=== PATIENT | female | born 1935 | race American Indian/Alaskan Native ===

== ENCOUNTER 2018-05-25 18:30 | Inpatient (IN) | payer MEDICARE, BC, SELFPAY ==
[2018-05-25 19:13] VITALS: BP 147/76; PULSE 70; RESP 18; TEMP 36.7; O2SAT 98
[2018-05-25 19:49] VITALS: BMI 35.9
[2018-05-25 20:03] VITALS: BMI 35.9
--- NOTE | 2018-05-25 20:16 | PCM.HP.STD ---
Problem List (1) Venous stasis ulcer of right lower extremity Status: Chronic (2) Coronary artery disease Status: Chronic (3) Atrial fibrillation Status: Chronic (4) COPD (chronic obstructive pulmonary disease) Status: Chronic (5) Sleep apnea Status: Chronic (6) Edema Status: Chronic (7) Neuropathic pain Status: Chronic (8) GERD (gastroesophageal reflux disease) Status: Chronic (9) Migraine Status: Chronic (10) Obesity Status: Chronic (11) Vitamin D deficiency Status: Chronic (12) Hypertension Status: Chronic Qualifiers: (13) Hypothyroidism Status: Chronic (14) Osteoarthritis (arthritis due to wear and tear of joints) Status: Chronic History of Present Illness Date of Admission: 05/25/18 Chief Complaint: Here for rehabilitation, strengthening, wound care, prior to discharge home. The patient is a 82 year old Female with below past medical history, [facility] resident, admitted to [facility] 05/22/2018 with non-healing venous stasis ulcer of right lower extremity. 08/01/2017 Patient was admitted to [facility] with bilateral lower extremity cellulitis, treated with antibiotics, whether she had cellulitis or venous stasis dermatitis was difficult to determine. Her wound culture did grow MSSA which was treated with short course of cephalexin. 05/25/2018 Admit to TCU with debility, here for rehabilitation, strengthening, wound care, prior to discharge home. 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) Vitamin D deficiency (Chronic) Neuropathy (Chronic) 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) Malnutrition (Chronic) Ulcer of right leg (Chronic) Cellulitis of right lower extremity (Chronic) Leg ulcer, left (Chronic) Edema leg (Chronic) Lymphedema of lower extremity (Chronic) Congestive heart failure (Chronic) History of myocardial infarction (Chronic) Incontinence of urine (Chronic) Hypertension (Chronic) Morbid obesity (Chronic) Hypothyroidism (Chronic) Hypercholesterolemia (Chronic) Osteoarthritis (arthritis due to wear and tear of joints) (Chronic) Rheumatoid arthritis (Chronic) Allergies No Known Allergies Allergy (Verified 08/01/17 12:37) Home Medications: Ambulatory Orders Medication Instructions Recorded Warfarin [Coumadin] 3 mg PO DAILY 01/17/17 Acetaminophen [Pain Relief Extra 1,000 mg PO Q8H PRN PRN 04/25/17 Strength] Aspirin [Aspir-Low] 81 mg PO QHS 04/25/17 Gabapentin [Neurontin] 300 mg PO BIDCM 04/25/17 Polyethylene Glycol 3350 [Miralax] 17 gm PO PRN PRN 04/25/17 Omeprazole 20 mg PO DAILY 04/26/17 Levothyroxine [Synthroid] 100 mcg PO DAILY@0600 08/01/17 Ascorbic Acid [Vitamin C] 250 mg PO DAILY 05/25/18 Docusate Sodium [Colace] 100 mg PO DAILY PRN PRN 05/25/18 Ergocalciferol [Vitamin D] 50,000 unit PO Q7D 05/25/18 Lisinopril [Zestril] 2.5 mg PO DAILY 05/25/18 Multivitamin with Iron 1 each PO DAILY 05/25/18 [Multivitamins with Iron] Torsemide [Demadex] 20 mg PO DAILY 05/25/18 Surgical History: herniorrhaphy, hysterectomy, total knee arthroplasty - Bilateral., tonsillectomy, - - Cardiac stents x 2, gastric bypass surgery, right ankle ORIF. 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 The patient's mother at the age of 90 with a history of arthritis. Paternal History Items: Heart Disease Review of Systems Constitutional: Denies: Chills, Fever, Weight Change HEENT: Denies: Head Aches, Sinus Congestion, Sinus Drainage Cardiovascular: Denies: Chest Pain, Palpitations Respiratory: Denies: Cough, Shortness of breath at rest, Sputum production Gastrointestinal: Denies: Abdominal Pain, Nausea, Vomiting Genitourinary: Denies: Dysuria Musculoskeletal: Denies: Joint Pain, Joint Tenderness Skin: Denies: Rash, Wounds Neurological: Denies: Numbness, Tingling, Focal weakness Psychiatric: Denies: Anxiety, Depression, Homicidal Ideations, Suicidal Ideations Hematologic/ Lymphatic: Denies: Easy Bruising, Easy Bleeding VTE Information - Inpt Only VTE Present on Admission: No VTE Mechan Device Prophylaxis: Knee High AURELIANO Hose VTE Pharm Prophylaxis ordered?: No Reason prophylaxis not ordered:: Treatment Not Indicated - Physical Exam General: Alert, Oriented x3, Cooperative HEENT: Atraumatic, PERRLA, EOMI, Normocephalic Neck: Supple, No JVD, Negative Carotid Bruits Lungs: Clear to auscultation, Normal air movement Cardiovascular: Regular rate, No murmurs Abdomen: Bowel Sounds Present, Soft, Non Tender Extremities: Capillary Refill Less than 3 Seconds, - - Bilateral lower extremities with compressive dressings. Skin: No rashes, No breakdown Musculoskeletal: No Tenderness to Palpation of Joints or Extremities Neurological: Cranial nerves II-XII grossly intact Psych/Mental Status: Normal Affect, Appropriate Weight: 94.801 kg Body Mass Index (BMI) 35.9 Assessment/Plan All Active Problems Right tibial fracture (Resolved) Cellulitis of the legs (Acute) 82 year old female with below past medical history hospitalized for non-healing right lower extremity venous stasis ulcer, admitted to TCU with debility, here for rehabilitation, strengthening, wound care, prior to discharge home. Debility - PT/OT. Pain - Tylenol 1000MG Q8H PRN mild pain. Bowel - Miralax 17GM daily, Senna/colace 1 tablet BID, Dulcolax 10MG PO daily PRN. Pneumonia vaccination - Administer Prevnar 13 and/or Pneumovax 23 as necessary. DVT prophylaxis - Not necessary, already on warfarin. RLE venous stasis ulcer - consult Anat Pizarro RN for wound management. Vitamin C deficiency - Vitamin C 250MG daily. Coronary Artery Disease - Lisinopril 2.5MG daily, Aspirin 81MG daily. Nutrition - Ensure Enlive 120ML 4x/day, MVI daily. Vitamin D deficiency - D2 50,000 units per week. Edema - Lasix 40MG daily. Neuropathic pain - Gabapentin 300MG BID. Hypothyroidism - Levothyroxine 100MCG daily. GERD - Pantoprazole 20MG daily. Atrial Fibrillation - Warfarin 3MG daily, follow INR.
--- NOTE | 2018-05-25 20:20 | NURSING ---
Code status discussed with pt and [id number]/ POA Sharda Xavier, pt wishes to be a full code.
--- NOTE | 2018-05-25 20:26 | HP.PCM_ITS ---
Problem List (1) Venous stasis ulcer of right lower extremity Status: Chronic (2) Coronary artery disease Status: Chronic (3) Atrial fibrillation Status: Chronic (4) COPD (chronic obstructive pulmonary disease) Status: Chronic (5) Sleep apnea Status: Chronic (6) Edema Status: Chronic (7) Neuropathic pain Status: Chronic (8) GERD (gastroesophageal reflux disease) Status: Chronic (9) Migraine Status: Chronic (10) Obesity Status: Chronic (11) Vitamin D deficiency Status: Chronic (12) Hypertension Status: Chronic Qualifiers: (13) Hypothyroidism Status: Chronic (14) Osteoarthritis (arthritis due to wear and tear of joints) Status: Chronic History of Present Illness Date of Admission: 05/25/18 Chief Complaint: Here for rehabilitation, strengthening, wound care, prior to discharge home. The patient is a 82 year old Female with below past medical history, [facility] resident, admitted to [facility] 05/22/2018 with non-healing venous stasis ulcer of right lower extremity. 08/01/2017 Patient was admitted to [facility] with bilateral lower extremity cellulitis, treated with antibiotics, whether she had cellulitis or venous stasis dermatitis was difficult to determine. Her wound culture did grow MSSA which was treated with short course of cephalexin. 05/25/2018 Admit to TCU with debility, here for rehabilitation, strengthening, wound care, prior to discharge home. 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) Vitamin D deficiency (Chronic) Neuropathy (Chronic) 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) Malnutrition (Chronic) Ulcer of right leg (Chronic) Cellulitis of right lower extremity (Chronic) Leg ulcer, left (Chronic) Edema leg (Chronic) Lymphedema of lower extremity (Chronic) Congestive heart failure (Chronic) History of myocardial infarction (Chronic) Incontinence of urine (Chronic) Hypertension (Chronic) Morbid obesity (Chronic) Hypothyroidism (Chronic) Hypercholesterolemia (Chronic) Osteoarthritis (arthritis due to wear and tear of joints) (Chronic) Rheumatoid arthritis (Chronic) Allergies No Known Allergies Allergy (Verified 08/01/17 12:37) Home Medications: Ambulatory Orders Medication Instructions Recorded Warfarin [Coumadin] 3 mg PO DAILY 01/17/17 Acetaminophen [Pain Relief Extra 1,000 mg PO Q8H PRN PRN 04/25/17 Strength] Aspirin [Aspir-Low] 81 mg PO QHS 04/25/17 Gabapentin [Neurontin] 300 mg PO BIDCM 04/25/17 Polyethylene Glycol 3350 [Miralax] 17 gm PO PRN PRN 04/25/17 Omeprazole 20 mg PO DAILY 04/26/17 Levothyroxine [Synthroid] 100 mcg PO DAILY@0600 08/01/17 Ascorbic Acid [Vitamin C] 250 mg PO DAILY 05/25/18 Docusate Sodium [Colace] 100 mg PO DAILY PRN PRN 05/25/18 Ergocalciferol [Vitamin D] 50,000 unit PO Q7D 05/25/18 Lisinopril [Zestril] 2.5 mg PO DAILY 05/25/18 Multivitamin with Iron 1 each PO DAILY 05/25/18 [Multivitamins with Iron] Torsemide [Demadex] 20 mg PO DAILY 05/25/18 Surgical History: herniorrhaphy, hysterectomy, total knee arthroplasty - Bilateral., tonsillectomy, - - Cardiac stents x 2, gastric bypass surgery, right ankle ORIF. 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 The patient's mother at the age of 90 with a history of arthritis. Paternal History Items: Heart Disease Review of Systems Constitutional: Denies: Chills, Fever, Weight Change HEENT: Denies: Head Aches, Sinus Congestion, Sinus Drainage Cardiovascular: Denies: Chest Pain, Palpitations Respiratory: Denies: Cough, Shortness of breath at rest, Sputum production Gastrointestinal: Denies: Abdominal Pain, Nausea, Vomiting Genitourinary: Denies: Dysuria Musculoskeletal: Denies: Joint Pain, Joint Tenderness Skin: Denies: Rash, Wounds Neurological: Denies: Numbness, Tingling, Focal weakness Psychiatric: Denies: Anxiety, Depression, Homicidal Ideations, Suicidal Ideations Hematologic/ Lymphatic: Denies: Easy Bruising, Easy Bleeding VTE Information - Inpt Only VTE Present on Admission: No VTE Mechan Device Prophylaxis: Knee High AURELIANO Hose VTE Pharm Prophylaxis ordered?: No Reason prophylaxis not ordered:: Treatment Not Indicated - Physical Exam General: Alert, Oriented x3, Cooperative HEENT: Atraumatic, PERRLA, EOMI, Normocephalic Neck: Supple, No JVD, Negative Carotid Bruits Lungs: Clear to auscultation, Normal air movement Cardiovascular: Regular rate, No murmurs Abdomen: Bowel Sounds Present, Soft, Non Tender Extremities: Capillary Refill Less than 3 Seconds, - - Bilateral lower extremities with compressive dressings. Skin: No rashes, No breakdown Musculoskeletal: No Tenderness to Palpation of Joints or Extremities Neurological: Cranial nerves II-XII grossly intact Psych/Mental Status: Normal Affect, Appropriate Weight: 94.801 kg Body Mass Index (BMI) 35.9 Assessment/Plan All Active Problems Right tibial fracture (Resolved) Cellulitis of the legs (Acute) 82 year old female with below past medical history hospitalized for non-healing right lower extremity venous stasis ulcer, admitted to TCU with debility, here for rehabilitation, strengthening, wound care, prior to discharge home. * Debility - PT/OT. * Pain - Tylenol 1000MG Q8H PRN mild pain. * Bowel - Miralax 17GM daily, Senna/colace 1 tablet BID, Dulcolax 10MG PO daily PRN. * Pneumonia vaccination - Administer Prevnar 13 and/or Pneumovax 23 as necessary. * DVT prophylaxis - Not necessary, already on warfarin. * RLE venous stasis ulcer - consult Anat Pizarro RN for wound management. * Vitamin C deficiency - Vitamin C 250MG daily. * Coronary Artery Disease - Lisinopril 2.5MG daily, Aspirin 81MG daily. * Nutrition - Ensure Enlive 120ML 4x/day, MVI daily. * Vitamin D deficiency - D2 50,000 units per week. * Edema - Lasix 40MG daily. * Neuropathic pain - Gabapentin 300MG BID. * Hypothyroidism - Levothyroxine 100MCG daily. * GERD - Pantoprazole 20MG daily. * Atrial Fibrillation - Warfarin 3MG daily, follow INR.
[2018-05-25] MEDS: Acetaminophen 500 MG Tablet 1000 MG PO (21:23)
--- NOTE | 2018-05-25 21:49 | NURSING ---
Dr. Sweet updated on increased pain. N.O entered.
[2018-05-26] MEDS: oxyCODONE 5 MG Tablet PO ×4 (01:54→21:42)
[2018-05-26] MEDS: Senna/Docusate Sodium 1 Tablet PO ×2 (04:49→17:08)
[2018-05-26] MEDS: Polyethylene Glycol 3350 17 GM PACKET PO (04:49)
[2018-05-26] MEDS: Levothyroxine 100 MCG Tablet PO (04:49)
[2018-05-26] MEDS: Furosemide 40 MG Tablet PO (04:49)
[2018-05-26] MEDS: Pantoprazole Sodium 20 MG Tablet PO (04:49)
[2018-05-26] MEDS: Lisinopril 2.5 MG Tablet PO (04:49)
[2018-05-26] MEDS: Ascorbic Acid 500 MG Tablet 250 MG PO (04:50)
[2018-05-26] MEDS: Menthol/Lanolin/Calamine/Znox 113 GM Tube 1 APPLIC TOPICAL ×2 (04:52→21:50)
[2018-05-26] MEDS: Nystatin Powder 15gm Bottle 1 APPLIC TOPICAL ×2 (04:52→21:45)
--- NOTE | 2018-05-26 04:54 | NURSING ---
pt states that she needs something for nausea because if she smells food it will make her sick to her stomach. nurse is aware
[2018-05-26 06:18] LABS: Absolute Lymphocyte Count 0.99 X10^3/ul (0.83-4.51); Absolute Neutrophil Count 3.9 X10^3/uL (2.0-7.7); Basophil# 0.03 X10^3/uL; Basophil% 0.5 % (0-1); Eosinophils% 3.6 % (0-5); Hematocrit 32.3 % (37-47); Hemoglobin 9.5 g/dl (12.0-15.0); Lymphocyte # 0.99 X10^3/ul (4.0); Lymphocyte % 17.8 % (19-41); Mean Corp Hgb Conc 29.4 g/gl (32-36); Mean Corpuscular Hgb 27.1 pg (27.0-32.0); Mean Platelet Vol. 9.6 fl (6.2-12.0); Monocyte# 0.45 X10^3/uL; Monocyte% 8.1 % (0-10); Neutrophil # 3.86 X10^3/uL (2.7-7.7); Neutrophil % 69.6 % (47-70); Platelet Count 250 K/mm3 (150-450); RBC Distribution Width SD 56.5 fl (35.1-43.9); Red Blood Count 3.51 M/mm3 (4.2-5.4); White Blood Count 5.6 K/mm3 (4.4-11.0)
[2018-05-26 06:25] LABS: International Normalized Ratio 1.7; Prothrombin Time (Protime)PT. 19.9 SECONDS (11.7-14.9)
[2018-05-26 06:33] LABS: Anion Gap 5 (5-15); BUN 20 mg/dL (7-18); BUN/Creat Ratio 25.4 RATIO (10-20); Calcium,Total 8.1 mg/dL (8.5-10.1); Chloride 104 mmol/L (98-107); Creatinine, Serum 0.79 mg/dL (0.55-1.02); EST Glomerular Filtration Rate 74 mL/min (>60); Est Glom Filt Rate - Afr Amer 90 mL/min (>60); Glucose 108 mg/dL (74-106); Potassium 4.4 mmol/L (3.5-5.1); Sodium Level 137 mmol/L (136-145)
[2018-05-26 06:37] LABS: POSITIVE COUNT NO; POSITIVE DIFFERENTIAL NO; POSITIVE MORPHOLOGY NO
[2018-05-26 06:38] VITALS: O2SAT 95
[2018-05-26] MEDS: Multivitamins,Ther W-Minerals Tablet 1 TABLET PO (09:07)
[2018-05-26] MEDS: Gabapentin 300 MG Capsule PO ×2 (09:07→17:09)
[2018-05-26] MEDS: Oxymetazoline 0.05% 1 SPRAY SPRAY.BTL 2 SPRAY NASAL (09:12)
[2018-05-26] MEDS: Tuberculin,Purif.prot.deriv. 50 TU/ML Vial 5 ML ID (09:17)
--- NOTE | 2018-05-26 11:28 | CASEMGMT ---
Social Work Assessment completed with resident. Resident presenting as irritated. This manager social responsibility inquiring how resident is doing. Resident reporting to be tired but open to this manager social responsibility completing assessment. Throughout assessment resident would take extended periods of time to respond to questions and did not initiate conversation. When this manager social responsibility asked if resident has a history of current diagnosis of depression. Resident leaned up in the chair and reporting to have lost a son 1 month ago and wanted to know what do you think. This manager social responsibility exploring the grieving process with resident. Resident reluctant to speak much about where resident currently is in the grieving process and reporting to not want to talk about it at this time. Resident was open to this manager social responsibility contacting resident [id number] (resident son, that ). Attempting to contact resident daughter in law, no answer at this time, was not able to leave a voicemail. Resident reporting to have had 6 children total and to have now lost 2 sons. Emotional support given. Will continue to follow. Jayda YOO, MOLD STAMPER AND REPAIRER
--- NOTE | 2018-05-26 12:26 | NURSING ---
NEW ORDER TO INCREASE COUMADIN ON FRIDAYS TO 4MG AND 3 MG REST OF WEEK. INR 1.7 TODAY.
[2018-05-26 15:36] VITALS: BP 106/40; PULSE 66; RESP 20; TEMP 36.6; O2SAT 96
--- NOTE | 2018-05-26 15:38 | NURSING ---
Labs reviewed by Jeffrey Gannon NP today. no new orders.
[2018-05-26 16:29] VITALS: PULSE 65; RESP 18; O2SAT 96
[2018-05-26] MEDS: Ondansetron ODT 4 MG Tablet PO (17:09)
[2018-05-26] MEDS: Aspirin E.C. 81 MG Tablet PO (21:39)
[2018-05-27] MEDS: oxyCODONE 5 MG Tablet PO ×4 (05:34→21:43)
[2018-05-27] MEDS: Furosemide 40 MG Tablet PO (05:35)
[2018-05-27] MEDS: Levothyroxine 100 MCG Tablet PO (05:35)
[2018-05-27] MEDS: Pantoprazole Sodium 20 MG Tablet PO (05:35)
[2018-05-27] MEDS: Senna/Docusate Sodium 1 Tablet PO ×2 (05:35→17:17)
[2018-05-27] MEDS: Ascorbic Acid 500 MG Tablet 250 MG PO (05:35)
[2018-05-27] MEDS: Lisinopril 2.5 MG Tablet PO (05:36)
[2018-05-27] MEDS: Polyethylene Glycol 3350 17 GM PACKET PO (05:37)
[2018-05-27] MEDS: Menthol/Lanolin/Calamine/Znox 113 GM Tube 1 APPLIC TOPICAL ×2 (05:41→21:45)
[2018-05-27] MEDS: Nystatin Powder 15gm Bottle 1 APPLIC TOPICAL ×2 (05:42→21:45)
--- NOTE | 2018-05-27 07:32 | NURSING ---
pt has a yeast odor to vagina area had the Rn Mari look at it also. Pt also has jere lip stated having some burning got some lip moisture for her lips and applied.
[2018-05-27] MEDS: Multivitamins,Ther W-Minerals Tablet 1 TABLET PO (09:28)
[2018-05-27] MEDS: Gabapentin 300 MG Capsule PO ×2 (09:28→17:17)
[2018-05-27] MEDS: Ondansetron ODT 4 MG Tablet PO (12:42)
[2018-05-27 16:00] VITALS: BP 105/58; PULSE 74; RESP 18; TEMP 37.1; O2SAT 93
[2018-05-27] MEDS: Aspirin E.C. 81 MG Tablet PO (21:46)
[2018-05-28] MEDS: Menthol/Lanolin/Calamine/Znox 113 GM Tube 1 APPLIC TOPICAL ×2 (05:48→21:17)
[2018-05-28] MEDS: oxyCODONE 5 MG Tablet PO ×3 (05:48→21:15)
[2018-05-28] MEDS: Ascorbic Acid 500 MG Tablet 250 MG PO (05:49)
[2018-05-28] MEDS: Levothyroxine 100 MCG Tablet PO (05:55)
[2018-05-28] MEDS: Pantoprazole Sodium 20 MG Tablet PO (05:55)
[2018-05-28] MEDS: Nystatin Powder 15gm Bottle 1 APPLIC TOPICAL ×2 (05:55→21:18)
[2018-05-28] MEDS: Lisinopril 2.5 MG Tablet PO (05:55)
[2018-05-28] MEDS: Senna/Docusate Sodium 1 Tablet PO ×2 (05:56→17:59)
[2018-05-28] MEDS: Furosemide 40 MG Tablet PO (05:56)
[2018-05-28 06:53] VITALS: O2SAT 95
[2018-05-28] MEDS: Gabapentin 300 MG Capsule PO ×2 (08:21→17:59)
[2018-05-28] MEDS: Multivitamins,Ther W-Minerals Tablet 1 TABLET PO (08:21)
[2018-05-28] MEDS: Ondansetron ODT 4 MG Tablet PO (09:16)
[2018-05-28 16:00] VITALS: BP 116/70; PULSE 79; RESP 18; TEMP 36.7; O2SAT 92
[2018-05-28] MEDS: Aspirin E.C. 81 MG Tablet PO (21:15)
[2018-05-28 22:00] VITALS: PULSE 78; RESP 18; O2SAT 93
[2018-05-29] MEDS: oxyCODONE 5 MG Tablet PO ×4 (01:20→21:00)
[2018-05-29] MEDS: Ondansetron ODT 4 MG Tablet PO ×2 (01:34→10:18)
[2018-05-29] MEDS: Levothyroxine 100 MCG Tablet PO (05:19)
[2018-05-29] MEDS: Ascorbic Acid 500 MG Tablet 250 MG PO (05:20)
[2018-05-29] MEDS: Senna/Docusate Sodium 1 Tablet PO ×2 (05:20→17:04)
[2018-05-29] MEDS: Nystatin Powder 15gm Bottle 1 APPLIC TOPICAL ×2 (05:20→20:16)
[2018-05-29] MEDS: Lisinopril 2.5 MG Tablet PO (05:20)
[2018-05-29] MEDS: Pantoprazole Sodium 20 MG Tablet PO (05:20)
[2018-05-29] MEDS: Polyethylene Glycol 3350 17 GM PACKET PO (05:21)
[2018-05-29] MEDS: Furosemide 40 MG Tablet PO (05:21)
[2018-05-29] MEDS: Menthol/Lanolin/Calamine/Znox 113 GM Tube 1 APPLIC TOPICAL ×2 (05:21→20:14)
[2018-05-29 05:53] LABS: International Normalized Ratio 1.8; Prothrombin Time (Protime)PT. 20.7 SECONDS (11.7-14.9)
[2018-05-29] MEDS: Gabapentin 300 MG Capsule PO ×2 (08:38→17:04)
[2018-05-29] MEDS: Multivitamins,Ther W-Minerals Tablet 1 TABLET PO (08:38)
--- NOTE | 2018-05-29 12:52 | PCM.PN.RX ---
<Geovanni Moore D - Last Filed: 05/29/18 12:52> Progress Note - Pharmacy Subjective: TCU Admission Objective: Allergies No Known Allergies Allergy (Verified 08/01/17 12:37) Current Medications Generic Name Dose Route Start Last Admin Trade Name Freq PRN Reason Stop Dose Admin Acetaminophen 1,000 mg 05/25/18 20:33 05/25/18 21:23 Tylenol PO 1,000 mg Q8H PRN PRN Administration MILD PAIN (1-3/10) Artificial Tears 1 drop 05/26/18 10:12 05/29/18 05:19 Tears Naturale, Artificial Tears EACH EYE 1 drop Q1H PRN PRN Administration DRY EYES Ascorbic Acid 250 mg 05/26/18 06:00 05/29/18 05:20 Vitamin C PO 250 mg DAILY [facility]STOPHER Administration Aspirin 81 mg 05/26/18 22:00 05/28/18 21:15 Ecotrin PO 81 mg QHS CH[facility]STOPHER Administration Bisacodyl 10 mg 05/25/18 20:32 Dulcolax PO DAILY PRN Constipation Calamine/Phenol 1 applic 05/26/18 06:00 05/29/18 05:21 Calmoseptine Ointment TOPICAL 1 applicatio 0600,2200 [facility] Administration Protocol Emollient Ointment 1 applic 05/26/18 06:00 05/29/18 05:21 Eucerin Intensive Repair TOPICAL 1 applicatio 0600,2200 [facility] Administration Protocol Ergocalciferol 50,000 unit 05/29/18 08:00 05/29/18 08:38 Vitamin D PO 50,000 unit Q7D [facility]STOPHER Administration Furosemide 40 mg 05/26/18 06:00 05/29/18 05:21 Lasix PO 40 mg DAILY [facility]STOPHER Administration Gabapentin 300 mg 05/26/18 08:00 05/29/18 08:38 Neurontin PO 300 mg BIDCM CH[facility]STOPHER Administration Levothyroxine Sodium 100 mcg 05/26/18 06:00 05/29/18 05:19 Synthroid PO 100 mcg DAILY@0600 [facility] Administration Lisinopril 2.5 mg 05/26/18 06:00 05/29/18 05:20 Zestril PO 2.5 mg DAILY [facility] Administration Multivitamins/Minerals 1 tablet 05/26/18 08:00 05/29/18 08:38 Multivitamin With Minerals PO 1 tablet DAILY@0800 [facility] Administration Nutritional Formula (Lactose Free) 120 ml 05/26/18 06:00 05/29/18 11:31 Ensure Enlive PO Not Given 4X/DAY [facility] Nystatin 1 applic 05/26/18 06:00 05/29/18 05:20 Mycostatin Powder TOPICAL 1 applicatio 0600,2200 [facility] Administration Protocol Ondansetron HCl 4 mg 05/26/18 10:11 05/29/18 10:18 Zofran Odt PO 4 mg Q8H PRN PRN Administration NAUSEA Oxycodone HCl 5 - 10 mg 05/29/18 09:19 Oxyir PO Q6H PRN PRN MOD-SEVERE PAIN (4-10/10) Pantoprazole Sodium 20 mg 05/26/18 06:00 05/29/18 05:20 Protonix PO 20 mg DAILY [facility] Administration Polyethylene Glycol 17 gm 05/26/18 06:00 05/29/18 05:21 Miralax PO 17 gm DAILY [facility] Administration Senna/Docusate Sodium 1 tablet 05/26/18 06:00 05/29/18 05:20 Senokot-S, Jennifer-Colace PO 1 tablet BID [facility] Administration Tuberculin PPD 5 tu 06/02/18 10:00 Tubersol, Aplisol, Ppd ID 06/02/18 10:01 X1 ONE Warfarin Sodium 3 mg 05/25/18 19:11 05/28/18 17:59 Coumadin (Pbkc) PO 3 mg DAILY@1700 [facility] Administration Warfarin Sodium 1 mg 05/29/18 17:00 Coumadin (Pbkc) PO MOFR@1700 [facility] Problem List Venous stasis ulcer of right lower extremity (Chronic) Coronary artery disease (Chronic) Atrial fibrillation (Chronic) COPD (chronic obstructive pulmonary disease) (Chronic) Sleep apnea (Chronic) Edema (Chronic) Neuropathic pain (Chronic) GERD (gastroesophageal reflux disease) (Chronic) Migraine (Chronic) Obesity (Chronic) Vital Signs Temp Pulse Resp BP Pulse Ox 98.0 F 78 18 116/70 93 05/28/18 16:00 05/28/18 22:00 05/28/18 22:00 05/28/18 16:00 05/28/18 22:00 Oxygen Flow Rate (L/min) 1 Oxygen Delivery Method Nasal Cannula Weight: 94.801 kg Body Mass Index (BMI) 35.9 Sodium 137 mmol/L (136-145) 05/26/18 05:05 Potassium 4.4 mmol/L (3.5-5.1) 05/26/18 05:05 Chloride 104 mmol/L (98-107) 05/26/18 05:05 Carbon Dioxide 28.0 mmol/L (21.0-32.0) 05/26/18 05:05 Anion Gap 5 (5-15) 05/26/18 05:05 BUN 20 mg/dL (7-18) H 05/26/18 05:05 Creatinine 0.79 mg/dL (0.55-1.02) 05/26/18 05:05 Est GFR (MDRD) Af Amer 90 mL/min (>60) 05/26/18 05:05 Est GFR (MDRD) Non-Af 74 mL/min (>60) 05/26/18 05:05 BUN/Creatinine Ratio 25.4 RATIO (10-20) H 05/26/18 05:05 Glucose 108 mg/dL (74-106) H 05/26/18 05:05 Assessment/Plan: * 1) Pain * APAP for mild pain, oxycodone for all levels of pain, gabapentin. Please update instructions on APAP/oxycodone so scores do not overlap. Continue to monitor daily pain scores, prn medication use. 2) CAD/HTN/Edema Warfarin for goal INR 2-3, ASA, lisinopril, furosemide. Continue to monitor BP/HR, renal function, electrolytes, PT/INR, s/s bleeding/clot. 3) GI Pantoprazole daily, ondansetron prn. Continue to monitor s/s GI distress, prn medication use. 4) Nutrition Multivitamin, D, Ensure, C. Continue to monitor clinically. * 5) HSV Docosonal 5x daily. Continue to monitor clinically. Please consider adding stop date. 6) Hypothyroidism Levothyroxine daily. Continue to monitor s/s hyper/hypothyroidism. Psychotropic Medications: None Unnecessary Medications: None Bowel Regimen: 7) Senna/s, PEG, prn bisacodyl. Continue to monitor prn medication use, for constipation/diarrhea. Date of Note:: 05/29/18 - Provider Comments Provider responsibility: Provider responsible to enter orders to implement recommendations <Brody Sweet Chi - Last Filed: 06/02/18 11:17> Progress Note - Pharmacy Subjective: [] Objective: Allergies No Known Allergies Allergy (Verified 08/01/17 12:37) Current Medications Generic Name Dose Route Start Last Admin Trade Name Freq PRN Reason Stop Dose Admin Acetaminophen 1,000 mg 05/25/18 20:33 05/31/18 00:41 Tylenol PO 1,000 mg Q8H PRN PRN Administration MILD PAIN (1-3/10) Artificial Tears 1 drop 05/26/18 10:12 05/29/18 05:19 Tears Naturale, Artificial Tears EACH EYE 1 drop Q1H PRN PRN Administration DRY EYES Ascorbic Acid 250 mg 05/26/18 06:00 06/02/18 08:49 Vitamin C PO 250 mg DAILY CHRISTOPHER Administration Aspirin 81 mg 05/26/18 22:00 06/01/18 20:06 Ecotrin PO 81 mg QHS CHRISTOPHER Administration Bisacodyl 10 mg 05/25/18 20:32 06/01/18 15:34 Dulcolax PO 10 mg DAILY PRN Administration Constipation Calamine/Phenol 1 applic 05/26/18 06:00 06/02/18 06:20 Calmoseptine Ointment TOPICAL 1 applicatio 0600,2200 [facility] Administration Protocol Ciprofloxacin HCl 250 mg 06/02/18 18:00 Cipro PO 06/12/18 18:01 BID [facility] Emollient Ointment 1 applic 05/26/18 06:00 06/02/18 06:20 Eucerin Intensive Repair TOPICAL 1 applicatio 0600,2200 [facility] Administration Protocol Ergocalciferol 50,000 unit 05/29/18 08:00 05/29/18 08:38 Vitamin D PO 50,000 unit Q7D CH[facility]STOPHER Administration Furosemide 40 mg 05/26/18 06:00 06/02/18 08:48 Lasix PO 40 mg DAILY CHRISTOPHER Administration Gabapentin 300 mg 05/26/18 08:00 06/02/18 08:50 Neurontin PO 300 mg BIDCM [facility] Administration Levothyroxine Sodium 100 mcg 05/26/18 06:00 06/02/18 06:23 Synthroid PO 100 mcg DAILY@0600 [facility] Administration Lisinopril 2.5 mg 05/26/18 06:00 06/02/18 10:03 Zestril PO Not Given DAILY [facility] Multivitamins/Minerals 1 tablet 05/26/18 08:00 06/02/18 08:50 Multivitamin With Minerals PO 1 tablet DAILY@0800 [facility] Administration Nutritional Formula 1 packet 05/31/18 17:00 06/02/18 08:50 Carlo - [place] Flavor PO 1 packet BIDCM [facility] Administration Nystatin 1 applic 05/26/18 06:00 06/02/18 06:20 Mycostatin Powder TOPICAL 1 applicatio 0600,2200 [facility] Administration Protocol Ondansetron HCl 4 mg 05/26/18 10:11 06/02/18 06:25 Zofran Odt PO 4 mg Q8H PRN PRN Administration NAUSEA Oxycodone HCl 5 - 10 mg 05/29/18 09:19 06/02/18 06:18 Oxyir PO 10 mg Q6H PRN PRN Administration MOD-SEVERE PAIN (4-10/10) Pantoprazole Sodium 20 mg 05/26/18 06:00 06/02/18 08:48 Protonix PO 20 mg DAILY [facility] Administration Polyethylene Glycol 17 gm 05/26/18 06:00 06/02/18 08:48 Miralax PO 17 gm DAILY [facility] Administration Senna/Docusate Sodium 1 tablet 05/26/18 06:00 06/02/18 08:49 Senokot-S, Jennifer-Colace PO 1 tablet BID [facility] Administration Sodium Polystyrene Sulfonate 15 gm 06/02/18 10:53 Kayexalate PO 06/02/18 10:54 X1 ONE Warfarin Sodium 4 mg 06/02/18 17:00 Coumadin (Pbkc) PO MoWeFr@1700 [facility] Warfarin Sodium 3 mg 06/03/18 17:00 Coumadin (Pbkc) PO SuTuThSa@1700 [facility] Problem List Venous stasis ulcer of right lower extremity (Chronic) Coronary artery disease (Chronic) Atrial fibrillation (Chronic) COPD (chronic obstructive pulmonary disease) (Chronic) Sleep apnea (Chronic) Edema (Chronic) Neuropathic pain (Chronic) GERD (gastroesophageal reflux disease) (Chronic) Migraine (Chronic) Obesity (Chronic) Vital Signs Temp Pulse Resp BP Pulse Ox 98.0 F 62 18 95/50 L 93 06/01/18 15:33 06/02/18 08:40 06/02/18 07:00 06/02/18 08:40 06/02/18 08:40 Oxygen Flow Rate (L/min) 3 Oxygen Delivery Method Nasal Cannula Weight: 91.3 kg Body Mass Index (BMI) 35.9 Sodium 135 mmol/L (136-145) L 06/02/18 05:10 Potassium 5.2 mmol/L (3.5-5.1) H 06/02/18 05:10 Chloride 97 mmol/L (98-107) L 06/02/18 05:10 Carbon Dioxide 32.0 mmol/L (21.0-32.0) 06/02/18 05:10 Anion Gap 6 (5-15) 06/02/18 05:10 BUN 46 mg/dL (7-18) H 06/02/18 05:10 Creatinine 1.24 mg/dL (0.55-1.02) H 06/02/18 05:10 Est GFR (MDRD) Af Amer 53 mL/min (>60) L 06/02/18 05:10 Est GFR (MDRD) Non-Af 44 mL/min (>60) L 06/02/18 05:10 BUN/Creatinine Ratio 37.1 RATIO (10-20) H 06/02/18 05:10 Glucose 81 mg/dL (74-106) 06/02/18 05:10 Assessment/Plan: Psychotropic Medications: Unnecessary Medications: Bowel Regimen: - Provider Comments Provider responsibility: Provider responsible to enter orders to implement recommendations Provider Comments to Recommendations by Pharmacy: Agree
--- NOTE | 2018-05-29 12:58 | PHA.CONS_ITS ---
<Geovanni Moore D - Last Filed: 05/29/18 12:52> Progress Note - Pharmacy Subjective: TCU Admission Objective: Allergies No Known Allergies Allergy (Verified 08/01/17 12:37) Current Medications Generic Name Dose Route Start Last Admin Trade Name Freq PRN Reason Stop Dose Admin Acetaminophen 1,000 mg 05/25/18 20:33 05/25/18 21:23 Tylenol PO 1,000 mg Q8H PRN PRN Administration MILD PAIN (1-3/10) Artificial Tears 1 drop 05/26/18 10:12 05/29/18 05:19 Tears Naturale, Artificial Tears EACH EYE 1 drop Q1H PRN PRN Administration DRY EYES Ascorbic Acid 250 mg 05/26/18 06:00 05/29/18 05:20 Vitamin C PO 250 mg DAILY CH[facility]STOPHER Administration Aspirin 81 mg 05/26/18 22:00 05/28/18 21:15 Ecotrin PO 81 mg QHS CH[facility]STOPHER Administration Bisacodyl 10 mg 05/25/18 20:32 Dulcolax PO DAILY PRN Constipation Calamine/Phenol 1 applic 05/26/18 06:00 05/29/18 05:21 Calmoseptine Ointment TOPICAL 1 applicatio 0600,2200 [facility] Administration Protocol Emollient Ointment 1 applic 05/26/18 06:00 05/29/18 05:21 Eucerin Intensive Repair TOPICAL 1 applicatio 0600,2200 [facility] Administration Protocol Ergocalciferol 50,000 unit 05/29/18 08:00 05/29/18 08:38 Vitamin D PO 50,000 unit Q7D CH[facility]STOPHER Administration Furosemide 40 mg 05/26/18 06:00 05/29/18 05:21 Lasix PO 40 mg DAILY [facility]STOP[facility] Administration Gabapentin 300 mg 05/26/18 08:00 05/29/18 08:38 Neurontin PO 300 mg BIDCM [facility] Administration Levothyroxine Sodium 100 mcg 05/26/18 06:00 05/29/18 05:19 Synthroid PO 100 mcg DAILY@0600 [facility] Administration Lisinopril 2.5 mg 05/26/18 06:00 05/29/18 05:20 Zestril PO 2.5 mg DAILY [facility] Administration Multivitamins/Minerals 1 tablet 05/26/18 08:00 05/29/18 08:38 Multivitamin With Minerals PO 1 tablet DAILY@0800 [facility] Administration Nutritional Formula (Lactose Free) 120 ml 05/26/18 06:00 05/29/18 11:31 Ensure Enlive PO Not Given 4X/DAY [facility] Nystatin 1 applic 05/26/18 06:00 05/29/18 05:20 Mycostatin Powder TOPICAL 1 applicatio 0600,2200 [facility] Administration Protocol Ondansetron HCl 4 mg 05/26/18 10:11 05/29/18 10:18 Zofran Odt PO 4 mg Q8H PRN PRN Administration NAUSEA Oxycodone HCl 5 - 10 mg 05/29/18 09:19 Oxyir PO Q6H PRN PRN MOD-SEVERE PAIN (4-10/10) Pantoprazole Sodium 20 mg 05/26/18 06:00 05/29/18 05:20 Protonix PO 20 mg DAILY [facility] Administration Polyethylene Glycol 17 gm 05/26/18 06:00 05/29/18 05:21 Miralax PO 17 gm DAILY [facility] Administration Senna/Docusate Sodium 1 tablet 05/26/18 06:00 05/29/18 05:20 Senokot-S, Jennifer-Colace PO 1 tablet BID [facility] Administration Tuberculin PPD 5 tu 06/02/18 10:00 Tubersol, Aplisol, Ppd ID 06/02/18 10:01 X1 ONE Warfarin Sodium 3 mg 05/25/18 19:11 05/28/18 17:59 Coumadin (Pbkc) PO 3 mg DAILY@1700 [facility] Administration Warfarin Sodium 1 mg 05/29/18 17:00 Coumadin (Pbkc) PO MOFR@1700 [facility] Problem List Venous stasis ulcer of right lower extremity (Chronic) Coronary artery disease (Chronic) Atrial fibrillation (Chronic) COPD (chronic obstructive pulmonary disease) (Chronic) Sleep apnea (Chronic) Edema (Chronic) Neuropathic pain (Chronic) GERD (gastroesophageal reflux disease) (Chronic) Migraine (Chronic) Obesity (Chronic) Vital Signs Temp Pulse Resp BP Pulse Ox 98.0 F 78 18 116/70 93 05/28/18 16:00 05/28/18 22:00 05/28/18 22:00 05/28/18 16:00 05/28/18 22:00 Oxygen Flow Rate (L/min) 1 Oxygen Delivery Method Nasal Cannula Weight: 94.801 kg Body Mass Index (BMI) 35.9 Sodium 137 mmol/L (136-145) 05/26/18 05:05 Potassium 4.4 mmol/L (3.5-5.1) 05/26/18 05:05 Chloride 104 mmol/L (98-107) 05/26/18 05:05 Carbon Dioxide 28.0 mmol/L (21.0-32.0) 05/26/18 05:05 Anion Gap 5 (5-15) 05/26/18 05:05 BUN 20 mg/dL (7-18) H 05/26/18 05:05 Creatinine 0.79 mg/dL (0.55-1.02) 05/26/18 05:05 Est GFR (MDRD) Af Amer 90 mL/min (>60) 05/26/18 05:05 Est GFR (MDRD) Non-Af 74 mL/min (>60) 05/26/18 05:05 BUN/Creatinine Ratio 25.4 RATIO (10-20) H 05/26/18 05:05 Glucose 108 mg/dL (74-106) H 05/26/18 05:05 Assessment/Plan: * 1) Pain * APAP for mild pain, oxycodone for all levels of pain, gabapentin. Please update instructions on APAP/oxycodone so scores do not overlap. Continue to monitor daily pain scores, prn medication use. 2) CAD/HTN/Edema Warfarin for goal INR 2-3, ASA, lisinopril, furosemide. Continue to monitor BP/HR, renal function, electrolytes, PT/INR, s/s bleeding/clot. 3) GI Pantoprazole daily, ondansetron prn. Continue to monitor s/s GI distress, prn medication use. 4) Nutrition Multivitamin, D, Ensure, C. Continue to monitor clinically. * 5) HSV Docosonal 5x daily. Continue to monitor clinically. Please consider adding stop date. 6) Hypothyroidism Levothyroxine daily. Continue to monitor s/s hyper/hypothyroidism. Psychotropic Medications: None Unnecessary Medications: None Bowel Regimen: 7) Senna/s, PEG, prn bisacodyl. Continue to monitor prn medication use, for constipation/diarrhea. Date of Note:: 05/29/18 - Provider Comments Provider responsibility: Provider responsible to enter orders to implement recommendations <Brody Sweet Chi - Last Filed: 06/02/18 11:17> Progress Note - Pharmacy Subjective: [] Objective: Allergies No Known Allergies Allergy (Verified 08/01/17 12:37) Current Medications Generic Name Dose Route Start Last Admin Trade Name Freq PRN Reason Stop Dose Admin Acetaminophen 1,000 mg 05/25/18 20:33 05/31/18 00:41 Tylenol PO 1,000 mg Q8H PRN PRN Administration MILD PAIN (1-3/10) Artificial Tears 1 drop 05/26/18 10:12 05/29/18 05:19 Tears Naturale, Artificial Tears EACH EYE 1 drop Q1H PRN PRN Administration DRY EYES Ascorbic Acid 250 mg 05/26/18 06:00 06/02/18 08:49 Vitamin C PO 250 mg DAILY [facility] Administration Aspirin 81 mg 05/26/18 22:00 06/01/18 20:06 Ecotrin PO 81 mg QHS [facility]STOP[facility] Administration Bisacodyl 10 mg 05/25/18 20:32 06/01/18 15:34 Dulcolax PO 10 mg DAILY PRN Administration Constipation Calamine/Phenol 1 applic 05/26/18 06:00 06/02/18 06:20 Calmoseptine Ointment TOPICAL 1 applicatio 0600,2200 [facility] Administration Protocol Ciprofloxacin HCl 250 mg 06/02/18 18:00 Cipro PO 06/12/18 18:01 BID [facility] Emollient Ointment 1 applic 05/26/18 06:00 06/02/18 06:20 Eucerin Intensive Repair TOPICAL 1 applicatio 0600,2200 [facility] Administration Protocol Ergocalciferol 50,000 unit 05/29/18 08:00 05/29/18 08:38 Vitamin D PO 50,000 unit Q7D [facility] Administration Furosemide 40 mg 05/26/18 06:00 06/02/18 08:48 Lasix PO 40 mg DAILY [facility] Administration Gabapentin 300 mg 05/26/18 08:00 06/02/18 08:50 Neurontin PO 300 mg BIDCM [facility] Administration Levothyroxine Sodium 100 mcg 05/26/18 06:00 06/02/18 06:23 Synthroid PO 100 mcg DAILY@0600 [facility] Administration Lisinopril 2.5 mg 05/26/18 06:00 06/02/18 10:03 Zestril PO Not Given DAILY [facility] Multivitamins/Minerals 1 tablet 05/26/18 08:00 06/02/18 08:50 Multivitamin With Minerals PO 1 tablet DAILY@0800 [facility] Administration Nutritional Formula 1 packet 05/31/18 17:00 06/02/18 08:50 Carlo - [place] Flavor PO 1 packet BIDCM [facility] Administration Nystatin 1 applic 05/26/18 06:00 06/02/18 06:20 Mycostatin Powder TOPICAL 1 applicatio 0600,2200 [facility] Administration Protocol Ondansetron HCl 4 mg 05/26/18 10:11 06/02/18 06:25 Zofran Odt PO 4 mg Q8H PRN PRN Administration NAUSEA Oxycodone HCl 5 - 10 mg 05/29/18 09:19 06/02/18 06:18 Oxyir PO 10 mg Q6H PRN PRN Administration MOD-SEVERE PAIN (4-10/10) Pantoprazole Sodium 20 mg 05/26/18 06:00 06/02/18 08:48 Protonix PO 20 mg DAILY [facility] Administration Polyethylene Glycol 17 gm 05/26/18 06:00 06/02/18 08:48 Miralax PO 17 gm DAILY [facility] Administration Senna/Docusate Sodium 1 tablet 05/26/18 06:00 06/02/18 08:49 Senokot-S, Jennifer-Colace PO 1 tablet BID [facility] Administration Sodium Polystyrene Sulfonate 15 gm 06/02/18 10:53 Kayexalate PO 06/02/18 10:54 X1 ONE Warfarin Sodium 4 mg 06/02/18 17:00 Coumadin (Pbkc) PO MoWeFr@1700 [facility] Warfarin Sodium 3 mg 06/03/18 17:00 Coumadin (Pbkc) PO SuTuThSa@1700 [facility] Problem List Venous stasis ulcer of right lower extremity (Chronic) Coronary artery disease (Chronic) Atrial fibrillation (Chronic) COPD (chronic obstructive pulmonary disease) (Chronic) Sleep apnea (Chronic) Edema (Chronic) Neuropathic pain (Chronic) GERD (gastroesophageal reflux disease) (Chronic) Migraine (Chronic) Obesity (Chronic) Vital Signs Temp Pulse Resp BP Pulse Ox 98.0 F 62 18 95/50 L 93 06/01/18 15:33 06/02/18 08:40 06/02/18 07:00 06/02/18 08:40 06/02/18 08:40 Oxygen Flow Rate (L/min) 3 Oxygen Delivery Method Nasal Cannula Weight: 91.3 kg Body Mass Index (BMI) 35.9 Sodium 135 mmol/L (136-145) L 06/02/18 05:10 Potassium 5.2 mmol/L (3.5-5.1) H 06/02/18 05:10 Chloride 97 mmol/L (98-107) L 06/02/18 05:10 Carbon Dioxide 32.0 mmol/L (21.0-32.0) 06/02/18 05:10 Anion Gap 6 (5-15) 06/02/18 05:10 BUN 46 mg/dL (7-18) H 06/02/18 05:10 Creatinine 1.24 mg/dL (0.55-1.02) H 06/02/18 05:10 Est GFR (MDRD) Af Amer 53 mL/min (>60) L 06/02/18 05:10 Est GFR (MDRD) Non-Af 44 mL/min (>60) L 06/02/18 05:10 BUN/Creatinine Ratio 37.1 RATIO (10-20) H 06/02/18 05:10 Glucose 81 mg/dL (74-106) 06/02/18 05:10 Assessment/Plan: Psychotropic Medications: Unnecessary Medications: Bowel Regimen: - Provider Comments Provider responsibility: Provider responsible to enter orders to implement recommendations Provider Comments to Recommendations by Pharmacy: Agree
--- NOTE | 2018-05-29 13:22 | NURSING ---
Jeffrey Gannon, RANJANA reviewed INR and is aware of pt c/o pain, N.O. received.
--- NOTE | 2018-05-29 15:00 | CASEMGMT ---
Brief interview for mental status (BIMS) and resident mood interview (PHQ-9) completed on this day. BIMS score 15. PHQ-9 score 02/24
--- NOTE | 2018-05-29 15:51 | NURSING ---
wound photo: right medial lower leg
--- NOTE | 2018-05-29 15:52 | NURSING ---
wound photo: right posterolateral lower leg
[2018-05-29 16:00] VITALS: BP 167/77; PULSE 53; RESP 18; TEMP 36.9; O2SAT 90
[2018-05-29 20:00] VITALS: PULSE 64; RESP 22
[2018-05-29] MEDS: Aspirin E.C. 81 MG Tablet PO (20:16)
[2018-05-30] MEDS: Acetaminophen 500 MG Tablet 1000 MG PO (00:30)
[2018-05-30] MEDS: oxyCODONE 5 MG Tablet PO ×3 (03:02→20:13)
[2018-05-30] MEDS: Menthol/Lanolin/Calamine/Znox 113 GM Tube 1 APPLIC TOPICAL ×2 (05:10→20:19)
[2018-05-30] MEDS: Ascorbic Acid 500 MG Tablet 250 MG PO (05:11)
[2018-05-30] MEDS: Levothyroxine 100 MCG Tablet PO (05:11)
[2018-05-30] MEDS: Pantoprazole Sodium 20 MG Tablet PO (05:11)
[2018-05-30] MEDS: Senna/Docusate Sodium 1 Tablet PO ×2 (05:12→16:59)
[2018-05-30] MEDS: Nystatin Powder 15gm Bottle 1 APPLIC TOPICAL ×2 (05:12→22:55)
[2018-05-30] MEDS: Furosemide 40 MG Tablet PO (05:12)
[2018-05-30] MEDS: Polyethylene Glycol 3350 17 GM PACKET PO (05:12)
[2018-05-30] MEDS: Lisinopril 2.5 MG Tablet PO (05:22)
[2018-05-30] MEDS: Multivitamins,Ther W-Minerals Tablet 1 TABLET PO (08:22)
[2018-05-30] MEDS: Ondansetron ODT 4 MG Tablet PO ×2 (08:22→16:59)
[2018-05-30] MEDS: Gabapentin 300 MG Capsule PO ×2 (08:22→16:59)
[2018-05-30 11:30] VITALS: O2SAT 96
[2018-05-30 15:27] VITALS: BP 124/68; PULSE 76; RESP 20; TEMP 36.8; O2SAT 98
[2018-05-30] MEDS: Aspirin E.C. 81 MG Tablet PO (20:12)
[2018-05-30 22:56] VITALS: PULSE 84; RESP 18; O2SAT 92
[2018-05-31] MEDS: Acetaminophen 500 MG Tablet 1000 MG PO (00:41)
[2018-05-31] MEDS: oxyCODONE 5 MG Tablet PO ×3 (06:29→20:30)
[2018-05-31] MEDS: Lisinopril 2.5 MG Tablet PO (06:31)
[2018-05-31] MEDS: Levothyroxine 100 MCG Tablet PO (06:31)
[2018-05-31] MEDS: Senna/Docusate Sodium 1 Tablet PO ×2 (06:31→18:52)
[2018-05-31] MEDS: Pantoprazole Sodium 20 MG Tablet PO (06:31)
[2018-05-31] MEDS: Ascorbic Acid 500 MG Tablet 250 MG PO (06:31)
[2018-05-31] MEDS: Furosemide 40 MG Tablet PO (06:31)
[2018-05-31] MEDS: Polyethylene Glycol 3350 17 GM PACKET PO (06:36)
[2018-05-31] MEDS: Menthol/Lanolin/Calamine/Znox 113 GM Tube 1 APPLIC TOPICAL ×2 (06:44→20:43)
[2018-05-31] MEDS: Nystatin Powder 15gm Bottle 1 APPLIC TOPICAL ×2 (06:44→20:43)
[2018-05-31 08:45] VITALS: O2SAT 91
[2018-05-31] MEDS: Gabapentin 300 MG Capsule PO ×2 (08:53→18:51)
[2018-05-31] MEDS: Multivitamins,Ther W-Minerals Tablet 1 TABLET PO (08:53)
[2018-05-31] MEDS: Ondansetron ODT 4 MG Tablet PO ×2 (08:58→18:50)
--- NOTE | 2018-05-31 11:07 | CASEMGMT ---
Addendum entered by Jayda Wallis 05/31/18 11:13: Explored options of PASSPORT services, resident declining at this time. Original Note: Plan of care meeting held. Resident present as well as resident family. No discharge date set at this time. Resident plans to continue with further care and treatment on the Transitional Care Unit. Resident plans to discharge home alone at time of discharge. Support given. Will continue to follow. Jayda YOO, HOME CARE GIVER
[2018-05-31 15:54] VITALS: BP 93/63; PULSE 66; RESP 18; TEMP 36.3; O2SAT 98
[2018-05-31] MEDS: Aspirin E.C. 81 MG Tablet PO (20:22)
[2018-06-01] MEDS: oxyCODONE 5 MG Tablet PO ×4 (03:03→21:52)
[2018-06-01] MEDS: Polyethylene Glycol 3350 17 GM PACKET PO (05:31)
[2018-06-01] MEDS: Levothyroxine 100 MCG Tablet PO (05:32)
[2018-06-01] MEDS: Pantoprazole Sodium 20 MG Tablet PO (05:32)
[2018-06-01] MEDS: Furosemide 40 MG Tablet PO (05:32)
[2018-06-01] MEDS: Ascorbic Acid 500 MG Tablet 250 MG PO (05:32)
[2018-06-01] MEDS: Senna/Docusate Sodium 1 Tablet PO ×2 (05:33→17:43)
[2018-06-01] MEDS: Nystatin Powder 15gm Bottle 1 APPLIC TOPICAL ×2 (05:33→20:05)
[2018-06-01] MEDS: Menthol/Lanolin/Calamine/Znox 113 GM Tube 1 APPLIC TOPICAL ×2 (05:34→20:03)
[2018-06-01] MEDS: Lisinopril 2.5 MG Tablet PO (05:36)
[2018-06-01 06:07] LABS: International Normalized Ratio 1.8; Prothrombin Time (Protime)PT. 20.9 SECONDS (11.7-14.9)
[2018-06-01 07:53] VITALS: O2SAT 98
[2018-06-01] MEDS: Multivitamins,Ther W-Minerals Tablet 1 TABLET PO (09:20)
[2018-06-01] MEDS: Gabapentin 300 MG Capsule PO ×2 (09:21→17:43)
--- NOTE | 2018-06-01 11:36 | NURSING ---
Patient has c/o pressure and frequency. NO for UA C&S.
[2018-06-01 15:33] VITALS: BP 108/69; PULSE 68; RESP 20; TEMP 36.7; O2SAT 92
[2018-06-01] MEDS: Bisacodyl 5 MG Tablet 10 MG PO (15:34)
--- NOTE | 2018-06-01 15:45 | NURSING ---
pt up to bathroom and straining very hard trying to move bowels. conservation or heritage architect asked rn to come in for possible disimpaction of large hard stool obs in rectum but upon return pt had already passed baseball sized hard stool. some blood noted from hemmorhoid irritation as result of. dulcolax tabs given and instructions given. pt in chair and encouraged to call out if feels any cramping or need to go again
[2018-06-01 17:08] LABS: Mucous, Urine 0 SEEN /hpf (<or=2+); Squamous Epithelial Cells - UA 0 SEEN /hpf (5-10)
[2018-06-01 17:19] LABS: Color, Urine Yellow (Yellow); Glucose, Dipstick Normal (Normal); Ketone-Dipstick Negative (Negative); Leukocyte Esterase-Dipstick 500 /ul (Negative); Nitrite-Dipstick Positive (Negative); Occult Blood-Urine 50 /ul (Negative); Protein-Dipstick 30 mg/dl (Negative); Specific Gravity, Urine 1.015 (1.002-1.030); Urine Bilirubin Dipstick Negative (Negative); Urine Clarity Cloudy (Clear); Urine Urobilinogen Normal (Normal)
[2018-06-01 17:27] LABS: Amorphous Sediment 1+; Bacteria 1+ /hpf (None Seen); Red Blood Cells-Urine 0-5 SEEN /hpf (0-5); White Blood Cells 50-100 SEEN /hpf (0-5)
[2018-06-01] MEDS: Aspirin E.C. 81 MG Tablet PO (20:06)
[2018-06-02 06:02] LABS: Absolute Lymphocyte Count 1.66 X10^3/ul (0.83-4.51); Absolute Neutrophil Count 4.1 X10^3/uL (2.0-7.7); Basophil# 0.05 X10^3/uL; Basophil% 0.7 % (0-1); Eosinophil# 0.24 X10^3/uL; Eosinophils% 3.4 % (0-5); Hematocrit 31.1 % (37-47); Hemoglobin 9.4 g/dl (12.0-15.0); Lymphocyte # 1.66 X10^3/ul (4.0); Lymphocyte % 23.7 % (19-41); Mean Corp Hgb Conc 30.2 g/gl (32-36); Mean Corpuscular Hgb 27.5 pg (27.0-32.0); Mean Corpuscular Volume 90.9 fL (81-99); Mean Platelet Vol. 10.3 fl (6.2-12.0); Monocyte# 0.89 X10^3/uL; Monocyte% 12.7 % (0-10); Neutrophil # 4.11 X10^3/uL (2.7-7.7); Neutrophil % 58.9 % (47-70); Platelet Count 240 K/mm3 (150-450); RBC Distribution Width CV 16.4 % (11.6-14.6); Red Blood Count 3.42 M/mm3 (4.2-5.4)
[2018-06-02 06:07] LABS: POSITIVE COUNT NO; POSITIVE DIFFERENTIAL NO; POSITIVE MORPHOLOGY NO
[2018-06-02] MEDS: oxyCODONE 5 MG Tablet PO ×3 (06:18→23:06)
[2018-06-02] MEDS: Menthol/Lanolin/Calamine/Znox 113 GM Tube 1 APPLIC TOPICAL ×2 (06:20→20:43)
[2018-06-02] MEDS: Nystatin Powder 15gm Bottle 1 APPLIC TOPICAL ×2 (06:20→20:43)
[2018-06-02] MEDS: Levothyroxine 100 MCG Tablet PO (06:23)
[2018-06-02] MEDS: Ondansetron ODT 4 MG Tablet PO ×2 (06:25→17:04)
[2018-06-02 06:27] LABS: Anion Gap 6 (5-15); BUN 46 mg/dL (7-18); BUN/Creat Ratio 37.1 RATIO (10-20); Calcium,Total 7.8 mg/dL (8.5-10.1); Chloride 97 mmol/L (98-107); Creatinine, Serum 1.24 mg/dL (0.55-1.02); EST Glomerular Filtration Rate 44 mL/min (>60); Est Glom Filt Rate - Afr Amer 53 mL/min (>60); Estimated Creatinine Clearance 30.73 ml/min; Glucose 81 mg/dL (74-106); Potassium 5.2 mmol/L (3.5-5.1); Sodium Level 135 mmol/L (136-145)
[2018-06-02 06:58] VITALS: O2SAT 98
[2018-06-02 07:00] VITALS: RESP 18; O2SAT 94
--- NOTE | 2018-06-02 07:00 | NURSING ---
Patient confused this am. Refused all 0600 meds except synthroid. Took zofran for nausea. Patient told this nurse I don't take any pills this early except my thyroid pill. This nurse explained that yesterday she took all pills an hour earlier than today. Patient still refused any more meds. This nurse medicated for pain per request and gave thyroid only per request. Patient agreed to assessment and dressing change. Same reported to FAMILIA Brar.
[2018-06-02 08:40] VITALS: BP 95/50; PULSE 62; O2SAT 93
[2018-06-02] MEDS: Furosemide 40 MG Tablet PO (08:48)
[2018-06-02] MEDS: Polyethylene Glycol 3350 17 GM PACKET PO (08:48)
[2018-06-02] MEDS: Pantoprazole Sodium 20 MG Tablet PO (08:48)
[2018-06-02] MEDS: Senna/Docusate Sodium 1 Tablet PO ×2 (08:49→17:06)
[2018-06-02] MEDS: Ascorbic Acid 500 MG Tablet 250 MG PO (08:49)
[2018-06-02] MEDS: Gabapentin 300 MG Capsule PO ×2 (08:50→17:06)
[2018-06-02] MEDS: Multivitamins,Ther W-Minerals Tablet 1 TABLET PO (08:50)
[2018-06-02] MEDS: Tuberculin,Purif.prot.deriv. 50 TU/ML Vial 5 ML ID (10:05)
[2018-06-02] MEDS: Ciprofloxacin 250 MG Tablet PO ×2 (11:46→17:06)
[2018-06-02] MEDS: Sodium Polystyrene Sulfonate 15 GM/60 ML UDC PO (14:27)
[2018-06-02 15:43] VITALS: BP 107/64; PULSE 71; RESP 20; TEMP 36; O2SAT 97
[2018-06-02] MEDS: Aspirin E.C. 81 MG Tablet PO (20:45)
[2018-06-03] MEDS: oxyCODONE 5 MG Tablet PO ×3 (05:12→21:03)
[2018-06-03] MEDS: Menthol/Lanolin/Calamine/Znox 113 GM Tube 1 APPLIC TOPICAL ×2 (05:13→21:04)
[2018-06-03] MEDS: Ascorbic Acid 500 MG Tablet 250 MG PO (05:13)
[2018-06-03] MEDS: Lisinopril 2.5 MG Tablet PO (05:13)
[2018-06-03] MEDS: Levothyroxine 100 MCG Tablet PO (05:14)
[2018-06-03] MEDS: Furosemide 40 MG Tablet PO (05:14)
[2018-06-03] MEDS: Ciprofloxacin 250 MG Tablet PO (05:15)
[2018-06-03] MEDS: Pantoprazole Sodium 20 MG Tablet PO (05:15)
[2018-06-03] MEDS: Senna/Docusate Sodium 1 Tablet PO ×2 (05:15→16:33)
[2018-06-03] MEDS: Nystatin Powder 15gm Bottle 1 APPLIC TOPICAL ×2 (05:15→21:03)
[2018-06-03] MEDS: Polyethylene Glycol 3350 17 GM PACKET PO (05:15)
--- NOTE | 2018-06-03 05:39 | NURSING ---
Pt requesting pain medication several times before it was due earlier in night and very early in morning. When this nurse brought pain medication and gave scheduled am meds, at 0530, pt very confused and argumentative about administration times and certain meds stating she has never before taken them this early and was told they couldn't even be dispensed early, which is what pt was told regarding narcotic pain prn pills. Pt confused and became increasingly upset, mistrusting, and angry with this nurse insisting she has never taken pills this early and if she had it was because she believed they were scheduled in the middle of the night. Pt then asked for bed hernandez. Another staff member was needed to assist pt onto bed hernandez, and returned to room with this nurse, entering first. Pt stated 'that nurse told me I needed the bed hernandez' unaware nurse present in room. Pt was told that was not true, she asked for bed hernandez and was asked again if she needed it and she said I don't know. Okay. Assisted onto bed hernandez. Pt demanding 'medicine cream' to groin which was red and excoriated. When turned to put on bedpan it was noted pt coccyx/buttocks deep red and soft in large circular shape. Pt educated on importance of being off buttocks and turned throughout the night before skin breaks open. Pt argued only her groin was sore and yelled at nurse to put medicine on it. Explained after she was finished and cleaned up it would be applied. Pt refused to allow staff to turn her or get her off buttocks stating 'it doesn't hurt that's not what hurts' and dismissing staff who tried to educate her on this. Pt aware therapy will be in to work with her at 0830 and when a shower was mentioned she yelled oh no I'm not getting in the shower! Pt made aware that groin is red and sore from refusing to shower and she became further agitated and said 'you don't know what you're talking about and you won't put that medicine on me'. Homar and nystatin powder already on, pt denied this. RN aware. Continuing to monitor.
[2018-06-03 07:53] VITALS: O2SAT 97
[2018-06-03 08:30] LABS: Anion Gap 5 (5-15); BUN 48 mg/dL (7-18); BUN/Creat Ratio 37.2 RATIO (10-20); Calcium,Total 7.9 mg/dL (8.5-10.1); Chloride 96 mmol/L (98-107); Creatinine, Serum 1.29 mg/dL (0.55-1.02); EST Glomerular Filtration Rate 42 mL/min (>60); Est Glom Filt Rate - Afr Amer 51 mL/min (>60); Estimated Creatinine Clearance 29.53 ml/min; Glucose 83 mg/dL (74-106); Potassium 4.9 mmol/L (3.5-5.1); Sodium Level 135 mmol/L (136-145)
[2018-06-03] MEDS: Multivitamins,Ther W-Minerals Tablet 1 TABLET PO (09:44)
[2018-06-03] MEDS: Gabapentin 300 MG Capsule PO ×2 (09:44→16:33)
[2018-06-03] MEDS: Acetaminophen 500 MG Tablet 1000 MG PO (09:48)
[2018-06-03] MEDS: Ondansetron ODT 4 MG Tablet PO (09:49)
[2018-06-03] MEDS: Bisacodyl 5 MG Tablet 10 MG PO (13:20)
--- NOTE | 2018-06-03 15:28 | NURSING ---
DR CHANG NOTIFIED OF FINAL WOUND CULTURE RESULTS, WILL REVIEW ORGANISMS FOR TREATMENT
[2018-06-03 15:31] VITALS: BP 102/51; PULSE 52; RESP 20; TEMP 36.9; O2SAT 95
[2018-06-03] MEDS: Amox/Clavulanate 875 MG Tablet PO (16:33)
[2018-06-03] MEDS: Aspirin E.C. 81 MG Tablet PO (21:05)
[2018-06-04] MEDS: Acetaminophen 500 MG Tablet 1000 MG PO (00:16)
--- NOTE | 2018-06-04 01:38 | PCA ---
Res. on bedpan, offered to reposition her, res. stated that she is fine on her back, RN. aware
[2018-06-04] MEDS: oxyCODONE 5 MG Tablet PO ×3 (03:03→21:21)
[2018-06-04] MEDS: Ondansetron ODT 4 MG Tablet PO ×2 (03:04→18:25)
[2018-06-04 06:30] VITALS: O2SAT 95
[2018-06-04] MEDS: Amox/Clavulanate 875 MG Tablet PO ×2 (06:33→17:20)
[2018-06-04] MEDS: Menthol/Lanolin/Calamine/Znox 113 GM Tube 1 APPLIC TOPICAL ×2 (06:34→21:22)
[2018-06-04] MEDS: Nystatin Powder 15gm Bottle 1 APPLIC TOPICAL ×2 (06:34→21:24)
[2018-06-04] MEDS: Levothyroxine 100 MCG Tablet PO (06:35)
[2018-06-04] MEDS: Gabapentin 300 MG Capsule PO ×2 (08:21→17:22)
[2018-06-04] MEDS: Multivitamins,Ther W-Minerals Tablet 1 TABLET PO (08:21)
[2018-06-04 10:00] VITALS: PULSE 58; RESP 18; O2SAT 95
[2018-06-04 15:35] VITALS: BP 100/52; PULSE 97; RESP 22; TEMP 36.3; O2SAT 98
--- NOTE | 2018-06-04 19:08 | EKG12_ITS ---
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 Rate : 068 BPM Atrial Rate : 059 BPM P-R Int : 000 ms QRS Dur : 098 ms QT Int : 362 ms P-R-T Axes : 000 033 012 degrees QTc Int : 384 ms Atrial fibrillation Low voltage QRS (LIMB LEADS) Abnormal ECG Confirmed by JOSIAH RUIZ, MAICOL ([id number]), editor in chief LAURA JAMES ([id number] on 06/07/2018 10:08:05 AM Referred By: SUSHANT/BINDU Confirmed By:MAICOL RAHMAN MD
--- NOTE | 2018-06-04 19:08 | NURSING ---
Pt C/O chest pains and some nausea. vital signs P-72 R-18 BP 119/63 T-98.9 Sp02 93%. Stat EKG ordered. Radha BARBOSA aware
[2018-06-04 19:12] VITALS: BP 119/63; PULSE 72; RESP 18; TEMP 37.2; O2SAT 93
[2018-06-04] MEDS: Aspirin E.C. 81 MG Tablet PO (21:24)
[2018-06-05] MEDS: Senna/Docusate Sodium 1 Tablet PO ×2 (05:08→18:31)
[2018-06-05] MEDS: Ascorbic Acid 500 MG Tablet 250 MG PO (05:08)
[2018-06-05] MEDS: Polyethylene Glycol 3350 17 GM PACKET PO (05:08)
[2018-06-05] MEDS: Nystatin Powder 15gm Bottle 1 APPLIC TOPICAL ×2 (05:08→21:27)
[2018-06-05] MEDS: Furosemide 40 MG Tablet PO (05:08)
[2018-06-05] MEDS: Amox/Clavulanate 875 MG Tablet PO ×2 (05:08→18:31)
[2018-06-05] MEDS: Levothyroxine 100 MCG Tablet PO (05:08)
[2018-06-05] MEDS: Lisinopril 2.5 MG Tablet PO (05:08)
[2018-06-05] MEDS: Pantoprazole Sodium 20 MG Tablet PO (05:08)
[2018-06-05] MEDS: Menthol/Lanolin/Calamine/Znox 113 GM Tube 1 APPLIC TOPICAL ×2 (05:45→21:27)
[2018-06-05] MEDS: oxyCODONE 5 MG Tablet PO ×3 (05:45→23:09)
[2018-06-05 05:50] VITALS: PULSE 60; RESP 16; O2SAT 94
[2018-06-05 06:07] LABS: International Normalized Ratio 2.2; Prothrombin Time (Protime)PT. 24.9 SECONDS (11.7-14.9)
[2018-06-05 06:50] VITALS: O2SAT 97
--- NOTE | 2018-06-05 07:04 | NURSING ---
Patient chose to sleep in recliner all night. She also refused to have her legs elevated. BLE edematous and seeping. Staff offered multiple times to elevate legs and also to change dressings. Patient refused. Will cont to monitor. Patient told this nurse never on night shift supervisor will she allow dressings to be changed. i would rather sleep.
--- NOTE | 2018-06-05 08:34 | NURSING ---
PT IN PRECAUTIONS FOR MRSA IN LEG WOUND.
[2018-06-05] MEDS: Gabapentin 300 MG Capsule PO ×2 (08:42→18:31)
[2018-06-05] MEDS: Multivitamins,Ther W-Minerals Tablet 1 TABLET PO (08:42)
[2018-06-05] MEDS: Ondansetron ODT 4 MG Tablet PO ×2 (09:14→18:31)
--- NOTE | 2018-06-05 10:06 | NURSING ---
Dr. Flor here to see patient regarding positive wound culture.
--- NOTE | 2018-06-05 10:28 | CON.PCM_ITS ---
Problem List (1) Venous stasis ulcer of right lower extremity Status: Chronic Reason for Consult: mrsa Consulted by: Dr. Sweet History of Present Illness: The patient is a 82 year old F with chronic venous stasis transferred to TCU from [place] due to nonhealing RLE ulcer. Reports ulcer present for several weeks with severe pain, heavy clear drainage, some redness, some chills. Wound cx and ucx done here. Augmentin started, leg worsening. Full ROS Performed and neg except as noted above. 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) Vitamin D deficiency (Chronic) Neuropathy (Chronic) 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) Malnutrition (Chronic) Ulcer of right leg (Chronic) Cellulitis of right lower extremity (Chronic) Leg ulcer, left (Chronic) Edema leg (Chronic) Lymphedema of lower extremity (Chronic) Congestive heart failure (Chronic) History of myocardial infarction (Chronic) Incontinence of urine (Chronic) Hypertension (Chronic) Morbid obesity (Chronic) Hypothyroidism (Chronic) Hypercholesterolemia (Chronic) Osteoarthritis (arthritis due to wear and tear of joints) (Chronic) Rheumatoid arthritis (Chronic) Allergies/Adverse Reactions: Allergies No Known Allergies Allergy (Verified 08/01/17 12:37) Home Medications: Ambulatory Orders Medication Instructions Recorded Warfarin [Coumadin] 3 mg PO DAILY 01/17/17 Acetaminophen [Pain Relief Extra 1,000 mg PO Q8H PRN PRN 04/25/17 Strength] Aspirin [Aspir-Low] 81 mg PO QHS 04/25/17 Gabapentin [Neurontin] 300 mg PO BIDCM 04/25/17 Polyethylene Glycol 3350 [Miralax] 17 gm PO PRN PRN 04/25/17 Omeprazole 20 mg PO DAILY 04/26/17 Levothyroxine [Synthroid] 100 mcg PO DAILY@0600 08/01/17 Ascorbic Acid [Vitamin C] 250 mg PO DAILY 05/25/18 Docusate Sodium [Colace] 100 mg PO DAILY PRN PRN 05/25/18 Ergocalciferol [Vitamin D] 50,000 unit PO Q7D 05/25/18 Lisinopril [Zestril] 2.5 mg PO DAILY 05/25/18 Multivitamin with Iron 1 each PO DAILY 05/25/18 [Multivitamins with Iron] Torsemide [Demadex] 20 mg PO DAILY 05/25/18 Vital Signs Temp Pulse Resp BP Pulse Ox 98.9 F 60 16 119/63 97 06/04/18 19:12 06/05/18 05:50 06/05/18 05:50 06/04/18 19:12 06/05/18 06:50 Oxygen Flow Rate (L/min) 2 Oxygen Delivery Method Nasal Cannula Weight: 91.3 kg Body Mass Index (BMI) 35.9 Microbiology Past 72 Hours 05/31/18 13:30 Gram Stain - Final Wound - Leg, Right Wound Culture - Final Burkholderia cepacia Burkholderia cepacia#2 Meth. resistant Staph. aureus Corynebacterium striatum Anaerobic Culture - Final No anaerobic bacteria isolated. 06/01/18 16:45 Urine Culture - Final Urine Catheter - Catheter Proteus mirabilis Laboratory Tests Past 24 Hrs 06/05/18 05:47 PT 24.9 H INR 2.2 - Other Studies Radiology: [] reviewed Other Studies: [] Route of nutrition/ use of supplements: [] Nutritional Intake: [] IV Site: [] Vitale Catheter: [] - Physical Exam General: Alert, Oriented x3, Cooperative, No apparent distress HEENT: Atraumatic, Normocephalic Neck: Supple, No Nodes Lungs: Clear to auscultation, Normal air movement Cardiovascular: Irregular Rate Abdomen: Soft, Non Tender, Non-Distended Extremities: Diminished Peripheral Pulses, Edema Skin: Ulcer/ Wound - RLE large shallow ulcer with mild surrounding erythema Musculoskeletal: No Tenderness to Palpation of Joints or Extremities Neurological: Cranial nerves II-XII grossly intact - Assessment/Plan Antibiotics: [] Assessment/Plan: [] RLE infected ulcer - cx with burkholderia x2, mrsa, and corynebacterium. On augmentin. Will add linezolid and cipro to cover the growth on cxs. proteus complicated uti - covered by augmentin Will follow, thank you.
--- NOTE | 2018-06-05 12:45 | NURSING ---
Physical therapist reported to this nurse that patient has c/o chest pain. Upon assessment, patient a c/o a stabbing, aching pain in the middle of her chest that radiates to her back and is constant and worsening. BP 89/56, 79, 85% on RA, rr 24. Pt has c/o SOB. SEWER PIPE CLEANER called, NRB put on at 15L. With SEWER PIPE CLEANER team present, EKG completed, 18g IV inserted into RFA. Vitals rechecked at 79/50, 45, 86% on 15L and rr 26. Patient transported down to ER by cot. Report given to ER nurse. MAR sent down to ER. Dr. Sweet notified and patient's daughter in law, Asha, made aware.
[2018-06-05 12:51] LABS: Bedside Glucose 116 mg/dL (70-110)
--- NOTE | 2018-06-05 14:50 | CHAPLAIN ---
Type of Pastoral Visit ___ Initial Visit ___ Follow-up Visit ___ On-call Visit ___ General Patient Visit ___ Spiritual Assessment ___ Family Conference ___ Bereavement _x__ Rapid Response ___ Code Blue ___ Other (describe below) Pastoral Care Referral From _x__ Patient ___ Family ___ Nurse ___ Physician ___ Tire And Tube Repairer ___ Consumer Advocate _x__ Other (describe below) Sacrament/Intervention ___ Active listening ___ Anointing ___ Worship ___ Bereavement ___ Communion ___ Cecelia exploration ___ ___ Life review ___ Prayer ___ Reconciliation ___ Sacrament of Sick _x__ Supportive presence ___ Wedding ___ Other (describe below) Pastoral Comments patient was being treated and then was moved to ED; followed her to ED but no family was present; pt continued to be attended to by medical staff; pt was alert
[2018-06-05 16:47] VITALS: BP 115/69; PULSE 80; RESP 24; TEMP 36.2; O2SAT 97
[2018-06-05] MEDS: Ciprofloxacin 500 MG Tablet PO (17:07)
[2018-06-05] MEDS: Linezolid 600 MG Tablet PO (17:12)
--- NOTE | 2018-06-05 17:22 | NURSING ---
PT returned from ER, NNO. BP 115/69, 80, 97.1, 97% 3L, 24. Pt assisted to bed, call light within reach. Dressings intact to bLLE
[2018-06-05] MEDS: Aspirin E.C. 81 MG Tablet PO (21:27)
--- NOTE | 2018-06-05 21:28 | NURSING ---
Pt remains in contact isolation precautions for MRSA in R foot wound. Nursing care provided in room.
--- NOTE | 2018-06-05 22:15 | NURSING ---
Dressings to lower bilateral legs changed per pt request, before pt able to have prn pain medication. Pt upset about this and said she is waiting until 11pm for nurse to bring pain medication back.
[2018-06-06] MEDS: Acetaminophen 500 MG Tablet 1000 MG PO ×3 (02:57→23:11)
[2018-06-06] MEDS: Menthol/Lanolin/Calamine/Znox 113 GM Tube 1 APPLIC TOPICAL ×2 (05:18→21:17)
[2018-06-06] MEDS: Amox/Clavulanate 875 MG Tablet PO ×2 (05:18→17:50)
[2018-06-06] MEDS: Nystatin Powder 15gm Bottle 1 APPLIC TOPICAL ×2 (05:19→21:17)
[2018-06-06] MEDS: Ciprofloxacin 500 MG Tablet PO ×2 (05:19→17:50)
[2018-06-06] MEDS: Polyethylene Glycol 3350 17 GM PACKET PO (05:19)
[2018-06-06] MEDS: Senna/Docusate Sodium 1 Tablet PO ×2 (05:19→17:50)
[2018-06-06] MEDS: Furosemide 40 MG Tablet PO (05:19)
[2018-06-06] MEDS: Pantoprazole Sodium 20 MG Tablet PO (05:20)
[2018-06-06] MEDS: Levothyroxine 100 MCG Tablet PO (05:20)
[2018-06-06] MEDS: Lisinopril 2.5 MG Tablet PO (05:20)
[2018-06-06] MEDS: Ascorbic Acid 500 MG Tablet 250 MG PO (05:21)
[2018-06-06] MEDS: oxyCODONE 5 MG Tablet PO ×3 (05:22→17:55)
[2018-06-06] MEDS: Linezolid 600 MG Tablet PO ×2 (05:30→17:49)
[2018-06-06 07:20] VITALS: O2SAT 98
[2018-06-06] MEDS: Gabapentin 300 MG Capsule PO ×2 (08:15→17:50)
[2018-06-06] MEDS: Ondansetron ODT 4 MG Tablet PO ×2 (08:15→16:21)
--- NOTE | 2018-06-06 08:15 | NURSING ---
PT IN PRECAUTIONS FOR MRSA IN LEG WOUND.
[2018-06-06] MEDS: Multivitamins,Ther W-Minerals Tablet 1 TABLET PO (08:16)
--- NOTE | 2018-06-06 14:43 | CHAPLAIN ---
brief stop to see patient after her day with a rapid response; pt said that it is going and I am better than yesterday; family member was with pt and this automotive sales professional offered future support as desired to both
[2018-06-06 16:00] VITALS: BP 106/61; PULSE 92; RESP 18; TEMP 36.3; O2SAT 94
[2018-06-06] MEDS: Bisacodyl 5 MG Tablet 10 MG PO (17:49)
[2018-06-06] MEDS: Aspirin E.C. 81 MG Tablet PO (21:17)
[2018-06-06 21:30] VITALS: PULSE 70; RESP 18; O2SAT 94
[2018-06-07] MEDS: oxyCODONE 5 MG Tablet PO ×4 (00:04→21:25)
[2018-06-07] MEDS: Amox/Clavulanate 875 MG Tablet PO ×2 (06:09→18:36)
[2018-06-07] MEDS: Ciprofloxacin 500 MG Tablet PO ×2 (06:09→18:36)
[2018-06-07] MEDS: Senna/Docusate Sodium 1 Tablet PO ×2 (06:10→18:36)
[2018-06-07] MEDS: Pantoprazole Sodium 20 MG Tablet PO (06:10)
[2018-06-07] MEDS: Polyethylene Glycol 3350 17 GM PACKET PO (06:10)
[2018-06-07] MEDS: Furosemide 40 MG Tablet PO (06:10)
[2018-06-07] MEDS: Ascorbic Acid 500 MG Tablet 250 MG PO (06:10)
[2018-06-07] MEDS: Levothyroxine 100 MCG Tablet PO (06:10)
[2018-06-07] MEDS: Lisinopril 2.5 MG Tablet PO (06:11)
[2018-06-07] MEDS: Linezolid 600 MG Tablet PO ×2 (06:11→18:36)
[2018-06-07] MEDS: Nystatin Powder 15gm Bottle 1 APPLIC TOPICAL ×2 (06:21→21:20)
[2018-06-07] MEDS: Menthol/Lanolin/Calamine/Znox 113 GM Tube 1 APPLIC TOPICAL ×2 (06:21→21:20)
--- NOTE | 2018-06-07 07:16 | NURSING ---
0610: pt am meds gathered and to be administered to pt. after pt took all am medications, pt wanted to transfer to restroom. when pt stood up, this nurse noted that dressing to right leg was falling off. this nurse told pt that this nurse would need to change the dressing this am d/t the dressing coming off and being saturated. this nurse asked pt if she would like a pain pill for her pain and prior to dressing change. pt became agitated with this nurse claiming that this nurse should have brought the pain pill as soon as it was due. this nurse explained to pt that this nurse was unaware of her pain d/t her being asleep in her chair. pt noted with increased agitation. this nurse retrieved pain meds and returned to pt room. this nurse administered pain meds and pt was agitated once again with this nurse. next shift notified, oncoming nurse agreed to complete dressing change d/t pt agitation with this nurse.
[2018-06-07 07:18] VITALS: O2SAT 98
--- NOTE | 2018-06-07 09:16 | MDS.RN ---
Information for the mds was obtained from review of the clinical record, interview of resident, staff, and direct observation of resident's care.
[2018-06-07] MEDS: Gabapentin 300 MG Capsule PO ×2 (09:39→18:36)
[2018-06-07] MEDS: Multivitamins,Ther W-Minerals Tablet 1 TABLET PO (09:39)
[2018-06-07] MEDS: Acetaminophen 500 MG Tablet 1000 MG PO ×2 (10:09→18:35)
[2018-06-07] MEDS: Ondansetron ODT 4 MG Tablet PO (10:10)
[2018-06-07] MEDS: Bisacodyl 5 MG Tablet 10 MG PO (12:54)
--- NOTE | 2018-06-07 14:27 | PCM.PN.ID ---
Subjective: Feeling about the same, no fever, no n/v/d with abx. - Physical Exam General: Alert, Cooperative Lungs: Clear to auscultation, Normal air movement Cardiovascular: Regular rate, Regular Rhythm Abdomen: Soft, Non Tender, Non-Distended Extremities: Edema Skin: Ulcer/ Wound - BLE wrapped Vital Signs Temp Pulse Resp BP Pulse Ox 97.4 F L 70 18 106/61 98 06/06/18 16:00 06/06/18 21:30 06/06/18 21:30 06/06/18 16:00 06/07/18 07:18 Oxygen Flow Rate (L/min) 4 Oxygen Delivery Method Nasal Cannula Weight: 92.675 kg Body Mass Index (BMI) 35.9 Intake and Output for Last 24 Hours 06/05/18 06/06/18 06/07/18 23:59 23:59 23:59 Intake Total 1120 / 1120 900 / 900 720 / 720 Balance 1120 / 1120 900 / 900 720 / 720 Microbiology Past 72 Hours 05/31/18 13:30 Gram Stain - Final Wound - Leg, Right Wound Culture - Final Burkholderia cepacia Burkholderia cepacia#2 Meth. resistant Staph. aureus Corynebacterium striatum Anaerobic Culture - Final No anaerobic bacteria isolated. Medical Necessity - Tobacco Use Smoking Status: Never smoker Tobacco Use: Secondhand Route of nutrition/ use of supplements: [] Nutritional Intake: [] IV Site: [] Vitale Catheter: [] - Assessment/Plan Antibiotics: [] Assessment/Plan: [] RLE infected ulcer - cx with burkholderia x2, mrsa, and corynebacterium. Continue linezolid, augmentin, and cipro. proteus complicated uti - covered by augmentin Will follow
--- NOTE | 2018-06-07 15:23 | NURSING ---
pt remains in contact precautions for MRSA in leg wounds. All nursing care and therapy provided in room. Pt ringing out master control supervisor light multiple times and asking this nurse for pain medications when pain medications were not due. This nurse explained to pt the times the meds were given and when she could receive them again. Pt voiced understanding then would ring out shortly after. Will continue to re-orient and provide education. Pt agitated regarding meds despite staff 1:1.
[2018-06-07 15:36] VITALS: BP 103/63; PULSE 71; RESP 20; TEMP 36.6; O2SAT 90
--- NOTE | 2018-06-07 15:53 | CHAPLAIN ---
Type of Pastoral Visit ___ Initial Visit _x__ Follow-up Visit ___ On-call Visit ___ General Patient Visit ___ Spiritual Assessment ___ Family Conference ___ Bereavement ___ Rapid Response ___ Code Blue ___ Other (describe below) Pastoral Care Referral From _x__ Patient ___ Family ___ Nurse ___ Physician ___ Meat Packer ___ Bonding Agent ___ Other (describe below) Sacrament/Intervention _x__ Active listening ___ Anointing ___ Congregation ___ Bereavement ___ Communion _x__ Cecelia exploration ___ _x__ Life review _x__ Prayer ___ Reconciliation ___ Sacrament of Sick _x__ Supportive presence ___ Wedding ___ Other (describe below) Pastoral Comments
--- NOTE | 2018-06-07 18:54 | NURSING ---
saline lock removed from RT FA, redness noted, leaking with flushing. DSD applied.
[2018-06-07 21:25] VITALS: PULSE 62; RESP 16; O2SAT 92
[2018-06-07] MEDS: Aspirin E.C. 81 MG Tablet PO (21:25)
[2018-06-08] MEDS: Ciprofloxacin 500 MG Tablet PO ×2 (05:45→17:54)
[2018-06-08] MEDS: Linezolid 600 MG Tablet PO ×2 (05:45→17:54)
[2018-06-08] MEDS: Polyethylene Glycol 3350 17 GM PACKET PO (05:45)
[2018-06-08] MEDS: Menthol/Lanolin/Calamine/Znox 113 GM Tube 1 APPLIC TOPICAL ×2 (05:45→21:52)
[2018-06-08] MEDS: Ascorbic Acid 500 MG Tablet 250 MG PO (05:45)
[2018-06-08] MEDS: Senna/Docusate Sodium 1 Tablet PO ×2 (05:46→17:54)
[2018-06-08] MEDS: Lisinopril 2.5 MG Tablet PO (05:46)
[2018-06-08] MEDS: Pantoprazole Sodium 20 MG Tablet PO (05:46)
[2018-06-08] MEDS: Furosemide 40 MG Tablet PO (05:46)
[2018-06-08] MEDS: Amox/Clavulanate 875 MG Tablet PO ×2 (05:46→17:54)
[2018-06-08] MEDS: Levothyroxine 100 MCG Tablet PO (05:46)
[2018-06-08] MEDS: Nystatin Powder 15gm Bottle 1 APPLIC TOPICAL ×2 (06:06→21:52)
[2018-06-08] MEDS: oxyCODONE 5 MG Tablet PO ×2 (06:08→11:44)
[2018-06-08 06:32] LABS: Prothrombin Time (Protime)PT. 30.9 SECONDS (11.7-14.9)
[2018-06-08 07:06] VITALS: O2SAT 97
[2018-06-08] MEDS: Multivitamins,Ther W-Minerals Tablet 1 TABLET PO (08:10)
[2018-06-08] MEDS: Gabapentin 300 MG Capsule PO ×2 (08:10→17:54)
[2018-06-08 15:21] VITALS: BP 104/68; PULSE 85; RESP 14; TEMP 37.2; O2SAT 90
--- NOTE | 2018-06-08 16:24 | CASEMGMT ---
Brief interview for mental status (BIMS) and resident mood interview (PHQ-9) completed on this day. BIMS score 06/14. PHQ-9 score 03/26
[2018-06-08 21:50] VITALS: PULSE 62; RESP 14; O2SAT 88
--- NOTE | 2018-06-08 22:03 | NURSING ---
Addendum entered by Trena Yuen 06/08/18 22:06: also crackles noted throughout, reported to Dr Sweet. Original Note: Pt on 6L O2 sat at 89%, pulse ox ranging from 78% to 89%. pt very lethargic this evening as well. Pt also will seeping BLE with +[address] Sweet notified of above.
--- NOTE | 2018-06-08 22:06 | RAD_ITS ---
STUDY: X-RAY CHEST REASON FOR EXAM: Female, 82 years old. Shortness of breath TECHNIQUE: Frontal view of the chest COMPARISON: 06/05/2018 FINDINGS: There are stable mild emphysematous changes noted in the lungs. There are stable chronically increased interstitial markings. There are minimal congestive changes which are decreased when compared with the prior exam. There are no focal infiltrates. There are no pleural effusions. There is no pneumothorax. The heart is enlarged, but stable. There are degenerative changes noted in the shoulders. RAD/Chest 1 View (Portable) IMPRESSION: Interval pulmonary vascular congestion which is decreased when compared with the prior exam. Electronically Signed: Javier Serrano, at 23:11 EDT Tel , Service support ,
[2018-06-08 22:49] LABS: Bacteria 0 SEEN /hpf (None Seen); Mucous, Urine 0 SEEN /hpf (<or=2+); Red Blood Cells-Urine 0 SEEN /hpf (0-5); Squamous Epithelial Cells - UA 0 SEEN /hpf (5-10); White Blood Cells 0 SEEN /hpf (0-5)
[2018-06-08 22:51] LABS: Color, Urine Yellow (Yellow); Glucose, Dipstick Normal (Normal); Ketone-Dipstick 5 mg/dl (Negative); Leukocyte Esterase-Dipstick 25 /ul (Negative); Nitrite-Dipstick Negative (Negative); Occult Blood-Urine Negative /ul (Negative); Protein-Dipstick 15 mg/dl (Negative); Specific Gravity, Urine 1.015 (1.002-1.030); Urine Bilirubin Dipstick Negative (Negative); Urine Clarity Clear (Clear); Urine Urobilinogen Normal (Normal)
--- NOTE | 2018-06-08 22:55 | RAD_ITS ---
STUDY: X-RAY - ABDOMEN/PELVIS REASON FOR EXAM: Female, 82 years old. Pain TECHNIQUE: 2 frontal views of the abdomen. COMPARISON: None. FINDINGS: There is no bowel obstruction. There is a large amount of stool in the colon, consistent with constipation. There are surgical clips noted in the upper abdomen. There are degenerative changes noted in the spine. RAD/Abdomen Single View (Portable) IMPRESSION: No bowel obstruction. The patient. Electronically Signed: Javier Serrano, at 23:13 EDT Tel , Service support ,
[2018-06-08 23:30] LABS: Absolute Lymphocyte Count 2.03 X10^3/ul (0.83-4.51); Absolute Neutrophil Count 4.4 X10^3/uL (2.0-7.7); Basophil# 0.03 X10^3/uL; Basophil% 0.4 % (0-1); Eosinophil# 0.31 X10^3/uL; Hematocrit 34.6 % (37-47); Hemoglobin 10.5 g/dl (12.0-15.0); Lymphocyte # 2.03 X10^3/ul (4.0); Lymphocyte % 26.3 % (19-41); Mean Corp Hgb Conc 30.3 g/gl (32-36); Mean Corpuscular Hgb 27.5 pg (27.0-32.0); Mean Corpuscular Volume 90.6 fL (81-99); Mean Platelet Vol. 10.4 fl (6.2-12.0); Monocyte# 0.87 X10^3/uL; Monocyte% 11.3 % (0-10); Neutrophil # 4.44 X10^3/uL (2.7-7.7); Neutrophil % 57.5 % (47-70); Platelet Count 322 K/mm3 (150-450); RBC Distribution Width CV 16.3 % (11.6-14.6); RBC Distribution Width SD 52.1 fl (35.1-43.9); Red Blood Count 3.82 M/mm3 (4.2-5.4); White Blood Count 7.7 K/mm3 (4.4-11.0)
[2018-06-08 23:38] LABS: Anion Gap 5 (5-15); BUN 79 mg/dL (7-18); BUN/Creat Ratio 27.5 RATIO (10-20); Calcium,Total 8.5 mg/dL (8.5-10.1); Chloride 95 mmol/L (98-107); Creatinine, Serum 2.87 mg/dL (0.55-1.02); EST Glomerular Filtration Rate 17 mL/min (>60); Est Glom Filt Rate - Afr Amer 20 mL/min (>60); Estimated Creatinine Clearance 13.28 ml/min; Glucose 91 mg/dL (74-106); Potassium 5.6 mmol/L (3.5-5.1); Sodium Level 130 mmol/L (136-145)
[2018-06-08 23:39] LABS: POSITIVE COUNT NO; POSITIVE DIFFERENTIAL NO; POSITIVE MORPHOLOGY NO
[2018-06-09 00:25] VITALS: PULSE 92; RESP 14; O2SAT 94
[2018-06-09] MEDS: Ipratropium/Albuterol Sulfate 3 ML AMPUL.NEB INHALATION (00:25)
[2018-06-09] MEDS: oxyCODONE 5 MG Tablet PO (00:29)
[2018-06-09] MEDS: MethylPREDNISolone 125 MG/2 ML Vial IV (01:13)
--- NOTE | 2018-06-09 01:15 | NURSING ---
Dr Sweet updated on BMP results. N.O. to not give 80mg IV Lasix, DC daily PO Lasix, give x1 bolus NS 500cc, and rechecked BMP in morning. Will continue to monitor and assess.
[2018-06-09] MEDS: Acetaminophen 500 MG Tablet 1000 MG PO (01:39)
[2018-06-09] MEDS: 0.9% NaCl Peripheral Flush Adult/Peds IV (02:08)
[2018-06-09 05:45] LABS: Absolute Lymphocyte Count 0.89 X10^3/ul (0.83-4.51); Absolute Neutrophil Count 7.2 X10^3/uL (2.0-7.7); Basophil# 0.01 X10^3/uL; Basophil% 0.1 % (0-1); Eosinophil# 0.04 X10^3/uL; Eosinophils% 0.5 % (0-5); Hematocrit 32.1 % (37-47); Hemoglobin 9.6 g/dl (12.0-15.0); Lymphocyte # 0.89 X10^3/ul (4.0); Lymphocyte % 10.7 % (19-41); Mean Corp Hgb Conc 29.9 g/gl (32-36); Mean Corpuscular Hgb 26.8 pg (27.0-32.0); Mean Corpuscular Volume 89.7 fL (81-99); Mean Platelet Vol. 9.9 fl (6.2-12.0); Monocyte# 0.12 X10^3/uL; Monocyte% 1.4 % (0-10); Neutrophil # 7.23 X10^3/uL (2.7-7.7); Neutrophil % 87.2 % (47-70); Platelet Count 273 K/mm3 (150-450); RBC Distribution Width SD 51.7 fl (35.1-43.9); Red Blood Count 3.58 M/mm3 (4.2-5.4); White Blood Count 8.3 K/mm3 (4.4-11.0)
[2018-06-09 05:53] LABS: POSITIVE COUNT NO; POSITIVE DIFFERENTIAL NO; POSITIVE MORPHOLOGY NO
[2018-06-09] MEDS: Amox/Clavulanate 875 MG Tablet PO (06:03)
[2018-06-09] MEDS: Ciprofloxacin 500 MG Tablet PO (06:03)
[2018-06-09] MEDS: Menthol/Lanolin/Calamine/Znox 113 GM Tube 1 APPLIC TOPICAL ×2 (06:03→21:05)
[2018-06-09] MEDS: Polyethylene Glycol 3350 17 GM PACKET PO (06:03)
[2018-06-09] MEDS: Ascorbic Acid 500 MG Tablet 250 MG PO (06:04)
[2018-06-09] MEDS: Senna/Docusate Sodium 1 Tablet PO (06:04)
[2018-06-09] MEDS: Levothyroxine 100 MCG Tablet PO (06:04)
[2018-06-09] MEDS: Pantoprazole Sodium 20 MG Tablet PO (06:04)
[2018-06-09] MEDS: Linezolid 600 MG Tablet PO (06:05)
[2018-06-09] MEDS: Lisinopril 2.5 MG Tablet PO (06:05)
[2018-06-09] MEDS: Nystatin Powder 15gm Bottle 1 APPLIC TOPICAL ×2 (06:08→21:06)
[2018-06-09 06:22] LABS: Anion Gap 8 (5-15); BUN 78 mg/dL (7-18); BUN/Creat Ratio 31.6 RATIO (10-20); Calcium,Total 8.1 mg/dL (8.5-10.1); Chloride 97 mmol/L (98-107); Creatinine, Serum 2.47 mg/dL (0.55-1.02); EST Glomerular Filtration Rate 20 mL/min (>60); Est Glom Filt Rate - Afr Amer 24 mL/min (>60); Estimated Creatinine Clearance 15.43 ml/min; Glucose 124 mg/dL (74-106); Potassium 5.9 mmol/L (3.5-5.1); Sodium Level 132 mmol/L (136-145)
--- NOTE | 2018-06-09 08:26 | PCM.TCUNOT ---
Subjective: Resident not doing well in middle of night, hypoxic. Labwork showed acute on chronic kidney injury. Resident is alert and oriented, has some nausea. She is short of breath, but that is chronic, lymphedema is also chronic. Vitals/I&O's: Vital Signs Temp Pulse Resp BP Pulse Ox 98.9 F 92 14 104/68 94 06/08/18 15:21 06/09/18 00:25 06/09/18 00:25 06/08/18 15:21 06/09/18 00:25 Oxygen Flow Rate (L/min) 5 Oxygen Delivery Method Nasal Cannula Weight: 92.675 kg Body Mass Index (BMI) 35.9 Intake and Output for Last 24 Hours 06/07/18 06/08/18 06/09/18 23:59 23:59 23:59 Intake Total 1200 / 1200 920 / 920 240 / 240 Balance 1200 / 1200 920 / 920 240 / 240 Laboratory Results 06/08/18 22:40: Urine Color Yellow, Urine Clarity Clear, Urine pH 5.0, Ur Specific [place] 1.015, Urine Protein 15 H, Urine Glucose (UA) Normal, Urine Ketones 5 H, Urine Occult Blood Negative, Urine Nitrite Negative, Urine Bilirubin Negative, Urine Urobilinogen Normal, Ur Leukocyte Esterase 25 H, Urine RBC 0 SEEN, Urine WBC 0 SEEN, Ur Squamous Epith Cells 0 SEEN, Urine Bacteria 0 SEEN, Urine Mucus 0 SEEN 06/08/18 22:46: WBC 7.7, RBC 3.82 L, Hgb 10.5 L, Hct 34.6 L, MCV 90.6, MCH 27.5, MCHC 30.3 L, RDW 16.3 H, RDW Differential 52.1 H, Plt Count 322, MPV 10.4, Immature Gran % (Auto) 0.500, Neut % (Auto) 57.5, Lymph % (Auto) 26.3, [place] % (Auto) 11.3 H, Eos % (Auto) 4.0, Baso % (Auto) 0.4, Absolute Neuts (auto) 4.4, Absolute Lymphs (auto) 2.03, Total Counted Not Reportable 06/08/18 22:46: Sodium 130 L, Potassium 5.6 H, Chloride 95 L, Carbon Dioxide 30.0, Anion Gap 5, BUN 79 H, Creatinine 2.87 H, Estim Creat Clear Calc 13.28, Est GFR (MDRD) Af Amer 20 L, Est GFR (MDRD) Non-Af 17 L, BUN/Creatinine Ratio 27.5 H, Glucose 91, Calcium 8.5 06/09/18 05:15: WBC 8.3, RBC 3.58 L, Hgb 9.6 L, Hct 32.1 L, MCV 89.7, MCH 26.8 L, MCHC 29.9 L, RDW 16.0 H, RDW Differential 51.7 H, Plt Count 273, MPV 9.9, Immature Gran % (Auto) 0.100, Neut % (Auto) 87.2 H, Lymph % (Auto) 10.7 L, [place] % (Auto) 1.4, Eos % (Auto) 0.5, Baso % (Auto) 0.1, Absolute Neuts (auto) 7.2, Absolute Lymphs (auto) 0.89, Total Counted Not Reportable 06/09/18 05:15: Sodium 132 L, Potassium 5.9 H, Chloride 97 L, Carbon Dioxide 27.0, Anion Gap 8, BUN 78 H, Creatinine 2.47 H, Estim Creat Clear Calc 15.43, Est GFR (MDRD) Af Amer 24 L, Est GFR (MDRD) Non-Af 20 L, BUN/Creatinine Ratio 31.6 H, Glucose 124 H, Calcium 8.1 L 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) Vitamin D deficiency (Chronic) Neuropathy (Chronic) 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) Malnutrition (Chronic) Ulcer of right leg (Chronic) Cellulitis of right lower extremity (Chronic) Leg ulcer, left (Chronic) Edema leg (Chronic) Lymphedema of lower extremity (Chronic) Congestive heart failure (Chronic) History of myocardial infarction (Chronic) Incontinence of urine (Chronic) Hypertension (Chronic) Morbid obesity (Chronic) Hypothyroidism (Chronic) Hypercholesterolemia (Chronic) Osteoarthritis (arthritis due to wear and tear of joints) (Chronic) Rheumatoid arthritis (Chronic) Allergies No Known Allergies Allergy (Verified 06/05/18 13:06) Home Medications: Ambulatory Orders Medication Instructions Recorded Acetaminophen [Pain Relief Extra 1,000 mg PO Q8H PRN PRN 04/25/17 Strength] Aspirin [Aspir-Low] 81 mg PO QHS 04/25/17 Gabapentin [Neurontin] 300 mg PO BIDCM 04/25/17 Levothyroxine [Synthroid] 100 mcg PO DAILY@0600 08/01/17 Ascorbic Acid [Vitamin C] 250 mg PO DAILY 05/25/18 Ergocalciferol [Vitamin D] 50,000 unit PO Q7D 05/25/18 Lisinopril [Zestril] 2.5 mg PO DAILY 05/25/18 Amoxicillin/Potassium Clav [Amox 1 each PO BID 06/05/18 Tr-K Clv 875-125 mg Tab] Argin/Glut/Cahmb/Collag/Mv-Min 1 each PO BIDCM 06/05/18 [Carlo Packet] Bisacodyl [Dulcolax] 5 mg PO DAILY 06/05/18 Ciprofloxacin [Cipro] 500 mg PO BID 06/05/18 Docosonal [Abreva] 1 applicatio TOPICAL 5X/DAY 06/05/18 Emollient Combination No.72 1 applicatio TP BID 06/05/18 [Eucerin Intensive Repair] Furosemide [Lasix] 40 mg PO DAILY 06/05/18 Linezolid 600 mg PO BID 06/05/18 Menthol/Lanolin/Calamine/Znox 1 applic TOPICAL BID 06/05/18 [Calmoseptine Ointment] Multivit-Min/Iron Fum/Folic AC 1 tab PO DAILY 06/05/18 [Rzgyv-Falhwlq-Tfwobdsl Tablet] Nystatin Powder [Mycostatin Powder] 1 applic TOPICAL BID 06/05/18 Ondansetron [Zofran Odt] 4 mg PO Q8H PRN PRN 06/05/18 Oxycodone [Oxyir] 5 mg PO Q6H PRN PRN 06/05/18 Pantoprazole Sodium [Protonix] 20 mg PO DAILY 06/05/18 Peg 400/Hypromellose/Glycerin 1 drop EACH EYE Q1H PRN 06/05/18 [Artificial Tears Drops] Polyethylene Glycol 3350 [Miralax] 17 gm PO DAILY 06/05/18 Sennosides/Docusate Sodium 1 tab PO BID 06/05/18 [Senna-Docusate Sodium Tablet] Warfarin Sodium 3 mg PO SUTUTHSA 06/05/18 Warfarin Sodium [Coumadin] 4 mg PO MOWEFR 06/05/18 Surgical History: herniorrhaphy, hysterectomy, total knee arthroplasty - Bilateral., tonsillectomy, - - Cardiac stents x 2, gastric bypass surgery, right ankle ORIF. 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 The patient's mother at the age of 90 with a history of arthritis. Paternal History Items: Heart Disease Review of Systems Constitutional: Denies: Chills, Fever, Weight Change HEENT: Denies: Head Aches, Sinus Congestion, Sinus Drainage Cardiovascular: Denies: Chest Pain, Palpitations Respiratory: Reports: Shortness of Breath, Shortness of breath at rest. Denies: Cough, Sputum production Gastrointestinal: Reports: Constipation, Nausea. Denies: Abdominal Pain, Vomiting Genitourinary: Denies: Dysuria Musculoskeletal: Denies: Joint Pain, Joint Tenderness Skin: Denies: Rash, Wounds Neurological: Denies: Numbness, Tingling, Focal weakness Psychiatric: Denies: Anxiety, Depression, Homicidal Ideations, Suicidal Ideations Hematologic/ Lymphatic: Denies: Easy Bruising, Easy Bleeding - Physical Exam General: Alert, Oriented x3, Cooperative HEENT: Atraumatic, PERRLA, EOMI, Normocephalic Neck: Supple, No JVD, Negative Carotid Bruits Lungs: Normal air movement, Rales - Left mid to lower lung crackles. Cardiovascular: Regular rate, No murmurs Abdomen: Bowel Sounds Present, Soft, Non Tender Extremities: No edema, Capillary Refill Less than 3 Seconds Skin: No rashes, No breakdown Musculoskeletal: No Tenderness to Palpation of Joints or Extremities Neurological: Cranial nerves II-XII grossly intact Psych/Mental Status: Normal Affect, Appropriate Vital Signs Temp Pulse Resp BP Pulse Ox 98.9 F 92 14 104/68 94 06/08/18 15:21 06/09/18 00:25 06/09/18 00:25 06/08/18 15:21 06/09/18 00:25 Oxygen Flow Rate (L/min) 5 Oxygen Delivery Method Nasal Cannula Weight: 92.675 kg Body Mass Index (BMI) 35.9 Intake and Output for Last 24 Hours 06/07/18 06/08/18 06/09/18 23:59 23:59 23:59 Intake Total 1200 / 1200 920 / 920 240 / 240 Balance 1200 / 1200 920 / 920 240 / 240 Laboratory Tests Past 24 Hrs 06/08/18 06/08/18 06/08/18 22:40 22:46 22:46 WBC 7.7 RBC 3.82 L Hgb 10.5 L Hct 34.6 L MCV 90.6 MCH 27.5 MCHC 30.3 L RDW 16.3 H RDW Differential 52.1 H Plt Count 322 MPV 10.4 Immature Gran % (Auto) 0.500 Neut % (Auto) 57.5 Lymph % (Auto) 26.3 [place] % (Auto) 11.3 H Eos % (Auto) 4.0 Baso % (Auto) 0.4 Absolute Neuts (auto) 4.4 Absolute Lymphs (auto) 2.03 Total Counted Not Reportable Sodium 130 L Potassium 5.6 H Chloride 95 L Carbon Dioxide 30.0 Anion Gap 5 BUN 79 H Creatinine 2.87 H Estim Creat Clear Calc 13.28 Est GFR (MDRD) Af Amer 20 L Est GFR (MDRD) Non-Af 17 L BUN/Creatinine Ratio 27.5 H Glucose 91 Calcium 8.5 Urine Color Yellow Urine Clarity Clear Urine pH 5.0 Ur Specific [place] 1.015 Urine Protein 15 H Urine Glucose (UA) Normal Urine Ketones 5 H Urine Occult Blood Negative Urine Nitrite Negative Urine Bilirubin Negative Urine Urobilinogen Normal Ur Leukocyte Esterase 25 H Urine RBC 0 SEEN Urine WBC 0 SEEN Ur Squamous Epith Cells 0 SEEN Urine Bacteria 0 SEEN Urine Mucus 0 SEEN 06/09/18 06/09/18 05:15 05:15 WBC 8.3 RBC 3.58 L Hgb 9.6 L Hct 32.1 L MCV 89.7 MCH 26.8 L MCHC 29.9 L RDW 16.0 H RDW Differential 51.7 H Plt Count 273 MPV 9.9 Immature Gran % (Auto) 0.100 Neut % (Auto) 87.2 H Lymph % (Auto) 10.7 L [place] % (Auto) 1.4 Eos % (Auto) 0.5 Baso % (Auto) 0.1 Absolute Neuts (auto) 7.2 Absolute Lymphs (auto) 0.89 Total Counted Not Reportable Sodium 132 L Potassium 5.9 H Chloride 97 L Carbon Dioxide 27.0 Anion Gap 8 BUN 78 H Creatinine 2.47 H Estim Creat Clear Calc 15.43 Est GFR (MDRD) Af Amer 24 L Est GFR (MDRD) Non-Af 20 L BUN/Creatinine Ratio 31.6 H Glucose 124 H Calcium 8.1 L Urine Color Urine Clarity Urine pH Ur Specific [place] Urine Protein Urine Glucose (UA) Urine Ketones Urine Occult Blood Urine Nitrite Urine Bilirubin Urine Urobilinogen Ur Leukocyte Esterase Urine RBC Urine WBC Ur Squamous Epith Cells Urine Bacteria Urine Mucus Assessment/Plan All Active Problems Right tibial fracture (Resolved) Cellulitis of the legs (Acute) 82 year old female with below past medical history hospitalized for non-healing right lower extremity venous stasis ulcer, admitted to TCU with debility, here for rehabilitation, strengthening, wound care, prior to discharge home. Acute on chronic kidney injury - Cr bumped from 1.29 to 2.87 over 5 days, NS 500ML IV bolus given, now 60ML/HR, Cr improved to 2.47 today. Will stop all antibiotics. Dehydration - Continue IV fluids, and BMP tomorrow AM. Hyperkalemia - K 5.9, Kayexalate 30GM PO x 1 dose, BMP in AM. P. Mirabilis UTI - UA improved, stop Augmentin. Multi-microbial wound infection - Appreciate Dr. Flor input, but I think combination of antibiotics worsening kidney function, stop Cipro, stop Linezolid. Constipation - Already on Miralax 17GM daily, Senna/colace 1 tablet BID, Rx Golytely 2 Liters PO x 1 dose. Polypharmacy - Stop Augmentin, Vitamin C, Cipro, D2, Gabapentin, Duoneb, Linezolid, Lisinopril, MVI, Carlo, Oxycodone. Coronary Artery Disease - Aspirin 81MG daily. Dry Eye - Natural tears. Skin irritation - Eucerin, Calmoseptine. Hypothyroidism - Levothyroxine 100MCG daily. Tinea Corporis - Nystatin powder. Nausea - Zofran 4MG Q8H PRN. GERD - Pantoprazole 20MG daily. Atrial Fibrillation - Warfarin 3MG daily, check INR today.
--- NOTE | 2018-06-09 08:35 | PN_ITS ---
Subjective: Resident not doing well in middle of night, hypoxic. Labwork showed acute on chronic kidney injury. Resident is alert and oriented, has some nausea. She is short of breath, but that is chronic, lymphedema is also chronic. Vitals/I&O's: Vital Signs Temp Pulse Resp BP Pulse Ox 98.9 F 92 14 104/68 94 06/08/18 15:21 06/09/18 00:25 06/09/18 00:25 06/08/18 15:21 06/09/18 00:25 Oxygen Flow Rate (L/min) 5 Oxygen Delivery Method Nasal Cannula Weight: 92.675 kg Body Mass Index (BMI) 35.9 Intake and Output for Last 24 Hours 06/07/18 06/08/18 06/09/18 23:59 23:59 23:59 Intake Total 1200 / 1200 920 / 920 240 / 240 Balance 1200 / 1200 920 / 920 240 / 240 Laboratory Results 06/08/18 22:40: Urine Color Yellow, Urine Clarity Clear, Urine pH 5.0, Ur Specific [place] 1.015, Urine Protein 15 H, Urine Glucose (UA) Normal, Urine Ketones 5 H, Urine Occult Blood Negative, Urine Nitrite Negative, Urine Bilirubin Negative, Urine Urobilinogen Normal, Ur Leukocyte Esterase 25 H, Urine RBC 0 SEEN, Urine WBC 0 SEEN, Ur Squamous Epith Cells 0 SEEN, Urine Bacteria 0 SEEN, Urine Mucus 0 SEEN 06/08/18 22:46: WBC 7.7, RBC 3.82 L, Hgb 10.5 L, Hct 34.6 L, MCV 90.6, MCH 27.5 , MCHC 30.3 L, RDW 16.3 H, RDW Differential 52.1 H, Plt Count 322, MPV 10.4, Immature Gran % (Auto) 0.500, Neut % (Auto) 57.5, Lymph % (Auto) 26.3, [place] % ( Auto) 11.3 H, Eos % (Auto) 4.0, Baso % (Auto) 0.4, Absolute Neuts (auto) 4.4, Absolute Lymphs (auto) 2.03, Total Counted Not Reportable 06/08/18 22:46: Sodium 130 L, Potassium 5.6 H, Chloride 95 L, Carbon Dioxide 30.0, Anion Gap 5, BUN 79 H, Creatinine 2.87 H, Estim Creat Clear Calc 13.28, Est GFR (MDRD) Af Amer 20 L, Est GFR (MDRD) Non-Af 17 L, BUN/Creatinine Ratio 27.5 H, Glucose 91, Calcium 8.5 06/09/18 05:15: WBC 8.3, RBC 3.58 L, Hgb 9.6 L, Hct 32.1 L, MCV 89.7, MCH 26.8 L , MCHC 29.9 L, RDW 16.0 H, RDW Differential 51.7 H, Plt Count 273, MPV 9.9, Immature Gran % (Auto) 0.100, Neut % (Auto) 87.2 H, Lymph % (Auto) 10.7 L, [place] % (Auto) 1.4, Eos % (Auto) 0.5, Baso % (Auto) 0.1, Absolute Neuts (auto) 7.2, Absolute Lymphs (auto) 0.89, Total Counted Not Reportable 06/09/18 05:15: Sodium 132 L, Potassium 5.9 H, Chloride 97 L, Carbon Dioxide 27.0, Anion Gap 8, BUN 78 H, Creatinine 2.47 H, Estim Creat Clear Calc 15.43, Est GFR (MDRD) Af Amer 24 L, Est GFR (MDRD) Non-Af 20 L, BUN/Creatinine Ratio 31.6 H, Glucose 124 H, Calcium 8.1 L 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) Vitamin D deficiency (Chronic) Neuropathy (Chronic) 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) Malnutrition (Chronic) Ulcer of right leg (Chronic) Cellulitis of right lower extremity (Chronic) Leg ulcer, left (Chronic) Edema leg (Chronic) Lymphedema of lower extremity (Chronic) Congestive heart failure (Chronic) History of myocardial infarction (Chronic) Incontinence of urine (Chronic) Hypertension (Chronic) Morbid obesity (Chronic) Hypothyroidism (Chronic) Hypercholesterolemia (Chronic) Osteoarthritis (arthritis due to wear and tear of joints) (Chronic) Rheumatoid arthritis (Chronic) Allergies No Known Allergies Allergy (Verified 06/05/18 13:06) Home Medications: Ambulatory Orders Medication Instructions Recorded Acetaminophen [Pain Relief Extra 1,000 mg PO Q8H PRN PRN 04/25/17 Strength] Aspirin [Aspir-Low] 81 mg PO QHS 04/25/17 Gabapentin [Neurontin] 300 mg PO BIDCM 04/25/17 Levothyroxine [Synthroid] 100 mcg PO DAILY@0600 08/01/17 Ascorbic Acid [Vitamin C] 250 mg PO DAILY 05/25/18 Ergocalciferol [Vitamin D] 50,000 unit PO Q7D 05/25/18 Lisinopril [Zestril] 2.5 mg PO DAILY 05/25/18 Amoxicillin/Potassium Clav [Amox 1 each PO BID 06/05/18 Tr-K Clv 875-125 mg Tab] Argin/Glut/Cahmb/Collag/Mv-Min 1 each PO BIDCM 06/05/18 [Carlo Packet] Bisacodyl [Dulcolax] 5 mg PO DAILY 06/05/18 Ciprofloxacin [Cipro] 500 mg PO BID 06/05/18 Docosonal [Abreva] 1 applicatio TOPICAL 5X/DAY 06/05/18 Emollient Combination No.72 1 applicatio TP BID 06/05/18 [Eucerin Intensive Repair] Furosemide [Lasix] 40 mg PO DAILY 06/05/18 Linezolid 600 mg PO BID 06/05/18 Menthol/Lanolin/Calamine/Znox 1 applic TOPICAL BID 06/05/18 [Calmoseptine Ointment] Multivit-Min/Iron Fum/Folic AC 1 tab PO DAILY 06/05/18 [Oleun-Mlqykwh-Sjoczhbf Tablet] Nystatin Powder [Mycostatin Powder] 1 applic TOPICAL BID 06/05/18 Ondansetron [Zofran Odt] 4 mg PO Q8H PRN PRN 06/05/18 Oxycodone [Oxyir] 5 mg PO Q6H PRN PRN 06/05/18 Pantoprazole Sodium [Protonix] 20 mg PO DAILY 06/05/18 Peg 400/Hypromellose/Glycerin 1 drop EACH EYE Q1H PRN 06/05/18 [Artificial Tears Drops] Polyethylene Glycol 3350 [Miralax] 17 gm PO DAILY 06/05/18 Sennosides/Docusate Sodium 1 tab PO BID 06/05/18 [Senna-Docusate Sodium Tablet] Warfarin Sodium 3 mg PO SUTUTHSA 06/05/18 Warfarin Sodium [Coumadin] 4 mg PO MOWEFR 06/05/18 Surgical History: herniorrhaphy, hysterectomy, total knee arthroplasty - Bilateral., tonsillectomy, - - Cardiac stents x 2, gastric bypass surgery, right ankle ORIF. 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 The patient's mother at the age of 90 with a history of arthritis. Paternal History Items: Heart Disease Review of Systems Constitutional: Denies: Chills, Fever, Weight Change HEENT: Denies: Head Aches, Sinus Congestion, Sinus Drainage Cardiovascular: Denies: Chest Pain, Palpitations Respiratory: Reports: Shortness of Breath, Shortness of breath at rest. Denies : Cough, Sputum production Gastrointestinal: Reports: Constipation, Nausea. Denies: Abdominal Pain, Vomiting Genitourinary: Denies: Dysuria Musculoskeletal: Denies: Joint Pain, Joint Tenderness Skin: Denies: Rash, Wounds Neurological: Denies: Numbness, Tingling, Focal weakness Psychiatric: Denies: Anxiety, Depression, Homicidal Ideations, Suicidal Ideations Hematologic/ Lymphatic: Denies: Easy Bruising, Easy Bleeding - Physical Exam General: Alert, Oriented x3, Cooperative HEENT: Atraumatic, PERRLA, EOMI, Normocephalic Neck: Supple, No JVD, Negative Carotid Bruits Lungs: Normal air movement, Rales - Left mid to lower lung crackles. Cardiovascular: Regular rate, No murmurs Abdomen: Bowel Sounds Present, Soft, Non Tender Extremities: No edema, Capillary Refill Less than 3 Seconds Skin: No rashes, No breakdown Musculoskeletal: No Tenderness to Palpation of Joints or Extremities Neurological: Cranial nerves II-XII grossly intact Psych/Mental Status: Normal Affect, Appropriate Vital Signs Temp Pulse Resp BP Pulse Ox 98.9 F 92 14 104/68 94 06/08/18 15:21 06/09/18 00:25 06/09/18 00:25 06/08/18 15:21 06/09/18 00:25 Oxygen Flow Rate (L/min) 5 Oxygen Delivery Method Nasal Cannula Weight: 92.675 kg Body Mass Index (BMI) 35.9 Intake and Output for Last 24 Hours 06/07/18 06/08/18 06/09/18 23:59 23:59 23:59 Intake Total 1200 / 1200 920 / 920 240 / 240 Balance 1200 / 1200 920 / 920 240 / 240 Laboratory Tests Past 24 Hrs 06/08/18 06/08/18 06/08/18 22:40 22:46 22:46 WBC 7.7 RBC 3.82 L Hgb 10.5 L Hct 34.6 L MCV 90.6 MCH 27.5 MCHC 30.3 L RDW 16.3 H RDW Differential 52.1 H Plt Count 322 MPV 10.4 Immature Gran % (Auto) 0.500 Neut % (Auto) 57.5 Lymph % (Auto) 26.3 [place] % (Auto) 11.3 H Eos % (Auto) 4.0 Baso % (Auto) 0.4 Absolute Neuts (auto) 4.4 Absolute Lymphs (auto) 2.03 Total Counted Not Reportable Sodium 130 L Potassium 5.6 H Chloride 95 L Carbon Dioxide 30.0 Anion Gap 5 BUN 79 H Creatinine 2.87 H Estim Creat Clear Calc 13.28 Est GFR (MDRD) Af Amer 20 L Est GFR (MDRD) Non-Af 17 L BUN/Creatinine Ratio 27.5 H Glucose 91 Calcium 8.5 Urine Color Yellow Urine Clarity Clear Urine pH 5.0 Ur Specific [place] 1.015 Urine Protein 15 H Urine Glucose (UA) Normal Urine Ketones 5 H Urine Occult Blood Negative Urine Nitrite Negative Urine Bilirubin Negative Urine Urobilinogen Normal Ur Leukocyte Esterase 25 H Urine RBC 0 SEEN Urine WBC 0 SEEN Ur Squamous Epith Cells 0 SEEN Urine Bacteria 0 SEEN Urine Mucus 0 SEEN 06/09/18 06/09/18 05:15 05:15 WBC 8.3 RBC 3.58 L Hgb 9.6 L Hct 32.1 L MCV 89.7 MCH 26.8 L MCHC 29.9 L RDW 16.0 H RDW Differential 51.7 H Plt Count 273 MPV 9.9 Immature Gran % (Auto) 0.100 Neut % (Auto) 87.2 H Lymph % (Auto) 10.7 L [place] % (Auto) 1.4 Eos % (Auto) 0.5 Baso % (Auto) 0.1 Absolute Neuts (auto) 7.2 Absolute Lymphs (auto) 0.89 Total Counted Not Reportable Sodium 132 L Potassium 5.9 H Chloride 97 L Carbon Dioxide 27.0 Anion Gap 8 BUN 78 H Creatinine 2.47 H Estim Creat Clear Calc 15.43 Est GFR (MDRD) Af Amer 24 L Est GFR (MDRD) Non-Af 20 L BUN/Creatinine Ratio 31.6 H Glucose 124 H Calcium 8.1 L Urine Color Urine Clarity Urine pH Ur Specific [place] Urine Protein Urine Glucose (UA) Urine Ketones Urine Occult Blood Urine Nitrite Urine Bilirubin Urine Urobilinogen Ur Leukocyte Esterase Urine RBC Urine WBC Ur Squamous Epith Cells Urine Bacteria Urine Mucus Assessment/Plan All Active Problems Right tibial fracture (Resolved) Cellulitis of the legs (Acute) 82 year old female with below past medical history hospitalized for non-healing right lower extremity venous stasis ulcer, admitted to TCU with debility, here for rehabilitation, strengthening, wound care, prior to discharge home. * Acute on chronic kidney injury - Cr bumped from 1.29 to 2.87 over 5 days, NS 500ML IV bolus given, now 60ML/HR, Cr improved to 2.47 today. Will stop all antibiotics. * Dehydration - Continue IV fluids, and BMP tomorrow AM. * Hyperkalemia - K 5.9, Kayexalate 30GM PO x 1 dose, BMP in AM. * P. Mirabilis UTI - UA improved, stop Augmentin. * Multi-microbial wound infection - Appreciate Dr. Flor input, but I think combination of antibiotics worsening kidney function, stop Cipro, stop Linezolid. * Constipation - Already on Miralax 17GM daily, Senna/colace 1 tablet BID, Rx Golytely 2 Liters PO x 1 dose. * Polypharmacy - Stop Augmentin, Vitamin C, Cipro, D2, Gabapentin, Duoneb, Linezolid, Lisinopril, MVI, Carlo, Oxycodone. * Coronary Artery Disease - Aspirin 81MG daily. * Dry Eye - Natural tears. * Skin irritation - Eucerin, Calmoseptine. * Hypothyroidism - Levothyroxine 100MCG daily. * Tinea Corporis - Nystatin powder. * Nausea - Zofran 4MG Q8H PRN. * GERD - Pantoprazole 20MG daily. * Atrial Fibrillation - Warfarin 3MG daily, check INR today.
[2018-06-09 09:17] LABS: International Normalized Ratio 3.3; Prothrombin Time (Protime)PT. 33.5 SECONDS (11.7-14.9)
[2018-06-09] MEDS: Sodium Polystyrene Sulfonate 15 GM/60 ML UDC 30 GM PO (09:42)
[2018-06-09 10:40] VITALS: O2SAT 98
[2018-06-09 15:15] VITALS: BP 99/44; PULSE 66; RESP 16; TEMP 36.8; O2SAT 92
[2018-06-09] MEDS: Aspirin E.C. 81 MG Tablet PO (21:04)
[2018-06-09 21:08] VITALS: PULSE 76; RESP 18; O2SAT 91
--- NOTE | 2018-06-10 00:20 | NURSING ---
pt refused to allow this nurse and aeronautical test engineer to elevate leg while in recliner. Asked pt if i could assisted her to be so it could help the drainage she has in her legs she refused. Stating that she wanted to stay in her recliner. And that it had been explained to her already about the importance of heels and legs been elevated and she stated she knew.
[2018-06-10] MEDS: Menthol/Lanolin/Calamine/Znox 113 GM Tube 1 APPLIC TOPICAL ×2 (06:48→21:47)
[2018-06-10] MEDS: Nystatin Powder 15gm Bottle 1 APPLIC TOPICAL ×2 (06:49→21:47)
[2018-06-10] MEDS: Senna/Docusate Sodium 1 Tablet PO (06:55)
[2018-06-10] MEDS: Pantoprazole Sodium 20 MG Tablet PO (06:55)
[2018-06-10] MEDS: Levothyroxine 100 MCG Tablet PO (06:55)
[2018-06-10] MEDS: Polyethylene Glycol 3350 17 GM PACKET PO (06:55)
[2018-06-10 08:22] LABS: Anion Gap 9 (5-15); BUN 80 mg/dL (7-18); BUN/Creat Ratio 39.6 RATIO (10-20); Calcium,Total 8.6 mg/dL (8.5-10.1); Chloride 98 mmol/L (98-107); Creatinine, Serum 2.02 mg/dL (0.55-1.02); EST Glomerular Filtration Rate 25 mL/min (>60); Est Glom Filt Rate - Afr Amer 30 mL/min (>60); Estimated Creatinine Clearance 18.86 ml/min; Glucose 109 mg/dL (74-106); Potassium 4.9 mmol/L (3.5-5.1); Sodium Level 134 mmol/L (136-145)
--- NOTE | 2018-06-10 08:46 | NURSING ---
PT IN PRECAUTIONS FOR MRSA IN WOUNDS
[2018-06-10] MEDS: Acetaminophen 500 MG Tablet 1000 MG PO ×2 (08:49→21:42)
--- NOTE | 2018-06-10 11:16 | NURSING ---
10;30AM DRESSINGS CHANGED. PT TOLERATED WELL,BUT VERY IRRITABLE.
--- NOTE | 2018-06-10 14:03 | NURSING ---
Dr. Sweet reviewed AM BMP, NNO
--- NOTE | 2018-06-10 14:19 | NURSING ---
IV D/C ,DUE TO NOT BEING ABLE TO FLUSH AND NEEDLE WAS OUT. PER FAMILIA LIGHT
--- NOTE | 2018-06-10 15:10 | NURSING ---
Dr. Sweet updated to pt c/o pain, Tylenol not effective, N.O. for Oxyir, pt updated.
[2018-06-10 16:00] VITALS: BP 102/41; PULSE 44; RESP 20; TEMP 35.8; O2SAT 100
[2018-06-10] MEDS: oxyCODONE 5 MG Tablet PO (18:03)
[2018-06-10] MEDS: Aspirin E.C. 81 MG Tablet PO (21:46)
[2018-06-10] MEDS: Ondansetron ODT 4 MG Tablet PO (21:51)
[2018-06-10 21:55] VITALS: PULSE 60; RESP 16; O2SAT 98
[2018-06-11] MEDS: oxyCODONE 5 MG Tablet PO ×4 (00:20→22:10)
[2018-06-11] MEDS: Nystatin Powder 15gm Bottle 1 APPLIC TOPICAL ×2 (05:50→20:24)
[2018-06-11] MEDS: Menthol/Lanolin/Calamine/Znox 113 GM Tube 1 APPLIC TOPICAL ×2 (05:51→20:23)
[2018-06-11] MEDS: Acetaminophen 500 MG Tablet 1000 MG PO ×2 (05:55→20:19)
[2018-06-11] MEDS: Levothyroxine 100 MCG Tablet PO (05:55)
[2018-06-11] MEDS: Pantoprazole Sodium 20 MG Tablet PO (05:56)
[2018-06-11 07:19] VITALS: O2SAT 100
[2018-06-11 07:20] VITALS: O2SAT 97
--- NOTE | 2018-06-11 08:10 | NURSING ---
PT IN PRECAUTIONS FOR MRSA IN WOUND.
[2018-06-11] MEDS: Ondansetron ODT 4 MG Tablet PO (08:28)
--- NOTE | 2018-06-11 08:30 | NURSING ---
THIS NURSE WALKED PT TO BATHROOM AND NOTICED PT LEFT GOWN SLEEVE HAD ALOT OF BLOOD ON IT. ASKED PT WHAT HAPPENED PT STATED SHE DIDNT KNOW. FOUND A SCAB SCRATCHED OPEN. CLEANED AND APPLIED BANDAID. PT RIGHT SIDE OF NOSE BLEEDING ALSO. PT STATED IT JUST STARTED. REPORTED TO FAMILIA LIGHT
[2018-06-11] MEDS: Sodium Chloride 0.65% 1 SPRAY SPRAY.BTL 2 SPRAY NASAL (15:14)
[2018-06-11 15:45] VITALS: BP 133/86; PULSE 46; RESP 18; TEMP 36.5; O2SAT 97
--- NOTE | 2018-06-11 15:48 | NURSING ---
Addendum entered by Juana Flynn 06/11/18 16:38: Dr. Sweet aware and N.O. received, pt updated Original Note: AT 1445 THIS NURSE CHANGED PT DRESSINGS TO LEGS AND LEFT HEEL. SKIN ON FEET IS SLOUGHING OFF,LEGS DRAINING. LARGE AMOUNT ON RIGHT. WOUNDS TO RIGHT BROWNISH IN AREAS. DRAINAGE COLOR,YELLOW TO BROWN. EDUCATED PT ON KEEPING LEGS UP, PT STATED I KNOW,I DONT WANT THEM UP. EDUCATED PT ON HAVING HER DRESSINGS CHANGED TWICE A DAY DUE TO THE DRAINAGE,DUE TO PT REFUSING TO LET CT SCAN TECH CHANGE THEM. PT STATED BUT I DONT WANT IT DONE IN THE MIDDLE OF NIGHT. THIS NURSE ASKED PT WHAT TIME WOULD BE GOOD FOR HER. PT STATED I DONT KNOW. ASKED PT HOW ABOUT 4 OR 5 AM. PT STATED NO THATS THE MIDDLE OF NIGHT. ALSO HAD FAMILIA LIGHT COME LOOK AT PT WOUNDS.
[2018-06-11] MEDS: Linezolid 600 MG Tablet PO (18:03)
[2018-06-11] MEDS: Ciprofloxacin 500 MG Tablet PO (18:03)
[2018-06-11] MEDS: 0.9% Normal Saline 1,000 ML 60 ML IV (19:03)
[2018-06-11] MEDS: Aspirin E.C. 81 MG Tablet PO (20:24)
--- NOTE | 2018-06-11 22:15 | NURSING ---
Addendum entered by Glenda Mari 06/11/18 22:58: Dr. Sweet notified. No new orders given. Original Note: pt states she wants neuropathy med back tonight because she has pain in her hands and feet and cannot sleep without it. States she told a nurse on mornings that she wanted it back. Told RN about pt concerns
--- NOTE | 2018-06-12 00:27 | NURSING ---
Pt continues to refuse to allow this nurse and special education para professional to elevated feet or lay in the bed to help with the pitting + 3 in BLE. Pt states she understands when providing her with teaching on elevating legs. No drainage noted on BLE at this time.
--- NOTE | 2018-06-12 03:41 | NURSING ---
Pt remain on MRSA precautions
[2018-06-12 05:56] LABS: Prothrombin Time (Protime)PT. 31.2 SECONDS (11.7-14.9)
[2018-06-12 06:08] LABS: Anion Gap 9 (5-15); BUN 62 mg/dL (7-18); Calcium,Total 8.3 mg/dL (8.5-10.1); Chloride 101 mmol/L (98-107); Creatinine, Serum 1.55 mg/dL (0.55-1.02); EST Glomerular Filtration Rate 34 mL/min (>60); Est Glom Filt Rate - Afr Amer 41 mL/min (>60); Estimated Creatinine Clearance 24.58 ml/min; Glucose 89 mg/dL (74-106); Potassium 4.9 mmol/L (3.5-5.1); Sodium Level 139 mmol/L (136-145)
[2018-06-12] MEDS: Pantoprazole Sodium 20 MG Tablet PO (06:27)
[2018-06-12] MEDS: Linezolid 600 MG Tablet PO ×2 (06:28→18:24)
[2018-06-12] MEDS: Levothyroxine 100 MCG Tablet PO (06:28)
[2018-06-12] MEDS: Menthol/Lanolin/Calamine/Znox 113 GM Tube 1 APPLIC TOPICAL ×2 (06:29→20:04)
[2018-06-12] MEDS: Nystatin Powder 15gm Bottle 1 APPLIC TOPICAL ×2 (06:29→20:05)
[2018-06-12] MEDS: oxyCODONE 5 MG Tablet PO ×3 (06:33→18:52)
[2018-06-12] MEDS: Acetaminophen 500 MG Tablet 1000 MG PO (10:16)
[2018-06-12] MEDS: Ondansetron ODT 4 MG Tablet PO ×2 (10:23→18:24)
[2018-06-12] MEDS: 0.9% Normal Saline 1,000 ML 60 ML IV (10:25)
--- NOTE | 2018-06-12 11:47 | NURSING ---
Entered room to hang new bag of saline, noted that pts legs were not elevated while sitting in recliner chiar. Instruction given that her legs need to be elevated, Pt stated that legs won't stay up on chair. Removed chair and replaced with another one. Will continue to encourage pt to keep legs up.
[2018-06-12] MEDS: Ciprofloxacin 500 MG Tablet PO (11:59)
[2018-06-12 14:43] VITALS: PULSE 65; RESP 18
--- NOTE | 2018-06-12 14:50 | PCM.PN.ID ---
Subjective: Legs still with brown drainage per nursing, but appear improved. No fever. - Physical Exam General: Cooperative Lungs: Diminished Cardiovascular: Regular rate, Regular Rhythm Abdomen: Soft, Non Tender, Non-Distended Extremities: Edema Skin: Ulcer/ Wound - BLE wrapped Vital Signs Temp Pulse Resp BP Pulse Ox 97.7 F L 46 L 18 133/86 H 97 06/11/18 15:45 06/11/18 15:45 06/11/18 15:45 06/11/18 15:45 06/11/18 15:45 Oxygen Flow Rate (L/min) 4 Oxygen Delivery Method Nasal Cannula Weight: 93.497 kg Body Mass Index (BMI) 35.9 Intake and Output for Last 24 Hours 06/10/18 06/11/18 06/12/18 23:59 23:59 23:59 Intake Total 920 / 920 840 / 840 120 / 120 Balance 920 / 920 840 / 840 120 / 120 Microbiology Past 72 Hours 06/08/18 22:40 Urine Culture - Final Urine, Catheterized Culture exhibits no growth. Laboratory Tests Past 24 Hrs 06/12/18 06/12/18 05:15 05:15 PT 31.2 H INR 3.0 Sodium 139 Potassium 4.9 Chloride 101 Carbon Dioxide 29.0 Anion Gap 9 BUN 62 H Creatinine 1.55 H Estim Creat Clear Calc 24.58 Est GFR (MDRD) Af Amer 41 L Est GFR (MDRD) Non-Af 34 L BUN/Creatinine Ratio 40.0 H Glucose 89 Calcium 8.3 L Medical Necessity - Tobacco Use Smoking Status: Never smoker Tobacco Use: Secondhand Route of nutrition/ use of supplements: [] Nutritional Intake: [] IV Site: [] Vitale Catheter: [] - Assessment/Plan Antibiotics: [] Assessment/Plan: [] RLE infected ulcer - cx with burkholderia x2, mrsa, and corynebacterium. Continue linezolid and cipro. Leg improved per nursing. proteus complicated uti - completed course. PING - improving Will follow
[2018-06-12 15:19] VITALS: BP 124/82; PULSE 69; RESP 18; TEMP 36.9; O2SAT 97
--- NOTE | 2018-06-12 15:19 | NURSING ---
Dressings to BLE changed. legs continue to seep with large amount of drainage. kerlix saturated. Aquacel AG to wounds saturated with a large amount of brown drainage; drainage has foul odor. wounds cleansed with normal saline and dried with sterile gauze. wound bed pink to rt inner ankle wound with bits of slough noted. slough noted to rt outer ankle wound and back of ankle wound. wounds covered with Aquacel AG, and ABD pads, wrapped with kerlix. pt denies discomfort with dressing change. medicated prior.
--- NOTE | 2018-06-12 17:50 | NURSING ---
dr Sweet in speaking with pt and family per pt request. pt wanting neurontin back, dc'd d/t kidney injury. restarted per pt request.
[2018-06-12] MEDS: Gabapentin 300 MG Capsule PO (18:53)
[2018-06-12] MEDS: Aspirin E.C. 81 MG Tablet PO (20:04)
[2018-06-13] MEDS: oxyCODONE 5 MG Tablet PO ×3 (01:11→22:00)
[2018-06-13] MEDS: 0.9% Normal Saline 1,000 ML 60 ML IV (03:36)
[2018-06-13] MEDS: Nystatin Powder 15gm Bottle 1 APPLIC TOPICAL ×2 (04:58→22:02)
[2018-06-13] MEDS: Polyethylene Glycol 3350 17 GM PACKET PO (04:59)
[2018-06-13] MEDS: Linezolid 600 MG Tablet PO ×2 (05:00→18:07)
[2018-06-13] MEDS: Acetaminophen 500 MG Tablet 1000 MG PO (05:00)
[2018-06-13] MEDS: Senna/Docusate Sodium 1 Tablet PO ×2 (05:00→18:07)
[2018-06-13] MEDS: Pantoprazole Sodium 20 MG Tablet PO (05:00)
[2018-06-13] MEDS: Levothyroxine 100 MCG Tablet PO (05:00)
[2018-06-13] MEDS: Menthol/Lanolin/Calamine/Znox 113 GM Tube 1 APPLIC TOPICAL ×2 (05:01→22:02)
[2018-06-13] MEDS: Ciprofloxacin 500 MG Tablet PO (05:01)
[2018-06-13] MEDS: Ondansetron ODT 4 MG Tablet PO (05:03)
[2018-06-13 05:53] LABS: Anion Gap 7 (5-15); BUN 45 mg/dL (7-18); BUN/Creat Ratio 37.2 RATIO (10-20); Calcium,Total 8.4 mg/dL (8.5-10.1); Chloride 103 mmol/L (98-107); Creatinine, Serum 1.21 mg/dL (0.55-1.02); EST Glomerular Filtration Rate 45 mL/min (>60); Est Glom Filt Rate - Afr Amer 55 mL/min (>60); Estimated Creatinine Clearance 31.49 ml/min; Glucose 90 mg/dL (74-106); Potassium 4.9 mmol/L (3.5-5.1); Sodium Level 139 mmol/L (136-145)
[2018-06-13 07:00] VITALS: O2SAT 97
[2018-06-13] MEDS: Gabapentin 300 MG Capsule PO ×2 (07:58→18:07)
--- NOTE | 2018-06-13 07:58 | NURSING ---
PT IN PRECAUTIONS FOR MRSA IN WOUND.
--- NOTE | 2018-06-13 09:17 | CASEMGMT ---
Brief interview for mental status (BIMS) and resident mood interview (PHQ-9) completed on this day. BIMS score 07/15. PHQ-9 score 01/24
--- NOTE | 2018-06-13 09:54 | NURSING ---
THIS NURSE ELEVATED PT LEGS IN RECLINER. PT NOT HAPPY AND STATED I PROMISED I WOULD KEEP MY LEGS UP IN BED FOR THE DOCTOR. THIS NURSE STATED TO PT THAT ALSO WANTED HER LEGS TO BE UP ALSO WHEN SHE IS IN THE RECLINER AND I WOULD BE BACK TO CHECK ON HER IN A HOUR AND WILL PUT THEM DOWN FOR A WHILE IF SHE WANTED. PT STATED OK. CALL LIGHT IN PT LAP. REPORTED TO FAMILIA ECHEVERRIA
--- NOTE | 2018-06-13 11:37 | NURSING ---
Dr. Sweet reviewed BMP results this morning, no new orders.
[2018-06-13] MEDS: Metoclopramide 10 MG/2 ML Vial 2.5 MG IV (14:35)
[2018-06-13] MEDS: 0.9% NaCl Peripheral Flush Adult/Peds IV (14:35)
--- NOTE | 2018-06-13 14:36 | NURSING ---
WALKED PT TO BED,CHANGED PT DRESSINGS, PT TOLERATED WELL. MINIMAL DRAINAGE TO LEFT POST CALF AND HEEL,EDEMA X3. NO ODER. LARGE BROWN/YELLOW DRAINAGE TO RIGHT LOWER LEG. WOUND BROWN/RED/YELLOW. STRONG,FOUL ODER. EDEMA X4. PT DECIDED TO STAY IN BED AND KEEP LEGS UP.
[2018-06-13 16:00] VITALS: BP 131/73; PULSE 69; RESP 20; TEMP 36.4; O2SAT 96
--- NOTE | 2018-06-13 16:27 | NURSING ---
PT STILL SLEEPING IN BED WITH LEGS UP.
[2018-06-13] MEDS: Aspirin E.C. 81 MG Tablet PO (22:01)
[2018-06-13] MEDS: Metoclopramide 10 MG Tablet PO (22:01)
[2018-06-13 22:11] VITALS: PULSE 74; RESP 18; O2SAT 78
[2018-06-14] MEDS: Ciprofloxacin 500 MG Tablet PO ×2 (01:06→17:43)
[2018-06-14] MEDS: oxyCODONE 5 MG Tablet PO ×3 (05:07→20:23)
[2018-06-14] MEDS: Levothyroxine 100 MCG Tablet PO (05:08)
[2018-06-14] MEDS: Pantoprazole Sodium 20 MG Tablet PO (05:08)
[2018-06-14] MEDS: Senna/Docusate Sodium 1 Tablet PO ×2 (05:08→17:44)
[2018-06-14] MEDS: Linezolid 600 MG Tablet PO ×2 (05:08→17:43)
[2018-06-14] MEDS: Menthol/Lanolin/Calamine/Znox 113 GM Tube 1 APPLIC TOPICAL ×2 (05:09→20:23)
[2018-06-14] MEDS: Nystatin Powder 15gm Bottle 1 APPLIC TOPICAL ×2 (05:10→20:23)
[2018-06-14] MEDS: 0.9% NaCl Peripheral Flush Adult/Peds IV ×2 (05:11→16:28)
[2018-06-14] MEDS: Polyethylene Glycol 3350 17 GM PACKET PO (05:11)
[2018-06-14] MEDS: Gabapentin 300 MG Capsule PO ×2 (08:03→17:43)
[2018-06-14] MEDS: Metoclopramide 10 MG Tablet PO ×4 (08:03→21:44)
--- NOTE | 2018-06-14 11:03 | PCM.PN.ID ---
Subjective: Feeling better, legs improved with less swelling and soreness - Physical Exam General: Alert, Cooperative Lungs: Clear to auscultation, Normal air movement Cardiovascular: Regular rate, Regular Rhythm Abdomen: Soft, Non Tender, Non-Distended Extremities: Edema - BLE Skin: Ulcer/ Wound - RLE wrapped Vital Signs Temp Pulse Resp BP Pulse Ox 97.5 F L 74 18 131/73 H 78 06/13/18 16:00 06/13/18 22:11 06/13/18 22:11 06/13/18 16:00 06/13/18 22:11 Oxygen Flow Rate (L/min) 4 Oxygen Delivery Method Nasal Cannula Weight: 93.213 kg Body Mass Index (BMI) 35.9 Intake and Output for Last 24 Hours 06/12/18 06/13/18 06/14/18 23:59 23:59 23:59 Intake Total 240 / 240 480 / 480 240 / 240 Balance 240 / 240 480 / 480 240 / 240 Microbiology Past 72 Hours 06/08/18 22:40 Urine Culture - Final Urine, Catheterized Culture exhibits no growth. Medical Necessity - Tobacco Use Smoking Status: Never smoker Tobacco Use: Secondhand Route of nutrition/ use of supplements: [] Nutritional Intake: [] IV Site: [] Vitale Catheter: [] - Assessment/Plan Antibiotics: [] Assessment/Plan: [] RLE infected ulcer - cx with burkholderia x2, mrsa, and corynebacterium. Continue linezolid and cipro. If leg still has heavy purulent drainage and odor, will repeat cx of drainage and she would likely benefit from plastic surgery eval for debridement. proteus complicated uti - completed course. PING - improving Will follow
--- NOTE | 2018-06-14 12:51 | NURSING ---
Pt resting in recliner prior to lunch with BLE elevated. Pt requested BLE be lowered for lunch and she would elevate again after she consumed lunch.
--- NOTE | 2018-06-14 13:05 | CASEMGMT ---
Social Work Spoke with resident in room. This director of social work communicating that discharge date has been set for 06/19/18. Resident is agreeable to discharge date. Team is recommending for resident to discharge to an extended care facility due to wound. Resident is not agreeable to transitioning to a nursing facility and is planning to discharge to home alone with home health services for physical and occupational therapy as well as penitentiary. Resident requesting for home health services to be set up through [facility] Resident reporting to have needed durable medical equipment already set up within the home. Resident [id number] also planning to learn how to manage wound care within the home as well. Nursing staff notified to begin wound care teaching with resident [id number]. Resident [id number] aware of above information and agreeable to discharge plan. Support given. Telephone call to [facility]. This director of social work making referral for physical and occupational therapy as well a penitentiary. Order to be completed. Proposed discharge date: 06/19/18 PLAN: Discharge to home alone with home health services. Jayda YOO, CARE PROVIDER
[2018-06-14] MEDS: Acetaminophen 500 MG Tablet 1000 MG PO (13:45)
[2018-06-14 15:16] LABS: Probe Check PASS; Staph aureus DNA By PCR POSITIVE (Negative)
[2018-06-14 15:27] LABS: M R Staph aureus DNA By PCR POSITIVE (Negative)
--- NOTE | 2018-06-14 15:46 | NURSING ---
wound photo: right medial lower leg
--- NOTE | 2018-06-14 15:46 | NURSING ---
wound photo: right posterolateral lower leg
[2018-06-14 15:53] VITALS: BP 107/53; PULSE 67; RESP 16; TEMP 36.8; O2SAT 99
--- NOTE | 2018-06-14 16:30 | NURSING ---
Per linter tender request, cardiac, low sodium diet.
--- NOTE | 2018-06-14 19:43 | PCM.DC ---
- Discharge Diagnoses Current Active Problems: Current Active and Chronic Problems Venous stasis ulcer of right lower extremity (Chronic) Coronary artery disease (Chronic) Atrial fibrillation (Chronic) COPD (chronic obstructive pulmonary disease) (Chronic) Sleep apnea (Chronic) Edema (Chronic) Neuropathic pain (Chronic) GERD (gastroesophageal reflux disease) (Chronic) Migraine (Chronic) Obesity (Chronic) You will use the following diet at home:: No restrictions, Regular Your food should be the consistency of: Regular Your liquids should be the consistency of: Regular/Thin Discharge Activity: Return to Normal Activity, May Shower, Use Walker Weight Bearing Status: Weight bearing as tolerated Call your doctor if you observe: Fever of 101 or Higher, Inability to urinate, Inability to have a bowel movement, Shortness of breath, Chest pain, Uncontrolled pain Allergies/Adverse Reactions: Allergies No Known Allergies Allergy (Verified 06/05/18 13:06) Medications to take at Discharge Acetaminophen [Pain Relief Extra Strength] 1,000 mg PO Q8H PRN PRN 04/25/17 Aspirin [Aspir-Low] 81 mg PO QHS 04/25/17 Gabapentin [Neurontin] 300 mg PO BIDCM 04/25/17 Levothyroxine [Synthroid] 100 mcg PO DAILY@0600 08/01/17 Linezolid 600 mg PO BID 06/05/18 Menthol/Lanolin/Calamine/Znox [Calmoseptine Ointment] 1 applic TOPICAL BID 06/05/18 Nystatin Powder [Mycostatin Powder] 1 applic TOPICAL BID 06/05/18 Ondansetron [Zofran Odt] 4 mg PO Q8H PRN PRN 06/05/18 Oxycodone [Oxyir] 5 mg PO Q6H PRN PRN 06/05/18 Pantoprazole Sodium [Protonix] 20 mg PO DAILY 06/05/18 Ciprofloxacin [Cipro] 500 mg PO Q18H #40 tab 06/14/18 Dextran 70/He-Cell [Tears Naturale, Artificial Tears] 1 drop EACH EYE Q1H PRN PRN bottle 06/14/18 Gabapentin [Neurontin] 300 mg PO BIDCM capsule 06/14/18 Linezolid [Zyvox] 600 mg PO BID #60 tab 06/14/18 Menthol/Lanolin/Calamine/Znox [Calmoseptine Ointment] 1 applic TOPICAL 0600,2200 tube 06/14/18 Metoclopramide [Reglan] 10 mg PO ACHS #120 tab 06/14/18 Nystatin Powder [Mycostatin Powder] 1 applic TOPICAL 0600,2200 bottle 06/14/18 Ondansetron [Zofran Odt] 4 mg PO Q8H PRN PRN #90 tab 06/14/18 Oxycodone [Oxyir] 5 - 10 mg PO Q6H PRN PRN #30 tab 06/14/18 Pantoprazole Sodium [Protonix] 20 mg PO DAILY tablet 06/14/18 Warfarin [Coumadin] 2.5 mg PO DAILY@1700 #30 tab 06/14/18 The following prescriptions were given: Oxycodone [Oxyir] 5 - 10 mg PO Q6H PRN PRN #30 tab PRN Reason: Severe Pain (6-08/09) Ondansetron [Zofran Odt] 4 mg PO Q8H PRN PRN #90 tab PRN Reason: NAUSEA Ciprofloxacin [Cipro] 500 mg PO Q18H #40 tab Metoclopramide [Reglan] 10 mg PO ACHS #120 tab Warfarin [Coumadin] 2.5 mg PO DAILY@1700 #30 tab Linezolid [Zyvox] 600 mg PO BID #60 tab Orders to be completed after discharge: Prothrombin Time w/INR Time Frame: 1 Day, Location: Laboratory Primary Care Physician: Mani Myles MD [Primary Care Provider] - Please follow up with your Primary Care Physician in: 1 week. Test Results: Test results from this visit will be discussed in further detail at your follow-up appointment, if applicable. Please Follow Up With: Dr. Myles-CANCELED Please Follow Up With: Dr. Kalen Fernandes When: 2 weeks. Please Follow Up With: Zachery Flor MD When: 1 week. Proposed Discharge Date: 06/19/18
--- NOTE | 2018-06-14 19:46 | PCM.DC.SUM ---
Discharge Date and Diagnosis Date of Admission: 05/25/18 Date of Discharge: 06/19/18 - Secondary Discharge Diagnosis Chronic Problems Venous stasis ulcer of right lower extremity (Chronic) Coronary artery disease (Chronic) Atrial fibrillation (Chronic) COPD (chronic obstructive pulmonary disease) (Chronic) Sleep apnea (Chronic) Edema (Chronic) Neuropathic pain (Chronic) GERD (gastroesophageal reflux disease) (Chronic) Migraine (Chronic) Obesity (Chronic) Immobility (Chronic) Right leg pain (Chronic) Heart failure with preserved ejection fraction (Chronic) Fracture of fifth metatarsal bone of left foot (Chronic) Delayed wound healing (Chronic) 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) Vitamin D deficiency (Chronic) Neuropathy (Chronic) 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) Malnutrition (Chronic) Ulcer of right leg (Chronic) Cellulitis of right lower extremity (Chronic) Leg ulcer, left (Chronic) Edema leg (Chronic) Lymphedema of lower extremity (Chronic) Congestive heart failure (Chronic) History of myocardial infarction (Chronic) Incontinence of urine (Chronic) Hypertension (Chronic) Morbid obesity (Chronic) Hypothyroidism (Chronic) Hypercholesterolemia (Chronic) Osteoarthritis (arthritis due to wear and tear of joints) (Chronic) Rheumatoid arthritis (Chronic) Hospital Course and Treatment Imaging Results: 05/25/18 19:30 Diet: Cardiac/Low Cholesterol Food consistency:: Soft Liquid Consistency:: Regular/Thin Dietary Modifications:: Soft Diet Diet Comments: low sodium, double swallow with every bite/sip Clinical Impression(s) from Imaging Studies Chest X-Ray 06/08/18 22:06 IMPRESSION: Interval pulmonary vascular congestion which is decreased when compared with the prior exam. Electronically Signed: Javier Serrano, at 23:11 EDT Tel , Service support , KUB X-Ray 06/08/18 22:55 IMPRESSION: No bowel obstruction. The patient. Electronically Signed: Javier Serrano, at 23:13 EDT Tel , Service support , ADDENDUM: 06/08/18 2320 IMPRESSION: No bowel obstruction. Constipation. Electronically Signed: Javier Serrano at 23:13 EDT Tel , Service support , Labs (Last 48 Hours) 06/13/18 06/14/18 05:20 13:30 Sodium 139 Potassium 4.9 Chloride 103 Carbon Dioxide 29.0 Anion Gap 7 BUN 45 H Creatinine 1.21 H Estim Creat Clear Calc 31.49 Est GFR (MDRD) Af Amer 55 L Est GFR (MDRD) Non-Af 45 L BUN/Creatinine Ratio 37.2 H Glucose 90 Calcium 8.4 L S.aureus Protein A PCR POSITIVE H MRSA (PCR) POSITIVE H Consultations 05/25/18 Consult: Onc/Wound/hog cutter Routine Comment: Reason for Consult:: RLE Stasis Ulcer Operations: None Procedures: None Summary of Care Provided: The patient is a 82 year old F emale with below past medical history hospitalized for non-healing right lower extremity venous stasis ulcer, admitted to TCU with debility, here for rehabilitation, strengthening, wound care, prior to discharge home. Discharge home alone, with Home Health Services. Discharge Diet: No Restrictions Discharge Activity: Return to Normal Activity, May Shower, Use Walker Weight Bearing Status: Weight bearing as tolerated Call your doctor if you observe: Fever of 101 or Higher, Inability to urinate, Inability to have a bowel movement, Shortness of breath, Chest pain, Uncontrolled pain Home Medications: Medications to take at Discharge Acetaminophen [Pain Relief Extra Strength] 1,000 mg PO Q8H PRN PRN 04/25/17 Aspirin [Aspir-Low] 81 mg PO QHS 04/25/17 Gabapentin [Neurontin] 300 mg PO BIDCM 04/25/17 Levothyroxine [Synthroid] 100 mcg PO DAILY@0600 08/01/17 Linezolid 600 mg PO BID 06/05/18 Menthol/Lanolin/Calamine/Znox [Calmoseptine Ointment] 1 applic TOPICAL BID 06/05/18 Nystatin Powder [Mycostatin Powder] 1 applic TOPICAL BID 06/05/18 Ondansetron [Zofran Odt] 4 mg PO Q8H PRN PRN 06/05/18 Oxycodone [Oxyir] 5 mg PO Q6H PRN PRN 06/05/18 Pantoprazole Sodium [Protonix] 20 mg PO DAILY 06/05/18 Ciprofloxacin [Cipro] 500 mg PO Q18H #40 tab 06/14/18 Dextran 70/He-Cell [Tears Naturale, Artificial Tears] 1 drop EACH EYE Q1H PRN PRN bottle 06/14/18 Gabapentin [Neurontin] 300 mg PO BIDCM capsule 06/14/18 Linezolid [Zyvox] 600 mg PO BID #60 tab 06/14/18 Menthol/Lanolin/Calamine/Znox [Calmoseptine Ointment] 1 applic TOPICAL 0600,2200 tube 06/14/18 Metoclopramide [Reglan] 10 mg PO ACHS #120 tab 06/14/18 Nystatin Powder [Mycostatin Powder] 1 applic TOPICAL 0600,2200 bottle 06/14/18 Ondansetron [Zofran Odt] 4 mg PO Q8H PRN PRN #90 tab 06/14/18 Oxycodone [Oxyir] 5 - 10 mg PO Q6H PRN PRN #30 tab 06/14/18 Pantoprazole Sodium [Protonix] 20 mg PO DAILY tablet 06/14/18 Warfarin [Coumadin] 2.5 mg PO DAILY@1700 #30 tab 06/14/18 Following Prescrptions Were Given to Patient: Oxycodone [Oxyir] 5 - 10 mg PO Q6H PRN PRN #30 tab PRN Reason: Severe Pain (6-10/10) Ondansetron [Zofran Odt] 4 mg PO Q8H PRN PRN #90 tab PRN Reason: NAUSEA Ciprofloxacin [Cipro] 500 mg PO Q18H #40 tab Metoclopramide [Reglan] 10 mg PO ACHS #120 tab Warfarin [Coumadin] 2.5 mg PO DAILY@1700 #30 tab Linezolid [Zyvox] 600 mg PO BID #60 tab Other Amb Orders: Prothrombin Time w/INR Time Frame: 1 Day, Location: Laboratory Primary Care Physician: Mani Myles MD [Primary Care Provider] - Please follow up with your Primary Care Physician in: 1 week. Please Follow Up With: Dr. Myles-CANCELED Please Follow Up With: Dr. Kalen Fernandes When: 2 weeks. Please Follow Up With: Zachery Flor MD When: 1 week. Disposition: Home with Home Health Minutes spent on discharge:: 35 Patient Condition:: Poor Medical Necessity - Tobacco Use Smoking Status: Never smoker Tobacco Use: Secondhand Meaningful Use Info Meaningful Use Diagnoses (Choose all that apply): None applicable
--- NOTE | 2018-06-14 19:48 | PCM.PN.HH ---
Home Health Note - Plan Overview of reason of hospitalization: The patient is a 82 year old F emale with below past medical history hospitalized for non-healing right lower extremity venous stasis ulcer, admitted to TCU with debility, here for rehabilitation, strengthening, wound care, prior to discharge home. Discharge home alone, with Home Health Services. Problems: Patient was seen for Venous stasis ulcer of right lower extremity (Chronic) Coronary artery disease (Chronic) Atrial fibrillation (Chronic) COPD (chronic obstructive pulmonary disease) (Chronic) Sleep apnea (Chronic) Edema (Chronic) Neuropathic pain (Chronic) GERD (gastroesophageal reflux disease) (Chronic) Migraine (Chronic) Obesity (Chronic) Complete List of Medical Problems Venous stasis ulcer of right lower extremity (Chronic) Coronary artery disease (Chronic) Atrial fibrillation (Chronic) COPD (chronic obstructive pulmonary disease) (Chronic) Sleep apnea (Chronic) Edema (Chronic) Neuropathic pain (Chronic) GERD (gastroesophageal reflux disease) (Chronic) Migraine (Chronic) Obesity (Chronic) Immobility (Chronic) Right leg pain (Chronic) Heart failure with preserved ejection fraction (Chronic) Fracture of fifth metatarsal bone of left foot (Chronic) Delayed wound healing (Chronic) 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) Vitamin D deficiency (Chronic) Neuropathy (Chronic) 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) Malnutrition (Chronic) Ulcer of right leg (Chronic) Cellulitis of the legs (Acute) Cellulitis of right lower extremity (Chronic) Leg ulcer, left (Chronic) Edema leg (Chronic) Lymphedema of lower extremity (Chronic) Congestive heart failure (Chronic) History of myocardial infarction (Chronic) Incontinence of urine (Chronic) Hypertension (Chronic) Morbid obesity (Chronic) Hypothyroidism (Chronic) Hypercholesterolemia (Chronic) Osteoarthritis (arthritis due to wear and tear of joints) (Chronic) Rheumatoid arthritis (Chronic) - Requirements and Reasons Disciplines Needed/Ordered: Half-Way, Physical Therapy Reason for Disciplines: Disease Specific Monitoring/education, Medication Management/Knowledge Deficit, Wound Care, Gait Training, Stair Training, Fall Prevention, Home Safety/Equipment Instruction, Balance and/or Posture Training, Transfer Training Related To: Limited/Poor Endurance, Shortness of Breath with Activity, Physical Impairments, Unsteady Gait/Balance, Fall Risk Patient is unable to leave the home: Without Aid of Supportive Devices (crutches, cane, wheelchair, walker), Without the assistance of another person - Additional Disciplines Additional Disciplines Needed/Ordered: Occupational Therapy
[2018-06-14] MEDS: Aspirin E.C. 81 MG Tablet PO (20:23)
[2018-06-14 22:09] VITALS: PULSE 72; RESP 16; O2SAT 94
[2018-06-15] MEDS: Acetaminophen 500 MG Tablet 1000 MG PO ×2 (02:51→15:53)
[2018-06-15] MEDS: Menthol/Lanolin/Calamine/Znox 113 GM Tube 1 APPLIC TOPICAL ×2 (05:40→21:59)
[2018-06-15] MEDS: Polyethylene Glycol 3350 17 GM PACKET PO (05:42)
[2018-06-15] MEDS: oxyCODONE 5 MG Tablet PO ×3 (05:42→21:58)
[2018-06-15] MEDS: Senna/Docusate Sodium 1 Tablet PO ×2 (05:43→17:14)
[2018-06-15] MEDS: Levothyroxine 100 MCG Tablet PO (05:43)
[2018-06-15] MEDS: Linezolid 600 MG Tablet PO ×2 (05:43→17:15)
[2018-06-15] MEDS: Pantoprazole Sodium 20 MG Tablet PO (05:43)
[2018-06-15] MEDS: Nystatin Powder 15gm Bottle 1 APPLIC TOPICAL ×2 (05:43→21:59)
[2018-06-15 05:50] LABS: International Normalized Ratio 3.2; Prothrombin Time (Protime)PT. 32.8 SECONDS (11.7-14.9)
[2018-06-15 06:48] VITALS: O2SAT 95
[2018-06-15] MEDS: Gabapentin 300 MG Capsule PO ×2 (08:06→17:14)
[2018-06-15] MEDS: Metoclopramide 10 MG Tablet PO ×4 (08:07→21:59)
--- NOTE | 2018-06-15 10:02 | PCM.PN.ID ---
Subjective: Feeling better, trying to keep legs elevated. Currently sitting in chair with feet on floor. No fever. - Physical Exam General: Alert, Cooperative, No apparent distress Lungs: Clear to auscultation, Normal air movement Cardiovascular: Regular rate, Regular Rhythm Abdomen: Soft, Non Tender, Non-Distended Extremities: Edema Skin: Ulcer/ Wound - Reviewed photos. Vital Signs Temp Pulse Resp BP Pulse Ox 98.2 F 72 16 107/53 L 95 06/14/18 15:53 06/14/18 22:09 06/14/18 22:09 06/14/18 15:53 06/15/18 06:48 Oxygen Flow Rate (L/min) 4 Oxygen Delivery Method Nasal Cannula Weight: 93.213 kg Body Mass Index (BMI) 35.9 Intake and Output for Last 24 Hours 06/13/18 06/14/18 06/15/18 23:59 23:59 23:59 Intake Total 480 / 480 720 / 720 620 / 620 Balance 480 / 480 720 / 720 620 / 620 Laboratory Tests Past 24 Hrs 06/14/18 06/15/18 13:30 05:20 PT 32.8 H INR 3.2 S.aureus Protein A PCR POSITIVE H MRSA (PCR) POSITIVE H Medical Necessity - Tobacco Use Smoking Status: Never smoker Tobacco Use: Secondhand Route of nutrition/ use of supplements: [] Nutritional Intake: [] IV Site: [] Vitale Catheter: [] - Assessment/Plan Antibiotics: [] Assessment/Plan: [] RLE infected ulcer - cx with burkholderia x2, mrsa, and corynebacterium. Continue linezolid and cipro, has completed 10 days of abx and is overall feeling better. Repeat wound cx pending, still heavy drainage but may be more related to fluid than infection. May be able to stop abx tomorrow and have her follow-up with [facility] where she has been in past. proteus complicated uti - completed course. PING - improving Will follow
[2018-06-15] MEDS: Ciprofloxacin 500 MG Tablet PO (12:14)
[2018-06-15 16:00] VITALS: BP 118/69; PULSE 66; RESP 18; TEMP 36.7; O2SAT 99
--- NOTE | 2018-06-15 16:30 | CASEMGMT ---
Social Work Discharge information and [facility]. Proposed discharge date: 06/19/18 PLAN: Discharge to home with daughter and home health services. Jayda YOO, SPECIAL SERVICE OFFICER
[2018-06-15] MEDS: Aspirin E.C. 81 MG Tablet PO (21:59)
[2018-06-15 22:00] VITALS: RESP 18; O2SAT 95
[2018-06-16] MEDS: Acetaminophen 500 MG Tablet 1000 MG PO ×2 (01:54→17:03)
[2018-06-16] MEDS: oxyCODONE 5 MG Tablet PO ×2 (04:21→21:46)
[2018-06-16] MEDS: Levothyroxine 100 MCG Tablet PO (04:22)
[2018-06-16] MEDS: Senna/Docusate Sodium 1 Tablet PO ×2 (04:22→16:59)
[2018-06-16] MEDS: Pantoprazole Sodium 20 MG Tablet PO (04:22)
[2018-06-16] MEDS: Linezolid 600 MG Tablet PO ×2 (04:22→16:58)
[2018-06-16] MEDS: Ciprofloxacin 500 MG Tablet PO ×2 (04:22→23:31)
[2018-06-16] MEDS: Menthol/Lanolin/Calamine/Znox 113 GM Tube 1 APPLIC TOPICAL ×2 (04:23→21:48)
[2018-06-16] MEDS: Nystatin Powder 15gm Bottle 1 APPLIC TOPICAL ×2 (04:23→21:48)
[2018-06-16] MEDS: Polyethylene Glycol 3350 17 GM PACKET PO (04:23)
[2018-06-16 06:00] LABS: Absolute Lymphocyte Count 1.48 X10^3/ul (0.83-4.51); Basophil# 0.04 X10^3/uL; Basophil% 0.6 % (0-1); Eosinophil# 0.27 X10^3/uL; Eosinophils% 4.3 % (0-5); Hematocrit 31.5 % (37-47); Hemoglobin 9.6 g/dl (12.0-15.0); Lymphocyte # 1.48 X10^3/ul (4.0); Lymphocyte % 23.5 % (19-41); Mean Corp Hgb Conc 30.5 g/gl (32-36); Mean Corpuscular Hgb 27.6 pg (27.0-32.0); Mean Corpuscular Volume 90.5 fL (81-99); Mean Platelet Vol. 10.2 fl (6.2-12.0); Monocyte# 0.48 X10^3/uL; Monocyte% 7.6 % (0-10); Neutrophil # 4.02 X10^3/uL (2.7-7.7); Neutrophil % 63.7 % (47-70); Platelet Count 173 K/mm3 (150-450); RBC Distribution Width CV 16.3 % (11.6-14.6); RBC Distribution Width SD 52.4 fl (35.1-43.9); Red Blood Count 3.48 M/mm3 (4.2-5.4); White Blood Count 6.3 K/mm3 (4.4-11.0)
[2018-06-16 06:07] LABS: POSITIVE COUNT NO; POSITIVE DIFFERENTIAL NO; POSITIVE MORPHOLOGY NO
[2018-06-16 06:17] LABS: Anion Gap 4 (5-15); BUN 31 mg/dL (7-18); BUN/Creat Ratio 25.8 RATIO (10-20); Calcium,Total 7.9 mg/dL (8.5-10.1); Chloride 102 mmol/L (98-107); EST Glomerular Filtration Rate 46 mL/min (>60); Est Glom Filt Rate - Afr Amer 55 mL/min (>60); Estimated Creatinine Clearance 31.75 ml/min; Glucose 85 mg/dL (74-106); Potassium 4.8 mmol/L (3.5-5.1); Sodium Level 135 mmol/L (136-145)
[2018-06-16] MEDS: Metoclopramide 10 MG Tablet PO ×4 (06:52→21:47)
[2018-06-16 07:00] VITALS: RESP 16; O2SAT 94
[2018-06-16] MEDS: Gabapentin 300 MG Capsule PO ×2 (08:44→16:58)
[2018-06-16] MEDS: Magnesium Citrate 300 ML PO (10:30)
--- NOTE | 2018-06-16 12:58 | PCM.PN.ID ---
Subjective: Feeling better, no fever, no n/v/d. - Physical Exam General: Alert, Cooperative, No apparent distress Lungs: Clear to auscultation, Normal air movement Cardiovascular: Regular rate, Regular Rhythm Abdomen: Soft, Non Tender, Non-Distended Extremities: Edema Skin: Ulcer/ Wound - bandaged Vital Signs Temp Pulse Resp BP Pulse Ox 98.0 F 66 16 118/69 94 06/15/18 16:00 06/15/18 16:00 06/16/18 07:00 06/15/18 16:00 06/16/18 07:00 Oxygen Flow Rate (L/min) 2 Oxygen Delivery Method Nasal Cannula Weight: 95.396 kg Body Mass Index (BMI) 35.9 Intake and Output for Last 24 Hours 06/14/18 06/15/18 06/16/18 23:59 23:59 23:59 Intake Total 720 / 720 1180 / 1180 1220 / 1220 Output Total 100 / 100 Balance 720 / 720 1180 / 1180 1120 / 1120 Microbiology Past 72 Hours 06/14/18 13:30 Gram Stain - Final Wound - Leg, Right Wound Culture - Preliminary Proteus mirabilis Laboratory Tests Past 24 Hrs 06/16/18 06/16/18 05:10 05:10 WBC 6.3 RBC 3.48 L Hgb 9.6 L Hct 31.5 L MCV 90.5 MCH 27.6 MCHC 30.5 L RDW 16.3 H RDW Differential 52.4 H Plt Count 173 MPV 10.2 Immature Gran % (Auto) 0.300 Neut % (Auto) 63.7 Lymph % (Auto) 23.5 [place] % (Auto) 7.6 Eos % (Auto) 4.3 Baso % (Auto) 0.6 Absolute Neuts (auto) 4.0 Absolute Lymphs (auto) 1.48 Total Counted Not Reportable Sodium 135 L Potassium 4.8 Chloride 102 Carbon Dioxide 29.0 Anion Gap 4 L BUN 31 H Creatinine 1.20 H Estim Creat Clear Calc 31.75 Est GFR (MDRD) Af Amer 55 L Est GFR (MDRD) Non-Af 46 L BUN/Creatinine Ratio 25.8 H Glucose 85 Calcium 7.9 L Medical Necessity - Tobacco Use Smoking Status: Never smoker Tobacco Use: Secondhand Route of nutrition/ use of supplements: [] Nutritional Intake: [] IV Site: [] Vitale Catheter: [] - Assessment/Plan Antibiotics: [] Assessment/Plan: [] RLE infected ulcer - cx with burkholderia x2, mrsa, and corynebacterium. Continue linezolid and cipro, has completed over 10 days of abx and is overall feeling better. Wound cx now with no purulence but GNR x2 seen with heavy growth of proteus. Will adjust abx as needed. proteus complicated uti - completed course. PING - improving Will follow
[2018-06-16 16:00] VITALS: BP 146/60; PULSE 61; RESP 20; TEMP 36.6; O2SAT 97
[2018-06-16] MEDS: Aspirin E.C. 81 MG Tablet PO (21:47)
[2018-06-16] MEDS: Ondansetron ODT 4 MG Tablet PO (21:52)
[2018-06-17] MEDS: Acetaminophen 500 MG Tablet 1000 MG PO ×2 (02:05→10:11)
[2018-06-17] MEDS: oxyCODONE 5 MG Tablet PO ×2 (05:49→19:45)
[2018-06-17] MEDS: Polyethylene Glycol 3350 17 GM PACKET PO (05:49)
[2018-06-17] MEDS: Senna/Docusate Sodium 1 Tablet PO ×2 (05:49→17:28)
[2018-06-17] MEDS: Linezolid 600 MG Tablet PO ×2 (05:49→17:29)
[2018-06-17] MEDS: Nystatin Powder 15gm Bottle 1 APPLIC TOPICAL ×2 (05:50→20:22)
[2018-06-17] MEDS: Pantoprazole Sodium 20 MG Tablet PO (05:50)
[2018-06-17] MEDS: Levothyroxine 100 MCG Tablet PO (05:50)
[2018-06-17] MEDS: Menthol/Lanolin/Calamine/Znox 113 GM Tube 1 APPLIC TOPICAL ×2 (05:51→19:51)
[2018-06-17] MEDS: Gabapentin 300 MG Capsule PO ×2 (07:09→17:29)
[2018-06-17] MEDS: Metoclopramide 10 MG Tablet PO ×4 (07:09→21:39)
[2018-06-17 07:30] VITALS: PULSE 78; RESP 18; O2SAT 93
[2018-06-17 07:32] VITALS: O2SAT 94
[2018-06-17 15:17] VITALS: BP 127/72; PULSE 60; RESP 18; TEMP 36.1; O2SAT 100
--- NOTE | 2018-06-17 15:53 | NURSING ---
COMMERCIAL REAL ESTATE ATTORNEY found new open area to patient's left posterior calf. Cleansed with NS and aquacel AG and CDD applied per order.
[2018-06-17] MEDS: Ciprofloxacin 500 MG Tablet PO (17:29)
[2018-06-17] MEDS: Aspirin E.C. 81 MG Tablet PO (20:21)
--- NOTE | 2018-06-17 21:41 | NURSING ---
Pt remains in contact isolation for MRSA in wound on right lower leg. All care provided in room.
[2018-06-18] MEDS: oxyCODONE 5 MG Tablet PO ×3 (02:20→19:47)
[2018-06-18] MEDS: Menthol/Lanolin/Calamine/Znox 113 GM Tube 1 APPLIC TOPICAL ×2 (06:43→19:48)
[2018-06-18] MEDS: Nystatin Powder 15gm Bottle 1 APPLIC TOPICAL ×2 (06:44→19:48)
[2018-06-18] MEDS: Polyethylene Glycol 3350 17 GM PACKET PO (06:44)
[2018-06-18] MEDS: Levothyroxine 100 MCG Tablet PO (06:45)
[2018-06-18] MEDS: Linezolid 600 MG Tablet PO ×2 (06:45→17:36)
[2018-06-18] MEDS: Senna/Docusate Sodium 1 Tablet PO ×2 (06:45→17:30)
[2018-06-18] MEDS: Pantoprazole Sodium 20 MG Tablet PO (06:45)
[2018-06-18] MEDS: Acetaminophen 500 MG Tablet 1000 MG PO ×3 (06:51→23:35)
[2018-06-18] MEDS: Metoclopramide 10 MG Tablet PO ×4 (06:54→21:10)
[2018-06-18 07:23] VITALS: O2SAT 98
[2018-06-18] MEDS: Gabapentin 300 MG Capsule PO ×2 (09:23→17:30)
[2018-06-18] MEDS: Ciprofloxacin 500 MG Tablet PO (11:09)
[2018-06-18 15:24] VITALS: BP 107/62; PULSE 58; RESP 20; TEMP 36.4; O2SAT 98
[2018-06-18] MEDS: Aspirin E.C. 81 MG Tablet PO (19:48)
--- NOTE | 2018-06-18 21:19 | NURSING ---
Pt remains in contact isolation for MRSA in wound on right foot. All care provided in room. Continuing to monitor.
[2018-06-19] MEDS: oxyCODONE 5 MG Tablet PO ×2 (02:40→10:36)
[2018-06-19] MEDS: Menthol/Lanolin/Calamine/Znox 113 GM Tube 1 APPLIC TOPICAL (06:28)
[2018-06-19] MEDS: Nystatin Powder 15gm Bottle 1 APPLIC TOPICAL (06:29)
[2018-06-19] MEDS: Ciprofloxacin 500 MG Tablet PO (06:29)
[2018-06-19] MEDS: Pantoprazole Sodium 20 MG Tablet PO (06:29)
[2018-06-19] MEDS: Senna/Docusate Sodium 1 Tablet PO (06:30)
[2018-06-19] MEDS: Levothyroxine 100 MCG Tablet PO (06:30)
[2018-06-19] MEDS: Linezolid 600 MG Tablet PO (06:30)
[2018-06-19] MEDS: Metoclopramide 10 MG Tablet PO ×2 (06:32→10:36)
[2018-06-19 06:33] LABS: International Normalized Ratio 2.3; Prothrombin Time (Protime)PT. 25.7 SECONDS (11.7-14.9)
[2018-06-19] MEDS: Acetaminophen 500 MG Tablet 1000 MG PO (07:51)
[2018-06-19] MEDS: Gabapentin 300 MG Capsule PO (07:51)
--- NOTE | 2018-06-19 10:33 | NURSING ---
Dr Sweet updated on Dr Chacho rod'lc smith & nico, wants keflex started instead.
[2018-06-19 11:24] VITALS: O2SAT 95
[2018-06-19 12:29] VITALS: BP 107/66; PULSE 74; RESP 16; TEMP 36.4; O2SAT 100
--- NOTE | 2018-06-19 13:31 | PCM.PN.ID ---
Subjective: Feeling better, d/c home today, no fever, no n/v/d. - Physical Exam General: Alert, Cooperative, No apparent distress Lungs: Clear to auscultation, Normal air movement Cardiovascular: Regular rate, Regular Rhythm Abdomen: Soft, Non Tender, Non-Distended Extremities: Edema Skin: Ulcer/ Wound - R ace wrapped Vital Signs Temp Pulse Resp BP Pulse Ox 97.6 F L 74 16 107/66 100 06/19/18 12:29 06/19/18 12:29 06/19/18 12:29 06/19/18 12:29 06/19/18 12:29 Oxygen Flow Rate (L/min) 5 Oxygen Delivery Method Nasal Cannula Weight: 96.7 kg Body Mass Index (BMI) 35.9 Intake and Output for Last 24 Hours 06/17/18 06/18/18 06/19/18 23:59 23:59 23:59 Intake Total 1040 / 1040 1160 / 1160 700 / 700 Balance 1040 / 1040 1160 / 1160 700 / 700 Microbiology Past 72 Hours 06/14/18 13:30 Gram Stain - Final Wound - Leg, Right Wound Culture - Preliminary Proteus mirabilis Stenotrophomonas maltophilia Laboratory Tests Past 24 Hrs 06/19/18 05:20 PT 25.7 H INR 2.3 Medical Necessity - Tobacco Use Smoking Status: Never smoker Tobacco Use: Secondhand Route of nutrition/ use of supplements: [] Nutritional Intake: [] IV Site: [] Vitale Catheter: [] - Assessment/Plan Antibiotics: [] Assessment/Plan: [] RLE infected ulcer - cx with burkholderia x2, mrsa, and corynebacterium. Completed course of linezolid and cipro. Is overall feeling better. Wound cx now with no purulence but GNR x2 seen with heavy growth of proteus and some steno. Ok for d.c on course of keflex. Suspect steno is contaminant. proteus complicated uti - completed course. PING - resolved Will follow, d/w Dr. Sweet.
[2018-06-19] MEDS: Cephalexin 500 MG Capsule PO (13:44)
--- NOTE | 2018-06-20 11:28 | MDS.RN ---
Information for the mds was obtained from review of the clinical record, interview of resident, staff, and direct observation of resident's care.
== END 2018-06-19 14:44 | disposition home health service (06) | DRG 948 ==
PROVIDERS: Internal Medicine Infectious Disease; Nurse Practitioner Family; Admitting Provider Family Medicine Geriatric Medicine; Family Provider Internal Medicine; PCP Internal Medicine; Visit Provider Family Medicine Geriatric Medicine
DX: R53.81 Other malaise (principal); I50.32 Chronic diastolic (congestive) heart failure; L97.912 Non-pressure chronic ulcer of unspecified part of right lower leg with fat layer exposed; N39.0 Urinary tract infection, site not specified; N17.9 Acute kidney failure, unspecified; I13.0 Hypertensive heart and chronic kidney disease with heart failure and stage 1 through stage 4 chronic kidney disease, or unspecified chronic kidney disease; I25.10 Atherosclerotic heart disease of native coronary artery without angina pectoris; J44.9 Chronic obstructive pulmonary disease, unspecified; I48.2 Chronic atrial fibrillation; K21.9 Gastro-esophageal reflux disease without esophagitis; I83.019 Varicose veins of right lower extremity with ulcer of unspecified site; G47.30 Sleep apnea, unspecified; M19.90 Unspecified osteoarthritis, unspecified site; E66.01 Morbid (severe) obesity due to excess calories; Z68.35 Body mass index [BMI] 35.0-35.9, adult; Z71.3 Dietary counseling and surveillance; M06.9 Rheumatoid arthritis, unspecified; E03.9 Hypothyroidism, unspecified; E55.9 Vitamin D deficiency, unspecified; R32 Unspecified urinary incontinence; E78.00 Pure hypercholesterolemia, unspecified; Z98.84 Bariatric surgery status; B96.4 Proteus (mirabilis) (morganii) as the cause of diseases classified elsewhere; B95.62 Methicillin resistant Staphylococcus aureus infection as the cause of diseases classified elsewhere; B96.89 Other specified bacterial agents as the cause of diseases classified elsewhere; I89.0 Lymphedema, not elsewhere classified; N18.9 Chronic kidney disease, unspecified; I25.2 Old myocardial infarction; E87.5 Hyperkalemia
CPT/HCPCS: 36415; 71045; 74018; 80048; 81001; 82962; 85025; 85610; 87070; 87075; 87077; 87086; 87088; 87186; 87205; 87640; 92507; 92526; 92610; 93005; 94640; 97110; 97116; 97162; 97166; 97530; 97535; 97802; J7030; J7040; A4216

== ENCOUNTER 2018-06-05 13:03 | Emergency (ER) | payer MEDICARE, BC, SELFPAY ==
[2018-06-05 13:06] VITALS: BP 119/66; PULSE 62; RESP 22; TEMP 36.6; O2SAT 96; BMI 37.7
[2018-06-05 13:18] VITALS: BP 123/66; PULSE 61; RESP 18
--- NOTE | 2018-06-05 13:24 | RAD_ITS ---
STUDY: X-RAY CHEST REASON FOR EXAM: Female, 82 years old. Chest pain and bradycardia. Atrial fibrillation, CHF and COPD. TECHNIQUE: Portable chest COMPARISON: 08/02/2017. FINDINGS: Hazy infiltrates perihilar bilateral superimposed upon underlying COPD/emphysema without dense focal consolidation. No visible effusion or pneumothorax. Mild cardiomegaly. RAD/Chest 1 View (Portable) IMPRESSION: Cardiopulmonary features favor edema superimposed upon underlying COPD/emphysema. Electronically Signed: Abdoul Trinidad, at 15:39 EDT Tel , Service support ,
--- NOTE | 2018-06-05 13:24 | EKG12_ITS ---
Test Reason : CP Blood Pressure : / mmHG Vent. Rate : 071 BPM Atrial Rate : 357 BPM P-R Int : 000 ms QRS Dur : 088 ms QT Int : 354 ms P-R-T Axes : 000 -23 -01 degrees QTc Int : 384 ms Atrial fibrillation / flutter Inferior infarct , age undetermined, cannot be excluded Anterior infarct , age undetermined ,cannot be excluded Abnormal ECG Confirmed by JOSIAH RUIZ, MAICOL ([id number]), supervising editor trailer LAURA JAMES ([id number]) on 06/07/2018 11:22:05 AM Referred By: CHARLENE Confirmed By:MAICOL RAHMAN MD
--- NOTE | 2018-06-05 13:29 | ED.VISSUMM ---
- ER Visit Summary Date of Service: 06/05/18 Chief Complaint: Chest pain History of Present Illness: The patient is a 82 F who presents with chest pain. Patient is complaining of pain that goes from her back into her chest. This started a while back. She is currently in TCU for rehab. She has very significant lymphedema bilaterally. She also feels short of breath. She does not give much history as to why she is having this pain. She cannot give me specific reasons as to what it feels like except that is burning. Physical Examination: Vital signs reviewed. HEENT exam unremarkable. Heart is regular rate and rhythm without murmurs. Lungs are clear to auscultation. Abdomen is soft and nontender. Extremities reveal significant lymphedema bilaterally. Her legs are wrapped. Skin exam normal. Neurologic exam reveals that she can answer questions appropriately when she is awake but after you stop asking questions she gets drowsy. Test Results: EKG is sinus rhythm with a rate of 68. No ST changes. Hemoglobin 9.9, sodium 134. Creatinine 1.66. Troponin normal. ABG is 7.413/49/74/31 Emergency Department Course and Treatment: Patient complained of no chest pain in the emergency department but she did complain of leg pain which is chronic. She was given her daily dose of oxycodone as well as Tylenol. Her chest x-ray does reveal some mild interstitial infiltrate. I discussed this with Dr. Sweet. He believes the patient can go back up to the TCU floor. Treatment Plan: [] Disposition: Discharge to TCU Impression: Chest pain resolved This note was generated with [employer] dictation software. It may contain incorrect words, spelling, and punctuation that were not noted in review of the chart prior to signing ED Disposition - Plan for ED Patient: Chief Complaint: Chest Pain Referrals: Mani Myles MD [Primary Care Provider] -
--- NOTE | 2018-06-05 13:32 | ED.DCSUM_ITS ---
- ER Visit Summary Date of Service: 06/05/18 Chief Complaint: Chest pain History of Present Illness: The patient is a 82 F who presents with chest pain. Patient is complaining of pain that goes from her back into her chest. This started a while back. She is currently in TCU for rehab. She has very significant lymphedema bilaterally. She also feels short of breath. She does not give much history as to why she is having this pain. She cannot give me specific reasons as to what it feels like except that is burning. Physical Examination: Vital signs reviewed. HEENT exam unremarkable. Heart is regular rate and rhythm without murmurs. Lungs are clear to auscultation. Abdomen is soft and nontender. Extremities reveal significant lymphedema bilaterally. Her legs are wrapped. Skin exam normal. Neurologic exam reveals that she can answer questions appropriately when she is awake but after you stop asking questions she gets drowsy. Test Results: EKG is sinus rhythm with a rate of 68. No ST changes. Hemoglobin 9.9, sodium 134. Creatinine 1.66. Troponin normal. ABG is 7.413/49 /74/31 Emergency Department Course and Treatment: Patient complained of no chest pain in the emergency department but she did complain of leg pain which is chronic. She was given her daily dose of oxycodone as well as Tylenol. Her chest x-ray does reveal some mild interstitial infiltrate. I discussed this with Dr. Sweet. He believes the patient can go back up to the TCU floor. Treatment Plan: [] Disposition: Discharge to TCU Impression: Chest pain resolved This note was generated with [employer] dictation software. It may contain incorrect words, spelling, and punctuation that were not noted in review of the chart prior to signing ED Disposition - Plan for ED Patient: Chief Complaint: Chest Pain Referrals: Mani Myles MD [Primary Care Provider] -
[2018-06-05 13:38] LABS: Absolute Lymphocyte Count 1.94 X10^3/ul (0.83-4.51); Absolute Neutrophil Count 5.1 X10^3/uL (2.0-7.7); Basophil# 0.04 X10^3/uL; Basophil% 0.5 % (0-1); Eosinophil# 0.34 X10^3/uL; Eosinophils% 4.1 % (0-5); Hematocrit 33.6 % (37-47); Hemoglobin 9.9 g/dl (12.0-15.0); Lymphocyte # 1.94 X10^3/ul (4.0); Lymphocyte % 23.3 % (19-41); Mean Corp Hgb Conc 29.5 g/gl (32-36); Mean Corpuscular Hgb 26.8 pg (27.0-32.0); Mean Corpuscular Volume 91.1 fL (81-99); Mean Platelet Vol. 9.8 fl (6.2-12.0); Monocyte# 0.85 X10^3/uL; Monocyte% 10.2 % (0-10); Neutrophil # 5.13 X10^3/uL (2.7-7.7); Neutrophil % 61.7 % (47-70); Platelet Count 285 K/mm3 (150-450); RBC Distribution Width CV 16.3 % (11.6-14.6); RBC Distribution Width SD 54.3 fl (35.1-43.9); Red Blood Count 3.69 M/mm3 (4.2-5.4); White Blood Count 8.3 K/mm3 (4.4-11.0)
[2018-06-05 13:40] LABS: POSITIVE COUNT NO; POSITIVE DIFFERENTIAL NO; POSITIVE MORPHOLOGY NO
[2018-06-05] MEDS: oxyCODONE 5 MG Tablet 10 MG PO (13:44)
[2018-06-05 13:49] LABS: Anion Gap 4 (5-15); BUN 53 mg/dL (7-18); BUN/Creat Ratio 31.9 RATIO (10-20); Calcium,Total 8.2 mg/dL (8.5-10.1); Chloride 97 mmol/L (98-107); Creatinine, Serum 1.66 mg/dL (0.55-1.02); EST Glomerular Filtration Rate 32 mL/min (>60); Est Glom Filt Rate - Afr Amer 38 mL/min (>60); Estimated Creatinine Clearance 21.99 ml/min; Glucose 112 mg/dL (74-106); Potassium 4.7 mmol/L (3.5-5.1); Sodium Level 134 mmol/L (136-145)
[2018-06-05 14:04] VITALS: BP 100/56; PULSE 67; RESP 20; O2SAT 100
[2018-06-05 14:05] LABS: Base Excess 7 mmol/L (-2 to +2); Bicarbonate 31.4 mmol/L (22-26); Blood Gas Specimen Type ART; O2 Delivery Device Nasal Can; PO2 74 mmHG (75-100); SITE L Brachial; SO2 95 % (95-99); Time Given 1355; Total Carbon Dioxide 33 mmol/L; pCO2 49.1 mmHg (35-45); pH 7.41 (7.35-7.45)
--- NOTE | 2018-06-05 14:13 | ED.RN ---
PT C/O PAIN AFTER PAIN MEDS ADMINISTERED, DR. RUANO AWARE.
[2018-06-05] MEDS: Acetaminophen 325 MG Tablet 650 MG PO (14:27)
[2018-06-05 15:00] VITALS: BP 127/66; PULSE 70; RESP 20; O2SAT 95
--- NOTE | 2018-06-05 15:47 | ED.DEP ---
ED Disposition - Plan for ED Patient: Disposition: Home or Assisted Living Chief Complaint: Chest Pain Instructions: ED Chest Pain NonCardiac Referrals: Mani Myles MD [Primary Care Provider] -
[2018-06-05 16:00] VITALS: BP 136/66; PULSE 84; RESP 16; O2SAT 100
[2018-06-05 16:09] VITALS: BP 119/70; PULSE 74; RESP 18; O2SAT 99
--- NOTE | 2018-06-05 16:15 | ED.RN ---
REPORT GIVEN TO FAMILIA MILNER IN TCU. PT SKIN P/W/D, RESP EVEN AND UNLABORED, PT A&O X 3, NO DISTRESS NOTED.
== END 2018-06-05 16:17 | disposition home or self-care (01) ==
PROVIDERS: Emergency Provider Emergency Medicine; Family Provider Internal Medicine; PCP Internal Medicine
DX: R07.9 Chest pain, unspecified (principal); I25.10 Atherosclerotic heart disease of native coronary artery without angina pectoris; I50.9 Heart failure, unspecified; J44.9 Chronic obstructive pulmonary disease, unspecified; E03.9 Hypothyroidism, unspecified; I48.91 Unspecified atrial fibrillation; Z79.2 Long term (current) use of antibiotics; Z79.82 Long term (current) use of aspirin; Z79.01 Long term (current) use of anticoagulants; Z79.891 Long term (current) use of opiate analgesic; Z79.899 Other long term (current) drug therapy
CPT/HCPCS: 36600; 71045; 80048; 82803; 84484; 85025; 93005; 99282

== ENCOUNTER 2018-10-01 10:25 | Inpatient (IN) | payer MEDICARE, BC, SELFPAY ==
[2018-10-01] VITALS (13 sets, daily range): BP systolic 95–149; BP diastolic 46–90; PULSE 64–99; RESP 16–30; TEMP 36.3–37.9; O2SAT 90–100; BMI 39.2; BMI 37.0
--- NOTE | 2018-10-01 10:39 | EKG12_ITS ---
Test Reason : SOB Blood Pressure : / mmHG Vent. Rate : 103 BPM Atrial Rate : 300 BPM P-R Int : 000 ms QRS Dur : 092 ms QT Int : 326 ms P-R-T Axes : 000 096 000 degrees QTc Int : 427 ms Atrial fibrillation with rapid ventricular response with premature ventricular or aberrantly conducte d complexes Rightward axis Low voltage QRS Incomplete right bundle branch block Nonspecific T wave abnormality Abnormal ECG Confirmed by JOSIAH RUIZ, MAICOL ([id number]), associate editor LAURA JAMES ([id number] on 10/03/2018 3:01:07 PM Referred By: SRIDEVI Confirmed By:MAICOL RAHMAN MD
--- NOTE | 2018-10-01 10:39 | CT_ITS ---
STUDY: CT ABDOMEN AND PELVIS WITHOUT CONTRAST REASON FOR EXAM: Female, 82 years old. Back pain RADIATION DOSAGE (If Supplied By Facility): CTDIvol = ( 24 ) mGy, DLP = ( 1090 ) mGycm TECHNIQUE: Transaxial images were obtained from the dome of the diaphragm to the symphysis pubis without oral contrast, and without intravenous contrast. Sagittal and coronal images were reconstructed. Individualized dose optimization techniques were used for this CT. COMPARISON: None. FINDINGS: Evaluation of the abdominal viscera is limited in the absence of intravenous contrast. Additionally, patient motion and streak artifact due to the patient's arms being at her side further limiting evaluation. There are small bilateral pleural effusions with overlying atelectasis. There are mild congestive changes noted. The heart is mildly enlarged. There are no calcified gallstones present. There are calcified granulomas in the liver. The liver otherwise demonstrates an unremarkable unenhanced appearance. The spleen is normal in size. There are calcified granulomata noted in the spleen. The pancreas demonstrates an unremarkable unenhanced appearance. The adrenal glands are within normal limits. There are no renal or ureteral stones. There is no hydronephrosis. There is a Vitale catheter in the urinary bladder. Normal visualized stomach. There is no bowel obstruction or inflammation. The appendix is not visualized, but there are no findings to suggest acute appendicitis. There is a small fat-containing ventral hernia. There is no bowel containing hernia. The aorta is normal in caliber. There is no abdominal or pelvic free air, free fluid, fluid collection or lymphadenopathy. There are no destructive osseous lesions. There are degenerative changes noted in the spine. There is diffuse anasarca noted in the soft tissues. CT/Abdomen/Pelvis without Cont IMPRESSION: Cardiomegaly with small bilateral pleural effusions and mild pulmonary vascular congestion. Anasarca. No acute abdominal or pelvic pathology demonstrated on this Limited, noncontrast CT. Electronically Signed: Javier Serrano, at 12:00 EST Tel , Service support ,
--- NOTE | 2018-10-01 10:39 | RAD_ITS ---
STUDY: X-RAY CHEST REASON FOR EXAM: Female, 82 years old. Cough TECHNIQUE: Single AP portable view of the chest. COMPARISON: 06/08/2018 FINDINGS: EKG leads overlie the chest Lungs are expanded. Chronic interstitial changes again noted in both lung leone with superimposed pulmonary vascular congestion. No organized infiltrate or effusion. Stable cardiomegaly. Normal mediastinum and arnulfo. Normal visualized pulmonary arteries. There is atherosclerotic calcification of the aortic arch with tortuosity. There are diffuse degenerative changes of the visualized thoracic spine. There is degenerative osteoarthritis of the bilateral shoulders. There is no demonstrated abnormality of the visualized soft tissue structures of the upper abdomen. RAD/Chest 1 View (Portable) IMPRESSION: Chronic interstitial changes with superimposed interstitial edema. Follow-up recommended to assure resolution Stable cardiomegaly Degenerative bony changes Electronically Signed: Fer Ge MD at 11:30 EST , Service support ,
[2018-10-01 10:57] LABS: Absolute Lymphocyte Count 1.12 X10^3/ul (0.83-4.51); Absolute Neutrophil Count 14.9 X10^3/uL (2.0-7.7); Basophil# 0.02 X10^3/uL; Basophil% 0.1 % (0-1); Eosinophil# 0.03 X10^3/uL; Eosinophils% 0.2 % (0-5); Hematocrit 35.8 % (37-47); Hemoglobin 10.7 g/dl (12.0-15.0); Lymphocyte # 1.12 X10^3/ul (4.0); Lymphocyte % 6.8 % (19-41); Mean Corp Hgb Conc 29.9 g/gl (32-36); Mean Corpuscular Hgb 28.9 pg (27.0-32.0); Mean Corpuscular Volume 96.8 fL (81-99); Mean Platelet Vol. 9.8 fl (6.2-12.0); Monocyte# 0.48 X10^3/uL; Monocyte% 2.9 % (0-10); Neutrophil % 89.8 % (47-70); Platelet Count 234 K/mm3 (150-450); RBC Distribution Width CV 16.8 % (11.6-14.6); White Blood Count 16.6 K/mm3 (4.4-11.0)
[2018-10-01 10:58] LABS: POSITIVE COUNT NO; POSITIVE DIFFERENTIAL NO; POSITIVE MORPHOLOGY NO
[2018-10-01] MEDS: Ondansetron 4 MG/2 ML Vial IV ×2 (10:59→16:13)
[2018-10-01] MEDS: 0.9% Normal Saline 1,000 ML 125 ML IV (10:59)
[2018-10-01 11:03] LABS: International Normalized Ratio 1.4; Prothrombin Time (Protime)PT. 16.8 SECONDS (11.7-14.9)
[2018-10-01 11:07] LABS: Mucous, Urine 0 SEEN /hpf (<or=2+); Red Blood Cells-Urine 0 SEEN /hpf (0-5); Squamous Epithelial Cells - UA 0 SEEN /hpf (5-10)
[2018-10-01 11:08] LABS: Color, Urine Yellow (Yellow); Glucose, Dipstick Normal (Normal); Ketone-Dipstick Negative (Negative); Leukocyte Esterase-Dipstick 100 /ul (Negative); Nitrite-Dipstick Positive (Negative); Occult Blood-Urine 10 /ul (Negative); Protein-Dipstick 30 mg/dl (Negative); Urine Bilirubin Dipstick Negative (Negative); Urine Clarity Sl. Cloudy (Clear); Urine Urobilinogen Normal (Normal)
--- NOTE | 2018-10-01 11:10 | ED.VISSUMM ---
- ER Visit Summary Date of Service: 10/01/18 Chief Complaint: Shortness of breath and hunched over History of Present Illness: The patient is a 82 F who presents from her nursing facility. History is limited. I am told that the patient is normally alert and oriented, but today she is not providing any information. The patient was found sitting on the toilet, hunched over. She appeared somewhat blue and her oxygen was low. She has been having fevers, nausea, abdominal pain, shortness of breath. She has a history of a recent skin graft to her right lower extremity. She has bilateral lower extremity edema which has been better than normal for her. She has a history of IA and coronary disease. History of CHF and COPD. History of atrial fibrillation and takes aspirin and apixaban. She has a DNR Comfort Care arrest form which is not signed by physician. Physical Examination: Temperature 100.3. 90% on room air. 100% on nasal cannula. Respiratory rate 27. Blood pressure 130/78. Patient is somnolent. Arouses to voice but only answers in very brief sentences. Head and neck atraumatic. Heart irregular and slightly tachycardic. Lungs clear throughout all leone. Abdomen soft and nontender. Lower extremity show diffuse and symmetric edema. Right foot and ankle dressing noted. Patient moves all extremities. Cranial nerves grossly intact but exam is limited due to lack of cooperation. Test Results: EKG shows atrial fibrillation at a rate of 103. No sign of acute ischemia or infarction pattern. Laboratory studies, chest x-ray, CT abdomen pending at the time of this dictation. Emergency Department Course and Treatment: Patient was placed on a monitor. She was placed on oxygen by nasal cannula. Treated with fluids and Zofran. Patient will likely need admission. I am concerned for sepsis, respiratory and cardiac pathology, GI and pathology primarily. Will monitor. White count 16.6 and hemoglobin 10.7. Metabolic panel unremarkable. Coags unremarkable. Urinalysis shows signs of infection. Cultures are pending. Troponin normal. BNP 445 and lactate 1.4. Chest x-ray showed chronic changes and cardiomegaly. CT abdomen was limited but showed nothing acute. Patient was treated with Rocephin and Lasix. She is doing well on nasal cannula. We are having trouble getting good pulse ox readings, but when we get a good reading she is 95-100% on 4 L. Patient has some continued complaints of nausea but no vomiting. Otherwise she is stable. Hospitalist was contacted for admission to PCU. Treatment Plan: As above Disposition: PCU Impression: 1. UTI 2. Sepsis 3. CHF This note was generated with [employer] dictation software. It may contain incorrect words, spelling, and punctuation that were not noted in review of the chart prior to signing ED Disposition - Plan for ED Patient: Chief Complaint: Shortness of Breath Referrals: Mani Myles MD [Primary Care Provider] -
[2018-10-01 11:13] LABS: ALB/GLOB Ratio 0.5 RATIO (0.9-2.4); AST(SGOT) 23 U/L (15-37); Alanine Aminotransfer ALT/SGPT 9 U/L (13-56); Albumin, Serum 2.7 g/dL (3.2-5.0); Alkaline Phosphatase 88 U/L (45-117); Anion Gap 5 (5-15); BUN 13 mg/dL (7-18); BUN/Creat Ratio 14.8 RATIO (10-20); Calcium,Total 8.4 mg/dL (8.5-10.1); Chloride 100 mmol/L (98-107); Creatinine, Serum 0.88 mg/dL (0.55-1.02); EST Glomerular Filtration Rate 65 mL/min (>60); Est Glom Filt Rate - Afr Amer 79 mL/min (>60); Estimated Creatinine Clearance 45.12 ml/min; Globulin 5.6 g/dL (2.2-4.2); Glucose 94 mg/dL (74-106); Lipase 50 U/L (73-393); Potassium 4.6 mmol/L (3.5-5.1); Protein, Total 8.3 g/dL (6.4-8.2); Sodium Level 136 mmol/L (136-145)
[2018-10-01 11:14] LABS: Bacteria 3+ /hpf (None Seen); White Blood Cells 50-100 SEEN /hpf (0-5)
[2018-10-01 11:32] LABS: Lactic Acid 1.4 mmol/L (0.4-2.0)
[2018-10-01] MEDS: Ceftriaxone 1 GM/50 ML BAG IV (12:59)
[2018-10-01] MEDS: Furosemide 40 MG/4 ML Vial IV (13:01)
--- NOTE | 2018-10-01 13:05 | HP.PCM_ITS ---
Problem List (1) Coronary artery disease Status: Chronic (2) Atrial fibrillation Status: Chronic (3) COPD (chronic obstructive pulmonary disease) Status: Chronic (4) GERD (gastroesophageal reflux disease) Status: Chronic (5) Congestive heart failure Status: Chronic (6) History of myocardial infarction Status: Chronic (7) Hypertension Status: Chronic Qualifiers: (8) Hypothyroidism Status: Chronic (9) Hypercholesterolemia Status: Chronic (10) Osteoarthritis (arthritis due to wear and tear of joints) Status: Chronic (11) Rheumatoid arthritis Status: Chronic History of Present Illness Date of Admission: 10/01/18 Chief Complaint: Shortness of breath, lethargy. The patient is a 82 year old F with multiple medical comorbidities as mentioned above transferred from the intermediate because of shortness of breath, lethargy and she was found hunched over. At this time, patient is alert, intermittently lethargic and she is disoriented. She is unable to provide good history. She complains of worsening shortness of breath. She complains of pains all over. She has a history of chronic atrial fibrillation she has been on Eliquis for anticoagulation but she is not on any medication for rate control. She had a h istory of chronic diastolic CHF with chronic bilateral leg edema and she has been on Lasix. She had a history of chronic respiratory failure and she has been on oxygen at the intermediate. She states that she is usually on oxygen at 2-3 L. She has a history of hypothyroidism and she has been on levothyroxine and her most recent TSH was 3.06 on July, and she has been stable. In the emergency room, she had a spike of low-grade fever, was tachypneic, short of breath and pulse ox was 98% on 4 L. Her routine blood work was remarkable for leukocytosis, chronic anemia, otherwise normal. Lactic acid was normal. EKG revealed atrial fibrillation, rate has been around 100, no acute ischemic changes. Troponin is negative. LFT and lipase were unremarkable. BNP was elevated. CT scan abdomen and pelvis without contrast revealed cardiomegaly and small bilateral pleural effusion and size consistent with pulmonary vascular congestion suggestive of CHF. No acute intra-abdominal or pelvic pathology identified. Chest x-ray revealed cardiomegaly and bilateral pulmonary vascular congestion. Urine analysis revealed cloudy urine, positive for nitrite and leukocyte esterase, there was 50-100 WBCs and 3+ bacteria. She is being admitted for acute cystitis with sepsis as well as acute on chronic diastolic CHF and acute on chronic hypoxic respiratory failure. 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) Vitamin D deficiency (Chronic) Neuropathy (Chronic) Malnutrition (Chronic) Leg ulcer, left (Chronic) Lymphedema of lower extremity (Chronic) Congestive heart failure (Chronic) History of myocardial infarction (Chronic) Incontinence of urine (Chronic) Hypertension (Chronic) Morbid obesity (Chronic) Hypothyroidism (Chronic) Hypercholesterolemia (Chronic) Osteoarthritis (arthritis due to wear and tear of joints) (Chronic) Rheumatoid arthritis (Chronic) Allergies No Known Allergies Allergy (Verified 06/05/18 13:06) Home Medications: Ambulatory Orders Medication Instructions Recorded Acetaminophen [Pain Relief Extra 1,000 mg PO Q8H PRN PRN 04/25/17 Strength] Aspirin [Aspir-Low] 81 mg PO QHS 04/25/17 Gabapentin [Neurontin] 300 mg PO BIDCM 04/25/17 Levothyroxine [Synthroid] 100 mcg PO DAILY@0600 08/01/17 Ondansetron [Zofran Odt] 4 mg PO Q8H PRN PRN #90 tab 06/14/18 Pantoprazole Sodium [Protonix] 20 mg PO DAILY tablet 06/14/18 Apixaban [Eliquis] 5 mg PO BID 10/01/18 Ergocalciferol (Vitamin D2) 50,000 unit PO QWEEK 10/01/18 [Drisdol] Furosemide [Lasix] 40 mg PO DAILY 10/01/18 Hydrocodone Bitart/Apap 5-325 1 tablet PO Q8H PRN PRN 10/01/18 [[place] 5MG-325MG] L. Rhamnosus GG/Inulin [Culturelle 1 each PO DAILY 10/01/18 Capsule] Multivitamin [Multiple Vitamins] 1 each PO DAILY 10/01/18 Polyethylene Glycol 3350 [Miralax] 17 gm PO DAILY 10/01/18 Temazepam [Restoril] 7.5 mg PO DAILY 10/01/18 Surgical History: herniorrhaphy, hysterectomy, total knee arthroplasty - Bilateral., tonsillectomy, - - Cardiac stents x 2, gastric bypass surgery, right ankle ORIF. Psychiatric History: No pertinent psych hx ORDNANCE OFFICER History: No pertinent ORDNANCE OFFICER history Lives: Long Term Smoking Status: Unknown if ever smoked Alcohol: None Drugs: None - *Family History Maternal History Items: - - Patient's father in his 70s with a history of arthritis. The patient's mother at the age of 90 with a history of arthritis. Paternal History Items: Heart Disease Review of Systems Constitutional: Reports: Weakness, Fatigue. Denies: Anorexia, Fever Eyes: Denies: Blurred vision, Double vision, Drainage, Redness HEENT: Denies: Difficulty Hearing, Ear Pain, Eye Pain, Nasal Congestion, Sore Throat Cardiovascular: Denies: Chest Pain, Chest Pressure, Heaviness, Palpitations, Syncope Respiratory: Reports: Shortness of Breath. Denies: Cough, Hemoptysis, Sputum production, Wheezing Gastrointestinal: Denies: Abdominal Pain, Constipation, Diarrhea, Nausea, Vomiting Genitourinary: Denies: Dysuria, Frequency, Hematuria Musculoskeletal: Reports: Leg Pain. Denies: Arm Pain, Back Pain, Foot Pain Skin: Denies: Dryness, Rash Neurological: Reports: Confusion. Denies: Balance problems, Double vision, Change in Speech, Headaches, Incoordination, Numbness Psychiatric: Denies: Anxiety, Depression Endocrine: Denies: Change in Body Habitus, Polydipsia VTE Information - Inpt Only VTE Present on Admission: No VTE Mechan Device Prophylaxis: None VTE Pharm Prophylaxis ordered?: No - Physical Exam General: Alert, Cooperative, Confused, Disoriented, Lethargic, - - Moderately short of breath. HEENT: Atraumatic, PERRLA, EOMI, Normocephalic Oral: Moist Mucosa, No Gingival or Mucosal Lesions/ Ulcerations Neck: Supple, No JVD, Negative Carotid Bruits, Trachea Midline, Thyroid Normal Size and Texture Lungs: No wheeze, Diminished, Rales, Short of Breath, Tachypneic, - - Decreased breath sounds bilateral, bilateral coarse crackles. Cardiovascular: Normal S1, Normal S2, No murmurs, PMI Normal, Irregular Rate Abdomen: Bowel Sounds Present, Soft, Non Tender, Non-Distended, No Hepato- splenomegaly, Obese Extremities: No clubbing, No cyanosis, Edema - Nonpitting edema. Lymphedema. Skin: No rashes, No breakdown Lymphatic: No Cervical, Supraclavicular, or Inguinal Adenopathy Neurological: Cranial nerves II-XII grossly intact, Motor Exam 5/5 strength throughout Psych/Mental Status: Flat Affect Vital Signs Temp Pulse Resp BP Pulse Ox 99.0 F 95 24 H 118/78 98 10/01/18 12:12 10/01/18 12:12 10/01/18 12:12 10/01/18 12:12 10/01/18 12:12 Oxygen Flow Rate (L/min) 4 Oxygen Delivery Method Nasal Cannula Weight: 235 lb 14.314 oz Body Mass Index (BMI) 39.2 Microbiology Past 72 Hours 10/01/18 11:41 Influenza Types A,B Direct FA (THEO) - Final Mucosa - Nose Laboratory Tests Past 24 Hrs 10/01/18 10/01/18 10/01/18 10:40 10:40 10:40 WBC 16.6 H RBC 3.70 L Hgb 10.7 L Hct 35.8 L MCV 96.8 MCH 28.9 MCHC 29.9 L RDW 16.8 H RDW Differential 58.0 H Plt Count 234 MPV 9.8 Immature Gran % (Auto) 0.200 Neut % (Auto) 89.8 H Lymph % (Auto) 6.8 L [place] % (Auto) 2.9 Eos % (Auto) 0.2 Baso % (Auto) 0.1 Absolute Neuts (auto) 14.9 H Absolute Lymphs (auto) 1.12 Total Counted Not Reportable PT 16.8 H INR 1.4 APTT 40.0 H Sodium 136 Potassium 4.6 Chloride 100 Carbon Dioxide 31.0 Anion Gap 5 BUN 13 Creatinine 0.88 Estim Creat Clear Calc 45.12 Est GFR (MDRD) Af Amer 79 Est GFR (MDRD) Non-Af 65 BUN/Creatinine Ratio 14.8 Glucose 94 Lactic Acid Calcium 8.4 L Total Bilirubin 0.70 AST 23 ALT 9 L Alkaline Phosphatase 88 Troponin I < 0.015 B-Natriuretic Peptide Total Protein 8.3 H Albumin 2.7 L Globulin 5.6 H Albumin/Globulin Ratio 0.5 L Lipase 50 L Urine Color Urine Clarity Urine pH Ur Specific Errol Urine Protein Urine Glucose (UA) Urine Ketones Urine Occult Blood Urine Nitrite Urine Bilirubin Urine Urobilinogen Ur Leukocyte Esterase Urine RBC Urine WBC Ur Squamous Epith Cells Urine Bacteria Urine Mucus 10/01/18 10/01/18 10/01/18 10:40 10:40 11:00 WBC RBC Hgb Hct MCV MCH MCHC RDW RDW Differential Plt Count MPV Immature Gran % (Auto) Neut % (Auto) Lymph % (Auto) [place] % (Auto) Eos % (Auto) Baso % (Auto) Absolute Neuts (auto) Absolute Lymphs (auto) Total Counted PT INR APTT Sodium Potassium Chloride Carbon Dioxide Anion Gap BUN Creatinine Estim Creat Clear Calc Est GFR (MDRD) Af Amer Est GFR (MDRD) Non-Af BUN/Creatinine Ratio Glucose Lactic Acid 1.4 Calcium Total Bilirubin AST ALT Alkaline Phosphatase Troponin I B-Natriuretic Peptide 445.0 H Total Protein Albumin Globulin Albumin/Globulin Ratio Lipase Urine Color Yellow Urine Clarity Sl. Cloudy Urine pH 7.0 Ur Specific Errol 1.010 Urine Protein 30 H Urine Glucose (UA) Normal Urine Ketones Negative Urine Occult Blood 10 H Urine Nitrite Positive H Urine Bilirubin Negative Urine Urobilinogen Normal Ur Leukocyte Esterase 100 H Urine RBC 0 SEEN Urine WBC 50-100 SEEN Ur Squamous Epith Cells 0 SEEN Urine Bacteria 3+ Urine Mucus 0 SEEN Clinical Impression(s) from Imaging Studies Abdomen/Pelvis CT 10/01/18 10:39 IMPRESSION: Cardiomegaly with small bilateral pleural effusions and mild pulmonary vascular congestion. Anasarca. No acute abdominal or pelvic pathology demonstrated on this Limited, noncontrast CT. Electronically Signed: Javier Serrano, at 12:00 EST Tel , Service support , Chest X-Ray 10/01/18 10:39 IMPRESSION: Chronic interstitial changes with superimposed interstitial edema. Follow-up recommended to assure resolution Stable cardiomegaly Degenerative bony changes Electronically Signed: Fer Ge MD at 11:30 EST , Service support , Assessment/Plan This is an 82 years old female patient transferred from intermediate because of shortness of breath, lethargy and she was found to have acute cystitis with sepsis as well as acute on chronic diastolic CHF complicated with acute on chronic hypoxic respiratory failure. #1 acute cystitis/sepsis: Urine is reviewed. She does have leukocytosis, low- grade fever and she is dyspneic and tachypneic as well as hypoxic. Lactic acid was normal. Blood pressure and heart rate are stable. Plan: Admit to PCU, cardiac monitoring, blood culture, urine culture, IV Rocephin, and put up a chart, repeat CBC and BMP tomorrow morning, PT OT evaluation and treatment. #2 acute on chronic diastolic CHF: This is based on worsening shortness of breath, increasing oxygen requirement, chest x-ray findings and increased BNP. EKG reviewed as above. Troponin is negative. Plan: Fluid restriction to start 1500 cc daily, continue oxygen, 2D echocardiogram, IV Lasix twice daily,. Although she does have a history of chronic CHF, she is not on beta-blockers or ANKIT inhibitors. #3 acute on chronic hypoxic respiratory failure: According to the patient, she is on oxygen at the intermediate at 2-3 L. At this time, she is up to 4 L. She looks dyspneic and tachypneic. It is secondary to acute on chronic CHF. Plan: IV diuresis, bronchodilators, incentive spirometer, chest physical therapy. #4 chronic atrial fibrillation: Rate has been around 90, blood pressure stable. Continue Eliquis for anticoagulation, she is not on any medication for rate control. Plan for 2D echocardiogram as above. #5 hypertension: Blood pressure stable, she was given IV Lasix for diuresis. #6 hypothyroidism: Continue levothyroxine, TSH was normal on July,. #7 COPD: DuoNeb every 6 hours, albuterol as needed, chest physical therapy, incentive spirometer. #8 GERD: Continue Protonix. #10 DVT prophylaxis: Continue Eliquis. This note was generated with [employer] software. It may contain incorrect words, spelling, and punctuation that were not noted in checking the note before signing. Code Visit Inpatient E&M: 08597 Init Hosp L3
--- NOTE | 2018-10-01 13:25 | NURSING ---
pt mouth breathing and spo2 80's. 100% nrb on at 6l and sats now 99%. water given for request
--- NOTE | 2018-10-01 14:24 | ECHOD_ITS ---
Reason For Study: CHF Procedure This was a 2D Doppler, Color Flow transthoracic echocardiogram. Exam performed portable in patient room. Left Ventricle Normal LV size. Moderate concentric left ventricular hypertrophy. D shaped septum in systole and diastole. Left ventricular systolic function is normal. The estimated ejection fraction is 65 %. Transmitral and pulmonary venous doppler flow suggestive of impaired relaxation of left ventricle. Stage 3 diastolic dysfunction. No regional wall motion abnormalities noted. Right Ventricle Normal RV size. Normal systolic function. Atria The left atrium is moderately enlarged. The right atrium is mildly enlarged. Probable chiari network. Mitral Valve Bileaflet diffuse mitral valve thickening. Tricuspid Valve Normal tricuspid valve. Moderately severe (3+) tricuspid valve insufficiency. Pulmonary artery systolic pressure is 75 mmHg. Severe pulmonary hypertension. Aortic Valve Trisinus/trileaflet aortic valve. Mild focal aortic valve calcification. Mobile lambls excrescence on non coronary cusp. Mild aortic stenosis. Pulmonic Valve Normal pulmonic valve. Mild-Moderate (1-2+) pulmonic valve insufficiency. Great Vessels Calcified aortic root. Mildly dilated aortic root. The pulmonary artery is normal size. Inferior vena cava collapse with respiration. Pericardium/Pleural No pericardial effusion. MMode/2D Measurements & Calculations LVIDd: 4.1 cm IVSd: 1.5 cm LVOT diam: 2.0 cm LVIDs: 2.3 cm LVPWd: 1.6 cm LVOT area: 3.2 cm2 RVDd: 4.5 cm FS: 42.7 % Ao root diam: 4.0 cm LAV(MOD-bp): 103.3 ml LVAd ap4: 18.2 cm2 LAV(MOD-bp) Indexed: 48.7 ml/m2 EDV(MOD-sp4): 40.0 ml LAV(MOD-sp2): 113.4 ml EDV(sp4-el): 41.1 ml LAV(MOD-sp4): 93.6 ml LVAs ap4: 7.5 cm2 ESV(MOD-sp4): 8.8 ml ESV(sp4-el): 8.8 ml EF(MOD-sp4): 77.9 % EF(sp4-el): 78.7 % SV(MOD-sp4): 31.2 ml SV(sp4-el): 32.3 ml LA A4 area: 29.9 cm2 LA dimension(2D): 5.2 cm RA A4 area: 24.4 cm2 Doppler Measurements & Calculations MV E max kamran: 96.6 cm/sec Lat Peak E' Kamran: 9.6 cm/sec Med Peak E' Kamran: 5.8 cm/sec MV A max kamran: 23.1 cm/sec E/E' lat: 10.1 E/E' med: 16.6 MV E/A: 4.2 Ao V2 max: 221.2 cm/sec LV V1 max: 134.5 cm/sec SV(LVOT): 83.1 ml Ao max P.6 mmHg LV V1 max P.3 mmHg Ao V2 mean: 142.7 cm/sec LV V1 mean P.7 mmHg Ao mean P.3 mmHg LV V1 mean: 91.7 cm/sec Ao V2 VTI: 43.2 cm LV V1 VTI: 26.3 cm GAUTAM(I,D): 1.9 cm2 GAUTAM(V,D): 1.9 cm2 PA V2 max: 95.6 cm/sec PI end-d kamran: 156.1 cm/sec TR max kamran: 415.9 cm/sec TR max P.2 mmHg Interpretation Summary Normal LV size. Moderate concentric left ventricular hypertrophy. Left ventricular systolic function is normal. The estimated ejection fraction is 65 %. Stage 3 diastolic dysfunction. Mild focal aortic valve calcification. Mobile lambls excrescence on non coronary cusp - unlikely to be vegetation Ordering Physician: Olivia Lees Referring Physician: Mani Myles Performed By: Sharlene Doss, AMI, RVT
[2018-10-01] MEDS: Acetaminophen 325 MG Tablet 650 MG PO ×2 (16:13→23:19)
[2018-10-01] MEDS: APIXABAN 5 MG TABLET PO (18:15)
[2018-10-01] MEDS: Gabapentin 300 MG Capsule PO (18:15)
[2018-10-01] MEDS: Ipratropium/Albuterol Sulfate 3 ML AMPUL.NEB INHALATION (20:10)
[2018-10-01] MEDS: Aspirin E.C. 81 MG Tablet PO (22:01)
[2018-10-02] VITALS (18 sets, daily range): BP systolic 100–118; BP diastolic 53–76; PULSE 63–99; RESP 16–20; TEMP 36.7–37.1; O2SAT 92–97
[2018-10-02] MEDS: Ipratropium/Albuterol Sulfate 3 ML AMPUL.NEB INHALATION ×4 (00:40→19:38)
[2018-10-02] MEDS: Ketorolac 15 MG/ML Vial IV (04:22)
[2018-10-02] MEDS: Levothyroxine 100 MCG Tablet PO (06:21)
[2018-10-02 06:42] LABS: Absolute Lymphocyte Count 2.09 X10^3/ul (0.83-4.51); Absolute Neutrophil Count 9.1 X10^3/uL (2.0-7.7); Basophil# 0.01 X10^3/uL; Basophil% 0.1 % (0-1); Eosinophil# 0.02 X10^3/uL; Eosinophils% 0.2 % (0-5); Hematocrit 30.4 % (37-47); Hemoglobin 8.8 g/dl (12.0-15.0); Lymphocyte # 2.09 X10^3/ul (4.0); Lymphocyte % 17.9 % (19-41); Mean Corp Hgb Conc 28.9 g/gl (32-36); Mean Corpuscular Hgb 27.6 pg (27.0-32.0); Mean Corpuscular Volume 95.3 fL (81-99); Mean Platelet Vol. 9.3 fl (6.2-12.0); Monocyte# 0.49 X10^3/uL; Monocyte% 4.2 % (0-10); Neutrophil # 9.07 X10^3/uL (2.7-7.7); Neutrophil % 77.4 % (47-70); Platelet Count 178 K/mm3 (150-450); RBC Distribution Width CV 16.9 % (11.6-14.6); RBC Distribution Width SD 58.4 fl (35.1-43.9); Red Blood Count 3.19 M/mm3 (4.2-5.4); White Blood Count 11.7 K/mm3 (4.4-11.0)
[2018-10-02 06:43] LABS: POSITIVE COUNT NO; POSITIVE DIFFERENTIAL NO; POSITIVE MORPHOLOGY NO
[2018-10-02 06:53] LABS: Anion Gap 6 (5-15); BUN 17 mg/dL (7-18); BUN/Creat Ratio 17.1 RATIO (10-20); Chloride 100 mmol/L (98-107); EST Glomerular Filtration Rate 57 mL/min (>60); Est Glom Filt Rate - Afr Amer 69 mL/min (>60); Glucose 81 mg/dL (74-106); Potassium 4.2 mmol/L (3.5-5.1); Sodium Level 139 mmol/L (136-145)
[2018-10-02] MEDS: Acetaminophen 325 MG Tablet 650 MG PO (08:30)
[2018-10-02] MEDS: APIXABAN 5 MG TABLET PO ×2 (08:30→16:29)
[2018-10-02] MEDS: Gabapentin 300 MG Capsule PO ×2 (08:30→16:29)
[2018-10-02] MEDS: Ceftriaxone 1 GM/50 ML BAG IV (10:15)
[2018-10-02] MEDS: Furosemide 40 MG/4 ML Vial IV ×2 (10:16→18:54)
[2018-10-02] MEDS: Pantoprazole Sodium 20 MG Tablet PO (10:16)
[2018-10-02] MEDS: Ondansetron 4 MG/2 ML Vial IV ×2 (10:16→18:52)
[2018-10-02] MEDS: Polyethylene Glycol 3350 17 GM PACKET PO (10:16)
[2018-10-02] MEDS: HYDROcodone Bitartrate/Apap 5/325 Tablet PO ×2 (12:31→22:17)
--- NOTE | 2018-10-02 13:49 | CASEMGMT ---
KUMAR spoke with Helena at [facility] and patient is there skilled. SW faxed her updates on patient. Plan: Return to [facility] when ready. Loraine ORDONEZ MSW
--- NOTE | 2018-10-02 15:38 | PN_ITS ---
Subjective: Pt resting comfortably in bed. Nonproductive cough. Mild dyspnea. Stable on 2 lpm o2. Uses 2-4 prn at home. No fever / chills. - Physical Exam General: Alert, Oriented x3, Cooperative HEENT: Atraumatic, PERRLA, EOMI, Normocephalic Neck: Supple, No JVD, Negative Carotid Bruits Lungs: Rales Cardiovascular: Regular rate, No murmurs Abdomen: Bowel Sounds Present, Soft, Non Tender Extremities: No edema, Capillary Refill Less than 3 Seconds Skin: No rashes, No breakdown Musculoskeletal: No Tenderness to Palpation of Joints or Extremities Neurological: Cranial nerves II-XII grossly intact Psych/Mental Status: Normal Affect, Appropriate, Alert and oriented to time, place, person, mood and affect Vital Signs Temp Pulse Resp BP Pulse Ox 98.1 F 84 20 H 102/58 L 92 10/02/18 12:51 10/02/18 13:51 10/02/18 13:51 10/02/18 12:51 10/02/18 13:51 Oxygen Flow Rate (L/min) 2 Oxygen Delivery Method Nasal Cannula Weight: 222 lb 0.088 oz Body Mass Index (BMI) 37.0 Intake and Output for Last 24 Hours 09/30/18 10/01/18 10/02/18 23:59 23:59 23:59 Intake Total 290 / 290 581.9 / 581.9 Output Total 885 / 885 195 / 195 Balance -595 / -595 386.9 / 386.9 Microbiology Past 72 Hours 10/01/18 11:50 Urine Culture - Preliminary Urine Catheter - Vitale 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 10/01/18 11:41 Influenza Types A,B Direct FA (THEO) - Final Mucosa - Nose Laboratory Tests Past 24 Hrs 10/02/18 10/02/18 10/02/18 06:20 06:20 11:50 WBC 11.7 H RBC 3.19 L Hgb 8.8 L Hct 30.4 L MCV 95.3 MCH 27.6 MCHC 28.9 L RDW 16.9 H RDW Differential 58.4 H Plt Count 178 MPV 9.3 Immature Gran % (Auto) 0.200 Neut % (Auto) 77.4 H Lymph % (Auto) 17.9 L [place] % (Auto) 4.2 Eos % (Auto) 0.2 Baso % (Auto) 0.1 Absolute Neuts (auto) 9.1 H Absolute Lymphs (auto) 2.09 Total Counted Not Reportable Sodium 139 Potassium 4.2 Chloride 100 Carbon Dioxide 33.0 H Anion Gap 6 BUN 17 Creatinine 1.00 Estim Creat Clear Calc 38.10 Est GFR (MDRD) Af Amer 69 Est GFR (MDRD) Non-Af 57 L BUN/Creatinine Ratio 17.1 Glucose 81 Calcium 8.0 L S.aureus Protein A PCR Pending MRSA (PCR) Pending Medical Necessity - Tobacco Use Smoking Status: Unknown if ever smoked Assessment/Plan 1. Acute sepsis / UTI - GNR on culture. WBC improved. No further fever. Continue rocephin. 2. Acute on chronic diastolic CHF - conitnue lasix, fluid restriction, ANKIT wraps. 3. Acute on chronic hypoxic resp failure - back to baseline now. 12/02 #2. 4. Chronic Afib - stable. Eliquis. 5. HTN - stable 6. Hypothyroidism - TSH normal. continue synthroid 7. COPD - stable. No wheezing. PRN aerosols, incentive spirometer. 8. GERD - protonix 9. CHronic LE wounds - pt states that her wound center physician thinks these are worsening. Wound care consulted. Cultures taken. DVT ppx: adama LAUREANO planning: PTOT. From SNF. This patient was seen by Floyd Smith PA-C under the supervision of Dr. Gutiérrez
--- NOTE | 2018-10-02 15:49 | NURSING ---
wound photo: right posterolateral lower leg
--- NOTE | 2018-10-02 15:49 | NURSING ---
wound photo: left foot
[2018-10-02 16:11] LABS: Probe Check PASS; Staph aureus DNA By PCR POSITIVE (Negative)
[2018-10-02 16:13] LABS: M R Staph aureus DNA By PCR POSITIVE (Negative)
[2018-10-02] MEDS: 0.9% NaCl Peripheral Flush Adult/Peds IV ×2 (16:31→18:54)
--- NOTE | 2018-10-02 18:49 | PHA.PHARE_ITS ---
Consult Pharmacy has been consulted to manage selected antiobiotic: Vancomycin Type of Consult: New start Suspected Infection: Sepsis Labs: Sodium 139 mmol/L (136-145) 10/02/18 06:20 Potassium 4.2 mmol/L (3.5-5.1) 10/02/18 06:20 Chloride 100 mmol/L (98-107) 10/02/18 06:20 Carbon Dioxide 33.0 mmol/L (21.0-32.0) H 10/02/18 06:20 Anion Gap 6 (5-15) 10/02/18 06:20 BUN 17 mg/dL (7-18) 10/02/18 06:20 Creatinine 1.00 mg/dL (0.55-1.02) 10/02/18 06:20 Est GFR (MDRD) Af Amer 69 mL/min (>60) 10/02/18 06:20 Est GFR (MDRD) Non-Af 57 mL/min (>60) L 10/02/18 06:20 BUN/Creatinine Ratio 17.1 RATIO (10-20) 10/02/18 06:20 Glucose 81 mg/dL (74-106) 10/02/18 06:20 Microbiology: Microbiology 10/01/18 11:50 Urine Catheter - Vitale Urine Culture - Preliminary GNR lactose rn cardiac rehab 10/01/18 11:41 Mucosa - Nose Influenza Types A,B Direct FA (THEO) - Final Weight used for dosin lb 0.088 oz Estimated Creatinine Clearance: 38.1 Goal Trough: 15-20 mcg/mL Pharmacy Plan for Drug Dosing: Vancomycin loading dose of 2000mg given. Calculated dose to maintain trough of 15-20 is 1500mg q24h Trough will be obtained prior to the 3rd dose Pharmacy Service will continue to monitor and adjust dosing as required.
[2018-10-02] MEDS: Aspirin E.C. 81 MG Tablet PO (22:17)
[2018-10-02] MEDS: Menthol/Lanolin/Calamine/Znox 113 GM Tube 1 APPLIC TOPICAL (22:18)
[2018-10-02] MEDS: Zolpidem Tartrate 5 MG Tablet PO (23:54)
[2018-10-03] VITALS (17 sets, daily range): BP systolic 102–141; BP diastolic 61–81; PULSE 68–97; RESP 18–22; TEMP 36.2–36.8; O2SAT 93–98
[2018-10-03] MEDS: Acetaminophen 325 MG Tablet 650 MG PO ×3 (03:17→15:30)
[2018-10-03] MEDS: Levothyroxine 100 MCG Tablet PO (05:37)
[2018-10-03] MEDS: Ondansetron 4 MG/2 ML Vial IV ×3 (06:05→21:30)
[2018-10-03 06:57] LABS: Absolute Lymphocyte Count 1.58 X10^3/ul (0.83-4.51); Absolute Neutrophil Count 5.3 X10^3/uL (2.0-7.7); Basophil# 0.02 X10^3/uL; Basophil% 0.3 % (0-1); Eosinophil# 0.16 X10^3/uL; Eosinophils% 2.2 % (0-5); Hematocrit 30.1 % (37-47); Hemoglobin 8.8 g/dl (12.0-15.0); Lymphocyte # 1.58 X10^3/ul (4.0); Lymphocyte % 21.2 % (19-41); Mean Corp Hgb Conc 29.2 g/gl (32-36); Mean Corpuscular Hgb 28.1 pg (27.0-32.0); Mean Corpuscular Volume 96.2 fL (81-99); Monocyte# 0.33 X10^3/uL; Monocyte% 4.4 % (0-10); Neutrophil # 5.34 X10^3/uL (2.7-7.7); Neutrophil % 71.8 % (47-70); Platelet Count 189 K/mm3 (150-450); RBC Distribution Width CV 16.9 % (11.6-14.6); RBC Distribution Width SD 56.7 fl (35.1-43.9); Red Blood Count 3.13 M/mm3 (4.2-5.4); White Blood Count 7.4 K/mm3 (4.4-11.0)
[2018-10-03] MEDS: Ipratropium/Albuterol Sulfate 3 ML AMPUL.NEB INHALATION ×3 (06:57→23:30)
[2018-10-03 06:59] LABS: Anion Gap 6 (5-15); BUN 20 mg/dL (7-18); Calcium,Total 7.9 mg/dL (8.5-10.1); Chloride 100 mmol/L (98-107); Creatinine, Serum 1.11 mg/dL (0.55-1.02); EST Glomerular Filtration Rate 50 mL/min (>60); Est Glom Filt Rate - Afr Amer 61 mL/min (>60); Estimated Creatinine Clearance 35.77 ml/min; Glucose 81 mg/dL (74-106); Potassium 4.2 mmol/L (3.5-5.1); Sodium Level 139 mmol/L (136-145)
[2018-10-03 07:01] LABS: POSITIVE COUNT NO; POSITIVE DIFFERENTIAL NO; POSITIVE MORPHOLOGY NO
[2018-10-03] MEDS: APIXABAN 5 MG TABLET PO ×2 (08:43→18:03)
[2018-10-03] MEDS: Furosemide 40 MG/4 ML Vial IV ×3 (08:43→21:30)
[2018-10-03] MEDS: Menthol/Lanolin/Calamine/Znox 113 GM Tube 1 APPLIC TOPICAL ×2 (08:43→23:38)
[2018-10-03] MEDS: Gabapentin 300 MG Capsule PO ×2 (08:43→18:03)
[2018-10-03] MEDS: Ceftriaxone 1 GM/50 ML BAG IV (08:44)
[2018-10-03] MEDS: Polyethylene Glycol 3350 17 GM PACKET PO (08:44)
[2018-10-03] MEDS: Pantoprazole Sodium 20 MG Tablet PO (08:44)
[2018-10-03] MEDS: 0.9% NaCl Peripheral Flush Adult/Peds IV ×3 (08:45→21:30)
--- NOTE | 2018-10-03 13:58 | PN_ITS ---
Subjective: Pt somewhat SOB and with nonproductive cough. No further fevers or chills. O2 requirement is c/w home O2 use. Vitale in place no discomfort. - Physical Exam General: Alert, Oriented x3, Cooperative HEENT: Atraumatic, PERRLA, EOMI, Normocephalic Neck: Supple, No JVD, Negative Carotid Bruits Lungs: Rales Cardiovascular: Regular rate, No murmurs Abdomen: Bowel Sounds Present, Soft, Non Tender Extremities: No edema, Capillary Refill Less than 3 Seconds Skin: No rashes, No breakdown Musculoskeletal: No Tenderness to Palpation of Joints or Extremities Neurological: Cranial nerves II-XII grossly intact Psych/Mental Status: Normal Affect, Appropriate, Alert and oriented to time, place, person, mood and affect Vital Signs Temp Pulse Resp BP Pulse Ox 97.2 F L 84 18 106/65 94 10/03/18 08:40 10/03/18 11:00 10/03/18 08:40 10/03/18 08:40 10/03/18 08:40 Oxygen Flow Rate (L/min) 3 Oxygen Delivery Method Nasal Cannula Weight: 225 lb 4.999 oz Body Mass Index (BMI) 37.0 Intake and Output for Last 24 Hours 10/01/18 10/02/18 10/03/18 23:59 23:59 23:59 Intake Total 290 / 290 1736.9 / 1736.9 630 / 630 Output Total 885 / 885 1020 / 1020 825 / 825 Balance -595 / -595 716.9 / 716.9 -195 / -195 Microbiology Past 72 Hours 10/01/18 11:45 Blood Culture - Preliminary Blood Culture (Wb) - Anticubital Left No growth in 48 hours. 10/01/18 10:40 Blood Culture - Preliminary Blood Culture (Wb) - Anticubital Right No growth in 48 hours. 10/02/18 11:50 Gram Stain - Final Wound - Leg, Right Wound Culture - Preliminary GNR Poss Pseudomonas sp Proteus sp. 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 10/01/18 11:50 Urine Culture - Final Urine Catheter - Vitale Escherichia coli 10/01/18 11:41 Influenza Types A,B Direct FA (THEO) - Final Mucosa - Nose Laboratory Tests Past 24 Hrs 10/02/18 10/03/18 10/03/18 11:50 06:10 06:10 WBC 7.4 RBC 3.13 L Hgb 8.8 L Hct 30.1 L MCV 96.2 MCH 28.1 MCHC 29.2 L RDW 16.9 H RDW Differential 56.7 H Plt Count 189 MPV 10.0 Immature Gran % (Auto) 0.100 Neut % (Auto) 71.8 H Lymph % (Auto) 21.2 [place] % (Auto) 4.4 Eos % (Auto) 2.2 Baso % (Auto) 0.3 Absolute Neuts (auto) 5.3 Absolute Lymphs (auto) 1.58 Total Counted Not Reportable Sodium 139 Potassium 4.2 Chloride 100 Carbon Dioxide 33.0 H Anion Gap 6 BUN 20 H Creatinine 1.11 H Estim Creat Clear Calc 35.77 Est GFR (MDRD) Af Amer 61 Est GFR (MDRD) Non-Af 50 L BUN/Creatinine Ratio 18.0 Glucose 81 Calcium 7.9 L S.aureus Protein A PCR POSITIVE H MRSA (PCR) POSITIVE H Medical Necessity - Tobacco Use Smoking Status: Unknown if ever smoked Assessment/Plan 1. Acute sepsis 2/2 UTI - Ecoli on culture. WBC improved. No further fever. Rocephin changed due to wound cultures. 2. Chronic LE wounds - pt states that her wound center physician thinks these are worsening. Wound care consulted. Cultures taken and demonstrate + MRSA Screen, culture showed pseudmonas, proteus, GNR. ID consulted. Abx escalated to vanc/zosyn. 3. Acute on chronic diastolic CHF - conitnue lasix, fluid restriction, ANKIT wraps. Coarse rales on exam. Needs more diuresis - poor output, increase Lasix to TID. 4. Acute on chronic hypoxic resp failure - back to baseline now. 2/2 #3. 5. Chronic Afib - stable. Eliquis. 6. HTN - stable 7. Hypothyroidism - TSH normal. continue synthroid 8. COPD - stable. No wheezing. PRN aerosols, incentive spirometer. 9. GERD - protonix DVT ppx: eliquis DC planning: PTOT. From SNF. This patient was seen by Floyd Smith PA-C under the supervision of Dr. Gutiérrez
[2018-10-03] MEDS: Piperacil/Tazobactam 3.375 GM/50 ML ML IV ×2 (14:15→21:29)
--- NOTE | 2018-10-03 21:45 | NURSING ---
Prior to evening med pass, patient continues to keep eyes closed, appearing drowsy. To assess LOC, this RN attempted to ask orientation questions. Patient became angry and called this RN ridiculous. When attempting to explain why this RN was asking LOC questions prior to passing pain medication, patient continues to answer with I'm not crazy, you're ridiculous, my name is on my bracelet. This RN brought in admission discharge rn. Medicated patient for nausea and passed other IV scheduled medications. Patient does not appear to comprehend reasoning behind holding off on PO medications until Zofran can take effect. Patient kept eyes open and was able to hold conversation with admission discharge rn and this RN at that time. Patient continually states she is nauseated and has a fever. No fever identified through oral temp. Patient states she has a fever because she is sweating. This RN and admission discharge rn offered to change gown or apply a cool cloth, but patient refused.
[2018-10-03] MEDS: HYDROcodone Bitartrate/Apap 5/325 Tablet PO (22:18)
[2018-10-03] MEDS: Aspirin E.C. 81 MG Tablet PO (22:18)
[2018-10-03] MEDS: Zolpidem Tartrate 5 MG Tablet PO (23:29)
[2018-10-03] MEDS: Magnesium Hydroxide 30 ML UDC PO (23:30)
[2018-10-04] VITALS (15 sets, daily range): BP systolic 101–141; BP diastolic 54–84; PULSE 63–99; RESP 16–18; TEMP 36.2–37.2; O2SAT 93–97
[2018-10-04] MEDS: Acetaminophen 325 MG Tablet 650 MG PO ×2 (03:25→09:50)
--- NOTE | 2018-10-04 04:47 | NURSING ---
This RN spoke with FAMILIA Gr from [facility] about patient status
[2018-10-04] MEDS: Levothyroxine 100 MCG Tablet PO (05:41)
[2018-10-04] MEDS: 0.9% NaCl Peripheral Flush Adult/Peds IV ×4 (05:41→20:41)
[2018-10-04] MEDS: Piperacil/Tazobactam 3.375 GM/50 ML ML IV (05:41)
[2018-10-04] MEDS: Ondansetron 4 MG/2 ML Vial IV ×3 (05:41→20:41)
[2018-10-04] MEDS: Furosemide 40 MG/4 ML Vial IV ×2 (05:42→13:26)
[2018-10-04 06:48] LABS: Hematocrit 30.4 % (37-47); Hemoglobin 8.8 g/dl (12.0-15.0)
[2018-10-04 06:55] LABS: Anion Gap 4 (5-15); BUN 20 mg/dL (7-18); BUN/Creat Ratio 17.5 RATIO (10-20); Calcium,Total 7.7 mg/dL (8.5-10.1); Chloride 99 mmol/L (98-107); Creatinine, Serum 1.14 mg/dL (0.55-1.02); EST Glomerular Filtration Rate 49 mL/min (>60); Est Glom Filt Rate - Afr Amer 59 mL/min (>60); Estimated Creatinine Clearance 34.83 ml/min; Glucose 108 mg/dL (74-106); Potassium 3.7 mmol/L (3.5-5.1); Sodium Level 138 mmol/L (136-145)
--- NOTE | 2018-10-04 09:20 | PCM.HP.ID ---
Reason for Consult: Cystitis and chronic right leg wound ulcer Consulted by: Dr. Gutiérrez History of Present Illness: The patient is a 82 year old F [] This is an 82-year-old white female with multiple comorbidities and lives in an extended care facility patient was admitted with progressive shortness of breath and evidence of congestive heart failure and rapid atrial fibrillation. A Vitale catheter was placed and aggressive diuresis was done. Patient also has a chronic lower extremity ulcer and has been managed by wound care center. In talking the patient she does state of some gastrointestinal distress mainly nausea and constipation. No chest pain. She currently has a Vitale catheter but denies any dysuria prior to coming to the hospital. Patient is a reasonable historian but is unclear of the specific details. Interestingly her urine culture did grow E. coli ampicillin sensitive and multiple pathogens from her right leg wound ulcer. Patient is currently on vancomycin and Zosyn. 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) Vitamin D deficiency (Chronic) Neuropathy (Chronic) Malnutrition (Chronic) Leg ulcer, left (Chronic) Lymphedema of lower extremity (Chronic) Congestive heart failure (Chronic) History of myocardial infarction (Chronic) Incontinence of urine (Chronic) Hypertension (Chronic) Morbid obesity (Chronic) Hypothyroidism (Chronic) Hypercholesterolemia (Chronic) Osteoarthritis (arthritis due to wear and tear of joints) (Chronic) Rheumatoid arthritis (Chronic) Allergies/Adverse Reactions: Allergies No Known Allergies Allergy (Verified 06/05/18 13:06) Home Medications: Ambulatory Orders Medication Instructions Recorded Acetaminophen [Pain Relief Extra 1,000 mg PO Q8H PRN PRN 04/25/17 Strength] Aspirin [Aspir-Low] 81 mg PO QHS 04/25/17 Gabapentin [Neurontin] 300 mg PO BIDCM 04/25/17 Levothyroxine [Synthroid] 100 mcg PO DAILY@0600 08/01/17 Ondansetron [Zofran Odt] 4 mg PO Q8H PRN PRN #90 tab 06/14/18 Pantoprazole Sodium [Protonix] 20 mg PO DAILY tablet 06/14/18 Apixaban [Eliquis] 5 mg PO BID 10/01/18 Ergocalciferol (Vitamin D2) 50,000 unit PO QWEEK 10/01/18 [Drisdol] Furosemide [Lasix] 40 mg PO DAILY 10/01/18 Hydrocodone Bitart/Apap 5-325 1 tablet PO Q8H PRN PRN 10/01/18 [[place] 5MG-325MG] L. Rhamnosus GG/Inulin [Culturelle 1 each PO DAILY 10/01/18 Capsule] Multivitamin [Multiple Vitamins] 1 each PO DAILY 10/01/18 Polyethylene Glycol 3350 [Miralax] 17 gm PO DAILY 10/01/18 Temazepam [Restoril] 7.5 mg PO DAILY 10/01/18 Vital Signs Temp Pulse Resp BP Pulse Ox 98.9 F 99 18 141/83 H 94 10/04/18 03:19 10/04/18 03:19 10/04/18 03:19 10/04/18 03:19 10/04/18 03:19 Oxygen Flow Rate (L/min) 3 Oxygen Delivery Method Nasal Cannula Weight: 102.2 kg Body Mass Index (BMI) 37.0 Microbiology Past 72 Hours 10/02/18 11:50 Gram Stain - Final Wound - Leg, Right Wound Culture - Preliminary GNR Poss Pseudomonas sp Proteus sp. 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 10/01/18 10:40 Blood Culture - Preliminary Blood Culture (Wb) - Anticubital Right No growth in 48 hours. 10/01/18 11:50 Urine Culture - Final Urine Catheter - Vitale Escherichia coli 10/01/18 11:41 Influenza Types A,B Direct FA (THEO) - Final Mucosa - Nose Laboratory Tests Past 24 Hrs 10/04/18 10/04/18 06:15 06:15 Hgb 8.8 L Hct 30.4 L Sodium 138 Potassium 3.7 Chloride 99 Carbon Dioxide 35.0 H Anion Gap 4 L BUN 20 H Creatinine 1.14 H Estim Creat Clear Calc 34.83 Est GFR (MDRD) Af Amer 59 L Est GFR (MDRD) Non-Af 49 L BUN/Creatinine Ratio 17.5 Glucose 108 H Calcium 7.7 L - Other Studies Radiology: [] Other Studies: [] Route of nutrition/ use of supplements: [] Nutritional Intake: [] IV Site: [] Vitale Catheter: [] Alert chronically ill-appearing no acute distress she is obese female lungs have some bibasilar crackles heart exam S1-S2 abdomen is obese but soft I did take down both of her leg dressings with the help of a nurse. She does have an ulcer in her right posterior leg which is bloody does not look infected there is no surrounding erythema the skin and soft tissue surrounding the ulcer look normal. Left leg looks benign. - Assessment/Plan Antibiotics: [] Assessment/Plan: [] Patient with E. coli cystitis, she also has chronic right leg ulcer but does not look infected. At this point I would treat the cystitis with oral amoxicillin 500 mg 3 times daily for 5 more days. I would discontinue parenteral antimicrobial therapy. I discussed this management with Dr. Gutiérrez this morning.
[2018-10-04] MEDS: Gabapentin 300 MG Capsule PO ×2 (09:43→17:18)
[2018-10-04] MEDS: Pantoprazole Sodium 20 MG Tablet PO (09:43)
[2018-10-04] MEDS: Menthol/Lanolin/Calamine/Znox 113 GM Tube 1 APPLIC TOPICAL ×2 (09:43→21:04)
[2018-10-04] MEDS: APIXABAN 5 MG TABLET PO ×2 (09:43→17:18)
[2018-10-04] MEDS: Polyethylene Glycol 3350 17 GM PACKET PO (09:43)
--- NOTE | 2018-10-04 11:33 | RAD_ITS ---
STUDY: X-RAY CHEST REASON FOR EXAM: Female, 82 years old. Shortness of breath. CHF and sepsis. TECHNIQUE: AP and lateral views of the chest. COMPARISON: Comparison is made with prior study dated October 01, 2018. FINDINGS: EKG electrodes are seen. Stable chronic interstitial increased markings with superimposed CHF. There is been mild improvement as compared to prior study. Blunting of both costophrenic angles posteriorly. There is moderate cardiac enlargement. Normal mediastinum and arnulfo. Normal visualized pulmonary arteries. There is atherosclerotic calcification of the aortic arch with tortuosity. There are diffuse degenerative changes of the visualized thoracic spine. Normal visualized ribs, clavicles, and shoulders. There is no demonstrated abnormality of the visualized soft tissue structures of the upper abdomen. RAD/Chest PA and Lateral IMPRESSION: Mild improvement as compared to prior studies. Electronically Signed: Henry Browne MD at 15:13 EST Tel [phone], Service support ,
[2018-10-04] MEDS: HYDROcodone Bitartrate/Apap 5/325 Tablet PO ×2 (13:26→21:04)
[2018-10-04] MEDS: AMOXICILLIN 500 MG CAPSULE PO ×2 (13:26→21:04)
--- NOTE | 2018-10-04 13:53 | PCM.PROGNOTE ---
Subjective: Pts breathing remains unchanged from yesterday. Mildly SOB. At baseline O2 (2-4) although she uses this only prn at home. She has no CP / heaviness/tightness/ or palp. She complains of chronic RLE wound pain. No fever or chills. No cath discomfort. - Physical Exam General: Alert, Oriented x3, Cooperative HEENT: Atraumatic, PERRLA, EOMI, Normocephalic Neck: Supple, No JVD, Negative Carotid Bruits Lungs: Rales - course rales BL [place]. Cardiovascular: Regular rate, No murmurs Abdomen: Bowel Sounds Present, Soft, Non Tender Extremities: No edema, Capillary Refill Less than 3 Seconds Skin: No rashes, No breakdown Musculoskeletal: No Tenderness to Palpation of Joints or Extremities Neurological: Cranial nerves II-XII grossly intact Psych/Mental Status: Normal Affect, Appropriate, Alert and oriented to time, place, person, mood and affect Vital Signs Temp Pulse Resp BP Pulse Ox 98.1 F 73 16 101/54 L 95 10/04/18 09:46 10/04/18 11:00 10/04/18 09:46 10/04/18 09:46 10/04/18 09:46 Oxygen Flow Rate (L/min) 3 Oxygen Delivery Method Nasal Cannula Weight: 220 lb 14.451 oz Body Mass Index (BMI) 37.0 Intake and Output for Last 24 Hours 10/02/18 10/03/18 10/04/18 23:59 23:59 23:59 Intake Total 1736.9 / 1736.9 2362 / 2362 506.9 / 506.9 Output Total 1020 / 1020 2925 / 2925 825 / 825 Balance 716.9 / 716.9 -563 / -563 -318.1 / -318.1 Microbiology Past 72 Hours 10/02/18 11:50 Gram Stain - Final Wound - Leg, Right Wound Culture - Preliminary GNR Poss Pseudomonas sp Proteus sp. GNR lactose film numberer Staphylococcus aureus 10/01/18 11:45 Blood Culture - Preliminary Blood Culture (Wb) - Anticubital Left No growth in 48 hours. 10/01/18 10:40 Blood Culture - Preliminary Blood Culture (Wb) - Anticubital Right No growth in 48 hours. 10/01/18 11:50 Urine Culture - Final Urine Catheter - Romero Escherichia coli 10/01/18 11:41 Influenza Types A,B Direct FA (THEO) - Final Mucosa - Nose Laboratory Tests Past 24 Hrs 10/04/18 10/04/18 06:15 06:15 Hgb 8.8 L Hct 30.4 L Sodium 138 Potassium 3.7 Chloride 99 Carbon Dioxide 35.0 H Anion Gap 4 L BUN 20 H Creatinine 1.14 H Estim Creat Clear Calc 34.83 Est GFR (MDRD) Af Amer 59 L Est GFR (MDRD) Non-Af 49 L BUN/Creatinine Ratio 17.5 Glucose 108 H Calcium 7.7 L Medical Necessity - Tobacco Use Smoking Status: Unknown if ever smoked Assessment/Plan 1. Acute sepsis 2/2 UTI - Ecoli on culture. WBC improved. No further fever. ID changed to [email or web address]. 2. Chronic LE wounds - ID has de-escalated abx as these are chronic wounds that only require local wound care. She follows [facility] wound care. 3. Acute on chronic diastolic CHF - continue lasix, fluid restriction, ANKIT wraps. Coarse rales on exam. Poor diuresis. Cardiology consulted with failure to improve. 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 - Echo EF65%, D shaped septum, Stage 3 diastolic dysfunction, Severe pulmonary HTN with PASP of 75 mmHg, 1-2+ PVI, 3+ TVI. 4. Acute on chronic hypoxic resp failure - 2/2 #3. 5. Chronic Afib - stable. Eliquis. 6. HTN - stable 7. Hypothyroidism - TSH normal. continue synthroid 8. COPD - stable. No wheezing. PRN aerosols, incentive spirometer. 9. GERD - protonix DVT ppx: eliquis DC planning: Back to SNF on PO abx with wound care follow up pending further workup per cardiology. DC romero cath prior to DC and check post void. This patient was seen by Floyd Smith PA-C under the supervision of Dr. Gutiérrez
--- NOTE | 2018-10-04 15:50 | PCM.CONS.C ---
Problem List (1) Coronary artery disease Status: Chronic (2) Atrial fibrillation Status: Chronic (3) Congestive heart failure Status: Chronic (4) Hypertension Status: Chronic Qualifiers: (5) Hypercholesterolemia Status: Chronic Reason for Consult Date of Consultation: 10/04/18 Reason for Consultation: Atrial fibrillation, coronary artery disease, severe pulmonary hypertension, normal LV function History of Present Illness: The patient is a 82 year old F, who lives in an assisted living center, has a primary buzzsaw operator helper whose name she cannot recall and Libby Lee, with a long history of coronary artery disease status post stenting approximately 5 years ago at [facility], chronic atrial fibrillation for greater than 5 years on chronic Coumadin therapy and recently switched to Eliquis. In addition she has a history of morbid obesity, diabetes, anasarca, and lower extremity ulcers on her right leg which recently underwent skin grafting. While at the [facility] [place] she was found on the toilet to be cyanotic and unresponsive. She was brought to [facility] ER where she was given oxygen therapy and her situation improved. It was felt the patient may have infection of her lower extremity, and she was given IV antibiotic therapy. 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 In addition she was found to have a moderate-sized left pleural effusion. Patient underwent a CTA of her abdomen and pelvis which demonstrated bilateral pleural effusions, left greater than right but did not appear to be amenable to thoracentesis. She also was found to have anasarca. Patient reports that she has been compliant with her medications and is somewhat lucid despite her age and ailments. Patient has not stopped her anticoagulation therapy. In addition the patient is found to have anemia with a hemoglobin of 8.8. [] Past Medical History Allergies/Adverse Reactions: Allergies No Known Allergies Allergy (Verified 06/05/18 13:06) Home Medications: Ambulatory Orders Medication Instructions Recorded Acetaminophen [Pain Relief Extra 1,000 mg PO Q8H PRN PRN 04/25/17 Strength] Aspirin [Aspir-Low] 81 mg PO QHS 04/25/17 Gabapentin [Neurontin] 300 mg PO BIDCM 04/25/17 Levothyroxine [Synthroid] 100 mcg PO DAILY@0600 08/01/17 Ondansetron [Zofran Odt] 4 mg PO Q8H PRN PRN #90 tab 06/14/18 Pantoprazole Sodium [Protonix] 20 mg PO DAILY tablet 06/14/18 Apixaban [Eliquis] 5 mg PO BID 10/01/18 Ergocalciferol (Vitamin D2) 50,000 unit PO QWEEK 10/01/18 [Drisdol] Furosemide [Lasix] 40 mg PO DAILY 10/01/18 Hydrocodone Bitart/Apap 5-325 1 tablet PO Q8H PRN PRN 10/01/18 [[place] 5MG-325MG] L. Rhamnosus GG/Inulin [Culturelle 1 each PO DAILY 10/01/18 Capsule] Multivitamin [Multiple Vitamins] 1 each PO DAILY 10/01/18 Polyethylene Glycol 3350 [Miralax] 17 gm PO DAILY 10/01/18 Temazepam [Restoril] 7.5 mg PO DAILY 10/01/18 Past Medical History (Chronic Problems): Chronic Problems Venous stasis ulcer of right lower extremity (Chronic) Coronary artery disease (Chronic) Atrial fibrillation (Chronic) COPD (chronic obstructive pulmonary disease) (Chronic) Sleep apnea (Chronic) GERD (gastroesophageal reflux disease) (Chronic) Migraine (Chronic) Obesity (Chronic) Immobility (Chronic) Heart failure with preserved ejection fraction (Chronic) Fracture of fifth metatarsal bone of left foot (Chronic) Delayed wound healing (Chronic) 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) Vitamin D deficiency (Chronic) Neuropathy (Chronic) Malnutrition (Chronic) Leg ulcer, left (Chronic) Lymphedema of lower extremity (Chronic) Congestive heart failure (Chronic) History of myocardial infarction (Chronic) Incontinence of urine (Chronic) Hypertension (Chronic) Morbid obesity (Chronic) Hypothyroidism (Chronic) Hypercholesterolemia (Chronic) Osteoarthritis (arthritis due to wear and tear of joints) (Chronic) Rheumatoid arthritis (Chronic) Surgical History: herniorrhaphy, hysterectomy, total knee arthroplasty - Bilateral., tonsillectomy, - - Cardiac stents x 2, gastric bypass surgery, right ankle ORIF. 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 The patient's mother at the age of 90 with a history of arthritis. Paternal History Items: Heart Disease Lives: Group Home Smoking Status: Unknown if ever smoked Alcohol: None Drugs: None Review of Systems - Review of Systems General: Denies: Fever, Night Sweats, Fatigue Cardiovascular: Reports: Shortness of Breath, Shortness of Breath at Rest. Denies: Chest Discomfort, Orthopnea, PND, Peripheral Edema, Palpitations, Lightheadedness, Dizziness, Near Syncope, Syncope Respiratory: Denies: Cough, Sputum Production, Hemoptysis Gastrointestinal: Denies: Hematemesis, Hematochezia, Melena Genitourinary: Denies: Dysuria, Hematuria Skin: Denies: Rash Subjectve: Patient sitting up in bed, positive conversational dyspnea. Objective: Vital Signs Temp Pulse Resp BP Pulse Ox 97.8 F 72 16 126/76 H 96 10/04/18 15:43 10/04/18 15:43 10/04/18 15:43 10/04/18 15:43 10/04/18 15:43 Oxygen Flow Rate (L/min) 3 Oxygen Delivery Method Nasal Cannula Weight: 220 lb 14.451 oz Body Mass Index (BMI) 37.0 Intake and Output for Last 24 Hours 10/02/18 10/03/18 10/04/18 23:59 23:59 23:59 Intake Total 1736.9 / 1736.9 2362 / 2362 1006.9 / 1006.9 Output Total 1020 / 1020 2925 / 2925 1425 / 1425 Balance 716.9 / 716.9 -563 / -563 -418.1 / -418.1 General: Awake, Alert, Oriented x 3 HEENT: PERRL, EOMI, Sclera Non Icteric Neck: Supple, Good ROM, No Lymph Node Enlargement Lungs: Rales - Right Base, Dullness to Percussion-Right Cardiovascular: Irregular Rhythm, Normal S1, No Rubs, No Gallops, Prominent P2 Murmur Murmur: Grade 2/6, Holosystolic Vascular: No Carotid Bruits, Normal Femoral Pulses, Normal Radial Pulses, Normal Dorsalis Pedal Pulse, Normal Posterior Tibial Pulses Abdomen: Bowel Sounds Present, Soft, Non Tender, No HSM, No Organomegaly Extremities: No Cyanosis, No Clubbing, Bilateral Edema +2 Neurological: No Focal Motor or Sensory Deficit 10/04/18 06:15: Hgb 8.8 L, Hct 30.4 L 10/04/18 06:15: Sodium 138, Potassium 3.7, Chloride 99, Carbon Dioxide 35.0 H, Anion Gap 4 L, BUN 20 H, Creatinine 1.14 H, Est GFR (MDRD) Af Amer 59 L, Est GFR (MDRD) Non-Af 49 L, BUN/Creatinine Ratio 17.5, Glucose 108 H, Calcium 7.7 L Rhythm: EKG: ECHO: Stress Test: Cardiac Cath: PCI: CT Surgery: Holter monitor: EPS: PPM: CXR: Chest CT Scan: Assessment/Plan 1. Anasarca: The patient has anasarca demonstrated on her physical exam as well as confirmed by CT scan. This is most likely a result of malnutrition and poor albumin and oncotic pressure. She also was found to have evidence of severe pulmonary hypertension by echocardiogram with PA pressures are greater than 80 mmHg. Diuresis of an individual like this in the face of severe pulmonary hypertension and normal LV function may be somewhat problematic as she is preload dependent. She is currently on IV Lasix 40 mg 3 times daily. Would recommend continuing this at this rate, in the hopes that we can continue to offload the pressure in her lungs although this may be problematic and may experience hypotension. In order to compensate for this I would consider transfusing her 1 unit of PRBCs to assist with increasing oncotic pressure, and extracting third space fluid for diuresis. This would obviously only be a temporary fix given her low albumin, malnutrition, and hypermetabolic state given her skin ulcers. If the patient begins to decrease her blood pressure with IV diuretics, I would stop IV diuretic therapy and switch her to p.o. diuretic therapy such as Lasix 40 mg p.o. twice daily. 2. Coronary artery disease: The patient apparently had a myocardial infarction many years ago and reports that she has a stent on the right side. Recommend obtaining records from her primary buzzsaw operator helper at [facility]. Would not recommend stress testing at this time. She is currently on baby aspirin and Eliquis and any attempts for catheterization would require at least 3 days off of Eliquis to assure groin stability. Would not recommend any stress testing until after her lower extremity infection has resolved. 3. Atrial fibrillation: Currently in atrial fibrillation with controlled ventricular response. Again I believe a unit of PRBCs may be beneficial to assist with her heart rate. Continue Eliquis therapy. 4. Pleural effusion: The patient has evidence of a pleural effusion by both echocardiogram and CT scan. It does not appear to be large enough to perform a thoracentesis which would require cessation of her Eliquis for at least 3 days time. Would recommend continuing to monitor this. 5. Thank you very much for the opportunity to precipitate the cardiac care of your patient. Rotation time took place between 130 and 2 PM. Code Visit Inpatient E&M: 58258 Init Hosp L2
--- NOTE | 2018-10-04 15:54 | CON.PCM_ITS ---
Problem List (1) Coronary artery disease Status: Chronic (2) Atrial fibrillation Status: Chronic (3) Congestive heart failure Status: Chronic (4) Hypertension Status: Chronic Qualifiers: (5) Hypercholesterolemia Status: Chronic Reason for Consult Date of Consultation: 10/04/18 Reason for Consultation: Atrial fibrillation, coronary artery disease, severe pulmonary hypertension, normal LV function History of Present Illness: The patient is a 82 year old F, who lives in an assisted living center, has a primary heel compressor whose name she cannot recall and Libby Lee, with a long history of coronary artery disease status post stenting approximately 5 years ago at [facility], chronic atrial fibrillation for greater than 5 years on chronic Coumadin therapy and recently switched to Eliquis. In addition she has a history of morbid obesity, diabetes, anasarca, and lower extremity ulcers on her right leg which recently underwent skin grafting. While at the [facility] [place] she was found on the toilet to be cyanotic and unresponsive. She was brought to [facility] ER where she was given oxygen therapy and her situation improved. It was felt the patient may have infection of her lower extremity, and she was given IV antibiotic therapy. 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 In addition she was found to have a moderate-sized left pleural effusion. Patient underwent a CTA of her abdomen and pelvis which demonstrated bilateral pleural effusions, left greater than right but did not appear to be amenable to thoracentesis. She also was found to have anasarca. Patient reports that she has been compliant with her medications and is somewhat lucid despite her age and ailments. Patient has not stopped her anticoagulation therapy. In addition the patient is found to have anemia with a hemoglobin of 8.8. [] Past Medical History Allergies/Adverse Reactions: Allergies No Known Allergies Allergy (Verified 06/05/18 13:06) Home Medications: Ambulatory Orders Medication Instructions Recorded Acetaminophen [Pain Relief Extra 1,000 mg PO Q8H PRN PRN 04/25/17 Strength] Aspirin [Aspir-Low] 81 mg PO QHS 04/25/17 Gabapentin [Neurontin] 300 mg PO BIDCM 04/25/17 Levothyroxine [Synthroid] 100 mcg PO DAILY@0600 08/01/17 Ondansetron [Zofran Odt] 4 mg PO Q8H PRN PRN #90 tab 06/14/18 Pantoprazole Sodium [Protonix] 20 mg PO DAILY tablet 06/14/18 Apixaban [Eliquis] 5 mg PO BID 10/01/18 Ergocalciferol (Vitamin D2) 50,000 unit PO QWEEK 10/01/18 [Drisdol] Furosemide [Lasix] 40 mg PO DAILY 10/01/18 Hydrocodone Bitart/Apap 5-325 1 tablet PO Q8H PRN PRN 10/01/18 [[place] 5MG-325MG] L. Rhamnosus GG/Inulin [Culturelle 1 each PO DAILY 10/01/18 Capsule] Multivitamin [Multiple Vitamins] 1 each PO DAILY 10/01/18 Polyethylene Glycol 3350 [Miralax] 17 gm PO DAILY 10/01/18 Temazepam [Restoril] 7.5 mg PO DAILY 10/01/18 Past Medical History (Chronic Problems): Chronic Problems Venous stasis ulcer of right lower extremity (Chronic) Coronary artery disease (Chronic) Atrial fibrillation (Chronic) COPD (chronic obstructive pulmonary disease) (Chronic) Sleep apnea (Chronic) GERD (gastroesophageal reflux disease) (Chronic) Migraine (Chronic) Obesity (Chronic) Immobility (Chronic) Heart failure with preserved ejection fraction (Chronic) Fracture of fifth metatarsal bone of left foot (Chronic) Delayed wound healing (Chronic) 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) Vitamin D deficiency (Chronic) Neuropathy (Chronic) Malnutrition (Chronic) Leg ulcer, left (Chronic) Lymphedema of lower extremity (Chronic) Congestive heart failure (Chronic) History of myocardial infarction (Chronic) Incontinence of urine (Chronic) Hypertension (Chronic) Morbid obesity (Chronic) Hypothyroidism (Chronic) Hypercholesterolemia (Chronic) Osteoarthritis (arthritis due to wear and tear of joints) (Chronic) Rheumatoid arthritis (Chronic) Surgical History: herniorrhaphy, hysterectomy, total knee arthroplasty - Bilateral., tonsillectomy, - - Cardiac stents x 2, gastric bypass surgery, right ankle ORIF. 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 The patient's mother at the age of 90 with a history of arthritis. Paternal History Items: Heart Disease Lives: [facility] Smoking Status: Unknown if ever smoked Alcohol: None Drugs: None Review of Systems - Review of Systems General: Denies: Fever, Night Sweats, Fatigue Cardiovascular: Reports: Shortness of Breath, Shortness of Breath at Rest. Denies: Chest Discomfort, Orthopnea, PND, Peripheral Edema, Palpitations, Lightheadedness, Dizziness, Near Syncope, Syncope Respiratory: Denies: Cough, Sputum Production, Hemoptysis Gastrointestinal: Denies: Hematemesis, Hematochezia, Melena Genitourinary: Denies: Dysuria, Hematuria Skin: Denies: Rash Subjectve: Patient sitting up in bed, positive conversational dyspnea. Objective: Vital Signs Temp Pulse Resp BP Pulse Ox 97.8 F 72 16 126/76 H 96 10/04/18 15:43 10/04/18 15:43 10/04/18 15:43 10/04/18 15:43 10/04/18 15:43 Oxygen Flow Rate (L/min) 3 Oxygen Delivery Method Nasal Cannula Weight: 220 lb 14.451 oz Body Mass Index (BMI) 37.0 Intake and Output for Last 24 Hours 10/02/18 10/03/18 10/04/18 23:59 23:59 23:59 Intake Total 1736.9 / 1736.9 2362 / 2362 1006.9 / 1006.9 Output Total 1020 / 1020 2925 / 2925 1425 / 1425 Balance 716.9 / 716.9 -563 / -563 -418.1 / -418.1 General: Awake, Alert, Oriented x 3 HEENT: PERRL, EOMI, Sclera Non Icteric Neck: Supple, Good ROM, No Lymph Node Enlargement Lungs: Rales - Right Base, Dullness to Percussion-Right Cardiovascular: Irregular Rhythm, Normal S1, No Rubs, No Gallops, Prominent P2 Murmur Murmur: Grade 2/6, Holosystolic Vascular: No Carotid Bruits, Normal Femoral Pulses, Normal Radial Pulses, Normal Dorsalis Pedal Pulse, Normal Posterior Tibial Pulses Abdomen: Bowel Sounds Present, Soft, Non Tender, No HSM, No Organomegaly Extremities: No Cyanosis, No Clubbing, Bilateral Edema +2 Neurological: No Focal Motor or Sensory Deficit 10/04/18 06:15: Hgb 8.8 L, Hct 30.4 L 10/04/18 06:15: Sodium 138, Potassium 3.7, Chloride 99, Carbon Dioxide 35.0 H, Anion Gap 4 L, BUN 20 H, Creatinine 1.14 H, Est GFR (MDRD) Af Amer 59 L, Est GFR (MDRD) Non-Af 49 L, BUN/Creatinine Ratio 17.5, Glucose 108 H, Calcium 7.7 L Rhythm: EKG: ECHO: Stress Test: Cardiac Cath: PCI: CT Surgery: Holter monitor: EPS: PPM: CXR: Chest CT Scan: Assessment/Plan 1. Anasarca: The patient has anasarca demonstrated on her physical exam as well as confirmed by CT scan. This is most likely a result of malnutrition and poor albumin and oncotic pressure. She also was found to have evidence of severe pulmonary hypertension by echocardiogram with PA pressures are greater than 80 mmHg. Diuresis of an individual like this in the face of severe pulmonary hypertension and normal LV function may be somewhat problematic as she is preload dependent. She is currently on IV Lasix 40 mg 3 times daily. Would recommend continuing this at this rate, in the hopes that we can continue to offload the pressure in her lungs although this may be problematic and may experience hypotension. In order to compensate for this I would consider transfusing her 1 unit of PRBCs to assist with increasing oncotic pressure, and extracting third space fluid for diuresis. This would obviously only be a temporary fix given her low albumin, malnutrition, and hypermetabolic state given her skin ulcers. If the patient begins to decrease her blood pressure with IV diuretics, I would stop IV diuretic therapy and switch her to p.o. diuretic therapy such as Lasix 40 mg p.o. twice daily. 2. Coronary artery disease: The patient apparently had a myocardial infarction many years ago and reports that she has a stent on the right side. Recommend obtaining records from her primary heel compressor at [facility]. Would not recommend stress testing at this time. She is currently on baby aspirin and Eliquis and any attempts for catheterization would require at least 3 days off of Eliquis to assure groin stability. Would not recommend any stress testing until after her lower extremity infection has resolved. 3. Atrial fibrillation: Currently in atrial fibrillation with controlled ventricular response. Again I believe a unit of PRBCs may be beneficial to assist with her heart rate. Continue Eliquis therapy. 4. Pleural effusion: The patient has evidence of a pleural effusion by both echocardiogram and CT scan. It does not appear to be large enough to perform a thoracentesis which would require cessation of her Eliquis for at least 3 days time. Would recommend continuing to monitor this. 5. Thank you very much for the opportunity to precipitate the cardiac care of your patient. Rotation time took place between 130 and 2 PM. Code Visit Inpatient E&M: [id number] Init Hosp L2
[2018-10-04] MEDS: Furosemide 40 MG Tablet PO (17:18)
[2018-10-04] MEDS: Sodium Bicarbonate 8.4% 50 ML Syringe 50 MEQ IV (17:41)
[2018-10-04] MEDS: Aspirin E.C. 81 MG Tablet PO (21:04)
[2018-10-04] MEDS: Zolpidem Tartrate 5 MG Tablet PO (23:27)
[2018-10-05 03:00] VITALS: PULSE 72
[2018-10-05 05:38] VITALS: BP 114/64; PULSE 70; RESP 18; TEMP 36.4; O2SAT 97
[2018-10-05] MEDS: AMOXICILLIN 500 MG CAPSULE PO (05:43)
[2018-10-05] MEDS: Levothyroxine 100 MCG Tablet PO (05:43)
[2018-10-05 06:12] LABS: Hematocrit 33.5 % (37-47)
[2018-10-05 06:17] LABS: BUN 19 mg/dL (7-18); BUN/Creat Ratio 18.6 RATIO (10-20); Chloride 97 mmol/L (98-107); Creatinine, Serum 1.02 mg/dL (0.55-1.02); EST Glomerular Filtration Rate 55 mL/min (>60); Est Glom Filt Rate - Afr Amer 67 mL/min (>60); Estimated Creatinine Clearance 38.92 ml/min; Glucose 87 mg/dL (74-106); Potassium 3.7 mmol/L (3.5-5.1); Sodium Level 139 mmol/L (136-145)
[2018-10-05 06:18] LABS: Anion Gap 4 (5-15)
[2018-10-05 07:43] VITALS: PULSE 73
--- NOTE | 2018-10-05 07:44 | NURSING ---
called Chano, patient's friend, to notify him of patient getting transferred down to our floor around 0015. he did not answer, so this RN left a voicemail to have him call the floor back and ask to speak with the dayshift RN.
--- NOTE | 2018-10-05 08:12 | NURSING ---
82 y/o F alert and relaxing in bed- calm and cooperative with care. Introduced self to pt, pt with pleasant conversation. L FA IV site with no edema or erythema, no c/o pain. BLE with pitting edema, heels assessed for redness, none observed. Vitale attached to RLE, draining yellow urine. All needs met, call light within reach. FRANCINE Castillo
[2018-10-05] MEDS: Pantoprazole Sodium 20 MG Tablet PO (09:00)
[2018-10-05] MEDS: Polyethylene Glycol 3350 17 GM PACKET PO (09:00)
[2018-10-05] MEDS: Furosemide 40 MG Tablet PO (09:00)
[2018-10-05] MEDS: APIXABAN 5 MG TABLET PO (09:00)
[2018-10-05] MEDS: Gabapentin 300 MG Capsule PO (09:00)
[2018-10-05] MEDS: Menthol/Lanolin/Calamine/Znox 113 GM Tube 1 APPLIC TOPICAL (09:01)
[2018-10-05 09:58] VITALS: PULSE 76; RESP 18; O2SAT 96
[2018-10-05 10:00] VITALS: BP 110/60; PULSE 76; RESP 18; TEMP 36.6; O2SAT 95
[2018-10-05] MEDS: HYDROcodone Bitartrate/Apap 5/325 Tablet PO (10:29)
[2018-10-05] MEDS: Ondansetron 4 MG/2 ML Vial IV (10:29)
--- NOTE | 2018-10-05 10:31 | PCM.EXTCARCO ---
- Diet 10/01/18 14:25 Diet: Cardiac/Low Cholesterol Food consistency:: Regular Liquid Consistency:: Regular/Thin 1500cc Fluid restriction - Routine Orders/Code Status Enema Type: Fleetz Enema Frequency: Daily PRN Suppository Type: Dulcolax 10mg Suppository Frequency: Daily PRN O2 Liters per Minute: 2-4 O2 Frequency: Continuous Keep PO Greater than or Equal to (%): 90 Routine Lab Work: CBC, BMP, - - 2-3 days followed by weekly BMP, CBC Code Status: Full Code - Wound(s) RLE Wound Type: Stasis Ulcer Dressing Change: AntiMicrobial (Aquacel AG, etc) Right great toe Wound Type: sore - Suggestions for Active Care Change Position every (hours): 2 Times a day to sit in chair: 3 - Therapies Physical Therapy: Eval and Treat Occupational Therapy: Eval and Treat - Problem/Diagnosis (1) Venous stasis ulcer of right lower extremity Status: Acute Current Visit: Yes (2) Coronary artery disease Status: Chronic Current Visit: No (3) Atrial fibrillation Status: Chronic Current Visit: No (4) COPD (chronic obstructive pulmonary disease) Status: Chronic Current Visit: No (5) Sleep apnea Status: Chronic Current Visit: No (6) GERD (gastroesophageal reflux disease) Status: Chronic Current Visit: No (7) Obesity Status: Chronic Current Visit: No (8) Lymphedema of lower extremity Status: Chronic Current Visit: No (9) Congestive heart failure Status: Acute Current Visit: Yes (10) Hypertension Status: Chronic Current Visit: No (11) Hypothyroidism Status: Chronic Current Visit: No (12) Osteoarthritis (arthritis due to wear and tear of joints) Status: Chronic Current Visit: No - Allergies/Procedures Done in Hospital Allergies/Adverse Reactions: Allergies No Known Allergies Allergy (Verified 06/05/18 13:06) Procedures: 2-D Echocardiogram - Type of Care/Length of Stay Estimated LOS: Convalescent Care Less Than 30 days Type of Care Needed: Skilled Rehab Potential: Fair Prognosis: Fair - Additional Orders/Day of Discharge Additional Orders: Cleanse wound to the rigth posterolateral lower leg daily with NS. pat dry. place Aquacel AG, cover with dry dressing, and wrap with kerlix. apply ANKIT wraps to bilateral lower legs from the base of the toes to just below the knees. H&P will serve as current which was dated: 10/01/18 Day of Discharge: 10/05/18 - Dietary and Speech Recommendations Dietitian Recommendations/Changes: Rec 1 packet Carlo BID for wound healing. Suggest diet change to cardiac/low sodium with 1500 ml FR. Consider consult to [employer] re: pt reports difficulty swallowing at times. - Follow Up Care Primary Care Physician: Mani Myles MD [Primary Care Provider] - Please follow up with your Primary Care Physician in: 3-5 Days Please Follow Up With: [facility] When: 1 Week Please Follow Up With: Abdiel Arevalo MD - May see WELDING SYSTEMS AND EQUIPMENT REPAIRER/PA When: 1-2 Weeks
--- NOTE | 2018-10-05 10:35 | TREXTCA.CO_ITS ---
- Diet 10/01/18 14:25 Diet: Cardiac/Low Cholesterol Food consistency:: Regular Liquid Consistency:: Regular/Thin 1500cc Fluid restriction - Routine Orders/Code Status Enema Type: Fleetz Enema Frequency: Daily PRN Suppository Type: Dulcolax 10mg Suppository Frequency: Daily PRN O2 Liters per Minute: 2-4 O2 Frequency: Continuous Keep PO Greater than or Equal to (%): 90 Routine Lab Work: CBC, BMP, - - 2-3 days followed by weekly BMP, CBC Code Status: Full Code - Wound(s) RLE Wound Type: Stasis Ulcer Dressing Change: AntiMicrobial (Aquacel AG, etc) Right great toe Wound Type: sore - Suggestions for Active Care Change Position every (hours): 2 Times a day to sit in chair: 3 - Therapies Physical Therapy: Eval and Treat Occupational Therapy: Eval and Treat - Problem/Diagnosis (1) Venous stasis ulcer of right lower extremity Status: Acute Current Visit: Yes (2) Coronary artery disease Status: Chronic Current Visit: No (3) Atrial fibrillation Status: Chronic Current Visit: No (4) COPD (chronic obstructive pulmonary disease) Status: Chronic Current Visit: No (5) Sleep apnea Status: Chronic Current Visit: No (6) GERD (gastroesophageal reflux disease) Status: Chronic Current Visit: No (7) Obesity Status: Chronic Current Visit: No (8) Lymphedema of lower extremity Status: Chronic Current Visit: No (9) Congestive heart failure Status: Acute Current Visit: Yes (10) Hypertension Status: Chronic Current Visit: No (11) Hypothyroidism Status: Chronic Current Visit: No (12) Osteoarthritis (arthritis due to wear and tear of joints) Status: Chronic Current Visit: No - Allergies/Procedures Done in Hospital Allergies/Adverse Reactions: Allergies No Known Allergies Allergy (Verified 06/05/18 13:06) Procedures: 2-D Echocardiogram - Type of Care/Length of Stay Estimated LOS: Convalescent Care Less Than 30 days Type of Care Needed: Skilled Rehab Potential: Fair Prognosis: Fair - Additional Orders/Day of Discharge Additional Orders: Cleanse wound to the rigth posterolateral lower leg daily w ith NS. pat dry. place Aquacel AG, cover with dry dressing, and wrap with kerlix. apply ANKIT wraps to bilateral lower legs from the base of the toes to just below the knees. H&P will serve as current which was dated: 10/01/18 Day of Discharge: 10/05/18 - Dietary and Speech Recommendations Dietitian Recommendations/Changes: Rec 1 packet Carlo BID for wound healing. Suggest diet change to cardiac/low sodium with 1500 ml FR. Consider consult to ORIENTATION & MOBILITY SPECIALIST re: pt reports difficulty swallowing at times. - Follow Up Care Primary Care Physician: Mani Myles MD [Primary Care Provider] - Please follow up with your Primary Care Physician in: 3-5 Days Please Follow Up With: [facility] When: 1 Week Please Follow Up With: Abdiel Arevalo MD - May see ADMINISTRATIVE ASST/PA When: 1-2 Weeks
--- NOTE | 2018-10-05 10:42 | PCM.DC.SUM ---
Discharge Date and Diagnosis Date of Admission: 10/01/18 Date of Discharge: 10/05/18 - Primary Discharge Diagnosis Active and Suspected Problems 1. Acute sepsis secondary to E. coli UTI 2. Acute on chronic hypoxic respiratory failure secondary to acute on chronic diastolic CHF 3. 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) Vitamin D deficiency (Chronic) Neuropathy (Chronic) Malnutrition (Chronic) Leg ulcer, left (Chronic) Lymphedema of lower extremity (Chronic) History of myocardial infarction (Chronic) Incontinence of urine (Chronic) Hypertension (Chronic) Morbid obesity (Chronic) Hypothyroidism (Chronic) Hypercholesterolemia (Chronic) Osteoarthritis (arthritis due to wear and tear of joints) (Chronic) Rheumatoid arthritis (Chronic) Hospital Course and Treatment Imaging Results: Diagnostic Data Abdomen/Pelvis CT 10/01/18 10:39 IMPRESSION: Cardiomegaly with small bilateral pleural effusions and mild pulmonary vascular congestion. Anasarca. No acute abdominal or pelvic pathology demonstrated on this Limited, noncontrast CT. Electronically Signed: Javier Serrano at 12:00 EST Tel , Service support , Chest X-Ray 10/04/18 11:33 IMPRESSION: Mild improvement as compared to prior studies. Electronically Signed: Henry Browne MD at 15:13 EST Tel [phone], Service support , Consultations 10/01/18 17:15 Consult: Onc/Wound/marine biologist Routine Comment: Reason for Consult:: RLE wound Dr. Arevalo- Cardiology Dr. Hernandez- ID Operations: None Procedures: 2-D Echocardiogram Summary of Care Provided: The patient is a 82 year old F admitted 10/01/2018 due to shortness of breath, lethargy. 1. Acute sepsis secondary to E. coli UTI-patient will continue amoxicillin through 10/09/2018. Sepsis resolved. 2. Acute on chronic hypoxic respiratory failure secondary to acute on chronic diastolic CHF-cardiology consulted. Echocardiogram with EF 65%, stage III diastolic dysfunction, severe pulmonary hypertension with pulmonary artery systolic pressure 75 mmHg. Patient will continue Lasix 40 mg p.o. twice daily. Follow-up with cardiology in 1-2 weeks. Continue supplement oxygen to maintain O2 sat above 90%. 3. 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 with MRSA, GNR lactose site promotion agent, Proteus-patient seen by ID. Wounds do not appear infected. Continue daily dressing changes. Cleanse wound to right lower leg daily with normal saline, placed Aquacel Ag, cover with dry dressing, wrap with Kerlix. Rashad wrap bilateral lower extremities from toes to just below knees. Follow-up with wound center in 1 week. Patient's other past medical history includes chronic atrial fibrillation, chronic COPD, hypothyroidism, anemia of chronic disease, GERD, obesity. Chronic medical conditions stable at this time. General: Alert, Cooperative, no apparent distress HEENT: Atraumatic, PERRLA, EOMI, Normocephalic Neck: Supple, No JVD, Negative Carotid Bruits Lungs: Diminished, no mild faint rales Cardiovascular: Atrial fibrillation, rate controlled Abdomen: Bowel Sounds Present, Soft, Non Tender Extremities: No edema, Capillary Refill Less than 3 Seconds Skin: Chronic bilateral lower extremity venous stasis wounds, ulcerations. Dressings intact Musculoskeletal: No Tenderness to Palpation of Joints or Extremities Neurological: Cranial nerves II-XII grossly intact Psych/Mental Status: Normal Affect, Appropriate Patient seen and examined prior to discharge. Physical assessment as noted above. Patient is stable for discharge with follow up recommendations as noted above. This patient was seen by CHRIS Tinsley under the supervision of Dr. Gutiérrez. - Physical Exam Vital Signs Temp Pulse Resp BP Pulse Ox 97.6 F L 76 18 114/64 96 10/05/18 05:38 10/05/18 09:58 10/05/18 09:58 10/05/18 05:38 10/05/18 09:58 Oxygen Flow Rate (L/min) 3 Oxygen Delivery Method Nasal Cannula Weight: 218 lb 11.177 oz Body Mass Index (BMI) 37.0 Intake and Output for Last 24 Hours 10/03/18 10/04/18 10/05/18 23:59 23:59 23:59 Intake Total 2362 / 2362 1792.2 / 1792.2 60 / 60 Output Total 2925 / 2925 3650 / 3650 400 / 400 Balance -563 / -563 -1857.8 / -1857.8 -340 / -340 Microbiology Past 72 Hours 10/02/18 11:50 Gram Stain - Final Wound - Leg, Right Wound Culture - Final Pseudomonas aeroginosa Proteus mirabilis Escherichia coli Meth. resistant Staph. aureus 10/01/18 11:45 Blood Culture - Preliminary Blood Culture (Wb) - Anticubital Left No growth in 48 hours. 10/01/18 10:40 Blood Culture - Preliminary Blood Culture (Wb) - Anticubital Right No growth in 48 hours. 10/01/18 11:50 Urine Culture - Final Urine Catheter - Vitale Escherichia coli Laboratory Tests Past 24 Hrs 10/04/18 10/05/18 10/05/18 17:02 05:40 05:40 Hgb 10.0 L Hct 33.5 L Sodium 139 Potassium 3.7 Chloride 97 L Carbon Dioxide 38.0 H Anion Gap 4 L BUN 19 H Creatinine 1.02 Estim Creat Clear Calc 38.92 Est GFR (MDRD) Af Amer 67 Est GFR (MDRD) Non-Af 55 L BUN/Creatinine Ratio 18.6 Glucose 87 Calcium 8.0 L Blood Type O POSITIVE Antibody Screen NEGATIVE Crossmatch See Detail Home Medications: Medications to take at Discharge Acetaminophen [Pain Relief Extra Strength] 1,000 mg PO Q8H PRN PRN 04/25/17 Aspirin [Aspir-Low] 81 mg PO QHS 04/25/17 Gabapentin [Neurontin] 300 mg PO BIDCM 04/25/17 Levothyroxine [Synthroid] 100 mcg PO DAILY@0600 08/01/17 Ondansetron [Zofran Odt] 4 mg PO Q8H PRN PRN #90 tab 06/14/18 Pantoprazole Sodium [Protonix] 20 mg PO DAILY tablet 06/14/18 Apixaban [Eliquis] 5 mg PO BID 10/01/18 Ergocalciferol (Vitamin D2) [Drisdol] 50,000 unit PO QWEEK 10/01/18 Hydrocodone Bitart/Apap 5-325 [[place] 5/325] 1 tablet PO Q8H PRN PRN 10/01/18 L. Rhamnosus GG/Inulin [Culturelle Capsule] 1 each PO DAILY 10/01/18 Multivitamin [Multiple Vitamins] 1 each PO DAILY 10/01/18 Polyethylene Glycol 3350 [Miralax] 17 gm PO DAILY 10/01/18 Temazepam [Restoril] 7.5 mg PO DAILY 10/01/18 Amoxicillin [Amoxil] 500 mg PO Q8 capsule 10/05/18 Furosemide [Lasix] 40 mg PO BID@1000,1800 tablet 10/05/18 Ipratropium/Albuterol Sulfate [Duoneb] 3 ml INHALATION Q6H.RT ampul.neb 10/05/18 Menthol/Lanolin/Calamine/Znox [Calmoseptine Ointment] 1 applic TOPICAL BID tube 10/05/18 Primary Care Physician: Mani Myles MD [Primary Care Provider] - Please follow up with your Primary Care Physician in: 3-5 Days Please Follow Up With: Wound Care Center When: 1 Week Please Follow Up With: Abdiel Arevalo MD - May see AGRICULTURAL CROP FARM MANAGER/PA When: 1-2 Weeks Disposition: [facility] facility Minutes spent on discharge:: 35 Patient Condition:: Stable Medical Necessity - Tobacco Use Smoking Status: Unknown if ever smoked Meaningful Use Info Meaningful Use Diagnoses (Choose all that apply): CHF - CHF RASHAD/ARB ordered at discharge?: Yes Reason RASHAD/ARB not ordered?: Worsening renal dysfunctn Documented LVEF (%): 65
--- NOTE | 2018-10-05 10:47 | DS.PCM_ITS ---
Discharge Date and Diagnosis Date of Admission: 10/01/18 Date of Discharge: 10/05/18 - Primary Discharge Diagnosis Active and Suspected Problems 1. Acute sepsis secondary to E. coli UTI 2. Acute on chronic hypoxic respiratory failure secondary to acute on chronic diastolic CHF 3. 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) Vitamin D deficiency (Chronic) Neuropathy (Chronic) Malnutrition (Chronic) Leg ulcer, left (Chronic) Lymphedema of lower extremity (Chronic) History of myocardial infarction (Chronic) Incontinence of urine (Chronic) Hypertension (Chronic) Morbid obesity (Chronic) Hypothyroidism (Chronic) Hypercholesterolemia (Chronic) Osteoarthritis (arthritis due to wear and tear of joints) (Chronic) Rheumatoid arthritis (Chronic) Hospital Course and Treatment Imaging Results: Diagnostic Data Abdomen/Pelvis CT 10/01/18 10:39 IMPRESSION: Cardiomegaly with small bilateral pleural effusions and mild pulmonary vascular congestion. Anasarca. No acute abdominal or pelvic pathology demonstrated on this Limited, noncontrast CT. Electronically Signed: Javier Serrano at 12:00 EST Tel , Service support , Chest X-Ray 10/04/18 11:33 IMPRESSION: Mild improvement as compared to prior studies. Electronically Signed: Henry Browne MD at 15:13 EST Tel [phone], Service support , Consultations 10/01/18 17:15 Consult: Onc/Wound/mechanic general operational test Routine Comment: Reason for Consult:: RLE wound Dr. Arevalo- Cardiology Dr. Hernandez- ID Operations: None Procedures: 2-D Echocardiogram Summary of Care Provided: The patient is a 82 year old F admitted 10/01/2018 due to shortness of breath, lethargy. 1. Acute sepsis secondary to E. coli UTI-patient will continue amoxicillin through 10/09/2018. Sepsis resolved. 2. Acute on chronic hypoxic respiratory failure secondary to acute on chronic diastolic CHF-cardiology consulted. Echocardiogram with EF 65%, stage III diastolic dysfunction, severe pulmonary hypertension with pulmonary artery systolic pressure 75 mmHg. Patient will continue Lasix 40 mg p.o. twice daily. Follow-up with cardiology in 1-2 weeks. Continue supplement oxygen to maintain O2 sat above 90%. 3. 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 Wounds do not appear infected. Continue daily dressing changes. Cleanse wound to right lower leg daily with normal saline, placed Aquacel Ag, cover with dry dressing, wrap with Kerlix. Rashad wrap bilateral lower extremities from toes to just below knees. Fo llow-up with wound center in 1 week. Patient's other past medical history includes chronic atrial fibrillation, chronic COPD, hypothyroidism, anemia of chronic disease, GERD, obesity. Chronic medical conditions stable at this time. General: Alert, Cooperative, no apparent distress HEENT: Atraumatic, PERRLA, EOMI, Normocephalic Neck: Supple, No JVD, Negative Carotid Bruits Lungs: Diminished, no mild faint rales Cardiovascular: Atrial fibrillation, rate controlled Abdomen: Bowel Sounds Present, Soft, Non Tender Extremities: No edema, Capillary Refill Less than 3 Seconds Skin: Chronic bilateral lower extremity venous stasis wounds, ulcerations. Dressings intact Musculoskeletal: No Tenderness to Palpation of Joints or Extremities Neurological: Cranial nerves II-XII grossly intact Psych/Mental Status: Normal Affect, Appropriate Patient seen and examined prior to discharge. Physical assessment as noted above. Patient is stable for discharge with follow up recommendations as noted above. This patient was seen by CHRIS Tinsley under the supervision of Dr. Gutiérrez. - Physical Exam Vital Signs Temp Pulse Resp BP Pulse Ox 97.6 F L 76 18 114/64 96 10/05/18 05:38 10/05/18 09:58 10/05/18 09:58 10/05/18 05:38 10/05/18 09:58 Oxygen Flow Rate (L/min) 3 Oxygen Delivery Method Nasal Cannula Weight: 218 lb 11.177 oz Body Mass Index (BMI) 37.0 Intake and Output for Last 24 Hours 10/03/18 10/04/18 10/05/18 23:59 23:59 23:59 Intake Total 2362 / 2362 1792.2 / 1792.2 60 / 60 Output Total 2925 / 2925 3650 / 3650 400 / 400 Balance -563 / -563 -1857.8 / -1857.8 -340 / -340 Microbiology Past 72 Hours 10/02/18 11:50 Gram Stain - Final Wound - Leg, Right Wound Culture - Final Pseudomonas aeroginosa Proteus mirabilis Escherichia coli Meth. resistant Staph. aureus 10/01/18 11:45 Blood Culture - Preliminary Blood Culture (Wb) - Anticubital Left No growth in 48 hours. 10/01/18 10:40 Blood Culture - Preliminary Blood Culture (Wb) - Anticubital Right No growth in 48 hours. 10/01/18 11:50 Urine Culture - Final Urine Catheter - Vitale Escherichia coli Laboratory Tests Past 24 Hrs 10/04/18 10/05/18 10/05/18 17:02 05:40 05:40 Hgb 10.0 L Hct 33.5 L Sodium 139 Potassium 3.7 Chloride 97 L Carbon Dioxide 38.0 H Anion Gap 4 L BUN 19 H Creatinine 1.02 Estim Creat Clear Calc 38.92 Est GFR (MDRD) Af Amer 67 Est GFR (MDRD) Non-Af 55 L BUN/Creatinine Ratio 18.6 Glucose 87 Calcium 8.0 L Blood Type O POSITIVE Antibody Screen NEGATIVE Crossmatch See Detail Home Medications: Medications to take at Discharge Acetaminophen [Pain Relief Extra Strength] 1,000 mg PO Q8H PRN PRN 04/25/17 Aspirin [Aspir-Low] 81 mg PO QHS 04/25/17 Gabapentin [Neurontin] 300 mg PO BIDCM 04/25/17 Levothyroxine [Synthroid] 100 mcg PO DAILY@0600 08/01/17 Ondansetron [Zofran Odt] 4 mg PO Q8H PRN PRN #90 tab 06/14/18 Pantoprazole Sodium [Protonix] 20 mg PO DAILY tablet 06/14/18 Apixaban [Eliquis] 5 mg PO BID 10/01/18 Ergocalciferol (Vitamin D2) [Drisdol] 50,000 unit PO QWEEK 10/01/18 Hydrocodone Bitart/Apap 5-325 [[place] 5/325] 1 tablet PO Q8H PRN PRN 10/01/18 L. Rhamnosus GG/Inulin [Culturelle Capsule] 1 each PO DAILY 10/01/18 Multivitamin [Multiple Vitamins] 1 each PO DAILY 10/01/18 Polyethylene Glycol 3350 [Miralax] 17 gm PO DAILY 10/01/18 Temazepam [Restoril] 7.5 mg PO DAILY 10/01/18 Amoxicillin [Amoxil] 500 mg PO Q8 capsule 10/05/18 Furosemide [Lasix] 40 mg PO BID@1000,1800 tablet 10/05/18 Ipratropium/Albuterol Sulfate [Duoneb] 3 ml INHALATION Q6H.RT ampul.neb 10/05/18 Menthol/Lanolin/Calamine/Znox [Calmoseptine Ointment] 1 applic TOPICAL BID tube 10/05/18 Primary Care Physician: Mani Myles MD [Primary Care Provider] - Please follow up with your Primary Care Physician in: 3-5 Days Please Follow Up With: Wound Care Center When: 1 Week Please Follow Up With: Abdiel Arevalo MD - May see RECYCLING TECH/PA When: 1-2 Weeks Disposition: [facility] facility Minutes spent on discharge:: 35 Patient Condition:: Stable Medical Necessity - Tobacco Use Smoking Status: Unknown if ever smoked Meaningful Use Info Meaningful Use Diagnoses (Choose all that apply): CHF - CHF RASHAD/ARB ordered at discharge?: Yes Reason RASHAD/ARB not ordered?: Worsening renal dysfunctn Documented LVEF (%): 65
--- NOTE | 2018-10-05 10:48 | PHA.DC.MR ---
Pharmacy Service has performed discharge medication reconciliation for this patient upon transfer to [facility]. The patient's discharge medication list was reviewed for discrepancies and discrepancies were resolved. Home Medications Acetaminophen [Pain Relief Extra Strength] 1,000 mg PO Q8H PRN PRN 04/25/17 Aspirin [Aspir-Low] 81 mg PO QHS 04/25/17 Gabapentin [Neurontin] 300 mg PO BIDCM 04/25/17 Levothyroxine [Synthroid] 100 mcg PO DAILY@0600 08/01/17 Ondansetron [Zofran Odt] 4 mg PO Q8H PRN PRN #90 tab 06/14/18 Pantoprazole Sodium [Protonix] 20 mg PO DAILY tablet 06/14/18 Apixaban [Eliquis] 5 mg PO BID 10/01/18 Ergocalciferol (Vitamin D2) [Drisdol] 50,000 unit PO QWEEK 10/01/18 Hydrocodone Bitart/Apap 5-325 [[place] 5/325] 1 tablet PO Q8H PRN PRN 10/01/18 L. Rhamnosus GG/Inulin [Culturelle Capsule] 1 each PO DAILY 10/01/18 Multivitamin [Multiple Vitamins] 1 each PO DAILY 10/01/18 Polyethylene Glycol 3350 [Miralax] 17 gm PO DAILY 10/01/18 Temazepam [Restoril] 7.5 mg PO DAILY 10/01/18 Amoxicillin [Amoxil] 500 mg PO Q8 capsule 10/05/18 Furosemide [Lasix] 40 mg PO BID@1000,1800 tablet 10/05/18 Ipratropium/Albuterol Sulfate [Duoneb] 3 ml INHALATION Q6H.RT ampul.neb 10/05/18 Menthol/Lanolin/Calamine/Znox [Calmoseptine Ointment] 1 applic TOPICAL BID tube 10/05/18
--- NOTE | 2018-10-05 11:12 | CASEMGMT ---
Patient is ready for discharge back to [facility]. KUMAR called Helena at [facility] and let her know. KUMAR faxed orders to [facility]. KUMAR also called [facility] and arranged for patient to get picked up at 130p via cot. KUMAR called patient's daughter in law who is listed as her emergency contact on both [facility] papers and [facility] demographics. She did not answer so KUMAR left her a voice mail with KUMAR's return number and pick up attendant time. KUMAR left a vm for Helena at [facility] with pick up attendant time. KUMAR notified RN who notified patient. Wirt and battery charger notified. Plan: d/c back to [facility] under skilled level of care. [facility] transported via cot. Loraine ORDONEZ MSW
[2018-10-05 11:54] VITALS: PULSE 77
--- NOTE | 2018-10-05 14:15 | NURSING ---
Student nurse charting reviewed and appropriate.
--- OUTSIDE RECORDS SUMMARY | 2018-11-24 23:18 | XMS RPT_ITS ---
:1935 Author Organization [place] Support Name Relationship Address Phone Lorrie Beltran Unavailable [address] [facility] + [place] [address] Asha Beltran Unavailable [facility] + [place] [address] R Unavailable Unavailable Unavailable Lorrie Beltran Unavailable [facility] + [place] [address] Asha Beltran Unavailable [address] + [place] [address] R Unavailable Unavailable Unavailable Lorrie Beltran Unavailable [address] + [place] [address] Asha Beltran Unavailable [address] + [place] [address] R Unavailable Unavailable Unavailable Lorrie Beltran Unavailable [address] + [place] [address] Asha Beltran Unavailable [address] + [place] [address] R Unavailable Unavailable Unavailable Lorrie eBltran Unavailable [address] + [place] [address] Asha Beltran Unavailable [address] + [place] [address] R Unavailable Unavailable Unavailable Lorrie Beltran Unavailable [address] + [place] [address] Asha Beltran Unavailable [address] + [place] [address] R Unavailable Unavailable Unavailable Lorrie Beltran Unavailable [address] + [place] [address] Devin Asha Unavailable [facility] + [place] [address] R Unavailable Unavailable Unavailable Carley Beltranrick Unavailable [facility] + [place] [address] Devin Asha Unavailable [facility] + [place] [address] R Unavailable Unavailable Unavailable Devin, Lorrie Unavailable [facility] + [place] [address] Devin Asha Unavailable [facility] + [place] [address] R Unavailable Unavailable Unavailable Devin, Lorrie Unavailable [facility] + [place] [address] Devin Asha Unavailable [address] [place] [address] + [place] [address] R Unavailable Unavailable Unavailable Devin, Lorrie Unavailable [address] [place] [address] + [place] [address] Devin Asha Unavailable [address] [place] [address] + [place] [address] R Unavailable Unavailable Unavailable Carley Beltranrick Unavailable [address] [place] [address] + [place] [address] Candelaria Beltrane Unavailable [address] [place] [address] + [place] [address] R Unavailable Unavailable Unavailable DevinCarleyLorrie Unavailable [address] [place] [address] + [place] [address] Devin Asha Unavailable [address] [place] [address] + [place] [address] R Unavailable Unavailable Unavailable Carley Beltranrick Unavailable [facility] + [place] [address] Devin, Asha Unavailable [facility] + [place] [address] R Unavailable Unavailable Unavailable DEVINRONEY NAZARIOEN Unavailable [address] [facility] + [place] [address] DEVINRONEYEN Unavailable Unavailable + DEVIN SHERON Unavailable Unavailable + DEVIN, LORRIE Unavailable Unavailable + DEVIN, LORRIE Unavailable Unavailable + DEVIN, SHERON Unavailable [address] [facility] + [place] [address] DEVIN, SHERON Unavailable Unavailable + DEVIN, SHERON Unavailable Unavailable + DEVIN, LORRIE Unavailable Unavailable + DEVIN, LORRIE Unavailable Unavailable + DEVIN, SHERON Unavailable [address] [facility] + [place] [address] DEVIN, SHERON Unavailable Unavailable + DEVIN, SHERON Unavailable Unavailable + DEVIN, LORRIE Unavailable Unavailable + DEVIN, LORRIE Unavailable Unavailable + DEVIN, SHERON Unavailable [address] [facility] + [place] [address] DEVIN, SHERON Unavailable Unavailable + DEVIN, SHERON Unavailable Unavailable + DEVIN, LORRIE Unavailable Unavailable + DEVIN, LORRIE Unavailable Unavailable + DEVIN, SHERON Unavailable [address] [facility] + [place] [address] DEVIN, SHERON Unavailable Unavailable + DEVIN, SHERON Unavailable Unavailable + DEVIN, LORRIE Unavailable Unavailable + DEVIN, LORRIE Unavailable Unavailable + Devin, Lorrie Unavailable [facility] + [place] [address] Devin, Asha Unavailable [facility] + [place] [address] R Unavailable Unavailable Unavailable Devin, Lorrie Unavailable [facility] + [place] [address] Devin, Asha Unavailable [address] [place] [address] + [place] [address] R Unavailable Unavailable Unavailable Devin, Lorrie Unavailable [facility] + [place] [address] Devin, Asha Unavailable [facility] + [place] [address] R Unavailable Unavailable Unavailable Devin, Lorrie Unavailable [facility] + [place] [address] Devin, Asha Unavailable [facility] + [place] [address] R Unavailable Unavailable Unavailable Devin, Lorrie Unavailable [facility] + [place] [address] Devin, Asha Unavailable [facility] + [place] [address] R Unavailable Unavailable Unavailable Devin, Lorrie Unavailable [facility] + [place] [address] Devin, Asha Unavailable [facility] + [place] [address] R Unavailable Unavailable Unavailable Carley Beltranrick Unavailable [facility] + [place] [address] Devin, Asha Unavailable [facility] + [place] [address] R Unavailable Unavailable Unavailable Carley Beltranrick Unavailable [facility] + [place] [address] Devin, Asha Unavailable [facility] + [place] [address] R Unavailable Unavailable Unavailable Carley Beltranrick Unavailable [facility] + [place] [address] Devin, Asha Unavailable [facility] + [place] [address] R Unavailable Unavailable Unavailable Devin, Lorrie Unavailable [facility] + [place] [address] Devin, Asha Unavailable [facility] + [place] [address] R Unavailable Unavailable Unavailable Devin, Lorrie Unavailable [facility] + [place] [address] Devin, Asha Unavailable [facility] + [place] [address] R Unavailable Unavailable Unavailable Devin, Lorrie Unavailable [facility] + [place] [address] Devin Asha Unavailable [facility] + [place] [address] R Unavailable Unavailable Unavailable Lorrie Beltran Unavailable [facility] + [place] [address] Devin, Asha Unavailable [facility] + [place] [address] R Unavailable Unavailable Unavailable Lorrie Beltran Unavailable [facility] + [place] [address] Devin Asha Unavailable [address] [place] [address] + [place] [address] R Unavailable Unavailable Unavailable Lorrie Belrtan Unavailable [facility] + [place] [address] Devin Asha Unavailable [address] [place] [address] + [place] [address] R Unavailable Unavailable Unavailable Lorrie Beltran Unavailable [facility] + [place] [address] Devin Asha Unavailable [address] [place] [address] + [place] [address] R Unavailable Unavailable Unavailable DEVIN, SHERON Unavailable [address] [place] [address] + [place] [address] DEVIN, SHERON Unavailable Unavailable + DEVIN, SHERON Unavailable Unavailable + CARLEY BELTRANRICK Unavailable Unavailable + DEVIN, LORRIE Unavailable Unavailable + DEVIN, SHERON Unavailable [address] [place], [place] [address]E + [place] [address] DEVIN, SHERON Unavailable Unavailable + DEVIN, SHERON Unavailable Unavailable + DEVIN, LORRIE Unavailable Unavailable + DEVIN, LORRIE Unavailable Unavailable + DEVIN, SHERON Unavailable [address] [place], [place] [address] + [place] [address] DEVIN, SHERON Unavailable Unavailable + LORRIE BELTRAN Unavailable Unavailable + LORRIE BELTRAN Unavailable Unavailable + DEVINSHERON Unavailable Unavailable + Care Team Providers Name Role Carley Sorensen, Saw Attending Unavailable Petrilla, Saw Attending Unavailable Petrilla, Saw Attending Unavailable Petrilla, Saw Attending Unavailable Petrilla, Saw Attending Unavailable Petrilla, Saw Attending Unavailable Curran, Maicol Attending Unavailable Curran, Maicol Attending Unavailable Petrilla, Saw Attending Unavailable Petrilla, Saw Attending Unavailable Petrilla, Saw Attending Unavailable Petrilla, Saw Attending Unavailable Petrilla, Saw Attending Unavailable Petrilla, Saw Attending Unavailable Petrilla, Saw Attending Unavailable Kee, Brody Chi Admitting Unavailable Kee, Brody Chi Attending Unavailable Newman, Mani Primary Care Unavailable Carla Flor Consulting Unavailable Newman, Mani Primary Care Unavailable Jay Nicholas Attending Unavailable Moodispafarrah, Maicol Attending Unavailable Kee, Brody Chi Referring Unavailable Curran, Maicol Attending Unavailable Curran, Maicol Attending Unavailable Curran, Maicol Attending Unavailable Curran, Maicol Attending Unavailable Newman, Mani Primary Care Unavailable Ashelfah, Ghasem Admitting Unavailable White, Fatmata Attending Unavailable David, Jamar Consulting Unavailable Abdiel Arevalo Consulting Unavailable Ashelfah, Ghasem Admitting Unavailable Ashelfah, Ghasem Attending Unavailable Newman, Mani Primary Care Unavailable Ashelfah, Ghasem Consulting Unavailable Ashelfah, Ghasem Admitting Unavailable Newman, Mani Primary Care Unavailable White, Fatmata Consulting Unavailable White, Fatmata Attending Unavailable Ashelfah, Ghasem Admitting Unavailable Newman, Mani Primary Care Unavailable David, Jamar Consulting Unavailable White, Fatmata Attending Unavailable White, Fatmata Consulting Unavailable Ashelfah, Ghasem Admitting Unavailable Newman, Mani Primary Care Unavailable David, Jamar Consulting Unavailable White, Fatmata Attending Unavailable Abdiel Arevalo Consulting Unavailable White, Fatmata Consulting Unavailable Ashelfah, Ghasem Admitting Unavailable Abdiel Arevalo Attending Unavailable Newman, Mani Primary Care Unavailable David, Jamar Consulting Unavailable Abdiel Arevalo Consulting Unavailable White, Fatmata Consulting Unavailable Ashelfah, Ghasem Admitting Unavailable Newman, Mani Primary Care Unavailable David, Jamar Consulting Unavailable White, Fatmata Attending Unavailable Abdiel Arevalo Consulting Unavailable Fatmata Gutiérrez Consulting Unavailable Maicol Curran Attending Unavailable NEWMAN, MANI Hartmann Referring Unavailable NEWMAN, JACY Referring Unavailable LUIS SIMONS (GROUND SYSTEMS ENGINEER) Referring Unavailable LUIS SIMONS, (GROUND SYSTEMS ENGINEER) Referring Unavailable NEWMAN, JACY Referring Unavailable NEWMAN, MANI Hartmann Attending Unavailable NEWMAN, MANI Hartmann Referring Unavailable NEWMAN, MANI Hartmann Referring Unavailable LILI MCNAIR Attending Unavailable LUIS SIMONS (GROUND SYSTEMS ENGINEER) Referring Unavailable TESTRAKE, TY Attending Unavailable TESTRAKE, TY Referring Unavailable ASHWINI, COREY E Referring Unavailable NEWMAN, JACY Referring Unavailable ASHWINI COREY E Referring Unavailable NEWMAN, MANI Hartmann Attending Unavailable JINA [place] ([facility]) Attending Unavailable ASHWINI, COREY E Referring Unavailable NEWMAN, JACY Referring Unavailable TY MILLS Attending Unavailable NEWMAN, MANI Hartmann Referring Unavailable NEWMAN, MANI Hartmann Attending Unavailable NEWMAN, MANI Hartmann Referring Unavailable ASHWINI COREY E Referring Unavailable TESTRAKE, TY Attending Unavailable TESTRAKE, TY Referring Unavailable ASHWINI, COREY E Attending Unavailable ASHWINI, COREY E Referring Unavailable NEWMAN, JACY Referring Unavailable NEWMAN, MANI Hartmann Attending Unavailable BRODY SWEET CHI Referring Unavailable TESTRAKE, TY Attending Unavailable NEWMAN, MANI Hartmann Referring Unavailable NEWMAN ., DR. BLACKWELL Primary Care Unavailable ANA DAVISON MD. CARLA Yan Consulting Unavailable ANA DAVISON MD. CARLA Yan Admitting Unavailable ANA DAVISON MD. CARLA Yan Attending Unavailable PATY DAVISON, DR. BLACKWELL Primary Care Unavailable JUSTIN PADRON MD Admitting Unavailable JUSTIN PADRON MD Attending Unavailable ANA DAVISON MD. CARLA Yan Consulting Unavailable JUSTIN PADRON MD Consulting Unavailable Chelsey Clay MD Attending Unavailable PATY RUIZ., DR. BLACKWELL Primary Care Unavailable JUSTIN PADRON MD Attending Unavailable PATY RUIZ., DR. BLACKWELL Primary Care Unavailable ANA DAVISON MD. CARLA Yan Admitting Unavailable JUSTIN PADRON MD Consulting Unavailable JUSTIN TARIQ Consulting Unavailable FLOWER TREVINO MD Attending Unavailable PATY RUIZ., DR. BLACKWELL Primary Care Unavailable FLOWER TREVINO MD Attending Unavailable PATY RUIZ., DR. BLACKWELL Primary Care Unavailable FLOWER TREVINO MD Admitting Unavailable EUGENIA QURESHI MD, SPRING ZARAGOZA Consulting Unavailable STEFANIE SPEARS MD Consulting Unavailable REGAN RUIZ, STEFANIE De La [place] Attending Unavailable PATY RUIZ., DR. BLACKWELL Primary Care Unavailable YUMI BRAVO MD Consulting Unavailable BENNIE NGUYEN DO Consulting Unavailable REGAN RUIZ, STEFANIE De La Rosa Attending Unavailable REGAN RUIZ, STEFANIE De La [place] Referring Unavailable PATY RUIZ., DR. BLACKWELL Primary Care Unavailable LUIS SIMONS, (GROUND SYSTEMS ENGINEER) Attending Unavailable PATY, JACY Referring Unavailable EHRLUIS HAND, (GROUND SYSTEMS ENGINEER) Attending Unavailable PATY, JACY Referring Unavailable EHRLUIS HAND, (GROUND SYSTEMS ENGINEER) Attending Unavailable PATY, JACY Referring Unavailable EHRLUIS HAND, (GROUND SYSTEMS ENGINEER) Attending Unavailable NEWMAN, JACY Referring Unavailable EHRLUIS HAND, (GROUND SYSTEMS ENGINEER) Attending Unavailable NEWMAN, JACY Referring Unavailable EHRLUIS HAND, (GROUND SYSTEMS ENGINEER) Attending Unavailable NEWMAN, JACY Referring Unavailable GALLITO CLARKE Admitting Unavailable KENYA WILSON () Attending Unavailable LUIS SIMONS, (GROUND SYSTEMS ENGINEER) Attending Unavailable NEWMAN, JACY Referring Unavailable ASHWINI, COREY E Attending Unavailable ASHWINI, COREY E Referring Unavailable ASHWINI, COREY E Referring Unavailable EHRENLUIS, (GROUND SYSTEMS ENGINEER) Attending Unavailable NEWMAN, JACY Referring Unavailable EHRENLUIS, (GROUND SYSTEMS ENGINEER) Referring Unavailable ASHWINI, COREY E Attending Unavailable ASHWINI, COREY E Referring Unavailable EHRENLUIS, (GROUND SYSTEMS ENGINEER) Attending Unavailable LUIS SIMONS, (GROUND SYSTEMS ENGINEER) Referring Unavailable LUIS SIMONS, (GROUND SYSTEMS ENGINEER) Attending Unavailable NEWMAN, JACY Referring Unavailable EHRLUIS HAND, (GROUND SYSTEMS ENGINEER) Attending Unavailable KARISHMA CLEARY Admitting Unavailable CHINTAN DEMPSEY Consulting Unavailable LIZA BARRY Attending Unavailable LUIS SIMONS, (GROUND SYSTEMS ENGINEER) Referring Unavailable XAVIER MERCADO Admitting Unavailable CHELSEY CLAY Referring Unavailable CHINTAN DEMPSEY Consulting Unavailable MADONNA LEE () Attending Unavailable LUIS SIMONS, (GROUND SYSTEMS ENGINEER) Attending Unavailable CHINTAN DEMPSEY Referring Unavailable LUIS SIMONS, (GROUND SYSTEMS ENGINEER) Attending Unavailable ROSELYN, CHINTAN Referring Unavailable LUIS SIMONS, (GROUND SYSTEMS ENGINEER) Attending Unavailable ROSELYN, CHINTAN Referring Unavailable LUIS SIMONS, (GROUND SYSTEMS ENGINEER) Attending Unavailable ROSELYN, CHINTAN Referring Unavailable MARAL CHANEY Admitting Unavailable SHOLA FLORES Attending Unavailable HEATHER LYNN Consulting Unavailable LUIS SIMONS, (GROUND SYSTEMS ENGINEER) Attending Unavailable Paty RUIZ, Mani Primary Care Unavailable COREY MCKEON Attending Unavailable COREY MCKEON Referring Unavailable Paty RUIZ, Mani Primary Care Unavailable COREY MCKEON Attending Unavailable COREY MCKEON Referring Unavailable Paty RUIZ, Mani Primary Care Unavailable COREY MCKEON Referring Unavailable Paty RUIZ, Mani Primary Care Unavailable COREY MCKEON Attending Unavailable COREY MCKEON Referring Unavailable PROBLEMS PROBLEMS DATE TYPE CONDITION / CODE ATTENDING STATUS SOURCE Active Chronic kidney NA Active [facility] disease, stage 3 Clinic Main (moderate) / [place] N18.3(ICD-10) Repository Active Unspecified diastolic NA Active [facility] 8 (congestive) heart Clinic Main failure / [place] I50.30(ICD-10) Repository Active Chronic atrial NA Active [facility] fibrillation / Clinic Main I48.2(ICD-10) [place] Repository Active Hypothyroidism, NA Active [facility] unspecified / Clinic Main E03.9(ICD-10) [place] Repository Active Polyneuropathy, NA Active [facility] unspecified / Clinic Main G62.9(ICD-10) [place] Repository Unknown I48.2 - Chronic atrial Moodispaw, Active [facility] fibrillation / [facility] I48.2(ICD-10) Hospital Repository Unknown R94.31 - Abnormal Moodisp[place], Active [facility] 8 electrocardiogram [facility] [ECG] [EKG] / Hospital R94.31(ICD-10) Repository Unknown I13.0 - Hypertensive [place], Active [facility] 8 heart and chronic [facility] kidney disease with Hospital heart failure and Repository stage 1 through stage 4 chronic kidney disease, or unspecified chronic kidney disease / I13.0(ICD-10) Unknown 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, 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 / I25.10(ICD-10) Unknown R53.81 - Other malaise Kee, Brody Chi Active [facility] / R53.81(ICD-10) [facility] Repository Unknown R13.12 - Dysphagia, Kee, Brody Chi Active [facility] 8 oropharyngeal phase / Community R13.12(ICD-10) Hospital Repository Unknown L97.929 - Non-pressure Kee, Brody Chi Active [facility] 8 chronic ulcer of Community unspecified part of Hospital left lower leg with Repository unspecified severity / L97.929(ICD-10) Active Hyperkalemia / KAILASAM, Active [facility] E87.5(ICD-10) [facility] Other [place] Repository Active Cellulitis of left KAILASAM, Active [facility] lower limb / [facility] Other L03.116(ICD-10) [place] Repository Active Cellulitis of right KAILASAM, Active [facility] lower limb / [facility] Other L03.115(ICD-10) [place] Repository Active Unspecified open KAILASAM, Active [facility] wound, right lower [facility] Other leg, initial encounter [place] / S81.801A(ICD-10) Repository Active Other specified health KAILASAM, Active [facility] status / Z78.9(ICD-10) [facility] Other [place] Repository Active Other specified KAILASAM, Active [facility] / [place] R79.89(ICD-10) Repository Active Abnormal findings on KAILASAM, Active [facility] 8 diagnostic imaging of [facility] Other other specified body [place] structures / Repository R93.8(ICD-10) Active Encounter for ROSA [facility] 8 therapeutic drug level MADONNA STEVENSON) Clinic Other monitoring / [place] Z51.81(ICD-10) 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 MADONNA STEVENSON) Clinic Other / Z79.01(ICD-10) [place] Repository Active Heart failure, NA Active [facility] unspecified / Clinic Main I50.9(ICD-10) [place] Repository Active Non-pressure chronic AHMED, 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[facility] 8 ulcer of unspecified Clinic Other part of right lower [place] leg with fat layer Repository exposed / L97.912(ICD-10) Active Other injury of AHMED, VASEEM [facility] 8 unspecified body Clinic Other region, initial [place] encounter / Repository T14.8XXA(ICD-10) Active Local infection of the AHMED, VASEEM [facility] 8 skin and subcutaneous Clinic Other tissue, unspecified / [place] L08.9(ICD-10) Repository Active Acute kidney failure, AHMED, VASEEM [facility] 8 unspecified / Clinic Other N17.9(ICD-10) [place] Repository Active Lymphedema, not NA [facility] 8 elsewhere classified / Clinic Main I89.0(ICD-10) [place] Repository Active Chronic diastolic NA [facility] 8 (congestive) heart Clinic Main failure / [place] I50.32(ICD-10) Repository Active Unknown / UNK(Unknown) OLDER, JINA [facility] 8 (GROUND SYSTEMS ENGINEER) Clinic Main [place] Repository Active 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 [place] without angina Repository pectoris / I25.10(ICD-10) Active Chronic systolic NA [facility] 8 (congestive) heart Clinic Main failure / [place] I50.22(ICD-10) Repository Active Varicose veins of NA Active [facility] 8 right lower extremity Clinic Main with ulcer of [place] unspecified site / Repository I83.019(ICD-10) Active Varicose veins of NA Active [facility] 8 right lower extremity Clinic Main with other [place] complications / Repository I83.891(ICD-10) Active 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[facility] 8 ulcer of unspecified Clinic Main part of right lower [place] leg with unspecified Repository severity / L97.919(ICD-10) Active Edema, unspecified / NA Active [facility] 8 R60.9(ICD-10) Clinic Main [place] Repository Active Type 2 diabetes NA [facility] 8 mellitus with Clinic Other hyperosmolarity [place] without nonketotic Repository hyperglycemic-hyperosm olar coma ([facility]) / E11.00(ICD-10) Admitting Unknown / UNK(Unknown) ASHWINI, Active [facility] 8 diagnosis [facility] Repository Active Acute on chronic THUESTAD, KENYA Active [facility] 8 diastolic (congestive) A () Clinic Other heart failure / [place] I50.33(ICD-10) Repository Active Essential (primary) NA [facility] 8 hypertension / Clinic Main I10(ICD-10) [place] Repository Active Non-pressure chronic NA [facility] 8 ulcer of unspecified Clinic Main part of left lower leg [place] with fat layer exposed Repository / L97.922(ICD-10) Active Venous insufficiency NA [facility] 8 (chronic) (peripheral) Clinic Main / I87.2(ICD-10) [place] Repository PROCEDURES PROCEDURES No Procedure Records FoundRESULTS RESULTS PROGRESS Observed: 10/18/2018 Status: COMPLETED Source: [facility] 8:33 AM [facility] REPOSITORY O ID: [id number] Author: Volodymyr Gilbert Service: (none) Author Type: Coal Cutting Machine Operator Type: Progress Notes Filed: 10/18/2018 8:34 AM Note Text: I spoke with Emilee at [facility] and she states there are no discharge plans at this time. CBC-COMPLETE BLOOD CNT Collected: 10/16/2018 Status: F Source: [facility] NO DIFF 8:20 AM [facility] REPOSITORY Order Comment: 113 TYPE CODE TESTS RESULT OUT OF RANGE REFERENCE UNITS LAB L100.1000 4.4-11.0 K/mm3 Normal WBC 6.7 LAB L100.1200 4.2-5.4 M/mm3 Low RBC 3.60 LAB L100.1300 12.0-15.0 g/dl Low HGB 10.1 LAB L100.1400 37-47 % Low HCT 34.6 LAB L100.1500 81-99 fL Normal MCV 96.1 LAB L100.1600 27.0-32.0 pg Normal MCH 28.1 LAB L100.1700 32-36 g/gl Low MCHC 29.2 LAB L100.1810 11.6-14.6 % High RDW CV 16.7 LAB L100.1820 35.1-43.9 fl High RDW SD 58.7 LAB L100.1900 150-450 K/mm3 Normal PLT 288 LAB L100.2000 6.2-12.0 fl Normal MPV 10.1 Performed By: #### L100.0500 #### [facility] [address] [place], [address] BASIC METABOLIC Collected: 10/16/2018 Status: F Source: [facility]ODGES PROFILE ([facility]) 8:20 AM [facility] REPOSITORY Order Comment: 113 TYPE CODE TESTS RESULT OUT OF RANGE REFERENCE UNITS LAB L501.0100 74-106 mg/dL Normal GLU 96 Result Comment: Please note revised GLUCOSE reference range effective 2017. LAB L501.1000 7-18 mg/dL High BUN 22 LAB L501.1100 0.55-1.02 mg/dL Normal CREAT,SERUM 1.00 Result Comment: The validity of the calculated GFR AND GFRAA in patients over 70 years has not been determined. Clinical correlation is essential. LAB L501.1110 >60 mL/min Low EST GFR 56 Result Comment: Non- GFR Calc LAB L501.1115 >60 mL/min Normal EST GFR - AA 68 Result Comment: GFR Calc LAB L501.1300 10-20 RATIO High BUN/CRE 22.0 LAB L501.2200 8.5-10.1 mg/dL CA Normal 8.6 LAB L501.5300 136-145 mmol/L NA Normal 139 LAB L501.5600 3.5-5.1 mmol/L K Normal 4.5 LAB L501.5900 98-107 mmol/L Low CL 96 LAB L501.6100 21.0-32.0 mmol/L High CO2 37.0 LAB L501.6200 5-15 Normal GAP 6 Performed By: #### L500.2500 #### [facility] Laboratory [address] [place], [place], [id number] PROGRESS Observed: 10/11/2018 Status: COMPLETED Source: SALAZAR 8:55 AM [facility] REPOSITORY HNO ID: [id number] Author: Volodymyr Gilbert Service: (none) Author Type: Coal Cutting Machine Operator Type: Progress Notes Filed: 10/11/2018 8:55 AM Note Text: I spoke with Kd @ [facility] and she states there's no discharge plans in place at this time. CBC-COMPLETE BLOOD CNT Collected: 10/10/2018 Status: F Source: HODGES NO DIFF 6:35 AM [facility] REPOSITORY Order Comment: 113 TYPE CODE TESTS RESULT OUT OF RANGE REFERENCE UNITS LAB L100.1000 4.4-11.0 K/mm3 Normal WBC 6.1 LAB L100.1200 4.2-5.4 M/mm3 Low RBC 3.40 LAB L100.1300 12.0-15.0 g/dl Low HGB 9.5 LAB L100.1400 37-47 % Low HCT 32.7 LAB L100.1500 81-99 fL Normal MCV 96.2 LAB L100.1600 27.0-32.0 pg Normal MCH 27.9 LAB L100.1700 32-36 g/gl Low MCHC 29.1 LAB L100.1810 11.6-14.6 % High RDW CV 16.5 LAB L100.1820 35.1-43.9 fl High RDW SD 58.1 LAB L100.1900 150-450 K/mm3 Normal PLT 258 LAB L100.2000 6.2-12.0 fl Normal MPV 9.8 Performed By: #### L100.0500 #### [facility] Laboratory [address] [place], [place], [address] BNP,B-TYPE NATRIURETIC Collected: 10/10/2018 Status: F Source: VALE PEPTIDE 6:35 AM [facility] REPOSITORY Order Comment: 113 TYPE CODE TESTS RESULT OUT OF RANGE REFERENCE UNITS LAB L503.6620 0-100 pg/mL High B-TYPE 328.3 HERMELINDA PEP Performed By: #### L503.6620 #### [facility] Laboratory [address] [place], [place], [address] CBC-COMPLETE BLOOD CNT Collected: 10/07/2018 Status: F Source: VALE NO DIFF 7:20 AM [facility] REPOSITORY TYPE CODE TESTS RESULT OUT OF RANGE REFERENCE UNITS LAB L100.1000 4.4-11.0 K/mm3 Normal WBC 7.4 LAB L100.1200 4.2-5.4 M/mm3 Low RBC 3.70 LAB L100.1300 12.0-15.0 g/dl Low HGB 10.6 LAB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 Drugs: None Review of Systems - Review of Systems General: Denies: Fever, Night Sweats, Fatigue Cardiovascular: Reports: Shortness of Breath, Shortness of Breath at Rest. Denies: Chest Discomfort, Orthopnea, PND, Peripheral Edema, Palpitations, Lightheadedness, Dizziness, Near Syncope, Syncope Respiratory: Denies: Cough, Sputum Production, Hemoptysis Gastrointestinal: Denies: Hematemesis, Hematochezia, Melena Genitourinary: Denies: Dysuria, Hematuria Skin: Denies: Rash Subjectve: Patient sitting up in bed, positive conversational dyspnea. Objective: Vital Signs Temp Pulse Resp BP Pulse Ox 97.8 F 72 16 126/76 H 96 10/04/18 15:43 10/04/18 15:43 10/04/18 15:43 10/04/18 15:43 10/04/18 15:43 Oxygen Flow Rate (L/min) 3 Oxygen Delivery Method Nasal Cannula Weight: 220 lb 14.451 oz Body Mass Index (BMI) 37.0 Intake and Output for Last 24 Hours General: Awake, Alert, Oriented x 3 HEENT: PERRL, EOMI, Sclera Non Icteric Neck: Supple, Good ROM, No Lymph Node Enlargement Lungs: Rales - Right Base, Dullness to Percussion-Right Cardiovascular: Irregular Rhythm, Normal S1, No Rubs, No Gallops, Prominent P2 Murmur Murmur: Grade 2/6, Holosystolic Vascular: No Carotid Bruits, Normal Femoral Pulses, Normal Radial Pulses, Normal Dorsalis Pedal Pulse, Normal Posterior Tibial Pulses Abdomen: Bowel Sounds Present, Soft, Non Tender, No HSM, No Organomegaly Extremities: No Cyanosis, No Clubbing, Bilateral Edema +2 Neurological: No Focal Motor or Sensory Deficit 10/04/18 06:15: Hgb 8.8 L, Hct 30.4 L 10/04/18 06:15: Sodium 138, Potassium 3.7, Chloride 99, Carbon Dioxide 35.0 H, Anion Gap 4 L, BUN 20 H, Creatinine 1.14 H, Est GFR (MDRD) Af Amer 59 L, Est GFR (MDRD) Non-Af 49 L, BUN/Creatinine Ratio 17.5, Glucose 108 H, Calcium 7.7 L Rhythm: EKG: ECHO: Stress Test: Cardiac Cath: PCI: CT Surgery: Holter monitor: EPS: PPM: CXR: Chest CT Scan: Assessment/Plan 1. Anasarca: The patient has anasarca demonstrated on her physical exam as well as confirmed by CT scan. This is most likely a result of malnutrition and poor albumin and oncotic pressure. She also was found to have evidence of severe pulmonary hypertension by echocardiogram with PA pressures are greater than 80 mmHg. Diuresis of an individual like this in the face of severe pulmonary hypertension and normal LV function may be somewhat problematic as she is preload dependent. She is currently on IV Lasix 40 mg 3 times daily. Would recommend continuing this at this rate, in the hopes that we can continue to offload the pressure in her lungs although this may be problematic and may experience hypotension. In order to compensate for this I would consider transfusing her 1 unit of PRBCs to assist with increasing oncotic pressure, and extracting third space fluid for diuresis. This would obviously only be a temporary fix given her low albumin, malnutrition, and hypermetabolic state given her skin ulcers. If the patient begins to decrease her blood pressure with IV diuretics, I would stop IV diuretic therapy and switch her to p.o. diuretic therapy such as Lasix 40 mg p.o. twice daily. 2. Coronary artery disease: The patient apparently had a myocardial infarction many years ago and reports that she has a stent on the right side. 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 Would not recommend stress testing at this time. She is currently on baby aspirin and Eliquis and any attempts for catheterization would require at least 3 days off of Eliquis to assure groin stability. Would not recommend any stress testing until after her lower extremity infection has resolved. 3. Atrial fibrillation: Currently in atrial fibrillation with controlled ventricular response. Again I believe a unit of PRBCs may be beneficial to assist with her heart rate. Continue Eliquis therapy. 4. Pleural effusion: The patient has evidence of a pleural effusion by both echocardiogram and CT scan. It does not appear to be large enough to perform a thoracentesis which would require cessation of her Eliquis for at least 3 days time. Would recommend continuing to monitor this. 5. Thank you very much for the opportunity to precipitate the cardiac care of your patient. Rotation time took place between 130 and 2 PM. Code Visit Inpatient E AND M: 22125 Init Hosp L2 10/04/18 1558 <Electronically signed by Abdiel Arevalo MD> Date Abdiel Arevalo MD Cosigner Signature (if applicable): Date CC: Abdiel Arevalo MD; Jamar Hernandez M.D.; Mani Newman MD Signed CONSULTATION Observed: 10/04/2018 Status: F Source: [place] 9:24 AM [facility] REPOSITORY [facility] Medical Records Department [address] [address] Consultation 10/04/18919 MR#: [id number] Acct: [id number] Name: ROSA BELTRAN Rep #: [id number] : 1935 82 From: Jamar Hernandez MD PCP: Mani Newman MD Status: ADM IN Y Location: [place] [address] Reason for Consult: Cystitis and chronic right leg wound ulcer Consulted by: Dr. Gutiérrez History of Present Illness: The patient is a 82 year old F [] This is an 82-year-old white female with multiple comorbidities and lives in an extended care facility patient was admitted with progressive shortness of breath and evidence of congestive heart failure and rapid atrial fibrillation. A Vitale catheter was placed and aggressive diuresis was done. Patient also has a chronic lower extremity ulcer and has been managed by wound care center. In talking the patient she does state of some gastrointestinal distress mainly nausea and constipation. No chest pain. She currently has a Vitale catheter but denies any dysuria prior to coming to the hospital. Patient is a reasonable historian but is unclear of the specific details. Interestingly her urine culture did grow E. coli ampicillin sensitive and multiple pathogens from her right leg wound ulcer. Patient is currently on vancomycin and Zosyn. 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) Vitamin D deficiency (Chronic) Neuropathy (Chronic) Malnutrition (Chronic) Leg ulcer, left (Chronic) Lymphedema of lower extremity (Chronic) Congestive heart failure (Chronic) History of myocardial infarction (Chronic) Incontinence of urine (Chronic) Hypertension (Chronic) Morbid obesity (Chronic) Hypothyroidism (Chronic) Hypercholesterolemia (Chronic) Osteoarthritis (arthritis due to wear and tear of joints) (Chronic) Rheumatoid arthritis (Chronic) Allergies/Adverse Reactions: Allergies No Known Allergies Allergy (Verified 06/05/18 13:06) Home Medications: Ambulatory Orders Medication Instructions Recorded Acetaminophen [Pain Relief Extra 1,000 mg PO Q8H PRN PRN 04/25/17 Vital Signs Temp Pulse Resp BP Pulse Ox 98.9 F 99 18 141/83 H 94 10/04/18 03:19 10/04/18 03:19 10/04/18 03:19 10/04/18 03:19 10/04/18 03:19 Oxygen Flow Rate (L/min) 3 Oxygen Delivery Method Nasal Cannula Weight: 102.2 kg Body Mass Index (BMI) 37.0 Microbiology Past 72 Hours 10/02/18 11:50 Gram Stain - Final Wound - Leg, Right Wound Culture - Preliminary Laboratory Tests Past 24 Hrs Hgb 8.8 L Hct 30.4 L Sodium 138 Potassium 3.7 Chloride 99 Carbon Dioxide 35.0 H Anion Gap 4 L - Other Studies Radiology: [] Other Studies: [] Route of nutrition/ use of supplements: [] Nutritional Intake: [] IV Site: [] Vitale Catheter: [] Alert chronically ill-appearing no acute distress she is obese female lungs have some bibasilar crackles heart exam S1-S2 abdomen is obese but soft I did take down both of her leg dressings with the help of a nurse. She does have an ulcer in her right posterior leg which is bloody does not look infected there is no surrounding erythema the skin and soft tissue surrounding the ulcer look normal. Left leg looks benign. - Assessment/Plan Antibiotics: [] Assessment/Plan: [] Patient with E. coli cystitis, she also has chronic right leg ulcer but does not look infected. At this point I would treat the cystitis with oral amoxicillin 500 mg 3 times daily for 5 more days. I would discontinue parenteral antimicrobial therapy. I discussed this management with Dr. Gutiérrez this morning. 10/04/18 0982 <Electronically signed by Jamar Hernandez MD> Date Jamar Hernandez MD Cosigner Signature (if applicable): Date CC: Abdiel Arevalo MD; Jamar Hernandez M.D.; Mani Newman MD Signed CHEST PA AND LATERAL Observed: 10/04/2018 Status: F Source: [place] 9:24 AM [facility] REPOSITORY [facility] Imaging Services [address] [place] [address] Chest PA and Lateral MR#: [id number] Acct: [id number] Name: ROSA BELTARN Rep #: [id number] : 1935 F 82 From: Henry Browne MD PCP: Mani Newman MD Status: ADM IN Study: Chest PA and Lateral Date of Exam: 10/04/18 Exam# [id number] Ordering Dr: Fatmata Gutiérrez STUDY: X-RAY CHEST REASON FOR EXAM: Female, 82 years old. Shortness of breath. CHF and sepsis. TECHNIQUE: AP and lateral views of the chest. COMPARISON: Comparison is made with prior study dated October 01, 2018. FINDINGS: EKG electrodes are seen. Stable chronic interstitial increased markings with superimposed CHF. There is been mild improvement as compared to prior study. Blunting of both costophrenic angles posteriorly. There is moderate cardiac enlargement. Normal mediastinum and arnulfo. Normal visualized pulmonary arteries. There is atherosclerotic calcification of the aortic arch with tortuosity. There are diffuse degenerative changes of the visualized thoracic spine. Normal visualized ribs, clavicles, and shoulders. There is no demonstrated abnormality of the visualized soft tissue structures of the upper abdomen. RAD/Chest PA and Lateral IMPRESSION: Mild improvement as compared to prior studies. Electronically Signed: Henry Browne MD at 15:13 EST Tel [phone], Service support , CC: Fatmata Gutiérrez; Mani Newman MD Stereotype Finisher: Signed PROGRESS Observed: 10/04/2018 Status: COMPLETED Source: [place] 8:39 AM [facility] REPOSITORY HNO ID: [id number] Author: Volodymyr Gilbert Cma Service: (none) Author Type: (none) Type: Progress Notes Filed: 10/04/2018 8:41 AM Note Text: No discharge plans at this time. HH, HEMOGLOBIN AND Collected: 10/04/2018 Status: F Source: [place] HEMATOCRIT 6:15 AM [facility] REPOSITORY TYPE CODE TESTS RESULT OUT OF RANGE REFERENCE UNITS LAB L100.1300 12.0-15.0 g/dl Low HGB 8.8 LAB L100.1400 37-47 % Low HCT 30.4 Performed By: #### L100.0600 #### [facility] Laboratory [address] [place], [place], [address] BASIC METABOLIC Collected: 10/04/2018 Status: F Source: [place] PROFILE (BMP) 6:15 AM [facility] REPOSITORY TYPE CODE TESTS RESULT OUT OF RANGE REFERENCE UNITS LAB L501.0100 74-106 mg/dL High GLU 108 Result Comment: Fasting Glucose result from 100 to 125 mg/dL suggests IMPAIRED HOMEOSTASIS per A.D.A. criteria. Please note revised GLUCOSE reference range effective 2017. LAB L501.1000 7-18 mg/dL High BUN 20 LAB L501.1100 0.55-1.02 mg/dL High CREAT,SERUM 1.14 Result Comment: The validity of the calculated GFR AND GFRAA in patients over 70 years has not been determined. Clinical correlation is essential. LAB L501.1110 >60 mL/min Low EST GFR 49 Result Comment: Non- GFR Calc LAB L501.1115 >60 mL/min Low EST GFR - AA 59 Result Comment: GFR Calc LAB L501.1255 ml/min Normal Estimated CRCL 34.83 LAB L501.1300 10-20 RATIO Normal BUN/CRE 17.5 LAB L501.2200 8.5-10 mg/dL Low .1 CA 7.7 LAB L501.5300 136-14 mmol/L Normal 5 NA 138 LAB L501.5600 3.5-5. mmol/L Normal 1 K 3.7 LAB L501.5900 98-107 mmol/L Normal CL 99 LAB L501.6100 21.0-3 mmol/L High 2.0 CO2 35.0 LAB L501.6200 5-15 Low GAP 4 Performed By: #### L500.2500 #### [facility] Laboratory [address] [facility] [place], [address] 12 LEAD ELECTROCARDIOGRAM Observed: 10/03/2018 Status: F Source: [place] 3:01 PM [facility] REPOSITORY [facility] Cardiovascular Services [address] [place] [address] 12 Lead EKG 10/01/18 1108 MR#: [id number] Acct: [id number] Name: ROSA BELTRAN Rep #: [id number] : 1935 82 From: Maicol Hawk MD Attending Dr: Fatmata Gutiérrez Status: ADM IN Ordering Dr: Abdiel Aldrich MD Date: 10/01/18 Location: [facility] Sex: F N Admitted: 10/01/18 Test Reason : SOB Blood Pressure : / mmHG Vent. Rate : 103 BPM Atrial Rate : 300 BPM P-R Int : 000 ms QRS Dur : 092 ms QT Int : 326 ms P-R-T Axes : 000 096 000 degrees QTc Int : 427 ms Atrial fibrillation with rapid ventricular response with premature ventricular or aberrantly conducted complexes Rightward axis Low voltage QRS Incomplete right bundle branch block Nonspecific T wave abnormality Abnormal ECG Confirmed by JOSIAH RUIZ, MAICOL ([id number]), make up editor LAURA JAMES ([id number]) on 10/03/2018 3:01:07 PM Referred By: DC Confirmed By:MAICOL HAWK MD 10/03/18 1501 Date Maicol Hawk MD CC: Fatmata Gutiérrez; Abdiel Aldrich MD; Mani Newman MD Signed BASIC METABOLIC Collected: 10/03/2018 Status: F Source: [place] PROFILE (BMP) 6:10 AM [facility] REPOSITORY TYPE CODE TESTS RESULT OUT OF RANGE REFERENCE UNITS LAB L501.0100 74-106 mg/dL Normal GLU 81 Result Comment: Please note revised GLUCOSE reference range effective 2017. LAB L501.1000 7-18 mg/dL High BUN 20 LAB L501.1100 0.55-1.02 mg/dL High CREAT,SERUM 1.11 Result Comment: The validity of the calculated GFR AND GFRAA in patients over 70 years has not been determined. Clinical correlation is essential. LAB L501.1110 >60 mL/min Low EST GFR 50 Result Comment: Non- GFR Calc LAB L501.1115 >60 mL/min Normal EST GFR - AA 61 Result Comment: GFR Calc LAB L501.1255 ml/min Normal Estimated CRCL 35.77 LAB L501.1300 10-20 RATIO Normal BUN/CRE 18.0 LAB L501.2200 8.5-10 mg/dL Low .1 CA 7.9 LAB L501.5300 136-14 mmol/L Normal 5 NA 139 LAB L501.5600 3.5-5. mmol/L Normal 1 K 4.2 LAB L501.5900 98-107 mmol/L Normal CL 100 LAB L501.6100 21.0-3 mmol/L High 2.0 CO2 33.0 LAB L501.6200 5-15 Normal GAP 6 Performed By: #### L500.2500 #### [facility] Laboratory [address] [place], [address] CBC W/DIFF, AUTOMATED Collected: 10/03/2018 Status: F Source: [place] 6:10 AM [facility] REPOSITORY TYPE CODE TESTS RESULT OUT OF RANGE REFERENCE UNITS LAB L100.1000 4.4-11.0 K/mm3 Normal WBC 7.4 LAB L100.1200 4.2-5.4 M/mm3 Low RBC 3.13 LAB L100.1300 12.0-15.0 g/dl Low HGB 8.8 LAB L100.1400 37-47 % Low HCT 30.1 LAB L100.1500 81-99 fL Normal MCV 96.2 LAB L100.1600 27.0-32.0 pg Normal MCH 28.1 LAB L100.1700 32-36 g/gl Low MCHC 29.2 LAB L100.1810 11.6-14.6 % High RDW CV 16.9 LAB L100.1820 35.1-43.9 fl High RDW SD 56.7 LAB L100.1900 150-450 K/mm3 Normal PLT 189 LAB L100.2000 6.2-12.0 fl Normal MPV 10.0 LAB L100.2100 47-70 % High NEUT% 71.8 LAB L100.2200 19-41 % Normal LY% 21.2 LAB L100.2300 0-10 % Normal MONO% 4.4 LAB L100.2400 0-5 % Normal EO% 2.2 LAB L100.2500 0-1 % Normal BASO% 0.3 LAB L100.2550 0.0-0.9 % Normal IM GRAN % 0.100 Result Comment: IG% - Immature Granulocytes (promyelocytes, myelocytes and metamyelocytes) > 1% indicates that a LEFT SHIFT is Present. LAB L100.2620 2.0-7.7 X10 3/uL Normal Absolute Neut 5.3 LAB L100.2720 0.83-4.51 X10 3/ul Normal Absolute Lymph 1.58 Performed By: #### L100.0100 #### [facility] Laboratory [address] [place], [address] ECHOCARDIOGRAM COMPLETE Observed: 10/02/2018 Status: F Source: [place] 12:07 PM [facility] REPOSITORY [facility] Cardiovascular Services [address] [place] [address] Echo Complete 10/02/18 1022 MR#: [id number] Acct: [id number] Name: ROSA BELTRAN Giselle Rep #: [id number] : 1935 82 From: Basil Fermin MD Attending Dr: Fatmata Gutiérrez Status: ADM IN Ordering Dr: Olivia Lees MD Date: 10/01/18 Location: [facility] Sex: F N Admitted: 10/01/18 Reason For Study: CHF Procedure This was a 2D Doppler, Color Flow transthoracic echocardiogram. Exam performed portable in patient room. Left Ventricle Normal LV size. Moderate concentric left ventricular hypertrophy. D shaped septum in systole and diastole. Left ventricular systolic function is normal. The estimated ejection fraction is 65 %. Transmitral and pulmonary venous doppler flow suggestive of impaired relaxation of left ventricle. Stage 3 diastolic dysfunction. No regional wall motion abnormalities noted. Right Ventricle Normal RV size. Normal systolic function. Atria The left atrium is moderately enlarged. The right atrium is mildly enlarged. Probable chiari network. Mitral Valve Bileaflet diffuse mitral valve thickening. Tricuspid Valve Normal tricuspid valve. Moderately severe (3+) tricuspid valve insufficiency. Pulmonary artery systolic pressure is 75 mmHg. Severe pulmonary hypertension. Aortic Valve Trisinus/trileaflet aortic valve. Mild focal aortic valve calcification. Mobile lambls excrescence on non coronary cusp. Mild aortic stenosis. Pulmonic Valve Normal pulmonic valve. Mild-Moderate (1-2+) pulmonic valve insufficiency. Great Vessels Calcified aortic root. Mildly dilated aortic root. The pulmonary artery is normal size. Inferior vena cava collapse with respiration. Pericardium/Pleural No pericardial effusion. MMode/2D Measurements AND Calculations LVIDd: 4.1 cm IVSd: 1.5 cm LVOT diam: 2.0 cm LVIDs: 2.3 cm LVPWd: 1.6 cm LVOT area: 3.2 cm2 RVDd: 4.5 cm FS: 42.7 % Ao root diam: 4.0 cm LAV(MOD-bp): 103.3 ml LVAd ap4: 18.2 cm2 LAV(MOD-bp) Indexed: 48.7 ml/m2 EDV(MOD-sp4): 40.0 ml LAV(MOD-sp2): 113.4 ml EDV(sp4-el): 41.1 ml LAV(MOD-sp4): 93.6 ml LVAs ap4: 7.5 cm2 ESV(MOD-sp4): 8.8 ml ESV(sp4-el): 8.8 ml EF(MOD-sp4): 77.9 % EF(sp4-el): 78.7 % SV(MOD-sp4): 31.2 ml SV(sp4-el): 32.3 ml LA A4 area: 29.9 cm2 LA dimension(2D): 5.2 cm RA A4 area: 24.4 cm2 Doppler Measurements AND Calculations MV E max terrence: 96.6 cm/sec Lat Peak E' Terrence: 9.6 cm/sec Med Peak E' Terrence: 5.8 cm/sec MV A max terrence: 23.1 cm/sec E/E' lat: 10.1 E/E' med: 16.6 MV E/A: 4.2 Ao V2 max: 221.2 cm/sec LV V1 max: 134.5 cm/sec SV(LVOT): 83.1 ml Ao max P.6 mmHg LV V1 max P.3 mmHg Ao V2 mean: 142.7 cm/sec LV V1 mean P.7 mmHg Ao mean P.3 mmHg LV V1 mean: 91.7 cm/sec Ao V2 VTI: 43.2 cm LV V1 VTI: 26.3 cm GAUTAM(I,D): 1.9 cm2 GAUTAM(V,D): 1.9 cm2 PA V2 max: 95.6 cm/sec PI end-d terrence: 156.1 cm/sec TR max terrence: 415.9 cm/sec TR max P.2 mmHg Interpretation Summary Normal LV size. Moderate concentric left ventricular hypertrophy. Left ventricular systolic function is normal. The estimated ejection fraction is 65 %. Stage 3 diastolic dysfunction. Mild focal aortic valve calcification. Mobile lambls excrescence on non coronary cusp - unlikely to be vegetation Ordering Physician: Olivia Lees Referring Physician: Mani Newman Performed By: Sharlene Doss, AMI, RVT 10/02/18 1206 Date Basil Fermin MD CC: Fatmata Gutiérrez; Olivia Lees; Mani Newman MD Date Dictated: 10/02/18 1022 Date Transcribed: 10/02/18 1206 Stereotype Finisher: Signed MRSA WOUND DNA BY Collected: 10/02/2018 Status: F Source: [facility] PCR 11:50 AM [facility] REPOSITORY Order Comment: Specimen Source? LEG TYPE CODE TESTS RESULT OUT OF REFERENCE UNITS RANGE LAB L8200.1100 Negative High MRSA POSITIVE RESULT Result Comment: CALLED TO Samir MEDRANO 10/02/18 1612 BY CPOPIEL. GARCIA. LAB L8200.1150 Negative High SA RESULT POSITIVE Performed By: #### L8200.1075 #### [facility] Laboratory [address], [address] Observed: 10/02/2018 Status: F Source: [place] CULTURE, WOUND 11:50 AM [facility] REPOSITORY Gram Stain Gram Stain 1+ White Blood Cells 2+ Gram negative rods Wound Culture Copy of report sent to Infection Control Printer [id number] 10/05/18 0657 BINUSURAJ. ORGANISM 1: Pseudomonas aeroginosa Amount Growth 3+ ORGANISM 2: Proteus mirabilis Amount Growth 1+ ORGANISM 3: Escherichia coli Amount Growth Rare ORGANISM 4: Meth. resistant Staph. aureus Amount Growth 2+ Pseudomonas aeroginosa: REACTION Aztreonam $$$ 17 I Pseudomonas aeroginosa: REACTION Amikacin $ 4 S Cefepime $ >=64 R Ceftazidime *NF >=64 R Ciprofloxacin $ <=0.25 S Gentamicin $ <=1 S Imipenem *NF >=16 R Levofloxacin $ 1 S Meropenem $ >=16 R Tobramycin $ <=1 S (NF) indicates non-formulary drug at [facility]. Approval by Infectious Disease Specialist required before non-formulary drugs may be ordered and/or dispensed. Proteus mirabilis: REACTION Amoxacillin/Clavulanic Acid $ 4 S Ampicillin $ >=32 R Ampicillin/Sulbactam $ 8 S Cefazolin $ 8 S Cefepime $ <=1 S Ceftriaxone $ <=1 S Ciprofloxacin $ >=4 R Ertapenim $$$ <=0.5 S Gentamicin $ <=1 S Levofloxacin $ >=8 R Piperacillin/Tazobactam $$ <=4 S Tobramycin $ <=1 S Trimethoprim/Sulfametho $ >=320 R (NF) indicates non-formulary drug at [facility]. Approval by Infectious Disease Specialist required before non-formulary drugs may be ordered and/or dispensed. Escherichia coli: REACTION Amoxacillin/Clavulanic Acid $ 4 S Ampicillin $ 4 S Ampicillin/Sulbactam $ 4 S Cefazolin $ <=4 S Cefepime $ <=1 S Ceftriaxone $ <=1 S Ciprofloxacin $ <=0.25 S ESBL - Ertapenim $$$ <=0.5 S Gentamicin $ <=1 S Imipenem *NF <=0.25 S Levofloxacin $ <=0.12 S Piperacillin/Tazobactam $$ <=4 S Tobramycin $ <=1 S Trimethoprim/Sulfametho $ <=20 S (NF) indicates non-formulary drug at [facility]. Approval by Infectious Disease Specialist required before non-formulary drugs may be ordered and/or dispensed. Meth. resistant Staph. aureus: REACTION Benzylpenicillin NF >=0.5 R Cefoxitin *NF + Clindamycin $$ <=0.25 S Inducable Clindamycin Resistan - Erythromycin $ >=8 R Gentamicin $ <=0.5 S Levofloxacin $ 4 I Linezolid $$$$ 2 S Oxacillin NF 2 R Tigecycline $$$$ <=0.12 S Rifampin $$ <=0.5 S Tetracycline NF <=1 S Trimethoprim/Sulfametho $ <=10 S Vancomycin $ 1 S (NF) indicates non-formulary drug at [facility]. Approval by Infectious Disease Specialist required before non-formulary drugs may be ordered and/or dispensed. * CLSI guidelines does not recommend testing of cephalosporins. This interpretation is deduced from Beta-lactam/penicillin results. Performed By: #### M100.1400 #### [facility] [address], [address] CBC W/DIFF, AUTOMATED Collected: 10/02/2018 Status: F Source: HODGES 6:20 AM [facility] REPOSITORY TYPE CODE TESTS RESULT OUT OF RANGE REFERENCE UNITS LAB L100.1000 4.4-11.0 K/mm3 High WBC 11.7 LAB L100.1200 4.2-5.4 M/mm3 Low RBC 3.19 LAB L100.1300 12.0-15.0 g/dl Low HGB 8.8 LAB L100.1400 37-47 % Low HCT 30.4 LAB L100.1500 81-99 fL Normal MCV 95.3 LAB L100.1600 27.0-32.0 pg Normal MCH 27.6 LAB L100.1700 32-36 g/gl Low MCHC 28.9 LAB L100.1810 11.6-14.6 % High RDW CV 16.9 LAB L100.1820 35.1-43.9 fl High RDW SD 58.4 LAB L100.1900 150-450 K/mm3 Normal PLT 178 LAB L100.2000 6.2-12.0 fl Normal MPV 9.3 LAB L100.2100 47-70 % High NEUT% 77.4 LAB L100.2200 19-41 % Low LY% 17.9 LAB L100.2300 0-10 % Normal MONO% 4.2 LAB L100.2400 0-5 % Normal EO% 0.2 LAB L100.2500 0-1 % Normal BASO% 0.1 LAB L100.2550 0.0-0.9 % Normal IM GRAN % 0.200 Result Comment: IG% - Immature Granulocytes (promyelocytes, myelocytes and metamyelocytes) > 1% indicates that a LEFT SHIFT is Present. LAB L100.2620 2.0-7.7 X10 3/uL High Absolute Neut 9.1 LAB L100.2720 0.83-4.51 X10 3/ul Normal Absolute Lymph 2.09 Performed By: #### L100.0100 #### [facility] [place], [place], [id number] BASIC METABOLIC Collected: 10/02/2018 Status: F Source: HODGES PROFILE (BMP) 6:20 AM [facility] REPOSITORY TYPE CODE TESTS RESULT OUT OF RANGE REFERENCE UNITS LAB L501.0100 74-106 mg/dL Normal GLU 81 Result Comment: Please note revised GLUCOSE reference range effective 2017. LAB L501.1000 7-18 mg/dL Normal BUN 17 LAB L501.1100 0.55-1.02 mg/dL Normal CREAT,SERUM 1.00 Result Comment: The validity of the calculated GFR AND GFRAA in patients over 70 years has not been determined. Clinical correlation is essential. LAB L501.1110 >60 mL/min Low EST GFR 57 Result Comment: Non- GFR Calc LAB L501.1115 >60 mL/min Normal EST GFR - AA 69 Result Comment: GFR Calc LAB L501.1255 ml/min Normal Estimated CRCL 38.10 LAB L501.1300 10-20 RATIO Normal BUN/CRE 17.1 LAB L501.2200 8.5-10 mg/dL Low .1 CA 8.0 LAB L501.5300 136-14 mmol/L Normal 5 NA 139 LAB L501.5600 3.5-5. mmol/L Normal 1 K 4.2 LAB L501.5900 98-107 mmol/L Normal CL 100 LAB L501.6100 21.0-3 mmol/L High 2.0 CO2 33.0 LAB L501.6200 5-15 Normal GAP 6 Performed By: #### L500.2500 #### [facility] [address] [facility] [place], [address] EMERGENCY DEPARTMENT Observed: 10/01/2018 Status: F Source: HODGES SUMMARY 4:54 PM [facility] REPOSITORY [facility] Medical Records Department [address] [place] [address] Emergency Department Summary 10/01/18 1110 MR#: [id number] Acct: [id number] Name: ROSA BELTRAN Rep #: [id number] : 1935 82 From: Abdiel Aldrich MD PCP: Mani Newman MD Status: ADM IN - ER Visit Summary Date of Service: 10/01/18 Chief Complaint: Shortness of breath and hunched over History of Present Illness: The patient is a 82 F who presents from her nursing facility. History is limited. I am told that the patient is normally alert and oriented, but today she is not providing any information. The patient was found sitting on the toilet, hunched over. She appeared somewhat blue and her oxygen was low. She has been having fevers, nausea, abdominal pain, shortness of breath. She has a history of a recent skin graft to her right lower extremity. She has bilateral lower extremity edema which has been better than normal for her. She has a history of CO and coronary disease. History of CHF and COPD. History of atrial fibrillation and takes aspirin and apixaban. She has a DNR [employer] arrest form which is not signed by physician. Physical Examination: Temperature 100.3. 90% on room air. 100% on nasal cannula. Respiratory rate 27. Blood pressure 130/78. Patient is somnolent. Arouses to voice but only answers in very brief sentences. Head and neck atraumatic. Heart irregular and slightly tachycardic. Lungs clear throughout all leone. Abdomen soft and nontender. Lower extremity show diffuse and symmetric edema. Right foot and ankle dressing noted. Patient moves all extremities. Cranial nerves grossly intact but exam is limited due to lack of cooperation. Test Results: EKG shows atrial fibrillation at a rate of 103. No sign of acute ischemia or infarction pattern. Laboratory studies, chest x-ray, CT abdomen pending at the time of this dictation. Emergency Department Course and Treatment: Patient was placed on a monitor. She was placed on oxygen by nasal cannula. Treated with fluids and Zofran. Patient will likely need admission. I am concerned for sepsis, respiratory and cardiac pathology, GI and pathology primarily. Will monitor. White count 16.6 and hemoglobin 10.7. Metabolic panel unremarkable. Coags unremarkable. Urinalysis shows signs of infection. Cultures are pending. Troponin normal. BNP 445 and lactate 1.4. Chest x-ray showed chronic changes and cardiomegaly. CT abdomen was limited but showed nothing acute. Patient was treated with Rocephin and Lasix. She is doing well on nasal cannula. We are having trouble getting good pulse ox readings, but when we get a good reading she is 95-100% on 4 L. Patient has some continued complaints of nausea but no vomiting. Otherwise she is stable. Hospitalist was contacted for admission to PCU. Treatment Plan: As above Disposition: PCU Impression: 1. UTI 2. Sepsis 3. CHF This note was generated with [employer] dictation software. It may contain incorrect words, spelling, and punctuation that were not noted in review of the chart prior to signing ED Disposition - Plan for ED Patient: Chief Complaint: Shortness of Breath Referrals: Mani Newman MD [Primary Care Provider] - What to do if you have Problems For any increased pain, shortness of breath, bleeding, nausea or vomiting, chest pain, or any unexpected problems, contact your Primary Care Provider. Call [facility] ([phone]) or report to the closest Emergency Room. Call 911 if necessary. 10/01/18 4676 <Electronically signed by Abdiel Aldrich MD> Date Abdiel Aldrich MD Cosigner Signature (If Indicated): Date CC: Mani Newman MD HISTORY AND PHYSICAL Observed: 10/01/2018 Status: F Source: HODGES EXAM 1:20 PM [facility] REPOSITORY [facility] Medical Records Department [address] [address] History and Physical 10/01/18 1305 MR#: [id number] Acct: [id number] Name: ROSA BELTRAN Rep #: [id number] : 1935 82 From: Olivia Lees MD PCP: Mani Newman MD Status: ADM IN Y Location: [place] [address] Problem List (1) Coronary artery disease Status: Chronic (2) Atrial fibrillation Status: Chronic (3) COPD (chronic obstructive pulmonary disease) Status: Chronic (4) GERD (gastroesophageal reflux disease) Status: Chronic (5) Congestive heart failure Status: Chronic (6) History of myocardial infarction Status: Chronic (7) Hypertension Status: Chronic Qualifiers: (8) Hypothyroidism Status: Chronic (9) Hypercholesterolemia Status: Chronic (10) Osteoarthritis (arthritis due to wear and tear of joints) Status: Chronic (11) Rheumatoid arthritis Status: Chronic History of Present Illness Date of Admission: 10/01/18 Chief Complaint: Shortness of breath, lethargy. The patient is a 82 year old F with multiple medical comorbidities as mentioned above transferred from the intermediate because of shortness of breath, lethargy and she was found hunched over. At this time, patient is alert, intermittently lethargic and she is disoriented. She is unable to provide good history. She complains of worsening shortness of breath. She complains of pains all over. She has a history of chronic atrial fibrillation she has been on Eliquis for anticoagulation but she is not on any medication for rate control. She had a history of chronic diastolic CHF with chronic bilateral leg edema and she has been on Lasix. She had a history of chronic respiratory failure and she has been on oxygen at the intermediate. She states that she is usually on oxygen at 2-3 L. She has a history of hypothyroidism and she has been on levothyroxine and her most recent TSH was 3.06 on July, and she has been stable. In the emergency room, she had a spike of low- grade fever, was tachypneic, short of breath and pulse ox was 98% on 4 L. Her routine blood work was remarkable for leukocytosis, chronic anemia, otherwise normal. Lactic acid was normal. EKG revealed atrial fibrillation, rate has been around 100, no acute ischemic changes. Troponin is negative. LFT and lipase were unremarkable. BNP was elevated. CT scan abdomen and pelvis without contrast revealed cardiomegaly and small bilateral pleural effusion and size consistent with pulmonary vascular congestion suggestive of CHF. No acute intra-abdominal or pelvic pathology identified. Chest x-ray revealed cardiomegaly and bilateral pulmonary vascular congestion. Urine analysis revealed cloudy urine, positive for nitrite and leukocyte esterase, there was 50-100 WBCs and 3+ bacteria. She is being admitted for acute cystitis with sepsis as well as acute on chronic diastolic CHF and acute on chronic hypoxic respiratory failure. 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) Vitamin D deficiency (Chronic) Neuropathy (Chronic) Malnutrition (Chronic) Leg ulcer, left (Chronic) Lymphedema of lower extremity (Chronic) Congestive heart failure (Chronic) History of myocardial infarction (Chronic) Incontinence of urine (Chronic) Hypertension (Chronic) Morbid obesity (Chronic) Hypothyroidism (Chronic) Hypercholesterolemia (Chronic) Osteoarthritis (arthritis due to wear and tear of joints) (Chronic) Rheumatoid arthritis (Chronic) Allergies No Known Allergies Allergy (Verified 06/05/18 13:06) Home Medications: Ambulatory Orders Medication Instructions Recorded Acetaminophen [Pain Relief Extra 1,000 mg PO Q8H PRN PRN 04/25/17 Surgical History: herniorrhaphy, hysterectomy, total knee arthroplasty - Bilateral., tonsillectomy, - - Cardiac stents x 2, gastric bypass surgery, right ankle ORIF. Psychiatric History: No pertinent psych hx GLYCERIN SUPERVISOR History: No pertinent GLYCERIN SUPERVISOR history Lives: Assisted Smoking Status: Unknown if ever smoked Alcohol: None Drugs: None - *Family History Maternal History Items: - - Patient's father in his 70s with a history of arthritis. The patient's mother at the age of 90 with a history of arthritis. Paternal History Items: Heart Disease Review of Systems Constitutional: Reports: Weakness, Fatigue. Denies: Anorexia, Fever Eyes: Denies: Blurred vision, Double vision, Drainage, Redness HEENT: Denies: Difficulty Hearing, Ear Pain, Eye Pain, Nasal Congestion, Sore Throat Cardiovascular: Denies: Chest Pain, Chest Pressure, Heaviness, Palpitations, Syncope Respiratory: Reports: Shortness of Breath. Denies: Cough, Hemoptysis, Sputum production, Wheezing Gastrointestinal: Denies: Abdominal Pain, Constipation, Diarrhea, Nausea, Vomiting Genitourinary: Denies: Dysuria, Frequency, Hematuria Musculoskeletal: Reports: Leg Pain. Denies: Arm Pain, Back Pain, Foot Pain Skin: Denies: Dryness, Rash Neurological: Reports: Confusion. Denies: Balance problems, Double vision, Change in Speech, Headaches, Incoordination, Numbness Psychiatric: Denies: Anxiety, Depression Endocrine: Denies: Change in Body Habitus, Polydipsia VTE Information - Inpt Only VTE Present on Admission: No VTE Mechan Device Prophylaxis: None VTE Pharm Prophylaxis ordered?: No - Physical Exam General: Alert, Cooperative, Confused, Disoriented, Lethargic, - - Moderately short of breath. HEENT: Atraumatic, PERRLA, EOMI, Normocephalic Oral: Moist Mucosa, No Gingival or Mucosal Lesions/ Ulcerations Neck: Supple, No JVD, Negative Carotid Bruits, Trachea Midline, Thyroid Normal Size and Texture Lungs: No wheeze, Diminished, Rales, Short of Breath, Tachypneic, - - Decreased breath sounds bilateral, bilateral coarse crackles. Cardiovascular: Normal S1, Normal S2, No murmurs, PMI Normal, Irregular Rate Abdomen: Bowel Sounds Present, Soft, Non Tender, Non-Distended, No Hepato-splenomegaly, Obese Extremities: No clubbing, No cyanosis, Edema - Nonpitting edema. Lymphedema. Skin: No rashes, No breakdown Lymphatic: No Cervical, Supraclavicular, or Inguinal Adenopathy Neurological: Cranial nerves II-XII grossly intact, Motor Exam 5/5 strength throughout Psych/Mental Status: Flat Affect Vital Signs Temp Pulse Resp BP Pulse Ox 99.0 F 95 24 H 118/78 98 10/01/18 12:12 10/01/18 12:12 10/01/18 12:12 10/01/18 12:12 10/01/18 12:12 Oxygen Flow Rate (L/min) 4 Oxygen Delivery Method Nasal Cannula Weight: 235 lb 14.314 oz Body Mass Index (BMI) 39.2 Microbiology Past 72 Hours 10/01/18 11:41 Influenza Types A,B Direct FA (THEO) - Final Mucosa - Nose Laboratory Tests Past 24 Hrs WBC RBC Hgb Hct MCV MCH MCHC RDW Clinical Impression(s) from Imaging Studies Abdomen/Pelvis CT 10/01/18 10:39 IMPRESSION: Cardiomegaly with small bilateral pleural effusions and mild pulmonary vascular congestion. Anasarca. No acute abdominal or pelvic pathology demonstrated on this Limited, noncontrast CT. Electronically Signed: Javier Serrano at 12:00 EST Tel , Service support , Chest X-Ray 10/01/18 10:39 IMPRESSION: Chronic interstitial changes with superimposed interstitial edema. Follow-up recommended to assure resolution Stable cardiomegaly Degenerative bony changes Electronically Signed: Fer Ge MD at 11:30 EST , Service support , Assessment/Plan This is an 82 years old female patient transferred from intermediate because of shortness of breath, lethargy and she was found to have acute cystitis with sepsis as well as acute on chronic diastolic CHF complicated with acute on chronic hypoxic respiratory failure. #1 acute cystitis/sepsis: Urine is reviewed. She does have leukocytosis, low-grade fever and she is dyspneic and tachypneic as well as hypoxic. Lactic acid was normal. Blood pressure and heart rate are stable. Plan: Admit to PCU, cardiac monitoring, blood culture, urine culture, IV Rocephin, and put up a chart, repeat CBC and BMP tomorrow morning, PT OT evaluation and treatment. #2 acute on chronic diastolic CHF: This is based on worsening shortness of breath, increasing oxygen requirement, chest x-ray findings and increased BNP. EKG reviewed as above. Troponin is negative. Plan: Fluid restriction to start 1500 cc daily, continue oxygen, 2D echocardiogram, IV Lasix twice daily,. Although she does have a history of chronic CHF, she is not on beta-blockers or ANKIT inhibitors. #3 acute on chronic hypoxic respiratory failure: According to the patient, she is on oxygen at the intermediate at 2-3 L. At this time, she is up to 4 L. She looks dyspneic and tachypneic. It is secondary to acute on chronic CHF. Plan: IV diuresis, bronchodilators, incentive spirometer, chest physical therapy. #4 chronic atrial fibrillation: Rate has been around 90, blood pressure stable. Continue Eliquis for anticoagulation, she is not on any medication for rate control. Plan for 2D echocardiogram as above. #5 hypertension: Blood pressure stable, she was given IV Lasix for diuresis. #6 hypothyroidism: Continue levothyroxine, TSH was normal on July,. #7 COPD: DuoNeb every 6 hours, albuterol as needed, chest physical therapy, incentive spirometer. #8 GERD: Continue Protonix. #10 DVT prophylaxis: Continue Eliquis. This note was generated with [employer] dictation software. It may contain incorrect words, spelling, and punctuation that were not noted in checking the note before signing. Code Visit Inpatient E AND M: 82310 Init Hosp L3 10/01/18 1320 <Electronically signed by Olivia Lees MD> Date Olivia Lees MD Cosigner Signature: Date (if applicable) CC: Olivia Lees; Mani Newman MD Signed Observed: 10/01/2018 Status: F Source: HODGES CULTURE, URINE 11:50 AM [facility] REPOSITORY Order Date: 10/01/18 Urine Culture ORGANISM 1: Escherichia coli [place] Count >100,000 Escherichia coli: REACTION Amoxacillin/Clavulanic Acid $ <=2 S Ampicillin $ 8 S Ampicillin/Sulbactam $ 4 S Cefazolin $ <=4 S Cefepime $ <=1 S Ceftriaxone $ <=1 S Ciprofloxacin $ <=0.25 S ESBL - Ertapenim $$$ <=0.5 S Gentamicin $ <=1 S Imipenem *NF <=0.25 S Levofloxacin $ <=0.12 S Nitrofurantoin $ <=16 S Piperacillin/Tazobactam $$ <=4 S Tobramycin $ <=1 S Trimethoprim/Sulfametho $ <=20 S (NF) indicates non-formulary drug at [facility]. Approval by Infectious Disease Specialist required before non-formulary drugs may be ordered and/or dispensed. Performed By: #### M100.0650 #### [facility] [address] [facility]. [place], [place], [id number] Observed: 10/01/2018 Status: F Source: HODGES CULTURE, BLOOD (WB) 11:45 AM [facility] REPOSITORY BC No growth in 5 days. Performed By: #### M200.1000 #### [facility] [address] [place], [place], [address] Observed: 10/01/2018 Status: F Source: HODGES INFLUENZA A+B (RAPID 11:41 AM [facility]) REPOSITORY FLU A/B Rapid Negative test results should be confirmed by culture. Order Rapid Viral Culture for Influenzae A+B ([id number]) if clinically indicated. Influenza Ag, Direct Presumptive NEGATIVE for Influenza A/B Antigen (See Note) Performed By: #### M101.0101 #### [facility] [address] [place], [address] URINALYSIS, COMPLETE Collected: 10/01/2018 Status: F Source: HODGES 11:00 AM [facility] REPOSITORY Order Comment: How was Urine Obtained? CLEAN CATCH TYPE CODE TESTS RESULT OUT OF RANGE REFERENCE UNITS LAB L400.3000 Yellow COLOR Normal Yellow LAB L400.3050 Clear Normal CLARITY Sl. Cloudy LAB L400.3200 Normal mg/dl Normal GLUCOSE, UR Normal LAB L400.3300 Negative mg/dL Normal BILIRUBIN URINE Negative LAB L400.3400 Negative mg/dl Normal KETONE UR Negative LAB L400.3465 1.002-1.030 Normal SP.GR. DIPSTX 1.010 LAB L400.3550 5.0 - 8.0 pH UR Normal 7.0 LAB L400.3600 Negative mg/dl High PROT 30 DIPSTX LAB L400.3700 Normal mg/dl Normal UROBILI Normal LAB L400.3750 Negative High NITRITE UR Positive LAB L400.3780 Negative /ul High 10 OCCULT BLOOD-UR LAB L400.3800 Negative /ul High LEUK ESTERASE 100 LAB L400.4050 0-5 /hpf WBC Normal 50-100 SEEN LAB L400.4100 0-5 /hpf 0 Normal RBC-UA SEEN LAB L400.4150 5-10 /hpf SQUAM 0 Normal EPI SEEN LAB L400.4300 None Seen /hpf 3+ Normal BACTERIA LAB L400.4350 <or=2+ /hpf 0 Normal MUCUS, URINE SEEN Performed By: #### L400.0001 #### [facility] [address] [place], [address] CHEST 1 VIEW Observed: 10/01/2018 Status: F Source: HODGES (PORTABLE) 10:43 AM [facility] REPOSITORY [facility] Imaging Services [address] [place], [place] [address] [address] Chest 1 View (Portable) MR#: [id number] Acct: [id number] Name: Rosa Beltran Rep #: [id number] : 1935 F 82 From: Josh Ge MD PCP: Mani Newman MD Status: PRE ER Study: Chest 1 View (Portable) Date of Exam: 10/01/18 Exam# [id number] Ordering Dr: Abdiel Aldrich MD STUDY: X-RAY CHEST REASON FOR EXAM: Female, 82 years old. Cough TECHNIQUE: Single AP portable view of the chest. COMPARISON: 06/08/2018 FINDINGS: EKG leads overlie the chest Lungs are expanded. Chronic interstitial changes again noted in both lung leone with superimposed pulmonary vascular congestion. No organized infiltrate or effusion. Stable cardiomegaly. Normal mediastinum and arnulfo. Normal visualized pulmonary arteries. There is atherosclerotic calcification of the aortic arch with tortuosity. There are diffuse degenerative changes of the visualized thoracic spine. There is degenerative osteoarthritis of the bilateral shoulders. There is no demonstrated abnormality of the visualized soft tissue structures of the upper abdomen. RAD/Chest 1 View (Portable) IMPRESSION: Chronic interstitial changes with superimposed interstitial edema. Follow-up recommended to assure resolution Stable cardiomegaly Degenerative bony changes Electronically Signed: Fer Ge MD at 11:30 EST , Service support , CC: Abdiel Aldrich MD; Mani Newman MD Stereotype Finisher: Signed ABDOMEN/PELVIS WITHOUT Observed: 10/01/2018 Status: F Source: VALE CONT 10:43 AM [facility] REPOSITORY [facility] Imaging Services [address] [place] [address] Abdomen/Pelvis without Cont MR#: [id number] Acct: [id number] Name: ROSA BELTRAN Rep #: [id number] : 1935 F 82 From: Javier Serrano MD PCP: Mani Newman MD Status: REG ER Study: Abdomen/Pelvis without Cont Date of Exam: 10/01/18 Exam# [id number] Ordering Dr: Abdiel Aldrich MD STUDY: CT ABDOMEN AND PELVIS WITHOUT CONTRAST REASON FOR EXAM: Female, 82 years old. Back pain RADIATION DOSAGE (If Supplied By Facility): CTDIvol = ( 24 ) mGy, DLP = ( 1090 ) mGycm TECHNIQUE: Transaxial images were obtained from the dome of the diaphragm to the symphysis pubis without oral contrast, and without intravenous contrast. Sagittal and coronal images were reconstructed. Individualized dose optimization techniques were used for this CT. COMPARISON: None. FINDINGS: Evaluation of the abdominal viscera is limited in the absence of intravenous contrast. Additionally, patient motion and streak artifact due to the patient's arms being at her side further limiting evaluation. There are small bilateral pleural effusions with overlying atelectasis. There are mild congestive changes noted. The heart is mildly enlarged. There are no calcified gallstones present. There are calcified granulomas in the liver. The liver otherwise demonstrates an unremarkable unenhanced appearance. The spleen is normal in size. There are calcified granulomata noted in the spleen. The pancreas demonstrates an unremarkable unenhanced appearance. The adrenal glands are within normal limits. There are no renal or ureteral stones. There is no hydronephrosis. There is a Vitale catheter in the urinary bladder. Normal visualized stomach. There is no bowel obstruction or inflammation. The appendix is not visualized, but there are no findings to suggest acute appendicitis. There is a small fat-containing ventral hernia. There is no bowel containing hernia. The aorta is normal in caliber. There is no abdominal or pelvic free air, free fluid, fluid collection or lymphadenopathy. There are no destructive osseous lesions. There are degenerative changes noted in the spine. There is diffuse anasarca noted in the soft tissues. CT/Abdomen/Pelvis without Cont IMPRESSION: Cardiomegaly with small bilateral pleural effusions and mild pulmonary vascular congestion. Anasarca. No acute abdominal or pelvic pathology demonstrated on this Limited, noncontrast CT. Electronically Signed: Javier Serrano, at 12:00 EST Tel , Service support , CC: Abdiel Aldrich MD; Mani Newman MD Stereotype Finisher: Signed CBC W/DIFF, AUTOMATED Collected: 10/01/2018 Status: F Source: VALE 10:40 AM [facility] REPOSITORY TYPE CODE TESTS RESULT OUT OF RANGE REFERENCE UNITS LAB L100.1000 4.4-11.0 K/mm3 High WBC 16.6 LAB L100.1200 4.2-5.4 M/mm3 Low RBC 3.70 LAB L100.1300 12.0-15.0 g/dl Low HGB 10.7 LAB L100.1400 37-47 % Low HCT 35.8 LAB L100.1500 81-99 fL Normal MCV 96.8 LAB L100.1600 27.0-32.0 pg Normal MCH 28.9 LAB L100.1700 32-36 g/gl Low MCHC 29.9 LAB L100.1810 11.6-14.6 % High RDW CV 16.8 LAB L100.1820 35.1-43.9 fl High RDW SD 58.0 LAB L100.1900 150-450 K/mm3 Normal PLT 234 LAB L100.2000 6.2-12.0 fl Normal MPV 9.8 LAB L100.2100 47-70 % High NEUT% 89.8 LAB L100.2200 19-41 % Low LY% 6.8 LAB L100.2300 0-10 % Normal MONO% 2.9 LAB L100.2400 0-5 % Normal EO% 0.2 LAB L100.2500 0-1 % Normal BASO% 0.1 LAB L100.2550 0.0-0.9 % Normal IM GRAN % 0.200 Result Comment: IG% - Immature Granulocytes (promyelocytes, myelocytes and metamyelocytes) > 1% indicates that a LEFT SHIFT is Present. LAB L100.2620 2.0-7.7 X10 3/uL High Absolute Neut 14.9 LAB L100.2720 0.83-4.51 X10 3/ul Normal Absolute Lymph 1.12 Performed By: #### L100.0100 #### [facility] [address], [address] PROTHROMBIN TIME W/INR Collected: 10/01/2018 Status: F Source: VALE 10:40 AM [facility] REPOSITORY TYPE CODE TESTS RESULT OUT OF RANGE REFERENCE UNITS LAB L300.4150 11.7-14.9 SECONDS High PROTIME 16.8 LAB L300.4200 Normal INR 1.4 Performed By: #### L300.3900, L300.4310 #### [facility] [address], [address] PARTIAL THROMBOPLAST Collected: 10/01/2018 Status: F Source: VALE TIME 10:40 AM [facility] REPOSITORY TYPE CODE TESTS RESULT OUT OF REFERENCE UNITS RANGE LAB L300.4310 24.1-36.2 Seconds High PTT 40.0 Performed By: #### L300.3900, L300.4310 #### [facility] [address] [place], [place], [address] COMPREHENSIVE METABOLIC Collected: 10/01/2018 Status: F Source: VALE PROFIL 10:40 AM [facility] REPOSITORY TYPE CODE TESTS RESULT OUT OF RANGE REFERENCE UNITS LAB L501.0100 74-106 mg/dL Normal GLU 94 Result Comment: Please note revised GLUCOSE reference range effective 2017. LAB L501.1000 7-18 mg/dL Normal BUN 13 LAB L501.1100 0.55-1.02 mg/dL Normal CREAT,SERUM 0.88 Result Comment: The validity of the calculated GFR AND GFRAA in patients over 70 years has not been determined. Clinical correlation is essential. LAB L501.1110 >60 mL/min Normal EST GFR 65 Result Comment: Non- GFR Calc LAB L501.1115 >60 mL/min Normal EST GFR - AA 79 Result Comment: GFR Calc LAB L501.1255 ml/min Normal Estimated CRCL 45.12 LAB L501.1300 10-20 RATIO Normal BUN/CRE 14.8 LAB L501.1500 6.4-8. g/dL High 2 T PROT 8.3 LAB L501.1800 3.2-5. g/dL Low 0 ALB 2.7 LAB L501.1950 2.2-4. g/dL High 2 GLOB 5.6 LAB L501.2000 0.9-2. RATIO Low 4 A/G 0.5 LAB L501.2200 8.5-10 mg/dL Low .1 CA 8.4 LAB L501.4100 15-37 U/L Normal AST 23 LAB L501.4305 45-117 U/L Normal ALK P 88 LAB L501.4405 13-56 U/L Low ALT 9 LAB L501.4600 0.20-1 mg/dL Normal .00 T BILI 0.70 LAB L501.5300 136-14 mmol/L Normal 5 NA 136 LAB L501.5600 3.5-5. mmol/L Normal 1 K 4.6 LAB L501.5900 98-107 mmol/L Normal CL 100 LAB L501.6100 21.0-3 mmol/L Normal 2.0 CO2 31.0 LAB L501.6200 5-15 Normal GAP 5 Performed By: #### L500.4050, L501.2450, L501.4010 #### [facility] [address] [facility] [place], [place], [address] LIPASE Collected: 10/01/2018 Status: F Source: HODGES 10:40 AM [facility] REPOSITORY TYPE CODE TESTS RESULT OUT OF REFERENCE UNITS RANGE LAB L501.2450 73-393 U/L Low LIPASE 50 Performed By: #### L500.4050, L501.2450, L501.4010 #### [facility] [address] [place], [address] TROPONIN-I Collected: 10/01/2018 Status: F Source: HODGES 10:40 [facility] REPOSITORY TYPE CODE TESTS RESULT OUT OF RANGE REFERENCE UNITS LAB L501.4010 <0.045 ng/mL Normal < 0.015 TROPONIN-I Result Comment: TROPONIN-I EXPECTED VALUES <0.045 Negative 0.045 - 0.590 Consistent with Cardiac Damage > OR = 0.600 Critical Value Not every elevated troponin is indicative of CO. These values should be used with clinical judgement in examining the patient's clinical picture for diagnosis. To establish a diagnosis of CO versus myocardial injury, there must be a demonstrated rise and/or fall in the troponin values, in addition to ischemic symptoms, EKG changes, new regional wall motion abnormality, and/or angiographical evidence. PLEASE NOTE: REFERENCE RANGES EDITED 18 Performed By: #### L500.4050, L501.2450, L501.4010 #### [facility] [address] [place], [address] LACTIC ACID Collected: 10/01/2018 Status: F Source: VALE 10:40 AM [facility] REPOSITORY Order Comment: Yes/No query for Sepsis Lactate Rule Y TYPE CODE TESTS RESULT OUT OF RANGE REFERENCE UNITS LAB L503.6005 0.4-2.0 mmol/L Normal LACTIC ACID 1.4 Performed By: #### L503.6005 #### [facility] [address], [address] BNP,B-TYPE NATRIURETIC Collected: 10/01/2018 Status: F Source: VALE PEPTIDE 10:40 AM [facility] REPOSITORY TYPE CODE TESTS RESULT OUT OF RANGE REFERENCE UNITS LAB L503.6620 0-100 pg/mL High B-TYPE 445.0 HERMELINDA PEP Performed By: #### L503.6620 #### [facility] [address] [place], [address] Observed: 10/01/2018 Status: F Source: VALE CULTURE, BLOOD (WB) 10:40 AM [facility] REPOSITORY BC No growth in 5 days. Performed By: #### M200.1000 #### [facility] [address] [place], [address] PROGRESS Observed: 09/27/2018 Status: COMPLETED Source: VICTOR 8:57 AM [facility] REPOSITORY HNO ID: [id number] Author: Volodymyr Gilbert Cma Service: (none) Author Type: (none) Type: Progress Notes Filed: 09/27/2018 8:58 AM Note Text: Left message for to return call #[phone]. Patient still @ [facility]. CBC-COMPLETE BLOOD CNT Collected: 09/26/2018 Status: F Source: VALE NO DIFF 5:25 AM [facility] REPOSITORY Order Comment: 113 TYPE CODE TESTS RESULT OUT OF RANGE REFERENCE UNITS LAB L100.1000 4.4-11.0 K/mm3 Normal WBC 6.2 LAB L100.1200 4.2-5.4 M/mm3 Low RBC 3.30 LAB L100.1300 12.0-15.0 g/dl Low HGB 9.4 LAB L100.1400 37-47 % Low HCT 32.4 LAB L100.1500 81-99 fL Normal MCV 98.2 LAB L100.1600 27.0-32.0 pg Normal MCH 28.5 LAB L100.1700 32-36 g/gl Low MCHC 29.0 LAB L100.1810 11.6-14.6 % High RDW CV 17.2 LAB L100.1820 35.1-43.9 fl High RDW SD 58.2 LAB L100.1900 150-450 K/mm3 Normal PLT 263 LAB L100.2000 6.2-12.0 fl Normal MPV 9.9 Performed By: #### L100.0500 #### [facility] [address] [place], [address] BASIC METABOLIC Collected: 09/26/2018 Status: F Source: HODGES PROFILE (BMP) 5:25 AM [facility] REPOSITORY Order Comment: 113 TYPE CODE TESTS RESULT OUT OF RANGE REFERENCE UNITS LAB L501.0100 74-106 mg/dL Normal GLU 84 Result Comment: Please note revised GLUCOSE reference range effective 2017. LAB L501.1000 7-18 mg/dL Normal BUN 13 LAB L501.1100 0.55-1.02 mg/dL Normal CREAT,SERUM 0.74 Result Comment: The validity of the calculated GFR AND GFRAA in patients over 70 years has not been determined. Clinical correlation is essential. LAB L501.1110 >60 mL/min Normal EST GFR 80 Result Comment: Non- GFR Calc LAB L501.1115 >60 mL/min Normal EST GFR - AA 96 Result Comment: GFR Calc LAB L501.1300 10-20 RATIO Normal BUN/CRE 17.5 LAB L501.2200 8.5-10.1 mg/dL Low CA 8.0 LAB L501.5300 136-145 mmol/L NA Normal 137 LAB L501.5600 3.5-5.1 mmol/L K Normal 4.3 LAB L501.5900 98-107 mmol/L CL Normal 100 LAB L501.6100 21.0-32.0 mmol/L High CO2 33.0 LAB L501.6200 5-15 Low GAP 4 Performed By: #### L500.2500 #### [facility] [address] [place], [address] PROGRESS Observed: 09/20/2018 Status: COMPLETED Source: VICTOR 8:58 AM [facility] REPOSITORY HNO ID: [id number] Author: Volodymyr Gilbert [facility] Service: (none) Author Type: (none) Type: Progress Notes Filed: 09/20/2018 8:59 AM Note Text: Left message for SW to return call #[phone] PROGRESS Observed: 09/13/2018 Status: COMPLETED Source: VICTOR 9:53 AM [facility] REPOSITORY HNO ID: [id number] Author: Volodymyr Gilbert [employer] Teacher Service: (none) Author Type: (none) Type: Progress Notes Filed: 09/13/2018 9:53 AM Note Text: Left message for to return my call for an update. CBC-COMPLETE BLOOD CNT Collected: 09/12/2018 Status: F Source: HODGES NO DIFF 6:10 AM [facility] REPOSITORY Order Comment: 113 TYPE CODE TESTS RESULT OUT OF RANGE REFERENCE UNITS LAB L100.1000 4.4-11.0 K/mm3 High WBC 13.1 LAB L100.1200 4.2-5.4 M/mm3 Low RBC 3.09 LAB L100.1300 12.0-15.0 g/dl Low HGB 9.0 LAB L100.1400 37-47 % Low HCT 29.9 LAB L100.1500 81-99 fL Normal MCV 96.8 LAB L100.1600 27.0-32.0 pg Normal MCH 29.1 LAB L100.1700 32-36 g/gl Low MCHC 30.1 LAB L100.1810 11.6-14.6 % High RDW CV 17.7 LAB L100.1820 35.1-43.9 fl High RDW SD 59.6 LAB L100.1900 150-450 K/mm3 Normal PLT 191 LAB L100.2000 6.2-12.0 fl Normal MPV 10.3 Performed By: #### L100.0500 #### [facility] [address] [place], [address] BASIC METABOLIC Collected: 09/12/2018 Status: F Source: VALE PROFILE ([facility]) 6:10 AM [facility] REPOSITORY Order Comment: 113 TYPE CODE TESTS RESULT OUT OF RANGE REFERENCE UNITS LAB L501.0100 74-106 mg/dL Normal GLU 83 Result Comment: Please note revised GLUCOSE reference range effective 2017. LAB L501.1000 7-18 mg/dL High BUN 23 LAB L501.1100 0.55-1.02 mg/dL Normal CREAT,SERUM 0.95 Result Comment: The validity of the calculated GFR AND GFRAA in patients over 70 years has not been determined. Clinical correlation is essential. LAB L501.1110 >60 mL/min Normal EST GFR 60 Result Comment: Non- GFR Calc LAB L501.1115 >60 mL/min Normal EST GFR - AA 73 Result Comment: GFR Calc LAB L501.1300 10-20 RATIO High BUN/CRE 24.2 LAB L501.2200 8.5-10.1 mg/dL Low CA 8.0 LAB L501.5300 136-145 mmol/L NA Normal 136 LAB L501.5600 3.5-5.1 mmol/L K Normal 3.7 LAB L501.5900 98-107 mmol/L Low CL 97 LAB L501.6100 21.0-32.0 mmol/L High CO2 33.0 LAB L501.6200 5-15 Normal GAP 6 Performed By: #### L500.2500 #### [facility] [address], [address] PROGRESS Observed: 09/07/2018 Status: COMPLETED Source: VICTOR 10:00 AM [facility] REPOSITORY HNO ID: [id number] Author: Volodymyr Gilbert Cma Service: (none) Author Type: (none) Type: Progress Notes Filed: 09/07/2018 10:02 AM Note Text: No discharge plans in place at this time. PROGRESS Observed: 08/30/2018 Status: COMPLETED Source: VICTOR 9:23 AM [facility] REPOSITORY HNO ID: [id number] Author: Volodymyr Gilbert Cma Service: (none) Author Type: (none) Type: Progress Notes Filed: 08/30/2018 9:25 AM Note Text: Left message for to return call #[phone] CBC-COMPLETE BLOOD CNT Collected: 08/29/2018 Status: F Source: VALE NO DIFF 5:40 AM [facility] REPOSITORY Order Comment: ROOM 113 TYPE CODE TESTS RESULT OUT OF RANGE REFERENCE UNITS LAB L100.1000 4.4-11.0 K/mm3 Normal WBC 6.8 LAB L100.1200 4.2-5.4 M/mm3 Low RBC 3.47 LAB L100.1300 12.0-15.0 g/dl Low HGB 9.9 LAB L100.1400 37-47 % Low HCT 34.1 LAB L100.1500 81-99 fL Normal MCV 98.3 LAB L100.1600 27.0-32.0 pg Normal MCH 28.5 LAB L100.1700 32-36 g/gl Low MCHC 29.0 LAB L100.1810 11.6-14.6 % High RDW CV 19.5 LAB L100.1820 35.1-43.9 fl High RDW SD 67.1 LAB L100.1900 150-450 K/mm3 Normal PLT 209 LAB L100.2000 6.2-12.0 fl Normal MPV 9.9 Performed By: #### L100.0500, L100.4500 #### [facility] [address] [place], [place], [id number] DIFFERENTIAL COMMENT Collected: 08/29/2018 Status: F Source: VALE 5:40 AM [facility] REPOSITORY Order Comment: ROOM 113 TYPE CODE TESTS RESULT OUT OF RANGE REFERENCE UNITS LAB L100.4500 Normal SMEAR COMMENT SCANNED Result Comment: 1+ HYPOCHROMIA Performed By: #### L100.0500, L100.4500 #### [facility] [address] [place], [place], [id number] COMPREHENSIVE METABOLIC Collected: 08/29/2018 Status: F Source: VALE PROFIL 5:40 AM [facility] REPOSITORY Order Comment: ROOM 113 TYPE CODE TESTS RESULT OUT OF RANGE REFERENCE UNITS LAB L501.0100 74-106 mg/dL Low GLU 72 Result Comment: Please note revised GLUCOSE reference range effective 2017. LAB L501.1000 7-18 mg/dL Normal BUN 12 LAB L501.1100 0.55-1.02 mg/dL Normal CREAT,SERUM 0.92 Result Comment: The validity of the calculated GFR AND GFRAA in patients over 70 years has not been determined. Clinical correlation is essential. LAB L501.1110 >60 mL/min Normal EST GFR 62 Result Comment: Non- GFR Calc LAB L501.1115 >60 mL/min Normal EST GFR - AA 75 Result Comment: GFR Calc LAB L501.1300 10-20 RATIO Normal BUN/CRE 13.0 LAB L501.1500 6.4-8.2 g/dL T Normal PROT 6.7 LAB L501.1800 3.2-5.0 g/dL Low ALB 2.0 LAB L501.1950 2.2-4.2 g/dL High GLOB 4.7 LAB L501.2000 0.9-2.4 RATIO Low A/G 0.4 LAB L501.2200 8.5-10.1 mg/dL Low CA 7.9 LAB L501.4100 15-37 U/L Normal AST 22 LAB L501.4305 45-117 U/L Normal ALK P 96 LAB L501.4405 13-56 U/L Low ALT 11 LAB L501.4600 0.20-1.00 mg/dL T Normal BILI 0.30 LAB L501.5300 136-145 mmol/L NA Normal 139 LAB L501.5600 3.5-5.1 mmol/L K Normal 4.1 LAB L501.5900 98-107 mmol/L CL Normal 101 LAB L501.6100 21.0-32.0 mmol/L High CO2 35.0 LAB L501.6200 5-15 Low GAP 3 Performed By: #### L500.4050 #### [facility] [address] [place], [address] PROGRESS Observed: 08/24/2018 Status: COMPLETED Source: VICTOR 9:14 AM [facility] REPOSITORY HNO ID: [id number] Author: Volodymyr Gilbert Cma Service: (none) Author Type: (none) Type: Progress Notes Filed: 08/24/2018 9:17 AM Note Text: No discharge plans in place at this time. PROGRESS Observed: 08/16/2018 Status: COMPLETED Source: VICTOR 9:29 AM [facility] REPOSITORY HNO ID: [id number] Author: Volodymyr Gilbert Cma Service: (none) Author Type: (none) Type: Progress Notes Filed: 08/16/2018 9:30 AM Note Text: I called and spoke with [facility] who states Rosa was transferred to their facility last week. Unable to reach SW, but they will give her the message and call with any discharge plans/updats. CBC-COMPLETE BLOOD CNT Collected: 08/15/2018 Status: F Source: VALE NO DIFF 5:05 AM [facility] REPOSITORY Order Comment: RM 113 TYPE CODE TESTS RESULT OUT OF RANGE REFERENCE UNITS LAB L100.1000 4.4-11.0 K/mm3 Normal WBC 7.3 LAB L100.1200 4.2-5.4 M/mm3 Low RBC 3.26 LAB L100.1300 12.0-15.0 g/dl Low HGB 9.1 LAB L100.1400 37-47 % Low HCT 31.6 LAB L100.1500 81-99 fL Normal MCV 96.9 LAB L100.1600 27.0-32.0 pg Normal MCH 27.9 LAB L100.1700 32-36 g/gl Low MCHC 28.8 LAB L100.1810 11.6-14.6 % High RDW CV 20.5 LAB L100.1820 35.1-43.9 fl High RDW SD 68.8 LAB L100.1900 150-450 K/mm3 Normal PLT 348 LAB L100.2000 6.2-12.0 fl Normal MPV 10.1 Performed By: #### L100.0500, L100.4500 #### [facility] [address] [place], [place], [id number] DIFFERENTIAL COMMENT Collected: 08/15/2018 Status: F Source: VALE 5:05 AM [facility] REPOSITORY Order Comment: RM 113 TYPE CODE TESTS RESULT OUT OF RANGE REFERENCE UNITS LAB L100.4500 Normal SMEAR COMMENT COMMENT Result Comment: SLIDE SCANNED - 1+ ANISO NOTED. Performed By: #### L100.0500, L100.4500 #### [facility] [address], [address] COMPREHENSIVE METABOLIC Collected: 08/15/2018 Status: F Source: VALE FORBES 5:05 AM [facility] REPOSITORY Order Comment: RM 113 TYPE CODE TESTS RESULT OUT OF RANGE REFERENCE UNITS LAB L501.0100 74-106 mg/dL Low GLU 68 Result Comment: Please note revised GLUCOSE reference range effective 2017. LAB L501.1000 7-18 mg/dL Normal BUN 15 LAB L501.1100 0.55-1.02 mg/dL Normal CREAT,SERUM 0.96 Result Comment: The validity of the calculated GFR AND GFRAA in patients over 70 years has not been determined. Clinical correlation is essential. LAB L501.1110 >60 mL/min Low EST GFR 59 Result Comment: Non- GFR Calc LAB L501.1115 >60 mL/min Normal EST GFR - AA 72 Result Comment: GFR Calc LAB L501.1300 10-20 RATIO Normal BUN/CRE 15.6 LAB L501.1500 6.4-8.2 g/dL Low T PROT 6.2 LAB L501.1800 3.2-5.0 g/dL Low ALB 1.7 LAB L501.1950 2.2-4.2 g/dL High GLOB 4.5 LAB L501.2000 0.9-2.4 RATIO Low A/G 0.4 LAB L501.2200 8.5-10.1 mg/dL Low CA 7.6 LAB L501.4100 15-37 U/L Normal AST 21 LAB L501.4305 45-117 U/L Normal ALK P 100 LAB L501.4405 13-56 U/L Low ALT 10 LAB L501.4600 0.20-1.00 mg/dL T Normal BILI 0.40 LAB L501.5300 136-145 mmol/L NA Normal 141 LAB L501.5600 3.5-5.1 mmol/L K Normal 3.8 LAB L501.5900 98-107 mmol/L CL Normal 101 LAB L501.6100 21.0-32.0 mmol/L High CO2 33.0 LAB L501.6200 5-15 Normal GAP 7 Performed By: #### L500.4050, L500.4100, L501.9520 #### [facility] [address] [place], [place], [id number] LIPID PROFILE Collected: 08/15/2018 Status: F Source: VALE 5:05 AM [facility] REPOSITORY Order Comment: RM 113 TYPE CODE TESTS RESULT OUT OF RANGE REFERENCE UNITS LAB L501.4900 200 mg/dL Normal CHOL 129 Result Comment: <200 mg/dL Desirable 200-240 mg/dL Borderline >240 mg/dL High Risk LAB L501.5000 mg/dL Normal TRIG 79 Result Comment: The drugs N-Acetylcysteine and Metamizole may falsely depress this assay. Serum Triglycerides Reference Interval Normal <150 mg/dL Borderline high 150 - 199 mg/dL High 200 - 499 mg/dL Very High > or = 500 mg/dL LAB L501.6400 mg/dL Low HDL 35 Result Comment: The drugs N-Acetylcysteine and Metamizole may falsely depress this assay. Reference Range HDL <40 mg/dL Low HDL Cholesterol HDL >or= 60 mg/dL High HDL Cholesterol LAB L501.6500 0-130 mg/dL Normal LDL 78 LAB L501.6600 5-40 mg/dL Normal VLDL 16 Performed By: #### L500.4050, L500.4100, L501.9520 #### [facility] [address] [place], [place], [id number] THYROID STIM HORMONE Collected: 08/15/2018 Status: F Source: VALE (TSH) 5:05 AM [facility] REPOSITORY Order Comment: RM 113 TYPE CODE TESTS RESULT OUT OF RANGE REFERENCE UNITS LAB L501.9520 0.358-3.74 uIU/mL Normal TSH 3.06 Performed By: #### L500.4050, L500.4100, L501.9520 #### [facility] [address] [place], [address] VITAMIN D,25 HYDROXY Collected: 08/15/2018 Status: F Source: VALE 5:05 AM [facility] REPOSITORY Order Comment: RM 113 TYPE CODE TESTS RESULT OUT OF RANGE REFERENCE UNITS LAB L506.1000 29.95-100.01 ng/mL Normal Vitamin D 43.2 25-OH Result Comment: Vitamin D 25(OH) Status Range Deficiency <20 ng/mL (50nmol/L) Insuffciency 20 - 30 ng/mL (50 - 75 nmol/L) Sufficiency 30 - 100 ng/mL (75 - 250 nmol/L) Toxicity >100 ng/mL (>250 nmol/L) Performed By: #### L506.1000 #### [facility] [address] [place], [address] PROGRESS Observed: 08/09/2018 Status: COMPLETED Source: VICTOR 12:09 PM [facility] REPOSITORY HNO ID: [id number] Author: Volodymyr Gilbert Cma Service: (none) Author Type: (none) Type: Progress Notes Filed: 08/09/2018 12:14 PM Note Text: I spoke with ZENA Velasquez at [facility] who states she's been in contact with Helena at [facility] in [place] and Rosa will potentially be transferring to [facility] today. She will be there for rehab/therapy and wound care and will hopefully will be able to be discharged home at some point. PRALB Collected: 08/09/2018 Status: F Source: [facility] 5:48 AM [facility] REPOSITORY TYPE CODE TESTS RESULT OUT OF REFERENCE UNITS RANGE LAB PRALB(LOIN 18.0-38.0 mg/dL C) Low Prealbumin 9.8 Performed By: #### PRALB #### [place] [address] CNPTOUTREACH Observed: 08/08/2018 Status: COMPLETED Source: VICTOR 12:00 AM [facility] REPOSITORY Patient Outreach ([facility]) ROSA BELTRAN ([id number]) 1935 F Date Time Provider Department 08/08/18 MANI NEWMAN [facility] During your visit today, we recorded the following information about you: Allergies As of Date: 08/08/2018 (No Known Allergies) Date Reviewed: 06/27/2018 Reviewed by: Belle Ignacio RN - Fully Assessed Visit Diagnosis:Medication management [Z79.899] Order(s):LIPID PANEL BASIC [SQLIPB] Order #: [id number] FUTURE Prescriptions as of 08/08/2018 Sig: MENTHOL 0.44 %-ZINC OXIDE 20.* Apply 1 application to affect* CEPHALEXIN 500 MG CAPSULE Take 1 capsule by mouth three* NYSTATIN 100,000 UNIT/GRAM TO* Apply 1 application to affect* DEXTRAN 70-HYPROMELLOSE EYE D* Use 1 Drop in both eyes as ne* FUROSEMIDE 40 MG TABLET Take 1 tablet by mouth once d* OMEPRAZOLE 20 MG CAPSULE,LUIS MIGUEL* Take 1 capsule by mouth once * WARFARIN 3 MG TABLET Take 1 tablet by mouth daily * Patient taking differently: Take 3 mg by mouth once daily* GABAPENTIN 300 MG CAPSULE Take 1 capsule by mouth twice* ASPIRIN 81 MG TABLET,DELAYED * Take 81 mg by mouth every jean* LEVOTHYROXINE 100 MCG TABLET Take 1 tablet by mouth once d* Problem List As Of Date 08/08/2018 Noted Resolved Gastroesophageal reflux disease without esophag*INVALID FOR* Chronic atrial fibrillation (HCC) [I48.2] INVALID FOR* Priority: B More... Pure hypercholesterolemia [E78.00] Hypertension [I10] Priority: D Acquired hypothyroidism [E03.9] Priority: F CAD (coronary artery disease) [I25.10] More... 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 More... More... Respiratory failure with hypoxia (HCC) [J96.91] INVALID FOR*05/25/2018 Priority: Severe Heart failure with preserved ejection fraction *INVALID FOR* Priority: B More... Requires continuous at home supplemental oxygen*INVALID FOR*01/20/2018 More... Adjustment disorder with depressed mood [F43.21]INVALID FOR* Constipation [K59.00] INVALID FOR* Leg ulcer, right, with fat layer exposed (HCC) *INVALID FOR* Ulcer of ankle, right, with fat layer exposed (*INVALID FOR* Priority: A More... Venous stasis ulcer (HCC) [I83.009, L97.909] INVALID FOR* Priority: A Anticoagulation goal of INR 2 to 3 [Z51.81, Z79*INVALID FOR* Priority: C More... Class 2 obesity in adult [E66.9] INVALID FOR* Priority: M More... Hypotension due to hypovolemia [I95.89, E86.1] INVALID FOR*05/25/2018 Priority: D More... Pressure injury of skin, stage 2 [L89.92] INVALID FOR*06/27/2018 Priority: E More... H/O noncompliance with medical treatment, prese*INVALID FOR* Priority: E More... CKD (chronic kidney disease), stage III (HCC) [*INVALID FOR* Priority: D Hyperkalemia [E87.5] INVALID FOR*05/24/2018 More... Peripheral vascular disease (HCC) [I73.9] INVALID FOR* Priority: C Sundowning [F05] INVALID FOR*05/25/2018 More... Anemia [D64.9] INVALID FOR* Encounter Status:Closed by [email or web address], PRODUSER on 09/08/18 CBC Collected: 08/07/2018 Status: F Source: [facility] 5:50 AM [facility]POS[facility] TYPE CODE TESTS RESULT OUT OF REFERENCE UNITS RANGE LAB WBC(LOINC) 4.50-10.80 10 3/mcL WBC 7.90 LAB RBCCT(LOINC 4.10-5.30 10 6/mcL ) Low RBC 3.13 LAB HGB(LOINC) 12.0-16.0 G/dL Low Hgb 8.7 LAB HCT(LOINC) 34.0-46.0 % Low Hct 27.2 LAB MCV(LOINC) 80.0-99.0 fL MCV 86.8 LAB MCH(LOINC) 27.0-33.0 pg MCH 27.9 LAB MCHC(LOINC) 32.0-36.0 G/dL MCHC 32.2 LAB RDW(LOINC) 11.5-15.5 % High RDW 18.9 LAB PLT(LOINC) 150-450 10 3/mcL Platelet 344 LAB MPV(LOINC) 6.6-10.5 fL MPV 7.8 Performed By: #### ADIFF, GFR, ANEU, CBC, BMP #### [address] [address] .AUTO DIFF Collected: 08/07/2018 Status: F Source: [facility] 5:50 AM [facility] REPOSITORY TYPE CODE TESTS RESULT OUT OF REFERENCE UNITS RANGE LAB CONSTANTINE(LOINC) 50.0-75.0 % Neutrophil % 56.7 LAB LYM(LOINC) 20.0-40.0 % Lymphocyte % 29.7 LAB MON(LOINC) 2.0-13.0 % Monocyte % 9.5 LAB EO(LOINC) 0.0-6.0 % Eosinophil % 3.1 LAB BAS(LOINC) 0.0-2.5 % Basophil % 1.0 LAB ABLYM(LOIN 0.90-4.32 10 3/mcL C) Lymphocyte, 2.30 Absolute LAB ERNIE(LOINC 0.09-1.40 10 3/mcL ) Monocyte, 0.80 Absolute LAB AEOS(LOINC 0.00-0.65 10 3/mcL ) Eosinophil, 0.20 Absolute LAB ABAS(LOINC 0.00-0.27 10 3/mcL ) Basophil, 0.10 Absolute Performed By: #### ADIFF, GFR, ANEU, CBC, BMP #### [address] [address] .NEUABS Collected: 08/07/2018 Status: F Source: [facility] 5:50 AM [facility] REPOSITORY TYPE CODE TESTS RESULT OUT OF REFERENCE UNITS RANGE LAB ANEU(LOINC) 2.25-8.10 10 3/mcL Neutrophil, 4.50 Absolute Performed By: #### ADIFF, GFR, ANEU, CBC, BMP #### [address] [address] .GFR Collected: 08/07/2018 Status: F Source: [facility] 5:50 AM [facility] REPOSITORY TYPE CODE TESTS RESULT OUT OF REFERENCE UNITS RANGE LAB GFRAA(LOINC ml/min/1.73 ) sqm GFR >60 Romanian Result Comment: GFR Population mean for , Non- Americans Ages 20-29 = 116 mL/min/1.73 sq.m. Ages 30-39 = 107 mL/min/1.73 sq.m. Ages 40-49 = 99 mL/min/1.73 sq.m. Ages 50-59 = 93 mL/min/1.73 sq.m. Ages 60-69 = 85 mL/min/1.73 sq.m. Ages 70+ = 75 mL/min/1.73 sq.m. Chronic Kidney Disease: Less than 60 mL/min/1.73 square meters End Stage Renal Disease: Less than 15 mL/min/1.73 square meters LAB GFRNO(LOINC) ml/min/1.73sqm GFR Non- >60 Result Comment: GFR Population mean for , Non- Americans Ages 20-29 = 116 mL/min/1.73 sq.m. Ages 30-39 = 107 mL/min/1.73 sq.m. Ages 40-49 = 99 mL/min/1.73 sq.m. Ages 50-59 = 93 mL/min/1.73 sq.m. Ages 60-69 = 85 mL/min/1.73 sq.m. Ages 70+ = 75 mL/min/1.73 sq.m. Chronic Kidney Disease: Less than 60 mL/min/1.73 square meters End Stage Renal Disease: Less than 15 mL/min/1.73 square meters Performed By: #### ADIFF, GFR, ANEU, CBC, BMP #### [place] [address] BMP Collected: 08/07/2018 Status: F Source: [facility] 5:50 AM [facility] REPOSITORY TYPE CODE TESTS RESULT OUT OF REFERENCE UNITS RANGE LAB GLU(LOINC) 82-115 mg/dL Glucose Level 90 LAB NA(LOINC) 136-145 mEq/L Sodium Level 139 LAB K(LOINC) 3.5-5.0 mEq/L Potassium Level 4.2 LAB CL(LOINC) 98-110 mEq/L Chloride 98 LAB CO2(LOINC) 22-32 mEq/L CO2 High 36 LAB EBAL(LOINC 4.0-15.0 mEq/L ) Electrolyte Balance 5.0 LAB BUN(LOINC) 8.0-22.0 mg/dL BUN 11.0 LAB CRE(LOINC) 0.50-1.20 mg/dL Creatinine Lvl (s) 0.60 LAB BC(LOINC) 10.0-22.0 ratio BUN/Creatinine 18.3 Ratio LAB CA(LOINC) 8.4-10.1 mg/dL Low Calcium Lvl 7.8 Performed By: #### ADIFF, GFR, ANEU, CBC, BMP #### [place] [address] PROGRESS Observed: 08/04/2018 Status: COMPLETED Source: [facility] 10:57 AM [facility] REPOSITORY HNO ID: [id number] Author: Volodymyr Gilbert Limnology Teacher Service: (none) Author Type: (none) Type: Progress Notes Filed: 08/04/2018 11:05 AM Note Text: I called and spoke with ZENA Velasquez at [facility] ([phone]) who states Rosa is doing well. This past Tuesday she had a skin graph done, no major issues, eating well, doing therapy, non weight bearing, bed bound. Labs been ok, keeping an eye on platelet counts. Still on IV antibiotics. Eva has been in contact with Ciara Daughter in law, Sheron. They're still trying to decide if they're going to take her home with them (they already have home health care set up) or look at [facility] care facilities. They may have a decision next week. PROGRESS Observed: 08/03/2018 Status: COMPLETED Source: [facility] 2:49 PM [facility] REPOSITORY HNO ID: [id number] Author: Volodymyr Gilbert Cma Service: (none) Author Type: (none) Type: Progress Notes Filed: 08/03/2018 2:50 PM Note Text: Left message with Eva [phone] (she will call me back) CBC Collected: 08/03/2018 Status: F Source: [facility] 5:43 AM [facility] REPOSITORY TYPE CODE TESTS RESULT OUT OF REFERENCE UNITS RANGE LAB WBC(LOINC) 4.50-10.80 10 3/mcL WBC 9.80 LAB RBCCT(LOINC 4.10-5.30 10 6/mcL ) Low RBC 3.12 LAB HGB(LOINC) 12.0-16.0 G/dL Low Hgb 8.6 LAB HCT(LOINC) 34.0-46.0 % Low Hct 26.8 LAB MCV(LOINC) 80.0-99.0 fL MCV 85.7 LAB MCH(LOINC) 27.0-33.0 pg MCH 27.7 LAB MCHC(LOINC) 32.0-36.0 G/dL MCHC 32.3 LAB RDW(LOINC) 11.5-15.5 % High RDW 17.6 LAB PLT(LOINC) 150-450 10 3/mcL Platelet 191 LAB MPV(LOINC) 6.6-10.5 fL MPV 7.6 Performed By: #### MORPH, BMP, DIFF, CBC, GFR #### [address] [address] BMP Collected: 08/03/2018 Status: F Source: [facility] 5:43 AM [facility] REPOSITORY TYPE CODE TESTS RESULT OUT OF REFERENCE UNITS RANGE LAB GLU(LOINC) 82-115 mg/dL Glucose Level 92 LAB NA(LOINC) 136-145 mEq/L Sodium Level 140 LAB K(LOINC) 3.5-5.0 mEq/L Potassium Level 3.7 LAB CL(LOINC) 98-110 mEq/L Chloride 100 LAB CO2(LOINC) 22-32 mEq/L CO2 High 34 LAB EBAL(LOINC 4.0-15.0 mEq/L ) Electrolyte Balance 6.0 LAB BUN(LOINC) 8.0-22.0 mg/dL BUN 8.0 LAB CRE(LOINC) 0.50-1.20 mg/dL Creatinine Lvl (s) 0.67 LAB BC(LOINC) 10.0-22.0 ratio BUN/Creatinine 11.9 Ratio LAB CA(LOINC) 8.4-10.1 mg/dL Low Calcium Lvl 7.5 Performed By: #### MORPH, BMP, DIFF, CBC, GFR #### [address] [address] .GFR Collected: 08/03/2018 Status: F Source: [facility] 5:43 AM [facility] REPOSITORY TYPE CODE TESTS RESULT OUT OF REFERENCE UNITS RANGE LAB GFRAA(LOINC ml/min/1.73 ) sqm GFR >60 Romanian Result Comment: GFR Population mean for , Non- Americans Ages 20-29 = 116 mL/min/1.73 sq.m. Ages 30-39 = 107 mL/min/1.73 sq.m. Ages 40-49 = 99 mL/min/1.73 sq.m. Ages 50-59 = 93 mL/min/1.73 sq.m. Ages 60-69 = 85 mL/min/1.73 sq.m. Ages 70+ = 75 mL/min/1.73 sq.m. Chronic Kidney Disease: Less than 60 mL/min/1.73 square meters End Stage Renal Disease: Less than 15 mL/min/1.73 square meters LAB GFRNO(LOINC) ml/min/1.73sqm GFR Non- >60 Result Comment: GFR Population mean for , Non- Americans Ages 20-29 = 116 mL/min/1.73 sq.m. Ages 30-39 = 107 mL/min/1.73 sq.m. Ages 40-49 = 99 mL/min/1.73 sq.m. Ages 50-59 = 93 mL/min/1.73 sq.m. Ages 60-69 = 85 mL/min/1.73 sq.m. Ages 70+ = 75 mL/min/1.73 sq.m. Chronic Kidney Disease: Less than 60 mL/min/1.73 square meters End Stage Renal Disease: Less than 15 mL/min/1.73 square meters Performed By: #### MORPH, BMP, DIFF, CBC, GFR #### [place] [address] .MANUAL DIFF Collected: 08/03/2018 Status: F Source: [facility] 5:43 AM [facility] REPOSITORY TYPE CODE TESTS RESULT OUT OF REFERENCE UNITS RANGE LAB LIMIT(LOIN C) Cells Counted 100 LAB NEUM(LOINC 50.0-75.0 % ) Neutrophil %, 63.0 Manual LAB LYMM(LOINC 20.0-40.0 % ) Lymphocyte %, 27.0 Manual LAB MONM(LOINC 2.0-13.0 % ) Monocyte %, Manual 4.0 LAB EOM(LOINC) 0.0-6.0 % Eosinophil %, 0.0 Manual LAB BASM(LOINC 0.0-2.5 % ) Basophil %, Manual 1.0 LAB BAND(LOINC 0.0-5.0 % ) Bands 2.0 LAB MYEL(LOINC % ) Myelocyte 3.0 LAB ANEUM(LOIN 2.25-8.10 10 3/mcL C) Neutrophil, Abs 6.37 Manual LAB ABLYMM(MONI 0.90-4.32 10 3/mcL NC) Lymphocyte, Abs 2.65 Manual LAB AMONM(LOIN 0.09-1.40 10 3/mcL C) Monocyte, Abs 0.39 Manual LAB AEOSM(LOIN 0.00-0.65 10 3/mcL C) Eosinophil, Abs 0.00 Manual LAB ABASM(LOIN 0.00-0.27 10 3/mcL C) Basophil, Abs 0.10 Manual Performed By: #### MORPH, BMP, DIFF, CBC, GFR #### [address] [address] .MORPH Collected: 08/03/2018 Status: F Source: [facility] 5:43 AM [facility] REPOSITORY TYPE CODE TESTS RESULT OUT OF REFERENCE UNITS RANGE LAB PLTE(LOINC ) Platelet Estimate Normal LAB ANIS(LOINC ) Anisocytosis Slight LAB POIK(LOINC ) Poik Slight LAB HYPC(LOINC ) Hypochrom Slight LAB POLC(LOINC ) Polychrom Slight LAB STMT(LOINC ) Stomatocytes Few Performed By: #### MORPH, BMP, DIFF, CBC, GFR #### [place] [id number] PROGRESS Observed: 08/02/2018 Status: COMPLETED Source: [facility] 8:48 AM [facility] REPOSITORY HNO ID: [id number] Author: Volodymyr Gilbert Cma Service: (none) Author Type: (none) Type: Progress Notes Filed: 08/02/2018 8:51 AM Note Text: I called [facility] the past several weeks and was unable to get a hold of anyone, but Left message for to return call #[phone]. I got a hold of someone today and they said the SW if out of the office at this time, but they took my Name and direct number so they will give her the message and have her give me a call back. CBC Collected: 08/01/2018 Status: F Source: [facility] 5:21 AM [facility] REPOSITORY TYPE CODE TESTS RESULT OUT OF REFERENCE UNITS RANGE LAB WBC(LOINC) 4.50-10.80 10 3/mcL WBC 6.30 LAB RBCCT(LOINC 4.10-5.30 10 6/mcL ) Low RBC 2.95 LAB HGB(LOINC) 12.0-16.0 G/dL Low Hgb 8.2 LAB HCT(LOINC) 34.0-46.0 % Low Hct 25.3 LAB MCV(LOINC) 80.0-99.0 fL MCV 85.8 LAB MCH(LOINC) 27.0-33.0 pg MCH 27.7 LAB MCHC(LOINC) 32.0-36.0 G/dL MCHC 32.3 LAB RDW(LOINC) 11.5-15.5 % High RDW 17.5 LAB PLT(LOINC) 150-450 10 3/mcL Low Platelet 99 LAB MPV(LOINC) 6.6-10.5 fL MPV 7.7 Performed By: #### MORPH, DIFF, CBC #### [place] [address] .MANUAL DIFF Collected: 08/01/2018 Status: F Source: [facility] 5:21 AM [facility] REPOSITORY TYPE CODE TESTS RESULT OUT OF REFERENCE UNITS RANGE LAB LIMIT(LOIN C) Cells Counted 100 LAB NEUM(LOINC 50.0-75.0 % ) Low Neutrophil %, 47.0 Manual LAB LYMM(LOINC 20.0-40.0 % ) Lymphocyte %, 37.0 Manual LAB MONM(LOINC 2.0-13.0 % ) Monocyte High %, Manual 14.0 LAB EOM(LOINC) 0.0-6.0 % Eosinophil %, 1.0 Manual LAB BASM(LOINC 0.0-2.5 % ) Basophil %, Manual 1.0 LAB ANEUM(LOIN 2.25-8.10 10 3/mcL C) Neutrophil, Abs 2.96 Manual LAB ABLYMM(MONI 0.90-4.32 10 3/mcL NC) Lymphocyte, Abs 2.33 Manual LAB AMONM(LOIN 0.09-1.40 10 3/mcL C) Monocyte, Abs 0.88 Manual LAB AEOSM(LOIN 0.00-0.65 10 3/mcL C) Eosinophil, Abs 0.06 Manual LAB ABASM(LOIN 0.00-0.27 10 3/mcL C) Basophil, Abs 0.06 Manual Performed By: #### MORPH, DIFF, CBC #### [address] [address] .MORPH Collected: 08/01/2018 Status: F Source: [facility] 5:21 AM [facility] REPOSITORY TYPE CODE TESTS RESULT OUT OF REFERENCE UNITS RANGE LAB PLTE(LOINC ) Platelet Estimate Decreased LAB ANIS(LOINC ) Anisocytosis Slight LAB POIK(LOINC ) Poik Slight LAB OVAL(LOINC ) Ovalocytes Few Performed By: #### MORPH, DIFF, CBC #### [address] [address] CBC Collected: 07/31/2018 Status: F Source: [facility] 8:11 AM [facility] REPOSITORY TYPE CODE TESTS RESULT OUT OF REFERENCE UNITS RANGE LAB WBC(LOINC) 4.50-10.80 10 3/mcL WBC 6.10 LAB RBCCT(LOINC 4.10-5.30 10 6/mcL ) Low RBC 3.16 LAB HGB(LOINC) 12.0-16.0 G/dL Low Hgb 8.7 LAB HCT(LOINC) 34.0-46.0 % Low Hct 27.0 LAB MCV(LOINC) 80.0-99.0 fL MCV 85.6 LAB MCH(LOINC) 27.0-33.0 pg MCH 27.5 LAB MCHC(LOINC) 32.0-36.0 G/dL MCHC 32.2 LAB RDW(LOINC) 11.5-15.5 % High RDW 17.6 LAB PLT(LOINC) 150-450 10 3/mcL Low Platelet 83 LAB MPV(LOINC) 6.6-10.5 fL MPV 7.2 Performed By: #### ANEU, ADIFF, CBC #### [address] [address] .AUTO DIFF Collected: 07/31/2018 Status: F Source: [facility] 8:11 AM [facility] REPOSITORY TYPE CODE TESTS RESULT OUT OF REFERENCE UNITS RANGE LAB CONSTANTINE(LOINC) 50.0-75.0 % Low Neutrophil % 45.6 LAB LYM(LOINC) 20.0-40.0 % Lymphocyte % 34.6 LAB MON(LOINC) 2.0-13.0 % Monocyte High % 17.3 LAB EO(LOINC) 0.0-6.0 % Eosinophil % 1.5 LAB BAS(LOINC) 0.0-2.5 % Basophil % 1.0 LAB ABLYM(LOIN 0.90-4.32 10 3/mcL C) Lymphocyte, 2.10 Absolute LAB ERNIE(LOINC 0.09-1.40 10 3/mcL ) Monocyte, 1.10 Absolute LAB AEOS(LOINC 0.00-0.65 10 3/mcL ) Eosinophil, 0.10 Absolute LAB ABAS(LOINC 0.00-0.27 10 3/mcL ) Basophil, 0.10 Absolute Performed By: #### DORA MENDOZA, CBC #### [place] [address] .NEUABS Collected: 07/31/2018 Status: F Source: [facility] 8:11 AM [facility] REPOSITORY TYPE CODE TESTS RESULT OUT OF REFERENCE UNITS RANGE LAB ANEU(LOINC) 2.25-8.10 10 3/mcL Neutrophil, 2.80 Absolute Performed By: #### DORA MENDOZA, CBC #### [place] [address] CBC Collected: 07/30/2018 Status: F Source: [facility] 5:36 AM [facility] REPOSITORY TYPE CODE TESTS RESULT OUT OF REFERENCE UNITS RANGE LAB WBC(LOINC) 4.50-10.80 10 3/mcL Low WBC 4.00 LAB RBCCT(LOINC 4.10-5.30 10 6/mcL ) Low RBC 3.09 LAB HGB(LOINC) 12.0-16.0 G/dL Low Hgb 8.6 LAB HCT(LOINC) 34.0-46.0 % Low Hct 26.4 LAB MCV(LOINC) 80.0-99.0 fL MCV 85.5 LAB MCH(LOINC) 27.0-33.0 pg MCH 27.8 LAB MCHC(LOINC) 32.0-36.0 G/dL MCHC 32.5 LAB RDW(LOINC) 11.5-15.5 % High RDW 17.9 LAB PLT(LOINC) 150-450 10 3/mcL Low Platelet 86 LAB MPV(LOINC) 6.6-10.5 fL MPV 7.6 Performed By: #### DORA MENDOZA, CBC #### [place] [address] .AUTO DIFF Collected: 07/30/2018 Status: F Source: [facility] 5:36 AM [facility] REPOSITORY TYPE CODE TESTS RESULT OUT OF REFERENCE UNITS RANGE LAB CONSTANTINE(LOINC) 50.0-75.0 % Low Neutrophil % 36.2 LAB LYM(LOINC) 20.0-40.0 % High Lymphocyte % 47.3 LAB MON(LOINC) 2.0-13.0 % Monocyte % 11.2 LAB EO(LOINC) 0.0-6.0 % Eosinophil % 4.3 LAB BAS(LOINC) 0.0-2.5 % Basophil % 1.0 LAB ABLYM(LOIN 0.90-4.32 10 3/mcL C) Lymphocyte, 1.90 Absolute LAB ERNIE(LOINC 0.09-1.40 10 3/mcL ) Monocyte, 0.40 Absolute LAB AEOS(LOINC 0.00-0.65 10 3/mcL ) Eosinophil, 0.20 Absolute LAB ABAS(LOINC 0.00-0.27 10 3/mcL ) Basophil, 0.00 Absolute Performed By: #### DORA MENDOZA, CBC #### [place] [address] .NEUABS Collected: 07/30/2018 Status: F Source: [facility] 5:36 AM [facility] REPOSITORY TYPE CODE TESTS RESULT OUT OF REFERENCE UNITS RANGE LAB ANEU(LOINC) 2.25-8.10 10 3/mcL Low Neutrophil, 1.40 Absolute Performed By: #### DORA MENDOZA, CBC #### [place] [address] RAPTEG Collected: 07/30/2018 Status: F Source: [facility] 5:36 AM [facility] REPOSITORY TYPE CODE TESTS RESULT OUT OF REFERENCE UNITS RANGE LAB RTEGR(LOINC 0.0-1.0 minutes ) R TEG 0.7 Rapid LAB KTEGR(LOINC 1.0-2.0 minutes ) K TEG 1.0 Rapid LAB ATEGR(LOINC 64.0-80.0 degrees ) Angle TEG 78.2 Rapid LAB MATEGR(LOIN 52.0-71.0 mm C) MA TEG 60.2 Rapid LAB [id number](MONI 0.0-8.0 % NC) LY30 0.1 Lysis TEG LAB TEGACT(LOIN 86.0-118.0 second(s) C) TEG ACT 113.0 Performed By: #### RAPTEG #### [place] [address] CBC Collected: 07/29/2018 Status: F Source: [facility] 5:46 AM [facility] REPOSITORY TYPE CODE TESTS RESULT OUT OF REFERENCE UNITS RANGE LAB WBC(LOINC) 4.50-10.80 10 3/mcL Low WBC 3.50 LAB RBCCT(LOINC 4.10-5.30 10 6/mcL ) Low RBC 3.16 LAB HGB(LOINC) 12.0-16.0 G/dL Low Hgb 8.5 LAB HCT(LOINC) 34.0-46.0 % Low Hct 27.0 LAB MCV(LOINC) 80.0-99.0 fL MCV 85.5 LAB MCH(LOINC) 27.0-33.0 pg MCH 27.0 LAB MCHC(LOINC) 32.0-36.0 G/dL Low MCHC 31.6 LAB RDW(LOINC) 11.5-15.5 % High RDW 18.0 LAB PLT(LOINC) 150-450 10 3/mcL Low Platelet 90 LAB MPV(LOINC) 6.6-10.5 fL MPV 7.3 Performed By: #### CBC, ADIFF, ANEU #### [address] [address] .AUTO DIFF Collected: 07/29/2018 Status: F Source: [facility] 5:46 AM [facility] REPOSITORY TYPE CODE TESTS RESULT OUT OF REFERENCE UNITS RANGE LAB CONSTANTINE(LOINC) 50.0-75.0 % Low Neutrophil % 43.7 LAB LYM(LOINC) 20.0-40.0 % High Lymphocyte % 43.5 LAB MON(LOINC) 2.0-13.0 % Monocyte % 7.3 LAB EO(LOINC) 0.0-6.0 % Eosinophil % 4.3 LAB BAS(LOINC) 0.0-2.5 % Basophil % 1.2 LAB ABLYM(LOIN 0.90-4.32 10 3/mcL C) Lymphocyte, 1.50 Absolute LAB ERNIE(LOINC 0.09-1.40 10 3/mcL ) Monocyte, 0.30 Absolute LAB AEOS(LOINC 0.00-0.65 10 3/mcL ) Eosinophil, 0.10 Absolute LAB ABAS(LOINC 0.00-0.27 10 3/mcL ) Basophil, 0.00 Absolute Performed By: #### CBCDORA, ANEU #### [place] [address] .NEUABS Collected: 07/29/2018 Status: F Source: [facility] 5:46 AM [facility] REPOSITORY TYPE CODE TESTS RESULT OUT OF REFERENCE UNITS RANGE LAB ANEU(LOINC) 2.25-8.10 10 3/mcL Low Neutrophil, 1.50 Absolute Performed By: #### CBCDORA, ANEU #### [place] [address] CBC Collected: 07/28/2018 Status: F Source: [facility] 5:32 AM [facility] REPOSITORY TYPE CODE TESTS RESULT OUT OF REFERENCE UNITS RANGE LAB WBC(LOINC) 4.50-10.80 10 3/mcL Low WBC 3.70 LAB RBCCT(LOINC 4.10-5.30 10 6/mcL ) Low RBC 3.12 LAB HGB(LOINC) 12.0-16.0 G/dL Low Hgb 8.5 LAB HCT(LOINC) 34.0-46.0 % Low Hct 26.5 LAB MCV(LOINC) 80.0-99.0 fL MCV 84.9 LAB MCH(LOINC) 27.0-33.0 pg MCH 27.2 LAB MCHC(LOINC) 32.0-36.0 G/dL MCHC 32.0 LAB RDW(LOINC) 11.5-15.5 % High RDW 18.2 LAB PLT(LOINC) 150-450 10 3/mcL Low Platelet 97 LAB MPV(LOINC) 6.6-10.5 fL MPV 7.0 Performed By: #### CBCDORA, ANEU #### [place] [address] .AUTO DIFF Collected: 07/28/2018 Status: F Source: [facility] 5:32 AM [facility] REPOSITORY TYPE CODE TESTS RESULT OUT OF REFERENCE UNITS RANGE LAB CONSTANTINE(LOINC) 50.0-75.0 % Low Neutrophil % 45.9 LAB LYM(LOINC) 20.0-40.0 % High Lymphocyte % 42.1 LAB MON(LOINC) 2.0-13.0 % Monocyte % 5.7 LAB EO(LOINC) 0.0-6.0 % Eosinophil % 5.2 LAB BAS(LOINC) 0.0-2.5 % Basophil % 1.1 LAB ABLYM(LOIN 0.90-4.32 10 3/mcL C) Lymphocyte, 1.60 Absolute LAB ERNIE(LOINC 0.09-1.40 10 3/mcL ) Monocyte, 0.20 Absolute LAB AEOS(LOINC 0.00-0.65 10 3/mcL ) Eosinophil, 0.20 Absolute LAB ABAS(LOINC 0.00-0.27 10 3/mcL ) Basophil, 0.00 Absolute Performed By: #### CBC, ADIFF, ANEU #### [place] [address] .NEUABS Collected: 07/28/2018 Status: F Source: [facility] 5:32 AM [facility] REPOSITORY TYPE CODE TESTS RESULT OUT OF REFERENCE UNITS RANGE LAB ANEU(LOINC) 2.25-8.10 10 3/mcL Low Neutrophil, 1.70 Absolute Performed By: #### CBC, ADIFF, ANEU #### [place] [address] TABO Collected: 07/27/2018 Status: F Source: [facility] 12:20 PM [facility] REPOSITORY TYPE CODE TESTS RESULT OUT OF RANGE REFERENCE UNITS LAB ABORH(LOINC ) Unknown ABO/Rh O POS Interp Performed By: #### ANTIS, ABORH #### [place] [address] TABS Collected: 07/27/2018 Status: F Source: [facility] 12:20 PM [facility] REPOSITORY TYPE CODE TESTS RESULT OUT OF REFERENCE UNITS RANGE LAB ANST(LOINC ) Antibody Negative ABSC Screen Tango Performed By: #### ANTIS, ABORH #### [address] [address] RBC (PRODUCT) Collected: 07/27/2018 Status: F Source: [facility] 10:47 AM [facility] REPOSITORY TYPE CODE TESTS RESULT OUT OF REFERENCE UNITS RANGE LAB RBCPR(LOINC ) RBC Product RBC Ready Ready for Pickup Performed By: #### RBCP #### [address] [id number] HFP Collected: 07/27/2018 Status: F Source: [facility] 5:24 AM [facility] REPOSITORY TYPE CODE TESTS RESULT OUT OF REFERENCE UNITS RANGE LAB PROT(LOINC) 6.0-8.5 G/dL Low Total Protein 5.5 LAB ALB(LOINC) 3.2-4.8 G/dL Low Albumin Level 1.5 LAB GLB(LOINC) 1.5-3.8 G/dL High Globulin 4.0 LAB AG(LOINC) 0.9-1.6 ratio Low A/G Ratio 0.4 LAB BILT(LOINC) 0.2-1.2 mg/dL Bili Total 0.2 LAB BILAD(LOINC 0.0-0.4 mg/dL ) Bili Direct 0.1 LAB BILI(LOINC) 0.1-10.0 mg/dL Bili Indirect 0.1 LAB AP(LOINC) 38-126 U/L Alk Phos 81 LAB AST(LOINC) 8-34 U/L AST/SGOT 19 LAB ALT(LOINC) 10-49 U/L Low ALT/SGPT 9 Performed By: #### HFP #### [place] [id number] PROGRESS Observed: 07/26/2018 Status: COMPLETED Source: [facility] 8:50 AM [facility] REPOSIT[facility] HNO ID: [id number] Author: Volodymyr Gilbert Cma Service: (none) Author Type: (none) Type: Progress Notes Filed: 07/26/2018 8:54 AM Note Text: Left message for at [facility] to call me back. CBC Collected: 07/26/2018 Status: F Source: [facility] 6:23 AM [facility] REPOSITORY TYPE CODE TESTS RESULT OUT OF REFERENCE UNITS RANGE LAB WBC(LOINC) 4.50-10.80 10 3/mcL Low WBC 4.20 LAB RBCCT(LOINC 4.10-5.30 10 6/mcL ) Low RBC 2.87 LAB HGB(LOINC) 12.0-16.0 G/dL Low Hgb 7.9 LAB HCT(LOINC) 34.0-46.0 % Low Hct 24.9 LAB MCV(LOINC) 80.0-99.0 fL MCV 86.5 LAB MCH(LOINC) 27.0-33.0 pg MCH 27.6 LAB MCHC(LOINC) 32.0-36.0 G/dL Low MCHC 31.8 LAB RDW(LOINC) 11.5-15.5 % High RDW 18.0 LAB PLT(LOINC) 150-450 10 3/mcL Low Platelet 138 LAB MPV(LOINC) 6.6-10.5 fL MPV 6.8 Performed By: #### CBC, ADIFF, ANEU #### [address] [id number] .AUTO DIFF Collected: 07/26/2018 Status: F Source: [facility] 6:23 AM [facility] REPOSITORY TYPE CODE TESTS RESULT OUT OF REFERENCE UNITS RANGE LAB CONSTANTINE(LOINC) 50.0-75.0 % Neutrophil % 51.4 LAB LYM(LOINC) 20.0-40.0 % Lymphocyte % 38.5 LAB MON(LOINC) 2.0-13.0 % Monocyte % 4.3 LAB EO(LOINC) 0.0-6.0 % Eosinophil % 5.0 LAB BAS(LOINC) 0.0-2.5 % Basophil % 0.8 LAB ABLYM(LOIN 0.90-4.32 10 3/mcL C) Lymphocyte, 1.60 Absolute LAB ERNIE(LOINC 0.09-1.40 10 3/mcL ) Monocyte, 0.20 Absolute LAB AEOS(LOINC 0.00-0.65 10 3/mcL ) Eosinophil, 0.20 Absolute LAB ABAS(LOINC 0.00-0.27 10 3/mcL ) Basophil, 0.00 Absolute Performed By: #### CBC, ADIFF, ANEU #### [address] [id number] .NEUABS Collected: 07/26/2018 Status: F Source: [facility] 6:23 AM [facility] REPOSITORY TYPE CODE TESTS RESULT OUT OF REFERENCE UNITS RANGE LAB ANEU(LOINC) 2.25-8.10 10 3/mcL Low Neutrophil, 2.20 Absolute Performed By: #### CBC, ADIFF, ANEU #### [address] [id number] CBC Collected: 07/25/2018 Status: F Source: [facility] 6:40 AM [facility] REPOSITORY TYPE CODE TESTS RESULT OUT OF REFERENCE UNITS RANGE LAB WBC(LOINC) 4.50-10.80 10 3/mcL Low WBC 4.40 LAB RBCCT(LOINC 4.10-5.30 10 6/mcL ) Low RBC 2.79 LAB HGB(LOINC) 12.0-16.0 G/dL Low Hgb 7.7 LAB HCT(LOINC) 34.0-46.0 % Low Hct 24.1 LAB MCV(LOINC) 80.0-99.0 fL MCV 86.4 LAB MCH(LOINC) 27.0-33.0 pg MCH 27.7 LAB MCHC(LOINC) 32.0-36.0 G/dL MCHC 32.1 LAB RDW(LOINC) 11.5-15.5 % High RDW 18.6 LAB PLT(LOINC) 150-450 10 3/mcL Low Platelet 144 LAB MPV(LOINC) 6.6-10.5 fL MPV 6.6 Performed By: #### ANEU, ADIFF, BMP, CBC, GFR #### [address] [address] .AUTO DIFF Collected: 07/25/2018 Status: F Source: [facility] 6:40 AM [facility] REPOSITORY TYPE CODE TESTS RESULT OUT OF REFERENCE UNITS RANGE LAB CONSTANTINE(LOINC) 50.0-75.0 % Neutrophil % 58.0 LAB LYM(LOINC) 20.0-40.0 % Lymphocyte % 30.3 LAB MON(LOINC) 2.0-13.0 % Monocyte % 4.7 LAB EO(LOINC) 0.0-6.0 % Eosinophil % 5.9 LAB BAS(LOINC) 0.0-2.5 % Basophil % 1.1 LAB ABLYM(LOIN 0.90-4.32 10 3/mcL C) Lymphocyte, 1.30 Absolute LAB ERNIE(LOINC 0.09-1.40 10 3/mcL ) Monocyte, 0.20 Absolute LAB AEOS(LOINC 0.00-0.65 10 3/mcL ) Eosinophil, 0.30 Absolute LAB ABAS(LOINC 0.00-0.27 10 3/mcL ) Basophil, 0.00 Absolute Performed By: #### ANEU, ADIFF, BMP, CBC, GFR #### [place] [address] .NEUABS Collected: 07/25/2018 Status: F Source: [facility] 6:40 AM [facility] REPOSITORY TYPE CODE TESTS RESULT OUT OF REFERENCE UNITS RANGE LAB ANEU(LOINC) 2.25-8.10 10 3/mcL Neutrophil, 2.60 Absolute Performed By: #### ANEU, ADIFF, BMP, CBC, GFR #### [place] [address] BMP Collected: 07/25/2018 Status: F Source: [facility] 6:40 AM [facility] REPOSITORY TYPE CODE TESTS RESULT OUT OF REFERENCE UNITS RANGE LAB GLU(LOINC) 82-115 mg/dL Low Glucose Level 66 LAB NA(LOINC) 136-145 mEq/L Sodium Level 136 LAB K(LOINC) 3.5-5.0 mEq/L Potassium Level 4.5 LAB CL(LOINC) 98-110 mEq/L Chloride 100 LAB CO2(LOINC) 22-32 mEq/L CO2 29 LAB EBAL(LOINC 4.0-15.0 mEq/L ) Electrolyte Balance 7.0 LAB BUN(LOINC) 8.0-22.0 mg/dL BUN 19.0 LAB CRE(LOINC) 0.50-1.20 mg/dL Creatinine Lvl (s) 0.99 LAB BC(LOINC) 10.0-22.0 ratio BUN/Creatinine 19.2 Ratio LAB CA(LOINC) 8.4-10.1 mg/dL Low Calcium Lvl 7.4 Performed By: #### ANEU, ADIFF, BMP, CBC, GFR #### [place] [address] .GFR Collected: 07/25/2018 Status: F Source: [facility] 6:40 AM [facility] REPOSITORY TYPE CODE TESTS RESULT OUT OF REFERENCE UNITS RANGE LAB GFRAA(LOINC ml/min/1.73 ) sqm GFR >60 Romanian Result Comment: GFR Population mean for , Non- Americans Ages 20-29 = 116 mL/min/1.73 sq.m. Ages 30-39 = 107 mL/min/1.73 sq.m. Ages 40-49 = 99 mL/min/1.73 sq.m. Ages 50-59 = 93 mL/min/1.73 sq.m. Ages 60-69 = 85 mL/min/1.73 sq.m. Ages 70+ = 75 mL/min/1.73 sq.m. Chronic Kidney Disease: Less than 60 mL/min/1.73 square meters End Stage Renal Disease: Less than 15 mL/min/1.73 square meters LAB GFRNO(LOINC) ml/min/1.73sqm GFR Non- 54 Result Comment: GFR Population mean for , Non- Americans Ages 20-29 = 116 mL/min/1.73 sq.m. Ages 30-39 = 107 mL/min/1.73 sq.m. Ages 40-49 = 99 mL/min/1.73 sq.m. Ages 50-59 = 93 mL/min/1.73 sq.m. Ages 60-69 = 85 mL/min/1.73 sq.m. Ages 70+ = 75 mL/min/1.73 sq.m. Chronic Kidney Disease: Less than 60 mL/min/1.73 square meters End Stage Renal Disease: Less than 15 mL/min/1.73 square meters Performed By: #### ANEU, ADIFF, BMP, CBC, GFR #### [place] [address] CAION Collected: 07/24/2018 Status: F Source: [facility] 6:38 AM [facility] REPOSITORY TYPE CODE TESTS RESULT OUT OF REFERENCE UNITS RANGE LAB CAION(LOINC 1.12-1.32 mmol/L ) Calcium 1.12 Ionized Performed By: #### CAION #### [place] [address] BMP Collected: 07/23/2018 Status: F Source: [facility] 5:33 AM [facility] REPOSITORY TYPE CODE TESTS RESULT OUT OF REFERENCE UNITS RANGE LAB GLU(LOINC) 82-115 mg/dL Low Glucose Level 67 LAB NA(LOINC) 136-145 mEq/L Low Sodium Level 135 LAB K(LOINC) 3.5-5.0 mEq/L Potassium Level 4.9 LAB CL(LOINC) 98-110 mEq/L Chloride 100 LAB CO2(LOINC) 22-32 mEq/L CO2 29 LAB EBAL(LOINC 4.0-15.0 mEq/L ) Electrolyte Balance 6.0 LAB BUN(LOINC) 8.0-22.0 mg/dL BUN High 24.0 LAB CRE(LOINC) 0.50-1.20 mg/dL Creatinine Lvl (s) 1.11 LAB BC(LOINC) 10.0-22.0 ratio BUN/Creatinine 21.6 Ratio LAB CA(LOINC) 8.4-10.1 mg/dL Low Calcium Lvl 7.5 Performed By: #### GFR, BMP #### [place] [address] .GFR Collected: 07/23/2018 Status: F Source: [facility] 5:33 AM [facility] REPOSITORY TYPE CODE TESTS RESULT OUT OF REFERENCE UNITS RANGE LAB GFRAA(LOINC ml/min/1.73 ) sqm GFR 57 Romanian Result Comment: GFR Population mean for , Non- Americans Ages 20-29 = 116 mL/min/1.73 sq.m. Ages 30-39 = 107 mL/min/1.73 sq.m. Ages 40-49 = 99 mL/min/1.73 sq.m. Ages 50-59 = 93 mL/min/1.73 sq.m. Ages 60-69 = 85 mL/min/1.73 sq.m. Ages 70+ = 75 mL/min/1.73 sq.m. Chronic Kidney Disease: Less than 60 mL/min/1.73 square meters End Stage Renal Disease: Less than 15 mL/min/1.73 square meters LAB GFRNO(LOINC) ml/min/1.73sqm GFR Non- 47 Result Comment: GFR Population mean for , Non- Americans Ages 20-29 = 116 mL/min/1.73 sq.m. Ages 30-39 = 107 mL/min/1.73 sq.m. Ages 40-49 = 99 mL/min/1.73 sq.m. Ages 50-59 = 93 mL/min/1.73 sq.m. Ages 60-69 = 85 mL/min/1.73 sq.m. Ages 70+ = 75 mL/min/1.73 sq.m. Chronic Kidney Disease: Less than 60 mL/min/1.73 square meters End Stage Renal Disease: Less than 15 mL/min/1.73 square meters Performed By: #### GFR, BMP #### [place] [id number] BMP Collected: 07/22/2018 Status: F Source: [facility] 6:26 AM [facility] REPOSITORY TYPE CODE TESTS RESULT OUT OF REFERENCE UNITS RANGE LAB GLU(LOINC) 82-115 mg/dL Glucose Level 87 LAB NA(LOINC) 136-145 mEq/L Low Sodium Level 134 LAB K(LOINC) 3.5-5.0 mEq/L Potassium High Level 5.2 LAB CL(LOINC) 98-110 mEq/L Chloride 99 LAB CO2(LOINC) 22-32 mEq/L CO2 27 LAB EBAL(LOINC 4.0-15.0 mEq/L ) Electrolyte Balance 8.0 LAB BUN(LOINC) 8.0-22.0 mg/dL BUN High 24.0 LAB CRE(LOINC) 0.50-1.20 mg/dL Creatinine Lvl (s) 1.08 LAB BC(LOINC) 10.0-22.0 ratio High BUN/Creatinine 22.2 Ratio LAB CA(LOINC) 8.4-10.1 mg/dL Low Calcium Lvl 7.6 Performed By: #### GFR, BMP #### [place] [address] .GFR Collected: 07/22/2018 Status: F Source: [facility] 6:26 [facility] REPOSITORY TYPE CODE TESTS RESULT OUT OF REFERENCE UNITS RANGE LAB GFRAA(LOINC ml/min/1.73 ) sqm GFR 59 Romanian Result Comment: GFR Population mean for , Non- Americans Ages 20-29 = 116 mL/min/1.73 sq.m. Ages 30-39 = 107 mL/min/1.73 sq.m. Ages 40-49 = 99 mL/min/1.73 sq.m. Ages 50-59 = 93 mL/min/1.73 sq.m. Ages 60-69 = 85 mL/min/1.73 sq.m. Ages 70+ = 75 mL/min/1.73 sq.m. Chronic Kidney Disease: Less than 60 mL/min/1.73 square meters End Stage Renal Disease: Less than 15 mL/min/1.73 square meters LAB GFRNO(LOINC) ml/min/1.73sqm GFR Non- 49 Result Comment: GFR Population mean for , Non- Americans Ages 20-29 = 116 mL/min/1.73 sq.m. Ages 30-39 = 107 mL/min/1.73 sq.m. Ages 40-49 = 99 mL/min/1.73 sq.m. Ages 50-59 = 93 mL/min/1.73 sq.m. Ages 60-69 = 85 mL/min/1.73 sq.m. Ages 70+ = 75 mL/min/1.73 sq.m. Chronic Kidney Disease: Less than 60 mL/min/1.73 square meters End Stage Renal Disease: Less than 15 mL/min/1.73 square meters Performed By: #### GFR, [facility] #### [place] [address] IR PICC LINE PLACEMENT Observed: 07/21/2018 Status: F Source: [facility] 1:00 PM [facility] REPOSITORY ORIGINAL PROCEDURE(S): 1. PICC placement with fluoroscopy and ultrasound guidance ASSISTANT ADMINISTRATOR: Gay Lam PA-C CLINICAL HISTORY: Patient requires long-term IV antibiotic treatment of chronic wound infections MATERIALS: MedComp 5 Fr dual lumen PICC Probe cover CHG dressing FLUORO: 240 seconds AIR KERMA DOSE: 31.87 mGy ACCESS VESSEL: Left basilic vein TIP LOCATION: Near the cavoatrial junction CATHETER LENGTH: 46 cm PROCEDURE: The procedure, risks, and alternatives, were discussed and all questions were answered. Written informed consent obtained. Accompanying paperwork was verified for accuracy. Directed history and physical exam performed prior to the procedure. Medication reconciliation performed by nursing personnel. Procedure was performed using a cap, sterile gown, sterile gloves, a large sterile sheet, hand hygiene a nd 2% chlorhexidine for cutaneous antisepsis. The patient was positioned on the table and prepped and draped in usual sterile fashion. A critical pause was performed with assisting personnel just prior to the procedure with the patient's identity confirmed using 2 identifiers, confirming site and side. A preliminary ultrasound was performed demonstrating vessel patency with flow. An image was obtained. 2% lidocaine was administered at the puncture site for local anesthesia. Under direct ultrasound guidance, a 21 gauge needle was used to access the vein. A wire was advanced and a peel-away sheath was placed. A small skin incision was made. The catheter length was measured u sing the guidewire. After trimming the PICC to the appropriate length, it was advanced through the sheath lead by the wire under fluoroscopy. The catheter was positioned with the tip positioned as above. Function of catheter lumens was evaluated and appropriate. A sterile dressing was applied. The catheter was secured to the skin. The patient tolerated the procedure well without immediate complication. Blood loss was minimal. Patient condition was stable. IMPRESSION: 1. Successful PICC placement. Procedure was performed by Gay Lam PA-C. I concur with the contents of this report. Interpreted By: Saad Busby MD Preliminary Report By: Gay Lam PA-C Electronically Signed By: Saad Busby MD Dictated Date: 07/21/2018 3:51:51 PM Prelim Date: 07/21/2018 3:52:17 PM Sign Date: 07/21/2018 5:59:16 PM BMP Collected: 07/21/2018 Status: F Source: [facility] 7:54 AM [facility] REPOSITORY TYPE CODE TESTS RESULT OUT OF REFERENCE UNITS RANGE LAB GLU(LOINC) 82-115 mg/dL Low Glucose Level 76 LAB NA(LOINC) 136-145 mEq/L Low Sodium Level 135 LAB K(LOINC) 3.5-5.0 mEq/L Potassium High Level 5.4 LAB CL(LOINC) 98-110 mEq/L Chloride 100 LAB CO2(LOINC) 22-32 mEq/L CO2 28 LAB EBAL(LOINC 4.0-15.0 mEq/L ) Electrolyte Balance 7.0 LAB BUN(LOINC) 8.0-22.0 mg/dL BUN High 25.0 LAB CRE(LOINC) 0.50-1.20 mg/dL Creatinine Lvl (s) 1.16 LAB BC(LOINC) 10.0-22.0 ratio BUN/Creatinine 21.6 Ratio LAB CA(LOINC) 8.4-10.1 mg/dL Low Calcium Lvl 7.7 Performed By: #### GFR, BMP #### [address] [address] .GFR Collected: 07/21/2018 Status: F Source: [facility] 7:54 AM [facility] REPOSITORY TYPE CODE TESTS RESULT OUT OF REFERENCE UNITS RANGE LAB GFRAA(LOINC ml/min/1.73 ) sqm GFR 54 Romanian Result Comment: GFR Population mean for , Non- Americans Ages 20-29 = 116 mL/min/1.73 sq.m. Ages 30-39 = 107 mL/min/1.73 sq.m. Ages 40-49 = 99 mL/min/1.73 sq.m. Ages 50-59 = 93 mL/min/1.73 sq.m. Ages 60-69 = 85 mL/min/1.73 sq.m. Ages 70+ = 75 mL/min/1.73 sq.m. Chronic Kidney Disease: Less than 60 mL/min/1.73 square meters End Stage Renal Disease: Less than 15 mL/min/1.73 square meters LAB GFRNO(LOINC) ml/min/1.73sqm GFR Non- 45 Result Comment: GFR Population mean for , Non- Americans Ages 20-29 = 116 mL/min/1.73 sq.m. Ages 30-39 = 107 mL/min/1.73 sq.m. Ages 40-49 = 99 mL/min/1.73 sq.m. Ages 50-59 = 93 mL/min/1.73 sq.m. Ages 60-69 = 85 mL/min/1.73 sq.m. Ages 70+ = 75 mL/min/1.73 sq.m. Chronic Kidney Disease: Less than 60 mL/min/1.73 square meters End Stage Renal Disease: Less than 15 mL/min/1.73 square meters Performed By: #### GFR, BMP #### [address] [address] PROGRESS Observed: 07/20/2018 Status: COMPLETED Source: [facility] 10:05 AM [facility] REPOSITORY HNO ID: [id number] Author: Kapil ParksPtSantino Rose Service: (none) Author Type: Physical Therapist Type: Progress Notes Filed: 07/20/2018 10:07 AM Note Text: The appointment was cancelled for this patient. During a chart review, it was noted that patient has had a change in medical status and was hospitalized. It appears she is now at [facility]. Patient did not show for this appointment and she is unable to attend Out- pt PT for wound care due to hospitalization. Kapil Rose PT CNTHERAPY Observed: 07/20/2018 Status: COMPLETED Source: [facility] 9:30 AM [facility] REPOSITORY OT/PT/Speech Visit (PTMDRG) ROSA BELTRAN ([id number]) 1935 F Date Time Provider Department 07/20/18 9:30 AM KAPIL ROSE (PT) PTMDRG Date Time Provider Department [place] 07/20/2018 9:30 AM [id number], KELLY (PT)PTMDRG [facility] Reason for Visit: Appointment Cancelled [1023] Primary Visit Diagnosis:APPOINTMENT CANCELLED Allergies As of Date: 07/20/2018 (No Known Allergies) Date Reviewed: 06/27/2018 Reviewed by: Belle Ignacio RN - Fully Assessed Prescriptions as of 07/20/2018 Sig: MENTHOL 0.44 %-ZINC OXIDE 20.* Apply 1 application to affect* CEPHALEXIN 500 MG CAPSULE Take 1 capsule by mouth three* NYSTATIN 100,000 UNIT/GRAM TO* Apply 1 application to affect* DEXTRAN 70-HYPROMELLOSE EYE D* Use 1 Drop in both eyes as ne* FUROSEMIDE 40 MG TABLET Take 1 tablet by mouth once d* OMEPRAZOLE 20 MG CAPSULE,LUIS MIGUEL* Take 1 capsule by mouth once * WARFARIN 3 MG TABLET Take 1 tablet by mouth daily * Patient taking differently: Take 3 mg by mouth once daily* GABAPENTIN 300 MG CAPSULE Take 1 capsule by mouth twice* ASPIRIN 81 MG TABLET,DELAYED * Take 81 mg by mouth every jean* LEVOTHYROXINE 100 MCG TABLET Take 1 tablet by mouth once d* Progress Notes: Kapil Rose PT 07/20/2018 10:07 AM Signed The appointment was cancelled for this patient. During a chart review, it was noted that patient has had a change in medical status and was hospitalized. It appears she is now at [facility]. Patient did not show for this appointment and she is unable to attend Out-pt PT for wound care due to hospitalization. Kapil Rose, PT BMP Collected: 07/20/2018 Status: F Source: [facility] 7:19 AM [facility] REPOSITORY TYPE CODE TESTS RESULT OUT OF REFERENCE UNITS RANGE LAB GLU(LOINC) 82-115 mg/dL Low Glucose Level 78 LAB NA(LOINC) 136-145 mEq/L Low Sodium Level 134 LAB K(LOINC) 3.5-5.0 mEq/L Potassium High Level 5.5 LAB CL(LOINC) 98-110 mEq/L Chloride 100 LAB CO2(LOINC) 22-32 mEq/L CO2 27 LAB EBAL(LOINC 4.0-15.0 mEq/L ) Electrolyte Balance 7.0 LAB BUN(LOINC) 8.0-22.0 mg/dL BUN High 28.0 LAB CRE(LOINC) 0.50-1.20 mg/dL Creatinine High Lvl (s) 1.30 LAB BC(LOINC) 10.0-22.0 ratio BUN/Creatinine 21.5 Ratio LAB CA(LOINC) 8.4-10.1 mg/dL Low Calcium Lvl 7.6 Performed By: #### GFR, BMP #### [place] [address] .GFR Collected: 07/20/2018 Status: F Source: [facility] 7:19 AM [facility] REPOSITORY TYPE CODE TESTS RESULT OUT OF REFERENCE UNITS RANGE LAB GFRAA(LOINC ml/min/1.73 ) sqm GFR 48 Romanian Result Comment: GFR Population mean for , Non- Americans Ages 20-29 = 116 mL/min/1.73 sq.m. Ages 30-39 = 107 mL/min/1.73 sq.m. Ages 40-49 = 99 mL/min/1.73 sq.m. Ages 50-59 = 93 mL/min/1.73 sq.m. Ages 60-69 = 85 mL/min/1.73 sq.m. Ages 70+ = 75 mL/min/1.73 sq.m. Chronic Kidney Disease: Less than 60 mL/min/1.73 square meters End Stage Renal Disease: Less than 15 mL/min/1.73 square meters LAB GFRNO(LOINC) ml/min/1.73sqm GFR Non- 39 Result Comment: GFR Population mean for , Non- Americans Ages 20-29 = 116 mL/min/1.73 sq.m. Ages 30-39 = 107 mL/min/1.73 sq.m. Ages 40-49 = 99 mL/min/1.73 sq.m. Ages 50-59 = 93 mL/min/1.73 sq.m. Ages 60-69 = 85 mL/min/1.73 sq.m. Ages 70+ = 75 mL/min/1.73 sq.m. Chronic Kidney Disease: Less than 60 mL/min/1.73 square meters End Stage Renal Disease: Less than 15 mL/min/1.73 square meters Performed By: #### GFR, BMP #### [place] [address] BMP Collected: 07/19/2018 Status: F Source: [facility] 7:18 AM [facility] REPOSITORY TYPE CODE TESTS RESULT OUT OF REFERENCE UNITS RANGE LAB GLU(LOINC) 82-115 mg/dL Low Glucose Level 80 LAB NA(LOINC) 136-145 mEq/L Low Sodium Level 132 LAB K(LOINC) 3.5-5.0 mEq/L Potassium High Level 5.1 LAB CL(LOINC) 98-110 mEq/L Low Chloride 97 LAB CO2(LOINC) 22-32 mEq/L CO2 28 LAB EBAL(LOINC 4.0-15.0 mEq/L ) Electrolyte Balance 7.0 LAB BUN(LOINC) 8.0-22.0 mg/dL BUN High 33.0 LAB CRE(LOINC) 0.50-1.20 mg/dL Creatinine High Lvl (s) 1.35 LAB BC(LOINC) 10.0-22.0 ratio High BUN/Creatinine 24.4 Ratio LAB CA(LOINC) 8.4-10.1 mg/dL Low Calcium Lvl 7.4 Performed By: #### BMP, GFR #### [address] [address] .GFR Collected: 07/19/2018 Status: F Source: [facility] 7:18 AM [facility] REPOSITORY TYPE CODE TESTS RESULT OUT OF REFERENCE UNITS RANGE LAB GFRAA(LOINC ml/min/1.73 ) sqm GFR 46 Romanian Result Comment: GFR Population mean for , Non- Americans Ages 20-29 = 116 mL/min/1.73 sq.m. Ages 30-39 = 107 mL/min/1.73 sq.m. Ages 40-49 = 99 mL/min/1.73 sq.m. Ages 50-59 = 93 mL/min/1.73 sq.m. Ages 60-69 = 85 mL/min/1.73 sq.m. Ages 70+ = 75 mL/min/1.73 sq.m. Chronic Kidney Disease: Less than 60 mL/min/1.73 square meters End Stage Renal Disease: Less than 15 mL/min/1.73 square meters LAB GFRNO(LOINC) ml/min/1.73sqm GFR Non- 38 Result Comment: GFR Population mean for , Non- Americans Ages 20-29 = 116 mL/min/1.73 sq.m. Ages 30-39 = 107 mL/min/1.73 sq.m. Ages 40-49 = 99 mL/min/1.73 sq.m. Ages 50-59 = 93 mL/min/1.73 sq.m. Ages 60-69 = 85 mL/min/1.73 sq.m. Ages 70+ = 75 mL/min/1.73 sq.m. Chronic Kidney Disease: Less than 60 mL/min/1.73 square meters End Stage Renal Disease: Less than 15 mL/min/1.73 square meters Performed By: #### BMP, GFR #### [address] [address] BMP Collected: 07/18/2018 Status: F Source: [facility] 6:30 AM [facility] REPOSITORY TYPE CODE TESTS RESULT OUT OF REFERENCE UNITS RANGE LAB GLU(LOINC) 82-115 mg/dL Low Glucose Level 80 LAB NA(LOINC) 136-145 mEq/L Low Sodium Level 129 LAB K(LOINC) 3.5-5.0 mEq/L High Potassium Level 5.3 Result Comment: Specimen slightly hemolyzed. Results may be falsely elevated. LAB CL(LOINC) 98-110 mEq/L Chloride Low 97 LAB CO2(LOINC) 22-32 mEq/L CO2 25 LAB EBAL(LOINC) 4.0-15.0 mEq/L Electrolyte Balance 7.0 LAB BUN(LOINC) 8.0-22.0 mg/dL BUN High 36.0 LAB CRE(LOINC) 0.50-1.20 mg/dL Creatinine Lvl High (s) 1.48 LAB BC(LOINC) 10.0-22.0 ratio BUN/Creatinine High Ratio 24.3 LAB CA(LOINC) 8.4-10.1 mg/dL Calcium Lvl Low 7.4 Performed By: #### BMP, GFR #### [place] [address] .GFR Collected: 07/18/2018 Status: F Source: [facility] 6:30 AM [facility] REPOSITORY TYPE CODE TESTS RESULT OUT OF REFERENCE UNITS RANGE LAB GFRAA(LOINC ml/min/1.73 ) sqm GFR 41 Romanian Result Comment: GFR Population mean for , Non- Americans Ages 20-29 = 116 mL/min/1.73 sq.m. Ages 30-39 = 107 mL/min/1.73 sq.m. Ages 40-49 = 99 mL/min/1.73 sq.m. Ages 50-59 = 93 mL/min/1.73 sq.m. Ages 60-69 = 85 mL/min/1.73 sq.m. Ages 70+ = 75 mL/min/1.73 sq.m. Chronic Kidney Disease: Less than 60 mL/min/1.73 square meters End Stage Renal Disease: Less than 15 mL/min/1.73 square meters LAB GFRNO(LOINC) ml/min/1.73sqm GFR Non- 34 Result Comment: GFR Population mean for , Non- Americans Ages 20-29 = 116 mL/min/1.73 sq.m. Ages 30-39 = 107 mL/min/1.73 sq.m. Ages 40-49 = 99 mL/min/1.73 sq.m. Ages 50-59 = 93 mL/min/1.73 sq.m. Ages 60-69 = 85 mL/min/1.73 sq.m. Ages 70+ = 75 mL/min/1.73 sq.m. Chronic Kidney Disease: Less than 60 mL/min/1.73 square meters End Stage Renal Disease: Less than 15 mL/min/1.73 square meters Performed By: #### BMP, GFR #### [address] [address] CBC Collected: 07/17/2018 Status: F Source: [facility] 7:22 AM [facility] REPOSITORY TYPE CODE TESTS RESULT OUT OF REFERENCE UNITS RANGE LAB WBC(LOINC) 4.50-10.80 10 3/mcL WBC 9.70 LAB RBCCT(LOINC 4.10-5.30 10 6/mcL ) Low RBC 3.15 LAB HGB(LOINC) 12.0-16.0 G/dL Low Hgb 8.7 LAB HCT(LOINC) 34.0-46.0 % Low Hct 27.3 LAB MCV(LOINC) 80.0-99.0 fL MCV 86.7 LAB MCH(LOINC) 27.0-33.0 pg MCH 27.6 LAB MCHC(LOINC) 32.0-36.0 G/dL Low MCHC 31.8 LAB RDW(LOINC) 11.5-15.5 % High RDW 18.4 LAB PLT(LOINC) 150-450 10 3/mcL Platelet 332 LAB MPV(LOINC) 6.6-10.5 fL MPV 7.2 Performed By: #### MORPH, GFR, DIFF, CBC, BMP #### [address] [address] BMP Collected: 07/17/2018 Status: F Source: [facility] 7:22 AM [facility] REPOSITORY TYPE CODE TESTS RESULT OUT OF REFERENCE UNITS RANGE LAB GLU(LOINC) 82-115 mg/dL Low Glucose Level 76 LAB NA(LOINC) 136-145 mEq/L Low Sodium Level 131 LAB K(LOINC) 3.5-5.0 mEq/L Potassium High Level 5.2 LAB CL(LOINC) 98-110 mEq/L Low Chloride 95 LAB CO2(LOINC) 22-32 mEq/L CO2 29 LAB EBAL(LOINC 4.0-15.0 mEq/L ) Electrolyte Balance 7.0 LAB BUN(LOINC) 8.0-22.0 mg/dL BUN High 33.0 LAB CRE(LOINC) 0.50-1.20 mg/dL Creatinine High Lvl (s) 1.54 LAB BC(LOINC) 10.0-22.0 ratio BUN/Creatinine 21.4 Ratio LAB CA(LOINC) 8.4-10.1 mg/dL Low Calcium Lvl 7.3 Performed By: #### MORPH, GFR, DIFF, CBC, BMP #### [place] [address] .GFR Collected: 07/17/2018 Status: F Source: [facility] 7:22 AM [facility] REPOSITORY TYPE CODE TESTS RESULT OUT OF REFERENCE UNITS RANGE LAB GFRAA(LOINC ml/min/1.73 ) sqm GFR 39 Romanian Result Comment: GFR Population mean for , Non- Americans Ages 20-29 = 116 mL/min/1.73 sq.m. Ages 30-39 = 107 mL/min/1.73 sq.m. Ages 40-49 = 99 mL/min/1.73 sq.m. Ages 50-59 = 93 mL/min/1.73 sq.m. Ages 60-69 = 85 mL/min/1.73 sq.m. Ages 70+ = 75 mL/min/1.73 sq.m. Chronic Kidney Disease: Less than 60 mL/min/1.73 square meters End Stage Renal Disease: Less than 15 mL/min/1.73 square meters LAB GFRNO(LOINC) ml/min/1.73sqm GFR Non- 32 Result Comment: GFR Population mean for , Non- Americans Ages 20-29 = 116 mL/min/1.73 sq.m. Ages 30-39 = 107 mL/min/1.73 sq.m. Ages 40-49 = 99 mL/min/1.73 sq.m. Ages 50-59 = 93 mL/min/1.73 sq.m. Ages 60-69 = 85 mL/min/1.73 sq.m. Ages 70+ = 75 mL/min/1.73 sq.m. Chronic Kidney Disease: Less than 60 mL/min/1.73 square meters End Stage Renal Disease: Less than 15 mL/min/1.73 square meters Performed By: #### MORPH, GFR, DIFF, CBC, BMP #### [address] [address] .MANUAL DIFF Collected: 07/17/2018 Status: F Source: [facility] 7:22 AM [facility] REPOSITORY TYPE CODE TESTS RESULT OUT OF REFERENCE UNITS RANGE LAB LIMIT(LOIN C) Cells Counted 100 LAB NEUM(LOINC 50.0-75.0 % ) High Neutrophil %, 81.0 Manual LAB LYMM(LOINC 20.0-40.0 % ) Low Lymphocyte %, 14.0 Manual LAB MONM(LOINC 2.0-13.0 % ) Monocyte %, Manual 2.0 LAB EOM(LOINC) 0.0-6.0 % Eosinophil %, 3.0 Manual LAB BASM(LOINC 0.0-2.5 % ) Basophil %, Manual 0.0 LAB ANEUM(LOIN 2.25-8.10 10 3/mcL C) Neutrophil, Abs 7.86 Manual LAB ABLYMM(MONI 0.90-4.32 10 3/mcL NC) Lymphocyte, Abs 1.36 Manual LAB AMONM(LOIN 0.09-1.40 10 3/mcL C) Monocyte, Abs 0.19 Manual LAB AEOSM(LOIN 0.00-0.65 10 3/mcL C) Eosinophil, Abs 0.29 Manual LAB ABASM(LOIN 0.00-0.27 10 3/mcL C) Basophil, Abs 0.00 Manual Performed By: #### MORPH, GFR, DIFF, CBC, BMP #### [address] [address] .MORPH Collected: 07/17/2018 Status: F Source: [facility] 7:22 AM [facility] REPOSITORY TYPE CODE TESTS RESULT OUT OF REFERENCE UNITS RANGE LAB PLTE(LOINC ) Platelet Estimate Normal LAB ANIS(LOINC ) Anisocytosis Slight Performed By: #### MORPH, GFR, DIFF, CBC, BMP #### [address] [address] CBC Collected: 07/16/2018 Status: F Source: [facility] 6:12 AM [facility] REPOSITORY TYPE CODE TESTS RESULT OUT OF REFERENCE UNITS RANGE LAB WBC(LOINC) 4.50-10.80 10 3/mcL High WBC 11.40 LAB RBCCT(LOINC 4.10-5.30 10 6/mcL ) Low RBC 3.69 LAB HGB(LOINC) 12.0-16.0 G/dL Low Hgb 10.1 LAB HCT(LOINC) 34.0-46.0 % Low Hct 32.5 LAB MCV(LOINC) 80.0-99.0 fL MCV 87.9 LAB MCH(LOINC) 27.0-33.0 pg MCH 27.4 LAB MCHC(LOINC) 32.0-36.0 G/dL Low MCHC 31.1 LAB RDW(LOINC) 11.5-15.5 % High RDW 18.8 LAB PLT(LOINC) 150-450 10 3/mcL Platelet 365 LAB MPV(LOINC) 6.6-10.5 fL MPV 7.4 Performed By: #### GFR, ANEU, BMP, ADIFF, CBC #### [place] [id number] [place] [address] .AUTO DIFF Collected: 07/16/2018 Status: F Source: [facility] 6:12 AM [facility] REPOSITORY TYPE CODE TESTS RESULT OUT OF REFERENCE UNITS RANGE LAB CONSTANTINE(LOINC) 50.0-75.0 % Neutrophil % 73.7 LAB LYM(LOINC) 20.0-40.0 % Low Lymphocyte % 17.4 LAB MON(LOINC) 2.0-13.0 % Monocyte % 6.2 LAB EO(LOINC) 0.0-6.0 % Eosinophil % 2.2 LAB BAS(LOINC) 0.0-2.5 % Basophil % 0.5 LAB ABLYM(LOIN 0.90-4.32 10 3/mcL C) Lymphocyte, 2.00 Absolute LAB ERNIE(LOINC 0.09-1.40 10 3/mcL ) Monocyte, 0.70 Absolute LAB AEOS(LOINC 0.00-0.65 10 3/mcL ) Eosinophil, 0.30 Absolute LAB ABAS(LOINC 0.00-0.27 10 3/mcL ) Basophil, 0.10 Absolute Performed By: #### GFR, ANEU, BMP, ADIFF, CBC #### [address] [address] .NEUABS Collected: 07/16/2018 Status: F Source: [facility] 6:12 AM [facility] REPOSITORY TYPE CODE TESTS RESULT OUT OF REFERENCE UNITS RANGE LAB ANEU(LOINC) 2.25-8.10 10 3/mcL High Neutrophil, 8.40 Absolute Performed By: #### GFR, ANEU, BMP, ADIFF, CBC #### [place] [address] BMP Collected: 07/16/2018 Status: F Source: [facility] 6:12 AM [facility] REPOSITORY TYPE CODE TESTS RESULT OUT OF REFERENCE UNITS RANGE LAB GLU(LOINC) 82-115 mg/dL Glucose Level 90 LAB NA(LOINC) 136-145 mEq/L Low Sodium Level 132 LAB K(LOINC) 3.5-5.0 mEq/L Potassium High Level 5.3 LAB CL(LOINC) 98-110 mEq/L Chloride 98 LAB CO2(LOINC) 22-32 mEq/L CO2 25 LAB EBAL(LOINC 4.0-15.0 mEq/L ) Electrolyte Balance 9.0 LAB BUN(LOINC) 8.0-22.0 mg/dL BUN High 29.0 LAB CRE(LOINC) 0.50-1.20 mg/dL Creatinine High Lvl (s) 1.21 LAB BC(LOINC) 10.0-22.0 ratio High BUN/Creatinine 24.0 Ratio LAB CA(LOINC) 8.4-10.1 mg/dL Low Calcium Lvl 7.3 Performed By: #### GFR, ANEU, BMP, ADIFF, CBC #### [place] [address] .GFR Collected: 07/16/2018 Status: F Source: [facility] 6:12 AM [facility] REPOSITORY TYPE CODE TESTS RESULT OUT OF REFERENCE UNITS RANGE LAB GFRAA(LOINC ml/min/1.73 ) sqm GFR 52 Romanian Result Comment: GFR Population mean for , Non- Americans Ages 20-29 = 116 mL/min/1.73 sq.m. Ages 30-39 = 107 mL/min/1.73 sq.m. Ages 40-49 = 99 mL/min/1.73 sq.m. Ages 50-59 = 93 mL/min/1.73 sq.m. Ages 60-69 = 85 mL/min/1.73 sq.m. Ages 70+ = 75 mL/min/1.73 sq.m. Chronic Kidney Disease: Less than 60 mL/min/1.73 square meters End Stage Renal Disease: Less than 15 mL/min/1.73 square meters LAB GFRNO(LOINC) ml/min/1.73sqm GFR Non- 43 Result Comment: GFR Population mean for , Non- Americans Ages 20-29 = 116 mL/min/1.73 sq.m. Ages 30-39 = 107 mL/min/1.73 sq.m. Ages 40-49 = 99 mL/min/1.73 sq.m. Ages 50-59 = 93 mL/min/1.73 sq.m. Ages 60-69 = 85 mL/min/1.73 sq.m. Ages 70+ = 75 mL/min/1.73 sq.m. Chronic Kidney Disease: Less than 60 mL/min/1.73 square meters End Stage Renal Disease: Less than 15 mL/min/1.73 square meters Performed By: #### GFR, ANEU, BMP, ADIFF, CBC #### [address] [address] TROPI Collected: 07/15/2018 Status: F Source: [facility] 10:39 PM [facility] REPOSITORY TYPE CODE TESTS RESULT OUT OF REFERENCE UNITS RANGE LAB TROPI(LOINC 0.000-0.040 ng/mL ) Troponin I <0.015 Result Comment: Troponin I reference ranges (07/08/14): 0.00-0.040 ng/mL Negative and non-diagnostic. >0.040 ng/mL Consistent with cardiac damage, increased clinical risk and possibility of myocardial infarction. Serial measurements, a rise & fall in test results, clinical history, appropriate symptoms and/or ECG changes may help assess possibility of CO. *Other non-acute coronary syndrome conditions such as CHF, myocarditis, pulmonary emboli, sepsis and cardiac surgery could result in myocardial damage and increased troponin levels. Performed By: #### TROPI #### [address] [address] TROPI Collected: 07/15/2018 Status: F Source: [facility] 10:27 AM [facility] REPOSITORY TYPE CODE TESTS RESULT OUT OF REFERENCE UNITS RANGE LAB TROPI(LOINC 0.000-0.040 ng/mL ) Troponin I <0.015 Result Comment: Troponin I reference ranges (07/08/14): 0.00-0.040 ng/mL Negative and non-diagnostic. >0.040 ng/mL Consistent with cardiac damage, increased clinical risk and possibility of myocardial infarction. Serial measurements, a rise & fall in test results, clinical history, appropriate symptoms and/or ECG changes may help assess possibility of CO. *Other non-acute coronary syndrome conditions such as CHF, myocarditis, pulmonary emboli, sepsis and cardiac surgery could result in myocardial damage and increased troponin levels. Performed By: #### TROPI #### [place] [address] CBC Collected: 07/13/2018 Status: F Source: [facility] 6:02 [facility] TYPE CODE TESTS RESULT OUT OF REFERENCE UNITS RANGE LAB WBC(LOINC) 4.50-10.80 10 3/mcL High WBC 12.80 LAB RBCCT(LOINC 4.10-5.30 10 6/mcL ) Low RBC 3.14 LAB HGB(LOINC) 12.0-16.0 G/dL Low Hgb 8.6 LAB HCT(LOINC) 34.0-46.0 % Low Hct 26.9 LAB MCV(LOINC) 80.0-99.0 fL MCV 85.6 LAB MCH(LOINC) 27.0-33.0 pg MCH 27.4 LAB MCHC(LOINC) 32.0-36.0 G/dL MCHC 32.1 LAB RDW(LOINC) 11.5-15.5 % High RDW 18.1 LAB PLT(LOINC) 150-450 10 3/mcL Platelet 280 LAB MPV(LOINC) 6.6-10.5 fL MPV 7.8 Performed By: #### ANEU, GFR, ADIFF, BMP, CBC #### [address] [address] .AUTO DIFF Collected: 07/13/2018 Status: F Source: [facility] 6:02 [facility] TYPE CODE TESTS RESULT OUT OF REFERENCE UNITS RANGE LAB CONSTANTINE(LOINC) 50.0-75.0 % High Neutrophil % 79.2 LAB LYM(LOINC) 20.0-40.0 % Low Lymphocyte % 12.2 LAB MON(LOINC) 2.0-13.0 % Monocyte % 5.4 LAB EO(LOINC) 0.0-6.0 % Eosinophil % 2.8 LAB BAS(LOINC) 0.0-2.5 % Basophil % 0.4 LAB ABLYM(LOIN 0.90-4.32 10 3/mcL C) Lymphocyte, 1.60 Absolute LAB ERNIE(LOINC 0.09-1.40 10 3/mcL ) Monocyte, 0.70 Absolute LAB AEOS(LOINC 0.00-0.65 10 3/mcL ) Eosinophil, 0.40 Absolute LAB ABAS(LOINC 0.00-0.27 10 3/mcL ) Basophil, 0.00 Absolute Performed By: #### ANEU, GFR, ADIFF, BMP, CBC #### [place] [address] .NEUABS Collected: 07/13/2018 Status: F Source: [facility] 6:02 AM [facility] REPOSITORY TYPE CODE TESTS RESULT OUT OF REFERENCE UNITS RANGE LAB ANEU(LOINC) 2.25-8.10 10 3/mcL High Neutrophil, 10.20 Absolute Performed By: #### ANEU, GFR, ADIFF, BMP, CBC #### [place] [address] BMP Collected: 07/13/2018 Status: F Source: [facility] 6:02 [facility] EMERGENCY [facility]PART[facility] REPOSITORY TYPE CODE TESTS RESULT OUT OF REFERENCE UNITS RANGE LAB GLU(LOINC) 82-115 mg/dL Low Glucose Level 80 LAB NA(LOINC) 136-145 mEq/L Low Sodium Level 133 LAB K(LOINC) 3.5-5.0 mEq/L Potassium Level 4.4 LAB CL(LOINC) 98-110 mEq/L Chloride 98 LAB CO2(LOINC) 22-32 mEq/L CO2 27 LAB EBAL(LOINC 4.0-15.0 mEq/L ) Electrolyte Balance 8.0 LAB BUN(LOINC) 8.0-22.0 mg/dL BUN High 35.0 LAB CRE(LOINC) 0.50-1.20 mg/dL Creatinine Lvl (s) 1.20 LAB BC(LOINC) 10.0-22.0 ratio High BUN/Creatinine 29.2 Ratio LAB CA(LOINC) 8.4-10.1 mg/dL Low Calcium Lvl 7.1 Performed By: #### REJI, GFR, ADIFF, BMP, CBC #### [address] [address] .GFR Collected: 07/13/2018 Status: F Source: [facility] 6:02 AM [facility] REPOSITORY TYPE CODE TESTS RESULT OUT OF REFERENCE UNITS RANGE LAB GFRAA(LOINC ml/min/1.73 ) sqm GFR 52 Romanian Result Comment: GFR Population mean for , Non- Americans Ages 20-29 = 116 mL/min/1.73 sq.m. Ages 30-39 = 107 mL/min/1.73 sq.m. Ages 40-49 = 99 mL/min/1.73 sq.m. Ages 50-59 = 93 mL/min/1.73 sq.m. Ages 60-69 = 85 mL/min/1.73 sq.m. Ages 70+ = 75 mL/min/1.73 sq.m. Chronic Kidney Disease: Less than 60 mL/min/1.73 square meters End Stage Renal Disease: Less than 15 mL/min/1.73 square meters LAB GFRNO(LOINC) ml/min/1.73sqm GFR Non- 43 Result Comment: GFR Population mean for , Non- Americans Ages 20-29 = 116 mL/min/1.73 sq.m. Ages 30-39 = 107 mL/min/1.73 sq.m. Ages 40-49 = 99 mL/min/1.73 sq.m. Ages 50-59 = 93 mL/min/1.73 sq.m. Ages 60-69 = 85 mL/min/1.73 sq.m. Ages 70+ = 75 mL/min/1.73 sq.m. Chronic Kidney Disease: Less than 60 mL/min/1.73 square meters End Stage Renal Disease: Less than 15 mL/min/1.73 square meters Performed By: #### ANEU, GFR, ADIFF, BMP, CBC #### [address] [address] XR TIBIA/FIBULA 2 VIEWS Observed: 07/12/2018 Status: F Source: [facility] 2:20 [facility] REPOSITORY ORIGINAL XR TIBIA/FIBULA 2 VIEWS RIGHT CLINICAL STATEMENT: infection. COMPARISON: 04/20/2018 FINDINGS: There is pulmonary artery plasty and there is distal fibular plate and screw fixation hardware. Screw holes from previous plate and screw fixation hardware are visible in the tibia and there i s evidence of a remote healed tibial fracture. Bones are demineralized. No acute fracture is identified. No suspicious periosteal reaction is visible. Phleboliths are visible in the soft tissues. There is no soft tissue gas. IMPRESSION: No soft tissue gas or bone erosion. Consider further evaluation with nuclear medicine bone scan if there is concern for osteomyelitis. Interpreted By: Cruz Whitten Preliminary Report By: Cruz Whitten Electronically Signed By: Cruz Whitten Dictated Date: 07/12/2018 4:52:16 PM Prelim Date: 07/12/2018 4:52:16 PM Sign Date: 07/12/2018 4:53:43 PM Observed: 07/12/2018 Status: F Source: [facility] 11:07 [facility] EMERGENCY DEPARTMENT REPOSITORY . MICRO - Microbiology PROCEDURE: Culture Wound Deep Aerobe/Anaerobe w Gram Stain [*1] SOURCE: Wound (deep) BODY SITE: Leg R COLLECTED DATE/TIME: 07/12/2018 11:07 EDT RECEIVED DATE/TIME: 07/12/2018 11:51 EDT START DATE/TIME: 07/12/2018 11:52 EDT FREE TEXT SOURCE: FINAL REPORTS Final Report [] Verified Date/Time/Personnel: 07/16/2018 13:21 EDT Light Non Fermentering Gram Negative Rods Light Staphylococcus aureus Light Gram Negative Rods Light Non Fermentering Gram Negative Rods #2 Light Gram Negative Rods #2 Due to the presence of numerous mixed bacteria, sensitivity testing on individual isolates is not routinely performed. Plates will be held 48 hours. No anaerobes isolated at 96 hours. PRELIMINARY REPORTS Preliminary Report [] Verified Date/Time/Personnel: 07/15/2018 08:11 EDT Light Non Fermentering Gram Negative Rods Light Staphylococcus aureus Light Gram Negative Rods Light Non Fermentering Gram Negative Rods #2 Light Gram Negative Rods #2 Due to the presence of numerous mixed bacteria, sensitivity testing on individual isolates is not routinely performed. Plates will be held 48 hours. Preliminary Report [] Verified Date/Time/Personnel: 07/14/2018 07:47 EDT Light Non Fermentering Gram Negative Rods Light Staphylococcus aureus Mixed isolates present. Final report to follow. Preliminary Report [] Verified Date/Time/Personnel: 07/13/2018 13:02 EDT Culture results pending. STAINS GS [] Verified Date/Time/Personnel: 07/12/2018 13:41 EDT Rare Polymorphonuclear cells Rare Mononuclear cells Rare Gram Negative Rods Performing Locations *1: This test was performed at: [address], [address] [place] [address] Performed By: #### CWDP #### [place] [address] CBC Collected: 07/12/2018 Status: F Source: [facility] 5:22 AM [facility] REPOSITORY TYPE CODE TESTS RESULT OUT OF REFERENCE UNITS RANGE LAB WBC(LOINC) 4.50-10.80 10 3/mcL High WBC 15.80 LAB RBCCT(LOINC 4.10-5.30 10 6/mcL ) Low RBC 3.27 LAB HGB(LOINC) 12.0-16.0 G/dL Low Hgb 8.9 LAB HCT(LOINC) 34.0-46.0 % Low Hct 28.0 LAB MCV(LOINC) 80.0-99.0 fL MCV 85.8 LAB MCH(LOINC) 27.0-33.0 pg MCH 27.3 LAB MCHC(LOINC) 32.0-36.0 G/dL Low MCHC 31.8 LAB RDW(LOINC) 11.5-15.5 % High RDW 18.4 LAB PLT(LOINC) 150-450 10 3/mcL Platelet 271 LAB MPV(LOINC) 6.6-10.5 fL MPV 7.6 Performed By: #### T4, CBC, MG, T3, CMP, GFR, TSH, ANEU, PRALB, PHOS, ADIFF, FES, B12 #### [place] [address] .AUTO DIFF Collected: 07/12/2018 Status: F Source: [facility] 5:22 AM [facility] REPOSITORY TYPE CODE TESTS RESULT OUT OF REFERENCE UNITS RANGE LAB CONSTANTINE(LOINC) 50.0-75.0 % High Neutrophil % 84.3 LAB LYM(LOINC) 20.0-40.0 % Low Lymphocyte % 8.8 LAB MON(LOINC) 2.0-13.0 % Monocyte % 5.6 LAB EO(LOINC) 0.0-6.0 % Eosinophil % 1.1 LAB BAS(LOINC) 0.0-2.5 % Basophil % 0.2 LAB ABLYM(LOIN 0.90-4.32 10 3/mcL C) Lymphocyte, 1.40 Absolute LAB ERNIE(LOINC 0.09-1.40 10 3/mcL ) Monocyte, 0.90 Absolute LAB AEOS(LOINC 0.00-0.65 10 3/mcL ) Eosinophil, 0.20 Absolute LAB ABAS(LOINC 0.00-0.27 10 3/mcL ) Basophil, 0.00 Absolute Performed By: #### T4, CBC, MG, T3, CMP, GFR, TSH, ANEU, PRALB, PHOS, ADIFF, FES, B12 #### [place] [address] .NEUABS Collected: 07/12/2018 Status: F Source: [facility] 5:22 AM [facility] REPOSITORY TYPE CODE TESTS RESULT OUT OF REFERENCE UNITS RANGE LAB ANEU(LOINC) 2.25-8.10 10 3/mcL High Neutrophil, 13.30 Absolute Performed By: #### T4, CBC, MG, T3, CMP, GFR, TSH, ANEU, PRALB, PHOS, ADIFF, FES, B12 #### [place] [address] MG Collected: 07/12/2018 Status: F Source: [facility] 5:22 AM [facility] REPOSITORY TYPE CODE TESTS RESULT OUT OF REFERENCE UNITS RANGE LAB MG(LOINC) 1.6-2.4 mg/dL Magnesium Lvl 2.1 Performed By: #### T4, CBC, MG, T3, CMP, GFR, TSH, ANEU, PRALB, PHOS, ADIFF, FES, B12 #### [place] [address] PHOS Collected: 07/12/2018 Status: F Source: [facility] 5:22 AM [facility] REPOSITORY TYPE CODE TESTS RESULT OUT OF REFERENCE UNITS RANGE LAB PHOS(LOINC 2.5-4.5 mg/dL ) Phosphorus 2.5 Performed By: #### T4, CBC, MG, T3, CMP, GFR, TSH, ANEU, PRALB, PHOS, ADIFF, FES, B12 #### [place] [address] TSH Collected: 07/12/2018 Status: F Source: [facility] 5:22 AM [facility] REPOSITORY TYPE CODE TESTS RESULT OUT OF RANGE REFERENCE UNITS LAB TSH(LOINC) 0.360-3.740 mcIU/mL TSH 2.020 Result Comment: Please note as of 05/14/17 new pediatric reference intervals were added for this test. Performed By: #### T4, CBC, MG, T3, CMP, GFR, TSH, ANEU, PRALB, PHOS, ADIFF, FES, B12 #### [place] [address] T4 Collected: 07/12/2018 Status: F Source: [facility] 5:22 AM [facility] REPOSITORY TYPE CODE TESTS RESULT OUT OF RANGE REFERENCE UNITS LAB T4(LOINC) 4.7-11.4 mcg/dL Low T4 4.4 Result Comment: Please note as of 05/14/17 new pediatric reference intervals were added for this test. Performed By: #### T4, CBC, MG, T3, CMP, GFR, TSH, ANEU, PRALB, PHOS, ADIFF, FES, B12 #### [place] [address] FES Collected: 07/12/2018 Status: F Source: [facility] 5:22 AM [facility] REPOSITORY TYPE CODE TESTS RESULT OUT OF RANGE REFERENCE UNITS LAB FE(LOINC) 37-170 mcg/dL Low Iron 13 LAB IBC(LOINC) 250-500 mcg/dL Low TIBC 92 LAB FESAT(LOINC % ) Iron Sat 14 Performed By: #### T4, CBC, MG, T3, CMP, GFR, TSH, ANEU, PRALB, PHOS, ADIFF, FES, B12 #### [place] [address] CMP Collected: 07/12/2018 Status: F Source: [facility] 5:22 AM [facility] REPOSITORY TYPE CODE TESTS RESULT OUT OF REFERENCE UNITS RANGE LAB GLU(LOINC) 82-115 mg/dL Glucose Level 91 LAB NA(LOINC) 136-145 mEq/L Low Sodium Level 133 LAB K(LOINC) 3.5-5.0 mEq/L Potassium Level 4.0 LAB CL(LOINC) 98-110 mEq/L Chloride 99 LAB CO2(LOINC) 22-32 mEq/L CO2 28 LAB EBAL(LOINC 4.0-15.0 mEq/L ) Electrolyte Balance 6.0 LAB BUN(LOINC) 8.0-22.0 mg/dL BUN High 36.0 LAB CRE(LOINC) 0.50-1.20 mg/dL Creatinine High Lvl (s) 1.41 LAB BC(LOINC) 10.0-22.0 ratio High BUN/Creatinine 25.5 Ratio LAB CA(LOINC) 8.4-10.1 mg/dL Low Calcium Lvl 7.2 LAB PROT(LOINC 6.0-8.5 G/dL ) Total Protein 6.0 LAB ALB(LOINC) 3.2-4.8 G/dL Low Albumin Level 1.7 LAB GLB(LOINC) 1.5-3.8 G/dL Globulin High 4.3 LAB AG(LOINC) 0.9-1.6 ratio Low A/G Ratio 0.4 LAB BILT(LOINC 0.2-1.2 mg/dL ) Bili Total 0.5 LAB AP(LOINC) 38-126 U/L Alk Phos 118 LAB AST(LOINC) 8-34 U/L AST/SGOT 32 LAB ALT(LOINC) 10-49 U/L ALT/SGPT 17 Performed By: #### T4, CBC, MG, T3, CMP, GFR, TSH, ANEU, PRALB, PHOS, ADIFF, FES, B12 #### [place] [address] .GFR Collected: 07/12/2018 Status: F Source: [facility] 5:22 AM [facility] RE[facility] TYPE CODE TESTS RESULT OUT OF REFERENCE UNITS RANGE LAB GFRAA(LOINC ml/min/1.73 ) sqm GFR 43 Romanian Result Comment: GFR Population mean for , Non- Americans Ages 20-29 = 116 mL/min/1.73 sq.m. Ages 30-39 = 107 mL/min/1.73 sq.m. Ages 40-49 = 99 mL/min/1.73 sq.m. Ages 50-59 = 93 mL/min/1.73 sq.m. Ages 60-69 = 85 mL/min/1.73 sq.m. Ages 70+ = 75 mL/min/1.73 sq.m. Chronic Kidney Disease: Less than 60 mL/min/1.73 square meters End Stage Renal Disease: Less than 15 mL/min/1.73 square meters LAB GFRNO(LOINC) ml/min/1.73sqm GFR Non- 36 Result Comment: GFR Population mean for , Non- Americans Ages 20-29 = 116 mL/min/1.73 sq.m. Ages 30-39 = 107 mL/min/1.73 sq.m. Ages 40-49 = 99 mL/min/1.73 sq.m. Ages 50-59 = 93 mL/min/1.73 sq.m. Ages 60-69 = 85 mL/min/1.73 sq.m. Ages 70+ = 75 mL/min/1.73 sq.m. Chronic Kidney Disease: Less than 60 mL/min/1.73 square meters End Stage Renal Disease: Less than 15 mL/min/1.73 square meters Performed By: #### T4, CBC, MG, T3, CMP, GFR, TSH, ANEU, PRALB, PHOS, ADIFF, FES, B12 #### [address] [address] B12 Collected: 07/12/2018 Status: F Source: [facility] 5:22 AM [facility] REPOSITORY TYPE CODE TESTS RESULT OUT OF REFERENCE UNITS RANGE LAB B12(LOINC) 211-911 pg/mL High Vitamin B12 1089 Lvl Performed By: #### T4, CBC, MG, T3, CMP, GFR, TSH, ANEU, PRALB, PHOS, ADIFF, FES, B12 #### [address] [address] T3 Collected: 07/12/2018 Status: F Source: [facility] 5:22 AM [facility] REPOSITORY TYPE CODE TESTS RESULT OUT OF RANGE REFERENCE UNITS LAB T3(LOINC) 60-181 ng/dL Low Total T3 25 Result Comment: Please note ? as of 05/14/17 new pediatric reference intervals were added for this test. Performed By: #### T4, CBC, MG, T3, CMP, GFR, TSH, ANEU, PRALB, PHOS, ADIFF, FES, B12 #### [address] [address] PRALB Collected: 07/12/2018 Status: F Source: [facility] 5:22 AM [facility] REPOSITORY TYPE CODE TESTS RESULT OUT OF REFERENCE UNITS RANGE LAB PRALB(LOIN 18.0-38.0 mg/dL C) Low Prealbumin 5.1 Performed By: #### T4, CBC, MG, T3, CMP, GFR, TSH, ANEU, PRALB, PHOS, ADIFF, FES, B12 #### [place] [id number] [place] [address] XR CHEST 1 VIEW Observed: 07/12/2018 Status: F Source: [facility] 4:59 AM [facility] REPOSITORY ORIGINAL XR CHEST 1 VIEW portable upright 6:17 AM CLINICAL STATEMENT: Abnormal Breath Sounds COMPARISON: 07/03/2018 FINDINGS: Stable heart and mediastinum. Bilateral airspace opacities persist. No pleural effusion. IMPRESSION: Bilateral interstitial and airspace opacities suggestive of pulmonary edema, not significantly changed. Interpreted By: Shawn Wright MD Preliminary Report By: Shawn Wright MD Electronically Signed By: Shawn Wright MD Dictated Date: 07/12/2018 7:18:33 AM Prelim Date: 07/12/2018 7:18:33 AM Sign Date: 07/12/2018 7:19:10 AM UA Collected: 07/11/2018 Status: F Source: [facility] 6:40 PM [facility] REPOSITORY TYPE CODE TESTS RESULT OUT OF RANGE REFERENCE UNITS LAB SPCUA(MONI NC) UA Specimen Type Catheter LAB CLRUA(MONI NC) UA Color Yellow LAB APPUA(MONI Clear NC) UA Appear Unknown Cloudy LAB SGUA(LOIN 1.006-1.029 C) UA Spec Grav 1.015 LAB GLUA(LOIN Negative mg/dL C) UA Glucose Negative LAB BILUA(MONI Neg-Trace NC) UA Bili Negative LAB KETUA(MONI Neg-Trace mg/dL NC) UA Ketones Negative LAB BLDUA(MONI Neg-Trace NC) UA Blood Unknown Small LAB PHUA(LOIN 5.0 - 8.0 C) UA pH 6.5 LAB PROUA(MONI Negative mg/dL NC) UA Protein 30 LAB UROUA(MONI 0.2-1.0 E.U./dL NC) UA Urobilinogen 0.2 LAB NITUA(MONI Negative NC) UA Nitrite Negative LAB LEUUA(MONI Negative NC) UA Leuk Est Unknown Large Performed By: #### UAMIC, UA #### [place] [address] UAMIC Collected: 07/11/2018 Status: F Source: [facility] 6:40 PM [facility] REPOSITORY TYPE CODE TESTS RESULT OUT OF RANGE REFERENCE UNITS LAB RBCUA(LOIN 0-2 /hpf C) UA RBC Unknown 3-5 LAB WBCUA(LOIN 0-5 /hpf C) UA WBC Unknown LOADED LAB EPIUA(LOIN 0-20 /hpf C) UA Squam Epithelial 10-20 LAB TEPUA(LOIN /hpf C) UA Unknown Transitional 5-10 Epithelial LAB REPUA(LOIN /hpf C) UA Renal Epithelial 3-5 LAB MUCUA(LOIN /hpf C) UA Mucous 2+ LAB BACUA(LOIN Negative /hpf C) UA Bacteria Unknown Trace LAB FGRNC(LOIN /lpf C) UA Fine Unknown Granular Casts 0-2 LAB GLTUA(LOIN /hpf C) UA Glitter Unknown cells 3-5 Performed By: #### UAMIC, UA #### [place] [address] Observed: 07/11/2018 Status: F Source: [facility] 6:40 PM [facility] REPOSITORY . MICRO - Microbiology PROCEDURE: Urine Culture [*1] SOURCE: Urine, Clean Catch BODY SITE: COLLECTED DATE/TIME: 07/11/2018 18:40 EDT RECEIVED DATE/TIME: 07/11/2018 19:03 EDT START DATE/TIME: 07/11/2018 19:03 EDT FREE TEXT SOURCE: FINAL REPORTS Final Report [] Verified Date/Time/Personnel: 07/14/2018 10:15 EDT >100,000 organisms per mL Proteus mirabilis >100,000 organisms per mL Pseudomonas aeruginosa PRELIMINARY REPORTS Preliminary Report [] Verified Date/Time/Personnel: 07/13/2018 09:01 EDT >100,000 organisms per mL Gram Negative Rods Final identification and THEO to follow. >100,000 organisms per mL Non Fermentering Gram Negative Rods Final identification and THEO to follow. Preliminary Report [] Verified Date/Time/Personnel: 07/12/2018 15:51 EDT Culture results pending. SUSCEPTIBILITY RESULTS Proteus mirabilis Antibiotic THEO Dilutn THEO Interp Ampicillin >16 Resistant Cefazolin <=8 Susceptible Ciprofloxacin >4 Resistant Gentamicin <=4 Susceptible Levofloxacin 4 Intermediate Meropenem <=1 Susceptible Nitrofurantoin 64 Resistant Piperacillin/ <=16 Susceptible Tazobactam Trimethoprim/ >2/38 Resistant Sulfa Pseudomonas aeruginosa Antibiotic THEO Dilutn HTEO Interp Ceftazidime >16 Resistant Gentamicin 8 Intermediate Levofloxacin <=2 Susceptible Meropenem <=1 Susceptible Piperacillin/ >64 Resistant Tazobactam Tobramycin <=4 Susceptible Performing Locations *1: This test was performed at: [address] Performed By: #### CUR #### [place] [address] PRO Collected: 07/11/2018 Status: F Source: [facility] 5:31 AM [facility] REPOSITORY TYPE CODE TESTS RESULT OUT OF REFERENCE UNITS RANGE LAB PT(LOINC) 9.3-14.6 seconds Protime High 15.6 LAB INR(LOINC) 0.9-1.2 ratio PT High International 1.5 Ratio Result Comment: Standard Dose 2.0 - 3.0 High Dose 2.5 - 3.5 The recommended therapeutic range for oral anticoagulant therapy is: LOW RISK: Prophylaxis of venous thrombosis INR: 2.0 - 3.0 Treatment of pulmonary embolism 2.0 - 3.0 Prevention of systemic embolism 2.0 - 3.0 HIGH RISK: Mechanical prosthetic valves 2.5 - 3.5 Performed By: #### DIFF, CBC, MORPH, PRO #### [address] [address] #### GFR, BMP #### [place] [address] BMP Collected: 07/11/2018 Status: F Source: [facility] 5:31 AM [facility] REPOSITORY TYPE CODE TESTS RESULT OUT OF REFERENCE UNITS RANGE LAB GLU(LOINC) 83-110 mg/dL Low Glucose Level 78 LAB NA(LOINC) 136-145 mmol/L Low Sodium Level 134 LAB K(LOINC) 3.5-5.1 mmol/L Potassium Level 4.2 LAB CL(LOINC) 98-107 mmol/L Chloride 98 LAB CO2(LOINC) 23-31 mmol/L CO2 28 LAB EBAL(LOINC mEq/L ) Electrolyte Balance 8.0 LAB BUN(LOINC) 7-18 mg/dL BUN High 41 LAB CRE(LOINC) 0.55-1.02 mg/dL Creatinine High Lvl (s) 1.83 LAB BC(LOINC) 7-27 ratio BUN/Creatinine 22 Ratio LAB CA(LOINC) 8.4-10.2 mg/dL Low Calcium Lvl 7.9 Performed By: #### DIFF, CBC, MORPH, PRO #### [id number] [place], [place] [address] #### GFR, BMP #### [address] [address] .GFR Collected: 07/11/2018 Status: F Source: [facility] 5:31 AM [facility] REPOSITORY TYPE CODE TESTS RESULT OUT OF REFERENCE UNITS RANGE LAB GFRAA(LOINC ml/min/1.73 ) sqm GFR 32 Romanian Result Comment: GFR Population mean for , Non- Americans Ages 20-29 = 116 mL/min/1.73 sq.m. Ages 30-39 = 107 mL/min/1.73 sq.m. Ages 40-49 = 99 mL/min/1.73 sq.m. Ages 50-59 = 93 mL/min/1.73 sq.m. Ages 60-69 = 85 mL/min/1.73 sq.m. Ages 70+ = 75 mL/min/1.73 sq.m. Chronic Kidney Disease: Less than 60 mL/min/1.73 square meters End Stage Renal Disease: Less than 15 mL/min/1.73 square meters LAB GFRNO(LOINC) ml/min/1.73sqm GFR Non- 26 Result Comment: GFR Population mean for , Non- Americans Ages 20-29 = 116 mL/min/1.73 sq.m. Ages 30-39 = 107 mL/min/1.73 sq.m. Ages 40-49 = 99 mL/min/1.73 sq.m. Ages 50-59 = 93 mL/min/1.73 sq.m. Ages 60-69 = 85 mL/min/1.73 sq.m. Ages 70+ = 75 mL/min/1.73 sq.m. Chronic Kidney Disease: Less than 60 mL/min/1.73 square meters End Stage Renal Disease: Less than 15 mL/min/1.73 square meters Performed By: #### DIFF, CBC, MORPH, PRO #### [address] [address] #### GFR, BMP #### [address] [address] CBC Collected: 07/11/2018 Status: F Source: [facility] 5:31 AM [facility] REPOSITORY TYPE CODE TESTS RESULT OUT OF REFERENCE UNITS RANGE LAB WBC(LOINC) 4.60-10.80 10 3/mcL High WBC 17.00 LAB RBCCT(LOINC 4.20-5.40 10 6/mcL ) Low RBC 3.08 LAB HGB(LOINC) 12.0-16.0 G/dL Low Hgb 8.6 LAB HCT(LOINC) 37.0-47.0 % Low Hct 26.0 LAB MCV(LOINC) 80.0-94.0 fL MCV 84.4 LAB MCH(LOINC) 27.0-31.2 pg MCH 27.8 LAB MCHC(LOINC) 33.0-37.0 G/dL MCHC 33.0 LAB RDW(LOINC) 11.5-14.5 % High RDW 18.2 LAB PLT(LOINC) 130-400 10 3/mcL Platelet 315 LAB MPV(LOINC) 7.4-10.4 fL MPV 8.1 Performed By: #### DIFF, CBC, MORPH, PRO #### [address] [address] #### GFR, BMP #### [address] [address] .MANUAL DIFF Collected: 07/11/2018 Status: F Source: [facility] 5:31 AM [facility] REPOSITORY TYPE CODE TESTS RESULT OUT OF REFERENCE UNITS RANGE LAB NEUM(LOINC 37.0-80.0 % ) Neutrophil %, 73.0 Manual LAB LYMM(LOINC 10.0-50.0 % ) Low Lymphocyte %, 6.0 Manual LAB MONM(LOINC 1.7-13.0 % ) Low Monocyte %, Manual 1.0 LAB EOM(LOINC) 0.0-7.0 % Eosinophil %, 1.0 Manual LAB BASM(LOINC 0.0-2.5 % ) Basophil %, Manual 0.0 LAB BAND(LOINC 0.0-5.0 % ) Bands High 19.0 LAB ANEUM(LOIN 2.85-6.16 10 3/mcL C) High Neutrophil, Abs 15.60 Manual LAB ABLYMM(MONI 0.77-3.85 10 3/mcL NC) Lymphocyte, Abs 1.00 Manual LAB AMONM(LOIN 0.15-1.00 10 3/mcL C) Monocyte, Abs 0.20 Manual LAB AEOSM(LOIN 0.00-0.40 10 3/mcL C) Eosinophil, Abs 0.20 Manual LAB ABASM(LOIN 0.00-0.19 10 3/mcL C) Basophil, Abs 0.00 Manual Performed By: #### DIFF, CBC, MORPH, PRO #### [place] [address] #### GFR, BMP #### [place] [address] .MORPH Collected: 07/11/2018 Status: F Source: [facility] 5:31 AM [facility] REPOSITORY TYPE CODE TESTS RESULT OUT OF REFERENCE UNITS RANGE LAB PLTE(LOINC ) Platelet Estimate Normal LAB ANIS(LOINC ) Anisocytosis Slight LAB HYPC(LOINC ) Hypochrom Moderate LAB STMT(LOINC ) Stomatocytes Few LAB TGR(LOINC) Toxic Gran Moderate Performed By: #### DIFF, CBC, MORPH, PRO #### [address] [address] #### GFR, BMP #### [place] [address] PRO Collected: 07/10/2018 Status: F Source: [facility] 5:56 AM [facility] REPOSITORY Order Comment: ordered secondary to warfarin order TYPE CODE TESTS RESULT OUT OF REFERENCE UNITS RANGE LAB PT(LOINC) 9.3-14.6 seconds Protime High 28.4 LAB INR(LOINC) 0.9-1.2 ratio PT High International 2.8 Ratio Result Comment: Standard Dose 2.0 - 3.0 High Dose 2.5 - 3.5 The recommended therapeutic range for oral anticoagulant therapy is: LOW RISK: Prophylaxis of venous thrombosis INR: 2.0 - 3.0 Treatment of pulmonary embolism 2.0 - 3.0 Prevention of systemic embolism 2.0 - 3.0 HIGH RISK: Mechanical prosthetic valves 2.5 - 3.5 Performed By: #### PRO #### [facility] [address] [place], [place] [address] PRO Collected: 07/09/2018 Status: F Source: [facility] 6:03 AM [facility] REPOSITORY TYPE CODE TESTS RESULT OUT OF REFERENCE UNITS RANGE LAB PT(LOINC) 9.3-14.6 seconds Protime High 20.3 LAB INR(LOINC) 0.9-1.2 ratio PT High International 2.0 Ratio Result Comment: Standard Dose 2.0 - 3.0 High Dose 2.5 - 3.5 The recommended therapeutic range for oral anticoagulant therapy is: LOW RISK: Prophylaxis of venous thrombosis INR: 2.0 - 3.0 Treatment of pulmonary embolism 2.0 - 3.0 Prevention of systemic embolism 2.0 - 3.0 HIGH RISK: Mechanical prosthetic valves 2.5 - 3.5 Performed By: #### PRO #### [facility] [address] [place], [place] [address] BMP Collected: 07/09/2018 Status: F Source: [facility] 6:03 [facility] REPOSITORY TYPE CODE TESTS RESULT OUT OF REFERENCE UNITS RANGE LAB GLU(LOINC) 83-110 mg/dL Low Glucose Level 77 LAB NA(LOINC) 136-145 mmol/L Low Sodium Level 131 LAB K(LOINC) 3.5-5.1 mmol/L Potassium Level 4.5 LAB CL(LOINC) 98-107 mmol/L Low Chloride 96 LAB CO2(LOINC) 23-31 mmol/L CO2 26 LAB EBAL(LOINC mEq/L ) Electrolyte Balance 9.0 LAB BUN(LOINC) 7-18 mg/dL BUN High 41 LAB CRE(LOINC) 0.55-1.02 mg/dL Creatinine High Lvl (s) 1.81 LAB BC(LOINC) 7-27 ratio BUN/Creatinine 23 Ratio LAB CA(LOINC) 8.4-10.2 mg/dL Low Calcium Lvl 8.2 Performed By: #### GRETCHEN, GFR #### [address] [address] .GFR Collected: 07/09/2018 Status: F [facility] AM [facility] REPOSITORY TYPE CODE TESTS RESULT OUT OF REFERENCE UNITS RANGE LAB GFRAA(LOINC ml/min/1.73 ) sqm GFR 33 Romanian Result Comment: GFR Population mean for , Non- Americans Ages 20-29 = 116 mL/min/1.73 sq.m. Ages 30-39 = 107 mL/min/1.73 sq.m. Ages 40-49 = 99 mL/min/1.73 sq.m. Ages 50-59 = 93 mL/min/1.73 sq.m. Ages 60-69 = 85 mL/min/1.73 sq.m. Ages 70+ = 75 mL/min/1.73 sq.m. Chronic Kidney Disease: Less than 60 mL/min/1.73 square meters End Stage Renal Disease: Less than 15 mL/min/1.73 square meters LAB GFRNO(LOINC) ml/min/1.73sqm GFR Non- 27 Result Comment: GFR Population mean for , Non- Americans Ages 20-29 = 116 mL/min/1.73 sq.m. Ages 30-39 = 107 mL/min/1.73 sq.m. Ages 40-49 = 99 mL/min/1.73 sq.m. Ages 50-59 = 93 mL/min/1.73 sq.m. Ages 60-69 = 85 mL/min/1.73 sq.m. Ages 70+ = 75 mL/min/1.73 sq.m. Chronic Kidney Disease: Less than 60 mL/min/1.73 square meters End Stage Renal Disease: Less than 15 mL/min/1.73 square meters Performed By: #### GRETCHEN, GFR #### [address] [address] CBC Collected: 07/08/2018 Status: F Source: [facility] 8:43 AM [facility] REPOSITORY Order Comment: ordered secondary to warfarin order TYPE CODE TESTS RESULT OUT OF REFERENCE UNITS RANGE LAB WBC(LOINC) 4.60-10.80 10 3/mcL High WBC 19.60 LAB RBCCT(LOINC 4.20-5.40 10 6/mcL ) Low RBC 3.39 LAB HGB(LOINC) 12.0-16.0 G/dL Low Hgb 9.4 LAB HCT(LOINC) 37.0-47.0 % Low Hct 28.6 LAB MCV(LOINC) 80.0-94.0 fL MCV 84.2 LAB MCH(LOINC) 27.0-31.2 pg MCH 27.6 LAB MCHC(LOINC) 33.0-37.0 G/dL Low MCHC 32.7 LAB RDW(LOINC) 11.5-14.5 % High RDW 18.2 LAB PLT(LOINC) 130-400 10 3/mcL Platelet 332 LAB MPV(LOINC) 7.4-10.4 fL Low MPV 7.3 Performed By: #### CBC, DORA, ANEU #### [address] [address] .AUTO DIFF Collected: 07/08/2018 Status: F Source: [facility] 8:43 [facility] REPOSITORY TYPE CODE TESTS RESULT OUT OF REFERENCE UNITS RANGE LAB CONSTANTINE(LOINC) 37.0-80.0 % High Neutrophil % 89.0 LAB LYM(LOINC) 10.0-50.0 % Low Lymphocyte % 8.1 LAB MON(LOINC) 1.7-13.0 % Monocyte % 2.3 LAB EO(LOINC) 0.0-7.0 % Eosinophil % 0.3 LAB BAS(LOINC) 0.0-2.5 % Basophil % 0.3 LAB ABLYM(LOIN 0.77-3.85 10 3/mcL C) Lymphocyte, 1.60 Absolute LAB ERNIE(LOINC 0.15-1.00 10 3/mcL ) Monocyte, 0.50 Absolute LAB AEOS(LOINC 0.00-0.40 10 3/mcL ) Eosinophil, 0.10 Absolute LAB ABAS(LOINC 0.00-0.19 10 3/mcL ) Basophil, 0.10 Absolute Performed By: #### CBC, ADIFF, ANEU #### [address] [address] .NEUABS Collected: 07/08/2018 Status: F Source: [facility] 8:43 AM [facility] REPOSITORY TYPE CODE TESTS RESULT OUT OF REFERENCE UNITS RANGE LAB ANEU(LOINC) 2.85-6.16 10 3/mcL High Neutrophil, 17.40 Absolute Performed By: #### CBC, ADIFF, ANEU #### [address] [address] BMP Collected: 07/08/2018 Status: F Source: [facility] 6:38 AM [facility] REPOSITORY TYPE CODE TESTS RESULT OUT OF REFERENCE UNITS RANGE LAB GLU(LOINC) 83-110 mg/dL Low Glucose Level 81 LAB NA(LOINC) 136-145 mmol/L Low Sodium Level 133 LAB K(LOINC) 3.5-5.1 mmol/L Potassium Level 4.4 LAB CL(LOINC) 98-107 mmol/L Chloride 98 LAB CO2(LOINC) 23-31 mmol/L CO2 30 LAB EBAL(LOINC mEq/L ) Electrolyte Balance 5.0 LAB BUN(LOINC) 7-18 mg/dL BUN High 40 LAB CRE(LOINC) 0.55-1.02 mg/dL Creatinine High Lvl (s) 1.94 LAB BC(LOINC) 7-27 ratio BUN/Creatinine 21 Ratio LAB CA(LOINC) 8.4-10.2 mg/dL Low Calcium Lvl 8.3 Performed By: #### BMP, GFR #### [place] [address] .GFR Collected: 07/08/2018 Status: F Source: [facility] 6:38 AM [facility] REPOSITORY TYPE CODE TESTS RESULT OUT OF REFERENCE UNITS RANGE LAB GFRAA(LOINC ml/min/1.73 ) sqm GFR 30 Romanian Result Comment: GFR Population mean for , Non- Americans Ages 20-29 = 116 mL/min/1.73 sq.m. Ages 30-39 = 107 mL/min/1.73 sq.m. Ages 40-49 = 99 mL/min/1.73 sq.m. Ages 50-59 = 93 mL/min/1.73 sq.m. Ages 60-69 = 85 mL/min/1.73 sq.m. Ages 70+ = 75 mL/min/1.73 sq.m. Chronic Kidney Disease: Less than 60 mL/min/1.73 square meters End Stage Renal Disease: Less than 15 mL/min/1.73 square meters LAB GFRNO(LOINC) ml/min/1.73sqm GFR Non- 25 Result Comment: GFR Population mean for , Non- Americans Ages 20-29 = 116 mL/min/1.73 sq.m. Ages 30-39 = 107 mL/min/1.73 sq.m. Ages 40-49 = 99 mL/min/1.73 sq.m. Ages 50-59 = 93 mL/min/1.73 sq.m. Ages 60-69 = 85 mL/min/1.73 sq.m. Ages 70+ = 75 mL/min/1.73 sq.m. Chronic Kidney Disease: Less than 60 mL/min/1.73 square meters End Stage Renal Disease: Less than 15 mL/min/1.73 square meters Performed By: #### BMP, GFR #### [place] [address] PRO Collected: 07/08/2018 Status: F Source: [facility] 6:38 AM [facility] REPOSITORY TYPE CODE TESTS RESULT OUT OF REFERENCE UNITS RANGE LAB PT(LOINC) 9.3-14.6 seconds Protime High 21.6 LAB INR(LOINC) 0.9-1.2 ratio PT High International 2.1 Ratio Result Comment: Standard Dose 2.0 - 3.0 High Dose 2.5 - 3.5 The recommended therapeutic range for oral anticoagulant therapy is: LOW RISK: Prophylaxis of venous thrombosis INR: 2.0 - 3.0 Treatment of pulmonary embolism 2.0 - 3.0 Prevention of systemic embolism 2.0 - 3.0 HIGH RISK: Mechanical prosthetic valves 2.5 - 3.5 Performed By: #### PRO #### [address] [address] BMP Collected: 07/07/2018 Status: F Source: [facility] 5:09 AM [facility] REPOSITORY TYPE CODE TESTS RESULT OUT OF REFERENCE UNITS RANGE LAB GLU(LOINC) 83-110 mg/dL Glucose Level 85 LAB NA(LOINC) 136-145 mmol/L Low Sodium Level 135 LAB K(LOINC) 3.5-5.1 mmol/L Potassium Level 4.6 LAB CL(LOINC) 98-107 mmol/L Chloride 101 LAB CO2(LOINC) 23-31 mmol/L CO2 24 LAB EBAL(LOINC mEq/L ) Electrolyte Balance 10.0 LAB BUN(LOINC) 7-18 mg/dL BUN High 40 LAB CRE(LOINC) 0.55-1.02 mg/dL Creatinine High Lvl (s) 1.78 LAB BC(LOINC) 7-27 ratio BUN/Creatinine 22 Ratio LAB CA(LOINC) 8.4-10.2 mg/dL Low Calcium Lvl 7.8 Performed By: #### CBC, ANEU, ADIFF #### [facility] [address] [place], [place] [address] #### BMP, GFR #### [address] [address] .GFR Collected: 07/07/2018 Status: F Source: [facility] 5:09 AM [facility] TYPE CODE TESTS RESULT OUT OF REFERENCE UNITS RANGE LAB GFRAA(LOINC ml/min/1.73 ) sqm GFR 33 Romanian Result Comment: GFR Population mean for , Non- Americans Ages 20-29 = 116 mL/min/1.73 sq.m. Ages 30-39 = 107 mL/min/1.73 sq.m. Ages 40-49 = 99 mL/min/1.73 sq.m. Ages 50-59 = 93 mL/min/1.73 sq.m. Ages 60-69 = 85 mL/min/1.73 sq.m. Ages 70+ = 75 mL/min/1.73 sq.m. Chronic Kidney Disease: Less than 60 mL/min/1.73 square meters End Stage Renal Disease: Less than 15 mL/min/1.73 square meters LAB GFRNO(LOINC) ml/min/1.73sqm GFR Non- 27 Result Comment: GFR Population mean for , Non- Americans Ages 20-29 = 116 mL/min/1.73 sq.m. Ages 30-39 = 107 mL/min/1.73 sq.m. Ages 40-49 = 99 mL/min/1.73 sq.m. Ages 50-59 = 93 mL/min/1.73 sq.m. Ages 60-69 = 85 mL/min/1.73 sq.m. Ages 70+ = 75 mL/min/1.73 sq.m. Chronic Kidney Disease: Less than 60 mL/min/1.73 square meters End Stage Renal Disease: Less than 15 mL/min/1.73 square meters Performed By: #### CBC, ANEU, ADIFF #### [address] [address] #### BMP, GFR #### [address] [address] CBC Collected: 07/07/2018 Status: F Source: [facility] 5:09 AM [facility] REPOSITORY TYPE CODE TESTS RESULT OUT OF REFERENCE UNITS RANGE LAB WBC(LOINC) 4.60-10.80 10 3/mcL High WBC 12.00 LAB RBCCT(LOINC 4.20-5.40 10 6/mcL ) Low RBC 3.20 LAB HGB(LOINC) 12.0-16.0 G/dL Low Hgb 8.9 LAB HCT(LOINC) 37.0-47.0 % Low Hct 27.1 LAB MCV(LOINC) 80.0-94.0 fL MCV 84.7 LAB MCH(LOINC) 27.0-31.2 pg MCH 27.8 LAB MCHC(LOINC) 33.0-37.0 G/dL Low MCHC 32.8 LAB RDW(LOINC) 11.5-14.5 % High RDW 18.0 LAB PLT(LOINC) 130-400 10 3/mcL Platelet 352 LAB MPV(LOINC) 7.4-10.4 fL MPV 7.7 Performed By: #### CBC, ANEU, ADIFF #### [address] [address] #### BMP, GFR #### [address] [address] .AUTO DIFF Collected: 07/07/2018 Status: F Source: [facility] 5:09 AM [facility] REPOSITORY TYPE CODE TESTS RESULT OUT OF REFERENCE UNITS RANGE LAB CONSTANTINE(LOINC) 37.0-80.0 % High Neutrophil % 80.8 LAB LYM(LOINC) 10.0-50.0 % Lymphocyte % 12.6 LAB MON(LOINC) 1.7-13.0 % Monocyte % 4.9 LAB EO(LOINC) 0.0-7.0 % Eosinophil % 1.4 LAB BAS(LOINC) 0.0-2.5 % Basophil % 0.3 LAB ABLYM(LOIN 0.77-3.85 10 3/mcL C) Lymphocyte, 1.50 Absolute LAB ERNIE(LOINC 0.15-1.00 10 3/mcL ) Monocyte, 0.60 Absolute LAB AEOS(LOINC 0.00-0.40 10 3/mcL ) Eosinophil, 0.20 Absolute LAB ABAS(LOINC 0.00-0.19 10 3/mcL ) Basophil, 0.00 Absolute Performed By: #### CBC, ANEU, ADIFF #### [place] [address] #### BMP, GFR #### [place] [address] .NEUABS Collected: 07/07/2018 Status: F Source: [facility] 5:09 AM [facility] REPOSITORY TYPE CODE TESTS RESULT OUT OF REFERENCE UNITS RANGE LAB ANEU(LOINC) 2.85-6.16 10 3/mcL High Neutrophil, 9.70 Absolute Performed By: #### CBC, ANEU, ADIFF #### [place] [address] #### BMP, GFR #### [place] [address] PRO Collected: 07/07/2018 Status: F Source: [facility] 5:09 AM [facility] REPOSITORY TYPE CODE TESTS RESULT OUT OF REFERENCE UNITS RANGE LAB PT(LOINC) 9.3-14.6 seconds Protime High 32.4 LAB INR(LOINC) 0.9-1.2 ratio PT High International 3.3 Ratio Result Comment: Standard Dose 2.0 - 3.0 High Dose 2.5 - 3.5 The recommended therapeutic range for oral anticoagulant therapy is: LOW RISK: Prophylaxis of venous thrombosis INR: 2.0 - 3.0 Treatment of pulmonary embolism 2.0 - 3.0 Prevention of systemic embolism 2.0 - 3.0 HIGH RISK: Mechanical prosthetic valves 2.5 - 3.5 Performed By: #### PRO #### [place] [id number] OCC (LAB) Collected: 07/06/2018 Status: F Source: [facility] 1:41 PM [facility] REPOSITORY TYPE CODE TESTS RESULT OUT OF REFERENCE UNITS RANGE LAB OCC(LOINC) Negative Occult Negative Blood Fecal Performed By: #### OCC #### [place] [id number] [place], [place] [address] CBC Collected: 07/06/2018 Status: F Source: [facility] 5:51 AM [facility] REPOSITORY TYPE CODE TESTS RESULT OUT OF REFERENCE UNITS RANGE LAB WBC(LOINC) 4.60-10.80 10 3/mcL WBC 8.80 LAB RBCCT(LOINC 4.20-5.40 10 6/mcL ) Low RBC 3.08 LAB HGB(LOINC) 12.0-16.0 G/dL Low Hgb 8.5 LAB HCT(LOINC) 37.0-47.0 % Low Hct 26.1 LAB MCV(LOINC) 80.0-94.0 fL MCV 84.9 LAB MCH(LOINC) 27.0-31.2 pg MCH 27.7 LAB MCHC(LOINC) 33.0-37.0 G/dL Low MCHC 32.7 LAB RDW(LOINC) 11.5-14.5 % High RDW 18.1 LAB PLT(LOINC) 130-400 10 3/mcL Platelet 341 LAB MPV(LOINC) 7.4-10.4 fL MPV 7.5 Performed By: #### CRP, BMP, ESR, GFR #### [place] [address] #### CBC, ANEU, ADIFF #### [place] [id number] [place], [place] [address] .AUTO DIFF Collected: 07/06/2018 Status: F Source: [facility] 5:51 AM [facility] REPOSITORY TYPE CODE TESTS RESULT OUT OF REFERENCE UNITS RANGE LAB CONSTANTINE(LOINC) 37.0-80.0 % Neutrophil % 68.8 LAB LYM(LOINC) 10.0-50.0 % Lymphocyte % 18.5 LAB MON(LOINC) 1.7-13.0 % Monocyte % 8.1 LAB EO(LOINC) 0.0-7.0 % Eosinophil % 4.3 LAB BAS(LOINC) 0.0-2.5 % Basophil % 0.3 LAB ABLYM(LOIN 0.77-3.85 10 3/mcL C) Lymphocyte, 1.60 Absolute LAB ERNIE(LOINC 0.15-1.00 10 3/mcL ) Monocyte, 0.70 Absolute LAB AEOS(LOINC 0.00-0.40 10 3/mcL ) Eosinophil, 0.40 Absolute LAB ABAS(LOINC 0.00-0.19 10 3/mcL ) Basophil, 0.00 Absolute Performed By: #### CRP, BMP, ESR, GFR #### [place] [address] #### CBC, ANEU, ADIFF #### [place] [id number] [place], [place] [address] .NEUABS Collected: 07/06/2018 Status: F Source: [facility] 5:51 AM [facility] REPOSITORY TYPE CODE TESTS RESULT OUT OF REFERENCE UNITS RANGE LAB ANEU(LOINC) 2.85-6.16 10 3/mcL Neutrophil, 6.10 Absolute Performed By: #### CRP, BMP, ESR, GFR #### [place] [address] #### CBC, ANEU, ADIFF #### [place] [id number] [place], [place] [address] BMP Collected: 07/06/2018 Status: F Source: [facility] 5:51 AM [facility] REPOSITORY TYPE CODE TESTS RESULT OUT OF REFERENCE UNITS RANGE LAB GLU(LOINC) 83-110 mg/dL Glucose Level 101 LAB NA(LOINC) 136-145 mmol/L Low Sodium Level 135 LAB K(LOINC) 3.5-5.1 mmol/L Potassium Level 5.0 LAB CL(LOINC) 98-107 mmol/L Chloride 104 LAB CO2(LOINC) 23-31 mmol/L CO2 23 LAB EBAL(LOINC mEq/L ) Electrolyte Balance 8.0 LAB BUN(LOINC) 7-18 mg/dL BUN High 39 LAB CRE(LOINC) 0.55-1.02 mg/dL Creatinine High Lvl (s) 1.78 LAB BC(LOINC) 7-27 ratio BUN/Creatinine 22 Ratio LAB CA(LOINC) 8.4-10.2 mg/dL Low Calcium Lvl 7.7 Performed By: #### CRP, BMP, ESR, GFR #### [address] [address] #### CBC, ANEU, ADIFF #### [address] [address] .GFR Collected: 07/06/2018 Status: F Source: [facility] 5:51 AM [facility] REPOSITORY TYPE CODE TESTS RESULT OUT OF REFERENCE UNITS RANGE LAB GFRAA(LOINC ml/min/1.73 ) sqm GFR 33 Romanian Result Comment: GFR Population mean for , Non- Americans Ages 20-29 = 116 mL/min/1.73 sq.m. Ages 30-39 = 107 mL/min/1.73 sq.m. Ages 40-49 = 99 mL/min/1.73 sq.m. Ages 50-59 = 93 mL/min/1.73 sq.m. Ages 60-69 = 85 mL/min/1.73 sq.m. Ages 70+ = 75 mL/min/1.73 sq.m. Chronic Kidney Disease: Less than 60 mL/min/1.73 square meters End Stage Renal Disease: Less than 15 mL/min/1.73 square meters LAB GFRNO(LOINC) ml/min/1.73sqm GFR Non- 27 Result Comment: GFR Population mean for , Non- Americans Ages 20-29 = 116 mL/min/1.73 sq.m. Ages 30-39 = 107 mL/min/1.73 sq.m. Ages 40-49 = 99 mL/min/1.73 sq.m. Ages 50-59 = 93 mL/min/1.73 sq.m. Ages 60-69 = 85 mL/min/1.73 sq.m. Ages 70+ = 75 mL/min/1.73 sq.m. Chronic Kidney Disease: Less than 60 mL/min/1.73 square meters End Stage Renal Disease: Less than 15 mL/min/1.73 square meters Performed By: #### CRP, BMP, ESR, GFR #### [address] [address] #### CBC, ANEU, ADIFF #### [place] [id number] [place], [place] [address] ESR Collected: 07/06/2018 Status: F Source: [facility] 5:51 AM [facility] REPOSITORY TYPE CODE TESTS RESULT OUT OF REFERENCE UNITS RANGE LAB ESR(LOINC) 0-30 mm/hr Erythrocyte High Sed Rate 67 Performed By: #### CRP, BMP, ESR, GFR #### [address] [address] #### CBC, ANEU, ADIFF #### [place] [id number] [place], [place] [address] CRP Collected: 07/06/2018 Status: F Source: [facility] 5:51 AM [facility] REPOSITORY TYPE CODE TESTS RESULT OUT OF REFERENCE UNITS RANGE LAB CRP(LOINC) <=0.80 mg/dL High C-Reactive 12.40 Protein Performed By: #### CRP, BMP, ESR, GFR #### [place] [id number] #### CBC, ANEU, ADIFF #### [place] [id number] [place], [place] [address] PRO Collected: 07/06/2018 Status: F Source: [facility] 5:51 AM [facility] REPOSITORY TYPE CODE TESTS RESULT OUT OF REFERENCE UNITS RANGE LAB PT(LOINC) 9.3-14.6 seconds Protime High 48.7 LAB INR(LOINC) 0.9-1.2 ratio PT High International 5.0 Ratio Result Comment: Standard Dose 2.0 - 3.0 High Dose 2.5 - 3.5 The recommended therapeutic range for oral anticoagulant therapy is: LOW RISK: Prophylaxis of venous thrombosis INR: 2.0 - 3.0 Treatment of pulmonary embolism 2.0 - 3.0 Prevention of systemic embolism 2.0 - 3.0 HIGH RISK: Mechanical prosthetic valves 2.5 - 3.5 Performed By: #### PRO #### [place] [id number] [place], [place] [address] PROGRESS Observed: 07/05/2018 Status: COMPLETED Source: [facility] 9:41 AM [facility] REPOSITORY HNO ID: [id number] Author: Maritza Tian britta Service: (none) Author Type: Registered Nurse Type: Progress Notes Filed: 07/05/2018 9:55 AM Note Text: PRIMARY CARE COORDINATION FOLLOW-UP NOTE Provider Action/FYI: Pt likely going to [facility] after hospitalization at [facility]. Patient identified by name and date of . YES Spoke to Carrie at [facility] Summary: Carrie is working directly with [facility] to transition pt to [facility] after her hospitalization. Concerns: We'll see how pt does when in rehab for longer period of time and hopefully she will be compliant with all their treatment plans. Chief Compressor Station Engineer plan for next outreach: Will follow up after D/C from Britney Howe RN Ambulatory Sap Consultant [facility] [place] [facility] July 05, 2018 CBC Collected: 07/05/2018 Status: F Source: [facility] 5:05 AM [facility] REPOSITORY TYPE CODE TESTS RESULT OUT OF REFERENCE UNITS RANGE LAB WBC(LOINC) 4.60-10.80 10 3/mcL High WBC 12.10 LAB RBCCT(LOINC 4.20-5.40 10 6/mcL ) Low RBC 3.27 LAB HGB(LOINC) 12.0-16.0 G/dL Low Hgb 8.9 LAB HCT(LOINC) 37.0-47.0 % Low Hct 28.2 LAB MCV(LOINC) 80.0-94.0 fL MCV 86.4 LAB MCH(LOINC) 27.0-31.2 pg MCH 27.4 LAB MCHC(LOINC) 33.0-37.0 G/dL Low MCHC 31.7 LAB RDW(LOINC) 11.5-14.5 % High RDW 17.9 LAB PLT(LOINC) 130-400 10 3/mcL Platelet 363 LAB MPV(LOINC) 7.4-10.4 fL MPV 7.9 Performed By: #### CBC, ANEU, ADIFF #### [facility] [address] [place], [place] [address] #### MG, FES, GFR, CMP #### [address] [address] .AUTO DIFF Collected: 07/05/2018 Status: F Source: [facility] 5:05 AM [facility] REPOSITORY TYPE CODE TESTS RESULT OUT OF REFERENCE UNITS RANGE LAB CONSTANTINE(LOINC) 37.0-80.0 % Neutrophil % 79.5 LAB LYM(LOINC) 10.0-50.0 % Lymphocyte % 13.8 LAB MON(LOINC) 1.7-13.0 % Monocyte % 5.8 LAB EO(LOINC) 0.0-7.0 % Eosinophil % 0.7 LAB BAS(LOINC) 0.0-2.5 % Basophil % 0.2 LAB ABLYM(LOIN 0.77-3.85 10 3/mcL C) Lymphocyte, 1.70 Absolute LAB ERNIE(LOINC 0.15-1.00 10 3/mcL ) Monocyte, 0.70 Absolute LAB AEOS(LOINC 0.00-0.40 10 3/mcL ) Eosinophil, 0.10 Absolute LAB ABAS(LOINC 0.00-0.19 10 3/mcL ) Basophil, 0.00 Absolute Performed By: #### CBC, ANEU, ADIFF #### [address] [address] #### MG, FES, GFR, CMP #### [place] [id number] .NEUABS Collected: 07/05/2018 Status: F Source: [facility] 5:05 [facility] EMER[facility]ENC[facility]PART[facility] REPOSITORY TYPE CODE TESTS RESULT OUT OF REFERENCE UNITS RANGE LAB ANEU(LOINC) 2.85-6.16 10 3/mcL High Neutrophil, 9.60 Absolute Performed By: #### CBC, ANEU, ADIFF #### [address] [address] #### MG, FES, GFR, CMP #### [place] [id number] MG Collected: 07/05/2018 Status: F Source: [facility] 5:05 [facility] EMERGENC[facility]PARTMENT REPOSITORY TYPE CODE TESTS RESULT OUT OF REFERENCE UNITS RANGE LAB MG(LOINC) 1.8-2.4 mg/dL Low Magnesium Lvl 1.6 Performed By: #### CBC, ANEU, ADIFF #### [address] [address] #### MG, FES, GFR, CMP #### [place] [address] FES Collected: 07/05/2018 Status: F Source: [facility] 5:05 [facility] EMERGENCY DEPARTMENT REPOSITORY TYPE CODE TESTS RESULT OUT OF RANGE REFERENCE UNITS LAB FE(LOINC) 50-70 mcg/dL Low Iron 9 LAB IBC(LOINC) 250-450 mcg/dL Low TIBC 102 LAB FESAT(LOINC % ) Iron Sat 9 Performed By: #### CBC, ANEU, ADIFF #### [place] [id number] [place], [place] [address] #### MG, FES, GFR, CMP #### [address] [address] .GFR Collected: 07/05/2018 Status: F Source: [facility] 5:05 [facility] REPOSITORY TYPE CODE TESTS RESULT OUT OF REFERENCE UNITS RANGE LAB GFRAA(LOINC ml/min/1.73 ) sqm GFR 28 Romanian Result Comment: GFR Population mean for , Non- Americans Ages 20-29 = 116 mL/min/1.73 sq.m. Ages 30-39 = 107 mL/min/1.73 sq.m. Ages 40-49 = 99 mL/min/1.73 sq.m. Ages 50-59 = 93 mL/min/1.73 sq.m. Ages 60-69 = 85 mL/min/1.73 sq.m. Ages 70+ = 75 mL/min/1.73 sq.m. Chronic Kidney Disease: Less than 60 mL/min/1.73 square meters End Stage Renal Disease: Less than 15 mL/min/1.73 square meters LAB GFRNO(LOINC) ml/min/1.73sqm GFR Non- 24 Result Comment: GFR Population mean for , Non- Americans Ages 20-29 = 116 mL/min/1.73 sq.m. Ages 30-39 = 107 mL/min/1.73 sq.m. Ages 40-49 = 99 mL/min/1.73 sq.m. Ages 50-59 = 93 mL/min/1.73 sq.m. Ages 60-69 = 85 mL/min/1.73 sq.m. Ages 70+ = 75 mL/min/1.73 sq.m. Chronic Kidney Disease: Less than 60 mL/min/1.73 square meters End Stage Renal Disease: Less than 15 mL/min/1.73 square meters Performed By: #### CBC, ANEU, ADIFF #### [place] [address] [address] #### MG, FES, GFR, CMP #### [address] [address] CMP Collected: 07/05/2018 Status: F Source: [facility] 5:05 [facility] REPOSITORY TYPE CODE TESTS RESULT OUT OF REFERENCE UNITS RANGE LAB GLU(LOINC) 83-110 mg/dL Glucose Level 105 LAB NA(LOINC) 136-145 mmol/L Sodium Level 138 LAB K(LOINC) 3.5-5.1 mmol/L Potassium Level 4.8 LAB CL(LOINC) 98-107 mmol/L Chloride 105 LAB CO2(LOINC) 23-31 mmol/L CO2 25 LAB EBAL(LOINC mEq/L ) Electrolyte Balance 8.0 LAB BUN(LOINC) 7-18 mg/dL BUN High 45 LAB CRE(LOINC) 0.55-1.02 mg/dL Creatinine High Lvl (s) 2.03 LAB BC(LOINC) 7-27 ratio BUN/Creatinine 22 Ratio LAB CA(LOINC) 8.4-10.2 mg/dL Low Calcium Lvl 7.7 LAB PROT(LOINC 6.4-8.2 G/dL ) Low Total Protein 6.0 LAB ALB(LOINC) 3.4-4.8 G/dL Low Albumin Level 2.0 LAB GLB(LOINC) G/dL Globulin 4.0 LAB AG(LOINC) 1.1-2.5 ratio Low A/G Ratio 0.5 LAB BILT(LOINC 0.2-1.0 mg/dL ) Bili Total 0.3 LAB AP(LOINC) 40-135 U/L Alk Phos 58 LAB AST(LOINC) 10-40 U/L AST/SGOT 35 LAB ALT(LOINC) 10-35 U/L ALT/SGPT 12 Performed By: #### CBC, ANEU, ADIFF #### [address] [address] #### MG, FES, GFR, CMP #### [address] [address] PRO Collected: 07/05/2018 Status: F Source: [facility] 5:05 AM [facility] REPOSITORY TYPE CODE TESTS RESULT OUT OF REFERENCE UNITS RANGE LAB PT(LOINC) 9.3-14.6 seconds Protime High 45.7 LAB INR(LOINC) 0.9-1.2 ratio PT High International 4.7 Ratio Result Comment: Standard Dose 2.0 - 3.0 High Dose 2.5 - 3.5 The recommended therapeutic range for oral anticoagulant therapy is: LOW RISK: Prophylaxis of venous thrombosis INR: 2.0 - 3.0 Treatment of pulmonary embolism 2.0 - 3.0 Prevention of systemic embolism 2.0 - 3.0 HIGH RISK: Mechanical prosthetic valves 2.5 - 3.5 Performed By: #### PRO #### [address] [address] CBC Collected: 07/04/2018 Status: F Source: [facility] 3:25 [facility] REPOSITORY TYPE CODE TESTS RESULT OUT OF REFERENCE UNITS RANGE LAB WBC(LOINC) 4.60-10.80 10 3/mcL High WBC 16.30 LAB RBCCT(LOINC 4.20-5.40 10 6/mcL ) Low RBC 3.15 LAB HGB(LOINC) 12.0-16.0 G/dL Low Hgb 8.6 LAB HCT(LOINC) 37.0-47.0 % Low Hct 26.9 LAB MCV(LOINC) 80.0-94.0 fL MCV 85.4 LAB MCH(LOINC) 27.0-31.2 pg MCH 27.4 LAB MCHC(LOINC) 33.0-37.0 G/dL Low MCHC 32.0 LAB RDW(LOINC) 11.5-14.5 % High RDW 17.7 LAB PLT(LOINC) 130-400 10 3/mcL Platelet 348 LAB MPV(LOINC) 7.4-10.4 fL MPV 7.6 Performed By: #### BMP, LAC, PBNP, GFR #### [place] [address] #### ADIFF, ANEU, CBC #### [place] [id number] [place], [place] [address] .AUTO DIFF Collected: 07/04/2018 Status: F Source: [facility] 3:25 [facility] REPOSITORY TYPE CODE TESTS RESULT OUT OF REFERENCE UNITS RANGE LAB CONSTANTINE(LOINC) 37.0-80.0 % High Neutrophil % 81.6 LAB LYM(LOINC) 10.0-50.0 % Lymphocyte % 13.2 LAB MON(LOINC) 1.7-13.0 % Monocyte % 4.6 LAB EO(LOINC) 0.0-7.0 % Eosinophil % 0.1 LAB BAS(LOINC) 0.0-2.5 % Basophil % 0.5 LAB ABLYM(LOIN 0.77-3.85 10 3/mcL C) Lymphocyte, 2.20 Absolute LAB ERNIE(LOINC 0.15-1.00 10 3/mcL ) Monocyte, 0.80 Absolute LAB AEOS(LOINC 0.00-0.40 10 3/mcL ) Eosinophil, 0.00 Absolute LAB ABAS(LOINC 0.00-0.19 10 3/mcL ) Basophil, 0.10 Absolute Performed By: #### BMP, LAC, PBNP, GFR #### [place] [address] #### ADIFF, ANEU, CBC #### [place] [id number] .NEUABS Collected: 07/04/2018 Status: F Source: [facility] 3:25 [facility] REPOSITORY TYPE CODE TESTS RESULT OUT OF REFERENCE UNITS RANGE LAB ANEU(LOINC) 2.85-6.16 10 3/mcL High Neutrophil, 13.30 Absolute Performed By: #### BMP, LAC, PBNP, GFR #### [place] [address] #### ADIFF, ANEU, CBC #### [place] [id number] PBNP Collected: 07/04/2018 Status: F Source: [facility] 3:25 [facility] REPOSITORY TYPE CODE TESTS RESULT OUT OF REFERENCE UNITS RANGE LAB PBNP(LOINC) 0-450 pg/mL High N-Terminal [address] proBNP Result Comment: NT-proBNP results of less than 300 pg/mL effectively rules out acute congestive heart failure with 99% negative predictive value. Performed By: #### BMP, LAC, PBNP, GFR #### [place] [address] #### ADIFF, ANEU, CBC #### [place] [id number] BMP Collected: 07/04/2018 Status: F Source: [facility] 3:25 PM [facility] REPOSITORY TYPE CODE TESTS RESULT OUT OF REFERENCE UNITS RANGE LAB GLU(LOINC) 83-110 mg/dL Glucose High Level 114 LAB NA(LOINC) 136-145 mmol/L Low Sodium Level 135 LAB K(LOINC) 3.5-5.1 mmol/L Potassium Level 4.4 LAB CL(LOINC) 98-107 mmol/L Chloride 104 LAB CO2(LOINC) 23-31 mmol/L Low CO2 21 LAB EBAL(LOINC mEq/L ) Electrolyte Balance 10.0 LAB BUN(LOINC) 7-18 mg/dL BUN High 41 LAB CRE(LOINC) 0.55-1.02 mg/dL Creatinine High Lvl (s) 1.73 LAB BC(LOINC) 7-27 ratio BUN/Creatinine 24 Ratio LAB CA(LOINC) 8.4-10.2 mg/dL Low Calcium Lvl 7.7 Performed By: #### BMP, LAC, PBNP, GFR #### [place] [address] #### ADIFF, ANEU, CBC #### [facility] [address] [place], [place] [address] .GFR Collected: 07/04/2018 Status: F Source: [facility] 3:25 [facility] REPOSITORY TYPE CODE TESTS RESULT OUT OF REFERENCE UNITS RANGE LAB GFRAA(LOINC ml/min/1.73 ) sqm GFR 34 Romanian Result Comment: GFR Population mean for , Non- Americans Ages 20-29 = 116 mL/min/1.73 sq.m. Ages 30-39 = 107 mL/min/1.73 sq.m. Ages 40-49 = 99 mL/min/1.73 sq.m. Ages 50-59 = 93 mL/min/1.73 sq.m. Ages 60-69 = 85 mL/min/1.73 sq.m. Ages 70+ = 75 mL/min/1.73 sq.m. Chronic Kidney Disease: Less than 60 mL/min/1.73 square meters End Stage Renal Disease: Less than 15 mL/min/1.73 square meters LAB GFRNO(LOINC) ml/min/1.73sqm GFR Non- 28 Result Comment: GFR Population mean for , Non- Americans Ages 20-29 = 116 mL/min/1.73 sq.m. Ages 30-39 = 107 mL/min/1.73 sq.m. Ages 40-49 = 99 mL/min/1.73 sq.m. Ages 50-59 = 93 mL/min/1.73 sq.m. Ages 60-69 = 85 mL/min/1.73 sq.m. Ages 70+ = 75 mL/min/1.73 sq.m. Chronic Kidney Disease: Less than 60 mL/min/1.73 square meters End Stage Renal Disease: Less than 15 mL/min/1.73 square meters Performed By: #### BMP, LAC, PBNP, GFR #### [facility] [address] [place] [address] #### ADIFF, ANEU, CBC #### [facility] [address] [place], [place] [address] LAC Collected: 07/04/2018 Status: F Source: [facility] 3:25 PM [facility] REPOSITORY TYPE CODE TESTS RESULT OUT OF REFERENCE UNITS RANGE LAB LAC(LOINC) 0.4-2.0 mmol/L Lactic Acid 1.0 Lvl Performed By: #### BMP, LAC, PBNP, GFR #### [facility] [address] [place] [address] #### ADIFF, ANEU, CBC #### [facility] [address] [place], [place] [address] PROGRESS Observed: 07/04/2018 Status: COMPLETED Source: [facility] 9:35 AM [facility] REPOSITORY HNO ID: [id number] Author: Maritza Tian [facility] Service: (none) Author Type: Registered Nurse Type: Progress Notes Filed: 07/05/2018 9:55 AM Note Text: PRIMARY CARE COORDINATION FOLLOW-UP NOTE Provider Action/FYI: Working on Rehab placement for pt again. Patient identified by name and date of . YES Spoke to numerous people Summary: The pt was not able to go to [facility] this weekend and wound up going to [facility] last night 07/03, per Sheron, her D-in-L. I then spoke with Beth the , at and explained what we were trying to do. She appreciated the help and I clarified the path that led Rosa to this situation. Concerns: Once we have an answer from [facility], I will notify her. If they are UNABLE to take pt, Beth will continue the search for care. Pt has been clear that she will NOT consider oil heaterman placement. They have decided to keep her at least one night since she was unable to participate in PT/OT eval. Chief Compressor Station Engineer plan for next outreach: Will follow up with answer from [facility]. Signature Maritza Howe RN Ambulatory Sap Consultant Internal Medicine [facility] July 04, 2018 Observed: 07/04/2018 Status: F Source: [facility] 5:26 AM [facility] REPOSITORY . MICRO - Microbiology PROCEDURE: Culture Wound Aerobic with Gram Stain [*1] SOURCE: Wound BODY SITE: Leg R COLLECTED DATE/TIME: 07/04/2018 05:26 EDT RECEIVED DATE/TIME: 07/04/2018 15:57 EDT START DATE/TIME: 07/04/2018 15:57 EDT FREE TEXT SOURCE: FINAL REPORTS Final Report [] Verified Date/Time/Personnel: 07/08/2018 10:33 EDT Moderate Proteus species Light Non Fermentering Gram Negative Rods Light Non Fermentering Gram Negative Rods #2 Moderate Staphylococcus aureus Due to the presence of numerous mixed bacteria, sensitivity testing on individual isolates is not routinely performed. Plates will be held 48 hours. PRELIMINARY REPORTS Preliminary Report [] Verified Date/Time/Personnel: 07/06/2018 10:39 EDT Moderate Proteus species Light Non Fermentering Gram Negative Rods Light Non Fermentering Gram Negative Rods #2 Final report to follow. Preliminary Report [] Verified Date/Time/Personnel: 07/05/2018 15:05 EDT Culture results pending. STAINS GS [] Verified Date/Time/Personnel: 07/04/2018 23:57 EDT 4+ Gram Negative Rods 1+ Gram Positive Cocci Performing Locations *1: This test was performed at: [facility], [address] [place] [address], [id number] , [facility] Performed By: #### CWD #### [address] [place], [place] [address] PRO Collected: 07/04/2018 Status: F Source: [facility] 5:02 AM [facility] REPOSITORY TYPE CODE TESTS RESULT OUT OF REFERENCE UNITS RANGE LAB PT(LOINC) 9.3-14.6 seconds Protime High 43.1 LAB INR(LOINC) 0.9-1.2 ratio PT High International 4.4 Ratio Result Comment: Standard Dose 2.0 - 3.0 High Dose 2.5 - 3.5 The recommended therapeutic range for oral anticoagulant therapy is: LOW RISK: Prophylaxis of venous thrombosis INR: 2.0 - 3.0 Treatment of pulmonary embolism 2.0 - 3.0 Prevention of systemic embolism 2.0 - 3.0 HIGH RISK: Mechanical prosthetic valves 2.5 - 3.5 Performed By: #### PRO #### [facility] [address] [place], [place] [address] CNPTOUTREACH Observed: 07/04/2018 Status: COMPLETED Source: [facility] 12:00 AM [facility] REPOSITORY Patient Outreach (INTMWS) DEVINROSA Giselle ([id number]) 1935 F Date Time Provider Department 07/04/18 MARITZA RUSSELL INTTulioWS During your visit today, we recorded the following information about you: Maritza Tian RN 07/05/2018 9:55 AM Signed PRIMARY CARE COORDINATION FOLLOW-UP NOTE Provider Action/FYI: Working on Rehab placement for pt again. Patient identified by name and date of . YES Spoke to numerous people Summary: The pt was not able to go to [facility] this weekend and wound up going to [facility] last night 07/03, per Sheron, her D-in-L. I then spoke with Beth, the , at and explained what we were trying to do. She appreciated the help and I clarified the path that led Rosa to this situation. Concerns: Once we have an answer from [facility], I will notify her. If they are UNABLE to take pt, Beth will continue the search for care. Pt has been clear that she will NOT consider halfway placement. They have decided to keep her at least one night since she was unable to participate in PT/OT eval. Chief Compressor Station Engineer plan for next outreach: Will follow up with answer from [facility]. Signature Maritza Howe RN Ambulatory Sap Consultant Internal Medicine [facility] July 04, 2018 Maritza Tian RN 07/05/2018 9:55 AM Signed PRIMARY CARE COORDINATION FOLLOW-UP NOTE Provider Action/FYI: Pt likely going to [facility] in [place] after hospitalization at [facility]. Patient identified by name and date of . YES Spoke to Carrie at [facility] Summary: Carrie is working directly with [facility] to transition pt to [facility] after her hospitalization. Concerns: We'll see how pt does when in rehab for longer period of time and hopefully she will be compliant with all their treatment plans. 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 Volodymyr Gilbert Limnology Teacher 10/04/2018 8:41 AM Signed No discharge plans at this time. Allergies As of Date: 07/04/2018 (No Known Allergies) Date Reviewed: 06/27/2018 Reviewed by: Belle Ignacio RN - Fully Assessed Prescriptions as of 07/04/2018 Sig: MENTHOL 0.44 %-ZINC OXIDE 20.* Apply 1 application to affect* CEPHALEXIN 500 MG CAPSULE Take 1 capsule by mouth three* NYSTATIN 100,000 UNIT/GRAM TO* Apply 1 application to affect* DEXTRAN 70-HYPROMELLOSE EYE D* Use 1 Drop in both eyes as ne* FUROSEMIDE 40 MG TABLET Take 1 tablet by mouth once d* OMEPRAZOLE 20 MG CAPSULE,LUIS MIGUEL* Take 1 capsule by mouth once * WARFARIN 3 MG TABLET Take 1 tablet by mouth daily * Patient taking differently: Take 3 mg by mouth once daily* GABAPENTIN 300 MG CAPSULE Take 1 capsule by mouth twice* ASPIRIN 81 MG TABLET,DELAYED * Take 81 mg by mouth every jean* LEVOTHYROXINE 100 MCG TABLET Take 1 tablet by mouth once d* Problem List As Of Date 07/04/2018 Noted Resolved Gastroesophageal reflux disease without esophag*INVALID FOR* Chronic atrial fibrillation (HCC) [I48.2] INVALID FOR* More... Pure hypercholesterolemia [E78.00] Hypertension [I10] Acquired hypothyroidism [E03.9] CAD (coronary artery disease) [I25.10] More... Depressive disorder [F32.9] INVALID FOR*07/18/2017 Primary osteoarthritis involving multiple joint*INVALID FOR* Lymphedema of both lower extremities [I89.0] INVALID FOR* Mouth dryness [R68.2] INVALID FOR* Muscular weakness [M62.81] INVALID FOR* Dorsalgia [M54.9] INVALID FOR* Stented coronary artery [Z95.5] INVALID FOR* Gastric bypass status for obesity [Z98.84] INVALID FOR* Bilateral leg ulcer (HCC) [L97.919, L97.929] INVALID FOR* Polyneuropathy (HCC) [G62.9] INVALID FOR* Cecal ulcer [K63.3] INVALID FOR*06/27/2018 Acute respiratory failure with hypoxia (HCC) [J*INVALID FOR*10/10/2017 More... More... More... Respiratory failure with hypoxia (HCC) [J96.91] INVALID FOR*05/25/2018 Heart failure with preserved ejection fraction *INVALID FOR* More... Requires continuous at home supplemental oxygen*INVALID FOR*01/20/2018 More... Adjustment disorder with depressed mood [F43.21]INVALID FOR* Constipation [K59.00] INVALID FOR* Leg ulcer, right, with fat layer exposed (HCC) *INVALID FOR* Ulcer of ankle, right, with fat layer exposed (*INVALID FOR* More... Venous stasis ulcer (HCC) [I83.009, L97.909] INVALID FOR* Anticoagulation goal of INR 2 to 3 [Z51.81, Z79*INVALID FOR* More... Class 2 obesity in adult [E66.9] INVALID FOR* More... Hypotension due to hypovolemia [I95.89, E86.1] INVALID FOR*05/25/2018 More... Pressure injury of skin, stage 2 [L89.92] INVALID FOR*06/27/2018 More... H/O noncompliance with medical treatment, prese*INVALID FOR* More... CKD (chronic kidney disease), stage III (HCC) [*INVALID FOR* Hyperkalemia [E87.5] INVALID FOR*05/24/2018 More... Peripheral vascular disease (HCC) [I73.9] INVALID FOR* Sundowning [F05] INVALID FOR*05/25/2018 More... Anemia [D64.9] INVALID FOR* Encounter Status:Closed by MARITZA HOWE on 07/05/18 Observed: 07/03/2018 Status: F Source: [facility] 10:44 PM [facility] REPOSITORY . MICRO - Microbiology PROCEDURE: Blood Culture (bacterial) [*1] SOURCE: Blood BODY SITE: COLLECTED DATE/TIME: 07/03/2018 22:44 EDT RECEIVED DATE/TIME: 07/04/2018 15:56 EDT START DATE/TIME: 07/04/2018 15:56 EDT FREE TEXT SOURCE: FINAL REPORTS Final Report [] Verified Date/Time/Personnel: 07/09/2018 15:59 EDT Blood Culture: No Growth at 5 days. PRELIMINARY REPORTS Preliminary Report [] Verified Date/Time/Personnel: 07/04/2018 16:59 EDT Culture has been received in lab and is no growth to date. Routine cultures are held for 5 days. Performing Locations *1: This test was performed at: [facility], [address] [place] [address], [address] [place] [address] Performed By: #### CBL #### [place] [address] XR CHEST 1 VIEW Observed: 07/03/2018 Status: F Source: [facility] 10:42 PM [facility] REPOSITORY ORIGINAL XR CHEST 1 VIEW PORTABLE AP CLINICAL STATEMENT: chest pain COMPARISON: Chest radiograph 04/20/2018, 02/26/2018 FINDINGS: The cardiomediastinal contours are stable. Lung volumes are low. There are increased interstitial markings bilaterally not significantly changed. Patchy airspace opacities are seen within the lungs bilaterally, also probably not significantly changed from 04/20/2018. No pneumothorax. No acute osseous abnormality. IMPRESSION: No significant interval change from multiple comparison radiographs. Interpreted By: Rosalie Alexis MD Preliminary Report By: Rosalie Alexis MD Electronically Signed By: Rosalie Alexis MD Dictated Date: 07/03/2018 11:05:59 PM Prelim Date: 07/03/2018 11:05:59 PM Sign Date: 07/03/2018 11:10:05 PM CBC Collected: 07/03/2018 Status: F Source: [facility] 10:29 [facility] REPOSITORY TYPE CODE TESTS RESULT OUT OF REFERENCE UNITS RANGE LAB WBC(LOINC) 4.60-10.80 10 3/mcL High WBC 19.30 LAB RBCCT(LOINC 4.20-5.40 10 6/mcL ) Low RBC 3.67 LAB HGB(LOINC) 12.0-16.0 G/dL Low Hgb 9.9 LAB HCT(LOINC) 37.0-47.0 % Low Hct 31.4 LAB MCV(LOINC) 80.0-94.0 fL MCV 85.5 LAB MCH(LOINC) 27.0-31.2 pg Low MCH 26.9 LAB MCHC(LOINC) 33.0-37.0 G/dL Low MCHC 31.5 LAB RDW(LOINC) 11.5-14.5 % High RDW 17.7 LAB PLT(LOINC) 130-400 10 3/mcL High Platelet 435 LAB MPV(LOINC) 7.4-10.4 fL MPV 7.6 Performed By: #### PBNP, LAC, GFR, TROP, BMP #### [address] [address] #### PRO, CBC, ANEU, ADIFF #### [address] [address] .AUTO DIFF Collected: 07/03/2018 Status: F Source: [facility] 10:29 PM [facility] REPOSITORY TYPE CODE TESTS RESULT OUT OF REFERENCE UNITS RANGE LAB CONSTANTINE(LOINC) 37.0-80.0 % High Neutrophil % 89.1 LAB LYM(LOINC) 10.0-50.0 % Low Lymphocyte % 5.7 LAB MON(LOINC) 1.7-13.0 % Monocyte % 4.4 LAB EO(LOINC) 0.0-7.0 % Eosinophil % 0.5 LAB BAS(LOINC) 0.0-2.5 % Basophil % 0.3 LAB ABLYM(LOIN 0.77-3.85 10 3/mcL C) Lymphocyte, 1.10 Absolute LAB ERNIE(LOINC 0.15-1.00 10 3/mcL ) Monocyte, 0.90 Absolute LAB AEOS(LOINC 0.00-0.40 10 3/mcL ) Eosinophil, 0.10 Absolute LAB ABAS(LOINC 0.00-0.19 10 3/mcL ) Basophil, 0.10 Absolute Performed By: #### PBNP, LAC, GFR, TROP, BMP #### [place] [address] #### PRO, CBC, ANEU, ADIFF #### [address] [address] .NEUABS Collected: 07/03/2018 Status: F Source: [facility] 10:29 PM [facility] REPOSITORY TYPE CODE TESTS RESULT OUT OF REFERENCE UNITS RANGE LAB ANEU(LOINC) 2.85-6.16 10 3/mcL High Neutrophil, 17.20 Absolute Performed By: #### PBNP, LAC, GFR, TROP, BMP #### [place] [address] #### PRO, CBC, ANEU, ADIFF #### [address] [address] BMP Collected: 07/03/2018 Status: F Source: [facility] 10:29 PM [facility] REPOSITORY TYPE CODE TESTS RESULT OUT OF REFERENCE UNITS RANGE LAB GLU(LOINC) 83-110 mg/dL Glucose High Level 121 LAB NA(LOINC) 136-145 mmol/L Low Sodium Level 135 LAB K(LOINC) 3.5-5.1 mmol/L Potassium Level 4.2 LAB CL(LOINC) 98-107 mmol/L Chloride 103 LAB CO2(LOINC) 23-31 mmol/L Low CO2 22 LAB EBAL(LOINC mEq/L ) Electrolyte Balance 10.0 LAB BUN(LOINC) 7-18 mg/dL BUN High 39 LAB CRE(LOINC) 0.55-1.02 mg/dL Creatinine High Lvl (s) 1.33 LAB BC(LOINC) 7-27 ratio High BUN/Creatinine 29 Ratio LAB CA(LOINC) 8.4-10.2 mg/dL Calcium Lvl 8.4 Performed By: #### PBNP, LAC, GFR, TROP, BMP #### [facility] [address] [place] [address] #### PRO, CBC, ANEU, ADIFF #### [address] [address] .GFR Collected: 07/03/2018 Status: F Source: [facility] 10:29 PM [facility] REPOSITORY TYPE CODE TESTS RESULT OUT OF REFERENCE UNITS RANGE LAB GFRAA(LOINC ml/min/1.73 ) sqm GFR 46 Romanian Result Comment: GFR Population mean for , Non- Americans Ages 20-29 = 116 mL/min/1.73 sq.m. Ages 30-39 = 107 mL/min/1.73 sq.m. Ages 40-49 = 99 mL/min/1.73 sq.m. Ages 50-59 = 93 mL/min/1.73 sq.m. Ages 60-69 = 85 mL/min/1.73 sq.m. Ages 70+ = 75 mL/min/1.73 sq.m. Chronic Kidney Disease: Less than 60 mL/min/1.73 square meters End Stage Renal Disease: Less than 15 mL/min/1.73 square meters LAB GFRNO(LOINC) ml/min/1.73sqm GFR Non- 38 Result Comment: GFR Population mean for , Non- Americans Ages 20-29 = 116 mL/min/1.73 sq.m. Ages 30-39 = 107 mL/min/1.73 sq.m. Ages 40-49 = 99 mL/min/1.73 sq.m. Ages 50-59 = 93 mL/min/1.73 sq.m. Ages 60-69 = 85 mL/min/1.73 sq.m. Ages 70+ = 75 mL/min/1.73 sq.m. Chronic Kidney Disease: Less than 60 mL/min/1.73 square meters End Stage Renal Disease: Less than 15 mL/min/1.73 square meters Performed By: #### PBNP, LAC, GFR, TROP, BMP #### [place] [address] #### PRO, CBC, ANEU, ADIFF #### [address] [address] TROP Collected: 07/03/2018 Status: F Source: [facility] 10:29 [facility] REPOSITORY TYPE CODE TESTS RESULT OUT OF REFERENCE UNITS RANGE LAB TROP(LOINC) 0.000-0.040 ng/mL Troponin <0.020 Result Comment: Troponin I reference range: 0.00-0.040 ng/mL Negative and non-diagnostic. >0.040 ng/mL Consistent with cardiac damage, increased clinical risk and possibility of myocardial infarction. Serial measurements, a rise & fall in test results, clinical history, appropriate symptoms and/or ECG changes may help assess possibility of CO. *Other non-acute coronary syndrome conditions such as CHF, myocarditis, pulmonary emboli, sepsis and cardiac surgery could result in myocardial damage and increased troponin levels. Performed By: #### PBNP, LAC, GFR, TROP, BMP #### [place] [address] #### PRO, CBC, ANEU, ADIFF #### [address] [address] PBNP Collected: 07/03/2018 Status: F Source: [facility] 10:29 [facility] REPOSITORY TYPE CODE TESTS RESULT OUT OF REFERENCE UNITS RANGE LAB PBNP(LOINC) 0-450 pg/mL High N-Terminal 3546 proBNP Result Comment: NT-proBNP results of less than 300 pg/mL effectively rules out acute congestive heart failure with 99% negative predictive value. Performed By: #### PBNP, LAC, GFR, TROP, BMP #### [place] [address] #### PRO, CBC, ANEU, ADIFF #### [address] [address] PRO Collected: 07/03/2018 Status: F Source: [facility] 10:29 [facility] REPOSITORY TYPE CODE TESTS RESULT OUT OF REFERENCE UNITS RANGE LAB PT(LOINC) 9.3-14.6 seconds Protime High 39.5 LAB INR(LOINC) 0.9-1.2 ratio PT High International 4.0 Ratio Result Comment: Standard Dose 2.0 - 3.0 High Dose 2.5 - 3.5 The recommended therapeutic range for oral anticoagulant therapy is: LOW RISK: Prophylaxis of venous thrombosis INR: 2.0 - 3.0 Treatment of pulmonary embolism 2.0 - 3.0 Prevention of systemic embolism 2.0 - 3.0 HIGH RISK: Mechanical prosthetic valves 2.5 - 3.5 Performed By: #### PBNP, LAC, GFR, TROP, BMP #### [place] [address] #### PRO, CBC, ANEU, ADIFF #### [address] [address] LAC Collected: 07/03/2018 Status: F Source: [facility] 10:29 [facility] REPOSITORY TYPE CODE TESTS RESULT OUT OF REFERENCE UNITS RANGE LAB LAC(LOINC) 0.4-2.0 mmol/L Lactic Acid 1.4 Lvl Performed By: #### PBNP, LAC, GFR, TROP, BMP #### [place] [address] #### PRO, CBC, ANEU, ADIFF #### [address] [address] UA Collected: 07/03/2018 Status: F Source: [facility] 10:29 [facility] REPOSITORY TYPE CODE TESTS RESULT OUT OF REFERENCE UNITS RANGE LAB SPCUA(LOIN C) UA Specimen Type Catheter LAB CLRUA(LOIN C) UA Color Yellow LAB APPUA(LOIN Clear C) UA Appear Clear LAB SGUA(LOINC ) UA Spec Grav 1.020 LAB GLUA(LOINC Negative mg/dL ) UA Glucose Negative LAB BILUA(LOIN Negative C) UA Bili Negative LAB KETUA(LOIN Negative mg/dL C) UA Ketones Negative LAB BLDUA(LOIN Negative C) UA Blood Negative LAB PHUA(LOINC ) UA pH 5.0 LAB PROUA(LOIN Negative mg/dL C) UA Protein Trace LAB UROUA(LOIN E.U./dL C) UA Urobilinogen 0.2 LAB NITUA(LOIN Negative C) UA Nitrite Negative LAB LEUUA(LOIN Negative C) UA Leuk Est Negative Performed By: #### UAMICAO, UA #### Jermaine [address] [place], [place] [address] .URINALYSIS MICROSCOPIC Collected: 07/03/2018 Status: F Source: JERMAINE () 10:29 PM [facility] REPOSITORY TYPE CODE TESTS RESULT OUT OF REFERENCE UNITS RANGE LAB WBCUA(LOIN None Seen /hpf C) UA WBC None Seen LAB RBCUA(LOIN None Seen /hpf C) UA RBC None Seen LAB EPIUA(LOIN None Seen /hpf C) UA Squam Epithelial None Seen Performed By: #### UAMICAO, UA #### Jermaine Green[address] [place], [place] [address] Observed: 07/03/2018 Status: F Source: [facility] 10:29 PM [facility] REPOSITORY . MICRO - Microbiology PROCEDURE: Blood Culture (bacterial) [*1] SOURCE: Blood BODY SITE: COLLECTED DATE/TIME: 07/03/2018 22:29 EDT RECEIVED DATE/TIME: 07/04/2018 15:56 EDT START DATE/TIME: 07/04/2018 15:56 EDT FREE TEXT SOURCE: FINAL REPORTS Final Report [] Verified Date/Time/Personnel: 07/09/2018 15:59 EDT Blood Culture: No Growth at 5 days. PRELIMINARY REPORTS Preliminary Report [] Verified Date/Time/Personnel: 07/04/2018 16:59 EDT Culture has been received in lab and is no growth to date. Routine cultures are held for 5 days. Performing Locations *1: This test was performed at: [facility], [address] [place] [address], [address] [place] [address] Performed By: #### CBL #### [place] [address] Observed: 07/03/2018 Status: F Source: [facility] 10:29 PM [facility] REPOSITORY . MICRO - Microbiology PROCEDURE: Urine Culture [*1] SOURCE: Urine BODY SITE: COLLECTED DATE/TIME: 07/03/2018 22:29 EDT RECEIVED DATE/TIME: 07/04/2018 15:42 EDT START DATE/TIME: 07/04/2018 15:43 EDT FREE TEXT SOURCE: FINAL REPORTS Final Report [] Verified Date/Time/Personnel: 07/06/2018 07:05 EDT No growth at 48 hours. Sensitivity testing not indicated. PRELIMINARY REPORTS Preliminary Report [] Verified Date/Time/Personnel: 07/05/2018 06:46 EDT No growth to date Performing Locations *1: This test was performed at: [facility], [address] [place] [address], [place], [address]- , [facility] Performed By: #### CUR #### [facility] [address] [place] [id number] PROGRESS Observed: 06/30/2018 Status: COMPLETED Source: [facility] 5:21 PM [facility] REPOSIT[facility] HNO ID: [id number] Author: Maritza Howe Service: (none) Author Type: Registered Nurse Type: Progress Notes Filed: 07/04/2018 9:18 AM Note Text: PRIMARY CARE COORDINATION FOLLOW-UP NOTE Provider Action/FYI: Pt to go to [facility]. Patient identified by name and date of . YES Spoke to daughter in law, Sheron Summary: Pt has used all 5 canisters which collect fluid on the wound vac and Medicare only approves that many a week and she used them in less than 2 days. They have changed the drsgs plan but have to be done BID and no on can do that. Rosa has agreed that she wants to go to SNF until she can get wounds healed sufficiently. She prefers the [facility] in [place]. Sheron has spoke with Carrie and asked me to contact her to make arrangements. She has been told it could take a couple days. Concerns: Pt's legs re so swollen that the fluid is being sucked out by the Woundvac. She and daughter are incapable of the significant wound care, drsg changes ,etc. Pt's legs are so heavay she is having difficulty lifting legs into bed so she sleeps in recliner, but legs not elevated enough. Chief Compressor Station Engineer plan for next outreach: Will follow up (due to holiday). with the [facility]. Signature Maritza Howe military analyst Sap Consultant Internal Medicine [facility] June 30, 2018 CNPTOUTRROSANNA Observed: 06/30/2018 Status: COMPLETED Source: VICTOR 12:00 AM [facility] REPOSITORY Patient Outreach (INTMWS) ROSA BELTRAN ([id number]) 1935 F Date Time Provider Department 06/30/18 MARITZA RUSSELL During your visit today, we recorded the following information about you: Maritza iTan RN 07/04/2018 9:18 AM Signed PRIMARY CARE COORDINATION FOLLOW-UP NOTE Provider Action/FYI: Pt to go to [facility]. Patient identified by name and date of . YES Spoke to daughter in law, Sheron Summary: Pt has used all 5 canisters which collect fluid on the wound vac and Medicare only approves that many a week and she used them in less than 2 days. They have changed the drsgs plan but have to be done BID and no on can do that. Rosa has agreed that she wants to go to SNF until she can get wounds healed sufficiently. She prefers the [facility] in [place]. Sheron has spoke with Carrie and asked me to contact her to make arrangements. She has been told it could take a couple days. Concerns: Pt's legs re so swollen that the fluid is being sucked out by the Woundvac. She and daughter are incapable of the significant wound care, drsg changes ,etc. Pt's legs are so heavay she is having difficulty lifting legs into bed so she sleeps in recliner, but legs not elevated enough. Chief Compressor Station Engineer plan for next outreach: Will follow up (due to holiday). with the [facility]. Signature Maritza Howe RN Ambulatory Sap Consultant Internal Medicine [place] [facility] June 30, 2018 Volodymyr Gilbert CMA 08/02/2018 8:51 AM Signed [facility] past [facility] weeks and was unable to get a hold of anyone, but Left message for to return call #[phone]. I got a hold of someone today and they said the SW if out of the office at this time, but they took my Name and direct number so they will give her the message and have her give me a call back. Volodymyr Gilbert [facility] 08/03/2018 2:50 PM Signed Left message with Eva [phone] (she will call me back) Volodymyr Gilbert [facility] 08/04/2018 11:05 AM Signed I called and spoke with ZENA Velasquez at [facility] ([phone]) who states Rosa is doing well. This past Tuesday she had a skin graph done, no major issues, eating well, doing therapy, non weight bearing, bed bound. Labs been ok, keeping an eye on platelet counts. Still on IV antibiotics. Eva has been in contact with Ciara Daughter in law, Sheron. They're still trying to decide if they're going to take her home with them (they already have home health care set up) or look at halfway care facilities. They may have a decision next week. Volodymyr Gilbert [facility] 08/09/2018 12:14 PM Signed I spoke with ZENA Velasquez at [facility] who states she's been in contact with Helena at [facility] in [place] and Rosa will potentially be transferring to [facility] today. She will be there for rehab/therapy and wound care and will hopefully will be able to be discharged home at some point. Volodymyr Gilbert [facility] 08/16/2018 9:30 AM Signed I called and spoke with [facility] who states Rosa was transferred to their facility last week. Unable to reach SW, but they will give her the message and call with any discharge plans/updats. Volodymyr Gilbert [facility] 08/24/2018 9:17 AM Signed No discharge plans in place at this time. Volodymyr Gilbert [facility] 08/30/2018 9:25 AM Signed Left message for SW to return call #[phone] Volodymyr Gilbert [facility] 09/07/2018 10:02 AM Signed No discharge plans in place at this time. Volodymyr Gilbert [facility] 09/13/2018 9:53 AM Signed Left message for SW to return my call for an update. Volodymyr Gilbert [facility] 09/20/2018 8:59 AM Addendum Left message for SW to return call #[phone] Volodymyr Gilbert [facility] 09/27/2018 8:58 AM Signed Left message for to return call #[phone]. Patient still @ [facility]. Volodymyr Gilbert, [facility] 10/11/2018 8:55 AM Signed I spoke with Kd @ [facility] and she states there's no discharge plans in place at this time. Volodymyr Gilbert, [facility] 10/18/2018 8:34 AM Signed I spoke with Emilee at [facility] and she states there are no discharge plans at this time. Allergies As of Date: 06/30/2018 (No Known Allergies) Date Reviewed: 06/27/2018 Reviewed by: Belle Ignacio RN - Fully Assessed Reason for Visit: Transition Of Care [4074] Reason For Visit History Recorded Prescriptions as of 06/30/2018 Sig: ASPIRIN 81 MG TABLET,DELAYED * Take 81 mg by mouth every jean* CEPHALEXIN 500 MG CAPSULE Take 1 capsule by mouth three* DEXTRAN 70-HYPROMELLOSE EYE D* Use 1 Drop in both eyes as ne* FUROSEMIDE 40 MG TABLET Take 1 tablet by mouth once d* GABAPENTIN 300 MG CAPSULE Take 1 capsule by mouth twice* LEVOTHYROXINE 100 MCG TABLET Take 1 tablet by mouth once d* MENTHOL 0.44 %-ZINC OXIDE 20.* Apply 1 application to affect* NYSTATIN 100,000 UNIT/GRAM TO* Apply 1 application to affect* OMEPRAZOLE 20 MG CAPSULE,LUIS MIGUEL* Take 1 capsule by mouth once * WARFARIN 3 MG TABLET Take 1 tablet by mouth daily * Patient taking differently: Take 3 mg by mouth once daily* Problem List As Of Date 06/30/2018 Noted Resolved Gastroesophageal reflux disease without esophag*INVALID FOR* Chronic atrial fibrillation (HCC) [I48.2] INVALID FOR* More... Pure hypercholesterolemia [E78.00] Hypertension [I10] Acquired hypothyroidism [E03.9] CAD (coronary artery disease) [I25.10] More... Depressive disorder [F32.9] INVALID FOR*07/18/2017 Primary osteoarthritis involving multiple joint*INVALID FOR* Lymphedema of both lower extremities [I89.0] INVALID FOR* Mouth dryness [R68.2] INVALID FOR* Muscular weakness [M62.81] INVALID FOR* Dorsalgia [M54.9] INVALID FOR* Stented coronary artery [Z95.5] INVALID FOR* Gastric bypass status for obesity [Z98.84] INVALID FOR* Bilateral leg ulcer (HCC) [L97.919, L97.929] INVALID FOR* Polyneuropathy (HCC) [G62.9] INVALID FOR* Cecal ulcer [K63.3] INVALID FOR*06/27/2018 Acute respiratory failure with hypoxia (HCC) [J*INVALID FOR*10/10/2017 More... More... More... Respiratory failure with hypoxia (HCC) [J96.91] INVALID FOR*05/25/2018 Heart failure with preserved ejection fraction *INVALID FOR* More... Requires continuous at home supplemental oxygen*INVALID FOR*01/20/2018 More... Adjustment disorder with depressed mood [F43.21]INVALID FOR* Constipation [K59.00] INVALID FOR* Leg ulcer, right, with fat layer exposed (HCC) *INVALID FOR* Ulcer of ankle, right, with fat layer exposed (*INVALID FOR* More... Venous stasis ulcer (HCC) [I83.009, L97.909] INVALID FOR* Anticoagulation goal of INR 2 to 3 [Z51.81, Z79*INVALID FOR* More... Class 2 obesity in adult [E66.9] INVALID FOR* More... Hypotension due to hypovolemia [I95.89, E86.1] INVALID FOR*05/25/2018 More... Pressure injury of skin, stage 2 [L89.92] INVALID FOR*06/27/2018 More... H/O noncompliance with medical treatment, prese*INVALID FOR* More... CKD (chronic kidney disease), stage III (HCC) [*INVALID FOR* Hyperkalemia [E87.5] INVALID FOR*05/24/2018 More... Peripheral vascular disease (HCC) [I73.9] INVALID FOR* Sundowning [F05] INVALID FOR*05/25/2018 More... Anemia [D64.9] INVALID FOR* Encounter Status:Closed by MARITZA HOWE on 07/04/18 LUCIANO Observed: 06/30/2018 Status: COMPLETED Source: MARTIN 12:00 AM [facility] REPOSITORY Telephone (INTMWS) ROSA BELTRAN ([id number]) 1935 F Date Time Provider Department 06/30/18 AURORA BOLAND During your visit today, we recorded the following information about you: Carrie Steiner RN 06/30/2018 1:14 PM Signed Nurse Marlen calling from [facility]. Patient had wound vac discontinued due to container being full every 3 hours and she now has a Optilock dressing that has to be drained twice a day and daughter works too many hours and is unable to do this and is needing SNF admission for her mother today if possible. VNS called to [facility] and [facility] and they are both full. They also have calls out to other LTC facilities in [facility] and are awaiting calls back for an open bed. This nurse forwarded to on-call doctor, Dr. Boland and to client care specialist for review. Carrie BOLAND MD 06/30/2018 4:41 PM Signed I think it might be hard to get any help over the week end. Can home health help her with this, by going in 2 times a day over the weekend?but not sure how to coordinate this over the weekend Any suggestions maria elena? Ivana Multani LPN 07/04/2018 8:36 AM Signed LM bárbara Gee to return call to Triage nurse. Maritza Tian RN 07/04/2018 9:05 AM Signed Discussed with SNF and sent all papers on Tue. They were to pursue with pt/daughter in law. Allergies As of Date: 06/30/2018 (No Known Allergies) Date Reviewed: 06/27/2018 Reviewed by: Belle Ignacio RN - Fully Assessed Reason for Visit: condition change [Other] looking for SNF [Other] Cmt: in [facility] for admission soon Reason For Visit History Recorded Prescriptions as of 06/30/2018 Sig: MENTHOL 0.44 %-ZINC OXIDE 20.* Apply 1 application to affect* CEPHALEXIN 500 MG CAPSULE Take 1 capsule by mouth three* NYSTATIN 100,000 UNIT/GRAM TO* Apply 1 application to affect* DEXTRAN 70-HYPROMELLOSE EYE D* Use 1 Drop in both eyes as ne* FUROSEMIDE 40 MG TABLET Take 1 tablet by mouth once d* OMEPRAZOLE 20 MG CAPSULE,LUIS MIGUEL* Take 1 capsule by mouth once * WARFARIN 3 MG TABLET Take 1 tablet by mouth daily * Patient taking differently: Take 3 mg by mouth once daily* GABAPENTIN 300 MG CAPSULE Take 1 capsule by mouth twice* ASPIRIN 81 MG TABLET,DELAYED * Take 81 mg by mouth every jean* LEVOTHYROXINE 100 MCG TABLET Take 1 tablet by mouth once d* Problem List As Of Date 06/30/2018 Noted Resolved Gastroesophageal reflux disease without esophag*INVALID FOR* Chronic atrial fibrillation (HCC) [I48.2] INVALID FOR* Priority: B More... Pure hypercholesterolemia [E78.00] Hypertension [I10] Priority: D Acquired hypothyroidism [E03.9] Priority: F CAD (coronary artery disease) [I25.10] More... 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 More... More... Respiratory failure with hypoxia (HCC) [J96.91] INVALID FOR*05/25/2018 Priority: Severe Heart failure with preserved ejection fraction *INVALID FOR* Priority: B More... Requires continuous at home supplemental oxygen*INVALID FOR*01/20/2018 More... Adjustment disorder with depressed mood [F43.21]INVALID FOR* Constipation [K59.00] INVALID FOR* Leg ulcer, right, with fat layer exposed (HCC) *INVALID FOR* Ulcer of ankle, right, with fat layer exposed (*INVALID FOR* Priority: A More... Venous stasis ulcer (HCC) [I83.009, L97.909] INVALID FOR* Priority: A Anticoagulation goal of INR 2 to 3 [Z51.81, Z79*INVALID FOR* Priority: C More... Class 2 obesity in adult [E66.9] INVALID FOR* Priority: M More... Hypotension due to hypovolemia [I95.89, E86.1] INVALID FOR*05/25/2018 Priority: D More... Pressure injury of skin, stage 2 [L89.92] INVALID FOR*06/27/2018 Priority: E More... H/O noncompliance with medical treatment, prese*INVALID FOR* Priority: E More... CKD (chronic kidney disease), stage III (HCC) [*INVALID FOR* Priority: D Hyperkalemia [E87.5] INVALID FOR*05/24/2018 More... Peripheral vascular disease (HCC) [I73.9] INVALID FOR* Priority: C Sundowning [F05] INVALID FOR*05/25/2018 More... Anemia [D64.9] INVALID FOR* Encounter Status:Closed by MARITZA HOWE on 07/04/18 PROGRESS Observed: 06/29/2018 Status: COMPLETED Source: VICTOR 5:01 PM [facility] REPOSITORY O ID: [id number] Author: Mani Newman Service: (none) Author Type: Physician Type: Progress Notes Filed: 06/30/2018 8:13 AM Note Text: Received medication reconciliation fax from Visiting Nurse. Current Outpatient Prescriptions: Menthol-Zinc Oxide (CALMOSEPTINE) 0.44-20.6 % Apply 1 application to affected area once daily. Buttock. cephALEXin (KEFLEX) 500 mg capsule Take 1 capsule by mouth three times daily. nystatin (MYCOSTATIN) powder Apply 1 application to affected area daily at bedtime. Groin. dextran 70-hypromellose (TEARS NATURALE) dpet Use 1 Drop in both eyes as needed. omeprazole (PRILOSEC) 20 mg capsule Take 1 capsule by mouth once daily. warfarin (COUMADIN) 3 mg tablet Take 1 tablet by mouth daily as directed. Patient is taking 2mg Tuesday and and 3mg other days. (Patient taking differently: Take 3 mg by mouth once daily. ) gabapentin (NEURONTIN) 300 mg capsule Take 1 capsule by mouth twice daily for 180 days. aspirin, enteric coated (ASPIRIN, ENTERIC COATED) 81 mg EC tablet Take 81 mg by mouth every evening. levothyroxine (LEVOXYL) 100 mcg tablet Take 1 tablet by mouth once daily. Take on empty stomach. For Thyroid. No current facility-administered medications for this visit. ASSESSMENT/PLAN: 1. Heart failure with preserved ejection fraction (HCC) - ICD9: 428.9, ICD10: I50.30 (primary diagnosis) Start Lasix. - FUROSEMIDE 40 MG TABLET Signed Prescriptions Disp Refills furosemide (LASIX) 40 mg tablet 30 tablet 2 Sig: Take 1 tablet by mouth once daily. Order entered - please notify patient. 2. Lymphedema of both lower extremities - ICD9: 457.1, ICD10: I89.0 - FUROSEMIDE 40 MG TABLET - BASIC METABOLIC PNL 3. Anemia, unspecified type - ICD9: 285.9, ICD10: D64.9 - CBC + DIFF - IRON + TIBC - RETIC COUNT - VITAMIN B12 BLOOD - FOLATE SERUM Labs in 2 weeks, either here or thru . Mani Newman MD PROGRESS Observed: 06/28/2018 Status: COMPLETED Source: VICTOR 3:30 PM [facility] REPOSITORY [facility] ID: [id number] Author: Maritza Tian [facility] Service: (none) Author Type: Registered Nurse Type: Progress Notes Filed: 06/30/2018 8:13 AM Note Text: PRIMARY CARE COORDINATION FOLLOW-UP NOTE Provider Action/FYI: Hgb decreased, cannot find a previous scope record. Current med list from on your desk to review. Patient identified by name and date of . YES Spoke to Reyes at Hyperbaric treatment at wound Center at [facility]. Summary: Pt is NOT scheduled for hyperbaric treatments, but rather mist therapy- it is comparable to hydrotherapy done in physical therapy. Apparently they had talked about a local hyperbaric therapy but small unit that she would lay down for and place her leg in. These therapies are not covered by transportation. She has [employer] as secondary insurance and they do not provide transportation. Concerns: Please see lab results: Component Latest Ref Rng AND Units 10/02/2017 05/22/2018 05/23/2018 05/24/2018 05/25/2018 06/27/2018 WBC 3.70 - 11.00 k/uL 8.27 9.49 6.97 6.44 6.57 RBC 3.90 - 5.20 m/uL 4.23 4.09 3.43 (L) 3.50 (L) 3.23 (L) Hemoglobin 11.5 - 15.5 g/dL 11.6 11.3 (L) 9.4 (L) 9.5 (L) 8.9 (L) Hematocrit 36.0 - 46.0 % 38.4 37.3 31.5 (L) 32.3 (L) 29.5 (L) MCV 80.0 - 100.0 fL 90.8 91.2 91.8 92.3 91.3 MCH 26.0 - 34.0 pG 27.4 27.6 27.4 27.1 27.6 MCHC 30.5 - 36.0 g/dL 30.2 (L) 30.3 (L) 29.8 (L) 29.4 (L) 30.2 (L) RDW-CV 11.5 - 15.0 % 18.0 (H) 17.8 (H) 17.8 (H) 17.3 (H) 16.4 (H) Platelet Count 150 - 400 k/uL 309 293 258 244 201 MPV 9.0 - 12.7 fL 9.6 9.5 10.1 9.9 10.6 Neut% % 67.3 Abs Neut (ANC) 1.45 - 7.50 k/uL 5.57 Lymph% % 22.4 Abs Lymph 1.00 - 4.00 k/uL 1.85 [place]% % 7.4 Abs [place] <0.87 k/uL 0.61 Eosin% % 2.4 Abs Eosin <0.46 k/uL 0.20 Baso% % 0.5 Abs Baso <0.11 k/uL 0.04 Protein, Total 6.3 - 8.0 g/dL 8.9 (H) 8.0 7.7 Albumin 3.9 - 4.9 g/dL 3.2 (L) 3.1 (L) 2.6 (L) 3.3 (L) Calcium 8.5 - 10.2 mg/dL 8.7 8.6 7.8 (L) 8.1 (L) 8.8 Bilirubin, Total 0.2 - 1.3 mg/dL 0.5 0.7 0.3 Alkaline Phosphatase 32 - 117 U/L 82 74 69 AST 13 - 35 U/L 33 32 28 Glucose 74 - 99 mg/dL 87 92 81 97 78 BUN 7 - 21 mg/dL 36 (H) 34 (H) 32 (H) 25 (H) 19 Creatinine 0.58 - 0.96 mg/dL 1.31 (H) 1.25 (H) 1.13 (H) 0.89 0.97 (H) Sodium 136 - 144 mmol/L 133 (L) 134 (L) 132 (L) 135 (L) 137 Potassium 3.7 - 5.1 mmol/L 5.5 (H) 5.6 (H) 5.1 4.9 4.4 Chloride 97 - 105 mmol/L 98 99 99 102 100 CO2 22 - 30 mmol/L 25 25 24 26 24 Anion Gap 9 - 18 mmol/L 10 10 9 7 (L) 13 ALT 7 - 38 U/L 9 8 9 eGFR- 47 50 56 >60 >60 eGFR-All Other Races . 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 Rep states they were not signed into lab until midnight and they are running behind with hospital pts taking priority and should be resulted this afternoon. Her Hgb is running lower over past month. Can't find any Hx of scoping. Component Latest Ref Rng AND Units 05/23/2018 05/24/2018 05/25/2018 06/27/2018 WBC 3.70 - 11.00 k/uL 9.49 6.97 6.44 6.57 RBC 3.90 - 5.20 m/uL 4.09 3.43 (L) 3.50 (L) 3.23 (L) Hemoglobin 11.5 - 15.5 g/dL 11.3 (L) 9.4 (L) 9.5 (L) 8.9 (L) Hematocrit 36.0 - 46.0 % 37.3 31.5 (L) 32.3 (L) 29.5 (L) MCV 80.0 - 100.0 fL 91.2 91.8 92.3 91.3 MCH 26.0 - 34.0 pG 27.6 27.4 27.1 27.6 MCHC 30.5 - 36.0 g/dL 30.3 (L) 29.8 (L) 29.4 (L) 30.2 (L) RDW-CV 11.5 - 15.0 % 17.8 (H) 17.8 (H) 17.3 (H) 16.4 (H) Platelet Count 150 - 400 k/uL 293 258 244 201 MPV 9.0 - 12.7 fL 9.5 10.1 9.9 10.6 Absolute nRBC <0.01 k/uL <0.01 CNPTOUTREACH Observed: 06/28/2018 Status: COMPLETED Source: VICTOR 12:00 AM [facility] REPOSITORY Patient Outreach (INTMWS) ROSA BELTRAN ([id number]) 1935 F Date Time Provider Department 06/28/18 MARITZA RUSSELL During your visit today, we recorded the following information about you: Maritza Tian RN 06/30/2018 8:13 AM Signed PRIMARY CARE COORDINATION FOLLOW-UP NOTE Provider Action/FYI: Hgb decreased, cannot find a previous scope record. Current med list from on your desk to review. Patient identified by name and date of . YES Spoke to Reyes at Hyperbaric treatment at wound Center at [facility]. Summary: Pt is NOT scheduled for hyperbaric treatments, but rather mist therapy- it is comparable to hydrotherapy done in physical therapy. Apparently they had talked about a local hyperbaric therapy but small unit that she would lay down for and place her leg in. These therapies are not covered by transportation. She has [employer] as secondary insurance and they do not provide transportation. Concerns: Please see lab results: Component Latest Ref Rng AND Units 10/02/2017 05/22/2018 05/23/2018 05/24/2018 05/25/2018 06/27/2018 WBC 3.70 - 11.00 k/uL 8.27 9.49 6.97 6.44 6.57 RBC 3.90 - 5.20 m/uL 4.23 4.09 3.43 (L) 3.50 (L) 3.23 (L) Hemoglobin 11.5 - 15.5 g/dL 11.6 11.3 (L) 9.4 (L) 9.5 (L) 8.9 (L) Hematocrit 36.0 - 46.0 % 38.4 37.3 31.5 (L) 32.3 (L) 29.5 (L) MCV 80.0 - 100.0 fL 90.8 91.2 91.8 92.3 91.3 MCH 26.0 - 34.0 pG 27.4 27.6 27.4 27.1 27.6 MCHC 30.5 - 36.0 g/dL 30.2 (L) 30.3 (L) 29.8 (L) 29.4 (L) 30.2 (L) RDW-CV 11.5 - 15.0 % 18.0 (H) 17.8 (H) 17.8 (H) 17.3 (H) 16.4 (H) Platelet Count 150 - 400 k/uL 309 293 258 244 201 MPV 9.0 - 12.7 fL 9.6 9.5 10.1 9.9 10.6 Neut% % 67.3 Abs Neut (ANC) 1.45 - 7.50 k/uL 5.57 Lymph% % 22.4 Abs Lymph 1.00 - 4.00 k/uL 1.85 [place]% % 7.4 Abs [place] <0.87 k/uL 0.61 Eosin% % 2.4 Abs Eosin <0.46 k/uL 0.20 Baso% % 0.5 Abs Baso <0.11 k/uL 0.04 Protein, Total 6.3 - 8.0 g/dL 8.9 (H) 8.0 7.7 Albumin 3.9 - 4.9 g/dL 3.2 (L) 3.1 (L) 2.6 (L) 3.3 (L) Calcium 8.5 - 10.2 mg/dL 8.7 8.6 7.8 (L) 8.1 (L) 8.8 Bilirubin, Total 0.2 - 1.3 mg/dL 0.5 0.7 0.3 Alkaline Phosphatase 32 - 117 U/L 82 74 69 AST 13 - 35 U/L 33 32 28 Glucose 74 - 99 mg/dL 87 92 81 97 78 BUN 7 - 21 mg/dL 36 (H) 34 (H) 32 (H) 25 (H) 19 Creatinine 0.58 - 0.96 mg/dL 1.31 (H) 1.25 (H) 1.13 (H) 0.89 0.97 (H) Sodium 136 - 144 mmol/L 133 (L) 134 (L) 132 (L) 135 (L) 137 Potassium 3.7 - 5.1 mmol/L 5.5 (H) 5.6 (H) 5.1 4.9 4.4 Chloride 97 - 105 mmol/L 98 99 99 102 100 CO2 22 - 30 mmol/L 25 25 24 26 24 Anion Gap 9 - 18 mmol/L 10 10 9 7 (L) 13 ALT 7 - 38 U/L 9 8 9 eGFR- 47 50 56 >60 >60 eGFR-All Other Races . 39 41 46 >60 55 Phosphorus 2.7 - 4.8 mg/dL 3.2 Absolute nRBC <0.01 k/uL <0.01 TSH 0.400 - 5.500 uU/mL 4.590 6.410 (H) Chief Compressor Station Engineer plan for next outreach: Will follow up Fri [facility] Maritza Howe RN Ambulatory Sap Consultant Internal Medicine [facility] June 28, 2018 Mani Newman MD 06/30/2018 8:13 AM Signed Received medication reconciliation fax from Visiting Nurse. Current Outpatient Prescriptions: Menthol-Zinc Oxide (CALMOSEPTINE) 0.44-20.6 % Apply 1 application to affected area once daily. Buttock. cephALEXin (KEFLEX) 500 mg capsule Take 1 capsule by mouth three times daily. nystatin (MYCOSTATIN) powder Apply 1 application to affected area daily at bedtime. Groin. dextran 70-hypromellose (TEARS NATURALE) dpet Use 1 Drop in both eyes as needed. omeprazole (PRILOSEC) 20 mg capsule Take 1 capsule by mouth once daily. warfarin (COUMADIN) 3 mg tablet Take 1 tablet by mouth daily as directed. Patient is taking 2mg Tuesday and and 3mg other days. (Patient taking differently: Take 3 mg by mouth once daily. ) gabapentin (NEURONTIN) 300 mg capsule Take 1 capsule by mouth twice daily for 180 days. aspirin, enteric coated (ASPIRIN, ENTERIC COATED) 81 mg EC tablet Take 81 mg by mouth every evening. levothyroxine (LEVOXYL) 100 mcg tablet Take 1 tablet by mouth once daily. Take on empty stomach. For Thyroid. No current facility-administered medications for this visit. ASSESSMENT/PLAN: 1. Heart failure with preserved ejection fraction (HCC) - ICD9: 428.9, ICD10: I50.30 (primary diagnosis) Start Lasix. - FUROSEMIDE 40 MG TABLET Signed Prescriptions Disp Refills furosemide (LASIX) 40 mg tablet 30 tablet 2 Sig: Take 1 tablet by mouth once daily. Order entered - please notify patient. 2. Lymphedema of both lower extremities - ICD9: 457.1, ICD10: I89.0 - FUROSEMIDE 40 MG TABLET - BASIC METABOLIC PNL 3. Anemia, unspecified type - ICD9: 285.9, ICD10: D64.9 - CBC + DIFF - IRON + TIBC - RETIC COUNT - VITAMIN B12 BLOOD - FOLATE SERUM Labs in 2 weeks, either here or thru HH. Mani Newman MD Allergies As of Date: 06/28/2018 (No Known Allergies) Date Reviewed: 06/27/2018 Reviewed by: Belle Ignacio RN - Fully Assessed Primary Visit Diagnosis:Heart failure with preserved ejection fraction (HCC) [I50.30] Other Visit Diagnoses:Lymphedema of both lower extremities [I89.0] Anemia, unspecified type [D64.9] Order(s):furosemide (LASIX) 40 mg tabletTake 1 tablet by mouth once daily.Disp: 30 tabletRfl: 2 CBC + DIFF [SQCBCDIF] Order #: [id number] FUTURE IRON + TIBC [SQIRON] Order #: [id number] FUTURE BASIC METABOLIC PNL [SQBMP] Order #: [id number] FUTURE RETIC COUNT [SQRETIC] Order #: [id number] FUTURE VITAMIN B12 BLOOD [SQB12] Order #: [id number] FUTURE FOLATE SERUM [SQSERFOL] Order #: [id number] FUTURE Prescriptions as of 06/28/2018 Sig: MENTHOL 0.44 %-ZINC OXIDE 20.* Apply 1 application to affect* CEPHALEXIN 500 MG CAPSULE Take 1 capsule by mouth three* NYSTATIN 100,000 UNIT/GRAM TO* Apply 1 application to affect* DEXTRAN 70-HYPROMELLOSE EYE D* Use 1 Drop in both eyes as ne* FUROSEMIDE 40 MG TABLET Take 1 tablet by mouth once d* OMEPRAZOLE 20 MG CAPSULE,LUIS MIGUEL* Take 1 capsule by mouth once * WARFARIN 3 MG TABLET Take 1 tablet by mouth daily * Patient taking differently: Take 3 mg by mouth once daily* GABAPENTIN 300 MG CAPSULE Take 1 capsule by mouth twice* ASPIRIN 81 MG TABLET,DELAYED * Take 81 mg by mouth every jean* LEVOTHYROXINE 100 MCG TABLET Take 1 tablet by mouth once d* Problem List As Of Date 06/28/2018 Noted Resolved Gastroesophageal reflux disease without esophag*INVALID FOR* Chronic atrial fibrillation (HCC) [I48.2] INVALID FOR* Priority: B More... Pure hypercholesterolemia [E78.00] Hypertension [I10] Priority: D Acquired hypothyroidism [E03.9] Priority: F CAD (coronary artery disease) [I25.10] More... 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 More... More... Respiratory failure with hypoxia (HCC) [J96.91] INVALID FOR*05/25/2018 Priority: Severe Heart failure with preserved ejection fraction *INVALID FOR* Priority: B More... Requires continuous at home supplemental oxygen*INVALID FOR*01/20/2018 More... Adjustment disorder with depressed mood [F43.21]INVALID FOR* Constipation [K59.00] INVALID FOR* Leg ulcer, right, with fat layer exposed (HCC) *INVALID FOR* Ulcer of ankle, right, with fat layer exposed (*INVALID FOR* Priority: A More... Venous stasis ulcer (HCC) [I83.009, L97.909] INVALID FOR* Priority: A Anticoagulation goal of INR 2 to 3 [Z51.81, Z79*INVALID FOR* Priority: C More... Class 2 obesity in adult [E66.9] INVALID FOR* Priority: M More... Hypotension due to hypovolemia [I95.89, E86.1] INVALID FOR*05/25/2018 Priority: D More... Pressure injury of skin, stage 2 [L89.92] INVALID FOR*06/27/2018 Priority: E More... H/O noncompliance with medical treatment, prese*INVALID FOR* Priority: E More... CKD (chronic kidney disease), stage III ([facility]) [*INVALID FOR* Priority: D Hyperkalemia [E87.5] INVALID FOR*05/24/2018 More... Peripheral vascular disease (HCC) [I73.9] INVALID FOR* Priority: C Sundowning [F05] INVALID FOR*05/25/2018 More... Prescriptions ordered this encounter Disp Refills Start End FUROSEMIDE 40 MG TABLET 30 t* 2 06/29/2018 Route: ORAL Sig: Take 1 tablet by mouth once daily. Medications Discontinued During This Encounter torsemide (DEMADEX) 20 mg tablet 30 t* 0 05/25/2018 06/29/2018 Route: ORAL Sig: Take 1 tablet by mouth once daily. Disc: Non-Compliance lisinopril (ZESTRIL) 2.5 mg tablet 30 t* 5 03/06/2018 06/29/2018 Route: ORAL Sig: Take 1 tablet by mouth every evening. Disc: Non-Compliance ergocalciferol, vitamin D2, (VITAMIN* 06/29/2018 Class: Historical Med Route: ORAL Sig: Take by mouth. Disc: Erroneous entry docusate sodium (COLACE) 100 mg caps* 30 c* 5 03/06/2018 06/29/2018 Route: ORAL Sig: Take 1 capsule by mouth once daily as needed for Constipation. Disc: Erroneous entry sodium hypochlorite (DAKIN'S SOLUTIO* 473 * 2 02/10/2018 06/29/2018 Sig: Dakin's moistened gauze packing every other day to wound for bacterial control. Disc: .All criteria met for discontinuation ASCORBIC ACID (VITAMIN C ORAL) 06/29/2018 Class: Historical Med Route: ORAL Sig: Take 1 tablet by mouth twice daily. Disc: Reason for discontinue is not on file. therapeutic multivitamin w/ iron (TH* 06/29/2018 Class: Historical Med Route: ORAL Sig: Take 1 tablet by mouth once daily. Disc: Reason for discontinue is not on file. Encounter Status:Closed by CAROLINA VEGA CMA on 06/30/18 PROGRESS Observed: 06/27/2018 Status: COMPLETED Source: VICTOR 8:10 PM [facility] [place] REPOSITORY O ID: [id number] Author: Maritza Tian [facility] Service: (none) Author Type: Registered Nurse Type: Progress Notes Filed: 06/28/2018 3:29 PM Note Text: PRIMARY CARE COORDINATION IN OFFICE VISIT WITH PCP Patient has been identified by name and date of . PCP Assessment/Plan: Reviewed PCP plan with patient using [employer] Pt to continue HH drsg changes with [facility] on alternate days. She says she has appt for hyperbaric therapy on 07/20 so will arrange transport there for that. Legs are grossly swollen bilaterally. She sleeps with them up in a recliner but not shoulder height and sits with them down part of the day. Likely impossible to to get them measurably decreased. PCC Plan of Care: Patient concerns: Needs Hyperbaric treatments. I explained we can provide transportation for her to go and she was very pleased. Patient goals: To get leg wounds under better control. PCC Interventions: Get med list from [facility] Arrange transportation and sooner appt with Hyperbaric Called [facility] RN to make sure they see pt- she states now she is not averse Next Office Visit: 08/21/2018 Plan For Next Call: Later in week with plan for visit and transportation. Maritza Howe RN Ambulatory Sap Consultant Internal Medicine [place] [facility] June 27, 2018 CBC Collected: 06/27/2018 Status: F Source: VICTOR 1:44 PM [facility] REPOSITORY TYPE CODE TESTS RESULT OUT OF REFERENCE UNITS RANGE LAB WBC 3.70-11.00 k/uL WBC 6.57 LAB RBC 3.90-5.20 m/uL Low RBC 3.23 LAB HGB 11.5-15.5 g/dL Low Hemoglobin 8.9 LAB HCT 36.0-46.0 % Low Hematocrit 29.5 LAB MCV 80.0-100.0 fL MCV 91.3 LAB MCH 26.0-34.0 pG MCH 27.6 LAB MCHC 30.5-36.0 g/dL Low MCHC 30.2 LAB RDWCV 11.5-15.0 % RDW-CV High 16.4 LAB PLTCT 150-400 k/uL Platelet Count 201 LAB MPV 9.0-12.7 fL MPV 10.6 LAB ABSNUC <0.01 k/uL Absolute nRBC <0.01 Performed By: #### CBC, PT, CMP, TSH #### [facility] [address] [place], [place] [address] #### KRYSTAL #### [facility] [address] [place] [address] [phone] PROTIME Collected: 06/27/2018 Status: F Source: VICTOR 1:44 PM [facility] [place] REPOSITORY TYPE CODE TESTS RESULT OUT OF RANGE REFERENCE UNITS LAB PSEC 9.7-13.0 sec High PT Sec 22.1 LAB INR 0.9-1.3 High PT INR 2.2 Result Comment: Vitamin K Antagonist (VKA) Therapeutic Range: INR 2 to 3 (Target INR of 2.5) Note: For patients treated with VKA drugs, such as warfarin, the [place] [employer] 2012 Guideline recommends a therapeutic INR range of 2 to 3 (target INR of 2.5). This recommendation includes high-risk patients with antiphospholipid syndrome with previous arterial or venous thromboembolism, current-generation mechanical or bioprosthetic aortic heart valve replacement. Note: Patients with mechanical aortic valve replacement and additional risk factors for thromboembolic events (atrial fibrillation, previous thromboembolism, LV dysfunction, hypercoagulable conditions) or an older generation mechanical AVR (i.e., ball in-Cage) or any mechanical MVR should have a INR therapeutic range of 2.5 to 3.5 (target INR of 3). Shweta SALOMON, et al. Chest 2012, 141:7S-47S Genevieve ESTRADA, et al. [facility] 2017, 70: 252-289 Performed By: #### CBC, PT, CMP, TSH #### [facility] [address] [place], [place] [address] #### KRYSTAL #### [facility] [address] [place] [address] [phone] COMP METABOLIC PANEL Collected: 06/27/2018 Status: F Source: VICTOR 1:44 PM [facility] [place] REPOSITORY TYPE CODE TESTS RESULT OUT OF REFERENCE UNITS RANGE LAB TP 6.3-8.0 g/dL Protein, Total 7.7 LAB ALB 3.9-4.9 g/dL Low Albumin 3.3 LAB CA 8.5-10.2 mg/dL Calcium, Total 8.8 LAB TBIL 0.2-1.3 mg/dL Bilirubin, Total 0.3 LAB ALKP 32-117 U/L Alkaline Phosphatase 69 LAB AST 13-35 U/L AST 28 LAB GLU 74-99 mg/dL Glucose 78 Result Comment: The [place] Diabetes Association (ADA) provides guidance for cutoff values for fasting glucose and random glucose. The ADA defines fasting as no caloric intake for at least 8 hours. Fas ting plasma glucose results between 100 to 125 mg/dL indicate increased risk for diabetes (prediabetes). Fasting plasma glucose results greater than or equal to 126 mg/dL meet the criteria for diagnosis of diabetes. In the absence of unequivocal hyperglycemia, results should be confirmed by repeat testing. In a patient with classic symptoms of hyperglycemia or hyperglycemic crisis, random plasma glucose results greater than or equal to 200 mg/dL meet the criteria for diagnosis of diabetes. Reference: Standards of Medical Care in Diabetes 2016, [place] [employer] Association. Diabetes Care. 2016.39(Suppl 1). LAB BUN 7-21 mg/dL BUN 19 LAB CRET 0.58-0.96 mg/dL Creatinine High 0.97 LAB NA 136-144 mmol/L Sodium 137 LAB K 3.7-5.1 mmol/L Potassium 4.4 LAB CL 97-105 mmol/L Chloride 100 LAB CO2 22-30 mmol/L CO2 24 LAB AGAP 9-18 mmol/L Anion Gap 13 LAB ALT 7-38 U/L ALT 9 LAB GFRAA eGFR- Amer. >60 LAB GFRNAA . eGFR-All Other Races 55 Result Comment: eGFR (Estimated GFR) Units of measure: mL/min/1.73 meters squared eGFR is derived from the reexpressed MDRD Study equation using the following parameters: serum creatinine, age, gender and race. The creatinine assay has been calibrated to be traceable to IDMS. An eGFR <60 mL/min/1.73m2 for >3 months is consistent with chronic kidney disease. Refer to KDOQI guidelines for clinical interpretation. In patients with unstable renal function, e.g. those with acute kidney injury, the eGFR may not accurately reflect actual GFR. Performed By: #### CBC, PT, CMP, TSH #### [facility] [address] [place] [address] #### KRYSTAL #### [facility] [address] [place] [address] [phone] TSH Collected: 06/27/2018 Status: F Source: VICTOR 1:44 PM [facility] REPOSITORY TYPE CODE TESTS RESULT OUT OF RANGE REFERENCE UNITS LAB TSH 0.400-5.500 uU/mL High TSH 6.410 Performed By: #### CBC, PT, CMP, TSH #### [facility] [address] [place] [id number] #### KRYSTAL #### [facility] [address] [place] [address] [phone] GABAPENTIN Collected: 06/27/2018 Status: F Source: VICTOR 1:44 PM [facility] REPOSITORY TYPE CODE TESTS RESULT OUT OF REFERENCE UNITS RANGE LAB KRYSTAL 2.0-20.0 ug/mL Gabapentin 6.8 Result Comment: (NOTE) INTERPRETIVE INFORMATION: Gabapentin Therapeutic Range: 2 - 20 ug/mL Toxic: Not well established Pharmacokinetics of gabapentin vary widely among patients, particularly those with compromised renal function. Adverse effects may include somnolence, dizziness, ataxia, and fatigue. Performed by [facility], [address] [place] [id number] [email or web address], Christiano Hussein MD, Lab. Director Performed By: #### CBC, PT, CMP, TSH #### [facility] [address] [place] [id number] #### KRYSTAL #### [facility] [address] [place] [phone] PROGRESS Observed: 06/27/2018 Status: COMPLETED Source: VICTOR 1:17 PM [facility] REPOSITORY HNO ID: [id number] Author: Mani Newman Service: (none) Author Type: Physician Type: Progress Notes Filed: 06/27/2018 1:34 PM Note Text: This note was created using NoteWriter. Subjective Rosa Beltran was here for follow up. She was admitted from the hospital to TCU for non healing venous stasis ulcer of the right leg. She was then transferred to TCU for ongoing wound care and rehabilitation. It was difficult to corroborate, but patient was switched from Cipro and Zyvox to cephalexin due to cost. laboratory coordinator was here and trying to coordinate ongoing wound care. She was seen last week. ACTIVE PROBLEM LIST Gastroesophageal Reflux Disease Without Esophagitis Chronic Atrial Fibrillation (Hcc) Pure Hypercholesterolemia Hypertension Acquired Hypothyroidism Cad (Coronary Artery Disease) Primary Osteoarthritis Involving Multiple Joints Lymphedema of Both Lower Extremities Mouth Dryness Muscular Weakness Dorsalgia Stented Coronary Artery Gastric Bypass Status for Obesity Bilateral Leg Ulcer (Hcc) Polyneuropathy (Hcc) Heart Failure With Preserved Ejection Fraction (Hcc) Adjustment Disorder With Depressed Mood Constipation Leg Ulcer, Right, With Fat Layer Exposed (Hcc) Ulcer of Ankle, Right, With Fat Layer Exposed (Hcc) Venous Stasis Ulcer (Hcc) Anticoagulation Goal of Inr 2 to 3 Class 2 Obesity in Adult H/O Noncompliance With Medical Treatment, Presenting Hazards to Health Ckd (Chronic Kidney Disease), Stage Iii (Hcc) Peripheral Vascular Disease (Hcc) Current Outpatient Prescriptions: ergocalciferol, vitamin D2, (VITAMIN D2 ORAL) Take by mouth. lisinopril (ZESTRIL) 2.5 mg tablet Take 1 tablet by mouth every evening. omeprazole (PRILOSEC) 20 mg capsule Take 1 capsule by mouth once daily. docusate sodium (COLACE) 100 mg capsule Take 1 capsule by mouth once daily as needed for Constipation. sodium hypochlorite (DAKIN'S SOLUTION) 0.125 % soln Dakin's moistened gauze packing every other day to wound for bacterial control. warfarin (COUMADIN) 3 mg tablet Take 1 tablet by mouth daily as directed. Patient is taking 2mg Tuesday and and 3mg other days. (Patient taking differently: Take 3 mg by mouth once daily. ) gabapentin (NEURONTIN) 300 mg capsule Take 1 capsule by mouth twice daily for 180 days. ASCORBIC ACID (VITAMIN C ORAL) Take 1 tablet by mouth twice daily. aspirin, enteric coated (ASPIRIN, ENTERIC COATED) 81 mg EC tablet Take 81 mg by mouth every evening. therapeutic multivitamin w/ iron (THERAGRAN-M) 9 mg iron-400 mcg tablet Take 1 tablet by mouth once daily. levothyroxine (LEVOXYL) 100 mcg tablet Take 1 tablet by mouth once daily. Take on empty stomach. For Thyroid. torsemide (DEMADEX) 20 mg tablet Take 1 tablet by mouth once daily. No current facility-administered medications for this visit. Review of Systems HENT: Positive for mouth sores. Eyes: Negative. Respiratory: Negative. Cardiovascular: Positive for leg swelling. Negative for chest pain and palpitations. Gastrointestinal: Positive for diarrhea and vomiting. Negative for abdominal distention, abdominal pain, blood in stool and nausea. Genitourinary: Negative. Musculoskeletal: Positive for arthralgias and gait problem. Skin: Positive for wound. Neurological: Positive for weakness. Objective BP 116/54 (BP Site: Right Arm, BP Position: Sitting, BP Cuff Size: Regular Adult) Pulse 68 Temp 36.3 ?C (97.4 ?F) (Right Tympanic) Resp 20 Wt 97.1 kg (214 lb) SpO2 94% BMI 36.73 kg/m? Physical Exam Constitutional: No distress. HENT: Head: Atraumatic. Eyes: Pupils are equal, round, and reactive to light. Conjunctivae and EOM are normal. Neck: No JVD present. No tracheal deviation present. Cardiovascular: Normal rate, S1 normal and S2 normal. An irregular rhythm present. Exam reveals decreased pulses. Exam reveals no gallop. No murmur heard. Pulmonary/Chest: She has decreased breath sounds in the right lower field and the left lower field. She has no wheezes. She has no rhonchi. She has rales in the right lower field and the left lower field. Abdominal: Soft. She exhibits no distension. There is no tenderness. Musculoskeletal: She exhibits edema. Legs wrapped in compression. 3+ edema. Neurological: She is alert. Gait abnormal. Wheelchair bound. Able to stand. Skin: No decubitus ulcer of seat areas. Assessment and Plan 1. Ulcer of ankle, right, with fat layer exposed (HCC) - ICD9: 707.13, ICD10: L97.312 (primary diagnosis) Continue wound care. Consider hyperbaric oxygen. 2. Ulcers of both lower extremities, unspecified ulcer stage (HCC) - ICD9: 707.10, ICD10: L97.919, L97.929 Continue wound care. Consider hyperbaric oxygen. 3. Lymphedema of both lower extremities - ICD9: 457.1, ICD10: I89.0 Stable. 4. Heart failure with preserved ejection fraction (HCC) - ICD9: 428.9, ICD10: I50.30 Stable. - COMP METABOLIC PANEL 5. Chronic atrial fibrillation (HCC) - ICD9: 427.31, ICD10: I48.2 INR today. - CBC - PROTHROMBIN TIME/PT 6. Muscular weakness - ICD9: 728.87, ICD10: M62.81 Physical therapy encouraged thru home. 7. CKD (chronic kidney disease), stage III (HCC) - ICD9: 585.3, ICD10: N18.3 Monitor. - COMP METABOLIC PANEL 8. Polyneuropathy (HCC) - ICD9: 356.9, ICD10: G62.9 Check level to evaluate compliance. - GABAPENTIN/NEURONTIN 9. Acquired hypothyroidism - ICD9: 244.9, ICD10: E03.9 - continue current dose of Synthroid - TSH BLD 10. Peripheral vascular disease (HCC) - ICD9: 443.9, ICD10: I73.9 Recheck periodically. Mani Newman MD PROGRESS Observed: 06/27/2018 Status: COMPLETED Source: VICTOR 1:10 PM [facility] [place] REPOSITORY HNO ID: [id number] Author: Ty Beckman Service: (none) Author Type: Physician Type: Progress Notes Filed: 06/27/2018 1:36 PM Note Text: Ty Beckman DPM Department of Podiatry [address] [facility] [address] Dept: [phone] Dept Nail Care SUBJECTIVE: Follow up office visit: This 82 year old female presents to clinic c/o painful toenails. Patient states that the nails are especially painful with shoe gear and pressure. Patient is not a diabetic. Patient denies claudication type symptoms when walking. She has bilateral leg ulcers that she sees plastic surgery for. No other pedal complaints at this time. No change in medications or medical history since last visit. Ty Beckman DPM OBJECTIVE: Vasc: Skin temperature is cool to toes b/l There is + edema or varicosities noted. Hair growth decreased. Neuro: Protective sensation is decreased to the foot and toes when tested with the 5.07 SWM bilateral. Derm: Inspection and palpation performed. Nails 1-5 right and 2-5 left are discolored-yellow, thick, crumbly, dystrophic and with subungal debris. Skin is of normal turgor and texture. Hyperkeratosis not present. ASSESSMENT: (B35.1) Onychomycosis (primary encounter diagnosis) Plan: 1. Patient was seen and evaluated. 2. Nails 1-5 right and 2-5 left were debrided in length and thickness. 3. Wound care of legs to be cared for by wound center. (M79.675) Pain in toe of left foot Plan: same as above (M79.674) Pain in toe of right foot Plan: same as above Ty Beckman DPM CNOV Observed: 06/27/2018 Status: COMPLETED Source: SALAZ[place] 12:40 PM [facility] REPOSITORY Office Visit (PODIWS) ROSA BELTRAN ([id number]) 1935 F Date Time Provider Department 06/27/18 12:40 PM TY BECKMAN PODIWS During your visit today, we recorded the following information about you: Ty Beckman DPM 06/27/2018 1:36 PM Signed Ty Beckman DPM Department of Podiatry [address] [facility] [address] Dept: [phone] Dept Nail Care SUBJECTIVE: Follow up office visit: This 82 year old female presents to clinic c/o painful toenails. Patient states that the nails are especially painful with shoe gear and pressure. Patient is not a diabetic. Patient denies claudication type symptoms when walking. She has bilateral leg ulcers that she sees plastic surgery for. No other pedal complaints at this time. No change in medications or medical history since last visit. Ty Beckman DPM OBJECTIVE: Vasc: Skin temperature is cool to toes b/l There is + edema or varicosities noted. Hair growth decreased. Neuro: Protective sensation is decreased to the foot and toes when tested with the 5.07 SWM bilateral. Derm: Inspection and palpation performed. Nails 1-5 right and 2-5 left are discolored-yellow, thick, crumbly, dystrophic and with subungal debris. Skin is of normal turgor and texture. Hyperkeratosis not present. ASSESSMENT: (B35.1) Onychomycosis (primary encounter diagnosis) Plan: 1. Patient was seen and evaluated. 2. Nails 1-5 right and 2-5 left were debrided in length and thickness. 3. Wound care of legs to be cared for by wound center. (M79.087) Pain in toe of left foot Plan: same as above (M79.674) Pain in toe of right foot Plan: same as above Ty Beckman DPM Referring Provider: SELF [200] Allergies As of Date: 06/27/2018 (No Known Allergies) Date Reviewed: 06/27/2018 Reviewed by: Belle Ignacio RN - Fully Assessed Reason for Visit: Established Patient [175] Cmt: nail care Primary Visit Diagnosis:Onychomycosis [B35.1] Other Visit Diagnoses:Pain in toe of left foot [M79.675] Pain in toe of right foot [M79.674] Prescriptions as of 06/27/2018 Sig: TORSEMIDE 20 MG TABLET Take 1 tablet by mouth once d* VITAMIN D2 ORAL Take by mouth. LISINOPRIL 2.5 MG TABLET Take 1 tablet by mouth every * OMEPRAZOLE 20 MG CAPSULE,LUIS MIGUEL* Take 1 capsule by mouth once * DOCUSATE SODIUM 100 MG CAPSULE Take 1 capsule by mouth once * SODIUM HYPOCHLORITE 0.125 % S* Dakin's moistened gauze packi* WARFARIN 3 MG TABLET Take 1 tablet by mouth daily * Patient taking differently: Take 3 mg by mouth once daily* GABAPENTIN 300 MG CAPSULE Take 1 capsule by mouth twice* VITAMIN C ORAL Take 1 tablet by mouth twice * ASPIRIN 81 MG TABLET,DELAYED * Take 81 mg by mouth every jean* MULTIVITAMIN-IRON 9 MG-FOLIC * Take 1 tablet by mouth once d* LEVOTHYROXINE 100 MCG TABLET Take 1 tablet by mouth once d* Problem List As Of Date 06/27/2018 Noted Resolved Gastroesophageal reflux disease without esophag*INVALID FOR* Chronic atrial fibrillation (HCC) [I48.2] INVALID FOR* Priority: B More... Pure hypercholesterolemia [E78.00] Hypertension [I10] Priority: D Acquired hypothyroidism [E03.9] Priority: F CAD (coronary artery disease) [I25.10] More... 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 More... More... Respiratory failure with hypoxia (HCC) [J96.91] INVALID FOR*05/25/2018 Priority: Severe Heart failure with preserved ejection fraction *INVALID FOR* Priority: B More... Requires continuous at home supplemental oxygen*INVALID FOR*01/20/2018 More... Adjustment disorder with depressed mood [F43.21]INVALID FOR* Constipation [K59.00] INVALID FOR* Leg ulcer, right, with fat layer exposed (HCC) *INVALID FOR* Ulcer of ankle, right, with fat layer exposed (*INVALID FOR* Priority: A More... Venous stasis ulcer (HCC) [I83.009, L97.909] INVALID FOR* Priority: A Anticoagulation goal of INR 2 to 3 [Z51.81, Z79*INVALID FOR* Priority: C More... Class 2 obesity in adult [E66.9] INVALID FOR* Priority: M More... Hypotension due to hypovolemia [I95.89, E86.1] INVALID FOR*05/25/2018 Priority: D More... Pressure injury of skin, stage 2 [L89.92] INVALID FOR*06/27/2018 Priority: E More... H/O noncompliance with medical treatment, prese*INVALID FOR* Priority: E More... CKD (chronic kidney disease), stage III ([facility]) [*INVALID FOR* Priority: D Hyperkalemia [E87.5] INVALID FOR*05/24/2018 More... Peripheral vascular disease (HCC) [I73.9] INVALID FOR* Priority: C Sundowning [F05] INVALID FOR*05/25/2018 More... Disposition: Return in about 3 weeks (around 07/18/2018) for nail care. Follow-up and Disposition History Recorded Encounter Status:Closed by TY BECKMAN DPM on 06/27/18 CNOV Observed: 06/27/2018 Status: COMPLETED Source: [facility] 11:40 AM [facility] REPOSITORY Office Visit (INTMWS) ROSA BELTRAN ([id number]) 1935 F Date Time Provider Department 06/27/18 11:40 AM MANI NEWMAN INTTulioWS During your visit today, we recorded the following information about you: Temperature Pulse Respiration Blood pressure 97.4 degrees 68/minute 20/minute 116/54 Weight 97.1 kg Mani Newman MD 06/27/2018 1:34 PM Signed This note was created using NoteWriter. Subjective Rosa Desai Devin was here for follow up. She was admitted from the hospital to TCU for non healing venous stasis ulcer of the right leg. She was then transferred to TCU for ongoing wound care and rehabilitation. It was difficult to corroborate, but patient was switched from Cipro and Zyvox to cephalexin due to cost. laboratory coordinator was here and trying to coordinate ongoing wound care. She was seen last week. ACTIVE PROBLEM LIST Gastroesophageal Reflux Disease Without Esophagitis Chronic Atrial Fibrillation (Hcc) Pure Hypercholesterolemia Hypertension Acquired Hypothyroidism Cad (Coronary Artery Disease) Primary Osteoarthritis Involving Multiple Joints Lymphedema of Both Lower Extremities Mouth Dryness Muscular Weakness Dorsalgia Stented Coronary Artery Gastric Bypass Status for Obesity Bilateral Leg Ulcer (Hcc) Polyneuropathy (Hcc) Heart Failure With Preserved Ejection Fraction (Hcc) Adjustment Disorder With Depressed Mood Constipation Leg Ulcer, Right, With Fat Layer Exposed (Hcc) Ulcer of Ankle, Right, With Fat Layer Exposed (Hcc) Venous Stasis Ulcer (Hcc) Anticoagulation Goal of Inr 2 to 3 Class 2 Obesity in Adult H/O Noncompliance With Medical Treatment, Presenting Hazards to Health Ckd (Chronic Kidney Disease), Stage Iii (Hcc) Peripheral Vascular Disease (Hcc) Current Outpatient Prescriptions: ergocalciferol, vitamin D2, (VITAMIN D2 ORAL) Take by mouth. lisinopril (ZESTRIL) 2.5 mg tablet Take 1 tablet by mouth every evening. omeprazole (PRILOSEC) 20 mg capsule Take 1 capsule by mouth once daily. docusate sodium (COLACE) 100 mg capsule Take 1 capsule by mouth once daily as needed for Constipation. sodium hypochlorite (DAKIN'S SOLUTION) 0.125 % soln Dakin's moistened gauze packing every other day to wound for bacterial control. warfarin (COUMADIN) 3 mg tablet Take 1 tablet by mouth daily as directed. Patient is taking 2mg Tuesday and and 3mg other days. (Patient taking differently: Take 3 mg by mouth once daily. ) gabapentin (NEURONTIN) 300 mg capsule Take 1 capsule by mouth twice daily for 180 days. ASCORBIC ACID (VITAMIN C ORAL) Take 1 tablet by mouth twice daily. aspirin, enteric coated (ASPIRIN, ENTERIC COATED) 81 mg EC tablet Take 81 mg by mouth every evening. therapeutic multivitamin w/ iron (THERAGRAN-M) 9 mg iron-400 mcg tablet Take 1 tablet by mouth once daily. levothyroxine (LEVOXYL) 100 mcg tablet Take 1 tablet by mouth once daily. Take on empty stomach. For Thyroid. torsemide (DEMADEX) 20 mg tablet Take 1 tablet by mouth once daily. No current facility-administered medications for this visit. Review of Systems HENT: Positive for mouth sores. Eyes: Negative. Respiratory: Negative. Cardiovascular: Positive for leg swelling. Negative for chest pain and palpitations. Gastrointestinal: Positive for diarrhea and vomiting. Negative for abdominal distention, abdominal pain, blood in stool and nausea. Genitourinary: Negative. Musculoskeletal: Positive for arthralgias and gait problem. Skin: Positive for wound. Neurological: Positive for weakness. Objective BP 116/54 (BP Site: Right Arm, BP Position: Sitting, BP Cuff Size: Regular Adult) Pulse 68 Temp 36.3 ?C (97.4 ?F) (Right Tympanic) Resp 20 Wt 97.1 kg (214 lb) SpO2 94% BMI 36.73 kg/m? Physical Exam Constitutional: No distress. HENT: Head: Atraumatic. Eyes: Pupils are equal, round, and reactive to light. Conjunctivae and EOM are normal. Neck: No JVD present. No tracheal deviation present. Cardiovascular: Normal rate, S1 normal and S2 normal. An irregular rhythm present. Exam reveals decreased pulses. Exam reveals no gallop. No murmur heard. Pulmonary/Chest: She has decreased breath sounds in the right lower field and the left lower field. She has no wheezes. She has no rhonchi. She has rales in the right lower field and the left lower field. Abdominal: Soft. She exhibits no distension. There is no tenderness. Musculoskeletal: She exhibits edema. Legs wrapped in compression. 3+ edema. Neurological: She is alert. Gait abnormal. Wheelchair bound. Able to stand. Skin: No decubitus ulcer of seat areas. Assessment and Plan 1. Ulcer of ankle, right, with fat layer exposed (HCC) - ICD9: 707.13, ICD10: L97.312 (primary diagnosis) Continue wound care. Consider hyperbaric oxygen. 2. Ulcers of both lower extremities, unspecified ulcer stage (HCC) - ICD9: 707.10, ICD10: L97.919, L97.929 Continue wound care. Consider hyperbaric oxygen. 3. Lymphedema of both lower extremities - ICD9: 457.1, ICD10: I89.0 Stable. 4. Heart failure with preserved ejection fraction (HCC) - ICD9: 428.9, ICD10: I50.30 Stable. - COMP METABOLIC PANEL 5. Chronic atrial fibrillation (HCC) - ICD9: 427.31, ICD10: I48.2 INR today. - CBC - PROTHROMBIN TIME/PT 6. Muscular weakness - ICD9: 728.87, ICD10: M62.81 Physical therapy encouraged thru home. 7. CKD (chronic kidney disease), stage III (HCC) - ICD9: 585.3, ICD10: N18.3 Monitor. - COMP METABOLIC PANEL 8. Polyneuropathy (HCC) - ICD9: 356.9, ICD10: G62.9 Check level to evaluate compliance. - GABAPENTIN/NEURONTIN 9. Acquired hypothyroidism - ICD9: 244.9, ICD10: E03.9 - continue current dose of Synthroid - TSH BLD 10. Peripheral vascular disease (HCC) - ICD9: 443.9, ICD10: I73.9 Recheck periodically. Mani Newman MD Referring Provider: BRODY SWEET CHI [[id number]] Allergies As of Date: 06/27/2018 (No Known Allergies) Date Reviewed: 06/27/2018 Reviewed by: Belle Ignacio RN - Fully Assessed Reason for Visit: Hospital F/U [57] Primary Visit Diagnosis:Ulcer of ankle, right, with fat layer exposed (HCC) [L97.312] Other Visit Diagnoses:Ulcers of both lower extremities, unspecified ulcer stage (HCC) [L97.919, L97.929] Lymphedema of both lower extremities [I89.0] Heart failure with preserved ejection fraction (HCC) [I50.30] Chronic atrial fibrillation (HCC) [I48.2] Muscular weakness [M62.81] CKD (chronic kidney disease), stage III (HCC) [N18.3] Polyneuropathy (HCC) [G62.9] Acquired hypothyroidism [E03.9] Peripheral vascular disease (HCC) [I73.9] Order(s):CBC [SQCBC] Order #: [id number] FUTURE COMP METABOLIC PANEL [SQCMP] Order #: [id number] FUTURE TSH BLD [SQTSH] Order #: [id number] FUTURE GABAPENTIN/NEURONTIN [SQGABA] Order #: [id number] FUTURE PROTHROMBIN TIME/PT [SQPT] Order #: [id number] FUTURE Prescriptions as of 06/27/2018 Sig: VITAMIN D2 ORAL Take by mouth. LISINOPRIL 2.5 MG TABLET Take 1 tablet by mouth every * OMEPRAZOLE 20 MG CAPSULE,LUIS MIGUEL* Take 1 capsule by mouth once * DOCUSATE SODIUM 100 MG CAPSULE Take 1 capsule by mouth once * SODIUM HYPOCHLORITE 0.125 % S* Dakin's moistened gauze packi* WARFARIN 3 MG TABLET Take 1 tablet by mouth daily * Patient taking differently: Take 3 mg by mouth once daily* GABAPENTIN 300 MG CAPSULE Take 1 capsule by mouth twice* VITAMIN C ORAL Take 1 tablet by mouth twice * ASPIRIN 81 MG TABLET,DELAYED * Take 81 mg by mouth every jean* MULTIVITAMIN-IRON 9 MG-FOLIC * Take 1 tablet by mouth once d* LEVOTHYROXINE 100 MCG TABLET Take 1 tablet by mouth once d* TORSEMIDE 20 MG TABLET Take 1 tablet by mouth once d* Problem List As Of Date 06/27/2018 Noted Resolved Gastroesophageal reflux disease without esophag*INVALID FOR* Chronic atrial fibrillation (HCC) [I48.2] INVALID FOR* Priority: B More... Pure hypercholesterolemia [E78.00] Hypertension [I10] Priority: D Acquired hypothyroidism [E03.9] Priority: F CAD (coronary artery disease) [I25.10] More... 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 More... More... Respiratory failure with hypoxia (HCC) [J96.91] INVALID FOR*05/25/2018 Priority: Severe Heart failure with preserved ejection fraction *INVALID FOR* Priority: B More... Requires continuous at home supplemental oxygen*INVALID FOR*01/20/2018 More... Adjustment disorder with depressed mood [F43.21]INVALID FOR* Constipation [K59.00] INVALID FOR* Leg ulcer, right, with fat layer exposed (HCC) *INVALID FOR* Ulcer of ankle, right, with fat layer exposed (*INVALID FOR* Priority: A More... Venous stasis ulcer (HCC) [I83.009, L97.909] INVALID FOR* Priority: A Anticoagulation goal of INR 2 to 3 [Z51.81, Z79*INVALID FOR* Priority: C More... Class 2 obesity in adult [E66.9] INVALID FOR* Priority: M More... Hypotension due to hypovolemia [I95.89, E86.1] INVALID FOR*05/25/2018 Priority: D More... Pressure injury of skin, stage 2 [L89.92] INVALID FOR*06/27/2018 Priority: E More... H/O noncompliance with medical treatment, prese*INVALID FOR* Priority: E More... CKD (chronic kidney disease), stage III (HCC) [*INVALID FOR* Priority: D Hyperkalemia [E87.5] INVALID FOR*05/24/2018 More... Peripheral vascular disease (HCC) [I73.9] INVALID FOR* Priority: C Sundowning [F05] INVALID FOR*05/25/2018 More... Medications Discontinued During This Encounter silver sulfADIAZINE (SILVADENE) 1 % * 50 g 1 11/04/2017 06/27/2018 Sig: Apply to leg wounds as directed. Disc: Reason for discontinue is not on file. acetaminophen (TYLENOL) 500 mg tablet 06/27/2018 Class: Historical Med Route: ORAL Sig: Take 1,000 mg by mouth every 8 hours as needed. Disc: Reason for discontinue is not on file. COMPOUNDED PRESCRIPTION 14 E* 0 01/13/2017 06/27/2018 Class: Print RX Sig: Calcium Alginate 4x4 Dressing, change daily Dx: Blister left leg with infection S80.822A, L08.9; Lymphedema I89.0. Wound dimensions: 4 x 3 cm Disc: Reason for discontinue is not on file. Disposition: Return in about 2 months (around 08/27/2018). Follow-up and Disposition History Recorded Encounter Status:Closed by MANI NEWMAN MD on 06/27/18 LOITOUTREACH Observed: 06/27/2018 Status: COMPLETED Source: [facility] 12:00 AM [facility] REPOSITORY Patient Outreach (INTMWS) ROSA BELTRAN ([id number]) 1935 F Date Time Provider Department 06/27/18 MARITZA RUSSELL During your visit today, we recorded the following information about you: Maritza Tian RN 06/28/2018 3:29 PM Signed PRIMARY CARE COORDINATION IN OFFICE VISIT WITH PCP Patient has been identified by name and date of . PCP Assessment/Plan: Reviewed PCP plan with patient using [facility] Pt to continue HH drsg changes with [facility] on alternate days. She says she has appt for hyperbaric therapy on 07/20 so will arrange transport there for that. Legs are grossly swollen bilaterally. She sleeps with them up in a recliner but not shoulder height and sits with them down part of the day. Likely impossible to to get them measurably decreased. PCC Plan of Care: Patient concerns: Needs Hyperbaric treatments. I explained we can provide transportation for her to go and she was very pleased. Patient goals: To get leg wounds under better control. PCC Interventions: Get med list from [facility] Arrange transportation and sooner appt with Hyperbaric Called [facility] RN to make sure they see pt- she states now she is not averse Next Office Visit: 08/21/2018 Plan For Next Call: Later in week with plan for visit and transportation. Maritza Howe military analyst [employer] [facility] June 27, 2018 Maritza Tian RN 06/28/2018 3:29 PM Signed Called [facility] Main lab about results not being completed yet. Rep states they were not signed into lab until midnight and they are running behind with hospital pts taking priority and should be resulted this afternoon. Her Hgb is running lower over past month. Can't find any Hx of scoping. Component Latest Ref Rng AND Units 05/23/2018 05/24/2018 05/25/2018 06/27/2018 WBC 3.70 - 11.00 k/uL 9.49 6.97 6.44 6.57 RBC 3.90 - 5.20 m/uL 4.09 3.43 (L) 3.50 (L) 3.23 (L) Hemoglobin 11.5 - 15.5 g/dL 11.3 (L) 9.4 (L) 9.5 (L) 8.9 (L) Hematocrit 36.0 - 46.0 % 37.3 31.5 (L) 32.3 (L) 29.5 (L) MCV 80.0 - 100.0 fL 91.2 91.8 92.3 91.3 MCH 26.0 - 34.0 pG 27.6 27.4 27.1 27.6 MCHC 30.5 - 36.0 g/dL 30.3 (L) 29.8 (L) 29.4 (L) 30.2 (L) RDW-CV 11.5 - 15.0 % 17.8 (H) 17.8 (H) 17.3 (H) 16.4 (H) Platelet Count 150 - 400 k/uL 293 258 244 201 MPV 9.0 - 12.7 fL 9.5 10.1 9.9 10.6 Absolute nRBC <0.01 k/uL <0.01 Allergies As of Date: 06/27/2018 (No Known Allergies) Date Reviewed: 06/27/2018 Reviewed by: Belle Ignacio RN - Fully Assessed Prescriptions as of 06/27/2018 Sig: TORSEMIDE 20 MG TABLET Take 1 tablet by mouth once d* VITAMIN D2 ORAL Take by mouth. LISINOPRIL 2.5 MG TABLET Take 1 tablet by mouth every * OMEPRAZOLE 20 MG CAPSULE,LUIS MIGUEL* Take 1 capsule by mouth once * DOCUSATE SODIUM 100 MG CAPSULE Take 1 capsule by mouth once * SODIUM HYPOCHLORITE 0.125 % S* Dakin's moistened gauze packi* WARFARIN 3 MG TABLET Take 1 tablet by mouth daily * Patient taking differently: Take 3 mg by mouth once daily* GABAPENTIN 300 MG CAPSULE Take 1 capsule by mouth twice* VITAMIN C ORAL Take 1 tablet by mouth twice * ASPIRIN 81 MG TABLET,DELAYED * Take 81 mg by mouth every jean* MULTIVITAMIN-IRON 9 MG-FOLIC * Take 1 tablet by mouth once d* LEVOTHYROXINE 100 MCG TABLET Take 1 tablet by mouth once d* Problem List As Of Date 06/27/2018 Noted Resolved Gastroesophageal reflux disease without esophag*INVALID FOR* Chronic atrial fibrillation (HCC) [I48.2] INVALID FOR* Priority: B More... Pure hypercholesterolemia [E78.00] Hypertension [I10] Priority: D Acquired hypothyroidism [E03.9] Priority: F CAD (coronary artery disease) [I25.10] More... 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 More... More... Respiratory failure with hypoxia (HCC) [J96.91] INVALID FOR*05/25/2018 Priority: Severe Heart failure with preserved ejection fraction *INVALID FOR* Priority: B More... Requires continuous at home supplemental oxygen*INVALID FOR*01/20/2018 More... Adjustment disorder with depressed mood [F43.21]INVALID FOR* Constipation [K59.00] INVALID FOR* Leg ulcer, right, with fat layer exposed (HCC) *INVALID FOR* Ulcer of ankle, right, with fat layer exposed (*INVALID FOR* Priority: A More... Venous stasis ulcer (HCC) [I83.009, L97.909] INVALID FOR* Priority: A Anticoagulation goal of INR 2 to 3 [Z51.81, Z79*INVALID FOR* Priority: C More... Class 2 obesity in adult [E66.9] INVALID FOR* Priority: M More... Hypotension due to hypovolemia [I95.89, E86.1] INVALID FOR*05/25/2018 Priority: D More... Pressure injury of skin, stage 2 [L89.92] INVALID FOR*06/27/2018 Priority: E More... H/O noncompliance with medical treatment, prese*INVALID FOR* Priority: E More... CKD (chronic kidney disease), stage III (HCC) [*INVALID FOR* Priority: D Hyperkalemia [E87.5] INVALID FOR*05/24/2018 More... Peripheral vascular disease (HCC) [I73.9] INVALID FOR* Priority: C Sundowning [F05] INVALID FOR*05/25/2018 More... Encounter Status:Closed by MARITZA HOWE on 06/28/18 PROGRESS Observed: 06/22/2018 Status: COMPLETED Source: [facility] 10:52 AM [facility] REPOSITORY HNO ID: [id number] Author: Tiffanie Hammer) ELENA Humphrey Service: (none) Author Type: Registered Nurse Type: Progress Notes Filed: 07/03/2018 8:57 PM Note Text: UNIVERSAL PROTOCOL / SAFETY CHECKLIST Procedure to be performed: Sharp debridement of bilateral lower leg wounds Sign in Communication: 8010 Time Out: Team Confirms the Correct Patient, Correct Procedure, Correct Site and Site Marking, Correct Position (if applicable), Prep and Dry Time (if applicable). Time: 1100 Affirmation of Time Out: Yes Sign Out Discussion: Procedure completed and the patient tolerated it well without complications. Tiffanie Humphrey RN PROGRESS Observed: 06/22/2018 Status: COMPLETED Source: VICTOR 10:00 AM [facility] REPOSITORY HNO ID: [id number] Author: Luis Simons Service: (none) Author Type: Nurse Practitioner Type: Progress Notes Filed: 09/13/2018 12:41 PM Note Text: DATE OF VISIT: 06/22/2018 REASON FOR VISIT: Non-healing lower extremity wound. HISTORY OF PRESENT ILLNESS: Rosa Beltran is a 81 year old female who presents to the [facility] for further evaluation and management of a non-healing leg wound. She has a past medical history significant for atrial fibrillation on Coumadin, coronary artery disease,?COPD, hypertension, dyslipidemia and CHF.?Patient has felt mildly short of breath over the past month. ?Increase with exertion and lying flat. She is on 40 mg of Lasix twice a day. She still is urinating appropriately. She has not had any chest pain or palpitations. ?Fever, chills, or sweats. ?No productive cough. ?No wheezing. Upon taking patients vitals, her SPO2 level was from 76% - 85%. Patient stated she had shortness of breath. She was unable to finish her sentences without catching her breath. The tips of her fingers were cyanotic. Patient was sent to the ER for further evaluation. Tiffanie BARBOSA wheeled patient to the ER. INTERVAL HISTORY: Patient was sent tot he ED during her previous visit due to low oxygenation. She is now on 2 L of oxygen at all times. She denies any breathing difficulty at this time. She is an 81 year old white female with a long-standing history of swelling in her lower extremities secondary to lymphedema. Approximately 2 years ago, she sustained a fracture to her right ankle, requiring surgical intervention. The operative site became infected, and required prolonged treatment and eventually a skin graft for complete wound closure. As a result, the patient's ambulatory capacity has been impaired. Furthermore, she is morbidly obese which limits her ambulation. The patient leads a relatively sedentary lifestyle and requires a walker for ambulation. She spends a great part of her day in a sitting position. She sleeps with the head of the bed elevated. Swelling in her lower extremities has been on-going for many years. The patient has undergone a battery of diagnostic tests. A non-invasive lower extremity arterial study in December 2016 reveals normal- ankle brachial indices, bilaterally. Venous doppler examination on 01/14 reveals incompetence of the great saphenous veins, bilaterally. There is also incompetence of the small saphenous veins, bilaterally and the right accessory saphenous vein. At present, she has three wounds, 2 on the right distal leg and the other is on the left posterior calf. The left leg wound has been present for over a year and was managed with silver alginate, NPWT, Santyl, serial sharp wound debridements, compression therapy using Surepress and compression pumps. Patient's wound cultures over the past several months have grown out Enterobacter cloacae, MRSA, coag-staph aureus, and in January grew out Pseudomonas, managed with oral antibiotics. IIn July of this year, she developed a new wound on the right lateral distal leg, then in July, she experience cellulitis of both legs requiring hospitalization. In the last year, she has been followed by Dr. Jaskaran Chance at the [facility]. It was felt that her home support system was inadequate and that she may not have the resources in her home environment to appropriately care for her needs. In this regard, a geriatric social work professor consultation had been recommended on several occassions, but patient apparently insisted on remaining in her home environment despite that there was thought that is may be less than optimal. The patient is here at the [facility] for a second opinion regarding management of the abovementioned bilateral lower extremity wounds. She offers no other complaints. She denies any fevers, chills, wound-related pain or other related symptoms. INTERVAL HISTORY: 05/19/18 Patient presents for a routine follow- up. She was recently admitted to [facility] in 03/2018 with right leg wound infection. Prior cultures have shown polymicrobial sanchez including Pseudomonas, ampicillin-susceptible Enterococcus, Proteus, and MSSA. MRI of the right leg during that hospitalization was negative for osteomyelitis. She was placed on IV antibiotics in the hospital and then discharged on Cipro and amoxicillin to go until 05/05/2018 by mouth. ? Today, she is noted to be extremely somnolent. Both of her lower extremities are significantly swollen and quite weepy. As a result, she has increased skin maceration to both legs and the previously healed wound to the right medial distal leg has reopened. Both wounds have been managed with calcium alginate with Ag. She denies fever or chills and other related symptoms. 06/22/18 Patient presents for follow-up. She was last seen here at [facility] about a month ago. At the time, she was sent to the hospital for further management as she has significant edema/weeping to both lower extremities and worsening leg ulcerations. She was also noted to be quite lethargic. Wound culture at that time grew Pseudomonas and she was treated with antibiotics. She was started on vancomycin and ciprofloxacin (2 days) but she was afebrile, without leukocytosis. CRP and ESR were mildly elevated. Podiatry and ID were consulted. Wound care was done by podiatry. Antibiotics were eventually stopped. Due to IV diuresis patient became hypotensive and drowsy, lasix was held and her blood pressure improved with 500 ml IV bolus. She was discharged to SNF on PO torsemide 20 mg.to SNF and to follow up here at the [facility]. ? PAST MEDICAL HISTORY Diagnosis Date - Acquired hypothyroidism - Acute respiratory failure with hypoxia (HCC) 09/30/2017 - Atrial fibrillation (HCC) - CAD (coronary artery disease) Dr. Brenda Awan Hts, Promus element KIMMY LAD 11/20/2012, Stress test 04/2014 inferoapical reversible ischemia,small LVEF 48- 50%, LHC 12/2014 L main-normal, LAD widely patent, Cx diffuse mild luminal irregularities with 80%focal stenosis distal, RCA dominant with minimal luminal irregularities. 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 - Pure hypercholesterolemia - Rheumatoid arthritis ([facility]) 2007 - Sleep apnea - Stented coronary artery 12/29/2016 PAST SURGICAL HISTORY Procedure Laterality Date - CC CORONARY STENT 11/20/2012 KIMMY LAD - CC CORONARY STENT 12/20/2014 KIMMY, Cfx - SE[facility] c[facility] - GASTRIC BYPASS HX 1986 - HERNIA REPAIR HX 1987; 1989 - PAST SURGICAL HISTORY OF Right 09/2015 right tibia fracture ORIF - PAST SURGICAL HISTORY OF Right 01/20/2016 Removal of hardware, right tibia - TOTAL KNEE REPLACEMENT Right 2003 [facility]. - TOTAL KNEE REPLACEMENT Left 2004 [facility]. MEDICATIONS ergocalciferol, vitamin D2, (DRISDOL) 50,000 unit capsule Take 1 capsule by mouth once each week. levothyroxine (LEVOXYL) 100 mcg tablet Take 1 tablet by mouth once daily. Take on empty stomach. For Thyroid. gabapentin (NEURONTIN) 300 mg capsule Take 1 capsule by mouth twice daily. metoprolol tartrate, short acting, (LOPRESSOR) 50 mg tablet TAKE ONE TABLET BY MOUTH TWICE DAILY furosemide (LASIX) 40 mg tablet Take 1 tablet by mouth twice daily. COMPOUNDED PRESCRIPTION Calcium Alginate 4x4 Dressing, change daily Dx: Blister left leg with infection S80.822A, L08.9; Lymphedema I89.0. Wound dimensions: 4 x 3 cm acetaminophen (TYLENOL) 500 mg tablet Take 1,000 mg by mouth every 8 hours as needed. aspirin, enteric coated (ASPIRIN, ENTERIC COATED) 81 mg EC tablet Take 81 mg by mouth once daily. warfarin (COUMADIN) 1 mg tablet Take 1 mg by mouth daily as directed. Take 1 tablet (1mg) by mouth once daily. Take with 1 x 3mg tablet to total 4mg by mouth once daily. warfarin (COUMADIN) 3 mg tablet Take 3 mg by mouth daily as directed. Take 1 tablet (3mg) by mouth once daily. Take with 1 x 1mg tablet to total 4mg by mouth once daily. lisinopril (ZESTRIL) 2.5 mg tablet Take 2.5 mg by mouth once daily. omeprazole (PRILOSEC) 20 mg capsule Take 20 mg by mouth once daily. spironolactone (ALDACTONE) 25 mg tablet Take 25 mg by mouth once daily. docusate sodium (COLACE) 100 mg capsule Take 100 mg by mouth once daily as needed. therapeutic multivitamin w/ iron (THERAGRAN-M) 9 mg iron-400 mcg tablet Take 1 tablet by mouth once daily. ALLERGIES No Known Allergies FAMILY HISTORY: Patient's father in his 70s with a history of arthritis. Her mother at the age of 90 with a history of arthritis. SOCIAL HISTORY Patient is a , lives alone, but has a son nearby. She has 6 children. Substance Use Topics - Smoking status: Passive Smoke Exposure - Never Smoker - Smokeless tobacco: Never Used Comment: smoked for 40 years - Alcohol use No REVIEW OF SYSTEM: PAIN ASSESSMENT: Negative for pain, history of chronic pain, or current treatment for a chronic pain condition. GENERAL: No weight loss, malaise or fevers HEENT: Negative for frequent or significant headaches, No changes in hearing or vision, no nose bleeds or other nasal problems NECK: Negative for lumps, goiter, pain and significant neck swelling RESPIRATORY: Negative for cough, hemoptysis, wheezing, positive for shortness of breath CARDIOVASCULAR: Negative for chest pain,palpitations; has chronic leg swelling GI: No nausea, vomiting, or diarrhea : No history of dysuria, frequency or incontinence MUSCULOSKELETAL: Negative for joint pain or swelling, back pain or muscle pain SKIN: As per HPI. Negative for any other lesions, rash, and itching PSYCH: Negative for sleep disturbance, mood disorder and recent psychosocial stressors HEMATOLOGY/LYMPHOLOGY: Negative for prolonged bleeding, bruising easily or swollen nodes ENDOCRINE: Negative for cold or heat intolerance, polyuria, polydipsia and goiter NEURO: No history of headaches, syncope, paralysis, seizures or tremors 06/22/18 1000 BP: 157/67 Pulse: 75 Resp: 20 Temp: 37.1 ?C (97.8 ?F) TempSrc: Oral SpO2: 94% Weight: 97.1 kg (194 lb 4.8 oz) PHYSICAL EXAMINATION: HEENT: PERRLA , sclera non-icteric, EOM intact, mucous membrane moist, pink and w/o lesions Comments: Neck: Supple, no bruit, no masses, trachea midline Comments: Chest: Lungs clear to auscultation, no accessory muscle use for respiration Comments: Heart: Regular rate/rhythm, normal S1,S2, no murmur, rubs or gallops Comments: Abdomen: Soft, non-tender, non-distended, + bowel sounds, no bruit, no organomegaly Comments: Extremity: Dorsalis pedis : Present (Y) Absent Diminished Doppler Posterior Tibialis: Present (Y) Absent Diminished Doppler Capillary Refill: < 3 sec. (Y) > 3 sec. ABIs: Right Left Rubor of Dependency: Negative (Y) Positive (N) [place] Examination: Comments: +3 edema BLEs Measurements: Right Calf: 60 cm Right Ankle: 34.5 cm Left Calf: 54 cm Left Ankle: 37 cm Neuro: Alert AND oriented x3, [employer] II-XII grossly intact, reflexes 2+ and symmetric, UE/LE 5/5 Comments: Skin: No rashes, no abnormal skin lesions Comments: See wound assessment Most recent diagnostic/laboratory data: 10/14/17 Hemoglobin A1C = 5.8 ?? 10/14/17 WBC 8.4, Hgb 12.2, Hct 38.5, PLT 211, Glu 91, BUN 24, Cr 0.88, Na 136, K 4.7, Cl 100, Albumin 3.6, Total protein 9.1 11/04/17 Venous Doppler Study Bilateral Lower Extremities IMPRESSION RIGHT SIDE - DEEP VEINS Negative for acute deep vein thrombosis in vessels visualized. Positive for valvular incompetency in the common femoral vein and femoral vein. Lymph node noted, within the groin, measuring 2.75 x 2.71 x .809cm. Cystic structure noted, within the popliteal fossa, measuring 2.17 x 2.67 x 1.49cm. ? RIGHT SIDE - SUPERFICIAL VEINS Positive for valvular incompetency in the great saphenous vein. REFLUX ONLY NOTED AT PROXIMAL THIGH. Vessel becomes tortuous branching from proximal to distal calf. The anterior lateral branch is negative for incompetency. Positive for valvular incompetency in the small saphenous vein. REFLUX ONLY NOTED AT DISTAL CALF. LEFT SIDE - DEEP VEINS Negative for acute deep vein thrombosis in vessels visualized. Positive for valvular incompetency in the femoral vein at the mid thigh. LEFT SIDE - SUPERFICIAL VEINS Positive for valvular incompetency in the great saphenous vein. REFLUX ONLY NOTED AT MID CALF. Negative for valvular incompetency in the small saphenous vein. No previous scans for comparison; however, chronic appearing superficial thrombophlebitis in the great saphenous vein at the distal calf. ? Technologist: Cleo Magdaleno RVT Ordering physician: Luis ParksAusten Riggs CenterSantino Simons ? Interpreting physician: Vishal Torres MD, SHREE ? 01/24/17 Segmental arterial doppler study bilateral lower extremities Findings: NIMISHA 1.04 to the right and 1.0 to the left. Based upon the findings of this resting non-invasive lower extremity arterial study, arterial perfusion to ankle level appears to be relatively normal bilaterally. Triphasic and biphasic waveforms were noted at ankle level bilaterally. Resting ankle-brachial indices were bilaterally normal. ? 08/01/17 X-Ray 3-View Right Ankle Impression: There is prior open reduction internal fixation of the fibula which appears to be relatively intact allowing for advanced bony osteopenia. There is an irregular appearance of the lateral side distal tibia which is compatible with a prior fracture for which a new fracture on the lateral side is not excluded. The fracture could be potentially be associated with new trauma or potentially infection. Recommend consideration for follow-up study such as MRI or potentially three-phase bone scan. ? Flattened appearance of the arch of the foot with degenerative change of the tarsotarsal joints. ? Diffuse soft tissue swelling. ? Electronically Signed: Kelly Camarena MD at 20:15 EDT Tel , Service support , ? 10/14/17 XR 2 View Tib/Fib (Left) Findings: Left tibia-fibula: Tibial component of the joint prosthesis noted without associated abnormal lucency. No acute fracture or bony destruction. Right tibia and fibula: Plate and screw fixation remote distal fibular fracture. There is also remote tibial fracture with residual posterior angulation. Ghost tracks from previous tibial hardware. Tibial component of the joint prosthesis noted without associated abnormal lucency. No acute fracture or bony destruction. ? Stereotype Finisher: DWIGHT ? Transcribe Date/Time: Oct 14 2017 ?4:02P Dictated by : ZURDO SANTOS MD ? 10/14/17 XR 2 View Tib/Fib (Right) Findings: Left tibia-fibula: Tibial component of the joint prosthesis noted without associated abnormal lucency. No acute fracture or bony destruction. Right tibia and fibula: Plate and screw fixation remote distal fibular fracture. There is also remote tibial fracture with residual posterior angulation. Ghost tracks from previous tibial hardware. Tibial component of the joint prosthesis noted without associated abnormal lucency. No acute fracture or bony destruction. ? Stereotype Finisher: DWIGHT ? Transcribe Date/Time: Oct 14 2017 ?4:02P Dictated by : ZURDO SANTOS MD ? 10/14/17 XR 2 View Tib/Fib (Left) Findings: Left tibia-fibula: Tibial component of the joint prosthesis noted without associated abnormal lucency. No acute fracture or bony destruction. Right tibia and fibula: Plate and screw fixation remote distal fibular fracture. There is also remote tibial fracture with residual posterior angulation. Ghost tracks from previous tibial hardware. Tibial component of the joint prosthesis noted without associated abnormal lucency. No acute fracture or bony destruction. 03/21/18 PVR Bilateral Lower Extremities IMPRESSION: ?Right: Very Limited assessment. ?Ankle-brachial index normal but based on PVRs there is significant disease suggested proximal to the low thigh level. ?Flattening of the tracing from the digit suggesting superimposed small vessel disease of the foot/ischemia/vasospasm. Left: Very Limited assessment. ?Noncompressible artery and therefore ankle-brachial index cannot be calculated. ?There is disease proximal to the low thigh as evidenced by moderate dampening of PVR at the low thigh level. ?Flattened tracing from the digit suggesting ischemia, vasospasm, small vessel disease of the foot. Stereotype Finisher: DWIGHT ? Transcribe Date/Time: Mar 21 2018 ?4:03P Dictated by : CARYN SUMMERS MD This examination was interpreted and the report reviewed and electronically signed by: CARYN SUMMERS MD on Mar 21 2018 ?4:08PM ?EST WOUND ASSESSMENT: Wound Number: 1 First Assessed Date: 10/14/17 Pre-existing: YES Location: Leg Orientation: Right, Lateral and Distal Wound Etiology: Venous Depth of Tissue Injury (Non-pressure): Full Thickness Diabetic Wounds:N/A Pressure Injury: N/A Pre-debridement Measurements Initial (First Visit): 3.5 cm length x 4.0 cm width x 0.5 cm depth Pre-debridement Measurements Initial (Current Visit): 12.5 cm length x 16.0 cm width x 1.5 cm depth Post Debridement Measurement (Current): N/A % Healing Rate/#Weeks: Week 36 -- ( - 42.8%) Wound Bed (Post-debridement): 100% red % of Healthy tissue: Undermining: No Tunneling: No Tendon/bone exposed: NO Wound Edge/Margins: Irregular wound edges and Edge attached to base, macerated Periwound Tissue: Mild erythema, Wet (macerated), and significant edema with weeping Exudate Amount:Moderate Consistency:Serous Odor:Minimal Infection/Critical Colonization: None Localized s/s: Non-healing and Increased exudate Systemic s/s: None Local/systemic Rx: None Wound Healing Status: Chronic Clinically presenting as: Stalled wound healing Current topical treatment: calcium alginate with Ag Wound Number: 2 First Assessed Date: 10/14/17 Pre-existing: YES Location: Leg Orientation: Right, Medial and Distal Wound Etiology: Surgical Depth of Tissue Injury (Non-pressure): Partial Thickness Diabetic Wounds:N/A Pressure Injury: N/A Pre-Measurements Initial (First Visit): 0.5 cm length x 0.4 cm width x 0.1 cm depth Post Measurement (Current): Epithelialized % Healing Rate/#Weeks: Week 1 -- Healed Wound Bed (Post-debridement): % of Healthy tissue: Undermining: No Tunneling: No Tendon/bone exposed: NO Wound Edge/Margins: Normal, intact, Irregular wound edges and Edge attached to base Periwound Tissue: Normal, intact,uninvolved tissue and Dry,flaky Exudate Amount: None Consistency: None Odor:None Infection/Critical Colonization Localized s/s: None and Edema Systemic s/s: None Local/systemic Rx: None Wound Healing Status: Chronic Clinically presenting as: Healed Current topical treatment: Iodoflex Wound Number: 4 First Assessed Date: 03/08/18 Pre-existing: YES Location: Leg (calf) Orientation: Right anterior ace Wound Etiology: Venous Depth of Tissue Injury (Non-pressure): Full Thickness Diabetic Wounds:N/A Pressure Injury: N/A Pre-Measurements Initial (First Visit): 2.0 cm length x 2.5 cm width x 0.1 cm depth Post Measurement (Current): Epithelialized % Healing Rate/#Weeks: Healed Wound Bed (Post-debridement): N/A % of Healthy tissue: Undermining: No Tunneling: No Tendon/bone exposed: NO Wound Edge/Margins: Well-defined wound edges and Edge attached to base Periwound Tissue: [employer], dry and intact, No fluctuance, induration or advancing soft tissue necrosis or ischemia Exudate: None Consistency: None Odor:None Infection/Critical Colonization: N/A Localized s/s: None Systemic s/s: None Local/systemic Rx: None Wound Healing Status: Stable Clinically presenting as: Wound closed Current topical treatment: Zinc oxide Wound Number: 5 First Assessed Date: 03/08/18 Pre-existing: YES Location: Foot Orientation: Right lateral Wound Etiology: Venous Depth of Tissue Injury (Non-pressure): Full Thickness Diabetic Wounds:N/A Pressure Injury: N/A Pre-Measurements Initial (First Visit): 1.5 cm length x 1.0 cm width x 0.1 cm depth Post Measurement (Current): Epithelialized % Healing Rate/#Weeks: Healed Wound Bed (Post-debridement): N/A % of Healthy tissue: Undermining: No Tunneling: No Tendon/bone exposed: NO Wound Edge/Margins: Well-defined wound edges and Edge attached to base Periwound Tissue: [employer], dry and intact, No fluctuance, induration or advancing soft tissue necrosis or ischemia Exudate: None Consistency: None Odor:None Infection/Critical Colonization: N/A Localized s/s: None Systemic s/s: None Local/systemic Rx: None Wound Healing Status: Stable Clinically presenting as: Closed wound Current topical treatment: Zinc oxide paste Wound Number: 3 First Assessed Date: 10/14/17 Pre-existing: YES Location: Leg (calf) Orientation: Left and Posterior Wound Etiology: Venous Depth of Tissue Injury (Non-pressure): Full Thickness Diabetic Wounds:N/A Pressure Injury: N/A Pre-Measurements Initial (First Visit): 1.3 cm length x 1.2 cm width x 0.1 cm depth Post Measurement (Current): Epithelialized % Healing Rate/#Weeks: 100 % -- Week 5 Wound Bed (Post-debridement): 100% [employer] % of Healthy tissue: Undermining: No Tunneling: No Tendon/bone exposed: NO Wound Edge/Margins: Well-defined wound edges and Edge attached to base Periwound Tissue: [employer], dry and intact, No fluctuance, induration or advancing soft tissue necrosis or ischemia Exudate: Nonr Consistency: None Odor:None Infection/Critical Colonization: N/A Localized s/s: None Systemic s/s: None Local/systemic Rx: None Wound Healing Status: Chronic Clinically presenting as: Healed Current topical treatment: Collagen Wound Number: 6 First Assessed Date: 05/19/18 Pre-existing: YES Location: Leg Orientation: Right, Medial and Distal Wound Etiology: Venous Depth of Tissue Injury (Non-pressure): Full Thickness Diabetic Wounds:N/A Pressure Injury: N/A Pre-debridement Measurements Initial (First Visit): 4.2 cm length x 4.8 cm width x 1.3 cm depth Post-debridement Measurements Initial (Current Visit): 5.1 cm length x 5.7 cm width x 1.1 cm depth % Healing Rate/#Weeks: Week 5 -- ( -1.2%) Wound Bed (Post-debridement): N/A % of Healthy tissue: Undermining: No Tunneling: No Tendon/bone exposed: NO Wound Edge/Margins: Irregular wound edges and Edge attached to base, macerated Periwound Tissue: Mild erythema, Wet (macerated), and significant edema with weeping Exudate Amount:Moderate Consistency:Serous Odor:Minimal Infection/Critical Colonization: None Localized s/s: Non-healing and Increased exudate Systemic s/s: None Local/systemic Rx: None Wound Healing Status: Chronic Clinically presenting as: Stalled wound healing Current topical treatment: calcium alginate with Ag Wound Number: 7 First Assessed Date: 06/22/18 Pre-existing: YES Location: Leg Orientation: Left posterior Wound Etiology: Venous Depth of Tissue Injury (Non-pressure): Full Thickness Diabetic Wounds:N/A Pressure Injury: N/A Pre-debridement Measurements Initial (First Visit): 1.9 cm x W: 1.7 cm x D: 0.2 cm Post-debridement Measurements No debridement performed % Healing Rate/#Weeks: New wound Wound Bed (Post-debridement): N/A % of Healthy tissue: Undermining: No Tunneling: No Tendon/bone exposed: NO Wound Edge/Margins: Irregular wound edges and Edge attached to base, macerated Periwound Tissue: Mild erythema, Wet (macerated), and significant edema with weeping Exudate Amount:Moderate Consistency:Serous Odor:Minimal Infection/Critical Colonization: None Localized s/s: Non-healing and Increased exudate Systemic s/s: None Local/systemic Rx: None Wound Healing Status: Chronic Clinically presenting as: Stalled wound healing Current topical treatment: calcium alginate with Ag IMPRESSION: 1. Non-healing right and left lower extremity wounds ( #1 and #3) in the setting of chronic venous insufficiency with secondary lymphedema. 2. Recurrent right medial leg wound s/p STSG in the setting of chronic edema secondary to CVI. 3. Significant lower extremity edema secondary to underlying chronic venous insufficiency with secondary lymphedema. 4. Multiple risk factors or co-morbidities that may contribute to wound healing difficulties include hypothyroid disease, chronic atrial fibrillation on anticoagulation, coronary artery disease, COPD, dyslipidemia, hypertension, muscle weakness, osteoarthritis, GERD, depression and obesity. 5. Wound cultures positive for Enterobacter cloacae and Staph aureus most likely increased colonization. 6. Very good glucose control based on recent HgbA1c. 7. Zinc insufficiency ( precursor for collagen synthesis. 8.?Flattened tracing from the digit suggesting ischemia, vasospasm, small vessel disease of both feet. 9. No evidence of osteomyelitis based on recent XRs. 10. Valvular incompetency involving the right common femoral vein , right femoral vein, right great saphenous vein, left femoral vein (mid thigh) and left great saphenous vein (mid thigh). TREATMENT PLAN: Debridement Type: Autolytic Enzymatic Mechanical Surgical Sharp (Y) Other: Wound Dressing: See Nursing Notes for details. . Topical Rx: Right posterior-lateral distal leg: Lido gel applied to the wound bed prior to sq debridement per provider. Wound flushed with 100 cc saline solution. Pat dry. Wound packed with calcium alginate applied to the wound bed. Site covered with drymax, abd pad with a folded abd pad for compression. Site secured with a kerlix wrap. 6 Ankit wrap applied for compression. Right medial distal leg: Lido gel applied to the wound bed prior to sq Debridement per provider. Wound flushed with 100 cc saline solution. Pat dry. Wound packed with calcium alginate applied to the wound bed. Vitamin AANDD ointment liberally applied to all intact skin. Site covered with drymax, abd pad and secured with a kerlix wrap. Surepress applied from behind the toes to 1 below the knee. Taped to secure. Right lateral sole: Remains closed. Padded with abd pad to protect. Left posterior leg(NEW): Wound flushed with 10 cc saline solution. Pat dry. Zinc oxide applied to the wound bed. Site covered with a 4x4 border gauze. Vitamin AANDD ointment applied to all intact skin. Surepress applied from behind the toes to 1 below the knee. Taped to secure. Decongestive Management: Surepress: Foot is warm and pink before and after application. It was demonstrated to the patient how to check for adequate circulation. Patient voices understanding. If circulation becomes compromised by a change in color, increased pain, numbness or tingling to the area, the patient knows to remove the compression and elevate the leg above the heart. CirAids to be ordered for maintenance therapy. Use pneumatic compression pumps twice daily with 40-50 mmhg compression WOUND CARE INSTRUCTIONS Wound location: Right lower leg multiple wounds - Venous insufficiency bilateral lower legs If wound vac fails: 1. Wash your hands with soap and water before and after wound care. 2. Gather all supplies needed. 3. Wash wound with Dial soap and water. Pat dry. 4. Pack wound with dakins solution 0.125% lightly moistened gauze to the wound base. 5. Cover with 4x4s and ABD pad. 6. Secure dressing with tape 7. Change your dressing twice daily Wound Vac Settings: Skin prep to the jennifer-wound. Window wound with drape or duoderm Lightly Pack wound with black foam bridging right medial and lateral leg wounds Track pad away from any pressure areas including wound opening Negative [id number] mmhg Continuous pressure x 48 hours then, switch to intermittent pressure with 5 min on/2 min off High intensity Change dressing twice weekly Begin wound vac when available Left lateral lower leg: Wash wound with saline solution. Pat dry Apply zinc oxide to the wound Cover with a border gauze Apply Surepress wrap from behind the toes to 1 below the knee. Change dressing daily Right lateral sole of foot Pad and protect Physical Therapy: Referred to [facility] for mist therapy e-stem twice weekly visits Continue antibiotics Systemic Rx: Continue antibiotics Nutritional Support: MVI, Zinc Supplement and Protein Supplement Patient is instructed to continue a healthy, well-balanced diet for nutritional support for optimal healing. Protein is the most important nutrient for wound healing. Eating adequate amounts of protein allows the body to create new cells and chemicals to heal the wound, and increases the body?s ability to fight infection. Eating high protein foods daily is recommended such as: lean meats, fish, poultry, cheese, milk, yogurt, eggs and legumes. Vitamins and minerals provide a full range of nutrients for wound healing. It can help jump start the body's production of cells and chemicals needed for healing. Vitamins and minerals can be obtained through healthy foods in your diet and by taking a multiple vitamin supplement. Vitamin C is essential for collagen synthesis. Collagen and fibroblasts compose the basis for the structure of a new wound bed. Also, a deficiency of Vitamin C prolongs the healing time and contributes to reduced resistance to infection. Laboratory: We will obtain wound cultures to determine bacterial load. She will be treated accordingly. Wound cultures are collected to assess level of bacterial bio-burden. Excessive bio-burden can result in inflammatory and proliferative phase stagnation as well as compromise of normal wound healing physiology. Bacterial proliferation, biofilm production, critical colonization and the development of resistant organism can lead to wound infection, wound deterioration and devastating tissue loss. Knowing the organism that populated the wound can help direct therapy, particularly anti-microbial dressing choices. Vascular Evaluation: PVRs for both lower extremities to evaluate for arterial insufficiency completed. Pt advised to see Dr. Tavo Mcnair of Vascular Surgery for further evaluation given her underlying PVD to help with wound healing. Follow-up to be determined - call to schedule appointment depending on if she goes into the hospital. Given that the patient is extremely somnolent and her lower extremities are significantly swollen and weeping, she needs further evaluation and is now being transferred via wheelchair to the ED by our RN. Luis Simons APRN.GROUND SYSTEMS ENGINEER Charge Capture: [id number]; [id number] (x11) CNOV Observed: 06/22/2018 Status: COMPLETED Source: [facility] 10:00 AM CLINIC OTHER CAMPUS REPOSITORY Office Visit ([facility]) ROSA BELTRAN ([id number]) 1935 F Date Time Provider Department 06/22/18 10:00 AM LUSI SIMONS, (LOI) [facility] During your visit today, we recorded the following information about you: Temperature Pulse Respiration Blood pressure 98.8 degrees 75/minute 20/minute 134/68 Luis Simons APRN.LOI 09/13/2018 12:41 PM Addendum DATE OF VISIT: 06/22/2018 REASON FOR VISIT: Non-healing lower extremity wound. HISTORY OF PRESENT ILLNESS: Rosa Beltran is a 81 year old female who presents to the [facility] for further evaluation and management of a non-healing leg wound. She has a past medical history significant for atrial fibrillation on Coumadin, coronary artery disease,?COPD, hypertension, dyslipidemia and CHF.?Patient has felt mildly short of breath over the past month. ?Increase with exertion and lying flat. She is on 40 mg of Lasix twice a day. She still is urinating appropriately. She has not had any chest pain or palpitations. ?Fever, chills, or sweats. ?No productive cough. ?No wheezing. Upon taking patients vitals, her SPO2 level was from 76% - 85%. Patient stated she had shortness of breath. She was unable to finish her sentences without catching her breath. The tips of her fingers were cyanotic. Patient was sent to the ER for further evaluation. Tiffanie BARBOSA wheeled patient to the ER. INTERVAL HISTORY: Patient was sent tot he ED during her previous visit due to low oxygenation. She is now on 2 L of oxygen at all times. She denies any breathing difficulty at this time. She is an 81 year old white female with a long-standing history of swelling in her lower extremities secondary to lymphedema. Approximately 2 years ago, she sustained a fracture to her right ankle, requiring surgical intervention. The operative site became infected, and required prolonged treatment and eventually a skin graft for complete wound closure. As a result, the patient's ambulatory capacity has been impaired. Furthermore, she is morbidly obese which limits her ambulation. The patient leads a relatively sedentary lifestyle and requires a walker for ambulation. She spends a great part of her day in a sitting position. She sleeps with the head of the bed elevated. Swelling in her lower extremities has been on-going for many years. The patient has undergone a battery of diagnostic tests. A non-invasive lower extremity arterial study in December 2016 reveals normal-ankle brachial indices, bilaterally. Venous doppler examination on 01/14 reveals incompetence of the great saphenous veins, bilaterally. There is also incompetence of the small saphenous veins, bilaterally and the right accessory saphenous vein. At present, she has three wounds, 2 on the right distal leg and the other is on the left posterior calf. The left leg wound has been present for over a year and was managed with silver alginate, NPWT, Santyl, serial sharp wound debridements, compression therapy using Surepress and compression pumps. Patient's wound cultures over the past several months have grown out Enterobacter cloacae, MRSA, coag-staph aureus, and in January grew out Pseudomonas, managed with oral antibiotics. IIn July of this year, she developed a new wound on the right lateral distal leg, then in July, she experience cellulitis of both legs requiring hospitalization. In the last year, she has been followed by Dr. Jaskaran Chance at the [facility] [place] [facility]. It was felt that her home support system was inadequate and that she may not have the resources in her home environment to appropriately care for her needs. In this regard, a geriatric social work professor consultation had been recommended on several occassions, but patient apparently insisted on remaining in her home environment despite that there was thought that is may be less than optimal. The patient is here at the [facility] for a second opinion regarding management of the abovementioned bilateral lower extremity wounds. She offers no other complaints. She denies any fevers, chills, wound-related pain or other related symptoms. INTERVAL HISTORY: 05/19/18 Patient presents for a routine follow- up. She was recently admitted to [facility] in 03/2018 with right leg wound infection. Prior cultures have shown polymicrobial sanchez including Pseudomonas, ampicillin-susceptible Enterococcus, Proteus, and MSSA. MRI of the right leg during that hospitalization was negative for osteomyelitis. She was placed on IV antibiotics in the hospital and then discharged on Cipro and amoxicillin to go until 05/05/2018 by mouth. ? Today, she is noted to be extremely somnolent. Both of her lower extremities are significantly swollen and quite weepy. As a result, she has increased skin maceration to both legs and the previously healed wound to the right medial distal leg has reopened. Both wounds have been managed with calcium alginate with Ag. She denies fever or chills and other related symptoms. 06/22/18 Patient presents for follow-up. She was last seen here at the Wound Center about a month ago. At the time, she was sent to the hospital for further management as she has significant edema/weeping to both lower extremities and worsening leg ulcerations. She was also noted to be quite lethargic. Wound culture at that time grew Pseudomonas and she was treated with antibiotics. She was started on vancomycin and ciprofloxacin (2 days) but she was afebrile, without leukocytosis. CRP and ESR were mildly elevated. Podiatry and ID were consulted. Wound care was done by podiatry. Antibiotics were eventually stopped. Due to IV diuresis patient became hypotensive and drowsy, lasix was held and her blood pressure improved with 500 ml IV bolus. She was discharged to SNF on PO torsemide 20 mg.to SNF and to follow up here at the Wound Center. ? PAST MEDICAL HISTORY Diagnosis Date - Acquired hypothyroidism - Acute respiratory failure with hypoxia ([facility]) 09/30/2017 - Atrial fibrillation ([facility]) - CAD (coronary artery disease) Dr. Brenda Awan [facility], Promus element KIMMY LAD 11/20/2012, Stress test 04/2014 inferoapical reversible ischemia,small LVEF 48-50%, LHC 12/2014 L main-normal, LAD widely patent, Cx diffuse mild luminal irregularities with 80%focal stenosis distal, RCA dominant with minimal luminal irregularities. 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 - Pure hypercholesterolemia - Rheumatoid arthritis (HCC) 2007 - Sleep apnea - Stented coronary artery 12/29/2016 PAST SURGICAL HISTORY Procedure Laterality Date - CC CORONARY STENT 11/20/2012 KIMMY LAD - CC CORONARY STENT 12/20/2014 KIMMY, Cfx - SECTION HX - COLONOSCOPY 06/10/2017 [facility], Nonspecific cecal ulcer - GASTRIC BYPASS HX 1986 - HERNIA REPAIR HX 1987; 1989 - PAST SURGICAL HISTORY OF Right 09/2015 right tibia fracture ORIF - PAST SURGICAL HISTORY OF Right 01/20/2016 Removal of hardware, right tibia - TOTAL KNEE REPLACEMENT Right 2003 [facility] Gen. - TOTAL KNEE REPLACEMENT Left 2004 [facility] Gen. MEDICATIONS ergocalciferol, vitamin D2, (DRISDOL) 50,000 unit capsule Take 1 capsule by mouth once each week. levothyroxine (LEVOXYL) 100 mcg tablet Take 1 tablet by mouth once daily. Take on empty stomach. For Thyroid. gabapentin (NEURONTIN) 300 mg capsule Take 1 capsule by mouth twice daily. metoprolol tartrate, short acting, (LOPRESSOR) 50 mg tablet TAKE ONE TABLET BY MOUTH TWICE DAILY furosemide (LASIX) 40 mg tablet Take 1 tablet by mouth twice daily. COMPOUNDED PRESCRIPTION Calcium Alginate 4x4 Dressing, change daily Dx: Blister left leg with infection S80.822A, L08.9; Lymphedema I89.0. Wound dimensions: 4 x 3 cm acetaminophen (TYLENOL) 500 mg tablet Take 1,000 mg by mouth every 8 hours as needed. aspirin, enteric coated (ASPIRIN, ENTERIC COATED) 81 mg EC tablet Take 81 mg by mouth once daily. warfarin (COUMADIN) 1 mg tablet Take 1 mg by mouth daily as directed. Take 1 tablet (1mg) by mouth once daily. Take with 1 x 3mg tablet to total 4mg by mouth once daily. warfarin (COUMADIN) 3 mg tablet Take 3 mg by mouth daily as directed. Take 1 tablet (3mg) by mouth once daily. Take with 1 x 1mg tablet to total 4mg by mouth once daily. lisinopril (ZESTRIL) 2.5 mg tablet Take 2.5 mg by mouth once daily. omeprazole (PRILOSEC) 20 mg capsule Take 20 mg by mouth once daily. spironolactone (ALDACTONE) 25 mg tablet Take 25 mg by mouth once daily. docusate sodium (COLACE) 100 mg capsule Take 100 mg by mouth once daily as needed. therapeutic multivitamin w/ iron (THERAGRAN-M) 9 mg iron-400 mcg tablet Take 1 tablet by mouth once daily. ALLERGIES No Known Allergies FAMILY HISTORY: Patient's father in his 70s with a history of arthritis. Her mother at the age of 90 with a history of arthritis. SOCIAL HISTORY Patient is a , lives alone, but has a son nearby. She has 6 children. Substance Use Topics - Smoking status: Passive Smoke Exposure - Never Smoker - Smokeless tobacco: Never Used Comment: smoked for 40 years - Alcohol use No REVIEW OF SYSTEM: PAIN ASSESSMENT: Negative for pain, history of chronic pain, or current treatment for a chronic pain condition. GENERAL: No weight loss, malaise or fevers HEENT: Negative for frequent or significant headaches, No changes in hearing or vision, no nose bleeds or other nasal problems NECK: Negative for lumps, goiter, pain and significant neck swelling RESPIRATORY: Negative for cough, hemoptysis, wheezing, positive for shortness of breath CARDIOVASCULAR: Negative for chest pain,palpitations; has chronic leg swelling GI: No nausea, vomiting, or diarrhea : No history of dysuria, frequency or incontinence MUSCULOSKELETAL: Negative for joint pain or swelling, back pain or muscle pain SKIN: As per HPI. Negative for any other lesions, rash, and itching PSYCH: Negative for sleep disturbance, mood disorder and recent psychosocial stressors HEMATOLOGY/LYMPHOLOGY: Negative for prolonged bleeding, bruising easily or swollen nodes ENDOCRINE: Negative for cold or heat intolerance, polyuria, polydipsia and goiter NEURO: No history of headaches, syncope, paralysis, seizures or tremors 06/22/18 1000 BP: 157/67 Pulse: 75 Resp: 20 Temp: 37.1 ?C (97.8 ?F) TempSrc: Oral SpO2: 94% Weight: 97.1 kg (194 lb 4.8 oz) PHYSICAL EXAMINATION: HEENT: PERRLA , sclera non-icteric, EOM intact, mucous membrane moist, pink and w/o lesions Comments: Neck: Supple, no bruit, no masses, trachea midline Comments: Chest: Lungs clear to auscultation, no accessory muscle use for respiration Comments: Heart: Regular rate/rhythm, normal S1,S2, no murmur, rubs or gallops Comments: Abdomen: Soft, non-tender, non-distended, + bowel sounds, no bruit, no organomegaly Comments: Extremity: Dorsalis pedis : Present (Y) Absent Diminished Doppler Posterior Tibialis: Present (Y) Absent Diminished Doppler Capillary Refill: < 3 sec. (Y) > 3 sec. ABIs: Right Left Rubor of Dependency: Negative (Y) Positive (N) [place]if[place]in Examination: Comments: +3 edema BLEs Measurements: Right Calf: 60 cm Right Ankle: 34.5 cm Left Calf: 54 cm Left Ankle: 37 cm Neuro: Alert AND oriented x3, AUTOMOTIVE SALES REPRESENTATIVE II-XII grossly intact, reflexes 2+ and symmetric, UE/LE 5/5 Comments: Skin: No rashes, no abnormal skin lesions Comments: See wound assessment Most recent diagnostic/laboratory data: 10/14/17 Hemoglobin A1C = 5.8 ?? 10/14/17 WBC 8.4, Hgb 12.2, Hct 38.5, PLT 211, Glu 91, BUN 24, Cr 0.88, Na 136, K 4.7, Cl 100, Albumin 3.6, Total protein 9.1 11/04/17 Venous Doppler Study Bilateral Lower Extremities IMPRESSION RIGHT SIDE - DEEP VEINS Negative for acute deep vein thrombosis in vessels visualized. Positive for valvular incompetency in the common femoral vein and femoral vein. Lymph node noted, within the groin, measuring 2.75 x 2.71 x .809cm. Cystic structure noted, within the popliteal fossa, measuring 2.17 x 2.67 x 1.49cm. ? RIGHT SIDE - SUPERFICIAL VEINS Positive for valvular incompetency in the great saphenous vein. REFLUX ONLY NOTED AT PROXIMAL THIGH. Vessel becomes tortuous branching from proximal to distal calf. The anterior lateral branch is negative for incompetency. Positive for valvular incompetency in the small saphenous vein. REFLUX ONLY NOTED AT DISTAL CALF. LEFT SIDE - DEEP VEINS Negative for acute deep vein thrombosis in vessels visualized. Positive for valvular incompetency in the femoral vein at the mid thigh. LEFT SIDE - SUPERFICIAL VEINS Positive for valvular incompetency in the great saphenous vein. REFLUX ONLY NOTED AT MID CALF. Negative for valvular incompetency in the small saphenous vein. No previous scans for comparison; however, chronic appearing superficial thrombophlebitis in the great saphenous vein at the distal calf. ? Technologist: Cleo Magdaleno RVT Ordering physician: Luis Simons ? Interpreting physician: Vishal Torres MD, FABYT ? 01/24/17 Segmental arterial doppler study bilateral lower extremities Findings: NIMISHA 1.04 to the right and 1.0 to the left. Based upon the findings of this resting non-invasive lower extremity arterial study, arterial perfusion to ankle level appears to be relatively normal bilaterally. Triphasic and biphasic waveforms were noted at ankle level bilaterally. Resting ankle- brachial indices were bilaterally normal. ? 08/01/17 X-Ray 3-View Right Ankle Impression: There is prior open reduction internal fixation of the fibula which appears to be relatively intact allowing for advanced bony osteopenia. There is an irregular appearance of the lateral side distal tibia which is compatible with a prior fracture for which a new fracture on the lateral side is not excluded. The fracture could be potentially be associated with new trauma or potentially infection. Recommend consideration for follow- up study such as MRI or potentially three-phase bone scan. ? Flattened appearance of the arch of the foot with degenerative change of the tarsotarsal joints. ? Diffuse soft tissue swelling. ? Electronically Signed: Kelly Camarena MD at 20:15 EDT Tel , Service support , ? 10/14/17 XR 2 View Tib/Fib (Left) Findings: Left tibia-fibula: Tibial component of the joint prosthesis noted without associated abnormal lucency. No acute fracture or bony destruction. Right tibia and fibula: Plate and screw fixation remote distal fibular fracture. There is also remote tibial fracture with residual posterior angulation. Ghost tracks from previous tibial hardware. Tibial component of the joint prosthesis noted without associated abnormal lucency. No acute fracture or bony destruction. ? Stereotype Finisher: DWIGHT ? Transcribe Date/Time: Oct 14 2017 ?4:02P Dictated by : ZURDO SANTOS MD ? 10/14/17 XR 2 View Tib/Fib (Right) Findings: Left tibia-fibula: Tibial component of the joint prosthesis noted without associated abnormal lucency. No acute fracture or bony destruction. Right tibia and fibula: Plate and screw fixation remote distal fibular fracture. There is also remote tibial fracture with residual posterior angulation. Ghost tracks from previous tibial hardware. Tibial component of the joint prosthesis noted without associated abnormal lucency. No acute fracture or bony destruction. ? Stereotype Finisher: DWIGHT ? Transcribe Date/Time: Oct 14 2017 ?4:02P Dictated by : ZURDO SANTOS MD ? 10/14/17 XR 2 View Tib/Fib (Left) Findings: Left tibia-fibula: Tibial component of the joint prosthesis noted without associated abnormal lucency. No acute fracture or bony destruction. Right tibia and fibula: Plate and screw fixation remote distal fibular fracture. There is also remote tibial fracture with residual posterior angulation. Ghost tracks from previous tibial hardware. Tibial component of the joint prosthesis noted without associated abnormal lucency. No acute fracture or bony destruction. 03/21/18 PVR Bilateral Lower Extremities IMPRESSION: ?Right: Very Limited assessment. ?Ankle-brachial index normal but based on PVRs there is significant disease suggested proximal to the low thigh level. ?Flattening of the tracing from the digit suggesting superimposed small vessel disease of the foot/ischemia/vasospasm. Left: Very Limited assessment. ?Noncompressible artery and therefore ankle-brachial index cannot be calculated. ?There is disease proximal to the low thigh as evidenced by moderate dampening of PVR at the low thigh level. ?Flattened tracing from the digit suggesting ischemia, vasospasm, small vessel disease of the foot. Stereotype Finisher: DWIGHT ? Transcribe Date/Time: Mar 21 2018 ?4:03P Dictated by : CARYN SUMMERS MD This examination was interpreted and the report reviewed and electronically signed by: CARYN SUMMERS MD on Mar 21 2018 ?4:08PM ?EST WOUND ASSESSMENT: Wound Number: 1 First Assessed Date: 10/14/17 Pre-existing: YES Location: Leg Orientation: Right, Lateral and Distal Wound Etiology: Venous Depth of Tissue Injury (Non-pressure): Full Thickness Diabetic Wounds:N/A Pressure Injury: N/A Pre-debridement Measurements Initial (First Visit): 3.5 cm length x 4.0 cm width x 0.5 cm depth Pre-debridement Measurements Initial (Current Visit): 12.5 cm length x 16.0 cm width x 1.5 cm depth Post Debridement Measurement (Current): N/A % Healing Rate/#Weeks: Week 36 -- ( - 42.8%) Wound Bed (Post-debridement): 100% red % of Healthy tissue: Undermining: No Tunneling: No Tendon/bone exposed: NO Wound Edge/Margins: Irregular wound edges and Edge attached to base, macerated Periwound Tissue: Mild erythema, Wet (macerated), and significant edema with weeping Exudate Amount:Moderate Consistency:Serous Odor:Minimal Infection/Critical Colonization: None Localized s/s: Non-healing and Increased exudate Systemic s/s: None Local/systemic Rx: None Wound Healing Status: Chronic Clinically presenting as: Stalled wound healing Current topical treatment: calcium alginate with Ag Wound Number: 2 First Assessed Date: 10/14/17 Pre-existing: YES Location: Leg Orientation: Right, Medial and Distal Wound Etiology: Surgical Depth of Tissue Injury (Non-pressure): Partial Thickness Diabetic Wounds:N/A Pressure Injury: N/A Pre-Measurements Initial (First Visit): 0.5 cm length x 0.4 cm width x 0.1 cm depth Post Measurement (Current): Epithelialized % Healing Rate/#Weeks: Week 1 -- Healed Wound Bed (Post-debridement): % of Healthy tissue: Undermining: No Tunneling: No Tendon/bone exposed: NO Wound Edge/Margins: Normal, intact, Irregular wound edges and Edge attached to base Periwound Tissue: Normal, intact,uninvolved tissue and Dry,flaky Exudate Amount: None Consistency: None Odor:None Infection/Critical Colonization Localized s/s: None and Edema Systemic s/s: None Local/systemic Rx: None Wound Healing Status: Chronic Clinically presenting as: Healed Current topical treatment: Iodoflex Wound Number: 4 First Assessed Date: 03/08/18 Pre-existing: YES Location: Leg (calf) Orientation: Right anterior ace Wound Etiology: Venous Depth of Tissue Injury (Non-pressure): Full Thickness Diabetic Wounds:N/A Pressure Injury: N/A Pre-Measurements Initial (First Visit): 2.0 cm length x 2.5 cm width x 0.1 cm depth Post Measurement (Current): Epithelialized % Healing Rate/#Weeks: Healed Wound Bed (Post-debridement): N/A % of Healthy tissue: Undermining: No Tunneling: No Tendon/bone exposed: NO Wound Edge/Margins: Well-defined wound edges and Edge attached to base Periwound Tissue: [employer], dry and intact, No fluctuance, induration or advancing soft tissue necrosis or ischemia Exudate: None Consistency: None Odor:None Infection/Critical Colonization: N/A Localized s/s: None Systemic s/s: None Local/systemic Rx: None Wound Healing Status: Stable Clinically presenting as: Wound closed Current topical treatment: Zinc oxide Wound Number: 5 First Assessed Date: 03/08/18 Pre-existing: YES Location: Foot Orientation: Right lateral Wound Etiology: Venous Depth of Tissue Injury (Non-pressure): Full Thickness Diabetic Wounds:N/A Pressure Injury: N/A Pre-Measurements Initial (First Visit): 1.5 cm length x 1.0 cm width x 0.1 cm depth Post Measurement (Current): Epithelialized % Healing Rate/#Weeks: Healed Wound Bed (Post-debridement): N/A % of Healthy tissue: Undermining: No Tunneling: No Tendon/bone exposed: NO Wound Edge/Margins: Well-defined wound edges and Edge attached to base Periwound Tissue: [employer], dry and intact, No fluctuance, induration or advancing soft tissue necrosis or ischemia Exudate: None Consistency: None Odor:None Infection/Critical Colonization: N/A Localized s/s: None Systemic s/s: None Local/systemic Rx: None Wound Healing Status: Stable Clinically presenting as: Closed wound Current topical treatment: Zinc oxide paste Wound Number: 3 First Assessed Date: 10/14/17 Pre-existing: YES Location: Leg (calf) Orientation: Left and Posterior Wound Etiology: Venous Depth of Tissue Injury (Non-pressure): Full Thickness Diabetic Wounds:N/A Pressure Injury: N/A Pre-Measurements Initial (First Visit): 1.3 cm length x 1.2 cm width x 0.1 cm depth Post Measurement (Current): Epithelialized % Healing Rate/#Weeks: 100 % -- Week 5 Wound Bed (Post-debridement): 100% [employer] % of Healthy tissue: Undermining: No Tunneling: No Tendon/bone exposed: NO Wound Edge/Margins: Well-defined wound edges and Edge attached to base Periwound Tissue: [employer], dry and intact, No fluctuance, induration or advancing soft tissue necrosis or ischemia Exudate: Nonr Consistency: None Odor:None Infection/Critical Colonization: N/A Localized s/s: None Systemic s/s: None Local/systemic Rx: None Wound Healing Status: Chronic Clinically presenting as: Healed Current topical treatment: Collagen Wound Number: 6 First Assessed Date: 05/19/18 Pre-existing: YES Location: Leg Orientation: Right, Medial and Distal Wound Etiology: Venous Depth of Tissue Injury (Non-pressure): Full Thickness Diabetic Wounds:N/A Pressure Injury: N/A Pre-debridement Measurements Initial (First Visit): 4.2 cm length x 4.8 cm width x 1.3 cm depth Post-debridement Measurements Initial (Current Visit): 5.1 cm length x 5.7 cm width x 1.1 cm depth % Healing Rate/#Weeks: Week 5 -- ( -1.2%) Wound Bed (Post-debridement): N/A % of Healthy tissue: Undermining: No Tunneling: No Tendon/bone exposed: NO Wound Edge/Margins: Irregular wound edges and Edge attached to base, macerated Periwound Tissue: Mild erythema, Wet (macerated), and significant edema with weeping Exudate Amount:Moderate Consistency:Serous Odor:Minimal Infection/Critical Colonization: None Localized s/s: Non-healing and Increased exudate Systemic s/s: None Local/systemic Rx: None Wound Healing Status: Chronic Clinically presenting as: Stalled wound healing Current topical treatment: calcium alginate with Ag Wound Number: 7 First Assessed Date: 06/22/18 Pre-existing: YES Location: Leg Orientation: Left posterior Wound Etiology: Venous Depth of Tissue Injury (Non-pressure): Full Thickness Diabetic Wounds:N/A Pressure Injury: N/A Pre-debridement Measurements Initial (First Visit): 1.9 cm x W: 1.7 cm x D: 0.2 cm Post-debridement Measurements No debridement performed % Healing Rate/#Weeks: New wound Wound Bed (Post-debridement): N/A % of Healthy tissue: Undermining: No Tunneling: No Tendon/bone exposed: NO Wound Edge/Margins: Irregular wound edges and Edge attached to base, macerated Periwound Tissue: Mild erythema, Wet (macerated), and significant edema with weeping Exudate Amount:Moderate Consistency:Serous Odor:Minimal Infection/Critical Colonization: None Localized s/s: Non-healing and Increased exudate Systemic s/s: None Local/systemic Rx: None Wound Healing Status: Chronic Clinically presenting as: Stalled wound healing Current topical treatment: calcium alginate with Ag IMPRESSION: 1. Non-healing right and left lower extremity wounds ( #1 and #3) in the setting of chronic venous insufficiency with secondary lymphedema. 2. Recurrent right medial leg wound s/p STSG in the setting of chronic edema secondary to CVI. 3. Significant lower extremity edema secondary to underlying chronic venous insufficiency with secondary lymphedema. 4. Multiple risk factors or co-morbidities that may contribute to wound healing difficulties include hypothyroid disease, chronic atrial fibrillation on anticoagulation, coronary artery disease, COPD, dyslipidemia, hypertension, muscle weakness, osteoarthritis, GERD, depression and obesity. 5. Wound cultures positive for Enterobacter cloacae and Staph aureus most likely increased colonization. 6. Very good glucose control based on recent HgbA1c. 7. Zinc insufficiency ( precursor for collagen synthesis. 8.?Flattened tracing from the digit suggesting ischemia, vasospasm, small vessel disease of both feet. 9. No evidence of osteomyelitis based on recent XRs. 10. Valvular incompetency involving the right common femoral vein , right femoral vein, right great saphenous vein, left femoral vein (mid thigh) and left great saphenous vein (mid thigh). TREATMENT PLAN: Debridement Type: Autolytic Enzymatic Mechanical Surgical Sharp (Y) Other: Wound Dressing: See Nursing Notes for details. . Topical Rx: Right posterior-lateral distal leg: Lido gel applied to the wound bed prior to sq debridement per provider. Wound flushed with 100 cc saline solution. Pat dry. Wound packed with calcium alginate applied to the wound bed. Site covered with drymax, abd pad with a folded abd pad for compression. Site secured with a kerlix wrap. 6 Ankit wrap applied for compression. Right medial distal leg: Lido gel applied to the wound bed prior to sq Debridement per provider. Wound flushed with 100 cc saline solution. Pat dry. Wound packed with calcium alginate applied to the wound bed. Vitamin AANDD ointment liberally applied to all intact skin. Site covered with drymax, abd pad and secured with a kerlix wrap. Surepress applied from behind the toes to 1 below the knee. Taped to secure. Right lateral sole: Remains closed. Padded with abd pad to protect. Left posterior leg(NEW): Wound flushed with 10 cc saline solution. Pat dry. Zinc oxide applied to the wound bed. Site covered with a 4x4 border gauze. Vitamin AANDD ointment applied to all intact skin. Surepress applied from behind the toes to 1 below the knee. Taped to secure. Decongestive Management: Surepress: Foot is warm and pink before and after application. It was demonstrated to the patient how to check for adequate circulation. Patient voices understanding. If circulation becomes compromised by a change in color, increased pain, numbness or tingling to the area, the patient knows to remove the compression and elevate the leg above the heart. CirAids to be ordered for maintenance therapy. Use pneumatic compression pumps twice daily with 40-50 mmhg compression WOUND CARE INSTRUCTIONS Wound location: Right lower leg multiple wounds - Venous insufficiency bilateral lower legs If wound vac fails: 1. Wash your hands with soap and water before and after wound care. 2. Gather all supplies needed. 3. Wash wound with Dial soap and water. Pat dry. 4. Pack wound with dakins solution 0.125% lightly moistened gauze to the wound base. 5. Cover with 4x4s and ABD pad. 6. Secure dressing with tape 7. Change your dressing twice daily Wound Vac Settings: Skin prep to the jennifer-wound. Window wound with drape or duoderm Lightly Pack wound with black foam bridging right medial and lateral leg wounds Track pad away from any pressure areas including wound opening Negative mmhg Continuous pressure x 48 hours then, switch to intermittent pressure with 5 min on/2 min off High intensity Change dressing twice weekly Begin wound vac when available Left lateral lower leg: Wash wound with saline solution. Pat dry Apply zinc oxide to the wound Cover with a border gauze Apply Surepress wrap from behind the toes to 1 below the knee. Change dressing daily Right lateral sole of foot Pad and protect Physical Therapy: Referred to [facility] for mist therapy e-stem twice weekly visits Continue antibiotics Systemic Rx: Continue antibiotics Nutritional Support: MVI, Zinc Supplement and Protein Supplement Patient is instructed to continue a healthy, well-balanced diet for nutritional support for optimal healing. Protein is the most important nutrient for wound healing. Eating adequate amounts of protein allows the body to create new cells and chemicals to heal the wound, and increases the body?s ability to fight infection. Eating high protein foods daily is recommended such as: lean meats, fish, poultry, cheese, milk, yogurt, eggs and legumes. Vitamins and minerals provide a full range of nutrients for wound healing. It can help jump start the body's production of cells and chemicals needed for healing. Vitamins and minerals can be obtained through healthy foods in your diet and by taking a multiple vitamin supplement. Vitamin C is essential for collagen synthesis. Collagen and fibroblasts compose the basis for the structure of a new wound bed. Also, a deficiency of Vitamin C prolongs the healing time and contributes to reduced resistance to infection. Laboratory: We will obtain wound cultures to determine bacterial load. She will be treated accordingly. Wound cultures are collected to assess level of bacterial bio-burden. Excessive bio-burden can result in inflammatory and proliferative phase stagnation as well as compromise of normal wound healing physiology. Bacterial proliferation, biofilm production, critical colonization and the development of resistant organism can lead to wound infection, wound deterioration and devastating tissue loss. Knowing the organism that populated the wound can help direct therapy, particularly anti-microbial dressing choices. Vascular Evaluation: PVRs for both lower extremities to evaluate for arterial insufficiency completed. Pt advised to see Dr. Tavo Mcnair of Vascular Surgery for further evaluation given her underlying PVD to help with wound healing. Follow-up to be determined - call to schedule appointment depending on if she goes into the hospital. Given that the patient is extremely somnolent and her lower extremities are significantly swollen and weeping, she needs further evaluation and is now being transferred via wheelchair to the ED by our RN. Luis Simons APRN.GROUND SYSTEMS ENGINEER Charge Capture: [id number]; [id number] (x11) Luis Simons APRN.LOI 09/13/2018 12:46 PM Signed A time out was performed immediately prior to procedure start with the wound care team, correctly identifying the patient name, date of , procedure, anatomy, patient position, safety precautions, and procedure- specific equipment needs. The procedure was explained to the patient including the risks, benefits and alternatives. The risks, including but not limited to infection and bleeding, were reviewed by this provider and the patient agreed to undergo the procedure. After providing local analgesia with Lidocaine 2% gel, a full-thickness excisional debridement of the right and left leg wounds was performed and carried through the (skin, subcutaneous tissue) using a sterile #15 blade, iris scissors, and forceps to remove the non-viable or devitalized tissue. The debridement extended into the viable wound margin/s to promote a healthy, active wound edge to support healing. The patient tolerated the procedure well without complications. Hemostasis was achieved with direct pressure. The wound/s was/were then copiously irrigated with sterile normal saline and dressings were applied. Tiffanie Humphrey, RN, RN 06/22/2018 11:44 AM Signed Nursing Note Dx: Venous insufficiency with ulcer with secondary lymphedema See provider note for wound description and measurements Patient has removed compression wraps yesterday at home. Dressing removed In the presence and direction of the provider wound care as written below: Photos taken Patient arrived today 26 minutes past her scheduled appointment time When asked the patient chose aggressive care for her wounds 1. Right posterior-lateral distal leg: Lido gel applied to the wound bed prior to sq debridement per provider. Wound flushed with 100 cc saline solution. Pat dry. Wound packed with calcium alginate applied to the wound bed. Site covered with drymax, abd pad with a folded abd pad for compression. Site secured with a kerlix wrap. 6 Ankit wrap applied for compression. L: 12.5 cm x W: 16.0 cm x D: 1.5 cm 2. Right medial distal leg: Lido gel applied to the wound bed prior to sq Debridement per provider. Wound flushed with 100 cc saline solution. Pat dry. Wound packed with calcium alginate applied to the wound bed. Vitamin AANDD ointment liberally applied to all intact skin. Site covered with drymax, abd pad and secured with a kerlix wrap. Surepress applied from behind the toes to 1 below the knee. Taped to secure. L: 5.1 cm x W: 5.7 cm x 1.1 cm 3. Right lateral sole: Remains closed. Padded with abd pad to protect. 4. Left posterior leg(NEW): L: 1.9 cm x W: 1.7 cm x D: 0.2 cm Wound flushed with 10 cc saline solution. Pat dry. Zinc oxide applied to the wound bed. Site covered with a 4x4 border gauze. Vitamin AANDD ointment applied to all intact skin. Surepress applied from behind the toes to 1 below the knee. Taped to secure. Patient had to visit the latrine then back for a dressing change. Right leg Dressings had to changed a 2nd time due to bleeding. Once dressings were removed, wound had stopped bleeding. Surepress: Foot is warm and pink before and after application. It was demonstrated to the patient how to check for adequate circulation. Patient voices understanding. If circulation becomes compromised by a change in color, increased pain, numbness or tingling to the area, the patient knows to remove the compression and elevate the leg above the heart. Measurements: Right Calf: 57 cm Right Ankle: 33 cm Left Calf: 51 cm Left Ankle: 38 cm Length: 51.5 cm PLAN: Wound vac to be ordered for right lower leg wounds and applied per Home Care when available Elevate your legs above your heart to decrease your swelling Referred to [facility] for mist therapy e-stem twice weekly visits Follow up with [facility] every 2 weeks - Patient requires a 45 minute visit Please arrive 5-10 minutes before your scheduled visit Continue antibiotics EDUCATION PER PROVIDER: The patient/family was instructed how to wash the wound(s) with dial soap, rinsing with water, AND patting dry. Visual demonstration on how to apply the dressing. Signs AND symptoms of infection were reviewed: Increased redness, swelling, pain, green, yellow drainage, fever or chills all would need to be evaluated by a Physician. Patient received typed homegoing wound care instructions and has expressed intent to comply. Tiffanie Humphrey RN, RN 06/22/2018 11:11 AM Addendum WOUND CARE INSTRUCTIONS Wound location: Right lower leg multiple wounds - Venous insufficiency bilateral lower legs If wound vac fails: 1. Wash your hands with soap and water before and after wound care. 2. Gather all supplies needed. 3. Wash wound with Dial soap and water. Pat dry. 4. Pack wound with dakins solution 0.125% lightly moistened gauze to the wound base. 5. Cover with 4x4s and ABD pad. 6. Secure dressing with tape 7. Change your dressing twice daily Wound Vac Settings: Skin prep to the jennifer-wound. Window wound with drape or duoderm Lightly Pack wound with black foam bridging right medial and lateral leg wounds Track pad away from any pressure areas including wound opening Negative [id number] mmhg Continuous pressure x 48 hours then, switch to intermittent pressure with 5 min on/2 min off High intensity Change dressing twice weekly Begin wound vac when available Left lateral lower leg: Wash wound with saline solution. Pat dry Apply zinc oxide to the wound Cover with a border gauze Apply Surepress wrap from behind the toes to 1 below the knee. Change dressing daily Right lateral sole of foot Pad and protect To give your wound the best chance to heal: - Eat three balanced meals daily focusing on the protein - Control swelling by elevating the extremity above your heart - exercise the extremity - Complete your wound care instructions - Vitamin C 500 mg twice daily - Multiple Vitamin Daily - Drink a protein shake daily - continue home care Report any of the following changes to the Wound Center at [phone] or go to the Emergency Department: ? Fever or chills ? Increased drainage ? Green or yellow drainage ? Foul odor ? Increased pain ? Hardness around the wound ? Redness, warmth or swelling of the surrounding tissue ? Color change to the wound PLAN: Wound vac to be ordered for right lower leg wounds and applied per Home Care when available Elevate your legs above your heart to decrease your swelling Referred to [facility] for mist therapy e-stem twice weekly visits Follow up with [facility] every 2 weeks - Patient requires a 45 minute visit Please arrive 5-10 minutes before your scheduled visit Continue antibiotics Luis Simons CNP/samm Humphrey RN, RN 07/03/2018 8:57 PM Signed UNIVERSAL PROTOCOL / SAFETY CHECKLIST Procedure to be performed: Sharp debridement of bilateral lower leg wounds Sign in Communication: [id number] Time Out: Team Confirms the Correct Patient, Correct Procedure, Correct Site and Site Marking, Correct Position (if applicable), Prep and Dry Time (if applicable). Time: 1100 Affirmation of Time Out: Yes Sign Out Discussion: Procedure completed and the patient tolerated it well without complications. 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 OMEPRAZOLE 20 MG CAPSULE,LUIS MIGUEL* Take 1 capsule by mouth once * X LISINOPRIL 2.5 MG TABLET Take 1 tablet by mouth every * X DOCUSATE SODIUM 100 MG CAPSULE Take 1 capsule by mouth once * WARFARIN 3 MG TABLET Take 1 tablet by mouth daily * Patient taking differently: Take 3 mg by mouth once daily* X SODIUM HYPOCHLORITE 0.125 % S* Dakin's moistened gauze packi* GABAPENTIN 300 MG CAPSULE Take 1 capsule by mouth twice* X VITAMIN C ORAL Take 1 tablet by mouth twice * X SILVER SULFADIAZINE 1 % TOPIC* Apply to leg wounds as direct* ASPIRIN 81 MG TABLET,DELAYED * Take 81 mg by mouth every jean* X ACETAMINOPHEN 500 MG TABLET Take 1,000 mg by mouth every * X MULTIVITAMIN-IRON 9 MG-FOLIC * Take 1 tablet by mouth once d* LEVOTHYROXINE 100 MCG TABLET Take 1 tablet by mouth once d* X COMPOUNDED PRESCRIPTION Calcium Alginate 4x4 Dressing* Problem List As Of Date 06/22/2018 Noted Resolved Gastroesophageal reflux disease without esophag*INVALID FOR* Chronic atrial fibrillation (HCC) [I48.2] INVALID FOR* Priority: B More... Pure hypercholesterolemia [E78.00] Hypertension [I10] Priority: D Acquired hypothyroidism [E03.9] Priority: F CAD (coronary artery disease) [I25.10] More... Depressive disorder [F32.9] INVALID FOR*07/18/2017 Primary osteoarthritis involving multiple joint*INVALID FOR* Lymphedema of both lower extremities [I89.0] INVALID FOR* Priority: C Mouth dryness [R68.2] INVALID FOR* Muscular weakness [M62.81] INVALID FOR* Dorsalgia [M54.9] INVALID FOR* Stented coronary artery [Z95.5] INVALID FOR* Priority: A Gastric bypass status for obesity [Z98.84] INVALID FOR* Priority: C Bilateral leg ulcer ([facility]) [L97.919, L97.929] INVALID FOR* Priority: E Polyneuropathy (HCC) [G62.9] INVALID FOR* Cecal ulcer [K63.3] INVALID FOR* Acute respiratory failure with hypoxia (HCC) [J*INVALID FOR*10/10/2017 Priority: Severe More... More... More... Respiratory failure with hypoxia (HCC) [J96.91] INVALID FOR*05/25/2018 Priority: Severe Heart failure with preserved ejection fraction *INVALID FOR* Priority: B More... Requires continuous at home supplemental oxygen*INVALID FOR*01/20/2018 More... Adjustment disorder with depressed mood [F43.21]INVALID FOR* Constipation [K59.00] INVALID FOR* Leg ulcer, right, with fat layer exposed (HCC) *INVALID FOR* Ulcer of ankle, right, with fat layer exposed (*INVALID FOR* Priority: A More... Venous stasis ulcer ([facility]) [I83.009, L97.909] INVALID FOR* Priority: A Anticoagulation goal of INR 2 to 3 [Z51.81, Z79*INVALID FOR* Priority: C More... Class 2 obesity in adult [E66.9] INVALID FOR* Priority: M More... Hypotension due to hypovolemia [I95.89, E86.1] INVALID FOR*05/25/2018 Priority: D More... Pressure injury of skin, stage 2 [L89.92] INVALID FOR* Priority: E More... H/O noncompliance with medical treatment, prese*INVALID FOR* Priority: E More... CKD (chronic kidney disease), stage III ([facility]) [*INVALID FOR* Priority: D Hyperkalemia [E87.5] INVALID FOR*05/24/2018 More... Peripheral vascular disease (HCC) [I73.9] INVALID FOR* Priority: C Sundowning [F05] INVALID FOR*05/25/2018 More... Other instructions from your clinician: WOUND CARE INSTRUCTIONS Wound location: Right lower leg multiple wounds - Venous insufficiency bilateral lower legs If wound vac fails: 1. Wash your hands with soap and water before and after wound care. 2. Gather all supplies needed. 3. Wash wound with Dial soap and water. Pat dry. 4. Pack wound with dakins solution 0.125% lightly moistened gauze to the wound base. 5. Cover with 4x4s and ABD pad. 6. Secure dressing with tape 7. Change your dressing twice daily Wound Vac Settings: Skin prep to the jennifer-wound. Window wound with drape or duoderm Lightly Pack wound with black foam bridging right medial and lateral leg wounds Track pad away from any pressure areas including wound opening Negative mmhg Continuous pressure x 48 hours then, switch to intermittent pressure with 5 min on/2 min off High intensity Change dressing twice weekly Begin wound vac when available Left lateral lower leg: Wash wound with saline solution. Pat dry Apply zinc oxide to the wound Cover with a border gauze Apply Surepress wrap from behind the toes to 1 below the knee. Change dressing daily Right lateral sole of foot Pad and protect To give your wound the best chance to heal: - Eat three balanced meals daily focusing on the protein - Control swelling by elevating the extremity above your heart - exercise the extremity - Complete your wound care instructions - Vitamin C 500 mg twice daily - Multiple Vitamin Daily - Drink a protein shake daily - continue home care Report any of the following changes to the Wound Center at [phone] or go to the Emergency Department: ? Fever or chills ? Increased drainage ? Green or yellow drainage ? Foul odor ? Increased pain ? Hardness around the wound ? Redness, warmth or swelling of the surrounding tissue ? Color change to the wound PLAN: Wound vac to be ordered for right lower leg wounds and applied per Home Care when available Elevate your legs above your heart to decrease your swelling Referred to [facility] for mist therapy e- stem twice weekly visits Follow up with [facility] every 2 weeks - Patient requires a 45 minute visit Please arrive 5-10 minutes before your scheduled visit Continue antibiotics Luis Simons CNP/samm Visit Notes: >> Tiffanie (Rn) ELENA Humphrey Kathleen Jun 22, 2018 10:33 AM Status: Signed Nursing Note Dx: Venous insufficiency with ulcer with secondary lymphedema See provider note for wound description and measurements Patient has removed compression wraps yesterday at home. Dressing removed In the presence and direction of the provider wound care as written below: Photos taken Patient arrived today 26 minutes past her scheduled appointment time When asked the patient chose aggressive care for her wounds 1. Right posterior-lateral distal leg: Lido gel applied to the wound bed prior to sq debridement per provider. Wound flushed with 100 cc saline solution. Pat dry. Wound packed with calcium alginate applied to the wound bed. Site covered with drymax, abd pad with a folded abd pad for compression. Site secured with a kerlix wrap. 6 Ankit wrap applied for compression. L: 12.5 cm x W: 16.0 cm x D: 1.5 cm 2. Right medial distal leg: Lido gel applied to the wound bed prior to sq Debridement per provider. Wound flushed with 100 cc saline solution. Pat dry. Wound packed with calcium alginate applied to the wound bed. Vitamin AANDD ointment liberally applied to all intact skin. Site covered with drymax, abd pad and secured with a kerlix wrap. Surepress applied from behind the toes to 1 below the knee. Taped to secure. L: 5.1 cm x W: 5.7 cm x 1.1 cm 3. Right lateral sole: Remains closed. Padded with abd pad to protect. 4. Left posterior leg(NEW): L: 1.9 cm x W: 1.7 cm x D: 0.2 cm Wound flushed with 10 cc saline solution. Pat dry. Zinc oxide applied to the wound bed. Site covered with a 4x4 border gauze. Vitamin AANDD ointment applied to all intact skin. Surepress applied from behind the toes to 1 below the knee. Taped to secure. Patient had to visit the latrine then back for a dressing change. Right leg Dressings had to changed a 2nd time due to bleeding. Once dressings were removed, wound had stopped bleeding. Surepress: Foot is warm and pink before and after application. It was demonstrated to the patient how to check for adequate circulation. Patient voices understanding. If circulation becomes compromised by a change in color, increased pain, numbness or tingling to the area, the patient knows to remove the compression and elevate the leg above the heart. Measurements: Right Calf: 57 cm Right Ankle: 33 cm Left Calf: 51 cm Left Ankle: 38 cm Length: 51.5 cm PLAN: Wound vac to be ordered for right lower leg wounds and applied per Home Care when available Elevate your legs above your heart to decrease your swelling Referred to [facility] for mist therapy e-stem twice weekly visits Follow up with Marlen every 2 weeks - Patient requires a 45 minute visit Please arrive 5-10 minutes before your scheduled visit Continue antibiotics EDUCATION PER PROVIDER: The patient/family was instructed how to wash the wound(s) with dial soap, rinsing with water, AND patting dry. Visual demonstration on how to apply the dressing. Signs AND symptoms of infection were reviewed: Increased redness, swelling, pain, green, yellow drainage, fever or chills all would need to be evaluated by a Physician. Patient received typed homegoing wound care instructions and has expressed intent to comply. Encounter Status:Closed by LUIS SIMONS on 07/03/18 PROCEDURE Observed: 06/22/2018 Status: COMPLETED Source: VICTOR 10:00 AM [facility] REPOSITORY HNO ID: [id number] Author: Luis Rodriguez) Carla Service: (none) Author Type: Nurse Practitioner Type: Procedures Filed: 09/13/2018 11:03 AM Note Text: (No note.) PROCEDURE Observed: 06/22/2018 Status: COMPLETED Source: VICTOR 10:00 AM [facility] REPOSITORY HNO ID: [id number] Author: Luis Simons Service: (none) Author Type: Nurse Practitioner Type: Procedures Filed: 09/13/2018 12:46 PM Note Text: A time out was performed immediately prior to procedure start with the wound care team, correctly identifying the patient name, date of , procedure, anatomy, patient position, safety precautions, and procedure-specific equipment needs. The procedure was explained to the patient including the risks, benefits and alternatives. The risks, including but not limited to infection and bleeding, were reviewed by this provider and the patient agreed to undergo the procedure. After providing local analgesia with Lidocaine 2% gel, a full-thickness excisional debridement of the right and left leg wounds was performed and carried through the (skin, subcutaneous tissue) using a sterile #15 blade, iris scissors, and forceps to remove the non-viable or devitalized tissue. The debridement extended into the viable wound margin/s to promote a healthy, active wound edge to support healing. The patient tolerated the procedure well without complications. Hemostasis was achieved with direct pressure. The wound/s was/were then copiously irrigated with sterile normal saline and dressings were applied. PROGRESS Observed: 06/21/2018 Status: COMPLETED Source: VICTOR 12:22 PM [facility] REPOSITORY HNO ID: [id number] Author: Volodymyr Gilbert Cma Service: (none) Author Type: (none) Type: Progress Notes Filed: 06/21/2018 12:24 PM Note Text: See discharge note. Rosa discharged 07/21/18 from TCU. PROGRESS Observed: 06/21/2018 Status: COMPLETED Source: VICTOR 12:18 PM [facility] REPOSITORY HNO ID: [id number] Author: Volodymyr Gilbert Cma Service: (none) Author Type: (none) Type: Progress Notes Filed: 06/30/2018 8:14 AM Note Text: TRANSITION CARE MANAGEMENT (TCM) DISCHARGE FROM POST ACUTE FACILITY POST ACUTE TRANSFER SUMMARY: - Spoke to: Esperanza HEATH (Jessica - ZENA who I'd been in contact with for Onas care was out of the office) - Pt discharged Home on 06/20/2018. - Records requested (discharge summary from SNF: discharge medication list discharge instructionslabs and imaging). Rosa was discharged yesterday from TCU yesterday. They've set up home PT, OT, and a visiting nurse for her. PROGRESS Observed: 06/21/2018 Status: COMPLETED Source: VICTOR 9:12 AM [facility] REPOSITORY HNO ID: [id number] Author: Volodymyr Gilbert Cma Service: (none) Author Type: (none) Type: Progress Notes Filed: 06/21/2018 9:13 AM Note Text: Spoke with ZENA Paul (jessica is out today) who states she'll check on her status and get back to me. LOITOTIFFANY Observed: 06/21/2018 Status: COMPLETED Source: VICTOR 12:00 AM [facility] REPOSITORY Patient Outreach (INT[facility]) ROSA BELTRAN ([id number]) 1935 F Date Time Provider Department 06/21/18 MARITZA HOWE) IN[facility] During your visit today, we recorded the following information about you: Volodymyr Gilbert Cma 06/30/2018 8:14 AM Signed TRANSITION CARE MANAGEMENT (TCM) DISCHARGE FROM POST ACUTE FACILITY POST ACUTE TRANSFER SUMMARY: - Spoke to: Esperanza HEATH (Jessica - ZENA who I'd been in contact with for Onas care was out of the office) - Pt discharged Home on 06/20/2018. - Records requested (discharge summary from SNF: discharge medication list discharge instructionslabs and imaging). Rosa was discharged yesterday from TCU yesterday. They've set up home PT, OT, and a visiting nurse for her. Allergies As of Date: 06/21/2018 (No Known Allergies) Date Reviewed: 05/24/2018 Reviewed by: Anel (Rn) ELENA Briscoe - Fully Assessed Reason for Visit: Transition Of Care [4074] Prescriptions as of 06/21/2018 Sig: X TORSEMIDE 20 MG TABLET Take 1 tablet by mouth once d* X VITAMIN D2 ORAL Take by mouth. OMEPRAZOLE 20 MG CAPSULE,LUIS MIGUEL* Take 1 capsule by mouth once * X LISINOPRIL 2.5 MG TABLET Take 1 tablet by mouth every * X DOCUSATE SODIUM 100 MG CAPSULE Take 1 capsule by mouth once * WARFARIN 3 MG TABLET Take 1 tablet by mouth daily * Patient taking differently: Take 3 mg by mouth once daily* X SODIUM HYPOCHLORITE 0.125 % S* Dakin's moistened gauze packi* GABAPENTIN 300 MG CAPSULE Take 1 capsule by mouth twice* X VITAMIN C ORAL Take 1 tablet by mouth twice * X SILVER SULFADIAZINE 1 % TOPIC* Apply to leg wounds as direct* ASPIRIN 81 MG TABLET,DELAYED * Take 81 mg by mouth every jean* X ACETAMINOPHEN 500 MG TABLET Take 1,000 mg by mouth every * X MULTIVITAMIN-IRON 9 MG-FOLIC * Take 1 tablet by mouth once d* LEVOTHYROXINE 100 MCG TABLET Take 1 tablet by mouth once d* X COMPOUNDED PRESCRIPTION Calcium Alginate 4x4 Dressing* Problem List As Of Date 06/21/2018 Noted Resolved Gastroesophageal reflux disease without esophag*INVALID FOR* Chronic atrial fibrillation (HCC) [I48.2] INVALID FOR* Priority: B More... Pure hypercholesterolemia [E78.00] Hypertension [I10] Priority: D Acquired hypothyroidism [E03.9] Priority: F CAD (coronary artery disease) [I25.10] More... 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 More... More... Respiratory failure with hypoxia (HCC) [J96.91] INVALID FOR*05/25/2018 Priority: Severe Heart failure with preserved ejection fraction *INVALID FOR* Priority: B More... Requires continuous at home supplemental oxygen*INVALID FOR*01/20/2018 More... Adjustment disorder with depressed mood [F43.21]INVALID FOR* Constipation [K59.00] INVALID FOR* Leg ulcer, right, with fat layer exposed (HCC) *INVALID FOR* Ulcer of ankle, right, with fat layer exposed (*INVALID FOR* Priority: A More... Venous stasis ulcer (HCC) [I83.009, L97.909] INVALID FOR* Priority: A Anticoagulation goal of INR 2 to 3 [Z51.81, Z79*INVALID FOR* Priority: C More... Class 2 obesity in adult [E66.9] INVALID FOR* Priority: M More... Hypotension due to hypovolemia [I95.89, E86.1] INVALID FOR*05/25/2018 Priority: D More... Pressure injury of skin, stage 2 [L89.92] INVALID FOR* Priority: E More... H/O noncompliance with medical treatment, prese*INVALID FOR* Priority: E More... CKD (chronic kidney disease), stage III (HCC) [*INVALID FOR* Priority: D Hyperkalemia [E87.5] INVALID FOR*05/24/2018 More... Peripheral vascular disease (HCC) [I73.9] INVALID FOR* Priority: C Rae [F05] INVALID FOR*05/25/2018 More... Encounter Status:Closed by VOLODYMYR GILBERT CMA on 06/30/18 PROTHROMBIN TIME W/INR Collected: 06/19/2018 Status: F Source: [place]GES 5:20 AM [facility] REPOSITORY TYPE CODE TESTS RESULT OUT OF RANGE REFERENCE UNITS LAB L300.4150 11.7-14.9 SECONDS High PROTIME 25.7 LAB L300.4200 Normal INR 2.3 Performed By: #### L300.3900 #### [facility] [address], [address] CBC W/DIFF, AUTOMATED Collected: 06/16/2018 Status: F Source: H[place]GES 5:10 AM [facility] REPOSITORY TYPE CODE TESTS RESULT OUT OF RANGE REFERENCE UNITS LAB L100.1000 4.4-11.0 K/mm3 Normal WBC 6.3 LAB L100.1200 4.2-5.4 M/mm3 Low RBC 3.48 LAB L100.1300 12.0-15.0 g/dl Low HGB 9.6 LAB L100.1400 37-47 % Low HCT 31.5 LAB L100.1500 81-99 fL Normal MCV 90.5 LAB L100.1600 27.0-32.0 pg Normal MCH 27.6 LAB L100.1700 32-36 g/gl Low MCHC 30.5 LAB L100.1810 11.6-14.6 % High RDW CV 16.3 LAB L100.1820 35.1-43.9 fl High RDW SD 52.4 LAB L100.1900 150-450 K/mm3 Normal PLT 173 LAB L100.2000 6.2-12.0 fl Normal MPV 10.2 LAB L100.2100 47-70 % Normal NEUT% 63.7 LAB L100.2200 19-41 % Normal LY% 23.5 LAB L100.2300 0-10 % Normal MONO% 7.6 LAB L100.2400 0-5 % Normal EO% 4.3 LAB L100.2500 0-1 % Normal BASO% 0.6 LAB L100.2550 0.0-0.9 % Normal IM GRAN % 0.300 Result Comment: IG% - Immature Granulocytes (promyelocytes, myelocytes and metamyelocytes) > 1% indicates that a LEFT SHIFT is Present. LAB L100.2620 2.0-7.7 X10 3/uL Normal Absolute Neut 4.0 LAB L100.2720 0.83-4.51 X10 3/ul Normal Absolute Lymph 1.48 Performed By: #### L100.0100 #### [facility] [address] [place], [place], [address] BASIC METABOLIC Collected: 06/16/2018 Status: F Source: HODGES PROFILE (BMP) 5:10 AM [facility] REPOSITORY TYPE CODE TESTS RESULT OUT OF RANGE REFERENCE UNITS LAB L501.0100 74-106 mg/dL Normal GLU 85 Result Comment: Please note revised GLUCOSE reference range effective 2017. LAB L501.1000 7-18 mg/dL High BUN 31 LAB L501.1100 0.55-1.02 mg/dL High CREAT,SERUM 1.20 Result Comment: The validity of the calculated GFR AND GFRAA in patients over 70 years has not been determined. Clinical correlation is essential. LAB L501.1110 >60 mL/min Low EST GFR 46 Result Comment: Non- GFR Calc LAB L501.1115 >60 mL/min Low EST GFR - AA 55 Result Comment: GFR Calc LAB L501.1255 ml/min Normal Estimated CRCL 31.75 LAB L501.1300 10-20 RATIO High BUN/CRE 25.8 LAB L501.2200 8.5-10 mg/dL Low .1 CA 7.9 LAB L501.5300 136-14 mmol/L Low 5 NA 135 LAB L501.5600 3.5-5. mmol/L Normal 1 K 4.8 LAB L501.5900 98-107 mmol/L Normal CL 102 LAB L501.6100 21.0-3 mmol/L Normal 2.0 CO2 29.0 LAB L501.6200 5-15 Low GAP 4 Performed By: #### L500.2500 #### [facility] [address] [place], [address] PROTHROMBIN TIME W/INR Collected: 06/15/2018 Status: F Source: VALE 5:20 AM [facility] REPOSITORY TYPE CODE TESTS RESULT OUT OF RANGE REFERENCE UNITS LAB L300.4150 11.7-14.9 SECONDS High PROTIME 32.8 LAB L300.4200 Normal INR 3.2 Performed By: #### L300.3900 #### [facility] [address], [address] DISCHARGE SUMMARY Observed: 06/14/2018 Status: F Source: VALE 7:48 PM [facility] REPOSITORY [facility] Medical Records Department [address] [place] [address] Discharge Summary 06/14/181945 MR#: [id number] Acct: [id number] Name: ROSA BELTRAN Rep #: [id number] : 1935 82 From: Brody Sweet MD PCP: Mani Newman MD Status: ADM IN Y Location: [place] [address] Discharge Date and Diagnosis Date of Admission: 05/25/18 Date of Discharge: 06/19/18 - Secondary Discharge Diagnosis Chronic Problems Venous stasis ulcer of right lower extremity (Chronic) Coronary artery disease (Chronic) Atrial fibrillation (Chronic) COPD (chronic obstructive pulmonary disease) (Chronic) Sleep apnea (Chronic) Edema (Chronic) Neuropathic pain (Chronic) GERD (gastroesophageal reflux disease) (Chronic) Migraine (Chronic) Obesity (Chronic) Immobility (Chronic) Right leg pain (Chronic) Heart failure with preserved ejection fraction (Chronic) Fracture of fifth metatarsal bone of left foot (Chronic) Delayed wound healing (Chronic) 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) Vitamin D deficiency (Chronic) Neuropathy (Chronic) 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) Malnutrition (Chronic) Ulcer of right leg (Chronic) Cellulitis of right lower extremity (Chronic) Leg ulcer, left (Chronic) Edema leg (Chronic) Lymphedema of lower extremity (Chronic) Congestive heart failure (Chronic) History of myocardial infarction (Chronic) Incontinence of urine (Chronic) Hypertension (Chronic) Morbid obesity (Chronic) Hypothyroidism (Chronic) Hypercholesterolemia (Chronic) Osteoarthritis (arthritis due to wear and tear of joints) (Chronic) Rheumatoid arthritis (Chronic) Hospital Course and Treatment Imaging Results: 05/25/18 19:30 Diet: Cardiac/Low Cholesterol Food consistency:: Soft Liquid Consistency:: Regular/Thin Dietary Modifications:: Soft Diet Diet Comments: low sodium, double swallow with every bite/sip Clinical Impression(s) from Imaging Studies Chest X-Ray 06/08/18 22:06 IMPRESSION: Interval pulmonary vascular congestion which is decreased when compared with the prior exam. Electronically Signed: Javier Serrano, at 23:11 EDT Tel , Service support , KUB X-Ray 06/08/18 22:55 IMPRESSION: No bowel obstruction. The patient. Electronically Signed: Javier Busbysuzie, at 23:13 EDT Tel , Service support , ADDENDUM: 06/08/18 2320 IMPRESSION: No bowel obstruction. Constipation. Electronically Signed: Javier Busbysuzie, at 23:13 EDT Tel , Service support , Labs (Last 48 Hours) Sodium 139 Potassium 4.9 Chloride 103 Carbon Dioxide 29.0 Anion Gap 7 BUN 45 H Creatinine 1.21 H Estim Creat Clear Calc 31.49 Consultations 05/25/18 Consult: Onc/Wound/beef trimmer Routine Comment: Reason for Consult:: RLE Stasis Ulcer Operations: None Procedures: None Summary of Care Provided: The patient is a 82 year old F emale with below past medical history hospitalized for non-healing right lower extremity venous stasis ulcer, admitted to TCU with debility, here for rehabilitation, strengthening, wound care, prior to discharge home. Discharge home alone, with Home Health Services. Discharge Diet: No Restrictions Discharge Activity: Return to Normal Activity, May Shower, Use Walker Weight Bearing Status: Weight bearing as tolerated Call your doctor if you observe: Fever of 101 or Higher, Inability to urinate, Inability to have a bowel movement, Shortness of breath, Chest pain, Uncontrolled pain Home Medications: Medications to take at Discharge Acetaminophen [Pain Relief Extra Strength] 1,000 mg PO Q8H PRN PRN 06/26/17 Aspirin [Aspir-Low] 81 mg PO QHS 04/25/17 Gabapentin [Neurontin] 300 mg PO BIDCM 04/25/17 Levothyroxine [Synthroid] 100 mcg PO DAILY@0600 08/01/17 Linezolid 600 mg PO BID 06/05/18 Menthol/Lanolin/Calamine/Znox [Calmoseptine Ointment] 1 applic TOPICAL BID 06/05/18 Nystatin Powder [Mycostatin Powder] 1 applic TOPICAL BID 06/05/18 Ondansetron [Zofran Odt] 4 mg PO Q8H PRN PRN 06/05/18 Oxycodone [Oxyir] 5 mg PO Q6H PRN PRN 06/05/18 Pantoprazole Sodium [Protonix] 20 mg PO DAILY 06/05/18 Ciprofloxacin [Cipro] 500 mg PO Q18H #40 tab 06/14/18 Dextran 70/He-Cell [Tears Naturale, Artificial Tears] 1 drop EACH EYE Q1H PRN PRN bottle 06/14/18 Gabapentin [Neurontin] 300 mg PO BIDCM capsule 06/14/18 Linezolid [Zyvox] 600 mg PO BID #60 tab 06/14/18 Menthol/Lanolin/Calamine/Znox [Calmoseptine Ointment] 1 applic TOPICAL 0600,2200 tube 06/14/18 Metoclopramide [Reglan] 10 mg PO ACHS #120 tab 06/14/18 Nystatin Powder [Mycostatin Powder] 1 applic TOPICAL 0600,2200 bottle 06/14/18 Ondansetron [Zofran Odt] 4 mg PO Q8H PRN PRN #90 tab 06/14/18 Oxycodone [Oxyir] 5 - 10 mg PO Q6H PRN PRN #30 tab 06/14/18 Pantoprazole Sodium [Protonix] 20 mg PO DAILY tablet 06/14/18 Warfarin [Coumadin] 2.5 mg PO DAILY@1700 #30 tab 06/14/18 Following Prescrptions Were Given to Patient: Oxycodone [Oxyir] 5 - 10 mg PO Q6H PRN PRN #30 tab PRN Reason: Severe Pain (6-10/10) Ondansetron [Zofran Odt] 4 mg PO Q8H PRN PRN #90 tab PRN Reason: NAUSEA Ciprofloxacin [Cipro] 500 mg PO Q18H #40 tab Metoclopramide [Reglan] 10 mg PO ACHS #120 tab Warfarin [Coumadin] 2.5 mg PO DAILY@1700 #30 tab Linezolid [Zyvox] 600 mg PO BID #60 tab Other Amb Orders: Prothrombin Time w/INR Time Frame: 1 Day, Location: Laboratory Primary Care Physician: Mani Newman MD [Primary Care Provider] - Please follow up with your Primary Care Physician in: 1 week. Please Follow Up With: Dr. Newman-CANCELED Please Follow Up With: Dr. Kalen Beckman When: 2 weeks. Please Follow Up With: Carla Flor MD When: 1 week. Disposition: Home with Home Health Minutes spent on discharge:: 35 Patient Condition:: Poor Medical Necessity - Tobacco Use Smoking Status: Never smoker Tobacco Use: Secondhand Meaningful Use Info Meaningful Use Diagnoses (Choose all that apply): None applicable 06/14/181947 <Electronically signed by Brody Sweet MD> Date Brody Sweet MD Cosigner Signature (if applicable): Date CC: Brody Sweet MD; Mani Newman MD Signed HOME HEALTH PROGRESS Observed: 06/14/2018 Status: F Source: VALE NOTE 7:48 PM [facility] REPOSITORY [facility] Medical Records Department [address] [place] [address] Home Health Progress Note [id number] Encounter Encounter Date: 06/14/181947 MR#: [id number] Acct: [id number] Name: ROSA BELTRAN Rep #: [id number] : 1935 82 From: Brody Sweet MD PCP: Mani Newman MD Status: ADM IN Location: TCU [id number] Home Health Note - Plan Overview of reason of hospitalization: The patient is a 82 year old F emale with below past medical history hospitalized for non-healing right lower extremity venous stasis ulcer, admitted to TCU with debility, here for rehabilitation, strengthening, wound care, prior to discharge home. Discharge home alone, with Home Health Services. Problems: Patient was seen for Venous stasis ulcer of right lower extremity (Chronic) Coronary artery disease (Chronic) Atrial fibrillation (Chronic) COPD (chronic obstructive pulmonary disease) (Chronic) Sleep apnea (Chronic) Edema (Chronic) Neuropathic pain (Chronic) GERD (gastroesophageal reflux disease) (Chronic) Migraine (Chronic) Obesity (Chronic) Complete List of Medical Problems Venous stasis ulcer of right lower extremity (Chronic) Coronary artery disease (Chronic) Atrial fibrillation (Chronic) COPD (chronic obstructive pulmonary disease) (Chronic) Sleep apnea (Chronic) Edema (Chronic) Neuropathic pain (Chronic) GERD (gastroesophageal reflux disease) (Chronic) Migraine (Chronic) Obesity (Chronic) Immobility (Chronic) Right leg pain (Chronic) Heart failure with preserved ejection fraction (Chronic) Fracture of fifth metatarsal bone of left foot (Chronic) Delayed wound healing (Chronic) 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) Vitamin D deficiency (Chronic) Neuropathy (Chronic) 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) Malnutrition (Chronic) Ulcer of right leg (Chronic) Cellulitis of the legs (Acute) Cellulitis of right lower extremity (Chronic) Leg ulcer, left (Chronic) Edema leg (Chronic) Lymphedema of lower extremity (Chronic) Congestive heart failure (Chronic) History of myocardial infarction (Chronic) Incontinence of urine (Chronic) Hypertension (Chronic) Morbid obesity (Chronic) Hypothyroidism (Chronic) Hypercholesterolemia (Chronic) Osteoarthritis (arthritis due to wear and tear of joints) (Chronic) Rheumatoid arthritis (Chronic) - Requirements and Reasons Disciplines Needed/Ordered: Half-Way, Physical Therapy Reason for Disciplines: Disease Specific Monitoring/education, Medication Management/Knowledge Deficit, Wound Care, Gait Training, Stair Training, Fall Prevention, Home Safety/Equipment Instruction, Balance and/or Posture Training, Transfer Training Related To: Limited/Poor Endurance, Shortness of Breath with Activity, Physical Impairments, Unsteady Gait/Balance, Fall Risk Patient is unable to leave the home: Without Aid of Supportive Devices (crutches, cane, wheelchair, walker), Without the assistance of another person - Additional Disciplines Additional Disciplines Needed/Ordered: Occupational Therapy 06/14/181947 <Electronically signed by Brody Sweet MD> Date Brody Sweet MD Cosigner Signature (if indicated): Date CC: Signed DISCHARGE INSTRUCTION Observed: 06/14/2018 Status: F Source: [place] 7:46 PM [facility] REPOSITORY [facility] Medical Records Department [address] [place] [address] Instructions for Home/Discharge Instructions 06/14/181942 MR#: [id number] Acct: [id number] Name: ROSA BELTRAN Rep #: [id number] : 1935 82 From: Brody Sweet MD PCP: Mani Newman MD Status: ADM IN - Discharge Diagnoses Current Active Problems: Current Active and Chronic Problems Venous stasis ulcer of right lower extremity (Chronic) Coronary artery disease (Chronic) Atrial fibrillation (Chronic) COPD (chronic obstructive pulmonary disease) (Chronic) Sleep apnea (Chronic) Edema (Chronic) Neuropathic pain (Chronic) GERD (gastroesophageal reflux disease) (Chronic) Migraine (Chronic) Obesity (Chronic) You will use the following diet at home:: No restrictions, Regular Your food should be the consistency of: Regular Your liquids should be the consistency of: Regular/Thin Discharge Activity: Return to Normal Activity, May Shower, Use Walker Weight Bearing Status: Weight bearing as tolerated Call your doctor if you observe: Fever of 101 or Higher, Inability to urinate, Inability to have a bowel movement, Shortness of breath, Chest pain, Uncontrolled pain Allergies/Adverse Reactions: Allergies No Known Allergies Allergy (Verified 06/05/18 13:06) Medications to take at Discharge Acetaminophen [Pain Relief Extra Strength] 1,000 mg PO Q8H PRN PRN 04/25/17 Aspirin [Aspir-Low] 81 mg PO QHS 04/25/17 Gabapentin [Neurontin] 300 mg PO BIDCM 04/25/17 Levothyroxine [Synthroid] 100 mcg PO DAILY@0600 08/01/17 Linezolid 600 mg PO BID 06/05/18 Menthol/Lanolin/Calamine/Znox [Calmoseptine Ointment] 1 applic TOPICAL BID 06/05/18 Nystatin Powder [Mycostatin Powder] 1 applic TOPICAL BID 06/05/18 Ondansetron [Zofran Odt] 4 mg PO Q8H PRN PRN 06/05/18 Oxycodone [Oxyir] 5 mg PO Q6H PRN PRN 06/05/18 Pantoprazole Sodium [Protonix] 20 mg PO DAILY 06/05/18 Ciprofloxacin [Cipro] 500 mg PO Q18H #40 tab 06/14/18 Dextran 70/He-Cell [Tears Naturale, Artificial Tears] 1 drop EACH EYE Q1H PRN PRN bottle 06/14/18 Gabapentin [Neurontin] 300 mg PO BIDCM capsule 06/14/18 Linezolid [Zyvox] 600 mg PO BID #60 tab 06/14/18 Menthol/Lanolin/Calamine/Znox [Calmoseptine Ointment] 1 applic TOPICAL 0600,2200 tube 06/14/18 Metoclopramide [Reglan] 10 mg PO ACHS #120 tab 06/14/18 Nystatin Powder [Mycostatin Powder] 1 applic TOPICAL 0600,2200 bottle 06/14/18 Ondansetron [Zofran Odt] 4 mg PO Q8H PRN PRN #90 tab 06/14/18 Oxycodone [Oxyir] 5 - 10 mg PO Q6H PRN PRN #30 tab 06/14/18 Pantoprazole Sodium [Protonix] 20 mg PO DAILY tablet 06/14/18 Warfarin [Coumadin] 2.5 mg PO DAILY@1700 #30 tab 06/14/18 The following prescriptions were given: Oxycodone [Oxyir] 5 - 10 mg PO Q6H PRN PRN #30 tab PRN Reason: Severe Pain (6-10/10) Ondansetron [Zofran Odt] 4 mg PO Q8H PRN PRN #90 tab PRN Reason: NAUSEA Ciprofloxacin [Cipro] 500 mg PO Q18H #40 tab Metoclopramide [Reglan] 10 mg PO ACHS #120 tab Warfarin [Coumadin] 2.5 mg PO DAILY@1700 #30 tab Linezolid [Zyvox] 600 mg PO BID #60 tab Orders to be completed after discharge: Prothrombin Time w/INR Time Frame: 1 Day, Location: Laboratory Primary Care Physician: Mani Newman MD [Primary Care Provider] - Please follow up with your Primary Care Physician in: 1 week. Test Results: Test results from this visit will be discussed in further detail at your follow-up appointment, if applicable. Please Follow Up With: Dr. Newman-CANCELED Please Follow Up With: Dr. Kalen Beckman When: 2 weeks. Please Follow Up With: Carla Flor MD When: 1 week. Proposed Discharge Date: 06/19/18 06/14/181945 <Electronically signed by Brody Sweet MD> Date Brody Sweet MD CC: Carla Flor MD; Mani Newman MD MRSA WOUND DNA BY Collected: 06/14/2018 Status: F Source: HODGES PCR 1:30 PM [facility] REPOSITORY Order Comment: Specimen Source? RLE wound TYPE CODE TESTS RESULT OUT OF REFERENCE UNITS RANGE LAB L8200.1100 Negative High MRSA POSITIVE RESULT Result Comment: RESULTS CALLED TO DENA BARBOSA [facility] 06/14/18 [facility]6 [place] Bray. REPORT READ BACK BY SAME . SENT TO [facility] 06-14-18 AT 1527PM LAB L8200.1150 Negative High SA RESULT POSITIVE Performed By: #### L8200.1075 #### [facility] [place], [address] Observed: 06/14/2018 Status: F Source: VALE CULTURE, WOUND 1:30 PM [facility] REPOSITORY Comments: RLE drainage Gram Stain Gram Stain No White Blood Cells Rare Gram negative rods Wound Culture #2 Stenotrophomonas maltophilia Additional sensitivity performed at [facility]. Antibiotic Result Ceftazidime R Chloramphenicol R Levofloxacin R Trimethoprim/Sulfa R Ticar/Clav = 64 ug/ml INTERMEDIATE R = Resistant I = Intermediate S = Susceptible TESTING PERFORMED AT [facility]. ORIGINAL REPORT ON FILE IN LAB CONTAINS ADDITIONAL TEST SITE INFORMATION. ORGANISM 1: Proteus mirabilis Amount Growth 3+ ORGANISM 2: Stenotrophomonas maltophilia Proteus mirabilis: REACTION Amoxacillin/Clavulanic Acid $ 4 S Ampicillin $ >=32 R Ampicillin/Sulbactam $ 16 I Cefazolin $ 8 S Cefepime $ <=1 S Ceftriaxone $ <=1 S Ciprofloxacin $ >=4 R Ertapenim $$$ <=0.5 S Gentamicin $ <=1 S Levofloxacin $ >=8 R Piperacillin/Tazobactam $$ <=4 S Tobramycin $ <=1 S Trimethoprim/Sulfametho $ >=320 R (NF) indicates non-formulary drug at [facility]. Approval by Infectious Disease Specialist required before non-formulary drugs may be ordered and/or dispensed. Stenotrophomonas maltophilia: REACTION Levofloxacin $ >=8 R Trimethoprim/Sulfametho $ >=320 R (NF) indicates non-formulary drug at [facility]. Approval by Infectious Disease Specialist required before non-formulary drugs may be ordered and/or dispensed. Performed By: #### M100.1400 #### [facility] [address], [address] PROGRESS Observed: 06/14/2018 Status: COMPLETED Source: MARTIN 8:19 AM [facility] REPOSITORY HNO ID: [id number] Author: Volodymyr Gilbert Cma Service: (none) Author Type: (none) Type: Progress Notes Filed: 06/14/2018 8:21 AM Note Text: Left message for ZENA Lopez, to return call #[phone] BASIC METABOLIC Collected: 06/13/2018 Status: F Source: VALE PROFILE (BMP) 5:20 AM [facility] REPOSITORY TYPE CODE TESTS RESULT OUT OF RANGE REFERENCE UNITS LAB L501.0100 74-106 mg/dL Normal GLU 90 Result Comment: Please note revised GLUCOSE reference range effective 2017. LAB L501.1000 7-18 mg/dL High BUN 45 LAB L501.1100 0.55-1.02 mg/dL High CREAT,SERUM 1.21 Result Comment: The validity of the calculated GFR AND GFRAA in patients over 70 years has not been determined. Clinical correlation is essential. LAB L501.1110 >60 mL/min Low EST GFR 45 Result Comment: Non- GFR Calc LAB L501.1115 >60 mL/min Low EST GFR - AA 55 Result Comment: GFR Calc LAB L501.1255 ml/min Normal Estimated CRCL 31.49 LAB L501.1300 10-20 RATIO High BUN/CRE 37.2 LAB L501.2200 8.5-10 mg/dL Low .1 CA 8.4 LAB L501.5300 136-14 mmol/L Normal 5 NA 139 LAB L501.5600 3.5-5. mmol/L Normal 1 K 4.9 LAB L501.5900 98-107 mmol/L Normal CL 103 LAB L501.6100 21.0-3 mmol/L Normal 2.0 CO2 29.0 LAB L501.6200 5-15 Normal GAP 7 Performed By: #### L500.2500 #### [facility] [address] [place], [place], [address] PROTHROMBIN TIME W/INR Collected: 06/12/2018 Status: F Source: VALE 5:15 AM [facility] REPOSITORY TYPE CODE TESTS RESULT OUT OF RANGE REFERENCE UNITS LAB L300.4150 11.7-14.9 SECONDS High PROTIME 31.2 LAB L300.4200 Normal INR 3.0 Performed By: #### L300.3900 #### [facility] [address], [address] BASIC METABOLIC Collected: 06/12/2018 Status: F Source: VALE PROFILE (BMP) 5:15 AM [facility] REPOSITORY TYPE CODE TESTS RESULT OUT OF RANGE REFERENCE UNITS LAB L501.0100 74-106 mg/dL Normal GLU 89 Result Comment: Please note revised GLUCOSE reference range effective 2017. LAB L501.1000 7-18 mg/dL High BUN 62 LAB L501.1100 0.55-1.02 mg/dL High CREAT,SERUM 1.55 Result Comment: The validity of the calculated GFR AND GFRAA in patients over 70 years has not been determined. Clinical correlation is essential. LAB L501.1110 >60 mL/min Low EST GFR 34 Result Comment: Non- GFR Calc LAB L501.1115 >60 mL/min Low EST GFR - AA 41 Result Comment: GFR Calc LAB L501.1255 ml/min Normal Estimated CRCL 24.58 LAB L501.1300 10-20 RATIO High BUN/CRE 40.0 LAB L501.2200 8.5-10 mg/dL Low .1 CA 8.3 LAB L501.5300 136-14 mmol/L Normal 5 NA 139 LAB L501.5600 3.5-5. mmol/L Normal 1 K 4.9 LAB L501.5900 98-107 mmol/L Normal CL 101 LAB L501.6100 21.0-3 mmol/L Normal 2.0 CO2 29.0 LAB L501.6200 5-15 Normal GAP 9 Performed By: #### L500.2500 #### [facility] [address] [place], [address] BASIC METABOLIC Collected: 06/10/2018 Status: F Source: VALE PROFILE ([facility]) 7:38 AM [facility] REPOSITORY TYPE CODE TESTS RESULT OUT OF RANGE REFERENCE UNITS LAB L501.0100 74-106 mg/dL High GLU 109 Result Comment: Fasting Glucose result from 100 to 125 mg/dL suggests IMPAIRED HOMEOSTASIS per A.D.A. criteria. Please note revised GLUCOSE reference range effective 2017. LAB L501.1000 7-18 mg/dL High BUN 80 LAB L501.1100 0.55-1.02 mg/dL High CREAT,SERUM 2.02 Result Comment: The validity of the calculated GFR AND GFRAA in patients over 70 years has not been determined. Clinical correlation is essential. LAB L501.1110 >60 mL/min Low EST GFR 25 Result Comment: Non- GFR Calc LAB L501.1115 >60 mL/min Low EST GFR - AA 30 Result Comment: GFR Calc LAB L501.1255 ml/min Normal Estimated CRCL 18.86 LAB L501.1300 10-20 RATIO High BUN/CRE 39.6 LAB L501.2200 8.5-10 mg/dL Normal .1 CA 8.6 LAB L501.5300 136-14 mmol/L Low 5 NA 134 LAB L501.5600 3.5-5. mmol/L Normal 1 K 4.9 LAB L501.5900 98-107 mmol/L Normal CL 98 LAB L501.6100 21.0-3 mmol/L Normal 2.0 CO2 27.0 LAB L501.6200 5-15 Normal GAP 9 Performed By: #### L500.2500 #### [facility] [address] [place], [address] PROTHROMBIN TIME W/INR Collected: 06/09/2018 Status: F Source: HODGES 8:45 AM [facility] REPOSITORY TYPE CODE TESTS RESULT OUT OF RANGE REFERENCE UNITS LAB L300.4150 11.7-14.9 SECONDS High PROTIME 33.5 LAB L300.4200 Normal INR 3.3 Performed By: #### L300.3900 #### [facility] [address] [place], [address] CBC W/DIFF, AUTOMATED Collected: 06/09/2018 Status: F Source: HODGES 5:15 AM [facility] REPOSITORY TYPE CODE TESTS RESULT OUT OF RANGE REFERENCE UNITS LAB L100.1000 4.4-11.0 K/mm3 Normal WBC 8.3 LAB L100.1200 4.2-5.4 M/mm3 Low RBC 3.58 LAB L100.1300 12.0-15.0 g/dl Low HGB 9.6 LAB L100.1400 37-47 % Low HCT 32.1 LAB L100.1500 81-99 fL Normal MCV 89.7 LAB L100.1600 27.0-32.0 pg Low MCH 26.8 LAB L100.1700 32-36 g/gl Low MCHC 29.9 LAB L100.1810 11.6-14.6 % High RDW CV 16.0 LAB L100.1820 35.1-43.9 fl High RDW SD 51.7 LAB L100.1900 150-450 K/mm3 Normal PLT 273 LAB L100.2000 6.2-12.0 fl Normal MPV 9.9 LAB L100.2100 47-70 % High NEUT% 87.2 LAB L100.2200 19-41 % Low LY% 10.7 LAB L100.2300 0-10 % Normal MONO% 1.4 LAB L100.2400 0-5 % Normal EO% 0.5 LAB L100.2500 0-1 % Normal BASO% 0.1 LAB L100.2550 0.0-0.9 % Normal IM GRAN % 0.100 Result Comment: IG% - Immature Granulocytes (promyelocytes, myelocytes and metamyelocytes) > 1% indicates that a LEFT SHIFT is Present. LAB L100.2620 2.0-7.7 X10 3/uL Normal Absolute Neut 7.2 LAB L100.2720 0.83-4.51 X10 3/ul Normal Absolute Lymph 0.89 Performed By: #### L100.0100 #### [facility] [address] [facility]. [place], [place], [address] BASIC METABOLIC Collected: 06/09/2018 Status: F Source: HODGES PROFILE (BMP) 5:15 AM [facility] REPOSITORY TYPE CODE TESTS RESULT OUT OF RANGE REFERENCE UNITS LAB L501.0100 74-106 mg/dL High GLU 124 Result Comment: Fasting Glucose result from 100 to 125 mg/dL suggests IMPAIRED HOMEOSTASIS per A.D.A. criteria. Please note revised GLUCOSE reference range effective 2017. LAB L501.1000 7-18 mg/dL High BUN 78 LAB L501.1100 0.55-1.02 mg/dL High CREAT,SERUM 2.47 Result Comment: The validity of the calculated GFR AND GFRAA in patients over 70 years has not been determined. Clinical correlation is essential. LAB L501.1110 >60 mL/min Low EST GFR 20 Result Comment: Non- GFR Calc LAB L501.1115 >60 mL/min Low EST GFR - AA 24 Result Comment: GFR Calc LAB L501.1255 ml/min Normal Estimated CRCL 15.43 LAB L501.1300 10-20 RATIO High BUN/CRE 31.6 LAB L501.2200 8.5-10 mg/dL Low .1 CA 8.1 LAB L501.5300 136-14 mmol/L Low 5 NA 132 LAB L501.5600 3.5-5. mmol/L High 1 K 5.9 LAB L501.5900 98-107 mmol/L Low CL 97 LAB L501.6100 21.0-3 mmol/L Normal 2.0 CO2 27.0 LAB L501.6200 5-15 Normal GAP 8 Performed By: #### L500.2500 #### [facility] [address] [place], [place], [address] BASIC METABOLIC Collected: 06/08/2018 Status: F Source: HODGES PROFILE (BMP) 10:46 PM [facility] REPOSITORY TYPE CODE TESTS RESULT OUT OF RANGE REFERENCE UNITS LAB L501.0100 74-106 mg/dL Normal GLU 91 Result Comment: Please note revised GLUCOSE reference range effective 2017. LAB L501.1000 7-18 mg/dL High BUN 79 LAB L501.1100 0.55-1.02 mg/dL High CREAT,SERUM 2.87 Result Comment: The validity of the calculated GFR AND GFRAA in patients over 70 years has not been determined. Clinical correlation is essential. LAB L501.1110 >60 mL/min Low EST GFR 17 Result Comment: Non- GFR Calc LAB L501.1115 >60 mL/min Low EST GFR - AA 20 Result Comment: GFR Calc LAB L501.1255 ml/min Normal Estimated CRCL 13.28 LAB L501.1300 10-20 RATIO High BUN/CRE 27.5 LAB L501.2200 8.5-10 mg/dL Normal .1 CA 8.5 LAB L501.5300 136-14 mmol/L Low 5 NA 130 LAB L501.5600 3.5-5. mmol/L High 1 K 5.6 LAB L501.5900 98-107 mmol/L Low CL 95 LAB L501.6100 21.0-3 mmol/L Normal 2.0 CO2 30.0 LAB L501.6200 5-15 Normal GAP 5 Performed By: #### L500.2500 #### [facility] [address] [place], [place], [address] CBC W/DIFF, AUTOMATED Collected: 06/08/2018 Status: F Source: VALE 10:46 PM [facility] REPOSITORY TYPE CODE TESTS RESULT OUT OF RANGE REFERENCE UNITS LAB L100.1000 4.4-11.0 K/mm3 Normal WBC 7.7 LAB L100.1200 4.2-5.4 M/mm3 Low RBC 3.82 LAB L100.1300 12.0-15.0 g/dl Low HGB 10.5 LAB L100.1400 37-47 % Low HCT 34.6 LAB L100.1500 81-99 fL Normal MCV 90.6 LAB L100.1600 27.0-32.0 pg Normal MCH 27.5 LAB L100.1700 32-36 g/gl Low MCHC 30.3 LAB L100.1810 11.6-14.6 % High RDW CV 16.3 LAB L100.1820 35.1-43.9 fl High RDW SD 52.1 LAB L100.1900 150-450 K/mm3 Normal PLT 322 LAB L100.2000 6.2-12.0 fl Normal MPV 10.4 LAB L100.2100 47-70 % Normal NEUT% 57.5 LAB L100.2200 19-41 % Normal LY% 26.3 LAB L100.2300 0-10 % High MONO% 11.3 LAB L100.2400 0-5 % Normal EO% 4.0 LAB L100.2500 0-1 % Normal BASO% 0.4 LAB L100.2550 0.0-0.9 % Normal IM GRAN % 0.500 Result Comment: IG% - Immature Granulocytes (promyelocytes, myelocytes and metamyelocytes) > 1% indicates that a LEFT SHIFT is Present. LAB L100.2620 2.0-7.7 X10 3/uL Normal Absolute Neut 4.4 LAB L100.2720 0.83-4.51 X10 3/ul Normal Absolute Lymph 2.03 Performed By: #### L100.0100 #### [facility] [address] [place], [place], [address] URINALYSIS, COMPLETE Collected: 06/08/2018 Status: F Source: VALE 10:40 PM [facility] REPOSITORY Order Comment: How was Urine Obtained? BLADDER TAP TYPE CODE TESTS RESULT OUT OF RANGE REFERENCE UNITS LAB L400.3000 Yellow COLOR Normal Yellow LAB L400.3050 Clear Normal CLARITY Clear LAB L400.3200 Normal mg/dl Normal GLUCOSE, UR Normal LAB L400.3300 Negative mg/dL Normal BILIRUBIN URINE Negative LAB L400.3400 Negative mg/dl High 5 KETONE UR LAB L400.3465 1.002-1.030 Normal SP.GR. DIPSTX 1.015 LAB L400.3550 5.0 - 8.0 pH UR Normal 5.0 LAB L400.3600 Negative mg/dl High PROT 15 DIPSTX LAB L400.3700 Normal mg/dl Normal UROBILI Normal LAB L400.3750 Negative Normal NITRITE UR Negative LAB L400.3780 Negative /ul Normal OCCULT BLOOD-UR Negative LAB L400.3800 Negative /ul High LEUK 25 ESTERASE LAB L400.4050 0-5 /hpf WBC 0 Normal SEEN LAB L400.4100 0-5 /hpf 0 Normal RBC-UA SEEN LAB L400.4150 5-10 /hpf SQUAM 0 Normal EPI SEEN LAB L400.4300 None Seen /hpf 0 Normal BACTERIA SEEN LAB L400.4350 <or=2+ /hpf 0 Normal MUCUS, URINE SEEN Performed By: #### L400.0001 #### [facility] [place], [place], [address] Observed: 06/08/2018 Status: F Source: VALE CULTURE, URINE 10:40 PM [facility] REPOSITORY Urine Culture Culture exhibits no growth. Performed By: #### M100.0650 #### [facility] [place], [place], [address] CHEST 1 VIEW Observed: 06/08/2018 Status: F Source: VALE (PORTABLE) 10:08 PM [facility] REPOSITORY [facility] Imaging Services [address] [place] [address] Chest 1 View (Portable) MR#: [id number] Acct: [id number] Name: ROSA BELTRAN Rep #: [id number] : 1935 F 82 From: Javier Serrano MD PCP: Main Nemwan MD Status: ADM IN Study: Chest 1 View (Portable) Date of Exam: 06/08/18 Exam# [id number] Ordering Dr: Brody Sweet MD STUDY: X-RAY CHEST REASON FOR EXAM: Female, 82 years old. Shortness of breath TECHNIQUE: Frontal view of the chest COMPARISON: 06/05/2018 FINDINGS: There are stable mild emphysematous changes noted in the lungs. There are stable chronically increased interstitial markings. There are minimal congestive changes which are decreased when compared with the prior exam. There are no focal infiltrates. There are no pleural effusions. There is no pneumothorax. The heart is enlarged, but stable. There are degenerative changes noted in the shoulders. RAD/Chest 1 View (Portable) IMPRESSION: Interval pulmonary vascular congestion which is decreased when compared with the prior exam. Electronically Signed: Javier Serrano, at 23:11 EDT Tel , Service support , CC: Brody wSeet MD; Mani Newman MD Stereotype Finisher: Signed ABDOMEN SINGLE VIEW Observed: 06/08/2018 Status: F Source: VALE (PORTABLE) 10:08 PM [facility] REPOSITORY [facility] Imaging Services [address] [place] [address] Abdomen Single View (Portable) MR#: [id number] Acct: [id number] Name: ROSA BELTRAN Rep #: [id number] : 1935 F 82 From: Javier Serrano MD PCP: Mani Newman MD Status: ADM IN Study: Abdomen Single View (Portable) Date of Exam: 06/08/18 Exam# [id number] Ordering Dr: Brody Sweet MD ADDENDUM by Javier Serrano MD on 06/08/18 at 2313 RAD/Abdomen Single View (Portable) IMPRESSION: No bowel obstruction. Constipation. Electronically Signed: Javier Serrano, at 23:13 EDT Tel , Service support , 06/08/18 2320 Date cc: Brody Sweet MD; Mani Newman MD * Signed ADDENDUM by Javier Serrano MD on 06/08/18 at 2313 ADDENDUM Correction: The impression should read: 06/08/183 Date cc: Brody Sweet MD; Mani Newman MD * Signed STUDY: X-RAY - ABDOMEN/PELVIS REASON FOR EXAM: Female, 82 years old. Pain TECHNIQUE: 2 frontal views of the abdomen. COMPARISON: None. FINDINGS: There is no bowel obstruction. There is a large amount of stool in the colon, consistent with constipation. There are surgical clips noted in the upper abdomen. There are degenerative changes noted in the spine. RAD/Abdomen Single View (Portable) IMPRESSION: No bowel obstruction. The patient. Electronically Signed: Javier Serrano, at 23:13 EDT Tel , Service support , CC: Brody Sweet MD; Mani Newman MD Stereotype Finisher: Signed PROTHROMBIN TIME W/INR Collected: 06/08/2018 Status: F Source: VALE 5:10 AM [facility] REPOSITORY TYPE CODE TESTS RESULT OUT OF RANGE REFERENCE UNITS LAB L300.4150 11.7-14.9 SECONDS High PROTIME 30.9 LAB L300.4200 Normal INR 3.0 Performed By: #### L300.3900 #### [facility] [address] [facility] [place], [address] 12 LEAD ELECTROCARDIOGRAM Observed: 06/07/2018 Status: F Source: VALE 11:22 AM [facility] REPOSITORY [facility] Cardiovascular Services [address] [place] [address] 12 Lead EKG 06/04/181913 MR#: [id number] Acct: [id number] Name: ROSA BELTRAN Rep #: [id number] : 1935 82 From: Maicol Hawk MD Attending Dr: Status: DEP ER Ordering Dr: Jay Nicholas MD Date: 06/05/18 Location: ED Sex: F N Admitted: Test Reason : CP Blood Pressure : / mmHG Vent. Rate : 071 BPM Atrial Rate : 357 BPM P-R Int : 000 ms QRS Dur : 088 ms QT Int : 354 ms P-R-T Axes : 000 -23 -01 degrees QTc Int : 384 ms Atrial fibrillation / flutter Inferior infarct , age undetermined, cannot be excluded Anterior infarct , age undetermined ,cannot be excluded Abnormal ECG Confirmed by JOSIAH RUIZ, MAICOL ([id number]), make up editor LAURA JAMES ([id number]) on 06/07/2018 11:22:05 AM Referred By: KEE Confirmed By:MAICOL HAWK MD 06/07/18 1122 Date Maicol Hwak MD CC: Jay Nicholas MD; Mani Newman MD Signed 12 LEAD ELECTROCARDIOGRAM Observed: 06/07/2018 Status: F Source: VALE 10:08 AM [facility] REPOSITORY [facility] Cardiovascular Services [address] [place] [address] 12 Lead EKG 06/05/18 1307 MR#: [id number] Acct: [id number] Name: ROSA BELTRAN Rep #: [id number] : 1935 82 From: Maicol Hawk MD Attending Dr: Kee RUIZ,Brody Santiago Status: ADM IN Ordering Dr: Brody Sweet MD Date: 06/04/18 Location: TCU Sex: F N Admitted: 05/25/18 Test Reason : [employer]BER ON TCU Blood Pressure : / mmHG Vent. Rate : 068 BPM Atrial Rate : 059 BPM P-R Int : 000 ms QRS Dur : 098 ms QT Int : 362 ms P-R-T Axes : 000 033 012 degrees QTc Int : 384 ms Atrial fibrillation Low voltage QRS (LIMB LEADS) Abnormal ECG Confirmed by JOSIAH RUIZ, MAICOL ([id number]), make up editor LAURA JAMES ([id number]) on 06/07/2018 10:08:05 AM Referred By: CARMENCITA Confirmed By:MAICOL HAWK MD 06/07/18 1008 Date Maicol Hawk MD CC: Brody Sweet MD; Mani Newman MD Signed PROGRESS Observed: 06/07/2018 Status: COMPLETED Source: VICTOR 10:06 AM [facility] REPOSITORY HNO ID: [id number] Author: Volodymyr Gilbert Cma Service: (none) Author Type: (none) Type: Progress Notes Filed: 06/07/2018 10:06 AM Note Text: jessica returned my call and lmom. She states Rosa is still at SNF and no discharge planning in place as of yet. PROGRESS Observed: 06/07/2018 Status: COMPLETED Source: VICTOR 8:59 AM [facility] REPOSITORY HNO ID: [id number] Author: Volodymyr Gilbert Cma Service: (none) Author Type: (none) Type: Progress Notes Filed: 06/07/2018 9:00 AM Note Text: Left message for SW to return call #[phone] EMERGENCY DEPARTMENT Observed: 06/05/2018 Status: F Source: HODGES SUMMARY 3:47 PM [facility] REPOSITORY [facility] Medical Records Department [address] [place] [address] Emergency Department Summary 06/05/18 1329 MR#: [id number] Acct: [id number] Name: ROSA BELTRAN Rep #: [id number] : 1935 82 From: Jay Nicholas MD PCP: Mani Newman MD Status: REG ER - ER Visit Summary Date of Service: 06/05/18 Chief Complaint: Chest pain History of Present Illness: The patient is a 82 F who presents with chest pain. Patient is complaining of pain that goes from her back into her chest. This started a while back. She is currently in TCU for rehab. She has very significant lymphedema bilaterally. She also feels short of breath. She does not give much history as to why she is having this pain. She cannot give me specific reasons as to what it feels like except that is burning. Physical Examination: Vital signs reviewed. HEENT exam unremarkable. Heart is regular rate and rhythm without murmurs. Lungs are clear to auscultation. Abdomen is soft and nontender. Extremities reveal significant lymphedema bilaterally. Her legs are wrapped. Skin exam normal. Neurologic exam reveals that she can answer questions appropriately when she is awake but after you stop asking questions she gets drowsy. Test Results: EKG is sinus rhythm with a rate of 68. No ST changes. Hemoglobin 9.9, sodium 134. Creatinine 1.66. Troponin normal. ABG is 7.413/49/74/31 Emergency Department Course and Treatment: Patient complained of no chest pain in the emergency department but she did complain of leg pain which is chronic. She was given her daily dose of oxycodone as well as Tylenol. Her chest x-ray does reveal some mild interstitial infiltrate. I discussed this with Dr. Sweet. He believes the patient can go back up to the TCU floor. Treatment Plan: [] Disposition: Discharge to TCU Impression: Chest pain resolved This note was generated with [employer] software. It may contain incorrect words, spelling, and punctuation that were not noted in review of the chart prior to signing ED Disposition - Plan for ED Patient: Chief Complaint: Chest Pain Referrals: Mani Newman MD [Primary Care Provider] - What to do if you have Problems For any increased pain, shortness of breath, bleeding, nausea or vomiting, chest pain, or any unexpected problems, contact your Primary Care Provider. Call [facility] ([phone]) or report to the closest Emergency Room. Call 911 if necessary. 06/05/181546 <Electronically signed by Jay Nicholas MD> Date Jay Nicholas MD Cosigner Signature (If Indicated): Date CC: Mani Newman MD DISCHARGE INSTRUCTION Observed: 06/05/2018 Status: F Source: HODGES 3:47 PM [facility] REPOSITORY [facility] Medical Records Department [address] [place] [address] Discharge Instruction 06/05/181546 MR#: [id number] Acct: [id number] Name: ROSA BELTRAN Rep #: [id number] : 1935 82 From: Jay Nicholas MD PCP: Mani Newman MD Status: REG ER ED Disposition - Plan for ED Patient: Disposition: Home or Assisted Living Chief Complaint: Chest Pain Instructions: ED Chest Pain NonCardiac Referrals: Mani Newman MD [Primary Care Provider] - What to do if you have Problems For any increased pain, shortness of breath, bleeding, nausea or vomiting, chest pain, or any unexpected problems, contact your Primary Care Provider. Call [facility] ([phone]) or report to the closest Emergency Room. Call 911 if necessary. 06/05/181546 <Electronically signed by Jay Nicholas MD> Date Jay Nicholas MD Cosigner Signature (If Indicated): Date CC: Mani Newman MD BLOOD GASES BY CPS Collected: 06/05/2018 Status: F Source: VALE 2:03 PM [facility] REPOSITORY TYPE CODE TESTS RESULT OUT OF RANGE REFERENCE UNITS LAB L9000.9990 Normal BLD GAS TYPE ART LAB L9001.1000 L Normal SITE Brachial LAB L9001.1010 NA Normal ELIN TEST LAB L9001.1050 O2 Normal Delivery Dev Nasal Can LAB L9001.1055 /min Normal LPM 3.0 LAB L9001.1104 ED Normal Results To MD LAB L9001.1105 Normal Time Given 1355 LAB L9001.1110 7.35-7.45 pH Normal - I-STAT 7.41 LAB L9001.1210 35-45 mmHg High pCO2 - ISTAT 49.1 LAB L9001.1310 75-100 mmHG Low 74 PO2 I-STAT LAB L9001.2300 22-26 mmol/L High HCO3 ISTAT 31.4 LAB L9001.2400 -2 to +2 mmol/L High BE 7 ISTAT LAB L9001.2415 mmol/L 33 Normal TOTAL CO2 ISTAT LAB L9001.2425 95-99 % 95 Normal SO2 ISTAT Performed By: #### L9000.0800 #### [facility] Laboratory Point of Care [address] [address] CHEST 1 VIEW Observed: 06/05/2018 Status: F Source: VALE (PORTABLE) 1:25 PM [facility] REPOSITORY [facility] Imaging Services [address] [place] [address] Chest 1 View (Portable) MR#: [id number] Acct: [id number] Name: ROSA BELTRAN Rep #: [id number] : 1935 F 82 From: Chintan Trinidad MD PCP: Mani Newman MD Status: REG ER Study: Chest 1 View (Portable) Date of Exam: 06/05/18 Exam# [id number] Ordering Dr: Jay Nicholas MD STUDY: X-RAY CHEST REASON FOR EXAM: Female, 82 years old. Chest pain and bradycardia. Atrial fibrillation, CHF and COPD. TECHNIQUE: Portable chest COMPARISON: 08/02/2017. FINDINGS: Hazy infiltrates perihilar bilateral superimposed upon underlying COPD/emphysema without dense focal consolidation. No visible effusion or pneumothorax. Mild cardiomegaly. RAD/Chest 1 View (Portable) IMPRESSION: Cardiopulmonary features favor edema superimposed upon underlying COPD/emphysema. Electronically Signed: Chintan Taoney, at 15:39 EDT Tel , Service support , CC: Jay Nicholas MD; Mani Newman MD Stereotype Finisher: Signed CBC W/DIFF, AUTOMATED Collected: 06/05/2018 Status: F Source: VALE 1:00 PM [facility] REPOSITORY TYPE CODE TESTS RESULT OUT OF RANGE REFERENCE UNITS LAB L100.1000 4.4-11.0 K/mm3 Normal WBC 8.3 LAB L100.1200 4.2-5.4 M/mm3 Low RBC 3.69 LAB L100.1300 12.0-15.0 g/dl Low HGB 9.9 LAB L100.1400 37-47 % Low HCT 33.6 LAB L100.1500 81-99 fL Normal MCV 91.1 LAB L100.1600 27.0-32.0 pg Low MCH 26.8 LAB L100.1700 32-36 g/gl Low MCHC 29.5 LAB L100.1810 11.6-14.6 % High RDW CV 16.3 LAB L100.1820 35.1-43.9 fl High RDW SD 54.3 LAB L100.1900 150-450 K/mm3 Normal PLT 285 LAB L100.2000 6.2-12.0 fl Normal MPV 9.8 LAB L100.2100 47-70 % Normal NEUT% 61.7 LAB L100.2200 19-41 % Normal LY% 23.3 LAB L100.2300 0-10 % High MONO% 10.2 LAB L100.2400 0-5 % Normal EO% 4.1 LAB L100.2500 0-1 % Normal BASO% 0.5 LAB L100.2550 0.0-0.9 % Normal IM GRAN % 0.200 Result Comment: IG% - Immature Granulocytes (promyelocytes, myelocytes and metamyelocytes) > 1% indicates that a LEFT SHIFT is Present. LAB L100.2620 2.0-7.7 X10 3/uL Normal Absolute Neut 5.1 LAB L100.2720 0.83-4.51 X10 3/ul Normal Absolute Lymph 1.94 Performed By: #### L100.0100 #### [facility] [address], [address] BASIC METABOLIC Collected: 06/05/2018 Status: F Source: HODGES PROFILE ([facility]) 1:00 PM [facility] REPOSITORY TYPE CODE TESTS RESULT OUT OF RANGE REFERENCE UNITS LAB L501.0100 74-106 mg/dL High GLU 112 Result Comment: Fasting Glucose result from 100 to 125 mg/dL suggests IMPAIRED HOMEOSTASIS per A.D.A. criteria. Please note revised GLUCOSE reference range effective 2017. LAB L501.1000 7-18 mg/dL High BUN 53 LAB L501.1100 0.55-1.02 mg/dL High CREAT,SERUM 1.66 Result Comment: The validity of the calculated GFR AND GFRAA in patients over 70 years has not been determined. Clinical correlation is essential. LAB L501.1110 >60 mL/min Low EST GFR 32 Result Comment: Non- GFR Calc LAB L501.1115 >60 mL/min Low EST GFR - AA 38 Result Comment: GFR Calc LAB L501.1255 ml/min Normal Estimated CRCL 21.99 LAB L501.1300 10-20 RATIO High BUN/CRE 31.9 LAB L501.2200 8.5-10 mg/dL Low .1 CA 8.2 LAB L501.5300 136-14 mmol/L Low 5 NA 134 LAB L501.5600 3.5-5. mmol/L Normal 1 K 4.7 LAB L501.5900 98-107 mmol/L Low CL 97 LAB L501.6100 21.0-3 mmol/L High 2.0 CO2 33.0 LAB L501.6200 5-15 Low GAP 4 Performed By: #### L500.2500, L501.4010 #### [facility] [address], [address] TROPONIN-I Collected: 06/05/2018 Status: F Source: HODGES 1:00 PM [facility] REPOSITORY TYPE CODE TESTS RESULT OUT OF RANGE REFERENCE UNITS LAB L501.4010 <0.045 ng/mL Normal < 0.015 TROPONIN-I Result Comment: TROPONIN-I EXPECTED VALUES <0.045 Negative 0.045 - 0.590 Consistent with Cardiac Damage > OR = 0.600 Critical Value Not every elevated troponin is indicative of CO. These values should be used with clinical judgement in examining the patient's clinical picture for diagnosis. To establish a diagnosis of CO versus myocardial injury, there must be a demonstrated rise and/or fall in the troponin values, in addition to ischemic symptoms, EKG changes, new regional wall motion abnormality, and/or angiographical evidence. PLEASE NOTE: REFERENCE RANGES EDITED 18 Performed By: #### L500.2500, L501.4010 #### [facility] [address], [address] BEDSIDE GLUCOSE Collected: 06/05/2018 Status: F Source: HODGES 12:48 PM [facility] REPOSITORY TYPE CODE TESTS RESULT OUT OF REFERENCE UNITS RANGE LAB L501.080 70-110 mg/dL High BEDSIDE GLU 116 Result Comment: MANAGEMENT OF PATIENT CARE PER NURSING PROTOCOL Performed By: #### L501.080 #### [facility] Laboratory Point of Care [address] [address] CONSULTATION Observed: 06/05/2018 Status: F Source: VALE 10:28 AM [facility] REPOSITORY [facility] Medical Records Department [address] [place] [address] Consultation 06/05/18 [facility] MR#: [id number] Acct: [id number] Name: ROSA BELTRAN Rep #: [id number] : 1935 82 From: Carla Flor MD PCP: Mani Newman MD Status: ADM IN Y Location: [place] [address] Problem List (1) Venous stasis ulcer of right lower extremity Status: Chronic Reason for Consult: mrsa Consulted by: Dr. Sweet History of Present Illness: The patient is a 82 year old F with chronic venous stasis transferred to TCU from [place] due to nonhealing RLE ulcer. Reports ulcer present for several weeks with severe pain, heavy clear drainage, some redness, some chills. Wound cx and ucx done here. Augmentin started, leg worsening. Full ROS Performed and neg except as noted above. 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) Vitamin D deficiency (Chronic) Neuropathy (Chronic) 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) Malnutrition (Chronic) Ulcer of right leg (Chronic) Cellulitis of right lower extremity (Chronic) Leg ulcer, left (Chronic) Edema leg (Chronic) Lymphedema of lower extremity (Chronic) Congestive heart failure (Chronic) History of myocardial infarction (Chronic) Incontinence of urine (Chronic) Hypertension (Chronic) Morbid obesity (Chronic) Hypothyroidism (Chronic) Hypercholesterolemia (Chronic) Osteoarthritis (arthritis due to wear and tear of joints) (Chronic) Rheumatoid arthritis (Chronic) Allergies/Adverse Reactions: Allergies No Known Allergies Allergy (Verified 08/01/17 12:37) Home Medications: Ambulatory Orders Medication Instructions Recorded Warfarin [Coumadin] 3 mg PO DAILY 01/17/17 Acetaminophen [Pain Relief Extra 1,000 mg PO Q8H PRN PRN 04/25/17 Strength] Vital Signs Temp Pulse Resp BP Pulse Ox 98.9 F 60 16 119/63 97 06/04/18 19:12 06/05/18 05:50 06/05/18 05:50 06/04/18 19:12 06/05/18 06:50 Oxygen Flow Rate (L/min) 2 Oxygen Delivery Method Nasal Cannula Weight: 91.3 kg Body Mass Index (BMI) 35.9 Microbiology Past 72 Hours 05/31/18 13:30 Gram Stain - Final Wound - Leg, Right Wound Culture - Final Laboratory Tests Past 24 Hrs PT 24.9 H INR 2.2 - Other Studies Radiology: [] reviewed Other Studies: [] Route of nutrition/ use of supplements: [] Nutritional Intake: [] IV Site: [] Vitale Catheter: [] - Physical Exam General: Alert, Oriented x3, Cooperative, No apparent distress HEENT: Atraumatic, Normocephalic Neck: Supple, No Nodes Lungs: Clear to auscultation, Normal air movement Cardiovascular: Irregular Rate Abdomen: Soft, Non Tender, Non-Distended Extremities: Diminished Peripheral Pulses, Edema Skin: Ulcer/ Wound - RLE large shallow ulcer with mild surrounding erythema Musculoskeletal: No Tenderness to Palpation of Joints or Extremities Neurological: Cranial nerves II-XII grossly intact - Assessment/Plan Antibiotics: [] Assessment/Plan: [] RLE infected ulcer - cx with burkholderia x2, mrsa, and corynebacterium. On augmentin. Will add linezolid and cipro to cover the growth on cxs. proteus complicated uti - covered by augmentin Will follow, thank you. 06/05/18 1028 <Electronically signed by Carla Flor MD> Date Carla Flor MD Cosigner Signature (if applicable): Date CC: Carla Flor MD; Mani Newman MD Signed PROTHROMBIN TIME W/INR Collected: 06/05/2018 Status: F Source: VALE 5:47 AM [facility] REPOSITORY TYPE CODE TESTS RESULT OUT OF RANGE REFERENCE UNITS LAB L300.4150 11.7-14.9 SECONDS High PROTIME 24.9 LAB L300.4200 Normal INR 2.2 Performed By: #### L300.3900 #### [facility] [address], [address] BASIC METABOLIC Collected: 06/03/2018 Status: F Source: VALE PROFILE (BMP) 7:21 AM [facility] REPOSITORY TYPE CODE TESTS RESULT OUT OF RANGE REFERENCE UNITS LAB L501.0100 74-106 mg/dL Normal GLU 83 Result Comment: Please note revised GLUCOSE reference range effective 2017. LAB L501.1000 7-18 mg/dL High BUN 48 LAB L501.1100 0.55-1.02 mg/dL High CREAT,SERUM 1.29 Result Comment: The validity of the calculated GFR AND GFRAA in patients over 70 years has not been determined. Clinical correlation is essential. LAB L501.1110 >60 mL/min Low EST GFR 42 Result Comment: Non- GFR Calc LAB L501.1115 >60 mL/min Low EST GFR - AA 51 Result Comment: GFR Calc LAB L501.1255 ml/min Normal Estimated CRCL 29.53 LAB L501.1300 10-20 RATIO High BUN/CRE 37.2 LAB L501.2200 8.5-10 mg/dL Low .1 CA 7.9 LAB L501.5300 136-14 mmol/L Low 5 NA 135 LAB L501.5600 3.5-5. mmol/L Normal 1 K 4.9 LAB L501.5900 98-107 mmol/L Low CL 96 LAB L501.6100 21.0-3 mmol/L High 2.0 CO2 34.0 LAB L501.6200 5-15 Normal GAP 5 Performed By: #### L500.2500 #### [facility] [address], [address] CBC W/DIFF, AUTOMATED Collected: 06/02/2018 Status: F Source: VALE 5:10 AM [facility] REPOSITORY TYPE CODE TESTS RESULT OUT OF RANGE REFERENCE UNITS LAB L100.1000 4.4-11.0 K/mm3 Normal WBC 7.0 LAB L100.1200 4.2-5.4 M/mm3 Low RBC 3.42 LAB L100.1300 12.0-15.0 g/dl Low HGB 9.4 LAB L100.1400 37-47 % Low HCT 31.1 LAB L100.1500 81-99 fL Normal MCV 90.9 LAB L100.1600 27.0-32.0 pg Normal MCH 27.5 LAB L100.1700 32-36 g/gl Low MCHC 30.2 LAB L100.1810 11.6-14.6 % High RDW CV 16.4 LAB L100.1820 35.1-43.9 fl High RDW SD 53.0 LAB L100.1900 150-450 K/mm3 Normal PLT 240 LAB L100.2000 6.2-12.0 fl Normal MPV 10.3 LAB L100.2100 47-70 % Normal NEUT% 58.9 LAB L100.2200 19-41 % Normal LY% 23.7 LAB L100.2300 0-10 % High MONO% 12.7 LAB L100.2400 0-5 % Normal EO% 3.4 LAB L100.2500 0-1 % Normal BASO% 0.7 LAB L100.2550 0.0-0.9 % Normal IM GRAN % 0.600 Result Comment: IG% - Immature Granulocytes (promyelocytes, myelocytes and metamyelocytes) > 1% indicates that a LEFT SHIFT is Present. LAB L100.2620 2.0-7.7 X10 3/uL Normal Absolute Neut 4.1 LAB L100.2720 0.83-4.51 X10 3/ul Normal Absolute Lymph 1.66 Performed By: #### L100.0100 #### [facility] [address] [place], [place] [address] [place], [place], [address] BASIC METABOLIC Collected: 06/02/2018 Status: F Source: HODGES PROFILE (BMP) 5:10 AM [facility] REPOSITORY TYPE CODE TESTS RESULT OUT OF RANGE REFERENCE UNITS LAB L501.0100 74-106 mg/dL Normal GLU 81 Result Comment: Please note revised GLUCOSE reference range effective 2017. LAB L501.1000 7-18 mg/dL High BUN 46 LAB L501.1100 0.55-1.02 mg/dL High CREAT,SERUM 1.24 Result Comment: The validity of the calculated GFR AND GFRAA in patients over 70 years has not been determined. Clinical correlation is essential. LAB L501.1110 >60 mL/min Low EST GFR 44 Result Comment: Non- GFR Calc LAB L501.1115 >60 mL/min Low EST GFR - AA 53 Result Comment: GFR Calc LAB L501.1255 ml/min Normal Estimated CRCL 30.73 LAB L501.1300 10-20 RATIO High BUN/CRE 37.1 LAB L501.2200 8.5-10 mg/dL Low .1 CA 7.8 LAB L501.5300 136-14 mmol/L Low 5 NA 135 LAB L501.5600 3.5-5. mmol/L High 1 K 5.2 LAB L501.5900 98-107 mmol/L Low CL 97 LAB L501.6100 21.0-3 mmol/L Normal 2.0 CO2 32.0 LAB L501.6200 5-15 Normal GAP 6 Performed By: #### L500.2500 #### [facility] [address], [address] URINALYSIS, COMPLETE Collected: 06/01/2018 Status: F Source: HODGES 4:45 PM [facility] REPOSITORY Order Comment: Order Date: 06/01/18 How was Urine Obtained? CATHETER SPECIMEN TYPE CODE TESTS RESULT OUT OF RANGE REFERENCE UNITS LAB L400.3000 Yellow COLOR Normal Yellow LAB L400.3050 Clear Normal CLARITY Cloudy LAB L400.3200 Normal mg/dl Normal GLUCOSE, UR Normal LAB L400.3300 Negative mg/dL Normal BILIRUBIN URINE Negative LAB L400.3400 Negative mg/dl Normal KETONE UR Negative LAB L400.3465 1.002-1.030 Normal SP.GR. DIPSTX 1.015 LAB L400.3550 5.0 - 8.0 pH UR Normal 8.0 LAB L400.3600 Negative mg/dl High PROT 30 DIPSTX LAB L400.3700 Normal mg/dl Normal UROBILI Normal LAB L400.3750 Negative High NITRITE UR Positive LAB L400.3780 Negative /ul High 50 OCCULT BLOOD-UR LAB L400.3800 Negative /ul High LEUK ESTERASE 500 LAB L400.4050 0-5 /hpf WBC Normal 50-100 SEEN LAB L400.4100 0-5 /hpf Normal RBC-UA 0-5 SEEN LAB L400.4150 5-10 /hpf SQUAM 0 Normal EPI SEEN LAB L400.4300 None Seen /hpf 1+ Normal BACTERIA LAB L400.4350 <or=2+ /hpf 0 Normal MUCUS, URINE SEEN LAB L400.4900 1+ Normal AMORPHOUS Performed By: #### L400.0001 #### [facility] [address] [place], [place], [address] Observed: 06/01/2018 Status: F Source: VALE CULTURE, URINE 4:45 PM [facility] REPOSITORY Order Date: 06/01/18 Urine Culture ORGANISM 1: Proteus mirabilis [place] Count >100,000 Proteus mirabilis: REACTION Amoxacillin/Clavulanic Acid $ 4 S Ampicillin $ >=32 R Ampicillin/Sulbactam $ 8 S Cefazolin $ 8 S Cefepime $ <=1 S Ceftriaxone $ <=1 S Ciprofloxacin $ >=4 R Ertapenim $$$ <=0.5 S Gentamicin $ <=1 S Levofloxacin $ >=8 R Nitrofurantoin $ 64 R Piperacillin/Tazobactam $$ <=4 S Tobramycin $ <=1 S Trimethoprim/Sulfametho $ >=320 R (NF) indicates non-formulary drug at [facility]. Approval by Infectious Disease Specialist required before non-formulary drugs may be ordered and/or dispensed. Performed By: #### M100.0650 #### [facility] [place], [place], [address] PROTHROMBIN TIME W/INR Collected: 06/01/2018 Status: F Source: VALE 5:05 AM [facility] REPOSITORY TYPE CODE TESTS RESULT OUT OF RANGE REFERENCE UNITS LAB L300.4150 11.7-14.9 SECONDS High PROTIME 20.9 LAB L300.4200 Normal INR 1.8 Performed By: #### L300.3900 #### [facility] [place], [address] Observed: 05/31/2018 Status: F Source: VALE CULTURE, DEEP WOUND 1:30 PM [facility] REPOSITORY Gram Stain Gram Stain 2+ Red Blood Cells 1+ Gram positive cocci 1+ Gram negative rods Wound Culture #4 There are no CLSI standards for interpretation of this Drug/Organism combination. RESULTS CALLED TO ASHUTOSH/SHA 06/03/18 0740 Norah Silverio. REPORT READ BACK BY SAME. Copy of report sent to Infection Control Printer [id number] 06/03/18 0740 GLYNN. ORGANISM 1: Burkholderia cepacia Amount Growth 2+ ORGANISM 2: Burkholderia cepacia Amount Growth 2+ ORGANISM 3: Meth. resistant Staph. aureus Amount Growth 3+ ORGANISM 4: Corynebacterium striatum Amount Growth 2+ Burkholderia cepacia: REACTION Ceftazidime *NF 4 S Ceftriaxone $ >=64 R Ciprofloxacin $ <=0.25 S Gentamicin $ <=1 S Imipenem *NF 2 S Levofloxacin $ 1 S Piperacillin/Tazobactam $$ 8 S Tobramycin $ <=1 S Trimethoprim/Sulfametho $ >=320 R (NF) indicates non-formulary drug at [facility]. Approval by Infectious Disease Specialist required before non-formulary drugs may be ordered and/or dispensed. Burkholderia cepacia: REACTION Ceftazidime *NF >=64 R Ceftriaxone $ >=64 R Ciprofloxacin $ <=0.25 S Gentamicin $ <=1 S Imipenem *NF 1 S Levofloxacin $ 2 S Piperacillin/Tazobactam $$ >=128 R Tobramycin $ <=1 S Trimethoprim/Sulfametho $ >=320 R (NF) indicates non-formulary drug at [facility]. Approval by Infectious Disease Specialist required before non-formulary drugs may be ordered and/or dispensed. Meth. resistant Staph. aureus: REACTION Benzylpenicillin NF >=0.5 R Cefoxitin *NF + Clindamycin $$ >=8 R Inducable Clindamycin [place] - Erythromycin $ >=8 R Gentamicin $ <=0.5 S Levofloxacin $ >=8 R Linezolid $$$$ 2 S Oxacillin NF >=4 R Tigecycline $$$$ <=0.12 S Rifampin $$ <=0.5 S Tetracycline NF >=16 R Trimethoprim/Sulfametho $ <=10 S Vancomycin $ <=0.5 S (NF) indicates non-formulary drug at [facility]. Approval by Infectious Disease Specialist required before non-formulary drugs may be ordered and/or dispensed. * CLSI guidelines does not recommend testing of cephalosporins. This interpretation is deduced from Beta-lactam/penicillin results. Cult, Anaerobic No anaerobic bacteria isolated. Performed By: #### M100.1500 #### [facility] [address] [place], [address] PROGRESS Observed: 05/31/2018 Status: COMPLETED Source: VICTOR 9:19 AM [facility] REPOSITORY HNO ID: [id number] Author: Volodymyr Gilbert [facility] Service: (none) Author Type: (none) Type: Progress Notes Filed: 05/31/2018 9:20 AM Note Text: Jessica returned my call and states they're having a meeting for Rosa today. She doesn't anticipate she'll be in SNF for a long period of time. Estimates 1-2 weeks. I will call back next week for another update and to see if any discharge plans are put in place. PROGRESS Observed: 05/31/2018 Status: COMPLETED Source: VICTOR 9:04 AM [facility] REPOSITORY HNO ID: [id number] Author: Volodymyr Gilbert [employer] Service: (none) Author Type: (none) Type: Progress Notes Filed: 05/31/2018 9:07 AM Note Text: Called and lmom for Jessica to return my call if she has any updates/discharge planning for Rosa. PROTHROMBIN TIME W/INR Collected: 05/29/2018 Status: F Source: HODGES 5:20 AM [facility] REPOSITORY TYPE CODE TESTS RESULT OUT OF RANGE REFERENCE UNITS LAB L300.4150 11.7-14.9 SECONDS High PROTIME 20.7 LAB L300.4200 Normal INR 1.8 Performed By: #### L300.3900 #### [facility] [address] [facility] [address] [place], [place], [address] PROGRESS Observed: 05/26/2018 Status: COMPLETED Source: VICTOR 11:12 AM [facility] REPOSITORY HNO ID: [id number] Author: Volodymyr Gilbert [employer] Teacher Service: (none) Author Type: (none) Type: Progress Notes Filed: 05/26/2018 11:13 AM Note Text: Will call [facility] TCU next week for patient update/discharge planning. PROGRESS Observed: 05/26/2018 Status: COMPLETED Source: SALAZAR 10:49 AM [facility] REPOSITORY O ID: [id number] Author: Maritza Tian [facility] Service: (none) Author Type: Registered Nurse Type: Progress Notes Filed: 05/26/2018 11:13 AM Note Text: TRANSITION CARE MANAGEMENT (TCM) DISCHARGE TO POST ACUTE FACILITY POST ACUTE TRANSFER SUMMARY: -Pt discharged from F on 05/25/18. -Post Acute Facility Admitted to [facility] TCU -Admitted for: Ulcer of ankle, right, with fat layer exposed (HCC) PROTHROMBIN TIME W/INR Collected: 05/26/2018 Status: F Source: HODGES 5:05 AM [facility] REPOSITORY TYPE CODE TESTS RESULT OUT OF RANGE REFERENCE UNITS LAB L300.4150 11.7-14.9 SECONDS High PROTIME 19.9 LAB L300.4200 Normal INR 1.7 Performed By: #### L300.3900 #### [facility] [address] [place], [place] [address] [place], [address] BASIC METABOLIC Collected: 05/26/2018 Status: F Source: HODGES PROFILE (BMP) 5:05 AM [facility] REPOSITORY TYPE CODE TESTS RESULT OUT OF RANGE REFERENCE UNITS LAB L501.0100 74-106 mg/dL High GLU 108 Result Comment: Fasting Glucose result from 100 to 125 mg/dL suggests IMPAIRED HOMEOSTASIS per A.D.A. criteria. Please note revised GLUCOSE reference range effective 2017. LAB L501.1000 7-18 mg/dL High BUN 20 LAB L501.1100 0.55-1.02 mg/dL Normal CREAT,SERUM 0.79 Result Comment: The validity of the calculated GFR AND GFRAA in patients over 70 years has not been determined. Clinical correlation is essential. LAB L501.1110 >60 mL/min Normal EST GFR 74 Result Comment: Non- GFR Calc LAB L501.1115 >60 mL/min Normal EST GFR - AA 90 Result Comment: GFR Calc LAB L501.1255 ml/min Normal Estimated CRCL 38.10 LAB L501.1300 10-20 RATIO High BUN/CRE 25.4 LAB L501.2200 8.5-10 mg/dL Low .1 CA 8.1 LAB L501.5300 136-14 mmol/L Normal 5 NA 137 LAB L501.5600 3.5-5. mmol/L Normal 1 K 4.4 LAB L501.5900 98-107 mmol/L Normal CL 104 LAB L501.6100 21.0-3 mmol/L Normal 2.0 CO2 28.0 LAB L501.6200 5-15 Normal GAP 5 Performed By: #### L500.2500 #### [facility] [place], [address] CBC W/DIFF, AUTOMATED Collected: 05/26/2018 Status: F Source: HODGES 5:05 AM [facility] REPOSITORY TYPE CODE TESTS RESULT OUT OF RANGE REFERENCE UNITS LAB L100.1000 4.4-11.0 K/mm3 Normal WBC 5.6 LAB L100.1200 4.2-5.4 M/mm3 Low RBC 3.51 LAB L100.1300 12.0-15.0 g/dl Low HGB 9.5 LAB L100.1400 37-47 % Low HCT 32.3 LAB L100.1500 81-99 fL Normal MCV 92.0 LAB L100.1600 27.0-32.0 pg Normal MCH 27.1 LAB L100.1700 32-36 g/gl Low MCHC 29.4 LAB L100.1810 11.6-14.6 % High RDW CV 17.0 LAB L100.1820 35.1-43.9 fl High RDW SD 56.5 LAB L100.1900 150-450 K/mm3 Normal PLT 250 LAB L100.2000 6.2-12.0 fl Normal MPV 9.6 LAB L100.2100 47-70 % Normal NEUT% 69.6 LAB L100.2200 19-41 % Low LY% 17.8 LAB L100.2300 0-10 % Normal MONO% 8.1 LAB L100.2400 0-5 % Normal EO% 3.6 LAB L100.2500 0-1 % Normal BASO% 0.5 LAB L100.2550 0.0-0.9 % Normal IM GRAN % 0.400 Result Comment: IG% - Immature Granulocytes (promyelocytes, myelocytes and metamyelocytes) > 1% indicates that a LEFT SHIFT is Present. LAB L100.2620 2.0-7.7 X10 3/uL Normal Absolute Neut 3.9 LAB L100.2720 0.83-4.51 X10 3/ul Normal Absolute Lymph 0.99 Performed By: #### L100.0100 #### [facility] [address] [place], [address] CNPTOUTREACH Observed: 05/26/2018 Status: COMPLETED Source: VICTOR 12:00 AM [facility] REPOSITORY Patient Outreach (INTMWS) ROSA BELTRAN ([id number]) 1935 F Date Time Provider Department 05/26/18 MARITZA RUSSELL During your visit today, we recorded the following information about you: Maritza Tian RN 05/26/2018 11:13 AM Signed TRANSITION CARE MANAGEMENT (TCM) DISCHARGE TO POST ACUTE FACILITY POST ACUTE TRANSFER SUMMARY: -Pt discharged from [facility] on 05/25/18. -Post Acute Facility Admitted to [facility] -Admitted for: Ulcer of ankle, right, with fat layer exposed (HCC) Volodymyr Gilbert [facility] 05/26/2018 11:13 AM Signed Will call [facility] next week for patient update/discharge planning. Volodymyr Gilbert [facility] 05/31/2018 9:07 AM Signed Called and lmom for Jessica to return my call if she has any updates/discharge planning for Rosa. Volodymyr Gilbert [facility] 05/31/2018 9:20 AM Signed Jessica returned my call and states they're having a meeting for Mchenry today. She doesn't anticipate she'll be in SNF for a long period of time. Estimates 1-2 weeks. I will call back next week for another update and to see if any discharge plans are put in place. Volodymyr Gilbert [facility] 06/07/2018 9:00 AM Signed Left message for to return call #[phone] Volodymyr Gilbert [facility] 06/07/2018 10:06 AM Signed jessica returned my call and lmom. She states Rosa is still at SNF and no discharge planning in place as of yet. Volodymyr Gilbert [facility] 06/14/2018 8:21 AM Signed Left message for ZENA Lopez, to return call #[phone] Volodymyr Gilbert [facility] 06/21/2018 9:13 AM Signed Spoke with ZENA Paul (jessica is out today) who states she'll check on her status and get back to me. Volodymyr Gilbert [facility] 06/21/2018 12:24 PM Signed See discharge note. Rosa discharged 07/21/18 from TCU. Allergies As of Date: 05/26/2018 (No Known Allergies) Date Reviewed: 05/24/2018 Reviewed by: Anel (Rn) ELENA Briscoe - Fully Assessed Reason for Visit: Transition Of Care [4074] Prescriptions as of 05/26/2018 Sig: TORSEMIDE 20 MG TABLET Take 1 tablet by mouth once d* VITAMIN D2 ORAL Take by mouth. LISINOPRIL 2.5 MG TABLET Take 1 tablet by mouth every * OMEPRAZOLE 20 MG CAPSULE,LUIS MIGUEL* Take 1 capsule by mouth once * DOCUSATE SODIUM 100 MG CAPSULE Take 1 capsule by mouth once * SODIUM HYPOCHLORITE 0.125 % S* Dakin's moistened gauze packi* WARFARIN 3 MG TABLET Take 1 tablet by mouth daily * Patient taking differently: Take 3 mg by mouth once daily* GABAPENTIN 300 MG CAPSULE Take 1 capsule by mouth twice* VITAMIN C ORAL Take 1 tablet by mouth twice * SILVER SULFADIAZINE 1 % TOPIC* Apply to leg wounds as direct* ACETAMINOPHEN 500 MG TABLET Take 1,000 mg by mouth every * ASPIRIN 81 MG TABLET,DELAYED * Take 81 mg by mouth every jean* MULTIVITAMIN-IRON 9 MG-FOLIC * Take 1 tablet by mouth once d* LEVOTHYROXINE 100 MCG TABLET Take 1 tablet by mouth once d* COMPOUNDED PRESCRIPTION Calcium Alginate 4x4 Dressing* Problem List As Of Date 05/26/2018 Noted Resolved Gastroesophageal reflux disease without esophag*INVALID FOR* Chronic atrial fibrillation (HCC) [I48.2] INVALID FOR* Priority: B More... Pure hypercholesterolemia [E78.00] Hypertension [I10] Priority: D Acquired hypothyroidism [E03.9] Priority: F CAD (coronary artery disease) [I25.10] More... 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 More... More... Respiratory failure with hypoxia (HCC) [J96.91] INVALID FOR*05/25/2018 Priority: Severe Heart failure with preserved ejection fraction *INVALID FOR* Priority: B More... More... Requires continuous at home supplemental oxygen*INVALID FOR*01/20/2018 More... Adjustment disorder with depressed mood [F43.21]INVALID FOR* Constipation [K59.00] INVALID FOR* Leg ulcer, right, with fat layer exposed (HCC) *INVALID FOR* Ulcer of ankle, right, with fat layer exposed (*INVALID FOR* Priority: A More... Venous stasis ulcer (HCC) [I83.009, L97.909] INVALID FOR* Priority: A Anticoagulation goal of INR 2 to 3 [Z51.81, Z79*INVALID FOR* Priority: C More... Class 2 obesity in adult [E66.9] INVALID FOR* Priority: M More... Hypotension due to hypovolemia [I95.89, E86.1] INVALID FOR*05/25/2018 Priority: D More... Pressure injury of skin, stage 2 [L89.92] INVALID FOR* Priority: E More... H/O noncompliance with medical treatment, prese*INVALID FOR* Priority: E More... CKD (chronic kidney disease), stage III (HCC) [*INVALID FOR* Priority: D More... Hyperkalemia [E87.5] INVALID FOR*05/24/2018 More... Peripheral vascular disease (HCC) [I73.9] INVALID FOR* Priority: C More... Sundowning [F05] INVALID FOR*05/25/2018 More... Encounter Status:Closed by VOLODYMYR GILBERT CMA on 05/26/18 HISTORY AND PHYSICAL Observed: 05/25/2018 Status: F Source: HODGES EXAM 8:31 PM [facility] REPOSITORY [facility] Medical Records Department [address] [address] History and Physical 05/25/182015 MR#: [id number] Acct: [id number] Name: Rosa Beltran Rep #: [id number] : 1935 82 From: Brody Sweet MD PCP: Mani Newman MD Status: ADM IN Y Location: [place] [address] Problem List (1) Venous stasis ulcer of right lower extremity Status: Chronic (2) Coronary artery disease Status: Chronic (3) Atrial fibrillation Status: Chronic (4) COPD (chronic obstructive pulmonary disease) Status: Chronic (5) Sleep apnea Status: Chronic (6) Edema Status: Chronic (7) Neuropathic pain Status: Chronic (8) GERD (gastroesophageal reflux disease) Status: Chronic (9) Migraine Status: Chronic (10) Obesity Status: Chronic (11) Vitamin D deficiency Status: Chronic (12) Hypertension Status: Chronic Qualifiers: (13) Hypothyroidism Status: Chronic (14) Osteoarthritis (arthritis due to wear and tear of joints) Status: Chronic History of Present Illness Date of Admission: 05/25/18 Chief Complaint: Here for rehabilitation, strengthening, wound care, prior to discharge home. The patient is a 82 year old Female with below past medical history, [facility] resident, admitted to [facility] 05/22/2018 with non-healing venous stasis ulcer of right lower extremity. 08/01/2017 Patient was admitted to [facility] with bilateral lower extremity cellulitis, treated with antibiotics, whether she had cellulitis or venous stasis dermatitis was difficult to determine. Her wound culture did grow MSSA which was treated with short course of cephalexin. 05/25/2018 Admit to TCU with debility, here for rehabilitation, strengthening, wound care, prior to discharge home. 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) Vitamin D deficiency (Chronic) Neuropathy (Chronic) 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) Malnutrition (Chronic) Ulcer of right leg (Chronic) Cellulitis of right lower extremity (Chronic) Leg ulcer, left (Chronic) Edema leg (Chronic) Lymphedema of lower extremity (Chronic) Congestive heart failure (Chronic) History of myocardial infarction (Chronic) Incontinence of urine (Chronic) Hypertension (Chronic) Morbid obesity (Chronic) Hypothyroidism (Chronic) Hypercholesterolemia (Chronic) Osteoarthritis (arthritis due to wear and tear of joints) (Chronic) Rheumatoid arthritis (Chronic) Allergies No Known Allergies Allergy (Verified 08/01/17 12:37) Home Medications: Ambulatory Orders Medication Instructions Recorded Warfarin [Coumadin] 3 mg PO DAILY 01/17/17 Acetaminophen [Pain Relief Extra 1,000 mg PO Q8H PRN PRN 04/25/17 Strength] Surgical History: herniorrhaphy, hysterectomy, total knee arthroplasty - Bilateral., tonsillectomy, - - Cardiac stents x 2, gastric bypass surgery, right ankle ORIF. 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 The patient's mother at the age of 90 with a history of arthritis. Paternal History Items: Heart Disease Review of Systems Constitutional: Denies: Chills, Fever, Weight Change HEENT: Denies: Head Aches, Sinus Congestion, Sinus Drainage Cardiovascular: Denies: Chest Pain, Palpitations Respiratory: Denies: Cough, Shortness of breath at rest, Sputum production Gastrointestinal: Denies: Abdominal Pain, Nausea, Vomiting Genitourinary: Denies: Dysuria Musculoskeletal: Denies: Joint Pain, Joint Tenderness Skin: Denies: Rash, Wounds Neurological: Denies: Numbness, Tingling, Focal weakness Psychiatric: Denies: Anxiety, Depression, Homicidal Ideations, Suicidal Ideations Hematologic/ Lymphatic: Denies: Easy Bruising, Easy Bleeding VTE Information - Inpt Only VTE Present on Admission: No VTE Mechan Device Prophylaxis: Knee High AURELIANO Hose VTE Pharm Prophylaxis ordered?: No Reason prophylaxis not ordered:: Treatment Not Indicated - Physical Exam General: Alert, Oriented x3, Cooperative HEENT: Atraumatic, PERRLA, EOMI, Normocephalic Neck: Supple, No JVD, Negative Carotid Bruits Lungs: Clear to auscultation, Normal air movement Cardiovascular: Regular rate, No murmurs Abdomen: Bowel Sounds Present, Soft, Non Tender Extremities: Capillary Refill Less than 3 Seconds, - - Bilateral lower extremities with compressive dressings. Skin: No rashes, No breakdown Musculoskeletal: No Tenderness to Palpation of Joints or Extremities Neurological: Cranial nerves II-XII grossly intact Psych/Mental Status: Normal Affect, Appropriate Weight: 94.801 kg Body Mass Index (BMI) 35.9 Assessment/Plan All Active Problems Right tibial fracture (Resolved) Cellulitis of the legs (Acute) 82 year old female with below past medical history hospitalized for non-healing right lower extremity venous stasis ulcer, admitted to TCU with debility, here for rehabilitation, strengthening, wound care, prior to discharge home. * Debility - PT/OT. * Pain - Tylenol 1000MG Q8H PRN mild pain. * Bowel - Miralax 17GM daily, Senna/colace 1 tablet BID, Dulcolax 10MG PO daily PRN. * Pneumonia vaccination - Administer Prevnar 13 and/or Pneumovax 23 as necessary. * DVT prophylaxis - Not necessary, already on warfarin. * RLE venous stasis ulcer - consult Anat Pizarro RN for wound management. * Vitamin C deficiency - Vitamin C 250MG daily. * Coronary Artery Disease - Lisinopril 2.5MG daily, Aspirin 81MG daily. * Nutrition - Ensure Enlive 120ML 4x/day, MVI daily. * Vitamin D deficiency - D2 50,000 units per week. * Edema - Lasix 40MG daily. * Neuropathic pain - Gabapentin 300MG BID. * Hypothyroidism - Levothyroxine 100MCG daily. * GERD - Pantoprazole 20MG daily. * Atrial Fibrillation - Warfarin 3MG daily, follow INR. 05/25/182030 <Electronically signed by Brody Sweet MD> Date Brody Sweet MD Cosigner Signature: Date (if applicable) CC: Brody Sweet MD; Mani Newman MD Signed CNDS Observed: 05/25/2018 Status: COMPLETED Source: VICTOR 5:14 PM CLINIC OTHER CAMPUS REPOSITORY HNO ID: [id number] Author: Shola Flores Service: Hospital Medicine Author Type: Physician Type: Discharge Summaries Filed: 05/25/2018 7:01 PM Note Text: DISCHARGE SUMMARY PATIENT NAME: Rosa Beltran ADMISSION DATE: 05/22/2018 DISCHARGE DATE: 05/25/2018 ATTENDING PHYSICIAN: Shola Flores MD REASON FOR HOSPITALIZATION: Wound infection DIAGNOSIS: Principal Problem: Ulcer of ankle, right, with fat layer exposed (HCC) Active Problems: Chronic atrial fibrillation (HCC) Heart failure with preserved ejection fraction (HCC) Peripheral vascular disease (HCC) CKD (chronic kidney disease), stage III ([facility]) Resolved Problems: Hypotension due to hypovolemia Hyperkalemia owning OPERATIONS DURING HOSPITALIZATION: None PROCEDURES DURING HOSPITALIZATION: No procedures performed HOSPITAL COURSE: Patient was send by wound clinic as her chronic wound was seeping serous discharge. She was recently admitted in the hospital one month ago for similar complaint. Wound culture at that time grew Pseudomonas and she was treated with antibiotics. She was started on vancomycin and ciprofloxacin (2 days) but she was afebrile, without leukocytosis. CRP and ESR was mildly elevated. Podiatry and ID was consulted. Wound care was done by podiatry. Antibiotics were eventually stopped. Due to IV diuresis patient became hypotensive and drowsy, lasix was held and her blood pressure improved with 500 ml IV bolus. She was discharged on PO torsemide 20 mg. Patient is discharged to SNF and will need wound follow-up and dressing changes. LABS AND PROCEDURES PENDING AT DISCHARGE: No pending results. CONSULTING TEAMS DURING HOSPITALIZATION: Infectious Disease: Dr. Lynn Wound/Podiatry PATIENT CONDITION AT DISCHARGE: Stable DISCHARGE DISPOSITION: Half-Way Facility BP 148/74 Pulse 62 Temp 37 ?C (98.6 ?F) (Oral) Resp 18 Ht 162.6 cm (5' 4) Wt 93.2 kg (205 lb 7.5 oz) SpO2 96% BMI 35.27 kg/m? GENERAL: Alert, No Distress SKIN: Wrinkled and dry EYES: PERRLA, EOMI OROPHARYNX: No thrush. NECK: No jugulovenous distention, No carotid bruits, Carotid pulse normal contour, Supple LUNGS: Bilateral coarse rhonchi and crackles in lung bases CARDIAC: Irregularly irregular rhythm, no murmurs ABDOMEN: Abdomen soft, non-tender, BS normal, No masses or organomegaly EXTREMITIES: No edema, deformity or right ankle. Right ankle had 3 ulcers, extending to subcutaneous tissue - size ranging from 4-5 cm x 3-4 cm x 0.3-0.5 cm in depth. NEURO: Exam deferred PULSES: 2+ radial INFORMATION PROVIDED TO PATIENT: (To pull info documented from the DC Instruct Orderset Complete O/S First): WOUND CARE INSTRUCTIONS DRESSING CHANGE Order Comments: wash with dakins, xeroform, 4x4s, abds, kerlix, ANKIT with mild compression, BID Freq: Daily (every day) (I) DISCHARGE MEDICATION: Discharge Medication List as of 05/25/2018 3:40 PM START taking these medications torsemide (DEMADEX) 20 mg tablet Take 1 tablet by mouth once daily. Normal, Disp-30 tablet, R-0, Long-term CONTINUE these medications which have NOT CHANGED ergocalciferol, vitamin D2, (VITAMIN D2 ORAL) Take by mouth. Historical Med lisinopril (ZESTRIL) 2.5 mg tablet Take 1 tablet by mouth every evening. Normal, Disp-30 tablet, R-5, Long-term Dx: 1. Essential hypertension omeprazole (PRILOSEC) 20 mg capsule Take 1 capsule by mouth once daily. Normal, Disp-30 capsule, R-5, Long-term Dx: 1. Gastroesophageal reflux disease without esophagitis docusate sodium (COLACE) 100 mg capsule Take 1 capsule by mouth once daily as needed for Constipation. Normal, Disp-30 capsule, R-5 Dx: 1. Constipation, unspecified constipation type sodium hypochlorite (DAKIN'S SOLUTION) 0.125 % soln Dakin's moistened gauze packing every other day to wound for bacterial control. Normal, Disp-473 mL, R-2 Dx: 1. Venous stasis ulcer of right lower leg with edema of right lower leg (HCC) warfarin (COUMADIN) 3 mg tablet Take 1 tablet by mouth daily as directed. Patient is taking 2mg Tuesday and and 3mg other days. Med Update, Long-term gabapentin (NEURONTIN) 300 mg capsule Take 1 capsule by mouth twice daily for 180 days. Normal, Disp-180 capsule, R-1, Long-term Dx: 1. Polyneuropathy (HCC) ASCORBIC ACID (VITAMIN C ORAL) Take 1 tablet by mouth twice daily. Historical Med, Long-term silver sulfADIAZINE (SILVADENE) 1 % cream Apply to leg wounds as directed. Normal, Disp-50 g, R-1 Dx: 1. Stasis dermatitis of left lower extremity with venous ulcer due to chronic peripheral venous hypertension (HCC) 2. Stasis dermatitis of right lower extremity with venous ulcer due to chronic peripheral venous hypertension (HCC) acetaminophen (TYLENOL) 500 mg tablet Take 1,000 mg by mouth every 8 hours as needed. Historical Med aspirin, enteric coated (ASPIRIN, ENTERIC COATED) 81 mg EC tablet Take 81 mg by mouth every evening. Historical Med therapeutic multivitamin w/ iron (THERAGRAN-M) 9 mg iron-400 mcg tablet Take 1 tablet by mouth once daily. Historical Med levothyroxine (LEVOXYL) 100 mcg tablet Take 1 tablet by mouth once daily. Take on empty stomach. For Thyroid. Normal, Disp-30 tablet, R-11 COMPOUNDED PRESCRIPTION Calcium Alginate 4x4 Dressing, change daily Dx: Blister left leg with infection S80.822A, L08.9; Lymphedema I89.0. Wound dimensions: 4 x 3 cm Print RX, Disp-14 Each, R-0 STOP taking these medications Zinc Sulfate 220 mg tab Comments: Reason for Stopping: FUTURE APPOINTMENTS: Follow Up with PCP: Mani Newman MD TIME OF CARE (Use first blank if not applicable): TIME OF CARE: Discharge Management: I personally spent greater than 30 minutes involved in the discharge management of this patient. SIGNATURE: Shola Flores MD PATIENT NAME: Rosa Beltran DATE: May 25, 2018 TIME: 6:51 PM PAGER/CONTACT #: [phone] CASE MANAGEM Observed: 05/25/2018 Status: COMPLETED Source: [facility] 3:58 PM CLINIC OTHER CAMPUS REPOSITORY HNO ID: [id number] Author: Lisa (Rn) ELENA Irvin Service: Case Management Author Type: Registered Nurse Type: Care Mgt Progress Note Filed: 05/25/2018 4:05 PM Note Text: CARE MANAGEMENT DISCHARGE NOTE SERVICE DATE: 05/25/2018 SERVICE TIME: 3:58 PM LOS: 3 days Admission Date: 05/22/2018 DISCHARGE ARRANGEMENT (list agency and phone number) [facility]PC facility: Was an expedited discharge program used? No Provider: [facility] CAREGIVER ASSESSMENT: Caregiver is ready, willing and able to meet the patient's needs as recommended by the inter-professional team? Yes Patient's transition needs and plan for meeting these needs: SNF Does the patient have an acute stroke diagnosis, or has the patient had a stroke during this admission? No HANDOFF COMMUNICATION: Sap Consultant: Maritza Howe Primary Care Physician: Dr. Mani Newman CM discharge note routed to patients PSYCHIATRIC via [facility]. TRANSPORTATION ARRANGEMENTS: Mode of Transportation: Ambulette Transportation Agency and Phone #: [facility] ambulance ( [facility] ) [phone] / [phone]. Date of Trip: 05/25/18 Type of Service: Wheelchair Is Patient Medicaid Pending: No Discussion of financial coverage occurred with Patient . Cushion Former Location: [facility] Destination: [facility] Financial Care Management Responsibility: None Estimated Charge: NA Approving Mail Caller: MIKEY ADDITIONAL CONTACT RESOURCES: NA Needs Prior to Discharge: Accepting Facility IM letter given to Rosa Beltran on 05/15/18. Discharge order written for today. Patient stated she would need ambulette black pickler for transport. Notified the patient of potential cost to her for ambulette transport. Patient verbalized understanding. [facility] ambulette tranpsort set up for 4:30 black pickler. Notified RN, EMILY and patient of black pickler time. Notified [facility] of patients discharge today with a 4:30 black pickler time. Call placed to patients daughter in law Sheron per the patients request and notified her of the patients discharge today going to [facility] SNF with a 4:30 black pickler time. SIGNATURE: Lisa Irvin PATIENT NAME: Rosa Beltran DATE: May 25, 2018 TIME: 3:58 PM PAGER/CONTACT #: [phone] PA BONE 3 PHASE Observed: 05/25/2018 Status: F Source: VICTOR 3:20 PM CLINIC OTHER CAMPUS REPOSITORY * * *Final Report* * * DATE OF EXAM: May 25 2018 3:20PM AIDA 0009 - NM BONE 3 PHASE / PROCEDURE REASON: OSTEO OF BOTH LOWER LEGS * * * * Physician Interpretation * * * * THREE PHASE BONE SCAN CLINICAL HISTORY: Ulcer right lower leg TECHNIQUE: 21 mCi 99mTc MDP IV. A three phase study with attention to the lower legs, feet and ankles was performed. Immediate Blood flow, Blood pool and Delayed images with attention to the lower legs, ankles and feet obtained at 3-4 hours post injection. CORRELATION: X-ray 05/22/2018 RESULT: There is evidence of hyperemia on the flow and blood pool images to the right lower leg, ankle and foot with increased flow and increased soft tissue activity. Mild hyperemia to the left foot and left ankle region. Delayed images show increased activity in the right ankle right distal tibial region. Findings could be suggestive of osteomyelitis in the appropriate clinical setting. Soft tissue inflammation in the left lower leg. Activity in the rest of the feet, ankles likely degenerative/arthritic changes. IMPRESSION: Right lower extremity: Increased activity associated with hyperemia right distal tibial/right ankle region as described. Findings could be suggestive of osteomyelitis in the appropriate clinical setting. Stereotype Finisher: DWIGHT Transcribe Date/Time: May 28 2018 6:36P Dictated by : LASHA PATRICIA MD This examination was interpreted and the report reviewed and electronically signed by: LASHA PATRICIA MD on May 28 2018 6:47PM EST [id number] CASE MANAGEM Observed: 05/25/2018 Status: COMPLETED Source: [facility] 2:40 PM [facility] REPOSITORY HNO ID: [id number] Author: Lisa ParksRn) ELENA Irvin Service: Case Management Author Type: Registered Nurse Type: Care Mgt Progress Note Filed: 05/25/2018 2:40 PM Note Text: CARE MANAGEMENT PROGRESS NOTE SERVICE DATE: 05/25/2018 SERVICE TIME: 2:40 PM LOS: 3 days Took call from Xena Granda at [facility] SNF, she noted they are able to accept the patient. Spoke with the patient, she noted she will need ambulette transport to [facility] set up. CM department will continue to follow for DC needs. 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 Patient to use [facility] Bedside Delivery - NO prefer own pharmacy 2. If fax, patient would like us to fax prescriptions to Pharmacy of choice a. Pharmacy: b. Location: c. Phone: 3. Insurance card on file - N/A 4. Credit card for payment - N/A Patient wants to use local pharmacy. CASE MANAGEM Observed: 05/25/2018 Status: COMPLETED Source: [facility] 11:47 AM [facility] REPOSITORY HNO ID: [id number] Author: Lisa ParksRn) ELENA Irvin Service: Case Management Author Type: Registered Nurse Type: Care Mgt Progress Note Filed: 05/25/2018 12:31 PM Note Text: CARE MANAGEMENT PROGRESS NOTE SERVICE DATE: 05/25/2018 SERVICE TIME: 11:47 AM LOS: 3 days Needs Prior to Discharge: Accepting Facility Took call from Tia at [facility], she noted she spoke with the medical records library professor and they feel this patient needs a private room and they do not have a private room at this time. CM inquired if she can return to her current room and move to a private room when one is available. Tia noted the the medical records library professor said they are unable to take her back. Met with the patient and updated her on [facility] decision regarding not being able to take her back. SNF list provided to the patient, she noted she would like #1- [facility], #2- [facility] and #3- [facility]. Referral placed to [facility] and [facility]. CM department will continue to follow for DC needs. SIGNATURE: Lisa Irvin PATIENT NAME: Rosa Beltran DATE: May 25, 2018 TIME: 11:47 AM PAGER/CONTACT #: [phone] CONSULT PROG Observed: 05/25/2018 Status: COMPLETED Source: [facility] 10:40 AM [facility] OTHER CAMPUS REPOSITORY HNO ID: [id number] Author: Heather Lynn Service: Infectious Disease Author Type: Physician Type: Consult Progress Note Filed: 05/25/2018 10:42 AM Note Text: INFECTIOUS DISEASE PROGRESS NOTE Patient Name: Rosa Beltran Date: 05/25/2018 ASSESSMENT: 1. Right lower extremity chronic wound without any signs of active infection at this time. Her MRI in the past had been negative for osteomyelitis. There is no worsening wound drainage. 2. Encephalopathy, which has resolved. Etiology is uncertain. I doubt it is from an infection. 3. Rheumatoid arthritis, but not on any chronic immunosuppressives. 4. Peripheral arterial disease. 5. Coronary artery disease. 6. Hypothyroidism. 7. Chronic obstructive pulmonary disease. 8. Chronic atrial fibrillation. 9. Chronic kidney disease stage 3. PLAN: Continue wound care No abx for now D/w pt May need diuresis due to swelling LE INTERVAL HISTORY: ROS done with pt/RN and negative unless stated. No f/c/n/v/d. Feels ok. MEDICATIONS: reviewed. Current hospital medications: ondansetron (PF) 4 mg injection (ZOFRAN) 4 mg INTRAVENOUS q 4 H PRN HYDROcodone 5 mg - acetaminophen 325 mg tablet (NORCO) 1 tablet ORAL q 6 H PRN warfarin 3 mg tab(s) (COUMADIN) 3 mg ORAL DAILY - WARFARIN acetaminophen 1,000 mg tab(s) (TYLENOL) 1,000 mg ORAL q 8 H PRN gabapentin 300 mg cap(s) (NEURONTIN) 300 mg ORAL BID docusate sodium 100 mg cap(s) (COLACE) 100 mg ORAL DAILY PRN therapeutic multivitamin with iron (THERAGRAN-M) 1 tablet ORAL DAILY aspirin, enteric coated 81 mg tab(s) (ASPIRIN, ENTERIC COATED) 81 mg ORAL DAILY pantoprazole DR 20 mg tab(s) (PROTONIX) 20 mg ORAL DAILY levothyroxine 100 mcg tab(s) (SYNTHROID) 100 mcg ORAL DAILY silver sulfADIAZINE 1 % (SILVADENE,THERMAZENE) TOPICAL DAILY 0.9% NaCl 3-5 mL 3-5 mL INTRAVENOUS q 12 H PHYSICAL EXAM: Vital signs: BP 120/64 Pulse 64 Temp 36.6 ?C (97.9 ?F) (Oral) Resp 16 Ht 162.6 cm (5' 4) Wt 93.2 kg (205 lb 7.5 oz) SpO2 93% BMI 35.27 kg/m? Temp (24hrs), Av.8 ?C (98.2 ?F), Min:36.3 ?C (97.3 ?F), Max:37.2 ?C (99 ?F) General: alert, oriented, NAD Lungs: bilaterally clear to auscultation Heart: regular rate and rhythm Abdomen: soft, non tender, non distended, BS+ Extremities: no swollen joints 2+ edema LE b/l, RLE dressing Skin: no rash IV sites - wnl Lab data: reviewed Recent Labs 05/25/18 0600 05/24/18 0603 05/23/18 0628 05/22/18 1935 05/22/18 1837 05/22/18 1821 WBC 6.44 6.97 9.49 -- -- 8.27 HB 9.5* 9.4* 11.3* -- -- 11.6 PLT 244 258 293 -- -- 309 INR 1.8* 2.0* 2.0* -- -- 2.2* NA 135* 132* 134* -- -- 133* K 4.9 5.1 5.6* -- -- 5.5* CO2 26 24 25 -- -- 25 BUN 25* 32* 34* -- -- 36* CREAT 0.89 1.13* 1.25* -- -- 1.31* AST -- -- 32 -- -- 33 ALT -- -- 8 -- -- 9 TBILI -- -- 0.7 -- -- 0.5 ALKPHOS -- -- 74 -- -- 82 WSR -- -- -- -- 79* -- CRP -- -- -- -- 5.0* -- LACT -- -- -- 1.3 -- -- Microbiology data: reviewed Imaging data: reviewed Heather Lynn MD Pager: CASE MANAGEM Observed: 05/25/2018 Status: COMPLETED Source: [facility] 10:27 AM [facility] REPOSITORY HNO ID: [id number] Author: Lisa ParksRn) ELENA Irvin Service: Case Management Author Type: Registered Nurse Type: Care Mgt Progress Note Filed: 05/25/2018 10:29 AM Note Text: CARE MANAGEMENT PROGRESS NOTE SERVICE DATE: 05/25/2018 SERVICE TIME: 10:27 AM LOS: 3 days Needs Prior to Discharge: Accepting Facility Notified by Dr. Flores that the patient will be discharged today. Call placed to Tia at [facility], notified her that the patient is being discharged today and that I needed to confirm she is able to return to them. Tia is requesting updated notes sent over in [employer]. Updated notes sent. CM department will continue to follow for DC needs. SIGNATURE: Lisa Irvin PATIENT NAME: Rosa Beltran DATE: May 25, 2018 TIME: 10:27 AM PAGER/CONTACT #: [phone] CASE MANAGEM Observed: 05/25/2018 Status: COMPLETED Source: [facility] 10:11 AM [facility] REPOSITORY HNO ID: [id number] Author: Lisa ParksRn) ELENA Irvin Service: Case Management Author Type: Registered Nurse Type: Care Mgt Progress Note Filed: 05/25/2018 10:13 AM Note Text: CARE MANAGEMENT PROGRESS NOTE SERVICE DATE: 05/25/2018 SERVICE TIME: 10:11 AM LOS: 3 days Met with the patient and she noted she wants to notify [facility] that she wants to hold her bed. Dr. Wynn also in the room and he noted the patient may be ready for discharge today. Notified [facility] that the patient wishes to hold her bed and potential for discharge home today. CM department will continue to follow for DC needs. SIGNATURE: Lisa Irvin PATIENT NAME: Rosa Beltran DATE: May 25, 2018 TIME: 10:11 AM PAGER/CONTACT #: [phone] CONSULT PROG Observed: 05/25/2018 Status: COMPLETED Source: [facility] 8:58 AM [facility] OTHER CAMPUS REPOSITORY HNO ID: [id number] Author: Kapil Lopez Service: Podiatry Author Type: Resident Type: Consult Progress Note Filed: 05/25/2018 11:01 AM Note Text: INPATIENT PROGRESS NOTE SERVICE DATE: 05/25/2018 SERVICE TIME: 8:58 AM ASSESSMENT AND PLAN Principal Problem: Ulcer of ankle, right, with fat layer exposed (HCC) POA: Yes Assessment AND Plan: Active Problems: Chronic atrial fibrillation (HCC) POA: Yes Assessment AND Plan: Heart failure with preserved ejection fraction (HCC) POA: Yes Assessment AND Plan: Peripheral vascular disease (HCC) POA: Yes Assessment AND Plan: Hypotension due to hypovolemia POA: Yes Assessment AND Plan: CKD (chronic kidney disease), stage III (HCC) POA: Unknown Assessment AND Plan: POA: Unknown Assessment AND Plan: Resolved Problems: Hyperkalemia POA: Yes Assessment AND Plan: RLE venous statsis ulcerations Wound care ordered, wash with dakins, xeroform, 4x4s, abds, kerlix, ANKIT with mild compression, BID Offload wounds with offloading boots Follow wound cultures, 04/21/18 was growing PsAg MRI 04/21/18 negative for OM No leukocytosis Reviewed tib/fib and ankle XR Continue abx No current surgical plans Follow up with Dr Dempsey upon DC in 1 week SUBJECTIVE CHIEF COMPLAINT: right LE ulcers INTERVAL HPI: Patient seen and examined MEDICATIONS: Current hospital medications: ondansetron (PF) 4 mg injection (ZOFRAN) 4 mg INTRAVENOUS q 4 H PRN HYDROcodone 5 mg - acetaminophen 325 mg tablet (NORCO) 1 tablet ORAL q 6 H PRN warfarin 3 mg tab(s) (COUMADIN) 3 mg ORAL DAILY - WARFARIN acetaminophen 1,000 mg tab(s) (TYLENOL) 1,000 mg ORAL q 8 H PRN gabapentin 300 mg cap(s) (NEURONTIN) 300 mg ORAL BID docusate sodium 100 mg cap(s) (COLACE) 100 mg ORAL DAILY PRN therapeutic multivitamin with iron (THERAGRAN-M) 1 tablet ORAL DAILY aspirin, enteric coated 81 mg tab(s) (ASPIRIN, ENTERIC COATED) 81 mg ORAL DAILY pantoprazole DR 20 mg tab(s) (PROTONIX) 20 mg ORAL DAILY levothyroxine 100 mcg tab(s) (SYNTHROID) 100 mcg ORAL DAILY silver sulfADIAZINE 1 % (SILVADENE,THERMAZENE) TOPICAL DAILY 0.9% NaCl 3-5 mL 3-5 mL INTRAVENOUS q 12 H OBJECTIVE PHYSICAL EXAM: Patient Vitals for the past 24 hrs: BP Temp Temp src Pulse Resp SpO2 05/25/18 0751 120/64 36.6 ?C (97.9 ?F) Oral 64 16 93 % 05/25/18 0326 132/90 36.7 ?C (98.1 ?F) Oral 67 16 95 % 05/24/18 2353 123/66 37.2 ?C (99 ?F) Oral 68 16 97 % 05/24/18 1926 105/56 37 ?C (98.6 ?F) Oral 74 16 96 % 05/24/18 1637 98/54 36.7 ?C (98.1 ?F) Oral 63 16 96 % 05/24/18 1138 108/51 36.7 ?C (98.1 ?F) Oral 62 18 99 % 05/24/18 1055 101/61 36.3 ?C (97.3 ?F) Oral 75 16 100 % Body mass index is 35.27 kg/m?. GENERAL: Alert, no distress, cooperative LOWER EXTREMITY PHYSICAL EXAMINATION Vasc: DP/PT +1/4, +2 pitting edema Neuro: Intact epicritic sensation Derm: Right lateral/posterior calf ulceration 9.0x6.0x0.2cm 80% granular with 20% central proximal necrotic, fibrotic area, No probe to bone, superifical, tenderness with palpation, serosang drainage, no malodor, mild?erythema/edema R LE. ?Right medial ulceration 6.0x3.0x0.5cm, ?80%fibrotic, serosang drainage, mild jennifer-wound erythema, edema, stable. ? Musc: m/s +4/5 DATA: Diagnostic tests reviewed for today's visit: Most recent labs and imaging results. SIGNATURE: Kapil Lopez DPM PATIENT NAME: Rosa Beltran DATE: May 25, 2018 TIME: 8:58 AM PAGER: CBC Collected: 05/25/2018 Status: F Source: [facility] 6:00 AM [facility] OTHER CAMPUS REPOSITORY TYPE CODE TESTS RESULT OUT OF REFERENCE UNITS RANGE LAB WBC 3.70-11.00 k/uL WBC 6.44 LAB RBC 3.90-5.20 m/uL Low RBC 3.50 LAB HGB 11.5-15.5 g/dL Low Hemoglobin 9.5 LAB HCT 36.0-46.0 % Low Hematocrit 32.3 LAB MCV 80.0-100.0 fL MCV 92.3 LAB MCH 26.0-34.0 pG MCH 27.1 LAB MCHC 30.5-36.0 g/dL Low MCHC 29.4 LAB RDWCV 11.5-15.0 % RDW-CV High 17.3 LAB PLTCT 150-400 k/uL Platelet Count 244 LAB MPV 9.0-12.7 fL MPV 9.9 Performed By: #### CBC, PT, MG1, RFP #### [facility] [address] [place] [address] PROTIME Collected: 05/25/2018 Status: F Source: [facility] 6:00 AM [facility] OTHER [place] REPOSITORY TYPE CODE TESTS RESULT OUT OF RANGE REFERENCE UNITS LAB PSEC 9.7-13.0 sec High PT Sec 18.0 LAB INR 0.9-1.3 High PT INR 1.8 Result Comment: Vitamin K Antagonist (VKA) Therapeutic Range: INR 2 to 3 (Target INR of 2.5) Note: For patients treated with VKA drugs, such as warfarin, the [place] [employer] 2012 Guideline recommends a therapeutic INR range of 2 to 3 (target INR of 2.5). This recommendation includes high-risk patients with antiphospholipid syndrome with previous arterial or venous thromboembolism, current-generation mechanical or bioprosthetic aortic heart valve replacement. Note: Patients with mechanical aortic valve replacement and additional risk factors for thromboembolic events (atrial fibrillation, previous thromboembolism, LV dysfunction, hypercoagulable conditions) or an older generation mechanical AVR (i.e., ball in-Cage) or any mechanical MVR should have a INR therapeutic range of 2.5 to 3.5 (target INR of 3). Shweta GH, et al. Chest 2012, 141:7S-47S Genevieve RA, et al. [facility] 2017, 70: 252-289 Performed By: #### CBC, PT, MG1, RFP #### [facility] [address] [facility] [phone] MAGNESIUM Collected: 05/25/2018 Status: F Source: [facility] 6:00 AM [facility] OTHER CAMPUS REPOSITORY TYPE CODE TESTS RESULT OUT OF REFERENCE UNITS RANGE LAB MG 1.7-2.3 mg/dL Magnesium 1.9 Performed By: #### CBC, PT, MG1, RFP #### [facility] [address] [facility] [phone] RENAL FUNCTION PANEL Collected: 05/25/2018 Status: F Source: [facility] 6:00 AM [facility] OTHER [place] REPOSITORY TYPE CODE TESTS RESULT OUT OF REFERENCE UNITS RANGE LAB ALB 3.9-4.9 g/dL Low Albumin 2.6 LAB CA 8.5-10.2 mg/dL Low Calcium, Total 8.1 LAB PHOS 2.7-4.8 mg/dL Phosphorus 3.2 LAB GLU 74-99 mg/dL Glucose 97 Result Comment: The [place] Diabetes Association (ADA) provides guidance for cutoff values for fasting glucose and random glucose. The ADA defines fasting as no caloric intake for at least 8 hours. Fas ting plasma glucose results between 100 to 125 mg/dL indicate increased risk for diabetes (prediabetes). Fasting plasma glucose results greater than or equal to 126 mg/dL meet the criteria for diagnosis of diabetes. In the absence of unequivocal hyperglycemia, results should be confirmed by repeat testing. In a patient with classic symptoms of hyperglycemia or hyperglycemic crisis, random plasma glucose results greater than or equal to 200 mg/dL meet the criteria for diagnosis of diabetes. Reference: Standards of Medical Care in Diabetes 2016, [place] [employer] Association. Diabetes Care. 2016.39(Suppl 1). LAB BUN 7-21 mg/dL BUN High 25 LAB CRET 0.58-0.96 mg/dL Creatinine 0.89 LAB NA 136-144 mmol/L Low Sodium 135 LAB K 3.7-5.1 mmol/L Potassium 4.9 LAB CL 97-105 mmol/L Chloride 102 LAB CO2 22-30 mmol/L CO2 26 LAB AGAP 9-18 mmol/L Low Anion Gap 7 LAB GFRAA eGFR- Amer. >60 LAB GFRNAA . eGFR-All Other Races >60 Result Comment: eGFR (Estimated GFR) Units of measure: mL/min/1.73 meters squared eGFR is derived from the reexpressed MDRD Study equation using the following parameters: serum creatinine, age, gender and race. The creatinine assay has been calibrated to be traceable to IDMS. An eGFR <60 mL/min/1.73m2 for >3 months is consistent with chronic kidney disease. Refer to KDOQI guidelines for clinical interpretation. In patients with unstable renal function, e.g. those with acute kidney injury, the eGFR may not accurately reflect actual GFR. Performed By: #### CBC, PT, MG1, RFP #### [facility] [address] [facility] [phone] CNCO Observed: 05/25/2018 Status: COMPLETED Source: [facility] 12:00 AM CLINIC OTHER CAMPUS REPOSITORY Letter Text May 25, 2018 Rosa Beltran [address] [place] [id number] Dear Ms. Beltran, The nurses and staff of [facility] hope this letter finds you feeling well and progressing in your recovery. Our staff would like to thank you for trusting and choosing us for your health care needs. It was an honor for us to provide your nursing care. We know that placing our Patients First and maintaining a culture of continuous improvement each and every day, are essential to the success of our organization. I hope your stay with us has been positive. We want to hear from you. If you have any comments, questions or concerns about your hospital stay, please feel free to contact me, Ayanna Corley RN ([phone]) or email me at, Additionally, you will receive a survey in the mail asking you to rate the care you received while in the hospital. Please take the time to complete and send back the survey, as it is essential to our continued success. I personally review all the results and would appreciate your feedback. Thank you in advance for your participation and thank you for choosing the [facility] for your health needs. Sincerely, Nurse Mail Caller: Ayanna Corley RN ([phone] Unit: 4 [facility] PROGRESS Observed: 05/24/2018 Status: COMPLETED Source: [facility] 1:52 PM [facility] REPOSITORY HNO ID: [id number] Author: Jolynn Lowe (Pharmacist) Service: Pharmacy Author Type: Pharmacist Type: Progress Notes Filed: 05/24/2018 1:53 PM Note Text: PHARMACY VANCOMYCIN DOSING NOTE Patient Name: Rosa Beltran Admission Date: 05/22/2018 Date of Consult: 05/24/2018 Time of Consult: 1:52 PM 1. The primary service has discontinued vancomycin therapy. Pharmacy vancomycin dosing service will sign off. Thank you for allowing us to participate in this patient's care. Please contact pharmacy if questions. Jolynn Lowe, Pharmacist PLAN OF CARE Observed: 05/24/2018 Status: COMPLETED Source: [facility] 1:45 PM [facility] REPOSITORY HNO ID: [id number] Author: Heather Lynn Service: Infectious Disease Author Type: Physician Type: Plan of Care Filed: 05/24/2018 1:45 PM Note Text: Consult Dictated. Please call with questions. Will follow with you. Thank you. Heather Lynn MD Pager: [phone] Date: 05/24/2018 Time: 1:45 PM PROGRESS Observed: 05/24/2018 Status: COMPLETED Source: [facility] 11:17 AM [facility] REPOSITORY HNO ID: [id number] Author: Maki Yeager (Pharmacist) Service: Pharmacy Author Type: Pharmacist Type: Progress Notes Filed: 05/24/2018 11:19 AM Note Text: PHARMACY VANCOMYCIN DOSING NOTE Patient Name: Rosa Beltran Admission Date: 05/22/2018 Date of Consult: 05/24/2018 Time of Consult: 11:17 AM Indication: Skin/Soft tissue infection Goal Range: 10-20 mcg/mL RECOMMENDATIONS/PLAN: Pharmacy consulted for vancomycin dosing for Rosa eBltran, a 82 year old, female who is being treated with vancomycin 1. Patient is currently ordered Vancomycin 1.5 g IV q24h. Today is day 3 of therapy. 2. No vancomycin level has been drawn for this dosing regimen. 3. The present dose of vancomycin is the recommended dosage for this patient at this time. Continue therapy as prescribed. 4. The next vancomycin level will be ordered for 05/26/18 unless clinically indicated sooner. (Pharmacy will order) We will follow patient renal function, vancomycin levels and doses with you during the course of therapy. Additional recommendations will appear in follow up notes. If you have any questions, please contact pharmacy at [phone]. Age: [age] year old Allergies: ALLERGIES No Known Allergies Last 3 Encounter Wt Readings: Date: Wt: 05/22/2018 93.2 kg (205 lb 7.5 oz) 04/20/2018 96.6 kg (212 lb 15.4 oz) 04/14/2018 96.2 kg (212 lb 1.6 oz) Last 1 Encounter Ht Readings: Date: Ht: 05/22/2018 162.6 cm (5' 4) CrCl: 43.2 mL/min Temp (24hrs), Av.8 ?C (98.2 ?F), Min:36.3 ?C (97.3 ?F), Max:37.2 ?C (99 ?F) - Current Temp: 36.3 ?C (97.3 ?F) Labs BUN (mg/dL) Date Value 05/24/2018 32 (H) 05/23/2018 34 (H) 05/22/2018 36 (H) Creatinine (mg/dL) Date Value 05/24/2018 1.13 (H) 05/23/2018 1.25 (H) 05/22/2018 1.31 (H) WBC (k/uL) Date Value 05/24/2018 6.97 05/23/2018 9.49 05/22/2018 8.27 Vancomycin Levels: No results found for: DANISHA YEAGER PHARMACIST CASE MANAGEM Observed: 05/24/2018 Status: COMPLETED Source: [facility] 10:52 AM [facility] OTHER CAMPUS REPOSITORY O ID: [id number] Author: Anel (Rn) ELENA Schneider Service: Case Management Author Type: Registered Nurse Type: Care Mgt Progress Note Filed: 05/24/2018 10:54 AM Note Text: CARE MANAGEMENT PROGRESS NOTE SERVICE DATE: 05/24/2018 SERVICE TIME: 10:52 AM LOS: 2 days FREEDOM OF CHOICE GIVEN: Yes - CM met with patient at bedside to discuss dc planning. CM discussed speaking to Tia at [facility] and facility not placing bed hold to confirm patient can return to facility at [facility]. CM sent updated notes to [facility] and notified facility of patient wanting to return at [facility]. Patient confirmed she will need wheelchair transport at [place]. Needs Prior to Discharge: Accepting Facility;Bed Availability;Discharge Transportation SIGNATURE: Anel Schneider RN PATIENT NAME: Rosa Beltran DATE: May 24, 2018 TIME: 10:52 AM PAGER/CONTACT #: [phone] PROGRESS Observed: 05/24/2018 Status: COMPLETED Source: [facility] 10:02 AM [facility] OTHER CAMPUS REPOSITORY HNO ID: [id number] Author: Shola Flores Service: Hospital Medicine Author Type: Physician Type: Progress Notes Filed: 05/24/2018 10:05 AM Note Text: HOSPITAL MEDICINE PROGRESS NOTE Name: Rosa Beltran SERVICE DATE: 05/23/2018 SERVICE TIME: 11:48 AM LOCATION / ROOM: [place] [address]/[place] [address] Hospital Medicine/Primary Attending: Shola Flores MD NIGHT COVERAGE BETWEEN 5.30P-7.30A Page [phone] ASSESSMENT AND PLAN Active Hospital Problems Diagnosis - Ulcer of ankle, right, with fat layer exposed (HCC) Wound examined today with RN - extends at least to the subcutaneous tissue, bone not visualised Wound culture growing various organisms. Previous cultures grew P.aeruginosa. Appreciate wound and podiatry consult recommendations. Will consult ID regarding antimicrobial coverage recommendations. Continue Abx for now. Previous two MRIs one month apart were negative for osteomyelitis, but study was limited due to metal artifact - Ordered 3 phase bone scan as suggested by radiologist, to r/o osteomyelitis as the cause for poor wound healing - ESR only mildly elevated for her age (71 cm/hr; normal for her age is around 50 cm/hr) - Heart failure with preserved ejection fraction (HCC) Recent ECHO showed normal EF but unable to assess diastolic function due to Afib. RV dysfunction/PHT also noted which could be secondary to diastolic dysfunction; however, no prior hx of RHC to diagnose PHT. Increased BLE edema. Continue gentle diuresis. - Chronic atrial fibrillation (HCC) On coumadin, rate controlled, INR therapeutic. Monitor on tele. - Peripheral vascular disease (HCC) Non-invasive vascular arterial study on 10/2017 showed abnormal right toe brachial index - Indicative of distal PAD This could also contribute to poor wound healing - CKD (chronic kidney disease), stage III (HCC) Renal function stable. - Hypotension due to hypovolemia Could be secondary to diuresis Stop diuretics May be we can restart low dose PO diuretic tomorrow - Per RN report Delirium precautions SUBJECTIVE INTERVAL HPI: Pt appeared drowsy this morning, BP <90/60 RN later reported patient's mentation improved Wound was examined with RN Overnight she was hypotensive and lasix dose was held MEDICATIONS: Reviewed Current Facility-Administered Medications: HYDROcodone 5 mg - acetaminophen 325 mg tablet (NORCO) 1 tablet ORAL q 6 H PRN Shola Kailasam 1 tablet at 05/24/18 0904 warfarin 3 mg tab(s) (COUMADIN) 3 mg ORAL DAILY - WARFARIN Justin Dangelo (Pa) 3 mg at 05/23/18 1827 acetaminophen 1,000 mg tab(s) (TYLENOL) 1,000 mg ORAL q 8 H PRN Justin Dangelo (Pa) gabapentin 300 mg cap(s) (NEURONTIN) 300 mg ORAL BID Justin Dangelo (Pa) 300 mg at 05/24/18 0850 docusate sodium 100 mg cap(s) (COLACE) 100 mg ORAL DAILY PRN Justin Dangelo (Pa) therapeutic multivitamin with iron (THERAGRAN-M) 1 tablet ORAL DAILY Justin Dangelo (Pa) 1 tablet at 05/24/18 0850 aspirin, enteric coated 81 mg tab(s) (ASPIRIN, ENTERIC COATED) 81 mg ORAL DAILY Justin Dangelo (Pa) 81 mg at 05/24/[address] 20 mg tab(s) (PROTONIX) 20 mg ORAL DAILY Justin Dangelo (Pa) 20 mg at 05/24/18 0643 levothyroxine 100 mcg tab(s) (SYNTHROID) 100 mcg ORAL DAILY Justin Dangelo (Pa) 100 mcg at 05/24/18 0643 silver sulfADIAZINE 1 % (SILVADENE,THERMAZENE) TOPICAL DAILY Justin Dangelo (Pa) 0.9% NaCl 3-5 mL 3-5 mL INTRAVENOUS q 12 H Justin Dangelo (Pa) 5 mL at 05/24/18 0842 ciprofloxacin 400 mg in D5W 200 mL (CIPRO) 400 mg INTRAVENOUS q 12 H Justin Dangelo (Pa) Last Rate: 200 mL/hr at 05/24/18 0842 400 mg at 05/24/18 0842 vancomycin dosing and monitoring per pharmacy OTHER As Directed Amauri Lund (Pharmacist) vancomycin 1.5 g in D5W 250 mL (VANCOCIN) 1.5 g INTRAVENOUS q 24 HR Justin Dangelo (Pa) Last Rate: 125 mL/hr at 05/23/182213 1.5 g at 05/23/182213 OBJECTIVE PHYSICAL EXAM: BP 81/58 Pulse 62 Temp (Src) 97.7 (Oral) Resp 16 Ht 5' 4 (1.63m) Wt 205 lb 7.5 oz (93.2kg) SpO2 99% BMI 35.25 kg/(m2). GENERAL: Alert, No Distress, disshevled SKIN: Wrinkled and dry EYES: PERRLA, EOMI OROPHARYNX: Lips bright red with whitish deposits in gum line. No thrush. NECK: No jugulovenous distention, No carotid bruits, Carotid pulse normal contour, Supple LUNGS: Bilateral coarse rhonchi and crackles in lung bases CARDIAC: Irregularly irregular rhythm, no murmurs ABDOMEN: Abdomen soft, non-tender, BS normal, No masses or organomegaly EXTREMITIES: No edema, deformity or right ankle. Right ankle had 3 ulcers, extending to subcutaneous tissue - size ranging from 4-5 cm x 3-4 cm x 0.3-0.5 cm in depth. NEURO: Exam deferred PULSES: 2+ radial DATA: Diagnostic tests reviewed for today's visit: Most recent labs Glucose (mg/dL) Date Value 05/24/2018 81 Potassium (mmol/L) Date Value 05/24/2018 5.1 Sodium (mmol/L) Date Value 05/24/2018 132 Chloride (mmol/L) Date Value 05/24/2018 99 CO2 (mmol/L) Date Value 05/24/2018 24 Creatinine (mg/dL) Date Value 05/24/2018 1.13 BUN (mg/dL) Date Value 05/24/2018 32 Anion Gap (mmol/L) Date Value 05/24/2018 9 Calcium (mg/dL) Date Value 05/24/2018 7.8 VTE Prophylaxis: Patient is already anti-coagulated. Disposition: SNF per PT recommendation. Plan of care discussed with: Patient and RN. SIGNATURE: Shola Flores MD DATE: May 23, 2018 TIME: 11:48 AM PROTIME Collected: 05/24/2018 Status: F Source: [facility] 6:03 AM [facility] OTHER CAMPUS REPOSITORY TYPE CODE TESTS RESULT OUT OF RANGE REFERENCE UNITS LAB PSEC 9.7-13.0 sec High PT Sec 20.5 LAB INR 0.9-1.3 High PT INR 2.0 Result Comment: Vitamin K Antagonist (VKA) Therapeutic Range: INR 2 to 3 (Target INR of 2.5) Note: For patients treated with VKA drugs, such as warfarin, the [place] [employer] 2012 Guideline recommends a therapeutic INR range of 2 to 3 (target INR of 2.5). This recommendation includes high-risk patients with antiphospholipid syndrome with previous arterial or venous thromboembolism, current-generation mechanical or bioprosthetic aortic heart valve replacement. Note: Patients with mechanical aortic valve replacement and additional risk factors for thromboembolic events (atrial fibrillation, previous thromboembolism, LV dysfunction, hypercoagulable conditions) or an older generation mechanical AVR (i.e., ball in-Cage) or any mechanical MVR should have a INR therapeutic range of 2.5 to 3.5 (target INR of 3). Shweta GH, et al. Chest 2012, 141:7S-47S Genevieve RA, et al. [facility] 2017, 70: 252-289 Performed By: #### PT, CBC #### [facility] [address] [place] [address] CBC Collected: 05/24/2018 Status: F Source: VICTOR 6:03 AM [facility] OTHER [place] REPOSITORY TYPE CODE TESTS RESULT OUT OF REFERENCE UNITS RANGE LAB WBC 3.70-11.00 k/uL WBC 6.97 LAB RBC 3.90-5.20 m/uL Low RBC 3.43 LAB HGB 11.5-15.5 g/dL Low Hemoglobin 9.4 LAB HCT 36.0-46.0 % Low Hematocrit 31.5 LAB MCV 80.0-100.0 fL MCV 91.8 LAB MCH 26.0-34.0 pG MCH 27.4 LAB MCHC 30.5-36.0 g/dL Low MCHC 29.8 LAB RDWCV 11.5-15.0 % RDW-CV High 17.8 LAB PLTCT 150-400 k/uL Platelet Count 258 LAB MPV 9.0-12.7 fL MPV 10.1 Performed By: #### PT, CBC #### [facility] [address] [facility] [phone] BASIC METABOLIC PANL Collected: 05/24/2018 Status: F Source: VICTOR 6:03 AM CLINIC OTHER CAMPUS REPOSITORY TYPE CODE TESTS RESULT OUT OF REFERENCE UNITS RANGE LAB GLU 74-99 mg/dL Glucose 81 Result Comment: The [place] [employer] (ADA) provides guidance for cutoff values for fasting glucose and random glucose. The ADA defines fasting as no caloric intake for at least 8 hours. Fas ting plasma glucose results between 100 to 125 mg/dL indicate increased risk for diabetes (prediabetes). Fasting plasma glucose results greater than or equal to 126 mg/dL meet the criteria for diagnosis of diabetes. In the absence of unequivocal hyperglycemia, results should be confirmed by repeat testing. In a patient with classic symptoms of hyperglycemia or hyperglycemic crisis, random plasma glucose results greater than or equal to 200 mg/dL meet the criteria for diagnosis of diabetes. Reference: Standards of Medical Care in Diabetes 2016, [place] [employer]. Diabetes Care. 2016.39(Suppl 1). LAB BUN 7-21 mg/dL BUN High 32 LAB CRET 0.58-0.96 mg/dL Creatinine High 1.13 LAB NA 136-144 mmol/L Low Sodium 132 LAB K 3.7-5.1 mmol/L Potassium 5.1 LAB CL 97-105 mmol/L Chloride 99 LAB CO2 22-30 mmol/L CO2 24 LAB AGAP 9-18 mmol/L Anion Gap 9 LAB CA 8.5-10.2 mg/dL Low Calcium, Total 7.8 LAB GFRAA eGFR- Amer. 56 LAB GFRNAA . eGFR-All Other Races 46 Result Comment: eGFR (Estimated GFR) Units of measure: mL/min/1.73 meters squared eGFR is derived from the reexpressed MDRD Study equation using the following parameters: serum creatinine, age, gender and race. The creatinine assay has been calibrated to be traceable to IDOH. An eGFR <60 mL/min/1.73m2 for >3 months is consistent with chronic kidney disease. Refer to KDOQI guidelines for clinical interpretation. In patients with unstable renal function, e.g. those with acute kidney injury, the eGFR may not accurately reflect actual GFR. Performed By: #### BMP #### [facility] [address] [place], [place] [id number] #### HBA1C #### [place] [address] HEMOGLOBIN A1C Collected: 05/24/2018 Status: F Source: VICTOR 6:03 AM [facility] REPOSITORY TYPE CODE TESTS RESULT OUT OF REFERENCE UNITS RANGE LAB HGBA1C 4.3-5.6 % Hemoglobin A1c 5.4 LAB HBA0 mg/dL Est. Average Glucose 108 Result Comment: eAG: (Estimated average glucose) is a calculated value from HgbA1c and is community representative of the average blood glucose level in the last 2-3 month period. Performed By: #### BMP #### [facility] [address] [place], [place] [id number] #### HBA1C #### [place] [address] NURSING PROG Observed: 05/24/2018 Status: COMPLETED Source: VICTOR 4:27 AM [facility] REPOSITORY HNO ID: [id number] Author: Kam ParksRn) ELENA Kaiser Service: Nursing Author Type: Registered Nurse Type: Nursing Progress Note Filed: 05/24/2018 4:29 AM Note Text: Nursing Progress Note Patient Name: Rosa Beltran Patient Location: [id number] Daily Note: 0425: Reported BP of 96/[address] Blanton. Ordered to hold morning dose of Lasix. This note was completed by: Kam Kaiser RN CONSULT Observed: 05/24/2018 Status: COMPLETED Source: VICTOR 12:00 AM CLINIC OTHER CAMPUS REPOSITORY [facility] ID: [id number] Author: Heather Lynn Service: Infectious Disease Author Type: Physician Type: Consults Filed: 05/25/2018 8:51 AM Note Text: [facility]- Consultation ROSA BELTRAN : 1935 AGE: 82 SEX: F ACCTNUM: [id number] HOSP [facility]: [facility] LOCATION: [facility] ATTENDING PHYSICIAN: SHOLA FLORES DATE OF CONSULTATION: 05/24/2018 REFERRING PHYSICIAN: Shola Flores MD REASON FOR CONSULTATION: Right leg infection. HISTORY: The patient is an 82-year-old female, who was admitted to [facility] in 03/2018 with right leg wound infection. Prior cultures have shown polymicrobial sanchez including Pseudomonas, ampicillin-susceptible Enterococcus, Proteus, and MSSA. MRI of the right leg done at that time was negative for osteomyelitis. She was initially on IV antibiotics in the hospital and then discharged on Cipro and amoxicillin to go until 05/05/2018 by mouth. She has been following up at [facility], but on her routine followup yesterday, she was noted to be extremely somnolent due to which she was sent to the ER. She did not have any worsening drainage in her right leg wound. Legs were grossly swollen though. She has not had any high fevers or chills. She is at a rehab facility at this time. Her white count was normal on admission. Her mental status has improved today. She was able the eat without any problems. Cultures were taken from her right leg wound, which are showing mixed sanchez. We have been asked to assist with further management. She has been placed on vancomycin and Cipro. Other review of systems were done with the patient in detail. She denies any cough, shortness of breath, dysuria, abdominal pain, nausea, vomiting, or diarrhea. PAST MEDICAL HISTORY: 1. Right lower extremity polymicrobial wound infection in 03/2018, which was treated with antibiotics. 2. Peripheral arterial disease. 3. Rheumatoid arthritis. 4. Noncompliance. 5. Coronary artery disease. 6. Hypothyroidism. 7. COPD. 8. 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 9. Venous stasis dermatitis of her legs. 10.Atrial fibrillation. 11.Pulmonary hypertension. PAST SURGICAL HISTORY: 1. Gastric bypass. 2. Coronary stents. 3. Colonoscopy. 4. Hernia repair. 5. Right tibial open reduction and internal fixation and then removal of hardware from the right tibia. 6. Bilateral knee replacements. ALLERGIES: No antibiotic allergies. MEDICATIONS: Reviewed. FAMILY HISTORY: No infections. SOCIAL HISTORY: She apparently was at a nursing facility prior to this admission. No active history of smoking or alcohol abuse. REVIEW OF SYSTEMS: Very limited. Similar to history of present illness. Negative unless otherwise stated. PHYSICAL EXAM: Vital Signs: She is currently afebrile, on 2 liters of oxygen. Vital signs are stable. General Appearance: She is alert, able to answer questions appropriately. Head, Eyes, and ENT: Examination is unremarkable. Neck: Supple. Lungs: Clear to auscultation. Heart: Regular rate and rhythm. Abdomen: Soft, nontender, and nondistended. Extremities: On her right leg, there are chronic wounds on the medial, anterior, and posterior aspect of the leg ,which do not show any signs of infection. There is edema of the leg as well noted. Left leg has a small superficial ulcer on the lateral aspect; otherwise, unremarkable. Skin: As above. I did not notice any rash. Neurological: No focal deficits. Musculoskeletal Examination: No swollen joints. Examination: No CVA tenderness. LABORATORY: White count 6.9, hemoglobin 9.4, platelets 258,000. BMP showed a sodium of 132, creatinine 1.13. ESR 79. CRP was 5. Cultures from the right leg are showing polymicrobial, but no predominant organism. Blood cultures are negative. X-rays of her right tibia and fibula showed soft tissue edema. No evidence of osteomyelitis. X-ray of her ankle was unremarkable. Chest x-ray was unremarkable. IMPRESSION: 1. Right lower extremity chronic wound without any signs of active infection at this time. Her MRI in the past had been negative for osteomyelitis. There is no worsening wound drainage. 2. Encephalopathy, which has resolved. Etiology is uncertain. I doubt it is from an infection. 3. Rheumatoid arthritis, but not on any chronic immunosuppressives. 4. Peripheral arterial disease. 5. Coronary artery disease. 6. Hypothyroidism. 7. Chronic obstructive pulmonary disease. 8. Chronic atrial fibrillation. 9. Chronic kidney disease stage 3. RECOMMENDATIONS: 1. Discontinue vancomycin and Cipro. 2. Observe her off antibiotics. 3. Discussed with Podiatry. Thank you for the consult. Heather Lynn M.D. Infectious Disease AD:[id number] /[id number] THERAPY NT Observed: 05/23/2018 Status: COMPLETED Source: VICTOR 4:06 PM CLINIC OTHER CAMPUS REPOSITORY HNO ID: [id number] Author: Anel (Ot/L) Ector Service: Occupational Therapy Author Type: Occupational Therapist Type: Therapy (PT/OT/Speech/Resp) Filed: 05/23/2018 4:16 PM Note Text: Occupational Therapy Evaluation SERVICE DATE: 05/23/2018 SERVICE TIME: 1447 to 1531 (Co-treatment with PT due to RN report of amount of assistance required earlier this date) ROOM: [place] [address] Recommended Discharge Disposition: Subacute/SNF Recommended Discharge Disposition Comments: Pt is functioning below baseline, is a high fall risk and requires continued skilled OT services to address functional deficits and increase safety, ease and independence during ADLs, IADLs and functional mobility, prior to returning home alone. Justification For Post Acute Needs: Willing to participate;Anticipate that patient will require daily (5x/wk) skilled therapy in a post-acute facility setting at the time of acute hospital discharge;May not tolerate higher intensity programing;Good premorbid functional status Anticipated Discharge Needs: (n/a SNF recommended) OT Recommendations to Nursing: ADL?s in chair;Bedside Commode for Toileting;OOB for meals;Transfer to Chair;With assist of 2 people (monitor response/vitals) Equipment: Commode-Bedside;Wheeled Walker (gait belt; bed/chair alarms) OT 6 Clicks Score: 15 Precautions/Activity Restrictions: Bed/Chair Alarm;Fall Risk;Lines/Tubes/Drains ASSESSMENT: Pt presents with impaired functional mobility, ADL performance, balance and functional activity tolerance, impacting her ability to function without assist from caregivers. Requires monitoring of vitals and seated rest break due to c/o nausea and dizziness with minimal activity and instruction/education regarding safe activity dosing. CGA-Maximal Assistance (see below) required for bed mobility, sit <> stand, functional mobility w/FWW, toileting. Pt AANDOx3, however, distractible and lethargic at times, requiring repeated cues and extended time for processing. Pt would benefit from cognitive assessment during next session. Pt's needs exceed resources available at this time, as pt typically lives home alone (prior to recent admission 03/2018). Requires skilled therapy to address mobility and self-care limitations as well as progress activities within safe limits, as pt is functioning below baseline and not safe to return home at this time. Plan to formally assess cognitive and BUE ROM/MMT next session. Patient Disposition at Start of Session: Supine in Bed;Call Banda in Reach (PT present) Patient Disposition at End of Session: Supine in Bed;Call Banda in Reach (heels floated, RN at bedside to provide care) Tolerance Limited By Physiologic Response;Fatigue Occupational Therapy Problem List: Cognitive Deficit;Education Deficit;Edema;Pain;Safety Deficits;Impaired Self Care;Decreased Activity Tolerance;Functional Mobility Impairment;Balance Impaired;Decreased Skin Integrity Patient /Caregiver Goals: Go To Rehab Goals for Plan of Care: Grooming with: Stand By Assistance (at sink) Lower Body Dressing with: Stand By Assistance Toilet Hygiene with: Stand By Assistance Chair Transfer with: Stand By Assistance Toilet Transfer with: Stand By Assistance Tolerate (minutes of functional activity): 15 (during standing portion of ADLs/functional tasks/mobility) Functional Activity with: Stand By Assistance (without physiologic response) Progress Toward Goals: Progressing slower than expected Due To: physiologic response, fatigue Rehab Potential: Fair PLAN: Treatment Frequency (times per week): 2 Current admission Treatment Interventions: Education;Self Care / Home Management;Energy Conservation Training;Strengthening;Balance Training;Functional Mobility Training;Pain Management;Cognitive Training Plan of Care developed with: Patient TREATMENT INTERVENTIONS: Therapy Diagnosis: Decreased activities of daily living (ADL) Interventions Provided: Evaluation;Self Senior Care Management (43207) $ Evaluation-Moderate (78508) Billed Units: 1 unit Self Senior Care Management (56910) Treatment Minutes: 15 1 unit Skilled Intervention(s): Pt educated in role of OT. Pt instructed and provided with verbal and tactile cues in safe sit <> stand toilet transfer. Provided instruction and verbal, visual cues and facilitation for safe technique for standing toilet hygiene/clothing management while maintaining standing balance at walker level. Pt instructed and verbally cued on hand placement on sink counter for balance support and proper walker/feet placement in preparation for standing ADL tasks (however, pt declined participation in offered tasks). Vitals monitored throughout session to ensure safe progression of functional activities. Education in OT POC. RN and CM notified of pt status and recommendations. Total Timed Code Treatment Minutes: 15 Total Treatment Time (minutes): 44 FUNCTIONAL G CODE: OT 6 Clicks Score: 15 (05/23/181446) Self Care Current Status (G8987): CK (05/23/181446) Self Care Goal Status (G8988): CK (05/23/181446) Based on clinical assessment and the score on the 6 Clicks Functional Assessment Tool, the G code and corresponding severity modifiers are documented above. SUBJECTIVE: Current Hospital Course: Chart reviewed; Patient is an 82 year old female Reason for Occupational Therapy Consult: Patient presents to the ED (from wound center) for leg pain and for wound check. Referred to OT due to recent changes in ability to perform self-care. Relevant Past Medical History: A fib, CAD, L TKA, R TKA, RA, depression, HTN, COPD, ORIF tibia Patient Report: I would rather get up to the potty chair than use the bed hernandez. Home Environment Patient Lives With: Self/Alone (however, admitted from SNF per CM) Assistance Available: multimedia project manager (dtr in law lives upstairs, works different shifts) Entry To Home: (stair lift) Number Of Stairs To Bed/Bath: 0 Tub/Shower Type: walk in Laundry: pt completes Equipment Owned: Grab Bars-Shower;Grab Bars-Toilet;Hospital Bed;Wheeled Walker;Wheelchair;Home Oxygen;Lift Chair Prior Functional Level: Required Assistance Assistance Required With: Shopping;Transportation Prior Functional Level Comments: Pt reports ind with ADLs, dtr in law assists with meals as needed, uses walker to ambulate, furniture walks in apartment, has been sleeping in lift chair. Pt reports being admitted from rehab facility but question accuracy. OBJECTIVE: Orientation Deficits: (AANDOx3) Responsiveness: Lethargic;Alert;Awake Follows Commands: 2-step Commands;Cueing Needed Cueing to Follow Commands: Minimum Attention Deficits: Distractible Psychosocial Deficit: hx of depression CURRENT FUNCTIONAL STATUS: Current Activities of Daily Living Assist Level Feeding Independent (per clinical judgment) Grooming Contact Guard Assistance (per clinical judgment at sink) Bathing Upper Body Minimal Assistance (per clinical judgment for thoroughness) Bathing Lower Body Maximal Assistance (per clinical judgment) Dressing Upper Body Minimal Assistance (per clinical judgment seated) Dressing Lower Body Total Assistance (per clinical judgment) Toileting Maximal Assistance (standing clothing mgmt, CGA standing hygiene) Functional Mobility Assist Level Rolling Supine to Sit Contact Guard Assistance (HOB elevated; to R side) Sit to Supine Maximal Assistance (for BLEs; HOB near flat) Scooting Contact Guard Assistance (to EOB) Sit to Stand Moderate Assistance (to Minimal Assistance; from bed, bedside chair to walker ) Pt with noted forward flexion. Feet blocked to prevent from sliding. Ht of bed min elevated. Stand to Sit Contact Guard Assistance (to MInimal Assistance, to bed, bedside chair from walker ) Bed to Chair Toilet/Commode Contact Guard Assistance (bedside commode) Functional Mobility Contact Guard Assistance (bed to chair, sink, bedsid commode, bed) Wheeled Walker -Gait belt used during functional mobility and transfers for optimal safety Balance: Static Standing;Dynamic Standing Static Standing Balance: Contact Guard Assistance Dynamic Standing Balance: Contact Guard Assistance Activity Tolerance: Standing Activity Standing Activity: static standing at sink for education, toileting Standing Activity Tolerance (in minutes): (c/o dizziness AND nausea -vitals stable) Vital Signs Pre Assessment: O2 Equipment Pre O2 Equipment: Nasal Cannula Pre Oxygen Requirement: 4L/min Intra Assessment 1: BP Intra 1, SpO2 Intra 1, Heart Rate Intra 1 Intra Heart Rate 1: 84 Intra BP Position 1: Sitting (in chair, w/ c/o nausea, dizziness, requiring chair to be brought to pt for seated rest break) Intra SpO2 1: 97 Please see discipline specific clinical documentation flowsheet for complete details for this therapy evaluation/treatment. SIGNATURE: Anel Barney OT/Giselle PATIENT NAME: Rosa Beltran DATE: May 23, 2018 TIME: 4:06 PM THERAPY NT Observed: 05/23/2018 Status: COMPLETED Source: [facility] 4:00 PM CLINIC OTHER CAMPUS REPOSITORY HNO ID: [id number] Author: Alicja ParksPtSantino Guzman Service: Physical Therapy Author Type: Physical Therapist Type: Therapy (PT/OT/Speech/Resp) Filed: 05/23/2018 4:10 PM Note Text: Physical Therapy Evaluation SERVICE DATE: 05/23/2018 SERVICE TIME: 1430 to 1530 Co-eval with OT due to anticipated level of assist as nursing reporting assist x 2 to mobilize. ROOM: [place] [address] Recommended Discharge Disposition: Subacute/SNF Recommended Discharge Disposition Comments: Pt functioning below baseline requiring significant assist to safely complete activity at this time indicating a need for continued therapy post acute stay. Justification For Post Acute Needs: Good sitting tolerance;Willing to participate;May not tolerate higher intensity programing;Anticipate that patient will require daily (5x/wk) skilled therapy in a post-acute facility setting at the time of acute hospital discharge Recommended Discharge Equipment: No equipment needs anticipated PT Recommendations to Nursing: Ambulate with device;Transfer to/from chair;OOB for Meals;Sit at edge of bed;With assist of 1 person (1 -2 assist) Device: Wheeled Walker PT 6 Clicks Score: 13 Precautions/Activity Restrictions: Bed/Chair Alarm;Fall Risk;Lines/Tubes/Drains ASSESSMENT : Patient presents with decreased strength, balance and endurance and requiring significant assist for functional mobility at this time. Pt requires maximal time to complete bed mobility with difficulty performing, extended time to complete transfers, non functional gait speed. Pt requires moderate cues for sequencing and safe performance of stand pivot transfers with assist with walker navigation to continue movement, becomes increasingly agitated as session progresses. Pt requires continued skilled PT post acute stay to address deficits and safely progress activity for increased safety and independence at home. Patient Disposition at Start of Session: Supine in Bed Patient Disposition at End of Session: Supine in Bed Tolerated Full Session Physical Therapy Problem List: Cognitive Deficit;Pain;Safety Deficits;Impaired Self Care;Decreased Activity Tolerance;Decreased Range Of Motion;Decreased Strength;Functional Mobility Impairment;Balance Impaired Patient /Caregiver Goals: Go To Rehab Goals for Plan of Care: Able to perform HEP with: Verbal Cues Only Rolling with: Contact Guard Assistance Transfer supine to/from sit with: Stand By Assistance Transfer sit to/from stand with: Contact Guard Assistance (LRAD) Ambulate with: Contact Guard Assistance Distance: 50 Device: (LRAD) Goal: No more than SBA to maintain static/dynamic standing balance to reduce risk of falls Rehab Potential: Fair PLAN: Treatment Frequency (times per week): 4 Current admission Treatment Interventions: Education;Joint Mobility;Strengthening;Functional Mobility Training;Balance Training;Neuromuscular Re-education;Modalities Modalities: Ice Plan of Care developed with: Patient TREATMENT INTERVENTIONS: Therapy Diagnosis: Reduced mobility-other Interventions Provided: Evaluation;Therapeutic Activity (98852) $ Evaluation-Moderate (53801) Billed Units: 1 unit Therapeutic Activity (36541) Treatment Minutes: 30 2 units Skilled Intervention(s): Instructed patient in log roll technique with assist provided to pelvis and scapula Instructed patient in supine to sit pushing with upper extremities to sit up, with assist for LE management Instructed patient in sit to supine using safe, effective technique with assist for trunk and LE management, primarily trunk management MaxA x 2 with use of draw pad to scoot to HOB in supine Assist with trunk and LE management for positioning in bed Assist with positioning LEs to reduce pressure on heels Instruction in sit to stand technique with proper hand placement and body positioning at edge of bed/chair Instruction in stand to sit technique with lower extremities touching chair/bed and reaching back for surface with reinforcement for safe approach to surface, proper hand placement and controlled descent to sit. Maximal time to complete stand to sit due to slow processing of cues. Modified stand pivot transfers with use of FWW for steps to turn with walker navigated throughout and verbal cues to remain within parameters of walker Education: Pt educated in role of PT during acute stay and PT POC, importance of OOB activity with nursing to reduce risk of functional decline, rationale for discharge recommendation of SNF, use of call light 100% of the time for assist, parameters for safe home going, role of nursing in mobility when PT not present Total Timed Code Treatment Minutes: 30 Total Treatment Time (minutes): 60 SUBJECTIVE: Current Hospital Course: Chart reviewed; Reason for Physical Therapy Consult : Unsuccessful mobility by Nursing or Primary Service Relevant Past Medical History: Active hospital problems: venous stasis ulcer, hear failure, chronic Afib, CKD, hyperkalemia, presents with worsening LE wounds. PMH: hypothyroidism, CAD, afib, COPD, dyslipidemia, HTN, RA, sleep apnea. PSH: gastric bypass, R tibia ORIF, R/L TKA. Patient Report: Pt in bed upon entry and is agreeable to PT, ok per nursing to treat. 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 Pt reports being admitted from rehab facility but question accuracy. OBJECTIVE: Range Of Motion: Within Functional Limits Except Right Lower Extremity ROM Comments: AROM hip and knee flexion limited by approx 50% secondary to weakness/edema/habitus. ankle DF lacking approx 10 degrees of PF and DF Left Lower Extremity ROM Comments: AROM hip and knee flexion limited by approx 50% secondary to weakness/edema/habitus. ankle DF lacking approx 5 degrees of PF and DF Strength: Within Functional Limits Except Strength Limitation Comments: BLEs grossly 3-/5 to 3+/5 CURRENT FUNCTIONAL STATUS: Current Functional Mobility Assist Level Additional Information Rolling Moderate Assistance Supine to Sit Contact Guard Assistance (HOB elevated, use of bed rails, max time to complete) Sit to Supine Moderate Assistance (HOB flat, assist with trunk and LE management) Scooting Contact Guard Assistance Sit to Stand Moderate Assistance (FWW) to CGA fluctuating between 1-2 person assist X 4 trials, requiring assist x 2 from bed and chair surface Stand to Sit Minimal Assistance Exaggerated forward lean requiring PT to brace at shoulder Bed to Chair Contact Guard Assistance Bed To Chair Transfer Type: Stand Pivot Bed To Chair Transfer Equipment: Wheeled Walker;Gait Belt X 4 trial Toilet/Commode Gait Contact Guard Assistance Gait Device: Wheeled Walker Gait Distance (feet): 5 Stairs Curb Step Car Transfer General Gait Deviations: Lori decreased;Step length decreased;Flexed trunk posture;Wide base of support;Shuffling Gait;Difficulty changing direction/turning;Non-functional gait speed Gait belt donned for functional activity Balance: Static Sitting;Dynamic Sitting;Static Standing;Dynamic Standing Static Sitting Balance: Stand By Assistance Dynamic Sitting Balance: Contact Guard Assistance Static Standing Balance: Contact Guard Assistance Dynamic Standing Balance: Contact Guard Assistance Please see discipline specific clinical documentation flowsheet for complete details for this therapy evaluation/treatment. SIGNATURE: Alicja Guzman, PT PATIENT NAME: Rosa Beltran DATE: May 23, 2018 TIME: 4:00 PM ALLIED HEALTH Observed: 05/23/2018 Status: COMPLETED Source: [facility] 2:50 PM [facility] OTHER CAMPUS REPOSITORY HNO ID: [id number] Author: Svetlana ParksRn) ELENA Gonzalez Service: Ostomy Author Type: Registered Nurse Type: Allied Health Filed: 05/23/2018 2:54 PM Note Text: Consult received for wound care. Podiatry service also consulted, has evaluated and written wound care orders. I will defer my consult. I will remain available if needs arise. Svetlana Gonzalez RN CWOCN PT ED Observed: 05/23/2018 Status: COMPLETED Source: [facility] 2:36 PM [facility] REPOSITORY HNO ID: [id number] Author: Danica Alejandro (Patient Observation Assistant) Service: Pharmacy Author Type: Pharmacist Type: Patient Education Filed: 05/23/2018 2:39 PM Note Text: PHARMACY WARFARIN EDUCATION Patient Name: Rosa Beltran Account #: Data Unavailable Admission Date: 05/22/2018 5:25 PM Date of Contact: May 23, 2018 Time of Contact: 2:37 PM Patient new to warfarin? No: Previous (home) dosage: 3mg daily Outpatient follow-up plan: Follow-up in [facility] or outside Anticoagulation Clinic Details:[facility] Indication for warfarin: atrial fibrillation Target INR range: 2.0 - 3.0 (Target 2.5) Patient received full warfarin education. Initial patient education included: * Reason for taking warfarin * How warfarin works * What the INR test is, frequency of testing, and the importance of monitoring warfarin with scheduled PT/INR blood draws or finger sticks * Information about plans to monitor warfarin post-discharge was reviewed * Identifying tablet(s) and to notify the doctor/anticoagulation clinic if there is a change in tablet color, shape, or markings * Drug interactions (Rx, OTC, herbal) and importance of notifying the doctor/anticoagulation clinic with any changes. * Do not take or discontinue any medication or over the counter medication except on the advice of the physician or pharmacist because certain medications can affect the PT/INR. * Potential duration of therapy * Signs/symptoms of bleeding and what to do if they occur because warfarin increases the risk of bleeding * Signs/symptoms of thrombosis and what to do if they occur * Dietary considerations discussing that a ?consistent amount? of foods with vitamin K rather than avoidances should be advised and to avoid major changes in dietary habits, or notify health professional before changing habits because diet can affect the PT/INR * Carrying identification * Importance of notifying healthcare provider and [facility] when hospitalizations occur and when another healthcare provider has asked them to stop/hold warfarin before any procedure * Importance of notifying all healthcare providers they are taking warfarin * The importance of taking warfarin as instructed and the potential ramifications of non- compliance were explained to the patient. The patient was provided ?Understanding the Anticoagulant Medication Warfarin? education booklet which includes the following : compliance Issues, dietary advice, follow-up with physician, follow- up monitoring, potential adverse drug reactions and interactions. READINESS TO LEARN COGNITIVE ABILITY: Alert and oriented MOTIVATION TO LEARN: Eager FAMILY SUPPORT: Unable to assess - Family not present INSTRUCTION PROVIDED TO: Patient PATIENT LEARNS BEST BY: Unable to Assess FACTORS AFFECTING LEARNING: None PHYSICAL LIMITATIONS AFFECTING LEARNING: None LEARNING RESPONSE DIAGNOSIS: SEE INDICATION(S) ABOVE PATIENT/FAMILY RESPONSE: Verbalizes understanding of: The signs and symptoms of a worsening condition that warrant a call to the physician. The correct actions to take to manage symptoms associated with his/her disease/illness. The physical restrictions and recommendations after discharge from the hospital. Accurate knowledge of prescribed medication prior to discharge. The side effects associated with the medication that warrant a call to the physician. Post discharge follow up instruction METHOD OF INSTRUCTION: Individual instruction SUPPLEMENTAL MATERIAL PROVIDED: Warfarin booklet Understanding your Warfarin Therapy and Warfarin booklet: EVIDENCE OF LEARNING Outcomes met: Describes/able to restate information Outcomes not met: N/A Outpatient Follow-up: [facility] DANICA ALEJANDRO, DOCK CLERK PROGRESS Observed: 05/23/2018 Status: COMPLETED Source: [facility] 11:48 AM CLINIC OTHER CAMPUS REPOSITORY O ID: [id number] Author: Shola Flores Service: Hospital Medicine Author Type: Physician Type: Progress Notes Filed: 05/23/2018 11:52 AM Note Text: HOSPITAL MEDICINE PROGRESS NOTE Name: Rosa Beltran SERVICE DATE: 05/23/2018 SERVICE TIME: 11:48 AM LOCATION / ROOM: [place] [address]/[place] [address] Hospital Medicine/Primary Attending: Shola Flores MD NIGHT COVERAGE BETWEEN 5.30P-7.30A Page [phone] ASSESSMENT AND PLAN Active Hospital Problems Diagnosis - Venous stasis ulcer of right lower leg with edema of right lower leg (HCC) No leukocytosis, afebrile. Drainage appears serosanguinous per admission team. Unable to examine the wound today, as it was inspected and dressed by wound team. Wound culture growing various organisms. Not sure if patient needs antimicrobials- pt was recently on multiple antibiotics prior to admission. Appreciate wound and podiatry consult recommendations. Will consult ID regarding antimicrobial coverage recommendations. Check HbA1c tomorrow. - Heart failure with preserved ejection fraction (HCC) Recent ECHO showed normal EF but unable to assess diastolic function due to Afib. RV dysfunction/PHT also noted which could be secondary to diastolic dysfunction; however, no prior hx of RHC to diagnose PHT. Increased BLE edema. Continue gentle diuresis. - Chronic atrial fibrillation (HCC) On coumadin, rate controlled, INR therapeutic. Monitor on tele. - CKD (chronic kidney disease), stage III (HCC) Renal function stable. - Hyperkalemia Could secondary to renal dysfunction Diuresis Monitor electrolytes SUBJECTIVE INTERVAL HPI: Reported 10/10 burning pain in her right leg. No bowel or bladder dysfunction. She also reported feeling short of breath. No fever, chills, or sweats. Wound dressing change was done by wound team. MEDICATIONS: Reviewed Current Facility-Administered Medications: sodium hypochlorite topical irrigation 0.25% (DAKINS HALF-STRENGTH) IRRIGATION ONCE Kapil (Marvin) John HYDROcodone 5 mg - acetaminophen 325 mg tablet (NORCO) 1 tablet ORAL q 6 H PRN Shola Flores warfarin 3 mg tab(s) (COUMADIN) 3 mg ORAL DAILY - WARFARIN Justin Dangelo (Pa) 3 mg at 05/22/18 2322 acetaminophen 1,000 mg tab(s) (TYLENOL) 1,000 mg ORAL q 8 H PRN Justin Dangelo (Pa) gabapentin 300 mg cap(s) (NEURONTIN) 300 mg ORAL BID Justin Dangelo (Pa) 300 mg at 05/23/18 0946 docusate sodium 100 mg cap(s) (COLACE) 100 mg ORAL DAILY PRN Justin Dangelo (Pa) therapeutic multivitamin with iron (THERAGRAN-M) 1 tablet ORAL DAILY Justin Dangelo (Pa) 1 tablet at 05/23/18 0946 sodium hypochlorite 0.125 % (DAKIN'S QUARTER STRENGTH) TOPICAL DAILY Justin Dangelo (Pa) aspirin, enteric coated 81 mg tab(s) (ASPIRIN, ENTERIC COATED) 81 mg ORAL DAILY Jusitn Dangelo (Pa) 81 mg at 05/23/[address] 20 mg tab(s) (PROTONIX) 20 mg ORAL DAILY Justin Avendano) Antolin 20 mg at 05/23/18 0528 levothyroxine 100 mcg tab(s) (SYNTHROID) 100 mcg ORAL DAILY Justin (Saeed) Antolin 100 mcg at 05/23/18 0528 silver sulfADIAZINE 1 % (SILVADENE,THERMAZENE) TOPICAL DAILY Justin Dangelo (Pa) 0.9% NaCl 3-5 mL 3-5 mL INTRAVENOUS q 12 H Justin (Skylar Dangelo 5 mL at 05/23/18 0940 ciprofloxacin 400 mg in D5W 200 mL (CIPRO) 400 mg INTRAVENOUS q 12 H Justin Dangelo (Pa) Last Rate: 200 mL/hr at 05/23/18 0941 400 mg at 05/23/18 0941 furosemide 40 mg injection (LASIX) 40 mg INTRAVENOUS q 12 H 6a/6p Justin Avendano) Antolin 40 mg at 05/23/18 0528 vancomycin dosing and monitoring per pharmacy OTHER As Directed Amauri Lund (Pharmacist) vancomycin 1.5 g in D5W 250 mL (VANCOCIN) 1.5 g INTRAVENOUS q 24 HR Justin Dangelo (Pa) HYDROcodone 5 mg - acetaminophen 325 mg tablet (NORCO) 1 tablet ORAL q 4 H PRN Justin Dangelo (Pa) 1 tablet at 05/23/18 0638 OBJECTIVE PHYSICAL EXAM: BP 100/51 Pulse 74 Temp (Src) 98.1 (Axillary) Resp 18 Ht 5' 4 (1.63m) Wt 205 lb 7.5 oz (93.2kg) SpO2 97% BMI 35.25 kg/(m2). GENERAL: Alert, No Distress, disshevled SKIN: Wrinkled and dry EYES: PERRLA, EOMI OROPHARYNX: Lips bright red with whitish deposits in gum line. No thrush. NECK: No jugulovenous distention, No carotid bruits, Carotid pulse normal contour, Supple LUNGS: Bilateral coarse rhonchi and crackles in lung bases CARDIAC: Irregularly irregular rhythm, no murmurs ABDOMEN: Abdomen soft, non-tender, BS normal, No masses or organomegaly EXTREMITIES: No edema, deformity or right ankle. Wound was not examined as dressing was recently changed by wound team NEURO: Exam deferred PULSES: 2+ radial DATA: Diagnostic tests reviewed for today's visit: Most recent labs CBC: WBC 9.49 05/23/2018 Hemoglobin 11.3 05/23/2018 Hematocrit 37.3 05/23/2018 Platelet Count 293 05/23/2018 CMP: Sodium 134 05/23/2018 Potassium 5.6 05/23/2018 BUN 34 05/23/2018 Creatinine 1.25 05/23/2018 Glucose 92 05/23/2018 Chloride 99 05/23/2018 CO2 25 05/23/2018 VTE Prophylaxis: Patient is already anti-coagulated. Disposition: Home with [facility] or Extended Care Facility Plan of care discussed with: Patient, Daughter and RN. SIGNATURE: Shola Flores MD DATE: May 23, 2018 TIME: 11:48 AM CASE MGT INIT Observed: 05/23/2018 Status: COMPLETED Source: [facility] 11:43 AM CLINIC OTHER CAMPUS REPOSITORY HNO ID: [id number] Author: Meredith (Rn) ELENA Burns Service: (none) Author Type: Registered Nurse Type: Care Mgt Initial Assessment Filed: 05/23/2018 11:48 AM Note Text: CARE MANAGEMENT: ASSESSMENT AND DISCHARGE PLAN SERVICE DATE: 05/23/2018 SERVICE TIME: 11:43 AM PRIMARY CARE PHYSICIAN: Mani Newman MD (confirmed) ADMISSION STATUS: Inpatient Needs Prior to Discharge: To Be Determined;Facility or Agency Choices MEDICAL: Patient/Material Processor Stated Goals: To have reduction in pain To have reduction in symptoms To improve my functional status To return home to life as it was Health Insurance: MEDICARE A AND B [place] Health Issues Impacting Discharge Plan: CHF, afib, chronic wounds, CAD Last Admission Date: Previous admit date: 04/20/2018 Is this Within the Past 30 days? No Advance Directive: Current Advance Directive: Health Care Power of Integrity Director In Chart: (family to bring in copy) Health Literacy: 1. How often do you need to have someone help you when you read instructions, pamphlets, or other written material from your doctor or pharmacy? Never - 1 2. How confident are you filling out medical forms by yourself? Extremely - 1 If Patient scores > 3 on either question, the following interventions were put into place: Patient did not score > 3 FUNCTIONAL AND COGNITIVE/BEHAVIORAL PRIOR TO ADMISSION: Baseline Mental Status: Alert AND Oriented, Person, Place , Time and Situation Functional Status: Independent Does Patient Currently Receive Any Community Services or Home Care? Half-Way from SNF Equipment Prior to Admission: Oxygen 3 liters per minute Walker Wound Care supplies Has the Patient Been in a Half-Way Facility in the Past 30 days? Yes. Where and Dates: current at [facility] SOCIAL: Living Arrangement: Nursing Facility [facility] (Level of Care: skilled Bed Hold Days: .) Lives With: N/A Patient From Facility Financial Resources: Retired Primary Contact: Extended Emergency Contact Information Primary Emergency Contact: Sheron Beltran Address: [place] [address] [facility] Mobile Relation: Relative Supportive: Yes Other Important Patient Contacts: None Caregiver Assessment: Caregiver is ready, willing and able to meet the patient's needs as recommended by the inter-professional team? TBD Patient's transition needs and plan for meeting these needs: return to SNF Does the patient have an acute stroke diagnosis, or has the patient had a stroke during this admission? No Medication Adherence: I am convinced of the importance of my prescription medication: Agree mostly - 0 I worry that my prescription medication will do more harm than good to me Disagree mostly - 0 I feel financially burdened by my [id number] expenses for my prescription medication: Disagree mostly -0 Patient is categorized as low risk < 2 Are you interested in bedside delivery of your medications? No Food Concerns: In the Last Month, Have You had Trouble Getting Food? No trouble getting food During the Last Month, Have You Worried Whether Your Food Would Run Out Before You Had Enough Money to Buy More? No Is the Patient Psychosocially Complex? No ASSESSMENT AND PLAN: Medical Needs: 2 or more chronic diseases Psychosocial Needs: None FREEDOM OF CHOICE EXPLAINED: Yes wants to return to [facility], if [facility] wants [facility]> POTENTIAL TRANSITION PLANS Home Care Half-Way Facility/Intermediate Care Facility CM in to speak with patient at bedside, introduced self and role. Pt is a 82y/o with medical history of hypothyroidism, acute respiratory failure with hypoxia, A. fib, CAD, COPD, depression, hypertension, dyslipidemia, and rheumatoid arthritis presents from wound center worsening wound infection . Pt is from [facility]) and per pt, plan is to return, if [facility] needed wants [facility]. CM instructed pt that a CM will remain available for any d/c needs. Pt had no further questions/concerns voiced at this time. SIGNATURE: Meredith Burns RN PATIENT NAME: Rosa Beltran DATE: May 23, 2018 TIME: 11:43 AM PAGER/CONTACT #: [phone] CONSULT Observed: 05/23/2018 Status: COMPLETED Source: [facility] 10:33 AM CLINIC OTHER CAMPUS REPOSITORY HNO ID: [id number] Author: Kapil Lopez Service: Podiatry Author Type: Resident Type: Consults Filed: 05/23/2018 11:26 AM Note Text: CONSULT: POD SX SERVICE SERVICE DATE: 05/23/2018 SERVICE TIME: 10:34 AM REASON FOR CONSULT: PRIMARY CARE PHYSICIAN: Mani Newman MD ASSESSMENT AND PLAN Active Problems: Venous stasis ulcer of right lower leg with edema of right lower leg (HCC) POA: Yes Assessment AND Plan: Chronic atrial fibrillation (HCC) POA: Yes Assessment AND Plan: Heart failure with preserved ejection fraction (HCC) POA: Yes Assessment AND Plan: Anticoagulation goal of INR 2 to 3 POA: Yes Assessment AND Plan: CKD (chronic kidney disease), stage III (HCC) POA: Unknown Assessment AND Plan: Hyperkalemia POA: Unknown Assessment AND Plan: RLE venous statsis ulcerations Wound care ordered, wash with dakins, xeroform, 4x4s, abds, kerlix, ANKIT with mild compression, BID Offload wounds with offloading boots Follow wound cultures, 04/21/18 was growing PsAg MRI 04/21/18 negative for OM Reviewed tib/fib and ankle XR Continue abx No current surgical plans Bedside sharp excisional nonselective debridement of right medial ankle ulceration with a curette into the level of subq with measurements listed below. Patient states that she couldn't tolerate debridement of other wound Resolved Problems: * No resolved hospital problems. * Problem List Items Addressed This Visit Hyperkalemia Other Visit Diagnoses Bilateral cellulitis of lower leg - Primary Wound of right lower extremity, initial encounter Failure of outpatient treatment SUBJECTIVE Ms. Beltran is a 82 year old female who presents for worsening RLE ulcers. Patient was sent to ED from [facility]. Patient reports feeling N/F/V/C for the last month or so. Patient has history of CHF, CAD, AF, Pulm HTN, HLD, BEBA, RA, Hypothroid, RLE venous stasis ulcer. Patient has had medial ankle wound for 3 years after an ankle fracture. Patient was admitted about a month ago for same problem and at that time had debridement and was cultured growing PsAg. PAST MEDICAL HISTORY: PAST MEDICAL HISTORY Diagnosis Date - Acquired hypothyroidism - Acute respiratory failure with hypoxia (HCC) 09/30/2017 - Atrial fibrillation ([facility]) - CAD (coronary artery disease) Dr. Brenda Awan Hts, Promus element KIMMY LAD 11/20/2012, Stress test 04/2014 inferoapical reversible ischemia,small LVEF 48- 50%, LHC 12/2014 L main-normal, LAD widely patent, Cx diffuse mild luminal irregularities with 80%focal stenosis distal, RCA dominant with minimal luminal irregularities. 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 - Pure hypercholesterolemia - Rheumatoid arthritis (HCC) 2007 - Sleep apnea - Stented coronary artery 12/29/2016 PAST SURGICAL HISTORY: PAST SURGICAL HISTORY Procedure Laterality Date - CC CORONARY STENT 11/20/2012 KIM[facility] LAD - CC CORONARY STENT 12/20/2014 KIM[facility], Cfx - SECTION HX - COLONOSCOPY 06/10/2017 [facility], Nonspecific cecal ulcer - GASTRIC BYPASS HX 1986 - HERNIA REPAIR HX 1987; 1989 - PAST SURGICAL HISTORY OF Right 09/2015 right tibia fracture ORIF - PAST SURGICAL HISTORY OF Right 01/20/2016 Removal of hardware, right tibia - TOTAL KNEE REPLACEMENT Right 2003 [facility] Gen. - TOTAL KNEE REPLACEMENT Left 2004 [facility] Gen. FAMILY HISTORY: No family history on file. SOCIAL HISTORY: Social History Substance Use Topics - Smoking status: Passive Smoke Exposure - Never Smoker - Smokeless tobacco: Never Used Comment: smoked for 40 years - Alcohol use No MEDICATIONS: Prior to Admission Medications: Prescriptions Prior to Admission: ergocalciferol, vitamin D2, (VITAMIN D2 ORAL) Take by mouth. Disp: Rfl: Taking lisinopril (ZESTRIL) 2.5 mg tablet Take 1 tablet by mouth every evening. Disp: 30 tablet Rfl: 5 Taking omeprazole (PRILOSEC) 20 mg capsule Take 1 capsule by mouth once daily. Disp: 30 capsule Rfl: 5 Taking docusate sodium (COLACE) 100 mg capsule Take 1 capsule by mouth once daily as needed for Constipation. Disp: 30 capsule Rfl: 5 Taking sodium hypochlorite (DAKIN'S SOLUTION) 0.125 % soln Dakin's moistened gauze packing every other day to wound for bacterial control. Disp: 473 mL Rfl: 2 Taking warfarin (COUMADIN) 3 mg tablet Take 1 tablet by mouth daily as directed. Patient is taking 2mg Tuesday and and 3mg other days. (Patient taking differently: Take 3 mg by mouth once daily. ) Disp: Rfl: Taking gabapentin (NEURONTIN) 300 mg capsule Take 1 capsule by mouth twice daily for 180 days. Disp: 180 capsule Rfl: 1 Taking ASCORBIC ACID (VITAMIN C ORAL) Take 1 tablet by mouth twice daily. Disp: Rfl: 04/19/2018 at Unknown time silver sulfADIAZINE (SILVADENE) 1 % cream Apply to leg wounds as directed. Disp: 50 g Rfl: 1 Taking Zinc Sulfate 220 mg tab Take 1 tablet by mouth once daily for 14 days. Disp: 14 tablet Rfl: 0 Not Taking at Unknown time acetaminophen (TYLENOL) 500 mg tablet Take 1,000 mg by mouth every 8 hours as needed. Disp: Rfl: 04/19/2018 at Unknown time aspirin, enteric coated (ASPIRIN, ENTERIC COATED) 81 mg EC tablet Take 81 mg by mouth every evening. Disp: Rfl: Taking therapeutic multivitamin w/ iron (THERAGRAN-M) 9 mg iron-400 mcg tablet Take 1 tablet by mouth once daily. Disp: Rfl: Taking levothyroxine (LEVOXYL) 100 mcg tablet Take 1 tablet by mouth once daily. Take on empty stomach. For Thyroid. Disp: 30 tablet Rfl: 11 Taking COMPOUNDED PRESCRIPTION Calcium Alginate 4x4 Dressing, change daily Dx: Blister left leg with infection S80.822A, L08.9; Lymphedema I89.0. Wound dimensions: 4 x 3 cm Disp: 14 Each Rfl: 0 Taking Current hospital medications: warfarin 3 mg tab(s) (COUMADIN) 3 mg ORAL DAILY - WARFARIN acetaminophen 1,000 mg tab(s) (TYLENOL) 1,000 mg ORAL q 8 H PRN gabapentin 300 mg cap(s) (NEURONTIN) 300 mg ORAL BID lisinopril 2.5 mg tab(s) (ZESTRIL, PRINIVIL) 2.5 mg ORAL DAILY docusate sodium 100 mg cap(s) (COLACE) 100 mg ORAL DAILY PRN therapeutic multivitamin with iron (THERAGRAN-M) 1 tablet ORAL DAILY sodium hypochlorite 0.125 % (DAKIN'S QUARTER STRENGTH) TOPICAL DAILY aspirin, enteric coated 81 mg tab(s) (ASPIRIN, ENTERIC COATED) 81 mg ORAL DAILY pantoprazole [address] 20 mg tab(s) (PROTONIX) 20 mg ORAL DAILY levothyroxine 100 mcg tab(s) (SYNTHROID) 100 mcg ORAL DAILY silver sulfADIAZINE 1 % (SILVADENE,THERMAZENE) TOPICAL DAILY 0.9% NaCl 3-5 mL 3-5 mL INTRAVENOUS q 12 H ciprofloxacin 400 mg in D5W 200 mL (CIPRO) 400 mg INTRAVENOUS q 12 H furosemide 40 mg injection (LASIX) 40 mg INTRAVENOUS q 12 H 6a/6p vancomycin dosing and monitoring per pharmacy OTHER As Directed vancomycin 1.5 g in D5W 250 mL (VANCOCIN) 1.5 g INTRAVENOUS q 24 HR HYDROcodone 5 mg - acetaminophen 325 mg tablet (NORCO) 1 tablet ORAL q 4 H PRN CURRENT ALLERGIES: Allergies As of Date: 05/22/2018 (No Known Allergies) Fully Assessed 05/22/2018 COMPLETE REVIEW OF SYSTEMS: PAIN ASSESSMENT: CURRENTLY HAVING PAIN; PAIN SCALE: 2 on 0-10 scale per patient GENERAL: No weight loss, malaise or fevers RESPIRATORY: Dyspnea MUSCULOSKELETAL: b/l LE edema SKIN: Positive for ulcers: right LE ulcerations medial and posterior ankle NEURO: No history of headaches, syncope, paralysis, seizures or tremors OBJECTIVE PHYSICAL EXAM: Patient Vitals for the past 24 hrs: BP Temp Temp src Pulse Resp SpO2 Height Weight 05/23/18 0934 100/51 36.7 ?C (98.1 ?F) Axillary 74 18 97 % - - 05/23/18 0406 109/52 36.9 ?C (98.4 ?F) Axillary 76 16 95 % - - 05/22/18 2358 136/72 37.2 ?C (99 ?F) Oral 83 16 97 % - - 05/22/18 2200 - - - - - - 162.6 cm (5' 4) 93.2 kg (205 lb 7.5 oz) 05/22/18 2152 136/57 37.1 ?C (98.8 ?F) Oral 76 16 97 % - - 05/22/18 2028 118/69 - - 81 18 96 % - - 05/22/18 1557 - - - - - - 162.6 cm (5' 4) 93.4 kg (206 lb) 05/22/18 1552 126/78 37.1 ?C (98.8 ?F) Tympanic 66 18 - - - Body mass index is 35.27 kg/m?. GENERAL: Alert, no distress, cooperative SKIN: Positive findings: Erythema: ankles and feet, Ulcers EXTREMITIES: Positive findings: Pulses: Bilateral 1+ NEURO: Gait normal. Reflexes normal and symmetric. Sensation grossly intact, Cranial nerves II-XII intact PULSES: Abnormal pulses: dorsalis pedis 1+/1+, posterior tibial 1+/1+ WOUND: Clean, dry and intact, Reddened, Drainage serosanguinous, Erythema LOWER EXTREMITY PHYSICAL EXAMINATION Vasc: DP/PT +1/4, +2 pitting edema Neuro: Intact epicritic sensation Derm: Right lateral/posterior calf ulceration 9.0x6.0x0.2cm 80% granular with 20% central proximal necrotic, fibrotic area, No probe to bone, superifical, tenderness with palpation, serosang drainage, no malodor, mild?erythema/edema R LE. ?Right medial ulceration 6.0x3.0x0.5cm pre debridement and 6x3x0.6cm post debridement, ?80%fibrotic, serosang drainage, mild jennifer-wound erythema, edema, stable. Musc: m/s +4/5 DATA: Diagnostic tests reviewed for today's visit: Most recent labs and imaging results. CBC with diff: WBC 9.49 05/23/2018 RBC 4.09 05/23/2018 Hemoglobin 11.3 05/23/2018 Hematocrit 37.3 05/23/2018 MCV 91.2 05/23/2018 MCH 27.6 05/23/2018 MCHC 30.3 05/23/2018 RDW-CV 17.8 05/23/2018 Platelet Count 293 05/23/2018 MPV 9.5 05/23/2018 Neut% 67.3 05/22/2018 Lymph% 22.4 05/22/2018 [place]% 7.4 05/22/2018 Eosin% 2.4 05/22/2018 Baso% 0.5 05/22/2018 Abs Neut (ANC) 5.57 05/22/2018 Abs [place] 0.61 05/22/2018 Abs Eosin 0.20 05/22/2018 Abs Baso 0.04 05/22/2018 Glucose (mg/dL) Date Value 05/23/2018 92 Potassium (mmol/L) Date Value 05/23/2018 5.6 Sodium (mmol/L) Date Value 05/23/2018 134 Chloride (mmol/L) Date Value 05/23/2018 99 CO2 (mmol/L) Date Value 05/23/2018 25 Creatinine (mg/dL) Date Value 05/23/2018 1.25 BUN (mg/dL) Date Value 05/23/2018 34 Anion Gap (mmol/L) Date Value 05/23/2018 10 Calcium (mg/dL) Date Value 05/23/2018 8.6 SIGNATURE: Kapil Lopez DPM PATIENT NAME: Rosa Beltran DATE: May 23, 2018 TIME: 10:34 AM PROGRESS Observed: 05/23/2018 Status: COMPLETED Source: [facility] 8:54 AM [facility] OTHER CAMPUS REPOSITORY HNO ID: [id number] Author: Rayshawn Arzate (Pharmacist) Service: Pharmacy Author Type: Pharmacist Type: Progress Notes Filed: 05/23/2018 8:56 AM Note Text: PHARMACY VANCOMYCIN DOSING NOTE Patient Name: Rosa Beltran Admission Date: 05/22/2018 Date of Consult: 05/23/2018 Time of Consult: 8:55 AM Indication: Skin/Soft tissue infection Goal Range: 10-20 mcg/mL RECOMMENDATIONS/PLAN: Pharmacy consulted for vancomycin dosing for Rosa Beltran, a 82 year old, female who is being treated with vancomycin 1. Patient is currently ordered Vancomycin 1.5 g IV q24h. Today is day 2 of therapy. 2. No vancomycin level has been drawn for this dosing regimen. 3. The present dose of vancomycin is the recommended dosage for this patient at this time. Continue therapy as prescribed. 4. The next vancomycin level will be ordered for 05/26 unless clinically indicated sooner. (Pharmacy will order) We will follow patient renal function, vancomycin levels and doses with you during the course of therapy. Additional recommendations will appear in follow up notes. If you have any questions, please contact pharmacy at [phone]. Age: [age] year old Allergies: ALLERGIES No Known Allergies Last 3 Encounter Wt Readings: Date: Wt: 05/22/2018 93.2 kg (205 lb 7.5 oz) 04/20/2018 96.6 kg (212 lb 15.4 oz) 04/14/2018 96.2 kg (212 lb 1.6 oz) Last 1 Encounter Ht Readings: Date: Ht: 05/22/2018 162.6 cm (5' 4) CrCl: 39 mL/min Temp (24hrs), Av.1 ?C (98.8 ?F), Min:36.9 ?C (98.4 ?F), Max:37.2 ?C (99 ?F) - Current Temp: 36.9 ?C (98.4 ?F) Labs BUN (mg/dL) Date Value 05/23/2018 34 (H) 05/22/2018 36 (H) 04/26/2018 27 (H) Creatinine (mg/dL) Date Value 05/23/2018 1.25 (H) 05/22/2018 1.31 (H) 04/26/2018 1.31 (H) WBC (k/uL) Date Value 05/23/2018 9.49 05/22/2018 8.27 04/26/2018 6.09 Vancomycin Levels: No results found for: Herrera Beck CBC Collected: 05/23/2018 Status: F Source: [facility] 6:28 AM [facility] OTHER CAMPUS REPOSITORY TYPE CODE TESTS RESULT OUT OF REFERENCE UNITS RANGE LAB WBC 3.70-11.00 k/uL WBC 9.49 LAB RBC 3.90-5.20 m/uL RBC 4.09 LAB HGB 11.5-15.5 g/dL Low Hemoglobin 11.3 LAB HCT 36.0-46.0 % Hematocrit 37.3 LAB MCV 80.0-100.0 fL MCV 91.2 LAB MCH 26.0-34.0 pG MCH 27.6 LAB MCHC 30.5-36.0 g/dL Low MCHC 30.3 LAB RDWCV 11.5-15.0 % RDW-CV High 17.8 LAB PLTCT 150-400 k/uL Platelet Count 293 LAB MPV 9.0-12.7 fL MPV 9.5 Performed By: #### CBC, PT, CMP #### [facility] [address] [place] [address] PROTIME Collected: 05/23/2018 Status: F Source: [facility] 6:28 AM [facility] OTHER [place] REPOSITORY TYPE CODE TESTS RESULT OUT OF RANGE REFERENCE UNITS LAB PSEC 9.7-13.0 sec High PT Sec 20.1 LAB INR 0.9-1.3 High PT INR 2.0 Result Comment: Vitamin K Antagonist (VKA) Therapeutic Range: INR 2 to 3 (Target INR of 2.5) Note: For patients treated with VKA drugs, such as warfarin, the [place] [employer] 2012 Guideline recommends a therapeutic INR range of 2 to 3 (target INR of 2.5). This recommendation includes high-risk patients with antiphospholipid syndrome with previous arterial or venous thromboembolism, current-generation mechanical or bioprosthetic aortic heart valve replacement. Note: Patients with mechanical aortic valve replacement and additional risk factors for thromboembolic events (atrial fibrillation, previous thromboembolism, LV dysfunction, hypercoagulable conditions) or an older generation mechanical AVR (i.e., ball in-Cage) or any mechanical MVR should have a INR therapeutic range of 2.5 to 3.5 (target INR of 3). Shweta GH, et al. Chest 2012, 141:7S-47S Genevieve ESTRADA, et al. [facility] 2017, 70: 252-289 Performed By: #### CBC, PT, CMP #### [facility] [address] [facility] [phone] COMP METABOLIC PANEL Collected: 05/23/2018 Status: F Source: [facility] 6:28 AM [facility]IN[facility] OTHER CAMPUS REPOSITORY TYPE CODE TESTS RESULT OUT OF REFERENCE UNITS RANGE LAB TP 6.3-8.0 g/dL Protein, Total 8.0 LAB ALB 3.9-4.9 g/dL Low Albumin 3.1 LAB CA 8.5-10.2 mg/dL Calcium, Total 8.6 LAB TBIL 0.2-1.3 mg/dL Bilirubin, Total 0.7 LAB ALKP 32-117 U/L Alkaline Phosphatase 74 LAB AST 13-35 U/L AST 32 LAB GLU 74-99 mg/dL Glucose 92 Result Comment: The [place] [employer] (ADA) provides guidance for cutoff values for fasting glucose and random glucose. The ADA defines fasting as no caloric intake for at least 8 hours. Fas ting plasma glucose results between 100 to 125 mg/dL indicate increased risk for diabetes (prediabetes). Fasting plasma glucose results greater than or equal to 126 mg/dL meet the criteria for diagnosis of diabetes. In the absence of unequivocal hyperglycemia, results should be confirmed by repeat testing. In a patient with classic symptoms of hyperglycemia or hyperglycemic crisis, random plasma glucose results greater than or equal to 200 mg/dL meet the criteria for diagnosis of diabetes. Reference: Standards of Medical Care in Diabetes 2016, [place] [employer]. Diabetes Care. 2016.39(Suppl 1). LAB BUN 7-21 mg/dL BUN High 34 LAB CRET 0.58-0.96 mg/dL Creatinine High 1.25 LAB NA 136-144 mmol/L Low Sodium 134 LAB K 3.7-5.1 mmol/L Potassium High 5.6 LAB CL 97-105 mmol/L Chloride 99 LAB CO2 22-30 mmol/L CO2 25 LAB AGAP 9-18 mmol/L Anion Gap 10 LAB ALT 7-38 U/L ALT 8 LAB GFRAA eGFR- Amer. 50 LAB GFRNAA . eGFR-All Other Races 41 Result Comment: eGFR (Estimated GFR) Units of measure: mL/min/1.73 meters squared eGFR is derived from the reexpressed MDRD Study equation using the following parameters: serum creatinine, age, gender and race. The creatinine assay has been calibrated to be traceable to IDMS. An eGFR <60 mL/min/1.73m2 for >3 months is consistent with chronic kidney disease. Refer to KDOQI guidelines for clinical interpretation. In patients with unstable renal function, e.g. those with acute kidney injury, the eGFR may not accurately reflect actual GFR. Performed By: #### CBC, PT, CMP #### [facility] [address] [facility] [phone] PROGRESS Observed: 05/22/2018 Status: COMPLETED Source: [facility] 10:22 PM CLINIC OTHER CAMPUS REPOSITORY O ID: [id number] Author: Amauri Lund (Pharmacist) Service: Pharmacy Author Type: Pharmacist Type: Progress Notes Filed: 05/22/2018 10:24 PM Note Text: PHARMACY VANCOMYCIN DOSING NOTE Patient Name: Rosa Beltran Admission Date: 05/22/2018 Date of Consult: 05/22/2018 Time of Consult: 10:22 PM Indication: Skin/Soft tissue infection Goal Range: 10-20 mcg/mL RECOMMENDATIONS/PLAN: Pharmacy consulted for vancomycin dosing for Rosa Beltran, a 82 year old, female who is being treated with vancomycin 1. Patient is currently ordered Vancomycin 1 g IV q12h. Today is day 1 of therapy. 2. No vancomycin level has been drawn for this dosing regimen. 3. Will adjust vancomycin to 1.5 g with a dosing interval of q24h 4. The next vancomycin level will be ordered for 05/26 unless clinically indicated sooner. (Pharmacy will order) We will follow patient renal function, vancomycin levels and doses with you during the course of therapy. Additional recommendations will appear in follow up notes. If you have any questions, please contact pharmacy at [phone]. Age: [age] year old Allergies: ALLERGIES No Known Allergies Last 3 Encounter Wt Readings: Date: Wt: 05/22/2018 93.2 kg (205 lb 7.5 oz) 04/20/2018 96.6 kg (212 lb 15.4 oz) 04/14/2018 96.2 kg (212 lb 1.6 oz) Last 1 Encounter Ht Readings: Date: Ht: 05/22/2018 162.6 cm (5' 4) CrCl: 37 mL/min Temp (24hrs), Av.1 ?C (98.8 ?F), Min:37.1 ?C (98.8 ?F), Max:37.1 ?C (98.8 ?F) - Current Temp: 37.1 ?C (98.8 ?F) Labs BUN (mg/dL) Date Value 05/22/2018 36 (H) 04/26/2018 27 (H) 04/25/2018 28 (H) Creatinine (mg/dL) Date Value 05/22/2018 1.31 (H) 04/26/2018 1.31 (H) 04/25/2018 1.22 (H) WBC (k/uL) Date Value 05/22/2018 8.27 04/26/2018 6.09 04/25/2018 5.92 Vancomycin Levels: No results found for: DANISHA Lund Pharmacist HISTORY PHYSICAL Observed: 05/22/2018 Status: COMPLETED Source: [facility] 8:31 PM CLINIC OTHER CAMPUS REPOSITORY [facility] ID: [id number] Author: Sharlene Angel Service: General Internal Medicine Author Type: Physician Type: HANDP Filed: 05/22/2018 10:33 PM Note Text: HOSPITAL MEDICINE HISTORY AND PHYSICAL EXAM PATIENT NAME: Rosa Beltran SERVICE DATE: 05/22/2018 SERVICE TIME: 8:31 PM Primary Care Physician: Mani Newman MD NIGHT COVERAGE Page [phone] for any questions between 5.30p-7.30a ASSESSMENT AND PLAN Active Hospital Problems Diagnosis - Venous stasis ulcer of right lower leg with edema of right lower leg (HCC) No leukocytosis, afebrile. Drainage appears serosang. Increased BLE edema. Will give lasix. RLE with blanching erythema, will give cipro and vanco. Check ESR, CRP, WCx. Podiatry and wound consult. - Heart failure with preserved ejection fraction (HCC) Increased BLE edema, CXR suggestive of fluid overload and pt complains of increased SOB. Lasix BID. - Chronic atrial fibrillation (HCC) On coumadin, rate controlled, INR therapeutic. Monitor on tele. - Anticoagulation goal of INR 2 to 3 - CKD (chronic kidney disease), stage III (HCC) Renal function stable. - Hyperkalemia Giving lasix. Reassess with morning labs. SUBJECTIVE CHIEF COMPLAINT: Worsening leg wounds. HPI: This is a 82 year old female with PMHx of venous stasis ulcer RLE, CHF, CAD s/p PCI, AF on coumadin, Pulm HTN, HTN, HLD, BEBA, RA, hypothyroid? who presents with worsening RLE wound over the past week. She has had increased serosang drainage, BLE edema, and pain. Associated subjective chills. She was admitted last month for same, WCx on 04/21/18 showing pseudomonas aeruginosa, tx with zosyn then de-escalated to cipro and amoxicillin till 05/05/18. MRI was negative of OM at that time. Had bedside debridement during previous hospitalization. She was discharged to SNF and followed with wound center. She was previously on zaroxolyn and aldactone for lymphedema but this was d/c'ed last admission d/t hypotension, pt thinks it was restarted not but sure. No leukocytosis, afebrile. XR ankle, tib/fib: +soft tissue edema. No evidence of OM CXR: likely fluid overload BNP 1600 which is improved from previous. PAST MEDICAL HISTORY: PAST MEDICAL HISTORY Diagnosis Date - Acquired hypothyroidism - Acute respiratory failure with hypoxia (HCC) 09/30/2017 - Atrial fibrillation ([facility]) - CAD (coronary artery disease) Dr. Brenda Awan Hts, Promus element K[facility] LAD 11/20/2012, Stress test 04/2014 inferoapical reversible ischemia,small LVEF 48- 50%, LHC 12/2014 L main-normal, LAD widely patent, Cx diffuse mild luminal irregularities with 80%focal stenosis distal, RCA dominant with minimal luminal irregularities. 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 - Pure hypercholesterolemia - Rheumatoid arthritis (HCC) 2007 - Sleep apnea - Stented coronary artery 12/29/2016 PAST SURGICAL HISTORY: PAST SURGICAL HISTORY Procedure Laterality Date - CC CORONARY STENT 11/20/2012 KIM[facility] LAD - CC CORONARY STENT 12/20/2014 K[facility], Cfx - SECTION HX - COLONOSCOPY 06/10/2017 [facility], Nonspecific cecal ulcer - GASTRIC BYPASS HX 1986 - HERNIA REPAIR HX 1987; 1989 - PAST SURGICAL HISTORY OF Right 09/2015 right tibia fracture ORIF - PAST SURGICAL HISTORY OF Right 01/20/2016 Removal of hardware, right tibia - TOTAL KNEE REPLACEMENT Right 2003 [facility] Gen. - TOTAL KNEE REPLACEMENT Left 2004 [facility] Gen. FAMILY HISTORY: No family history on file. SOCIAL HISTORY: Social History Substance Use Topics - Smoking status: Passive Smoke Exposure - Never Smoker - Smokeless tobacco: Never Used Comment: smoked for 40 years - Alcohol use No MEDICATIONS: Reviewed ALLERGIES: ALLERGIES No Known Allergies REVIEW OF SYSTEM: PAIN ASSESSMENT: Negative for pain, history of chronic pain, or current treatment for a chronic pain condition. GENERAL: No weight loss, malaise or fevers. HEENT: Negative for frequent or significant headaches, No changes in hearing or vision, no nose bleeds or other nasal problems NECK: Negative for lumps, goiter, pain and significant neck swelling RESPIRATORY: +SOB. CARDIOVASCULAR: Negative for chest pain, leg swelling or palpitations. GI: No nausea, vomiting, or diarrhea : No history of dysuria, frequency or incontinence. MUSCULOSKELETAL: increased BLE edema, serosang drainage. SKIN: Negative for lesions, rash, and itching. PSYCH: Negative for sleep disturbance, mood disorder and recent psychosocial stressors. HEMATOLOGY/LYMPHOLOGY: Negative for prolonged bleeding, bruising easily or swollen nodes. ENDOCRINE: Negative for cold or heat intolerance, polyuria, polydipsia and goiter. NEURO: No history of headaches, syncope, paralysis, seizures or tremors OBJECTIVE PHYSICAL EXAM: BP 136/57 Pulse 76 Temp (Src) 98.8 (Oral) Resp 16 Ht 5' 4 (1.63m) Wt 205 lb 7.5 oz (93.2kg) SpO2 97% BMI 35.25 kg/(m2). GENERAL: alert, no distress, cooperative SKIN: RLE with blanching erythema, TTP. NECK: no jugulovenous distention, supple BACK: Back symmetric, Normal curvature, ROM normal, No CVAT. LUNGS: Lungs clear to auscultation. Good diaphragmatic excursion. CARDIAC: RRR; no rubs, murmurs, or gallops ABDOMEN: Abdomen soft, non-tender. BS normal. No masses or organomegaly. EXTREMITIES: BLE edema. b/l ankles with kerlex dressing intact. NEURO: Sensation grossly intact., Cranial nerves II-XII intact DATA: Diagnostic tests reviewed for today's visit: Most recent labs Most recent imaging Most recent EKG CBC: WBC 8.27 05/22/2018 Hemoglobin 11.6 05/22/2018 Hematocrit 38.4 05/22/2018 Platelet Count 309 05/22/2018 CMP: Sodium 133 05/22/2018 Potassium 5.5 05/22/2018 BUN 36 05/22/2018 Creatinine 1.31 05/22/2018 Glucose 87 05/22/2018 Chloride 98 05/22/2018 CO2 25 05/22/2018 VTE Prophylaxis: Patient is already anti-coagulated. Disposition: TBD Plan of care discussed with: Patient, Family/Other: and RN SIGNATURE: Justin Dangelo PA-C DATE: May 22, 2018 TIME: 8:31 PM Pt seen and examined Case discussed with mid level provider [place] findings confirmed and plan as outlined above Heart rrr no mgr Lung cta b 1. LE edema/wound infection: check wound cx, cipro/vanc, consider ID consult WOUND Observed: 05/22/2018 Status: F Source: [facility] CULTURE/STAIN 8:30 PM CLINIC OTHER CAMPUS REPOSITORY Sp. Request/Comment: - Swab Smear Result - Many Gram negative bacilli --> ABNORMAL ALERT Few --> ABNORMAL ALERT Gram positive cocci --> ABNORMAL ALERT Few --> ABNORMAL ALERT Gram positive bacilli --> ABNORMAL ALERT No Polymorphonuclear Leukocytes Culture Result - Mixed organisms with no one type predominant including Moderate --> ABNORMAL ALERT Proteus mirabilis --> ABNORMAL ALERT Moderate --> ABNORMAL ALERT Pseudomonas aeruginosa --&gt ; ABNORMAL ALERT Moderate --> ABNORMAL ALERT Staphylococcus aureus --> ABNORMAL ALERT Moderate skin sanchez No susceptibility testing done. Call lab within 72 hours to initiate work-up if clinically indicated. Performed By: #### WCUL #### [facility] [address] [place], [place] [address] ED PROV NOTE Observed: 05/22/2018 Status: COMPLETED Source: [facility] 8:06 PM CLINIC OTHER CAMPUS REPOSITORY HNO ID: [id number] Author: Karan Diallo DO Service: Emergency Medicine Author Type: Physician Type: ED Provider Notes Filed: 05/24/2018 7:48 AM Note Text: ED Provider Note Patient Name: Rosa Beltran SERVICE DATE: 05/22/18 History Patient presents with: Edema Leg Pain Wound Check 82-year-old female medical history of hypothyroidism, acute respiratory failure with hypoxia, A. fib, CAD, COPD, depression, hypertension, dyslipidemia, and rheumatoid arthritis presents from wound center worsening wound infection and increased worse or any edema and worsening wounds. Her wound in her right lower extremity has been nonstop drainage. Increased pain in legs and feet. She reports that her wounds were improving, however, over the past week they have been worse. She reports she is on one antibiotic but is out of another. She is unsure what antibiotic she is currently on. Subjective fever, chills, and sweats. No nausea, vomiting, or Laura pain. No chest pain or shortness of breath. All other review systems unremarkable. PAST MEDICAL HISTORY Diagnosis Date - Acquired hypothyroidism - Acute respiratory failure with hypoxia (HCC) 09/30/2017 - Atrial fibrillation (HCC) - CAD (coronary artery disease) Dr. Brenda Awan Hts, Promus element K[facility] LAD 11/20/2012, Stress test 04/2014 inferoapical reversible ischemia,small LVEF 48- 50%, LHC 12/2014 L main-normal, LAD widely patent, Cx diffuse mild luminal irregularities with 80%focal stenosis distal, RCA dominant with minimal luminal irregularities. PTCA and Promus premier KIMMY distal Cx 12/20/2014, RX aspirin and plavix - Cecal ulcer 06/10/2017 - Chronic atrial fibrillation (HCC) 10/08/2016 - COPD (chronic obstructive pulmonary disease) (HCC) - Depressive disorder 12/29/2016 - Disruption of surgical wound 09/2015 Right tibia - Dorsalgia 12/29/2016 - Dyslipidemia - Gastric bypass status for obesity 12/29/2016 - Gastroesophageal reflux disease without esophagitis 10/08/2016 - HTN (hypertension) - Muscular weakness 12/29/2016 - Primary osteoarthritis involving multiple joints 12/29/2016 - Pure hypercholesterolemia - Rheumatoid arthritis (HCC) 2007 - Sleep apnea - Stented coronary artery 12/29/2016 PAST SURGICAL HISTORY Procedure Laterality Date - CC CORONARY STENT 11/20/2012 [facility] - CC CORONARY STENT 12/20/2014 [facility], Cfx - SECTION HX - COLONOSCOPY 06/10/2017 [facility], Nonspecific cecal ulcer - GASTRIC BYPASS HX 1986 - HERNIA REPAIR HX 1987; 1989 - PAST SURGICAL HISTORY OF Right 09/2015 right tibia fracture ORIF - PAST SURGICAL HISTORY OF Right 01/20/2016 Removal of hardware, right tibia - TOTAL KNEE REPLACEMENT Right 2003 [facility] Gen. - TOTAL KNEE REPLACEMENT Left 2004 [facility] Gen. No family history on file. Social History Social History Main Topics - Smoking status: Passive Smoke Exposure - Never Smoker - Smokeless tobacco: Never Used Comment: smoked for 40 years - Alcohol use No - Drug use: No - Sexual activity: Not on file ALLERGIES No Known Allergies Review of Systems Constitutional: Positive for chills, fatigue and fever. HENT: Negative for congestion, ear pain and sore throat. Eyes: Negative for pain and visual disturbance. Respiratory: Negative for cough, choking and shortness of breath. Cardiovascular: Positive for leg swelling. Negative for chest pain and palpitations. Gastrointestinal: Negative for abdominal pain, nausea and vomiting. Musculoskeletal: Negative for back pain and neck pain. Skin: Positive for wound. Negative for rash. Neurological: Negative for weakness and numbness. Physical Exam BP 126/78 Pulse 66 Temp (Src) 98.8 (Tympanic) Resp 18 Ht 5' 4 (1.63m) Wt 206 lb (93.4kg) BMI 35.34 kg/(m2). Physical Exam Constitutional: She is oriented to person, place, and time. She appears well-developed and well-nourished. HENT: Head: Normocephalic and atraumatic. Eyes: EOM are normal. Pupils are equal, round, and reactive to light. Neck: Normal range of motion. Neck supple. Cardiovascular: Normal rate and regular rhythm. Pulmonary/Chest: Effort normal and breath sounds normal. No respiratory distress. She has no wheezes. Abdominal: Soft. She exhibits no distension and no mass. There is no tenderness. There is no rebound and no guarding. Musculoskeletal: Lower extremities show edema bilaterally. Right lower extremity shows a large and deep wound over the medial aspect of her lower leg. Foul-smelling odor There also appears to be wounds on the backside of her leg. There are seeping. No palpable crepitus. Compartments soft. Pedal pulses intact. Cap refill less than 3 seconds. Left lower extremity shows edema. No erythema noted. Only slight wound on the heel. Neurovascular intact. Neurological: She is alert and oriented to person, place, and time. No cranial nerve deficit or sensory deficit. She exhibits normal muscle tone. Coordination normal. Skin: Capillary refill takes less than 2 seconds. +wound RLE Psychiatric: She has a normal mood and affect. Nursing note and vitals reviewed. Diagnostic Testing ED Labs Ordered and Reviewed COMP METABOLIC PANEL - Abnormal; Notable for the following: Result Value Ref Range Protein, Total 8.9 (*) 6.3 - 8.0 g/dL Albumin 3.2 (*) 3.9 - 4.9 g/dL BUN 36 (*) 7 - 21 mg/dL Creatinine 1.31 (*) 0.58 - 0.96 mg/dL Sodium 133 (*) 136 - 144 mmol/L Potassium 5.5 (*) 3.7 - 5.1 mmol/L All other components within normal limits CBC + DIFF - Abnormal; Notable for the following: MCHC 30.2 (*) 30.5 - 36.0 g/dL RDW-CV 18.0 (*) 11.5 - 15.0 % All other components within normal limits PROTHROMBIN TIME/PT - Abnormal; Notable for the following: PT Sec 22.4 (*) 9.7 - 13.0 sec PT INR 2.2 (*) 0.9 - 1.3 All other components within normal limits NT PRO BNP - Abnormal; Notable for the following: NT Pro BNP 1,600 (*) <450 pg/mL All other components within normal limits BLOOD CULTURE DRAW BLOOD CULTURE DRAW CRITICAL CARE PROFILE VENOUS ED imaging studies ordered and reviewed Chest x-ray with bilateral history distal prominence and hazy opacity in right lower lobe X-ray of right ankle/tib-fib shows marketed soft tissue edema/soft tissue ulceration just above the ankle versus some sort of external material compressing soft tissue EKG ordered and interpreted as atrial fibrillation rate of 79 low-voltage QRS Procedures ED Course / Clinical Impression Clinical Impressions as of May 24 740 Bilateral cellulitis of lower leg Wound of right lower extremity, initial encounter Failure of outpatient treatment Hyperkalemia Elevated brain natriuretic peptide (BNP) level Abnormal chest x-ray MDM / Disposition / Plan IV started Treated with IV fluids Nursing notes and vital signs reviewed Triage note reviewed Medications administered [place] Cipro vancomycin Reviewed and summarized previous medical records including previous wound culture is showing pseudomonas growth Zosyn resistant Discussed with admitting hospitalist team physician conservation assistant Giancarlo Dangelo - agreeable to admission for further treatment and care Patient presents with bilateral lower started any cellulitis. Wounds are worsening on right lower extremity. Sent by wound clinic. Patient currently unsure of what antibiotic she is on. She thinks it could be Cipro on further discussion. The wound on the medial aspect of her right lower leg is large. Malodor. Whitish base. We see revealed no leukocytosis. Overall unremarkable. CMP does show renal insufficiency. She has had a history of renal insufficiency on past laboratory studies. BUN 36, creatinine 1.31, sodium 133. Potassium is elevated at 5.5. EKG was ordered which showed no peaked T waves. Atrial fibrillation noted. INR was 2.2. BNP was elevated at 1600. X-ray was ordered a right lower extremity which showed soft tissue edema. Soft tissue ulceration. No osteomyelitis noted. Chest x-ray was ordered to make sure there is no significant fluid overload. It read bilateral interstitial prominence. There appears to be a posterior right lower lobe from edema although infection may also be present. Clinically patient does not appear to have pneumonia. At this time we will follow this without drifting treatment for his pneumonia. Patient will be given vancomycin and Cipro for the cellulitis. Cultures revealed that patient grew pseudomonas. It is resistant to Zosyn. Susceptible to Cipro. At this time we will treat for that. Plan is for patient to be admitted to hospitalist service. Spoke with Justin Bolivar NP of hospitalist service. Agreeable to Admission. The patient was ADMITTED TO: Regular nursing floor. Condition at time of disposition: stable SIGNATURE: DAFNE Lester (Pa) 05/22/182119 Attending Note I have personally performed a face to face assessment of the patient and have reviewed the PA/DADO OPERATOR note. My [place] findings include: History is as 82-year-old female past medical history atrial fibrillation on Coumadin hypothyroidism COPD rheumatoid arthritis presents with worsening appearance of chronic wounds to the bilateral lower extremities. Patient has had chronic wounds to the bilateral lower extremities right greater than left. She reports nonstop foul-smelling drainage from the right wound. She has had increased pain to the bilateral lower extremities that is sharp and throbbing worsened with palpation/movement of the area and relieved by nothing. She was sent over from the wound care center. She reports subjective fever chills sweats without recorded fever. Denies chest pain shortness of breath. No abdominal pain or vomiting. Exam is vitals within normal limits. Alert oriented no acute distress. Head normal cephalic atraumatic. Pupils equal reactive. Neck supple nontender. Heart irregular rhythm with normal rate. Lungs diminished throughout. Abdomen soft nontender nondistended. Patient has wounds to the bilateral ankle region right greater than left with the foul-smelling odor/seepage to the right. No overlying bulla or skin sloughing noted. No crepitus. Distal pulses and sensory intact. Mood and affect normal. Remainder of exam unremarkable. Assessment/Plan are hemodynamically stable upon arrival. Blood and wound cultures obtained. Lactate normal. Elevated BUN and creatinine mildly above baseline with resulting hyperkalemia without evidence of EKG changes secondary to hyperkalemia. Will treat with IV fluids at this time. X-ray of right tib-fib/ankle shows marketed soft tissue edema with questionable soft tissue ulceration. No findings suggestive of osteomyelitis noted. Patient treated with vancomycin and ciprofloxacin based on previous wound culture results. Discussed with admitting hospitalist team. Admit to medicine. Other additions or changes: As edited - bold type Signature: Karan Diallo DO Date: 05/24/2018 Time: 7:43 AM Karan Diallo DO 05/24/18 0748 EKG Observed: 05/22/2018 Status: F Source: [facility] 7:47 PM [facility]INIC OTHER CAMPUS REPOSITORY NAME : ROSA BELTRAN PID : [id number] : 1935 Gender : Female Race : Unknown ORD : [id number] Procedure Date : May 22 2018 19:47:13 Edit Date : May 24 2018 08:31:12 Diagnosis:ATRIAL FIBRILLATION LOW VOLTAGE QRS RSR' OR QR PATTERN IN V1 SUGGESTS RIGHT VENTRICULAR CONDUCTION DELAY BORDERLINE ECG WHEN COMPARED WITH ECG OF 17-MAR-2018 19:25, RSR' PATTERN IN V1 HAS REPLACED INCOMPLETE RIGHT BUNDLE BRANCH BLOCK Confirmed by MD Guillaume Qarab ([id number]) on 05/24/2018 8:31:09 AM Ventricular Rate : 79 BPM Atrial Rate : 101 BPM QRS Duration : 78 ms Q-T Interval : 348 ms QTC Calculation(Bezet) : 399 ms R Mark : 82 degrees T Mark : 7 degrees Test Reason : Arrhythmia Location : 1 : ER 9 Overread By : MD Guillaume Qarab Edited By : MD Guillaume Qarab Referred By : , Acquired by : MER, Observed: 05/22/2018 Status: F Source: [facility] BLOOD CULTURE 7:35 PM [facility] OTHER [facility] REPOSITORY Sp. Request/Comment: - The blood culture bottles are underfilled. Adding volume lower or higher than the 8 to 10 mL per bottle, which is the manufacturers recommended volume, may adversely affect the re covery and/or detection of organisms. 8.2CC Culture Result - No growth 5 days Performed By: #### BLCUL #### [facility] [address] [place], [place] [address] Observed: 05/22/2018 Status: F Source: [facility] BLOOD CULTURE 7:15 PM [facility] OTHER [facility] [place] REPOSITORY Culture Result - No growth 5 days Performed By: #### BLCUL #### [facility] [address] [place], [place] [address] XR TIBIA FIBULA 2V Observed: 05/22/2018 Status: F Source: [facility] AP/LAT RT 7:08 PM [facility] REPOSITORY * * *Final Report* * * DATE OF EXAM: May 22 2018 7:08PM MDX [id number] - XR TIBIA FIBULA 2V AP/LAT RT / PROCEDURE REASON: Infection suspected * * * * Physician Interpretation * * * * HISTORY: Infection suspected TECHNIQUE: Right tibia/fibula, 2 views (5 radiographs). Right ankle, 3 views. COMPARISON: Right tibia/fibula 04/21/2018 RESULT: There is no bony destructive change to indicate acute osteomyelitis. Again seen is remote healed fracture deformity of the distal tibia and fibula. Unchanged plate and screw fixation of the distal fibula with intact hardware. Ghost tracks in the mid and distal tibia from prior hardware that has since been removed appears unchanged. Partially seen total knee arthroplasty. Bones are osteopenic. There is quite a bit of generalized soft tissue edema increased since the prior exam. Presumably there is external material compressing the soft tissue at the region of the distal tibia and fibula unless this appearance is from a soft tissue ulceration. Pes planus. Posterior subtalar joint not seen uncertain if this is positional or from bony fusion. Calcaneal spurs. There is marked soft tissue swelling at the dorsum of the foot. IMPRESSION: MARKED SOFT TISSUE EDEMA ? SOFT TISSUE ULCERATION JUST ABOVE THE ANKLE VERSUS SOME SORT OF EXTERNAL MATERIAL COMPRESSING THE SOFT TISSUE CAUSING THIS APPEARANCE. NO FINDINGS OF OSTEOMYELITIS REMOTE POSTTRAUMATIC AND POSTSURGICAL CHANGE Stereotype Finisher: [facility] Transcribe Date/Time: May 22 2018 7:26P Dictated by : SHAMIKA MCKEON MD This examination was interpreted and the report reviewed and electronically signed by: SHAMIKA MCKEON MD on May 22 2018 7:32PM EST [id number] XR CHEST 1V FRONTAL Observed: 05/22/2018 Status: F Source: [facility] 7:07 PM CLINIC OTHER CAMPUS REPOSITORY * * *Final Report* * * DATE OF EXAM: May 22 2018 7:07PM MDX [id number] - XR CHEST 1V FRONTAL PORT / PROCEDURE REASON: Fatigue and malaise * * * * Physician Interpretation * * * * EXAMINATION: CHEST RADIOGRAPH (PORTABLE SINGLE VIEW AP) Exam Date/Time: 05/22/2018 7:07 PM Clinical History: Fatigue and malaise MQ: [id number] Comparison: 03/17/2018 RESULT: See impression. IMPRESSION: Lines, tubes, and devices: None. Lungs and pleura: There is bilateral interstitial prominence and hazy opacity in the right lower lobe probably from edema although associated infection may also be present. Mild linear atelectasis left lower lobe. There is no significant pleural effusion. The chin overlies and limits evaluation of the left lung apex. Cardiomediastinal silhouette: Stable enlarged cardiomediastinal silhouette with prominence of the central pulmonary vasculature. Other: No acute bony abnormality. Chronic rotator cuff tears. Stereotype Finisher: [facility] Transcribe Date/Time: May 22 2018 7:22P Dictated by : SHAMIKA MCKEON MD This examination was interpreted and the report reviewed and electronically signed by: SHAMIKA MCKEON MD on May 22 2018 7:24PM EST [id number] XR ANKLE 3V AP/LAT/OBL Observed: 05/22/2018 Status: F Source: [facility] 7:07 PM [facility] OTHER CAMPUS REPOSITORY * * *Final Report* * * DATE OF EXAM: May 22 2018 7:07PM MDX [id number] - XR ANKLE 3V AP/LAT/OBL RT / PROCEDURE REASON: Infection suspected * * * * Physician Interpretation * * * * HISTORY: Infection suspected TECHNIQUE: Right tibia/fibula, 2 views (5 radiographs). Right ankle, 3 views. COMPARISON: Right tibia/fibula 04/21/2018 RESULT: There is no bony destructive change to indicate acute osteomyelitis. Again seen is remote healed fracture deformity of the distal tibia and fibula. Unchanged plate and screw fixation of the distal fibula with intact hardware. Ghost tracks in the mid and distal tibia from prior hardware that has since been removed appears unchanged. Partially seen total knee arthroplasty. Bones are osteopenic. There is quite a bit of generalized soft tissue edema increased since the prior exam. Presumably there is external material compressing the soft tissue at the region of the distal tibia and fibula unless this appearance is from a soft tissue ulceration. Pes planus. Posterior subtalar joint not seen uncertain if this is positional or from bony fusion. Calcaneal spurs. There is marked soft tissue swelling at the dorsum of the foot. IMPRESSION: MARKED SOFT TISSUE EDEMA ? SOFT TISSUE ULCERATION JUST ABOVE THE ANKLE VERSUS SOME SORT OF EXTERNAL MATERIAL COMPRESSING THE SOFT TISSUE CAUSING THIS APPEARANCE. NO FINDINGS OF OSTEOMYELITIS REMOTE POSTTRAUMATIC AND POSTSURGICAL CHANGE Stereotype Finisher: [facility] Transcribe Date/Time: May 22 2018 7:26P Dictated by : SHAMIKA MCKEON MD This examination was interpreted and the report reviewed and electronically signed by: SHAMIKA MCKEON MD on May 22 2018 7:32PM EST [id number] C-REACTIVE PROTEIN Collected: 05/22/2018 Status: F Source: [facility] 6:37 PM [facility] OTHER CAMPUS REPOSITORY TYPE CODE TESTS RESULT OUT OF REFERENCE UNITS RANGE LAB CRP <0.9 mg/dL High C-Reactive 5.0 Protein Performed By: #### CRP #### [facility] [address] [place] [address] #### WSR #### [facility] [address], [place] [address] SED RATE WESTERGREN Collected: 05/22/2018 Status: F Source: [facility] 6:37 PM [facility] OTHER CAMPUS REPOSITORY TYPE CODE TESTS RESULT OUT OF REFERENCE UNITS RANGE LAB WSR 0-20 mm/hr Sed Rate High [place] 79 Performed By: #### CRP #### [facility] [address] [facility] [phone] #### WSR #### [facility] [address] [place], [place] [address] CBC AND DIFFERENTIAL Collected: 05/22/2018 Status: F Source: [facility] 6:21 PM [facility] OTHER [facility] [place] REPOSITORY TYPE CODE TESTS RESULT OUT OF REFERENCE UNITS RANGE LAB WBC 3.70-11.00 k/uL WBC 8.27 LAB RBC 3.90-5.20 m/uL RBC 4.23 LAB HGB 11.5-15.5 g/dL Hemoglobin 11.6 LAB HCT 36.0-46.0 % Hematocrit 38.4 LAB MCV 80.0-100.0 fL MCV 90.8 LAB MCH 26.0-34.0 pG MCH 27.4 LAB MCHC 30.5-36.0 g/dL Low MCHC 30.2 LAB RDWCV 11.5-15.0 % RDW-CV High 18.0 LAB PLTCT 150-400 k/uL Platelet Count 309 LAB MPV 9.0-12.7 fL MPV 9.6 LAB ANEUT % Neut% 67.3 LAB AANEUT 1.45-7.50 k/uL Abs Neut 5.57 LAB ALYMP % Lymph% 22.4 LAB AALYMP 1.00-4.00 k/uL Abs Lymph 1.85 LAB AMONO % [place]% 7.4 LAB AAMONO <0.87 k/uL Abs [place] 0.61 LAB AEOS % Eosin% 2.4 LAB AAEOS <0.46 k/uL Abs Eosin 0.20 LAB ABASO % Baso% 0.5 LAB AABASO <0.11 k/uL Abs Baso 0.04 Performed By: #### CBCDIF, PT, CMP #### [facility] [address] [place] [address] PROTIME Collected: 05/22/2018 Status: F Source: [facility] 6:21 PM [facility] OTHER CAMPUS REPOSITORY TYPE CODE TESTS RESULT OUT OF RANGE REFERENCE UNITS LAB PSEC 9.7-13.0 sec High PT Sec 22.4 LAB INR 0.9-1.3 High PT INR 2.2 Result Comment: Vitamin K Antagonist (VKA) Therapeutic Range: INR 2 to 3 (Target INR of 2.5) Note: For patients treated with VKA drugs, such as warfarin, the [place] [employer] 2012 Guideline recommends a therapeutic INR range of 2 to 3 (target INR of 2.5). This recommendation includes high-risk patients with antiphospholipid syndrome with previous arterial or venous thromboembolism, current-generation mechanical or bioprosthetic aortic heart valve replacement. Note: Patients with mechanical aortic valve replacement and additional risk factors for thromboembolic events (atrial fibrillation, previous thromboembolism, LV dysfunction, hypercoagulable conditions) or an older generation mechanical AVR (i.e., ball in-Cage) or any mechanical MVR should have a INR therapeutic range of 2.5 to 3.5 (target INR of 3). Shweta GH, et al. Chest 2012, 141:7S-47S Genevieve RA, et al. [facility] 2017, 70: 252-289 Performed By: #### CBCDIF, PT, CMP #### [facility] [address] [place] [address] COMP METABOLIC PANEL Collected: 05/22/2018 Status: F Source: [facility] 6:21 PM [facility] OTHER [facility] REPOSITORY TYPE CODE TESTS RESULT OUT OF REFERENCE UNITS RANGE LAB TP 6.3-8.0 g/dL Protein, High Total 8.9 LAB ALB 3.9-4.9 g/dL Low Albumin 3.2 LAB CA 8.5-10.2 mg/dL Calcium, Total 8.7 LAB TBIL 0.2-1.3 mg/dL Bilirubin, Total 0.5 LAB ALKP 32-117 U/L Alkaline Phosphatase 82 LAB AST 13-35 U/L AST 33 LAB GLU 74-99 mg/dL Glucose 87 Result Comment: The [place] Diabetes Association (ADA) provides guidance for cutoff values for fasting glucose and random glucose. The ADA defines fasting as no caloric intake for at least 8 hours. Fas ting plasma glucose results between 100 to 125 mg/dL indicate increased risk for diabetes (prediabetes). Fasting plasma glucose results greater than or equal to 126 mg/dL meet the criteria for diagnosis of diabetes. In the absence of unequivocal hyperglycemia, results should be confirmed by repeat testing. In a patient with classic symptoms of hyperglycemia or hyperglycemic crisis, random plasma glucose results greater than or equal to 200 mg/dL meet the criteria for diagnosis of diabetes. Reference: Standards of Medical Care in Diabetes 2016, [place] [employer]. Diabetes Care. 2016.39(Suppl 1). LAB BUN 7-21 mg/dL BUN High 36 LAB CRET 0.58-0.96 mg/dL Creatinine High 1.31 LAB NA 136-144 mmol/L Low Sodium 133 LAB K 3.7-5.1 mmol/L Potassium High 5.5 LAB CL 97-105 mmol/L Chloride 98 LAB CO2 22-30 mmol/L CO2 25 LAB AGAP 9-18 mmol/L Anion Gap 10 LAB ALT 7-38 U/L ALT 9 LAB GFRAA eGFR- Amer. 47 LAB GFRNAA . eGFR-All Other Races 39 Result Comment: eGFR (Estimated GFR) Units of measure: mL/min/1.73 meters squared eGFR is derived from the reexpressed MDRD Study equation using the following parameters: serum creatinine, age, gender and race. The creatinine assay has been calibrated to be traceable to IDMS. An eGFR <60 mL/min/1.73m2 for >3 months is consistent with chronic kidney disease. Refer to KDOQI guidelines for clinical interpretation. In patients with unstable renal function, e.g. those with acute kidney injury, the eGFR may not accurately reflect actual GFR. Performed By: #### CBCDIF, PT, CMP #### [facility] [address] [place] [address] NT PRO BNP Collected: 05/22/2018 Status: F Source: [facility] 6:21 PM CLINIC OTHER CAMPUS REPOSITORY TYPE CODE TESTS RESULT OUT OF REFERENCE UNITS RANGE LAB PBNP <450 pg/mL High PRO B Natr 1600 Peptide Performed By: #### NTBNP #### [facility] [address] [place] [address] ED NOTE Observed: 05/22/2018 Status: COMPLETED Source: [facility] 6:01 PM CLINIC OTHER CAMPUS REPOSITORY HNO ID: [id number] Author: Aurelia (Rn) ELENA Simpson Service: (none) Author Type: Registered Nurse Type: ED Notes Filed: 05/22/2018 6:02 PM Note Text: Pt presents with odell leg edema, right lower leg bandage seeping clear fluid. Pt to BR and voided qs. Back to bed, right lower leg bandage changed and redressed, bandage was soaked. Pt's right leg elevated on blankets. ED NOTE Observed: 05/22/2018 Status: COMPLETED Source: [facility] 4:02 PM [facility] REPOSITORY HNO ID: [id number] Author: Nasra ParksRn) ELENA Wan Service: (none) Author Type: Registered Nurse Type: ED Notes Filed: 05/22/2018 4:03 PM Note Text: Patient presents from wound center with increased edema in BLLE, weeping from BLLE wounds. Increased pain in legs and feet. PROGRESS Observed: 05/22/2018 Status: COMPLETED Source: [facility] 3:45 PM [facility] REPOSITORY HNO ID: [id number] Author: Luis Simons Service: (none) Author Type: Nurse Practitioner Type: Progress Notes Filed: 06/02/2018 7:07 AM Note Text: DATE OF VISIT: 05/22/2018 REASON FOR VISIT: Non-healing lower extremity wound. HISTORY OF PRESENT ILLNESS: Rosa Beltran is a 81 year old female who presents to the [facility] for further evaluation and management of a non-healing leg wound. She has a past medical history significant for atrial fibrillation on Coumadin, coronary artery disease,?COPD, hypertension, dyslipidemia and CHF.?Patient has felt mildly short of breath over the past month. ?Increase with exertion and lying flat. She is on 40 mg of Lasix twice a day. She still is urinating appropriately. She has not had any chest pain or palpitations. ?Fever, chills, or sweats. ?No productive cough. ?No wheezing. Upon taking patients vitals, her SPO2 level was from 76% - 85%. Patient stated she had shortness of breath. She was unable to finish her sentences without catching her breath. The tips of her fingers were cyanotic. Patient was sent to the ER for further evaluation. Tiffanie BARBOSA wheeled patient to the ER. INTERVAL HISTORY: Patient was sent tot he ED during her previous visit due to low oxygenation. She is now on 2 L of oxygen at all times. She denies any breathing difficulty at this time. She is an 81 year old white female with a long-standing history of swelling in her lower extremities secondary to lymphedema. Approximately 2 years ago, she sustained a fracture to her right ankle, requiring surgical intervention. The operative site became infected, and required prolonged treatment and eventually a skin graft for complete wound closure. As a result, the patient's ambulatory capacity has been impaired. Furthermore, she is morbidly obese which limits her ambulation. The patient leads a relatively sedentary lifestyle and requires a walker for ambulation. She spends a great part of her day in a sitting position. She sleeps with the head of the bed elevated. Swelling in her lower extremities has been on-going for many years. The patient has undergone a battery of diagnostic tests. A non-invasive lower extremity arterial study in December 2016 reveals normal- ankle brachial indices, bilaterally. Venous doppler examination on 01/14 reveals incompetence of the great saphenous veins, bilaterally. There is also incompetence of the small saphenous veins, bilaterally and the right accessory saphenous vein. At present, she has three wounds, 2 on the right distal leg and the other is on the left posterior calf. The left leg wound has been present for over a year and was managed with silver alginate, NPWT, Santyl, serial sharp wound debridements, compression therapy using Surepress and compression pumps. Patient's wound cultures over the past several months have grown out Enterobacter cloacae, MRSA, coag-staph aureus, and in January grew out Pseudomonas, managed with oral antibiotics. IIn July of this year, she developed a new wound on the right lateral distal leg, then in July, she experience cellulitis of both legs requiring hospitalization. In the last year, she has been followed by Dr. Jaskaran Chance at the [facility]. It was felt that her home support system was inadequate and that she may not have the resources in her home environment to appropriately care for her needs. In this regard, a geriatric social work professor consultation had been recommended on several occassions, but patient apparently insisted on remaining in her home environment despite that there was thought that is may be less than optimal. The patient is here at the [facility] for a second opinion regarding management of the abovementioned bilateral lower extremity wounds. She offers no other complaints. She denies any fevers, chills, wound-related pain or other related symptoms. INTERVAL HISTORY: 05/19/18 Patient presents for a routine follow- up. She was recently admitted to [facility] in 03/2018 with right leg wound infection. Prior cultures have shown polymicrobial sanchez including Pseudomonas, ampicillin-susceptible Enterococcus, Proteus, and MSSA. MRI of the right leg during that hospitalization was negative for osteomyelitis. She was placed on IV antibiotics in the hospital and then discharged on Cipro and amoxicillin to go until 05/05/2018 by mouth. ? Today, she is noted to be extremely somnolent. Both of her lower extremities are significantly swollen and quite weepy. As a result, she has increased skin maceration to both legs and the previously healed wound to the right medial distal leg has reopened. Both wounds have been managed with calcium alginate with Ag. She denies fever or chills and other related symptoms. PAST MEDICAL HISTORY Diagnosis Date - Acquired hypothyroidism - Acute respiratory failure with hypoxia ([facility]) 09/30/2017 - Atrial fibrillation ([facility]) - CAD (coronary artery disease) Dr. Brenda Awan Hts, Promus element KIMMY LAD 11/20/2012, Stress test 04/2014 inferoapical reversible ischemia,small LVEF 48- 50%, LHC 12/2014 L main-normal, LAD widely patent, Cx diffuse mild luminal irregularities with 80%focal stenosis distal, RCA dominant with minimal luminal irregularities. 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 - TOTAL KNEE REPLACEMENT Left 2004 [facility]. MEDICATIONS ergocalciferol, vitamin D2, (DRISDOL) 50,000 unit capsule Take 1 capsule by mouth once each week. levothyroxine (LEVOXYL) 100 mcg tablet Take 1 tablet by mouth once daily. Take on empty stomach. For Thyroid. gabapentin (NEURONTIN) 300 mg capsule Take 1 capsule by mouth twice daily. metoprolol tartrate, short acting, (LOPRESSOR) 50 mg tablet TAKE ONE TABLET BY MOUTH TWICE DAILY furosemide (LASIX) 40 mg tablet Take 1 tablet by mouth twice daily. COMPOUNDED PRESCRIPTION Calcium Alginate 4x4 Dressing, change daily Dx: Blister left leg with infection S80.822A, L08.9; Lymphedema I89.0. Wound dimensions: 4 x 3 cm acetaminophen (TYLENOL) 500 mg tablet Take 1,000 mg by mouth every 8 hours as needed. aspirin, enteric coated (ASPIRIN, ENTERIC COATED) 81 mg EC tablet Take 81 mg by mouth once daily. warfarin (COUMADIN) 1 mg tablet Take 1 mg by mouth daily as directed. Take 1 tablet (1mg) by mouth once daily. Take with 1 x 3mg tablet to total 4mg by mouth once daily. warfarin (COUMADIN) 3 mg tablet Take 3 mg by mouth daily as directed. Take 1 tablet (3mg) by mouth once daily. Take with 1 x 1mg tablet to total 4mg by mouth once daily. lisinopril (ZESTRIL) 2.5 mg tablet Take 2.5 mg by mouth once daily. omeprazole (PRILOSEC) 20 mg capsule Take 20 mg by mouth once daily. spironolactone (ALDACTONE) 25 mg tablet Take 25 mg by mouth once daily. docusate sodium (COLACE) 100 mg capsule Take 100 mg by mouth once daily as needed. therapeutic multivitamin w/ iron (THERAGRAN-M) 9 mg iron-400 mcg tablet Take 1 tablet by mouth once daily. ALLERGIES No Known Allergies FAMILY HISTORY: Patient's father in his 70s with a history of arthritis. Her mother at the age of 90 with a history of arthritis. SOCIAL HISTORY Patient is a , lives alone, but has a son nearby. She has 6 children. Substance Use Topics - Smoking status: Passive Smoke Exposure - Never Smoker - Smokeless tobacco: Never Used Comment: smoked for 40 years - Alcohol use No REVIEW OF SYSTEM: PAIN ASSESSMENT: Negative for pain, history of chronic pain, or current treatment for a chronic pain condition. GENERAL: No weight loss, malaise or fevers HEENT: Negative for frequent or significant headaches, No changes in hearing or vision, no nose bleeds or other nasal problems NECK: Negative for lumps, goiter, pain and significant neck swelling RESPIRATORY: Negative for cough, hemoptysis, wheezing, positive for shortness of breath CARDIOVASCULAR: Negative for chest pain,palpitations; has chronic leg swelling GI: No nausea, vomiting, or diarrhea : No history of dysuria, frequency or incontinence MUSCULOSKELETAL: Negative for joint pain or swelling, back pain or muscle pain SKIN: As per HPI. Negative for any other lesions, rash, and itching PSYCH: Negative for sleep disturbance, mood disorder and recent psychosocial stressors HEMATOLOGY/LYMPHOLOGY: Negative for prolonged bleeding, bruising easily or swollen nodes ENDOCRINE: Negative for cold or heat intolerance, polyuria, polydipsia and goiter NEURO: No history of headaches, syncope, paralysis, seizures or tremors 05/22/18 1545 BP: 130/70 Pulse: 75 Resp: 19 Temp: 36.8 ?C (97.8 ?F) TempSrc: Oral SpO2: 94% Weight: 88.1 kg (194 lb 4.8 oz) PHYSICAL EXAMINATION: HEENT: PERRLA , sclera non-icteric, EOM intact, mucous membrane moist, pink and w/o lesions Comments: Neck: Supple, no bruit, no masses, trachea midline Comments: Chest: Lungs clear to auscultation, no accessory muscle use for respiration Comments: Heart: Regular rate/rhythm, normal S1,S2, no murmur, rubs or gallops Comments: Abdomen: Soft, non-tender, non-distended, + bowel sounds, no bruit, no organomegaly Comments: Extremity: Dorsalis pedis : Present (Y) Absent Diminished Doppler Posterior Tibialis: Present (Y) Absent Diminished Doppler Capillary Refill: < 3 sec. (Y) > 3 sec. ABIs: Right Left Rubor of Dependency: Negative (Y) Positive (N) [place]if[place]-Weistein Examination: Comments: +3 edema BLEs Measurements: Right Calf: 60 cm Right Ankle: 34.5 cm Left Calf: 54 cm Left Ankle: 37 cm Neuro: Alert AND oriented x3, AUTOMOTIVE SALES REPRESENTATIVE II-XII grossly intact, reflexes 2+ and symmetric, UE/LE 5/5 Comments: Skin: No rashes, no abnormal skin lesions Comments: See wound assessment Most recent diagnostic/laboratory data: 10/14/17 Hemoglobin A1C = 5.8 ?? 10/14/17 WBC 8.4, Hgb 12.2, Hct 38.5, PLT 211, Glu 91, BUN 24, Cr 0.88, Na 136, K 4.7, Cl 100, Albumin 3.6, Total protein 9.1 11/04/17 Venous Doppler Study Bilateral Lower Extremities IMPRESSION RIGHT SIDE - DEEP VEINS Negative for acute deep vein thrombosis in vessels visualized. Positive for valvular incompetency in the common femoral vein and femoral vein. Lymph node noted, within the groin, measuring 2.75 x 2.71 x .809cm. Cystic structure noted, within the popliteal fossa, measuring 2.17 x 2.67 x 1.49cm. ? RIGHT SIDE - SUPERFICIAL VEINS Positive for valvular incompetency in the great saphenous vein. REFLUX ONLY NOTED AT PROXIMAL THIGH. Vessel becomes tortuous branching from proximal to distal calf. The anterior lateral branch is negative for incompetency. Positive for valvular incompetency in the small saphenous vein. REFLUX ONLY NOTED AT DISTAL CALF. LEFT SIDE - DEEP VEINS Negative for acute deep vein thrombosis in vessels visualized. Positive for valvular incompetency in the femoral vein at the mid thigh. LEFT SIDE - SUPERFICIAL VEINS Positive for valvular incompetency in the great saphenous vein. REFLUX ONLY NOTED AT MID CALF. Negative for valvular incompetency in the small saphenous vein. No previous scans for comparison; however, chronic appearing superficial thrombophlebitis in the great saphenous vein at the distal calf. ? Technologist: Cleo HOBBST Ordering physician: Luis Simons ? Interpreting physician: Vishal Torres MD, RVT ? 01/24/17 Segmental arterial doppler study bilateral lower extremities Findings: NIMISHA 1.04 to the right and 1.0 to the left. Based upon the findings of this resting non-invasive lower extremity arterial study, arterial perfusion to ankle level appears to be relatively normal bilaterally. Triphasic and biphasic waveforms were noted at ankle level bilaterally. Resting ankle-brachial indices were bilaterally normal. ? 08/01/17 X-Ray 3-View Right Ankle Impression: There is prior open reduction internal fixation of the fibula which appears to be relatively intact allowing for advanced bony osteopenia. There is an irregular appearance of the lateral side distal tibia which is compatible with a prior fracture for which a new fracture on the lateral side is not excluded. The fracture could be potentially be associated with new trauma or potentially infection. Recommend consideration for follow-up study such as MRI or potentially three-phase bone scan. ? Flattened appearance of the arch of the foot with degenerative change of the tarsotarsal joints. ? Diffuse soft tissue swelling. ? Electronically Signed: Kelly Camarena MD at 20:15 EDT Tel , Service support , ? 10/14/17 XR 2 View Tib/Fib (Left) Findings: Left tibia-fibula: Tibial component of the joint prosthesis noted without associated abnormal lucency. No acute fracture or bony destruction. Right tibia and fibula: Plate and screw fixation remote distal fibular fracture. There is also remote tibial fracture with residual posterior angulation. Ghost tracks from previous tibial hardware. Tibial component of the joint prosthesis noted without associated abnormal lucency. No acute fracture or bony destruction. ? Stereotype Finisher: DWIGHT ? Transcribe Date/Time: Oct 14 2017 ?4:02P Dictated by : ZURDO SANTOS MD ? 10/14/17 XR 2 View Tib/Fib (Right) Findings: Left tibia-fibula: Tibial component of the joint prosthesis noted without associated abnormal lucency. No acute fracture or bony destruction. Right tibia and fibula: Plate and screw fixation remote distal fibular fracture. There is also remote tibial fracture with residual posterior angulation. Ghost tracks from previous tibial hardware. Tibial component of the joint prosthesis noted without associated abnormal lucency. No acute fracture or bony destruction. ? Stereotype Finisher: PSCB ? Transcribe Date/Time: Oct 14 2017 ?4:02P Dictated by : ZURDO SANTOS MD ? 10/14/17 XR 2 View Tib/Fib (Left) Findings: Left tibia-fibula: Tibial component of the joint prosthesis noted without associated abnormal lucency. No acute fracture or bony destruction. Right tibia and fibula: Plate and screw fixation remote distal fibular fracture. There is also remote tibial fracture with residual posterior angulation. Ghost tracks from previous tibial hardware. Tibial component of the joint prosthesis noted without associated abnormal lucency. No acute fracture or bony destruction. WOUND ASSESSMENT: Wound Number: 1 First Assessed Date: 10/14/17 Pre-existing: YES Location: Leg Orientation: Right, Lateral and Distal Wound Etiology: Venous Depth of Tissue Injury (Non-pressure): Full Thickness Diabetic Wounds:N/A Pressure Injury: N/A Pre-debridement Measurements Initial (First Visit): 3.5 cm length x 4.0 cm width x 0.5 cm depth Pre-debridement Measurements Initial (Current Visit): 8.7 cm length x 12.8 cm width x 0.5 cm depth Post Debridement Measurement (Current): N/A % Healing Rate/#Weeks: - 7.9 % -- Week 31 Wound Bed (Post-debridement): 100% red % of Healthy tissue: Undermining: No Tunneling: No Tendon/bone exposed: NO Wound Edge/Margins: Irregular wound edges and Edge attached to base, macerated Periwound Tissue: Mild erythema, Wet (macerated), and significant edema with weeping Exudate Amount:Moderate Consistency:Serous Odor:Minimal Infection/Critical Colonization: None Localized s/s: Non-healing and Increased exudate Systemic s/s: None Local/systemic Rx: None Wound Healing Status: Chronic Clinically presenting as: Stalled wound healing Current topical treatment: calcium alginate with Ag Wound Number: 2 First Assessed Date: 10/14/17 Pre-existing: YES Location: Leg Orientation: Right, Medial and Distal Wound Etiology: Surgical Depth of Tissue Injury (Non-pressure): Partial Thickness Diabetic Wounds:N/A Pressure Injury: N/A Pre-Measurements Initial (First Visit): 0.5 cm length x 0.4 cm width x 0.1 cm depth Post Measurement (Current): Epithelialized % Healing Rate/#Weeks: Week 1 -- Healed Wound Bed (Post-debridement): % of Healthy tissue: Undermining: No Tunneling: No Tendon/bone exposed: NO Wound Edge/Margins: Normal, intact, Irregular wound edges and Edge attached to base Periwound Tissue: Normal, intact,uninvolved tissue and Dry,flaky Exudate Amount: None Consistency: None Odor:None Infection/Critical Colonization Localized s/s: None and Edema Systemic s/s: None Local/systemic Rx: None Wound Healing Status: Chronic Clinically presenting as: Healed Current topical treatment: Iodoflex Wound Number: 4 First Assessed Date: 03/08/18 Pre-existing: YES Location: Leg (calf) Orientation: Right anterior ace Wound Etiology: Venous Depth of Tissue Injury (Non-pressure): Full Thickness Diabetic Wounds:N/A Pressure Injury: N/A Pre-Measurements Initial (First Visit): 2.0 cm length x 2.5 cm width x 0.1 cm depth Post Measurement (Current): Epithelialized % Healing Rate/#Weeks: Healed Wound Bed (Post-debridement): N/A % of Healthy tissue: Undermining: No Tunneling: No Tendon/bone exposed: NO Wound Edge/Margins: Well-defined wound edges and Edge attached to base Periwound Tissue: [employer], dry and intact, No fluctuance, induration or advancing soft tissue necrosis or ischemia Exudate: None Consistency: None Odor:None Infection/Critical Colonization: N/A Localized s/s: None Systemic s/s: None Local/systemic Rx: None Wound Healing Status: Stable Clinically presenting as: Wound closed Current topical treatment: Zinc oxide Wound Number: 5 First Assessed Date: 03/08/18 Pre-existing: YES Location: Foot Orientation: Right lateral Wound Etiology: Venous Depth of Tissue Injury (Non-pressure): Full Thickness Diabetic Wounds:N/A Pressure Injury: N/A Pre-Measurements Initial (First Visit): 1.5 cm length x 1.0 cm width x 0.1 cm depth Post Measurement (Current): Epithelialized % Healing Rate/#Weeks: Healed Wound Bed (Post-debridement): N/A % of Healthy tissue: Undermining: No Tunneling: No Tendon/bone exposed: NO Wound Edge/Margins: Well-defined wound edges and Edge attached to base Periwound Tissue: [employer], dry and intact, No fluctuance, induration or advancing soft tissue necrosis or ischemia Exudate: None Consistency: None Odor:None Infection/Critical Colonization: N/A Localized s/s: None Systemic s/s: None Local/systemic Rx: None Wound Healing Status: Stable Clinically presenting as: Closed wound Current topical treatment: Zinc oxide paste Wound Number: 3 First Assessed Date: 10/14/17 Pre-existing: YES Location: Leg (calf) Orientation: Left and Posterior Wound Etiology: Venous Depth of Tissue Injury (Non-pressure): Full Thickness Diabetic Wounds:N/A Pressure Injury: N/A Pre-Measurements Initial (First Visit): 1.3 cm length x 1.2 cm width x 0.1 cm depth Post Measurement (Current): Epithelialized % Healing Rate/#Weeks: 100 % -- Week 5 Wound Bed (Post-debridement): 100% [employer] % of Healthy tissue: Undermining: No Tunneling: No Tendon/bone exposed: NO Wound Edge/Margins: Well-defined wound edges and Edge attached to base Periwound Tissue: [employer], dry and intact, No fluctuance, induration or advancing soft tissue necrosis or ischemia Exudate: Nonr Consistency: None Odor:None Infection/Critical Colonization: N/A Localized s/s: None Systemic s/s: None Local/systemic Rx: None Wound Healing Status: Chronic Clinically presenting as: Healed Current topical treatment: Collagen Wound Number: 6 First Assessed Date: 05/19/18 Pre-existing: YES Location: Leg Orientation: Right, Medial and Distal Wound Etiology: Venous Depth of Tissue Injury (Non-pressure): Full Thickness Diabetic Wounds:N/A Pressure Injury: N/A Pre-debridement Measurements Initial (First Visit): 4.2 cm length x 4.8 cm width x 1.3 cm depth Pre-debridement Measurements Initial (Current Visit): New Wound Post Debridement Measurement (Current): N/A % Healing Rate/#Weeks: N/A Wound Bed (Post-debridement): N/A % of Healthy tissue: Undermining: No Tunneling: No Tendon/bone exposed: NO Wound Edge/Margins: Irregular wound edges and Edge attached to base, macerated Periwound Tissue: Mild erythema, Wet (macerated), and significant edema with weeping Exudate Amount:Moderate Consistency:Serous Odor:Minimal Infection/Critical Colonization: None Localized s/s: Non-healing and Increased exudate Systemic s/s: None Local/systemic Rx: None Wound Healing Status: Chronic Clinically presenting as: Stalled wound healing Current topical treatment: calcium alginate with Ag IMPRESSION: 1. Non-healing right and left lower extremity wounds ( #1 and #3) in the setting of chronic venous insufficiency with secondary lymphedema. 2. Recurrent right medial leg wound s/p STSG in the setting of chronic edema secondary to CVI. 3. Significant lower extremity edema secondary to underlying chronic venous insufficiency with secondary lymphedema. 4. Multiple risk factors or co-morbidities that may contribute to wound healing difficulties include hypothyroid disease, chronic atrial fibrillation on anticoagulation, coronary artery disease, COPD, dyslipidemia, hypertension, muscle weakness, osteoarthritis, GERD, depression and obesity. 5. Wound cultures positive for Enterobacter cloacae and Staph aureus most likely increased colonization. 6. Very good glucose control based on recent HgbA1c. 7. Zinc insufficiency ( precursor for collagen synthesis. 8. No significant arterial disease based on recent PVRs. 9. No evidence of osteomyelitis based on recent XRs. 10. Valvular incompetency involving the right common femoral vein , right femoral vein, right great saphenous vein, left femoral vein (mid thigh) and left great saphenous vein (mid thigh). TREATMENT PLAN: Debridement Type: Autolytic Enzymatic Mechanical Surgical Sharp (N) Other: Wound Dressing: See Nursing Notes for details. . Topical Rx: 1. Right posterior-lateral distal leg: Wounds washed with saline solution x 10 cc. Pat dry. Calcium Alginate AG applied to the wound bed. Dry max and abd pads applied followed by Kerlix. 2 tape to secure . 2. Right medial distal leg: Wounds washed with saline solution x 10 cc. Pat dry. Calcium Alginate AG applied to the wound bed. Dry max and abd pads applied followed by Kerlix. 2 tape to secure . 3. Right lateral sole: Remains closed. 6x6 triact foam applied to protect heal. Systemis Rx: None CirAids to be ordered for maintenance therapy. Use pneumatic compression pumps twice daily with 40-50 mmhg compression Nutritional Support: MVI, Zinc Supplement and Protein Supplement Patient is instructed to continue a healthy, well-balanced diet for nutritional support for optimal healing. Protein is the most important nutrient for wound healing. Eating adequate amounts of protein allows the body to create new cells and chemicals to heal the wound, and increases the body?s ability to fight infection. Eating high protein foods daily is recommended such as: lean meats, fish, poultry, cheese, milk, yogurt, eggs and legumes. Vitamins and minerals provide a full range of nutrients for wound healing. It can help jump start the body's production of cells and chemicals needed for healing. Vitamins and minerals can be obtained through healthy foods in your diet and by taking a multiple vitamin supplement. Vitamin C is essential for collagen synthesis. Collagen and fibroblasts compose the basis for the structure of a new wound bed. Also, a deficiency of Vitamin C prolongs the healing time and contributes to reduced resistance to infection. Laboratory: We will obtain wound cultures to determine bacterial load. She will be treated accordingly. Wound cultures are collected to assess level of bacterial bio-burden. Excessive bio-burden can result in inflammatory and proliferative phase stagnation as well as compromise of normal wound healing physiology. Bacterial proliferation, biofilm production, critical colonization and the development of resistant organism can lead to wound infection, wound deterioration and devastating tissue loss. Knowing the organism that populated the wound can help direct therapy, particularly anti-microbial dressing choices. Vascular Evaluation: PVRs for both lower extremities to evaluate for arterial insufficiency completed. Pt advised to see Dr. Tavo Mcnair of Vascular Surgery for further evaluation given her underlying PVD to help with wound healing. Follow-up to be determined - call to schedule appointment depending on if she goes into the hospital. Given that the patient is extremely somnolent and her lower extremities are significantly swollen and weeping, she needs further evaluation and is now being transferred via wheelchair to the ED by our RN. Luis Simons CNP Charge Capture: [id number] CNOV Observed: 05/22/2018 Status: COMPLETED Source: [facility] 3:45 PM CLINIC OTHER CAMPUS REPOSITORY Office Visit ([facility]) ROSA BELTRAN ([id number]) 1935 F Date Time Provider Department 05/22/18 3:45 PM LUIS SIMONS, (GROUND SYSTEMS ENGINEER) [facility] During your visit today, we recorded the following information about you: Temperature Pulse Respiration Blood pressure 98.2 degrees 71/minute 18/minute 146/67 Luis Simons APRN.LOI 06/02/2018 7:07 AM Signed DATE OF VISIT: 05/22/2018 REASON FOR VISIT: Non-healing lower extremity wound. HISTORY OF PRESENT ILLNESS: Rosa Beltran is a 81 year old female who presents to the [facility] for further evaluation and management of a non-healing leg wound. She has a past medical history significant for atrial fibrillation on Coumadin, coronary artery disease,?COPD, hypertension, dyslipidemia and CHF.?Patient has felt mildly short of breath over the past month. ?Increase with exertion and lying flat. She is on 40 mg of Lasix twice a day. She still is urinating appropriately. She has not had any chest pain or palpitations. ?Fever, chills, or sweats. ?No productive cough. ?No wheezing. Upon taking patients vitals, her SPO2 level was from 76% - 85%. Patient stated she had shortness of breath. She was unable to finish her sentences without catching her breath. The tips of her fingers were cyanotic. Patient was sent to the ER for further evaluation. Tiffanie BARBOSA wheeled patient to the ER. INTERVAL HISTORY: Patient was sent tot he ED during her previous visit due to low oxygenation. She is now on 2 L of oxygen at all times. She denies any breathing difficulty at this time. She is an 81 year old white female with a long-standing history of swelling in her lower extremities secondary to lymphedema. Approximately 2 years ago, she sustained a fracture to her right ankle, requiring surgical intervention. The operative site became infected, and required prolonged treatment and eventually a skin graft for complete wound closure. As a result, the patient's ambulatory capacity has been impaired. Furthermore, she is morbidly obese which limits her ambulation. The patient leads a relatively sedentary lifestyle and requires a walker for ambulation. She spends a great part of her day in a sitting position. She sleeps with the head of the bed elevated. Swelling in her lower extremities has been on-going for many years. The patient has undergone a battery of diagnostic tests. A non-invasive lower extremity arterial study in December 2016 reveals normal-ankle brachial indices, bilaterally. Venous doppler examination on 01/14 reveals incompetence of the great saphenous veins, bilaterally. There is also incompetence of the small saphenous veins, bilaterally and the right accessory saphenous vein. At present, she has three wounds, 2 on the right distal leg and the other is on the left posterior calf. The left leg wound has been present for over a year and was managed with silver alginate, NPWT, Santyl, serial sharp wound debridements, compression therapy using Surepress and compression pumps. Patient's wound cultures over the past several months have grown out Enterobacter cloacae, MRSA, coag-staph aureus, and in January grew out Pseudomonas, managed with oral antibiotics. IIn July of this year, she developed a new wound on the right lateral distal leg, then in July, she experience cellulitis of both legs requiring hospitalization. In the last year, she has been followed by Dr. Jaskaran Chance at the [facility]. It was felt that her home support system was inadequate and that she may not have the resources in her home environment to appropriately care for her needs. In this regard, a geriatric social work professor consultation had been recommended on several occassions, but patient apparently insisted on remaining in her home environment despite that there was thought that is may be less than optimal. The patient is here at the [facility] for a second opinion regarding management of the abovementioned bilateral lower extremity wounds. She offers no other complaints. She denies any fevers, chills, wound-related pain or other related symptoms. INTERVAL HISTORY: 05/19/18 Patient presents for a routine follow- up. She was recently admitted to [facility] in 03/2018 with right leg wound infection. Prior cultures have shown polymicrobial sanchez including Pseudomonas, ampicillin-susceptible Enterococcus, Proteus, and MSSA. MRI of the right leg during that hospitalization was negative for osteomyelitis. She was placed on IV antibiotics in the hospital and then discharged on Cipro and amoxicillin to go until 05/05/2018 by mouth. ? Today, she is noted to be extremely somnolent. Both of her lower extremities are significantly swollen and quite weepy. As a result, she has increased skin maceration to both legs and the previously healed wound to the right medial distal leg has reopened. Both wounds have been managed with calcium alginate with Ag. She denies fever or chills and other related symptoms. PAST MEDICAL HISTORY Diagnosis Date - Acquired hypothyroidism - Acute respiratory failure with hypoxia (HCC) 09/30/2017 - Atrial fibrillation ([facility]) - CAD (coronary artery disease) Dr. Brenda Awan Hts, Promus element KIMMY LAD 11/20/2012, Stress test 04/2014 inferoapical reversible ischemia,small LVEF 48-50%, LHC 12/2014 L main-normal, LAD widely patent, Cx diffuse mild luminal irregularities with 80%focal stenosis distal, RCA dominant with minimal luminal irregularities. 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 - Pure hypercholesterolemia - Rheumatoid arthritis ([facility]) 2007 - Sleep apnea - Stented coronary artery 12/29/2016 PAST SURGICAL HISTORY Procedure Laterality Date - CC CORONARY STENT 11/20/2012 KIMMY LAD - CC CORONARY STENT 12/20/2014 KIMMY, Cfx - SECTION HX - COLONOSCOPY 06/10/2017 [facility], Nonspecific cecal ulcer - GASTRIC BYPASS HX 1986 - HERNIA REPAIR HX 1987; 1989 - PAST SURGICAL HISTORY OF Right 09/2015 right tibia fracture ORIF - PAST SURGICAL HISTORY OF Right 01/20/2016 Removal of hardware, right tibia - TOTAL KNEE REPLACEMENT Right 2003 [facility]. - TOTAL KNEE REPLACEMENT Left 2004 [facility]. MEDICATIONS ergocalciferol, vitamin D2, (DRISDOL) 50,000 unit capsule Take 1 capsule by mouth once each week. levothyroxine (LEVOXYL) 100 mcg tablet Take 1 tablet by mouth once daily. Take on empty stomach. For Thyroid. gabapentin (NEURONTIN) 300 mg capsule Take 1 capsule by mouth twice daily. metoprolol tartrate, short acting, (LOPRESSOR) 50 mg tablet TAKE ONE TABLET BY MOUTH TWICE DAILY furosemide (LASIX) 40 mg tablet Take 1 tablet by mouth twice daily. COMPOUNDED PRESCRIPTION Calcium Alginate 4x4 Dressing, change daily Dx: Blister left leg with infection S80.822A, L08.9; Lymphedema I89.0. Wound dimensions: 4 x 3 cm acetaminophen (TYLENOL) 500 mg tablet Take 1,000 mg by mouth every 8 hours as needed. aspirin, enteric coated (ASPIRIN, ENTERIC COATED) 81 mg EC tablet Take 81 mg by mouth once daily. warfarin (COUMADIN) 1 mg tablet Take 1 mg by mouth daily as directed. Take 1 tablet (1mg) by mouth once daily. Take with 1 x 3mg tablet to total 4mg by mouth once daily. warfarin (COUMADIN) 3 mg tablet Take 3 mg by mouth daily as directed. Take 1 tablet (3mg) by mouth once daily. Take with 1 x 1mg tablet to total 4mg by mouth once daily. lisinopril (ZESTRIL) 2.5 mg tablet Take 2.5 mg by mouth once daily. omeprazole (PRILOSEC) 20 mg capsule Take 20 mg by mouth once daily. spironolactone (ALDACTONE) 25 mg tablet Take 25 mg by mouth once daily. docusate sodium (COLACE) 100 mg capsule Take 100 mg by mouth once daily as needed. therapeutic multivitamin w/ iron (THERAGRAN-M) 9 mg iron-400 mcg tablet Take 1 tablet by mouth once daily. ALLERGIES No Known Allergies FAMILY HISTORY: Patient's father in his 70s with a history of arthritis. Her mother at the age of 90 with a history of arthritis. SOCIAL HISTORY Patient is a , lives alone, but has a son nearby. She has 6 children. Substance Use Topics - Smoking status: Passive Smoke Exposure - Never Smoker - Smokeless tobacco: Never Used Comment: smoked for 40 years - Alcohol use No REVIEW OF SYSTEM: PAIN ASSESSMENT: Negative for pain, history of chronic pain, or current treatment for a chronic pain condition. GENERAL: No weight loss, malaise or fevers HEENT: Negative for frequent or significant headaches, No changes in hearing or vision, no nose bleeds or other nasal problems NECK: Negative for lumps, goiter, pain and significant neck swelling RESPIRATORY: Negative for cough, hemoptysis, wheezing, positive for shortness of breath CARDIOVASCULAR: Negative for chest pain,palpitations; has chronic leg swelling GI: No nausea, vomiting, or diarrhea : No history of dysuria, frequency or incontinence MUSCULOSKELETAL: Negative for joint pain or swelling, back pain or muscle pain SKIN: As per HPI. Negative for any other lesions, rash, and itching PSYCH: Negative for sleep disturbance, mood disorder and recent psychosocial stressors HEMATOLOGY/LYMPHOLOGY: Negative for prolonged bleeding, bruising easily or swollen nodes ENDOCRINE: Negative for cold or heat intolerance, polyuria, polydipsia and goiter NEURO: No history of headaches, syncope, paralysis, seizures or tremors 05/22/18 1545 BP: 130/70 Pulse: 75 Resp: 19 Temp: 36.8 ?C (97.8 ?F) TempSrc: Oral SpO2: 94% Weight: 88.1 kg (194 lb 4.8 oz) PHYSICAL EXAMINATION: HEENT: PERRLA , sclera non-icteric, EOM intact, mucous membrane moist, pink and w/o lesions Comments: Neck: Supple, no bruit, no masses, trachea midline Comments: Chest: Lungs clear to auscultation, no accessory muscle use for respiration Comments: Heart: Regular rate/rhythm, normal S1,S2, no murmur, rubs or gallops Comments: Abdomen: Soft, non-tender, non-distended, + bowel sounds, no bruit, no organomegaly Comments: Extremity: Dorsalis pedis : Present (Y) Absent Diminished Doppler Posterior Tibialis: Present (Y) Absent Diminished Doppler Capillary Refill: < 3 sec. (Y) > 3 sec. ABIs: Right Left Rubor of Dependency: Negative (Y) Positive (N) [place] Examination: Comments: +3 edema BLEs Measurements: Right Calf: 60 cm Right Ankle: 34.5 cm Left Calf: 54 cm Left Ankle: 37 cm Neuro: Alert AND oriented x3, [employer] II-XII grossly intact, reflexes 2+ and symmetric, UE/LE 5/5 Comments: Skin: No rashes, no abnormal skin lesions Comments: See wound assessment Most recent diagnostic/laboratory data: 10/14/17 Hemoglobin A1C = 5.8 ?? 10/14/17 WBC 8.4, Hgb 12.2, Hct 38.5, PLT 211, Glu 91, BUN 24, Cr 0.88, Na 136, K 4.7, Cl 100, Albumin 3.6, Total protein 9.1 11/04/17 Venous Doppler Study Bilateral Lower Extremities IMPRESSION RIGHT SIDE - DEEP VEINS Negative for acute deep vein thrombosis in vessels visualized. Positive for valvular incompetency in the common femoral vein and femoral vein. Lymph node noted, within the groin, measuring 2.75 x 2.71 x .809cm. Cystic structure noted, within the popliteal fossa, measuring 2.17 x 2.67 x 1.49cm. ? RIGHT SIDE - SUPERFICIAL VEINS Positive for valvular incompetency in the great saphenous vein. REFLUX ONLY NOTED AT PROXIMAL THIGH. Vessel becomes tortuous branching from proximal to distal calf. The anterior lateral branch is negative for incompetency. Positive for valvular incompetency in the small saphenous vein. REFLUX ONLY NOTED AT DISTAL CALF. LEFT SIDE - DEEP VEINS Negative for acute deep vein thrombosis in vessels visualized. Positive for valvular incompetency in the femoral vein at the mid thigh. LEFT SIDE - SUPERFICIAL VEINS Positive for valvular incompetency in the great saphenous vein. REFLUX ONLY NOTED AT MID CALF. Negative for valvular incompetency in the small saphenous vein. No previous scans for comparison; however, chronic appearing superficial thrombophlebitis in the great saphenous vein at the distal calf. ? Technologist: Cleo Magdaleno RVT Ordering physician: Luis Simons ? Interpreting physician: Vishal Torres MD, RVT ? 01/24/17 Segmental arterial doppler study bilateral lower extremities Findings: NIMISHA 1.04 to the right and 1.0 to the left. Based upon the findings of this resting non-invasive lower extremity arterial study, arterial perfusion to ankle level appears to be relatively normal bilaterally. Triphasic and biphasic waveforms were noted at ankle level bilaterally. Resting ankle- brachial indices were bilaterally normal. ? 08/01/17 X-Ray 3-View Right Ankle Impression: There is prior open reduction internal fixation of the fibula which appears to be relatively intact allowing for advanced bony osteopenia. There is an irregular appearance of the lateral side distal tibia which is compatible with a prior fracture for which a new fracture on the lateral side is not excluded. The fracture could be potentially be associated with new trauma or potentially infection. Recommend consideration for follow- up study such as MRI or potentially three-phase bone scan. ? Flattened appearance of the arch of the foot with degenerative change of the tarsotarsal joints. ? Diffuse soft tissue swelling. ? Electronically Signed: Kelly Camarena MD at 20:15 EDT Tel , Service support , ? 10/14/17 XR 2 View Tib/Fib (Left) Findings: Left tibia-fibula: Tibial component of the joint prosthesis noted without associated abnormal lucency. No acute fracture or bony destruction. Right tibia and fibula: Plate and screw fixation remote distal fibular fracture. There is also remote tibial fracture with residual posterior angulation. Ghost tracks from previous tibial hardware. Tibial component of the joint prosthesis noted without associated abnormal lucency. No acute fracture or bony destruction. ? Stereotype Finisher: DWIGHT ? Transcribe Date/Time: Oct 14 2017 ?4:02P Dictated by : ZURDO SANTOS MD ? 10/14/17 XR 2 View Tib/Fib (Right) Findings: Left tibia-fibula: Tibial component of the joint prosthesis noted without associated abnormal lucency. No acute fracture or bony destruction. Right tibia and fibula: Plate and screw fixation remote distal fibular fracture. There is also remote tibial fracture with residual posterior angulation. Ghost tracks from previous tibial hardware. Tibial component of the joint prosthesis noted without associated abnormal lucency. No acute fracture or bony destruction. ? Stereotype Finisher: DWIGHT ? Transcribe Date/Time: Oct 14 2017 ?4:02P Dictated by : ZURDO SANTOS MD ? 10/14/17 XR 2 View Tib/Fib (Left) Findings: Left tibia-fibula: Tibial component of the joint prosthesis noted without associated abnormal lucency. No acute fracture or bony destruction. Right tibia and fibula: Plate and screw fixation remote distal fibular fracture. There is also remote tibial fracture with residual posterior angulation. Ghost tracks from previous tibial hardware. Tibial component of the joint prosthesis noted without associated abnormal lucency. No acute fracture or bony destruction. WOUND ASSESSMENT: Wound Number: 1 First Assessed Date: 10/14/17 Pre-existing: YES Location: Leg Orientation: Right, Lateral and Distal Wound Etiology: Venous Depth of Tissue Injury (Non-pressure): Full Thickness Diabetic Wounds:N/A Pressure Injury: N/A Pre-debridement Measurements Initial (First Visit): 3.5 cm length x 4.0 cm width x 0.5 cm depth Pre-debridement Measurements Initial (Current Visit): 8.7 cm length x 12.8 cm width x 0.5 cm depth Post Debridement Measurement (Current): N/A % Healing Rate/#Weeks: - 7.9 % -- Week 31 Wound Bed (Post-debridement): 100% red % of Healthy tissue: Undermining: No Tunneling: No Tendon/bone exposed: NO Wound Edge/Margins: Irregular wound edges and Edge attached to base, macerated Periwound Tissue: Mild erythema, Wet (macerated), and significant edema with weeping Exudate Amount:Moderate Consistency:Serous Odor:Minimal Infection/Critical Colonization: None Localized s/s: Non-healing and Increased exudate Systemic s/s: None Local/systemic Rx: None Wound Healing Status: Chronic Clinically presenting as: Stalled wound healing Current topical treatment: calcium alginate with Ag Wound Number: 2 First Assessed Date: 10/14/17 Pre-existing: YES Location: Leg Orientation: Right, Medial and Distal Wound Etiology: Surgical Depth of Tissue Injury (Non-pressure): Partial Thickness Diabetic Wounds:N/A Pressure Injury: N/A Pre-Measurements Initial (First Visit): 0.5 cm length x 0.4 cm width x 0.1 cm depth Post Measurement (Current): Epithelialized % Healing Rate/#Weeks: Week 1 -- Healed Wound Bed (Post-debridement): % of Healthy tissue: Undermining: No Tunneling: No Tendon/bone exposed: NO Wound Edge/Margins: Normal, intact, Irregular wound edges and Edge attached to base Periwound Tissue: Normal, intact,uninvolved tissue and Dry,flaky Exudate Amount: None Consistency: None Odor:None Infection/Critical Colonization Localized s/s: None and Edema Systemic s/s: None Local/systemic Rx: None Wound Healing Status: Chronic Clinically presenting as: Healed Current topical treatment: Iodoflex Wound Number: 4 First Assessed Date: 03/08/18 Pre-existing: YES Location: Leg (calf) Orientation: Right anterior ace Wound Etiology: Venous Depth of Tissue Injury (Non-pressure): Full Thickness Diabetic Wounds:N/A Pressure Injury: N/A Pre-Measurements Initial (First Visit): 2.0 cm length x 2.5 cm width x 0.1 cm depth Post Measurement (Current): Epithelialized % Healing Rate/#Weeks: Healed Wound Bed (Post-debridement): N/A % of Healthy tissue: Undermining: No Tunneling: No Tendon/bone exposed: NO Wound Edge/Margins: Well-defined wound edges and Edge attached to base Periwound Tissue: [employer], dry and intact, No fluctuance, induration or advancing soft tissue necrosis or ischemia Exudate: None Consistency: None Odor:None Infection/Critical Colonization: N/A Localized s/s: None Systemic s/s: None Local/systemic Rx: None Wound Healing Status: Stable Clinically presenting as: Wound closed Current topical treatment: Zinc oxide Wound Number: 5 First Assessed Date: 03/08/18 Pre-existing: YES Location: Foot Orientation: Right lateral Wound Etiology: Venous Depth of Tissue Injury (Non-pressure): Full Thickness Diabetic Wounds:N/A Pressure Injury: N/A Pre-Measurements Initial (First Visit): 1.5 cm length x 1.0 cm width x 0.1 cm depth Post Measurement (Current): Epithelialized % Healing Rate/#Weeks: Healed Wound Bed (Post-debridement): N/A % of Healthy tissue: Undermining: No Tunneling: No Tendon/bone exposed: NO Wound Edge/Margins: Well-defined wound edges and Edge attached to base Periwound Tissue: [employer], dry and intact, No fluctuance, induration or advancing soft tissue necrosis or ischemia Exudate: None Consistency: None Odor:None Infection/Critical Colonization: N/A Localized s/s: None Systemic s/s: None Local/systemic Rx: None Wound Healing Status: Stable Clinically presenting as: Closed wound Current topical treatment: Zinc oxide paste Wound Number: 3 First Assessed Date: 10/14/17 Pre-existing: YES Location: Leg (calf) Orientation: Left and Posterior Wound Etiology: Venous Depth of Tissue Injury (Non-pressure): Full Thickness Diabetic Wounds:N/A Pressure Injury: N/A Pre-Measurements Initial (First Visit): 1.3 cm length x 1.2 cm width x 0.1 cm depth Post Measurement (Current): Epithelialized % Healing Rate/#Weeks: 100 % -- Week 5 Wound Bed (Post-debridement): 100% [employer] % of Healthy tissue: Undermining: No Tunneling: No Tendon/bone exposed: NO Wound Edge/Margins: Well-defined wound edges and Edge attached to base Periwound Tissue: [employer], dry and intact, No fluctuance, induration or advancing soft tissue necrosis or ischemia Exudate: Nonr Consistency: None Odor:None Infection/Critical Colonization: N/A Localized s/s: None Systemic s/s: None Local/systemic Rx: None Wound Healing Status: Chronic Clinically presenting as: Healed Current topical treatment: Collagen Wound Number: 6 First Assessed Date: 05/19/18 Pre-existing: YES Location: Leg Orientation: Right, Medial and Distal Wound Etiology: Venous Depth of Tissue Injury (Non-pressure): Full Thickness Diabetic Wounds:N/A Pressure Injury: N/A Pre-debridement Measurements Initial (First Visit): 4.2 cm length x 4.8 cm width x 1.3 cm depth Pre-debridement Measurements Initial (Current Visit): New Wound Post Debridement Measurement (Current): N/A % Healing Rate/#Weeks: N/A Wound Bed (Post-debridement): N/A % of Healthy tissue: Undermining: No Tunneling: No Tendon/bone exposed: NO Wound Edge/Margins: Irregular wound edges and Edge attached to base, macerated Periwound Tissue: Mild erythema, Wet (macerated), and significant edema with weeping Exudate Amount:Moderate Consistency:Serous Odor:Minimal Infection/Critical Colonization: None Localized s/s: Non-healing and Increased exudate Systemic s/s: None Local/systemic Rx: None Wound Healing Status: Chronic Clinically presenting as: Stalled wound healing Current topical treatment: calcium alginate with Ag IMPRESSION: 1. Non-healing right and left lower extremity wounds ( #1 and #3) in the setting of chronic venous insufficiency with secondary lymphedema. 2. Recurrent right medial leg wound s/p STSG in the setting of chronic edema secondary to CVI. 3. Significant lower extremity edema secondary to underlying chronic venous insufficiency with secondary lymphedema. 4. Multiple risk factors or co-morbidities that may contribute to wound healing difficulties include hypothyroid disease, chronic atrial fibrillation on anticoagulation, coronary artery disease, COPD, dyslipidemia, hypertension, muscle weakness, osteoarthritis, GERD, depression and obesity. 5. Wound cultures positive for Enterobacter cloacae and Staph aureus most likely increased colonization. 6. Very good glucose control based on recent HgbA1c. 7. Zinc insufficiency ( precursor for collagen synthesis. 8. No significant arterial disease based on recent PVRs. 9. No evidence of osteomyelitis based on recent XRs. 10. Valvular incompetency involving the right common femoral vein , right femoral vein, right great saphenous vein, left femoral vein (mid thigh) and left great saphenous vein (mid thigh). TREATMENT PLAN: Debridement Type: Autolytic Enzymatic Mechanical Surgical Sharp (N) Other: Wound Dressing: See Nursing Notes for details. . Topical Rx: 1. Right posterior-lateral distal leg: Wounds washed with saline solution x 10 cc. Pat dry. Calcium Alginate AG applied to the wound bed. Dry max and abd pads applied followed by Kerlix. 2 tape to secure . 2. Right medial distal leg: Wounds washed with saline solution x 10 cc. Pat dry. Calcium Alginate AG applied to the wound bed. Dry max and abd pads applied followed by Kerlix. 2 tape to secure . 3. Right lateral sole: Remains closed. 6x6 triact foam applied to protect heal. Systemis Rx: None CirAids to be ordered for maintenance therapy. Use pneumatic compression pumps twice daily with 40-50 mmhg compression Nutritional Support: MVI, Zinc Supplement and Protein Supplement Patient is instructed to continue a healthy, well-balanced diet for nutritional support for optimal healing. Protein is the most important nutrient for wound healing. Eating adequate amounts of protein allows the body to create new cells and chemicals to heal the wound, and increases the body?s ability to fight infection. Eating high protein foods daily is recommended such as: lean meats, fish, poultry, cheese, milk, yogurt, eggs and legumes. Vitamins and minerals provide a full range of nutrients for wound healing. It can help jump start the body's production of cells and chemicals needed for healing. Vitamins and minerals can be obtained through healthy foods in your diet and by taking a multiple vitamin supplement. Vitamin C is essential for collagen synthesis. Collagen and fibroblasts compose the basis for the structure of a new wound bed. Also, a deficiency of Vitamin C prolongs the healing time and contributes to reduced resistance to infection. Laboratory: We will obtain wound cultures to determine bacterial load. She will be treated accordingly. Wound cultures are collected to assess level of bacterial bio-burden. Excessive bio-burden can result in inflammatory and proliferative phase stagnation as well as compromise of normal wound healing physiology. Bacterial proliferation, biofilm production, critical colonization and the development of resistant organism can lead to wound infection, wound deterioration and devastating tissue loss. Knowing the organism that populated the wound can help direct therapy, particularly anti-microbial dressing choices. Vascular Evaluation: PVRs for both lower extremities to evaluate for arterial insufficiency completed. Pt advised to see Dr. Tavo Mcnair of Vascular Surgery for further evaluation given her underlying PVD to help with wound healing. Follow-up to be determined - call to schedule appointment depending on if she goes into the hospital. Given that the patient is extremely somnolent and her lower extremities are significantly swollen and weeping, she needs further evaluation and is now being transferred via wheelchair to the ED by our RN. Luis Simons CNP Charge Capture: [id number] Tiffanie Humphrey RN, RN 05/22/2018 3:53 PM Signed Nursing Note See provider note for wound description and measurements Dressing removed and wound washed with saline solution 0.9% In the presence and direction of the provider wound care as written below: Patient arrived for her visit. Patient has a hard time staying awake. Legs are grossly swollen with chux wrapped around them. Patient unable to bed her left knee keeping her foot on the wheelchair pedal due to the swelling throughout the extremity. Patient wheeled to the emergency room. Report given to Gabrielle BARBOSA. 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 LISINOPRIL 2.5 MG TABLET Take 1 tablet by mouth every * OMEPRAZOLE 20 MG CAPSULE,LUIS MIGUEL* Take 1 capsule by mouth once * DOCUSATE SODIUM 100 MG CAPSULE Take 1 capsule by mouth once * SODIUM HYPOCHLORITE 0.125 % S* Dakin's moistened gauze packi* WARFARIN 3 MG TABLET Take 1 tablet by mouth daily * Patient taking differently: Take 3 mg by mouth once daily* GABAPENTIN 300 MG CAPSULE Take 1 capsule by mouth twice* VITAMIN C ORAL Take 1 tablet by mouth twice * SILVER SULFADIAZINE 1 % TOPIC* Apply to leg wounds as direct* X ZINC SULFATE 220 MG TABLET Take 1 tablet by mouth once d* ACETAMINOPHEN 500 MG TABLET Take 1,000 mg by mouth every * ASPIRIN 81 MG TABLET,DELAYED * Take 81 mg by mouth every jean* MULTIVITAMIN-IRON 9 MG-FOLIC * Take 1 tablet by mouth once d* LEVOTHYROXINE 100 MCG TABLET Take 1 tablet by mouth once d* COMPOUNDED PRESCRIPTION Calcium Alginate 4x4 Dressing* Problem List As Of Date 05/22/2018 Noted Resolved Gastroesophageal reflux disease without esophag*INVALID FOR* Chronic atrial fibrillation (HCC) [I48.2] INVALID FOR* Priority: B More... Pure hypercholesterolemia [E78.00] Hypertension [I10] Priority: D Acquired hypothyroidism [E03.9] Priority: F CAD (coronary artery disease) [I25.10] More... 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 More... More... Respiratory failure with hypoxia (HCC) [J96.91] INVALID FOR* Priority: Severe Heart failure with preserved ejection fraction *INVALID FOR* Priority: B More... More... Requires continuous at home supplemental oxygen*INVALID FOR*01/20/2018 More... Adjustment disorder with depressed mood [F43.21]INVALID FOR* Constipation [K59.00] INVALID FOR* Leg ulcer, right, with fat layer exposed (HCC) *INVALID FOR* Venous stasis ulcer of right lower leg with melissa*INVALID FOR* Priority: A More... Venous stasis ulcer (HCC) [I83.009, L97.909] INVALID FOR* Priority: A Anticoagulation goal of INR 2 to 3 [Z51.81, Z79*INVALID FOR* Priority: C More... Class 2 obesity in adult [E66.9] INVALID FOR* Priority: M More... Hypotension [I95.9] INVALID FOR* Priority: D More... Pressure injury of skin, stage 2 [L89.92] INVALID FOR* Priority: E More... H/O noncompliance with medical treatment, prese*INVALID FOR* Priority: E More... CKD (chronic kidney disease), stage III (HCC) [*INVALID FOR* Priority: D More... Hyperkalemia [E87.5] INVALID FOR* More... Visit Notes: >> Tiffanie Hammer) ELENA Humphrey Mon May 22, 2018 3:52 PM Status: Signed Nursing Note See provider note for wound description and measurements Dressing removed and wound washed with saline solution 0.9% In the presence and direction of the provider wound care as written below: Patient arrived for her visit. Patient has a hard time staying awake. Legs are grossly swollen with chux wrapped around them. Patient unable to bed her left knee keeping her foot on the wheelchair pedal due to the swelling throughout the extremity. Patient wheeled to the emergency room. Report given to Gabrielle BARBOSA. Tiffanie Humphrey RN Encounter Status:Closed by LUIS SIMONS on 06/02/18 PROTIME W/INR Collected: 05/22/2018 Status: F Source: [facility] 6:38 AM [facility] REPOSITORY TYPE CODE TESTS RESULT OUT OF REFERENCE UNITS RANGE LAB L9200.1001 11.9-14.4 SEC High PROTIME ISTAT 31.5 Result Comment: Reference Range 11.9 - 14.4 LAB L9200.2000 Normal INR ISTAT 2.80 Result Comment: Critical Value > 3.5 Performed By: #### [id number] #### [facility] [place] Laboratory Point of Care [facility] [address] [place] [address] PROGRESS Observed: 05/19/2018 Status: COMPLETED Source: [place] 1:00 PM [facility] REPOSITORY O ID: [id number] Author: Luis Rodriguez) Carla Service: (none) Author Type: Nurse Practitioner Type: Progress Notes Filed: 06/01/2018 1:58 PM Note Text: DATE OF VISIT: 05/19/2018 REASON FOR VISIT: Non-healing lower extremity wound. HISTORY OF PRESENT ILLNESS: Rosa Beltran is a 81 year old female who presents to the [facility] for further evaluation and management of a non-healing leg wound. She has a past medical history significant for atrial fibrillation on Coumadin, coronary artery disease,?COPD, hypertension, dyslipidemia and CHF.?Patient has felt mildly short of breath over the past month. ?Increase with exertion and lying flat. She is on 40 mg of Lasix twice a day. She still is urinating appropriately. She has not had any chest pain or palpitations. ?Fever, chills, or sweats. ?No productive cough. ?No wheezing. Upon taking patients vitals, her SPO2 level was from 76% - 85%. Patient stated she had shortness of breath. She was unable to finish her sentences without catching her breath. The tips of her fingers were cyanotic. Patient was sent to the ER for further evaluation. Tiffanie BARBOSA wheeled patient to the ER. INTERVAL HISTORY: Patient was sent tot he ED during her previous visit due to low oxygenation. She is now on 2 L of oxygen at all times. She denies any breathing difficulty at this time. She is an 81 year old white female with a long-standing history of swelling in her lower extremities secondary to lymphedema. Approximately 2 years ago, she sustained a fracture to her right ankle, requiring surgical intervention. The operative site became infected, and required prolonged treatment and eventually a skin graft for complete wound closure. As a result, the patient's ambulatory capacity has been impaired. Furthermore, she is morbidly obese which limits her ambulation. The patient leads a relatively sedentary lifestyle and requires a walker for ambulation. She spends a great part of her day in a sitting position. She sleeps with the head of the bed elevated. Swelling in her lower extremities has been on-going for many years. The patient has undergone a battery of diagnostic tests. A non-invasive lower extremity arterial study in December 2016 reveals normal- ankle brachial indices, bilaterally. Venous doppler examination on 01/14 reveals incompetence of the great saphenous veins, bilaterally. There is also incompetence of the small saphenous veins, bilaterally and the right accessory saphenous vein. At present, she has three wounds, 2 on the right distal leg and the other is on the left posterior calf. The left leg wound has been present for over a year and was managed with silver alginate, NPWT, Santyl, serial sharp wound debridements, compression therapy using Surepress and compression pumps. Patient's wound cultures over the past several months have grown out Enterobacter cloacae, MRSA, coag-staph aureus, and in January grew out Pseudomonas, managed with oral antibiotics. IIn July of this year, she developed a new wound on the right lateral distal leg, then in July, she experience cellulitis of both legs requiring hospitalization. In the last year, she has been followed by Dr. Jaskaran Chance at the [facility]. It was felt that her home support system was inadequate and that she may not have the resources in her home environment to appropriately care for her needs. In this regard, a geriatric social work professor consultation had been recommended on several occassions, but patient apparently insisted on remaining in her home environment despite that there was thought that is may be less than optimal. The patient is here at the [facility] for a second opinion regarding management of the abovementioned bilateral lower extremity wounds. She offers no other complaints. She denies any fevers, chills, wound-related pain or other related symptoms. INTERVAL HISTORY: 05/19/18 Patient presents for a routine follow- up. She was recently admitted to [facility] in 03/2018 with right leg wound infection. Prior cultures have shown polymicrobial sanchez including Pseudomonas, ampicillin-susceptible Enterococcus, Proteus, and MSSA. MRI of the right leg during that hospitalization was negative for osteomyelitis. She was placed on IV antibiotics in the hospital and then discharged on Cipro and amoxicillin to go until 05/05/2018 by mouth. ? Today, she is noted to be extremely somnolent. Both of her lower extremities are significantly swollen and quite weepy. As a result, she has increased skin maceration to both legs and the previously healed wound to the right medial distal leg has reopened. Both wounds have been managed with calcium alginate with Ag. She denies fever or chills and other related symptoms. PAST MEDICAL HISTORY Diagnosis Date - Acquired hypothyroidism - Acute respiratory failure with hypoxia (HCC) 09/30/2017 - Atrial fibrillation ([facility]) - CAD (coronary artery disease) Dr. Brenda Awan Hts, Promus element KIMMY LAD 11/20/2012, Stress test 04/2014 inferoapical reversible ischemia,small LVEF 48- 50%, LHC 12/2014 L main-normal, LAD widely patent, Cx diffuse mild luminal irregularities with 80%focal stenosis distal, RCA dominant with minimal luminal irregularities. 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 - Pure hypercholesterolemia - Rheumatoid arthritis ([facility]) 2007 - Sleep apnea - Stented coronary artery 12/29/2016 PAST SURGICAL HISTORY Procedure Laterality Date - CC CORONARY STENT 11/20/2012 KIMMY LAD - CC CORONARY STENT 12/20/2014 KIMMY, Cfx - SECTION HX - COLONOSCOPY 06/10/2017 [facility], Nonspecific cecal ulcer - GASTRIC BYPASS HX 1986 - HERNIA REPAIR HX 1987; 1989 - PAST SURGICAL HISTORY OF Right 09/2015 right tibia fracture ORIF - PAST SURGICAL HISTORY OF Right 01/20/2016 Removal of hardware, right tibia - TOTAL KNEE REPLACEMENT Right 2003 [facility] Gen. - TOTAL KNEE REPLACEMENT Left 2004 [facility] Gen. MEDICATIONS ergocalciferol, vitamin D2, (DRISDOL) 50,000 unit capsule Take 1 capsule by mouth once each week. levothyroxine (LEVOXYL) 100 mcg tablet Take 1 tablet by mouth once daily. Take on empty stomach. For Thyroid. gabapentin (NEURONTIN) 300 mg capsule Take 1 capsule by mouth twice daily. metoprolol tartrate, short acting, (LOPRESSOR) 50 mg tablet TAKE ONE TABLET BY MOUTH TWICE DAILY furosemide (LASIX) 40 mg tablet Take 1 tablet by mouth twice daily. COMPOUNDED PRESCRIPTION Calcium Alginate 4x4 Dressing, change daily Dx: Blister left leg with infection S80.822A, L08.9; Lymphedema I89.0. Wound dimensions: 4 x 3 cm acetaminophen (TYLENOL) 500 mg tablet Take 1,000 mg by mouth every 8 hours as needed. aspirin, enteric coated (ASPIRIN, ENTERIC COATED) 81 mg EC tablet Take 81 mg by mouth once daily. warfarin (COUMADIN) 1 mg tablet Take 1 mg by mouth daily as directed. Take 1 tablet (1mg) by mouth once daily. Take with 1 x 3mg tablet to total 4mg by mouth once daily. warfarin (COUMADIN) 3 mg tablet Take 3 mg by mouth daily as directed. Take 1 tablet (3mg) by mouth once daily. Take with 1 x 1mg tablet to total 4mg by mouth once daily. lisinopril (ZESTRIL) 2.5 mg tablet Take 2.5 mg by mouth once daily. omeprazole (PRILOSEC) 20 mg capsule Take 20 mg by mouth once daily. spironolactone (ALDACTONE) 25 mg tablet Take 25 mg by mouth once daily. docusate sodium (COLACE) 100 mg capsule Take 100 mg by mouth once daily as needed. therapeutic multivitamin w/ iron (THERAGRAN-M) 9 mg iron-400 mcg tablet Take 1 tablet by mouth once daily. ALLERGIES No Known Allergies FAMILY HISTORY: Patient's father in his 70s with a history of arthritis. Her mother at the age of 90 with a history of arthritis. SOCIAL HISTORY Patient is a , lives alone, but has a son nearby. She has 6 children. Substance Use Topics - Smoking status: Passive Smoke Exposure - Never Smoker - Smokeless tobacco: Never Used Comment: smoked for 40 years - Alcohol use No REVIEW OF SYSTEM: PAIN ASSESSMENT: Negative for pain, history of chronic pain, or current treatment for a chronic pain condition. GENERAL: No weight loss, malaise or fevers HEENT: Negative for frequent or significant headaches, No changes in hearing or vision, no nose bleeds or other nasal problems NECK: Negative for lumps, goiter, pain and significant neck swelling RESPIRATORY: Negative for cough, hemoptysis, wheezing, positive for shortness of breath CARDIOVASCULAR: Negative for chest pain,palpitations; has chronic leg swelling GI: No nausea, vomiting, or diarrhea : No history of dysuria, frequency or incontinence MUSCULOSKELETAL: Negative for joint pain or swelling, back pain or muscle pain SKIN: As per HPI. Negative for any other lesions, rash, and itching PSYCH: Negative for sleep disturbance, mood disorder and recent psychosocial stressors HEMATOLOGY/LYMPHOLOGY: Negative for prolonged bleeding, bruising easily or swollen nodes ENDOCRINE: Negative for cold or heat intolerance, polyuria, polydipsia and goiter NEURO: No history of headaches, syncope, paralysis, seizures or tremors 05/19/18 1300 BP: 130/70 Pulse: 75 Resp: 19 Temp: 36.8 ?C (97.8 ?F) TempSrc: Oral SpO2: 94% Weight: 88.1 kg (194 lb 4.8 oz) PHYSICAL EXAMINATION: HEENT: PERRLA , sclera non-icteric, EOM intact, mucous membrane moist, pink and w/o lesions Comments: Neck: Supple, no bruit, no masses, trachea midline Comments: Chest: Lungs clear to auscultation, no accessory muscle use for respiration Comments: Heart: Regular rate/rhythm, normal S1,S2, no murmur, rubs or gallops Comments: Abdomen: Soft, non-tender, non-distended, + bowel sounds, no bruit, no organomegaly Comments: Extremity: Dorsalis pedis : Present (Y) Absent Diminished Doppler Posterior Tibialis: Present (Y) Absent Diminished Doppler Capillary Refill: < 3 sec. (Y) > 3 sec. ABIs: Right Left Rubor of Dependency: Negative (Y) Positive (N) Clif[place]-Weistein Examination: Comments: +3 edema BLEs Measurements: Right Calf: 60 cm Right Ankle: 34.5 cm Left Calf: 54 cm Left Ankle: 37 cm Neuro: Alert AND oriented x3, AUTOMOTIVE SALES REPRESENTATIVE II-XII grossly intact, reflexes 2+ and symmetric, UE/LE 5/5 Comments: Skin: No rashes, no abnormal skin lesions Comments: See wound assessment Most recent diagnostic/laboratory data: 10/14/17 Hemoglobin A1C = 5.8 ?? 10/14/17 WBC 8.4, Hgb 12.2, Hct 38.5, PLT 211, Glu 91, BUN 24, Cr 0.88, Na 136, K 4.7, Cl 100, Albumin 3.6, Total protein 9.1 11/04/17 Venous Doppler Study Bilateral Lower Extremities IMPRESSION RIGHT SIDE - DEEP VEINS Negative for acute deep vein thrombosis in vessels visualized. Positive for valvular incompetency in the common femoral vein and femoral vein. Lymph node noted, within the groin, measuring 2.75 x 2.71 x .809cm. Cystic structure noted, within the popliteal fossa, measuring 2.17 x 2.67 x 1.49cm. ? RIGHT SIDE - SUPERFICIAL VEINS Positive for valvular incompetency in the great saphenous vein. REFLUX ONLY NOTED AT PROXIMAL THIGH. Vessel becomes tortuous branching from proximal to distal calf. The anterior lateral branch is negative for incompetency. Positive for valvular incompetency in the small saphenous vein. REFLUX ONLY NOTED AT DISTAL CALF. LEFT SIDE - DEEP VEINS Negative for acute deep vein thrombosis in vessels visualized. Positive for valvular incompetency in the femoral vein at the mid thigh. LEFT SIDE - SUPERFICIAL VEINS Positive for valvular incompetency in the great saphenous vein. REFLUX ONLY NOTED AT MID CALF. Negative for valvular incompetency in the small saphenous vein. No previous scans for comparison; however, chronic appearing superficial thrombophlebitis in the great saphenous vein at the distal calf. ? Technologist: Cleo HOBBST Ordering physician: Luis Simons ? Interpreting physician: Vishal Torres MD, RVT ? 01/24/17 Segmental arterial doppler study bilateral lower extremities Findings: NIMISHA 1.04 to the right and 1.0 to the left. Based upon the findings of this resting non-invasive lower extremity arterial study, arterial perfusion to ankle level appears to be relatively normal bilaterally. Triphasic and biphasic waveforms were noted at ankle level bilaterally. Resting ankle-brachial indices were bilaterally normal. ? 08/01/17 X-Ray 3-View Right Ankle Impression: There is prior open reduction internal fixation of the fibula which appears to be relatively intact allowing for advanced bony osteopenia. There is an irregular appearance of the lateral side distal tibia which is compatible with a prior fracture for which a new fracture on the lateral side is not excluded. The fracture could be potentially be associated with new trauma or potentially infection. Recommend consideration for follow-up study such as MRI or potentially three-phase bone scan. ? Flattened appearance of the arch of the foot with degenerative change of the tarsotarsal joints. ? Diffuse soft tissue swelling. ? Electronically Signed: Kelly Camarena MD at 20:15 EDT Tel , Service support , ? 10/14/17 XR 2 View Tib/Fib (Left) Findings: Left tibia-fibula: Tibial component of the joint prosthesis noted without associated abnormal lucency. No acute fracture or bony destruction. Right tibia and fibula: Plate and screw fixation remote distal fibular fracture. There is also remote tibial fracture with residual posterior angulation. Ghost tracks from previous tibial hardware. Tibial component of the joint prosthesis noted without associated abnormal lucency. No acute fracture or bony destruction. ? Stereotype Finisher: DWIGHT ? Transcribe Date/Time: Oct 14 2017 ?4:02P Dictated by : ZURDO SANTOS MD ? 10/14/17 XR 2 View Tib/Fib (Right) Findings: Left tibia-fibula: Tibial component of the joint prosthesis noted without associated abnormal lucency. No acute fracture or bony destruction. Right tibia and fibula: Plate and screw fixation remote distal fibular fracture. There is also remote tibial fracture with residual posterior angulation. Ghost tracks from previous tibial hardware. Tibial component of the joint prosthesis noted without associated abnormal lucency. No acute fracture or bony destruction. ? Stereotype Finisher: DWIGHT ? Transcribe Date/Time: Oct 14 2017 ?4:02P Dictated by : ZURDO SANTOS MD ? 10/14/17 XR 2 View Tib/Fib (Left) Findings: Left tibia-fibula: Tibial component of the joint prosthesis noted without associated abnormal lucency. No acute fracture or bony destruction. Right tibia and fibula: Plate and screw fixation remote distal fibular fracture. There is also remote tibial fracture with residual posterior angulation. Ghost tracks from previous tibial hardware. Tibial component of the joint prosthesis noted without associated abnormal lucency. No acute fracture or bony destruction. WOUND ASSESSMENT: Wound Number: 1 First Assessed Date: 10/14/17 Pre-existing: YES Location: Leg Orientation: Right, Lateral and Distal Wound Etiology: Venous Depth of Tissue Injury (Non-pressure): Full Thickness Diabetic Wounds:N/A Pressure Injury: N/A Pre-debridement Measurements Initial (First Visit): 3.5 cm length x 4.0 cm width x 0.5 cm depth Pre-debridement Measurements Initial (Current Visit): 8.7 cm length x 12.8 cm width x 0.5 cm depth Post Debridement Measurement (Current): N/A % Healing Rate/#Weeks: - 7.9 % -- Week 31 Wound Bed (Post-debridement): 100% red % of Healthy tissue: Undermining: No Tunneling: No Tendon/bone exposed: NO Wound Edge/Margins: Irregular wound edges and Edge attached to base, macerated Periwound Tissue: Mild erythema, Wet (macerated), and significant edema with weeping Exudate Amount:Moderate Consistency:Serous Odor:Minimal Infection/Critical Colonization: None Localized s/s: Non-healing and Increased exudate Systemic s/s: None Local/systemic Rx: None Wound Healing Status: Chronic Clinically presenting as: Stalled wound healing Current topical treatment: calcium alginate with Ag Wound Number: 2 First Assessed Date: 10/14/17 Pre-existing: YES Location: Leg Orientation: Right, Medial and Distal Wound Etiology: Surgical Depth of Tissue Injury (Non-pressure): Partial Thickness Diabetic Wounds:N/A Pressure Injury: N/A Pre-Measurements Initial (First Visit): 0.5 cm length x 0.4 cm width x 0.1 cm depth Post Measurement (Current): Epithelialized % Healing Rate/#Weeks: Week 1 -- Healed Wound Bed (Post-debridement): % of Healthy tissue: Undermining: No Tunneling: No Tendon/bone exposed: NO Wound Edge/Margins: Normal, intact, Irregular wound edges and Edge attached to base Periwound Tissue: Normal, intact,uninvolved tissue and Dry,flaky Exudate Amount: None Consistency: None Odor:None Infection/Critical Colonization Localized s/s: None and Edema Systemic s/s: None Local/systemic Rx: None Wound Healing Status: Chronic Clinically presenting as: Healed Current topical treatment: Iodoflex Wound Number: 4 First Assessed Date: 03/08/18 Pre-existing: YES Location: Leg (calf) Orientation: Right anterior ace Wound Etiology: Venous Depth of Tissue Injury (Non-pressure): Full Thickness Diabetic Wounds:N/A Pressure Injury: N/A Pre-Measurements Initial (First Visit): 2.0 cm length x 2.5 cm width x 0.1 cm depth Post Measurement (Current): Epithelialized % Healing Rate/#Weeks: Healed Wound Bed (Post-debridement): N/A % of Healthy tissue: Undermining: No Tunneling: No Tendon/bone exposed: NO Wound Edge/Margins: Well-defined wound edges and Edge attached to base Periwound Tissue: [employer], dry and intact, No fluctuance, induration or advancing soft tissue necrosis or ischemia Exudate: None Consistency: None Odor:None Infection/Critical Colonization: N/A Localized s/s: None Systemic s/s: None Local/systemic Rx: None Wound Healing Status: Stable Clinically presenting as: Wound closed Current topical treatment: Zinc oxide Wound Number: 5 First Assessed Date: 03/08/18 Pre-existing: YES Location: Foot Orientation: Right lateral Wound Etiology: Venous Depth of Tissue Injury (Non-pressure): Full Thickness Diabetic Wounds:N/A Pressure Injury: N/A Pre-Measurements Initial (First Visit): 1.5 cm length x 1.0 cm width x 0.1 cm depth Post Measurement (Current): Epithelialized % Healing Rate/#Weeks: Healed Wound Bed (Post-debridement): N/A % of Healthy tissue: Undermining: No Tunneling: No Tendon/bone exposed: NO Wound Edge/Margins: Well-defined wound edges and Edge attached to base Periwound Tissue: [employer], dry and intact, No fluctuance, induration or advancing soft tissue necrosis or ischemia Exudate: None Consistency: None Odor:None Infection/Critical Colonization: N/A Localized s/s: None Systemic s/s: None Local/systemic Rx: None Wound Healing Status: Stable Clinically presenting as: Closed wound Current topical treatment: Zinc oxide paste Wound Number: 3 First Assessed Date: 10/14/17 Pre-existing: YES Location: Leg (calf) Orientation: Left and Posterior Wound Etiology: Venous Depth of Tissue Injury (Non-pressure): Full Thickness Diabetic Wounds:N/A Pressure Injury: N/A Pre-Measurements Initial (First Visit): 1.3 cm length x 1.2 cm width x 0.1 cm depth Post Measurement (Current): Epithelialized % Healing Rate/#Weeks: 100 % -- Week 5 Wound Bed (Post-debridement): 100% [employer] % of Healthy tissue: Undermining: No Tunneling: No Tendon/bone exposed: NO Wound Edge/Margins: Well-defined wound edges and Edge attached to base Periwound Tissue: [employer], dry and intact, No fluctuance, induration or advancing soft tissue necrosis or ischemia Exudate: Nonr Consistency: None Odor:None Infection/Critical Colonization: N/A Localized s/s: None Systemic s/s: None Local/systemic Rx: None Wound Healing Status: Chronic Clinically presenting as: Healed Current topical treatment: Collagen Wound Number: 6 First Assessed Date: 05/19/18 Pre-existing: YES Location: Leg Orientation: Right, Medial and Distal Wound Etiology: Venous Depth of Tissue Injury (Non-pressure): Full Thickness Diabetic Wounds:N/A Pressure Injury: N/A Pre-debridement Measurements Initial (First Visit): 4.2 cm length x 4.8 cm width x 1.3 cm depth Pre-debridement Measurements Initial (Current Visit): New Wound Post Debridement Measurement (Current): N/A % Healing Rate/#Weeks: N/A Wound Bed (Post-debridement): N/A % of Healthy tissue: Undermining: No Tunneling: No Tendon/bone exposed: NO Wound Edge/Margins: Irregular wound edges and Edge attached to base, macerated Periwound Tissue: Mild erythema, Wet (macerated), and significant edema with weeping Exudate Amount:Moderate Consistency:Serous Odor:Minimal Infection/Critical Colonization: None Localized s/s: Non-healing and Increased exudate Systemic s/s: None Local/systemic Rx: None Wound Healing Status: Chronic Clinically presenting as: Stalled wound healing Current topical treatment: calcium alginate with Ag IMPRESSION: 1. Non-healing right and left lower extremity wounds ( #1 and #3) in the setting of chronic venous insufficiency with secondary lymphedema. 2. Recurrent right medial leg wound s/p STSG in the setting of chronic edema secondary to CVI. 3. Significant lower extremity edema secondary to underlying chronic venous insufficiency with secondary lymphedema. 4. Multiple risk factors or co-morbidities that may contribute to wound healing difficulties include hypothyroid disease, chronic atrial fibrillation on anticoagulation, coronary artery disease, COPD, dyslipidemia, hypertension, muscle weakness, osteoarthritis, GERD, depression and obesity. 5. Wound cultures positive for Enterobacter cloacae and Staph aureus most likely increased colonization. 6. Very good glucose control based on recent HgbA1c. 7. Zinc insufficiency ( precursor for collagen synthesis. 8. No significant arterial disease based on recent PVRs. 9. No evidence of osteomyelitis based on recent XRs. 10. Valvular incompetency involving the right common femoral vein , right femoral vein, right great saphenous vein, left femoral vein (mid thigh) and left great saphenous vein (mid thigh). TREATMENT PLAN: Debridement Type: Autolytic Enzymatic Mechanical Surgical Sharp (N) Other: Wound Dressing: See Nursing Notes for details. . Topical Rx: 1. Right posterior-lateral distal leg: Wounds washed with saline solution x 10 cc. Pat dry. Calcium Alginate AG applied to the wound bed. Dry max and abd pads applied followed by Kerlix. 2 tape to secure . 2. Right medial distal leg: Wounds washed with saline solution x 10 cc. Pat dry. Calcium Alginate AG applied to the wound bed. Dry max and abd pads applied followed by Kerlix. 2 tape to secure . 3. Right lateral sole: Remains closed. 6x6 triact foam applied to protect heal. Systemis Rx: None CirAids to be ordered for maintenance therapy. Use pneumatic compression pumps twice daily with 40-50 mmhg compression Nutritional Support: MVI, Zinc Supplement and Protein Supplement Patient is instructed to continue a healthy, well-balanced diet for nutritional support for optimal healing. Protein is the most important nutrient for wound healing. Eating adequate amounts of protein allows the body to create new cells and chemicals to heal the wound, and increases the body?s ability to fight infection. Eating high protein foods daily is recommended such as: lean meats, fish, poultry, cheese, milk, yogurt, eggs and legumes. Vitamins and minerals provide a full range of nutrients for wound healing. It can help jump start the body's production of cells and chemicals needed for healing. Vitamins and minerals can be obtained through healthy foods in your diet and by taking a multiple vitamin supplement. Vitamin C is essential for collagen synthesis. Collagen and fibroblasts compose the basis for the structure of a new wound bed. Also, a deficiency of Vitamin C prolongs the healing time and contributes to reduced resistance to infection. Laboratory: We will obtain wound cultures to determine bacterial load. She will be treated accordingly. Wound cultures are collected to assess level of bacterial bio-burden. Excessive bio-burden can result in inflammatory and proliferative phase stagnation as well as compromise of normal wound healing physiology. Bacterial proliferation, biofilm production, critical colonization and the development of resistant organism can lead to wound infection, wound deterioration and devastating tissue loss. Knowing the organism that populated the wound can help direct therapy, particularly anti-microbial dressing choices. Vascular Evaluation: PVRs for both lower extremities to evaluate for arterial insufficiency completed. Pt advised to see Dr. Tavo Mcnair of Vascular Surgery for further evaluation given her underlying PVD to help with wound healing. Follow-up to be determined - call to schedule appointment depending on if she goes into the hospital. Given that the patient is extremely somnolent and her lower extremities are significantly swollen and weeping, she needs further evaluation and is now being transferred via wheelchair to the ED by our RN. Luis Simons CNP Charge Capture: [id number] CNOV Observed: 05/19/2018 Status: COMPLETED Source: [facility] 1:00 PM CLINIC OTHER CAMPUS REPOSITORY Office Visit ([facility]) ROSA BELTRAN ([id number]) 1935 F Date Time Provider Department 05/19/18 1:00 PM LUIS SIMONS, (LO[facility]) [facility] During your visit today, we recorded the following information about you: Temperature Pulse Respiration Blood pressure 98.4 degrees 67/minute 19/minute 121/75 Luis Simons APRN.CNP 06/01/2018 1:58 PM Signed DATE OF VISIT: 05/19/2018 REASON FOR VISIT: Non-healing lower extremity wound. HISTORY OF PRESENT ILLNESS: Rosa Beltran is a 81 year old female who presents to the [facility] for further evaluation and management of a non-healing leg wound. She has a past medical history significant for atrial fibrillation on Coumadin, coronary artery disease,?COPD, hypertension, dyslipidemia and CHF.?Patient has felt mildly short of breath over the past month. ?Increase with exertion and lying flat. She is on 40 mg of Lasix twice a day. She still is urinating appropriately. She has not had any chest pain or palpitations. ?Fever, chills, or sweats. ?No productive cough. ?No wheezing. Upon taking patients vitals, her SPO2 level was from 76% - 85%. Patient stated she had shortness of breath. She was unable to finish her sentences without catching her breath. The tips of her fingers were cyanotic. Patient was sent to the ER for further evaluation. Tiffanie BARBOSA wheeled patient to the ER. INTERVAL HISTORY: Patient was sent tot he ED during her previous visit due to low oxygenation. She is now on 2 L of oxygen at all times. She denies any breathing difficulty at this time. She is an 81 year old white female with a long-standing history of swelling in her lower extremities secondary to lymphedema. Approximately 2 years ago, she sustained a fracture to her right ankle, requiring surgical intervention. The operative site became infected, and required prolonged treatment and eventually a skin graft for complete wound closure. As a result, the patient's ambulatory capacity has been impaired. Furthermore, she is morbidly obese which limits her ambulation. The patient leads a relatively sedentary lifestyle and requires a walker for ambulation. She spends a great part of her day in a sitting position. She sleeps with the head of the bed elevated. Swelling in her lower extremities has been on-going for many years. The patient has undergone a battery of diagnostic tests. A non-invasive lower extremity arterial study in December 2016 reveals normal-ankle brachial indices, bilaterally. Venous doppler examination on 01/14 reveals incompetence of the great saphenous veins, bilaterally. There is also incompetence of the small saphenous veins, bilaterally and the right accessory saphenous vein. At present, she has three wounds, 2 on the right distal leg and the other is on the left posterior calf. The left leg wound has been present for over a year and was managed with silver alginate, NPWT, Santyl, serial sharp wound debridements, compression therapy using Surepress and compression pumps. Patient's wound cultures over the past several months have grown out Enterobacter cloacae, MRSA, coag-staph aureus, and in January grew out Pseudomonas, managed with oral antibiotics. IIn July of this year, she developed a new wound on the right lateral distal leg, then in July, she experience cellulitis of both legs requiring hospitalization. In the last year, she has been followed by Dr. Jaskaran Chance at the [facility]. It was felt that her home support system was inadequate and that she may not have the resources in her home environment to appropriately care for her needs. In this regard, a geriatric social work professor consultation had been recommended on several occassions, but patient apparently insisted on remaining in her home environment despite that there was thought that is may be less than optimal. The patient is here at the [facility] for a second opinion regarding management of the abovementioned bilateral lower extremity wounds. She offers no other complaints. She denies any fevers, chills, wound-related pain or other related symptoms. INTERVAL HISTORY: 05/19/18 Patient presents for a routine follow- up. She was recently admitted to [facility] in 03/2018 with right leg wound infection. Prior cultures have shown polymicrobial sanchez including Pseudomonas, ampicillin-susceptible Enterococcus, Proteus, and MSSA. MRI of the right leg during that hospitalization was negative for osteomyelitis. She was placed on IV antibiotics in the hospital and then discharged on Cipro and amoxicillin to go until 05/05/2018 by mouth. ? Today, she is noted to be extremely somnolent. Both of her lower extremities are significantly swollen and quite weepy. As a result, she has increased skin maceration to both legs and the previously healed wound to the right medial distal leg has reopened. Both wounds have been managed with calcium alginate with Ag. She denies fever or chills and other related symptoms. PAST MEDICAL HISTORY Diagnosis Date - Acquired hypothyroidism - Acute respiratory failure with hypoxia ([facility]) 09/30/2017 - Atrial fibrillation ([facility]) - CAD (coronary artery disease) Dr. Brenda Awan Hts, Promus element KIMMY LAD 11/20/2012, Stress test 04/2014 inferoapical reversible ischemia,small LVEF 48-50%, LHC 12/2014 L main-normal, LAD widely patent, Cx diffuse mild luminal irregularities with 80%focal stenosis distal, RCA dominant with minimal luminal irregularities. 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 - TOTAL KNEE REPLACEMENT Left 2004 [facility]. MEDICATIONS ergocalciferol, vitamin D2, (DRISDOL) 50,000 unit capsule Take 1 capsule by mouth once each week. levothyroxine (LEVOXYL) 100 mcg tablet Take 1 tablet by mouth once daily. Take on empty stomach. For Thyroid. gabapentin (NEURONTIN) 300 mg capsule Take 1 capsule by mouth twice daily. metoprolol tartrate, short acting, (LOPRESSOR) 50 mg tablet TAKE ONE TABLET BY MOUTH TWICE DAILY furosemide (LASIX) 40 mg tablet Take 1 tablet by mouth twice daily. COMPOUNDED PRESCRIPTION Calcium Alginate 4x4 Dressing, change daily Dx: Blister left leg with infection S80.822A, L08.9; Lymphedema I89.0. Wound dimensions: 4 x 3 cm acetaminophen (TYLENOL) 500 mg tablet Take 1,000 mg by mouth every 8 hours as needed. aspirin, enteric coated (ASPIRIN, ENTERIC COATED) 81 mg EC tablet Take 81 mg by mouth once daily. warfarin (COUMADIN) 1 mg tablet Take 1 mg by mouth daily as directed. Take 1 tablet (1mg) by mouth once daily. Take with 1 x 3mg tablet to total 4mg by mouth once daily. warfarin (COUMADIN) 3 mg tablet Take 3 mg by mouth daily as directed. Take 1 tablet (3mg) by mouth once daily. Take with 1 x 1mg tablet to total 4mg by mouth once daily. lisinopril (ZESTRIL) 2.5 mg tablet Take 2.5 mg by mouth once daily. omeprazole (PRILOSEC) 20 mg capsule Take 20 mg by mouth once daily. spironolactone (ALDACTONE) 25 mg tablet Take 25 mg by mouth once daily. docusate sodium (COLACE) 100 mg capsule Take 100 mg by mouth once daily as needed. therapeutic multivitamin w/ iron (THERAGRAN-M) 9 mg iron-400 mcg tablet Take 1 tablet by mouth once daily. ALLERGIES No Known Allergies FAMILY HISTORY: Patient's father in his 70s with a history of arthritis. Her mother at the age of 90 with a history of arthritis. SOCIAL HISTORY Patient is a , lives alone, but has a son nearby. She has 6 children. Substance Use Topics - Smoking status: Passive Smoke Exposure - Never Smoker - Smokeless tobacco: Never Used Comment: smoked for 40 years - Alcohol use No REVIEW OF SYSTEM: PAIN ASSESSMENT: Negative for pain, history of chronic pain, or current treatment for a chronic pain condition. GENERAL: No weight loss, malaise or fevers HEENT: Negative for frequent or significant headaches, No changes in hearing or vision, no nose bleeds or other nasal problems NECK: Negative for lumps, goiter, pain and significant neck swelling RESPIRATORY: Negative for cough, hemoptysis, wheezing, positive for shortness of breath CARDIOVASCULAR: Negative for chest pain,palpitations; has chronic leg swelling GI: No nausea, vomiting, or diarrhea : No history of dysuria, frequency or incontinence MUSCULOSKELETAL: Negative for joint pain or swelling, back pain or muscle pain SKIN: As per HPI. Negative for any other lesions, rash, and itching PSYCH: Negative for sleep disturbance, mood disorder and recent psychosocial stressors HEMATOLOGY/LYMPHOLOGY: Negative for prolonged bleeding, bruising easily or swollen nodes ENDOCRINE: Negative for cold or heat intolerance, polyuria, polydipsia and goiter NEURO: No history of headaches, syncope, paralysis, seizures or tremors 05/19/18 1300 BP: 130/70 Pulse: 75 Resp: 19 Temp: 36.8 ?C (97.8 ?F) TempSrc: Oral SpO2: 94% Weight: 88.1 kg (194 lb 4.8 oz) PHYSICAL EXAMINATION: HEENT: PERRLA , sclera non-icteric, EOM intact, mucous membrane moist, pink and w/o lesions Comments: Neck: Supple, no bruit, no masses, trachea midline Comments: Chest: Lungs clear to auscultation, no accessory muscle use for respiration Comments: Heart: Regular rate/rhythm, normal S1,S2, no murmur, rubs or gallops Comments: Abdomen: Soft, non-tender, non-distended, + bowel sounds, no bruit, no organomegaly Comments: Extremity: Dorsalis pedis : Present (Y) Absent Diminished Doppler Posterior Tibialis: Present (Y) Absent Diminished Doppler Capillary Refill: < 3 sec. (Y) > 3 sec. ABIs: Right Left Rubor of Dependency: Negative (Y) Positive (N) [place]if[place]in Examination: Comments: +3 edema BLEs Measurements: Right Calf: 60 cm Right Ankle: 34.5 cm Left Calf: 54 cm Left Ankle: 37 cm Neuro: Alert AND oriented x3, AUTOMOTIVE SALES REPRESENTATIVE II-XII grossly intact, reflexes 2+ and symmetric, UE/LE 5/5 Comments: Skin: No rashes, no abnormal skin lesions Comments: See wound assessment Most recent diagnostic/laboratory data: 10/14/17 Hemoglobin A1C = 5.8 ?? 10/14/17 WBC 8.4, Hgb 12.2, Hct 38.5, PLT 211, Glu 91, BUN 24, Cr 0.88, Na 136, K 4.7, Cl 100, Albumin 3.6, Total protein 9.1 11/04/17 Venous Doppler Study Bilateral Lower Extremities IMPRESSION RIGHT SIDE - DEEP VEINS Negative for acute deep vein thrombosis in vessels visualized. Positive for valvular incompetency in the common femoral vein and femoral vein. Lymph node noted, within the groin, measuring 2.75 x 2.71 x .809cm. Cystic structure noted, within the popliteal fossa, measuring 2.17 x 2.67 x 1.49cm. ? RIGHT SIDE - SUPERFICIAL VEINS Positive for valvular incompetency in the great saphenous vein. REFLUX ONLY NOTED AT PROXIMAL THIGH. Vessel becomes tortuous branching from proximal to distal calf. The anterior lateral branch is negative for incompetency. Positive for valvular incompetency in the small saphenous vein. REFLUX ONLY NOTED AT DISTAL CALF. LEFT SIDE - DEEP VEINS Negative for acute deep vein thrombosis in vessels visualized. Positive for valvular incompetency in the femoral vein at the mid thigh. LEFT SIDE - SUPERFICIAL VEINS Positive for valvular incompetency in the great saphenous vein. REFLUX ONLY NOTED AT MID CALF. Negative for valvular incompetency in the small saphenous vein. No previous scans for comparison; however, chronic appearing superficial thrombophlebitis in the great saphenous vein at the distal calf. ? Technologist: Cleo HOBBST Ordering physician: Luis Simons ? Interpreting physician: Vishal Torres MD, RVT ? 01/24/17 Segmental arterial doppler study bilateral lower extremities Findings: NIMISHA 1.04 to the right and 1.0 to the left. Based upon the findings of this resting non-invasive lower extremity arterial study, arterial perfusion to ankle level appears to be relatively normal bilaterally. Triphasic and biphasic waveforms were noted at ankle level bilaterally. Resting ankle- brachial indices were bilaterally normal. ? 08/01/17 X-Ray 3-View Right Ankle Impression: There is prior open reduction internal fixation of the fibula which appears to be relatively intact allowing for advanced bony osteopenia. There is an irregular appearance of the lateral side distal tibia which is compatible with a prior fracture for which a new fracture on the lateral side is not excluded. The fracture could be potentially be associated with new trauma or potentially infection. Recommend consideration for follow- up study such as MRI or potentially three-phase bone scan. ? Flattened appearance of the arch of the foot with degenerative change of the tarsotarsal joints. ? Diffuse soft tissue swelling. ? Electronically Signed: Kelly Camarena MD at 20:15 EDT Tel , Service support , ? 10/14/17 XR 2 View Tib/Fib (Left) Findings: Left tibia-fibula: Tibial component of the joint prosthesis noted without associated abnormal lucency. No acute fracture or bony destruction. Right tibia and fibula: Plate and screw fixation remote distal fibular fracture. There is also remote tibial fracture with residual posterior angulation. Ghost tracks from previous tibial hardware. Tibial component of the joint prosthesis noted without associated abnormal lucency. No acute fracture or bony destruction. ? Stereotype Finisher: PSCB ? Transcribe Date/Time: Oct 14 2017 ?4:02P Dictated by : ZURDO SANTOS MD ? 10/14/17 XR 2 View Tib/Fib (Right) Findings: Left tibia-fibula: Tibial component of the joint prosthesis noted without associated abnormal lucency. No acute fracture or bony destruction. Right tibia and fibula: Plate and screw fixation remote distal fibular fracture. There is also remote tibial fracture with residual posterior angulation. Ghost tracks from previous tibial hardware. Tibial component of the joint prosthesis noted without associated abnormal lucency. No acute fracture or bony destruction. ? Stereotype Finisher: PSCB ? Transcribe Date/Time: Oct 14 2017 ?4:02P Dictated by : ZURDO SANTOS MD ? 10/14/17 XR 2 View Tib/Fib (Left) Findings: Left tibia-fibula: Tibial component of the joint prosthesis noted without associated abnormal lucency. No acute fracture or bony destruction. Right tibia and fibula: Plate and screw fixation remote distal fibular fracture. There is also remote tibial fracture with residual posterior angulation. Ghost tracks from previous tibial hardware. Tibial component of the joint prosthesis noted without associated abnormal lucency. No acute fracture or bony destruction. WOUND ASSESSMENT: Wound Number: 1 First Assessed Date: 10/14/17 Pre-existing: YES Location: Leg Orientation: Right, Lateral and Distal Wound Etiology: Venous Depth of Tissue Injury (Non-pressure): Full Thickness Diabetic Wounds:N/A Pressure Injury: N/A Pre-debridement Measurements Initial (First Visit): 3.5 cm length x 4.0 cm width x 0.5 cm depth Pre-debridement Measurements Initial (Current Visit): 8.7 cm length x 12.8 cm width x 0.5 cm depth Post Debridement Measurement (Current): N/A % Healing Rate/#Weeks: - 7.9 % -- Week 31 Wound Bed (Post-debridement): 100% red % of Healthy tissue: Undermining: No Tunneling: No Tendon/bone exposed: NO Wound Edge/Margins: Irregular wound edges and Edge attached to base, macerated Periwound Tissue: Mild erythema, Wet (macerated), and significant edema with weeping Exudate Amount:Moderate Consistency:Serous Odor:Minimal Infection/Critical Colonization: None Localized s/s: Non-healing and Increased exudate Systemic s/s: None Local/systemic Rx: None Wound Healing Status: Chronic Clinically presenting as: Stalled wound healing Current topical treatment: calcium alginate with Ag Wound Number: 2 First Assessed Date: 10/14/17 Pre-existing: YES Location: Leg Orientation: Right, Medial and Distal Wound Etiology: Surgical Depth of Tissue Injury (Non-pressure): Partial Thickness Diabetic Wounds:N/A Pressure Injury: N/A Pre-Measurements Initial (First Visit): 0.5 cm length x 0.4 cm width x 0.1 cm depth Post Measurement (Current): Epithelialized % Healing Rate/#Weeks: Week 1 -- Healed Wound Bed (Post-debridement): % of Healthy tissue: Undermining: No Tunneling: No Tendon/bone exposed: NO Wound Edge/Margins: Normal, intact, Irregular wound edges and Edge attached to base Periwound Tissue: Normal, intact,uninvolved tissue and Dry,flaky Exudate Amount: None Consistency: None Odor:None Infection/Critical Colonization Localized s/s: None and Edema Systemic s/s: None Local/systemic Rx: None Wound Healing Status: Chronic Clinically presenting as: Healed Current topical treatment: Iodoflex Wound Number: 4 First Assessed Date: 03/08/18 Pre-existing: YES Location: Leg (calf) Orientation: Right anterior ace Wound Etiology: Venous Depth of Tissue Injury (Non-pressure): Full Thickness Diabetic Wounds:N/A Pressure Injury: N/A Pre-Measurements Initial (First Visit): 2.0 cm length x 2.5 cm width x 0.1 cm depth Post Measurement (Current): Epithelialized % Healing Rate/#Weeks: Healed Wound Bed (Post-debridement): N/A % of Healthy tissue: Undermining: No Tunneling: No Tendon/bone exposed: NO Wound Edge/Margins: Well-defined wound edges and Edge attached to base Periwound Tissue: [employer], dry and intact, No fluctuance, induration or advancing soft tissue necrosis or ischemia Exudate: None Consistency: None Odor:None Infection/Critical Colonization: N/A Localized s/s: None Systemic s/s: None Local/systemic Rx: None Wound Healing Status: Stable Clinically presenting as: Wound closed Current topical treatment: Zinc oxide Wound Number: 5 First Assessed Date: 03/08/18 Pre-existing: YES Location: Foot Orientation: Right lateral Wound Etiology: Venous Depth of Tissue Injury (Non-pressure): Full Thickness Diabetic Wounds:N/A Pressure Injury: N/A Pre-Measurements Initial (First Visit): 1.5 cm length x 1.0 cm width x 0.1 cm depth Post Measurement (Current): Epithelialized % Healing Rate/#Weeks: Healed Wound Bed (Post-debridement): N/A % of Healthy tissue: Undermining: No Tunneling: No Tendon/bone exposed: NO Wound Edge/Margins: Well-defined wound edges and Edge attached to base Periwound Tissue: [employer], dry and intact, No fluctuance, induration or advancing soft tissue necrosis or ischemia Exudate: None Consistency: None Odor:None Infection/Critical Colonization: N/A Localized s/s: None Systemic s/s: None Local/systemic Rx: None Wound Healing Status: Stable Clinically presenting as: Closed wound Current topical treatment: Zinc oxide paste Wound Number: 3 First Assessed Date: 10/14/17 Pre-existing: YES Location: Leg (calf) Orientation: Left and Posterior Wound Etiology: Venous Depth of Tissue Injury (Non-pressure): Full Thickness Diabetic Wounds:N/A Pressure Injury: N/A Pre-Measurements Initial (First Visit): 1.3 cm length x 1.2 cm width x 0.1 cm depth Post Measurement (Current): Epithelialized % Healing Rate/#Weeks: 100 % -- Week 5 Wound Bed (Post-debridement): 100% [employer] % of Healthy tissue: Undermining: No Tunneling: No Tendon/bone exposed: NO Wound Edge/Margins: Well-defined wound edges and Edge attached to base Periwound Tissue: [employer], dry and intact, No fluctuance, induration or advancing soft tissue necrosis or ischemia Exudate: Nonr Consistency: None Odor:None Infection/Critical Colonization: N/A Localized s/s: None Systemic s/s: None Local/systemic Rx: None Wound Healing Status: Chronic Clinically presenting as: Healed Current topical treatment: Collagen Wound Number: 6 First Assessed Date: 05/19/18 Pre-existing: YES Location: Leg Orientation: Right, Medial and Distal Wound Etiology: Venous Depth of Tissue Injury (Non-pressure): Full Thickness Diabetic Wounds:N/A Pressure Injury: N/A Pre-debridement Measurements Initial (First Visit): 4.2 cm length x 4.8 cm width x 1.3 cm depth Pre-debridement Measurements Initial (Current Visit): New Wound Post Debridement Measurement (Current): N/A % Healing Rate/#Weeks: N/A Wound Bed (Post-debridement): N/A % of Healthy tissue: Undermining: No Tunneling: No Tendon/bone exposed: NO Wound Edge/Margins: Irregular wound edges and Edge attached to base, macerated Periwound Tissue: Mild erythema, Wet (macerated), and significant edema with weeping Exudate Amount:Moderate Consistency:Serous Odor:Minimal Infection/Critical Colonization: None Localized s/s: Non-healing and Increased exudate Systemic s/s: None Local/systemic Rx: None Wound Healing Status: Chronic Clinically presenting as: Stalled wound healing Current topical treatment: calcium alginate with Ag IMPRESSION: 1. Non-healing right and left lower extremity wounds ( #1 and #3) in the setting of chronic venous insufficiency with secondary lymphedema. 2. Recurrent right medial leg wound s/p STSG in the setting of chronic edema secondary to CVI. 3. Significant lower extremity edema secondary to underlying chronic venous insufficiency with secondary lymphedema. 4. Multiple risk factors or co-morbidities that may contribute to wound healing difficulties include hypothyroid disease, chronic atrial fibrillation on anticoagulation, coronary artery disease, COPD, dyslipidemia, hypertension, muscle weakness, osteoarthritis, GERD, depression and obesity. 5. Wound cultures positive for Enterobacter cloacae and Staph aureus most likely increased colonization. 6. Very good glucose control based on recent HgbA1c. 7. Zinc insufficiency ( precursor for collagen synthesis. 8. No significant arterial disease based on recent PVRs. 9. No evidence of osteomyelitis based on recent XRs. 10. Valvular incompetency involving the right common femoral vein , right femoral vein, right great saphenous vein, left femoral vein (mid thigh) and left great saphenous vein (mid thigh). TREATMENT PLAN: Debridement Type: Autolytic Enzymatic Mechanical Surgical Sharp (N) Other: Wound Dressing: See Nursing Notes for details. . Topical Rx: 1. Right posterior-lateral distal leg: Wounds washed with saline solution x 10 cc. Pat dry. Calcium Alginate AG applied to the wound bed. Dry max and abd pads applied followed by Kerlix. 2 tape to secure . 2. Right medial distal leg: Wounds washed with saline solution x 10 cc. Pat dry. Calcium Alginate AG applied to the wound bed. Dry max and abd pads applied followed by Kerlix. 2 tape to secure . 3. Right lateral sole: Remains closed. 6x6 triact foam applied to protect heal. Systemis Rx: None CirAids to be ordered for maintenance therapy. Use pneumatic compression pumps twice daily with 40-50 mmhg compression Nutritional Support: MVI, Zinc Supplement and Protein Supplement Patient is instructed to continue a healthy, well-balanced diet for nutritional support for optimal healing. Protein is the most important nutrient for wound healing. Eating adequate amounts of protein allows the body to create new cells and chemicals to heal the wound, and increases the body?s ability to fight infection. Eating high protein foods daily is recommended such as: lean meats, fish, poultry, cheese, milk, yogurt, eggs and legumes. Vitamins and minerals provide a full range of nutrients for wound healing. It can help jump start the body's production of cells and chemicals needed for healing. Vitamins and minerals can be obtained through healthy foods in your diet and by taking a multiple vitamin supplement. Vitamin C is essential for collagen synthesis. Collagen and fibroblasts compose the basis for the structure of a new wound bed. Also, a deficiency of Vitamin C prolongs the healing time and contributes to reduced resistance to infection. Laboratory: We will obtain wound cultures to determine bacterial load. She will be treated accordingly. Wound cultures are collected to assess level of bacterial bio-burden. Excessive bio-burden can result in inflammatory and proliferative phase stagnation as well as compromise of normal wound healing physiology. Bacterial proliferation, biofilm production, critical colonization and the development of resistant organism can lead to wound infection, wound deterioration and devastating tissue loss. Knowing the organism that populated the wound can help direct therapy, particularly anti-microbial dressing choices. Vascular Evaluation: PVRs for both lower extremities to evaluate for arterial insufficiency completed. Pt advised to see Dr. Tavo Mcnair of Vascular Surgery for further evaluation given her underlying PVD to help with wound healing. Follow-up to be determined - call to schedule appointment depending on if she goes into the hospital. Given that the patient is extremely somnolent and her lower extremities are significantly swollen and weeping, she needs further evaluation and is now being transferred via wheelchair to the ED by our RN. Luis Simons CNP Charge Capture: [id number] Kayla Childs Ma 05/19/2018 2:05 PM Addendum Nursing Note Dx: Venous insufficiency with ulcer with secondary lymphedema See provider note for wound description and measurements Patient has removed compression wraps yesterday at home. Dressing removed with dakins Saline 0.9% solution applied to all wounds In the presence and direction of the provider wound care as written below: Photos taken 1. Right posterior-lateral distal leg: Wounds washed with saline solution x 10 cc. Pat dry. Calcium Alginate AG applied to the wound bed. Dry max and abd pads applied followed by Kerlix. 2 tape to secure . L: 8.7 cm x W: 12.8 cm x D: 0.5 cm 2. Right medial distal leg: Wounds washed with saline solution x 10 cc. Pat dry. Calcium Alginate AG applied to the wound bed. Dry max and abd pads applied followed by Kerlix. 2 tape to secure . L: 4.2 cm x W: 4.8 cm x 1.3 cm 3. Right lateral sole: Remains closed. 6x6 triact foam applied to protect heal. Measurements: Right Calf: 60 cm Right Ankle: 34.5 cm Left Calf: 54 cm Left Ankle: 37 cm PLAN: Follow up to be determined- call to schedule appointment depending on if she goes into the hospital Elevate your legs above your heart to decrease your swelling Patient requires a 45 minute visit EDUCATION PER PROVIDER: The patient/family was instructed how to wash the wound(s) with dial soap, rinsing with water, AND patting dry. Visual demonstration on how to apply the dressing. Signs AND symptoms of infection were reviewed: Increased redness, swelling, pain, green, yellow drainage, fever or chills all would need to be evaluated by a Physician. Patient received typed homegoing wound care instructions and has expressed intent to comply. Kayla Childs Ma 05/19/2018 2:05 PM Signed WOUND CARE INSTRUCTIONS Wound location: Right lower leg multiple wounds - Venous insufficiency bilateral lower legs 1. Wash your hands with soap and water before and after wound care. 2. Gather all supplies needed. 3. Wash wound with Dial soap and water. Pat dry. Moisturize intact skin with vitamin AANDD ointment 4. Apply calcium alginate ag to the wound base. 5. Cover with Dry Max and ABD pads 6. Secure with kerlix and tape. 7. Change dressing daily. Left Leg: Wash leg with dial soap and water. Apply Vitamin AANDD to lower extremity Pad and protect heel To give your wound the best chance to heal: - Eat three balanced meals daily focusing on the protein - Control swelling by elevating the extremity above your heart - exercise the extremity - Complete your wound care instructions - Vitamin C 500 mg twice daily - Multiple Vitamin Daily - Drink a protein shake daily - continue home care Report any of the following changes to the Wound Center at [phone] or go to the Emergency Department: ? Fever or chills ? Increased drainage ? Green or yellow drainage ? Foul odor ? Increased pain ? Hardness around the wound ? Redness, warmth or swelling of the surrounding tissue ? 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 LISINOPRIL 2.5 MG TABLET Take 1 tablet by mouth every * OMEPRAZOLE 20 MG CAPSULE,LUIS MIGUEL* Take 1 capsule by mouth once * DOCUSATE SODIUM 100 MG CAPSULE Take 1 capsule by mouth once * SODIUM HYPOCHLORITE 0.125 % S* Dakin's moistened gauze packi* WARFARIN 3 MG TABLET Take 1 tablet by mouth daily * Patient taking differently: Take 3 mg by mouth once daily* GABAPENTIN 300 MG CAPSULE Take 1 capsule by mouth twice* VITAMIN C ORAL Take 1 tablet by mouth twice * SILVER SULFADIAZINE 1 % TOPIC* Apply to leg wounds as direct* X ZINC SULFATE 220 MG TABLET Take 1 tablet by mouth once d* ACETAMINOPHEN 500 MG TABLET Take 1,000 mg by mouth every * ASPIRIN 81 MG TABLET,DELAYED * Take 81 mg by mouth every jean* MULTIVITAMIN-IRON 9 MG-FOLIC * Take 1 tablet by mouth once d* LEVOTHYROXINE 100 MCG TABLET Take 1 tablet by mouth once d* COMPOUNDED PRESCRIPTION Calcium Alginate 4x4 Dressing* Problem List As Of Date 05/19/2018 Noted Resolved Gastroesophageal reflux disease without esophag*INVALID FOR* Chronic atrial fibrillation (HCC) [I48.2] INVALID FOR* Priority: B More... Pure hypercholesterolemia [E78.00] Hypertension [I10] Priority: D Acquired hypothyroidism [E03.9] Priority: F CAD (coronary artery disease) [I25.10] More... 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 More... More... Respiratory failure with hypoxia (HCC) [J96.91] INVALID FOR* Priority: Severe Heart failure with preserved ejection fraction *INVALID FOR* Priority: A More... More... Requires continuous at home supplemental oxygen*INVALID FOR*01/20/2018 More... Adjustment disorder with depressed mood [F43.21]INVALID FOR* Constipation [K59.00] INVALID FOR* Leg ulcer, right, with fat layer exposed (HCC) *INVALID FOR* Venous stasis ulcer of right lower leg with melissa*INVALID FOR* Priority: A More... Venous stasis ulcer (HCC) [I83.009, L97.909] INVALID FOR* Priority: A Anticoagulation goal of INR 2 to 3 [Z51.81, Z79*INVALID FOR* Priority: C More... Class 2 obesity in adult [E66.9] INVALID FOR* Priority: M More... Hypotension [I95.9] INVALID FOR* Priority: D More... Pressure injury of skin, stage 2 [L89.92] INVALID FOR* Priority: E More... H/O noncompliance with medical treatment, prese*INVALID FOR* Priority: E More... Other instructions from your clinician: WOUND CARE INSTRUCTIONS Wound location: Right lower leg multiple wounds - Venous insufficiency bilateral lower legs 1. Wash your hands with soap and water before and after wound care. 2. Gather all supplies needed. 3. Wash wound with Dial soap and water. Pat dry. Moisturize intact skin with vitamin AANDD ointment 4. Apply calcium alginate ag to the wound base. 5. Cover with Dry Max and ABD pads 6. Secure with kerlix and tape. 7. Change dressing daily. Left Leg: Wash leg with dial soap and water. Apply Vitamin AANDD to lower extremity Pad and protect heel To give your wound the best chance to heal: - Eat three balanced meals daily focusing on the protein - Control swelling by elevating the extremity above your heart - exercise the extremity - Complete your wound care instructions - Vitamin C 500 mg twice daily - Multiple Vitamin Daily - Drink a protein shake daily - continue home care Report any of the following changes to the Wound Center at [phone] or go to the Emergency Department: ? Fever or chills ? Increased drainage ? Green or yellow drainage ? Foul odor ? Increased pain ? Hardness around the wound ? Redness, warmth or swelling of the surrounding tissue ? Color change to the wound PLAN: Follow up to be determined- call to schedule appointment depending on if she goes into the hospital PLEASE HAVE MD ADDRESS THE SWELLING AND REDNESS AROUND THE LIPS Luis Simons CNP/kgr Visit Notes: >> Kayla Childs Ma TueMay 19, 2018 1:10 PM Status: Addendum Nursing Note Dx: Venous insufficiency with ulcer with secondary lymphedema See provider note for wound description and measurements Patient has removed compression wraps yesterday at home. Dressing removed with dakins Saline 0.9% solution applied to all wounds In the presence and direction of the provider wound care as written below: Photos taken 1. Right posterior-lateral distal leg: Wounds washed with saline solution x 10 cc. Pat dry. Calcium Alginate AG applied to the wound bed. Dry max and abd pads applied followed by Kerlix. 2 tape to secure . L: 8.7 cm x W: 12.8 cm x D: 0.5 cm 2. Right medial distal leg: Wounds washed with saline solution x 10 cc. Pat dry. Calcium Alginate AG applied to the wound bed. Dry max and abd pads applied followed by Kerlix. 2 tape to secure . L: 4.2 cm x W: 4.8 cm x 1.3 cm 3. Right lateral sole: Remains closed. 6x6 triact foam applied to protect heal. Measurements: Right Calf: 60 cm Right Ankle: 34.5 cm Left Calf: 54 cm Left Ankle: 37 cm PLAN: Follow up to be determined- call to schedule appointment depending on if she goes into the hospital Elevate your legs above your heart to decrease your swelling Patient requires a 45 minute visit EDUCATION PER PROVIDER: The patient/family was instructed how to wash the wound(s) with dial soap, rinsing with water, AND patting dry. Visual demonstration on how to apply the dressing. Signs AND symptoms of infection were reviewed: Increased redness, swelling, pain, green, yellow drainage, fever or chills all would need to be evaluated by a Physician. Patient received typed homegoing wound care instructions and has expressed intent to comply. Encounter Status:Closed by LUIS SIMONS on 06/01/18 LUCIANO Observed: 05/17/2018 Status: COMPLETED Source: [place] 12:00 AM [facility] OTHER CAMPUS REPOSITORY Telephone (PLWDMR) RSOA BELTRAN ([id number]) 1935 F Date Time Provider Department 05/17/18 LUIS SIMONS ([facility]) PLWD During your visit today, we recorded the following information about you: Maribel Paz Psr 05/17/2018 3:11 PM Signed Malka called from [facility] and she said they do not have Coban 2 but it should arrive in the next day or two what could they substitute for this until it comes in or can this wait until Tuesday when patient comes in for her appointment. The Drymax has arrived and Malka also asked if there are changes to the dressing if you could send a dressing change for a couple days until they are orderded if possible. Thank you. She can be reached at [phone]. Luis Simons APRN.LOI 05/18/2018 11:09 AM Signed ----- Message from Maribel Paz Psr sent at 05/15/2018 12:56 PM EDT ----- Regarding: compression dressing Contact: You spoke to Jessica Tanner earlier regarding above patient and she stated they are not able to do Compression Dressings on patient due to not enough people are trained and she will notify the social sciences chair at The facility. She would like you to call her at [phone]. Thank you. Luis Simons APRN.LOI 05/30/2018 12:39 PM Addendum Return call made to Lelanicola Tanner on 05/18/18 and discussed alternative compression for the patient. Marlen Simons CNP Allergies As of Date: 05/17/2018 (No Known Allergies) Date Reviewed: 05/15/2018 Reviewed by: Peter Martinez) TORY Jason - Fully Assessed Reason for Visit: Wound Care [485] Prescriptions as of 05/17/2018 Sig: VITAMIN D2 ORAL Take by mouth. LISINOPRIL 2.5 MG TABLET Take 1 tablet by mouth every * OMEPRAZOLE 20 MG CAPSULE,LUIS MIGUEL* Take 1 capsule by mouth once * DOCUSATE SODIUM 100 MG CAPSULE Take 1 capsule by mouth once * SODIUM HYPOCHLORITE 0.125 % S* Dakin's moistened gauze packi* WARFARIN 3 MG TABLET Take 1 tablet by mouth daily * Patient taking differently: Take 3 mg by mouth once daily* GABAPENTIN 300 MG CAPSULE Take 1 capsule by mouth twice* VITAMIN C ORAL Take 1 tablet by mouth twice * SILVER SULFADIAZINE 1 % TOPIC* Apply to leg wounds as direct* ACETAMINOPHEN 500 MG TABLET Take 1,000 mg by mouth every * ASPIRIN 81 MG TABLET,DELAYED * Take 81 mg by mouth every jean* MULTIVITAMIN-IRON 9 MG-FOLIC * Take 1 tablet by mouth once d* LEVOTHYROXINE 100 MCG TABLET Take 1 tablet by mouth once d* COMPOUNDED PRESCRIPTION Calcium Alginate 4x4 Dressing* Problem List As Of Date 05/17/2018 Noted Resolved Gastroesophageal reflux disease without esophag*INVALID FOR* Chronic atrial fibrillation (HCC) [I48.2] INVALID FOR* Priority: B More... Pure hypercholesterolemia [E78.00] Hypertension [I10] Priority: D Acquired hypothyroidism [E03.9] Priority: F CAD (coronary artery disease) [I25.10] More... 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 More... More... Respiratory failure with hypoxia (HCC) [J96.91] INVALID FOR* Priority: Severe Heart failure with preserved ejection fraction *INVALID FOR* Priority: A More... More... Requires continuous at home supplemental oxygen*INVALID FOR*01/20/2018 More... Adjustment disorder with depressed mood [F43.21]INVALID FOR* Constipation [K59.00] INVALID FOR* Leg ulcer, right, with fat layer exposed (HCC) *INVALID FOR* Venous stasis ulcer of right lower leg with melissa*INVALID FOR* Priority: A More... Venous stasis ulcer (HCC) [I83.009, L97.909] INVALID FOR* Priority: A Anticoagulation goal of INR 2 to 3 [Z51.81, Z79*INVALID FOR* Priority: C More... Class 2 obesity in adult [E66.9] INVALID FOR* Priority: M More... Hypotension [I95.9] INVALID FOR* Priority: D More... Pressure injury of skin, stage 2 [L89.92] INVALID FOR* Priority: E More... H/O noncompliance with medical treatment, prese*INVALID FOR* Priority: E More... Encounter Status:Closed by TRACY ALAS on 05/19/18 POTASSIUM Collected: 05/16/2018 Status: F Source: [place] 6:45 AM [facility] REPOSITORY Order Comment: 303-2 TYPE CODE TESTS RESULT OUT OF RANGE REFERENCE UNITS LAB L501.5600 3.5-5.1 mmol/L Normal K 4.7 Performed By: #### [id number] #### [facility] [place] [address], [address] PROGRESS Observed: 05/15/2018 Status: COMPLETED Source: [facility] 3:00 PM CL[facility] OTHER CAMPUS REPOSITORY HNO ID: [id number] Author: Luis Rodirguez) Carla Service: (none) Author Type: Nurse Practitioner Type: Progress Notes Filed: 05/26/2018 6:46 AM Note Text: DATE OF VISIT: 05/15/2018 REASON FOR VISIT: Non-healing lower extremity wound. HISTORY OF PRESENT ILLNESS: Rosa Beltran is a 81 year old female who presents to the [facility] for further evaluation and management of a non-healing leg wound. She has a past medical history significant for atrial fibrillation on Coumadin, coronary artery disease,?COPD, hypertension, dyslipidemia and CHF.?Patient has felt mildly short of breath over the past month. ?Increase with exertion and lying flat. She is on 40 mg of Lasix twice a day. She still is urinating appropriately. She has not had any chest pain or palpitations. ?Fever, chills, or sweats. ?No productive cough. ?No wheezing. Upon taking patients vitals, her SPO2 level was from 76% - 85%. Patient stated she had shortness of breath. She was unable to finish her sentences without catching her breath. The tips of her fingers were cyanotic. Patient was sent to the ER for further evaluation. Tiffanie BARBOSA wheeled patient to the ER. INTERVAL HISTORY: Patient was sent tot he ED during her previous visit due to low oxygenation. She is now on 2 L of oxygen at all times. She denies any breathing difficulty at this time. She is an 81 year old white female with a long-standing history of swelling in her lower extremities secondary to lymphedema. Approximately 2 years ago, she sustained a fracture to her right ankle, requiring surgical intervention. The operative site became infected, and required prolonged treatment and eventually a skin graft for complete wound closure. As a result, the patient's ambulatory capacity has been impaired. Furthermore, she is morbidly obese which limits her ambulation. The patient leads a relatively sedentary lifestyle and requires a walker for ambulation. She spends a great part of her day in a sitting position. She sleeps with the head of the bed elevated. Swelling in her lower extremities has been on-going for many years. The patient has undergone a battery of diagnostic tests. A non-invasive lower extremity arterial study in December 2016 reveals normal- ankle brachial indices, bilaterally. Venous doppler examination on 01/14 reveals incompetence of the great saphenous veins, bilaterally. There is also incompetence of the small saphenous veins, bilaterally and the right accessory saphenous vein. At present, she has three wounds, 2 on the right distal leg and the other is on the left posterior calf. The left leg wound has been present for over a year and was managed with silver alginate, NPWT, Santyl, serial sharp wound debridements, compression therapy using Surepress and compression pumps. Patient's wound cultures over the past several months have grown out Enterobacter cloacae, MRSA, coag-staph aureus, and in January grew out Pseudomonas, managed with oral antibiotics. IIn July of this year, she developed a new wound on the right lateral distal leg, then in July, she experience cellulitis of both legs requiring hospitalization. In the last year, she has been followed by Dr. Jaskaran Chance at the [facility]. It was felt that her home support system was inadequate and that she may not have the resources in her home environment to appropriately care for her needs. In this regard, a geriatric social work professor consultation had been recommended on several occassions, but patient apparently insisted on remaining in her home environment despite that there was thought that is may be less than optimal. The patient is here at the [facility] for a second opinion regarding management of the abovementioned bilateral lower extremity wounds. She offers no other complaints. She denies any fevers, chills, wound-related pain or other related symptoms. 02/10/18 Patient presents for follow-up. There is one wound remaining. Patient has increased drainage (green-tinged). There is significant maceration to the periwound skin. Patient denies any wound purulence, fevers, chills. To date, wounds have been managed with sharp debridement, collagen, compression therapy and nutritional support. She offers no new complaints. The edema in her lower extremities is well-controlled. She denies any fever, chills or other related symptoms. 03/08/18 Patient here for a wound check. She continues to have significant maceration to her right leg wound area. There has been some oozing partly because of increased edema to her lowe extremities. Advised patient to follow-up with her PCP for further edema management. Patient does have a history of CHF, venous incompetency and PAD involving the right lower extremity. His right leg wound is currently managed with collagen, mild compression, sharp debridement, leg elevation as well as nutritional support. She denies fever or chills. PAST MEDICAL HISTORY Diagnosis Date - Acquired hypothyroidism - Acute respiratory failure with hypoxia (HCC) 09/30/2017 - Atrial fibrillation ([facility]) - CAD (coronary artery disease) Dr. Brenda Awan Hts, Promus element KIMMY LAD 11/20/2012, Stress test 04/2014 inferoapical reversible ischemia,small LVEF 48- 50%, LHC 12/2014 L main-normal, LAD widely patent, Cx diffuse mild luminal irregularities with 80%focal stenosis distal, RCA dominant with minimal luminal irregularities. 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 - Pure hypercholesterolemia - Rheumatoid arthritis (HCC) 2007 - Sleep apnea - Stented coronary artery 12/29/2016 PAST SURGICAL HISTORY Procedure Laterality Date - CC CORONARY STENT 11/20/2012 KIMMY LAD - CC CORONARY STENT 12/20/2014 KIMMY, Cfx - SECTION HX - COLONOSCOPY 06/10/2017 [facility], Nonspecific cecal ulcer - GASTRIC BYPASS HX 1986 - HERNIA REPAIR HX 1987; 1989 - PAST SURGICAL HISTORY OF Right 09/2015 right tibia fracture ORIF - PAST SURGICAL HISTORY OF Right 01/20/2016 Removal of hardware, right tibia - TOTAL KNEE REPLACEMENT Right 2003 [facility]. - TOTAL KNEE REPLACEMENT Left 2004 [facility]. MEDICATIONS ergocalciferol, vitamin D2, (DRISDOL) 50,000 unit capsule Take 1 capsule by mouth once each week. levothyroxine (LEVOXYL) 100 mcg tablet Take 1 tablet by mouth once daily. Take on empty stomach. For Thyroid. gabapentin (NEURONTIN) 300 mg capsule Take 1 capsule by mouth twice daily. metoprolol tartrate, short acting, (LOPRESSOR) 50 mg tablet TAKE ONE TABLET BY MOUTH TWICE DAILY furosemide (LASIX) 40 mg tablet Take 1 tablet by mouth twice daily. COMPOUNDED PRESCRIPTION Calcium Alginate 4x4 Dressing, change daily Dx: Blister left leg with infection S80.822A, L08.9; Lymphedema I89.0. Wound dimensions: 4 x 3 cm acetaminophen (TYLENOL) 500 mg tablet Take 1,000 mg by mouth every 8 hours as needed. aspirin, enteric coated (ASPIRIN, ENTERIC COATED) 81 mg EC tablet Take 81 mg by mouth once daily. warfarin (COUMADIN) 1 mg tablet Take 1 mg by mouth daily as directed. Take 1 tablet (1mg) by mouth once daily. Take with 1 x 3mg tablet to total 4mg by mouth once daily. warfarin (COUMADIN) 3 mg tablet Take 3 mg by mouth daily as directed. Take 1 tablet (3mg) by mouth once daily. Take with 1 x 1mg tablet to total 4mg by mouth once daily. lisinopril (ZESTRIL) 2.5 mg tablet Take 2.5 mg by mouth once daily. omeprazole (PRILOSEC) 20 mg capsule Take 20 mg by mouth once daily. spironolactone (ALDACTONE) 25 mg tablet Take 25 mg by mouth once daily. docusate sodium (COLACE) 100 mg capsule Take 100 mg by mouth once daily as needed. therapeutic multivitamin w/ iron (THERAGRAN-M) 9 mg iron-400 mcg tablet Take 1 tablet by mouth once daily. ALLERGIES No Known Allergies FAMILY HISTORY: Patient's father in his 70s with a history of arthritis. Her mother at the age of 90 with a history of arthritis. SOCIAL HISTORY Patient is a , lives alone, but has a son nearby. She has 6 children. Substance Use Topics - Smoking status: Passive Smoke Exposure - Never Smoker - Smokeless tobacco: Never Used Comment: smoked for 40 years - Alcohol use No REVIEW OF SYSTEM: PAIN ASSESSMENT: Negative for pain, history of chronic pain, or current treatment for a chronic pain condition. GENERAL: No weight loss, malaise or fevers HEENT: Negative for frequent or significant headaches, No changes in hearing or vision, no nose bleeds or other nasal problems NECK: Negative for lumps, goiter, pain and significant neck swelling RESPIRATORY: Negative for cough, hemoptysis, wheezing, positive for shortness of breath CARDIOVASCULAR: Negative for chest pain,palpitations; has chronic leg swelling GI: No nausea, vomiting, or diarrhea : No history of dysuria, frequency or incontinence MUSCULOSKELETAL: Negative for joint pain or swelling, back pain or muscle pain SKIN: As per HPI. Negative for any other lesions, rash, and itching PSYCH: Negative for sleep disturbance, mood disorder and recent psychosocial stressors HEMATOLOGY/LYMPHOLOGY: Negative for prolonged bleeding, bruising easily or swollen nodes ENDOCRINE: Negative for cold or heat intolerance, polyuria, polydipsia and goiter NEURO: No history of headaches, syncope, paralysis, seizures or tremors 05/15/18 1500 BP: 130/70 Pulse: 75 Resp: 19 Temp: 36.8 ?C (97.8 ?F) TempSrc: Oral SpO2: 94% Weight: 88.1 kg (194 lb 4.8 oz) PHYSICAL EXAMINATION: HEENT: PERRLA , sclera non-icteric, EOM intact, mucous membrane moist, pink and w/o lesions Comments: Neck: Supple, no bruit, no masses, trachea midline Comments: Chest: Lungs clear to auscultation, no accessory muscle use for respiration Comments: Heart: Regular rate/rhythm, normal S1,S2, no murmur, rubs or gallops Comments: Abdomen: Soft, non-tender, non-distended, + bowel sounds, no bruit, no organomegaly Comments: Extremity: Dorsalis pedis : Present (Y) Absent Diminished Doppler Posterior Tibialis: Present (Y) Absent Diminished Doppler Capillary Refill: < 3 sec. (Y) > 3 sec. 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 10/14/17 WBC 8.4, Hgb 12.2, Hct 38.5, PLT 211, Glu 91, BUN 24, Cr 0.88, Na 136, K 4.7, Cl 100, Albumin 3.6, Total protein 9.1 11/04/17 Venous Doppler Study Bilateral Lower Extremities IMPRESSION RIGHT SIDE - DEEP VEINS Negative for acute deep vein thrombosis in vessels visualized. Positive for valvular incompetency in the common femoral vein and femoral vein. Lymph node noted, within the groin, measuring 2.75 x 2.71 x .809cm. Cystic structure noted, within the popliteal fossa, measuring 2.17 x 2.67 x 1.49cm. ? RIGHT SIDE - SUPERFICIAL VEINS Positive for valvular incompetency in the great saphenous vein. REFLUX ONLY NOTED AT PROXIMAL THIGH. Vessel becomes tortuous branching from proximal to distal calf. The anterior lateral branch is negative for incompetency. Positive for valvular incompetency in the small saphenous vein. REFLUX ONLY NOTED AT DISTAL CALF. LEFT SIDE - DEEP VEINS Negative for acute deep vein thrombosis in vessels visualized. Positive for valvular incompetency in the femoral vein at the mid thigh. LEFT SIDE - SUPERFICIAL VEINS Positive for valvular incompetency in the great saphenous vein. REFLUX ONLY NOTED AT MID CALF. Negative for valvular incompetency in the small saphenous vein. No previous scans for comparison; however, chronic appearing superficial thrombophlebitis in the great saphenous vein at the distal calf. ? Technologist: Cleo Magdaleno T Ordering physician: Luis Simons ? Interpreting physician: Vishal Torres MD, RVT ? 01/24/17 Segmental arterial doppler study bilateral lower extremities Findings: NIMISHA 1.04 to the right and 1.0 to the left. Based upon the findings of this resting non-invasive lower extremity arterial study, arterial perfusion to ankle level appears to be relatively normal bilaterally. Triphasic and biphasic waveforms were noted at ankle level bilaterally. Resting ankle-brachial indices were bilaterally normal. ? 08/01/17 X-Ray 3-View Right Ankle Impression: There is prior open reduction internal fixation of the fibula which appears to be relatively intact allowing for advanced bony osteopenia. There is an irregular appearance of the lateral side distal tibia which is compatible with a prior fracture for which a new fracture on the lateral side is not excluded. The fracture could be potentially be associated with new trauma or potentially infection. Recommend consideration for follow-up study such as MRI or potentially three-phase bone scan. ? Flattened appearance of the arch of the foot with degenerative change of the tarsotarsal joints. ? Diffuse soft tissue swelling. ? Electronically Signed: Kelly Camarena MD at 20:15 EDT Tel , Service support , ? 10/14/17 XR 2 View Tib/Fib (Left) Findings: Left tibia-fibula: Tibial component of the joint prosthesis noted without associated abnormal lucency. No acute fracture or bony destruction. Right tibia and fibula: Plate and screw fixation remote distal fibular fracture. There is also remote tibial fracture with residual posterior angulation. Ghost tracks from previous tibial hardware. Tibial component of the joint prosthesis noted without associated abnormal lucency. No acute fracture or bony destruction. ? Stereotype Finisher: PSCB ? Transcribe Date/Time: Oct 14 2017 ?4:02P Dictated by : ZURDO SANTOS MD ? 10/14/17 XR 2 View Tib/Fib (Right) Findings: Left tibia-fibula: Tibial component of the joint prosthesis noted without associated abnormal lucency. No acute fracture or bony destruction. Right tibia and fibula: Plate and screw fixation remote distal fibular fracture. There is also remote tibial fracture with residual posterior angulation. Ghost tracks from previous tibial hardware. Tibial component of the joint prosthesis noted without associated abnormal lucency. No acute fracture or bony destruction. ? Stereotype Finisher: DWIGHT ? Transcribe Date/Time: Oct 14 2017 ?4:02P Dictated by : ZURDO SNATOS MD ? 10/14/17 XR 2 View Tib/Fib (Left) Findings: Left tibia-fibula: Tibial component of the joint prosthesis noted without associated abnormal lucency. No acute fracture or bony destruction. Right tibia and fibula: Plate and screw fixation remote distal fibular fracture. There is also remote tibial fracture with residual posterior angulation. Ghost tracks from previous tibial hardware. Tibial component of the joint prosthesis noted without associated abnormal lucency. No acute fracture or bony destruction. WOUND ASSESSMENT: Wound Number: 1 First Assessed Date: 10/14/17 Pre-existing: YES Location: Leg Orientation: Right, Lateral and Distal Wound Etiology: Venous Depth of Tissue Injury (Non-pressure): Full Thickness Diabetic Wounds:N/A Pressure Injury: N/A Pre-debridement Measurements Initial (First Visit): 3.5 cm length x 4.0 cm width x 0.5 cm depth Pre-debridement Measurements Initial (Current Visit): 6.0 cm length x 5.4 cm width x 1.6 cm depth Post Debridement Measurement (Current): N/A % Healing Rate/#Weeks: - 7.4 % -- Week 20 Wound Bed (Post-debridement): 100% red % of Healthy tissue: Undermining: No Tunneling: No Tendon/bone exposed: NO Wound Edge/Margins: Irregular wound edges and Edge attached to base Periwound Tissue: Mild erythema, Wet (macerated), and Edema Exudate Amount:Moderate Consistency:Serous/Green Odor:Minimal Infection/Critical Colonization Localized s/s: Non-healing and Increased exudate Systemic s/s: None Local/systemic Rx: None Wound Healing Status: Chronic Clinically presenting as: Stalled wound healing Current topical treatment: Collagen Wound Number: 2 First Assessed Date: 10/14/17 Pre-existing: YES Location: Leg Orientation: Right, Medial and Distal Wound Etiology: Surgical Depth of Tissue Injury (Non-pressure): Partial Thickness Diabetic Wounds:N/A Pressure Injury: N/A Pre-Measurements Initial (First Visit): 0.5 cm length x 0.4 cm width x 0.1 cm depth Post Measurement (Current): Epithelialized % Healing Rate/#Weeks: Week 1 -- Healed Wound Bed (Post-debridement): % of Healthy tissue: Undermining: No Tunneling: No Tendon/bone exposed: NO Wound Edge/Margins: Normal, intact, Irregular wound edges and Edge attached to base Periwound Tissue: Normal, intact,uninvolved tissue and Dry,flaky Exudate Amount: None Consistency: None Odor:None Infection/Critical Colonization Localized s/s: None and Edema Systemic s/s: None Local/systemic Rx: None Wound Healing Status: Chronic Clinically presenting as: Healed Current topical treatment: Iodoflex Wound Number: 4 First Assessed Date: 03/08/18 Pre-existing: YES Location: Leg (calf) Orientation: Right anterior ace Wound Etiology: Venous Depth of Tissue Injury (Non-pressure): Full Thickness Diabetic Wounds:N/A Pressure Injury: N/A Pre-Measurements Initial (First Visit): 2.0 cm length x 2.5 cm width x 0.1 cm depth Post Measurement (Current): N/A % Healing Rate/#Weeks: New wound today Wound Bed (Post-debridement): N/A % of Healthy tissue: Undermining: No Tunneling: No Tendon/bone exposed: NO Wound Edge/Margins: Well-defined wound edges and Edge attached to base Periwound Tissue: [employer], dry and intact, No fluctuance, induration or advancing soft tissue necrosis or ischemia Exudate: Minimal Consistency: Serous Odor:None Infection/Critical Colonization: N/A Localized s/s: None Systemic s/s: None Local/systemic Rx: None Wound Healing Status: New Clinically presenting as: Stable Current topical treatment: None Wound Number: 5 First Assessed Date: 03/08/18 Pre-existing: YES Location: Foot Orientation: Right lateral Wound Etiology: Venous Depth of Tissue Injury (Non-pressure): Full Thickness Diabetic Wounds:N/A Pressure Injury: N/A Pre-Measurements Initial (First Visit): 1.5 cm length x 1.0 cm width x 0.1 cm depth Post Measurement (Current): N/A % Healing Rate/#Weeks: New wound today Wound Bed (Post-debridement): N/A % of Healthy tissue: Undermining: No Tunneling: No Tendon/bone exposed: NO Wound Edge/Margins: Well-defined wound edges and Edge attached to base Periwound Tissue: [employer], dry and intact, No fluctuance, induration or advancing soft tissue necrosis or ischemia Exudate: Minimal Consistency: Serous Odor:None Infection/Critical Colonization: N/A Localized s/s: None Systemic s/s: None Local/systemic Rx: None Wound Healing Status: New Clinically presenting as: Stable Current topical treatment: None Wound Number: 3 First Assessed Date: 10/14/17 Pre-existing: YES Location: Leg (calf) Orientation: Left and Posterior Wound Etiology: Venous Depth of Tissue Injury (Non-pressure): Full Thickness Diabetic Wounds:N/A Pressure Injury: N/A Pre-Measurements Initial (First Visit): 1.3 cm length x 1.2 cm width x 0.1 cm depth Post Measurement (Current): Epithelialized % Healing Rate/#Weeks: 100 % -- Week 5 Wound Bed (Post-debridement): 100% [employer] % of Healthy tissue: Undermining: No Tunneling: No Tendon/bone exposed: NO Wound Edge/Margins: Well-defined wound edges and Edge attached to base Periwound Tissue: [employer], dry and intact, No fluctuance, induration or advancing soft tissue necrosis or ischemia Exudate: Nonr Consistency: None Odor:None Infection/Critical Colonization: N/A Localized s/s: None Systemic s/s: None Local/systemic Rx: None Wound Healing Status: Chronic Clinically presenting as: Healed Current topical treatment: Collagen IMPRESSION: 1. Non-healing right and left lower extremity wounds ( #1 and #3) in the setting of chronic venous insufficiency with secondary lymphedema. 2. Recurrent right medial leg wound s/p STSG in the setting of chronic edema. 3. Significant lower extremity edema secondary to underlying chronic venous insufficiency with secondary lymphedema. 4. Multiple risk factors or co-morbidities that may contribute to wound healing difficulties include hypothyroid disease, chronic atrial fibrillation on anticoagulation, coronary artery disease, COPD, dyslipidemia, hypertension, muscle weakness, osteoarthritis, GERD, depression and obesity. 5. Wound cultures positive for Enterobacter cloacae and Staph aureus most likely increased colonization. 6. Very good glucose control based on recent HgbA1c. 7. Zinc insufficiency ( precursor for collagen synthesis. 8. No significant arterial disease based on recent PVRs. 9. No evidence of osteomyelitis based on recent XRs. 10. Valvular incompetency involving the right common femoral vein , right femoral vein, right great saphenous vein, left femoral vein (mid thigh) and left great saphenous vein (mid thigh). TREATMENT PLAN: Debridement Type: Autolytic Enzymatic Mechanical Surgical Sharp (N) Other: Wound Dressing: See Nursing Notes for details. . Topical Rx: Wound # 1Right lateral distal leg: Wounds washed with dakins solution 0.125%. Pat dry. Dakins moistened gauze 0.125% was packed in to the wound bed. Equal parts of hydrocortisone cream 1% and zinc to all excoriated areas. Site covered with dry max, abd pads and kerlix wrap. Tape to secure. 6 ankit wrap applied from behind the toes to 1 below the knee. Change dressings daily. Left lower leg: Moisturized with vitamin AANDD ointment. 6 ankit applied from behind the toes to 1 below the knee. 5. Right anterior ace: (NEW) L: 2.0 cm x W: 2.5 cm x D: 0.1 cm. Equal parts of hydrocortisone cream 1% and zinc to all excoriated areas. Site covered with dry max, 6. Right lateral foot(NEW: L: 1.5 cm x W: 1.0 cm x D: 0.1 cm. Equal parts of hydrocortisone cream 1% and zinc to all excoriated areas. Site covered with dry max, Equal parts of hydrocortisone cream 1% and zinc to all excoriated areas. Area padded to protect with abd's. Systemis Rx: Begin: Doxycycline to prevent reoccurant [id number] mg PO BID x 14 days then 7 days off. Indefinitely CirAids to be ordered for maintenance therapy. Use pneumatic compression pumps twice daily with 40-50 mmhg compression Nutritional Support: MVI, Zinc Supplement and Protein Supplement Patient is instructed to continue a healthy, well-balanced diet for nutritional support for optimal healing. Protein is the most important nutrient for wound healing. Eating adequate amounts of protein allows the body to create new cells and chemicals to heal the wound, and increases the body?s ability to fight infection. Eating high protein foods daily is recommended such as: lean meats, fish, poultry, cheese, milk, yogurt, eggs and legumes. Vitamins and minerals provide a full range of nutrients for wound healing. It can help jump start the body's production of cells and chemicals needed for healing. Vitamins and minerals can be obtained through healthy foods in your diet and by taking a multiple vitamin supplement. Vitamin C is essential for collagen synthesis. Collagen and fibroblasts compose the basis for the structure of a new wound bed. Also, a deficiency of Vitamin C prolongs the healing time and contributes to reduced resistance to infection. Laboratory: We will obtain wound cultures to determine bacterial load. She will be treated accordingly. Wound cultures are collected to assess level of bacterial bio-burden. Excessive bio-burden can result in inflammatory and proliferative phase stagnation as well as compromise of normal wound healing physiology. Bacterial proliferation, biofilm production, critical colonization and the development of resistant organism can lead to wound infection, wound deterioration and devastating tissue loss. Knowing the organism that populated the wound can help direct therapy, particularly anti-microbial dressing choices. Vascular Evaluation: PVRs for both lower extremities to evaluate for arterial insufficiency completed. Pt advised to see Dr. Tavo Mcnair of Vascular Surgery for further evaluation given her underlying PVD to help with wound healing. Follow-up is scheduled in 1 week, sooner with any concerns or worsening symptoms. Luis Simons CNP Charge Capture: [id number]; [id number] (x0) CNOV Observed: 05/15/2018 Status: COMPLETED Source: [facility] 3:00 PM [facility] OTHER C[facility] REPOSITORY Office Visit ([facility]) RSOA BELTRAN ([id number]) 1935 F Date Time Provider Department 05/15/18 3:00 PM LUIS SIMONS, (LOI) [facility] During your visit today, we recorded the following information about you: Temperature Pulse Respiration Blood pressure 97.9 degrees 75/minute 17/minute 148/75 Luis Simons APRN.CNP 08/17/2018 10:55 AM Addendum DATE OF VISIT: 05/15/2018 REASON FOR VISIT: Non-healing lower extremity wound. HISTORY OF PRESENT ILLNESS: Mchenrynicola Beltran is a 81 year old female who presents to the [facility] for further evaluation and management of a non-healing leg wound. She has a past medical history significant for atrial fibrillation on Coumadin, coronary artery disease,?COPD, hypertension, dyslipidemia and CHF.?Patient has felt mildly short of breath over the past month. ?Increase with exertion and lying flat. She is on 40 mg of Lasix twice a day. She still is urinating appropriately. She has not had any chest pain or palpitations. ?Fever, chills, or sweats. ?No productive cough. ?No wheezing. Upon taking patients vitals, her SPO2 level was from 76% - 85%. Patient stated she had shortness of breath. She was unable to finish her sentences without catching her breath. The tips of her fingers were cyanotic. Patient was sent to the ER for further evaluation. Tiffanie BARBOSA wheeled patient to the ER. INTERVAL HISTORY: Patient was sent tot he ED during her previous visit due to low oxygenation. She is now on 2 L of oxygen at all times. She denies any breathing difficulty at this time. She is an 81 year old white female with a long-standing history of swelling in her lower extremities secondary to lymphedema. Approximately 2 years ago, she sustained a fracture to her right ankle, requiring surgical intervention. The operative site became infected, and required prolonged treatment and eventually a skin graft for complete wound closure. As a result, the patient's ambulatory capacity has been impaired. Furthermore, she is morbidly obese which limits her ambulation. The patient leads a relatively sedentary lifestyle and requires a walker for ambulation. She spends a great part of her day in a sitting position. She sleeps with the head of the bed elevated. Swelling in her lower extremities has been on-going for many years. The patient has undergone a battery of diagnostic tests. A non-invasive lower extremity arterial study in December 2016 reveals normal-ankle brachial indices, bilaterally. Venous doppler examination on 01/14 reveals incompetence of the great saphenous veins, bilaterally. There is also incompetence of the small saphenous veins, bilaterally and the right accessory saphenous vein. At present, she has three wounds, 2 on the right distal leg and the other is on the left posterior calf. The left leg wound has been present for over a year and was managed with silver alginate, NPWT, Santyl, serial sharp wound debridements, compression therapy using Surepress and compression pumps. Patient's wound cultures over the past several months have grown out Enterobacter cloacae, MRSA, coag-staph aureus, and in January grew out Pseudomonas, managed with oral antibiotics. IIn July of this year, she developed a new wound on the right lateral distal leg, then in July, she experience cellulitis of both legs requiring hospitalization. In the last year, she has been followed by Dr. Jaskaran Chance at the [facility] [place] [facility]. It was felt that her home support system was inadequate and that she may not have the resources in her home environment to appropriately care for her needs. In this regard, a geriatric social work professor consultation had been recommended on several occassions, but patient apparently insisted on remaining in her home environment despite that there was thought that is may be less than optimal. The patient is here at the [facility] for a second opinion regarding management of the abovementioned bilateral lower extremity wounds. She offers no other complaints. She denies any fevers, chills, wound-related pain or other related symptoms. 02/10/18 Patient presents for follow-up. There is one wound remaining. Patient has increased drainage (green-tinged). There is significant maceration to the periwound skin. Patient denies any wound purulence, fevers, chills. To date, wounds have been managed with sharp debridement, collagen, compression therapy and nutritional support. She offers no new complaints. The edema in her lower extremities is well-controlled. She denies any fever, chills or other related symptoms. 03/08/18 Patient here for a wound check. She continues to have significant maceration to her right leg wound area. There has been some oozing partly because of increased edema to her lowe extremities. Advised patient to follow-up with her PCP for further edema management. Patient does have a history of CHF, venous incompetency and PAD involving the right lower extremity. His right leg wound is currently managed with collagen, mild compression, sharp debridement, leg elevation as well as nutritional support. She denies fever or chills. 05/10/18 Patient was last seen here at the Wound Center on 03/17/18. At the time, she was found to have cellulitis of the right lower extremity and was sent to the ED for further evaluation and treatment. Subsequently, she was admitted to the hospital ans was started on broad spectrum antibiotics.Imaging showed no evidence of OM. The patient was seen by Infectious Disease and Podiatry and underwent IANDD on 03/23/18. She was discharged home on 03/24/18 with oral antibiotics and instructions for dressing changes. On 04/20/18, she presented to [facility] in [place] as she noticed worsening drainage from her right leg along with pain, increased swelling, and warmth. White count was elevated at 21,000 with a left shift. X-rays of her right leg were done, which did not show any acute changes. She was admitted to [facility] for further management. She was seen by the Podiatry Service and cultures were taken from her right leg. Per Podiatry, the wound to the right lateral leg was without any probing to bone but there was evidence of cellulitis from the ankle up to the leg below her knee on the right side. She then received a wound debridement per Podiatry. She was also followed by Infectious Disease and was treated with IV antibiotics. Upon discharge, it was switched to po cipro (500mg bid) and amoxicillin (500mg tid) - plan till 05/05/18. She was to have pressure dressing as per podiatry on the wound changed twice daily. It was felt that much of her problem was non- compliance with wound care recommendations at home. Also, during this hospital admission, she was hypotensive on her home blood pressure medications. It was felt that she was not taking her pills as prescribed and so they were adjusted.?The patient was discharged to a detention facility on 04/26/18 in stable condition. Today, the patients presents for follow-up in the Wound Center. The right leg wound has increased in size since I last saw her in February. There is significant maceration to the periwound skin and dressing was completely saturated with serous/yellow drainage. No purulence is noted. Mild odor is detected. Patient denies any recent fevers or chills. PAST MEDICAL HISTORY Diagnosis Date - Acquired hypothyroidism - Acute respiratory failure with hypoxia (HCC) 09/30/2017 - Atrial fibrillation (HCC) - CAD (coronary artery disease) Dr. Brenda Awan Hts, Promus element KIMMY LAD 11/20/2012, Stress test 04/2014 inferoapical reversible ischemia,small LVEF 48-50%, LHC 12/2014 L main-normal, LAD widely patent, Cx diffuse mild luminal irregularities with 80%focal stenosis distal, RCA dominant with minimal luminal irregularities. 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 - Pure hypercholesterolemia - Rheumatoid arthritis ([facility]) 2007 - Sleep apnea - Stented coronary artery 12/29/2016 PAST SURGICAL HISTORY Procedure Laterality Date - CC CORONARY STENT 11/20/2012 KIMMY LAD - CC CORONARY STENT 12/20/2014 KIMMY, Cfx - SECTION HX - COLONOSCOPY 06/10/2017 [facility], Nonspecific cecal ulcer - GASTRIC BYPASS HX 1986 - HERNIA REPAIR HX 1987; 1989 - PAST SURGICAL HISTORY OF Right 09/2015 right tibia fracture ORIF - PAST SURGICAL HISTORY OF Right 01/20/2016 Removal of hardware, right tibia - TOTAL KNEE REPLACEMENT Right 2003 [facility] Gen. - TOTAL KNEE REPLACEMENT Left 2004 [facility]. MEDICATIONS ergocalciferol, vitamin D2, (DRISDOL) 50,000 unit capsule Take 1 capsule by mouth once each week. levothyroxine (LEVOXYL) 100 mcg tablet Take 1 tablet by mouth once daily. Take on empty stomach. For Thyroid. gabapentin (NEURONTIN) 300 mg capsule Take 1 capsule by mouth twice daily. metoprolol tartrate, short acting, (LOPRESSOR) 50 mg tablet TAKE ONE TABLET BY MOUTH TWICE DAILY furosemide (LASIX) 40 mg tablet Take 1 tablet by mouth twice daily. COMPOUNDED PRESCRIPTION Calcium Alginate 4x4 Dressing, change daily Dx: Blister left leg with infection S80.822A, L08.9; Lymphedema I89.0. Wound dimensions: 4 x 3 cm acetaminophen (TYLENOL) 500 mg tablet Take 1,000 mg by mouth every 8 hours as needed. aspirin, enteric coated (ASPIRIN, ENTERIC COATED) 81 mg EC tablet Take 81 mg by mouth once daily. warfarin (COUMADIN) 1 mg tablet Take 1 mg by mouth daily as directed. Take 1 tablet (1mg) by mouth once daily. Take with 1 x 3mg tablet to total 4mg by mouth once daily. warfarin (COUMADIN) 3 mg tablet Take 3 mg by mouth daily as directed. Take 1 tablet (3mg) by mouth once daily. Take with 1 x 1mg tablet to total 4mg by mouth once daily. lisinopril (ZESTRIL) 2.5 mg tablet Take 2.5 mg by mouth once daily. omeprazole (PRILOSEC) 20 mg capsule Take 20 mg by mouth once daily. spironolactone (ALDACTONE) 25 mg tablet Take 25 mg by mouth once daily. docusate sodium (COLACE) 100 mg capsule Take 100 mg by mouth once daily as needed. therapeutic multivitamin w/ iron (THERAGRAN-M) 9 mg iron-400 mcg tablet Take 1 tablet by mouth once daily. ALLERGIES No Known Allergies FAMILY HISTORY: Patient's father in his 70s with a history of arthritis. Her mother at the age of 90 with a history of arthritis. SOCIAL HISTORY: Patient is a , lives alone, but has a son nearby. She has 6 children. Substance Use Topics - Smoking status: Passive Smoke Exposure - Never Smoker - Smokeless tobacco: Never Used Comment: smoked for 40 years - Alcohol use No REVIEW OF SYSTEM: PAIN ASSESSMENT: Negative for pain, history of chronic pain, or current treatment for a chronic pain condition. GENERAL: No weight loss, malaise or fevers HEENT: Negative for frequent or significant headaches, No changes in hearing or vision, no nose bleeds or other nasal problems NECK: Negative for lumps, goiter, pain and significant neck swelling RESPIRATORY: Negative for cough, hemoptysis, wheezing, positive for shortness of breath CARDIOVASCULAR: Negative for chest pain,palpitations; has chronic leg swelling GI: No nausea, vomiting, or diarrhea : No history of dysuria, frequency or incontinence MUSCULOSKELETAL: Negative for joint pain or swelling, back pain or muscle pain SKIN: As per HPI. Negative for any other lesions, rash, and itching PSYCH: Negative for sleep disturbance, mood disorder and recent psychosocial stressors HEMATOLOGY/LYMPHOLOGY: Negative for prolonged bleeding, bruising easily or swollen nodes ENDOCRINE: Negative for cold or heat intolerance, polyuria, polydipsia and goiter NEURO: No history of headaches, syncope, paralysis, seizures or tremors 05/15/18 1530 BP: 130/70 Pulse: 75 Resp: 19 Temp: 36.8 ?C (97.8 ?F) TempSrc: Oral SpO2: 94% Weight: 88.1 kg (194 lb 4.8 oz) PHYSICAL EXAMINATION: HEENT: PERRLA , sclera non-icteric, EOM intact, mucous membrane moist, pink and w/o lesions Comments: Neck: Supple, no bruit, no masses, trachea midline Comments: Chest: Lungs clear to auscultation, no accessory muscle use for respiration Comments: Heart: Regular rate/rhythm, normal S1,S2, no murmur, rubs or gallops Comments: Abdomen: Soft, non-tender, non-distended, + bowel sounds, no bruit, no organomegaly Comments: Extremity: Dorsalis pedis : Present (Y) Absent Diminished Doppler: Non-compressible Posterior Tibialis: Present (Y) Absent Diminished Doppler: Non-compressible Capillary Refill: < 3 sec. (Y) > 3 sec. 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 10/14/17 WBC 8.4, Hgb 12.2, Hct 38.5, PLT 211, Glu 91, BUN 24, Cr 0.88, Na 136, K 4.7, Cl 100, Albumin 3.6, Total protein 9.1 11/04/17 Venous Doppler Study Bilateral Lower Extremities IMPRESSION RIGHT SIDE - DEEP VEINS Negative for acute deep vein thrombosis in vessels visualized. Positive for valvular incompetency in the common femoral vein and femoral vein. Lymph node noted, within the groin, measuring 2.75 x 2.71 x .809cm. Cystic structure noted, within the popliteal fossa, measuring 2.17 x 2.67 x 1.49cm. ? RIGHT SIDE - SUPERFICIAL VEINS Positive for valvular incompetency in the great saphenous vein. REFLUX ONLY NOTED AT PROXIMAL THIGH. Vessel becomes tortuous branching from proximal to distal calf. The anterior lateral branch is negative for incompetency. Positive for valvular incompetency in the small saphenous vein. REFLUX ONLY NOTED AT DISTAL CALF. LEFT SIDE - DEEP VEINS Negative for acute deep vein thrombosis in vessels visualized. Positive for valvular incompetency in the femoral vein at the mid thigh. LEFT SIDE - SUPERFICIAL VEINS Positive for valvular incompetency in the great saphenous vein. REFLUX ONLY NOTED AT MID CALF. Negative for valvular incompetency in the small saphenous vein. No previous scans for comparison; however, chronic appearing superficial thrombophlebitis in the great saphenous vein at the distal calf. ? Technologist: Cleo HOBBST Ordering physician: Luis Simons ? Interpreting physician: Vishal Torres MD, RVT ? 01/24/17 Segmental arterial doppler study bilateral lower extremities Findings: NIMISHA 1.04 to the right and 1.0 to the left. Based upon the findings of this resting non-invasive lower extremity arterial study, arterial perfusion to ankle level appears to be relatively normal bilaterally. Triphasic and biphasic waveforms were noted at ankle level bilaterally. Resting ankle- brachial indices were bilaterally normal. ? 08/01/17 X-Ray 3-View Right Ankle Impression: There is prior open reduction internal fixation of the fibula which appears to be relatively intact allowing for advanced bony osteopenia. There is an irregular appearance of the lateral side distal tibia which is compatible with a prior fracture for which a new fracture on the lateral side is not excluded. The fracture could be potentially be associated with new trauma or potentially infection. Recommend consideration for follow- up study such as MRI or potentially three-phase bone scan. ? Flattened appearance of the arch of the foot with degenerative change of the tarsotarsal joints. ? Diffuse soft tissue swelling. ? Electronically Signed: Kelly Camarena MD at 20:15 EDT Tel , Service support , ? 10/14/17 XR 2 View Tib/Fib (Left) Findings: Left tibia-fibula: Tibial component of the joint prosthesis noted without associated abnormal lucency. No acute fracture or bony destruction. Right tibia and fibula: Plate and screw fixation remote distal fibular fracture. There is also remote tibial fracture with residual posterior angulation. Ghost tracks from previous tibial hardware. Tibial component of the joint prosthesis noted without associated abnormal lucency. No acute fracture or bony destruction. ? Stereotype Finisher: DWIGHT ? Transcribe Date/Time: Oct 14 2017 ?4:02P Dictated by : ZURDO SANTOS MD ? 10/14/17 XR 2 View Tib/Fib (Right) Findings: Left tibia-fibula: Tibial component of the joint prosthesis noted without associated abnormal lucency. No acute fracture or bony destruction. Right tibia and fibula: Plate and screw fixation remote distal fibular fracture. There is also remote tibial fracture with residual posterior angulation. Ghost tracks from previous tibial hardware. Tibial component of the joint prosthesis noted without associated abnormal lucency. No acute fracture or bony destruction. ? Stereotype Finisher: DWIGHT ? Transcribe Date/Time: Oct 14 2017 ?4:02P Dictated by : ZURDO SANTOS MD ? 10/14/17 XR 2 View Tib/Fib (Left) Findings: Left tibia-fibula: Tibial component of the joint prosthesis noted without associated abnormal lucency. No acute fracture or bony destruction. Right tibia and fibula: Plate and screw fixation remote distal fibular fracture. There is also remote tibial fracture with residual posterior angulation. Ghost tracks from previous tibial hardware. Tibial component of the joint prosthesis noted without associated abnormal lucency. No acute fracture or bony destruction. WOUND ASSESSMENT: Wound Number: 1 First Assessed Date: 10/14/17 Pre-existing: YES Location: Leg Orientation: Right, Lateral and Distal Wound Etiology: Venous Depth of Tissue Injury (Non-pressure): Full Thickness Diabetic Wounds:N/A Pressure Injury: N/A Pre-debridement Measurements Initial (First Visit): 3.5 cm length x 4.0 cm width x 0.5 cm depth Pre-debridement Measurements Initial (Current Visit): 7.8 cm length x 12.0 cm width x 1.5 cm depth Post Debridement Measurement (Current): N/A % Healing Rate/#Weeks: (- 200%) -- Week 28 Wound Bed (Post-debridement): 100% red % of Healthy tissue: Undermining: No Tunneling: No Tendon/bone exposed: NO Wound Edge/Margins: Irregular wound edges and Edge attached to base Periwound Tissue: Mild erythema, Wet (macerated), and Edema Exudate Amount:Moderate Consistency:Serous/Green Odor:Minimal Infection/Critical Colonization Localized s/s: Non-healing and Increased exudate Systemic s/s: None Local/systemic Rx: None Wound Healing Status: Chronic Clinically presenting as: Stalled wound healing Current topical treatment: Collagen Wound Number: 2 First Assessed Date: 10/14/17 Pre-existing: YES Location: Leg Orientation: Right, Medial and Distal Wound Etiology: Surgical Depth of Tissue Injury (Non-pressure): Partial Thickness Diabetic Wounds:N/A Pressure Injury: N/A Pre-Measurements Initial (First Visit): 0.5 cm length x 0.4 cm width x 0.1 cm depth Post Measurement (Current): Epithelialized % Healing Rate/#Weeks: Week 1 -- Healed Wound Bed (Post-debridement): % of Healthy tissue: Undermining: No Tunneling: No Tendon/bone exposed: NO Wound Edge/Margins: Normal, intact, Irregular wound edges and Edge attached to base Periwound Tissue: Normal, intact,uninvolved tissue and Dry,flaky Exudate Amount: None Consistency: None Odor:None Infection/Critical Colonization Localized s/s: None and Edema Systemic s/s: None Local/systemic Rx: None Wound Healing Status: Chronic Clinically presenting as: Healed Current topical treatment: Iodoflex Wound Number: 4 First Assessed Date: 03/08/18 Pre-existing: YES Location: Leg (calf) Orientation: Right anterior ace Wound Etiology: Venous Depth of Tissue Injury (Non-pressure): Full Thickness Diabetic Wounds:N/A Pressure Injury: N/A Pre-Measurements Initial (First Visit): 2.0 cm length x 2.5 cm width x 0.1 cm depth Post Measurement (Current): N/A % Healing Rate/#Weeks: 100% Healed -- Week 9 Wound Bed (Post-debridement): N/A % of Healthy tissue: Undermining: No Tunneling: No Tendon/bone exposed: NO Wound Edge/Margins: Well-defined wound edges and Edge attached to base Periwound Tissue: [employer], dry and intact, No fluctuance, induration or advancing soft tissue necrosis or ischemia Exudate: None Consistency: None Odor:None Infection/Critical Colonization: N/A Localized s/s: None Systemic s/s: None Local/systemic Rx: None Wound Healing Status: Epithelialized Clinically presenting as: Healed Wound Number: 5 First Assessed Date: 03/08/18 Pre-existing: YES Location: Foot Orientation: Right lateral Wound Etiology: Venous Depth of Tissue Injury (Non-pressure): Full Thickness Diabetic Wounds:N/A Pressure Injury: N/A Pre-Measurements Initial (First Visit): 1.5 cm length x 1.0 cm width x 0.1 cm depth Post Measurement (Current): N/A % Healing Rate/#Weeks: 100% Healed -- Week 9 Wound Bed (Post-debridement): N/A % of Healthy tissue: Undermining: No Tunneling: No Tendon/bone exposed: NO Wound Edge/Margins: Well-defined wound edges and Edge attached to base Periwound Tissue: [employer], dry and intact, No fluctuance, induration or advancing soft tissue necrosis or ischemia Exudate: None Consistency: None Odor:None Infection/Critical Colonization: N/A Localized s/s: None Systemic s/s: None Local/systemic Rx: None Wound Healing Status: Epithelialized Clinically presenting as: Healed Wound Number: 3 First Assessed Date: 10/14/17 Pre-existing: YES Location: Leg (calf) Orientation: Left and Posterior Wound Etiology: Venous Depth of Tissue Injury (Non-pressure): Full Thickness Diabetic Wounds:N/A Pressure Injury: N/A Pre-Measurements Initial (First Visit): 1.3 cm length x 1.2 cm width x 0.1 cm depth Post Measurement (Current): Epithelialized % Healing Rate/#Weeks: 100 % -- Week 5 Wound Bed (Post-debridement): 100% [employer] % of Healthy tissue: Undermining: No Tunneling: No Tendon/bone exposed: NO Wound Edge/Margins: Well-defined wound edges and Edge attached to base Periwound Tissue: [employer], dry and intact, No fluctuance, induration or advancing soft tissue necrosis or ischemia Exudate: Nonr Consistency: None Odor:None Infection/Critical Colonization: N/A Localized s/s: None Systemic s/s: None Local/systemic Rx: None Wound Healing Status: Chronic Clinically presenting as: Healed Current topical treatment: Collagen Wound Number: 6 First Assessed Date: 05/10/18 Pre-existing: YES Location: Leg (calf) Orientation: Right medial Wound Etiology: Venous Depth of Tissue Injury (Non-pressure): Full Thickness Diabetic Wounds:N/A Pressure Injury: N/A Pre-Measurements Initial (First Visit): 4.4 cm length x 3.0 cm width x 1.2 cm depth Post Measurement (Current): 4.5 cm length x 3.1 cm width x 1.4 cm depth % Healing Rate/#Weeks: Recurrent wound -- initial assessment today Wound Bed (Post-debridement): 100% [employer] % of Healthy tissue: Undermining: No Tunneling: No Tendon/bone exposed: NO Wound Edge/Margins: Well-defined wound edges and Edge attached to base; Macerated edges with significant erythema Periwound Tissue: Macerated with erythema skin excoriation; no fluctuance, induration or advancing soft tissue necrosis or ischemia Exudate: Large Consistency: Serous/ yellow Odor: Mild Infection/Critical Colonization: N/A Localized s/s: None Systemic s/s: None Local/systemic Rx: None Wound Healing Status: Chronic Clinically presenting as: Recurrent wound IMPRESSION: 1. Non-healing right and left lower extremity wounds ( #1 and #6) in the setting of chronic venous insufficiency with secondary lymphedema. 2. Recurrent right medial leg wound s/p STSG in the setting of chronic edema. 3. Significant lower extremity edema secondary to underlying chronic venous insufficiency with secondary lymphedema. 4. Multiple risk factors or co-morbidities that may contribute to wound healing difficulties include hypothyroid disease, chronic atrial fibrillation on anticoagulation, coronary artery disease, COPD, dyslipidemia, hypertension, muscle weakness, osteoarthritis, GERD, depression and obesity. 5. Wound cultures positive for Enterobacter cloacae and Staph aureus most likely increased colonization. 6. Very good glucose control based on recent HgbA1c. 7. Zinc insufficiency ( precursor for collagen synthesis. 8. No significant arterial disease based on recent PVRs. 9. No evidence of osteomyelitis based on recent XRs. 10. Valvular incompetency involving the right common femoral vein , right femoral vein, right great saphenous vein, left femoral vein (mid thigh) and left great saphenous vein (mid thigh). TREATMENT PLAN: Debridement Type: Autolytic Enzymatic Mechanical Surgical Sharp (Y) Other: Wound Dressing: See Nursing Notes for details. . Topical Rx: 1. Right posterior-lateral distal leg: Wounds washed with saline solution x 30 cc. Pat dry. Calcium alginate ag packed in to the wound base. Equal parts of zinc oxide and hydrocortisone cream 1% applied to the excoritated areas prior to the double layer of zinc unna applied from behind the toes to 1 below the knee. Dry max and abd pads placed between the layers. Site covered with a profore 3 layer applied. 2. Right medial distal leg: Lido gel applied to the wound bed prior to the sq debridement. Wounds washed with saline solution x 30 cc. Pat dry. Calcium alginate ag packed in to the wound base. Equal parts of zinc oxide and hydrocortisone cream 1% applied to the excoritated areas prior to the double layer of zinc unna applied from behind the toes to 1 below the knee. Dry max and abd pads placed between the layers. Site covered with a profore 3 layer applied. 3. Right lateral sole(NEW): Closed today Unna Boot Application: zinc paste wrap applied to bilateral lower extremities followed by a Profore wrap. Profore Multiple layer Application: A 3-layer system applied to the bilateral lower extremities. A layer of cast padding, crepe bandage, light compression bandage, followed with a layer of coban and stockinet from behind the toes to 1 below the knee. Toes were warm and pink before and post application. + dorsal pedis pulse on palpation. It was demonstrated to the patient how to check for adequate circulation. If the patient exhibits a change in color to the extremity: change in temperature, increased pain, or the compression wrap becomes wet or to tight, the patient has been instructed to remove the wrap or go to the Emergency Department. Patient voices understanding with intent to comply. Left lower leg: Moisturized with vitamin AANDD ointment. 6 ankit applied from behind the toes to 1 below the knee. Systemis Rx: Completed oral Cipro and Amoxicillin on 05/05/18. Nutritional Support: MVI, Zinc Supplement and Protein Supplement Patient is instructed to continue a healthy, well-balanced diet for nutritional support for optimal healing. Protein is the most important nutrient for wound healing. Eating adequate amounts of protein allows the body to create new cells and chemicals to heal the wound, and increases the body?s ability to fight infection. Eating high protein foods daily is recommended such as: lean meats, fish, poultry, cheese, milk, yogurt, eggs and legumes. Vitamins and minerals provide a full range of nutrients for wound healing. It can help jump start the body's production of cells and chemicals needed for healing. Vitamins and minerals can be obtained through healthy foods in your diet and by taking a multiple vitamin supplement. Vitamin C is essential for collagen synthesis. Collagen and fibroblasts compose the basis for the structure of a new wound bed. Also, a deficiency of Vitamin C prolongs the healing time and contributes to reduced resistance to infection. Laboratory: We will obtain wound cultures to determine bacterial load. She will be treated accordingly. Wound cultures are collected to assess level of bacterial bio-burden. Excessive bio-burden can result in inflammatory and proliferative phase stagnation as well as compromise of normal wound healing physiology. Bacterial proliferation, biofilm production, critical colonization and the development of resistant organism can lead to wound infection, wound deterioration and devastating tissue loss. Knowing the organism that populated the wound can help direct therapy, particularly anti-microbial dressing choices. Vascular Evaluation: PVRs for both lower extremities to evaluate for arterial insufficiency completed. Pt advised to see Dr. Tavo Mcnair of Vascular Surgery for further evaluation given her underlying PVD to help with wound healing. Follow-up is scheduled in 1 week, sooner with any concerns or worsening symptoms. 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 Dressing removed with dakins Saline 0.9% solution applied to all wounds In the presence and direction of the provider wound care as written below: Photos taken 1. Right posterior-lateral distal leg: Lido gel applied to the wound bed. Wounds washed with saline solution x 30 cc. Pat dry. Dakin's moistened gauze applied to wound bed. Equal parts of zinc oxide and hydrocortisone cream 1% applied to the excoritated areas prior to the double layer of zinc unna applied from behind the toes to 1 below the knee. Dry max and abd pads placed between the layers. Site covered with a profore 3 layer applied. L: 8.7 cm x W: 12.8 cm x D: 0.5 cm 2. Right medial distal leg: Wounds washed with saline solution x 30 cc. Pat dry.Dakin's moistened gauze applied to wound bed. Equal parts of zinc oxide and hydrocortisone cream 1% applied to the excoritated areas prior to the double layer of zinc unna applied from behind the toes to 1 below the knee. Dry max and abd pads placed between the layers. Site covered with a profore 3 layer applied. L: 4.2 cm x W: 4.8 cm x 1.3 cm 3. Right lateral sole(NEW): Closed today 6x6 triact foam applied to protect heal. Profore Multiple layer Application: A 3-layer system applied to the bilateral lower extremities. A layer of cast padding, crepe bandage, light compression bandage, followed with a layer of coban and stockinet from behind the toes to 1 below the knee. Toes were warm and pink before and post application. + dorsal pedis pulse on palpation. It was demonstrated to the patient how to check for adequate circulation. If the patient exhibits a change in color to the extremity: change in temperature, increased pain, or the compression wrap becomes wet or to tight, the patient has been instructed to remove the wrap or go to the Emergency Department. Patient voices understanding with intent to comply. Measurements: Right Calf: 55 cm Right Ankle: 33.1 cm Left Calf: 52.5 cm Left Ankle: 33.5 cm PLAN: Follow up with Marlen in 1 week Elevate your legs above your heart to decrease your swelling Patient requires a 45 minute visit Prior Auth for Pur[employer] EDUCATION PER PROVIDER: The patient/family was instructed how to wash the wound(s) with dial soap, rinsing with water, AND patting dry. Visual demonstration on how to apply the dressing. Signs AND symptoms of infection were reviewed: Increased redness, swelling, pain, green, yellow drainage, fever or chills all would need to be evaluated by a Physician. Patient received typed homegoing wound care instructions and has expressed intent to comply. Peter Jason MA, TORY 05/15/2018 4:12 PM Signed WOUND CARE INSTRUCTIONS Wound location: Right lower leg multiple wounds - Venous insufficiency bilateral lower legs Please keep dressing clean and dry 1. Wash your hands with soap and water before and after wound care. 2. Gather all supplies needed. 3. Wash wound with Dial soap and water. Pat dry. Moisturize intact skin with vitamin AANDD ointment Apply equal parts of zinc oxide and hydrocortisone cream 1% to excoriated areas 4. Apply dakins 0.125% damp gauze to the wound base avoiding intact skin 5. Cover with Dry Max and ABD pads 6. Apply Zinc Unna followed by a 3- layer Profore Lite 6. Change dressing and wraps 3 times weekly Left Leg: Wash leg with dial soap and water. Apply Vitamin AANDD to lower extremity Pad and protect heel Apply Zinc Unna Wrap followed by 3-layer Profore Lite Change dressing 3 times weekly To give your wound the best chance to heal: - Eat three balanced meals daily focusing on the protein - Control swelling by elevating the extremity above your heart - exercise the extremity - Complete your wound care instructions - Vitamin C 500 mg twice daily - Multiple Vitamin Daily - Drink a protein shake daily - continue home care Report any of the following changes to the Wound Center at [phone] or go to the Emergency Department: ? Fever or chills ? Increased drainage ? Green or yellow drainage ? Foul odor ? Increased pain ? Hardness around the wound ? Redness, warmth or swelling of the surrounding tissue ? Color change to the wound PLAN: Follow up with Marlen in 1 week Patient to resume oxygen as previously ordered. 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 OMEPRAZOLE 20 MG CAPSULE,LUIS MIGUEL* Take 1 capsule by mouth once * X LISINOPRIL 2.5 MG TABLET Take 1 tablet by mouth every * X DOCUSATE SODIUM 100 MG CAPSULE Take 1 capsule by mouth once * WARFARIN 3 MG TABLET Take 1 tablet by mouth daily * Patient taking differently: Take 3 mg by mouth once daily* X SODIUM HYPOCHLORITE 0.125 % S* Dakin's moistened gauze packi* GABAPENTIN 300 MG CAPSULE Take 1 capsule by mouth twice* X SILVER SULFADIAZINE 1 % TOPIC* Apply to leg wounds as direct* ASPIRIN 81 MG TABLET,DELAYED * Take 81 mg by mouth every jean* X MULTIVITAMIN-IRON 9 MG-FOLIC * Take 1 tablet by mouth once d* LEVOTHYROXINE 100 MCG TABLET Take 1 tablet by mouth once d* X COMPOUNDED PRESCRIPTION Calcium Alginate 4x4 Dressing* X VITAMIN C ORAL Take 1 tablet by mouth twice * X ZINC SULFATE 220 MG TABLET Take 1 tablet by mouth once d* X ACETAMINOPHEN 500 MG TABLET Take 1,000 mg by mouth every * Problem List As Of Date 05/15/2018 Noted Resolved Gastroesophageal reflux disease without esophag*INVALID FOR* Chronic atrial fibrillation (HCC) [I48.2] INVALID FOR* Priority: B More... Pure hypercholesterolemia [E78.00] Hypertension [I10] Priority: D Acquired hypothyroidism [E03.9] Priority: F CAD (coronary artery disease) [I25.10] More... 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 More... More... Respiratory failure with hypoxia (HCC) [J96.91] INVALID FOR* Priority: Severe Heart failure with preserved ejection fraction *INVALID FOR* Priority: A More... Requires continuous at home supplemental oxygen*INVALID FOR*01/20/2018 More... Adjustment disorder with depressed mood [F43.21]INVALID FOR* Constipation [K59.00] INVALID FOR* Leg ulcer, right, with fat layer exposed (HCC) *INVALID FOR* Venous stasis ulcer of right lower leg with melissa*INVALID FOR* Priority: A More... Venous stasis ulcer (HCC) [I83.009, L97.909] INVALID FOR* Priority: A Anticoagulation goal of INR 2 to 3 [Z51.81, Z79*INVALID FOR* Priority: C More... Class 2 obesity in adult [E66.9] INVALID FOR* Priority: M More... Hypotension [I95.9] INVALID FOR* Priority: D More... Pressure injury of skin, stage 2 [L89.92] INVALID FOR* Priority: E More... H/O noncompliance with medical treatment, prese*INVALID FOR* Priority: E More... Other instructions from your clinician: WOUND CARE INSTRUCTIONS Wound location: Right lower leg multiple wounds - Venous insufficiency bilateral lower legs Please keep dressing clean and dry 1. Wash your hands with soap and water before and after wound care. 2. Gather all supplies needed. 3. Wash wound with Dial soap and water. Pat dry. Moisturize intact skin with vitamin AANDD ointment Apply equal parts of zinc oxide and hydrocortisone cream 1% to excoriated areas 4. Apply dakins 0.125% damp gauze to the wound base avoiding intact skin 5. Cover with Dry Max and ABD pads 6. Apply Zinc Unna followed by a 3- layer Profore Lite 6. Change dressing and wraps 3 times weekly Left Leg: Wash leg with dial soap and water. Apply Vitamin AANDD to lower extremity Pad and protect heel Apply Zinc Unna Wrap followed by 3-layer Profore Lite Change dressing 3 times weekly To give your wound the best chance to heal: - Eat three balanced meals daily focusing on the protein - Control swelling by elevating the extremity above your heart - exercise the extremity - Complete your wound care instructions - Vitamin C 500 mg twice daily - Multiple Vitamin Daily - Drink a protein shake daily - continue home care Report any of the following changes to the Wound Center at [phone] or go to the Emergency Department: ? Fever or chills ? Increased drainage ? Green or yellow drainage ? Foul odor ? Increased pain ? Hardness around the wound ? Redness, warmth or swelling of the surrounding tissue ? Color change to the wound PLAN: Follow up with Marlen in 1 week Patient to resume oxygen as previously ordered. 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 Dressing removed with dakins Saline 0.9% solution applied to all wounds In the presence and direction of the provider wound care as written below: Photos taken 1. Right posterior-lateral distal leg: Lido gel applied to the wound bed. Wounds washed with saline solution x 30 cc. Pat dry. Dakin's moistened gauze applied to wound bed. Equal parts of zinc oxide and hydrocortisone cream 1% applied to the excoritated areas prior to the double layer of zinc unna applied from behind the toes to 1 below the knee. Dry max and abd pads placed between the layers. Site covered with a profore 3 layer applied. L: 8.7 cm x W: 12.8 cm x D: 0.5 cm 2. Right medial distal leg: Wounds washed with saline solution x 30 cc. Pat dry.Dakin's moistened gauze applied to wound bed. Equal parts of zinc oxide and hydrocortisone cream 1% applied to the excoritated areas prior to the double layer of zinc unna applied from behind the toes to 1 below the knee. Dry max and abd pads placed between the layers. Site covered with a profore 3 layer applied. L: 4.2 cm x W: 4.8 cm x 1.3 cm 3. Right lateral sole(NEW): Closed today 6x6 triact foam applied to protect heal. Profore Multiple layer Application: A 3-layer system applied to the bilateral lower extremities. A layer of cast padding, crepe bandage, light compression bandage, followed with a layer of coban and stockinet from behind the toes to 1 below the knee. Toes were warm and pink before and post application. + dorsal pedis pulse on palpation. It was demonstrated to the patient how to check for adequate circulation. If the patient exhibits a change in color to the extremity: change in temperature, increased pain, or the compression wrap becomes wet or to tight, the patient has been instructed to remove the wrap or go to the Emergency Department. Patient voices understanding with intent to comply. Measurements: Right Calf: 55 cm Right Ankle: 33.1 cm Left Calf: 52.5 cm Left Ankle: 33.5 cm PLAN: Follow up with Marlen in 1 week Elevate your legs above your heart to decrease your swelling Patient requires a 45 minute visit Prior Auth for Puraply EDUCATION PER PROVIDER: The patient/family was instructed how to wash the wound(s) with dial soap, rinsing with water, AND patting dry. Visual demonstration on how to apply the dressing. Signs AND symptoms of infection were reviewed: Increased redness, swelling, pain, green, yellow drainage, fever or chills all would need to be evaluated by a Physician. Patient received typed homegoing wound care instructions and has expressed intent to comply. Encounter Status:Closed by LUIS SIMONS on 05/26/18 PROGRESS Observed: 05/15/2018 Status: COMPLETED Source: [facility] 3:00 PM CLINIC OTHER CAMPUS REPOSITORY O ID: [id number] Author: Luis Lyles (Tray Room Worker) Carla Service: (none) Author Type: Nurse Practitioner Type: Progress Notes Filed: 08/17/2018 10:55 AM Note Text: DATE OF VISIT: 05/15/2018 REASON FOR VISIT: Non-healing lower extremity wound. HISTORY OF PRESENT ILLNESS: Rosa Beltran is a 81 year old female who presents to the [facility] for further evaluation and management of a non-healing leg wound. She has a past medical history significant for atrial fibrillation on Coumadin, coronary artery disease,?COPD, hypertension, dyslipidemia and CHF.?Patient has felt mildly short of breath over the past month. ?Increase with exertion and lying flat. She is on 40 mg of Lasix twice a day. She still is urinating appropriately. She has not had any chest pain or palpitations. ?Fever, chills, or sweats. ?No productive cough. ?No wheezing. Upon taking patients vitals, her SPO2 level was from 76% - 85%. Patient stated she had shortness of breath. She was unable to finish her sentences without catching her breath. The tips of her fingers were cyanotic. Patient was sent to the ER for further evaluation. Tiffanie BARBOSA wheeled patient to the ER. INTERVAL HISTORY: Patient was sent tot he ED during her previous visit due to low oxygenation. She is now on 2 L of oxygen at all times. She denies any breathing difficulty at this time. She is an 81 year old white female with a long-standing history of swelling in her lower extremities secondary to lymphedema. Approximately 2 years ago, she sustained a fracture to her right ankle, requiring surgical intervention. The operative site became infected, and required prolonged treatment and eventually a skin graft for complete wound closure. As a result, the patient's ambulatory capacity has been impaired. Furthermore, she is morbidly obese which limits her ambulation. The patient leads a relatively sedentary lifestyle and requires a walker for ambulation. She spends a great part of her day in a sitting position. She sleeps with the head of the bed elevated. Swelling in her lower extremities has been on-going for many years. The patient has undergone a battery of diagnostic tests. A non-invasive lower extremity arterial study in December 2016 reveals normal- ankle brachial indices, bilaterally. Venous doppler examination on 01/14 reveals incompetence of the great saphenous veins, bilaterally. There is also incompetence of the small saphenous veins, bilaterally and the right accessory saphenous vein. At present, she has three wounds, 2 on the right distal leg and the other is on the left posterior calf. The left leg wound has been present for over a year and was managed with silver alginate, NPWT, Santyl, serial sharp wound debridements, compression therapy using Surepress and compression pumps. Patient's wound cultures over the past several months have grown out Enterobacter cloacae, MRSA, coag-staph aureus, and in January grew out Pseudomonas, managed with oral antibiotics. IIn July of this year, she developed a new wound on the right lateral distal leg, then in July, she experience cellulitis of both legs requiring hospitalization. In the last year, she has been followed by Dr. Jaskaran Chance at the [facility] [place] [facility]. It was felt that her home support system was inadequate and that she may not have the resources in her home environment to appropriately care for her needs. In this regard, a geriatric social work professor consultation had been recommended on several occassions, but patient apparently insisted on remaining in her home environment despite that there was thought that is may be less than optimal. The patient is here at the [facility] for a second opinion regarding management of the abovementioned bilateral lower extremity wounds. She offers no other complaints. She denies any fevers, chills, wound-related pain or other related symptoms. 02/10/18 Patient presents for follow-up. There is one wound remaining. Patient has increased drainage (green-tinged). There is significant maceration to the periwound skin. Patient denies any wound purulence, fevers, chills. To date, wounds have been managed with sharp debridement, collagen, compression therapy and nutritional support. She offers no new complaints. The edema in her lower extremities is well-controlled. She denies any fever, chills or other related symptoms. 03/08/18 Patient here for a wound check. She continues to have significant maceration to her right leg wound area. There has been some oozing partly because of increased edema to her lowe extremities. Advised patient to follow-up with her PCP for further edema management. Patient does have a history of CHF, venous incompetency and PAD involving the right lower extremity. His right leg wound is currently managed with collagen, mild compression, sharp debridement, leg elevation as well as nutritional support. She denies fever or chills. 05/10/18 Patient was last seen here at the Wound Center on 03/17/18. At the time, she was found to have cellulitis of the right lower extremity and was sent to the ED for further evaluation and treatment. Subsequently, she was admitted to the hospital ans was started on broad spectrum antibiotics.Imaging showed no evidence of OM. The patient was seen by Infectious Disease and Podiatry and underwent IANDD on 03/23/18. She was discharged home on 03/24/18 with oral antibiotics and instructions for dressing changes. On 04/20/18, she presented to [facility] in [place] as she noticed worsening drainage from her right leg along with pain, increased swelling, and warmth. White count was elevated at 21,000 with a left shift. X-rays of her right leg were done, which did not show any acute changes. She was admitted to [facility] for further management. She was seen by the Podiatry Service and cultures were taken from her right leg. Per Podiatry, the wound to the right lateral leg was without any probing to bone but there was evidence of cellulitis from the ankle up to the leg below her knee on the right side. She then received a wound debridement per Podiatry. She was also followed by Infectious Disease and was treated with IV antibiotics. Upon discharge, it was switched to po cipro (500mg bid) and amoxicillin (500mg tid) - plan till 05/05/18. She was to have pressure dressing as per podiatry on the wound changed twice daily. It was felt that much of her problem was non-compliance with wound care recommendations at home. Also, during this hospital admission, she was hypotensive on her home blood pressure medications. It was felt that she was not taking her pills as prescribed and so they were adjusted.?The patient was discharged to a detention facility on 04/26/18 in stable condition. Today, the patients presents for follow-up in the Wound Center. The right leg wound has increased in size since I last saw her in February. There is significant maceration to the periwound skin and dressing was completely saturated with serous/yellow drainage. No purulence is noted. Mild odor is detected. Patient denies any recent fevers or chills. PAST MEDICAL HISTORY Diagnosis Date - Acquired hypothyroidism - Acute respiratory failure with hypoxia (HCC) 09/30/2017 - Atrial fibrillation ([facility]) - CAD (coronary artery disease) Dr. Brenda Awan Hts, Promus element KIMMY LAD 11/20/2012, Stress test 04/2014 inferoapical reversible ischemia,small LVEF 48- 50%, LHC 12/2014 L main-normal, LAD widely patent, Cx diffuse mild luminal irregularities with 80%focal stenosis distal, RCA dominant with minimal luminal irregularities. 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 - TOTAL KNEE REPLACEMENT Left 2004 [facility]. MEDICATIONS ergocalciferol, vitamin D2, (DRISDOL) 50,000 unit capsule Take 1 capsule by mouth once each week. levothyroxine (LEVOXYL) 100 mcg tablet Take 1 tablet by mouth once daily. Take on empty stomach. For Thyroid. gabapentin (NEURONTIN) 300 mg capsule Take 1 capsule by mouth twice daily. metoprolol tartrate, short acting, (LOPRESSOR) 50 mg tablet TAKE ONE TABLET BY MOUTH TWICE DAILY furosemide (LASIX) 40 mg tablet Take 1 tablet by mouth twice daily. COMPOUNDED PRESCRIPTION Calcium Alginate 4x4 Dressing, change daily Dx: Blister left leg with infection S80.822A, L08.9; Lymphedema I89.0. Wound dimensions: 4 x 3 cm acetaminophen (TYLENOL) 500 mg tablet Take 1,000 mg by mouth every 8 hours as needed. aspirin, enteric coated (ASPIRIN, ENTERIC COATED) 81 mg EC tablet Take 81 mg by mouth once daily. warfarin (COUMADIN) 1 mg tablet Take 1 mg by mouth daily as directed. Take 1 tablet (1mg) by mouth once daily. Take with 1 x 3mg tablet to total 4mg by mouth once daily. warfarin (COUMADIN) 3 mg tablet Take 3 mg by mouth daily as directed. Take 1 tablet (3mg) by mouth once daily. Take with 1 x 1mg tablet to total 4mg by mouth once daily. lisinopril (ZESTRIL) 2.5 mg tablet Take 2.5 mg by mouth once daily. omeprazole (PRILOSEC) 20 mg capsule Take 20 mg by mouth once daily. spironolactone (ALDACTONE) 25 mg tablet Take 25 mg by mouth once daily. docusate sodium (COLACE) 100 mg capsule Take 100 mg by mouth once daily as needed. therapeutic multivitamin w/ iron (THERAGRAN-M) 9 mg iron-400 mcg tablet Take 1 tablet by mouth once daily. ALLERGIES No Known Allergies FAMILY HISTORY: Patient's father in his 70s with a history of arthritis. Her mother at the age of 90 with a history of arthritis. SOCIAL HISTORY: Patient is a , lives alone, but has a son nearby. She has 6 children. Substance Use Topics - Smoking status: Passive Smoke Exposure - Never Smoker - Smokeless tobacco: Never Used Comment: smoked for 40 years - Alcohol use No REVIEW OF SYSTEM: PAIN ASSESSMENT: Negative for pain, history of chronic pain, or current treatment for a chronic pain condition. GENERAL: No weight loss, malaise or fevers HEENT: Negative for frequent or significant headaches, No changes in hearing or vision, no nose bleeds or other nasal problems NECK: Negative for lumps, goiter, pain and significant neck swelling RESPIRATORY: Negative for cough, hemoptysis, wheezing, positive for shortness of breath CARDIOVASCULAR: Negative for chest pain,palpitations; has chronic leg swelling GI: No nausea, vomiting, or diarrhea : No history of dysuria, frequency or incontinence MUSCULOSKELETAL: Negative for joint pain or swelling, back pain or muscle pain SKIN: As per HPI. Negative for any other lesions, rash, and itching PSYCH: Negative for sleep disturbance, mood disorder and recent psychosocial stressors HEMATOLOGY/LYMPHOLOGY: Negative for prolonged bleeding, bruising easily or swollen nodes ENDOCRINE: Negative for cold or heat intolerance, polyuria, polydipsia and goiter NEURO: No history of headaches, syncope, paralysis, seizures or tremors 05/15/18 1530 BP: 130/70 Pulse: 75 Resp: 19 Temp: 36.8 ?C (97.8 ?F) TempSrc: Oral SpO2: 94% Weight: 88.1 kg (194 lb 4.8 oz) PHYSICAL EXAMINATION: HEENT: PERRLA , sclera non-icteric, EOM intact, mucous membrane moist, pink and w/o lesions Comments: Neck: Supple, no bruit, no masses, trachea midline Comments: Chest: Lungs clear to auscultation, no accessory muscle use for respiration Comments: Heart: Regular rate/rhythm, normal S1,S2, no murmur, rubs or gallops Comments: Abdomen: Soft, non-tender, non-distended, + bowel sounds, no bruit, no organomegaly Comments: Extremity: Dorsalis pedis : Present (Y) Absent Diminished Doppler: Non-compressible Posterior Tibialis: Present (Y) Absent Diminished Doppler: Non-compressible Capillary Refill: < 3 sec. (Y) > 3 sec. 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 10/14/17 WBC 8.4, Hgb 12.2, Hct 38.5, PLT 211, Glu 91, BUN 24, Cr 0.88, Na 136, K 4.7, Cl 100, Albumin 3.6, Total protein 9.1 11/04/17 Venous Doppler Study Bilateral Lower Extremities IMPRESSION RIGHT SIDE - DEEP VEINS Negative for acute deep vein thrombosis in vessels visualized. Positive for valvular incompetency in the common femoral vein and femoral vein. Lymph node noted, within the groin, measuring 2.75 x 2.71 x .809cm. Cystic structure noted, within the popliteal fossa, measuring 2.17 x 2.67 x 1.49cm. ? RIGHT SIDE - SUPERFICIAL VEINS Positive for valvular incompetency in the great saphenous vein. REFLUX ONLY NOTED AT PROXIMAL THIGH. Vessel becomes tortuous branching from proximal to distal calf. The anterior lateral branch is negative for incompetency. Positive for valvular incompetency in the small saphenous vein. REFLUX ONLY NOTED AT DISTAL CALF. LEFT SIDE - DEEP VEINS Negative for acute deep vein thrombosis in vessels visualized. Positive for valvular incompetency in the femoral vein at the mid thigh. LEFT SIDE - SUPERFICIAL VEINS Positive for valvular incompetency in the great saphenous vein. REFLUX ONLY NOTED AT MID CALF. Negative for valvular incompetency in the small saphenous vein. No previous scans for comparison; however, chronic appearing superficial thrombophlebitis in the great saphenous vein at the distal calf. ? Technologist: Cleo Magdaleno RVT Ordering physician: Luis Simons ? Interpreting physician: Vishal Torres MD, RVT ? 01/24/17 Segmental arterial doppler study bilateral lower extremities Findings: NIMISHA 1.04 to the right and 1.0 to the left. Based upon the findings of this resting non-invasive lower extremity arterial study, arterial perfusion to ankle level appears to be relatively normal bilaterally. Triphasic and biphasic waveforms were noted at ankle level bilaterally. Resting ankle-brachial indices were bilaterally normal. ? 08/01/17 X-Ray 3-View Right Ankle Impression: There is prior open reduction internal fixation of the fibula which appears to be relatively intact allowing for advanced bony osteopenia. There is an irregular appearance of the lateral side distal tibia which is compatible with a prior fracture for which a new fracture on the lateral side is not excluded. The fracture could be potentially be associated with new trauma or potentially infection. Recommend consideration for follow-up study such as MRI or potentially three-phase bone scan. ? Flattened appearance of the arch of the foot with degenerative change of the tarsotarsal joints. ? Diffuse soft tissue swelling. ? Electronically Signed: Kelly Camarena MD at 20:15 EDT Tel , Service support , ? 10/14/17 XR 2 View Tib/Fib (Left) Findings: Left tibia-fibula: Tibial component of the joint prosthesis noted without associated abnormal lucency. No acute fracture or bony destruction. Right tibia and fibula: Plate and screw fixation remote distal fibular fracture. There is also remote tibial fracture with residual posterior angulation. Ghost tracks from previous tibial hardware. Tibial component of the joint prosthesis noted without associated abnormal lucency. No acute fracture or bony destruction. ? Stereotype Finisher: DWIGHT ? Transcribe Date/Time: Oct 14 2017 ?4:02P Dictated by : ZURDO SANTOS MD ? 10/14/17 XR 2 View Tib/Fib (Right) Findings: Left tibia-fibula: Tibial component of the joint prosthesis noted without associated abnormal lucency. No acute fracture or bony destruction. Right tibia and fibula: Plate and screw fixation remote distal fibular fracture. There is also remote tibial fracture with residual posterior angulation. Ghost tracks from previous tibial hardware. Tibial component of the joint prosthesis noted without associated abnormal lucency. No acute fracture or bony destruction. ? Stereotype Finisher: DWIGHT ? Transcribe Date/Time: Oct 14 2017 ?4:02P Dictated by : ZURDO SANTOS MD ? 10/14/17 XR 2 View Tib/Fib (Left) Findings: Left tibia-fibula: Tibial component of the joint prosthesis noted without associated abnormal lucency. No acute fracture or bony destruction. Right tibia and fibula: Plate and screw fixation remote distal fibular fracture. There is also remote tibial fracture with residual posterior angulation. Ghost tracks from previous tibial hardware. Tibial component of the joint prosthesis noted without associated abnormal lucency. No acute fracture or bony destruction. WOUND ASSESSMENT: Wound Number: 1 First Assessed Date: 10/14/17 Pre-existing: YES Location: Leg Orientation: Right, Lateral and Distal Wound Etiology: Venous Depth of Tissue Injury (Non-pressure): Full Thickness Diabetic Wounds:N/A Pressure Injury: N/A Pre-debridement Measurements Initial (First Visit): 3.5 cm length x 4.0 cm width x 0.5 cm depth Pre-debridement Measurements Initial (Current Visit): 7.8 cm length x 12.0 cm width x 1.5 cm depth Post Debridement Measurement (Current): N/A % Healing Rate/#Weeks: (- 200%) -- Week 28 Wound Bed (Post-debridement): 100% red % of Healthy tissue: Undermining: No Tunneling: No Tendon/bone exposed: NO Wound Edge/Margins: Irregular wound edges and Edge attached to base Periwound Tissue: Mild erythema, Wet (macerated), and Edema Exudate Amount:Moderate Consistency:Serous/Green Odor:Minimal Infection/Critical Colonization Localized s/s: Non-healing and Increased exudate Systemic s/s: None Local/systemic Rx: None Wound Healing Status: Chronic Clinically presenting as: Stalled wound healing Current topical treatment: Collagen Wound Number: 2 First Assessed Date: 10/14/17 Pre-existing: YES Location: Leg Orientation: Right, Medial and Distal Wound Etiology: Surgical Depth of Tissue Injury (Non-pressure): Partial Thickness Diabetic Wounds:N/A Pressure Injury: N/A Pre-Measurements Initial (First Visit): 0.5 cm length x 0.4 cm width x 0.1 cm depth Post Measurement (Current): Epithelialized % Healing Rate/#Weeks: Week 1 -- Healed Wound Bed (Post-debridement): % of Healthy tissue: Undermining: No Tunneling: No Tendon/bone exposed: NO Wound Edge/Margins: Normal, intact, Irregular wound edges and Edge attached to base Periwound Tissue: Normal, intact,uninvolved tissue and Dry,flaky Exudate Amount: None Consistency: None Odor:None Infection/Critical Colonization Localized s/s: None and Edema Systemic s/s: None Local/systemic Rx: None Wound Healing Status: Chronic Clinically presenting as: Healed Current topical treatment: Iodoflex Wound Number: 4 First Assessed Date: 03/08/18 Pre-existing: YES Location: Leg (calf) Orientation: Right anterior ace Wound Etiology: Venous Depth of Tissue Injury (Non-pressure): Full Thickness Diabetic Wounds:N/A Pressure Injury: N/A Pre-Measurements Initial (First Visit): 2.0 cm length x 2.5 cm width x 0.1 cm depth Post Measurement (Current): N/A % Healing Rate/#Weeks: 100% Healed -- Week 9 Wound Bed (Post-debridement): N/A % of Healthy tissue: Undermining: No Tunneling: No Tendon/bone exposed: NO Wound Edge/Margins: Well-defined wound edges and Edge attached to base Periwound Tissue: [employer], dry and intact, No fluctuance, induration or advancing soft tissue necrosis or ischemia Exudate: None Consistency: None Odor:None Infection/Critical Colonization: N/A Localized s/s: None Systemic s/s: None Local/systemic Rx: None Wound Healing Status: Epithelialized Clinically presenting as: Healed Wound Number: 5 First Assessed Date: 03/08/18 Pre-existing: YES Location: Foot Orientation: Right lateral Wound Etiology: Venous Depth of Tissue Injury (Non-pressure): Full Thickness Diabetic Wounds:N/A Pressure Injury: N/A Pre-Measurements Initial (First Visit): 1.5 cm length x 1.0 cm width x 0.1 cm depth Post Measurement (Current): N/A % Healing Rate/#Weeks: 100% Healed -- Week 9 Wound Bed (Post-debridement): N/A % of Healthy tissue: Undermining: No Tunneling: No Tendon/bone exposed: NO Wound Edge/Margins: Well-defined wound edges and Edge attached to base Periwound Tissue: [employer], dry and intact, No fluctuance, induration or advancing soft tissue necrosis or ischemia Exudate: None Consistency: None Odor:None Infection/Critical Colonization: N/A Localized s/s: None Systemic s/s: None Local/systemic Rx: None Wound Healing Status: Epithelialized Clinically presenting as: Healed Wound Number: 3 First Assessed Date: 10/14/17 Pre-existing: YES Location: Leg (calf) Orientation: Left and Posterior Wound Etiology: Venous Depth of Tissue Injury (Non-pressure): Full Thickness Diabetic Wounds:N/A Pressure Injury: N/A Pre-Measurements Initial (First Visit): 1.3 cm length x 1.2 cm width x 0.1 cm depth Post Measurement (Current): Epithelialized % Healing Rate/#Weeks: 100 % -- Week 5 Wound Bed (Post-debridement): 100% [employer] % of Healthy tissue: Undermining: No Tunneling: No Tendon/bone exposed: NO Wound Edge/Margins: Well-defined wound edges and Edge attached to base Periwound Tissue: [employer], dry and intact, No fluctuance, induration or advancing soft tissue necrosis or ischemia Exudate: Nonr Consistency: None Odor:None Infection/Critical Colonization: N/A Localized s/s: None Systemic s/s: None Local/systemic Rx: None Wound Healing Status: Chronic Clinically presenting as: Healed Current topical treatment: Collagen Wound Number: 6 First Assessed Date: 05/10/18 Pre-existing: YES Location: Leg (calf) Orientation: Right medial Wound Etiology: Venous Depth of Tissue Injury (Non-pressure): Full Thickness Diabetic Wounds:N/A Pressure Injury: N/A Pre-Measurements Initial (First Visit): 4.4 cm length x 3.0 cm width x 1.2 cm depth Post Measurement (Current): 4.5 cm length x 3.1 cm width x 1.4 cm depth % Healing Rate/#Weeks: Recurrent wound -- initial assessment today Wound Bed (Post-debridement): 100% [employer] % of Healthy tissue: Undermining: No Tunneling: No Tendon/bone exposed: NO Wound Edge/Margins: Well-defined wound edges and Edge attached to base; Macerated edges with significant erythema Periwound Tissue: Macerated with erythema skin excoriation; no fluctuance, induration or advancing soft tissue necrosis or ischemia Exudate: Large Consistency: Serous/ yellow Odor: Mild Infection/Critical Colonization: N/A Localized s/s: None Systemic s/s: None Local/systemic Rx: None Wound Healing Status: Chronic Clinically presenting as: Recurrent wound IMPRESSION: 1. Non-healing right and left lower extremity wounds ( #1 and #6) in the setting of chronic venous insufficiency with secondary lymphedema. 2. Recurrent right medial leg wound s/p STSG in the setting of chronic edema. 3. Significant lower extremity edema secondary to underlying chronic venous insufficiency with secondary lymphedema. 4. Multiple risk factors or co-morbidities that may contribute to wound healing difficulties include hypothyroid disease, chronic atrial fibrillation on anticoagulation, coronary artery disease, COPD, dyslipidemia, hypertension, muscle weakness, osteoarthritis, GERD, depression and obesity. 5. Wound cultures positive for Enterobacter cloacae and Staph aureus most likely increased colonization. 6. Very good glucose control based on recent HgbA1c. 7. Zinc insufficiency ( precursor for collagen synthesis. 8. No significant arterial disease based on recent PVRs. 9. No evidence of osteomyelitis based on recent XRs. 10. Valvular incompetency involving the right common femoral vein , right femoral vein, right great saphenous vein, left femoral vein (mid thigh) and left great saphenous vein (mid thigh). TREATMENT PLAN: Debridement Type: Autolytic Enzymatic Mechanical Surgical Sharp (Y) Other: Wound Dressing: See Nursing Notes for details. . Topical Rx: 1. Right posterior-lateral distal leg: Wounds washed with saline solution x 30 cc. Pat dry. Calcium alginate ag packed in to the wound base. Equal parts of zinc oxide and hydrocortisone cream 1% applied to the excoritated areas prior to the double layer of zinc unna applied from behind the toes to 1 below the knee. Dry max and abd pads placed between the layers. Site covered with a profore 3 layer applied. 2. Right medial distal leg: Lido gel applied to the wound bed prior to the sq debridement. Wounds washed with saline solution x 30 cc. Pat dry. Calcium alginate ag packed in to the wound base. Equal parts of zinc oxide and hydrocortisone cream 1% applied to the excoritated areas prior to the double layer of zinc unna applied from behind the toes to 1 below the knee. Dry max and abd pads placed between the layers. Site covered with a profore 3 layer applied. 3. Right lateral sole(NEW): Closed today Unna Boot Application: zinc paste wrap applied to bilateral lower extremities followed by a Profore wrap. Profore Multiple layer Application: A 3-layer system applied to the bilateral lower extremities. A layer of cast padding, crepe bandage, light compression bandage, followed with a layer of coban and stockinet from behind the toes to 1 below the knee. Toes were warm and pink before and post application. + dorsal pedis pulse on palpation. It was demonstrated to the patient how to check for adequate circulation. If the patient exhibits a change in color to the extremity: change in temperature, increased pain, or the compression wrap becomes wet or to tight, the patient has been instructed to remove the wrap or go to the Emergency Department. Patient voices understanding with intent to comply. Left lower leg: Moisturized with vitamin AANDD ointment. 6 ankit applied from behind the toes to 1 below the knee. Systemis Rx: Completed oral Cipro and Amoxicillin on 05/05/18. Nutritional Support: MVI, Zinc Supplement and Protein Supplement Patient is instructed to continue a healthy, well-balanced diet for nutritional support for optimal healing. Protein is the most important nutrient for wound healing. Eating adequate amounts of protein allows the body to create new cells and chemicals to heal the wound, and increases the body?s ability to fight infection. Eating high protein foods daily is recommended such as: lean meats, fish, poultry, cheese, milk, yogurt, eggs and legumes. Vitamins and minerals provide a full range of nutrients for wound healing. It can help jump start the body's production of cells and chemicals needed for healing. Vitamins and minerals can be obtained through healthy foods in your diet and by taking a multiple vitamin supplement. Vitamin C is essential for collagen synthesis. Collagen and fibroblasts compose the basis for the structure of a new wound bed. Also, a deficiency of Vitamin C prolongs the healing time and contributes to reduced resistance to infection. Laboratory: We will obtain wound cultures to determine bacterial load. She will be treated accordingly. Wound cultures are collected to assess level of bacterial bio-burden. Excessive bio-burden can result in inflammatory and proliferative phase stagnation as well as compromise of normal wound healing physiology. Bacterial proliferation, biofilm production, critical colonization and the development of resistant organism can lead to wound infection, wound deterioration and devastating tissue loss. Knowing the organism that populated the wound can help direct therapy, particularly anti-microbial dressing choices. Vascular Evaluation: PVRs for both lower extremities to evaluate for arterial insufficiency completed. Pt advised to see Dr. Tavo Mcnair of Vascular Surgery for further evaluation given her underlying PVD to help with wound healing. Follow-up is scheduled in 1 week, sooner with any concerns or worsening symptoms. Luis Simons CNP Charge Capture: [id number] PROTIME W/INR Collected: 05/11/2018 Status: F Source: [facility] 6:21 AM [facility] REPOSITORY TYPE CODE TESTS RESULT OUT OF REFERENCE UNITS RANGE LAB L9200.1001 11.9-14.4 SEC High PROTIME ISTAT 27.3 Result Comment: Reference Range 11.9 - 14.4 LAB [id number] Normal INR ISTAT 2.40 Result Comment: Critical Value > 3.5 Performed By: #### [id number] #### [facility] [place] Laboratory Point of Care [address] [place] [address] PROGRESS Observed: 05/10/2018 Status: COMPLETED Source: [facility] 11:02 AM [facility] REPOSITORY HNO ID: [id number] Author: Tiffanie Humphrey RN Service: (none) Author Type: Registered Nurse Type: Progress Notes Filed: 05/23/2018 7:05 AM Note Text: UNIVERSAL PROTOCOL / SAFETY CHECKLIST Procedure to be performed: Sharp debridement of right leg wounds Sign in Communication: 1100 Time Out: Team Confirms the Correct Patient, Correct Procedure, Correct Site and Site Marking, Correct Position (if applicable), Prep and Dry Time (if applicable). Time: 1100 Affirmation of Time Out: Yes Sign Out Discussion: Procedure completed and the patient tolerated it well without complications. Tiffanie Humphrey RN PROGRESS Observed: 05/10/2018 Status: COMPLETED Source: [facility] 10:30 AM [facility] REPOSITORY HNO ID: [id number] Author: Luis Simons Service: (none) Author Type: Nurse Practitioner Type: Progress Notes Filed: 08/17/2018 5:26 AM Note Text: DATE OF VISIT: 05/10/2018 REASON FOR VISIT: Non-healing lower extremity wound. HISTORY OF PRESENT ILLNESS: Rosa Beltran is a 81 year old female who presents to the [facility] for further evaluation and management of a non-healing leg wound. She has a past medical history significant for atrial fibrillation on Coumadin, coronary artery disease,?COPD, hypertension, dyslipidemia and CHF.?Patient has felt mildly short of breath over the past month. ?Increase with exertion and lying flat. She is on 40 mg of Lasix twice a day. She still is urinating appropriately. She has not had any chest pain or palpitations. ?Fever, chills, or sweats. ?No productive cough. ?No wheezing. Upon taking patients vitals, her SPO2 level was from 76% - 85%. Patient stated she had shortness of breath. She was unable to finish her sentences without catching her breath. The tips of her fingers were cyanotic. Patient was sent to the ER for further evaluation. Tiffanie BARBOSA wheeled patient to the ER. INTERVAL HISTORY: Patient was sent tot he ED during her previous visit due to low oxygenation. She is now on 2 L of oxygen at all times. She denies any breathing difficulty at this time. She is an 81 year old white female with a long-standing history of swelling in her lower extremities secondary to lymphedema. Approximately 2 years ago, she sustained a fracture to her right ankle, requiring surgical intervention. The operative site became infected, and required prolonged treatment and eventually a skin graft for complete wound closure. As a result, the patient's ambulatory capacity has been impaired. Furthermore, she is morbidly obese which limits her ambulation. The patient leads a relatively sedentary lifestyle and requires a walker for ambulation. She spends a great part of her day in a sitting position. She sleeps with the head of the bed elevated. Swelling in her lower extremities has been on-going for many years. The patient has undergone a battery of diagnostic tests. A non-invasive lower extremity arterial study in December 2016 reveals normal- ankle brachial indices, bilaterally. Venous doppler examination on 01/14 reveals incompetence of the great saphenous veins, bilaterally. There is also incompetence of the small saphenous veins, bilaterally and the right accessory saphenous vein. At present, she has three wounds, 2 on the right distal leg and the other is on the left posterior calf. The left leg wound has been present for over a year and was managed with silver alginate, NPWT, Santyl, serial sharp wound debridements, compression therapy using Surepress and compression pumps. Patient's wound cultures over the past several months have grown out Enterobacter cloacae, MRSA, coag-staph aureus, and in January grew out Pseudomonas, managed with oral antibiotics. IIn July of this year, she developed a new wound on the right lateral distal leg, then in July, she experience cellulitis of both legs requiring hospitalization. In the last year, she has been followed by Dr. Jaskaran Chance at the [facility]. It was felt that her home support system was inadequate and that she may not have the resources in her home environment to appropriately care for her needs. In this regard, a geriatric social work professor consultation had been recommended on several occassions, but patient apparently insisted on remaining in her home environment despite that there was thought that is may be less than optimal. The patient is here at the [facility] for a second opinion regarding management of the abovementioned bilateral lower extremity wounds. She offers no other complaints. She denies any fevers, chills, wound-related pain or other related symptoms. 02/10/18 Patient presents for follow-up. There is one wound remaining. Patient has increased drainage (green-tinged). There is significant maceration to the periwound skin. Patient denies any wound purulence, fevers, chills. To date, wounds have been managed with sharp debridement, collagen, compression therapy and nutritional support. She offers no new complaints. The edema in her lower extremities is well-controlled. She denies any fever, chills or other related symptoms. 03/08/18 Patient here for a wound check. She continues to have significant maceration to her right leg wound area. There has been some oozing partly because of increased edema to her lowe extremities. Advised patient to follow-up with her PCP for further edema management. Patient does have a history of CHF, venous incompetency and PAD involving the right lower extremity. His right leg wound is currently managed with collagen, mild compression, sharp debridement, leg elevation as well as nutritional support. She denies fever or chills. 05/10/18 Patient was last seen here at the [facility] on 03/17/18. At the time, she was found to have cellulitis of the right lower extremity and was sent to the ED for further evaluation and treatment. Subsequently, she was admitted to the hospital ans was started on broad spectrum antibiotics.Imaging showed no evidence of OM. The patient was seen by Infectious Disease and Podiatry and underwent IANDD on 03/23/18. She was discharged home on 03/24/18 with oral antibiotics and instructions for dressing changes. On 04/20/18, she presented to [facility] in [place] as she noticed worsening drainage from her right leg along with pain, increased swelling, and warmth. White count was elevated at 21,000 with a left shift. X-rays of her right leg were done, which did not show any acute changes. She was admitted to [facility] for further management. She was seen by the Podiatry Service and cultures were taken from her right leg. Per Podiatry, the wound to the right lateral leg was without any probing to bone but there was evidence of cellulitis from the ankle up to the leg below her knee on the right side. She then received a wound debridement per Podiatry. She was also followed by Infectious Disease and was treated with IV antibiotics. Upon discharge, it was switched to po cipro (500mg bid) and amoxicillin (500mg tid) - plan till 05/05/18. She was to have pressure dressing as per podiatry on the wound changed twice daily. It was felt that much of her problem was non-compliance with wound care recommendations at home. Also, during this hospital admission, she was hypotensive on her home blood pressure medications. It was felt that she was not taking her pills as prescribed and so they were adjusted.?The patient was discharged to a detention facility on 04/26/18 in stable condition. Today, the patients presents for follow-up in the Wound Center. The right leg wound has increased in size since I last saw her in February. There is significant maceration to the periwound skin and dressing was completely saturated with serous/yellow drainage. No purulence is noted. Mild odor is detected. Patient denies any recent fevers or chills. PAST MEDICAL HISTORY Diagnosis Date - Acquired hypothyroidism - Acute respiratory failure with hypoxia (HCC) 09/30/2017 - Atrial fibrillation ([facility]) - CAD (coronary artery disease) Dr. Brenda Awan Hts, Promus element KIMMY LAD 11/20/2012, Stress test 04/2014 inferoapical reversible ischemia,small LVEF 48- 50%, C 12/2014 L main-normal, LAD widely patent, Cx diffuse mild luminal irregularities with 80%focal stenosis distal, RCA dominant with minimal luminal irregularities. 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 - Pure hypercholesterolemia - Rheumatoid arthritis ([facility]) 2007 - Sleep apnea - Stented coronary artery 12/29/2016 PAST SURGICAL HISTORY Procedure Laterality Date - CC CORONARY STENT 11/20/2012 KIMMY LAD - CC CORONARY STENT 12/20/2014 KIMMY, Cfx - SECTION HX - COLONOSCOPY 06/10/2017 [facility], Nonspecific cecal ulcer - GASTRIC BYPASS HX 1986 - HERNIA REPAIR HX 1987; 1989 - PAST SURGICAL HISTORY OF Right 09/2015 right tibia fracture ORIF - PAST SURGICAL HISTORY OF Right 01/20/2016 Removal of hardware, right tibia - TOTAL KNEE REPLACEMENT Right 2003 [facility]. - TOTAL KNEE REPLACEMENT Left 2004 [facility]. MEDICATIONS ergocalciferol, vitamin D2, (DRISDOL) 50,000 unit capsule Take 1 capsule by mouth once each week. levothyroxine (LEVOXYL) 100 mcg tablet Take 1 tablet by mouth once daily. Take on empty stomach. For Thyroid. gabapentin (NEURONTIN) 300 mg capsule Take 1 capsule by mouth twice daily. metoprolol tartrate, short acting, (LOPRESSOR) 50 mg tablet TAKE ONE TABLET BY MOUTH TWICE DAILY furosemide (LASIX) 40 mg tablet Take 1 tablet by mouth twice daily. COMPOUNDED PRESCRIPTION Calcium Alginate 4x4 Dressing, change daily Dx: Blister left leg with infection S80.822A, L08.9; Lymphedema I89.0. Wound dimensions: 4 x 3 cm acetaminophen (TYLENOL) 500 mg tablet Take 1,000 mg by mouth every 8 hours as needed. aspirin, enteric coated (ASPIRIN, ENTERIC COATED) 81 mg EC tablet Take 81 mg by mouth once daily. warfarin (COUMADIN) 1 mg tablet Take 1 mg by mouth daily as directed. Take 1 tablet (1mg) by mouth once daily. Take with 1 x 3mg tablet to total 4mg by mouth once daily. warfarin (COUMADIN) 3 mg tablet Take 3 mg by mouth daily as directed. Take 1 tablet (3mg) by mouth once daily. Take with 1 x 1mg tablet to total 4mg by mouth once daily. lisinopril (ZESTRIL) 2.5 mg tablet Take 2.5 mg by mouth once daily. omeprazole (PRILOSEC) 20 mg capsule Take 20 mg by mouth once daily. spironolactone (ALDACTONE) 25 mg tablet Take 25 mg by mouth once daily. docusate sodium (COLACE) 100 mg capsule Take 100 mg by mouth once daily as needed. therapeutic multivitamin w/ iron (THERAGRAN-M) 9 mg iron-400 mcg tablet Take 1 tablet by mouth once daily. ALLERGIES No Known Allergies FAMILY HISTORY: Patient's father in his 70s with a history of arthritis. Her mother at the age of 90 with a history of arthritis. SOCIAL HISTORY Patient is a , lives alone, but has a son nearby. She has 6 children. Substance Use Topics - Smoking status: Passive Smoke Exposure - Never Smoker - Smokeless tobacco: Never Used Comment: smoked for 40 years - Alcohol use No REVIEW OF SYSTEM: PAIN ASSESSMENT: Negative for pain, history of chronic pain, or current treatment for a chronic pain condition. GENERAL: No weight loss, malaise or fevers HEENT: Negative for frequent or significant headaches, No changes in hearing or vision, no nose bleeds or other nasal problems NECK: Negative for lumps, goiter, pain and significant neck swelling RESPIRATORY: Negative for cough, hemoptysis, wheezing, positive for shortness of breath CARDIOVASCULAR: Negative for chest pain,palpitations; has chronic leg swelling GI: No nausea, vomiting, or diarrhea : No history of dysuria, frequency or incontinence MUSCULOSKELETAL: Negative for joint pain or swelling, back pain or muscle pain SKIN: As per HPI. Negative for any other lesions, rash, and itching PSYCH: Negative for sleep disturbance, mood disorder and recent psychosocial stressors HEMATOLOGY/LYMPHOLOGY: Negative for prolonged bleeding, bruising easily or swollen nodes ENDOCRINE: Negative for cold or heat intolerance, polyuria, polydipsia and goiter NEURO: No history of headaches, syncope, paralysis, seizures or tremors 05/10/18 1030 BP: 130/70 Pulse: 75 Resp: 19 Temp: 36.8 ?C (97.8 ?F) TempSrc: Oral SpO2: 94% Weight: 88.1 kg (194 lb 4.8 oz) PHYSICAL EXAMINATION: HEENT: PERRLA , sclera non-icteric, EOM intact, mucous membrane moist, pink and w/o lesions Comments: Neck: Supple, no bruit, no masses, trachea midline Comments: Chest: Lungs clear to auscultation, no accessory muscle use for respiration Comments: Heart: Regular rate/rhythm, normal S1,S2, no murmur, rubs or gallops Comments: Abdomen: Soft, non-tender, non-distended, + bowel sounds, no bruit, no organomegaly Comments: Extremity: Dorsalis pedis : Present (Y) Absent Diminished Doppler Posterior Tibialis: Present (Y) Absent Diminished Doppler Capillary Refill: < 3 sec. (Y) > 3 sec. 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 10/14/17 WBC 8.4, Hgb 12.2, Hct 38.5, PLT 211, Glu 91, BUN 24, Cr 0.88, Na 136, K 4.7, Cl 100, Albumin 3.6, Total protein 9.1 11/04/17 Venous Doppler Study Bilateral Lower Extremities IMPRESSION RIGHT SIDE - DEEP VEINS Negative for acute deep vein thrombosis in vessels visualized. Positive for valvular incompetency in the common femoral vein and femoral vein. Lymph node noted, within the groin, measuring 2.75 x 2.71 x .809cm. Cystic structure noted, within the popliteal fossa, measuring 2.17 x 2.67 x 1.49cm. ? RIGHT SIDE - SUPERFICIAL VEINS Positive for valvular incompetency in the great saphenous vein. REFLUX ONLY NOTED AT PROXIMAL THIGH. Vessel becomes tortuous branching from proximal to distal calf. The anterior lateral branch is negative for incompetency. Positive for valvular incompetency in the small saphenous vein. REFLUX ONLY NOTED AT DISTAL CALF. LEFT SIDE - DEEP VEINS Negative for acute deep vein thrombosis in vessels visualized. Positive for valvular incompetency in the femoral vein at the mid thigh. LEFT SIDE - SUPERFICIAL VEINS Positive for valvular incompetency in the great saphenous vein. REFLUX ONLY NOTED AT MID CALF. Negative for valvular incompetency in the small saphenous vein. No previous scans for comparison; however, chronic appearing superficial thrombophlebitis in the great saphenous vein at the distal calf. ? Technologist: Cleo Magdaleno RVT Ordering physician: Luis Simons ? Interpreting physician: Vishal Torres MD, RVT ? 01/24/17 Segmental arterial doppler study bilateral lower extremities Findings: NIMISHA 1.04 to the right and 1.0 to the left. Based upon the findings of this resting non-invasive lower extremity arterial study, arterial perfusion to ankle level appears to be relatively normal bilaterally. Triphasic and biphasic waveforms were noted at ankle level bilaterally. Resting ankle-brachial indices were bilaterally normal. ? 08/01/17 X-Ray 3-View Right Ankle Impression: There is prior open reduction internal fixation of the fibula which appears to be relatively intact allowing for advanced bony osteopenia. There is an irregular appearance of the lateral side distal tibia which is compatible with a prior fracture for which a new fracture on the lateral side is not excluded. The fracture could be potentially be associated with new trauma or potentially infection. Recommend consideration for follow-up study such as MRI or potentially three-phase bone scan. ? Flattened appearance of the arch of the foot with degenerative change of the tarsotarsal joints. ? Diffuse soft tissue swelling. ? Electronically Signed: Kelly Camarena MD at 20:15 EDT Tel , Service support , ? 10/14/17 XR 2 View Tib/Fib (Left) Findings: Left tibia-fibula: Tibial component of the joint prosthesis noted without associated abnormal lucency. No acute fracture or bony destruction. Right tibia and fibula: Plate and screw fixation remote distal fibular fracture. There is also remote tibial fracture with residual posterior angulation. Ghost tracks from previous tibial hardware. Tibial component of the joint prosthesis noted without associated abnormal lucency. No acute fracture or bony destruction. ? Stereotype Finisher: DWIGHT ? Transcribe Date/Time: Oct 14 2017 ?4:02P Dictated by : ZURDO SANTOS MD ? 10/14/17 XR 2 View Tib/Fib (Right) Findings: Left tibia-fibula: Tibial component of the joint prosthesis noted without associated abnormal lucency. No acute fracture or bony destruction. Right tibia and fibula: Plate and screw fixation remote distal fibular fracture. There is also remote tibial fracture with residual posterior angulation. Ghost tracks from previous tibial hardware. Tibial component of the joint prosthesis noted without associated abnormal lucency. No acute fracture or bony destruction. ? Stereotype Finisher: DWIGHT ? Transcribe Date/Time: Oct 14 2017 ?4:02P Dictated by : ZURDO SANTOS MD ? 10/14/17 XR 2 View Tib/Fib (Left) Findings: Left tibia-fibula: Tibial component of the joint prosthesis noted without associated abnormal lucency. No acute fracture or bony destruction. Right tibia and fibula: Plate and screw fixation remote distal fibular fracture. There is also remote tibial fracture with residual posterior angulation. Ghost tracks from previous tibial hardware. Tibial component of the joint prosthesis noted without associated abnormal lucency. No acute fracture or bony destruction. WOUND ASSESSMENT: Wound Number: 1 First Assessed Date: 10/14/17 Pre-existing: YES Location: Leg Orientation: Right, Lateral and Distal Wound Etiology: Venous Depth of Tissue Injury (Non-pressure): Full Thickness Diabetic Wounds:N/A Pressure Injury: N/A Pre-debridement Measurements Initial (First Visit): 3.5 cm length x 4.0 cm width x 0.5 cm depth Pre-debridement Measurements Initial (Current Visit): 7.8 cm length x 12.0 cm width x 1.5 cm depth Post Debridement Measurement (Current): N/A % Healing Rate/#Weeks: (- 200%) -- Week 28 Wound Bed (Post-debridement): 100% red % of Healthy tissue: Undermining: No Tunneling: No Tendon/bone exposed: NO Wound Edge/Margins: Irregular wound edges and Edge attached to base Periwound Tissue: Mild erythema, Wet (macerated), and Edema Exudate Amount:Moderate Consistency:Serous/Green Odor:Minimal Infection/Critical Colonization Localized s/s: Non-healing and Increased exudate Systemic s/s: None Local/systemic Rx: None Wound Healing Status: Chronic Clinically presenting as: Stalled wound healing Current topical treatment: Collagen Wound Number: 2 First Assessed Date: 10/14/17 Pre-existing: YES Location: Leg Orientation: Right, Medial and Distal Wound Etiology: Surgical Depth of Tissue Injury (Non-pressure): Partial Thickness Diabetic Wounds:N/A Pressure Injury: N/A Pre-Measurements Initial (First Visit): 0.5 cm length x 0.4 cm width x 0.1 cm depth Post Measurement (Current): Epithelialized % Healing Rate/#Weeks: Week 1 -- Healed Wound Bed (Post-debridement): % of Healthy tissue: Undermining: No Tunneling: No Tendon/bone exposed: NO Wound Edge/Margins: Normal, intact, Irregular wound edges and Edge attached to base Periwound Tissue: Normal, intact,uninvolved tissue and Dry,flaky Exudate Amount: None Consistency: None Odor:None Infection/Critical Colonization Localized s/s: None and Edema Systemic s/s: None Local/systemic Rx: None Wound Healing Status: Chronic Clinically presenting as: Healed Current topical treatment: Iodoflex Wound Number: 4 First Assessed Date: 03/08/18 Pre-existing: YES Location: Leg (calf) Orientation: Right anterior ace Wound Etiology: Venous Depth of Tissue Injury (Non-pressure): Full Thickness Diabetic Wounds:N/A Pressure Injury: N/A Pre-Measurements Initial (First Visit): 2.0 cm length x 2.5 cm width x 0.1 cm depth Post Measurement (Current): N/A % Healing Rate/#Weeks: 100% Healed -- Week 9 Wound Bed (Post-debridement): N/A % of Healthy tissue: Undermining: No Tunneling: No Tendon/bone exposed: NO Wound Edge/Margins: Well-defined wound edges and Edge attached to base Periwound Tissue: [employer], dry and intact, No fluctuance, induration or advancing soft tissue necrosis or ischemia Exudate: None Consistency: None Odor:None Infection/Critical Colonization: N/A Localized s/s: None Systemic s/s: None Local/systemic Rx: None Wound Healing Status: Epithelialized Clinically presenting as: Healed Wound Number: 5 First Assessed Date: 03/08/18 Pre-existing: YES Location: Foot Orientation: Right lateral Wound Etiology: Venous Depth of Tissue Injury (Non-pressure): Full Thickness Diabetic Wounds:N/A Pressure Injury: N/A Pre-Measurements Initial (First Visit): 1.5 cm length x 1.0 cm width x 0.1 cm depth Post Measurement (Current): N/A % Healing Rate/#Weeks: 100% Healed -- Week 9 Wound Bed (Post-debridement): N/A % of Healthy tissue: Undermining: No Tunneling: No Tendon/bone exposed: NO Wound Edge/Margins: Well-defined wound edges and Edge attached to base Periwound Tissue: [employer], dry and intact, No fluctuance, induration or advancing soft tissue necrosis or ischemia Exudate: None Consistency: None Odor:None Infection/Critical Colonization: N/A Localized s/s: None Systemic s/s: None Local/systemic Rx: None Wound Healing Status: Epithelialized Clinically presenting as: Healed Wound Number: 3 First Assessed Date: 10/14/17 Pre-existing: YES Location: Leg (calf) Orientation: Left and Posterior Wound Etiology: Venous Depth of Tissue Injury (Non-pressure): Full Thickness Diabetic Wounds:N/A Pressure Injury: N/A Pre-Measurements Initial (First Visit): 1.3 cm length x 1.2 cm width x 0.1 cm depth Post Measurement (Current): Epithelialized % Healing Rate/#Weeks: 100 % -- Week 5 Wound Bed (Post-debridement): 100% [employer] % of Healthy tissue: Undermining: No Tunneling: No Tendon/bone exposed: NO Wound Edge/Margins: Well-defined wound edges and Edge attached to base Periwound Tissue: [employer], dry and intact, No fluctuance, induration or advancing soft tissue necrosis or ischemia Exudate: Nonr Consistency: None Odor:None Infection/Critical Colonization: N/A Localized s/s: None Systemic s/s: None Local/systemic Rx: None Wound Healing Status: Chronic Clinically presenting as: Healed Current topical treatment: Collagen Wound Number: 6 First Assessed Date: 05/10/18 Pre-existing: YES Location: Leg (calf) Orientation: Right medial Wound Etiology: Venous Depth of Tissue Injury (Non-pressure): Full Thickness Diabetic Wounds:N/A Pressure Injury: N/A Pre-Measurements Initial (First Visit): 4.4 cm length x 3.0 cm width x 1.2 cm depth Post Measurement (Current): 4.5 cm length x 3.1 cm width x 1.4 cm depth % Healing Rate/#Weeks: Recurrent wound -- initial assessment today Wound Bed (Post-debridement): 100% [employer] % of Healthy tissue: Undermining: No Tunneling: No Tendon/bone exposed: NO Wound Edge/Margins: Well-defined wound edges and Edge attached to base; Macerated edges with significant erythema Periwound Tissue: Macerated with erythema skin excoriation; no fluctuance, induration or advancing soft tissue necrosis or ischemia Exudate: Large Consistency: Serous/ yellow Odor: Mild Infection/Critical Colonization: N/A Localized s/s: None Systemic s/s: None Local/systemic Rx: None Wound Healing Status: Chronic Clinically presenting as: Recurrent wound IMPRESSION: 1. Non-healing right and left lower extremity wounds ( #1 and #6) in the setting of chronic venous insufficiency with secondary lymphedema. 2. Recurrent right medial leg wound s/p STSG in the setting of chronic edema. 3. Significant lower extremity edema secondary to underlying chronic venous insufficiency with secondary lymphedema. 4. Multiple risk factors or co-morbidities that may contribute to wound healing difficulties include hypothyroid disease, chronic atrial fibrillation on anticoagulation, coronary artery disease, COPD, dyslipidemia, hypertension, muscle weakness, osteoarthritis, GERD, depression and obesity. 5. Wound cultures positive for Enterobacter cloacae and Staph aureus most likely increased colonization. 6. Very good glucose control based on recent HgbA1c. 7. Zinc insufficiency ( precursor for collagen synthesis. 8. No significant arterial disease based on recent PVRs. 9. No evidence of osteomyelitis based on recent XRs. 10. Valvular incompetency involving the right common femoral vein , right femoral vein, right great saphenous vein, left femoral vein (mid thigh) and left great saphenous vein (mid thigh). TREATMENT PLAN: Debridement Type: Autolytic Enzymatic Mechanical Surgical Sharp (Y) Other: Wound Dressing: See Nursing Notes for details. . Topical Rx: 1. Right posterior-lateral distal leg: Wounds washed with saline solution x 30 cc. Pat dry. Calcium alginate ag packed in to the wound base. Equal parts of zinc oxide and hydrocortisone cream 1% applied to the excoritated areas prior to the double layer of zinc unna applied from behind the toes to 1 below the knee. Dry max and abd pads placed between the layers. Site covered with a profore 3 layer applied. 2. Right medial distal leg: Lido gel applied to the wound bed prior to the sq debridement. Wounds washed with saline solution x 30 cc. Pat dry. Calcium alginate ag packed in to the wound base. Equal parts of zinc oxide and hydrocortisone cream 1% applied to the excoritated areas prior to the double layer of zinc unna applied from behind the toes to 1 below the knee. Dry max and abd pads placed between the layers. Site covered with a profore 3 layer applied. 3. Right lateral sole(NEW): Closed today Unna Boot Application: zinc paste wrap applied to bilateral lower extremities followed by a Profore wrap. Profore Multiple layer Application: A 3-layer system applied to the bilateral lower extremities. A layer of cast padding, crepe bandage, light compression bandage, followed with a layer of coban and stockinet from behind the toes to 1 below the knee. Toes were warm and pink before and post application. + dorsal pedis pulse on palpation. It was demonstrated to the patient how to check for adequate circulation. If the patient exhibits a change in color to the extremity: change in temperature, increased pain, or the compression wrap becomes wet or to tight, the patient has been instructed to remove the wrap or go to the Emergency Department. Patient voices understanding with intent to comply. Left lower leg: Moisturized with vitamin AANDD ointment. 6 ankit applied from behind the toes to 1 below the knee. Systemis Rx: Completed oral Cipro and Amoxicillin on 05/05/18. Nutritional Support: MVI, Zinc Supplement and Protein Supplement Patient is instructed to continue a healthy, well-balanced diet for nutritional support for optimal healing. Protein is the most important nutrient for wound healing. Eating adequate amounts of protein allows the body to create new cells and chemicals to heal the wound, and increases the body?s ability to fight infection. Eating high protein foods daily is recommended such as: lean meats, fish, poultry, cheese, milk, yogurt, eggs and legumes. Vitamins and minerals provide a full range of nutrients for wound healing. It can help jump start the body's production of cells and chemicals needed for healing. Vitamins and minerals can be obtained through healthy foods in your diet and by taking a multiple vitamin supplement. Vitamin C is essential for collagen synthesis. Collagen and fibroblasts compose the basis for the structure of a new wound bed. Also, a deficiency of Vitamin C prolongs the healing time and contributes to reduced resistance to infection. Laboratory: We will obtain wound cultures to determine bacterial load. She will be treated accordingly. Wound cultures are collected to assess level of bacterial bio-burden. Excessive bio-burden can result in inflammatory and proliferative phase stagnation as well as compromise of normal wound healing physiology. Bacterial proliferation, biofilm production, critical colonization and the development of resistant organism can lead to wound infection, wound deterioration and devastating tissue loss. Knowing the organism that populated the wound can help direct therapy, particularly anti-microbial dressing choices. Vascular Evaluation: PVRs for both lower extremities to evaluate for arterial insufficiency completed. Pt advised to see Dr. Tavo Mcnair of Vascular Surgery for further evaluation given her underlying PVD to help with wound healing. Follow-up is scheduled in 1 week, sooner with any concerns or worsening symptoms. Luis Simons CNP Charge Capture: [id number]; [id number] (x5 CNOV Observed: 05/10/2018 Status: COMPLETED Source: [facility] 10:30 AM CLINIC OTHER CAMPUS REPOSITORY Office Visit ([facility]) ROSA BELTRAN ([id number]) 1935 F Date Time Provider Department 05/10/18 10:30 AM LUIS SIMONS, (LOI) [facility] During your visit today, we recorded the following information about you: Temperature Pulse Respiration Blood pressure 98.5 degrees 75/minute 19/minute 130/70 Luis Simons APRN.CNP 08/17/2018 5:26 AM Addendum DATE OF VISIT: 05/10/2018 REASON FOR VISIT: Non-healing lower extremity wound. HISTORY OF PRESENT ILLNESS: Rosa Beltran is a 81 year old female who presents to the [facility] for further evaluation and management of a non-healing leg wound. She has a past medical history significant for atrial fibrillation on Coumadin, coronary artery disease,?COPD, hypertension, dyslipidemia and CHF.?Patient has felt mildly short of breath over the past month. ?Increase with exertion and lying flat. She is on 40 mg of Lasix twice a day. She still is urinating appropriately. She has not had any chest pain or palpitations. ?Fever, chills, or sweats. ?No productive cough. ?No wheezing. Upon taking patients vitals, her SPO2 level was from 76% - 85%. Patient stated she had shortness of breath. She was unable to finish her sentences without catching her breath. The tips of her fingers were cyanotic. Patient was sent to the ER for further evaluation. Tiffanie BARBOSA wheeled patient to the ER. INTERVAL HISTORY: Patient was sent tot he ED during her previous visit due to low oxygenation. She is now on 2 L of oxygen at all times. She denies any breathing difficulty at this time. She is an 81 year old white female with a long-standing history of swelling in her lower extremities secondary to lymphedema. Approximately 2 years ago, she sustained a fracture to her right ankle, requiring surgical intervention. The operative site became infected, and required prolonged treatment and eventually a skin graft for complete wound closure. As a result, the patient's ambulatory capacity has been impaired. Furthermore, she is morbidly obese which limits her ambulation. The patient leads a relatively sedentary lifestyle and requires a walker for ambulation. She spends a great part of her day in a sitting position. She sleeps with the head of the bed elevated. Swelling in her lower extremities has been on-going for many years. The patient has undergone a battery of diagnostic tests. A non-invasive lower extremity arterial study in December 2016 reveals normal-ankle brachial indices, bilaterally. Venous doppler examination on 01/14 reveals incompetence of the great saphenous veins, bilaterally. There is also incompetence of the small saphenous veins, bilaterally and the right accessory saphenous vein. At present, she has three wounds, 2 on the right distal leg and the other is on the left posterior calf. The left leg wound has been present for over a year and was managed with silver alginate, NPWT, Santyl, serial sharp wound debridements, compression therapy using Surepress and compression pumps. Patient's wound cultures over the past several months have grown out Enterobacter cloacae, MRSA, coag-staph aureus, and in January grew out Pseudomonas, managed with oral antibiotics. IIn July of this year, she developed a new wound on the right lateral distal leg, then in July, she experience cellulitis of both legs requiring hospitalization. In the last year, she has been followed by Dr. Jaskaran Chance at the [facility] [place] [facility]. It was felt that her home support system was inadequate and that she may not have the resources in her home environment to appropriately care for her needs. In this regard, a geriatric social work professor consultation had been recommended on several occassions, but patient apparently insisted on remaining in her home environment despite that there was thought that is may be less than optimal. The patient is here at the [facility] for a second opinion regarding management of the abovementioned bilateral lower extremity wounds. She offers no other complaints. She denies any fevers, chills, wound-related pain or other related symptoms. 02/10/18 Patient presents for follow-up. There is one wound remaining. Patient has increased drainage (green-tinged). There is significant maceration to the periwound skin. Patient denies any wound purulence, fevers, chills. To date, wounds have been managed with sharp debridement, collagen, compression therapy and nutritional support. She offers no new complaints. The edema in her lower extremities is well-controlled. She denies any fever, chills or other related symptoms. 03/08/18 Patient here for a wound check. She continues to have significant maceration to her right leg wound area. There has been some oozing partly because of increased edema to her lowe extremities. Advised patient to follow-up with her PCP for further edema management. Patient does have a history of CHF, venous incompetency and PAD involving the right lower extremity. His right leg wound is currently managed with collagen, mild compression, sharp debridement, leg elevation as well as nutritional support. She denies fever or chills. 05/10/18 Patient was last seen here at the Wound Center on 03/17/18. At the time, she was found to have cellulitis of the right lower extremity and was sent to the ED for further evaluation and treatment. Subsequently, she was admitted to the hospital ans was started on broad spectrum antibiotics.Imaging showed no evidence of OM. The patient was seen by Infectious Disease and Podiatry and underwent IANDD on 03/23/18. She was discharged home on 03/24/18 with oral antibiotics and instructions for dressing changes. On 04/20/18, she presented to [facility] in [place] as she noticed worsening drainage from her right leg along with pain, increased swelling, and warmth. White count was elevated at 21,000 with a left shift. X-rays of her right leg were done, which did not show any acute changes. She was admitted to [facility] for further management. She was seen by the Podiatry Service and cultures were taken from her right leg. Per Podiatry, the wound to the right lateral leg was without any probing to bone but there was evidence of cellulitis from the ankle up to the leg below her knee on the right side. She then received a wound debridement per Podiatry. She was also followed by Infectious Disease and was treated with IV antibiotics. Upon discharge, it was switched to po cipro (500mg bid) and amoxicillin (500mg tid) - plan till 05/05/18. She was to have pressure dressing as per podiatry on the wound changed twice daily. It was felt that much of her problem was non- compliance with wound care recommendations at home. Also, during this hospital admission, she was hypotensive on her home blood pressure medications. It was felt that she was not taking her pills as prescribed and so they were adjusted.?The patient was discharged to a detention facility on 04/26/18 in stable condition. Today, the patients presents for follow-up in the Wound Center. The right leg wound has increased in size since I last saw her in February. There is significant maceration to the periwound skin and dressing was completely saturated with serous/yellow drainage. No purulence is noted. Mild odor is detected. Patient denies any recent fevers or chills. PAST MEDICAL HISTORY Diagnosis Date - Acquired hypothyroidism - Acute respiratory failure with hypoxia (HCC) 09/30/2017 - Atrial fibrillation ([facility]) - CAD (coronary artery disease) Dr. Brenda Awan Hts, Promus element KIMMY LAD 11/20/2012, Stress test 04/2014 inferoapical reversible ischemia,small LVEF 48-50%, LHC 12/2014 L main-normal, LAD widely patent, Cx diffuse mild luminal irregularities with 80%focal stenosis distal, RCA dominant with minimal luminal irregularities. 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 - Pure hypercholesterolemia - Rheumatoid arthritis ([facility]) 2007 - Sleep apnea - Stented coronary artery 12/29/2016 PAST SURGICAL HISTORY Procedure Laterality Date - CC CORONARY STENT 11/20/2012 KIMMY LAD - CC CORONARY STENT 12/20/2014 KIMMY, Cfx - SECTION HX - COLONOSCOPY 06/10/2017 [facility], Nonspecific cecal ulcer - GASTRIC BYPASS HX 1986 - HERNIA REPAIR HX 1987; 1989 - PAST SURGICAL HISTORY OF Right 09/2015 right tibia fracture ORIF - PAST SURGICAL HISTORY OF Right 01/20/2016 Removal of hardware, right tibia - TOTAL KNEE REPLACEMENT Right 2003 [facility] Gen. - TOTAL KNEE REPLACEMENT Left 2004 [facility] Gen. MEDICATIONS ergocalciferol, vitamin D2, (DRISDOL) 50,000 unit capsule Take 1 capsule by mouth once each week. levothyroxine (LEVOXYL) 100 mcg tablet Take 1 tablet by mouth once daily. Take on empty stomach. For Thyroid. gabapentin (NEURONTIN) 300 mg capsule Take 1 capsule by mouth twice daily. metoprolol tartrate, short acting, (LOPRESSOR) 50 mg tablet TAKE ONE TABLET BY MOUTH TWICE DAILY furosemide (LASIX) 40 mg tablet Take 1 tablet by mouth twice daily. COMPOUNDED PRESCRIPTION Calcium Alginate 4x4 Dressing, change daily Dx: Blister left leg with infection S80.822A, L08.9; Lymphedema I89.0. Wound dimensions: 4 x 3 cm acetaminophen (TYLENOL) 500 mg tablet Take 1,000 mg by mouth every 8 hours as needed. aspirin, enteric coated (ASPIRIN, ENTERIC COATED) 81 mg EC tablet Take 81 mg by mouth once daily. warfarin (COUMADIN) 1 mg tablet Take 1 mg by mouth daily as directed. Take 1 tablet (1mg) by mouth once daily. Take with 1 x 3mg tablet to total 4mg by mouth once daily. warfarin (COUMADIN) 3 mg tablet Take 3 mg by mouth daily as directed. Take 1 tablet (3mg) by mouth once daily. Take with 1 x 1mg tablet to total 4mg by mouth once daily. lisinopril (ZESTRIL) 2.5 mg tablet Take 2.5 mg by mouth once daily. omeprazole (PRILOSEC) 20 mg capsule Take 20 mg by mouth once daily. spironolactone (ALDACTONE) 25 mg tablet Take 25 mg by mouth once daily. docusate sodium (COLACE) 100 mg capsule Take 100 mg by mouth once daily as needed. therapeutic multivitamin w/ iron (THERAGRAN-M) 9 mg iron-400 mcg tablet Take 1 tablet by mouth once daily. ALLERGIES No Known Allergies FAMILY HISTORY: Patient's father in his 70s with a history of arthritis. Her mother at the age of 90 with a history of arthritis. SOCIAL HISTORY Patient is a , lives alone, but has a son nearby. She has 6 children. Substance Use Topics - Smoking status: Passive Smoke Exposure - Never Smoker - Smokeless tobacco: Never Used Comment: smoked for 40 years - Alcohol use No REVIEW OF SYSTEM: PAIN ASSESSMENT: Negative for pain, history of chronic pain, or current treatment for a chronic pain condition. GENERAL: No weight loss, malaise or fevers HEENT: Negative for frequent or significant headaches, No changes in hearing or vision, no nose bleeds or other nasal problems NECK: Negative for lumps, goiter, pain and significant neck swelling RESPIRATORY: Negative for cough, hemoptysis, wheezing, positive for shortness of breath CARDIOVASCULAR: Negative for chest pain,palpitations; has chronic leg swelling GI: No nausea, vomiting, or diarrhea : No history of dysuria, frequency or incontinence MUSCULOSKELETAL: Negative for joint pain or swelling, back pain or muscle pain SKIN: As per HPI. Negative for any other lesions, rash, and itching PSYCH: Negative for sleep disturbance, mood disorder and recent psychosocial stressors HEMATOLOGY/LYMPHOLOGY: Negative for prolonged bleeding, bruising easily or swollen nodes ENDOCRINE: Negative for cold or heat intolerance, polyuria, polydipsia and goiter NEURO: No history of headaches, syncope, paralysis, seizures or tremors 05/10/18 1030 BP: 130/70 Pulse: 75 Resp: 19 Temp: 36.8 ?C (97.8 ?F) TempSrc: Oral SpO2: 94% Weight: 88.1 kg (194 lb 4.8 oz) PHYSICAL EXAMINATION: HEENT: PERRLA , sclera non-icteric, EOM intact, mucous membrane moist, pink and w/o lesions Comments: Neck: Supple, no bruit, no masses, trachea midline Comments: Chest: Lungs clear to auscultation, no accessory muscle use for respiration Comments: Heart: Regular rate/rhythm, normal S1,S2, no murmur, rubs or gallops Comments: Abdomen: Soft, non-tender, non-distended, + bowel sounds, no bruit, no organomegaly Comments: Extremity: Dorsalis pedis : Present (Y) Absent Diminished Doppler Posterior Tibialis: Present (Y) Absent Diminished Doppler Capillary Refill: < 3 sec. (Y) > 3 sec. 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 10/14/17 WBC 8.4, Hgb 12.2, Hct 38.5, PLT 211, Glu 91, BUN 24, Cr 0.88, Na 136, K 4.7, Cl 100, Albumin 3.6, Total protein 9.1 11/04/17 Venous Doppler Study Bilateral Lower Extremities IMPRESSION RIGHT SIDE - DEEP VEINS Negative for acute deep vein thrombosis in vessels visualized. Positive for valvular incompetency in the common femoral vein and femoral vein. Lymph node noted, within the groin, measuring 2.75 x 2.71 x .809cm. Cystic structure noted, within the popliteal fossa, measuring 2.17 x 2.67 x 1.49cm. ? RIGHT SIDE - SUPERFICIAL VEINS Positive for valvular incompetency in the great saphenous vein. REFLUX ONLY NOTED AT PROXIMAL THIGH. Vessel becomes tortuous branching from proximal to distal calf. The anterior lateral branch is negative for incompetency. Positive for valvular incompetency in the small saphenous vein. REFLUX ONLY NOTED AT DISTAL CALF. LEFT SIDE - DEEP VEINS Negative for acute deep vein thrombosis in vessels visualized. Positive for valvular incompetency in the femoral vein at the mid thigh. LEFT SIDE - SUPERFICIAL VEINS Positive for valvular incompetency in the great saphenous vein. REFLUX ONLY NOTED AT MID CALF. Negative for valvular incompetency in the small saphenous vein. No previous scans for comparison; however, chronic appearing superficial thrombophlebitis in the great saphenous vein at the distal calf. ? Technologist: Cloe Magdaleno RVT Ordering physician: Luis Simons ? Interpreting physician: Vishal Torres MD, RVT ? 01/24/17 Segmental arterial doppler study bilateral lower extremities Findings: NIMISHA 1.04 to the right and 1.0 to the left. Based upon the findings of this resting non-invasive lower extremity arterial study, arterial perfusion to ankle level appears to be relatively normal bilaterally. Triphasic and biphasic waveforms were noted at ankle level bilaterally. Resting ankle- brachial indices were bilaterally normal. ? 08/01/17 X-Ray 3-View Right Ankle Impression: There is prior open reduction internal fixation of the fibula which appears to be relatively intact allowing for advanced bony osteopenia. There is an irregular appearance of the lateral side distal tibia which is compatible with a prior fracture for which a new fracture on the lateral side is not excluded. The fracture could be potentially be associated with new trauma or potentially infection. Recommend consideration for follow- up study such as MRI or potentially three-phase bone scan. ? Flattened appearance of the arch of the foot with degenerative change of the tarsotarsal joints. ? Diffuse soft tissue swelling. ? Electronically Signed: Kelly Caamrena MD at 20:15 EDT Tel , Service support , ? 10/14/17 XR 2 View Tib/Fib (Left) Findings: Left tibia-fibula: Tibial component of the joint prosthesis noted without associated abnormal lucency. No acute fracture or bony destruction. Right tibia and fibula: Plate and screw fixation remote distal fibular fracture. There is also remote tibial fracture with residual posterior angulation. Ghost tracks from previous tibial hardware. Tibial component of the joint prosthesis noted without associated abnormal lucency. No acute fracture or bony destruction. ? Stereotype Finisher: DWIGHT ? Transcribe Date/Time: Oct 14 2017 ?4:02P Dictated by : ZUDRO SANTOS MD ? 10/14/17 XR 2 View Tib/Fib (Right) Findings: Left tibia-fibula: Tibial component of the joint prosthesis noted without associated abnormal lucency. No acute fracture or bony destruction. Right tibia and fibula: Plate and screw fixation remote distal fibular fracture. There is also remote tibial fracture with residual posterior angulation. Ghost tracks from previous tibial hardware. Tibial component of the joint prosthesis noted without associated abnormal lucency. No acute fracture or bony destruction. ? Stereotype Finisher: DWIGHT ? Transcribe Date/Time: Oct 14 2017 ?4:02P Dictated by : ZURDO SANTOS MD ? 10/14/17 XR 2 View Tib/Fib (Left) Findings: Left tibia-fibula: Tibial component of the joint prosthesis noted without associated abnormal lucency. No acute fracture or bony destruction. Right tibia and fibula: Plate and screw fixation remote distal fibular fracture. There is also remote tibial fracture with residual posterior angulation. Ghost tracks from previous tibial hardware. Tibial component of the joint prosthesis noted without associated abnormal lucency. No acute fracture or bony destruction. WOUND ASSESSMENT: Wound Number: 1 First Assessed Date: 10/14/17 Pre-existing: YES Location: Leg Orientation: Right, Lateral and Distal Wound Etiology: Venous Depth of Tissue Injury (Non-pressure): Full Thickness Diabetic Wounds:N/A Pressure Injury: N/A Pre-debridement Measurements Initial (First Visit): 3.5 cm length x 4.0 cm width x 0.5 cm depth Pre-debridement Measurements Initial (Current Visit): 7.8 cm length x 12.0 cm width x 1.5 cm depth Post Debridement Measurement (Current): N/A % Healing Rate/#Weeks: (- 200%) -- Week 28 Wound Bed (Post-debridement): 100% red % of Healthy tissue: Undermining: No Tunneling: No Tendon/bone exposed: NO Wound Edge/Margins: Irregular wound edges and Edge attached to base Periwound Tissue: Mild erythema, Wet (macerated), and Edema Exudate Amount:Moderate Consistency:Serous/Green Odor:Minimal Infection/Critical Colonization Localized s/s: Non-healing and Increased exudate Systemic s/s: None Local/systemic Rx: None Wound Healing Status: Chronic Clinically presenting as: Stalled wound healing Current topical treatment: Collagen Wound Number: 2 First Assessed Date: 10/14/17 Pre-existing: YES Location: Leg Orientation: Right, Medial and Distal Wound Etiology: Surgical Depth of Tissue Injury (Non-pressure): Partial Thickness Diabetic Wounds:N/A Pressure Injury: N/A Pre-Measurements Initial (First Visit): 0.5 cm length x 0.4 cm width x 0.1 cm depth Post Measurement (Current): Epithelialized % Healing Rate/#Weeks: Week 1 -- Healed Wound Bed (Post-debridement): % of Healthy tissue: Undermining: No Tunneling: No Tendon/bone exposed: NO Wound Edge/Margins: Normal, intact, Irregular wound edges and Edge attached to base Periwound Tissue: Normal, intact,uninvolved tissue and Dry,flaky Exudate Amount: None Consistency: None Odor:None Infection/Critical Colonization Localized s/s: None and Edema Systemic s/s: None Local/systemic Rx: None Wound Healing Status: Chronic Clinically presenting as: Healed Current topical treatment: Iodoflex Wound Number: 4 First Assessed Date: 03/08/18 Pre-existing: YES Location: Leg (calf) Orientation: Right anterior ace Wound Etiology: Venous Depth of Tissue Injury (Non-pressure): Full Thickness Diabetic Wounds:N/A Pressure Injury: N/A Pre-Measurements Initial (First Visit): 2.0 cm length x 2.5 cm width x 0.1 cm depth Post Measurement (Current): N/A % Healing Rate/#Weeks: 100% Healed -- Week 9 Wound Bed (Post-debridement): N/A % of Healthy tissue: Undermining: No Tunneling: No Tendon/bone exposed: NO Wound Edge/Margins: Well-defined wound edges and Edge attached to base Periwound Tissue: [employer], dry and intact, No fluctuance, induration or advancing soft tissue necrosis or ischemia Exudate: None Consistency: None Odor:None Infection/Critical Colonization: N/A Localized s/s: None Systemic s/s: None Local/systemic Rx: None Wound Healing Status: Epithelialized Clinically presenting as: Healed Wound Number: 5 First Assessed Date: 03/08/18 Pre-existing: YES Location: Foot Orientation: Right lateral Wound Etiology: Venous Depth of Tissue Injury (Non-pressure): Full Thickness Diabetic Wounds:N/A Pressure Injury: N/A Pre-Measurements Initial (First Visit): 1.5 cm length x 1.0 cm width x 0.1 cm depth Post Measurement (Current): N/A % Healing Rate/#Weeks: 100% Healed -- Week 9 Wound Bed (Post-debridement): N/A % of Healthy tissue: Undermining: No Tunneling: No Tendon/bone exposed: NO Wound Edge/Margins: Well-defined wound edges and Edge attached to base Periwound Tissue: [employer], dry and intact, No fluctuance, induration or advancing soft tissue necrosis or ischemia Exudate: None Consistency: None Odor:None Infection/Critical Colonization: N/A Localized s/s: None Systemic s/s: None Local/systemic Rx: None Wound Healing Status: Epithelialized Clinically presenting as: Healed Wound Number: 3 First Assessed Date: 10/14/17 Pre-existing: YES Location: Leg (calf) Orientation: Left and Posterior Wound Etiology: Venous Depth of Tissue Injury (Non-pressure): Full Thickness Diabetic Wounds:N/A Pressure Injury: N/A Pre-Measurements Initial (First Visit): 1.3 cm length x 1.2 cm width x 0.1 cm depth Post Measurement (Current): Epithelialized % Healing Rate/#Weeks: 100 % -- Week 5 Wound Bed (Post-debridement): 100% [employer] % of Healthy tissue: Undermining: No Tunneling: No Tendon/bone exposed: NO Wound Edge/Margins: Well-defined wound edges and Edge attached to base Periwound Tissue: [employer], dry and intact, No fluctuance, induration or advancing soft tissue necrosis or ischemia Exudate: Nonr Consistency: None Odor:None Infection/Critical Colonization: N/A Localized s/s: None Systemic s/s: None Local/systemic Rx: None Wound Healing Status: Chronic Clinically presenting as: Healed Current topical treatment: Collagen Wound Number: 6 First Assessed Date: 05/10/18 Pre-existing: YES Location: Leg (calf) Orientation: Right medial Wound Etiology: Venous Depth of Tissue Injury (Non-pressure): Full Thickness Diabetic Wounds:N/A Pressure Injury: N/A Pre-Measurements Initial (First Visit): 4.4 cm length x 3.0 cm width x 1.2 cm depth Post Measurement (Current): 4.5 cm length x 3.1 cm width x 1.4 cm depth % Healing Rate/#Weeks: Recurrent wound -- initial assessment today Wound Bed (Post-debridement): 100% [employer] % of Healthy tissue: Undermining: No Tunneling: No Tendon/bone exposed: NO Wound Edge/Margins: Well-defined wound edges and Edge attached to base; Macerated edges with significant erythema Periwound Tissue: Macerated with erythema skin excoriation; no fluctuance, induration or advancing soft tissue necrosis or ischemia Exudate: Large Consistency: Serous/ yellow Odor: Mild Infection/Critical Colonization: N/A Localized s/s: None Systemic s/s: None Local/systemic Rx: None Wound Healing Status: Chronic Clinically presenting as: Recurrent wound IMPRESSION: 1. Non-healing right and left lower extremity wounds ( #1 and #6) in the setting of chronic venous insufficiency with secondary lymphedema. 2. Recurrent right medial leg wound s/p STSG in the setting of chronic edema. 3. Significant lower extremity edema secondary to underlying chronic venous insufficiency with secondary lymphedema. 4. Multiple risk factors or co-morbidities that may contribute to wound healing difficulties include hypothyroid disease, chronic atrial fibrillation on anticoagulation, coronary artery disease, COPD, dyslipidemia, hypertension, muscle weakness, osteoarthritis, GERD, depression and obesity. 5. Wound cultures positive for Enterobacter cloacae and Staph aureus most likely increased colonization. 6. Very good glucose control based on recent HgbA1c. 7. Zinc insufficiency ( precursor for collagen synthesis. 8. No significant arterial disease based on recent PVRs. 9. No evidence of osteomyelitis based on recent XRs. 10. Valvular incompetency involving the right common femoral vein , right femoral vein, right great saphenous vein, left femoral vein (mid thigh) and left great saphenous vein (mid thigh). TREATMENT PLAN: Debridement Type: Autolytic Enzymatic Mechanical Surgical Sharp (Y) Other: Wound Dressing: See Nursing Notes for details. . Topical Rx: 1. Right posterior-lateral distal leg: Wounds washed with saline solution x 30 cc. Pat dry. Calcium alginate ag packed in to the wound base. Equal parts of zinc oxide and hydrocortisone cream 1% applied to the excoritated areas prior to the double layer of zinc unna applied from behind the toes to 1 below the knee. Dry max and abd pads placed between the layers. Site covered with a profore 3 layer applied. 2. Right medial distal leg: Lido gel applied to the wound bed prior to the sq debridement. Wounds washed with saline solution x 30 cc. Pat dry. Calcium alginate ag packed in to the wound base. Equal parts of zinc oxide and hydrocortisone cream 1% applied to the excoritated areas prior to the double layer of zinc unna applied from behind the toes to 1 below the knee. Dry max and abd pads placed between the layers. Site covered with a profore 3 layer applied. 3. Right lateral sole(NEW): Closed today Unna Boot Application: zinc paste wrap applied to bilateral lower extremities followed by a Profore wrap. Profore Multiple layer Application: A 3-layer system applied to the bilateral lower extremities. A layer of cast padding, crepe bandage, light compression bandage, followed with a layer of coban and stockinet from behind the toes to 1 below the knee. Toes were warm and pink before and post application. + dorsal pedis pulse on palpation. It was demonstrated to the patient how to check for adequate circulation. If the patient exhibits a change in color to the extremity: change in temperature, increased pain, or the compression wrap becomes wet or to tight, the patient has been instructed to remove the wrap or go to the Emergency Department. Patient voices understanding with intent to comply. Left lower leg: Moisturized with vitamin AANDD ointment. 6 ankit applied from behind the toes to 1 below the knee. Systemis Rx: Completed oral Cipro and Amoxicillin on 05/05/18. Nutritional Support: MVI, Zinc Supplement and Protein Supplement Patient is instructed to continue a healthy, well-balanced diet for nutritional support for optimal healing. Protein is the most important nutrient for wound healing. Eating adequate amounts of protein allows the body to create new cells and chemicals to heal the wound, and increases the body?s ability to fight infection. Eating high protein foods daily is recommended such as: lean meats, fish, poultry, cheese, milk, yogurt, eggs and legumes. Vitamins and minerals provide a full range of nutrients for wound healing. It can help jump start the body's production of cells and chemicals needed for healing. Vitamins and minerals can be obtained through healthy foods in your diet and by taking a multiple vitamin supplement. Vitamin C is essential for collagen synthesis. Collagen and fibroblasts compose the basis for the structure of a new wound bed. Also, a deficiency of Vitamin C prolongs the healing time and contributes to reduced resistance to infection. Laboratory: We will obtain wound cultures to determine bacterial load. She will be treated accordingly. Wound cultures are collected to assess level of bacterial bio-burden. Excessive bio-burden can result in inflammatory and proliferative phase stagnation as well as compromise of normal wound healing physiology. Bacterial proliferation, biofilm production, critical colonization and the development of resistant organism can lead to wound infection, wound deterioration and devastating tissue loss. Knowing the organism that populated the wound can help direct therapy, particularly anti-microbial dressing choices. Vascular Evaluation: PVRs for both lower extremities to evaluate for arterial insufficiency completed. Pt advised to see Dr. Tavo Mcnair of Vascular Surgery for further evaluation given her underlying PVD to help with wound healing. Follow-up is scheduled in 1 week, sooner with any concerns or worsening symptoms. Luis Simons CNP Charge Capture: [id number]; [id number] (x5) Luis Simons APRN.LOI 08/17/2018 4:33 AM Signed A time out was performed immediately prior to procedure start with the wound care team, correctly identifying the patient name, date of , procedure, anatomy, patient position, safety precautions, and procedure- specific equipment needs. The procedure was explained to the patient including the risks, benefits and alternatives. The risks, including but not limited to infection and bleeding, were reviewed by this provider and the patient agreed to undergo the procedure. After providing local analgesia with Lidocaine 2% gel, a full-thickness excisional debridement of wound #1 and 5 wounds was performed and carried through the (skin, subcutaneous tissue) using a sterile #15 blade, iris scissors, and forceps to remove the non-viable or devitalized tissue. The debridement extended into the viable wound margin/s to promote a healthy, active wound edge to support healing. The patient tolerated the procedure well without complications. Hemostasis was achieved with direct pressure. The wound/s was/were then copiously irrigated with sterile normal saline and dressings were applied. 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 Dressing removed with dakins Saline 0.9% solution applied to all wounds In the presence and direction of the provider wound care as written below: Photos taken 1. Right posterior-lateral distal leg: Lido gel applied to the wound bed prior to the sq debridement. Wounds washed with saline solution x 30 cc. Pat dry. Calcium alginate ag packed in to the wound base. Equal parts of zinc oxide and hydrocortisone cream 1% applied to the excoritated areas prior to the double layer of zinc unna applied from behind the toes to 1 below the knee. Dry max and abd pads placed between the layers. Site covered with a profore 3 layer applied. L: 7.8 cm x W: 12.0 cm x D: 1.5 cm 2. Right medial distal leg: Lido gel applied to the wound bed prior to the sq debridement. Wounds washed with saline solution x 30 cc. Pat dry. Calcium alginate ag packed in to the wound base. Equal parts of zinc oxide and hydrocortisone cream 1% applied to the excoritated areas prior to the double layer of zinc unna applied from behind the toes to 1 below the knee. Dry max and abd pads placed between the layers. Site covered with a profore 3 layer applied. L: 4.5 cm x W: 3.1 cm x 1.4 cm 3. Right lateral sole(NEW): Closed today L: 1.0 cm x W: 0.8 cm x D: 0.1 cm Unna Boot Application: zinc paste wrap applied to bilateral lower extremities followed by a Profore wrap. Profore Multiple layer Application: A 3-layer system applied to the bilateral lower extremities. A layer of cast padding, crepe bandage, light compression bandage, followed with a layer of coban and stockinet from behind the toes to 1 below the knee. Toes were warm and pink before and post application. + dorsal pedis pulse on palpation. It was demonstrated to the patient how to check for adequate circulation. If the patient exhibits a change in color to the extremity: change in temperature, increased pain, or the compression wrap becomes wet or to tight, the patient has been instructed to remove the wrap or go to the Emergency Department. Patient voices understanding with intent to comply. Measurements: Right Calf: 57 cm Right Ankle: 34.5 cm Left Calf: 52.6 cm Left Ankle: 34.5 cm PLAN: Follow up with [facility] 2 x Weekly for 2 weeks Elevate your legs above your heart to decrease your swelling Patient requires a 45 minute visit EDUCATION PER PROVIDER: The patient/family was instructed how to wash the wound(s) with dial soap, rinsing with water, AND patting dry. Visual demonstration on how to apply the dressing. Signs AND symptoms of infection were reviewed: Increased redness, swelling, pain, green, yellow drainage, fever or chills all would need to be evaluated by a Physician. Patient received typed homegoing wound care instructions and has expressed intent to comply. Tiffanie Humphrey RN, RN 05/23/2018 7:05 AM Signed UNIVERSAL PROTOCOL / SAFETY CHECKLIST Procedure to be performed: Sharp debridement of right leg wounds Sign in Communication: 1100 Time Out: Team Confirms the Correct Patient, Correct Procedure, Correct Site and Site Marking, Correct Position (if applicable), Prep and Dry Time (if applicable). Time: 1100 Affirmation of Time Out: Yes Sign Out Discussion: Procedure completed and the patient tolerated it well without complications. ELENA Muñoz RN, RN 05/10/2018 11:33 AM Addendum WOUND CARE INSTRUCTIONS Wound location: Right lower leg multiple wounds - Venous insufficiency bilateral lower legs Please keep dressing clean and dry To give your wound the best chance to heal: - Eat three balanced meals daily focusing on the protein - Control swelling by elevating the extremity above your heart - exercise the extremity - Complete your wound care instructions - Vitamin C 500 mg twice daily - Multiple Vitamin Daily - Drink a protein shake daily - continue home care Report any of the following changes to the Wound Center at [phone] or go to the Emergency Department: ? Fever or chills ? Increased drainage ? Green or yellow drainage ? Foul odor ? Increased pain ? Hardness around the wound ? Redness, warmth or swelling of the surrounding tissue ? 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 OMEPRAZOLE 20 MG CAPSULE,LUIS MIGUEL* Take 1 capsule by mouth once * X LISINOPRIL 2.5 MG TABLET Take 1 tablet by mouth every * X DOCUSATE SODIUM 100 MG CAPSULE Take 1 capsule by mouth once * WARFARIN 3 MG TABLET Take 1 tablet by mouth daily * Patient taking differently: Take 3 mg by mouth once daily* X SODIUM HYPOCHLORITE 0.125 % S* Dakin's moistened gauze packi* GABAPENTIN 300 MG CAPSULE Take 1 capsule by mouth twice* X VITAMIN C ORAL Take 1 tablet by mouth twice * X SILVER SULFADIAZINE 1 % TOPIC* Apply to leg wounds as direct* X ZINC SULFATE 220 MG TABLET Take 1 tablet by mouth once d* ASPIRIN 81 MG TABLET,DELAYED * Take 81 mg by mouth every jean* X ACETAMINOPHEN 500 MG TABLET Take 1,000 mg by mouth every * X MULTIVITAMIN-IRON 9 MG-FOLIC * Take 1 tablet by mouth once d* LEVOTHYROXINE 100 MCG TABLET Take 1 tablet by mouth once d* X COMPOUNDED PRESCRIPTION Calcium Alginate 4x4 Dressing* Problem List As Of Date 05/10/2018 Noted Resolved Gastroesophageal reflux disease without esophag*INVALID FOR* Chronic atrial fibrillation (HCC) [I48.2] INVALID FOR* Priority: B More... Pure hypercholesterolemia [E78.00] Hypertension [I10] Priority: D Acquired hypothyroidism [E03.9] Priority: F CAD (coronary artery disease) [I25.10] More... 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 More... More... Respiratory failure with hypoxia (HCC) [J96.91] INVALID FOR* Priority: Severe Heart failure with preserved ejection fraction *INVALID FOR* Priority: A More... Requires continuous at home supplemental oxygen*INVALID FOR*01/20/2018 More... Adjustment disorder with depressed mood [F43.21]INVALID FOR* Constipation [K59.00] INVALID FOR* Leg ulcer, right, with fat layer exposed (HCC) *INVALID FOR* Venous stasis ulcer of right lower leg with melissa*INVALID FOR* Priority: A More... Venous stasis ulcer (HCC) [I83.009, L97.909] INVALID FOR* Priority: A Anticoagulation goal of INR 2 to 3 [Z51.81, Z79*INVALID FOR* Priority: C More... Class 2 obesity in adult [E66.9] INVALID FOR* Priority: M More... Hypotension [I95.9] INVALID FOR* Priority: D More... Pressure injury of skin, stage 2 [L89.92] INVALID FOR* Priority: E More... H/O noncompliance with medical treatment, prese*INVALID FOR* Priority: E More... Other instructions from your clinician: WOUND CARE INSTRUCTIONS Wound location: Right lower leg multiple wounds - Venous insufficiency bilateral lower legs Please keep dressing clean and dry To give your wound the best chance to heal: - Eat three balanced meals daily focusing on the protein - Control swelling by elevating the extremity above your heart - exercise the extremity - Complete your wound care instructions - Vitamin C 500 mg twice daily - Multiple Vitamin Daily - Drink a protein shake daily - continue home care Report any of the following changes to the Wound Center at [phone] or go to the Emergency Department: ? Fever or chills ? Increased drainage ? Green or yellow drainage ? Foul odor ? Increased pain ? Hardness around the wound ? Redness, warmth or swelling of the surrounding tissue ? 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 Dressing removed with dakins Saline 0.9% solution applied to all wounds In the presence and direction of the provider wound care as written below: Photos taken 1. Right posterior-lateral distal leg: Lido gel applied to the wound bed prior to the sq debridement. Wounds washed with saline solution x 30 cc. Pat dry. Calcium alginate ag packed in to the wound base. Equal parts of zinc oxide and hydrocortisone cream 1% applied to the excoritated areas prior to the double layer of zinc unna applied from behind the toes to 1 below the knee. Dry max and abd pads placed between the layers. Site covered with a profore 3 layer applied. L: 7.8 cm x W: 12.0 cm x D: 1.5 cm 2. Right medial distal leg: Lido gel applied to the wound bed prior to the sq debridement. Wounds washed with saline solution x 30 cc. Pat dry. Calcium alginate ag packed in to the wound base. Equal parts of zinc oxide and hydrocortisone cream 1% applied to the excoritated areas prior to the double layer of zinc unna applied from behind the toes to 1 below the knee. Dry max and abd pads placed between the layers. Site covered with a profore 3 layer applied. L: 4.5 cm x W: 3.1 cm x 1.4 cm 3. Right lateral sole(NEW): Closed today L: 1.0 cm x W: 0.8 cm x D: 0.1 cm Unna Boot Application: zinc paste wrap applied to bilateral lower extremities followed by a Profore wrap. Profore Multiple layer Application: A 3-layer system applied to the bilateral lower extremities. A layer of cast padding, crepe bandage, light compression bandage, followed with a layer of coban and stockinet from behind the toes to 1 below the knee. Toes were warm and pink before and post application. + dorsal pedis pulse on palpation. It was demonstrated to the patient how to check for adequate circulation. If the patient exhibits a change in color to the extremity: change in temperature, increased pain, or the compression wrap becomes wet or to tight, the patient has been instructed to remove the wrap or go to the Emergency Department. Patient voices understanding with intent to comply. Measurements: Right Calf: 57 cm Right Ankle: 34.5 cm Left Calf: 52.6 cm Left Ankle: 34.5 cm PLAN: Follow up with [facility] 2 x Weekly for 2 weeks Elevate your legs above your heart to decrease your swelling Patient requires a 45 minute visit EDUCATION PER PROVIDER: The patient/family was instructed how to wash the wound(s) with dial soap, rinsing with water, AND patting dry. Visual demonstration on how to apply the dressing. Signs AND symptoms of infection were reviewed: Increased redness, swelling, pain, green, yellow drainage, fever or chills all would need to be evaluated by a Physician. Patient received typed homegoing wound care instructions and has expressed intent to comply. Encounter Status:Closed by LUIS SIMONS on 05/23/18 PROCEDURE Observed: 05/10/2018 Status: COMPLETED Source: [facility] 10:30 AM CLINIC OTHER CAMPUS REPOSITORY HNO ID: [id number] Author: Luis Lyles ([facility] Service: (none) Author Type: Nurse Practitioner Type: Procedures Filed: 08/17/2018 4:33 AM Note Text: A time out was performed immediately prior to procedure start with the wound care team, correctly identifying the patient name, date of , procedure, anatomy, patient position, safety precautions, and procedure-specific equipment needs. The procedure was explained to the patient including the risks, benefits and alternatives. The risks, including but not limited to infection and bleeding, were reviewed by this provider and the patient agreed to undergo the procedure. After providing local analgesia with Lidocaine 2% gel, a full-thickness excisional debridement of wound #1 and 5 wounds was performed and carried through the (skin, subcutaneous tissue) using a sterile #15 blade, iris scissors, and forceps to remove the non-viable or devitalized tissue. The debridement extended into the viable wound margin/s to promote a healthy, active wound edge to support healing. The patient tolerated the procedure well without complications. Hemostasis was achieved with direct pressure. The wound/s was/were then copiously irrigated with sterile normal saline and dressings were applied. URINALYSIS, ROUTINE Collected: 05/09/2018 Status: F Source: [facility] (DIPSTICK) 11:30 PM [facility] REPOSITORY Order Comment: How was Urine Obtained? CATHETER SPECIMEN TYPE CODE TESTS RESULT OUT OF RANGE REFERENCE UNITS LAB L400.3000 Yellow COLOR Normal Yellow LAB L400.3050 Clear Normal CLARITY Clear LAB L400.3200 Normal mg/dl Normal GLUCOSE, UR Normal LAB L400.3300 Negative mg/dL Normal BILIRUBIN URINE Negative LAB L400.3400 Negative mg/dl Normal KETONE UR Negative LAB L400.3465 1.002-1.030 Normal SP.GR. DIPSTX 1.015 LAB L400.3550 5.0 - 8.0 pH UR Normal 6.0 LAB L400.3600 Negative mg/dl PROT Normal DIPSTX Negative LAB L400.3700 Normal mg/dl Normal UROBILI Normal LAB L400.3750 Negative Normal NITRITE UR Negative LAB L400.3780 Negative /ul Normal OCCULT BLOOD-UR Negative LAB L400.3800 Negative /ul LEUK Normal ESTERASE Negative Performed By: #### L400.2010 #### [facility] [address] [place], [address] Observed: 05/09/2018 Status: F Source: VALE CULTURE, URINE 11:30 PM [facility] REPOSITORY Urine Culture Culture exhibits no growth. Performed By: #### M100.0650 #### [facility] [address], [address] CBC W/DIFF, AUTOMATED Collected: 05/09/2018 Status: F Source: VALE 1:25 PM [facility] REPOSITORY TYPE CODE TESTS RESULT OUT OF RANGE REFERENCE UNITS LAB L100.1000 4.4-11.0 K/mm3 Normal WBC 4.9 LAB L100.1200 4.2-5.4 M/mm3 Low RBC 3.57 LAB L100.1300 12.0-15.0 g/dl Low HGB 9.9 LAB L100.1400 37-47 % Low HCT 32.7 LAB L100.1500 81-99 fL Normal MCV 91.6 LAB L100.1600 27.0-32.0 pg Normal MCH 27.7 LAB L100.1700 32-36 g/gl Low MCHC 30.3 LAB L100.1810 11.6-14.6 % High RDW CV 17.6 LAB L100.1820 35.1-43.9 fl High RDW SD 58.5 LAB L100.1900 150-450 K/mm3 Normal PLT 237 LAB L100.2000 6.2-12.0 fl Normal MPV 9.8 LAB L100.2100 47-70 % Normal NEUT% 56.0 LAB L100.2200 19-41 % Normal LY% 27.9 LAB L100.2300 0-10 % High MONO% 10.2 LAB L100.2400 0-5 % Normal EO% 4.9 LAB L100.2500 0-1 % Normal BASO% 0.6 LAB L100.2550 0.0-0.9 % Normal IM GRAN % 0.400 Result Comment: IG% - Immature Granulocytes (promyelocytes, myelocytes and metamyelocytes) > 1% indicates that a LEFT SHIFT is Present. LAB L100.2620 2.0-7.7 X10 3/uL Normal Absolute Neut 2.8 LAB L100.2720 0.83-4.51 X10 3/ul Normal Absolute Lymph 1.37 Performed By: #### L100.0100 #### [facility] [address], [address] COMPREHENSIVE METABOLIC Collected: 05/09/2018 Status: F Source: VALE FORBES 1:25 PM [facility] REPOSITORY TYPE CODE TESTS RESULT OUT OF RANGE REFERENCE UNITS LAB L501.0100 74-106 mg/dL Normal GLU 79 Result Comment: Please note revised GLUCOSE reference range effective 2017. LAB L501.1000 7-18 mg/dL High BUN 25 LAB L501.1100 0.55-1.02 mg/dL High CREAT,SERUM 1.12 Result Comment: The validity of the calculated GFR AND GFRAA in patients over 70 years has not been determined. Clinical correlation is essential. LAB L501.1110 >60 mL/min Low EST GFR 50 Result Comment: Non- GFR Calc LAB L501.1115 >60 mL/min Normal EST GFR - AA 60 Result Comment: GFR Calc LAB L501.1300 10-20 RATIO High BUN/CRE 22.3 LAB L501.1500 6.4-8.2 g/dL T Normal PROT 7.9 LAB L501.1800 3.2-5.0 g/dL Low ALB 2.5 LAB L501.1950 2.2-4.2 g/dL High GLOB 5.4 LAB L501.2000 0.9-2.4 RATIO Low A/G 0.5 LAB L501.2200 8.5-10.1 mg/dL Low CA 8.2 LAB L501.4100 15-37 U/L Normal AST 29 LAB L501.4305 45-117 U/L Normal ALK P 82 LAB L501.4405 13-56 U/L Normal ALT 13 LAB L501.4600 0.20-1.00 mg/dL T Normal BILI 0.30 LAB L501.5300 136-145 mmol/L Low NA 135 LAB L501.5600 3.5-5.1 mmol/L High K 5.6 LAB L501.5900 98-107 mmol/L CL Normal 102 LAB L501.6100 21.0-32.0 mmol/L Normal CO2 27.0 LAB L501.6200 5-15 Normal GAP 6 Performed By: #### L500.4050 #### [facility] Laboratory [address], [address] PROTIME W/INR Collected: 05/09/2018 Status: F Source: VALE FINGERSTICK 5:53 AM [facility] REPOSITORY TYPE CODE TESTS RESULT OUT OF REFERENCE UNITS RANGE LAB L9200.1001 11.9-14.4 SEC High PROTIME ISTAT 26.7 Result Comment: Reference Range 11.9 - 14.4 LAB L9200.2000 Normal INR ISTAT 2.30 Result Comment: Critical Value > 3.5 Performed By: #### [id number] #### [facility] Laboratory Point of Care [address] [address] PROTIME W/INR Collected: 05/05/2018 Status: F Source: VALE FINGERSTICK 6:22 AM [facility] REPOSITORY TYPE CODE TESTS RESULT OUT OF REFERENCE UNITS RANGE LAB L9200.1001 11.9-14.4 SEC High PROTIME ISTAT 22.0 Result Comment: Reference Range 11.9 - 14.4 LAB L9200.2000 Normal INR ISTAT 1.90 Result Comment: Critical Value > 3.5 Performed By: #### [id number] #### [facility] Laboratory Point of Care [address] [address] PROTIME W/INR Collected: 05/04/2018 Status: F Source: VALE FINGERSTICK 5:27 AM [facility] REPOSITORY TYPE CODE TESTS RESULT OUT OF REFERENCE UNITS RANGE LAB L9200.1001 11.9-14.4 SEC High PROTIME ISTAT 18.3 Result Comment: Reference Range 11.9 - 14.4 LAB L9200.2000 Normal INR ISTAT 1.60 Result Comment: Critical Value > 3.5 Performed By: #### [id number] #### [facility] Laboratory Point of Care [address] [address] PROTIME W/INR Collected: 05/03/2018 Status: F Source: VALE FINGERSTICK 5:48 AM [facility] REPOSITORY TYPE CODE TESTS RESULT OUT OF REFERENCE UNITS RANGE LAB L9200.1001 11.9-14.4 SEC High PROTIME ISTAT 17.8 Result Comment: Reference Range 11.9 - 14.4 LAB L9200.2000 Normal INR ISTAT 1.50 Result Comment: Critical Value > 3.5 Performed By: #### [id number] #### [facility] Laboratory Point of Care [address] [place] [address] PROTHROMBIN TIME W/INR Collected: 05/02/2018 Status: F Source: VALE 5:42 AM [facility] REPOSITORY Order Comment: ROOM 303 TYPE CODE TESTS RESULT OUT OF RANGE REFERENCE UNITS LAB L300.4150 11.7-14.9 SECONDS High PROTIME 16.9 LAB L300.4200 Normal INR 1.4 Performed By: #### L300.3900 #### [facility] Laboratory [facility] [place], [address] PROTIME W/INR Collected: 05/01/2018 Status: F Source: VALE FINGERSTICK 6:52 AM [facility] REPOSITORY TYPE CODE TESTS RESULT OUT OF REFERENCE UNITS RANGE LAB L9200.1001 11.9-14.4 SEC High PROTIME ISTAT 16.5 Result Comment: Reference Range 11.9 - 14.4 LAB L9200.2000 Normal INR ISTAT 1.40 Result Comment: Critical Value > 3.5 Performed By: #### [id number] #### [facility] Laboratory Point of Care [address] [address] PROTHROMBIN TIME W/INR Collected: 04/29/2018 Status: F Source: VALE 7:35 AM [facility] REPOSITORY TYPE CODE TESTS RESULT OUT OF RANGE REFERENCE UNITS LAB L300.4150 11.7-14.9 SECONDS High PROTIME 17.1 LAB L300.4200 Normal INR 1.4 Performed By: #### L300.3900 #### [facility] Laboratory [address] [place], [address] PROTHROMBIN TIME W/INR Collected: 04/28/2018 Status: F Source: VALE 6:12 AM [facility] REPOSITORY TYPE CODE TESTS RESULT OUT OF RANGE REFERENCE UNITS LAB L300.4150 11.7-14.9 SECONDS High PROTIME 18.5 LAB L300.4200 Normal INR 1.5 Performed By: #### L300.3900 #### [facility] Laboratory [address], [address] PROTHROMBIN TIME W/INR Collected: 04/27/2018 Status: F Source: VALE 6:40 AM [facility] REPOSITORY Order Comment: ROOM 303 TYPE CODE TESTS RESULT OUT OF RANGE REFERENCE UNITS LAB L300.4150 11.7-14.9 SECONDS High PROTIME 20.9 LAB L300.4200 Normal INR 1.8 Performed By: #### L300.3900 #### [facility] Laboratory [address], [address] CONSULT PROG Observed: 04/26/2018 Status: COMPLETED Source: VICTOR 12:33 PM CLINIC OTHER CAMPUS REPOSITORY HNO ID: [id number] Author: Heather Lynn Service: Infectious Disease Author Type: Physician Type: Consult Progress Note Filed: 04/26/2018 1:53 PM Note Text: INFECTIOUS DISEASE PROGRESS NOTE Patient Name: Rosa Beltran Date: 04/26/2018 ASSESSMENT: 1. Right leg worsening wound infection. Her prior cultures have shown polymicrobial sanchez including Pseudomonas, ampicillin susceptible Enterococcus, Proteus, and MSSA. MRI neg for osteomyelitis. 2. Right lower extremity cellulitis, likely due to #1. 3. Sepsis, present on admission, likely due to #1 and 2. 4. Leukocytosis, which has improved, likely due to #1 and 2. 5. Peripheral arterial disease. 6. Rheumatoid arthritis. 7. Noncompliance. 8. Coronary artery disease. 9. Hypothyroidism. 10.Chronic obstructive pulmonary disease. PLAN: D/c zosyn po cipro (500mg bid) and amoxicillin (500mg tid) till 05/05/18 OK for d/c from ID standpoint. d/w primary service. INTERVAL HISTORY: ROS done with pt/RN and negative unless stated. No f/c/n/v/d. MEDICATIONS: reviewed. Current hospital medications: lisinopril 2.5 mg tab(s) (ZESTRIL, PRINIVIL) 2.5 mg ORAL DAILY piperacillin-tazobactam 3.375 g in dextrose (iso-osmotic) 50 mL (ZOSYN) 3.375 g INTRAVENOUS q 8 H levothyroxine 100 mcg tab(s) (SYNTHROID) 100 mcg ORAL DAILY (6 AM) potassium chloride 40 mEq in lactated Ringers 1,000 mL INTRAVENOUS CONTINUOUS acetaminophen 650 mg tab(s) (TYLENOL) 650 mg ORAL q 6 H PRN warfarin 3 mg tab(s) (COUMADIN) 3 mg ORAL DAILY gabapentin 300 mg cap(s) (NEURONTIN) 300 mg ORAL BID docusate sodium 100 mg cap(s) (COLACE) 100 mg ORAL DAILY PRN therapeutic multivitamin with iron (THERAGRAN-M) 1 tablet ORAL DAILY sodium hypochlorite 0.125 % (DAKIN'S QUARTER STRENGTH) TOPICAL DAILY aspirin, enteric coated 81 mg tab(s) (ASPIRIN, ENTERIC COATED) 81 mg ORAL DAILY 0.9% NaCl 3-5 mL 3-5 mL INTRAVENOUS q 12 H ondansetron orally disintegrating 4 mg tab(s) (ZOFRAN ODT) 4 mg ORAL q 6 H PRN ondansetron (PF) 4 mg injection (ZOFRAN) 4 mg INTRAVENOUS q [address] 20 mg tab(s) (PROTONIX) 20 mg ORAL DAILY (6 AM) PHYSICAL EXAM: Vital signs: BP 136/68 Pulse 62 Temp 36.9 ?C (98.4 ?F) (Oral) Resp 18 Ht 162.6 cm (5' 4) Wt 96.6 kg (212 lb 15.4 oz) SpO2 95% BMI 36.56 kg/m? General: alert, oriented, NAD Lungs: bilaterally clear to auscultation Heart: regular rate and rhythm Abdomen: soft, non tender, non distended, BS+ Extremities: no swollen joints RLE edema, erythema better. Dressing + Skin: no rash IV sites - wnl Lab data: reviewed Recent Labs 04/26/18 0548 04/25/18 1251 04/25/18 0643 04/24/18 0555 WBC 6.09 -- 5.92 5.71 HB 10.6* -- 10.7* 10.1* PLT 251 -- 241 231 INR 2.2* 2.5* -- 2.9* NA 136 -- 134* 135* K 4.8 -- 4.9 4.8 CO2 32* -- 31* 35* BUN 27* -- 28* 32* CREAT 1.31* -- 1.22* 1.51* AST 25 -- 26 22 ALT 9 -- 9 7 TBILI 0.3 -- 0.4 0.3 ALKPHOS 66 -- 65 56 Microbiology data: reviewed Imaging data: reviewed Heather Lynn MD Pager: NURSING PROG Observed: 04/26/2018 Status: COMPLETED Source: VICTOR 10:47 AM [facility] REPOSITORY HNO ID: [id number] Author: Yaneth (Rn) ELENA Roman Service: (none) Author Type: Registered Nurse Type: Nursing Progress Note Filed: 04/26/2018 12:52 PM Note Text: Nursing Progress Note Patient Name: Rosa Beltran Patient Location: [place] [id number]- Daily Note: 0700: Assumed care of patient. Patient resting in bed w/eyes closed. No visible s/o pain or distress. Utilizing 2L n/c. IV fluids infusing w/o complication. Call banda in reach, bed down, safety maintained. 1230: Patient discharged to [facility] in stable condition. Left via wheelchair w/[facility]. Discharge paperwork and all personal belongings w/patient to facility. Report called to Keira. This note was completed by: Yaneth Roman RN PLAN OF CARE Observed: 04/26/2018 Status: COMPLETED Source: VICTOR 10:16 AM [facility] REPOSITORY HNO ID: [id number] Author: Yamilka Rosa (Appraisal Coordinator) Service: (none) Author Type: (none) Type: Plan of Care Filed: 04/26/2018 10:16 AM Note Text: SNUFF CONTAINER INSPECTOR BEDSIDE DELIVERY SURVEY 1. Patient to use [facility] Bedside Delivery - N/A 2. If fax, patient would like us to fax prescriptions to Pharmacy of choice a. Pharmacy: b. Location: c. Phone: 3. Insurance card on file - N/A 4. Credit card for payment - N/A Patient d/c'ing to SNF. CASE MANAGEM Observed: 04/26/2018 Status: COMPLETED Source: VICTOR 9:53 AM CLINIC OTHER CAMPUS REPOSITORY O ID: [id number] Author: Yaneth Jimenez (Sw) Service: Care Management Author Type: Tax Preparer Type: Care Mgt Progress Note Filed: 04/26/2018 9:58 AM Note Text: CARE MANAGEMENT DISCHARGE NOTE SERVICE DATE: 04/26/2018 SERVICE TIME: 9:53 AM LOS: 6 days Admission Date: 04/20/2018 DISCHARGE ARRANGEMENT (list agency and phone number) [facility] facility Provider: [facility] CAREGIVER ASSESSMENT: Caregiver is ready, willing and able to meet the patient's needs as recommended by the inter-professional team? Yes Patient's transition needs and plan for meeting these needs: Pt d/c to SNF where her needs will be met. Does the patient have an acute stroke diagnosis, or has the patient had a stroke during this admission? No HANDOFF COMMUNICATION: Sap Consultant: Maritza Howe Primary Care Physician: Mani Newman TRANSPORTATION ARRANGEMENTS: Mode of Transportation: [employer] Agency and Phone #: [facility] ( [facility] ) [phone] / [phone]. Date of Trip: 04/26/2018 Type of Service: Wheelchair Is Patient Medicaid Pending: No Discussion of financial coverage occurred with Patient . Cushion Former Location: [address] [place] [address] Destination: [facility] Financial Care Management Responsibility: None Estimated Charge: n/a Approving Mail Caller: n/a ADDITIONAL CONTACT RESOURCES: n/a D/c orders received for pt to d/c to SNF. Pt has been accepted by [facility]. Zena met with pt and her dtr in law bedside to discuss d/c plan. Pt reluctantly agreeable to SNF and requested wheelchair transport. [facility] to transport at 1145am today. IM letter explained and copy given to pt. Pt agreeable with d/c. No additional identified skilled needs nor questions at this time. Summary of care sent to PCC and PCP via [employer]. SIGNATURE: Yaneth Jimenez, EARLY CHILDHOOD EDUCATION WORKER, BOTTOM BUFFER PATIENT NAME: Rosa Beltran DATE: April 26, 2018 TIME: 9:53 AM PAGER/CONTACT #: [phone] CNDS Observed: 04/26/2018 Status: COMPLETED Source: VICTOR 9:35 AM CLINIC OTHER CAMPUS REPOSITORY HNO ID: [id number] Author: Khai Edgar MD Service: Hospital Medicine Author Type: Physician Type: Discharge Summaries Filed: 04/26/2018 9:36 AM Note Text: DISCHARGE SUMMARY PATIENT NAME: Rosa Beltran Admission Information Admission Information ADMIT DATE: 04/20/2018 DISCHARGE DATE: 04/26/2018 MY DOCTORS AND MEDICAL TEAM: My Main Hospital Doctor: Khai Edgar MD Primary Care Provider: Mani Newman MD My Medical Team Members: Treatment Team: Attending Provider: Khai Edgar MD Physician Motor Vehicle Compliance Analyst: Justin Dangelo ([place]) Consulting: Heather Lynn Consulting: Chintan Dempsey DPM MY CONDITION AT DISCHARGE: Stable REASON I WAS IN THE HOSPITAL: Unable to care for wound and leg and it became secondarily infected SUMMARY OF WHAT HAPPENED WHILE I WAS IN THE HOSPITAL: It was found that her heart rate and blood pressure were low on your prescribed medications and these were reduced markedly. Your leg responded rapidly to therapy with some gentle debridement. It was felt that you are unable to care for the wound and are sent to detention facility for compression dressing to be applied twice daily. OTHER PROBLEMS/DIAGNOSIS: Active Problems: Venous stasis ulcer of right lower leg with edema of right lower leg (HCC) Chronic atrial fibrillation (HCC) Anticoagulation goal of INR 2 to 3 Hypotension Pressure injury of skin, stage 2 H/O noncompliance with medical treatment, presenting hazards to health Class 2 obesity in adult Resolved Problems: * No resolved hospital problems. * OPERATIONS PERFORMED WHILE IN THE HOSPITAL: None IMPORTANT TEST/PROCEDURES: Wound debridement TEST RESULTS NOT AVAILABLE AT THIS TIME: No pending results Discharge Disposition Discharge Disposition: Half-Way Facility - Less than 30 Days Activity When You Leave the Hospital Limited to: Activity levels are to be directed by the assessments of the occupational and physical therapists. Diet Instructions Resume your pre-hospital diet For Pain When You Leave the Hospital Use acetaminophen (Tylenol) as recommended on the bottle Wound/Surgical Site Care Other: Wound care dressing changes as per Dr. Dempsey with pressure dressing changed twice daily. gauze, washed with dakins, dressed with xeroform, 4x4s, abd, kerlix, ankit compression. Post-debridement measurement above Cont wound care while in house Concern for poor wound care prior to admission Cont Wound care ordered, wash with dakins, xeroform, 4x4s, abds, kerlix, ANKIT with mild compression, BID Apply heel protectors to offload MRI reviewed No OM, no concern for deep abscess, superficial wound, cont local wound care No podiatry surgical plans at this time Cont abx per ID recs No plans for Podiatry ID in [place] Follow up in [facility] ?wound is so much better with just debridmeent and wound care Recommended SNF daily wound care and compression Follow Up Appointments Follow-Up Appointment When: In 1 week Patient/Parents to call for appointment?: Yes Chintan Dempsey DPM [phone] [facility] [address] PCP Requested Referral Additional Provider to Provider Information: Reason for Admission/Observation: Chronic venous stasis ulcer with the acute superimposed cellulitis ? HOSPITAL DAY ZERO: 04/20/2018 ? Presentation: 82 Y F with PMHx of venous stasis ulcer RLE, CAD s/p PCI, AF on coumadin, Pulm HTN,?HTN, HLD, BEBA, RA, hypothyroid??who [facility] with chronic RLE wounds with suspected acute cellulitis with elevated wbc. She was admitted last month, seen by ID, podiatry, had debridement in pt and as out pt 2 weeks ago. She does have [facility] who noticed worsening signs of infection today so sent her to ED. ? Consultants: Dr. Roselyn Lynn ? Disposition: [facility] facility Hospital course: The patient was admitted and had debridement by podiatry. It was felt that much of her problem was noncompliance with wound care recommendations at home. She was treated with IV antibiotics and switched to oral antibiotics which will be as follows:D/c plan on po cipro (500mg bid) and amoxicillin (500mg tid) - plan till 05/05/18 She is to have pressure dressing as per podiatry on the wound changed twice daily. She was hypotensive on her home blood pressure medications and this again was probably due to not taking them at home and when she is given them she's hypotensive so they were adjusted.? EXAM:? BP 111/68 Pulse 61 Temp 36.4 ?C (97.5 ?F) (Oral) Resp 20 Ht 162.6 cm (5' 4) Wt 96.6 kg (212 lb 15.4 oz) SpO2 97% BMI 36.56 kg/m? GENERAL: Alert, no distress, cooperative NECK: No Jugulovenous distention LUNGS: Clear respiratory distress -No CARDIAC: Irregularly irregular with variable S-1 without murmur, rub, or gallop ABDOMEN: Abdomen soft, non-tender, BS normal, No masses or organomegaly EXTREMITIES:no edema No cords - examined wound with podiatry there is no cellulitis left and the base is improving though there is some eschar posteriorly. NEURO: Grossly normal cognition, motor function, and cranial nerves. ? ? ? Active Hospital Problems as of 04/26/2018 Noted - Resolved A Venous stasis ulcer of right lower leg with edema of right lower leg (HCC) 04/11/2018 - Present Current Assessment AND Plan assessment: White count and temperature are normal. Superficial debridement of the wound today and the patient should be able to go on a twice daily pressure dressing. This would not be able to be done by home health care due to the scheduling time of 12 hours apart. Extensive discussion with the patient. Plan: Discharge tomorrow and hopefully patient will choose detention facility on oral antibiotics B Chronic atrial fibrillation (HCC) 10/08/2016 - Present Overview On coumadin, rate controlled, INR therapeutic. Monitor on tele. Current Assessment AND Plan Assessment: No active CHF and she was having fairly marked bradycardia with beta louann and is not tachycardic without so it is being held and anticoagulation may need adjusted tomorrow PLAN: Resume beta louann if becomes tachycardic or if blood pressure medication is required C Anticoagulation goal of INR 2 to 3 04/23/2018 - Present Current Assessment AND Plan Recent Labs 04/26/18 0548 04/25/18 1251 04/24/18 0555 INR 2.2* 2.5* 2.9* Assessment: INR is therapeutic PLAN: Monitor INR D Hypotension 04/24/2018 - Present Current Assessment AND Plan Assessment: stop diuretics and beta louann initially. Resumed ANKIT inhibitor today. PLAN: monitor blood pressure - she is hypotensive and bradycardic when her normal home medications are actually taken E H/O noncompliance with medical treatment, presenting hazards to health 04/26/2018 - Present Current Assessment AND Plan Assessment: Wound healed well with proper wound care and her blood pressure and heart rate were quite low when her medications were actually given as prescribed PLAN: Nursing facility to get wound to an adequate level of healing for her safe discharge home. Pressure injury of skin, stage 2 04/25/2018 - Present Current Assessment AND Plan Assessment: Stage II coccygeal ulcer present on arrival. Patient refuses to turn side to side and with her obesity and lack of movement she is a set up to have this type pressure injury. PLAN: Continue to encourage the patient to let nursing staff turn her. The nurse and I had long discussion with the patient on 04/24. M Class 2 obesity in adult 04/23/2018 - Present Current Assessment AND Plan Assessment: Status post gastric bypass PLAN: Dietary recommendations and outpatient follow-up Resolved Hospital Problems as of 04/26/2018 None FOLLOW-UP APPOINTMENTS ALREADY SCHEDULED WITH A [facility] PROVIDER: Future Appointments Date Time Provider Department Center 04/28/2018 11:30 AM Luis Simons [facility] 06/08/2018 11:25 AM Ty [facility] 06/12/2018 2:20 PM Mani [facility] DISCHARGE MEDICATION: Current Discharge Medication List START taking these medications amoxicillin (POLYMOX, AMOXIL) 500 mg Take 500 mg by mouth every 8 hours. Qty: 27 capsule Refills: 0 ciprofloxacin HCl (CIPRO) 500 mg Take 500 mg by mouth twice daily. Qty: 18 tablet Refills: 0 CONTINUE these medications which have NOT CHANGED ergocalciferol, vitamin D2, (VITAMIN D2 ORAL) Take by mouth. lisinopril 2.5 mg Take 2.5 mg by mouth every evening. Qty: 30 tablet Refills: 5 Associated Diagnoses:Essential hypertension omeprazole (PriLOSEC) 20 mg Take 20 mg by mouth once daily. Qty: 30 capsule Refills: 5 Associated Diagnoses:Gastroesophageal reflux disease without esophagitis docusate sodium (COLACE) 100 mg Take 100 mg by mouth once daily as needed for Constipation. Qty: 30 capsule Refills: 5 Associated Diagnoses:Constipation, unspecified constipation type sodium hypochlorite (DAKIN'S SOLUTION) 0.125 % soln Dakin's moistened gauze packing every other day to wound for bacterial control. Qty: 473 mL Refills: 2 Associated Diagnoses:Venous stasis ulcer of right lower leg with edema of right lower leg (HCC) warfarin (COUMADIN) 3 mg Take 3 mg by mouth daily as directed. Patient is taking 2mg Tuesday and and 3mg other days. gabapentin (NEURONTIN) 300 mg Take 300 mg by mouth twice daily. Qty: 180 capsule Refills: 1 Associated Diagnoses:Polyneuropathy (HCC) ASCORBIC ACID (VITAMIN C ORAL) 1 tablet Take 1 tablet by mouth twice daily. silver sulfADIAZINE (SILVADENE) 1 % cream Apply to leg wounds as directed. 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 aspirin, enteric coated (ASPIRIN, ENTERIC COATED) 81 mg Take 81 mg by mouth every evening. therapeutic multivitamin w/ iron (THERAGRAN-M) 1 tablet Take 1 tablet by mouth once daily. levothyroxine (SYNTHROID) 100 mcg Take 100 mcg by mouth once daily. Take on empty stomach. For Thyroid. Qty: 30 tablet Refills: 11 COMPOUNDED PRESCRIPTION Calcium Alginate 4x4 Dressing, change daily Dx: Blister left leg with infection S80.822A, L08.9; Lymphedema I89.0. Wound dimensions: 4 x 3 cm Qty: 14 Each Refills: 0 Zinc Sulfate 220 mg Take 220 mg by mouth once daily. Qty: 14 tablet Refills: 0 Associated Diagnoses:Non-pressure chronic ulcer of right lower leg with fat layer exposed (HCC) STOP taking these medications spironolactone (ALDACTONE) 50 mg Comments: Reason for Stopping: metOLAzone (ZAROXOLYN) 5 mg Comments: Reason for Stopping: metoprolol tartrate (short acting) (LOPRESSOR) 12.5 mg Comments: Reason for Stopping: furosemide (LASIX) 80 mg Comments: Reason for Stopping: TIME OF CARE: Discharge Management: I personally spent greater than 30 minutes involved in the discharge management of this patient. SIGNATURE: Khai Edgar MD PAGER/CONTACT #: DATE: April 26, 2018 TIME: 9:36 AM CBC Collected: 04/26/2018 Status: F Source: VICTOR 5:48 AM [facility] OTHER CAMPUS REPOSITORY TYPE CODE TESTS RESULT OUT OF REFERENCE UNITS RANGE LAB WBC 3.70-11.00 k/uL WBC 6.09 LAB RBC 3.90-5.20 m/uL Low RBC 3.82 LAB HGB 11.5-15.5 g/dL Low Hemoglobin 10.6 LAB HCT 36.0-46.0 % Low Hematocrit 35.4 LAB MCV 80.0-100.0 fL MCV 92.7 LAB MCH 26.0-34.0 pG MCH 27.7 LAB MCHC 30.5-36.0 g/dL Low MCHC 29.9 LAB RDWCV 11.5-15.0 % RDW-CV High 16.5 LAB PLTCT 150-400 k/uL Platelet Count 251 LAB MPV 9.0-12.7 fL MPV 10.3 Performed By: #### CBC, CMP #### [facility] [address] [facility] [phone] COMP METABOLIC PANEL Collected: 04/26/2018 Status: F Source: VICTOR 5:48 AM [facility] OTHER CAMPUS REPOSITORY TYPE CODE TESTS RESULT OUT OF REFERENCE UNITS RANGE LAB TP 6.3-8.0 g/dL Protein, Total 7.3 LAB ALB 3.9-4.9 g/dL Low Albumin 2.8 LAB CA 8.5-10.2 mg/dL Calcium, Total 8.5 LAB TBIL 0.2-1.3 mg/dL Bilirubin, Total 0.3 LAB ALKP 32-117 U/L Alkaline Phosphatase 66 LAB AST 13-35 U/L AST 25 LAB GLU 74-99 mg/dL Glucose 94 Result Comment: The [place] [employer] (ADA) provides guidance for cutoff values for fasting glucose and random glucose. The ADA defines fasting as no caloric intake for at least 8 hours. Fas ting plasma glucose results between 100 to 125 mg/dL indicate increased risk for diabetes (prediabetes). Fasting plasma glucose results greater than or equal to 126 mg/dL meet the criteria for diagnosis of diabetes. In the absence of unequivocal hyperglycemia, results should be confirmed by repeat testing. In a patient with classic symptoms of hyperglycemia or hyperglycemic crisis, random plasma glucose results greater than or equal to 200 mg/dL meet the criteria for diagnosis of diabetes. Reference: Standards of Medical Care in Diabetes 2016, [place] [employer]. Diabetes Care. 2016.39(Suppl 1). LAB BUN 7-21 mg/dL BUN High 27 LAB CRET 0.58-0.96 mg/dL Creatinine High 1.31 LAB NA 136-144 mmol/L Sodium 136 LAB K 3.7-5.1 mmol/L Potassium 4.8 LAB CL 97-105 mmol/L Chloride 98 LAB CO2 22-30 mmol/L CO2 High 32 LAB AGAP 9-18 mmol/L Low Anion Gap 6 LAB ALT 7-38 U/L ALT 9 LAB GFRAA eGFR- Amer. 47 LAB GFRNAA . eGFR-All Other Races 39 Result Comment: eGFR (Estimated GFR) Units of measure: mL/min/1.73 meters squared eGFR is derived from the reexpressed MDRD Study equation using the following parameters: serum creatinine, age, gender and race. The creatinine assay has been calibrated to be traceable to IDMS. An eGFR <60 mL/min/1.73m2 for >3 months is consistent with chronic kidney disease. Refer to KDOQI guidelines for clinical interpretation. In patients with unstable renal function, e.g. those with acute kidney injury, the eGFR may not accurately reflect actual GFR. Performed By: #### CBC, CMP #### [facility] [address] [facility] [phone] PROTIME Collected: 04/26/2018 Status: F Source: [facility] 5:48 AM CLINIC OTHER CAMPUS REPOSITORY TYPE CODE TESTS RESULT OUT OF RANGE REFERENCE UNITS LAB PSEC 9.7-13.0 sec High PT Sec 21.7 LAB INR 0.9-1.3 High PT INR 2.2 Result Comment: Vitamin K Antagonist (VKA) Therapeutic Range: INR 2 to 3 (Target INR of 2.5) Note: For patients treated with VKA drugs, such as warfarin, the [place] [employer] 2012 Guideline recommends a therapeutic INR range of 2 to 3 (target INR of 2.5). This recommendation includes high-risk patients with antiphospholipid syndrome with previous arterial or venous thromboembolism, current-generation mechanical or bioprosthetic aortic heart valve replacement. Note: Patients with mechanical aortic valve replacement and additional risk factors for thromboembolic events (atrial fibrillation, previous thromboembolism, LV dysfunction, hypercoagulable conditions) or an older generation mechanical AVR (i.e., ball in-Cage) or any mechanical MVR should have a INR therapeutic range of 2.5 to 3.5 (target INR of 3). Shweta SALOMON, et al. Chest 2012, 141:7S-47S Geenvieve ESTRADA, et al. [facility] 2017, 70: 252-289 Performed By: #### PT #### [facility] [address] [facility] [phone] PT ED Observed: 04/25/2018 Status: COMPLETED Source: [facility] 2:55 PM CLINIC OTHER [place] REPOSITORY HNO ID: [id number] Author: Tia Feldman (Pharmacist) Service: Pharmacy Author Type: Pharmacist Type: Patient Education Filed: 04/25/2018 3:05 PM Note Text: PHARMACY WARFARIN EDUCATION Patient Name: Rosa Beltran Account #: Data Unavailable Admission Date: 04/20/2018 7:30 PM Date of Contact: April 25, 2018 Time of Contact: 2:56 PM Patient new to warfarin? No: Previous (home) dosage: 3 mg daily Outpatient follow-up plan: Follow-up with primary physician Indication for warfarin: atrial fibrillation Target INR range: 2.0 - 3.0 (Target 2.5) Patient declined warfarin education. Patient stated she has been on warfarin for 15 years. Abdulkadir Le (Claims Adjuster Supervisor) Preceptor Addendum: This case has been reviewed and discussed with the student accounts coordinator. I agree with the assessment/plan described by the student. Changes and additions to the details in the note are indicated by italics and . TIA FELDMAN, PHARMACIST NUTRITION Observed: 04/25/2018 Status: COMPLETED Source: [facility] 2:12 PM [facility] OTHER [place] REPOSITORY HNO ID: [id number] Author: Radha Caceres Service: Nutrition Therapy Author Type: Registered Dietitian Type: Nutrition Filed: 04/25/2018 2:14 PM Note Text: NUTRITION THERAPY SCREENING NOTE SERVICE DATE: 04/25/2018 SERVICE TIME: 1:45 pm NUTRITION CARE PLAN Patient's weight is stable and nutritional intake is adequate. Patient is not at risk for malnutrition at this time. Intervention: Monitor oral intake Will follow within 7 days or as consulted Discharge Nutrition Recommendations: Diet: Heart Healthy Present Diet Order: Heart Healthy 2 gm Na Admission Weight: 96.6 kg (212 lb 15.4 oz) Current Weight: 96.6 kg (212 lb 15.4 oz) Body mass index is 36.56 kg/m?. class 2 obesity Weight has not changed. MNT Billing Type: Initial Assess/15 min 2 units SIGNATURE: Radha Caceres RD, GERTRUDIS PATIENT NAME: Rosa Beltran DATE: April 25, 2018 TIME: 2:12 PM PAGER: PROGRESS Observed: 04/25/2018 Status: COMPLETED Source: [facility] 1:57 PM CLINIC OTHER CAMPUS REPOSITORY HNO ID: [id number] Author: Khai Edgar MD Service: Hospital Medicine Author Type: Physician Type: Progress Notes Filed: 04/25/2018 1:57 PM Note Text: SERVICE DATE: 04/25/2018 SERVICE TIME: 1:57 PM HOSPITAL MEDICINE PROGRESS NOTE NIGHT AND WEEKEND COVERAGE: Nights: Please contact pager [phone]. Reason for Admission/Observation: Chronic venous stasis ulcer with the acute superimposed cellulitis HOSPITAL DAY ZERO: 04/20/2018 Presentation: 82 Y F with PMHx of venous stasis ulcer RLE, CAD s/p PCI, AF on coumadin, Pulm HTN,?HTN, HLD, BEBA, RA, hypothyroid??who is [facility] with chronic RLE wounds with suspected acute cellulitis with elevated wbc. She was admitted last month, seen by ID, podiatry, had debridement in pt and as out pt 2 weeks ago. She does have [facility] who noticed worsening signs of infection today so sent her to ED. Consultants: Dr. Roselyn Lynn Disposition: [facility] facility SUBJECTIVE Interval HPI:No chest pain or shortness of breath. Intermittent hypotension stopping beta louann and resuming ANKIT inhibitor. OBJECTIVE Reviewed lines, drains, AND airways. Need to be continued . BP 111/68 Pulse 61 Temp 36.4 ?C (97.5 ?F) (Oral) Resp 20 Ht 162.6 cm (5' 4) Wt 96.6 kg (212 lb 15.4 oz) SpO2 97% BMI 36.56 kg/m? GENERAL: Alert, no distress, cooperative NECK: No Jugulovenous distention LUNGS: Clear respiratory distress -No CARDIAC: Irregularly irregular with variable S-1 without murmur, rub, or gallop ABDOMEN: Abdomen soft, non-tender, BS normal, No masses or organomegaly EXTREMITIES:no edema No cords - examined wound with podiatry there is no cellulitis left and the base is improving though there is some eschar posteriorly. NEURO: Grossly normal cognition, motor function, and cranial nerves. DATA: Diagnostic tests reviewed for today's visit: Most recent labs Overview was reviewed. Pulse ox Most recent Xrays/CT Monitor resumed as having to stop her beta louann because of hypotension CARE COORDINATION: No Patient Care Coordination Note on file. ASSESSMENT AND PLAN Assessment AND Plan, all Hosp Problems Active Hospital Problems as of 04/25/2018 Noted - Resolved A Venous stasis ulcer of right lower leg with edema of right lower leg (HCC) 04/11/2018 - Present Current Assessment AND Plan assessment: White count and temperature are normal. Superficial debridement of the wound today and the patient should be able to go on a twice daily pressure dressing. This would not be able to be done by home health care due to the scheduling time of 12 hours apart. Extensive discussion with the patient. Plan: Discharge tomorrow and hopefully patient will choose detention facility on oral antibiotics B Chronic atrial fibrillation (HCC) 10/08/2016 - Present Current Assessment AND Plan Assessment: No active CHF will resume rate control with beta louann when her pressure stabilized and anticoagulation may need adjusted tomorrow PLAN: no documented tachycardia off of beta louann C Anticoagulation goal of INR 2 to 3 04/23/2018 - Present Current Assessment AND Plan Recent Labs 04/25/18 1251 04/24/18 0555 04/23/18 0426 INR 2.5* 2.9* 2.6* Assessment: INR is therapeutic PLAN: Monitor daily INR D Hypotension 04/24/2018 - Present Current Assessment AND Plan Assessment: stop diuretics ANKIT inhibitor and beta louann initially. Resuming ANKIT inhibitor today. PLAN: monitor blood pressure E Pressure injury of skin, stage 2 04/25/2018 - Present Current Assessment AND Plan Assessment: Stage II coccygeal ulcer present on arrival. Patient refuses to turn side to side and with her obesity and lack of movement she is a set up to have this type pressure injury. PLAN: Continue to encourage the patient to let nursing staff turn her. The nurse and I had long discussion with the patient on 04/24. M Class 2 obesity in adult 04/23/2018 - Present Current Assessment AND Plan Assessment: Status post gastric bypass PLAN: Dietary recommendations and outpatient follow-up Medication and Non-Pharmacologic VTE Prophylaxis/Anticoagulants Anticoagulant AND Antiplatelet Medications Start Dose Route Frequency Ordered Stop 04/20/182099 warfarin 3 mg tab(s) (COUMADIN) 3 mg ORAL DAILY 04/20/182048 -- 04/20/182099 aspirin, enteric coated 81 mg tab(s) (ASPIRIN, ENTERIC COATED) 81 mg ORAL DAILY 04/20/182048 -- 04/20/182099 vte current anticoag therapy (fl,oh) 04/20/182044 vte non-pharmacologic prophylaxis - none indicated (fl,oh) VTE Prophylaxis: VTE prophylaxis appropriate Plan of care discussed with: Patient, Case Management and RN SIGNATURE: Khai Edgar MD PATIENT NAME: Rosa Beltran DATE: April 25, 2018 TIME: 1:57 PM PAGER/CONTACT #: CONSULT PROG Observed: 04/25/2018 Status: COMPLETED Source: [facility] 1:41 PM CLINIC OTHER CAMPUS REPOSITORY O ID: [id number] Author: Heather Lynn Service: Infectious Disease Author Type: Physician Type: Consult Progress Note Filed: 04/25/2018 1:42 PM Note Text: INFECTIOUS DISEASE PROGRESS NOTE Patient Name: Rosa Beltran Date: 04/25/2018 ASSESSMENT: 1. Right leg worsening wound infection. Her prior cultures have shown polymicrobial sanchez including Pseudomonas, ampicillin susceptible Enterococcus, Proteus, and MSSA. MRI neg for osteomyelitis. 2. Right lower extremity cellulitis, likely due to #1. 3. Sepsis, present on admission, likely due to #1 and 2. 4. Leukocytosis, which has improved, likely due to #1 and 2. 5. Peripheral arterial disease. 6. Rheumatoid arthritis. 7. Noncompliance. 8. Coronary artery disease. 9. Hypothyroidism. 10.Chronic obstructive pulmonary disease. PLAN: Keep zosyn D/c plan on po cipro (500mg bid) and amoxicillin (500mg tid) - plan till 05/05/18 Wound care INTERVAL HISTORY: ROS done with pt/RN and negative unless stated. No f/c/n/v/d. Rev course with podiatry - wound better. MEDICATIONS: reviewed. Current hospital medications: piperacillin-tazobactam 3.375 g in dextrose (iso-osmotic) 50 mL (ZOSYN) 3.375 g INTRAVENOUS q 8 H levothyroxine 100 mcg tab(s) (SYNTHROID) 100 mcg ORAL DAILY (6 AM) potassium chloride 40 mEq in lactated Ringers 1,000 mL INTRAVENOUS CONTINUOUS acetaminophen 650 mg tab(s) (TYLENOL) 650 mg ORAL q 6 H PRN warfarin 3 mg tab(s) (COUMADIN) 3 mg ORAL DAILY gabapentin 300 mg cap(s) (NEURONTIN) 300 mg ORAL BID docusate sodium 100 mg cap(s) (COLACE) 100 mg ORAL DAILY PRN therapeutic multivitamin with iron (THERAGRAN-M) 1 tablet ORAL DAILY sodium hypochlorite 0.125 % (DAKIN'S QUARTER STRENGTH) TOPICAL DAILY aspirin, enteric coated 81 mg tab(s) (ASPIRIN, ENTERIC COATED) 81 mg ORAL DAILY 0.9% NaCl 3-5 mL 3-5 mL INTRAVENOUS q 12 H ondansetron orally disintegrating 4 mg tab(s) (ZOFRAN ODT) 4 mg ORAL q 6 H PRN ondansetron (PF) 4 mg injection (ZOFRAN) 4 mg INTRAVENOUS q [address] 20 mg tab(s) (PROTONIX) 20 mg ORAL DAILY (6 AM) PHYSICAL EXAM: Vital signs: BP 111/68 Pulse 61 Temp 36.4 ?C (97.5 ?F) (Oral) Resp 20 Ht 162.6 cm (5' 4) Wt 96.6 kg (212 lb 15.4 oz) SpO2 97% BMI 36.56 kg/m? General: alert, oriented, NAD Lungs: bilaterally clear to auscultation Heart: regular rate and rhythm Abdomen: soft, non tender, non distended, BS+ Extremities: no swollen joints RLE edema, erythema better. Dressing + Skin: no rash IV sites - wnl Lab data: reviewed Recent Labs 04/25/18 1251 04/25/18 0643 04/24/18 0555 04/23/18 0426 WBC -- 5.92 5.71 7.28 HB -- 10.7* 10.1* 10.6* PLT -- 241 231 217 INR 2.5* -- 2.9* 2.6* NA -- 134* 135* 134* K -- 4.9 4.8 3.8 CO2 -- 31* 35* 32* BUN -- 28* 32* 32* CREAT -- 1.22* 1.51* 1.18* AST -- 26 22 24 ALT -- 9 7 7 TBILI -- 0.4 0.3 0.4 ALKPHOS -- 65 56 61 Microbiology data: reviewed Imaging data: reviewed Heather Lynn MD Pager: PROTIME Collected: 04/25/2018 Status: F Source: [facility] 12:51 PM [facility] OTHER CAMPUS REPOSITORY TYPE CODE TESTS RESULT OUT OF RANGE REFERENCE UNITS LAB PSEC 9.7-13.0 sec High PT Sec 24.9 LAB INR 0.9-1.3 High PT INR 2.5 Result Comment: Vitamin K Antagonist (VKA) Therapeutic Range: INR 2 to 3 (Target INR of 2.5) Note: For patients treated with VKA drugs, such as warfarin, the [place] [employer] 2012 Guideline recommends a therapeutic INR range of 2 to 3 (target INR of 2.5). This recommendation includes high-risk patients with antiphospholipid syndrome with previous arterial or venous thromboembolism, current-generation mechanical or bioprosthetic aortic heart valve replacement. Note: Patients with mechanical aortic valve replacement and additional risk factors for thromboembolic events (atrial fibrillation, previous thromboembolism, LV dysfunction, hypercoagulable conditions) or an older generation mechanical AVR (i.e., ball in-Cage) or any mechanical MVR should have a INR therapeutic range of 2.5 to 3.5 (target INR of 3). Guyatt GH, et al. Chest 2012, 141:7S-47S Genevieve RA, et al. [facility] 2017, 70: 252-289 Performed By: #### PT #### [facility] [address] [place] [address] CONSULT PROG Observed: 04/25/2018 Status: COMPLETED Source: [facility] 9:02 AM [facility] OTHER [place] REPOSITORY HNO ID: [id number] Author: Chintan Dempsey DPM Service: Podiatry Author Type: Physician Type: Consult Progress Note Filed: 04/25/2018 11:55 AM Note Text: CONSULT PROGRESS NOTE SERVICE DATE: 04/25/2018 SERVICE TIME: 900 CONSULTING SERVICE: POD SURG Subjective INTERVAL HPI: Pt seen and examined bedside. Cont R LE pain, but controlled. Denies N/V/F/C/SOB. Current hospital medications: piperacillin-tazobactam 3.375 g in dextrose (iso-osmotic) 50 mL (ZOSYN) 3.375 g INTRAVENOUS q 8 H levothyroxine 100 mcg tab(s) (SYNTHROID) 100 mcg ORAL DAILY (6 AM) potassium chloride 40 mEq in lactated Ringers 1,000 mL INTRAVENOUS CONTINUOUS acetaminophen 650 mg tab(s) (TYLENOL) 650 mg ORAL q 6 H PRN warfarin 3 mg tab(s) (COUMADIN) 3 mg ORAL DAILY gabapentin 300 mg cap(s) (NEURONTIN) 300 mg ORAL BID docusate sodium 100 mg cap(s) (COLACE) 100 mg ORAL DAILY PRN therapeutic multivitamin with iron (THERAGRAN-M) 1 tablet ORAL DAILY sodium hypochlorite 0.125 % (DAKIN'S QUARTER STRENGTH) TOPICAL DAILY aspirin, enteric coated 81 mg tab(s) (ASPIRIN, ENTERIC COATED) 81 mg ORAL DAILY 0.9% NaCl 3-5 mL 3-5 mL INTRAVENOUS q 12 H ondansetron orally disintegrating 4 mg tab(s) (ZOFRAN ODT) 4 mg ORAL q 6 H PRN ondansetron (PF) 4 mg injection (ZOFRAN) 4 mg INTRAVENOUS q [address] 20 mg tab(s) (PROTONIX) 20 mg ORAL DAILY (6 AM) Objective PHYSICAL EXAM: Physical Exam Performed: Vasc: DP/PT +1/4 Neuro: Intact epicritic sensation Derm: Right lateral posterior calf ulceration 7.0x5.0x0.2cm 80% granular with 20% central proximal necrotic, fibrotic area, No probe to bone, superifical, tenderness with palpation, mild serosang drainage, no malodor, mild erythema/edema R LE. ?Right medial ulceration 4.0x3.0x0.5cm, ?100%fibrotic, mild serosang, mild jennifer-wound erythema, edema decreased, stable. Post- debridement measures 7.6x5.2x0.3cm. Musc: m/s +4/5 BP 132/65 Pulse 71 Temp (Src) 97.5 (Oral) Resp 20 Ht 5' 4 (1.63m) Wt 212 lb 15.4 oz (96.6kg) SpO2 94% BMI 36.54 kg/(m2). DATA: Diagnostic tests reviewed for today's visit: Most recent labs and imaging results. CBC, Coags, BMP, Mg, Phos Recent Labs 04/25/18 0643 04/24/18 0555 04/23/18 0426 WBC 5.92 5.71 7.28 HB 10.7* 10.1* 10.6* HCT 36.5 33.9* 34.1* PLT 241 231 217 INR -- 2.9* 2.6* NA 134* 135* 134* K 4.9 4.8 3.8 CHLOR 94* 95* 93* CO2 31* 35* 32* BUN 28* 32* 32* CREAT 1.22* 1.51* 1.18* GLUC 88 96 91 CA 8.3* 8.3* 8.6 Impression/Recommendations Venous stasis ulceration R LE, cellulitis, chronic ulceration, R LE pain Leukocytosis, improved Chronic A fib Hypothyroidism CAD COPD HTN HLD BEBA RA ? Pt Seen and examined bedside, Cellulitis improved greatly since admission with proper wound care and abx Bedside debridement today sharp, excisional, non-selective, down to level of fat, subq with currette and mechanical debridement with gauze, washed with dakins, dressed with xeroform, 4x4s, abd, kerlix, ankit compression. Post-debridement measurement above Cont wound care while in house Concern for poor wound care prior to admission Cont Wound care ordered, wash with dakins, xeroform, 4x4s, abds, kerlix, ANKIT with mild compression, BID Apply heel protectors to offload MRI reviewed No OM, no concern for deep abscess, superficial wound, cont local wound care No podiatry surgical plans at this time Cont abx per ID recs No plans for Podiatry ID in [place] Follow up in [facility] ?wound is so much better with just debridmeent and wound care Recommended SNF daily wound care and compression If she allows Chintan Dempsey DPM 11:55 AM April 25, 2018 SIGNATURE: Jessica Yeager DPM PATIENT NAME: Rosa Beltran DATE: April 25, 2018 TIME: 9:03 AM PAGER: COMP METABOLIC PANEL Collected: 04/25/2018 Status: F Source: [facility] 6:43 AM CLINIC OTHER CAMPUS REPOSITORY TYPE CODE TESTS RESULT OUT OF REFERENCE UNITS RANGE LAB TP 6.3-8.0 g/dL Protein, Total 7.1 LAB ALB 3.9-4.9 g/dL Low Albumin 2.9 LAB CA 8.5-10.2 mg/dL Low Calcium, Total 8.3 LAB TBIL 0.2-1.3 mg/dL Bilirubin, Total 0.4 LAB ALKP 32-117 U/L Alkaline Phosphatase 65 LAB AST 13-35 U/L AST 26 LAB GLU 74-99 mg/dL Glucose 88 Result Comment: The [place] [employer] (ADA) provides guidance for cutoff values for fasting glucose and random glucose. The ADA defines fasting as no caloric intake for at least 8 hours. Fas ting plasma glucose results between 100 to 125 mg/dL indicate increased risk for diabetes (prediabetes). Fasting plasma glucose results greater than or equal to 126 mg/dL meet the criteria for diagnosis of diabetes. In the absence of unequivocal hyperglycemia, results should be confirmed by repeat testing. In a patient with classic symptoms of hyperglycemia or hyperglycemic crisis, random plasma glucose results greater than or equal to 200 mg/dL meet the criteria for diagnosis of diabetes. Reference: Standards of Medical Care in Diabetes 2016, [place] [employer]. Diabetes Care. 2016.39(Suppl 1). LAB BUN 7-21 mg/dL BUN High 28 LAB CRET 0.58-0.96 mg/dL Creatinine High 1.22 LAB NA 136-144 mmol/L Low Sodium 134 LAB K 3.7-5.1 mmol/L Potassium 4.9 LAB CL 97-105 mmol/L Low Chloride 94 LAB CO2 22-30 mmol/L CO2 High 31 LAB AGAP 9-18 mmol/L Anion Gap 9 LAB ALT 7-38 U/L ALT 9 LAB GFRAA eGFR- Amer. 51 LAB GFRNAA . eGFR-All Other Races 42 Result Comment: eGFR (Estimated GFR) Units of measure: mL/min/1.73 meters squared eGFR is derived from the reexpressed MDRD Study equation using the following parameters: serum creatinine, age, gender and race. The creatinine assay has been calibrated to be traceable to IDMS. An eGFR <60 mL/min/1.73m2 for >3 months is consistent with chronic kidney disease. Refer to KDOQI guidelines for clinical interpretation. In patients with unstable renal function, e.g. those with acute kidney injury, the eGFR may not accurately reflect actual GFR. Performed By: #### CMP, CBC #### [facility] [address] [facility] [phone] CBC Collected: 04/25/2018 Status: F Source: [facility] 6:43 AM [facility] REPOSITORY TYPE CODE TESTS RESULT OUT OF REFERENCE UNITS RANGE LAB WBC 3.70-11.00 k/uL WBC 5.92 LAB RBC 3.90-5.20 m/uL RBC 3.94 LAB HGB 11.5-15.5 g/dL Low Hemoglobin 10.7 LAB HCT 36.0-46.0 % Hematocrit 36.5 LAB MCV 80.0-100.0 fL MCV 92.6 LAB MCH 26.0-34.0 pG MCH 27.2 LAB MCHC 30.5-36.0 g/dL Low MCHC 29.3 LAB RDWCV 11.5-15.0 % RDW-CV High 16.5 LAB PLTCT 150-400 k/uL Platelet Count 241 LAB MPV 9.0-12.7 fL MPV 10.4 Performed By: #### CMP, CBC #### [facility] [address] [place] [address] PROGRESS Observed: 04/24/2018 Status: COMPLETED Source: [facility] 12:42 PM [facility] REPOSITORY HNO ID: [id number] Author: Khai Edgar MD Service: Hospital Medicine Author Type: Physician Type: Progress Notes Filed: 04/24/2018 12:44 PM Note Text: SERVICE DATE: 04/24/2018 SERVICE TIME: 12:42 PM HOSPITAL MEDICINE PROGRESS NOTE NIGHT AND WEEKEND COVERAGE: Nights: Please contact pager [phone]. Reason for Admission/Observation: Chronic venous stasis ulcer with the acute superimposed cellulitis HOSPITAL DAY ZERO: 04/20/2018 Presentation: 82 Y F with PMHx of venous stasis ulcer RLE, CAD s/p PCI, AF on coumadin, Pulm HTN,?HTN, HLD, BEBA, RA, hypothyroid??who is [facility] with chronic RLE wounds with suspected acute cellulitis with elevated wbc. She was admitted last month, seen by ID, podiatry, had debridement in pt and as out pt 2 weeks ago. She does have [facility] who noticed worsening signs of infection today so sent her to ED. Consultants: Dr. Roselyn Lynn Disposition: To be determined SUBJECTIVE Interval HPI:No chest pain or shortness of breath. Intermittent hypotension stopping beta louann and ANKIT inhibitor and will resume these as her blood pressure stays above 100. OBJECTIVE Reviewed lines, drains, AND airways. Need to be continued . BP 110/85 Pulse 60 Temp 36.5 ?C (97.7 ?F) (Oral) Resp 16 Ht 162.6 cm (5' 4) Wt 96.6 kg (212 lb 15.4 oz) SpO2 95% BMI 36.56 kg/m? GENERAL: Alert, no distress, cooperative NECK: No Jugulovenous distention LUNGS: Clear respiratory distress -No CARDIAC: Irregularly irregular with variable S-1 without murmur, rub, or gallop ABDOMEN: Abdomen soft, non-tender, BS normal, No masses or organomegaly EXTREMITIES:no edema No cords - examined wound with podiatry there is no cellulitis left and the base is improving though there is some eschar posteriorly. NEURO: Grossly normal cognition, motor function, and cranial nerves. DATA: Diagnostic tests reviewed for today's visit: Most recent labs Overview was reviewed. Pulse ox Most recent Xrays/CT Monitor resumed as having to stop her beta louann because of hypotension CARE COORDINATION: No Patient Care Coordination Note on file. ASSESSMENT AND PLAN Assessment AND Plan, all Hosp Problems Active Hospital Problems as of 04/24/2018 Noted - Resolved A Venous stasis ulcer of right lower leg with edema of right lower leg (HCC) 04/11/2018 - Present Current Assessment AND Plan Per Dr. Lynn: ASSESSMENT: 1. Right leg worsening wound infection. ?Her prior cultures have shown ?polymicrobial sanchez including Pseudomonas, ampicillin susceptible ?Enterococcus, Proteus, and MSSA. ?MRI neg for osteomyelitis. ? 2. Right lower extremity cellulitis, likely due to #1. ? 3. Sepsis, present on admission, likely due to #1 and 2. ? 4. Leukocytosis, which has improved, likely due to #1 and 2. ? 5. Peripheral arterial disease. 6. Rheumatoid arthritis. 7. Noncompliance. 8. Coronary artery disease. 9. Hypothyroidism. 10.Chronic obstructive pulmonary disease. 11.Suspicion of left foot posterior and dorsal calcaneal fracture on her x-rays done at [facility]. ? [facility] Local wound care B Chronic atrial fibrillation (HCC) 10/08/2016 - Present Current Assessment AND Plan Assessment: No active CHF will resume rate control with beta louann when her pressure stabilized and anticoagulation may need adjusted tomorrow PLAN: Continue current therapy using digoxin if needed for rate control though at this point she's fine. C Anticoagulation goal of INR 2 to 3 04/23/2018 - Present Current Assessment AND Plan Recent Labs 04/24/18 0555 04/23/18 0426 04/22/18 0527 INR 2.9* 2.6* 2.2* Assessment: INR is therapeutic PLAN: Monitor daily INR M Class 2 obesity in adult 04/23/2018 - Present Current Assessment AND Plan Assessment: Status post gastric bypass PLAN: Dietary recommendations and outpatient follow-up Unprioritized Hypotension 04/24/2018 - Present Medication and Non-Pharmacologic VTE Prophylaxis/Anticoagulants Anticoagulant AND Antiplatelet Medications Start Dose Route Frequency Ordered Stop 04/20/182099 warfarin 3 mg tab(s) (COUMADIN) 3 mg ORAL DAILY 04/20/182048 -- 04/20/182099 aspirin, enteric coated 81 mg tab(s) (ASPIRIN, ENTERIC COATED) 81 mg ORAL DAILY 04/20/182048 -- 04/20/182099 vte current anticoag therapy (ak,ma) 04/20/182044 vte non-pharmacologic prophylaxis - none indicated (ak,ma) VTE Prophylaxis: VTE prophylaxis appropriate Plan of care discussed with: Patient, Case Management, RN and Other Podiatry SIGNATURE: Khai Edgar MD PATIENT NAME: Rosa Beltran DATE: April 24, 2018 TIME: 12:42 PM PAGER/CONTACT #: CONSULT PROG Observed: 04/24/2018 Status: COMPLETED Source: [facility] 11:48 AM [facility] OTHER CAMP[facility] REPOSITORY HNO ID: [id number] Author: Jessica Yeager Service: Podiatry Author Type: Resident Type: Consult Progress Note Filed: 04/24/2018 11:54 AM Note Text: CONSULT PROGRESS NOTE SERVICE DATE: 04/24/2018 SERVICE TIME: 1130 CONSULTING SERVICE: POD SURG Subjective INTERVAL HPI: Pt seen and examined bedside. Pain controlled. Denies N/V/F/C/SOB Current hospital medications: levothyroxine 100 mcg tab(s) (SYNTHROID) 100 mcg ORAL DAILY (6 AM) potassium chloride 40 mEq in lactated Ringers 1,000 mL INTRAVENOUS CONTINUOUS acetaminophen 650 mg tab(s) (TYLENOL) 650 mg ORAL q 6 H PRN piperacillin-tazobactam 3.375 g in dextrose (iso-osmotic) 50 mL (ZOSYN) 3.375 g INTRAVENOUS q 6 H warfarin 3 mg tab(s) (COUMADIN) 3 mg ORAL DAILY gabapentin 300 mg cap(s) (NEURONTIN) 300 mg ORAL BID docusate sodium 100 mg cap(s) (COLACE) 100 mg ORAL DAILY PRN therapeutic multivitamin with iron (THERAGRAN-M) 1 tablet ORAL DAILY sodium hypochlorite 0.125 % (DAKIN'S QUARTER STRENGTH) TOPICAL DAILY aspirin, enteric coated 81 mg tab(s) (ASPIRIN, ENTERIC COATED) 81 mg ORAL DAILY 0.9% NaCl 3-5 mL 3-5 mL INTRAVENOUS q 12 H ondansetron orally disintegrating 4 mg tab(s) (ZOFRAN ODT) 4 mg ORAL q 6 H PRN ondansetron (PF) 4 mg injection (ZOFRAN) 4 mg INTRAVENOUS q [address] 20 mg tab(s) (PROTONIX) 20 mg ORAL DAILY (6 AM) Objective PHYSICAL EXAM: Physical Exam Performed: Vasc: DP/PT +1/4 Neuro: Intact epicritic sensation Derm: Right lateral posterior calf ulceration 7.0x5.0x0.2cm 75% granular with 25% central proximal necrotic, fibrotic area, Skin is soft to the area, but does not probe, superifical, tenderness with palpation, mild serosang drainage, no malodor, mild erythema/edema R LE. ?Right medial ulceration 4.0x3.0x0.5cm, ?100%fibrotic, mild serosang, mild jennifer-wound erythema, edema decreased. ? Musc: m/s +4/5 BP 110/85 Pulse 60 Temp (Src) 97.7 (Oral) Resp 16 Ht 5' 4 (1.63m) Wt 212 lb 15.4 oz (96.6kg) SpO2 95% BMI 36.54 kg/(m2). DATA: Diagnostic tests reviewed for today's visit: Most recent labs and imaging results. CBC, Coags, BMP, Mg, Phos Recent Labs 04/24/18 0555 04/23/18 0426 04/22/18 0527 WBC 5.71 7.28 9.32 HB 10.1* 10.6* 10.7* HCT 33.9* 34.1* 35.1* PLT 231 217 205 INR 2.9* 2.6* 2.2* NA 135* 134* 136 K 4.8 3.8 3.6* CHLOR 95* 93* 96* CO2 35* 32* 30 BUN 32* 32* 33* CREAT 1.51* 1.18* 1.17* GLUC 96 91 89 CA 8.3* 8.6 8.4* Impression/Recommendations Venous stasis ulceration R LE, cellulitis, chronic ulceration, R LE pain Leukocytosis, improved Chronic A fib Hypothyroidism CAD COPD HTN HLD BEBA RA ? Pt Seen and examined bedside, Cellulitis improved greatly since admission with proper wound care and abx Cont wound care while in house Concern for poor wound care prior to admission Wound care ordered, wash with dakins, xeroform, 4x4s, abds, kerlix, ANKIT with mild compression, BID Apply heel protectors to offload MRI reviewed No OM or abscess No podiatry surgical plans at this time Cont abx per ID recs No plans for ID in [place] right now cont local wound SIGNATURE: Jessica Yeager DPM PATIENT NAME: Rosa Beltran DATE: April 24, 2018 TIME: 11:48 AM PAGER: CONSULT PROG Observed: 04/24/2018 Status: COMPLETED Source: [facility] 11:29 AM [facility] OTHER [facility] REPOSITORY HNO ID: [id number] Author: Heather Lynn Service: Infectious Disease Author Type: Physician Type: Consult Progress Note Filed: 04/24/2018 11:31 AM Note Text: INFECTIOUS DISEASE PROGRESS NOTE Patient Name: Rosa Beltran Date: 04/24/2018 ASSESSMENT: 1. Right leg worsening wound infection. Her prior cultures have shown polymicrobial sanchez including Pseudomonas, ampicillin susceptible Enterococcus, Proteus, and MSSA. MRI neg for osteomyelitis. 2. Right lower extremity cellulitis, likely due to #1. 3. Sepsis, present on admission, likely due to #1 and 2. 4. Leukocytosis, which has improved, likely due to #1 and 2. 5. Peripheral arterial disease. 6. Rheumatoid arthritis. 7. Noncompliance. 8. Coronary artery disease. 9. Hypothyroidism. 10.Chronic obstructive pulmonary disease. 11.Suspicion of left foot posterior and dorsal calcaneal fracture on her x-rays done at [facility]. PLAN: Keep zosyn D/c plan on po cipro and amoxicillin Will d/w podiatry - may need IANDD Wound care INTERVAL HISTORY: ROS done with pt/RN and negative unless stated. No f/c/n/v/d. MEDICATIONS: reviewed. Current hospital medications: levothyroxine 100 mcg tab(s) (SYNTHROID) 100 mcg ORAL DAILY (6 AM) potassium chloride 40 mEq in lactated Ringers 1,000 mL INTRAVENOUS CONTINUOUS acetaminophen 650 mg tab(s) (TYLENOL) 650 mg ORAL q 6 H PRN piperacillin-tazobactam 3.375 g in dextrose (iso-osmotic) 50 mL (ZOSYN) 3.375 g INTRAVENOUS q 6 H warfarin 3 mg tab(s) (COUMADIN) 3 mg ORAL DAILY gabapentin 300 mg cap(s) (NEURONTIN) 300 mg ORAL BID docusate sodium 100 mg cap(s) (COLACE) 100 mg ORAL DAILY PRN therapeutic multivitamin with iron (THERAGRAN-M) 1 tablet ORAL DAILY sodium hypochlorite 0.125 % (DAKIN'S QUARTER STRENGTH) TOPICAL DAILY aspirin, enteric coated 81 mg tab(s) (ASPIRIN, ENTERIC COATED) 81 mg ORAL DAILY 0.9% NaCl 3-5 mL 3-5 mL INTRAVENOUS q 12 H ondansetron orally disintegrating 4 mg tab(s) (ZOFRAN ODT) 4 mg ORAL q 6 H PRN ondansetron (PF) 4 mg injection (ZOFRAN) 4 mg INTRAVENOUS q [address] 20 mg tab(s) (PROTONIX) 20 mg ORAL DAILY (6 AM) PHYSICAL EXAM: Vital signs: BP 110/85 Pulse 60 Temp 36.5 ?C (97.7 ?F) (Oral) Resp 16 Ht 162.6 cm (5' 4) Wt 96.6 kg (212 lb 15.4 oz) SpO2 95% BMI 36.56 kg/m? General: alert, oriented, NAD Lungs: bilaterally clear to auscultation Heart: regular rate and rhythm Abdomen: soft, non tender, non distended, BS+ Extremities: no swollen joints RLE edema, erythema better. Dressing + Skin: no rash IV sites - wnl Lab data: reviewed Recent Labs 04/24/18 0555 04/23/18 0426 04/22/18 0527 WBC 5.71 7.28 9.32 HB 10.1* 10.6* 10.7* PLT 231 217 205 INR 2.9* 2.6* 2.2* NA 135* 134* 136 K 4.8 3.8 3.6* CO2 35* 32* 30 BUN 32* 32* 33* CREAT 1.51* 1.18* 1.17* AST 22 24 25 ALT 7 7 6* TBILI 0.3 0.4 0.6 ALKPHOS 56 61 88 Microbiology data: reviewed Imaging data: reviewed Heather Lynn MD Pager: CBC Collected: 04/24/2018 Status: F Source: [facility] 5:55 AM [facility] OTHER CAMPUS REPOSITORY TYPE CODE TESTS RESULT OUT OF REFERENCE UNITS RANGE LAB WBC 3.70-11.00 k/uL WBC 5.71 LAB RBC 3.90-5.20 m/uL Low RBC 3.69 LAB HGB 11.5-15.5 g/dL Low Hemoglobin 10.1 LAB HCT 36.0-46.0 % Low Hematocrit 33.9 LAB MCV 80.0-100.0 fL MCV 91.9 LAB MCH 26.0-34.0 pG MCH 27.4 LAB MCHC 30.5-36.0 g/dL Low MCHC 29.8 LAB RDWCV 11.5-15.0 % RDW-CV High 16.4 LAB PLTCT 150-400 k/uL Platelet Count 231 LAB MPV 9.0-12.7 fL MPV 10.4 Performed By: #### CBC, CMP #### [facility] [address] [place] [address] COMP METABOLIC PANEL Collected: 04/24/2018 Status: F Source: [facility] 5:55 AM [facility] OTHER CAMPUS REPOSITORY TYPE CODE TESTS RESULT OUT OF REFERENCE UNITS RANGE LAB TP 6.3-8.0 g/dL Protein, Total 6.8 LAB ALB 3.9-4.9 g/dL Low Albumin 2.7 LAB CA 8.5-10.2 mg/dL Low Calcium, Total 8.3 LAB TBIL 0.2-1.3 mg/dL Bilirubin, Total 0.3 LAB ALKP 32-117 U/L Alkaline Phosphatase 56 LAB AST 13-35 U/L AST 22 LAB GLU 74-99 mg/dL Glucose 96 Result Comment: The [place] [employer] (ADA) provides guidance for cutoff values for fasting glucose and random glucose. The ADA defines fasting as no caloric intake for at least 8 hours. Fas ting plasma glucose results between 100 to 125 mg/dL indicate increased risk for diabetes (prediabetes). Fasting plasma glucose results greater than or equal to 126 mg/dL meet the criteria for diagnosis of diabetes. In the absence of unequivocal hyperglycemia, results should be confirmed by repeat testing. In a patient with classic symptoms of hyperglycemia or hyperglycemic crisis, random plasma glucose results greater than or equal to 200 mg/dL meet the criteria for diagnosis of diabetes. Reference: Standards of Medical Care in Diabetes 2016, [place] [employer]. Diabetes Care. 2016.39(Suppl 1). LAB BUN 7-21 mg/dL BUN High 32 LAB CRET 0.58-0.96 mg/dL Creatinine High 1.51 LAB NA 136-144 mmol/L Low Sodium 135 LAB K 3.7-5.1 mmol/L Potassium 4.8 LAB CL 97-105 mmol/L Low Chloride 95 LAB CO2 22-30 mmol/L CO2 High 35 LAB AGAP 9-18 mmol/L Low Anion Gap 5 LAB ALT 7-38 U/L ALT 7 LAB GFRAA eGFR- Amer. 40 LAB GFRNAA . eGFR-All Other Races 33 Result Comment: eGFR (Estimated GFR) Units of measure: mL/min/1.73 meters squared eGFR is derived from the reexpressed MDRD Study equation using the following parameters: serum creatinine, age, gender and race. The creatinine assay has been calibrated to be traceable to IDMS. An eGFR <60 mL/min/1.73m2 for >3 months is consistent with chronic kidney disease. Refer to KDOQI guidelines for clinical interpretation. In patients with unstable renal function, e.g. those with acute kidney injury, the eGFR may not accurately reflect actual GFR. Performed By: #### CBC, CMP #### [facility] [address] [facility] [phone] PROTIME Collected: 04/24/2018 Status: F Source: [facility] 5:55 AM CLINIC OTHER CAMPUS REPOSITORY TYPE CODE TESTS RESULT OUT OF RANGE REFERENCE UNITS LAB PSEC 9.7-13.0 sec High PT Sec 28.7 LAB INR 0.9-1.3 High PT INR 2.9 Result Comment: Vitamin K Antagonist (VKA) Therapeutic Range: INR 2 to 3 (Target INR of 2.5) Note: For patients treated with VKA drugs, such as warfarin, the [place] [employer] 2012 Guideline recommends a therapeutic INR range of 2 to 3 (target INR of 2.5). This recommendation includes high-risk patients with antiphospholipid syndrome with previous arterial or venous thromboembolism, current-generation mechanical or bioprosthetic aortic heart valve replacement. Note: Patients with mechanical aortic valve replacement and additional risk factors for thromboembolic events (atrial fibrillation, previous thromboembolism, LV dysfunction, hypercoagulable conditions) or an older generation mechanical AVR (i.e., ball in-Cage) or any mechanical MVR should have a INR therapeutic range of 2.5 to 3.5 (target INR of 3). Shweta GH, et al. Chest 2012, 141:7S-47S Genevieve RA, et al. [facility] 2017, 70: 252-289 Performed By: #### PT #### [facility] [address] [place] [address] NURSING PROG Observed: 04/23/2018 Status: COMPLETED Source: [facility] 10:03 PM [facility] REPOSITORY HNO ID: [id number] Author: Timothy (Rn) ELENA Esposito Service: Nursing Author Type: Registered Nurse Type: Nursing Progress Note Filed: 04/23/2018 10:04 PM Note Text: Nursing Progress Note Patient Name: Rosa Beltran Patient Location: [id number] Daily Note: 2204 Dr. Lee called to clarify beta louann order with current BP/HR, LIP ordered to hold HS dose. This note was completed by: Timothy Esposito RN CONSULT PROG Observed: 04/23/2018 Status: COMPLETED Source: [facility] 7:14 PM [facility]IN[facility] OTHER CAMPUS REPOSITORY O ID: [id number] Author: Heather Lynn Service: Infectious Disease Author Type: Physician Type: Consult Progress Note Filed: 04/23/2018 7:16 PM Note Text: INFECTIOUS DISEASE PROGRESS NOTE Patient Name: Rosa Beltran Date: 04/23/2018 ASSESSMENT: 1. Right leg worsening wound infection. Her prior cultures have shown polymicrobial sanchez including Pseudomonas, ampicillin susceptible Enterococcus, Proteus, and MSSA. MRI neg for osteomyelitis. 2. Right lower extremity cellulitis, likely due to #1. 3. Sepsis, present on admission, likely due to #1 and 2. 4. Leukocytosis, which has improved, likely due to #1 and 2. 5. Peripheral arterial disease. 6. Rheumatoid arthritis. 7. Noncompliance. 8. Coronary artery disease. 9. Hypothyroidism. 10.Chronic obstructive pulmonary disease. 11.Suspicion of left foot posterior and dorsal calcaneal fracture on her x-rays done at [facility]. PLAN: Keep zosyn Follow final cx data Will d/w podiatry - may need IANDD Wound care INTERVAL HISTORY: ROS done with pt/RN and negative unless stated. No f/c/n/v/d. Per RN - still drainage on dressing change. MEDICATIONS: reviewed. Current hospital medications: levothyroxine 100 mcg tab(s) (SYNTHROID) 100 mcg ORAL DAILY (6 AM) potassium chloride 40 mEq in lactated Ringers 1,000 mL INTRAVENOUS CONTINUOUS acetaminophen 650 mg tab(s) (TYLENOL) 650 mg ORAL q 6 H PRN piperacillin-tazobactam 3.375 g in dextrose (iso-osmotic) 50 mL (ZOSYN) 3.375 g INTRAVENOUS q 6 H warfarin 3 mg tab(s) (COUMADIN) 3 mg ORAL DAILY gabapentin 300 mg cap(s) (NEURONTIN) 300 mg ORAL BID lisinopril 2.5 mg tab(s) (ZESTRIL, PRINIVIL) 2.5 mg ORAL DAILY metoprolol tartrate (short acting) 12.5 mg tab(s) (LOPRESSOR) 12.5 mg ORAL BID docusate sodium 100 mg cap(s) (COLACE) 100 mg ORAL DAILY PRN therapeutic multivitamin with iron (THERAGRAN-M) 1 tablet ORAL DAILY sodium hypochlorite 0.125 % (DAKIN'S QUARTER STRENGTH) TOPICAL DAILY aspirin, enteric coated 81 mg tab(s) (ASPIRIN, ENTERIC COATED) 81 mg ORAL DAILY 0.9% NaCl 3-5 mL 3-5 mL INTRAVENOUS q 12 H ondansetron orally disintegrating 4 mg tab(s) (ZOFRAN ODT) 4 mg ORAL q 6 H PRN ondansetron (PF) 4 mg injection (ZOFRAN) 4 mg INTRAVENOUS q [address] 20 mg tab(s) (PROTONIX) 20 mg ORAL DAILY (6 AM) PHYSICAL EXAM: Vital signs: BP 86/50 Pulse (!) 53 Temp 36.6 ?C (97.9 ?F) (Oral) Resp 18 Ht 162.6 cm (5' 4) Wt 96.6 kg (212 lb 15.4 oz) SpO2 98% BMI 36.56 kg/m? General: alert, oriented, NAD Lungs: bilaterally clear to auscultation Heart: regular rate and rhythm Abdomen: soft, non tender, non distended, BS+ Extremities: no swollen joints RLE edema, erythema better. Dressing + Skin: no rash IV sites - wnl Lab data: reviewed Recent Labs 04/23/18 0426 04/22/18 0527 04/21/18 0424 04/20/18211604/20/182111 WBC 7.28 9.32 14.27* -- -- HB 10.6* 10.7* 10.8* -- -- PLT 217 205 200 -- -- INR 2.6* 2.2* 2.0* -- 2.2* NA 134* 136 135* -- -- K 3.8 3.6* 3.6* -- -- CO2 32* 30 27 -- -- BUN 32* 33* 24* -- -- CREAT 1.18* 1.17* 1.02* -- -- AST 24 25 23 -- -- ALT 7 6* 7 -- -- TBILI 0.4 0.6 0.6 -- -- ALKPHOS 61 88 63 -- -- WSR -- -- -- -- 56* LACT -- -- -- 1.5 -- Microbiology data: reviewed Imaging data: reviewed Heather Lynn MD Pager: NURSING PROG Observed: 04/23/2018 Status: COMPLETED Source: [facility] 3:36 PM [facility] REPOSITORY HNO ID: [id number] Author: Sydni ParksRn) ELENA Harper Service: Nursing Author Type: Registered Nurse Type: Nursing Progress Note Filed: 04/23/2018 3:40 PM Note Text: Nursing Progress Note Patient Name: Rosa Beltran Patient Location: [place] [id number] Daily Note: 1537: Call placed to Dr. Edgar in regard to pt's low blood pressure. Verbal orders to hold evening metoprolol. This note was completed by: Sydni Harper RN PROGRESS Observed: 04/23/2018 Status: COMPLETED Source: [facility] 2:38 PM [facility] REPOSITORY HNO ID: [id number] Author: Khai Edgar MD Service: Hospital Medicine Author Type: Physician Type: Progress Notes Filed: 04/23/2018 2:39 PM Note Text: SERVICE DATE: 04/23/2018 SERVICE TIME: 2:38 PM HOSPITAL MEDICINE PROGRESS NOTE NIGHT AND WEEKEND COVERAGE: Nights: Please contact pager [phone]. Reason for Admission/Observation: Chronic venous stasis ulcer with the acute superimposed cellulitis HOSPITAL DAY ZERO: 04/20/2018 Presentation: 82 Y F with PMHx of venous stasis ulcer RLE, CAD s/p PCI, AF on coumadin, Pulm HTN,?HTN, HLD, BEBA, RA, hypothyroid??who is transferred from [facility] with chronic RLE wounds with suspected acute cellulitis with elevated wbc. She was admitted last month, seen by ID, podiatry, had debridement in pt and as out pt 2 weeks ago. She does have [facility] who noticed worsening signs of infection today so sent her to ED. Consultants: Dr. Roselyn Lynn Disposition: To be determined SUBJECTIVE Interval HPI:No chest pain or shortness of breath. Podiatry plans no IANDD or surgery only local wound care OBJECTIVE Reviewed lines, drains, AND airways. Need to be continued . BP 122/73 Pulse (!) 52 Temp 36.6 ?C (97.9 ?F) (Oral) Resp 16 Ht 162.6 cm (5' 4) Wt 96.6 kg (212 lb 15.4 oz) SpO2 96% BMI 36.56 kg/m? GENERAL: Alert, no distress, cooperative NECK: No Jugulovenous distention LUNGS: Clear respiratory distress -No CARDIAC: Irregularly irregular with variable S-1 without murmur, rub, or gallop ABDOMEN: Abdomen soft, non-tender, BS normal, No masses or organomegaly EXTREMITIES:no edema No cords - likely has fresh dressing on it from being seen by podiatry NEURO: Grossly normal cognition, motor function, and cranial nerves. DATA: Diagnostic tests reviewed for today's visit: Most recent labs Overview was reviewed. Pulse ox Most recent Xrays/CT Monitor his been stable atrial fibrillation and is discontinued CARE COORDINATION: No Patient Care Coordination Note on file. ASSESSMENT AND PLAN Assessment AND Plan, all Hosp Problems Active Hospital Problems as of 04/23/2018 Noted - Resolved A Venous stasis ulcer of right lower leg with edema of right lower leg (HCC) 04/11/2018 - Present Current Assessment AND Plan Per Dr. Lynn: ASSESSMENT: 1. Right leg worsening wound infection. ?Her prior cultures have shown ?polymicrobial sanchez including Pseudomonas, ampicillin susceptible ?Enterococcus, Proteus, and MSSA. ?MRI neg for osteomyelitis. ? 2. Right lower extremity cellulitis, likely due to #1. ? 3. Sepsis, present on admission, likely due to #1 and 2. ? 4. Leukocytosis, which has improved, likely due to #1 and 2. ? 5. Peripheral arterial disease. 6. Rheumatoid arthritis. 7. Noncompliance. 8. Coronary artery disease. 9. Hypothyroidism. 10.Chronic obstructive pulmonary disease. 11.Suspicion of left foot posterior and dorsal calcaneal fracture on her x-rays done at [facility]. ? PLAN: Keep zosyn Follow cx data Local wound care B Chronic atrial fibrillation (HCC) 10/08/2016 - Present Current Assessment AND Plan Assessment: No active CHF will continue rate control and anticoagulation PLAN: Continue current therapy C Anticoagulation goal of INR 2 to 3 04/23/2018 - Present Current Assessment AND Plan Recent Labs 04/23/18 0426 04/22/18 0527 04/21/18 0424 INR 2.6* 2.2* 2.0* Assessment: INR is therapeutic PLAN: Monitor daily INR M Class 2 obesity in adult 04/23/2018 - Present Current Assessment AND Plan Assessment: Status post gastric bypass PLAN: Dietary recommendations and outpatient follow-up Medication and Non-Pharmacologic VTE Prophylaxis/Anticoagulants Anticoagulant AND Antiplatelet Medications Start Dose Route Frequency Ordered Stop 04/20/182099 warfarin 3 mg tab(s) (COUMADIN) 3 mg ORAL DAILY 04/20/182048 -- 04/20/182099 aspirin, enteric coated 81 mg tab(s) (ASPIRIN, ENTERIC COATED) 81 mg ORAL DAILY 04/20/182048 -- 04/20/182099 vte current anticoag therapy (fl,oh) 04/20/182044 vte non-pharmacologic prophylaxis - none indicated (fl,oh) VTE Prophylaxis: VTE prophylaxis appropriate Plan of care discussed with: Patient - RN not available SIGNATURE: Khai Edgar MD PATIENT NAME: Rosa Beltran DATE: April 23, 2018 TIME: 2:38 PM PAGER/CONTACT #: CONSULT PROG Observed: 04/23/2018 Status: COMPLETED Source: [facility] 8:45 AM [facility] OTHER CAMPUS REPOSITORY O ID: [id number] Author: Ty Martinez Service: Podiatry Author Type: Resident Type: Consult Progress Note Filed: 04/23/2018 8:47 AM Note Text: CONSULT PROGRESS NOTE SERVICE DATE: 04/23/2018 SERVICE TIME: 8:45 AM CONSULTING SERVICE: Podiatry Subjective INTERVAL HPI: Patient seen and examined at bedside. Current hospital medications: levothyroxine 100 mcg tab(s) (SYNTHROID) 100 mcg ORAL DAILY (6 AM) potassium chloride 40 mEq in lactated Ringers 1,000 mL INTRAVENOUS CONTINUOUS acetaminophen 650 mg tab(s) (TYLENOL) 650 mg ORAL q 6 H PRN piperacillin-tazobactam 3.375 g in dextrose (iso-osmotic) 50 mL (ZOSYN) 3.375 g INTRAVENOUS q 6 H warfarin 3 mg tab(s) (COUMADIN) 3 mg ORAL DAILY gabapentin 300 mg cap(s) (NEURONTIN) 300 mg ORAL BID lisinopril 2.5 mg tab(s) (ZESTRIL, PRINIVIL) 2.5 mg ORAL DAILY metoprolol tartrate (short acting) 12.5 mg tab(s) (LOPRESSOR) 12.5 mg ORAL BID docusate sodium 100 mg cap(s) (COLACE) 100 mg ORAL DAILY PRN therapeutic multivitamin with iron (THERAGRAN-M) 1 tablet ORAL DAILY sodium hypochlorite 0.125 % (DAKIN'S QUARTER STRENGTH) TOPICAL DAILY aspirin, enteric coated 81 mg tab(s) (ASPIRIN, ENTERIC COATED) 81 mg ORAL DAILY 0.9% NaCl 3-5 mL 3-5 mL INTRAVENOUS q 12 H ondansetron orally disintegrating 4 mg tab(s) (ZOFRAN ODT) 4 mg ORAL q 6 H PRN ondansetron (PF) 4 mg injection (ZOFRAN) 4 mg INTRAVENOUS q [address] 20 mg tab(s) (PROTONIX) 20 mg ORAL DAILY (6 AM) Objective PHYSICAL EXAM: Physical Exam Performed: Vasc: DP/PT +1/4 Neuro: Intact epicritic sensation Derm: Dressing is CDI? Musc: m/s +4/5 BP 115/82 Pulse 67 Temp (Src) 97.3 (Oral) Resp 16 Ht 5' 4 (1.63m) Wt 212 lb 15.4 oz (96.6kg) SpO2 94% BMI 36.54 kg/(m2). DATA: Diagnostic tests reviewed for today's visit: CBC, Coags, BMP, Mg, Phos Recent Labs 04/23/18 0426 04/22/18 0527 04/21/18 0424 WBC 7.28 9.32 14.27* HB 10.6* 10.7* 10.8* HCT 34.1* 35.1* 34.8* PLT 217 205 200 INR 2.6* 2.2* 2.0* NA 134* 136 135* K 3.8 3.6* 3.6* CHLOR 93* 96* 98 CO2 32* 30 27 BUN 32* 33* 24* CREAT 1.18* 1.17* 1.02* GLUC 91 89 87 CA 8.6 8.4* 8.4* Most recent labs and imaging results. Impression/Recommendations Active Problems: Venous stasis ulceration R LE, cellulitis, chronic ulceration, R LE pain Leukocytosis Chronic A fib Hypothyroidism CAD COPD HTN HLD BEBA RA ? Pt Seen and examined bedside, cellulitis, drainage, needs cleaned daily with wound care Cont wound care while in house Wound care ordered, wash with dakins, xeroform, 4x4s, abds, kerlix, ANKIT with mild compression Apply heel protectors to offload MRI reviewed No OM or abscess No podiatry surgical plans at this time Cont abx per ID recs ? Patient actually looks much better just with proper care I am concerned about the wound care she is getting whereve she was previous sto this admit She needs better wound care and needs wound compressed needs wasehed daily to BID with dakins Cont xeroform No plans for ID in OR right now cont local wound care and debridement ? SIGNATURE: Ty Martinez DPM PATIENT NAME: Rosa Beltran DATE: April 23, 2018 TIME: 8:45 AM PAGER: CBC Collected: 04/23/2018 Status: F Source: [facility] 4:26 AM [facility] OTHER CAMPUS REPOSITORY TYPE CODE TESTS RESULT OUT OF REFERENCE UNITS RANGE LAB WBC 3.70-11.00 k/uL WBC 7.28 LAB RBC 3.90-5.20 m/uL Low RBC 3.80 LAB HGB 11.5-15.5 g/dL Low Hemoglobin 10.6 LAB HCT 36.0-46.0 % Low Hematocrit 34.1 LAB MCV 80.0-100.0 fL MCV 89.7 LAB MCH 26.0-34.0 pG MCH 27.9 LAB MCHC 30.5-36.0 g/dL MCHC 31.1 LAB RDWCV 11.5-15.0 % RDW-CV High 16.6 LAB PLTCT 150-400 k/uL Platelet Count 217 LAB MPV 9.0-12.7 fL MPV 10.8 Performed By: #### CBC, CMP #### [facility] [address] [place] [address] COMP METABOLIC PANEL Collected: 04/23/2018 Status: F Source: [facility] 4:26 AM [facility] OTHER [place] REPOSITORY TYPE CODE TESTS RESULT OUT OF REFERENCE UNITS RANGE LAB TP 6.3-8.0 g/dL Protein, Total 7.1 LAB ALB 3.9-4.9 g/dL Low Albumin 2.7 LAB CA 8.5-10.2 mg/dL Calcium, Total 8.6 LAB TBIL 0.2-1.3 mg/dL Bilirubin, Total 0.4 LAB ALKP 32-117 U/L Alkaline Phosphatase 61 LAB AST 13-35 U/L AST 24 LAB GLU 74-99 mg/dL Glucose 91 Result Comment: The [place] [employer] (ADA) provides guidance for cutoff values for fasting glucose and random glucose. The ADA defines fasting as no caloric intake for at least 8 hours. Fas ting plasma glucose results between 100 to 125 mg/dL indicate increased risk for diabetes (prediabetes). Fasting plasma glucose results greater than or equal to 126 mg/dL meet the criteria for diagnosis of diabetes. In the absence of unequivocal hyperglycemia, results should be confirmed by repeat testing. In a patient with classic symptoms of hyperglycemia or hyperglycemic crisis, random plasma glucose results greater than or equal to 200 mg/dL meet the criteria for diagnosis of diabetes. Reference: Standards of Medical Care in Diabetes 2016, [place] [employer]. Diabetes Care. 2016.39(Suppl 1). LAB BUN 7-21 mg/dL BUN High 32 LAB CRET 0.58-0.96 mg/dL Creatinine High 1.18 LAB NA 136-144 mmol/L Low Sodium 134 LAB K 3.7-5.1 mmol/L Potassium 3.8 LAB CL 97-105 mmol/L Low Chloride 93 LAB CO2 22-30 mmol/L CO2 High 32 LAB AGAP 9-18 mmol/L Anion Gap 9 LAB ALT 7-38 U/L ALT 7 LAB GFRAA eGFR- Amer. 53 LAB GFRNAA . eGFR-All Other Races 44 Result Comment: eGFR (Estimated GFR) Units of measure: mL/min/1.73 meters squared eGFR is derived from the reexpressed MDRD Study equation using the following parameters: serum creatinine, age, gender and race. The creatinine assay has been calibrated to be traceable to IDMS. An eGFR <60 mL/min/1.73m2 for >3 months is consistent with chronic kidney disease. Refer to KDOQI guidelines for clinical interpretation. In patients with unstable renal function, e.g. those with acute kidney injury, the eGFR may not accurately reflect actual GFR. Performed By: #### CBC, CMP #### [facility] [address] [place] [address] PROTIME Collected: 04/23/2018 Status: F Source: VICTOR 4:26 AM [facility] REPOSITORY TYPE CODE TESTS RESULT OUT OF RANGE REFERENCE UNITS LAB PSEC 9.7-13.0 sec High PT Sec 26.1 LAB INR 0.9-1.3 High PT INR 2.6 Result Comment: Vitamin K Antagonist (VKA) Therapeutic Range: INR 2 to 3 (Target INR of 2.5) Note: For patients treated with VKA drugs, such as warfarin, the [place] [employer] 2012 Guideline recommends a therapeutic INR range of 2 to 3 (target INR of 2.5). This recommendation includes high-risk patients with antiphospholipid syndrome with previous arterial or venous thromboembolism, current-generation mechanical or bioprosthetic aortic heart valve replacement. Note: Patients with mechanical aortic valve replacement and additional risk factors for thromboembolic events (atrial fibrillation, previous thromboembolism, LV dysfunction, hypercoagulable conditions) or an older generation mechanical AVR (i.e., ball in-Cage) or any mechanical MVR should have a INR therapeutic range of 2.5 to 3.5 (target INR of 3). Shweta GH, et al. Chest 2012, 141:7S-47S Genevieve RA, et al. [facility] 2017, 70: 252-289 Performed By: #### PT #### [facility] [address] [place] [address] NURSING PROG Observed: 04/22/2018 Status: COMPLETED Source: VICTOR 9:10 PM [facility] REPOSITORY HNO ID: [id number] Author: Timothy (Rn) ELENA Esposito Service: Nursing Author Type: Registered Nurse Type: Nursing Progress Note Filed: 04/22/2018 10:50 PM Note Text: Nursing Progress Note Patient Name: Rosa Beltran Patient Location: [facility]-0217/[id number] Daily Note: 0 LIP paged r/t medication order clarification: Lopressor. 2249 LIP paged r/t need of O2 order and pain med parameter clarification. This note was completed by: Timothy Esposito RN CONSULT PROG Observed: 04/22/2018 Status: COMPLETED Source: VICTOR 6:54 PM [facility] REPOSITORY O ID: [id number] Author: Heather Lynn Service: Infectious Disease Author Type: Physician Type: Consult Progress Note Filed: 04/22/2018 6:57 PM Note Text: INFECTIOUS DISEASE PROGRESS NOTE Patient Name: Rosa Beltran Date: 04/22/2018 ASSESSMENT: 1. Right leg worsening wound infection. Her prior cultures have shown polymicrobial sanchez including Pseudomonas, ampicillin susceptible Enterococcus, Proteus, and MSSA. MRI neg for osteomyelitis. 2. Right lower extremity cellulitis, likely due to #1. 3. Sepsis, present on admission, likely due to #1 and 2. 4. Leukocytosis, which has improved, likely due to #1 and 2. 5. Peripheral arterial disease. 6. Rheumatoid arthritis. 7. Noncompliance. 8. Coronary artery disease. 9. Hypothyroidism. 10.Chronic obstructive pulmonary disease. 11.Suspicion of left foot posterior and dorsal calcaneal fracture on her x-rays done at [facility]. PLAN: Keep zosyn Follow cx data Will d/w podiatry Wound care INTERVAL HISTORY: ROS done with pt/RN and negative unless stated. No f/c/n/v/d. MEDICATIONS: reviewed. Current hospital medications: levothyroxine 100 mcg tab(s) (SYNTHROID) 100 mcg ORAL DAILY (6 AM) potassium chloride 40 mEq in lactated Ringers 1,000 mL INTRAVENOUS CONTINUOUS piperacillin-tazobactam 3.375 g in dextrose (iso-osmotic) 50 mL (ZOSYN) 3.375 g INTRAVENOUS q 6 H warfarin 3 mg tab(s) (COUMADIN) 3 mg ORAL DAILY acetaminophen 650 mg tab(s) (TYLENOL) 650 mg ORAL q 6 H PRN gabapentin 300 mg cap(s) (NEURONTIN) 300 mg ORAL BID lisinopril 2.5 mg tab(s) (ZESTRIL, PRINIVIL) 2.5 mg ORAL DAILY metoprolol tartrate (short acting) 12.5 mg tab(s) (LOPRESSOR) 12.5 mg ORAL BID docusate sodium 100 mg cap(s) (COLACE) 100 mg ORAL DAILY PRN therapeutic multivitamin with iron (THERAGRAN-M) 1 tablet ORAL DAILY sodium hypochlorite 0.125 % (DAKIN'S QUARTER STRENGTH) TOPICAL DAILY aspirin, enteric coated 81 mg tab(s) (ASPIRIN, ENTERIC COATED) 81 mg ORAL DAILY 0.9% NaCl 3-5 mL 3-5 mL INTRAVENOUS q 12 H ondansetron orally disintegrating 4 mg tab(s) (ZOFRAN ODT) 4 mg ORAL q 6 H PRN ondansetron (PF) 4 mg injection (ZOFRAN) 4 mg INTRAVENOUS q [address] 20 mg tab(s) (PROTONIX) 20 mg ORAL DAILY (6 AM) PHYSICAL EXAM: Vital signs: BP 112/68 Pulse 65 Temp 36.7 ?C (98.1 ?F) (Oral) Resp 18 Ht 162.6 cm (5' 4) Wt 96.6 kg (212 lb 15.4 oz) SpO2 100% BMI 36.56 kg/m? Temp (24hrs), Av.5 ?C (97.7 ?F), Min:36.3 ?C (97.3 ?F), Max:36.7 ?C (98.1 ?F) General: alert, oriented, NAD Lungs: bilaterally clear to auscultation Heart: regular rate and rhythm Abdomen: soft, non tender, non distended, BS+ Extremities: no swollen joints RLE edema, erythema, warmth better; dressing on wound Skin: no rash IV sites - wnl Lab data: reviewed Recent Labs 04/22/18 0527 04/21/18 0424 04/20/187 04/20/182111 WBC 9.32 14.27* -- -- HB 10.7* 10.8* -- -- PLT 205 200 -- -- INR 2.2* 2.0* -- 2.2* NA 136 135* -- -- K 3.6* 3.6* -- -- CO2 30 27 -- -- BUN 33* 24* -- -- CREAT 1.17* 1.02* -- -- AST 25 23 -- -- ALT 6* 7 -- -- TBILI 0.6 0.6 -- -- ALKPHOS 88 63 -- -- WSR -- -- -- 56* LACT -- -- 1.5 -- Microbiology data: reviewed Imaging data: reviewed Heather Lynn MD Pager: NURSING PROG Observed: 04/22/2018 Status: COMPLETED Source: VICTOR 2:35 PM [facility] REPOSITORY HNO ID: [id number] Author: Rocio ParksRn) ELENA Contreras Service: (none) Author Type: Registered Nurse Type: Nursing Progress Note Filed: 04/22/2018 2:37 PM Note Text: Nursing Progress Note Patient Name: Rosa Beltran Patient [facility]: [facility]0217/[id number] Daily Note: 1315: Podiatry resident, Ty Martinez, at bedside to perform dressing change. Patient encouraged to wear boots to offload heels but refuses despite continuing education. Patient agreeable to pillow, but will not allow heels to be floated. This note was completed by: Rocio Contreras RN PROGRESS Observed: 04/22/2018 Status: COMPLETED Source: VICTOR 1:46 PM [facility] REPOSITORY HNO ID: [id number] Author: Marvin Blanton Service: General Internal Medicine Author Type: Physician Type: Progress Notes Filed: 04/22/2018 1:48 PM Note Text: DEPARTMENT OF HOSPITAL MEDICINE PROGRESS NOTE Patient Name: Rosa Beltran SERVICE DATE AND TIME: April 22, 2018 1:47 PM Hospital Medicine/Primary Attending: Marvin Blanton MD NIGHT AND WEEKEND COVERAGE: Days: [phone], please page me or text for patient issues my pager cell # [phone]. Evening and Nights: [phone], please page [phone] ASSESSMENT AND PLAN Venous stasis ulcer of right lower leg with edema of right lower leg (HCC) ? ? She was admitted for same last month and seen by ID and podiatry and had wound debrided. She had outpatient visit with Dr. Dmepsey on 04/11/18 and wound was debrided at that time. Noticed drainage increased in the past few days. Restarted on ABx 2 days ago. Leukocytosis 18.3, low grade temp 100.0. XRAY L foot at OSH: Fx through posterior and dorsal calcaneous, soft tissue swelling over dorsoum of foot w/o underlying fx or osseous erosion. Plan: Continue Zosyn for now as per ID f/u with podiatry, ID, and wound care consults. Wound Cx. f/u ESR, CRP, lactate. ? - Chronic atrial fibrillation (HCC) ? ? On coumadin, rate controlled, INR therapeutic. Monitor on tele. ? SUBJECTIVE INTERVAL HPI: pt have significant pain in the new ulcers MEDICATIONS: Reviewed OBJECTIVE PHYSICAL EXAM: BP 127/75 Pulse 59 Temp (Src) 97.7 (Axillary) Resp 18 Ht 5' 4 (1.63m) Wt 212 lb 15.4 oz (96.6kg) SpO2 95% BMI 36.54 kg/(m2). GENERAL: Alert, no distress, cooperative HEAD/SINUSES: No significant findings NECK: Supple, No JVD distention, No carotid bruits, Carotid pulse normal contour, LUNGS: Lungs clear to auscultation, Good diaphragmatic excursion CARDIAC: Normal S1 and S2; no rubs, murmurs, or gallops ABDOMEN: Abdomen soft, non-tender, BS normal, No masses or organomegaly EXTREMITIES: Right lateral posterior calf ulceration 7.0x5.0x0.2cm 50% granular with 50% central proximal necrotic, fibrotic area, Skin is soft to the area, but does not probe, superifical, tenderness with palpation, moderate serosang drainage, no malodor, diffuse erythema/edema R LE. Right medial ulceration 4.0x3.0x0.5cm, 100%fibrotic, mild serosang, mild jennifer-wound erythema, edema. Musc: m/s +4/5 DATA: Diagnostic tests reviewed for today's visit: Lab Results Component Value Date/Time WBC 9.32 04/22/2018 05:27 AM HB 10.7 (L) 04/22/2018 05:27 AM HCT 35.1 (L) 04/22/2018 05:27 AM MCV 90.0 04/22/2018 05:27 AM PLT 205 04/22/2018 05:27 AM NA 136 04/22/2018 05:27 AM K 3.6 (L) 04/22/2018 05:27 AM BICARB 31.0 (H) 12/19/2017 04:30 PM BUN 33 (H) 04/22/2018 05:27 AM CREAT 1.17 (H) 04/22/2018 05:27 AM GLUC 89 04/22/2018 05:27 AM AST 25 04/22/2018 05:27 AM ALT 6 (L) 04/22/2018 05:27 AM ALB 2.7 (L) 04/22/2018 05:27 AM TSH 4.590 10/02/2017 05:05 AM INR 2.2 (H) 04/22/2018 05:27 AM VTE Prophylaxis: Patient is already on Heparin prophylaxis dose Disposition: tbd Plan of care discussed with: Patient SIGNATURE: Marvin Blanton MD Pager DATE AND TIME: April 22, 2018 1:47 PM CONSULT PROG Observed: 04/22/2018 Status: COMPLETED Source: VICTOR 1:17 PM [facility] REPOSITORY HNO ID: [id number] Author: Chintan Dempsey DPM Service: Podiatry Author Type: Physician Type: Consult Progress Note Filed: 04/23/2018 7:31 AM Note Text: CONSULT PROGRESS NOTE SERVICE DATE: 04/22/2018 SERVICE TIME: 1:17PM CONSULTING SERVICE: Podiatry Subjective INTERVAL HPI: Patient seen and examined at bedside.doing better No new issues Current hospital medications: levothyroxine 100 mcg tab(s) (SYNTHROID) 100 mcg ORAL DAILY (6 AM) potassium chloride 40 mEq in lactated Ringers 1,000 mL INTRAVENOUS CONTINUOUS piperacillin-tazobactam 3.375 g in dextrose (iso-osmotic) 50 mL (ZOSYN) 3.375 g INTRAVENOUS q 6 H iv contrast (radiology procedure) INTRAVENOUS DIRECTED PRN warfarin 3 mg tab(s) (COUMADIN) 3 mg ORAL DAILY acetaminophen 650 mg tab(s) (TYLENOL) 650 mg ORAL q 6 H PRN gabapentin 300 mg cap(s) (NEURONTIN) 300 mg ORAL BID lisinopril 2.5 mg tab(s) (ZESTRIL, PRINIVIL) 2.5 mg ORAL DAILY metoprolol tartrate (short acting) 12.5 mg tab(s) (LOPRESSOR) 12.5 mg ORAL BID docusate sodium 100 mg cap(s) (COLACE) 100 mg ORAL DAILY PRN therapeutic multivitamin with iron (THERAGRAN-M) 1 tablet ORAL DAILY sodium hypochlorite 0.125 % (DAKIN'S QUARTER STRENGTH) TOPICAL DAILY aspirin, enteric coated 81 mg tab(s) (ASPIRIN, ENTERIC COATED) 81 mg ORAL DAILY 0.9% NaCl 3-5 mL 3-5 mL INTRAVENOUS q 12 H ondansetron orally disintegrating 4 mg tab(s) (ZOFRAN ODT) 4 mg ORAL q 6 H PRN ondansetron (PF) 4 mg injection (ZOFRAN) 4 mg INTRAVENOUS q [address] 20 mg tab(s) (PROTONIX) 20 mg ORAL DAILY (6 AM) Objective PHYSICAL EXAM: Physical Exam Performed: Vasc: DP/PT +1/4 Neuro: Intact epicritic sensation Derm: Right lateral posterior calf ulceration 7.0x5.0x0.2cm 50% granular with 50% central proximal necrotic, fibrotic area, Skin is soft to the area, but does not probe, superifical, tenderness with palpation, mild serosang drainage, no malodor, diffuse erythema/edema R LE. Right medial ulceration 4.0x3.0x0.5cm, 100%fibrotic, mild serosang, mild jennifer-wound erythema, edema decreased. Musc: m/s +4/5 BP 117/67 Pulse 72 Temp (Src) 97.3 (Oral) Resp 18 Ht 5' 4 (1.63m) Wt 212 lb 15.4 oz (96.6kg) SpO2 96% BMI 36.54 kg/(m2). DATA: Diagnostic tests reviewed for today's visit: CBC, Coags, BMP, Mg, Phos Recent Labs 04/22/18 0527 04/21/18 0424 04/20/18 2112 WBC 9.32 14.27* -- HB 10.7* 10.8* -- HCT 35.1* 34.8* -- PLT 205 200 -- INR 2.2* 2.0* 2.2* NA 136 135* -- K 3.6* 3.6* -- CHLOR 96* 98 -- CO2 30 27 -- BUN 33* 24* -- CREAT 1.17* 1.02* -- GLUC 89 87 -- CA 8.4* 8.4* -- Most recent labs and imaging results. Impression/Recommendations Active Problems: Venous stasis ulceration R LE, cellulitis, chronic ulceration, R LE pain Leukocytosis Chronic A fib Hypothyroidism CAD COPD HTN HLD BEBA RA ? Pt Seen and examined bedside, cellulitis, drainage, needs cleaned daily with wound care Cont wound care while in house Wound care ordered, wash with dakins, xeroform, 4x4s, abds, kerlix, ANKIT with mild compression Apply heel protectors to offload MRI reviewed No OM or abscess No podiatry surgical plans at this time Cont abx per ID recs Would cultures obtained bedside today, will follow Patient actually looks much better just with proper care I am concerned about the wound care she is getting whereve she was previous sto this admit She needs better wound care and needs wound compressed needs wasehed daily to BID with dakins Cont xeroform No plans for ID in OR right now cont local wound care and debridement Chintan Dempsey DPM 7:31 AM April 23, 2018 SIGNATURE: Ty Martinez DPM PATIENT NAME: Rosa Beltran DATE: April 22, 2018 TIME: 1:17 PM PAGER: CBC Collected: 04/22/2018 Status: F Source: VICTOR 5:27 AM [facility] REPOSITORY TYPE CODE TESTS RESULT OUT OF REFERENCE UNITS RANGE LAB WBC 3.70-11.00 k/uL WBC 9.32 LAB RBC 3.90-5.20 m/uL RBC 3.90 LAB HGB 11.5-15.5 g/dL Low Hemoglobin 10.7 LAB HCT 36.0-46.0 % Low Hematocrit 35.1 LAB MCV 80.0-100.0 fL MCV 90.0 LAB MCH 26.0-34.0 pG MCH 27.4 LAB MCHC 30.5-36.0 g/dL MCHC 30.5 LAB RDWCV 11.5-15.0 % RDW-CV High 16.9 LAB PLTCT 150-400 k/uL Platelet Count 205 LAB MPV 9.0-12.7 fL MPV 11.0 Performed By: #### CBC, CMP #### [facility] [address] [place] [address] COMP METABOLIC PANEL Collected: 04/22/2018 Status: F Source: VICTOR 5:27 AM [facility] REPOSITORY TYPE CODE TESTS RESULT OUT OF REFERENCE UNITS RANGE LAB TP 6.3-8.0 g/dL Protein, Total 7.1 LAB ALB 3.9-4.9 g/dL Low Albumin 2.7 LAB CA 8.5-10.2 mg/dL Low Calcium, Total 8.4 LAB TBIL 0.2-1.3 mg/dL Bilirubin, Total 0.6 LAB ALKP 32-117 U/L Alkaline Phosphatase 88 LAB AST 13-35 U/L AST 25 LAB GLU 74-99 mg/dL Glucose 89 Result Comment: The [place] [employer] (ADA) provides guidance for cutoff values for fasting glucose and random glucose. The ADA defines fasting as no caloric intake for at least 8 hours. Fas ting plasma glucose results between 100 to 125 mg/dL indicate increased risk for diabetes (prediabetes). Fasting plasma glucose results greater than or equal to 126 mg/dL meet the criteria for diagnosis of diabetes. In the absence of unequivocal hyperglycemia, results should be confirmed by repeat testing. In a patient with classic symptoms of hyperglycemia or hyperglycemic crisis, random plasma glucose results greater than or equal to 200 mg/dL meet the criteria for diagnosis of diabetes. Reference: Standards of Medical Care in Diabetes 2016, [place] [employer]. Diabetes Care. 2016.39(Suppl 1). LAB BUN 7-21 mg/dL BUN High 33 LAB CRET 0.58-0.96 mg/dL Creatinine High 1.17 LAB NA 136-144 mmol/L Sodium 136 LAB K 3.7-5.1 mmol/L Low Potassium 3.6 LAB CL 97-105 mmol/L Low Chloride 96 LAB CO2 22-30 mmol/L CO2 30 LAB AGAP 9-18 mmol/L Anion Gap 10 LAB ALT 7-38 U/L Low ALT 6 LAB GFRAA eGFR- Amer. 54 LAB GFRNAA . eGFR-All Other Races 44 Result Comment: eGFR (Estimated GFR) Units of measure: mL/min/1.73 meters squared eGFR is derived from the reexpressed MDRD Study equation using the following parameters: serum creatinine, age, gender and race. The creatinine assay has been calibrated to be traceable to IDMS. An eGFR <60 mL/min/1.73m2 for >3 months is consistent with chronic kidney disease. Refer to KDOQI guidelines for clinical interpretation. In patients with unstable renal function, e.g. those with acute kidney injury, the eGFR may not accurately reflect actual GFR. Performed By: #### CBC, CMP #### [facility] [address] [place] [address] PROTIME Collected: 04/22/2018 Status: F Source: VICTOR 5:27 AM [facility] REPOSITORY TYPE CODE TESTS RESULT OUT OF RANGE REFERENCE UNITS LAB PSEC 9.7-13.0 sec High PT Sec 22.0 LAB INR 0.9-1.3 High PT INR 2.2 Result Comment: Vitamin K Antagonist (VKA) Therapeutic Range: INR 2 to 3 (Target INR of 2.5) Note: For patients treated with VKA drugs, such as warfarin, the [place] [employer] 2012 Guideline recommends a therapeutic INR range of 2 to 3 (target INR of 2.5). This recommendation includes high-risk patients with antiphospholipid syndrome with previous arterial or venous thromboembolism, current-generation mechanical or bioprosthetic aortic heart valve replacement. Note: Patients with mechanical aortic valve replacement and additional risk factors for thromboembolic events (atrial fibrillation, previous thromboembolism, LV dysfunction, hypercoagulable conditions) or an older generation mechanical AVR (i.e., ball in-Cage) or any mechanical MVR should have a INR therapeutic range of 2.5 to 3.5 (target INR of 3). Shweta GH, et al. Chest 2012, 141:7S-47S Genevieve RA, et al. [facility] 2017, 70: 252-289 Performed By: #### PT #### [facility] [address] [place] [address] MRI LOWER LEG WO/W Observed: 04/21/2018 Status: F Source: VICTOR IVCON RT 4:50 PM [facility] REPOSITORY * * *Final Report* * * DATE OF EXAM: Apr 21 2018 4:50PM [facility] 0227 - MRI LOWER LEG WO/W IVCON RT / PROCEDURE REASON: Osteomyelitis suspected, tib/fib, initial exam * * * * Physician Interpretation * * * * PROCEDURE: MRI LOWER LEG WO/W IVCON RT INDICATION: Osteomyelitis suspected, tib/fib, initial exam TECHNIQUE: Multi-echo, multiplanar images of the right lower leg both prior to and after intravenous contrast administration.. Contrast information: Contrast1: Dotarem Contrast Dose1: 19 ContrastAdminRoute1: IV COMPARISON: 03/20/2018 FINDINGS: Again seen is significant susceptibility artifact from a knee arthroplasty and plate and screw fixation in the distal fibula. No definite marrow or cortical signal abnormality is seen to suggest osteomyelitis. However, evaluation in the proximal tibia and distal fibula cannot be accurately made due to susceptibility artifact. Remote healed distal tibial fracture is evident. There is diffuse muscle atrophy with fatty infiltration. There is subcutaneous edema/cellulitis without focal fluid collection to suggest abscess. No focal abnormal area of enhancement is seen. IMPRESSION: No evidence for osteomyelitis given the limitations discussed. Three-phase bone scan, in this instance would be a better study to evaluate for osteomyelitis. Stereotype Finisher: DWIGHT Transcribe Date/Time: Apr 21 2018 5:12P Dictated by : BENNIE VELASQUEZ MD This examination was interpreted and the report reviewed and electronically signed by: BENNIE VELASQUEZ MD on Apr 21 2018 5:16PM EST [id number] NURSING PROG Observed: 04/21/2018 Status: COMPLETED Source: VICTOR 2:43 PM [facility] OTHER CAMPUS REPOSITORY HNO ID: [id number] Author: Dorene (Rn) ELENA Billy Service: Nursing Author Type: Registered Nurse Type: Nursing Progress Note Filed: 04/21/2018 5:25 PM Note Text: Nursing Progress Note Patient Name: Rosa Beltran Patient Location: [place] [address]/[id number] Daily Note :1000 podiatry at bedside wound culture obtained and dressings changed bilateral legs at this time. 1430 to mri via bed with transport 1705 returns from mri via bed with o2., telemetry reapplied This note was completed by: Dorene Billy RN XR TIBIA FIBULA 2V Observed: 04/21/2018 Status: F Source: VI[facility] AP/LAT RT 1:50 PM [facility] OTHER [facility]AMP[facility] REPOSITORY * * *Final Report* * * DATE OF EXAM: Apr 21 2018 1:50PM MDX 5266 - XR TIBIA FIBULA 2V AP/LAT RT / PROCEDURE REASON: Lower leg erythema, swelling, cellulitis suspected * * * * Physician Interpretation * * * * RIGHT tib-fib HISTORY: 82 years old Clinical information: Lower leg erythema, swelling, cellulitis suspected CELLULITIS CELLULITIS PER PT, NO RECENT TRAUMA TECHNIQUE: Images: XR TIBIA FIBULA 2V AP/LAT RT Comparison: 01/13/2018. RESULT: Findings: No change in alignment of the visualized portions of the knee prosthesis with a lateral plate and multiple screws in the distal fibula. Healed fracture of the distal tibia noted. Marked bony demineralization noted. No acute fractures or dislocations are seen. Large amount soft tissue swelling over the lower leg noted. There is to be a soft tissue ulceration and/or indentation over the medial aspect of the distal tibia. This is similar to the previous study IMPRESSION: Large amount soft tissue swelling over the lower leg.. Soft tissue loss over the medial aspect of the distal tibia as discussed similar to the previous study Stereotype Finisher: DWIGHT Transcribe Date/Time: Apr 21 2018 4:30P Dictated by : HAO YORK DO This examination was interpreted and the report reviewed and electronically signed by: HAO YORK DO on Apr 21 2018 4:32PM EST [id number] PROGRESS Observed: 04/21/2018 Status: COMPLETED Source: [facility]CTOR 1:42 PM [facility] REPOSITORY HNO ID: [id number] Author: Alisa Beltre (Pharmacist) Service: Pharmacy Author Type: Pharmacist Type: Progress Notes Filed: 04/21/2018 1:42 PM Note Text: PHARMACY VANCOMYCIN DOSING NOTE Patient Name: Rosa Beltran Admission Date: 04/20/2018 Date of Consult: 04/21/2018 Time of Consult: 1:42 PM RECOMMENDATIONS/PLAN: 1. The primary service has discontinued vancomycin therapy. Pharmacy vancomycin dosing service will sign off. Thank you for allowing us to participate in this patient's care. Please contact pharmacy if questions. Herrera Rosario PLAN OF CARE Observed: 04/21/2018 Status: COMPLETED Source: [facility] 1:34 PM [facility] OTHER [place] REPOSITORY HNO ID: [id number] Author: Heather Lynn Service: Infectious Disease Author Type: Physician Type: Plan of Care Filed: 04/21/2018 1:34 PM Note Text: Consult Dictated. Please call with questions. Will follow with you. Thank you. Heather Lynn MD Pager: [phone] Date: 04/21/2018 Time: 1:34 PM PROGRESS Observed: 04/21/2018 Status: COMPLETED Source: [facility] 1:16 PM [facility] OTHER [facility]AMP[facility] REPOSITORY HNO ID: [id number] Author: Marvin Stevenson) Franny Service: General Internal Medicine Author Type: Physician Type: Progress Notes Filed: 04/21/2018 1:18 PM Note Text: DEPARTMENT OF HOSPITAL MEDICINE PROGRESS NOTE Patient Name: Rosa Beltran SERVICE DATE AND TIME: April 21, 2018 1:16 PM Hospital Medicine/Primary Attending: Marvin Blanton MD NIGHT AND WEEKEND COVERAGE: Days: [phone], please page me or text for patient issues my pager cell # [phone]. Evening and Nights: [phone], please page [phone] ASSESSMENT AND PLAN Active Hospital Problems Diagnosis - Venous stasis ulcer of right lower leg with edema of right lower leg (HCC) She was admitted for same last month and seen by ID and podiatry and had wound debrided. She had outpatient visit with Dr. Dempsey on 04/11/18 and wound was debrided at that time. Noticed drainage increased in the past few days. Restarted on ABx 2 days ago. Leukocytosis 18.3, low grade temp 100.0. XRAY L foot at OSH: Fx through posterior and dorsal calcaneous, soft tissue swelling over dorsoum of foot w/o underlying fx or osseous erosion. Plan: Continue vanco, podiatry, ID, and wound care consults. Wound Cx. Check ESR, CRP, lactate. - Chronic atrial fibrillation (HCC) On coumadin, rate controlled, INR therapeutic. Monitor on tele. SUBJECTIVE INTERVAL HPI: pt have significant pain in the new ulcers MEDICATIONS: Reviewed OBJECTIVE PHYSICAL EXAM: BP 123/52 Pulse 65 Temp (Src) 98 (Oral) Resp 20 Ht 5' 4 (1.63m) Wt 212 lb 15.4 oz (96.6kg) SpO2 100% BMI 36.54 kg/(m2). GENERAL: Alert, no distress, cooperative HEAD/SINUSES: No significant findings NECK: Supple, No JVD distention, No carotid bruits, Carotid pulse normal contour, LUNGS: Lungs clear to auscultation, Good diaphragmatic excursion CARDIAC: Normal S1 and S2; no rubs, murmurs, or gallops ABDOMEN: Abdomen soft, non-tender, BS normal, No masses or organomegaly EXTREMITIES: Right lateral posterior calf ulceration 7.0x5.0x0.2cm 50% granular with 50% central proximal necrotic, fibrotic area, Skin is soft to the area, but does not probe, superifical, tenderness with palpation, moderate serosang drainage, no malodor, diffuse erythema/edema R LE. Right medial ulceration 4.0x3.0x0.5cm, 100%fibrotic, mild serosang, mild jennifer-wound erythema, edema. Musc: m/s +4/5 DATA: Diagnostic tests reviewed for today's visit: Lab Results Component Value Date/Time WBC 14.27 (H) 04/21/2018 04:24 AM HB 10.8 (L) 04/21/2018 04:24 AM HCT 34.8 (L) 04/21/2018 04:24 AM MCV 90.2 04/21/2018 04:24 AM PLT 200 04/21/2018 04:24 AM NA 135 (L) 04/21/2018 04:24 AM K 3.6 (L) 04/21/2018 04:24 AM BICARB 31.0 (H) 12/19/2017 04:30 PM BUN 24 (H) 04/21/2018 04:24 AM CREAT 1.02 (H) 04/21/2018 04:24 AM GLUC 87 04/21/2018 04:24 AM AST 23 04/21/2018 04:24 AM ALT 7 04/21/2018 04:24 AM ALB 2.8 (L) 04/21/2018 04:24 AM TSH 4.590 10/02/2017 05:05 AM INR 2.0 (H) 04/21/2018 04:24 AM VTE Prophylaxis: Patient is already on Heparin prophylaxis dose Disposition: tbd Plan of care discussed with: Patient SIGNATURE: Marvin Blanton MD Pager DATE AND TIME: April 21, 2018 1:16 PM ALLIED HEALTH Observed: 04/21/2018 Status: COMPLETED Source: [facility] 11:28 AM CLINIC OTHER CAMPUS REPOSITORY HNO ID: [id number] Author: Svetlana Gonzalez RN Service: Ostomy Author Type: Registered Nurse Type: Allied Health Filed: 04/21/2018 11:30 AM Note Text: Patient chart reviewed after consult wound care order received. Noted patient is followed by Dr Dempsey as outpatient and podiatry resident has evaluated and written wound care orders this AM. Will defer the consult for now and remain available if needed. Svetlana Gonzalez RN CWOCN CASE MGT INIT Observed: 04/21/2018 Status: COMPLETED Source: [facility] 11:04 AM CLINIC OTHER CAMPUS REPOSITORY HNO ID: [id number] Author: Linda Cabrera) Nima Service: Care Management Author Type: Tax Preparer Type: Care Mgt Initial Assessment Filed: 04/21/2018 11:16 AM Note Text: CARE MANAGEMENT: ASSESSMENT AND DISCHARGE PLAN SERVICE DATE: 04/21/2018 SERVICE TIME: 10:40 AM PRIMARY CARE PHYSICIAN: Mani Newman MD - confirmed with pt. Pt states she will follow up with Dr. Dempsey rather than Dr. Newman post d/c, will schedule with Dr. Dempsey on her own. ADMISSION STATUS: Inpatient Needs Prior to Discharge: Home Care Order;Other: See Comment;Wound Care (medical clearance) MEDICAL: Patient/Material Processor Stated Goals: To have reduction in symptoms To return home to life as it was To be cured/healed Health Insurance: MEDICARE A AND B [place] [facility] Issues Impacting Discharge Plan: Chronic wounds Last Admission Date: Previous admit date: 03/17/2018 Is this Within the Past 30 days? No Advance Directive: Current Advance Directive: Health Care Power of Integrity Director (pt states her son recently , she states her dtr in law is now her POA. Pt states paperwork is at home and declines to complete or update POA forms at this time) In Chart: No Web Software Engineer Assisted with AD Completion: No Health Literacy: 1. How often do you need to have someone help you when you read instructions, pamphlets, or other written material from your doctor or pharmacy? Never - 1 2. How confident are you filling out medical forms by yourself? Extremely - 1 If Patient scores > 3 on either question, the following interventions were put into place: Patient did not score > 3 FUNCTIONAL AND COGNITIVE/BEHAVIORAL PRIOR TO ADMISSION: Baseline Mental Status: Alert AND Oriented, Person, Place , Time and Situation Functional Status: Independent Does Patient Currently Receive Any Community Services or Home Care? Home Health Care Agency: [facility]; ; Active. Equipment Prior to Admission: Oxygen 3 liters per minute Walker Wound Care supplies Provider [employer] Has the Patient Been in a Half-Way Facility in the Past 30 days? No SOCIAL: Living Arrangement: Home Lives With: Alone Financial Resources: Retired Primary Contact: Extended Emergency Contact Information Primary Emergency Contact: Sheron Beltran Mobile Relation: Dtr in Law Supportive: Yes Other Important Patient Contacts: None Caregiver Assessment: Caregiver is ready, willing and able to meet the patient's needs as recommended by the inter-professional team? Yes Patient's transition needs and plan for meeting these needs: Pt states she plans to return to her own home with resumption of [facility] and support from her dtr in law Does the patient have an acute stroke diagnosis, or has the patient had a stroke during this admission? No Medication Adherence: I am convinced of the importance of my prescription medication: Agree completely - 0 I worry that my prescription medication will do more harm than good to me Disagree completely - 0 I feel financially burdened by my [id number] expenses for my prescription medication: Disagree completely - 0 Patient is categorized as low risk < 2 Are you interested in bedside delivery of your medications? No Food Concerns: In the Last Month, Have You had Trouble Getting Food? No trouble getting food During the Last Month, Have You Worried Whether Your Food Would Run Out Before You Had Enough Money to Buy More? No Is the Patient Psychosocially Complex? No ASSESSMENT AND PLAN: Medical Needs: 2 or more chronic diseases and Wound Care - active or potential Psychosocial Needs: None FREEDOM OF CHOICE EXPLAINED: Yes explained to pt Preference: resume HHC with [facility] POTENTIAL TRANSITION PLANS [facility] OT/PT Met with pt bedside, introduced self and role of case management. Pt states she plans to return to her own home, states she lives independently in an apartment but has intercom access for communication with her dtr in law who lives in the same building and is supportive. Pt states she has needed DME at home, states she is active with [facility] home care and would like to resume services at d/c. [facility] referral sent. Pt states her dtr in law will transport her at d/c. Anticipate complex d/c needs, case management to remain available for d/c planning and assist as needed. SIGNATURE: MERY Medina PATIENT NAME: Rosa Beltran DATE: April 21, 2018 TIME: 11:04 AM PAGER/CONTACT #: [phone] CONSULT Observed: 04/21/2018 Status: COMPLETED Source: [facility] 10:41 AM CLINIC OTHER CAMPUS REPOSITORY HNO ID: [id number] Author: Jessica Yeager Service: Podiatry Author Type: Resident Type: Consults Filed: 04/21/2018 11:06 AM Note Text: CONSULT: POD SURG SERVICE SERVICE DATE: 04/21/2018 SERVICE TIME: 1030 REASON FOR CONSULT: Right LE ulcerations PRIMARY CARE PHYSICIAN: Mani Newman MD Subjective Ms. Beltran is a 82 year old female who presents for R LE wounds with increasing redness, swelling, pain, drainage. Patient was sent from [facility] due to previous care at [facility]. Patient had OR debridement on last admission and required continued wound care. Patients states [facility] has been changing her dressings daily and pt was supposed to continue follow up with Dr. Dempsey in [facility] wound care center. Pt was started PO abx for two weeks, off for one week, and restarted two days ago. Pt admits to nausea, denies V/C/F/SOB. PAST MEDICAL HISTORY Diagnosis Date - Acquired hypothyroidism - Acute respiratory failure with hypoxia (HCC) 09/30/2017 - Atrial fibrillation (HCC) - CAD (coronary artery disease) Dr. Brenda Awan Hts, Promus element KIMMY LAD 11/20/2012, Stress test 04/2014 inferoapical reversible ischemia,small LVEF 48- 50%, LHC 12/2014 L main-normal, LAD widely patent, Cx diffuse mild luminal irregularities with 80%focal stenosis distal, RCA dominant with minimal luminal irregularities. 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 - Pure hypercholesterolemia - Rheumatoid arthritis ([facility]) 2007 - Sleep apnea - Stented coronary artery 12/29/2016 PAST SURGICAL HISTORY Procedure Laterality Date - CC CORONARY STENT 11/20/2012 KIMMY LAD - CC CORONARY STENT 12/20/2014 KIMMY, Cfx - SECTION HX - COLONOSCOPY 06/10/2017 [facility], Nonspecific cecal ulcer - GASTRIC BYPASS HX 1986 - HERNIA REPAIR HX 1987; 1989 - PAST SURGICAL HISTORY OF Right 09/2015 right tibia fracture ORIF - PAST SURGICAL HISTORY OF Right 01/20/2016 Removal of hardware, right tibia - TOTAL KNEE REPLACEMENT Right 2003 [facility] Gen. - TOTAL KNEE REPLACEMENT Left 2004 [facility] Gen. No family history on file. Social History Substance Use Topics - Smoking status: Passive Smoke Exposure - Never Smoker - Smokeless tobacco: Never Used Comment: smoked for 40 years - Alcohol use No Prescriptions Prior to Admission: ergocalciferol, vitamin D2, (VITAMIN D2 ORAL) Take by mouth. Disp: Rfl: 04/19/2018 at Unknown time spironolactone (ALDACTONE) 25 mg tablet Take 2 tablets by mouth twice daily. Disp: 60 tablet Rfl: 04/19/2018 at Unknown time metOLAzone (ZAROXOLYN) 2.5 mg tablet Take 2 tablets by mouth twice daily. Disp: Rfl: 04/19/2018 at Unknown time metoprolol tartrate, short acting, (LOPRESSOR) 25 mg tablet Take 0.5 tablets by mouth twice daily. Disp: 30 tablet Rfl: 04/19/2018 at Unknown time lisinopril (ZESTRIL) 2.5 mg tablet Take 1 tablet by mouth every evening. Disp: 30 tablet Rfl: 04/19/2018 at Unknown time omeprazole (PRILOSEC) 20 mg capsule Take 1 capsule by mouth once daily. Disp: 30 capsule Rfl: 04/19/2018 at Unknown time docusate sodium (COLACE) 100 mg capsule Take 1 capsule by mouth once daily as needed for Constipation. Disp: 30 capsule Rfl: 5 04/19/2018 at Unknown time furosemide (LASIX) 40 mg tablet Take 2 tablets by mouth twice daily. Disp: 120 tablet Rfl: 5 04/19/2018 at Unknown time sodium hypochlorite (DAKIN'S SOLUTION) 0.125 % soln Dakin's moistened gauze packing every other day to wound for bacterial control. Disp: 473 mL Rfl: 2 04/20/2018 at Unknown time warfarin (COUMADIN) 3 mg tablet Take 1 tablet by mouth daily as directed. Patient is taking 2mg Tuesday and and 3mg other days. (Patient taking differently: Take 3 mg by mouth once daily. ) Disp: Rfl: 04/19/2018 at Unknown time gabapentin (NEURONTIN) 300 mg capsule Take 1 capsule by mouth twice daily for 180 days. Disp: 180 capsule Rfl: 1 04/19/2018 at Unknown time ASCORBIC ACID (VITAMIN C ORAL) Take 1 tablet by mouth twice daily. Disp: Rfl: 04/19/2018 at Unknown time silver sulfADIAZINE (SILVADENE) 1 % cream Apply to leg wounds as directed. Disp: 50 g Rfl: 1 04/19/2018 at Unknown time acetaminophen (TYLENOL) 500 mg tablet Take 1,000 mg by mouth every 8 hours as needed. Disp: Rfl: 04/19/2018 at Unknown time aspirin, enteric coated (ASPIRIN, ENTERIC COATED) 81 mg EC tablet Take 81 mg by mouth every evening. Disp: Rfl: 04/19/2018 at Unknown time therapeutic multivitamin w/ iron (THERAGRAN-M) 9 mg iron-400 mcg tablet Take 1 tablet by mouth once daily. Disp: Rfl: 04/19/2018 at Unknown time levothyroxine (LEVOXYL) 100 mcg tablet Take 1 tablet by mouth once daily. Take on empty stomach. For Thyroid. Disp: 30 tablet Rfl: 11 04/19/2018 at Unknown time COMPOUNDED PRESCRIPTION Calcium Alginate 4x4 Dressing, change daily Dx: Blister left leg with infection S80.822A, L08.9; Lymphedema I89.0. Wound dimensions: 4 x 3 cm Disp: 14 Each Rfl: 0 04/20/2018 at Unknown time Zinc Sulfate 220 mg tab Take 1 tablet by mouth once daily for 14 days. Disp: 14 tablet Rfl: 0 Not Taking at Unknown time Current hospital medications: warfarin 3 mg tab(s) (COUMADIN) 3 mg ORAL DAILY acetaminophen 650 mg tab(s) (TYLENOL) 650 mg ORAL q 6 H PRN gabapentin 300 mg cap(s) (NEURONTIN) 300 mg ORAL BID lisinopril 2.5 mg tab(s) (ZESTRIL, PRINIVIL) 2.5 mg ORAL DAILY metoprolol tartrate (short acting) 12.5 mg tab(s) (LOPRESSOR) 12.5 mg ORAL BID docusate sodium 100 mg cap(s) (COLACE) 100 mg ORAL DAILY PRN furosemide 80 mg tab(s) (LASIX) 80 mg ORAL BID therapeutic multivitamin with iron (THERAGRAN-M) 1 tablet ORAL DAILY sodium hypochlorite 0.125 % (DAKIN'S QUARTER STRENGTH) TOPICAL DAILY aspirin, enteric coated 81 mg tab(s) (ASPIRIN, ENTERIC COATED) 81 mg ORAL DAILY spironolactone 50 mg tab(s) (ALDACTONE) 50 mg ORAL BID metOLAzone 5 mg tab(s) (ZAROXOLYN) 5 mg ORAL BID levothyroxine 100 mcg tab(s) (SYNTHROID) 100 mcg ORAL DAILY vancomycin 1.5 g in D5W 250 mL (VANCOCIN) 1.5 g INTRAVENOUS q 24 H 0.9% NaCl 3-5 mL 3-5 mL INTRAVENOUS q 12 H ondansetron orally disintegrating 4 mg tab(s) (ZOFRAN ODT) 4 mg ORAL q 6 H PRN ondansetron (PF) 4 mg injection (ZOFRAN) 4 mg INTRAVENOUS q [address] 20 mg tab(s) (PROTONIX) 20 mg ORAL DAILY (6 AM) vancomycin dosing and monitoring per pharmacy OTHER As Directed Allergies As of Date: 04/20/2018 (No Known Allergies) Fully Assessed 04/20/2018 COMPLETE REVIEW OF SYSTEMS: Neg except what's indicated above Objective PHYSICAL EXAM: Physical Exam Performed: GENERAL: alert, no distress, cooperative Vasc: DP/PT +1/4 Neuro: Intact epicritic sensation Derm: Right lateral posterior calf ulceration 7.0x5.0x0.2cm 50% granular with 50% central proximal necrotic, fibrotic area, Skin is soft to the area, but does not probe, superifical, tenderness with palpation, moderate serosang drainage, no malodor, diffuse erythema/edema R LE. Right medial ulceration 4.0x3.0x0.5cm, 100%fibrotic, mild serosang, mild jennifer-wound erythema, edema. Musc: m/s +4/5 BP 121/74 Pulse 76 Temp (Src) 98.8 (Oral) Resp 18 Ht 5' 4 (1.63m) Wt 212 lb 15.4 oz (96.6kg) SpO2 96% BMI 36.54 kg/(m2). DATA: Diagnostic tests reviewed for today's visit: Most recent labs and imaging results. CBC, Coags, BMP, Mg, Phos Recent Labs 04/21/18 0424 04/20/18 2112 WBC 14.27* -- HB 10.8* -- HCT 34.8* -- PLT 200 -- INR 2.0* 2.2* NA 135* -- K 3.6* -- CHLOR 98 -- CO2 27 -- BUN 24* -- CREAT 1.02* -- GLUC 87 -- CA 8.4* -- PVR in chart from 10/2017 MRI in chart from 03/20/2018- neg for OM Impression/Recommendations Venous stasis ulceration R LE, cellulitis, chronic ulceration, R LE pain Leukocytosis Chronic A fib Hypothyroidism CAD COPD HTN HLD BEBA RA Pt Seen and examined bedside, cellulitis, drainage, needs cleaned daily with wound care Cont wound care while in house Wound care ordered, wash with dakins, xeroform, 4x4s, abds, kerlix, ANKIT with mild compression Apply heel protectors to offload No podiatry surgical plans at this time RIght leg xray, consider more current MRI last was one month ago Cont abx per ID recs Would cultures obtained bedside today, will follow SIGNATURE: Jessica Yeager DPM PATIENT NAME: Rosa Beltran DATE: April 21, 2018 TIME: 10:42 AM PAGER: WOUND Observed: 04/21/2018 Status: F Source: [facility] CULTURE/STAIN 10:30 AM CLINIC OTHER CAMPUS REPOSITORY Sp. Request/Comment: - Eswab Smear Result - Moderate Gram negative bacilli --> ABNORMAL ALERT Rare Polymorphonuclear leukocytes Culture Result - Moderate Pseudomonas aeruginosa --> ABNORMAL ALERT Morphology 1 --> ABNORMAL ALERT Few --> ABNORMAL ALERT Pseudomonas aeruginosa --> ABNORMAL ALERT Morphology 2 --> ABNORMAL ALERT ORGANISM: Pseudomonas aeruginosa METHOD: Minimum inhibitory concentration(Vitek) Antibiotic Interp THEO Status Gentamicin SUSCEPTIBLE <=1 F Ciprofloxacin SUSCEPTIBLE <=0.25 F Cefepime SUSCEPTIBLE 2 F Piperacillin/Tazobac SUSCEPTIBLE 8 F Meropenem SUSCEPTIBLE <=0.25 F ORGANISM: Pseudomonas aeruginosa METHOD: Minimum inhibitory concentration (VIZION) Antibiotic Interp THEO Status Gentamicin SUSCEPTIBLE <=2 F Ciprofloxacin SUSCEPTIBLE <=0.5 F Cefepime RESISTANT 32 F Piperacillin/Tazobac RESISTANT >128 F Meropenem SUSCEPTIBLE <=0.5 F Performed By: #### WCUL #### [facility] [address] [place], [place] [address] PROGRESS Observed: 04/21/2018 Status: COMPLETED Source: [facility] 9:25 AM [facility] OTHER CAMPUS REPOSITORY O ID: [id number] Author: Taina Pride (Pharmacist) Service: Pharmacy Author Type: Pharmacist Type: Progress Notes Filed: 04/21/2018 9:29 AM Note Text: PHARMACY VANCOMYCIN DOSING NOTE Patient Name: Rosa Beltran Admission Date: 04/20/2018 Date of Consult: 04/21/2018 Time of Consult: 9:26 AM Indication: Skin/Soft tissue infection Goal Range: 10-20 mcg/mL RECOMMENDATIONS/PLAN: Pharmacy consulted for vancomycin dosing for Rosa Beltran, a 82 year old, female who is being treated with vancomycin 1. Patient is currently ordered Vancomycin 1.5 g IV q24h. Today is day 2 of therapy. 2. No vancomycin level has been drawn for this dosing regimen. 3. The present dose of vancomycin is the recommended dosage for this patient at this time. Continue therapy as prescribed. 4. The next vancomycin level will be ordered for 6-24 unless clinically indicated sooner. (Pharmacy will order) We will follow patient renal function, vancomycin levels and doses with you during the course of therapy. Additional recommendations will appear in follow up notes. If you have any questions, please contact inpatient pharmacy at [phone]. Age: [age] year old Allergies: ALLERGIES No Known Allergies Last 3 Encounter Wt Readings: Date: Wt: 04/20/2018 96.6 kg (212 lb 15.4 oz) 04/14/2018 96.2 kg (212 lb 1.6 oz) 03/17/2018 90.2 kg (198 lb 13.7 oz) Last 1 Encounter Ht Readings: Date: Ht: 04/20/2018 162.6 cm (5' 4) CrCl: 48.8 mL/min Temp (24hrs), Av.3 ?C (99.2 ?F), Min:36.7 ?C (98.1 ?F), Max:37.8 ?C (100 ?F) - Current Temp: 37.1 ?C (98.8 ?F) Labs BUN (mg/dL) Date Value 04/21/2018 24 (H) 04/14/2018 21 03/24/2018 27 (H) Creatinine (mg/dL) Date Value 04/21/2018 1.02 (H) 04/14/2018 0.89 03/24/2018 1.07 (H) WBC (k/uL) Date Value 04/21/2018 14.27 (H) 03/24/2018 4.73 03/23/2018 5.14 Vancomycin Levels: No results found for: DANISHA PRIDE, PHARMACIST CBC Collected: 04/21/2018 Status: F Source: [facility] 4:24 AM CLINIC OTHER CAMPUS REPOSITORY TYPE CODE TESTS RESULT OUT OF REFERENCE UNITS RANGE LAB WBC 3.70-11.00 k/uL WBC High 14.27 LAB RBC 3.90-5.20 m/uL Low RBC 3.86 LAB HGB 11.5-15.5 g/dL Low Hemoglobin 10.8 LAB HCT 36.0-46.0 % Low Hematocrit 34.8 LAB MCV 80.0-100.0 fL MCV 90.2 LAB MCH 26.0-34.0 pG MCH 28.0 LAB MCHC 30.5-36.0 g/dL MCHC 31.0 LAB RDWCV 11.5-15.0 % RDW-CV High 16.9 LAB PLTCT 150-400 k/uL Platelet Count 200 LAB MPV 9.0-12.7 fL MPV 10.9 Performed By: #### CBC, CMP #### [facility] [address] [place] [address] COMP METABOLIC PANEL Collected: 04/21/2018 Status: F Source: [facility] 4:24 AM CLINIC OTHER CAMPUS REPOSITORY TYPE CODE TESTS RESULT OUT OF REFERENCE UNITS RANGE LAB TP 6.3-8.0 g/dL Protein, Total 7.1 LAB ALB 3.9-4.9 g/dL Low Albumin 2.8 LAB CA 8.5-10.2 mg/dL Low Calcium, Total 8.4 LAB TBIL 0.2-1.3 mg/dL Bilirubin, Total 0.6 LAB ALKP 32-117 U/L Alkaline Phosphatase 63 LAB AST 13-35 U/L AST 23 LAB GLU 74-99 mg/dL Glucose 87 Result Comment: The [place] Diabetes Association (ADA) provides guidance for cutoff values for fasting glucose and random glucose. The ADA defines fasting as no caloric intake for at least 8 hours. Fas ting plasma glucose results between 100 to 125 mg/dL indicate increased risk for diabetes (prediabetes). Fasting plasma glucose results greater than or equal to 126 mg/dL meet the criteria for diagnosis of diabetes. In the absence of unequivocal hyperglycemia, results should be confirmed by repeat testing. In a patient with classic symptoms of hyperglycemia or hyperglycemic crisis, random plasma glucose results greater than or equal to 200 mg/dL meet the criteria for diagnosis of diabetes. Reference: Standards of Medical Care in Diabetes 2016, [place] Diabetes Association. Diabetes Care. 2016.39(Suppl 1). LAB BUN 7-21 mg/dL BUN High 24 LAB CRET 0.58-0.96 mg/dL Creatinine High 1.02 LAB NA 136-144 mmol/L Low Sodium 135 LAB K 3.7-5.1 mmol/L Low Potassium 3.6 LAB CL 97-105 mmol/L Chloride 98 LAB CO2 22-30 mmol/L CO2 27 LAB AGAP 9-18 mmol/L Anion Gap 10 LAB ALT 7-38 U/L ALT 7 LAB GFRAA eGFR- Amer. >60 LAB GFRNAA . eGFR-All Other Races 52 Result Comment: eGFR (Estimated GFR) Units of measure: mL/min/1.73 meters squared eGFR is derived from the reexpressed MDRD Study equation using the following parameters: serum creatinine, age, gender and race. The creatinine assay has been calibrated to be traceable to IDMS. An eGFR <60 mL/min/1.73m2 for >3 months is consistent with chronic kidney disease. Refer to KDOQI guidelines for clinical interpretation. In patients with unstable renal function, e.g. those with acute kidney injury, the eGFR may not accurately reflect actual GFR. Performed By: #### CBC, CMP #### [facility] [address] [facility] [phone] PROTIME Collected: 04/21/2018 Status: F Source: [facility] 4:24 AM [facility] REPOSITORY TYPE CODE TESTS RESULT OUT OF RANGE REFERENCE UNITS LAB PSEC 9.7-13.0 sec High PT Sec 19.9 LAB INR 0.9-1.3 High PT INR 2.0 Result Comment: Vitamin K Antagonist (VKA) Therapeutic Range: INR 2 to 3 (Target INR of 2.5) Note: For patients treated with VKA drugs, such as warfarin, the [place] [employer] 2012 Guideline recommends a therapeutic INR range of 2 to 3 (target INR of 2.5). This recommendation includes high-risk patients with antiphospholipid syndrome with previous arterial or venous thromboembolism, current-generation mechanical or bioprosthetic aortic heart valve replacement. Note: Patients with mechanical aortic valve replacement and additional risk factors for thromboembolic events (atrial fibrillation, previous thromboembolism, LV dysfunction, hypercoagulable conditions) or an older generation mechanical AVR (i.e., ball in-Cage) or any mechanical MVR should have a INR therapeutic range of 2.5 to 3.5 (target INR of 3). Shweta GH, et al. Chest 2012, 141:7S-47S Genevieve RA, et al. [facility] 2017, 70: 252-289 Performed By: #### PT #### [facility] [address] [place] [address] CONSULT Observed: 04/21/2018 Status: COMPLETED Source: [facility] 12:00 AM [facility] REPOSITORY HNO ID: [id number] Author: Heather Lynn Service: Infectious Disease Author Type: Physician Type: Consults Filed: 04/22/2018 3:37 PM Note Text: [facility]- Consultation ROSA BELTRAN : 1935 AGE: 82 SEX: F ACCTNUM: [id number] HOSP [facility]: [facility] LOCATION: [facility] [place] ATTENDING PHYSICIAN: MARVIN BLANTON DATE OF CONSULTATION: 04/21/2018 REFERRING PHYSICIAN: Dr. Blanton. REASON FOR CONSULTATION: Right leg infection. HISTORY: The patient is an 82-year-old female, apparently is well known to the Wound Center and to Podiatry where she has a chronic wound in her right leg and follows up in the Wound Center as well. Apparently, she had been placed on an oral antibiotic for 2 weeks recently, off for 1 week, and restarted recently back because of concerns of worsening infection. She cannot give me details on which antibiotic she was on, but she noticed worsening drainage from her right leg along with pain and swelling along with warmth and there were concerns of ongoing infection. She went to [facility] in [place], [place], where she had a CBC checked. White count was elevated at 21,000 with a left shift. Her creatinine was normal. X-rays of her right leg were done, which did not show any acute changes. She was admitted to [facility] for further management. She was seen by the Podiatry Service today and cultures were taken from her right leg. She had a right lateral posterior calf ulceration with necrotic area. Per Podiatry, it did not probe to the bone, but it was tender to palpate. Right medial ulceration was also noted, which had periwound edema and erythema as well. She had 1+ pulses. Erythema and warmth went up to her leg below her knee on the right side. She also had erythematous spots mostly macular on the right medial thigh with warmth. We have been asked to assist with further management. She is currently on empiric antibiotics. She has had low-grade fever since admission. Other review of systems was done with the patient and were negative. PAST MEDICAL HISTORY: 1. Chronic nonhealing wound on her right leg, for which she has seen [facility]. 2. Venous stasis dermatitis of the legs. 3. Coronary artery disease. 4. Atrial fibrillation, for which she is on anticoagulation. 5. Pulmonary hypertension. 6. Hypertension. 7. Hyperlipidemia. 8. Obstructive sleep apnea. 9. Rheumatoid arthritis. 10.Hypothyroidism. 11.Osteoarthritis. PAST SURGICAL HISTORY: 1. Gastric bypass surgery. 2. Coronary stents. 3. Colonoscopy. 4. Hernia repair. 5. Right tibial open reduction and internal fixation. 6. Removal of hardware from her right tibia. 7. Bilateral knee replacements. ALLERGIES: No antibiotic allergies. MEDICATIONS: Reviewed. FAMILY HISTORY: No infections. SOCIAL HISTORY: She lives at home by herself. She denies smoking or alcohol abuse. REVIEW OF SYSTEMS: Similar to history of present illness. Negative unless otherwise stated. PHYSICAL EXAM: Vital Signs: Currently afebrile with a T- max of 100 Fahrenheit. Vital signs are stable. General Appearance: She is alert, oriented, in no acute distress. Head, Eyes, ENT Examination: Unremarkable. Neck: Supple. Lungs: Clear to auscultation. Heart: Regular rate and rhythm. Abdomen: Soft, nontender, nondistended. Extremities: Right lower extremity has a surgical dressing, which I did not remove. There is erythema and warmth proximally and no crepitus or tenderness on palpation. Left foot examination does not show any acute changes. Neurological: No focal deficits. Examination: No CVA tenderness. LABORATORY: White count is down to 14.2, hemoglobin 10.8, platelets 200. BMP showed creatinine of 1.02, sodium 135, potassium 3.6, albumin 2.8. ESR 56. Cultures from her right leg are pending. Prior cultures taken from the right leg had shown Pseudomonas aeruginosa and ampicillin susceptible Enterococcus faecalis. In January, she had cultures from her right leg, which had shown Proteus mirabilis and MSSA. MRI of her right leg done on 03/20/2018, shown limited evaluation to suspect osteomyelitis due to susceptibility artifact from hardware. There is diffuse soft tissue edema and cellulitis at that time. IMPRESSION: 1. Right leg worsening wound infection. Her prior cultures have shown polymicrobial sanchez including Pseudomonas, ampicillin susceptible Enterococcus, Proteus, and MSSA. Rule out underlying osteomyelitis. 2. Right lower extremity cellulitis, likely due to #1. 3. Sepsis, present on admission, likely due to #1 and 2. 4. Leukocytosis, which has improved, likely due to #1 and 2. 5. Peripheral arterial disease. 6. Rheumatoid arthritis. 7. Noncompliance. 8. Coronary artery disease. 9. Hypothyroidism. 10.Chronic obstructive pulmonary disease. 11.Suspicion of left foot posterior and dorsal calcaneal fracture on her x-rays done at [facility]. Most of her wounds are though on the right lower extremity. RECOMMENDATIONS: 1. Treat with Zosyn for now. 2. Follow cultures that were sent by Podiatry. 3. Check MRI of her right lower extremity to look for underlying osteomyelitis. 4. Follow her closely with you. 5. We will discuss with Podiatry. Heather Lynn M.D. Infectious Disease AD:[id number] PROGRESS Observed: 04/20/2018 Status: COMPLETED Source: [facility] 10:54 PM [facility] OTHER [facility] REPOSITORY HNO ID: [id number] Author: Kayla Payton (Pharmacist) Service: Pharmacy Author Type: Pharmacist Type: Progress Notes Filed: 04/20/2018 11:05 PM Note Text: PHARMACY VANCOMYCIN DOSING NOTE Patient Name: Rosa Beltran Admission Date: 04/20/2018 Date of Consult: 04/20/2018 Time of Consult: 10:55 PM Indication: Skin/Soft tissue infection Goal Range: 10-20 mcg/mL RECOMMENDATIONS/PLAN: Pharmacy consulted for vancomycin dosing for Rosa Beltran, a 82 year old, female who is being treated with vancomycin. 1. Patient is currently ordered Vancomycin 1 g IV q12h. Today is day 1 of therapy. Patient received one dose at an outside ED (encounter not in [facility]) At 1700 per RN and PA-C. 2. No vancomycin level has been drawn for this dosing regimen. 3. Will adjust vancomycin to 1.5 g with a dosing interval of q24h based on weight and age. 4. The next vancomycin level will be ordered for 04/24/18 unless clinically indicated sooner. (Pharmacy will order) We will follow patient renal function, vancomycin levels and doses with you during the course of therapy. Additional recommendations will appear in follow up notes. If you have any questions, please contact pharmacy at [phone]. Age: [age] year old Allergies: ALLERGIES No Known Allergies Last 3 Encounter Wt Readings: Date: Wt: 04/20/2018 96.6 kg (212 lb 15.4 oz) 04/14/2018 96.2 kg (212 lb 1.6 oz) 03/17/2018 90.2 kg (198 lb 13.7 oz) Last 1 Encounter Ht Readings: Date: Ht: 04/20/2018 162.6 cm (5' 4) CrCl: Estimated Creatinine Clearance: 56 mL/min (based on SCr of 0.89 mg/dL). Temp (24hrs), Av.8 ?C (100 ?F), Min:37.8 ?C (100 ?F), Max:37.8 ?C (100 ?F) - Current Temp: 37.8 ?C (100 ?F) Labs BUN (mg/dL) Date Value 04/14/2018 21 03/24/2018 27 (H) 03/23/2018 28 (H) Creatinine (mg/dL) Date Value 04/14/2018 0.89 03/24/2018 1.07 (H) 03/23/2018 1.33 (H) WBC (k/uL) Date Value 03/24/2018 4.73 03/23/2018 5.14 03/22/2018 5.21 Vancomycin Levels: No results found for: DANISHA PAYTON, PHARMD, BCPS LACTATE Collected: 04/20/2018 Status: F Source: [facility] 9:17 PM [facility] OTHER CAMPUS REPOSITORY TYPE CODE TESTS RESULT OUT OF REFERENCE UNITS RANGE LAB LACT 0.5-2.2 mmol/L Lactate 1.5 Performed By: #### LACT #### [facility] [address] [place] [address] PROTIME Collected: 04/20/2018 Status: F Source: [facility] 9:12 PM [facility] OTHER CAMPUS REPOSITORY TYPE CODE TESTS RESULT OUT OF RANGE REFERENCE UNITS LAB PSEC 9.7-13.0 sec High PT Sec 21.9 LAB INR 0.9-1.3 High PT INR 2.2 Result Comment: Vitamin K Antagonist (VKA) Therapeutic Range: INR 2 to 3 (Target INR of 2.5) Note: For patients treated with VKA drugs, such as warfarin, the [place] [employer] 2012 Guideline recommends a therapeutic INR range of 2 to 3 (target INR of 2.5). This recommendation includes high-risk patients with antiphospholipid syndrome with previous arterial or venous thromboembolism, current-generation mechanical or bioprosthetic aortic heart valve replacement. Note: Patients with mechanical aortic valve replacement and additional risk factors for thromboembolic events (atrial fibrillation, previous thromboembolism, LV dysfunction, hypercoagulable conditions) or an older generation mechanical AVR (i.e., ball in-Cage) or any mechanical MVR should have a INR therapeutic range of 2.5 to 3.5 (target INR of 3). Shweta GH, et al. Chest 2012, 141:7S-47S Genevieve RA, et al. [facility] 2017, 70: 252-289 Performed By: #### PT #### [facility] [address] [facility] [phone] SED RATE WESTERGREN Collected: 04/20/2018 Status: F Source: [facility] 9:12 PM [facility] OTHER [place] REPOSITORY TYPE CODE TESTS RESULT OUT OF REFERENCE UNITS RANGE LAB WSR 0-20 mm/hr Sed Rate High Westergren 56 Performed By: #### WSR, HSCRP #### [facility] [address] [id number] ULTRA-SENSITIVE CRP Collected: 04/20/2018 Status: F Source: [facility] 9:12 PM [facility] REPOSITORY TYPE CODE TESTS RESULT OUT OF REFERENCE UNITS RANGE LAB CRPUS <3.1 mg/L High UltraSens 80.3 C-ReacProt Result Comment: (NOTE) hsCRP < 1.0 mg/L, relative risk is low hsCRP 1.0-3.0 mg/L, relative risk is average hsCRP > 3.0 mg/L, relative risk is high Reference: Christofer TA, Andriy GA, Bhavin RW, et al. Markers of Inflammation and Cardiovascular Disease. Application to Clinical and Public Health Practice. A Statement for Healthcare Professionals From the Centers for Disease Control and Prevention and the [place] [employer]. Circulation 2003;107:499-511. Performed By: #### WSR, HSCRP #### [facility] [address] [address] HISTORY PHYSICAL Observed: 04/20/2018 Status: COMPLETED Source: [facility] 7:51 PM [facility] REPOSITORY HNO ID: [id number] Author: Justin Dangelo (Pa) Service: General Internal Medicine Author Type: Physician Motor Vehicle Compliance Analyst Type: HANDP Filed: 04/20/2018 8:55 PM Note Text: Attestation signed by Xavier Mercado at 04/20/2018 9:58 PM [facility] STAFF PHYSICIAN NOTE OF PERSONAL INVOLVEMENT IN CARE I have reviewed the history and physical examination obtained and documented by the physician conservation assistant and I personally participated in the [place] components. I have discussed the case and management of the patient's care. 82 Y F with PMHx of venous stasis ulcer RLE, CAD s/p PCI, AF on coumadin, Pulm HTN, HTN, HLD, BEBA, RA, hypothyroid? who is transferred from [facility] with chronic RLE wounds with suspected acute cellulitis with elevated wbc. She was admitted last month, seen by ID, podiatry, had debridement in pt and as out pt 2 weeks ago. She does have [facility] who noticed worsening signs of infection today so sent her to ED. ? XRAY L foot: Fx through posterior and dorsal calcaneous, soft tissue swelling over dorsoum of foot w/o underlying fx or osseous erosion. A/P: She did receive vancomycin in the ED Continue IV antibiotics Wound care, ID and podiatry consult f/u wound cultures Xavier Mercado MD HOSPITAL MEDICINE HISTORY AND PHYSICAL EXAM PATIENT NAME: Rosa Beltran SERVICE DATE: 04/20/2018 SERVICE TIME: 7:51 PM Primary Care Physician: Mani Newman MD NIGHT COVERAGE Page [phone] for any questions between 5.30p-7.30a ASSESSMENT AND PLAN Active Hospital Problems Diagnosis - Venous stasis ulcer of right lower leg with edema of right lower leg (HCC) She was admitted for same last month and seen by ID and podiatry and had wound debrided. She had outpatient visit with Dr. Dempsey on 04/11/18 and wound was debrided at that time. Noticed drainage increased in the past few days. Restarted on ABx 2 days ago. Leukocytosis 18.3, low grade temp 100.0. XRAY L foot at OSH: Fx through posterior and dorsal calcaneous, soft tissue swelling over dorsoum of foot w/o underlying fx or osseous erosion. Plan: Continue vanco, podiatry, ID, and wound care consults. Wound Cx. Check ESR, CRP, lactate. - Chronic atrial fibrillation (HCC) On coumadin, rate controlled, INR therapeutic. Monitor on tele. SUBJECTIVE CHIEF COMPLAINT: cellulitis HPI: This is a 82 year old female with PMHx of venous stasis ulcer RLE, CAD s/p PCI, AF on coumadin, Pulm HTN, HTN, HLD, BEBA, RA, hypothyroid who presents from [facility] with chronic RLE wounds with acute infection. She was recently restarted on PO ABx, she states she was on them for 2 weeks, then off for one week before restarting 2 days ago. She cannot recall name of ABx, it is Rx'ed by wound care team. Over the past few days she has noticed clear drainage from RLE. She has a low grade temperature. She was admitted for same last month and seen by ID and podiatry and had wound debrided, wound cx at the time showed E faecalis and P aeruginosa. She had outpatient visit with Dr. Dempsey on 04/11/18 and wound was debrided at that time. ED treatment: wbc 18.3k, started on vanco. XRAY L foot: Fx through posterior and dorsal calcaneous, soft tissue swelling over dorsoum of foot w/o underlying fx or osseous erosion. PAST MEDICAL HISTORY: PAST MEDICAL HISTORY Diagnosis Date - Acquired hypothyroidism - Acute respiratory failure with hypoxia ([facility]) 09/30/2017 - Atrial fibrillation ([facility]) - CAD (coronary artery disease) Dr. Bernda Awan Hts, Promus element KIMMY LAD 11/20/2012, Stress test 04/2014 inferoapical reversible ischemia,small LVEF 48- 50%, LHC 12/2014 L main-normal, LAD widely patent, Cx diffuse mild luminal irregularities with 80%focal stenosis distal, RCA dominant with minimal luminal irregularities. PTCA and Promus premier KIMMY distal Cx 12/20/2014, RX aspirin and plavix - Cecal ulcer 06/10/2017 - Chronic atrial fibrillation (HCC) 10/08/2016 - COPD (chronic obstructive pulmonary disease) (HCC) - Depressive disorder 12/29/2016 - Disruption of surgical wound 09/2015 Right tibia - Dorsalgia 12/29/2016 - Dyslipidemia - Gastric bypass status for obesity 12/29/2016 - Gastroesophageal reflux disease without esophagitis 10/08/2016 - HTN (hypertension) - Muscular weakness 12/29/2016 - Primary osteoarthritis involving multiple joints 12/29/2016 - Pure hypercholesterolemia - Rheumatoid arthritis (HCC) 2007 - Sleep apnea - Stented coronary artery 12/29/2016 PAST SURGICAL HISTORY: PAST SURGICAL HISTORY Procedure Laterality Date - CC CORONARY STENT 11/20/2012 KIMMY LAD - CC CORONARY STENT 12/20/2014 KIMMY, Cfx - SECTION [facility]ons[facility] cecal ulcer - GASTRIC BYPASS HX 1986 - HERNIA REPAIR HX 1987; 1989 - PAST SURGICAL HISTORY OF Right 09/2015 right tibia fracture ORIF - PAST SURGICAL HISTORY OF Right 01/20/2016 Removal of hardware, right tibia - TOTAL KNEE REPLACEMENT Right 2003 [facility] Gen. - TOTAL KNEE REPLACEMENT Left 2004 [facility] Gen. FAMILY HISTORY: No family history on file. SOCIAL HISTORY: Social History Substance Use Topics - Smoking status: Passive Smoke Exposure - Never Smoker - Smokeless tobacco: Never Used Comment: smoked for 40 years - Alcohol use No MEDICATIONS: Reviewed ALLERGIES: ALLERGIES No Known Allergies REVIEW OF SYSTEM: PAIN ASSESSMENT: Negative for pain, history of chronic pain, or current treatment for a chronic pain condition. GENERAL: No weight loss, malaise or fevers. HEENT: Negative for frequent or significant headaches, No changes in hearing or vision, no nose bleeds or other nasal problems NECK: Negative for lumps, goiter, pain and significant neck swelling RESPIRATORY: Negative for cough, hemoptysis, wheezing or shortness of breath CARDIOVASCULAR: Negative for chest pain, leg swelling or palpitations. GI: No nausea, vomiting, or diarrhea : No history of dysuria, frequency or incontinence. MUSCULOSKELETAL: Negative for joint pain or swelling, back pain or muscle pain. SKIN: RLE chronic wound with acute changes. PSYCH: Negative for sleep disturbance, mood disorder and recent psychosocial stressors. HEMATOLOGY/LYMPHOLOGY: Negative for prolonged bleeding, bruising easily or swollen nodes. ENDOCRINE: Negative for cold or heat intolerance, polyuria, polydipsia and goiter. NEURO: No history of headaches, syncope, paralysis, seizures or tremors OBJECTIVE PHYSICAL EXAM: BP 127/64 Pulse 97 Temp 100 Resp 18 Ht 5' 4 (1.63m) Wt 212 lb 15.4 oz (96.6kg) SpO2 98% BMI 36.54 kg/(m2). GENERAL: alert, no distress, cooperative SKIN: posterior lateral RLE wound, medial RLE wound, RLE with sloughing and green/yellow discharge on bandage. Blanching erythema to intact skin of RLE. NECK: no jugulovenous distention, supple BACK: Back symmetric, Normal curvature, ROM normal, No CVAT. LUNGS: Lungs clear to auscultation. Good diaphragmatic excursion. CARDIAC: RRR; no rubs, murmurs, or gallops ABDOMEN: Abdomen soft, non-tender. BS normal. No masses or organomegaly. EXTREMITIES: BLE edema. NEURO: Sensation grossly intact., Cranial nerves II-XII intact DATA: Diagnostic tests reviewed for today's visit: Most recent labs Most recent imaging Most recent EKG Reviewed labs from OSH. VTE Prophylaxis: Patient is already anti-coagulated. Disposition: TBD Plan of care discussed with: Patient and RN SIGNATURE: Justin Dangelo PA-C DATE: April 20, 2018 TIME: 7:51 PM XR ANKLE MINIMUM 3 Observed: 04/20/2018 Status: C Source: [employer] VIEWS RIGHT 4:51 PM [facility] REPOSITORY ADDENDUM Oblique fracture of the posterior calcaneus is present but partially obscured due to overlapping structures. Interpreted By: Jatin Ayers MD Preliminary Report By: Jatin yAers MD Electronically Signed By: Jatin Ayers MD Dictated Date: 04/20/2018 6:08:21 PM Prelim Date: 04/20/2018 6:09:07 PM Sign Date: 04/20/2018 6:09:07 PM ORIGINAL RIGHT ankle 3 views Clinical statement: Pain, Injury COMPARISON: 04/20/2018 AP, lateral, and oblique views were obtained. Metallic plate and threaded screws are present along the shaft of the distal fibula. There is a remote healed oblique fracture of the distal shafts of the t ibia. No acute fracture seen. Narrowing of the posterior tibiotalar joint space is present. Calcaneal enthesophytes are present. IMPRESSION: No acute osseous abnormality. Narrowing of the tibiotalar joint space. Interpreted By: Jatin Ayers MD Preliminary Report By: Jatin Ayers MD Electronically Signed By: Jatin Ayers MD Dictated Date: 04/20/2018 5:09:36 PM Prelim Date: 04/20/2018 5:09:36 PM Sign Date: 04/20/2018 5:13:52 PM XR FOOT MINIMUM 3 Observed: 04/20/2018 Status: F Source: [facility] VIEWS RIGHT 4:51 PM [facility]OUNDATION REPOSITORY ORIGINAL XR FOOT MINIMUM 3 VIEWS RIGHT CLINICAL STATEMENT: RIGHT foot pain and swelling, no known injury COMPARISON: RIGHT ankle radiograph 10/13/2015 FINDINGS: There is a fracture through the posterior and plantar aspect of the calcaneus with minimal distraction through the fracture line. This is new from the RIGHT ankle radiograph 10/13/2015. No add itional fracture or dislocation identified. Pes planus deformity noted, unchanged. Degenerative changes are seen throughout the mid foot. The bones appear demineralized. Enthesophyte formation noted amaris ng the posterior aspect of the calcaneus. Fixation yousif along the lateral aspect of the fibula partially visualized. There is soft tissue swelling overlying the dorsum of the foot overlying the tarsals a nd metatarsals without underlying osseous erosion or fracture. IMPRESSION: 1. Fracture through the posterior and dorsal aspect of the calcaneus, new from the 10/13/2015 study. 2. Soft tissue swelling overlying the dorsum of the foot without underlying fracture or osseous erosion. If concern for osteomyelitis, MRI of the foot or three-phase nuclear medicine bone scan could be considered. 3. Diffuse bony demineralization. I have personally reviewed the images of this examination and agree with the resident's findings and interpretation. Interpreted By: Jatin Ayers MD Preliminary Report By: Amauri Steiner DO Electronically Signed By: Jatin Ayers MD Dictated Date: 04/20/2018 5:04:06 PM Prelim Date: 04/20/2018 5:09:34 PM Sign Date: 04/20/2018 6:07:38 PM XR CHEST 1 VIEW Observed: 04/20/2018 Status: F Source: [employer] 4:50 PM [facility] REPOSITORY ORIGINAL XR CHEST 1 VIEW upright AP chest at 4:27 PM. CLINICAL STATEMENT: Chest pain, shortness of breath COMPARISON: Chest radiograph 02/26/2018 FINDINGS: There is stable cardiomegaly. The aorta is atherosclerotic. The mediastinal silhouette is stable. Mixed patchy and interstitial opacities overlying the lungs diffusely appear essentially uncha nged from the prior exam 02/26/2018. No definite pleural effusion. No pneumothorax. Degenerative changes seen at the shoulders. IMPRESSION: No significant interval change, with bilateral opacities likely representing pulmonary edema and/or chronic lung disease. Stable cardiomegaly. I have personally reviewed the images of this examination and agree with the resident's findings and interpretation. Interpreted By: Jatin Ayers MD Preliminary Report By: Amauri Steiner DO Electronically Signed By: Jatin Ayers MD Dictated Date: 04/20/2018 5:01:45 PM Prelim Date: 04/20/2018 5:03:47 PM Sign Date: 04/20/2018 5:56:[address] HEAD OR BRAIN W/O Observed: 04/20/2018 Status: F Source: [employer] CONTRAST 4:50 PM [facility] REPOSITORY ORIGINAL CT HEAD OR BRAIN W/O CONTRAST Clinical Statement: change in mental status/weakness/aphasia TECHNIQUE: Axial CT images from skull base to vertex without IV contrast. This exam was performed according to our departmental dose optimization program, and includes the following measures where appli cable: automated exposure control, adjustment of the mAs and/or kVp according to patient size and/or exam, and an iterative reconstruction algorithm. COMPARISON: Head CT 06/09/2017 FINDINGS: The examination is degraded by motion artifact. There is no intracranial hemorrhage, mass, mass effect, or abnormal extra-axial fluid collection. No CT evidence for acute territorial infarct. In the RIGHT posterior parietal lobe there is an area of suspected prior ulysses hole and underlying encephalomalacia present, not significantly changed from prior study. Scattered foci of white matter hyp oattenuation are noted in the cerebral white matter, nonspecific but compatible with moderate chronic microvascular angiopathy. The density in the larger dural venous sinuses is grossly normal. Atherosc lerotic calcifications are present in the cavernous carotid arteries bilaterally. There is proportionate enlargement of the ventricular system and cortical sulci, compatible with parenchymal volume loss. The skull base and calvarium demonstrate no acute abnormality. The mastoid air cells are predominantly clear. No significant paranasal sinus disease. IMPRESSION: No acute intracranial abnormality. I have personally reviewed the images of this examination and agree with the resident's findings and interpretation. Interpreted By: Jatin Ayers MD Preliminary Report By: Dorene Esteban MD Electronically Signed By: Jatin Ayers MD Dictated Date: 04/20/2018 4:57:27 PM Prelim Date: 04/20/2018 5:07:30 PM Sign Date: 04/20/2018 5:55:30 PM CBC Collected: 04/20/2018 Status: C Source: [facility] 3:57 PM [facility] REPOSITORY TYPE CODE TESTS RESULT OUT OF REFERENCE UNITS RANGE LAB WBC(LOINC) 4.60-10.80 10 3/mcL High WBC 18.30 LAB RBCCT(LOINC 4.20-5.40 10 6/mcL ) RBC 4.56 LAB HGB(LOINC) 12.0-16.0 G/dL Hgb 12.6 LAB HCT(LOINC) 37.0-47.0 % Hct 39.3 LAB MCV(LOINC) 80.0-94.0 fL MCV 86.2 LAB MCH(LOINC) 27.0-31.2 pg MCH 27.6 LAB MCHC(LOINC) 33.0-37.0 G/dL Low MCHC 32.0 LAB RDW(LOINC) 11.5-14.5 % High RDW 17.2 LAB PLT(LOINC) 130-400 10 3/mcL Platelet 245 LAB MPV(LOINC) 7.4-10.4 fL MPV 8.6 Performed By: #### APTT, DIFF, BMP, GFR, MORPH, PRO, CBC #### [facility] [address] [place], [place] [address] PRO Collected: 04/20/2018 Status: F Source: [facility] 3:57 PM [facility] REPOSITORY TYPE CODE TESTS RESULT OUT OF REFERENCE UNITS RANGE LAB PT(LOINC) 9.3-14.6 seconds Protime High 29.3 LAB INR(LOINC) 0.9-1.2 ratio PT High International 2.9 Ratio Result Comment: Standard Dose 2.0 - 3.0 High Dose 2.5 - 3.5 The recommended therapeutic range for oral anticoagulant therapy is: LOW RISK: Prophylaxis of venous thrombosis INR: 2.0 - 3.0 Treatment of pulmonary embolism 2.0 - 3.0 Prevention of systemic embolism 2.0 - 3.0 HIGH RISK: Mechanical prosthetic valves 2.5 - 3.5 Performed By: #### APTT, DIFF, BMP, GFR, MORPH, PRO, CBC #### [facility] [place] [address] .GFR Collected: 04/20/2018 Status: F Source: [facility] 3:57 PM [facility] REPOSITORY TYPE CODE TESTS RESULT OUT OF REFERENCE UNITS RANGE LAB GFRAA(LOINC ml/min/1.73 ) sqm GFR 71 [place] Result Comment: GFR Population mean for , Non- Americans Ages 20-29 = 116 mL/min/1.73 sq.m. Ages 30-39 = 107 mL/min/1.73 sq.m. Ages 40-49 = 99 mL/min/1.73 sq.m. Ages 50-59 = 93 mL/min/1.73 sq.m. Ages 60-69 = 85 mL/min/1.73 sq.m. Ages 70+ = 75 mL/min/1.73 sq.m. Chronic Kidney Disease: Less than 60 mL/min/1.73 square meters End Stage Renal Disease: Less than 15 mL/min/1.73 square meters LAB GFRNO(LOINC) ml/min/1.73sqm GFR Non- 59 Result Comment: GFR Population mean for , Non- Americans Ages 20-29 = 116 mL/min/1.73 sq.m. Ages 30-39 = 107 mL/min/1.73 sq.m. Ages 40-49 = 99 mL/min/1.73 sq.m. Ages 50-59 = 93 mL/min/1.73 sq.m. Ages 60-69 = 85 mL/min/1.73 sq.m. Ages 70+ = 75 mL/min/1.73 sq.m. Chronic Kidney Disease: Less than 60 mL/min/1.73 square meters End Stage Renal Disease: Less than 15 mL/min/1.73 square meters Performed By: #### APTT, DIFF, BMP, GFR, MORPH, PRO, CBC #### [address] [address] APTT Collected: 04/20/2018 Status: F Source: [facility] 3:57 PM [facility] REPOSITORY TYPE CODE TESTS RESULT OUT OF REFERENCE UNITS RANGE LAB PDOSE(LOIN C) Heparin dose Coumadin PO (APTT) LAB APTT0(LOIN 25.1-37.9 seconds C) High APTT 38.3 Result Comment: For Heparin anticoagulation therapy, the recommended therapeutic range is: 47.7-87.7 seconds (1.5 - 2.5 the normal plasma mean). Patients on heparin therapy may have an extreme result. Performed By: #### APTT, DIFF, BMP, GFR, MORPH, PRO, CBC #### [id number] [place], [place] [address] BMP Collected: 04/20/2018 Status: F Source: [facility] 3:57 PM [facility] REPOSITORY TYPE CODE TESTS RESULT OUT OF REFERENCE UNITS RANGE LAB GLU(LOINC) 83-110 mg/dL Glucose Level 102 LAB NA(LOINC) 136-146 mEq/L Sodium Level 137 LAB K(LOINC) 3.5-5.1 mEq/L Potassium Level 4.5 LAB CL(LOINC) 98-107 mEq/L Chloride 101 LAB CO2(LOINC) 23-31 mEq/L CO2 26 LAB EBAL(LOINC mEq/L ) Electrolyte Balance 10.0 LAB BUN(LOINC) 7.0-18.0 mg/dL BUN High 27.5 LAB CRE(LOINC) 0.6-1.2 mg/dL Creatinine Lvl (s) 0.9 LAB BC(LOINC) 7-27 ratio High BUN/Creatinine 31 Ratio LAB CA(LOINC) 8.4-10.2 mg/dL Calcium Lvl 9.1 Performed By: #### APTT, DIFF, BMP, GFR, MORPH, PRO, CBC #### [id number] [place], [place] [address] .MANUAL DIFF Collected: 04/20/2018 Status: F Source: [facility] 3:57 PM [facility] REPOSITORY TYPE CODE TESTS RESULT OUT OF REFERENCE UNITS RANGE LAB NEUM(LOINC 37.0-80.0 % ) High Neutrophil %, 81.0 Manual LAB LYMM(LOINC 10.0-50.0 % ) Low Lymphocyte %, 6.0 Manual LAB MONM(LOINC 1.7-13.0 % ) Low Monocyte %, Manual 0.0 LAB EOM(LOINC) 0.0-7.0 % Eosinophil %, 1.0 Manual LAB BASM(LOINC 0.0-2.5 % ) Basophil %, Manual 0.0 LAB BAND(LOINC 0.0-5.0 % ) Bands High 12.0 LAB ANEUM(LOIN 2.85-6.16 10 3/mcL C) High Neutrophil, Abs 16.60 Manual LAB ABLYMM(MONI 0.77-3.85 10 3/mcL NC) Lymphocyte, Abs 1.20 Manual LAB AMONM(LOIN 0.15-1.00 10 3/mcL C) Monocyte, Abs 0.40 Manual LAB AEOSM(LOIN 0.00-0.40 10 3/mcL C) Eosinophil, Abs 0.00 Manual LAB ABASM(LOIN 0.00-0.19 10 3/mcL C) Basophil, Abs 0.10 Manual Performed By: #### APTT, DIFF, BMP, GFR, MORPH, PRO, CBC #### [place] [id number] .MORPH Collected: 04/20/2018 Status: F Source: [facility] 3:57 PM [facility] REPOSITORY TYPE CODE TESTS RESULT OUT OF REFERENCE UNITS RANGE LAB PLTE(LOINC) Platelet Normal Estimate Performed By: #### APTT, DIFF, BMP, GFR, MORPH, PRO, CBC #### [id number] UA Collected: 04/20/2018 Status: F Source: [facility] 3:57 PM [facility] REPOSITORY TYPE CODE TESTS RESULT OUT OF REFERENCE UNITS RANGE LAB SPCUA(LOIN C) UA Specimen Type Catheter LAB CLRUA(LOIN C) UA Color Yellow LAB APPUA(LOIN Clear C) UA Appear Clear LAB SGUA(LOINC ) UA Spec Grav 1.020 LAB GLUA(LOINC Negative mg/dL ) UA Glucose Negative LAB BILUA(LOIN Negative C) UA Bili Negative LAB KETUA(LOIN Negative mg/dL C) UA Ketones Negative LAB BLDUA(LOIN Negative C) UA Blood Negative LAB PHUA(LOINC ) UA pH 5.0 LAB PROUA(LOIN Negative mg/dL C) UA Protein Negative LAB UROUA(LOIN E.U./dL C) UA Urobilinogen 0.2 LAB NITUA(LOIN Negative C) UA Nitrite Negative LAB LEUUA(LOIN Negative C) UA Leuk Est Negative Performed By: #### UA, UAMICAO #### [place] [id number] .URINALYSIS MICROSCOPIC Collected: 04/20/2018 Status: F Source: [facility] ([facility]) 3:57 PM [facility] REPOSITORY TYPE CODE TESTS RESULT OUT OF REFERENCE UNITS RANGE LAB WBCUA(LOIN None Seen /hpf C) UA WBC None Seen LAB RBCUA(LOIN None Seen /hpf C) UA RBC None Seen LAB EPIUA(LOIN None Seen /hpf C) UA Squam Epithelial None Seen Performed By: #### UA, UAMICAO #### [address] [place], [place] [address] PROGRESS Observed: 04/14/2018 Status: COMPLETED Source: [facility] 5:37 PM [facility] REPOSITORY HNO ID: [id number] Author: Corey Mckeon Service: (none) Author Type: Physician Type: Progress Notes Filed: 04/14/2018 5:41 PM Note Text: PERTINENT CARDIAC HISTORY ASHD - PCI LAD 2012, PCI Cx 2014 Takatsubo? HL HTN Lymphedema CHF Atrial fib Bilateral radial artery occlusion? ADHERENCE TO GUIDELINES ANKIT-I or ARB for HF with prior LVEF<40 (NQF 0081) - N/A ASA or Plavix for ASHD (NQF 0067) - met Beta louann for ASHD with prior CO or prior LVEF<40 (NQF 0070) - met Beta louann for HF with prior LVEF<40 (NQF 0083) - N/A ANKIT-I or ARB for ASHD with DM or prior LVEF<40 (NQF 0066) - met Statin therapy for ASHD or FHL or DM - to be started BMI documented and plan if >25 (NQF 0421) - lifestyle recommendation form Tobacco use screening and referral (NQF 0028) - lifestyle recommendation form Recommendation for whole food, plant based diet - lifestyle recommendation form CLINICAL IMPRESSION/PLAN: Rosa Beltran could use more vigorous diuresis Basic profile will be checked today. I've asked her to increase Zaroxolyn to 5 milligrams twice daily and Aldactone to 50 milligrams twice daily for the next several days and report vital signs, weight and status of her edema early next week. We will push her diuretic to the point where she becomes prerenal or more hypotensive and then back off. It is very difficult to assess her state of hydration due to the concomitant lymphedema. I will see her in 3 months or as needed. If there is increased chest pain or shortness of breath, she has been advised to contact me. Written and verbal health teaching given to patient, patient verbalizes understanding and agrees with treatment plan. DIAGNOSIS FOR VISIT: ASHD CHF HISTORY OF PRESENT ILLNESS Rosa Beltran returns for follow-up of multiple cardiac issues, as noted above. She had a recent admission for cellulitis and decompensated diastolic heart function. No changes were made in her medications. She has gained weight since discharge. She denies chest pain and increased weeping from her lower extremities. She denies syncope, TIAs, amaurosis and claudication. She has not been aware of her heart rhythm. ALLERGIES: ALLERGIES No Known Allergies CURRENT OUTPATIENT MEDICATIONS: ergocalciferol, vitamin D2, (VITAMIN D2 ORAL) Take by mouth. spironolactone (ALDACTONE) 25 mg tablet Take 2 tablets by mouth twice daily. metOLAzone (ZAROXOLYN) 2.5 mg tablet Take 2 tablets by mouth twice daily. metoprolol tartrate, short acting, (LOPRESSOR) 25 mg tablet Take 0.5 tablets by mouth twice daily. lisinopril (ZESTRIL) 2.5 mg tablet Take 1 tablet by mouth every evening. omeprazole (PRILOSEC) 20 mg capsule Take 1 capsule by mouth once daily. docusate sodium (COLACE) 100 mg capsule Take 1 capsule by mouth once daily as needed for Constipation. furosemide (LASIX) 40 mg tablet Take 2 tablets by mouth twice daily. sodium hypochlorite (DAKIN'S SOLUTION) 0.125 % soln Dakin's moistened gauze packing every other day to wound for bacterial control. warfarin (COUMADIN) 3 mg tablet Take 1 tablet by mouth daily as directed. Patient is taking 2mg Tuesday and and 3mg other days. gabapentin (NEURONTIN) 300 mg capsule Take 1 capsule by mouth twice daily for 180 days. ASCORBIC ACID (VITAMIN C ORAL) Take 1 tablet by mouth twice daily. silver sulfADIAZINE (SILVADENE) 1 % cream Apply to leg wounds as directed. acetaminophen (TYLENOL) 500 mg tablet Take 1,000 mg by mouth every 8 hours as needed. aspirin, enteric coated (ASPIRIN, ENTERIC COATED) 81 mg EC tablet Take 81 mg by mouth every evening. therapeutic multivitamin w/ iron (THERAGRAN-M) 9 mg iron-400 mcg tablet Take 1 tablet by mouth once daily. levothyroxine (LEVOXYL) 100 mcg tablet Take 1 tablet by mouth once daily. Take on empty stomach. For Thyroid. COMPOUNDED PRESCRIPTION Calcium Alginate 4x4 Dressing, change daily Dx: Blister left leg with infection S80.822A, L08.9; Lymphedema I89.0. Wound dimensions: 4 x 3 cm Zinc Sulfate 220 mg tab Take 1 tablet by mouth once daily for 14 days. PHYSICAL EXAMINATION: VITAL SIGNS: BP 114/70 Pulse 74 Ht 5' 4 (1.63m) Wt 212 lb 1.6 oz (96.2kg) SpO2 97% BMI 36.39 kg/(m2). Chest: Clear to percussion and auscultation. Trachea is midline. Air entry is equal. Cardiac: Irregularly irregular rhythm. S1 and S2 are normal. PMI is nondisplaced. There is a soft systolic ejection murmur. Carotids are brisk without bruits. JVP is less than 10 cm. Abdomen: Soft and nontender. There are no pulsatile masses or bruits. No liver enlargement. Bowel sounds are active. Extremities: 3 plus pitting edema with lymphedema. There is no active weeping at this time. Pulses are intact and symmetrical. Recent labs were reviewed. Renal function has improved. She has not had labs done since hospital discharge. Recent EKG shows atrial fibrillation with controlled ventricular response. Echocardiogram was done while she was hospitalized in [place]. Her pulmonary hypertension had improved slightly. There is only moderate tricuspid insufficiency. Electronically Signed: Corey Mckeon MD April 14, 2018 5:37 PM CC: Mani Newman MD PROTIME Collected: 04/14/2018 Status: F Source: [facility] 12:15 PM [facility] REPOSITORY TYPE CODE TESTS RESULT OUT OF RANGE REFERENCE UNITS LAB PSEC 9.7-13.0 sec High PT Sec 19.6 LAB INR 0.9-1.3 High PT INR 2.0 Result Comment: Vitamin K Antagonist (VKA) Therapeutic Range: INR 2 to 3 (Target INR of 2.5) Note: For patients treated with VKA drugs, such as warfarin, the [place] [employer] 2012 Guideline recommends a therapeutic INR range of 2 to 3 (target INR of 2.5). This recommendation includes high-risk patients with antiphospholipid syndrome with previous arterial or venous thromboembolism, current-generation mechanical or bioprosthetic aortic heart valve replacement. Note: Patients with mechanical aortic valve replacement and additional risk factors for thromboembolic events (atrial fibrillation, previous thromboembolism, LV dysfunction, hypercoagulable conditions) or an older generation mechanical AVR (i.e., ball in-Cage) or any mechanical MVR should have a INR therapeutic range of 2.5 to 3.5 (target INR of 3). Shweta GH, et al. Chest 2012, 141:7S-47S Genevieve RA, et al. [facility] 2017, 70: 252-289 Performed By: #### PT #### [facility] [address] [place] [address] BASIC METABOLIC PANL Collected: 04/14/2018 Status: F Source: [facility] 12:15 PM [facility] REPOSITORY TYPE CODE TESTS RESULT OUT OF REFERENCE UNITS RANGE LAB GLU 74-99 mg/dL Glucose 97 Result Comment: The [place] [employer] (ADA) provides guidance for cutoff values for fasting glucose and random glucose. The ADA defines fasting as no caloric intake for at least 8 hours. Fas ting plasma glucose results between 100 to 125 mg/dL indicate increased risk for diabetes (prediabetes). Fasting plasma glucose results greater than or equal to 126 mg/dL meet the criteria for diagnosis of diabetes. In the absence of unequivocal hyperglycemia, results should be confirmed by repeat testing. In a patient with classic symptoms of hyperglycemia or hyperglycemic crisis, random plasma glucose results greater than or equal to 200 mg/dL meet the criteria for diagnosis of diabetes. Reference: Standards of Medical Care in Diabetes 2016, [place] [employer]. Diabetes Care. 2016.39(Suppl 1). LAB BUN 7-21 mg/dL BUN 21 LAB CRET 0.58-0.96 mg/dL Creatinine 0.89 LAB NA 136-144 mmol/L Sodium 137 LAB K 3.7-5.1 mmol/L Potassium 4.1 LAB CL 97-105 mmol/L Chloride 99 LAB CO2 22-30 mmol/L CO2 28 LAB AGAP 9-18 mmol/L Anion Gap 10 LAB CA 8.5-10.2 mg/dL Calcium, Total 8.7 LAB GFRAA eGFR- Amer. >60 LAB GFRNAA . eGFR-All Other Races >60 Result Comment: eGFR (Estimated GFR) Units of measure: mL/min/1.73 meters squared eGFR is derived from the reexpressed MDRD Study equation using the following parameters: serum creatinine, age, gender and race. The creatinine assay has been calibrated to be traceable to IDMS. An eGFR <60 mL/min/1.73m2 for >3 months is consistent with chronic kidney disease. Refer to KDOQI guidelines for clinical interpretation. In patients with unstable renal function, e.g. those with acute kidney injury, the eGFR may not accurately reflect actual GFR. Performed By: #### BMP #### [facility] [address] [place] [address] CNOV Observed: 04/14/2018 Status: COMPLETED Source: [facility] 11:30 AM [facility] REPOSITORY Office Visit (CAWSTR) ROSA BELTRAN ([id number]) 1935 F Date Time Provider Department 04/14/18 11:30 AM COREY MCKEONWSTR During your visit today, we recorded the following information about you: Pulse Blood pressure Weight Height 74/minute 114/70 96.2 kg 1.626 m Corey Mckeon MD 04/14/2018 5:41 PM Signed PERTINENT CARDIAC HISTORY ASHD - PCI LAD 2012, PCI Cx 2014 Takatsubo? HL HTN Lymphedema CHF Atrial fib Bilateral radial artery occlusion? ADHERENCE TO GUIDELINES ANKIT-I or ARB for HF with prior LVEF<40 (NQF 0081) - N/A ASA or Plavix for ASHD (NQF 0067) - met Beta louann for ASHD with prior CO or prior LVEF<40 (NQF 0070) - met Beta louann for HF with prior LVEF<40 (NQF 0083) - N/A ANKIT-I or ARB for ASHD with DM or prior LVEF<40 (NQF 0066) - met Statin therapy for ASHD or FHL or DM - to be started BMI documented and plan if >25 (NQF 0421) - lifestyle recommendation form Tobacco use screening and referral (NQ 0028) - lifestyle recommendation form Recommendation for whole food, plant based diet - lifestyle recommendation form CLINICAL IMPRESSION/PLAN: Rosa Beltran could use more vigorous diuresis Basic profile will be checked today. I've asked her to increase Zaroxolyn to 5 milligrams twice daily and Aldactone to 50 milligrams twice daily for the next several days and report vital signs, weight and status of her edema early next week. We will push her diuretic to the point where she becomes prerenal or more hypotensive and then back off. It is very difficult to assess her state of hydration due to the concomitant lymphedema. I will see her in 3 months or as needed. If there is increased chest pain or shortness of breath, she has been advised to contact me. Written and verbal health teaching given to patient, patient verbalizes understanding and agrees with treatment plan. DIAGNOSIS FOR VISIT: ASHD CHF HISTORY OF PRESENT ILLNESS Rosa Beltran returns for follow-up of multiple cardiac issues, as noted above. She had a recent admission for cellulitis and decompensated diastolic heart function. No changes were made in her medications. She has gained weight since discharge. She denies chest pain and increased weeping from her lower extremities. She denies syncope, TIAs, amaurosis and claudication. She has not been aware of her heart rhythm. ALLERGIES: ALLERGIES No Known Allergies CURRENT OUTPATIENT MEDICATIONS: ergocalciferol, vitamin D2, (VITAMIN D2 ORAL) Take by mouth. spironolactone (ALDACTONE) 25 mg tablet Take 2 tablets by mouth twice daily. metOLAzone (ZAROXOLYN) 2.5 mg tablet Take 2 tablets by mouth twice daily. metoprolol tartrate, short acting, (LOPRESSOR) 25 mg tablet Take 0.5 tablets by mouth twice daily. lisinopril (ZESTRIL) 2.5 mg tablet Take 1 tablet by mouth every evening. omeprazole (PRILOSEC) 20 mg capsule Take 1 capsule by mouth once daily. docusate sodium (COLACE) 100 mg capsule Take 1 capsule by mouth once daily as needed for Constipation. furosemide (LASIX) 40 mg tablet Take 2 tablets by mouth twice daily. sodium hypochlorite (DAKIN'S SOLUTION) 0.125 % soln Dakin's moistened gauze packing every other day to wound for bacterial control. warfarin (COUMADIN) 3 mg tablet Take 1 tablet by mouth daily as directed. Patient is taking 2mg Tuesday and and 3mg other days. gabapentin (NEURONTIN) 300 mg capsule Take 1 capsule by mouth twice daily for 180 days. ASCORBIC ACID (VITAMIN C ORAL) Take 1 tablet by mouth twice daily. silver sulfADIAZINE (SILVADENE) 1 % cream Apply to leg wounds as directed. acetaminophen (TYLENOL) 500 mg tablet Take 1,000 mg by mouth every 8 hours as needed. aspirin, enteric coated (ASPIRIN, ENTERIC COATED) 81 mg EC tablet Take 81 mg by mouth every evening. therapeutic multivitamin w/ iron (THERAGRAN-M) 9 mg iron-400 mcg tablet Take 1 tablet by mouth once daily. levothyroxine (LEVOXYL) 100 mcg tablet Take 1 tablet by mouth once daily. Take on empty stomach. For Thyroid. COMPOUNDED PRESCRIPTION Calcium Alginate 4x4 Dressing, change daily Dx: Blister left leg with infection S80.822A, L08.9; Lymphedema I89.0. Wound dimensions: 4 x 3 cm Zinc Sulfate 220 mg tab Take 1 tablet by mouth once daily for 14 days. PHYSICAL EXAMINATION: VITAL SIGNS: BP 114/70 Pulse 74 Ht 5' 4 (1.63m) Wt 212 lb 1.6 oz (96.2kg) SpO2 97% BMI 36.39 kg/(m2). Chest: Clear to percussion and auscultation. Trachea is midline. Air entry is equal. Cardiac: Irregularly irregular rhythm. S1 and S2 are normal. PMI is nondisplaced. There is a soft systolic ejection murmur. Carotids are brisk without bruits. JVP is less than 10 cm. Abdomen: Soft and nontender. There are no pulsatile masses or bruits. No liver enlargement. Bowel sounds are active. Extremities: 3 plus pitting edema with lymphedema. There is no active weeping at this time. Pulses are intact and symmetrical. Recent labs were reviewed. Renal function has improved. She has not had labs done since hospital discharge. Recent EKG shows atrial fibrillation with controlled ventricular response. Echocardiogram was done while she was hospitalized in [place]. Her pulmonary hypertension had improved slightly. There is only moderate tricuspid insufficiency. Electronically Signed: Corey Mckeon MD April 14, 2018 5:37 PM CC: Mani Newman MD Referring Provider: COREY MCKEON [[id number]] Allergies As of Date: 04/14/2018 (No Known Allergies) Date Reviewed: 04/14/2018 Reviewed by: Shweta Sterling - Fully Assessed Reason for Visit: Follow Up [171] Primary Visit Diagnosis:ASHD (arteriosclerotic heart disease) [I25.10] Other Visit Diagnoses:Congestive heart failure, unspecified HF chronicity, unspecified heart failure type (HCC) [I50.9] Heart failure with preserved ejection fraction (HCC) [I50.30] Lymphedema of both lower extremities [I89.0] Order(s):BASIC METABOLIC PNL [SQBMP] Order #: [id number] FUTURE spironolactone (ALDACTONE) 25 mg tabletTake 2 tablets by mouth twice daily.Disp: 60 tabletRfl: 5 metOLAzone (ZAROXOLYN) 2.5 mg tabletTake 2 tablets by mouth twice daily.Disp: Rfl: Prescriptions as of 04/14/2018 Sig: VITAMIN D2 ORAL Take by mouth. SPIRONOLACTONE 25 MG TABLET Take 2 tablets by mouth twice* METOLAZONE 2.5 MG TABLET Take 2 tablets by mouth twice* METOPROLOL TARTRATE 25 MG TAB* Take 0.5 tablets by mouth twi* LISINOPRIL 2.5 MG TABLET Take 1 tablet by mouth every * OMEPRAZOLE 20 MG CAPSULE,LUIS MIGUEL* Take 1 capsule by mouth once * DOCUSATE SODIUM 100 MG CAPSULE Take 1 capsule by mouth once * FUROSEMIDE 40 MG TABLET Take 2 tablets by mouth twice* SODIUM HYPOCHLORITE 0.125 % S* Dakin's moistened gauze packi* WARFARIN 3 MG TABLET Take 1 tablet by mouth daily * Patient taking differently: Take 3 mg by mouth once daily* GABAPENTIN 300 MG CAPSULE Take 1 capsule by mouth twice* VITAMIN C ORAL Take 1 tablet by mouth twice * SILVER SULFADIAZINE 1 % TOPIC* Apply to leg wounds as direct* ACETAMINOPHEN 500 MG TABLET Take 1,000 mg by mouth every * ASPIRIN 81 MG TABLET,DELAYED * Take 81 mg by mouth every jean* MULTIVITAMIN-IRON 9 MG-FOLIC * Take 1 tablet by mouth once d* LEVOTHYROXINE 100 MCG TABLET Take 1 tablet by mouth once d* COMPOUNDED PRESCRIPTION Calcium Alginate 4x4 Dressing* ZINC SULFATE 220 MG TABLET Take 1 tablet by mouth once d* Problem List As Of Date 04/14/2018 Noted Resolved Gastroesophageal reflux disease without esophag*INVALID FOR* Chronic atrial fibrillation (HCC) [I48.2] INVALID FOR* Priority: B Pure hypercholesterolemia [E78.00] Hypertension [I10] Priority: D Acquired hypothyroidism [E03.9] Priority: F CAD (coronary artery disease) [I25.10] More... 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 More... More... Respiratory failure with hypoxia (HCC) [J96.91] INVALID FOR* Priority: Severe Heart failure with preserved ejection fraction *INVALID FOR* Priority: A More... Requires continuous at home supplemental oxygen*INVALID FOR*01/20/2018 More... Adjustment disorder with depressed mood [F43.21]INVALID FOR* Constipation [K59.00] INVALID FOR* Leg ulcer, right, with fat layer exposed (HCC) *INVALID FOR* Venous stasis ulcer of right lower leg with melissa*INVALID FOR* Prescriptions ordered this encounter Disp Refills Start End SPIRONOLACTONE 25 MG TABLET 60 t* 5 04/14/2018 Class: Med Update Route: ORAL Sig: Take 2 tablets by mouth twice daily. METOLAZONE 2.5 MG TABLET 04/14/2018 Class: Med Update Route: ORAL Sig: Take 2 tablets by mouth twice daily. Medications Discontinued During This Encounter spironolactone (ALDACTONE) 25 mg tab* 60 t* 5 03/06/2018 04/14/2018 Route: ORAL Sig: Take 1 tablet by mouth twice daily. Disc: Reason for discontinue is not on file. metOLAzone (ZAROXOLYN) 2.5 mg tablet 60 t* 11 02/10/2018 04/14/2018 Route: ORAL Sig: Take 2 tablets by mouth once daily. Disc: Reason for discontinue is not on file. Encounter Status:Closed by COREY MCKEON MD on 04/14/18 PROGRESS Observed: 04/11/2018 Status: COMPLETED Source: [facility] 2:19 PM [facility] REPOSITORY HNO ID: [id number] Author: Chintan Dempsey DPM Service: (none) Author Type: Physician Type: Progress Notes Filed: 04/11/2018 2:20 PM Note Text: Problem list reviewed. CHIEF COMPLAINT: POV #1-Right ID SX 03/22/18 ADM 03-17-18 [facility] Venous stasis ulcer of right lower leg with edema HISTORY OF PRESENT ILLNESS: Here for check of the right leg had ID done on 03/22 in [place] lateral was 10*5 medial was 5*3 at that time post Id and ravindra is at [facility] here for wound check having wounds taken care of CURRENT MEDICATIONS: Warfarin Sodium Oral Tablet 1 MG (01/02/2018) Vitamin D (Ergocalciferol) Oral Capsule 96907 UNIT (12/24/2017) Spironolactone Oral Tablet 25 MG (11/30/2017) Omeprazole Oral Capsule Delayed Release 20 MG (11/30/2017) MetOLazone Oral Tablet 2.5 MG (02/10/2018) Gabapentin Oral Capsule 300 MG (02/08/2018) Levothyroxine Sodium Oral Tablet 100 MCG (02/05/2018) Furosemide Oral Tablet 40 MG (01/30/2018) Lisinopril Oral Tablet 2.5 MG (01/02/2018) Metoprolol Tartrate Oral Tablet 25 MG (12/24/2017) PAST MEDICAL HISTORY: Podiatry History remarkable for Leg or Foot Ulcers. The patient has a past medical history of Arthritis, Depression, Hypertension, Thyroid Disorder. sleep apnea acid reflux COPD SURGICAL HISTORY: gastric bypass b/l knee replacement tibia repaired hernia coronary stents HOSPITALIZATIONS: various SOCIAL HISTORY: Smoking Status: Never smoker; Last Reviewed: 02/13/2018; Second hand smoke exposure Alcohol use: non-drinker No drug use Social History Reviewed (02/13/2018 8:03:43 AM EST) FAMILY HISTORY: There is a family history of Denial of any knowledge of significant family history. Denial of any knowledge of significant family history, Denial of any knowledge of significant family history Family History Reviewed (02/13/2018 8:03:44 AM EST) REVIEW OF SYSTEMS: Cardiovascular: Admits to calf claudication, edema of feet or legs, cold hands or feet. Gastrointestinal: Admits to recurrent acid reflux. Neurologic Admits to muscle weakness, poor balance, shooting pains in the toes or feet. Psychologic: Admits to depression. Review of systems otherwise negative PHYSICAL EXAMINATION: Vascular Exam: BL Foot DP / PT pulses +2/4 CFT less than 3 seconds to digits, skin temp warm to warm from proximal to distal BL Foot Measurements: Measurements: Right Calf: 54.5?cm Right Ankle: ?32.5?cm Left Calf: ?39.5?cm Left Ankle: ?31.3?cm Dermatologic Exam: #1 Right lateral distal leg:?noted with heavy draingte with greensish drainage with 80 fibrotic tissue pre and post 100 with wound noted post 7x9x.8cm deep #2 Right medial distal leg:?? noted 4.5x4x.2cm and post noted .3cm with heavy drainage fibrotic base no pus, no malodor erythema round leg Neurologic Exam: Comments/Other Findings: Vibratory sensations intact BL, Protective sensations intact BL tested with 5.07 monofilament at all 10 sites bl foot , vibratory sensations intact BL , and light, sharp, and temperature sensations intact bl after testing Muscle Testing of the Extensors, Flexors, Evertors (peroneals) , and Invertors ( posterior tibialis) BL leg shows 5/5 testing and normal strength noted. Babinski Test is normal BL foot Orthopedic Exam: Additional Orthopedic Findings: edema noted bl legs DIAGNOSIS: Left foot pain Edema of right foot Venous stasis ulcer of right lower extremity Ulcer of right lower extremity with fat layer exposed Right foot pain Peripheral vascular disease Cellulitis of right lower extremity Edema of left foot Lymphedema of right lower extremity PLAN AND TREATMENT: Foot and Ankle and Lower extremity Exam and Evaluation carried out with a treatment plan reviewed with the patient and findings discussed with patient including alternatives, benefits, complications and risks. cont the sure press recommended dakins wet to dry dry max abd kerlix then surepress from toes to knee did tis today for the right for the left abd to heel pad up and then surepress up the lg needs to restart her lymphedema pumps, she is alone but I told her even if she does once a day would be tremendous restart her pmps to treat lyphedema needs to finish doxy follow up with ID debrided lateral wound to fascia the medial wound is to the sub q on the Right leg Excisional debridement carried out of the wound with sharp debridement past the dermis into subcutaneous level with use of curette and 15 scalpel blade and we then flushed out the wound with wound wash sterile saline. It is noted that all wounds sizes were measured in CM (centimeters), right leg medial ankle woun lateral right leg wound debrided with Excisional debridement carried out of the wound with sharp debridement past the dermis into fascia level with use of curette and 15 scalpel blade and we then flushed out the wound with wound wash sterile saline. It is noted that all wounds sizes were measured in CM (centimeters) possible mist therapy next step instructions for [facility] givedn new ordres follow up can return in 2-3 weeks sqcm debrided today is 85 sqcm Left foot pain 729.5 M79.672 AND Edema of right foot 782.3 R60.0 AND Venous stasis ulcer of right lower extremity 454.0 I83.019 AND Ulcer of right lower extremity with fat layer exposed 707.10 L97.912 AND Right foot pain 729.5 M79.671 AND Peripheral vascular disease 443.9 I73.9 AND Cellulitis of right lower extremity 682.6 L03.115 AND Edema of left foot 782.3 R60.0 AND Lymphedema of right lower extremity 457.1 I89.0 CNOV Observed: 04/11/2018 Status: COMPLETED Source: [facility] 11:00 AM [facility] OTHER CAMPUS REPOSITORY Office Visit ([facility]) ROSA BELTRAN ([id number]) 1935 F Date Time Provider Department 04/11/18 11:00 AM [facility] During your visit today, we recorded the following information about you: Temperature Pulse Respiration Blood pressure 97.7 degrees 73/minute 17/minute 124/78 Peter Jason MA, TORY 04/11/2018 11:52 AM Signed Nursing Note Dx: Venous insufficiency with ulcer with secondary lymphedema See provider note for wound description and measurements Patient has removed compression wraps yesterday at home. Dressing removed with dakins Saline 0.9% solution applied to all wounds In the presence and direction of the provider wound care as written below: Photos taken 1. Right lateral distal leg: L: 7.0 cm x W: 9.5 cm x D: 0.8cm Fasia debridement. Wounds washed with dakins solution 0.125%. Pat dry. Dakins moistened gauze 0.125% was packed in to the wound bed. Equal parts of hydrocortisone cream 1% and zinc to all excoriated areas. Site covered with dry max, abd pads and kerlix wrap. Tape to secure. Surepress wrap applied from behind the toes to 1 below the knee. 2. Right medial distal leg: L: 4.5cm x W: 4.0cm x D: 0.2cm SQ debridement. Wounds washed with dakins solution 0.125%. Pat dry. Dakins moistened gauze 0.125% was packed in to the wound bed. Equal parts of hydrocortisone cream 1% and zinc to all excoriated areas. Site covered with dry max, abd pads and kerlix wrap. Tape to secure. Surepress wrap applied from behind the toes to 1 below the knee. Surepress applied bilaterally PLAN: Follow up with [facility] in 1 week Elevate your legs above your heart to decrease your swelling New wound care EDUCATION PER PROVIDER: The patient/family was instructed how to wash the wound(s) with dial soap, rinsing with water, AND patting dry. Visual demonstration on how to apply the dressing. Signs AND symptoms of infection were reviewed: Increased redness, swelling, pain, green, yellow drainage, fever or chills all would need to be evaluated by a Physician. Patient received typed homegoing wound care instructions and has expressed intent to comply. Peter Jason MA, MA 04/11/2018 11:37 AM Addendum WOUND CARE INSTRUCTIONS Wound location: Right lower leg multiple wounds - Venous insufficiency bilateral lower legs Please keep dressing clean and dry 1. Wash your hands with soap and water before and after wound care. 2. Gather all supplies needed. 3. Wash wound with Dial soap and water. Pat dry. Moisturize intact skin with vitamin AANDD ointment Apply equal parts of zinc oxide and hydrocortisone cream 1% to excoriated areas 4. Apply dakins 0.125% moistened gauze to the wound base avoiding intact skin 5. Cover with Dry Max and ABD pads and kerlix wrap. Tape to secure 6. Apply Surepress wrap from behind the toes to 1 below the knee 7. Change your dressing DAILY or when wet Left lower leg: Moisturize daily with vitamin AANDD ointment Change DAILY Apply Surepress wrap from behind the toes to 1 below the knee To give your wound the best chance to heal: - Eat three balanced meals daily focusing on the protein - Control swelling by elevating the extremity above your heart - exercise the extremity - Complete your wound care instructions - Vitamin C 500 mg twice daily - Multiple Vitamin Daily - Drink a protein shake daily - continue home care Report any of the following changes to the Wound Center at [phone] or go to the Emergency Department: ? Fever or chills ? Increased drainage ? Green or yellow drainage ? Foul odor ? Increased pain ? Hardness around the wound ? Redness, warmth or swelling of the surrounding tissue ? Color change to the wound PLAN: Follow up with [facility] in 2 weeks Use Lymphedema pumps DAILY Chintan Dempsey DPM/csm Chintan Dempsey DPM, YONNY 04/11/2018 2:20 PM Signed Problem list reviewed. CHIEF COMPLAINT: POV #1-Right ID SX 03/22/18 ADM 03-17-18 [facility] Venous stasis ulcer of right lower leg with edema HISTORY OF PRESENT ILLNESS: Here for check of the right leg had ID done on 03/22 in [place] lateral was 10*5 medial was 5*3 at that time post Id and ravindra is at SNF here for wound check having wounds taken care of CURRENT MEDICATIONS: Warfarin Sodium Oral Tablet 1 MG (01/02/2018) Vitamin D (Ergocalciferol) Oral Capsule 54269 UNIT (12/24/2017) Spironolactone Oral Tablet 25 MG (11/30/2017) Omeprazole Oral Capsule Delayed Release 20 MG (11/30/2017) MetOLazone Oral Tablet 2.5 MG (02/10/2018) Gabapentin Oral Capsule 300 MG (02/08/2018) Levothyroxine Sodium Oral Tablet 100 MCG (02/05/2018) Furosemide Oral Tablet 40 MG (01/30/2018) Lisinopril Oral Tablet 2.5 MG (01/02/2018) Metoprolol Tartrate Oral Tablet 25 MG (12/24/2017) PAST MEDICAL HISTORY: Podiatry History remarkable for Leg or Foot Ulcers. The patient has a past medical history of Arthritis, Depression, Hypertension, Thyroid Disorder. sleep apnea acid reflux COPD SURGICAL HISTORY: gastric bypass b/l knee replacement tibia repaired hernia coronary stents HOSPITALIZATIONS: various SOCIAL HISTORY: Smoking Status: Never smoker; Last Reviewed: 02/13/2018; Second hand smoke exposure Alcohol use: non-drinker No drug use Social History Reviewed (02/13/2018 8:03:43 AM EST) FAMILY HISTORY: There is a family history of Denial of any knowledge of significant family history. Denial of any knowledge of significant family history, Denial of any knowledge of significant family history Family History Reviewed (02/13/2018 8:03:44 AM EST) REVIEW OF SYSTEMS: Cardiovascular: Admits to calf claudication, edema of feet or legs, cold hands or feet. Gastrointestinal: Admits to recurrent acid reflux. Neurologic Admits to muscle weakness, poor balance, shooting pains in the toes or feet. Psychologic: Admits to depression. Review of systems otherwise negative PHYSICAL EXAMINATION: Vascular Exam: BL Foot DP / PT pulses +2/4 CFT less than 3 seconds to digits, skin temp warm to warm from proximal to distal BL Foot Measurements: Measurements: Right Calf: 54.5?cm Right Ankle: ?32.5?cm Left Calf: ?39.5?cm Left Ankle: ?31.3?cm Dermatologic Exam: #1 Right lateral distal leg:?noted with heavy draingte with greensish drainage with 80 fibrotic tissue pre and post 100 with wound noted post 7x9x.8cm deep #2 Right medial distal leg:?? noted 4.5x4x.2cm and post noted .3cm with heavy drainage fibrotic base no pus, no malodor erythema round leg Neurologic Exam: Comments/Other Findings: Vibratory sensations intact BL, Protective sensations intact BL tested with 5.07 monofilament at all 10 sites bl foot , vibratory sensations intact BL , and light, sharp, and temperature sensations intact bl after testing Muscle Testing of the Extensors, Flexors, Evertors (peroneals) , and Invertors ( posterior tibialis) BL leg shows 5/5 testing and normal strength noted. Babinski Test is normal BL foot Orthopedic Exam: Additional Orthopedic Findings: edema noted bl legs DIAGNOSIS: Left foot pain Edema of right foot Venous stasis ulcer of right lower extremity Ulcer of right lower extremity with fat layer exposed Right foot pain Peripheral vascular disease Cellulitis of right lower extremity Edema of left foot Lymphedema of right lower extremity PLAN AND TREATMENT: Foot and Ankle and Lower extremity Exam and Evaluation carried out with a treatment plan reviewed with the patient and findings discussed with patient including alternatives, benefits, complications and risks. cont the sure press recommended dakins wet to dry dry max abd kerlix then surepress from toes to knee did tis today for the right for the left abd to heel pad up and then surepress up the lg needs to restart her lymphedema pumps, she is alone but I told her even if she does once a day would be tremendous restart her pmps to treat lyphedema needs to finish doxy follow up with ID debrided lateral wound to fascia the medial wound is to the sub q on the Right leg Excisional debridement carried out of the wound with sharp debridement past the dermis into subcutaneous level with use of curette and 15 scalpel blade and we then flushed out the wound with wound wash sterile saline. It is noted that all wounds sizes were measured in CM (centimeters), right leg medial ankle woun lateral right leg wound debrided with Excisional debridement carried out of the wound with sharp debridement past the dermis into fascia level with use of curette and 15 scalpel blade and we then flushed out the wound with wound wash sterile saline. It is noted that all wounds sizes were measured in CM (centimeters) possible mist therapy next step instructions for [facility] givedn new ordres follow up can return in 2-3 weeks sqcm debrided today is 85 sqcm Left foot pain 729.5 M79.672 AND Edema of right foot 782.3 R60.0 AND Venous stasis ulcer of right lower extremity 454.0 I83.019 AND Ulcer of right lower extremity with fat layer exposed 707.10 L97.912 AND Right foot pain 729.5 M79.671 AND Peripheral vascular disease 443.9 I73.9 AND Cellulitis of right lower extremity 682.6 L03.115 AND Edema of left foot 782.3 R60.0 AND Lymphedema of right lower extremity 457.1 I89.0 Referring Provider: LUIS SIMONS ([facility]) [[id number]] Allergies As of Date: 04/11/2018 (No Known Allergies) Date Reviewed: 03/24/2018 Reviewed by: Guillermina (Rn) ELENA Mora - Fully Assessed Reason for Visit: Wound Check [133] Cmt: right lower leg Primary Visit Diagnosis:Venous stasis ulcer of right lower leg with edema of right lower leg (HCC) [I83.019, I83.891, L97.919, R60.9] Prescriptions as of 04/11/2018 Sig: METOPROLOL TARTRATE 25 MG TAB* Take 0.5 tablets by mouth twi* LISINOPRIL 2.5 MG TABLET Take 1 tablet by mouth every * OMEPRAZOLE 20 MG CAPSULE,LUIS MIGUEL* Take 1 capsule by mouth once * DOCUSATE SODIUM 100 MG CAPSULE Take 1 capsule by mouth once * FUROSEMIDE 40 MG TABLET Take 2 tablets by mouth twice* SPIRONOLACTONE 25 MG TABLET Take 1 tablet by mouth twice * METOLAZONE 2.5 MG TABLET Take 2 tablets by mouth once * SODIUM HYPOCHLORITE 0.125 % S* Dakin's moistened gauze packi* WARFARIN 3 MG TABLET Take 1 tablet by mouth daily * Patient taking differently: Take 3 mg by mouth once daily* GABAPENTIN 300 MG CAPSULE Take 1 capsule by mouth twice* VITAMIN C ORAL Take 1 tablet by mouth twice * SILVER SULFADIAZINE 1 % TOPIC* Apply to leg wounds as direct* ZINC SULFATE 220 MG TABLET Take 1 tablet by mouth once d* ACETAMINOPHEN 500 MG TABLET Take 1,000 mg by mouth every * ASPIRIN 81 MG TABLET,DELAYED * Take 81 mg by mouth every jean* MULTIVITAMIN-IRON 9 MG-FOLIC * Take 1 tablet by mouth once d* LEVOTHYROXINE 100 MCG TABLET Take 1 tablet by mouth once d* COMPOUNDED PRESCRIPTION Calcium Alginate 4x4 Dressing* Problem List As Of Date 04/11/2018 Noted Resolved Gastroesophageal reflux disease without esophag*INVALID FOR* Chronic atrial fibrillation (HCC) [I48.2] INVALID FOR* Priority: B Pure hypercholesterolemia [E78.00] Hypertension [I10] Priority: D Acquired hypothyroidism [E03.9] Priority: F CAD (coronary artery disease) [I25.10] More... 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 More... More... Respiratory failure with hypoxia (HCC) [J96.91] INVALID FOR* Priority: Severe Heart failure with preserved ejection fraction *INVALID FOR* Priority: A More... Requires continuous at home supplemental oxygen*INVALID FOR*01/20/2018 More... Adjustment disorder with depressed mood [F43.21]INVALID FOR* Constipation [K59.00] INVALID FOR* Leg ulcer, right, with fat layer exposed (HCC) *INVALID FOR* Venous stasis ulcer of right lower leg with melissa*INVALID FOR* Other instructions from your clinician: WOUND CARE INSTRUCTIONS Wound location: Right lower leg multiple wounds - Venous insufficiency bilateral lower legs Please keep dressing clean and dry 1. Wash your hands with soap and water before and after wound care. 2. Gather all supplies needed. 3. Wash wound with Dial soap and water. Pat dry. Moisturize intact skin with vitamin AANDD ointment Apply equal parts of zinc oxide and hydrocortisone cream 1% to excoriated areas 4. Apply dakins 0.125% moistened gauze to the wound base avoiding intact skin 5. Cover with Dry Max and ABD pads and kerlix wrap. Tape to secure 6. Apply Surepress wrap from behind the toes to 1 below the knee 7. Change your dressing DAILY or when wet Left lower leg: Moisturize daily with vitamin AANDD ointment Change DAILY Apply Surepress wrap from behind the toes to 1 below the knee To give your wound the best chance to heal: - Eat three balanced meals daily focusing on the protein - Control swelling by elevating the extremity above your heart - exercise the extremity - Complete your wound care instructions - Vitamin C 500 mg twice daily - Multiple Vitamin Daily - Drink a protein shake daily - continue home care Report any of the following changes to the Wound Center at [phone] or go to the Emergency Department: ? Fever or chills ? Increased drainage ? Green or yellow drainage ? Foul odor ? Increased pain ? Hardness around the wound ? Redness, warmth or swelling of the surrounding tissue ? Color change to the wound PLAN: Follow up with [facility] in 2 weeks Use Lymphedema pumps DAILY Chintan Dempsey DPM/csm Visit Notes: >> Peter (Tory) TORY Jason Apr 11, 2018 11:23 AM Status: Signed Nursing Note Dx: Venous insufficiency with ulcer with secondary lymphedema See provider note for wound description and measurements Patient has removed compression wraps yesterday at home. Dressing removed with dakins Saline 0.9% solution applied to all wounds In the presence and direction of the provider wound care as written below: Photos taken 1. Right lateral distal leg: L: 7.0 cm x W: 9.5 cm x D: 0.8cm Fasia debridement. Wounds washed with dakins solution 0.125%. Pat dry. Dakins moistened gauze 0.125% was packed in to the wound bed. Equal parts of hydrocortisone cream 1% and zinc to all excoriated areas. Site covered with dry max, abd pads and kerlix wrap. Tape to secure. Surepress wrap applied from behind the toes to 1 below the knee. 2. Right medial distal leg: L: 4.5cm x W: 4.0cm x D: 0.2cm SQ debridement. Wounds washed with dakins solution 0.125%. Pat dry. Dakins moistened gauze 0.125% was packed in to the wound bed. Equal parts of hydrocortisone cream 1% and zinc to all excoriated areas. Site covered with dry max, abd pads and kerlix wrap. Tape to secure. Surepress wrap applied from behind the toes to 1 below the knee. Surepress applied bilaterally PLAN: Follow up with [facility] in 1 week Elevate your legs above your heart to decrease your swelling New wound care EDUCATION PER PROVIDER: The patient/family was instructed how to wash the wound(s) with dial soap, rinsing with water, AND patting dry. Visual demonstration on how to apply the dressing. Signs AND symptoms of infection were reviewed: Increased redness, swelling, pain, green, yellow drainage, fever or chills all would need to be evaluated by a Physician. Patient received typed homegoing wound care instructions and has expressed intent to comply. Encounter Status:Closed by CHINTAN DEMPSEY DPM on 04/11/18 ANA Observed: 04/06/2018 Status: COMPLETED Source: [place] 12:00 AM [facility] REPOSITORY Patient Outreach ([facility]) ROSA BELTRAN ([id number]) 1935 F Date Time Provider Department 04/06/18 MARITZA RUSSELLWS During your visit today, we recorded the following information about you: Allergies As of Date: 04/06/2018 (No Known Allergies) Date Reviewed: 03/24/2018 Reviewed by: Guillermina (Elena) ELENA Mora - Fully Assessed Reason for Visit: Sap Consultant Chronic Care [[id number]] Prescriptions as of 04/06/2018 Sig: OMEPRAZOLE 20 MG CAPSULE,LUIS MIGUEL* Take 1 capsule by mouth once * X METOPROLOL TARTRATE 25 MG TAB* Take 0.5 tablets by mouth twi* X LISINOPRIL 2.5 MG TABLET Take 1 tablet by mouth every * X DOCUSATE SODIUM 100 MG CAPSULE Take 1 capsule by mouth once * X FUROSEMIDE 40 MG TABLET Take 2 tablets by mouth twice* X SPIRONOLACTONE 25 MG TABLET Take 1 tablet by mouth twice * WARFARIN 3 MG TABLET Take 1 tablet by mouth daily * Patient taking differently: Take 3 mg by mouth once daily* X METOLAZONE 2.5 MG TABLET Take 2 tablets by mouth once * X SODIUM HYPOCHLORITE 0.125 % S* Dakin's moistened gauze packi* GABAPENTIN 300 MG CAPSULE Take 1 capsule by mouth twice* X VITAMIN C ORAL Take 1 tablet by mouth twice * X SILVER SULFADIAZINE 1 % TOPIC* Apply to leg wounds as direct* X ZINC SULFATE 220 MG TABLET Take 1 tablet by mouth once d* ASPIRIN 81 MG TABLET,DELAYED * Take 81 mg by mouth every jean* X ACETAMINOPHEN 500 MG TABLET Take 1,000 mg by mouth every * X MULTIVITAMIN-IRON 9 MG-FOLIC * Take 1 tablet by mouth once d* LEVOTHYROXINE 100 MCG TABLET Take 1 tablet by mouth once d* X COMPOUNDED PRESCRIPTION Calcium Alginate 4x4 Dressing* Problem List As Of Date 04/06/2018 Noted Resolved Gastroesophageal reflux disease without esophag*INVALID FOR* Chronic atrial fibrillation (HCC) [I48.2] INVALID FOR* Priority: B More... Pure hypercholesterolemia [E78.00] Hypertension [I10] Priority: D Acquired hypothyroidism [E03.9] Priority: F CAD (coronary artery disease) [I25.10] More... 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 More... More... Respiratory failure with hypoxia (HCC) [J96.91] INVALID FOR* Priority: Severe Heart failure with preserved ejection fraction *INVALID FOR* Priority: A More... Requires continuous at home supplemental oxygen*INVALID FOR*01/20/2018 More... 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 Patient to use [facility] Bedside Delivery - YES 2. If fax, patient would like us to fax prescriptions to Pharmacy of choice a. Pharmacy: b. Location: c. Phone: 3. Insurance card on file - YES 4. Credit card for payment - YES PHARMACY BEDSIDE DELIVERY SERVICE Patient Name: Rosa Beltran The marked outpatient medications were Filled at: [facility] and delivered to the patient's bedside to pharm p/u Medication List START taking these medications amoxicillin-clavulanic acid 875-125 mg per tablet Commonly known as: AUGMENTIN Take 1 tablet by mouth every 12 hours for 18 doses. X ciprofloxacin HCl 500 mg tablet Commonly known as: CIPRO Take 1 tablet by mouth every 12 hours for 9 doses. X CHANGE how you take these medications warfarin 3 mg tablet Commonly known as: COUMADIN Take 1 tablet by mouth daily as directed. Patient is taking 2mg Tuesday and and 3mg other days. What changed: ? when to take this ? additional instructions CONTINUE taking these medications acetaminophen 500 mg tablet Commonly known as: TYLENOL aspirin, enteric coated 81 mg EC tablet Commonly known as: ASPIRIN, ENTERIC COATED COMPOUNDED PRESCRIPTION Calcium Alginate 4x4 Dressing, change daily Dx: Blister left leg with infection S80.822A, L08.9; Lymphedema I89.0. Wound dimensions: 4 x 3 cm docusate sodium 100 mg capsule Commonly known as: COLACE Take 1 capsule by mouth once daily as needed for Constipation. furosemide 40 mg tablet Commonly known as: LASIX Take 2 tablets by mouth twice daily. gabapentin 300 mg capsule Commonly known as: NEURONTIN Take 1 capsule by mouth twice daily for 180 days. levothyroxine 100 mcg tablet Commonly known as: LEVOXYL Take 1 tablet by mouth once daily. Take on empty stomach. For Thyroid. lisinopril 2.5 mg tablet Commonly known as: ZESTRIL Take 1 tablet by mouth every evening. metOLAzone 2.5 mg tablet Commonly known as: ZAROXOLYN Take 2 tablets by mouth once daily. metoprolol tartrate (short acting) 25 mg tablet Commonly known as: LOPRESSOR Take 0.5 tablets by mouth twice daily. omeprazole 20 mg capsule Commonly known as: PriLOSEC Take 1 capsule by mouth once daily. silver sulfADIAZINE 1 % cream Commonly known as: SILVADENE Apply to leg wounds as directed. sodium hypochlorite 0.125 % Soln Commonly known as: DAKIN'S SOLUTION Dakin's moistened gauze packing every other day to wound for bacterial control. spironolactone 25 mg tablet Commonly known as: ALDACTONE Take 1 tablet by mouth twice daily. therapeutic multivitamin w/ iron 9 mg iron-400 mcg tablet Commonly known as: THERAGRAN-M VITAMIN C ORAL Zinc Sulfate 220 mg Tab Take 1 tablet by mouth once daily for 14 days. You might also be taking other medications not listed above. If you have questions about any of your other medications, talk to the person who prescribed them or your Primary Care Provider. Yamilka Rosa (Appraisal Coordinator) PAGER: [phone] March 24, 2018 2:13 PM CASE MANAGEM Observed: 03/24/2018 Status: COMPLETED Source: [facility] 2:00 PM CLINIC OTHER CAMPUS REPOSITORY O ID: [id number] Author: Maritza ParksRn) ELENA Cadet Service: Case Management Author Type: Registered Nurse Type: Care Mgt Progress Note Filed: 03/24/2018 2:43 PM Note Text: CARE MANAGEMENT DISCHARGE NOTE SERVICE DATE: 03/24/2018 SERVICE TIME: 2:00 PM LOS: 7 days Admission Date: 03/17/2018 DISCHARGE ARRANGEMENT (list agency and phone number) Home care Provider: [facility] CAREGIVER ASSESSMENT: Caregiver is ready, willing and able to meet the patient's needs as recommended by the inter-professional team? Yes Patient's transition needs and plan for meeting these needs: Home th HHC and family assist as needed. Does the patient have an acute stroke diagnosis, or has the patient had a stroke during this admission? No HANDOFF COMMUNICATION: Primary Care Physician: Mani Newman MD Summary of Care to Dr. Newman and [facility] TRANSPORTATION ARRANGEMENTS: Car via family ADDITIONAL CONTACT RESOURCES: N/A Discharge Information Row Name [place] in [place] on 03/22/2018 ED to Hosp-Admission (Current) from 03/17/2018 in [facility] ? [facility] Phone# ? [phone] Start of Care ? 03/24/18 Needs Prior to Discharge: None;Ready for Discharge IM letter given to Rosa Beltran on 03/24/2018. Discharge order written for today to home with home health care. Patient continues to decline SNF as well as home PT and OT. Patient indicates to RN CM that she is only agreeable to home care for nursing for wound care. [facility]25[facility]. Patient is agreeable to discharge today and indicates that her [id number] will be transporting home. Patient declines PCP follow-up indicating that she will follow-up with Dr. Dempsey and the wound center. SIGNATURE: Maritza Cadet RN PATIENT NAME: Rosa Beltran DATE: March 24, 2018 TIME: 2:00 PM PAGER/CONTACT #: [phone] CONSULT PROG Observed: 03/24/2018 Status: COMPLETED Source: [facility] 1:09 PM CLINIC OTHER CAMPUS REPOSITORY O ID: [id number] Author: Checo Kay MD Service: Infectious Disease Author Type: Physician Type: Consult Progress Note Filed: 03/24/2018 1:12 PM Note Text: INFECTIOUS DISEASE PROGRESS NOTE Patient Name: Rosa Beltran INTERVAL HISTORY: Leg debrided by podiatry. No fevers. R leg cultures w PsAG.ASE. WBC now normal. ROS checked in details. All qs answered. Patient Active Hospital Problem List: Leg ulcer, right, with fat layer exposed (HCC) (03/17/2018) ASSESSMENT: Right leg ulcers Mild surrounding Cellulitis of RLE PAD Prior cx with 02/15 MSSA and Proteus mirabilis COPD CAD Afib RA ? Plan --Continue PO Cipro and augmentin. rx x 9 days more --Watch INR on coumadin and cipro --Check ESR and CRP, 52 and 6 respectively. --wound care MEDICATIONS: reviewed. Current hospital medications: warfarin 10 mg tab(s) (COUMADIN) 10 mg ORAL ONCE - WARFARIN [START ON 03/25/2018] warfarin dose per INR - Call physician daily for dose ORAL DAILY - WARFARIN sodium hypochlorite topical irrigation 0.5% (DAKINS FULL-STRENGTH) TOPICAL DAILY ciprofloxacin HCl 500 mg tab(s) (CIPRO) 500 mg ORAL q 12 H amoxicillin-clavulanic acid 875 mg tab(s) (AUGMENTIN) 875 mg ORAL q 12 H docusate sodium 100 mg cap(s) (COLACE) 100 mg ORAL BID PRN acetaminophen 1,000 mg tab(s) (TYLENOL) 1,000 mg ORAL q 6 H PRN gabapentin 300 mg cap(s) (NEURONTIN) 300 mg ORAL BID therapeutic multivitamin with iron (THERAGRAN-M) 1 tablet ORAL DAILY aspirin, enteric coated 81 mg tab(s) (ASPIRIN, ENTERIC COATED) 81 mg ORAL DAILY pantoprazole DR 20 mg tab(s) (PROTONIX) 20 mg ORAL DAILY levothyroxine 100 mcg tab(s) (SYNTHROID) 100 mcg ORAL DAILY (6 AM) oxyCODONE-acetaminophen 5-325 mg 1 tablet (PERCOCET) 1 tablet ORAL q 8 H PRN perflutren lipid microspheres 1.1 mg/mL 1.3 mL injection (DEFINITY) 1.3 mL INTRAVENOUS DIRECTED PRN PHYSICAL EXAM: Vital signs: BP 110/61 Pulse (!) 58 Temp 36.6 ?C (97.9 ?F) (Oral) Resp 22 Ht 162.6 cm (5' 4) Wt 90.2 kg (198 lb 13.7 oz) SpO2 91% BMI 34.13 kg/m? Temp (24hrs), Av.7 ?C (98.1 ?F), Min:36.4 ?C (97.5 ?F), Max:37.2 ?C (99 ?F) General: alert, oriented, NAD Lungs: bilaterally clear to auscultation Heart: regular rate and rhythm Abdomen: soft, non tender, non distended, BS+ Extremities: R leg wound w dressing and redness receeding No rashes No joint inflammation Neck supple Lines ok No CVAT Labs: Recent Labs 03/23/18 0423 03/22/18 0533 03/21/18 0411 WBC 5.14 5.21 5.63 HB 10.2* 10.3* 10.8* HCT 34.8* 34.5* 35.8* PLT 173 176 171 INR 1.6* 1.9* 2.3* NA 137 138 137 K 5.0 4.7 4.6 CHLOR 98 99 97 CO2 33* 32* 32* BUN 28* 31* 37* CREAT 1.33* 1.18* 1.40* Microbiology data: reviewed Imaging data: reviewed Checo Kay MD [phone] 03/23/2018 9:06 AM ALLIED HEALTH Observed: 03/24/2018 Status: COMPLETED Source: [facility] 1:07 PM CLINIC OTHER CAMPUS REPOSITORY HNO ID: [id number] Author: Svetlana (Rn) Carlos RN Service: Ostomy Author Type: Registered Nurse Type: Allied Health Filed: 03/24/2018 1:22 PM Note Text: Wound Care Consult Team PATIENT NAME: Rosa Beltran is a 82 year old female with the admitting diagnosis of wound infection. ALLERGIES No Known Allergies REASON FOR CONSULT: Patient seen today, change postoperative dressing per MD orders. Right lower lateral leg dressing moderate amount serosanguinous drainage. Wound base clean, measures 8 x 5 x 0.7 cm with irregular margins. No odor. Right medial ankle at old grafting site with small wound proximal edge of graft having clean red base (1.0 x 0.5 x 0.1 cm) and linear wound distal edge of graft measuring 0.5 x 1.7cm, no odor, no erythema. Right lateral foot with ? Open fissure measuring 0.7 x 1.0cm with pink base. Evidence of edema reduction with deep furrowing wrinkles to skin of foot and lower leg. WCCT agrees with Pressure Ulcer documentation by Physician: Not Applicable WCCT agrees with Pressure Ulcer documentation by Nurse: Not Applicable Add Pressure Ulcer Sites: (Site, Stage, Status (POA vs Acquired) 1) 2) 3) 4) Assessment as above Active Pressure Injury 03/17/181703 Entered in Error (Active) Number of days: 6 Pressure Injury 03/17/181705 Ankle - Right Lateral (Active) Stage Injury 3 03/21/2018 10:23 PM Print Developer Automatic Related Pressure Injury No 03/21/2018 10:23 PM Dressing Status Initial Post-Op Dressing Intact 03/23/2018 8:45 AM Frequency of Dressing Change Daily 03/23/2018 8:45 AM Dressing Change Due 03/22/18 03/23/2018 8:45 AM Dressing/Treatment Type ABD;Kerlex Roll;Gauze/ Xeroform 03/21/2018 10:23 PM Drainage Description Serosanguineous 03/20/2018 5:00 PM Drainage Amount Large 03/20/2018 5:00 PM Odor No 03/19/2018 9:50 PM Wound Surface Color Red;[employer];Yellow 03/20/2018 5:00 PM Surrounding Skin Erythematous 03/20/2018 5:00 PM Length in Cm - Weekly 5.4 Cm 03/17/2018 9:00 PM Width in Cm - Weekly 5.2 Cm 03/17/2018 9:00 PM Depth in Cm - Weekly 1.3 Cm 03/17/2018 9:00 PM Number of days: 6 Pressure Injury Ankle - Right Medial (Active) Dressing Status Initial Post-Op Dressing Intact 03/22/2018 9:00 PM Frequency of Dressing Change Daily 03/21/2018 10:23 PM Dressing Change Due 03/22/18 03/21/2018 10:23 PM Dressing/Treatment Type ABD;Gauze/ Xeroform;Kerlex Roll 03/21/2018 10:23 PM Drainage Description Serosanguineous 03/20/2018 5:00 PM Drainage Amount Large 03/20/2018 5:00 PM Odor No 03/19/2018 9:50 PM Wound Surface Color Red;[employer] 03/19/2018 9:50 PM Surrounding Skin Erythematous 03/19/2018 9:50 PM Number of days: Pressure Injury 03/17/18 1711 Heel - Left (Active) Stage Injury 1 03/21/2018 10:23 PM Print Developer Automatic Related Pressure Injury No 03/23/2018 8:45 AM Dressing Status None: Open to Air 03/23/2018 8:45 AM Drainage Description None 03/23/2018 8:45 AM Drainage Amount None 03/23/2018 8:45 AM Odor No 03/23/2018 8:45 AM Wound Surface Color Dark Purple 03/23/2018 8:45 AM Surrounding Skin Intact 03/23/2018 8:45 AM Number of days: 6 Recommendations: Dressing change done to all wounds as order by MD. Anterior ankle and ace padded with ABD and secured with kerlex and ankit wrap. Patient claims dressing feels good when completed. Stressed the need to elevate legs at home when sitting. She claims she does this at night in her lift chair but I think she sits elsewhere near a computer during the day. The daughter even mentioned the need to find a way to elevate her legs during the day so the pillows don't fall off when she gets up. Patient mentioned using a ledge to elevate. Maintain all appropriate Nursing Pressure Ulcer Prevention Interventions as needed per [place] Risk Assessment. My findings and recommendations for wound care will be communicated through the shared Medical record. Wound Care Consult Team recommendations discussed with: Bedside Rn aware assessment complete, dressing changed and family at bedside who will obtain necessary orders from MD, Resident or LIP. Follow Up:No further visits planned by Wound Care Consult Team -Please reconult as needs arise. Units of Service (15 min per unit): 30 min Electronically Signed By: Svetlana Gonzalez RN CWOCN from the Wound Care Consult Team PAGER: DATE: March 24, 2018 TIME: 1:08 PM Thank you for including me in the care of this patient and please feel free to re-consult me if necessary. CNDS Observed: 03/24/2018 Status: COMPLETED Source: [facility] 12:59 PM CLINIC OTHER CAMPUS REPOSITORY HNO ID: [id number] Author: Liza Barry Service: General Internal Medicine Author Type: Physician Type: Discharge Summaries Filed: 03/24/2018 1:01 PM Note Text: DISCHARGE SUMMARY PATIENT NAME: Rosa Beltran ADMISSION DATE: 03/17/2018 DISCHARGE DATE: 03/24/2018 ATTENDING PHYSICIAN: Liza Barry REASON FOR HOSPITALIZATION: DIAGNOSIS: Active Problems: Leg ulcer, right, with fat layer exposed (HCC) Resolved Problems: * No resolved hospital problems. * OPERATIONS DURING HOSPITALIZATION: None PROCEDURES DURING HOSPITALIZATION: IANDD of right foot HOSPITAL COURSE: Patient was admitted with RLE cellulitis. She was started on broad spectrum abx. There was no imaging evidence of OM. She was seen by Infectious disease and podiatry, underwent IANDD on 03/23 and will be discharged home with oral abx and instructions for dressing changes. LABS AND PROCEDURES PENDING AT DISCHARGE: No pending results. CONSULTING TEAMS DURING HOSPITALIZATION: Infectious Disease: Dr Kay Surgery : Dr Dempsey PATIENT CONDITION AT DISCHARGE: Good DISCHARGE DISPOSITION: Home with Home Health Care Discharge Physical Exam: VITAL SIGNS: BP 110/61 Pulse (!) 58 Temp 36.6 ?C (97.9 ?F) (Oral) Resp 22 Ht 162.6 cm (5' 4) Wt 90.2 kg (198 lb 13.7 oz) SpO2 91% BMI 34.13 kg/m? GENERAL: Alert, no distress, cooperative SKIN: Skin color, texture, turgor normal. No rashes or lesions. LUNGS: Lungs clear to auscultation, Good diaphragmatic excursion CARDIAC: Normal S1 and S2; no rubs, murmurs, or gallops ABDOMEN: Abdomen soft, non-tender, BS normal, No masses or organomegaly EXTREMITIES: right leg wrapped, right foot flat/everted INFORMATION PROVIDED TO PATIENT: (To pull info documented from the DC Instruct Orderset Complete O/S First): DISCHARGE MEDICATION: Current Discharge Medication List START taking these medications amoxicillin-clavulanic acid (AUGMENTIN) 875 mg Take 875 mg by mouth every 12 hours. Qty: 18 tablet Refills: 0 ciprofloxacin HCl (CIPRO) 500 mg Take 500 mg by mouth every 12 hours. Qty: 9 tablet Refills: 0 CONTINUE these medications which have NOT CHANGED metoprolol tartrate (short acting) (LOPRESSOR) 12.5 mg Take 12.5 mg by mouth twice daily. Qty: 30 tablet Refills: 5 Associated Diagnoses:Heart failure with preserved ejection fraction (HCC) lisinopril 2.5 mg Take 2.5 mg by mouth every evening. Qty: 30 tablet Refills: 5 Associated Diagnoses:Essential hypertension omeprazole (PriLOSEC) 20 mg Take 20 mg by mouth once daily. Qty: 30 capsule Refills: 5 Associated Diagnoses:Gastroesophageal reflux disease without esophagitis docusate sodium (COLACE) 100 mg Take 100 mg by mouth once daily as needed for Constipation. Qty: 30 capsule Refills: 5 Associated Diagnoses:Constipation, unspecified constipation type furosemide (LASIX) 80 mg Take 80 mg by mouth twice daily. Qty: 120 tablet Refills: 5 Associated Diagnoses:Heart failure with preserved ejection fraction (HCC); Lymphedema of both lower extremities spironolactone (ALDACTONE) 25 mg Take 25 mg by mouth twice daily. Qty: 60 tablet Refills: 5 Associated Diagnoses:Heart failure with preserved ejection fraction (HCC); Lymphedema of both lower extremities metOLAzone (ZAROXOLYN) 5 mg Take 5 mg by mouth once daily. Qty: 60 tablet Refills: 11 Associated Diagnoses:Heart failure with preserved ejection fraction (HCC); Lymphedema of both lower extremities sodium hypochlorite (DAKIN'S SOLUTION) 0.125 % soln Dakin's moistened gauze packing every other day to wound for bacterial control. Qty: 473 mL Refills: 2 Associated Diagnoses:Venous stasis ulcer of right lower leg with edema of right lower leg (HCC) warfarin (COUMADIN) 3 mg Take 3 mg by mouth daily as directed. Patient is taking 2mg Tuesday and and 3mg other days. gabapentin (NEURONTIN) 300 mg Take 300 mg by mouth twice daily. Qty: 180 capsule Refills: 1 Associated Diagnoses:Polyneuropathy (HCC) ASCORBIC ACID (VITAMIN C ORAL) 1 tablet Take 1 tablet by mouth twice daily. silver sulfADIAZINE (SILVADENE) 1 % cream Apply to leg wounds as directed. 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 aspirin, enteric coated (ASPIRIN, ENTERIC COATED) 81 mg Take 81 mg by mouth every evening. therapeutic multivitamin w/ iron (THERAGRAN-M) 1 tablet Take 1 tablet by mouth once daily. levothyroxine (SYNTHROID) 100 mcg Take 100 mcg by mouth once daily. Take on empty stomach. For Thyroid. Qty: 30 tablet Refills: 11 Zinc Sulfate 220 mg Take 220 mg by mouth once daily. 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 Wound dimensions: 4 x 3 cm Qty: 14 Each Refills: 0 FUTURE APPOINTMENTS: Follow Up with PCP: Mani Newman MD Discharge Information Row Name [place] on 03/22/2018 ED to Hosp-Admission (Current) from 03/17/2018 in [facility] ? [facility] Phone# ? [phone] Start of Care ? 03/24/18 TIME OF CARE (Use first blank if not applicable): TIME OF CARE: Discharge Management: I personally spent greater than 30 minutes involved in the discharge management of this patient. SIGNATURE: Liza Barry MD PATIENT NAME: Rosa Beltran DATE: March 24, 2018 TIME: 12:59 PM PAGER/CONTACT #: [phone] CBC AND DIFFERENTIAL Collected: 03/24/2018 Status: F Source: [facility] 4:56 AM CLINIC OTHER CAMPUS REPOSITORY TYPE CODE TESTS RESULT OUT OF REFERENCE UNITS RANGE LAB WBC 3.70-11.00 k/uL WBC 4.73 LAB RBC 3.90-5.20 m/uL RBC 3.93 LAB HGB 11.5-15.5 g/dL Low Hemoglobin 10.9 LAB HCT 36.0-46.0 % Hematocrit 36.6 LAB MCV 80.0-100.0 fL MCV 93.1 LAB MCH 26.0-34.0 pG MCH 27.7 LAB MCHC 30.5-36.0 g/dL Low MCHC 29.8 LAB RDWCV 11.5-15.0 % RDW-CV High 16.0 LAB PLTCT 150-400 k/uL Platelet Count 167 LAB MPV 9.0-12.7 fL MPV 10.6 LAB ANEUT % Neut% 53.3 LAB AANEUT 1.45-7.50 k/uL Abs Neut 2.52 LAB ALYMP % Lymph% 29.4 LAB AALYMP 1.00-4.00 k/uL Abs Lymph 1.39 LAB AMONO % [place]% 10.1 LAB AAMONO <0.87 k/uL Abs [place] 0.48 LAB AEOS % Eosin% 6.6 LAB AAEOS <0.46 k/uL Abs Eosin 0.31 LAB ABASO % Baso% 0.6 LAB AABASO <0.11 k/uL Abs Baso 0.03 Performed By: #### CBCDIF, PT, BMP #### [facility] [address] [place] [address] PROTIME Collected: 03/24/2018 Status: F Source: [facility] 4:56 AM CLINIC OTHER CAMPUS REPOSITORY TYPE CODE TESTS RESULT OUT OF RANGE REFERENCE UNITS LAB PSEC 9.7-13.0 sec High PT Sec 17.0 LAB INR 0.9-1.3 High PT INR 1.7 Result Comment: Vitamin K Antagonist (VKA) Therapeutic Range: INR 2 to 3 (Target INR of 2.5) Note: For patients treated with VKA drugs, such as warfarin, the [place] [employer] 2012 Guideline recommends a therapeutic INR range of 2 to 3 (target INR of 2.5). This recommendation includes high-risk patients with antiphospholipid syndrome with previous arterial or venous thromboembolism, current-generation mechanical or bioprosthetic aortic heart valve replacement. Note: Patients with mechanical aortic valve replacement and additional risk factors for thromboembolic events (atrial fibrillation, previous thromboembolism, LV dysfunction, hypercoagulable conditions) or an older generation mechanical AVR (i.e., ball in-Cage) or any mechanical MVR should have a INR therapeutic range of 2.5 to 3.5 (target INR of 3). Shweta GH, et al. Chest 2012, 141:7S-47S Genevieve RA, et al. [facility] 2017, 70: 252-289 Performed By: #### CBCDIF, PT, BMP #### [facility] [address] [facility] [phone] BASIC METABOLIC PANL Collected: 03/24/2018 Status: F Source: [facility] 4:56 AM CLINIC OTHER CAMPUS REPOSITORY TYPE CODE TESTS RESULT OUT OF REFERENCE UNITS RANGE LAB GLU 74-99 mg/dL High Glucose 121 Result Comment: The [place] Diabetes Association (ADA) provides guidance for cutoff values for fasting glucose and random glucose. The ADA defines fasting as no caloric intake for at least 8 hours. Fas ting plasma glucose results between 100 to 125 mg/dL indicate increased risk for diabetes (prediabetes). Fasting plasma glucose results greater than or equal to 126 mg/dL meet the criteria for diagnosis of diabetes. In the absence of unequivocal hyperglycemia, results should be confirmed by repeat testing. In a patient with classic symptoms of hyperglycemia or hyperglycemic crisis, random plasma glucose results greater than or equal to 200 mg/dL meet the criteria for diagnosis of diabetes. Reference: Standards of Medical Care in Diabetes 2016, [place] [employer] Association. Diabetes Care. 2016.39(Suppl 1). LAB BUN 7-21 mg/dL BUN High 27 LAB CRET 0.58-0.96 mg/dL Creatinine High 1.07 LAB NA 136-144 mmol/L Sodium 138 LAB K 3.7-5.1 mmol/L Potassium 4.7 LAB CL 97-105 mmol/L Chloride 98 LAB CO2 22-30 mmol/L CO2 High 34 LAB AGAP 9-18 mmol/L Low Anion Gap 6 LAB CA 8.5-10.2 mg/dL Calcium, Total 8.8 LAB GFRAA eGFR- Amer. 60 LAB GFRNAA . eGFR-All Other Races 49 Result Comment: eGFR (Estimated GFR) Units of measure: mL/min/1.73 meters squared eGFR is derived from the reexpressed MDRD Study equation using the following parameters: serum creatinine, age, gender and race. The creatinine assay has been calibrated to be traceable to IDMS. An eGFR <60 mL/min/1.73m2 for >3 months is consistent with chronic kidney disease. Refer to KDOQI guidelines for clinical interpretation. In patients with unstable renal function, e.g. those with acute kidney injury, the eGFR may not accurately reflect actual GFR. Performed By: #### CBCDIF, PT, BMP #### [facility] [address] [facility] [phone] PLAN OF CARE Observed: 03/23/2018 Status: COMPLETED Source: [facility] 2:40 PM CLINIC OTHER CAMPUS REPOSITORY HNO ID: [id number] Author: Maritza (Rn) Helio RN Service: Case Management Author Type: Registered Nurse Type: Plan of Care Filed: 03/23/2018 2:42 PM Note Text: MULTIDISCIPLINARY ROUNDS SERVICE DATE: 03/23/2018 ADMISSION DATE: 03/17/2018 SERVICE TIME: 2:40 PM ANTICIPATED D/C DATE: 03/24/2018 Problem List: ACTIVE PROBLEM LIST Gastroesophageal Reflux Disease Without Esophagitis Chronic Atrial Fibrillation (Hcc) Pure Hypercholesterolemia Hypertension Acquired Hypothyroidism Cad (Coronary Artery Disease) Primary Osteoarthritis Involving Multiple Joints Lymphedema of Both Lower Extremities Mouth Dryness Muscular Weakness Dorsalgia Stented Coronary Artery Gastric Bypass Status for Obesity Bilateral Leg Ulcer (Hcc) Polyneuropathy (Hcc) Cecal Ulcer Respiratory Failure With Hypoxia (Hcc) 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 Barry Needs Discussed on Rounds: Discharge Needs Mobility Plan of Care Anticipated Discharge Disposition: Home with Home Health Care Last Vitals: BP 124/66 Pulse 58 Temp (Src) 98.2 (Oral) Resp 18 Ht 5' 4 (1.63m) Wt 198 lb 13.7 oz (90.2kg) SpO2 97% BMI 34.12 kg/(m2). EMR reviewed. Anticipate discharge tomorrow with [facility] for HHC. Patient is refusing SNF. Nursing: Cardiac Intervention(s) Plan: Monitor and Assess Vital Signs and IANDO Report Significant Changes to LIP Cardiac Goals/Outcomes: Patient Optimal Cardiac Function Evidence by: Vital Signs Stable, Control Chest Pain, Adequate Oxygenation, Cardiac Goal Target Achievement Date: 03/25/18 Elimination Bladder/Bowel Intervention(s) Plan: Monitor Fluids and Electrolytes Elimination Bladder/Bowel Goals/Outcomes: Maintain Skin Integrity Elimination Bladder/Bowel Goal Target Achievement Date: 03/25/18Mobility Intervention(s) Plan: Pain Management Mobility Patient/Family Goals: Patient Attained Highest Level of Functional of Mobility Mobility Goal Target Achievement Date: 03/25/18 Pain Intervention(s) Plan: Pain Assessment, Management, Reassessment Per Scoring Tool Pain Goals/Outcomes: Decrease in Pain Level per Scoring Tool Pain Goal Target Achievement Date: 03/25/18 Respiratory Alteration Intervention(s) Plan: Assess and Monitor Respiratory Status Respiratory Alteration Goals/Outcomes: Decrease of Respiratory Distress Respiratory Goal Target Achievement Date: 03/25/18 Safety Intervention(s) Plan: Ensure Safe Positioning Safety Goals/Outcomes: Maintain Patient Safety Safety Goal Target Achievement Date: 03/25/18kin Intervention(s) Plan: Assess and Document Skin Condition per Protocol Skin Goals/Outcomes: Patient's Skin Integrity Maintained or Improved Skin Goal Target Achievement Date: 03/25/18 DOCUMENTED BY: Maritza Cadet RN PATIENT NAME: Rosa Beltran DATE: March 23, 2018 TIME: 2:40 PM CSN: [id number] PROGRESS Observed: 03/23/2018 Status: COMPLETED Source: [facility] 2:35 PM CLINIC OTHER CAMPUS REPOSITORY O ID: [id number] Author: Liza Stevenson) Asha Service: General Internal Medicine Author Type: Physician Type: Progress Notes Filed: 03/23/2018 2:36 PM Note Text: DEPARTMENT OF HOSPITAL MEDICINE PROGRESS NOTE SERVICE DATE: 03/23/2018 SERVICE TIME: 2:35 PM Hospital Medicine/Primary Attending: Liza Barry MD NIGHT AND WEEKEND COVERAGE: Nights: Please contact pager [phone]. Subjective INTERVAL HPI: pt seen and examined, feels better today MEDICATIONS: Reviewed Objective PHYSICAL EXAM: BP 124/66 Pulse 58 Temp (Src) 98.2 (Oral) Resp 18 Ht 5' 4 (1.63m) Wt 198 lb 13.7 oz (90.2kg) SpO2 97% BMI 34.12 kg/(m2). Physical Exam Performed GENERAL: Alert, no distress, cooperative SKIN: Skin color, texture, turgor normal. No rashes or lesions. LUNGS: Lungs clear to auscultation, Good diaphragmatic excursion CARDIAC: Normal S1 and S2; no rubs, murmurs, or gallops ABDOMEN: Abdomen soft, non-tender, BS normal, No masses or organomegaly EXTREMITIES: right lower extremity wrapped, right foot deformed, everted Lines, Drains, and Airways Line Peripheral 03/21/18 0230 Short Right Forearm 22 Gauge 2 days Drain Indwelling Urinary Catheter 03/17/18 1903 Vitale 20 Fr 5 days DATA: Diagnostic tests reviewed for today's visit: Most recent labs and imaging results. Recent Labs 03/23/18 0423 03/22/18 0533 03/21/18 0411 WBC 5.14 5.21 5.63 HB 10.2* 10.3* 10.8* PLT 173 176 171 INR 1.6* 1.9* 2.3* NA 137 138 137 K 5.0 4.7 4.6 CO2 33* 32* 32* BUN 28* 31* 37* CREAT 1.33* 1.18* 1.40* Assessment/Plan Active Problems: Right leg cellulitis Switch to po abx IANDD yesterday AFib, Chronic Rate controlled Beta louann dc'ed in view of sinus pauses which have resolved PING Renal function improving Continue to hold diuretics Pressure ulcers: Stage 3 pressure ulcer right lateral ankle, Stage I pressure ulcer ? left heel - present on admission Chronic diastolic heart failure Stable, compensated Medication and Non-Pharmacologic VTE Prophylaxis/Anticoagulants Anticoagulant AND Antiplatelet Medications Start Dose Route Frequency Ordered Stop 03/23/18 1700 warfarin 7.5 mg tab(s) (COUMADIN) 7.5 mg ORAL DAILY 03/23/18 1025 -- 03/18/18 0900 aspirin, enteric coated 81 mg tab(s) (ASPIRIN, ENTERIC COATED) 81 mg ORAL DAILY 03/17/18 2018 -- 03/17/182029 vte non-pharmacologic prophylaxis contraindicated (ak,ma) 03/17/182029 vte current anticoag therapy (ak,ma) VTE Prophylaxis: VTE prophylaxis appropriate Disposition: Home with [facility] Plan of care discussed with: Patient SIGNATURE: Liza Barry MD PATIENT NAME: Rosa Beltran DATE: March 23, 2018 TIME: 2:36 PM PAGER/CONTACT #: [phone] etx [id number] CONSULT PROG Observed: 03/23/2018 Status: COMPLETED Source: [facility] 9:05 AM CLINIC OTHER CAMPUS REPOSITORY HNO ID: [id number] Author: Checo Kay MD Service: Infectious Disease Author Type: Physician Type: Consult Progress Note Filed: 03/23/2018 9:08 AM Note Text: INFECTIOUS DISEASE PROGRESS NOTE Patient Name: Rosa Beltran INTERVAL HISTORY: Leg debrided by podiatry. No fevers. R leg cultures w PsAG.ASE. WBC now normal. ROS checked in details. All qs answered. Patient Active Hospital Problem List: Leg ulcer, right, with fat layer exposed (HCC) (03/17/2018) ASSESSMENT: Right leg ulcers Mild surrounding Cellulitis of RLE PAD Prior cx with 02/15 MSSA and Proteus mirabilis COPD CAD Afib RA ? Plan --Discontinue Zosyn --Start PO Cipro and augmentin. rx x 10 days more --Watch INR on coumadin and cipro --Check ESR and CRP, 52 and 6 respectively. --wound care MEDICATIONS: reviewed. Current hospital medications: warfarin 4 mg tab(s) (COUMADIN) 4 mg ORAL DAILY docusate sodium 100 mg cap(s) (COLACE) 100 mg ORAL BID PRN piperacillin-tazobactam 3.375 g in dextrose (iso-osmotic) 50 mL (ZOSYN) 3.375 g INTRAVENOUS q 8 H acetaminophen 1,000 mg tab(s) (TYLENOL) 1,000 mg ORAL q 6 H PRN gabapentin 300 mg cap(s) (NEURONTIN) 300 mg ORAL BID therapeutic multivitamin with iron (THERAGRAN-M) 1 tablet ORAL DAILY aspirin, enteric coated 81 mg tab(s) (ASPIRIN, ENTERIC COATED) 81 mg ORAL DAILY pantoprazole DR 20 mg tab(s) (PROTONIX) 20 mg ORAL DAILY levothyroxine 100 mcg tab(s) (SYNTHROID) 100 mcg ORAL DAILY (6 AM) ondansetron orally disintegrating 4 mg tab(s) (ZOFRAN ODT) 4 mg ORAL q 6 H PRN ondansetron (PF) 4 mg injection (ZOFRAN) 4 mg INTRAVENOUS q 6 H PRN oxyCODONE-acetaminophen 5-325 mg 1 tablet (PERCOCET) 1 tablet ORAL q 8 H PRN perflutren lipid microspheres 1.1 mg/mL 1.3 mL injection (DEFINITY) 1.3 mL INTRAVENOUS DIRECTED PRN PHYSICAL EXAM: Vital signs: BP (!) 101/49 Pulse 63 Temp 37 ?C (98.6 ?F) (Oral) Resp 18 Ht 162.6 cm (5' 4) Wt 90.2 kg (198 lb 13.7 oz) SpO2 98% BMI 34.13 kg/m? Temp (24hrs), Av.7 ?C (98.1 ?F), Min:36.4 ?C (97.5 ?F), Max:37.2 ?C (99 ?F) General: alert, oriented, NAD Lungs: bilaterally clear to auscultation Heart: regular rate and rhythm Abdomen: soft, non tender, non distended, BS+ Extremities: R leg wound w dressing and redness receeding No rashes No joint inflammation Neck supple Lines ok No CVAT Labs: Recent Labs 03/23/18 0423 03/22/18 0533 03/21/18 0411 WBC 5.14 5.21 5.63 HB 10.2* 10.3* 10.8* HCT 34.8* 34.5* 35.8* PLT 173 176 171 INR 1.6* 1.9* 2.3* NA 137 138 137 K 5.0 4.7 4.6 CHLOR 98 99 97 CO2 33* 32* 32* BUN 28* 31* 37* CREAT 1.33* 1.18* 1.40* Microbiology data: reviewed Imaging data: reviewed Checo Kay MD [phone] 03/23/2018 9:06 AM PROTIME Collected: 03/23/2018 Status: F Source: [facility] 4:23 AM CLINIC OTHER CAMPUS REPOSITORY TYPE CODE TESTS RESULT OUT OF RANGE REFERENCE UNITS LAB PSEC 9.7-13.0 sec High PT Sec 16.2 LAB INR 0.9-1.3 High PT INR 1.6 Result Comment: Vitamin K Antagonist (VKA) Therapeutic Range: INR 2 to 3 (Target INR of 2.5) Note: For patients treated with VKA drugs, such as warfarin, the [place] [employer] 2012 Guideline recommends a therapeutic INR range of 2 to 3 (target INR of 2.5). This recommendation includes high-risk patients with antiphospholipid syndrome with previous arterial or venous thromboembolism, current-generation mechanical or bioprosthetic aortic heart valve replacement. Note: Patients with mechanical aortic valve replacement and additional risk factors for thromboembolic events (atrial fibrillation, previous thromboembolism, LV dysfunction, hypercoagulable conditions) or an older generation mechanical AVR (i.e., ball in-Cage) or any mechanical MVR should have a INR therapeutic range of 2.5 to 3.5 (target INR of 3). Shweta GH, et al. Chest 2012, 141:7S-47S Genevieve RA, et al. JAC 2017, 70: 252-289 Performed By: #### PT, CBCDIF, BMP #### [facility] [address] [place] [address] CBC AND DIFFERENTIAL Collected: 03/23/2018 Status: F Source: [facility] 4:23 AM [facility] OTHER CAMPUS REPOSITORY TYPE CODE TESTS RESULT OUT OF REFERENCE UNITS RANGE LAB WBC 3.70-11.00 k/uL WBC 5.14 LAB RBC 3.90-5.20 m/uL Low RBC 3.75 LAB HGB 11.5-15.5 g/dL Low Hemoglobin 10.2 LAB HCT 36.0-46.0 % Low Hematocrit 34.8 LAB MCV 80.0-100.0 fL MCV 92.8 LAB MCH 26.0-34.0 pG MCH 27.2 LAB MCHC 30.5-36.0 g/dL Low MCHC 29.3 LAB RDWCV 11.5-15.0 % RDW-CV High 16.1 LAB PLTCT 150-400 k/uL Platelet Count 173 LAB MPV 9.0-12.7 fL MPV 10.9 LAB ANEUT % Neut% 50.0 LAB AANEUT 1.45-7.50 k/uL Abs Neut 2.57 LAB ALYMP % Lymph% 30.5 LAB AALYMP 1.00-4.00 k/uL Abs Lymph 1.57 LAB AMONO % [place]% 12.3 LAB AAMONO <0.87 k/uL Abs [place] 0.63 LAB AEOS % Eosin% 6.6 LAB AAEOS <0.46 k/uL Abs Eosin 0.34 LAB ABASO % Baso% 0.6 LAB AABASO <0.11 k/uL Abs Baso 0.03 Performed By: #### PT, CBCDIF, [facility] #### [facility] [address] [facility] [phone] BASIC METABOLIC PANL Collected: 03/23/2018 Status: F Source: [facility] 4:23 AM [facility] OTHER [place] REPOSITORY TYPE CODE TESTS RESULT OUT OF REFERENCE UNITS RANGE LAB GLU 74-99 mg/dL Glucose 82 Result Comment: The [place] [employer] (ADA) provides guidance for cutoff values for fasting glucose and random glucose. The ADA defines fasting as no caloric intake for at least 8 hours. Fas ting plasma glucose results between 100 to 125 mg/dL indicate increased risk for diabetes (prediabetes). Fasting plasma glucose results greater than or equal to 126 mg/dL meet the criteria for diagnosis of diabetes. In the absence of unequivocal hyperglycemia, results should be confirmed by repeat testing. In a patient with classic symptoms of hyperglycemia or hyperglycemic crisis, random plasma glucose results greater than or equal to 200 mg/dL meet the criteria for diagnosis of diabetes. Reference: Standards of Medical Care in Diabetes 2016, [place] [employer]. Diabetes Care. 2016.39(Suppl 1). LAB BUN 7-21 mg/dL BUN High 28 LAB CRET 0.58-0.96 mg/dL Creatinine High 1.33 LAB NA 136-144 mmol/L Sodium 137 LAB K 3.7-5.1 mmol/L Potassium 5.0 LAB CL 97-105 mmol/L Chloride 98 LAB CO2 22-30 mmol/L CO2 High 33 LAB AGAP 9-18 mmol/L Low Anion Gap 6 LAB CA 8.5-10.2 mg/dL Calcium, Total 8.5 LAB GFRAA eGFR- Amer. 46 LAB GFRNAA . eGFR-All Other Races 38 Result Comment: eGFR (Estimated GFR) Units of measure: mL/min/1.73 meters squared eGFR is derived from the reexpressed MDRD Study equation using the following parameters: serum creatinine, age, gender and race. The creatinine assay has been calibrated to be traceable to IDMS. An eGFR <60 mL/min/1.73m2 for >3 months is consistent with chronic kidney disease. Refer to KDOQI guidelines for clinical interpretation. In patients with unstable renal function, e.g. those with acute kidney injury, the eGFR may not accurately reflect actual GFR. Performed By: #### PT, CBCDIF, BMP #### [facility] [address] [place] [address] ANES POST Observed: 03/22/2018 Status: COMPLETED Source: [facility] 3:10 PM [facility] OTHER CAMPUS REPOSITORY O ID: [id number] Author: Vivek Gonzalez Service: Anesthesiology Author Type: Anesthesiologist Type: Anesthesia PostOp Filed: 03/22/2018 3:11 PM Note Text: POST ANESTHESIA EVALUATION NOTE SERVICE DATE: 03/22/2018 SERVICE TIME: 3:10 PM : 1935 Vitals: 03/21/18 2037 03/21/18 2319 03/22/18 0915 03/22/18 1303 Temp: 37.2 ?C (99 ?F) 37.4 ?C (99.3 ?F) 36.4 ?C (97.5 ?F) 36.8 ?C (98.2 ?F) 03/22/18 1303 03/22/18 1330 03/22/18 1345 03/22/18 1400 BP: 115/72 122/58 137/64 134/80 03/22/18 1303 03/22/18 1330 03/22/18 1345 03/22/18 1400 Pulse: (!) 56 (!) 53 (!) 59 (!) 58 03/22/18 1303 03/22/18 1330 03/22/18 1345 03/22/18 1400 Resp: 20 20 20 20 03/22/18 1303 03/22/18 1330 03/22/18 1345 03/22/18 1400 SpO2: 99% 100% 100% 99% Validated Vital Signs: Yes POST ANES STATUS: No apparent anesthetic complications. The patient is appropriately hydrated with stable respiratory and cardiovascular status. Patient has safe and adequate airway control. The patient has appropriate pain relief and no significant post operative nausea or vomiting. The patient has achieved baseline mental status. Further assessment by Anesthesia Service: None Other Remarks: SIGNATURE: Vivek Gonzalez MD PATIENT NAME: Rosa Beltran DATE: March 22, 2018 TIME: 3:10 PM PAGER/CONTACT #: [phone] PROGRESS Observed: 03/22/2018 Status: COMPLETED Source: [facility] 2:20 PM CLINIC OTHER CAMPUS REPOSITORY HNO ID: [id number] Author: Liza Barry Service: General Internal Medicine Author Type: Physician Type: Progress Notes Filed: 03/22/2018 2:21 PM Note Text: DEPARTMENT OF HOSPITAL MEDICINE PROGRESS NOTE SERVICE DATE: 03/22/2018 SERVICE TIME: 2:20 PM Hospital Medicine/Primary Attending: Liza Barry MD NIGHT AND WEEKEND COVERAGE: Nights: Please contact pager [phone]. Subjective INTERVAL HPI: pt seen and examined, nauseous MEDICATIONS: Reviewed Objective PHYSICAL EXAM: BP 134/80 Pulse 58 Temp (Src) 98.2 (Temporal Artery) Resp 20 Ht 5' 4 (1.63m) Wt 206 lb 2.1 oz (93.5kg) SpO2 99% BMI 35.36 kg/(m2). Physical Exam Performed GENERAL: Alert, no distress, cooperative SKIN: Skin color, texture, turgor normal. No rashes or lesions. LUNGS: Lungs clear to auscultation, Good diaphragmatic excursion CARDIAC: Normal S1 and S2; no rubs, murmurs, or gallops ABDOMEN: Abdomen soft, non-tender, BS normal, No masses or organomegaly EXTREMITIES: right lower extremity wrapped, right foot deformed, everted Lines, Drains, and Airways Line Peripheral 03/21/18 0230 Short Right Forearm 22 Gauge 1 day Drain Indwelling Urinary Catheter 03/17/18 1903 Vitale 20 Fr 4 days DATA: Diagnostic tests reviewed for today's visit: Most recent labs and imaging results. Recent Labs 03/22/18 0533 03/21/18 0411 03/20/18 0500 WBC 5.21 5.63 -- HB 10.3* 10.8* -- PLT 176 171 -- INR 1.9* 2.3* 2.2* NA 138 137 134* K 4.7 4.6 4.2 CO2 32* 32* 30 BUN 31* 37* 45* CREAT 1.18* 1.40* 1.65* Assessment/Plan Active Problems: Right leg cellulitis Continue empiric abx For IANDD today PVR studies pending AFib, Chronic Rate controlled Resume coumadin today Beta louann dc'ed in view of sinus pauses which have resolved PING Renal function improving Continue to hold diuretics Pressure ulcers: Stage 3 pressure ulcer right lateral ankle, Stage I pressure ulcer ? left heel - present on admission Chronic diastolic heart failure Stable, compensated Medication and Non-Pharmacologic VTE Prophylaxis/Anticoagulants Anticoagulant AND Antiplatelet Medications Start Dose Route Frequency Ordered Stop 03/18/18 0900 [MAR Hold due to Transfer] aspirin, enteric coated 81 mg tab(s) (ASPIRIN, ENTERIC COATED) (MAR Hold due to Transfer since 03/22/18 1150) 81 mg ORAL DAILY 03/17/182017 -- 03/17/182029 [MAR Hold due to Transfer] warfarin 3 mg tab(s) (COUMADIN) (MAR Hold due to Transfer since 03/22/18 1150) 3 mg ORAL DAILY 03/17/182017 -- 03/17/182029 vte non-pharmacologic prophylaxis contraindicated (fl,oh) 03/17/182029 vte current anticoag therapy ([place]) VTE Prophylaxis: VTE prophylaxis appropriate Disposition: Home with [facility] Plan of care discussed with: Patient SIGNATURE: Liza Barry MD PATIENT NAME: Rosa Beltran DATE: March 22, 2018 TIME: 2:21 PM PAGER/CONTACT #: [phone] etx [id number] WOUND Observed: 03/22/2018 Status: F Source: [facility] CULTURE/STAIN 1:27 PM [facility] REPOSITORY Smear Result - No organisms seen Rare Polymorphonuclear leukocytes Culture Result - Rare Pseudomonas aeruginosa --> ABNORMAL ALERT Refer to specimen collected on 03/19/2018 AT 17:00 ([id number]) Rare --> ABNORMAL ALERT Coagulase negative Staphylococcus species --&gt ; ABNORMAL ALERT No further workup --> ABNORMAL ALERT Performed By: #### WCUL #### [facility] [address] [address] Observed: 03/22/2018 Status: F Source: [facility] ANAEROBE CULTURE 1:27 PM [facility] REPOSITORY Culture Result - Negative for anaerobes. Performed By: #### ANACUL #### [facility] [address] [address] BRIEF OP NOT Observed: 03/22/2018 Status: COMPLETED Source: [facility] 12:52 PM [facility] REPOSITORY HNO ID: [id number] Author: Chintan Dempsey DPM Service: Podiatry Author Type: Physician Type: Brief Op Note Filed: 03/22/2018 12:54 PM Note Text: BRIEF OPERATIVE / PROCEDURE NOTE LOG ID: [id number] SURGERY/PROCEDURE DATE: 03/22/2018 INCISION/PROCEDURE START TIME: 12:41 PM INCISION CLOSE/PROCEDURE END TIME: SURGEON(S)/PROCEDURALIST(S) AND CARGO WORKER(S): Surgeon(s) and Role: * Chintan Dempsey DPM - Primary * Jessica Yeager - Resident - Assisting No Additional Staff SURGERY/PROCEDURE(S): ID right leg Excisional debridement level fat fascia Wounds noted total sqcm 65 sqcm ANESTHESIA: Monitored Anesthesia Care FINDINGS: ESTIMATED BLOOD LOSS: less then ten css SPECIMENS: culturse post lavage COMPLICATIONS: none PRE-OP/PRE-PROCEDURE DIAGNOSIS: venous stasis ulcer level of fat, cellulits right leg non healing ulcer Non healing ulcers PVD pad lymphedema right leg POST-OP/POST-PROCEDURE DIAGNOSIS: Wound infection SIGNATURE: Chintan Dempsey DPM PATIENT NAME: Rosa Beltran DATE: March 22, 2018 TIME: 12:53 PM PAGER/CONTACT #: ANES PREOP Observed: 03/22/2018 Status: COMPLETED Source: [facility] 11:36 AM CLINIC OTHER CAMPUS REPOSITORY [facility] ID: [id number] Author: Taran Lawton Service: Anesthesiology Author Type: Anesthesiologist Type: Anesthesia PreOp Filed: 03/22/2018 11:37 AM Note Text: ANESTHESIOLOGY DAY OF SURGERY NOTE SERVICE DATE: 03/22/2018 SERVICE TIME: 11:36 AM : 1935 Procedure(s) (LRB): INCISION AND DRAINAGE ABSCESS LEG OR ANKLE (Right) DEBRIDEMENT BONE W/ EPIDERMIS/DERMIS/ SUBCUTANEOUS TISSUE/ MUSCLE/FASCIA FIRST 20 SQ CM OR LESS (Right) Surgeon(s): Chintan Dempsey DPM Estimated body mass index is 35.38 kg/m? as calculated from the following: Height as of this encounter: 162.6 cm (5' 4). Weight as of this encounter: 93.5 kg (206 lb 2.1 oz). Most recent hematocrit and potassium results: Hematocrit 34.5 03/22/2018 Potassium 4.6 03/21/2018 ANES DOS/PREOP NOTE: Vitals: 03/21/18 1604 03/21/18 2037 03/21/18 2319 03/22/18 0915 BP: 147/91 127/78 148/77 122/68 Pulse: 75 66 61 60 Resp: Temp: 36.5 ?C (97.7 ?F) 37.2 ?C (99 ?F) 37.4 ?C (99.3 ?F) 36.4 ?C (97.5 ?F) TempSrc: Axillary Oral Oral Oral SpO2: 94% 95% 97% 95% Weight: Height: ACTIVE PROBLEM LIST Gastroesophageal Reflux Disease Without Esophagitis Chronic Atrial Fibrillation (Hcc) Pure Hypercholesterolemia Hypertension Acquired Hypothyroidism Cad (Coronary Artery Disease) Primary Osteoarthritis Involving Multiple Joints Lymphedema of Both Lower Extremities Mouth Dryness Muscular Weakness Dorsalgia Stented Coronary Artery Gastric Bypass Status for Obesity Bilateral Leg Ulcer (Hcc) Polyneuropathy (Hcc) Cecal Ulcer Respiratory Failure With Hypoxia (Hcc) Heart Failure With Preserved Ejection Fraction (Hcc) Adjustment Disorder With Depressed Mood Constipation Leg Ulcer, Right, With Fat Layer Exposed ([facility]) PAST MEDICAL HISTORY Diagnosis Date - Acquired hypothyroidism - Acute respiratory failure with hypoxia (HCC) 09/30/2017 - Atrial fibrillation (HCC) - CAD (coronary artery disease) Dr. Brenda Awan Hts, Promus element KIMMY LAD 11/20/2012, Stress test 04/2014 inferoapical reversible ischemia,small LVEF 48- 50%, LHC 12/2014 L main-normal, LAD widely patent, Cx diffuse mild luminal irregularities with 80%focal stenosis distal, RCA dominant with minimal luminal irregularities. 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 - Pure hypercholesterolemia - Rheumatoid arthritis ([facility]) 2007 - Sleep apnea - Stented coronary artery 12/29/2016 PAST SURGICAL HISTORY Procedure Laterality Date - CC CORONARY STENT 11/20/2012 KIMMY LAD - CC CORONARY STENT 12/20/2014 KIMMY, Cfx - SECTION HX - COLONOSCOPY 06/10/2017 [facility], Nonspecific cecal ulcer - GASTRIC BYPASS HX 1986 - HERNIA REPAIR HX 1987; 1989 - PAST SURGICAL HISTORY OF Right 09/2015 right tibia fracture ORIF - PAST SURGICAL HISTORY OF Right 01/20/2016 Removal of hardware, right tibia - TOTAL KNEE REPLACEMENT Right 2003 [facility] Gen. - TOTAL KNEE REPLACEMENT Left 2004 [facility] Gen. No family history on file. Social History: Social History Substance Use Topics - Smoking status: Passive Smoke Exposure - Never Smoker - Smokeless tobacco: Never Used Comment: smoked for 40 years - Alcohol use No No current facility-administered medications on file prior to encounter. Current Outpatient Prescriptions on File Prior to Encounter: metoprolol tartrate, short acting, (LOPRESSOR) 25 mg tablet Take 0.5 tablets by mouth twice daily. lisinopril (ZESTRIL) 2.5 mg tablet Take 1 tablet by mouth every evening. omeprazole (PRILOSEC) 20 mg capsule Take 1 capsule by mouth once daily. docusate sodium (COLACE) 100 mg capsule Take 1 capsule by mouth once daily as needed for Constipation. furosemide (LASIX) 40 mg tablet Take 2 tablets by mouth twice daily. spironolactone (ALDACTONE) 25 mg tablet Take 1 tablet by mouth twice daily. metOLAzone (ZAROXOLYN) 2.5 mg tablet Take 2 tablets by mouth once daily. sodium hypochlorite (DAKIN'S SOLUTION) 0.125 % soln Dakin's moistened gauze packing every other day to wound for bacterial control. warfarin (COUMADIN) 3 mg tablet Take 1 tablet by mouth daily as directed. Patient is taking 2mg Tuesday and and 3mg other days. (Patient taking differently: Take 3 mg by mouth once daily. ) gabapentin (NEURONTIN) 300 mg capsule Take 1 capsule by mouth twice daily for 180 days. ASCORBIC ACID (VITAMIN C ORAL) Take 1 tablet by mouth twice daily. silver sulfADIAZINE (SILVADENE) 1 % cream Apply to leg wounds as directed. acetaminophen (TYLENOL) 500 mg tablet Take 1,000 mg by mouth every 8 hours as needed. aspirin, enteric coated (ASPIRIN, ENTERIC COATED) 81 mg EC tablet Take 81 mg by mouth every evening. therapeutic multivitamin w/ iron (THERAGRAN-M) 9 mg iron-400 mcg tablet Take 1 tablet by mouth once daily. levothyroxine (LEVOXYL) 100 mcg tablet Take 1 tablet by mouth once daily. Take on empty stomach. For Thyroid. Zinc Sulfate 220 mg tab Take 1 tablet by mouth once daily for 14 days. COMPOUNDED PRESCRIPTION Calcium Alginate 4x4 Dressing, change daily Dx: Blister left leg with infection S80.822A, L08.9; Lymphedema I89.0. Wound dimensions: 4 x 3 cm Current Facility-Administered Medications: docusate sodium 100 mg cap(s) (COLACE) 100 mg ORAL BID PRN Saminder Eric 100 mg at 03/21/18 1219 piperacillin-tazobactam 3.375 g in dextrose (iso-osmotic) 50 mL (ZOSYN) 3.375 g INTRAVENOUS q 8 H Checo Kay MD Last Rate: 100 mL/hr at 03/22/18 0520 3.375 g at 03/22/18 0520 warfarin 3 mg tab(s) (COUMADIN) 3 mg ORAL DAILY Chandramohan Meenakshisundaram 3 mg at 03/20/18 1631 acetaminophen 1,000 mg tab(s) (TYLENOL) 1,000 mg ORAL q 6 H PRN Chandramohan Meenakshisundaram 1,000 mg at 03/22/18 0519 gabapentin 300 mg cap(s) (NEURONTIN) 300 mg ORAL BID Chandramohan Meenakshisundaram 300 mg at 03/22/18 0908 therapeutic multivitamin with iron (THERAGRAN-M) 1 tablet ORAL DAILY Chandramohan Meenakshisundaram 1 tablet at 03/22/18 0908 aspirin, enteric coated 81 mg tab(s) (ASPIRIN, ENTERIC COATED) 81 mg ORAL DAILY Chandramohan Meenakshisundaram 81 mg at 03/21/[address] 20 mg tab(s) (PROTONIX) 20 mg ORAL DAILY Chandramohan Meenakshisundaram 20 mg at 03/22/18 0520 levothyroxine 100 mcg tab(s) (SYNTHROID) 100 mcg ORAL DAILY (6 AM) Chandramohan Meenakshisundaram 100 mcg at 03/22/18 0520 ondansetron orally disintegrating 4 mg tab(s) (ZOFRAN ODT) 4 mg ORAL q 6 H PRN Chandramohan Meenakshisundaram 4 mg at 03/20/18 1015 Or ondansetron (PF) 4 mg injection (ZOFRAN) 4 mg INTRAVENOUS q 6 H PRN Chandramohan Meenakshisundaram 4 mg at 03/22/18 0621 oxyCODONE-acetaminophen 5-325 mg 1 tablet (PERCOCET) 1 tablet ORAL q 8 H PRN Chandramohan Meenakshisundaram perflutren lipid microspheres 1.1 mg/mL 1.3 mL injection (DEFINITY) 1.3 mL INTRAVENOUS DIRECTED PRN Chandramohan Meenakshisundaram Allergies: ALLERGIES No Known Allergies DOS EXAM: Adequate NPO status: Yes Anesthetic risks, benefits, alternatives, personnel and consent discussed: Yes Patient agrees to proceed: Yes Previous Anesthesia: No history of adverse event. Airway Assessment: MP 2; Neck ROM: Full ROM without neurologic symptoms; Airway Evaluation: No significant abnormalities Symptoms of Sleep Apnea: None Dentition: Teeth intact Additional Physical Exam: Lungs: Patient health status unchanged since recent history and physical. See history and physical for exam findings. Cardiac: Patient health status unchanged since recent history and physical. See history and physical for exam findings. Additional Pertinent Findings: N/A Blood Products: Not anticipated for this procedure. Anesthetic Plan: General, Standard ASA Monitors and MAC with Sedation Pain Management Plan: Parenteral or Oral ASA Class: 3 Other Medical Problems: cad,copd I have interviewed and examined the patient. I have reviewed the medical record and/or the pre-anesthesia evaluation, pertinent labs, and test results. Significant changes in the patient's condition since the History and Physical, not otherwise documented in primary service progress notes: No This contains updated information obtained within 48 hours of Surgery/Procedure. SIGNATURE: Taran Lawton MD PATIENT NAME: Rosa Beltran DATE: March 22, 2018 TIME: 11:36 AM CSN: [id number] CONSULT PROG Observed: 03/22/2018 Status: COMPLETED Source: [facility] 9:28 AM [facility] OTHER CAMPUS REPOSITORY [facility] ID: [id number] Author: Checo Kay MD Service: Infectious Disease Author Type: Physician Type: Consult Progress Note Filed: 03/22/2018 11:50 AM Note Text: INFECTIOUS DISEASE PROGRESS NOTE Patient Name: Rosa Beltran INTERVAL HISTORY: No fevers. R leg cultures w PsAG. WBC now normal. ROS checked in details. All qs answered. Patient Active Hospital Problem List: Leg ulcer, right, with fat layer exposed (HCC) (03/17/2018) ASSESSMENT: Right leg ulcers Mild surrounding Cellulitis of RLE PAD Prior cx with 02/15 MSSA and Proteus mirabilis COPD CAD Afib RA ? Plan --Continue Zosyn --Follow wound cx for PsAG MICs --Check ESR and CRP, 52 and 6 respectively. --wound care -- following MEDICATIONS: reviewed. Current hospital medications: docusate sodium 100 mg cap(s) (COLACE) 100 mg ORAL BID PRN piperacillin-tazobactam 3.375 g in dextrose (iso-osmotic) 50 mL (ZOSYN) 3.375 g INTRAVENOUS q 8 H warfarin 3 mg tab(s) (COUMADIN) 3 mg ORAL DAILY acetaminophen 1,000 mg tab(s) (TYLENOL) 1,000 mg ORAL q 6 H PRN gabapentin 300 mg cap(s) (NEURONTIN) 300 mg ORAL BID therapeutic multivitamin with iron (THERAGRAN-M) 1 tablet ORAL DAILY aspirin, enteric coated 81 mg tab(s) (ASPIRIN, ENTERIC COATED) [address] mg OR[address] DAILY pantoprazole [address] 20 mg tab(s) (PROTONIX) 20 mg ORAL DAILY levothyroxine 100 mcg tab(s) (SYNTHROID) 100 mcg ORAL DAILY (6 AM) ondansetron orally disintegrating 4 mg tab(s) (ZOFRAN ODT) 4 mg ORAL q 6 H PRN ondansetron (PF) 4 mg injection (ZOFRAN) 4 mg INTRAVENOUS q 6 H PRN oxyCODONE-acetaminophen 5-325 mg 1 tablet (PERCOCET) 1 tablet ORAL q 8 H PRN perflutren lipid microspheres 1.1 mg/mL 1.3 mL injection (DEFINITY) 1.3 mL INTRAVENOUS DIRECTED PRN PHYSICAL EXAM: Vital signs: BP 122/68 Pulse 60 Temp 36.4 ?C (97.5 ?F) (Oral) Resp 22 Ht 162.6 cm (5' 4) Wt 93.5 kg (206 lb 2.1 oz) SpO2 95% BMI 35.38 kg/m? Temp (24hrs), Av.9 ?C (98.5 ?F), Min:36.4 ?C (97.5 ?F), Max:37.4 ?C (99.3 ?F) General: alert, oriented, NAD Lungs: bilaterally clear to auscultation Heart: regular rate and rhythm Abdomen: soft, non tender, non distended, BS+ Extremities: R leg wound w dressing and redness receeding No rashes No joint inflammation Neck supple Lines ok No CVAT Labs: Recent Labs 03/22/18 0533 03/21/18 0411 03/20/18 0500 WBC 5.21 5.63 -- HB 10.3* 10.8* -- HCT 34.5* 35.8* -- PLT 176 171 -- INR 1.9* 2.3* 2.2* NA -- 137 134* K -- 4.6 4.2 CHLOR -- 97 95* CO2 -- 32* 30 BUN -- 37* 45* CREAT -- 1.40* 1.65* Microbiology data: reviewed Imaging data: reviewed Checo Kay MD [phone] 03/22/2018 9:30 AM PROTIME Collected: 03/22/2018 Status: F Source: [facility] 5:33 AM [facility] OTHER CAMPUS REPOSITORY TYPE CODE TESTS RESULT OUT OF RANGE REFERENCE UNITS LAB PSEC 9.7-13.0 sec High PT Sec 19.1 LAB INR 0.9-1.3 High PT INR 1.9 Result Comment: Vitamin K Antagonist (VKA) Therapeutic Range: INR 2 to 3 (Target INR of 2.5) Note: For patients treated with VKA drugs, such as warfarin, the [place] [employer] 2012 Guideline recommends a therapeutic INR range of 2 to 3 (target INR of 2.5). This recommendation includes high-risk patients with antiphospholipid syndrome with previous arterial or venous thromboembolism, current-generation mechanical or bioprosthetic aortic heart valve replacement. Note: Patients with mechanical aortic valve replacement and additional risk factors for thromboembolic events (atrial fibrillation, previous thromboembolism, LV dysfunction, hypercoagulable conditions) or an older generation mechanical AVR (i.e., ball in-Cage) or any mechanical MVR should have a INR therapeutic range of 2.5 to 3.5 (target INR of 3). Shweta SALOMON, et al. Chest 2012, 141:7S-47S Genevieve ESTRADA et al. [facility] 2017, 70: 252-289 Performed By: #### PT, CBCDIF #### [facility] [address] [place] [address] CBC AND DIFFERENTIAL Collected: 03/22/2018 Status: F Source: [place] 5:33 AM [facility] OTHER CAMPUS REPOSITORY TYPE CODE TESTS RESULT OUT OF REFERENCE UNITS RANGE LAB WBC 3.70-11.00 k/uL WBC 5.21 LAB RBC 3.90-5.20 m/uL Low RBC 3.73 LAB HGB 11.5-15.5 g/dL Low Hemoglobin 10.3 LAB HCT 36.0-46.0 % Low Hematocrit 34.5 LAB MCV 80.0-100.0 fL MCV 92.5 LAB MCH 26.0-34.0 pG MCH 27.6 LAB MCHC 30.5-36.0 g/dL Low MCHC 29.9 LAB RDWCV 11.5-15.0 % RDW-CV High 16.2 LAB PLTCT 150-400 k/uL Platelet Count 176 LAB MPV 9.0-12.7 fL MPV 11.1 LAB ANEUT % Neut% 49.7 LAB AANEUT 1.45-7.50 k/uL Abs Neut 2.59 LAB ALYMP % Lymph% 31.9 LAB AALYMP 1.00-4.00 k/uL Abs Lymph 1.66 LAB AMONO % [place]% 11.1 LAB AAMONO <0.87 k/uL Abs [place] 0.58 LAB AEOS % Eosin% 6.5 LAB AAEOS <0.46 k/uL Abs Eosin 0.34 LAB ABASO % Baso% 0.8 LAB AABASO <0.11 k/uL Abs Baso 0.04 Performed By: #### PT, CBCDIF #### [facility] [address] [place] [address] BASIC METABOLIC PANL Collected: 03/22/2018 Status: F Source: [facility] 5:33 AM [facility] OTHER CAMPUS REPOSITORY TYPE CODE TESTS RESULT OUT OF REFERENCE UNITS RANGE LAB GLU 74-99 mg/dL Glucose 76 Result Comment: The [place] [employer] (ADA) provides guidance for cutoff values for fasting glucose and random glucose. The ADA defines fasting as no caloric intake for at least 8 hours. Fas ting plasma glucose results between 100 to 125 mg/dL indicate increased risk for diabetes (prediabetes). Fasting plasma glucose results greater than or equal to 126 mg/dL meet the criteria for diagnosis of diabetes. In the absence of unequivocal hyperglycemia, results should be confirmed by repeat testing. In a patient with classic symptoms of hyperglycemia or hyperglycemic crisis, random plasma glucose results greater than or equal to 200 mg/dL meet the criteria for diagnosis of diabetes. Reference: Standards of Medical Care in Diabetes 2016, [place] [employer]. Diabetes Care. 2016.39(Suppl 1). LAB BUN 7-21 mg/dL BUN High 31 LAB CRET 0.58-0.96 mg/dL Creatinine High 1.18 LAB NA 136-144 mmol/L Sodium 138 LAB K 3.7-5.1 mmol/L Potassium 4.7 LAB CL 97-105 mmol/L Chloride 99 LAB CO2 22-30 mmol/L CO2 High 32 LAB AGAP 9-18 mmol/L Low Anion Gap 7 LAB CA 8.5-10.2 mg/dL Calcium, Total 8.7 LAB GFRAA eGFR- Amer. 53 LAB GFRNAA . eGFR-All Other Races 44 Result Comment: eGFR (Estimated GFR) Units of measure: mL/min/1.73 meters squared eGFR is derived from the reexpressed MDRD Study equation using the following parameters: serum creatinine, age, gender and race. The creatinine assay has been calibrated to be traceable to IDMS. An eGFR <60 mL/min/1.73m2 for >3 months is consistent with chronic kidney disease. Refer to KDOQI guidelines for clinical interpretation. In patients with unstable renal function, e.g. those with acute kidney injury, the eGFR may not accurately reflect actual GFR. Performed By: #### BMP #### [facility] [address] [place] [id number] NURSING PROG Observed: 03/22/2018 Status: COMPLETED Source: [place] 3:33 AM [facility] REPOSITORY HNO ID: [id number] Author: Timothy (Rn) ELENA Esposito Service: Nursing Author Type: Registered Nurse Type: Nursing Progress Note Filed: 03/22/2018 3:54 AM Note Text: Nursing Progress Note Patient Name: Rosa Beltran Patient Location: [address] Daily Note: 3333 LIP paged r/t pt asking for pain med, pt currently NPO. 0351 Okay with NPO except meds per Dr. Reyes. This note was completed by: Timothy Esposito RN OPERATIVE NO Observed: 03/22/2018 Status: COMPLETED Source: [place] 12:00 AM [facility] REPOSITORY HNO ID: [id number] Author: Chintan Dempsey DPM Service: Podiatry Author Type: Physician Type: Operative Report Filed: 03/23/2018 8:05 AM Note Text: [facility]- Operative Report ROSA BELTRAN : 1935 AGE: 82 SEX: F [id number]: [facility] LOCATION: [id number] ATTENDING PHYSICIAN: LIZA STEVENSON) ASHA DATE OF PROCEDURE: 03/22/2018 SURGEON: Chintan Dempsey D.P.M. CARGO WORKER: Jimmy, PGY-3. ANESTHESIA: Local sedation. A total of 10 mL of 0.25% Marcaine plain. No tourniquet was used. PREOPERATIVE DIAGNOSIS(ES): Noted to be right leg cellulitis, nonhealing ulcer medial leg and lateral leg, venous stasis ulcer to the level fat, PVD, lymph edema, abscess, and PAD. POSTOPERATIVE DIAGNOSIS(ES): NAME OF OPERATION: INDICATIONS: ESTIMATED BLOOD LOSS: Less than 10 mL. COMPLICATIONS: None. INDICATION FOR SURGERY: This patient was admitted to the hospital for cellulitis infection of her right leg. We set her up for an incision and drainage of the right leg and excisional debridement in the OR. Went over alternatives, risks, complications, benefits of procedure. No guarantees were given. In the preoperative area, consent was signed. DISPOSITION: Vital signs stable. Stable to PACU. PROCEDURE: 1. Incision and drainage of the lateral wound. 2. Incision and drainage of the medial wound of the right leg. 3. Excisional debridement of the wound with the wound noted to be 10 x 5 x 0.4 post I and D on the lateral and on the right medial was noted to be 5 x 3 x 1 centimeter post I and D, for a total areas 65 square centimeters debrided into the level of fascia fat. DESCRIPTION OF PROCEDURE IN DETAIL: Under mild sedation, the patient was brought to the operating room and placed on operating table in supine position. Following administration of IV sedation, the patient had a block carried out over the ankle in the leg with 10 cc of 0.25% Marcaine plain. Next, the right foot and ankle were scrubbed, prepped, and draped in usual sterile fashion. Next, at this time, we directed our attention first to the medial wound. There was noted to be drainage purulence in the wound. It was noted to be on the medial aspect of the leg. At this time, we took a 15 blade, incised through the skin, through the fascia, and then extended the incision noted to be 5 cm in length. Once we did this, we then squeezed and drained out until no further fluid was coming out. Once this was completed, we then had a wound that was noted to be 5 x 3 x 1 cm deep. We then took a curette and then excisionally debrided to the level of fascia and did a sharp nonexcisional aggressive debridement with a curette until we got healthy bleeding tissue. Once this was done, we then pulse lavaged with 3000 mL normal saline. We packed the wound open with alginate, DryMax and 4x4s. Next, we went over to the lateral aspect of the leg, and we repeated the same exact way and the wound on the lateral aspect noted to be on the lateral calf. It was noted to be post using a 15 blade, and this was drained 10 x 5 x 0.5 cm deep post I and D. We then pulse lavaged with 3000 mL of normal saline and then took cultures. We did a sharp excisional nonselective aggressive debridement with a curette down to the level of fat and fascia. After the I and D, there was an area right in the middle that showed some necrotic fat that we had to go deeper with I and D. I did not see any pockets of pus or traveling up the peroneal tendon sheath. We did excisionally debride this area again and we then packed this with calcium alginate silver, DryMax, ABDs, 4x4s and then we put compression on the patient with 4 inch Ankit up for the foot to the ankle and then a 6 inch from the leg up to the knee, and then once this was completed, the patient tolerated the procedure and anesthesia well, and was transferred to the PACU. Vital signs stable. Vascular status intact to all aspects of the right foot and ankle. Following a period postop monitoring, the patient be readmitted back to the floor. We will continue wound care. She is to follow up with the [facility]. She is going to probably be ready for a graft, which we will probably have authorized outpatient and due at the Wound Center. Chintan Dempsey D.P.M. Podiatry RL:[id number] /[phone] cc: * CONSULT PROG Observed: 03/21/2018 Status: COMPLETED Source: [facility] 3:25 PM [facility] OTHER [facility]AMPUS REPOSITORY HNO ID: [id number] Author: Checo Kay MD Service: Infectious Disease Author Type: Physician Type: Consult Progress Note Filed: 03/21/2018 3:27 PM Note Text: INFECTIOUS DISEASE PROGRESS NOTE Patient Name: Rosa Beltran INTERVAL HISTORY: No fevers. R leg cultures w PsAG. WBC now normal. ROS checked in details. All qs answered. Patient Active Hospital Problem List: Leg ulcer, right, with fat layer exposed (HCC) (03/17/2018) ASSESSMENT: Right leg ulcers Mild surrounding Cellulitis of RLE PAD Prior cx with 02/15 MSSA and Proteus mirabilis COPD CAD Afib RA ? Plan --Continue Zosyn --Follow wound cx for PsAG MICs --Check ESR and CRP, 52 and 6 respectively. Will discuss w podiatry as XR negative for OM --wound care -- following MEDICATIONS: reviewed. Current hospital medications: docusate sodium 100 mg cap(s) (COLACE) 100 mg ORAL BID PRN piperacillin-tazobactam 3.375 g in dextrose (iso-osmotic) 50 mL (ZOSYN) 3.375 g INTRAVENOUS q 8 H warfarin 3 mg tab(s) (COUMADIN) 3 mg ORAL DAILY acetaminophen 1,000 mg tab(s) (TYLENOL) 1,000 mg ORAL q 6 H PRN gabapentin 300 mg cap(s) (NEURONTIN) 300 mg ORAL BID therapeutic multivitamin with iron (THERAGRAN-M) 1 tablet ORAL DAILY aspirin, enteric coated 81 mg tab(s) (ASPIRIN, ENTERIC COATED) 81 mg ORAL DAILY pantoprazole [address] 20 mg tab(s) (PROTONIX) 20 mg ORAL DAILY levothyroxine 100 mcg tab(s) (SYNTHROID) 100 mcg ORAL DAILY (6 AM) ondansetron orally disintegrating 4 mg tab(s) (ZOFRAN ODT) 4 mg ORAL q 6 H PRN ondansetron (PF) 4 mg injection (ZOFRAN) 4 mg INTRAVENOUS q 6 H PRN oxyCODONE-acetaminophen 5-325 mg 1 tablet (PERCOCET) 1 tablet ORAL q 8 H PRN perflutren lipid microspheres 1.1 mg/mL 1.3 mL injection (DEFINITY) 1.3 mL INTRAVENOUS DIRECTED PRN PHYSICAL EXAM: Vital signs: BP 113/57 Pulse 64 Temp 37.2 ?C (99 ?F) (Oral) Resp 16 Ht 162.6 cm (5' 4) Wt 93.5 kg (206 lb 2.1 oz) SpO2 96% BMI 35.38 kg/m? Temp (24hrs), Av.9 ?C (98.5 ?F), Min:36.4 ?C (97.5 ?F), Max:37.4 ?C (99.3 ?F) General: alert, oriented, NAD Lungs: bilaterally clear to auscultation Heart: regular rate and rhythm Abdomen: soft, non tender, non distended, BS+ Extremities: R leg wound w dressing and redness receeding No rashes No joint inflammation Neck supple Lines ok No CVAT Labs: Recent Labs 03/21/18 0411 03/20/18 0500 03/19/18 0453 WBC 5.63 -- -- HB 10.8* -- -- HCT 35.8* -- -- PLT 171 -- -- INR 2.3* 2.2* 2.4* NA 137 134* 135* K 4.6 4.2 4.3 CHLOR 97 95* 96* CO2 32* 30 30 BUN 37* 45* 44* CREAT 1.40* 1.65* 1.79* Microbiology data: reviewed Imaging data: reviewed Checo Kay MD [phone] 03/21/2018 3:26 PM US ARTERIAL PVR Observed: 03/21/2018 Status: F Source: [facility] 3:01 PM CLINIC OTHER CAMPUS REPOSITORY * * *Final Report* * * DATE OF EXAM: Mar 21 2018 3:01PM MEG 1107 - US ARTERIAL PVR LOWER / PROCEDURE REASON: Upper leg erythema, swelling, cellulitis suspected * * * * Physician Interpretation * * * * LOWER EXTREMITY ARTERIAL PVR Indication: Swelling and cellulitis Technique: Segmental systolic pressure measurements, air calibrated plethysmography, digital photoplethysmography and continuous wave Doppler analysis of the bilateral lower extremities was performed. Limitation: Patient unable to tolerate pressures on the right leg. Right calf completely bandaged due to open sores with infection. Unable to obtain Dopplers bilaterally. Only one thigh cuff could not be placed due to short stature and body habitus Segmental systolic pressure measurements (mm Hg): Right: Brachial: 116 Index Ankle (DP) 161 1.32 Left: Brachial: 122 Index Calf: Noncompressible Ankle (DP) 183 1.5 Pulse volume waveform analysis: Right: Severe blunting at the level of the low thigh and calf suggesting more proximal disease. Left: Moderate dampening at the level of the low thigh suggesting more proximal disease. Further blunting at the level of the ankle suggesting infrapopliteal disease. Digital photoplethysmography: Right: Flat tracing Left:Flat tracing Doppler waveforms: Right:] Relatively normal tracing from the right femoral artery, right popliteal and the right dorsalis pedis artery. Left:Relatively normal tracing from the right femoral artery, right popliteal and the right dorsalis pedis artery. IMPRESSION: Right: Very Limited assessment. Ankle-brachial index normal but based on PVRs there is significant disease suggested proximal to the low thigh level. Flattening of the tracing from the digit suggesting superimposed small vessel disease of the foot/ischemia/vasospasm. Left: Very Limited assessment. Noncompressible artery and therefore ankle-brachial index cannot be calculated. There is disease proximal to the low thigh as evidenced by moderate dampening of PVR at the low thigh level. Flattened tracing from the digit suggesting ischemia, vasospasm, small vessel disease of the foot. Stereotype Finisher: DWIGHT Transcribe Date/Time: Mar 21 2018 4:03P Dictated by : CARYN SUMMERS MD This examination was interpreted and the report reviewed and electronically signed by: CARYN SUMMERS MD on Mar 21 2018 4:08PM EST [id number] Observed: 03/21/2018 Status: COMPLETED Source: [facility] 2:42 PM [facility] OTHER CAMPUS REPOSITORY O ID: [id number] Author: Liza Barry Service: General Internal Medicine Author Type: Physician Type: Progress Notes Filed: 03/22/2018 2:09 PM Note Text: DEPARTMENT OF HOSPITAL MEDICINE PROGRESS NOTE SERVICE DATE: 03/21/2018 SERVICE TIME: 2:45 PM Hospital Medicine/Primary Attending: Liza Barry MD NIGHT AND WEEKEND COVERAGE: Nights: Please contact pager [phone]. Subjective INTERVAL HPI: pt seen and examined, comfortable MEDICATIONS: Reviewed Objective PHYSICAL EXAM: BP 113/57 Pulse 64 Temp (Src) 99 (Oral) Resp 16 Ht 5' 4 (1.63m) Wt 206 lb 2.1 oz (93.5kg) SpO2 96% BMI 35.36 kg/(m2). Physical Exam Performed GENERAL: Alert, no distress, cooperative SKIN: Skin color, texture, turgor normal. No rashes or lesions. LUNGS: Lungs clear to auscultation, Good diaphragmatic excursion CARDIAC: Normal S1 and S2; no rubs, murmurs, or gallops ABDOMEN: Abdomen soft, non-tender, BS normal, No masses or organomegaly EXTREMITIES: right lower extremity wrapped, right foot deformed, everted Lines, Drains, and Airways Line Peripheral 03/20/18 1634 Left Forearm 22 Gauge less than 1 day Drain Indwelling Urinary Catheter 03/17/18 1903 Vitale 20 Fr 3 days DATA: Diagnostic tests reviewed for today's visit: Most recent labs and imaging results. Recent Labs 03/21/18 0411 03/20/18 0500 03/19/18 0453 WBC 5.63 -- -- HB 10.8* -- -- PLT 171 -- -- INR 2.3* 2.2* 2.4* NA 137 134* 135* K 4.6 4.2 4.3 CO2 32* 30 30 BUN 37* 45* 44* CREAT 1.40* 1.65* 1.79* WSR -- -- 52* CRP -- -- 6.0* Assessment/Plan Active Problems: Right leg cellulitis Continue empiric abx For IANDD tomorrow with podiatry PVR studies pending AFib, Chronic Rate controlled Continue coumadin ,check inr daily Beta louann dc'ed in view of sinus pauses which have resolved PING Renal function improving slowly Continue to hold diuretics Pressure ulcers: Stage 3 pressure ulcer right lateral ankle, Stage I pressure ulcer ? left heel - present on admission Chronic diastolic heart failure Stable, compensated Medication and Non-Pharmacologic VTE Prophylaxis/Anticoagulants Anticoagulant AND Antiplatelet Medications Start Dose Route Frequency Ordered Stop 03/18/18 0900 aspirin, enteric coated 81 mg tab(s) (ASPIRIN, ENTERIC COATED) 81 mg ORAL DAILY 03/17/182017 -- 03/17/182029 warfarin 3 mg tab(s) (COUMADIN) 3 mg ORAL DAILY 03/17/182017 -- 03/17/182029 vte non-pharmacologic prophylaxis contraindicated (fl,oh) 03/17/182029 vte current anticoag therapy (fl,oh) VTE Prophylaxis: VTE prophylaxis appropriate Disposition: Home with [facility] Plan of care discussed with: Patient SIGNATURE: Liza Barry MD PATIENT NAME: Rosa Beltran DATE: March 21, 2018 TIME: 2:43 PM PAGER/CONTACT #: [phone] etx [phone] NURSING PROG Observed: 03/21/2018 Status: COMPLETED Source: [place] 12:43 PM [facility] OTHER CAMPUS REPOSITORY HNO ID: [id number] Author: Gay ParksRn) ELENA Lauren Service: (none) Author Type: Registered Nurse Type: Nursing Progress Note Filed: 03/21/2018 3:34 PM Note Text: Nursing Progress Note Patient Name: Rosa Beltran Patient Location: [place] [address] [address] Daily Note: 1243: Spoke to Dr Barry regarding pt being on coumadin and plan for surgery tomorrow. Stated to hold tonights dose and podiatry aware of pts current medications. 1249: message left for dr dempsey regarding pt current INR and being on coumadin. 1330: Spoke to Dr Dempsey regarding current INR. Hold dose tonight and okay for surgery tomorrow. This note was completed by: Gay Lauren, RN ALLIED HEALTH Observed: 03/21/2018 Status: COMPLETED Source: [place] 12:30 PM [facility] OTHER CAMP[facility] REPOSITORY HNO ID: [id number] Author: Svetlana ParksRn) Carlos, RN Service: Ostomy Author Type: Registered Nurse Type: Allied Health Filed: 03/21/2018 1:38 PM Note Text: Patient seen today and was told podiatry resident had been in earlier and changed her dressings. Plan for OR debridement tomorrow. Deferred visit for today. Svetlana Gonzalez RN CWOCN CONSULT PROG Observed: 03/21/2018 Status: COMPLETED Source: [facility] 10:08 AM [facility] OTHER CAMPUS REPOSITORY HNO ID: [id number] Author: Jessica Yeager Service: Podiatry Author Type: Resident Type: Consult Progress Note Filed: 03/21/2018 10:15 AM Note Text: CONSULT PROGRESS NOTE SERVICE DATE: 03/21/2018 SERVICE TIME: 900 CONSULTING SERVICE: POD Surg Subjective INTERVAL HPI: Pt seen and examined bedside. Pain to RLE, but controlled. Denies N/V/F/C. SHe Believes her wounds are draining more. Current hospital medications: docusate sodium 100 mg cap(s) (COLACE) 100 mg ORAL BID PRN piperacillin-tazobactam 3.375 g in dextrose (iso-osmotic) 50 mL (ZOSYN) 3.375 g INTRAVENOUS q 8 H warfarin 3 mg tab(s) (COUMADIN) 3 mg ORAL DAILY acetaminophen 1,000 mg tab(s) (TYLENOL) 1,000 mg ORAL q 6 H PRN gabapentin 300 mg cap(s) (NEURONTIN) 300 mg ORAL BID therapeutic multivitamin with iron (THERAGRAN-M) 1 tablet ORAL DAILY aspirin, enteric coated 81 mg tab(s) (ASPIRIN, ENTERIC COATED) 81 mg ORAL DAILY pantop[address]ole [address] 20 mg tab(s) (PROTONIX) 20 mg ORAL DAILY levothyroxine 100 mcg tab(s) (SYNTHROID) 100 mcg ORAL DAILY (6 AM) ondansetron orally disintegrating 4 mg tab(s) (ZOFRAN ODT) 4 mg ORAL q 6 H PRN ondansetron (PF) 4 mg injection (ZOFRAN) 4 mg INTRAVENOUS q 6 H PRN oxyCODONE-acetaminophen 5-325 mg 1 tablet (PERCOCET) 1 tablet ORAL q 8 H PRN perflutren lipid microspheres 1.1 mg/mL 1.3 mL injection (DEFINITY) 1.3 mL INTRAVENOUS DIRECTED PRN Objective PHYSICAL EXAM: Physical Exam Performed: Vasc: DP/PT Non-palpable 2/2 +2 edema Neuro: Intact Derm: Right lateral leg ulceration 5.0x7.0x 0.2cm. Mild serousanginous drainage, no malodor, 50% granular, 50%fibrotic base. Jennifer wound erythema, diffuse edema LE, deformity. Right medial wound 3.0x3.0x0.9cm.75% fibrotic base, increased serosang drainage Musc: m/s +4/5 BP 133/67 Pulse 55 Temp (Src) 97.5 (Oral) Resp 18 Ht 5' 4 (1.63m) Wt 206 lb 2.1 oz (93.5kg) SpO2 96% BMI 35.36 kg/(m2). DATA: Diagnostic tests reviewed for today's visit: Most recent labs and imaging results. CBC, Coags, BMP, Mg, Phos Recent Labs 03/21/18 0411 03/20/18 0500 03/19/18 0453 WBC 5.63 -- -- HB 10.8* -- -- HCT 35.8* -- -- PLT 171 -- -- INR 2.3* 2.2* 2.4* NA 137 134* 135* K 4.6 4.2 4.3 CHLOR 97 95* 96* CO2 32* 30 30 BUN 37* 45* 44* CREAT 1.40* 1.65* 1.79* GLUC 88 98 76 CA 8.7 8.3* 8.6 MG 2.0 1.8 1.8 Impression/Recommendations PAD COPD CAD Afib RA Right leg ulcerations Mild Cellulitis of RLE ? Pt seen and examined bedside, ulcerations stable, superficial, cellultis, with diffuse LE edema, increased drainage Follow cultures Follow ID recs for abx recs Xrays neg for OM Offload heels Need compression NPO ordered for midnight, OR tomorrow for ID RLE SIGNATURE: Jessica Yeager DPM PATIENT NAME: Rosa Beltran DATE: March 21, 2018 TIME: 10:08 AM PAGER: PLAN OF CARE Observed: 03/21/2018 Status: COMPLETED Source: [facility] 9:30 AM [facility] OTHER CAMPUS REPOSITORY HNO ID: [id number] Author: Maritza Hammer) ELENA Cadet Service: Case Management Author Type: Registered Nurse Type: Plan of Care Filed: 03/21/2018 10:32 AM Note Text: MULTIDISCIPLINARY ROUNDS SERVICE DATE: 03/21/2018 ADMISSION DATE: 03/17/2018 SERVICE TIME: 9:30 AM ANTICIPATED D/C DATE: TBD Problem List: ACTIVE PROBLEM LIST Gastroesophageal Reflux Disease Without Esophagitis Chronic Atrial Fibrillation (Hcc) Pure Hypercholesterolemia Hypertension Acquired Hypothyroidism Cad (Coronary Artery Disease) Primary Osteoarthritis Involving Multiple Joints Lymphedema of Both Lower Extremities Mouth Dryness Muscular Weakness Dorsalgia Stented Coronary Artery Gastric Bypass Status for Obesity Bilateral Leg Ulcer (Hcc) Polyneuropathy (Hcc) Cecal Ulcer Respiratory Failure With Hypoxia (Hcc) 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 Barry Needs Discussed on Rounds: Plan of Care Anticipated Discharge Disposition: Home with Home Health Care Last Vitals: BP 133/67 Pulse 55 Temp (Src) 97.5 (Oral) Resp 18 Ht 5' 4 (1.63m) Wt 206 lb 2.1 oz (93.5kg) SpO2 96% BMI 35.36 kg/(m2). EMR reviewed. Plan for OR for IANDD of RLE today. ID following. Wound cultures pending. Patient currently refusing SNF. Plans on returning hoe with resumption of [facility]. Nursing: Cardiac Intervention(s) Plan: Monitor and Assess Vital Signs and IANDO Report Significant Changes to LIP;Monitor Rhythm Strips and EKG and Report Changes to LIP;Monitor Labs Cardiac Goals/Outcomes: Patient Optimal Cardiac Function Evidence by: Vital Signs Stable, Control Chest Pain, Adequate Oxygenation, Cardiac Goal Target Achievement Date: 03/23/18 Elimination Bladder/Bowel Intervention(s) Plan: Monitor Fluids and Electrolytes;Assist to Commode or Bathroom (Targeting Toileting);Provide Privacy Elimination Bladder/Bowel Goals/Outcomes: Maintain Skin Integrity Elimination Bladder/Bowel Goal Target Achievement Date: 03/23/18Mobility Intervention(s) Plan: Pain Management;Position to Optimal Function;Assist with Ambulation and Transfers;[place] Safety Measures;Pressure Ulcer Prevention Mobility Patient/Family Goals: Patient Free of Complications such as Skin Breakdown, Contractures, Loss of Joint Mobility During Hospitalization Mobility Goal Target Achievement Date: 03/23/18 Pain Intervention(s) Plan: Pain Assessment, Management, Reassessment Per Scoring Tool Pain Goals/Outcomes: Decrease in Pain Level per Scoring Tool Pain Goal Target Achievement Date: 03/23/18 Respiratory Alteration Intervention(s) Plan: Assess and Monitor Respiratory Status Respiratory Alteration Goals/Outcomes: Decrease of Respiratory Distress Respiratory Goal Target Achievement Date: 03/23/18 Safety Intervention(s) Plan: Employ Safe Mobility Safety Goals/Outcomes: Maintain Patient Safety Safety Goal Target Achievement Date: 03/23/18kin Intervention(s) Plan: Assess and Document Skin Condition per Protocol Skin Goals/Outcomes: Patient's Skin Integrity Maintained or Improved Skin Goal Target Achievement Date: 03/23/18 DOCUMENTED BY: Maritza Cadet RN PATIENT NAME: Rosa Beltran DATE: March 21, 2018 TIME: 10:29 AM CSN: [id number] CBC AND DIFFERENTIAL Collected: 03/21/2018 Status: F Source: [facility] 4:11 AM [facility] OTHER CAMPUS REPOSITORY TYPE CODE TESTS RESULT OUT OF REFERENCE UNITS RANGE LAB WBC 3.70-11.00 k/uL WBC 5.63 LAB RBC 3.90-5.20 m/uL RBC 3.90 LAB HGB 11.5-15.5 g/dL Low Hemoglobin 10.8 LAB HCT 36.0-46.0 % Low Hematocrit 35.8 LAB MCV 80.0-100.0 fL MCV 91.8 LAB MCH 26.0-34.0 pG MCH 27.7 LAB MCHC 30.5-36.0 g/dL Low MCHC 30.2 LAB RDWCV 11.5-15.0 % RDW-CV High 16.3 LAB PLTCT 150-400 k/uL Platelet Count 171 LAB MPV 9.0-12.7 fL MPV 11.2 LAB ANEUT % Neut% 55.5 LAB AANEUT 1.45-7.50 k/uL Abs Neut 3.12 LAB ALYMP % Lymph% 26.1 LAB AALYMP 1.00-4.00 k/uL Abs Lymph 1.47 LAB AMONO % [place]% 11.7 LAB AAMONO <0.87 k/uL Abs [place] 0.66 LAB AEOS % Eosin% 6.2 LAB AAEOS <0.46 k/uL Abs Eosin 0.35 LAB ABASO % Baso% 0.5 LAB AABASO <0.11 k/uL Abs Baso 0.03 Performed By: #### CBCDIF, PT, BMP, MG1 #### [facility] [address] [place] [address] PROTIME Collected: 03/21/2018 Status: F Source: [place] 4:11 AM [facility] OTHER CAMPUS REPOSITORY TYPE CODE TESTS RESULT OUT OF RANGE REFERENCE UNITS LAB PSEC 9.7-13.0 sec High PT Sec 22.9 LAB INR 0.9-1.3 High PT INR 2.3 Result Comment: Vitamin K Antagonist (VKA) Therapeutic Range: INR 2 to 3 (Target INR of 2.5) Note: For patients treated with VKA drugs, such as warfarin, the [place] [employer] 2012 Guideline recommends a therapeutic INR range of 2 to 3 (target INR of 2.5). This recommendation includes high-risk patients with antiphospholipid syndrome with previous arterial or venous thromboembolism, current-generation mechanical or bioprosthetic aortic heart valve replacement. Note: Patients with mechanical aortic valve replacement and additional risk factors for thromboembolic events (atrial fibrillation, previous thromboembolism, LV dysfunction, hypercoagulable conditions) or an older generation mechanical AVR (i.e., ball in-Cage) or any mechanical MVR should have a INR therapeutic range of 2.5 to 3.5 (target INR of 3). Shweta GH, et al. Chest 2012, 141:7S-47S Genevieve ESTRADA et al. [facility] 2017, 70: 252-289 Performed By: #### CBCDIF, PT, BMP, MG1 #### [facility] [address] [facility] [phone] BASIC METABOLIC PANL Collected: 03/21/2018 Status: F Source: [facility] 4:11 AM [facility] OTHER CAMPUS REPOSITORY TYPE CODE TESTS RESULT OUT OF REFERENCE UNITS RANGE LAB GLU 74-99 mg/dL Glucose 88 Result Comment: The [place] Diabetes Association (ADA) provides guidance for cutoff values for fasting glucose and random glucose. The ADA defines fasting as no caloric intake for at least 8 hours. Fas ting plasma glucose results between 100 to 125 mg/dL indicate increased risk for diabetes (prediabetes). Fasting plasma glucose results greater than or equal to 126 mg/dL meet the criteria for diagnosis of diabetes. In the absence of unequivocal hyperglycemia, results should be confirmed by repeat testing. In a patient with classic symptoms of hyperglycemia or hyperglycemic crisis, random plasma glucose results greater than or equal to 200 mg/dL meet the criteria for diagnosis of diabetes. Reference: Standards of Medical Care in Diabetes 2016, [place] [employer] Association. Diabetes Care. 2016.39(Suppl 1). LAB BUN 7-21 mg/dL BUN High 37 LAB CRET 0.58-0.96 mg/dL Creatinine High 1.40 LAB NA 136-144 mmol/L Sodium 137 LAB K 3.7-5.1 mmol/L Potassium 4.6 LAB CL 97-105 mmol/L Chloride 97 LAB CO2 22-30 mmol/L CO2 High 32 LAB AGAP 9-18 mmol/L Low Anion Gap 8 LAB CA 8.5-10.2 mg/dL Calcium, Total 8.7 LAB GFRAA eGFR- Amer. 44 LAB GFRNAA . eGFR-All Other Races 36 Result Comment: eGFR (Estimated GFR) Units of measure: mL/min/1.73 meters squared eGFR is derived from the reexpressed MDRD Study equation using the following parameters: serum creatinine, age, gender and race. The creatinine assay has been calibrated to be traceable to IDMS. An eGFR <60 mL/min/1.73m2 for >3 months is consistent with chronic kidney disease. Refer to KDOQI guidelines for clinical interpretation. In patients with unstable renal function, e.g. those with acute kidney injury, the eGFR may not accurately reflect actual GFR. Performed By: #### CBCDIF, PT, BMP, MG1 #### [facility] [address] [place] [address] MAGNESIUM Collected: 03/21/2018 Status: F Source: [facility] 4:11 AM [facility] REPOSITORY TYPE CODE TESTS RESULT OUT OF REFERENCE UNITS RANGE LAB MG 1.7-2.3 mg/dL Magnesium 2.0 Performed By: #### CBCDIF, PT, BMP, MG1 #### [facility] [address] [place] [address] PROGRESS Observed: 03/21/2018 Status: COMPLETED Source: [place] 1:09 AM [facility] REPOSITORY HNO ID: [id number] Author: Timothy (Rn) ELENA Esposito Service: Nursing Author Type: Registered Nurse Type: Progress Notes Filed: 03/21/2018 1:10 AM Note Text: Nursing Progress Note Vital Historic Sites Supervisor Assessment Note Patient Name: Rosa Beltran Patient [facility]: [facility]0205/[id number] Patient Vitals in the past 4 hrs: 03/20/18 2327, BP:115/69, Temp:37.2 ?C (99 ?F), Temp src:Oral, Pulse:(!) 57, Resp:18, SpO2:94 % Status Change Related to: Cardiac Issues (See Nursing Clinical Assessment For Details) The Following People Were Notified: Attending Physician Caregiver/Provider: Dr. Mercado. See Documentation Related to: Continuous Monitoring Additional Comments : This note was completed by: Timothy Esposito RN NURSING PROG Observed: 03/21/2018 Status: COMPLETED Source: [place] 1:07 AM [facility] OTHER [place] REPOSITORY HNO ID: [id number] Author: Timothy (Rn) ELENA Esposito Service: Nursing Author Type: Registered Nurse Type: Nursing Progress Note Filed: 03/21/2018 1:07 AM Note Text: Nursing Progress Note Patient Name: Rosa Beltran Patient Location: [place] [id number] Daily Note: 0107 LIP paged r/t order clarification. This note was completed by: Timothy Esposito RN CNCO Observed: 03/21/2018 Status: COMPLETED Source: [place] 12:00 AM [facility] OTHER [place] REPOSITORY Letter Text Rosa Beltran March 21, 2018 [facility] [address] [place] [id number] 03/21/2018 [facility]# [id number] Rosa Beltran [address] [place] [id number] Dear Ms. Beltran: We have been unsuccessful in reaching you by phone. Please call our office at for further instructions. Thank you. Sincerely, Cardiology CASE MANAGEM Observed: 03/20/2018 Status: COMPLETED Source: [place] 2:50 PM [facility] OTHER CAMPUS REPOSITORY HNO ID: [id number] Author: Maritza (Rn) ELENA Cadet Service: Case Management Author Type: Registered Nurse Type: Care Mgt Progress Note Filed: 03/20/2018 2:54 PM Note Text: CARE MANAGEMENT PROGRESS NOTE SERVICE DATE: 03/20/2018 SERVICE TIME: 2:51 PM LOS: 3 days Needs Prior to Discharge: Home Care Order;To Be Determined;Other: See Comment;Wound Care (Medical Clearance) EMR reviewed. RN CM met with patient at bedside to discuss the discharge plan. Physical Therapy is recommending SNF. Patient is declining SNF at this time and indicates that she plans on returning home with [facility] for wound care. Patient indicates that she does not feel she needs PT/OT at home. Patient also reports that she wears 2-3 liters of O2 PRN and has a portable O2 tank available if needed. CM assigned will continue to follow. SIGNATURE: Maritza Cadet RN PATIENT NAME: Rosa Beltran DATE: March 20, 2018 TIME: 2:51 PM PAGER/CONTACT #: [phone] MRI LOWER LEG WO Observed: 03/20/2018 Status: F Source: [facility] IVCON RT 1:13 PM [facility] REPOSITORY * * *Final Report* * * DATE OF EXAM: Mar 20 2018 1:13PM [facility] 0225 - MRI LOWER LEG WO IVCON RT / PROCEDURE REASON: Osteomyelitis, tib/fib * * * * Physician Interpretation * * * * PROCEDURE: MRI LOWER LEG WO IVCON RT INDICATION: Osteomyelitis, tib/fib TECHNIQUE: Multi-echo, multiplanar images of the right lower leg without contrast. COMPARISON: None FINDINGS: There is susceptibility artifact from a total knee arthroplasty and from lateral plate and screw fixation in the distal fibula. There is an apparent soft tissue wound laterally adjacent to the distal fibula. No soft tissue fluid collection is seen to suggest abscess. Assessment of marrow and cortical signal within the distal fibula is not possible due to artifact from internal fixation. I cannot accurately evaluate for the presence or absence of osteomyelitis. No abnormal marrow signal or periostitis is seen cephalad or caudal to the hardware. There is deformity of the distal tibia consistent with remote healed fracture. No bone marrow signal abnormality is evident. There is diffuse subcutaneous edema/cellulitis. No deep fascial or muscle edema or fluid is seen. IMPRESSION: 1. Limited evaluation for the presence or absence of osteomyelitis in the distal fibula due to susceptibility artifact from hardware. 2. Diffuse soft tissue edema/cellulitis. Stereotype Finisher: PSCVerónica Transcribe Date/Time: Mar 20 2018 2:10P Dictated by : BENNIE VELASQUEZ MD This examination was interpreted and the report reviewed and electronically signed by: BENNIE VELASQUEZ MD on Mar 20 2018 2:22PM EST [id number] PROGRESS Observed: 03/20/2018 Status: COMPLETED Source: [facility] 12:58 PM [facility] OTHER CAMPUS REPOSITORY HNO ID: [id number] Author: Liza Stevenson) Asha Service: General Internal Medicine Author Type: Physician Type: Progress Notes Filed: 03/20/2018 1:08 PM Note Text: DEPARTMENT OF HOSPITAL MEDICINE PROGRESS NOTE SERVICE DATE: 03/20/2018 SERVICE TIME: 12:58 PM Hospital Medicine/Primary Attending: Liza Barry MD NIGHT AND WEEKEND COVERAGE: Nights: Please contact pager [phone]. Subjective INTERVAL HPI: pt seen and examined, comfortable MEDICATIONS: Reviewed Objective PHYSICAL EXAM: BP 112/54 Pulse 58 Temp (Src) 98.6 (Oral) Resp 16 Ht 5' 4 (1.63m) Wt 199 lb 4.7 oz (90.4kg) SpO2 100% BMI 34.19 kg/(m2). Physical Exam Performed GENERAL: Alert, no distress, cooperative SKIN: Skin color, texture, turgor normal. No rashes or lesions. LUNGS: Lungs clear to auscultation, Good diaphragmatic excursion CARDIAC: Normal S1 and S2; no rubs, murmurs, or gallops ABDOMEN: Abdomen soft, non-tender, BS normal, No masses or organomegaly EXTREMITIES: right lower extremity wrapped, right foot deformed, everted Lines, Drains, and Airways Line Peripheral 03/19/18 2200 Assessment Short Right Forearm 22 Gauge less than 1 day Drain Indwelling Urinary Catheter 03/17/18 1903 Vitale 20 Fr 2 days DATA: Diagnostic tests reviewed for today's visit: Most recent labs and imaging results. Recent Labs 03/20/18 0500 03/19/18 0453 03/18/18 0449 03/17/18 1540 WBC -- -- 8.93 6.75 HB -- -- 10.5* 11.9 PLT -- -- 205 227 INR 2.2* 2.4* 2.3* 2.3* NA 134* 135* 137 136 K 4.2 4.3 4.4 4.2 CO2 30 30 28 27 BUN 45* 44* 36* 36* CREAT 1.65* 1.79* 1.14* 1.06* AST -- -- -- 19 ALT -- -- -- 8 TBILI -- -- -- 0.4 ALKPHOS -- -- -- 89 WSR -- 52* 52* -- CRP -- 6.0* -- -- LACT -- -- -- 1.1 Assessment/Plan Active Problems: Right leg cellulitis Continue empiric abx ID eval Podiatry input appreciated, local wound care PVR studies pending CRP 6 AFib, Chronic Rate controlled Continue coumadin ,check inr daily Beta louann dc'ed in view of sinus pauses which have resolved PING ? 2/2 volume depletion from diuresis Monitor renal function ANKIT and diuretics held Will give 1/2L of 1/2NS today and recheck renal function in am Medication and Non-Pharmacologic VTE Prophylaxis/Anticoagulants Anticoagulant AND Antiplatelet Medications Start Dose Route Frequency Ordered Stop 03/18/18 0900 aspirin, enteric coated 81 mg tab(s) (ASPIRIN, ENTERIC COATED) 81 mg ORAL DAILY 03/17/182017 -- 03/17/182029 warfarin 3 mg tab(s) (COUMADIN) 3 mg ORAL DAILY 03/17/182017 -- 03/17/182029 vte non-pharmacologic prophylaxis contraindicated (ak,ma) 03/17/182029 vte current anticoag therapy ([place]) VTE Prophylaxis: VTE prophylaxis appropriate Disposition: Home with [facility] Plan of care discussed with: Patient SIGNATURE: Liza Barry MD PATIENT NAME: Rosa Beltran DATE: March 20, 2018 TIME: 12:58 PM PAGER/CONTACT #: [phone] etx [phone] CONSULT PROG Observed: 03/20/2018 Status: COMPLETED Source: [facility] 10:45 AM [facility] OTHER CAMPUS REPOSITORY HNO ID: [id number] Author: Checo Kay MD Service: Infectious Disease Author Type: Physician Type: Consult Progress Note Filed: 03/20/2018 1:26 PM Note Text: INFECTIOUS DISEASE PROGRESS NOTE Patient Name: Rosa Beltran INTERVAL HISTORY: No fevers. R leg cultures are pending. WBC now normal. ROS checked in details. All qs answered. Patient Active Hospital Problem List: Leg ulcer, right, with fat layer exposed (HCC) (03/17/2018) ASSESSMENT: Right leg ulcers Mild surrounding Cellulitis of RLE PAD Prior cx with 02/15 MSSA and Proteus mirabilis COPD CAD Afib RA ? Plan --Continue Zosyn --Off Vancomycin now --Follow wound cx, had MSSA in prior cultures --Check ESR and CRP, 52 and 6 respectively. Will discuss w podiatry as XR negative for OM --Podiatry evaluation for IANDD MEDICATIONS: reviewed. Current hospital medications: piperacillin-tazobactam 3.375 g in dextrose (iso-osmotic) 50 mL (ZOSYN) 3.375 g INTRAVENOUS q 8 H warfarin 3 mg tab(s) (COUMADIN) 3 mg ORAL DAILY acetaminophen 1,000 mg tab(s) (TYLENOL) 1,000 mg ORAL q 6 H PRN gabapentin 300 mg cap(s) (NEURONTIN) 300 mg ORAL BID therapeutic multivitamin with iron (THERAGRAN-M) 1 tablet ORAL DAILY aspirin, enteric coated 81 mg tab(s) (ASPIRIN, ENTERIC COATED) 81 mg ORAL DAILY pantoprazole DR 20 mg tab(s) (PROTONIX) 20 mg ORAL DAILY levothyroxine 100 mcg tab(s) (SYNTHROID) 100 mcg ORAL DAILY (6 AM) ondansetron orally disintegrating 4 mg tab(s) (ZOFRAN ODT) 4 mg ORAL q 6 H PRN ondansetron (PF) 4 mg injection (ZOFRAN) 4 mg INTRAVENOUS q 6 H PRN oxyCODONE-acetaminophen 5-325 mg 1 tablet (PERCOCET) 1 tablet ORAL q 8 H PRN perflutren lipid microspheres 1.1 mg/mL 1.3 mL injection (DEFINITY) 1.3 mL INTRAVENOUS DIRECTED PRN PHYSICAL EXAM: Vital signs: BP 107/58 Pulse (!) 56 Temp 36.4 ?C (97.5 ?F) (Oral) Resp 16 Ht 162.6 cm (5' 4) Wt 90.4 kg (199 lb 4.7 oz) SpO2 100% BMI 34.21 kg/m? Temp (24hrs), Av.4 ?C (97.6 ?F), Min:36.3 ?C (97.3 ?F), Max:36.6 ?C (97.9 ?F) General: alert, oriented, NAD Lungs: bilaterally clear to auscultation Heart: regular rate and rhythm Abdomen: soft, non tender, non distended, BS+ Extremities: R leg wound w dressing and redness receeding No rashes No joint inflammation Neck supple Lines ok No CVAT Labs: Recent Labs 03/20/18 0500 03/19/18 0453 03/18/18 0449 03/17/18 1540 WBC -- -- 8.93 6.75 HB -- -- 10.5* 11.9 HCT -- -- 35.0* 39.5 PLT -- -- 205 227 INR -- 2.4* 2.3* 2.3* APTT -- -- -- 39.4* NA 134* 135* 137 136 K 4.2 4.3 4.4 4.2 CHLOR 95* 96* 100 99 CO2 30 30 28 27 BUN 45* 44* 36* 36* CREAT 1.65* 1.79* 1.14* 1.06* Microbiology data: reviewed Imaging data: reviewed Checo Kay MD Pager: Date of service: 03/20/2018 Time of service: 10:46 AM This note is not final until Authenticated by responsible provider. BASIC METABOLIC PANL Collected: 03/20/2018 Status: F Source: [facility] 5:00 AM CLINIC OTHER CAMPUS REPOSITORY TYPE CODE TESTS RESULT OUT OF REFERENCE UNITS RANGE LAB GLU 74-99 mg/dL Glucose 98 Result Comment: The [place] Diabetes [employer] (ADA) provides guidance for cutoff values for fasting glucose and random glucose. The ADA defines fasting as no caloric intake for at least 8 hours. Fas ting plasma glucose results between 100 to 125 mg/dL indicate increased risk for diabetes (prediabetes). Fasting plasma glucose results greater than or equal to 126 mg/dL meet the criteria for diagnosis of diabetes. In the absence of unequivocal hyperglycemia, results should be confirmed by repeat testing. In a patient with classic symptoms of hyperglycemia or hyperglycemic crisis, random plasma glucose results greater than or equal to 200 mg/dL meet the criteria for diagnosis of diabetes. Reference: Standards of Medical Care in Diabetes 2016, [place] [employer]. Diabetes Care. 2016.39(Suppl 1). LAB BUN 7-21 mg/dL BUN High 45 LAB CRET 0.58-0.96 mg/dL Creatinine High 1.65 LAB NA 136-144 mmol/L Low Sodium 134 LAB K 3.7-5.1 mmol/L Potassium 4.2 LAB CL 97-105 mmol/L Low Chloride 95 LAB CO2 22-30 mmol/L CO2 30 LAB AGAP 9-18 mmol/L Anion Gap 9 LAB CA 8.5-10.2 mg/dL Low Calcium, Total 8.3 LAB GFRAA eGFR- Amer. 36 LAB GFRNAA . eGFR-All Other Races 30 Result Comment: eGFR (Estimated GFR) Units of measure: mL/min/1.73 meters squared eGFR is derived from the reexpressed MDRD Study equation using the following parameters: serum creatinine, age, gender and race. The creatinine assay has been calibrated to be traceable to IDMS. An eGFR <60 mL/min/1.73m2 for >3 months is consistent with chronic kidney disease. Refer to KDOQI guidelines for clinical interpretation. In patients with unstable renal function, e.g. those with acute kidney injury, the eGFR may not accurately reflect actual GFR. Performed By: #### BMP, MG1 #### [facility] [address] [place], [place] [phone] MAGNESIUM Collected: 03/20/2018 Status: F Source: [facility] 5:00 AM CLINIC OTHER CAMPUS REPOSITORY TYPE CODE TESTS RESULT OUT OF REFERENCE UNITS RANGE LAB MG 1.7-2.3 mg/dL Magnesium 1.8 Performed By: #### BMP, MG1 #### [facility] [address] [place], [place] [phone] PROTIME Collected: 03/20/2018 Status: F Source: [facility] 5:00 AM [facility] OTHER CAMPUS REPOSITORY TYPE CODE TESTS RESULT OUT OF RANGE REFERENCE UNITS LAB PSEC 9.7-13.0 sec High PT Sec 22.5 LAB INR 0.9-1.3 High PT INR 2.2 Result Comment: Vitamin K Antagonist (VKA) Therapeutic Range: INR 2 to 3 (Target INR of 2.5) Note: For patients treated with VKA drugs, such as warfarin, the [place] [employer] 2012 Guideline recommends a therapeutic INR range of 2 to 3 (target INR of 2.5). This recommendation includes high-risk patients with antiphospholipid syndrome with previous arterial or venous thromboembolism, current-generation mechanical or bioprosthetic aortic heart valve replacement. Note: Patients with mechanical aortic valve replacement and additional risk factors for thromboembolic events (atrial fibrillation, previous thromboembolism, LV dysfunction, hypercoagulable conditions) or an older generation mechanical AVR (i.e., ball in-Cage) or any mechanical MVR should have a INR therapeutic range of 2.5 to 3.5 (target INR of 3). Shweta GH, et al. Chest 2012, 141:7S-47S Genevieve RA, et al. [facility] 2017, 70: 252-289 Performed By: #### PT #### [facility] [address] [place] [address] PROGRESS Observed: 03/19/2018 Status: COMPLETED Source: [place] 6:15 PM [facility] OTHER CAMPUS REPOSITORY HNO ID: [id number] Author: Sydnee (Rn) ELENA Bowles Service: (none) Author Type: Registered Nurse Type: Progress Notes Filed: 03/19/2018 6:16 PM Note Text: Nursing Progress Note Vital Historic Sites Supervisor Assessment Note Patient Name: Rosa Beltran Patient Location: [place] [id number] Patient Vitals in the past 4 hrs: 03/19/18 1800, SpO2:98 % 03/19/18 1747, BP:98/60, Temp:36.5 ?C (97.7 ?F), Temp src:Oral, Pulse:(!) 56, Resp:18, SpO2:88 % 03/19/18 1530, Resp:18 03/19/18 1500, BP:80/50 03/19/18 1457, BP:(!) 86/49, Temp:36.4 ?C (97.5 ?F), Temp src:Oral, Pulse:(!) 54, Resp:18, SpO2:93 % Status Change Related to: Other Issues (See Nursing Clinical Assessment For Details) The Following People Were Notified: Hospitalist/Laborist Caregiver/Provider: See Documentation Related to: IV Therapy Additional Comments : Pt. started on IV Therapy. No further orders at this time. aware of patients VS. This note was completed by: Sydnee Bowles RN WOUND Observed: 03/19/2018 Status: F Source: [place] CULTURE/STAIN 5:00 PM [facility] REPOSITORY Sp. Request/Comment: - Eswab Specimen received in sterile container. Smear Result - Rare Gram positive cocci --> ABNORMAL ALERT Rare Polymorphonuclear leukocytes Culture Result - Moderate Pseudomonas aeruginosa --> ABNORMAL ALERT Moderate --> ABNORMAL ALERT Enterococcus faecalis --> ABNORMAL ALERT Cephalosporins, clindamycin, and TMP-SMX are not effecti ve for the treatment of enterococcal infections. --> ABNORMAL ALERT ORGANISM: Pseudomonas aeruginosa METHOD: Minimum inhibitory concentration(Vitek) Antibiotic Interp THEO Status Gentamicin SUSCEPTIBLE <=1 F Ciprofloxacin SUSCEPTIBLE <=0.25 F Cefepime SUSCEPTIBLE 2 F Piperacillin/Tazobac SUSCEPTIBLE 8 F Meropenem SUSCEPTIBLE <=0.25 F ORGANISM: Enterococcus faecalis METHOD: Minimum inhibitory concentration(Vitek) Antibiotic Interp THEO Status Ampicillin SUSCEPTIBLE <=2 F Vancomycin SUSCEPTIBLE 2 F Performed By: #### WCUL #### [facility] [address] [place], [place] [address] NUTRITION Observed: 03/19/2018 Status: COMPLETED Source: [place] 2:03 PM [facility] REPOSITORY HNO ID: [id number] Author: Deborah Colin Service: Nutrition Therapy Author Type: Registered Dietitian Type: Nutrition Filed: 03/19/2018 2:08 PM Note Text: NUTRITION THERAPY NOTE SERVICE DATE: 03/19/2018 SERVICE TIME: 1035 Anthropometrics: Height: 162.6 cm (5' 4) Current Weight: Weight: 93 kg (205 lb) Patient was unsure of her dry weight; currently with generalized edema Date: Wt: 03/17/2018 93 kg (205 lb) 03/06/2018 93 kg (205 lb) 02/03/2018 95.7 kg (211 lb) 01/06/2018 93.4 kg (206 lb) 12/19/2017 91.3 kg (201 lb 4.5 oz) 09/16/2017 93.4 kg (206 lb) 03/07/2017 90.3 kg (199 lb) Body mass index is 35.19 kg/m?. 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 No Allergies: ALLERGIES No Known Allergies Reason for Visit: Normal appetite reported No issues chewing, swallowing, nausea or emesis reported. Nursing Admission Assessment Malnutrition Score Tool: 2 Plan of Care: Recommendation Reviewed current labs and physician progress notes Will follow up again within 5 days or as consulted Discharge Plan: Home on heart healthy diet MNT Billing Type: Initial Assess/15 min 1 unit SIGNATURE: Deborah Colin RD PATIENT NAME: Rosa Beltran DATE: March 19, 2018 TIME: 2:03 PM PROGRESS Observed: 03/19/2018 Status: COMPLETED Source: [facility] 1:39 PM CLINIC OTHER CAMPUS REPOSITORY O ID: [id number] Author: Gallito Clarke Service: Hospital Medicine Author Type: Physician Type: Progress Notes Filed: 03/19/2018 3:22 PM Note Text: HOSPITAL MEDICINE PROGRESS NOTE Name: Rosa Beltran SERVICE DATE: 03/19/2018 SERVICE TIME: 1:39 PM LOCATION / ROOM: [facility]0205/[id number] Hospital Medicine/Primary Attending: Gallito Clarke MD NIGHT COVERAGE BETWEEN 5.30P-7.30A Page [id number] ASSESSMENT AND PLAN Active Hospital Problems Diagnosis - Leg ulcer, right, with fat layer exposed (HCC) Infected Leg Ulcers with cellulitis: Has no features of sepsis WBC normal XR Rt Ankle- No evidence of fracture or dislocation. No plain film findings of osteomyelitis.Deformity of distal right tibia and fibula and right hind foot, consistent with remote trauma, post-operative and degenerative change - Started on Vanc and Zosyn, but ID Dc vanco. - ESR/CRP elevated, will get MRI for osteo eval. -wound cultures sent and are pending. BCx negative to date. - Needs wound debridement - Consulted podiatry - wound care - was on IV lasix for leg swelling but due to ping held -wound care follow up ? PING -likely medication induced and over diuresis. UOP was 6L out -will hold all diuretics including lasix, metolozone, aldactone and ankit -will give 1L at 75cc/hr -f/u BMP Chronic Afib/ Severe Pulmonary HTN: Last ECHO in 02/07/2018 revealed moderate (2+) tricuspid valve regurgitation. - Estimated right ventricular systolic pressure is 82 mmHg consistent with severe -pulmonary hypertension. Normal LV function, EF 63% IO chart -Aldactone, lasix lisinopril 2.5 mg held due to PING -Metoprolol 12.5 mg BID, held due to sinus pauses of 1-2seconds. If >3sec, will get EP cardio on board. -Telemonitor. Echo pending. -Resume coumadin ? Hypothyroidism:?resume home meds ? GERD: resume omeprazole ? 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 Medication and Non-Pharmacologic VTE Prophylaxis/Anticoagulants SUBJECTIVE INTERVAL HPI: Feels better, no fever, chills, cp nor palpitations. She has no other issues. No events overnight MEDICATIONS: Reviewed Current Facility-Administered Medications: piperacillin-tazobactam 3.375 g in dextrose (iso-osmotic) 50 mL (ZOSYN) 3.375 g INTRAVENOUS q 8 H Checo Kay MD warfarin 3 mg tab(s) (COUMADIN) 3 mg ORAL DAILY Karishma Meenakshisundaram 3 mg at 03/18/182013 acetaminophen 1,000 mg tab(s) (TYLENOL) 1,000 mg ORAL q 6 H PRN Karishma Meenakshisundaram 1,000 mg at 03/19/18822 gabapentin 300 mg cap(s) (NEURONTIN) 300 mg ORAL BID Chandramohan Meenakshisundaram 300 mg at 03/19/18 0824 lisinopril 2.5 mg tab(s) (ZESTRIL, PRINIVIL) 2.5 mg ORAL DAILY [facility] 2.5 mg at 03/18/18 1023 therapeutic multivitamin with iron (THERAGRAN-M) 1 tablet ORAL DAILY Isismajackelyn Meenakshisundaram 1 tablet at 03/19/18 0824 aspirin, enteric coated 81 mg tab(s) (ASPIRIN, ENTERIC COATED) 81 mg ORAL DAILY [facility] 81 mg at 03/18/18 1024 spironolactone 25 mg tab(s) (ALDACTONE) 25 mg ORAL BID [facility] 25 mg at 03/18/[address] 20 mg tab(s) (PROTONIX) 20 mg ORAL DAILY [facility] 20 mg at 03/19/18 0554 metOLAzone 2.5 mg tab(s) (ZAROXOLYN) 2.5 mg ORAL DAILY [facility] 2.5 mg at 03/18/18 1024 levothyroxine 100 mcg tab(s) (SYNTHROID) 100 mcg ORAL DAILY (6 AM) [facility] 100 mcg at 03/19/18 0554 furosemide 40 mg injection (LASIX) 40 mg INTRAVENOUS q 8 H [facility] 40 mg at 03/19/18 0554 ondansetron orally disintegrating 4 mg tab(s) (ZOFRAN ODT) 4 mg ORAL q 6 H PRN [facility] 4 mg at 03/19/18 0624 Or ondansetron (PF) 4 mg injection (ZOFRAN) 4 mg INTRAVENOUS q 6 H PRN [facility] oxyCODONE-acetaminophen 5-325 mg 1 tablet (PERCOCET) 1 tablet ORAL q 8 H PRN Dicksonrammaan Meenakshisundaram perflutren lipid microspheres 1.1 mg/mL 1.3 mL injection (DEFINITY) 1.3 mL INTRAVENOUS DIRECTED PRN Chandrammaan Meenakshisundaram OBJECTIVE PHYSICAL EXAM: BP 123/76 Pulse 72 Temp (Src) 97.7 (Axillary) Resp 18 Ht 5' 4 (1.63m) Wt 205 lb (93.0kg) SpO2 98% BMI 35.17 kg/(m2). GENERAL: sleeping, no distress, cooperative LUNGS: Lungs clear to auscultation, Good diaphragmatic excursion CARDIAC: Normal S1 and S2; no rubs, murmurs, or gallops ABDOMEN: Abdomen soft, non-tender, BS normal, No masses or organomegaly EXTREMITIES:B/L pitting edema +1. Right lower extremity cleanly bandaged. NEURO: AAND O x 3, speech normal, moves all 4 extremities ? DATA: Diagnostic tests reviewed for today's visit: Most recent labs CBC: WBC 8.93 03/18/2018 Hemoglobin 10.5 03/18/2018 Hematocrit 35.0 03/18/2018 Platelet Count 205 03/18/2018 CMP: Sodium 135 03/19/2018 Potassium 4.3 03/19/2018 BUN 44 03/19/2018 Creatinine 1.79 03/19/2018 Glucose 76 03/19/2018 Chloride 96 03/19/2018 CO2 30 03/19/2018 VTE Prophylaxis: Patient is already anti-coagulated. Disposition: PT Eval Plan of care discussed with: Patient SIGNATURE: Gallito Clarke MD DATE: March 19, 2018 TIME: 1:39 PM PT ED Observed: 03/19/2018 Status: COMPLETED Source: [facility] 1:19 PM CLINIC OTHER CAMPUS REPOSITORY [facility] ID: [id number] Author: Alisa Beltre (Pharmacist) Service: Pharmacy Author Type: Pharmacist Type: Patient Education Filed: 03/19/2018 1:26 PM Note Text: PHARMACY WARFARIN EDUCATION Patient Name: Rosa Beltran Account #: Data Unavailable Admission Date: 03/17/2018 2:57 PM Date of Contact: March 19, 2018 Time of Contact: 1:19 PM Patient new to warfarin? No: Previous (home) dosage: 2mg alternatea with 3mg Outpatient follow-up plan: As before Indication for warfarin: atrial fibrillation Target INR range: 2.0 - 3.0 (Target 2.5) Patient declined warfarin education. Patient declined booklet Understanding the Anticoagulant Medication Warfarin (Coumadin). Alisa Beltre, Pharmacist THERAPY NT Observed: 03/19/2018 Status: COMPLETED Source: [facility] 12:01 PM CLINIC OTHER CAMPUS REPOSITORY HNO ID: [id number] Author: Carrie (Pt) Oumou Service: Physical Therapy Author Type: Physical Therapist Type: Therapy (PT/OT/Speech/Resp) Filed: 03/19/2018 12:12 PM Note Text: Physical Therapy Evaluation SERVICE DATE: 03/19/2018 SERVICE TIME: 1100 to 1132 ROOM: [place] [address] Recommended Discharge Disposition: Subacute/SNF Recommended Discharge Disposition Comments: Patient is + fall risk, presents with significant generalized weakness and balance deficits; very limited assist available (daughter in law however works during the day), indicates need for continued PT post-acute stay in SNF setting prior to return home Justification For Post Acute Needs: Community discharge potential unknown;Functional status improvement unknown;Medically complex;May not tolerate higher intensity programing;Anticipate that patient will require daily (5x/wk) skilled therapy in a post-acute facility setting at the time of acute hospital discharge Anticipated Discharge Needs: Physical Assist at Home;Supervision at Home Physical Assist at Home for: Cleaning;Laundry;Meals;Medication Management;Self Care;Shopping;Transportation Supervision at Home due to: Decreased safety awareness;Impaired cognition Recommended Discharge Equipment: No equipment needs anticipated PT Recommendations to Nursing: Ambulate with device;To bathroom;Transfer to/from chair;OOB for Meals;Utilize bed in chair position;With assist of 1 person;Other: See Comment (offload R wound to prevent further skin breakdown) Device: Wheeled Walker (gait belt) PT 6 Clicks Score: 17 Precautions/Activity Restrictions: Diabetic;Fall Risk;Lines/Tubes/Drains;Other: See Comments (standard, mobilize) ASSESSMENT : Patient presents with R foot wound and subsequent impaired balance, strength, activity tolerance, safety and independence with all functional mobility below reported functional baseline. Patient is alert and oriented x 3 however exhibits moments throughout of confusion and forgetfulness. Patient also noted to be very easily agitated and argumentative with questioning/clarification of statements (due to pt reporting 2 different things at different times throughout evaluation-occurs multiple times). Patient stating I don't think you get it, I have told you several times however each statement made previously pt responded with different answer to-questions/statements are related to PLOF, home environment, complaints/requests throughout session. Patient exhibits much weakness with isolated MMT and functional mobility throughout B LEs with consistent complaints of pain limiting mobility as well throughout. Patient appears to be lacking insight into current limitations, + high anxiety and easily distractible, (-) safety awareness. Requires skilled PT during and post-acute stay for functional mobility training, reinforcing throughout energy conservation techniques, monitoring vitals/response PRN and progression of exercises to improve strength,balance, safety and independence with all mobility tasks. Patient Disposition at Start of Session: Supine in Bed Patient Disposition at End of Session: OOB in Chair;Call Banda in Reach (lunch tray set-up, PCNA in room changing linens) Tolerance Limited By Fatigue;Pain;Cooperation (very easily agitated/argumentative, ?d/t confusion) Physical Therapy Problem List: Cognitive Deficit;Education Deficit;Pain;Safety Deficits;Decreased Activity Tolerance;Decreased Range Of Motion;Decreased Strength;Functional Mobility Impairment;Balance Impaired;Sensory Deficit;Decreased Skin Integrity Patient /Caregiver Goals: Go Home (adamant about return home,states refusing home PT or SNF) Goals for Plan of Care: Able to perform HEP with: Supervision (B LEs x 15-20 reps with handout to (+) strength,balance) Transfer supine to/from sit with: Supervision (with use of bed controls PRN) Transfer sit to/from stand with: Supervision (with LRAD to increase safety with OOB activity) Ambulate with: Supervision Distance: 100-150 feet Device: (LRAD) Ambulate up and down curb step with: Stand By Assistance Device: (LRAD to ensure safety in community) Transfer: Transfer bed to/from chair with LRAD with no more than supervision to increase safety with OOB activity Goal: Improve static and dynamic standing balance with LRAD to require no more than supervision to increase safety with all standing activities and reduce fall risk Rehab Potential: Fair PLAN: Treatment Frequency (times per week): 3 Current admission Treatment Interventions: Education;Energy Conservation Training;Joint Mobility;Strengthening;Functional Mobility Training;Balance Training;Neuromuscular Re-education Plan of Care developed with: Patient TREATMENT INTERVENTIONS: Therapy Diagnosis: Reduced mobility-other;Muscle Weakness (generalized);Unsteadiness on feet Interventions Provided: Evaluation;Therapeutic Activity (87823);Gait Training (33245) $ Evaluation-Low (26040) Billed Units: 1 unit Therapeutic Activity (35023) Treatment Minutes: 9 1 unit Skilled Intervention(s): Instructed patient in supine to sit pushing with upper extremities to sit up Instruction in sit to and from stand technique with proper hand placement and body positioning at edge of bed/chair See below for additional cues and assist Education: Pt educated in role of PT during acute stay and PT POC, importance of OOB activity to reduce risk of functional decline, including recommendation for up in chair throughout the day especially for all meals, goal of upright sitting in chair post-treatment x 30-60 minutes,rationale for discharge recommendation of SNF (adamantly declines SNF as well as home PT), use of call light 100% of the time for assist, parameters for safe home going, rationale for equipment recommendation of use of FWW for safety at all times with all mobility -pt relates use of furniture for support in home, resistant to recommendation due to tight spaces however did discuss concern with + risk of falling briefly (further discussion deferred to minimize pt agitation) Gait Training (11825) Treatment Minutes: 4 Skilled Intervention(s): Instruction in sequencing, gait pattern, Instruction in correction of gait deviations, Instruction in use of equipment, cues for sequence and pattern and See below for additional cues and assist PT with negotiation of O2 tow, x 3LO2 (due to no available setting for 2.5LO2 on tank) Total Timed Code Treatment Minutes: 13 Total Treatment Time (minutes): 32 FUNCTIONAL G CODE: PT 6 Clicks Score: 17 (03/19/18 1100) Mobility: Walking and Moving Around Current Status (G8978): CK (03/19/18 1100) Mobility: Walking and Moving Around Goal Status (G8979): CJ (03/19/18 1100) Based on clinical assessment and the score on the 6 Clicks Functional Assessment Tool, the G code and corresponding severity modifiers are documented above. SUBJECTIVE: Current Hospital Course: Chart reviewed; Patient presents to ED from wound clinic due to worsening R LE wound Reason for Physical Therapy Consult : post-acute placement Relevant Past Medical History: atrial fibrillation, CAD, COPD, depressive disorder, HTN, RA Patient Report: Patient previously this date adamantly refused PT (see note), stating at this time I didn't refuse you, I would have done it, it just wasn't the right time I will do whatever you need me to do, agreeable to PT evaluation/treatment, ok per RN for PT Patient lunch arrives during session, patient states name and to dietary personnel and questions what is on lunch tray, later once in chair states not being aware lunch had arrived, reminded pt of interaction with dietary personnel and questioning food selection, pt becomes agitated, unable to recall They have me on 2.5 LO2 here because I usually wear 3, the wound center wanted me on 2 though and the hospital said to leave me on 3 so they negotiated and put me on 2.5 Home Environment Patient Lives With: Self/Alone Assistance Available: PRN (daughter in law lives in upstairs apt,works during the day) Entry To Home: Other: See Comment (has stair lift takes me from my car into the apartment) Number Of Stairs To Bed/Bath: 0 Tub/Shower Type: walk in tub-with questions to clarify pt becomes easily agitated Equipment Owned: Grab Bars-Shower;Grab Bars-Toilet;Hospital Bed;Wheeled Walker Prior Functional Level: Required Assistance Assistance Required With: Ambulation;Shopping;Transportation Prior Functional Level Comments: Pt with confusion intermittently-question accuracy; states primarily uses furniture for support in apt-doorways/paths not wide enough for walker but does use FWW to ambulate to far side of apartment, indep with ADLs-sponge bathes since unable to get in shower due to R leg wound; dtr in law assists PRN with IADLs and drives OBJECTIVE: CURRENT FUNCTIONAL STATUS: Current Functional Mobility Assist Level Additional Information Rolling Supine to Sit Contact Guard Assistance (with + time especially R LE management,HOB 32 degrees) Verbal cues for goal of task, sequencing, LE progression, bed in max inflate mode Sit to Supine (not tested; up in bedside chair post-treatment) Scooting Contact Guard Assistance (forward/retro bed/chair with + time) Verbal cues for goal of task, use of UEs Sit to Stand Contact Guard Assistance (to slight min assist for initial boost up to FWW x 1 trial) Verbal cues for safe hand placement (consistently initially attempts to reach to pull up from arm rail of bedside chair, agitated with PT recommendation/suggestion of B UEs to push off bed surface for improved safety), safe approach (chair brought up behind pt), controlled descent Stand to Sit Contact Guard Assistance (from FWW to chair x 1 trial) See above Bed to Chair Toilet/Commode Gait Contact Guard Assistance Gait Device: Wheeled Walker (gait belt) Gait Distance (feet): 25 feet x 1-pt initially declines further gait distance due to pain,however once sitting states I could have walked further Stairs (not tested/not applicable) Curb Step Car Transfer Gait Deviations Right Lower Extremity: Stance time decreased;Heel strike during initial stance decreased;Push-off during terminal stance decreased;Step length decreased Gait Deviations Left Lower Extremity: Heel strike during initial stance decreased;Push-off during terminal stance decreased;Step length decreased General Gait Deviations: Lori decreased;Step length decreased;Flexed trunk posture;Other: See comment (min step through, fatigues quickly, +fall risk) -Patient sitting up in bedside chair post-treatment, call banda and personal belongings in reach, RN notified of patient status, denies needs at this time. -Gait belt in place for safety with all functional mobility -Lines/Tubes/Drains: Intact and as follows: x2.5LO2 via nasal cannula, heplock -Range of Motion: L LE WFL AROM as well as R LE with exception R ankle, limited by 50% due to wound and pain See OT evaluation for assessment of UE range of motion. -Strength: not tested R ankle secondary to wound and pain, otherwise B LEs all joints no more than 3 to 3+/5 See OT evaluation for assessment of UE strength. Balance: Static Sitting;Static Standing;Dynamic Standing Static Sitting Balance: Supervision (sitting up at EOB and in chair) Static Standing Balance: Contact Guard Assistance (with BUEs on FWW) Dynamic Standing Balance: Contact Guard Assistance (with B UEs on FWW) Please see discipline specific clinical documentation flowsheet for complete details for this therapy evaluation/treatment. SIGNATURE: Carrie Coello, PT PATIENT NAME: Rosa Beltran DATE: March 19, 2018 TIME: 12:01 PM PAGER/CONTACT #: [phone] THERAPY NT Observed: 03/19/2018 Status: COMPLETED Source: [facility] 9:36 AM CLINIC OTHER CAMPUS REPOSITORY HNO ID: [id number] Author: Carrie ParksPtSantino Coello Service: Physical Therapy Author Type: Physical Therapist Type: Therapy (PT/OT/Speech/Resp) Filed: 03/19/2018 1:16 PM Note Text: PHYSICAL THERAPY MISSED VISIT SERVICE DATE: 03/19/2018 SERVICE TIME: 1100 to 1132 ROOM: [place] [address] Attempted Evaluation. Patient not seen due to Declined. Patient resting supine in bed at approach, PT enters room holding gait belt, before PT introduces self or role of services patient states You're from therapy, I know, but they told me it wasn't scheduled until lunch. It's 9:30, I can't do it now, I just got my neurontin and my Tylenol which makes me sleepy, I actually use the Tylenol to help me sleep and I am waiting on some fruit and tea that didn't come with my breakfast. Attempted to explained to pt role of services and limited availability of PT services this date with possible re-attempt this date for evaluation but otherwise tomorrow patient interrupts PT however stating You're going to go tell them I won't do it, I'm trying to tell you my schedule and on my schedule you aren't supposed to be here until later. Followed up with RN on pt declining at this time for reasons as above and possible re- attempt this date if schedule permits. RN also notified of pt request for fruit and tea. SIGNATURE: Carrie Coello, PT PATIENT NAME: Rosa Beltran DATE: March 19, 2018 TIME: 9:36 AM PAGER/CONTACT #: [phone] CASE MANAGEM Observed: 03/19/2018 Status: COMPLETED Source: [facility] 8:58 AM [facility] OTHER [place] REPOSITORY HNO ID: [id number] Author: Elo Godoy (Sw) Service: Care Management Author Type: Tax Preparer Type: Care Mgt Progress Note Filed: 03/19/2018 8:59 AM Note Text: CARE MANAGEMENT PROGRESS NOTE SERVICE DATE: 03/19/2018 SERVICE TIME: 8:59 AM LOS: 2 days FRONT TENDER updated ref to [facility]. Pt was active with [facility], TRAVEL DIRECTOR. Will need new F2F upon dc. CM to continue to follow and support. SIGNATURE: MERY Abraham PATIENT NAME: Rosa Beltran DATE: March 19, 2018 TIME: 8:58 AM PAGER/CONTACT #: [phone] BASIC METABOLIC PANL Collected: 03/19/2018 Status: F Source: [facility] 4:53 AM CLINIC OTHER CAMPUS REPOSITORY TYPE CODE TESTS RESULT OUT OF REFERENCE UNITS RANGE LAB GLU 74-99 mg/dL Glucose 76 Result Comment: The [place] [employer] (ADA) provides guidance for cutoff values for fasting glucose and random glucose. The ADA defines fasting as no caloric intake for at least 8 hours. Fas ting plasma glucose results between 100 to 125 mg/dL indicate increased risk for diabetes (prediabetes). Fasting plasma glucose results greater than or equal to 126 mg/dL meet the criteria for diagnosis of diabetes. In the absence of unequivocal hyperglycemia, results should be confirmed by repeat testing. In a patient with classic symptoms of hyperglycemia or hyperglycemic crisis, random plasma glucose results greater than or equal to 200 mg/dL meet the criteria for diagnosis of diabetes. Reference: Standards of Medical Care in Diabetes 2016, [place] [employer]. Diabetes Care. 2016.39(Suppl 1). LAB BUN 7-21 mg/dL BUN High 44 LAB CRET 0.58-0.96 mg/dL Creatinine High 1.79 LAB NA 136-144 mmol/L Low Sodium 135 LAB K 3.7-5.1 mmol/L Potassium 4.3 LAB CL 97-105 mmol/L Low Chloride 96 LAB CO2 22-30 mmol/L CO2 30 LAB AGAP 9-18 mmol/L Anion Gap 9 LAB CA 8.5-10.2 mg/dL Calcium, Total 8.6 LAB GFRAA eGFR- Amer. 33 LAB GFRNAA . eGFR-All Other Races 27 Result Comment: eGFR (Estimated GFR) Units of measure: mL/min/1.73 meters squared eGFR is derived from the reexpressed MDRD Study equation using the following parameters: serum creatinine, age, gender and race. The creatinine assay has been calibrated to be traceable to IDMS. An eGFR <60 mL/min/1.73m2 for >3 months is consistent with chronic kidney disease. Refer to KDOQI guidelines for clinical interpretation. In patients with unstable renal function, e.g. those with acute kidney injury, the eGFR may not accurately reflect actual GFR. Performed By: #### BMP, CRP, MG1 #### [facility] [address] [facility] [phone] #### WSR #### [place] [address] C-REACTIVE PROTEIN Collected: 03/19/2018 Status: F Source: [facility] 4:53 [facility] OTHER CAMPUS REPOSITORY TYPE CODE TESTS RESULT OUT OF REFERENCE UNITS RANGE LAB CRP <0.9 mg/dL High C-Reactive 6.0 Protein Performed By: #### GRETCHEN, CRP, MG1 #### [facility] [address] [place], [place] [id number] #### WSR #### [place] [phone] MAGNESIUM Collected: 03/19/2018 Status: F Source: VICTOR 4:53 [facility] OTHER CAMPUS REPOSITORY TYPE CODE TESTS RESULT OUT OF REFERENCE UNITS RANGE LAB MG 1.7-2.3 mg/dL Magnesium 1.8 Performed By: #### GRETCHEN, CRP, MG1 #### [facility] [address] [place] [phone] #### WSR #### [place] [phone] SED RATE WESTERGREN Collected: 03/19/2018 Status: F Source: VICTOR 4:53 [facility] OTHER CAMPUS REPOSITORY TYPE CODE TESTS RESULT OUT OF REFERENCE UNITS RANGE LAB WSR 0-20 mm/hr Sed Rate High Westergren 52 Performed By: #### GRETCHEN, CRP, MG1 #### [facility] [address] [place] [phone] #### WSR #### [place] [phone] PROTIME Collected: 03/19/2018 Status: F Source: VICTOR 4:53 [facility] OTHER CAMPUS REPOSITORY TYPE CODE TESTS RESULT OUT OF RANGE REFERENCE UNITS LAB PSEC 9.7-13.0 sec High PT Sec 24.1 LAB INR 0.9-1.3 High PT INR 2.4 Result Comment: Vitamin K Antagonist (VKA) Therapeutic Range: INR 2 to 3 (Target INR of 2.5) Note: For patients treated with VKA drugs, such as warfarin, the [employer] 2012 Guideline recommends a therapeutic INR range of 2 to 3 (target INR of 2.5). This recommendation includes high-risk patients with antiphospholipid syndrome with previous arterial or venous thromboembolism, current-generation mechanical or bioprosthetic aortic heart valve replacement. Note: Patients with mechanical aortic valve replacement and additional risk factors for thromboembolic events (atrial fibrillation, previous thromboembolism, LV dysfunction, hypercoagulable conditions) or an older generation mechanical AVR (i.e., ball in-Cage) or any mechanical MVR should have a INR therapeutic range of 2.5 to 3.5 (target INR of 3). Shweta GH, et al. Chest 2012, 141:7S-47S Genevieve RA, et al. [facility] 2017, 70: 252-289 Performed By: #### PT #### [facility] [address] [place] [address] PROGRESS Observed: 03/18/2018 Status: COMPLETED Source: VICTOR 4:45 [facility] OTHER CAMPUS REPOSITORY O ID: [id number] Author: Sydnee (Rn) ELENA Bowles Service: (none) Author Type: Registered Nurse Type: Progress Notes Filed: 03/18/2018 4:46 PM Note Text: Nursing Progress Note Vital Historic Sites Supervisor Assessment Note Patient Name: Rosa Beltran Patient Location: [place] [id number] Patient Vitals in the past 4 hrs: 03/18/18 1537, BP:90/65, Temp:36.7 ?C (98 ?F), Temp src:Oral, Pulse:(!) 56, Resp:18, SpO2:97 % 03/18/18 1400, BP:120/64, Pulse:(!) 59 03/18/18 1312, Resp:18 Status Change Related to: Cardiac Issues (See Nursing Clinical Assessment For Details) The Following People Were Notified: Hospitalist/Laborist Caregiver/Provider: Dr. Clarke See Documentation Related to: Continuous Monitoring Additional Comments : Pt. on Tele. No further orders given at this time. Will reassess pt. in 1 hour. This note was completed by: Sydnee Bowles RN NURSING PROG Observed: 03/18/2018 Status: COMPLETED Source: VICTOR 4:29 PM [facility] OTHER [place] REPOSITORY HNO ID: [id number] Author: Sydnee ParksRn) ELENA Bowles Service: (none) Author Type: Registered Nurse Type: Nursing Progress Note Filed: 03/18/2018 4:43 PM Note Text: Nursing Progress Note Patient Name: Rosa Beltran Patient [facility]204/[id number] Daily Note: 1300. Paged Dr. Clarke to review Tele Strip. Pt. Had a 2 second pause back to back. Pt. Afib and occasionally A Flutter. No further orders a this time. 1530. Paged Dr. lCarke to review Tele Strip. Pt. Had another 2 second pause.Pt. Afib and occasionally A Flutter. No further orders a this time. Dr. Clarke stated to call him if patient has another pause and we will consult cardiology. 1630. Notified Dr. Clarke of patients BP. See doc flow sheets. Pt. Asymptomatic. No further orders given at this time. Will continue to monitor and reassess BP in 1 Hour. This note was completed by: Sydnee Bowles RN PROGRESS Observed: 03/18/2018 Status: COMPLETED Source: VICTOR 10:58 AM [facility] REPOSITORY HNO ID: [id number] Author: Gallito Clarke Service: Hospital Medicine Author Type: Physician Type: Progress Notes Filed: 03/18/2018 11:08 AM Note Text: HOSPITAL MEDICINE PROGRESS NOTE Name: Rosa Beltran SERVICE DATE: 03/18/2018 SERVICE TIME: 10:58 AM LOCATION / ROOM: [facility]/[id number] Hospital Medicine/Primary Attending: Gallito Clarke MD NIGHT COVERAGE BETWEEN 5.30P-7.30A Page [phone] ASSESSMENT AND PLAN Active Hospital Problems Diagnosis - Leg ulcer, right, with fat layer exposed (HCC) Infected Leg Ulcers with cellulitis: Has no features of sepsis WBC normal XR Rt Ankle- No evidence of fracture or dislocation. No plain film findings of osteomyelitis.Deformity of distal right tibia and fibula and right hind foot, consistent with remote trauma, post-operative and degenerative change - Started on Vanc and Zosyn, but ID Dc vanco. - ESR/CRP ordered for OM eval -wound cultures sent. - Needs wound debridement - Consulted podiatry - wound care - Start IV lasix for leg swelling -wound care follow up ? Chronic Afib/ Severe Pulmonary HTN: Last ECHO in 02/07/2018 revealed moderate (2+) tricuspid valve regurgitation. - Estimated right ventricular systolic pressure is 82 mmHg consistent with severe pulmonary hypertension. Normal LV function, EF 63% Switch to IV lasix IO chart Resume Aldactone, lisinopril 2.5 mg, Metoprolol 12.5 mg BID Telemonitor Resume coumadin ? Hypothyroidism: resume home meds ? GERD: resume omeprazole ? 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 Medication and Non-Pharmacologic VTE Prophylaxis/Anticoagulants VTE Prophylaxis: on therapeutic anticoagulation ? SUBJECTIVE INTERVAL HPI: The pt was examined this AM. She was in a deep sleep. She seemed comfortable. MEDICATIONS: Reviewed Current Facility-Administered Medications: sodium hypochlorite topical irrigation 0.25% (DAKINS HALF-STRENGTH) IRRIGATION ONCE Jessica (Res) Jimmy warfarin 3 mg tab(s) (COUMADIN) 3 mg ORAL DAILY Chandramohan Meenakshisundaram 3 mg at 03/17/18 2135 acetaminophen 1,000 mg tab(s) (TYLENOL) 1,000 mg ORAL q 6 H PRN Chandramohan Meenakshisundaram 1,000 mg at 03/18/18 0608 gabapentin 300 mg cap(s) (NEURONTIN) 300 mg ORAL BID Chandramohan Meenakshisundaram 300 mg at 03/18/18 1024 lisinopril 2.5 mg tab(s) (ZESTRIL, PRINIVIL) 2.5 mg ORAL DAILY Chandramohan Meenakshisundaram 2.5 mg at 03/18/18 1023 metoprolol tartrate (short acting) 12.5 mg tab(s) (LOPRESSOR) 12.5 mg ORAL BID Chandramohan Meenakshisundaram 12.5 mg at 03/18/18 1024 therapeutic multivitamin with iron (THERAGRAN-M) 1 tablet ORAL DAILY [facility] 1 tablet at 03/18/18 1023 aspirin, enteric coated 81 mg tab(s) (ASPIRIN, ENTERIC COATED) 81 mg ORAL DAILY Chandramohan Meenakshisundaram 81 mg at 03/18/18 1024 spironolactone 25 mg tab(s) (ALDACTONE) 25 mg ORAL BID [facility] 25 mg at 03/18/[address] 20 mg tab(s) (PROTONIX) 20 mg ORAL DAILY [facility]en[facility] 20 mg at 03/18/18 0609 metOLAzone 2.5 mg tab(s) (ZAROXOLYN) 2.5 mg ORAL DAILY [facility] Meenakshisundaram 2.5 mg at 03/18/18 1024 levothyroxine 100 mcg tab(s) (SYNTHROID) 100 mcg ORAL DAILY (6 AM) [facility] Meenakshisundaram 100 mcg at 03/18/18 0609 furosemide 40 mg injection (LASIX) 40 mg INTRAVENOUS q 8 H [facility] 40 mg at 03/18/18 0608 ondansetron orally disintegrating 4 mg tab(s) (ZOFRAN ODT) 4 mg ORAL q 6 H [facility]N [facility]en[facility] 4 mg at 03/18/18 0609 Or ondansetron (PF) 4 mg injection (ZOFRAN) 4 mg INTRAVENOUS q 6 H PRN [facility] Me[facility] piperacillin-tazobactam 3.375 g in dextrose (iso-osmotic) 50 mL (ZOSYN) 3.375 g INTRAVENOUS q 6 H Chandramohan Meenakshisundaram Last Rate: 100 mL/hr at 03/18/18 0608 3.375 g at 03/18/18 0608 oxyCODONE-acetaminophen 5-325 mg 1 tablet (PERCOCET) 1 tablet ORAL q 8 H [facility]N [facility] perflutren lipid microspheres 1.1 mg/mL 1.3 mL injection (DEFINITY) 1.3 mL INTRAVENOUS DIRECTED PRN Dicksonmalik Ileana OBJECTIVE PHYSICAL EXAM: BP 120/58 Pulse 60 Temp (Src) 98.6 (Oral) Resp 20 Ht 5' 4 (1.63m) Wt 205 lb (93.0kg) SpO2 96% BMI 35.17 kg/(m2). GENERAL: sleeping, no distress, cooperative LUNGS: Lungs clear to auscultation, Good diaphragmatic excursion CARDIAC: Normal S1 and S2; no rubs, murmurs, or gallops ABDOMEN: Abdomen soft, non-tender, BS normal, No masses or organomegaly EXTREMITIES:B/l 3 + pitting edema noted in both the legs, Rt Leg - 6 x 5 cm stage 2 ulcer with slough and yellowish drainage noted on the lateral aspect, Medial aspect - chronic changes from previous ulcer with erythema noted, erythema noted in the lower leg, deformities of toes noted from RA NEURO: AAND O x 3, speech normal, moves all 4 extremities DATA: Diagnostic tests reviewed for today's visit: Most recent labs CBC: WBC 8.93 03/18/2018 Hemoglobin 10.5 03/18/2018 Hematocrit 35.0 03/18/2018 Platelet Count 205 03/18/2018 CMP: Sodium 137 03/18/2018 Potassium 4.4 03/18/2018 BUN 36 03/18/2018 Creatinine 1.14 03/18/2018 Glucose 102 03/18/2018 Chloride 100 03/18/2018 CO2 28 03/18/2018 VTE Prophylaxis: Patient is already anti-coagulated. Disposition: pending. PT eval pending. Plan of care discussed with: Patient SIGNATURE: Gallito Clarke MD DATE: March 18, 2018 TIME: 10:58 AM CONSULT Observed: 03/18/2018 Status: COMPLETED Source: VICTOR 9:55 AM [facility]INIC OTHER CAMPUS REPOSITORY HNO ID: [id number] Author: Jessica Yeager Service: Podiatry Author Type: Resident Type: Consults Filed: 03/18/2018 10:07 AM Note Text: CONSULT: POD SURG SERVICE SERVICE DATE: 03/18/2018 SERVICE TIME: 900 REASON FOR CONSULT: R leg wound with cellulitis PRIMARY CARE PHYSICIAN: Mani Newman MD Subjective Ms. Beltran is a 82 year old female who presents for R leg cellulitis with chronic ulcerations that have worsened in the past week per the patient she has increased redness and swelling. Pt states she has been taking PO Doxycycline without improving and was therefore sent to the ER for labs, evaluation and admitted for IV antibiotics. [facility] and states she also has [facility] assist with dressing changes. Pt denies N/V/F/C/SOB. PAST MEDICAL HISTORY Diagnosis Date - Acquired hypothyroidism - Acute respiratory failure with hypoxia ([facility]) 09/30/2017 - Atrial fibrillation ([facility]) - CAD (coronary artery disease) Dr. Brenda Awan Hts, Promus element KIMMY LAD 11/20/2012, Stress test 04/2014 inferoapical reversible ischemia,small LVEF 48- 50%, LHC 12/2014 L main-normal, LAD widely patent, Cx diffuse mild luminal irregularities with 80%focal stenosis distal, RCA dominant with minimal luminal irregularities. 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 - Pure hypercholesterolemia - Rheumatoid arthritis ([facility]) 2007 - Sleep apnea - Stented coronary artery 12/29/2016 PAST SURGICAL HISTORY Procedure Laterality Date - CC CORONARY STENT 11/20/2012 KIMMY LAD - CC CORONARY STENT 12/20/2014 KIMMY, Cfx - SECTION HX - COLONOSCOPY 06/10/2017 [facility], Nonspecific cecal ulcer - GASTRIC BYPASS HX 1986 - HERNIA REPAIR HX 1987; 1989 - PAST SURGICAL HISTORY OF Right 09/2015 right tibia fracture ORIF - PAST SURGICAL HISTORY OF Right 01/20/2016 Removal of hardware, right tibia - TOTAL KNEE REPLACEMENT Right 2003 [facility] Gen. - TOTAL KNEE REPLACEMENT Left 2004 [facility] Gen. No family history on file. Social History Substance Use Topics - Smoking status: Passive Smoke Exposure - Never Smoker - Smokeless tobacco: Never Used Comment: smoked for 40 years - Alcohol use No Prescriptions Prior to Admission: metoprolol tartrate, short acting, (LOPRESSOR) 25 mg tablet Take 0.5 tablets by mouth twice daily. Disp: 30 tablet Rfl: 5 03/17/2018 at Unknown time lisinopril (ZESTRIL) 2.5 mg tablet Take 1 tablet by mouth every evening. Disp: 30 tablet Rfl: 5 03/17/2018 at Unknown time omeprazole (PRILOSEC) 20 mg capsule Take 1 capsule by mouth once daily. Disp: 30 capsule Rfl: 5 03/17/2018 at Unknown time docusate sodium (COLACE) 100 mg capsule Take 1 capsule by mouth once daily as needed for Constipation. Disp: 30 capsule Rfl: 5 Past Week at Unknown time furosemide (LASIX) 40 mg tablet Take 2 tablets by mouth twice daily. Disp: 120 tablet Rfl: 5 03/17/2018 at Unknown time spironolactone (ALDACTONE) 25 mg tablet Take 1 tablet by mouth twice daily. Disp: 60 tablet Rfl: 5 03/17/2018 at Unknown time metOLAzone (ZAROXOLYN) 2.5 mg tablet Take 2 tablets by mouth once daily. Disp: 60 tablet Rfl: 11 03/17/2018 at Unknown time sodium hypochlorite (DAKIN'S SOLUTION) 0.125 % soln Dakin's moistened gauze packing every other day to wound for bacterial control. Disp: 473 mL Rfl: 2 03/16/2018 at Unknown time warfarin (COUMADIN) 3 mg tablet Take 1 tablet by mouth daily as directed. Patient is taking 2mg Tuesday and and 3mg other days. (Patient taking differently: Take 3 mg by mouth once daily. ) Disp: Rfl: 03/16/2018 at Unknown time gabapentin (NEURONTIN) 300 mg capsule Take 1 capsule by mouth twice daily for 180 days. Disp: 180 capsule Rfl: 1 03/17/2018 at Unknown time ASCORBIC ACID (VITAMIN C ORAL) Take 1 tablet by mouth twice daily. Disp: Rfl: 03/17/2018 at Unknown time silver sulfADIAZINE (SILVADENE) 1 % cream Apply to leg wounds as directed. Disp: 50 g Rfl: 1 03/16/2018 at Unknown time acetaminophen (TYLENOL) 500 mg tablet Take 1,000 mg by mouth every 8 hours as needed. Disp: Rfl: 03/17/2018 at Unknown time aspirin, enteric coated (ASPIRIN, ENTERIC COATED) 81 mg EC tablet Take 81 mg by mouth every evening. Disp: Rfl: 03/17/2018 at Unknown time therapeutic multivitamin w/ iron (THERAGRAN-M) 9 mg iron-400 mcg tablet Take 1 tablet by mouth once daily. Disp: Rfl: 03/17/2018 at Unknown time levothyroxine (LEVOXYL) 100 mcg tablet Take 1 tablet by mouth once daily. Take on empty stomach. For Thyroid. Disp: 30 tablet Rfl: 11 03/17/2018 at Unknown time Zinc Sulfate 220 mg tab Take 1 tablet by mouth once daily for 14 days. Disp: 14 tablet Rfl: 0 Not Taking at Unknown time COMPOUNDED PRESCRIPTION Calcium Alginate 4x4 Dressing, change daily Dx: Blister left leg with infection S80.822A, L08.9; Lymphedema I89.0. Wound dimensions: 4 x 3 cm Disp: 14 Each Rfl: 0 Unknown at Unknown time Current hospital medications: warfarin 3 mg tab(s) (COUMADIN) 3 mg ORAL DAILY acetaminophen 1,000 mg tab(s) (TYLENOL) 1,000 mg ORAL q 6 H PRN gabapentin 300 mg cap(s) (NEURONTIN) 300 mg ORAL BID lisinopril 2.5 mg tab(s) (ZESTRIL, PRINIVIL) 2.5 mg ORAL DAILY metoprolol tartrate (short acting) 12.5 mg tab(s) (LOPRESSOR) 12.5 mg ORAL BID therapeutic multivitamin with iron (THERAGRAN-M) 1 tablet ORAL DAILY aspirin, enteric coated 81 mg tab(s) (ASPIRIN, ENTERIC COATED) 81 mg ORAL DAILY spironolactone 25 mg tab(s) (ALDACTONE) 25 mg ORAL BID pantoprazole DR 20 mg tab(s) (PROTONIX) 20 mg ORAL DAILY metOLAzone 2.5 mg tab(s) (ZAROXOLYN) 2.5 mg ORAL DAILY levothyroxine 100 mcg tab(s) (SYNTHROID) 100 mcg ORAL DAILY (6 AM) furosemide 40 mg injection (LASIX) 40 mg INTRAVENOUS q 8 H ondansetron orally disintegrating 4 mg tab(s) (ZOFRAN ODT) 4 mg ORAL q 6 H PRN ondansetron (PF) 4 mg injection (ZOFRAN) 4 mg INTRAVENOUS q 6 H PRN piperacillin-tazobactam 3.375 g in dextrose (iso-osmotic) 50 mL (ZOSYN) 3.375 g INTRAVENOUS q 6 H oxyCODONE-acetaminophen 5-325 mg 1 tablet (PERCOCET) 1 tablet ORAL q 8 H PRN perflutren lipid microspheres 1.1 mg/mL 1.3 mL injection (DEFINITY) 1.3 mL INTRAVENOUS DIRECTED PRN Allergies As of Date: 03/17/2018 (No Known Allergies) Fully Assessed 03/17/2018 COMPLETE REVIEW OF SYSTEMS: Neg except what's indicated above Objective PHYSICAL EXAM: Physical Exam Performed: Gen NAD Vasc: DP/PT Non-palpable 2/2 +2 edema Neuro: Intact Derm: Right lateral leg ulceration 5.0x7.0x 0.2cm. Mild serousanginous drainage, no malodor, 50% granular, 50%fibrotic base. Jennifer wound erythema, diffuse edema LE, deformity. Right medial wound 3.0x3.0x0.9cm. Dry, scabbing/scaling jennifer-wound. Musc: m/s +4/5 BP 104/64 Pulse 51 Temp (Src) 98.6 (Oral) Resp 20 Ht 5' 4 (1.63m) Wt 205 lb (93.0kg) SpO2 96% BMI 35.17 kg/(m2). DATA: Diagnostic tests reviewed for today's visit: Most recent labs and imaging results. CBC, Coags, BMP, Mg, Phos Recent Labs 03/18/18 0449 03/17/18 1540 WBC 8.93 6.75 HB 10.5* 11.9 HCT 35.0* 39.5 PLT 205 227 INR -- 2.3* APTT -- 39.4* NA 137 136 K 4.4 4.2 CHLOR 100 99 CO2 28 27 BUN 36* 36* CREAT 1.14* 1.06* GLUC 102* 115* CA 8.6 9.1 MG 1.7 -- Impression/Recommendations PAD COPD CAD Afib RA Right leg ulcerations Mild Cellulitis of RLE Pt seen and examined bedside, ulcerations stable, superficial, with mild cellultis, with diffuse LE edema Recommend wound care while in house Follow up outpatient in wound care center for debridement Wash with dakins, apply xeroform, ABDs, kerlix Follow cultures, already obtained Follow ID recs for abx recs PVRs already ordered Xrays neg for OM Follow ESR, CRP Cont wound care, will put orders in and follow up outpt for regular wound care debridements ? SIGNATURE: Jessica Yeager DPM PATIENT NAME: Rosa Beltran DATE: March 18, 2018 TIME: 9:55 AM PAGER: CONSULT Observed: 03/18/2018 Status: COMPLETED Source: [facility] 8:06 AM CLINIC OTHER CAMPUS REPOSITORY HNO ID: [id number] Author: Mariajose Roque Service: Infectious Disease Author Type: Physician Type: Consults Filed: 03/18/2018 8:28 AM Note Text: CONSULT: INFECTIOUS DISEASE SERVICE SERVICE DATE: 03/18/2018 SERVICE TIME: 8:06 AM REASON FOR CONSULT: Leg ulcer PRIMARY CARE PHYSICIAN: Mani Newman MD Subjective This is a 82 year old frail chronically ill appearing female with PMHx as listed below presented to the ED from the wound care clinic with complaints of worsening Right Leg ulcers through the past week. She had noted increasing erythema over the foot and the lower 2/3 rd of the right leg, increasing drainage from the wound over the lateral aspect of the right ankle. For the past 2 weeks since wound appeared to be worsening, painful she was started on a course of PO Doxycycline BID which she had been taking with no improvement. She denies any fever or chills. She had noted pain of 4/10 in her leg. In ED afebrile, WBC normal, lactate 1.1. X ray with remote trauma, no signs of OM. CXR with stable consolidations from prior ?pulmonary edema. In January his wound cx had grown Proteus and MSSA. NIMISHA from Oct suggestive of small vessel disease versus vasoconstriction, per patient no intervention done. Patient currently on Vancomycin and Zosyn. PAST MEDICAL HISTORY Diagnosis Date - Acquired hypothyroidism - Acute respiratory failure with hypoxia (HCC) 09/30/2017 - Atrial fibrillation (HCC) - CAD (coronary artery disease) Dr. Brenda Awan Hts, Promus element KIMMY LAD 11/20/2012, Stress test 04/2014 inferoapical reversible ischemia,small LVEF 48- 50%, LHC 12/2014 L main-normal, LAD widely patent, Cx diffuse mild luminal irregularities with 80%focal stenosis distal, RCA dominant with minimal luminal irregularities. 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 - Pure hypercholesterolemia - Rheumatoid arthritis ([facility]) 2007 - Sleep apnea - Stented coronary artery 12/29/2016 PAST SURGICAL HISTORY Procedure Laterality Date - CC CORONARY STENT 11/20/2012 KIMMY LAD - CC CORONARY STENT 12/20/2014 KIMMY, Cfx - SECTION HX - COLONOSCOPY 06/10/2017 [facility], Nonspecific cecal ulcer - GASTRIC BYPASS HX 1986 - HERNIA REPAIR HX 1987; 1989 - PAST SURGICAL HISTORY OF Right 09/2015 right tibia fracture ORIF - PAST SURGICAL HISTORY OF Right 01/20/2016 Removal of hardware, right tibia - TOTAL KNEE REPLACEMENT Right 2003 [facility] Gen. - TOTAL KNEE REPLACEMENT Left 2004 [facility] Gen. No family history on file. Social History Substance Use Topics - Smoking status: Passive Smoke Exposure - Never Smoker - Smokeless tobacco: Never Used Comment: smoked for 40 years - Alcohol use No Prescriptions Prior to Admission: metoprolol tartrate, short acting, (LOPRESSOR) 25 mg tablet Take 0.5 tablets by mouth twice daily. Disp: 30 tablet Rfl: 5 03/17/2018 at Unknown time lisinopril (ZESTRIL) 2.5 mg tablet Take 1 tablet by mouth every evening. Disp: 30 tablet Rfl: 5 03/17/2018 at Unknown time omeprazole (PRILOSEC) 20 mg capsule Take 1 capsule by mouth once daily. Disp: 30 capsule Rfl: 5 03/17/2018 at Unknown time docusate sodium (COLACE) 100 mg capsule Take 1 capsule by mouth once daily as needed for Constipation. Disp: 30 capsule Rfl: 5 Past Week at Unknown time furosemide (LASIX) 40 mg tablet Take 2 tablets by mouth twice daily. Disp: 120 tablet Rfl: 5 03/17/2018 at Unknown time spironolactone (ALDACTONE) 25 mg tablet Take 1 tablet by mouth twice daily. Disp: 60 tablet Rfl: 5 03/17/2018 at Unknown time metOLAzone (ZAROXOLYN) 2.5 mg tablet Take 2 tablets by mouth once daily. Disp: 60 tablet Rfl: 11 03/17/2018 at Unknown time sodium hypochlorite (DAKIN'S SOLUTION) 0.125 % soln Dakin's moistened gauze packing every other day to wound for bacterial control. Disp: 473 mL Rfl: 2 03/16/2018 at Unknown time warfarin (COUMADIN) 3 mg tablet Take 1 tablet by mouth daily as directed. Patient is taking 2mg Tuesday and and 3mg other days. (Patient taking differently: Take 3 mg by mouth once daily. ) Disp: Rfl: 03/16/2018 at Unknown time gabapentin (NEURONTIN) 300 mg capsule Take 1 capsule by mouth twice daily for 180 days. Disp: 180 capsule Rfl: 1 03/17/2018 at Unknown time ASCORBIC ACID (VITAMIN C ORAL) Take 1 tablet by mouth twice daily. Disp: Rfl: 03/17/2018 at Unknown time silver sulfADIAZINE (SILVADENE) 1 % cream Apply to leg wounds as directed. Disp: 50 g Rfl: 1 03/16/2018 at Unknown time acetaminophen (TYLENOL) 500 mg tablet Take 1,000 mg by mouth every 8 hours as needed. Disp: Rfl: 03/17/2018 at Unknown time aspirin, enteric coated (ASPIRIN, ENTERIC COATED) 81 mg EC tablet Take 81 mg by mouth every evening. Disp: Rfl: 03/17/2018 at Unknown time therapeutic multivitamin w/ iron (THERAGRAN-M) 9 mg iron-400 mcg tablet Take 1 tablet by mouth once daily. Disp: Rfl: 03/17/2018 at Unknown time levothyroxine (LEVOXYL) 100 mcg tablet Take 1 tablet by mouth once daily. Take on empty stomach. For Thyroid. Disp: 30 tablet Rfl: 11 03/17/2018 at Unknown time Zinc Sulfate 220 mg tab Take 1 tablet by mouth once daily for 14 days. Disp: 14 tablet Rfl: 0 Not Taking at Unknown time COMPOUNDED PRESCRIPTION Calcium Alginate 4x4 Dressing, change daily Dx: Blister left leg with infection S80.822A, L08.9; Lymphedema I89.0. Wound dimensions: 4 x 3 cm Disp: 14 Each Rfl: 0 Unknown at Unknown time Current hospital medications: warfarin 3 mg tab(s) (COUMADIN) 3 mg ORAL DAILY acetaminophen 1,000 mg tab(s) (TYLENOL) 1,000 mg ORAL q 6 H PRN gabapentin 300 mg cap(s) (NEURONTIN) 300 mg ORAL BID lisinopril 2.5 mg tab(s) (ZESTRIL, PRINIVIL) 2.5 mg ORAL DAILY metoprolol tartrate (short acting) 12.5 mg tab(s) (LOPRESSOR) 12.5 mg ORAL BID therapeutic multivitamin with iron (THERAGRAN-M) 1 tablet ORAL DAILY aspirin, enteric coated 81 mg tab(s) (ASPIRIN, ENTERIC COATED) 81 mg ORAL DAILY spironolactone 25 mg tab(s) (ALDACTONE) 25 mg ORAL BID pantoprazole DR 20 mg tab(s) (PROTONIX) 20 mg ORAL DAILY metOLAzone 2.5 mg tab(s) (ZAROXOLYN) 2.5 mg ORAL DAILY levothyroxine 100 mcg tab(s) (SYNTHROID) 100 mcg ORAL DAILY (6 AM) furosemide 40 mg injection (LASIX) 40 mg INTRAVENOUS q 8 H ondansetron orally disintegrating 4 mg tab(s) (ZOFRAN ODT) 4 mg ORAL q 6 H PRN ondansetron (PF) 4 mg injection (ZOFRAN) 4 mg INTRAVENOUS q 6 H PRN piperacillin-tazobactam 3.375 g in dextrose (iso-osmotic) 50 mL (ZOSYN) 3.375 g INTRAVENOUS q 6 H vancomycin 1.5 g in D5W 250 mL (VANCOCIN) 1.5 g INTRAVENOUS q 24 HR oxyCODONE-acetaminophen 5-325 mg 1 tablet (PERCOCET) 1 tablet ORAL q 8 H PRN perflutren lipid microspheres 1.1 mg/mL 1.3 mL injection (DEFINITY) 1.3 mL INTRAVENOUS DIRECTED PRN vancomycin dosing and monitoring per pharmacy OTHER As Directed Allergies As of Date: 03/17/2018 (No Known Allergies) Fully Assessed 03/17/2018 COMPLETE REVIEW OF SYSTEMS: Objective PHYSICAL EXAM: Gen NAD Lungs bilateral crackles, On NC CVS No murmurs appreciated Abd soft LE Right leg with multiple draining ulcers, yellow discharge. Mild surrounding erythema Patient Vitals for the past 24 hrs: BP Temp Temp src Pulse Resp SpO2 Height Weight 03/18/18 0752 104/64 37 ?C (98.6 ?F) Oral (!) 51 20 96 % - - 03/18/18 0301 125/89 37.4 ?C (99.3 ?F) Oral (!) 59 17 100 % - - 03/17/18 2324 129/90 37.2 ?C (99 ?F) Oral 67 18 100 % - - 03/17/182114 - - - - - 99 % - - 03/17/18 2100 - - - - - - 162.6 cm (5' 4) - 03/17/18 2038 163/81 36.9 ?C (98.4 ?F) Oral 112 18 88 % - - 03/17/18 1733 150/80 - - (!) 53 16 96 % - - 03/17/18 1639 157/68 - - (!) 54 16 98 % - - 03/17/18 1520 183/81 36.7 ?C (98 ?F) Oral 59 18 98 % - 93 kg (205 lb) 03/17/18 1519 183/81 - - 59 18 98 % - - Body mass index is 35.19 kg/m?. DATA: Recent Labs 03/18/18 0449 03/17/18 1540 WBC 8.93 6.75 HB 10.5* 11.9 PLT 205 227 INR -- 2.3* NA 137 136 K 4.4 4.2 CO2 28 27 BUN 36* 36* CREAT 1.14* 1.06* AST -- 19 ALT -- 8 TBILI -- 0.4 ALKPHOS -- 89 LACT -- 1.1 Diagnostic tests reviewed for today's visit: reviewed Impression/Recommendations Right leg ulcers Mild surrounding Cellulitis of RLE PAD Prior cx with 02/15 MSSA and Proteus mirabilis COPD CAD Afib RA Plan --Continue Zosyn --DC Vancomycin --Send wound cx --Check ESR and CRP, if elevated will need further imaging to evaluate for OM --Podiatry evaluation for IANDD SIGNATURE: Mariajose Roque MD PATIENT NAME: Rosa Beltran DATE: March 18, 2018 TIME: 8:06 AM BASIC METABOLIC PANL Collected: 03/18/2018 Status: F Source: [facility] 4:49 AM CLINIC OTHER CAMPUS REPOSITORY TYPE CODE TESTS RESULT OUT OF REFERENCE UNITS RANGE LAB GLU 74-99 mg/dL High Glucose 102 Result Comment: The [place] Diabetes Association (ADA) provides guidance for cutoff values for fasting glucose and random glucose. The ADA defines fasting as no caloric intake for at least 8 hours. Fas ting plasma glucose results between 100 to 125 mg/dL indicate increased risk for diabetes (prediabetes). Fasting plasma glucose results greater than or equal to 126 mg/dL meet the criteria for diagnosis of diabetes. In the absence of unequivocal hyperglycemia, results should be confirmed by repeat testing. In a patient with classic symptoms of hyperglycemia or hyperglycemic crisis, random plasma glucose results greater than or equal to 200 mg/dL meet the criteria for diagnosis of diabetes. Reference: Standards of Medical Care in Diabetes 2016, [place] [employer] Association. Diabetes Care. 2016.39(Suppl 1). LAB BUN 7-21 mg/dL BUN High 36 LAB CRET 0.58-0.96 mg/dL Creatinine High 1.14 LAB NA 136-144 mmol/L Sodium 137 LAB K 3.7-5.1 mmol/L Potassium 4.4 LAB CL 97-105 mmol/L Chloride 100 LAB CO2 22-30 mmol/L CO2 28 LAB AGAP 9-18 mmol/L Anion Gap 9 LAB CA 8.5-10.2 mg/dL Calcium, Total 8.6 LAB GFRAA eGFR- Amer. 55 LAB GFRNAA . eGFR-All Other Races 46 Result Comment: eGFR (Estimated GFR) Units of measure: mL/min/1.73 meters squared eGFR is derived from the reexpressed MDRD Study equation using the following parameters: serum creatinine, age, gender and race. The creatinine assay has been calibrated to be traceable to IDMS. An eGFR <60 mL/min/1.73m2 for >3 months is consistent with chronic kidney disease. Refer to KDOQI guidelines for clinical interpretation. In patients with unstable renal function, e.g. those with acute kidney injury, the eGFR may not accurately reflect actual GFR. Performed By: #### BMP, MG1, CBC #### [facility] [address] [place] [address] MAGNESIUM Collected: 03/18/2018 Status: F Source: [facility] 4:49 AM CLINIC OTHER CAMPUS REPOSITORY TYPE CODE TESTS RESULT OUT OF REFERENCE UNITS RANGE LAB MG 1.7-2.3 mg/dL Magnesium 1.7 Performed By: #### BMP, MG1, CBC #### [facility] [address] [place] [address] CBC Collected: 03/18/2018 Status: F Source: [facility] 4:49 AM CLINIC OTHER CAMPUS REPOSITORY TYPE CODE TESTS RESULT OUT OF REFERENCE UNITS RANGE LAB WBC 3.70-11.00 k/uL WBC 8.93 LAB RBC 3.90-5.20 m/uL Low RBC 3.87 LAB HGB 11.5-15.5 g/dL Low Hemoglobin 10.5 LAB HCT 36.0-46.0 % Low Hematocrit 35.0 LAB MCV 80.0-100.0 fL MCV 90.4 LAB MCH 26.0-34.0 pG MCH 27.1 LAB MCHC 30.5-36.0 g/dL Low MCHC 30.0 LAB RDWCV 11.5-15.0 % RDW-CV High 16.4 LAB PLTCT 150-400 k/uL Platelet Count 205 LAB MPV 9.0-12.7 fL MPV 10.9 Performed By: #### BMP, MG1, CBC #### [facility] [address] [facility] [phone] ULTRA-SENSITIVE CRP Collected: 03/18/2018 Status: F Source: [facility] 4:49 AM [facility] OTHER CAMPUS REPOSITORY TYPE CODE TESTS RESULT OUT OF REFERENCE UNITS RANGE LAB CRPUS <3.1 mg/L High UltraSens 24.5 C-ReacProt Result Comment: (NOTE) hsCRP < 1.0 mg/L, relative risk is low hsCRP 1.0-3.0 mg/L, relative risk is average hsCRP > 3.0 mg/L, relative risk is high Reference: Christofer TA, Andriy GA, Bhavin RW, et al. Markers of Inflammation and Cardiovascular Disease. Application to Clinical and Public Health Practice. A Statement for Healthcare Professionals From the Centers for Disease Control and Prevention and the [place] Heart [employer]. Circulation 2003;107:499-511. Performed By: #### HSCRP, WSR #### [facility] [address] [place] [address] SED RATE WESTERGREN Collected: 03/18/2018 Status: F Source: [facility] 4:49 AM [facility] OTHER CAMPUS REPOSITORY TYPE CODE TESTS RESULT OUT OF REFERENCE UNITS RANGE LAB WSR 0-20 mm/hr Sed Rate High Westergren 52 Performed By: #### HSCRP, WSR #### [facility] [address] [place] [address] PROTIME Collected: 03/18/2018 Status: F Source: [facility] 4:49 AM [facility] OTHER [place] REPOSITORY TYPE CODE TESTS RESULT OUT OF RANGE REFERENCE UNITS LAB PSEC 9.7-13.0 sec High PT Sec 22.9 LAB INR 0.9-1.3 High PT INR 2.3 Result Comment: Vitamin K Antagonist (VKA) Therapeutic Range: INR 2 to 3 (Target INR of 2.5) Note: For patients treated with VKA drugs, such as warfarin, the [place] [employer] 2012 Guideline recommends a therapeutic INR range of 2 to 3 (target INR of 2.5). This recommendation includes high-risk patients with antiphospholipid syndrome with previous arterial or venous thromboembolism, current-generation mechanical or bioprosthetic aortic heart valve replacement. Note: Patients with mechanical aortic valve replacement and additional risk factors for thromboembolic events (atrial fibrillation, previous thromboembolism, LV dysfunction, hypercoagulable conditions) or an older generation mechanical AVR (i.e., ball in-Cage) or any mechanical MVR should have a INR therapeutic range of 2.5 to 3.5 (target INR of 3). Shweta SALOMON, et al. Chest 2012, 141:7S-47S Genevieve RA, et al. [facility] 2017, 70: 252-289 Performed By: #### PT #### [facility] [address] [place] [address] PROGRESS Observed: 03/17/2018 Status: COMPLETED Source: [facility] 8:41 PM [facility] OTHER [place] REPOSITORY HNO ID: [id number] Author: Quiana Zavala (Pharmacist) Service: Pharmacy Author Type: Pharmacist Type: Progress Notes Filed: 03/17/2018 8:44 PM Note Text: PHARMACY VANCOMYCIN DOSING NOTE Patient Name: Rosa Beltran Admission Date: 03/17/2018 Date of Consult: 03/17/2018 Time of Consult: 8:41 PM Indication: Right leg wound Goal Range: 15-20 mcg/mL RECOMMENDATIONS/PLAN: Pharmacy consulted for vancomycin dosing for Rosa Beltran, a 82 year old, female who is being treated with vancomycin for right leg wound. 1. Patient is currently ordered Vancomycin 1.25 g IV q24h. Today is day 1 of therapy. (1st dose in ED) 2. No vancomycin level has been drawn for this dosing regimen. 3. Will increase vancomycin to 1.5 g with a dosing interval of q24h based on patient's weight of 93 kg and estimated CrCl of 46ml/min (Adjusted BW). 4. The next vancomycin level will be ordered for 03/20 unless clinically indicated sooner. (Pharmacy will order) We will follow patient renal function, vancomycin levels and doses with you during the course of therapy. Additional recommendations will appear in follow up notes. If you have any questions, please contact inpatient pharmacy at [phone]. Age: [age] year old Allergies: ALLERGIES No Known Allergies Last 3 Encounter Wt Readings: Date: Wt: 03/17/2018 93 kg (205 lb) 03/06/2018 93 kg (205 lb) 02/03/2018 95.7 kg (211 lb) Last 1 Encounter Ht Readings: Date: Ht: 12/19/2017 162.6 cm (5' 4) CrCl: 46 mL/min (Adjusted BW) Temp (24hrs), Av.8 ?C (98.2 ?F), Min:36.7 ?C (98 ?F), Max:36.9 ?C (98.4 ?F) - Current Temp: 36.9 ?C (98.4 ?F) Labs BUN (mg/dL) Date Value 03/17/2018 36 (H) 03/06/2018 39 (H) 02/07/2018 24 (H) Creatinine (mg/dL) Date Value 03/17/2018 1.06 (H) 03/06/2018 1.10 (H) 02/07/2018 0.95 WBC (k/uL) Date Value 03/17/2018 6.75 12/21/2017 4.85 12/20/2017 5.80 Vancomycin Levels: No results found for: DANISHA Zavala, Pharmacist ED NOTE Observed: 03/17/2018 Status: COMPLETED Source: [facility] 7:50 PM CLINIC OTHER CAMPUS REPOSITORY HNO ID: [id number] Author: Echo (Rn) Aviva Yeager RN Service: (none) Author Type: Registered Nurse Type: ED Notes Filed: 03/17/2018 7:51 PM Note Text: ED NOTE Observed: 03/17/2018 Status: COMPLETED Source: [facility] 7:37 PM CLINIC OTHER CAMPUS REPOSITORY HNO ID: [id number] Author: Echo (Rn) Aviva Yeager RN Service: (none) Author Type: Registered Nurse Type: ED Notes Filed: 03/17/2018 7:39 PM Note Text: talked with pharmacy regarding infiltration of zosyn, nothing noted in police to be uses. Area not red or warm no irritation or tenderness URINALYSIS Collected: 03/17/2018 Status: F Source: [facility] 7:00 PM [facility] OTHER CAMPUS REPOSITORY TYPE CODE TESTS RESULT OUT OF RANGE REFERENCE UNITS LAB UCOL Yellow Color Yellow LAB [facility] Clear Clarity Clear LAB UGLUC Negative mg/dL Glucose, Urine Negative LAB UBIL Negative Bilirubin, Urine Negative LAB UKET Negative Ketones, Urine Negative LAB USPG 1.001-1.029 Specific [place], Ur 1.020 LAB UHGB Negative Hemoglobin/Blood, Negative Ur LAB UPH 5.0-8.0 pH 6.0 LAB UPROT Negative mg/dL Protein, Abnormal Urine Trace Alert LAB UUROB 0.2-1.0 Urobilinogen 0.2 LAB UNITR Negative Nitrites Negative LAB ULKEST Negative Leukest Negative Performed By: #### UA, UAMIC #### [facility] [address] [place] [address] URINE MICROSCOPIC Collected: 03/17/2018 Status: F Source: [facility] (FOR LAB USE ONLY) 7:00 PM [facility] OTHER [place] REPOSITORY TYPE CODE TESTS RESULT OUT OF REFERENCE UNITS RANGE LAB UWBC 0-5 /HPF WBC 0-5 LAB URBC 0-3 /HPF RBC 0-3 LAB UCAST 0 /LPF Cast SEE COMMENT Result Comment: 0 LAB UBACT 0 /HPF Abnormal Bacteria Alert Occasional LAB UEPI /HPF SEE Epithelial Cells COMMENT Result Comment: 0-5 Squamous Epithelial Cells Performed By: #### UA, UAMIC #### [facility] [address] [place] [address] HISTORY PHYSICAL Observed: 03/17/2018 Status: COMPLETED Source: [facility] 6:48 PM [facility] OTHER [place] REPOSITORY HNO ID: [id number] Author: Karishma Cleary Service: General Internal Medicine Author Type: Physician Type: HANDP Filed: 03/18/2018 12:04 AM Note Text: DEPARTMENT OF HOSPITAL MEDICINE HISTORY AND PHYSICAL EXAM SERVICE DATE: 03/17/2018 SERVICE TIME: 6.20 PM Primary Care Physician: Mani Newman MD NIGHT AND WEEKEND COVERAGE: Nights: Please contact pager [phone]. Subjective CHIEF COMPLAINT: worsening of leg ulcers with cellulitis. HPI: This is a 82 year old frail chronically ill appearing female with PMHx as listed below presented to the ED from the wound care clinic with complaints of worsening Right Leg ulcers through the past week. She had noted increasing erythema over the foot and the lower 2/3 rd of the right leg, increasing drainage from the wound over the lateral aspect of the right ankle. For the past 2 weeks since wound appeared to be worsening she was started on a course of PO Doxycycline BID which she had been taking with no improvement. She denies any fever or chills. She had noted pain of 4/10 in her leg. In ED her vital signs were noted to be 183/81 mm Hg, MA- 60/min, Temp- 98.4, RR- 18/min, SPO2 98 % on 3 L NC O2. CBC and BMP normal. INR - 2.3. Podiatry consulted from ED. She is admitted for management of worsening of leg ulcers with cellulitis. PAST MEDICAL HISTORY Diagnosis Date - Acquired hypothyroidism - Acute respiratory failure with hypoxia (HCC) 09/30/2017 - Atrial fibrillation ([facility]) - CAD (coronary artery disease) Dr. Brenda Awan Hts, Promus element KIMMY LAD 11/20/2012, Stress test 04/2014 inferoapical reversible ischemia,small LVEF 48- 50%, LHC 12/2014 L main-normal, LAD widely patent, Cx diffuse mild luminal irregularities with 80%focal stenosis distal, RCA dominant with minimal luminal irregularities. 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 - Pure hypercholesterolemia - Rheumatoid arthritis (HCC) 2007 - Sleep apnea - Stented coronary artery 12/29/2016 PAST SURGICAL HISTORY Procedure Laterality Date - CC CORONARY STENT 11/20/2012 KIMMY LAD - CC CORONARY STENT 12/20/2014 KIMMY, Cfx - SECTION HX - COLONOSCOPY 06/10/2017 [facility], Nonspecific cecal ulcer - GASTRIC BYPASS HX 1987 - HERNIA REPAIR HX 1987; 1989 - PAST SURGICAL HISTORY OF Right 09/2015 right tibia fracture ORIF - PAST SURGICAL HISTORY OF Right 01/20/2016 Removal of hardware, right tibia - TOTAL KNEE REPLACEMENT Right 2003 [facility] Gen. - TOTAL KNEE REPLACEMENT Left 2004 [facility] Gen. No family history on file. Social History Substance Use Topics - Smoking status: Passive Smoke Exposure - Never Smoker - Smokeless tobacco: Never Used Comment: smoked for 40 years - Alcohol use No MEDICATIONS: Reviewed (Not in a hospital admission) ALLERGIES No Known Allergies REVIEW OF SYSTEM: GENERAL: No weight loss, malaise or fevers HEENT: Negative for frequent or significant headaches, No changes in hearing or vision, no nose bleeds or other nasal problems NECK: Negative for lumps, goiter, pain and significant neck swelling RESPIRATORY: Negative for cough, hemoptysis, wheezing, shortness of breath CARDIOVASCULAR: Positive for B/L leg swelling,Negative for chest pain, palpitations GI: No nausea, vomiting, or diarrhea : No history of dysuria, frequency or incontinence MUSCULOSKELETAL: Negative for joint pain or swelling, back pain or muscle pain SKIN: Positive for right leg ulcer, Negative for lesions, rash, and itching PSYCH: Negative for sleep disturbance, mood disorder and recent psychosocial stressors HEMATOLOGY/LYMPHOLOGY: Negative for prolonged bleeding, bruising easily or swollen nodes ENDOCRINE: Negative for cold or heat intolerance, polyuria, polydipsia and goiter NEURO: No history of headaches, syncope, paralysis, seizures or tremors Objective PHYSICAL EXAM: BP 157/68 Pulse 54[afib[ Temp (Src) 98 (Oral) Resp 16 Wt 205 lb (93.0kg) SpO2 98% Physical Exam Performed: GENERAL: She appears chronically ill, alert, no distress, cooperative SKIN: Ulcers as described, Skin color, texture, turgor normal. No rashes or lesions. HEAD/SINUSES: No significant findings EYES: PERRLA, EOMI, No pallor, no scleral icterus NOSE: Nares normal. Septum midline, nasal mucosa normal OROPHARYNX: Lips, mucosa, and tongue normal. Teeth and gums normal. Oropharynx normal. NECK: No jugulovenous distention, No carotid bruits, Carotid pulse normal contour, Supple BACK: Back symmetric, Normal curvature, No CVAT. LUNGS: Lungs clear to auscultation, Good diaphragmatic excursion CARDIAC: Normal S1 and S2; IRIR, no rubs, murmurs, or gallops ABDOMEN: Abdomen soft, non-tender, BS normal, No masses or organomegaly EXTREMITIES: B/l 3 + pitting edema noted in both the legs, Rt Leg - 6 x 5 cm stage 2 ulcer with slough and yellowish drainage noted on the lateral aspect, Medial aspect - chronic changes from previous ulcer with erythema noted, erythema noted in the lower leg, deformities of toes noted from RA NEURO: AAND O x 3, speech normal, moves all 4 extremities PULSES: 2+ radial Lines, Drains, and Airways Line Peripheral 03/17/18 1548 Left Antecubital 20 Gauge less than 1 day DATA: Diagnostic tests reviewed for today's visit: Most recent labs Most recent imaging Assessment/Plan Active Problems: Infected Leg Ulcers with cellulitis: Has no features of sepsis WBC normal XR Rt Ankle- No evidence of fracture or dislocation. No plain film findings of osteomyelitis.Deformity of distal right tibia and fibula and right hind foot, consistent with remote trauma, post-operative and degenerative change - Started on Vanc and Zosyn, continue - Needs wound debridement - Consulted podiatry - wound care - Start IV lasix for leg swelling Chronic Afib/ Severe Pulmonary HTN: Last ECHO in 02/07/2018 revealed moderate (2+) tricuspid valve regurgitation. - Estimated right ventricular systolic pressure is 82 mmHg consistent with severe pulmonary hypertension. Normal LV function, EF 63% Switch to IV lasix IO chart Resume Aldactone, lisinopril 2.5 mg, Metoprolol 12.5 mg BID Telemonitor Resume coumadin from tomorrow Hypothyroidism: resume home meds GERD: resume omeprazole Deforming Rheumatoid Arthritis: not on meds Medication and Non-Pharmacologic VTE Prophylaxis/Anticoagulants VTE Prophylaxis: on therapeutic anticoagulation Disposition: Home Plan of care discussed with: Patient, Family/Other: daughter at bedside, [place] Room Physician and RN SIGNATURE: Karishma Cleary MD PATIENT NAME: Rosa Beltran DATE: March 17, 2018 TIME:12:04 AM PAGER/CONTACT #: [phone] etx [id number] CASE MGT INIT Observed: 03/17/2018 Status: COMPLETED Source: [facility] MELVIN 6:02 PM CLINIC OTHER CAMPUS REPOSITORY HNO ID: [id number] Author: Tiffany Vieira (Sw) Service: (none) Author Type: Tax Preparer Type: Care Mgt Initial Assessment Filed: 03/17/2018 6:09 PM Note Text: CARE MANAGEMENT: ASSESSMENT AND DISCHARGE PLAN SERVICE DATE: 03/17/2018 SERVICE TIME: 5:50 pm PRIMARY CARE PHYSICIAN: Mani Newman MD - confirmed with pt ADMISSION STATUS: Emergency MEDICAL: Patient/Material Processor Stated Goals: To have reduction in symptoms To return home to life as it was Health Insurance: MEDICARE A AND B [place] Health Issues Impacting Discharge Plan: Wound right leg Last Admission Date: Previous admit date: 12/19/2017 Is this Within the Past 30 days? No Advance Directive: Current Advance Directive: None; pt stated she has the paperwork at home and declined more paperwork at this time Health Literacy: 1. How often do you need to have someone help you when you read instructions, pamphlets, or other written material from your doctor or pharmacy? Never - 1 2. How confident are you filling out medical forms by yourself? Extremely - 1 If Patient scores > 3 on either question, the following interventions were put into place: Patient did not score > 3 FUNCTIONAL AND COGNITIVE/BEHAVIORAL PRIOR TO ADMISSION: Baseline Mental Status: Alert AND Oriented, Person, Place , Time and Situation Functional Status: Independent Does Patient Currently Receive Any Community Services or Home Care? Home Health Care Agency: [facility]; ; Active. Equipment Prior to Admission: Oxygen 3 liters per minute [facility] Wound Care supplies Provider [facility] Has the Patient Been in a Half-Way Facility in the Past 30 days? No SOCIAL: Living Arrangement: Home Lives With: Alone Financial Resources: Retired Primary Contact: Extended Emergency Contact Information Primary Emergency Contact: Sheron Beltran Mobile Relation: Relative Supportive: Yes Other Important Patient Contacts: None Caregiver Assessment: Caregiver is ready, willing and able to meet the patient's needs as recommended by the inter-professional team? Yes Patient's transition needs and plan for meeting these needs: Pt is from home with [facility] nursing services and plans to resume services upon d/c Does the patient have an acute stroke diagnosis, or has the patient had a stroke during this admission? No Medication Adherence: I am convinced of the importance of my prescription medication: Agree completely - 0 I worry that my prescription medication will do more harm than good to me Disagree completely - 0 I feel financially burdened by my suy-hb-hqcgou expenses for my prescription medication: Disagree completely - 0 Patient is categorized as low risk < 2 Are you interested in bedside delivery of your medications? No Food Concerns: In the Last Month, Have You had Trouble Getting Food? No trouble getting food During the Last Month, Have You Worried Whether Your Food Would Run Out Before You Had Enough Money to Buy More? No Is the Patient Psychosocially Complex? No ASSESSMENT AND PLAN: Medical Needs: Wound Care - active or potential and AFib, CAD, COPD, HTN, Sleep Apnea Psychosocial Needs: None FREEDOM OF CHOICE EXPLAINED: Yes Pt would like to resume nursing services with [facility] POTENTIAL TRANSITION PLANS Home Home Care SW met with pt and aakjssps-yt-ytn bedside. Pt and mtjyztix-td-fqo are familiar with SW from previous hospitalization. Explained role again. Pt is from home and noted that although she and her bviucbrf-qc-yih are in separate units, they live in the same house. Pt reported she has an intercom system and can communicate with her aqlpccpb-ro-oks. Pt confirmed she is active with [facility] nursing [facility] and wants to resume services upon d/c. Qaxmiahz-wg-gmx to transport. SIGNATURE: NAILA AMEZCUA PATIENT NAME: Rosa Beltran DATE: March 17, 2018 TIME: 6:02 PM PAGER/CONTACT #: [phone] ED NOTE Observed: 03/17/2018 Status: COMPLETED Source: [facility] 6:00 PM CLINIC OTHER CAMPUS REPOSITORY HNO ID: [id number] Author: Echo (Rn) Aviva Yeager RN Service: (none) Author Type: Registered Nurse Type: ED Notes Filed: 03/17/2018 7:51 PM Note Text: Both heels floated again XR ANKLE 3V AP/LAT/OBL Observed: 03/17/2018 Status: F Source: [facility] RT 4:06 PM CLINIC OTHER CAMPUS REPOSITORY * * *Final Report* * * DATE OF EXAM: Mar 17 2018 4:06PM MDX [id number] - XR ANKLE 3V AP/LAT/OBL RT / PROCEDURE REASON: Disruption of wound * * * * Physician Interpretation * * * * TECHNIQUE: Right ankle, 3 views HISTORY: Disruption of wound. r/o osteomyelitis COMPARISON: Right tibia/fibula: 01-13-18 RESULTS: AP and oblique views. A lateral view of right tibia is not submitted. Lateral metallic fixation plate and screws again noted at distal right fibular diaphysis. Deformity of distal right tibial diaphysis consistent with remote healed fracture. Tiny lucencies within distal right tibial diaphysis consistent with ghost pin tracts from prior hardware. Vascular calcifications noted. Soft tissue deformity of medial and lateral aspect of distal right lower leg consistent with open wounds noted. Otherwise, no evidence of soft tissue gas, bone erosion or periosteal reaction. Deformity of right hindfoot again noted. There appears to be fusion of distal right tibial metaphysis with lateral aspect of right talus on AP view, stable. Degenerative changes of right hindfoot again noted. Ankle mortise maintained. No dislocation or acute fracture. IMPRESSION: 1. A lateral view of right ankle is not submitted. 2. No evidence of acute skeletal abnormality. No evidence of fracture or dislocation. No plain film findings of osteomyelitis. 3. Deformity of distal right tibia and fibula and right hind foot, consistent with remote trauma, post-operative and degenerative change, as described. Stereotype Finisher: DWIGHT Transcribe Date/Time: Mar 17 2018 4:38P Dictated by : KATHIE CAMERON MD This examination was interpreted and the report reviewed and electronically signed by: KATHIE CAMERON MD on Mar 17 2018 4:43PM EST [id number] XR CHEST 2V FRONTAL/LAT Observed: 03/17/2018 Status: F Source: VICTOR 4:06 PM [facility] OTHER CAMPUS REPOSITORY * * *Final Report* * * DATE OF EXAM: Mar 17 2018 4:06PM MDX [id number] - XR CHEST 2V FRONTAL/LAT / PROCEDURE REASON: SOB, volume overload, heart failure suspected * * * * Physician Interpretation * * * * EXAMINATION: CHEST RADIOGRAPH (PORTABLE SINGLE VIEW AP) Exam Date/Time: 03/17/2018 4:06 PM Clinical History: SOB, volume overload, heart failure suspected M: XCP_4 Comparison: 12/19/2017 RESULT: IMPRESSION: 1. Lines, Tubes, and Devices: None 2. Lungs and Pleura: Moderate diffuse alveolar-appearing consolidation throughout both lungs. This appearance is been present on films from 09/30/2017 12/02/2017 and 12/19/2017. This most likely represents moderate pulmonary edema 3. Cardiomediastinal silhouette: Mild cardiomegaly noted Pulmonary vascularity is unremarkable. 4. Other: Bony structures unremarkable. Stereotype Finisher: DWIGHT Transcribe Date/Time: Mar 17 2018 4:36P Dictated by : HAO YORK DO This examination was interpreted and the report reviewed and electronically signed by: HAO YORK DO on Mar 17 2018 4:46PM EST [id number] ED NOTE Observed: 03/17/2018 Status: COMPLETED Source: VICTOR 3:48 PM [facility] OTHER CAMPUS REPOSITORY HNO ID: [id number] Author: Jasmeet (Medic) Faby Beltran Service: (none) Author Type: Tare Worker and Oil Well Shooter Type: ED Notes Filed: 03/17/2018 3:48 PM Note Text: Blood cultures drawn and sent. One set. CBC AND DIFFERENTIAL Collected: 03/17/2018 Status: F Source: VICTOR 3:40 PM [facility] OTHER CAMPUS REPOSITORY TYPE CODE TESTS RESULT OUT OF REFERENCE UNITS RANGE LAB WBC 3.70-11.00 k/uL WBC 6.75 LAB RBC 3.90-5.20 m/uL RBC 4.33 LAB HGB 11.5-15.5 g/dL Hemoglobin 11.9 LAB HCT 36.0-46.0 % Hematocrit 39.5 LAB MCV 80.0-100.0 fL MCV 91.2 LAB MCH 26.0-34.0 pG MCH 27.5 LAB MCHC 30.5-36.0 g/dL Low MCHC 30.1 LAB RDWCV 11.5-15.0 % RDW-CV High 16.6 LAB PLTCT 150-400 k/uL Platelet Count 227 LAB MPV 9.0-12.7 fL MPV 10.5 LAB ANEUT % Neut% 61.2 LAB AANEUT 1.45-7.50 k/uL Abs Neut 4.13 LAB ALYMP % Lymph% 26.7 LAB AALYMP 1.00-4.00 k/uL Abs Lymph 1.80 LAB AMONO % [place]% 9.0 LAB AAMONO <0.87 k/uL Abs [place] 0.61 LAB AEOS % Eosin% 2.7 LAB AAEOS <0.46 k/uL Abs Eosin 0.18 LAB ABASO % Baso% 0.4 LAB AABASO <0.11 k/uL Abs Baso 0.03 Performed By: #### CBCDIF, SLACT, CMP #### [facility] [address] [place] [address] SEPSIS LACTATE Collected: 03/17/2018 Status: F Source: VICTOR 3:40 PM [facility] OTHER [place] REPOSITORY TYPE CODE TESTS RESULT OUT OF REFERENCE UNITS RANGE LAB SLACTT 0.5-2.0 mmol/L Sepsis 1.1 Lactate Performed By: #### CBCDIF, SLACT, CMP #### [facility] [address] [place] [address] COMP METABOLIC PANEL Collected: 03/17/2018 Status: F Source: VICTOR 3:40 PM [facility] OTHER [place] REPOSITORY TYPE CODE TESTS RESULT OUT OF REFERENCE UNITS RANGE LAB TP 6.3-8.0 g/dL Protein, High Total 8.9 LAB ALB 3.9-4.9 g/dL Low Albumin 3.4 LAB CA 8.5-10.2 mg/dL Calcium, Total 9.1 LAB TBIL 0.2-1.3 mg/dL Bilirubin, Total 0.4 LAB ALKP 32-117 U/L Alkaline Phosphatase 89 LAB AST 13-35 U/L AST 19 LAB GLU 74-99 mg/dL Glucose High 115 Result Comment: The [place] Diabetes Association (ADA) provides guidance for cutoff values for fasting glucose and random glucose. The ADA defines fasting as no caloric intake for at least 8 hours. Fas ting plasma glucose results between 100 to 125 mg/dL indicate increased risk for diabetes (prediabetes). Fasting plasma glucose results greater than or equal to 126 mg/dL meet the criteria for diagnosis of diabetes. In the absence of unequivocal hyperglycemia, results should be confirmed by repeat testing. In a patient with classic symptoms of hyperglycemia or hyperglycemic crisis, random plasma glucose results greater than or equal to 200 mg/dL meet the criteria for diagnosis of diabetes. Reference: Standards of Medical Care in Diabetes 2016, [place] [employer] Association. Diabetes Care. 2016.39(Suppl 1). LAB BUN 7-21 mg/dL BUN High 36 LAB CRET 0.58-0.96 mg/dL Creatinine High 1.06 LAB NA 136-144 mmol/L Sodium 136 LAB K 3.7-5.1 mmol/L Potassium 4.2 LAB CL 97-105 mmol/L Chloride 99 LAB CO2 22-30 mmol/L CO2 27 LAB AGAP 9-18 mmol/L Anion Gap 10 LAB ALT 7-38 U/L ALT 8 LAB GFRAA eGFR- Amer. >60 LAB GFRNAA . eGFR-All Other Races 50 Result Comment: eGFR (Estimated GFR) Units of measure: mL/min/1.73 meters squared eGFR is derived from the reexpressed MDRD Study equation using the following parameters: serum creatinine, age, gender and race. The creatinine assay has been calibrated to be traceable to IDMS. An eGFR <60 mL/min/1.73m2 for >3 months is consistent with chronic kidney disease. Refer to KDOQI guidelines for clinical interpretation. In patients with unstable renal function, e.g. those with acute kidney injury, the eGFR may not accurately reflect actual GFR. Performed By: #### CBCDIF, SLACT, CMP #### [facility] [address] [place], [place] [phone] NT PRO BNP Collected: 03/17/2018 Status: F Source: VICTOR 3:40 PM [facility] [place] REPOSITORY TYPE CODE TESTS RESULT OUT OF REFERENCE UNITS RANGE LAB PBNP <450 pg/mL High PRO B Natr 2023 Peptide Performed By: #### NTBNP #### [facility] [address] [place], [place] [id number] PROTIME Collected: 03/17/2018 Status: F Source: VICTOR 3:40 PM [facility] OTHER CAMPUS REPOSITORY TYPE CODE TESTS RESULT OUT OF RANGE REFERENCE UNITS LAB PSEC 9.7-13.0 sec High PT Sec 22.8 LAB INR 0.9-1.3 High PT INR 2.3 Result Comment: Vitamin K Antagonist (VKA) Therapeutic Range: INR 2 to 3 (Target INR of 2.5) Note: For patients treated with VKA drugs, such as warfarin, the [place] [employer] 2012 Guideline recommends a therapeutic INR range of 2 to 3 (target INR of 2.5). This recommendation includes high-risk patients with antiphospholipid syndrome with previous arterial or venous thromboembolism, current-generation mechanical or bioprosthetic aortic heart valve replacement. Note: Patients with mechanical aortic valve replacement and additional risk factors for thromboembolic events (atrial fibrillation, previous thromboembolism, LV dysfunction, hypercoagulable conditions) or an older generation mechanical AVR (i.e., ball in-Cage) or any mechanical MVR should have a INR therapeutic range of 2.5 to 3.5 (target INR of 3). Shweta GH, et al. Chest 2012, 141:7S-47S Genevieve RA, et al. [facility] 2017, 70: 252-289 Performed By: #### PT, PTT #### [facility] [address] [facility] [phone] APTT Collected: 03/17/2018 Status: F Source: VICTOR 3:40 PM [facility] REPOSITORY TYPE CODE TESTS RESULT OUT OF RANGE REFERENCE UNITS LAB APTT 23.0-32.4 sec High APTT 39.4 Result Comment: Unfractionated Heparin Therapeutic Ranges: Standard Heparin Nomogram: 53 to 78 seconds (anti-Xa level of 0.3 to 0.7 U/ml) Low Dose/ACS Nomogram: 49 to 67 seconds (anti-Xa level of 0.2 to 0.5 U/ml) Stroke Treatment Nomogram: 49 to 67 seconds (anti-Xa level of 0.2 to 0.5 U/ml) Note: The APTT therapeutic range has been determined for the current lot of laboratory APTT reagent in use throughout the [facility]. Performed By: #### PT, PTT #### [facility] [address] [place] [address] Observed: 03/17/2018 Status: F Source: VICTOR BLOOD CULTURE 3:40 PM [facility] REPOSITORY Sp. Request/Comment: - The blood culture bottles are underfilled. Adding volume lower or higher than the 8 to 10 mL per bottle, which is the manufacturers recommended volume, may adversely affect the re covery and/or detection of organisms. 11.8ML Culture Result - No growth 5 days Performed By: #### BLCUL #### [facility] [address] [place], [place] [address] Observed: 03/17/2018 Status: F Source: [facility]CTOR BLOOD CULTURE 3:40 PM [facility] OTHER [place] REPOSITORY Culture Result - No growth 5 days Performed By: #### BLCUL #### [facility] [address] [place] [phone] ED NOTE Observed: 03/17/2018 Status: COMPLETED Source: VICTOR 3:23 PM [facility] OTHER CAMP[facility] REPOSITORY HNO ID: [id number] Author: Roxann Hammer) ELEAN Kimbrough Service: (none) Author Type: Registered Nurse Type: ED Notes Filed: 03/17/2018 3:23 PM Note Text: Patient presents to ED with leg pain swelling infection ED PROV NOTE Observed: 03/17/2018 Status: COMPLETED Source: VICTOR 3:14 PM [facility] REPOSITORY HNO ID: [id number] Author: Karan Diallo DO Service: Emergency Medicine Author Type: Physician Type: ED Provider Notes Filed: 03/17/2018 6:12 PM Note Text: ED Provider Note Patient Name: Rosa Beltran SERVICE DATE: 03/17/18 History No chief complaint on file. 82 year old female with a past medical history of A. fib, CAD, CHF, presents to emergency department today from the wound clinic for worsening right leg wound over the last week. Patient stated chronic right leg wound is now worse and more drainage and more swelling on the right leg. She is also been having fevers and chills at home. She has been on antibiotics at home without any improvement. Also complaining of shortness of breath worse with lying down. She denies any chest pain. Denies any complaints. PAST MEDICAL HISTORY Diagnosis Date - Acquired hypothyroidism - Acute respiratory failure with hypoxia (HCC) 09/30/2017 - Atrial fibrillation (HCC) - CAD (coronary artery disease) Dr. Brenda Awan Hts, Promus element KIMMY LAD 11/20/2012, Stress test 04/2014 inferoapical reversible ischemia,small LVEF 48- 50%, LHC 12/2014 L main-normal, LAD widely patent, Cx diffuse mild luminal irregularities with 80%focal stenosis distal, RCA dominant with minimal luminal irregularities. 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 - Pure hypercholesterolemia - Rheumatoid arthritis ([facility]) 2007 - Sleep apnea - Stented coronary artery 12/29/2016 PAST SURGICAL HISTORY Procedure Laterality Date - CC CORONARY STENT 11/20/2012 KIMMY LAD - CC CORONARY STENT 12/20/2014 KIMMY, Cfx - SECTION HX - COLONOSCOPY 06/10/2017 [facility], Nonspecific cecal ulcer - GASTRIC BYPASS HX 1986 - HERNIA REPAIR HX 1987; 1989 - PAST SURGICAL HISTORY OF Right 09/2015 right tibia fracture ORIF - PAST SURGICAL HISTORY OF Right 01/20/2016 Removal of hardware, right tibia - TOTAL KNEE REPLACEMENT Right 2003 [facility] Gen. - TOTAL KNEE REPLACEMENT Left 2004 [facility] Gen. No family history on file. Social History Social History Main Topics - Smoking status: Passive Smoke Exposure - Never Smoker - Smokeless tobacco: Never Used Comment: smoked for 40 years - Alcohol use No - Drug use: No - Sexual activity: Not on file ALLERGIES No Known Allergies Review of Systems Constitutional: Negative for chills and fever. HENT: Negative for congestion and sore throat. Eyes: Negative for photophobia and visual disturbance. Respiratory: Negative for chest tightness, shortness of breath and wheezing. Cardiovascular: Negative for chest pain and palpitations. Gastrointestinal: Negative for abdominal pain and blood in stool. Genitourinary: Negative for dysuria and hematuria. Musculoskeletal: Negative for neck pain and neck stiffness. Skin: Positive for wound. Negative for color change. Neurological: Negative for dizziness and headaches. Psychiatric/Behavioral: Negative for agitation and confusion. Physical Exam There were no vitals taken for this visit. Physical Exam Constitutional: She is oriented to person, place, and time. She appears well-developed and well-nourished. HENT: Head: Normocephalic and atraumatic. Eyes: Conjunctivae and EOM are normal. Neck: Normal range of motion. Neck supple. Cardiovascular: Normal rate and regular rhythm. Pulmonary/Chest: Effort normal and breath sounds normal. No respiratory distress. She has no wheezes. Abdominal: Soft. Bowel sounds are normal. Musculoskeletal: Normal range of motion. She exhibits tenderness and deformity. She exhibits no edema. Right lower leg: She exhibits swelling. Left lower leg: She exhibits swelling. Left foot: Normal. Feet: +3 pitting edema Neurological: She is alert and oriented to person, place, and time. Skin: Skin is warm and dry. Psychiatric: She has a normal mood and affect. Her behavior is normal. Diagnostic Testing ED Labs Ordered and Reviewed - No data to display BNP 1999 ED imaging studies ordered and reviewed X-ray of right ankle with evidence of remote trauma Chest x-ray with chronic appearing moderate diffuse alveolar consolidations throughout both lungs likely pulmonary edema Procedures Medical Decision Making IV started Nursing notes and vital signs reviewed Triage note reviewed Patient's [id number] provides elements of past medical history and history of present illness Medications administered Lasix vancomycin and Zosyn Discussed with admitting hospital as Dr. Joseph - aGreeable to admission MDM The medical record is reviewed.Triage note is reviewed and incorporated. The nursing note is reviewed and consistent with patient's history and physical exam findings. The vital signs were reviewed the the vital signs are : There were no vitals taken for this visit. XR directly visualized and independently interpreted by me as well as Radiologist showed: A lateral view of right ankle is not submitted.2. ?No evidence of acute skeletal abnormality. No evidence of fracture or dislocation. No plain film findings of osteomyelitis.. Deformity of distal right tibia and fibula and right hind foot, onsistent with remote trauma, post-operative and degenerative change, as described. MDM: This is a well-appearing female with a pmh of chf who presents to the ED with a chief complaint of wound infection, leg swelling who is, afebrile , hemodynamically stable, in no acute distress patient whose symptoms are controlled in the ED with vanco and zosyn . Based on patient's pmh, chief complaint and physical exam findings, differential diagnoses include osteomyelitis vs cellulitis, vs sepsis, vs chf. Labs and imaging studies reveal cbc within normal limits cmp with bun of 36, creatinine of 1.06, pro bnp of 2023 Patient presents to the ED from wound clinic for worsening wound in right leg. She will require admission for iv antibitoics, will give zosyn and vanco At this time, based on the patient's history, physical exam findings, lab results and clinical picture , the most likely diagnosis is wound infection The attending who evaluated and managed this patient was Dr. Diallo. Labs, physical exam as well as imaging findings and plan for continuity of care was discussed with Dr. Joseph who will admit. This note was partially generated using [employer] voice recognition system, and there may be some incorrect words, spellings, and punctuation that were not noted in checking the note before saving ED Course / Clinical Impression Clinical Impressions as of Mar 17 1656 Wound infection Plan SIGNATURE: DAFNE Shepard (Pa) 03/17/181739 Sachin Medellin (Pa) 03/17/181740 Attending Note I have personally performed a face to face assessment of the patient and have reviewed the PA/DADO OPERATOR note. My [place] findings include: History is 82-year-old female past history of atrial ablation on Coumadin COPD on supplemental O2 CHF CAD sent from wound care clinic with worsening right lower extremity wound. Patient has a chronic wound to the medial aspect of the right ankle. It is been worsening over the past 2 weeks with significant discharge from it. She does report subjective fever and chills at home. She has been on oral antibiotics without improvement of symptoms. Exam is hypertensive upon arrival remainder vitals unremarkable. Alert and oriented no acute distress. Heart bradycardic rate with regular rhythm. Diminished breath sounds throughout. Abdomen soft. Focused exam to the right lower extremity shows wound with yellow appearing discharged to the medial aspect of the right ankle. Assessment/Plan are stable upon arrival. Blood work grossly unremarkable. BNP elevated with chronic pulmonary edema noted on chest x-ray with Lasix. Blood and wound cultures obtained. Treated with vancomycin and Zosyn based on past cultures of Proteus and staph aureus susceptibility. Discussed with admitting hospitalist who is agreeable to admission for further treatment and care. Admit. Other additions or changes: As edited - bold type Signature: Karan Diallo DO Date: 03/17/2018 Time: 6:07 PM Karan Diallo DO 03/17/181811 PROGRESS Observed: 03/17/2018 Status: COMPLETED Source: VICTOR 2:15 PM CLINIC OTHER CAMPUS REPOSITORY HNO ID: [id number] Author: Luis Simons Service: (none) Author Type: Nurse Practitioner Type: Progress Notes Filed: 04/03/2018 5:31 AM Note Text: DATE OF VISIT: 03/17/2018 REASON FOR VISIT: Non-healing lower extremity wound. HISTORY OF PRESENT ILLNESS: Rosa Beltran is a 81 year old female who presents to the [facility] for further evaluation and management of a non-healing leg wound. She has a past medical history significant for atrial fibrillation on Coumadin, coronary artery disease,?COPD, hypertension, dyslipidemia and CHF.?Patient has felt mildly short of breath over the past month. ?Increase with exertion and lying flat. She is on 40 mg of Lasix twice a day. She still is urinating appropriately. She has not had any chest pain or palpitations. ?Fever, chills, or sweats. ?No productive cough. ?No wheezing. Upon taking patients vitals, her SPO2 level was from 76% - 85%. Patient stated she had shortness of breath. She was unable to finish her sentences without catching her breath. The tips of her fingers were cyanotic. Patient was sent to the ER for further evaluation. Tiffanie BARBOSA wheeled patient to the ER. INTERVAL HISTORY: Patient was sent tot he ED during her previous visit due to low oxygenation. She is now on 2 L of oxygen at all times. She denies any breathing difficulty at this time. She is an 81 year old white female with a long-standing history of swelling in her lower extremities secondary to lymphedema. Approximately 2 years ago, she sustained a fracture to her right ankle, requiring surgical intervention. The operative site became infected, and required prolonged treatment and eventually a skin graft for complete wound closure. As a result, the patient's ambulatory capacity has been impaired. Furthermore, she is morbidly obese which limits her ambulation. The patient leads a relatively sedentary lifestyle and requires a walker for ambulation. She spends a great part of her day in a sitting position. She sleeps with the head of the bed elevated. Swelling in her lower extremities has been on-going for many years. The patient has undergone a battery of diagnostic tests. A non-invasive lower extremity arterial study in December 2016 reveals normal- ankle brachial indices, bilaterally. Venous doppler examination on 01/14 reveals incompetence of the great saphenous veins, bilaterally. There is also incompetence of the small saphenous veins, bilaterally and the right accessory saphenous vein. At present, she has three wounds, 2 on the right distal leg and the other is on the left posterior calf. The left leg wound has been present for over a year and was managed with silver alginate, NPWT, Santyl, serial sharp wound debridements, compression therapy using Surepress and compression pumps. Patient's wound cultures over the past several months have grown out Enterobacter cloacae, MRSA, coag-staph aureus, and in January grew out Pseudomonas, managed with oral antibiotics. IIn July of this year, she developed a new wound on the right lateral distal leg, then in July, she experience cellulitis of both legs requiring hospitalization. In the last year, she has been followed by Dr. Jaskaran Chance at the [facility]. It was felt that her home support system was inadequate and that she may not have the resources in her home environment to appropriately care for her needs. In this regard, a geriatric social work professor consultation had been recommended on several occassions, but patient apparently insisted on remaining in her home environment despite that there was thought that is may be less than optimal. The patient is here at the [facility] for a second opinion regarding management of the abovementioned bilateral lower extremity wounds. She offers no other complaints. She denies any fevers, chills, wound-related pain or other related symptoms. 02/10/18 Patient presents for follow-up. There is one wound remaining. Patient has increased drainage (green-tinged). There is significant maceration to the periwound skin. Patient denies any wound purulence, fevers, chills. To date, wounds have been managed with sharp debridement, collagen, compression therapy and nutritional support. She offers no new complaints. The edema in her lower extremities is well-controlled. She denies any fever, chills or other related symptoms. 03/08/18 Patient here for a wound check. She continues to have significant maceration to her right leg wound area. There has been some oozing partly because of increased edema to her lowe extremities. Advised patient to follow-up with her PCP for further edema management. Patient does have a history of CHF, venous incompetency and PAD involving the right lower extremity. His right leg wound is currently managed with collagen, mild compression, sharp debridement, leg elevation as well as nutritional support. She denies fever or chills. PAST MEDICAL HISTORY Diagnosis Date - Acquired hypothyroidism - Acute respiratory failure with hypoxia (HCC) 09/30/2017 - Atrial fibrillation ([facility]) - CAD (coronary artery disease) Dr. Brenda Awan Hts, Promus element KIMMY LAD 11/20/2012, Stress test 04/2014 inferoapical reversible ischemia,small LVEF 48- 50%, LHC 12/2014 L main-normal, LAD widely patent, Cx diffuse mild luminal irregularities with 80%focal stenosis distal, RCA dominant with minimal luminal irregularities. 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 - Pure hypercholesterolemia - Rheumatoid arthritis ([facility]) 2007 - Sleep apnea - Stented coronary artery 12/29/2016 PAST SURGICAL HISTORY Procedure Laterality Date - CC CORONARY STENT 11/20/2012 KIMMY LAD - CC CORONARY STENT 12/20/2014 KIMMY, Cfx - SECTION HX - COLONOSCOPY 06/10/2017 [facility], Nonspecific cecal ulcer - GASTRIC BYPASS HX 1986 - HERNIA REPAIR HX 1987; 1989 - PAST SURGICAL HISTORY OF Right 09/2015 right tibia fracture ORIF - PAST SURGICAL HISTORY OF Right 01/20/2016 Removal of hardware, right tibia - TOTAL KNEE REPLACEMENT Right 2003 [facility]. - TOTAL KNEE REPLACEMENT Left 2004 [facility]. MEDICATIONS ergocalciferol, vitamin D2, (DRISDOL) 50,000 unit capsule Take 1 capsule by mouth once each week. levothyroxine (LEVOXYL) 100 mcg tablet Take 1 tablet by mouth once daily. Take on empty stomach. For Thyroid. gabapentin (NEURONTIN) 300 mg capsule Take 1 capsule by mouth twice daily. metoprolol tartrate, short acting, (LOPRESSOR) 50 mg tablet TAKE ONE TABLET BY MOUTH TWICE DAILY furosemide (LASIX) 40 mg tablet Take 1 tablet by mouth twice daily. COMPOUNDED PRESCRIPTION Calcium Alginate 4x4 Dressing, change daily Dx: Blister left leg with infection S80.822A, L08.9; Lymphedema I89.0. Wound dimensions: 4 x 3 cm acetaminophen (TYLENOL) 500 mg tablet Take 1,000 mg by mouth every 8 hours as needed. aspirin, enteric coated (ASPIRIN, ENTERIC COATED) 81 mg EC tablet Take 81 mg by mouth once daily. warfarin (COUMADIN) 1 mg tablet Take 1 mg by mouth daily as directed. Take 1 tablet (1mg) by mouth once daily. Take with 1 x 3mg tablet to total 4mg by mouth once daily. warfarin (COUMADIN) 3 mg tablet Take 3 mg by mouth daily as directed. Take 1 tablet (3mg) by mouth once daily. Take with 1 x 1mg tablet to total 4mg by mouth once daily. lisinopril (ZESTRIL) 2.5 mg tablet Take 2.5 mg by mouth once daily. omeprazole (PRILOSEC) 20 mg capsule Take 20 mg by mouth once daily. spironolactone (ALDACTONE) 25 mg tablet Take 25 mg by mouth once daily. docusate sodium (COLACE) 100 mg capsule Take 100 mg by mouth once daily as needed. therapeutic multivitamin w/ iron (THERAGRAN-M) 9 mg iron-400 mcg tablet Take 1 tablet by mouth once daily. ALLERGIES No Known Allergies FAMILY HISTORY: Patient's father in his 70s with a history of arthritis. Her mother at the age of 90 with a history of arthritis. SOCIAL HISTORY Patient is a , lives alone, but has a son nearby. She has 6 children. Substance Use Topics - Smoking status: Passive Smoke Exposure - Never Smoker - Smokeless tobacco: Never Used Comment: smoked for 40 years - Alcohol use No REVIEW OF SYSTEM: PAIN ASSESSMENT: Negative for pain, history of chronic pain, or current treatment for a chronic pain condition. GENERAL: No weight loss, malaise or fevers HEENT: Negative for frequent or significant headaches, No changes in hearing or vision, no nose bleeds or other nasal problems NECK: Negative for lumps, goiter, pain and significant neck swelling RESPIRATORY: Negative for cough, hemoptysis, wheezing, positive for shortness of breath CARDIOVASCULAR: Negative for chest pain,palpitations; has chronic leg swelling GI: No nausea, vomiting, or diarrhea : No history of dysuria, frequency or incontinence MUSCULOSKELETAL: Negative for joint pain or swelling, back pain or muscle pain SKIN: As per HPI. Negative for any other lesions, rash, and itching PSYCH: Negative for sleep disturbance, mood disorder and recent psychosocial stressors HEMATOLOGY/LYMPHOLOGY: Negative for prolonged bleeding, bruising easily or swollen nodes ENDOCRINE: Negative for cold or heat intolerance, polyuria, polydipsia and goiter NEURO: No history of headaches, syncope, paralysis, seizures or tremors 03/17/18 1415 BP: 137/62 Pulse: 73 Resp: 16 Temp: 36.8 ?C (97.8 ?F) TempSrc: Oral SpO2: 95% Weight: 88.1 kg (194 lb 4.8 oz) PHYSICAL EXAMINATION: HEENT: PERRLA , sclera non-icteric, EOM intact, mucous membrane moist, pink and w/o lesions Comments: Neck: Supple, no bruit, no masses, trachea midline Comments: Chest: Lungs clear to auscultation, no accessory muscle use for respiration Comments: Heart: Regular rate/rhythm, normal S1,S2, no murmur, rubs or gallops Comments: Abdomen: Soft, non-tender, non-distended, + bowel sounds, no bruit, no organomegaly Comments: Extremity: Dorsalis pedis : Present (Y) Absent Diminished Doppler Posterior Tibialis: Present (Y) Absent Diminished Doppler Capillary Refill: < 3 sec. (Y) > 3 sec. 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 10/14/17 WBC 8.4, Hgb 12.2, Hct 38.5, PLT 211, Glu 91, BUN 24, Cr 0.88, Na 136, K 4.7, Cl 100, Albumin 3.6, Total protein 9.1 11/04/17 Venous Doppler Study Bilateral Lower Extremities IMPRESSION RIGHT SIDE - DEEP VEINS Negative for acute deep vein thrombosis in vessels visualized. Positive for valvular incompetency in the common femoral vein and femoral vein. Lymph node noted, within the groin, measuring 2.75 x 2.71 x .809cm. Cystic structure noted, within the popliteal fossa, measuring 2.17 x 2.67 x 1.49cm. ? RIGHT SIDE - SUPERFICIAL VEINS Positive for valvular incompetency in the great saphenous vein. REFLUX ONLY NOTED AT PROXIMAL THIGH. Vessel becomes tortuous branching from proximal to distal calf. The anterior lateral branch is negative for incompetency. Positive for valvular incompetency in the small saphenous vein. REFLUX ONLY NOTED AT DISTAL CALF. LEFT SIDE - DEEP VEINS Negative for acute deep vein thrombosis in vessels visualized. Positive for valvular incompetency in the femoral vein at the mid thigh. LEFT SIDE - SUPERFICIAL VEINS Positive for valvular incompetency in the great saphenous vein. REFLUX ONLY NOTED AT MID CALF. Negative for valvular incompetency in the small saphenous vein. No previous scans for comparison; however, chronic appearing superficial thrombophlebitis in the great saphenous vein at the distal calf. ? Technologist: Cleo HOBBST Ordering physician: Luis Simons ? Interpreting physician: Vishal Torres MD, RVT ? 01/24/17 Segmental arterial doppler study bilateral lower extremities Findings: NIMISHA 1.04 to the right and 1.0 to the left. Based upon the findings of this resting non-invasive lower extremity arterial study, arterial perfusion to ankle level appears to be relatively normal bilaterally. Triphasic and biphasic waveforms were noted at ankle level bilaterally. Resting ankle-brachial indices were bilaterally normal. ? 08/01/17 X-Ray 3-View Right Ankle Impression: There is prior open reduction internal fixation of the fibula which appears to be relatively intact allowing for advanced bony osteopenia. There is an irregular appearance of the lateral side distal tibia which is compatible with a prior fracture for which a new fracture on the lateral side is not excluded. The fracture could be potentially be associated with new trauma or potentially infection. Recommend consideration for follow-up study such as MRI or potentially three-phase bone scan. ? Flattened appearance of the arch of the foot with degenerative change of the tarsotarsal joints. ? Diffuse soft tissue swelling. ? Electronically Signed: Kelly Camarena MD at 20:15 EDT Tel , Service support , ? 10/14/17 XR 2 View Tib/Fib (Left) Findings: Left tibia-fibula: Tibial component of the joint prosthesis noted without associated abnormal lucency. No acute fracture or bony destruction. Right tibia and fibula: Plate and screw fixation remote distal fibular fracture. There is also remote tibial fracture with residual posterior angulation. Ghost tracks from previous tibial hardware. Tibial component of the joint prosthesis noted without associated abnormal lucency. No acute fracture or bony destruction. ? Stereotype Finisher: DWIGHT ? Transcribe Date/Time: Oct 14 2017 ?4:02P Dictated by : ZURDO SANTOS MD ? 10/14/17 XR 2 View Tib/Fib (Right) Findings: Left tibia-fibula: Tibial component of the joint prosthesis noted without associated abnormal lucency. No acute fracture or bony destruction. Right tibia and fibula: Plate and screw fixation remote distal fibular fracture. There is also remote tibial fracture with residual posterior angulation. Ghost tracks from previous tibial hardware. Tibial component of the joint prosthesis noted without associated abnormal lucency. No acute fracture or bony destruction. ? Stereotype Finisher: DWIGHT ? Transcribe Date/Time: Oct 14 2017 ?4:02P Dictated by : ZURDO SANTOS MD ? 10/14/17 XR 2 View Tib/Fib (Left) Findings: Left tibia-fibula: Tibial component of the joint prosthesis noted without associated abnormal lucency. No acute fracture or bony destruction. Right tibia and fibula: Plate and screw fixation remote distal fibular fracture. There is also remote tibial fracture with residual posterior angulation. Ghost tracks from previous tibial hardware. Tibial component of the joint prosthesis noted without associated abnormal lucency. No acute fracture or bony destruction. WOUND ASSESSMENT: Wound Number: 1 First Assessed Date: 10/14/17 Pre-existing: YES Location: Leg Orientation: Right, Lateral and Distal Wound Etiology: Venous Depth of Tissue Injury (Non-pressure): Full Thickness Diabetic Wounds:N/A Pressure Injury: N/A Pre-debridement Measurements Initial (First Visit): 3.5 cm length x 4.0 cm width x 0.5 cm depth Pre-debridement Measurements Initial (Current Visit): 6.0 cm length x 5.4 cm width x 1.6 cm depth Post Debridement Measurement (Current): N/A % Healing Rate/#Weeks: - 7.4 % -- Week 20 Wound Bed (Post-debridement): 100% red % of Healthy tissue: Undermining: No Tunneling: No Tendon/bone exposed: NO Wound Edge/Margins: Irregular wound edges and Edge attached to base Periwound Tissue: Mild erythema, Wet (macerated), and Edema Exudate Amount:Moderate Consistency:Serous/Green Odor:Minimal Infection/Critical Colonization Localized s/s: Non-healing and Increased exudate Systemic s/s: None Local/systemic Rx: None Wound Healing Status: Chronic Clinically presenting as: Stalled wound healing Current topical treatment: Collagen Wound Number: 2 First Assessed Date: 10/14/17 Pre-existing: YES Location: Leg Orientation: Right, Medial and Distal Wound Etiology: Surgical Depth of Tissue Injury (Non-pressure): Partial Thickness Diabetic Wounds:N/A Pressure Injury: N/A Pre-Measurements Initial (First Visit): 0.5 cm length x 0.4 cm width x 0.1 cm depth Post Measurement (Current): Epithelialized % Healing Rate/#Weeks: Week 1 -- Healed Wound Bed (Post-debridement): % of Healthy tissue: Undermining: No Tunneling: No Tendon/bone exposed: NO Wound Edge/Margins: Normal, intact, Irregular wound edges and Edge attached to base Periwound Tissue: Normal, intact,uninvolved tissue and Dry,flaky Exudate Amount: None Consistency: None Odor:None Infection/Critical Colonization Localized s/s: None and Edema Systemic s/s: None Local/systemic Rx: None Wound Healing Status: Chronic Clinically presenting as: Healed Current topical treatment: Iodoflex Wound Number: 4 First Assessed Date: 03/08/18 Pre-existing: YES Location: Leg (calf) Orientation: Right anterior ace Wound Etiology: Venous Depth of Tissue Injury (Non-pressure): Full Thickness Diabetic Wounds:N/A Pressure Injury: N/A Pre-Measurements Initial (First Visit): 2.0 cm length x 2.5 cm width x 0.1 cm depth Post Measurement (Current): N/A % Healing Rate/#Weeks: New wound today Wound Bed (Post-debridement): N/A % of Healthy tissue: Undermining: No Tunneling: No Tendon/bone exposed: NO Wound Edge/Margins: Well-defined wound edges and Edge attached to base Periwound Tissue: [employer], dry and intact, No fluctuance, induration or advancing soft tissue necrosis or ischemia Exudate: Minimal Consistency: Serous Odor:None Infection/Critical Colonization: N/A Localized s/s: None Systemic s/s: None Local/systemic Rx: None Wound Healing Status: New Clinically presenting as: Stable Current topical treatment: None Wound Number: 5 First Assessed Date: 03/08/18 Pre-existing: YES Location: Foot Orientation: Right lateral Wound Etiology: Venous Depth of Tissue Injury (Non-pressure): Full Thickness Diabetic Wounds:N/A Pressure Injury: N/A Pre-Measurements Initial (First Visit): 1.5 cm length x 1.0 cm width x 0.1 cm depth Post Measurement (Current): N/A % Healing Rate/#Weeks: New wound today Wound Bed (Post-debridement): N/A % of Healthy tissue: Undermining: No Tunneling: No Tendon/bone exposed: NO Wound Edge/Margins: Well-defined wound edges and Edge attached to base Periwound Tissue: [employer], dry and intact, No fluctuance, induration or advancing soft tissue necrosis or ischemia Exudate: Minimal Consistency: Serous Odor:None Infection/Critical Colonization: N/A Localized s/s: None Systemic s/s: None Local/systemic Rx: None Wound Healing Status: New Clinically presenting as: Stable Current topical treatment: None Wound Number: 3 First Assessed Date: 10/14/17 Pre-existing: YES Location: Leg (calf) Orientation: Left and Posterior Wound Etiology: Venous Depth of Tissue Injury (Non-pressure): Full Thickness Diabetic Wounds:N/A Pressure Injury: N/A Pre-Measurements Initial (First Visit): 1.3 cm length x 1.2 cm width x 0.1 cm depth Post Measurement (Current): Epithelialized % Healing Rate/#Weeks: 100 % -- Week 5 Wound Bed (Post-debridement): 100% [employer] % of Healthy tissue: Undermining: No Tunneling: No Tendon/bone exposed: NO Wound Edge/Margins: Well-defined wound edges and Edge attached to base Periwound Tissue: [employer], dry and intact, No fluctuance, induration or advancing soft tissue necrosis or ischemia Exudate: Nonr Consistency: None Odor:None Infection/Critical Colonization: N/A Localized s/s: None Systemic s/s: None Local/systemic Rx: None Wound Healing Status: Chronic Clinically presenting as: Healed Current topical treatment: Collagen IMPRESSION: 1. Non-healing right and left lower extremity wounds ( #1 and #3) in the setting of chronic venous insufficiency with secondary lymphedema. 2. Recurrent right medial leg wound s/p STSG in the setting of chronic edema. 3. Significant lower extremity edema secondary to underlying chronic venous insufficiency with secondary lymphedema. 4. Multiple risk factors or co-morbidities that may contribute to wound healing difficulties include hypothyroid disease, chronic atrial fibrillation on anticoagulation, coronary artery disease, COPD, dyslipidemia, hypertension, muscle weakness, osteoarthritis, GERD, depression and obesity. 5. Wound cultures positive for Enterobacter cloacae and Staph aureus most likely increased colonization. 6. Very good glucose control based on recent HgbA1c. 7. Zinc insufficiency ( precursor for collagen synthesis. 8. No significant arterial disease based on recent PVRs. 9. No evidence of osteomyelitis based on recent XRs. 10. Valvular incompetency involving the right common femoral vein , right femoral vein, right great saphenous vein, left femoral vein (mid thigh) and left great saphenous vein (mid thigh). TREATMENT PLAN: Debridement Type: Autolytic Enzymatic Mechanical Surgical Sharp (N) Other: Wound Dressing: See Nursing Notes for details. . Topical Rx: Wound # 1Right lateral distal leg: Wounds washed with dakins solution 0.125%. Pat dry. Dakins moistened gauze 0.125% was packed in to the wound bed. Equal parts of hydrocortisone cream 1% and zinc to all excoriated areas. Site covered with dry max, abd pads and kerlix wrap. Tape to secure. 6 ankit wrap applied from behind the toes to 1 below the knee. Change dressings daily. Left lower leg: Moisturized with vitamin AANDD ointment. 6 ankit applied from behind the toes to 1 below the knee. 5. Right anterior ace: (NEW) L: 2.0 cm x W: 2.5 cm x D: 0.1 cm. Equal parts of hydrocortisone cream 1% and zinc to all excoriated areas. Site covered with dry max, 6. Right lateral foot(NEW: L: 1.5 cm x W: 1.0 cm x D: 0.1 cm. Equal parts of hydrocortisone cream 1% and zinc to all excoriated areas. Site covered with dry max, Equal parts of hydrocortisone cream 1% and zinc to all excoriated areas. Area padded to protect with abd's. Systemis Rx: Begin: Doxycycline to prevent reoccurant [id number] mg PO BID x 14 days then 7 days off. Indefinitely CirAids to be ordered for maintenance therapy. Use pneumatic compression pumps twice daily with 40-50 mmhg compression Nutritional Support: MVI, Zinc Supplement and Protein Supplement Patient is instructed to continue a healthy, well-balanced diet for nutritional support for optimal healing. Protein is the most important nutrient for wound healing. Eating adequate amounts of protein allows the body to create new cells and chemicals to heal the wound, and increases the body?s ability to fight infection. Eating high protein foods daily is recommended such as: lean meats, fish, poultry, cheese, milk, yogurt, eggs and legumes. Vitamins and minerals provide a full range of nutrients for wound healing. It can help jump start the body's production of cells and chemicals needed for healing. Vitamins and minerals can be obtained through healthy foods in your diet and by taking a multiple vitamin supplement. Vitamin C is essential for collagen synthesis. Collagen and fibroblasts compose the basis for the structure of a new wound bed. Also, a deficiency of Vitamin C prolongs the healing time and contributes to reduced resistance to infection. Laboratory: We will obtain wound cultures to determine bacterial load. She will be treated accordingly. Wound cultures are collected to assess level of bacterial bio-burden. Excessive bio-burden can result in inflammatory and proliferative phase stagnation as well as compromise of normal wound healing physiology. Bacterial proliferation, biofilm production, critical colonization and the development of resistant organism can lead to wound infection, wound deterioration and devastating tissue loss. Knowing the organism that populated the wound can help direct therapy, particularly anti-microbial dressing choices. Vascular Evaluation: PVRs for both lower extremities to evaluate for arterial insufficiency completed. Pt advised to see Dr. Tavo Mcnair of Vascular Surgery for further evaluation given her underlying PVD to help with wound healing. Follow-up is scheduled in 1 week, sooner with any concerns or worsening symptoms. Luis Simons CNP Charge Capture: [id number] CNOV Observed: 03/17/2018 Status: COMPLETED Source: [facility] 2:15 PM [facility] OTHER CAMP[facility] REPOSITORY Office Visit ([facility]) ROSA BELTRAN ([id number]) 1935 F Date Time Provider Department 03/17/18 2:15 PM LUIS SIMONS, (GROUND SYSTEMS ENGINEER) [facility] During your visit today, we recorded the following information about you: Temperature Pulse Respiration Blood pressure 98.9 degrees 62/minute 17/minute 122/65 Luis Simons APRN.CNP 04/03/2018 5:31 AM Signed DATE OF VISIT: 03/17/2018 REASON FOR VISIT: Non-healing lower extremity wound. HISTORY OF PRESENT ILLNESS: Rosa Beltran is a 81 year old female who presents to the [facility] for further evaluation and management of a non-healing leg wound. She has a past medical history significant for atrial fibrillation on Coumadin, coronary artery disease,?COPD, hypertension, dyslipidemia and CHF.?Patient has felt mildly short of breath over the past month. ?Increase with exertion and lying flat. She is on 40 mg of Lasix twice a day. She still is urinating appropriately. She has not had any chest pain or palpitations. ?Fever, chills, or sweats. ?No productive cough. ?No wheezing. Upon taking patients vitals, her SPO2 level was from 76% - 85%. Patient stated she had shortness of breath. She was unable to finish her sentences without catching her breath. The tips of her fingers were cyanotic. Patient was sent to the ER for further evaluation. Tiffanie BARBOSA wheeled patient to the ER. INTERVAL HISTORY: Patient was sent tot he ED during her previous visit due to low oxygenation. She is now on 2 L of oxygen at all times. She denies any breathing difficulty at this time. She is an 81 year old white female with a long-standing history of swelling in her lower extremities secondary to lymphedema. Approximately 2 years ago, she sustained a fracture to her right ankle, requiring surgical intervention. The operative site became infected, and required prolonged treatment and eventually a skin graft for complete wound closure. As a result, the patient's ambulatory capacity has been impaired. Furthermore, she is morbidly obese which limits her ambulation. The patient leads a relatively sedentary lifestyle and requires a walker for ambulation. She spends a great part of her day in a sitting position. She sleeps with the head of the bed elevated. Swelling in her lower extremities has been on-going for many years. The patient has undergone a battery of diagnostic tests. A non-invasive lower extremity arterial study in December 2016 reveals normal-ankle brachial indices, bilaterally. Venous doppler examination on 01/14 reveals incompetence of the great saphenous veins, bilaterally. There is also incompetence of the small saphenous veins, bilaterally and the right accessory saphenous vein. At present, she has three wounds, 2 on the right distal leg and the other is on the left posterior calf. The left leg wound has been present for over a year and was managed with silver alginate, NPWT, Santyl, serial sharp wound debridements, compression therapy using Surepress and compression pumps. Patient's wound cultures over the past several months have grown out Enterobacter cloacae, MRSA, coag-staph aureus, and in January grew out Pseudomonas, managed with oral antibiotics. IIn July of this year, she developed a new wound on the right lateral distal leg, then in July, she experience cellulitis of both legs requiring hospitalization. In the last year, she has been followed by Dr. Jaskaran Chance at the [facility]. It was felt that her home support system was inadequate and that she may not have the resources in her home environment to appropriately care for her needs. In this regard, a geriatric social work professor consultation had been recommended on several occassions, but patient apparently insisted on remaining in her home environment despite that there was thought that is may be less than optimal. The patient is here at the [facility] for a second opinion regarding management of the abovementioned bilateral lower extremity wounds. She offers no other complaints. She denies any fevers, chills, wound-related pain or other related symptoms. 02/10/18 Patient presents for follow-up. There is one wound remaining. Patient has increased drainage (green-tinged). There is significant maceration to the periwound skin. Patient denies any wound purulence, fevers, chills. To date, wounds have been managed with sharp debridement, collagen, compression therapy and nutritional support. She offers no new complaints. The edema in her lower extremities is well-controlled. She denies any fever, chills or other related symptoms. 03/08/18 Patient here for a wound check. She continues to have significant maceration to her right leg wound area. There has been some oozing partly because of increased edema to her lowe extremities. Advised patient to follow-up with her PCP for further edema management. Patient does have a history of CHF, venous incompetency and PAD involving the right lower extremity. His right leg wound is currently managed with collagen, mild compression, sharp debridement, leg elevation as well as nutritional support. She denies fever or chills. PAST MEDICAL HISTORY Diagnosis Date - Acquired hypothyroidism - Acute respiratory failure with hypoxia (HCC) 09/30/2017 - Atrial fibrillation ([facility]) - CAD (coronary artery disease) Dr. Brenda Awan Hts, Promus element KIMMY LAD 11/20/2012, Stress test 04/2014 inferoapical reversible ischemia,small LVEF 48-50%, LHC 12/2014 L main-normal, LAD widely patent, Cx diffuse mild luminal irregularities with 80%focal stenosis distal, RCA dominant with minimal luminal irregularities. 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 - Pure hypercholesterolemia - Rheumatoid arthritis ([facility]) 2007 - Sleep apnea - Stented coronary artery 12/29/2016 PAST SURGICAL HISTORY Procedure Laterality Date - CC CORONARY STENT 11/20/2012 KIMMY LAD - CC CORONARY STENT 12/20/2014 KIMMY, Cfx - SECTION HX - COLONOSCOPY 06/10/2017 [facility], Nonspecific cecal ulcer - GASTRIC BYPASS HX 1987 - HERNIA REPAIR HX 1988; 1990 - PAST SURGICAL HISTORY OF Right 09/2015 right tibia fracture ORIF - PAST SURGICAL HISTORY OF Right 01/20/2016 Removal of hardware, right tibia - TOTAL KNEE REPLACEMENT Right 2003 [facility]. - TOTAL KNEE REPLACEMENT Left 2004 [facility]. MEDICATIONS ergocalciferol, vitamin D2, (DRISDOL) 50,000 unit capsule Take 1 capsule by mouth once each week. levothyroxine (LEVOXYL) 100 mcg tablet Take 1 tablet by mouth once daily. Take on empty stomach. For Thyroid. gabapentin (NEURONTIN) 300 mg capsule Take 1 capsule by mouth twice daily. metoprolol tartrate, short acting, (LOPRESSOR) 50 mg tablet TAKE ONE TABLET BY MOUTH TWICE DAILY furosemide (LASIX) 40 mg tablet Take 1 tablet by mouth twice daily. COMPOUNDED PRESCRIPTION Calcium Alginate 4x4 Dressing, change daily Dx: Blister left leg with infection S80.822A, L08.9; Lymphedema I89.0. Wound dimensions: 4 x 3 cm acetaminophen (TYLENOL) 500 mg tablet Take 1,000 mg by mouth every 8 hours as needed. aspirin, enteric coated (ASPIRIN, ENTERIC COATED) 81 mg EC tablet Take 81 mg by mouth once daily. warfarin (COUMADIN) 1 mg tablet Take 1 mg by mouth daily as directed. Take 1 tablet (1mg) by mouth once daily. Take with 1 x 3mg tablet to total 4mg by mouth once daily. warfarin (COUMADIN) 3 mg tablet Take 3 mg by mouth daily as directed. Take 1 tablet (3mg) by mouth once daily. Take with 1 x 1mg tablet to total 4mg by mouth once daily. lisinopril (ZESTRIL) 2.5 mg tablet Take 2.5 mg by mouth once daily. omeprazole (PRILOSEC) 20 mg capsule Take 20 mg by mouth once daily. spironolactone (ALDACTONE) 25 mg tablet Take 25 mg by mouth once daily. docusate sodium (COLACE) 100 mg capsule Take 100 mg by mouth once daily as needed. therapeutic multivitamin w/ iron (THERAGRAN-M) 9 mg iron-400 mcg tablet Take 1 tablet by mouth once daily. ALLERGIES No Known Allergies FAMILY HISTORY: Patient's father in his 70s with a history of arthritis. Her mother at the age of 90 with a history of arthritis. SOCIAL HISTORY Patient is a , lives alone, but has a son nearby. She has 6 children. Substance Use Topics - Smoking status: Passive Smoke Exposure - Never Smoker - Smokeless tobacco: Never Used Comment: smoked for 40 years - Alcohol use No REVIEW OF SYSTEM: PAIN ASSESSMENT: Negative for pain, history of chronic pain, or current treatment for a chronic pain condition. GENERAL: No weight loss, malaise or fevers HEENT: Negative for frequent or significant headaches, No changes in hearing or vision, no nose bleeds or other nasal problems NECK: Negative for lumps, goiter, pain and significant neck swelling RESPIRATORY: Negative for cough, hemoptysis, wheezing, positive for shortness of breath CARDIOVASCULAR: Negative for chest pain,palpitations; has chronic leg swelling GI: No nausea, vomiting, or diarrhea : No history of dysuria, frequency or incontinence MUSCULOSKELETAL: Negative for joint pain or swelling, back pain or muscle pain SKIN: As per HPI. Negative for any other lesions, rash, and itching PSYCH: Negative for sleep disturbance, mood disorder and recent psychosocial stressors HEMATOLOGY/LYMPHOLOGY: Negative for prolonged bleeding, bruising easily or swollen nodes ENDOCRINE: Negative for cold or heat intolerance, polyuria, polydipsia and goiter NEURO: No history of headaches, syncope, paralysis, seizures or tremors 03/17/18 1415 BP: 137/62 Pulse: 73 Resp: 16 Temp: 36.8 ?C (97.8 ?F) TempSrc: Oral SpO2: 95% Weight: 88.1 kg (194 lb 4.8 oz) PHYSICAL EXAMINATION: HEENT: PERRLA , sclera non-icteric, EOM intact, mucous membrane moist, pink and w/o lesions Comments: Neck: Supple, no bruit, no masses, trachea midline Comments: Chest: Lungs clear to auscultation, no accessory muscle use for respiration Comments: Heart: Regular rate/rhythm, normal S1,S2, no murmur, rubs or gallops Comments: Abdomen: Soft, non-tender, non-distended, + bowel sounds, no bruit, no organomegaly Comments: Extremity: Dorsalis pedis : Present (Y) Absent Diminished Doppler Posterior Tibialis: Present (Y) Absent Diminished Doppler Capillary Refill: < 3 sec. (Y) > 3 sec. 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 10/14/17 WBC 8.4, Hgb 12.2, Hct 38.5, PLT 211, Glu 91, BUN 24, Cr 0.88, Na 136, K 4.7, Cl 100, Albumin 3.6, Total protein 9.1 11/04/17 Venous Doppler Study Bilateral Lower Extremities IMPRESSION RIGHT SIDE - DEEP VEINS Negative for acute deep vein thrombosis in vessels visualized. Positive for valvular incompetency in the common femoral vein and femoral vein. Lymph node noted, within the groin, measuring 2.75 x 2.71 x .809cm. Cystic structure noted, within the popliteal fossa, measuring 2.17 x 2.67 x 1.49cm. ? RIGHT SIDE - SUPERFICIAL VEINS Positive for valvular incompetency in the great saphenous vein. REFLUX ONLY NOTED AT PROXIMAL THIGH. Vessel becomes tortuous branching from proximal to distal calf. The anterior lateral branch is negative for incompetency. Positive for valvular incompetency in the small saphenous vein. REFLUX ONLY NOTED AT DISTAL CALF. LEFT SIDE - DEEP VEINS Negative for acute deep vein thrombosis in vessels visualized. Positive for valvular incompetency in the femoral vein at the mid thigh. LEFT SIDE - SUPERFICIAL VEINS Positive for valvular incompetency in the great saphenous vein. REFLUX ONLY NOTED AT MID CALF. Negative for valvular incompetency in the small saphenous vein. No previous scans for comparison; however, chronic appearing superficial thrombophlebitis in the great saphenous vein at the distal calf. ? Technologist: Cleo Magdaleno RVT Ordering physician: Luis Simons ? Interpreting physician: Vishal Torres MD, RVT ? 01/24/17 Segmental arterial doppler study bilateral lower extremities Findings: NIMISHA 1.04 to the right and 1.0 to the left. Based upon the findings of this resting non-invasive lower extremity arterial study, arterial perfusion to ankle level appears to be relatively normal bilaterally. Triphasic and biphasic waveforms were noted at ankle level bilaterally. Resting ankle- brachial indices were bilaterally normal. ? 08/01/17 X-Ray 3-View Right Ankle Impression: There is prior open reduction internal fixation of the fibula which appears to be relatively intact allowing for advanced bony osteopenia. There is an irregular appearance of the lateral side distal tibia which is compatible with a prior fracture for which a new fracture on the lateral side is not excluded. The fracture could be potentially be associated with new trauma or potentially infection. Recommend consideration for follow- up study such as MRI or potentially three-phase bone scan. ? Flattened appearance of the arch of the foot with degenerative change of the tarsotarsal joints. ? Diffuse soft tissue swelling. ? Electronically Signed: Kelly Camarena MD at 20:15 EDT Tel , Service support , ? 10/14/17 XR 2 View Tib/Fib (Left) Findings: Left tibia-fibula: Tibial component of the joint prosthesis noted without associated abnormal lucency. No acute fracture or bony destruction. Right tibia and fibula: Plate and screw fixation remote distal fibular fracture. There is also remote tibial fracture with residual posterior angulation. Ghost tracks from previous tibial hardware. Tibial component of the joint prosthesis noted without associated abnormal lucency. No acute fracture or bony destruction. ? Stereotype Finisher: DWIGHT ? Transcribe Date/Time: Oct 14 2017 ?4:02P Dictated by : ZURDO SANTOS MD ? 10/14/17 XR 2 View Tib/Fib (Right) Findings: Left tibia-fibula: Tibial component of the joint prosthesis noted without associated abnormal lucency. No acute fracture or bony destruction. Right tibia and fibula: Plate and screw fixation remote distal fibular fracture. There is also remote tibial fracture with residual posterior angulation. Ghost tracks from previous tibial hardware. Tibial component of the joint prosthesis noted without associated abnormal lucency. No acute fracture or bony destruction. ? Stereotype Finisher: DWIGHT ? Transcribe Date/Time: Oct 14 2017 ?4:02P Dictated by : ZURDO SANTOS MD ? 10/14/17 XR 2 View Tib/Fib (Left) Findings: Left tibia-fibula: Tibial component of the joint prosthesis noted without associated abnormal lucency. No acute fracture or bony destruction. Right tibia and fibula: Plate and screw fixation remote distal fibular fracture. There is also remote tibial fracture with residual posterior angulation. Ghost tracks from previous tibial hardware. Tibial component of the joint prosthesis noted without associated abnormal lucency. No acute fracture or bony destruction. WOUND ASSESSMENT: Wound Number: 1 First Assessed Date: 10/14/17 Pre-existing: YES Location: Leg Orientation: Right, Lateral and Distal Wound Etiology: Venous Depth of Tissue Injury (Non-pressure): Full Thickness Diabetic Wounds:N/A Pressure Injury: N/A Pre-debridement Measurements Initial (First Visit): 3.5 cm length x 4.0 cm width x 0.5 cm depth Pre-debridement Measurements Initial (Current Visit): 6.0 cm length x 5.4 cm width x 1.6 cm depth Post Debridement Measurement (Current): N/A % Healing Rate/#Weeks: - 7.4 % -- Week 20 Wound Bed (Post-debridement): 100% red % of Healthy tissue: Undermining: No Tunneling: No Tendon/bone exposed: NO Wound Edge/Margins: Irregular wound edges and Edge attached to base Periwound Tissue: Mild erythema, Wet (macerated), and Edema Exudate Amount:Moderate Consistency:Serous/Green Odor:Minimal Infection/Critical Colonization Localized s/s: Non-healing and Increased exudate Systemic s/s: None Local/systemic Rx: None Wound Healing Status: Chronic Clinically presenting as: Stalled wound healing Current topical treatment: Collagen Wound Number: 2 First Assessed Date: 10/14/17 Pre-existing: YES Location: Leg Orientation: Right, Medial and Distal Wound Etiology: Surgical Depth of Tissue Injury (Non-pressure): Partial Thickness Diabetic Wounds:N/A Pressure Injury: N/A Pre-Measurements Initial (First Visit): 0.5 cm length x 0.4 cm width x 0.1 cm depth Post Measurement (Current): Epithelialized % Healing Rate/#Weeks: Week 1 -- Healed Wound Bed (Post-debridement): % of Healthy tissue: Undermining: No Tunneling: No Tendon/bone exposed: NO Wound Edge/Margins: Normal, intact, Irregular wound edges and Edge attached to base Periwound Tissue: Normal, intact,uninvolved tissue and Dry,flaky Exudate Amount: None Consistency: None Odor:None Infection/Critical Colonization Localized s/s: None and Edema Systemic s/s: None Local/systemic Rx: None Wound Healing Status: Chronic Clinically presenting as: Healed Current topical treatment: Iodoflex Wound Number: 4 First Assessed Date: 03/08/18 Pre-existing: YES Location: Leg (calf) Orientation: Right anterior ace Wound Etiology: Venous Depth of Tissue Injury (Non-pressure): Full Thickness Diabetic Wounds:N/A Pressure Injury: N/A Pre-Measurements Initial (First Visit): 2.0 cm length x 2.5 cm width x 0.1 cm depth Post Measurement (Current): N/A % Healing Rate/#Weeks: New wound today Wound Bed (Post-debridement): N/A % of Healthy tissue: Undermining: No Tunneling: No Tendon/bone exposed: NO Wound Edge/Margins: Well-defined wound edges and Edge attached to base Periwound Tissue: [employer], dry and intact, No fluctuance, induration or advancing soft tissue necrosis or ischemia Exudate: Minimal Consistency: Serous Odor:None Infection/Critical Colonization: N/A Localized s/s: None Systemic s/s: None Local/systemic Rx: None Wound Healing Status: New Clinically presenting as: Stable Current topical treatment: None Wound Number: 5 First Assessed Date: 03/08/18 Pre-existing: YES Location: Foot Orientation: Right lateral Wound Etiology: Venous Depth of Tissue Injury (Non-pressure): Full Thickness Diabetic Wounds:N/A Pressure Injury: N/A Pre-Measurements Initial (First Visit): 1.5 cm length x 1.0 cm width x 0.1 cm depth Post Measurement (Current): N/A % Healing Rate/#Weeks: New wound today Wound Bed (Post-debridement): N/A % of Healthy tissue: Undermining: No Tunneling: No Tendon/bone exposed: NO Wound Edge/Margins: Well-defined wound edges and Edge attached to base Periwound Tissue: [employer], dry and intact, No fluctuance, induration or advancing soft tissue necrosis or ischemia Exudate: Minimal Consistency: Serous Odor:None Infection/Critical Colonization: N/A Localized s/s: None Systemic s/s: None Local/systemic Rx: None Wound Healing Status: New Clinically presenting as: Stable Current topical treatment: None Wound Number: 3 First Assessed Date: 10/14/17 Pre-existing: YES Location: Leg (calf) Orientation: Left and Posterior Wound Etiology: Venous Depth of Tissue Injury (Non-pressure): Full Thickness Diabetic Wounds:N/A Pressure Injury: N/A Pre-Measurements Initial (First Visit): 1.3 cm length x 1.2 cm width x 0.1 cm depth Post Measurement (Current): Epithelialized % Healing Rate/#Weeks: 100 % -- Week 5 Wound Bed (Post-debridement): 100% [employer] % of Healthy tissue: Undermining: No Tunneling: No Tendon/bone exposed: NO Wound Edge/Margins: Well-defined wound edges and Edge attached to base Periwound Tissue: [employer], dry and intact, No fluctuance, induration or advancing soft tissue necrosis or ischemia Exudate: Nonr Consistency: None Odor:None Infection/Critical Colonization: N/A Localized s/s: None Systemic s/s: None Local/systemic Rx: None Wound Healing Status: Chronic Clinically presenting as: Healed Current topical treatment: Collagen IMPRESSION: 1. Non-healing right and left lower extremity wounds ( #1 and #3) in the setting of chronic venous insufficiency with secondary lymphedema. 2. Recurrent right medial leg wound s/p STSG in the setting of chronic edema. 3. Significant lower extremity edema secondary to underlying chronic venous insufficiency with secondary lymphedema. 4. Multiple risk factors or co-morbidities that may contribute to wound healing difficulties include hypothyroid disease, chronic atrial fibrillation on anticoagulation, coronary artery disease, COPD, dyslipidemia, hypertension, muscle weakness, osteoarthritis, GERD, depression and obesity. 5. Wound cultures positive for Enterobacter cloacae and Staph aureus most likely increased colonization. 6. Very good glucose control based on recent HgbA1c. 7. Zinc insufficiency ( precursor for collagen synthesis. 8. No significant arterial disease based on recent PVRs. 9. No evidence of osteomyelitis based on recent XRs. 10. Valvular incompetency involving the right common femoral vein , right femoral vein, right great saphenous vein, left femoral vein (mid thigh) and left great saphenous vein (mid thigh). TREATMENT PLAN: Debridement Type: Autolytic Enzymatic Mechanical Surgical Sharp (N) Other: Wound Dressing: See Nursing Notes for details. . Topical Rx: Wound # 1Right lateral distal leg: Wounds washed with dakins solution 0.125%. Pat dry. Dakins moistened gauze 0.125% was packed in to the wound bed. Equal parts of hydrocortisone cream 1% and zinc to all excoriated areas. Site covered with dry max, abd pads and kerlix wrap. Tape to secure. 6 ankit wrap applied from behind the toes to 1 below the knee. Change dressings daily. Left lower leg: Moisturized with vitamin AANDD ointment. 6 ankit applied from behind the toes to 1 below the knee. 5. Right anterior ace: (NEW) L: 2.0 cm x W: 2.5 cm x D: 0.1 cm. Equal parts of hydrocortisone cream 1% and zinc to all excoriated areas. Site covered with dry max, 6. Right lateral foot(NEW: L: 1.5 cm x W: 1.0 cm x D: 0.1 cm. Equal parts of hydrocortisone cream 1% and zinc to all excoriated areas. Site covered with dry max, Equal parts of hydrocortisone cream 1% and zinc to all excoriated areas. Area padded to protect with abd's. Systemis Rx: Begin: Doxycycline to prevent reoccurant mg PO BID x 14 days then 7 days off. Indefinitely CirAids to be ordered for maintenance therapy. Use pneumatic compression pumps twice daily with 40-50 mmhg compression Nutritional Support: MVI, Zinc Supplement and Protein Supplement Patient is instructed to continue a healthy, well-balanced diet for nutritional support for optimal healing. Protein is the most important nutrient for wound healing. Eating adequate amounts of protein allows the body to create new cells and chemicals to heal the wound, and increases the body?s ability to fight infection. Eating high protein foods daily is recommended such as: lean meats, fish, poultry, cheese, milk, yogurt, eggs and legumes. Vitamins and minerals provide a full range of nutrients for wound healing. It can help jump start the body's production of cells and chemicals needed for healing. Vitamins and minerals can be obtained through healthy foods in your diet and by taking a multiple vitamin supplement. Vitamin C is essential for collagen synthesis. Collagen and fibroblasts compose the basis for the structure of a new wound bed. Also, a deficiency of Vitamin C prolongs the healing time and contributes to reduced resistance to infection. Laboratory: We will obtain wound cultures to determine bacterial load. She will be treated accordingly. Wound cultures are collected to assess level of bacterial bio-burden. Excessive bio-burden can result in inflammatory and proliferative phase stagnation as well as compromise of normal wound healing physiology. Bacterial proliferation, biofilm production, critical colonization and the development of resistant organism can lead to wound infection, wound deterioration and devastating tissue loss. Knowing the organism that populated the wound can help direct therapy, particularly anti-microbial dressing choices. Vascular Evaluation: PVRs for both lower extremities to evaluate for arterial insufficiency completed. Pt advised to see Dr. Tavo Mcnair of Vascular Surgery for further evaluation given her underlying PVD to help with wound healing. Follow-up is scheduled in 1 week, sooner with any concerns or worsening symptoms. Luis Simons CNP Charge Capture: [id number] Tiffanie Humphrey RN, RN 03/17/2018 2:51 PM Addendum Nursing Note Dx: Venous insufficiency with ulcer with secondary lymphedema See provider note for wound description and measurements Patient has removed compression wraps yesterday at home. In the presence and direction of the provider wound care as written below: Photos taken Right lateral distal leg: Wounds padded with abd pads and secured with kerlix wrap. Blue socks on PLAN: Patient sent to the emergency room due to worsening wounds and increased swelling Patient taken to the ED with report given to Roxann Kimbrough RN. Measurements: Right Calf: 57.5 cm Right Ankle: 34.5 cm Left Calf: 50.5 cm Left Ankle: 33 cm EDUCATION PER PROVIDER: The patient/family was instructed how to wash the wound(s) with dial soap, rinsing with water, AND patting dry. Visual demonstration on how to apply the dressing. Signs AND symptoms of infection were reviewed: Increased redness, swelling, pain, green, yellow drainage, fever or chills all would need to be evaluated by a Physician. Patient received typed homegoing wound care instructions and has expressed intent to comply. Tiffanie Humphrey RN, RN 03/17/2018 2:37 PM Signed Patient sent to the Emergency Room for evaluation Referring Provider: SELF [[id number]] Allergies As of Date: 03/17/2018 (No Known Allergies) Date Reviewed: 03/17/2018 Reviewed by: Magda (Rn) ELENA Mercado - Fully Assessed Reason for Visit: Wound Check [133] Cmt: right lower leg Primary Visit Diagnosis:Venous stasis ulcer of right lower leg with edema of right lower leg (HCC) [I83.019, I83.891, L97.919, R60.9] Other Visit Diagnoses:Venous insufficiency (chronic) (peripheral) [I87.2] Secondary lymphedema [I89.0] Peripheral vascular disease (HCC) [I73.9] Prescriptions as of 03/17/2018 Sig: X ERGOCALCIFEROL (VITAMIN D2) 5* Take 1 capsule by mouth once * METOPROLOL TARTRATE 25 MG TAB* Take 0.5 tablets by mouth twi* LISINOPRIL 2.5 MG TABLET Take 1 tablet by mouth every * OMEPRAZOLE 20 MG CAPSULE,LUIS MIGUEL* Take 1 capsule by mouth once * DOCUSATE SODIUM 100 MG CAPSULE Take 1 capsule by mouth once * FUROSEMIDE 40 MG TABLET Take 2 tablets by mouth twice* SPIRONOLACTONE 25 MG TABLET Take 1 tablet by mouth twice * X WARFARIN 1 MG TABLET TAKE ONE TABLET BY MOUTH ONCE* METOLAZONE 2.5 MG TABLET Take 2 tablets by mouth once * SODIUM HYPOCHLORITE 0.125 % S* Dakin's moistened gauze packi* WARFARIN 3 MG TABLET Take 1 tablet by mouth daily * Patient taking differently: Take 3 mg by mouth once daily* GABAPENTIN 300 MG CAPSULE Take 1 capsule by mouth twice* VITAMIN C ORAL Take 1 tablet by mouth twice * SILVER SULFADIAZINE 1 % TOPIC* Apply to leg wounds as direct* ACETAMINOPHEN 500 MG TABLET Take 1,000 mg by mouth every * ASPIRIN 81 MG TABLET,DELAYED * Take 81 mg by mouth every jean* MULTIVITAMIN-IRON 9 MG-FOLIC * Take 1 tablet by mouth once d* X WARFARIN 1 MG TABLET Take 3 mg by mouth daily as d* LEVOTHYROXINE 100 MCG TABLET Take 1 tablet by mouth once d* COMPOUNDED PRESCRIPTION Calcium Alginate 4x4 Dressing* ZINC SULFATE 220 MG TABLET Take 1 tablet by mouth once d* Problem List As Of Date 03/17/2018 Noted Resolved Gastroesophageal reflux disease without esophag*INVALID FOR* Chronic atrial fibrillation (HCC) [I48.2] INVALID FOR* Priority: B Pure hypercholesterolemia [E78.00] Hypertension [I10] Priority: D Acquired hypothyroidism [E03.9] Priority: F CAD (coronary artery disease) [I25.10] More... 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 More... More... Respiratory failure with hypoxia (HCC) [J96.91] INVALID FOR* Priority: Severe Heart failure with preserved ejection fraction *INVALID FOR* Priority: A More... Requires continuous at home supplemental oxygen*INVALID FOR*01/20/2018 More... Adjustment disorder with depressed mood [F43.21]INVALID FOR* Constipation [K59.00] INVALID FOR* Leg ulcer, right, with fat layer exposed (HCC) *INVALID FOR* Other instructions from your clinician: Patient sent to the Emergency Room for evaluation Visit Notes: >> Tiffanie (Cherelle Humphrey RN TueMarch 17, 2018 2:33 PM Status: Addendum Nursing Note Dx: Venous insufficiency with ulcer with secondary lymphedema See provider note for wound description and measurements Patient has removed compression wraps yesterday at home. In the presence and direction of the provider wound care as written below: Photos taken Right lateral distal leg: Wounds padded with abd pads and secured with kerlix wrap. Blue socks on PLAN: Patient sent to the emergency room due to worsening wounds and increased swelling Patient taken to the ED with report given to Roxann Kimbrough RN. Measurements: Right Calf: 57.5 cm Right Ankle: 34.5 cm Left Calf: 50.5 cm Left Ankle: 33 cm EDUCATION PER PROVIDER: The patient/family was instructed how to wash the wound(s) with dial soap, rinsing with water, AND patting dry. Visual demonstration on how to apply the dressing. Signs AND symptoms of infection were reviewed: Increased redness, swelling, pain, green, yellow drainage, fever or chills all would need to be evaluated by a Physician. Patient received typed homegoing wound care instructions and has expressed intent to comply. Encounter Status:Closed by LUIS SIMONS on 04/03/18 HOSP Observed: 03/17/2018 Status: COMPLETED Source: [facility] 12:00 AM CLINIC OTHER CAMPUS REPOSITORY Patient:Rosa Beltran MRN: <[id number]> Height:5' 4(1.626 m) Weight:206 lb 2.1 oz (93.5 kg) Outpatient Medications as of 03/22/18: metoprolol tartrate, short acting, (LOPRESSOR) 25 mg tablet lisinopril (ZESTRIL) 2.5 mg tablet omeprazole (PRILOSEC) 20 mg capsule docusate sodium (COLACE) 100 mg capsule furosemide (LASIX) 40 mg tablet spironolactone (ALDACTONE) 25 mg tablet metOLAzone (ZAROXOLYN) 2.5 mg tablet sodium hypochlorite (DAKIN'S SOLUTION) 0.125 % soln warfarin (COUMADIN) 3 mg tablet gabapentin (NEURONTIN) 300 mg capsule ASCORBIC ACID (VITAMIN C ORAL) silver sulfADIAZINE (SILVADENE) 1 % cream Zinc Sulfate 220 mg tab acetaminophen (TYLENOL) 500 mg tablet aspirin, enteric coated (ASPIRIN, ENTERIC COATED) 81 mg EC tablet therapeutic multivitamin w/ iron (THERAGRAN-M) 9 mg iron-400 mcg tablet levothyroxine (LEVOXYL) 100 mcg tablet COMPOUNDED PRESCRIPTION Admission/Clinic Administered Medications as of 03/22/18: docusate sodium 100 mg cap(s) (COLACE) piperacillin-tazobactam 3.375 g in dextrose (iso-osmotic) 50 mL (ZOSYN) warfarin 3 mg tab(s) (COUMADIN) acetaminophen 1,000 mg tab(s) (TYLENOL) gabapentin 300 mg cap(s) (NEURONTIN) therapeutic multivitamin with iron (THERAGRAN-M) aspirin, enteric coated 81 mg tab(s) (ASPIRIN, ENTERIC COATED) pantoprazole DR 20 mg tab(s) (PROTONIX) levothyroxine 100 mcg tab(s) (SYNTHROID) ondansetron orally disintegrating 4 mg tab(s) (ZOFRAN ODT) ondansetron (PF) 4 mg injection (ZOFRAN) oxyCODONE-acetaminophen 5-325 mg 1 tablet (PERCOCET) perflutren lipid microspheres 1.1 mg/mL 1.3 mL injection (DEFINITY) Problem List: Gastroesophageal reflux disease without esophagitis [K21.9] Chronic atrial fibrillation (HCC) [I48.2] Pure hypercholesterolemia [E78.00] Hypertension [I10] Acquired hypothyroidism [E03.9] CAD (coronary artery disease) [I25.10] Primary osteoarthritis involving multiple joints [M15.0] Lymphedema of both lower extremities [I89.0] Mouth dryness [R68.2] Muscular weakness [M62.81] Dorsalgia [M54.9] Stented coronary artery [Z95.5] Gastric bypass status for obesity [Z98.84] Bilateral leg ulcer (HCC) [L97.919, L97.929] Polyneuropathy (HCC) [G62.9] Cecal ulcer [K63.3] Respiratory failure with hypoxia (HCC) [J96.91] Heart failure with preserved ejection fraction (HCC) [I50.30] Adjustment disorder with depressed mood [F43.21] Constipation [K59.00] Leg ulcer, right, with fat layer exposed (HCC) [L97.912] Allergies: No Known Allergies Date Verified:03/22/18 Lab Values Lab Value Units Date High Low POTA* 4.6 mmol/L 03/21/2018 5.1 3.7 MINH* 34.5 % 03/22/2018 46.0 36.0 Progress Notes ([facility]): Chinyere Kelley, CT, CT 03/20/2018 12:17 PM Sign at close encounter Radiology Service Progress Note PATIENT NAME: Rosa Beltran DATE OF SERVICE: March 20, 2018 TIME: 12:16 PM PATIENT IDENTITY VERIFICATION COMPLETED USING TWO (2) METHODS: Patient confirmed name verbally and ID band matches.. PATIENT GENDER DATA: Female. status: : No status: NO. PATIENT RELEVANT IMPLANT DATA REVIEWED: Yes RADIOLOGY DEPARTMENT: MR; Exam(s) Completed: Lower MSK: Tib/Fib, right PERIPHERAL IV DATA: Not applicable SIGNED BY: SELENA Treviño March 20, 2018 12:16 PM Progress Notes (): Karan Diallo DO, 03/17/2018 6:12 PM Signed ED Provider Note Patient Name: Rosa Beltran SERVICE DATE: 03/17/18 History No chief complaint on file. 82 year old female with a past medical history of A. fib, CAD, CHF, presents to emergency department today from the wound clinic for worsening right leg wound over the last week. Patient stated chronic right leg wound is now worse and more drainage and more swelling on the right leg. She is also been having fevers and chills at home. She has been on antibiotics at home without any improvement. Also complaining of shortness of breath worse with lying down. She denies any chest pain. Denies any complaints. PAST MEDICAL HISTORY Diagnosis Date - Acquired hypothyroidism - Acute respiratory failure with hypoxia (HCC) 09/30/2017 - Atrial fibrillation ([facility]) - CAD (coronary artery disease) Dr. Brenda Awan Hts, Promus element KIMMY LAD 11/20/2012, Stress test 04/2014 inferoapical reversible ischemia,small LVEF 48-50%, LHC 12/2014 L main-normal, LAD widely patent, Cx diffuse mild luminal irregularities with 80%focal stenosis distal, RCA dominant with minimal luminal irregularities. 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 - Pure hypercholesterolemia - Rheumatoid arthritis ([facility]) 2007 - Sleep apnea - Stented coronary artery 12/29/2016 PAST SURGICAL HISTORY Procedure Laterality Date - CC CORONARY STENT 11/20/2012 KIMMY LAD - CC CORONARY STENT 12/20/2014 KIMMY, Cfx - SECTION HX - COLONOSCOPY 06/10/2017 [facility], Nonspecific cecal ulcer - GASTRIC BYPASS HX 1986 - HERNIA REPAIR HX 1987; 1989 - PAST SURGICAL HISTORY OF Right 09/2015 right tibia fracture ORIF - PAST SURGICAL HISTORY OF Right 01/20/2016 Removal of hardware, right tibia - TOTAL KNEE REPLACEMENT Right 2003 [facility] Gen. - TOTAL KNEE REPLACEMENT Left 2004 [facility] Gen. No family history on file. Social History Social History Main Topics - Smoking status: Passive Smoke Exposure - Never Smoker - Smokeless tobacco: Never Used Comment: smoked for 40 years - Alcohol use No - Drug use: No - Sexual activity: Not on file ALLERGIES No Known Allergies Review of Systems Constitutional: Negative for chills and fever. HENT: Negative for congestion and sore throat. Eyes: Negative for photophobia and visual disturbance. Respiratory: Negative for chest tightness, shortness of breath and wheezing. Cardiovascular: Negative for chest pain and palpitations. Gastrointestinal: Negative for abdominal pain and blood in stool. Genitourinary: Negative for dysuria and hematuria. Musculoskeletal: Negative for neck pain and neck stiffness. Skin: Positive for wound. Negative for color change. Neurological: Negative for dizziness and headaches. Psychiatric/Behavioral: Negative for agitation and confusion. Physical Exam There were no vitals taken for this visit. Physical Exam Constitutional: She is oriented to person, place, and time. She appears well-developed and well-nourished. HENT: Head: Normocephalic and atraumatic. Eyes: Conjunctivae and EOM are normal. Neck: Normal range of motion. Neck supple. Cardiovascular: Normal rate and regular rhythm. Pulmonary/Chest: Effort normal and breath sounds normal. No respiratory distress. She has no wheezes. Abdominal: Soft. Bowel sounds are normal. Musculoskeletal: Normal range of motion. She exhibits tenderness and deformity. She exhibits no edema. Right lower leg: She exhibits swelling. Left lower leg: She exhibits swelling. Left foot: Normal. Feet: +3 pitting edema Neurological: She is alert and oriented to person, place, and time. Skin: Skin is warm and dry. Psychiatric: She has a normal mood and affect. Her behavior is normal. Diagnostic Testing ED Labs Ordered and Reviewed - No data to display BNP 1999 ED imaging studies ordered and reviewed X-ray of right ankle with evidence of remote trauma Chest x-ray with chronic appearing moderate diffuse alveolar consolidations throughout both lungs likely pulmonary edema Procedures Medical Decision Making IV started Nursing notes and vital signs reviewed Triage note reviewed Patient's hyotxywi-[id number] provides elements of past medical history and history of present illness Medications administered Lasix vancomycin and Zosyn Discussed with admitting hospital as Dr. Joseph - aGreeable to admission MDM The medical record is reviewed.Triage note is reviewed and incorporated. The nursing note is reviewed and consistent with patient's history and physical exam findings. The vital signs were reviewed the the vital signs are : There were no vitals taken for this visit. XR directly visualized and independently interpreted by me as well as Radiologist showed: A lateral view of right ankle is not submitted.2. ?No evidence of acute skeletal abnormality. No evidence of fracture or dislocation. No plain film findings of osteomyelitis.. Deformity of distal right tibia and fibula and right hind foot, onsistent with remote trauma, post-operative and degenerative change, as described. MDM: This is a well-appearing female with a pmh of chf who presents to the ED with a chief complaint of wound infection, leg swelling who is, afebrile , hemodynamically stable, in no acute distress patient whose symptoms are controlled in the ED with vanco and zosyn . Based on patient's pmh, chief complaint and physical exam findings, differential diagnoses include osteomyelitis vs cellulitis, vs sepsis, vs chf. Labs and imaging studies reveal cbc within normal limits cmp with bun of 36, creatinine of 1.06, pro bnp of 2023 Patient presents to the ED from wound clinic for worsening wound in right leg. She will require admission for iv antibitoics, will give zosyn and vanco At this time, based on the patient's history, physical exam findings, lab results and clinical picture , the most likely diagnosis is wound infection The attending who evaluated and managed this patient was Dr. Diallo. Labs, physical exam as well as imaging findings and plan for continuity of care was discussed with Dr. Joseph who will admit. This note was partially generated using [employer] voice recognition system, and there may be some incorrect words, spellings, and punctuation that were not noted in checking the note before saving ED Course / Clinical Impression Clinical Impressions as of Mar 17 1656 Wound infection Plan SIGNATURE: DAFNE Shepard) Lacie 03/17/181739 Sachin Avendano) Lacie 05/18/18 1741 Attending Note I have personally performed a face to face assessment of the patient and have reviewed the PA/DADO OPERATOR note. My [place] findings include: History is 82-year-old female past history of atrial ablation on Coumadin COPD on supplemental O2 CHF CAD sent from wound care clinic with worsening right lower extremity wound. Patient has a chronic wound to the medial aspect of the right ankle. It is been worsening over the past 2 weeks with significant discharge from it. She does report subjective fever and chills at home. She has been on oral antibiotics without improvement of symptoms. Exam is hypertensive upon arrival remainder vitals unremarkable. Alert and oriented no acute distress. Heart bradycardic rate with regular rhythm. Diminished breath sounds throughout. Abdomen soft. Focused exam to the right lower extremity shows wound with yellow appearing discharged to the medial aspect of the right ankle. Assessment/Plan are stable upon arrival. Blood work grossly unremarkable. BNP elevated with chronic pulmonary edema noted on chest x-ray with Lasix. Blood and wound cultures obtained. Treated with vancomycin and Zosyn based on past cultures of Proteus and staph aureus susceptibility. Discussed with admitting hospitalist who is agreeable to admission for further treatment and care. Admit. Other additions or changes: As edited - bold type Signature: Karan Diallo DO Date: 03/17/2018 Time: 6:07 PM Karan Diallo DO 03/17/18 1812 Previous Version Roxann Kimbrough RN, RN 03/17/2018 3:23 PM Signed Patient presents to ED with leg pain swelling infection Jasmeet Beltran, Medic, Medic 03/17/2018 3:48 PM Signed Blood cultures drawn and sent. One set. Echo Yeager, RN, RN 03/17/2018 7:51 PM Signed Both heels floated again NAILA AMEZCUA 03/17/2018 6:09 PM Signed CARE MANAGEMENT: ASSESSMENT AND DISCHARGE PLAN SERVICE DATE: 03/17/2018 SERVICE TIME: 5:50 pm PRIMARY CARE PHYSICIAN: Mani Newman MD - confirmed with pt ADMISSION STATUS: Emergency MEDICAL: Patient/Material Processor Stated Goals: To have reduction in symptoms To return home to life as it was Health Insurance: MEDICARE A AND B [place] Health Issues Impacting Discharge Plan: Wound right leg Last Admission Date: Previous admit date: 12/19/2017 Is this Within the Past 30 days? No Advance Directive: Current Advance Directive: None; pt stated she has the paperwork at home and declined more paperwork at this time Health Literacy: 1. How often do you need to have someone help you when you read instructions, pamphlets, or other written material from your doctor or pharmacy? Never - 1 2. How confident are you filling out medical forms by yourself? Extremely - 1 If Patient scores > 3 on either question, the following interventions were put into place: Patient did not score > 3 FUNCTIONAL AND COGNITIVE/BEHAVIORAL PRIOR TO ADMISSION: Baseline Mental Status: Alert AND Oriented, Person, Place , Time and Situation Functional Status: Independent Does Patient Currently Receive Any Community Services or Home Care? Home Health Care Agency: [facility]; ; Active. Equipment Prior to Admission: Oxygen 3 liters per minute Walker Wound Care supplies Provider [facility] Has the Patient Been in a Half-Way Facility in the Past 30 days? No SOCIAL: Living Arrangement: Home Lives With: Alone Financial Resources: Retired Primary Contact: Extended Emergency Contact Information Primary Emergency Contact: DevinSheron Mobile Relation: Relative Supportive: Yes Other Important Patient Contacts: None Caregiver Assessment: Caregiver is ready, willing and able to meet the patient's needs as recommended by the inter-professional team? Yes Patient's transition needs and plan for meeting these needs: Pt is from home with [facility] nursing services and plans to resume services upon d/c Does the patient have an acute stroke diagnosis, or has the patient had a stroke during this admission? No Medication Adherence: I am convinced of the importance of my prescription medication: Agree completely - 0 I worry that my prescription medication will do more harm than good to me Disagree completely - 0 I feel financially burdened by my ygf-hr-cxlggr expenses for my prescription medication: Disagree completely - 0 Patient is categorized as low risk < 2 Are you interested in bedside delivery of your medications? No Food Concerns: In the Last Month, Have You had Trouble Getting Food? No trouble getting food During the Last Month, Have You Worried Whether Your Food Would Run Out Before You Had Enough Money to Buy More? No Is the Patient Psychosocially Complex? No ASSESSMENT AND PLAN: Medical Needs: Wound Care - active or potential and AFib, CAD, COPD, HTN, Sleep Apnea Psychosocial Needs: None FREEDOM OF CHOICE EXPLAINED: Yes Pt would like to resume nursing services with [facility] POTENTIAL TRANSITION PLANS Home Home Care SW met with pt and ddmrogfe-yj-hmx bedside. Pt and oujbzvfk-kd-eai are familiar with SW from previous hospitalization. Explained role again. Pt is from home and noted that although she and her ksuocdub-be-kws are in separate units, they live in the same house. Pt reported she has an intercom system and can communicate with her ieawyqdv-xw-qfy. Pt confirmed she is active with [facility] and wants to resume services upon d/c. Lqxhpjnb-au-qau to transport. SIGNATURE: NAILA AMEZCUA PATIENT NAME: Rosa Beltran DATE: March 17, 2018 TIME: 6:02 PM PAGER/CONTACT #: [phone] Karishma Cleary MD 03/18/2018 12:04 AM Signed DEPARTMENT OF HOSPITAL MEDICINE HISTORY AND PHYSICAL EXAM SERVICE DATE: 03/17/2018 SERVICE TIME: 6.20 PM Primary Care Physician: Mani Newman MD NIGHT AND WEEKEND COVERAGE: Nights: Please contact pager [phone]. Subjective CHIEF COMPLAINT: worsening of leg ulcers with cellulitis. HPI: This is a 82 year old frail chronically ill appearing female with PMHx as listed below presented to the ED from the wound care clinic with complaints of worsening Right Leg ulcers through the past week. She had noted increasing erythema over the foot and the lower 2/3 rd of the right leg, increasing drainage from the wound over the lateral aspect of the right ankle. For the past 2 weeks since wound appeared to be worsening she was started on a course of PO Doxycycline BID which she had been taking with no improvement. She denies any fever or chills. She had noted pain of 4/10 in her leg. In ED her vital signs were noted to be 183/81 mm Hg, MA- 60/min, Temp- 98.4, RR- 18/min, SPO2 98 % on 3 L NC O2. CBC and BMP normal. INR - 2.3. Podiatry consulted from ED. She is admitted for management of worsening of leg ulcers with cellulitis. PAST MEDICAL HISTORY Diagnosis Date - Acquired hypothyroidism - Acute respiratory failure with hypoxia (HCC) 09/30/2017 - Atrial fibrillation ([facility]) - CAD (coronary artery disease) Dr. Gutierrez Ingalls Hts, Promus element KIMMY LAD 11/20/2012, Stress test 04/2014 inferoapical reversible ischemia,small LVEF 48-50%, LHC 12/2014 L main-normal, LAD widely patent, Cx diffuse mild luminal irregularities with 80%focal stenosis distal, RCA dominant with minimal luminal irregularities. PTCA and Promus premier KIMMY distal Cx 12/20/2014, RX aspirin and plavix - Cecal ulcer 06/10/2017 - Chronic atrial fibrillation ([facility]) 10/08/2016 - COPD (chronic obstructive pulmonary disease) ([facility]) - Depressive disorder 12/29/2016 - Disruption of surgical wound 09/2015 Right tibia - Dorsalgia 12/29/2016 - Dyslipidemia - Gastric bypass status for obesity 12/29/2016 - Gastroesophageal reflux disease without esophagitis 10/08/2016 - HTN (hypertension) - Muscular weakness 12/29/2016 - Primary osteoarthritis involving multiple joints 12/29/2016 - Pure hypercholesterolemia - Rheumatoid arthritis ([facility]) 2007 - Sleep apnea - Stented coronary artery 12/29/2016 PAST SURGICAL HISTORY Procedure Laterality Date - CC CORONARY STENT 11/20/2012 KIM[facility] LAD - CC CORONARY STENT 12/20/2014 KIMMY, Cfx - SECTION HX - COLONOSCOPY 06/10/2017 [facility], Nonspecific cecal ulcer - GASTRIC BYPASS HX 1986 - HERNIA REPAIR HX 1987; 1989 - PAST SURGICAL HISTORY OF Right 09/2015 right tibia fracture ORIF - PAST SURGICAL HISTORY OF Right 01/20/2016 Removal of hardware, right tibia - TOTAL KNEE REPLACEMENT Right 2003 [facility] Gen. - TOTAL KNEE REPLACEMENT Left 2004 [facility] Gen. No family history on file. Social History Substance Use Topics - Smoking status: Passive Smoke Exposure - Never Smoker - Smokeless tobacco: Never Used Comment: smoked for 40 years - Alcohol use No MEDICATIONS: Reviewed (Not in a hospital admission) ALLERGIES No Known Allergies REVIEW OF SYSTEM: GENERAL: No weight loss, malaise or fevers HEENT: Negative for frequent or significant headaches, No changes in hearing or vision, no nose bleeds or other nasal problems NECK: Negative for lumps, goiter, pain and significant neck swelling RESPIRATORY: Negative for cough, hemoptysis, wheezing, shortness of breath CARDIOVASCULAR: Positive for B/L leg swelling,Negative for chest pain, palpitations GI: No nausea, vomiting, or diarrhea : No history of dysuria, frequency or incontinence MUSCULOSKELETAL: Negative for joint pain or swelling, back pain or muscle pain SKIN: Positive for right leg ulcer, Negative for lesions, rash, and itching PSYCH: Negative for sleep disturbance, mood disorder and recent psychosocial stressors HEMATOLOGY/LYMPHOLOGY: Negative for prolonged bleeding, bruising easily or swollen nodes ENDOCRINE: Negative for cold or heat intolerance, polyuria, polydipsia and goiter NEURO: No history of headaches, syncope, paralysis, seizures or tremors Objective PHYSICAL EXAM: BP 157/68 Pulse 54[afib[ Temp (Src) 98 (Oral) Resp 16 Wt 205 lb (93.0kg) SpO2 98% Physical Exam Performed: GENERAL: She appears chronically ill, alert, no distress, cooperative SKIN: Ulcers as described, Skin color, texture, turgor normal. No rashes or lesions. HEAD/SINUSES: No significant findings EYES: PERRLA, EOMI, No pallor, no scleral icterus NOSE: Nares normal. Septum midline, nasal mucosa normal OROPHARYNX: Lips, mucosa, and tongue normal. Teeth and gums normal. Oropharynx normal. NECK: No jugulovenous distention, No carotid bruits, Carotid pulse normal contour, Supple BACK: Back symmetric, Normal curvature, No CVAT. LUNGS: Lungs clear to auscultation, Good diaphragmatic excursion CARDIAC: Normal S1 and S2; IRIR, no rubs, murmurs, or gallops ABDOMEN: Abdomen soft, non-tender, BS normal, No masses or organomegaly EXTREMITIES: B/l 3 + pitting edema noted in both the legs, Rt Leg - 6 x 5 cm stage 2 ulcer with slough and yellowish drainage noted on the lateral aspect, Medial aspect - chronic changes from previous ulcer with erythema noted, erythema noted in the lower leg, deformities of toes noted from RA NEURO: AAND O x 3, speech normal, moves all 4 extremities PULSES: 2+ radial Lines, Drains, and Airways Line Peripheral 03/17/18 1548 Left Antecubital 20 Gauge less than 1 day DATA: Diagnostic tests reviewed for today's visit: Most recent labs Most recent imaging Assessment/Plan Active Problems: Infected Leg Ulcers with cellulitis: Has no features of sepsis WBC normal XR Rt Ankle- No evidence of fracture or dislocation. No plain film findings of osteomyelitis.Deformity of distal right tibia and fibula and right hind foot, consistent with remote trauma, post-operative and degenerative change - Started on Vanc and Zosyn, continue - Needs wound debridement - Consulted podiatry - wound care - Start IV lasix for leg swelling Chronic Afib/ Severe Pulmonary HTN: Last ECHO in 02/07/2018 revealed moderate (2+) tricuspid valve regurgitation. - Estimated right ventricular systolic pressure is 82 mmHg consistent with severe pulmonary hypertension. Normal LV function, EF 63% Switch to IV lasix IO chart Resume Aldactone, lisinopril 2.5 mg, Metoprolol 12.5 mg BID Telemonitor Resume coumadin from tomorrow Hypothyroidism: resume home meds GERD: resume omeprazole Deforming Rheumatoid Arthritis: not on meds Medication and Non-Pharmacologic VTE Prophylaxis/Anticoagulants VTE Prophylaxis: on therapeutic anticoagulation Disposition: Home Plan of care discussed with: Patient, Family/Other: daughter at bedside, [place] Room Physician and RN SIGNATURE: Karishma Cleary MD PATIENT NAME: Rosa Beltran DATE: March 17, 2018 TIME:12:04 AM PAGER/CONTACT #: [id number] etx [phone] Echo Yeager, RN, RN 03/17/2018 7:39 PM Signed talked with pharmacy regarding infiltration of zosyn, nothing noted in police to be uses. Area not red or warm no irritation or tenderness Echo Yeager, RN, RN 03/17/2018 7:51 PM Signed Quiana Zavala Pharmacist 03/17/2018 8:44 PM Signed PHARMACY VANCOMYCIN DOSING NOTE Patient Name: Rosa Beltran Admission Date: 03/17/2018 Date of Consult: 03/17/2018 Time of Consult: 8:41 PM Indication: Right leg wound Goal Range: 15-20 mcg/mL RECOMMENDATIONS/PLAN: Pharmacy consulted for vancomycin dosing for Rosa Beltran, a 82 year old, female who is being treated with vancomycin for right leg wound. 1. Patient is currently ordered Vancomycin 1.25 g IV q24h. Today is day 1 of therapy. (1st dose in ED) 2. No vancomycin level has been drawn for this dosing regimen. 3. Will increase vancomycin to 1.5 g with a dosing interval of q24h based on patient's weight of 93 kg and estimated CrCl of 46ml/min (Adjusted BW). 4. The next vancomycin level will be ordered for 03/20 unless clinically indicated sooner. (Pharmacy will order) We will follow patient renal function, vancomycin levels and doses with you during the course of therapy. Additional recommendations will appear in follow up notes. If you have any questions, please contact inpatient pharmacy at [phone]. Age: [age] year old Allergies: ALLERGIES No Known Allergies Last 3 Encounter Wt Readings: Date: Wt: 03/17/2018 93 kg (205 lb) 03/06/2018 93 kg (205 lb) 02/03/2018 95.7 kg (211 lb) Last 1 Encounter Ht Readings: Date: Ht: 12/19/2017 162.6 cm (5' 4) CrCl: 46 mL/min (Adjusted BW) Temp (24hrs), Av.8 ?C (98.2 ?F), Min:36.7 ?C (98 ?F), Max:36.9 ?C (98.4 ?F) - Current Temp: 36.9 ?C (98.4 ?F) Labs BUN (mg/dL) Date Value 03/17/2018 36 (H) 03/06/2018 39 (H) 02/07/2018 24 (H) Creatinine (mg/dL) Date Value 03/17/2018 1.06 (H) 03/06/2018 1.10 (H) 02/07/2018 0.95 WBC (k/uL) Date Value 03/17/2018 6.75 12/21/2017 4.85 12/20/2017 5.80 Vancomycin Levels: No results found for: DANISHA Zavala, Pharmacist Mariajose Roque MD 03/18/2018 8:28 AM Signed CONSULT: INFECTIOUS DISEASE SERVICE SERVICE DATE: 03/18/2018 SERVICE TIME: 8:06 AM REASON FOR CONSULT: Leg ulcer PRIMARY CARE PHYSICIAN: Mani Newman MD Subjective This is a 82 year old frail chronically ill appearing female with PMHx as listed below presented to the ED from the wound care clinic with complaints of worsening Right Leg ulcers through the past week. She had noted increasing erythema over the foot and the lower 2/3 rd of the right leg, increasing drainage from the wound over the lateral aspect of the right ankle. For the past 2 weeks since wound appeared to be worsening, painful she was started on a course of PO Doxycycline BID which she had been taking with no improvement. She denies any fever or chills. She had noted pain of 4/10 in her leg. In ED afebrile, WBC normal, lactate 1.1. X ray with remote trauma, no signs of OM. CXR with stable consolidations from prior ?pulmonary edema. In January his wound cx had grown Proteus and MSSA. NIMISHA from Oct suggestive of small vessel disease versus vasoconstriction, per patient no intervention done. Patient currently on Vancomycin and Zosyn. PAST MEDICAL HISTORY Diagnosis Date - Acquired hypothyroidism - Acute respiratory failure with hypoxia (HCC) 09/30/2017 - Atrial fibrillation ([facility]) - CAD (coronary artery disease) Dr. Brenda Awan Hts, Promus element KIMMY LAD 11/20/2012, Stress test 04/2014 inferoapical reversible ischemia,small LVEF 48-50%, LHC 12/2014 L main-normal, LAD widely patent, Cx diffuse mild luminal irregularities with 80%focal stenosis distal, RCA dominant with minimal luminal irregularities. 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 - Pure hypercholesterolemia - Rheumatoid arthritis ([facility]) 2007 - Sleep apnea - Stented coronary artery 12/29/2016 PAST SURGICAL HISTORY Procedure Laterality Date - CC CORONARY STENT 11/20/2012 KIMMY LAD - CC CORONARY STENT 12/20/2014 KIM[facility], Cfx - SECTION HX - COLONOSCOPY 06/10/2017 [facility], Nonspecific cecal ulcer - GASTRIC BYPASS HX 1986 - HERNIA REPAIR HX 1987; 1989 - PAST SURGICAL HISTORY OF Right 09/2015 right tibia fracture ORIF - PAST SURGICAL HISTORY OF Right 01/20/2016 Removal of hardware, right tibia - TOTAL KNEE REPLACEMENT Right 2003 [facility] Gen. - TOTAL KNEE REPLACEMENT Left 2004 [facility]. No family history on file. Social History Substance Use Topics - Smoking status: Passive Smoke Exposure - Never Smoker - Smokeless tobacco: Never Used Comment: smoked for 40 years - Alcohol use No Prescriptions Prior to Admission: metoprolol tartrate, short acting, (LOPRESSOR) 25 mg tablet Take 0.5 tablets by mouth twice daily. Disp: 30 tablet Rfl: 5 03/17/2018 at Unknown time lisinopril (ZESTRIL) 2.5 mg tablet Take 1 tablet by mouth every evening. Disp: 30 tablet Rfl: 5 03/17/2018 at Unknown time omeprazole (PRILOSEC) 20 mg capsule Take 1 capsule by mouth once daily. Disp: 30 capsule Rfl: 5 03/17/2018 at Unknown time docusate sodium (COLACE) 100 mg capsule Take 1 capsule by mouth once daily as needed for Constipation. Disp: 30 capsule Rfl: 5 Past Week at Unknown time furosemide (LASIX) 40 mg tablet Take 2 tablets by mouth twice daily. Disp: 120 tablet Rfl: 5 03/17/2018 at Unknown time spironolactone (ALDACTONE) 25 mg tablet Take 1 tablet by mouth twice daily. Disp: 60 tablet Rfl: 5 03/17/2018 at Unknown time metOLAzone (ZAROXOLYN) 2.5 mg tablet Take 2 tablets by mouth once daily. Disp: 60 tablet Rfl: 11 03/17/2018 at Unknown time sodium hypochlorite (DAKIN'S SOLUTION) 0.125 % soln Dakin's moistened gauze packing every other day to wound for bacterial control. Disp: 473 mL Rfl: 2 03/16/2018 at Unknown time warfarin (COUMADIN) 3 mg tablet Take 1 tablet by mouth daily as directed. Patient is taking 2mg Tuesday and and 3mg other days. (Patient taking differently: Take 3 mg by mouth once daily. ) Disp: Rfl: 03/16/2018 at Unknown time gabapentin (NEURONTIN) 300 mg capsule Take 1 capsule by mouth twice daily for 180 days. Disp: 180 capsule Rfl: 1 03/17/2018 at Unknown time ASCORBIC ACID (VITAMIN C ORAL) Take 1 tablet by mouth twice daily. Disp: Rfl: 03/17/2018 at Unknown time silver sulfADIAZINE (SILVADENE) 1 % cream Apply to leg wounds as directed. Disp: 50 g Rfl: 1 03/16/2018 at Unknown time acetaminophen (TYLENOL) 500 mg tablet Take 1,000 mg by mouth every 8 hours as needed. Disp: Rfl: 03/17/2018 at Unknown time aspirin, enteric coated (ASPIRIN, ENTERIC COATED) 81 mg EC tablet Take 81 mg by mouth every evening. Disp: Rfl: 03/17/2018 at Unknown time therapeutic multivitamin w/ iron (THERAGRAN-M) 9 mg iron-400 mcg tablet Take 1 tablet by mouth once daily. Disp: Rfl: 03/17/2018 at Unknown time levothyroxine (LEVOXYL) 100 mcg tablet Take 1 tablet by mouth once daily. Take on empty stomach. For Thyroid. Disp: 30 tablet Rfl: 11 03/17/2018 at Unknown time Zinc Sulfate 220 mg tab Take 1 tablet by mouth once daily for 14 days. Disp: 14 tablet Rfl: 0 Not Taking at Unknown time COMPOUNDED PRESCRIPTION Calcium Alginate 4x4 Dressing, change daily Dx: Blister left leg with infection S80.822A, L08.9; Lymphedema I89.0. Wound dimensions: 4 x 3 cm Disp: 14 Each Rfl: 0 Unknown at Unknown time Current hospital medications: warfarin 3 mg tab(s) (COUMADIN) 3 mg ORAL DAILY acetaminophen 1,000 mg tab(s) (TYLENOL) 1,000 mg ORAL q 6 H PRN gabapentin 300 mg cap(s) (NEURONTIN) 300 mg ORAL BID lisinopril 2.5 mg tab(s) (ZESTRIL, PRINIVIL) 2.5 mg ORAL DAILY metoprolol tartrate (short acting) 12.5 mg tab(s) (LOPRESSOR) 12.5 mg ORAL BID therapeutic multivitamin with iron (THERAGRAN-M) 1 tablet ORAL DAILY aspirin, enteric coated 81 mg tab(s) (ASPIRIN, ENTERIC COATED) 81 mg ORAL DAILY spironolactone 25 mg tab(s) (ALDACTONE) 25 mg ORAL BID pantoprazole DR 20 mg tab(s) (PROTONIX) 20 mg ORAL DAILY metOLAzone 2.5 mg tab(s) (ZAROXOLYN) 2.5 mg ORAL DAILY levothyroxine 100 mcg tab(s) (SYNTHROID) 100 mcg ORAL DAILY (6 AM) furosemide 40 mg injection (LASIX) 40 mg INTRAVENOUS q 8 H ondansetron orally disintegrating 4 mg tab(s) (ZOFRAN ODT) 4 mg ORAL q 6 H PRN ondansetron (PF) 4 mg injection (ZOFRAN) 4 mg INTRAVENOUS q 6 H PRN piperacillin-tazobactam 3.375 g in dextrose (iso-osmotic) 50 mL (ZOSYN) 3.375 g INTRAVENOUS q 6 H vancomycin 1.5 g in D5W 250 mL (VANCOCIN) 1.5 g INTRAVENOUS q 24 HR oxyCODONE-acetaminophen 5-325 mg 1 tablet (PERCOCET) 1 tablet ORAL q 8 H PRN perflutren lipid microspheres 1.1 mg/mL 1.3 mL injection (DEFINITY) 1.3 mL INTRAVENOUS DIRECTED PRN vancomycin dosing and monitoring per pharmacy OTHER As Directed Allergies As of Date: 03/17/2018 (No Known Allergies) Fully Assessed 03/17/2018 COMPLETE REVIEW OF SYSTEMS: Objective PHYSICAL EXAM: Gen NAD Lungs bilateral crackles, On NC CVS No murmurs appreciated Abd soft LE Right leg with multiple draining ulcers, yellow discharge. Mild surrounding erythema Patient Vitals for the past 24 hrs: BP Temp Temp src Pulse Resp SpO2 Height Weight 03/18/18 0752 104/64 37 ?C (98.6 ?F) Oral (!) 51 20 96 % - - 03/18/18 0301 125/89 37.4 ?C (99.3 ?F) Oral (!) 59 17 100 % - - 03/17/18 2324 129/90 37.2 ?C (99 ?F) Oral 67 18 100 % - - 03/17/18 2115 - - - - - 99 % - - 03/17/18 2100 - - - - - - 162.6 cm (5' 4) - 03/17/18 2038 163/81 36.9 ?C (98.4 ?F) Oral 112 18 88 % - - 03/17/18 1733 150/80 - - (!) 53 16 96 % - - 03/17/18 1639 157/68 - - (!) 54 16 98 % - - 03/17/18 1520 183/81 36.7 ?C (98 ?F) Oral 59 18 98 % - 93 kg (205 lb) 03/17/18 1519 183/81 - - 59 18 98 % - - Body mass index is 35.19 kg/m?. DATA: Recent Labs 03/18/18 0449 03/17/18 1540 WBC 8.93 6.75 HB 10.5* 11.9 PLT 205 227 INR -- 2.3* NA 137 136 K 4.4 4.2 CO2 28 27 BUN 36* 36* CREAT 1.14* 1.06* AST -- 19 ALT -- 8 TBILI -- 0.4 ALKPHOS -- 89 LACT -- 1.1 Diagnostic tests reviewed for today's visit: reviewed Impression/Recommendations Right leg ulcers Mild surrounding Cellulitis of RLE PAD Prior cx with 02/15 MSSA and Proteus mirabilis COPD CAD Afib RA Plan --Continue Zosyn --DC Vancomycin --Send wound cx --Check ESR and CRP, if elevated will need further imaging to evaluate for OM --Podiatry evaluation for IANDD SIGNATURE: Mariajose Roque MD PATIENT NAME: Rosa Beltran DATE: March 18, 2018 TIME: 8:06 AM Jessica Yeager DPM 03/18/2018 10:07 AM Signed CONSULT: POD SURG SERVICE SERVICE DATE: 03/18/2018 SERVICE TIME: 900 REASON FOR CONSULT: R leg wound with cellulitis PRIMARY CARE PHYSICIAN: Mani Newman MD Subjective Ms. Beltran is a 82 year old female who presents for R leg cellulitis with chronic ulcerations that have worsened in the past week per the patient she has increased redness and swelling. Pt states she has been taking PO Doxycycline without improving and was therefore sent to the ER for labs, evaluation and admitted for IV antibiotics. Pt [facility] and states she also has [facility] assist with dressing changes. Pt denies N/V/F/C/SOB. PAST MEDICAL HISTORY Diagnosis Date - Acquired hypothyroidism - Acute respiratory failure with hypoxia (HCC) 09/30/2017 - Atrial fibrillation (HCC) - CAD (coronary artery disease) Dr. Brenda Awan Hts, Promus element KIMMY LAD 11/20/2012, Stress test 04/2014 inferoapical reversible ischemia,small LVEF 48-50%, LHC 12/2014 L main-normal, LAD widely patent, Cx diffuse mild luminal irregularities with 80%focal stenosis distal, RCA dominant with minimal luminal irregularities. 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 - Pure hypercholesterolemia - Rheumatoid arthritis ([facility]) 2007 - Sleep apnea - Stented coronary artery 12/29/2016 PAST SURGICAL HISTORY Procedure Laterality Date - CC CORONARY STENT 11/20/2012 [facility] LAD - CC CORONARY STENT 12/20/2014 [facility], Cfx - SECTION HX - COLONOSCOPY 06/10/2017 [facility], Nonspecific cecal ulcer - GASTRIC BYPASS HX 1986 - HERNIA REPAIR HX 1987; 1989 - PAST SURGICAL HISTORY OF Right 09/2015 right tibia fracture ORIF - PAST SURGICAL HISTORY OF Right 01/20/2016 Removal of hardware, right tibia - TOTAL KNEE REPLACEMENT Right 2003 [facility] Gen. - TOTAL KNEE REPLACEMENT Left 2004 [facility] Gen. No family history on file. Social History Substance Use Topics - Smoking status: Passive Smoke Exposure - Never Smoker - Smokeless tobacco: Never Used Comment: smoked for 40 years - Alcohol use No Prescriptions Prior to Admission: metoprolol tartrate, short acting, (LOPRESSOR) 25 mg tablet Take 0.5 tablets by mouth twice daily. Disp: 30 tablet Rfl: 5 03/17/2018 at Unknown time lisinopril (ZESTRIL) 2.5 mg tablet Take 1 tablet by mouth every evening. Disp: 30 tablet Rfl: 5 03/17/2018 at Unknown time omeprazole (PRILOSEC) 20 mg capsule Take 1 capsule by mouth once daily. Disp: 30 capsule Rfl: 5 03/17/2018 at Unknown time docusate sodium (COLACE) 100 mg capsule Take 1 capsule by mouth once daily as needed for Constipation. Disp: 30 capsule Rfl: 5 Past Week at Unknown time furosemide (LASIX) 40 mg tablet Take 2 tablets by mouth twice daily. Disp: 120 tablet Rfl: 5 03/17/2018 at Unknown time spironolactone (ALDACTONE) 25 mg tablet Take 1 tablet by mouth twice daily. Disp: 60 tablet Rfl: 5 03/17/2018 at Unknown time metOLAzone (ZAROXOLYN) 2.5 mg tablet Take 2 tablets by mouth once daily. Disp: 60 tablet Rfl: 11 03/17/2018 at Unknown time sodium hypochlorite (DAKIN'S SOLUTION) 0.125 % soln Dakin's moistened gauze packing every other day to wound for bacterial control. Disp: 473 mL Rfl: 2 03/16/2018 at Unknown time warfarin (COUMADIN) 3 mg tablet Take 1 tablet by mouth daily as directed. Patient is taking 2mg Tuesday and and 3mg other days. (Patient taking differently: Take 3 mg by mouth once daily. ) Disp: Rfl: 03/16/2018 at Unknown time gabapentin (NEURONTIN) 300 mg capsule Take 1 capsule by mouth twice daily for 180 days. Disp: 180 capsule Rfl: 1 03/17/2018 at Unknown time ASCORBIC ACID (VITAMIN C ORAL) Take 1 tablet by mouth twice daily. Disp: Rfl: 03/17/2018 at Unknown time silver sulfADIAZINE (SILVADENE) 1 % cream Apply to leg wounds as directed. Disp: 50 g Rfl: 1 03/16/2018 at Unknown time acetaminophen (TYLENOL) 500 mg tablet Take 1,000 mg by mouth every 8 hours as needed. Disp: Rfl: 03/17/2018 at Unknown time aspirin, enteric coated (ASPIRIN, ENTERIC COATED) 81 mg EC tablet Take 81 mg by mouth every evening. Disp: Rfl: 03/17/2018 at Unknown time therapeutic multivitamin w/ iron (THERAGRAN-M) 9 mg iron-400 mcg tablet Take 1 tablet by mouth once daily. Disp: Rfl: 03/17/2018 at Unknown time levothyroxine (LEVOXYL) 100 mcg tablet Take 1 tablet by mouth once daily. Take on empty stomach. For Thyroid. Disp: 30 tablet Rfl: 11 03/17/2018 at Unknown time Zinc Sulfate 220 mg tab Take 1 tablet by mouth once daily for 14 days. Disp: 14 tablet Rfl: 0 Not Taking at Unknown time COMPOUNDED PRESCRIPTION Calcium Alginate 4x4 Dressing, change daily Dx: Blister left leg with infection S80.822A, L08.9; Lymphedema I89.0. Wound dimensions: 4 x 3 cm Disp: 14 Each Rfl: 0 Unknown at Unknown time Current hospital medications: warfarin 3 mg tab(s) (COUMADIN) 3 mg ORAL DAILY acetaminophen 1,000 mg tab(s) (TYLENOL) 1,000 mg ORAL q 6 H PRN gabapentin 300 mg cap(s) (NEURONTIN) 300 mg ORAL BID lisinopril 2.5 mg tab(s) (ZESTRIL, PRINIVIL) 2.5 mg ORAL DAILY metoprolol tartrate (short acting) 12.5 mg tab(s) (LOPRESSOR) 12.5 mg ORAL BID therapeutic multivitamin with iron (THERAGRAN-M) 1 tablet ORAL DAILY aspirin, enteric coated 81 mg tab(s) (ASPIRIN, ENTERIC COATED) 81 mg ORAL DAILY spironolactone 25 mg tab(s) (ALDACTONE) 25 mg ORAL BID pantoprazole DR 20 mg tab(s) (PROTONIX) 20 mg ORAL DAILY metOLAzone 2.5 mg tab(s) (ZAROXOLYN) 2.5 mg ORAL DAILY levothyroxine 100 mcg tab(s) (SYNTHROID) 100 mcg ORAL DAILY (6 AM) furosemide 40 mg injection (LASIX) 40 mg INTRAVENOUS q 8 H ondansetron orally disintegrating 4 mg tab(s) (ZOFRAN ODT) 4 mg ORAL q 6 H PRN ondansetron (PF) 4 mg injection (ZOFRAN) 4 mg INTRAVENOUS q 6 H PRN piperacillin-tazobactam 3.375 g in dextrose (iso-osmotic) 50 mL (ZOSYN) 3.375 g INTRAVENOUS q 6 H oxyCODONE-acetaminophen 5-325 mg 1 tablet (PERCOCET) 1 tablet ORAL q 8 H PRN perflutren lipid microspheres 1.1 mg/mL 1.3 mL injection (DEFINITY) 1.3 mL INTRAVENOUS DIRECTED PRN Allergies As of Date: 03/17/2018 (No Known Allergies) Fully Assessed 03/17/2018 COMPLETE REVIEW OF SYSTEMS: Neg except what's indicated above Objective PHYSICAL EXAM: Physical Exam Performed: Gen NAD Vasc: DP/PT Non-palpable 2/2 +2 edema Neuro: Intact Derm: Right lateral leg ulceration 5.0x7.0x 0.2cm. Mild serousanginous drainage, no malodor, 50% granular, 50%fibrotic base. Jennifer wound erythema, diffuse edema LE, deformity. Right medial wound 3.0x3.0x0.9cm. Dry, scabbing/scaling jennifer-wound. Musc: m/s +4/5 BP 104/64 Pulse 51 Temp (Src) 98.6 (Oral) Resp 20 Ht 5' 4 (1.63m) Wt 205 lb (93.0kg) SpO2 96% BMI 35.17 kg/(m2). DATA: Diagnostic tests reviewed for today's visit: Most recent labs and imaging results. CBC, Coags, BMP, Mg, Phos Recent Labs 03/18/18 0449 03/17/18 1540 WBC 8.93 6.75 HB 10.5* 11.9 HCT 35.0* 39.5 PLT 205 227 INR -- 2.3* APTT -- 39.4* NA 137 136 K 4.4 4.2 CHLOR 100 99 CO2 28 27 BUN 36* 36* CREAT 1.14* 1.06* GLUC 102* 115* CA 8.6 9.1 MG 1.7 -- Impression/Recommendations PAD COPD CAD Afib RA Right leg ulcerations Mild Cellulitis of RLE Pt seen and examined bedside, ulcerations stable, superficial, with mild cellultis, with diffuse LE edema Recommend wound care while in house Follow up outpatient in wound care center for debridement Wash with dakins, apply xeroform, ABDs, kerlix Follow cultures, already obtained Follow ID recs for abx recs PVRs already ordered Xrays neg for OM Follow ESR, CRP Cont wound care, will put orders in and follow up outpt for regular wound care debridements ? SIGNATURE: Jessica Yeager DPM PATIENT NAME: Rosa Beltran DATE: March 18, 2018 TIME: 9:55 AM PAGER: Gallito Clarke MD 03/18/2018 11:08 AM Signed HOSPITAL MEDICINE PROGRESS NOTE Name: Rosa Beltran SERVICE DATE: 03/18/2018 SERVICE TIME: 10:58 AM LOCATION / ROOM: [id number] Hospital Medicine/Primary Attending: Gallito Clarke MD NIGHT COVERAGE BETWEEN 5.30P-7.30A Page [phone] ASSESSMENT AND PLAN Active Hospital Problems Diagnosis - Leg ulcer, right, with fat layer exposed (HCC) Infected Leg Ulcers with cellulitis: Has no features of sepsis WBC normal XR Rt Ankle- No evidence of fracture or dislocation. No plain film findings of osteomyelitis.Deformity of distal right tibia and fibula and right hind foot, consistent with remote trauma, post-operative and degenerative change - Started on Vanc and Zosyn, but ID Dc vanco. - ESR/CRP ordered for OM eval -wound cultures sent. - Needs wound debridement - Consulted podiatry - wound care - Start IV lasix for leg swelling -wound care follow up ? Chronic Afib/ Severe Pulmonary HTN: Last ECHO in 02/07/2018 revealed moderate (2+) tricuspid valve regurgitation. - Estimated right ventricular systolic pressure is 82 mmHg consistent with severe pulmonary hypertension. Normal LV function, EF 63% Switch to IV lasix IO chart Resume Aldactone, lisinopril 2.5 mg, Metoprolol 12.5 mg BID Telemonitor Resume coumadin ? Hypothyroidism: resume home meds ? GERD: resume omeprazole ? 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 Medication and Non-Pharmacologic VTE Prophylaxis/Anticoagulants VTE Prophylaxis: on therapeutic anticoagulation ? SUBJECTIVE INTERVAL HPI: The pt was examined this AM. She was in a deep sleep. She seemed comfortable. MEDICATIONS: Reviewed Current Facility-Administered Medications: sodium hypochlorite topical irrigation 0.25% (DAKINS HALF- STRENGTH) IRRIGATION ONCE Jessica (Res) Jimmy warfarin 3 mg tab(s) (COUMADIN) 3 mg ORAL DAILY Dicksonramohjackelyn Meenakshisundaram 3 mg at 03/17/18 2135 acetaminophen 1,000 mg tab(s) (TYLENOL) 1,000 mg ORAL q 6 H PRN Chandramohan Meenakshisundaram 1,000 mg at 03/18/18 0608 gabapentin 300 mg cap(s) (NEURONTIN) 300 mg ORAL BID Chandramohan Meenakshisundaram 300 mg at 03/18/18 1024 lisinopril 2.5 mg tab(s) (ZESTRIL, PRINIVIL) 2.5 mg ORAL DAILY Chandramohan Meenakshisundaram 2.5 mg at 03/18/18 1023 metoprolol tartrate (short acting) 12.5 mg tab(s) (LOPRESSOR) 12.5 mg ORAL BID Chandramohan Meenakshisundaram 12.5 mg at 03/18/18 1024 therapeutic multivitamin with iron (THERAGRAN-M) 1 tablet ORAL DAILY Chandramohan Meenakshisundaram 1 tablet at 03/18/18 1023 aspirin, enteric coated 81 mg tab(s) (ASPIRIN, ENTERIC COATED) 81 mg ORAL DAILY Dicksonramlula Meenakshisundaram 81 mg at 03/18/18 1024 spironolactone 25 mg tab(s) (ALDACTONE) 25 mg ORAL BID [facility] 25 mg at 03/18/[address] 20 mg tab(s) (PROTONIX) 20 mg ORAL DAILY [facility] 20 mg at 03/18/18 0609 metOLAzone 2.5 mg tab(s) (ZAROXOLYN) 2.5 mg ORAL DAILY [facility] 2.5 mg at 03/18/18 1024 levothyroxine 100 mcg tab(s) (SYNTHROID) 100 mcg ORAL DAILY (6 AM) [facility] 100 mcg at 03/18/18 0609 furosemide 40 mg injection (LASIX) 40 mg INTRAVENOUS q 8 H [facility] 40 mg at 03/18/18 0608 ondansetron orally disintegrating 4 mg tab(s) (ZOFRAN ODT) 4 mg ORAL q 6 H PRN Dicksonramohan Meenakshisundaram 4 mg at 03/18/18 0609 Or ondansetron (PF) 4 mg injection (ZOFRAN) 4 mg INTRAVENOUS q 6 H PRN [facility] piperacillin-tazobactam 3.375 g in dextrose (iso-osmotic) 50 mL (ZOSYN) 3.375 g INTRAVENOUS q 6 H Dicksonrammaan Meenakshisundaram Last Rate: 100 mL/hr at 03/18/18 0608 3.375 g at 03/18/18 0608 oxyCODONE-acetaminophen 5-325 mg 1 tablet (PERCOCET) 1 tablet ORAL q 8 H PRN Chandramohan Meenakshisundaram perflutren lipid microspheres 1.1 mg/mL 1.3 mL injection (DEFINITY) 1.3 mL INTRAVENOUS DIRECTED PRN Chandramohan Meenakshisundaram OBJECTIVE PHYSICAL EXAM: BP 120/58 Pulse 60 Temp (Src) 98.6 (Oral) Resp 20 Ht 5' 4 (1.63m) Wt 205 lb (93.0kg) SpO2 96% BMI 35.17 kg/(m2). GENERAL: sleeping, no distress, cooperative LUNGS: Lungs clear to auscultation, Good diaphragmatic excursion CARDIAC: Normal S1 and S2; no rubs, murmurs, or gallops ABDOMEN: Abdomen soft, non-tender, BS normal, No masses or organomegaly EXTREMITIES:B/l 3 + pitting edema noted in both the legs, Rt Leg - 6 x 5 cm stage 2 ulcer with slough and yellowish drainage noted on the lateral aspect, Medial aspect - chronic changes from previous ulcer with erythema noted, erythema noted in the lower leg, deformities of toes noted from RA NEURO: AAND O x 3, speech normal, moves all 4 extremities DATA: Diagnostic tests reviewed for today's visit: Most recent labs CBC: WBC 8.93 03/18/2018 Hemoglobin 10.5 03/18/2018 Hematocrit 35.0 03/18/2018 Platelet Count 205 03/18/2018 CMP: Sodium 137 03/18/2018 Potassium 4.4 03/18/2018 BUN 36 03/18/2018 Creatinine 1.14 03/18/2018 Glucose 102 03/18/2018 Chloride 100 03/18/2018 CO2 28 03/18/2018 VTE Prophylaxis: Patient is already anti-coagulated. Disposition: pending. PT eval pending. Plan of care discussed with: Patient SIGNATURE: Gallito Clarke MD DATE: March 18, 2018 TIME: 10:58 AM Sydnee Bowles RN, RN 03/18/2018 4:43 PM Addendum Nursing Progress Note Patient Name: Rosa Beltran Patient Location: [facility]-0205/[id number] Daily Note: 1300. Paged Dr. Clarke to review Tele Strip. Pt. Had a 2 second pause back to back. Pt. Afib and occasionally A Flutter. No further orders a this time. 1530. Paged Dr. Clarke to review Tele Strip. Pt. Had another 2 second pause.Pt. Afib and occasionally A Flutter. No further orders a this time. Dr. Clarke stated to call him if patient has another pause and we will consult cardiology. 1630. Notified Dr. Clarke of patients BP. See doc flow sheets. Pt. Asymptomatic. No further orders given at this time. Will continue to monitor and reassess BP in 1 Hour. This note was completed by: Sydnee Bowles RN Previous Version Sydnee Bowles RN, RN 03/18/2018 4:46 PM Signed Nursing Progress Note Vital Historic Sites Supervisor Assessment Note Patient Name: Rosa Beltran Patient Location: [place] [id number] Patient Vitals in the past 4 hrs: 03/18/18 1537, BP:90/65, Temp:36.7 ?C (98 ?F), Temp src:Oral, Pulse:(!) 56, Resp:18, SpO2:97 % 03/18/18 1400, BP:120/64, Pulse:(!) 59 03/18/18 1312, Resp:18 Status Change Related to: Cardiac Issues (See Nursing Clinical Assessment For Details) The Following People Were Notified: Hospitalist/Laborist Caregiver/Provider: Dr. Clarke See Documentation Related to: Continuous Monitoring Additional Comments : Pt. on Tele. No further orders given at this time. Will reassess pt. in 1 hour. This note was completed by: ELENA Iyer LISW 03/19/2018 8:59 AM Signed CARE MANAGEMENT PROGRESS NOTE SERVICE DATE: 03/19/2018 SERVICE TIME: 8:59 AM LOS: 2 days FRONT TENDER updated ref to [facility]. Pt was active with [facility], TRAVEL DIRECTOR. Will need new F2F upon dc. CM to continue to follow and support. SIGNATURE: MERY Abraham PATIENT NAME: Rosa Beltran DATE: March 19, 2018 TIME: 8:58 AM PAGER/CONTACT #: [phone] Carrie Coello PT 03/19/2018 1:16 PM Signed PHYSICAL THERAPY MISSED VISIT SERVICE DATE: 03/19/2018 SERVICE TIME: 1100 to 1132 ROOM: [place] [address] Attempted Evaluation. Patient not seen due to Declined. Patient resting supine in bed at approach, PT enters room holding gait belt, before PT introduces self or role of services patient states You're from therapy, I know, but they told me it wasn't scheduled until lunch. It's 9:30, I can't do it now, I just got my neurontin and my Tylenol which makes me sleepy, I actually use the Tylenol to help me sleep and I am waiting on some fruit and tea that didn't come with my breakfast. Attempted to explained to pt role of services and limited availability of PT services this date with possible re-attempt this date for evaluation but otherwise tomorrow patient interrupts PT however stating You're going to go tell them I won't do it, I'm trying to tell you my schedule and on my schedule you aren't supposed to be here until later. Followed up with RN on pt declining at this time for reasons as above and possible re-attempt this date if schedule permits. RN also notified of pt request for fruit and tea. SIGNATURE: Carrie Coello PT PATIENT NAME: Rosa Beltran DATE: March 19, 2018 TIME: 9:36 AM PAGER/CONTACT #: [phone] Carrie Coello PT 03/19/2018 12:12 PM Signed Physical Therapy Evaluation SERVICE DATE: 03/19/2018 SERVICE TIME: 1100 to 1132 ROOM: [place] [address] Recommended Discharge Disposition: Subacute/SNF Recommended Discharge Disposition Comments: Patient is + fall risk, presents with significant generalized weakness and balance deficits; very limited assist available (daughter in law however works during the day), indicates need for continued PT post-acute stay in SNF setting prior to return home Justification For Post Acute Needs: Community discharge potential unknown;Functional status improvement unknown;Medically complex;May not tolerate higher intensity programing;Anticipate that patient will require daily (5x/wk) skilled therapy in a post-acute facility setting at the time of acute hospital discharge Anticipated Discharge Needs: Physical Assist at Home;Supervision at Home Physical Assist at Home for: Cleaning;Laundry;Meals;Medication Management;Self Care;Shopping;Transportation Supervision at Home due to: Decreased safety awareness;Impaired cognition Recommended Discharge Equipment: No equipment needs anticipated PT Recommendations to Nursing: Ambulate with device;To bathroom;Transfer to/from chair;OOB for Meals;Utilize bed in chair position;With assist of 1 person;Other: See Comment (offload R wound to prevent further skin breakdown) Device: Wheeled Walker (gait belt) PT 6 Clicks Score: 17 Precautions/Activity Restrictions: Diabetic;Fall Risk;Lines/Tubes/Drains;Other: See Comments (standard, mobilize) ASSESSMENT : Patient presents with R foot wound and subsequent impaired balance, strength, activity tolerance, safety and independence with all functional mobility below reported functional baseline. Patient is alert and oriented x 3 however exhibits moments throughout of confusion and forgetfulness. Patient also noted to be very easily agitated and argumentative with questioning/clarification of statements (due to pt reporting 2 different things at different times throughoutevaluation-occurs multiple times). Patient stating I don't think you get it, I have told you several times however each statement made previously pt responded with different answer to-questions/statements are related to PLOF, home environment, complaints/requests throughout session. Patient exhibits much weakness with isolated MMT and functional mobility throughout B LEs with consistent complaints of pain limiting mobility as well throughout. Patient appears to be lacking insight into current limitations, + high anxiety and easily distractible, (-) safety awareness. Requires skilled PT during and post-acute stay for functional mobility training, reinforcing throughout energy conservation techniques, monitoring vitals/response PRN and progression of exercises to improve strength,balance, safety and independence with all mobility tasks. Patient Disposition at Start of Session: Supine in Bed Patient Disposition at End of Session: OOB in Chair;Call Banda in Reach (lunch tray set-up, PCNA in room changing linens) Tolerance Limited By Fatigue;Pain;Cooperation (very easily agitated/argumentative, ?d/t confusion) Physical Therapy Problem List: Cognitive Deficit;Education Deficit;Pain;Safety Deficits;Decreased Activity Tolerance;Decreased Range Of Motion;Decreased Strength;Functional Mobility Impairment;Balance Impaired;Sensory Deficit;Decreased Skin Integrity Patient /Caregiver Goals: Go Home (adamant about return home,states refusing home PT or SNF) Goals for Plan of Care: Able to perform HEP with: Supervision (B LEs x 15-20 reps with handout to (+) strength,balance) Transfer supine to/from sit with: Supervision (with use of bed controls PRN) Transfer sit to/from stand with: Supervision (with LRAD to increase safety with OOB activity) Ambulate with: Supervision Distance: 100-150 feet Device: (LRAD) Ambulate up and down curb step with: Stand By Assistance Device: (LRAD to ensure safety in community) Transfer: Transfer bed to/from chair with LRAD with no more than supervision to increase safety with OOB activity Goal: Improve static and dynamic standing balance with LRAD to require no more than supervision to increase safety with all standing activities and reduce fall risk Rehab Potential: Fair PLAN: Treatment Frequency (times per week): 3 Current admission Treatment Interventions: Education;Energy Conservation Training;Joint Mobility;Strengthening;Functional Mobility Training;Balance Training;Neuromuscular Re-education Plan of Care developed with: Patient TREATMENT INTERVENTIONS: Therapy Diagnosis: Reduced mobility-other;Muscle Weakness (generalized);Unsteadiness on feet Interventions Provided: Evaluation;Therapeutic Activity (57799);Gait Training (34307) $ Evaluation-Low (58235) Billed Units: 1 unit Therapeutic Activity (48341) Treatment Minutes: 9 1 unit Skilled Intervention(s): Instructed patient in supine to sit pushing with upper extremities to sit up Instruction in sit to and from stand technique with proper hand placement and body positioning at edge of bed/chair See below for additional cues and assist Education: Pt educated in role of PT during acute stay and PT POC, importance of OOB activity to reduce risk of functional decline, including recommendation for up in chair throughout the day especially for all meals, goal of upright sitting in chair post-treatment x 30-60 minutes,rationale for discharge recommendation of SNF (adamantly declines SNF as well as home PT), use of call light 100% of the time for assist, parameters for safe home going, rationale for equipment recommendation of use of FWW for safety at all times with all mobility -pt relates use of furniture for support in home, resistant to recommendation due to tight spaces however did discuss concern with + risk of falling briefly (furtherdiscussion deferred to minimize pt agitation) Gait Training (50952) Treatment Minutes: 4 Skilled Intervention(s): Instruction in sequencing, gait pattern, Instruction in correction of gait deviations, Instruction in use of equipment, cues for sequence and pattern and See below for additional cues and assist PT with negotiation of O2 tow, x 3LO2 (due to no available setting for 2.5LO2 on tank) Total Timed Code Treatment Minutes: 13 Total Treatment Time (minutes): 32 FUNCTIONAL G CODE: PT 6 Clicks Score: 17 (03/19/181099) Mobility: Walking and Moving Around Current Status (G8978): CK (03/19/181099) Mobility: Walking and Moving Around Goal Status (G8979): CJ (03/19/181099) Based on clinical assessment and the score on the 6 Clicks Functional Assessment Tool, the G code and corresponding severity modifiers are documented above. SUBJECTIVE: Current Hospital Course: Chart reviewed; Patient presents to ED from wound clinic due to worsening R LE wound Reason for Physical Therapy Consult : post-acute placement Relevant Past Medical History: atrial fibrillation, CAD, COPD, depressive disorder, HTN, RA Patient Report: Patient previously this date adamantly refused PT (see note), stating at this time I didn't refuse you, I would have done it, it just wasn't the right time I will do whatever you need me to do, agreeable to PT evaluation/treatment, ok per RN for PT Patient lunch arrives during session, patient states name and to dietary personnel and questions what is on lunch tray, later once in chair states not being aware lunch had arrived, reminded pt of interaction with dietary personnel and questioning food selection, pt becomes agitated, unable to recall They have me on 2.5 LO2 here because I usually wear 3, the wound center wanted me on 2 though and the hospital said to leave me on 3 so they negotiated and put me on 2.5 Home Environment Patient Lives With: Self/Alone Assistance Available: PRN (daughter in law lives in upstairs apt,works during the day) Entry To Home: Other: See Comment (has stair lift takes me from my car into the apartment) Number Of Stairs To Bed/Bath: 0 Tub/Shower Type: walk in tub-with questions to clarify pt becomes easily agitated Equipment Owned: Grab Bars-Shower;Grab Bars-Toilet;Hospital Bed;Wheeled Walker Prior Functional Level: Required Assistance Assistance Required With: Ambulation;Shopping;Transportation Prior Functional Level Comments: Pt with confusion intermittently-question accuracy; states primarily uses furniture for support in apt- doorways/paths not wide enough for walker but does use FWW to ambulate to far side of apartment, indep with ADLs-sponge bathes since unable to get in shower due to R leg wound; dtr in law assists PRN with IADLs and drives OBJECTIVE: CURRENT FUNCTIONAL STATUS: Current Functional Mobility Assist Level Additional Information Rolling Supine to Sit Contact Guard Assistance (with + time especially R LE management,HOB 32 degrees) Verbal cues for goal of task, sequencing, LE progression, bed in max inflate mode Sit to Supine (not tested; up in bedside chair post-treatment) Scooting Contact Guard Assistance (forward/retro bed/chair with + time) Verbal cues for goal of task, use of UEs Sit to Stand Contact Guard Assistance (to slight min assist for initial boost up to FWW x 1 trial) Verbal cues for safe hand placement (consistently initially attempts to reach to pull up from arm rail of bedside chair, agitated with PT recommendation/suggestion of B UEs to push off bed surface for improved safety), safe approach (chair brought up behind pt), controlled descent Stand to Sit Contact Guard Assistance (from FWW to chair x 1 trial) See above Bed to Chair Toilet/Commode Gait Contact Guard Assistance Gait Device: Wheeled Walker (gait belt) Gait Distance (feet): 25 feet x 1-pt initially declines further gait distance due to pain,however once sitting states I could have walked further Stairs (not tested/not applicable) Curb Step Car Transfer Gait Deviations Right Lower Extremity: Stance time decreased;Heel strike during initial stance decreased;Push-off during terminal stance decreased;Step length decreased Gait Deviations Left Lower Extremity: Heel strike during initial stance decreased;Push-off during terminal stance decreased;Step length decreased General Gait Deviations: Lori decreased;Step length decreased;Flexed trunk posture;Other: See comment (min step through, fatigues quickly, +fall risk) -Patient sitting up in bedside chair post-treatment, call banda and personal belongings in reach, RN notified of patient status, denies needs at this time. -Gait belt in place for safety with all functional mobility -Lines/Tubes/Drains: Intact and as follows: x2.5LO2 via nasal cannula, heplock -Range of Motion: L LE WFL AROM as well as R LE with exception R ankle, limited by 50% due to wound and pain See OT evaluation for assessment of UE range of motion. -Strength: not tested R ankle secondary to wound and pain, otherwise B LEs all joints no more than 3 to 3+/5 See OT evaluation for assessment of UE strength. Balance: Static Sitting;Static Standing;Dynamic Standing Static Sitting Balance: Supervision (sitting up at EOB and in chair) Static Standing Balance: Contact Guard Assistance (with BUEs on FWW) Dynamic Standing Balance: Contact Guard Assistance (with B UEs on FWW) Please see discipline specific clinical documentation flowsheet for complete details for this therapy evaluation/treatment. SIGNATURE: Carrie Coello, PT PATIENT NAME: Rosa Beltran DATE: March 19, 2018 TIME: 12:01 PM PAGER/CONTACT #: [phone] Herrera Rosario 03/19/2018 1:26 PM Signed PHARMACY WARFARIN EDUCATION Patient Name: Rosa Beltran Account #: Data Unavailable Admission Date: 03/17/2018 2:57 PM Date of Contact: March 19, 2018 Time of Contact: 1:19 PM Patient new to warfarin? No: Previous (home) dosage: 2mg alternatea with 3mg Outpatient follow-up plan: As before Indication for warfarin: atrial fibrillation Target INR range: 2.0 - 3.0 (Target 2.5) Patient declined warfarin education. Patient declined booklet Understanding the Anticoagulant Medication Warfarin (Coumadin). Alisa Beltre Pharmacist Gallito Clarke MD 03/19/2018 3:22 PM Signed HOSPITAL MEDICINE PROGRESS NOTE Name: Rosa Beltran SERVICE DATE: 03/19/2018 SERVICE TIME: 1:39 PM LOCATION / ROOM: [facility]2S0205/[id number] Hospital Medicine/Primary Attending: Gallito Clarke MD NIGHT COVERAGE BETWEEN 5.30P-7.30A Page [phone] ASSESSMENT AND PLAN Active Hospital Problems Diagnosis - Leg ulcer, right, with fat layer exposed (HCC) Infected Leg Ulcers with cellulitis: Has no features of sepsis WBC normal XR Rt Ankle- No evidence of fracture or dislocation. No plain film findings of osteomyelitis.Deformity of distal right tibia and fibula and right hind foot, consistent with remote trauma, post-operative and degenerative change - Started on Vanc and Zosyn, but ID Dc vanco. - ESR/CRP elevated, will get MRI for osteo eval. -wound cultures sent and are pending. BCx negative to date. - Needs wound debridement - Consulted podiatry - wound care - was on IV lasix for leg swelling but due to ping held -wound care follow up ? PING -likely medication induced and over diuresis. UOP was 6L out -will hold all diuretics including lasix, metolozone, aldactone and ankit -will give 1L at 75cc/hr -f/u BMP Chronic Afib/ Severe Pulmonary HTN: Last ECHO in 02/07/2018 revealed moderate (2+) tricuspid valve regurgitation. - Estimated right ventricular systolic pressure is 82 mmHg consistent with severe -pulmonary hypertension. Normal LV function, EF 63% IO chart -Aldactone, lasix lisinopril 2.5 mg held due to PING -Metoprolol 12.5 mg BID, held due to sinus pauses of 1-2seconds. If >3sec, will get EP cardio on board. -Telemonitor. Echo pending. -Resume coumadin ? Hypothyroidism:?resume home meds ? GERD: resume omeprazole ? 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 Medication and Non-Pharmacologic VTE Prophylaxis/Anticoagulants SUBJECTIVE INTERVAL HPI: Feels better, no fever, chills, cp nor palpitations. She has no other issues. No events overnight MEDICATIONS: Reviewed Current Facility-Administered Medications: piperacillin-tazobactam 3.375 g in dextrose (iso-osmotic) 50 mL (ZOSYN) 3.375 g INTRAVENOUS q 8 H Checo Kay MD warfarin 3 mg tab(s) (COUMADIN) 3 mg ORAL DAILY Karishma Meenakshisundaram 3 mg at 03/18/182013 acetaminophen 1,000 mg tab(s) (TYLENOL) 1,000 mg ORAL q 6 H PRN Karishma Meenakshisundaram 1,000 mg at 03/19/18822 gabapentin 300 mg cap(s) (NEURONTIN) 300 mg ORAL BID Dicksonramlula Meenakshisundaram 300 mg at 03/19/18 0824 lisinopril 2.5 mg tab(s) (ZESTRIL, PRINIVIL) 2.5 mg ORAL DAILY [facility] 2.5 mg at 03/18/18 1023 therapeutic multivitamin with iron (THERAGRAN-M) 1 tablet ORAL DAILY [facility] 1 tablet at 03/19/18 0824 aspirin, enteric coated 81 mg tab(s) (ASPIRIN, ENTERIC COATED) 81 mg ORAL DAILY [facility] 81 mg at 03/18/18 1024 spironolactone 25 mg tab(s) (ALDACTONE) 25 mg ORAL BID [facility] 25 mg at 03/18/[address] 20 mg tab(s) (PROTONIX) 20 mg ORAL DAILY [facility] 20 mg at 03/19/18 0554 metOLAzone 2.5 mg tab(s) (ZAROXOLYN) 2.5 mg ORAL DAILY [facility] 2.5 mg at 03/18/18 1024 levothyroxine 100 mcg tab(s) (SYNTHROID) 100 mcg ORAL DAILY (6 AM) [facility] 100 mcg at 03/19/18 0554 furosemide 40 mg injection (LASIX) 40 mg INTRAVENOUS q 8 H [facility] Me[facility] 40 mg at 03/19/18 0554 ondansetron orally disintegrating 4 mg tab(s) (ZOFRAN ODT) 4 mg ORAL q 6 H PRN [facility] 4 mg at 03/19/18 0624 Or ondansetron (PF) 4 mg injection (ZOFRAN) 4 mg INTRAVENOUS q 6 H PRN [facility] oxyCODONE-acetaminophen 5-325 mg 1 tablet (PERCOCET) 1 tablet ORAL q 8 H PRN Dicksonrammaan Meenakshisundaram perflutren lipid microspheres 1.1 mg/mL 1.3 mL injection (DEFINITY) 1.3 mL INTRAVENOUS DIRECTED PRN Dicksonmalik Cleary OBJECTIVE PHYSICAL EXAM: BP 123/76 Pulse 72 Temp (Src) 97.7 (Axillary) Resp 18 Ht 5' 4 (1.63m) Wt 205 lb (93.0kg) SpO2 98% BMI 35.17 kg/(m2). GENERAL: sleeping, no distress, cooperative LUNGS: Lungs clear to auscultation, Good diaphragmatic excursion CARDIAC: Normal S1 and S2; no rubs, murmurs, or gallops ABDOMEN: Abdomen soft, non-tender, BS normal, No masses or organomegaly EXTREMITIES:B/L pitting edema +1. Right lower extremity cleanly bandaged. NEURO: AAND O x 3, speech normal, moves all 4 extremities ? DATA: Diagnostic tests reviewed for today's visit: Most recent labs CBC: WBC 8.93 03/18/2018 Hemoglobin 10.5 03/18/2018 Hematocrit 35.0 03/18/2018 Platelet Count 205 03/18/2018 CMP: Sodium 135 03/19/2018 Potassium 4.3 03/19/2018 BUN 44 03/19/2018 Creatinine 1.79 03/19/2018 Glucose 76 03/19/2018 Chloride 96 03/19/2018 CO2 30 03/19/2018 VTE Prophylaxis: Patient is already anti-coagulated. Disposition: PT Eval Plan of care discussed with: Patient SIGNATURE: Gallito Clarke MD DATE: March 19, 2018 TIME: 1:[address] 03/19/2018 2:08 PM Signed NUTRITION THERAPY NOTE SERVICE DATE: 03/19/2018 SERVICE TIME: 1035 Anthropometrics: Height: 162.6 cm (5' 4) Current Weight: Weight: 93 kg (205 lb) Patient was unsure of her dry weight; currently with generalized edema Date: Wt: 03/17/2018 93 kg (205 lb) 03/06/2018 93 kg (205 lb) 02/03/2018 95.7 kg (211 lb) 01/06/2018 93.4 kg (206 lb) 12/19/2017 91.3 kg (201 lb 4.5 oz) 09/16/2017 93.4 kg (206 lb) 03/07/2017 90.3 kg (199 lb) Body mass index is 35.19 kg/m?. 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 No Allergies: ALLERGIES No Known Allergies Reason for Visit: Normal appetite reported No issues chewing, swallowing, nausea or emesis reported. Nursing Admission Assessment Malnutrition Score Tool: 2 Plan of Care: Recommendation Reviewed current labs and physician progress notes Will follow up again within 5 days or as consulted Discharge Plan: Home on heart healthy diet MNT Billing Type: Initial Assess/15 min 1 unit SIGNATURE: Deborah Colin RD PATIENT NAME: Rosa Beltran DATE: March 19, 2018 TIME: 2:03 PM Sydnee Bowles, RN, RN 03/19/2018 6:16 PM Signed Nursing Progress Note Vital Historic Sites Supervisor Assessment Note Patient Name: Rosa Beltran Patient [facility]: [facility]/[id number] Patient Vitals in the past 4 hrs: 03/19/18 1800, SpO2:98 % 03/19/18 1747, BP:98/60, Temp:36.5 ?C (97.7 ?F), Temp src:Oral, Pulse:(!) 56, Resp:18, SpO2:88 % 03/19/18 1530, Resp:18 03/19/18 1500, BP:80/50 03/19/18 1457, BP:(!) 86/49, Temp:36.4 ?C (97.5 ?F), Temp src:Oral, Pulse:(!) 54, Resp:18, SpO2:93 % Status Change Related to: Other Issues (See Nursing Clinical Assessment For Details) The Following People Were Notified: Hospitalist/Laborist Caregiver/Provider: See Documentation Related to: IV Therapy Additional Comments : Pt. started on IV Therapy. No further orders at this time. MD aware of patients VS. This note was completed by: Sydnee Bowles RN Checo Kay MD, MD 03/20/2018 1:26 PM Signed INFECTIOUS DISEASE PROGRESS NOTE Patient Name: Rosa Beltran INTERVAL HISTORY: No fevers. R leg cultures are pending. WBC now normal. ROS checked in details. All qs answered. Patient Active Hospital Problem List: Leg ulcer, right, with fat layer exposed (HCC) (03/17/2018) ASSESSMENT: Right leg ulcers Mild surrounding Cellulitis of RLE PAD Prior cx with 02/15 MSSA and Proteus mirabilis COPD CAD Afib RA ? Plan --Continue Zosyn --Off Vancomycin now --Follow wound cx, had MSSA in prior cultures --Check ESR and CRP, 52 and 6 respectively. Will discuss w podiatry as XR negative for OM --Podiatry evaluation for IANDD MEDICATIONS: reviewed. Current hospital medications: piperacillin-tazobactam 3.375 g in dextrose (iso-osmotic) 50 mL (ZOSYN) 3.375 g INTRAVENOUS q 8 H warfarin 3 mg tab(s) (COUMADIN) 3 mg ORAL DAILY acetaminophen 1,000 mg tab(s) (TYLENOL) 1,000 mg ORAL q 6 H PRN gabapentin 300 mg cap(s) (NEURONTIN) 300 mg ORAL BID therapeutic multivitamin with iron (THERAGRAN-M) 1 tablet ORAL DAILY aspirin, enteric coated 81 mg tab(s) (ASPIRIN, ENTERIC COATED) [address] DAILY [address]opraz[address] 20 mg tab(s) (PROTONIX) 20 mg ORAL DAILY levothyroxine 100 mcg tab(s) (SYNTHROID) 100 mcg ORAL DAILY (6 AM) ondansetron orally disintegrating 4 mg tab(s) (ZOFRAN ODT) 4 mg ORAL q 6 H PRN ondansetron (PF) 4 mg injection (ZOFRAN) 4 mg INTRAVENOUS q 6 H PRN oxyCODONE-acetaminophen 5-325 mg 1 tablet (PERCOCET) 1 tablet ORAL q 8 H PRN perflutren lipid microspheres 1.1 mg/mL 1.3 mL injection (DEFINITY) 1.3 mL INTRAVENOUS DIRECTED PRN PHYSICAL EXAM: Vital signs: BP 107/58 Pulse (!) 56 Temp 36.4 ?C (97.5 ?F) (Oral) Resp 16 Ht 162.6 cm (5' 4) Wt 90.4 kg (199 lb 4.7 oz) SpO2 100% BMI 34.21 kg/m? Temp (24hrs), Av.4 ?C (97.6 ?F), Min:36.3 ?C (97.3 ?F), Max:36.6 ?C (97.9 ?F) General: alert, oriented, NAD Lungs: bilaterally clear to auscultation Heart: regular rate and rhythm Abdomen: soft, non tender, non distended, BS+ Extremities: R leg wound w dressing and redness receeding No rashes No joint inflammation Neck supple Lines ok No CVAT Labs: Recent Labs 03/20/18 0500 03/19/18 0453 03/18/18 0449 03/17/18 1540 WBC -- -- 8.93 6.75 HB -- -- 10.5* 11.9 HCT -- -- 35.0* 39.5 PLT -- -- 205 227 INR -- 2.4* 2.3* 2.3* APTT -- -- -- 39.4* NA 134* 135* 137 136 K 4.2 4.3 4.4 4.2 CHLOR 95* 96* 100 99 CO2 30 30 28 27 BUN 45* 44* 36* 36* CREAT 1.65* 1.79* 1.14* 1.06* Microbiology data: reviewed Imaging data: reviewed Checo Kay MD Pager: Date of service: 03/20/2018 Time of service: 10:46 AM This note is not final until Authenticated by responsible provider. Liza Barry MD 03/20/2018 1:08 PM Signed DEPARTMENT OF HOSPITAL MEDICINE PROGRESS NOTE SERVICE DATE: 03/20/2018 SERVICE TIME: 12:58 PM Hospital Medicine/Primary Attending: Liza Barry MD NIGHT AND WEEKEND COVERAGE: Nights: Please contact pager [phone]. Subjective INTERVAL HPI: pt seen and examined, comfortable MEDICATIONS: Reviewed Objective PHYSICAL EXAM: BP 112/54 Pulse 58 Temp (Src) 98.6 (Oral) Resp 16 Ht 5' 4 (1.63m) Wt 199 lb 4.7 oz (90.4kg) SpO2 100% BMI 34.19 kg/(m2). Physical Exam Performed GENERAL: Alert, no distress, cooperative SKIN: Skin color, texture, turgor normal. No rashes or lesions. LUNGS: Lungs clear to auscultation, Good diaphragmatic excursion CARDIAC: Normal S1 and S2; no rubs, murmurs, or gallops ABDOMEN: Abdomen soft, non-tender, BS normal, No masses or organomegaly EXTREMITIES: right lower extremity wrapped, right foot deformed, everted Lines, Drains, and Airways Line Peripheral 03/19/18 2200 Assessment Short Right Forearm 22 Gauge less than 1 day Drain Indwelling Urinary Catheter 03/17/18 1903 Vitale 20 Fr 2 days DATA: Diagnostic tests reviewed for today's visit: Most recent labs and imaging results. Recent Labs 03/20/18 0500 03/19/18 0453 03/18/18 0449 03/17/18 1540 WBC -- -- 8.93 6.75 HB -- -- 10.5* 11.9 PLT -- -- 205 227 INR 2.2* 2.4* 2.3* 2.3* NA 134* 135* 137 136 K 4.2 4.3 4.4 4.2 CO2 30 30 28 27 BUN 45* 44* 36* 36* CREAT 1.65* 1.79* 1.14* 1.06* AST -- -- -- 19 ALT -- -- -- 8 TBILI -- -- -- 0.4 ALKPHOS -- -- -- 89 WSR -- 52* 52* -- CRP -- 6.0* -- -- LACT -- -- -- 1.1 Assessment/Plan Active Problems: Right leg cellulitis Continue empiric abx ID eval Podiatry input appreciated, local wound care PVR studies pending CRP 6 AFib, Chronic Rate controlled Continue coumadin ,check inr daily Beta louann dc'ed in view of sinus pauses which have resolved PING ? 2/2 volume depletion from diuresis Monitor renal function ANKIT and diuretics held Will give 1/2L of 1/2NS today and recheck renal function in am Medication and Non-Pharmacologic VTE Prophylaxis/Anticoagulants Anticoagulant AND Antiplatelet Medications Start Dose Route Frequency Ordered Stop 03/18/18 0900 aspirin, enteric coated 81 mg tab(s) (ASPIRIN, ENTERIC COATED) 81 mg ORAL DAILY 03/17/182017 -- 03/17/182029 warfarin 3 mg tab(s) (COUMADIN) 3 mg ORAL DAILY 03/17/182017 -- 03/17/182029 vte non-pharmacologic prophylaxis contraindicated (fl,oh) 03/17/182029 vte current anticoag therapy (fl,oh) VTE Prophylaxis: VTE prophylaxis appropriate Disposition: Home with [facility] Plan of care discussed with: Patient SIGNATURE: Liza Barry MD PATIENT NAME: Rosa Beltran DATE: March 20, 2018 TIME: 12:58 PM PAGER/CONTACT #: [phone] etx [phone] Maritza Cadet RN, RN 03/20/2018 2:54 PM Signed CARE MANAGEMENT PROGRESS NOTE SERVICE DATE: 03/20/2018 SERVICE TIME: 2:51 PM LOS: 3 days Needs Prior to Discharge: Home Care Order;To Be Determined;Other: See Comment;Wound Care (Medical Clearance) EMR reviewed. RN EMILY met with patient at bedside to discuss the discharge plan. Physical Therapy is recommending SNF. Patient is declining SNF at this time and indicates that she plans on returning home with [facility] for wound care. Patient indicates that she does not feel she needs PT/OT at home. Patient also reports that she wears 2-3 liters of O2 PRN and has a portable O2 tank available if needed. CM assigned will continue to follow. SIGNATURE: Maritza Cadet RN PATIENT NAME: Rosa Beltran DATE: March 20, 2018 TIME: 2:51 PM PAGER/CONTACT #: [phone] Timothy Esposito RN, RN 03/21/2018 1:07 AM Signed Nursing Progress Note Patient Name: Rosa Beltran Patient Location: [facility]0205/[id number] Daily Note: 0107 LIP paged r/t order clarification. This note was completed by: ELENA Shirley RN, RN 03/21/2018 1:10 AM Signed Nursing Progress Note Vital Historic Sites Supervisor Assessment Note Patient Name: Rosa Beltran Patient Location: [facility]0205/[id number] Patient Vitals in the past 4 hrs: 03/20/18 2327, BP:115/69, Temp:37.2 ?C (99 ?F), Temp src:Oral, Pulse:(!) 57, Resp:18, SpO2:94 % Status Change Related to: Cardiac Issues (See Nursing Clinical Assessment For Details) The Following People Were Notified: Attending Physician Caregiver/Provider: Dr. Mercado. See Documentation Related to: Continuous Monitoring Additional Comments : This note was completed by: ELENA Shirley, RN, RN 03/21/2018 10:32 AM Signed MULTIDISCIPLINARY ROUNDS SERVICE DATE: 03/21/2018 ADMISSION DATE: 03/17/2018 SERVICE TIME: 9:30 AM ANTICIPATED D/C DATE: TBD Problem List: ACTIVE PROBLEM LIST Gastroesophageal Reflux Disease Without Esophagitis Chronic Atrial Fibrillation (Hcc) Pure Hypercholesterolemia Hypertension Acquired Hypothyroidism Cad (Coronary Artery Disease) Primary Osteoarthritis Involving Multiple Joints Lymphedema of Both Lower Extremities Mouth Dryness Muscular Weakness Dorsalgia Stented Coronary Artery Gastric Bypass Status for Obesity Bilateral Leg Ulcer (Hcc) Polyneuropathy (Hcc) Cecal Ulcer Respiratory Failure With Hypoxia (Hcc) 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 Barry Needs Discussed on Rounds: Plan of Care Anticipated Discharge Disposition: Home with Home Health Care Last Vitals: BP 133/67 Pulse 55 Temp (Src) 97.5 (Oral) Resp 18 Ht 5' 4 (1.63m) Wt 206 lb 2.1 oz (93.5kg) SpO2 96% BMI 35.36 kg/(m2). EMR reviewed. Plan for OR for IANDD of RLE today. ID following. Wound cultures pending. Patient currently refusing SNF. Plans on returning hoe with resumption of [facility]. Nursing: Cardiac Intervention(s) Plan: Monitor and Assess Vital Signs and IANDO Report Significant Changes to LIP;Monitor Rhythm Strips and EKG and Report Changes to LIP;Monitor Labs Cardiac Goals/Outcomes: Patient Optimal Cardiac Function Evidence by: Vital Signs Stable, Control Chest Pain, Adequate Oxygenation, Cardiac Goal Target Achievement Date: 03/23/18 Elimination Bladder/Bowel Intervention(s) Plan: Monitor Fluids and Electrolytes;Assist to Commode or Bathroom (Targeting Toileting);Provide Privacy Elimination Bladder/Bowel Goals/Outcomes: Maintain Skin Integrity Elimination Bladder/Bowel Goal Target Achievement Date: 03/23/18Mobility Intervention(s) Plan: Pain Management;Position to Optimal Function;Assist with Ambulation and Transfers;[place] Safety Measures;Pressure Ulcer Prevention Mobility Patient/Family Goals: Patient Free of Complications such as Skin Breakdown, Contractures, Loss of Joint Mobility During Hospitalization Mobility Goal Target Achievement Date: 03/23/18 Pain Intervention(s) Plan: Pain Assessment, Management, Reassessment Per Scoring Tool Pain Goals/Outcomes: Decrease in Pain Level per Scoring Tool Pain Goal Target Achievement Date: 03/23/18 Respiratory Alteration Intervention(s) Plan: Assess and Monitor Respiratory Status Respiratory Alteration Goals/Outcomes: Decrease of Respiratory Distress Respiratory Goal Target Achievement Date: 03/23/18 Safety Intervention(s) Plan: Employ Safe Mobility Safety Goals/Outcomes: Maintain Patient Safety Safety Goal Target Achievement Date: 03/23/18kin Intervention(s) Plan: Assess and Document Skin Condition per Protocol Skin Goals/Outcomes: Patient's Skin Integrity Maintained or Improved Skin Goal Target Achievement Date: 03/23/18 DOCUMENTED BY: Maritza Cadet RN PATIENT NAME: Rosa Beltran DATE: March 21, 2018 TIME: 10:29 AM CSN: [id number] Jessica Yeager DPM 03/21/2018 10:15 AM Signed CONSULT PROGRESS NOTE SERVICE DATE: 03/21/2018 SERVICE TIME: 900 CONSULTING SERVICE: POD Surg Subjective INTERVAL HPI: Pt seen and examined bedside. Pain to RLE, but controlled. Denies N/V/F/C. SHe Believes her wounds are draining more. Current hospital medications: docusate sodium 100 mg cap(s) (COLACE) 100 mg ORAL BID PRN piperacillin-tazobactam 3.375 g in dextrose (iso-osmotic) 50 mL (ZOSYN) 3.375 g INTRAVENOUS q 8 H warfarin 3 mg tab(s) (COUMADIN) 3 mg ORAL DAILY acetaminophen 1,000 mg tab(s) (TYLENOL) 1,000 mg ORAL q 6 H PRN gabapentin 300 mg cap(s) (NEURONTIN) 300 mg ORAL BID therapeutic multivitamin with iron (THERAGRAN-M) 1 tablet ORAL DAILY aspirin, enteric coated 81 mg tab(s) (ASPIRIN, ENTERIC COATED) 81 mg ORAL DAILY pantoprazole DR 20 mg tab(s) (PROTONIX) 20 mg ORAL DAILY levothyroxine 100 mcg tab(s) (SYNTHROID) 100 mcg ORAL DAILY (6 AM) ondansetron orally disintegrating 4 mg tab(s) (ZOFRAN ODT) 4 mg ORAL q 6 H PRN ondansetron (PF) 4 mg injection (ZOFRAN) 4 mg INTRAVENOUS q 6 H PRN oxyCODONE-acetaminophen 5-325 mg 1 tablet (PERCOCET) 1 tablet ORAL q 8 H PRN perflutren lipid microspheres 1.1 mg/mL 1.3 mL injection (DEFINITY) 1.3 mL INTRAVENOUS DIRECTED PRN Objective PHYSICAL EXAM: Physical Exam Performed: Vasc: DP/PT Non-palpable 2/2 +2 edema Neuro: Intact Derm: Right lateral leg ulceration 5.0x7.0x 0.2cm. Mild serousanginous drainage, no malodor, 50% granular, 50%fibrotic base. Jennifer wound erythema, diffuse edema LE, deformity. Right medial wound 3.0x3.0x0.9cm.75% fibrotic base, increased serosang drainage Musc: m/s +4/5 BP 133/67 Pulse 55 Temp (Src) 97.5 (Oral) Resp 18 Ht 5' 4 (1.63m) Wt 206 lb 2.1 oz (93.5kg) SpO2 96% BMI 35.36 kg/(m2). DATA: Diagnostic tests reviewed for today's visit: Most recent labs and imaging results. CBC, Coags, BMP, Mg, Phos Recent Labs 03/21/18 0411 03/20/18 0500 03/19/18 0453 WBC 5.63 -- -- HB 10.8* -- -- HCT 35.8* -- -- PLT 171 -- -- INR 2.3* 2.2* 2.4* NA 137 134* 135* K 4.6 4.2 4.3 CHLOR 97 95* 96* CO2 32* 30 30 BUN 37* 45* 44* CREAT 1.40* 1.65* 1.79* GLUC 88 98 76 CA 8.7 8.3* 8.6 MG 2.0 1.8 1.8 Impression/Recommendations PAD COPD CAD Afib RA Right leg ulcerations Mild Cellulitis of RLE ? Pt seen and examined bedside, ulcerations stable, superficial, cellultis, with diffuse LE edema, increased drainage Follow cultures Follow ID recs for abx recs Xrays neg for OM Offload heels Need compression NPO ordered for midnight, OR tomorrow for ID RLE SIGNATURE: Jessica Yeager DPM PATIENT NAME: Rosa Beltran DATE: March 21, 2018 TIME: 10:08 AM PAGER: Svetlana Gonzalez, RN, RN 03/21/2018 1:38 PM Signed Patient seen today and was told podiatry resident had been in earlier and changed her dressings. Plan for OR debridement tomorrow. Deferred visit for today. Svetlana Gonzalez RN CWOCN Gay Lauren, RN, RN 03/21/2018 3:34 PM Addendum Nursing Progress Note Patient Name: Rosa Beltran Patient Location: [facility]2S-[id number]/[id number] Daily Note: 1243: Spoke to Dr Barry regarding pt being on coumadin and plan for surgery tomorrow. Stated to hold tonights dose and podiatry aware of pts current medications. 1249: message left for dr dempsey regarding pt current INR and being on coumadin. 1330: Spoke to Dr Dempsey regarding current INR. Hold dose tonight and okay for surgery tomorrow. This note was completed by: Gay Lauren RN Previous Version Liza Barry MD 03/21/2018 2:50 PM Addendum DEPARTMENT OF HOSPITAL MEDICINE PROGRESS NOTE SERVICE DATE: 03/21/2018 SERVICE TIME: 2:45 PM Hospital Medicine/Primary Attending: Liza Barry MD NIGHT AND WEEKEND COVERAGE: Nights: Please contact pager [phone]. Subjective INTERVAL HPI: pt seen and examined, comfortable MEDICATIONS: Reviewed Objective PHYSICAL EXAM: BP 113/57 Pulse 64 Temp (Src) 99 (Oral) Resp 16 Ht 5' 4 (1.63m) Wt 206 lb 2.1 oz (93.5kg) SpO2 96% BMI 35.36 kg/(m2). Physical Exam Performed GENERAL: Alert, no distress, cooperative SKIN: Skin color, texture, turgor normal. No rashes or lesions. LUNGS: Lungs clear to auscultation, Good diaphragmatic excursion CARDIAC: Normal S1 and S2; no rubs, murmurs, or gallops ABDOMEN: Abdomen soft, non-tender, BS normal, No masses or organomegaly EXTREMITIES: right lower extremity wrapped, right foot deformed, everted Lines, Drains, and Airways Line Peripheral 03/20/18 1634 Left Forearm 22 Gauge less than 1 day Drain Indwelling Urinary Catheter 03/17/18 1903 Vitale 20 Fr 3 days DATA: Diagnostic tests reviewed for today's visit: Most recent labs and imaging results. Recent Labs 03/21/18 0411 03/20/18 0500 03/19/18 0453 WBC 5.63 -- -- HB 10.8* -- -- PLT 171 -- -- INR 2.3* 2.2* 2.4* NA 137 134* 135* K 4.6 4.2 4.3 CO2 32* 30 30 BUN 37* 45* 44* CREAT 1.40* 1.65* 1.79* WSR -- -- 52* CRP -- -- 6.0* Assessment/Plan Active Problems: Right leg cellulitis Continue empiric abx For IANDD tomorrow with podiatry PVR studies pending AFib, Chronic Rate controlled Continue coumadin ,check inr daily Beta louann dc'ed in view of sinus pauses which have resolved PING Renal function improving slowly Continue to hold diuretics Pressure ulcers: Stage 3 pressure ulcer right lateral ankle, Stage I pressure ulcer ? left heel. Chronic diastolic heart failure Stable, compensated Medication and Non-Pharmacologic VTE Prophylaxis/Anticoagulants Anticoagulant AND Antiplatelet Medications Start Dose Route Frequency Ordered Stop 03/18/18 0900 aspirin, enteric coated 81 mg tab(s) (ASPIRIN, ENTERIC COATED) 81 mg ORAL DAILY 03/17/182017 -- 03/17/182029 warfarin 3 mg tab(s) (COUMADIN) 3 mg ORAL DAILY 03/17/182017 -- 03/17/182029 vte non-pharmacologic prophylaxis contraindicated (ak,ma) 03/17/182029 vte current anticoag therapy (ak,ma) VTE Prophylaxis: VTE prophylaxis appropriate Disposition: Home with [facility] Plan of care discussed with: Patient SIGNATURE: Liza Barry MD PATIENT NAME: Rosa Beltran DATE: March 21, 2018 TIME: 2:43 PM PAGER/CONTACT #: [phone] Previous Version Checo Kay MD, MD 03/21/2018 3:27 PM Signed INFECTIOUS DISEASE PROGRESS NOTE Patient Name: Rosa Beltran INTERVAL HISTORY: No fevers. R leg cultures w PsAG. WBC now normal. ROS checked in details. All qs answered. Patient Active Hospital Problem List: Leg ulcer, right, with fat layer exposed (HCC) (03/17/2018) ASSESSMENT: Right leg ulcers Mild surrounding Cellulitis of RLE PAD Prior cx with 02/15 MSSA and Proteus mirabilis COPD CAD Afib RA ? Plan --Continue Zosyn --Follow wound cx for PsAG MICs --Check ESR and CRP, 52 and 6 respectively. Will discuss w podiatry as XR negative for OM --wound care -- following MEDICATIONS: reviewed. Current hospital medications: docusate sodium 100 mg cap(s) (COLACE) 100 mg ORAL BID PRN piperacillin-tazobactam 3.375 g in dextrose (iso-osmotic) 50 mL (ZOSYN) 3.375 g INTRAVENOUS q 8 H warfarin 3 mg tab(s) (COUMADIN) 3 mg ORAL DAILY acetaminophen 1,000 mg tab(s) (TYLENOL) 1,000 mg ORAL q 6 H PRN gabapentin 300 mg cap(s) (NEURONTIN) 300 mg ORAL BID therapeutic multivitamin with iron (THERAGRAN-M) 1 tablet ORAL DAILY aspirin, enteric coated 81 mg tab(s) (ASPIRIN, ENTERIC COATED) 81 mg ORAL DAILY pantoprazole [address] 20 mg tab(s) (PROTONIX) 20 mg ORAL DAILY levothyroxine 100 mcg tab(s) (SYNTHROID) 100 mcg ORAL DAILY (6 AM) ondansetron orally disintegrating 4 mg tab(s) (ZOFRAN ODT) 4 mg ORAL q 6 H PRN ondansetron (PF) 4 mg injection (ZOFRAN) 4 mg INTRAVENOUS q 6 H PRN oxyCODONE-acetaminophen 5-325 mg 1 tablet (PERCOCET) 1 tablet ORAL q 8 H PRN perflutren lipid microspheres 1.1 mg/mL 1.3 mL injection (DEFINITY) 1.3 mL INTRAVENOUS DIRECTED PRN PHYSICAL EXAM: Vital signs: BP 113/57 Pulse 64 Temp 37.2 ?C (99 ?F) (Oral) Resp 16 Ht 162.6 cm (5' 4) Wt 93.5 kg (206 lb 2.1 oz) SpO2 96% BMI 35.38 kg/m? Temp (24hrs), Av.9 ?C (98.5 ?F), Min:36.4 ?C (97.5 ?F), Max:37.4 ?C (99.3 ?F) General: alert, oriented, NAD Lungs: bilaterally clear to auscultation Heart: regular rate and rhythm Abdomen: soft, non tender, non distended, BS+ Extremities: R leg wound w dressing and redness receeding No rashes No joint inflammation Neck supple Lines ok No CVAT Labs: Recent Labs 03/21/18 0411 03/20/18 0500 03/19/18 0453 WBC 5.63 -- -- HB 10.8* -- -- HCT 35.8* -- -- PLT 171 -- -- INR 2.3* 2.2* 2.4* NA 137 134* 135* K 4.6 4.2 4.3 CHLOR 97 95* 96* CO2 32* 30 30 BUN 37* 45* 44* CREAT 1.40* 1.65* 1.79* Microbiology data: reviewed Imaging data: reviewed Checo Kay MD [phone] 03/21/2018 3:26 PM Timothy Esposito RN, RN 03/22/2018 3:54 AM Addendum Nursing Progress Note Patient Name: Rosa Beltran Patient Location: [place] [id number] Daily Note: 3333 LIP paged r/t pt asking for pain med, pt currently NPO. 0351 Okay with NPO except meds per Dr. Reyes. This note was completed by: Timothy Esposito RN Previous Version Checo Kay MD, MD 03/22/2018 11:50 AM Signed INFECTIOUS DISEASE PROGRESS NOTE Patient Name: Rosa Beltran INTERVAL HISTORY: No fevers. R leg cultures w PsAG. WBC now normal. ROS checked in details. All qs answered. Patient Active Hospital Problem List: Leg ulcer, right, with fat layer exposed (HCC) (03/17/2018) ASSESSMENT: Right leg ulcers Mild surrounding Cellulitis of RLE PAD Prior cx with 02/15 MSSA and Proteus mirabilis COPD CAD Afib RA ? Plan --Continue Zosyn --Follow wound cx for PsAG MICs --Check ESR and CRP, 52 and 6 respectively. --wound care -- following MEDICATIONS: reviewed. Current hospital medications: docusate sodium 100 mg cap(s) (COLACE) 100 mg ORAL BID PRN piperacillin-tazobactam 3.375 g in dextrose (iso-osmotic) 50 mL (ZOSYN) 3.375 g INTRAVENOUS q 8 H warfarin 3 mg tab(s) (COUMADIN) 3 mg ORAL DAILY acetaminophen 1,000 mg tab(s) (TYLENOL) 1,000 mg ORAL q 6 H PRN gabapentin 300 mg cap(s) (NEURONTIN) 300 mg ORAL BID therapeutic multivitamin with iron (THERAGRAN-M) 1 tablet ORAL DAILY aspirin, enteric coated 81 mg tab(s) (ASPIRIN, ENTERIC COATED) 81 mg ORAL DAILY pantoprazole [address] 20 mg tab(s) (PROTONIX) 20 mg ORAL DAILY levothyroxine 100 mcg tab(s) (SYNTHROID) 100 mcg ORAL DAILY (6 AM) ondansetron orally disintegrating 4 mg tab(s) (ZOFRAN ODT) 4 mg ORAL q 6 H PRN ondansetron (PF) 4 mg injection (ZOFRAN) 4 mg INTRAVENOUS q 6 H PRN oxyCODONE-acetaminophen 5-325 mg 1 tablet (PERCOCET) 1 tablet ORAL q 8 H PRN perflutren lipid microspheres 1.1 mg/mL 1.3 mL injection (DEFINITY) 1.3 mL INTRAVENOUS DIRECTED PRN PHYSICAL EXAM: Vital signs: BP 122/68 Pulse 60 Temp 36.4 ?C (97.5 ?F) (Oral) Resp 22 Ht 162.6 cm (5' 4) Wt 93.5 kg (206 lb 2.1 oz) SpO2 95% BMI 35.38 kg/m? Temp (24hrs), Av.9 ?C (98.5 ?F), Min:36.4 ?C (97.5 ?F), Max:37.4 ?C (99.3 ?F) General: alert, oriented, NAD Lungs: bilaterally clear to auscultation Heart: regular rate and rhythm Abdomen: soft, non tender, non distended, BS+ Extremities: R leg wound w dressing and redness receeding No rashes No joint inflammation Neck supple Lines ok No CVAT Labs: Recent Labs 03/22/18 0533 03/21/18 0411 03/20/18 0500 WBC 5.21 5.63 -- HB 10.3* 10.8* -- HCT 34.5* 35.8* -- PLT 176 171 -- INR 1.9* 2.3* 2.2* NA -- 137 134* K -- 4.6 4.2 CHLOR -- 97 95* CO2 -- 32* 30 BUN -- 37* 45* CREAT -- 1.40* 1.65* Microbiology data: reviewed Imaging data: reviewed Checo Kay MD [phone] 03/22/2018 9:30 AM Taran Lawton MD 03/22/2018 11:37 AM Signed ANESTHESIOLOGY DAY OF SURGERY NOTE SERVICE DATE: 03/22/2018 SERVICE TIME: 11:36 AM : 1935 Procedure(s) (LRB): INCISION AND DRAINAGE ABSCESS LEG OR ANKLE (Right) DEBRIDEMENT BONE W/ EPIDERMIS/DERMIS/ SUBCUTANEOUS TISSUE/ MUSCLE/FASCIA FIRST 20 SQ CM OR LESS (Right) Surgeon(s): Chintan Dempsey DPM Estimated body mass index is 35.38 kg/m? as calculated from the following: Height as of this encounter: 162.6 cm (5' 4). Weight as of this encounter: 93.5 kg (206 lb 2.1 oz). Most recent hematocrit and potassium results: Hematocrit 34.5 03/22/2018 Potassium 4.6 03/21/2018 ANES DOS/PREOP NOTE: Vitals: 03/21/18 1604 03/21/18 2037 03/21/18 2319 03/22/18 0915 BP: 147/91 127/78 148/77 122/68 Pulse: 75 66 61 60 Resp: Temp: 36.5 ?C (97.7 ?F) 37.2 ?C (99 ?F) 37.4 ?C (99.3 ?F) 36.4 ?C (97.5 ?F) TempSrc: Axillary Oral Oral Oral SpO2: 94% 95% 97% 95% Weight: Height: ACTIVE PROBLEM LIST Gastroesophageal Reflux Disease Without Esophagitis Chronic Atrial Fibrillation (Hcc) Pure Hypercholesterolemia Hypertension Acquired Hypothyroidism Cad (Coronary Artery Disease) Primary Osteoarthritis Involving Multiple Joints Lymphedema of Both Lower Extremities Mouth Dryness Muscular Weakness Dorsalgia Stented Coronary Artery Gastric Bypass Status for Obesity Bilateral Leg Ulcer (Hcc) Polyneuropathy (Hcc) Cecal Ulcer Respiratory Failure With Hypoxia (Hcc) Heart Failure With Preserved Ejection Fraction (Hcc) Adjustment Disorder With Depressed Mood Constipation Leg Ulcer, Right, With Fat Layer Exposed (Hcc) PAST MEDICAL HISTORY Diagnosis Date - Acquired hypothyroidism - Acute respiratory failure with hypoxia (HCC) 09/30/2017 - Atrial fibrillation (HCC) - CAD (coronary artery disease) Dr. Brenda Awan Hts, Promus element KIMMY LAD 11/20/2012, Stress test 04/2014 inferoapical reversible ischemia,small LVEF 48-50%, LHC 12/2014 L main-normal, LAD widely patent, Cx diffuse mild luminal irregularities with 80%focal stenosis distal, RCA dominant with minimal luminal irregularities. 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 - Pure hypercholesterolemia - Rheumatoid arthritis ([facility]) 2007 - Sleep apnea - Stented coronary artery 12/29/2016 PAST SURGICAL HISTORY Procedure Laterality Date - CC CORONARY STENT 11/20/2012 KIMMY LAD - CC CORONARY STENT 12/20/2014 KIMMY, Cfx - SECTION HX - COLONOSCOPY 06/10/2017 [facility], Nonspecific cecal ulcer - GASTRIC BYPASS HX 1986 - HERNIA REPAIR HX 1987; 1989 - PAST SURGICAL HISTORY OF Right 09/2015 right tibia fracture ORIF - PAST SURGICAL HISTORY OF Right 01/20/2016 Removal of hardware, right tibia - TOTAL KNEE REPLACEMENT Right 2003 [facility] [facility] Left 2004 [facility]. No family history on file. Social History: Social History Substance Use Topics - Smoking status: Passive Smoke Exposure - Never Smoker - Smokeless tobacco: Never Used Comment: smoked for 40 years - Alcohol use No No current facility-administered medications on file prior to encounter. Current Outpatient Prescriptions on File Prior to Encounter: metoprolol tartrate, short acting, (LOPRESSOR) 25 mg tablet Take 0.5 tablets by mouth twice daily. lisinopril (ZESTRIL) 2.5 mg tablet Take 1 tablet by mouth every evening. omeprazole (PRILOSEC) 20 mg capsule Take 1 capsule by mouth once daily. docusate sodium (COLACE) 100 mg capsule Take 1 capsule by mouth once daily as needed for Constipation. furosemide (LASIX) 40 mg tablet Take 2 tablets by mouth twice daily. spironolactone (ALDACTONE) 25 mg tablet Take 1 tablet by mouth twice daily. metOLAzone (ZAROXOLYN) 2.5 mg tablet Take 2 tablets by mouth once daily. sodium hypochlorite (DAKIN'S SOLUTION) 0.125 % soln Dakin's moistened gauze packing every other day to wound for bacterial control. warfarin (COUMADIN) 3 mg tablet Take 1 tablet by mouth daily as directed. Patient is taking 2mg Tuesday and and 3mg other days. (Patient taking differently: Take 3 mg by mouth once daily. ) gabapentin (NEURONTIN) 300 mg capsule Take 1 capsule by mouth twice daily for 180 days. ASCORBIC ACID (VITAMIN C ORAL) Take 1 tablet by mouth twice daily. silver sulfADIAZINE (SILVADENE) 1 % cream Apply to leg wounds as directed. acetaminophen (TYLENOL) 500 mg tablet Take 1,000 mg by mouth every 8 hours as needed. aspirin, enteric coated (ASPIRIN, ENTERIC COATED) 81 mg EC tablet Take 81 mg by mouth every evening. therapeutic multivitamin w/ iron (THERAGRAN-M) 9 mg iron-400 mcg tablet Take 1 tablet by mouth once daily. levothyroxine (LEVOXYL) 100 mcg tablet Take 1 tablet by mouth once daily. Take on empty stomach. For Thyroid. Zinc Sulfate 220 mg tab Take 1 tablet by mouth once daily for 14 days. COMPOUNDED PRESCRIPTION Calcium Alginate 4x4 Dressing, change daily Dx: Blister left leg with infection S80.822A, L08.9; Lymphedema I89.0. Wound dimensions: 4 x 3 cm Current Facility-Administered Medications: docusate sodium 100 mg cap(s) (COLACE) 100 mg ORAL BID PRN Maykelinder Eric 100 mg at 03/21/18 1219 piperacillin-tazobactam 3.375 g in dextrose (iso-osmotic) 50 mL (ZOSYN) 3.375 g INTRAVENOUS q 8 H Checo Kay MD Last Rate: 100 mL/hr at 03/22/18 0520 3.375 g at 03/22/18 0520 warfarin 3 mg tab(s) (COUMADIN) 3 mg ORAL DAILY Dicksonramlula Meenakshisundaram 3 mg at 03/20/18 1631 acetaminophen 1,000 mg tab(s) (TYLENOL) 1,000 mg ORAL q 6 H PRN Dicksonramlula Meenakshisundaram 1,000 mg at 03/22/18 0519 gabapentin 300 mg cap(s) (NEURONTIN) 300 mg ORAL BID Chandramohan Meenakshisundaram 300 mg at 03/22/18 0908 therapeutic multivitamin with iron (THERAGRAN-M) 1 tablet ORAL DAILY Chandramohan Meenakshisundaram 1 tablet at 03/22/18 0908 aspirin, enteric coated 81 mg tab(s) (ASPIRIN, ENTERIC COATED) 81 mg ORAL DAILY Chandramohan Meenakshisundaram 81 mg at 03/21/[address] 20 mg tab(s) (PROTONIX) 20 mg ORAL DAILY Chandramohan Meenakshisundaram 20 mg at 03/22/18 0520 levothyroxine 100 mcg tab(s) (SYNTHROID) 100 mcg ORAL DAILY (6 AM) Chandramohan Meenakshisundaram 100 mcg at 03/22/18 0520 ondansetron orally disintegrating 4 mg tab(s) (ZOFRAN ODT) 4 mg ORAL q 6 H PRN Chandramohan Meenakshisundaram 4 mg at 03/20/18 1015 Or ondansetron (PF) 4 mg injection (ZOFRAN) 4 mg INTRAVENOUS q 6 H PRN Chandramohan Meenakshisundaram 4 mg at 03/22/18 0621 oxyCODONE-acetaminophen 5-325 mg 1 tablet (PERCOCET) 1 tablet ORAL q 8 H PRN Chandramohan Meenakshisundaram perflutren lipid microspheres 1.1 mg/mL 1.3 mL injection (DEFINITY) 1.3 mL INTRAVENOUS DIRECTED PRN Chandramohan Meenakshisundaram Allergies: ALLERGIES No Known Allergies DOS EXAM: Adequate NPO status: Yes Anesthetic risks, benefits, alternatives, personnel and consent discussed: Yes Patient agrees to proceed: Yes Previous Anesthesia: No history of adverse event. Airway Assessment: MP 2; Neck ROM: Full ROM without neurologic symptoms; Airway Evaluation: No significant abnormalities Symptoms of Sleep Apnea: None Dentition: Teeth intact Additional Physical Exam: Lungs: Patient health status unchanged since recent history and physical. See history and physical for exam findings. Cardiac: Patient health status unchanged since recent history and physical. See history and physical for exam findings. Additional Pertinent Findings: N/A Blood Products: Not anticipated for this procedure. Anesthetic Plan: General, Standard ASA Monitors and MAC with Sedation Pain Management Plan: Parenteral or Oral ASA Class: 3 Other Medical Problems: cad,copd I have interviewed and examined the patient. I have reviewed the medical record and/or the pre-anesthesia evaluation, pertinent labs, and test results. Significant changes in the patient's condition since the History and Physical, not otherwise documented in primary service progress notes: No This contains updated information obtained within 48 hours of Surgery/Procedure. SIGNATURE: Taran Lawton MD PATIENT NAME: Rosa Beltran DATE: March 22, 2018 TIME: 11:36 AM CSN: [id number] PROGRESS Observed: 03/13/2018 Status: COMPLETED Source: [facility] 1:06 PM [facility] [place] REPOSITORY HNO ID: [id number] Author: Ty Beckman Service: (none) Author Type: Physician Type: Progress Notes Filed: 03/13/2018 11:23 PM Note Text: Ty Beckman DPM Department of Podiatry [address] [facility] [address] Dept: [phone] Dept Nail Care SUBJECTIVE: Follow up office visit: This 82 year old female presents to clinic c/o painful toenails. Patient states that the nails are especially painful with shoe gear and pressure. Patient states the left 2nd and left 5th toenail are painful. Patient denies claudication type symptoms when walking. Patient has bilateral wounds that is being managed by Wound Center and her next appointment is 03/17/18. Home Health nurse does dressing changes at home. OBJECTIVE: Patient presents to clinic in wheelchair with slippers on Vasc: severe edema is noted to b/l legs with ankit compression wrapped to b/l legs. Neuro: Protective sensation is decreased to the foot and toes when tested with the 5.07 SWM bilateral. Vibratory sensation is decreased at the hallux bilateral. significant neurological defecits. Derm: Inspection and palpation performed. Nails 1-5 b/l are painful, discolored-yellow, thick, crumbly, dystrophic and with subungal debris. ASSESSMENT: (B35.1) Onychomycosis (primary encounter diagnosis) (M79.675) Pain in toe of left foot (M79.674) Pain in toe of right foot PLAN: Toenails 1-5 b/l debrided in length and thickness Continue wound care per [facility] f/u in 3 months Ty Beckman DPM CNOV Observed: 03/13/2018 Status: COMPLETED Source: [facility] 12:40 PM [facility] REPOSITORY Office Visit (PODIWS) ROSA BELTRAN ([id number]) 1935 F Date Time Provider Department 03/13/18 12:40 PM TY BECKMAN PODIWS During your visit today, we recorded the following information about you: Ty Beckman 03/13/2018 11:23 PM Signed Ty Beckman DPM Department of Podiatry [address] [facility] [address] Dept: [phone] Dept Nail Care SUBJECTIVE: Follow up office visit: This 82 year old female presents to clinic c/o painful toenails. Patient states that the nails are especially painful with shoe gear and pressure. Patient states the left 2nd and left 5th toenail are painful. Patient denies claudication type symptoms when walking. Patient has bilateral wounds that is being managed by Wound Center and her next appointment is 03/17/18. Home Health nurse does dressing changes at home. OBJECTIVE: Patient presents to clinic in wheelchair with slippers on Vasc: severe edema is noted to b/l legs with ankit compression wrapped to b/l legs. Neuro: Protective sensation is decreased to the foot and toes when tested with the 5.07 SWM bilateral. Vibratory sensation is decreased at the hallux bilateral. significant neurological defecits. Derm: Inspection and palpation performed. Nails 1-5 b/l are painful, discolored-yellow, thick, crumbly, dystrophic and with subungal debris. ASSESSMENT: (B35.1) Onychomycosis (primary encounter diagnosis) (M79.675) Pain in toe of left foot (M79.674) Pain in toe of right foot PLAN: Toenails 1-5 b/l debrided in length and thickness Continue wound care [facility] f/u in 3 months Ty Beckman DPM Referring Provider: TY BECKMAN [[id number]] Allergies As of Date: 03/13/2018 (No Known Allergies) Date Reviewed: 03/13/2018 Reviewed by: Sharlene Billingsley Ma - Fully Assessed Reason for Visit: nail care [Other] Primary Visit Diagnosis:Onychomycosis [B35.1] Other Visit Diagnoses:Pain in toe of left foot [M79.675] Pain in toe of right foot [M79.674] Prescriptions as of 03/13/2018 Sig: ERGOCALCIFEROL (VITAMIN D2) 5* Take 1 capsule by mouth once * METOPROLOL TARTRATE 25 MG TAB* Take 0.5 tablets by mouth twi* WARFARIN 1 MG TABLET TAKE ONE TABLET BY MOUTH ONCE* LISINOPRIL 2.5 MG TABLET Take 1 tablet by mouth every * OMEPRAZOLE 20 MG CAPSULE,LUIS MIGUEL* Take 1 capsule by mouth once * DOCUSATE SODIUM 100 MG CAPSULE Take 1 capsule by mouth once * FUROSEMIDE 40 MG TABLET Take 2 tablets by mouth twice* SPIRONOLACTONE 25 MG TABLET Take 1 tablet by mouth twice * METOLAZONE 2.5 MG TABLET Take 2 tablets by mouth once * SODIUM HYPOCHLORITE 0.125 % S* Dakin's moistened gauze packi* WARFARIN 3 MG TABLET Take 1 tablet by mouth daily * GABAPENTIN 300 MG CAPSULE Take 1 capsule by mouth twice* VITAMIN C ORAL Take 1 tablet by mouth twice * SILVER SULFADIAZINE 1 % TOPIC* Apply to leg wounds as direct* ZINC SULFATE 220 MG TABLET Take 1 tablet by mouth once d* ACETAMINOPHEN 500 MG TABLET Take 1,000 mg by mouth every * ASPIRIN 81 MG TABLET,DELAYED * Take 81 mg by mouth every jean* WARFARIN 1 MG TABLET Take 1 mg by mouth daily as d* MULTIVITAMIN-IRON 9 MG-FOLIC * Take 1 tablet by mouth once d* LEVOTHYROXINE 100 MCG TABLET Take 1 tablet by mouth once d* COMPOUNDED PRESCRIPTION Calcium Alginate 4x4 Dressing* Problem List As Of Date 03/13/2018 Noted Resolved Gastroesophageal reflux disease without esophag*INVALID FOR* Chronic atrial fibrillation (HCC) [I48.2] INVALID FOR* Priority: B Pure hypercholesterolemia [E78.00] Hypertension [I10] Priority: D Acquired hypothyroidism [E03.9] Priority: F CAD (coronary artery disease) [I25.10] More... 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 More... More... Respiratory failure with hypoxia (HCC) [J96.91] INVALID FOR* Priority: Severe Heart failure with preserved ejection fraction *INVALID FOR* Priority: A More... Requires continuous at home supplemental oxygen*INVALID FOR*01/20/2018 More... Adjustment disorder with depressed mood [F43.21]INVALID FOR* Constipation [K59.00] INVALID FOR* Disposition: Return in about 3 months (around 06/13/2018) for nail care. Follow-up and Disposition History Recorded Encounter Status:Closed by TY BECKMAN DPM on 03/13/18 PROGRESS Observed: 03/08/2018 Status: COMPLETED Source: [facility] 2:00 PM [facility] REPOSITORY HNO ID: [id number] Author: Luis Simons Service: (none) Author Type: Nurse Practitioner Type: Progress Notes Filed: 03/20/2018 2:15 PM Note Text: DATE OF VISIT: 03/08/2018 REASON FOR VISIT: Non-healing lower extremity wound. HISTORY OF PRESENT ILLNESS: Rosa Beltran is a 81 year old female who presents to the [facility] for further evaluation and management of a non-healing leg wound. She has a past medical history significant for atrial fibrillation on Coumadin, coronary artery disease,?COPD, hypertension, dyslipidemia and CHF.?Patient has felt mildly short of breath over the past month. ?Increase with exertion and lying flat. She is on 40 mg of Lasix twice a day. She still is urinating appropriately. She has not had any chest pain or palpitations. ?Fever, chills, or sweats. ?No productive cough. ?No wheezing. Upon taking patients vitals, her SPO2 level was from 76% - 85%. Patient stated she had shortness of breath. She was unable to finish her sentences without catching her breath. The tips of her fingers were cyanotic. Patient was sent to the ER for further evaluation. Tiffanie BARBOSA wheeled patient to the ER. INTERVAL HISTORY: Patient was sent tot he ED during her previous visit due to low oxygenation. She is now on 2 L of oxygen at all times. She denies any breathing difficulty at this time. She is an 81 year old white female with a long-standing history of swelling in her lower extremities secondary to lymphedema. Approximately 2 years ago, she sustained a fracture to her right ankle, requiring surgical intervention. The operative site became infected, and required prolonged treatment and eventually a skin graft for complete wound closure. As a result, the patient's ambulatory capacity has been impaired. Furthermore, she is morbidly obese which limits her ambulation. The patient leads a relatively sedentary lifestyle and requires a walker for ambulation. She spends a great part of her day in a sitting position. She sleeps with the head of the bed elevated. Swelling in her lower extremities has been on-going for many years. The patient has undergone a battery of diagnostic tests. A non-invasive lower extremity arterial study in December 2016 reveals normal- ankle brachial indices, bilaterally. Venous doppler examination on 01/14 reveals incompetence of the great saphenous veins, bilaterally. There is also incompetence of the small saphenous veins, bilaterally and the right accessory saphenous vein. At present, she has three wounds, 2 on the right distal leg and the other is on the left posterior calf. The left leg wound has been present for over a year and was managed with silver alginate, NPWT, Santyl, serial sharp wound debridements, compression therapy using Surepress and compression pumps. Patient's wound cultures over the past several months have grown out Enterobacter cloacae, MRSA, coag-staph aureus, and in January grew out Pseudomonas, managed with oral antibiotics. IIn July of this year, she developed a new wound on the right lateral distal leg, then in July, she experience cellulitis of both legs requiring hospitalization. In the last year, she has been followed by Dr. Jaskaran Chance at the [facility]. It was felt that her home support system was inadequate and that she may not have the resources in her home environment to appropriately care for her needs. In this regard, a geriatric social work professor consultation had been recommended on several occassions, but patient apparently insisted on remaining in her home environment despite that there was thought that is may be less than optimal. The patient is here at the [facility] for a second opinion regarding management of the abovementioned bilateral lower extremity wounds. She offers no other complaints. She denies any fevers, chills, wound-related pain or other related symptoms. 02/10/18 Patient presents for follow-up. There is one wound remaining. Patient has increased drainage (green-tinged). There is significant maceration to the periwound skin. Patient denies any wound purulence, fevers, chills. To date, wounds have been managed with sharp debridement, collagen, compression therapy and nutritional support. She offers no new complaints. The edema in her lower extremities is well-controlled. She denies any fever, chills or other related symptoms. 03/08/18 Patient here for a wound check. She continues to have significant maceration to her right leg wound area. There has been some oozing partly because of increased edema to her lowe extremities. Advised patient to follow-up with her PCP for further edema management. Patient does have a history of CHF, venous incompetency and PAD involving the right lower extremity. His right leg wound is currently managed with collagen, mild compression, sharp debridement, leg elevation as well as nutritional support. She denies fever or chills. PAST MEDICAL HISTORY Diagnosis Date - Acquired hypothyroidism - Acute respiratory failure with hypoxia (HCC) 09/30/2017 - Atrial fibrillation (HCC) - CAD (coronary artery disease) Dr. Brenda Awan Hts, Promus element KIMMY LAD 11/20/2012, Stress test 04/2014 inferoapical reversible ischemia,small LVEF 48- 50%, [facility] 12/2014 L main-normal, LAD widely patent, Cx diffuse mild luminal irregularities with 80%focal stenosis distal, RCA dominant with minimal luminal irregularities. 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 - Pure hypercholesterolemia - Rheumatoid arthritis ([facility]) 2007 - Sleep apnea - Stented coronary artery 12/29/2016 PAST SURGICAL HISTORY Procedure Laterality Date - CC CORONARY STENT 11/20/2012 KIMMY LAD - CC CORONARY STENT 12/20/2014 KIMMY, Cfx - SECTION HX - COLONOSCOPY 06/10/2017 [facility], Nonspecific cecal ulcer - GASTRIC BYPASS HX 1986 - HERNIA REPAIR HX 1987; 1989 - PAST SURGICAL HISTORY OF Right 09/2015 right tibia fracture ORIF - PAST SURGICAL HISTORY OF Right 01/20/2016 Removal of hardware, right tibia - TOTAL KNEE REPLACEMENT Right 2003 [facility] Gen. - TOTAL KNEE REPLACEMENT Left 2004 [facility] Gen. MEDICATIONS ergocalciferol, vitamin D2, (DRISDOL) 50,000 unit capsule Take 1 capsule by mouth once each week. levothyroxine (LEVOXYL) 100 mcg tablet Take 1 tablet by mouth once daily. Take on empty stomach. For Thyroid. gabapentin (NEURONTIN) 300 mg capsule Take 1 capsule by mouth twice daily. metoprolol tartrate, short acting, (LOPRESSOR) 50 mg tablet TAKE ONE TABLET BY MOUTH TWICE DAILY furosemide (LASIX) 40 mg tablet Take 1 tablet by mouth twice daily. COMPOUNDED PRESCRIPTION Calcium Alginate 4x4 Dressing, change daily Dx: Blister left leg with infection S80.822A, L08.9; Lymphedema I89.0. Wound dimensions: 4 x 3 cm acetaminophen (TYLENOL) 500 mg tablet Take 1,000 mg by mouth every 8 hours as needed. aspirin, enteric coated (ASPIRIN, ENTERIC COATED) 81 mg EC tablet Take 81 mg by mouth once daily. warfarin (COUMADIN) 1 mg tablet Take 1 mg by mouth daily as directed. Take 1 tablet (1mg) by mouth once daily. Take with 1 x 3mg tablet to total 4mg by mouth once daily. warfarin (COUMADIN) 3 mg tablet Take 3 mg by mouth daily as directed. Take 1 tablet (3mg) by mouth once daily. Take with 1 x 1mg tablet to total 4mg by mouth once daily. lisinopril (ZESTRIL) 2.5 mg tablet Take 2.5 mg by mouth once daily. omeprazole (PRILOSEC) 20 mg capsule Take 20 mg by mouth once daily. spironolactone (ALDACTONE) 25 mg tablet Take 25 mg by mouth once daily. docusate sodium (COLACE) 100 mg capsule Take 100 mg by mouth once daily as needed. therapeutic multivitamin w/ iron (THERAGRAN-M) 9 mg iron-400 mcg tablet Take 1 tablet by mouth once daily. ALLERGIES No Known Allergies FAMILY HISTORY: Patient's father in his 70s with a history of arthritis. Her mother at the age of 90 with a history of arthritis. SOCIAL HISTORY Patient is a , lives alone, but has a son nearby. She has 6 children. Substance Use Topics - Smoking status: Passive Smoke Exposure - Never Smoker - Smokeless tobacco: Never Used Comment: smoked for 40 years - Alcohol use No REVIEW OF SYSTEM: PAIN ASSESSMENT: Negative for pain, history of chronic pain, or current treatment for a chronic pain condition. GENERAL: No weight loss, malaise or fevers HEENT: Negative for frequent or significant headaches, No changes in hearing or vision, no nose bleeds or other nasal problems NECK: Negative for lumps, goiter, pain and significant neck swelling RESPIRATORY: Negative for cough, hemoptysis, wheezing, positive for shortness of breath CARDIOVASCULAR: Negative for chest pain,palpitations; has chronic leg swelling GI: No nausea, vomiting, or diarrhea : No history of dysuria, frequency or incontinence MUSCULOSKELETAL: Negative for joint pain or swelling, back pain or muscle pain SKIN: As per HPI. Negative for any other lesions, rash, and itching PSYCH: Negative for sleep disturbance, mood disorder and recent psychosocial stressors HEMATOLOGY/LYMPHOLOGY: Negative for prolonged bleeding, bruising easily or swollen nodes ENDOCRINE: Negative for cold or heat intolerance, polyuria, polydipsia and goiter NEURO: No history of headaches, syncope, paralysis, seizures or tremors 03/08/18 1400 BP: 137/62 Pulse: 73 Resp: 16 Temp: 36.8 ?C (97.8 ?F) TempSrc: Oral SpO2: 95% Weight: 88.1 kg (194 lb 4.8 oz) PHYSICAL EXAMINATION: HEENT: PERRLA , sclera non-icteric, EOM intact, mucous membrane moist, pink and w/o lesions Comments: Neck: Supple, no bruit, no masses, trachea midline Comments: Chest: Lungs clear to auscultation, no accessory muscle use for respiration Comments: Heart: Regular rate/rhythm, normal S1,S2, no murmur, rubs or gallops Comments: Abdomen: Soft, non-tender, non-distended, + bowel sounds, no bruit, no organomegaly Comments: Extremity: Dorsalis pedis : Present (Y) Absent Diminished Doppler Posterior Tibialis: Present (Y) Absent Diminished Doppler Capillary Refill: < 3 sec. (Y) > 3 sec. 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 10/14/17 WBC 8.4, Hgb 12.2, Hct 38.5, PLT 211, Glu 91, BUN 24, Cr 0.88, Na 136, K 4.7, Cl 100, Albumin 3.6, Total protein 9.1 11/04/17 Venous Doppler Study Bilateral Lower Extremities IMPRESSION RIGHT SIDE - DEEP VEINS Negative for acute deep vein thrombosis in vessels visualized. Positive for valvular incompetency in the common femoral vein and femoral vein. Lymph node noted, within the groin, measuring 2.75 x 2.71 x .809cm. Cystic structure noted, within the popliteal fossa, measuring 2.17 x 2.67 x 1.49cm. ? RIGHT SIDE - SUPERFICIAL VEINS Positive for valvular incompetency in the great saphenous vein. REFLUX ONLY NOTED AT PROXIMAL THIGH. Vessel becomes tortuous branching from proximal to distal calf. The anterior lateral branch is negative for incompetency. Positive for valvular incompetency in the small saphenous vein. REFLUX ONLY NOTED AT DISTAL CALF. LEFT SIDE - DEEP VEINS Negative for acute deep vein thrombosis in vessels visualized. Positive for valvular incompetency in the femoral vein at the mid thigh. LEFT SIDE - SUPERFICIAL VEINS Positive for valvular incompetency in the great saphenous vein. REFLUX ONLY NOTED AT MID CALF. Negative for valvular incompetency in the small saphenous vein. No previous scans for comparison; however, chronic appearing superficial thrombophlebitis in the great saphenous vein at the distal calf. ? Technologist: Cleo Magdaleno RVT Ordering physician: Luis Simons ? Interpreting physician: Vishal Torres MD, RVBrandi ? 01/24/17 Segmental arterial doppler study bilateral lower extremities Findings: NIMISHA 1.04 to the right and 1.0 to the left. Based upon the findings of this resting non-invasive lower extremity arterial study, arterial perfusion to ankle level appears to be relatively normal bilaterally. Triphasic and biphasic waveforms were noted at ankle level bilaterally. Resting ankle-brachial indices were bilaterally normal. ? 08/01/17 X-Ray 3-View Right Ankle Impression: There is prior open reduction internal fixation of the fibula which appears to be relatively intact allowing for advanced bony osteopenia. There is an irregular appearance of the lateral side distal tibia which is compatible with a prior fracture for which a new fracture on the lateral side is not excluded. The fracture could be potentially be associated with new trauma or potentially infection. Recommend consideration for follow-up study such as MRI or potentially three-phase bone scan. ? Flattened appearance of the arch of the foot with degenerative change of the tarsotarsal joints. ? Diffuse soft tissue swelling. ? Electronically Signed: Kelly Camarena MD at 20:15 EDT Tel , Service support , ? 10/14/17 XR 2 View Tib/Fib (Left) Findings: Left tibia-fibula: Tibial component of the joint prosthesis noted without associated abnormal lucency. No acute fracture or bony destruction. Right tibia and fibula: Plate and screw fixation remote distal fibular fracture. There is also remote tibial fracture with residual posterior angulation. Ghost tracks from previous tibial hardware. Tibial component of the joint prosthesis noted without associated abnormal lucency. No acute fracture or bony destruction. ? Stereotype Finisher: DWIGHT ? Transcribe Date/Time: Oct 14 2017 ?4:02P Dictated by : ZURDO SANTOS MD ? 10/14/17 XR 2 View Tib/Fib (Right) Findings: Left tibia-fibula: Tibial component of the joint prosthesis noted without associated abnormal lucency. No acute fracture or bony destruction. Right tibia and fibula: Plate and screw fixation remote distal fibular fracture. There is also remote tibial fracture with residual posterior angulation. Ghost tracks from previous tibial hardware. Tibial component of the joint prosthesis noted without associated abnormal lucency. No acute fracture or bony destruction. ? Stereotype Finisher: DWIGHT ? Transcribe Date/Time: Oct 14 2017 ?4:02P Dictated by : ZURDO SANTOS MD ? 10/14/17 XR 2 View Tib/Fib (Left) Findings: Left tibia-fibula: Tibial component of the joint prosthesis noted without associated abnormal lucency. No acute fracture or bony destruction. Right tibia and fibula: Plate and screw fixation remote distal fibular fracture. There is also remote tibial fracture with residual posterior angulation. Ghost tracks from previous tibial hardware. Tibial component of the joint prosthesis noted without associated abnormal lucency. No acute fracture or bony destruction. WOUND ASSESSMENT: Wound Number: 1 First Assessed Date: 10/14/17 Pre-existing: YES Location: Leg Orientation: Right, Lateral and Distal Wound Etiology: Venous Depth of Tissue Injury (Non-pressure): Full Thickness Diabetic Wounds:N/A Pressure Injury: N/A Pre-debridement Measurements Initial (First Visit): 3.5 cm length x 4.0 cm width x 0.5 cm depth Pre-debridement Measurements Initial (Current Visit): 6.0 cm length x 5.4 cm width x 1.6 cm depth Post Debridement Measurement (Current): N/A % Healing Rate/#Weeks: - 7.4 % -- Week 20 Wound Bed (Post-debridement): 100% red % of Healthy tissue: Undermining: No Tunneling: No Tendon/bone exposed: NO Wound Edge/Margins: Irregular wound edges and Edge attached to base Periwound Tissue: Mild erythema, Wet (macerated), and Edema Exudate Amount:Moderate Consistency:Serous/Green Odor:Minimal Infection/Critical Colonization Localized s/s: Non-healing and Increased exudate Systemic s/s: None Local/systemic Rx: None Wound Healing Status: Chronic Clinically presenting as: Stalled wound healing Current topical treatment: Collagen Wound Number: 2 First Assessed Date: 10/14/17 Pre-existing: YES Location: Leg Orientation: Right, Medial and Distal Wound Etiology: Surgical Depth of Tissue Injury (Non-pressure): Partial Thickness Diabetic Wounds:N/A Pressure Injury: N/A Pre-Measurements Initial (First Visit): 0.5 cm length x 0.4 cm width x 0.1 cm depth Post Measurement (Current): Epithelialized % Healing Rate/#Weeks: Week 1 -- Healed Wound Bed (Post-debridement): % of Healthy tissue: Undermining: No Tunneling: No Tendon/bone exposed: NO Wound Edge/Margins: Normal, intact, Irregular wound edges and Edge attached to base Periwound Tissue: Normal, intact,uninvolved tissue and Dry,flaky Exudate Amount: None Consistency: None Odor:None Infection/Critical Colonization Localized s/s: None and Edema Systemic s/s: None Local/systemic Rx: None Wound Healing Status: Chronic Clinically presenting as: Healed Current topical treatment: Iodoflex Wound Number: 4 First Assessed Date: 03/08/18 Pre-existing: YES Location: Leg (calf) Orientation: Right anterior ace Wound Etiology: Venous Depth of Tissue Injury (Non-pressure): Full Thickness Diabetic Wounds:N/A Pressure Injury: N/A Pre-Measurements Initial (First Visit): 2.0 cm length x 2.5 cm width x 0.1 cm depth Post Measurement (Current): N/A % Healing Rate/#Weeks: New wound today Wound Bed (Post-debridement): N/A % of Healthy tissue: Undermining: No Tunneling: No Tendon/bone exposed: NO Wound Edge/Margins: Well-defined wound edges and Edge attached to base Periwound Tissue: [employer], dry and intact, No fluctuance, induration or advancing soft tissue necrosis or ischemia Exudate: Minimal Consistency: Serous Odor:None Infection/Critical Colonization: N/A Localized s/s: None Systemic s/s: None Local/systemic Rx: None Wound Healing Status: New Clinically presenting as: Stable Current topical treatment: None Wound Number: 5 First Assessed Date: 03/08/18 Pre-existing: YES Location: Foot Orientation: Right lateral Wound Etiology: Venous Depth of Tissue Injury (Non-pressure): Full Thickness Diabetic Wounds:N/A Pressure Injury: N/A Pre-Measurements Initial (First Visit): 1.5 cm length x 1.0 cm width x 0.1 cm depth Post Measurement (Current): N/A % Healing Rate/#Weeks: New wound today Wound Bed (Post-debridement): N/A % of Healthy tissue: Undermining: No Tunneling: No Tendon/bone exposed: NO Wound Edge/Margins: Well-defined wound edges and Edge attached to base Periwound Tissue: [employer], dry and intact, No fluctuance, induration or advancing soft tissue necrosis or ischemia Exudate: Minimal Consistency: Serous Odor:None Infection/Critical Colonization: N/A Localized s/s: None Systemic s/s: None Local/systemic Rx: None Wound Healing Status: New Clinically presenting as: Stable Current topical treatment: None Wound Number: 3 First Assessed Date: 10/14/17 Pre-existing: YES Location: Leg (calf) Orientation: Left and Posterior Wound Etiology: Venous Depth of Tissue Injury (Non-pressure): Full Thickness Diabetic Wounds:N/A Pressure Injury: N/A Pre-Measurements Initial (First Visit): 1.3 cm length x 1.2 cm width x 0.1 cm depth Post Measurement (Current): Epithelialized % Healing Rate/#Weeks: 100 % -- Week 5 Wound Bed (Post-debridement): 100% [employer] % of Healthy tissue: Undermining: No Tunneling: No Tendon/bone exposed: NO Wound Edge/Margins: Well-defined wound edges and Edge attached to base Periwound Tissue: [employer], dry and intact, No fluctuance, induration or advancing soft tissue necrosis or ischemia Exudate: Nonr Consistency: None Odor:None Infection/Critical Colonization: N/A Localized s/s: None Systemic s/s: None Local/systemic Rx: None Wound Healing Status: Chronic Clinically presenting as: Healed Current topical treatment: Collagen IMPRESSION: 1. Non-healing right and left lower extremity wounds ( #1 and #3) in the setting of chronic venous insufficiency with secondary lymphedema. 2. Recurrent right medial leg wound s/p STSG in the setting of chronic edema. 3. Significant lower extremity edema secondary to underlying chronic venous insufficiency with secondary lymphedema. 4. Multiple risk factors or co-morbidities that may contribute to wound healing difficulties include hypothyroid disease, chronic atrial fibrillation on anticoagulation, coronary artery disease, COPD, dyslipidemia, hypertension, muscle weakness, osteoarthritis, GERD, depression and obesity. 5. Wound cultures positive for Enterobacter cloacae and Staph aureus most likely increased colonization. 6. Very good glucose control based on recent HgbA1c. 7. Zinc insufficiency ( precursor for collagen synthesis. 8. No significant arterial disease based on recent PVRs. 9. No evidence of osteomyelitis based on recent XRs. 10. Valvular incompetency involving the right common femoral vein , right femoral vein, right great saphenous vein, left femoral vein (mid thigh) and left great saphenous vein (mid thigh). TREATMENT PLAN: Debridement Type: Autolytic Enzymatic Mechanical Surgical Sharp (N) Other: Wound Dressing: See Nursing Notes for details. . Topical Rx: Wound # 1Right lateral distal leg: Wounds washed with dakins solution 0.125%. Pat dry. Dakins moistened gauze 0.125% was packed in to the wound bed. Equal parts of hydrocortisone cream 1% and zinc to all excoriated areas. Site covered with dry max, abd pads and kerlix wrap. Tape to secure. 6 ankit wrap applied from behind the toes to 1 below the knee. Change dressings daily. Left lower leg: Moisturized with vitamin AANDD ointment. 6 ankit applied from behind the toes to 1 below the knee. 5. Right anterior ace: (NEW) L: 2.0 cm x W: 2.5 cm x D: 0.1 cm. Equal parts of hydrocortisone cream 1% and zinc to all excoriated areas. Site covered with dry max, 6. Right lateral foot(NEW: L: 1.5 cm x W: 1.0 cm x D: 0.1 cm. Equal parts of hydrocortisone cream 1% and zinc to all excoriated areas. Site covered with dry max, Equal parts of hydrocortisone cream 1% and zinc to all excoriated areas. Area padded to protect with abd's. Systemis Rx: Begin: Doxycycline to prevent reoccurant [id number] mg PO BID x 14 days then 7 days off. Indefinitely CirAids to be ordered for maintenance therapy. Use pneumatic compression pumps twice daily with 40-50 mmhg compression Nutritional Support: MVI, Zinc Supplement and Protein Supplement Patient is instructed to continue a healthy, well-balanced diet for nutritional support for optimal healing. Protein is the most important nutrient for wound healing. Eating adequate amounts of protein allows the body to create new cells and chemicals to heal the wound, and increases the body?s ability to fight infection. Eating high protein foods daily is recommended such as: lean meats, fish, poultry, cheese, milk, yogurt, eggs and legumes. Vitamins and minerals provide a full range of nutrients for wound healing. It can help jump start the body's production of cells and chemicals needed for healing. Vitamins and minerals can be obtained through healthy foods in your diet and by taking a multiple vitamin supplement. Vitamin C is essential for collagen synthesis. Collagen and fibroblasts compose the basis for the structure of a new wound bed. Also, a deficiency of Vitamin C prolongs the healing time and contributes to reduced resistance to infection. Laboratory: We will obtain wound cultures to determine bacterial load. She will be treated accordingly. Wound cultures are collected to assess level of bacterial bio-burden. Excessive bio-burden can result in inflammatory and proliferative phase stagnation as well as compromise of normal wound healing physiology. Bacterial proliferation, biofilm production, critical colonization and the development of resistant organism can lead to wound infection, wound deterioration and devastating tissue loss. Knowing the organism that populated the wound can help direct therapy, particularly anti-microbial dressing choices. Vascular Evaluation: PVRs for both lower extremities to evaluate for arterial insufficiency completed. Pt advised to see Dr. Tavo Mcnair of Vascular Surgery for further evaluation given her underlying PVD to help with wound healing. Follow-up is scheduled in 1 week, sooner with any concerns or worsening symptoms. Luis Simons CNP Charge Capture: [id number] CNOV Observed: 03/08/2018 Status: COMPLETED Source: [facility] 2:00 PM CLINIC OTHER CAMPUS REPOSITORY Office Visit ([facility]) ROSA BELTRAN ([id number]) 1935 F Date Time Provider Department 03/08/18 2:00 PM LUIS SIMONS, (LO[facility]) [facility] During your visit today, we recorded the following information about you: Temperature Pulse Respiration Blood pressure 98.2 degrees 73/minute 16/minute 137/62 Luis Simons APRN.CNP 03/20/2018 2:15 PM Signed DATE OF VISIT: 03/08/2018 REASON FOR VISIT: Non-healing lower extremity wound. HISTORY OF PRESENT ILLNESS: Rosa Beltran is a 81 year old female who presents to the [facility] for further evaluation and management of a non-healing leg wound. She has a past medical history significant for atrial fibrillation on Coumadin, coronary artery disease,?COPD, hypertension, dyslipidemia and CHF.?Patient has felt mildly short of breath over the past month. ?Increase with exertion and lying flat. She is on 40 mg of Lasix twice a day. She still is urinating appropriately. She has not had any chest pain or palpitations. ?Fever, chills, or sweats. ?No productive cough. ?No wheezing. Upon taking patients vitals, her SPO2 level was from 76% - 85%. Patient stated she had shortness of breath. She was unable to finish her sentences without catching her breath. The tips of her fingers were cyanotic. Patient was sent to the ER for further evaluation. Tiffanie BARBOSA wheeled patient to the ER. INTERVAL HISTORY: Patient was sent tot he ED during her previous visit due to low oxygenation. She is now on 2 L of oxygen at all times. She denies any breathing difficulty at this time. She is an 81 year old white female with a long-standing history of swelling in her lower extremities secondary to lymphedema. Approximately 2 years ago, she sustained a fracture to her right ankle, requiring surgical intervention. The operative site became infected, and required prolonged treatment and eventually a skin graft for complete wound closure. As a result, the patient's ambulatory capacity has been impaired. Furthermore, she is morbidly obese which limits her ambulation. The patient leads a relatively sedentary lifestyle and requires a walker for ambulation. She spends a great part of her day in a sitting position. She sleeps with the head of the bed elevated. Swelling in her lower extremities has been on-going for many years. The patient has undergone a battery of diagnostic tests. A non-invasive lower extremity arterial study in December 2016 reveals normal-ankle brachial indices, bilaterally. Venous doppler examination on 01/14 reveals incompetence of the great saphenous veins, bilaterally. There is also incompetence of the small saphenous veins, bilaterally and the right accessory saphenous vein. At present, she has three wounds, 2 on the right distal leg and the other is on the left posterior calf. The left leg wound has been present for over a year and was managed with silver alginate, NPWT, Santyl, serial sharp wound debridements, compression therapy using Surepress and compression pumps. Patient's wound cultures over the past several months have grown out Enterobacter cloacae, MRSA, coag-staph aureus, and in January grew out Pseudomonas, managed with oral antibiotics. IIn July of this year, she developed a new wound on the right lateral distal leg, then in July, she experience cellulitis of both legs requiring hospitalization. In the last year, she has been followed by Dr. Jaskaran Chance at the [facility]. It was felt that her home support system was inadequate and that she may not have the resources in her home environment to appropriately care for her needs. In this regard, a geriatric social work professor consultation had been recommended on several occassions, but patient apparently insisted on remaining in her home environment despite that there was thought that is may be less than optimal. The patient is here at the [facility] for a second opinion regarding management of the abovementioned bilateral lower extremity wounds. She offers no other complaints. She denies any fevers, chills, wound-related pain or other related symptoms. 02/10/18 Patient presents for follow-up. There is one wound remaining. Patient has increased drainage (green-tinged). There is significant maceration to the periwound skin. Patient denies any wound purulence, fevers, chills. To date, wounds have been managed with sharp debridement, collagen, compression therapy and nutritional support. She offers no new complaints. The edema in her lower extremities is well-controlled. She denies any fever, chills or other related symptoms. 03/08/18 Patient here for a wound check. She continues to have significant maceration to her right leg wound area. There has been some oozing partly because of increased edema to her lowe extremities. Advised patient to follow-up with her PCP for further edema management. Patient does have a history of CHF, venous incompetency and PAD involving the right lower extremity. His right leg wound is currently managed with collagen, mild compression, sharp debridement, leg elevation as well as nutritional support. She denies fever or chills. PAST MEDICAL HISTORY Diagnosis Date - Acquired hypothyroidism - Acute respiratory failure with hypoxia ([facility]) 09/30/2017 - Atrial fibrillation ([facility]) - CAD (coronary artery disease) Dr. Brenda Awan Hts, Promus element KIMMY LAD 11/20/2012, Stress test 04/2014 inferoapical reversible ischemia,small LVEF 48-50%, LHC 12/2014 L main-normal, LAD widely patent, Cx diffuse mild luminal irregularities with 80%focal stenosis distal, RCA dominant with minimal luminal irregularities. 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 - Pure hypercholesterolemia - Rheumatoid arthritis ([facility]) 2007 - Sleep apnea - Stented coronary artery 12/29/2016 PAST SURGICAL HISTORY Procedure Laterality Date - CC CORONARY STENT 11/20/2012 KIMMY LAD - CC CORONARY STENT 12/20/2014 KIM[facility], Cfx - SECTION HX - COLONOSCOPY 06/10/2017 [facility], Nonspecific cecal ulcer - GASTRIC BYPASS HX 1986 - HERNIA REPAIR HX 1987; 1989 - PAST SURGICAL HISTORY OF Right 09/2015 right tibia fracture ORIF - PAST SURGICAL HISTORY OF Right 01/20/2016 Removal of hardware, right tibia - TOTAL KNEE REPLACEMENT Right 2003 [facility] Gen. - TOTAL KNEE REPLACEMENT Left 2004 [facility]. MEDICATIONS ergocalciferol, vitamin D2, (DRISDOL) 50,000 unit capsule Take 1 capsule by mouth once each week. levothyroxine (LEVOXYL) 100 mcg tablet Take 1 tablet by mouth once daily. Take on empty stomach. For Thyroid. gabapentin (NEURONTIN) 300 mg capsule Take 1 capsule by mouth twice daily. metoprolol tartrate, short acting, (LOPRESSOR) 50 mg tablet TAKE ONE TABLET BY MOUTH TWICE DAILY furosemide (LASIX) 40 mg tablet Take 1 tablet by mouth twice daily. COMPOUNDED PRESCRIPTION Calcium Alginate 4x4 Dressing, change daily Dx: Blister left leg with infection S80.822A, L08.9; Lymphedema I89.0. Wound dimensions: 4 x 3 cm acetaminophen (TYLENOL) 500 mg tablet Take 1,000 mg by mouth every 8 hours as needed. aspirin, enteric coated (ASPIRIN, ENTERIC COATED) 81 mg EC tablet Take 81 mg by mouth once daily. warfarin (COUMADIN) 1 mg tablet Take 1 mg by mouth daily as directed. Take 1 tablet (1mg) by mouth once daily. Take with 1 x 3mg tablet to total 4mg by mouth once daily. warfarin (COUMADIN) 3 mg tablet Take 3 mg by mouth daily as directed. Take 1 tablet (3mg) by mouth once daily. Take with 1 x 1mg tablet to total 4mg by mouth once daily. lisinopril (ZESTRIL) 2.5 mg tablet Take 2.5 mg by mouth once daily. omeprazole (PRILOSEC) 20 mg capsule Take 20 mg by mouth once daily. spironolactone (ALDACTONE) 25 mg tablet Take 25 mg by mouth once daily. docusate sodium (COLACE) 100 mg capsule Take 100 mg by mouth once daily as needed. therapeutic multivitamin w/ iron (THERAGRAN-M) 9 mg iron-400 mcg tablet Take 1 tablet by mouth once daily. ALLERGIES No Known Allergies FAMILY HISTORY: Patient's father in his 70s with a history of arthritis. Her mother at the age of 90 with a history of arthritis. SOCIAL HISTORY Patient is a , lives alone, but has a son nearby. She has 6 children. Substance Use Topics - Smoking status: Passive Smoke Exposure - Never Smoker - Smokeless tobacco: Never Used Comment: smoked for 40 years - Alcohol use No REVIEW OF SYSTEM: PAIN ASSESSMENT: Negative for pain, history of chronic pain, or current treatment for a chronic pain condition. GENERAL: No weight loss, malaise or fevers HEENT: Negative for frequent or significant headaches, No changes in hearing or vision, no nose bleeds or other nasal problems NECK: Negative for lumps, goiter, pain and significant neck swelling RESPIRATORY: Negative for cough, hemoptysis, wheezing, positive for shortness of breath CARDIOVASCULAR: Negative for chest pain,palpitations; has chronic leg swelling GI: No nausea, vomiting, or diarrhea : No history of dysuria, frequency or incontinence MUSCULOSKELETAL: Negative for joint pain or swelling, back pain or muscle pain SKIN: As per HPI. Negative for any other lesions, rash, and itching PSYCH: Negative for sleep disturbance, mood disorder and recent psychosocial stressors HEMATOLOGY/LYMPHOLOGY: Negative for prolonged bleeding, bruising easily or swollen nodes ENDOCRINE: Negative for cold or heat intolerance, polyuria, polydipsia and goiter NEURO: No history of headaches, syncope, paralysis, seizures or tremors 03/08/18 1400 BP: 137/62 Pulse: 73 Resp: 16 Temp: 36.8 ?C (97.8 ?F) TempSrc: Oral SpO2: 95% Weight: 88.1 kg (194 lb 4.8 oz) PHYSICAL EXAMINATION: HEENT: PERRLA , sclera non-icteric, EOM intact, mucous membrane moist, pink and w/o lesions Comments: Neck: Supple, no bruit, no masses, trachea midline Comments: Chest: Lungs clear to auscultation, no accessory muscle use for respiration Comments: Heart: Regular rate/rhythm, normal S1,S2, no murmur, rubs or gallops Comments: Abdomen: Soft, non-tender, non-distended, + bowel sounds, no bruit, no organomegaly Comments: Extremity: Dorsalis pedis : Present (Y) Absent Diminished Doppler Posterior Tibialis: Present (Y) Absent Diminished Doppler Capillary Refill: < 3 sec. (Y) > 3 sec. 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 10/14/17 WBC 8.4, Hgb 12.2, Hct 38.5, PLT 211, Glu 91, BUN 24, Cr 0.88, Na 136, K 4.7, Cl 100, Albumin 3.6, Total protein 9.1 11/04/17 Venous Doppler Study Bilateral Lower Extremities IMPRESSION RIGHT SIDE - DEEP VEINS Negative for acute deep vein thrombosis in vessels visualized. Positive for valvular incompetency in the common femoral vein and femoral vein. Lymph node noted, within the groin, measuring 2.75 x 2.71 x .809cm. Cystic structure noted, within the popliteal fossa, measuring 2.17 x 2.67 x 1.49cm. ? RIGHT SIDE - SUPERFICIAL VEINS Positive for valvular incompetency in the great saphenous vein. REFLUX ONLY NOTED AT PROXIMAL THIGH. Vessel becomes tortuous branching from proximal to distal calf. The anterior lateral branch is negative for incompetency. Positive for valvular incompetency in the small saphenous vein. REFLUX ONLY NOTED AT DISTAL CALF. LEFT SIDE - DEEP VEINS Negative for acute deep vein thrombosis in vessels visualized. Positive for valvular incompetency in the femoral vein at the mid thigh. LEFT SIDE - SUPERFICIAL VEINS Positive for valvular incompetency in the great saphenous vein. REFLUX ONLY NOTED AT MID CALF. Negative for valvular incompetency in the small saphenous vein. No previous scans for comparison; however, chronic appearing superficial thrombophlebitis in the great saphenous vein at the distal calf. ? Technologist: Cleo Magdaleno RVT Ordering physician: Luis Simons ? Interpreting physician: Vishal Torres MD, RVT ? 01/24/17 Segmental arterial doppler study bilateral lower extremities Findings: NIMISHA 1.04 to the right and 1.0 to the left. Based upon the findings of this resting non-invasive lower extremity arterial study, arterial perfusion to ankle level appears to be relatively normal bilaterally. Triphasic and biphasic waveforms were noted at ankle level bilaterally. Resting ankle- brachial indices were bilaterally normal. ? 08/01/17 X-Ray 3-View Right Ankle Impression: There is prior open reduction internal fixation of the fibula which appears to be relatively intact allowing for advanced bony osteopenia. There is an irregular appearance of the lateral side distal tibia which is compatible with a prior fracture for which a new fracture on the lateral side is not excluded. The fracture could be potentially be associated with new trauma or potentially infection. Recommend consideration for follow- up study such as MRI or potentially three-phase bone scan. ? Flattened appearance of the arch of the foot with degenerative change of the tarsotarsal joints. ? Diffuse soft tissue swelling. ? Electronically Signed: Kelly Camarena MD at 20:15 EDT Tel , Service support , ? 10/14/17 XR 2 View Tib/Fib (Left) Findings: Left tibia-fibula: Tibial component of the joint prosthesis noted without associated abnormal lucency. No acute fracture or bony destruction. Right tibia and fibula: Plate and screw fixation remote distal fibular fracture. There is also remote tibial fracture with residual posterior angulation. Ghost tracks from previous tibial hardware. Tibial component of the joint prosthesis noted without associated abnormal lucency. No acute fracture or bony destruction. ? Stereotype Finisher: DWIGHT ? Transcribe Date/Time: Oct 14 2017 ?4:02P Dictated by : ZURDO SANTOS MD ? 10/14/17 XR 2 View Tib/Fib (Right) Findings: Left tibia-fibula: Tibial component of the joint prosthesis noted without associated abnormal lucency. No acute fracture or bony destruction. Right tibia and fibula: Plate and screw fixation remote distal fibular fracture. There is also remote tibial fracture with residual posterior angulation. Ghost tracks from previous tibial hardware. Tibial component of the joint prosthesis noted without associated abnormal lucency. No acute fracture or bony destruction. ? Stereotype Finisher: DWIGHT ? Transcribe Date/Time: Oct 14 2017 ?4:02P Dictated by : ZURDO SANTOS MD ? 10/14/17 XR 2 View Tib/Fib (Left) Findings: Left tibia-fibula: Tibial component of the joint prosthesis noted without associated abnormal lucency. No acute fracture or bony destruction. Right tibia and fibula: Plate and screw fixation remote distal fibular fracture. There is also remote tibial fracture with residual posterior angulation. Ghost tracks from previous tibial hardware. Tibial component of the joint prosthesis noted without associated abnormal lucency. No acute fracture or bony destruction. WOUND ASSESSMENT: Wound Number: 1 First Assessed Date: 10/14/17 Pre-existing: YES Location: Leg Orientation: Right, Lateral and Distal Wound Etiology: Venous Depth of Tissue Injury (Non-pressure): Full Thickness Diabetic Wounds:N/A Pressure Injury: N/A Pre-debridement Measurements Initial (First Visit): 3.5 cm length x 4.0 cm width x 0.5 cm depth Pre-debridement Measurements Initial (Current Visit): 6.0 cm length x 5.4 cm width x 1.6 cm depth Post Debridement Measurement (Current): N/A % Healing Rate/#Weeks: - 7.4 % -- Week 20 Wound Bed (Post-debridement): 100% red % of Healthy tissue: Undermining: No Tunneling: No Tendon/bone exposed: NO Wound Edge/Margins: Irregular wound edges and Edge attached to base Periwound Tissue: Mild erythema, Wet (macerated), and Edema Exudate Amount:Moderate Consistency:Serous/Green Odor:Minimal Infection/Critical Colonization Localized s/s: Non-healing and Increased exudate Systemic s/s: None Local/systemic Rx: None Wound Healing Status: Chronic Clinically presenting as: Stalled wound healing Current topical treatment: Collagen Wound Number: 2 First Assessed Date: 10/14/17 Pre-existing: YES Location: Leg Orientation: Right, Medial and Distal Wound Etiology: Surgical Depth of Tissue Injury (Non-pressure): Partial Thickness Diabetic Wounds:N/A Pressure Injury: N/A Pre-Measurements Initial (First Visit): 0.5 cm length x 0.4 cm width x 0.1 cm depth Post Measurement (Current): Epithelialized % Healing Rate/#Weeks: Week 1 -- Healed Wound Bed (Post-debridement): % of Healthy tissue: Undermining: No Tunneling: No Tendon/bone exposed: NO Wound Edge/Margins: Normal, intact, Irregular wound edges and Edge attached to base Periwound Tissue: Normal, intact,uninvolved tissue and Dry,flaky Exudate Amount: None Consistency: None Odor:None Infection/Critical Colonization Localized s/s: None and Edema Systemic s/s: None Local/systemic Rx: None Wound Healing Status: Chronic Clinically presenting as: Healed Current topical treatment: Iodoflex Wound Number: 4 First Assessed Date: 03/08/18 Pre-existing: YES Location: Leg (calf) Orientation: Right anterior ace Wound Etiology: Venous Depth of Tissue Injury (Non-pressure): Full Thickness Diabetic Wounds:N/A Pressure Injury: N/A Pre-Measurements Initial (First Visit): 2.0 cm length x 2.5 cm width x 0.1 cm depth Post Measurement (Current): N/A % Healing Rate/#Weeks: New wound today Wound Bed (Post-debridement): N/A % of Healthy tissue: Undermining: No Tunneling: No Tendon/bone exposed: NO Wound Edge/Margins: Well-defined wound edges and Edge attached to base Periwound Tissue: [employer], dry and intact, No fluctuance, induration or advancing soft tissue necrosis or ischemia Exudate: Minimal Consistency: Serous Odor:None Infection/Critical Colonization: N/A Localized s/s: None Systemic s/s: None Local/systemic Rx: None Wound Healing Status: New Clinically presenting as: Stable Current topical treatment: None Wound Number: 5 First Assessed Date: 03/08/18 Pre-existing: YES Location: Foot Orientation: Right lateral Wound Etiology: Venous Depth of Tissue Injury (Non-pressure): Full Thickness Diabetic Wounds:N/A Pressure Injury: N/A Pre-Measurements Initial (First Visit): 1.5 cm length x 1.0 cm width x 0.1 cm depth Post Measurement (Current): N/A % Healing Rate/#Weeks: New wound today Wound Bed (Post-debridement): N/A % of Healthy tissue: Undermining: No Tunneling: No Tendon/bone exposed: NO Wound Edge/Margins: Well-defined wound edges and Edge attached to base Periwound Tissue: [employer], dry and intact, No fluctuance, induration or advancing soft tissue necrosis or ischemia Exudate: Minimal Consistency: Serous Odor:None Infection/Critical Colonization: N/A Localized s/s: None Systemic s/s: None Local/systemic Rx: None Wound Healing Status: New Clinically presenting as: Stable Current topical treatment: None Wound Number: 3 First Assessed Date: 10/14/17 Pre-existing: YES Location: Leg (calf) Orientation: Left and Posterior Wound Etiology: Venous Depth of Tissue Injury (Non-pressure): Full Thickness Diabetic Wounds:N/A Pressure Injury: N/A Pre-Measurements Initial (First Visit): 1.3 cm length x 1.2 cm width x 0.1 cm depth Post Measurement (Current): Epithelialized % Healing Rate/#Weeks: 100 % -- Week 5 Wound Bed (Post-debridement): 100% [employer] % of Healthy tissue: Undermining: No Tunneling: No Tendon/bone exposed: NO Wound Edge/Margins: Well-defined wound edges and Edge attached to base Periwound Tissue: [employer], dry and intact, No fluctuance, induration or advancing soft tissue necrosis or ischemia Exudate: Nonr Consistency: None Odor:None Infection/Critical Colonization: N/A Localized s/s: None Systemic s/s: None Local/systemic Rx: None Wound Healing Status: Chronic Clinically presenting as: Healed Current topical treatment: Collagen IMPRESSION: 1. Non-healing right and left lower extremity wounds ( #1 and #3) in the setting of chronic venous insufficiency with secondary lymphedema. 2. Recurrent right medial leg wound s/p STSG in the setting of chronic edema. 3. Significant lower extremity edema secondary to underlying chronic venous insufficiency with secondary lymphedema. 4. Multiple risk factors or co-morbidities that may contribute to wound healing difficulties include hypothyroid disease, chronic atrial fibrillation on anticoagulation, coronary artery disease, COPD, dyslipidemia, hypertension, muscle weakness, osteoarthritis, GERD, depression and obesity. 5. Wound cultures positive for Enterobacter cloacae and Staph aureus most likely increased colonization. 6. Very good glucose control based on recent HgbA1c. 7. Zinc insufficiency ( precursor for collagen synthesis. 8. No significant arterial disease based on recent PVRs. 9. No evidence of osteomyelitis based on recent XRs. 10. Valvular incompetency involving the right common femoral vein , right femoral vein, right great saphenous vein, left femoral vein (mid thigh) and left great saphenous vein (mid thigh). TREATMENT PLAN: Debridement Type: Autolytic Enzymatic Mechanical Surgical Sharp (N) Other: Wound Dressing: See Nursing Notes for details. . Topical Rx: Wound # 1Right lateral distal leg: Wounds washed with dakins solution 0.125%. Pat dry. Dakins moistened gauze 0.125% was packed in to the wound bed. Equal parts of hydrocortisone cream 1% and zinc to all excoriated areas. Site covered with dry max, abd pads and kerlix wrap. Tape to secure. 6 ankit wrap applied from behind the toes to 1 below the knee. Change dressings daily. Left lower leg: Moisturized with vitamin AANDD ointment. 6 ankit applied from behind the toes to 1 below the knee. 5. Right anterior ace: (NEW) L: 2.0 cm x W: 2.5 cm x D: 0.1 cm. Equal parts of hydrocortisone cream 1% and zinc to all excoriated areas. Site covered with dry max, 6. Right lateral foot(NEW: L: 1.5 cm x W: 1.0 cm x D: 0.1 cm. Equal parts of hydrocortisone cream 1% and zinc to all excoriated areas. Site covered with dry max, Equal parts of hydrocortisone cream 1% and zinc to all excoriated areas. Area padded to protect with abd's. Systemis Rx: Begin: Doxycycline to prevent reoccurant mg PO BID x 14 days then 7 days off. Indefinitely CirAids to be ordered for maintenance therapy. Use pneumatic compression pumps twice daily with 40-50 mmhg compression Nutritional Support: MVI, Zinc Supplement and Protein Supplement Patient is instructed to continue a healthy, well-balanced diet for nutritional support for optimal healing. Protein is the most important nutrient for wound healing. Eating adequate amounts of protein allows the body to create new cells and chemicals to heal the wound, and increases the body?s ability to fight infection. Eating high protein foods daily is recommended such as: lean meats, fish, poultry, cheese, milk, yogurt, eggs and legumes. Vitamins and minerals provide a full range of nutrients for wound healing. It can help jump start the body's production of cells and chemicals needed for healing. Vitamins and minerals can be obtained through healthy foods in your diet and by taking a multiple vitamin supplement. Vitamin C is essential for collagen synthesis. Collagen and fibroblasts compose the basis for the structure of a new wound bed. Also, a deficiency of Vitamin C prolongs the healing time and contributes to reduced resistance to infection. Laboratory: We will obtain wound cultures to determine bacterial load. She will be treated accordingly. Wound cultures are collected to assess level of bacterial bio-burden. Excessive bio-burden can result in inflammatory and proliferative phase stagnation as well as compromise of normal wound healing physiology. Bacterial proliferation, biofilm production, critical colonization and the development of resistant organism can lead to wound infection, wound deterioration and devastating tissue loss. Knowing the organism that populated the wound can help direct therapy, particularly anti-microbial dressing choices. Vascular Evaluation: PVRs for both lower extremities to evaluate for arterial insufficiency completed. Pt advised to see Dr. Tavo Mcnair of Vascular Surgery for further evaluation given her underlying PVD to help with wound healing. Follow-up is scheduled in 1 week, sooner with any concerns or worsening symptoms. Luis Simons CNP Charge Capture: [id number] Tiffanie Humphrey, RN, RN 03/08/2018 2:59 PM Addendum Nursing Note Dx: Venous insufficiency with ulcer with secondary lymphedema See provider note for wound description and measurements Patient has removed compression wraps yesterday at home. Dressing removed with dakins Saline 0.9% solution applied to all wounds In the presence and direction of the provider wound care as written below: Photos taken Right lateral distal leg: Wounds washed with dakins solution 0.125%. Pat dry. Dakins moistened gauze 0.125% was packed in to the wound bed. Equal parts of hydrocortisone cream 1% and zinc to all excoriated areas. Site covered with dry max, abd pads and kerlix wrap. Tape to secure. 6 ankit wrap applied from behind the toes to 1 below the knee. Left lower leg: Moisturized with vitamin AANDD ointment. 6 ankit applied from behind the toes to 1 below the knee. 1. Right lateral distal leg: L: 6.0 cm x W: 5.4 cm x D: 1.6cm 2.2 to 8.0 skin excoriated circumferencially 2. Right medial distal leg: Remains closed. 3. left distal calf: Remains closed. 4. Right anterior distal ace: Closed 5. Right anterior ace: (NEW) L: 2.0 cm x W: 2.5 cm x D: 0.1 cm. Equal parts of hydrocortisone cream 1% and zinc to all excoriated areas. Site covered with dry max, 6. Right lateral foot(NEW: L: 1.5 cm x W: 1.0 cm x D: 0.1 cm Equal parts of hydrocortisone cream 1% and zinc to all excoriated areas. Area padded to protect with abd's. PLAN: Follow up with [facility]len in 1 week Elevate your legs above your heart to decrease your swelling New wound care Begin: Doxycycline to prevent reoccurant infection 100 mg PO BID x 14 days on then 7 days off. Indefinitely Rx: Doxycycline Measurements: Right Calf: 57 cm Right Ankle: 37 cm Left Calf: 50.5 cm Left Ankle: 33.5 cm EDUCATION PER PROVIDER: The patient/family was instructed how to wash the wound(s) with dial soap, rinsing with water, AND patting dry. Visual demonstration on how to apply the dressing. Signs AND symptoms of infection were reviewed: Increased redness, swelling, pain, green, yellow drainage, fever or chills all would need to be evaluated by a Physician. Patient received typed homegoing wound care instructions and has expressed intent to comply. Tiffanie Humphrey, RN, RN 03/08/2018 2:44 PM Signed WOUND CARE INSTRUCTIONS Wound location: Right lower leg multiple wounds - Venous insufficiency bilateral lower legs Please keep dressing clean and dry 1. Wash your hands with soap and water before and after wound care. 2. Gather all supplies needed. 3. Wash wound with Dial soap and water. Pat dry. Moisturize intact skin with vitamin AANDD ointment Apply equal parts of zinc oxide and hydrocortisone cream 1% to excoriated areas 4. Apply dakins 0.125% moistened gauze to the wound base avoiding intact skin 5. Cover with Dry Max and ABD pads and kerlix wrap. Tape to secure 6. Apply 6 ankit wrap from behind the toes to 1 below the knee 7. Change your dressing daily to every other day as needed Left lower leg: Moisturize daily with vitamin AANDD ointment Apply 6 ankit bandage from behind the toes to 1 below the knee Change every day to every other day as needed To give your wound the best chance to heal: - Eat three balanced meals daily focusing on the protein - Control swelling by elevating the extremity above your heart - exercise the extremity - Complete your wound care instructions - Vitamin C 500 mg twice daily - Multiple Vitamin Daily - Drink a protein shake daily - continue home care Report any of the following changes to the Wound Center at [phone] or go to the Emergency Department: ? Fever or chills ? Increased drainage ? Green or yellow drainage ? Foul odor ? Increased pain ? Hardness around the wound ? Redness, warmth or swelling of the surrounding tissue ? Color change to the wound PLAN: Follow up with Marlen in 1 week Elevate your legs above your heart to decrease your swelling New wound care Begin: Doxycycline to prevent reoccurant infection 100 mg PO BID x 14 days on then 7 days off. 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] Peripheral vascular disease (HCC) [I73.9] Prescriptions as of 03/08/2018 Sig: METOPROLOL TARTRATE 25 MG TAB* Take 0.5 tablets by mouth twi* LISINOPRIL 2.5 MG TABLET Take 1 tablet by mouth every * OMEPRAZOLE 20 MG CAPSULE,LUIS MIGUEL* Take 1 capsule by mouth once * DOCUSATE SODIUM 100 MG CAPSULE Take 1 capsule by mouth once * FUROSEMIDE 40 MG TABLET Take 2 tablets by mouth twice* X WARFARIN 1 MG TABLET TAKE ONE TABLET BY MOUTH ONCE* X SPIRONOLACTONE 25 MG TABLET Take 1 tablet by mouth twice * SODIUM HYPOCHLORITE 0.125 % S* Dakin's moistened gauze packi* WARFARIN 3 MG TABLET Take 1 tablet by mouth daily * Patient taking differently: Take 3 mg by mouth once daily* X METOLAZONE 2.5 MG TABLET Take 2 tablets by mouth once * GABAPENTIN 300 MG CAPSULE Take 1 capsule by mouth twice* VITAMIN C ORAL Take 1 tablet by mouth twice * SILVER SULFADIAZINE 1 % TOPIC* Apply to leg wounds as direct* ACETAMINOPHEN 500 MG TABLET Take 1,000 mg by mouth every * ASPIRIN 81 MG TABLET,DELAYED * Take 81 mg by mouth every jean* MULTIVITAMIN-IRON 9 MG-FOLIC * Take 1 tablet by mouth once d* X WARFARIN 1 MG TABLET Take 3 mg by mouth daily as d* X ERGOCALCIFEROL (VITAMIN D2) 5* Take 1 capsule by mouth once * LEVOTHYROXINE 100 MCG TABLET Take 1 tablet by mouth once d* COMPOUNDED PRESCRIPTION Calcium Alginate 4x4 Dressing* ZINC SULFATE 220 MG TABLET Take 1 tablet by mouth once d* Problem List As Of Date 03/08/2018 Noted Resolved Gastroesophageal reflux disease without esophag*INVALID FOR* Chronic atrial fibrillation (HCC) [I48.2] INVALID FOR* Priority: B Pure hypercholesterolemia [E78.00] Hypertension [I10] Priority: D Acquired hypothyroidism [E03.9] Priority: F CAD (coronary artery disease) [I25.10] More... 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 More... More... Respiratory failure with hypoxia (HCC) [J96.91] INVALID FOR* Priority: Severe Heart failure with preserved ejection fraction *INVALID FOR* Priority: A More... Requires continuous at home supplemental oxygen*INVALID FOR*01/20/2018 More... Adjustment disorder with depressed mood [F43.21]INVALID FOR* Constipation [K59.00] INVALID FOR* Other instructions from your clinician: WOUND CARE INSTRUCTIONS Wound location: Right lower leg multiple wounds - Venous insufficiency bilateral lower legs Please keep dressing clean and dry 1. Wash your hands with soap and water before and after wound care. 2. Gather all supplies needed. 3. Wash wound with Dial soap and water. Pat dry. Moisturize intact skin with vitamin AANDD ointment Apply equal parts of zinc oxide and hydrocortisone cream 1% to excoriated areas 4. Apply dakins 0.125% moistened gauze to the wound base avoiding intact skin 5. Cover with Dry Max and ABD pads and kerlix wrap. Tape to secure 6. Apply 6 ankit wrap from behind the toes to 1 below the knee 7. Change your dressing daily to every other day as needed Left lower leg: Moisturize daily with vitamin AANDD ointment Apply 6 ankit bandage from behind the toes to 1 below the knee Change every day to every other day as needed To give your wound the best chance to heal: - Eat three balanced meals daily focusing on the protein - Control swelling by elevating the extremity above your heart - exercise the extremity - Complete your wound care instructions - Vitamin C 500 mg twice daily - Multiple Vitamin Daily - Drink a protein shake daily - continue home care Report any of the following changes to the Wound Center at [phone] or go to the Emergency Department: ? Fever or chills ? Increased drainage ? Green or yellow drainage ? Foul odor ? Increased pain ? Hardness around the wound ? Redness, warmth or swelling of the surrounding tissue ? Color change to the wound PLAN: Follow up with Marlen in 1 week Elevate your legs above your heart to decrease your swelling New wound care Begin: Doxycycline to prevent reoccurant infection 100 mg PO BID x 14 days on then 7 days off. Indefinitely Rx: Doxycycline Luis Simons [employer]OUND SYSTEM[employer] ENGINEER/mjl Visit Notes: >> Tiffanie (Elena) ELENA Humphrey TueMarch 08, 2018 2:17 PM Status: Addendum Nursing Note Dx: Venous insufficiency with ulcer with secondary lymphedema See provider note for wound description and measurements Patient has removed compression wraps yesterday at home. Dressing removed with dakins Saline 0.9% solution applied to all wounds In the presence and direction of the provider wound care as written below: Photos taken Right lateral distal leg: Wounds washed with dakins solution 0.125%. Pat dry. Dakins moistened gauze 0.125% was packed in to the wound bed. Equal parts of hydrocortisone cream 1% and zinc to all excoriated areas. Site covered with dry max, abd pads and kerlix wrap. Tape to secure. 6 ankit wrap applied from behind the toes to 1 below the knee. Left lower leg: Moisturized with vitamin AANDD ointment. 6 ankit applied from behind the toes to 1 below the knee. 1. Right lateral distal leg: L: 6.0 cm x W: 5.4 cm x D: 1.6cm 2.2 to 8.0 skin excoriated circumferencially 2. Right medial distal leg: Remains closed. 3. left distal calf: Remains closed. 4. Right anterior distal ace: Closed 5. Right anterior ace: (NEW) L: 2.0 cm x W: 2.5 cm x D: 0.1 cm. Equal parts of hydrocortisone cream 1% and zinc to all excoriated areas. Site covered with dry max, 6. Right lateral foot(NEW: L: 1.5 cm x W: 1.0 cm x D: 0.1 cm Equal parts of hydrocortisone cream 1% and zinc to all excoriated areas. Area padded to protect with abd's. PLAN: Follow up with Marlen in 1 week Elevate your legs above your heart to decrease your swelling New wound care Begin: Doxycycline to prevent reoccurant infection 100 mg PO BID x 14 days on then 7 days off. Indefinitely Rx: Doxycycline Measurements: Right Calf: 57 cm Right Ankle: 37 cm Left Calf: 50.5 cm Left Ankle: 33.5 cm EDUCATION PER PROVIDER: The patient/family was instructed how to wash the wound(s) with dial soap, rinsing with water, AND patting dry. Visual demonstration on how to apply the dressing. Signs AND symptoms of infection were reviewed: Increased redness, swelling, pain, green, yellow drainage, fever or chills all would need to be evaluated by a Physician. Patient received typed homegoing wound care instructions and has expressed intent to comply. Encounter Status:Closed by LUIS SIMONS on 03/20/18 BASIC METABOLIC PANL Collected: 03/06/2018 Status: F Source: VICTOR 4:07 PM [facility] [place] REPOSITORY TYPE CODE TESTS RESULT OUT OF REFERENCE UNITS RANGE LAB GLU 74-99 mg/dL High Glucose 106 Result Comment: The [place] Diabetes Association (ADA) provides guidance for cutoff values for fasting glucose and random glucose. The ADA defines fasting as no caloric intake for at least 8 hours. Fas ting plasma glucose results between 100 to 125 mg/dL indicate increased risk for diabetes (prediabetes). Fasting plasma glucose results greater than or equal to 126 mg/dL meet the criteria for diagnosis of diabetes. In the absence of unequivocal hyperglycemia, results should be confirmed by repeat testing. In a patient with classic symptoms of hyperglycemia or hyperglycemic crisis, random plasma glucose results greater than or equal to 200 mg/dL meet the criteria for diagnosis of diabetes. Reference: Standards of Medical Care in Diabetes 2016, [place] Diabetes Association. Diabetes Care. 2016.39(Suppl 1). LAB BUN 7-21 mg/dL BUN High 39 LAB CRET 0.58-0.96 mg/dL Creatinine High 1.10 LAB NA 136-144 mmol/L Low Sodium 134 LAB K 3.7-5.1 mmol/L Potassium 4.7 LAB CL 97-105 mmol/L Low Chloride 94 LAB CO2 22-30 mmol/L CO2 29 LAB AGAP 9-18 mmol/L Anion Gap 11 LAB CA 8.5-10.2 mg/dL Calcium, Total 8.6 LAB GFRAA eGFR- Amer. 58 LAB GFRNAA . eGFR-All Other Races 48 Result Comment: eGFR (Estimated GFR) Units of measure: mL/min/1.73 meters squared eGFR is derived from the reexpressed MDRD Study equation using the following parameters: serum creatinine, age, gender and race. The creatinine assay has been calibrated to be traceable to IDMS. An eGFR <60 mL/min/1.73m2 for >3 months is consistent with chronic kidney disease. Refer to KDOQI guidelines for clinical interpretation. In patients with unstable renal function, e.g. those with acute kidney injury, the eGFR may not accurately reflect actual GFR. Performed By: #### BMP #### [facility] [address] [place], [place] [address] PROTIME Collected: 03/06/2018 Status: F Source: VICTOR 4:01 PM [facility] REPOSITORY TYPE CODE TESTS RESULT OUT OF RANGE REFERENCE UNITS LAB PSEC 9.7-13.0 sec High PT Sec 15.0 LAB INR 0.9-1.3 High PT INR 1.5 Result Comment: Vitamin K Antagonist (VKA) Therapeutic Range: INR 2 to 3 (Target INR of 2.5) Note: For patients treated with VKA drugs, such as warfarin, the [place] [employer] 2012 Guideline recommends a therapeutic INR range of 2 to 3 (target INR of 2.5). This recommendation includes high-risk patients with antiphospholipid syndrome with previous arterial or venous thromboembolism, current-generation mechanical or bioprosthetic aortic heart valve replacement. Note: Patients with mechanical aortic valve replacement and additional risk factors for thromboembolic events (atrial fibrillation, previous thromboembolism, LV dysfunction, hypercoagulable conditions) or an older generation mechanical AVR (i.e., ball in-Cage) or any mechanical MVR should have a INR therapeutic range of 2.5 to 3.5 (target INR of 3). Shweta GH, et al. Chest 2012, 141:7S-47S Genevieve RA, et al. [facility] 2017, 70: 252-289 Performed By: #### PT #### [facility] [address] [place], [place] [address] PROGRESS Observed: 03/06/2018 Status: COMPLETED Source: VICTOR 2:50 PM [facility] REPOSITORY HNO ID: [id number] Author: Mani Newman Service: (none) Author Type: Physician Type: Progress Notes Filed: 03/06/2018 3:21 PM Note Text: This note was created using [employer] ([employer]riter. Subjective Rosa Beltran is a 82 year old female was here for follow up. She was admitted again 02/24-02/27 at [facility] for congestive heart failure, pneumonia, hyponatremia, atrial fibrillation, COPD, CAD, venous stasis ulcer. Her medications were unchanged. Her chronic wounds were not better. Her dyspnea was better. She saw Dr. Mills for ENT evaluation and nothing specific was found. She continued to feel choked, which she felt was from dryness. Review of Systems Constitutional: Negative. HENT: Positive for postnasal drip and trouble swallowing. Respiratory: Positive for shortness of breath. Negative for cough, chest tightness and wheezing. Cardiovascular: Positive for leg swelling. Negative for chest pain and palpitations. Gastrointestinal: Negative. Negative for blood in stool. Musculoskeletal: Positive for arthralgias. Skin: Positive for wound. Neurological: Negative for dizziness and light-headedness. Hematological: Does not bruise/bleed easily. Objective BP 98/50 (BP Site: Left Arm, BP Position: Sitting, BP Cuff Size: Regular Adult) Pulse 64 Temp 37.1 ?C (98.7 ?F) (Left Tympanic) Resp 16 Wt 93 kg (205 lb) SpO2 98% BMI 35.19 kg/m? Physical Exam Constitutional: She is oriented to person, place, and time. No distress. HENT: Mouth/Throat: No oropharyngeal exudate. Dry mouth. Eyes: Conjunctivae are normal. Neck: No JVD present. Cardiovascular: Normal heart sounds. Pulmonary/Chest: No respiratory distress. She has rales. Abdominal: Soft. There is no tenderness. Musculoskeletal: She exhibits edema. 2+ bipedal edema. Neurological: She is alert and oriented to person, place, and time. Wheelchair bound. Psychiatric: Her mood appears anxious. Her speech is rapid and/or pressured. Assessment and Plan 1. Heart failure with preserved ejection fraction (HCC) - ICD9: 428.9, ICD10: I50.30 (primary diagnosis) Medications renewed. - METOPROLOL TARTRATE 25 MG TABLET - FUROSEMIDE 40 MG TABLET - SPIRONOLACTONE 25 MG TABLET 2. Chronic respiratory failure with hypoxia (HCC) - ICD9: 518.83, 799.02, ICD10: J96.11 Stable on oxygen. 3. Lymphedema of both lower extremities - ICD9: 457.1, ICD10: I89.0 Medications renewed. - FUROSEMIDE 40 MG TABLET - SPIRONOLACTONE 25 MG TABLET 4. Ulcers of both lower extremities, unspecified ulcer stage ([facility]) - ICD9: 707.10, ICD10: L97.919, L97.929 Per Wound Center. 5. Essential hypertension - ICD9: 401.9, ICD10: I10 - good control - LISINOPRIL 2.5 MG TABLET 6. Chronic atrial fibrillation (HCC) - ICD9: 427.31, ICD10: I48.2 INR today. - WARFARIN 1 MG TABLET 7. Gastroesophageal reflux disease without esophagitis - ICD9: 530.81, ICD10: K21.9 Controlled. - OMEPRAZOLE 20 MG CAPSULE,DELAYED RELEASE 8. Constipation, unspecified constipation type - ICD9: 564.00, ICD10: K59.00 Refilled. - DOCUSATE SODIUM 100 MG CAPSULE During this patient visit I have spent approximately 25 minutes out of 40 in counseling regarding medications and coordinating care and coordinating care. Mani Newman MD CNOV Observed: 03/06/2018 Status: COMPLETED Source: VICTOR 2:20 PM [facility] REPOSITORY Office Visit (INTMWS) ROSA BELTRAN ([id number]) 1935 F Date Time Provider Department 03/06/18 2:20 PM MANI NEWMAN INTMWS During your visit today, we recorded the following information about you: Temperature Pulse Respiration Blood pressure 98.7 degrees 64/minute 16/minute 98/50 Weight 93 kg Mani Newman 03/06/2018 3:21 PM Signed This note was created using [employer] ([employer])riter. Subjective Rosa Beltran is a 82 year old female was here for follow up. She was admitted again 02/24-02/27 at [facility] for congestive heart failure, pneumonia, hyponatremia, atrial fibrillation, COPD, CAD, venous stasis ulcer. Her medications were unchanged. Her chronic wounds were not better. Her dyspnea was better. She saw Dr. Mills for ENT evaluation and nothing specific was found. She continued to feel choked, which she felt was from dryness. Review of Systems Constitutional: Negative. HENT: Positive for postnasal drip and trouble swallowing. Respiratory: Positive for shortness of breath. Negative for cough, chest tightness and wheezing. Cardiovascular: Positive for leg swelling. Negative for chest pain and palpitations. Gastrointestinal: Negative. Negative for blood in stool. Musculoskeletal: Positive for arthralgias. Skin: Positive for wound. Neurological: Negative for dizziness and light-headedness. Hematological: Does not bruise/bleed easily. Objective BP 98/50 (BP Site: Left Arm, BP Position: Sitting, BP Cuff Size: Regular Adult) Pulse 64 Temp 37.1 ?C (98.7 ?F) (Left Tympanic) Resp 16 Wt 93 kg (205 lb) SpO2 98% BMI 35.19 kg/m? Physical Exam Constitutional: She is oriented to person, place, and time. No distress. HENT: Mouth/Throat: No oropharyngeal exudate. Dry mouth. Eyes: Conjunctivae are normal. Neck: No JVD present. Cardiovascular: Normal heart sounds. Pulmonary/Chest: No respiratory distress. She has rales. Abdominal: Soft. There is no tenderness. Musculoskeletal: She exhibits edema. 2+ bipedal edema. Neurological: She is alert and oriented to person, place, and time. Wheelchair bound. Psychiatric: Her mood appears anxious. Her speech is rapid and/or pressured. Assessment and Plan 1. Heart failure with preserved ejection fraction (HCC) - ICD9: 428.9, ICD10: I50.30 (primary diagnosis) Medications renewed. - METOPROLOL TARTRATE 25 MG TABLET - FUROSEMIDE 40 MG TABLET - SPIRONOLACTONE 25 MG TABLET 2. Chronic respiratory failure with hypoxia ([facility]) - ICD9: 518.83, 799.02, ICD10: J96.11 Stable on oxygen. 3. Lymphedema of both lower extremities - ICD9: 457.1, ICD10: I89.0 Medications renewed. - FUROSEMIDE 40 MG TABLET - SPIRONOLACTONE 25 MG TABLET 4. Ulcers of both lower extremities, unspecified ulcer stage ([facility]) - ICD9: 707.10, ICD10: L97.919, L97.929 Per Wound Center. 5. Essential hypertension - ICD9: 401.9, ICD10: I10 - good control - LISINOPRIL 2.5 MG TABLET 6. Chronic atrial fibrillation (HCC) - ICD9: 427.31, ICD10: I48.2 INR today. - WARFARIN 1 MG TABLET 7. Gastroesophageal reflux disease without esophagitis - ICD9: 530.81, ICD10: K21.9 Controlled. - OMEPRAZOLE 20 MG CAPSULE,DELAYED RELEASE 8. Constipation, unspecified constipation type - ICD9: 564.00, ICD10: K59.00 Refilled. - DOCUSATE SODIUM 100 MG CAPSULE During this patient visit I have spent approximately 25 minutes out of 40 in counseling regarding medications and coordinating care and coordinating care. MD Paty Mckenna [facility] H 03/06/2018 3:20 PM Signed See medication list for changes. Referring Provider: MANI NEWMAN [[id number]] Allergies As of Date: 03/06/2018 (No Known Allergies) Date Reviewed: 03/06/2018 Reviewed by: Sheron Lugo LPN - Fully Assessed Reason for Visit: F/U 3 Month [443] Primary Visit Diagnosis:Heart failure with preserved ejection fraction (HCC) [I50.30] Other Visit Diagnoses:Chronic respiratory failure with hypoxia (HCC) [J96.11] Lymphedema of both lower extremities [I89.0] Ulcers of both lower extremities, unspecified ulcer stage (HCC) [L97.919, L97.929] Essential hypertension [I10] Chronic atrial fibrillation (HCC) [I48.2] Gastroesophageal reflux disease without esophagitis [K21.9] Constipation, unspecified constipation type [K59.00] Order(s):metoprolol tartrate, short acting, (LOPRESSOR) 25 mg tabletTake 0.5 tablets by mouth twice daily.Disp: 30 tabletRfl: 5 warfarin (COUMADIN) 1 mg tabletTAKE ONE TABLET BY MOUTH ONCE DAILY OR DIRECTED WITH THE 3MG TABLETSDisp: 90 tabletRfl: 1 lisinopril (ZESTRIL) 2.5 mg tabletTake 1 tablet by mouth every evening.Disp: 30 tabletRfl: 5 omeprazole (PRILOSEC) 20 mg capsuleTake 1 capsule by mouth once daily.Disp: 30 capsuleRfl: 5 docusate sodium (COLACE) 100 mg capsuleTake 1 capsule by mouth once daily as needed for Constipation.Disp: 30 capsuleRfl: 5 furosemide (LASIX) 40 mg tabletTake 2 tablets by mouth twice daily.Disp: 120 tabletRfl: 5 spironolactone (ALDACTONE) 25 mg tabletTake 1 tablet by mouth twice daily.Disp: 60 tabletRfl: 5 Prescriptions as of 03/06/2018 Sig: METOPROLOL TARTRATE 25 MG TAB* Take 0.5 tablets by mouth twi* WARFARIN 1 MG TABLET TAKE ONE TABLET BY MOUTH ONCE* LISINOPRIL 2.5 MG TABLET Take 1 tablet by mouth every * OMEPRAZOLE 20 MG CAPSULE,LUIS MIGUEL* Take 1 capsule by mouth once * DOCUSATE SODIUM 100 MG CAPSULE Take 1 capsule by mouth once * FUROSEMIDE 40 MG TABLET Take 2 tablets by mouth twice* SPIRONOLACTONE 25 MG TABLET Take 1 tablet by mouth twice * METOLAZONE 2.5 MG TABLET Take 2 tablets by mouth once * SODIUM HYPOCHLORITE 0.125 % S* Dakin's moistened gauze packi* WARFARIN 3 MG TABLET Take 1 tablet by mouth daily * GABAPENTIN 300 MG CAPSULE Take 1 capsule by mouth twice* VITAMIN C ORAL Take 1 tablet by mouth twice * SILVER SULFADIAZINE 1 % TOPIC* Apply to leg wounds as direct* ACETAMINOPHEN 500 MG TABLET Take 1,000 mg by mouth every * ASPIRIN 81 MG TABLET,DELAYED * Take 81 mg by mouth every jean* WARFARIN 1 MG TABLET Take 1 mg by mouth daily as d* MULTIVITAMIN-IRON 9 MG-FOLIC * Take 1 tablet by mouth once d* ERGOCALCIFEROL (VITAMIN D2) 5* Take 1 capsule by mouth once * LEVOTHYROXINE 100 MCG TABLET Take 1 tablet by mouth once d* COMPOUNDED PRESCRIPTION Calcium Alginate 4x4 Dressing* ZINC SULFATE 220 MG TABLET Take 1 tablet by mouth once d* Medication notes this encounter LEVOTHYROXINE 100 MCG TABLET >> Sheron Lugo LPN 03/06/2018 2:31 PM >> SHERON LUGO LPN TueMarch 06, 2018 2:31 PM Patient taking 1 tablet once daily. Problem List As Of Date 03/06/2018 Noted Resolved Gastroesophageal reflux disease without esophag*INVALID FOR* Chronic atrial fibrillation (HCC) [I48.2] INVALID FOR* Priority: B Pure hypercholesterolemia [E78.00] Hypertension [I10] Priority: D Acquired hypothyroidism [E03.9] Priority: F CAD (coronary artery disease) [I25.10] More... 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 More... More... Respiratory failure with hypoxia (HCC) [J96.91] INVALID FOR* Priority: Severe Heart failure with preserved ejection fraction *INVALID FOR* Priority: A More... Requires continuous at home supplemental oxygen*INVALID FOR*01/20/2018 More... Adjustment disorder with depressed mood [F43.21]INVALID FOR* Constipation [K59.00] INVALID FOR* Other instructions from your clinician: See medication list for changes. Prescriptions ordered this encounter Disp Refills Start End METOPROLOL TARTRATE 25 MG TABLET 30 t* 5 03/06/2018 Route: ORAL Sig: Take 0.5 tablets by mouth twice daily. WARFARIN 1 MG TABLET 90 t* 1 03/06/2018 Sig: TAKE ONE TABLET BY MOUTH ONCE DAILY OR DIRECTED WITH THE 3MG TABLETS LISINOPRIL 2.5 MG TABLET 30 t* 5 03/06/2018 Route: ORAL Sig: Take 1 tablet by mouth every evening. OMEPRAZOLE 20 MG CAPSULE,DELAYED REL* 30 c* 03/06/2018 Route: ORAL Sig: Take 1 capsule by mouth once daily. DOCUSATE SODIUM 100 MG CAPSULE 30 c* 03/06/2018 Route: ORAL Sig: Take 1 capsule by mouth once daily as needed for Constipation. FUROSEMIDE 40 MG TABLET 120 * 03/06/2018 Route: ORAL Sig: Take 2 tablets by mouth twice daily. SPIRONOLACTONE 25 MG TABLET 60 t* 03/06/2018 Route: ORAL Sig: Take 1 tablet by mouth twice daily. Medications Discontinued During This Encounter metoprolol tartrate, short acting, (* 90 t* 0 01/04/2018 03/06/2018 Route: ORAL Sig: Take 0.5 tablets by mouth twice daily. Disc: Reason for discontinue is not on file. warfarin (COUMADIN) 1 mg tablet 90 t* 1 11/30/2017 03/06/2018 Cmt: Please consider 90 day supplies to promote better adherence Sig: TAKE ONE TABLET BY MOUTH ONCE DAILY OR DIRECTED WITH THE 3MG TABLETS Disc: Reason for discontinue is not on file. lisinopril (ZESTRIL) 2.5 mg tablet 03/06/2018 Class: Historical Med Route: ORAL Sig: Take 2.5 mg by mouth every evening. Disc: Reason for discontinue is not on file. omeprazole (PRILOSEC) 20 mg capsule 03/06/2018 Class: Historical Med Route: ORAL Sig: Take 20 mg by mouth once daily. Disc: Reason for discontinue is not on file. docusate sodium (COLACE) 100 mg caps* 03/06/2018 Class: Historical Med Route: ORAL Sig: Take 100 mg by mouth once daily as needed. Disc: Reason for discontinue is not on file. furosemide (LASIX) 40 mg tablet 180 * 1 02/10/2018 03/06/2018 Class: Med Update Route: ORAL Sig: Take 2 tablets by mouth twice daily. Disc: Reason for discontinue is not on file. spironolactone (ALDACTONE) 25 mg tab* 02/10/2018 03/06/2018 Class: Med Update Route: ORAL Sig: Take 2 tablets by mouth twice daily. Disc: Reason for discontinue is not on file. Disposition: Return in about 3 months (around 06/06/2018). Follow-up and Disposition History Recorded Encounter Status:Closed by MANI NEWMAN MD on 03/06/18 BMP Collected: 02/27/2018 Status: F [facility]: [facility] REPOSITORY TYPE CODE TESTS RESULT OUT OF REFERENCE UNITS RANGE LAB 1547-9 83-110 mg/dL GLUCOSE 99 LAB NA(LOINC) 136-146 mEq/L Low Sodium Level 135 LAB K(LOINC) 3.5-5.1 mEq/L Potassium Level 5.1 LAB CL(LOINC) 98-107 mEq/L Low Chloride 96 LAB CO2(LOINC) 23-31 mEq/L CO2 High 34 LAB EBAL(LOINC mEq/L ) Electrolyte Balance 5.0 LAB BUN(LOINC) 7.0-18.0 mg/dL BUN High 46.4 LAB CRE(LOINC) 0.6-1.2 mg/dL Creatinine High Lvl (s) 1.4 LAB BC(LOINC) 7-27 ratio High BUN/Creatinine 33 Ratio LAB CA(LOINC) 8.4-10.2 mg/dL Calcium Lvl 8.5 Performed By: #### GFR, PRO, BMP #### [address] [address] .GFR Collected: 02/27/2018 Status: F Source: [facility] 5:22 AM [facility] REPOSITORY TYPE CODE TESTS RESULT OUT OF REFERENCE UNITS RANGE LAB GFRAA(LOINC ml/min/1.73 ) sqm GFR 44 [place] Result Comment: GFR Population mean for , Non- Americans Ages 20-29 = 116 mL/min/1.73 sq.m. Ages 30-39 = 107 mL/min/1.73 sq.m. Ages 40-49 = 99 mL/min/1.73 sq.m. Ages 50-59 = 93 mL/min/1.73 sq.m. Ages 60-69 = 85 mL/min/1.73 sq.m. Ages 70+ = 75 mL/min/1.73 sq.m. Chronic Kidney Disease: Less than 60 mL/min/1.73 square meters End Stage Renal Disease: Less than 15 mL/min/1.73 square meters LAB GFRNO(LOINC) ml/min/1.73sqm GFR Non- 37 Result Comment: GFR Population mean for , Non- Americans Ages 20-29 = 116 mL/min/1.73 sq.m. Ages 30-39 = 107 mL/min/1.73 sq.m. Ages 40-49 = 99 mL/min/1.73 sq.m. Ages 50-59 = 93 mL/min/1.73 sq.m. Ages 60-69 = 85 mL/min/1.73 sq.m. Ages 70+ = 75 mL/min/1.73 sq.m. Chronic Kidney Disease: Less than 60 mL/min/1.73 square meters End Stage Renal Disease: Less than 15 mL/min/1.73 square meters Performed By: #### GFR, PRO, BMP #### [address] [address] PRO Collected: 02/27/2018 Status: F Source: [facility] 5:22 AM [facility] REPOSITORY TYPE CODE TESTS RESULT OUT OF REFERENCE UNITS RANGE LAB PT(LOINC) 9.8-13.5 seconds Protime High 18.9 LAB INR(LOINC) 0.9-1.2 ratio PT High International 1.8 Ratio Result Comment: Standard Dose 2.0 - 3.0 High Dose 2.5 - 3.5 The recommended therapeutic range for oral anticoagulant therapy is: LOW RISK: Prophylaxis of venous thrombosis INR: 2.0 - 3.0 Treatment of pulmonary embolism 2.0 - 3.0 Prevention of systemic embolism 2.0 - 3.0 HIGH RISK: Mechanical prosthetic valves 2.5 - 3.5 Performed By: #### GFR, PRO, BMP #### [id number] [place], [place] [address] XR CHEST 2 VIEWS Observed: 02/26/2018 Status: F Source: [employer] 10:16 AM [facility] REPOSITORY ORIGINAL XR CHEST 2 VIEWS CLINICAL STATEMENT: Abnormal breath sounds COMPARISON: 02/24/2018 FINDINGS: Stable heart and mediastinum with mild cardiomegaly and calcification of aorta. There are persistent and essentially unchanged bilateral interstitial and groundglass type of opacities throughout the ashley gs. No discrete consolidation or pleural effusion. Bilateral shoulder chronic rotator cuff tear. IMPRESSION: No significant interval change. Pulmonary edema pattern. Interpreted By: Shawn Wright MD Preliminary Report By: Shawn Wright MD Electronically Signed By: Shawn Wright MD Dictated Date: 02/26/2018 1:44:59 PM Prelim Date: 02/26/2018 1:44:59 PM Sign Date: 02/26/2018 1:45:53 PM .GFR Collected: 02/26/2018 Status: F Source: [employer] 8:35 AM [facility] REPOSITORY TYPE CODE TESTS RESULT OUT OF REFERENCE UNITS RANGE LAB GFRAA(LOINC ml/min/1.73 ) sqm GFR 45 Romanian Result Comment: GFR Population mean for , Non- Americans Ages 20-29 = 116 mL/min/1.73 sq.m. Ages 30-39 = 107 mL/min/1.73 sq.m. Ages 40-49 = 99 mL/min/1.73 sq.m. Ages 50-59 = 93 mL/min/1.73 sq.m. Ages 60-69 = 85 mL/min/1.73 sq.m. Ages 70+ = 75 mL/min/1.73 sq.m. Chronic Kidney Disease: Less than 60 mL/min/1.73 square meters End Stage Renal Disease: Less than 15 mL/min/1.73 square meters LAB GFRNO(LOINC) ml/min/1.73sqm GFR Non- 37 Result Comment: GFR Population mean for , Non- Americans Ages 20-29 = 116 mL/min/1.73 sq.m. Ages 30-39 = 107 mL/min/1.73 sq.m. Ages 40-49 = 99 mL/min/1.73 sq.m. Ages 50-59 = 93 mL/min/1.73 sq.m. Ages 60-69 = 85 mL/min/1.73 sq.m. Ages 70+ = 75 mL/min/1.73 sq.m. Chronic Kidney Disease: Less than 60 mL/min/1.73 square meters End Stage Renal Disease: Less than 15 mL/min/1.73 square meters Performed By: #### PRO, GFR, BMP #### [address] [address] PRO Collected: 02/26/2018 Status: F Source: [employer] 8:35 AM [facility] REPOSITORY TYPE CODE TESTS RESULT OUT OF REFERENCE UNITS RANGE LAB PT(LOINC) 9.8-13.5 seconds Protime High 16.8 LAB INR(LOINC) 0.9-1.2 ratio PT High International 1.6 Ratio Result Comment: Standard Dose 2.0 - 3.0 High Dose 2.5 - 3.5 The recommended therapeutic range for oral anticoagulant therapy is: LOW RISK: Prophylaxis of venous thrombosis INR: 2.0 - 3.0 Treatment of pulmonary embolism 2.0 - 3.0 Prevention of systemic embolism 2.0 - 3.0 HIGH RISK: Mechanical prosthetic valves 2.5 - 3.5 Performed By: #### PRO, GFR, BMP #### [address] [address] BMP Collected: 02/26/2018 Status: F Source: [employer] 8:35 AM [facility] REPOSITORY TYPE CODE TESTS RESULT OUT OF REFERENCE UNITS RANGE LAB 1547-9 83-110 mg/dL GLUCOSE High 124 LAB NA(LOINC) 136-146 mEq/L Low Sodium Level 133 LAB K(LOINC) 3.5-5.1 mEq/L Potassium Level 4.3 LAB CL(LOINC) 98-107 mEq/L Chloride 99 LAB CO2(LOINC) 23-31 mEq/L CO2 30 LAB EBAL(LOINC mEq/L ) Electrolyte Balance 4.0 LAB BUN(LOINC) 7.0-18.0 mg/dL BUN High 40.3 LAB CRE(LOINC) 0.6-1.2 mg/dL Creatinine High Lvl (s) 1.4 LAB BC(LOINC) 7-27 ratio High BUN/Creatinine 29 Ratio LAB CA(LOINC) 8.4-10.2 mg/dL Low Calcium Lvl 8.2 Performed By: #### PRO, GFR, BMP #### [id number] [place], [place] [address] TROP Collected: 02/25/2018 Status: F Source: [facility] 6:26 AM [facility] REPOSITORY TYPE CODE TESTS RESULT OUT OF REFERENCE UNITS RANGE LAB TROP(LOINC) 0.00-0.30 ng/mL Troponin <0.30 Result Comment: Below measuring range >=0.30 Consistent with cardiac damage, increased clinical risk and possibility of myocardial infarction. Serial measurements, clinical history, appropriate symptoms and/or ECG changes may help assess possibility of CO. *Other non-acute coronary syndrome conditions such as CHF, myocarditis, pulmonary emboli, sepsis and cardiac surgery could result in myocardial damage and increased troponin levels. Performed By: #### ANEU, GFR, MG, ADIFF, CBC, PRO, BMP, TROP #### [id number] [place], [place] [address] CBC Collected: 02/25/2018 Status: F Source: [facility] 6:26 AM [facility] REPOSITORY TYPE CODE TESTS RESULT OUT OF REFERENCE UNITS RANGE LAB WBC(LOINC) 4.60-10.80 10 3/mcL High WBC 12.50 LAB RBCCT(LOINC 4.20-5.40 10 6/mcL ) Low RBC 3.67 LAB HGB(LOINC) 12.0-16.0 G/dL Low Hgb 10.5 LAB HCT(LOINC) 37.0-47.0 % Low Hct 31.8 LAB MCV(LOINC) 80.0-94.0 fL MCV 86.4 LAB MCH(LOINC) 27.0-31.2 pg MCH 28.6 LAB MCHC(LOINC) 33.0-37.0 G/dL MCHC 33.1 LAB RDW(LOINC) 11.5-14.5 % High RDW 16.4 LAB PLT(LOINC) 130-400 10 3/mcL Platelet 162 LAB MPV(LOINC) 7.4-10.4 fL MPV 9.0 Performed By: #### ANEU, GFR, MG, ADIFF, CBC, PRO, BMP, TROP #### [address] [address] .AUTO DIFF Collected: 02/25/2018 Status: F Source: [facility] 6:26 AM [facility] REPOSITORY TYPE CODE TESTS RESULT OUT OF REFERENCE UNITS RANGE LAB CONSTANTINE(LOINC) 37.0-80.0 % High Neutrophil % 84.2 LAB LYM(LOINC) 10.0-50.0 % Lymphocyte % 10.5 LAB MON(LOINC) 1.7-13.0 % Monocyte % 5.2 LAB EO(LOINC) 0.0-7.0 % Eosinophil % 0.0 LAB BAS(LOINC) 0.0-2.5 % Basophil % 0.1 LAB ABLYM(LOIN 0.77-3.85 10 3/mcL C) Lymphocyte, 1.30 Absolute LAB ERNIE(LOINC 0.15-1.00 10 3/mcL ) Monocyte, 0.60 Absolute LAB AEOS(LOINC 0.00-0.40 10 3/mcL ) Eosinophil, 0.00 Absolute LAB ABAS(LOINC 0.00-0.19 10 3/mcL ) Basophil, 0.00 Absolute Performed By: #### ANEU, GFR, MG, ADIFF, CBC, PRO, BMP, TROP #### [address] [address] .NEUABS Collected: 02/25/2018 Status: F Source: [facility] 6:26 AM [facility] REPOSITORY TYPE CODE TESTS RESULT OUT OF REFERENCE UNITS RANGE LAB ANEU(LOINC) 2.85-6.16 10 3/mcL High Neutrophil, 10.50 Absolute Performed By: #### ANEU, GFR, MG, ADIFF, CBC, PRO, BMP, TROP #### [address] [address] PRO Collected: 02/25/2018 Status: F Source: [facility] 6:26 AM [facility] REPOSITORY TYPE CODE TESTS RESULT OUT OF REFERENCE UNITS RANGE LAB PT(LOINC) 9.8-13.5 seconds Protime High 19.2 LAB INR(LOINC) 0.9-1.2 ratio PT High International 1.9 Ratio Result Comment: Standard Dose 2.0 - 3.0 High Dose 2.5 - 3.5 The recommended therapeutic range for oral anticoagulant therapy is: LOW RISK: Prophylaxis of venous thrombosis INR: 2.0 - 3.0 Treatment of pulmonary embolism 2.0 - 3.0 Prevention of systemic embolism 2.0 - 3.0 HIGH RISK: Mechanical prosthetic valves 2.5 - 3.5 Performed By: #### ANEU, GFR, MG, ADIFF, CBC, PRO, BMP, TROP #### [address] [address] BMP Collected: 02/25/2018 Status: F Source: [facility] 6:26 AM [facility] REPOSITORY TYPE CODE TESTS RESULT OUT OF REFERENCE UNITS RANGE LAB 1547-9 83-110 mg/dL GLUCOSE 88 LAB NA(LOINC) 136-146 mEq/L Low Sodium Level 133 LAB K(LOINC) 3.5-5.1 mEq/L Potassium Level 3.9 LAB CL(LOINC) 98-107 mEq/L Chloride 99 LAB CO2(LOINC) 23-31 mEq/L CO2 30 LAB EBAL(LOINC mEq/L ) Electrolyte Balance 4.0 LAB BUN(LOINC) 7.0-18.0 mg/dL BUN High 28.0 LAB CRE(LOINC) 0.6-1.2 mg/dL Creatinine Lvl (s) 1.2 LAB BC(LOINC) 7-27 ratio BUN/Creatinine 23 Ratio LAB CA(LOINC) 8.4-10.2 mg/dL Calcium Lvl 8.4 Performed By: #### ANEU, GFR, MG, ADIFF, CBC, PRO, BMP, TROP #### [address] [address] MG Collected: 02/25/2018 Status: F Source: [facility] 6:26 AM [facility] REPOSITORY TYPE CODE TESTS RESULT OUT OF REFERENCE UNITS RANGE LAB MG(LOINC) 1.7-2.5 mg/dL Magnesium Lvl 1.7 Performed By: #### ANEU, GFR, MG, ADIFF, CBC, PRO, BMP, TROP #### [id number] [place], [place] [address] .GFR Collected: 02/25/2018 Status: F Source: [facility] 6:26 AM [facility] REPOSITORY TYPE CODE TESTS RESULT OUT OF REFERENCE UNITS RANGE LAB GFRAA(LOINC ml/min/1.73 ) sqm GFR 52 Romanian Result Comment: GFR Population mean for , Non- Americans Ages 20-29 = 116 mL/min/1.73 sq.m. Ages 30-39 = 107 mL/min/1.73 sq.m. Ages 40-49 = 99 mL/min/1.73 sq.m. Ages 50-59 = 93 mL/min/1.73 sq.m. Ages 60-69 = 85 mL/min/1.73 sq.m. Ages 70+ = 75 mL/min/1.73 sq.m. Chronic Kidney Disease: Less than 60 mL/min/1.73 square meters End Stage Renal Disease: Less than 15 mL/min/1.73 square meters LAB GFRNO(LOINC) ml/min/1.73sqm GFR Non- 43 Result Comment: GFR Population mean for , Non- Americans Ages 20-29 = 116 mL/min/1.73 sq.m. Ages 30-39 = 107 mL/min/1.73 sq.m. Ages 40-49 = 99 mL/min/1.73 sq.m. Ages 50-59 = 93 mL/min/1.73 sq.m. Ages 60-69 = 85 mL/min/1.73 sq.m. Ages 70+ = 75 mL/min/1.73 sq.m. Chronic Kidney Disease: Less than 60 mL/min/1.73 square meters End Stage Renal Disease: Less than 15 mL/min/1.73 square meters Performed By: #### ANEU, GFR, MG, ADIFF, CBC, PRO, BMP, TROP #### [id number] [place], [place] [address] UA Collected: 02/24/2018 Status: F Source: [facility] 6:42 PM [facility]POS[facility] TYPE CODE TESTS RESULT OUT OF REFERENCE UNITS RANGE LAB SPCUA(LOIN C) UA Specimen Type Clean Catch LAB CLRUA(LOIN C) UA Color YELLOW LAB APPUA(LOIN C) UA Appear CLEAR LAB SGUA(LOINC ) UA Spec Grav 1.025 LAB GLUA(LOINC mg/dL ) UA Glucose NEGATIVE LAB BILUA(LOIN C) UA Bili NEGATIVE LAB KETUA(LOIN mg/dL C) UA Ketones TRACE LAB BLDUA(LOIN C) UA Blood NEGATIVE LAB PHUA(LOINC ) UA pH 6.0 LAB PROUA(LOIN Negative mg/dL C) UA Protein 30 LAB UROUA(LOIN E.U./dL C) UA Urobilinogen 0.2 LAB NITUA(LOIN C) UA Nitrite NEGATIVE LAB LEUUA(LOIN C) UA Leuk Est NEGATIVE Performed By: #### UAMICAO, UA #### [id number] [place], [place] [address] .URINALYSIS MICROSCOPIC Collected: 02/24/2018 Status: F Source: [facility] [employer]) 6:42 [facility] REPOSITORY TYPE CODE TESTS RESULT OUT OF RANGE REFERENCE UNITS LAB WBCUA(LOIN None Seen /hpf C) UA WBC None Seen LAB RBCUA(LOIN None Seen /hpf C) UA RBC None Seen LAB EPIUA(LOIN None Seen /hpf C) UA Squam Epithelial None Seen LAB TEPUA(LOIN /hpf C) UA Unknown Transitional 0-5 Epithelial Performed By: #### UAMICOBDULIO, UA #### [address] [address] Observed: 02/24/2018 Status: F Source: [facility] 6:42 [facility] REPOSITORY . MICRO - Microbiology PROCEDURE: Urine Culture [*1] SOURCE: Urine, Clean Catch BODY SITE: COLLECTED DATE/TIME: 02/24/2018 18:42 EDT RECEIVED DATE/TIME: 02/25/2018 17:22 EDT START DATE/TIME: 02/25/2018 17:22 EDT FREE TEXT SOURCE: FINAL REPORTS Final Report [] Verified Date/Time/Personnel: 02/27/2018 08:41 EDT No growth at 48 hours. PRELIMINARY REPORTS Preliminary Report [] Verified Date/Time/Personnel: 02/26/2018 11:06 EDT No growth to date Performing Locations *1: This test was performed at: [facility], [address] [place] [address], [facility] , [facility] Performed By: #### CUR #### [address] [address] ABG Collected: 02/24/2018 Status: F Source: [facility] 6:40 PM [facility] REPOSITORY Order Comment: On room air TYPE CODE TESTS RESULT OUT OF REFERENCE UNITS RANGE LAB PH(LOINC) 7.35-7.45 High pH 7.46 LAB PCO2(LOINC) 35.0-45.0 mmHg pCO2 38.7 LAB PO2(LOINC) 80.0-100.0 mmHg High pO2 112.0 LAB HCO3(LOINC) 22.0-26.0 mmol/L High HCO3 27.5 LAB TCO2(LOINC) 19-24 mmol/L High CO2 Totl 29 LAB BE(LOINC) -2.4-2.3 mmol/L High Base Excess 4.0 LAB O2SAT(LOINC 95-98 % ) High O2 Sat 99 Performed By: #### ABG #### [id number] [place], [place] [address] XR CHEST 1 VIEW Observed: 02/24/2018 Status: F Source: [facility] 6:34 PM [facility] REPOSITORY ORIGINAL XR CHEST 1 VIEW CLINICAL STATEMENT: SOB/cough/fever. No additional clinical history provided. COMPARISON: 01/25/2018 FINDINGS: The heart is enlarged. Atherosclerosis is noted of the thoracic aorta. There is vascular congestion/pulmonary edema, more prominent than previous exam. No appreciable pneumothorax or pleural effusion is identified. Hazy opacities of the lung bases may reflect infiltrate or atelectasis. Degenerative changes are noted of the shoulders and spine. IMPRESSION: Findings reflect congestive heart failure with likely pulmonary edema, mildly progressed from previous exam. Bibasilar airspace disease and/or atelectasis. I have personally reviewed the images of this examination and agree with the resident's findings and interpretation Interpreted By: Kuldeep Arredondo MD Preliminary Report By: Flaco Sarkar DO Electronically Signed By: Kuldeep Arredondo MD Dictated Date: 02/24/2018 6:39:31 PM Prelim Date: 02/24/2018 6:41:09 PM Sign Date: 02/24/2018 7:10:07 PM LAC Collected: 02/24/2018 Status: F Source: [facility] 6:10 PM [facility] REPOSITORY TYPE CODE TESTS RESULT OUT OF REFERENCE UNITS RANGE LAB LAC(LOINC) 0.5-2.2 mmol/L Lactic Acid 1.9 Lvl Performed By: #### LAC, PRO #### [facility] [address] [place], [place] [address] Observed: 02/24/2018 Status: F Source: [facility] 6:10 PM [facility] REPOSITORY . MICRO - Microbiology PROCEDURE: Blood Culture (bacterial) [*1] SOURCE: Blood BODY SITE: COLLECTED DATE/TIME: 02/24/2018 18:10 EDT RECEIVED DATE/TIME: 02/25/2018 17:18 EDT START DATE/TIME: 02/25/2018 17:18 EDT FREE TEXT SOURCE: FINAL REPORTS Final Report [] Verified Date/Time/Personnel: 03/02/2018 17:59 EDT Blood Culture: No Growth at 5 days. PRELIMINARY REPORTS Preliminary Report [] Verified Date/Time/Personnel: 02/25/2018 17:59 EDT Culture has been received in lab and is no growth to date. Routine cultures are held for 5 days. Performing Locations *1: This test was performed at: [address], [address] [place] [address] Performed By: #### CBL #### [address] [address] CBC Collected: 02/24/2018 Status: F Source: [facility] 6:03 [facility] REPOSITORY TYPE CODE TESTS RESULT OUT OF REFERENCE UNITS RANGE LAB WBC(LOINC) 4.60-10.80 10 3/mcL High WBC 20.80 LAB RBCCT(LOINC 4.20-5.40 10 6/mcL ) RBC 4.54 LAB HGB(LOINC) 12.0-16.0 G/dL Hgb 12.6 LAB HCT(LOINC) 37.0-47.0 % Hct 39.3 LAB MCV(LOINC) 80.0-94.0 fL MCV 86.5 LAB MCH(LOINC) 27.0-31.2 pg MCH 27.8 LAB MCHC(LOINC) 33.0-37.0 G/dL Low MCHC 32.2 LAB RDW(LOINC) 11.5-14.5 % High RDW 16.9 LAB PLT(LOINC) 130-400 10 3/mcL Platelet 210 LAB MPV(LOINC) 7.4-10.4 fL MPV 9.2 Performed By: #### TROP, PBNP, ANEU, GFR, CBC, ADIFF, CMP #### [id number] [place], [place] [address] TROP Collected: 02/24/2018 Status: F Source: [facility] 6:03 [facility] REPOSITORY TYPE CODE TESTS RESULT OUT OF REFERENCE UNITS RANGE LAB TROP(LOINC) 0.00-0.30 ng/mL Troponin <0.30 Result Comment: Below measuring range >=0.30 Consistent with cardiac damage, increased clinical risk and possibility of myocardial infarction. Serial measurements, clinical history, appropriate symptoms and/or ECG changes may help assess possibility of CO. *Other non-acute coronary syndrome conditions such as CHF, myocarditis, pulmonary emboli, sepsis and cardiac surgery could result in myocardial damage and increased troponin levels. Performed By: #### TROP, PBNP, ANEU, GFR, CBC, ADIFF, CMP #### [id number] [place], [place] [address] CMP Collected: 02/24/2018 Status: F Source: [facility] 6:03 [facility] REPOSITORY TYPE CODE TESTS RESULT OUT OF REFERENCE UNITS RANGE LAB 1547-9 83-110 mg/dL GLUCOSE 104 LAB NA(LOINC) 136-146 mEq/L Low Sodium Level 133 LAB K(LOINC) 3.5-5.1 mEq/L Potassium Level 4.0 LAB CL(LOINC) 98-107 mEq/L Chloride 98 LAB CO2(LOINC) 23-31 mEq/L CO2 28 LAB EBAL(LOINC mEq/L ) Electrolyte Balance 7.0 LAB BUN(LOINC) 7.0-18.0 mg/dL BUN High 24.4 LAB CRE(LOINC) 0.6-1.2 mg/dL Creatinine Lvl (s) 0.8 LAB BC(LOINC) 7-27 ratio High BUN/Creatinine 30 Ratio LAB CA(LOINC) 8.4-10.2 mg/dL Calcium Lvl 9.3 LAB PROT(LOINC 6.0-8.3 G/dL ) Total High Protein 8.9 LAB ALB(LOINC) 3.4-4.8 G/dL Albumin Level 3.7 LAB GLB(LOINC) G/dL Globulin 5.2 LAB AG(LOINC) 1.1-2.5 ratio Low A/G Ratio 0.7 LAB BILT(LOINC 0.2-1.0 mg/dL ) Bili Total High 1.2 LAB AP(LOINC) 40-135 IU/L Alk Phos 80 LAB AST(LOINC) 10-40 IU/L AST/SGOT 25 LAB ALT(LOINC) 10-35 IU/L ALT/SGPT 10 Performed By: #### TROP, PBNP, ANEU, GFR, CBC, ADIFF, CMP #### [address] [address] .GFR Collected: 02/24/2018 Status: F Source: [facility] 6:03 PM [facility]POSITORY TYPE CODE TESTS RESULT OUT OF REFERENCE UNITS RANGE LAB GFRAA(LOINC ml/min/1.73 ) sqm GFR 83 Romanian Result Comment: GFR Population mean for , Non- Americans Ages 20-29 = 116 mL/min/1.73 sq.m. Ages 30-39 = 107 mL/min/1.73 sq.m. Ages 40-49 = 99 mL/min/1.73 sq.m. Ages 50-59 = 93 mL/min/1.73 sq.m. Ages 60-69 = 85 mL/min/1.73 sq.m. Ages 70+ = 75 mL/min/1.73 sq.m. Chronic Kidney Disease: Less than 60 mL/min/1.73 square meters End Stage Renal Disease: Less than 15 mL/min/1.73 square meters LAB GFRNO(LOINC) ml/min/1.73sqm GFR Non- >60 Result Comment: GFR Population mean for , Non- Americans Ages 20-29 = 116 mL/min/1.73 sq.m. Ages 30-39 = 107 mL/min/1.73 sq.m. Ages 40-49 = 99 mL/min/1.73 sq.m. Ages 50-59 = 93 mL/min/1.73 sq.m. Ages 60-69 = 85 mL/min/1.73 sq.m. Ages 70+ = 75 mL/min/1.73 sq.m. Chronic Kidney Disease: Less than 60 mL/min/1.73 square meters End Stage Renal Disease: Less than 15 mL/min/1.73 square meters Performed By: #### TROP, PBNP, ANEU, GFR, CBC, ADIFF, CMP #### [address] [address] PBNP Collected: 02/24/2018 Status: F Source: [facility] 6:03 [facility] REPOSITORY TYPE CODE TESTS RESULT OUT OF REFERENCE UNITS RANGE LAB PBNP(LOINC) 5.0-300.0 pg/mL High N-Terminal 5465.0 proBNP Result Comment: In the presence of acute dyspnea, CHF likely if: Age <50 years: >450 pg/mL Age 50-75 years: >900 pg/mL Age >75 years: >1800 pg/mL Performed By: #### TROP, PBNP, ANEU, GFR, CBC, ADIFF, CMP #### [address] [address] .AUTO DIFF Collected: 02/24/2018 Status: F Source: [facility] 6:[address] [place] [place] [address] REPOSITORY TYPE CODE TESTS RESULT OUT OF REFERENCE UNITS RANGE LAB CONSTANTINE(LOINC) 37.0-80.0 % High Neutrophil % 90.9 LAB LYM(LOINC) 10.0-50.0 % Low Lymphocyte % 6.2 LAB MON(LOINC) 1.7-13.0 % Monocyte % 2.8 LAB EO(LOINC) 0.0-7.0 % Eosinophil % 0.0 LAB BAS(LOINC) 0.0-2.5 % Basophil % 0.1 LAB ABLYM(LOIN 0.77-3.85 10 3/mcL C) Lymphocyte, 1.30 Absolute LAB ERNIE(LOINC 0.15-1.00 10 3/mcL ) Monocyte, 0.60 Absolute LAB AEOS(LOINC 0.00-0.40 10 3/mcL ) Eosinophil, 0.00 Absolute LAB ABAS(LOINC 0.00-0.19 10 3/mcL ) Basophil, 0.00 Absolute Performed By: #### TROP, PBNP, ANEU, GFR, CBC, ADIFF, CMP #### [address] [address] .NEUABS Collected: 02/24/2018 Status: F Source: [facility] 6:03 [facility] REPOSITORY TYPE CODE TESTS RESULT OUT OF REFERENCE UNITS RANGE LAB ANEU(LOINC) 2.85-6.16 10 3/mcL High Neutrophil, 18.90 Absolute Performed By: #### TROP, PBNP, ANEU, GFR, CBC, ADIFF, CMP #### [id number] [place], [place] [address] PRO Collected: 02/24/2018 Status: F Source: [facility] 6:03 [facility] REPOSITORY TYPE CODE TESTS RESULT OUT OF REFERENCE UNITS RANGE LAB PT(LOINC) 9.8-13.5 seconds Protime High 19.4 LAB INR(LOINC) 0.9-1.2 ratio PT High International 1.9 Ratio Result Comment: Standard Dose 2.0 - 3.0 High Dose 2.5 - 3.5 The recommended therapeutic range for oral anticoagulant therapy is: LOW RISK: Prophylaxis of venous thrombosis INR: 2.0 - 3.0 Treatment of pulmonary embolism 2.0 - 3.0 Prevention of systemic embolism 2.0 - 3.0 HIGH RISK: Mechanical prosthetic valves 2.5 - 3.5 Performed By: #### LAC, PRO #### [address] [address] Observed: 02/24/2018 Status: F Source: [facility] 6:03 [facility] REPOSITORY . MICRO - Microbiology PROCEDURE: Rapid Influenza A+B Screen w Cult if Ind [*1] SOURCE: Nasopharyngeal BODY SITE: Nasopharynx COLLECTED DATE/TIME: 02/24/2018 18:03 EDT RECEIVED DATE/TIME: 02/24/2018 18:07 EDT START DATE/TIME: 02/24/2018 18:07 EDT FREE TEXT SOURCE: FINAL REPORTS Final Report [] Verified Date/Time/Personnel: 02/24/2018 18:45 EDT Specimen is negative for the presence of influenza A antigen. . Specimen is negative for the presence of influenza B antigen. . Inadequate specimen collection, improper sample handling and/or low levels of viral shedding may yield a false-negative result. . The optimal specimen type for the Rapid Flu test is a nasopharyngeal wash/aspirate or nasopharyngeal swab. All negative rapid tests for Flu A and Flu B will be confirmed with a Respiratory Id Panel by PCR. . Assay method employs immunofluorescence technology. Performing Locations *1: This test was performed at: [id number] [place], [place], [address] Performed By: #### RFLU #### [address] [address] Observed: 02/24/2018 Status: F Source: [facility] 6:03 PM [facility] REPOSITORY . MICRO - Microbiology PROCEDURE: Blood Culture (bacterial) [*1] SOURCE: Blood BODY SITE: COLLECTED DATE/TIME: 02/24/2018 18:03 EDT RECEIVED DATE/TIME: 02/25/2018 17:18 EDT START DATE/TIME: 02/25/2018 17:18 EDT FREE TEXT SOURCE: FINAL REPORTS Final Report [] Verified Date/Time/Personnel: 03/02/2018 17:59 EDT Blood Culture: No Growth at 5 days. PRELIMINARY REPORTS Preliminary Report [] Verified Date/Time/Personnel: 02/25/2018 17:59 EDT Culture has been received in lab and is no growth to date. Routine cultures are held for 5 days. Performing Locations *1: This test was performed at: [address], [id number] [place] [address] Performed By: #### CBL #### [address] [address] RESPID Collected: 02/24/2018 Status: F Source: [facility] 5:52 PM [facility] REPOSITORY Order Comment: Order added by [id number] TYPE CODE TESTS RESULT OUT OF REFERENCE UNITS RANGE LAB RESADENO( Not Detected LOINC) Adenovirus Not Detected LAB COVHKU1(L Not Detected OINC) Coronavirus HKU1 Not Detected LAB COVNL63(L Not Detected OINC) Coronavirus NL63 Not Detected LAB VjE126I(L Not Detected OINC) Coronavirus 229E Not Detected LAB COVOC43(L Not Detected OINC) Coronavirus OC43 Not Detected LAB HMV(LOINC Not Detected ) Human Metapneumovirus Not Detected LAB INFA(LOIN Not Detected C) Influenza A Not Detected LAB INFAB(MONI Not Detected NC) Influenza B Not Detected LAB PARAFLU1( Not Detected LOINC) Parainfluenza 1 Not Detected LAB PARAFLU2( Not Detected LOINC) Parainfluenza 2 Not Detected LAB PARAFLU3( Not Detected LOINC) Parainfluenza 3 Not Detected LAB PARAFLU4( Not Detected LOINC) Parainfluenza 4 Not Detected LAB RHINO(MONI Not Detected NC) Rhinovirus/Enterovir us Not Detected LAB RESRSV(LO Not Detected INC) Respiratory Syncytial Virus Not Detected LAB RESMYCO(L Not Detected OINC) Mycoplasma pneumoniae Not Detected LAB RESCHLAM( Not Detected LOINC) Chlamydophila pneumoniae Not Detected LAB RESBORD(L Not Detected OINC) Bordetella Pertussis Not Detected LAB RESBPAR(L Not Detected OINC) Bordetella Parapertussis Not Detected Performed By: #### RESPID #### [address] [address] PROGRESS Observed: 02/17/2018 Status: COMPLETED Source: [facility] 12[facility]30 [facility] REPOSITORY HNO ID: [id number] Author: Ty Mills Service: (none) Author Type: Physician Type: Progress Notes Filed: 02/17/2018 12:32 PM Note Text: Subjective HPI Rosa Beltran is a 82 year old female who presents with all tubal issues. Patient is seen in consultation for Dr. Newman Patient complains of sores and dryness in her nose and mouth. Patient does have an ill fitting lower denture.. Patient also claims of crickets in her head. Patient denies any other otologic symptoms. Patient does complain of some vague dizziness but actually is in a wheelchair. ROS General Weight loss: No Fatigue: No Night sweats:No Cardiac Chest pain:No Fast heart rate:No Swelling in the feet:No Respiratory Short of breath:No Cough:No Wheezing:No Gastrointestinal Nausea:No Vomiting:No Indigestion:No Past no history family history social history reviewed Objective Physical Exam PHYSICAL EXAM: There were no vitals taken for this visit. General: Patient is awake, alert, NAD. Voice is normal. Skin: normal Eyes: Extraocular motion and Gaze is normal. Ears: Right external auditory canal is normal. Cerumen and skin bilateral TMJ: normal. Right tympanic membranes normal. Left external auditory canal is normal. Left tympanic membrane normal. Nose: Septum is normal. Dryness with scabbing in the nose Turbinates are normal. Nasopharynx:normal Oral Cavity/Oropharynx: Lips normal Dentition normal edentulous with a slight irritation the lower gum female fitting denture Tongue normal. Tonsils normal. Palate and uvula normal. Pharynx posterior normal Hypopharynx: Base of tongue normal Pyriform sinus normal. Larynx: Vocal cords normal. Epiglottis normal. Post cricoid normal. Salivary glands: Parotid normal. Submandibular and sublingual normal. Thyroid: normal. Lymphatic/Neck: Lymph nodes normal. Neurologic: Facial nerve normal. ASSESSMENT/PLAN: 1. Tinnitus, objective, bilateral - ICD9: 388.32, ICD10: H93.13 (primary diagnosis) 2. Chronic infective otitis externa, bilateral - ICD9: 380.16, ICD10: H60.393 3. Chronic rhinitis - ICD9: 472.0, ICD10: J31.0 Neosporin to nose follow-up as needed Ty Mills MD Findings will be communicated to the referring physician via mail or electronic medical record. CNOV Observed: 02/17/2018 Status: COMPLETED Source: [facility] 11:45 AM [facility] REPOSITORY Office Visit (OTOLMM) ROSA BELTRAN ([id number]) 1935 F Date Time Provider Department 02/17/18 11:45 AM [facility] OTOLMM During your visit today, we recorded the following information about you: Ty Mills MD 02/17/2018 12:32 PM Signed Subjective HPI Rosa Desai Devin is a 82 year old female who presents with all tubal issues. Patient is seen in consultation for Dr. Newman Patient complains of sores and dryness in her nose and mouth. Patient does have an ill fitting lower denture.. Patient also claims of crickets in her head. Patient denies any other otologic symptoms. Patient does complain of some vague dizziness but actually is in a wheelchair. ROS General Weight loss: No Fatigue: No Night sweats:No Cardiac Chest pain:No Fast heart rate:No Swelling in the feet:No Respiratory Short of breath:No Cough:No Wheezing:No Gastrointestinal Nausea:No Vomiting:No Indigestion:No Past no history family history social history reviewed Objective Physical Exam PHYSICAL EXAM: There were no vitals taken for this visit. General: Patient is awake, alert, NAD. Voice is normal. Skin: normal Eyes: Extraocular motion and Gaze is normal. Ears: Right external auditory canal is normal. Cerumen and skin bilateral TMJ: normal. Right tympanic membranes normal. Left external auditory canal is normal. Left tympanic membrane normal. Nose: Septum is normal. Dryness with scabbing in the nose Turbinates are normal. Nasopharynx:normal Oral Cavity/Oropharynx: Lips normal Dentition normal edentulous with a slight irritation the lower gum female fitting denture Tongue normal. Tonsils normal. Palate and uvula normal. Pharynx posterior normal Hypopharynx: Base of tongue normal Pyriform sinus normal. Larynx: Vocal cords normal. Epiglottis normal. Post cricoid normal. Salivary glands: Parotid normal. Submandibular and sublingual normal. Thyroid: normal. Lymphatic/Neck: Lymph nodes normal. Neurologic: Facial nerve normal. ASSESSMENT/PLAN: 1. Tinnitus, objective, bilateral - ICD9: 388.32, ICD10: H93.13 (primary diagnosis) 2. Chronic infective otitis externa, bilateral - ICD9: 380.16, ICD10: H60.393 3. Chronic rhinitis - ICD9: 472.0, ICD10: J31.0 Neosporin to nose follow-up as needed Ty Mills MD Findings will be communicated to the referring physician via mail or electronic medical record. Referring Provider: MANI NEWMAN [[id number]] Allergies As of Date: 02/17/2018 (No Known Allergies) Date Reviewed: 02/17/2018 Reviewed by: Ty Mills - Fully Assessed Reason for Visit: Throat Problem [109] Cmt: throat closes up is not able to swallow right. some sore spots in mouth and jaw Sinus Problem [99] Cmt: ears pop, congestion . tinnitus On o2 dizzy [Other] Cmt: ref for ENT exam Reason For Visit History Recorded Primary Visit Diagnosis:Tinnitus, objective, bilateral [H93.13] Other Visit Diagnoses:Chronic infective otitis externa, bilateral [H60.393] Chronic rhinitis [J31.0] Prescriptions as of 02/17/2018 Sig: METOLAZONE 2.5 MG TABLET Take 2 tablets by mouth once * SODIUM HYPOCHLORITE 0.125 % S* Dakin's moistened gauze packi* SPIRONOLACTONE 25 MG TABLET Take 2 tablets by mouth twice* FUROSEMIDE 40 MG TABLET Take 2 tablets by mouth twice* WARFARIN 3 MG TABLET Take 1 tablet by mouth daily * GABAPENTIN 300 MG CAPSULE Take 1 capsule by mouth twice* METOPROLOL TARTRATE 25 MG TAB* Take 0.5 tablets by mouth twi* VITAMIN C ORAL Take 1 tablet by mouth twice * WARFARIN 1 MG TABLET TAKE ONE TABLET BY MOUTH ONCE* SILVER SULFADIAZINE 1 % TOPIC* Apply to leg wounds as direct* ACETAMINOPHEN 500 MG TABLET Take 1,000 mg by mouth every * ASPIRIN 81 MG TABLET,DELAYED * Take 81 mg by mouth every jean* WARFARIN 1 MG TABLET Take 1 mg by mouth daily as d* LISINOPRIL 2.5 MG TABLET Take 2.5 mg by mouth every ev* OMEPRAZOLE 20 MG CAPSULE,LUIS MIGUEL* Take 20 mg by mouth once oliver* DOCUSATE SODIUM 100 MG CAPSULE Take 100 mg by mouth once yuly* MULTIVITAMIN-IRON 9 MG-FOLIC * Take 1 tablet by mouth once d* ERGOCALCIFEROL (VITAMIN D2) 5* Take 1 capsule by mouth once * LEVOTHYROXINE 100 MCG TABLET Take 1 tablet by mouth once d* COMPOUNDED PRESCRIPTION Calcium Alginate 4x4 Dressing* ZINC SULFATE 220 MG TABLET Take 1 tablet by mouth once d* Medication notes this encounter LEVOTHYROXINE 100 MCG TABLET >> Jabari Maier Ma 02/17/2018 11:55 AM >> JABARI MAIER MA TueFeb 17, 2018 11:55 AM Takes twice daily Problem List As Of Date 02/17/2018 Noted Resolved Gastroesophageal reflux disease without esophag*INVALID FOR* Chronic atrial fibrillation (HCC) [I48.2] INVALID FOR* Priority: B Pure hypercholesterolemia [E78.00] Hypertension [I10] Priority: D Acquired hypothyroidism [E03.9] Priority: F CAD (coronary artery disease) [I25.10] More... 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 More... More... Respiratory failure with hypoxia (HCC) [J96.91] INVALID FOR* Priority: Severe Heart failure with preserved ejection fraction *INVALID FOR* Priority: A More... Requires continuous at home supplemental oxygen*INVALID FOR*01/20/2018 More... Adjustment disorder with depressed mood [F43.21]INVALID FOR* Follow-up and Disposition History Recorded Encounter Status:Closed by TY MILLS MD on 02/17/18 PROGRESS Observed: 02/14/2018 Status: COMPLETED Source: [facility] 3:47 PM CLINIC OTHER CAMPUS REPOSITORY O ID: [id number] Author: Chintan Dempsey DPM Service: (none) Author Type: Physician Type: Progress Notes Filed: 02/14/2018 3:49 PM Note Text: Problem list reviewed. CHIEF COMPLAINT: Venous stasis ulcer of right lower leg with edema HISTORY OF PRESENT ILLNESS: Patient presents with venous stasis ulcer of right lower leg has edema BL venous insuficiency has been an issue for 6 months pain is burning 04/09 denies injury denies trauma Denies N/V/F/C/D/SOB/CP/LP Tried wound care Referred by Luis Benavides CURRENT MEDICATIONS: Medications List Reviewed (02/13/18 8:10:09 AM EST) Warfarin Sodium Oral Tablet 1 MG (01/02/2018) Vitamin D (Ergocalciferol) Oral Capsule 17927 UNIT (12/24/2017) Spironolactone Oral Tablet 25 MG (11/30/2017) Omeprazole Oral Capsule Delayed Release 20 MG (11/30/2017) MetOLazone Oral Tablet 2.5 MG (02/10/2018) Gabapentin Oral Capsule 300 MG (02/08/2018) Levothyroxine Sodium Oral Tablet 100 MCG (02/05/2018) Furosemide Oral Tablet 40 MG (01/30/2018) Lisinopril Oral Tablet 2.5 MG (01/02/2018) Metoprolol Tartrate Oral Tablet 25 MG (12/24/2017) Medication list reviewed. ALLERGIES: No Known Allergies Confirmed - 02/13/18 8:06:49 AM EST Allergy list reviewed. PAST MEDICAL HISTORY: Podiatry History remarkable for Leg or Foot Ulcers. The patient has a past medical history of Arthritis, Depression, Hypertension, Thyroid Disorder. sleep apnea acid reflux COPD SURGICAL HISTORY: gastric bypass b/l knee replacement tibia repaired hernia coronary stents HOSPITALIZATIONS: various SOCIAL HISTORY: Smoking Status: Never smoker; Last Reviewed: 02/13/2018; Second hand smoke exposure; Tobacco User: No Alcohol use: non-drinker No drug use Social History Reviewed updated (02/13/2018 8:03:43 AM EST) FAMILY HISTORY: Denial of any knowledge of significant family history Denial of any knowledge of significant family history, Denial of any knowledge of significant family history Family History Reviewed updated (02/13/2018 8:03:44 AM EST) REVIEW OF SYSTEMS: Cardiovascular: Admits to calf claudication, edema of feet or legs, cold hands or feet. Gastrointestinal: Admits to recurrent acid reflux. Neurologic Admits to muscle weakness, poor balance, shooting pains in the toes or feet. Psychologic: Admits to depression. Review of systems otherwise negative PHYSICAL EXAMINATION: Vascular Exam: BL Foot DP / PT pulses +2/4 CFT less than 3 seconds to digits, skin temp warm to warm from proximal to distal BL Foot Measurements: Measurements: Right Calf: 54.5?cm Right Ankle: ?32.5?cm Left Calf: ?39.5?cm Left Ankle: ?31.3?cm Dermatologic Exam: #1 Right lateral distal leg:?L: 3.8 cm x W: 5?cm x D: 0..8?cm post noted .9cm #2 Right medial distal leg:??Remains closed. #3 left distal calf: ??Remains closed. 4. Right anterior distal ace:??L: 1.0 cm x W: 1.0 cm x D: 0.1 cm Neurologic Exam: Comments/Other Findings: Vibratory sensations intact BL, Protective sensations intact BL tested with 5.07 monofilament at all 10 sites bl foot , vibratory sensations intact BL , and light, sharp, and temperature sensations intact bl after testing Muscle Testing of the Extensors, Flexors, Evertors (peroneals) , and Invertors ( posterior tibialis) BL leg shows 5/5 testing and normal strength noted. Babinski Test is normal BL foot Orthopedic Exam: Additional Orthopedic Findings: edema noted bl legs DIAGNOSIS: Right foot pain Left foot pain Peripheral vascular disease Edema of left foot Edema of right foot Ulcer of right lower extremity, limited to breakdown of skin Venous stasis ulcer of right lower extremity PLAN AND TREATMENT: Foot and Ankle and Lower extremity Exam and Evaluation carried out with a treatment plan reviewed with the patient and findings discussed with patient including alternatives, benefits, complications and risks. cont the sure press I recommended doing bi lay ergrat Excisional debridement carried out of the wound with sharp debridement past the dermis into subcutaneous level with use of curette and 15 scalpel blade and we then flushed out the wound with wound wash sterile saline. It is noted that all wounds sizes were measured in CM (centimeters), right leg veous stasis ulce rlegs recommended compression recommended wraps recommended surepress bl will get approved for graft plan march 08 kaur will do 730 am will plan OR then I want her to follow up 2 weeks after but she can see Marlen because she has hard time coming on Tuesday I explained this was perfectly okay Right foot pain 729.5 M79.671 AND Left foot pain 729.5 M79.672 AND Peripheral vascular disease 443.9 I73.9 AND Edema of left foot 782.3 R60.0 AND Edema of right foot 782.3 R60.0 AND Ulcer of right lower extremity, limited to breakdown of skin 707.10 L97.911 AND Venous stasis ulcer of right lower extremity 454.0 I83.019 CNOV Observed: 02/14/2018 Status: COMPLETED Source: [facility] 8:00 AM CLINIC OTHER CAMPUS REPOSITORY Office Visit ([facility]) ROSA BELTRAN ([id number]) 1935 F Date Time Provider Department 02/14/18 8:00 AM [facility] During your visit today, we recorded the following information about you: Temperature Pulse Respiration Blood pressure 98.1 degrees 60/minute 19/minute 180/76 Tracy Alas MA, MA 02/14/2018 9:05 AM Addendum Nursing Note Dx: Venous insufficiency with ulcer with secondary lymphedema See provider note for wound description and measurements Patient has removed compression wraps yesterday at home. Dressing removed with dakins Saline 0.9% solution applied to all wounds In the presence and direction of the provider wound care as written below: Photos taken Wound vac offered and patient declines Vitamin AANDamp;D ointment liberally applied to both lower legs Right lateral distal leg: SQ debridement. Wound flushed with 10 cc of saline solution. Pat dry. Dakins moistened gauze 0.25% was packed in to the wound bed. Site covered with dry max, abd pads and kerlix wrap. Tape to secure. Surpress applied from behind the toes to 1ANDquot; below the knee.SurePress: Foot is warm and pink before and after application. It was demonstrated to the patient how to check for adequate circulation. Patient voices understanding. If circulation becomes compromised by a change in color, increased pain, numbness or tingling to the area, the patient knows to remove the compression and elevate the leg above the heart. Done per PIPPA BARBOSA. #1 Right lateral distal leg: L: 3.8 cm x W: 5.0cm x D: 1.0cm #2 Right medial distal leg: Remains closed. #3 left distal calf: Remains closed. 4. Right anterior distal ace: L: 1.0 cm x W: 1.0 cm x D: 0.1 cm Zinc oxide applied to the wound. Site covered with dry max, abd pad and kerlix wrap. surepress wrap was applied from behind the toes to 1ANDquot; below the knee. Taped to secure. PLAN: Graft done in the OR by Dr. Dempsey on March 01 or March 08. His office will contact her. Patient instructions faxed to [facility] EDUCATION PER PROVIDER: The patient/family was instructed how to wash the wound(s) with dial soap, rinsing with water, ANDamp; patting dry. Visual demonstration on how to apply the dressing. Signs ANDamp; symptoms of infection were reviewed: Increased redness, swelling, pain, green, yellow drainage, fever or chills all would need to be evaluated by a Physician. Patient received typed homegoing wound care instructions and has expressed intent to comply. Tracy Alas MA, MA 02/14/2018 8:30 AM Addendum WOUND CARE INSTRUCTIONS Wound location: Right lower leg wound. Venous insufficiency bilateral lower legs Please keep dressing clean and dry 1. Wash your hands with soap and water before and after wound care. 2. Gather all supplies needed. 3. Wash wound with Dial soap and water. Pat dry. Moisturize with vitamin AANDamp;D ointment 4. Apply dakins 0.25% moistened gauze to the wound base. 5. Cover with Dry Max and ABD pads 6. Apply surepress wrap from behind the toes to 1ANDquot; below each knee 7. Change your dressing EVERY other day Left lower leg: Moisturize with vitamin AANDamp;D ointment Apply surepress from behind the toes to 1ANDquot; below the knee Tape to secure Change every other day You may purchase cast covers to wear to allow you to shower To give your wound the best chance to heal: - Eat three balanced meals daily focusing on the protein - Control swelling by elevating the extremity above your heart - exercise the extremity - Complete your wound care instructions - Vitamin C 500 mg twice daily - Multiple Vitamin Daily - Drink a protein shake daily - continue home care Report any of the following changes to the Wound Center at [phone] or go to the Emergency Department: ? Fever or chills ? Increased drainage ? Green or yellow drainage ? Foul odor ? Increased pain ? Hardness around the wound ? Redness, warmth or swelling of the surrounding tissue ? Color change to the wound PLAN: Keep appointment with Marlen If there is any significant change in your condition, please call the wound center to report Dr. Dempsey office will contact you about surgery. Dr. Dempsey/kgr Chintan Dempsey, YONNY, DPM 02/14/2018 3:49 PM Signed Problem list reviewed. CHIEF COMPLAINT: Venous stasis ulcer of right lower leg with edema HISTORY OF PRESENT ILLNESS: Patient presents with venous stasis ulcer of right lower leg has edema BL venous insuficiency has been an issue for 6 months pain is burning 04/09 denies injury denies trauma Denies N/V/F/C/D/SOB/CP/LP Tried wound care Referred by Luis Benavides CURRENT MEDICATIONS: Medications List Reviewed (02/13/18 8:10:09 AM EST) Warfarin Sodium Oral Tablet 1 MG (01/02/2018) Vitamin D (Ergocalciferol) Oral Capsule 07094 UNIT (12/24/2017) Spironolactone Oral Tablet 25 MG (11/30/2017) Omeprazole Oral Capsule Delayed Release 20 MG (11/30/2017) MetOLazone Oral Tablet 2.5 MG (02/10/2018) Gabapentin Oral Capsule 300 MG (02/08/2018) Levothyroxine Sodium Oral Tablet 100 MCG (02/05/2018) Furosemide Oral Tablet 40 MG (01/30/2018) Lisinopril Oral Tablet 2.5 MG (01/02/2018) Metoprolol Tartrate Oral Tablet 25 MG (12/24/2017) Medication list reviewed. ALLERGIES: No Known Allergies Confirmed - 02/13/18 8:06:49 AM EST Allergy list reviewed. PAST MEDICAL HISTORY: Podiatry History remarkable for Leg or Foot Ulcers. The patient has a past medical history of Arthritis, Depression, Hypertension, Thyroid Disorder. sleep apnea acid reflux COPD SURGICAL HISTORY: gastric bypass b/l knee replacement tibia repaired hernia coronary stents HOSPITALIZATIONS: various SOCIAL HISTORY: Smoking Status: Never smoker; Last Reviewed: 02/13/2018; Second hand smoke exposure; Tobacco User: No Alcohol use: non-drinker No drug use Social History Reviewed updated (02/13/2018 8:03:43 AM EST) FAMILY HISTORY: Denial of any knowledge of significant family history Denial of any knowledge of significant family history, Denial of any knowledge of significant family history Family History Reviewed updated (02/13/2018 8:03:44 AM EST) REVIEW OF SYSTEMS: Cardiovascular: Admits to calf claudication, edema of feet or legs, cold hands or feet. Gastrointestinal: Admits to recurrent acid reflux. Neurologic Admits to muscle weakness, poor balance, shooting pains in the toes or feet. Psychologic: Admits to depression. Review of systems otherwise negative PHYSICAL EXAMINATION: Vascular Exam: BL Foot DP / PT pulses +2/4 CFT less than 3 seconds to digits, skin temp warm to warm from proximal to distal BL Foot Measurements: Measurements: Right Calf: 54.5?cm Right Ankle: ?32.5?cm Left Calf: ?39.5?cm Left Ankle: ?31.3?cm Dermatologic Exam: #1 Right lateral distal leg:?L: 3.8 cm x W: 5?cm x D: 0..8?cm post noted .9cm #2 Right medial distal leg:??Remains closed. #3 left distal calf: ??Remains closed. 4. Right anterior distal ace:??L: 1.0 cm x W: 1.0 cm x D: 0.1 cm Neurologic Exam: Comments/Other Findings: Vibratory sensations intact BL, Protective sensations intact BL tested with 5.07 monofilament at all 10 sites bl foot , vibratory sensations intact BL , and light, sharp, and temperature sensations intact bl after testing Muscle Testing of the Extensors, Flexors, Evertors (peroneals) , and Invertors ( posterior tibialis) BL leg shows 5/5 testing and normal strength noted. Babinski Test is normal BL foot Orthopedic Exam: Additional Orthopedic Findings: edema noted bl legs DIAGNOSIS: Right foot pain Left foot pain Peripheral vascular disease Edema of left foot Edema of right foot Ulcer of right lower extremity, limited to breakdown of skin Venous stasis ulcer of right lower extremity PLAN AND TREATMENT: Foot and Ankle and Lower extremity Exam and Evaluation carried out with a treatment plan reviewed with the patient and findings discussed with patient including alternatives, benefits, complications and risks. cont the sure press I recommended doing bi lay ergrat Excisional debridement carried out of the wound with sharp debridement past the dermis into subcutaneous level with use of curette and 15 scalpel blade and we then flushed out the wound with wound wash sterile saline. It is noted that all wounds sizes were measured in CM (centimeters), right leg veous stasis ulce rlegs recommended compression recommended wraps recommended surepress bl will get approved for graft plan march 08 shai will do 730 am will plan OR then I want her to follow up 2 weeks after but she can see Marlen because she has hard time coming on Tuesday I explained this was perfectly okay Right foot pain 729.5 M79.671 ANDamp; Left foot pain 729.5 M79.672 ANDamp; Peripheral vascular disease 443.9 I73.9 ANDamp; Edema of left foot 782.3 R60.0 ANDamp; Edema of right foot 782.3 R60.0 ANDamp; Ulcer of right lower extremity, limited to breakdown of skin 707.10 L97.911 ANDamp; Venous stasis ulcer of right lower extremity 454.0 I83.019 Referring Provider: LUIS SIMONS, ([facility]) [[id number]] Allergies As of Date: 02/14/2018 (No Known Allergies) Date Reviewed: 02/14/2018 Reviewed by: Tracy (Co) TORY Alas - Fully Assessed Reason for Visit: Wound Check [133] Cmt: right lower leg Primary Visit Diagnosis:Venous stasis ulcer of right lower leg with edema of right lower leg (HCC) [I83.019, I83.891, L97.919, R60.9] Prescriptions as of 02/14/2018 Sig: METOLAZONE 2.5 MG TABLET Take 2 tablets by mouth once * SODIUM HYPOCHLORITE 0.125 % S* Dakin's moistened gauze packi* SPIRONOLACTONE 25 MG TABLET Take 2 tablets by mouth twice* FUROSEMIDE 40 MG TABLET Take 2 tablets by mouth twice* WARFARIN 3 MG TABLET Take 1 tablet by mouth daily * GABAPENTIN 300 MG CAPSULE Take 1 capsule by mouth twice* METOPROLOL TARTRATE 25 MG TAB* Take 0.5 tablets by mouth twi* VITAMIN C ORAL Take 1 tablet by mouth twice * WARFARIN 1 MG TABLET TAKE ONE TABLET BY MOUTH ONCE* SILVER SULFADIAZINE 1 % TOPIC* Apply to leg wounds as direct* ZINC SULFATE 220 MG TABLET Take 1 tablet by mouth once d* ACETAMINOPHEN 500 MG TABLET Take 1,000 mg by mouth every * ASPIRIN 81 MG TABLET,DELAYED * Take 81 mg by mouth every jean* WARFARIN 1 MG TABLET Take 1 mg by mouth daily as d* LISINOPRIL 2.5 MG TABLET Take 2.5 mg by mouth every ev* OMEPRAZOLE 20 MG CAPSULE,LUIS MIGUEL* Take 20 mg by mouth once oliver* DOCUSATE SODIUM 100 MG CAPSULE Take 100 mg by mouth once yuly* MULTIVITAMIN-IRON 9 MG-FOLIC * Take 1 tablet by mouth once d* ERGOCALCIFEROL (VITAMIN D2) 5* Take 1 capsule by mouth once * LEVOTHYROXINE 100 MCG TABLET Take 1 tablet by mouth once d* COMPOUNDED PRESCRIPTION Calcium Alginate 4x4 Dressing* Problem List As Of Date 02/14/2018 Noted Resolved Gastroesophageal reflux disease without esophag*INVALID FOR* Chronic atrial fibrillation (HCC) [I48.2] INVALID FOR* Priority: B Pure hypercholesterolemia [E78.00] Hypertension [I10] Priority: D Acquired hypothyroidism [E03.9] Priority: F CAD (coronary artery disease) [I25.10] More... 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 More... More... Respiratory failure with hypoxia (HCC) [J96.91] INVALID FOR* Priority: Severe Heart failure with preserved ejection fraction *INVALID FOR* Priority: A More... Requires continuous at home supplemental oxygen*INVALID FOR*01/20/2018 More... Adjustment disorder with depressed mood [F43.21]INVALID FOR* Other instructions from your clinician: WOUND CARE INSTRUCTIONS Wound location: Right lower leg wound. Venous insufficiency bilateral lower legs Please keep dressing clean and dry 1. Wash your hands with soap and water before and after wound care. 2. Gather all supplies needed. 3. Wash wound with Dial soap and water. Pat dry. Moisturize with vitamin AANDD ointment 4. Apply dakins 0.25% moistened gauze to the wound base. 5. Cover with Dry Max and ABD pads 6. Apply surepress wrap from behind the toes to 1 below each knee 7. Change your dressing EVERY other day Left lower leg: Moisturize with vitamin AANDD ointment Apply surepress from behind the toes to 1 below the knee Tape to secure Change every other day You may purchase cast covers to wear to allow you to shower To give your wound the best chance to heal: - Eat three balanced meals daily focusing on the protein - Control swelling by elevating the extremity above your heart - exercise the extremity - Complete your wound care instructions - Vitamin C 500 mg twice daily - Multiple Vitamin Daily - Drink a protein shake daily - continue home care Report any of the following changes to the Wound Center at [phone] or go to the Emergency Department: ? Fever or chills ? Increased drainage ? Green or yellow drainage ? Foul odor ? Increased pain ? Hardness around the wound ? Redness, warmth or swelling of the surrounding tissue ? Color change to the wound PLAN: Keep appointment with Marlen If there is any significant change in your condition, please call the wound center to report Dr. Dempsey office will contact you about surgery. Dr. Dempsey/kgr Visit Notes: >> Tracy Martinez) TORY Alas Feb 14, 2018 8:19 AM Status: Addendum Nursing Note Dx: Venous insufficiency with ulcer with secondary lymphedema See provider note for wound description and measurements Patient has removed compression wraps yesterday at home. Dressing removed with dakins Saline 0.9% solution applied to all wounds In the presence and direction of the provider wound care as written below: Photos taken Wound vac offered and patient declines Vitamin AANDD ointment liberally applied to both lower legs Right lateral distal leg: SQ debridement. Wound flushed with 10 cc of saline solution. Pat dry. Dakins moistened gauze 0.25% was packed in to the wound bed. Site covered with dry max, abd pads and kerlix wrap. Tape to secure. Surpress applied from behind the toes to 1 below the knee.SurePress: Foot is warm and pink before and after application. It was demonstrated to the patient how to check for adequate circulation. Patient voices understanding. If circulation becomes compromised by a change in color, increased pain, numbness or tingling to the area, the patient knows to remove the compression and elevate the leg above the heart. Done per PIPPA RN. #1 Right lateral distal leg: L: 3.8 cm x W: 5.0cm x D: 1.0cm #2 Right medial distal leg: Remains closed. #3 left distal calf: Remains closed. 4. Right anterior distal ace: L: 1.0 cm x W: 1.0 cm x D: 0.1 cm Zinc oxide applied to the wound. Site covered with dry max, abd pad and kerlix wrap. surepress wrap was applied from behind the toes to 1 below the knee. Taped to secure. PLAN: Graft done in the OR by Dr. Dempsey on March 01 or March 08. His office will contact her. Patient instructions faxed to [facility] EDUCATION PER PROVIDER: The patient/family was instructed how to wash the wound(s) with dial soap, rinsing with water, AND patting dry. Visual demonstration on how to apply the dressing. Signs AND symptoms of infection were reviewed: Increased redness, swelling, pain, green, yellow drainage, fever or chills all would need to be evaluated by a Physician. Patient received typed homegoing wound care instructions and has expressed intent to comply. Encounter Status:Closed by CHINTAN DEMPSEY DPM on 02/14/18 WOUND Observed: 02/10/2018 Status: F Source: [facility] CULTURE/STAIN 1:30 PM CLINIC OTHER CAMPUS REPOSITORY Sp. Request/Comment: - Swab Smear Result - Rare Gram positive cocci in pairs --> ABNORMAL ALERT Rare --> ABNORMAL ALERT Gram positive diphtheroid-like bacilli --> ABNORMAL ALERT No Polymorphonuclear leukocytes Rare RBC Culture Result - Few Proteus mirabilis --> ABNORMAL ALERT Few --> ABNORMAL ALERT Staphylococcus aureus --> ABNORMAL ALERT Few skin sanchez ORGANISM: Proteus mirabilis METHOD: Minimum inhibitory concentration([employer]) Antibiotic Interp THEO Status Ampicillin SUSCEPTIBLE <=2 F Gentamicin SUSCEPTIBLE <=1 F Trimeth sulfameth SUSCEPTIBLE <=20 F Ciprofloxacin SUSCEPTIBLE <=0.25 F Cefepime SUSCEPTIBLE <=1 F Piperacillin/Tazobac SUSCEPTIBLE <=4 F Ampicillin Sulbact SUSCEPTIBLE <=2 F Ceftriaxone SUSCEPTIBLE <=1 F Meropenem SUSCEPTIBLE <=0.25 F Ertapenem SUSCEPTIBLE <=0.5 F ORGANISM: Staphylococcus aureus METHOD: Minimum inhibitory concentration(Vitek) Antibiotic Interp THEO Status Erythromycin SUSCEPTIBLE <=0.25 F Clindamycin SUSCEPTIBLE 0.25 F Tetracycline SUSCEPTIBLE <=1 F Vancomycin SUSCEPTIBLE <=0.5 F Oxacillin SUSCEPTIBLE <=0.25 F Oxacillin susceptible staphylococci are susceptible to other penicillinase stable penicillins, beta lactam/beta lactamase inhibitor combinations, anti staphyloccal cephems, and carbapenems. Trimeth sulfameth SUSCEPTIBLE <=10 F Gentamicin SUSCEPTIBLE <=0.5 F Rifampin SUSCEPTIBLE <=0.5 F Rifampin should not be used alone for antimicrobial therapy. Doxycycline SUSCEPTIBLE <=0.5 F Performed By: #### WCUL #### [facility] [address], [place] [address] PROGRESS Observed: 02/10/2018 Status: COMPLETED Source: [facility] 1:00 PM CLINIC OTHER CAMPUS REPOSITORY O ID: [id number] Author: Luis Lyles (Tray Room Worker) Carla Service: (none) Author Type: Nurse Practitioner Type: Progress Notes Filed: 05/01/2018 3:16 PM Note Text: DATE OF VISIT: 02/10/2018 REASON FOR VISIT: Non-healing lower extremity wound. HISTORY OF PRESENT ILLNESS: Rosa Beltran is a 81 year old female who presents to the [facility] for further evaluation and management of a non-healing leg wound. She has a past medical history significant for atrial fibrillation on Coumadin, coronary artery disease,?COPD, hypertension, dyslipidemia and CHF.?Patient has felt mildly short of breath over the past month. ?Increase with exertion and lying flat. She is on 40 mg of Lasix twice a day. She still is urinating appropriately. She has not had any chest pain or palpitations. ?Fever, chills, or sweats. ?No productive cough. ?No wheezing. Upon taking patients vitals, her SPO2 level was from 76% - 85%. Patient stated she had shortness of breath. She was unable to finish her sentences without catching her breath. The tips of her fingers were cyanotic. Patient was sent to the ER for further evaluation. Tiffanie BARBOSA wheeled patient to the ER. INTERVAL HISTORY: Patient was sent tot he ED during her previous visit due to low oxygenation. She is now on 2 L of oxygen at all times. She denies any breathing difficulty at this time. She is an 81 year old white female with a long-standing history of swelling in her lower extremities secondary to lymphedema. Approximately 2 years ago, she sustained a fracture to her right ankle, requiring surgical intervention. The operative site became infected, and required prolonged treatment and eventually a skin graft for complete wound closure. As a result, the patient's ambulatory capacity has been impaired. Furthermore, she is morbidly obese which limits her ambulation. The patient leads a relatively sedentary lifestyle and requires a walker for ambulation. She spends a great part of her day in a sitting position. She sleeps with the head of the bed elevated. Swelling in her lower extremities has been on-going for many years. The patient has undergone a battery of diagnostic tests. A non-invasive lower extremity arterial study in December 2016 reveals normal- ankle brachial indices, bilaterally. Venous doppler examination on 01/14 reveals incompetence of the great saphenous veins, bilaterally. There is also incompetence of the small saphenous veins, bilaterally and the right accessory saphenous vein. At present, she has three wounds, 2 on the right distal leg and the other is on the left posterior calf. The left leg wound has been present for over a year and was managed with silver alginate, NPWT, Santyl, serial sharp wound debridements, compression therapy using Surepress and compression pumps. Patient's wound cultures over the past several months have grown out Enterobacter cloacae, MRSA, coag-staph aureus, and in January grew out Pseudomonas, managed with oral antibiotics. IIn July of this year, she developed a new wound on the right lateral distal leg, then in July, she experience cellulitis of both legs requiring hospitalization. In the last year, she has been followed by Dr. Jaskaran Chance at the [facility]. It was felt that her home support system was inadequate and that she may not have the resources in her home environment to appropriately care for her needs. In this regard, a geriatric social work professor consultation had been recommended on several occassions, but patient apparently insisted on remaining in her home environment despite that there was thought that is may be less than optimal. The patient is here at the [facility] for a second opinion regarding management of the abovementioned bilateral lower extremity wounds. She offers no other complaints. She denies any fevers, chills, wound-related pain or other related symptoms. 02/10/18 Patient presents for follow-up. There is one wound remaining. Patient has increased drainage (green-tinged). There is significant maceration to the periwound skin. Patient denies any wound purulence, fevers, chills. To date, wounds have been managed with sharp debridement, collagen, compression therapy and nutritional support. She offers no new complaints. The edema in her lower extremities is well-controlled. She denies any fever, chills or other related symptoms. PAST MEDICAL HISTORY Diagnosis Date - Acquired hypothyroidism - Acute respiratory failure with hypoxia (HCC) 09/30/2017 - Atrial fibrillation ([facility]) - CAD (coronary artery disease) Dr. Brenda Awan Hts, Promus element KIMMY LAD 11/20/2012, Stress test 04/2014 inferoapical reversible ischemia,small LVEF 48- 50%, LHC 12/2014 L main-normal, LAD widely patent, Cx diffuse mild luminal irregularities with 80%focal stenosis distal, RCA dominant with minimal luminal irregularities. 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 - TOTAL KNEE REPLACEMENT Left 2004 [facility]. MEDICATIONS ergocalciferol, vitamin D2, (DRISDOL) 50,000 unit capsule Take 1 capsule by mouth once each week. levothyroxine (LEVOXYL) 100 mcg tablet Take 1 tablet by mouth once daily. Take on empty stomach. For Thyroid. gabapentin (NEURONTIN) 300 mg capsule Take 1 capsule by mouth twice daily. metoprolol tartrate, short acting, (LOPRESSOR) 50 mg tablet TAKE ONE TABLET BY MOUTH TWICE DAILY furosemide (LASIX) 40 mg tablet Take 1 tablet by mouth twice daily. COMPOUNDED PRESCRIPTION Calcium Alginate 4x4 Dressing, change daily Dx: Blister left leg with infection S80.822A, L08.9; Lymphedema I89.0. Wound dimensions: 4 x 3 cm acetaminophen (TYLENOL) 500 mg tablet Take 1,000 mg by mouth every 8 hours as needed. aspirin, enteric coated (ASPIRIN, ENTERIC COATED) 81 mg EC tablet Take 81 mg by mouth once daily. warfarin (COUMADIN) 1 mg tablet Take 1 mg by mouth daily as directed. Take 1 tablet (1mg) by mouth once daily. Take with 1 x 3mg tablet to total 4mg by mouth once daily. warfarin (COUMADIN) 3 mg tablet Take 3 mg by mouth daily as directed. Take 1 tablet (3mg) by mouth once daily. Take with 1 x 1mg tablet to total 4mg by mouth once daily. lisinopril (ZESTRIL) 2.5 mg tablet Take 2.5 mg by mouth once daily. omeprazole (PRILOSEC) 20 mg capsule Take 20 mg by mouth once daily. spironolactone (ALDACTONE) 25 mg tablet Take 25 mg by mouth once daily. docusate sodium (COLACE) 100 mg capsule Take 100 mg by mouth once daily as needed. therapeutic multivitamin w/ iron (THERAGRAN-M) 9 mg iron-400 mcg tablet Take 1 tablet by mouth once daily. ALLERGIES No Known Allergies FAMILY HISTORY: Patient's father in his 70s with a history of arthritis. Her mother at the age of 90 with a history of arthritis. SOCIAL HISTORY Patient is a , lives alone, but has a son nearby. She has 6 children. Substance Use Topics - Smoking status: Passive Smoke Exposure - Never Smoker - Smokeless tobacco: Never Used Comment: smoked for 40 years - Alcohol use No REVIEW OF SYSTEM: PAIN ASSESSMENT: Negative for pain, history of chronic pain, or current treatment for a chronic pain condition. GENERAL: No weight loss, malaise or fevers HEENT: Negative for frequent or significant headaches, No changes in hearing or vision, no nose bleeds or other nasal problems NECK: Negative for lumps, goiter, pain and significant neck swelling RESPIRATORY: Negative for cough, hemoptysis, wheezing, positive for shortness of breath CARDIOVASCULAR: Negative for chest pain,palpitations; has chronic leg swelling GI: No nausea, vomiting, or diarrhea : No history of dysuria, frequency or incontinence MUSCULOSKELETAL: Negative for joint pain or swelling, back pain or muscle pain SKIN: As per HPI. Negative for any other lesions, rash, and itching PSYCH: Negative for sleep disturbance, mood disorder and recent psychosocial stressors HEMATOLOGY/LYMPHOLOGY: Negative for prolonged bleeding, bruising easily or swollen nodes ENDOCRINE: Negative for cold or heat intolerance, polyuria, polydipsia and goiter NEURO: No history of headaches, syncope, paralysis, seizures or tremors 02/10/18 1300 BP: 135/69 Pulse: 60 Resp: 16 Temp: 36.5 ?C (97.8 ?F) TempSrc: Oral SpO2: 94% Weight: 88.1 kg (194 lb 4.8 oz) PHYSICAL EXAMINATION: HEENT: PERRLA , sclera non-icteric, EOM intact, mucous membrane moist, pink and w/o lesions Comments: Neck: Supple, no bruit, no masses, trachea midline Comments: Chest: Lungs clear to auscultation, no accessory muscle use for respiration Comments: Heart: Regular rate/rhythm, normal S1,S2, no murmur, rubs or gallops Comments: Abdomen: Soft, non-tender, non-distended, + bowel sounds, no bruit, no organomegaly Comments: Extremity: Dorsalis pedis : Present (Y) Absent Diminished Doppler Posterior Tibialis: Present (Y) Absent Diminished Doppler Capillary Refill: < 3 sec. (Y) > 3 sec. ABIs: Right Left Rubor of Dependency: Negative (Y) Positive (N) [place]if[place]in Examination: Comments: Measurements: Right Calf: 54.5 cm Right Ankle: 32.5 cm Left Calf: 39.5 cm Left Ankle: 31.3 cm Neuro: Alert AND oriented x3, AUTOMOTIVE SALES REPRESENTATIVE II-XII grossly intact, reflexes 2+ and symmetric, UE/LE 5/5 Comments: Skin: No rashes, no abnormal skin lesions Comments: See wound assessment Most recent diagnostic/laboratory data: 10/14/17 Hemoglobin A1C = 5.8 ?? 10/14/17 WBC 8.4, Hgb 12.2, Hct 38.5, PLT 211, Glu 91, BUN 24, Cr 0.88, Na 136, K 4.7, Cl 100, Albumin 3.6, Total protein 9.1 11/04/17 Venous Doppler Study Bilateral Lower Extremities IMPRESSION RIGHT SIDE - DEEP VEINS Negative for acute deep vein thrombosis in vessels visualized. Positive for valvular incompetency in the common femoral vein and femoral vein. Lymph node noted, within the groin, measuring 2.75 x 2.71 x .809cm. Cystic structure noted, within the popliteal fossa, measuring 2.17 x 2.67 x 1.49cm. ? RIGHT SIDE - SUPERFICIAL VEINS Positive for valvular incompetency in the great saphenous vein. REFLUX ONLY NOTED AT PROXIMAL THIGH. Vessel becomes tortuous branching from proximal to distal calf. The anterior lateral branch is negative for incompetency. Positive for valvular incompetency in the small saphenous vein. REFLUX ONLY NOTED AT DISTAL CALF. LEFT SIDE - DEEP VEINS Negative for acute deep vein thrombosis in vessels visualized. Positive for valvular incompetency in the femoral vein at the mid thigh. LEFT SIDE - SUPERFICIAL VEINS Positive for valvular incompetency in the great saphenous vein. REFLUX ONLY NOTED AT MID CALF. Negative for valvular incompetency in the small saphenous vein. No previous scans for comparison; however, chronic appearing superficial thrombophlebitis in the great saphenous vein at the distal calf. ? Technologist: Cleo Magdaleno RVT Ordering physician: Luis Simons ? Interpreting physician: Vishal Torres MD, RVT ? 01/24/17 Segmental arterial doppler study bilateral lower extremities Findings: NIMISHA 1.04 to the right and 1.0 to the left. Based upon the findings of this resting non-invasive lower extremity arterial study, arterial perfusion to ankle level appears to be relatively normal bilaterally. Triphasic and biphasic waveforms were noted at ankle level bilaterally. Resting ankle-brachial indices were bilaterally normal. ? 08/01/17 X-Ray 3-View Right Ankle Impression: There is prior open reduction internal fixation of the fibula which appears to be relatively intact allowing for advanced bony osteopenia. There is an irregular appearance of the lateral side distal tibia which is compatible with a prior fracture for which a new fracture on the lateral side is not excluded. The fracture could be potentially be associated with new trauma or potentially infection. Recommend consideration for follow-up study such as MRI or potentially three-phase bone scan. ? Flattened appearance of the arch of the foot with degenerative change of the tarsotarsal joints. ? Diffuse soft tissue swelling. ? Electronically Signed: Kelly Camarena MD at 20:15 EDT Tel , Service support , ? 10/14/17 XR 2 View Tib/Fib (Left) Findings: Left tibia-fibula: Tibial component of the joint prosthesis noted without associated abnormal lucency. No acute fracture or bony destruction. Right tibia and fibula: Plate and screw fixation remote distal fibular fracture. There is also remote tibial fracture with residual posterior angulation. Ghost tracks from previous tibial hardware. Tibial component of the joint prosthesis noted without associated abnormal lucency. No acute fracture or bony destruction. ? Stereotype Finisher: DWIGHT ? Transcribe Date/Time: Oct 14 2017 ?4:02P Dictated by : ZURDO SANTOS MD ? 10/14/17 XR 2 View Tib/Fib (Right) Findings: Left tibia-fibula: Tibial component of the joint prosthesis noted without associated abnormal lucency. No acute fracture or bony destruction. Right tibia and fibula: Plate and screw fixation remote distal fibular fracture. There is also remote tibial fracture with residual posterior angulation. Ghost tracks from previous tibial hardware. Tibial component of the joint prosthesis noted without associated abnormal lucency. No acute fracture or bony destruction. ? Stereotype Finisher: DWIGHT ? Transcribe Date/Time: Oct 14 2017 ?4:02P Dictated by : ZUROD SANTOS MD ? 10/14/17 XR 2 View Tib/Fib (Left) Findings: Left tibia-fibula: Tibial component of the joint prosthesis noted without associated abnormal lucency. No acute fracture or bony destruction. Right tibia and fibula: Plate and screw fixation remote distal fibular fracture. There is also remote tibial fracture with residual posterior angulation. Ghost tracks from previous tibial hardware. Tibial component of the joint prosthesis noted without associated abnormal lucency. No acute fracture or bony destruction. WOUND ASSESSMENT: Wound Number: 1 First Assessed Date: 10/14/17 Pre-existing: YES Location: Leg Orientation: Right, Lateral and Distal Wound Etiology: Venous Depth of Tissue Injury (Non-pressure): Full Thickness Diabetic Wounds:N/A Pressure Injury: N/A Pre-Measurements Initial (First Visit): 3.5 cm length x 4.0 cm width x 0.5 cm depth Post Measurement (Current): 4.2 cm length x 4.9 cm width x 0.9 cm depth % Healing Rate/#Weeks: -2.6 % -- Week 16 Wound Bed (Post-debridement): 100% red % of Healthy tissue: Undermining: No Tunneling: No Tendon/bone exposed: NO Wound Edge/Margins: Irregular wound edges and Edge attached to base Periwound Tissue: Mild erythema, Wet (macerated), and Edema Exudate Amount:Moderate Consistency:Serous Odor:Minimal Infection/Critical Colonization Localized s/s: Non-healing and Increased exudate Systemic s/s: None Local/systemic Rx: None Wound Healing Status: Chronic Clinically presenting as: Stalled wound healing Current topical treatment: Collagen Wound Number: 2 First Assessed Date: 10/14/17 Pre-existing: YES Location: Leg Orientation: Right, Medial and Distal Wound Etiology: Surgical Depth of Tissue Injury (Non-pressure): Partial Thickness Diabetic Wounds:N/A Pressure Injury: N/A Pre-Measurements Initial (First Visit): 0.5 cm length x 0.4 cm width x 0.1 cm depth Post Measurement (Current): Epithelialized % Healing Rate/#Weeks: Week 1 -- Healed Wound Bed (Post-debridement): % of Healthy tissue: Undermining: No Tunneling: No Tendon/bone exposed: NO Wound Edge/Margins: Normal, intact, Irregular wound edges and Edge attached to base Periwound Tissue: Normal, intact,uninvolved tissue and Dry,flaky Exudate Amount: None Consistency: None Odor:None Infection/Critical Colonization Localized s/s: None and Edema Systemic s/s: None Local/systemic Rx: None Wound Healing Status: Chronic Clinically presenting as: Healed Current topical treatment: Iodoflex Wound Number: 3 First Assessed Date: 10/14/17 Pre-existing: YES Location: Leg (calf) Orientation: Left and Posterior Wound Etiology: Venous Depth of Tissue Injury (Non-pressure): Full Thickness Diabetic Wounds:N/A Pressure Injury: N/A Pre-Measurements Initial (First Visit): 1.3 cm length x 1.2 cm width x 0.1 cm depth Post Measurement (Current): Epithelialized % Healing Rate/#Weeks: 100 % -- Week 5 Wound Bed (Post-debridement): 100% [employer] % of Healthy tissue: Undermining: No Tunneling: No Tendon/bone exposed: NO Wound Edge/Margins: Well-defined wound edges and Edge attached to base Periwound Tissue: [employer], dry and intact, No fluctuance, induration or advancing soft tissue necrosis or ischemia Exudate: Nonr Consistency: None Odor:None Infection/Critical Colonization: N/A Localized s/s: None Systemic s/s: None Local/systemic Rx: None Wound Healing Status: Chronic Clinically presenting as: Healed Current topical treatment: Collagen Wound Number: 4 First Assessed Date: 10/14/17 Pre-existing: YES Location: Right Orientation: Anterior Distal Ace Wound Etiology: Venous Depth of Tissue Injury (Non-pressure): Full Thickness Diabetic Wounds:N/A Pressure Injury: N/A Pre-Measurements Initial (First Visit): 1.3 cm length x 1.2 cm width x 0.1 cm depth Post Measurement (Current): 1.0 cm length x 1.0 cm width x 0.1 cm depth % Healing Rate/#Weeks: Week 15 -- 33.3! Wound Bed (Post-debridement): 100% [employer] % of Healthy tissue: Undermining: No Tunneling: No Tendon/bone exposed: NO Wound Edge/Margins: Well-defined wound edges and Edge attached to base Periwound Tissue: [employer], dry and intact, No fluctuance, induration or advancing soft tissue necrosis or ischemia Exudate: MInimal Consistency: None Odor:None Infection/Critical Colonization: N/A Localized s/s: None Systemic s/s: None Local/systemic Rx: None Wound Healing Status: Chronic Clinically presenting as: Healed Current topical treatment: Collagen IMPRESSION: 1. Non-healing right and left lower extremity wounds ( #1 and #3) in the setting of chronic venous insufficiency with secondary lymphedema. 2. Recurrent right medial leg wound s/p STSG in the setting of chronic edema. 3. Significant lower extremity edema secondary to underlying chronic venous insufficiency with secondary lymphedema. 4. Multiple risk factors or co-morbidities that may contribute to wound healing difficulties include hypothyroid disease, chronic atrial fibrillation on anticoagulation, coronary artery disease, COPD, dyslipidemia, hypertension, muscle weakness, osteoarthritis, GERD, depression and obesity. 5. Wound cultures positive for Enterobacter cloacae and Staph aureus most likely increased colonization. 6. Very good glucose control based on recent HgbA1c. 7. Zinc insufficiency ( precursor for collagen synthesis. 8. No significant arterial disease based on recent PVRs. 9. No evidence of osteomyelitis based on recent XRs. 10. Valvular incompetency involving the right common femoral vein , right femoral vein, right great saphenous vein, left femoral vein (mid thigh) and left great saphenous vein (mid thigh). TREATMENT PLAN: Debridement Type: Autolytic Enzymatic Mechanical Surgical Sharp (Y) Other: ?? Sharp debridement is performed to freshen up the wound and stimulate the healing cascade. It allows the wound to progress from the inflammatory to the proliferative phase of wound healing. Wound Dressing: See Nursing Notes for details. . Topical Rx: Right lateral distal leg: Right lateral distal leg: Lido gel applied prior to the SQ debridement per provider. Wound flushed with 10 cc of saline solution. Wound culture collected. Pat dry. Dakins moistened gauze 0.25% was packed in to the wound bed. Site covered with dry max, abd pads and kerlix wrap. Tape to secure. surpress applied from behind the toes to 1 below the knee. Left lower leg: surpress applied from behind the toes to 1 below the knee. #1 Right lateral distal leg: L: 4.2 cm x W: 4.9 cm x D: 0.9 cm #2 Right med ial distal leg: Remains closed. #3 left distal calf: Remains closed. 4. Right anterior distal aec: L: 1.0 cm x W: 1.0 cm x D: 0.1 cm Zinc oxide applied to the wound. Site covered with dry max, abd pad and kerlix wrap. surepress wrap was applied from behind the toes to 1 below the knee. Taped to secure. SurePress: Foot is warm and pink before and after application. It was demonstrated to the patient how to check for adequate circulation. Patient voices understanding. If circulation becomes compromised by a change in color, increased pain, numbness or tingling to the area, the patient knows to remove the compression and elevate the leg above the heart. Measurements: Right Calf: 54.5 cm Right Ankle: 32.5 cm Left Calf: 39.5 cm Left Ankle: 31.3 cm PLAN: Return to the Wound Center in 2 x weeks to see Marlen If there is any significant change in your condition, please call the wound center to report New wound care Schedule an appointment with Dr. Dempsey for 02/14/18 CirAids to be ordered for maintenance therapy. Use pneumatic compression pumps twice daily with 40-50 mmhg compression Systemic Rx: Doxycycline 100 mg by mouth twice daily x 14 days and zinc 220 mg by mouth daily x 14 days (Completed.) Nutritional Support: MVI, Zinc Supplement and Protein Supplement Patient is instructed to continue a healthy, well-balanced diet for nutritional support for optimal healing. Protein is the most important nutrient for wound healing. Eating adequate amounts of protein allows the body to create new cells and chemicals to heal the wound, and increases the body?s ability to fight infection. Eating high protein foods daily is recommended such as: lean meats, fish, poultry, cheese, milk, yogurt, eggs and legumes. Vitamins and minerals provide a full range of nutrients for wound healing. It can help jump start the body's production of cells and chemicals needed for healing. Vitamins and minerals can be obtained through healthy foods in your diet and by taking a multiple vitamin supplement. Vitamin C is essential for collagen synthesis. Collagen and fibroblasts compose the basis for the structure of a new wound bed. Also, a deficiency of Vitamin C prolongs the healing time and contributes to reduced resistance to infection. Laboratory: We will obtain wound cultures to determine bacterial load. She will be treated accordingly. Wound cultures are collected to assess level of bacterial bio-burden. Excessive bio-burden can result in inflammatory and proliferative phase stagnation as well as compromise of normal wound healing physiology. Bacterial proliferation, biofilm production, critical colonization and the development of resistant organism can lead to wound infection, wound deterioration and devastating tissue loss. Knowing the organism that populated the wound can help direct therapy, particularly anti-microbial dressing choices. Vascular Evaluation: PVRs for both lower extremities to evaluate for arterial insufficiency to see if poor circulation is an issue regarding her slow healing. Based on vascular studies, patient to see Dr. Lili Mcnair for further evaluation and management of venous disease (valvular incompetency). Follow-up is scheduled in 1 week, sooner with any concerns or worsening symptoms. Luis Simons CNP Charge Capture: [id number]; [id number] CNOV Observed: 02/10/2018 Status: COMPLETED Source: [facility] 1:00 PM CLINIC OTHER CAMPUS REPOSITORY Office Visit ([facility]) ROSA BELTRAN ([id number]) 1935 F Date Time Provider Department 02/10/18 1:00 PM LUIS SIMONS, (LOI) [facility] During your visit today, we recorded the following information about you: Luis Simons APRN.CNP 05/01/2018 3:16 PM Addendum DATE OF VISIT: 02/10/2018 REASON FOR VISIT: Non-healing lower extremity wound. HISTORY OF PRESENT ILLNESS: Rosa Desai Devin is a 81 year old female who presents to the [facility] for further evaluation and management of a non-healing leg wound. She has a past medical history significant for atrial fibrillation on Coumadin, coronary artery disease,?COPD, hypertension, dyslipidemia and CHF.?Patient has felt mildly short of breath over the past month. ?Increase with exertion and lying flat. She is on 40 mg of Lasix twice a day. She still is urinating appropriately. She has not had any chest pain or palpitations. ?Fever, chills, or sweats. ?No productive cough. ?No wheezing. Upon taking patients vitals, her SPO2 level was from 76% - 85%. Patient stated she had shortness of breath. She was unable to finish her sentences without catching her breath. The tips of her fingers were cyanotic. Patient was sent to the ER for further evaluation. Tiffanie BARBOSA wheeled patient to the ER. INTERVAL HISTORY: Patient was sent tot he ED during her previous visit due to low oxygenation. She is now on 2 L of oxygen at all times. She denies any breathing difficulty at this time. She is an 81 year old white female with a long-standing history of swelling in her lower extremities secondary to lymphedema. Approximately 2 years ago, she sustained a fracture to her right ankle, requiring surgical intervention. The operative site became infected, and required prolonged treatment and eventually a skin graft for complete wound closure. As a result, the patient's ambulatory capacity has been impaired. Furthermore, she is morbidly obese which limits her ambulation. The patient leads a relatively sedentary lifestyle and requires a walker for ambulation. She spends a great part of her day in a sitting position. She sleeps with the head of the bed elevated. Swelling in her lower extremities has been on-going for many years. The patient has undergone a battery of diagnostic tests. A non-invasive lower extremity arterial study in December 2016 reveals normal-ankle brachial indices, bilaterally. Venous doppler examination on 01/14 reveals incompetence of the great saphenous veins, bilaterally. There is also incompetence of the small saphenous veins, bilaterally and the right accessory saphenous vein. At present, she has three wounds, 2 on the right distal leg and the other is on the left posterior calf. The left leg wound has been present for over a year and was managed with silver alginate, NPWT, Santyl, serial sharp wound debridements, compression therapy using Surepress and compression pumps. Patient's wound cultures over the past several months have grown out Enterobacter cloacae, MRSA, coag-staph aureus, and in January grew out Pseudomonas, managed with oral antibiotics. IIn July of this year, she developed a new wound on the right lateral distal leg, then in July, she experience cellulitis of both legs requiring hospitalization. In the last year, she has been followed by Dr. Jaskaran Chance at the [facility] [place] [facility]. It was felt that her home support system was inadequate and that she may not have the resources in her home environment to appropriately care for her needs. In this regard, a geriatric social work professor consultation had been recommended on several occassions, but patient apparently insisted on remaining in her home environment despite that there was thought that is may be less than optimal. The patient is here at the [facility] for a second opinion regarding management of the abovementioned bilateral lower extremity wounds. She offers no other complaints. She denies any fevers, chills, wound-related pain or other related symptoms. 02/10/18 Patient presents for follow-up. There is one wound remaining. Patient has increased drainage (green-tinged). There is significant maceration to the periwound skin. Patient denies any wound purulence, fevers, chills. To date, wounds have been managed with sharp debridement, collagen, compression therapy and nutritional support. She offers no new complaints. The edema in her lower extremities is well-controlled. She denies any fever, chills or other related symptoms. PAST MEDICAL HISTORY Diagnosis Date - Acquired hypothyroidism - Acute respiratory failure with hypoxia ([facility]) 09/30/2017 - Atrial fibrillation ([facility]) - CAD (coronary artery disease) Dr. Brenda Awan Hts, Promus element KIMMY LAD 11/20/2012, Stress test 04/2014 inferoapical reversible ischemia,small LVEF 48-50%, LHC 12/2014 L main-normal, LAD widely patent, Cx diffuse mild luminal irregularities with 80%focal stenosis distal, RCA dominant with minimal luminal irregularities. 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 - Pure hypercholesterolemia - Rheumatoid arthritis (HCC) 2007 - Sleep apnea - Stented coronary artery 12/29/2016 PAST SURGICAL HISTORY Procedure Laterality Date - CC CORONARY STENT 11/20/2012 KIMMY LAD - CC CORONARY STENT 12/20/2014 KIM[facility], Cfx - SECTION HX - COLONOSCOPY 06/10/2017 [facility], Nonspecific cecal ulcer - GASTRIC BYPASS HX 1987 - HERNIA REPAIR HX 1988; 1990 - PAST SURGICAL HISTORY OF Right 09/2015 right tibia fracture ORIF - PAST SURGICAL HISTORY OF Right 01/20/2016 Removal of hardware, right tibia - TOTAL KNEE REPLACEMENT Right 2003 [facility]. - TOTAL KNEE REPLACEMENT Left 2004 [facility]. MEDICATIONS ergocalciferol, vitamin D2, (DRISDOL) 50,000 unit capsule Take 1 capsule by mouth once each week. levothyroxine (LEVOXYL) 100 mcg tablet Take 1 tablet by mouth once daily. Take on empty stomach. For Thyroid. gabapentin (NEURONTIN) 300 mg capsule Take 1 capsule by mouth twice daily. metoprolol tartrate, short acting, (LOPRESSOR) 50 mg tablet TAKE ONE TABLET BY MOUTH TWICE DAILY furosemide (LASIX) 40 mg tablet Take 1 tablet by mouth twice daily. COMPOUNDED PRESCRIPTION Calcium Alginate 4x4 Dressing, change daily Dx: Blister left leg with infection S80.822A, L08.9; Lymphedema I89.0. Wound dimensions: 4 x 3 cm acetaminophen (TYLENOL) 500 mg tablet Take 1,000 mg by mouth every 8 hours as needed. aspirin, enteric coated (ASPIRIN, ENTERIC COATED) 81 mg EC tablet Take 81 mg by mouth once daily. warfarin (COUMADIN) 1 mg tablet Take 1 mg by mouth daily as directed. Take 1 tablet (1mg) by mouth once daily. Take with 1 x 3mg tablet to total 4mg by mouth once daily. warfarin (COUMADIN) 3 mg tablet Take 3 mg by mouth daily as directed. Take 1 tablet (3mg) by mouth once daily. Take with 1 x 1mg tablet to total 4mg by mouth once daily. lisinopril (ZESTRIL) 2.5 mg tablet Take 2.5 mg by mouth once daily. omeprazole (PRILOSEC) 20 mg capsule Take 20 mg by mouth once daily. spironolactone (ALDACTONE) 25 mg tablet Take 25 mg by mouth once daily. docusate sodium (COLACE) 100 mg capsule Take 100 mg by mouth once daily as needed. therapeutic multivitamin w/ iron (THERAGRAN-M) 9 mg iron-400 mcg tablet Take 1 tablet by mouth once daily. ALLERGIES No Known Allergies FAMILY HISTORY: Patient's father in his 70s with a history of arthritis. Her mother at the age of 90 with a history of arthritis. SOCIAL HISTORY Patient is a , lives alone, but has a son nearby. She has 6 children. Substance Use Topics - Smoking status: Passive Smoke Exposure - Never Smoker - Smokeless tobacco: Never Used Comment: smoked for 40 years - Alcohol use No REVIEW OF SYSTEM: PAIN ASSESSMENT: Negative for pain, history of chronic pain, or current treatment for a chronic pain condition. GENERAL: No weight loss, malaise or fevers HEENT: Negative for frequent or significant headaches, No changes in hearing or vision, no nose bleeds or other nasal problems NECK: Negative for lumps, goiter, pain and significant neck swelling RESPIRATORY: Negative for cough, hemoptysis, wheezing, positive for shortness of breath CARDIOVASCULAR: Negative for chest pain,palpitations; has chronic leg swelling GI: No nausea, vomiting, or diarrhea : No history of dysuria, frequency or incontinence MUSCULOSKELETAL: Negative for joint pain or swelling, back pain or muscle pain SKIN: As per HPI. Negative for any other lesions, rash, and itching PSYCH: Negative for sleep disturbance, mood disorder and recent psychosocial stressors HEMATOLOGY/LYMPHOLOGY: Negative for prolonged bleeding, bruising easily or swollen nodes ENDOCRINE: Negative for cold or heat intolerance, polyuria, polydipsia and goiter NEURO: No history of headaches, syncope, paralysis, seizures or tremors 02/10/18 1300 BP: 135/69 Pulse: 60 Resp: 16 Temp: 36.5 ?C (97.8 ?F) TempSrc: Oral SpO2: 94% Weight: 88.1 kg (194 lb 4.8 oz) PHYSICAL EXAMINATION: HEENT: PERRLA , sclera non-icteric, EOM intact, mucous membrane moist, pink and w/o lesions Comments: Neck: Supple, no bruit, no masses, trachea midline Comments: Chest: Lungs clear to auscultation, no accessory muscle use for respiration Comments: Heart: Regular rate/rhythm, normal S1,S2, no murmur, rubs or gallops Comments: Abdomen: Soft, non-tender, non-distended, + bowel sounds, no bruit, no organomegaly Comments: Extremity: Dorsalis pedis : Present (Y) Absent Diminished Doppler Posterior Tibialis: Present (Y) Absent Diminished Doppler Capillary Refill: < 3 sec. (Y) > 3 sec. ABIs: Right Left Rubor of Dependency: Negative (Y) Positive (N) [place] Examination: Comments: Measurements: Right Calf: 54.5 cm Right Ankle: 32.5 cm Left Calf: 39.5 cm Left Ankle: 31.3 cm Neuro: Alert AND oriented x3, AUTOMOTIVE SALES REPRESENTATIVE II-XII grossly intact, reflexes 2+ and symmetric, UE/LE 5/5 Comments: Skin: No rashes, no abnormal skin lesions Comments: See wound assessment Most recent diagnostic/laboratory data: 10/14/17 Hemoglobin A1C = 5.8 ?? 10/14/17 WBC 8.4, Hgb 12.2, Hct 38.5, PLT 211, Glu 91, BUN 24, Cr 0.88, Na 136, K 4.7, Cl 100, Albumin 3.6, Total protein 9.1 11/04/17 Venous Doppler Study Bilateral Lower Extremities IMPRESSION RIGHT SIDE - DEEP VEINS Negative for acute deep vein thrombosis in vessels visualized. Positive for valvular incompetency in the common femoral vein and femoral vein. Lymph node noted, within the groin, measuring 2.75 x 2.71 x .809cm. Cystic structure noted, within the popliteal fossa, measuring 2.17 x 2.67 x 1.49cm. ? RIGHT SIDE - SUPERFICIAL VEINS Positive for valvular incompetency in the great saphenous vein. REFLUX ONLY NOTED AT PROXIMAL THIGH. Vessel becomes tortuous branching from proximal to distal calf. The anterior lateral branch is negative for incompetency. Positive for valvular incompetency in the small saphenous vein. REFLUX ONLY NOTED AT DISTAL CALF. LEFT SIDE - DEEP VEINS Negative for acute deep vein thrombosis in vessels visualized. Positive for valvular incompetency in the femoral vein at the mid thigh. LEFT SIDE - SUPERFICIAL VEINS Positive for valvular incompetency in the great saphenous vein. REFLUX ONLY NOTED AT MID CALF. Negative for valvular incompetency in the small saphenous vein. No previous scans for comparison; however, chronic appearing superficial thrombophlebitis in the great saphenous vein at the distal calf. ? Technologist: Cleo Magdaleno RVT Ordering physician: Luis Simons ? Interpreting physician: Vishal Torres MD, RVT ? 01/24/17 Segmental arterial doppler study bilateral lower extremities Findings: NIMISHA 1.04 to the right and 1.0 to the left. Based upon the findings of this resting non-invasive lower extremity arterial study, arterial perfusion to ankle level appears to be relatively normal bilaterally. Triphasic and biphasic waveforms were noted at ankle level bilaterally. Resting ankle- brachial indices were bilaterally normal. ? 08/01/17 X-Ray 3-View Right Ankle Impression: There is prior open reduction internal fixation of the fibula which appears to be relatively intact allowing for advanced bony osteopenia. There is an irregular appearance of the lateral side distal tibia which is compatible with a prior fracture for which a new fracture on the lateral side is not excluded. The fracture could be potentially be associated with new trauma or potentially infection. Recommend consideration for follow- up study such as MRI or potentially three-phase bone scan. ? Flattened appearance of the arch of the foot with degenerative change of the tarsotarsal joints. ? Diffuse soft tissue swelling. ? Electronically Signed: Kelly Camarena MD at 20:15 EDT Tel , Service support , ? 10/14/17 XR 2 View Tib/Fib (Left) Findings: Left tibia-fibula: Tibial component of the joint prosthesis noted without associated abnormal lucency. No acute fracture or bony destruction. Right tibia and fibula: Plate and screw fixation remote distal fibular fracture. There is also remote tibial fracture with residual posterior angulation. Ghost tracks from previous tibial hardware. Tibial component of the joint prosthesis noted without associated abnormal lucency. No acute fracture or bony destruction. ? Stereotype Finisher: DWIGHT ? Transcribe Date/Time: Oct 14 2017 ?4:02P Dictated by : ZURDO SANTOS MD ? 10/14/17 XR 2 View Tib/Fib (Right) Findings: Left tibia-fibula: Tibial component of the joint prosthesis noted without associated abnormal lucency. No acute fracture or bony destruction. Right tibia and fibula: Plate and screw fixation remote distal fibular fracture. There is also remote tibial fracture with residual posterior angulation. Ghost tracks from previous tibial hardware. Tibial component of the joint prosthesis noted without associated abnormal lucency. No acute fracture or bony destruction. ? Stereotype Finisher: DWIGHT ? Transcribe Date/Time: Oct 14 2017 ?4:02P Dictated by : ZURDO SANTOS MD ? 10/14/17 XR 2 View Tib/Fib (Left) Findings: Left tibia-fibula: Tibial component of the joint prosthesis noted without associated abnormal lucency. No acute fracture or bony destruction. Right tibia and fibula: Plate and screw fixation remote distal fibular fracture. There is also remote tibial fracture with residual posterior angulation. Ghost tracks from previous tibial hardware. Tibial component of the joint prosthesis noted without associated abnormal lucency. No acute fracture or bony destruction. WOUND ASSESSMENT: Wound Number: 1 First Assessed Date: 10/14/17 Pre-existing: YES Location: Leg Orientation: Right, Lateral and Distal Wound Etiology: Venous Depth of Tissue Injury (Non-pressure): Full Thickness Diabetic Wounds:N/A Pressure Injury: N/A Pre-Measurements Initial (First Visit): 3.5 cm length x 4.0 cm width x 0.5 cm depth Post Measurement (Current): 4.2 cm length x 4.9 cm width x 0.9 cm depth % Healing Rate/#Weeks: -2.6 % -- Week 16 Wound Bed (Post-debridement): 100% red % of Healthy tissue: Undermining: No Tunneling: No Tendon/bone exposed: NO Wound Edge/Margins: Irregular wound edges and Edge attached to base Periwound Tissue: Mild erythema, Wet (macerated), and Edema Exudate Amount:Moderate Consistency:Serous Odor:Minimal Infection/Critical Colonization Localized s/s: Non-healing and Increased exudate Systemic s/s: None Local/systemic Rx: None Wound Healing Status: Chronic Clinically presenting as: Stalled wound healing Current topical treatment: Collagen Wound Number: 2 First Assessed Date: 10/14/17 Pre-existing: YES Location: Leg Orientation: Right, Medial and Distal Wound Etiology: Surgical Depth of Tissue Injury (Non-pressure): Partial Thickness Diabetic Wounds:N/A Pressure Injury: N/A Pre-Measurements Initial (First Visit): 0.5 cm length x 0.4 cm width x 0.1 cm depth Post Measurement (Current): Epithelialized % Healing Rate/#Weeks: Week 1 -- Healed Wound Bed (Post-debridement): % of Healthy tissue: Undermining: No Tunneling: No Tendon/bone exposed: NO Wound Edge/Margins: Normal, intact, Irregular wound edges and Edge attached to base Periwound Tissue: Normal, intact,uninvolved tissue and Dry,flaky Exudate Amount: None Consistency: None Odor:None Infection/Critical Colonization Localized s/s: None and Edema Systemic s/s: None Local/systemic Rx: None Wound Healing Status: Chronic Clinically presenting as: Healed Current topical treatment: Iodoflex Wound Number: 3 First Assessed Date: 10/14/17 Pre-existing: YES Location: Leg (calf) Orientation: Left and Posterior Wound Etiology: Venous Depth of Tissue Injury (Non-pressure): Full Thickness Diabetic Wounds:N/A Pressure Injury: N/A Pre-Measurements Initial (First Visit): 1.3 cm length x 1.2 cm width x 0.1 cm depth Post Measurement (Current): Epithelialized % Healing Rate/#Weeks: 100 % -- Week 5 Wound Bed (Post-debridement): 100% [employer] % of Healthy tissue: Undermining: No Tunneling: No Tendon/bone exposed: NO Wound Edge/Margins: Well-defined wound edges and Edge attached to base Periwound Tissue: [employer], dry and intact, No fluctuance, induration or advancing soft tissue necrosis or ischemia Exudate: Nonr Consistency: None Odor:None Infection/Critical Colonization: N/A Localized s/s: None Systemic s/s: None Local/systemic Rx: None Wound Healing Status: Chronic Clinically presenting as: Healed Current topical treatment: Collagen Wound Number: 4 First Assessed Date: 10/14/17 Pre-existing: YES Location: Right Orientation: Anterior Distal Ace Wound Etiology: Venous Depth of Tissue Injury (Non-pressure): Full Thickness Diabetic Wounds:N/A Pressure Injury: N/A Pre-Measurements Initial (First Visit): 1.3 cm length x 1.2 cm width x 0.1 cm depth Post Measurement (Current): 1.0 cm length x 1.0 cm width x 0.1 cm depth % Healing Rate/#Weeks: Week 15 -- 33.3! Wound Bed (Post-debridement): 100% [employer] % of Healthy tissue: Undermining: No Tunneling: No Tendon/bone exposed: NO Wound Edge/Margins: Well-defined wound edges and Edge attached to base Periwound Tissue: [employer], dry and intact, No fluctuance, induration or advancing soft tissue necrosis or ischemia Exudate: MInimal Consistency: None Odor:None Infection/Critical Colonization: N/A Localized s/s: None Systemic s/s: None Local/systemic Rx: None Wound Healing Status: Chronic Clinically presenting as: Healed Current topical treatment: Collagen IMPRESSION: 1. Non-healing right and left lower extremity wounds ( #1 and #3) in the setting of chronic venous insufficiency with secondary lymphedema. 2. Recurrent right medial leg wound s/p STSG in the setting of chronic edema. 3. Significant lower extremity edema secondary to underlying chronic venous insufficiency with secondary lymphedema. 4. Multiple risk factors or co-morbidities that may contribute to wound healing difficulties include hypothyroid disease, chronic atrial fibrillation on anticoagulation, coronary artery disease, COPD, dyslipidemia, hypertension, muscle weakness, osteoarthritis, GERD, depression and obesity. 5. Wound cultures positive for Enterobacter cloacae and Staph aureus most likely increased colonization. 6. Very good glucose control based on recent HgbA1c. 7. Zinc insufficiency ( precursor for collagen synthesis. 8. No significant arterial disease based on recent PVRs. 9. No evidence of osteomyelitis based on recent XRs. 10. Valvular incompetency involving the right common femoral vein , right femoral vein, right great saphenous vein, left femoral vein (mid thigh) and left great saphenous vein (mid thigh). TREATMENT PLAN: Debridement Type: Autolytic Enzymatic Mechanical Surgical Sharp (Y) Other: ?? Sharp debridement is performed to freshen up the wound and stimulate the healing cascade. It allows the wound to progress from the inflammatory to the proliferative phase of wound healing. Wound Dressing: See Nursing Notes for details. . Topical Rx: Right lateral distal leg: Right lateral distal leg: Lido gel applied prior to the SQ debridement per provider. Wound flushed with 10 cc of saline solution. Wound culture collected. Pat dry. Dakins moistened gauze 0.25% was packed in to the wound bed. Site covered with dry max, abd pads and kerlix wrap. Tape to secure. surpress applied from behind the toes to 1 below the knee. Left lower leg: surpress applied from behind the toes to 1 below the knee. #1 Right lateral distal leg: L: 4.2 cm x W: 4.9 cm x D: 0.9 cm #2 Right med ial distal leg: Remains closed. #3 left distal calf: Remains closed. 4. Right anterior distal ace: L: 1.0 cm x W: 1.0 cm x D: 0.1 cm Zinc oxide applied to the wound. Site covered with dry max, abd pad and kerlix wrap. surepress wrap was applied from behind the toes to 1 below the knee. Taped to secure. SurePress: Foot is warm and pink before and after application. It was demonstrated to the patient how to check for adequate circulation. Patient voices understanding. If circulation becomes compromised by a change in color, increased pain, numbness or tingling to the area, the patient knows to remove the compression and elevate the leg above the heart. Measurements: Right Calf: 54.5 cm Right Ankle: 32.5 cm Left Calf: 39.5 cm Left Ankle: 31.3 cm PLAN: Return to the Wound Center in 2 x weeks to see Marlen If there is any significant change in your condition, please call the wound center to report New wound care Schedule an appointment with Dr. Dempsey for 02/14/18 CirAids to be ordered for maintenance therapy. Use pneumatic compression pumps twice daily with 40-50 mmhg compression Systemic Rx: Doxycycline 100 mg by mouth twice daily x 14 days and zinc 220 mg by mouth daily x 14 days (Completed.) Nutritional Support: MVI, Zinc Supplement and Protein Supplement Patient is instructed to continue a healthy, well-balanced diet for nutritional support for optimal healing. Protein is the most important nutrient for wound healing. Eating adequate amounts of protein allows the body to create new cells and chemicals to heal the wound, and increases the body?s ability to fight infection. Eating high protein foods daily is recommended such as: lean meats, fish, poultry, cheese, milk, yogurt, eggs and legumes. Vitamins and minerals provide a full range of nutrients for wound healing. It can help jump start the body's production of cells and chemicals needed for healing. Vitamins and minerals can be obtained through healthy foods in your diet and by taking a multiple vitamin supplement. Vitamin C is essential for collagen synthesis. Collagen and fibroblasts compose the basis for the structure of a new wound bed. Also, a deficiency of Vitamin C prolongs the healing time and contributes to reduced resistance to infection. Laboratory: We will obtain wound cultures to determine bacterial load. She will be treated accordingly. Wound cultures are collected to assess level of bacterial bio-burden. Excessive bio-burden can result in inflammatory and proliferative phase stagnation as well as compromise of normal wound healing physiology. Bacterial proliferation, biofilm production, critical colonization and the development of resistant organism can lead to wound infection, wound deterioration and devastating tissue loss. Knowing the organism that populated the wound can help direct therapy, particularly anti-microbial dressing choices. Vascular Evaluation: PVRs for both lower extremities to evaluate for arterial insufficiency to see if poor circulation is an issue regarding her slow healing. Based on vascular studies, patient to see Dr. Lili Mcnair for further evaluation and management of venous disease (valvular incompetency). Follow-up is scheduled in 1 week, sooner with any concerns or worsening symptoms. Luis Simons CNP Charge Capture: [id number]; [id number] Luis Simons APRN.LOI 05/01/2018 3:18 PM Addendum A procedural pause was conducted immediately prior to starting the wound debridement to verify correct patient identity using two patient identifiers: the correct site and correct procedure. Permission from the patient to perform the procedure was obtained. After providing local analgesia with Lidocaine 2% gel, a full-thickness excisional debridement of the right lower leg wound was performed and carried through the skin and subcutaneous tissue, using a sterile #15 blade, iris scissors, and forceps to remove the non-viable or devitalized tissue. The debridement extended into the viable wound margin/s to promote a healthy, active wound edge to support healing. The patient tolerated the procedure well without complications. Hemostasis was achieved with direct pressure. The wound/s was/were then copiously irrigated with sterile normal saline and dressings were applied. Charge Capture: [id number]; [id number] Tiffanie Humphrey RN, RN 02/10/2018 1:54 PM Addendum Nursing Note Dx: Venous insufficiency with ulcer with secondary lymphedema See provider note for wound description and measurements Patient has removed compression wraps yesterday at home. Dressing removed with dakins Saline 0.9% solution applied to all wounds In the presence and direction of the provider wound care as written below: Photos taken Wound vac offered and patient declines Vitamin AANDD ointment liberally applied to both lower legs Right lateral distal leg: Lido gel applied prior to the SQ debridement per provider. Wound flushed with 10 cc of saline solution. Wound culture collected. Pat dry. Dakins moistened gauze 0.25% was packed in to the wound bed. Site covered with dry max, abd pads and kerlix wrap. Tape to secure. surpress applied from behind the toes to 1 below the knee. Left lower leg: surpress applied from behind the toes to 1 below the knee. #1 Right lateral distal leg: L: 4.2 cm x W: 4.9 cm x D: 0.9 cm #2 Right med ial distal leg: Remains closed. #3 left distal calf: Remains closed. 4. Right anterior distal ace: L: 1.0 cm x W: 1.0 cm x D: 0.1 cm Zinc oxide applied to the wound. Site covered with dry max, abd pad and kerlix wrap. surepress wrap was applied from behind the toes to 1 below the knee. Taped to secure. SurePress: Foot is warm and pink before and after application. It was demonstrated to the patient how to check for adequate circulation. Patient voices understanding. If circulation becomes compromised by a change in color, increased pain, numbness or tingling to the area, the patient knows to remove the compression and elevate the leg above the heart. Measurements: Right Calf: 54.5 cm Right Ankle: 32.5 cm Left Calf: 39.5 cm Left Ankle: 31.3 cm PLAN: Return to the Wound Center in 2 x weeks to see Marlen If there is any significant change in your condition, please call the wound center to report New wound care Schedule an appointment with Dr. Dempsey for 02/14/18 EDUCATION: The patient/family was instructed how to wash the wound(s) with dial soap, rinsing with water, AND patting dry. Visual demonstration on how to apply the dressing. Signs AND symptoms of infection were reviewed: Increased redness, swelling, pain, green, yellow drainage, fever or chills all would need to be evaluated by a Physician. Patient received typed homegoing wound care instructions and has expressed intent to comply. Tiffanie Humphrey, RN, RN 02/10/2018 2:02 PM Addendum WOUND CARE INSTRUCTIONS Wound location: Right lower leg wound. Venous insufficiency bilateral lower legs Please keep dressing clean and dry 1. Wash your hands with soap and water before and after wound care. 2. Gather all supplies needed. 3. Wash wound with Dial soap and water. Pat dry. Moisturize with vitamin AANDD ointment 4. Apply dakins 0.25% moistened gauze to the wound base. 5. Cover with Dry Max and ABD pads 6. Apply surepress wrap from behind the toes to 1 below each knee 7. Change your dressing EVERY other day Left lower leg: Moisturize with vitamin AANDD ointment Apply surepress from behind the toes to 1 below the knee Tape to secure Change every other day You may purchase cast covers to wear to allow you to shower To give your wound the best chance to heal: - Eat three balanced meals daily focusing on the protein - Control swelling by elevating the extremity above your heart - exercise the extremity - Complete your wound care instructions - Vitamin C 500 mg twice daily - Multiple Vitamin Daily - Drink a protein shake daily - continue home care Report any of the following changes to the Wound Center at [phone] or go to the Emergency Department: ? Fever or chills ? Increased drainage ? Green or yellow drainage ? Foul odor ? Increased pain ? Hardness around the wound ? Redness, warmth or swelling of the surrounding tissue ? Color change to the wound PLAN: Return to the Wound Center in 2 weeks to see Marlen If there is any significant change in your condition, please call the wound center to report New wound care Schedule an appointment with Dr. Dempsey for 02/14/18 Rx: Dakins solution Luis Simons CNP/omarl Referring Provider: SELF [200] Allergies As of Date: 02/10/2018 (No Known Allergies) Date Reviewed: 02/10/2018 Reviewed by: Peter Martinez) TORY Jason - Fully Assessed Reason for Visit: Wound Check [133] Cmt: right lower leg Primary Visit Diagnosis:Venous stasis ulcer of right lower leg with edema of right lower leg (HCC) [I83.019, I83.891, L97.919, R60.9] Order(s):sodium hypochlorite (DAKIN'S SOLUTION) 0.125 % solnDakin's moistened gauze packing every other day to wound for bacterial control.Disp: 473 mLRfl: 2 WOUND CULTURE AND GRAM STAIN [SQWCUL] Order #: [id number]. #:[id number] Prescriptions as of 02/10/2018 Sig: X METOLAZONE 2.5 MG TABLET Take 2 tablets by mouth once * GABAPENTIN 300 MG CAPSULE Take 1 capsule by mouth twice* X FUROSEMIDE 40 MG TABLET Take 1 tablet by mouth twice * X SPIRONOLACTONE 25 MG TABLET Take 1 tablet by mouth twice * X METOPROLOL TARTRATE 25 MG TAB* Take 0.5 tablets by mouth twi* VITAMIN C ORAL Take 1 tablet by mouth twice * X WARFARIN 1 MG TABLET TAKE ONE TABLET BY MOUTH ONCE* SILVER SULFADIAZINE 1 % TOPIC* Apply to leg wounds as direct* ACETAMINOPHEN 500 MG TABLET Take 1,000 mg by mouth every * ASPIRIN 81 MG TABLET,DELAYED * Take 81 mg by mouth every jean* MULTIVITAMIN-IRON 9 MG-FOLIC * Take 1 tablet by mouth once d* X WARFARIN 1 MG TABLET Take 3 mg by mouth daily as d* X WARFARIN 3 MG TABLET Take 3 mg by mouth daily as d* X LISINOPRIL 2.5 MG TABLET Take 2.5 mg by mouth every ev* X OMEPRAZOLE 20 MG CAPSULE,LUIS MIGUEL* Take 20 mg by mouth once oliver* X DOCUSATE SODIUM 100 MG CAPSULE Take 100 mg by mouth once yuly* X ERGOCALCIFEROL (VITAMIN D2) 5* Take 1 capsule by mouth once * LEVOTHYROXINE 100 MCG TABLET Take 1 tablet by mouth once d* COMPOUNDED PRESCRIPTION Calcium Alginate 4x4 Dressing* SODIUM HYPOCHLORITE 0.125 % S* Dakin's moistened gauze packi* X ZINC SULFATE 220 MG TABLET Take 1 tablet by mouth once d* Problem List As Of Date 02/10/2018 Noted Resolved Gastroesophageal reflux disease without esophag*INVALID FOR* Chronic atrial fibrillation (HCC) [I48.2] INVALID FOR* Priority: B More... Pure hypercholesterolemia [E78.00] Hypertension [I10] Priority: D Acquired hypothyroidism [E03.9] Priority: F CAD (coronary artery disease) [I25.10] More... Depressive disorder [F32.9] INVALID FOR*07/18/2017 Primary osteoarthritis involving multiple joint*INVALID FOR* Lymphedema of both lower extremities [I89.0] INVALID FOR* Priority: C Mouth dryness [R68.2] INVALID FOR* Muscular weakness [M62.81] INVALID FOR* Dorsalgia [M54.9] INVALID FOR* Stented coronary artery [Z95.5] INVALID FOR* Priority: A Gastric bypass status for obesity [Z98.84] INVALID FOR* Priority: C Bilateral leg ulcer (HCC) [L97.919, L97.929] INVALID FOR* Priority: E Polyneuropathy (HCC) [G62.9] INVALID FOR* Cecal ulcer [K63.3] INVALID FOR* Acute respiratory failure with hypoxia ([facility]) [J*INVALID FOR*10/10/2017 Priority: Severe More... More... More... Respiratory failure with hypoxia (HCC) [J96.91] INVALID FOR* Priority: Severe Heart failure with preserved ejection fraction *INVALID FOR* Priority: A More... More... Requires continuous at home supplemental oxygen*INVALID FOR*01/20/2018 More... Adjustment disorder with depressed mood [F43.21]INVALID FOR* Other instructions from your clinician: WOUND CARE INSTRUCTIONS Wound location: Right lower leg wound. Venous insufficiency bilateral lower legs Please keep dressing clean and dry 1. Wash your hands with soap and water before and after wound care. 2. Gather all supplies needed. 3. Wash wound with Dial soap and water. Pat dry. Moisturize with vitamin AANDD ointment 4. Apply dakins 0.25% moistened gauze to the wound base. 5. Cover with Dry Max and ABD pads 6. Apply surepress wrap from behind the toes to 1 below each knee 7. Change your dressing EVERY other day Left lower leg: Moisturize with vitamin AANDD ointment Apply surepress from behind the toes to 1 below the knee Tape to secure Change every other day You may purchase cast covers to wear to allow you to shower To give your wound the best chance to heal: - Eat three balanced meals daily focusing on the protein - Control swelling by elevating the extremity above your heart - exercise the extremity - Complete your wound care instructions - Vitamin C 500 mg twice daily - Multiple Vitamin Daily - Drink a protein shake daily - continue home care Report any of the following changes to the Wound Center at [phone] or go to the Emergency Department: ? Fever or chills ? Increased drainage ? Green or yellow drainage ? Foul odor ? Increased pain ? Hardness around the wound ? Redness, warmth or swelling of the surrounding tissue ? Color change to the wound PLAN: Return to the Wound Center in 2 weeks to see Marlen If there is any significant change in your condition, please call the wound center to report New wound care Schedule an appointment with Dr. Dempsey for 02/14/18 Rx: Dakins solution Luis Simons GROUND SYSTEMS ENGINEER/mjl Visit Notes: >> Tiffanie (Rn) ELENA Humphrey TueFeb 10, 2018 1:12 PM Status: Addendum Nursing Note Dx: Venous insufficiency with ulcer with secondary lymphedema See provider note for wound description and measurements Patient has removed compression wraps yesterday at home. Dressing removed with dakins Saline 0.9% solution applied to all wounds In the presence and direction of the provider wound care as written below: Photos taken Wound vac offered and patient declines Vitamin AANDD ointment liberally applied to both lower legs Right lateral distal leg: Lido gel applied prior to the SQ debridement per provider. Wound flushed with 10 cc of saline solution. Wound culture collected. Pat dry. Dakins moistened gauze 0.25% was packed in to the wound bed. Site covered with dry max, abd pads and kerlix wrap. Tape to secure. surpress applied from behind the toes to 1 below the knee. Left lower leg: surpress applied from behind the toes to 1 below the knee. #1 Right lateral distal leg: L: 4.2 cm x W: 4.9 cm x D: 0.9 cm #2 Right med ial distal leg: Remains closed. #3 left distal calf: Remains closed. 4. Right anterior distal ace: L: 1.0 cm x W: 1.0 cm x D: 0.1 cm Zinc oxide applied to the wound. Site covered with dry max, abd pad and kerlix wrap. surepress wrap was applied from behind the toes to 1 below the knee. Taped to secure. SurePress: Foot is warm and pink before and after application. It was demonstrated to the patient how to check for adequate circulation. Patient voices understanding. If circulation becomes compromised by a change in color, increased pain, numbness or tingling to the area, the patient knows to remove the compression and elevate the leg above the heart. Measurements: Right Calf: 54.5 cm Right Ankle: 32.5 cm Left Calf: 39.5 cm Left Ankle: 31.3 cm PLAN: Return to the Wound Center in 2 x weeks to see Marlen If there is any significant change in your condition, please call the wound center to report New wound care Schedule an appointment with Dr. Dempsey for 02/14/18 EDUCATION: The patient/family was instructed how to wash the wound(s) with dial soap, rinsing with water, AND patting dry. Visual demonstration on how to apply the dressing. Signs AND symptoms of infection were reviewed: Increased redness, swelling, pain, green, yellow drainage, fever or chills all would need to be evaluated by a Physician. Patient received typed homegoing wound care instructions and has expressed intent to comply. Prescriptions ordered this encounter Disp Refills Start End SODIUM HYPOCHLORITE 0.125 % SOLUTION 473 * 2 02/10/2018 Sig: Dakin's moistened gauze packing every other day to wound for bacterial control. Encounter Status:Closed by LUIS SIMONS on 02/20/18 PROCEDURE Observed: 02/10/2018 Status: COMPLETED Source: [facility] 1:00 PM [facility] OTHER [place] REPOSITORY HNO ID: [id number] Author: Luis Lyles (Tray Room Worker) Carla Service: (none) Author Type: Nurse Practitioner Type: Procedures Filed: 05/01/2018 3:18 PM Note Text: A procedural pause was conducted immediately prior to starting the wound debridement to verify correct patient identity using two patient identifiers: the correct site and correct procedure. Permission from the patient to perform the procedure was obtained. After providing local analgesia with Lidocaine 2% gel, a full-thickness excisional debridement of the right lower leg wound was performed and carried through the skin and subcutaneous tissue, using a sterile #15 blade, iris scissors, and forceps to remove the non-viable or devitalized tissue. The debridement extended into the viable wound margin/s to promote a healthy, active wound edge to support healing. The patient tolerated the procedure well without complications. Hemostasis was achieved with direct pressure. The wound/s was/were then copiously irrigated with sterile normal saline and dressings were applied. Charge Capture: [id number]; [id number] PROTIME Collected: 02/07/2018 Status: F Source: [facility] 1:30 PM [facility] [place] REPOSITORY TYPE CODE TESTS RESULT OUT OF RANGE REFERENCE UNITS LAB PSEC 9.7-13.0 sec High PT Sec 14.1 LAB INR 0.9-1.3 High PT INR 1.4 Result Comment: Vitamin K Antagonist (VKA) Therapeutic Range: INR 2 to 3 (Target INR of 2.5) Note: For patients treated with VKA drugs, such as warfarin, the [place] [employer] 2012 Guideline recommends a therapeutic INR range of 2 to 3 (target INR of 2.5). This recommendation includes high-risk patients with antiphospholipid syndrome with previous arterial or venous thromboembolism, current-generation mechanical or bioprosthetic aortic heart valve replacement. Note: Patients with mechanical aortic valve replacement and additional risk factors for thromboembolic events (atrial fibrillation, previous thromboembolism, LV dysfunction, hypercoagulable conditions) or an older generation mechanical AVR (i.e., ball in-Cage) or any mechanical MVR should have a INR therapeutic range of 2.5 to 3.5 (target INR of 3). Shweta GH, et al. Chest 2012, 141:7S-47S Genevieve RA, et al. [facility] 2017, 70: 252-289 Performed By: #### PT, BMP #### [facility] [address] [place] [id number] BASIC METABOLIC PANL Collected: 02/07/2018 Status: F Source: [facility] 1:30 PM [facility] REPOSITORY TYPE CODE TESTS RESULT OUT OF REFERENCE UNITS RANGE LAB GLU 74-99 mg/dL Glucose 92 Result Comment: The [place] Diabetes Association (ADA) provides guidance for cutoff values for fasting glucose and random glucose. The ADA defines fasting as no caloric intake for at least 8 hours. Fas ting plasma glucose results between 100 to 125 mg/dL indicate increased risk for diabetes (prediabetes). Fasting plasma glucose results greater than or equal to 126 mg/dL meet the criteria for diagnosis of diabetes. In the absence of unequivocal hyperglycemia, results should be confirmed by repeat testing. In a patient with classic symptoms of hyperglycemia or hyperglycemic crisis, random plasma glucose results greater than or equal to 200 mg/dL meet the criteria for diagnosis of diabetes. Reference: Standards of Medical Care in Diabetes 2016, [place] [employer]. Diabetes Care. 2016.39(Suppl 1). LAB BUN 7-21 mg/dL BUN High 24 LAB CRET 0.58-0.96 mg/dL Creatinine 0.95 LAB NA 136-144 mmol/L Low Sodium 135 LAB K 3.7-5.1 mmol/L Potassium 4.3 LAB CL 97-105 mmol/L Chloride 97 LAB CO2 22-30 mmol/L CO2 27 LAB AGAP 9-18 mmol/L Anion Gap 11 LAB CA 8.5-10.2 mg/dL Calcium, Total 8.6 LAB GFRAA eGFR- Amer. >60 LAB GFRNAA . eGFR-All Other Races 56 Result Comment: eGFR (Estimated GFR) Units of measure: mL/min/1.73 meters squared eGFR is derived from the reexpressed MDRD Study equation using the following parameters: serum creatinine, age, gender and race. The creatinine assay has been calibrated to be traceable to IDMS. An eGFR <60 mL/min/1.73m2 for >3 months is consistent with chronic kidney disease. Refer to KDOQI guidelines for clinical interpretation. In patients with unstable renal function, e.g. those with acute kidney injury, the eGFR may not accurately reflect actual GFR. Performed By: #### PT, BMP #### [facility] [address] [address] PROGRESS Observed: 02/07/2018 Status: COMPLETED Source: [facility] 12:43 PM [facility] OTHER CAMPUS REPOSITORY HNO ID: [id number] Author: Corey Mckeon Service: (none) Author Type: Physician Type: Progress Notes Filed: 02/07/2018 12:47 PM Note Text: PERTINENT CARDIAC HISTORY ASHD - PCI LAD 2012, PCI Cx 2014 Takatsubo? HL HTN Lymphedema CHF Atrial fib Bilateral radial artery occlusion? ADHERENCE TO GUIDELINES ANKIT-I or ARB for HF with prior LVEF<40 (NQF 0081) - N/A ASA or Plavix for ASHD (NQF 0067) - met Beta louann for ASHD with prior CO or prior LVEF<40 (NQF 0070) - met Beta louann for HF with prior LVEF<40 (NQF 0083) - N/A ANKIT-I or ARB for ASHD with DM or prior LVEF<40 (NQF 0066) - met Statin therapy for ASHD or FHL or DM - to be started BMI documented and plan if >25 (NQF 0421) - lifestyle recommendation form Tobacco use screening and referral (NQF 0028) - lifestyle recommendation form Recommendation for whole food, plant based diet - lifestyle recommendation form CLINICAL IMPRESSION/PLAN: Rosa Beltran had another admission for IV diuresis. Her volume status is better now. It is very difficult to tell what her true volume status is, given that she has pulmonary hypertension, elements of right ventricular dysfunction, severe lymphedema. She will have basic profile today. I would push her diuretics until she becomes obviously prerenal and then back off slightly. Echocardiogram will be done today to assess her filling pressures and pulmonary hypertension and to evaluate for the possibility that she has developed more right heart failure. I will tentatively see her as originally scheduled. Written and verbal health teaching given to patient, patient verbalizes understanding and agrees with treatment plan. DIAGNOSIS FOR VISIT: CHF ASHD HISTORY OF PRESENT ILLNESS Rosa Beltran returns for problem follow-up visit. She has been readmitted for intravenous diuretic. She reportedly lost 11 pounds. Unclear whether any further studies were done. She is now back home. Her Zaroxolyn was recently increased, although no medication changes were reportedly made at the time of her hospital discharge. She's noted occasional shortness of breath. Orthopnea has improved. She has noted a decrease in edema. She's had no active weeping. She denies syncope, TIAs, amaurosis or claudication. ALLERGIES: ALLERGIES No Known Allergies CURRENT OUTPATIENT MEDICATIONS: metOLAzone (ZAROXOLYN) 2.5 mg tablet Take 2 tablets by mouth once daily. furosemide (LASIX) 40 mg tablet Take 1 tablet by mouth twice daily. spironolactone (ALDACTONE) 25 mg tablet Take 1 tablet by mouth twice daily. ASCORBIC ACID (VITAMIN C ORAL) Take 1 tablet by mouth twice daily. warfarin (COUMADIN) 1 mg tablet TAKE ONE TABLET BY MOUTH ONCE DAILY OR DIRECTED WITH THE 3MG TABLETS silver sulfADIAZINE (SILVADENE) 1 % cream Apply to leg wounds as directed. acetaminophen (TYLENOL) 500 mg tablet Take 1,000 mg by mouth every 8 hours as needed. aspirin, enteric coated (ASPIRIN, ENTERIC COATED) 81 mg EC tablet Take 81 mg by mouth every evening. warfarin (COUMADIN) 1 mg tablet Take 1 mg by mouth daily as directed. As of 12/19/17: patient is only using 3mg tablets taking 1 x 3 mg tablet every day of the week. warfarin (COUMADIN) 3 mg tablet Take 3 mg by mouth daily as directed. As of 12/19/17: Patient takes 1 tablet (3mg) by mouth once daily every day of the week. lisinopril (ZESTRIL) 2.5 mg tablet Take 2.5 mg by mouth every evening. omeprazole (PRILOSEC) 20 mg capsule Take 20 mg by mouth once daily. docusate sodium (COLACE) 100 mg capsule Take 100 mg by mouth once daily as needed. therapeutic multivitamin w/ iron (THERAGRAN-M) 9 mg iron-400 mcg tablet Take 1 tablet by mouth once daily. ergocalciferol, vitamin D2, (DRISDOL) 50,000 unit capsule Take 1 capsule by mouth once each week. levothyroxine (LEVOXYL) 100 mcg tablet Take 1 tablet by mouth once daily. Take on empty stomach. For Thyroid. gabapentin (NEURONTIN) 300 mg capsule Take 1 capsule by mouth twice daily. COMPOUNDED PRESCRIPTION Calcium Alginate 4x4 Dressing, change daily Dx: Blister left leg with infection S80.822A, L08.9; Lymphedema I89.0. Wound dimensions: 4 x 3 cm metoprolol tartrate, short acting, (LOPRESSOR) 25 mg tablet Take 0.5 tablets by mouth twice daily. Zinc Sulfate 220 mg tab Take 1 tablet by mouth once daily for 14 days. PHYSICAL EXAMINATION: VITAL SIGNS: BP 140/72 Pulse 60 Chest: Clear to percussion and auscultation. Trachea is midline. Air entry is equal. Cardiac: Irregularly irregular rhythm. S1 and S2 are normal. PMI is nondisplaced. There is a soft systolic ejection murmur. Carotids are brisk without bruits. JVP is less than 10 cm. Abdomen: Soft and nontender. There are no pulsatile masses or bruits. No liver enlargement. Bowel sounds are active. Extremities: 3 plus pitting edema with concomitant lymphedema. There is no weeping. Pulses are not palpable due to the edema. Recent labs were reviewed and are scheduled for repeat. Electronically Signed: Corey Mckeon MD February 07, 2018 12:43 PM CC: Mani Newman MD CNOV Observed: 02/07/2018 Status: COMPLETED Source: [facility] 11:30 AM [facility] OTHER [facility]AMP[facility] REPOSITORY Office Visit ([facility]) ROSA BELTRAN ([id number]) 1935 F Date Time Provider Department 02/07/18 11:30 AM COREY MCKEON AGCARDWST During your visit today, we recorded the following information about you: Pulse Blood pressure 60/minute 140/72 Corey Mckeon MD 02/07/2018 12:47 PM Signed PERTINENT CARDIAC HISTORY ASHD - PCI LAD 2012, PCI Cx 2014 Takatsubo? HL HTN Lymphedema CHF Atrial fib Bilateral radial artery occlusion? ADHERENCE TO GUIDELINES ANKIT-I or ARB for HF with prior LVEFANDlt;40 (NQF 0081) - N/A ASA or Plavix for ASHD (NQF 0067) - met Beta louann for ASHD with prior CO or prior LVEFANDlt;40 (NQF 0070) - met Beta louann for HF with prior LVEFANDlt;40 (NQF 0083) - N/A ANKIT-I or ARB for ASHD with DM or prior LVEFANDlt;40 (NQF 0066) - met Statin therapy for ASHD or FHL or DM - to be started BMI documented and plan if ANDgt;25 (NQF 0421) - lifestyle recommendation form Tobacco use screening and referral (NQF 0028) - lifestyle recommendation form Recommendation for whole food, plant based diet - lifestyle recommendation form CLINICAL IMPRESSION/PLAN: Rosa Beltran had another admission for IV diuresis. Her volume status is better now. It is very difficult to tell what her true volume status is, given that she has pulmonary hypertension, elements of right ventricular dysfunction, severe lymphedema. She will have basic profile today. I would push her diuretics until she becomes obviously prerenal and then back off slightly. Echocardiogram will be done today to assess her filling pressures and pulmonary hypertension and to evaluate for the possibility that she has developed more right heart failure. I will tentatively see her as originally scheduled. Written and verbal health teaching given to patient, patient verbalizes understanding and agrees with treatment plan. DIAGNOSIS FOR VISIT: CHF ASHD HISTORY OF PRESENT ILLNESS Rosa Beltran returns for problem follow-up visit. She has been readmitted for intravenous diuretic. She reportedly lost 11 pounds. Unclear whether any further studies were done. She is now back home. Her Zaroxolyn was recently increased, although no medication changes were reportedly made at the time of her hospital discharge. She's noted occasional shortness of breath. Orthopnea has improved. She has noted a decrease in edema. She's had no active weeping. She denies syncope, TIAs, amaurosis or claudication. ALLERGIES: ALLERGIES No Known Allergies CURRENT OUTPATIENT MEDICATIONS: metOLAzone (ZAROXOLYN) 2.5 mg tablet Take 2 tablets by mouth once daily. furosemide (LASIX) 40 mg tablet Take 1 tablet by mouth twice daily. spironolactone (ALDACTONE) 25 mg tablet Take 1 tablet by mouth twice daily. ASCORBIC ACID (VITAMIN C ORAL) Take 1 tablet by mouth twice daily. warfarin (COUMADIN) 1 mg tablet TAKE ONE TABLET BY MOUTH ONCE DAILY OR DIRECTED WITH THE 3MG TABLETS silver sulfADIAZINE (SILVADENE) 1 % cream Apply to leg wounds as directed. acetaminophen (TYLENOL) 500 mg tablet Take 1,000 mg by mouth every 8 hours as needed. aspirin, enteric coated (ASPIRIN, ENTERIC COATED) 81 mg EC tablet Take 81 mg by mouth every evening. warfarin (COUMADIN) 1 mg tablet Take 1 mg by mouth daily as directed. As of 12/19/17: patient is only using 3mg tablets taking 1 x 3 mg tablet every day of the week. warfarin (COUMADIN) 3 mg tablet Take 3 mg by mouth daily as directed. As of 12/19/17: Patient takes 1 tablet (3mg) by mouth once daily every day of the week. lisinopril (ZESTRIL) 2.5 mg tablet Take 2.5 mg by mouth every evening. omeprazole (PRILOSEC) 20 mg capsule Take 20 mg by mouth once daily. docusate sodium (COLACE) 100 mg capsule Take 100 mg by mouth once daily as needed. therapeutic multivitamin w/ iron (THERAGRAN-M) 9 mg iron-400 mcg tablet Take 1 tablet by mouth once daily. ergocalciferol, vitamin D2, (DRISDOL) 50,000 unit capsule Take 1 capsule by mouth once each week. levothyroxine (LEVOXYL) 100 mcg tablet Take 1 tablet by mouth once daily. Take on empty stomach. For Thyroid. gabapentin (NEURONTIN) 300 mg capsule Take 1 capsule by mouth twice daily. COMPOUNDED PRESCRIPTION Calcium Alginate 4x4 Dressing, change daily Dx: Blister left leg with infection S80.822A, L08.9; Lymphedema I89.0. Wound dimensions: 4 x 3 cm metoprolol tartrate, short acting, (LOPRESSOR) 25 mg tablet Take 0.5 tablets by mouth twice daily. Zinc Sulfate 220 mg tab Take 1 tablet by mouth once daily for 14 days. PHYSICAL EXAMINATION: VITAL SIGNS: BP 140/72 Pulse 60 Chest: Clear to percussion and auscultation. Trachea is midline. Air entry is equal. Cardiac: Irregularly irregular rhythm. S1 and S2 are normal. PMI is nondisplaced. There is a soft systolic ejection murmur. Carotids are brisk without bruits. JVP is less than 10 cm. Abdomen: Soft and nontender. There are no pulsatile masses or bruits. No liver enlargement. Bowel sounds are active. Extremities: 3 plus pitting edema with concomitant lymphedema. There is no weeping. Pulses are not palpable due to the edema. Recent labs were reviewed and are scheduled for repeat. Electronically Signed: Corey Mckeon MD February 07, 2018 12:43 PM CC: Mani Newman MD Referring Provider: COREY MCKEON [[id number]] Allergies As of Date: 02/07/2018 (No Known Allergies) Date Reviewed: 02/03/2018 Reviewed by: Carolina Vega Limnology Teacher - Fully Assessed Reason for Visit: Established Patient [175] Cmt: Hospital follow-up Primary Visit Diagnosis:ASHD (arteriosclerotic heart disease) [I25.10] Other Visit Diagnosis:Chronic diastolic CHF (congestive heart failure) ([facility]) [I50.32] Order(s):BASIC METABOLIC PNL [SQBMP] Order #: [id number] FUTURE Prescriptions as of 02/07/2018 Sig: METOLAZONE 2.5 MG TABLET Take 2 tablets by mouth once * FUROSEMIDE 40 MG TABLET Take 1 tablet by mouth twice * SPIRONOLACTONE 25 MG TABLET Take 1 tablet by mouth twice * VITAMIN C ORAL Take 1 tablet by mouth twice * WARFARIN 1 MG TABLET TAKE ONE TABLET BY MOUTH ONCE* SILVER SULFADIAZINE 1 % TOPIC* Apply to leg wounds as direct* ACETAMINOPHEN 500 MG TABLET Take 1,000 mg by mouth every * ASPIRIN 81 MG TABLET,DELAYED * Take 81 mg by mouth every jean* WARFARIN 1 MG TABLET Take 1 mg by mouth daily as d* WARFARIN 3 MG TABLET Take 3 mg by mouth daily as d* LISINOPRIL 2.5 MG TABLET Take 2.5 mg by mouth every ev* OMEPRAZOLE 20 MG CAPSULE,LUIS MIGUEL* Take 20 mg by mouth once oliver* DOCUSATE SODIUM 100 MG CAPSULE Take 100 mg by mouth once yuly* MULTIVITAMIN-IRON 9 MG-FOLIC * Take 1 tablet by mouth once d* ERGOCALCIFEROL (VITAMIN D2) 5* Take 1 capsule by mouth once * LEVOTHYROXINE 100 MCG TABLET Take 1 tablet by mouth once d* GABAPENTIN 300 MG CAPSULE Take 1 capsule by mouth twice* COMPOUNDED PRESCRIPTION Calcium Alginate 4x4 Dressing* METOPROLOL TARTRATE 25 MG TAB* Take 0.5 tablets by mouth twi* ZINC SULFATE 220 MG TABLET Take 1 tablet by mouth once d* Medication notes this encounter ZINC SULFATE 220 MG TABLET >> Ethan Monsalve RN 02/07/2018 11:44 AM >> ETHAN MONSALVE RN e Feb 07, 2018 11:44 AM no longer taking Problem List As Of Date 02/07/2018 Noted Resolved Gastroesophageal reflux disease without esophag*INVALID FOR* Chronic atrial fibrillation (HCC) [I48.2] INVALID FOR* Priority: B Pure hypercholesterolemia [E78.00] Hypertension [I10] Priority: D Acquired hypothyroidism [E03.9] Priority: F CAD (coronary artery disease) [I25.10] More... 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 More... More... Respiratory failure with hypoxia (HCC) [J96.91] INVALID FOR* Priority: Severe Heart failure with preserved ejection fraction *INVALID FOR* Priority: A More... Requires continuous at home supplemental oxygen*INVALID FOR*01/20/2018 More... Adjustment disorder with depressed mood [F43.21]INVALID FOR* Encounter Status:Closed by COREY MCKEON MD on 02/07/18 PROGRESS Observed: 02/03/2018 Status: COMPLETED Source: [place] 11:31 AM [facility] [place] REPOSITORY HNO ID: [id number] Author: Jina (Loi) Older Service: (none) Author Type: Nurse Practitioner Type: Progress Notes Filed: 02/03/2018 1:36 PM Note Text: CC: Patient presents with: [facility] Follow up HPI Rosa Beltran is a 82 year old female who presents today for hospital follow-up. Reason for visit: 10 lb weight gain and SOB Which facility: [facility] Date of visit: 01/25/18 to 01/27/18 Diagnosis: Acute diastolic heart failure Testing done: Labs relatively normal, chest x-ray Treatment given: Lasix drip. Lost 13 lbs during admission. Current symptoms: Increased SOB x 1 week. Wears oxygen as needed, has been using more than usual this past week. No wheezing or productive cough. Weight has not increased since discharge per patient. No increase in swelling. No chest pain, heart palpitations. REVIEW OF SYSTEMS General: no fevers, no chills and no night sweats PAST MEDICAL HISTORY Diagnosis Date - Acquired hypothyroidism - Acute respiratory failure with hypoxia (HCC) 09/30/2017 - Atrial fibrillation (HCC) - CAD (coronary artery disease) Dr. Brenda Awan Hts, Promus element KIMMY LAD 11/20/2012, Stress test 04/2014 inferoapical reversible ischemia,small LVEF 48- 50%, LHC 12/2014 L main-normal, LAD widely patent, Cx diffuse mild luminal irregularities with 80%focal stenosis distal, RCA dominant with minimal luminal irregularities. 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 - Pure hypercholesterolemia - Rheumatoid arthritis ([facility]) 2007 - Sleep apnea - Stented coronary artery 12/29/2016 PAST SURGICAL HISTORY Procedure Laterality Date - CC CORONARY STENT 11/20/2012 KIMMY LAD - CC CORONARY STENT 12/20/2014 KIMMY, Cfx - SECTION HX - [facility]10/[facility], Nonspecific cecal ulcer - GASTRIC BYPASS HX 1986 - HERNIA REPAIR HX 1987; 1989 - PAST SURGICAL HISTORY OF Right 09/2015 right tibia fracture ORIF - PAST SURGICAL HISTORY OF Right 01/20/2016 Removal of hardware, right tibia - TOTAL KNEE REPLACEMENT Right 2003 [facility] Gen. - TOTAL KNEE REPLACEMENT Left 2004 [facility] Gen. ALLERGIES Review of patient's allergies indicates no known allergies. MEDICATIONS furosemide (LASIX) 40 mg tablet Take 1 tablet by mouth twice daily. spironolactone (ALDACTONE) 25 mg tablet Take 1 tablet by mouth twice daily. metoprolol tartrate, short acting, (LOPRESSOR) 25 mg tablet Take 0.5 tablets by mouth twice daily. ASCORBIC ACID (VITAMIN C ORAL) Take 1 tablet by mouth twice daily. metOLAzone (ZAROXOLYN) 2.5 mg tablet Take 1 tablet by mouth once daily. warfarin (COUMADIN) 1 mg tablet TAKE ONE TABLET BY MOUTH ONCE DAILY OR DIRECTED WITH THE 3MG TABLETS silver sulfADIAZINE (SILVADENE) 1 % cream Apply to leg wounds as directed. Zinc Sulfate 220 mg tab Take 1 tablet by mouth once daily for 14 days. acetaminophen (TYLENOL) 500 mg tablet Take 1,000 mg by mouth every 8 hours as needed. aspirin, enteric coated (ASPIRIN, ENTERIC COATED) 81 mg EC tablet Take 81 mg by mouth every evening. warfarin (COUMADIN) 1 mg tablet Take 1 mg by mouth daily as directed. As of 12/19/17: patient is only using 3mg tablets taking 1 x 3 mg tablet every day of the week. warfarin (COUMADIN) 3 mg tablet Take 3 mg by mouth daily as directed. As of 12/19/17: Patient takes 1 tablet (3mg) by mouth once daily every day of the week. lisinopril (ZESTRIL) 2.5 mg tablet Take 2.5 mg by mouth every evening. omeprazole (PRILOSEC) 20 mg capsule Take 20 mg by mouth once daily. docusate sodium (COLACE) 100 mg capsule Take 100 mg by mouth once daily as needed. therapeutic multivitamin w/ iron (THERAGRAN-M) 9 mg iron-400 mcg tablet Take 1 tablet by mouth once daily. ergocalciferol, vitamin D2, (DRISDOL) 50,000 unit capsule Take 1 capsule by mouth once each week. levothyroxine (LEVOXYL) 100 mcg tablet Take 1 tablet by mouth once daily. Take on empty stomach. For Thyroid. gabapentin (NEURONTIN) 300 mg capsule Take 1 capsule by mouth twice daily. COMPOUNDED PRESCRIPTION Calcium Alginate 4x4 Dressing, change daily Dx: Blister left leg with infection S80.822A, L08.9; Lymphedema I89.0. Wound dimensions: 4 x 3 cm No family history on file. Social History Substance Use Topics - Smoking status: Passive Smoke Exposure - Never Smoker - Smokeless tobacco: Never Used Comment: smoked for 40 years - Alcohol use No PHYSICAL EXAM BP 150/100 Pulse 75 Temp 36.6 ?C (97.9 ?F) (Temporal Artery) Resp 20 Wt 95.7 kg (211 lb) SpO2 (!) 83% BMI 36.22 kg/m2. Discharge weight 01/27 207 lbs General Appearance: in no acute distress, alert Eyes: conjunctiva pink and moist, no icterus, sclera white, non-injected Oropharynx: moist Lungs: Lungs clear to auscultation. No wheezing, rhonchi, rales Heart: Irregularly irregular rhythm. S1 and S2 are normal. PMI is nondisplaced. Soft systolic murmur. Ext: 3 plus pitting lymphedema. There are dressings which were not removed. No drainage. Pulses cannot be felt due to edema. No clubbing or cyanosis. ASSESSMENT/PLAN: 1. Acute on chronic heart failure, unspecified heart failure type (HCC) - ICD9: 428.0, ICD10: I50.9 Increase SOB, pulse ox 88% on 3 liters oxygen and increase in weight. Patient reportedly taking all medications as prescribed. Called Dr. Mckeon to discuss. Recommends increasing Zaroxolyn to 5 mg daily and follow-up with him next Tuesday for evaluation and echocardiogram. His office will call her to schedule appointment time. Discussed with patient and written in detail in patient instructions. Reviewed instructions with her on the AVS. Patient verbalized understanding multiple times. Advised ER or call 911 for worsening symptoms. Prescription instructions reviewed with patient as applicable. Potential red flag symptoms discussed with the patient. Reviewed appropriate action plan to take if red flag symptoms occur. Patient agreeable to treatment plan. Jina Ny APRN.CNP CNOV Observed: 02/03/2018 Status: COMPLETED Source: [facility] 11:20 AM [facility] REPOSITORY Office Visit (INTMWS) ROSA BELTRAN ([id number]) 1935 F Date Time Provider Department 02/03/18 11:20 AM JINA [place] (LOI) IN[facility] During your visit today, we recorded the following information about you: Temperature Pulse Respiration Blood pressure 97.9 degrees 75/minute 20/minute 142/72 Weight 95.7 kg Jina Ny APRN.CNP 02/03/2018 1:36 PM Signed CC: Patient presents with: [facility] Follow up HPI Rosa Beltran is a 82 year old female who presents today for hospital follow-up. Reason for visit: 10 lb weight gain and SOB Which facility: [facility] Date of visit: 01/25/18 to 01/27/18 Diagnosis: Acute diastolic heart failure Testing done: Labs relatively normal, chest x-ray Treatment given: Lasix drip. Lost 13 lbs during admission. Current symptoms: Increased SOB x 1 week. Wears oxygen as needed, has been using more than usual this past week. No wheezing or productive cough. Weight has not increased since discharge per patient. No increase in swelling. No chest pain, heart palpitations. REVIEW OF SYSTEMS General: no fevers, no chills and no night sweats PAST MEDICAL HISTORY Diagnosis Date - Acquired hypothyroidism - Acute respiratory failure with hypoxia (HCC) 09/30/2017 - Atrial fibrillation ([facility]) - CAD (coronary artery disease) Dr. Brenda Awan Hts, Promus element KIMMY LAD 11/20/2012, Stress test 04/2014 inferoapical reversible ischemia,small LVEF 48-50%, LHC 12/2014 L main-normal, LAD widely patent, Cx diffuse mild luminal irregularities with 80%focal stenosis distal, RCA dominant with minimal luminal irregularities. 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 - Pure hypercholesterolemia - Rheumatoid arthritis ([facility]) 2007 - Sleep apnea - Stented coronary artery 12/29/2016 PAST SURGICAL HISTORY Procedure Laterality Date - CC CORONARY STENT 11/20/2012 KIMMY LAD - CC CORONARY STENT 12/20/2014 KIMMY, Cfx - SECTION HX - COLONOSCOPY 06/10/2017 [facility], Nonspecific cecal ulcer - GASTRIC BYPASS HX 1986 - HERNIA REPAIR HX 1987; 1989 - PAST SURGICAL HISTORY OF Right 09/2015 right tibia fracture ORIF - PAST SURGICAL HISTORY OF Right 01/20/2016 Removal of hardware, right tibia - TOTAL KNEE REPLACEMENT Right 2003 [facility] Gen. - TOTAL KNEE REPLACEMENT Left 2004 [facility] Gen ALLERGIES Review of patient's allergies indicates no known allergies. MEDICATIONS furosemide (LASIX) 40 mg tablet Take 1 tablet by mouth twice daily. spironolactone (ALDACTONE) 25 mg tablet Take 1 tablet by mouth twice daily. metoprolol tartrate, short acting, (LOPRESSOR) 25 mg tablet Take 0.5 tablets by mouth twice daily. ASCORBIC ACID (VITAMIN C ORAL) Take 1 tablet by mouth twice daily. metOLAzone (ZAROXOLYN) 2.5 mg tablet Take 1 tablet by mouth once daily. warfarin (COUMADIN) 1 mg tablet TAKE ONE TABLET BY MOUTH ONCE DAILY OR DIRECTED WITH THE 3MG TABLETS silver sulfADIAZINE (SILVADENE) 1 % cream Apply to leg wounds as directed. Zinc Sulfate 220 mg tab Take 1 tablet by mouth once daily for 14 days. acetaminophen (TYLENOL) 500 mg tablet Take 1,000 mg by mouth every 8 hours as needed. aspirin, enteric coated (ASPIRIN, ENTERIC COATED) 81 mg EC tablet Take 81 mg by mouth every evening. warfarin (COUMADIN) 1 mg tablet Take 1 mg by mouth daily as directed. As of 12/19/17: patient is only using 3mg tablets taking 1 x 3 mg tablet every day of the week. warfarin (COUMADIN) 3 mg tablet Take 3 mg by mouth daily as directed. As of 12/19/17: Patient takes 1 tablet (3mg) by mouth once daily every day of the week. lisinopril (ZESTRIL) 2.5 mg tablet Take 2.5 mg by mouth every evening. omeprazole (PRILOSEC) 20 mg capsule Take 20 mg by mouth once daily. docusate sodium (COLACE) 100 mg capsule Take 100 mg by mouth once daily as needed. therapeutic multivitamin w/ iron (THERAGRAN-M) 9 mg iron-400 mcg tablet Take 1 tablet by mouth once daily. ergocalciferol, vitamin D2, (DRISDOL) 50,000 unit capsule Take 1 capsule by mouth once each week. levothyroxine (LEVOXYL) 100 mcg tablet Take 1 tablet by mouth once daily. Take on empty stomach. For Thyroid. gabapentin (NEURONTIN) 300 mg capsule Take 1 capsule by mouth twice daily. COMPOUNDED PRESCRIPTION Calcium Alginate 4x4 Dressing, change daily Dx: Blister left leg with infection S80.822A, L08.9; Lymphedema I89.0. Wound dimensions: 4 x 3 cm No family history on file. Social History Substance Use Topics - Smoking status: Passive Smoke Exposure - Never Smoker - Smokeless tobacco: Never Used Comment: smoked for 40 years - Alcohol use No PHYSICAL EXAM BP 150/100 Pulse 75 Temp 36.6 ?C (97.9 ?F) (Temporal Artery) Resp 20 Wt 95.7 kg (211 lb) SpO2 (!) 83% BMI 36.22 kg/m2. Discharge weight 01/27 207 lbs General Appearance: in no acute distress, alert Eyes: conjunctiva pink and moist, no icterus, sclera white, non-injected Oropharynx: moist Lungs: Lungs clear to auscultation. No wheezing, rhonchi, rales Heart: Irregularly irregular rhythm. S1 and S2 are normal. PMI is nondisplaced. Soft systolic murmur. Ext: 3 plus pitting lymphedema. There are dressings which were not removed. No drainage. Pulses cannot be felt due to edema. No clubbing or cyanosis. ASSESSMENT/PLAN: 1. Acute on chronic heart failure, unspecified heart failure type (HCC) - ICD9: 428.0, ICD10: I50.9 Increase SOB, pulse ox 88% on 3 liters oxygen and increase in weight. Patient reportedly taking all medications as prescribed. Called Dr. Mckeon to discuss. Recommends increasing Zaroxolyn to 5 mg daily and follow-up with him next Tuesday for evaluation and echocardiogram. His office will call her to schedule appointment time. Discussed with patient and written in detail in patient instructions. Reviewed instructions with her on the AVS. Patient verbalized understanding multiple times. Advised ER or call 911 for worsening symptoms. Prescription instructions reviewed with patient as applicable. Potential red flag symptoms discussed with the patient. Reviewed appropriate action plan to take if red flag symptoms occur. Patient agreeable to treatment plan. TANYA Johnson APRN.CNP 02/03/2018 12:[address] Mckeon would like to see you next Tuesday, late morning. They will call you to schedule appointment Increase Metolazone (Zaroxolyn) to 5 mg daily ( take two of the 2.5 mg tabs), continue with this until you see Dr. Mckeon Go to ER if your symptoms worsen Referring Provider: SELF [[id number]] Allergies As of Date: 02/03/2018 (No Known Allergies) Date Reviewed: 02/03/2018 Reviewed by: Carolina Vega Limnology Teacher - Fully Assessed Reason for Visit: [facility] Follow up [Other] Primary Visit Diagnosis:Acute on chronic heart failure, unspecified heart failure type (HCC) [I50.9] Prescriptions as of 02/03/2018 Sig: FUROSEMIDE 40 MG TABLET Take 1 tablet by mouth twice * SPIRONOLACTONE 25 MG TABLET Take 1 tablet by mouth twice * METOPROLOL TARTRATE 25 MG TAB* Take 0.5 tablets by mouth twi* VITAMIN C ORAL Take 1 tablet by mouth twice * METOLAZONE 2.5 MG TABLET Take 1 tablet by mouth once d* WARFARIN 1 MG TABLET TAKE ONE TABLET BY MOUTH ONCE* SILVER SULFADIAZINE 1 % TOPIC* Apply to leg wounds as direct* ZINC SULFATE 220 MG TABLET Take 1 tablet by mouth once d* ACETAMINOPHEN 500 MG TABLET Take 1,000 mg by mouth every * ASPIRIN 81 MG TABLET,DELAYED * Take 81 mg by mouth every jean* WARFARIN 1 MG TABLET Take 1 mg by mouth daily as d* WARFARIN 3 MG TABLET Take 3 mg by mouth daily as d* LISINOPRIL 2.5 MG TABLET Take 2.5 mg by mouth every ev* OMEPRAZOLE 20 MG CAPSULE,LUIS MIGUEL* Take 20 mg by mouth once oliver* DOCUSATE SODIUM 100 MG CAPSULE Take 100 mg by mouth once yuly* MULTIVITAMIN-IRON 9 MG-FOLIC * Take 1 tablet by mouth once d* ERGOCALCIFEROL (VITAMIN D2) 5* Take 1 capsule by mouth once * LEVOTHYROXINE 100 MCG TABLET Take 1 tablet by mouth once d* GABAPENTIN 300 MG CAPSULE Take 1 capsule by mouth twice* COMPOUNDED PRESCRIPTION Calcium Alginate 4x4 Dressing* Problem List As Of Date 02/03/2018 Noted Resolved Gastroesophageal reflux disease without esophag*INVALID FOR* Chronic atrial fibrillation (HCC) [I48.2] INVALID FOR* Priority: B Pure hypercholesterolemia [E78.00] Hypertension [I10] Priority: D Acquired hypothyroidism [E03.9] Priority: F CAD (coronary artery disease) [I25.10] More... 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 More... More... Respiratory failure with hypoxia (HCC) [J96.91] INVALID FOR* Priority: Severe Heart failure with preserved ejection fraction *INVALID FOR* Priority: A More... Requires continuous at home supplemental oxygen*INVALID FOR*01/20/2018 More... Adjustment disorder with depressed mood [F43.21]INVALID FOR* Other instructions from your clinician: Dr. Mckeon would like to see you next Tuesday, late morning. They will call you to schedule appointment Increase Metolazone (Zaroxolyn) to 5 mg daily ( take two of the 2.5 mg tabs), continue with this until you see Dr. Mckeon Go to ER if your symptoms worsen Encounter Status:Closed by JINA [place] CNP on 02/03/18 PROGRESS Observed: 01/28/2018 Status: COMPLETED Source: [facility] 9:05 AM [facility] REPOSITORY HNO ID: [id number] Author: Mani Newman Service: (none) Author Type: Physician Type: Progress Notes Filed: 01/28/2018 9:08 AM Note Text: Addendum: It seems patient had not filled furosemide at [facility] since April 2017. Medication adherence needs monitored. Noted patient was referred to ER last week. Mani Newman MD BMP Collected: 01/27/2018 Status: F Source: [facility] 5:21 AM [facility] REPOSITORY TYPE CODE TESTS RESULT OUT OF REFERENCE UNITS RANGE LAB 1547-9 83-110 mg/dL GLUCOSE 85 LAB NA(LOINC) 136-146 mEq/L Sodium Level 136 LAB K(LOINC) 3.5-5.1 mEq/L Potassium Level 4.3 LAB CL(LOINC) 98-107 mEq/L Chloride 98 LAB CO2(LOINC) 23-31 mEq/L CO2 High 32 LAB EBAL(LOINC mEq/L ) Electrolyte Balance 6.0 LAB BUN(LOINC) 7.0-18.0 mg/dL BUN High 32.6 LAB CRE(LOINC) 0.6-1.2 mg/dL Creatinine Lvl (s) 1.2 LAB BC(LOINC) 7-27 ratio BUN/Creatinine 27 Ratio LAB CA(LOINC) 8.4-10.2 mg/dL Low Calcium Lvl 8.3 Performed By: #### GFR, GRETCHEN #### Jermaine [address] [address] .GFR Collected: 01/27/2018 Status: F Source: [facility] 5:21 AM [facility] REPOSITORY TYPE CODE TESTS RESULT OUT OF REFERENCE UNITS RANGE LAB GFRAA(LOINC ml/min/1.73 ) sqm GFR 53 Romanian Result Comment: GFR Population mean for , Non- Americans Ages 20-29 = 116 mL/min/1.73 sq.m. Ages 30-39 = 107 mL/min/1.73 sq.m. Ages 40-49 = 99 mL/min/1.73 sq.m. Ages 50-59 = 93 mL/min/1.73 sq.m. Ages 60-69 = 85 mL/min/1.73 sq.m. Ages 70+ = 75 mL/min/1.73 sq.m. Chronic Kidney Disease: Less than 60 mL/min/1.73 square meters End Stage Renal Disease: Less than 15 mL/min/1.73 square meters LAB GFRNO(LOINC) ml/min/1.73sqm GFR Non- 44 Result Comment: GFR Population mean for , Non- Americans Ages 20-29 = 116 mL/min/1.73 sq.m. Ages 30-39 = 107 mL/min/1.73 sq.m. Ages 40-49 = 99 mL/min/1.73 sq.m. Ages 50-59 = 93 mL/min/1.73 sq.m. Ages 60-69 = 85 mL/min/1.73 sq.m. Ages 70+ = 75 mL/min/1.73 sq.m. Chronic Kidney Disease: Less than 60 mL/min/1.73 square meters End Stage Renal Disease: Less than 15 mL/min/1.73 square meters Performed By: #### GFR, GRETCHEN #### Jermaine [address] [address] PRO Collected: 01/26/2018 Status: F Source: [facility] 3:44 PM [facility] REPOSITORY TYPE CODE TESTS RESULT OUT OF REFERENCE UNITS RANGE LAB PT(LOINC) 9.8-13.5 seconds Protime High 26.6 LAB INR(LOINC) 0.9-1.2 ratio PT High International 2.6 Ratio Result Comment: Standard Dose 2.0 - 3.0 High Dose 2.5 - 3.5 The recommended therapeutic range for oral anticoagulant therapy is: LOW RISK: Prophylaxis of venous thrombosis INR: 2.0 - 3.0 Treatment of pulmonary embolism 2.0 - 3.0 Prevention of systemic embolism 2.0 - 3.0 HIGH RISK: Mechanical prosthetic valves 2.5 - 3.5 Performed By: #### PRO #### Jermaine [address] [address] .GFR Collected: 01/26/2018 Status: F Source: [facility] 5:04 AM [facility] REPOSITORY TYPE CODE TESTS RESULT OUT OF REFERENCE UNITS RANGE LAB GFRAA(LOINC ml/min/1.73 ) sqm GFR 61 Romanian Result Comment: GFR Population mean for , Non- Americans Ages 20-29 = 116 mL/min/1.73 sq.m. Ages 30-39 = 107 mL/min/1.73 sq.m. Ages 40-49 = 99 mL/min/1.73 sq.m. Ages 50-59 = 93 mL/min/1.73 sq.m. Ages 60-69 = 85 mL/min/1.73 sq.m. Ages 70+ = 75 mL/min/1.73 sq.m. Chronic Kidney Disease: Less than 60 mL/min/1.73 square meters End Stage Renal Disease: Less than 15 mL/min/1.73 square meters LAB GFRNO(LOINC) ml/min/1.73sqm GFR Non- 50 Result Comment: GFR Population mean for , Non- Americans Ages 20-29 = 116 mL/min/1.73 sq.m. Ages 30-39 = 107 mL/min/1.73 sq.m. Ages 40-49 = 99 mL/min/1.73 sq.m. Ages 50-59 = 93 mL/min/1.73 sq.m. Ages 60-69 = 85 mL/min/1.73 sq.m. Ages 70+ = 75 mL/min/1.73 sq.m. Chronic Kidney Disease: Less than 60 mL/min/1.73 square meters End Stage Renal Disease: Less than 15 mL/min/1.73 square meters Performed By: #### BMP, GFR #### [id number] [place], [place] [address] BMP Collected: 01/26/2018 Status: F Source: [facility] 5:04 AM [facility] REPOSITORY TYPE CODE TESTS RESULT OUT OF REFERENCE UNITS RANGE LAB 1547-9 83-110 mg/dL GLUCOSE 91 LAB NA(LOINC) 136-146 mEq/L Sodium Level 136 LAB K(LOINC) 3.5-5.1 mEq/L Potassium Level 4.3 LAB CL(LOINC) 98-107 mEq/L Chloride 102 LAB CO2(LOINC) 23-31 mEq/L CO2 30 LAB EBAL(LOINC mEq/L ) Electrolyte Balance 4.0 LAB BUN(LOINC) 7.0-18.0 mg/dL BUN High 25.2 LAB CRE(LOINC) 0.6-1.2 mg/dL Creatinine Lvl (s) 1.0 LAB BC(LOINC) 7-27 ratio BUN/Creatinine 25 Ratio LAB CA(LOINC) 8.4-10.2 mg/dL Calcium Lvl 8.5 Performed By: #### BMP, GFR #### [id number] [place], [place] [address] XR CHEST 2 VIEWS Observed: 01/25/2018 Status: F Source: [facility] 2:07 PM [facility] REPOSITORY ORIGINAL XR CHEST 2 VIEWS CLINICAL STATEMENT: Chest Pain, shortness of breath COMPARISON: 04/19/2017 FINDINGS:There is enlarged, similar to the prior exam. There is vascular congestion with increased interstitial and alveolar opacity, likely edema. No pleural effusion is identified. Degenerative change s are seen within the spine. The bones are osteopenic. IMPRESSION:Findings likely due to a CHF exacerbation. Interpreted By: Maria Elena Sood MD Preliminary Report By: Maria Elena Sood MD Electronically Signed By: Maria Elena oSod MD Dictated Date: 01/25/2018 2:13:54 PM Prelim Date: 01/25/2018 2:13:54 PM Sign Date: 01/25/2018 2:15:11 PM PRO Collected: 01/25/2018 Status: F Source: [facility] 1:58 PM [facility] REPOSITORY TYPE CODE TESTS RESULT OUT OF REFERENCE UNITS RANGE LAB PT(LOINC) 9.8-13.5 seconds Protime High 24.1 LAB INR(LOINC) 0.9-1.2 ratio PT High International 2.4 Ratio Result Comment: Standard Dose 2.0 - 3.0 High Dose 2.5 - 3.5 The recommended therapeutic range for oral anticoagulant therapy is: LOW RISK: Prophylaxis of venous thrombosis INR: 2.0 - 3.0 Treatment of pulmonary embolism 2.0 - 3.0 Prevention of systemic embolism 2.0 - 3.0 HIGH RISK: Mechanical prosthetic valves 2.5 - 3.5 Performed By: #### PRO #### [address] [address] CBC Collected: 01/25/2018 Status: F Source: [facility] 1:53 [facility] REPOSITORY TYPE CODE TESTS RESULT OUT OF REFERENCE UNITS RANGE LAB WBC(LOINC) 4.60-10.80 10 3/mcL WBC 6.80 LAB RBCCT(LOINC 4.20-5.40 10 6/mcL ) RBC 4.43 LAB HGB(LOINC) 12.0-16.0 G/dL Hgb 12.8 LAB HCT(LOINC) 37.0-47.0 % Hct 39.4 LAB MCV(LOINC) 80.0-94.0 fL MCV 89.1 LAB MCH(LOINC) 27.0-31.2 pg MCH 28.9 LAB MCHC(LOINC) 33.0-37.0 G/dL Low MCHC 32.5 LAB RDW(LOINC) 11.5-14.5 % High RDW 16.7 LAB PLT(LOINC) 130-400 10 3/mcL Platelet 220 LAB MPV(LOINC) 7.4-10.4 fL MPV 9.0 Performed By: #### CMP, CBC, GFR, ANEU, PBNP, TROP, ADIFF #### [id number] [place], [place] [address] .AUTO DIFF Collected: 01/25/2018 Status: F Source: [facility] 1:53 PM [facility] REPOSITORY TYPE CODE TESTS RESULT OUT OF REFERENCE UNITS RANGE LAB CONSTANTINE(LOINC) 37.0-80.0 % Neutrophil % 59.1 LAB LYM(LOINC) 10.0-50.0 % Lymphocyte % 33.5 LAB MON(LOINC) 1.7-13.0 % Monocyte % 4.5 LAB EO(LOINC) 0.0-7.0 % Eosinophil % 2.1 LAB BAS(LOINC) 0.0-2.5 % Basophil % 0.8 LAB ABLYM(LOIN 0.77-3.85 10 3/mcL C) Lymphocyte, 2.30 Absolute LAB ERNIE(LOINC 0.15-1.00 10 3/mcL ) Monocyte, 0.30 Absolute LAB AEOS(LOINC 0.00-0.40 10 3/mcL ) Eosinophil, 0.10 Absolute LAB ABAS(LOINC 0.00-0.19 10 3/mcL ) Basophil, 0.10 Absolute Performed By: #### CMP, CBC, GFR, ANEU, PBNP, TROP, ADIFF #### [place] [id number] .NEUABS Collected: 01/25/2018 Status: F Source: [facility] 1:53 PM [facility] REPOSITORY TYPE CODE TESTS RESULT OUT OF REFERENCE UNITS RANGE LAB ANEU(LOINC) 2.85-6.16 10 3/mcL Neutrophil, 4.00 Absolute Performed By: #### CMP, CBC, GFR, ANEU, PBNP, TROP, ADIFF #### [place] [address] TROP Collected: 01/25/2018 Status: F Source: [facility] 1:53 PM [facility] REPOSITORY TYPE CODE TESTS RESULT OUT OF REFERENCE UNITS RANGE LAB TROP(LOINC) 0.00-0.30 ng/mL Troponin <0.30 Result Comment: Below measuring range >=0.30 Consistent with cardiac damage, increased clinical risk and possibility of myocardial infarction. Serial measurements, clinical history, appropriate symptoms and/or ECG changes may help assess possibility of CO. *Other non-acute coronary syndrome conditions such as CHF, myocarditis, pulmonary emboli, sepsis and cardiac surgery could result in myocardial damage and increased troponin levels. Performed By: #### CMP, CBC, GFR, ANEU, PBNP, TROP, ADIFF #### [address] [address] .GFR Collected: 01/25/2018 Status: F Source: [facility] 1:53 PM [facility] REPOSITORY TYPE CODE TESTS RESULT OUT OF REFERENCE UNITS RANGE LAB GFRAA(LOINC ml/min/1.73 ) sqm GFR 79 Romanian Result Comment: GFR Population mean for , Non- Americans Ages 20-29 = 116 mL/min/1.73 sq.m. Ages 30-39 = 107 mL/min/1.73 sq.m. Ages 40-49 = 99 mL/min/1.73 sq.m. Ages 50-59 = 93 mL/min/1.73 sq.m. Ages 60-69 = 85 mL/min/1.73 sq.m. Ages 70+ = 75 mL/min/1.73 sq.m. Chronic Kidney Disease: Less than 60 mL/min/1.73 square meters End Stage Renal Disease: Less than 15 mL/min/1.73 square meters LAB GFRNO(LOINC) ml/min/1.73sqm GFR Non- >60 Result Comment: GFR Population mean for , Non- Americans Ages 20-29 = 116 mL/min/1.73 sq.m. Ages 30-39 = 107 mL/min/1.73 sq.m. Ages 40-49 = 99 mL/min/1.73 sq.m. Ages 50-59 = 93 mL/min/1.73 sq.m. Ages 60-69 = 85 mL/min/1.73 sq.m. Ages 70+ = 75 mL/min/1.73 sq.m. Chronic Kidney Disease: Less than 60 mL/min/1.73 square meters End Stage Renal Disease: Less than 15 mL/min/1.73 square meters Performed By: #### CMP, CBC, GFR, ANEU, PBNP, TROP, ADIFF #### [address] [address] PBNP Collected: 01/25/2018 Status: F Source: [facility] 1:53 PM [facility] REPOSITORY TYPE CODE TESTS RESULT OUT OF REFERENCE UNITS RANGE LAB PBNP(LOINC) 5.0-300.0 pg/mL High N-Terminal 3221.0 proBNP Result Comment: In the presence of acute dyspnea, CHF likely if: Age <50 years: >450 pg/mL Age 50-75 years: >900 pg/mL Age >75 years: >1800 pg/mL Performed By: #### CMP, CBC, GFR, ANEU, PBNP, TROP, ADIFF #### [address] [address] CMP Collected: 01/25/2018 Status: F Source: [facility] 1:53 PM [facility] REPOSITORY TYPE CODE TESTS RESULT OUT OF REFERENCE UNITS RANGE LAB 1547-9 83-110 mg/dL GLUCOSE High 131 LAB NA(LOINC) 136-146 mEq/L Sodium Level 137 LAB K(LOINC) 3.5-5.1 mEq/L Potassium Level 4.3 LAB CL(LOINC) 98-107 mEq/L Chloride 102 LAB CO2(LOINC) 23-31 mEq/L CO2 30 LAB EBAL(LOINC mEq/L ) Electrolyte Balance 5.0 LAB BUN(LOINC) 7.0-18.0 mg/dL BUN High 23.5 LAB CRE(LOINC) 0.6-1.2 mg/dL Creatinine Lvl (s) 0.8 LAB BC(LOINC) 7-27 ratio High BUN/Creatinine 29 Ratio LAB CA(LOINC) 8.4-10.2 mg/dL Calcium Lvl 9.3 LAB PROT(LOINC 6.0-8.3 G/dL ) Total High Protein 9.0 LAB ALB(LOINC) 3.4-4.8 G/dL Albumin Level 3.9 LAB GLB(LOINC) G/dL Globulin 5.1 LAB AG(LOINC) 1.1-2.5 ratio Low A/G Ratio 0.8 LAB BILT(LOINC 0.2-1.0 mg/dL ) Bili Total 0.9 LAB AP(LOINC) 40-135 IU/L Alk Phos 84 LAB AST(LOINC) 10-40 IU/L AST/SGOT 22 LAB ALT(LOINC) 10-35 IU/L ALT/SGPT 10 Performed By: #### CMP, CBC, GFR, ANEU, PBNP, TROP, ADIFF #### [id number] [place], [place] [address] PROGRESS Observed: 01/20/2018 Status: COMPLETED Source: [facility] 12:19 PM [facility] REPOSITORY HNO ID: [id number] Author: Mani Newman Service: (none) Author Type: Physician Type: Progress Notes Filed: 01/26/2018 8:17 AM Note Text: This note was created using NoteWriter. Subjective Rosa Beltran is a 82 year old female was here for follow up. She was admitted -Dec.21 for congestive heart failure. She rambled from once concern to another. Her main concern was concerned persistent throat discomfort that was associated with shortness of breath. She felt constriction and the need to clear the throat. She also had dysphagia to solids and liquids. A related concern was a persistent buzzing in her head. She was also grieving the of her son. She complained of not being told her test results, as if she was being presumed to be senile. At the same token, she was not able to clarify her medication intake. Home health was supposed to be helping with her medications but she declined PT and OT. ACTIVE PROBLEM LIST Gastroesophageal Reflux Disease Without Esophagitis Chronic Atrial Fibrillation (Hcc) Pure Hypercholesterolemia Hypertension Acquired Hypothyroidism Cad (Coronary Artery Disease) Primary Osteoarthritis Involving Multiple Joints Lymphedema of Both Lower Extremities Mouth Dryness Muscular Weakness Dorsalgia Stented Coronary Artery Gastric Bypass Status for Obesity Bilateral Leg Ulcer (Hcc) Polyneuropathy (Hcc) Cecal Ulcer Respiratory Failure With Hypoxia (Hcc) Heart Failure With Preserved Ejection Fraction (Hcc) Adjustment Disorder With Depressed Mood Current Outpatient Prescriptions: spironolactone (ALDACTONE) 25 mg tablet Take 1 tablet by mouth twice daily. metoprolol tartrate, short acting, (LOPRESSOR) 25 mg tablet Take 0.5 tablets by mouth twice daily. ASCORBIC ACID (VITAMIN C ORAL) Take 1 tablet by mouth twice daily. metOLAzone (ZAROXOLYN) 2.5 mg tablet Take 1 tablet by mouth once daily. warfarin (COUMADIN) 1 mg tablet TAKE ONE TABLET BY MOUTH ONCE DAILY OR DIRECTED WITH THE 3MG TABLETS silver sulfADIAZINE (SILVADENE) 1 % cream Apply to leg wounds as directed. Zinc Sulfate 220 mg tab Take 1 tablet by mouth once daily for 14 days. (Patient not taking: Reported on 12/19/2017 ) acetaminophen (TYLENOL) 500 mg tablet Take 1,000 mg by mouth every 8 hours as needed. aspirin, enteric coated (ASPIRIN, ENTERIC COATED) 81 mg EC tablet Take 81 mg by mouth every evening. warfarin (COUMADIN) 1 mg tablet Take 1 mg by mouth daily as directed. As of 12/19/17: patient is only using 3mg tablets taking 1 x 3 mg tablet every day of the week. warfarin (COUMADIN) 3 mg tablet Take 3 mg by mouth daily as directed. As of 2/19/18: Patient takes 1 tablet (3mg) by mouth once daily every day of the week. lisinopril (ZESTRIL) 2.5 mg tablet Take 2.5 mg by mouth every evening. omeprazole (PRILOSEC) 20 mg capsule Take 20 mg by mouth once daily. docusate sodium (COLACE) 100 mg capsule Take 100 mg by mouth once daily as needed. therapeutic multivitamin w/ iron (THERAGRAN-M) 9 mg iron-400 mcg tablet Take 1 tablet by mouth once daily. ergocalciferol, vitamin D2, (DRISDOL) 50,000 unit capsule Take 1 capsule by mouth once each week. levothyroxine (LEVOXYL) 100 mcg tablet Take 1 tablet by mouth once daily. Take on empty stomach. For Thyroid. gabapentin (NEURONTIN) 300 mg capsule Take 1 capsule by mouth twice daily. furosemide (LASIX) 40 mg tablet Take 1 tablet by mouth twice daily. COMPOUNDED PRESCRIPTION Calcium Alginate 4x4 Dressing, change daily Dx: Blister left leg with infection S80.822A, L08.9; Lymphedema I89.0. Wound dimensions: 4 x 3 cm No current facility-administered medications for this visit. Review of Systems Respiratory: Positive for cough, shortness of breath and wheezing. Cardiovascular: Positive for leg swelling. Negative for chest pain and palpitations. Gastrointestinal: Negative. Genitourinary: Negative. Musculoskeletal: Positive for back pain. Neurological: Positive for weakness. Negative for headaches. Psychiatric/Behavioral: Positive for dysphoric mood. Objective BP 144/86 (BP Site: Right Arm, BP Position: Sitting, BP Cuff Size: Regular Adult) Pulse 76 Resp 18 Physical Exam Constitutional: No distress. HENT: Mouth/Throat: Posterior oropharyngeal erythema present. No oropharyngeal exudate or posterior oropharyngeal edema. Cerumen impaction bilateral. Eyes: Conjunctivae and EOM are normal. Pupils are equal, round, and reactive to light. Neck: No JVD present. Cardiovascular: S1 normal and S2 normal. An irregular rhythm present. Exam reveals no gallop. No murmur heard. Pulmonary/Chest: Effort normal. She has no decreased breath sounds. She has wheezes. She has rhonchi. She has no rales. Abdominal: There is no tenderness. Musculoskeletal: She exhibits edema. 2-3+ edema. Neurological: She is alert. Wheelchair bound. Psychiatric: Her mood appears anxious. Her speech is rapid and/or pressured. She is agitated. Cognition and memory are impaired. She exhibits a depressed mood. Assessment and Plan ASSESSMENT/PLAN: 1. Tinnitus of both ears - ICD9: 388.30, ICD10: H93.13 (primary diagnosis) Her main concern. - CONSULT TO ENT 2. Throat pain - ICD9: 784.1, ICD10: R07.0 Her main concern. - CONSULT TO ENT 3. Oropharyngeal dysphagia - ICD9: 787.22, ICD10: R13.12 Her main concern. - CONSULT TO ENT 4. Chronic respiratory failure with hypoxia (HCC) - ICD9: 518.83, 799.02, ICD10: J96.11 On O2 supplementation. 5. Heart failure with preserved ejection fraction (HCC) - ICD9: 428.9, ICD10: I50.30 Consider increasing diuretics. However, her actual medications needed clarification. She insisted she was taking all her medications. [facility] 6. Lymphedema of both lower extremities - ICD9: 457.1, ICD10: I89.0 See #5. 7. Essential hypertension - ICD9: 401.9, ICD10: I10 - fair control - Continue current medication(s) - Verify medications. 8. Chronic atrial fibrillation (HCC) - ICD9: 427.31, ICD10: I48.2 Anticoagulation monitored. 9. Coronary artery disease involving minto heart without angina pectoris, unspecified vessel or lesion type - ICD9: 414.01, ICD10: I25.10 Stable. 10. Physical debility - ICD9: 799.3, ICD10: R53.81 She declined home PT, OT. 11. Adjustment disorder with depressed mood - ICD9: 309.0, ICD10: F43.21 Patient declined more medication or referral for counseling. 12. Acquired hypothyroidism - ICD9: 244.9, ICD10: E03.9 - continue current dose of Synthroid. 13. Ulcers of both lower extremities, unspecified ulcer stage (HCC) - ICD9: 707.10, ICD10: L97.919, L97.929 Per Wound Care. At least 30 minutes was spent, more than half the time for discussion of complex issues and care coordination. Mani Newman MD CNOV Observed: 01/20/2018 Status: COMPLETED Source: [facility] 11:40 AM [facility] REPOSITORY Office Visit (INTMWS) ROSA BELTRAN ([id number]) 1935 F Date Time Provider Department 01/20/18 11:40 AM MANI NEWMAN INTMWS During your visit today, we recorded the following information about you: Pulse Respiration Blood pressure 76/minute 18/minute 144/86 Mani Newman MD 01/26/2018 8:17 AM Signed This note was created using [employer]. Subjective Rosa Beltran is a 82 year old female was here for follow up. She was admitted -Dec.21 for congestive heart failure. She rambled from once concern to another. Her main concern was concerned persistent throat discomfort that was associated with shortness of breath. She felt constriction and the need to clear the throat. She also had dysphagia to solids and liquids. A related concern was a persistent buzzing in her head. She was also grieving the of her son. She complained of not being told her test results, as if she was being presumed to be senile. At the same token, she was not able to clarify her medication intake. Home health was supposed to be helping with her medications but she declined PT and OT. ACTIVE PROBLEM LIST Gastroesophageal Reflux Disease Without Esophagitis Chronic Atrial Fibrillation (Hcc) Pure Hypercholesterolemia Hypertension Acquired Hypothyroidism Cad (Coronary Artery Disease) Primary Osteoarthritis Involving Multiple Joints Lymphedema of Both Lower Extremities Mouth Dryness Muscular Weakness Dorsalgia Stented Coronary Artery Gastric Bypass Status for Obesity Bilateral Leg Ulcer (Hcc) Polyneuropathy (Hcc) Cecal Ulcer Respiratory Failure With Hypoxia (Hcc) Heart Failure With Preserved Ejection Fraction (Hcc) Adjustment Disorder With Depressed Mood Current Outpatient Prescriptions: spironolactone (ALDACTONE) 25 mg tablet Take 1 tablet by mouth twice daily. metoprolol tartrate, short acting, (LOPRESSOR) 25 mg tablet Take 0.5 tablets by mouth twice daily. ASCORBIC ACID (VITAMIN C ORAL) Take 1 tablet by mouth twice daily. metOLAzone (ZAROXOLYN) 2.5 mg tablet Take 1 tablet by mouth once daily. warfarin (COUMADIN) 1 mg tablet TAKE ONE TABLET BY MOUTH ONCE DAILY OR DIRECTED WITH THE 3MG TABLETS silver sulfADIAZINE (SILVADENE) 1 % cream Apply to leg wounds as directed. Zinc Sulfate 220 mg tab Take 1 tablet by mouth once daily for 14 days. (Patient not taking: Reported on 12/19/2017 ) acetaminophen (TYLENOL) 500 mg tablet Take 1,000 mg by mouth every 8 hours as needed. aspirin, enteric coated (ASPIRIN, ENTERIC COATED) 81 mg EC tablet Take 81 mg by mouth every evening. warfarin (COUMADIN) 1 mg tablet Take 1 mg by mouth daily as directed. As of 12/19/17: patient is only using 3mg tablets taking 1 x 3 mg tablet every day of the week. warfarin (COUMADIN) 3 mg tablet Take 3 mg by mouth daily as directed. As of 12/19/17: Patient takes 1 tablet (3mg) by mouth once daily every day of the week. lisinopril (ZESTRIL) 2.5 mg tablet Take 2.5 mg by mouth every evening. omeprazole (PRILOSEC) 20 mg capsule Take 20 mg by mouth once daily. docusate sodium (COLACE) 100 mg capsule Take 100 mg by mouth once daily as needed. therapeutic multivitamin w/ iron (THERAGRAN-M) 9 mg iron-400 mcg tablet Take 1 tablet by mouth once daily. ergocalciferol, vitamin D2, (DRISDOL) 50,000 unit capsule Take 1 capsule by mouth once each week. levothyroxine (LEVOXYL) 100 mcg tablet Take 1 tablet by mouth once daily. Take on empty stomach. For Thyroid. gabapentin (NEURONTIN) 300 mg capsule Take 1 capsule by mouth twice daily. furosemide (LASIX) 40 mg tablet Take 1 tablet by mouth twice daily. COMPOUNDED PRESCRIPTION Calcium Alginate 4x4 Dressing, change daily Dx: Blister left leg with infection S80.822A, L08.9; Lymphedema I89.0. Wound dimensions: 4 x 3 cm No current facility-administered medications for this visit. Review of Systems Respiratory: Positive for cough, shortness of breath and wheezing. Cardiovascular: Positive for leg swelling. Negative for chest pain and palpitations. Gastrointestinal: Negative. Genitourinary: Negative. Musculoskeletal: Positive for back pain. Neurological: Positive for weakness. Negative for headaches. Psychiatric/Behavioral: Positive for dysphoric mood. Objective BP 144/86 (BP Site: Right Arm, BP Position: Sitting, BP Cuff Size: Regular Adult) Pulse 76 Resp 18 Physical Exam Constitutional: No distress. HENT: Mouth/Throat: Posterior oropharyngeal erythema present. No oropharyngeal exudate or posterior oropharyngeal edema. Cerumen impaction bilateral. Eyes: Conjunctivae and EOM are normal. Pupils are equal, round, and reactive to light. Neck: No JVD present. Cardiovascular: S1 normal and S2 normal. An irregular rhythm present. Exam reveals no gallop. No murmur heard. Pulmonary/Chest: Effort normal. She has no decreased breath sounds. She has wheezes. She has rhonchi. She has no rales. Abdominal: There is no tenderness. Musculoskeletal: She exhibits edema. 2-3+ edema. Neurological: She is alert. Wheelchair bound. Psychiatric: Her mood appears anxious. Her speech is rapid and/or pressured. She is agitated. Cognition and memory are impaired. She exhibits a depressed mood. Assessment and Plan ASSESSMENT/PLAN: 1. Tinnitus of both ears - ICD9: 388.30, ICD10: H93.13 (primary diagnosis) Her main concern. - CONSULT TO ENT 2. Throat pain - ICD9: 784.1, ICD10: R07.0 Her main concern. - CONSULT TO ENT 3. Oropharyngeal dysphagia - ICD9: 787.22, ICD10: R13.12 Her main concern. - CONSULT TO ENT 4. Chronic respiratory failure with hypoxia (HCC) - ICD9: 518.83, 799.02, ICD10: J96.11 On O2 supplementation. 5. Heart failure with preserved ejection fraction (HCC) - ICD9: 428.9, ICD10: I50.30 Consider increasing diuretics. However, her actual medications needed clarification. She insisted she was taking all her medications. Request medication profile from [facility]. 6. Lymphedema of both lower extremities - ICD9: 457.1, ICD10: I89.0 See #5. 7. Essential hypertension - ICD9: 401.9, ICD10: I10 - fair control - Continue current medication(s) - Verify medications. 8. Chronic atrial fibrillation (HCC) - ICD9: 427.31, ICD10: I48.2 Anticoagulation monitored. 9. Coronary artery disease involving minto heart without angina pectoris, unspecified vessel or lesion type - ICD9: 414.01, ICD10: I25.10 Stable. 10. Physical debility - ICD9: 799.3, ICD10: R53.81 She declined home PT, OT. 11. Adjustment disorder with depressed mood - ICD9: 309.0, ICD10: F43.21 Patient declined more medication or referral for counseling. 12. Acquired hypothyroidism - ICD9: 244.9, ICD10: E03.9 - continue current dose of Synthroid. 13. Ulcers of both lower extremities, unspecified ulcer stage (HCC) - ICD9: 707.10, ICD10: L97.919, L97.929 Per Wound Care. At least 30 minutes was spent, more than half the time for discussion of complex issues and care coordination. MD Mani Mckenna MD 01/28/2018 9:08 AM Signed Addendum: It seems patient had not filled furosemide at [facility] since April 2017. Medication adherence needs monitored. Noted patient was referred to ER last week. Mani Newman MD Referring Provider: SELF [[id number]] Allergies As of Date: 01/20/2018 (No Known Allergies) Date Reviewed: 01/20/2018 Reviewed by: Swathi Cruz LPN - Fully Assessed Reason for Visit: Hospital F/U [57] Primary Visit Diagnosis:Tinnitus of both ears [H93.13] Other Visit Diagnoses:Throat pain [R07.0] Oropharyngeal dysphagia [R13.12] Chronic respiratory failure with hypoxia (HCC) [J96.11] Heart failure with preserved ejection fraction (HCC) [I50.30] Lymphedema of both lower extremities [I89.0] Essential hypertension [I10] Chronic atrial fibrillation (HCC) [I48.2] Coronary artery disease involving minto heart without angina pectoris, unspecified vessel or lesion type [I25.10] Physical debility [R53.81] Adjustment disorder with depressed mood [F43.21] Acquired hypothyroidism [E03.9] Ulcers of both lower extremities, unspecified ulcer stage (HCC) [L97.919, L97.929] Order(s):CONSULT TO ENT [4673] Order #: [id number]: 1 Prescriptions as of 01/20/2018 Sig: SPIRONOLACTONE 25 MG TABLET Take 1 tablet by mouth twice * METOPROLOL TARTRATE 25 MG TAB* Take 0.5 tablets by mouth twi* VITAMIN C ORAL Take 1 tablet by mouth twice * METOLAZONE 2.5 MG TABLET Take 1 tablet by mouth once d* WARFARIN 1 MG TABLET TAKE ONE TABLET BY MOUTH ONCE* SILVER SULFADIAZINE 1 % TOPIC* Apply to leg wounds as direct* ZINC SULFATE 220 MG TABLET Take 1 tablet by mouth once d* Patient not taking: Reported on 12/19/2017 ACETAMINOPHEN 500 MG TABLET Take 1,000 mg by mouth every * ASPIRIN 81 MG TABLET,DELAYED * Take 81 mg by mouth every jean* WARFARIN 1 MG TABLET Take 1 mg by mouth daily as d* WARFARIN 3 MG TABLET Take 3 mg by mouth daily as d* LISINOPRIL 2.5 MG TABLET Take 2.5 mg by mouth every ev* OMEPRAZOLE 20 MG CAPSULE,LUIS MIGUEL* Take 20 mg by mouth once oliver* DOCUSATE SODIUM 100 MG CAPSULE Take 100 mg by mouth once yuly* MULTIVITAMIN-IRON 9 MG-FOLIC * Take 1 tablet by mouth once d* ERGOCALCIFEROL (VITAMIN D2) 5* Take 1 capsule by mouth once * LEVOTHYROXINE 100 MCG TABLET Take 1 tablet by mouth once d* GABAPENTIN 300 MG CAPSULE Take 1 capsule by mouth twice* FUROSEMIDE 40 MG TABLET Take 1 tablet by mouth twice * COMPOUNDED PRESCRIPTION Calcium Alginate 4x4 Dressing* Problem List As Of Date 01/20/2018 Noted Resolved Gastroesophageal reflux disease without esophag*INVALID FOR* Chronic atrial fibrillation (HCC) [I48.2] INVALID FOR* Priority: B Pure hypercholesterolemia [E78.00] Hypertension [I10] Priority: D Acquired hypothyroidism [E03.9] Priority: F CAD (coronary artery disease) [I25.10] More... 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 More... More... Respiratory failure with hypoxia (HCC) [J96.91] INVALID FOR* Priority: Severe Heart failure with preserved ejection fraction *INVALID FOR* Priority: A More... Requires continuous at home supplemental oxygen*INVALID FOR*01/20/2018 More... Adjustment disorder with depressed mood [F43.21]INVALID FOR* Disposition: Return if symptoms worsen or fail to improve. Follow-up and Disposition History Recorded Encounter Status:Closed by MANI NEWMAN MD on 01/26/18 XR TIBIA FIBULA 2V Observed: 01/13/2018 Status: F Source: [facility] AP/LAT RT 1:08 PM CLINIC OTHER CAMPUS REPOSITORY * * *Final Report* * * DATE OF EXAM: Jan 13 2018 1:08PM MDX 5266 - XR TIBIA FIBULA 2V AP/LAT RT / PROCEDURE REASON: multiple diagnoses * * * * Physician Interpretation * * * * RIGHT tib-fib HISTORY: 82 years old Clinical information: Varicose veins of right lower extremity with ulcer of unspecified site Varicose veins of right lower extremity with other complications Non-pressure chronic ulcer of unspecified part of right lower leg with unspecified severity Edema, unspecified wound on rt tib. fib wound covered by wound center TECHNIQUE: Images: XR TIBIA FIBULA 2V AP/LAT RT Comparison: 10/14/2017. RESULT: Findings: The components of the RIGHT total knee arthroplasty are in good alignment with the respective bones and each other. There is no evidence of loosening of the components. Lateral plate and screws noted in the distal fibula overlying a remote distal fibular fracture. No fractures or dislocations are seen. Ghost tracks are noted in the tibia from recent previous hardware. Old fracture of the distal tibia again noted unchanged. Large amount soft tissue swelling over the lower leg. IMPRESSION: No significant interval change. Stereotype Finisher: DWIGHT Transcribe Date/Time: Jan 13 2018 4:29P Dictated by : HAO YORK DO This examination was interpreted and the report reviewed and electronically signed by: HAO YORK DO on Jan 13 2018 4:31PM EST [id number] BASIC METABOLIC PANL Collected: 01/13/2018 Status: F Source: [facility] 12:00 PM [facility] REPOSITORY TYPE CODE TESTS RESULT OUT OF REFERENCE UNITS RANGE LAB GLU 74-99 mg/dL High Glucose 108 Result Comment: The [place] [employer] (ADA) provides guidance for cutoff values for fasting glucose and random glucose. The ADA defines fasting as no caloric intake for at least 8 hours. Fas ting plasma glucose results between 100 to 125 mg/dL indicate increased risk for diabetes (prediabetes). Fasting plasma glucose results greater than or equal to 126 mg/dL meet the criteria for diagnosis of diabetes. In the absence of unequivocal hyperglycemia, results should be confirmed by repeat testing. In a patient with classic symptoms of hyperglycemia or hyperglycemic crisis, random plasma glucose results greater than or equal to 200 mg/dL meet the criteria for diagnosis of diabetes. Reference: Standards of Medical Care in Diabetes 2016, [place] [employer] Association. Diabetes Care. 2016.39(Suppl 1). LAB BUN 7-21 mg/dL BUN High 26 LAB CRET 0.58-0.96 mg/dL Creatinine 0.83 LAB NA 136-144 mmol/L Sodium 140 LAB K 3.7-5.1 mmol/L Potassium 4.1 LAB CL 97-105 mmol/L Chloride 103 LAB CO2 22-30 mmol/L CO2 28 LAB AGAP 9-18 mmol/L Anion Gap 9 LAB CA 8.5-10.2 mg/dL Calcium, Total 9.0 LAB GFRAA eGFR- Amer. >60 LAB GFRNAA . eGFR-All Other Races >60 Result Comment: eGFR (Estimated GFR) Units of measure: mL/min/1.73 meters squared eGFR is derived from the reexpressed MDRD Study equation using the following parameters: serum creatinine, age, gender and race. The creatinine assay has been calibrated to be traceable to IDMS. An eGFR <60 mL/min/1.73m2 for >3 months is consistent with chronic kidney disease. Refer to KDOQI guidelines for clinical interpretation. In patients with unstable renal function, e.g. those with acute kidney injury, the eGFR may not accurately reflect actual GFR. Performed By: #### BMP #### [facility] [address] [address] PREALBUMIN Collected: 01/13/2018 Status: F Source: [facility] 12:00 PM [facility] REPOSITORY TYPE CODE TESTS RESULT OUT OF REFERENCE UNITS RANGE LAB PREALB 17-36 mg/dL Low Prealbumin 16 Performed By: #### PREALB #### [facility] [address] [address] WOUND Observed: 01/13/2018 Status: F Source: [facility] CULTURE/STAIN 11:30 AM [facility] OTHER CAMPUS REPOSITORY Smear Result - Many Gram negative bacilli --> ABNORMAL ALERT Many --> ABNORMAL ALERT Gram positive cocci in pairs --> ABNORMAL ALERT Rare Polymorphonuclear leukocytes Rare Epithelial cells Many RBC Culture Result - Many Proteus mirabilis --> ABNORMAL ALERT Many --> ABNORMAL ALERT Staphylococcus aureus --> ABNORMAL ALERT Many skin sanchez ORGANISM: Proteus mirabilis METHOD: Minimum inhibitory concentration(Vitek) Antibiotic Interp THEO Status Ampicillin SUSCEPTIBLE <=2 F Gentamicin SUSCEPTIBLE <=1 F Trimeth sulfameth SUSCEPTIBLE <=20 F Ciprofloxacin SUSCEPTIBLE <=0.25 F Cefepime SUSCEPTIBLE <=1 F Piperacillin/Tazobac SUSCEPTIBLE <=4 F Ampicillin Sulbact SUSCEPTIBLE <=2 F Ceftriaxone SUSCEPTIBLE <=1 F Meropenem SUSCEPTIBLE <=0.25 F Ertapenem SUSCEPTIBLE <=0.5 F ORGANISM: Staphylococcus aureus METHOD: Minimum inhibitory concentration(Vitek) Antibiotic Interp THEO Status Erythromycin SUSCEPTIBLE 0.5 F Clindamycin SUSCEPTIBLE 0.25 F Tetracycline SUSCEPTIBLE <=1 F Vancomycin SUSCEPTIBLE <=0.5 F Oxacillin SUSCEPTIBLE <=0.25 F Oxacillin susceptible staphylococci are susceptible to other penicillinase stable penicillins, beta lactam/beta lactamase inhibitor combinations, anti staphyloccal cephems, and carbapenems. Trimeth sulfameth SUSCEPTIBLE <=10 F Gentamicin SUSCEPTIBLE <=0.5 F Rifampin SUSCEPTIBLE <=0.5 F Rifampin should not be used alone for antimicrobial therapy. Doxycycline SUSCEPTIBLE <=0.5 F Performed By: #### WCUL #### [facility] [address] [place], [place] [address] Observed: 01/13/2018 Status: F Source: [facility] ANAEROBE CULTURE 11:30 AM [facility] [place] REPOSITORY Culture Result - Negative for anaerobes. Performed By: #### ANACUL #### [facility] [address] [place], [place] [address] Observed: 01/13/2018 Status: F Source: [facility] FUNGAL CULTURE 11:30 AM [facility] OTHER [place] REPOSITORY Culture Result - No Fungus isolated after 32 days Performed By: #### FCUL #### [facility] [address] [place], [place] [address] PROGRESS Observed: 01/13/2018 Status: COMPLETED Source: [facility] 11:00 AM [facility] REPOSITORY HNO ID: [id number] Author: Luis Simons (Tray Room Worker) Service: (none) Author Type: Nurse Practitioner Type: Progress Notes Filed: 03/09/2018 10:29 AM Note Text: DATE OF VISIT: 01/13/2018 REASON FOR VISIT: Non-healing lower extremity wound. HISTORY OF PRESENT ILLNESS: Rosa Beltran is a 81 year old female who presents to the [facility] for further evaluation and management of a non-healing leg wound. She has a past medical history significant for atrial fibrillation on Coumadin, coronary artery disease,?COPD, hypertension, dyslipidemia and CHF.?Patient has felt mildly short of breath over the past month. ?Increase with exertion and lying flat. She is on 40 mg of Lasix twice a day. She still is urinating appropriately. She has not had any chest pain or palpitations. ?Fever, chills, or sweats. ?No productive cough. ?No wheezing. Upon taking patients vitals, her SPO2 level was from 76% - 85%. Patient stated she had shortness of breath. She was unable to finish her sentences without catching her breath. The tips of her fingers were cyanotic. Patient was sent to the ER for further evaluation. Tiffanie BARBOSA wheeled patient to the ER. INTERVAL HISTORY: Patient was sent tot he ED during her previous visit due to low oxygenation. She is now on 2 L of oxygen at all times. She denies any breathing difficulty at this time. She is an 81 year old white female with a long-standing history of swelling in her lower extremities secondary to lymphedema. Approximately 2 years ago, she sustained a fracture to her right ankle, requiring surgical intervention. The operative site became infected, and required prolonged treatment and eventually a skin graft for complete wound closure. As a result, the patient's ambulatory capacity has been impaired. Furthermore, she is morbidly obese which limits her ambulation. The patient leads a relatively sedentary lifestyle and requires a walker for ambulation. She spends a great part of her day in a sitting position. She sleeps with the head of the bed elevated. Swelling in her lower extremities has been on-going for many years. The patient has undergone a battery of diagnostic tests. A non-invasive lower extremity arterial study in December 2016 reveals normal- ankle brachial indices, bilaterally. Venous doppler examination on 01/14 reveals incompetence of the great saphenous veins, bilaterally. There is also incompetence of the small saphenous veins, bilaterally and the right accessory saphenous vein. At present, she has three wounds, 2 on the right distal leg and the other is on the left posterior calf. The left leg wound has been present for over a year and was managed with silver alginate, NPWT, Santyl, serial sharp wound debridements, compression therapy using Surepress and compression pumps. Patient's wound cultures over the past several months have grown out Enterobacter cloacae, MRSA, coag-staph aureus, and in January grew out Pseudomonas, managed with oral antibiotics. IIn July of this year, she developed a new wound on the right lateral distal leg, then in July, she experience cellulitis of both legs requiring hospitalization. In the last year, she has been followed by Dr. Jaskaran Chance at the [facility]. It was felt that her home support system was inadequate and that she may not have the resources in her home environment to appropriately care for her needs. In this regard, a geriatric social work professor consultation had been recommended on several occassions, but patient apparently insisted on remaining in her home environment despite that there was thought that is may be less than optimal. The patient is here at the [facility] for a second opinion regarding management of the abovementioned bilateral lower extremity wounds. She offers no other complaints. She denies any fevers, chills, wound-related pain or other related symptoms. 12/30/17 Patient presents for follow-up. Overall, her lower extremity wounds are progressing favorably. One of the three is now healed. The remaining two show evidence of wound contraction and granulation tissue formation. To date, wounds have been managed with sharp debridement, collagen/anti-microbial dressing, compression therapy and nutritional support. She offers no new complaints. The edema in her lower extremities is well-controlled. She denies any fever, chills or other related symptoms. PAST MEDICAL HISTORY Diagnosis Date - Acquired hypothyroidism - Acute respiratory failure with hypoxia ([facility]) 09/30/2017 - Atrial fibrillation ([facility]) - CAD (coronary artery disease) Dr. Brenda Awan Hts, Promus element K[facility] LAD 11/20/2012, Stress test 04/2014 inferoapical reversible ischemia,small LVEF 48- 50%, LHC 12/2014 L main-normal, LAD widely patent, Cx diffuse mild luminal irregularities with 80%focal stenosis distal, RCA dominant with minimal luminal irregularities. 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 - Pure hypercholesterolemia - Rheumatoid arthritis ([facility]) 2007 - Sleep apnea - Stented coronary artery 12/29/2016 PAST SURGICAL HISTORY Procedure Laterality Date - CC CORONARY STENT 11/20/2012 [facility] - CC CORONARY STENT 12/20/2014 [facility], Cfx - SECTION HX - COLONOSCOPY 06/10/2017 [facility], Nonspecific cecal ulcer - GASTRIC BYPASS HX 1986 - HERNIA REPAIR HX 1987; 1989 - PAST SURGICAL HISTORY OF Right 09/2015 right tibia fracture ORIF - PAST SURGICAL HISTORY OF Right 01/20/2016 Removal of hardware, right tibia - TOTAL KNEE REPLACEMENT Right 2003 [facility] Gen. - TOTAL KNEE REPLACEMENT Left 2004 [facility] Gen. MEDICATIONS ergocalciferol, vitamin D2, (DRISDOL) 50,000 unit capsule Take 1 capsule by mouth once each week. levothyroxine (LEVOXYL) 100 mcg tablet Take 1 tablet by mouth once daily. Take on empty stomach. For Thyroid. gabapentin (NEURONTIN) 300 mg capsule Take 1 capsule by mouth twice daily. metoprolol tartrate, short acting, (LOPRESSOR) 50 mg tablet TAKE ONE TABLET BY MOUTH TWICE DAILY furosemide (LASIX) 40 mg tablet Take 1 tablet by mouth twice daily. COMPOUNDED PRESCRIPTION Calcium Alginate 4x4 Dressing, change daily Dx: Blister left leg with infection S80.822A, L08.9; Lymphedema I89.0. Wound dimensions: 4 x 3 cm acetaminophen (TYLENOL) 500 mg tablet Take 1,000 mg by mouth every 8 hours as needed. aspirin, enteric coated (ASPIRIN, ENTERIC COATED) 81 mg EC tablet Take 81 mg by mouth once daily. warfarin (COUMADIN) 1 mg tablet Take 1 mg by mouth daily as directed. Take 1 tablet (1mg) by mouth once daily. Take with 1 x 3mg tablet to total 4mg by mouth once daily. warfarin (COUMADIN) 3 mg tablet Take 3 mg by mouth daily as directed. Take 1 tablet (3mg) by mouth once daily. Take with 1 x 1mg tablet to total 4mg by mouth once daily. lisinopril (ZESTRIL) 2.5 mg tablet Take 2.5 mg by mouth once daily. omeprazole (PRILOSEC) 20 mg capsule Take 20 mg by mouth once daily. spironolactone (ALDACTONE) 25 mg tablet Take 25 mg by mouth once daily. docusate sodium (COLACE) 100 mg capsule Take 100 mg by mouth once daily as needed. therapeutic multivitamin w/ iron (THERAGRAN-M) 9 mg iron-400 mcg tablet Take 1 tablet by mouth once daily. ALLERGIES No Known Allergies FAMILY HISTORY: Patient's father in his 70s with a history of arthritis. Her mother at the age of 90 with a history of arthritis. SOCIAL HISTORY Patient is a , lives alone, but has a son nearby. She has 6 children. Substance Use Topics - Smoking status: Passive Smoke Exposure - Never Smoker - Smokeless tobacco: Never Used Comment: smoked for 40 years - Alcohol use No REVIEW OF SYSTEM: PAIN ASSESSMENT: Negative for pain, history of chronic pain, or current treatment for a chronic pain condition. GENERAL: No weight loss, malaise or fevers HEENT: Negative for frequent or significant headaches, No changes in hearing or vision, no nose bleeds or other nasal problems NECK: Negative for lumps, goiter, pain and significant neck swelling RESPIRATORY: Negative for cough, hemoptysis, wheezing, positive for shortness of breath CARDIOVASCULAR: Negative for chest pain,palpitations; has chronic leg swelling GI: No nausea, vomiting, or diarrhea : No history of dysuria, frequency or incontinence MUSCULOSKELETAL: Negative for joint pain or swelling, back pain or muscle pain SKIN: As per HPI. Negative for any other lesions, rash, and itching PSYCH: Negative for sleep disturbance, mood disorder and recent psychosocial stressors HEMATOLOGY/LYMPHOLOGY: Negative for prolonged bleeding, bruising easily or swollen nodes ENDOCRINE: Negative for cold or heat intolerance, polyuria, polydipsia and goiter NEURO: No history of headaches, syncope, paralysis, seizures or tremors 01/13/18 1100 BP: 135/69 Pulse: 60 Resp: 16 Temp: 36.5 ?C (97.8 ?F) TempSrc: Oral SpO2: 94% Weight: 88.1 kg (194 lb 4.8 oz) PHYSICAL EXAMINATION: HEENT: PERRLA , sclera non-icteric, EOM intact, mucous membrane moist, pink and w/o lesions Comments: Neck: Supple, no bruit, no masses, trachea midline Comments: Chest: Lungs clear to auscultation, no accessory muscle use for respiration Comments: Heart: Regular rate/rhythm, normal S1,S2, no murmur, rubs or gallops Comments: Abdomen: Soft, non-tender, non-distended, + bowel sounds, no bruit, no organomegaly Comments: Extremity: Dorsalis pedis : Present (Y) Absent Diminished Doppler Posterior Tibialis: Present (Y) Absent Diminished Doppler Capillary Refill: < 3 sec. (Y) > 3 sec. 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 10/14/17 WBC 8.4, Hgb 12.2, Hct 38.5, PLT 211, Glu 91, BUN 24, Cr 0.88, Na 136, K 4.7, Cl 100, Albumin 3.6, Total protein 9.1 11/04/17 Venous Doppler Study Bilateral Lower Extremities IMPRESSION RIGHT SIDE - DEEP VEINS Negative for acute deep vein thrombosis in vessels visualized. Positive for valvular incompetency in the common femoral vein and femoral vein. Lymph node noted, within the groin, measuring 2.75 x 2.71 x .809cm. Cystic structure noted, within the popliteal fossa, measuring 2.17 x 2.67 x 1.49cm. ? RIGHT SIDE - SUPERFICIAL VEINS Positive for valvular incompetency in the great saphenous vein. REFLUX ONLY NOTED AT PROXIMAL THIGH. Vessel becomes tortuous branching from proximal to distal calf. The anterior lateral branch is negative for incompetency. Positive for valvular incompetency in the small saphenous vein. REFLUX ONLY NOTED AT DISTAL CALF. LEFT SIDE - DEEP VEINS Negative for acute deep vein thrombosis in vessels visualized. Positive for valvular incompetency in the femoral vein at the mid thigh. LEFT SIDE - SUPERFICIAL VEINS Positive for valvular incompetency in the great saphenous vein. REFLUX ONLY NOTED AT MID CALF. Negative for valvular incompetency in the small saphenous vein. No previous scans for comparison; however, chronic appearing superficial thrombophlebitis in the great saphenous vein at the distal calf. ? Technologist: Cleo HOBBST Ordering physician: Luis Simons ? Interpreting physician: Vishal Torres MD, RVT ? 01/24/17 Segmental arterial doppler study bilateral lower extremities Findings: NIMISHA 1.04 to the right and 1.0 to the left. Based upon the findings of this resting non-invasive lower extremity arterial study, arterial perfusion to ankle level appears to be relatively normal bilaterally. Triphasic and biphasic waveforms were noted at ankle level bilaterally. Resting ankle-brachial indices were bilaterally normal. ? 08/01/17 X-Ray 3-View Right Ankle Impression: There is prior open reduction internal fixation of the fibula which appears to be relatively intact allowing for advanced bony osteopenia. There is an irregular appearance of the lateral side distal tibia which is compatible with a prior fracture for which a new fracture on the lateral side is not excluded. The fracture could be potentially be associated with new trauma or potentially infection. Recommend consideration for follow-up study such as MRI or potentially three-phase bone scan. ? Flattened appearance of the arch of the foot with degenerative change of the tarsotarsal joints. ? Diffuse soft tissue swelling. ? Electronically Signed: Kelly Camarena MD at 20:15 EDT Tel , Service support , ? 10/14/17 XR 2 View Tib/Fib (Left) Findings: Left tibia-fibula: Tibial component of the joint prosthesis noted without associated abnormal lucency. No acute fracture or bony destruction. Right tibia and fibula: Plate and screw fixation remote distal fibular fracture. There is also remote tibial fracture with residual posterior angulation. Ghost tracks from previous tibial hardware. Tibial component of the joint prosthesis noted without associated abnormal lucency. No acute fracture or bony destruction. ? Stereotype Finisher: DWIGHT ? Transcribe Date/Time: Oct 14 2017 ?4:02P Dictated by : ZURDO SANTOS MD ? 10/14/17 XR 2 View Tib/Fib (Right) Findings: Left tibia-fibula: Tibial component of the joint prosthesis noted without associated abnormal lucency. No acute fracture or bony destruction. Right tibia and fibula: Plate and screw fixation remote distal fibular fracture. There is also remote tibial fracture with residual posterior angulation. Ghost tracks from previous tibial hardware. Tibial component of the joint prosthesis noted without associated abnormal lucency. No acute fracture or bony destruction. ? Stereotype Finisher: PSCVerónica ? Transcribe Date/Time: Oct 14 2017 ?4:02P Dictated by : ZURDO SANTOS MD ? 10/14/17 XR 2 View Tib/Fib (Left) Findings: Left tibia-fibula: Tibial component of the joint prosthesis noted without associated abnormal lucency. No acute fracture or bony destruction. Right tibia and fibula: Plate and screw fixation remote distal fibular fracture. There is also remote tibial fracture with residual posterior angulation. Ghost tracks from previous tibial hardware. Tibial component of the joint prosthesis noted without associated abnormal lucency. No acute fracture or bony destruction. WOUND ASSESSMENT: Wound Number: 1 First Assessed Date: 10/14/17 Pre-existing: YES Location: Leg Orientation: Right, Lateral and Distal Wound Etiology: Venous Depth of Tissue Injury (Non-pressure): Full Thickness Diabetic Wounds:N/A Pressure Injury: N/A Pre-Measurements Initial (First Visit): 3.5 cm length x 4.0 cm width x 0.5 cm depth Post Measurement (Current): 3.0 cm length x 4.0 cm width x 0.4 cm depth % Healing Rate/#Weeks: 36.5 % -- Week 7 Wound Bed (Post-debridement): 100% red % of Healthy tissue: Undermining: No Tunneling: No Tendon/bone exposed: NO Wound Edge/Margins: Irregular wound edges and Edge attached to base Periwound Tissue: Mild erythema, Wet (macerated), and Edema Exudate Amount:Moderate Consistency:Serous Odor:Minimal Infection/Critical Colonization Localized s/s: Non-healing and Increased exudate Systemic s/s: None Local/systemic Rx: None Wound Healing Status: Chronic Clinically presenting as: Stalled wound healing Current topical treatment: Iodoflex Wound Number: 2 First Assessed Date: 10/14/17 Pre-existing: YES Location: Leg Orientation: Right, Medial and Distal Wound Etiology: Surgical Depth of Tissue Injury (Non-pressure): Partial Thickness Diabetic Wounds:N/A Pressure Injury: N/A Pre-Measurements Initial (First Visit): 0.5 cm length x 0.4 cm width x 0.1 cm depth Post Measurement (Current): Epithelialized % Healing Rate/#Weeks: Week 1 -- Healed Wound Bed (Post-debridement): % of Healthy tissue: Undermining: No Tunneling: No Tendon/bone exposed: NO Wound Edge/Margins: Normal, intact, Irregular wound edges and Edge attached to base Periwound Tissue: Normal, intact,uninvolved tissue and Dry,flaky Exudate Amount: None Consistency: None Odor:None Infection/Critical Colonization Localized s/s: None and Edema Systemic s/s: None Local/systemic Rx: None Wound Healing Status: Chronic Clinically presenting as: Healed Current topical treatment: Iodoflex Wound Number: 3 First Assessed Date: 10/14/17 Pre-existing: YES Location: Leg (calf) Orientation: Left and Posterior Wound Etiology: Venous Depth of Tissue Injury (Non-pressure): Full Thickness Diabetic Wounds:N/A Pressure Injury: N/A Pre-Measurements Initial (First Visit): 1.3 cm length x 1.2 cm width x 0.1 cm depth Post Measurement (Current): Epithelialized % Healing Rate/#Weeks: 100 % -- Week 5 Wound Bed (Post-debridement): 100% [employer] % of Healthy tissue: Undermining: No Tunneling: No Tendon/bone exposed: NO Wound Edge/Margins: Well-defined wound edges and Edge attached to base Periwound Tissue: [employer], dry and intact, No fluctuance, induration or advancing soft tissue necrosis or ischemia Exudate: Nonr Consistency: None Odor:None Infection/Critical Colonization: N/A Localized s/s: None Systemic s/s: None Local/systemic Rx: None Wound Healing Status: Chronic Clinically presenting as: Healed Current topical treatment: Collagen IMPRESSION: 1. Non-healing right and left lower extremity wounds ( #1 and #3) in the setting of chronic venous insufficiency with secondary lymphedema. 2. Recurrent right medial leg wound s/p STSG in the setting of chronic edema. 3. Significant lower extremity edema secondary to underlying chronic venous insufficiency with secondary lymphedema. 4. Multiple risk factors or co-morbidities that may contribute to wound healing difficulties include hypothyroid disease, chronic atrial fibrillation on anticoagulation, coronary artery disease, COPD, dyslipidemia, hypertension, muscle weakness, osteoarthritis, GERD, depression and obesity. 5. Wound cultures positive for Enterobacter cloacae and Staph aureus most likely increased colonization. 6. Very good glucose control based on recent HgbA1c. 7. Zinc insufficiency ( precursor for collagen synthesis. 8. No significant arterial disease based on recent PVRs. 9. No evidence of osteomyelitis based on recent XRs. 10. Valvular incompetency involving the right common femoral vein , right femoral vein, right great saphenous vein, left femoral vein (mid thigh) and left great saphenous vein (mid thigh). TREATMENT PLAN: Debridement Type: Autolytic Enzymatic Mechanical Surgical Sharp (Y) Other: ?? Sharp debridement is performed to freshen up the wound and stimulate the healing cascade. It allows the wound to progress from the inflammatory to the proliferative phase of wound healing. Wound Dressing: See Nursing Notes for details. . Topical Rx: Right lateral distal leg: Wound flushed with 10 cc of saline solution. Pat dry. Promogran applied to the wound bed. Covered with a layer of dry max, 4x4's and ABD Pad. Profore Multiple layer Application: A three layer system applied to the both lower extremities. A layer of cast padding, crepe bandage, light compression bandage, followed with a layer of coban and stockinet from behind the toes to 1 below the knee. Toes were warm and pink before and post application. + dorsal pedis pulse on palpation. It was demonstrated to the patient how to check for adequate circulation. If the patient exhibits a change in color to the extremity: change in temperature, increased pain, or the compression wrap becomes wet or to tight, the patient has been instructed to remove the wrap or go to the Emergency Department. Patient voices understanding with intent to comply. CirAids to be ordered for maintenance therapy. Use pneumatic compression pumps twice daily with 40-50 mmhg compression Systemic Rx: Doxycycline 100 mg by mouth twice daily x 14 days and zinc 220 mg by mouth daily x 14 days (Completed.) Nutritional Support: MVI, Zinc Supplement and Protein Supplement Patient is instructed to continue a healthy, well-balanced diet for nutritional support for optimal healing. Protein is the most important nutrient for wound healing. Eating adequate amounts of protein allows the body to create new cells and chemicals to heal the wound, and increases the body?s ability to fight infection. Eating high protein foods daily is recommended such as: lean meats, fish, poultry, cheese, milk, yogurt, eggs and legumes. Vitamins and minerals provide a full range of nutrients for wound healing. It can help jump start the body's production of cells and chemicals needed for healing. Vitamins and minerals can be obtained through healthy foods in your diet and by taking a multiple vitamin supplement. Vitamin C is essential for collagen synthesis. Collagen and fibroblasts compose the basis for the structure of a new wound bed. Also, a deficiency of Vitamin C prolongs the healing time and contributes to reduced resistance to infection. Laboratory: We will obtain wound cultures to determine bacterial load. Results positive for few Enterobacter cloacae complex and many Staph aureus. No anaerobic organisms or fungal elements. Wound cultures are collected to assess level of bacterial bio-burden. Excessive bio-burden can result in inflammatory and proliferative phase stagnation as well as compromise of normal wound healing physiology. Bacterial proliferation, biofilm production, critical colonization and the development of resistant organism can lead to wound infection, wound deterioration and devastating tissue loss. Knowing the organism that populated the wound can help direct therapy, particularly anti-microbial dressing choices. Vascular Evaluation: PVRs for both lower extremities to evaluate for arterial insufficiency to see if poor circulation is an issue regarding her slow healing. Based on vascular studies, patient to see Dr. Lili Mcnair for further evaluation and management of venous disease (valvular incompetency). Follow-up is scheduled in 1 week, sooner with any concerns or worsening symptoms. Luis Simons CNP Charge Capture: [id number] CNOV Observed: 01/13/2018 Status: COMPLETED Source: [facility] 11:00 AM CLINIC OTHER CAMPUS REPOSITORY Office Visit ([facility]) ROSA BELTRAN ([id number]) 1935 F Date Time Provider Department 01/13/18 11:00 AM LUIS SIMONS, (LO[facility]) [facility] During your visit today, we recorded the following information about you: Luis Simons APRN.CNP 03/09/2018 10:29 AM Addendum DATE OF VISIT: 01/13/2018 REASON FOR VISIT: Non-healing lower extremity wound. HISTORY OF PRESENT ILLNESS: Rosa Desai Devin is a 81 year old female who presents to the [facility] for further evaluation and management of a non-healing leg wound. She has a past medical history significant for atrial fibrillation on Coumadin, coronary artery disease,?COPD, hypertension, dyslipidemia and CHF.?Patient has felt mildly short of breath over the past month. ?Increase with exertion and lying flat. She is on 40 mg of Lasix twice a day. She still is urinating appropriately. She has not had any chest pain or palpitations. ?Fever, chills, or sweats. ?No productive cough. ?No wheezing. Upon taking patients vitals, her SPO2 level was from 76% - 85%. Patient stated she had shortness of breath. She was unable to finish her sentences without catching her breath. The tips of her fingers were cyanotic. Patient was sent to the ER for further evaluation. Tiffanie BARBOSA wheeled patient to the ER. INTERVAL HISTORY: Patient was sent tot he ED during her previous visit due to low oxygenation. She is now on 2 L of oxygen at all times. She denies any breathing difficulty at this time. She is an 81 year old white female with a long-standing history of swelling in her lower extremities secondary to lymphedema. Approximately 2 years ago, she sustained a fracture to her right ankle, requiring surgical intervention. The operative site became infected, and required prolonged treatment and eventually a skin graft for complete wound closure. As a result, the patient's ambulatory capacity has been impaired. Furthermore, she is morbidly obese which limits her ambulation. The patient leads a relatively sedentary lifestyle and requires a walker for ambulation. She spends a great part of her day in a sitting position. She sleeps with the head of the bed elevated. Swelling in her lower extremities has been on-going for many years. The patient has undergone a battery of diagnostic tests. A non-invasive lower extremity arterial study in December 2016 reveals normal-ankle brachial indices, bilaterally. Venous doppler examination on 01/14 reveals incompetence of the great saphenous veins, bilaterally. There is also incompetence of the small saphenous veins, bilaterally and the right accessory saphenous vein. At present, she has three wounds, 2 on the right distal leg and the other is on the left posterior calf. The left leg wound has been present for over a year and was managed with silver alginate, NPWT, Santyl, serial sharp wound debridements, compression therapy using Surepress and compression pumps. Patient's wound cultures over the past several months have grown out Enterobacter cloacae, MRSA, coag-staph aureus, and in January grew out Pseudomonas, managed with oral antibiotics. IIn July of this year, she developed a new wound on the right lateral distal leg, then in July, she experience cellulitis of both legs requiring hospitalization. In the last year, she has been followed by Dr. Jaskaran Chance at the [facility] [place] [facility]. It was felt that her home support system was inadequate and that she may not have the resources in her home environment to appropriately care for her needs. In this regard, a geriatric social work professor consultation had been recommended on several occassions, but patient apparently insisted on remaining in her home environment despite that there was thought that is may be less than optimal. The patient is here at the [facility] for a second opinion regarding management of the abovementioned bilateral lower extremity wounds. She offers no other complaints. She denies any fevers, chills, wound-related pain or other related symptoms. 12/30/17 Patient presents for follow-up. Overall, her lower extremity wounds are progressing favorably. One of the three is now healed. The remaining two show evidence of wound contraction and granulation tissue formation. To date, wounds have been managed with sharp debridement, collagen/anti-microbial dressing, compression therapy and nutritional support. She offers no new complaints. The edema in her lower extremities is well-controlled. She denies any fever, chills or other related symptoms. PAST MEDICAL HISTORY Diagnosis Date - Acquired hypothyroidism - Acute respiratory failure with hypoxia (HCC) 09/30/2017 - Atrial fibrillation ([facility]) - CAD (coronary artery disease) Dr. Brenda Awan Hts, Promus element KIMMY LAD 11/20/2012, Stress test 04/2014 inferoapical reversible ischemia,small LVEF 48-50%, LHC 12/2014 L main-normal, LAD widely patent, Cx diffuse mild luminal irregularities with 80%focal stenosis distal, RCA dominant with minimal luminal irregularities. 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 - Pure hypercholesterolemia - Rheumatoid arthritis ([facility]) 2007 - Sleep apnea - Stented coronary artery 12/29/2016 PAST SURGICAL HISTORY Procedure Laterality Date - CC CORONARY STENT 11/20/2012 KIMMY LAD - CC CORONARY STENT 12/20/2014 KIMMY, Cfx - SECTION HX - COLONOSCOPY 06/10/2017 [facility], Nonspecific cecal ulcer - GASTRIC BYPASS HX 1986 - HERNIA REPAIR HX 1987; 1989 - PAST SURGICAL HISTORY OF Right 09/2015 right tibia fracture ORIF - PAST SURGICAL HISTORY OF Right 01/20/2016 Removal of hardware, right tibia - TOTAL KNEE REPLACEMENT Right 2003 [facility]. - TOTAL KNEE REPLACEMENT Left 2004 [facility]. MEDICATIONS ergocalciferol, vitamin D2, (DRISDOL) 50,000 unit capsule Take 1 capsule by mouth once each week. levothyroxine (LEVOXYL) 100 mcg tablet Take 1 tablet by mouth once daily. Take on empty stomach. For Thyroid. gabapentin (NEURONTIN) 300 mg capsule Take 1 capsule by mouth twice daily. metoprolol tartrate, short acting, (LOPRESSOR) 50 mg tablet TAKE ONE TABLET BY MOUTH TWICE DAILY furosemide (LASIX) 40 mg tablet Take 1 tablet by mouth twice daily. COMPOUNDED PRESCRIPTION Calcium Alginate 4x4 Dressing, change daily Dx: Blister left leg with infection S80.822A, L08.9; Lymphedema I89.0. Wound dimensions: 4 x 3 cm acetaminophen (TYLENOL) 500 mg tablet Take 1,000 mg by mouth every 8 hours as needed. aspirin, enteric coated (ASPIRIN, ENTERIC COATED) 81 mg EC tablet Take 81 mg by mouth once daily. warfarin (COUMADIN) 1 mg tablet Take 1 mg by mouth daily as directed. Take 1 tablet (1mg) by mouth once daily. Take with 1 x 3mg tablet to total 4mg by mouth once daily. warfarin (COUMADIN) 3 mg tablet Take 3 mg by mouth daily as directed. Take 1 tablet (3mg) by mouth once daily. Take with 1 x 1mg tablet to total 4mg by mouth once daily. lisinopril (ZESTRIL) 2.5 mg tablet Take 2.5 mg by mouth once daily. omeprazole (PRILOSEC) 20 mg capsule Take 20 mg by mouth once daily. spironolactone (ALDACTONE) 25 mg tablet Take 25 mg by mouth once daily. docusate sodium (COLACE) 100 mg capsule Take 100 mg by mouth once daily as needed. therapeutic multivitamin w/ iron (THERAGRAN-M) 9 mg iron-400 mcg tablet Take 1 tablet by mouth once daily. ALLERGIES No Known Allergies FAMILY HISTORY: Patient's father in his 70s with a history of arthritis. Her mother at the age of 90 with a history of arthritis. SOCIAL HISTORY Patient is a , lives alone, but has a son nearby. She has 6 children. Substance Use Topics - Smoking status: Passive Smoke Exposure - Never Smoker - Smokeless tobacco: Never Used Comment: smoked for 40 years - Alcohol use No REVIEW OF SYSTEM: PAIN ASSESSMENT: Negative for pain, history of chronic pain, or current treatment for a chronic pain condition. GENERAL: No weight loss, malaise or fevers HEENT: Negative for frequent or significant headaches, No changes in hearing or vision, no nose bleeds or other nasal problems NECK: Negative for lumps, goiter, pain and significant neck swelling RESPIRATORY: Negative for cough, hemoptysis, wheezing, positive for shortness of breath CARDIOVASCULAR: Negative for chest pain,palpitations; has chronic leg swelling GI: No nausea, vomiting, or diarrhea : No history of dysuria, frequency or incontinence MUSCULOSKELETAL: Negative for joint pain or swelling, back pain or muscle pain SKIN: As per HPI. Negative for any other lesions, rash, and itching PSYCH: Negative for sleep disturbance, mood disorder and recent psychosocial stressors HEMATOLOGY/LYMPHOLOGY: Negative for prolonged bleeding, bruising easily or swollen nodes ENDOCRINE: Negative for cold or heat intolerance, polyuria, polydipsia and goiter NEURO: No history of headaches, syncope, paralysis, seizures or tremors 01/13/18 1100 BP: 135/69 Pulse: 60 Resp: 16 Temp: 36.5 ?C (97.8 ?F) TempSrc: Oral SpO2: 94% Weight: 88.1 kg (194 lb 4.8 oz) PHYSICAL EXAMINATION: HEENT: PERRLA , sclera non-icteric, EOM intact, mucous membrane moist, pink and w/o lesions Comments: Neck: Supple, no bruit, no masses, trachea midline Comments: Chest: Lungs clear to auscultation, no accessory muscle use for respiration Comments: Heart: Regular rate/rhythm, normal S1,S2, no murmur, rubs or gallops Comments: Abdomen: Soft, non-tender, non-distended, + bowel sounds, no bruit, no organomegaly Comments: Extremity: Dorsalis pedis : Present (Y) Absent Diminished Doppler Posterior Tibialis: Present (Y) Absent Diminished Doppler Capillary Refill: < 3 sec. (Y) > 3 sec. 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 10/14/17 WBC 8.4, Hgb 12.2, Hct 38.5, PLT 211, Glu 91, BUN 24, Cr 0.88, Na 136, K 4.7, Cl 100, Albumin 3.6, Total protein 9.1 11/04/17 Venous Doppler Study Bilateral Lower Extremities IMPRESSION RIGHT SIDE - DEEP VEINS Negative for acute deep vein thrombosis in vessels visualized. Positive for valvular incompetency in the common femoral vein and femoral vein. Lymph node noted, within the groin, measuring 2.75 x 2.71 x .809cm. Cystic structure noted, within the popliteal fossa, measuring 2.17 x 2.67 x 1.49cm. ? RIGHT SIDE - SUPERFICIAL VEINS Positive for valvular incompetency in the great saphenous vein. REFLUX ONLY NOTED AT PROXIMAL THIGH. Vessel becomes tortuous branching from proximal to distal calf. The anterior lateral branch is negative for incompetency. Positive for valvular incompetency in the small saphenous vein. REFLUX ONLY NOTED AT DISTAL CALF. LEFT SIDE - DEEP VEINS Negative for acute deep vein thrombosis in vessels visualized. Positive for valvular incompetency in the femoral vein at the mid thigh. LEFT SIDE - SUPERFICIAL VEINS Positive for valvular incompetency in the great saphenous vein. REFLUX ONLY NOTED AT MID CALF. Negative for valvular incompetency in the small saphenous vein. No previous scans for comparison; however, chronic appearing superficial thrombophlebitis in the great saphenous vein at the distal calf. ? Technologist: Cleo Magdaleno RVT Ordering physician: Luis Simons ? Interpreting physician: Vishal Torres MD, RVT ? 01/24/17 Segmental arterial doppler study bilateral lower extremities Findings: NIMISHA 1.04 to the right and 1.0 to the left. Based upon the findings of this resting non-invasive lower extremity arterial study, arterial perfusion to ankle level appears to be relatively normal bilaterally. Triphasic and biphasic waveforms were noted at ankle level bilaterally. Resting ankle- brachial indices were bilaterally normal. ? 08/01/17 X-Ray 3-View Right Ankle Impression: There is prior open reduction internal fixation of the fibula which appears to be relatively intact allowing for advanced bony osteopenia. There is an irregular appearance of the lateral side distal tibia which is compatible with a prior fracture for which a new fracture on the lateral side is not excluded. The fracture could be potentially be associated with new trauma or potentially infection. Recommend consideration for follow- up study such as MRI or potentially three-phase bone scan. ? Flattened appearance of the arch of the foot with degenerative change of the tarsotarsal joints. ? Diffuse soft tissue swelling. ? Electronically Signed: Kelly Camarena MD at 20:15 EDT Tel , Service support , ? 10/14/17 XR 2 View Tib/Fib (Left) Findings: Left tibia-fibula: Tibial component of the joint prosthesis noted without associated abnormal lucency. No acute fracture or bony destruction. Right tibia and fibula: Plate and screw fixation remote distal fibular fracture. There is also remote tibial fracture with residual posterior angulation. Ghost tracks from previous tibial hardware. Tibial component of the joint prosthesis noted without associated abnormal lucency. No acute fracture or bony destruction. ? Stereotype Finisher: DWIGHT ? Transcribe Date/Time: Oct 14 2017 ?4:02P Dictated by : ZURDO SANTOS MD ? 10/14/17 XR 2 View Tib/Fib (Right) Findings: Left tibia-fibula: Tibial component of the joint prosthesis noted without associated abnormal lucency. No acute fracture or bony destruction. Right tibia and fibula: Plate and screw fixation remote distal fibular fracture. There is also remote tibial fracture with residual posterior angulation. Ghost tracks from previous tibial hardware. Tibial component of the joint prosthesis noted without associated abnormal lucency. No acute fracture or bony destruction. ? Stereotype Finisher: DWIGHT ? Transcribe Date/Time: Oct 14 2017 ?4:02P Dictated by : ZURDO SANTOS MD ? 10/14/17 XR 2 View Tib/Fib (Left) Findings: Left tibia-fibula: Tibial component of the joint prosthesis noted without associated abnormal lucency. No acute fracture or bony destruction. Right tibia and fibula: Plate and screw fixation remote distal fibular fracture. There is also remote tibial fracture with residual posterior angulation. Ghost tracks from previous tibial hardware. Tibial component of the joint prosthesis noted without associated abnormal lucency. No acute fracture or bony destruction. WOUND ASSESSMENT: Wound Number: 1 First Assessed Date: 10/14/17 Pre-existing: YES Location: Leg Orientation: Right, Lateral and Distal Wound Etiology: Venous Depth of Tissue Injury (Non-pressure): Full Thickness Diabetic Wounds:N/A Pressure Injury: N/A Pre-Measurements Initial (First Visit): 3.5 cm length x 4.0 cm width x 0.5 cm depth Post Measurement (Current): 3.0 cm length x 4.0 cm width x 0.4 cm depth % Healing Rate/#Weeks: 36.5 % -- Week 7 Wound Bed (Post-debridement): 100% red % of Healthy tissue: Undermining: No Tunneling: No Tendon/bone exposed: NO Wound Edge/Margins: Irregular wound edges and Edge attached to base Periwound Tissue: Mild erythema, Wet (macerated), and Edema Exudate Amount:Moderate Consistency:Serous Odor:Minimal Infection/Critical Colonization Localized s/s: Non-healing and Increased exudate Systemic s/s: None Local/systemic Rx: None Wound Healing Status: Chronic Clinically presenting as: Stalled wound healing Current topical treatment: Iodoflex Wound Number: 2 First Assessed Date: 10/14/17 Pre-existing: YES Location: Leg Orientation: Right, Medial and Distal Wound Etiology: Surgical Depth of Tissue Injury (Non-pressure): Partial Thickness Diabetic Wounds:N/A Pressure Injury: N/A Pre-Measurements Initial (First Visit): 0.5 cm length x 0.4 cm width x 0.1 cm depth Post Measurement (Current): Epithelialized % Healing Rate/#Weeks: Week 1 -- Healed Wound Bed (Post-debridement): % of Healthy tissue: Undermining: No Tunneling: No Tendon/bone exposed: NO Wound Edge/Margins: Normal, intact, Irregular wound edges and Edge attached to base Periwound Tissue: Normal, intact,uninvolved tissue and Dry,flaky Exudate Amount: None Consistency: None Odor:None Infection/Critical Colonization Localized s/s: None and Edema Systemic s/s: None Local/systemic Rx: None Wound Healing Status: Chronic Clinically presenting as: Healed Current topical treatment: Iodoflex Wound Number: 3 First Assessed Date: 10/14/17 Pre-existing: YES Location: Leg (calf) Orientation: Left and Posterior Wound Etiology: Venous Depth of Tissue Injury (Non-pressure): Full Thickness Diabetic Wounds:N/A Pressure Injury: N/A Pre-Measurements Initial (First Visit): 1.3 cm length x 1.2 cm width x 0.1 cm depth Post Measurement (Current): Epithelialized % Healing Rate/#Weeks: 100 % -- Week 5 Wound Bed (Post-debridement): 100% [employer] % of Healthy tissue: Undermining: No Tunneling: No Tendon/bone exposed: NO Wound Edge/Margins: Well-defined wound edges and Edge attached to base Periwound Tissue: [employer], dry and intact, No fluctuance, induration or advancing soft tissue necrosis or ischemia Exudate: Nonr Consistency: None Odor:None Infection/Critical Colonization: N/A Localized s/s: None Systemic s/s: None Local/systemic Rx: None Wound Healing Status: Chronic Clinically presenting as: Healed Current topical treatment: Collagen IMPRESSION: 1. Non-healing right and left lower extremity wounds ( #1 and #3) in the setting of chronic venous insufficiency with secondary lymphedema. 2. Recurrent right medial leg wound s/p STSG in the setting of chronic edema. 3. Significant lower extremity edema secondary to underlying chronic venous insufficiency with secondary lymphedema. 4. Multiple risk factors or co-morbidities that may contribute to wound healing difficulties include hypothyroid disease, chronic atrial fibrillation on anticoagulation, coronary artery disease, COPD, dyslipidemia, hypertension, muscle weakness, osteoarthritis, GERD, depression and obesity. 5. Wound cultures positive for Enterobacter cloacae and Staph aureus most likely increased colonization. 6. Very good glucose control based on recent HgbA1c. 7. Zinc insufficiency ( precursor for collagen synthesis. 8. No significant arterial disease based on recent PVRs. 9. No evidence of osteomyelitis based on recent XRs. 10. Valvular incompetency involving the right common femoral vein , right femoral vein, right great saphenous vein, left femoral vein (mid thigh) and left great saphenous vein (mid thigh). TREATMENT PLAN: Debridement Type: Autolytic Enzymatic Mechanical Surgical Sharp (Y) Other: ?? Sharp debridement is performed to freshen up the wound and stimulate the healing cascade. It allows the wound to progress from the inflammatory to the proliferative phase of wound healing. Wound Dressing: See Nursing Notes for details. . Topical Rx: Right lateral distal leg: Wound flushed with 10 cc of saline solution. Pat dry. Promogran applied to the wound bed. Covered with a layer of dry max, 4x4's and ABD Pad. Profore Multiple layer Application: A three layer system applied to the both lower extremities. A layer of cast padding, crepe bandage, light compression bandage, followed with a layer of coban and stockinet from behind the toes to 1 below the knee. Toes were warm and pink before and post application. + dorsal pedis pulse on palpation. It was demonstrated to the patient how to check for adequate circulation. If the patient exhibits a change in color to the extremity: change in temperature, increased pain, or the compression wrap becomes wet or to tight, the patient has been instructed to remove the wrap or go to the Emergency Department. Patient voices understanding with intent to comply. CirAids to be ordered for maintenance therapy. Use pneumatic compression pumps twice daily with 40-50 mmhg compression Systemic Rx: Doxycycline 100 mg by mouth twice daily x 14 days and zinc 220 mg by mouth daily x 14 days (Completed.) Nutritional Support: MVI, Zinc Supplement and Protein Supplement Patient is instructed to continue a healthy, well-balanced diet for nutritional support for optimal healing. Protein is the most important nutrient for wound healing. Eating adequate amounts of protein allows the body to create new cells and chemicals to heal the wound, and increases the body?s ability to fight infection. Eating high protein foods daily is recommended such as: lean meats, fish, poultry, cheese, milk, yogurt, eggs and legumes. Vitamins and minerals provide a full range of nutrients for wound healing. It can help jump start the body's production of cells and chemicals needed for healing. Vitamins and minerals can be obtained through healthy foods in your diet and by taking a multiple vitamin supplement. Vitamin C is essential for collagen synthesis. Collagen and fibroblasts compose the basis for the structure of a new wound bed. Also, a deficiency of Vitamin C prolongs the healing time and contributes to reduced resistance to infection. Laboratory: We will obtain wound cultures to determine bacterial load. Results positive for few Enterobacter cloacae complex and many Staph aureus. No anaerobic organisms or fungal elements. Wound cultures are collected to assess level of bacterial bio-burden. Excessive bio-burden can result in inflammatory and proliferative phase stagnation as well as compromise of normal wound healing physiology. Bacterial proliferation, biofilm production, critical colonization and the development of resistant organism can lead to wound infection, wound deterioration and devastating tissue loss. Knowing the organism that populated the wound can help direct therapy, particularly anti-microbial dressing choices. Vascular Evaluation: PVRs for both lower extremities to evaluate for arterial insufficiency to see if poor circulation is an issue regarding her slow healing. Based on vascular studies, patient to see Dr. Lili Mcnair for further evaluation and management of venous disease (valvular incompetency). Follow-up is scheduled in 1 week, sooner with any concerns or worsening symptoms. Luis Simons CNP Charge Capture: [id number] Luis Simons, GRUPO.GROUND SYSTEMS ENGINEER 04/13/2018 2:45 PM Signed A procedural pause was conducted immediately prior to starting the wound debridement to verify correct patient identity using two patient identifiers: the correct site and correct procedure. Permission from the patient to perform the procedure was obtained. After providing local analgesia with Lidocaine 2% gel, a full-thickness excisional debridement of the right lower leg wound was performed and carried through the skin and subcutaneous tissue, using a sterile #15 blade, iris scissors, and forceps to remove the non-viable or devitalized tissue. The debridement extended into the viable wound margin/s to promote a healthy, active wound edge to support healing. The patient tolerated the procedure well without complications. Hemostasis was achieved with direct pressure. The wound/s was/were then copiously irrigated with sterile normal saline and dressings were applied. Peter Jason MA, TORY 01/13/2018 11:42 AM Addendum WOUND CARE INSTRUCTIONS Wound location: Right lower leg wound. Venous insufficiency bilateral lower legs Please keep dressing clean and dry 1. Wash your hands with soap and water before and after wound care. 2. Gather all supplies needed. 3. Wash wound with Dial soap and water. Pat dry. 4. Apply collagen to the wound base. 5. Cover with 4x4's, Dry Max, and ABP pad 6. Apply bilateral 3 Layer Profore from behind the toes to 1 below the knee. 7. Change your dressing EVERY THREE (3) DAYS You may purchase cast covers to wear to allow you to shower To give your wound the best chance to heal: - Eat three balanced meals daily focusing on the protein - Control swelling by elevating the extremity above your heart - exercise the extremity - Complete your wound care instructions - Vitamin C 500 mg twice daily - Multiple Vitamin Daily - Drink a protein shake daily - continue home care Report any of the following changes to the Wound Center at [phone] or go to the Emergency Department: ? Fever or chills ? Increased drainage ? Green or yellow drainage ? Foul odor ? Increased pain ? Hardness around the wound ? Redness, warmth or swelling of the surrounding tissue ? Color change to the wound PLAN: Return to the Wound Center in 1 week to see Marlen Please have xray and labs done as soon as possible Wound culture will be read at your next visit Copy of wound care instructions faxed to [facility] Home Care Luis Simons GROUND SYSTEMS ENGINEER/csm Peter Jason MA, TORY 01/13/2018 11:38 AM Signed Nursing Note Dx: Venous insufficiency with ulcer with secondary lymphedema See provider note for wound description and measurements Patient has removed compression wraps yesterday at home. Dressing removed with dakins Saline 0.9% solution applied to all wounds In the presence and direction of the provider wound care as written below: Photos taken Right lateral distal leg: Wound flushed with 10 cc of saline solution. Pat dry. Promogran applied to the wound bed. Covered with a layer of dry max, 4x4's and ABD Pad. Profore Multiple layer Application: A three layer system applied to the both lower extremities. A layer of cast padding, crepe bandage, light compression bandage, followed with a layer of coban and stockinet from behind the toes to 1 below the knee. Toes were warm and pink before and post application. + dorsal pedis pulse on palpation. It was demonstrated to the patient how to check for adequate circulation. If the patient exhibits a change in color to the extremity: change in temperature, increased pain, or the compression wrap becomes wet or to tight, the patient has been instructed to remove the wrap or go to the Emergency Department. Patient voices understanding with intent to comply. #1 Right lateral distal leg: Lido gel applied prior to the SQ debridement per provider. L: 3.0 cm x W: 3.8 cm x D: 0.5 cm #2 Right medial distal leg: Remains closed. #3 left distal calf: Remains closed. Measurements: Right Calf: 46 cm Right Ankle: 31 cm Left Calf: 51 cm Left Ankle: 28 cm PLAN: Return to the Wound Center in 1 week to see Marlen Fernandez authorization for Apligraf Copy of wound care instructions faxed to [facility] Home Care EDUCATION: The patient/family was instructed how to wash the wound(s) with dial soap, rinsing with water, AND patting dry. Visual demonstration on how to apply the dressing. Signs AND symptoms of infection were reviewed: Increased redness, swelling, pain, green, yellow drainage, fever or chills all would need to be evaluated by a Physician. Patient received typed homegoing wound care instructions and has expressed intent to comply. Referring Provider: MANI NEWMAN [[id number]] Allergies As of Date: 01/13/2018 (No Known Allergies) Date Reviewed: 01/06/2018 Reviewed by: Megan Howard) Parker - Fully Assessed Primary Visit Diagnosis:Venous stasis ulcer of right lower leg with edema of right lower leg (HCC) [I83.019, I83.891, L97.919, R60.9] Other Visit Diagnosis:Venous insufficiency (chronic) (peripheral) [I87.2] Order(s):PREALBUMIN BLD [SQPREALB] Order #: [id number] FUTURE XR TIBIA FIBULA 2V AP/LAT RT [[id number]] Order #: [id number] FUTURE WOUND CULTURE AND GRAM STAIN [SQWCUL] Order #: [id number]. #:[id number] ANAEROBE CULTURE [SQANACUL] Order #: [id number]. #:[id number] FUNGAL CULTURE [SQFCUL] Order #: [id number]. #:[id number] Prescriptions as of 01/13/2018 Sig: X SPIRONOLACTONE 25 MG TABLET Take 1 tablet by mouth twice * X METOPROLOL TARTRATE 25 MG TAB* Take 0.5 tablets by mouth twi* VITAMIN C ORAL Take 1 tablet by mouth twice * X METOLAZONE 2.5 MG TABLET Take 1 tablet by mouth once d* X WARFARIN 1 MG TABLET TAKE ONE TABLET BY MOUTH ONCE* SILVER SULFADIAZINE 1 % TOPIC* Apply to leg wounds as direct* ZINC SULFATE 220 MG TABLET Take 1 tablet by mouth once d* ACETAMINOPHEN 500 MG TABLET Take 1,000 mg by mouth every * ASPIRIN 81 MG TABLET,DELAYED * Take 81 mg by mouth every jean* MULTIVITAMIN-IRON 9 MG-FOLIC * Take 1 tablet by mouth once d* X WARFARIN 1 MG TABLET Take 3 mg by mouth daily as d* X WARFARIN 3 MG TABLET Take 3 mg by mouth daily as d* X LISINOPRIL 2.5 MG TABLET Take 2.5 mg by mouth every ev* X OMEPRAZOLE 20 MG CAPSULE,LUIS MIGUEL* Take 20 mg by mouth once oliver* X DOCUSATE SODIUM 100 MG CAPSULE Take 100 mg by mouth once yuly* X ERGOCALCIFEROL (VITAMIN D2) 5* Take 1 capsule by mouth once * LEVOTHYROXINE 100 MCG TABLET Take 1 tablet by mouth once d* X GABAPENTIN 300 MG CAPSULE Take 1 capsule by mouth twice* X FUROSEMIDE 40 MG TABLET Take 1 tablet by mouth twice * COMPOUNDED PRESCRIPTION Calcium Alginate 4x4 Dressing* Problem List As Of Date 01/13/2018 Noted Resolved Gastroesophageal reflux disease without esophag*INVALID FOR* Chronic atrial fibrillation (HCC) [I48.2] INVALID FOR* Priority: B Pure hypercholesterolemia [E78.00] Hypertension [I10] Priority: D Acquired hypothyroidism [E03.9] Priority: F CAD (coronary artery disease) [I25.10] More... Depressive disorder [F32.9] INVALID FOR*07/18/2017 Primary osteoarthritis involving multiple joint*INVALID FOR* Lymphedema of both lower extremities [I89.0] INVALID FOR* Priority: C Mouth dryness [R68.2] INVALID FOR* Muscular weakness [M62.81] INVALID FOR* Dorsalgia [M54.9] INVALID FOR* Stented coronary artery [Z95.5] INVALID FOR* Priority: A Gastric bypass status for obesity [Z98.84] INVALID FOR* Priority: C Bilateral leg ulcer (HCC) [L97.919, L97.929] INVALID FOR* Priority: E Polyneuropathy (HCC) [G62.9] INVALID FOR* Cecal ulcer [K63.3] INVALID FOR* Acute respiratory failure with hypoxia (HCC) [J*INVALID FOR*10/10/2017 Priority: Severe Anticoagulation goal of INR 2 to 3 [Z51.81, Z79*INVALID FOR* Priority: Mild More... ANASARCA/HYPOXIA 09/30/17 ADMISSION SUMMARY [Z9*INVALID FOR* Priority: Very Severe More... Skin bulla [R23.8] INVALID FOR* Priority: Mild More... Respiratory failure with hypoxia (HCC) [J96.91] INVALID FOR* Priority: Severe Heart failure with preserved ejection fraction *INVALID FOR* Priority: A Physical debility [R53.81] INVALID FOR* Priority: Moderate More... Requires continuous at home supplemental oxygen*INVALID FOR* More... Acute exacerbation of CHF (congestive heart mag*INVALID FOR* Other instructions from your clinician: WOUND CARE INSTRUCTIONS Wound location: Right lower leg wound. Venous insufficiency bilateral lower legs Please keep dressing clean and dry 1. Wash your hands with soap and water before and after wound care. 2. Gather all supplies needed. 3. Wash wound with Dial soap and water. Pat dry. 4. Apply collagen to the wound base. 5. Cover with 4x4's, Dry Max, and ABP pad 6. Apply bilateral 3 Layer Profore from behind the toes to 1 below the knee. 7. Change your dressing EVERY THREE (3) DAYS You may purchase cast covers to wear to allow you to shower To give your wound the best chance to heal: - Eat three balanced meals daily focusing on the protein - Control swelling by elevating the extremity above your heart - exercise the extremity - Complete your wound care instructions - Vitamin C 500 mg twice daily - Multiple Vitamin Daily - Drink a protein shake daily - continue home care Report any of the following changes to the Wound Center at [phone] or go to the Emergency Department: ? Fever or chills ? Increased drainage ? Green or yellow drainage ? Foul odor ? Increased pain ? Hardness around the wound ? Redness, warmth or swelling of the surrounding tissue ? Color change to the wound PLAN: Return to the Wound Center in 1 week to see Marlen Please have xray and labs done as soon as possible Wound culture will be read at your next visit Copy of wound care instructions faxed to [facility] Home Care Luis Ehren GROUND SYSTEMS ENGINEER/csm Visit Notes: >> Joshfadumo (Tory) Casie TORY TueJan 13, 2018 11:14 AM Status: Signed Nursing Note Dx: Venous insufficiency with ulcer with secondary lymphedema See provider note for wound description and measurements Patient has removed compression wraps yesterday at home. Dressing removed with dakins Saline 0.9% solution applied to all wounds In the presence and direction of the provider wound care as written below: Photos taken Right lateral distal leg: Wound flushed with 10 cc of saline solution. Pat dry. Promogran applied to the wound bed. Covered with a layer of dry max, 4x4's and ABD Pad. Profore Multiple layer Application: A three layer system applied to the both lower extremities. A layer of cast padding, crepe bandage, light compression bandage, followed with a layer of coban and stockinet from behind the toes to 1 below the knee. Toes were warm and pink before and post application. + dorsal pedis pulse on palpation. It was demonstrated to the patient how to check for adequate circulation. If the patient exhibits a change in color to the extremity: change in temperature, increased pain, or the compression wrap becomes wet or to tight, the patient has been instructed to remove the wrap or go to the Emergency Department. Patient voices understanding with intent to comply. #1 Right lateral distal leg: Lido gel applied prior to the SQ debridement per provider. L: 3.0 cm x W: 3.8 cm x D: 0.5 cm #2 Right medial distal leg: Remains closed. #3 left distal calf: Remains closed. Measurements: Right Calf: 46 cm Right Ankle: 31 cm Left Calf: 51 cm Left Ankle: 28 cm PLAN: Return to the Wound Center in 1 week to see Marlen Submit authorization for Apligraf Copy of wound care instructions faxed to [facility] Home Care EDUCATION: The patient/family was instructed how to wash the wound(s) with dial soap, rinsing with water, AND patting dry. Visual demonstration on how to apply the dressing. Signs AND symptoms of infection were reviewed: Increased redness, swelling, pain, green, yellow drainage, fever or chills all would need to be evaluated by a Physician. Patient received typed homegoing wound care instructions and has expressed intent to comply. Encounter Status:Closed by LUIS SIMONS on 01/19/18 PROCEDURE Observed: 01/13/2018 Status: COMPLETED Source: [facility] 11:00 AM CLINIC OTHER CAMPUS REPOSITORY O ID: [id number] Author: Luis Lyles (Tray Room Worker) Carla Service: (none) Author Type: Nurse Practitioner Type: Procedures Filed: 04/13/2018 2:45 PM Note Text: A procedural pause was conducted immediately prior to starting the wound debridement to verify correct patient identity using two patient identifiers: the correct site and correct procedure. Permission from the patient to perform the procedure was obtained. After providing local analgesia with Lidocaine 2% gel, a full-thickness excisional debridement of the right lower leg wound was performed and carried through the skin and subcutaneous tissue, using a sterile #15 blade, iris scissors, and forceps to remove the non-viable or devitalized tissue. The debridement extended into the viable wound margin/s to promote a healthy, active wound edge to support healing. The patient tolerated the procedure well without complications. Hemostasis was achieved with direct pressure. The wound/s was/were then copiously irrigated with sterile normal saline and dressings were applied. BASIC PANEL Collected: 01/11/2018 Status: F Source: [facility] 2:30 PM HEALTH SYSTEM REPOSITORY TYPE CODE TESTS RESULT OUT OF REFERENCE UNITS RANGE LAB NA(LOINC) 136-145 mEq/L Sodium Blood 138 LAB K(LOINC) 3.5-5.1 mEq/L Potassium Blood 4.6 LAB CL(LOINC) 98-107 mEq/L Chloride Blood 107 LAB CO2(LOINC) 21-32 mEq/L CO2 Blood 24 LAB GLU(LOINC) 70-99 mg/dL Glucose Blood 79 LAB BUN(LOINC) 7-18 mg/dL BUN High Blood 19 LAB CREA(LOINC 0.51-0.95 mg/dL ) Creatinine Blood 0.78 LAB CA(LOINC) 8.5-10.1 mg/dL Calcium Blood 8.8 LAB ANGAP(LOIN 8-16 C) Anion Gap 12 Performed By: #### P8 #### [place] [id number] MDRD GFR Collected: 01/11/2018 Status: F Source: [facility] 2:30 PM HEALTH SYSTEM REPOSITORY TYPE CODE TESTS RESULT OUT OF RANGE REFERENCE UNITS LAB GFRFN(LOINC >60mL/min/1.73m ) 2 eGFR >60 Result Comment: If the patient is , multiply the result by 1.210. Performed By: #### GFR #### [facility] [address] [place] [id number] PROGRESS Observed: 01/06/2018 Status: COMPLETED Source: [facility] 1:51 PM CLINIC OTHER CAMPUS REPOSITORY HNO ID: [id number] Author: Corey Mckeon Service: (none) Author Type: Physician Type: Progress Notes Filed: 01/06/2018 5:10 PM Note Text: PERTINENT CARDIAC HISTORY ASHD - PCI LAD 2012, PCI Cx 2014 Takatsubo? HL HTN Lymphedema CHF Atrial fib Bilateral radial artery occlusion? ADHERENCE TO GUIDELINES ANKIT-I or ARB for HF with prior LVEF<40 (NQF 0081) - N/A ASA or Plavix for ASHD (NQF 0067) - met Beta louann for ASHD with prior CO or prior LVEF<40 (NQF 0070) - met Beta louann for HF with prior LVEF<40 (NQF 0083) - N/A ANKIT-I or ARB for ASHD with DM or prior LVEF<40 (NQF 0066) - met Statin therapy for ASHD or FHL or DM - to be started BMI documented and plan if >25 (NQF 0421) - lifestyle recommendation form Tobacco use screening and referral (NQF 0028) - lifestyle recommendation form Recommendation for whole food, plant based diet - lifestyle recommendation form CLINICAL IMPRESSION/PLAN: Rosa Beltran has significant volume overload. She would benefit from intensification of her diuretic therapy. Aldactone will be increased to twice daily. She will continue her current dose of furosemide and Zaroxolyn. I've asked for daily weights and report next week. Basic profile will be checked at that time as well. We may need to increase her Zaroxolyn as well. If there is no improvement in weight over the next several days, she's been advised to contact me. Blood pressure is slightly elevated today. Her Zestril may need to be increased as well. I've asked her to report vital signs next week. She will be seen by home health. We discussed the importance of weighing daily and restricting salt intake. Written and verbal health teaching given to patient, patient verbalizes understanding and agrees with treatment plan. This note was generated using Dragon voice recognition system, and there may be some incorrect words, spellings, and punctuation that were not noted in checking the note before saving. DIAGNOSIS FOR VISIT: CHF ASHD HISTORY OF PRESENT ILLNESS Rosa Beltran returns for follow-up of her coronary disease, hypertension and other cardiac issues. She was recently hospitalized with decompensated heart failure. Her beta louann was decreased due to relative bradycardia. There was significant weight loss with IV diuretic. Her weight initially decreased after discharge but has begun to go back up again. She has not been observing a strict salt restriction. She reports some worsening of shortness of breath over the last several days. She's had slightly more edema. She denies syncope, palpitations, TIAs, amaurosis and claudication. ALLERGIES: ALLERGIES No Known Allergies CURRENT OUTPATIENT MEDICATIONS: metoprolol tartrate, short acting, (LOPRESSOR) 25 mg tablet Take 0.5 tablets by mouth twice daily. ASCORBIC ACID (VITAMIN C ORAL) Take 1 tablet by mouth twice daily. warfarin (COUMADIN) 1 mg tablet TAKE ONE TABLET BY MOUTH ONCE DAILY OR DIRECTED WITH THE 3MG TABLETS acetaminophen (TYLENOL) 500 mg tablet Take 1,000 mg by mouth every 8 hours as needed. aspirin, enteric coated (ASPIRIN, ENTERIC COATED) 81 mg EC tablet Take 81 mg by mouth every evening. warfarin (COUMADIN) 1 mg tablet Take 1 mg by mouth daily as directed. As of 12/19/17: patient is only using 3mg tablets taking 1 x 3 mg tablet every day of the week. warfarin (COUMADIN) 3 mg tablet Take 3 mg by mouth daily as directed. As of 12/19/17: Patient takes 1 tablet (3mg) by mouth once daily every day of the week. lisinopril (ZESTRIL) 2.5 mg tablet Take 2.5 mg by mouth every evening. omeprazole (PRILOSEC) 20 mg capsule Take 20 mg by mouth once daily. spironolactone (ALDACTONE) 25 mg tablet Take 25 mg by mouth every evening. docusate sodium (COLACE) 100 mg capsule Take 100 mg by mouth once daily as needed. therapeutic multivitamin w/ iron (THERAGRAN-M) 9 mg iron-400 mcg tablet Take 1 tablet by mouth once daily. ergocalciferol, vitamin D2, (DRISDOL) 50,000 unit capsule Take 1 capsule by mouth once each week. levothyroxine (LEVOXYL) 100 mcg tablet Take 1 tablet by mouth once daily. Take on empty stomach. For Thyroid. gabapentin (NEURONTIN) 300 mg capsule Take 1 capsule by mouth twice daily. furosemide (LASIX) 40 mg tablet Take 1 tablet by mouth twice daily. metOLAzone (ZAROXOLYN) 2.5 mg tablet Take 1 tablet by mouth once daily. silver sulfADIAZINE (SILVADENE) 1 % cream Apply to leg wounds as directed. Zinc Sulfate 220 mg tab Take 1 tablet by mouth once daily for 14 days. COMPOUNDED PRESCRIPTION Calcium Alginate 4x4 Dressing, change daily Dx: Blister left leg with infection S80.822A, L08.9; Lymphedema I89.0. Wound dimensions: 4 x 3 cm PAST MEDICAL HISTORY Diagnosis Date - Acquired hypothyroidism - Acute respiratory failure with hypoxia (HCC) 09/30/2017 - Atrial fibrillation ([facility]) - CAD (coronary artery disease) Dr. Brenda Awan [facility], Promus element KIMMY LAD 11/20/2012, Stress test 04/2014 inferoapical reversible ischemia,small LVEF 48- 50%, LHC 12/2014 L main-normal, LAD widely patent, Cx diffuse mild luminal irregularities with 80%focal stenosis distal, RCA dominant with minimal luminal irregularities. 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 - Pure hypercholesterolemia - Rheumatoid arthritis ([facility]) 2007 - Sleep apnea - Stented coronary artery 12/29/2016 PAST SURGICAL HISTORY Procedure Laterality Date - CC CORONARY STENT 11/20/2012 KIMMY LAD - CC CORONARY STENT 12/20/2014 KIMMY, Cfx - SECTION HX - COLONOSCOPY 06/10/2017 [facility], Nonspecific cecal ulcer - GASTRIC BYPASS HX 1986 - HERNIA REPAIR HX 1987; 1989 - PAST SURGICAL HISTORY OF Right 09/2015 right tibia fracture ORIF - PAST SURGICAL HISTORY OF Right 01/20/2016 Removal of hardware, right tibia - TOTAL KNEE REPLACEMENT Right 2003 [facility] Gen. - TOTAL KNEE REPLACEMENT Left 2004 [facility]. No family history on file. 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 In [facility] for one year, and [facility] before that. Discharged home 2015. Lives alone in apartment under son's house. Homebound, does not drive. Uses a walker and wheelchair. No recent falls. REVIEW OF SYSTEMS: General: No chills, fever, weight loss, night sweats. Respiratory: No productive cough. Cardiac: As noted above. GI: No melena. : No dysuria. Musculoskeletal: No myalgias. PHYSICAL EXAMINATION: S/he is alert and in no distress. VITAL SIGNS: BP 161/79 Pulse 66 Wt 206 lb (93.4kg) SHEENT: Skin is warm and dry. No xanthelasmas appreciated. Pharynx is benign. There is no oral cyanosis. Neck: supple. No adenopathy or thyroid enlargement. Chest: Clear to percussion and auscultation. Trachea is midline. Air entry is equal. There is no chest wall tenderness. Cardiac: Irregularly irregular rhythm. S1 and S2 are normal. PMI is nondisplaced. There is a soft systolic ejection murmur. Carotids are brisk without bruits. JVP is less than 10 cm. Abdomen: Soft and nontender. There are no pulsatile masses or bruits. No liver enlargement. Bowel sounds are active. Extremities: 3 plus pitting edema with concomitant lymphedema. There are dressings which were not removed. There is no weeping . Pulses cannot be felt due to edema. No clubbing or cyanosis. Neurologic: Grossly normal motor and sensory. S/he is alert and oriented x4. Recent labs were reviewed. Renal function is mildly impaired, but stable. She is mildly anemic. Electronically Signed: Corey Mckeon MD January 06, 2018 1:51 PM CC:Mani Newman MD CNOV Observed: 01/06/2018 Status: COMPLETED Source: [facility] 1:30 PM CLINIC OTHER CAMPUS REPOSITORY Office Visit (AGCARDWST) ROSA BELTRAN ([id number]) 1935 F Date Time Provider Department 01/06/18 1:30 PM COREY MCKEON AGCARDWST During your visit today, we recorded the following information about you: Pulse Blood pressure Weight 66/minute 161/79 93.4 kg Corey Mckeon MD 01/06/2018 5:10 PM Addendum PERTINENT CARDIAC HISTORY ASHD - PCI LAD 2012, PCI Cx 2014 [place]? HL HTN Lymphedema CHF Atrial fib Bilateral radial artery occlusion? ADHERENCE TO GUIDELINES ANKIT-I or ARB for HF with prior LVEFANDlt;40 (NQF 0081) - N/A ASA or Plavix for ASHD (NQF 0067) - met Beta louann for ASHD with prior CO or prior LVEFANDlt;40 (NQF 0070) - met Beta louann for HF with prior LVEFANDlt;40 (NQF 0083) - N/A ANKIT-I or ARB for ASHD with DM or prior LVEFANDlt;40 (NQF 0066) - met Statin therapy for ASHD or FHL or DM - to be started BMI documented and plan if ANDgt;25 (NQF 0421) - lifestyle recommendation form Tobacco use screening and referral (NQF 0028) - lifestyle recommendation form Recommendation for whole food, plant based diet - lifestyle recommendation form CLINICAL IMPRESSION/PLAN: Rosa Beltran has significant volume overload. She would benefit from intensification of her diuretic therapy. Aldactone will be increased to twice daily. She will continue her current dose of furosemide and Zaroxolyn. I've asked for daily weights and report next week. Basic profile will be checked at that time as well. We may need to increase her Zaroxolyn as well. If there is no improvement in weight over the next several days, she's been advised to contact me. Blood pressure is slightly elevated today. Her Zestril may need to be increased as well. I've asked her to report vital signs next week. She will be seen by home health. We discussed the importance of weighing daily and restricting salt intake. Written and verbal health teaching given to patient, patient verbalizes understanding and agrees with treatment plan. This note was generated using [employer] voice recognition system, and there may be some incorrect words, spellings, and punctuation that were not noted in checking the note before saving. DIAGNOSIS FOR VISIT: CHF ASHD HISTORY OF PRESENT ILLNESS Rosa Beltran returns for follow-up of her coronary disease, hypertension and other cardiac issues. She was recently hospitalized with decompensated heart failure. Her beta louann was decreased due to relative bradycardia. There was significant weight loss with IV diuretic. Her weight initially decreased after discharge but has begun to go back up again. She has not been observing a strict salt restriction. She reports some worsening of shortness of breath over the last several days. She's had slightly more edema. She denies syncope, palpitations, TIAs, amaurosis and claudication. ALLERGIES: ALLERGIES No Known Allergies CURRENT OUTPATIENT MEDICATIONS: metoprolol tartrate, short acting, (LOPRESSOR) 25 mg tablet Take 0.5 tablets by mouth twice daily. ASCORBIC ACID (VITAMIN C ORAL) Take 1 tablet by mouth twice daily. warfarin (COUMADIN) 1 mg tablet TAKE ONE TABLET BY MOUTH ONCE DAILY OR DIRECTED WITH THE 3MG TABLETS acetaminophen (TYLENOL) 500 mg tablet Take 1,000 mg by mouth every 8 hours as needed. aspirin, enteric coated (ASPIRIN, ENTERIC COATED) 81 mg EC tablet Take 81 mg by mouth every evening. warfarin (COUMADIN) 1 mg tablet Take 1 mg by mouth daily as directed. As of 12/19/17: patient is only using 3mg tablets taking 1 x 3 mg tablet every day of the week. warfarin (COUMADIN) 3 mg tablet Take 3 mg by mouth daily as directed. As of 12/19/17: Patient takes 1 tablet (3mg) by mouth once daily every day of the week. lisinopril (ZESTRIL) 2.5 mg tablet Take 2.5 mg by mouth every evening. omeprazole (PRILOSEC) 20 mg capsule Take 20 mg by mouth once daily. spironolactone (ALDACTONE) 25 mg tablet Take 25 mg by mouth every evening. docusate sodium (COLACE) 100 mg capsule Take 100 mg by mouth once daily as needed. therapeutic multivitamin w/ iron (THERAGRAN-M) 9 mg iron-400 mcg tablet Take 1 tablet by mouth once daily. ergocalciferol, vitamin D2, (DRISDOL) 50,000 unit capsule Take 1 capsule by mouth once each week. levothyroxine (LEVOXYL) 100 mcg tablet Take 1 tablet by mouth once daily. Take on empty stomach. For Thyroid. gabapentin (NEURONTIN) 300 mg capsule Take 1 capsule by mouth twice daily. furosemide (LASIX) 40 mg tablet Take 1 tablet by mouth twice daily. metOLAzone (ZAROXOLYN) 2.5 mg tablet Take 1 tablet by mouth once daily. silver sulfADIAZINE (SILVADENE) 1 % cream Apply to leg wounds as directed. Zinc Sulfate 220 mg tab Take 1 tablet by mouth once daily for 14 days. COMPOUNDED PRESCRIPTION Calcium Alginate 4x4 Dressing, change daily Dx: Blister left leg with infection S80.822A, L08.9; Lymphedema I89.0. Wound dimensions: 4 x 3 cm PAST MEDICAL HISTORY Diagnosis Date - Acquired hypothyroidism - Acute respiratory failure with hypoxia (HCC) 09/30/2017 - Atrial fibrillation ([facility]) - CAD (coronary artery disease) Dr. Brenda Awan [facility], Promus element KIMMY LAD 11/20/2012, Stress test 04/2014 inferoapical reversible ischemia,small LVEF 48-50%, LHC 12/2014 L main-normal, LAD widely patent, Cx diffuse mild luminal irregularities with 80%focal stenosis distal, RCA dominant with minimal luminal irregularities. 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 - TOTAL KNEE REPLACEMENT Left 2004 [facility] Gen. No family history on file. 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 In [facility] for one year, and [facility] before that. Discharged home 2015. Lives alone in apartment under son's house. Homebound, does not drive. Uses a walker and wheelchair. No recent falls. REVIEW OF SYSTEMS: General: No chills, fever, weight loss, night sweats. Respiratory: No productive cough. Cardiac: As noted above. GI: No melena. : No dysuria. Musculoskeletal: No myalgias. PHYSICAL EXAMINATION: S/he is alert and in no distress. VITAL SIGNS: BP 161/79 Pulse 66 Wt 206 lb (93.4kg) SHEENT: Skin is warm and dry. No xanthelasmas appreciated. Pharynx is benign. There is no oral cyanosis. Neck: supple. No adenopathy or thyroid enlargement. Chest: Clear to percussion and auscultation. Trachea is midline. Air entry is equal. There is no chest wall tenderness. Cardiac: Irregularly irregular rhythm. S1 and S2 are normal. PMI is nondisplaced. There is a soft systolic ejection murmur. Carotids are brisk without bruits. JVP is less than 10 cm. Abdomen: Soft and nontender. There are no pulsatile masses or bruits. No liver enlargement. Bowel sounds are active. Extremities: 3 plus pitting edema with concomitant lymphedema. There are dressings which were not removed. There is no weeping . Pulses cannot be felt due to edema. No clubbing or cyanosis. Neurologic: Grossly normal motor and sensory. S/he is alert and oriented x4. Recent labs were reviewed. Renal function is mildly impaired, but stable. She is mildly anemic. Electronically Signed: Corey Mckeon MD January 06, 2018 1:51 PM CC:MD Corey Mckenna MD 01/06/2018 1:52 PM Signed Increase aldactone to twice a day. Weight every morning and call us next week with results Take BP daily and report next week LIFESTYLE CHANGE A healthy lifestyle is the most important component of your overall treatment plan. Please give serious thought to the following areas and commit to making halfway changes. EAT A WHOLE FOOD, PLANT BASED DIET The nutrition your body gets is more important than the medicine you take. What matters most is the overall way you eat. We encourage you to minimize the use of animal products (which include dairy and all meats except fatty fish) and use whole, unprocessed plant foods to provide your protein, vitamins and other nutrients. We have a lot of information to share with you on this topic. We also hold Shared Medical Appointments, where you can come visit with Dr. Mckeon in the company of other patients and spend over an hour talking about the challenges of changing the way you eat. This is not a ANDquot;dietANDquot;. It is a way of life that you will keep with you. EXERCISE REGULARLY It is not important to spend hours in the gym, lifting weights and perspiring heavily. A total of 2-3 hours per week of aerobic (causing you to be moderately short of breath) exercise is sufficient to improve your health. Talk to us before you begin a new exercise program, if you have heart disease or experience shortness of breath or chest pain. REDUCE STRESS Chronic emotional and physical stress leads to disease. Ways of reducing stress include meditation, visualization, prayer, yoga and other forms of relaxation therapy. Consistency is the [place]. Find a technique that works for you and do it every day. CULTIVATE RELATIONSHIPS Loneliness and isolation have a major negative impact on health. Seek out others who can love, care for and nurture you. Avoid hurtful relationships. MAINTAIN IDEAL BODY WEIGHT The best way to do this is to do all the things above. Our bodies naturally find the right weight if we keep moving and feed ourselves the right food. If your BMI is greater than 25, we strongly recommend a referral to a weight management program. Please speak to us or your family physician about available programs. AVOID NICOTINE IN ALL FORMS This includes all tobacco products, whether chewed, smoked, vaped, or rubbed on the skin. Smoking cessation programs, which can make use of tobacco substitutes, medications to suppress cravings and behavior management, are available. Please contact your family physician about programs in your area. Corey Mckeon MD 01/06/2018 1:56 PM Signed Addended by: COREY MCKEON MD on: 01/06/2018 01:56 PM Modules accepted: Orders Referring Provider: COREY MCKEON [[id number]] Allergies As of Date: 01/06/2018 (No Known Allergies) Date Reviewed: 01/06/2018 Reviewed by: Megan Canales - Fully Assessed Reason for Visit: Recheck [92] Primary Visit Diagnosis:ASHD (arteriosclerotic heart disease) [I25.10] Other Visit Diagnosis:Chronic systolic CHF (congestive heart failure) (HCC) [I50.22] Order(s):spironolactone (ALDACTONE) 25 mg tabletTake 1 tablet by mouth twice daily.Disp: Rfl: BASIC METABOLIC PNL [SQBMP] Order #: [id number] FUTURE Prescriptions as of 01/06/2018 Sig: SPIRONOLACTONE 25 MG TABLET Take 1 tablet by mouth twice * METOPROLOL TARTRATE 25 MG TAB* Take 0.5 tablets by mouth twi* VITAMIN C ORAL Take 1 tablet by mouth twice * WARFARIN 1 MG TABLET TAKE ONE TABLET BY MOUTH ONCE* ACETAMINOPHEN 500 MG TABLET Take 1,000 mg by mouth every * ASPIRIN 81 MG TABLET,DELAYED * Take 81 mg by mouth every jean* WARFARIN 1 MG TABLET Take 1 mg by mouth daily as d* WARFARIN 3 MG TABLET Take 3 mg by mouth daily as d* LISINOPRIL 2.5 MG TABLET Take 2.5 mg by mouth every ev* OMEPRAZOLE 20 MG CAPSULE,LUIS MIGUEL* Take 20 mg by mouth once oliver* DOCUSATE SODIUM 100 MG CAPSULE Take 100 mg by mouth once yuly* MULTIVITAMIN-IRON 9 MG-FOLIC * Take 1 tablet by mouth once d* ERGOCALCIFEROL (VITAMIN D2) 5* Take 1 capsule by mouth once * LEVOTHYROXINE 100 MCG TABLET Take 1 tablet by mouth once d* GABAPENTIN 300 MG CAPSULE Take 1 capsule by mouth twice* FUROSEMIDE 40 MG TABLET Take 1 tablet by mouth twice * METOLAZONE 2.5 MG TABLET Take 1 tablet by mouth once d* SILVER SULFADIAZINE 1 % TOPIC* Apply to leg wounds as direct* ZINC SULFATE 220 MG TABLET Take 1 tablet by mouth once d* Patient not taking: Reported on 12/19/2017 COMPOUNDED PRESCRIPTION Calcium Alginate 4x4 Dressing* Medication notes this encounter METOLAZONE 2.5 MG TABLET >> Megan Canales LPN 01/06/2018 1:36 PM >> MEGAN CANALES LPN TueJan 06, 2018 1:36 PM Unsure if taking Problem List As Of Date 01/06/2018 Noted Resolved Gastroesophageal reflux disease without esophag*INVALID FOR* Chronic atrial fibrillation (HCC) [I48.2] INVALID FOR* Priority: B More... Pure hypercholesterolemia [E78.00] Hypertension [I10] Priority: D More... Acquired hypothyroidism [E03.9] Priority: F More... CAD (coronary artery disease) [I25.10] More... Depressive disorder [F32.9] INVALID FOR*07/18/2017 Primary osteoarthritis involving multiple joint*INVALID FOR* Lymphedema of both lower extremities [I89.0] INVALID FOR* Priority: C More... Mouth dryness [R68.2] INVALID FOR* Muscular weakness [M62.81] INVALID FOR* Dorsalgia [M54.9] INVALID FOR* Stented coronary artery [Z95.5] INVALID FOR* Priority: A Gastric bypass status for obesity [Z98.84] INVALID FOR* Priority: C Bilateral leg ulcer (HCC) [L97.919, L97.929] INVALID FOR* Priority: E More... Polyneuropathy (HCC) [G62.9] INVALID FOR* Cecal ulcer [K63.3] INVALID FOR* Acute respiratory failure with hypoxia (HCC) [J*INVALID FOR*10/10/2017 Priority: Severe Anticoagulation goal of INR 2 to 3 [Z51.81, Z79*INVALID FOR* Priority: Mild More... ANASARCA/HYPOXIA 09/30/17 ADMISSION SUMMARY [Z9*INVALID FOR* Priority: Very Severe More... Skin bulla [R23.8] INVALID FOR* Priority: Mild More... Respiratory failure with hypoxia (HCC) [J96.91] INVALID FOR* Priority: Severe Heart failure with preserved ejection fraction *INVALID FOR* Priority: A More... Physical debility [R53.81] INVALID FOR* Priority: Moderate More... Requires continuous at home supplemental oxygen*INVALID FOR* More... Acute exacerbation of CHF (congestive heart mag*INVALID FOR* Other instructions from your clinician: Increase aldactone to twice a day. Weight every morning and call us next week with results Take BP daily and report next week LIFESTYLE CHANGE A healthy lifestyle is the most important component of your overall treatment plan. Please give serious thought to the following areas and commit to making oil heaterman changes. EAT A WHOLE FOOD, PLANT BASED DIET The nutrition your body gets is more important than the medicine you take. What matters most is the overall way you eat. We encourage you to minimize the use of animal products (which include dairy and all meats except fatty fish) and use whole, unprocessed plant foods to provide your protein, vitamins and other nutrients. We have a lot of information to share with you on this topic. We also hold Shared Medical Appointments, where you can come visit with Dr. Mckeon in the company of other patients and spend over an hour talking about the challenges of changing the way you eat. This is not a diet. It is a way of life that you will keep with you. EXERCISE REGULARLY It is not important to spend hours in the gym, lifting weights and perspiring heavily. A total of 2-3 hours per week of aerobic (causing you to be moderately short of breath) exercise is sufficient to improve your health. Talk to us before you begin a new exercise program, if you have heart disease or experience shortness of breath or chest pain. REDUCE STRESS Chronic emotional and physical stress leads to disease. Ways of reducing stress include meditation, visualization, prayer, yoga and other forms of relaxation therapy. Consistency is the [place]. Find a technique that works for you and do it every day. CULTIVATE RELATIONSHIPS Loneliness and isolation have a major negative impact on health. Seek out others who can love, care for and nurture you. Avoid hurtful relationships. MAINTAIN IDEAL BODY WEIGHT The best way to do this is to do all the things above. Our bodies naturally find the right weight if we keep moving and feed ourselves the right food. If your BMI is greater than 25, we strongly recommend a referral to a weight management program. Please speak to us or your family physician about available programs. AVOID NICOTINE IN ALL FORMS This includes all tobacco products, whether chewed, smoked, vaped, or rubbed on the skin. Smoking cessation programs, which can make use of tobacco substitutes, medications to suppress cravings and behavior management, are available. Please contact your family physician about programs in your area. Prescriptions ordered this encounter Disp Refills Start End SPIRONOLACTONE 25 MG TABLET 01/06/2018 Class: Med Update Route: ORAL Sig: Take 1 tablet by mouth twice daily. Medications Discontinued During This Encounter spironolactone (ALDACTONE) 25 mg tab* 01/06/2018 Class: Historical Med Route: ORAL Sig: Take 25 mg by mouth every evening. Disc: Reason for discontinue is not on file. Encounter Status:Closed by COREY MCKEON MD on 01/06/18 PROGRESS Observed: 12/30/2017 Status: COMPLETED Source: [facility] 1:45 PM CLINIC OTHER CAMPUS REPOSITORY O ID: [id number] Author: Luis Lyles (Loi) LOI Simons Service: (none) Author Type: Nurse Practitioner Type: Progress Notes Filed: 01/03/2018 11:03 AM Note Text: DATE OF VISIT: 12/30/2017 REASON FOR VISIT: Non-healing lower extremity wound. HISTORY OF PRESENT ILLNESS: Rosa Beltran is a 81 year old female who presents to the [facility] for further evaluation and management of a non-healing leg wound. She has a past medical history significant for atrial fibrillation on Coumadin, coronary artery disease,?COPD, hypertension, dyslipidemia and CHF.?Patient has felt mildly short of breath over the past month. ?Increase with exertion and lying flat. She is on 40 mg of Lasix twice a day. She still is urinating appropriately. She has not had any chest pain or palpitations. ?Fever, chills, or sweats. ?No productive cough. ?No wheezing. Upon taking patients vitals, her SPO2 level was from 76% - 85%. Patient stated she had shortness of breath. She was unable to finish her sentences without catching her breath. The tips of her fingers were cyanotic. Patient was sent to the ER for further evaluation. Tiffanie BARBOSA wheeled patient to the ER. INTERVAL HISTORY: Patient was sent tot he ED during her previous visit due to low oxygenation. She is now on 2 L of oxygen at all times. She denies any breathing difficulty at this time. She is an 81 year old white female with a long-standing history of swelling in her lower extremities secondary to lymphedema. Approximately 2 years ago, she sustained a fracture to her right ankle, requiring surgical intervention. The operative site became infected, and required prolonged treatment and eventually a skin graft for complete wound closure. As a result, the patient's ambulatory capacity has been impaired. Furthermore, she is morbidly obese which limits her ambulation. The patient leads a relatively sedentary lifestyle and requires a walker for ambulation. She spends a great part of her day in a sitting position. She sleeps with the head of the bed elevated. Swelling in her lower extremities has been on-going for many years. The patient has undergone a battery of diagnostic tests. A non-invasive lower extremity arterial study in December 2016 reveals normal- ankle brachial indices, bilaterally. Venous doppler examination on 01/14 reveals incompetence of the great saphenous veins, bilaterally. There is also incompetence of the small saphenous veins, bilaterally and the right accessory saphenous vein. At present, she has three wounds, 2 on the right distal leg and the other is on the left posterior calf. The left leg wound has been present for over a year and was managed with silver alginate, NPWT, Santyl, serial sharp wound debridements, compression therapy using Surepress and compression pumps. Patient's wound cultures over the past several months have grown out Enterobacter cloacae, MRSA, coag-staph aureus, and in January grew out Pseudomonas, managed with oral antibiotics. IIn July of this year, she developed a new wound on the right lateral distal leg, then in July, she experience cellulitis of both legs requiring hospitalization. In the last year, she has been followed by Dr. Jaskaran Chance at the [facility] [place] [facility]. It was felt that her home support system was inadequate and that she may not have the resources in her home environment to appropriately care for her needs. In this regard, a geriatric social work professor consultation had been recommended on several occassions, but patient apparently insisted on remaining in her home environment despite that there was thought that is may be less than optimal. The patient is here at the [facility] for a second opinion regarding management of the abovementioned bilateral lower extremity wounds. She offers no other complaints. She denies any fevers, chills, wound-related pain or other related symptoms. 12/30/17 Patient presents for follow-up. Overall, her lower extremity wounds are progressing favorably. One of the three is now healed. The remaining two show evidence of wound contraction and granulation tissue formation. To date, wounds have been managed with sharp debridement, collagen/anti-microbial dressing, compression therapy and nutritional support. She offers no new complaints. The edema in her lower extremities is well-controlled. She denies any fever, chills or other related symptoms. PAST MEDICAL HISTORY Diagnosis Date - Acquired hypothyroidism - Acute respiratory failure with hypoxia ([facility]) 09/30/2017 - Atrial fibrillation ([facility]) - CAD (coronary artery disease) Dr. Brenda Awan Hts, Promus element KIMMY LAD 11/20/2012, Stress test 04/2014 inferoapical reversible ischemia,small LVEF 48- 50%, LHC 12/2014 L main-normal, LAD widely patent, Cx diffuse mild luminal irregularities with 80%focal stenosis distal, RCA dominant with minimal luminal irregularities. 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 - Pure hypercholesterolemia - Rheumatoid arthritis ([facility]) 2007 - Sleep apnea - Stented coronary artery 12/29/2016 PAST SURGICAL HISTORY Procedure Laterality Date - CC CORONARY STENT 11/20/2012 KIMMY LAD - CC CORONARY STENT 12/20/2014 KIMMY, Cfx - SECTION HX - COLONOSCOPY 06/10/2017 [facility], Nonspecific cecal ulcer - GASTRIC BYPASS HX 1987 - HERNIA REPAIR HX 1988; 1990 - PAST SURGICAL HISTORY OF Right 09/2015 right tibia fracture ORIF - PAST SURGICAL HISTORY OF Right 01/20/2016 Removal of hardware, right tibia - TOTAL KNEE REPLACEMENT Right 2003 [facility]. - TOTAL KNEE REPLACEMENT Left 2004 [facility]. MEDICATIONS ergocalciferol, vitamin D2, (DRISDOL) 50,000 unit capsule Take 1 capsule by mouth once each week. levothyroxine (LEVOXYL) 100 mcg tablet Take 1 tablet by mouth once daily. Take on empty stomach. For Thyroid. gabapentin (NEURONTIN) 300 mg capsule Take 1 capsule by mouth twice daily. metoprolol tartrate, short acting, (LOPRESSOR) 50 mg tablet TAKE ONE TABLET BY MOUTH TWICE DAILY furosemide (LASIX) 40 mg tablet Take 1 tablet by mouth twice daily. COMPOUNDED PRESCRIPTION Calcium Alginate 4x4 Dressing, change daily Dx: Blister left leg with infection S80.822A, L08.9; Lymphedema I89.0. Wound dimensions: 4 x 3 cm acetaminophen (TYLENOL) 500 mg tablet Take 1,000 mg by mouth every 8 hours as needed. aspirin, enteric coated (ASPIRIN, ENTERIC COATED) 81 mg EC tablet Take 81 mg by mouth once daily. warfarin (COUMADIN) 1 mg tablet Take 1 mg by mouth daily as directed. Take 1 tablet (1mg) by mouth once daily. Take with 1 x 3mg tablet to total 4mg by mouth once daily. warfarin (COUMADIN) 3 mg tablet Take 3 mg by mouth daily as directed. Take 1 tablet (3mg) by mouth once daily. Take with 1 x 1mg tablet to total 4mg by mouth once daily. lisinopril (ZESTRIL) 2.5 mg tablet Take 2.5 mg by mouth once daily. omeprazole (PRILOSEC) 20 mg capsule Take 20 mg by mouth once daily. spironolactone (ALDACTONE) 25 mg tablet Take 25 mg by mouth once daily. docusate sodium (COLACE) 100 mg capsule Take 100 mg by mouth once daily as needed. therapeutic multivitamin w/ iron (THERAGRAN-M) 9 mg iron-400 mcg tablet Take 1 tablet by mouth once daily. ALLERGIES No Known Allergies FAMILY HISTORY: Patient's father in his 70s with a history of arthritis. Her mother at the age of 90 with a history of arthritis. SOCIAL HISTORY Patient is a , lives alone, but has a son nearby. She has 6 children. Substance Use Topics - Smoking status: Passive Smoke Exposure - Never Smoker - Smokeless tobacco: Never Used Comment: smoked for 40 years - Alcohol use No REVIEW OF SYSTEM: PAIN ASSESSMENT: Negative for pain, history of chronic pain, or current treatment for a chronic pain condition. GENERAL: No weight loss, malaise or fevers HEENT: Negative for frequent or significant headaches, No changes in hearing or vision, no nose bleeds or other nasal problems NECK: Negative for lumps, goiter, pain and significant neck swelling RESPIRATORY: Negative for cough, hemoptysis, wheezing, positive for shortness of breath CARDIOVASCULAR: Negative for chest pain,palpitations; has chronic leg swelling GI: No nausea, vomiting, or diarrhea : No history of dysuria, frequency or incontinence MUSCULOSKELETAL: Negative for joint pain or swelling, back pain or muscle pain SKIN: As per HPI. Negative for any other lesions, rash, and itching PSYCH: Negative for sleep disturbance, mood disorder and recent psychosocial stressors HEMATOLOGY/LYMPHOLOGY: Negative for prolonged bleeding, bruising easily or swollen nodes ENDOCRINE: Negative for cold or heat intolerance, polyuria, polydipsia and goiter NEURO: No history of headaches, syncope, paralysis, seizures or tremors 12/19/17 1000 BP: 135/69 Pulse: 60 Resp: 16 Temp: 36.5 ?C (97.8 ?F) TempSrc: Oral SpO2: 94% Weight: 88.1 kg (194 lb 4.8 oz) PHYSICAL EXAMINATION: HEENT: PERRLA , sclera non-icteric, EOM intact, mucous membrane moist, pink and w/o lesions Comments: Neck: Supple, no bruit, no masses, trachea midline Comments: Chest: Lungs clear to auscultation, no accessory muscle use for respiration Comments: Heart: Regular rate/rhythm, normal S1,S2, no murmur, rubs or gallops Comments: Abdomen: Soft, non-tender, non-distended, + bowel sounds, no bruit, no organomegaly Comments: Extremity: Dorsalis pedis : Present (Y) Absent Diminished Doppler Posterior Tibialis: Present (Y) Absent Diminished Doppler Capillary Refill: < 3 sec. (Y) > 3 sec. 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 10/14/17 WBC 8.4, Hgb 12.2, Hct 38.5, PLT 211, Glu 91, BUN 24, Cr 0.88, Na 136, K 4.7, Cl 100, Albumin 3.6, Total protein 9.1 11/04/17 Venous Doppler Study Bilateral Lower Extremities IMPRESSION RIGHT SIDE - DEEP VEINS Negative for acute deep vein thrombosis in vessels visualized. Positive for valvular incompetency in the common femoral vein and femoral vein. Lymph node noted, within the groin, measuring 2.75 x 2.71 x .809cm. Cystic structure noted, within the popliteal fossa, measuring 2.17 x 2.67 x 1.49cm. ? RIGHT SIDE - SUPERFICIAL VEINS Positive for valvular incompetency in the great saphenous vein. REFLUX ONLY NOTED AT PROXIMAL THIGH. Vessel becomes tortuous branching from proximal to distal calf. The anterior lateral branch is negative for incompetency. Positive for valvular incompetency in the small saphenous vein. REFLUX ONLY NOTED AT DISTAL CALF. LEFT SIDE - DEEP VEINS Negative for acute deep vein thrombosis in vessels visualized. Positive for valvular incompetency in the femoral vein at the mid thigh. LEFT SIDE - SUPERFICIAL VEINS Positive for valvular incompetency in the great saphenous vein. REFLUX ONLY NOTED AT MID CALF. Negative for valvular incompetency in the small saphenous vein. No previous scans for comparison; however, chronic appearing superficial thrombophlebitis in the great saphenous vein at the distal calf. ? Technologist: Cleo Magdaleno RVT Ordering physician: Luis Simons ? Interpreting physician: Vishal Torres MD, RVT ? 3/27/17 Segmental arterial doppler study bilateral lower extremities Findings: NIMISHA 1.04 to the right and 1.0 to the left. Based upon the findings of this resting non-invasive lower extremity arterial study, arterial perfusion to ankle level appears to be relatively normal bilaterally. Triphasic and biphasic waveforms were noted at ankle level bilaterally. Resting ankle-brachial indices were bilaterally normal. ? 08/01/17 X-Ray 3-View Right Ankle Impression: There is prior open reduction internal fixation of the fibula which appears to be relatively intact allowing for advanced bony osteopenia. There is an irregular appearance of the lateral side distal tibia which is compatible with a prior fracture for which a new fracture on the lateral side is not excluded. The fracture could be potentially be associated with new trauma or potentially infection. Recommend consideration for follow-up study such as MRI or potentially three-phase bone scan. ? Flattened appearance of the arch of the foot with degenerative change of the tarsotarsal joints. ? Diffuse soft tissue swelling. ? Electronically Signed: Kelly Camarena MD at 20:15 EDT Tel , Service support , ? 10/14/17 XR 2 View Tib/Fib (Left) Findings: Left tibia-fibula: Tibial component of the joint prosthesis noted without associated abnormal lucency. No acute fracture or bony destruction. Right tibia and fibula: Plate and screw fixation remote distal fibular fracture. There is also remote tibial fracture with residual posterior angulation. Ghost tracks from previous tibial hardware. Tibial component of the joint prosthesis noted without associated abnormal lucency. No acute fracture or bony destruction. ? Stereotype Finisher: DWIGHT ? Transcribe Date/Time: Oct 14 2017 ?4:02P Dictated by : ZURDO SANTOS MD ? 10/14/17 XR 2 View Tib/Fib (Right) Findings: Left tibia-fibula: Tibial component of the joint prosthesis noted without associated abnormal lucency. No acute fracture or bony destruction. Right tibia and fibula: Plate and screw fixation remote distal fibular fracture. There is also remote tibial fracture with residual posterior angulation. Ghost tracks from previous tibial hardware. Tibial component of the joint prosthesis noted without associated abnormal lucency. No acute fracture or bony destruction. ? Stereotype Finisher: DWIGHT ? Transcribe Date/Time: Dec 15 2017 ?4:02P Dictated by : ZURDO SANTOS MD ? 10/14/17 XR 2 View Tib/Fib (Left) Findings: Left tibia-fibula: Tibial component of the joint prosthesis noted without associated abnormal lucency. No acute fracture or bony destruction. Right tibia and fibula: Plate and screw fixation remote distal fibular fracture. There is also remote tibial fracture with residual posterior angulation. Ghost tracks from previous tibial hardware. Tibial component of the joint prosthesis noted without associated abnormal lucency. No acute fracture or bony destruction. WOUND ASSESSMENT: Wound Number: 1 First Assessed Date: 10/14/17 Pre-existing: YES Location: Leg Orientation: Right, Lateral and Distal Wound Etiology: Venous Depth of Tissue Injury (Non-pressure): Full Thickness Diabetic Wounds:N/A Pressure Injury: N/A Pre-Measurements Initial (First Visit): 3.5 cm length x 4.0 cm width x 0.5 cm depth Post Measurement (Current): 3.0 cm length x 4.0 cm width x 0.4 cm depth % Healing Rate/#Weeks: 36.5 % -- Week 7 Wound Bed (Post-debridement): 100% red % of Healthy tissue: Undermining: No Tunneling: No Tendon/bone exposed: NO Wound Edge/Margins: Irregular wound edges and Edge attached to base Periwound Tissue: Mild erythema, Wet (macerated), and Edema Exudate Amount:Moderate Consistency:Serous Odor:Minimal Infection/Critical Colonization Localized s/s: Non-healing and Increased exudate Systemic s/s: None Local/systemic Rx: None Wound Healing Status: Chronic Clinically presenting as: Stalled wound healing Current topical treatment: Iodoflex Wound Number: 2 First Assessed Date: 10/14/17 Pre-existing: YES Location: Leg Orientation: Right, Medial and Distal Wound Etiology: Surgical Depth of Tissue Injury (Non-pressure): Partial Thickness Diabetic Wounds:N/A Pressure Injury: N/A Pre-Measurements Initial (First Visit): 0.5 cm length x 0.4 cm width x 0.1 cm depth Post Measurement (Current): Epithelialized % Healing Rate/#Weeks: Week 1 -- Healed Wound Bed (Post-debridement): % of Healthy tissue: Undermining: No Tunneling: No Tendon/bone exposed: NO Wound Edge/Margins: Normal, intact, Irregular wound edges and Edge attached to base Periwound Tissue: Normal, intact,uninvolved tissue and Dry,flaky Exudate Amount: None Consistency: None Odor:None Infection/Critical Colonization Localized s/s: None and Edema Systemic s/s: None Local/systemic Rx: None Wound Healing Status: Chronic Clinically presenting as: Healed Current topical treatment: Iodoflex Wound Number: 3 First Assessed Date: 10/14/17 Pre-existing: YES Location: Leg (calf) Orientation: Left and Posterior Wound Etiology: Venous Depth of Tissue Injury (Non-pressure): Full Thickness Diabetic Wounds:N/A Pressure Injury: N/A Pre-Measurements Initial (First Visit): 1.3 cm length x 1.2 cm width x 0.1 cm depth Post Measurement (Current): Epithelialized % Healing Rate/#Weeks: 100 % -- Week 5 Wound Bed (Post-debridement): 100% [employer] % of Healthy tissue: Undermining: No Tunneling: No Tendon/bone exposed: NO Wound Edge/Margins: Well-defined wound edges and Edge attached to base Periwound Tissue: [employer], dry and intact, No fluctuance, induration or advancing soft tissue necrosis or ischemia Exudate: Nonr Consistency: None Odor:None Infection/Critical Colonization: N/A Localized s/s: None Systemic s/s: None Local/systemic Rx: None Wound Healing Status: Chronic Clinically presenting as: Healed Current topical treatment: Collagen IMPRESSION: 1. Non-healing right and left lower extremity wounds ( #1 and #3) in the setting of chronic venous insufficiency with secondary lymphedema. 2. Recurrent right medial leg wound s/p STSG in the setting of chronic edema. 3. Significant lower extremity edema secondary to underlying chronic venous insufficiency with secondary lymphedema. 4. Multiple risk factors or co-morbidities that may contribute to wound healing difficulties include hypothyroid disease, chronic atrial fibrillation on anticoagulation, coronary artery disease, COPD, dyslipidemia, hypertension, muscle weakness, osteoarthritis, GERD, depression and obesity. 5. Wound cultures positive for Enterobacter cloacae and Staph aureus most likely increased colonization. 6. Very good glucose control based on recent HgbA1c. 7. Zinc insufficiency ( precursor for collagen synthesis. 8. No significant arterial disease based on recent PVRs. 9. No evidence of osteomyelitis based on recent XRs. 10. Valvular incompetency involving the right common femoral vein , right femoral vein, right great saphenous vein, left femoral vein (mid thigh) and left great saphenous vein (mid thigh). TREATMENT PLAN: Debridement Type: Autolytic Enzymatic Mechanical Surgical Sharp (Y) Other: ?? Sharp debridement is performed to freshen up the wound and stimulate the healing cascade. It allows the wound to progress from the inflammatory to the proliferative phase of wound healing. Wound Dressing: See Nursing Notes for details. . Topical Rx: Right lateral distal leg: Wound flushed with 10 cc of saline solution. Pat dry. Collagen powder applied to the wound bed. Covered with adaptic touch secured with 2 silicone tape. a layer of dry max was applied on top of the adaptic touch. Unna Boot Application: zinc paste wrap applied to both lower extremities followed by a layer of kerlix, cast padding, 4 coban and topped with a piece of stockinet from behind the toes to 1 below the knee. Toes are warm and pink before and and post application with a + dorsal pedis pulse on palpation. It was demonstrated to the patient how to check for adequate circulation. If the patient exhibits a change in color to the extremity, change in temperature, increased pain, or the boot becomes wet or too tight, the patient was instructed to remove the boot or go to the Emergency Department. Patient voices understanding with intent to comply. CirAids to be ordered for maintenance therapy. Use pneumatic compression pumps twice daily with 40-50 mmhg compression Systemic Rx: Doxycycline 100 mg by mouth twice daily x 14 days and zinc 220 mg by mouth daily x 14 days (Completed.) Nutritional Support: MVI, Zinc Supplement and Protein Supplement Patient is instructed to continue a healthy, well-balanced diet for nutritional support for optimal healing. Protein is the most important nutrient for wound healing. Eating adequate amounts of protein allows the body to create new cells and chemicals to heal the wound, and increases the body?s ability to fight infection. Eating high protein foods daily is recommended such as: lean meats, fish, poultry, cheese, milk, yogurt, eggs and legumes. Vitamins and minerals provide a full range of nutrients for wound healing. It can help jump start the body's production of cells and chemicals needed for healing. Vitamins and minerals can be obtained through healthy foods in your diet and by taking a multiple vitamin supplement. Vitamin C is essential for collagen synthesis. Collagen and fibroblasts compose the basis for the structure of a new wound bed. Also, a deficiency of Vitamin C prolongs the healing time and contributes to reduced resistance to infection. Laboratory: We will obtain wound cultures to determine bacterial load. Results positive for few Enterobacter cloacae complex and many Staph aureus. No anaerobic organisms or fungal elements. Wound cultures are collected to assess level of bacterial bio-burden. Excessive bio-burden can result in inflammatory and proliferative phase stagnation as well as compromise of normal wound healing physiology. Bacterial proliferation, biofilm production, critical colonization and the development of resistant organism can lead to wound infection, wound deterioration and devastating tissue loss. Knowing the organism that populated the wound can help direct therapy, particularly anti-microbial dressing choices. Vascular Evaluation: PVRs for both lower extremities to evaluate for arterial insufficiency to see if poor circulation is an issue regarding her slow healing. Based on vascular studies, patient to see Dr. Lili Mcnair for further evaluation and management of venous disease (valvular incompetency). Follow-up is scheduled in 1 week, sooner with any concerns or worsening symptoms. Luis Simons CNP Charge Capture: [id number] PROCEDURE Observed: 12/30/2017 Status: COMPLETED Source: [facility] 1:45 PM [facility] HNO ID: [id number] Author: Luis Lyles (Loi) LOI Simons Service: (none) Author Type: Nurse Practitioner Type: Procedures Filed: 01/03/2018 11:03 AM Note Text: A procedural pause was conducted immediately prior to starting the wound debridement to verify correct patient identity using two patient identifiers: the correct site and correct procedure. Permission from the patient to perform the procedure was obtained. After providing local analgesia with Lidocaine 2% gel, a full-thickness excisional debridement of the right lower leg wound was performed and carried through the skin and subcutaneous tissue, using a sterile #15 blade, iris scissors, and forceps to remove the non-viable or devitalized tissue. The debridement extended into the viable wound margin/s to promote a healthy, active wound edge to support healing. The patient tolerated the procedure well without complications. Hemostasis was achieved with direct pressure. The wound/s was/were then copiously irrigated with sterile normal saline and dressings were applied. CNOV Observed: 12/30/2017 Status: COMPLETED Source: [facility] 1:45 PM [facility] REPOSITORY Office Visit ([facility]) ROSA BELTRAN ([id number]) 1935 F Date Time Provider Department 12/30/17 1:45 PM LUIS SIMONS (LOI) [facility]MR During your visit today, we recorded the following information about you: Temperature Pulse Respiration Blood pressure 98.1 degrees 59/minute 15/minute 143/78 Luis Simons CNP, LOI 01/10/2018 2:27 PM Incomplete Revision DATE OF VISIT: 12/30/2017 REASON FOR VISIT: Non-healing lower extremity wound. HISTORY OF PRESENT ILLNESS: Rosa Beltran is a 81 year old female who presents to the [facility] for further evaluation and management of a non-healing leg wound. She has a past medical history significant for atrial fibrillation on Coumadin, coronary artery disease,?COPD, hypertension, dyslipidemia and CHF.?Patient has felt mildly short of breath over the past month. ?Increase with exertion and lying flat. She is on 40 mg of Lasix twice a day. She still is urinating appropriately. She has not had any chest pain or palpitations. ?Fever, chills, or sweats. ?No productive cough. ?No wheezing. Upon taking patients vitals, her SPO2 level was from 76% - 85%. Patient stated she had shortness of breath. She was unable to finish her sentences without catching her breath. The tips of her fingers were cyanotic. Patient was sent to the ER for further evaluation. Tiffanie BARBOSA wheeled patient to the ER. INTERVAL HISTORY: Patient was sent tot he ED during her previous visit due to low oxygenation. She is now on 2 L of oxygen at all times. She denies any breathing difficulty at this time. She is an 81 year old white female with a long-standing history of swelling in her lower extremities secondary to lymphedema. Approximately 2 years ago, she sustained a fracture to her right ankle, requiring surgical intervention. The operative site became infected, and required prolonged treatment and eventually a skin graft for complete wound closure. As a result, the patient's ambulatory capacity has been impaired. Furthermore, she is morbidly obese which limits her ambulation. The patient leads a relatively sedentary lifestyle and requires a walker for ambulation. She spends a great part of her day in a sitting position. She sleeps with the head of the bed elevated. Swelling in her lower extremities has been on-going for many years. The patient has undergone a battery of diagnostic tests. A non-invasive lower extremity arterial study in December 2016 reveals normal-ankle brachial indices, bilaterally. Venous doppler examination on 01/14 reveals incompetence of the great saphenous veins, bilaterally. There is also incompetence of the small saphenous veins, bilaterally and the right accessory saphenous vein. At present, she has three wounds, 2 on the right distal leg and the other is on the left posterior calf. The left leg wound has been present for over a year and was managed with silver alginate, NPWT, Santyl, serial sharp wound debridements, compression therapy using Surepress and compression pumps. Patient's wound cultures over the past several months have grown out Enterobacter cloacae, MRSA, coag-staph aureus, and in January grew out Pseudomonas, managed with oral antibiotics. IIn July of this year, she developed a new wound on the right lateral distal leg, then in July, she experience cellulitis of both legs requiring hospitalization. In the last year, she has been followed by Dr. Jaskaran Chance at the [facility]. It was felt that her home support system was inadequate and that she may not have the resources in her home environment to appropriately care for her needs. In this regard, a geriatric social work professor consultation had been recommended on several occassions, but patient apparently insisted on remaining in her home environment despite that there was thought that is may be less than optimal. The patient is here at the [facility] for a second opinion regarding management of the abovementioned bilateral lower extremity wounds. She offers no other complaints. She denies any fevers, chills, wound-related pain or other related symptoms. 12/30/17 Patient presents for follow-up. Overall, her lower extremity wounds are progressing favorably. One of the three is now healed. The remaining two show evidence of wound contraction and granulation tissue formation. To date, wounds have been managed with sharp debridement, collagen/anti-microbial dressing, compression therapy and nutritional support. She offers no new complaints. The edema in her lower extremities is well-controlled. She denies any fever, chills or other related symptoms. PAST MEDICAL HISTORY Diagnosis Date - Acquired hypothyroidism - Acute respiratory failure with hypoxia (HCC) 09/30/2017 - Atrial fibrillation ([facility]) - CAD (coronary artery disease) Dr. Brenda Awan Hts, Promus element KIMMY LAD 11/20/2012, Stress test 04/2014 inferoapical reversible ischemia,small LVEF 48-50%, LHC 12/2014 L main-normal, LAD widely patent, Cx diffuse mild luminal irregularities with 80%focal stenosis distal, RCA dominant with minimal luminal irregularities. 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 - Pure hypercholesterolemia - Rheumatoid arthritis ([facility]) 2007 - Sleep apnea - Stented coronary artery 12/29/2016 PAST SURGICAL HISTORY Procedure Laterality Date - CC CORONARY STENT 11/20/2012 KIMMY LAD - CC CORONARY STENT 12/20/2014 KIMMY, Cfx - SECTION HX - COLONOSCOPY 06/10/2017 [facility], Nonspecific cecal ulcer - GASTRIC BYPASS HX 1986 - HERNIA REPAIR HX 1987; 1989 - PAST SURGICAL HISTORY OF Right 09/2015 right tibia fracture ORIF - PAST SURGICAL HISTORY OF Right 01/20/2016 Removal of hardware, right tibia - TOTAL KNEE REPLACEMENT Right 2003 [facility] Gen. - TOTAL KNEE REPLACEMENT Left 2004 [facility]. MEDICATIONS ergocalciferol, vitamin D2, (DRISDOL) 50,000 unit capsule Take 1 capsule by mouth once each week. levothyroxine (LEVOXYL) 100 mcg tablet Take 1 tablet by mouth once daily. Take on empty stomach. For Thyroid. gabapentin (NEURONTIN) 300 mg capsule Take 1 capsule by mouth twice daily. metoprolol tartrate, short acting, (LOPRESSOR) 50 mg tablet TAKE ONE TABLET BY MOUTH TWICE DAILY furosemide (LASIX) 40 mg tablet Take 1 tablet by mouth twice daily. COMPOUNDED PRESCRIPTION Calcium Alginate 4x4 Dressing, change daily Dx: Blister left leg with infection S80.822A, L08.9; Lymphedema I89.0. Wound dimensions: 4 x 3 cm acetaminophen (TYLENOL) 500 mg tablet Take 1,000 mg by mouth every 8 hours as needed. aspirin, enteric coated (ASPIRIN, ENTERIC COATED) 81 mg EC tablet Take 81 mg by mouth once daily. warfarin (COUMADIN) 1 mg tablet Take 1 mg by mouth daily as directed. Take 1 tablet (1mg) by mouth once daily. Take with 1 x 3mg tablet to total 4mg by mouth once daily. warfarin (COUMADIN) 3 mg tablet Take 3 mg by mouth daily as directed. Take 1 tablet (3mg) by mouth once daily. Take with 1 x 1mg tablet to total 4mg by mouth once daily. lisinopril (ZESTRIL) 2.5 mg tablet Take 2.5 mg by mouth once daily. omeprazole (PRILOSEC) 20 mg capsule Take 20 mg by mouth once daily. spironolactone (ALDACTONE) 25 mg tablet Take 25 mg by mouth once daily. docusate sodium (COLACE) 100 mg capsule Take 100 mg by mouth once daily as needed. therapeutic multivitamin w/ iron (THERAGRAN-M) 9 mg iron-400 mcg tablet Take 1 tablet by mouth once daily. ALLERGIES No Known Allergies FAMILY HISTORY: Patient's father in his 70s with a history of arthritis. Her mother at the age of 90 with a history of arthritis. SOCIAL HISTORY Patient is a , lives alone, but has a son nearby. She has 6 children. Substance Use Topics - Smoking status: Passive Smoke Exposure - Never Smoker - Smokeless tobacco: Never Used Comment: smoked for 40 years - Alcohol use No REVIEW OF SYSTEM: PAIN ASSESSMENT: Negative for pain, history of chronic pain, or current treatment for a chronic pain condition. GENERAL: No weight loss, malaise or fevers HEENT: Negative for frequent or significant headaches, No changes in hearing or vision, no nose bleeds or other nasal problems NECK: Negative for lumps, goiter, pain and significant neck swelling RESPIRATORY: Negative for cough, hemoptysis, wheezing, positive for shortness of breath CARDIOVASCULAR: Negative for chest pain,palpitations; has chronic leg swelling GI: No nausea, vomiting, or diarrhea : No history of dysuria, frequency or incontinence MUSCULOSKELETAL: Negative for joint pain or swelling, back pain or muscle pain SKIN: As per HPI. Negative for any other lesions, rash, and itching PSYCH: Negative for sleep disturbance, mood disorder and recent psychosocial stressors HEMATOLOGY/LYMPHOLOGY: Negative for prolonged bleeding, bruising easily or swollen nodes ENDOCRINE: Negative for cold or heat intolerance, polyuria, polydipsia and goiter NEURO: No history of headaches, syncope, paralysis, seizures or tremors 12/30/17 1345 BP: 135/69 Pulse: 60 Resp: 16 Temp: 36.5 ?C (97.8 ?F) TempSrc: Oral SpO2: 94% Weight: 88.1 kg (194 lb 4.8 oz) PHYSICAL EXAMINATION: HEENT: PERRLA , sclera non-icteric, EOM intact, mucous membrane moist, pink and w/o lesions Comments: Neck: Supple, no bruit, no masses, trachea midline Comments: Chest: Lungs clear to auscultation, no accessory muscle use for respiration Comments: Heart: Regular rate/rhythm, normal S1,S2, no murmur, rubs or gallops Comments: Abdomen: Soft, non-tender, non-distended, + bowel sounds, no bruit, no organomegaly Comments: Extremity: Dorsalis pedis : Present (Y) Absent Diminished Doppler Posterior Tibialis: Present (Y) Absent Diminished Doppler Capillary Refill: ANDlt; 3 sec. (Y) ANDgt; 3 sec. ABIs: Right Left Rubor of Dependency: Negative (Y) Positive (N) [place] Examination: Comments: Measurements: Right Calf: 36.5 cm Right Ankle: 29 cm Left Calf: 37.5 cm Left Ankle: 24.2 cm Neuro: Alert ANDamp; oriented x3, AUTOMOTIVE SALES REPRESENTATIVE II-XII grossly intact, reflexes 2+ and symmetric, UE/LE 5/5 Comments: Skin: No rashes, no abnormal skin lesions Comments: See wound assessment Most recent diagnostic/laboratory data: 10/14/17 Hemoglobin A1C = 5.8 ?? 10/14/17 WBC 8.4, Hgb 12.2, Hct 38.5, PLT 211, Glu 91, BUN 24, Cr 0.88, Na 136, K 4.7, Cl 100, Albumin 3.6, Total protein 9.1 11/04/17 Venous Doppler Study Bilateral Lower Extremities IMPRESSION RIGHT SIDE - DEEP VEINS Negative for acute deep vein thrombosis in vessels visualized. Positive for valvular incompetency in the common femoral vein and femoral vein. Lymph node noted, within the groin, measuring 2.75 x 2.71 x .809cm. Cystic structure noted, within the popliteal fossa, measuring 2.17 x 2.67 x 1.49cm. ? RIGHT SIDE - SUPERFICIAL VEINS Positive for valvular incompetency in the great saphenous vein. REFLUX ONLY NOTED AT PROXIMAL THIGH. Vessel becomes tortuous branching from proximal to distal calf. The anterior lateral branch is negative for incompetency. Positive for valvular incompetency in the small saphenous vein. REFLUX ONLY NOTED AT DISTAL CALF. LEFT SIDE - DEEP VEINS Negative for acute deep vein thrombosis in vessels visualized. Positive for valvular incompetency in the femoral vein at the mid thigh. LEFT SIDE - SUPERFICIAL VEINS Positive for valvular incompetency in the great saphenous vein. REFLUX ONLY NOTED AT MID CALF. Negative for valvular incompetency in the small saphenous vein. No previous scans for comparison; however, chronic appearing superficial thrombophlebitis in the great saphenous vein at the distal calf. ? Technologist: Cleo Magdaleno RVT Ordering physician: Luis Simons ? Interpreting physician: Vishal Torres MD, RVT ? 01/24/17 Segmental arterial doppler study bilateral lower extremities Findings: NIMISHA 1.04 to the right and 1.0 to the left. Based upon the findings of this resting non-invasive lower extremity arterial study, arterial perfusion to ankle level appears to be relatively normal bilaterally. Triphasic and biphasic waveforms were noted at ankle level bilaterally. Resting ankle- brachial indices were bilaterally normal. ? 08/01/17 X-Ray 3-View Right Ankle Impression: There is prior open reduction internal fixation of the fibula which appears to be relatively intact allowing for advanced bony osteopenia. There is an irregular appearance of the lateral side distal tibia which is compatible with a prior fracture for which a new fracture on the lateral side is not excluded. The fracture could be potentially be associated with new trauma or potentially infection. Recommend consideration for follow- up study such as MRI or potentially three-phase bone scan. ? Flattened appearance of the arch of the foot with degenerative change of the tarsotarsal joints. ? Diffuse soft tissue swelling. ? Electronically Signed: Kelly Camarena MD at 20:15 EDT Tel , Service support , ? 10/14/17 XR 2 View Tib/Fib (Left) Findings: Left tibia-fibula: Tibial component of the joint prosthesis noted without associated abnormal lucency. No acute fracture or bony destruction. Right tibia and fibula: Plate and screw fixation remote distal fibular fracture. There is also remote tibial fracture with residual posterior angulation. Ghost tracks from previous tibial hardware. Tibial component of the joint prosthesis noted without associated abnormal lucency. No acute fracture or bony destruction. ? Stereotype Finisher: DWIGHT ? Transcribe Date/Time: Oct 14 2017 ?4:02P Dictated by : ZURDO SANTOS MD ? 10/14/17 XR 2 View Tib/Fib (Right) Findings: Left tibia-fibula: Tibial component of the joint prosthesis noted without associated abnormal lucency. No acute fracture or bony destruction. Right tibia and fibula: Plate and screw fixation remote distal fibular fracture. There is also remote tibial fracture with residual posterior angulation. Ghost tracks from previous tibial hardware. Tibial component of the joint prosthesis noted without associated abnormal lucency. No acute fracture or bony destruction. ? Stereotype Finisher: DWIGHT ? Transcribe Date/Time: Oct 14 2017 ?4:02P Dictated by : ZURDO SANTOS MD ? 10/14/17 XR 2 View Tib/Fib (Left) Findings: Left tibia-fibula: Tibial component of the joint prosthesis noted without associated abnormal lucency. No acute fracture or bony destruction. Right tibia and fibula: Plate and screw fixation remote distal fibular fracture. There is also remote tibial fracture with residual posterior angulation. Ghost tracks from previous tibial hardware. Tibial component of the joint prosthesis noted without associated abnormal lucency. No acute fracture or bony destruction. WOUND ASSESSMENT: Wound Number: 1 First Assessed Date: 10/14/17 Pre-existing: YES Location: Leg Orientation: Right, Lateral and Distal Wound Etiology: Venous Depth of Tissue Injury (Non-pressure): Full Thickness Diabetic Wounds:N/A Pressure Injury: N/A Pre-Measurements Initial (First Visit): 3.5 cm length x 4.0 cm width x 0.5 cm depth Post Measurement (Current): 3.0 cm length x 4.0 cm width x 0.4 cm depth % Healing Rate/#Weeks: 36.5 % -- Week 7 Wound Bed (Post-debridement): 100% red % of Healthy tissue: Undermining: No Tunneling: No Tendon/bone exposed: NO Wound Edge/Margins: Irregular wound edges and Edge attached to base Periwound Tissue: Mild erythema, Wet (macerated), and Edema Exudate Amount:Moderate Consistency:Serous Odor:Minimal Infection/Critical Colonization Localized s/s: Non-healing and Increased exudate Systemic s/s: None Local/systemic Rx: None Wound Healing Status: Chronic Clinically presenting as: Stalled wound healing Current topical treatment: Iodoflex Wound Number: 2 First Assessed Date: 10/14/17 Pre-existing: YES Location: Leg Orientation: Right, Medial and Distal Wound Etiology: Surgical Depth of Tissue Injury (Non-pressure): Partial Thickness Diabetic Wounds:N/A Pressure Injury: N/A Pre-Measurements Initial (First Visit): 0.5 cm length x 0.4 cm width x 0.1 cm depth Post Measurement (Current): Epithelialized % Healing Rate/#Weeks: Week 1 -- Healed Wound Bed (Post-debridement): % of Healthy tissue: Undermining: No Tunneling: No Tendon/bone exposed: NO Wound Edge/Margins: Normal, intact, Irregular wound edges and Edge attached to base Periwound Tissue: Normal, intact,uninvolved tissue and Dry,flaky Exudate Amount: None Consistency: None Odor:None Infection/Critical Colonization Localized s/s: None and Edema Systemic s/s: None Local/systemic Rx: None Wound Healing Status: Chronic Clinically presenting as: Healed Current topical treatment: Iodoflex Wound Number: 3 First Assessed Date: 10/14/17 Pre-existing: YES Location: Leg (calf) Orientation: Left and Posterior Wound Etiology: Venous Depth of Tissue Injury (Non-pressure): Full Thickness Diabetic Wounds:N/A Pressure Injury: N/A Pre-Measurements Initial (First Visit): 1.3 cm length x 1.2 cm width x 0.1 cm depth Post Measurement (Current): Epithelialized % Healing Rate/#Weeks: 100 % -- Week 5 Wound Bed (Post-debridement): 100% [employer] % of Healthy tissue: Undermining: No Tunneling: No Tendon/bone exposed: NO Wound Edge/Margins: Well-defined wound edges and Edge attached to base Periwound Tissue: [employer], dry and intact, No fluctuance, induration or advancing soft tissue necrosis or ischemia Exudate: Nonr Consistency: None Odor:None Infection/Critical Colonization: N/A Localized s/s: None Systemic s/s: None Local/systemic Rx: None Wound Healing Status: Chronic Clinically presenting as: Healed Current topical treatment: Collagen IMPRESSION: 1. Non-healing right and left lower extremity wounds ( #1 and #3) in the setting of chronic venous insufficiency with secondary lymphedema. 2. Recurrent right medial leg wound s/p STSG in the setting of chronic edema. 3. Significant lower extremity edema secondary to underlying chronic venous insufficiency with secondary lymphedema. 4. Multiple risk factors or co-morbidities that may contribute to wound healing difficulties include hypothyroid disease, chronic atrial fibrillation on anticoagulation, coronary artery disease, COPD, dyslipidemia, hypertension, muscle weakness, osteoarthritis, GERD, depression and obesity. 5. Wound cultures positive for Enterobacter cloacae and Staph aureus most likely increased colonization. 6. Very good glucose control based on recent HgbA1c. 7. Zinc insufficiency ( precursor for collagen synthesis. 8. No significant arterial disease based on recent PVRs. 9. No evidence of osteomyelitis based on recent XRs. 10. Valvular incompetency involving the right common femoral vein , right femoral vein, right great saphenous vein, left femoral vein (mid thigh) and left great saphenous vein (mid thigh). TREATMENT PLAN: Debridement Type: Autolytic Enzymatic Mechanical Surgical Sharp (Y) Other: ?? Sharp debridement is performed to ANDquot;freshen upANDquot; the wound and stimulate the healing cascade. It allows the wound to progress from the inflammatory to the proliferative phase of wound healing. Wound Dressing: See Nursing Notes for details. . Topical Rx: Right lateral distal leg: Wound flushed with 10 cc of saline solution. Pat dry. Collagen powder applied to the wound bed. Covered with adaptic touch secured with 2ANDquot; silicone tape. a layer of dry max was applied on top of the adaptic touch. Unna Boot Application: zinc paste wrap applied to both lower extremities followed by a layer of kerlix, cast padding, 4ANDquot; coban and topped with a piece of stockinet from behind the toes to 1ANDquot; below the knee. Toes are warm and pink before and and post application with a + dorsal pedis pulse on palpation. It was demonstrated to the patient how to check for adequate circulation. If the patient exhibits a change in color to the extremity, change in temperature, increased pain, or the boot becomes wet or too tight, the patient was instructed to remove the boot or go to the Emergency Department. Patient voices understanding with intent to comply. CirAids to be ordered for maintenance therapy. Use pneumatic compression pumps twice daily with 40-50 mmhg compression Systemic Rx: Doxycycline 100 mg by mouth twice daily x 14 days and zinc 220 mg by mouth daily x 14 days (Completed.) Nutritional Support: MVI, Zinc Supplement and Protein Supplement Patient is instructed to continue a healthy, well-balanced diet for nutritional support for optimal healing. Protein is the most important nutrient for wound healing. Eating adequate amounts of protein allows the body to create new cells and chemicals to heal the wound, and increases the body?s ability to fight infection. Eating high protein foods daily is recommended such as: lean meats, fish, poultry, cheese, milk, yogurt, eggs and legumes. Vitamins and minerals provide a full range of nutrients for wound healing. It can help ANDquot;jump startANDquot; the body's production of cells and chemicals needed for healing. Vitamins and minerals can be obtained through healthy foods in your diet and by taking a multiple vitamin supplement. Vitamin C is essential for collagen synthesis. Collagen and fibroblasts compose the basis for the structure of a new wound bed. Also, a deficiency of Vitamin C prolongs the healing time and contributes to reduced resistance to infection. Laboratory: We will obtain wound cultures to determine bacterial load. Results positive for few Enterobacter cloacae complex and many Staph aureus. No anaerobic organisms or fungal elements. Wound cultures are collected to assess level of bacterial bio-burden. Excessive bio-burden can result in inflammatory and proliferative phase stagnation as well as compromise of normal wound healing physiology. Bacterial proliferation, biofilm production, critical colonization and the development of resistant organism can lead to wound infection, wound deterioration and devastating tissue loss. Knowing the organism that populated the wound can help direct therapy, particularly anti-microbial dressing choices. Vascular Evaluation: PVRs for both lower extremities to evaluate for arterial insufficiency to see if poor circulation is an issue regarding her slow healing. Based on vascular studies, patient to see Dr. Lili Mcnair for further evaluation and management of venous disease (valvular incompetency). Follow-up is scheduled in 1 week, sooner with any concerns or worsening symptoms. Luis Simons CNP Charge Capture: [id number] Luis Simons CNP, LOI 01/03/2018 11:03 AM In Progress DATE OF VISIT: 12/30/2017 REASON FOR VISIT: Non-healing lower extremity wound. HISTORY OF PRESENT ILLNESS: Rosa Beltran is a 81 year old female who presents to the [facility] for further evaluation and management of a non-healing leg wound. She has a past medical history significant for atrial fibrillation on Coumadin, coronary artery disease,?COPD, hypertension, dyslipidemia and CHF.?Patient has felt mildly short of breath over the past month. ?Increase with exertion and lying flat. She is on 40 mg of Lasix twice a day. She still is urinating appropriately. She has not had any chest pain or palpitations. ?Fever, chills, or sweats. ?No productive cough. ?No wheezing. Upon taking patients vitals, her SPO2 level was from 76% - 85%. Patient stated she had shortness of breath. She was unable to finish her sentences without catching her breath. The tips of her fingers were cyanotic. Patient was sent to the ER for further evaluation. Tiffanie BARBOSA wheeled patient to the ER. INTERVAL HISTORY: Patient was sent tot he ED during her previous visit due to low oxygenation. She is now on 2 L of oxygen at all times. She denies any breathing difficulty at this time. She is an 81 year old white female with a long-standing history of swelling in her lower extremities secondary to lymphedema. Approximately 2 years ago, she sustained a fracture to her right ankle, requiring surgical intervention. The operative site became infected, and required prolonged treatment and eventually a skin graft for complete wound closure. As a result, the patient's ambulatory capacity has been impaired. Furthermore, she is morbidly obese which limits her ambulation. The patient leads a relatively sedentary lifestyle and requires a walker for ambulation. She spends a great part of her day in a sitting position. She sleeps with the head of the bed elevated. Swelling in her lower extremities has been on-going for many years. The patient has undergone a battery of diagnostic tests. A non-invasive lower extremity arterial study in December 2016 reveals normal-ankle brachial indices, bilaterally. Venous doppler examination on 01/14 reveals incompetence of the great saphenous veins, bilaterally. There is also incompetence of the small saphenous veins, bilaterally and the right accessory saphenous vein. At present, she has three wounds, 2 on the right distal leg and the other is on the left posterior calf. The left leg wound has been present for over a year and was managed with silver alginate, NPWT, Santyl, serial sharp wound debridements, compression therapy using Surepress and compression pumps. Patient's wound cultures over the past several months have grown out Enterobacter cloacae, MRSA, coag-staph aureus, and in January grew out Pseudomonas, managed with oral antibiotics. IIn July of this year, she developed a new wound on the right lateral distal leg, then in July, she experience cellulitis of both legs requiring hospitalization. In the last year, she has been followed by Dr. Jaskaran Chance at the [facility]. It was felt that her home support system was inadequate and that she may not have the resources in her home environment to appropriately care for her needs. In this regard, a geriatric social work professor consultation had been recommended on several occassions, but patient apparently insisted on remaining in her home environment despite that there was thought that is may be less than optimal. The patient is here at the [facility] for a second opinion regarding management of the abovementioned bilateral lower extremity wounds. She offers no other complaints. She denies any fevers, chills, wound-related pain or other related symptoms. 12/30/17 Patient presents for follow-up. Overall, her lower extremity wounds are progressing favorably. One of the three is now healed. The remaining two show evidence of wound contraction and granulation tissue formation. To date, wounds have been managed with sharp debridement, collagen/anti-microbial dressing, compression therapy and nutritional support. She offers no new complaints. The edema in her lower extremities is well-controlled. She denies any fever, chills or other related symptoms. PAST MEDICAL HISTORY Diagnosis Date - Acquired hypothyroidism - Acute respiratory failure with hypoxia (HCC) 09/30/2017 - Atrial fibrillation ([facility]) - CAD (coronary artery disease) Dr. Brenda Awan Hts, Promus element KIMMY LAD 11/20/2012, Stress test 04/2014 inferoapical reversible ischemia,small LVEF 48-50%, LHC 12/2014 L main-normal, LAD widely patent, Cx diffuse mild luminal irregularities with 80%focal stenosis distal, RCA dominant with minimal luminal irregularities. 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 - Pure hypercholesterolemia - Rheumatoid arthritis ([facility]) 2007 - Sleep apnea - Stented coronary artery 12/29/2016 PAST SURGICAL HISTORY Procedure Laterality Date - CC CORONARY STENT 11/20/2012 KIMMY LAD - CC CORONARY STENT 12/20/2014 KIMMY, Cfx - SECTION HX - COLONOSCOPY 06/10/2017 [facility], Nonspecific cecal ulcer - GASTRIC BYPASS HX 1986 - HERNIA REPAIR HX 1987; 1989 - PAST SURGICAL HISTORY OF Right 09/2015 right tibia fracture ORIF - PAST SURGICAL HISTORY OF Right 01/20/2016 Removal of hardware, right tibia - TOTAL KNEE REPLACEMENT Right 2003 [facility]. - TOTAL KNEE REPLACEMENT Left 2004 [facility]. MEDICATIONS ergocalciferol, vitamin D2, (DRISDOL) 50,000 unit capsule Take 1 capsule by mouth once each week. levothyroxine (LEVOXYL) 100 mcg tablet Take 1 tablet by mouth once daily. Take on empty stomach. For Thyroid. gabapentin (NEURONTIN) 300 mg capsule Take 1 capsule by mouth twice daily. metoprolol tartrate, short acting, (LOPRESSOR) 50 mg tablet TAKE ONE TABLET BY MOUTH TWICE DAILY furosemide (LASIX) 40 mg tablet Take 1 tablet by mouth twice daily. COMPOUNDED PRESCRIPTION Calcium Alginate 4x4 Dressing, change daily Dx: Blister left leg with infection S80.822A, L08.9; Lymphedema I89.0. Wound dimensions: 4 x 3 cm acetaminophen (TYLENOL) 500 mg tablet Take 1,000 mg by mouth every 8 hours as needed. aspirin, enteric coated (ASPIRIN, ENTERIC COATED) 81 mg EC tablet Take 81 mg by mouth once daily. warfarin (COUMADIN) 1 mg tablet Take 1 mg by mouth daily as directed. Take 1 tablet (1mg) by mouth once daily. Take with 1 x 3mg tablet to total 4mg by mouth once daily. warfarin (COUMADIN) 3 mg tablet Take 3 mg by mouth daily as directed. Take 1 tablet (3mg) by mouth once daily. Take with 1 x 1mg tablet to total 4mg by mouth once daily. lisinopril (ZESTRIL) 2.5 mg tablet Take 2.5 mg by mouth once daily. omeprazole (PRILOSEC) 20 mg capsule Take 20 mg by mouth once daily. spironolactone (ALDACTONE) 25 mg tablet Take 25 mg by mouth once daily. docusate sodium (COLACE) 100 mg capsule Take 100 mg by mouth once daily as needed. therapeutic multivitamin w/ iron (THERAGRAN-M) 9 mg iron-400 mcg tablet Take 1 tablet by mouth once daily. ALLERGIES No Known Allergies FAMILY HISTORY: Patient's father in his 70s with a history of arthritis. Her mother at the age of 90 with a history of arthritis. SOCIAL HISTORY Patient is a , lives alone, but has a son nearby. She has 6 children. Substance Use Topics - Smoking status: Passive Smoke Exposure - Never Smoker - Smokeless tobacco: Never Used Comment: smoked for 40 years - Alcohol use No REVIEW OF SYSTEM: PAIN ASSESSMENT: Negative for pain, history of chronic pain, or current treatment for a chronic pain condition. GENERAL: No weight loss, malaise or fevers HEENT: Negative for frequent or significant headaches, No changes in hearing or vision, no nose bleeds or other nasal problems NECK: Negative for lumps, goiter, pain and significant neck swelling RESPIRATORY: Negative for cough, hemoptysis, wheezing, positive for shortness of breath CARDIOVASCULAR: Negative for chest pain,palpitations; has chronic leg swelling GI: No nausea, vomiting, or diarrhea : No history of dysuria, frequency or incontinence MUSCULOSKELETAL: Negative for joint pain or swelling, back pain or muscle pain SKIN: As per HPI. Negative for any other lesions, rash, and itching PSYCH: Negative for sleep disturbance, mood disorder and recent psychosocial stressors HEMATOLOGY/LYMPHOLOGY: Negative for prolonged bleeding, bruising easily or swollen nodes ENDOCRINE: Negative for cold or heat intolerance, polyuria, polydipsia and goiter NEURO: No history of headaches, syncope, paralysis, seizures or tremors 12/19/17 1000 BP: 135/69 Pulse: 60 Resp: 16 Temp: 36.5 ?C (97.8 ?F) TempSrc: Oral SpO2: 94% Weight: 88.1 kg (194 lb 4.8 oz) PHYSICAL EXAMINATION: HEENT: PERRLA , sclera non-icteric, EOM intact, mucous membrane moist, pink and w/o lesions Comments: Neck: Supple, no bruit, no masses, trachea midline Comments: Chest: Lungs clear to auscultation, no accessory muscle use for respiration Comments: Heart: Regular rate/rhythm, normal S1,S2, no murmur, rubs or gallops Comments: Abdomen: Soft, non-tender, non-distended, + bowel sounds, no bruit, no organomegaly Comments: Extremity: Dorsalis pedis : Present (Y) Absent Diminished Doppler Posterior Tibialis: Present (Y) Absent Diminished Doppler Capillary Refill: ANDlt; 3 sec. (Y) ANDgt; 3 sec. ABIs: Right Left Rubor of Dependency: Negative (Y) Positive (N) [place] Examination: Comments: Measurements: Right Calf: 36.5 cm Right Ankle: 29 cm Left Calf: 37.5 cm Left Ankle: 24.2 cm Neuro: Alert ANDamp; oriented x3, AUTOMOTIVE SALES REPRESENTATIVE II-XII grossly intact, reflexes 2+ and symmetric, UE/LE 5/5 Comments: Skin: No rashes, no abnormal skin lesions Comments: See wound assessment Most recent diagnostic/laboratory data: 10/14/17 Hemoglobin A1C = 5.8 ?? 10/14/17 WBC 8.4, Hgb 12.2, Hct 38.5, PLT 211, Glu 91, BUN 24, Cr 0.88, Na 136, K 4.7, Cl 100, Albumin 3.6, Total protein 9.1 11/04/17 Venous Doppler Study Bilateral Lower Extremities IMPRESSION RIGHT SIDE - DEEP VEINS Negative for acute deep vein thrombosis in vessels visualized. Positive for valvular incompetency in the common femoral vein and femoral vein. Lymph node noted, within the groin, measuring 2.75 x 2.71 x .809cm. Cystic structure noted, within the popliteal fossa, measuring 2.17 x 2.67 x 1.49cm. ? RIGHT SIDE - SUPERFICIAL VEINS Positive for valvular incompetency in the great saphenous vein. REFLUX ONLY NOTED AT PROXIMAL THIGH. Vessel becomes tortuous branching from proximal to distal calf. The anterior lateral branch is negative for incompetency. Positive for valvular incompetency in the small saphenous vein. REFLUX ONLY NOTED AT DISTAL CALF. LEFT SIDE - DEEP VEINS Negative for acute deep vein thrombosis in vessels visualized. Positive for valvular incompetency in the femoral vein at the mid thigh. LEFT SIDE - SUPERFICIAL VEINS Positive for valvular incompetency in the great saphenous vein. REFLUX ONLY NOTED AT MID CALF. Negative for valvular incompetency in the small saphenous vein. No previous scans for comparison; however, chronic appearing superficial thrombophlebitis in the great saphenous vein at the distal calf. ? Technologist: Cleo Magdaleno RVT Ordering physician: Luis Simons ? Interpreting physician: Vishal Torres MD, RVT ? 01/24/17 Segmental arterial doppler study bilateral lower extremities Findings: NIMISHA 1.04 to the right and 1.0 to the left. Based upon the findings of this resting non-invasive lower extremity arterial study, arterial perfusion to ankle level appears to be relatively normal bilaterally. Triphasic and biphasic waveforms were noted at ankle level bilaterally. Resting ankle- brachial indices were bilaterally normal. ? 08/01/17 X-Ray 3-View Right Ankle Impression: There is prior open reduction internal fixation of the fibula which appears to be relatively intact allowing for advanced bony osteopenia. There is an irregular appearance of the lateral side distal tibia which is compatible with a prior fracture for which a new fracture on the lateral side is not excluded. The fracture could be potentially be associated with new trauma or potentially infection. Recommend consideration for follow- up study such as MRI or potentially three-phase bone scan. ? Flattened appearance of the arch of the foot with degenerative change of the tarsotarsal joints. ? Diffuse soft tissue swelling. ? Electronically Signed: Kelly Camarena MD at 20:15 EDT Tel , Service support , ? 10/14/17 XR 2 View Tib/Fib (Left) Findings: Left tibia-fibula: Tibial component of the joint prosthesis noted without associated abnormal lucency. No acute fracture or bony destruction. Right tibia and fibula: Plate and screw fixation remote distal fibular fracture. There is also remote tibial fracture with residual posterior angulation. Ghost tracks from previous tibial hardware. Tibial component of the joint prosthesis noted without associated abnormal lucency. No acute fracture or bony destruction. ? Stereotype Finisher: DWIGTH ? Transcribe Date/Time: Oct 14 2017 ?4:02P Dictated by : ZURDO SANTOS MD ? 10/14/17 XR 2 View Tib/Fib (Right) Findings: Left tibia-fibula: Tibial component of the joint prosthesis noted without associated abnormal lucency. No acute fracture or bony destruction. Right tibia and fibula: Plate and screw fixation remote distal fibular fracture. There is also remote tibial fracture with residual posterior angulation. Ghost tracks from previous tibial hardware. Tibial component of the joint prosthesis noted without associated abnormal lucency. No acute fracture or bony destruction. ? Stereotype Finisher: DWIGHT ? Transcribe Date/Time: Oct 14 2017 ?4:02P Dictated by : ZURDO SANTOS MD ? 10/14/17 XR 2 View Tib/Fib (Left) Findings: Left tibia-fibula: Tibial component of the joint prosthesis noted without associated abnormal lucency. No acute fracture or bony destruction. Right tibia and fibula: Plate and screw fixation remote distal fibular fracture. There is also remote tibial fracture with residual posterior angulation. Ghost tracks from previous tibial hardware. Tibial component of the joint prosthesis noted without associated abnormal lucency. No acute fracture or bony destruction. WOUND ASSESSMENT: Wound Number: 1 First Assessed Date: 10/14/17 Pre-existing: YES Location: Leg Orientation: Right, Lateral and Distal Wound Etiology: Venous Depth of Tissue Injury (Non-pressure): Full Thickness Diabetic Wounds:N/A Pressure Injury: N/A Pre-Measurements Initial (First Visit): 3.5 cm length x 4.0 cm width x 0.5 cm depth Post Measurement (Current): 3.0 cm length x 4.0 cm width x 0.4 cm depth % Healing Rate/#Weeks: 36.5 % -- Week 7 Wound Bed (Post-debridement): 100% red % of Healthy tissue: Undermining: No Tunneling: No Tendon/bone exposed: NO Wound Edge/Margins: Irregular wound edges and Edge attached to base Periwound Tissue: Mild erythema, Wet (macerated), and Edema Exudate Amount:Moderate Consistency:Serous Odor:Minimal Infection/Critical Colonization Localized s/s: Non-healing and Increased exudate Systemic s/s: None Local/systemic Rx: None Wound Healing Status: Chronic Clinically presenting as: Stalled wound healing Current topical treatment: Iodoflex Wound Number: 2 First Assessed Date: 10/14/17 Pre-existing: YES Location: Leg Orientation: Right, Medial and Distal Wound Etiology: Surgical Depth of Tissue Injury (Non-pressure): Partial Thickness Diabetic Wounds:N/A Pressure Injury: N/A Pre-Measurements Initial (First Visit): 0.5 cm length x 0.4 cm width x 0.1 cm depth Post Measurement (Current): Epithelialized % Healing Rate/#Weeks: Week 1 -- Healed Wound Bed (Post-debridement): % of Healthy tissue: Undermining: No Tunneling: No Tendon/bone exposed: NO Wound Edge/Margins: Normal, intact, Irregular wound edges and Edge attached to base Periwound Tissue: Normal, intact,uninvolved tissue and Dry,flaky Exudate Amount: None Consistency: None Odor:None Infection/Critical Colonization Localized s/s: None and Edema Systemic s/s: None Local/systemic Rx: None Wound Healing Status: Chronic Clinically presenting as: Healed Current topical treatment: Iodoflex Wound Number: 3 First Assessed Date: 10/14/17 Pre-existing: YES Location: Leg (calf) Orientation: Left and Posterior Wound Etiology: Venous Depth of Tissue Injury (Non-pressure): Full Thickness Diabetic Wounds:N/A Pressure Injury: N/A Pre-Measurements Initial (First Visit): 1.3 cm length x 1.2 cm width x 0.1 cm depth Post Measurement (Current): Epithelialized % Healing Rate/#Weeks: 100 % -- Week 5 Wound Bed (Post-debridement): 100% [employer] % of Healthy tissue: Undermining: No Tunneling: No Tendon/bone exposed: NO Wound Edge/Margins: Well-defined wound edges and Edge attached to base Periwound Tissue: [employer], dry and intact, No fluctuance, induration or advancing soft tissue necrosis or ischemia Exudate: Nonr Consistency: None Odor:None Infection/Critical Colonization: N/A Localized s/s: None Systemic s/s: None Local/systemic Rx: None Wound Healing Status: Chronic Clinically presenting as: Healed Current topical treatment: Collagen IMPRESSION: 1. Non-healing right and left lower extremity wounds ( #1 and #3) in the setting of chronic venous insufficiency with secondary lymphedema. 2. Recurrent right medial leg wound s/p STSG in the setting of chronic edema. 3. Significant lower extremity edema secondary to underlying chronic venous insufficiency with secondary lymphedema. 4. Multiple risk factors or co-morbidities that may contribute to wound healing difficulties include hypothyroid disease, chronic atrial fibrillation on anticoagulation, coronary artery disease, COPD, dyslipidemia, hypertension, muscle weakness, osteoarthritis, GERD, depression and obesity. 5. Wound cultures positive for Enterobacter cloacae and Staph aureus most likely increased colonization. 6. Very good glucose control based on recent HgbA1c. 7. Zinc insufficiency ( precursor for collagen synthesis. 8. No significant arterial disease based on recent PVRs. 9. No evidence of osteomyelitis based on recent XRs. 10. Valvular incompetency involving the right common femoral vein , right femoral vein, right great saphenous vein, left femoral vein (mid thigh) and left great saphenous vein (mid thigh). TREATMENT PLAN: Debridement Type: Autolytic Enzymatic Mechanical Surgical Sharp (Y) Other: ?? Sharp debridement is performed to ANDquot;freshen upANDquot; the wound and stimulate the healing cascade. It allows the wound to progress from the inflammatory to the proliferative phase of wound healing. Wound Dressing: See Nursing Notes for details. . Topical Rx: Right lateral distal leg: Wound flushed with 10 cc of saline solution. Pat dry. Collagen powder applied to the wound bed. Covered with adaptic touch secured with 2ANDquot; silicone tape. a layer of dry max was applied on top of the adaptic touch. Unna Boot Application: zinc paste wrap applied to both lower extremities followed by a layer of kerlix, cast padding, 4ANDquot; coban and topped with a piece of stockinet from behind the toes to 1ANDquot; below the knee. Toes are warm and pink before and and post application with a + dorsal pedis pulse on palpation. It was demonstrated to the patient how to check for adequate circulation. If the patient exhibits a change in color to the extremity, change in temperature, increased pain, or the boot becomes wet or too tight, the patient was instructed to remove the boot or go to the Emergency Department. Patient voices understanding with intent to comply. CirAids to be ordered for maintenance therapy. Use pneumatic compression pumps twice daily with 40-50 mmhg compression Systemic Rx: Doxycycline 100 mg by mouth twice daily x 14 days and zinc 220 mg by mouth daily x 14 days (Completed.) Nutritional Support: MVI, Zinc Supplement and Protein Supplement Patient is instructed to continue a healthy, well-balanced diet for nutritional support for optimal healing. Protein is the most important nutrient for wound healing. Eating adequate amounts of protein allows the body to create new cells and chemicals to heal the wound, and increases the body?s ability to fight infection. Eating high protein foods daily is recommended such as: lean meats, fish, poultry, cheese, milk, yogurt, eggs and legumes. Vitamins and minerals provide a full range of nutrients for wound healing. It can help ANDquot;jump startANDquot; the body's production of cells and chemicals needed for healing. Vitamins and minerals can be obtained through healthy foods in your diet and by taking a multiple vitamin supplement. Vitamin C is essential for collagen synthesis. Collagen and fibroblasts compose the basis for the structure of a new wound bed. Also, a deficiency of Vitamin C prolongs the healing time and contributes to reduced resistance to infection. Laboratory: We will obtain wound cultures to determine bacterial load. Results positive for few Enterobacter cloacae complex and many Staph aureus. No anaerobic organisms or fungal elements. Wound cultures are collected to assess level of bacterial bio-burden. Excessive bio-burden can result in inflammatory and proliferative phase stagnation as well as compromise of normal wound healing physiology. Bacterial proliferation, biofilm production, critical colonization and the development of resistant organism can lead to wound infection, wound deterioration and devastating tissue loss. Knowing the organism that populated the wound can help direct therapy, particularly anti-microbial dressing choices. Vascular Evaluation: PVRs for both lower extremities to evaluate for arterial insufficiency to see if poor circulation is an issue regarding her slow healing. Based on vascular studies, patient to see Dr. Lili Mcnair for further evaluation and management of venous disease (valvular incompetency). Follow-up is scheduled in 1 week, sooner with any concerns or worsening symptoms. Luis Simons CNP Charge Capture: [id number] Luis Simons CNP, GROUND SYSTEMS ENGINEER 01/03/2018 11:03 AM Signed A procedural pause was conducted immediately prior to starting the wound debridement to verify correct patient identity using two patient identifiers: the correct site and correct procedure. Permission from the patient to perform the procedure was obtained. After providing local analgesia with Lidocaine 2% gel, a full-thickness excisional debridement of the right lower leg wound was performed and carried through the skin and subcutaneous tissue, using a sterile #15 blade, iris scissors, and forceps to remove the non-viable or devitalized tissue. The debridement extended into the viable wound margin/s to promote a healthy, active wound edge to support healing. The patient tolerated the procedure well without complications. Hemostasis was achieved with direct pressure. The wound/s was/were then copiously irrigated with sterile normal saline and dressings were applied. 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 Dressing removed with dakins Saline 0.9% solution applied to all wounds In the presence and direction of the provider wound care as written below: Photos taken Right lateral distal leg: Both legs are grossly swollen today. Right ankle increased by 3.8 cm, left ankle is increased by 7.2 cm. Wound flushed with 10 cc of saline solution. Pat dry. Collagen powder applied to the wound bed. Covered with adaptic touch secured with 2ANDquot; silicone tape. a layer of dry max was applied on top of the adaptic touch. Unna Boot Application: zinc paste wrap applied to both lower extremities followed by a layer of kerlix, cast padding, 4ANDquot; coban and topped with a piece of stockinet from behind the toes to 1ANDquot; below the knee. Toes are warm and pink before and and post application with a + dorsal pedis pulse on palpation. It was demonstrated to the patient how to check for adequate circulation. If the patient exhibits a change in color to the extremity, change in temperature, increased pain, or the boot becomes wet or too tight, the patient was instructed to remove the boot or go to the Emergency Department. Patient voices understanding with intent to comply. Marlen wrapped right leg Tiffanie wrapped left leg #1 Right lateral distal leg: Lido gel applied prior to the SQ debridement per provider. L: 3.0 cm x W: 4.0 cm x D: 0.4 cm #2 Right medial distal leg: Remains closed. #3 left distal calf: Remains closed. Measurements: Right Calf: 55 cm Right Ankle: 33.3 cm Left Calf: 49.5 cm Left Ankle: 32.7 cm PLAN: Return to the Wound Center in 2 weeks to see Marlen Please bring your creams to the wound center - every visit Hold Home Care for now Copy of wound care instructions faxed to [facility] Home Care EDUCATION: The patient/family was instructed how to wash the wound(s) with dial soap, rinsing with water, ANDamp; patting dry. Visual demonstration on how to apply the dressing. Signs ANDamp; symptoms of infection were reviewed: Increased redness, swelling, pain, green, yellow drainage, fever or chills all would need to be evaluated by a Physician. Patient received typed homegoing wound care instructions and has expressed intent to comply. Tiffanie Humphrey, RN, RN 12/30/2017 2:53 PM Addendum WOUND CARE INSTRUCTIONS Wound location: Right lower leg wound. Venous insufficiency bilateral lower legs Please keep dressing clean and dry 1. Wash your hands with soap and water before and after wound care. 2. Gather all supplies needed. 3. Wash wound with Dial soap and water. Pat dry. 4. Apply collagen to the wound base. 5. Cover with 4x4's, abd pad, 6. Apply bilateral single layer zinc unna boot from behind the toes to 1ANDquot; below the knee. cover with cast padding(fluff), and coban wrap 7. Change your dressing weekly You may purchase cast covers to wear to allow you to shower To give your wound the best chance to heal: - Eat three balanced meals daily focusing on the protein - Control swelling by elevating the extremity above your heart - exercise the extremity - Complete your wound care instructions - Vitamin C 500 mg twice daily - Multiple Vitamin Daily - Drink a protein shake daily - continue home care Report any of the following changes to the Wound Center at [phone] or go to the Emergency Department: ? Fever or chills ? Increased drainage ? Green or yellow drainage ? Foul odor ? Increased pain ? Hardness around the wound ? Redness, warmth or swelling of the surrounding tissue ? 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) [L97.912] Other Visit Diagnoses:Venous insufficiency (chronic) (peripheral) [I87.2] Secondary lymphedema [I89.0] Prescriptions as of 12/30/2017 Sig: X METOPROLOL TARTRATE 25 MG TAB* Take 0.5 tablets by mouth twi* VITAMIN C ORAL Take 1 tablet by mouth twice * METOLAZONE 2.5 MG TABLET Take 1 tablet by mouth once d* WARFARIN 1 MG TABLET TAKE ONE TABLET BY MOUTH ONCE* SILVER SULFADIAZINE 1 % TOPIC* Apply to leg wounds as direct* ACETAMINOPHEN 500 MG TABLET Take 1,000 mg by mouth every * ASPIRIN 81 MG TABLET,DELAYED * Take 81 mg by mouth every jean* WARFARIN 1 MG TABLET Take 1 mg by mouth daily as d* WARFARIN 3 MG TABLET Take 3 mg by mouth daily as d* LISINOPRIL 2.5 MG TABLET Take 2.5 mg by mouth every ev* OMEPRAZOLE 20 MG CAPSULE,LUIS MIGUEL* Take 20 mg by mouth once oliver* DOCUSATE SODIUM 100 MG CAPSULE Take 100 mg by mouth once yuly* MULTIVITAMIN-IRON 9 MG-FOLIC * Take 1 tablet by mouth once d* X SPIRONOLACTONE 25 MG TABLET Take 25 mg by mouth every jean* ERGOCALCIFEROL (VITAMIN D2) 5* Take 1 capsule by mouth once * LEVOTHYROXINE 100 MCG TABLET Take 1 tablet by mouth once d* GABAPENTIN 300 MG CAPSULE Take 1 capsule by mouth twice* FUROSEMIDE 40 MG TABLET Take 1 tablet by mouth twice * COMPOUNDED PRESCRIPTION Calcium Alginate 4x4 Dressing* ZINC SULFATE 220 MG TABLET Take 1 tablet by mouth once d* Patient not taking: Reported on 12/19/2017 Problem List As Of Date 12/30/2017 Noted Resolved Gastroesophageal reflux disease without esophag*INVALID FOR* Chronic atrial fibrillation (HCC) [I48.2] INVALID FOR* Priority: B More... Pure hypercholesterolemia [E78.00] Hypertension [I10] Priority: D More... Acquired hypothyroidism [E03.9] Priority: F More... CAD (coronary artery disease) [I25.10] More... Depressive disorder [F32.9] INVALID FOR*07/18/2017 Primary osteoarthritis involving multiple joint*INVALID FOR* Lymphedema of both lower extremities [I89.0] INVALID FOR* Priority: C More... Mouth dryness [R68.2] INVALID FOR* Muscular weakness [M62.81] INVALID FOR* Dorsalgia [M54.9] INVALID FOR* Stented coronary artery [Z95.5] INVALID FOR* Priority: A Gastric bypass status for obesity [Z98.84] INVALID FOR* Priority: C Bilateral leg ulcer (HCC) [L97.919, L97.929] INVALID FOR* Priority: E More... Polyneuropathy (HCC) [G62.9] INVALID FOR* Cecal ulcer [K63.3] INVALID FOR* Acute respiratory failure with hypoxia (HCC) [J*INVALID FOR*10/10/2017 Priority: Severe Anticoagulation goal of INR 2 to 3 [Z51.81, Z79*INVALID FOR* Priority: Mild More... ANASARCA/HYPOXIA 09/30/17 ADMISSION SUMMARY [Z9*INVALID FOR* Priority: Very Severe More... Skin bulla [R23.8] INVALID FOR* Priority: Mild More... Respiratory failure with hypoxia (HCC) [J96.91] INVALID FOR* Priority: Severe Heart failure with preserved ejection fraction *INVALID FOR* Priority: A More... Physical debility [R53.81] INVALID FOR* Priority: Moderate More... Requires continuous at home supplemental oxygen*INVALID FOR* More... Acute exacerbation of CHF (congestive heart mag*INVALID FOR* Other instructions from your clinician: WOUND CARE INSTRUCTIONS Wound location: Right lower leg wound. Venous insufficiency bilateral lower legs Please keep dressing clean and dry 1. Wash your hands with soap and water before and after wound care. 2. Gather all supplies needed. 3. Wash wound with Dial soap and water. Pat dry. 4. Apply collagen to the wound base. 5. Cover with 4x4's, abd pad, 6. Apply bilateral single layer zinc unna boot from behind the toes to 1 below the knee. cover with cast padding(fluff), and coban wrap 7. Change your dressing weekly You may purchase cast covers to wear to allow you to shower To give your wound the best chance to heal: - Eat three balanced meals daily focusing on the protein - Control swelling by elevating the extremity above your heart - exercise the extremity - Complete your wound care instructions - Vitamin C 500 mg twice daily - Multiple Vitamin Daily - Drink a protein shake daily - continue home care Report any of the following changes to the Wound Center at [phone] or go to the Emergency Department: ? Fever or chills ? Increased drainage ? Green or yellow drainage ? Foul odor ? Increased pain ? Hardness around the wound ? Redness, warmth or swelling of the surrounding tissue ? 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 Dressing removed with dakins Saline 0.9% solution applied to all wounds In the presence and direction of the provider wound care as written below: Photos taken Right lateral distal leg: Both legs are grossly swollen today. Right ankle increased by 3.8 cm, left ankle is increased by 7.2 cm. Wound flushed with 10 cc of saline solution. Pat dry. Collagen powder applied to the wound bed. Covered with adaptic touch secured with 2 silicone tape. a layer of dry max was applied on top of the adaptic touch. Unna Boot Application: zinc paste wrap applied to both lower extremities followed by a layer of kerlix, cast padding, 4 coban and topped with a piece of stockinet from behind the toes to 1 below the knee. Toes are warm and pink before and and post application with a + dorsal pedis pulse on palpation. It was demonstrated to the patient how to check for adequate circulation. If the patient exhibits a change in color to the extremity, change in temperature, increased pain, or the boot becomes wet or too tight, the patient was instructed to remove the boot or go to the Emergency Department. Patient voices understanding with intent to comply. Marlen wrapped right leg Tiffanie wrapped left leg #1 Right lateral distal leg: Lido gel applied prior to the SQ debridement per provider. L: 3.0 cm x W: 4.0 cm x D: 0.4 cm #2 Right medial distal leg: Remains closed. #3 left distal calf: Remains closed. Measurements: Right Calf: 55 cm Right Ankle: 33.3 cm Left Calf: 49.5 cm Left Ankle: 32.7 cm PLAN: Return to the Wound Center in 2 weeks to see Marlen Please bring your creams to the wound center - every visit Hold Home Care for now Copy of wound care instructions faxed to [facility] Home Care EDUCATION: The patient/family was instructed how to wash the wound(s) with dial soap, rinsing with water, AND patting dry. Visual demonstration on how to apply the dressing. Signs AND symptoms of infection were reviewed: Increased redness, swelling, pain, green, yellow drainage, fever or chills all would need to be evaluated by a Physician. Patient received typed homegoing wound care instructions and has expressed intent to comply. Encounter Status:Closed by LUIS SIMONS on 01/03/18 PROGRESS Observed: 12/26/2017 Status: COMPLETED Source: [place] 1:51 PM [facility] [place] REPOSITORY HNO ID: [id number] Author: Maritza Tian [facility] Service: (none) Author Type: Registered Nurse Type: Progress Notes Filed: 12/26/2017 1:57 PM Note Text: TRANSITION CARE MANAGEMENT (TCM) INITIAL CONTACT Provider Action/FYI: Pt feeling well. Grateful for call to F/U- she stated she feels much better after call. Has F/U 12/29. Initial contact with patient post discharge, spoke to Rosa. Patient identified by name and . SUMMARY: -Pt discharged from [facility] on 12/21/17. Adm 12/19 -Follow up appointment on 12/29/17 w/Dr Newman. -Medication review done yes. -Admitted for: CHF CONCERNS: Pt feeling pretty well. Has to really work to keep legs elevated as she is up and around. She sleeps in recliner and I recc she use pillows under her legs as well. NEW MEDICATIONS: Zaroxoyln 2.5mg daily. MEDS HELD/DISCONTINUED: None BRIEF HOSPITAL COURSE: Hospital Course: ? Active Hospital Problems ?? Diagnosis - Heart failure with preserved ejection fraction (HCC) ? SOB, increased BLE, weight up by 20 lbs this month. On home 02 2L. ECHO 04/2017: EF 65%, biatrial enlargement, mild MVI, moderated TVI, mild-mod PVI, Pulm HTN 54 mmHg. Fluid restrict, Strict IANDO, daily weights. Lasix 40mg BID IVP. Changed back to home medication of lasix. ? Negative nearly 8.5 liters in 2 days - Chronic atrial fibrillation (HCC) ? On coumadin. ?Rate controlled and on metoprolol. Tele. Bradycardia - decreased Metoprolol 12.5 mg BID - hold if less than 60 ? To increase aldactone 25 mg BID - Lymphedema of both lower extremities ? Wound/skin consult. Right lateral distal lower leg with ulcer measuring 2.5 ?2.8 x 0.4 cm with pink base covered with translucent film Bilateral leg wrap. - Hypertension ? Mildly elevated. ?Continue home meds and monitor. - Acquired hypothyroidism ? Continue synthroid. - Acute exacerbation of CHF (congestive heart failure) ?Hx of nml EF. ?? ?Pt will have HH from [facility] Visiting Nurse has Personal Touch will be closing office here and wound center at [place]. ANA Observed: 12/22/2017 Status: COMPLETED Source: [place] 12:00 AM [facility] [place] REPOSITORY Patient Outreach (INTMWS) ROSA BELTRAN ([id number]) 1935 F Date Time Provider Department 12/22/17 MARITZA RUSSELL INTTulioWS During your visit today, we recorded the following information about you: Maritza Tian, RN 12/26/2017 1:57 PM Signed TRANSITION CARE MANAGEMENT (TCM) INITIAL CONTACT Provider Action/FYI: Pt feeling well. Grateful for call to F/U- she stated ANDquot;she feels much betterANDquot; after call. Has F/U 12/29. Initial contact with patient post discharge, spoke to Rosa. Patient identified by name and . SUMMARY: -Pt discharged from [facility] on 12/21/17. Adm 12/19 -Follow up appointment on 12/29/17 w/Dr Newman. -Medication review done yes. -Admitted for: CHF CONCERNS: Pt feeling pretty well. Has to really work to keep legs elevated as she is up and around. She sleeps in recliner and I recc she use pillows under her legs as well. NEW MEDICATIONS: Zaroxoyln 2.5mg daily. MEDS HELD/DISCONTINUED: None BRIEF HOSPITAL COURSE: Hospital Course: ? Active Hospital Problems ?? Diagnosis - Heart failure with preserved ejection fraction (HCC) ? SOB, increased BLE, weight up by 20 lbs this month. On home 02 2L. ECHO 04/2017: EF 65%, biatrial enlargement, mild MVI, moderated TVI, mild-mod PVI, Pulm HTN 54 mmHg. Fluid restrict, Strict IANDamp;O, daily weights. Lasix 40mg BID IVP. Changed back to home medication of lasix. ? Negative nearly 8.5 liters in 2 days - Chronic atrial fibrillation (HCC) ? On coumadin. ?Rate controlled and on metoprolol. Tele. Bradycardia - decreased Metoprolol 12.5 mg BID - hold if less than 60 ? To increase aldactone 25 mg BID - Lymphedema of both lower extremities ? Wound/skin consult. Right lateral distal lower leg with ulcer measuring 2.5 ?2.8 x 0.4 cm with pink base covered with translucent film Bilateral leg wrap. - Hypertension ? Mildly elevated. ?Continue home meds and monitor. - Acquired hypothyroidism ? Continue synthroid. - Acute exacerbation of CHF (congestive heart failure) ?Hx of nml EF. ?? ?Pt will have HH from [facility] Visiting Nurse has Personal Touch will be closing office here and wound center at [place]. Allergies As of Date: 12/22/2017 (No Known Allergies) Date Reviewed: 12/21/2017 Reviewed by: Anat (Elena) ELENA Cheung - Fully Assessed Reason for Visit: [facility] Follow Up [3799] Prescriptions as of 12/22/2017 Sig: METOPROLOL TARTRATE 25 MG TAB* Take 0.5 tablets by mouth twi* VITAMIN C ORAL Take 1 tablet by mouth twice * METOLAZONE 2.5 MG TABLET Take 1 tablet by mouth once d* WARFARIN 1 MG TABLET TAKE ONE TABLET BY MOUTH ONCE* SILVER SULFADIAZINE 1 % TOPIC* Apply to leg wounds as direct* ACETAMINOPHEN 500 MG TABLET Take 1,000 mg by mouth every * ASPIRIN 81 MG TABLET,DELAYED * Take 81 mg by mouth every jean* WARFARIN 1 MG TABLET Take 1 mg by mouth daily as d* WARFARIN 3 MG TABLET Take 3 mg by mouth daily as d* LISINOPRIL 2.5 MG TABLET Take 2.5 mg by mouth every ev* OMEPRAZOLE 20 MG CAPSULE,LUIS MIGUEL* Take 20 mg by mouth once oliver* SPIRONOLACTONE 25 MG TABLET Take 25 mg by mouth every jean* DOCUSATE SODIUM 100 MG CAPSULE Take 100 mg by mouth once yuly* MULTIVITAMIN-IRON 9 MG-FOLIC * Take 1 tablet by mouth once d* ERGOCALCIFEROL (VITAMIN D2) 5* Take 1 capsule by mouth once * LEVOTHYROXINE 100 MCG TABLET Take 1 tablet by mouth once d* GABAPENTIN 300 MG CAPSULE Take 1 capsule by mouth twice* FUROSEMIDE 40 MG TABLET Take 1 tablet by mouth twice * COMPOUNDED PRESCRIPTION Calcium Alginate 4x4 Dressing* Problem List As Of Date 12/22/2017 Noted Resolved Gastroesophageal reflux disease without esophag*INVALID FOR* Chronic atrial fibrillation (HCC) [I48.2] INVALID FOR* Priority: B More... Pure hypercholesterolemia [E78.00] Hypertension [I10] Priority: D More... Acquired hypothyroidism [E03.9] Priority: F More... CAD (coronary artery disease) [I25.10] More... Depressive disorder [F32.9] INVALID FOR*07/18/2017 Primary osteoarthritis involving multiple joint*INVALID FOR* Lymphedema of both lower extremities [I89.0] INVALID FOR* Priority: C More... Mouth dryness [R68.2] INVALID FOR* Muscular weakness [M62.81] INVALID FOR* Dorsalgia [M54.9] INVALID FOR* Stented coronary artery [Z95.5] INVALID FOR* Priority: A Gastric bypass status for obesity [Z98.84] INVALID FOR* Priority: C Bilateral leg ulcer (HCC) [L97.919, L97.929] INVALID FOR* Priority: E More... Polyneuropathy (HCC) [G62.9] INVALID FOR* Cecal ulcer [K63.3] INVALID FOR* Acute respiratory failure with hypoxia (HCC) [J*INVALID FOR*10/10/2017 Priority: Severe Anticoagulation goal of INR 2 to 3 [Z51.81, Z79*INVALID FOR* Priority: Mild More... ANASARCA/HYPOXIA 09/30/17 ADMISSION SUMMARY [Z9*INVALID FOR* Priority: Very Severe More... Skin bulla [R23.8] INVALID FOR* Priority: Mild More... Respiratory failure with hypoxia (HCC) [J96.91] INVALID FOR* Priority: Severe Heart failure with preserved ejection fraction *INVALID FOR* Priority: A More... Physical debility [R53.81] INVALID FOR* Priority: Moderate More... Requires continuous at home supplemental oxygen*INVALID FOR* More... Acute exacerbation of CHF (congestive heart mag*INVALID FOR* Encounter Status:Closed by MARITZA HOWE on 12/26/17 OCCULT BLOOD SCREEN Collected: 12/21/2017 Status: F Source: [facility] 4:40 PM [facility] OTHER CAMP[facility] REPOSITORY TYPE CODE TESTS RESULT OUT OF REFERENCE UNITS RANGE LAB OBSRCE Occult Stool Blood Source: LAB OBSC Occult Negative Blood Screen Performed By: #### OBSCN #### [facility] [address] [facility] [phone] CNDS Observed: 12/21/2017 Status: COMPLETED Source: [facility] 3:58 PM CLINIC OTHER CAMPUS REPOSITORY HNO ID: [id number] Author: Kenya Stevenson) Mike Service: Hospital Medicine Author Type: Physician Type: Discharge Summaries Filed: 12/21/2017 4:01 PM Note Text: DISCHARGE SUMMARY PATIENT NAME: Rosa Beltran ADMISSION DATE: 12/19/2017 DISCHARGE DATE: December 21, 2017 Attending Physician: Kenya Wilson MD Principle Diagnosis: Heart failure with preserved ejection fraction with fluid overload Secondary Diagnosis: ACTIVE PROBLEM LIST Gastroesophageal Reflux Disease Without Esophagitis Chronic Atrial Fibrillation (Hcc) Pure Hypercholesterolemia Hypertension Acquired Hypothyroidism Cad (Coronary Artery Disease) Primary Osteoarthritis Involving Multiple Joints Lymphedema of Both Lower Extremities Mouth Dryness Muscular Weakness Dorsalgia Stented Coronary Artery Gastric Bypass Status for Obesity Bilateral Leg Ulcer (Hcc) Polyneuropathy (Hcc) Cecal Ulcer Anticoagulation Goal of Inr 2 to 3 ANASARCA/HYPOXIA 09/30/17 ADMISSION SUMMARY Skin Bulla Respiratory Failure With Hypoxia (Hcc) Heart Failure With Preserved Ejection Fraction (Hcc) Physical Debility Requires Continuous At Home Supplemental Oxygen Acute Exacerbation of Chf (Congestive Heart Failure) (Hcc) Operations During Hospitalization: none Imaging during hospitalization: none Procedures During Hospitalization: none Hospital Course: Active Hospital Problems ? Diagnosis - Heart failure with preserved ejection fraction (HCC) ? ? SOB, increased BLE, weight up by 20 lbs this month. On home 02 2L. ECHO 04/2017: EF 65%, biatrial enlargement, mild MVI, moderated TVI, mild-mod PVI, Pulm HTN 54 mmHg. Fluid restrict, Strict IANDO, daily weights. Lasix 40mg BID IVP. Changed back to home medication of lasix. Negative nearly 8.5 liters in 2 days - Chronic atrial fibrillation (HCC) ? ? On coumadin. Rate controlled and on metoprolol. Tele. Bradycardia - decreased Metoprolol 12.5 mg BID - hold if less than 60 ? To increase aldactone 25 mg BID - Lymphedema of both lower extremities ? ? Wound/skin consult. Right lateral distal lower leg with ulcer measuring 2.5 ?2.8 x 0.4 cm with pink base covered with translucent film Bilateral leg wrap. - Hypertension ? ? Mildly elevated. Continue home meds and monitor. - Acquired hypothyroidism ? ? Continue synthroid. - Acute exacerbation of CHF (congestive heart failure) Hx of nml EF. ? Patient seen and examined on the day of discharge BP 123/77 Pulse 84 Temp 36.5 ?C (97.7 ?F) (Oral) Resp 18 Ht 162.6 cm (5' 4) Wt 91.3 kg (201 lb 4.5 oz) SpO2 97% BMI 34.55 kg/m2 PHYSICAL EXAMINATION: General appearance: Well appearing, alert, in no acute distress, well-hydrated, well nourished., Morbidly obese Skin: Skin color, texture, turgor normal, no suspicious rashes or lesions Head: Normocephalic, no masses, lesions, tenderness or abnormalities Eyes: Anicteric sclera. Pupils are equally round and reactive to light. Extraocular movements are intact. Lungs: Lungs clear to auscultation. No wheezing, rhonchi, rales Heart: RRR without murmur, gallop, or rubs. No ectopy Abdomen: Normal abdominal exam, Abdomen soft, non-tender. Bowel sounds normal. No masses, organomegaly Extremities: No deformities, edema, skin discoloration, clubbing or cyanosis. Good capillary refill. Musculoskeletal: No joint swelling, deformity, or tenderness Peripheral pulses: Normal Neuro: Gait normal. Reflexes normal and symmetric. Sensation grossly intact. Patient Condition @ Discharge: Good Discharge Disposition: Home with Homecare Nurse Discharge Medications: Current Discharge Medication List CONTINUE these medications which have CHANGED metoprolol tartrate (short acting) (LOPRESSOR) 12.5 mg Take 12.5 mg by mouth twice daily. Qty: 30 tablet Refills: 0 CONTINUE these medications which have NOT CHANGED ASCORBIC ACID (VITAMIN C ORAL) 1 tablet Take 1 tablet by mouth twice daily. metOLAzone (ZAROXOLYN) 2.5 mg Take 2.5 mg by mouth once daily. Qty: 30 tablet Refills: 0 Associated Diagnoses:Heart failure with preserved ejection fraction (HCC); Lymphedema of both lower extremities !! warfarin (COUMADIN) 1 mg tablet TAKE ONE TABLET BY MOUTH ONCE DAILY OR DIRECTED WITH THE 3MG TABLETS Qty: 90 tablet Refills: 1 Comments: Please consider 90 day supplies to promote better adherence silver sulfADIAZINE (SILVADENE) 1 % cream Apply to leg wounds as directed. 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 aspirin, enteric coated (ASPIRIN, ENTERIC COATED) 81 mg Take 81 mg by mouth every evening. !! warfarin (COUMADIN) 1 mg Take 1 mg by mouth daily as directed. As of 12/19/17: patient is only using 3mg tablets taking 1 x 3 mg tablet every day of the week. !! warfarin (COUMADIN) 3 mg Take 3 mg by mouth daily as directed. As of 12/19/17: Patient takes 1 tablet (3mg) by mouth once daily every day of the week. lisinopril 2.5 mg Take 2.5 mg by mouth every evening. omeprazole (PriLOSEC) 20 mg Take 20 mg by mouth once daily. spironolactone (ALDACTONE) 25 mg Take 25 mg by mouth every evening. docusate sodium (COLACE) 100 mg Take 100 mg by mouth once daily as needed. therapeutic multivitamin w/ iron (THERAGRAN-M) 1 tablet Take 1 tablet by mouth once daily. ergocalciferol (vitamin D2) (DRISDOL) 50,000 Units Take 50,000 Units by mouth once each week. Qty: 4 capsule Refills: 2 Associated Diagnoses:Vitamin D deficiency levothyroxine (SYNTHROID) 100 mcg Take 100 mcg by mouth once daily. Take on empty stomach. For Thyroid. Qty: 30 tablet Refills: 11 gabapentin (NEURONTIN) 300 mg Take 300 mg by mouth twice daily. Qty: 180 capsule Refills: 1 furosemide (LASIX) 40 mg Take 40 mg by mouth twice daily. Qty: 180 tablet Refills: 1 COMPOUNDED PRESCRIPTION Calcium Alginate 4x4 Dressing, change daily Dx: Blister left leg with infection S80.822A, L08.9; Lymphedema I89.0. Wound dimensions: 4 x 3 cm Qty: 14 Each Refills: 0 Zinc Sulfate 220 mg Take 220 mg by mouth once daily. 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 - Potential duplicate medications found. Please discuss with provider. Future Appointments: PCP in 1-2 weeks Cardiology in 2-3 weeks Future Appointments Date Time Provider Department Center 01/06/2018 1:30 PM Corey [facility] 03/06/2018 2:20 PM Mani [facility] 03/13/2018 12[facility] Total Discharge time: 32 minutes. Signature: Kenya Wilson MD Date: December 21, 2017 Time: 3:58 PM CASE MANAGEM Observed: 12/21/2017 Status: COMPLETED Source: [facility] 3:53 PM CLINIC OTHER CAMPUS REPOSITORY HNO ID: [id number] Author: Ayanna Petersen (Rn) ELENA Garcia Service: Case Management Author Type: Registered Nurse Type: Care Mgt Progress Note Filed: 12/21/2017 4:08 PM Note Text: CARE MANAGEMENT DISCHARGE NOTE SERVICE DATE: 12/21/2017 SERVICE TIME: 3:53 PM LOS: 2 days Admission Date: 12/19/2017 DISCHARGE ARRANGEMENT (list agency and phone number) Home care Provider:Vasu DEVLNI [facility] Pt has Chronic 3L. CAREGIVER ASSESSMENT: Caregiver is ready, willing and able to meet the patient's needs as recommended by the inter-professional team? Yes Patient's transition needs and plan for meeting these needs: self care, daughter Does the patient have an acute stroke diagnosis, or has the patient had a stroke during this admission? No HANDOFF COMMUNICATION: bedside RN Tina Robin Devin (DIL )[phone] (M), ETA 7pm TRANSPORTATION ARRANGEMENTS: Car daughter in law (DIL) ADDITIONAL CONTACT RESOURCES: Discharge Information ED to Hosp-Ad[facility] ([facility] SIGNATURE: Ayanna Garcia RN PATIENT NAME: Rosa Beltran DATE: December 21, 2017 TIME: 3:53 PM PAGER/CONTACT #: [phone] ALLIED HEALTH Observed: 12/21/2017 Status: COMPLETED Source: [facility] 2:45 PM CLINIC OTHER CAMPUS REPOSITORY HNO ID: [id number] Author: Slick De Leon (Chaplain) Service: Spiritual Care Author Type: Manager Reimbursement Type: Allied Health Filed: 12/21/2017 4:13 PM Note Text: SPIRITUALCARE Spiritual Care Visit- Brief Note Name: Rosa Beltran Date: December 21, 2017 Notes: Per referral, I met with Ms. Beltran at the bedside. Introduced myself and my role. Grief counseling provided as her son recently . She was tearful throughout the visit and is concerned for her future situation as she lived with this son who took care of her finances and helped with other daily activities. I will follow up again as able/requested. For emergency needs please dial 0 to page the supervisor burling and joining senior pensions administrator. Manager Reimbursement Signature: Chaplain Lula To contact the Spiritual Care Department: Please call [phone] or Page the On-Call Manager Reimbursement at pager [phone] Thank you for the opportunity to be of service. This is an electronically created document. IF PRINTED, PLEASE DO NOT REMOVE FROM THE CHART OR MODIFY PRINTED COPY. CASE MANAGEM Observed: 12/21/2017 Status: COMPLETED Source: [facility] 2:42 PM [facility] OTHER CAMPUS REPOSITORY HNO ID: [id number] Author: Ayanna Petersen (Rn) ELENA Garcia Service: Case Management Author Type: Registered Nurse Type: Care Mgt Progress Note Filed: 12/21/2017 2:44 PM Note Text: CARE MANAGEMENT PROGRESS NOTE SERVICE DATE: 12/21/2017 SERVICE TIME: 2:43 PM LOS: 2 days EMR reviewed. New 3.5L n/c with baseline 3L. Hardy [facility] Accepted, NEED F2F. From Home Alone; her hzuzhjcd-dw-efi lives in the unit above her ; xtljtfsz-qv-sto to transport. SIGNATURE: Ayanna Garcia RN PATIENT NAME: Rosa Beltran DATE: December 21, 2017 TIME: 2:43 PM PAGER/CONTACT #:[phone] PT ED Observed: 12/21/2017 Status: COMPLETED Source: [facility] 1:08 PM [facility] REPOSITORY HNO ID: [id number] Author: Alisa Beltre (Pharmacist) Service: Pharmacy Author Type: Pharmacist Type: Patient Education Filed: 12/21/2017 3:14 PM Note Text: Heart Failure Education Note Patient Name:Rolo Beltran Service Date: 12/21/2017 Service Time: 1:09 PM Heart Failure Education Provided: Brief overview of heart failure and non-pharmacologic therapy options. ACEI/ARB indication for Heart Failure/AMI Core Measures Review/Screening: LVEF = 60% from echocardiogram on 01/07/17. ANKIT-I/ARB: Yes, Patient is on ANKIT-I: Lisinopril Aspirin indication: Yes, Patient is on Aspirin Beta-Louann indication: Yes, patient is on: metoprolol tartrate Medication Education Provided: 1. Reason for taking medications and treatment goals. 2. Benefits of medication therapy. 3. How medications work. 4. Necessary laboratory monitoring. 5. When to take medications and what to do is a dose is missed. 6. Drug interactions (Rx, OTC, herbal) and importance of notifying healthcare provider with any medication changes. 7. Potential duration of therapy. 8. Potential side effects of medications. 9. Use of control measures if applicable. 10. Importance of regularly filling prescriptions and taking medications. 11. Proper storage of medications. Patient was given opportunity to ask questions and receive answers. Current Inpatient Medications: Current hospital medications: metoprolol tartrate (short acting) 25 mg tab(s) (LOPRESSOR) 25 mg ORAL BID warfarin 4 mg tab(s) (COUMADIN) 4 mg ORAL DAILY - WARFARIN gabapentin 300 mg cap(s) (NEURONTIN) 300 mg ORAL BID lisinopril 2.5 mg tab(s) (ZESTRIL, PRINIVIL) 2.5 mg ORAL DAILY aspirin, enteric coated 81 mg tab(s) (ASPIRIN, ENTERIC COATED) 81 mg ORAL DAILY spironolactone 25 mg tab(s) (ALDACTONE) 25 mg ORAL DAILY pantoprazole DR 20 mg tab(s) (PROTONIX) 20 mg ORAL DAILY metOLAzone 2.5 mg tab(s) (ZAROXOLYN) 2.5 mg ORAL DAILY levothyroxine 100 mcg tab(s) (SYNTHROID) 100 mcg ORAL DAILY furosemide 40 mg injection (LASIX) 40 mg INTRAVENOUS q 12 H 6a/6p 0.9% NaCl 3-5 mL 3-5 mL INTRAVENOUS q 12 H acetaminophen 650 mg tab(s) (TYLENOL) 650 mg ORAL q 6 H PRN READINESS TO LEARN COGNITIVE ABILITY: Alert and oriented MOTIVATION TO LEARN: Interested FAMILY SUPPORT: Unable to assess - Family not present INSTRUCTION PROVIDED TO: Patient PATIENT LEARNS BEST BY: Unable to Assess FACTORS AFFECTING LEARNING: None PHYSICAL LIMITATIONS AFFECTING LEARNING: None LEARNING RESPONSE DIAGNOSIS: Heart Failure PATIENT/FAMILY RESPONSE: Verbalizes understanding of: The signs and symptoms of a worsening condition that warrant a call to the physician. The correct actions to take to manage symptoms associated with his/her disease/illness. The physical restrictions and recommendations after discharge from the hospital. Accurate knowledge of prescribed medication prior to discharge. The side effects associated with the medication that warrant a call to the physician. Diet / weight monitoring METHOD OF INSTRUCTION: Written instruction - handouts Verbal instruction FOLLOW-UP PLAN: Complete - No need for follow-up INSTRUCTIONAL AIDS USED: Your Guide to Managing Heart Failure SUPPLEMENTAL MATERIAL PROVIDED: None FURTHER RECOMMENDATIONS (IF ANY): n/a SIGNATURE: Norma Moore (Claims Adjuster Supervisor) Preceptor Addendum: This case has been reviewed and discussed with the student accounts coordinator. I agree with the assessment/plan described by the student. Changes and additions to the details in the note are indicated by italics and . Alisa Beltre, Pharmacist NURSING PROG Observed: 12/21/2017 Status: COMPLETED Source: [facility] 12:34 PM [facility] REPOSITORY HNO ID: [id number] Author: Anat (Rn) ELENA Cheung Service: (none) Author Type: Registered Nurse Type: Nursing Progress Note Filed: 12/21/2017 7:52 PM Note Text: Nursing Progress Note Patient Name: Rosa Beltran Patient Location: [facility]0260/[id number] Daily Note:1145: assisted pt back to bed from [facility]. O2 intact at 3L/NC. denies pain at present. Waiting for lunch to be delivered; no further needs at this time. 1600: Dr. Wilson in to see pt; ok for discharge. 1630: pt informed about D/C; became very anxious. Support given. 1930: pt's DIL here to take pt home; instructions reviewed with pt and family. Rx for metoprolol given. Oxygen intact via pt's personal portable tank. This note was completed by: Anat Cheung RN ALLIED HEALTH Observed: 12/21/2017 Status: COMPLETED Source: [facility] 11:38 AM [facility] REPOSITORY HNO ID: [id number] Author: Maile Bray Service: (none) Author Type: (none) Type: Allied Health Filed: 12/21/2017 11:42 AM Note Text: HEALING SERVICES THERAPY NOTE SERVICE DATE: 12/21/2017 The order placed is really for grief support and will be assessed first by our Manager Reimbursement for grief counseling - I have placed an order for spiritual care. SIGNATURE: Maile Bray PATIENT NAME: Rosa Beltran DATE: December 21, 2017 TIME: 11:38 AM PAGER/CONTACT #: [phone] PROTIME Collected: 12/21/2017 Status: F Source: [facility] 4:55 AM CLINIC OTHER CAMPUS REPOSITORY TYPE CODE TESTS RESULT OUT OF RANGE REFERENCE UNITS LAB PSEC 9.7-13.0 sec High PT Sec 28.8 LAB INR 0.9-1.3 High PT INR 2.9 Result Comment: Vitamin K Antagonist (VKA) Therapeutic Range: INR 2 to 3 (Target INR of 2.5) Note: For patients treated with VKA drugs, such as warfarin, the [place] [employer] 2012 Guideline recommends a therapeutic INR range of 2 to 3 (target INR of 2.5). This recommendation includes high-risk patients with antiphospholipid syndrome with previous arterial or venous thromboembolism, current-generation mechanical or bioprosthetic aortic heart valve replacement. Note: Patients with mechanical aortic valve replacement and additional risk factors for thromboembolic events (atrial fibrillation, previous thromboembolism, LV dysfunction, hypercoagulable conditions) or an older generation mechanical AVR (i.e., ball in-Cage) or any mechanical MVR should have a INR therapeutic range of 2.5 to 3.5 (target INR of 3). Shweta GH, et al. Chest 2012, 141:7S-47S Genevieve RA, et al. [facility] 2017, 70: 252-289 Performed By: #### PT, CMP #### [facility] [address] [place] [address] COMP METABOLIC PANEL Collected: 12/21/2017 Status: F Source: [facility] 4:55 AM [facility] OTHER [place] REPOSITORY TYPE CODE TESTS RESULT OUT OF REFERENCE UNITS RANGE LAB TP 6.3-8.0 g/dL Protein, Total 7.4 LAB ALB 3.9-4.9 g/dL Low Albumin 3.0 LAB CA 8.5-10.2 mg/dL Low Calcium, Total 8.2 LAB TBIL 0.2-1.3 mg/dL Bilirubin, Total 0.6 LAB ALKP 32-117 U/L Alkaline Phosphatase 68 LAB AST 13-35 U/L AST 17 LAB GLU 74-99 mg/dL Glucose High 100 Result Comment: The [place] Diabetes Association (ADA) provides guidance for cutoff values for fasting glucose and random glucose. The ADA defines fasting as no caloric intake for at least 8 hours. Fas ting plasma glucose results between 100 to 125 mg/dL indicate increased risk for diabetes (prediabetes). Fasting plasma glucose results greater than or equal to 126 mg/dL meet the criteria for diagnosis of diabetes. In the absence of unequivocal hyperglycemia, results should be confirmed by repeat testing. In a patient with classic symptoms of hyperglycemia or hyperglycemic crisis, random plasma glucose results greater than or equal to 200 mg/dL meet the criteria for diagnosis of diabetes. Reference: Standards of Medical Care in Diabetes 2016, [place] [employer] Association. Diabetes Care. 2016.39(Suppl 1). LAB BUN 7-21 mg/dL BUN High 35 LAB CRET 0.58-0.96 mg/dL Creatinine High 1.03 LAB NA 136-144 mmol/L Sodium 136 LAB K 3.7-5.1 mmol/L Potassium 3.8 LAB CL 97-105 mmol/L Low Chloride 95 LAB CO2 22-30 mmol/L CO2 High 34 LAB AGAP 9-18 mmol/L Low Anion Gap 7 LAB ALT 7-38 U/L ALT 8 LAB GFRAA eGFR- Amer. >60 LAB GFRNAA . eGFR-All Other Races 51 Result Comment: eGFR (Estimated GFR) Units of measure: mL/min/1.73 meters squared eGFR is derived from the reexpressed MDRD Study equation using the following parameters: serum creatinine, age, gender and race. The creatinine assay has been calibrated to be traceable to IDMS. An eGFR <60 mL/min/1.73m2 for >3 months is consistent with chronic kidney disease. Refer to KDOQI guidelines for clinical interpretation. In patients with unstable renal function, e.g. those with acute kidney injury, the eGFR may not accurately reflect actual GFR. Performed By: #### PT, CMP #### [facility] [address] [place] [address] CBC Collected: 12/21/2017 Status: F Source: [facility] 4:55 AM CLINIC OTHER CAMPUS REPOSITORY TYPE CODE TESTS RESULT OUT OF REFERENCE UNITS RANGE LAB WBC 3.70-11.00 k/uL WBC 4.85 LAB RBC 3.90-5.20 m/uL Low RBC 3.73 LAB HGB 11.5-15.5 g/dL Low Hemoglobin 10.5 LAB HCT 36.0-46.0 % Low Hematocrit 35.1 LAB MCV 80.0-100.0 fL MCV 94.1 LAB MCH 26.0-34.0 pG MCH 28.2 LAB MCHC 30.5-36.0 g/dL Low MCHC 29.9 LAB RDWCV 11.5-15.0 % RDW-CV High 16.3 LAB PLTCT 150-400 k/uL Low Platelet Count 138 LAB MPV 9.0-12.7 fL MPV 11.6 Performed By: #### CBC, MG1 #### [facility] [address] [facility] [phone] MAGNESIUM Collected: 12/21/2017 Status: F Source: [facility] 4:55 AM [facility] REPOSITORY TYPE CODE TESTS RESULT OUT OF REFERENCE UNITS RANGE LAB MG 1.7-2.3 mg/dL Magnesium 1.7 Performed By: #### CBC, MG1 #### [facility] [address] [facility] [phone] ALLIED HEALTH Observed: 12/20/2017 Status: COMPLETED Source: [facility] 5:00 PM [facility] REPOSITORY HNO ID: [id number] Author: Svetlana ParksRn) ELENA Gonzalez Service: Ostomy Author Type: Registered Nurse Type: Allied Health Filed: 12/20/2017 7:06 PM Note Text: Wound Care Consult Team PATIENT NAME: Rosa Beltran is a 82 year old female with the admitting diagnosis of CHF exacerbation. ALLERGIES No Known Allergies REASON FOR CONSULT: evaluate and treat bilateral lower legs. WCCT agrees with Pressure Ulcer documentation by Physician: Not Applicable WCCT agrees with Pressure Ulcer documentation by Nurse: Not Applicable Add Pressure Ulcer Sites: (Site, Stage, Status (POA vs Acquired) 1) 2) 3) 4) Assessment Pt with know history of venous insufficiency and lymphedema. Patient is followed at the [facility] for management. Patient states [facility] changes her dressings 2-3 times a week. Bilateral Profore dressings were removed. No wounds to the left lower leg noted. Right lateral distal lower leg with ulcer measuring 2.5 2.8 x 0.4 cm with pink base covered with translucent film (?bioburden) No erythema, no complaints of pain when care provided. + hemosiderin staining of lower legs and large irregular scar to right medial lower leg patient states from previous fracture. Active Recommendations: Bilateral lower legs washed and rinsed. Sween 24 cream applied to intact skin. Right leg ulcer cleansed with NS, wound base covered with Aquacel and secured with Allevyn foam dressing. Ankles padded circumferentially with ABDs and secured with kerlex. 4 ankit wrap applied form base of toes to above ankle and 6 ankit wrap applied form above ankle to below knees. Patient instructed to notify staff if she experiences pain or new numbness/tingling in her feet for removal. Patient instructed upon discharge to resume wound care as provided thru the [facility]. PAtient acknowledges instructions. Maintain all appropriate Nursing Pressure Ulcer Prevention Interventions as needed per [place] Risk Assessment. My findings and recommendations for wound care will be communicated through the shared Medical record. Wound Care Consult Team recommendations discussed with: Bedside RN aware of assessment and local care provided who will obtain necessary orders from MD, Resident or LIP. Follow Up:Wound Care Consult will follow as needed. Units of Service (15 min per unit): 60 min Electronically Signed By: Svetlana Gonzalez RN CWOCN from the Wound Care Consult Team PAGER: DATE: December 20, 2017 TIME: 6:58 PM Thank you for including me in the care of this patient and please feel free to re-consult me if necessary. PROGRESS Observed: 12/20/2017 Status: COMPLETED Source: [facility] 4:29 PM CLINIC OTHER CAMPUS REPOSITORY [facility] ID: [id number] Author: Kenya Wilson Service: Hospital Medicine Author Type: Physician Type: Progress Notes Filed: 12/21/2017 12:39 AM Note Text: HOSPITAL MEDICINE PROGRESS NOTE Name: Rosa Beltran SERVICE DATE: 12/20/2017 SERVICE TIME: 4:29 PM LOCATION / ROOM: [facility]2N-[id number] Hospital Medicine/Primary Attending: Kenya Wilson MD NIGHT COVERAGE BETWEEN 5.30P-7.30A Page [id number] ASSESSMENT AND PLAN Active Hospital Problems Diagnosis - Heart failure with preserved ejection fraction (HCC) SOB, increased BLE, weight up by 20 lbs this month. On home 02 2L. ECHO 04/2017: EF 65%, biatrial enlargement, mild MVI, moderated TVI, mild-mod PVI, Pulm HTN 54 mmHg. Fluid restrict, Strict IANDO, daily weights. Lasix 40mg BID IVP. - Chronic atrial fibrillation (HCC) On coumadin. Rate controlled and on metoprolol. Tele. Bradycardia - decreased Metoprolol - hold if less than 60 ? To increase aldactone 25 mg BID - Lymphedema of both lower extremities Wound/skin consult. Right lateral distal lower leg with ulcer measuring 2.5 2.8 x 0.4 cm with pink base covered with translucent film Bilateral leg wrap. - Hypertension Mildly elevated. Continue home meds and monitor. - Acquired hypothyroidism Continue synthroid. - Acute exacerbation of CHF (congestive heart failure) Hx of nml EF. SUBJECTIVE INTERVAL HPI: Feels some better better, no fever, chills, cp nor palpitations. No events overnight. Some better. MEDICATIONS: Reviewed Current Facility-Administered Medications: metoprolol tartrate (short acting) 25 mg tab(s) (LOPRESSOR) 25 mg ORAL BID Kenya Stevenson) Thuestad 25 mg at 12/20/172037 warfarin 4 mg tab(s) (COUMADIN) 4 mg ORAL DAILY - WARFARIN Justin Dangelo (Pa) 4 mg at 12/20/17 185 gabapentin 300 mg cap(s) (NEURONTIN) 300 mg ORAL BID Justin Dangelo (Pa) 300 mg at 12/20/172037 lisinopril 2.5 mg tab(s) (ZESTRIL, PRINIVIL) 2.5 mg ORAL DAILY Niraj Saeed 2.5 mg at 12/20/17 1012 aspirin, enteric coated 81 mg tab(s) (ASPIRIN, ENTERIC COATED) 81 mg ORAL DAILY Justin Dangelo (Pa) 81 mg at 12/20/17 1012 spironolactone 25 mg tab(s) (ALDACTONE) 25 mg ORAL DAILY Niraj Saeed 25 mg at 12/20/[address] 20 mg tab(s) (PROTONIX) 20 mg ORAL DAILY Justin Dangelo (Pa) 20 mg at 12/20/17 0612 metOLAzone 2.5 mg tab(s) (ZAROXOLYN) 2.5 mg ORAL DAILY Justin (Pa) Antolin 2.5 mg at 12/20/17 1012 levothyroxine 100 mcg tab(s) (SYNTHROID) 100 mcg ORAL DAILY Justin (Pa) Antolin 100 mcg at 12/20/17 0612 furosemide 40 mg injection (LASIX) 40 mg INTRAVENOUS q 12 H 6a/6p Justin (Pa) Antolin 40 mg at 12/20/17 1854 0.9% NaCl 3-5 mL 3-5 mL INTRAVENOUS q 12 H Justin (Pa) Antolin 5 mL at 12/20/172037 acetaminophen 650 mg tab(s) (TYLENOL) 650 mg ORAL q 6 H PRN Justin (Pa) Antolin 650 mg at 12/20/172037 OBJECTIVE PHYSICAL EXAM: BP 123/84 Pulse 64 Temp (Src) 97.9 (Oral) Resp 18 Ht 5' 4 (1.63m) Wt 204 lb 1.6 oz (92.6kg) SpO2 98% BMI 35.02 kg/(m2). GENERAL: Alert, no distress, cooperative. Morbid obesity SKIN: Skin color, texture, turgor normal. No rashes or lesions. EYES: PERRLA, EOMI OROPHARYNX: Lips, mucosa, and tongue normal. Teeth and gums normal. Oropharynx normal. NECK: No jugulovenous distention, No carotid bruits, Carotid pulse normal contour, Supple LUNGS: Lungs clear to auscultation, Good diaphragmatic excursion CARDIAC: Normal S1 and S2; no rubs, murmurs, or gallops ABDOMEN: Abdomen soft, non-tender, BS normal, No masses or organomegaly EXTREMITIES: Extremities normal, no deformities, clubbing or skin discoloration. Good capillary refill., No ulcers. Lymphoedema bilaterally. NEURO: Reflexes normal and symmetric. Sensation grossly intact, Cranial nerves II-XII intact PULSES: 2+ radial, 2+ carotid DATA: Diagnostic tests reviewed for today's visit: Most recent labs CBC: WBC 5.80 12/20/2017 Hemoglobin 10.5 12/20/2017 Hematocrit 35.4 12/20/2017 Platelet Count 150 12/20/2017 CMP: Sodium 138 12/20/2017 Potassium 3.9 12/20/2017 BUN 33 12/20/2017 Creatinine 1.03 12/20/2017 Glucose 86 12/20/2017 Chloride 98 12/20/2017 CO2 32 12/20/2017 VTE Prophylaxis: Patient is already anti-coagulated. Disposition: Home with HHC vs Extended Care Facility Plan of care discussed with: Patient SIGNATURE: Kenya Wilson MD DATE: December 21, 2017 TIME: 12:29 AM NURSING PROG Observed: 12/20/2017 Status: COMPLETED Source: [facility] 4:00 PM [facility] REPOSITORY HNO ID: [id number] Author: Jacqueline ParksRn) ELENA Martin Service: Nursing Author Type: Registered Nurse Type: Nursing Progress Note Filed: 12/20/2017 7:12 PM Note Text: Nursing Progress Note Patient Name: Rosa Beltran Patient Location: [facility]0260/[id number] Daily Note: Phuc Gonzalez RN in to change dressings. Assistance provided. Venipuncture x 1 with #22 in rt FA that flushes well and has good blood return. This note was completed by: Jacqueline Martin RN NURSING PROG Observed: 12/20/2017 Status: COMPLETED Source: [facility] 1:20 PM [facility] REPOSITORY HNO ID: [id number] Author: Tina ParksRn) ELENA Cancino Service: Nursing Author Type: Registered Nurse Type: Nursing Progress Note Filed: 12/20/2017 1:32 PM Note Text: Nursing Progress Note Patient Name: Rosa Beltran Patient Location: [facility]2N-[id number] Daily Note: Noted heart rate afib/flutter in the mid 40's on tele. Dr. Wilson on unit and updated. Pt takes metoprolol 50 mg Q12H, will review when he rounds on pt This note was completed by: Tina Cancino RN PT ED Observed: 12/20/2017 Status: COMPLETED Source: [facility] 1:12 PM CLINIC OTHER CAMPUS REPOSITORY O ID: [id number] Author: Jolynn Lowe (Pharmacist) Service: Pharmacy Author Type: Pharmacist Type: Patient Education Filed: 12/20/2017 2:10 PM Note Text: PHARMACY WARFARIN EDUCATION Patient Name: Rosa Beltran Account #: Data Unavailable Admission Date: 12/19/2017 11:08 AM Date of Contact: December 20, 2017 Time of Contact: 1:12 PM Patient new to warfarin? No: Previous (home) dosage: 3mg daily (15 years) Outpatient follow-up plan: Follow-up with Physician: name: Paty Indication for warfarin: atrial fibrillation Target INR range: 2.0 - 3.0 (Target 2.5) Patient received full warfarin education. Initial patient education included: * Reason for taking warfarin * How warfarin works * What the INR test is, frequency of testing, and the importance of monitoring warfarin with scheduled PT/INR blood draws or finger sticks * Information about plans to monitor warfarin post-discharge was reviewed * When to take warfarin and what to do if a dose is missed * Identifying tablet(s) and to notify the doctor/anticoagulation clinic if there is a change in tablet color, shape, or markings * Drug interactions (Rx, OTC, herbal) and importance of notifying the doctor/anticoagulation clinic with any changes. * Do not take or discontinue any medication or over the counter medication except on the advice of the physician or pharmacist because certain medications can affect the PT/INR. * Potential duration of therapy * Signs/symptoms of bleeding and what to do if they occur because warfarin increases the risk of bleeding * Precautionary measures to decrease trauma/bleeding * Signs/symptoms of thrombosis and what to do if they occur * Need to limit or avoid EtOH consumption * Dietary considerations discussing that a ?consistent amount? of foods with vitamin K rather than avoidances should be advised and to avoid major changes in dietary habits, or notify health professional before changing habits because diet can affect the PT/INR * Carrying identification * Importance of notifying healthcare provider and [facility] when hospitalizations occur and when another healthcare provider has asked them to stop/hold warfarin before any procedure * Importance of notifying all healthcare providers they are taking warfarin * Use of control measures if applicable * The importance of taking warfarin as instructed and the potential ramifications of non- compliance were explained to the patient. The patient was provided ?Understanding the Anticoagulant Medication Warfarin? education booklet which includes the following : compliance Issues, dietary advice, follow-up with physician, follow- up monitoring, potential adverse drug reactions and interactions. READINESS TO LEARN COGNITIVE ABILITY: Alert and oriented MOTIVATION TO LEARN: Interested FAMILY SUPPORT: Unable to assess - Family not present INSTRUCTION PROVIDED TO: Patient PATIENT LEARNS BEST BY: Unable to Assess FACTORS AFFECTING LEARNING: None PHYSICAL LIMITATIONS AFFECTING LEARNING: None LEARNING RESPONSE DIAGNOSIS: SEE INDICATION(S) ABOVE PATIENT/FAMILY RESPONSE: Verbalizes understanding of: The signs and symptoms of a worsening condition that warrant a call to the physician. Accurate knowledge of prescribed medication prior to discharge. The side effects associated with the medication that warrant a call to the physician. Post discharge follow up instruction METHOD OF INSTRUCTION: Written instruction - handouts Verbal instruction SUPPLEMENTAL MATERIAL PROVIDED: Warfarin booklet: FURTHER RECOMMENDATIONS (if any) n/a EVIDENCE OF LEARNING Outcomes met: Describes/able to restate information Outcomes not met: N/A Outpatient Follow-up: Primary Physician Norma Moore (Claims Adjuster Supervisor) Preceptor Addendum: This case has been reviewed and discussed with the student accounts coordinator. I agree with the assessment/plan described by the student. Changes and additions to the details in the note are indicated by italics and . Jolynn Lowe, Pharmacist CASE MANAGEM Observed: 12/20/2017 Status: COMPLETED Source: [facility] 12:23 PM [facility] OTHER CAMPUS REPOSITORY [facility] ID: [id number] Author: Ayanna Petersen (Rn) ELENA Garcia Service: Case Management Author Type: Registered Nurse Type: Care Mgt Progress Note Filed: 12/20/2017 12:29 PM Note Text: CARE MANAGEMENT PROGRESS NOTE SERVICE DATE: 12/20/2017 SERVICE TIME: 12:23 PM LOS: 1 day EMR reviewed. Met with Rosa to review her dc plan. Current [facility] closing . Chose 1- [facility] ( ref sent) 2- [facility]. NEED F2F. From Home Alone; her zytesevw-cv-bok lives in the unit above her ; afrhjurb-eu-tex to transport. SIGNATURE: Ayanna Garcia RN PATIENT NAME: Rosa Beltran DATE: December 20, 2017 TIME: 12:23 PM PAGER/CONTACT #: [phone] PROTIME Collected: 12/20/2017 Status: F Source: VICTOR 10:07 AM [facility] OTHER CAMPUS REPOSITORY TYPE CODE TESTS RESULT OUT OF RANGE REFERENCE UNITS LAB PSEC 9.7-13.0 sec High PT Sec 23.7 LAB INR 0.9-1.3 High PT INR 2.4 Result Comment: Vitamin K Antagonist (VKA) Therapeutic Range: INR 2 to 3 (Target INR of 2.5) Note: For patients treated with VKA drugs, such as warfarin, the [place] [employer] 2012 Guideline recommends a therapeutic INR range of 2 to 3 (target INR of 2.5). This recommendation includes high-risk patients with antiphospholipid syndrome with previous arterial or venous thromboembolism, current-generation mechanical or bioprosthetic aortic heart valve replacement. Note: Patients with mechanical aortic valve replacement and additional risk factors for thromboembolic events (atrial fibrillation, previous thromboembolism, LV dysfunction, hypercoagulable conditions) or an older generation mechanical AVR (i.e., ball in-Cage) or any mechanical MVR should have a INR therapeutic range of 2.5 to 3.5 (target INR of 3). Guillermott GH, et al. Chest 2012, 141:7S-47S Genevieve RA, et al. [facility] 2017, 70: 252-289 Performed By: #### PT #### [facility] [address] [place] [address] CBC Collected: 12/20/2017 Status: F Source: VICTOR 8:50 AM [facility] OTHER CAMPUS REPOSITORY TYPE CODE TESTS RESULT OUT OF REFERENCE UNITS RANGE LAB WBC 3.70-11.00 k/uL WBC 5.80 LAB RBC 3.90-5.20 m/uL Low RBC 3.75 LAB HGB 11.5-15.5 g/dL Low Hemoglobin 10.5 LAB HCT 36.0-46.0 % Low Hematocrit 35.4 LAB MCV 80.0-100.0 fL MCV 94.4 LAB MCH 26.0-34.0 pG MCH 28.0 LAB MCHC 30.5-36.0 g/dL Low MCHC 29.7 LAB RDWCV 11.5-15.0 % RDW-CV High 16.5 LAB PLTCT 150-400 k/uL Platelet Count 150 LAB MPV 9.0-12.7 fL MPV 11.5 Performed By: #### CBC, BMP, MG1 #### [facility] [address] [facility] [phone] BASIC METABOLIC PANL Collected: 12/20/2017 Status: F Source: VICTOR 8:50 AM [facility]IN[facility] OTHER CAMPUS REPOSITORY TYPE CODE TESTS RESULT OUT OF REFERENCE UNITS RANGE LAB GLU 74-99 mg/dL Glucose 86 Result Comment: The [place] Diabetes Association (ADA) provides guidance for cutoff values for fasting glucose and random glucose. The ADA defines fasting as no caloric intake for at least 8 hours. Fas ting plasma glucose results between 100 to 125 mg/dL indicate increased risk for diabetes (prediabetes). Fasting plasma glucose results greater than or equal to 126 mg/dL meet the criteria for diagnosis of diabetes. In the absence of unequivocal hyperglycemia, results should be confirmed by repeat testing. In a patient with classic symptoms of hyperglycemia or hyperglycemic crisis, random plasma glucose results greater than or equal to 200 mg/dL meet the criteria for diagnosis of diabetes. Reference: Standards of Medical Care in Diabetes 2016, [place] Diabetes Association. Diabetes Care. 2016.39(Suppl 1). LAB BUN 7-21 mg/dL BUN High 33 LAB CRET 0.58-0.96 mg/dL Creatinine High 1.03 LAB NA 136-144 mmol/L Sodium 138 LAB K 3.7-5.1 mmol/L Potassium 3.9 LAB CL 97-105 mmol/L Chloride 98 LAB CO2 22-30 mmol/L CO2 High 32 LAB AGAP 9-18 mmol/L Low Anion Gap 8 LAB CA 8.5-10.2 mg/dL Low Calcium, Total 8.3 LAB GFRAA eGFR- Amer. >60 LAB GFRNAA . eGFR-All Other Races 51 Result Comment: eGFR (Estimated GFR) Units of measure: mL/min/1.73 meters squared eGFR is derived from the reexpressed MDRD Study equation using the following parameters: serum creatinine, age, gender and race. The creatinine assay has been calibrated to be traceable to IDMS. An eGFR <60 mL/min/1.73m2 for >3 months is consistent with chronic kidney disease. Refer to KDOQI guidelines for clinical interpretation. In patients with unstable renal function, e.g. those with acute kidney injury, the eGFR may not accurately reflect actual GFR. Performed By: #### CBC, BMP, MG1 #### [facility] [address] [place] [address] MAGNESIUM Collected: 12/20/2017 Status: F Source: VICTOR 8:50 AM CLINIC OTHER CAMPUS REPOSITORY TYPE CODE TESTS RESULT OUT OF REFERENCE UNITS RANGE LAB MG 1.7-2.3 mg/dL Magnesium 1.7 Performed By: #### CBC, BMP, MG1 #### [facility] [address] [place] [address] TROPONIN T Collected: 12/20/2017 Status: F Source: [facility] 3:30 AM CLINIC OTHER CAMPUS REPOSITORY TYPE CODE TESTS RESULT OUT OF REFERENCE UNITS RANGE LAB TROPT 0.000-0.029 ng/mL Troponin T <0.010 Performed By: #### YOLANDE #### [facility] [address] [place] [address] URINALYSIS Collected: 12/20/2017 Status: F Source: VICTOR 3:14 AM [facility] OTHER CAMPUS REPOSITORY TYPE CODE TESTS RESULT OUT OF RANGE REFERENCE UNITS LAB UCOL Yellow Color Abnormal Straw Alert LAB [facility] Clear Clarity Clear LAB UGLUC Negative mg/dL Glucose, Urine Negative LAB UBIL Negative Bilirubin, Urine Negative LAB UKET Negative Ketones, Urine Negative LAB USPG 1.001-1.029 Specific [place], Ur 1.010 LAB UHGB Negative Abnormal Hemoglobin/Blood, Moderate Alert Ur LAB UPH 5.0-8.0 pH 6.0 LAB UPROT Negative mg/dL Protein, Urine Negative LAB UUROB 0.2-1.0 Urobilinogen 0.2 LAB UNITR Negative Nitrites Negative LAB ULKEST Negative Leukest Negative Performed By: #### UA, UAMIC #### [facility] [address] [place] [address] URINE MICROSCOPIC (FOR Collected: 12/20/2017 Status: F Source: VICTOR LAB USE ONLY) 3:14 AM [facility] OTHER CAMPUS REPOSITORY TYPE CODE TESTS RESULT OUT OF REFERENCE UNITS RANGE LAB UWBC 0-5 /HPF WBC 0-5 LAB URBC 0-3 /HPF RBC 0-3 LAB UCAST 0 /LPF Cast SEE COMMENT Result Comment: 0 Performed By: #### UA, UAMIC #### [facility] [address] [place] [address] TROPONIN T Collected: 12/19/2017 Status: F Source: VICTOR 8:44 PM CLINIC OTHER CAMPUS REPOSITORY TYPE CODE TESTS RESULT OUT OF REFERENCE UNITS RANGE LAB TROPT 0.000-0.029 ng/mL Troponin T <0.010 Performed By: #### YOLANDE #### [facility] [address] [facility] [phone] ED PROV NOTE Observed: 12/19/2017 Status: COMPLETED Source: VICTOR 8:00 PM [facility]INIC OTHER CAMPUS REPOSITORY [facility] ID: [id number] Author: Tia Pardo DO Service: (none) Author Type: Physician Type: ED Provider Notes Filed: 12/19/2017 11:14 PM Note Text: ED Provider Note Patient Name: Rosa Beltran SERVICE DATE: 12/19/17 History Patient presents with: Shortness of Breath: sent by wound clinic for shortness of breath. HPI Comments: 82-year-old female presents emergency Department with complaints of worsening dyspnea, lower extremity swelling. States that she has a history of CHF and no center like 7-Up or swollen.. States her dyspnea been getting worse particularly when laying down. Denies any abdominal pain or distention. Denies any chest pain. States this feels typical for her CHF exacerbations. States that she was at the wound clinic they noticed that there was some blueness and discoloration to her lips and skin and) pulse ox her oxygenation was in the mid 80s. Oxygen was increased and patient's oxygen level here is 97% on 4 L nasal cannula. History provided by: Patient loan documentation specialist used: No PAST MEDICAL HISTORY Diagnosis Date - Acquired hypothyroidism - Acute respiratory failure with hypoxia (HCC) 09/30/2017 - Atrial fibrillation ([facility]) - CAD (coronary artery disease) Dr. Brenda Awan Hts, Promus element KIMMY LAD 11/20/2012, Stress test 04/2014 inferoapical reversible ischemia,small LVEF 48- 50%, LHC 12/2014 L main-normal, LAD widely patent, Cx diffuse mild luminal irregularities with 80%focal stenosis distal, RCA dominant with minimal luminal irregularities. 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 - TOTAL KNEE REPLACEMENT Left 2004 [facility] Gen. No family history on file. Social History Social History Main Topics - Smoking status: Passive Smoke Exposure - Never Smoker - Smokeless tobacco: Never Used Comment: smoked for 40 years - Alcohol use No - Drug use: No - Sexual activity: Not on file ALLERGIES No Known Allergies Review of Systems Constitutional: Negative. Negative for chills, fatigue and fever. HENT: Negative. Respiratory: Positive for chest tightness and shortness of breath. Negative for cough and wheezing. Cardiovascular: Positive for leg swelling. Negative for chest pain and palpitations. Gastrointestinal: Negative. Negative for abdominal pain, nausea and vomiting. Genitourinary: Negative. Musculoskeletal: Negative. Negative for back pain, myalgias and neck pain. Skin: Negative. Negative for rash and wound. Neurological: Negative. Negative for dizziness, syncope, weakness, light-headedness and headaches. Psychiatric/Behavioral: Negative. Physical Exam BP 159/95 Pulse 56 Temp (Src) 97.7 (Oral) Resp 16 Wt 225 lb (102.1kg) SpO2 96% Physical Exam Constitutional: She is oriented to person, place, and time. She appears well-developed and well-nourished. No distress. HENT: Head: Normocephalic and atraumatic. Eyes: EOM are normal. Pupils are equal, round, and reactive to light. Neck: Normal range of motion. No JVD present. Cardiovascular: Normal rate, regular rhythm and normal heart sounds. Pulmonary/Chest: Effort normal and breath sounds normal. No respiratory distress. She has no wheezes. Patient becomes dyspneic when speaking and off of oxygen. Respiratory distress or compromise airway Abdominal: Soft. Bowel sounds are normal. She exhibits no distension. There is no tenderness. Musculoskeletal: She exhibits edema. Significant edema to the lower extremities bilaterally right worse than left. Nontender to palpation along the calf. Neurological: She is alert and oriented to person, place, and time. No cranial nerve deficit. Coordination normal. Skin: Skin is warm. No rash noted. No erythema. Psychiatric: She has a normal mood and affect. Her behavior is normal. Judgment and thought content normal. Nursing note and vitals reviewed. Diagnostic Testing ED Labs Ordered and Reviewed CBC + DIFF - Abnormal; Notable for the following: Result Value Ref Range Hemoglobin 11.2 (*) 11.5 - 15.5 g/dL MCHC 29.9 (*) 30.5 - 36.0 g/dL RDW-CV 16.6 (*) 11.5 - 15.0 % All other components within normal limits COMP METABOLIC PANEL - Abnormal; Notable for the following: Protein, Total 8.3 (*) 6.3 - 8.0 g/dL Albumin 3.3 (*) 3.9 - 4.9 g/dL Calcium 8.3 (*) 8.5 - 10.2 mg/dL BUN 34 (*) 7 - 21 mg/dL Creatinine 0.98 (*) 0.58 - 0.96 mg/dL All other components within normal limits HIGH SENSITIVITY TROPONIN T - Abnormal; Notable for the following: YOLADNE High Sensitivity 27 (*) <12 ng/L All other components within normal limits HIGH SENSITIVITY TROPONIN T - Abnormal; Notable for the following: YOLANDE High Sensitivity 23 (*) <12 ng/L All other components within normal limits CK TOTAL AND CK-MB - Abnormal; Notable for the following: CK 41 (*) 42 - 196 U/L All other components within normal limits PROTHROMBIN TIME/PT - Abnormal; Notable for the following: PT Sec 23.6 (*) 9.7 - 13.0 sec PT INR 2.3 (*) 0.9 - 1.3 All other components within normal limits ACTIVATED PTT - Abnormal; Notable for the following: APTT 37.4 (*) 23.0 - 32.4 sec All other components within normal limits NT PRO BNP - Abnormal; Notable for the following: NT Pro BNP 4066 (*) <450 pg/mL All other components within normal limits CRITICAL CARE PROFILE VENOUS - Abnormal; Notable for the following: Oxyhemoglobin, Venous 17.5 (*) 60.0 - 85.0 % Bicarbonate, Venous 31.0 (*) 22.0 - 26.0 mmol/L pCO2, Venous 61.8 (*) 39.0 - 51.0 mmHg All other components within normal limits LIPASE BLD Procedures Medical Decision Making / ED Course ED Course Clinically and hemodynamically stable at discharge. Patient feels comfortable with admission plan and understands admission diagnoses. At this time patient has a history of chronic kidney disease as well as worsening CHF suspect patient will benefit greatly from having her fluids managed as well as to a lot of other sources of her dyspnea Encounter Diagnosis ICD-10-CM 1. Acute on chronic congestive heart failure, unspecified congestive heart failure type (HCC) I50.9 Plan The Patient was ADMITTED TO: Regular nursing floor. Condition at time of disposition: stable SIGNATURE: DAFNE Leiva (Pa) 12/19/172011 Attending Note I have personally performed a face to face assessment of the patient and have reviewed the PA/DADO OPERATOR note. My [place] findings include: History: The patient is an 82-year-old female history of CAD with stents, sleep apnea, rheumatoid arthritis, hypercholesterolemia, hypertension, GERD, gastric bypass, chronic atrial fibrillation, comes in today for reports of shortness of breath. Patient states she's been short of breath for the past few weeks. She's noticed increased leg edema. Patient states that she went to the wound care center for her legs to be wrapped today with a saw how short of breath she was a center here for evaluation. She states she's had some random sharp chest pains that last for a few seconds but then resolved. She denies nausea or diaphoresis. Denies recent illnesses. Exam: Patient sitting the cart in no acute distress. Heart is bradycardic but regular. Lungs are diminished throughout with rales in the bases. Abdomen is obese, soft, nontender, nondistended. Legs have 3-4+ pitting edema with some wounds that are weeping serous fluid. Assessment/Plan are patient's labs demonstrate mild dehydration with CHF. Patient will be admitted for diuresis. Other additions or changes: None Signature: Tia Pardo DO Date: 12/19/2017 Time: 1:54 PM Tia Pardo DO 12/19/17 2314 ED NOTE Observed: 12/19/2017 Status: COMPLETED Source: [facility] 7:39 PM [facility]IN[facility] OTHER CAMPUS REPOSITORY [facility] ID: [id number] Author: Madiha ParksRn) ELENA Joyce Service: (none) Author Type: Registered Nurse Type: ED Notes Filed: 12/19/2017 7:40 PM Note Text: Report given to Echo BARBOSA [address] [place] [address]. ED NOTE Observed: 12/19/2017 Status: COMPLETED Source: [facility] 5:55 PM [facility]IC OTHER CAMPUS REPOSITORY [facility] ID: [id number] Author: Madiha ParksRn) ELENA Joyce Service: (none) Author Type: Registered Nurse Type: ED Notes Filed: 12/19/2017 5:57 PM Note Text: Pt ambulated with this RN and portable oxygen to bathroom. Pt very short of breath by time she made it back to bed. Oxygen stayed stable, 94% 4L NC. CASE MGT INIT Observed: 12/19/2017 Status: COMPLETED Source: [facility] 5:50 PM CLINIC OTHER CAMPUS REPOSITORY [facility] ID: [id number] Author: Tiffany Vieira (Sw) Service: (none) Author Type: Tax Preparer Type: Care Mgt Initial Assessment Filed: 12/19/2017 6:19 PM Note Text: CARE MANAGEMENT: ASSESSMENT AND DISCHARGE PLAN SERVICE DATE: 12/19/2017 SERVICE TIME: 4:35 pm PRIMARY CARE PHYSICIAN: Mani Newman MD - confirmed with pt ADMISSION STATUS: Emergency POTENTIAL DISCHARGE PLANS Home Home Care Patient/Material Processor Stated Goals: Pt is from home and is active with [facility] for wound care. Raxakddu-lw-hnd to transport at d/c. Pt reported she was recently informed that the [facility] agency is closing and she is looking for a [facility] agency. Pt stated that the wound RN visits every 3 days. SW provided list of options for pt. Pt did not say if she would like to resume services with [facility] upon d/c or establish services with another agency. CM to remain available for d/c planning and follow up on choices. Needs Prior to Discharge: Facility or Agency Choices;Home Care Order Health Insurance: Medicare, [place] Living Arrangement: Home Lives With: Alone; however, pt noted that her gudhdrbh-rn-xrb lives in the unit above her Financial Resources: Retired Primary Contact: Extended Emergency Contact Information Primary Emergency Contact: Sheron Beltran Mobile Relation: Other Supportive: Yes Other Important Patient Contacts: None CAREGIVER ASSESSMENT: Caregiver is ready, willing and able to meet the patient's needs as recommended by the inter-professional team? Yes Patient's transition needs and plan for meeting these needs: Pt is from home with home health nursing and would like to continue services at d/c; paasvrxq-su-bjs to transport Does the patient have an acute stroke diagnosis, or has the patient had a stroke during this admission? No ADVANCE DIRECTIVES: Does Patient Have Advance Directives? Pt reported she had advance directives but her son, who was named in the document, recently ; SW provided new copies of AD's Does Patient Have Concerns About Advance Directives? Yes, pt was concerned about documents being honored in another state while traveling (particularly [place], where her daughter lives) and SW found information on the internet stating that [place] honors AD paperwork completed in another state; pt advised this may not be the most recent information and encouraged pt to complete AD documents in [place] PRIOR TO ADMISSION: Baseline Mental Status: Alert AND Oriented, Person, Place , Time and Situation Functional Status: Independent Does Patient Currently Receive Any Community Services or Home Care? Home Health Care Agency: [facility]; ; Active. Equipment Prior to Admission: Oxygen 3 liters per minute Walker Wound Care supplies Provider [facility]: Health Issues Impacting Discharge Plan: HTN, COPD, Sleep Apnea, AFib, CAD Health Literacy Issues: No PSYCHOSOCIAL: Is the Patient Psychosocially Complex? No Family/Patient Understanding of Illness/Diagnosis: Unknown Medication Adherence: Do you forget to take your medications? I do not forget to take my medication Have you ever stopped taking medications because you felt worse? None of the time Have you ever taken less of your medication than what was prescribed by your doctor? None of the time In the past 3 months, have you had issues obtaining one or more of your medications? None of the time Are you interested in bedside delivery of your medications? No Food Concerns: In the Last Month, Have You had Trouble Getting Food? No trouble getting food During the Last Month, Have You Worried Whether Your Food Would Run Out Before You Had Enough Money to Buy More? No Psychosocial Needs: None UTILIZATION: Last Admission Date: Previous admit date: 09/30/2017 Is this Within the Past 30 days? No Has the Patient Been in a Half-Way Facility in the Past 30 days? No FREEDOM OF CHOICE EXPLAINED: Yes SW explained that pt is able to choose [facility] agency HANDOFF COMMUNICATION: To be completed upon d/c SIGNATURE: NAILA AMEZCUA PATIENT NAME: Rosa Beltran DATE: December 19, 2017 TIME: 5:50 PM PAGER/CONTACT #: [phone] HISTORY PHYSICAL Observed: 12/19/2017 Status: COMPLETED Source: [facility] 5:37 PM CLINIC OTHER CAMPUS REPOSITORY [facility] ID: [id number] Author: Justin Dangelo (Pa) Service: General Internal Medicine Author Type: Physician Motor Vehicle Compliance Analyst Type: HANDP Filed: 12/19/2017 8:36 PM Note Text: Attestation signed by Gallito Clarke at 12/19/2017 10:16 PM Examined the pt in independently of the PA. She has been more short of breath over the past few weeks. She states that she is complaint with her medications along with dietary compliance but does not measure the amount of salt or fluid intake. She was started on methalolzone by Her PCP due to worsening sob and LE edema. On phsycial exam, she is AAOx3, heart /lungs are clear with mild crackles at the bases. +4LE edema. She will be started on lasix 40IV BID. Strict IANDOs. She back on her baseline 3L NC. Will get wound care for her lower extremities. Will follow IANDOs and Cr/K HOSPITAL MEDICINE HISTORY AND PHYSICAL EXAM PATIENT NAME: Rosa Beltran SERVICE DATE: 12/19/2017 SERVICE TIME: 5:39 PM Primary Care Physician: Mani Newman MD NIGHT COVERAGE Page [phone] for any questions between 5.30p-7.30a ASSESSMENT AND PLAN Active Hospital Problems Diagnosis - Heart failure with preserved ejection fraction (HCC) SOB, increased BLE, weight up by 20 lbs this month. On home 02 2L. ECHO 04/2017: EF 65%, biatrial enlargement, mild MVI, moderated TVI, mild-mod PVI, Pulm HTN 54 mmHg. Fluid restrict, Strict IANDO, daily weights. Lasix 40mg BID IVP. - Chronic atrial fibrillation (HCC) On coumadin. Rate controlled and on metoprolol. Tele. - Lymphedema of both lower extremities Wound/skin consult. - Hypertension Mildly elevated. Continue home meds and monitor. - Acquired hypothyroidism Continue synthroid. SUBJECTIVE CHIEF COMPLAINT: SOB HPI: This is a 82 year old female with PMHx of CAD s/p PCI, AF on coumadin, HTN, HLD, BEBA, RA who presents with CARRANZA that has progressed for the last few weeks. Associated increased BLE edema and orthopnea. Pt is on 2L 02 at home and has been increasing. She was started on metolazone on 12/15/17. BNP 4066 similar to previous reading of 4127 on 09/2017. CE neg x 1 set. Hb mildly decreased at 11.2 otherwise CBC unremarkable. Weight is up 20 lbs from the beginning of December. Last ECHO 05/17/2017: EF 65%, biatrial enlargement, mild MVI, moderated TVI, mild-mod PVI, Pulm HTN 54 mmHg. PAST MEDICAL HISTORY: PAST MEDICAL HISTORY Diagnosis Date - Acquired hypothyroidism - Acute respiratory failure with hypoxia (HCC) 09/30/2017 - Atrial fibrillation (HCC) - CAD (coronary artery disease) Dr. Brenda Awan Hts, Promus element KIMMY LAD 11/20/2012, Stress test 04/2014 inferoapical reversible ischemia,small LVEF 48- 50%, C 12/2014 L main-normal, LAD widely patent, Cx diffuse mild luminal irregularities with 80%focal stenosis distal, RCA dominant with minimal luminal irregularities. PTCA and Promus premier KMIMY distal Cx 12/20/2014, RX aspirin and plavix - Cecal ulcer 06/10/2017 - Chronic atrial fibrillation (HCC) 10/08/2016 - COPD (chronic obstructive pulmonary disease) ([facility]) - Depressive disorder 12/29/2016 - Disruption of surgical wound 09/2015 Right tibia - Dorsalgia 12/29/2016 - Dyslipidemia - Gastric bypass status for obesity 12/29/2016 - Gastroesophageal reflux disease without esophagitis 10/08/2016 - HTN (hypertension) - Muscular weakness 12/29/2016 - Primary osteoarthritis involving multiple joints 12/29/2016 - Pure hypercholesterolemia - Rheumatoid arthritis ([facility]) 2007 - Sleep apnea - Stented coronary artery 12/29/2016 PAST SURGICAL HISTORY: PAST SURGICAL HISTORY Procedure Laterality Date - CC CORONARY STENT 11/20/2012 KIMMY LAD - CC CORONARY STENT 12/20/2014 KIMMY, Cfx - SECTION HX - COLONOSCOPY 06/10/2017 [facility], Nonspecific cecal ulcer - GASTRIC BYPASS HX 1986 - HERNIA REPAIR HX 1987; 1989 - PAST SURGICAL HISTORY OF Right 09/2015 right tibia fracture ORIF - PAST SURGICAL HISTORY OF Right 01/20/2016 Removal of hardware, right tibia - TOTAL KNEE REPLACEMENT Right 2003 [facility] Gen. - TOTAL KNEE REPLACEMENT Left 2004 [facility]. FAMILY HISTORY: No family history on file. SOCIAL HISTORY: Social History Substance Use Topics - Smoking status: Passive Smoke Exposure - Never Smoker - Smokeless tobacco: Never Used Comment: smoked for 40 years - Alcohol use No MEDICATIONS: Reviewed ALLERGIES: ALLERGIES No Known Allergies REVIEW OF SYSTEM: PAIN ASSESSMENT: Negative for pain, history of chronic pain, or current treatment for a chronic pain condition. GENERAL: No weight loss, malaise or fevers. HEENT: Negative for frequent or significant headaches, No changes in hearing or vision, no nose bleeds or other nasal problems NECK: Negative for lumps, goiter, pain and significant neck swelling RESPIRATORY: +CARRANZA, orthopnea CARDIOVASCULAR: +BLE edema greater than baseline. Negative for chest pain or palpitations. GI: No nausea, vomiting, or diarrhea : No history of dysuria, frequency or incontinence. MUSCULOSKELETAL: Negative for joint pain or swelling, back pain or muscle pain. SKIN: Negative for lesions, rash, and itching. PSYCH: Negative for sleep disturbance, mood disorder and recent psychosocial stressors. HEMATOLOGY/LYMPHOLOGY: Negative for prolonged bleeding, bruising easily or swollen nodes. ENDOCRINE: Negative for cold or heat intolerance, polyuria, polydipsia and goiter. NEURO: No history of headaches, syncope, paralysis, seizures or tremors OBJECTIVE PHYSICAL EXAM: BP 159/95 Pulse 56 Temp (Src) 97.7 (Oral) Resp 16 Wt 225 lb (102.1kg) SpO2 96% GENERAL: alert, no distress, cooperative SKIN: Skin color, texture, turgor normal. No rashes or lesions. NECK: no jugulovenous distention, supple BACK: Back symmetric, Normal curvature, ROM normal, No CVAT. LUNGS: Lungs clear to auscultation. Good diaphragmatic excursion. CARDIAC: bradycardia ABDOMEN: Abdomen soft, non-tender. BS normal. No masses or organomegaly. EXTREMITIES: BLE edema, legs wrapped. Chronic changes to feet from PVD. NEURO: Sensation grossly intact., Cranial nerves II-XII intact DATA: Diagnostic tests reviewed for today's visit: Most recent labs Most recent imaging Most recent EKG CBC: WBC 6.48 12/19/2017 Hemoglobin 11.2 12/19/2017 Hematocrit 37.4 12/19/2017 Platelet Count 192 12/19/2017 CMP: Sodium 140 12/19/2017 Potassium 4.4 12/19/2017 BUN 34 12/19/2017 Creatinine 0.98 12/19/2017 Glucose 98 12/19/2017 Chloride 101 12/19/2017 CO2 29 12/19/2017 VTE Prophylaxis: Patient is already anti-coagulated. Disposition: TBD Plan of care discussed with: Patient, Family/Other: and RN SIGNATURE: Justin Dangelo PA-C DATE: December 19, 2017 TIME: 5:39 PM PLAN OF CARE Observed: 12/19/2017 Status: COMPLETED Source: [facility] 2:33 PM CLINIC OTHER CAMPUS REPOSITORY O ID: [id number] Author: Channing Son (Pharmacist) Service: Pharmacy Author Type: Pharmacist Type: Plan of Care Filed: 12/19/2017 2:35 PM Note Text: MEDICATION HISTORY Patient Name:Rolo Beltran : 1935 Source of history:Patient: Reliability of source: Appears reliable, clearly identified: Medication name, Medication dose, Medication route, Medication frequency and Timing of last dose and Pharmacy records: [facility] Medication Nonadherence Identified: No barriers noted The above information represents the best possible medication history: Yes Additional comments: ? Medications removed: ? None - patient does not take zinc sulfate, but unable to remove from med list because order is ? Medications adjusted: ? Warfarin - sig ? Patient states her maintenance regimen was adjusted ~3 weeks ago due to an elevated INR. Maintenance regimen was decreased to warfarin 3mg PO every day. Patient states last INR ~1 week ago was within goal range and maintenance regimen of warfarin 3mg PO every day was continued. ? Medications added: ? Vitamin C ? Allergy list modifications: ? None, NKDA Allergies: ALLERGIES No Known Allergies Preferred Pharmacy: [facility] Current TRAVEL DIRECTOR Medications: Prior to Admission medications as of 12/19/17 1433 Medication Sig Last Dose Taking ASCORBIC ACID (VITAMIN C ORAL) Take 1 tablet by mouth twice daily. 12/18/2017 at Unknown time Yes metOLAzone (ZAROXOLYN) 2.5 mg tablet Take 1 tablet by mouth once daily. 12/18/2017 at Unknown time Yes warfarin (COUMADIN) 1 mg tablet TAKE ONE TABLET BY MOUTH ONCE DAILY OR DIRECTED WITH THE 3MG TABLETS 12/18/2017 at Unknown time Yes silver sulfADIAZINE (SILVADENE) 1 % cream Apply to leg wounds as directed. Unknown at Unknown time Yes acetaminophen (TYLENOL) 500 mg tablet Take 1,000 mg by mouth every 8 hours as needed. 12/18/2017 at 2200 Yes aspirin, enteric coated (ASPIRIN, ENTERIC COATED) 81 mg EC tablet Take 81 mg by mouth every evening. 12/18/2017 at 2000 Yes warfarin (COUMADIN) 1 mg tablet Take 1 mg by mouth daily as directed. As of 12/19/17: patient is only using 3mg tablets taking 1 x 3 mg tablet every day of the week. 12/18/2017 at Unknown time Yes warfarin (COUMADIN) 3 mg tablet Take 3 mg by mouth daily as directed. As of 12/19/17: Patient takes 1 tablet (3mg) by mouth once daily every day of the week. 12/18/2017 at Unknown time Yes lisinopril (ZESTRIL) 2.5 mg tablet Take 2.5 mg by mouth every evening. 12/18/2017 at Unknown time Yes omeprazole (PRILOSEC) 20 mg capsule Take 20 mg by mouth once daily. 12/18/2017 at Unknown time Yes spironolactone (ALDACTONE) 25 mg tablet Take 25 mg by mouth every evening. 12/18/2017 at Unknown time Yes docusate sodium (COLACE) 100 mg capsule Take 100 mg by mouth once daily as needed. Unknown at Unknown time Yes therapeutic multivitamin w/ iron (THERAGRAN-M) 9 mg iron-400 mcg tablet Take 1 tablet by mouth once daily. 12/18/2017 at Unknown time Yes ergocalciferol, vitamin D2, (DRISDOL) 50,000 unit capsule Take 1 capsule by mouth once each week. Past Week at Unknown time Yes levothyroxine (LEVOXYL) 100 mcg tablet Take 1 tablet by mouth once daily. Take on empty stomach. For Thyroid. 12/19/2017 at 0700 Yes gabapentin (NEURONTIN) 300 mg capsule Take 1 capsule by mouth twice daily. 12/18/2017 at Unknown time Yes metoprolol tartrate, short acting, (LOPRESSOR) 50 mg tablet TAKE ONE TABLET BY MOUTH TWICE DAILY 12/18/2017 at Unknown time Yes furosemide (LASIX) 40 mg tablet Take 1 tablet by mouth twice daily. 12/18/2017 at Unknown time Yes COMPOUNDED PRESCRIPTION Calcium Alginate 4x4 Dressing, change daily Dx: Blister left leg with infection S80.822A, L08.9; Lymphedema I89.0. Wound dimensions: 4 x 3 cm Unknown at Unknown time Yes Zinc Sulfate 220 mg tab Take 1 tablet by mouth once daily for 14 days. Patient not taking: Reported on 12/19/2017 Not Taking at Unknown time CHANNING SON, PHARMACIST December 19, 2017 2:33 PM ED NOTE Observed: 12/19/2017 Status: COMPLETED Source: [facility] 1:44 PM CLINIC OTHER CAMPUS REPOSITORY HNO ID: [id number] Author: Madiha Hammer) ELENA Joyce Service: (none) Author Type: Registered Nurse Type: ED Notes Filed: 12/19/2017 1:44 PM Note Text: Dr. Pardo rounds on pt at bedside to assess. ED NOTE Observed: 12/19/2017 Status: COMPLETED Source: [facility] 1:41 PM CLINIC OTHER CAMPUS REPOSITORY HNO ID: [id number] Author: Madiha Hammer) ELENA Joyce Service: (none) Author Type: Registered Nurse Type: ED Notes Filed: 12/19/2017 1:41 PM Note Text: Pt ambulated to and from bathroom with assistance of RN. Pt requesting snack and given ernesto crackers and diet willie marin. HIGH SENS TROPONIN T Collected: 12/19/2017 Status: F Source: [facility] 1:19 PM CLINIC OTHER CAMPUS REPOSITORY TYPE CODE TESTS RESULT OUT OF REFERENCE UNITS RANGE LAB HSTN <12 ng/L High High Sensitivity YOLANDE 23 Result Comment: When assessing risk for acute coronary syndromes: In patients undergoing blood draw greater than or equal to 2 hours from symptom onset, with history of very low to moderate risk and non-ischemic ECG, an initial hs-Troponin T less than 12 ng/L AND a 1 hour delta hs-Troponin T less than 3 ng/L should be considered very low risk for 30 day MACE. Performed By: #### HSTNT #### [facility] [address] [place] [address] CBC AND DIFFERENTIAL Collected: 12/19/2017 Status: F Source: [facility] 12:00 PM CLINIC OTHER CAMPUS REPOSITORY TYPE CODE TESTS RESULT OUT OF REFERENCE UNITS RANGE LAB WBC 3.70-11.00 k/uL WBC 6.48 LAB RBC 3.90-5.20 m/uL RBC 3.93 LAB HGB 11.5-15.5 g/dL Low Hemoglobin 11.2 LAB HCT 36.0-46.0 % Hematocrit 37.4 LAB MCV 80.0-100.0 fL MCV 95.2 LAB MCH 26.0-34.0 pG MCH 28.5 LAB MCHC 30.5-36.0 g/dL Low MCHC 29.9 LAB RDWCV 11.5-15.0 % RDW-CV High 16.6 LAB PLTCT 150-400 k/uL Platelet Count 192 LAB MPV 9.0-12.7 fL MPV 11.0 LAB ANEUT % Neut% 62.4 LAB AANEUT 1.45-7.50 k/uL Abs Neut 4.04 LAB ALYMP % Lymph% 28.5 LAB AALYMP 1.00-4.00 k/uL Abs Lymph 1.85 LAB AMONO % [place]% 6.6 LAB AAMONO <0.87 k/uL Abs [place] 0.43 LAB AEOS % Eosin% 2.0 LAB AAEOS <0.46 k/uL Abs Eosin 0.13 LAB ABASO % Baso% 0.5 LAB AABASO <0.11 k/uL Abs Baso 0.03 Performed By: #### CBCDIF, PT, PTT, CMP, LIPA #### [facility] [address] [facility] [phone] PROTIME Collected: 12/19/2017 Status: F Source: [facility] 12:00 PM [facility] OTHER CAMPUS REPOSITORY TYPE CODE TESTS RESULT OUT OF RANGE REFERENCE UNITS LAB PSEC 9.7-13.0 sec High PT Sec 23.6 LAB INR 0.9-1.3 High PT INR 2.3 Result Comment: Vitamin K Antagonist (VKA) Therapeutic Range: INR 2 to 3 (Target INR of 2.5) Note: For patients treated with VKA drugs, such as warfarin, the [place] [employer] 2012 Guideline recommends a therapeutic INR range of 2 to 3 (target INR of 2.5). This recommendation includes high-risk patients with antiphospholipid syndrome with previous arterial or venous thromboembolism, current-generation mechanical or bioprosthetic aortic heart valve replacement. Note: Patients with mechanical aortic valve replacement and additional risk factors for thromboembolic events (atrial fibrillation, previous thromboembolism, LV dysfunction, hypercoagulable conditions) or an older generation mechanical AVR (i.e., ball in-Cage) or any mechanical MVR should have a INR therapeutic range of 2.5 to 3.5 (target INR of 3). Shweta SALOMON, et al. Chest 2012, 141:7S-47S Genveieve ESTRADA et al. [facility] 2017, 70: 252-289 Performed By: #### CBCDIF, PT, PTT, CMP, LIPA #### [facility] [address] [facility] [phone] APTT Collected: 12/19/2017 Status: F Source: [facility] 12:00 PM [facility] OTHER [place] REPOSITORY TYPE CODE TESTS RESULT OUT OF RANGE REFERENCE UNITS LAB APTT 23.0-32.4 sec High APTT 37.4 Result Comment: Unfractionated Heparin Therapeutic Ranges: Standard Heparin Nomogram: 53 to 78 seconds (anti-Xa level of 0.3 to 0.7 U/ml) Low Dose/ACS Nomogram: 49 to 67 seconds (anti-Xa level of 0.2 to 0.5 U/ml) Stroke Treatment Nomogram: 49 to 67 seconds (anti-Xa level of 0.2 to 0.5 U/ml) Note: The APTT therapeutic range has been determined for the current lot of laboratory APTT reagent in use throughout the [facility]. Performed By: #### CBCDIF, PT, PTT, CMP, LIPA #### [facility] [address] [facility] [phone] COMP METABOLIC PANEL Collected: 12/19/2017 Status: F Source: [facility] 12:00 PM CLINIC OTHER CAMPUS REPOSITORY TYPE CODE TESTS RESULT OUT OF REFERENCE UNITS RANGE LAB TP 6.3-8.0 g/dL Protein, High Total 8.3 LAB ALB 3.9-4.9 g/dL Low Albumin 3.3 LAB CA 8.5-10.2 mg/dL Low Calcium, Total 8.3 LAB TBIL 0.2-1.3 mg/dL Bilirubin, Total 0.7 LAB ALKP 32-117 U/L Alkaline Phosphatase 79 LAB AST 13-35 U/L AST 23 LAB GLU 74-99 mg/dL Glucose 98 Result Comment: The [place] Diabetes [employer] (ADA) provides guidance for cutoff values for fasting glucose and random glucose. The ADA defines fasting as no caloric intake for at least 8 hours. Fas ting plasma glucose results between 100 to 125 mg/dL indicate increased risk for diabetes (prediabetes). Fasting plasma glucose results greater than or equal to 126 mg/dL meet the criteria for diagnosis of diabetes. In the absence of unequivocal hyperglycemia, results should be confirmed by repeat testing. In a patient with classic symptoms of hyperglycemia or hyperglycemic crisis, random plasma glucose results greater than or equal to 200 mg/dL meet the criteria for diagnosis of diabetes. Reference: Standards of Medical Care in Diabetes 2016, [place] [employer] Association. Diabetes Care. 2016.39(Suppl 1). LAB BUN 7-21 mg/dL BUN High 34 LAB CRET 0.58-0.96 mg/dL Creatinine High 0.98 LAB NA 136-144 mmol/L Sodium 140 LAB K 3.7-5.1 mmol/L Potassium 4.4 LAB CL 97-105 mmol/L Chloride 101 LAB CO2 22-30 mmol/L CO2 29 LAB AGAP 9-18 mmol/L Anion Gap 10 LAB ALT 7-38 U/L ALT 10 LAB GFRAA eGFR- Amer. >60 LAB GFRNAA . eGFR-All Other Races 54 Result Comment: eGFR (Estimated GFR) Units of measure: mL/min/1.73 meters squared eGFR is derived from the reexpressed MDRD Study equation using the following parameters: serum creatinine, age, gender and race. The creatinine assay has been calibrated to be traceable to IDMS. An eGFR <60 mL/min/1.73m2 for >3 months is consistent with chronic kidney disease. Refer to KDOQI guidelines for clinical interpretation. In patients with unstable renal function, e.g. those with acute kidney injury, the eGFR may not accurately reflect actual GFR. Performed By: #### CBCDIF, PT, PTT, CMP, LIPA #### [facility] [address] [place] [address] LIPASE Collected: 12/19/2017 Status: F Source: [facility] 12:00 PM CLINIC OTHER CAMPUS REPOSITORY TYPE CODE TESTS RESULT OUT OF REFERENCE UNITS RANGE LAB LIPA 16-61 U/L Lipase 22 Performed By: #### CBCDIF, PT, PTT, CMP, LIPA #### [facility] [address] [place] [phone] NT PRO BNP Collected: 12/19/2017 Status: F Source: [facility] 12:00 PM CLINIC OTHER CAMPUS REPOSITORY TYPE CODE TESTS RESULT OUT OF REFERENCE UNITS RANGE LAB PBNP <450 pg/mL High PRO B Natr 4066 Peptide Performed By: #### NTBNP #### [facility] [address] [place] [address] HIGH SENS TROPONIN T Collected: 12/19/2017 Status: F Source: [facility] 12:00 PM [facility] OTHER CAMPUS REPOSITORY TYPE CODE TESTS RESULT OUT OF REFERENCE UNITS RANGE LAB HSTN <12 ng/L High High Sensitivity YOLANDE 27 Result Comment: When assessing risk for acute coronary syndromes: In patients undergoing blood draw greater than or equal to 2 hours from symptom onset, with history of very low to moderate risk and non-ischemic ECG, an initial hs-Troponin T less than 12 ng/L AND a 1 hour delta hs-Troponin T less than 3 ng/L should be considered very low risk for 30 day MACE. Performed By: #### HSTNT #### [facility] [address] [place] [address] CK, TOTAL AND CKMB Collected: 12/19/2017 Status: F Source: [facility] 12:00 PM [facility] OTHER CAMPUS REPOSITORY TYPE CODE TESTS RESULT OUT OF REFERENCE UNITS RANGE LAB CK 42-196 U/L Low 41 CK LAB MB <4.3 ng/mL MB 2.4 LAB CKMBRI 0.0-4.0 % CK CK MB MB % not % reported with CK <100 U/L. Performed By: #### CKCKMB #### [facility] [address] [facility] [phone] ED NOTE Observed: 12/19/2017 Status: COMPLETED Source: [facility] 11:58 AM [facility] OTHER CAMPUS REPOSITORY HNO ID: [id number] Author: Madiha (Rn) ELENA Joyce Service: (none) Author Type: Registered Nurse Type: ED Notes Filed: 12/19/2017 11:58 AM Note Text: Medic at bedside to obtain PIV and lab work. XR CHEST 1V FRONTAL Observed: 12/19/2017 Status: F Source: [facility] 11:41 AM [facility] OTHER CAMPUS REPOSITORY * * *Final Report* * * DATE OF EXAM: Dec 19 2017 11:41AM MDX [id number] - XR CHEST 1V FRONTAL PORT / PROCEDURE REASON: Dyspnea * * * * Physician Interpretation * * * * EXAMINATION: CHEST RADIOGRAPH (PORTABLE SINGLE VIEW AP) Exam Date/Time: 12/19/2017 11:41 AM Indication: Dyspnea M: XCP_4 Comparison: 12/02/2017 RESULT: See impression. IMPRESSION: Lines, tubes, and devices: EKG leads overlie the thorax. Lungs and pleura: Bilateral pulmonary opacities are again noted, similar to prior examination from 12/02/2017. No significant pleural effusion is identified. No pneumothorax is evident. Cardiomediastinal silhouette: Stable cardiomediastinal silhouette. Other: Nonacute or remote fracture of the right eighth rib. Gaseous prominence of the gastric bubble. Stereotype Finisher: PSCB Transcribe Date/Time: Dec 19 2017 11:46A Dictated by : DORENE CARBONE MD This examination was interpreted and the report reviewed and electronically signed by: DORENE CARBONE MD on Dec 19 2017 11:49AM EST [id number] Observed: 12/19/2017 Status: COMPLETED Source: [facility] 10:30 AM CLINIC OTHER CAMPUS REPOSITORY HNO ID: [id number] Author: Luis Lyles (Loi) LOI Simons Service: (none) Author Type: Nurse Practitioner Type: Progress Notes Filed: 01/03/2018 10:52 AM Note Text: DATE OF VISIT: 12/19/2017 REASON FOR VISIT: Non-healing lower extremity wound. HISTORY OF PRESENT ILLNESS: Rosa Beltran is a 81 year old female who presents to the [facility] for further evaluation and management of a non-healing leg wound. She has a past medical history significant for atrial fibrillation on Coumadin, coronary artery disease,?COPD, hypertension, dyslipidemia and CHF.?Patient has felt mildly short of breath over the past month. ?Increase with exertion and lying flat. She is on 40 mg of Lasix twice a day. She still is urinating appropriately. She has not had any chest pain or palpitations. ?Fever, chills, or sweats. ?No productive cough. ?No wheezing. Upon taking patients vitals, her SPO2 level was from 76% - 85%. Patient stated she had shortness of breath. She was unable to finish her sentences without catching her breath. The tips of her fingers were cyanotic. Patient was sent to the ER for further evaluation. Tiffanie BARBOSA wheeled patient to the ER. INTERVAL HISTORY: Patient was sent tot he ED during her previous visit due to low oxygenation. She is now on 2 L of oxygen at all times. She denies any breathing difficulty at this time. She is an 81 year old white female with a long-standing history of swelling in her lower extremities secondary to lymphedema. Approximately 2 years ago, she sustained a fracture to her right ankle, requiring surgical intervention. The operative site became infected, and required prolonged treatment and eventually a skin graft for complete wound closure. As a result, the patient's ambulatory capacity has been impaired. Furthermore, she is morbidly obese which limits her ambulation. The patient leads a relatively sedentary lifestyle and requires a walker for ambulation. She spends a great part of her day in a sitting position. She sleeps with the head of the bed elevated. Swelling in her lower extremities has been on-going for many years. The patient has undergone a battery of diagnostic tests. A non-invasive lower extremity arterial study in December 2016 reveals normal- ankle brachial indices, bilaterally. Venous doppler examination on 01/14 reveals incompetence of the great saphenous veins, bilaterally. There is also incompetence of the small saphenous veins, bilaterally and the right accessory saphenous vein. At present, she has three wounds, 2 on the right distal leg and the other is on the left posterior calf. The left leg wound has been present for over a year and was managed with silver alginate, NPWT, Santyl, serial sharp wound debridements, compression therapy using Surepress and compression pumps. Patient's wound cultures over the past several months have grown out Enterobacter cloacae, MRSA, coag-staph aureus, and in January grew out Pseudomonas, managed with oral antibiotics. IIn July of this year, she developed a new wound on the right lateral distal leg, then in July, she experience cellulitis of both legs requiring hospitalization. In the last year, she has been followed by Dr. Jaskaran Chance at the [facility]. It was felt that her home support system was inadequate and that she may not have the resources in her home environment to appropriately care for her needs. In this regard, a geriatric social work professor consultation had been recommended on several occassions, but patient apparently insisted on remaining in her home environment despite that there was thought that is may be less than optimal. The patient is here at the [facility] for a second opinion regarding management of the abovementioned bilateral lower extremity wounds. She offers no other complaints. She denies any fevers, chills, wound-related pain or other related symptoms. 11/25/17 Patient presents for follow-up. Overall, her lower extremity wounds are progressing favorably. One of the three is now healed. The remaining two show evidence of wound contraction and granulation tissue formation. To date, wounds have been managed with sharp debridement, collagen/anti-microbial dressing, compression therapy and nutritional support. She offers no new complaints. The edema in her lower extremities is well-controlled. She denies any fever, chills or other related symptoms. PAST MEDICAL HISTORY Diagnosis Date - Acquired hypothyroidism - Acute respiratory failure with hypoxia (HCC) 09/30/2017 - Atrial fibrillation (HCC) - CAD (coronary artery disease) Dr. Brenda Awan Hts, Promus element KIMMY LAD 11/20/2012, Stress test 04/2014 inferoapical reversible ischemia,small LVEF 48- 50%, LHC 12/2014 L main-normal, LAD widely patent, Cx diffuse mild luminal irregularities with 80%focal stenosis distal, RCA dominant with minimal luminal irregularities. 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 - Pure hypercholesterolemia - Rheumatoid arthritis ([facility]) 2007 - Sleep apnea - Stented coronary artery 12/29/2016 PAST SURGICAL HISTORY Procedure Laterality Date - CC CORONARY STENT 11/20/2012 [facility] - CC CORONARY STENT 12/20/2014 KIMMY, Cfx - SECTION HX - COLONOSCOPY 06/10/2017 [facility], Nonspecific cecal ulcer - GASTRIC BYPASS HX 1986 - HERNIA REPAIR HX 1987; 1989 - PAST SURGICAL HISTORY OF Right 09/2015 right tibia fracture ORIF - PAST SURGICAL HISTORY OF Right 01/20/2016 Removal of hardware, right tibia - TOTAL KNEE REPLACEMENT Right 2003 [facility] Gen. - TOTAL KNEE REPLACEMENT Left 2004 [facility] Gen. MEDICATIONS ergocalciferol, vitamin D2, (DRISDOL) 50,000 unit capsule Take 1 capsule by mouth once each week. levothyroxine (LEVOXYL) 100 mcg tablet Take 1 tablet by mouth once daily. Take on empty stomach. For Thyroid. gabapentin (NEURONTIN) 300 mg capsule Take 1 capsule by mouth twice daily. metoprolol tartrate, short acting, (LOPRESSOR) 50 mg tablet TAKE ONE TABLET BY MOUTH TWICE DAILY furosemide (LASIX) 40 mg tablet Take 1 tablet by mouth twice daily. COMPOUNDED PRESCRIPTION Calcium Alginate 4x4 Dressing, change daily Dx: Blister left leg with infection S80.822A, L08.9; Lymphedema I89.0. Wound dimensions: 4 x 3 cm acetaminophen (TYLENOL) 500 mg tablet Take 1,000 mg by mouth every 8 hours as needed. aspirin, enteric coated (ASPIRIN, ENTERIC COATED) 81 mg EC tablet Take 81 mg by mouth once daily. warfarin (COUMADIN) 1 mg tablet Take 1 mg by mouth daily as directed. Take 1 tablet (1mg) by mouth once daily. Take with 1 x 3mg tablet to total 4mg by mouth once daily. warfarin (COUMADIN) 3 mg tablet Take 3 mg by mouth daily as directed. Take 1 tablet (3mg) by mouth once daily. Take with 1 x 1mg tablet to total 4mg by mouth once daily. lisinopril (ZESTRIL) 2.5 mg tablet Take 2.5 mg by mouth once daily. omeprazole (PRILOSEC) 20 mg capsule Take 20 mg by mouth once daily. spironolactone (ALDACTONE) 25 mg tablet Take 25 mg by mouth once daily. docusate sodium (COLACE) 100 mg capsule Take 100 mg by mouth once daily as needed. therapeutic multivitamin w/ iron (THERAGRAN-M) 9 mg iron-400 mcg tablet Take 1 tablet by mouth once daily. ALLERGIES No Known Allergies FAMILY HISTORY: Patient's father in his 70s with a history of arthritis. Her mother at the age of 90 with a history of arthritis. SOCIAL HISTORY Patient is a , lives alone, but has a son nearby. She has 6 children. Substance Use Topics - Smoking status: Passive Smoke Exposure - Never Smoker - Smokeless tobacco: Never Used Comment: smoked for 40 years - Alcohol use No REVIEW OF SYSTEM: PAIN ASSESSMENT: Negative for pain, history of chronic pain, or current treatment for a chronic pain condition. GENERAL: No weight loss, malaise or fevers HEENT: Negative for frequent or significant headaches, No changes in hearing or vision, no nose bleeds or other nasal problems NECK: Negative for lumps, goiter, pain and significant neck swelling RESPIRATORY: Negative for cough, hemoptysis, wheezing, positive for shortness of breath CARDIOVASCULAR: Negative for chest pain,palpitations; has chronic leg swelling GI: No nausea, vomiting, or diarrhea : No history of dysuria, frequency or incontinence MUSCULOSKELETAL: Negative for joint pain or swelling, back pain or muscle pain SKIN: As per HPI. Negative for any other lesions, rash, and itching PSYCH: Negative for sleep disturbance, mood disorder and recent psychosocial stressors HEMATOLOGY/LYMPHOLOGY: Negative for prolonged bleeding, bruising easily or swollen nodes ENDOCRINE: Negative for cold or heat intolerance, polyuria, polydipsia and goiter NEURO: No history of headaches, syncope, paralysis, seizures or tremors 12/19/17 1000 BP: 135/69 Pulse: 60 Resp: 16 Temp: 36.5 ?C (97.8 ?F) TempSrc: Oral SpO2: 94% Weight: 88.1 kg (194 lb 4.8 oz) PHYSICAL EXAMINATION: HEENT: PERRLA , sclera non-icteric, EOM intact, mucous membrane moist, pink and w/o lesions Comments: Neck: Supple, no bruit, no masses, trachea midline Comments: Chest: Lungs clear to auscultation, no accessory muscle use for respiration Comments: Heart: Regular rate/rhythm, normal S1,S2, no murmur, rubs or gallops Comments: Abdomen: Soft, non-tender, non-distended, + bowel sounds, no bruit, no organomegaly Comments: Extremity: Dorsalis pedis : Present (Y) Absent Diminished Doppler Posterior Tibialis: Present (Y) Absent Diminished Doppler Capillary Refill: < 3 sec. (Y) > 3 sec. 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 10/14/17 WBC 8.4, Hgb 12.2, Hct 38.5, PLT 211, Glu 91, BUN 24, Cr 0.88, Na 136, K 4.7, Cl 100, Albumin 3.6, Total protein 9.1 11/04/17 Venous Doppler Study Bilateral Lower Extremities IMPRESSION RIGHT SIDE - DEEP VEINS Negative for acute deep vein thrombosis in vessels visualized. Positive for valvular incompetency in the common femoral vein and femoral vein. Lymph node noted, within the groin, measuring 2.75 x 2.71 x .809cm. Cystic structure noted, within the popliteal fossa, measuring 2.17 x 2.67 x 1.49cm. ? RIGHT SIDE - SUPERFICIAL VEINS Positive for valvular incompetency in the great saphenous vein. REFLUX ONLY NOTED AT PROXIMAL THIGH. Vessel becomes tortuous branching from proximal to distal calf. The anterior lateral branch is negative for incompetency. Positive for valvular incompetency in the small saphenous vein. REFLUX ONLY NOTED AT DISTAL CALF. LEFT SIDE - DEEP VEINS Negative for acute deep vein thrombosis in vessels visualized. Positive for valvular incompetency in the femoral vein at the mid thigh. LEFT SIDE - SUPERFICIAL VEINS Positive for valvular incompetency in the great saphenous vein. REFLUX ONLY NOTED AT MID CALF. Negative for valvular incompetency in the small saphenous vein. No previous scans for comparison; however, chronic appearing superficial thrombophlebitis in the great saphenous vein at the distal calf. ? Technologist: Cleo HOBBST Ordering physician: Luis Simons ? Interpreting physician: Vishal Torres MD, SHREE ? 01/24/17 Segmental arterial doppler study bilateral lower extremities Findings: NIMISHA 1.04 to the right and 1.0 to the left. Based upon the findings of this resting non-invasive lower extremity arterial study, arterial perfusion to ankle level appears to be relatively normal bilaterally. Triphasic and biphasic waveforms were noted at ankle level bilaterally. Resting ankle-brachial indices were bilaterally normal. ? 08/01/17 X-Ray 3-View Right Ankle Impression: There is prior open reduction internal fixation of the fibula which appears to be relatively intact allowing for advanced bony osteopenia. There is an irregular appearance of the lateral side distal tibia which is compatible with a prior fracture for which a new fracture on the lateral side is not excluded. The fracture could be potentially be associated with new trauma or potentially infection. Recommend consideration for follow-up study such as MRI or potentially three-phase bone scan. ? Flattened appearance of the arch of the foot with degenerative change of the tarsotarsal joints. ? Diffuse soft tissue swelling. ? Electronically Signed: Kelly Camarena MD at 20:15 EDT Tel , Service support , ? 10/14/17 XR 2 View Tib/Fib (Left) Findings: Left tibia-fibula: Tibial component of the joint prosthesis noted without associated abnormal lucency. No acute fracture or bony destruction. Right tibia and fibula: Plate and screw fixation remote distal fibular fracture. There is also remote tibial fracture with residual posterior angulation. Ghost tracks from previous tibial hardware. Tibial component of the joint prosthesis noted without associated abnormal lucency. No acute fracture or bony destruction. ? Stereotype Finisher: DWIGHT ? Transcribe Date/Time: Oct 14 2017 ?4:02P Dictated by : ZURDO SANTOS MD ? 10/14/17 XR 2 View Tib/Fib (Right) Findings: Left tibia-fibula: Tibial component of the joint prosthesis noted without associated abnormal lucency. No acute fracture or bony destruction. Right tibia and fibula: Plate and screw fixation remote distal fibular fracture. There is also remote tibial fracture with residual posterior angulation. Ghost tracks from previous tibial hardware. Tibial component of the joint prosthesis noted without associated abnormal lucency. No acute fracture or bony destruction. ? Stereotype Finisher: DWIGHT ? Transcribe Date/Time: Oct 14 2017 ?4:02P Dictated by : ZURDO SANTOS MD ? 10/14/17 XR 2 View Tib/Fib (Left) Findings: Left tibia-fibula: Tibial component of the joint prosthesis noted without associated abnormal lucency. No acute fracture or bony destruction. Right tibia and fibula: Plate and screw fixation remote distal fibular fracture. There is also remote tibial fracture with residual posterior angulation. Ghost tracks from previous tibial hardware. Tibial component of the joint prosthesis noted without associated abnormal lucency. No acute fracture or bony destruction. WOUND ASSESSMENT: Wound Number: 1 First Assessed Date: 10/14/17 Pre-existing: YES Location: Leg Orientation: Right, Lateral and Distal Wound Etiology: Venous Depth of Tissue Injury (Non-pressure): Full Thickness Diabetic Wounds:N/A Pressure Injury: N/A Pre-Measurements Initial (First Visit): 3.5 cm length x 4.0 cm width x 0.5 cm depth Post Measurement (Current): 3.0 cm length x 3.7 cm width x 0.4 cm depth % Healing Rate/#Weeks: 37.5 % -- Week 5 Wound Bed (Post-debridement): 100% red % of Healthy tissue: Undermining: No Tunneling: No Tendon/bone exposed: NO Wound Edge/Margins: Irregular wound edges and Edge attached to base Periwound Tissue: Mild erythema, Wet (macerated), and Edema Exudate Amount:Moderate Consistency:Serous Odor:Minimal Infection/Critical Colonization Localized s/s: Non-healing and Increased exudate Systemic s/s: None Local/systemic Rx: None Wound Healing Status: Chronic Clinically presenting as: Stalled wound healing Current topical treatment: Iodoflex Wound Number: 2 First Assessed Date: 10/14/17 Pre-existing: YES Location: Leg Orientation: Right, Medial and Distal Wound Etiology: Surgical Depth of Tissue Injury (Non-pressure): Partial Thickness Diabetic Wounds:N/A Pressure Injury: N/A Pre-Measurements Initial (First Visit): 0.5 cm length x 0.4 cm width x 0.1 cm depth Post Measurement (Current): Epithelialized % Healing Rate/#Weeks: Week 1 -- Healed Wound Bed (Post-debridement): % of Healthy tissue: Undermining: No Tunneling: No Tendon/bone exposed: NO Wound Edge/Margins: Normal, intact, Irregular wound edges and Edge attached to base Periwound Tissue: Normal, intact,uninvolved tissue and Dry,flaky Exudate Amount: None Consistency: None Odor:None Infection/Critical Colonization Localized s/s: None and Edema Systemic s/s: None Local/systemic Rx: None Wound Healing Status: Chronic Clinically presenting as: Healed Current topical treatment: Iodoflex Wound Number: 3 First Assessed Date: 10/14/17 Pre-existing: YES Location: Leg (calf) Orientation: Left and Posterior Wound Etiology: Venous Depth of Tissue Injury (Non-pressure): Full Thickness Diabetic Wounds:N/A Pressure Injury: N/A Pre-Measurements Initial (First Visit): 1.3 cm length x 1.2 cm width x 0.1 cm depth Post Measurement (Current): Epithelialized % Healing Rate/#Weeks: 100 % -- Week 5 Wound Bed (Post-debridement): 100% [employer] % of Healthy tissue: Undermining: No Tunneling: No Tendon/bone exposed: NO Wound Edge/Margins: Well-defined wound edges and Edge attached to base Periwound Tissue: [employer], dry and intact, No fluctuance, induration or advancing soft tissue necrosis or ischemia Exudate: Nonr Consistency: None Odor:None Infection/Critical Colonization: N/A Localized s/s: None Systemic s/s: None Local/systemic Rx: None Wound Healing Status: Chronic Clinically presenting as: Healed Current topical treatment: Collagen IMPRESSION: 1. Non-healing right and left lower extremity wounds ( #1 and #3) in the setting of chronic venous insufficiency with secondary lymphedema. 2. Recurrent right medial leg wound s/p STSG in the setting of chronic edema. 3. Significant lower extremity edema secondary to underlying chronic venous insufficiency with secondary lymphedema. 4. Multiple risk factors or co-morbidities that may contribute to wound healing difficulties include hypothyroid disease, chronic atrial fibrillation on anticoagulation, coronary artery disease, COPD, dyslipidemia, hypertension, muscle weakness, osteoarthritis, GERD, depression and obesity. 5. Wound cultures positive for Enterobacter cloacae and Staph aureus most likely increased colonization. 6. Very good glucose control based on recent HgbA1c. 7. Zinc insufficiency ( precursor for collagen synthesis. 8. No significant arterial disease based on recent PVRs. 9. No evidence of osteomyelitis based on recent XRs. 10. Valvular incompetency involving the right common femoral vein , right femoral vein, right great saphenous vein, left femoral vein (mid thigh) and left great saphenous vein (mid thigh). TREATMENT PLAN: Debridement Type: Autolytic Enzymatic Mechanical Surgical Sharp (Y) Other: ?? Sharp debridement is performed to freshen up the wound and stimulate the healing cascade. It allows the wound to progress from the inflammatory to the proliferative phase of wound healing. Wound Dressing: See Nursing Notes for details. . Topical Rx: Wounds each flushed with 10 cc of saline solution. Vitamin AANDD ointment liberally applied to both lower legs. Saline moistened endoform applied to the wound bed. Equal parts of silvadene and Iodoflex on top of the endoform. Adaptic applied and secured with 1/2 steri-strips. Site covered with 4x4's, and abd pad followed with a profore lite compression wrap. Home care to perform dressing change every 3 days. Compression therapy: Profore Multiple layer Application: A 3- layer system applied to the bilateral lower extremities. A layer of cast padding, crepe bandage, light compression bandage, followed with a layer of coban and stockinet from behind the toes to 1 below the knee. Toes were warm and pink before and post application. + dorsal pedis pulse on palpation. It was demonstrated to the patient how to check for adequate circulation. If the patient exhibits a change in color to the extremity: change in temperature, increased pain, or the compression wrap becomes wet or to tight, the patient has been instructed to remove the wrap or go to the Emergency Department. Patient voices understanding with intent to comply. Pt instructed continue with leg elevation whenever possible to promote venous return to the heart. CirAids to be ordered for maintenance therapy. Use pneumatic compression pumps twice daily with 40-50 mmhg compression Systemic Rx: Doxycycline 100 mg by mouth twice daily x 14 days and zinc 220 mg by mouth daily x 14 days (Completed.) Nutritional Support: MVI, Zinc Supplement and Protein Supplement Patient is instructed to continue a healthy, well-balanced diet for nutritional support for optimal healing. Protein is the most important nutrient for wound healing. Eating adequate amounts of protein allows the body to create new cells and chemicals to heal the wound, and increases the body?s ability to fight infection. Eating high protein foods daily is recommended such as: lean meats, fish, poultry, cheese, milk, yogurt, eggs and legumes. Vitamins and minerals provide a full range of nutrients for wound healing. It can help jump start the body's production of cells and chemicals needed for healing. Vitamins and minerals can be obtained through healthy foods in your diet and by taking a multiple vitamin supplement. Vitamin C is essential for collagen synthesis. Collagen and fibroblasts compose the basis for the structure of a new wound bed. Also, a deficiency of Vitamin C prolongs the healing time and contributes to reduced resistance to infection. Laboratory: We will obtain wound cultures to determine bacterial load. Results positive for few Enterobacter cloacae complex and many Staph aureus. No anaerobic organisms or fungal elements. Wound cultures are collected to assess level of bacterial bio-burden. Excessive bio-burden can result in inflammatory and proliferative phase stagnation as well as compromise of normal wound healing physiology. Bacterial proliferation, biofilm production, critical colonization and the development of resistant organism can lead to wound infection, wound deterioration and devastating tissue loss. Knowing the organism that populated the wound can help direct therapy, particularly anti-microbial dressing choices. Vascular Evaluation: PVRs for both lower extremities to evaluate for arterial insufficiency to see if poor circulation is an issue regarding her slow healing. Based on vascular studies, patient to see Dr. Lili Mcnair for further evaluation and management of venous disease (valvular incompetency). Follow-up is scheduled in 1 week, sooner with any concerns or worsening symptoms. Luis Simons CNP Charge Capture: [id number] CNOV Observed: 12/19/2017 Status: COMPLETED Source: [facility] 10:30 AM [facility] OTHER CAMPUS REPOSITORY Office Visit ([facility]) ROSA BELTRAN ([id number]) 1935 F Date Time Provider Department 12/19/17 10:30 AM LUIS SIMONS, (LOI) [facility] During your visit today, we recorded the following information about you: Temperature Pulse Respiration Blood pressure 97.6 degrees 65/minute 16/minute 141/74 Luis Simons CNP, CNP 01/03/2018 10:52 AM Addendum DATE OF VISIT: 12/19/2017 REASON FOR VISIT: Non-healing lower extremity wound. HISTORY OF PRESENT ILLNESS: Rosa Beltran is a 81 year old female who presents to the [facility] for further evaluation and management of a non-healing leg wound. She has a past medical history significant for atrial fibrillation on Coumadin, coronary artery disease,?COPD, hypertension, dyslipidemia and CHF.?Patient has felt mildly short of breath over the past month. ?Increase with exertion and lying flat. She is on 40 mg of Lasix twice a day. She still is urinating appropriately. She has not had any chest pain or palpitations. ?Fever, chills, or sweats. ?No productive cough. ?No wheezing. Upon taking patients vitals, her SPO2 level was from 76% - 85%. Patient stated she had shortness of breath. She was unable to finish her sentences without catching her breath. The tips of her fingers were cyanotic. Patient was sent to the ER for further evaluation. Tiffanie BARBOSA wheeled patient to the ER. INTERVAL HISTORY: Patient was sent tot he ED during her previous visit due to low oxygenation. She is now on 2 L of oxygen at all times. She denies any breathing difficulty at this time. She is an 81 year old white female with a long-standing history of swelling in her lower extremities secondary to lymphedema. Approximately 2 years ago, she sustained a fracture to her right ankle, requiring surgical intervention. The operative site became infected, and required prolonged treatment and eventually a skin graft for complete wound closure. As a result, the patient's ambulatory capacity has been impaired. Furthermore, she is morbidly obese which limits her ambulation. The patient leads a relatively sedentary lifestyle and requires a walker for ambulation. She spends a great part of her day in a sitting position. She sleeps with the head of the bed elevated. Swelling in her lower extremities has been on-going for many years. The patient has undergone a battery of diagnostic tests. A non-invasive lower extremity arterial study in December 2016 reveals normal-ankle brachial indices, bilaterally. Venous doppler examination on 01/14 reveals incompetence of the great saphenous veins, bilaterally. There is also incompetence of the small saphenous veins, bilaterally and the right accessory saphenous vein. At present, she has three wounds, 2 on the right distal leg and the other is on the left posterior calf. The left leg wound has been present for over a year and was managed with silver alginate, NPWT, Santyl, serial sharp wound debridements, compression therapy using Surepress and compression pumps. Patient's wound cultures over the past several months have grown out Enterobacter cloacae, MRSA, coag-staph aureus, and in January grew out Pseudomonas, managed with oral antibiotics. IIn July of this year, she developed a new wound on the right lateral distal leg, then in July, she experience cellulitis of both legs requiring hospitalization. In the last year, she has been followed by Dr. Jaskaran Chance at the [facility]. It was felt that her home support system was inadequate and that she may not have the resources in her home environment to appropriately care for her needs. In this regard, a geriatric social work professor consultation had been recommended on several occassions, but patient apparently insisted on remaining in her home environment despite that there was thought that is may be less than optimal. The patient is here at the [facility] for a second opinion regarding management of the abovementioned bilateral lower extremity wounds. She offers no other complaints. She denies any fevers, chills, wound-related pain or other related symptoms. 11/25/17 Patient presents for follow-up. Overall, her lower extremity wounds are progressing favorably. One of the three is now healed. The remaining two show evidence of wound contraction and granulation tissue formation. To date, wounds have been managed with sharp debridement, collagen/anti-microbial dressing, compression therapy and nutritional support. She offers no new complaints. The edema in her lower extremities is well-controlled. She denies any fever, chills or other related symptoms. PAST MEDICAL HISTORY Diagnosis Date - Acquired hypothyroidism - Acute respiratory failure with hypoxia ([facility]) 09/30/2017 - Atrial fibrillation ([facility]) - CAD (coronary artery disease) Dr. Brenda Awan Hts, Promus element KIMMY LAD 11/20/2012, Stress test 04/2014 inferoapical reversible ischemia,small LVEF 48-50%, LHC 12/2014 L main-normal, LAD widely patent, Cx diffuse mild luminal irregularities with 80%focal stenosis distal, RCA dominant with minimal luminal irregularities. 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 - Pure hypercholesterolemia - Rheumatoid arthritis ([facility]) 2007 - Sleep apnea - Stented coronary artery 12/29/2016 PAST SURGICAL HISTORY Procedure Laterality Date - CC CORONARY STENT 11/20/2012 KIMMY LAD - CC CORONARY STENT 12/20/2014 KIMMY, Cfx - SECTION HX - COLONOSCOPY 06/10/2017 [facility], Nonspecific cecal ulcer - GASTRIC BYPASS HX 1986 - HERNIA REPAIR HX 1987; 1989 - PAST SURGICAL HISTORY OF Right 09/2015 right tibia fracture ORIF - PAST SURGICAL HISTORY OF Right 01/20/2016 Removal of hardware, right tibia - TOTAL KNEE REPLACEMENT Right 2003 [facility] Gen. - TOTAL KNEE REPLACEMENT Left 2004 [facility] Gen. MEDICATIONS ergocalciferol, vitamin D2, (DRISDOL) 50,000 unit capsule Take 1 capsule by mouth once each week. levothyroxine (LEVOXYL) 100 mcg tablet Take 1 tablet by mouth once daily. Take on empty stomach. For Thyroid. gabapentin (NEURONTIN) 300 mg capsule Take 1 capsule by mouth twice daily. metoprolol tartrate, short acting, (LOPRESSOR) 50 mg tablet TAKE ONE TABLET BY MOUTH TWICE DAILY furosemide (LASIX) 40 mg tablet Take 1 tablet by mouth twice daily. COMPOUNDED PRESCRIPTION Calcium Alginate 4x4 Dressing, change daily Dx: Blister left leg with infection S80.822A, L08.9; Lymphedema I89.0. Wound dimensions: 4 x 3 cm acetaminophen (TYLENOL) 500 mg tablet Take 1,000 mg by mouth every 8 hours as needed. aspirin, enteric coated (ASPIRIN, ENTERIC COATED) 81 mg EC tablet Take 81 mg by mouth once daily. warfarin (COUMADIN) 1 mg tablet Take 1 mg by mouth daily as directed. Take 1 tablet (1mg) by mouth once daily. Take with 1 x 3mg tablet to total 4mg by mouth once daily. warfarin (COUMADIN) 3 mg tablet Take 3 mg by mouth daily as directed. Take 1 tablet (3mg) by mouth once daily. Take with 1 x 1mg tablet to total 4mg by mouth once daily. lisinopril (ZESTRIL) 2.5 mg tablet Take 2.5 mg by mouth once daily. omeprazole (PRILOSEC) 20 mg capsule Take 20 mg by mouth once daily. spironolactone (ALDACTONE) 25 mg tablet Take 25 mg by mouth once daily. docusate sodium (COLACE) 100 mg capsule Take 100 mg by mouth once daily as needed. therapeutic multivitamin w/ iron (THERAGRAN-M) 9 mg iron-400 mcg tablet Take 1 tablet by mouth once daily. ALLERGIES No Known Allergies FAMILY HISTORY: Patient's father in his 70s with a history of arthritis. Her mother at the age of 90 with a history of arthritis. SOCIAL HISTORY Patient is a , lives alone, but has a son nearby. She has 6 children. Substance Use Topics - Smoking status: Passive Smoke Exposure - Never Smoker - Smokeless tobacco: Never Used Comment: smoked for 40 years - Alcohol use No REVIEW OF SYSTEM: PAIN ASSESSMENT: Negative for pain, history of chronic pain, or current treatment for a chronic pain condition. GENERAL: No weight loss, malaise or fevers HEENT: Negative for frequent or significant headaches, No changes in hearing or vision, no nose bleeds or other nasal problems NECK: Negative for lumps, goiter, pain and significant neck swelling RESPIRATORY: Negative for cough, hemoptysis, wheezing, positive for shortness of breath CARDIOVASCULAR: Negative for chest pain,palpitations; has chronic leg swelling GI: No nausea, vomiting, or diarrhea : No history of dysuria, frequency or incontinence MUSCULOSKELETAL: Negative for joint pain or swelling, back pain or muscle pain SKIN: As per HPI. Negative for any other lesions, rash, and itching PSYCH: Negative for sleep disturbance, mood disorder and recent psychosocial stressors HEMATOLOGY/LYMPHOLOGY: Negative for prolonged bleeding, bruising easily or swollen nodes ENDOCRINE: Negative for cold or heat intolerance, polyuria, polydipsia and goiter NEURO: No history of headaches, syncope, paralysis, seizures or tremors 12/19/17 1000 BP: 135/69 Pulse: 60 Resp: 16 Temp: 36.5 ?C (97.8 ?F) TempSrc: Oral SpO2: 94% Weight: 88.1 kg (194 lb 4.8 oz) PHYSICAL EXAMINATION: HEENT: PERRLA , sclera non-icteric, EOM intact, mucous membrane moist, pink and w/o lesions Comments: Neck: Supple, no bruit, no masses, trachea midline Comments: Chest: Lungs clear to auscultation, no accessory muscle use for respiration Comments: Heart: Regular rate/rhythm, normal S1,S2, no murmur, rubs or gallops Comments: Abdomen: Soft, non-tender, non-distended, + bowel sounds, no bruit, no organomegaly Comments: Extremity: Dorsalis pedis : Present (Y) Absent Diminished Doppler Posterior Tibialis: Present (Y) Absent Diminished Doppler Capillary Refill: ANDlt; 3 sec. (Y) ANDgt; 3 sec. ABIs: Right Left Rubor of Dependency: Negative (Y) Positive (N) [place] Examination: Comments: Measurements: Right Calf: 36.5 cm Right Ankle: 29 cm Left Calf: 37.5 cm Left Ankle: 24.2 cm Neuro: Alert ANDamp; oriented x3, AUTOMOTIVE SALES REPRESENTATIVE II-XII grossly intact, reflexes 2+ and symmetric, UE/LE 5/5 Comments: Skin: No rashes, no abnormal skin lesions Comments: See wound assessment Most recent diagnostic/laboratory data: 10/14/17 Hemoglobin A1C = 5.8 ?? 10/14/17 WBC 8.4, Hgb 12.2, Hct 38.5, PLT 211, Glu 91, BUN 24, Cr 0.88, Na 136, K 4.7, Cl 100, Albumin 3.6, Total protein 9.1 11/04/17 Venous Doppler Study Bilateral Lower Extremities IMPRESSION RIGHT SIDE - DEEP VEINS Negative for acute deep vein thrombosis in vessels visualized. Positive for valvular incompetency in the common femoral vein and femoral vein. Lymph node noted, within the groin, measuring 2.75 x 2.71 x .809cm. Cystic structure noted, within the popliteal fossa, measuring 2.17 x 2.67 x 1.49cm. ? RIGHT SIDE - SUPERFICIAL VEINS Positive for valvular incompetency in the great saphenous vein. REFLUX ONLY NOTED AT PROXIMAL THIGH. Vessel becomes tortuous branching from proximal to distal calf. The anterior lateral branch is negative for incompetency. Positive for valvular incompetency in the small saphenous vein. REFLUX ONLY NOTED AT DISTAL CALF. LEFT SIDE - DEEP VEINS Negative for acute deep vein thrombosis in vessels visualized. Positive for valvular incompetency in the femoral vein at the mid thigh. LEFT SIDE - SUPERFICIAL VEINS Positive for valvular incompetency in the great saphenous vein. REFLUX ONLY NOTED AT MID CALF. Negative for valvular incompetency in the small saphenous vein. No previous scans for comparison; however, chronic appearing superficial thrombophlebitis in the great saphenous vein at the distal calf. ? Technologist: Cleo Magdaleno RVT Ordering physician: Luis Simons ? Interpreting physician: Vishal Torres MD, RVT ? 01/24/17 Segmental arterial doppler study bilateral lower extremities Findings: NIMISHA 1.04 to the right and 1.0 to the left. Based upon the findings of this resting non-invasive lower extremity arterial study, arterial perfusion to ankle level appears to be relatively normal bilaterally. Triphasic and biphasic waveforms were noted at ankle level bilaterally. Resting ankle- brachial indices were bilaterally normal. ? 08/01/17 X-Ray 3-View Right Ankle Impression: There is prior open reduction internal fixation of the fibula which appears to be relatively intact allowing for advanced bony osteopenia. There is an irregular appearance of the lateral side distal tibia which is compatible with a prior fracture for which a new fracture on the lateral side is not excluded. The fracture could be potentially be associated with new trauma or potentially infection. Recommend consideration for follow- up study such as MRI or potentially three-phase bone scan. ? Flattened appearance of the arch of the foot with degenerative change of the tarsotarsal joints. ? Diffuse soft tissue swelling. ? Electronically Signed: Kelly Camarena MD at 20:15 EDT Tel , Service support , ? 10/14/17 XR 2 View Tib/Fib (Left) Findings: Left tibia-fibula: Tibial component of the joint prosthesis noted without associated abnormal lucency. No acute fracture or bony destruction. Right tibia and fibula: Plate and screw fixation remote distal fibular fracture. There is also remote tibial fracture with residual posterior angulation. Ghost tracks from previous tibial hardware. Tibial component of the joint prosthesis noted without associated abnormal lucency. No acute fracture or bony destruction. ? Stereotype Finisher: DWIGHT ? Transcribe Date/Time: Oct 14 2017 ?4:02P Dictated by : ZURDO SANTOS MD ? 10/14/17 XR 2 View Tib/Fib (Right) Findings: Left tibia-fibula: Tibial component of the joint prosthesis noted without associated abnormal lucency. No acute fracture or bony destruction. Right tibia and fibula: Plate and screw fixation remote distal fibular fracture. There is also remote tibial fracture with residual posterior angulation. Ghost tracks from previous tibial hardware. Tibial component of the joint prosthesis noted without associated abnormal lucency. No acute fracture or bony destruction. ? Stereotype Finisher: PSCVerónica ? Transcribe Date/Time: Oct 14 2017 ?4:02P Dictated by : ZURDO SANTOS MD ? 10/14/17 XR 2 View Tib/Fib (Left) Findings: Left tibia-fibula: Tibial component of the joint prosthesis noted without associated abnormal lucency. No acute fracture or bony destruction. Right tibia and fibula: Plate and screw fixation remote distal fibular fracture. There is also remote tibial fracture with residual posterior angulation. Ghost tracks from previous tibial hardware. Tibial component of the joint prosthesis noted without associated abnormal lucency. No acute fracture or bony destruction. WOUND ASSESSMENT: Wound Number: 1 First Assessed Date: 10/14/17 Pre-existing: YES Location: Leg Orientation: Right, Lateral and Distal Wound Etiology: Venous Depth of Tissue Injury (Non-pressure): Full Thickness Diabetic Wounds:N/A Pressure Injury: N/A Pre-Measurements Initial (First Visit): 3.5 cm length x 4.0 cm width x 0.5 cm depth Post Measurement (Current): 3.0 cm length x 3.7 cm width x 0.4 cm depth % Healing Rate/#Weeks: 37.5 % -- Week 5 Wound Bed (Post-debridement): 100% red % of Healthy tissue: Undermining: No Tunneling: No Tendon/bone exposed: NO Wound Edge/Margins: Irregular wound edges and Edge attached to base Periwound Tissue: Mild erythema, Wet (macerated), and Edema Exudate Amount:Moderate Consistency:Serous Odor:Minimal Infection/Critical Colonization Localized s/s: Non-healing and Increased exudate Systemic s/s: None Local/systemic Rx: None Wound Healing Status: Chronic Clinically presenting as: Stalled wound healing Current topical treatment: Iodoflex Wound Number: 2 First Assessed Date: 10/14/17 Pre-existing: YES Location: Leg Orientation: Right, Medial and Distal Wound Etiology: Surgical Depth of Tissue Injury (Non-pressure): Partial Thickness Diabetic Wounds:N/A Pressure Injury: N/A Pre-Measurements Initial (First Visit): 0.5 cm length x 0.4 cm width x 0.1 cm depth Post Measurement (Current): Epithelialized % Healing Rate/#Weeks: Week 1 -- Healed Wound Bed (Post-debridement): % of Healthy tissue: Undermining: No Tunneling: No Tendon/bone exposed: NO Wound Edge/Margins: Normal, intact, Irregular wound edges and Edge attached to base Periwound Tissue: Normal, intact,uninvolved tissue and Dry,flaky Exudate Amount: None Consistency: None Odor:None Infection/Critical Colonization Localized s/s: None and Edema Systemic s/s: None Local/systemic Rx: None Wound Healing Status: Chronic Clinically presenting as: Healed Current topical treatment: Iodoflex Wound Number: 3 First Assessed Date: 10/14/17 Pre-existing: YES Location: Leg (calf) Orientation: Left and Posterior Wound Etiology: Venous Depth of Tissue Injury (Non-pressure): Full Thickness Diabetic Wounds:N/A Pressure Injury: N/A Pre-Measurements Initial (First Visit): 1.3 cm length x 1.2 cm width x 0.1 cm depth Post Measurement (Current): Epithelialized % Healing Rate/#Weeks: 100 % -- Week 5 Wound Bed (Post-debridement): 100% [employer] % of Healthy tissue: Undermining: No Tunneling: No Tendon/bone exposed: NO Wound Edge/Margins: Well-defined wound edges and Edge attached to base Periwound Tissue: [employer], dry and intact, No fluctuance, induration or advancing soft tissue necrosis or ischemia Exudate: Nonr Consistency: None Odor:None Infection/Critical Colonization: N/A Localized s/s: None Systemic s/s: None Local/systemic Rx: None Wound Healing Status: Chronic Clinically presenting as: Healed Current topical treatment: Collagen IMPRESSION: 1. Non-healing right and left lower extremity wounds ( #1 and #3) in the setting of chronic venous insufficiency with secondary lymphedema. 2. Recurrent right medial leg wound s/p STSG in the setting of chronic edema. 3. Significant lower extremity edema secondary to underlying chronic venous insufficiency with secondary lymphedema. 4. Multiple risk factors or co-morbidities that may contribute to wound healing difficulties include hypothyroid disease, chronic atrial fibrillation on anticoagulation, coronary artery disease, COPD, dyslipidemia, hypertension, muscle weakness, osteoarthritis, GERD, depression and obesity. 5. Wound cultures positive for Enterobacter cloacae and Staph aureus most likely increased colonization. 6. Very good glucose control based on recent HgbA1c. 7. Zinc insufficiency ( precursor for collagen synthesis. 8. No significant arterial disease based on recent PVRs. 9. No evidence of osteomyelitis based on recent XRs. 10. Valvular incompetency involving the right common femoral vein , right femoral vein, right great saphenous vein, left femoral vein (mid thigh) and left great saphenous vein (mid thigh). TREATMENT PLAN: Debridement Type: Autolytic Enzymatic Mechanical Surgical Sharp (Y) Other: ?? Sharp debridement is performed to ANDquot;freshen upANDquot; the wound and stimulate the healing cascade. It allows the wound to progress from the inflammatory to the proliferative phase of wound healing. Wound Dressing: See Nursing Notes for details. . Topical Rx: Wounds each flushed with 10 cc of saline solution. Vitamin AANDamp;D ointment liberally applied to both lower legs. Saline moistened endoform applied to the wound bed. Equal parts of silvadene and Iodoflex on top of the endoform. Adaptic applied and secured with 1/2ANDquot; steri- strips. Site covered with 4x4's, and abd pad followed with a profore lite compression wrap. Home care to perform dressing change every 3 days. Compression therapy: Profore Multiple layer Application: A 3- layer system applied to the bilateral lower extremities. A layer of cast padding, crepe bandage, light compression bandage, followed with a layer of coban and stockinet from behind the toes to 1ANDquot; below the knee. Toes were warm and pink before and post application. + dorsal pedis pulse on palpation. It was demonstrated to the patient how to check for adequate circulation. If the patient exhibits a change in color to the extremity: change in temperature, increased pain, or the compression wrap becomes wet or to tight, the patient has been instructed to remove the wrap or go to the Emergency Department. Patient voices understanding with intent to comply. Pt instructed continue with leg elevation whenever possible to promote venous return to the heart. CirAids to be ordered for maintenance therapy. Use pneumatic compression pumps twice daily with 40-50 mmhg compression Systemic Rx: Doxycycline 100 mg by mouth twice daily x 14 days and zinc 220 mg by mouth daily x 14 days (Completed.) Nutritional Support: MVI, Zinc Supplement and Protein Supplement Patient is instructed to continue a healthy, well-balanced diet for nutritional support for optimal healing. Protein is the most important nutrient for wound healing. Eating adequate amounts of protein allows the body to create new cells and chemicals to heal the wound, and increases the body?s ability to fight infection. Eating high protein foods daily is recommended such as: lean meats, fish, poultry, cheese, milk, yogurt, eggs and legumes. Vitamins and minerals provide a full range of nutrients for wound healing. It can help ANDquot;jump startANDquot; the body's production of cells and chemicals needed for healing. Vitamins and minerals can be obtained through healthy foods in your diet and by taking a multiple vitamin supplement. Vitamin C is essential for collagen synthesis. Collagen and fibroblasts compose the basis for the structure of a new wound bed. Also, a deficiency of Vitamin C prolongs the healing time and contributes to reduced resistance to infection. Laboratory: We will obtain wound cultures to determine bacterial load. Results positive for few Enterobacter cloacae complex and many Staph aureus. No anaerobic organisms or fungal elements. Wound cultures are collected to assess level of bacterial bio-burden. Excessive bio-burden can result in inflammatory and proliferative phase stagnation as well as compromise of normal wound healing physiology. Bacterial proliferation, biofilm production, critical colonization and the development of resistant organism can lead to wound infection, wound deterioration and devastating tissue loss. Knowing the organism that populated the wound can help direct therapy, particularly anti-microbial dressing choices. Vascular Evaluation: PVRs for both lower extremities to evaluate for arterial insufficiency to see if poor circulation is an issue regarding her slow healing. Based on vascular studies, patient to see Dr. Lili Mcnair for further evaluation and management of venous disease (valvular incompetency). Follow-up is scheduled in 1 week, sooner with any concerns or worsening symptoms. Luis Simons, GROUND SYSTEMS ENGINEER Charge Capture: [id number] Tracy Alas MA, MA 12/19/2017 11:02 AM Signed Patient taken over to E.R for low SpO2. Patient felt more short of breath than usual. Nurse to nurse report given by ML to Echo Yeager RN. 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) [L97.912] Other Visit Diagnoses:Non-pressure chronic ulcer of left lower leg with fat layer exposed (HCC) [L97.922] Venous insufficiency (chronic) (peripheral) [I87.2] Prescriptions as of 12/19/2017 Sig: METOLAZONE 2.5 MG TABLET Take 1 tablet by mouth once d* WARFARIN 1 MG TABLET TAKE ONE TABLET BY MOUTH ONCE* SILVER SULFADIAZINE 1 % TOPIC* Apply to leg wounds as direct* ZINC SULFATE 220 MG TABLET Take 1 tablet by mouth once d* Patient not taking: Reported on 12/19/2017 ACETAMINOPHEN 500 MG TABLET Take 1,000 mg by mouth every * ASPIRIN 81 MG TABLET,DELAYED * Take 81 mg by mouth every jean* WARFARIN 1 MG TABLET Take 1 mg by mouth daily as d* WARFARIN 3 MG TABLET Take 3 mg by mouth daily as d* LISINOPRIL 2.5 MG TABLET Take 2.5 mg by mouth every ev* OMEPRAZOLE 20 MG CAPSULE,LUIS MIGUEL* Take 20 mg by mouth once oliver* SPIRONOLACTONE 25 MG TABLET Take 25 mg by mouth every jean* DOCUSATE SODIUM 100 MG CAPSULE Take 100 mg by mouth once yuly* MULTIVITAMIN-IRON 9 MG-FOLIC * Take 1 tablet by mouth once d* ERGOCALCIFEROL (VITAMIN D2) 5* Take 1 capsule by mouth once * LEVOTHYROXINE 100 MCG TABLET Take 1 tablet by mouth once d* GABAPENTIN 300 MG CAPSULE Take 1 capsule by mouth twice* X METOPROLOL TARTRATE 50 MG TAB* TAKE ONE TABLET BY MOUTH TWIC* FUROSEMIDE 40 MG TABLET Take 1 tablet by mouth twice * COMPOUNDED PRESCRIPTION Calcium Alginate 4x4 Dressing* Problem List As Of Date 12/19/2017 Noted Resolved Gastroesophageal reflux disease without esophag*INVALID FOR* Chronic atrial fibrillation (HCC) [I48.2] INVALID FOR* Priority: B More... Pure hypercholesterolemia [E78.00] Hypertension [I10] Priority: D More... Acquired hypothyroidism [E03.9] Priority: F More... CAD (coronary artery disease) [I25.10] More... Depressive disorder [F32.9] INVALID FOR*07/18/2017 Primary osteoarthritis involving multiple joint*INVALID FOR* Lymphedema of both lower extremities [I89.0] INVALID FOR* Priority: C More... Mouth dryness [R68.2] INVALID FOR* Muscular weakness [M62.81] INVALID FOR* Dorsalgia [M54.9] INVALID FOR* Stented coronary artery [Z95.5] INVALID FOR* Priority: A Gastric bypass status for obesity [Z98.84] INVALID FOR* Priority: C Bilateral leg ulcer (HCC) [L97.919, L97.929] INVALID FOR* Priority: E More... Polyneuropathy (HCC) [G62.9] INVALID FOR* Cecal ulcer [K63.3] INVALID FOR* Acute respiratory failure with hypoxia (HCC) [J*INVALID FOR*10/10/2017 Priority: Severe Anticoagulation goal of INR 2 to 3 [Z51.81, Z79*INVALID FOR* Priority: Mild More... ANASARCA/HYPOXIA 09/30/17 ADMISSION SUMMARY [Z9*INVALID FOR* Priority: Very Severe More... Skin bulla [R23.8] INVALID FOR* Priority: Mild More... Respiratory failure with hypoxia (HCC) [J96.91] INVALID FOR* Priority: Severe Heart failure with preserved ejection fraction *INVALID FOR* Priority: A More... Physical debility [R53.81] INVALID FOR* Priority: Moderate More... Requires continuous at home supplemental oxygen*INVALID FOR* More... Acute exacerbation of CHF (congestive heart mag*INVALID FOR* Visit Notes: >> Tracy Martinez) TORY Alas Mon Dec 19, 2017 11:00 AM Status: Signed Patient taken over to E.R for low SpO2. Patient felt more short of breath than usual. Nurse to nurse report given by ML to Echo Yeager RN. Encounter Status:Closed by LUIS SIMONS on 12/26/17 PROTIME Collected: 12/12/2017 Status: F Source: VI[facility] 11:00 AM [facility] REPOSITORY TYPE CODE TESTS RESULT OUT OF RANGE REFERENCE UNITS LAB PSEC 9.7-13.0 sec High PT Sec 27.7 LAB INR 0.9-1.3 High PT INR 2.9 Result Comment: Vitamin K Antagonist (VKA) Therapeutic Range: INR 2 to 3 (Target INR of 2.5) Note: For patients treated with VKA drugs, such as warfarin, the [place] [employer] 2012 Guideline recommends a therapeutic INR range of 2 to 3 (target INR of 2.5). This recommendation includes high-risk patients with antiphospholipid syndrome with previous arterial or venous thromboembolism, current-generation mechanical or bioprosthetic aortic heart valve replacement. Note: Patients with mechanical aortic valve replacement and additional risk factors for thromboembolic events (atrial fibrillation, previous thromboembolism, LV dysfunction, hypercoagulable conditions) or an older generation mechanical AVR (i.e., ball in-Cage) or any mechanical MVR should have a INR therapeutic range of 2.5 to 3.5 (target INR of 3). Shweta SALOMON, et al. Chest 2012, 141:7S-47S Genevieve ESTRADA et al. [facility] 2017, 70: 252-289 Performed By: #### PT #### [facility] [address] [place], [place] [address] BASIC METABOLIC PANL Collected: 12/12/2017 Status: F Source: VICTOR 11:00 AM [facility] REPOSITORY TYPE CODE TESTS RESULT OUT OF REFERENCE UNITS RANGE LAB GLU 74-99 mg/dL High Glucose 102 Result Comment: The [place] [employer] (ADA) provides guidance for cutoff values for fasting glucose and random glucose. The ADA defines fasting as no caloric intake for at least 8 hours. Fas ting plasma glucose results between 100 to 125 mg/dL indicate increased risk for diabetes (prediabetes). Fasting plasma glucose results greater than or equal to 126 mg/dL meet the criteria for diagnosis of diabetes. In the absence of unequivocal hyperglycemia, results should be confirmed by repeat testing. In a patient with classic symptoms of hyperglycemia or hyperglycemic crisis, random plasma glucose results greater than or equal to 200 mg/dL meet the criteria for diagnosis of diabetes. Reference: Standards of Medical Care in Diabetes 2016, [place] [employer]. Diabetes Care. 2016.39(Suppl 1). LAB BUN 7-21 mg/dL BUN High 23 LAB CRET 0.58-0.96 mg/dL Creatinine High 1.05 LAB NA 136-144 mmol/L Low Sodium 135 LAB K 3.7-5.1 mmol/L Potassium 4.1 LAB CL 97-105 mmol/L Chloride 98 LAB CO2 22-30 mmol/L CO2 28 LAB AGAP 9-18 mmol/L Anion Gap 9 LAB CA 8.5-10.2 mg/dL Calcium, Total 8.9 LAB GFRAA eGFR- Amer. >60 LAB GFRNAA . eGFR-All Other Races 50 Result Comment: eGFR (Estimated GFR) Units of measure: mL/min/1.73 meters squared eGFR is derived from the reexpressed MDRD Study equation using the following parameters: serum creatinine, age, gender and race. The creatinine assay has been calibrated to be traceable to IDMS. An eGFR <60 mL/min/1.73m2 for >3 months is consistent with chronic kidney disease. Refer to KDOQI guidelines for clinical interpretation. In patients with unstable renal function, e.g. those with acute kidney injury, the eGFR may not accurately reflect actual GFR. Performed By: #### BMP #### [facility] [address] [place], [place] [address] PROGRESS Observed: 12/12/2017 Status: COMPLETED Source: VICTOR 10:32 AM [facility] REPOSITORY HNO ID: [id number] Author: Ty Beckman Service: (none) Author Type: Physician Type: Progress Notes Filed: 12/12/2017 10:34 AM Note Text: Subjective: Patient presents to clinic c/o painful toenails. They state that the nails are especially painful with shoe gear and pressure. Patient states that nails 1-5 b/l are painful. Patient has b/l legs wrapped in profore. Has an appointment later in day at [place] clinic [place]. No other pedal complaints at this time. Patient states no change in medications or medical history since last visit. Objective: Vasc: there b/l lower extremity edema with profore intact Neuro: Protective sensation is decreased to the foot and toes when tested with the 5.07 SWM bilateral. The hallux is downgoing bilateral. Derm: Nails 1-5 b/l are painful, discolored-yellow, thick, crumbly, dystrophic and with subungal debris. Skin is dry and scaly, b/l Assessment: (B35.1) Onychomycosis (primary encounter diagnosis) (M79.675) Pain in toe of left foot (M79.674) Pain in toe of right foot Plan: Patient was seen and evaluated. Nails 1-5 bilateral were debrided in length and thickness. Patient is to RTC in 3-4 months. Ty Beckman DPM PROGRESS Observed: 12/12/2017 Status: COMPLETED Source: VICTOR 10:10 AM [facility] REPOSITORY HNO ID: [id number] Author: Sharlene Billingsley Ma Service: (none) Author Type: (none) Type: Progress Notes Filed: 12/12/2017 10:34 AM Note Text: Pt has layer compression on BLE. BLE being managed at [facility]. Sharlene Billingsley Ma PROGRESS Observed: 12/05/2017 Status: COMPLETED Source: VICTOR 11:15 AM [facility] REPOSITORY HNO ID: [id number] Author: Lili Mcnair Service: (none) Author Type: Physician Type: Progress Notes Filed: 12/12/2017 8:00 AM Note Text: VASCULAR SURGERY INITIAL CONSULT SERVICE DATE: 12/05/2017 SERVICE TIME: 11:16 AM PRIMARY CARE PHYSICIAN: Mani Newman MD REFERRING PROVIDER: Luis Simons CNP [address] [facility] [facility] [id number] Consult requested for an opinion regarding the evaluation and treatment of the above. My final impression and recommendations will be communicated back to the requesting physician by way of the shared medical record or letter via US mail. CHIEF COMPLAINT/HISTORY OF PRESENT ILLNESS: Chief Complaint: Chronic Venous Stasis History of Present Illness: Rosa Beltran is a 82 year old female referred by Marlen Simons CNP, for follow-up on chronic venous stasis and vascular studies. Ms. Beltran states she currently has 1 ulcer on her right leg, which is being treated at the [facility]. She reports past history of bilateral ulcerations. Ms. Beltran is a nonsmoker. She reports recent onset of right foot pain. She presents today upset and very tearful- states her son two days ago. PAST MEDICAL HISTORY Diagnosis Date - Acquired hypothyroidism - Acute respiratory failure with hypoxia (HCC) 09/30/2017 - Atrial fibrillation ([facility]) - CAD (coronary artery disease) Dr. Brenda Awan Hts, Promus element KIMMY LAD 11/20/2012, Stress test 04/2014 inferoapical reversible ischemia,small LVEF 48- 50%, LHC 12/2014 L main-normal, LAD widely patent, Cx diffuse mild luminal irregularities with 80%focal stenosis distal, RCA dominant with minimal luminal irregularities. 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 - TOTAL KNEE REPLACEMENT Left 2004 [facility]. No family history on file. 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 In [facility] for one year, and [facility] before that. Discharged home 2015. Lives alone in apartment under son's house. Homebound, does not drive. Uses a walker and wheelchair. No recent falls. MEDICATIONS/ALLERGIES Current Outpatient Prescriptions: metOLAzone (ZAROXOLYN) 5 mg tablet Take 1 tablet by mouth every morning for 7 days. Disp: 7 tablet Rfl: 0 warfarin (COUMADIN) 1 mg tablet TAKE ONE TABLET BY MOUTH ONCE DAILY OR DIRECTED WITH THE 3MG TABLETS Disp: 90 tablet Rfl: 1 silver sulfADIAZINE (SILVADENE) 1 % cream Apply to leg wounds as directed. Disp: 50 g Rfl: 1 Zinc Sulfate 220 mg tab Take 1 tablet by mouth once daily for 14 days. Disp: 14 tablet Rfl: 0 acetaminophen (TYLENOL) 500 mg tablet Take 1,000 mg by mouth every 8 hours as needed. Disp: Rfl: aspirin, enteric coated (ASPIRIN, ENTERIC COATED) 81 mg EC tablet Take 81 mg by mouth once daily. Disp: Rfl: warfarin (COUMADIN) 1 mg tablet Take 1 mg by mouth daily as directed. Take 1 tablet (1mg) by mouth once daily. Take with 1 x 3mg tablet to total 4mg by mouth once daily. Disp: Rfl: warfarin (COUMADIN) 3 mg tablet Take 3 mg by mouth daily as directed. Take 1 tablet (3mg) by mouth once daily. Take with 1 x 1mg tablet to total 4mg by mouth once daily. Disp: Rfl: lisinopril (ZESTRIL) 2.5 mg tablet Take 2.5 mg by mouth once daily. Disp: Rfl: omeprazole (PRILOSEC) 20 mg capsule Take 20 mg by mouth once daily. Disp: Rfl: spironolactone (ALDACTONE) 25 mg tablet Take 25 mg by mouth once daily. Disp: Rfl: docusate sodium (COLACE) 100 mg capsule Take 100 mg by mouth once daily as needed. Disp: Rfl: therapeutic multivitamin w/ iron (THERAGRAN-M) 9 mg iron-400 mcg tablet Take 1 tablet by mouth once daily. Disp: Rfl: ergocalciferol, vitamin D2, (DRISDOL) 50,000 unit capsule Take 1 capsule by mouth once each week. Disp: 4 capsule Rfl: 2 levothyroxine (LEVOXYL) 100 mcg tablet Take 1 tablet by mouth once daily. Take on empty stomach. For Thyroid. Disp: 30 tablet Rfl: 11 gabapentin (NEURONTIN) 300 mg capsule Take 1 capsule by mouth twice daily. Disp: 180 capsule Rfl: 1 metoprolol tartrate, short acting, (LOPRESSOR) 50 mg tablet TAKE ONE TABLET BY MOUTH TWICE DAILY Disp: 60 tablet Rfl: 11 furosemide (LASIX) 40 mg tablet Take 1 tablet by mouth twice daily. Disp: 180 tablet Rfl: 1 COMPOUNDED PRESCRIPTION Calcium Alginate 4x4 Dressing, change daily Dx: Blister left leg with infection S80.822A, L08.9; Lymphedema I89.0. Wound dimensions: 4 x 3 cm Disp: 14 Each Rfl: 0 No current facility-administered medications for this visit. ALLERGIES No Known Allergies REVIEW OF SYSTEMS Constitutional: No weight loss, malaise or fevers. HEENT: Negative for frequent or significant headaches, No changes in hearing or vision, no nose bleeds or other nasal problems Respiratory: Positive for shortness of breath on exertion and shortness of breath limiting daily activity Cardiovascular: Vascular: leg ulcerations, bilateral swelling. Gatrointestinal: Negative for abdominal discomfort, blood in stools or black stools or change in bowel habits Genitourinary: No history of dysuria, frequency, or incontinence and No difficulty urination, nocturia >1 times per night or hematuria Musculoskeletal: Negative for joint pain or swelling, back pain or muscle pain Endocrine: Negative for cold or heat intolerance, polyuria, polydipsia and goiter Hematology/Lymphatic: Negative for prolonged bleeding, bruising easily or swollen nodes Neurologic: No history or headaches, syncope, paralysis, seizures or tremors Integumentary: Positive for leg ulceration. PHYSICAL EXAM VITALS: There were no vitals taken for this visit. General: Alert and oriented Integumentary: Hyperpigmentation HEENT: No carotid bruits Cardiovascular: Normal S1 AND S2, no rubs, murmurs or gallops. No JVD., Pulse regular. Lungs: Normal breath sounds, no wheezes or crackles. Abdomen: Soft, non-tender, no rigidity. Extremities: Edema pitting Neurological: Normal cognition and motor skills. Vascular: Dorsalis Pedal Right: Normal - Left: Normal ASSESSMENT Venous insufficiency Secondary lymphedema Non healing ulceration Diagnostic tests reviewed for today's visit: Lower Extremity Arterial Physiology Study Bilateral/Complete Date: 11/04/2017 IMPRESSION ? RIGHT SIDE ? Resting right ankle brachial index: 1.12 Right toe brachial index: 0.46 ? Normal ankle brachial index at rest in the right leg. Abnormal toe brachial index at rest is evidence of peripheral artery disease. ? Right ankle: Normal at rest. ? Right small vessel disease versus vasoconstriction. ? LEFT SIDE ? Resting left ankle brachial index: 1.00 Left toe brachial index: 0.70 ? Normal ankle brachial index at rest in the left leg. Normal toe brachial index at rest in the left leg. ? Left ankle: Normal at rest. ? Left small vessel disease versus vasoconstriction. ? Venous Valvular Incompetency Bilateral/Complete Date: 11/04/2017 IMPRESSION ? RIGHT SIDE - DEEP VEINS Negative for acute deep vein thrombosis in vessels visualized. Positive for valvular incompetency in the common femoral vein and femoral vein. Lymph node noted, within the groin, measuring 2.75 x 2.71 x .809cm. Cystic structure noted, within the popliteal fossa, measuring 2.17 x 2.67 x 1.49cm. ? RIGHT SIDE - SUPERFICIAL VEINS Positive for valvular incompetency in the great saphenous vein. REFLUX ONLY NOTED AT PROXIMAL THIGH. Vessel becomes tortuous branching from proximal to distal calf. The anterior lateral branch is negative for incompetency. Positive for valvular incompetency in the small saphenous vein. REFLUX ONLY NOTED AT DISTAL CALF. LEFT SIDE - DEEP VEINS Negative for acute deep vein thrombosis in vessels visualized. Positive for valvular incompetency in the femoral vein at the mid thigh. LEFT SIDE - SUPERFICIAL VEINS Positive for valvular incompetency in the great saphenous vein. REFLUX ONLY NOTED AT MID CALF. Negative for valvular incompetency in the small saphenous vein. No previous scans for comparison; however, chronic appearing superficial thrombophlebitis in the great saphenous vein at the distal calf. PLAN/RECOMMENDATIONS Agree with compression wraps and elevation Continue local wound care May benefit from ultrasound guided sclerotherapy Will follow with [facility] and the [facility] SIGNATURE: Lili Mcnair DO PATIENT NAME: Rosa Beltran DATE: December 05, 2017 TIME: 11:15 AM PROGRESS Observed: 12/03/2017 Status: COMPLETED Source: VICTOR 8:24 AM [facility] REPOSITORY HNO ID: [id number] Author: Mani Newman Service: (none) Author Type: Physician Type: Progress Notes Filed: 12/03/2017 8:43 AM Note Text: This note was created using [employer]riter. Subjective Patient presents with: Recheck Rosa was her for follow up. Home Health was concerned about low grade fever, weight gain, and edema. She was just seen at the [facility] and her wounds were not infected. She complained of 2 days of sore throat, and a dry cough. She had no chills, no decubiti ulcers, no dysuria. ACTIVE PROBLEM LIST Gastroesophageal Reflux Disease Without Esophagitis Chronic Atrial Fibrillation (Hcc) Pure Hypercholesterolemia Hypertension Acquired Hypothyroidism Cad (Coronary Artery Disease) Primary Osteoarthritis Involving Multiple Joints Lymphedema of Both Lower Extremities Mouth Dryness Muscular Weakness Dorsalgia Stented Coronary Artery Gastric Bypass Status for Obesity Bilateral Leg Ulcer (Hcc) Polyneuropathy (Hcc) Cecal Ulcer Anticoagulation Goal of Inr 2 to 3 ANASARCA/HYPOXIA 09/30/17 ADMISSION SUMMARY Skin Bulla Respiratory Failure With Hypoxia (Hcc) Heart Failure With Preserved Ejection Fraction (Hcc) Physical Debility Requires Continuous At Home Supplemental Oxygen Current Outpatient Prescriptions: metOLAzone (ZAROXOLYN) 5 mg tablet Take 1 tablet by mouth every morning for 7 days. warfarin (COUMADIN) 1 mg tablet TAKE ONE TABLET BY MOUTH ONCE DAILY OR DIRECTED WITH THE 3MG TABLETS silver sulfADIAZINE (SILVADENE) 1 % cream Apply to leg wounds as directed. Zinc Sulfate 220 mg tab Take 1 tablet by mouth once daily for 14 days. acetaminophen (TYLENOL) 500 mg tablet Take 1,000 mg by mouth every 8 hours as needed. aspirin, enteric coated (ASPIRIN, ENTERIC COATED) 81 mg EC tablet Take 81 mg by mouth once daily. warfarin (COUMADIN) 1 mg tablet Take 1 mg by mouth daily as directed. Take 1 tablet (1mg) by mouth once daily. Take with 1 x 3mg tablet to total 4mg by mouth once daily. warfarin (COUMADIN) 3 mg tablet Take 3 mg by mouth daily as directed. Take 1 tablet (3mg) by mouth once daily. Take with 1 x 1mg tablet to total 4mg by mouth once daily. lisinopril (ZESTRIL) 2.5 mg tablet Take 2.5 mg by mouth once daily. omeprazole (PRILOSEC) 20 mg capsule Take 20 mg by mouth once daily. spironolactone (ALDACTONE) 25 mg tablet Take 25 mg by mouth once daily. docusate sodium (COLACE) 100 mg capsule Take 100 mg by mouth once daily as needed. therapeutic multivitamin w/ iron (THERAGRAN-M) 9 mg iron-400 mcg tablet Take 1 tablet by mouth once daily. ergocalciferol, vitamin D2, (DRISDOL) 50,000 unit capsule Take 1 capsule by mouth once each week. levothyroxine (LEVOXYL) 100 mcg tablet Take 1 tablet by mouth once daily. Take on empty stomach. For Thyroid. gabapentin (NEURONTIN) 300 mg capsule Take 1 capsule by mouth twice daily. metoprolol tartrate, short acting, (LOPRESSOR) 50 mg tablet TAKE ONE TABLET BY MOUTH TWICE DAILY furosemide (LASIX) 40 mg tablet Take 1 tablet by mouth twice daily. COMPOUNDED PRESCRIPTION Calcium Alginate 4x4 Dressing, change daily Dx: Blister left leg with infection S80.822A, L08.9; Lymphedema I89.0. Wound dimensions: 4 x 3 cm No current facility-administered medications for this visit. Review of Systems Constitutional: Positive for fever and unexpected weight change. Negative for chills. HENT: Positive for sore throat. Negative for ear pain and sinus pressure. Respiratory: Positive for cough and shortness of breath. Negative for chest tightness and wheezing. Cardiovascular: Positive for palpitations and leg swelling. Negative for chest pain. Gastrointestinal: Positive for nausea. Negative for abdominal pain, diarrhea and vomiting. Genitourinary: Negative for dysuria. Musculoskeletal: Positive for gait problem. Skin: Positive for wound. Neurological: Negative for headaches. Objective BP 110/84 (BP Site: Right Arm, BP Position: Sitting, BP Cuff Size: Large Adult) Pulse 60 Temp 36 ?C (96.8 ?F) (Temporal Artery) Resp 20 Wt 93.4 kg (206 lb) SpO2 94% BMI 35.36 kg/m2 Physical Exam Constitutional: No distress. Morbid obesity. Wheelchair bound. HENT: Right Ear: Tympanic membrane normal. No drainage. Left Ear: Tympanic membrane normal. No drainage. Nose: Nose normal. Right sinus exhibits no maxillary sinus tenderness and no frontal sinus tenderness. Left sinus exhibits no maxillary sinus tenderness and no frontal sinus tenderness. Mouth/Throat: Oropharynx is clear and moist. Mucous membranes are dry. Cardiovascular: S1 normal and S2 normal. An irregular rhythm present. Exam reveals no gallop. No murmur heard. Pulmonary/Chest: No accessory muscle usage. No respiratory distress. She has decreased breath sounds in the right lower field and the left lower field. She has no wheezes. She has rales in the right middle field, the right lower field, the left middle field and the left lower field. On oxygen via NC. Abdominal: There is no tenderness. Musculoskeletal: She exhibits edema. 2-3+ edema. Legs wrapped. Dressings dry. Lymphadenopathy: She has no cervical adenopathy. Neurological: She is alert. Moves all extremities. ASSESSMENT/PLAN: 1. Heart failure with preserved ejection fraction (HCC) - ICD9: 428.9, ICD10: I50.30 (primary diagnosis) - Cough likely from this. - METOLAZONE 5 MG TABLET. Take one(1) tablet daily x 7 days. Continue FUROSEMIDE. - XR CHEST 2V FRONTAL/LAT 2. Chronic respiratory failure with hypoxia (HCC) - ICD9: 518.83, 799.02, ICD10: J96.11 On O2 supplement. 3. Chronic atrial fibrillation (HCC) - ICD9: 427.31, ICD10: I48.2 Rate controlled. Anticoagulated. 4. Essential hypertension - ICD9: 401.9, ICD10: I10 - good control 5. Ulcers of both lower extremities, unspecified ulcer stage (HCC) - ICD9: 707.10, ICD10: L97.919, L97.929 Per [facility] Clinic. Mani Newman MD XR CHEST 2V FRONTAL/LAT Observed: 12/02/2017 Status: F Source: VICTOR 1:13 PM [facility] REPOSITORY * * *Final Report* * * DATE OF EXAM: Dec 02 2017 1:13PM WOX [id number] - XR CHEST 2V FRONTAL/LAT / PROCEDURE REASON: Unspecified diastolic (congestive) heart failure * * * * Physician Interpretation * * * * EXAMINATION: CHEST RADIOGRAPH (2 VIEW FRONTAL and LATERAL) Clinical History: Unspecified diastolic (congestive) heart failure M: XC2_4 Comparison: Comparison is made to prior chest dated 09/30/2017 RESULT: Lines, tubes, and devices: None. Lungs and pleura: There is interval diminishment in the bilateral airspace opacities especially within the mid and upper lung zones bilaterally. No significant pleural fluid is noted. No focal consolidation. Cardiomediastinal silhouette: The cardiac silhouette is enlarged and there is mild atherosclerotic change of the thoracic aorta which is unfolded, stable Other: The visualized bony structures are osteopenic with stable volume loss of T11. IMPRESSION: Interval improvement in the bilateral pulmonary infiltrates especially in the mid and upper lung zones, left more so than right. Stereotype Finisher: PSCB Transcribe Date/Time: Dec 02 2017 4:32P Dictated by : JIGNESH DAVIS MD This examination was interpreted and the report reviewed and electronically signed by: JIGNESH DAVIS MD on Dec 02 2017 4:34PM EST [id number] Observed: 12/02/2017 Status: COMPLETED Source: VICTOR 12:48 PM [facility] REPOSITORY HNO ID: [id number] Author: Crissy Archer Service: (none) Author Type: (none) Type: Progress Notes Filed: 12/02/2017 1:13 PM Note Text: Radiology Service Progress Note PATIENT NAME: Rosa Beltran DATE OF SERVICE: December 02, 2017 TIME: 12:48 PM PATIENT IDENTITY VERIFICATION COMPLETED USING TWO (2) METHODS: Patient confirmed name verbally and Date of . PATIENT GENDER DATA: Female. status: : No status: NO. PATIENT RELEVANT IMPLANT DATA REVIEWED: Not Applicable RADIOLOGY DEPARTMENT: General X-ray: Exam(s) Completed: Chest X-Ray PERIPHERAL IV DATA: Not applicable SIGNED BY: Crissy Archer December 02, 2017 12:48 PM OBSOLETE Observed: 11/29/2017 Status: COMPLETED Source: VICTOR 12:00 AM [facility] REPOSITORY Refill (INTMWS) ROSA BELTRAN ([id number]) 1935 F Date Time Provider Department 11/29/17 MANI NEWMAN INTMWS During your visit today, we recorded the following information about you: Carolina Vega Cma 11/30/2017 8:59 AM Signed Patient has been identified by name and date of : Yes Patient phones for refill(s): Pending Prescriptions Disp Refills WARFARIN 1 MG TABLET 90 tablet 3 Sig: TAKE ONE TABLET BY MOUTH ONCE DAILY OR DIRECTED WITH THE 3MG TABLETS MADISON: No Date of last office visit in primary care: 10/10/2017 Please advise. Thank you. Carolina Ny CNP 11/30/2017 2:42 PM Signed The following approved medication requests have been transmitted electronically. Signed Prescriptions Disp Refills warfarin (COUMADIN) 1 mg tablet 90 tablet 1 Sig: TAKE ONE TABLET BY MOUTH ONCE DAILY OR DIRECTED WITH THE 3MG TABLETS MADISON: No Authorizing Provider: JINA NY (LOI) Jina Ny CNP Allergies As of Date: 11/29/2017 (No Known Allergies) Date Reviewed: 11/25/2017 Reviewed by: Peter Jason MA - Fully Assessed Reason for Visit: Refill Request [94] Order(s):warfarin (COUMADIN) 1 mg tabletTAKE ONE TABLET BY MOUTH ONCE DAILY OR DIRECTED WITH THE 3MG TABLETSDisp: 90 tabletRfl: 1 Prescriptions as of 11/29/2017 Sig: WARFARIN 1 MG TABLET TAKE ONE TABLET BY MOUTH ONCE* SILVER SULFADIAZINE 1 % TOPIC* Apply to leg wounds as direct* ACETAMINOPHEN 500 MG TABLET Take 1,000 mg by mouth every * ASPIRIN 81 MG TABLET,DELAYED * Take 81 mg by mouth once oliver* WARFARIN 1 MG TABLET Take 1 mg by mouth daily as d* WARFARIN 3 MG TABLET Take 3 mg by mouth daily as d* LISINOPRIL 2.5 MG TABLET Take 2.5 mg by mouth once yuly* OMEPRAZOLE 20 MG CAPSULE,LUIS MIGUEL* Take 20 mg by mouth once oliver* SPIRONOLACTONE 25 MG TABLET Take 25 mg by mouth once oliver* DOCUSATE SODIUM 100 MG CAPSULE Take 100 mg by mouth once yuly* MULTIVITAMIN-IRON 9 MG-FOLIC * Take 1 tablet by mouth once d* ERGOCALCIFEROL (VITAMIN D2) 5* Take 1 capsule by mouth once * LEVOTHYROXINE 100 MCG TABLET Take 1 tablet by mouth once d* GABAPENTIN 300 MG CAPSULE Take 1 capsule by mouth twice* METOPROLOL TARTRATE 50 MG TAB* TAKE ONE TABLET BY MOUTH TWIC* FUROSEMIDE 40 MG TABLET Take 1 tablet by mouth twice * COMPOUNDED PRESCRIPTION Calcium Alginate 4x4 Dressing* Problem List As Of Date 11/29/2017 Noted Resolved Gastroesophageal reflux disease without esophag*INVALID FOR* Chronic atrial fibrillation (HCC) [I48.2] INVALID FOR* Priority: B Pure hypercholesterolemia [E78.00] Hypertension [I10] Priority: D More... Acquired hypothyroidism [E03.9] CAD (coronary artery disease) [I25.10] More... Depressive disorder [F32.9] INVALID FOR*07/18/2017 Primary osteoarthritis involving multiple joint*INVALID FOR* Lymphedema of both lower extremities [I89.0] INVALID FOR* Mouth dryness [R68.2] INVALID FOR* Muscular weakness [M62.81] INVALID FOR* Dorsalgia [M54.9] INVALID FOR* Stented coronary artery [Z95.5] INVALID FOR* Priority: A Gastric bypass status for obesity [Z98.84] INVALID FOR* Priority: C Bilateral leg ulcer (HCC) [L97.919, L97.929] INVALID FOR* Priority: E More... Polyneuropathy (HCC) [G62.9] INVALID FOR* Cecal ulcer [K63.3] INVALID FOR* Acute respiratory failure with hypoxia (HCC) [J*INVALID FOR*10/10/2017 Priority: Severe Anticoagulation goal of INR 2 to 3 [Z51.81, Z79*INVALID FOR* Priority: Mild More... ANASARCA/HYPOXIA 09/30/17 ADMISSION SUMMARY [Z9*INVALID FOR* Priority: Very Severe More... Skin bulla [R23.8] INVALID FOR* Priority: Mild More... Respiratory failure with hypoxia (HCC) [J96.91] INVALID FOR* Priority: Severe Heart failure with preserved ejection fraction *INVALID FOR* Priority: A More... Physical debility [R53.81] INVALID FOR* Priority: Moderate More... Requires continuous at home supplemental oxygen*INVALID FOR* More... Prescriptions ordered this encounter Disp Refills Start End WARFARIN 1 MG TABLET 90 t* 1 11/30/2017 Cmt: Please consider 90 day supplies to promote better adherence Sig: TAKE ONE TABLET BY MOUTH ONCE DAILY OR DIRECTED WITH THE 3MG TABLETS Encounter Status:Closed by JINA NY CNP on 11/30/17 PROTIME Collected: 11/25/2017 Status: F Source: VICTOR 12:27 PM [facility] [place] REPOSITORY TYPE CODE TESTS RESULT OUT OF RANGE REFERENCE UNITS LAB PSEC 9.7-13.0 sec High PT Sec 41.9 LAB INR 0.9-1.3 High PT INR 4.4 Result Comment: Vitamin K Antagonist (VKA) Therapeutic Range: INR 2 to 3 (Target INR of 2.5) Note: For patients treated with VKA drugs, such as warfarin, the [employer] 2012 Guideline recommends a therapeutic INR range of 2 to 3 (target INR of 2.5). This recommendation includes high-risk patients with antiphospholipid syndrome with previous arterial or venous thromboembolism, current-generation mechanical or bioprosthetic aortic heart valve replacement. Note: Patients with mechanical aortic valve replacement and additional risk factors for thromboembolic events (atrial fibrillation, previous thromboembolism, LV dysfunction, hypercoagulable conditions) or an older generation mechanical AVR (i.e., ball in-Cage) or any mechanical MVR should have a INR therapeutic range of 2.5 to 3.5 (target INR of 3). Guyatt GH, et al. Chest 2012, 141:7S-47S Genevieve ESTRADA, et al. [facility] 2017, 70: [phone] Performed By: #### PT #### [facility] [address] [place], [place] [address] PROGRESS Observed: 11/25/2017 Status: COMPLETED Source: VICTOR 11:30 AM CLINIC OTHER CAMPUS REPOSITORY HNO ID: [id number] Author: Luis Lyles (Loi) LOI Simons Service: (none) Author Type: Nurse Practitioner Type: Progress Notes Filed: 11/29/2017 2:26 PM Note Text: DATE OF VISIT: 11/25/2017 REASON FOR VISIT: Non-healing lower extremity wound. HISTORY OF PRESENT ILLNESS: Rosa Beltran is a 81 year old female who presents to the [facility] for further evaluation and management of a non-healing leg wound. She has a past medical history significant for atrial fibrillation on Coumadin, coronary artery disease,?COPD, hypertension, dyslipidemia and CHF.?Patient has felt mildly short of breath over the past month. ?Increase with exertion and lying flat. She is on 40 mg of Lasix twice a day. She still is urinating appropriately. She has not had any chest pain or palpitations. ?Fever, chills, or sweats. ?No productive cough. ?No wheezing. Upon taking patients vitals, her SPO2 level was from 76% - 85%. Patient stated she had shortness of breath. She was unable to finish her sentences without catching her breath. The tips of her fingers were cyanotic. Patient was sent to the ER for further evaluation. Tiffanie BARBOSA wheeled patient to the ER. INTERVAL HISTORY: Patient was sent tot he ED during her previous visit due to low oxygenation. She is now on 2 L of oxygen at all times. She denies any breathing difficulty at this time. She is an 81 year old white female with a long-standing history of swelling in her lower extremities secondary to lymphedema. Approximately 2 years ago, she sustained a fracture to her right ankle, requiring surgical intervention. The operative site became infected, and required prolonged treatment and eventually a skin graft for complete wound closure. As a result, the patient's ambulatory capacity has been impaired. Furthermore, she is morbidly obese which limits her ambulation. The patient leads a relatively sedentary lifestyle and requires a walker for ambulation. She spends a great part of her day in a sitting position. She sleeps with the head of the bed elevated. Swelling in her lower extremities has been on-going for many years. The patient has undergone a battery of diagnostic tests. A non-invasive lower extremity arterial study in December 2016 reveals normal- ankle brachial indices, bilaterally. Venous doppler examination on 01/14 reveals incompetence of the great saphenous veins, bilaterally. There is also incompetence of the small saphenous veins, bilaterally and the right accessory saphenous vein. At present, she has three wounds, 2 on the right distal leg and the other is on the left posterior calf. The left leg wound has been present for over a year and was managed with silver alginate, NPWT, Santyl, serial sharp wound debridements, compression therapy using Surepress and compression pumps. Patient's wound cultures over the past several months have grown out Enterobacter cloacae, MRSA, coag-staph aureus, and in January grew out Pseudomonas, managed with oral antibiotics. IIn July of this year, she developed a new wound on the right lateral distal leg, then in July, she experience cellulitis of both legs requiring hospitalization. In the last year, she has been followed by Dr. Jaskaran Chance at the [facility]. It was felt that her home support system was inadequate and that she may not have the resources in her home environment to appropriately care for her needs. In this regard, a geriatric social work professor consultation had been recommended on several occassions, but patient apparently insisted on remaining in her home environment despite that there was thought that is may be less than optimal. The patient is here at the [facility] for a second opinion regarding management of the abovementioned bilateral lower extremity wounds. She offers no other complaints. She denies any fevers, chills, wound-related pain or other related symptoms. 11/25/17 Patient presents for follow-up. Overall, her lower extremity wounds are progressing favorably. One of the three is now healed. The remaining two show evidence of wound contraction and granulation tissue formation. To date, wounds have been managed with sharp debridement, collagen/anti-microbial dressing, compression therapy and nutritional support. She offers no new complaints. The edema in her lower extremities is well-controlled. She denies any fever, chills or other related symptoms. PAST MEDICAL HISTORY Diagnosis Date - Acquired hypothyroidism - Acute respiratory failure with hypoxia (HCC) 09/30/2017 - Atrial fibrillation ([facility]) - CAD (coronary artery disease) Dr. Brenda Awan Hts, Promus element KIMMY LAD 11/20/2012, Stress test 04/2014 inferoapical reversible ischemia,small LVEF 48- 50%, LHC 12/2014 L main-normal, LAD widely patent, Cx diffuse mild luminal irregularities with 80%focal stenosis distal, RCA dominant with minimal luminal irregularities. 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 - Pure hypercholesterolemia - Rheumatoid arthritis ([facility]) 2007 - Sleep apnea - Stented coronary artery 12/29/2016 PAST SURGICAL HISTORY Procedure Laterality Date - CC CORONARY STENT 11/20/2012 KIMMY LAD - CC CORONARY STENT 12/20/2014 KIMMY, Cfx - SECTION HX - COLONOSCOPY 06/10/2017 [facility], Nonspecific cecal ulcer - GASTRIC BYPASS HX 1986 - HERNIA REPAIR HX 1987; 1989 - PAST SURGICAL HISTORY OF Right 09/2015 right tibia fracture ORIF - PAST SURGICAL HISTORY OF Right 01/20/2016 Removal of hardware, right tibia - TOTAL KNEE REPLACEMENT Right 2003 [facility] Gen. - TOTAL KNEE REPLACEMENT Left 2004 [facility] Gen. MEDICATIONS ergocalciferol, vitamin D2, (DRISDOL) 50,000 unit capsule Take 1 capsule by mouth once each week. levothyroxine (LEVOXYL) 100 mcg tablet Take 1 tablet by mouth once daily. Take on empty stomach. For Thyroid. gabapentin (NEURONTIN) 300 mg capsule Take 1 capsule by mouth twice daily. metoprolol tartrate, short acting, (LOPRESSOR) 50 mg tablet TAKE ONE TABLET BY MOUTH TWICE DAILY furosemide (LASIX) 40 mg tablet Take 1 tablet by mouth twice daily. COMPOUNDED PRESCRIPTION Calcium Alginate 4x4 Dressing, change daily Dx: Blister left leg with infection S80.822A, L08.9; Lymphedema I89.0. Wound dimensions: 4 x 3 cm acetaminophen (TYLENOL) 500 mg tablet Take 1,000 mg by mouth every 8 hours as needed. aspirin, enteric coated (ASPIRIN, ENTERIC COATED) 81 mg EC tablet Take 81 mg by mouth once daily. warfarin (COUMADIN) 1 mg tablet Take 1 mg by mouth daily as directed. Take 1 tablet (1mg) by mouth once daily. Take with 1 x 3mg tablet to total 4mg by mouth once daily. warfarin (COUMADIN) 3 mg tablet Take 3 mg by mouth daily as directed. Take 1 tablet (3mg) by mouth once daily. Take with 1 x 1mg tablet to total 4mg by mouth once daily. lisinopril (ZESTRIL) 2.5 mg tablet Take 2.5 mg by mouth once daily. omeprazole (PRILOSEC) 20 mg capsule Take 20 mg by mouth once daily. spironolactone (ALDACTONE) 25 mg tablet Take 25 mg by mouth once daily. docusate sodium (COLACE) 100 mg capsule Take 100 mg by mouth once daily as needed. therapeutic multivitamin w/ iron (THERAGRAN-M) 9 mg iron-400 mcg tablet Take 1 tablet by mouth once daily. ALLERGIES No Known Allergies FAMILY HISTORY: Patient's father in his 70s with a history of arthritis. Her mother at the age of 90 with a history of arthritis. SOCIAL HISTORY Patient is a , lives alone, but has a son nearby. She has 6 children. Substance Use Topics - Smoking status: Passive Smoke Exposure - Never Smoker - Smokeless tobacco: Never Used Comment: smoked for 40 years - Alcohol use No REVIEW OF SYSTEM: PAIN ASSESSMENT: Negative for pain, history of chronic pain, or current treatment for a chronic pain condition. GENERAL: No weight loss, malaise or fevers HEENT: Negative for frequent or significant headaches, No changes in hearing or vision, no nose bleeds or other nasal problems NECK: Negative for lumps, goiter, pain and significant neck swelling RESPIRATORY: Negative for cough, hemoptysis, wheezing, positive for shortness of breath CARDIOVASCULAR: Negative for chest pain,palpitations; has chronic leg swelling GI: No nausea, vomiting, or diarrhea : No history of dysuria, frequency or incontinence MUSCULOSKELETAL: Negative for joint pain or swelling, back pain or muscle pain SKIN: As per HPI. Negative for any other lesions, rash, and itching PSYCH: Negative for sleep disturbance, mood disorder and recent psychosocial stressors HEMATOLOGY/LYMPHOLOGY: Negative for prolonged bleeding, bruising easily or swollen nodes ENDOCRINE: Negative for cold or heat intolerance, polyuria, polydipsia and goiter NEURO: No history of headaches, syncope, paralysis, seizures or tremors 11/25/17 1130 BP: 135/69 Pulse: 60 Resp: 16 Temp: 36.5 ?C (97.8 ?F) TempSrc: Oral SpO2: 94% Weight: 88.1 kg (194 lb 4.8 oz) PHYSICAL EXAMINATION: HEENT: PERRLA , sclera non-icteric, EOM intact, mucous membrane moist, pink and w/o lesions Comments: Neck: Supple, no bruit, no masses, trachea midline Comments: Chest: Lungs clear to auscultation, no accessory muscle use for respiration Comments: Heart: Regular rate/rhythm, normal S1,S2, no murmur, rubs or gallops Comments: Abdomen: Soft, non-tender, non-distended, + bowel sounds, no bruit, no organomegaly Comments: Extremity: Dorsalis pedis : Present (Y) Absent Diminished Doppler Posterior Tibialis: Present (Y) Absent Diminished Doppler Capillary Refill: < 3 sec. (Y) > 3 sec. 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 10/14/17 WBC 8.4, Hgb 12.2, Hct 38.5, PLT 211, Glu 91, BUN 24, Cr 0.88, Na 136, K 4.7, Cl 100, Albumin 3.6, Total protein 9.1 11/04/17 Venous Doppler Study Bilateral Lower Extremities IMPRESSION RIGHT SIDE - DEEP VEINS Negative for acute deep vein thrombosis in vessels visualized. Positive for valvular incompetency in the common femoral vein and femoral vein. Lymph node noted, within the groin, measuring 2.75 x 2.71 x .809cm. Cystic structure noted, within the popliteal fossa, measuring 2.17 x 2.67 x 1.49cm. ? RIGHT SIDE - SUPERFICIAL VEINS Positive for valvular incompetency in the great saphenous vein. REFLUX ONLY NOTED AT PROXIMAL THIGH. Vessel becomes tortuous branching from proximal to distal calf. The anterior lateral branch is negative for incompetency. Positive for valvular incompetency in the small saphenous vein. REFLUX ONLY NOTED AT DISTAL CALF. LEFT SIDE - DEEP VEINS Negative for acute deep vein thrombosis in vessels visualized. Positive for valvular incompetency in the femoral vein at the mid thigh. LEFT SIDE - SUPERFICIAL VEINS Positive for valvular incompetency in the great saphenous vein. REFLUX ONLY NOTED AT MID CALF. Negative for valvular incompetency in the small saphenous vein. No previous scans for comparison; however, chronic appearing superficial thrombophlebitis in the great saphenous vein at the distal calf. ? Technologist: Cleo HOBBST Ordering physician: Luis Simons ? Interpreting physician: Vishal Torres MD, RVT ? 01/24/17 Segmental arterial doppler study bilateral lower extremities Findings: NIMISHA 1.04 to the right and 1.0 to the left. Based upon the findings of this resting non-invasive lower extremity arterial study, arterial perfusion to ankle level appears to be relatively normal bilaterally. Triphasic and biphasic waveforms were noted at ankle level bilaterally. Resting ankle-brachial indices were bilaterally normal. ? 08/01/17 X-Ray 3-View Right Ankle Impression: There is prior open reduction internal fixation of the fibula which appears to be relatively intact allowing for advanced bony osteopenia. There is an irregular appearance of the lateral side distal tibia which is compatible with a prior fracture for which a new fracture on the lateral side is not excluded. The fracture could be potentially be associated with new trauma or potentially infection. Recommend consideration for follow-up study such as MRI or potentially three-phase bone scan. ? Flattened appearance of the arch of the foot with degenerative change of the tarsotarsal joints. ? Diffuse soft tissue swelling. ? Electronically Signed: Kelly Camarena MD at 20:15 EDT Tel , Service support , ? 10/14/17 XR 2 View Tib/Fib (Left) Findings: Left tibia-fibula: Tibial component of the joint prosthesis noted without associated abnormal lucency. No acute fracture or bony destruction. Right tibia and fibula: Plate and screw fixation remote distal fibular fracture. There is also remote tibial fracture with residual posterior angulation. Ghost tracks from previous tibial hardware. Tibial component of the joint prosthesis noted without associated abnormal lucency. No acute fracture or bony destruction. ? Stereotype Finisher: DWIGHT ? Transcribe Date/Time: Oct 14 2017 ?4:02P Dictated by : ZURDO SANTOS MD ? 10/14/17 XR 2 View Tib/Fib (Right) Findings: Left tibia-fibula: Tibial component of the joint prosthesis noted without associated abnormal lucency. No acute fracture or bony destruction. Right tibia and fibula: Plate and screw fixation remote distal fibular fracture. There is also remote tibial fracture with residual posterior angulation. Ghost tracks from previous tibial hardware. Tibial component of the joint prosthesis noted without associated abnormal lucency. No acute fracture or bony destruction. ? Stereotype Finisher: DWIGHT ? Transcribe Date/Time: Oct 14 2017 ?4:02P Dictated by : ZURDO SANTOS MD ? 10/14/17 XR 2 View Tib/Fib (Left) Findings: Left tibia-fibula: Tibial component of the joint prosthesis noted without associated abnormal lucency. No acute fracture or bony destruction. Right tibia and fibula: Plate and screw fixation remote distal fibular fracture. There is also remote tibial fracture with residual posterior angulation. Ghost tracks from previous tibial hardware. Tibial component of the joint prosthesis noted without associated abnormal lucency. No acute fracture or bony destruction. WOUND ASSESSMENT: Wound Number: 1 First Assessed Date: 10/14/17 Pre-existing: YES Location: Leg Orientation: Right, Lateral and Distal Wound Etiology: Venous Depth of Tissue Injury (Non-pressure): Full Thickness Diabetic Wounds:N/A Pressure Injury: N/A Pre-Measurements Initial (First Visit): 3.5 cm length x 4.0 cm width x 0.5 cm depth Post Measurement (Current): 3.0 cm length x 3.7 cm width x 0.4 cm depth % Healing Rate/#Weeks: 37.5 % -- Week 5 Wound Bed (Post-debridement): 100% red % of Healthy tissue: Undermining: No Tunneling: No Tendon/bone exposed: NO Wound Edge/Margins: Irregular wound edges and Edge attached to base Periwound Tissue: Mild erythema, Wet (macerated), and Edema Exudate Amount:Moderate Consistency:Serous Odor:Minimal Infection/Critical Colonization Localized s/s: Non-healing and Increased exudate Systemic s/s: None Local/systemic Rx: None Wound Healing Status: Chronic Clinically presenting as: Stalled wound healing Current topical treatment: Iodoflex Wound Number: 2 First Assessed Date: 10/14/17 Pre-existing: YES Location: Leg Orientation: Right, Medial and Distal Wound Etiology: Surgical Depth of Tissue Injury (Non-pressure): Partial Thickness Diabetic Wounds:N/A Pressure Injury: N/A Pre-Measurements Initial (First Visit): 0.5 cm length x 0.4 cm width x 0.1 cm depth Post Measurement (Current): Epithelialized % Healing Rate/#Weeks: Week 1 -- Healed Wound Bed (Post-debridement): % of Healthy tissue: Undermining: No Tunneling: No Tendon/bone exposed: NO Wound Edge/Margins: Normal, intact, Irregular wound edges and Edge attached to base Periwound Tissue: Normal, intact,uninvolved tissue and Dry,flaky Exudate Amount: None Consistency: None Odor:None Infection/Critical Colonization Localized s/s: None and Edema Systemic s/s: None Local/systemic Rx: None Wound Healing Status: Chronic Clinically presenting as: Healed Current topical treatment: Iodoflex Wound Number: 3 First Assessed Date: 10/14/17 Pre-existing: YES Location: Leg (calf) Orientation: Left and Posterior Wound Etiology: Venous Depth of Tissue Injury (Non-pressure): Full Thickness Diabetic Wounds:N/A Pressure Injury: N/A Pre-Measurements Initial (First Visit): 1.3 cm length x 1.2 cm width x 0.1 cm depth Post Measurement (Current): Epithelialized % Healing Rate/#Weeks: 100 % -- Week 5 Wound Bed (Post-debridement): 100% [employer] % of Healthy tissue: Undermining: No Tunneling: No Tendon/bone exposed: NO Wound Edge/Margins: Well-defined wound edges and Edge attached to base Periwound Tissue: [employer], dry and intact, No fluctuance, induration or advancing soft tissue necrosis or ischemia Exudate: Nonr Consistency: None Odor:None Infection/Critical Colonization: N/A Localized s/s: None Systemic s/s: None Local/systemic Rx: None Wound Healing Status: Chronic Clinically presenting as: Healed Current topical treatment: Collagen IMPRESSION: 1. Non-healing right and left lower extremity wounds ( #1 and #3) in the setting of chronic venous insufficiency with secondary lymphedema. 2. Recurrent right medial leg wound s/p STSG in the setting of chronic edema. 3. Significant lower extremity edema secondary to underlying chronic venous insufficiency with secondary lymphedema. 4. Multiple risk factors or co-morbidities that may contribute to wound healing difficulties include hypothyroid disease, chronic atrial fibrillation on anticoagulation, coronary artery disease, COPD, dyslipidemia, hypertension, muscle weakness, osteoarthritis, GERD, depression and obesity. 5. Wound cultures positive for Enterobacter cloacae and Staph aureus most likely increased colonization. 6. Very good glucose control based on recent HgbA1c. 7. Zinc insufficiency ( precursor for collagen synthesis. 8. No significant arterial disease based on recent PVRs. 9. No evidence of osteomyelitis based on recent XRs. 10. Valvular incompetency involving the right common femoral vein , right femoral vein, right great saphenous vein, left femoral vein (mid thigh) and left great saphenous vein (mid thigh). TREATMENT PLAN: Debridement Type: Autolytic Enzymatic Mechanical Surgical Sharp (Y) Other: ?? Sharp debridement is performed to freshen up the wound and stimulate the healing cascade. It allows the wound to progress from the inflammatory to the proliferative phase of wound healing. Wound Dressing: See Nursing Notes for details. . Topical Rx: Wounds each flushed with 10 cc of saline solution. Vitamin AANDD ointment liberally applied to both lower legs. Saline moistened endoform applied to the wound bed. Equal parts of silvadene and Iodoflex on top of the endoform. Adaptic applied and secured with 1/2 steri-strips. Site covered with 4x4's, and abd pad followed with a profore lite compression wrap. Home care to perform dressing change every 3 days. Compression therapy: Profore Multiple layer Application: A 3- layer system applied to the bilateral lower extremities. A layer of cast padding, crepe bandage, light compression bandage, followed with a layer of coban and stockinet from behind the toes to 1 below the knee. Toes were warm and pink before and post application. + dorsal pedis pulse on palpation. It was demonstrated to the patient how to check for adequate circulation. If the patient exhibits a change in color to the extremity: change in temperature, increased pain, or the compression wrap becomes wet or to tight, the patient has been instructed to remove the wrap or go to the Emergency Department. Patient voices understanding with intent to comply. Pt instructed continue with leg elevation whenever possible to promote venous return to the heart. CirAids to be ordered for maintenance therapy. Use pneumatic compression pumps twice daily with 40-50 mmhg compression Systemic Rx: Doxycycline 100 mg by mouth twice daily x 14 days and zinc 220 mg by mouth daily x 14 days (Completed.) Nutritional Support: MVI, Zinc Supplement and Protein Supplement Patient is instructed to continue a healthy, well-balanced diet for nutritional support for optimal healing. Protein is the most important nutrient for wound healing. Eating adequate amounts of protein allows the body to create new cells and chemicals to heal the wound, and increases the body?s ability to fight infection. Eating high protein foods daily is recommended such as: lean meats, fish, poultry, cheese, milk, yogurt, eggs and legumes. Vitamins and minerals provide a full range of nutrients for wound healing. It can help jump start the body's production of cells and chemicals needed for healing. Vitamins and minerals can be obtained through healthy foods in your diet and by taking a multiple vitamin supplement. Vitamin C is essential for collagen synthesis. Collagen and fibroblasts compose the basis for the structure of a new wound bed. Also, a deficiency of Vitamin C prolongs the healing time and contributes to reduced resistance to infection. Laboratory: We will obtain wound cultures to determine bacterial load. Results positive for few Enterobacter cloacae complex and many Staph aureus. No anaerobic organisms or fungal elements. Wound cultures are collected to assess level of bacterial bio-burden. Excessive bio-burden can result in inflammatory and proliferative phase stagnation as well as compromise of normal wound healing physiology. Bacterial proliferation, biofilm production, critical colonization and the development of resistant organism can lead to wound infection, wound deterioration and devastating tissue loss. Knowing the organism that populated the wound can help direct therapy, particularly anti-microbial dressing choices. Vascular Evaluation: PVRs for both lower extremities to evaluate for arterial insufficiency to see if poor circulation is an issue regarding her slow healing. Based on vascular studies, patient to see Dr. Lili Mcnair for further evaluation and management of venous disease (valvular incompetency). Follow-up is scheduled in 1 week, sooner with any concerns or worsening symptoms. Luis Simons CNP Charge Capture: [id number], [id number] PROCEDURE Observed: 11/25/2017 Status: COMPLETED Source: [facility] 11:30 AM [facility] HNO ID: [id number] Author: Luis Lyles (Loi) LOI Simons Service: (none) Author Type: Nurse Practitioner Type: Procedures Filed: 11/29/2017 2:26 PM Note Text: A procedural pause was conducted immediately prior to starting the wound debridement to verify correct patient identity using two patient identifiers: the correct site and correct procedure. Permission from the patient to perform the procedure was obtained. After providing local analgesia with Lidocaine 2% gel, a full-thickness excisional debridement of the right leg wound was performed and carried through the skin and subcutaneous tissue, using a sterile #15 blade, iris scissors, and forceps to remove the non-viable or devitalized tissue. The debridement extended into the viable wound margin/s to promote a healthy, active wound edge to support healing. The patient tolerated the procedure well without complications. Hemostasis was achieved with direct pressure. The wound/s was/were then copiously irrigated with sterile normal saline and dressings were applied. CNOV Observed: 11/25/2017 Status: COMPLETED Source: [facility] 11:30 AM [facility] REPOSITORY Office Visit ([facility]MR) ROSA BELTRAN ([id number]) 1935 F Date Time Provider Department 11/25/17 11:30 AM LUIS SIMONS, (LOI) [facility]WDMR During your visit today, we recorded the following information about you: Temperature Pulse Respiration Blood pressure 97.7 degrees 60/minute 16/minute 135/69 Luis Simons CNP, LOI 11/29/2017 2:26 PM Signed DATE OF VISIT: 11/25/2017 REASON FOR VISIT: Non-healing lower extremity wound. HISTORY OF PRESENT ILLNESS: Rosa Beltran is a 81 year old female who presents to the [facility] for further evaluation and management of a non-healing leg wound. She has a past medical history significant for atrial fibrillation on Coumadin, coronary artery disease,?COPD, hypertension, dyslipidemia and CHF.?Patient has felt mildly short of breath over the past month. ?Increase with exertion and lying flat. She is on 40 mg of Lasix twice a day. She still is urinating appropriately. She has not had any chest pain or palpitations. ?Fever, chills, or sweats. ?No productive cough. ?No wheezing. Upon taking patients vitals, her SPO2 level was from 76% - 85%. Patient stated she had shortness of breath. She was unable to finish her sentences without catching her breath. The tips of her fingers were cyanotic. Patient was sent to the ER for further evaluation. Tiffanie BARBOSA wheeled patient to the ER. INTERVAL HISTORY: Patient was sent tot he ED during her previous visit due to low oxygenation. She is now on 2 L of oxygen at all times. She denies any breathing difficulty at this time. She is an 81 year old white female with a long-standing history of swelling in her lower extremities secondary to lymphedema. Approximately 2 years ago, she sustained a fracture to her right ankle, requiring surgical intervention. The operative site became infected, and required prolonged treatment and eventually a skin graft for complete wound closure. As a result, the patient's ambulatory capacity has been impaired. Furthermore, she is morbidly obese which limits her ambulation. The patient leads a relatively sedentary lifestyle and requires a walker for ambulation. She spends a great part of her day in a sitting position. She sleeps with the head of the bed elevated. Swelling in her lower extremities has been on-going for many years. The patient has undergone a battery of diagnostic tests. A non-invasive lower extremity arterial study in December 2016 reveals normal-ankle brachial indices, bilaterally. Venous doppler examination on 01/14 reveals incompetence of the great saphenous veins, bilaterally. There is also incompetence of the small saphenous veins, bilaterally and the right accessory saphenous vein. At present, she has three wounds, 2 on the right distal leg and the other is on the left posterior calf. The left leg wound has been present for over a year and was managed with silver alginate, NPWT, Santyl, serial sharp wound debridements, compression therapy using Surepress and compression pumps. Patient's wound cultures over the past several months have grown out Enterobacter cloacae, MRSA, coag-staph aureus, and in January grew out Pseudomonas, managed with oral antibiotics. IIn July of this year, she developed a new wound on the right lateral distal leg, then in July, she experience cellulitis of both legs requiring hospitalization. In the last year, she has been followed by Dr. Jaskaran Chance at the [facility] [place] [facility]. It was felt that her home support system was inadequate and that she may not have the resources in her home environment to appropriately care for her needs. In this regard, a geriatric social work professor consultation had been recommended on several occassions, but patient apparently insisted on remaining in her home environment despite that there was thought that is may be less than optimal. The patient is here at the [facility] for a second opinion regarding management of the abovementioned bilateral lower extremity wounds. She offers no other complaints. She denies any fevers, chills, wound-related pain or other related symptoms. 11/25/17 Patient presents for follow-up. Overall, her lower extremity wounds are progressing favorably. One of the three is now healed. The remaining two show evidence of wound contraction and granulation tissue formation. To date, wounds have been managed with sharp debridement, collagen/anti-microbial dressing, compression therapy and nutritional support. She offers no new complaints. The edema in her lower extremities is well-controlled. She denies any fever, chills or other related symptoms. PAST MEDICAL HISTORY Diagnosis Date - Acquired hypothyroidism - Acute respiratory failure with hypoxia (HCC) 09/30/2017 - Atrial fibrillation (HCC) - CAD (coronary artery disease) Dr. Brenda Awan Hts, Promus element KIMMY LAD 11/20/2012, Stress test 04/2014 inferoapical reversible ischemia,small LVEF 48-50%, LHC 12/2014 L main-normal, LAD widely patent, Cx diffuse mild luminal irregularities with 80%focal stenosis distal, RCA dominant with minimal luminal irregularities. 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 - Pure hypercholesterolemia - Rheumatoid arthritis ([facility]) 2007 - Sleep apnea - Stented coronary artery 12/29/2016 PAST SURGICAL HISTORY Procedure Laterality Date - CC CORONARY STENT 11/20/2012 KIMMY LAD - CC CORONARY STENT 12/20/2014 KIMMY, Cfx - SECTION HX - COLONOSCOPY 06/10/2017 [facility], Nonspecific cecal ulcer - GASTRIC BYPASS HX 1986 - HERNIA REPAIR HX 1987; 1989 - PAST SURGICAL HISTORY OF Right 09/2015 right tibia fracture ORIF - PAST SURGICAL HISTORY OF Right 01/20/2016 Removal of hardware, right tibia - TOTAL KNEE REPLACEMENT Right 2003 [facility] Gen. - TOTAL KNEE REPLACEMENT Left 2004 [facility]. MEDICATIONS ergocalciferol, vitamin D2, (DRISDOL) 50,000 unit capsule Take 1 capsule by mouth once each week. levothyroxine (LEVOXYL) 100 mcg tablet Take 1 tablet by mouth once daily. Take on empty stomach. For Thyroid. gabapentin (NEURONTIN) 300 mg capsule Take 1 capsule by mouth twice daily. metoprolol tartrate, short acting, (LOPRESSOR) 50 mg tablet TAKE ONE TABLET BY MOUTH TWICE DAILY furosemide (LASIX) 40 mg tablet Take 1 tablet by mouth twice daily. COMPOUNDED PRESCRIPTION Calcium Alginate 4x4 Dressing, change daily Dx: Blister left leg with infection S80.822A, L08.9; Lymphedema I89.0. Wound dimensions: 4 x 3 cm acetaminophen (TYLENOL) 500 mg tablet Take 1,000 mg by mouth every 8 hours as needed. aspirin, enteric coated (ASPIRIN, ENTERIC COATED) 81 mg EC tablet Take 81 mg by mouth once daily. warfarin (COUMADIN) 1 mg tablet Take 1 mg by mouth daily as directed. Take 1 tablet (1mg) by mouth once daily. Take with 1 x 3mg tablet to total 4mg by mouth once daily. warfarin (COUMADIN) 3 mg tablet Take 3 mg by mouth daily as directed. Take 1 tablet (3mg) by mouth once daily. Take with 1 x 1mg tablet to total 4mg by mouth once daily. lisinopril (ZESTRIL) 2.5 mg tablet Take 2.5 mg by mouth once daily. omeprazole (PRILOSEC) 20 mg capsule Take 20 mg by mouth once daily. spironolactone (ALDACTONE) 25 mg tablet Take 25 mg by mouth once daily. docusate sodium (COLACE) 100 mg capsule Take 100 mg by mouth once daily as needed. therapeutic multivitamin w/ iron (THERAGRAN-M) 9 mg iron-400 mcg tablet Take 1 tablet by mouth once daily. ALLERGIES No Known Allergies FAMILY HISTORY: Patient's father in his 70s with a history of arthritis. Her mother at the age of 90 with a history of arthritis. SOCIAL HISTORY Patient is a , lives alone, but has a son nearby. She has 6 children. Substance Use Topics - Smoking status: Passive Smoke Exposure - Never Smoker - Smokeless tobacco: Never Used Comment: smoked for 40 years - Alcohol use No REVIEW OF SYSTEM: PAIN ASSESSMENT: Negative for pain, history of chronic pain, or current treatment for a chronic pain condition. GENERAL: No weight loss, malaise or fevers HEENT: Negative for frequent or significant headaches, No changes in hearing or vision, no nose bleeds or other nasal problems NECK: Negative for lumps, goiter, pain and significant neck swelling RESPIRATORY: Negative for cough, hemoptysis, wheezing, positive for shortness of breath CARDIOVASCULAR: Negative for chest pain,palpitations; has chronic leg swelling GI: No nausea, vomiting, or diarrhea : No history of dysuria, frequency or incontinence MUSCULOSKELETAL: Negative for joint pain or swelling, back pain or muscle pain SKIN: As per HPI. Negative for any other lesions, rash, and itching PSYCH: Negative for sleep disturbance, mood disorder and recent psychosocial stressors HEMATOLOGY/LYMPHOLOGY: Negative for prolonged bleeding, bruising easily or swollen nodes ENDOCRINE: Negative for cold or heat intolerance, polyuria, polydipsia and goiter NEURO: No history of headaches, syncope, paralysis, seizures or tremors 11/25/17 1130 BP: 135/69 Pulse: 60 Resp: 16 Temp: 36.5 ?C (97.8 ?F) TempSrc: Oral SpO2: 94% Weight: 88.1 kg (194 lb 4.8 oz) PHYSICAL EXAMINATION: HEENT: PERRLA , sclera non-icteric, EOM intact, mucous membrane moist, pink and w/o lesions Comments: Neck: Supple, no bruit, no masses, trachea midline Comments: Chest: Lungs clear to auscultation, no accessory muscle use for respiration Comments: Heart: Regular rate/rhythm, normal S1,S2, no murmur, rubs or gallops Comments: Abdomen: Soft, non-tender, non-distended, + bowel sounds, no bruit, no organomegaly Comments: Extremity: Dorsalis pedis : Present (Y) Absent Diminished Doppler Posterior Tibialis: Present (Y) Absent Diminished Doppler Capillary Refill: ANDlt; 3 sec. (Y) ANDgt; 3 sec. ABIs: Right Left Rubor of Dependency: Negative (Y) Positive (N) [place] Examination: Comments: Measurements: Right Calf: 36.5 cm Right Ankle: 29 cm Left Calf: 37.5 cm Left Ankle: 24.2 cm Neuro: Alert ANDamp; oriented x3, AUTOMOTIVE SALES REPRESENTATIVE II-XII grossly intact, reflexes 2+ and symmetric, UE/LE 5/5 Comments: Skin: No rashes, no abnormal skin lesions Comments: See wound assessment Most recent diagnostic/laboratory data: 10/14/17 Hemoglobin A1C = 5.8 ?? 10/14/17 WBC 8.4, Hgb 12.2, Hct 38.5, PLT 211, Glu 91, BUN 24, Cr 0.88, Na 136, K 4.7, Cl 100, Albumin 3.6, Total protein 9.1 11/04/17 Venous Doppler Study Bilateral Lower Extremities IMPRESSION RIGHT SIDE - DEEP VEINS Negative for acute deep vein thrombosis in vessels visualized. Positive for valvular incompetency in the common femoral vein and femoral vein. Lymph node noted, within the groin, measuring 2.75 x 2.71 x .809cm. Cystic structure noted, within the popliteal fossa, measuring 2.17 x 2.67 x 1.49cm. ? RIGHT SIDE - SUPERFICIAL VEINS Positive for valvular incompetency in the great saphenous vein. REFLUX ONLY NOTED AT PROXIMAL THIGH. Vessel becomes tortuous branching from proximal to distal calf. The anterior lateral branch is negative for incompetency. Positive for valvular incompetency in the small saphenous vein. REFLUX ONLY NOTED AT DISTAL CALF. LEFT SIDE - DEEP VEINS Negative for acute deep vein thrombosis in vessels visualized. Positive for valvular incompetency in the femoral vein at the mid thigh. LEFT SIDE - SUPERFICIAL VEINS Positive for valvular incompetency in the great saphenous vein. REFLUX ONLY NOTED AT MID CALF. Negative for valvular incompetency in the small saphenous vein. No previous scans for comparison; however, chronic appearing superficial thrombophlebitis in the great saphenous vein at the distal calf. ? Technologist: Cleo HOBBST Ordering physician: Luis Simons ? Interpreting physician: Vishal Torres MD, RVT ? 01/24/17 Segmental arterial doppler study bilateral lower extremities Findings: NIMISHA 1.04 to the right and 1.0 to the left. Based upon the findings of this resting non-invasive lower extremity arterial study, arterial perfusion to ankle level appears to be relatively normal bilaterally. Triphasic and biphasic waveforms were noted at ankle level bilaterally. Resting ankle- brachial indices were bilaterally normal. ? 08/01/17 X-Ray 3-View Right Ankle Impression: There is prior open reduction internal fixation of the fibula which appears to be relatively intact allowing for advanced bony osteopenia. There is an irregular appearance of the lateral side distal tibia which is compatible with a prior fracture for which a new fracture on the lateral side is not excluded. The fracture could be potentially be associated with new trauma or potentially infection. Recommend consideration for follow- up study such as MRI or potentially three-phase bone scan. ? Flattened appearance of the arch of the foot with degenerative change of the tarsotarsal joints. ? Diffuse soft tissue swelling. ? Electronically Signed: Kelly Camarena MD at 20:15 EDT Tel , Service support , ? 10/14/17 XR 2 View Tib/Fib (Left) Findings: Left tibia-fibula: Tibial component of the joint prosthesis noted without associated abnormal lucency. No acute fracture or bony destruction. Right tibia and fibula: Plate and screw fixation remote distal fibular fracture. There is also remote tibial fracture with residual posterior angulation. Ghost tracks from previous tibial hardware. Tibial component of the joint prosthesis noted without associated abnormal lucency. No acute fracture or bony destruction. ? Stereotype Finisher: DWIGHT ? Transcribe Date/Time: Oct 14 2017 ?4:02P Dictated by : ZURDO SANTOS MD ? 10/14/17 XR 2 View Tib/Fib (Right) Findings: Left tibia-fibula: Tibial component of the joint prosthesis noted without associated abnormal lucency. No acute fracture or bony destruction. Right tibia and fibula: Plate and screw fixation remote distal fibular fracture. There is also remote tibial fracture with residual posterior angulation. Ghost tracks from previous tibial hardware. Tibial component of the joint prosthesis noted without associated abnormal lucency. No acute fracture or bony destruction. ? Stereotype Finisher: DWIGHT ? Transcribe Date/Time: Oct 14 2017 ?4:02P Dictated by : ZURDO SANTOS MD ? 10/14/17 XR 2 View Tib/Fib (Left) Findings: Left tibia-fibula: Tibial component of the joint prosthesis noted without associated abnormal lucency. No acute fracture or bony destruction. Right tibia and fibula: Plate and screw fixation remote distal fibular fracture. There is also remote tibial fracture with residual posterior angulation. Ghost tracks from previous tibial hardware. Tibial component of the joint prosthesis noted without associated abnormal lucency. No acute fracture or bony destruction. WOUND ASSESSMENT: Wound Number: 1 First Assessed Date: 10/14/17 Pre-existing: YES Location: Leg Orientation: Right, Lateral and Distal Wound Etiology: Venous Depth of Tissue Injury (Non-pressure): Full Thickness Diabetic Wounds:N/A Pressure Injury: N/A Pre-Measurements Initial (First Visit): 3.5 cm length x 4.0 cm width x 0.5 cm depth Post Measurement (Current): 3.0 cm length x 3.7 cm width x 0.4 cm depth % Healing Rate/#Weeks: 37.5 % -- Week 5 Wound Bed (Post-debridement): 100% red % of Healthy tissue: Undermining: No Tunneling: No Tendon/bone exposed: NO Wound Edge/Margins: Irregular wound edges and Edge attached to base Periwound Tissue: Mild erythema, Wet (macerated), and Edema Exudate Amount:Moderate Consistency:Serous Odor:Minimal Infection/Critical Colonization Localized s/s: Non-healing and Increased exudate Systemic s/s: None Local/systemic Rx: None Wound Healing Status: Chronic Clinically presenting as: Stalled wound healing Current topical treatment: Iodoflex Wound Number: 2 First Assessed Date: 10/14/17 Pre-existing: YES Location: Leg Orientation: Right, Medial and Distal Wound Etiology: Surgical Depth of Tissue Injury (Non-pressure): Partial Thickness Diabetic Wounds:N/A Pressure Injury: N/A Pre-Measurements Initial (First Visit): 0.5 cm length x 0.4 cm width x 0.1 cm depth Post Measurement (Current): Epithelialized % Healing Rate/#Weeks: Week 1 -- Healed Wound Bed (Post-debridement): % of Healthy tissue: Undermining: No Tunneling: No Tendon/bone exposed: NO Wound Edge/Margins: Normal, intact, Irregular wound edges and Edge attached to base Periwound Tissue: Normal, intact,uninvolved tissue and Dry,flaky Exudate Amount: None Consistency: None Odor:None Infection/Critical Colonization Localized s/s: None and Edema Systemic s/s: None Local/systemic Rx: None Wound Healing Status: Chronic Clinically presenting as: Healed Current topical treatment: Iodoflex Wound Number: 3 First Assessed Date: 10/14/17 Pre-existing: YES Location: Leg (calf) Orientation: Left and Posterior Wound Etiology: Venous Depth of Tissue Injury (Non-pressure): Full Thickness Diabetic Wounds:N/A Pressure Injury: N/A Pre-Measurements Initial (First Visit): 1.3 cm length x 1.2 cm width x 0.1 cm depth Post Measurement (Current): Epithelialized % Healing Rate/#Weeks: 100 % -- Week 5 Wound Bed (Post-debridement): 100% [employer] % of Healthy tissue: Undermining: No Tunneling: No Tendon/bone exposed: NO Wound Edge/Margins: Well-defined wound edges and Edge attached to base Periwound Tissue: [employer], dry and intact, No fluctuance, induration or advancing soft tissue necrosis or ischemia Exudate: Nonr Consistency: None Odor:None Infection/Critical Colonization: N/A Localized s/s: None Systemic s/s: None Local/systemic Rx: None Wound Healing Status: Chronic Clinically presenting as: Healed Current topical treatment: Collagen IMPRESSION: 1. Non-healing right and left lower extremity wounds ( #1 and #3) in the setting of chronic venous insufficiency with secondary lymphedema. 2. Recurrent right medial leg wound s/p STSG in the setting of chronic edema. 3. Significant lower extremity edema secondary to underlying chronic venous insufficiency with secondary lymphedema. 4. Multiple risk factors or co-morbidities that may contribute to wound healing difficulties include hypothyroid disease, chronic atrial fibrillation on anticoagulation, coronary artery disease, COPD, dyslipidemia, hypertension, muscle weakness, osteoarthritis, GERD, depression and obesity. 5. Wound cultures positive for Enterobacter cloacae and Staph aureus most likely increased colonization. 6. Very good glucose control based on recent HgbA1c. 7. Zinc insufficiency ( precursor for collagen synthesis. 8. No significant arterial disease based on recent PVRs. 9. No evidence of osteomyelitis based on recent XRs. 10. Valvular incompetency involving the right common femoral vein , right femoral vein, right great saphenous vein, left femoral vein (mid thigh) and left great saphenous vein (mid thigh). TREATMENT PLAN: Debridement Type: Autolytic Enzymatic Mechanical Surgical Sharp (Y) Other: ?? Sharp debridement is performed to ANDquot;freshen upANDquot; the wound and stimulate the healing cascade. It allows the wound to progress from the inflammatory to the proliferative phase of wound healing. Wound Dressing: See Nursing Notes for details. . Topical Rx: Wounds each flushed with 10 cc of saline solution. Vitamin AANDamp;D ointment liberally applied to both lower legs. Saline moistened endoform applied to the wound bed. Equal parts of silvadene and Iodoflex on top of the endoform. Adaptic applied and secured with 1/2ANDquot; steri- strips. Site covered with 4x4's, and abd pad followed with a profore lite compression wrap. Home care to perform dressing change every 3 days. Compression therapy: Profore Multiple layer Application: A 3- layer system applied to the bilateral lower extremities. A layer of cast padding, crepe bandage, light compression bandage, followed with a layer of coban and stockinet from behind the toes to 1ANDquot; below the knee. Toes were warm and pink before and post application. + dorsal pedis pulse on palpation. It was demonstrated to the patient how to check for adequate circulation. If the patient exhibits a change in color to the extremity: change in temperature, increased pain, or the compression wrap becomes wet or to tight, the patient has been instructed to remove the wrap or go to the Emergency Department. Patient voices understanding with intent to comply. Pt instructed continue with leg elevation whenever possible to promote venous return to the heart. CirAids to be ordered for maintenance therapy. Use pneumatic compression pumps twice daily with 40-50 mmhg compression Systemic Rx: Doxycycline 100 mg by mouth twice daily x 14 days and zinc 220 mg by mouth daily x 14 days (Completed.) Nutritional Support: MVI, Zinc Supplement and Protein Supplement Patient is instructed to continue a healthy, well-balanced diet for nutritional support for optimal healing. Protein is the most important nutrient for wound healing. Eating adequate amounts of protein allows the body to create new cells and chemicals to heal the wound, and increases the body?s ability to fight infection. Eating high protein foods daily is recommended such as: lean meats, fish, poultry, cheese, milk, yogurt, eggs and legumes. Vitamins and minerals provide a full range of nutrients for wound healing. It can help ANDquot;jump startANDquot; the body's production of cells and chemicals needed for healing. Vitamins and minerals can be obtained through healthy foods in your diet and by taking a multiple vitamin supplement. Vitamin C is essential for collagen synthesis. Collagen and fibroblasts compose the basis for the structure of a new wound bed. Also, a deficiency of Vitamin C prolongs the healing time and contributes to reduced resistance to infection. Laboratory: We will obtain wound cultures to determine bacterial load. Results positive for few Enterobacter cloacae complex and many Staph aureus. No anaerobic organisms or fungal elements. Wound cultures are collected to assess level of bacterial bio-burden. Excessive bio-burden can result in inflammatory and proliferative phase stagnation as well as compromise of normal wound healing physiology. Bacterial proliferation, biofilm production, critical colonization and the development of resistant organism can lead to wound infection, wound deterioration and devastating tissue loss. Knowing the organism that populated the wound can help direct therapy, particularly anti-microbial dressing choices. Vascular Evaluation: PVRs for both lower extremities to evaluate for arterial insufficiency to see if poor circulation is an issue regarding her slow healing. Based on vascular studies, patient to see Dr. Lili Mcnair for further evaluation and management of venous disease (valvular incompetency). Follow-up is scheduled in 1 week, sooner with any concerns or worsening symptoms. Luis Simons CNP Charge Capture: [id number], [id number] Luis Simons CNP, LOI 11/29/2017 2:26 PM Signed A procedural pause was conducted immediately prior to starting the wound debridement to verify correct patient identity using two patient identifiers: the correct site and correct procedure. Permission from the patient to perform the procedure was obtained. After providing local analgesia with Lidocaine 2% gel, a full-thickness excisional debridement of the right leg wound was performed and carried through the skin and subcutaneous tissue, using a sterile #15 blade, iris scissors, and forceps to remove the non-viable or devitalized tissue. The debridement extended into the viable wound margin/s to promote a healthy, active wound edge to support healing. The patient tolerated the procedure well without complications. Hemostasis was achieved with direct pressure. The wound/s was/were then copiously irrigated with sterile normal saline and dressings were applied. Peter Jason MA, MA 11/25/2017 11:54 AM Addendum Nursing Note See provider note for wound description and measurements Dressing removed with dakins Saline 0.9% solution applied to all wounds In the presence and direction of the provider wound care as written below: Photos taken Sq debridement done to the rt lateral lower leg. Wounds each flushed with 10 cc of saline solution. Vitamin AANDamp;D ointment liberally applied to both lower legs. Saline moistened endoform applied to the wound bed. Equal parts of silvadene and Iodoflex on top of the endoform. Adaptic applied and secured with 1/2ANDquot; steri-strips. Site covered with 4x4's, and abd pad followed with a profore lite compression wrap. Profore Multiple layer Application: A 3- layer system applied to the bilateral lower extremities. A layer of cast padding, crepe bandage, light compression bandage, followed with a layer of coban and stockinet from behind the toes to 1ANDquot; below the knee. Toes were warm and pink before and post application. + dorsal pedis pulse on palpation. It was demonstrated to the patient how to check for adequate circulation. If the patient exhibits a change in color to the extremity: change in temperature, increased pain, or the compression wrap becomes wet or to tight, the patient has been instructed to remove the wrap or go to the Emergency Department. Patient voices understanding with intent to comply. #1 Right lateral distal leg: Lido gel applied prior to the SQ debridement per provider. #2 Right medial distal leg: Broken ankle 1 yr ago per patient. Remains closed #3 left distal calf: Closed today. Zinc oxide and hydrocortisone cream 1% applied to the red areas followed with a profore 3-layer wrap. Measurements: Right Calf: 55 cm Right Ankle: 29.5 cm Left Calf: 54 cm Left Ankle: 25.5 cm PLAN: Home care to perform every 3 day dressing change Insurance authorization will be submitted for Angeline Richard to bring with her to the wound center circaid wraps to be ordered Follow up with Dr. Bethany barahona Use compression pumps twice daily with 40-50 mmhg compression Copy of wound care instructions faxed to [facility] as patient's request. [phone] EDUCATION: The patient/family was instructed how to wash the wound(s) with dial soap, rinsing with water, ANDamp; patting dry. Visual demonstration on how to apply the dressing. Signs ANDamp; symptoms of infection were reviewed: Increased redness, swelling, pain, green, yellow drainage, fever or chills all would need to be evaluated by a Physician. Patient received typed homegoing wound care instructions and has expressed intent to comply. Tiffanie Humphrey, RN, RN 11/25/2017 12:01 PM Addendum WOUND CARE INSTRUCTIONS Wound location: Right medial distal leg/Right lateral distal leg/Left calf 1. Wash your hands with soap and water before and after wound care. 2. Gather all supplies needed. 3. Wash wound with Dial soap and water. Pat dry. Moisturize lower leg and foot with vitamin AANDamp;D 4. Apply saline moistened endoform to the wound base Cover endoform with equal parts of Iodoflex and silvadene(Mixing well). Cover with a layer of adaptic and secured with steri-strips. 5. Cover with 4x4's, abd pad 6. Secure dressing with Profore 3-layer compression wrap 7. Home Care to change your dressing every 3 days Left leg: Apply equal parts of zinc oxide ANDamp; hydrocortisone cream 1% to the red areas Cover with an abd pad Change dressing every 3 days Secure dressing with a Profore 3-layer wrap Profore wraps 3-layer: ? Cast cover may be used to allow you to shower ? Remove compression wraps if they become uncomfortable or cause change in color or sensation to the extremity. Rewrap as instructed. To give your wound the best chance to heal: - Eat three balanced meals daily focusing on the protein - Control swelling by elevating the extremity above your heart - exercise the extremity - Complete your wound care instructions - Vitamin C 500 mg twice daily - Multiple Vitamin Daily - Drink a protein shake daily - continue home care Report any of the following changes to the Wound Center at [phone] or go to the Emergency Department: ? Fever or chills ? Increased drainage ? Green or yellow drainage ? Foul odor ? Increased pain ? Hardness around the wound ? Redness, warmth or swelling of the surrounding tissue ? Color change to the wound Return to the Wound Center in 1 week to see Marlen Follow up with Dr. 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) [L97.912] Other Visit Diagnoses:Non-pressure chronic ulcer of left lower leg with fat layer exposed (HCC) [L97.922] Venous insufficiency (chronic) (peripheral) [I87.2] Prescriptions as of 11/25/2017 Sig: SILVER SULFADIAZINE 1 % TOPIC* Apply to leg wounds as direct* ACETAMINOPHEN 500 MG TABLET Take 1,000 mg by mouth every * ASPIRIN 81 MG TABLET,DELAYED * Take 81 mg by mouth once oliver* WARFARIN 1 MG TABLET Take 1 mg by mouth daily as d* WARFARIN 3 MG TABLET Take 3 mg by mouth daily as d* LISINOPRIL 2.5 MG TABLET Take 2.5 mg by mouth once yuly* OMEPRAZOLE 20 MG CAPSULE,LUIS MIGUEL* Take 20 mg by mouth once oliver* SPIRONOLACTONE 25 MG TABLET Take 25 mg by mouth once oliver* DOCUSATE SODIUM 100 MG CAPSULE Take 100 mg by mouth once yuly* MULTIVITAMIN-IRON 9 MG-FOLIC * Take 1 tablet by mouth once d* ERGOCALCIFEROL (VITAMIN D2) 5* Take 1 capsule by mouth once * LEVOTHYROXINE 100 MCG TABLET Take 1 tablet by mouth once d* GABAPENTIN 300 MG CAPSULE Take 1 capsule by mouth twice* METOPROLOL TARTRATE 50 MG TAB* TAKE ONE TABLET BY MOUTH TWIC* FUROSEMIDE 40 MG TABLET Take 1 tablet by mouth twice * COMPOUNDED PRESCRIPTION Calcium Alginate 4x4 Dressing* ZINC SULFATE 220 MG TABLET Take 1 tablet by mouth once d* Problem List As Of Date 11/25/2017 Noted Resolved Gastroesophageal reflux disease without esophag*INVALID FOR* Chronic atrial fibrillation (HCC) [I48.2] INVALID FOR* Priority: B Pure hypercholesterolemia [E78.00] Hypertension [I10] Priority: D More... Acquired hypothyroidism [E03.9] CAD (coronary artery disease) [I25.10] More... Depressive disorder [F32.9] INVALID FOR*07/18/2017 Primary osteoarthritis involving multiple joint*INVALID FOR* Lymphedema of both lower extremities [I89.0] INVALID FOR* Mouth dryness [R68.2] INVALID FOR* Muscular weakness [M62.81] INVALID FOR* Dorsalgia [M54.9] INVALID FOR* Stented coronary artery [Z95.5] INVALID FOR* Priority: A Gastric bypass status for obesity [Z98.84] INVALID FOR* Priority: C Bilateral leg ulcer (HCC) [L97.919, L97.929] INVALID FOR* Priority: E More... Polyneuropathy (HCC) [G62.9] INVALID FOR* Cecal ulcer [K63.3] INVALID FOR* Acute respiratory failure with hypoxia (HCC) [J*INVALID FOR*10/10/2017 Priority: Severe Anticoagulation goal of INR 2 to 3 [Z51.81, Z79*INVALID FOR* Priority: Mild More... ANASARCA/HYPOXIA 09/30/17 ADMISSION SUMMARY [Z9*INVALID FOR* Priority: Very Severe More... Skin bulla [R23.8] INVALID FOR* Priority: Mild More... Respiratory failure with hypoxia (HCC) [J96.91] INVALID FOR* Priority: Severe Heart failure with preserved ejection fraction *INVALID FOR* Priority: A More... Physical debility [R53.81] INVALID FOR* Priority: Moderate More... Requires continuous at home supplemental oxygen*INVALID FOR* More... Other instructions from your clinician: WOUND CARE INSTRUCTIONS Wound location: Right medial distal leg/Right lateral distal leg/Left calf 1. Wash your hands with soap and water before and after wound care. 2. Gather all supplies needed. 3. Wash wound with Dial soap and water. Pat dry. Moisturize lower leg and foot with vitamin AANDD 4. Apply saline moistened endoform to the wound base Cover endoform with equal parts of Iodoflex and silvadene(Mixing well). Cover with a layer of adaptic and secured with steri-strips. 5. Cover with 4x4's, abd pad 6. Secure dressing with Profore 3-layer compression wrap 7. Home Care to change your dressing every 3 days Left leg: Apply equal parts of zinc oxide AND hydrocortisone cream 1% to the red areas Cover with an abd pad Change dressing every 3 days Secure dressing with a Profore 3-layer wrap Profore wraps 3-layer: ? Cast cover may be used to allow you to shower ? Remove compression wraps if they become uncomfortable or cause change in color or sensation to the extremity. Rewrap as instructed. To give your wound the best chance to heal: - Eat three balanced meals daily focusing on the protein - Control swelling by elevating the extremity above your heart - exercise the extremity - Complete your wound care instructions - Vitamin C 500 mg twice daily - Multiple Vitamin Daily - Drink a protein shake daily - continue home care Report any of the following changes to the Wound Center at [phone] or go to the Emergency Department: ? Fever or chills ? Increased drainage ? Green or yellow drainage ? Foul odor ? Increased pain ? Hardness around the wound ? Redness, warmth or swelling of the surrounding tissue ? Color change to the wound Return to the Wound Center in 1 week to see Marlen Follow up with Dr. Bethany BARAHONA to review vascular studies in her office 2/5 Begin using compression pumps - run with 40-50 mmhg of compression twice daily (Call company to have pumps set to proper compression) Please bring your creams to the wound center - every visit Luis Simons GROUND SYSTEMS ENGINEER/mjl Visit Notes: >> Peter (Tory) TORY Jason TueNov 25, 2017 11:48 AM Status: Addendum Nursing Note See provider note for wound description and measurements Dressing removed with dakins Saline 0.9% solution applied to all wounds In the presence and direction of the provider wound care as written below: Photos taken Sq debridement done to the rt lateral lower leg. Wounds each flushed with 10 cc of saline solution. Vitamin AANDD ointment liberally applied to both lower legs. Saline moistened endoform applied to the wound bed. Equal parts of silvadene and Iodoflex on top of the endoform. Adaptic applied and secured with 1/2 steri-strips. Site covered with 4x4's, and abd pad followed with a profore lite compression wrap. Profore Multiple layer Application: A 3- layer system applied to the bilateral lower extremities. A layer of cast padding, crepe bandage, light compression bandage, followed with a layer of coban and stockinet from behind the toes to 1 below the knee. Toes were warm and pink before and post application. + dorsal pedis pulse on palpation. It was demonstrated to the patient how to check for adequate circulation. If the patient exhibits a change in color to the extremity: change in temperature, increased pain, or the compression wrap becomes wet or to tight, the patient has been instructed to remove the wrap or go to the Emergency Department. Patient voices understanding with intent to comply. #1 Right lateral distal leg: Lido gel applied prior to the SQ debridement per provider. #2 Right medial distal leg: Broken ankle 1 yr ago per patient. Remains closed #3 left distal calf: Closed today. Zinc oxide and hydrocortisone cream 1% applied to the red areas followed with a profore 3-layer wrap. Measurements: Right Calf: 55 cm Right Ankle: 29.5 cm Left Calf: 54 cm Left Ankle: 25.5 cm PLAN: Home care to perform every 3 day dressing change Insurance authorization will be submitted for Angeline Richard to bring with her to the wound center circaid wraps to be ordered Follow up with Dr. Bethany barahona Use compression pumps twice daily with 40-50 mmhg compression Copy of wound care instructions faxed to [facility] as patient's request. [phone] EDUCATION: The patient/family was instructed how to wash the wound(s) with dial soap, rinsing with water, AND patting dry. Visual demonstration on how to apply the dressing. Signs AND symptoms of infection were reviewed: Increased redness, swelling, pain, green, yellow drainage, fever or chills all would need to be evaluated by a Physician. Patient received typed homegoing wound care instructions and has expressed intent to comply. Encounter Status:Closed by LUIS SIMONS on 11/29/17 PROCEDURE Observed: 11/21/2017 Status: COMPLETED Source: [facility] 6:11 AM [facility] REPOSITORY HNO ID: [id number] Author: Luis Rodriguez) OLI Simons Service: (none) Author Type: Nurse Practitioner Type: Procedures Filed: 11/21/2017 6:15 AM Note Text: A procedural pause was conducted immediately prior to starting the wound debridement to verify correct patient identity using two patient identifiers: the correct site and correct procedure. Permission from the patient to perform the procedure was obtained. After providing local analgesia with Lidocaine 2% gel, a full-thickness excisional debridement of the right and left leg wounds was performed and carried through the skin and subcutaneous tissue, using a sterile #15 blade, iris scissors, and forceps to remove the non-viable or devitalized tissue. The debridement extended into the viable wound margin/s to promote a healthy, active wound edge to support healing. The patient tolerated the procedure well without complications. Hemostasis was achieved with direct pressure. The wound/s was/were then copiously irrigated with sterile normal saline and dressings were applied. PROGRESS Observed: 11/14/2017 Status: COMPLETED Source: [facility] 9:15 PM [facility] REPOSITORY HNO ID: [id number] Author: Luis Rodriguez) LOI Simons Service: (none) Author Type: Nurse Practitioner Type: Progress Notes Filed: 11/29/2017 2:08 PM Note Text: DATE OF VISIT: 11/14/2017 REASON FOR VISIT: Non-healing lower extremity wound. HISTORY OF PRESENT ILLNESS: Rosa Beltran is a 81 year old female who presents to the [facility] for further evaluation and management of a non-healing leg wound. She has a past medical history significant for atrial fibrillation on Coumadin, coronary artery disease,?COPD, hypertension, dyslipidemia and CHF.?Patient has felt mildly short of breath over the past month. ?Increase with exertion and lying flat. She is on 40 mg of Lasix twice a day. She still is urinating appropriately. She has not had any chest pain or palpitations. ?Fever, chills, or sweats. ?No productive cough. ?No wheezing. Upon taking patients vitals, her SPO2 level was from 76% - 85%. Patient stated she had shortness of breath. She was unable to finish her sentences without catching her breath. The tips of her fingers were cyanotic. Patient was sent to the ER for further evaluation. Tiffanie BARBOSA wheeled patient to the ER. INTERVAL HISTORY: Patient was sent tot he ED during her previous visit due to low oxygenation. She is now on 2 L of oxygen at all times. She denies any breathing difficulty at this time. She is an 81 year old white female with a long-standing history of swelling in her lower extremities secondary to lymphedema. Approximately 2 years ago, she sustained a fracture to her right ankle, requiring surgical intervention. The operative site became infected, and required prolonged treatment and eventually a skin graft for complete wound closure. As a result, the patient's ambulatory capacity has been impaired. Furthermore, she is morbidly obese which limits her ambulation. The patient leads a relatively sedentary lifestyle and requires a walker for ambulation. She spends a great part of her day in a sitting position. She sleeps with the head of the bed elevated. Swelling in her lower extremities has been on-going for many years. The patient has undergone a battery of diagnostic tests. A non-invasive lower extremity arterial study in December 2016 reveals normal- ankle brachial indices, bilaterally. Venous doppler examination on 01/14 reveals incompetence of the great saphenous veins, bilaterally. There is also incompetence of the small saphenous veins, bilaterally and the right accessory saphenous vein. At present, she has three wounds, 2 on the right distal leg and the other is on the left posterior calf. The left leg wound has been present for over a year and was managed with silver alginate, NPWT, Santyl, serial sharp wound debridements, compression therapy using Surepress and compression pumps. Patient's wound cultures over the past several months have grown out Enterobacter cloacae, MRSA, coag-staph aureus, and in January grew out Pseudomonas, managed with oral antibiotics. IIn July of this year, she developed a new wound on the right lateral distal leg, then in July, she experience cellulitis of both legs requiring hospitalization. In the last year, she has been followed by Dr. Jaskaran Chance at the [facility]. It was felt that her home support system was inadequate and that she may not have the resources in her home environment to appropriately care for her needs. In this regard, a geriatric social work professor consultation had been recommended on several occassions, but patient apparently insisted on remaining in her home environment despite that there was thought that is may be less than optimal. The patient is here at the [facility] for a second opinion regarding management of the abovementioned bilateral lower extremity wounds. She offers no other complaints. She denies any fevers, chills, wound-related pain or other related symptoms. 11/14/17 Patient presents for follow-up. Overall, her lower extremity wounds are progressing favorably. One of the three is now healed. The remaining two show evidence of wound contraction and granulation tissue formation. To date, wounds have been managed with sharp debridement, collagen dressing and oral antibiotics and nutritional support. She offers no new complaints. The edema in her lower extremities is well-controlled. She denies any fever, chills or other related symptoms. PAST MEDICAL HISTORY Diagnosis Date - Acquired hypothyroidism - Acute respiratory failure with hypoxia (HCC) 09/30/2017 - Atrial fibrillation (HCC) - CAD (coronary artery disease) Dr. Brenda Awan Hts, Promus element KIMMY LAD 11/20/2012, Stress test 04/2014 inferoapical reversible ischemia,small LVEF 48- 50%, LHC 12/2014 L main-normal, LAD widely patent, Cx diffuse mild luminal irregularities with 80%focal stenosis distal, RCA dominant with minimal luminal irregularities. 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 - Pure hypercholesterolemia - Rheumatoid arthritis ([facility]) 2007 - Sleep apnea - Stented coronary artery 12/29/2016 PAST SURGICAL HISTORY Procedure Laterality Date - CC CORONARY STENT 11/20/2012 KIMMY LAD - CC CORONARY STENT 12/20/2014 KIMMY, Cfx - SECTION HX - COLONOSCOPY 06/10/2017 [facility], Nonspecific cecal ulcer - GASTRIC BYPASS HX 1986 - HERNIA REPAIR HX 1987; 1989 - PAST SURGICAL HISTORY OF Right 09/2015 right tibia fracture ORIF - PAST SURGICAL HISTORY OF Right 01/20/2016 Removal of hardware, right tibia - TOTAL KNEE REPLACEMENT Right 2003 [facility] Gen. - TOTAL KNEE REPLACEMENT Left 2004 [facility]. MEDICATIONS ergocalciferol, vitamin D2, (DRISDOL) 50,000 unit capsule Take 1 capsule by mouth once each week. levothyroxine (LEVOXYL) 100 mcg tablet Take 1 tablet by mouth once daily. Take on empty stomach. For Thyroid. gabapentin (NEURONTIN) 300 mg capsule Take 1 capsule by mouth twice daily. metoprolol tartrate, short acting, (LOPRESSOR) 50 mg tablet TAKE ONE TABLET BY MOUTH TWICE DAILY furosemide (LASIX) 40 mg tablet Take 1 tablet by mouth twice daily. COMPOUNDED PRESCRIPTION Calcium Alginate 4x4 Dressing, change daily Dx: Blister left leg with infection S80.822A, L08.9; Lymphedema I89.0. Wound dimensions: 4 x 3 cm acetaminophen (TYLENOL) 500 mg tablet Take 1,000 mg by mouth every 8 hours as needed. aspirin, enteric coated (ASPIRIN, ENTERIC COATED) 81 mg EC tablet Take 81 mg by mouth once daily. warfarin (COUMADIN) 1 mg tablet Take 1 mg by mouth daily as directed. Take 1 tablet (1mg) by mouth once daily. Take with 1 x 3mg tablet to total 4mg by mouth once daily. warfarin (COUMADIN) 3 mg tablet Take 3 mg by mouth daily as directed. Take 1 tablet (3mg) by mouth once daily. Take with 1 x 1mg tablet to total 4mg by mouth once daily. lisinopril (ZESTRIL) 2.5 mg tablet Take 2.5 mg by mouth once daily. omeprazole (PRILOSEC) 20 mg capsule Take 20 mg by mouth once daily. spironolactone (ALDACTONE) 25 mg tablet Take 25 mg by mouth once daily. docusate sodium (COLACE) 100 mg capsule Take 100 mg by mouth once daily as needed. therapeutic multivitamin w/ iron (THERAGRAN-M) 9 mg iron-400 mcg tablet Take 1 tablet by mouth once daily. ALLERGIES No Known Allergies FAMILY HISTORY: Patient's father in his 70s with a history of arthritis. Her mother at the age of 90 with a history of arthritis. SOCIAL HISTORY Patient is a , lives alone, but has a son nearby. She has 6 children. Substance Use Topics - Smoking status: Passive Smoke Exposure - Never Smoker - Smokeless tobacco: Never Used Comment: smoked for 40 years - Alcohol use No REVIEW OF SYSTEM: PAIN ASSESSMENT: Negative for pain, history of chronic pain, or current treatment for a chronic pain condition. GENERAL: No weight loss, malaise or fevers HEENT: Negative for frequent or significant headaches, No changes in hearing or vision, no nose bleeds or other nasal problems NECK: Negative for lumps, goiter, pain and significant neck swelling RESPIRATORY: Negative for cough, hemoptysis, wheezing, positive for shortness of breath CARDIOVASCULAR: Negative for chest pain,palpitations; has chronic leg swelling GI: No nausea, vomiting, or diarrhea : No history of dysuria, frequency or incontinence MUSCULOSKELETAL: Negative for joint pain or swelling, back pain or muscle pain SKIN: As per HPI. Negative for any other lesions, rash, and itching PSYCH: Negative for sleep disturbance, mood disorder and recent psychosocial stressors HEMATOLOGY/LYMPHOLOGY: Negative for prolonged bleeding, bruising easily or swollen nodes ENDOCRINE: Negative for cold or heat intolerance, polyuria, polydipsia and goiter NEURO: No history of headaches, syncope, paralysis, seizures or tremors 11/14/17 0915 BP: 149/83 Pulse: 58 Resp: 20 Temp: 36.6 ?C (97.8 ?F) TempSrc: Oral SpO2: 95% Weight: 88.1 kg (194 lb 4.8 oz) PHYSICAL EXAMINATION: HEENT: PERRLA , sclera non-icteric, EOM intact, mucous membrane moist, pink and w/o lesions Comments: Neck: Supple, no bruit, no masses, trachea midline Comments: Chest: Lungs clear to auscultation, no accessory muscle use for respiration Comments: Heart: Regular rate/rhythm, normal S1,S2, no murmur, rubs or gallops Comments: Abdomen: Soft, non-tender, non-distended, + bowel sounds, no bruit, no organomegaly Comments: Extremity: Dorsalis pedis : Present (Y) Absent Diminished Doppler Posterior Tibialis: Present (Y) Absent Diminished Doppler Capillary Refill: < 3 sec. (Y) > 3 sec. 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 10/14/17 WBC 8.4, Hgb 12.2, Hct 38.5, PLT 211, Glu 91, BUN 24, Cr 0.88, Na 136, K 4.7, Cl 100, Albumin 3.6, Total protein 9.1 11/04/17 Venous Doppler Study Bilateral Lower Extremities IMPRESSION RIGHT SIDE - DEEP VEINS Negative for acute deep vein thrombosis in vessels visualized. Positive for valvular incompetency in the common femoral vein and femoral vein. Lymph node noted, within the groin, measuring 2.75 x 2.71 x .809cm. Cystic structure noted, within the popliteal fossa, measuring 2.17 x 2.67 x 1.49cm. ? RIGHT SIDE - SUPERFICIAL VEINS Positive for valvular incompetency in the great saphenous vein. REFLUX ONLY NOTED AT PROXIMAL THIGH. Vessel becomes tortuous branching from proximal to distal calf. The anterior lateral branch is negative for incompetency. Positive for valvular incompetency in the small saphenous vein. REFLUX ONLY NOTED AT DISTAL CALF. LEFT SIDE - DEEP VEINS Negative for acute deep vein thrombosis in vessels visualized. Positive for valvular incompetency in the femoral vein at the mid thigh. LEFT SIDE - SUPERFICIAL VEINS Positive for valvular incompetency in the great saphenous vein. REFLUX ONLY NOTED AT MID CALF. Negative for valvular incompetency in the small saphenous vein. No previous scans for comparison; however, chronic appearing superficial thrombophlebitis in the great saphenous vein at the distal calf. ? Technologist: Cleo Magdaleno RVT Ordering physician: Luis Simons ? Interpreting physician: Vishal Torres MD, SHREE ? 01/24/17 Segmental arterial doppler study bilateral lower extremities Findings: NIMISHA 1.04 to the right and 1.0 to the left. Based upon the findings of this resting non-invasive lower extremity arterial study, arterial perfusion to ankle level appears to be relatively normal bilaterally. Triphasic and biphasic waveforms were noted at ankle level bilaterally. Resting ankle-brachial indices were bilaterally normal. ? 08/01/17 X-Ray 3-View Right Ankle Impression: There is prior open reduction internal fixation of the fibula which appears to be relatively intact allowing for advanced bony osteopenia. There is an irregular appearance of the lateral side distal tibia which is compatible with a prior fracture for which a new fracture on the lateral side is not excluded. The fracture could be potentially be associated with new trauma or potentially infection. Recommend consideration for follow-up study such as MRI or potentially three-phase bone scan. ? Flattened appearance of the arch of the foot with degenerative change of the tarsotarsal joints. ? Diffuse soft tissue swelling. ? Electronically Signed: Kelly Camarena MD at 20:15 EDT Tel , Service support , ? 10/14/17 XR 2 View Tib/Fib (Left) Findings: Left tibia-fibula: Tibial component of the joint prosthesis noted without associated abnormal lucency. No acute fracture or bony destruction. Right tibia and fibula: Plate and screw fixation remote distal fibular fracture. There is also remote tibial fracture with residual posterior angulation. Ghost tracks from previous tibial hardware. Tibial component of the joint prosthesis noted without associated abnormal lucency. No acute fracture or bony destruction. ? Stereotype Finisher: DWIGHT ? Transcribe Date/Time: Oct 14 2017 ?4:02P Dictated by : ZURDO SANTOS MD ? 10/14/17 XR 2 View Tib/Fib (Right) Findings: Left tibia-fibula: Tibial component of the joint prosthesis noted without associated abnormal lucency. No acute fracture or bony destruction. Right tibia and fibula: Plate and screw fixation remote distal fibular fracture. There is also remote tibial fracture with residual posterior angulation. Ghost tracks from previous tibial hardware. Tibial component of the joint prosthesis noted without associated abnormal lucency. No acute fracture or bony destruction. ? Stereotype Finisher: DWIGHT ? Transcribe Date/Time: Oct 14 2017 ?4:02P Dictated by : ZURDO SANTOS MD ? 10/14/17 XR 2 View Tib/Fib (Left) Findings: Left tibia-fibula: Tibial component of the joint prosthesis noted without associated abnormal lucency. No acute fracture or bony destruction. Right tibia and fibula: Plate and screw fixation remote distal fibular fracture. There is also remote tibial fracture with residual posterior angulation. Ghost tracks from previous tibial hardware. Tibial component of the joint prosthesis noted without associated abnormal lucency. No acute fracture or bony destruction. WOUND ASSESSMENT: Wound Number: 1 First Assessed Date: 10/14/17 Pre-existing: YES Location: Leg Orientation: Right, Lateral and Distal Wound Etiology: Venous Depth of Tissue Injury (Non-pressure): Full Thickness Diabetic Wounds:N/A Pressure Injury: N/A Pre-Measurements Initial (First Visit): 3.5 cm length x 4.0 cm width x 0.5 cm depth Post Measurement (Current): 2.9 cm length x 3.8 cm width x 0.4 cm depth % Healing Rate/#Weeks: 37.5 % -- Week 4 Wound Bed (Post-debridement): 100% red % of Healthy tissue: Undermining: No Tunneling: No Tendon/bone exposed: NO Wound Edge/Margins: Irregular wound edges and Edge attached to base Periwound Tissue: Mild erythema, Wet (macerated), and Edema Exudate Amount:Moderate Consistency:Serous Odor:Minimal Infection/Critical Colonization Localized s/s: Non-healing and Increased exudate Systemic s/s: None Local/systemic Rx: None Wound Healing Status: Chronic Clinically presenting as: Stalled wound healing Current topical treatment: Iodoflex Wound Number: 2 First Assessed Date: 10/14/17 Pre-existing: YES Location: Leg Orientation: Right, Medial and Distal Wound Etiology: Surgical Depth of Tissue Injury (Non-pressure): Partial Thickness Diabetic Wounds:N/A Pressure Injury: N/A Pre-Measurements Initial (First Visit): 0.5 cm length x 0.4 cm width x 0.1 cm depth Post Measurement (Current): Epithelialized % Healing Rate/#Weeks: Week 1 -- Healed Wound Bed (Post-debridement): % of Healthy tissue: Undermining: No Tunneling: No Tendon/bone exposed: NO Wound Edge/Margins: Normal, intact, Irregular wound edges and Edge attached to base Periwound Tissue: Normal, intact,uninvolved tissue and Dry,flaky Exudate Amount: None Consistency: None Odor:None Infection/Critical Colonization Localized s/s: None and Edema Systemic s/s: None Local/systemic Rx: None Wound Healing Status: Chronic Clinically presenting as: Healed Current topical treatment: Iodoflex Wound Number: 3 First Assessed Date: 10/14/17 Pre-existing: YES Location: Leg (calf) Orientation: Left and Posterior Wound Etiology: Venous Depth of Tissue Injury (Non-pressure): Full Thickness Diabetic Wounds:N/A Pressure Injury: N/A Pre-Measurements Initial (First Visit): 1.3 cm length x 1.2 cm width x 0.1 cm depth Post Measurement (Current): 0.7 cm length x 0.4 cm width x 0.1 cm depth % Healing Rate/#Weeks: 82.1 % -- Week 4 Wound Bed (Post-debridement): 100% red % of Healthy tissue: Undermining: No Tunneling: No Tendon/bone exposed: NO Wound Edge/Margins: Well-defined wound edges and Edge attached to base Periwound Tissue: Mild circumferential erythema, No fluctuance, induration or advancing soft tissue necrosis or ischemia Exudate Amount:Scant/Minimal Consistency:Serous Odor:None Infection/Critical Colonization Localized s/s: Non-healing and Edema Systemic s/s: None Local/systemic Rx: None Wound Healing Status: Chronic Clinically presenting as: Stalled wound healing Current topical treatment: Dry gauze pad IMPRESSION: 1. Non-healing right and left lower extremity wounds ( #1 and #3) in the setting of chronic venous insufficiency with secondary lymphedema. 2. Recurrent right medial leg wound s/p STSG in the setting of chronic edema. 3. Significant lower extremity edema secondary to underlying chronic venous insufficiency with secondary lymphedema. 4. Multiple risk factors or co-morbidities that may contribute to wound healing difficulties include hypothyroid disease, chronic atrial fibrillation on anticoagulation, coronary artery disease, COPD, dyslipidemia, hypertension, muscle weakness, osteoarthritis, GERD, depression and obesity. 5. Wound cultures positive for Enterobacter cloacae and Staph aureus most likely increased colonization. 6. Very good glucose control based on recent HgbA1c. 7. Zinc insufficiency ( precursor for collagen synthesis. 8. No significant arterial disease based on recent PVRs. 9. No evidence of osteomyelitis based on recent XRs. 10. Valvular incompetency involving the right common femoral vein , right femoral vein, right great saphenous vein, left femoral vein (mid thigh) and left great saphenous vein (mid thigh). TREATMENT PLAN: Debridement Type: Autolytic Enzymatic Mechanical Surgical Sharp (Y) Other: ?? Sharp debridement is performed to freshen up the wound and stimulate the healing cascade. It allows the wound to progress from the inflammatory to the proliferative phase of wound healing. Wound Dressing: See Nursing Notes for details. . Topical Rx: Wounds each flushed with 10 cc of saline solution. Vitamin AANDD ointment liberally applied to both lower legs. Saline moistened endoform applied to the wound bed. Equal parts of silvadene and Iodoflex on top of the endoform. Adaptic applied and secured with 1/2 steri-strips. Site covered with 4x4's, and abd pad followed with a profore lite compression wrap. Home care to perform dressing change every 3 days. Compression therapy: Profore Multiple layer Application: A 3- layer system applied to the bilateral lower extremities. A layer of cast padding, crepe bandage, light compression bandage, followed with a layer of coban and stockinet from behind the toes to 1 below the knee. Toes were warm and pink before and post application. + dorsal pedis pulse on palpation. It was demonstrated to the patient how to check for adequate circulation. If the patient exhibits a change in color to the extremity: change in temperature, increased pain, or the compression wrap becomes wet or to tight, the patient has been instructed to remove the wrap or go to the Emergency Department. Patient voices understanding with intent to comply. Pt instructed continue with leg elevation whenever possible to promote venous return to the heart. CirAids to be ordered for maintenance therapy. Use pneumatic compression pumps twice daily with 40-50 mmhg compression Systemic Rx: Doxycycline 100 mg by mouth twice daily x 14 days and zinc 220 mg by mouth daily x 14 days completed.. Nutritional Support: MVI, Zinc Supplement and Protein Supplement Patient is instructed to continue a healthy, well-balanced diet for nutritional support for optimal healing. Protein is the most important nutrient for wound healing. Eating adequate amounts of protein allows the body to create new cells and chemicals to heal the wound, and increases the body?s ability to fight infection. Eating high protein foods daily is recommended such as: lean meats, fish, poultry, cheese, milk, yogurt, eggs and legumes. Vitamins and minerals provide a full range of nutrients for wound healing. It can help jump start the body's production of cells and chemicals needed for healing. Vitamins and minerals can be obtained through healthy foods in your diet and by taking a multiple vitamin supplement. Vitamin C is essential for collagen synthesis. Collagen and fibroblasts compose the basis for the structure of a new wound bed. Also, a deficiency of Vitamin C prolongs the healing time and contributes to reduced resistance to infection. Laboratory: We will obtain wound cultures to determine bacterial load. Results positive for few Enterobacter cloacae complex and many Staph aureus. No anaerobic organisms or fungal elements. Wound cultures are collected to assess level of bacterial bio-burden. Excessive bio-burden can result in inflammatory and proliferative phase stagnation as well as compromise of normal wound healing physiology. Bacterial proliferation, biofilm production, critical colonization and the development of resistant organism can lead to wound infection, wound deterioration and devastating tissue loss. Knowing the organism that populated the wound can help direct therapy, particularly anti-microbial dressing choices. Vascular Evaluation: PVRs for both lower extremities to evaluate for arterial insufficiency to see if poor circulation is an issue regarding her slow healing. Based on vascular studies, patient to see Dr. Lili Mcnair for further evaluation and management of venous disease (valvular incompetency). Follow-up is scheduled in 1 week, sooner with any concerns or worsening symptoms. Luis Simons CNP Charge Capture: [id number] PROGRESS Observed: 11/14/2017 Status: COMPLETED Source: [facility] 9:15 AM CLINIC OTHER CAMPUS REPOSITORY HNO ID: [id number] Author: Luis Lyles (Loi) LOI Simons Service: (none) Author Type: Nurse Practitioner Type: Progress Notes Filed: 11/29/2017 10:46 AM Note Text: DATE OF VISIT: 11/14/2017 REASON FOR VISIT: Non-healing lower extremity wound. HISTORY OF PRESENT ILLNESS: Rosa Beltran is a 81 year old female who presents to the [facility] for further evaluation and management of a non-healing leg wound. She has a past medical history significant for atrial fibrillation on Coumadin, coronary artery disease,?COPD, hypertension, dyslipidemia and CHF.?Patient has felt mildly short of breath over the past month. ?Increase with exertion and lying flat. She is on 40 mg of Lasix twice a day. She still is urinating appropriately. She has not had any chest pain or palpitations. ?Fever, chills, or sweats. ?No productive cough. ?No wheezing. Upon taking patients vitals, her SPO2 level was from 76% - 85%. Patient stated she had shortness of breath. She was unable to finish her sentences without catching her breath. The tips of her fingers were cyanotic. Patient was sent to the ER for further evaluation. Tiffanie BARBOSA wheeled patient to the ER. PAST MEDICAL HISTORY Diagnosis Date - Acquired hypothyroidism - Acute respiratory failure with hypoxia (HCC) 09/30/2017 - Atrial fibrillation (HCC) - CAD (coronary artery disease) Dr. Brenda Awan Hts, Promus element KIMMY LAD 11/20/2012, Stress test 04/2014 inferoapical reversible ischemia,small LVEF 48- 50%, LHC 12/2014 L main-normal, LAD widely patent, Cx diffuse mild luminal irregularities with 80%focal stenosis distal, RCA dominant with minimal luminal irregularities. PTCA and Promus premier KIMMY distal Cx 12/20/2014, RX aspirin and plavix - Cecal ulcer 06/10/2017 - Chronic atrial fibrillation (HCC) 10/08/2016 - COPD (chronic obstructive pulmonary disease) (HCC) - Depressive disorder 12/29/2016 - Disruption of surgical wound 09/2015 Right tibia - Dorsalgia 12/29/2016 - Dyslipidemia - Gastric bypass status for obesity 12/29/2016 - Gastroesophageal reflux disease without esophagitis 10/08/2016 - HTN (hypertension) - Muscular weakness 12/29/2016 - Primary osteoarthritis involving multiple joints 12/29/2016 - Pure hypercholesterolemia - Rheumatoid arthritis (HCC) 2007 - Sleep apnea - Stented coronary artery 12/29/2016 PAST SURGICAL HISTORY Procedure Laterality Date - CC CORONARY STENT 11/20/2012 KIMMY LAD - CC CORONARY STENT 12/20/2014 KIMMY, Cfx - SECTION HX - COLONOSCOPY 06/10/2017 [facility], Nonspecific cecal ulcer - GASTRIC BYPASS HX 1986 - HERNIA REPAIR HX 1987; 1989 - PAST SURGICAL HISTORY OF Right 09/2015 right tibia fracture ORIF - PAST SURGICAL HISTORY OF Right 01/20/2016 Removal of hardware, right tibia - TOTAL KNEE REPLACEMENT Right 2003 [facility]. - TOTAL KNEE REPLACEMENT Left 2004 [facility]. MEDICATIONS ergocalciferol, vitamin D2, (DRISDOL) 50,000 unit capsule Take 1 capsule by mouth once each week. levothyroxine (LEVOXYL) 100 mcg tablet Take 1 tablet by mouth once daily. Take on empty stomach. For Thyroid. gabapentin (NEURONTIN) 300 mg capsule Take 1 capsule by mouth twice daily. metoprolol tartrate, short acting, (LOPRESSOR) 50 mg tablet TAKE ONE TABLET BY MOUTH TWICE DAILY furosemide (LASIX) 40 mg tablet Take 1 tablet by mouth twice daily. COMPOUNDED PRESCRIPTION Calcium Alginate 4x4 Dressing, change daily Dx: Blister left leg with infection S80.822A, L08.9; Lymphedema I89.0. Wound dimensions: 4 x 3 cm acetaminophen (TYLENOL) 500 mg tablet Take 1,000 mg by mouth every 8 hours as needed. aspirin, enteric coated (ASPIRIN, ENTERIC COATED) 81 mg EC tablet Take 81 mg by mouth once daily. warfarin (COUMADIN) 1 mg tablet Take 1 mg by mouth daily as directed. Take 1 tablet (1mg) by mouth once daily. Take with 1 x 3mg tablet to total 4mg by mouth once daily. warfarin (COUMADIN) 3 mg tablet Take 3 mg by mouth daily as directed. Take 1 tablet (3mg) by mouth once daily. Take with 1 x 1mg tablet to total 4mg by mouth once daily. lisinopril (ZESTRIL) 2.5 mg tablet Take 2.5 mg by mouth once daily. omeprazole (PRILOSEC) 20 mg capsule Take 20 mg by mouth once daily. spironolactone (ALDACTONE) 25 mg tablet Take 25 mg by mouth once daily. docusate sodium (COLACE) 100 mg capsule Take 100 mg by mouth once daily as needed. therapeutic multivitamin w/ iron (THERAGRAN-M) 9 mg iron-400 mcg tablet Take 1 tablet by mouth once daily. ALLERGIES No Known Allergies ezekiel history on file. FAMILY HISTORY: Significant for diabetes mellitus (mother) SOCIALHISTORY Substance Use Topics - Smoking status: Passive Smoke Exposure - Never Smoker - Smokeless tobacco: Never Used Comment: smoked for 40 years - Alcohol use No REVIEW OF SYSTEM: PAIN ASSESSMENT: Negative for pain, history of chronic pain, or current treatment for a chronic pain condition. GENERAL: No weight loss, malaise or fevers HEENT: Negative for frequent or significant headaches, No changes in hearing or vision, no nose bleeds or other nasal problems NECK: Negative for lumps, goiter, pain and significant neck swelling RESPIRATORY: Negative for cough, hemoptysis, wheezing, positive for shortness of breath CARDIOVASCULAR: Negative for chest pain,palpitations; has chronic leg swelling GI: No nausea, vomiting, or diarrhea : No history of dysuria, frequency or incontinence MUSCULOSKELETAL: Negative for joint pain or swelling, back pain or muscle pain SKIN: As per HPI. Negative for any other lesions, rash, and itching PSYCH: Negative for sleep disturbance, mood disorder and recent psychosocial stressors HEMATOLOGY/LYMPHOLOGY: Negative for prolonged bleeding, bruising easily or swollen nodes ENDOCRINE: Negative for cold or heat intolerance, polyuria, polydipsia and goiter NEURO: No history of headaches, syncope, paralysis, seizures or tremors 11/14/17 0916 BP: 151/78 Pulse: 60 Resp: 16 Temp: 36.6 ?C (97.8 ?F) TempSrc: Oral SpO2: 92% PHYSICAL EXAMINATION: HEENT: PERRLA , sclera non-icteric, EOM intact, mucous membrane moist, pink and w/o lesions Comments: Neck: Supple, no bruit, no masses, trachea midline Comments: Chest: Lungs clear to auscultation, no accessory muscle use for respiration Comments: Heart: Regular rate/rhythm, normal S1,S2, no murmur, rubs or gallops Comments: Abdomen: Soft, non-tender, non-distended, + bowel sounds, no bruit, no organomegaly Comments: Extremity: Dorsalis pedis : Present (Y) Absent Diminished Doppler Posterior Tibialis: Present (Y) Absent Diminished Doppler Capillary Refill: < 3 sec. (Y) > 3 sec. ABIs: Right Left Rubor of Dependency: Negative (Y) Positive (N) Clif[place]-Weistein Examination: Comments: Neuro: Alert AND oriented x3, AUTOMOTIVE SALES REPRESENTATIVE II-XII grossly intact, reflexes 2+ and symmetric, UE/LE 5/5 Comments: Skin: No rashes, no abnormal skin lesions Comments: See wound assessment Most recent laboratory data: 10/14/17 Hemoglobin A1C = 5.8 ?? 10/14/17 WBC 8.4, Hgb 12.2, Hct 38.5, PLT 211, Glu 91, BUN 24, Cr 0.88, Na 136, K 4.7, Cl 100, Albumin 3.6, Total protein 9.1 10/14/17 XR 2 View Tib/Fib (Left) Findings: Left tibia-fibula: Tibial component of the joint prosthesis noted without associated abnormal lucency. No acute fracture or bony destruction. Right tibia and fibula: Plate and screw fixation remote distal fibular fracture. There is also remote tibial fracture with residual posterior angulation. Ghost tracks from previous tibial hardware. Tibial component of the joint prosthesis noted without associated abnormal lucency. No acute fracture or bony destruction. Stereotype Finisher: DWIGHT ? Transcribe Date/Time: Oct 14 2017 ?4:02P Dictated by : ZURDO SANTOS MD 10/14/17 XR 2 View Tib/Fib (Right) Findings: Left tibia-fibula: Tibial component of the joint prosthesis noted without associated abnormal lucency. No acute fracture or bony destruction. Right tibia and fibula: Plate and screw fixation remote distal fibular fracture. There is also remote tibial fracture with residual posterior angulation. Ghost tracks from previous tibial hardware. Tibial component of the joint prosthesis noted without associated abnormal lucency. No acute fracture or bony destruction. Stereotype Finisher: DWIGHT ? Transcribe Date/Time: Oct 14 2017 ?4:02P Dictated by : ZURDO SANTOS MD 10/14/17 XR 2 View Tib/Fib (Left) Findings: Left tibia-fibula: Tibial component of the joint prosthesis noted without associated abnormal lucency. No acute fracture or bony destruction. Right tibia and fibula: Plate and screw fixation remote distal fibular fracture. There is also remote tibial fracture with residual posterior angulation. Ghost tracks from previous tibial hardware. Tibial component of the joint prosthesis noted without associated abnormal lucency. No acute fracture or bony destruction. 11/04/2017 PVR Right and Left Lower Extremities IMPRESSION RIGHT SIDE Resting right ankle brachial index: 1.12 Right toe brachial index: 0.46 ? Normal ankle brachial index at rest in the right leg. Abnormal toe brachial index at rest is evidence of peripheral artery disease. ? Right ankle: Normal at rest. ? Right small vessel disease versus vasoconstriction. ? LEFT SIDE ? Resting left ankle brachial index: 1.00 Left toe brachial index: 0.70 ? Normal ankle brachial index at rest in the left leg. Normal toe brachial index at rest in the left leg. Left ankle: Normal at rest. Left small vessel disease versus vasoconstriction. ? Technologist: Cleo HOBBST Ordering physician: Luis Simons ? Interpreting physician: Vishal Torres MD, RVT ? D ASSESSMENT: IMPRESSION: 1. Chronic venous stasis ulcers bilateral lower extremities PLAN: Wound each flushed with 10 cc of saline solution. Vitamin AANDD ointment liberally applied to both lower legs. Calcium alginate was applied to both wounds. Sites were covered with abd pads and a profore lite compression wrap. Profore Multiple layer Application: A 3- layer system applied to the bilateral lower extremities. A layer of cast padding, crepe bandage, light compression bandage, followed with a layer of coban and stockinet from behind the toes to 1 below the knee. Toes were warm and pink before and post application. + dorsal pedis pulse on palpation. It was demonstrated to the patient how to check for adequate circulation. If the patient exhibits a change in color to the extremity: change in temperature, increased pain, or the compression wrap becomes wet or to tight, the patient has been instructed to remove the wrap or go to the Emergency Department. Patient voices understanding with intent to comply. #1 Right lateral distal leg: caused from too tight leg wraps. Foul odor noted on exam. Sq debridement per provider. L: 3.3 cm x W: 4.0 cm x D: 0.6 cm #2 Right medial distal leg: Broken ankle 1 yr ago per patient. Healed today #3 left distal calf: Caused from too tight of a compression wrap. L: 1.5 cm x W: 1.3 cm x D: 0.15 cm, not debrided Measurements: Right Calf: 39.5 cm Right Ankle: 25.5 cm Left Calf: 36.0 cm Left Ankle: 26 cm PLAN: Home care to visit 3 x weekly PVR's and Venous doppler to be scheduled JUN Rx: Zinc and Doxycycline Copy of wound care instructions faxed to [facility] as patient's request. [phone] Luis Simons CNP CHARGE CAPTURE: [id number] . CNOV Observed: 11/14/2017 Status: COMPLETED Source: [facility] 9:15 AM [facility] OTHER CAMP[facility] REPOSITORY Office Visit ([facility]) DEVINROSA Giselle ([id number]) 1935 F Date Time Provider Department 11/14/17 9:15 AM LUIS SIMONS, (GROUND SYSTEMS ENGINEER) [facility] During your visit today, we recorded the following information about you: Temperature Pulse Respiration Blood pressure 97.8 degrees 60/minute 16/minute 151/78 Tiffanie Humphrey, RN, RN 11/14/2017 10:06 AM Addendum Nursing Note See provider note for wound description and measurements Dressing removed with dakins Saline 0.9% solution applied to all wounds In the presence and direction of the provider wound care as written below: Photos taken Sq debridement done to the rt lateral lower leg. Wounds each flushed with 10 cc of saline solution. Vitamin AANDamp;D ointment liberally applied to both lower legs. Saline moistened endoform applied to the wound bed. Equal parts of silvadene and Iodoflex on top of the endoform. Adaptic applied and secured with 1/2ANDquot; steri-strips. Site covered with 4x4's, and abd pad followed with a profore lite compression wrap. Profore Multiple layer Application: A 3- layer system applied to the bilateral lower extremities. A layer of cast padding, crepe bandage, light compression bandage, followed with a layer of coban and stockinet from behind the toes to 1ANDquot; below the knee. Toes were warm and pink before and post application. + dorsal pedis pulse on palpation. It was demonstrated to the patient how to check for adequate circulation. If the patient exhibits a change in color to the extremity: change in temperature, increased pain, or the compression wrap becomes wet or to tight, the patient has been instructed to remove the wrap or go to the Emergency Department. Patient voices understanding with intent to comply. #1 Right lateral distal leg: Lido gel applied prior to the SQ debridement per provider. L: 2.9 cm x W: 3.8 cm x D: 0.4 cm #2 Right medial distal leg: Broken ankle 1 yr ago per patient. Remains closed #3 left distal calf: Selective debridement done per provider. Wound was caused from too tight of a compression wrap. L: 0.7 cm x W: 0.4 cm x D: 0.1 cm. Zinc oxide applied to the wound bed followed with an abd pad and secured with a Profore 3-layer wrap. Measurements: Right Calf: 36.5 cm Right Ankle: 29 cm Left Calf: 37.5 cm Left Ankle: 24.2 cm PLAN: Home care to perform every 3 day dressing change Insurance authorization will be submitted for Angeline Richard to bring with her to the wound center circaid wraps to be ordered Follow up with Dr. Bethany barahona Use compression pumps twice daily with 40-50 mmhg compression Copy of wound care instructions faxed to [facility] as patient's request. [phone] EDUCATION: The patient/family was instructed how to wash the wound(s) with dial soap, rinsing with water, ANDamp; patting dry. Visual demonstration on how to apply the dressing. Signs ANDamp; symptoms of infection were reviewed: Increased redness, swelling, pain, green, yellow drainage, fever or chills all would need to be evaluated by a Physician. Patient received typed homegoing wound care instructions and has expressed intent to comply. Tiffanie Humphrey, RN, RN 11/14/2017 9:47 AM Addendum WOUND CARE INSTRUCTIONS Wound location: Right medial distal leg/Right lateral distal leg/Left calf 1. Wash your hands with soap and water before and after wound care. 2. Gather all supplies needed. 3. Wash wound with Dial soap and water. Pat dry. Moisturize lower leg and foot with vitamin AANDamp;D 4. Apply saline moistened endoform to the wound base Cover endoform with equal parts of Iodoflex and silvadene(Mixing well) 5. Cover with 4x4's, abd pad 6. Secure dressing with Profore 3-layer compression wrap 7. Home Care to change your dressing every 3 days Left leg: Apply zinc oxide to the wound bed Cover with an abd pad Change dressing every 3 days Secure dressing with a Profore 3-layer wrap Profore wraps 3-layer: ? Cast cover may be used to allow you to shower ? Remove compression wraps if they become uncomfortable or cause change in color or sensation to the extremity. Rewrap as instructed. To give your wound the best chance to heal: - Eat three balanced meals daily focusing on the protein - Control swelling by elevating the extremity above your heart - exercise the extremity - Complete your wound care instructions - Vitamin C 500 mg twice daily - Multiple Vitamin Daily - Drink a protein shake daily - continue home care Report any of the following changes to the Wound Center at [phone] or go to the Emergency Department: ? Fever or chills ? Increased drainage ? Green or yellow drainage ? Foul odor ? Increased pain ? Hardness around the wound ? Redness, warmth or swelling of the surrounding tissue ? Color change to the wound Return to the Wound Center in 1 week to see Marlen Follow up with Dr. Bethany BARAHONA to review vascular studies in her office Begin using compression pumps - run with 40-50 mmhg of compression twice daily (Call company to have pumps set to proper compression) Luis Simons CNP/samm Simons CNP, GROUND SYSTEMS ENGINEER 11/29/2017 2:08 PM Addendum DATE OF VISIT: 11/14/2017 REASON FOR VISIT: Non-healing lower extremity wound. HISTORY OF PRESENT ILLNESS: Rosa Beltran is a 81 year old female who presents to the [facility] for further evaluation and management of a non-healing leg wound. She has a past medical history significant for atrial fibrillation on Coumadin, coronary artery disease,?COPD, hypertension, dyslipidemia and CHF.?Patient has felt mildly short of breath over the past month. ?Increase with exertion and lying flat. She is on 40 mg of Lasix twice a day. She still is urinating appropriately. She has not had any chest pain or palpitations. ?Fever, chills, or sweats. ?No productive cough. ?No wheezing. Upon taking patients vitals, her SPO2 level was from 76% - 85%. Patient stated she had shortness of breath. She was unable to finish her sentences without catching her breath. The tips of her fingers were cyanotic. Patient was sent to the ER for further evaluation. Tiffanie BARBOSA wheeled patient to the ER. INTERVAL HISTORY: Patient was sent tot he ED during her previous visit due to low oxygenation. She is now on 2 L of oxygen at all times. She denies any breathing difficulty at this time. She is an 81 year old white female with a long-standing history of swelling in her lower extremities secondary to lymphedema. Approximately 2 years ago, she sustained a fracture to her right ankle, requiring surgical intervention. The operative site became infected, and required prolonged treatment and eventually a skin graft for complete wound closure. As a result, the patient's ambulatory capacity has been impaired. Furthermore, she is morbidly obese which limits her ambulation. The patient leads a relatively sedentary lifestyle and requires a walker for ambulation. She spends a great part of her day in a sitting position. She sleeps with the head of the bed elevated. Swelling in her lower extremities has been on-going for many years. The patient has undergone a battery of diagnostic tests. A non-invasive lower extremity arterial study in December 2016 reveals normal-ankle brachial indices, bilaterally. Venous doppler examination on 01/14 reveals incompetence of the great saphenous veins, bilaterally. There is also incompetence of the small saphenous veins, bilaterally and the right accessory saphenous vein. At present, she has three wounds, 2 on the right distal leg and the other is on the left posterior calf. The left leg wound has been present for over a year and was managed with silver alginate, NPWT, Santyl, serial sharp wound debridements, compression therapy using Surepress and compression pumps. Patient's wound cultures over the past several months have grown out Enterobacter cloacae, MRSA, coag-staph aureus, and in January grew out Pseudomonas, managed with oral antibiotics. IIn July of this year, she developed a new wound on the right lateral distal leg, then in July, she experience cellulitis of both legs requiring hospitalization. In the last year, she has been followed by Dr. Jaskaran Chance at the [facility] [place]. It was felt that her home support system was inadequate and that she may not have the resources in her home environment to appropriately care for her needs. In this regard, a geriatric social work professor consultation had been recommended on several occassions, but patient apparently insisted on remaining in her home environment despite that there was thought that is may be less than optimal. The patient is here at the [facility] for a second opinion regarding management of the abovementioned bilateral lower extremity wounds. She offers no other complaints. She denies any fevers, chills, wound-related pain or other related symptoms. 11/14/17 Patient presents for follow-up. Overall, her lower extremity wounds are progressing favorably. One of the three is now healed. The remaining two show evidence of wound contraction and granulation tissue formation. To date, wounds have been managed with sharp debridement, collagen dressing and oral antibiotics and nutritional support. She offers no new complaints. The edema in her lower extremities is well-controlled. She denies any fever, chills or other related symptoms. PAST MEDICAL HISTORY Diagnosis Date - Acquired hypothyroidism - Acute respiratory failure with hypoxia ([facility]) 09/30/2017 - Atrial fibrillation ([facility]) - CAD (coronary artery disease) Dr. Brenda Awan Hts, Promus element KIMMY LAD 11/20/2012, Stress test 04/2014 inferoapical reversible ischemia,small LVEF 48-50%, LHC 12/2014 L main-normal, LAD widely patent, Cx diffuse mild luminal irregularities with 80%focal stenosis distal, RCA dominant with minimal luminal irregularities. 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 - TOTAL KNEE REPLACEMENT Left 2004 [facility]. MEDICATIONS ergocalciferol, vitamin D2, (DRISDOL) 50,000 unit capsule Take 1 capsule by mouth once each week. levothyroxine (LEVOXYL) 100 mcg tablet Take 1 tablet by mouth once daily. Take on empty stomach. For Thyroid. gabapentin (NEURONTIN) 300 mg capsule Take 1 capsule by mouth twice daily. metoprolol tartrate, short acting, (LOPRESSOR) 50 mg tablet TAKE ONE TABLET BY MOUTH TWICE DAILY furosemide (LASIX) 40 mg tablet Take 1 tablet by mouth twice daily. COMPOUNDED PRESCRIPTION Calcium Alginate 4x4 Dressing, change daily Dx: Blister left leg with infection S80.822A, L08.9; Lymphedema I89.0. Wound dimensions: 4 x 3 cm acetaminophen (TYLENOL) 500 mg tablet Take 1,000 mg by mouth every 8 hours as needed. aspirin, enteric coated (ASPIRIN, ENTERIC COATED) 81 mg EC tablet Take 81 mg by mouth once daily. warfarin (COUMADIN) 1 mg tablet Take 1 mg by mouth daily as directed. Take 1 tablet (1mg) by mouth once daily. Take with 1 x 3mg tablet to total 4mg by mouth once daily. warfarin (COUMADIN) 3 mg tablet Take 3 mg by mouth daily as directed. Take 1 tablet (3mg) by mouth once daily. Take with 1 x 1mg tablet to total 4mg by mouth once daily. lisinopril (ZESTRIL) 2.5 mg tablet Take 2.5 mg by mouth once daily. omeprazole (PRILOSEC) 20 mg capsule Take 20 mg by mouth once daily. spironolactone (ALDACTONE) 25 mg tablet Take 25 mg by mouth once daily. docusate sodium (COLACE) 100 mg capsule Take 100 mg by mouth once daily as needed. therapeutic multivitamin w/ iron (THERAGRAN-M) 9 mg iron-400 mcg tablet Take 1 tablet by mouth once daily. ALLERGIES No Known Allergies FAMILY HISTORY: Patient's father in his 70s with a history of arthritis. Her mother at the age of 90 with a history of arthritis. SOCIAL HISTORY Patient is a , lives alone, but has a son nearby. She has 6 children. Substance Use Topics - Smoking status: Passive Smoke Exposure - Never Smoker - Smokeless tobacco: Never Used Comment: smoked for 40 years - Alcohol use No REVIEW OF SYSTEM: PAIN ASSESSMENT: Negative for pain, history of chronic pain, or current treatment for a chronic pain condition. GENERAL: No weight loss, malaise or fevers HEENT: Negative for frequent or significant headaches, No changes in hearing or vision, no nose bleeds or other nasal problems NECK: Negative for lumps, goiter, pain and significant neck swelling RESPIRATORY: Negative for cough, hemoptysis, wheezing, positive for shortness of breath CARDIOVASCULAR: Negative for chest pain,palpitations; has chronic leg swelling GI: No nausea, vomiting, or diarrhea : No history of dysuria, frequency or incontinence MUSCULOSKELETAL: Negative for joint pain or swelling, back pain or muscle pain SKIN: As per HPI. Negative for any other lesions, rash, and itching PSYCH: Negative for sleep disturbance, mood disorder and recent psychosocial stressors HEMATOLOGY/LYMPHOLOGY: Negative for prolonged bleeding, bruising easily or swollen nodes ENDOCRINE: Negative for cold or heat intolerance, polyuria, polydipsia and goiter NEURO: No history of headaches, syncope, paralysis, seizures or tremors 11/14/17 0915 BP: 149/83 Pulse: 58 Resp: 20 Temp: 36.6 ?C (97.8 ?F) TempSrc: Oral SpO2: 95% Weight: 88.1 kg (194 lb 4.8 oz) PHYSICAL EXAMINATION: HEENT: PERRLA , sclera non-icteric, EOM intact, mucous membrane moist, pink and w/o lesions Comments: Neck: Supple, no bruit, no masses, trachea midline Comments: Chest: Lungs clear to auscultation, no accessory muscle use for respiration Comments: Heart: Regular rate/rhythm, normal S1,S2, no murmur, rubs or gallops Comments: Abdomen: Soft, non-tender, non-distended, + bowel sounds, no bruit, no organomegaly Comments: Extremity: Dorsalis pedis : Present (Y) Absent Diminished Doppler Posterior Tibialis: Present (Y) Absent Diminished Doppler Capillary Refill: ANDlt; 3 sec. (Y) ANDgt; 3 sec. ABIs: Right Left Rubor of Dependency: Negative (Y) Positive (N) [place]if[place]-Weistein Examination: Comments: Measurements: Right Calf: 36.5 cm Right Ankle: 29 cm Left Calf: 37.5 cm Left Ankle: 24.2 cm Neuro: Alert ANDamp; oriented x3, AUTOMOTIVE SALES REPRESENTATIVE II-XII grossly intact, reflexes 2+ and symmetric, UE/LE 5/5 Comments: Skin: No rashes, no abnormal skin lesions Comments: See wound assessment Most recent diagnostic/laboratory data: 10/14/17 Hemoglobin A1C = 5.8 ?? 10/14/17 WBC 8.4, Hgb 12.2, Hct 38.5, PLT 211, Glu 91, BUN 24, Cr 0.88, Na 136, K 4.7, Cl 100, Albumin 3.6, Total protein 9.1 11/04/17 Venous Doppler Study Bilateral Lower Extremities IMPRESSION RIGHT SIDE - DEEP VEINS Negative for acute deep vein thrombosis in vessels visualized. Positive for valvular incompetency in the common femoral vein and femoral vein. Lymph node noted, within the groin, measuring 2.75 x 2.71 x .809cm. Cystic structure noted, within the popliteal fossa, measuring 2.17 x 2.67 x 1.49cm. ? RIGHT SIDE - SUPERFICIAL VEINS Positive for valvular incompetency in the great saphenous vein. REFLUX ONLY NOTED AT PROXIMAL THIGH. Vessel becomes tortuous branching from proximal to distal calf. The anterior lateral branch is negative for incompetency. Positive for valvular incompetency in the small saphenous vein. REFLUX ONLY NOTED AT DISTAL CALF. LEFT SIDE - DEEP VEINS Negative for acute deep vein thrombosis in vessels visualized. Positive for valvular incompetency in the femoral vein at the mid thigh. LEFT SIDE - SUPERFICIAL VEINS Positive for valvular incompetency in the great saphenous vein. REFLUX ONLY NOTED AT MID CALF. Negative for valvular incompetency in the small saphenous vein. No previous scans for comparison; however, chronic appearing superficial thrombophlebitis in the great saphenous vein at the distal calf. ? Technologist: Cleo Magdaleno RVT Ordering physician: Luis Simons ? Interpreting physician: Vishal Torres MD, SHREE ? 01/24/17 Segmental arterial doppler study bilateral lower extremities Findings: NIMISHA 1.04 to the right and 1.0 to the left. Based upon the findings of this resting non-invasive lower extremity arterial study, arterial perfusion to ankle level appears to be relatively normal bilaterally. Triphasic and biphasic waveforms were noted at ankle level bilaterally. Resting ankle- brachial indices were bilaterally normal. ? 08/01/17 X-Ray 3-View Right Ankle Impression: There is prior open reduction internal fixation of the fibula which appears to be relatively intact allowing for advanced bony osteopenia. There is an irregular appearance of the lateral side distal tibia which is compatible with a prior fracture for which a new fracture on the lateral side is not excluded. The fracture could be potentially be associated with new trauma or potentially infection. Recommend consideration for follow- up study such as MRI or potentially three-phase bone scan. ? Flattened appearance of the arch of the foot with degenerative change of the tarsotarsal joints. ? Diffuse soft tissue swelling. ? Electronically Signed: Kelly Camarena MD at 20:15 EDT Tel , Service support , ? 10/14/17 XR 2 View Tib/Fib (Left) Findings: Left tibia-fibula: Tibial component of the joint prosthesis noted without associated abnormal lucency. No acute fracture or bony destruction. Right tibia and fibula: Plate and screw fixation remote distal fibular fracture. There is also remote tibial fracture with residual posterior angulation. Ghost tracks from previous tibial hardware. Tibial component of the joint prosthesis noted without associated abnormal lucency. No acute fracture or bony destruction. ? Stereotype Finisher: DWIGHT ? Transcribe Date/Time: Oct 14 2017 ?4:02P Dictated by : ZURDO SANTOS MD ? 10/14/17 XR 2 View Tib/Fib (Right) Findings: Left tibia-fibula: Tibial component of the joint prosthesis noted without associated abnormal lucency. No acute fracture or bony destruction. Right tibia and fibula: Plate and screw fixation remote distal fibular fracture. There is also remote tibial fracture with residual posterior angulation. Ghost tracks from previous tibial hardware. Tibial component of the joint prosthesis noted without associated abnormal lucency. No acute fracture or bony destruction. ? Stereotype Finisher: DWIGHT ? Transcribe Date/Time: Oct 14 2017 ?4:02P Dictated by : ZURDO SANTOS MD ? 10/14/17 XR 2 View Tib/Fib (Left) Findings: Left tibia-fibula: Tibial component of the joint prosthesis noted without associated abnormal lucency. No acute fracture or bony destruction. Right tibia and fibula: Plate and screw fixation remote distal fibular fracture. There is also remote tibial fracture with residual posterior angulation. Ghost tracks from previous tibial hardware. Tibial component of the joint prosthesis noted without associated abnormal lucency. No acute fracture or bony destruction. WOUND ASSESSMENT: Wound Number: 1 First Assessed Date: 10/14/17 Pre-existing: YES Location: Leg Orientation: Right, Lateral and Distal Wound Etiology: Venous Depth of Tissue Injury (Non-pressure): Full Thickness Diabetic Wounds:N/A Pressure Injury: N/A Pre-Measurements Initial (First Visit): 3.5 cm length x 4.0 cm width x 0.5 cm depth Post Measurement (Current): 2.9 cm length x 3.8 cm width x 0.4 cm depth % Healing Rate/#Weeks: 37.5 % -- Week 4 Wound Bed (Post-debridement): 100% red % of Healthy tissue: Undermining: No Tunneling: No Tendon/bone exposed: NO Wound Edge/Margins: Irregular wound edges and Edge attached to base Periwound Tissue: Mild erythema, Wet (macerated), and Edema Exudate Amount:Moderate Consistency:Serous Odor:Minimal Infection/Critical Colonization Localized s/s: Non-healing and Increased exudate Systemic s/s: None Local/systemic Rx: None Wound Healing Status: Chronic Clinically presenting as: Stalled wound healing Current topical treatment: Iodoflex Wound Number: 2 First Assessed Date: 10/14/17 Pre-existing: YES Location: Leg Orientation: Right, Medial and Distal Wound Etiology: Surgical Depth of Tissue Injury (Non-pressure): Partial Thickness Diabetic Wounds:N/A Pressure Injury: N/A Pre-Measurements Initial (First Visit): 0.5 cm length x 0.4 cm width x 0.1 cm depth Post Measurement (Current): Epithelialized % Healing Rate/#Weeks: Week 1 -- Healed Wound Bed (Post-debridement): % of Healthy tissue: Undermining: No Tunneling: No Tendon/bone exposed: NO Wound Edge/Margins: Normal, intact, Irregular wound edges and Edge attached to base Periwound Tissue: Normal, intact,uninvolved tissue and Dry,flaky Exudate Amount: None Consistency: None Odor:None Infection/Critical Colonization Localized s/s: None and Edema Systemic s/s: None Local/systemic Rx: None Wound Healing Status: Chronic Clinically presenting as: Healed Current topical treatment: Iodoflex Wound Number: 3 First Assessed Date: 10/14/17 Pre-existing: YES Location: Leg (calf) Orientation: Left and Posterior Wound Etiology: Venous Depth of Tissue Injury (Non-pressure): Full Thickness Diabetic Wounds:N/A Pressure Injury: N/A Pre-Measurements Initial (First Visit): 1.3 cm length x 1.2 cm width x 0.1 cm depth Post Measurement (Current): 0.7 cm length x 0.4 cm width x 0.1 cm depth % Healing Rate/#Weeks: 82.1 % -- Week 4 Wound Bed (Post-debridement): 100% red % of Healthy tissue: Undermining: No Tunneling: No Tendon/bone exposed: NO Wound Edge/Margins: Well-defined wound edges and Edge attached to base Periwound Tissue: Mild circumferential erythema, No fluctuance, induration or advancing soft tissue necrosis or ischemia Exudate Amount:Scant/Minimal Consistency:Serous Odor:None Infection/Critical Colonization Localized s/s: Non-healing and Edema Systemic s/s: None Local/systemic Rx: None Wound Healing Status: Chronic Clinically presenting as: Stalled wound healing Current topical treatment: Dry gauze pad IMPRESSION: 1. Non-healing right and left lower extremity wounds ( #1 and #3) in the setting of chronic venous insufficiency with secondary lymphedema. 2. Recurrent right medial leg wound s/p STSG in the setting of chronic edema. 3. Significant lower extremity edema secondary to underlying chronic venous insufficiency with secondary lymphedema. 4. Multiple risk factors or co-morbidities that may contribute to wound healing difficulties include hypothyroid disease, chronic atrial fibrillation on anticoagulation, coronary artery disease, COPD, dyslipidemia, hypertension, muscle weakness, osteoarthritis, GERD, depression and obesity. 5. Wound cultures positive for Enterobacter cloacae and Staph aureus most likely increased colonization. 6. Very good glucose control based on recent HgbA1c. 7. Zinc insufficiency ( precursor for collagen synthesis. 8. No significant arterial disease based on recent PVRs. 9. No evidence of osteomyelitis based on recent XRs. 10. Valvular incompetency involving the right common femoral vein , right femoral vein, right great saphenous vein, left femoral vein (mid thigh) and left great saphenous vein (mid thigh). TREATMENT PLAN: Debridement Type: Autolytic Enzymatic Mechanical Surgical Sharp (Y) Other: ?? Sharp debridement is performed to ANDquot;freshen upANDquot; the wound and stimulate the healing cascade. It allows the wound to progress from the inflammatory to the proliferative phase of wound healing. Wound Dressing: See Nursing Notes for details. . Topical Rx: Wounds each flushed with 10 cc of saline solution. Vitamin AANDamp;D ointment liberally applied to both lower legs. Saline moistened endoform applied to the wound bed. Equal parts of silvadene and Iodoflex on top of the endoform. Adaptic applied and secured with 1/2ANDquot; steri- strips. Site covered with 4x4's, and abd pad followed with a profore lite compression wrap. Home care to perform dressing change every 3 days. Compression therapy: Profore Multiple layer Application: A 3- layer system applied to the bilateral lower extremities. A layer of cast padding, crepe bandage, light compression bandage, followed with a layer of coban and stockinet from behind the toes to 1ANDquot; below the knee. Toes were warm and pink before and post application. + dorsal pedis pulse on palpation. It was demonstrated to the patient how to check for adequate circulation. If the patient exhibits a change in color to the extremity: change in temperature, increased pain, or the compression wrap becomes wet or to tight, the patient has been instructed to remove the wrap or go to the Emergency Department. Patient voices understanding with intent to comply. Pt instructed continue with leg elevation whenever possible to promote venous return to the heart. CirAids to be ordered for maintenance therapy. Use pneumatic compression pumps twice daily with 40-50 mmhg compression Systemic Rx: Doxycycline 100 mg by mouth twice daily x 14 days and zinc 220 mg by mouth daily x 14 days completed.. Nutritional Support: MVI, Zinc Supplement and Protein Supplement Patient is instructed to continue a healthy, well-balanced diet for nutritional support for optimal healing. Protein is the most important nutrient for wound healing. Eating adequate amounts of protein allows the body to create new cells and chemicals to heal the wound, and increases the body?s ability to fight infection. Eating high protein foods daily is recommended such as: lean meats, fish, poultry, cheese, milk, yogurt, eggs and legumes. Vitamins and minerals provide a full range of nutrients for wound healing. It can help ANDquot;jump startANDquot; the body's production of cells and chemicals needed for healing. Vitamins and minerals can be obtained through healthy foods in your diet and by taking a multiple vitamin supplement. Vitamin C is essential for collagen synthesis. Collagen and fibroblasts compose the basis for the structure of a new wound bed. Also, a deficiency of Vitamin C prolongs the healing time and contributes to reduced resistance to infection. Laboratory: We will obtain wound cultures to determine bacterial load. Results positive for few Enterobacter cloacae complex and many Staph aureus. No anaerobic organisms or fungal elements. Wound cultures are collected to assess level of bacterial bio-burden. Excessive bio-burden can result in inflammatory and proliferative phase stagnation as well as compromise of normal wound healing physiology. Bacterial proliferation, biofilm production, critical colonization and the development of resistant organism can lead to wound infection, wound deterioration and devastating tissue loss. Knowing the organism that populated the wound can help direct therapy, particularly anti-microbial dressing choices. Vascular Evaluation: PVRs for both lower extremities to evaluate for arterial insufficiency to see if poor circulation is an issue regarding her slow healing. Based on vascular studies, patient to see Dr. Liil Mcnair for further evaluation and management of venous disease (valvular incompetency). Follow-up is scheduled in 1 week, sooner with any concerns or worsening symptoms. Luis Simons CNP Charge Capture: [id number] Tiffanie Humphrey RN, RN 11/15/2017 12:54 PM Signed Message sent from [employer] that the order was sent to her detention facility Luis Simons, LOI, GROUND SYSTEMS ENGINEER 11/21/2017 6:15 AM Signed A procedural pause was conducted immediately prior to starting the wound debridement to verify correct patient identity using two patient identifiers: the correct site and correct procedure. Permission from the patient to perform the procedure was obtained. After providing local analgesia with Lidocaine 2% gel, a full-thickness excisional debridement of the right and left leg wounds was performed and carried through the skin and subcutaneous tissue, using a sterile #15 blade, iris scissors, and forceps to remove the non-viable or devitalized tissue. The debridement extended into the viable wound margin/s to promote a healthy, active wound edge to support healing. The patient tolerated the procedure well without complications. Hemostasis was achieved with direct pressure. The wound/s was/were then copiously irrigated with sterile normal saline and dressings were applied. 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) [L97.912] Other Visit Diagnosis:Venous insufficiency (chronic) (peripheral) [I87.2] Prescriptions as of 11/14/2017 Sig: SILVER SULFADIAZINE 1 % TOPIC* Apply to leg wounds as direct* ACETAMINOPHEN 500 MG TABLET Take 1,000 mg by mouth every * ASPIRIN 81 MG TABLET,DELAYED * Take 81 mg by mouth once oliver* WARFARIN 1 MG TABLET Take 1 mg by mouth daily as d* WARFARIN 3 MG TABLET Take 3 mg by mouth daily as d* LISINOPRIL 2.5 MG TABLET Take 2.5 mg by mouth once yuly* OMEPRAZOLE 20 MG CAPSULE,LUIS MIGUEL* Take 20 mg by mouth once oliver* SPIRONOLACTONE 25 MG TABLET Take 25 mg by mouth once oliver* DOCUSATE SODIUM 100 MG CAPSULE Take 100 mg by mouth once yuly* MULTIVITAMIN-IRON 9 MG-FOLIC * Take 1 tablet by mouth once d* ERGOCALCIFEROL (VITAMIN D2) 5* Take 1 capsule by mouth once * LEVOTHYROXINE 100 MCG TABLET Take 1 tablet by mouth once d* GABAPENTIN 300 MG CAPSULE Take 1 capsule by mouth twice* METOPROLOL TARTRATE 50 MG TAB* TAKE ONE TABLET BY MOUTH TWIC* FUROSEMIDE 40 MG TABLET Take 1 tablet by mouth twice * COMPOUNDED PRESCRIPTION Calcium Alginate 4x4 Dressing* ZINC SULFATE 220 MG TABLET Take 1 tablet by mouth once d* Problem List As Of Date 11/14/2017 Noted Resolved Gastroesophageal reflux disease without esophag*INVALID FOR* Chronic atrial fibrillation (HCC) [I48.2] INVALID FOR* Priority: B Pure hypercholesterolemia [E78.00] Hypertension [I10] Priority: D More... Acquired hypothyroidism [E03.9] CAD (coronary artery disease) [I25.10] More... Depressive disorder [F32.9] INVALID FOR*07/18/2017 Primary osteoarthritis involving multiple joint*INVALID FOR* Lymphedema of both lower extremities [I89.0] INVALID FOR* Mouth dryness [R68.2] INVALID FOR* Muscular weakness [M62.81] INVALID FOR* Dorsalgia [M54.9] INVALID FOR* Stented coronary artery [Z95.5] INVALID FOR* Priority: A Gastric bypass status for obesity [Z98.84] INVALID FOR* Priority: C Bilateral leg ulcer (HCC) [L97.919, L97.929] INVALID FOR* Priority: E More... Polyneuropathy (HCC) [G62.9] INVALID FOR* Cecal ulcer [K63.3] INVALID FOR* Acute respiratory failure with hypoxia (HCC) [J*INVALID FOR*10/10/2017 Priority: Severe Anticoagulation goal of INR 2 to 3 [Z51.81, Z79*INVALID FOR* Priority: Mild More... ANASARCA/HYPOXIA 09/30/17 ADMISSION SUMMARY [Z9*INVALID FOR* Priority: Very Severe More... Skin bulla [R23.8] INVALID FOR* Priority: Mild More... Respiratory failure with hypoxia (HCC) [J96.91] INVALID FOR* Priority: Severe Heart failure with preserved ejection fraction *INVALID FOR* Priority: A More... Physical debility [R53.81] INVALID FOR* Priority: Moderate More... Requires continuous at home supplemental oxygen*INVALID FOR* More... Other instructions from your clinician: WOUND CARE INSTRUCTIONS Wound location: Right medial distal leg/Right lateral distal leg/Left calf 1. Wash your hands with soap and water before and after wound care. 2. Gather all supplies needed. 3. Wash wound with Dial soap and water. Pat dry. Moisturize lower leg and foot with vitamin AANDD 4. Apply saline moistened endoform to the wound base Cover endoform with equal parts of Iodoflex and silvadene(Mixing well) 5. Cover with 4x4's, abd pad 6. Secure dressing with Profore 3-layer compression wrap 7. Home Care to change your dressing every 3 days Left leg: Apply zinc oxide to the wound bed Cover with an abd pad Change dressing every 3 days Secure dressing with a Profore 3-layer wrap Profore wraps 3-layer: ? Cast cover may be used to allow you to shower ? Remove compression wraps if they become uncomfortable or cause change in color or sensation to the extremity. Rewrap as instructed. To give your wound the best chance to heal: - Eat three balanced meals daily focusing on the protein - Control swelling by elevating the extremity above your heart - exercise the extremity - Complete your wound care instructions - Vitamin C 500 mg twice daily - Multiple Vitamin Daily - Drink a protein shake daily - continue home care Report any of the following changes to the Wound Center at [phone] or go to the Emergency Department: ? Fever or chills ? Increased drainage ? Green or yellow drainage ? Foul odor ? Increased pain ? Hardness around the wound ? Redness, warmth or swelling of the surrounding tissue ? Color change to the wound Return to the Wound Center in 1 week to see Marlen Follow up with Dr. Bethany BARAHONA to review vascular studies in her office Begin using compression pumps - run with 40-50 mmhg of compression twice daily (Call company to have pumps set to proper compression) Luis Simons GROUND SYSTEMS ENGINEER/mjl Visit Notes: >> Tiffanie (Rn) ELENA Humphrey TueNov 14, 2017 9:31 AM Status: Addendum Nursing Note See provider note for wound description and measurements Dressing removed with dakins Saline 0.9% solution applied to all wounds In the presence and direction of the provider wound care as written below: Photos taken Sq debridement done to the rt lateral lower leg. Wounds each flushed with 10 cc of saline solution. Vitamin AANDD ointment liberally applied to both lower legs. Saline moistened endoform applied to the wound bed. Equal parts of silvadene and Iodoflex on top of the endoform. Adaptic applied and secured with 1/2 steri-strips. Site covered with 4x4's, and abd pad followed with a profore lite compression wrap. Profore Multiple layer Application: A 3- layer system applied to the bilateral lower extremities. A layer of cast padding, crepe bandage, light compression bandage, followed with a layer of coban and stockinet from behind the toes to 1 below the knee. Toes were warm and pink before and post application. + dorsal pedis pulse on palpation. It was demonstrated to the patient how to check for adequate circulation. If the patient exhibits a change in color to the extremity: change in temperature, increased pain, or the compression wrap becomes wet or to tight, the patient has been instructed to remove the wrap or go to the Emergency Department. Patient voices understanding with intent to comply. #1 Right lateral distal leg: Lido gel applied prior to the SQ debridement per provider. L: 2.9 cm x W: 3.8 cm x D: 0.4 cm #2 Right medial distal leg: Broken ankle 1 yr ago per patient. Remains closed #3 left distal calf: Selective debridement done per provider. Wound was caused from too tight of a compression wrap. L: 0.7 cm x W: 0.4 cm x D: 0.1 cm. Zinc oxide applied to the wound bed followed with an abd pad and secured with a Profore 3-layer wrap. Measurements: Right Calf: 36.5 cm Right Ankle: 29 cm Left Calf: 37.5 cm Left Ankle: 24.2 cm PLAN: Home care to perform every 3 day dressing change Insurance authorization will be submitted for Bennet Jose Manuel to bring with her to the wound center circaid wraps to be ordered Follow up with Dr. Bethany barahona Use compression pumps twice daily with 40-50 mmhg compression Copy of wound care instructions faxed to [facility] as patient's request. [phone] EDUCATION: The patient/family was instructed how to wash the wound(s) with dial soap, rinsing with water, AND patting dry. Visual demonstration on how to apply the dressing. Signs AND symptoms of infection were reviewed: Increased redness, swelling, pain, green, yellow drainage, fever or chills all would need to be evaluated by a Physician. Patient received typed homegoing wound care instructions and has expressed intent to comply. >> Tiffanie (Rn) ELENA Humphrey Nov 15, 2017 12:53 PM Status: Signed Message sent from [facility] that the order was sent to her detention facility Encounter Status:Closed by LUIS SIMONS on 11/21/17 PROCEDURE Observed: 11/14/2017 Status: COMPLETED Source: VICTOR 5:58 AM [facility] REPOSITORY HNO ID: [id number] Author: Luis Rodriguez) LOI Simons Service: (none) Author Type: Nurse Practitioner Type: Procedures Filed: 11/14/2017 6:02 AM Note Text: A procedural pause was conducted immediately prior to starting the wound debridement to verify correct patient identity using two patient identifiers: the correct site and correct procedure. Permission from the patient to perform the procedure was obtained. After providing local analgesia with Lidocaine 2% gel, a full-thickness excisional debridement of the right and left leg wounds was performed and carried through the skin and subcutaneous tissue, using a sterile #15 blade, iris scissors, and forceps to remove the non-viable or devitalized tissue. The debridement extended into the viable wound margin/s to promote a healthy, active wound edge to support healing. The patient tolerated the procedure well without complications. Hemostasis was achieved with direct pressure. The wound/s was/were then copiously irrigated with sterile normal saline and dressings were applied. CNOV Observed: 11/04/2017 Status: COMPLETED Source: VICTOR 2:15 PM [facility] REPOSITORY Office Visit ([facility]) ROSA BELTRAN ([id number]) 1935 F Date Time Provider Department 11/04/17 2:15 PM LUIS SIMONS, (LOI) [facility] During your visit today, we recorded the following information about you: Temperature Pulse Respiration Blood pressure 97.9 degrees 58/minute 20/minute 149/83 Luis Simons CNP, LOI 11/29/2017 1:17 PM Addendum DATE OF VISIT: 11/04/2017 REASON FOR VISIT: Non-healing lower extremity wound. HISTORY OF PRESENT ILLNESS: Rosa Beltran is a 81 year old female who presents to the [facility] for further evaluation and management of a non-healing leg wound. She has a past medical history significant for atrial fibrillation on Coumadin, coronary artery disease,?COPD, hypertension, dyslipidemia and CHF.?Patient has felt mildly short of breath over the past month. ?Increase with exertion and lying flat. She is on 40 mg of Lasix twice a day. She still is urinating appropriately. She has not had any chest pain or palpitations. ?Fever, chills, or sweats. ?No productive cough. ?No wheezing. Upon taking patients vitals, her SPO2 level was from 76% - 85%. Patient stated she had shortness of breath. She was unable to finish her sentences without catching her breath. The tips of her fingers were cyanotic. Patient was sent to the ER for further evaluation. Tiffanie BARBOSA wheeled patient to the ER. INTERVAL HISTORY: Patient was sent tot he ED during her previous visit due to low oxygenation. She is now on 2 L of oxygen at all times. She denies any breathing difficulty at this time. She is an 81 year old white female with a long-standing history of swelling in her lower extremities secondary to lymphedema. Approximately 2 years ago, she sustained a fracture to her right ankle, requiring surgical intervention. The operative site became infected, and required prolonged treatment and eventually a skin graft for complete wound closure. As a result, the patient's ambulatory capacity has been impaired. Furthermore, she is morbidly obese which limits her ambulation. The patient leads a relatively sedentary lifestyle and requires a walker for ambulation. She spends a great part of her day in a sitting position. She sleeps with the head of the bed elevated. Swelling in her lower extremities has been on-going for many years. The patient has undergone a battery of diagnostic tests. A non-invasive lower extremity arterial study in December 2016 reveals normal-ankle brachial indices, bilaterally. Venous doppler examination on 01/14 reveals incompetence of the great saphenous veins, bilaterally. There is also incompetence of the small saphenous veins, bilaterally and the right accessory saphenous vein. At present, she has three wounds, 2 on the right distal leg and the other is on the left posterior calf. The left leg wound has been present for over a year and was managed with silver alginate, NPWT, Santyl, serial sharp wound debridements, compression therapy using Surepress and compression pumps. Patient's wound cultures over the past several months have grown out Enterobacter cloacae, MRSA, coag-staph aureus, and in January grew out Pseudomonas, managed with oral antibiotics. IIn July of this year, she developed a new wound on the right lateral distal leg, then in July, she experience cellulitis of both legs requiring hospitalization. In the last year, she has been followed by Dr. Jaskaran Chance at the [facility]. It was felt that her home support system was inadequate and that she may not have the resources in her home environment to appropriately care for her needs. In this regard, a geriatric social work professor consultation had been recommended on several occassions, but patient apparently insisted on remaining in her home environment despite that there was thought that is may be less than optimal. The patient is here at the [facility] for a second opinion regarding management of the abovementioned bilateral lower extremity wounds. She offers no other complaints. She denies any fevers, chills, wound-related pain or other related symptoms. 11/04/17 Patient presents for follow-up. Overall, her lower extremity wounds are progressing favorably. One of the three is now healed. The remaining two show evidence of wound contraction and granulation tissue formation. To date, wounds have been managed with sharp debridement, antibacterial dressing and oral antibiotics and nutritional support. She offers no new complaints. The edema in her lower extremities is well-controlled. She denies any fever, chills or other related symptoms. PAST MEDICAL HISTORY Diagnosis Date - Acquired hypothyroidism - Acute respiratory failure with hypoxia (HCC) 09/30/2017 - Atrial fibrillation (HCC) - CAD (coronary artery disease) Dr. Brenda Awan [facility], Promus element KIMMY LAD 11/20/2012, Stress test 04/2014 inferoapical reversible ischemia,small LVEF 48-50%, LHC 12/2014 L main-normal, LAD widely patent, Cx diffuse mild luminal irregularities with 80%focal stenosis distal, RCA dominant with minimal luminal irregularities. 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 - Pure hypercholesterolemia - Rheumatoid arthritis ([facility]) 2007 - Sleep apnea - Stented coronary artery 12/29/2016 PAST SURGICAL HISTORY Procedure Laterality Date - CC CORONARY STENT 11/20/2012 KIMMY LAD - CC CORONARY STENT 12/20/2014 KIMMY, Cfx - SECTION HX - COLONOSCOPY 06/10/2017 [facility], Nonspecific cecal ulcer - GASTRIC BYPASS HX 1986 - HERNIA REPAIR HX 1987; 1989 - PAST SURGICAL HISTORY OF Right 09/2015 right tibia fracture ORIF - PAST SURGICAL HISTORY OF Right 01/20/2016 Removal of hardware, right tibia - TOTAL KNEE REPLACEMENT Right 2003 [facility] Gen. - TOTAL KNEE REPLACEMENT Left 2004 [facility]. MEDICATIONS ergocalciferol, vitamin D2, (DRISDOL) 50,000 unit capsule Take 1 capsule by mouth once each week. levothyroxine (LEVOXYL) 100 mcg tablet Take 1 tablet by mouth once daily. Take on empty stomach. For Thyroid. gabapentin (NEURONTIN) 300 mg capsule Take 1 capsule by mouth twice daily. metoprolol tartrate, short acting, (LOPRESSOR) 50 mg tablet TAKE ONE TABLET BY MOUTH TWICE DAILY furosemide (LASIX) 40 mg tablet Take 1 tablet by mouth twice daily. COMPOUNDED PRESCRIPTION Calcium Alginate 4x4 Dressing, change daily Dx: Blister left leg with infection S80.822A, L08.9; Lymphedema I89.0. Wound dimensions: 4 x 3 cm acetaminophen (TYLENOL) 500 mg tablet Take 1,000 mg by mouth every 8 hours as needed. aspirin, enteric coated (ASPIRIN, ENTERIC COATED) 81 mg EC tablet Take 81 mg by mouth once daily. warfarin (COUMADIN) 1 mg tablet Take 1 mg by mouth daily as directed. Take 1 tablet (1mg) by mouth once daily. Take with 1 x 3mg tablet to total 4mg by mouth once daily. warfarin (COUMADIN) 3 mg tablet Take 3 mg by mouth daily as directed. Take 1 tablet (3mg) by mouth once daily. Take with 1 x 1mg tablet to total 4mg by mouth once daily. lisinopril (ZESTRIL) 2.5 mg tablet Take 2.5 mg by mouth once daily. omeprazole (PRILOSEC) 20 mg capsule Take 20 mg by mouth once daily. spironolactone (ALDACTONE) 25 mg tablet Take 25 mg by mouth once daily. docusate sodium (COLACE) 100 mg capsule Take 100 mg by mouth once daily as needed. therapeutic multivitamin w/ iron (THERAGRAN-M) 9 mg iron-400 mcg tablet Take 1 tablet by mouth once daily. ALLERGIES No Known Allergies FAMILY HISTORY: Patient's father in his 70s with a history of arthritis. Her mother at the age of 90 with a history of arthritis. SOCIAL HISTORY Patient is a , lives alone, but has a son nearby. She has 6 children. Substance Use Topics - Smoking status: Passive Smoke Exposure - Never Smoker - Smokeless tobacco: Never Used Comment: smoked for 40 years - Alcohol use No REVIEW OF SYSTEM: PAIN ASSESSMENT: Negative for pain, history of chronic pain, or current treatment for a chronic pain condition. GENERAL: No weight loss, malaise or fevers HEENT: Negative for frequent or significant headaches, No changes in hearing or vision, no nose bleeds or other nasal problems NECK: Negative for lumps, goiter, pain and significant neck swelling RESPIRATORY: Negative for cough, hemoptysis, wheezing, positive for shortness of breath CARDIOVASCULAR: Negative for chest pain,palpitations; has chronic leg swelling GI: No nausea, vomiting, or diarrhea : No history of dysuria, frequency or incontinence MUSCULOSKELETAL: Negative for joint pain or swelling, back pain or muscle pain SKIN: As per HPI. Negative for any other lesions, rash, and itching PSYCH: Negative for sleep disturbance, mood disorder and recent psychosocial stressors HEMATOLOGY/LYMPHOLOGY: Negative for prolonged bleeding, bruising easily or swollen nodes ENDOCRINE: Negative for cold or heat intolerance, polyuria, polydipsia and goiter NEURO: No history of headaches, syncope, paralysis, seizures or tremors 11/04/17 1415 BP: 149/83 Pulse: 58 Resp: 20 Temp: 36.6 ?C (97.8 ?F) TempSrc: Oral SpO2: 95% Weight: 88.1 kg (194 lb 4.8 oz) PHYSICAL EXAMINATION: HEENT: PERRLA , sclera non-icteric, EOM intact, mucous membrane moist, pink and w/o lesions Comments: Neck: Supple, no bruit, no masses, trachea midline Comments: Chest: Lungs clear to auscultation, no accessory muscle use for respiration Comments: Heart: Regular rate/rhythm, normal S1,S2, no murmur, rubs or gallops Comments: Abdomen: Soft, non-tender, non-distended, + bowel sounds, no bruit, no organomegaly Comments: Extremity: Dorsalis pedis : Present (Y) Absent Diminished Doppler Posterior Tibialis: Present (Y) Absent Diminished Doppler Capillary Refill: ANDlt; 3 sec. (Y) ANDgt; 3 sec. 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 Based upon the findings of this resting non-invasive lower extremity arterial study, arterial perfusion to ankle level appears to be relatively normal bilaterally. Triphasic and biphasic waveforms were noted at ankle level bilaterally. Resting ankle- brachial indices were bilaterally normal. 08/01/17 X-Ray 3-View Right Ankle Impression: There is prior open reduction internal fixation of the fibula which appears to be relatively intact allowing for advanced bony osteopenia. There is an irregular appearance of the lateral side distal tibia which is compatible with a prior fracture for which a new fracture on the lateral side is not excluded. The fracture could be potentially be associated with new trauma or potentially infection. Recommend consideration for follow- up study such as MRI or potentially three-phase bone scan. Flattened appearance of the arch of the foot with degenerative change of the tarsotarsal joints. Diffuse soft tissue swelling. Electronically Signed: Kelly Camarena MD at 20:15 EDT Tel , Service support , ? 10/14/17 Hemoglobin A1C = 5.8 ?? 10/14/17 WBC 8.4, Hgb 12.2, Hct 38.5, PLT 211, Glu 91, BUN 24, Cr 0.88, Na 136, K 4.7, Cl 100, Albumin 3.6, Total protein 9.1 ? 10/14/17 XR 2 View Tib/Fib (Left) Findings: Left tibia-fibula: Tibial component of the joint prosthesis noted without associated abnormal lucency. No acute fracture or bony destruction. Right tibia and fibula: Plate and screw fixation remote distal fibular fracture. There is also remote tibial fracture with residual posterior angulation. Ghost tracks from previous tibial hardware. Tibial component of the joint prosthesis noted without associated abnormal lucency. No acute fracture or bony destruction. ? Stereotype Finisher: DWIGHT ? Transcribe Date/Time: Oct 14 2017 ?4:02P Dictated by : ZURDO SANTOS MD ? 10/14/17 XR 2 View Tib/Fib (Right) Findings: Left tibia-fibula: Tibial component of the joint prosthesis noted without associated abnormal lucency. No acute fracture or bony destruction. Right tibia and fibula: Plate and screw fixation remote distal fibular fracture. There is also remote tibial fracture with residual posterior angulation. Ghost tracks from previous tibial hardware. Tibial component of the joint prosthesis noted without associated abnormal lucency. No acute fracture or bony destruction. ? Stereotype Finisher: DWIGHT ? Transcribe Date/Time: Oct 14 2017 ?4:02P Dictated by : ZURDO SANTOS MD ? 10/14/17 XR 2 View Tib/Fib (Left) Findings: Left tibia-fibula: Tibial component of the joint prosthesis noted without associated abnormal lucency. No acute fracture or bony destruction. Right tibia and fibula: Plate and screw fixation remote distal fibular fracture. There is also remote tibial fracture with residual posterior angulation. Ghost tracks from previous tibial hardware. Tibial component of the joint prosthesis noted without associated abnormal lucency. No acute fracture or bony destruction. WOUND ASSESSMENT: Wound Number: 1 First Assessed Date: 10/14/17 Pre-existing: YES Location: Leg Orientation: Right, Lateral and Distal Wound Etiology: Venous Depth of Tissue Injury (Non-pressure): Full Thickness Diabetic Wounds:N/A Pressure Injury: N/A Pre-Measurements Initial (First Visit): 3.5 cm length x 4.0 cm width x 0.5 cm depth Post Measurement (Current): 3.0 cm length x 3.2 cm width x 0.4 cm depth % Healing Rate/#Weeks: 45.2 % -- Week 3 Wound Bed (Post-debridement): 100% red % of Healthy tissue: Undermining: No Tunneling: No Tendon/bone exposed: NO Wound Edge/Margins: Irregular wound edges and Edge attached to base Periwound Tissue: Mild erythema, Wet (macerated), and Edema Exudate Amount:Moderate Consistency:Serous Odor:Minimal Infection/Critical Colonization Localized s/s: Non-healing and Increased exudate Systemic s/s: None Local/systemic Rx: None Wound Healing Status: Chronic Clinically presenting as: Stalled wound healing Current topical treatment: Iodoflex Wound Number: 2 First Assessed Date: 10/14/17 Pre-existing: YES Location: Leg Orientation: Right, Medial and Distal Wound Etiology: Surgical Depth of Tissue Injury (Non-pressure): Partial Thickness Diabetic Wounds:N/A Pressure Injury: N/A Pre-Measurements Initial (First Visit): 0.5 cm length x 0.4 cm width x 0.1 cm depth Post Measurement (Current): Epithelialized % Healing Rate/#Weeks: Week 1 -- Healed Wound Bed (Post-debridement): % of Healthy tissue: Undermining: No Tunneling: No Tendon/bone exposed: NO Wound Edge/Margins: Normal, intact, Irregular wound edges and Edge attached to base Periwound Tissue: Normal, intact,uninvolved tissue and Dry,flaky Exudate Amount: None Consistency: None Odor:None Infection/Critical Colonization Localized s/s: None and Edema Systemic s/s: None Local/systemic Rx: None Wound Healing Status: Chronic Clinically presenting as: Healed Current topical treatment: Iodoflex Wound Number: 3 First Assessed Date: 10/14/17 Pre-existing: YES Location: Leg (calf) Orientation: Left and Posterior Wound Etiology: Venous Depth of Tissue Injury (Non-pressure): Full Thickness Diabetic Wounds:N/A Pressure Injury: N/A Pre-Measurements Initial (First Visit): 1.3 cm length x 1.2 cm width x 0.1 cm depth Post Measurement (Current): 1.1 cm length x 0.6 cm width x 0.1 cm depth % Healing Rate/#Weeks: 57.7 % -- Week 3 Wound Bed (Post-debridement): 100% red % of Healthy tissue: Undermining: No Tunneling: No Tendon/bone exposed: NO Wound Edge/Margins: Well-defined wound edges and Edge attached to base Periwound Tissue: Mild circumferential erythema, No fluctuance, induration or advancing soft tissue necrosis or ischemia Exudate Amount:Scant/Minimal Consistency:Serous Odor:None Infection/Critical Colonization Localized s/s: Non-healing and Edema Systemic s/s: None Local/systemic Rx: None Wound Healing Status: Chronic Clinically presenting as: Stalled wound healing Current topical treatment: Dry gauze pad IMPRESSION: 1. Non-healing right and left lower extremity wounds ( #1 and #3) in the setting of chronic venous insufficiency with secondary lymphedema. 2. Recurrent right medial leg wound s/p STSG in the setting of chronic edema. 3. Significant lower extremity edema secondary to underlying chronic venous insufficiency with secondary lymphedema. 4. Multiple risk factors or co-morbidities that may contribute to wound healing difficulties include hypothyroid disease, chronic atrial fibrillation on anticoagulation, coronary artery disease, COPD, dyslipidemia, hypertension, muscle weakness, osteoarthritis, GERD, depression and obesity. 5. Wound cultures positive for Enterobacter cloacae and Staph aureus most likely increased colonization. 6. Very good glucose control based on recent HgbA1c. 7. Zinc insufficiency ( precursor for collagen synthesis. TREATMENT PLAN: Debridement Type: Autolytic Enzymatic Mechanical Surgical Sharp (Y) Other: ?? Sharp debridement is performed to ANDquot;freshen upANDquot; the wound and stimulate the healing cascade. It allows the wound to progress from the inflammatory to the proliferative phase of wound healing. Wound Dressing: See Nursing Notes for details. . Topical Rx: Wound each flushed with 10 cc of saline solution. Vitamin AANDamp;D ointment liberally applied to both lower legs. Calcium alginate was applied to both wounds. Sites were covered with abd pads and a profore lite compression wrap. We will obtain prior authorization for bioengineered skin substitute (Bennet). Profore Multiple layer Application: A 3- layer system applied to the bilateral lower extremities. A layer of cast padding, crepe bandage, light compression bandage, followed with a layer of coban and stockinet from behind the toes to 1ANDquot; below the knee. Toes were warm and pink before and post application. + dorsal pedis pulse on palpation. It was demonstrated to the patient how to check for adequate circulation. If the patient exhibits a change in color to the extremity: change in temperature, increased pain, or the compression wrap becomes wet or to tight, the patient has been instructed to remove the wrap or go to the Emergency Department. Patient voices understanding with intent to comply. Continue with leg elevation whenever possible to promote venous return to the heart. Systemic Rx: Doxycycline 100 mg by mouth twice daily x 14 days and zinc 220 mg by mouth daily x 14 days completed.. Nutritional Support: MVI, Zinc Supplement and Protein Supplement Patient is instructed to continue a healthy, well-balanced diet for nutritional support for optimal healing. Protein is the most important nutrient for wound healing. Eating adequate amounts of protein allows the body to create new cells and chemicals to heal the wound, and increases the body?s ability to fight infection. Eating high protein foods daily is recommended such as: lean meats, fish, poultry, cheese, milk, yogurt, eggs and legumes. Vitamins and minerals provide a full range of nutrients for wound healing. It can help ANDquot;jump startANDquot; the body's production of cells and chemicals needed for healing. Vitamins and minerals can be obtained through healthy foods in your diet and by taking a multiple vitamin supplement. Vitamin C is essential for collagen synthesis. Collagen and fibroblasts compose the basis for the structure of a new wound bed. Also, a deficiency of Vitamin C prolongs the healing time and contributes to reduced resistance to infection. Laboratory: We will obtain wound cultures to determine bacterial load. Results positive for few Enterobacter cloacae complex and many Staph aureus. No anaerobic organisms or fungal elements. Wound cultures are collected to assess level of bacterial bio-burden. Excessive bio-burden can result in inflammatory and proliferative phase stagnation as well as compromise of normal wound healing physiology. Bacterial proliferation, biofilm production, critical colonization and the development of resistant organism can lead to wound infection, wound deterioration and devastating tissue loss. Knowing the organism that populated the wound can help direct therapy, particularly anti-microbial dressing choices. Vascular Evaluation: PVRs for both lower extremities to evaluate for arterial insufficiency to see if poor circulation is an issue regarding her slow healing. Awaiting results. Follow-up is scheduled in 1 week, sooner with any concerns or worsening symptoms. Luis Simons CNP Charge Capture: [id number] Tiffanie Humphrey, RN, RN 11/04/2017 3:19 PM Addendum Nursing Note See provider note for wound description and measurements Dressing removed with dakins Saline 0.9% solution applied to all wounds In the presence and direction of the provider wound care as written below: Photo taken Wound each flushed with 10 cc of saline solution. Vitamin AANDamp;D ointment liberally applied to both lower legs. Calcium alginate ag was applied to both wounds. Sites were covered with abd pads and a profore lite compression wrap. Profore Multiple layer Application: A 3- layer system applied to the bilateral lower extremities. A layer of cast padding, crepe bandage, light compression bandage, followed with a layer of coban and stockinet from behind the toes to 1ANDquot; below the knee. Toes were warm and pink before and post application. + dorsal pedis pulse on palpation. It was demonstrated to the patient how to check for adequate circulation. If the patient exhibits a change in color to the extremity: change in temperature, increased pain, or the compression wrap becomes wet or to tight, the patient has been instructed to remove the wrap or go to the Emergency Department. Patient voices understanding with intent to comply. #1 Right lateral distal leg: Lido gel applied prior to the SQ debridement per provider. L: 3.0 cm x W: 3.2 cm x D: 0.4 cm #2 Right medial distal leg: Broken ankle 1 yr ago per patient. Remains closed #3 left distal calf: Selective debridement done per provider. Wound was Caused from too tight of a compression wrap. L: 1.1 cm x W: 0.6 cm x D: 0.1 cm Measurements: Right Calf: 46.5 cm Right Ankle: 29 cm Left Calf: 41.5 cm Left Ankle: 21.5 cm PLAN: Home care to continue 3 x weekly Insurance authorization will be submitted for Bennet Rx: Jose Manuel to bring with her to the wound center Next visit will discuss compression pumps and circaid wraps Waiting on results of vascular testing Copy of wound care instructions faxed to [facility] as patient's request. [phone] EDUCATION: The patient/family was instructed how to wash the wound(s) with dial soap, rinsing with water, ANDamp; patting dry. Visual demonstration on how to apply the dressing. Signs ANDamp; symptoms of infection were reviewed: Increased redness, swelling, pain, green, yellow drainage, fever or chills all would need to be evaluated by a Physician. Patient received typed homegoing wound care instructions and has expressed intent to comply. Tiffanie Humphrey, RN, RN 11/04/2017 3:00 PM Addendum WOUND CARE INSTRUCTIONS Wound location: Right medial distal leg/Right lateral distal leg/Left calf 1. Wash your hands with soap and water before and after wound care. 2. Gather all supplies needed. 3. Wash wound with Dial soap and water. Pat dry. Moisturize with vitamin AANDamp;D 4. Apply calcium alginate ag to the wound base. 5. Cover with 4x4's, abd pad 6. Secure dressing with Profore 3-layer compression wrap 7. Home Care to change your dressing 3 x weekly FOR COMPRESSION WRAPS/TUBIGRIP ? Cast cover may be used to allow you to shower ? Remove compression wraps if they become uncomfortable or cause change in color or sensation to the extremity. Rewrap as instructed. To give your wound the best chance to heal: - Eat three balanced meals daily focusing on the protein - Control swelling by elevating the extremity above your heart - exercise the extremity - Complete your wound care instructions - Vitamin C 500 mg twice daily - Multiple Vitamin Daily - Drink a protein shake daily - continue home care Report any of the following changes to the Wound Center at [phone] or go to the Emergency Department: ? Fever or chills ? Increased drainage ? Green or yellow drainage ? Foul odor ? Increased pain ? Hardness around the wound ? Redness, warmth or swelling of the surrounding tissue ? Color change to the wound Return to the Wound Center in 1 week to see Marlen Richard (Please bring with you to next wound center visit) Luis Simons CNP/samm Simons CNP, LOI 11/14/2017 6:02 AM Signed A procedural pause was conducted immediately prior to starting the wound debridement to verify correct patient identity using two patient identifiers: the correct site and correct procedure. Permission from the patient to perform the procedure was obtained. After providing local analgesia with Lidocaine 2% gel, a full-thickness excisional debridement of the right and left leg wounds was performed and carried through the skin and subcutaneous tissue, using a sterile #15 blade, iris scissors, and forceps to remove the non-viable or devitalized tissue. The debridement extended into the viable wound margin/s to promote a healthy, active wound edge to support healing. The patient tolerated the procedure well without complications. Hemostasis was achieved with direct pressure. The wound/s was/were then copiously irrigated with sterile normal saline and dressings were applied. Referring Provider: MANI NEWMAN [[id number]] Allergies As of Date: 11/04/2017 (No Known Allergies) Date Reviewed: 11/04/2017 Reviewed by: Peter Martinez) TORY Jason - Fully Assessed Reason for Visit: Wound Check [133] Cmt: Right ankle, left calf Primary Visit Diagnosis:Stasis dermatitis of left lower extremity with venous ulcer due to chronic peripheral venous hypertension (HCC) [I87.332] Other Visit Diagnosis:Stasis dermatitis of right lower extremity with venous ulcer due to chronic peripheral venous hypertension (HCC) [I87.331] Order(s):silver sulfADIAZINE (SILVADENE) 1 % creamApply to leg wounds as directed.Disp: 50 gRfl: 1 Prescriptions as of 11/04/2017 Sig: ZINC SULFATE 220 MG TABLET Take 1 tablet by mouth once d* DOXYCYCLINE MONOHYDRATE 100 M* Take 1 capsule by mouth twice* ACETAMINOPHEN 500 MG TABLET Take 1,000 mg by mouth every * ASPIRIN 81 MG TABLET,DELAYED * Take 81 mg by mouth once oliver* WARFARIN 1 MG TABLET Take 1 mg by mouth daily as d* WARFARIN 3 MG TABLET Take 3 mg by mouth daily as d* LISINOPRIL 2.5 MG TABLET Take 2.5 mg by mouth once yuly* OMEPRAZOLE 20 MG CAPSULE,LUIS MIGUEL* Take 20 mg by mouth once oliver* SPIRONOLACTONE 25 MG TABLET Take 25 mg by mouth once oliver* DOCUSATE SODIUM 100 MG CAPSULE Take 100 mg by mouth once yuly* MULTIVITAMIN-IRON 9 MG-FOLIC * Take 1 tablet by mouth once d* ERGOCALCIFEROL (VITAMIN D2) 5* Take 1 capsule by mouth once * LEVOTHYROXINE 100 MCG TABLET Take 1 tablet by mouth once d* GABAPENTIN 300 MG CAPSULE Take 1 capsule by mouth twice* METOPROLOL TARTRATE 50 MG TAB* TAKE ONE TABLET BY MOUTH TWIC* FUROSEMIDE 40 MG TABLET Take 1 tablet by mouth twice * COMPOUNDED PRESCRIPTION Calcium Alginate 4x4 Dressing* SILVER SULFADIAZINE 1 % TOPIC* Apply to leg wounds as direct* Problem List As Of Date 11/04/2017 Noted Resolved Gastroesophageal reflux disease without esophag*INVALID FOR* Chronic atrial fibrillation (HCC) [I48.2] INVALID FOR* Priority: B Pure hypercholesterolemia [E78.00] Hypertension [I10] Priority: D More... Acquired hypothyroidism [E03.9] CAD (coronary artery disease) [I25.10] More... Depressive disorder [F32.9] INVALID FOR*07/18/2017 Primary osteoarthritis involving multiple joint*INVALID FOR* Lymphedema of both lower extremities [I89.0] INVALID FOR* Mouth dryness [R68.2] INVALID FOR* Muscular weakness [M62.81] INVALID FOR* Dorsalgia [M54.9] INVALID FOR* Stented coronary artery [Z95.5] INVALID FOR* Priority: A Gastric bypass status for obesity [Z98.84] INVALID FOR* Priority: C Bilateral leg ulcer (HCC) [L97.919, L97.929] INVALID FOR* Priority: E More... Polyneuropathy (HCC) [G62.9] INVALID FOR* Cecal ulcer [K63.3] INVALID FOR* Acute respiratory failure with hypoxia (HCC) [J*INVALID FOR*10/10/2017 Priority: Severe Anticoagulation goal of INR 2 to 3 [Z51.81, Z79*INVALID FOR* Priority: Mild More... ANASARCA/HYPOXIA 09/30/17 ADMISSION SUMMARY [Z9*INVALID FOR* Priority: Very Severe More... Skin bulla [R23.8] INVALID FOR* Priority: Mild More... Respiratory failure with hypoxia (HCC) [J96.91] INVALID FOR* Priority: Severe Heart failure with preserved ejection fraction *INVALID FOR* Priority: A More... Physical debility [R53.81] INVALID FOR* Priority: Moderate More... Requires continuous at home supplemental oxygen*INVALID FOR* More... Other instructions from your clinician: WOUND CARE INSTRUCTIONS Wound location: Right medial distal leg/Right lateral distal leg/Left calf 1. Wash your hands with soap and water before and after wound care. 2. Gather all supplies needed. 3. Wash wound with Dial soap and water. Pat dry. Moisturize with vitamin AANDD 4. Apply calcium alginate ag to the wound base. 5. Cover with 4x4's, abd pad 6. Secure dressing with Profore 3-layer compression wrap 7. Home Care to change your dressing 3 x weekly FOR COMPRESSION WRAPS/TUBIGRIP ? Cast cover may be used to allow you to shower ? Remove compression wraps if they become uncomfortable or cause change in color or sensation to the extremity. Rewrap as instructed. To give your wound the best chance to heal: - Eat three balanced meals daily focusing on the protein - Control swelling by elevating the extremity above your heart - exercise the extremity - Complete your wound care instructions - Vitamin C 500 mg twice daily - Multiple Vitamin Daily - Drink a protein shake daily - continue home care Report any of the following changes to the Wound Center at [phone] or go to the Emergency Department: ? Fever or chills ? Increased drainage ? Green or yellow drainage ? Foul odor ? Increased pain ? Hardness around the wound ? Redness, warmth or swelling of the surrounding tissue ? Color change to the wound Return to the Wound Center in 1 week to see Marlen Rx: Jose Manuel (Please bring with you to next wound center visit) Luis Simons GROUND SYSTEMS ENGINEER/mjl Visit Notes: >> Tiffanie (Rn) ELENA Humphrey TueNov 04, 2017 2:47 PM Status: Addendum Nursing Note See provider note for wound description and measurements Dressing removed with dakins Saline 0.9% solution applied to all wounds In the presence and direction of the provider wound care as written below: Photo taken Wound each flushed with 10 cc of saline solution. Vitamin AANDD ointment liberally applied to both lower legs. Calcium alginate ag was applied to both wounds. Sites were covered with abd pads and a profore lite compression wrap. Profore Multiple layer Application: A 3- layer system applied to the bilateral lower extremities. A layer of cast padding, crepe bandage, light compression bandage, followed with a layer of coban and stockinet from behind the toes to 1 below the knee. Toes were warm and pink before and post application. + dorsal pedis pulse on palpation. It was demonstrated to the patient how to check for adequate circulation. If the patient exhibits a change in color to the extremity: change in temperature, increased pain, or the compression wrap becomes wet or to tight, the patient has been instructed to remove the wrap or go to the Emergency Department. Patient voices understanding with intent to comply. #1 Right lateral distal leg: Lido gel applied prior to the SQ debridement per provider. L: 3.0 cm x W: 3.2 cm x D: 0.4 cm #2 Right medial distal leg: Broken ankle 1 yr ago per patient. Remains closed #3 left distal calf: Selective debridement done per provider. Wound was Caused from too tight of a compression wrap. L: 1.1 cm x W: 0.6 cm x D: 0.1 cm Measurements: Right Calf: 46.5 cm Right Ankle: 29 cm Left Calf: 41.5 cm Left Ankle: 21.5 cm PLAN: Home care to continue 3 x weekly Insurance authorization will be submitted for [facility] Rx: Jose Manuel to bring with her to the wound center Next visit will discuss compression pumps and circaid wraps Waiting on results of vascular testing Copy of wound care instructions faxed to [facility] as patient's request. [phone] EDUCATION: The patient/family was instructed how to wash the wound(s) with dial soap, rinsing with water, AND patting dry. Visual demonstration on how to apply the dressing. Signs AND symptoms of infection were reviewed: Increased redness, swelling, pain, green, yellow drainage, fever or chills all would need to be evaluated by a Physician. Patient received typed homegoing wound care instructions and has expressed intent to comply. Prescriptions ordered this encounter Disp Refills Start End SILVER SULFADIAZINE 1 % TOPICAL CREAM 50 g 1 11/04/2017 Sig: Apply to leg wounds as directed. Encounter Status:Closed by LUIS SIMONS on 11/14/17 PROGRESS Observed: 11/04/2017 Status: COMPLETED Source: [facility] 2:15 PM CLINIC OTHER CAMPUS REPOSITORY HNO ID: [id number] Author: Luis Lyles (Loi) LOI Simons Service: (none) Author Type: Nurse Practitioner Type: Progress Notes Filed: 11/14/2017 4:41 PM Note Text: DATE OF CONSULTATION: 10/28/2017 REQUESTING PHYSICIAN: Mani Newman MD CONSULTING PROVIDER: Luis Simons CNP REASON FOR CONSULTATION: Non-healing lower extremity wound. HISTORY OF PRESENT ILLNESS: Rosa Beltran is a 81 year old female who presents to the [facility] for further evaluation and management of a non-healing leg wound. She has a past medical history significant for atrial fibrillation on Coumadin, coronary artery disease,?COPD, hypertension, dyslipidemia and CHF.?Patient has felt mildly short of breath over the past month. ?Increase with exertion and lying flat. She is on 40 mg of Lasix twice a day. She still is urinating appropriately. She has not had any chest pain or palpitations. ?Fever, chills, or sweats. ?No productive cough. ?No wheezing. Upon taking patients vitals, her SPO2 level was from 76% - 85%. Patient stated she had shortness of breath. She was unable to finish her sentences without catching her breath. The tips of her fingers were cyanotic. Patient was sent to the ER for further evaluation. Tiffanie BARBOSA wheeled patient to the ER. PAST MEDICAL HISTORY Diagnosis Date - Acquired hypothyroidism - Acute respiratory failure with hypoxia (HCC) 09/30/2017 - Atrial fibrillation (HCC) - CAD (coronary artery disease) Dr. Brenda Awan Hts, Promus element KIMMY LAD 11/20/2012, Stress test 04/2014 inferoapical reversible ischemia,small LVEF 48- 50%, LHC 12/2014 L main-normal, LAD widely patent, Cx diffuse mild luminal irregularities with 80%focal stenosis distal, RCA dominant with minimal luminal irregularities. PTCA and Promus premier KIMMY distal Cx 12/20/2014, RX aspirin and plavix - Cecal ulcer 06/10/2017 - Chronic atrial fibrillation (HCC) 10/08/2016 - COPD (chronic obstructive pulmonary disease) (HCC) - Depressive disorder 12/29/2016 - Disruption of surgical wound 09/2015 Right tibia - Dorsalgia 12/29/2016 - Dyslipidemia - Gastric bypass status for obesity 12/29/2016 - Gastroesophageal reflux disease without esophagitis 10/08/2016 - HTN (hypertension) - Muscular weakness 12/29/2016 - Primary osteoarthritis involving multiple joints 12/29/2016 - Pure hypercholesterolemia - Rheumatoid arthritis (HCC) 2007 - Sleep apnea - Stented coronary artery 12/29/2016 PAST SURGICAL HISTORY Procedure Laterality Date - CC CORONARY STENT 11/20/2012 KIMMY LAD - CC CORONARY STENT 12/20/2014 KIMMY, Cfx - SECTION HX - COLONOSCOPY 06/10/2017 [facility], Nonspecific cecal ulcer - GASTRIC BYPASS HX 1986 - HERNIA REPAIR HX 1987; 1989 - PAST SURGICAL HISTORY OF Right 09/2015 right tibia fracture ORIF - PAST SURGICAL HISTORY OF Right 01/20/2016 Removal of hardware, right tibia - TOTAL KNEE REPLACEMENT Right 2003 [facility] Gen. - TOTAL KNEE REPLACEMENT Left 2004 [facility] Gen. MEDICATIONS ergocalciferol, vitamin D2, (DRISDOL) 50,000 unit capsule Take 1 capsule by mouth once each week. levothyroxine (LEVOXYL) 100 mcg tablet Take 1 tablet by mouth once daily. Take on empty stomach. For Thyroid. gabapentin (NEURONTIN) 300 mg capsule Take 1 capsule by mouth twice daily. metoprolol tartrate, short acting, (LOPRESSOR) 50 mg tablet TAKE ONE TABLET BY MOUTH TWICE DAILY furosemide (LASIX) 40 mg tablet Take 1 tablet by mouth twice daily. COMPOUNDED PRESCRIPTION Calcium Alginate 4x4 Dressing, change daily Dx: Blister left leg with infection S80.822A, L08.9; Lymphedema I89.0. Wound dimensions: 4 x 3 cm acetaminophen (TYLENOL) 500 mg tablet Take 1,000 mg by mouth every 8 hours as needed. aspirin, enteric coated (ASPIRIN, ENTERIC COATED) 81 mg EC tablet Take 81 mg by mouth once daily. warfarin (COUMADIN) 1 mg tablet Take 1 mg by mouth daily as directed. Take 1 tablet (1mg) by mouth once daily. Take with 1 x 3mg tablet to total 4mg by mouth once daily. warfarin (COUMADIN) 3 mg tablet Take 3 mg by mouth daily as directed. Take 1 tablet (3mg) by mouth once daily. Take with 1 x 1mg tablet to total 4mg by mouth once daily. lisinopril (ZESTRIL) 2.5 mg tablet Take 2.5 mg by mouth once daily. omeprazole (PRILOSEC) 20 mg capsule Take 20 mg by mouth once daily. spironolactone (ALDACTONE) 25 mg tablet Take 25 mg by mouth once daily. docusate sodium (COLACE) 100 mg capsule Take 100 mg by mouth once daily as needed. therapeutic multivitamin w/ iron (THERAGRAN-M) 9 mg iron-400 mcg tablet Take 1 tablet by mouth once daily. ALLERGIES No Known Allergies ezekiel history on file. FAMILY HISTORY: Significant for diabetes mellitus (mother) SOCIALHISTORY Substance Use Topics - Smoking status: Passive Smoke Exposure - Never Smoker - Smokeless tobacco: Never Used Comment: smoked for 40 years - Alcohol use No REVIEW OF SYSTEM: PAIN ASSESSMENT: Negative for pain, history of chronic pain, or current treatment for a chronic pain condition. GENERAL: No weight loss, malaise or fevers HEENT: Negative for frequent or significant headaches, No changes in hearing or vision, no nose bleeds or other nasal problems NECK: Negative for lumps, goiter, pain and significant neck swelling RESPIRATORY: Negative for cough, hemoptysis, wheezing, positive for shortness of breath CARDIOVASCULAR: Negative for chest pain,palpitations; has chronic leg swelling GI: No nausea, vomiting, or diarrhea : No history of dysuria, frequency or incontinence MUSCULOSKELETAL: Negative for joint pain or swelling, back pain or muscle pain SKIN: As per HPI. Negative for any other lesions, rash, and itching PSYCH: Negative for sleep disturbance, mood disorder and recent psychosocial stressors HEMATOLOGY/LYMPHOLOGY: Negative for prolonged bleeding, bruising easily or swollen nodes ENDOCRINE: Negative for cold or heat intolerance, polyuria, polydipsia and goiter NEURO: No history of headaches, syncope, paralysis, seizures or tremors 11/04/17 1438 BP: 149/83 Pulse: (!) 58 Resp: 20 Temp: 36.6 ?C (97.9 ?F) TempSrc: Oral SpO2: 95% PHYSICAL EXAMINATION: HEENT: PERRLA , sclera non-icteric, EOM intact, mucous membrane moist, pink and w/o lesions Comments: Neck: Supple, no bruit, no masses, trachea midline Comments: Chest: Lungs clear to auscultation, no accessory muscle use for respiration Comments: Heart: Regular rate/rhythm, normal S1,S2, no murmur, rubs or gallops Comments: Abdomen: Soft, non-tender, non-distended, + bowel sounds, no bruit, no organomegaly Comments: Extremity: Dorsalis pedis : Present (Y) Absent Diminished Doppler Posterior Tibialis: Present (Y) Absent Diminished Doppler Capillary Refill: < 3 sec. (Y) > 3 sec. 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 WBC , Hgb , Hct , PLT , Glu , BUN , Cr , Na , K , Cl , Albumin , Total protein WOUND ASSESSMENT: Deferred IMPRESSION: 1. Chronic venous stasis ulcer bilateral lower extremities PLAN: Wound each flushed with 10 cc of saline solution. Vitamin AANDD ointment liberally applied to both lower legs. Calcium alginate was applied to both wounds. Sites were covered with abd pads and a profore lite compression wrap. Profore Multiple layer Application: A 3- layer system applied to the bilateral lower extremities. A layer of cast padding, crepe bandage, light compression bandage, followed with a layer of coban and stockinet from behind the toes to 1 below the knee. Toes were warm and pink before and post application. + dorsal pedis pulse on palpation. It was demonstrated to the patient how to check for adequate circulation. If the patient exhibits a change in color to the extremity: change in temperature, increased pain, or the compression wrap becomes wet or to tight, the patient has been instructed to remove the wrap or go to the Emergency Department. Patient voices understanding with intent to comply. #1 Right lateral distal leg: caused from too tight leg wraps. Foul odor noted on exam. Sq debridement per provider. L: 3.3 cm x W: 4.0 cm x D: 0.6 cm #2 Right medial distal leg: Broken ankle 1 yr ago per patient. Healed today #3 left distal calf: Caused from too tight of a compression wrap. L: 1.5 cm x W: 1.3 cm x D: 0.15 cm, not debrided Measurements: Right Calf: 39.5 cm Right Ankle: 25.5 cm Left Calf: 36.0 cm Left Ankle: 26 cm PLAN: Home care to visit 3 x weekly PVR's and Venous doppler to be scheduled JUN Rx: Zinc and Doxycycline Copy of wound care instructions faxed to [facility] as patient's request. [phone] Luis Simons CNP CHARGE CAPTURE: [id number] . PROGRESS Observed: 11/04/2017 Status: COMPLETED Source: [facility] 2:15 PM CLINIC OTHER CAMPUS REPOSITORY HNO ID: [id number] Author: Luis Lyles (Loi) LOI Simons Service: (none) Author Type: Nurse Practitioner Type: Progress Notes Filed: 11/29/2017 1:17 PM Note Text: DATE OF VISIT: 11/04/2017 REASON FOR VISIT: Non-healing lower extremity wound. HISTORY OF PRESENT ILLNESS: Rosa Beltran is a 81 year old female who presents to the [facility] for further evaluation and management of a non-healing leg wound. She has a past medical history significant for atrial fibrillation on Coumadin, coronary artery disease,?COPD, hypertension, dyslipidemia and CHF.?Patient has felt mildly short of breath over the past month. ?Increase with exertion and lying flat. She is on 40 mg of Lasix twice a day. She still is urinating appropriately. She has not had any chest pain or palpitations. ?Fever, chills, or sweats. ?No productive cough. ?No wheezing. Upon taking patients vitals, her SPO2 level was from 76% - 85%. Patient stated she had shortness of breath. She was unable to finish her sentences without catching her breath. The tips of her fingers were cyanotic. Patient was sent to the ER for further evaluation. Tiffanie BARBOSA wheeled patient to the ER. INTERVAL HISTORY: Patient was sent tot he ED during her previous visit due to low oxygenation. She is now on 2 L of oxygen at all times. She denies any breathing difficulty at this time. She is an 81 year old white female with a long-standing history of swelling in her lower extremities secondary to lymphedema. Approximately 2 years ago, she sustained a fracture to her right ankle, requiring surgical intervention. The operative site became infected, and required prolonged treatment and eventually a skin graft for complete wound closure. As a result, the patient's ambulatory capacity has been impaired. Furthermore, she is morbidly obese which limits her ambulation. The patient leads a relatively sedentary lifestyle and requires a walker for ambulation. She spends a great part of her day in a sitting position. She sleeps with the head of the bed elevated. Swelling in her lower extremities has been on-going for many years. The patient has undergone a battery of diagnostic tests. A non-invasive lower extremity arterial study in December 2016 reveals normal- ankle brachial indices, bilaterally. Venous doppler examination on 01/14 reveals incompetence of the great saphenous veins, bilaterally. There is also incompetence of the small saphenous veins, bilaterally and the right accessory saphenous vein. At present, she has three wounds, 2 on the right distal leg and the other is on the left posterior calf. The left leg wound has been present for over a year and was managed with silver alginate, NPWT, Santyl, serial sharp wound debridements, compression therapy using Surepress and compression pumps. Patient's wound cultures over the past several months have grown out Enterobacter cloacae, MRSA, coag-staph aureus, and in January grew out Pseudomonas, managed with oral antibiotics. IIn July of this year, she developed a new wound on the right lateral distal leg, then in July, she experience cellulitis of both legs requiring hospitalization. In the last year, she has been followed by Dr. Jaskaran Chance at the [facility] [place] [facility]. It was felt that her home support system was inadequate and that she may not have the resources in her home environment to appropriately care for her needs. In this regard, a geriatric social work professor consultation had been recommended on several occassions, but patient apparently insisted on remaining in her home environment despite that there was thought that is may be less than optimal. The patient is here at the [facility] for a second opinion regarding management of the abovementioned bilateral lower extremity wounds. She offers no other complaints. She denies any fevers, chills, wound-related pain or other related symptoms. 11/04/17 Patient presents for follow-up. Overall, her lower extremity wounds are progressing favorably. One of the three is now healed. The remaining two show evidence of wound contraction and granulation tissue formation. To date, wounds have been managed with sharp debridement, antibacterial dressing and oral antibiotics and nutritional support. She offers no new complaints. The edema in her lower extremities is well-controlled. She denies any fever, chills or other related symptoms. PAST MEDICAL HISTORY Diagnosis Date - Acquired hypothyroidism - Acute respiratory failure with hypoxia (HCC) 09/30/2017 - Atrial fibrillation ([facility]) - CAD (coronary artery disease) Dr. Brenda Awan Hts, Promus element KIMMY LAD 11/20/2012, Stress test 04/2014 inferoapical reversible ischemia,small LVEF 48- 50%, C 12/2014 L main-normal, LAD widely patent, Cx diffuse mild luminal irregularities with 80%focal stenosis distal, RCA dominant with minimal luminal irregularities. 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 - Pure hypercholesterolemia - Rheumatoid arthritis ([facility]) 2007 - Sleep apnea - Stented coronary artery 12/29/2016 PAST SURGICAL HISTORY Procedure Laterality Date - CC CORONARY STENT 11/20/2012 KIMMY LAD - CC CORONARY STENT 12/20/2014 KIMMY, Cfx - SECTION HX - COLONOSCOPY 06/10/2017 [facility], Nonspecific cecal ulcer - GASTRIC BYPASS HX 1986 - HERNIA REPAIR HX 1987; 1989 - PAST SURGICAL HISTORY OF Right 09/2015 right tibia fracture ORIF - PAST SURGICAL HISTORY OF Right 01/20/2016 Removal of hardware, right tibia - TOTAL KNEE REPLACEMENT Right 2003 [facility] Gen. - TOTAL KNEE REPLACEMENT Left 2004 [facility] Gen MEDICATIONS ergocalciferol, vitamin D2, (DRISDOL) 50,000 unit capsule Take 1 capsule by mouth once each week. levothyroxine (LEVOXYL) 100 mcg tablet Take 1 tablet by mouth once daily. Take on empty stomach. For Thyroid. gabapentin (NEURONTIN) 300 mg capsule Take 1 capsule by mouth twice daily. metoprolol tartrate, short acting, (LOPRESSOR) 50 mg tablet TAKE ONE TABLET BY MOUTH TWICE DAILY furosemide (LASIX) 40 mg tablet Take 1 tablet by mouth twice daily. COMPOUNDED PRESCRIPTION Calcium Alginate 4x4 Dressing, change daily Dx: Blister left leg with infection S80.822A, L08.9; Lymphedema I89.0. Wound dimensions: 4 x 3 cm acetaminophen (TYLENOL) 500 mg tablet Take 1,000 mg by mouth every 8 hours as needed. aspirin, enteric coated (ASPIRIN, ENTERIC COATED) 81 mg EC tablet Take 81 mg by mouth once daily. warfarin (COUMADIN) 1 mg tablet Take 1 mg by mouth daily as directed. Take 1 tablet (1mg) by mouth once daily. Take with 1 x 3mg tablet to total 4mg by mouth once daily. warfarin (COUMADIN) 3 mg tablet Take 3 mg by mouth daily as directed. Take 1 tablet (3mg) by mouth once daily. Take with 1 x 1mg tablet to total 4mg by mouth once daily. lisinopril (ZESTRIL) 2.5 mg tablet Take 2.5 mg by mouth once daily. omeprazole (PRILOSEC) 20 mg capsule Take 20 mg by mouth once daily. spironolactone (ALDACTONE) 25 mg tablet Take 25 mg by mouth once daily. docusate sodium (COLACE) 100 mg capsule Take 100 mg by mouth once daily as needed. therapeutic multivitamin w/ iron (THERAGRAN-M) 9 mg iron-400 mcg tablet Take 1 tablet by mouth once daily. ALLERGIES No Known Allergies FAMILY HISTORY: Patient's father in his 70s with a history of arthritis. Her mother at the age of 90 with a history of arthritis. SOCIAL HISTORY Patient is a , lives alone, but has a son nearby. She has 6 children. Substance Use Topics - Smoking status: Passive Smoke Exposure - Never Smoker - Smokeless tobacco: Never Used Comment: smoked for 40 years - Alcohol use No REVIEW OF SYSTEM: PAIN ASSESSMENT: Negative for pain, history of chronic pain, or current treatment for a chronic pain condition. GENERAL: No weight loss, malaise or fevers HEENT: Negative for frequent or significant headaches, No changes in hearing or vision, no nose bleeds or other nasal problems NECK: Negative for lumps, goiter, pain and significant neck swelling RESPIRATORY: Negative for cough, hemoptysis, wheezing, positive for shortness of breath CARDIOVASCULAR: Negative for chest pain,palpitations; has chronic leg swelling GI: No nausea, vomiting, or diarrhea : No history of dysuria, frequency or incontinence MUSCULOSKELETAL: Negative for joint pain or swelling, back pain or muscle pain SKIN: As per HPI. Negative for any other lesions, rash, and itching PSYCH: Negative for sleep disturbance, mood disorder and recent psychosocial stressors HEMATOLOGY/LYMPHOLOGY: Negative for prolonged bleeding, bruising easily or swollen nodes ENDOCRINE: Negative for cold or heat intolerance, polyuria, polydipsia and goiter NEURO: No history of headaches, syncope, paralysis, seizures or tremors 11/04/17 1415 BP: 149/83 Pulse: 58 Resp: 20 Temp: 36.6 ?C (97.8 ?F) TempSrc: Oral SpO2: 95% Weight: 88.1 kg (194 lb 4.8 oz) PHYSICAL EXAMINATION: HEENT: PERRLA , sclera non-icteric, EOM intact, mucous membrane moist, pink and w/o lesions Comments: Neck: Supple, no bruit, no masses, trachea midline Comments: Chest: Lungs clear to auscultation, no accessory muscle use for respiration Comments: Heart: Regular rate/rhythm, normal S1,S2, no murmur, rubs or gallops Comments: Abdomen: Soft, non-tender, non-distended, + bowel sounds, no bruit, no organomegaly Comments: Extremity: Dorsalis pedis : Present (Y) Absent Diminished Doppler Posterior Tibialis: Present (Y) Absent Diminished Doppler Capillary Refill: < 3 sec. (Y) > 3 sec. 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 Based upon the findings of this resting non-invasive lower extremity arterial study, arterial perfusion to ankle level appears to be relatively normal bilaterally. Triphasic and biphasic waveforms were noted at ankle level bilaterally. Resting ankle-brachial indices were bilaterally normal. 08/01/17 X-Ray 3-View Right Ankle Impression: There is prior open reduction internal fixation of the fibula which appears to be relatively intact allowing for advanced bony osteopenia. There is an irregular appearance of the lateral side distal tibia which is compatible with a prior fracture for which a new fracture on the lateral side is not excluded. The fracture could be potentially be associated with new trauma or potentially infection. Recommend consideration for follow-up study such as MRI or potentially three-phase bone scan. Flattened appearance of the arch of the foot with degenerative change of the tarsotarsal joints. Diffuse soft tissue swelling. Electronically Signed: Kelly Camarena MD at 20:15 EDT Tel , Service support , ? 10/14/17 Hemoglobin A1C = 5.8 ?? 10/14/17 WBC 8.4, Hgb 12.2, Hct 38.5, PLT 211, Glu 91, BUN 24, Cr 0.88, Na 136, K 4.7, Cl 100, Albumin 3.6, Total protein 9.1 ? 10/14/17 XR 2 View Tib/Fib (Left) Findings: Left tibia-fibula: Tibial component of the joint prosthesis noted without associated abnormal lucency. No acute fracture or bony destruction. Right tibia and fibula: Plate and screw fixation remote distal fibular fracture. There is also remote tibial fracture with residual posterior angulation. Ghost tracks from previous tibial hardware. Tibial component of the joint prosthesis noted without associated abnormal lucency. No acute fracture or bony destruction. ? Stereotype Finisher: DWIGHT ? Transcribe Date/Time: Oct 14 2017 ?4:02P Dictated by : ZURDO SANTOS MD ? 10/14/17 XR 2 View Tib/Fib (Right) Findings: Left tibia-fibula: Tibial component of the joint prosthesis noted without associated abnormal lucency. No acute fracture or bony destruction. Right tibia and fibula: Plate and screw fixation remote distal fibular fracture. There is also remote tibial fracture with residual posterior angulation. Ghost tracks from previous tibial hardware. Tibial component of the joint prosthesis noted without associated abnormal lucency. No acute fracture or bony destruction. ? Stereotype Finisher: PSCVerónica ? Transcribe Date/Time: Oct 14 2017 ?4:02P Dictated by : ZURDO SANTOS MD ? 10/14/17 XR 2 View Tib/Fib (Left) Findings: Left tibia-fibula: Tibial component of the joint prosthesis noted without associated abnormal lucency. No acute fracture or bony destruction. Right tibia and fibula: Plate and screw fixation remote distal fibular fracture. There is also remote tibial fracture with residual posterior angulation. Ghost tracks from previous tibial hardware. Tibial component of the joint prosthesis noted without associated abnormal lucency. No acute fracture or bony destruction. WOUND ASSESSMENT: Wound Number: 1 First Assessed Date: 10/14/17 Pre-existing: YES Location: Leg Orientation: Right, Lateral and Distal Wound Etiology: Venous Depth of Tissue Injury (Non-pressure): Full Thickness Diabetic Wounds:N/A Pressure Injury: N/A Pre-Measurements Initial (First Visit): 3.5 cm length x 4.0 cm width x 0.5 cm depth Post Measurement (Current): 3.0 cm length x 3.2 cm width x 0.4 cm depth % Healing Rate/#Weeks: 45.2 % -- Week 3 Wound Bed (Post-debridement): 100% red % of Healthy tissue: Undermining: No Tunneling: No Tendon/bone exposed: NO Wound Edge/Margins: Irregular wound edges and Edge attached to base Periwound Tissue: Mild erythema, Wet (macerated), and Edema Exudate Amount:Moderate Consistency:Serous Odor:Minimal Infection/Critical Colonization Localized s/s: Non-healing and Increased exudate Systemic s/s: None Local/systemic Rx: None Wound Healing Status: Chronic Clinically presenting as: Stalled wound healing Current topical treatment: Iodoflex Wound Number: 2 First Assessed Date: 10/14/17 Pre-existing: YES Location: Leg Orientation: Right, Medial and Distal Wound Etiology: Surgical Depth of Tissue Injury (Non-pressure): Partial Thickness Diabetic Wounds:N/A Pressure Injury: N/A Pre-Measurements Initial (First Visit): 0.5 cm length x 0.4 cm width x 0.1 cm depth Post Measurement (Current): Epithelialized % Healing Rate/#Weeks: Week 1 -- Healed Wound Bed (Post-debridement): % of Healthy tissue: Undermining: No Tunneling: No Tendon/bone exposed: NO Wound Edge/Margins: Normal, intact, Irregular wound edges and Edge attached to base Periwound Tissue: Normal, intact,uninvolved tissue and Dry,flaky Exudate Amount: None Consistency: None Odor:None Infection/Critical Colonization Localized s/s: None and Edema Systemic s/s: None Local/systemic Rx: None Wound Healing Status: Chronic Clinically presenting as: Healed Current topical treatment: Iodoflex Wound Number: 3 First Assessed Date: 10/14/17 Pre-existing: YES Location: Leg (calf) Orientation: Left and Posterior Wound Etiology: Venous Depth of Tissue Injury (Non-pressure): Full Thickness Diabetic Wounds:N/A Pressure Injury: N/A Pre-Measurements Initial (First Visit): 1.3 cm length x 1.2 cm width x 0.1 cm depth Post Measurement (Current): 1.1 cm length x 0.6 cm width x 0.1 cm depth % Healing Rate/#Weeks: 57.7 % -- Week 3 Wound Bed (Post-debridement): 100% red % of Healthy tissue: Undermining: No Tunneling: No Tendon/bone exposed: NO Wound Edge/Margins: Well-defined wound edges and Edge attached to base Periwound Tissue: Mild circumferential erythema, No fluctuance, induration or advancing soft tissue necrosis or ischemia Exudate Amount:Scant/Minimal Consistency:Serous Odor:None Infection/Critical Colonization Localized s/s: Non-healing and Edema Systemic s/s: None Local/systemic Rx: None Wound Healing Status: Chronic Clinically presenting as: Stalled wound healing Current topical treatment: Dry gauze pad IMPRESSION: 1. Non-healing right and left lower extremity wounds ( #1 and #3) in the setting of chronic venous insufficiency with secondary lymphedema. 2. Recurrent right medial leg wound s/p STSG in the setting of chronic edema. 3. Significant lower extremity edema secondary to underlying chronic venous insufficiency with secondary lymphedema. 4. Multiple risk factors or co-morbidities that may contribute to wound healing difficulties include hypothyroid disease, chronic atrial fibrillation on anticoagulation, coronary artery disease, COPD, dyslipidemia, hypertension, muscle weakness, osteoarthritis, GERD, depression and obesity. 5. Wound cultures positive for Enterobacter cloacae and Staph aureus most likely increased colonization. 6. Very good glucose control based on recent HgbA1c. 7. Zinc insufficiency ( precursor for collagen synthesis. TREATMENT PLAN: Debridement Type: Autolytic Enzymatic Mechanical Surgical Sharp (Y) Other: ?? Sharp debridement is performed to freshen up the wound and stimulate the healing cascade. It allows the wound to progress from the inflammatory to the proliferative phase of wound healing. Wound Dressing: See Nursing Notes for details. . Topical Rx: Wound each flushed with 10 cc of saline solution. Vitamin AANDD ointment liberally applied to both lower legs. Calcium alginate was applied to both wounds. Sites were covered with abd pads and a profore lite compression wrap. We will obtain prior authorization for bioengineered skin substitute (Bennet). Profore Multiple layer Application: A 3- layer system applied to the bilateral lower extremities. A layer of cast padding, crepe bandage, light compression bandage, followed with a layer of coban and stockinet from behind the toes to 1 below the knee. Toes were warm and pink before and post application. + dorsal pedis pulse on palpation. It was demonstrated to the patient how to check for adequate circulation. If the patient exhibits a change in color to the extremity: change in temperature, increased pain, or the compression wrap becomes wet or to tight, the patient has been instructed to remove the wrap or go to the Emergency Department. Patient voices understanding with intent to comply. Continue with leg elevation whenever possible to promote venous return to the heart. Systemic Rx: Doxycycline 100 mg by mouth twice daily x 14 days and zinc 220 mg by mouth daily x 14 days completed.. Nutritional Support: MVI, Zinc Supplement and Protein Supplement Patient is instructed to continue a healthy, well-balanced diet for nutritional support for optimal healing. Protein is the most important nutrient for wound healing. Eating adequate amounts of protein allows the body to create new cells and chemicals to heal the wound, and increases the body?s ability to fight infection. Eating high protein foods daily is recommended such as: lean meats, fish, poultry, cheese, milk, yogurt, eggs and legumes. Vitamins and minerals provide a full range of nutrients for wound healing. It can help jump start the body's production of cells and chemicals needed for healing. Vitamins and minerals can be obtained through healthy foods in your diet and by taking a multiple vitamin supplement. Vitamin C is essential for collagen synthesis. Collagen and fibroblasts compose the basis for the structure of a new wound bed. Also, a deficiency of Vitamin C prolongs the healing time and contributes to reduced resistance to infection. Laboratory: We will obtain wound cultures to determine bacterial load. Results positive for few Enterobacter cloacae complex and many Staph aureus. No anaerobic organisms or fungal elements. Wound cultures are collected to assess level of bacterial bio-burden. Excessive bio-burden can result in inflammatory and proliferative phase stagnation as well as compromise of normal wound healing physiology. Bacterial proliferation, biofilm production, critical colonization and the development of resistant organism can lead to wound infection, wound deterioration and devastating tissue loss. Knowing the organism that populated the wound can help direct therapy, particularly anti-microbial dressing choices. Vascular Evaluation: PVRs for both lower extremities to evaluate for arterial insufficiency to see if poor circulation is an issue regarding her slow healing. Awaiting results. Follow-up is scheduled in 1 week, sooner with any concerns or worsening symptoms. Luis Simons CNP Charge Capture: [id number] PROGRESS Observed: 10/28/2017 Status: COMPLETED Source: [facility] 2:30 PM CLINIC OTHER CAMPUS REPOSITORY HNO ID: [id number] Author: Luis Rodriguez) LOI Simons Service: (none) Author Type: Nurse Practitioner Type: Progress Notes Filed: 11/07/2017 7:56 AM Note Text: DATE OF CONSULTATION: 10/28/2017 REQUESTING PHYSICIAN: Mani Newman MD CONSULTING PROVIDER: Luis Simons CNP REASON FOR CONSULTATION: Non-healing lower extremity wound. HISTORY OF PRESENT ILLNESS: Rosa Beltran is a 81 year old female who presents to the [facility] for further evaluation and management of a non-healing leg wound. She has a past medical history significant for atrial fibrillation on Coumadin, coronary artery disease,?COPD, hypertension, dyslipidemia and CHF.?Patient has felt mildly short of breath over the past month. ?Increase with exertion and lying flat. She is on 40 mg of Lasix twice a day. She still is urinating appropriately. She has not had any chest pain or palpitations. ?Fever, chills, or sweats. ?No productive cough. ?No wheezing. Upon taking patients vitals, her SPO2 level was from 76% - 85%. Patient stated she had shortness of breath. She was unable to finish her sentences without catching her breath. The tips of her fingers were cyanotic. Patient was sent to the ER for further evaluation. Tiffanie BARBOSA wheeled patient to the ER. PAST MEDICAL HISTORY Diagnosis Date - Acquired hypothyroidism - Acute respiratory failure with hypoxia (HCC) 09/30/2017 - Atrial fibrillation (HCC) - CAD (coronary artery disease) Dr. Brenda Awan Hts, Promus element KIMMY LAD 11/20/2012, Stress test 04/2014 inferoapical reversible ischemia,small LVEF 48- 50%, LHC 12/2014 L main-normal, LAD widely patent, Cx diffuse mild luminal irregularities with 80%focal stenosis distal, RCA dominant with minimal luminal irregularities. 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 - Pure hypercholesterolemia - Rheumatoid arthritis ([facility]) 2007 - Sleep apnea - Stented coronary artery 12/29/2016 PAST SURGICAL HISTORY Procedure Laterality Date - CC CORONARY STENT 11/20/2012 KIMMY LAD - CC CORONARY STENT 12/20/2014 KIMMY, Cfx - SECTION HX - COLONOSCOPY 06/10/2017 [facility], Nonspecific cecal ulcer - GASTRIC BYPASS HX 1986 - HERNIA REPAIR HX 1987; 1989 - PAST SURGICAL HISTORY OF Right 09/2015 right tibia fracture ORIF - PAST SURGICAL HISTORY OF Right 01/20/2016 Removal of hardware, right tibia - TOTAL KNEE REPLACEMENT Right 2003 [facility] Gen. - TOTAL KNEE REPLACEMENT Left 2004 [facility] Gen. MEDICATIONS ergocalciferol, vitamin D2, (DRISDOL) 50,000 unit capsule Take 1 capsule by mouth once each week. levothyroxine (LEVOXYL) 100 mcg tablet Take 1 tablet by mouth once daily. Take on empty stomach. For Thyroid. gabapentin (NEURONTIN) 300 mg capsule Take 1 capsule by mouth twice daily. metoprolol tartrate, short acting, (LOPRESSOR) 50 mg tablet TAKE ONE TABLET BY MOUTH TWICE DAILY furosemide (LASIX) 40 mg tablet Take 1 tablet by mouth twice daily. COMPOUNDED PRESCRIPTION Calcium Alginate 4x4 Dressing, change daily Dx: Blister left leg with infection S80.822A, L08.9; Lymphedema I89.0. Wound dimensions: 4 x 3 cm acetaminophen (TYLENOL) 500 mg tablet Take 1,000 mg by mouth every 8 hours as needed. aspirin, enteric coated (ASPIRIN, ENTERIC COATED) 81 mg EC tablet Take 81 mg by mouth once daily. warfarin (COUMADIN) 1 mg tablet Take 1 mg by mouth daily as directed. Take 1 tablet (1mg) by mouth once daily. Take with 1 x 3mg tablet to total 4mg by mouth once daily. warfarin (COUMADIN) 3 mg tablet Take 3 mg by mouth daily as directed. Take 1 tablet (3mg) by mouth once daily. Take with 1 x 1mg tablet to total 4mg by mouth once daily. lisinopril (ZESTRIL) 2.5 mg tablet Take 2.5 mg by mouth once daily. omeprazole (PRILOSEC) 20 mg capsule Take 20 mg by mouth once daily. spironolactone (ALDACTONE) 25 mg tablet Take 25 mg by mouth once daily. docusate sodium (COLACE) 100 mg capsule Take 100 mg by mouth once daily as needed. therapeutic multivitamin w/ iron (THERAGRAN-M) 9 mg iron-400 mcg tablet Take 1 tablet by mouth once daily. ALLERGIES No Known Allergies ezekiel history on file. FAMILY HISTORY: Significant for diabetes mellitus (mother) SOCIALHISTORY Substance Use Topics - Smoking status: Passive Smoke Exposure - Never Smoker - Smokeless tobacco: Never Used Comment: smoked for 40 years - Alcohol use No REVIEW OF SYSTEM: PAIN ASSESSMENT: Negative for pain, history of chronic pain, or current treatment for a chronic pain condition. GENERAL: No weight loss, malaise or fevers HEENT: Negative for frequent or significant headaches, No changes in hearing or vision, no nose bleeds or other nasal problems NECK: Negative for lumps, goiter, pain and significant neck swelling RESPIRATORY: Negative for cough, hemoptysis, wheezing, positive for shortness of breath CARDIOVASCULAR: Negative for chest pain,palpitations; has chronic leg swelling GI: No nausea, vomiting, or diarrhea : No history of dysuria, frequency or incontinence MUSCULOSKELETAL: Negative for joint pain or swelling, back pain or muscle pain SKIN: As per HPI. Negative for any other lesions, rash, and itching PSYCH: Negative for sleep disturbance, mood disorder and recent psychosocial stressors HEMATOLOGY/LYMPHOLOGY: Negative for prolonged bleeding, bruising easily or swollen nodes ENDOCRINE: Negative for cold or heat intolerance, polyuria, polydipsia and goiter NEURO: No history of headaches, syncope, paralysis, seizures or tremors 10/28/17 1438 10/28/17 1518 BP: 152/88 Pulse: (!) 50 Resp: 22 Temp: 36.5 ?C (97.7 ?F) SpO2: 88% 92% PHYSICAL EXAMINATION: HEENT: PERRLA , sclera non-icteric, EOM intact, mucous membrane moist, pink and w/o lesions Comments: Neck: Supple, no bruit, no masses, trachea midline Comments: Chest: Lungs clear to auscultation, no accessory muscle use for respiration Comments: Heart: Regular rate/rhythm, normal S1,S2, no murmur, rubs or gallops Comments: Abdomen: Soft, non-tender, non-distended, + bowel sounds, no bruit, no organomegaly Comments: Extremity: Dorsalis pedis : Present (Y) Absent Diminished Doppler Posterior Tibialis: Present (Y) Absent Diminished Doppler Capillary Refill: < 3 sec. (Y) > 3 sec. 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 WBC , Hgb , Hct , PLT , Glu , BUN , Cr , Na , K , Cl , Albumin , Total protein WOUND ASSESSMENT: Deferred IMPRESSION: 1. Chronic venous stasis ulcer bilateral lower extremities PLAN: Wound each flushed with 10 cc of saline solution. Vitamin AANDD ointment liberally applied to both lower legs. Calcium alginate was applied to both wounds. Sites were covered with abd pads and a profore lite compression wrap. Profore Multiple layer Application: A 3- layer system applied to the bilateral lower extremities. A layer of cast padding, crepe bandage, light compression bandage, followed with a layer of coban and stockinet from behind the toes to 1 below the knee. Toes were warm and pink before and post application. + dorsal pedis pulse on palpation. It was demonstrated to the patient how to check for adequate circulation. If the patient exhibits a change in color to the extremity: change in temperature, increased pain, or the compression wrap becomes wet or to tight, the patient has been instructed to remove the wrap or go to the Emergency Department. Patient voices understanding with intent to comply. #1 Right lateral distal leg: caused from too tight leg wraps. Foul odor noted on exam. Sq debridement per provider. L: 3.3 cm x W: 4.0 cm x D: 0.6 cm #2 Right medial distal leg: Broken ankle 1 yr ago per patient. Healed today #3 left distal calf: Caused from too tight of a compression wrap. L: 1.5 cm x W: 1.3 cm x D: 0.15 cm, not debrided Measurements: Right Calf: 39.5 cm Right Ankle: 25.5 cm Left Calf: 36.0 cm Left Ankle: 26 cm PLAN: Home care to visit 3 x weekly PVR's and Venous doppler to be scheduled JUN Rx: Zinc and Doxycycline Copy of wound care instructions faxed to [facility] as patient's request. [phone] Luis Simons CNP CHARGE CAPTURE: [id number] . PROCEDURE Observed: 10/28/2017 Status: COMPLETED Source: [facility] 2:30 PM CLINIC OTHER CAMPUS REPOSITORY O ID: [id number] Author: Luis Lyles (Loi) LOI Simons Service: (none) Author Type: Nurse Practitioner Type: Procedures Filed: 11/07/2017 7:56 AM Note Text: A procedural pause was conducted immediately prior to starting the wound debridement to verify correct patient identity using two patient identifiers: the correct site and correct procedure. Permission from the patient to perform the procedure was obtained. After providing local analgesia with Lidocaine 2% gel, a full-thickness excisional debridement of bilateral leg wounds was performed and carried through the skin and subcutaneous tissue, using a sterile #15 blade, iris scissors, and forceps to remove the non-viable or devitalized tissue. The debridement extended into the viable wound margin/s to promote a healthy, active wound edge to support healing. The patient tolerated the procedure well without complications. Hemostasis was achieved with direct pressure. The wound/s was/were then copiously irrigated with sterile normal saline and dressings were applied. CNOV Observed: 10/28/2017 Status: COMPLETED Source: [facility] 2:30 PM [facility] OTHER CAMPUS REPOSITORY Office Visit ([facility]) ROSA BELTRAN ([id number]) 1935 F Date Time Provider Department 10/28/17 2:30 PM LUIS SIMONS, (LOI) [facility] During your visit today, we recorded the following information about you: Temperature Pulse Respiration Blood pressure 97.7 degrees 50/minute 22/minute 152/88 Luis Simons CNP, LOI 11/29/2017 2:45 PM Addendum DATE OF VISIT: 10/28/2017 REASON FOR VISIT: Non-healing lower extremity wound. HISTORY OF PRESENT ILLNESS: Rosa Beltran is a 81 year old female who presents to the [facility] for further evaluation and management of a non-healing leg wound. She has a past medical history significant for atrial fibrillation on Coumadin, coronary artery disease,?COPD, hypertension, dyslipidemia and CHF.?Patient has felt mildly short of breath over the past month. ?Increase with exertion and lying flat. She is on 40 mg of Lasix twice a day. She still is urinating appropriately. She has not had any chest pain or palpitations. ?Fever, chills, or sweats. ?No productive cough. ?No wheezing. Upon taking patients vitals, her SPO2 level was from 76% - 85%. Patient stated she had shortness of breath. She was unable to finish her sentences without catching her breath. The tips of her fingers were cyanotic. Patient was sent to the ER for further evaluation. Tiffanie BARBOSA wheeled patient to the ER. INTERVAL HISTORY: Patient was sent tot he ED during her previous visit due to low oxygenation. She is now on 2 L of oxygen at all times. She denies any breathing difficulty at this time. She is an 81 year old white female with a long-standing history of swelling in her lower extremities secondary to lymphedema. Approximately 2 years ago, she sustained a fracture to her right ankle, requiring surgical intervention. The operative site became infected, and required prolonged treatment and eventually a skin graft for complete wound closure. As a result, the patient's ambulatory capacity has been impaired. Furthermore, she is morbidly obese which limits her ambulation. The patient leads a relatively sedentary lifestyle and requires a walker for ambulation. She spends a great part of her day in a sitting position. She sleeps with the head of the bed elevated. Swelling in her lower extremities has been on-going for many years. The patient has undergone a battery of diagnostic tests. A non-invasive lower extremity arterial study in December 2016 reveals normal-ankle brachial indices, bilaterally. Venous doppler examination on 01/14 reveals incompetence of the great saphenous veins, bilaterally. There is also incompetence of the small saphenous veins, bilaterally and the right accessory saphenous vein. At present, she has three wounds, 2 on the right distal leg and the other is on the left posterior calf. The left leg wound has been present for over a year and was managed with silver alginate, NPWT, Santyl, serial sharp wound debridements, compression therapy using Surepress and compression pumps. Patient's wound cultures over the past several months have grown out Enterobacter cloacae, MRSA, coag-staph aureus, and in January grew out Pseudomonas, managed with oral antibiotics. IIn July of this year, she developed a new wound on the right lateral distal leg, then in July, she experience cellulitis of both legs requiring hospitalization. In the last year, she has been followed by Dr. Jaskaran Chance at the [facility]. It was felt that her home support system was inadequate and that she may not have the resources in her home environment to appropriately care for her needs. In this regard, a geriatric social work professor consultation had been recommended on several occassions, but patient apparently insisted on remaining in her home environment despite that there was thought that is may be less than optimal. The patient is here at the [facility] for a second opinion regarding management of the abovementioned bilateral lower extremity wounds. She offers no other complaints. She denies any fevers, chills, wound-related pain or other related symptoms. 10/21/2017 Patient presents for follow-up. Overall, her lower extremity wounds are progressing favorably. One of the three is now healed. The remaining two show evidence of wound contraction and granulation tissue formation. She offers no new complaints. The edema in her lower extremities is well- controlled. She denies any fever, chills or other related symptoms. 10/28/17 No new complains today. Wounds continue to show improvement. Edema in LEs is well controlled with compression therapy. To date, wounds have been managed with sharp debridement, antibacterial dressing and oral antibiotics and nutritional support. PAST MEDICAL HISTORY Diagnosis Date - Acquired hypothyroidism - Acute respiratory failure with hypoxia ([facility]) 09/30/2017 - Atrial fibrillation ([facility]) - CAD (coronary artery disease) Dr. Brenda Awan Hts, Promus element KIMMY LAD 11/20/2012, Stress test 04/2014 inferoapical reversible ischemia,small LVEF 48-50%, LHC 12/2014 L main-normal, LAD widely patent, Cx diffuse mild luminal irregularities with 80%focal stenosis distal, RCA dominant with minimal luminal irregularities. 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 - Pure hypercholesterolemia - Rheumatoid arthritis ([facility]) 2007 - Sleep apnea - Stented coronary artery 12/29/2016 PAST SURGICAL HISTORY Procedure Laterality Date - CC CORONARY STENT 11/20/2012 KIMMY LAD - CC CORONARY STENT 12/20/2014 KIMMY, Cfx - SECTION H[facility], Nonspecific cecal ulcer - GASTRIC BYPASS HX 1986 - HERNIA REPAIR HX 1987; 1989 - PAST SURGICAL HISTORY OF Right 09/2015 right tibia fracture ORIF - PAST SURGICAL HISTORY OF Right 01/20/2016 Removal of hardware, right tibia - TOTAL KNEE REPLACEMENT Right 2003 [facility] Gen. - TOTAL KNEE REPLACEMENT Left 2004 [facility] Gen. MEDICATIONS ergocalciferol, vitamin D2, (DRISDOL) 50,000 unit capsule Take 1 capsule by mouth once each week. levothyroxine (LEVOXYL) 100 mcg tablet Take 1 tablet by mouth once daily. Take on empty stomach. For Thyroid. gabapentin (NEURONTIN) 300 mg capsule Take 1 capsule by mouth twice daily. metoprolol tartrate, short acting, (LOPRESSOR) 50 mg tablet TAKE ONE TABLET BY MOUTH TWICE DAILY furosemide (LASIX) 40 mg tablet Take 1 tablet by mouth twice daily. COMPOUNDED PRESCRIPTION Calcium Alginate 4x4 Dressing, change daily Dx: Blister left leg with infection S80.822A, L08.9; Lymphedema I89.0. Wound dimensions: 4 x 3 cm acetaminophen (TYLENOL) 500 mg tablet Take 1,000 mg by mouth every 8 hours as needed. aspirin, enteric coated (ASPIRIN, ENTERIC COATED) 81 mg EC tablet Take 81 mg by mouth once daily. warfarin (COUMADIN) 1 mg tablet Take 1 mg by mouth daily as directed. Take 1 tablet (1mg) by mouth once daily. Take with 1 x 3mg tablet to total 4mg by mouth once daily. warfarin (COUMADIN) 3 mg tablet Take 3 mg by mouth daily as directed. Take 1 tablet (3mg) by mouth once daily. Take with 1 x 1mg tablet to total 4mg by mouth once daily. lisinopril (ZESTRIL) 2.5 mg tablet Take 2.5 mg by mouth once daily. omeprazole (PRILOSEC) 20 mg capsule Take 20 mg by mouth once daily. spironolactone (ALDACTONE) 25 mg tablet Take 25 mg by mouth once daily. docusate sodium (COLACE) 100 mg capsule Take 100 mg by mouth once daily as needed. therapeutic multivitamin w/ iron (THERAGRAN-M) 9 mg iron-400 mcg tablet Take 1 tablet by mouth once daily. ALLERGIES No Known Allergies FAMILY HISTORY: Patient's father in his 70s with a history of arthritis. Her mother at the age of 90 with a history of arthritis. SOCIAL HISTORY Patient is a , lives alone, but has a son nearby. She has 6 children. Substance Use Topics - Smoking status: Passive Smoke Exposure - Never Smoker - Smokeless tobacco: Never Used Comment: smoked for 40 years - Alcohol use No REVIEW OF SYSTEM: PAIN ASSESSMENT: Negative for pain, history of chronic pain, or current treatment for a chronic pain condition. GENERAL: No weight loss, malaise or fevers HEENT: Negative for frequent or significant headaches, No changes in hearing or vision, no nose bleeds or other nasal problems NECK: Negative for lumps, goiter, pain and significant neck swelling RESPIRATORY: Negative for cough, hemoptysis, wheezing, positive for shortness of breath CARDIOVASCULAR: Negative for chest pain,palpitations; has chronic leg swelling GI: No nausea, vomiting, or diarrhea : No history of dysuria, frequency or incontinence MUSCULOSKELETAL: Negative for joint pain or swelling, back pain or muscle pain SKIN: As per HPI. Negative for any other lesions, rash, and itching PSYCH: Negative for sleep disturbance, mood disorder and recent psychosocial stressors HEMATOLOGY/LYMPHOLOGY: Negative for prolonged bleeding, bruising easily or swollen nodes ENDOCRINE: Negative for cold or heat intolerance, polyuria, polydipsia and goiter NEURO: No history of headaches, syncope, paralysis, seizures or tremors 10/28/17 1430 BP: 152/88 Pulse: 50 Resp: 22 Temp: 36.5 ?C (97.8 ?F) TempSrc: Oral SpO2: 92% Weight: 88.1 kg (194 lb 4.8 oz) PHYSICAL EXAMINATION: HEENT: PERRLA , sclera non-icteric, EOM intact, mucous membrane moist, pink and w/o lesions Comments: Neck: Supple, no bruit, no masses, trachea midline Comments: Chest: Lungs clear to auscultation, no accessory muscle use for respiration Comments: Heart: Regular rate/rhythm, normal S1,S2, no murmur, rubs or gallops Comments: Abdomen: Soft, non-tender, non-distended, + bowel sounds, no bruit, no organomegaly Comments: Extremity: Dorsalis pedis : Present (Y) Absent Diminished Doppler Posterior Tibialis: Present (Y) Absent Diminished Doppler Capillary Refill: ANDlt; 3 sec. (Y) ANDgt; 3 sec. 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 Based upon the findings of this resting non-invasive lower extremity arterial study, arterial perfusion to ankle level appears to be relatively normal bilaterally. Triphasic and biphasic waveforms were noted at ankle level bilaterally. Resting ankle- brachial indices were bilaterally normal. 08/01/17 X-Ray 3-View Right Ankle Impression: There is prior open reduction internal fixation of the fibula which appears to be relatively intact allowing for advanced bony osteopenia. There is an irregular appearance of the lateral side distal tibia which is compatible with a prior fracture for which a new fracture on the lateral side is not excluded. The fracture could be potentially be associated with new trauma or potentially infection. Recommend consideration for follow- up study such as MRI or potentially three-phase bone scan. Flattened appearance of the arch of the foot with degenerative change of the tarsotarsal joints. Diffuse soft tissue swelling. Electronically Signed: Kelly Camarena MD at 20:15 EDT Tel , Service support , ? 10/14/17 Hemoglobin A1C = 5.8 ?? 10/14/17 WBC 8.4, Hgb 12.2, Hct 38.5, PLT 211, Glu 91, BUN 24, Cr 0.88, Na 136, K 4.7, Cl 100, Albumin 3.6, Total protein 9.1 ? 10/14/17 XR 2 View Tib/Fib (Left) Findings: Left tibia-fibula: Tibial component of the joint prosthesis noted without associated abnormal lucency. No acute fracture or bony destruction. Right tibia and fibula: Plate and screw fixation remote distal fibular fracture. There is also remote tibial fracture with residual posterior angulation. Ghost tracks from previous tibial hardware. Tibial component of the joint prosthesis noted without associated abnormal lucency. No acute fracture or bony destruction. ? Stereotype Finisher: DWIGHT ? Transcribe Date/Time: Oct 14 2017 ?4:02P Dictated by : ZURDO SANTOS MD ? 10/14/17 XR 2 View Tib/Fib (Right) Findings: Left tibia-fibula: Tibial component of the joint prosthesis noted without associated abnormal lucency. No acute fracture or bony destruction. Right tibia and fibula: Plate and screw fixation remote distal fibular fracture. There is also remote tibial fracture with residual posterior angulation. Ghost tracks from previous tibial hardware. Tibial component of the joint prosthesis noted without associated abnormal lucency. No acute fracture or bony destruction. ? Stereotype Finisher: DWIGHT ? Transcribe Date/Time: Oct 14 2017 ?4:02P Dictated by : ZURDO SANTOS MD ? 10/14/17 XR 2 View Tib/Fib (Left) Findings: Left tibia-fibula: Tibial component of the joint prosthesis noted without associated abnormal lucency. No acute fracture or bony destruction. Right tibia and fibula: Plate and screw fixation remote distal fibular fracture. There is also remote tibial fracture with residual posterior angulation. Ghost tracks from previous tibial hardware. Tibial component of the joint prosthesis noted without associated abnormal lucency. No acute fracture or bony destruction. WOUND ASSESSMENT: Wound Number: 1 First Assessed Date: 10/14/17 Pre-existing: YES Location: Leg Orientation: Right, Lateral and Distal Wound Etiology: Venous Depth of Tissue Injury (Non-pressure): Full Thickness Diabetic Wounds:N/A Pressure Injury: N/A Pre-Measurements Initial (First Visit): 3.5 cm length x 4.0 cm width x 0.5 cm depth Post Measurement (Current): 3.3 cm length x 4.0 cm width x 0.5 cm depth % Healing Rate/#Weeks: 5.7% -- Week 3 Wound Bed (Post-debridement): 100% red % of Healthy tissue: Undermining: No Tunneling: No Tendon/bone exposed: NO Wound Edge/Margins: Irregular wound edges and Edge attached to base Periwound Tissue: Mild erythema, Wet (macerated), and Edema Exudate Amount:Moderate Consistency:Serous Odor:Minimal Infection/Critical Colonization Localized s/s: Non-healing and Increased exudate Systemic s/s: None Local/systemic Rx: None Wound Healing Status: Chronic Clinically presenting as: Stalled wound healing Current topical treatment: Iodoflex Wound Number: 2 First Assessed Date: 10/14/17 Pre-existing: YES Location: Leg Orientation: Right, Medial and Distal Wound Etiology: Surgical Depth of Tissue Injury (Non-pressure): Partial Thickness Diabetic Wounds:N/A Pressure Injury: N/A Pre-Measurements Initial (First Visit): 0.5 cm length x 0.4 cm width x 0.1 cm depth Post Measurement (Current): Epithelialized % Healing Rate/#Weeks: Week 1 -- Healed Wound Bed (Post-debridement): % of Healthy tissue: Undermining: No Tunneling: No Tendon/bone exposed: NO Wound Edge/Margins: Normal, intact, Irregular wound edges and Edge attached to base Periwound Tissue: Normal, intact,uninvolved tissue and Dry,flaky Exudate Amount: None Consistency: None Odor:None Infection/Critical Colonization Localized s/s: None and Edema Systemic s/s: None Local/systemic Rx: None Wound Healing Status: Chronic Clinically presenting as: Healed Current topical treatment: Iodoflex Wound Number: 3 First Assessed Date: Pre-existing: YES Location: Leg (calf) Orientation: Left and Posterior Wound Etiology: Venous Depth of Tissue Injury (Non-pressure): Full Thickness Diabetic Wounds:N/A Pressure Injury: N/A Pre-Measurements Initial (First Visit): 1.3 cm length x 1.2 cm width x 0.1 cm depth Post Measurement (Current): 1.5 cm length x 1.3 cm width x 0.15 cm depth % Healing Rate/#Weeks: -1.9% -- Week 2 Wound Bed (Post-debridement): 100% red % of Healthy tissue: Undermining: No Tunneling: No Tendon/bone exposed: NO Wound Edge/Margins: Well-defined wound edges and Edge attached to base Periwound Tissue: Mild circumferential erythema, No fluctuance, induration or advancing soft tissue necrosis or ischemia Exudate Amount:Scant/Minimal Consistency:Serous Odor:None Infection/Critical Colonization Localized s/s: Non-healing and Edema Systemic s/s: None Local/systemic Rx: None Wound Healing Status: Chronic Clinically presenting as: Stalled wound healing Current topical treatment: Dry gauze pad IMPRESSION: 1. Non-healing right and left lower extremity wounds ( #1 and #3) in the setting of chronic venous insufficiency with secondary lymphedema. 2. Recurrent right medial leg wound s/p STSG in the setting of chronic edema. 3. Significant lower extremity edema secondary to underlying chronic venous insufficiency with secondary lymphedema. 4. Multiple risk factors or co-morbidities that may contribute to wound healing difficulties include hypothyroid disease, chronic atrial fibrillation on anticoagulation, coronary artery disease, COPD, dyslipidemia, hypertension, muscle weakness, osteoarthritis, GERD, depression and obesity. 5. Wound cultures positive for Enterobacter cloacae and Staph aureus most likely increased colonization. 6. Very good glucose control based on recent HgbA1c. 7. Zinc insufficiency ( precursor for collagen synthesis. TREATMENT PLAN: Debridement Type: Autolytic Enzymatic Mechanical Surgical Sharp (Y) Other: ?? Sharp debridement is performed to ANDquot;freshen upANDquot; the wound and stimulate the healing cascade. It allows the wound to progress from the inflammatory to the proliferative phase of wound healing. Wound Dressing: See Nursing Notes for details. . Topical Rx: Wound each flushed with 10 cc of saline solution. Vitamin AANDamp;D ointment liberally applied to both lower legs. Calcium alginate was applied to both wounds. Sites were covered with abd pads and a profore lite compression wrap. Profore Multiple layer Application: A 3- layer system applied to the bilateral lower extremities. A layer of cast padding, crepe bandage, light compression bandage, followed with a layer of coban and stockinet from behind the toes to 1ANDquot; below the knee. Toes were warm and pink before and post application. + dorsal pedis pulse on palpation. It was demonstrated to the patient how to check for adequate circulation. If the patient exhibits a change in color to the extremity: change in temperature, increased pain, or the compression wrap becomes wet or to tight, the patient has been instructed to remove the wrap or go to the Emergency Department. Patient voices understanding with intent to comply. Systemic Rx: Continue Doxycycline 100 mg by mouth twice daily x 14 days and zinc 220 mg by mouth daily x 14 days until gone. Nutritional Support: MVI, Zinc Supplement and Protein Supplement Patient is instructed to continue a healthy, well-balanced diet for nutritional support for optimal healing. Protein is the most important nutrient for wound healing. Eating adequate amounts of protein allows the body to create new cells and chemicals to heal the wound, and increases the body?s ability to fight infection. Eating high protein foods daily is recommended such as: lean meats, fish, poultry, cheese, milk, yogurt, eggs and legumes. Vitamins and minerals provide a full range of nutrients for wound healing. It can help ANDquot;jump startANDquot; the body's production of cells and chemicals needed for healing. Vitamins and minerals can be obtained through healthy foods in your diet and by taking a multiple vitamin supplement. Vitamin C is essential for collagen synthesis. Collagen and fibroblasts compose the basis for the structure of a new wound bed. Also, a deficiency of Vitamin C prolongs the healing time and contributes to reduced resistance to infection. Laboratory: We will obtain wound cultures to determine bacterial load. Results positive for few Enterobacter cloacae complex and many Staph aureus. No anaerobic organisms or fungal elements. Wound cultures are collected to assess level of bacterial bio-burden. Excessive bio-burden can result in inflammatory and proliferative phase stagnation as well as compromise of normal wound healing physiology. Bacterial proliferation, biofilm production, critical colonization and the development of resistant organism can lead to wound infection, wound deterioration and devastating tissue loss. Knowing the organism that populated the wound can help direct therapy, particularly anti-microbial dressing choices. Vascular Evaluation: We will order PVRs for both lower extremities to evaluate for arterial insufficiency to see if poor circulation is an issue regarding her slow healing. Follow-up is scheduled in 1 week, sooner with any concerns or worsening symptoms. Luis Simons CNP Charge Capture: [id number] Luis Simons CNP, GROUND SYSTEMS ENGINEER 11/29/2017 12:39 PM Signed A procedural pause was conducted immediately prior to starting the wound debridement to verify correct patient identity using two patient identifiers: the correct site and correct procedure. Permission from the patient to perform the procedure was obtained. After providing local analgesia with Lidocaine 2% gel, a full-thickness excisional debridement of wounds #1ANDamp; #3 was performed and carried through the skin and subcutaneous tissue, using a sterile #15 blade, iris scissors, and forceps to remove the non-viable or devitalized tissue. The debridement extended into the viable wound margin/s to promote a healthy, active wound edge to support healing. The patient tolerated the procedure well without complications. Hemostasis was achieved with direct pressure. The wound/s was/were then copiously irrigated with sterile normal saline and dressings were applied. Ayanna Ross Ma 10/28/2017 2:40 PM Signed Patient's blood pressure is 152/88,has not taken medication yet today. Tiffanie Humphrey, RN, RN 10/28/2017 3:02 PM Signed Nursing Note See provider note for wound description and measurements Dressing removed with dakins Saline 0.9% solution applied to all wounds In the presence and direction of the provider wound care as written below: Patient was sent to the ed during her previous visit due to low oxygenation. Patient in on oxygen 2 liters/NC at all times. Patient oxygenation 88% on 2 liters n/c. Provider gave the instruction to turn 02 up to 3 liters n/c. Ox sat done 10 minutes later and it was 91-92%. Lido gel applied to both wounds prior to debridement. Wound each flushed with 10 cc of saline solution. Vitamin AANDamp;D ointment liberally applied to both lower legs. Calcium alginate ag was applied to both wounds. Sites were covered with abd pads and a profore lite compression wrap. Profore Multiple layer Application: A 3- layer system applied to the bilateral lower extremities. A layer of cast padding, crepe bandage, light compression bandage, followed with a layer of coban and stockinet from behind the toes to 1ANDquot; below the knee. Toes were warm and pink before and post application. + dorsal pedis pulse on palpation. It was demonstrated to the patient how to check for adequate circulation. If the patient exhibits a change in color to the extremity: change in temperature, increased pain, or the compression wrap becomes wet or to tight, the patient has been instructed to remove the wrap or go to the Emergency Department. Patient voices understanding with intent to comply. #1 Right lateral distal leg: caused from too tight leg wraps. Sq debridement per provider. L: 3.0 cm x W: 3.2 cm x D: 0.4 cm #2 Right medial distal leg: Broken ankle 1 yr ago per patient. Healed today #3 left distal calf: Caused from too tight of a compression wrap. L: 1.0 cm x W: 0.8 cm x D: 0.1 cm, not debrided Measurements: Right Calf: 39 cm Right Ankle: 28 cm Left Calf: 38 cm Left Ankle: 24.5 cm PLAN: Home care to visit 3 x weekly PVR's and Venous doppler to be scheduled JUN Rx: Zinc and Doxycycline Copy of wound care instructions faxed to [facility] as patient's request. [phone] EDUCATION: The patient/family was instructed how to wash the wound(s) with dial soap, rinsing with water, ANDamp; patting dry. Visual demonstration on how to apply the dressing. Signs ANDamp; symptoms of infection were reviewed: Increased redness, swelling, pain, green, yellow drainage, fever or chills all would need to be evaluated by a Physician. Patient received typed homegoing wound care instructions and has expressed intent to comply. Tiffanie Humphrey, RN, RN 10/28/2017 2:58 PM Addendum WOUND CARE INSTRUCTIONS Wound location: Right medial distal leg/Right lateral distal leg/Left calf 1. Wash your hands with soap and water before and after wound care. 2. Gather all supplies needed. 3. Wash wound with Dial soap and water. Pat dry. Moisturize with vitamin AANDamp;D 4. Apply calcium alginate ag to the wound base. 5. Cover with 4x4's, abd pad 6. Secure dressing with Profore 3-layer compression wrap 7. Home Care to change your dressing 3 x weekly FOR COMPRESSION WRAPS/TUBIGRIP ? Cast cover may be used to allow you to shower ? Remove compression wraps if they become uncomfortable or cause change in color or sensation to the extremity. Rewrap as instructed. To give your wound the best chance to heal: - Eat three balanced meals daily focusing on the protein - Control swelling by elevating the extremity above your heart - exercise the extremity - Complete your wound care instructions - Vitamin C 500 mg twice daily - Multiple Vitamin Daily - Drink a protein shake daily - continue home care Report any of the following changes to the Wound Center at [phone] or go to the Emergency Department: ? Fever or chills ? Increased drainage ? Green or yellow drainage ? Foul odor ? Increased pain ? Hardness around the wound ? Redness, warmth or swelling of the surrounding tissue ? 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] Other Visit Diagnosis:Non-pressure chronic ulcer of left lower leg with fat layer exposed (HCC) [L97.922] Prescriptions as of 10/28/2017 Sig: ZINC SULFATE 220 MG TABLET Take 1 tablet by mouth once d* DOXYCYCLINE MONOHYDRATE 100 M* Take 1 capsule by mouth twice* ACETAMINOPHEN 500 MG TABLET Take 1,000 mg by mouth every * ASPIRIN 81 MG TABLET,DELAYED * Take 81 mg by mouth once oliver* WARFARIN 1 MG TABLET Take 1 mg by mouth daily as d* WARFARIN 3 MG TABLET Take 3 mg by mouth daily as d* LISINOPRIL 2.5 MG TABLET Take 2.5 mg by mouth once yuly* OMEPRAZOLE 20 MG CAPSULE,LUIS MIGUEL* Take 20 mg by mouth once oliver* SPIRONOLACTONE 25 MG TABLET Take 25 mg by mouth once oliver* DOCUSATE SODIUM 100 MG CAPSULE Take 100 mg by mouth once yuly* MULTIVITAMIN-IRON 9 MG-FOLIC * Take 1 tablet by mouth once d* ERGOCALCIFEROL (VITAMIN D2) 5* Take 1 capsule by mouth once * LEVOTHYROXINE 100 MCG TABLET Take 1 tablet by mouth once d* GABAPENTIN 300 MG CAPSULE Take 1 capsule by mouth twice* METOPROLOL TARTRATE 50 MG TAB* TAKE ONE TABLET BY MOUTH TWIC* FUROSEMIDE 40 MG TABLET Take 1 tablet by mouth twice * COMPOUNDED PRESCRIPTION Calcium Alginate 4x4 Dressing* Problem List As Of Date 10/28/2017 Noted Resolved Gastroesophageal reflux disease without esophag*INVALID FOR* Chronic atrial fibrillation (HCC) [I48.2] INVALID FOR* Priority: B Pure hypercholesterolemia [E78.00] Hypertension [I10] Priority: D More... Acquired hypothyroidism [E03.9] CAD (coronary artery disease) [I25.10] More... Depressive disorder [F32.9] INVALID FOR*07/18/2017 Primary osteoarthritis involving multiple joint*INVALID FOR* Lymphedema of both lower extremities [I89.0] INVALID FOR* Mouth dryness [R68.2] INVALID FOR* Muscular weakness [M62.81] INVALID FOR* Dorsalgia [M54.9] INVALID FOR* Stented coronary artery [Z95.5] INVALID FOR* Priority: A Gastric bypass status for obesity [Z98.84] INVALID FOR* Priority: C Bilateral leg ulcer (HCC) [L97.919, L97.929] INVALID FOR* Priority: E More... Polyneuropathy (HCC) [G62.9] INVALID FOR* Cecal ulcer [K63.3] INVALID FOR* Acute respiratory failure with hypoxia (HCC) [J*INVALID FOR*10/10/2017 Priority: Severe Anticoagulation goal of INR 2 to 3 [Z51.81, Z79*INVALID FOR* Priority: Mild More... ANASARCA/HYPOXIA 09/30/17 ADMISSION SUMMARY [Z9*INVALID FOR* Priority: Very Severe More... Skin bulla [R23.8] INVALID FOR* Priority: Mild More... Respiratory failure with hypoxia (HCC) [J96.91] INVALID FOR* Priority: Severe Heart failure with preserved ejection fraction *INVALID FOR* Priority: A More... Physical debility [R53.81] INVALID FOR* Priority: Moderate More... Requires continuous at home supplemental oxygen*INVALID FOR* More... Other instructions from your clinician: WOUND CARE INSTRUCTIONS Wound location: Right medial distal leg/Right lateral distal leg/Left calf 1. Wash your hands with soap and water before and after wound care. 2. Gather all supplies needed. 3. Wash wound with Dial soap and water. Pat dry. Moisturize with vitamin AANDD 4. Apply calcium alginate ag to the wound base. 5. Cover with 4x4's, abd pad 6. Secure dressing with Profore 3-layer compression wrap 7. Home Care to change your dressing 3 x weekly FOR COMPRESSION WRAPS/TUBIGRIP ? Cast cover may be used to allow you to shower ? Remove compression wraps if they become uncomfortable or cause change in color or sensation to the extremity. Rewrap as instructed. To give your wound the best chance to heal: - Eat three balanced meals daily focusing on the protein - Control swelling by elevating the extremity above your heart - exercise the extremity - Complete your wound care instructions - Vitamin C 500 mg twice daily - Multiple Vitamin Daily - Drink a protein shake daily - continue home care Report any of the following changes to the Wound Center at [phone] or go to the Emergency Department: ? Fever or chills ? Increased drainage ? Green or yellow drainage ? Foul odor ? Increased pain ? Hardness around the wound ? Redness, warmth or swelling of the surrounding tissue ? Color change to the wound Return to the Wound Center in 1 week to see Marlen Please keep appointment for PVR's and venous doppler study Probiotic may be purchased at your local drug store and taken twice daily while taking your antibiotic Luis Simons GROUND SYSTEMS ENGINEER/mjl Visit Notes: >> Ayanna Ross Ma TueOct 28, 2017 2:40 PM Status: Signed Patient's blood pressure is 152/88,has not taken medication yet today. >> Tiffanie (Rn) ELENA Humphrey TueOct 28, 2017 2:46 PM Status: Signed Nursing Note See provider note for wound description and measurements Dressing removed with dakins Saline 0.9% solution applied to all wounds In the presence and direction of the provider wound care as written below: Patient was sent to the ed during her previous visit due to low oxygenation. Patient in on oxygen 2 liters/NC at all times. Patient oxygenation 88% on 2 liters n/c. Provider gave the instruction to turn 02 up to 3 liters n/c. Ox sat done 10 minutes later and it was 91-92%. Lido gel applied to both wounds prior to debridement. Wound each flushed with 10 cc of saline solution. Vitamin AANDD ointment liberally applied to both lower legs. Calcium alginate ag was applied to both wounds. Sites were covered with abd pads and a profore lite compression wrap. Profore Multiple layer Application: A 3- layer system applied to the bilateral lower extremities. A layer of cast padding, crepe bandage, light compression bandage, followed with a layer of coban and stockinet from behind the toes to 1 below the knee. Toes were warm and pink before and post application. + dorsal pedis pulse on palpation. It was demonstrated to the patient how to check for adequate circulation. If the patient exhibits a change in color to the extremity: change in temperature, increased pain, or the compression wrap becomes wet or to tight, the patient has been instructed to remove the wrap or go to the Emergency Department. Patient voices understanding with intent to comply. #1 Right lateral distal leg: caused from too tight leg wraps. Sq debridement per provider. L: 3.0 cm x W: 3.2 cm x D: 0.4 cm #2 Right medial distal leg: Broken ankle 1 yr ago per patient. Healed today #3 left distal calf: Caused from too tight of a compression wrap. L: 1.0 cm x W: 0.8 cm x D: 0.1 cm, not debrided Measurements: Right Calf: 39 cm Right Ankle: 28 cm Left Calf: 38 cm Left Ankle: 24.5 cm PLAN: Home care to visit 3 x weekly PVR's and Venous doppler to be scheduled JUN Rx: Zinc and Doxycycline Copy of wound care instructions faxed to [facility] as patient's request. [phone] EDUCATION: The patient/family was instructed how to wash the wound(s) with dial soap, rinsing with water, AND patting dry. Visual demonstration on how to apply the dressing. Signs AND symptoms of infection were reviewed: Increased redness, swelling, pain, green, yellow drainage, fever or chills all would need to be evaluated by a Physician. Patient received typed homegoing wound care instructions and has expressed intent to comply. Encounter Status:Closed by LUIS SIMONS on 11/07/17 PROGRESS Observed: 10/28/2017 Status: COMPLETED Source: [facility] 2:30 PM CLINIC OTHER CAMPUS REPOSITORY O ID: [id number] Author: Luis Lyles (Tray Room Worker) LOI Simons Service: (none) Author Type: Nurse Practitioner Type: Progress Notes Filed: 11/29/2017 2:45 PM Note Text: DATE OF VISIT: 10/28/2017 REASON FOR VISIT: Non-healing lower extremity wound. HISTORY OF PRESENT ILLNESS: Rosa Beltran is a 81 year old female who presents to the [facility] for further evaluation and management of a non-healing leg wound. She has a past medical history significant for atrial fibrillation on Coumadin, coronary artery disease,?COPD, hypertension, dyslipidemia and CHF.?Patient has felt mildly short of breath over the past month. ?Increase with exertion and lying flat. She is on 40 mg of Lasix twice a day. She still is urinating appropriately. She has not had any chest pain or palpitations. ?Fever, chills, or sweats. ?No productive cough. ?No wheezing. Upon taking patients vitals, her SPO2 level was from 76% - 85%. Patient stated she had shortness of breath. She was unable to finish her sentences without catching her breath. The tips of her fingers were cyanotic. Patient was sent to the ER for further evaluation. Tiffanie BARBOSA wheeled patient to the ER. INTERVAL HISTORY: Patient was sent tot he ED during her previous visit due to low oxygenation. She is now on 2 L of oxygen at all times. She denies any breathing difficulty at this time. She is an 81 year old white female with a long-standing history of swelling in her lower extremities secondary to lymphedema. Approximately 2 years ago, she sustained a fracture to her right ankle, requiring surgical intervention. The operative site became infected, and required prolonged treatment and eventually a skin graft for complete wound closure. As a result, the patient's ambulatory capacity has been impaired. Furthermore, she is morbidly obese which limits her ambulation. The patient leads a relatively sedentary lifestyle and requires a walker for ambulation. She spends a great part of her day in a sitting position. She sleeps with the head of the bed elevated. Swelling in her lower extremities has been on-going for many years. The patient has undergone a battery of diagnostic tests. A non-invasive lower extremity arterial study in December 2016 reveals normal- ankle brachial indices, bilaterally. Venous doppler examination on 01/14 reveals incompetence of the great saphenous veins, bilaterally. There is also incompetence of the small saphenous veins, bilaterally and the right accessory saphenous vein. At present, she has three wounds, 2 on the right distal leg and the other is on the left posterior calf. The left leg wound has been present for over a year and was managed with silver alginate, NPWT, Santyl, serial sharp wound debridements, compression therapy using Surepress and compression pumps. Patient's wound cultures over the past several months have grown out Enterobacter cloacae, MRSA, coag-staph aureus, and in January grew out Pseudomonas, managed with oral antibiotics. IIn July of this year, she developed a new wound on the right lateral distal leg, then in July, she experience cellulitis of both legs requiring hospitalization. In the last year, she has been followed by Dr. Jaskaran Chance at the [facility] [place] [facility]. It was felt that her home support system was inadequate and that she may not have the resources in her home environment to appropriately care for her needs. In this regard, a geriatric social work professor consultation had been recommended on several occassions, but patient apparently insisted on remaining in her home environment despite that there was thought that is may be less than optimal. The patient is here at the [facility] for a second opinion regarding management of the abovementioned bilateral lower extremity wounds. She offers no other complaints. She denies any fevers, chills, wound-related pain or other related symptoms. 10/21/2017 Patient presents for follow-up. Overall, her lower extremity wounds are progressing favorably. One of the three is now healed. The remaining two show evidence of wound contraction and granulation tissue formation. She offers no new complaints. The edema in her lower extremities is well-controlled. She denies any fever, chills or other related symptoms. 10/28/17 No new complains today. Wounds continue to show improvement. Edema in LEs is well controlled with compression therapy. To date, wounds have been managed with sharp debridement, antibacterial dressing and oral antibiotics and nutritional support. PAST MEDICAL HISTORY Diagnosis Date - Acquired hypothyroidism - Acute respiratory failure with hypoxia (HCC) 09/30/2017 - Atrial fibrillation ([facility]) - CAD (coronary artery disease) Dr. Brenda Awan Hts, Promus element KIMMY LAD 11/20/2012, Stress test 04/2014 inferoapical reversible ischemia,small LVEF 48- 50%, LHC 12/2014 L main-normal, LAD widely patent, Cx diffuse mild luminal irregularities with 80%focal stenosis distal, RCA dominant with minimal luminal irregularities. 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 - Pure hypercholesterolemia - Rheumatoid arthritis ([facility]) 2007 - Sleep apnea - Stented coronary artery 12/29/2016 PAST SURGICAL HISTORY Procedure Laterality Date - CC CORONARY STENT 11/20/2012 K[facility]AD - CC CORONARY STENT 12/20/2014 KIMMY, Cfx - SECTION HX - COLONOSCOPY 06/10/2017 [facility], Nonspecific cecal ulcer - GASTRIC BYPASS HX 1987 - HERNIA REPAIR HX 1988; 1990 - PAST SURGICAL HISTORY OF Right 09/2015 right tibia fracture ORIF - PAST SURGICAL HISTORY OF Right 01/20/2016 Removal of hardware, right tibia - TOTAL KNEE REPLACEMENT Right 2003 [facility] Gen. - TOTAL KNEE REPLACEMENT Left 2004 [facility]. MEDICATIONS ergocalciferol, vitamin D2, (DRISDOL) 50,000 unit capsule Take 1 capsule by mouth once each week. levothyroxine (LEVOXYL) 100 mcg tablet Take 1 tablet by mouth once daily. Take on empty stomach. For Thyroid. gabapentin (NEURONTIN) 300 mg capsule Take 1 capsule by mouth twice daily. metoprolol tartrate, short acting, (LOPRESSOR) 50 mg tablet TAKE ONE TABLET BY MOUTH TWICE DAILY furosemide (LASIX) 40 mg tablet Take 1 tablet by mouth twice daily. COMPOUNDED PRESCRIPTION Calcium Alginate 4x4 Dressing, change daily Dx: Blister left leg with infection S80.822A, L08.9; Lymphedema I89.0. Wound dimensions: 4 x 3 cm acetaminophen (TYLENOL) 500 mg tablet Take 1,000 mg by mouth every 8 hours as needed. aspirin, enteric coated (ASPIRIN, ENTERIC COATED) 81 mg EC tablet Take 81 mg by mouth once daily. warfarin (COUMADIN) 1 mg tablet Take 1 mg by mouth daily as directed. Take 1 tablet (1mg) by mouth once daily. Take with 1 x 3mg tablet to total 4mg by mouth once daily. warfarin (COUMADIN) 3 mg tablet Take 3 mg by mouth daily as directed. Take 1 tablet (3mg) by mouth once daily. Take with 1 x 1mg tablet to total 4mg by mouth once daily. lisinopril (ZESTRIL) 2.5 mg tablet Take 2.5 mg by mouth once daily. omeprazole (PRILOSEC) 20 mg capsule Take 20 mg by mouth once daily. spironolactone (ALDACTONE) 25 mg tablet Take 25 mg by mouth once daily. docusate sodium (COLACE) 100 mg capsule Take 100 mg by mouth once daily as needed. therapeutic multivitamin w/ iron (THERAGRAN-M) 9 mg iron-400 mcg tablet Take 1 tablet by mouth once daily. ALLERGIES No Known Allergies FAMILY HISTORY: Patient's father in his 70s with a history of arthritis. Her mother at the age of 90 with a history of arthritis. SOCIAL HISTORY Patient is a , lives alone, but has a son nearby. She has 6 children. Substance Use Topics - Smoking status: Passive Smoke Exposure - Never Smoker - Smokeless tobacco: Never Used Comment: smoked for 40 years - Alcohol use No REVIEW OF SYSTEM: PAIN ASSESSMENT: Negative for pain, history of chronic pain, or current treatment for a chronic pain condition. GENERAL: No weight loss, malaise or fevers HEENT: Negative for frequent or significant headaches, No changes in hearing or vision, no nose bleeds or other nasal problems NECK: Negative for lumps, goiter, pain and significant neck swelling RESPIRATORY: Negative for cough, hemoptysis, wheezing, positive for shortness of breath CARDIOVASCULAR: Negative for chest pain,palpitations; has chronic leg swelling GI: No nausea, vomiting, or diarrhea : No history of dysuria, frequency or incontinence MUSCULOSKELETAL: Negative for joint pain or swelling, back pain or muscle pain SKIN: As per HPI. Negative for any other lesions, rash, and itching PSYCH: Negative for sleep disturbance, mood disorder and recent psychosocial stressors HEMATOLOGY/LYMPHOLOGY: Negative for prolonged bleeding, bruising easily or swollen nodes ENDOCRINE: Negative for cold or heat intolerance, polyuria, polydipsia and goiter NEURO: No history of headaches, syncope, paralysis, seizures or tremors 10/28/17 1430 BP: 152/88 Pulse: 50 Resp: 22 Temp: 36.5 ?C (97.8 ?F) TempSrc: Oral SpO2: 92% Weight: 88.1 kg (194 lb 4.8 oz) PHYSICAL EXAMINATION: HEENT: PERRLA , sclera non-icteric, EOM intact, mucous membrane moist, pink and w/o lesions Comments: Neck: Supple, no bruit, no masses, trachea midline Comments: Chest: Lungs clear to auscultation, no accessory muscle use for respiration Comments: Heart: Regular rate/rhythm, normal S1,S2, no murmur, rubs or gallops Comments: Abdomen: Soft, non-tender, non-distended, + bowel sounds, no bruit, no organomegaly Comments: Extremity: Dorsalis pedis : Present (Y) Absent Diminished Doppler Posterior Tibialis: Present (Y) Absent Diminished Doppler Capillary Refill: < 3 sec. (Y) > 3 sec. 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 Based upon the findings of this resting non-invasive lower extremity arterial study, arterial perfusion to ankle level appears to be relatively normal bilaterally. Triphasic and biphasic waveforms were noted at ankle level bilaterally. Resting ankle-brachial indices were bilaterally normal. 08/01/17 X-Ray 3-View Right Ankle Impression: There is prior open reduction internal fixation of the fibula which appears to be relatively intact allowing for advanced bony osteopenia. There is an irregular appearance of the lateral side distal tibia which is compatible with a prior fracture for which a new fracture on the lateral side is not excluded. The fracture could be potentially be associated with new trauma or potentially infection. Recommend consideration for follow-up study such as MRI or potentially three-phase bone scan. Flattened appearance of the arch of the foot with degenerative change of the tarsotarsal joints. Diffuse soft tissue swelling. Electronically Signed: Kelly Camarena MD at 20:15 EDT Tel , Service support , ? 10/14/17 Hemoglobin A1C = 5.8 ?? 10/14/17 WBC 8.4, Hgb 12.2, Hct 38.5, PLT 211, Glu 91, BUN 24, Cr 0.88, Na 136, K 4.7, Cl 100, Albumin 3.6, Total protein 9.1 ? 10/14/17 XR 2 View Tib/Fib (Left) Findings: Left tibia-fibula: Tibial component of the joint prosthesis noted without associated abnormal lucency. No acute fracture or bony destruction. Right tibia and fibula: Plate and screw fixation remote distal fibular fracture. There is also remote tibial fracture with residual posterior angulation. Ghost tracks from previous tibial hardware. Tibial component of the joint prosthesis noted without associated abnormal lucency. No acute fracture or bony destruction. ? Stereotype Finisher: DWIGHT ? Transcribe Date/Time: Oct 14 2017 ?4:02P Dictated by : ZURDO SANTOS MD ? 10/14/17 XR 2 View Tib/Fib (Right) Findings: Left tibia-fibula: Tibial component of the joint prosthesis noted without associated abnormal lucency. No acute fracture or bony destruction. Right tibia and fibula: Plate and screw fixation remote distal fibular fracture. There is also remote tibial fracture with residual posterior angulation. Ghost tracks from previous tibial hardware. Tibial component of the joint prosthesis noted without associated abnormal lucency. No acute fracture or bony destruction. ? Stereotype Finisher: DWIGHT ? Transcribe Date/Time: Oct 14 2017 ?4:02P Dictated by : ZURDO SANTOS MD ? 10/14/17 XR 2 View Tib/Fib (Left) Findings: Left tibia-fibula: Tibial component of the joint prosthesis noted without associated abnormal lucency. No acute fracture or bony destruction. Right tibia and fibula: Plate and screw fixation remote distal fibular fracture. There is also remote tibial fracture with residual posterior angulation. Ghost tracks from previous tibial hardware. Tibial component of the joint prosthesis noted without associated abnormal lucency. No acute fracture or bony destruction. WOUND ASSESSMENT: Wound Number: 1 First Assessed Date: 10/14/17 Pre-existing: YES Location: Leg Orientation: Right, Lateral and Distal Wound Etiology: Venous Depth of Tissue Injury (Non-pressure): Full Thickness Diabetic Wounds:N/A Pressure Injury: N/A Pre-Measurements Initial (First Visit): 3.5 cm length x 4.0 cm width x 0.5 cm depth Post Measurement (Current): 3.3 cm length x 4.0 cm width x 0.5 cm depth % Healing Rate/#Weeks: 5.7% -- Week 3 Wound Bed (Post-debridement): 100% red % of Healthy tissue: Undermining: No Tunneling: No Tendon/bone exposed: NO Wound Edge/Margins: Irregular wound edges and Edge attached to base Periwound Tissue: Mild erythema, Wet (macerated), and Edema Exudate Amount:Moderate Consistency:Serous Odor:Minimal Infection/Critical Colonization Localized s/s: Non-healing and Increased exudate Systemic s/s: None Local/systemic Rx: None Wound Healing Status: Chronic Clinically presenting as: Stalled wound healing Current topical treatment: Iodoflex Wound Number: 2 First Assessed Date: 10/14/17 Pre-existing: YES Location: Leg Orientation: Right, Medial and Distal Wound Etiology: Surgical Depth of Tissue Injury (Non-pressure): Partial Thickness Diabetic Wounds:N/A Pressure Injury: N/A Pre-Measurements Initial (First Visit): 0.5 cm length x 0.4 cm width x 0.1 cm depth Post Measurement (Current): Epithelialized % Healing Rate/#Weeks: Week 1 -- Healed Wound Bed (Post-debridement): % of Healthy tissue: Undermining: No Tunneling: No Tendon/bone exposed: NO Wound Edge/Margins: Normal, intact, Irregular wound edges and Edge attached to base Periwound Tissue: Normal, intact,uninvolved tissue and Dry,flaky Exudate Amount: None Consistency: None Odor:None Infection/Critical Colonization Localized s/s: None and Edema Systemic s/s: None Local/systemic Rx: None Wound Healing Status: Chronic Clinically presenting as: Healed Current topical treatment: Iodoflex Wound Number: 3 First Assessed Date: Pre-existing: YES Location: Leg (calf) Orientation: Left and Posterior Wound Etiology: Venous Depth of Tissue Injury (Non-pressure): Full Thickness Diabetic Wounds:N/A Pressure Injury: N/A Pre-Measurements Initial (First Visit): 1.3 cm length x 1.2 cm width x 0.1 cm depth Post Measurement (Current): 1.5 cm length x 1.3 cm width x 0.15 cm depth % Healing Rate/#Weeks: -1.9% -- Week 2 Wound Bed (Post-debridement): 100% red % of Healthy tissue: Undermining: No Tunneling: No Tendon/bone exposed: NO Wound Edge/Margins: Well-defined wound edges and Edge attached to base Periwound Tissue: Mild circumferential erythema, No fluctuance, induration or advancing soft tissue necrosis or ischemia Exudate Amount:Scant/Minimal Consistency:Serous Odor:None Infection/Critical Colonization Localized s/s: Non-healing and Edema Systemic s/s: None Local/systemic Rx: None Wound Healing Status: Chronic Clinically presenting as: Stalled wound healing Current topical treatment: Dry gauze pad IMPRESSION: 1. Non-healing right and left lower extremity wounds ( #1 and #3) in the setting of chronic venous insufficiency with secondary lymphedema. 2. Recurrent right medial leg wound s/p STSG in the setting of chronic edema. 3. Significant lower extremity edema secondary to underlying chronic venous insufficiency with secondary lymphedema. 4. Multiple risk factors or co-morbidities that may contribute to wound healing difficulties include hypothyroid disease, chronic atrial fibrillation on anticoagulation, coronary artery disease, COPD, dyslipidemia, hypertension, muscle weakness, osteoarthritis, GERD, depression and obesity. 5. Wound cultures positive for Enterobacter cloacae and Staph aureus most likely increased colonization. 6. Very good glucose control based on recent HgbA1c. 7. Zinc insufficiency ( precursor for collagen synthesis. TREATMENT PLAN: Debridement Type: Autolytic Enzymatic Mechanical Surgical Sharp (Y) Other: ?? Sharp debridement is performed to freshen up the wound and stimulate the healing cascade. It allows the wound to progress from the inflammatory to the proliferative phase of wound healing. Wound Dressing: See Nursing Notes for details. . Topical Rx: Wound each flushed with 10 cc of saline solution. Vitamin AANDD ointment liberally applied to both lower legs. Calcium alginate was applied to both wounds. Sites were covered with abd pads and a profore lite compression wrap. Profore Multiple layer Application: A 3- layer system applied to the bilateral lower extremities. A layer of cast padding, crepe bandage, light compression bandage, followed with a layer of coban and stockinet from behind the toes to 1 below the knee. Toes were warm and pink before and post application. + dorsal pedis pulse on palpation. It was demonstrated to the patient how to check for adequate circulation. If the patient exhibits a change in color to the extremity: change in temperature, increased pain, or the compression wrap becomes wet or to tight, the patient has been instructed to remove the wrap or go to the Emergency Department. Patient voices understanding with intent to comply. Systemic Rx: Continue Doxycycline 100 mg by mouth twice daily x 14 days and zinc 220 mg by mouth daily x 14 days until gone. Nutritional Support: MVI, Zinc Supplement and Protein Supplement Patient is instructed to continue a healthy, well-balanced diet for nutritional support for optimal healing. Protein is the most important nutrient for wound healing. Eating adequate amounts of protein allows the body to create new cells and chemicals to heal the wound, and increases the body?s ability to fight infection. Eating high protein foods daily is recommended such as: lean meats, fish, poultry, cheese, milk, yogurt, eggs and legumes. Vitamins and minerals provide a full range of nutrients for wound healing. It can help jump start the body's production of cells and chemicals needed for healing. Vitamins and minerals can be obtained through healthy foods in your diet and by taking a multiple vitamin supplement. Vitamin C is essential for collagen synthesis. Collagen and fibroblasts compose the basis for the structure of a new wound bed. Also, a deficiency of Vitamin C prolongs the healing time and contributes to reduced resistance to infection. Laboratory: We will obtain wound cultures to determine bacterial load. Results positive for few Enterobacter cloacae complex and many Staph aureus. No anaerobic organisms or fungal elements. Wound cultures are collected to assess level of bacterial bio-burden. Excessive bio-burden can result in inflammatory and proliferative phase stagnation as well as compromise of normal wound healing physiology. Bacterial proliferation, biofilm production, critical colonization and the development of resistant organism can lead to wound infection, wound deterioration and devastating tissue loss. Knowing the organism that populated the wound can help direct therapy, particularly anti-microbial dressing choices. Vascular Evaluation: We will order PVRs for both lower extremities to evaluate for arterial insufficiency to see if poor circulation is an issue regarding her slow healing. Follow-up is scheduled in 1 week, sooner with any concerns or worsening symptoms. Luis Simons CNP Charge Capture: [id number] PROCEDURE Observed: 10/28/2017 Status: COMPLETED Source: [facility] 2:30 PM [facility] OTHER CAMPUS REPOSITORY O ID: [id number] Author: Luis Rodriguez) LOI Simons Service: (none) Author Type: Nurse Practitioner Type: Procedures Filed: 11/29/2017 12:39 PM Note Text: A procedural pause was conducted immediately prior to starting the wound debridement to verify correct patient identity using two patient identifiers: the correct site and correct procedure. Permission from the patient to perform the procedure was obtained. After providing local analgesia with Lidocaine 2% gel, a full-thickness excisional debridement of wounds #1AND #3 was performed and carried through the skin and subcutaneous tissue, using a sterile #15 blade, iris scissors, and forceps to remove the non-viable or devitalized tissue. The debridement extended into the viable wound margin/s to promote a healthy, active wound edge to support healing. The patient tolerated the procedure well without complications. Hemostasis was achieved with direct pressure. The wound/s was/were then copiously irrigated with sterile normal saline and dressings were applied. PROTIME Collected: 10/28/2017 Status: F Source: VICTOR 2:05 PM [facility] REPOSITORY TYPE CODE TESTS RESULT OUT OF RANGE REFERENCE UNITS LAB PSEC 9.7-13.0 sec High PT Sec 27.5 LAB INR 0.9-1.3 High PT INR 2.8 Result Comment: Vitamin K Antagonist (VKA) Therapeutic Range: INR 2 to 3 (Target INR of 2.5) Note: For patients treated with VKA drugs, such as warfarin, the [employer] 2012 Guideline recommends a therapeutic INR range of 2 to 3 (target INR of 2.5). This recommendation includes high-risk patients with antiphospholipid syndrome with previous arterial or venous thromboembolism, current-generation mechanical or bioprosthetic aortic heart valve replacement. Note: Patients with mechanical aortic valve replacement and additional risk factors for thromboembolic events (atrial fibrillation, previous thromboembolism, LV dysfunction, hypercoagulable conditions) or an older generation mechanical AVR (i.e., ball in-Cage) or any mechanical MVR should have a INR therapeutic range of 2.5 to 3.5 (target INR of 3). Guillermott GH, et al. Chest 2012, 141:7S-47S Genevieve RA, et al. [facility] 2017, 70: 252-289 Performed By: #### PT #### [facility] [address] [address] PROGRESS Observed: 10/21/2017 Status: COMPLETED Source: VICTOR 1:00 PM [facility] REPOSITORY HNO ID: [id number] Author: Luis Rodriguez) LOI Simons Service: (none) Author Type: Nurse Practitioner Type: Progress Notes Filed: 11/01/2017 8:41 AM Note Text: DATE OF CONSULTATION: 10/21/2017 REQUESTING PHYSICIAN: Mani Newman MD CONSULTING PROVIDER: Luis Simons CNP REASON FOR CONSULTATION: Non-healing lower extremity wound. HISTORY OF PRESENT ILLNESS: Rosa Beltran is a 81 year old female who presents to the [facility] for further evaluation and management of a non-healing leg wound. She has a past medical history significant for atrial fibrillation on Coumadin, coronary artery disease,?COPD, hypertension, dyslipidemia and CHF.?Patient has felt mildly short of breath over the past month. ?Increase with exertion and lying flat. She is on 40 mg of Lasix twice a day. She still is urinating appropriately. She has not had any chest pain or palpitations. ?Fever, chills, or sweats. ?No productive cough. ?No wheezing. Upon taking patients vitals, her SPO2 level was from 76% - 85%. Patient stated she had shortness of breath. She was unable to finish her sentences without catching her breath. The tips of her fingers were cyanotic. Patient was sent to the ER for further evaluation. Tiffanie BARBOSA wheeled patient to the ER. PAST MEDICAL HISTORY Diagnosis Date - Acquired hypothyroidism - Acute respiratory failure with hypoxia (HCC) 09/30/2017 - Atrial fibrillation ([facility]) - CAD (coronary artery disease) Dr. Brenda Awan Hts, Promus element KIMMY LAD 11/20/2012, Stress test 04/2014 inferoapical reversible ischemia,small LVEF 48- 50%, LHC 12/2014 L main-normal, LAD widely patent, Cx diffuse mild luminal irregularities with 80%focal stenosis distal, RCA dominant with minimal luminal irregularities. 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 - Pure hypercholesterolemia - Rheumatoid arthritis ([facility]) 2007 - Sleep apnea - Stented coronary artery 12/29/2016 PAST SURGICAL HISTORY Procedure Laterality Date - CC CORONARY STENT 11/20/2012 KIMMY LAD - CC CORONARY STENT 12/20/2014 KIMMY, Cfx - SECTION HX - COLONOSCOPY 06/10/2017 [facility], Nonspecific cecal ulcer - GASTRIC BYPASS HX 1987 - HERNIA REPAIR HX 1988; 1990 - PAST SURGICAL HISTORY OF Right 09/2015 right tibia fracture ORIF - PAST SURGICAL HISTORY OF Right 01/20/2016 Removal of hardware, right tibia - TOTAL KNEE REPLACEMENT Right 2003 [facility] Gen. - TOTAL KNEE REPLACEMENT Left 2004 [facility] Gen. MEDICATIONS ergocalciferol, vitamin D2, (DRISDOL) 50,000 unit capsule Take 1 capsule by mouth once each week. levothyroxine (LEVOXYL) 100 mcg tablet Take 1 tablet by mouth once daily. Take on empty stomach. For Thyroid. gabapentin (NEURONTIN) 300 mg capsule Take 1 capsule by mouth twice daily. metoprolol tartrate, short acting, (LOPRESSOR) 50 mg tablet TAKE ONE TABLET BY MOUTH TWICE DAILY furosemide (LASIX) 40 mg tablet Take 1 tablet by mouth twice daily. COMPOUNDED PRESCRIPTION Calcium Alginate 4x4 Dressing, change daily Dx: Blister left leg with infection S80.822A, L08.9; Lymphedema I89.0. Wound dimensions: 4 x 3 cm acetaminophen (TYLENOL) 500 mg tablet Take 1,000 mg by mouth every 8 hours as needed. aspirin, enteric coated (ASPIRIN, ENTERIC COATED) 81 mg EC tablet Take 81 mg by mouth once daily. warfarin (COUMADIN) 1 mg tablet Take 1 mg by mouth daily as directed. Take 1 tablet (1mg) by mouth once daily. Take with 1 x 3mg tablet to total 4mg by mouth once daily. warfarin (COUMADIN) 3 mg tablet Take 3 mg by mouth daily as directed. Take 1 tablet (3mg) by mouth once daily. Take with 1 x 1mg tablet to total 4mg by mouth once daily. lisinopril (ZESTRIL) 2.5 mg tablet Take 2.5 mg by mouth once daily. omeprazole (PRILOSEC) 20 mg capsule Take 20 mg by mouth once daily. spironolactone (ALDACTONE) 25 mg tablet Take 25 mg by mouth once daily. docusate sodium (COLACE) 100 mg capsule Take 100 mg by mouth once daily as needed. therapeutic multivitamin w/ iron (THERAGRAN-M) 9 mg iron-400 mcg tablet Take 1 tablet by mouth once daily. ALLERGIES No Known Allergies ezekiel history on file. FAMILY HISTORY: Significant for diabetes mellitus (mother) SOCIALHISTORY Substance Use Topics - Smoking status: Passive Smoke Exposure - Never Smoker - Smokeless tobacco: Never Used Comment: smoked for 40 years - Alcohol use No REVIEW OF SYSTEM: PAIN ASSESSMENT: Negative for pain, history of chronic pain, or current treatment for a chronic pain condition. GENERAL: No weight loss, malaise or fevers HEENT: Negative for frequent or significant headaches, No changes in hearing or vision, no nose bleeds or other nasal problems NECK: Negative for lumps, goiter, pain and significant neck swelling RESPIRATORY: Negative for cough, hemoptysis, wheezing, positive for shortness of breath CARDIOVASCULAR: Negative for chest pain,palpitations; has chronic leg swelling GI: No nausea, vomiting, or diarrhea : No history of dysuria, frequency or incontinence MUSCULOSKELETAL: Negative for joint pain or swelling, back pain or muscle pain SKIN: As per HPI. Negative for any other lesions, rash, and itching PSYCH: Negative for sleep disturbance, mood disorder and recent psychosocial stressors HEMATOLOGY/LYMPHOLOGY: Negative for prolonged bleeding, bruising easily or swollen nodes ENDOCRINE: Negative for cold or heat intolerance, polyuria, polydipsia and goiter NEURO: No history of headaches, syncope, paralysis, seizures or tremors 10/21/17 1308 BP: 155/75 Pulse: (!) 59 Resp: 19 Temp: 36.6 ?C (97.9 ?F) TempSrc: Oral SpO2: 92% PHYSICAL EXAMINATION: HEENT: PERRLA , sclera non-icteric, EOM intact, mucous membrane moist, pink and w/o lesions Comments: Neck: Supple, no bruit, no masses, trachea midline Comments: Chest: Lungs clear to auscultation, no accessory muscle use for respiration Comments: Heart: Regular rate/rhythm, normal S1,S2, no murmur, rubs or gallops Comments: Abdomen: Soft, non-tender, non-distended, + bowel sounds, no bruit, no organomegaly Comments: Extremity: Dorsalis pedis : Present (Y) Absent Diminished Doppler Posterior Tibialis: Present (Y) Absent Diminished Doppler Capillary Refill: < 3 sec. (Y) > 3 sec. 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 WBC , Hgb , Hct , PLT , Glu , BUN , Cr , Na , K , Cl , Albumin , Total protein WOUND ASSESSMENT: Deferred IMPRESSION: 1. Chronic venous stasis ulcer bilateral lower extremities PLAN: Wound each flushed with 10 cc of saline solution. Vitamin AANDD ointment liberally applied to both lower legs. Calcium alginate was applied to both wounds. Sites were covered with abd pads and a profore lite compression wrap. Profore Multiple layer Application: A 3- layer system applied to the bilateral lower extremities. A layer of cast padding, crepe bandage, light compression bandage, followed with a layer of coban and stockinet from behind the toes to 1 below the knee. Toes were warm and pink before and post application. + dorsal pedis pulse on palpation. It was demonstrated to the patient how to check for adequate circulation. If the patient exhibits a change in color to the extremity: change in temperature, increased pain, or the compression wrap becomes wet or to tight, the patient has been instructed to remove the wrap or go to the Emergency Department. Patient voices understanding with intent to comply. #1 Right lateral distal leg: caused from too tight leg wraps. Foul odor noted on exam. Sq debridement per provider. L: 3.3 cm x W: 4.0 cm x D: 0.6 cm #2 Right medial distal leg: Broken ankle 1 yr ago per patient. Healed today #3 left distal calf: Caused from too tight of a compression wrap. L: 1.5 cm x W: 1.3 cm x D: 0.15 cm, not debrided Measurements: Right Calf: 39.5 cm Right Ankle: 25.5 cm Left Calf: 36.0 cm Left Ankle: 26 cm PLAN: Home care to visit 3 x weekly PVR's and Venous doppler to be scheduled JUN Rx: Zinc and Doxycycline Copy of wound care instructions faxed to [facility] as patient's request. [phone] Luis Simons CNP CHARGE CAPTURE: [id number] . CNOV Observed: 10/21/2017 Status: COMPLETED Source: VICTOR 1:00 PM [facility] OTHER [facility]US REPOSITORY Office Visit ([facility]) ROSA BELTRAN ([id number]) 1935 F Date Time Provider Department 10/21/17 1:00 PM LUIS SIMONS (LOI) [facility] During your visit today, we recorded the following information about you: Temperature Pulse Respiration Blood pressure 97.9 degrees 59/minute 19/minute 155/75 Luis Simons CNP, LOI 11/29/2017 12:27 PM Addendum DATE OF VISIT: 10/21/2017 REASON FOR VISIT: Non-healing lower extremity wound. HISTORY OF PRESENT ILLNESS: Rosa Beltran is a 81 year old female who presents to the [facility] for further evaluation and management of a non-healing leg wound. She has a past medical history significant for atrial fibrillation on Coumadin, coronary artery disease,?COPD, hypertension, dyslipidemia and CHF.?Patient has felt mildly short of breath over the past month. ?Increase with exertion and lying flat. She is on 40 mg of Lasix twice a day. She still is urinating appropriately. She has not had any chest pain or palpitations. ?Fever, chills, or sweats. ?No productive cough. ?No wheezing. Upon taking patients vitals, her SPO2 level was from 76% - 85%. Patient stated she had shortness of breath. She was unable to finish her sentences without catching her breath. The tips of her fingers were cyanotic. Patient was sent to the ER for further evaluation. Tiffanie BARBOSA wheeled patient to the ER. INTERVAL HISTORY: Patient was sent tot he ED during her previous visit due to low oxygenation. She is now on 2 L of oxygen at all times. She denies any breathing difficulty at this time. She is an 81 year old white female with a long-standing history of swelling in her lower extremities secondary to lymphedema. Approximately 2 years ago, she sustained a fracture to her right ankle, requiring surgical intervention. The operative site became infected, and required prolonged treatment and eventually a skin graft for complete wound closure. As a result, the patient's ambulatory capacity has been impaired. Furthermore, she is morbidly obese which limits her ambulation. The patient leads a relatively sedentary lifestyle and requires a walker for ambulation. She spends a great part of her day in a sitting position. She sleeps with the head of the bed elevated. Swelling in her lower extremities has been on-going for many years. The patient has undergone a battery of diagnostic tests. A non-invasive lower extremity arterial study in December 2016 reveals normal-ankle brachial indices, bilaterally. Venous doppler examination on 01/14 reveals incompetence of the great saphenous veins, bilaterally. There is also incompetence of the small saphenous veins, bilaterally and the right accessory saphenous vein. At present, she has three wounds, 2 on the right distal leg and the other is on the left posterior calf. The left leg wound has been present for over a year and was managed with silver alginate, NPWT, Santyl, serial sharp wound debridements, compression therapy using Surepress and compression pumps. Patient's wound cultures over the past several months have grown out Enterobacter cloacae, MRSA, coag-staph aureus, and in January grew out Pseudomonas, managed with oral antibiotics. IIn July of this year, she developed a new wound on the right lateral distal leg, then in July, she experience cellulitis of both legs requiring hospitalization. In the last year, she has been followed by Dr. Jaskaran Chance at the [facility]. It was felt that her home support system was inadequate and that she may not have the resources in her home environment to appropriately care for her needs. In this regard, a geriatric social work professor consultation had been recommended on several occassions, but patient apparently insisted on remaining in her home environment despite that there was thought that is may be less than optimal. The patient is here at the [facility] for a second opinion regarding management of the abovementioned bilateral lower extremity wounds. She offers no other complaints. She denies any fevers, chills, wound-related pain or other related symptoms. 10/21/2017 Patient presents for follow-up. Overall, her lower extremity wounds are progressing favorably. One of the three is now healed. The remaining two show evidence of wound contraction and granulation tissue formation. She offers no new complaints. The edema in her lower extremities is well- controlled. She denies any fever, chills or other related symptoms. PAST MEDICAL HISTORY Diagnosis Date - Acquired hypothyroidism - Acute respiratory failure with hypoxia (HCC) 09/30/2017 - Atrial fibrillation (HCC) - CAD (coronary artery disease) Dr. Brenda Awan Hts, Promus element KIMMY LAD 11/20/2012, Stress test 04/2014 inferoapical reversible ischemia,small LVEF 48-50%, LHC 12/2014 L main-normal, LAD widely patent, Cx diffuse mild luminal irregularities with 80%focal stenosis distal, RCA dominant with minimal luminal irregularities. 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 - Pure hypercholesterolemia - Rheumatoid arthritis ([facility]) 2007 - Sleep apnea - Stented coronary artery 12/29/2016 PAST SURGICAL HISTORY Procedure Laterality Date - CC CORONARY STENT 11/20/2012 KIMMY LAD - CC CORONARY STENT 12/20/2014 KIMMY, Cfx - SE[facility]ons[facility] c[facility] - GASTRIC BYPASS HX 1986 - HERNIA REPAIR HX 1987; 1989 - PAST SURGICAL HISTORY OF Right 09/2015 right tibia fracture ORIF - PAST SURGICAL HISTORY OF Right 01/20/2016 Removal of hardware, right tibia - TOTAL KNEE REPLACEMENT Right 2003 [facility] Gen. - TOTAL KNEE REPLACEMENT Left 2004 [facility] Gen. MEDICATIONS ergocalciferol, vitamin D2, (DRISDOL) 50,000 unit capsule Take 1 capsule by mouth once each week. levothyroxine (LEVOXYL) 100 mcg tablet Take 1 tablet by mouth once daily. Take on empty stomach. For Thyroid. gabapentin (NEURONTIN) 300 mg capsule Take 1 capsule by mouth twice daily. metoprolol tartrate, short acting, (LOPRESSOR) 50 mg tablet TAKE ONE TABLET BY MOUTH TWICE DAILY furosemide (LASIX) 40 mg tablet Take 1 tablet by mouth twice daily. COMPOUNDED PRESCRIPTION Calcium Alginate 4x4 Dressing, change daily Dx: Blister left leg with infection S80.822A, L08.9; Lymphedema I89.0. Wound dimensions: 4 x 3 cm acetaminophen (TYLENOL) 500 mg tablet Take 1,000 mg by mouth every 8 hours as needed. aspirin, enteric coated (ASPIRIN, ENTERIC COATED) 81 mg EC tablet Take 81 mg by mouth once daily. warfarin (COUMADIN) 1 mg tablet Take 1 mg by mouth daily as directed. Take 1 tablet (1mg) by mouth once daily. Take with 1 x 3mg tablet to total 4mg by mouth once daily. warfarin (COUMADIN) 3 mg tablet Take 3 mg by mouth daily as directed. Take 1 tablet (3mg) by mouth once daily. Take with 1 x 1mg tablet to total 4mg by mouth once daily. lisinopril (ZESTRIL) 2.5 mg tablet Take 2.5 mg by mouth once daily. omeprazole (PRILOSEC) 20 mg capsule Take 20 mg by mouth once daily. spironolactone (ALDACTONE) 25 mg tablet Take 25 mg by mouth once daily. docusate sodium (COLACE) 100 mg capsule Take 100 mg by mouth once daily as needed. therapeutic multivitamin w/ iron (THERAGRAN-M) 9 mg iron-400 mcg tablet Take 1 tablet by mouth once daily. ALLERGIES No Known Allergies FAMILY HISTORY: Patient's father in his 70s with a history of arthritis. Her mother at the age of 90 with a history of arthritis. SOCIAL HISTORY Patient is a , lives alone, but has a son nearby. She has 6 children. Substance Use Topics - Smoking status: Passive Smoke Exposure - Never Smoker - Smokeless tobacco: Never Used Comment: smoked for 40 years - Alcohol use No REVIEW OF SYSTEM: PAIN ASSESSMENT: Negative for pain, history of chronic pain, or current treatment for a chronic pain condition. GENERAL: No weight loss, malaise or fevers HEENT: Negative for frequent or significant headaches, No changes in hearing or vision, no nose bleeds or other nasal problems NECK: Negative for lumps, goiter, pain and significant neck swelling RESPIRATORY: Negative for cough, hemoptysis, wheezing, positive for shortness of breath CARDIOVASCULAR: Negative for chest pain,palpitations; has chronic leg swelling GI: No nausea, vomiting, or diarrhea : No history of dysuria, frequency or incontinence MUSCULOSKELETAL: Negative for joint pain or swelling, back pain or muscle pain SKIN: As per HPI. Negative for any other lesions, rash, and itching PSYCH: Negative for sleep disturbance, mood disorder and recent psychosocial stressors HEMATOLOGY/LYMPHOLOGY: Negative for prolonged bleeding, bruising easily or swollen nodes ENDOCRINE: Negative for cold or heat intolerance, polyuria, polydipsia and goiter NEURO: No history of headaches, syncope, paralysis, seizures or tremors 10/21/17 1300 BP: 155/75 Pulse: 59 Resp: 19 Temp: 36.6 ?C (97.8 ?F) TempSrc: Oral SpO2: 92% Weight: 88.1 kg (194 lb 4.8 oz) PHYSICAL EXAMINATION: HEENT: PERRLA , sclera non-icteric, EOM intact, mucous membrane moist, pink and w/o lesions Comments: Neck: Supple, no bruit, no masses, trachea midline Comments: Chest: Lungs clear to auscultation, no accessory muscle use for respiration Comments: Heart: Regular rate/rhythm, normal S1,S2, no murmur, rubs or gallops Comments: Abdomen: Soft, non-tender, non-distended, + bowel sounds, no bruit, no organomegaly Comments: Extremity: Dorsalis pedis : Present (Y) Absent Diminished Doppler Posterior Tibialis: Present (Y) Absent Diminished Doppler Capillary Refill: ANDlt; 3 sec. (Y) ANDgt; 3 sec. 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 Based upon the findings of this resting non-invasive lower extremity arterial study, arterial perfusion to ankle level appears to be relatively normal bilaterally. Triphasic and biphasic waveforms were noted at ankle level bilaterally. Resting ankle- brachial indices were bilaterally normal. 08/01/17 X-Ray 3-View Right Ankle Impression: There is prior open reduction internal fixation of the fibula which appears to be relatively intact allowing for advanced bony osteopenia. There is an irregular appearance of the lateral side distal tibia which is compatible with a prior fracture for which a new fracture on the lateral side is not excluded. The fracture could be potentially be associated with new trauma or potentially infection. Recommend consideration for follow- up study such as MRI or potentially three-phase bone scan. Flattened appearance of the arch of the foot with degenerative change of the tarsotarsal joints. Diffuse soft tissue swelling. Electronically Signed: Kelly Camarena MD at 20:15 EDT Tel , Service support , ? 10/14/17 Hemoglobin A1C = 5.8 ?? 10/14/17 WBC 8.4, Hgb 12.2, Hct 38.5, PLT 211, Glu 91, BUN 24, Cr 0.88, Na 136, K 4.7, Cl 100, Albumin 3.6, Total protein 9.1 ? 10/14/17 XR 2 View Tib/Fib (Left) Findings: Left tibia-fibula: Tibial component of the joint prosthesis noted without associated abnormal lucency. No acute fracture or bony destruction. Right tibia and fibula: Plate and screw fixation remote distal fibular fracture. There is also remote tibial fracture with residual posterior angulation. Ghost tracks from previous tibial hardware. Tibial component of the joint prosthesis noted without associated abnormal lucency. No acute fracture or bony destruction. ? Stereotype Finisher: DWIGHT ? Transcribe Date/Time: Oct 14 2017 ?4:02P Dictated by : ZURDO SANTOS MD ? 10/14/17 XR 2 View Tib/Fib (Right) Findings: Left tibia-fibula: Tibial component of the joint prosthesis noted without associated abnormal lucency. No acute fracture or bony destruction. Right tibia and fibula: Plate and screw fixation remote distal fibular fracture. There is also remote tibial fracture with residual posterior angulation. Ghost tracks from previous tibial hardware. Tibial component of the joint prosthesis noted without associated abnormal lucency. No acute fracture or bony destruction. ? Stereotype Finisher: DWIGHT ? Transcribe Date/Time: Oct 14 2017 ?4:02P Dictated by : ZURDO SANTOS MD ? 10/14/17 XR 2 View Tib/Fib (Left) Findings: Left tibia-fibula: Tibial component of the joint prosthesis noted without associated abnormal lucency. No acute fracture or bony destruction. Right tibia and fibula: Plate and screw fixation remote distal fibular fracture. There is also remote tibial fracture with residual posterior angulation. Ghost tracks from previous tibial hardware. Tibial component of the joint prosthesis noted without associated abnormal lucency. No acute fracture or bony destruction. WOUND ASSESSMENT: Wound Number: 1 First Assessed Date: 10/14/17 Pre-existing: YES Location: Leg Orientation: Right, Lateral and Distal Wound Etiology: Venous Depth of Tissue Injury (Non-pressure): Full Thickness Diabetic Wounds:N/A Pressure Injury: N/A Pre-Measurements Initial (First Visit): 3.5 cm length x 4.0 cm width x 0.5 cm depth Post Measurement (Current): 3.3 cm length x 4.0 cm width x 0.5 cm depth % Healing Rate/#Weeks: 5.7% -- Week 1 Wound Bed (Post-debridement): 100% red % of Healthy tissue: Undermining: No Tunneling: No Tendon/bone exposed: NO Wound Edge/Margins: Irregular wound edges and Edge attached to base Periwound Tissue: Mild erythema, Wet (macerated), and Edema Exudate Amount:Moderate Consistency:Serous Odor:Minimal Infection/Critical Colonization Localized s/s: Non-healing and Increased exudate Systemic s/s: None Local/systemic Rx: None Wound Healing Status: Chronic Clinically presenting as: Stalled wound healing Current topical treatment: Iodoflex Wound Number: 2 First Assessed Date: 10/14/17 Pre-existing: YES Location: Leg Orientation: Right, Medial and Distal Wound Etiology: Surgical Depth of Tissue Injury (Non-pressure): Partial Thickness Diabetic Wounds:N/A Pressure Injury: N/A Pre-Measurements Initial (First Visit): 0.5 cm length x 0.4 cm width x 0.1 cm depth Post Measurement (Current): Epithelialized % Healing Rate/#Weeks: Week 1 -- Healed Wound Bed (Post-debridement): % of Healthy tissue: Undermining: No Tunneling: No Tendon/bone exposed: NO Wound Edge/Margins: Normal, intact, Irregular wound edges and Edge attached to base Periwound Tissue: Normal, intact,uninvolved tissue and Dry,flaky Exudate Amount: None Consistency: None Odor:None Infection/Critical Colonization Localized s/s: None and Edema Systemic s/s: None Local/systemic Rx: None Wound Healing Status: Chronic Clinically presenting as: Healed Current topical treatment: Iodoflex Wound Number: 3 First Assessed Date: Pre-existing: YES Location: Leg (calf) Orientation: Left and Posterior Wound Etiology: Venous Depth of Tissue Injury (Non-pressure): Full Thickness Diabetic Wounds:N/A Pressure Injury: N/A Pre-Measurements Initial (First Visit): 1 3 cm length x 1.2 cm width x 0.1 cm depth Post Measurement (Current): 1.5 cm length x 1.3 cm width x 0.15 cm depth % Healing Rate/#Weeks: Wound Bed (Post-debridement): 100% red % of Healthy tissue: Undermining: No Tunneling: No Tendon/bone exposed: NO Wound Edge/Margins: Well-defined wound edges and Edge attached to base Periwound Tissue: Mild circumferential erythema, No fluctuance, induration or advancing soft tissue necrosis or ischemia Exudate Amount:Scant/Minimal Consistency:Serous Odor:None Infection/Critical Colonization Localized s/s: Non-healing and Edema Systemic s/s: None Local/systemic Rx: None Wound Healing Status: Chronic Clinically presenting as: Stalled wound healing Current topical treatment: Dry gauze pad IMPRESSION: 1. Non-healing right and left lower extremity wounds ( #1 and #3) in the setting of chronic venous insufficiency with secondary lymphedema. 2. Recurrent right medial leg wound s/p STSG in the setting of chronic edema. 3. Significant lower extremity edema secondary to underlying chronic venous insufficiency with secondary lymphedema. 4. Multiple risk factors or co-morbidities that may contribute to wound healing difficulties include hypothyroid disease, chronic atrial fibrillation on anticoagulation, coronary artery disease, COPD, dyslipidemia, hypertension, muscle weakness, osteoarthritis, GERD, depression and obesity. 5. Wound cultures positive for Enterobacter cloacae and Staph aureus most likely increased colonization. 6. Very good glucose control based on recent HgbA1c. 7. Zinc insufficiency ( precursor for collagen synthesis. TREATMENT PLAN: Debridement Type: Autolytic Enzymatic Mechanical Surgical Sharp (Y) Other: ?? Sharp debridement is performed to ANDquot;freshen upANDquot; the wound and stimulate the healing cascade. It allows the wound to progress from the inflammatory to the proliferative phase of wound healing. Wound Dressing: See Nursing Notes for details. . Topical Rx: Wound each flushed with 10 cc of saline solution. Vitamin AANDamp;D ointment liberally applied to both lower legs. Calcium alginate was applied to both wounds. Sites were covered with abd pads and a profore lite compression wrap. Profore Multiple layer Application: A 3- layer system applied to the bilateral lower extremities. A layer of cast padding, crepe bandage, light compression bandage, followed with a layer of coban and stockinet from behind the toes to 1ANDquot; below the knee. Toes were warm and pink before and post application. + dorsal pedis pulse on palpation. It was demonstrated to the patient how to check for adequate circulation. If the patient exhibits a change in color to the extremity: change in temperature, increased pain, or the compression wrap becomes wet or to tight, the patient has been instructed to remove the wrap or go to the Emergency Department. Patient voices understanding with intent to comply. Systemic Rx: Start Doxycycline 100 mg by mouth twice daily x 14 days and zinc 220 mg by mouth daily x 14 days. Nutritional Support: MVI, Zinc Supplement and Protein Supplement Patient is instructed to continue a healthy, well-balanced diet for nutritional support for optimal healing. Protein is the most important nutrient for wound healing. Eating adequate amounts of protein allows the body to create new cells and chemicals to heal the wound, and increases the body?s ability to fight infection. Eating high protein foods daily is recommended such as: lean meats, fish, poultry, cheese, milk, yogurt, eggs and legumes. Vitamins and minerals provide a full range of nutrients for wound healing. It can help ANDquot;jump startANDquot; the body's production of cells and chemicals needed for healing. Vitamins and minerals can be obtained through healthy foods in your diet and by taking a multiple vitamin supplement. Vitamin C is essential for collagen synthesis. Collagen and fibroblasts compose the basis for the structure of a new wound bed. Also, a deficiency of Vitamin C prolongs the healing time and contributes to reduced resistance to infection. Laboratory: We will obtain wound cultures to determine bacterial load. Results positive for few Enterobacter cloacae complex and many Staph aureus. No anaerobic organisms or fungal elements. Wound cultures are collected to assess level of bacterial bio-burden. Excessive bio-burden can result in inflammatory and proliferative phase stagnation as well as compromise of normal wound healing physiology. Bacterial proliferation, biofilm production, critical colonization and the development of resistant organism can lead to wound infection, wound deterioration and devastating tissue loss. Knowing the organism that populated the wound can help direct therapy, particularly anti-microbial dressing choices. Vascular Evaluation: We will order PVRs for both lower extremities to evaluate for arterial insufficiency to see if poor circulation is an issue regarding her slow healing. Follow-up is scheduled in 1 week, sooner with any concerns or worsening symptoms. Luis Simons CNP Charge Capture: [id number] Luis Simons CNP, CNP 11/29/2017 12:23 PM Signed A procedural pause was conducted immediately prior to starting the wound debridement to verify correct patient identity using two patient identifiers: the correct site and correct procedure. Permission from the patient to perform the procedure was obtained. After providing local analgesia with Lidocaine 2% gel, a full-thickness excisional debridement of wounds # 1ANDamp;3 was performed and carried through the skin and subcutaneous tissue, using a sterile #15 blade, iris scissors, and forceps to remove the non-viable or devitalized tissue. The debridement extended into the viable wound margin/s to promote a healthy, active wound edge to support healing. The patient tolerated the procedure well without complications. Hemostasis was achieved with direct pressure. The wound/s was/were then copiously irrigated with sterile normal saline and dressings were applied. Peter Jason MA, TORY 10/21/2017 1:23 PM Addendum Nursing Note See provider note for wound description and measurements Dressing removed with dakins Saline 0.9% solution applied to all wounds In the presence and direction of the provider wound care as written below: Patient was sent to the ed during her previous visit due to low oxygenation. Patient in on oxygen 2 liters/NC at all times. Lido gel applied to both wounds prior to debridement. Wound each flushed with 10 cc of saline solution. Vitamin AANDamp;D ointment liberally applied to both lower legs. Calcium alginate was applied to both wounds. Sites were covered with abd pads and a profore lite compression wrap. Profore Multiple layer Application: A 3- layer system applied to the bilateral lower extremities. A layer of cast padding, crepe bandage, light compression bandage, followed with a layer of coban and stockinet from behind the toes to 1ANDquot; below the knee. Toes were warm and pink before and post application. + dorsal pedis pulse on palpation. It was demonstrated to the patient how to check for adequate circulation. If the patient exhibits a change in color to the extremity: change in temperature, increased pain, or the compression wrap becomes wet or to tight, the patient has been instructed to remove the wrap or go to the Emergency Department. Patient voices understanding with intent to comply. #1 Right lateral distal leg: caused from too tight leg wraps. Foul odor noted on exam. Sq debridement per provider. L: 3.3 cm x W: 4.0 cm x D: 0.6 cm #2 Right medial distal leg: Broken ankle 1 yr ago per patient. Healed today #3 left distal calf: Caused from too tight of a compression wrap. L: 1.5 cm x W: 1.3 cm x D: 0.15 cm, not debrided Measurements: Right Calf: 39.5 cm Right Ankle: 25.5 cm Left Calf: 36.0 cm Left Ankle: 26 cm PLAN: Home care to visit 3 x weekly PVR's and Venous doppler to be scheduled JUN Rx: Zinc and Doxycycline Copy of wound care instructions faxed to [facility] as patient's request. [phone] EDUCATION: The patient/family was instructed how to wash the wound(s) with dial soap, rinsing with water, ANDamp; patting dry. Visual demonstration on how to apply the dressing. Signs ANDamp; symptoms of infection were reviewed: Increased redness, swelling, pain, green, yellow drainage, fever or chills all would need to be evaluated by a Physician. Patient received typed homegoing wound care instructions and has expressed intent to comply. Tiffanie Humphrey, RN, RN 10/21/2017 1:26 PM Signed WOUND CARE INSTRUCTIONS Wound location: Right medial distal leg/Right lateral distal leg/Left calf 1. Wash your hands with soap and water before and after wound care. 2. Gather all supplies needed. 3. Wash wound with Dial soap and water. Pat dry. Moisturize with vitamin AANDamp;D 4. Apply calcium alginate ag to the wound base. 5. Cover with 4x4's, abd pad 6. Secure dressing with Profore 3-layer compression wrap 7. Home Care to change your dressing 3 x weekly FOR COMPRESSION WRAPS/TUBIGRIP ? Cast cover may be used to allow you to shower ? Remove compression wraps if they become uncomfortable or cause change in color or sensation to the extremity. Rewrap as instructed. To give your wound the best chance to heal: - Eat three balanced meals daily focusing on the protein - Control swelling by elevating the extremity above your heart - exercise the extremity - Complete your wound care instructions - Vitamin C 500 mg twice daily - Multiple Vitamin Daily - Drink a protein shake daily Report any of the following changes to the Wound Center at [phone] or go to the Emergency Department: ? Fever or chills ? Increased drainage ? Green or yellow drainage ? Foul odor ? Increased pain ? Hardness around the wound ? Redness, warmth or swelling of the surrounding tissue ? 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) [L97.912] Order(s):Zinc Sulfate 220 mg tabTake 1 tablet by mouth once daily for 14 days.Disp: 14 tabletRfl: 0 [] doxycycline monohydrate (MONODOX) 100 mg capsuleTake 1 capsule by mouth twice daily for 14 days.Disp: 28 capsuleRfl: 0 Prescriptions as of 10/21/2017 Sig: ACETAMINOPHEN 500 MG TABLET Take 1,000 mg by mouth every * ASPIRIN 81 MG TABLET,DELAYED * Take 81 mg by mouth once oliver* WARFARIN 1 MG TABLET Take 1 mg by mouth daily as d* WARFARIN 3 MG TABLET Take 3 mg by mouth daily as d* LISINOPRIL 2.5 MG TABLET Take 2.5 mg by mouth once yuly* OMEPRAZOLE 20 MG CAPSULE,LUIS MIGUEL* Take 20 mg by mouth once oliver* SPIRONOLACTONE 25 MG TABLET Take 25 mg by mouth once oliver* DOCUSATE SODIUM 100 MG CAPSULE Take 100 mg by mouth once yuly* MULTIVITAMIN-IRON 9 MG-FOLIC * Take 1 tablet by mouth once d* ERGOCALCIFEROL (VITAMIN D2) 5* Take 1 capsule by mouth once * LEVOTHYROXINE 100 MCG TABLET Take 1 tablet by mouth once d* GABAPENTIN 300 MG CAPSULE Take 1 capsule by mouth twice* METOPROLOL TARTRATE 50 MG TAB* TAKE ONE TABLET BY MOUTH TWIC* FUROSEMIDE 40 MG TABLET Take 1 tablet by mouth twice * COMPOUNDED PRESCRIPTION Calcium Alginate 4x4 Dressing* ZINC SULFATE 220 MG TABLET Take 1 tablet by mouth once d* DOXYCYCLINE MONOHYDRATE 100 M* Take 1 capsule by mouth twice* Problem List As Of Date 10/21/2017 Noted Resolved Gastroesophageal reflux disease without esophag*INVALID FOR* Chronic atrial fibrillation (HCC) [I48.2] INVALID FOR* Priority: B Pure hypercholesterolemia [E78.00] Hypertension [I10] Priority: D More... Acquired hypothyroidism [E03.9] CAD (coronary artery disease) [I25.10] More... Depressive disorder [F32.9] INVALID FOR*07/18/2017 Primary osteoarthritis involving multiple joint*INVALID FOR* Lymphedema of both lower extremities [I89.0] INVALID FOR* Mouth dryness [R68.2] INVALID FOR* Muscular weakness [M62.81] INVALID FOR* Dorsalgia [M54.9] INVALID FOR* Stented coronary artery [Z95.5] INVALID FOR* Priority: A Gastric bypass status for obesity [Z98.84] INVALID FOR* Priority: C Bilateral leg ulcer (HCC) [L97.919, L97.929] INVALID FOR* Priority: E More... Polyneuropathy (HCC) [G62.9] INVALID FOR* Cecal ulcer [K63.3] INVALID FOR* Acute respiratory failure with hypoxia (HCC) [J*INVALID FOR*10/10/2017 Priority: Severe Anticoagulation goal of INR 2 to 3 [Z51.81, Z79*INVALID FOR* Priority: Mild More... ANASARCA/HYPOXIA 09/30/17 ADMISSION SUMMARY [Z9*INVALID FOR* Priority: Very Severe More... Skin bulla [R23.8] INVALID FOR* Priority: Mild More... Respiratory failure with hypoxia (HCC) [J96.91] INVALID FOR* Priority: Severe Heart failure with preserved ejection fraction *INVALID FOR* Priority: A More... Physical debility [R53.81] INVALID FOR* Priority: Moderate More... Requires continuous at home supplemental oxygen*INVALID FOR* More... Other instructions from your clinician: WOUND CARE INSTRUCTIONS Wound location: Right medial distal leg/Right lateral distal leg/Left calf 1. Wash your hands with soap and water before and after wound care. 2. Gather all supplies needed. 3. Wash wound with Dial soap and water. Pat dry. Moisturize with vitamin AANDD 4. Apply calcium alginate ag to the wound base. 5. Cover with 4x4's, abd pad 6. Secure dressing with Profore 3-layer compression wrap 7. Home Care to change your dressing 3 x weekly FOR COMPRESSION WRAPS/TUBIGRIP ? Cast cover may be used to allow you to shower ? Remove compression wraps if they become uncomfortable or cause change in color or sensation to the extremity. Rewrap as instructed. To give your wound the best chance to heal: - Eat three balanced meals daily focusing on the protein - Control swelling by elevating the extremity above your heart - exercise the extremity - Complete your wound care instructions - Vitamin C 500 mg twice daily - Multiple Vitamin Daily - Drink a protein shake daily Report any of the following changes to the Wound Center at [phone] or go to the Emergency Department: ? Fever or chills ? Increased drainage ? Green or yellow drainage ? Foul odor ? Increased pain ? Hardness around the wound ? Redness, warmth or swelling of the surrounding tissue ? Color change to the wound Return to the Wound Center in 1 week to see Marlen Please Schedule PVR's and venous doppler study Rx: Zinc x 2 weeks Luis Simons GROUND SYSTEMS ENGINEER/mjl Visit Notes: >> Peter Martinez) TORY Jason TueOct 21, 2017 1:15 PM Status: Addendum Nursing Note See provider note for wound description and measurements Dressing removed with dakins Saline 0.9% solution applied to all wounds In the presence and direction of the provider wound care as written below: Patient was sent to the ed during her previous visit due to low oxygenation. Patient in on oxygen 2 liters/NC at all times. Lido gel applied to both wounds prior to debridement. Wound each flushed with 10 cc of saline solution. Vitamin AANDD ointment liberally applied to both lower legs. Calcium alginate was applied to both wounds. Sites were covered with abd pads and a profore lite compression wrap. Profore Multiple layer Application: A 3- layer system applied to the bilateral lower extremities. A layer of cast padding, crepe bandage, light compression bandage, followed with a layer of coban and stockinet from behind the toes to 1 below the knee. Toes were warm and pink before and post application. + dorsal pedis pulse on palpation. It was demonstrated to the patient how to check for adequate circulation. If the patient exhibits a change in color to the extremity: change in temperature, increased pain, or the compression wrap becomes wet or to tight, the patient has been instructed to remove the wrap or go to the Emergency Department. Patient voices understanding with intent to comply. #1 Right lateral distal leg: caused from too tight leg wraps. Foul odor noted on exam. Sq debridement per provider. L: 3.3 cm x W: 4.0 cm x D: 0.6 cm #2 Right medial distal leg: Broken ankle 1 yr ago per patient. Healed today #3 left distal calf: Caused from too tight of a compression wrap. L: 1.5 cm x W: 1.3 cm x D: 0.15 cm, not debrided Measurements: Right Calf: 39.5 cm Right Ankle: 25.5 cm Left Calf: 36.0 cm Left Ankle: 26 cm PLAN: Home care to visit 3 x weekly PVR's and Venous doppler to be scheduled JUN Rx: Zinc and Doxycycline Copy of wound care instructions faxed to [facility] as patient's request. [phone] EDUCATION: The patient/family was instructed how to wash the wound(s) with dial soap, rinsing with water, AND patting dry. Visual demonstration on how to apply the dressing. Signs AND symptoms of infection were reviewed: Increased redness, swelling, pain, green, yellow drainage, fever or chills all would need to be evaluated by a Physician. Patient received typed homegoing wound care instructions and has expressed intent to comply. Prescriptions ordered this encounter Disp Refills Start End ZINC SULFATE 220 MG TABLET 14 t* 0 10/21/2017 11/04/2017 Route: ORAL Sig: Take 1 tablet by mouth once daily for 14 days. DOXYCYCLINE MONOHYDRATE 100 MG CAPSU* 28 c* 0 10/21/2017 11/04/2017 Route: ORAL Sig: Take 1 capsule by mouth twice daily for 14 days. Encounter Status:Closed by LUIS SIMONS on 11/01/17 PROGRESS Observed: 10/21/2017 Status: COMPLETED Source: [facility] 1:00 PM CLINIC OTHER CAMPUS REPOSITORY HNO ID: [id number] Author: Luis Lyles (Tray Room Worker) LOI Simons Service: (none) Author Type: Nurse Practitioner Type: Progress Notes Filed: 11/29/2017 12:27 PM Note Text: DATE OF VISIT: 10/21/2017 REASON FOR VISIT: Non-healing lower extremity wound. HISTORY OF PRESENT ILLNESS: Rosa Beltran is a 81 year old female who presents to the [facility] for further evaluation and management of a non-healing leg wound. She has a past medical history significant for atrial fibrillation on Coumadin, coronary artery disease,?COPD, hypertension, dyslipidemia and CHF.?Patient has felt mildly short of breath over the past month. ?Increase with exertion and lying flat. She is on 40 mg of Lasix twice a day. She still is urinating appropriately. She has not had any chest pain or palpitations. ?Fever, chills, or sweats. ?No productive cough. ?No wheezing. Upon taking patients vitals, her SPO2 level was from 76% - 85%. Patient stated she had shortness of breath. She was unable to finish her sentences without catching her breath. The tips of her fingers were cyanotic. Patient was sent to the ER for further evaluation. Tiffanie BARBOSA wheeled patient to the ER. INTERVAL HISTORY: Patient was sent tot he ED during her previous visit due to low oxygenation. She is now on 2 L of oxygen at all times. She denies any breathing difficulty at this time. She is an 81 year old white female with a long-standing history of swelling in her lower extremities secondary to lymphedema. Approximately 2 years ago, she sustained a fracture to her right ankle, requiring surgical intervention. The operative site became infected, and required prolonged treatment and eventually a skin graft for complete wound closure. As a result, the patient's ambulatory capacity has been impaired. Furthermore, she is morbidly obese which limits her ambulation. The patient leads a relatively sedentary lifestyle and requires a walker for ambulation. She spends a great part of her day in a sitting position. She sleeps with the head of the bed elevated. Swelling in her lower extremities has been on-going for many years. The patient has undergone a battery of diagnostic tests. A non-invasive lower extremity arterial study in December 2016 reveals normal- ankle brachial indices, bilaterally. Venous doppler examination on 01/14 reveals incompetence of the great saphenous veins, bilaterally. There is also incompetence of the small saphenous veins, bilaterally and the right accessory saphenous vein. At present, she has three wounds, 2 on the right distal leg and the other is on the left posterior calf. The left leg wound has been present for over a year and was managed with silver alginate, NPWT, Santyl, serial sharp wound debridements, compression therapy using Surepress and compression pumps. Patient's wound cultures over the past several months have grown out Enterobacter cloacae, MRSA, coag-staph aureus, and in January grew out Pseudomonas, managed with oral antibiotics. IIn July of this year, she developed a new wound on the right lateral distal leg, then in July, she experience cellulitis of both legs requiring hospitalization. In the last year, she has been followed by Dr. Jaskaran Chance at the [facility]. It was felt that her home support system was inadequate and that she may not have the resources in her home environment to appropriately care for her needs. In this regard, a geriatric social work professor consultation had been recommended on several occassions, but patient apparently insisted on remaining in her home environment despite that there was thought that is may be less than optimal. The patient is here at the [facility] for a second opinion regarding management of the abovementioned bilateral lower extremity wounds. She offers no other complaints. She denies any fevers, chills, wound-related pain or other related symptoms. 10/21/2017 Patient presents for follow-up. Overall, her lower extremity wounds are progressing favorably. One of the three is now healed. The remaining two show evidence of wound contraction and granulation tissue formation. She offers no new complaints. The edema in her lower extremities is well-controlled. She denies any fever, chills or other related symptoms. PAST MEDICAL HISTORY Diagnosis Date - Acquired hypothyroidism - Acute respiratory failure with hypoxia (HCC) 09/30/2017 - Atrial fibrillation (HCC) - CAD (coronary artery disease) Dr. Brenda Awan Hts, Promus element KIMMY LAD 11/20/2012, Stress test 04/2014 inferoapical reversible ischemia,small LVEF 48- 50%, LHC 12/2014 L main-normal, LAD widely patent, Cx diffuse mild luminal irregularities with 80%focal stenosis distal, RCA dominant with minimal luminal irregularities. 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 - Pure hypercholesterolemia - Rheumatoid arthritis ([facility]) 2007 - Sleep apnea - Stented coronary artery 12/29/2016 PAST SURGICAL HISTORY Procedure Laterality Date - CC CORONARY STENT 11/20/2012 KIMMY LAD - CC CORONARY STENT 12/20/2014 KIMMY, Cfx - SECTION HX - COLONOSCOPY 06/10/2017 [facility], Nonspecific cecal ulcer - GASTRIC BYPASS HX 1986 - HERNIA REPAIR HX 1987; 1989 - PAST SURGICAL HISTORY OF Right 09/2015 right tibia fracture ORIF - PAST SURGICAL HISTORY OF Right 01/20/2016 Removal of hardware, right tibia - TOTAL KNEE REPLACEMENT Right 2003 [facility] Gen. - TOTAL KNEE REPLACEMENT Left 2004 [facility] Gen. MEDICATIONS ergocalciferol, vitamin D2, (DRISDOL) 50,000 unit capsule Take 1 capsule by mouth once each week. levothyroxine (LEVOXYL) 100 mcg tablet Take 1 tablet by mouth once daily. Take on empty stomach. For Thyroid. gabapentin (NEURONTIN) 300 mg capsule Take 1 capsule by mouth twice daily. metoprolol tartrate, short acting, (LOPRESSOR) 50 mg tablet TAKE ONE TABLET BY MOUTH TWICE DAILY furosemide (LASIX) 40 mg tablet Take 1 tablet by mouth twice daily. COMPOUNDED PRESCRIPTION Calcium Alginate 4x4 Dressing, change daily Dx: Blister left leg with infection S80.822A, L08.9; Lymphedema I89.0. Wound dimensions: 4 x 3 cm acetaminophen (TYLENOL) 500 mg tablet Take 1,000 mg by mouth every 8 hours as needed. aspirin, enteric coated (ASPIRIN, ENTERIC COATED) 81 mg EC tablet Take 81 mg by mouth once daily. warfarin (COUMADIN) 1 mg tablet Take 1 mg by mouth daily as directed. Take 1 tablet (1mg) by mouth once daily. Take with 1 x 3mg tablet to total 4mg by mouth once daily. warfarin (COUMADIN) 3 mg tablet Take 3 mg by mouth daily as directed. Take 1 tablet (3mg) by mouth once daily. Take with 1 x 1mg tablet to total 4mg by mouth once daily. lisinopril (ZESTRIL) 2.5 mg tablet Take 2.5 mg by mouth once daily. omeprazole (PRILOSEC) 20 mg capsule Take 20 mg by mouth once daily. spironolactone (ALDACTONE) 25 mg tablet Take 25 mg by mouth once daily. docusate sodium (COLACE) 100 mg capsule Take 100 mg by mouth once daily as needed. therapeutic multivitamin w/ iron (THERAGRAN-M) 9 mg iron-400 mcg tablet Take 1 tablet by mouth once daily. ALLERGIES No Known Allergies FAMILY HISTORY: Patient's father in his 70s with a history of arthritis. Her mother at the age of 90 with a history of arthritis. SOCIAL HISTORY Patient is a , lives alone, but has a son nearby. She has 6 children. Substance Use Topics - Smoking status: Passive Smoke Exposure - Never Smoker - Smokeless tobacco: Never Used Comment: smoked for 40 years - Alcohol use No REVIEW OF SYSTEM: PAIN ASSESSMENT: Negative for pain, history of chronic pain, or current treatment for a chronic pain condition. GENERAL: No weight loss, malaise or fevers HEENT: Negative for frequent or significant headaches, No changes in hearing or vision, no nose bleeds or other nasal problems NECK: Negative for lumps, goiter, pain and significant neck swelling RESPIRATORY: Negative for cough, hemoptysis, wheezing, positive for shortness of breath CARDIOVASCULAR: Negative for chest pain,palpitations; has chronic leg swelling GI: No nausea, vomiting, or diarrhea : No history of dysuria, frequency or incontinence MUSCULOSKELETAL: Negative for joint pain or swelling, back pain or muscle pain SKIN: As per HPI. Negative for any other lesions, rash, and itching PSYCH: Negative for sleep disturbance, mood disorder and recent psychosocial stressors HEMATOLOGY/LYMPHOLOGY: Negative for prolonged bleeding, bruising easily or swollen nodes ENDOCRINE: Negative for cold or heat intolerance, polyuria, polydipsia and goiter NEURO: No history of headaches, syncope, paralysis, seizures or tremors 10/21/17 1300 BP: 155/75 Pulse: 59 Resp: 19 Temp: 36.6 ?C (97.8 ?F) TempSrc: Oral SpO2: 92% Weight: 88.1 kg (194 lb 4.8 oz) PHYSICAL EXAMINATION: HEENT: PERRLA , sclera non-icteric, EOM intact, mucous membrane moist, pink and w/o lesions Comments: Neck: Supple, no bruit, no masses, trachea midline Comments: Chest: Lungs clear to auscultation, no accessory muscle use for respiration Comments: Heart: Regular rate/rhythm, normal S1,S2, no murmur, rubs or gallops Comments: Abdomen: Soft, non-tender, non-distended, + bowel sounds, no bruit, no organomegaly Comments: Extremity: Dorsalis pedis : Present (Y) Absent Diminished Doppler Posterior Tibialis: Present (Y) Absent Diminished Doppler Capillary Refill: < 3 sec. (Y) > 3 sec. 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 Based upon the findings of this resting non-invasive lower extremity arterial study, arterial perfusion to ankle level appears to be relatively normal bilaterally. Triphasic and biphasic waveforms were noted at ankle level bilaterally. Resting ankle-brachial indices were bilaterally normal. 08/01/17 X-Ray 3-View Right Ankle Impression: There is prior open reduction internal fixation of the fibula which appears to be relatively intact allowing for advanced bony osteopenia. There is an irregular appearance of the lateral side distal tibia which is compatible with a prior fracture for which a new fracture on the lateral side is not excluded. The fracture could be potentially be associated with new trauma or potentially infection. Recommend consideration for follow-up study such as MRI or potentially three-phase bone scan. Flattened appearance of the arch of the foot with degenerative change of the tarsotarsal joints. Diffuse soft tissue swelling. Electronically Signed: Kelly Camarena MD at 20:15 EDT Tel , Service support , ? 10/14/17 Hemoglobin A1C = 5.8 ?? 10/14/17 WBC 8.4, Hgb 12.2, Hct 38.5, PLT 211, Glu 91, BUN 24, Cr 0.88, Na 136, K 4.7, Cl 100, Albumin 3.6, Total protein 9.1 ? 10/14/17 XR 2 View Tib/Fib (Left) Findings: Left tibia-fibula: Tibial component of the joint prosthesis noted without associated abnormal lucency. No acute fracture or bony destruction. Right tibia and fibula: Plate and screw fixation remote distal fibular fracture. There is also remote tibial fracture with residual posterior angulation. Ghost tracks from previous tibial hardware. Tibial component of the joint prosthesis noted without associated abnormal lucency. No acute fracture or bony destruction. ? Stereotype Finisher: DWIGHT ? Transcribe Date/Time: Oct 14 2017 ?4:02P Dictated by : ZURDO SANTOS MD ? 10/14/17 XR 2 View Tib/Fib (Right) Findings: Left tibia-fibula: Tibial component of the joint prosthesis noted without associated abnormal lucency. No acute fracture or bony destruction. Right tibia and fibula: Plate and screw fixation remote distal fibular fracture. There is also remote tibial fracture with residual posterior angulation. Ghost tracks from previous tibial hardware. Tibial component of the joint prosthesis noted without associated abnormal lucency. No acute fracture or bony destruction. ? Stereotype Finisher: DWIGHT ? Transcribe Date/Time: Oct 14 2017 ?4:02P Dictated by : ZURDO SANTOS MD ? 10/14/17 XR 2 View Tib/Fib (Left) Findings: Left tibia-fibula: Tibial component of the joint prosthesis noted without associated abnormal lucency. No acute fracture or bony destruction. Right tibia and fibula: Plate and screw fixation remote distal fibular fracture. There is also remote tibial fracture with residual posterior angulation. Ghost tracks from previous tibial hardware. Tibial component of the joint prosthesis noted without associated abnormal lucency. No acute fracture or bony destruction. WOUND ASSESSMENT: Wound Number: 1 First Assessed Date: 10/14/17 Pre-existing: YES Location: Leg Orientation: Right, Lateral and Distal Wound Etiology: Venous Depth of Tissue Injury (Non-pressure): Full Thickness Diabetic Wounds:N/A Pressure Injury: N/A Pre-Measurements Initial (First Visit): 3.5 cm length x 4.0 cm width x 0.5 cm depth Post Measurement (Current): 3.3 cm length x 4.0 cm width x 0.5 cm depth % Healing Rate/#Weeks: 5.7% -- Week 1 Wound Bed (Post-debridement): 100% red % of Healthy tissue: Undermining: No Tunneling: No Tendon/bone exposed: NO Wound Edge/Margins: Irregular wound edges and Edge attached to base Periwound Tissue: Mild erythema, Wet (macerated), and Edema Exudate Amount:Moderate Consistency:Serous Odor:Minimal Infection/Critical Colonization Localized s/s: Non-healing and Increased exudate Systemic s/s: None Local/systemic Rx: None Wound Healing Status: Chronic Clinically presenting as: Stalled wound healing Current topical treatment: Iodoflex Wound Number: 2 First Assessed Date: 10/14/17 Pre-existing: YES Location: Leg Orientation: Right, Medial and Distal Wound Etiology: Surgical Depth of Tissue Injury (Non-pressure): Partial Thickness Diabetic Wounds:N/A Pressure Injury: N/A Pre-Measurements Initial (First Visit): 0.5 cm length x 0.4 cm width x 0.1 cm depth Post Measurement (Current): Epithelialized % Healing Rate/#Weeks: Week 1 -- Healed Wound Bed (Post-debridement): % of Healthy tissue: Undermining: No Tunneling: No Tendon/bone exposed: NO Wound Edge/Margins: Normal, intact, Irregular wound edges and Edge attached to base Periwound Tissue: Normal, intact,uninvolved tissue and Dry,flaky Exudate Amount: None Consistency: None Odor:None Infection/Critical Colonization Localized s/s: None and Edema Systemic s/s: None Local/systemic Rx: None Wound Healing Status: Chronic Clinically presenting as: Healed Current topical treatment: Iodoflex Wound Number: 3 First Assessed Date: Pre-existing: YES Location: Leg (calf) Orientation: Left and Posterior Wound Etiology: Venous Depth of Tissue Injury (Non-pressure): Full Thickness Diabetic Wounds:N/A Pressure Injury: N/A Pre-Measurements Initial (First Visit): 1 3 cm length x 1.2 cm width x 0.1 cm depth Post Measurement (Current): 1.5 cm length x 1.3 cm width x 0.15 cm depth % Healing Rate/#Weeks: Wound Bed (Post-debridement): 100% red % of Healthy tissue: Undermining: No Tunneling: No Tendon/bone exposed: NO Wound Edge/Margins: Well-defined wound edges and Edge attached to base Periwound Tissue: Mild circumferential erythema, No fluctuance, induration or advancing soft tissue necrosis or ischemia Exudate Amount:Scant/Minimal Consistency:Serous Odor:None Infection/Critical Colonization Localized s/s: Non-healing and Edema Systemic s/s: None Local/systemic Rx: None Wound Healing Status: Chronic Clinically presenting as: Stalled wound healing Current topical treatment: Dry gauze pad IMPRESSION: 1. Non-healing right and left lower extremity wounds ( #1 and #3) in the setting of chronic venous insufficiency with secondary lymphedema. 2. Recurrent right medial leg wound s/p STSG in the setting of chronic edema. 3. Significant lower extremity edema secondary to underlying chronic venous insufficiency with secondary lymphedema. 4. Multiple risk factors or co-morbidities that may contribute to wound healing difficulties include hypothyroid disease, chronic atrial fibrillation on anticoagulation, coronary artery disease, COPD, dyslipidemia, hypertension, muscle weakness, osteoarthritis, GERD, depression and obesity. 5. Wound cultures positive for Enterobacter cloacae and Staph aureus most likely increased colonization. 6. Very good glucose control based on recent HgbA1c. 7. Zinc insufficiency ( precursor for collagen synthesis. TREATMENT PLAN: Debridement Type: Autolytic Enzymatic Mechanical Surgical Sharp (Y) Other: ?? Sharp debridement is performed to freshen up the wound and stimulate the healing cascade. It allows the wound to progress from the inflammatory to the proliferative phase of wound healing. Wound Dressing: See Nursing Notes for details. . Topical Rx: Wound each flushed with 10 cc of saline solution. Vitamin AANDD ointment liberally applied to both lower legs. Calcium alginate was applied to both wounds. Sites were covered with abd pads and a profore lite compression wrap. Profore Multiple layer Application: A 3- layer system applied to the bilateral lower extremities. A layer of cast padding, crepe bandage, light compression bandage, followed with a layer of coban and stockinet from behind the toes to 1 below the knee. Toes were warm and pink before and post application. + dorsal pedis pulse on palpation. It was demonstrated to the patient how to check for adequate circulation. If the patient exhibits a change in color to the extremity: change in temperature, increased pain, or the compression wrap becomes wet or to tight, the patient has been instructed to remove the wrap or go to the Emergency Department. Patient voices understanding with intent to comply. Systemic Rx: Start Doxycycline 100 mg by mouth twice daily x 14 days and zinc 220 mg by mouth daily x 14 days. Nutritional Support: MVI, Zinc Supplement and Protein Supplement Patient is instructed to continue a healthy, well-balanced diet for nutritional support for optimal healing. Protein is the most important nutrient for wound healing. Eating adequate amounts of protein allows the body to create new cells and chemicals to heal the wound, and increases the body?s ability to fight infection. Eating high protein foods daily is recommended such as: lean meats, fish, poultry, cheese, milk, yogurt, eggs and legumes. Vitamins and minerals provide a full range of nutrients for wound healing. It can help jump start the body's production of cells and chemicals needed for healing. Vitamins and minerals can be obtained through healthy foods in your diet and by taking a multiple vitamin supplement. Vitamin C is essential for collagen synthesis. Collagen and fibroblasts compose the basis for the structure of a new wound bed. Also, a deficiency of Vitamin C prolongs the healing time and contributes to reduced resistance to infection. Laboratory: We will obtain wound cultures to determine bacterial load. Results positive for few Enterobacter cloacae complex and many Staph aureus. No anaerobic organisms or fungal elements. Wound cultures are collected to assess level of bacterial bio-burden. Excessive bio-burden can result in inflammatory and proliferative phase stagnation as well as compromise of normal wound healing physiology. Bacterial proliferation, biofilm production, critical colonization and the development of resistant organism can lead to wound infection, wound deterioration and devastating tissue loss. Knowing the organism that populated the wound can help direct therapy, particularly anti-microbial dressing choices. Vascular Evaluation: We will order PVRs for both lower extremities to evaluate for arterial insufficiency to see if poor circulation is an issue regarding her slow healing. Follow-up is scheduled in 1 week, sooner with any concerns or worsening symptoms. Luis Simons CNP Charge Capture: [id number] PROCEDURE Observed: 10/21/2017 Status: COMPLETED Source: VICTOR 1:00 PM [facility] OTHER CAMPUS REPOSITORY HNO ID: [id number] Author: Luis Lyles (Loi) LOI Simons Service: (none) Author Type: Nurse Practitioner Type: Procedures Filed: 11/29/2017 12:23 PM Note Text: A procedural pause was conducted immediately prior to starting the wound debridement to verify correct patient identity using two patient identifiers: the correct site and correct procedure. Permission from the patient to perform the procedure was obtained. After providing local analgesia with Lidocaine 2% gel, a full-thickness excisional debridement of wounds # 1AND3 was performed and carried through the skin and subcutaneous tissue, using a sterile #15 blade, iris scissors, and forceps to remove the non-viable or devitalized tissue. The debridement extended into the viable wound margin/s to promote a healthy, active wound edge to support healing. The patient tolerated the procedure well without complications. Hemostasis was achieved with direct pressure. The wound/s was/were then copiously irrigated with sterile normal saline and dressings were applied. PROTIME Collected: 10/21/2017 Status: F Source: VICTOR 12:15 PM [facility] REPOSITORY TYPE CODE TESTS RESULT OUT OF RANGE REFERENCE UNITS LAB PSEC 9.7-13.0 sec High PT Sec 25.8 LAB INR 0.9-1.3 High PT INR 2.6 Result Comment: Vitamin K Antagonist (VKA) Therapeutic Range: INR 2 to 3 (Target INR of 2.5) Note: For patients treated with VKA drugs, such as warfarin, the [employer] 2012 Guideline recommends a therapeutic INR range of 2 to 3 (target INR of 2.5). This recommendation includes high-risk patients with antiphospholipid syndrome with previous arterial or venous thromboembolism, current-generation mechanical or bioprosthetic aortic heart valve replacement. Note: Patients with mechanical aortic valve replacement and additional risk factors for thromboembolic events (atrial fibrillation, previous thromboembolism, LV dysfunction, hypercoagulable conditions) or an older generation mechanical AVR (i.e., ball in-Cage) or any mechanical MVR should have a INR therapeutic range of 2.5 to 3.5 (target INR of 3). Shweta GH, et al. Chest 2012, 141:7S-47S Genevieve RA, et al. [facility] 2017, 70: 252-289 Performed By: #### PT #### [facility] [address] [address] ALLERGIES ALLERGIES DATE TYPE / CODE NAME / CODE REACTION SEVERITY SOURCE 06/05/2018 Drug No Known Unknown [facility] Allergy/416 Allergies/K35249 [facility] 903093(SNOM 0388(RXNORM) Repository ED CT) NG/[id number] NO KNOWN [facility] 6(SNOMED ALLERGIES [facility]) Repository Drug NO KNOWN [facility] Class/86901 ALLERGIES [facility] 1003(SNOMED Repository CT) ENCOUNTERS ENCOUNTERS ADMIT/DISCHARGE ACCOUNT NUMBER ADMITTING ENCOUNTER LOCATION SOURCE CLASS 10/16/2018 [id number] Ambulatory [facility] lding:OLS.A Repository VEB 10/10/2018 [id number] Ambulatory [facility] lding:OLS.A Repository VEB 10/07/2018 [id number] Ambulatory [facility] lding:OLS.A Repository VEB 10/01/2018/ [id number] [facility], Inpatient [place] 018 Ghasem Encounter [facility] lding:PCURo Repository om: [id number]: 1 10/01/2018 [id number] [place], [facility] [place] [facility] 10/01/2018 [id number] [facility], [facility] [place] [facility] 10/01/2018 [id number] [place], Ambulatory BMSBuilding [place] Ghasem :BMS.[facility] Repository 10/01/2018 [id number] [place], Ambulatory BMSBuilding [place] Ghasem :BMS.[facility] Repository 10/01/2018 [id number] [place], Ambulatory BMSBuilding [place] Ghasem :BMS.[facility] Repository 10/01/2018 [id number] [place], Ambulatory BMSBuilding [place] Ghasem :BMS.[facility] Repository 09/26/2018 [id number] Ambulatory [facility] lding:OLS.A Repository VEB 09/12/2018 [id number] [facility] lding:OLS.A Repository VEB 08/29/2018 [id number] [facility] lding:OLS.A Repository VEB 08/15/2018 [id number] [facility] lding:OLS.A Repository VEB 08/14/2018 [id number] Ambulatory ABuilding:Farrah Meza [facility] Repository 07/31/2018/ [id number] Ambulatory ABuilding:Pinky Salomon DURoo: [facility] 0109Bed: A [facility] Repository 07/11/2018 [id number] Ambulatory ABuilding:Giselle Meza [facility] Repository 07/11/2018/ [id number] URIEL RUIZ, Inpatient LBuilding:Giselle Salomon [place] Encounter TCHRoom: [facility] 4520Bed: A [facility] Repository 07/03/2018/ [id number] ANA DAVISON MD. Inpatient BBuilding:Tulio Salomon CARLA W Encounter SURRoom: [facility] 0231Bed: A [facility] Repository 06/27/2018/ [id number] Ambulatory [address] Repository 06/27/2018/ [id number] Ambulatory [address] Repository 06/27/2018/ [id number] Ambulatory [address] Repository 06/22/2018/08/23 [id number] Ambulatory [place] [facility]18 Clinic Other [place] Repository 06/05/2018/ [id number] Emergency [place] lding:ED Repository 06/04/2018 [id number] Ambulatory BMSBuilding [place] :[facility] Repository 05/25/2018/ [id number] Brody Sweet Chi Inpatient [place] 018 [facility] lding:TCURo Repository om: [id number]: 1 05/22/2018/ [id number] SUZIEAYATA, Inpatient [place] 018 MOHAMED Encounter Clinic Other [place] Repository 05/22/2018/ [id number] Ambulatory [place] 018 Clinic Other [place] Repository 05/22/2018 [id number] [facility] Rep[facility] 05/19/2018/ [id number] Ambulatory [place] 018 Clinic Other [place] Repository 05/16/2018 [id number] Ambulatory [facility] lding:OLS.A Repository 05/15/2018/ [id number] Ambulatory [place] 018 Clinic Other [place] Repository 05/11/2018 [id number] [facility] 05/10/2018/ [id number] Ambulatory [place] 018 Clinic Other [place] Repository 05/10/2018 [id number] [facility] Rep[facility] 05/09/2018 [id number] [facility] Rep[facility] 05/05/2018 [id number] [facility] Repository 05/04/2018 [id number] Ambulatory [facility] lding:OLS.A Repository 05/03/2018 [id number] Ambulatory [facility] lding:OLS.A Repository 05/02/2018 [id number] Ambulatory [facility] lding:OLS.A Repository 05/01/2018 [id number] Ambulatory [facility] lding:OLS.A Repository 04/29/2018 [id number] Ambulatory [facility] lding:OLS.A Repository 04/28/2018 [id number] [facility] lding:OLS.A Repository 04/27/2018 [id number] [facility] lding:OLS.A Repository 04/20/2018/ [id number] XAVIER MERCADO Inpatient [place] 018 Encounter Clinic Other [place] Repository 04/20/2018/ [id number] Emergency BBuilding:Guera Salomon [facility] Repository 04/14/2018/ [id number] Ambulatory [place] 018 Clinic Main [place] Repository 04/14/2018/ [id number] Ambulatory [place] 018 Clinic Main [place] Repository 04/14/[id number] [facility] Rep[facility] 04/11/2018/ [id number] Ambulatory [place] 018 Clinic Other [place] Repository 03/17/2018/ [id number] [facility] Inpatient [place] 018 , Encounter Clinic Other [facility] Repository 03/17/2018/ [id number] Ambulatory [facility]18 [facility] Other [place] Repository 03/13/2018/ [id number] [facility]ulatory [facility] 018 [facility] Main [place] Repository 03/08/2018/ [id number] Ambulatory [facility] 018 [facility] Other [place] Repository 03/06/2018 [id number] [facility] [place] Repository 03/06/2018/ [id number] Ambulatory [facility] 018 [facility] Main [place] Repository 02/24/2018/ [id number] NEREIDA RUIZ, Inpatient BBuilding:Tulio Yan Encounter SURRoom: [facility] 0234Bed: [facility] Repository 02/17/2018/ [id number] Ambulatory [facility] 018 [facility] Main [place] Repository 02/14/2018/ [id number] Ambulatory [facility] 018 [facility] Other [place] Repository 02/10/2018/ [id number] Ambulatory [facility] 018 [facility] Other [place] Repository 02/07/2018/ [id number] Ambulatory [facility] 018 [facility] Main [place] Repository 02/07/2018/ [id number] Ambulatory [facility] 018 [facility] Main [place] Repository 02/07/2018/ [id number] Ambulatory [facility] 018 [facility] Other [place] Repository 02/07/2018/ [id number] [facility] 02/03/2018/ [id number] Ambulatory [facility] 018 [facility] Main [place] Repository 01/25/2018/ [id number] ANA DAVISON MD. Inpatient BBuilding:Tulio Yan Encounter SURRoom: Health 0221Bed: [facility] Repository 01/20/2018/ [id number] Ambulatory [facility] 018 [facility] Main [place] Repository 01/13/2018 [id number] Ambulatory [facility] [place] Repository 01/13/2018 [id number] Ambulatory [facility] Main [place] Repository 01/13/2018/ [id number] Ambulatory [facility] 018 [facility] Other [place] Repository 01/11/2018 [id number] Ambulatory [facility] Other [place] Repository 01/11/2018/ [id number] [facility]ulatory AKRON Hardy [facility] Rep[facility] 01/06/2018/ [id number] Ambulatory [facility] 018 [facility] Other [place] Repository 01/06/2018/ [id number] Ambulatory AKRON Hardy [facility] Repository 12/30/2017/ [id number] Ambulatory [facility] 018 [facility] Other [place] Repository 12/19/2017/ [id number] GALLITO CLARKE Inpatient [place] [facility]18 [facility] [place] Repository 12/19/2017/ [id number] Ambulatory [facility] 018 [facility] Other [place] Repository 12/12/2017 [id number] Ambulatory [facility] [place] Repository 12/12/2017/ [id number] Ambulatory [facility] 018 [facility] Main [place] Repository 12/12/2017/ [id number] Ambulatory [facility] 018 [facility] Main [place] Repository 12/05/2017/ [id number] Ambulatory [facility] 018 [facility] Main [place] Repository 12/02/2017/ [id number] Ambulatory [facility] 018 [facility] Main [place] Repository 12/02/2017/ [id number] Ambulatory [facility] 018 [facility] Main [place] Repository 11/25/2017 [id number] [facility]ulatory [facility] [place] Repository 11/25/2017/ [id number] Ambulatory [facility] 018 [facility] Other [place] Repository 11/14/2017/ [id number] Ambulatory [facility] 018 [facility] Other [place] Repository 11/04/2017/ [id number] Ambulatory [facility] 018 [facility] Other [place] Repository 11/04/2017/ [id number] Ambulatory [facility] 018 [facility] Main [place] Repository 11/04/2017/ [id number] Ambulatory [facility] 018 [facility] Main [place] Repository 10/28/2017/ [id number] Ambulatory [facility] 017 [facility] Other [place] Repository 10/28/2017 [id number] Ambulatory [facility] Main [place] Repository 10/21/2017/ [id number] Ambulatory [facility] 017 [facility] Other [place] Repository 10/21/2017 [id number] Ambulatory [facility] [place] Repository PAYERS PAYERS ENCOUNTER GUARANTOR PAYER SUBSCRIBER SOURCE 10/16/2018 ROSA L Primary Insurance:SELF NOT GIVENUNK Vale [id number] E [facility] Date:2018-10-16 Repository [place], [place] [address]Tdj: () 10/10/2018 ROSA L Primary Insurance:SELF NOT GIVENUNK Vale [id number] E [facility] Number: Effective [facility] Date:2018-10-10 Repository [place], [place] [address]Ked: () 10/07/2018 ROSA L Primary Insurance:SELF NOT GIVENUNK Vale [id number] E [facility] Number: Effective [facility] Date:2018-10-07 [place]ository [place], [place] [address]Ppz: (HP) 10/01/2018 ROSA L Primary ROSA L Vale [id number] E Insurance:MEDICARE PART GREGORYDOB: [facility]: [id number] Clark Medical Center [id number] Repository [place] Date:2018-10-01 [address]Gaf: (HP) 10/01/2018 Secondary ROSA L Vale Insurance:ANTHEMPolicy [facility]: Community Number: [id number] Hospital [id number] Repository e Date:9757-48-47AJ [address] [place] [address]XB: 10/01/2018 Tertiary Insurance:SELF NOT GIVENUNK Vale PAY INSURANCEPolicy Community Number: Effective Hospital Date:2018-10-01 Repository 10/01/2018 ROSA L Primary ROSA L Vale [id number] E Insurance:MEDICARE PART [facility]: [facility] BPolicy Number: [id number] Clark Medical Center [id number] Repository [place] Date:2018-10-01 915[address]Wtg: () 10/01/2018 Secondary ROSA L Vale Insurance:ANTHEMPolicy DESTINEEORYDOB: Community Number: [id number] [id number] Repository e Date:9756-68-89PI [address] [place] [address]15[address]CR: 10/01/2018 Tertiary Insurance:SELF NOT GIVENUNK [place] PAY INSURANCEPolicy Community Number: Effective Hospital Date:2018-10-01 Repository 10/01/2018 ROSA L Primary ROSA L [place] [id number] E Insurance:MEDICARE PART GREGORYDOB: [facility] Number: [id number] Clark Medical Center [id number] Repository [place] Date:2018-10-01 66[address]Qvb: (HP) 10/01/2018 Secondary ROSA L Vale Insurance:ANTHEMPolicy GREGORYDOB: Community Number: [id number] [facility] [id number] Repository e Date:9928-41-28[address]VYEZFMQ, [place] [address]BE: 10/01/2018 Tertiary Insurance:SELF NOT GIVENUNK [place] PAY INSURANCEPolicy Community Number: Effective Hospital Date:2018-10-01 Repository 10/01/2018 ROSA L Primary ROSA L Vale [id number] E Insurance:MEDICARE PART GREGORYDOB: [facility] BPolicy Number: [id number] Clark Medical Center [id number] Repository [place] Date:2018-10-01 92402Wtz: (KL) 10/01/2018 Secondary ROSA L Vale Insurance:ANTHEMPolicy DESTINEEORYDOB: Community Number: [id number] Hospital [id number] Repository e Date:4122-19-21QS [address]JXUGCZD, [place] [address]SV: 10/01/2018 Tertiary Insurance:SELF NOT GIVENUNK [place] PAY INSURANCEPolicy Community Number: Effective Hospital Date:2018-10-01 Repository 10/01/2018 ROSA L Primary ROSA L [place] [id number] E Insurance:MEDICARE PART GREGORYDOB: [facility] BPolicy Number: [id number] Clark Medical Center [id number] Repository [place] Date:2018-10-01 625[address]Mxv: (ZX) 10/01/2018 Secondary ROSA L Vale Insurance:ANTHEMPolicy GREGORYDOB: Community Number: [id number] Hospital [id number] Repository e Date:8586-82-19HV [address]LPGDSGB, [place] [address]KR: 10/01/2018 Tertiary Insurance:SELF NOT GIVENUNK [place] PAY INSURANCEPolicy Community Number: Effective Hospital Date:2018-10-01 Repository 10/01/2018 ROSA L [id number] Primary ROSA L Vale E LYONS Insurance:MEDICARE PART GREGORYDOB: [facility] BPolicy Number: [id number], [place] [id number] Repository [address]Cxv: 330) Date:2018-10-01 [phone] () 10/01/2018 Secondary ROSA L Vale Insurance:ANTHEMPolicy GREGORYDOB: Community Number: [id number] Hospital [id number] Repository e Date:2641-84-04QI [address] [place] [address]NV: 10/01/2018 Tertiary Insurance:SELF NOT GIVENUNK [place] [facility]Y [facility] Community Number: Effective Hospital Date:2018-10-01 Repository 10/01/2018 ROSA L Primary ROSA L Vale [id number] E Insurance:MEDICARE PART GREGORYDOB: [facility] Number: [id number] Clark Medical Center [id number] Repository [place] Date:2018-10-01 623[address]Kop: () 10/01/2018 Secondary ROSA L [place] Insurance:ANTHEMPolicy DESTINEEORYDOB: Community Number: [id number] Hospital [id number] Repository e Date:8119-24-83GJ [address] [place] [address] 07[address]GR: 10/01/2018 Tertiary Insurance:SELF NOT GIVENUNK [place] [facility]Y [facility] Community Number: Effective Hospital Date:2018-10-01 Repository 09/26/2018 ROSA L [id number] Primary Insurance:SELF NOT GIVENUNK [place] [facility] Number: [facility] [place] [id number]: Date:2018-09-26 Repository () 09/12/2018 ROSA L [id number] Primary Insurance:SELF NOT GIVENUNK [place]en[place] PAY [facility], Number: Effective [place] [id number]: Date:2018-09-12 Repository () 08/29/2018 ROSA L [id number] Primary Insurance:SELF NOT GIVENUNK [place] [facility] Number: [place] [id number]: Date:2018-08-29 Repository () 08/15/2018 ROSA DE Primary Insurance:SELF NOT GIVENUNK [facility], Number: [place] [id number]: Date:2018-08-15 Repository (HP) 08/14/2018 [id number], Insurance:MEDICARE PART SOLANGEB: [facility] [address]Nbd: BPolicy Number: [id number] Repository [id number] [place] () Date:2018-08-09 - [place] 7022-50-61Tobv [address]Zcv: 330) Name:[facility] 371[facility] ()Tel: (752) [address] [address]Aoxezgtgc, [place] 000-0000 () 17[address]DN: 08/14/2018 Secondary [facility] Insurance:ELSIE JACKSON: [facility] [id number] Repository Number: WABASH [id number] [place], [place] e Date:2018-08-09 [address]Vhx: (045) [id number] Name:FORMERLY [facility] [phone] [address] [place] [address] ()Tel: ([phone]) [phone]: [phone] (WP) 07/31/2018 UNIT [id number] Primary Insurance:SELF [address] Number: SOLANGEB: [facility] [address]Ffx: Effective [id number] Repository Date:2018-07-26 - ILBA () 0309-78-90Zvmu Name:[address] [place] [address]Nju: (HP) (WP) 07/11/2018 [facility] Primary Insurance:SELF [facility] CAREDOB: PAYPolicy Number: MANUEL: Perla [id number] Effective [id number] Repository 6TH [facility], Date:2018-07-11 [facility] [address]Ogi: 5669-79-62Qigr Name:[address] [place] [address] 208[address]Lsm: (330) (HP) [phone] (HP) (WP) 07/11/2018 ROSA L Primary [facility] SOLANGEB: Insurance:MEDICARE PART SOLANGEVerónica: [facility] APolicy Number: [id number] Repository [place] [id number] [place], [place] Date:2018-07-11 - [place] [address]~QNOLSRKG39 2292-21-12Xhma [address]Vwz: 330) @[facility] HOS[facility]ITALel: Name:[facility] [phone] [address] (HP)Tel: (000) (HP)Tel: (999) 152364Ngymynzb, [place] 000-0000 (WP) [phone] (WP) [address]TG: 07/11/2018 Secondary [facility] Health Insurance:MEDICARE PART MANUEL: Perla BPolicy Number: [id number] Repository [id number] [place] Date:2018-07-11 - [place] 9481-13-07Ojkj [address]Zfq: (330) Name:[facility] [phone] Administrators LLCPO (HP)Tel: (000) [address] [address]Lydfasxja, [place] 000-0000 (WP) [address]YI: 07/11/2018 Tertiary [facility] Health Insurance:ELSIE JACKSON: [facility] [id number] Repository Number: ROB [id number] [place], [place] e Date:2018-07-11 556[address]Ykl: 330 0034-18-81Lcul Name:FORMER[facility] [phone] [address]IorkzjhCLARA Cabral (HP)Tel: [phone]) 13687WP: 000-0000 (WP) 07/03/2018 [facility]A L [facility] Insurance:MEDIC[facility] PART [facility]EC[facility]: [facility] APolicy Number: [id number] Repository SRIKANTH [id number] [place] Date:2018-07-03 [place] [address]~JJDBKSRK15 8826-90-40Ixwa 913[address]Uee: 330) @[facility] HOS[facility]ITALel: Name:[facility] [phone] [address] (HP)Tel: (000) (HP)Tel: (999) 953338Pqnyxnck, [place] 000-0000 (WP) [phone] (WP) [address]YO: 07/03/2018 Secondary [facility] Health Insurance:MEDICARE PART [facility]EC[facility]: [facility] BPolicy Number: [id number] Repository [id number] [place] Date:2018-07-03 [place] 7601-70-20Mkev [address]Wst: (330) Name:[facility] [phone] Administrators LLCPO (HP)Tel: (000) [address] [address]Qwburflet, [place] 000-0000 (WP) 327[address]MG: 07/03/2018 Tertiary ROSA [facility] Health Insurance:ELSIE PATEL [facility]: [facility] [id number] Repository Number: ROB [id number] [place], [place] e Date:2018-07-03 22755Low: 330) 5434-24-59Plxj Name:[facility] [phone] [place] [address] (HP)Tel: (328) 79344GZ: [phone] () 06/05/2018 ROSA L [id number] Primary ROSA L [place] Mckenney Insurance:MEDICARE PART GREGORYDOB: [facility] BPolicy Number: [id number] Health Center [address]Orz: [id number] Repository Date:2018-06-05 () 06/05/2018 Secondary ROSA L [place] Insurance:ANTHEMPolicy GREGORYDOB: Community Number: [id number] Hospital [id number] Repository e Date:0401-03-77NS [address] [place] [address] 95[address]LQ: 06/05/2018 Tertiary Insurance:SELF NOT GIVENUNK [place] PAY INSURANCEPolicy Community Number: Effective Hospital Date:2018-06-05 Repository 06/04/2018 ROSA L [id number] Primary ROSA L [place] Mckenney Insurance:MEDICARE PART GREGORYDOB: [facility] BPolicy Number: [id number] Health Center [address]Blq: [id number] Repository Date:2018-06-05 () 06/04/2018 Secondary ROSA L [place] Insurance:ANTHEMPolicy GREGORYDOB: Community Number: [id number] Hospital [id number] Repository e Date:8653-66-88TF [address] [place] [address] 22770QK: 06/04/2018 Tertiary Insurance:SELF NOT GIVENUNK [place] PAY INSURANCEPolicy Community Number: Effective Hospital Date:2018-06-04 Repository 05/25/2018 ROSA L [id number] Primary ROSA L [place] Mckenney Insurance:MEDICARE PART GREGORYDOB: [facility] BPolicy Number: [id number] Hospital [place] [address]Lgb: [id number] Repository Date:2018-05-25 () 05/25/2018 Secondary ROSA L [place] Insurance:ANTHEMPolicy GREGORYDOB: [facility] Number: [id number] Hospital [id number] Repository e Date:3900-49-16DO [address]ZKZMIQM, [place] [address]CF: 05/25/2018 Tertiary Insurance:SELF NOT GIVENUNK [place] [facility] Number: Effective Hospital Date:2018-05-25 Repository 05/22/2018 ROSANicola DE Primary Insurance:SELF NOT GIVENUNK [place] [facility] Number: [place] [id number]: Date:2018-05-22 Repository () 05/16/2018 Rosa De Primary Insurance:SELF NOT GIVENUNK [place] [facility], Number: [facility] [place] [id number]: Date:2018-05-16 Repository () 05/11/2018 Mchenrynicola De Primary Insurance:SELF NOT GIVENUNK [place] [facility], Number: [place] [id number]: Date:2018-05-11 Repository () 05/10/2018 ROSA [id number] Primary Insurance:SELF NOT GIVENUNK [place] [facility], Number: [place] [id number]: Date:2018-05-10 Repository () 05/09/2018 ROSA [id number] Primary Insurance:SELF NOT GIVENUNK [place] [facility]Y [facility], Number: [place] [id number]: Date:2018-05-09 Repository (HP) 05/05/2018 Rosa Beltran121 Primary Insurance:SELF NOT GIVENUNK [place] [facility], Number: Effective [place] [id number]: Date:2018-05-05 Repository () 05/04/2018 ROSANicola BELTRAN121 Primary Insurance:SELF NOT GIVENUNK [place] [facility], Number: [facility] [place] [id number]: Date:2018-05-04 Repository () 05/03/2018 Rosa Beltran121 Primary Insurance:SELF NOT GIVENUNK [place] [facility] Number: [place] [id number]: Date:2018-05-03 Repository () 05/02/2018 Rosanicola Beltran121 Primary Insurance:SELF NOT GIVENUNK [place] [facility], Number: [place] [id number]: Date:2018-05-02 Repository (HP) 05/01/2018 Mchenrynicola Beltran121 Primary Insurance:SELF NOT GIVENUNK [place] [facility], Number: [place] [id number]: Date:2018-05-01 Repository () 04/29/2018 Rosanicola Beltran121 Primary Insurance:SELF NOT GIVENUNK [place] [facility], Number: Effective [place] [id number]: Date:2018-04-29 Repository () 04/28/2018 Mchenrynicola Beltran121 Primary Insurance:SELF NOT GIVENUNK [place] [facility], Number: [facility] [place] [id number]: Date:2018-04-28 Repository () 04/27/2018 Rosa Beltran121 Primary Insurance:SELF NOT GIVENUNK [place] [facility], Number: Effective [place] [id number]: Date:2018-04-27 Repository (HP) 04/20/2018 ROSA L Primary [place] G[facility] DESTINEEMERCER COUNTY COMMUNITY HOSPITALMICHELLE: Insurance:MEDICARE PART MANUEL: [facility] [id number] BPolicy Number: [id number] Repository [place] [id number] [place], [place] Date:2018-04-20 - [place] [address]~RTKSABWI65 4971-66-01Xvug 517[address]Sho: (483) @Alien TechnologySTATEN ISLAND UNIVERS[facility].MICHAELLEel: Name:[facility] [phone] Administrators LLCPO (HP)Tel: (000) (HP)Tel: (999) [address] [address]Rwfoqgfaj, [place] 000-0000 (WP) [phone] (WP) [address]DF: 04/20/2018 Secondary ROSA L [facility] Insurance:[facility]USFRANCISCO PATEL [facility] HOSPITALB: [facility] [id number] Repository Number: WABASH [id number] [place], [place] e Date:2018-04-20 [address]Jsc: (643) 0031-31-21Mhpm Name:O [phone] [place] [address] ()Tel: (831) 74813WP: 000-0000 (WP) 04/14/2018 ROSA L Primary ROSA L [facility] MORTONDOB: Insurance:MEDICARE A MORTONDOB: [facility] AND BPolicy Number: [id number] Repository [place] [id number] [place], [place] Date: [address]Thh: () 04/14/2018 Secondary ROSA L [facility]: [facility] [id number] Repository Number: [id number] e Date: 02/24/2018 ROSA L Primary ROSA L [facility] GREGORYDOB: Insurance:MEDICARE PART [facility]OS[facility]ITALB: [facility] APolicy Number: [id number] Repository [place] [id number] [place], [place] Date:2018-02-24 - [place] [address]~PABWDJBZ19 5005-68-01Ijfq 94[address]Ovz: (317) @[facility].MICHAELLEel: Name:[facility] [phone] [address] (HP)Tel: (000) (HP)Tel: (512) 134[address]Cnpdbkgz, [place] 000-0000 (WP) [phone] (WP) [address]EZ: 02/24/2018 Secondary ROSA L [facility] Insurance:MEDICARE PART [facility]: [facility] BPolicy Number: [id number] Repository [id number] [place] Date:2018-02-24 - [place] 2719-83-38Doqe [address]Ais: (330) Name:[facility] [phone] Administrators LLCPO (HP)Tel: (000) [address] [address]Tfbpiutqz, [place] 000-0000 (WP) 07[address]NG: 02/24/2018 Tertiary ROSA L [facility] Insurance:ELSIE PATEL [facility]: [facility] [id number] Repository Number: [place] [id number] [place], [place] e Date:2018-02-24 590[address]Rbk: (092) 3326-44-11Ccig Name:O [phone] [place] [address] (HP)Tel: (589) 04152WP: 000-0000 (WP) 02/07/2018 ROSA L Primary ROSA L [facility] MORTONDOB: Insurance:MEDICARE A [facility]: [facility] AND BPolicy Number: [id number] Repository [place] [id number] [place], [place] Date: [address]Irq: (HP) 02/07/2018 Secondary ROSA L [facility] Insurance:BUCHANAN MARJORIE [facility]: [facility] [id number] Repository Number: [id number] e Date: 01/25/2018 ROSA L Primary ROSA L [facility]ITALORYD[facility]: Insurance:MEDICARE PART [facility]: [facility] APolicy Number: [id number] Repository [place] [id number] [place], [place] Date:2018-01-25 [place] [address]~HTZZCBLQ12 0621-67-09Nrfl 420[address]Fje: (209) @[facility] HOSPITALel: Name:Mariana Code [phone] [address] (HP)Tel: (000) (HP)Tel: (685) 616[address]SfykdzrvWINSLOW, [place] 000-0000 (WP) [phone] (WP) [address]XL: 01/25/2018 Secondary ROSA L [facility] Insurance:ELSIE JACKSON: [facility] [id number] Repository Number: WABA [id number] [place], [place] e Date:2018-01-25 917[address]Rou: 330 5224-02-29Izfn Name:[facility]ERLY [facility] [phone] [place] [address] ()Tel: (000) 08037WP: 000-0000 (WP) 01/25/2018 Tertiary ROSA L [facility] Insurance:MEDICARE PART SOLANGE: [facility] BPolicy Number: [id number] Repository [id number] [place] Date:2018-01-25 - [place] 0501-35-07Igqi [address]Gqd: (330) Name:[facility] [phone] Administrators LLCPO (HP)Tel: (000) [address] [address]Glkggbeeg, [place] 000-0000 (WP) 27[address]NZ: 01/11/2018 ROSA L Primary ROSA L [facility] DEVINDOB: Insurance:MEDICARE A DESTINEECOSHOCTON REGIONAL MEDICAL CENTERB: Health System AND BPolicy Number: [id number] Repository [place] [id number] [place], [place] Date: [address]Ibl: (HP) 01/11/2018 Secondary ROSA L [facility] Insurance:BLUE MARJORIE NARVAEZB: [facility] [id number] Repository Number: [id number] e Date: 01/06/2018 ROSA L Primary ROSA L [facility] DESTINEECOSHOCTON REGIONAL MEDICAL CENTERVerónica: Insurance:MEDICARE A [facility]EC[facility]: [facility] AND BPolicy Number: [id number] Repository [place] [id number] [place], [place] Date: [address]Crc: () 01/06/2018 Secondary ROSA L [facility] Insurance:BLUE CARD [facility]: [facility] [id number] Repository Number: [id number] e Date:
== END 2018-10-05 13:18 | disposition skilled nursing facility (03) | DRG 871 ==
LOC: ED 13:03 → PCU 13:05
PROVIDERS: Physician Assistant; Admitting Provider Hospitalist; Emergency Provider Emergency Medicine; Family Provider Internal Medicine; PCP Internal Medicine; Visit Provider Family Medicine
DX: A41.51 Sepsis due to Escherichia coli [E. coli] (principal); J96.21 Acute and chronic respiratory failure with hypoxia; I50.33 Acute on chronic diastolic (congestive) heart failure; N30.00 Acute cystitis without hematuria; E46 Unspecified protein-calorie malnutrition; L97.929 Non-pressure chronic ulcer of unspecified part of left lower leg with unspecified severity; L97.919 Non-pressure chronic ulcer of unspecified part of right lower leg with unspecified severity; J44.9 Chronic obstructive pulmonary disease, unspecified; I48.2 Chronic atrial fibrillation; Z79.01 Long term (current) use of anticoagulants; I11.0 Hypertensive heart disease with heart failure; E03.9 Hypothyroidism, unspecified; K21.9 Gastro-esophageal reflux disease without esophagitis; E66.9 Obesity, unspecified; Z68.37 Body mass index [BMI] 37.0-37.9, adult; E78.5 Hyperlipidemia, unspecified; I87.2 Venous insufficiency (chronic) (peripheral); D63.8 Anemia in other chronic diseases classified elsewhere; I25.10 Atherosclerotic heart disease of native coronary artery without angina pectoris; M06.9 Rheumatoid arthritis, unspecified; Z99.81 Dependence on supplemental oxygen; Z79.899 Other long term (current) drug therapy; Z95.5 Presence of coronary angioplasty implant and graft; Z98.84 Bariatric surgery status; I27.20 Pulmonary hypertension, unspecified
CPT/HCPCS: 36415; 51702; 71045; 71046; 74176; 80048; 80053; 81001; 83605; 83690; 83880; 84484; 85014; 85018; 85025; 85610; 85730; 86850; 86900; 86920; 86922; 87040; 87070; 87077; 87086; 87088; 87184; 87186; 87205; 87640; 87804; 93005; 93306; 94640; 94667; 94668; 97162; 97165; 97530; 97802; 99285; J7040; P9016; A4216; J1940; J2405

== ENCOUNTER → 2018-10-07 07:20 | Outpatient (REF) | payer MEDICARE, BC, SELFPAY ==
[2018-10-01 14:34] VITALS: BMI 37.0
[2018-10-07 08:21] LABS: Hematocrit 36.5 % (37-47); Hemoglobin 10.6 g/dl (12.0-15.0); Mean Corpuscular Hgb 28.6 pg (27.0-32.0); Mean Corpuscular Volume 98.6 fL (81-99); Platelet Count 238 K/mm3 (150-450); RBC Distribution Width CV 16.4 % (11.6-14.6); RBC Distribution Width SD 56.9 fl (35.1-43.9); White Blood Count 7.4 K/mm3 (4.4-11.0)
[2018-10-07 08:25] LABS: Scan Indicated on CBC? Y/N NO
[2018-10-07 08:29] LABS: Anion Gap 3 (5-15); BUN 16 mg/dL (7-18); BUN/Creat Ratio 18.4 RATIO (10-20); Calcium,Total 8.2 mg/dL (8.5-10.1); Chloride 96 mmol/L (98-107); Creatinine, Serum 0.87 mg/dL (0.55-1.02); EST Glomerular Filtration Rate 66 mL/min (>60); Est Glom Filt Rate - Afr Amer 80 mL/min (>60); Glucose 83 mg/dL (74-106); Potassium 3.9 mmol/L (3.5-5.1); Sodium Level 139 mmol/L (136-145)
== END ==
LOC: OLS.AVEB 07:20
PROVIDERS: Visit Provider Family Medicine
DX: I50.9 Heart failure, unspecified (principal)
CPT/HCPCS: 36415; 80048; 85027

== ENCOUNTER → 2018-10-10 04:00 | Outpatient (REF) | payer MEDICARE, BC, SELFPAY ==
[2018-10-01 14:34] VITALS: BMI 37.0
[2018-10-10 08:30] LABS: Hematocrit 32.7 % (37-47); Hemoglobin 9.5 g/dl (12.0-15.0); Mean Corp Hgb Conc 29.1 g/gl (32-36); Mean Corpuscular Hgb 27.9 pg (27.0-32.0); Mean Corpuscular Volume 96.2 fL (81-99); Mean Platelet Vol. 9.8 fl (6.2-12.0); Platelet Count 258 K/mm3 (150-450); RBC Distribution Width CV 16.5 % (11.6-14.6); RBC Distribution Width SD 58.1 fl (35.1-43.9); White Blood Count 6.1 K/mm3 (4.4-11.0)
[2018-10-10 08:33] LABS: Scan Indicated on CBC? Y/N NO
[2018-10-10 08:58] LABS: BNP,B-Type NATRIURETIC PEPTIDE 328.3 pg/mL (0-100)
--- OUTSIDE RECORDS SUMMARY | 2018-11-26 04:29 | XMS RPT_ITS ---
:1935 Author Organization OHIP Support Name Relationship Address Phone ASHA BELTRAN Unavailable [address] + [place] [address] R Unavailable Unavailable Unavailable R Unavailable Unavailable Unavailable ASHA BELTRAN Unavailable [address] + [place] [address] R Unavailable Unavailable Unavailable ASHA BELTRAN Unavailable [address] + [place] [address] R Unavailable Unavailable Unavailable ASHA BELTRAN Unavailable [address] + [place] [address] R Unavailable Unavailable Unavailable ASHA BELTRAN Unavailable [address] + [place] [address] R Unavailable Unavailable Unavailable ASHA BELTRAN Unavailable [address] + [place] [address] R Unavailable Unavailable Unavailable R Unavailable Unavailable Unavailable ASHA BELTRAN Unavailable [address] + [place] [address] R Unavailable Unavailable Unavailable R Unavailable Unavailable Unavailable LORRIE BELTRAN Unavailable [address] + [place] [address] ASHA BELTRAN Unavailable [address] + [place] [address] R Unavailable Unavailable Unavailable ASHA BELTRAN Unavailable [address] + [place] [address] R Unavailable Unavailable Unavailable R Unavailable Unavailable Unavailable ASHA BELTRAN Unavailable [address] + [place] [address] R Unavailable Unavailable Unavailable R Unavailable Unavailable Unavailable DEVIN, ASHA Unavailable [address] + [place] [address] R Unavailable Unavailable Unavailable R Unavailable Unavailable Unavailable DEVIN ASHA Unavailable [address] + [place] [address] R Unavailable Unavailable Unavailable R Unavailable Unavailable Unavailable DevinHeatherLorrie Unavailable [address] + [place] [address] Devin Asha Unavailable [address] + [place] [address] R Unavailable Unavailable Unavailable Devin Lorrie Unavailable [address] [facility] + [place] [address] Devin, Asha Unavailable [address] [facility] + [place] [address] R Unavailable Unavailable Unavailable Lorrie Beltran Unavailable [address] [facility] + [place] [address] Devin, Asha Unavailable [address] [facility] + [place] [address] R Unavailable Unavailable Unavailable Lorrie Beltran Unavailable [address] [facility] + [place] [address] Devin, Asha Unavailable [address] [facility] + [place] [address] R Unavailable Unavailable Unavailable Lorrie Beltran Unavailable [address] [facility] + [place] [address] Devin, Asha Unavailable [address] [facility] + [place] [address] R Unavailable Unavailable Unavailable Heather Beltranrick Unavailable [address] [facility] + [place] [address] Devin, Asha Unavailable [address] [facility] + [place] [address] R Unavailable Unavailable Unavailable Heather Beltranrick Unavailable [address] [facility] + [place] [address] Devin, Asha Unavailable [address] [facility] + [place] [address] R Unavailable Unavailable Unavailable Heather Beltranrick Unavailable [address] [facility] + [place] [address] Devin, Asha Unavailable [address] [facility] + [place] [address] R Unavailable Unavailable Unavailable Devin, Lorrie Unavailable [address] [facility] + [place] [address] Devin Asha Unavailable [address] [facility] + [place] [address] R Unavailable Unavailable Unavailable Devin, Lorrie Unavailable [address] [facility] + [place] [address] Devin Asha Unavailable [address] [facility] + [place] [address] R Unavailable Unavailable Unavailable Devin Lorrie Unavailable [address] [facility] + [place] [address] Devin Asha Unavailable [address] [place] [address] + [place] [address] R Unavailable Unavailable Unavailable Heather Beltranrick Unavailable [address] [facility] + [place] [address] Devin Asha Unavailable [address] [facility] + [place] [address] R Unavailable Unavailable Unavailable Heather Beltranrick Unavailable [address] [facility] + [place] [address] Devin Asha Unavailable [address] [place] [address] + [place] [address] R Unavailable Unavailable Unavailable Heather Beltranrick Unavailable [address] [facility] + [place] [address] Devin Asha Unavailable [address] [place] [address] + [place] [address] R Unavailable Unavailable Unavailable DEVIN, SHERON Unavailable [address] [facility] + [place] [address] DEVIN, SHERON Unavailable Unavailable + DEVIN, SHERON Unavailable Unavailable + DEVIN, LORRIE Unavailable Unavailable + DEVIN, LORRIE Unavailable Unavailable + DEVIN, SHERON Unavailable [address] [facility] + [place] [address] DEVIN, SHERON Unavailable Unavailable + DEVIN, SHERON Unavailable Unavailable + DEVIN, LORRIE Unavailable Unavailable + DEVIN, LORRIE Unavailable Unavailable + DEVIN, SHERON Unavailable [address] [facility] + [place] [address] DEVIN, SHERON Unavailable Unavailable + DEVIN, SHERON Unavailable Unavailable + DEVIN, LORRIE Unavailable Unavailable + DEVIN, LORRIE Unavailable Unavailable + DEVIN, SHERON Unavailable [address] [facility] + [place] [address] DEVIN, SHERON Unavailable Unavailable + DEVIN, SHERON Unavailable Unavailable + DEVIN, LORRIE Unavailable Unavailable + DEVIN, LORRIE Unavailable Unavailable + DEVIN, SHERON Unavailable [address] [facility] + [place] [address] DEVIN, SHERON Unavailable Unavailable + DEVIN, SHERON Unavailable Unavailable + DEVIN, LORRIE Unavailable Unavailable + DEVIN, LORRIE Unavailable Unavailable + Devin, Lorrie Unavailable [address] [facility] + [place] [address] Devin, Asha Unavailable [address] [facility] + [place] [address] R Unavailable Unavailable Unavailable Devin, Lorrie Unavailable [address] [facility] + [place] [address] Devin, Asha Unavailable [address] [facility] + [place] [address] R Unavailable Unavailable Unavailable Devin, Lorrie Unavailable [address] [facility] + [place] [address] Devin, Asha Unavailable [address] [facility] + [place] [address] R Unavailable Unavailable Unavailable Devin, Lorrie Unavailable [address] [facility] + [place] [address] Devin, Asha Unavailable [address] + [place] [address] R Unavailable Unavailable Unavailable Devin, Lorrie Unavailable [address] + [place] [address] Devin, Asha Unavailable [address] + [place] [address] R Unavailable Unavailable Unavailable Devin, Lorrie Unavailable [address] [facility] + [place] [address] Devin, Asha Unavailable [address] + [place] [address] R Unavailable Unavailable Unavailable Devin, Lorrie Unavailable [address] [facility] + [place] [address] Devin, Asha Unavailable [address] [facility] + [place] [address] R Unavailable Unavailable Unavailable Devin, Lorrie Unavailable [address] [facility] + [place] [address] Devin, Asha Unavailable [address] [facility] + [place] [address] R Unavailable Unavailable Unavailable Devin, Lorrie Unavailable [address] [facility] + [place] [address] Devin, Asha Unavailable [address] [facility] + [place] [address] R Unavailable Unavailable Unavailable Devin, Lorrie Unavailable [address] [facility] + [place] [address] Devin, Asha Unavailable [address] [facility] + [place] [address] R Unavailable Unavailable Unavailable Devin, Lorrie Unavailable [address] [facility] + [place] [address] Devin, Asha Unavailable [address] [facility] + [place] [address] R Unavailable Unavailable Unavailable Devin, Lorrie Unavailable [address] + [place] [address] Devin, Asha Unavailable [address] [facility] + [place] [address] R Unavailable Unavailable Unavailable Devin, Lorrie Unavailable [address] [facility] + [place] [address] Devin Asha Unavailable [address] [facility] + [place] [address] R Unavailable Unavailable Unavailable Heather Beltranrick Unavailable [address] [facility] + [place] [address] Devin Asha Unavailable [address] [facility] + [place] [address] R Unavailable Unavailable Unavailable Heather Beltranrick Unavailable [address] [facility] + [place] [address] Devin Asha Unavailable [address] [facility] + [place] [address] R Unavailable Unavailable Unavailable Heather Beltranrick Unavailable [address] [facility] + [place] [address] Devin Asha Unavailable [address] [facility] + [place] [address] R Unavailable Unavailable Unavailable DEVIN, SHERON Unavailable [address] [place] [address] + [place] [address] DEVIN, SHERON Unavailable Unavailable + DEVIN, SHERON Unavailable Unavailable + DEVIN, LORRIE Unavailable Unavailable + DEVIN, LORRIE Unavailable Unavailable + DEVIN, SHERON Unavailable [address] [place], [place] [address] + [place] [address] DEVIN, SHERON Unavailable Unavailable + DEVIN, SHERON Unavailable Unavailable + DEVIN, LORRIE Unavailable Unavailable + DEVIN, LORRIE Unavailable Unavailable + DEVIN, SHERON Unavailable [address] [place], [place] [address] + [place] [address] DEVIN, SHERON Unavailable Unavailable + DEVIN, LORRIE Unavailable Unavailable + DEVIN, LORRIE Unavailable Unavailable + DEVIN, SHERON Unavailable Unavailable + Care Team Providers Name Role Phone PATY DAVISON, DR. BLACKWELL Primary Care Unavailable ANA DAVISON MD. CARLA Yan Consulting Unavailable ANA DAVISON, . CARLA Yan Admitting Unavailable ANA DAVISON, . CARLA Yan Attending Unavailable PATY RUIZ., DR. BLACKWELL Primary Care Unavailable NEREIDA RUIZ, JUSTIN Yan Admitting Unavailable NEREIDA RUIZ, JUSTIN Yan Attending Unavailable ANA DAVISON, . CARLA Yan Consulting Unavailable JUSTIN PADRON MD Consulting Unavailable Chelsey Clay MD Attending Unavailable PATY RUIZ., DR. BLACKWELL Primary Care Unavailable JUSTIN PADRON MD Attending Unavailable PATY RUIZ., DR. BLACKWELL Primary Care Unavailable ANA DAVISON, . CARLA Yan Admitting Unavailable JUSTIN PADRON MD Consulting Unavailable JUSTIN TARIQ Consulting Unavailable FLOWER TREVINO MD Attending Unavailable PATY RUIZ., DR. BLACKWELL Primary Care Unavailable FLOWER TREVINO MD Attending Unavailable PATY RUIZ., DR. BLACKWELL Primary Care Unavailable FLOWER TREVINO MD Admitting Unavailable SPRING LARKIN MD, BA. Consulting Unavailable STEFANIE SPEARS MD Consulting Unavailable STEFANIE SPEARS MD Attending Unavailable PATY RUIZ., DR. BLACKWELL Primary Care Unavailable YUMI BRAVO MD Consulting Unavailable BENNIE NGUYEN DO Consulting Unavailable STEFANIE SPEARS MD Attending Unavailable STEFANIE SPEARS MD Referring Unavailable PATY RUIZ., DR. BLACKWELL Primary Care Unavailable Bina, Maicol Attending Unavailable Mani Newman [facility] Unavailable Koram, Yadi Naina Admitting Unavailable Koram, Yadi Naina Attending Unavailable Koram, Yadi Naina Referring Unavailable Carla Flor Consulting Unavailable Koram, Yadi Naina Admitting Unavailable Koram, Yadi Naina Attending Unavailable Koram, Aydi Naina Referring Unavailable Mani Newman [facility] Unavailable Koram, Yadi Naina Consulting Unavailable Saw Sorensen Attending Unavailable Edu, Saw Attending Unavailable Edu, Saw Attending Unavailable Edu, Saw Attending Unavailable Edu, Saw Attending Unavailable Maicol Hawk Attending Unavailable Kee, Brody Chi Referring Unavailable Bina, Maicol Attending Unavailable Bina, Maicol Attending Unavailable Bina, Maicol Attending Unavailable Bina, Maicol Attending Unavailable Bina, Maicol Attending Unavailable Ashelfah, Ghasem Admitting Unavailable Newman, Mani Primary Care Unavailable David, Jamar Consulting Unavailable White, Fatmata Attending Unavailable Arevalo, Abdiel Consulting Unavailable White, Fatmata Consulting Unavailable Ashelfah, Ghasem Admitting Unavailable Abdiel Arevalo Attending Unavailable Newman, Mani Primary Care Unavailable David, Jamar Consulting Unavailable Arevalo, Abdiel Consulting Unavailable White, Fatmata Consulting Unavailable Ashelfah, Ghasem Admitting Unavailable Newman, Mani Primary Care Unavailable David, Jamar Consulting Unavailable White, Fatmata Attending Unavailable Arevalo, Abdiel Consulting Unavailable White, Fatmata Consulting Unavailable Ashelfah, Ghasem Admitting Unavailable Newman, Mani Primary Care Unavailable David, Jamar Consulting Unavailable White, Fatmata Attending Unavailable White, Fatmata Consulting Unavailable Ashelfah, Ghasem Admitting Unavailable Newman, Mani Primary Care Unavailable White, Fatmata Consulting Unavailable White, Fatmata Attending Unavailable Ashelfah, Ghasem Admitting Unavailable Ashelfah, Ghasem Attending Unavailable Newman, Mani Primary Care Unavailable Ashelfah, Ghasem Consulting Unavailable Newman, Mani Primary Care Unavailable Ashelfah, Ghasem Admitting Unavailable White, Fatmata Attending Unavailable David, Jamar Consulting Unavailable Garrick Arevaloel Consulting Unavailable Newman, Mani Primary Care Unavailable Jay Nicholas Attending Unavailable Kee, Brody Chi Admitting Unavailable Kee, Brody Chi Attending Unavailable Newman, Mani Primary Care Unavailable Chacho, Carla Consulting Unavailable Koram, Yadi Naina Admitting Unavailable Koram, Yadi Naina Attending Unavailable Koram, Yadi Naina Referring Unavailable Newman, Mani Primary Care Unavailable Chacho, Carla Consulting Unavailable Koram, Yadi Naina Consulting Unavailable Koram, Yadi Naina Admitting Unavailable Koram, Yadi Naina Attending Unavailable Koram, Yadi Naina Referring Unavailable Newman, Mani Primary Care Unavailable Chacho, Carla Consulting Unavailable Koram, Yadi Naina Consulting Unavailable Edu, Saw Attending Unavailable Petriandrewa, Saw Attending Unavailable Petrilla, Saw Attending Unavailable Petrilla, Saw Attending Unavailable Petrilla, Saw Attending Unavailable Petrilla, Saw Attending Unavailable Petrilla, Saw Attending Unavailable Petrilla, Saw Attending Unavailable Bina, Maicol Attending Unavailable Curran, Maicol Attending Unavailable Curran, Maicol Attending Unavailable Basil Fermin Attending Unavailable Ashelfah, Ghasem Referring Unavailable Curran, Maicol Attending Unavailable Koram, Yadi Naina Admitting Unavailable Koram, Yadi Naina Attending Unavailable Koram, Yadi Naina Referring Unavailable NewmanMani Primary Care Unavailable Koram, Yadi Naina Consulting Unavailable Koram, Yadi Naina Admitting Unavailable Koram, Yadi Naina Attending Unavailable Koram, Yadi Naina Referring Unavailable Newman, Mani Primary Care Unavailable Koram, Yadi Naina Consulting Unavailable Maicol Curran Attending Unavailable Tray Riggs Attending Unavailable Tray Riggs Referring Unavailable Newman, Victor Primary Care Unavailable LUIS SIMONS, (TESTING COORDINATOR) Attending Unavailable NEWMAN, JACY Referring Unavailable EHREN, LUIS Olivo, (TESTING COORDINATOR) Attending Unavailable NEWMAN, JACY Referring Unavailable SINGAM, HAREESH Admitting Unavailable KENYA WILSON () Attending Unavailable LUIS SIMONS, (TESTING COORDINATOR) Attending Unavailable NEWMAN, JACY Referring Unavailable ASHWINI, COREY E Attending Unavailable ASHWINI, COREY E Referring Unavailable ASHWINI, COREY E Referring Unavailable EHRENLUIS, (TESTING COORDINATOR) Attending Unavailable NEWMAN, JACY Referring Unavailable EHRENLUIS, (TESTING COORDINATOR) Referring Unavailable ASHWINI, COREY E Attending Unavailable ASHWINI, COREY E Referring Unavailable EHREN, LUIS Olivo, (TESTING COORDINATOR) Attending Unavailable LUIS SIMONS, (TESTING COORDINATOR) Referring Unavailable EHRLUIS HAND, (TESTING COORDINATOR) Attending Unavailable NEWMAN, JACY Referring Unavailable EHRENLUIS, (TESTING COORDINATOR) Attending Unavailable DICKSON CLEARYRAMLULA Admitting Unavailable LIMPEROS, CHINTAN Consulting Unavailable TONY BARRYEEM Attending Unavailable LUIS SIMONS, (TESTING COORDINATOR) Referring Unavailable XAVIER MERCADO Admitting Unavailable CHELSEY CLAY E Referring Unavailable LIMPEROS, CHINTAN Consulting Unavailable MADONNA LEE () Attending Unavailable LUIS SIMONS, (TESTING COORDINATOR) Attending Unavailable ROSELYN, CHINTAN Referring Unavailable LUIS SIMONS, (TESTING COORDINATOR) Attending Unavailable YARIPERYOLY, CHINTAN Referring Unavailable EHRLUIS HAND, (TESTING COORDINATOR) Attending Unavailable LIMPEROS, CHINTAN Referring Unavailable LUIS SIMONS (TESTING COORDINATOR) Attending Unavailable CHINTAN DEMPSEY Referring Unavailable MARAL CHANEY Admitting Unavailable SHOLA FLORES Attending Unavailable HEATHER LYNN Consulting Unavailable LUIS SIMONS (TESTING COORDINATOR) Attending Unavailable COREY MCKEON Attending Unavailable COREY MCKEON Referring Unavailable Paty RUIZ, Mani Primary Care Unavailable COREY MCKEON Attending Unavailable COREY MCKEON Referring Unavailable Paty RUIZ, Mani Primary Care Unavailable COREY MCKEON Referring Unavailable Paty RUIZ, Mani Primary Care Unavailable COREY MCKEON Attending Unavailable Paty RUIZ, Mani Primary Care Unavailable COREY MCKEON Referring Unavailable NEWMAN, MANI Hartmann Referring Unavailable NEWMAN, MANI Hartmann Attending Unavailable NEWMAN, MANI Hartmann Referring Unavailable NEWMAN, MANI Hartmann Referring Unavailable LILI MCNAIR Attending Unavailable LUIS SIMONS (TESTING COORDINATOR) Referring Unavailable TESTRATY LOZANO Attending Unavailable TESTRATY LOZANO Referring Unavailable COREY MCKEON E Referring Unavailable NEWMAN, JACY Referring Unavailable ASHWINI COREY E Referring Unavailable NEWMAN, MANI Hartmann Attending Unavailable JINA NY (TESTING COORDINATOR) Attending Unavailable ASHWINI, COREY E Referring Unavailable NEWMAN, JACY Referring Unavailable TY MILLS Attending Unavailable NEWMAN, MANI Hartmann Referring Unavailable NEWMAN, MANI Hartmann Attending Unavailable NEWMAN, MANI Hartmann Referring Unavailable COREY MCKEON Referring Unavailable TESTRAKETY Attending Unavailable TESTRATY LOZANO Referring Unavailable LULÚ MCKEONNETH E Attending Unavailable ASHWINI, COREY E Referring Unavailable NEWMAN, JACY Referring Unavailable NEWMAN, MANI Hartmann Attending Unavailable KEE, BRODY CHI Referring Unavailable TESTRAKE, TY Attending Unavailable NEWMAN, MANI Hartmann Referring Unavailable PROBLEMS PROBLEMS DATE TYPE CONDITION / CODE ATTENDING STATUS SOURCE Unknown D64.9 - Anemia, Maicol Curran Active [facility] unspecified / Community D64.9(ICD-10) Hospital Repository Unknown J44.9 - Chronic Maicol Curran Active [facility] 9 obstructive pulmonary Community disease, unspecified / Hospital J44.9(ICD-10) Repository Unknown I10 - Essential Maicol Curran Active [facility] (primary) hypertension Community / I10(ICD-10) Hospital Repository Unknown E78.5 - Maicol Curran Active [facility] Hyperlipidemia, Community unspecified / Hospital E78.5(ICD-10) Repository Unknown I50.9 - Heart failure, Maicol Curran Active [facility] unspecified / Community I50.9(ICD-10) Hospital Repository Active Chronic kidney NA Active [facility] disease, stage 3 Clinic Main (moderate) / [facility] N18.3(ICD-10) Repository Active Unspecified diastolic NA Active [facility] (congestive) heart Clinic Main failure / [facility] I50.30(ICD-10) Repository Active Chronic atrial NA Active [facility] fibrillation / Clinic Main I48.2(ICD-10) [facility] Repository Active Hypothyroidism, NA Active [facility] unspecified / Clinic Main E03.9(ICD-10) [facility] Repository Active Polyneuropathy, NA Active [facility] unspecified / Clinic Main G62.9(ICD-10) [facility] Repository Unknown I48.2 - Chronic atrial [place], Active [facility] fibrillation / Maicol Community I48.2(ICD-10) Hospital Repository Unknown R94.31 - Abnormal [place], Active [place] [facility] 8 electrocardiogram [facility] [ECG] [EKG] / Hospital R94.31(ICD-10) Repository Unknown I13.0 - Hypertensive [place], Active [place] [facility] [facility] heart and chronic [facility] kidney disease with Hospital heart failure and Repository stage 1 through stage 4 chronic kidney disease, or unspecified chronic kidney disease / I13.0(ICD-10) Unknown 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, 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 / I25.10(ICD-10) Unknown R53.81 - Other malaise Kee, Brody Chi Active [facility] / R53.81(ICD-10) [facility] Repository Unknown R13.12 - Dysphagia, Kee, Brody Chi Active [place] [facility] 8 oropharyngeal phase / Community R13.12(ICD-10) Hospital Repository Unknown L97.929 - Non-pressure Kee, Brody Chi Active [facility] 8 chronic ulcer of Community unspecified part of Hospital left lower leg with Repository unspecified severity / L97.929(ICD-10) Active Hyperkalemia / [place], Active [facility] 8 E87.5(ICD-10) [facility] Other [facility] Repository Active Cellulitis of left KAILASAM, Active [facility] lower limb / [facility] Clinic Other L03.116(ICD-10) [facility] Repository Active Cellulitis of right KAILASAM, Active [facility] lower limb / [facility] Clinic Other L03.115(ICD-10) [facility] Repository Active Unspecified open KAILASAM, Active [facility] wound, right lower [facility] Clinic Other leg, initial encounter [facility] / S81.801A(ICD-10) Repository Active Other specified [facility] status / Z78.9(ICD-10) [facility] Clinic Other [facility] Repository Active Other specified KAILASAM, Active [facility] 8 abnormal findings of [facility] Other blood chemistry / [facility] R79.89(ICD-10) Repository Active Abnormal findings on KAILASA, Active [facility] 8 diagnostic imaging of [facility] Other other specified body [facility] structures / Repository R93.8(ICD-10) Active Encounter for Karey LEE 8 therapeutic drug level [facility] STEVENSON) Clinic Other monitoring / [facility] 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[facility]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 8 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 [facility] STEVENSON) Clinic Other / Z79.01(ICD-10) [facility] Repository Active Non-pressure chronic AHMED, 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[facility] ulcer of unspecified Clinic Other part of right lower [facility] leg with fat layer Repository exposed / L97.912(ICD-10) Active Other injury of AHMED, 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[facility] 8 unspecified body Clinic Other region, initial [facility] encounter / Repository T14.8XXA(ICD-10) Active Local infection of the LIZA BARRY Active [facility] skin and subcutaneous Clinic Other tissue, unspecified / [facility] L08.9(ICD-10) Repository Active Acute kidney failure, LIZA BARRY Active [facility] unspecified / Clinic Other N17.9(ICD-10) [facility] Repository Active Lymphedema, not NA Active [facility] elsewhere classified / Clinic Main I89.0(ICD-10) [facility] Repository Active Chronic diastolic ASHWINI, Active [facility] 8 (congestive) heart [facility] Clinic Other failure / [facility] I50.32(ICD-10) Repository Active Varicose veins of LUIS SIMONS [facility] 8 right lower extremity J, (TESTING COORDINATOR) Clinic Other with ulcer of [facility] unspecified site / Repository I83.019(ICD-10) Active Varicose veins of NADER SIMONSCELYN [facility] 8 right lower extremity J, (TESTING COORDINATOR) Clinic Other with other [facility] complications / Repository I83.891(ICD-10) Active Non-pressure chronic EHRENNADERLUIS [facility] 8 ulcer of unspecified J, (TESTING COORDINATOR) Clinic Other part of right lower [facility] leg with unspecified Repository severity / L97.919(ICD-10) Active Edema, unspecified / NADER SIMONSCELYN Active [facility] 8 R60.9(ICD-10) J, (TESTING COORDINATOR) Clinic Other [facility] Repository Active Type 2 diabetes NA Active [facility] 8 mellitus with Clinic Other hyperosmolarity [facility] without nonketotic Repository hyperglycemic-hyperosm olar coma (NKHHC) / E11.00(ICD-10) Active Atherosclerotic heart ASHWINI Active [place] [facility] disease of [place] [facility] Clinic Other coronary artery [place] without angina Repository pectoris / I25.10(ICD-10) Active Chronic systolic ASHWINI, Active [place] [facility] (congestive) heart [facility] Clinic Other failure / [place] I50.22(ICD-10) Repository Admitting Unknown / UNK(Unknown) ASHWINI Active [facility] 8 diagnosis [facility] Repository Active Heart failure, THUESTAD, KENYA Active [place] [facility] unspecified / A (MD) Clinic Other I50.9(ICD-10) [place] Repository Active Acute on chronic THUESTAD, KENYA Active [place] [facility] diastolic (congestive) A () Clinic Other heart failure / [place] I50.33(ICD-10) Repository Active Essential (primary) THUESTAD, KENYA Active [place] [facility] hypertension / A () Clinic Other I10(ICD-10) [place] Repository Active Unknown / UNK(Unknown) NIKKIEPEACE LUIS Active [place] [facility] J, (TESTING COORDINATOR) Clinic Other [place] Repository PROCEDURES PROCEDURES No Procedure Records FoundRESULTS RESULTS PROGRESS Observed: 11/16/2018 Status: COMPLETED Source: [place] 9:08 AM [facility] REPOSITORY HNO ID: [id number] Author: Maritza Howe Service: (none) Author Type: Registered Nurse Type: Progress Notes Filed: 11/16/2018 9:09 AM Note Text: PRIMARY CARE COORDINATION QUICK NOTE Provider Action/FYI Pt at the [facility] on 11/10/18 Patient identified by name and date . Pt at the [facility] Observed: 11/16/2018 Status: COMPLETED Source: [place] 12:00 AM [facility] REPOSITORY Patient Outreach (INTMWS) ROSA BELTRAN ([id number]) 1935 F Date Time Provider Department 11/16/18 MARITZA RUSSELL During your visit today, we recorded the following information about you: Maritza Tian RN 11/16/2018 9:09 AM Signed PRIMARY CARE COORDINATION QUICK NOTE Provider Action/FYI Pt at the [facility] on 11/10/18 Patient identified by name and date . Pt at the [facility] Allergies As of Date: 11/16/2018 (No Known Allergies) Date Reviewed: 06/27/2018 Reviewed by: Belle Ignacio RN - Fully Assessed Prescriptions as of 11/16/2018 Sig: MENTHOL 0.44 %-ZINC OXIDE 20.* Apply [...] once d* Problem List As Of Date 11/16/2018 Noted Resolved Gastroesophageal reflux disease without esophag*INVALID [...] FOR* Encounter Status:Closed by MARITZA HOWE on 11/16/18 PROGRESS Observed: 11/15/2018 Status: COMPLETED Source: [place] 9:50 AM [facility] REPOSITORY HNO ID: [id number] Author: Volodymyr Gilbert Service: (none) Author Type: Electrician Manager Type: Progress Notes Filed: 11/15/2018 9:50 AM Note Text: I called Emilee at [facility] and she informed me that [place] on 11/10/2018. Someone changed her PCP the day prior to her passing away. PROGRESS Observed: 11/15/2018 Status: COMPLETED Source: [place] 9:45 AM [facility] REPOSITORY HNO ID: [id number] Author: Volodymyr Gilbert Service: (none) Author Type: Electrician Manager Type: Progress Notes Filed: 11/15/2018 9:51 AM Note Text: Rosa 11/10/18. LOITOUTREACH Observed: 11/15/2018 Status: COMPLETED Source: [place] 12:00 AM [facility] REPOSITORY Patient Outreach (INTMWS) ROSA BELTRAN ([id number]) 1935 F Date Time Provider Department 11/15/18 VOLODYMYR GILBERT (COMPUTER FORWARDING SYSTEM MARKUP CLERK) INTMWS During your visit today, we recorded the following information about you: Volodymyr Gilbert CMA 11/15/2018 9:50 AM Signed I called Emilee at [facility] and she informed me that Rosa on 11/10/2018. Someone changed her PCP the day prior to her passing away. Allergies As of Date: 11/15/2018 (No Known Allergies) Date Reviewed: 06/27/2018 Reviewed by: Belle Ignacio RN - Fully Assessed Prescriptions as of 11/15/2018 Sig: MENTHOL 0.44 %-ZINC OXIDE 20.* Apply [...] once d* Problem List As Of Date 11/15/2018 Noted Resolved Gastroesophageal reflux disease without esophag*INVALID [...] Anemia [D64.9] INVALID FOR* Encounter Status:Closed by VOLODYMYR GILBERT CMA on 11/15/18 PROGRESS Observed: 11/08/2018 Status: COMPLETED Source: [place] 9:00 AM [facility] REPOSITORY HNO ID: [id number] Author: Volodymyr Gilbert Service: (none) Author Type: Electrician Manager Type: Progress Notes Filed: 11/08/2018 9:02 AM Note Text: Spoke with Emilee at [facility]. 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 I will call back x 1 week for another update. DISCHARGE SUMMARY Observed: 11/07/2018 Status: F Source: [facility] 2:31 PM [facility] REPOSITORY [facility] Medical Records Department [address] [address] Discharge Summary 11/07/18 1025 MR#: [id number] Acct: [id number] Name: ROSA BELTRAN Rep #: [id number] : 1935 82 From: Yadi Doshi MD PCP: Maicol Curran MD Status: DIS IN Y Location: [place] [address] Discharge Date and Diagnosis Date of Admission: 11/03/18 Date of Discharge: 11/07/18 - Primary Discharge Diagnosis Active and Suspected Problems Pneumonia (Acute) acute on chronic hypoxic respiratory failure due to pneumonia - Secondary Discharge Diagnosis Chronic Problems Coronary [...] Course and Treatment Imaging Results: Diagnostic Data Chest X-Ray 11/03/18 10:39 IMPRESSION: Cardiomegaly and persistent evidence for pulmonary congestion and airspace consolidation. Electronically Signed: Susan Buenrostro MD at 11:26 EST , Service support , Consultations 11/03/18 13:59 Consult: Onc/Wound/drop press hand Routine Comment: Reason for Consult:: wound to R leg ID- Dr Flor Operations: None Procedures: None Summary of Care Provided: The patient is a 82 year old F with an extensive PMH as listed below; she was admitted from a senior care after she was noted to be short of breath and oxygen level was checked and she was noted to be in the 70s. Oxygen level came up to the 90s after she was put on 4 L of oxygen. She was brought in to the ED where she was noted to be febrile and tachypneic as well. She admitted to being short of breath and feeling her heart racing. She also admitted to a fever but denied any chills. Patient was quite lethargic in the ED but was able to answer questions. In the ED she was noted to be febrile with temperature peaking at 102.1 Fahrenheit and she was tachypneic as well. She was on 4 L of oxygen by nonrebreather mask at time of review. CBC does show white cell count of 25 and hemoglobin of 9.4. Platelets were normal. BMP showed creatinine of 1.19 and bicarb of 33. Chest x-ray showed cardiomegaly and persistent evidence for pulmonary congestion and airspace consolidation. UA showed evidence of UTI. She is being admitted to manage for acute hypoxic respiratory failure and sepsis due to health associated pneumonia and UTI as well as acute systolic CHF exacerbation. She was diuresedwith IV lasix and started on IV vancomycin and zosyn. White cell count trended down leukocytosis resolved. She developed AK I with creatinine trended up to 1.5. Therefore diuresis was stopped and she was started on gentle hydration with IV fluid. She required 4 L of oxygen was in the hospital. Urine culture Citrobacter youngae and chronic leg ulcers cultured Proteus, Acinectobacter and MRSA. ID was consulted and she was transitioned from IV vancomycin and IV zosyn to PO Omnicef and PO doxycycline till 11/10/17. Patient's Cr trended down to 1.25. she was discharged back to her SNF on 11/07/18 on PO Omnicef and PO Doxycycline. She is to follow up with her PCP. Patient seen and examined prior to discharge. She was confused and just mumbling. Unable to do review of systems on account of confusion. o/e: Vital Signs Height 5 ft 4 in Weight: 248 lb 10.903 oz [] General: Alert, drowsy, lethargic HEENT: Atraumatic, PERRLA, - - erythema of left eye has resolved. Oral: Dry Mucosa Neck: Supple, No JVD, Negative Carotid Bruits Lungs: - -few coarse crackles bibasally. Lungs have improved significantly since admission. on 4L of oxygen Cardiovascular: Regular rate, Regular Rhythm, Normal S1, Normal S2, No murmurs Abdomen: Bowel Sounds Present, Soft, Non Tender, Non-Distended, No Hepato-splenomegaly Extremities: - - both LEs wrapped in ANKIT bandage; has chronic LE ulcers. Skin: No rashes, - - as under extremities Musculoskeletal: No Tenderness to Palpation of Joints or Extremities Lymphatic: No Cervical, Supraclavicular, or Inguinal Adenopathy Neurological: Cranial nerves II-XII grossly intact Psych/Mental Status: confused Plan as described above. She is to continue with oxygen in the SNF, to titrate to baseline of 2-4L to maintain sats>92%. - Physical Exam Vital Signs Temp Pulse Resp BP Pulse Ox 97.4 F L 77 18 105/79 96 11/07/18 09:48 11/07/18 09:48 11/07/18 09:48 11/07/18 09:48 11/07/18 09:48 Oxygen Flow Rate (L/min) 4 Oxygen Delivery Method Nasal Cannula Weight: 248 lb 10.903 oz Body Mass Index (BMI) 41.3 Intake and Output for Last 24 Hours Intake Total 1848 / 1848 1650 / 1650 Output Total 875 / 875 825 / 825 150 / 150 Balance 973 / 973 825 / 825 -150 / -150 Microbiology Past 72 Hours 11/03/18 12:00 Gram Stain - Final Wound - Leg, Right Wound Culture - Final Laboratory Tests Past 24 Hrs WBC 7.0 RBC 3.35 L Hgb 9.2 L Hct 32.6 L MCV 97.3 MCH 27.5 MCHC 28.2 L Discharge Diet: Low fat/ Low Cholesterol Weight Bearing Status: Weight bearing as tolerated Call your doctor if you observe: Fever of 101 or Higher, Shortness of breath, Dizziness, Swelling in the ankles Home Medications: Medications to take at Discharge Acetaminophen [Pain Relief Extra Strength] 1,000 mg PO Q8H PRN PRN 04/25/17 Aspirin [Aspir-Low] 81 mg PO DAILY 04/25/17 Gabapentin [Neurontin] 300 mg PO BIDCM 04/25/17 Levothyroxine [Synthroid] 100 mcg PO DAILY@0600 08/01/17 Ondansetron [Zofran Odt] 4 mg PO Q8H PRN PRN #90 tab 06/14/18 Pantoprazole Sodium [Protonix] 20 mg PO DAILY tablet 06/14/18 Apixaban [Eliquis] 5 mg PO BID 10/01/18 Ergocalciferol (Vitamin D2) [Drisdol] 50,000 unit PO QWEEK 10/01/18 Hydrocodone Bitart/Apap 5-325 [Ten Sleep 5/325] 1 tablet PO Q8H PRN PRN 10/01/18 L. Rhamnosus GG/Inulin [Culturelle Capsule] 1 each PO BID 10/01/18 Multivitamin [Multiple Vitamins] 1 each PO DAILY 10/01/18 Polyethylene Glycol 3350 [Miralax] 17 gm PO DAILY 10/01/18 Temazepam [Restoril] 15 mg PO QHS 10/01/18 Menthol/Lanolin/Calamine/Znox [Calmoseptine Ointment] 1 applic TOPICAL BID tube 10/05/18 Ipratropium/Albuterol Sulfate [Duoneb] 3 ml INHALATION Q6H PRN PRN 11/01/18 Bisacodyl [Biscolax] 10 mg RC DAILY PRN 11/03/18 Furosemide [Lasix] 40 mg PO BID 11/03/18 Magnesium Hydroxide [Milk Of Magnesia] 30 ml PO DAILY PRN 11/03/18 Melatonin 4 mg PO QHS PRN 11/03/18 Cefdinir [Omnicef [equiv]] 300 mg PO Q12 #6 capsule 11/07/18 Doxycycline 100 mg PO BID #6 capsule 11/07/18 Following Prescrptions Were Given to Patient: Cefdinir [Omnicef [equiv]] 300 mg PO Q12 #6 capsule Doxycycline 100 mg PO BID #6 capsule Primary Care Physician: Maicol Curran MD [Primary Care Provider] - Please follow up with your Primary Care Physician in: one week Disposition: Care Home facility Minutes spent on discharge:: 40 Patient Condition:: Stable Medical Necessity - Tobacco Use Smoking Status: Unknown if ever smoked Meaningful Use Info Meaningful Use Diagnoses (Choose all that apply): None applicable, CHF - CHF ANKIT/ARB ordered at discharge?: No Reason ANKIT/ARB not ordered?: Worsening renal dysfunctn Documented LVEF (%): 65 Code Visit Inpatient E AND M: [id number] Disch Hosp 11/07/18 1431 <Electronically signed by Yadi Doshi MD> Date Yadi Doshi MD Cosigner Signature (if applicable): Date CC: Yadi Dohsi MD; Maicol Curran MD; Mani Newman MD Signed TRANSFER TO [facility] Observed: 11/07/2018 Status: F Source: [facility] 10:25 AM [facility] REPOSITORY [facility] Medical Records Department [address] [place] [address] Transfer to [facility] Care MR#: [id number] Acct: [id number] Name: ROSA BELTRAN Giselle Rep #: [id number] : 1935 82 From: Yadi Doshi MD PCP: Maicol Curran MD Status: ADM IN [place] (Patient) (Health Ins. Claim No.) (Day of Discharge to Facility) Certification of patient admission REQUIRED AT TIME OF ADMISSION. I CERTIFY THAT POST-HOSPITAL ECF SERVICES ARE REQUIRED TO BE GIVEN ON AN IN-PATIENT BASIS BECAUSE OF THE ABOVE NAMED PATIENT'S NEED FOR CORRECTION CARE ON A CONTINUING BASIS FOR THE CONDITION(S) FOR WHICH HE/SHE WAS RECEIVING IN-PATIENT HOSPITAL SERVICES PRIOR TO HIS/HER TRANSFER TO [facility]. 11/07/18 1023 <Electronically signed by Yadi Doshi MD> Date Yadi Doshi MD ADDENDUM by Yadi Doshi MD on 11/07/18 at 1025 Code Visit Patient discharged to Care Home Facility- [facility] 11/07/18 1025 <Electronically signed by Yadi Doshi MD> Date Yadi Doshi MD cc: Maicol Curran MD; Carla Flor MD; Mani Newman MD * Signed - Diet 11/03/18 13:26 Diet: Cardiac/Low Cholesterol Food consistency:: Regular Liquid Consistency:: Regular/Thin - Routine Orders/Code Status Enema Type: Fleetz Enema Frequency: Daily PRN Suppository Type: Dulcolax 10mg Suppository Frequency: Daily PRN O2 Liters per Minute: 2-4 O2 Frequency: Continuous Keep PO Greater than or Equal to (%): 92 - Wound(s) Coccyx Wound Type: Skin Tear right posterolateral lower leg Wound Type: nonhealing stasis ulcer Dressing Change: AntiMicrobial (Aquacel AG, etc) - Therapies Weight Bearing: Weight bearing as tolerated Physical Therapy: Eval and Treat Occupational Therapy: Eval and Treat - Allergies/Procedures Done in Hospital Allergies/Adverse Reactions: Allergies No Known Allergies Allergy (Verified 06/05/18 13:06) Procedures: None - Type of Care/Length of Stay Estimated LOS: More Than 30 Days Type of Care Needed: Skilled Rehab Potential: Fair Prognosis: Fair - Additional Orders/Day of Discharge Day of Discharge: 11/07/18 - Dietary and Speech Recommendations Dietitian Recommendations/Changes: Rec diet change to Cardiac / low sodium w/ fluid restriction as needed if PO improves at meals. Rec Carlo bid to help w/ skin healing. - Follow Up Care Primary Care Physician: Maicol Curran MD [Primary Care Provider] - Please follow up with your Primary Care Physician in: one week 11/07/18 1023 <Electronically signed by Yadi Doshi MD> Date Yadi Doshi MD CC: Maicol Curran MD; Carla Flor MD; Mani Newman MD Signed 12 LEAD ELECTROCARDIOGRAM Observed: 11/07/2018 Status: F Source: [facility] 8:46 AM [facility] REPOSITORY [facility] Cardiovascular Services [address] [place] [address] 12 Lead EKG 11/03/18 1048 MR#: [id number] Acct: [id number] Name: ROSA BELTRAN Rep #: [id number] : 1935 82 From: Basil Fermin MD Attending Dr: Yadi Doshi MD Status: ADM IN Ordering Dr: Jay Nicholas MD Date: 11/03/18 Location: [facility] Sex: F N Admitted: 11/03/18 Test Reason : ALTERED LOC Blood Pressure : / mmHG Vent. Rate : 097 BPM Atrial Rate : 097 BPM P-R Int : 000 ms QRS Dur : 080 ms QT Int : 364 ms P-R-T Axes : 000 143 201 degrees QTc Int : 462 ms Accelerated Junctional rhythm with Premature supraventricular complexes Right axis deviation Possible Right ventricular hypertrophy ST AND T wave abnormality, consider inferior ischemia Abnormal ECG Confirmed by BASIL FERMIN MD ([id number]), assignment desk editor LAURA BUENROSTRO ([id number]) on 11/07/2018 8:46:23 AM Referred By: Yadi Doshi Confirmed By:BASIL FERMIN MD 11/07/18 0846 Date Basil Fermin MD CC: Jay Nicholas MD; Yadi Doshi MD; Maicol Curran MD; Mani Newman MD Signed CBC W/DIFF, AUTOMATED Collected: 11/07/2018 Status: F Source: [place] 5:30 AM [facility] REPOSITORY TYPE CODE TESTS RESULT OUT OF RANGE REFERENCE UNITS LAB L100.1000 4.4-11.0 K/mm3 Normal WBC 7.0 LAB L100.1200 4.2-5.4 M/mm3 Low RBC 3.35 LAB L100.1300 12.0-15.0 g/dl Low HGB 9.2 LAB L100.1400 37-47 % Low HCT 32.6 LAB L100.1500 81-99 fL Normal MCV 97.3 LAB L100.1600 27.0-32.0 pg Normal MCH 27.5 LAB L100.1700 32-36 g/gl Low MCHC 28.2 LAB L100.1810 11.6-14.6 % High RDW CV 16.6 LAB L100.1820 35.1-43.9 fl High RDW SD 58.6 LAB L100.1900 150-450 K/mm3 Normal PLT 252 LAB L100.2000 6.2-12.0 fl Normal MPV 9.5 LAB L100.2100 47-70 % Normal NEUT% 56.8 LAB L100.2200 19-41 % Normal LY% 30.0 LAB L100.2300 0-10 % Normal MONO% 9.3 LAB L100.2400 0-5 % Normal EO% 3.0 LAB L100.2500 0-1 % Normal BASO% 0.6 LAB L100.2550 0.0-0.9 % Normal IM GRAN % 0.300 Result Comment: IG% - Immature Granulocytes (promyelocytes, myelocytes and metamyelocytes) > 1% indicates that a LEFT SHIFT is Present. LAB L100.2620 2.0-7.7 X10 3/uL Normal Absolute Neut 4.0 LAB L100.2720 0.83-4.51 X10 3/ul Normal Absolute Lymph 2.10 Performed By: #### L100.0100 #### [facility] [address] [place], [address] BASIC METABOLIC Collected: 11/07/2018 Status: F Source: [place] PROFILE (BMP) 5:30 AM [facility] REPOSITORY TYPE CODE TESTS RESULT OUT OF RANGE REFERENCE UNITS LAB L501.0100 74-106 mg/dL Normal GLU 85 Result Comment: Please note revised GLUCOSE reference range effective 2017. LAB L501.1000 7-18 mg/dL High BUN 39 LAB L501.1100 0.55-1.02 mg/dL High CREAT,SERUM 1.25 Result Comment: The validity of the calculated GFR AND GFRAA in patients over 70 years has not been determined. Clinical correlation is essential. LAB L501.1110 >60 mL/min Low EST GFR 44 Result Comment: Non- GFR Calc LAB L501.1115 >60 mL/min Low EST GFR - AA 53 Result Comment: GFR Calc LAB L501.1255 ml/min Normal Estimated CRCL 30.48 LAB L501.1300 10-20 RATIO High BUN/CRE 31.2 LAB L501.2200 8.5-10 mg/dL Low .1 CA 8.4 LAB L501.5300 136-14 mmol/L Normal 5 NA 137 LAB L501.5600 3.5-5. mmol/L Normal 1 K 4.7 LAB L501.5900 98-107 mmol/L Normal CL 101 LAB L501.6100 21.0-3 mmol/L Normal 2.0 CO2 30.0 LAB L501.6200 5-15 Normal GAP 6 Performed By: #### L500.2500 #### [facility] [address] [facility] [place], [address] CONSULTATION Observed: 11/06/2018 Status: F Source: [facility] 1:12 PM [facility] REPOSITORY [facility] Medical Records Department [address] [place] [id number] Consultation 11/06/18 1307 MR#: [id number] Acct: [id number] Name: ROSA BELTRAN Rep #: [id number] : 1935 82 From: Carla Flor MD PCP: Maicol Curran MD Status: ADM IN Y Location: [place] [address] Problem List (1) Pneumonia Status: Acute Reason for Consult: pneumonia Consulted by: Dr. Doshi History of Present Illness: The patient is a 82 year old F who presented from ECF with acute onset of hypoxia, fever, altered mental status. No recent outpt abx. Taken to ED 11/03, admitted on vanc/zosyn. Found to have pneumonia, uti, and infected R calf ulcer. Fever resolved, wbc back to normal. Mental status remains poor and is unable to answer questions. ROS unobtainable. - Medical History Past Medical History (Chronic Problems): Chronic Problems Coronary artery disease (Chronic) Atrial [...] Home Medications: Ambulatory Orders Medication Instructions Recorded - Social History SMOKING STATUS:: Unknow if ever smoked Vital Signs Temp Pulse Resp BP Pulse Ox 97.9 F 87 20 H 103/53 L 96 11/06/18 11:34 11/06/18 11:34 11/06/18 11:34 11/06/18 11:34 11/06/18 11:34 Oxygen Flow Rate (L/min) 4 Oxygen Delivery Method Nasal Cannula Weight: 112.8 kg Body Mass Index (BMI) 41.3 Microbiology Past 72 Hours 11/03/18 12:00 Gram Stain - Final Wound - Leg, Right Wound Culture - Preliminary Laboratory Tests Past 24 Hrs WBC RBC Hgb Hct MCV MCH MCHC RDW RDW Differential WBC 8.5 RBC 3.21 L Hgb 8.9 L Hct 31.0 L - Other Studies Radiology: [] reviewed Other Studies: [] Route of nutrition/ use of supplements: [] Nutritional Intake: [] IV Site: [] Vitale Catheter: [] - Physical Exam General: Lethargic - able to follow some commands HEENT: Atraumatic, PERRLA, EOMI Neck: Supple, No Nodes Lungs: Diminished Cardiovascular: Regular rate, Regular Rhythm Abdomen: Soft, Non Tender, Non-Distended Extremities: Edema - mild BLE Skin: Ulcer/ Wound - R calf wound, reviewed photos IV Site: Peripheral Musculoskeletal: No Tenderness to Palpation of Joints or Extremities - Assessment/Plan Antibiotics: [] Assessment/Plan: [] sepsis due to CAP - improved. On vanc/zosyn. Fever and leukocytosis resolved. Narrow abx to po doxy/omnicef, plan on stop date 11/10/18. complicated citrobacter uti - abx as above infected R calf wound - cx with AcB, proteus, and MRSA. Abx as above and local wound care. Will follow, thank you. 11/06/18 1312 <Electronically signed by Carla Flor MD> Date Carla Flor MD Cosigner Signature (if applicable): Date CC: Yadi Doshi MD; Maicol Curran MD; Carla Flor MD; Mani Newman MD Signed CBC W/DIFF, AUTOMATED Collected: 11/06/2018 Status: F Source: [place] 5:30 AM [facility] REPOSITORY TYPE CODE TESTS RESULT OUT OF RANGE REFERENCE UNITS LAB L100.1000 4.4-11.0 K/mm3 Normal WBC 8.5 LAB L100.1200 4.2-5.4 M/mm3 Low RBC 3.21 LAB L100.1300 12.0-15.0 g/dl Low HGB 8.9 LAB L100.1400 37-47 % Low HCT 31.0 LAB L100.1500 81-99 fL Normal MCV 96.6 LAB L100.1600 27.0-32.0 pg Normal MCH 27.7 LAB L100.1700 32-36 g/gl Low MCHC 28.7 LAB L100.1810 11.6-14.6 % High RDW CV 16.7 LAB L100.1820 35.1-43.9 fl High RDW SD 59.0 LAB L100.1900 150-450 K/mm3 Normal PLT 234 LAB L100.2000 6.2-12.0 fl Normal MPV 9.2 LAB L100.2100 47-70 % Normal NEUT% 58.4 LAB L100.2200 19-41 % Normal LY% 27.3 LAB L100.2300 0-10 % Normal MONO% 8.7 LAB L100.2400 0-5 % Normal EO% 4.8 LAB L100.2500 0-1 % Normal BASO% 0.4 LAB L100.2550 0.0-0.9 % Normal IM GRAN % 0.400 Result Comment: IG% - Immature Granulocytes (promyelocytes, myelocytes and metamyelocytes) > 1% indicates that a LEFT SHIFT is Present. LAB L100.2620 2.0-7.7 X10 3/uL Normal Absolute Neut 5.0 LAB L100.2720 0.83-4.51 X10 3/ul Normal Absolute Lymph 2.32 Performed By: #### L100.0100 #### [facility] [address] [place], [place], [id number] BASIC METABOLIC Collected: 11/06/2018 Status: F Source: [facility] PROFILE (BMP) 5:15 AM [facility] REPOSITORY TYPE CODE TESTS RESULT OUT OF RANGE REFERENCE UNITS LAB L501.0100 74-106 mg/dL Normal GLU 92 Result Comment: Please note revised GLUCOSE reference range effective 2017. LAB L501.1000 7-18 mg/dL High BUN 43 LAB L501.1100 0.55-1.02 mg/dL High CREAT,SERUM 1.42 Result Comment: The validity of the calculated GFR AND GFRAA in patients over 70 years has not been determined. Clinical correlation is essential. LAB L501.1110 >60 mL/min Low EST GFR 38 Result Comment: Non- GFR Calc LAB L501.1115 >60 mL/min Low EST GFR - AA 46 Result Comment: GFR Calc LAB L501.1255 ml/min Normal Estimated CRCL 26.83 LAB L501.1300 10-20 RATIO High BUN/CRE 30.3 LAB L501.2200 8.5-10 mg/dL Low .1 CA 8.0 LAB L501.5300 136-14 mmol/L Normal 5 NA 138 LAB L501.5600 3.5-5. mmol/L Normal 1 K 4.8 LAB L501.5900 98-107 mmol/L Normal CL 100 LAB L501.6100 21.0-3 mmol/L Normal 2.0 CO2 31.0 LAB L501.6200 5-15 Normal GAP 7 Performed By: #### L500.2500 #### [facility] [address] [place], [address] VANCOMYCIN, RANDOM Collected: 11/06/2018 Status: F Source: [facility] LEVEL 5:15 AM [facility] REPOSITORY TYPE CODE TESTS RESULT OUT OF REFERENCE UNITS RANGE LAB L501.8850 0.0-15.0 ug/mL High VANCO, RANDOM 20.1 Result Comment: VANCOMYCIN STANDARD DRUG THERAPY: CRITICAL VALUE IS > 15.0 mg/L VANCOMYCIN HIGH INTENSITY THERAPY: CRITICAL VALUE IS > 20.0 mg/L PLEASE CONTACT PHARMACY SERVICES (#[id number]) FOR INTERPRETATION OF RESULTS. THIS RESULT DOES NOT REPRESENT A PEAK OR TROUGH LEVEL FOR THIS DRUG. Performed By: #### L501.8850 #### [facility] [address] [place], [address] VANCOMYCIN, TROUGH Collected: 11/05/2018 Status: F Source: [facility] LEVEL 12:30 PM [facility] REPOSITORY Order Comment: Comments: PLEASE DRAW 30MIN PRIOR TO DOSE ON 11/05 @1300 Time Medication is to be Given? 1300 TYPE CODE TESTS RESULT OUT OF REFERENCE UNITS RANGE LAB L501.8820 5.0-15.0 ug/mL High VANCO, TROUGH 22.4 Result Comment: VANCOMYCIN STANDARED DRUG THERAPY TROUGH LEVEL: 5.0 - 15.0 mg/L VANCOMYCIN HIGH INTENSITY THERAPY TROUGH LEVEL: 15.0 - 20.0 mg/L High Intensity therapy recommended for serious life threatening infections include: - Meningitis -Endocarditis -Pneumonia (Ventilator/Healtcare Associated) -Sepsis PLEASE CONTACT PHARMACY SERVICES (#[id number]) FOR INTERPRETATION OF RESULTS. Performed By: #### L501.8820 #### [facility] [address] [place], [address] CBC W/DIFF, AUTOMATED Collected: 11/05/2018 Status: F Source: [facility] 5:05 AM [facility] REPOSITORY TYPE CODE TESTS RESULT OUT OF RANGE REFERENCE UNITS LAB L100.1000 4.4-11.0 K/mm3 Normal WBC 8.7 LAB L100.1200 4.2-5.4 M/mm3 Low RBC 3.22 LAB L100.1300 12.0-15.0 g/dl Low HGB 9.0 LAB L100.1400 37-47 % Low HCT 31.6 LAB L100.1500 81-99 fL Normal MCV 98.1 LAB L100.1600 27.0-32.0 pg Normal MCH 28.0 LAB L100.1700 32-36 g/gl Low MCHC 28.5 LAB L100.1810 11.6-14.6 % High RDW CV 16.9 LAB L100.1820 35.1-43.9 fl High RDW SD 57.7 LAB L100.1900 150-450 K/mm3 Normal PLT 238 LAB L100.2000 6.2-12.0 fl Normal MPV 10.1 LAB L100.2100 47-70 % Normal NEUT% 67.7 LAB L100.2200 19-41 % Normal LY% 20.8 LAB L100.2300 0-10 % Normal MONO% 5.8 LAB L100.2400 0-5 % Normal EO% 4.9 LAB L100.2500 0-1 % Normal BASO% 0.3 LAB L100.2550 0.0-0.9 % Normal IM GRAN % 0.500 Result Comment: IG% - Immature Granulocytes (promyelocytes, myelocytes and metamyelocytes) > 1% indicates that a LEFT SHIFT is Present. LAB L100.2620 2.0-7.7 X10 3/uL Normal Absolute Neut 5.9 LAB L100.2720 0.83-4.51 X10 3/ul Normal Absolute Lymph 1.81 Performed By: #### L100.0100 #### [facility] [address] [place], [place], [address] BASIC METABOLIC Collected: 11/05/2018 Status: F Source: [facility] (BMP) [facility] TYPE CODE TESTS RESULT OUT OF RANGE REFERENCE UNITS LAB L501.0100 74-106 mg/dL Normal GLU 87 Result Comment: Please note revised GLUCOSE reference range effective 2017. LAB L501.1000 7-18 mg/dL High BUN 41 LAB L501.1100 0.55-1.02 mg/dL High CREAT,SERUM 1.50 Result Comment: The validity of the calculated GFR AND GFRAA in patients over 70 years has not been determined. Clinical correlation is essential. LAB L501.1110 >60 mL/min Low EST GFR 35 Result Comment: Non- GFR Calc LAB L501.1115 >60 mL/min Low EST GFR - AA 43 Result Comment: GFR Calc LAB L501.1255 ml/min Normal Estimated CRCL 25.40 LAB L501.1300 10-20 RATIO High BUN/CRE 27.3 LAB L501.2200 8.5-10 mg/dL Low .1 CA 8.0 LAB L501.5300 136-14 mmol/L Normal 5 NA 136 LAB L501.5600 3.5-5. mmol/L Normal 1 K 4.5 LAB L501.5900 98-107 mmol/L Normal CL 99 LAB L501.6100 21.0-3 mmol/L Normal 2.0 CO2 30.0 LAB L501.6200 5-15 Normal GAP 7 Performed By: #### L500.2500 #### [facility] [address] [place], [address] CBC W/DIFF, AUTOMATED Collected: 11/04/2018 Status: F Source: VALE 5:35 AM [facility] REPOSITORY TYPE CODE TESTS RESULT OUT OF RANGE REFERENCE UNITS LAB L100.1000 4.4-11.0 K/mm3 High WBC 14.2 LAB L100.1200 4.2-5.4 M/mm3 Low RBC 3.29 LAB L100.1300 12.0-15.0 g/dl Low HGB 9.1 LAB L100.1400 37-47 % Low HCT 32.0 LAB L100.1500 81-99 fL Normal MCV 97.3 LAB L100.1600 27.0-32.0 pg Normal MCH 27.7 LAB L100.1700 32-36 g/gl Low MCHC 28.4 LAB L100.1810 11.6-14.6 % High RDW CV 17.2 LAB L100.1820 35.1-43.9 fl High RDW SD 57.6 LAB L100.1900 150-450 K/mm3 Normal PLT 231 LAB L100.2000 6.2-12.0 fl Normal MPV 10.1 LAB L100.2100 47-70 % High NEUT% 80.9 LAB L100.2200 19-41 % Low LY% 14.2 LAB L100.2300 0-10 % Normal MONO% 3.4 LAB L100.2400 0-5 % Normal EO% 0.8 LAB L100.2500 0-1 % Normal BASO% 0.2 LAB L100.2550 0.0-0.9 % Normal IM GRAN % 0.500 Result Comment: IG% - Immature Granulocytes (promyelocytes, myelocytes and metamyelocytes) > 1% indicates that a LEFT SHIFT is Present. LAB L100.2620 2.0-7.7 X10 3/uL High Absolute Neut 11.5 LAB L100.2720 0.83-4.51 X10 3/ul Normal Absolute Lymph 2.02 Performed By: #### L100.0100 #### [facility] [address] [place], [place], [id number] BASIC METABOLIC Collected: 11/04/2018 Status: F Source: [facility] PROFILE (BMP) 5:35 AM [facility] REPOSITORY TYPE CODE TESTS RESULT OUT OF RANGE REFERENCE UNITS LAB L501.0100 74-106 mg/dL Normal GLU 84 Result Comment: Please note revised GLUCOSE reference range effective 2017. LAB L501.1000 7-18 mg/dL High BUN 37 LAB L501.1100 0.55-1.02 mg/dL High CREAT,SERUM 1.24 [...] 30.73 LAB L501.1300 10-20 RATIO High BUN/CRE 29.8 LAB L501.2200 8.5-10 mg/dL Low .1 CA 7.9 LAB L501.5300 136-14 mmol/L Normal 5 NA 137 LAB L501.5600 3.5-5. mmol/L Normal 1 K 4.1 LAB L501.5900 98-107 mmol/L Normal CL 102 LAB L501.6100 21.0-3 mmol/L Normal 2.0 CO2 28.0 LAB L501.6200 5-15 Normal GAP 7 Performed By: #### L500.2500 #### [facility] [address] [facility] [place], [address] HISTORY AND PHYSICAL Observed: 11/03/2018 Status: F Source: [facility] EXAM 4:57 PM [facility] REPOSITORY [facility] Medical Records Department [address] [place] [address] History and Physical 11/03/18 1228 MR#: [id number] Acct: [id number] Name: ROSA BELTRAN Rep #: [id number] : 1935 82 From: Yadi Doshi MD PCP: Maicol Curran MD Status: ADM IN Y Location: [place] [address] History of Present Illness Date of Admission: 11/03/18 Chief Complaint: hypoxia The patient is a 82 year old F with an extensive PMH as listed below; she was admitted from a senior care after she was noted to be short of breath and oxygen level was checked and she was noted to be in the 70s. Oxygen level came up to the 90s after she was put on 4 L of oxygen. She was brought in to the ED where she was noted to be febrile and tachypneic as well. She admitted to being short of breath and feeling her heart racing. She also admitted to a fever but denied any chills. Patient was quite lethargic in the ED but was able to answer questions. In the ED she was noted to be febrile with temperature peaking at 102.1 Fahrenheit and she was tachypneic as well. She was on 4 L of oxygen by nonrebreather mask at time of review. CBC does show white cell count of 25 and hemoglobin of 9.4. Platelets were normal. BMP showed creatinine of 1.19 and bicarb of 33. Chest x-ray showed cardiomegaly and persistent evidence for pulmonary congestion and airspace consolidation. She is being admitted to manage for acute hypoxic respiratory failure and sepsis likely due to pneumonia. [] Past Medical History Past Medical History (Chronic Problems): Chronic Problems Coronary artery disease (Chronic) Atrial [...] Home Medications: Ambulatory Orders Medication Instructions Recorded Surgical History: herniorrhaphy, hysterectomy, total knee arthroplasty - Bilateral., tonsillectomy, - - Cardiac stents x 2, gastric bypass surgery, right ankle ORIF. Psychiatric History: No pertinent psych hx LABEL STITCHER History: No pertinent LABEL STITCHER history Lives: [facility] Smoking Status: Unknown if ever smoked - *Family History Maternal History Items: - - Patient's father in his 70s with a history of arthritis. The patient's mother at the age of 90 with a history of arthritis. Paternal History Items: Heart Disease Review of Systems Constitutional: Reports: Fever, Malaise, Weakness. Denies: Chills Eyes: Denies: Blurred vision HEENT: Denies: Head Aches, Sinus Congestion, Sinus Drainage Cardiovascular: Reports: Chest Pain. Denies: Chest Pressure, Chest Tightness, Edema, Light Headedness, Orthopnea, Paroxysmal Noc. Dyspnea Respiratory: Reports: Shortness of Breath, Shortness of breath at rest, Shortness of breath upon exertion. Denies: Cough, Sputum production, Wheezing Gastrointestinal: Denies: Abdominal Pain, Nausea, Vomiting Genitourinary: Denies: Dysuria Musculoskeletal: Denies: Joint Pain, Joint Tenderness Skin: Denies: Rash, Wounds Neurological: Denies: Numbness, Tingling, Focal weakness Psychiatric: Denies: Anxiety, Depression, Homicidal Ideations, Suicidal Ideations Hematologic/ Lymphatic: Denies: Easy Bruising, Easy Bleeding VTE Information - Inpt Only VTE Present on Admission: No VTE Pharm Prophylaxis ordered?: Yes - Physical Exam General: Alert, Lethargic HEENT: EOMI, - - blood tinged crusty discharge over left eye. Denies hitting her head or falling or being hit Oral: Dry Mucosa Neck: Supple, No JVD, Negative Carotid Bruits Lungs: - - decreased breath sounds bibasally with some crackles. Poor inspiratory effort. Tachypneic. On 4L of oxygen by nonrebreather mask Cardiovascular: Normal S1, Normal S2, No murmurs, Tachycardic Abdomen: Bowel Sounds Present, Soft, Non Tender, Non-Distended, No Hepato-splenomegaly Extremities: - - bilateral LE pitting pedal edema, with mild erythema of both LEs; RLE wrapped in bandage. Skin: - - as under extremities Musculoskeletal: Tenderness - mild tenderness on palpation of both LEs Lymphatic: No Cervical, Supraclavicular, or Inguinal Adenopathy Neurological: Cranial nerves II-XII grossly intact, Neuro grossly intact Psych/Mental Status: - - lethargic, Vital Signs Temp Pulse Resp BP Pulse Ox 102.1 F H 91 22 H 124/70 H 96 11/03/18 11:39 11/03/18 12:26 11/03/18 12:26 11/03/18 11:39 11/03/18 11:40 Oxygen Flow Rate (L/min) 4 Oxygen Delivery Method Venturi Mask Weight: 253 lb 8.505 oz Body Mass Index (BMI) 43.4 Laboratory Tests Past 24 Hrs Diagnostic Data Chest X-Ray 11/03/18 10:39 IMPRESSION: Cardiomegaly and persistent evidence for pulmonary congestion and airspace consolidation. Electronically Signed: Susan Buenrostro MD at 11:26 EST , Service support , Assessment/Plan All Active Problems Venous stasis ulcer of right lower extremity (Acute) Congestive heart failure (Acute) 82-year-old admitted from a nursing with a complaint of shortness of breath, fever and hypoxia. 1. Sepsis due to pneumonia and UTI * SIRS criteria is 3/4 (fever, tachypnea, leucocytosis) * saturation fell to 70s on room air in the senior care * denies any cough * admit to PCU with telemetry * check BNP; if WNL then hydrate per sepsis protocol * get 2D echo * blood cultures x 2 and urine culture; urine for strep and legionella * check respiratory panel * UA showed 500 LE and 25-50wbc per HPF * started on IV vancomycin and zosyn;will continue * 2.Acute hypoxic respiratory failure due to health associated pneumonia and acute systolic CHF exacerbation * saturation fell to the 70s on room air and came up to 90s on 4L of oxygen * CXR showed evidence of pulmonary congestion and infiltrate * currently saturating well on 4L of oxygen by nasal canula * titrate oxygen to maintain sats>92% * use BIPAP prn * breathing treatments * 3. Acute diastolic CHF exacerbation: * BNP is 741. * CXR as above. * 2D echo(: EF of 65% with stage 3 diastolic dysfunction * WIll diurese with IV lasix and monitor 4. Chronic LE ulcers: present on admission. consult wound care nurse 5. Afib: on aspirin and eliquis 6. Hypothyroidism; on synthroid 7. Microcytic, hypochromic anemia: Hemoglobin is 9.4. Will monitor. 8. COPD: on breathing treatment DVT prophylaxis; on eliquis Code status: DNRCCA Code Visit Inpatient E AND M: 65906 Init Hosp L3 11/03/18 2496 <Electronically signed by Yadi Doshi MD> Date Yadi Doshi MD Cosigner Signature: Date (if applicable) CC: Yadi Doshi MD; Maicol Curran MD; Mani Newman MD Signed Observed: 11/03/2018 Status: F Source: [facility] RESPIRATORY PANEL 3:25 PM [facility] MOLECULAR REPOSITORY RP PANEL ADENOVIRUS Not Detected HUMAN METAPHNEUMO Not Detected INFLUENZA A Not Detected INFLUENZA A (SUBTYPE H1) Not Detected INFLUENZA A (SUBTYPE H3) Not Detected INFLUENZA B Not Detected PARAINFLUENZA 1 Not Detected PARAINFLUENZA 2 Not Detected PARAINFLUENZA 3 Not Detected PARAINFLUENZA 4 Not Detected RHINOVIRUS Not Detected RSV A Not Detected RSV B Not Detected NAAT METHOD Testing was performed using nucleic acid amplification Performed By: #### M100.638 #### [facility] [address] [facility] [place], [address] EMERGENCY DEPARTMENT Observed: 11/03/2018 Status: F Source: [facility] SUMMARY 12:30 PM [facility] REPOSITORY [facility] Medical Records Department [address] [place] [address] Emergency Department Summary 11/03/18 1228 MR#: [id number] Acct: [id number] Name: ROSA BELTRAN Rep #: [id number] : 1935 82 From: Jay Nicholas MD PCP: Maicol Curran MD Status: REG ER - ER Visit Summary Date of Service: 11/03/18 Chief Complaint: Abnormal labs History of Present Illness: The patient is a 82 F who is being sent from the senior care for abnormal labs. History is obtained from paperwork. Patient does not give any history. Her white blood cell count on the outpatient labs was 26.5. They are concerned about a urinary tract infection. She is on Eliquis for atrial fibrillation. Upon EMS arrival for transportation her SPO2 is in the 70s. They placed her on a nonrebreather and she was up to 98% on that. According to paperwork she has no history of COPD. Physical Examination: Vital signs reviewed. HEENT exam reveals a minimal amount of blood coming from the left eye which according to paperwork is chronic. Heart is irregularly irregular and not tachycardic. Lungs have rhonchorous breath sounds bilaterally. Abdomen is soft with no tenderness. Extremities reveal 2+ edema with cellulitic changes. This appears to be chronic. She does have wounds on the right lower extremity. There are slightly erythematous. She has diffuse overall weakness and she is alerted to self only. Test Results: EKG is atrial fibrillation with a rate of 97. Nonspecific changes noted. Chest x-ray reveals a right upper lobe infiltrate. White blood cell count 25.1. Urinalysis does show infection. Creatinine is 1.19. Lactate 1.5. Emergency Department Course and Treatment: I did obtain a wound culture from the patient's right lower extremity. She has multiple areas which could be the nidus of her infection. Chest x-ray does reveal a right upper lobe infiltrate. She does have 25-50 white blood cells in her urine. The right lower extremity is erythematous. Her temperature was 102 here so she was given Tylenol. I will start her on vancomycin and Zosyn. She was able to be weaned to a 50% Ventimask. I feel she should be observed in the ICU overnight Treatment Plan: [] Disposition: Admit Impression: Sepsis Healthcare associated pneumonia Urinary tract infection This note was generated with [employer] dictation software. It may contain incorrect words, spelling, and punctuation that were not noted in review of the chart prior to signing ED Disposition - Plan for ED Patient: Chief Complaint: Alt LOC Referrals: Maicol Curran MD [Primary Care Provider] - What to do if you have Problems For any increased pain, shortness of breath, bleeding, nausea or vomiting, chest pain, or any unexpected problems, contact your Primary Care Provider. Call [facility] ([phone]) or report to the closest Emergency Room. Call 911 if necessary. 11/03/18 1230 <Electronically signed by Jay Nicholas MD> Date Jay Nicholas MD Cosigner Signature (If Indicated): Date CC: Maicol Curran MD; Mani Newman MD URINALYSIS, COMPLETE Collected: 11/03/2018 Status: F Source: VALE 12:00 PM [facility] REPOSITORY Order Comment: Order Date: 11/03/18 How was Urine Obtained? CATHETER SPECIMEN TYPE [...] UR Normal 6.0 LAB L400.3600 Negative mg/dl High PROT 15 DIPSTX LAB L400.3700 Normal mg/dl Normal UROBILI Normal LAB L400.3750 Negative Normal NITRITE UR Negative LAB L400.3780 Negative /ul High 10 OCCULT BLOOD-UR LAB L400.3800 Negative /ul High LEUK ESTERASE 500 LAB L400.4050 0-5 /hpf WBC Normal 25-50 SEEN LAB L400.4100 0-5 /hpf Normal RBC-UA 0-5 SEEN LAB L400.4150 5-10 /hpf SQUAM Normal EPI 0-5 SEEN LAB L400.4300 None Seen /hpf 1+ Normal BACTERIA LAB L400.4350 <or=2+ /hpf 0 Normal MUCUS, URINE SEEN Performed By: #### L400.0001 #### [facility] [place], [place], [address] Observed: 11/03/2018 Status: F Source: [facility] LEGIONELLA ANTIGEN 12:00 PM [facility] URINE REPOSITORY Order Date: 11/03/18 Has pt arrived? Y Specimen Source: URINE, VITALE Legionella, UR Legionella Antigen result interpretation: Negative Presumptive negative for Legionella pneumophila serogroup 1 antigen in urine, suggesting no recent or current infection. Legionella Ag, Urine Negative (See interpretation below) Performed By: #### M300.4500 #### [facility] [address] [place] [address], [address] STREP Observed: 11/03/2018 Status: F Source: [facility] PNEUMONIAE ANTIG(UR,CSF) 12:00 PM [facility] REPOSITORY Order Date: 11/03/18 Has pt arrived? Y S pneumo Ag URINE INTERPRETATION Negative Urine Presumptive negative for pneumococcal pneumonia, suggesting no current or recent pneumococcal infection. Infection due to S pneumoniae cannot be ruled out since the antigen present in the sample may be below the detection limit of the test. Strep pneumo Test Negative URINE (See interpretation below) Performed By: #### M300.4600 #### [facility] [address], [address] Observed: 11/03/2018 Status: F Source: [facility] CULTURE, WOUND 12:00 PM [facility] REPOSITORY Order Date: 11/03/18 Gram Stain Gram Stain 4+ Gram positive cocci 4+ Gram negative rods 1+ Red Blood Cells Wound Culture RESULTS CALLED TO CAIO/EVA 11/06/18 0802 Norah Silverio. Copy of report sent to Infection Control Printer [id number] 11/06/18 0803 GLYNN. ORGANISM 1: Meth. resistant Staph. aureus Amount Growth 3+ ORGANISM 2: Proteus mirabilis Amount Growth 2+ ORGANISM 3: Acinetobacter baumannii Amount Growth 3+ MARKER Multi Drug Resistant Organism Meth. resistant Staph. aureus: REACTION Benzylpenicillin NF >=0.5 R Cefoxitin *NF + Clindamycin $$ <=0.25 S Inducable Clindamycin Resistan - Erythromycin $ >=8 R Gentamicin $ <=0.5 S Levofloxacin $ 4 I Linezolid $$$$ 2 S Oxacillin NF >=4 R Tigecycline $$$$ <=0.12 S Rifampin $$ <=0.5 S Tetracycline NF <=1 S Trimethoprim/Sulfametho $ <=10 S Vancomycin $ 1 S (NF) indicates non-formulary drug at [facility]. Approval by Infectious Disease Specialist required before non-formulary drugs may be ordered and/or dispensed. * CLSI guidelines does not recommend testing of cephalosporins. This interpretation is deduced from Beta-lactam/penicillin results. Proteus mirabilis: REACTION Ampicillin $ >=32 R Ampicillin/Sulbactam $ 16 I Cefazolin $ 8 S Cefepime $ <=1 S Ceftriaxone $ <=1 S Ciprofloxacin $ >=4 R Ertapenim $$$ <=0.5 S Gentamicin $ <=1 S Levofloxacin $ >=8 R Piperacillin/Tazobactam $$ <=4 S Tobramycin $ <=1 S Trimethoprim/Sulfametho $ >=320 R (NF) indicates non-formulary drug at [facility]. Approval by Infectious Disease Specialist required before non-formulary drugs may be ordered and/or dispensed. Acinetobacter baumannii: REACTION Cefepime $ 8 S Ceftazidime *NF 4 R Ceftriaxone $ 32 I Ciprofloxacin $ >=4 R Gentamicin $ 4 S Imipenem *NF >=16 R Levofloxacin $ >=8 R Tobramycin $ 4 S Trimethoprim/Sulfametho $ >=320 R (NF) indicates non-formulary drug at [facility]. Approval by Infectious Disease Specialist required before non-formulary drugs may be ordered and/or dispensed. Performed By: #### M100.1400 #### [facility] [address] [facility] [place], [place], [id number] Observed: 11/03/2018 Status: F Source: [facility] CULTURE, URINE 12:00 PM [facility] REPOSITORY Order Date: 11/03/18 Urine Culture ORGANISM 1: Citrobacter youngae [place] Count 50,000-80,000 Citrobacter youngae: REACTION Amoxacillin/Clavulanic Acid $ >=32 R Cefazolin $ >=64 R Cefepime $ <=1 S Ceftriaxone $ >=64 R Ciprofloxacin $ <=0.25 S Ertapenim $$$ <=0.5 S Gentamicin $ <=1 S Imipenem *NF <=0.25 S Levofloxacin $ <=0.12 S Nitrofurantoin $ <=16 S Tobramycin $ <=1 S Trimethoprim/Sulfametho $ <=20 S (NF) indicates non-formulary drug at [facility]. Approval by Infectious Disease Specialist required before non-formulary drugs may be ordered and/or dispensed. Performed By: #### M100.0650 #### [facility] [address] [place], [place], [address] Observed: 11/03/2018 Status: F Source: [facility] CULTURE, BLOOD (WB) 10:55 AM [facility] REPOSITORY BC No growth in 5 days. Performed By: #### M200.1000 #### [facility] [address], [address] CHEST 1 VIEW Observed: 11/03/2018 Status: F Source: [facility] (PORTABLE) 10:40 AM [facility] REPOSITORY [facility] [place] [address] Chest 1 View (Portable) MR#: [id number] Acct: [id number] Name: ROSA BELTRAN Rep #: [id number] : 1935 F 82 From: Susan Buenrostro MD PCP: Maicol Curran MD Status: REG ER Study: Chest 1 View (Portable) Date of Exam: 11/03/18 Exam# [id number] Ordering Dr: Jay Nicholas MD STUDY: X-RAY CHEST REASON FOR EXAM: Female, 82 years old. Cough and labored breathing. TECHNIQUE: Single AP portable view of the chest. COMPARISON: October 04, 2018 FINDINGS: Cardiac monitoring leads are present. The lungs are underexpanded compared to previous study. There is suggestion for patchy right upper lobe, right basilar and left basilar airspace disease and/or atelectasis. There is no demonstrated pleural abnormality. There is moderate cardiac enlargement. There is a prominence of the right hilar area which may partly be related to the pulmonary artery. There is prominence of the pulmonary hilar arteries without peripheral pulmonary vascular congestion, suggesting pulmonary hypertension. There is atherosclerotic calcification of the aortic arch with tortuosity. There is moderate curvature of the thoracic spine with convexity towards the right. There are degenerative changes of both shoulders. Surgical clips are visible in the left upper quadrant. RAD/Chest 1 View (Portable) IMPRESSION: Cardiomegaly and persistent evidence for pulmonary congestion and airspace consolidation. Electronically Signed: Susan Buenrostro MD at 11:26 EST , Service support , CC: Jay Nicholas MD; Maicol Curran MD Automatic Grinder Operator: Signed CBC W/DIFF, AUTOMATED Collected: 11/03/2018 Status: F Source: [facility] 10:39 AM [facility] REPOSITORY TYPE CODE TESTS RESULT OUT OF RANGE REFERENCE UNITS LAB L100.1000 4.4-11.0 K/mm3 High WBC 25.1 LAB L100.1200 4.2-5.4 M/mm3 Low RBC 3.41 LAB L100.1300 12.0-15.0 g/dl Low HGB 9.4 LAB L100.1400 37-47 % Low HCT 32.0 LAB L100.1500 81-99 fL Normal MCV 93.8 LAB L100.1600 27.0-32.0 pg Normal MCH 27.6 LAB L100.1700 32-36 g/gl Low MCHC 29.4 LAB L100.1810 11.6-14.6 % High RDW CV 17.1 LAB L100.1820 35.1-43.9 fl High RDW SD 58.5 LAB L100.1900 150-450 K/mm3 Normal PLT 247 LAB L100.2000 6.2-12.0 fl Normal MPV 9.3 LAB L100.2100 47-70 % High NEUT% 87.9 LAB L100.2200 19-41 % Low LY% 8.6 LAB L100.2300 0-10 % Normal MONO% 2.6 LAB L100.2400 0-5 % Normal EO% 0.4 LAB L100.2500 0-1 % Normal BASO% 0.1 LAB L100.2550 0.0-0.9 % Normal IM GRAN % 0.400 Result Comment: IG% - Immature Granulocytes (promyelocytes, myelocytes and metamyelocytes) > 1% indicates that a LEFT SHIFT is Present. LAB L100.2620 2.0-7.7 X10 3/uL High Absolute Neut 22.1 LAB L100.2720 0.83-4.51 X10 3/ul Normal Absolute Lymph 2.15 LAB L100.4500 Normal SMEAR COMMENT Result Comment: SLIDE SCANNED - NEUTROPHILIA. Performed By: #### L100.0100 #### [facility] [address] [place], [place], [address] PROTHROMBIN TIME W/INR Collected: 11/03/2018 Status: F Source: [facility] 10:39 AM [facility] REPOSITORY TYPE CODE TESTS RESULT OUT OF RANGE REFERENCE UNITS LAB L300.4150 11.7-14.9 SECONDS High PROTIME 18.7 LAB L300.4200 Normal INR 1.6 Performed By: #### L300.3900, L300.4310 #### [facility] [address] [place], [place], [id number] PARTIAL THROMBOPLAST Collected: 11/03/2018 Status: F Source: [facility] TIME 10:39 AM [facility] REPOSITORY TYPE CODE TESTS RESULT OUT OF REFERENCE UNITS RANGE LAB L300.4310 24.1-36.2 Seconds High PTT 43.4 Performed By: #### L300.3900, L300.4310 #### [facility] [address], [address] COMPREHENSIVE METABOLIC Collected: 11/03/2018 Status: F Source: [facility] PROFIL 10:39 AM [facility] REPOSITORY TYPE CODE TESTS RESULT OUT OF RANGE REFERENCE UNITS LAB L501.0100 74-106 mg/dL Normal GLU 102 Result Comment: Fasting Glucose result from 100 to 125 mg/dL suggests IMPAIRED HOMEOSTASIS per A.D.A. criteria. Please note revised GLUCOSE reference range effective 2017. LAB L501.1000 7-18 mg/dL High BUN 33 LAB L501.1100 0.55-1.02 mg/dL High CREAT,SERUM 1.19 Result Comment: The validity of the calculated GFR AND GFRAA in patients over 70 years has not been determined. Clinical correlation is essential. LAB L501.1110 >60 mL/min Low EST GFR 46 Result Comment: Non- GFR Calc LAB L501.1115 >60 mL/min Low EST GFR - AA 56 Result Comment: GFR Calc LAB L501.1255 ml/min Normal Estimated CRCL 32.02 LAB L501.1300 10-20 RATIO High BUN/CRE 27.7 LAB L501.1500 6.4-8. g/dL Normal 2 T PROT 7.9 LAB L501.1800 3.2-5. g/dL Low 0 ALB 2.5 LAB L501.1950 2.2-4. g/dL High 2 GLOB 5.4 LAB L501.2000 0.9-2. RATIO Low 4 A/G 0.5 LAB L501.2200 8.5-10 mg/dL Low .1 CA 8.2 LAB L501.4100 15-37 U/L Normal AST 24 LAB L501.4305 45-117 U/L Normal ALK P 87 LAB L501.4405 13-56 U/L Low ALT 12 LAB L501.4600 0.20-1 mg/dL Normal .00 T BILI 0.60 LAB L501.5300 136-14 mmol/L Normal 5 NA 138 LAB L501.5600 3.5-5. mmol/L Normal 1 K 4.3 LAB L501.5900 98-107 mmol/L Normal CL 98 LAB L501.6100 21.0-3 mmol/L High 2.0 CO2 33.0 LAB L501.6200 5-15 Normal GAP 7 Performed By: #### L500.4050 #### [facility] [address] [facility] [place], [address] LACTIC ACID Collected: 11/03/2018 Status: F Source: [facility] 10:39 AM [facility] REPOSITORY Order Comment: Yes/No query for Sepsis Lactate Rule Y TYPE CODE TESTS RESULT OUT OF RANGE REFERENCE UNITS LAB L503.6005 0.4-2.0 mmol/L Normal LACTIC ACID 1.5 Performed By: #### L503.6005 #### [facility] [address] [facility] [place], [address] BNP,B-TYPE NATRIURETIC Collected: 11/03/2018 Status: F Source: [facility] PEPTIDE 10:39 AM [facility] REPOSITORY TYPE CODE TESTS RESULT OUT OF RANGE REFERENCE UNITS LAB L503.6620 0-100 pg/mL High B-TYPE 741.5 HERMELINDA PEP Performed By: #### L503.6620 #### [facility] [address] [facility] [place], [address] Observed: 11/03/2018 Status: F Source: [facility] CULTURE, BLOOD (WB) 10:39 AM [facility] REPOSITORY BC No growth in 5 days. Performed By: #### M200.1000 #### [facility] [address] [facility] [place], [place], [address] CBC W/DIFF, AUTOMATED Collected: 11/03/2018 Status: F Source: [facility] 6:30 AM [facility] REPOSITORY Order Comment: 113 TYPE CODE TESTS RESULT OUT OF RANGE REFERENCE UNITS LAB L100.1000 4.4-11.0 K/mm3 High WBC 26.5 LAB L100.1200 4.2-5.4 M/mm3 Low RBC 3.23 LAB L100.1300 12.0-15.0 g/dl Low HGB 9.1 LAB L100.1400 37-47 % Low HCT 30.4 LAB L100.1500 81-99 fL Normal MCV 94.1 LAB L100.1600 27.0-32.0 pg Normal MCH 28.2 LAB L100.1700 32-36 g/gl Low MCHC 29.9 LAB L100.1810 11.6-14.6 % High RDW CV 17.4 LAB L100.1820 35.1-43.9 fl High RDW SD 59.2 LAB L100.1900 150-450 K/mm3 Normal PLT 259 LAB L100.2000 6.2-12.0 fl Normal MPV 9.6 LAB L100.2100 47-70 % High NEUT% 87.2 LAB L100.2200 19-41 % Low LY% 9.7 LAB L100.2300 0-10 % Normal MONO% 2.0 LAB L100.2400 0-5 % Normal EO% 0.6 LAB L100.2500 0-1 % Normal BASO% 0.1 LAB L100.2550 0.0-0.9 % Normal IM GRAN % 0.400 Result Comment: IG% - Immature Granulocytes (promyelocytes, myelocytes and metamyelocytes) > 1% indicates that a LEFT SHIFT is Present. LAB L100.2620 2.0-7.7 X10 3/uL High Absolute Neut 23.2 LAB L100.2720 0.83-4.51 X10 3/ul Normal Absolute Lymph 2.58 LAB L100.4500 Normal SMEAR COMMENT COMMENT Result Comment: SLIDE SCANNED - NEUTROPHILIA NOTED. Performed By: #### L100.0100 #### [facility] [address] [place], [address] PROGRESS Observed: 11/01/2018 Status: COMPLETED Source: ROUND TOP 9:31 AM [facility] REPOSITORY HNO ID: [id number] Author: Volodymyr Gilbert Service: (none) Author Type: Electrician Manager Type: Progress Notes Filed: 11/01/2018 9:32 AM Note Text: Spoke with Emilee at [facility]. States still no discharge plans at this time. TYPE AND SCREEN Collected: 10/30/2018 Status: P Source: [facility] 3:20 PM [facility] REPOSITORY Order Comment: CMV NEG?* N Give When? 11/01/18 Irradiated? N Leukodepleted? Y Reason for Type AND Screen/Red Cells: ANEMIA TYPE CODE TESTS RESULT OUT OF RANGE REFERENCE UNITS LAB B10.0800 O Normal BLOOD TYPE GEL POSITIVE LAB B100.4000 Normal Antibody NEGATIVE Screen Performed By: #### B101.7450 #### [facility] [address], [address] TYPE AND SCREEN Collected: 10/30/2018 Status: P Source: [facility] 3:20 PM [facility] REPOSITORY Order Comment: CMV NEG?* N Give When? 11/01/18 Irradiated? N Leukodepleted? Y Reason for Type AND Screen/Red Cells: ANEMIA TYPE CODE TESTS RESULT OUT OF RANGE REFERENCE UNITS LAB B10.0800 O Normal BLOOD TYPE GEL POSITIVE LAB B100.4000 Normal Antibody NEGATIVE Screen Performed By: #### B101.7450 #### [facility] [address] [place], [place], [address] TYPE AND SCREEN Collected: 10/30/2018 Status: F Source: [facility] 3:20 PM [facility] REPOSITORY Order Comment: CMV NEG?* N Give When? 11/01/18 Irradiated? N Leukodepleted? Y Reason for Type AND Screen/Red Cells: ANEMIA TYPE CODE TESTS RESULT OUT OF RANGE REFERENCE UNITS LAB B10.0800 O Normal BLOOD TYPE GEL POSITIVE LAB B100.4000 Normal Antibody NEGATIVE Screen Performed By: #### B101.7450 #### [facility] [address], [address] RC Collected: 10/30/2018 Status: F Source: [facility] 3:20 PM [facility] REPOSITORY TYPE CODE TESTS RESULT OUT OF REFERENCE UNITS RANGE LAB U100.0000 [id number] TRANSFUSED PRODUCT: T AND S with Crossmatch, Red Cells COUNT: 2 Performed By: #### U100.0000 #### [facility] - refer to report for specific site CBC-COMPLETE BLOOD CNT Collected: 10/30/2018 Status: F Source: [facility] NO DIFF 5:05 AM [facility] REPOSITORY Order Comment: 113 TYPE CODE TESTS RESULT OUT OF RANGE REFERENCE UNITS LAB L100.1000 4.4-11.0 K/mm3 Normal WBC 8.8 LAB L100.1200 4.2-5.4 M/mm3 Low RBC 2.75 LAB L100.1300 12.0-15.0 g/dl Low HGB 7.7 LAB L100.1400 37-47 % Low HCT 26.1 LAB L100.1500 81-99 fL Normal MCV 94.9 LAB L100.1600 27.0-32.0 pg Normal MCH 28.0 LAB L100.1700 32-36 g/gl Low MCHC 29.5 LAB L100.1810 11.6-14.6 % High RDW CV 17.3 LAB L100.1820 35.1-43.9 fl High RDW SD 59.7 LAB L100.1900 150-450 K/mm3 Normal PLT 228 LAB L100.2000 6.2-12.0 fl Normal MPV 9.8 Performed By: #### L100.0500 #### [facility] [address] [place], [place], [address] BASIC METABOLIC Collected: 10/30/2018 Status: F Source: [facility] PROFILE (BMP) 5:05 AM [facility] REPOSITORY Order Comment: 113 TYPE CODE TESTS RESULT OUT OF RANGE REFERENCE UNITS LAB L501.0100 74-106 mg/dL Normal GLU 88 Result Comment: Please note revised GLUCOSE reference range effective 2017. LAB L501.1000 7-18 mg/dL High BUN 38 LAB L501.1100 0.55-1.02 mg/dL High CREAT,SERUM 1.50 Result Comment: The validity of the calculated GFR AND GFRAA in patients over 70 years has not been determined. Clinical correlation is essential. LAB L501.1110 >60 mL/min Low EST GFR 35 Result Comment: Non- GFR Calc LAB L501.1115 >60 mL/min Low EST GFR - AA 43 Result Comment: GFR Calc LAB L501.1300 10-20 RATIO High BUN/CRE 25.3 LAB L501.2200 8.5-10.1 mg/dL Low CA 7.9 LAB L501.5300 136-145 mmol/L NA Normal 138 LAB L501.5600 3.5-5.1 mmol/L K Normal 4.3 LAB L501.5900 98-107 mmol/L CL Normal 98 LAB L501.6100 21.0-32.0 mmol/L Normal CO2 32.0 LAB L501.6200 5-15 Normal GAP 8 Performed By: #### L500.2500 #### [facility] [address], [address] PROGRESS Observed: 10/25/2018 Status: COMPLETED Source: ROUND TOP 9:15 AM [facility] REPOSITORY HNO ID: [id number] Author: Volodymyr ([facility]) Harman Service: (none) Author Type: Electrician Manager Type: Progress Notes Filed: 10/25/2018 9:15 AM Note Text: Spoke with Emilee at [facility] and she states no discharge plans in place at this time. BASIC METABOLIC Collected: 10/23/2018 Status: F Source: [facility] PROFILE ([facility]) 4:55 AM [facility] REPOSITORY Order Comment: 113 TYPE CODE TESTS RESULT OUT OF RANGE REFERENCE UNITS LAB L501.0100 74-106 mg/dL Normal GLU 78 Result Comment: Please note revised GLUCOSE reference range effective 2017. LAB L501.1000 7-18 mg/dL High BUN 28 LAB L501.1100 0.55-1.02 mg/dL High CREAT,SERUM 1.13 Result Comment: The validity of the calculated GFR AND GFRAA in patients over 70 years has not been determined. Clinical correlation is essential. LAB L501.1110 >60 mL/min Low EST GFR 49 Result Comment: Non- GFR Calc LAB L501.1115 >60 mL/min Low EST GFR - AA 59 Result Comment: GFR Calc LAB L501.1300 10-20 RATIO High BUN/CRE 24.8 LAB L501.2200 8.5-10.1 mg/dL Low CA 8.0 LAB L501.5300 136-145 mmol/L NA Normal 137 LAB L501.5600 3.5-5.1 mmol/L K Normal 4.3 LAB L501.5900 98-107 mmol/L CL Normal 99 LAB L501.6100 21.0-32.0 mmol/L High CO2 34.0 LAB L501.6200 5-15 Low GAP 4 Performed By: #### L500.2500 #### [facility] [address] [place], [place], [address] CBC-COMPLETE BLOOD CNT Collected: 10/23/2018 Status: F Source: [facility] NO DIFF 4:55 AM [facility] REPOSITORY Order Comment: 113 TYPE CODE TESTS RESULT OUT OF RANGE REFERENCE UNITS LAB L100.1000 4.4-11.0 K/mm3 Normal WBC 6.4 LAB L100.1200 4.2-5.4 M/mm3 Low RBC 2.77 LAB L100.1300 12.0-15.0 g/dl Low HGB 7.8 LAB L100.1400 37-47 % Low HCT 27.1 LAB L100.1500 81-99 fL Normal MCV 97.8 LAB L100.1600 27.0-32.0 pg Normal MCH 28.2 LAB L100.1700 32-36 g/gl Low MCHC 28.8 LAB L100.1810 11.6-14.6 % High RDW CV 16.6 LAB L100.1820 35.1-43.9 fl High RDW SD 56.4 LAB L100.1900 150-450 K/mm3 Normal PLT 226 LAB L100.2000 6.2-12.0 fl Normal MPV 10.5 Performed By: #### L100.0500 #### [facility] [address] [place], [place], [address] PROGRESS Observed: 10/18/2018 Status: COMPLETED Source: [place] 8:33 AM [facility] REPOSITORY HNO ID: [id number] Author: Volodymyr Gilbert Service: (none) Author Type: Electrician Manager Type: Progress Notes Filed: 10/18/2018 8:34 AM Note Text: I spoke with Emilee at [facility] and she states there are no discharge plans at this time. CBC-COMPLETE BLOOD CNT Collected: 10/16/2018 Status: F Source: [facility] NO DIFF 8:20 AM [facility] REPOSITORY Order Comment: 113 TYPE CODE TESTS [...] MPV 10.1 Performed By: #### L100.0500 #### [facility] [address] [place], [place], [address] BASIC METABOLIC Collected: 10/16/2018 Status: F Source: [facility] PROFILE (BMP) 8:20 AM [facility] REPOSITORY Order Comment: 113 TYPE CODE TESTS [...] GAP 6 Performed By: #### L500.2500 #### [facility] [address] [facility] [place], [address] PROGRESS Observed: 10/11/2018 Status: COMPLETED Source: [place] 8:55 AM [facility] REPOSITORY HNO ID: [id number] Author: Volodymyr Aguiar) Harman Service: (none) Author Type: Electrician Manager Type: Progress Notes Filed: 10/11/2018 8:55 AM Note Text: I spoke with Kd @ the [facility] and she states there's no discharge plans in place at this time. CBC-COMPLETE BLOOD CNT Collected: 10/10/2018 Status: F Source: [facility] NO DIFF 6:35 AM [facility] REPOSITORY Order Comment: 113 TYPE CODE TESTS [...] MPV 9.8 Performed By: #### L100.0500 #### [facility] [address] [facility] [place], [address] BNP,B-TYPE NATRIURETIC Collected: 10/10/2018 Status: F Source: [facility] PEPTIDE 6:35 AM [facility] REPOSITORY Order Comment: 113 TYPE CODE TESTS RESULT OUT OF RANGE REFERENCE UNITS LAB L503.6620 0-100 pg/mL High B-TYPE 328.3 HERMELINDA PEP Performed By: #### L503.6620 #### [facility] [address], [address] CBC-COMPLETE BLOOD CNT Collected: 10/07/2018 Status: F Source: [facility] NO DIFF 7:20 AM [facility] REPOSITORY TYPE CODE TESTS RESULT OUT OF [...] MPV 10.0 Performed By: #### L100.0500 #### [facility] [address], [address] BASIC METABOLIC Collected: 10/07/2018 Status: F Source: [facility] PROFILE (BMP) 7:20 AM [facility] REPOSITORY TYPE CODE TESTS RESULT OUT OF [...] GAP 3 Performed By: #### L500.2500 #### [facility] [address] [facility] [place], [address] DISCHARGE SUMMARY Observed: 10/05/2018 Status: F Source: [facility] 11:04 AM [facility] REPOSITORY [facility] Medical Records Department [address] [place] [address] Discharge Summary 10/05/18 1042 MR#: [id number] Acct: [id number] Name: ROSA BELTRAN Rep #: [id number] : 1935 82 From: Juana PEREZ PCP: Mani Newman MD Status: ADM IN Y Location: [place] [address] ADDENDUM by Fatmata Gutiérrez on 10/05/18 at 1104 Code Visit ATTENDING PHYSICIAN DISCHARGE NOTE: I have seen and examined the patient independently and agree with the assessment, plan, history per [] as noted. Discharge Diagnoses: (1) Acute on Chronic Hypoxic Respiratory Failure secondary to Acute on Chronic Diastolic CHF Exacerbation (2) Acute E. Coli Urinary Tract Infection (3) MRSA, GNR Lactose Cabbage Salter, Proteus Chronic BL LE Chronic Venous Stasis [...] LE Chronic Venous Stasis Ulcers/Wounds following at [facility] who presented to the [facility] ED on 10/01/18 w/ history of transition from snf facility to ED secondary to dyspnea, lethargy, [...] Pseudomonas species, Proteus species, Gram-negative yousif lactose it data architect, ID consulted and felt chronic wounds only [...] hospital summary above. Inpatient E AND M: [id number] Disch Hosp 10/05/18 1104 <Electronically signed by [...] venous stasis wounds/ulcerations with MRSA, GNR lactose it data architect, Proteus - Secondary Discharge Diagnosis Chronic Problems [...] Henry Browne MD at 15:13 EST Tel [phone], Service support , Consultations 10/01/18 17:15 Consult: Onc/Wound/drop press hand Routine Comment: Reason for Consult:: RLE wound [...] venous stasis wounds/ulcerations with MRSA, GNR lactose it data architect, Proteus-patient seen by ID. Wounds do not [...] unit PO QWEEK 10/01/18 Hydrocodone Bitart/Apap 5-325 [Ten Sleep 5/325] 1 tablet PO Q8H PRN PRN [...] With: Abdiel Arevalo MD - May see TUBE TRAILER FILLER/PA When: 1-2 Weeks Disposition: Care Home facility Minutes spent on discharge:: 35 Patient Condition:: Stable Medical Necessity - Tobacco Use Smoking Status: Unknown if ever smoked Meaningful Use Info Meaningful Use Diagnoses (Choose all that apply): CHF - CHF ANKIT/ARB ordered at discharge?: Yes Reason ANKIT/ARB not ordered?: Worsening renal dysfunctn Documented LVEF (%): 65 10/05/18 1056 <Electronically signed by Juana PEREZ> Date Juana PEREZ 10/05/18 1103<Electronically signed by Fatmata Gutiérrez > Cosigner Signature (if applicable): Date Fatmata Gutiérrez CC: CHRIS Velazquez; Fatmata Gutiérrez; Mani Newman MD Signed TRANSFER TO [facility] Observed: 10/05/2018 Status: F Source: [facility] 10:40 AM [facility] REPOSITORY [facility] Medical Records Department [address] [place] [address] Transfer to [facility] MR#: [id number] Acct: [id number] Name: KRISTEN BELTRANNicola Desai Rep #: [id number] : 1935 82 From: Juana PEREZ PCP: Mani Newman MD Status: ADM IN [place] (Patient) (Health Ins. Claim No.) (Day of Discharge to Facility) Certification of patient admission REQUIRED AT TIME OF ADMISSION. I CERTIFY THAT POST-HOSPITAL ECF SERVICES ARE REQUIRED TO BE GIVEN ON AN IN-PATIENT BASIS BECAUSE OF THE ABOVE NAMED PATIENT'S NEED FOR CORRECTION CARE ON A CONTINUING BASIS FOR THE CONDITION(S) FOR WHICH HE/SHE WAS RECEIVING IN-PATIENT HOSPITAL SERVICES PRIOR TO HIS/HER TRANSFER TO THE F. 10/05/18 1040 <Electronically signed by Fatmata Gutiérrez [...] with 1500 ml FR. Consider consult to PLAYGROUND SUPERVISOR re: pt reports difficulty swallowing at times. - Follow Up Care Primary Care Physician: Mani Newman MD [Primary Care Provider] - Please follow up with your Primary Care Physician in: 3-5 Days Please Follow Up With: [facility] When: 1 Week Please Follow Up With: Abdiel Arevalo MD - May see TUBE TRAILER FILLER/PA When: 1-2 Weeks 10/05/18 1040 <Electronically signed by Juana Velazquez TUBE TRAILER FILLER-C> Date Juana Velazquez TUBE TRAILER FILLER-C 10/05/18 1040<Electronically signed by Fatmata Gutiérrez > Cosigner Signature: Date Fatmata Gutiérrez CC: Abdiel Arevalo MD; Jamar Hernandez M.D.; Main Newman MD HH, HEMOGLOBIN AND Collected: 10/05/2018 Status: F Source: [facility] HEMATOCRIT 5:40 AM [facility] REPOSITORY TYPE CODE TESTS RESULT OUT OF RANGE REFERENCE UNITS LAB L100.1300 12.0-15.0 g/dl Low HGB 10.0 LAB L100.1400 37-47 % Low HCT 33.5 Performed By: #### L100.0600 #### [facility] [address], [address] BASIC METABOLIC Collected: 10/05/2018 Status: F Source: [facility] PROFILE (BMP) 5:40 AM [facility] REPOSITORY TYPE CODE TESTS RESULT OUT OF [...] GAP 4 Performed By: #### L500.2500 #### [facility] [address], [address] TYPE AND SCREEN Collected: 10/04/2018 Status: F Source: [facility] 5:02 PM [facility] REPOSITORY Order Comment: RESULTS CALLED TO [facility] 10/04/18 2000 Cruz Bray. REPORT READ BACK BY SAME . CMV [...] NEGATIVE Screen Performed By: #### B101.7450 #### [facility] [address] [place], [address] Collected: 10/04/2018 Status: F Source: [facility] 5:02 PM [facility] REPOSITORY TYPE CODE TESTS RESULT OUT OF REFERENCE UNITS RANGE LAB U100.0000 [id number] TRANSFUSED PRODUCT: T AND S with Crossmatch, Red Cells COUNT: 1 Performed By: #### U100.0000 #### [facility] - refer to report for specific site CONSULTATION Observed: 10/04/2018 Status: F Source: [facility] 3:58 PM [facility] REPOSITORY [facility] Medical Records Department [address] [place] [address] Consultation 10/04/18 1550 MR#: [id number] Acct: [id number] Name: ROSA BELTRAN Rep #: [id number] : 1935 82 From: Abdiel Arevalo MD PCP: Mani Newman MD Status: ADM IN Location: [place] [address] Problem List (1) Coronary artery disease Status: [...] an assisted living center, has a primary pattern filer whose name she cannot recall and [facility], with a long history of coronary artery disease status post stenting approximately 5 years ago at [facility], chronic atrial fibrillation for greater than 5 years on chronic Coumadin therapy and recently switched to Eliquis. In addition she has a history of morbid obesity, diabetes, anasarca, and lower extremity ulcers on her right leg which recently underwent skin grafting. While at the [facility] living [place] she was found on the toilet to be cyanotic and unresponsive. She was brought to [facility] ER where she was given oxygen [...] ORIF. Psychiatric History: No pertinent psych hx LABEL STITCHER History: No pertinent LABEL STITCHER history - *Family History Maternal History Items: - - Patient's father in his 70s with a history of arthritis. The patient's mother at the age of 90 with a history of arthritis. Paternal History Items: Heart Disease Lives: [facility] Smoking Status: Unknown if ever smoked Alcohol: [...] side. Recommend obtaining records from her primary pattern filer at [facility]. Would not recommend stress testing at this [...] PM. Code Visit Inpatient E AND M: 10857 Init Hosp L2 10/04/18 1558 <Electronically signed by Abdiel Arevalo MD> Date Abdiel Arevalo MD Cosigner Signature (if applicable): Date CC: Abdiel Arevalo MD; Jamar Hernandez M.D.; Mani Newman MD Signed CONSULTATION Observed: 10/04/2018 Status: F Source: [facility] 9:24 AM [facility] REPOSITORY [facility] Medical Records Department [address] [place] [address] Consultation 10/04/18919 MR#: [id number] Acct: [id number] Name: ROSA BELTRAN Rep #: [id number] : 1935 82 From: Jamar Hernandez MD PCP: Mani Newman MD Status: ADM IN Y Location: [place] [address] Reason for Consult: Cystitis and chronic right [...] management with Dr. Gutiérrez this morning. 10/04/18 0924 <Electronically signed by Jamar Hernandez MD> Date Jamar Hernandez MD Cosigner Signature (if applicable): Date CC: Abdiel Arevalo MD; Jamar Hernandez M.D.; Mani Newman MD Signed CHEST PA AND LATERAL Observed: 10/04/2018 Status: F Source: [facility] 9:24 AM [facility] REPOSITORY [facility] Imaging Services [address] [place] [address] Chest PA and Lateral MR#: [id number] Acct: [id number] Name: ROSA BELTRAN Rep #: [id number] : 1935 F 82 From: Henry Browne MD PCP: Mani Newman MD Status: ADM IN Study: Chest PA and Lateral Date of Exam: 10/04/18 Exam# [id number] Ordering Dr: Fatmata Gutiérrez STUDY: X-RAY CHEST [...] Henry Browne MD at 15:13 EST Tel [phone], Service support , CC: Fatmata Gutiérrez; Mani Newman MD Automatic Grinder Operator: Signed PROGRESS Observed: 10/04/2018 Status: COMPLETED Source: ROUND TOP 8:39 AM [facility] REPOSITORY HNO ID: [id number] Author: Volodymyr Gilbert Cma Service: (none) Author Type: (none) Type: Progress Notes Filed: 10/04/2018 8:41 AM Note Text: No discharge plans at this time. HH, HEMOGLOBIN AND Collected: 10/04/2018 Status: F Source: [facility] HEMATOCRIT 6:15 AM [facility] REPOSITORY TYPE CODE TESTS RESULT OUT OF RANGE REFERENCE UNITS LAB L100.1300 12.0-15.0 g/dl Low HGB 8.8 LAB L100.1400 37-47 % Low HCT 30.4 Performed By: #### L100.0600 #### [facility] [place], [address] BASIC METABOLIC Collected: 10/04/2018 Status: F Source: [facility] PROFILE (BMP) 6:15 AM [facility] REPOSITORY TYPE CODE TESTS RESULT OUT OF [...] GAP 4 Performed By: #### L500.2500 #### [facility] [address] [facility] [place], [address] 12 LEAD ELECTROCARDIOGRAM Observed: 10/03/2018 Status: F Source: [facility] 3:01 PM [facility] REPOSITORY [facility] Cardiovascular Services [address] [place] [address] 12 Lead EKG 10/01/18 1108 MR#: [id number] Acct: [id number] Name: ROSA BELTRAN Giselle Rep #: [id number] : 1935 82 From: Maicol Hawk MD Attending Dr: Fatmata Gutiérrez Status: ADM IN Ordering Dr: Abdiel Aldrich MD Date: 10/01/18 Location: U Sex: F N Admitted: 10/01/18 Test Reason [...] Abnormal ECG Confirmed by JOSIAH RUIZ, MAICOL ([id number]), assignment desk editor LAURA BUENROSTRO ([id number]) on 10/03/2018 3:01:07 PM Referred By: DC Confirmed By:MAICOL HAWK MD 10/03/18 1501 Date Maicol Hawk MD CC: Fatmata Gutiérrez; Abdiel Aldrich MD; Mani Newman MD Signed BASIC METABOLIC Collected: 10/03/2018 Status: F Source: [facility] PROFILE (BMP) 6:10 AM [facility] REPOSITORY TYPE CODE TESTS RESULT OUT OF [...] GAP 6 Performed By: #### L500.2500 #### [facility] [address], [address] CBC W/DIFF, AUTOMATED Collected: 10/03/2018 Status: F Source: [facility] 6:10 AM [facility] REPOSITORY TYPE CODE TESTS RESULT OUT OF [...] Lymph 1.58 Performed By: #### L100.0100 #### [facility] [address] [facility] [place], [address] ECHOCARDIOGRAM COMPLETE Observed: 10/02/2018 Status: F Source: [facility] 12:07 PM [facility] REPOSITORY [facility] Cardiovascular Services [address] [address] Echo Complete 10/02/18 1022 MR#: [id number] Acct: [id number] Name: ROSA BELTRAN Rep #: [id number] : 1935 82 From: Basil Fermin MD Attending Dr: Fatmata Gutiérrez Status: ADM IN Ordering Dr: Olivia Lees MD Date: 10/01/18 Location: [facility] Sex: F N Admitted: 10/01/18 Reason For [...] Dictated: 10/02/18 1022 Date Transcribed: 10/02/18 1206 Automatic Grinder Operator: Signed MRSA WOUND DNA BY Collected: 10/02/2018 Status: F Source: [facility] PCR 11:50 AM [facility] REPOSITORY Order Comment: Specimen Source? LEG TYPE CODE TESTS RESULT OUT OF REFERENCE UNITS RANGE LAB L8200.1100 Negative High MRSA POSITIVE RESULT Result Comment: CALLED TO Samir MEDRANO 10/02/18 1612 BY [facility] LAB L8200.1150 Negative High SA RESULT POSITIVE Performed By: #### L8200.1075 #### [facility] [address], [address] Observed: 10/02/2018 Status: F Source: [facility] CULTURE, WOUND 11:50 AM [facility] REPOSITORY Gram Stain Gram Stain 1+ White Blood Cells 2+ Gram negative rods Wound Culture Copy of report sent to Infection Control Printer [id number] 10/05/18 0657 DORIS. ORGANISM 1: Pseudomonas aeroginosa Amount Growth 3+ [...] <=1 S (NF) indicates non-formulary drug at [facility]. Approval by Infectious Disease Specialist required [...] >=320 R (NF) indicates non-formulary drug at [facility]. Approval by Infectious Disease Specialist required [...] <=20 S (NF) indicates non-formulary drug at [facility]. Approval by Infectious Disease Specialist required [...] 1 S (NF) indicates non-formulary drug at [facility]. Approval by Infectious Disease Specialist required before non-formulary drugs may be ordered and/or dispensed. * CLSI guidelines does not recommend testing of cephalosporins. This interpretation is deduced from Beta-lactam/penicillin results. Performed By: #### M100.1400 #### [facility] [address] [place], [address] CBC W/DIFF, AUTOMATED Collected: 10/02/2018 Status: F Source: [facility] 6:20 AM [facility] REPOSITORY TYPE CODE TESTS RESULT OUT OF [...] Lymph 2.09 Performed By: #### L100.0100 #### [facility] [address] [place], [address] BASIC METABOLIC Collected: 10/02/2018 Status: F Source: [facility] PROFILE (BMP) 6:20 AM [facility] REPOSITORY TYPE CODE TESTS RESULT OUT OF [...] GAP 6 Performed By: #### L500.2500 #### [facility] [address] [facility] [place], [address] EMERGENCY DEPARTMENT Observed: 10/01/2018 Status: F Source: [facility] SUMMARY 4:54 PM [facility] REPOSITORY [facility] Medical Records Department [address] [place] [address] Emergency Department Summary 10/01/18 1110 MR#: [id number] Acct: [id number] Name: ROSA BELTRAN Rep #: [id number] : 1935 82 From: Abdiel Aldrich MD [...] for her. She has a history of [place] and coronary disease. History of CHF and [...] 3. CHF This note was generated with Mediumation software. It may contain incorrect words, spelling, [...] your Primary Care Provider. Call [facility] ([phone]) or report to the closest Emergency Room. Call 911 if necessary. 10/01/18 1654 <Electronically signed by Abdiel Aldrich MD> Date Abdiel Aldrich MD Cosigner Signature (If Indicated): Date CC: Mani Newman MD HISTORY AND PHYSICAL Observed: 10/01/2018 Status: F Source: [facility] EXAM 1:20 PM [facility] REPOSITORY [facility] Medical Records Department [address] [place] [address] History and Physical 10/01/18 1305 MR#: [id number] Acct: [id number] Name: ROSA BELTRAN Rep #: [id number] : 1935 82 From: Olivia Lees MD PCP: Mani Newman MD Status: ADM IN Location: [place] [address]-1 Problem List (1) Coronary artery disease Status: [...] comorbidities as mentioned above transferred from the senior care because of shortness of breath, lethargy and [...] she has been on oxygen at the senior care. She states that she is usually on [...] ORIF. Psychiatric History: No pertinent psych hx LABEL STITCHER History: No pertinent LABEL STITCHER history Lives: [facility] Smoking Status: Unknown if ever smoked Alcohol: [...] 82 years old female patient transferred from senior care because of shortness of breath, lethargy and [...] patient, she is on oxygen at the senior care at 2-3 L. At this time, she [...] Continue Eliquis. This note was generated with TheCreator[employer] dictation software. It may contain incorrect words, spelling, and punctuation that were not noted in checking the note before signing. Code Visit Inpatient E AND M: 10731 Init Hosp L3 10/01/18 1320 <Electronically signed by Olivia Lees MD> Date Olivia Lees MD Cosigner Signature: Date (if applicable) CC: Olivia Lees; Mani Newman MD Signed Observed: 10/01/2018 Status: F Source: [facility] CULTURE, URINE 11:50 AM [facility] REPOSITORY Order Date: 10/01/18 Urine Culture ORGANISM 1: Escherichia coli [place] Count >100,000 Escherichia coli: REACTION Amoxacillin/Clavulanic Acid [...] <=20 S (NF) indicates non-formulary drug at [facility]. Approval by Infectious Disease Specialist required before non-formulary drugs may be ordered and/or dispensed. Performed By: #### M100.0650 #### [facility] [address] [place], [place], [address] Observed: 10/01/2018 Status: F Source: [facility] CULTURE, BLOOD (WB) 11:45 AM [facility] REPOSITORY BC No growth in 5 days. Performed By: #### M200.1000 #### [facility] [address] [place], [place], [address] Observed: 10/01/2018 Status: F Source: [facility] INFLUENZA A+B (RAPID 11:41 AM [facility] CHARLIE) REPOSITORY FLU A/B Rapid Negative test results should be confirmed by culture. Order Rapid Viral Culture for Influenzae A+B ([id number]) if clinically indicated. Influenza Ag, Direct Presumptive NEGATIVE for Influenza A/B Antigen (See Note) Performed By: #### M101.0101 #### [facility] [address] [place], [place], [address] URINALYSIS, COMPLETE Collected: 10/01/2018 Status: F Source: [facility] 11:00 AM [facility] REPOSITORY Order Comment: How was Urine Obtained? [...] URINE SEEN Performed By: #### L400.0001 #### [facility] [address], [address] CHEST 1 VIEW Observed: 10/01/2018 Status: F Source: [facility] (PORTABLE) 10:43 AM [facility] Imaging Services [address] [place] [place] [address] Chest 1 View (Portable) MR#: [id number] Acct: [id number] Name: Rosa Beltran Rep #: [id number] : 1935 F 82 From: Josh Ge MD PCP: Mani Newman MD Status: PRE ER Study: Chest 1 View (Portable) Date of Exam: 10/01/18 Exam# [id number] Ordering Dr: Abdiel Aldrich MD STUDY: X-RAY [...] CC: Abdiel Aldrich MD; Mani Newman MD Automatic Grinder Operator: Signed ABDOMEN/PELVIS WITHOUT Observed: 10/01/2018 Status: F Source: [facility] CONT 10:43 AM [facility] REPOSITORY [facility] Imaging Services [address] [place] [place] [address] Abdomen/Pelvis without Cont MR#: [id number] Acct: [id number] Name: ROSA BELTRAN Rep #: [id number] : 1935 F 82 From: Javier Serrano MD PCP: Mani Newman MD Status: REG ER Study: Abdomen/Pelvis without Cont Date of Exam: 10/01/18 Exam# [id number] Ordering Dr: Abdiel Aldrich MD STUDY: CT [...] CC: Abdiel Aldrich MD; Mani Newman MD Automatic Grinder Operator: Signed CBC W/DIFF, AUTOMATED Collected: 10/01/2018 Status: F Source: [facility] 10:40 AM [facility] REPOSITORY TYPE CODE TESTS RESULT OUT OF [...] Lymph 1.12 Performed By: #### L100.0100 #### [facility] [address], [address] PROTHROMBIN TIME W/INR Collected: 10/01/2018 Status: F Source: [facility] 10:40 AM [facility] REPOSITORY TYPE CODE TESTS RESULT OUT OF RANGE REFERENCE UNITS LAB L300.4150 11.7-14.9 SECONDS High PROTIME 16.8 LAB L300.4200 Normal INR 1.4 Performed By: #### L300.3900, L300.4310 #### [facility] [address] [facility] [place], [address] PARTIAL THROMBOPLAST Collected: 10/01/2018 Status: F Source: [facility] 10:40 AM [facility] REPOSITORY TYPE CODE TESTS RESULT OUT OF REFERENCE UNITS RANGE LAB L300.4310 24.1-36.2 Seconds High PTT 40.0 Performed By: #### L300.3900, L300.4310 #### [facility] [address] [facility] [place], [address] COMPREHENSIVE METABOLIC Collected: 10/01/2018 Status: F Source: [facility] PROFIL 10:40 AM [facility] REPOSITORY TYPE CODE TESTS RESULT OUT OF [...] Performed By: #### L500.4050, L501.2450, L501.4010 #### [facility] [address] [place], [place], [address] LIPASE Collected: 10/01/2018 Status: F Source: [facility] 10:40 AM [facility] REPOSITORY TYPE CODE TESTS RESULT OUT OF REFERENCE UNITS RANGE LAB L501.2450 73-393 U/L Low LIPASE 50 Performed By: #### L500.4050, L501.2450, L501.4010 #### [facility] [address] [place], [place], [address] TROPONIN-I Collected: 10/01/2018 Status: F Source: [facility] 10:40 AM [facility] REPOSITORY TYPE CODE TESTS RESULT OUT OF RANGE REFERENCE UNITS LAB L501.4010 <0.045 ng/mL Normal < 0.015 TROPONIN-I Result Comment: TROPONIN-I EXPECTED VALUES <0.045 Negative 0.045 - 0.590 Consistent with Cardiac Damage > OR = 0.600 Critical Value Not every elevated troponin is indicative of NJ. These values should be used with clinical judgement in examining the patient's clinical picture for diagnosis. To establish a diagnosis of NJ versus myocardial injury, there must be a demonstrated rise and/or fall in the troponin values, in addition to ischemic symptoms, EKG changes, new regional wall motion abnormality, and/or angiographical evidence. PLEASE NOTE: REFERENCE RANGES EDITED 18 Performed By: #### L500.4050, L501.2450, L501.4010 #### [facility] [address] [facility] [place], [address] LACTIC ACID Collected: 10/01/2018 Status: F Source: [facility] 10:40 AM [facility] REPOSITORY Order Comment: Yes/No query for Sepsis Lactate Rule Y TYPE CODE TESTS RESULT OUT OF RANGE REFERENCE UNITS LAB L503.6005 0.4-2.0 mmol/L Normal LACTIC ACID 1.4 Performed By: #### L503.6005 #### [facility] [address] [place], [address] BNP,B-TYPE NATRIURETIC Collected: 10/01/2018 Status: F Source: [facility] PEPTIDE 10:40 AM [facility] REPOSITORY TYPE CODE TESTS RESULT OUT OF RANGE REFERENCE UNITS LAB L503.6620 0-100 pg/mL High B-TYPE 445.0 HERMELINDA PEP Performed By: #### L503.6620 #### [facility] [address] [facility] [place] [place], [address] Observed: 10/01/2018 Status: F Source: [facility] CULTURE, BLOOD (WB) 10:40 AM [facility] REPOSITORY BC No growth in 5 days. Performed By: #### M200.1000 #### [facility] [address] [place], [address] PROGRESS Observed: 09/27/2018 Status: COMPLETED Source: ROUND TOP 8:57 AM [facility] REPOSITORY HNO ID: [id number] Author: Volodymyr Gilbert Cma Service: (none) Author Type: (none) Type: Progress Notes Filed: 09/27/2018 8:58 AM Note Text: Left message for to return call #[phone]. Patient still @ [facility]. CBC-COMPLETE BLOOD CNT Collected: 09/26/2018 Status: F Source: [facility] NO DIFF 5:25 AM [facility] REPOSITORY Order Comment: 113 TYPE CODE TESTS [...] MPV 9.9 Performed By: #### L100.0500 #### [facility] [address] [place], [address] BASIC METABOLIC Collected: 09/26/2018 Status: F Source: [facility] PROFILE (BMP) 5:25 AM [facility] REPOSITORY Order Comment: 113 TYPE CODE TESTS [...] GAP 4 Performed By: #### L500.2500 #### [facility] [address] [place], [address] PROGRESS Observed: 09/20/2018 Status: COMPLETED Source: [facility] 8:58 AM [facility] REPOSITORY HNO ID: [id number] Author: Volodymyr Gilbert Doors Prefitter Service: (none) Author Type: (none) Type: Progress Notes Filed: 09/20/2018 8:59 AM Note Text: Left message for SW to return call #[phone] PROGRESS Observed: 09/13/2018 Status: COMPLETED Source: [facility] 9:53 AM [facility] REPOSITORY HNO ID: [id number] Author: Volodymyr Gilbert Cma Service: (none) Author Type: (none) Type: Progress Notes Filed: 09/13/2018 9:53 AM Note Text: Left message for SW to return my call for an update. CBC-COMPLETE BLOOD CNT Collected: 09/12/2018 Status: F Source: [facility] NO DIFF 6:10 AM [facility] REPOSITORY Order Comment: 113 TYPE CODE TESTS [...] MPV 10.3 Performed By: #### L100.0500 #### [facility] [address] [place], [place], [address] BASIC METABOLIC Collected: 09/12/2018 Status: F Source: [facility] PROFILE (BMP) 6:10 AM [facility] REPOSITORY Order Comment: 113 TYPE CODE TESTS [...] GAP 6 Performed By: #### L500.2500 #### [facility] [address] [place], [address] PROGRESS Observed: 09/07/2018 Status: COMPLETED Source: [facility] 10:00 AM [facility] REPOSITORY HNO ID: [id number] Author: Volodymyr Gilbert Cma Service: (none) Author Type: (none) Type: Progress Notes Filed: 09/07/2018 10:02 AM Note Text: No discharge plans in place at this time. PROGRESS Observed: 08/30/2018 Status: COMPLETED Source: [facility] 9:23 AM [facility] REPOSITORY HNO ID: [id number] Author: Volodymyr Gilbert Cma Service: (none) Author Type: (none) Type: Progress Notes Filed: 08/30/2018 9:25 AM Note Text: Left message for to return call #[phone] CBC-COMPLETE BLOOD CNT Collected: 08/29/2018 Status: F Source: [facility] NO DIFF 5:40 AM [facility] REPOSITORY Order Comment: ROOM 113 TYPE CODE [...] 9.9 Performed By: #### L100.0500, L100.4500 #### [facility] [address] [place], [place], [address] DIFFERENTIAL COMMENT Collected: 08/29/2018 Status: F Source: [facility] 5:40 AM [facility] REPOSITORY Order Comment: ROOM 113 TYPE CODE TESTS RESULT OUT OF RANGE REFERENCE UNITS LAB L100.4500 Normal SMEAR COMMENT SCANNED Result Comment: 1+ HYPOCHROMIA Performed By: #### L100.0500, L100.4500 #### [facility] [address] [place], [place], [address] COMPREHENSIVE METABOLIC Collected: 08/29/2018 Status: F Source: [facility] FORBES 5:40 AM [facility] REPOSITORY Order Comment: ROOM 113 TYPE CODE [...] GAP 3 Performed By: #### L500.4050 #### [facility] [address] [place], [address] PROGRESS Observed: 08/24/2018 Status: COMPLETED Source: [facility] 9:14 AM [facility] REPOSITORY HNO ID: [id number] Author: Volodymyr Harman [facility] Service: (none) Author Type: (none) Type: Progress Notes Filed: 08/24/2018 9:17 AM Note Text: No discharge plans in place at this time. PROGRESS Observed: 08/16/2018 Status: COMPLETED Source: [facility] 9:29 AM [facility] REPOSITORY HNO ID: [id number] Author: Volodymyr Harman [facility] Service: (none) Author Type: (none) Type: Progress Notes Filed: 08/16/2018 9:30 AM Note Text: I called and spoke with [facility] who states Rosa was transferred to their facility last week. Unable to reach , but they will give her the message and call with any discharge plans/updats. CBC-COMPLETE BLOOD CNT Collected: 08/15/2018 Status: F Source: [facility] NO DIFF 5:05 AM [facility] REPOSITORY Order Comment: RM 113 TYPE CODE [...] 10.1 Performed By: #### L100.0500, L100.4500 #### [facility] [address] [place], [address] DIFFERENTIAL COMMENT Collected: 08/15/2018 Status: F Source: [facility] 5:05 AM [facility] REPOSITORY Order Comment: RM 113 TYPE CODE TESTS RESULT OUT OF RANGE REFERENCE UNITS LAB L100.4500 Normal SMEAR COMMENT COMMENT Result Comment: SLIDE SCANNED - 1+ ANISO NOTED. Performed By: #### L100.0500, L100.4500 #### [facility] [address] [place], [address] COMPREHENSIVE METABOLIC Collected: 08/15/2018 Status: F Source: [facility] 5:05 AM [facility] REPOSITORY Order Comment: RM 113 TYPE CODE [...] Performed By: #### L500.4050, L500.4100, L501.9520 #### [facility] [address] [place], [address] LIPID PROFILE Collected: 08/15/2018 Status: F Source: [facility] 5:05 AM [facility] REPOSITORY Order Comment: RM 113 TYPE CODE [...] Performed By: #### L500.4050, L500.4100, L501.9520 #### [facility] [address] [place], [address] THYROID STIM HORMONE Collected: 08/15/2018 Status: F Source: [facility] (TSH) 5:05 AM [facility] REPOSITORY Order Comment: RM 113 TYPE CODE TESTS RESULT OUT OF RANGE REFERENCE UNITS LAB L501.9520 0.358-3.74 uIU/mL Normal TSH 3.06 Performed By: #### L500.4050, L500.4100, L501.9520 #### [facility] [address] [place], [address] VITAMIN D,25 HYDROXY Collected: 08/15/2018 Status: F Source: [facility] 5:05 AM [facility] REPOSITORY Order Comment: RM 113 TYPE CODE TESTS RESULT OUT OF RANGE REFERENCE UNITS LAB L506.1000 29.95-100.01 ng/mL Normal Vitamin D 43.2 25-OH Result Comment: Vitamin D 25(OH) Status Range Deficiency <20 ng/mL (50nmol/L) Insuffciency 20 - 30 ng/mL (50 - 75 nmol/L) Sufficiency 30 - 100 ng/mL (75 - 250 nmol/L) Toxicity >100 ng/mL (>250 nmol/L) Performed By: #### L506.1000 #### [facility] [address] [place], [place], [address] PROGRESS Observed: 08/09/2018 Status: COMPLETED Source: ROUND TOP 12:09 PM [facility] REPOSITORY HNO ID: [id number] Author: Volodymyr Gilbert Cma Service: (none) Author Type: (none) Type: Progress Notes Filed: 08/09/2018 12:14 PM Note Text: I spoke with KUMAR Velasquez at [facility] who states she's been in contact with Helena at [facility] in [place] and Rosa will potentially be transferring to [facility] today. She will be there for rehab/therapy and wound care and will hopefully will be able to be discharged home at some point. PRALB Collected: 08/09/2018 Status: F Source: [facility] 5:48 AM [facility] REPOSITORY TYPE CODE TESTS RESULT OUT OF REFERENCE UNITS RANGE LAB PRALB(LOIN 18.0-38.0 mg/dL C) Low Prealbumin 9.8 Performed By: #### PRALB #### [facility] [address] [place] [address] CNPTOUTREACH Observed: 08/08/2018 Status: COMPLETED Source: R[facility] 12:00 AM [facility] REPOSITORY Patient Outreach ([facility]) ROSA BELTRAN L ([id number]) 1935 F Date Time Provider Department 08/08/18 MANI NEWMAN [facility] During your visit today, we recorded the following information about you: Allergies As of Date: 08/08/2018 (No Known Allergies) Date Reviewed: 06/27/2018 Reviewed by: Belle Ignacio RN - Fully Assessed Visit Diagnosis:Medication management [Z79.899] Order(s):LIPID PANEL BASIC [SQLIPB] Order #: [id number] FUTURE Prescriptions as of 08/08/2018 Sig: MENTHOL [...] Anemia [D64.9] INVALID FOR* Encounter Status:Closed by [employer]), PRODUSER on 09/08/18 CBC Collected: 08/07/2018 Status: F Source: [facility] 5:50 AM [facility] REPOSITORY TYPE CODE TESTS [...] 6.6-10.5 fL MPV 7.8 Performed By: #### CBC, ADIFF, ANEU, GFR, BMP #### [address] [address] .AUTO DIFF Collected: 08/07/2018 Status: F Source: [facility] 5:50 AM [facility] REPOSITORY TYPE CODE TESTS RESULT [...] 0.10 Absolute Performed By: #### CBC, ADIFF, ANEU, GFR, BMP #### [address] [address] .NEUABS Collected: 08/07/2018 Status: F Source: [facility] 5:50 AM [facility] REPOSITORY TYPE CODE TESTS RESULT OUT OF REFERENCE UNITS RANGE LAB ANEU(LOINC) 2.25-8.10 10 3/mcL Neutrophil, 4.50 Absolute Performed By: #### CBC, ADIFF, ANEU, GFR, BMP #### [address] [address] .GFR Collected: 08/07/2018 Status: F Source: [facility] 5:50 AM [facility] REPOSITORY TYPE CODE TESTS RESULT OUT OF REFERENCE UNITS RANGE LAB GFRAA(LOINC ml/min/1.73 ) sqm GFR >60 Jamaican Result Comment: GFR Population mean for , [...] 15 mL/min/1.73 square meters Performed By: #### GABRIELLE, DORA, ANEU, GFR, BMP #### [address] [address] BMP Collected: 08/07/2018 Status: F Source: [facility] 5:50 AM [facility] REPOSITORY TYPE CODE TESTS RESULT [...] Calcium Lvl 7.8 Performed By: #### CBC, ADIFF, ANEU, GFR, BMP #### [place] [address] PROGRESS Observed: 08/04/2018 Status: COMPLETED Source: [place] [place] 10:57 AM [facility] REPOSITORY HNO ID: [id number] Author: Volodymyr Gilbert [facility] Service: (none) Author Type: (none) Type: Progress Notes Filed: 08/04/2018 11:05 AM Note Text: I called and spoke with KUMAR Velasquez at [facility] ([phone]) who states Rosa is doing well. This [...] health care set up) or look at residential care facilities. They may have a decision next week. PROGRESS Observed: 08/03/2018 Status: COMPLETED Source: [place] [place] 2:49 PM [facility] REPOSITORY HNO ID: [id number] Author: Volodymyr Gilbert [facility] Service: (none) Author Type: (none) Type: Progress Notes Filed: 08/03/2018 2:50 PM Note Text: Left message with Eva [phone] (she will call me back) CBC Collected: 08/03/2018 Status: F Source: [facility] 5:43 AM [facility] REPOSITORY TYPE CODE TESTS [...] 6.6-10.5 fL MPV 7.6 Performed By: #### CBC, BMP, GFR, DIFF, MORPH #### [address] [address] BMP Collected: 08/03/2018 Status: F Source: [facility] 5:43 AM [facility] REPOSITORY TYPE CODE TESTS RESULT [...] Low Calcium Lvl 7.5 Performed By: #### CBC, BMP, GFR, DIFF, MORPH #### [address] [address] .GFR Collected: 08/03/2018 Status: F Source: [facility] 5:43 AM [facility] REPOSITORY TYPE CODE TESTS RESULT OUT OF REFERENCE UNITS RANGE LAB GFRAA(LOINC ml/min/1.73 ) sqm GFR >60 Jamaican Result Comment: GFR Population mean for , [...] mL/min/1.73 square meters Performed By: #### CBC, BMP, GFR, DIFF, MORPH #### [place] [address] .MANUAL DIFF Collected: 08/03/2018 Status: F Source: [facility] 5:43 AM [place] [facility] REPOSITORY TYPE CODE TESTS RESULT [...] Basophil, Abs 0.10 Manual Performed By: #### CBC, BMP, GFR, DIFF, MORPH #### [address] [address] .MORPH Collected: 08/03/2018 Status: F Source: [facility] 5:43 AM [facility] REPOSITORY TYPE CODE TESTS RESULT OUT OF REFERENCE UNITS RANGE LAB PLTE(LOINC ) Platelet Estimate Normal LAB ANIS(LOINC ) Anisocytosis Slight LAB POIK(LOINC ) Poik Slight LAB HYPC(LOINC ) Hypochrom Slight LAB POLC(LOINC ) Polychrom Slight LAB STMT(LOINC ) Stomatocytes Few Performed By: #### CBC, BMP, GFR, DIFF, MORPH #### [address] [address] PROGRESS Observed: 08/02/2018 Status: COMPLETED Source: [facility] 8:48 AM [facility] REPOSITORY O ID: [id number] Author: Volodymyr Gilbert Cma Service: (none) Author Type: (none) Type: Progress Notes Filed: 08/02/2018 8:51 AM Note Text: I called [facility] the past several weeks and was unable to get a hold of anyone, but Left message for to return call #[phone]. I got a hold of someone today and they said the SW if out of the office at this time, but they took my Name and direct number so they will give her the message and have her give me a call back. CBC Collected: 08/01/2018 Status: F Source: [facility] 5:21 AM [facility] REPOSITORY TYPE CODE TESTS RESULT [...] 6.6-10.5 fL MPV 7.7 Performed By: #### CBC, DIFF, MORPH #### [place] [address] .MANUAL DIFF Collected: 08/01/2018 Status: F Source: [facility] 5:21 AM [facility] REPOSITORY TYPE CODE TESTS RESULT [...] Basophil, Abs 0.06 Manual Performed By: #### CBC, DIFF, MORPH #### [address] [address] .MORPH Collected: 08/01/2018 Status: F Source: [facility] 5:21 AM [facility] REPOSITORY TYPE CODE TESTS RESULT OUT OF REFERENCE UNITS RANGE LAB PLTE(LOINC ) Platelet Estimate Decreased LAB ANIS(LOINC ) Anisocytosis Slight LAB POIK(LOINC ) Poik Slight LAB OVAL(LOINC ) Ovalocytes Few Performed By: #### CBC, DIFF, MORPH #### [place] [address] CBC Collected: 07/31/2018 Status: F Source: [facility] 8:11 AM [facility] REPOSITORY TYPE CODE TESTS RESULT [...] 6.6-10.5 fL MPV 7.2 Performed By: #### CBC, ADIFF, ANEU #### [place] [id number] .AUTO DIFF Collected: 07/31/2018 Status: F Source: [facility] 8:11 AM [facility] REPOSITORY TYPE CODE TESTS RESULT [...] ) Basophil, 0.10 Absolute Performed By: #### CBCDORA ANEU #### [place] [address] .NEUABS Collected: 07/31/2018 Status: F Source: [facility] 8:11 AM [facility] REPOSITORY TYPE CODE TESTS RESULT OUT OF REFERENCE UNITS RANGE LAB ANEU(LOINC) 2.25-8.10 10 3/mcL Neutrophil, 2.80 Absolute Performed By: #### CBCDORA ANEU #### [place] [address] CBC Collected: 07/30/2018 Status: F Source: [facility] 5:36 AM [facility] REPOSITORY TYPE CODE TESTS RESULT [...] fL MPV 7.6 Performed By: #### DORA ANTHONY, ANEU #### [place] [address] .AUTO DIFF Collected: 07/30/2018 Status: F Source: [facility] 5:36 AM [facility] REPOSITORY TYPE CODE TESTS RESULT [...] Basophil, 0.00 Absolute Performed By: #### DORA ANTHONY, ANEU #### [place] [address] .NEUABS Collected: 07/30/2018 Status: F Source: [facility] 5:36 AM [facility] REPOSITORY TYPE CODE TESTS RESULT OUT OF REFERENCE UNITS RANGE LAB ANEU(LOINC) 2.25-8.10 10 3/mcL Low Neutrophil, 1.40 Absolute Performed By: #### DORA ANTHONY, ANEU #### [place] [address] RAPTEG Collected: 07/30/2018 Status: F Source: [facility] 5:36 AM [facility] REPOSITORY TYPE CODE TESTS RESULT OUT OF REFERENCE UNITS RANGE LAB RTEGR(LOINC 0.0-1.0 minutes ) R TEG 0.7 Rapid LAB KTEGR(LOINC 1.0-2.0 minutes ) K TEG 1.0 Rapid LAB ATEGR(LOINC 64.0-80.0 degrees ) Angle TEG 78.2 Rapid LAB MATEGR(LOIN 52.0-71.0 mm C) MA TEG 60.2 Rapid LAB OH68BOY(MONI 0.0-8.0 % NC) LY30 0.1 Lysis TEG LAB TEGACT(LOIN 86.0-118.0 second(s) C) TEG ACT 113.0 Performed By: #### RAPTEG #### [address] [address] CBC Collected: 07/29/2018 Status: F Source: [facility] 5:46 AM [facility] REPOSITORY TYPE CODE TESTS RESULT [...] Performed By: #### CBC, ADIFF, ANEU #### [address] [address] .AUTO DIFF Collected: 07/29/2018 Status: F Source: [facility] 5:46 AM [facility] REPOSITORY TYPE CODE TESTS RESULT [...] Performed By: #### CBC, ADIFF, ANEU #### [place] [address] .NEUABS Collected: 07/29/2018 Status: F Source: [facility] 5:46 AM [facility] REPOSITORY TYPE CODE TESTS RESULT OUT OF REFERENCE UNITS RANGE LAB ANEU(LOINC) 2.25-8.10 10 3/mcL Low Neutrophil, 1.50 Absolute Performed By: #### CBC, ADIFF, ANEU #### [place] [address] CBC Collected: 07/28/2018 Status: F Source: [facility] 5:32 AM [facility] REPOSITORY TYPE CODE TESTS RESULT [...] 6.6-10.5 fL MPV 7.0 Performed By: #### CBC, ADIFF, ANEU #### [place] [address] .AUTO DIFF Collected: 07/28/2018 Status: F Source: [facility] 5:32 AM [facility] [facility] REPOSITORY TYPE CODE TESTS RESULT [...] Performed By: #### CBC, ADIFF, ANEU #### [place] [address] .NEUABS Collected: 07/28/2018 Status: F Source: [facility] 5:32 AM [facility] REPOSITORY TYPE CODE TESTS RESULT OUT OF REFERENCE UNITS RANGE LAB ANEU(LOINC) 2.25-8.10 10 3/mcL Low Neutrophil, 1.70 Absolute Performed By: #### CBC, ADIFF, ANEU #### [place] [address] TABO Collected: 07/27/2018 Status: F Source: [facility] 12:20 PM [place] [facility] REPOSITORY TYPE CODE TESTS RESULT OUT OF RANGE REFERENCE UNITS LAB ABORH(LOINC ) Unknown ABO/Rh O POS Interp Performed By: #### ABORH, ANTIS #### [place] [address] TABS Collected: 07/27/2018 Status: F Source: [facility] 12:20 PM [facility] REPOSITORY TYPE CODE TESTS RESULT OUT OF REFERENCE UNITS RANGE LAB ANST(LOINC ) Antibody Negative ABSC Screen Tango Performed By: #### ABORH, ANTIS #### [address] [address] RBC (PRODUCT) Collected: 07/27/2018 Status: F Source: [facility] 10:47 AM [facility] REPOSITORY TYPE CODE TESTS RESULT OUT OF REFERENCE UNITS RANGE LAB RBCPR(LOINC ) RBC Product RBC Ready Ready for Pickup Performed By: #### RBCP #### [address] [address] HFP Collected: 07/27/2018 Status: F Source: [facility] 5:24 AM [facility] REPOSITORY TYPE CODE TESTS RESULT [...] ALT/SGPT 9 Performed By: #### HFP #### [address] [address] PROGRESS Observed: 07/26/2018 Status: COMPLETED Source: [facility] 8:50 AM [facility] REPOSITORY HNO ID: [id number] Author: Volodymyr Gilbert Cma Service: (none) Author Type: (none) Type: Progress Notes Filed: 07/26/2018 8:54 AM Note Text: Left message for SW at [facility] to call me back. CBC Collected: 07/26/2018 Status: F Source: [facility] 6:23 AM [facility] REPOSITORY TYPE CODE TESTS RESULT [...] fL MPV 6.8 Performed By: #### CBC, DORA, ANEU #### [address] [address] .AUTO DIFF Collected: 07/26/2018 Status: F Source: [facility] 6:23 AM [facility] REPOSITORY TYPE CODE TESTS RESULT [...] Basophil, 0.00 Absolute Performed By: #### CBC, ADKATHRINE, ANEU #### [address] [address] .NEUABS Collected: 07/26/2018 Status: F Source: [facility] 6:23 AM [facility] REPOSITORY TYPE CODE TESTS RESULT OUT OF REFERENCE UNITS RANGE LAB ANEU(LOINC) 2.25-8.10 10 3/mcL Low Neutrophil, 2.20 Absolute Performed By: #### CBC, ADIFF, ANEU #### [address] [address] CBC Collected: 07/25/2018 Status: F Source: [facility] 6:40 AM [facility] REPOSITORY TYPE CODE TESTS RESULT [...] 6.6-10.5 fL MPV 6.6 Performed By: #### CBC, ADIFF, ANEU, BMP, GFR #### [address] [address] .AUTO DIFF Collected: 07/25/2018 Status: F Source: [facility] 6:40 AM [facility] REPOSITORY TYPE CODE TESTS RESULT [...] 0.00 Absolute Performed By: #### CBC, ADIFF, ANEU, BMP, GFR #### [place] [address] .NEUABS Collected: 07/25/2018 Status: F Source: [facility] 6:40 AM [facility] REPOSITORY TYPE CODE TESTS RESULT OUT OF REFERENCE UNITS RANGE LAB ANEU(LOINC) 2.25-8.10 10 3/mcL Neutrophil, 2.60 Absolute Performed By: #### CBC, ADIFF, ANEU, BMP, GFR #### [place] [address] BMP Collected: 07/25/2018 Status: F Source: [facility] 6:40 AM [facility] REPOSITORY TYPE CODE TESTS RESULT [...] Low Calcium Lvl 7.4 Performed By: #### CBC, ADIFF, ANEU, BMP, GFR #### [address] [address] .GFR Collected: 07/25/2018 Status: F Source: [facility] 6:40 AM [facility] REPOSITORY TYPE CODE TESTS RESULT OUT OF REFERENCE UNITS RANGE LAB GFRAA(LOINC ml/min/1.73 ) sqm GFR >60 Jamaican Result Comment: GFR Population mean for , [...] mL/min/1.73 square meters Performed By: #### CBC, ADIFF, ANEU, BMP, GFR #### [place] [address] CAION Collected: 07/24/2018 Status: F Source: [facility] 6:38 AM [facility] REPOSITORY TYPE CODE TESTS RESULT OUT OF REFERENCE UNITS RANGE LAB CAION(LOINC 1.12-1.32 mmol/L ) Calcium 1.12 Ionized Performed By: #### CAION #### [place] [address] BMP Collected: 07/23/2018 Status: F Source: [facility] 5:33 AM [place] [facility] REPOSITORY TYPE CODE TESTS RESULT [...] Low Calcium Lvl 7.5 Performed By: #### BMP, GFR #### [place] [address] .GFR Collected: 07/23/2018 Status: F Source: [facility] 5:33 AM [facility] REPOSITORY TYPE CODE TESTS RESULT OUT OF REFERENCE UNITS RANGE LAB GFRAA(LOINC ml/min/1.73 ) sqm GFR 57 Jamaican Result Comment: GFR Population mean for , [...] meters Performed By: #### BMP, GFR #### [address] [address] BMP Collected: 07/22/2018 Status: F Source: [facility] 6:26 AM [facility] REPOSITORY TYPE CODE TESTS RESULT [...] Low Calcium Lvl 7.6 Performed By: #### BMP, GFR #### [address] [address] .GFR Collected: 07/22/2018 Status: F Source: [facility] 6:26 AM [facility] [facility] REPOSITORY TYPE CODE TESTS RESULT OUT OF REFERENCE UNITS RANGE LAB GFRAA(LOINC ml/min/1.73 ) sqm GFR 59 Jamaican Result Comment: GFR Population mean for , [...] meters Performed By: #### BMP, GFR #### [place] [address] IR PICC LINE PLACEMENT Observed: 07/21/2018 Status: F Source: [facility] 1:00 PM [place] [facility] REPOSITORY ORIGINAL PROCEDURE(S): 1. PICC placement with fluoroscopy and ultrasound guidance CLASS A LINEMAN: Gay Lam PA-C CLINICAL HISTORY: Patient requires [...] PM BMP Collected: 07/21/2018 Status: F Source: [facility] 7:54 AM [place] [facility] REPOSITORY TYPE CODE TESTS RESULT [...] Calcium Lvl 7.7 Performed By: #### BMP, GFR #### [address] [address] .GFR Collected: 07/21/2018 Status: F Source: [facility] 7:54 AM [facility] REPOSITORY TYPE CODE TESTS RESULT OUT OF REFERENCE UNITS RANGE LAB GFRAA(LOINC ml/min/1.73 ) sqm GFR 54 Jamaican Result Comment: GFR Population mean for , [...] meters Performed By: #### BMP, GFR #### [address] [address] PROGRESS Observed: 07/20/2018 Status: COMPLETED Source: [facility] 10:05 AM [facility] REPOSITORY HNO ID: [id number] Author: Kapil (Mohinder) Milton Service: (none) Author Type: Physical Therapist Type: Progress Notes Filed: 07/20/2018 10:07 AM Note Text: The appointment was cancelled for this patient. During a chart review, it was noted that patient has had a change in medical status and was hospitalized. It appears she is now at [facility]. Patient did not show for this appointment and she is unable to attend Out- pt PT for wound care due to hospitalization. Kapil Rose PT CNTHERAPY Observed: 07/20/2018 Status: COMPLETED Source: [facility] 9:30 AM [facility] REPOSITORY OT/PT/Speech Visit (PTMDRG) ROSA BELTRAN ([id number]) 1935 F Date Time Provider Department 07/20/18 9:30 AM KAPIL ROSE (PT) PTMDRG Date Time Provider Department Winner 07/20/2018 9:30 AM [id number], KELLY (PT)PTMDRG [facility] Reason for Visit: Appointment Cancelled [1023] Primary [...] by mouth once d* Progress Notes: Kapil Rose, PT 07/20/2018 10:07 AM Signed The appointment was cancelled for this patient. During a chart review, it was noted that patient has had a change in medical status and was hospitalized. It appears she is now at [facility]. Patient did not show for this appointment and she is unable to attend Out-pt PT for wound care due to hospitalization. Kapil Rose, PT BMP Collected: 07/20/2018 Status: F Source: [facility] 7:19 AM [facility] REPOSITORY TYPE CODE TESTS RESULT [...] Low Calcium Lvl 7.6 Performed By: #### BMP, GFR #### [place] [address] .GFR Collected: 07/20/2018 Status: F Source: [facility] 7:19 AM [facility] REPOSITORY TYPE CODE TESTS RESULT OUT OF REFERENCE UNITS RANGE LAB GFRAA(LOINC ml/min/1.73 ) sqm GFR 48 Jamaican Result Comment: GFR Population mean for , [...] meters Performed By: #### BMP, GFR #### [place] [address] BMP Collected: 07/19/2018 Status: F Source: [facility] 7:18 AM [facility] REPOSITORY TYPE CODE TESTS [...] 7.4 Performed By: #### BMP, GFR #### [address] [address] .GFR Collected: 07/19/2018 Status: F Source: [facility] 7:18 AM [facility] REPOSITORY TYPE CODE TESTS RESULT OUT OF REFERENCE UNITS RANGE LAB GFRAA(LOINC ml/min/1.73 ) sqm GFR 46 Jamaican Result Comment: GFR Population mean for , [...] meters Performed By: #### BMP, GFR #### [place] [address] BMP Collected: 07/18/2018 Status: F Source: [facility] 6:30 AM [facility] REPOSITORY TYPE CODE TESTS RESULT [...] 7.4 Performed By: #### BMP, GFR #### [place] [address] .GFR Collected: 07/18/2018 Status: F Source: [facility] 6:30 AM [place] [facility] REPOSITORY TYPE CODE TESTS RESULT OUT OF REFERENCE UNITS RANGE LAB GFRAA(LOINC ml/min/1.73 ) sqm GFR 41 Jamaican Result Comment: GFR Population mean for , [...] meters Performed By: #### BMP, GFR #### [address] [address] CBC Collected: 07/17/2018 Status: F Source: [facility] 7:22 [facility] REPOSITORY TYPE CODE TESTS RESULT OUT [...] 6.6-10.5 fL MPV 7.2 Performed By: #### CBC, BMP, GFR, DIFF, MORPH #### [address] [address] BMP Collected: 07/17/2018 Status: F Source: [facility] 7:22 [facility] REPOSITORY TYPE CODE TESTS RESULT OUT [...] Low Calcium Lvl 7.3 Performed By: #### CBC, BMP, GFR, DIFF, MORPH #### [place] [id number] [place] [address] .GFR Collected: 07/17/2018 Status: F Source: [facility] 7:22 AM [facility] REPOSITORY TYPE CODE TESTS RESULT OUT OF REFERENCE UNITS RANGE LAB GFRAA(LOINC ml/min/1.73 ) sqm GFR 39 [place]ican Result Comment: GFR Population mean for , [...] mL/min/1.73 square meters Performed By: #### CBC, BMP, GFR, DIFF, MORPH #### [address] [address] .MANUAL DIFF Collected: 07/17/2018 Status: F Source: [facility] 7:22 AM [place] [facility] REPOSITORY TYPE CODE TESTS RESULT [...] Basophil, Abs 0.00 Manual Performed By: #### CBC, BMP, GFR, DIFF, MORPH #### [address] [address] .MORPH Collected: 07/17/2018 Status: F Source: [facility] 7:22 AM [place] [facility] REPOSITORY TYPE CODE TESTS RESULT OUT OF REFERENCE UNITS RANGE LAB PLTE(LOINC ) Platelet Estimate Normal LAB ANIS(LOINC ) Anisocytosis Slight Performed By: #### CBC, BMP, GFR, DIFF, MORPH #### [address] [address] CBC Collected: 07/16/2018 Status: F Source: [facility] 6:12 AM [place] REPOSITORY TYPE CODE TESTS RESULT [...] 6.6-10.5 fL MPV 7.4 Performed By: #### CBC, ADIFF, ANEU, BMP, GFR #### [place] [address] .AUTO DIFF Collected: 07/16/2018 Status: F Source: [facility] 6:12 AM [place] REPOSITORY TYPE CODE TESTS RESULT [...] 0.10 Absolute Performed By: #### CBC, ADIFF, ANEU, BMP, GFR #### [place] [id number] .NEUABS Collected: 07/16/2018 Status: F Source: [facility] 6:12 AM [place] [facility] REPOSITORY TYPE CODE TESTS RESULT OUT OF REFERENCE UNITS RANGE LAB ANEU(LOINC) 2.25-8.10 10 3/mcL High Neutrophil, 8.40 Absolute Performed By: #### CBC, ADIFF, ANEU, BMP, GFR #### [place] [address] BMP Collected: 07/16/2018 Status: F Source: [facility] 6:12 AM [place] REPOSITORY TYPE CODE TESTS RESULT [...] Low Calcium Lvl 7.3 Performed By: #### CBC, ADIFF, ANEU, BMP, GFR #### [address] [address] .GFR Collected: 07/16/2018 Status: F Source: [facility] 6:12 AM [place] REPOSITORY TYPE CODE TESTS RESULT OUT OF REFERENCE UNITS RANGE LAB GFRAA(LOINC ml/min/1.73 ) sqm GFR 52 Jamaican Result Comment: GFR Population mean for , [...] mL/min/1.73 square meters Performed By: #### CBC, ADIFF, ANEU, BMP, GFR #### [address] [address] TROPI Collected: 07/15/2018 Status: F Source: [facility] 10:39 PM [facility] REPOSITORY TYPE CODE TESTS RESULT [...] ECG changes may help assess possibility of [place]. *Other non-acute coronary syndrome conditions such as CHF, myocarditis, pulmonary emboli, sepsis and cardiac surgery could result in myocardial damage and increased troponin levels. Performed By: #### TROPI #### [address] [address] TROPI Collected: 07/15/2018 Status: F Source: [facility] 10:27 AM [place] [facility] REPOSITORY TYPE CODE TESTS RESULT [...] ECG changes may help assess possibility of [place]. *Other non-acute coronary syndrome conditions such as CHF, myocarditis, pulmonary emboli, sepsis and cardiac surgery could result in myocardial damage and increased troponin levels. Performed By: #### TROPI #### [place] [address] CBC Collected: 07/13/2018 Status: F Source: [facility] 6:02 AM [place] REPOSITORY TYPE CODE TESTS RESULT [...] 6.6-10.5 fL MPV 7.8 Performed By: #### CBC, ADIFF, ANEU, BMP, GFR #### [place] [address] .AUTO DIFF Collected: 07/13/2018 Status: F Source: [facility] 6:02 AM [place] REPOSITORY TYPE CODE TESTS RESULT [...] 0.00 Absolute Performed By: #### CBC, ADIFF, ANEU, BMP, GFR #### [place] [address] .NEUABS Collected: 07/13/2018 Status: F Source: [facility] 6:02 AM [facility] TYPE CODE TESTS RESULT OUT OF REFERENCE UNITS RANGE LAB ANEU(LOINC) 2.25-8.10 10 3/mcL High Neutrophil, 10.20 Absolute Performed By: #### CBC, ADIFF, ANEU, BMP, GFR #### [place] [address] BMP Collected: 07/13/2018 Status: F Source: [facility] 6:02 AM [place] REPOSITORY TYPE CODE TESTS RESULT [...] Low Calcium Lvl 7.1 Performed By: #### CBC, ADIFF, ANEU, BMP, GFR #### [address] [address] .GFR Collected: 07/13/2018 Status: F Source: [facility] 6:02 AM [facility] REPOSITORY TYPE CODE TESTS RESULT OUT OF REFERENCE UNITS RANGE LAB GFRAA(LOINC ml/min/1.73 ) sqm GFR 52 Jamaican Result Comment: GFR Population mean for , [...] mL/min/1.73 square meters Performed By: #### CBC, ADIFF, ANEU, BMP, GFR #### [address] [address] XR TIBIA/FIBULA 2 VIEWS Observed: 07/12/2018 Status: F Source: [facility] 2:20 PM [facility] REPOSITORY ORIGINAL XR TIBIA/FIBULA 2 VIEWS RIGHT [...] PM Observed: 07/12/2018 Status: F Source: [facility] 11:07 AM [place] [facility] REPOSITORY . MICRO - Microbiology [...] Locations *1: This test was performed at: [facility], [address] [place] [address], [address] [place] [address] Performed By: #### CWDP #### [place] [address] CBC Collected: 07/12/2018 Status: F Source: [facility] 5:22 AM [place] REPOSITORY TYPE CODE TESTS RESULT [...] 6.6-10.5 fL MPV 7.6 Performed By: #### CBC, ADIFF, ANEU, MG, PHOS, TSH, T4, FES, CMP, GFR, B12, T3, PRALB #### [address] [address] .AUTO DIFF Collected: 07/12/2018 Status: F Source: [facility] 5:22 AM [facility] REPOSITORY TYPE CODE TESTS RESULT [...] 0.00 Absolute Performed By: #### CBC, ADIFF, ANEU, MG, PHOS, TSH, T4, FES, CMP, GFR, B12, T3, PRALB #### [place] [address] .NEUABS Collected: 07/12/2018 Status: F Source: [facility] 5:22 AM [facility] REPOSITORY TYPE CODE TESTS RESULT OUT OF REFERENCE UNITS RANGE LAB ANEU(LOINC) 2.25-8.10 10 3/mcL High Neutrophil, 13.30 Absolute Performed By: #### CBC, ADIFF, ANEU, MG, PHOS, TSH, T4, FES, CMP, GFR, B12, T3, PRALB #### [place] [address] MG Collected: 07/12/2018 Status: F Source: [facility] 5:22 AM [facility] REPOSITORY TYPE CODE TESTS RESULT OUT OF REFERENCE UNITS RANGE LAB MG(LOINC) 1.6-2.4 mg/dL Magnesium Lvl 2.1 Performed By: #### CBC, ADIFF, ANEU, MG, PHOS, TSH, T4, FES, CMP, GFR, B12, T3, PRALB #### [place] [address] PHOS Collected: 07/12/2018 Status: F Source: [facility] 5:22 AM [facility] REPOSITORY TYPE CODE TESTS RESULT OUT OF REFERENCE UNITS RANGE LAB PHOS(LOINC 2.5-4.5 mg/dL ) Phosphorus 2.5 Performed By: #### CBC, ADIFF, ANEU, MG, PHOS, TSH, T4, FES, CMP, GFR, B12, T3, PRALB #### [place] [address] TSH Collected: 07/12/2018 Status: F Source: [facility] 5:22 [facility] REPOSITORY TYPE CODE TESTS RESULT OUT OF RANGE REFERENCE UNITS LAB TSH(LOINC) 0.360-3.740 mcIU/mL TSH 2.020 Result Comment: Please note as of 05/14/17 new pediatric reference intervals were added for this test. Performed By: #### CBC, ADIFF, ANEU, MG, PHOS, TSH, T4, FES, CMP, GFR, B12, T3, PRALB #### [place] [address] T4 Collected: 07/12/2018 Status: F Source: [facility] 5:22 [facility] REPOSITORY TYPE CODE TESTS RESULT OUT OF RANGE REFERENCE UNITS LAB T4(LOINC) 4.7-11.4 mcg/dL Low T4 4.4 Result Comment: Please note as of 05/14/17 new pediatric reference intervals were added for this test. Performed By: #### CBC, ADIFF, ANEU, MG, PHOS, TSH, T4, FES, CMP, GFR, B12, T3, PRALB #### [place] [address] FES Collected: 07/12/2018 Status: F Source: [facility] 5:22 [facility] REPOSITORY TYPE CODE TESTS RESULT OUT OF RANGE REFERENCE UNITS LAB FE(LOINC) 37-170 mcg/dL Low Iron 13 LAB IBC(LOINC) 250-500 mcg/dL Low TIBC 92 LAB FESAT(LOINC % ) Iron Sat 14 Performed By: #### CBC, ADIFF, ANEU, MG, PHOS, TSH, T4, FES, CMP, GFR, B12, T3, PRALB #### [place] [address] CMP Collected: 07/12/2018 Status: F Source: [facility] 5:22 [facility] REPOSITORY TYPE CODE TESTS RESULT OUT [...] 10-49 U/L ALT/SGPT 17 Performed By: #### CBC, ADIFF, ANEU, MG, PHOS, TSH, T4, FES, CMP, GFR, B12, T3, PRALB #### [place] [id number] .GFR Collected: 07/12/2018 Status: F Source: [facility] 5:[facility] REPOSITORY TYPE CODE TESTS RESULT OUT OF REFERENCE UNITS RANGE LAB GFRAA(LOINC ml/min/1.73 ) sqm GFR 43 [place] Result Comment: GFR Population mean for , [...] mL/min/1.73 square meters Performed By: #### CBC, ADIFF, ANEU, MG, PHOS, TSH, T4, FES, CMP, GFR, B12, T3, PRALB #### [address] [address] B12 Collected: 07/12/2018 Status: F Source: [facility] 5:22 AM [facility] REPOSITORY TYPE CODE TESTS RESULT OUT OF REFERENCE UNITS RANGE LAB B12(LOINC) 211-911 pg/mL High Vitamin B12 1089 Lvl Performed By: #### CBC, ADIFF, ANEU, MG, PHOS, TSH, T4, FES, CMP, GFR, B12, T3, PRALB #### [address] [address] T3 Collected: 07/12/2018 Status: F Source: [facility] 5:22 AM [facility] REPOSITORY TYPE CODE TESTS RESULT OUT OF RANGE REFERENCE UNITS LAB T3(LOINC) 60-181 ng/dL Low Total T3 25 Result Comment: Please note ? as of 05/14/17 new pediatric reference intervals were added for this test. Performed By: #### CBC, ADIFF, ANEU, MG, PHOS, TSH, T4, FES, CMP, GFR, B12, T3, PRALB #### [address] [address] PRALB Collected: 07/12/2018 Status: F Source: [facility] 5:22 AM [facility] REPOSITORY TYPE CODE TESTS RESULT OUT OF REFERENCE UNITS RANGE LAB PRALB(LOIN 18.0-38.0 mg/dL C) Low Prealbumin 5.1 Performed By: #### CBC, ADIFF, ANEU, MG, PHOS, TSH, T4, FES, CMP, GFR, B12, T3, PRALB #### [facility] [address] [place] [address] XR CHEST 1 VIEW Observed: 07/12/2018 Status: F Source: [facility] 4:59 AM [facility] REPOSITORY ORIGINAL XR CHEST 1 VIEW portable [...] AM UA Collected: 07/11/2018 Status: F Source: [facility] 6:40 PM [facility] REPOSITORY TYPE CODE TESTS RESULT [...] Leuk Est Unknown Large Performed By: #### UA, UAMIC #### [place] [address] UAMIC Collected: 07/11/2018 Status: F Source: [facility] 6:40 PM [facility] REPOSITORY TYPE CODE TESTS RESULT [...] Glitter Unknown cells 3-5 Performed By: #### UA, UAMIC #### [place] [address] Observed: 07/11/2018 Status: F Source: [facility] 6:40 PM [facility] REPOSITORY . MICRO - Microbiology PROCEDURE: Urine [...] Resistant Sulfa Pseudomonas aeruginosa Antibiotic THEO Dilutn THEO Interp Ceftazidime >16 Resistant Gentamicin 8 Intermediate Levofloxacin <=2 Susceptible Meropenem <=1 Susceptible Piperacillin/ >64 Resistant Tazobactam Tobramycin <=4 Susceptible Performing Locations *1: This test was performed at: [address] Performed By: #### CUR #### [place] [address] PRO Collected: 07/11/2018 Status: F Source: [facility] 5:31 AM [facility] REPOSITORY TYPE CODE TESTS [...] 2.5 - 3.5 Performed By: #### PRO, CBC, DIFF, MORPH #### [address] [address] #### BMP, GFR #### [place] [address] BMP Collected: 07/11/2018 Status: F Source: [facility] 5:31 AM [facility] REPOSITORY TYPE CODE TESTS RESULT [...] Low Calcium Lvl 7.9 Performed By: #### PRO, CBC, DIFF, MORPH #### [address] [address] #### BMP, GFR #### [address] [address] .GFR Collected: 07/11/2018 Status: F Source: [facility] 5:31 AM [facility] REPOSITORY TYPE CODE TESTS RESULT OUT OF REFERENCE UNITS RANGE LAB GFRAA(LOINC ml/min/1.73 ) sqm GFR 32 Jamaican Result Comment: GFR Population mean for , [...] mL/min/1.73 square meters Performed By: #### PRO, CBC, DIFF, MORPH #### [address] [address] #### BMP, GFR #### [address] [address] CBC Collected: 07/11/2018 Status: F Source: [facility] 5:31 AM [facility] REPOSITORY TYPE CODE TESTS [...] 7.4-10.4 fL MPV 8.1 Performed By: #### PRO, CBC, DIFF, MORPH #### [address] [address] #### BMP, GFR #### [address] [address] .MANUAL DIFF Collected: 07/11/2018 Status: F Source: [place] [address]:31 AM [facility] REPOSITORY TYPE CODE TESTS RESULT [...] Basophil, Abs 0.00 Manual Performed By: #### PRO, CBC, DIFF, MORPH #### [address] [address] #### BMP, GFR #### [address] [address] .MORPH Collected: 07/11/2018 Status: F Source: [facility] 5:31 AM [facility] REPOSITORY TYPE CODE TESTS RESULT OUT OF REFERENCE UNITS RANGE LAB PLTE(LOINC ) Platelet Estimate Normal LAB ANIS(LOINC ) Anisocytosis Slight LAB HYPC(LOINC ) Hypochrom Moderate LAB STMT(LOINC ) Stomatocytes Few LAB TGR(LOINC) Toxic Gran Moderate Performed By: #### PRO, CBC, DIFF, MORPH #### [address] [address] #### BMP, GFR #### [place] [address] PRO Collected: 07/10/2018 Status: F Source: [facility] 5:56 AM [facility] REPOSITORY Order Comment: ordered secondary to warfarin [...] - 3.5 Performed By: #### PRO #### [address] [address] PRO Collected: 07/09/2018 Status: F Source: [facility] 6:03 AM [facility] REPOSITORY TYPE CODE TESTS RESULT [...] - 3.5 Performed By: #### PRO #### [address] [address] BMP Collected: 07/09/2018 Status: F Source: [facility] 6:03 AM [facility] REPOSITORY TYPE CODE TESTS RESULT [...] Low Calcium Lvl 8.2 Performed By: #### BMP, GFR #### [address] [address] .GFR Collected: 07/09/2018 Status: F Source: [facility] 6:03 AM [facility] REPOSITORY TYPE CODE TESTS RESULT OUT OF REFERENCE UNITS RANGE LAB GFRAA(LOINC ml/min/1.73 ) sqm GFR 33 Jamaican Result Comment: GFR Population mean for , [...] meters Performed By: #### BMP, GFR #### [address] [address] CBC Collected: 07/08/2018 Status: F Source: [facility] 8:43 AM [facility] REPOSITORY Order Comment: ordered secondary to warfarin [...] Low MPV 7.3 Performed By: #### CBC, ADKATHRINE, ANEU #### [address] [address] .AUTO DIFF Collected: 07/08/2018 Status: F Source: [facility] 8:43 AM [facility] REPOSITORY TYPE CODE TESTS RESULT [...] Performed By: #### CBC, ADIFF, ANEU #### [place] [address] [place], [place] [address] .NEUABS Collected: 07/08/2018 Status: F Source: [facility] 8:43 AM [facility] REPOSITORY TYPE CODE TESTS RESULT OUT OF REFERENCE UNITS RANGE LAB ANEU(LOINC) 2.85-6.16 10 3/mcL High Neutrophil, 17.40 Absolute Performed By: #### CBC, ADIFF, ANEU #### [place] [address] [place], [place] [address] BMP Collected: 07/08/2018 Status: F Source: [facility] 6:38 AM [facility] REPOSITORY TYPE CODE TESTS RESULT [...] 8.3 Performed By: #### BMP, GFR #### [address] [address] .GFR Collected: 07/08/2018 Status: F Source: [facility] 6:38 AM [facility] REPOSITORY TYPE CODE TESTS RESULT OUT OF REFERENCE UNITS RANGE LAB GFRAA(LOINC ml/min/1.73 ) sqm GFR 30 Jamaican Result Comment: GFR Population mean for , [...] meters Performed By: #### BMP, GFR #### [place] [address] PRO Collected: 07/08/2018 Status: F Source: [facility] 6:38 AM [facility] REPOSITORY TYPE CODE TESTS RESULT [...] - 3.5 Performed By: #### PRO #### [address] [address] BMP Collected: 07/07/2018 Status: F Source: [facility] 5:09 AM [facility] REPOSITORY TYPE CODE TESTS RESULT [...] Low Calcium Lvl 7.8 Performed By: #### BMP, GFR #### [facility] [address] [place] [address] #### CBC, ADIFF, ANEU #### [address] [address] .GFR Collected: 07/07/2018 Status: F Source: [facility] 5:09 AM [facility] REPOSITORY TYPE CODE TESTS RESULT OUT OF REFERENCE UNITS RANGE LAB GFRAA(LOINC ml/min/1.73 ) sqm GFR 33 Jamaican Result Comment: GFR Population mean for , [...] meters Performed By: #### BMP, GFR #### [address] [address] #### CBC, ADIFF, ANEU #### [address] [address] CBC Collected: 07/07/2018 Status: F Source: [facility] 5:09 AM [facility] REPOSITORY TYPE CODE TESTS RESULT [...] 7.4-10.4 fL MPV 7.7 Performed By: #### BMP, GFR #### [address] [address] #### CBC, ADIFF, ANEU #### [address] [address] .AUTO DIFF Collected: 07/07/2018 Status: F Source: [facility] 5:09 AM [facility] REPOSITORY TYPE CODE TESTS RESULT [...] ) Basophil, 0.00 Absolute Performed By: #### BMP, GFR #### [place] [address] #### CBC, ADIFF, ANEU #### [place] [address]87 .NEUABS Collected: 07/07/2018 Status: F Source: [facility] 5:09 AM [facility] REPOSITORY TYPE CODE TESTS RESULT OUT OF REFERENCE UNITS RANGE LAB ANEU(LOINC) 2.85-6.16 10 3/mcL High Neutrophil, 9.70 Absolute Performed By: #### BMP, GFR #### [place] [address] #### CBC, ADIFF, ANEU #### [address] [address] PRO Collected: 07/07/2018 Status: F Source: [facility] 5:09 [facility] REPOSITORY TYPE CODE TESTS RESULT OUT [...] - 3.5 Performed By: #### PRO #### [address] [address] OCC (LAB) Collected: 07/06/2018 Status: F Source: [facility] 1:41 PM [facility] REPOSITORY TYPE CODE TESTS RESULT OUT OF REFERENCE UNITS RANGE LAB OCC(LOINC) Negative Occult Negative Blood Fecal Performed By: #### OCC #### [address] [address] CBC Collected: 07/06/2018 Status: F Source: [facility] 5:51 AM [facility] REPOSITORY TYPE CODE TESTS RESULT [...] 7.4-10.4 fL MPV 7.5 Performed By: #### CBC, ADIFF, ANEU #### [address] [address] #### BMP, GFR, ESR, CRP #### [address] [address] .AUTO DIFF Collected: 07/06/2018 Status: F Source: [facility] 5:51 AM [facility] REPOSITORY TYPE CODE TESTS RESULT [...] Performed By: #### CBC, ADIFF, ANEU #### [place] [address] [place], [place] [address] #### BMP, GFR, ESR, CRP #### [address] [address] .NEUABS Collected: 07/06/2018 Status: F Source: [facility] 5:51 AM [facility] REPOSITORY TYPE CODE TESTS RESULT OUT OF REFERENCE UNITS RANGE LAB ANEU(LOINC) 2.85-6.16 10 3/mcL Neutrophil, 6.10 Absolute Performed By: #### CBC, ADIFF, ANEU #### [address] [address] #### BMP, GFR, ESR, CRP #### [facility] [address] [place] [address] BMP Collected: 07/06/2018 Status: F Source: [facility] 5:51 AM [facility] REPOSITORY TYPE CODE TESTS RESULT [...] Low Calcium Lvl 7.7 Performed By: #### CBC, ADIFF, ANEU #### [address] [address] #### BMP, GFR, ESR, CRP #### [place] [address] .GFR Collected: 07/06/2018 Status: F Source: [facility] 5:51 AM [facility] REPOSITORY TYPE CODE TESTS RESULT OUT OF REFERENCE UNITS RANGE LAB GFRAA(LOINC ml/min/1.73 ) sqm GFR 33 Jamaican Result Comment: GFR Population mean for , [...] mL/min/1.73 square meters Performed By: #### CBC, ADIFF, ANEU #### [place] [address] [place], [place] [address] #### BMP, GFR, ESR, CRP #### [address] [address] ESR Collected: 07/06/2018 Status: F Source: [facility] 5:51 AM [facility] REPOSITORY TYPE CODE TESTS RESULT OUT OF REFERENCE UNITS RANGE LAB ESR(LOINC) 0-30 mm/hr Erythrocyte High Sed Rate 67 Performed By: #### CBC, ADIFF, ANEU #### [address] [address] #### BMP, GFR, ESR, CRP #### [address] [address] CRP Collected: 07/06/2018 Status: F Source: [facility] 5:51 AM [facility] REPOSITORY TYPE CODE TESTS RESULT OUT OF REFERENCE UNITS RANGE LAB CRP(LOINC) <=0.80 mg/dL High C-Reactive 12.40 Protein Performed By: #### CBC, ADIFF, ANEU #### [address] [address] #### BMP, GFR, ESR, CRP #### [place] [id number] PRO Collected: 07/06/2018 Status: F Source: [facility] 5:51 AM [facility] REPOSITORY TYPE CODE TESTS RESULT [...] - 3.5 Performed By: #### PRO #### [address] [address] PROGRESS Observed: 07/05/2018 Status: COMPLETED Source: [facility] 9:41 AM [facility] REPOSITORY HNO ID: [id number] Author: Marit[facility] Service: (none) Author Type: Registered Nurse Type: Progress Notes Filed: 07/05/2018 9:55 AM Note Text: PRIMARY CARE COORDINATION FOLLOW-UP NOTE Provider Action/FYI: Pt likely going to [facility] in [place] after hospitalization at [facility]. Patient identified by name and date of . YES Spoke to Carrie at [facility] Summary: Carrie is working directly with [facility] to transition pt to [facility] after her hospitalization. Concerns: We'll see how pt does when in rehab for longer period of time and hopefully she will be compliant with all their treatment plans. Flame Channeler plan for next outreach: Will follow up after D/C from [facility] Maritza Howe RN Ambulatory Bill Distributor Internal Medicine [facility] July 05, 2018 CBC Collected: 07/05/2018 Status: F Source: [facility] 5:05 AM [facility] REPOSITORY TYPE CODE TESTS RESULT [...] fL MPV 7.9 Performed By: #### CBC, ADIFF, ANEU #### [facility] [address] [place], [place] [address] #### MG, FES, GFR, CMP #### [address] [address] .AUTO DIFF Collected: 07/05/2018 Status: F Source: [facility] 5:05 AM [facility] REPOSITORY TYPE CODE TESTS RESULT [...] Performed By: #### CBC, ADIFF, ANEU #### [address] [address] #### MG, FES, GFR, CMP #### [place] [address] .NEUABS Collected: 07/05/2018 Status: F Source: [facility] 5:05 AM [facility] REPOSITORY TYPE CODE TESTS RESULT OUT OF REFERENCE UNITS RANGE LAB ANEU(LOINC) 2.85-6.16 10 3/mcL High Neutrophil, 9.60 Absolute Performed By: #### CBC, ADIFF, ANEU #### [address] [address] #### MG, FES, GFR, CMP #### [place] [address] MG Collected: 07/05/2018 Status: F Source: [facility] 5:05 [facility] REPOSITORY TYPE CODE TESTS RESULT OUT OF REFERENCE UNITS RANGE LAB MG(LOINC) 1.8-2.4 mg/dL Low Magnesium Lvl 1.6 Performed By: #### CBC, ADIFF, ANEU #### [address] [address] #### MG, FES, GFR, CMP #### [place] [address] FES Collected: 07/05/2018 Status: F Source: [facility] 5:05 AM [facility] REPOSITORY TYPE CODE TESTS RESULT OUT OF RANGE REFERENCE UNITS LAB FE(LOINC) 50-70 mcg/dL Low Iron 9 LAB IBC(LOINC) 250-450 mcg/dL Low TIBC 102 LAB FESAT(LOINC % ) Iron Sat 9 Performed By: #### CBC, ADIFF, ANEU #### [place] [address] [place], [place] [address] #### MG, FES, GFR, CMP #### [address] [address] .GFR Collected: 07/05/2018 Status: F Source: [facility] 5:05 AM [facility] REPOSITORY TYPE CODE TESTS RESULT OUT OF REFERENCE UNITS RANGE LAB GFRAA(LOINC ml/min/1.73 ) sqm GFR 28 Jamaican Result Comment: GFR Population mean for , [...] mL/min/1.73 square meters Performed By: #### CBC, ADIFF, ANEU #### [address] [address] #### MG, FES, GFR, CMP #### [address] [address] CMP Collected: 07/05/2018 Status: F Source: [facility] 5:05 AM [facility] REPOSITORY TYPE CODE TESTS [...] U/L ALT/SGPT 12 Performed By: #### CBC, ADIFF, ANEU #### [address] [address] #### MG, FES, GFR, CMP #### [address] [address] PRO Collected: 07/05/2018 Status: F Source: [facility] 5:05 AM [facility] REPOSITORY TYPE CODE TESTS RESULT [...] - 3.5 Performed By: #### PRO #### [address] [address] CBC Collected: 07/04/2018 Status: F Source: [facility] 3:25 PM [facility] REPOSITORY TYPE CODE TESTS RESULT [...] 7.4-10.4 fL MPV 7.6 Performed By: #### CBC, ADIFF, ANEU #### [address] [address] #### PBNP, BMP, GFR, LAC #### [address] [address] .AUTO DIFF Collected: 07/04/2018 Status: F Source: [facility] 3:25 PM [facility] REPOSITORY TYPE CODE TESTS RESULT [...] Performed By: #### CBC, ADIFF, ANEU #### [place] [address] #### PBNP, BMP, GFR, LAC #### [place] [address] .NEUABS Collected: 07/04/2018 Status: F Source: [facility] 3:25 [facility] REPOSITORY TYPE CODE TESTS RESULT OUT OF REFERENCE UNITS RANGE LAB ANEU(LOINC) 2.85-6.16 10 3/mcL High Neutrophil, 13.30 Absolute Performed By: #### CBC, ADIFF, ANEU #### [place] [id number] #### PBNP, BMP, GFR, LAC #### [place] [address] PBNP Collected: 07/04/2018 Status: F Source: [facility] 3:25 PM [facility] REPOSITORY TYPE CODE TESTS RESULT OUT OF REFERENCE UNITS RANGE LAB PBNP(LOINC) 0-450 pg/mL High N-Terminal [address] proBNP Result Comment: NT-proBNP results of less than 300 pg/mL effectively rules out acute congestive heart failure with 99% negative predictive value. Performed By: #### CBC, ADIFF, ANEU #### [address] [address] #### PBNP, BMP, GFR, LAC #### [address] [address] BMP Collected: 07/04/2018 Status: F Source: [facility] 3:25 PM [facility] REPOSITORY TYPE CODE TESTS RESULT [...] Low Calcium Lvl 7.7 Performed By: #### CBC, ADIFF, ANEU #### [address] [address] #### PBNP, BMP, GFR, LAC #### [place] [address] .GFR Collected: 07/04/2018 Status: F Source: [facility] 3:25 [facility] REPOSITORY TYPE CODE TESTS RESULT OUT OF REFERENCE UNITS RANGE LAB GFRAA(LOINC ml/min/1.73 ) sqm GFR 34 Jamaican Result Comment: GFR Population mean for , [...] mL/min/1.73 square meters Performed By: #### CBC, ADIFF, ANEU #### [address] [address] #### PBNP, BMP, GFR, LAC #### [address] [address] LAC Collected: 07/04/2018 Status: F Source: [facility] 3:25 PM [facility] REPOSITORY TYPE CODE TESTS RESULT OUT OF REFERENCE UNITS RANGE LAB LAC(LOINC) 0.4-2.0 mmol/L Lactic Acid 1.0 Lvl Performed By: #### CBC, ADIFF, ANEU #### [address] [address] #### PBNP, BMP, GFR, LAC #### [address] [address] PROGRESS Observed: 07/04/2018 Status: COMPLETED Source: [facility] 9:35 AM [facility] REPOSITORY HNO ID: [id number] Author: Maritza [facility] Service: (none) Author Type: Registered Nurse Type: Progress Notes Filed: 07/05/2018 9:55 AM Note Text: PRIMARY CARE COORDINATION FOLLOW-UP NOTE Provider Action/FYI: Working on Rehab placement for pt again. Patient identified by name and date of . YES Spoke to numerous people Summary: The pt was not able to go to [facility] this weekend and wound up going to [facility] last night 07/03, per Sheron, her [...] been clear that she will NOT consider residential placement. They have decided to keep her at least one night since she was unable to participate in PT/OT eval. Flame Channeler plan for next outreach: Will follow up with answer from [facility]. Signature Maritza Howe adjustment clerk Bill Distributor Internal Medicine [facility] July 04, 2018 Observed: 07/04/2018 Status: F Source: [facility] 5:26 AM [facility] REPOSITORY . MICRO [...] Locations *1: This test was performed at: [facility], [address] [place] [address], [address]- , [facility] Performed By: #### CWD #### [address] [address] PRO Collected: 07/04/2018 Status: F Source: [facility] 5:02 AM [facility] REPOSITORY TYPE CODE TESTS [...] - 3.5 Performed By: #### PRO #### [facility] [address] [place], [place] [address] CNPTOUTREA Observed: 07/04/2018 Status: COMPLETED Source: [facility] 12:00 AM [facility] REPOSITORY Patient Outreach (INTMWS) ROSA BELTRAN ([id number]) 1935 F Date Time Provider Department 07/04/18 [...] pt was not able to go to [facility] this weekend and wound up going to [facility] last night 07/03, per Sheron, her D-in-L. I then spoke with Beth, the SW, at and explained what we were trying to do. She appreciated the help and I clarified the path that led Rosa to this situation. Concerns: Once we have an answer from [facility], I will notify her. If they are UNABLE to take pt, Beth will continue the search for care. Pt has been clear that she will NOT consider residential placement. They have decided to keep her at least one night since she was unable to participate in PT/OT eval. Flame Channeler plan for next outreach: Will follow up with answer from [facility]. Signature Maritza Howe RN Ambulatory Bill Distributor Internal Medicine [facility] July 04, 2018 Maritza Tian RN 07/05/2018 9:55 AM Signed PRIMARY CARE COORDINATION FOLLOW-UP NOTE Provider Action/FYI: Pt likely going to [facility] in [place] after hospitalization at [facility]. Patient identified by name and date of . YES Spoke to Carrie at [facility] Summary: Carrie is working directly with [facility] to transition pt to [facility] after her hospitalization. Concerns: We'll see how pt does when in rehab for longer period of time and hopefully she will be compliant with all their treatment plans. Flame Channeler plan for next outreach: Will follow up after D/C from [facility] Maritza Howe RN Ambulatory Bill Distributor Internal Medicine [facility] July 05, 2018 Volodymyr Gilbert [facility] 07/26/2018 8:54 AM Signed Left message for SW at [facility] to call me back. Volodymyr Gilbert [employer] 10/04/2018 8:41 AM Signed No discharge plans [...] on 07/05/18 Observed: 07/03/2018 Status: F Source: [facility] 10:44 PM [facility] REPOSITORY . MICRO - Microbiology PROCEDURE: Blood [...] Locations *1: This test was performed at: [facility], [address] [place] [address], [facility]- , [facility] Performed By: #### CBL #### [place] [address] XR CHEST 1 VIEW Observed: 07/03/2018 Status: F Source: [facility] 10:42 PM [facility] REPOSITORY ORIGINAL XR CHEST 1 VIEW PORTABLE [...] PM CBC Collected: 07/03/2018 Status: F Source: [facility] 10:29 [facility] REPOSITORY TYPE CODE TESTS RESULT OUT [...] 7.4-10.4 fL MPV 7.6 Performed By: #### CBC, ADIFF, ANEU, PRO #### [address] [address] #### BMP, GFR, TROP, PBNP, LAC #### [address] [address] .AUTO DIFF Collected: 07/03/2018 Status: F Source: [facility] 10:29 [facility] REPOSITORY TYPE CODE TESTS RESULT OUT [...] 0.10 Absolute Performed By: #### CBC, ADIFF, ANEU, PRO #### [address] [address] #### BMP, GFR, TROP, PBNP, LAC #### [address] [address] .NEUABS Collected: 07/03/2018 Status: F Source: [facility] 10:29 [facility] REPOSITORY TYPE CODE TESTS RESULT OUT OF REFERENCE UNITS RANGE LAB ANEU(LOINC) 2.85-6.16 10 3/mcL High Neutrophil, 17.20 Absolute Performed By: #### CBC, ADIFF, ANEU, PRO #### [address] [address] #### BMP, GFR, TROP, PBNP, LAC #### [address] [address] BMP Collected: 07/03/2018 Status: F Source: [facility] 10:29 [facility] REPOSITORY TYPE CODE TESTS RESULT OUT [...] mg/dL Calcium Lvl 8.4 Performed By: #### CBC, ADIFF, ANEU, PRO #### [facility] [address] [place], [place] [address] #### BMP, GFR, TROP, PBNP, LAC #### [facility] [address] [place] [address] .GFR Collected: 07/03/2018 Status: F Source: [facility] 10:29 PM [facility] REPOSITORY TYPE CODE TESTS RESULT OUT OF REFERENCE UNITS RANGE LAB GFRAA(LOINC ml/min/1.73 ) sqm GFR 46 Jamaican Result Comment: GFR Population mean for , [...] mL/min/1.73 square meters Performed By: #### CBC, ADIFF, ANEU, PRO #### [place] [id number] #### BMP, GFR, TROP, PBNP, LAC #### [place] [address] TROP Collected: 07/03/2018 Status: F Source: [facility] 10:29 PM [facility] REPOSITORY TYPE CODE TESTS RESULT [...] ECG changes may help assess possibility of [place]. *Other non-acute coronary syndrome conditions such as CHF, myocarditis, pulmonary emboli, sepsis and cardiac surgery could result in myocardial damage and increased troponin levels. Performed By: #### CBC, ADIFF, ANEU, PRO #### [place] [address] #### BMP, GFR, TROP, PBNP, LAC #### [place] [address] PBNP Collected: 07/03/2018 Status: F Source: [facility] 10:29 [facility] REPOSITORY TYPE CODE TESTS RESULT OUT OF REFERENCE UNITS RANGE LAB PBNP(LOINC) 0-450 pg/mL High N-Terminal 3546 proBNP Result Comment: NT-proBNP results of less than 300 pg/mL effectively rules out acute congestive heart failure with 99% negative predictive value. Performed By: #### CBC, ADIFF, ANEU, PRO #### [place] [address] #### BMP, GFR, TROP, PBNP, LAC #### [place] [address] PRO Collected: 07/03/2018 Status: F Source: [facility] 10:29 PM [facility] REPOSITORY TYPE CODE TESTS RESULT [...] valves 2.5 - 3.5 Performed By: #### CBC, ADIFF, ANEU, PRO #### [address] [address] #### BMP, GFR, TROP, PBNP, LAC #### [address] [address] LAC Collected: 07/03/2018 Status: F Source: [facility] 10:29 PM [facility] REPOSITORY TYPE CODE TESTS RESULT OUT OF REFERENCE UNITS RANGE LAB LAC(LOINC) 0.4-2.0 mmol/L Lactic Acid 1.4 Lvl Performed By: #### CBC, ADIFF, ANEU, PRO #### [address] [address] #### BMP, GFR, TROP, PBNP, LAC #### [address] [address] UA Collected: 07/03/2018 Status: F Source: [facility] 10:29 PM [facility] REPOSITORY TYPE CODE TESTS RESULT [...] Negative Performed By: #### UA, UAMICAO #### [facility] [address] [place], [place] [address] .URINALYSIS MICROSCOPIC Collected: 07/03/2018 Status: F Source: [facility] () 10:29 PM [facility] REPOSITORY TYPE CODE TESTS RESULT OUT OF REFERENCE UNITS RANGE LAB WBCUA(LOIN None Seen /hpf C) UA WBC None Seen LAB RBCUA(LOIN None Seen /hpf C) UA RBC None Seen LAB EPIUA(LOIN None Seen /hpf C) UA Squam Epithelial None Seen Performed By: #### UA, UAMICAO #### [facility] [address] [place], [place] [address] Observed: 07/03/2018 Status: F Source: [facility] 10:29 PM [facility] REPOSITORY . MICRO - Microbiology PROCEDURE: Blood [...] Locations *1: This test was performed at: [facility], [address] [place] [address], [address] [place] [address] Performed By: #### CBL #### [place] [address] Observed: 07/03/2018 Status: F Source: [facility] 10:29 PM [facility] REPOSITORY . MICRO - Microbiology PROCEDURE: Urine [...] Locations *1: This test was performed at: [facility], [address] [place] [address], [address] , [facility] Performed By: #### CUR #### [address] [address] PROGRESS Observed: 06/30/2018 Status: COMPLETED Source: [facility] 5:21 PM [facility] [place] REPOSITORY HNO ID: [id number] Author: Maritza Howe Service: (none) Author Type: Registered Nurse Type: Progress Notes Filed: 07/04/2018 9:18 AM Note Text: PRIMARY CARE COORDINATION FOLLOW-UP NOTE Provider Action/FYI: Pt to go to [facility]. Patient identified by name and date [...] get wounds healed sufficiently. She prefers the [facility] in [place]. Sheron has spoke with Carrie and asked [...] in recliner, but legs not elevated enough. Flame Channeler plan for next outreach: Will follow up Tu (due to holiday). with the [facility]. Signature Maritza Howe adjustment clerk Bill Distributor Internal Medicine [facility] June 30, 2018 ANA Observed: 06/30/2018 Status: COMPLETED Source: [place] [place] 12:00 AM [facility] REPOSITORY Patient Outreach (INTMWS) ROSA BELTRAN ([id number]) 1935 F Date Time Provider Department 06/30/18 MARITZA RUSSELL During your visit today, we recorded the following information about you: Maritza Tian RN 07/04/2018 9:18 AM Signed PRIMARY CARE COORDINATION FOLLOW-UP NOTE Provider Action/FYI: Pt to go to [facility]. Patient identified by name and date [...] get wounds healed sufficiently. She prefers the [facility] in [place]. Sheron has spoke with Carrie and asked [...] in recliner, but legs not elevated enough. Flame Channeler plan for next outreach: Will follow up Tu (due to holiday). with the [facility]. Signature Maritza Howe RN Ambulatory Bill Distributor Internal Medicine [facility] June 30, 2018 Volodymyr Gilbert CMA 08/02/2018 8:51 AM Signed I called [facility] the past several weeks and was unable to get a hold of anyone, but Left message for SW to return call #[phone]. I got a hold of someone today and they said the SW if out of the office at this time, but they took my Name and direct number so they will give her the message and have her give me a call back. Volodymyr Gilbert [facility] 08/03/2018 2:50 PM Signed Left message with Eva [phone] (she will call me back) Volodymyr Gilbert [facility] 08/04/2018 11:05 AM Signed I called and spoke with KUMAR Velasquez at [facility] ([phone]) who states Rosa is doing well. This [...] health care set up) or look at tank terminal gauger care facilities. They may have a decision next week. Volodymyr Gilbert [facility] 08/09/2018 12:14 PM Signed I spoke with KUMAR Velasquez at [facility] who states she's been in contact with Helena at [facility] in [place] and Rosa will potentially be transferring to [facility] today. She will be there for rehab/therapy and wound care and will hopefully will be able to be discharged home at some point. Volodymyr Gilbert [facility] 08/16/2018 9:30 AM Signed I called and spoke with [facility] who states Rosa was transferred to their facility last week. Unable to reach SW, but they will give her the message and call with any discharge plans/updats. Volodymyr Gilbert CMA 08/24/2018 9:17 AM Signed No discharge plans in place at this time. Volodymyr Gilbert [facility] 08/30/2018 9:25 AM Signed Left message for SW to return call #[phone] Volodymyr Gilbert CMA 09/07/2018 10:02 AM Signed No discharge plans in place at this time. Volodymyr Gilbert CMA 09/13/2018 9:53 AM Signed Left message for SW to return my call for an update. Volodymyr Gilbert CMA 09/20/2018 8:59 AM Addendum Left message for to return call #[phone] Volodymyr Gilbert [facility] 09/27/2018 8:58 AM Signed Left message for to return call #[phone]. Patient still @ [facility]. Volodymyr Gilbert [facility] 10/11/2018 8:55 AM Signed I spoke with Kd @ [facility] and she states there's no discharge plans in place at this time. Volodymyr Gilbert [facility] 10/18/2018 8:34 AM Signed I spoke with Emilee at [facility] and she states there are no discharge plans at this time. Volodymyr Gilbert [facility] 10/25/2018 9:15 AM Signed Spoke with Emilee at [facility] and she states no discharge plans in place at this time. Volodymyr Gilbert [facility] 11/01/2018 9:32 AM Signed Spoke with Emilee at [facility]. States still no discharge plans at this time. Volodymyr Gilbert [facility] 11/08/2018 9:02 AM Signed Spoke with Emilee at [facility]. There's no discharge plans at this time, but they're having a care conference within the next 5 days to discuss if she'll be residing there residential. I will call back x 1 week for another update. Volodymyr Giblert [facility] 11/15/2018 9:51 AM Signed Rosa 11/10/18. Allergies As of Date: 06/30/2018 (No Known Allergies) Date Reviewed: 06/27/2018 Reviewed by: Belle Ignacio RN - Fully Assessed Reason for Visit: Transition Of Care [9234] Reason For Visit History Recorded Prescriptions as [...] Encounter Status:Closed by MARITZA HOWE on 07/04/18 CNPN Observed: 06/30/2018 Status: COMPLETED Source: [place] 12:00 AM [facility] REPOSITORY Telephone (INTMWS) ROSA BELTRAN ([id number]) 1935 F Date Time Provider Department 06/30/18 AURORA BOLAND During your visit today, we recorded the following information about you: Carrie Steiner RN 06/30/2018 1:14 PM Signed Nurse Marlen calling from [facility]. Patient had wound vac discontinued due to container being full every 3 hours and she now has a Optilock dressing that has to be drained twice a day and daughter works too many hours and is unable to do this and is needing SNF admission for her mother today if possible. VNS called to [facility] and [facility] and they are both full. They also have calls out to other LTC facilities in [facility] and are awaiting calls back for an open bed. This nurse forwarded to on-call doctor, Dr. Boland and to care navigator for review. Carrie BOLAND MD 06/30/2018 4:41 [...] [Other] looking for SNF [Other] Cmt: in [facility] for admission soon Reason For Visit [...] 07/04/18 PROGRESS Observed: 06/29/2018 Status: COMPLETED Source: [place] 5:01 PM [facility] REPOSITORY HNO ID: [id number] Author: Mani Newman Service: (none) Author Type: [...] here or thru HH. Mani Newman MD PROGRESS Observed: 06/28/2018 Status: COMPLETED Source: [place] [place] 3:30 PM [facility] [place] REPOSITORY HNO ID: [id number] Author: Maritza Tian [facility] Service: (none) Author Type: Registered Nurse Type: Progress Notes Filed: 06/30/2018 8:13 AM Note Text: PRIMARY CARE COORDINATION FOLLOW-UP NOTE Provider Action/FYI: Hgb decreased, cannot find a previous scope record. Current med list from on your desk to review. Patient identified by name and date of . YES Spoke to Reyes at Hyperbaric treatment at wound Center at [facility]. Summary: Pt is NOT scheduled for hyperbaric treatments, but rather mist therapy- it is comparable to hydrotherapy done in physical therapy. Apparently they had talked about a local hyperbaric therapy but small unit that she would lay down for and place her leg in. These therapies are not covered by transportation. She has [employer] as secondary insurance and they do not [...] Abs Lymph 1.00 - 4.00 k/uL 1.85 Bowman% % 7.4 Abs Bowman <0.87 k/uL 0.61 Eosin% % 2.4 Abs [...] 0.400 - 5.500 uU/mL 4.590 6.410 (H) Flame Channeler plan for next outreach: Will follow up Fri Signature Maritza Howe adjustment clerk Bill Distributor Internal Medicine [facility] June 28, 2018 PROGRESS Observed: 06/28/2018 Status: COMPLETED Source: [place] 11:55 AM [facility] [place] REPOSITORY HNO ID: [id number] Author: Mraitza Howe Service: (none) Author Type: Registered Nurse [...] <0.01 CNPTOUTREACH Observed: 06/28/2018 Status: COMPLETED Source: [place] 12:00 AM [facility] REPOSITORY Patient Outreach (INTMWS) ROSA BELTRAN ([id number]) 1935 F Date Time Provider Department 06/28/18 MARITZA RUSSELL During your visit today, we recorded the following information about you: Maritza iTan RN 06/30/2018 8:13 AM Signed PRIMARY CARE COORDINATION FOLLOW-UP NOTE Provider Action/FYI: Hgb decreased, cannot find a previous scope record. Current med list from on your desk to review. Patient identified by name and date of . YES Spoke to Reyes at Hyperbaric treatment at wound Center at [facility]. Summary: Pt is NOT scheduled for hyperbaric treatments, but rather mist therapy- it is comparable to hydrotherapy done in physical therapy. Apparently they had talked about a local hyperbaric therapy but small unit that she would lay down for and place her leg in. These therapies are not covered by transportation. She has [employer] as secondary insurance and they do not [...] Abs Lymph 1.00 - 4.00 k/uL 1.85 Bowman% % 7.4 Abs Bowman <0.87 k/uL 0.61 Eosin% % 2.4 Abs [...] 0.400 - 5.500 uU/mL 4.590 6.410 (H) Flame Channeler plan for next outreach: Will follow up Fri Signature Maritza Howe RN Ambulatory Bill Distributor Internal Medicine [facility] June 28, 2018 Mani Newman MD [...] 2 CBC + DIFF [SQCBCDIF] Order #: [id number] FUTURE IRON + TIBC [SQIRON] Order #: [id number] FUTURE BASIC METABOLIC PNL [SQBMP] Order #: [id number] FUTURE RETIC COUNT [SQRETIC] Order #: [id number] FUTURE VITAMIN B12 BLOOD [SQB12] Order #: [id number] FUTURE FOLATE SERUM [SQSERFOL] Order #: [id number] FUTURE Prescriptions as of 06/28/2018 Sig: MENTHOL [...] 06/30/18 PROGRESS Observed: 06/27/2018 Status: COMPLETED Source: [place] 8:10 PM [facility] REPOSITORY HNO ID: [id number] Author: Maritza Howe Service: (none) Author Type: [...] plan for visit and transportation. Maritza Howe adjustment clerk Bill Distributor Internal Medicine [facility] June 27, 2018 CBC Collected: 06/27/2018 Status: F Source: [place] 1:44 PM [facility] REPOSITORY TYPE CODE TESTS RESULT [...] By: #### CBC, PT, CMP, TSH #### [facility] [address] [place], [place] [address] #### KRYSTAL #### [facility] [address] [place] [address] [phone] PROTIME Collected: 06/27/2018 Status: F Source: [place] 1:44 PM [facility] [place] REPOSITORY TYPE CODE TESTS RESULT OUT OF RANGE REFERENCE UNITS LAB PSEC 9.7-13.0 sec High PT Sec 22.1 LAB INR 0.9-1.3 High PT INR 2.2 Result Comment: Vitamin K Antagonist (VKA) Therapeutic Range: INR 2 to 3 (Target INR of 2.5) Note: For patients treated with VKA drugs, such as warfarin, the [place] [employer]icians 2012 Guideline recommends [...] Chest 2012, 141:7S-47S Genevieve RA, et al. JACC 2017, 70: 252-289 Performed By: #### CBC, PT, CMP, TSH #### [facility] [address] [place], [place] [address] #### KRYSTAL #### [facility] [address] [place] [address] [phone] COMP METABOLIC PANEL Collected: 06/27/2018 Status: F Source: [place] 1:44 PM [facility] REPOSITORY TYPE CODE TESTS RESULT OUT OF REFERENCE UNITS RANGE LAB TP 6.3-8.0 g/dL Protein, Total 7.7 LAB ALB 3.9-4.9 g/dL Low Albumin 3.3 LAB CA 8.5-10.2 mg/dL Calcium, Total 8.8 LAB TBIL 0.2-1.3 mg/dL Bilirubin, Total 0.3 LAB ALKP 32-117 U/L Alkaline Phosphatase 69 LAB AST 13-35 U/L AST 28 LAB GLU 74-99 mg/dL Glucose 78 Result Comment: The [place] Diabetes Association (ADA) provides guidance for cutoff [...] Standards of Medical Care in Diabetes 2016, [place] [employer] Association. Diabetes Care. 2016.39(Suppl 1). LAB [...] By: #### CBC, PT, CMP, TSH #### [facility] [address] [place] [address] #### KRYSTAL #### [address] [address] [phone] TSH Collected: 06/27/2018 Status: F Source: [place] 1:44 PM [facility] REPOSITORY TYPE CODE TESTS RESULT OUT OF RANGE REFERENCE UNITS LAB TSH 0.400-5.500 uU/mL High TSH 6.410 Performed By: #### CBC, PT, CMP, TSH #### [facility] [address] [place] [address] #### KRYSTAL #### [address] [address] [phone] GABAPENTIN Collected: 06/27/2018 Status: F Source: [place] 1:44 PM [facility] REPOSITORY TYPE CODE TESTS RESULT OUT OF REFERENCE UNITS RANGE LAB KRYSTAL 2.0-20.0 ug/mL Gabapentin 6.8 Result Comment: (NOTE) INTERPRETIVE INFORMATION: Gabapentin Therapeutic Range: 2 - 20 ug/mL Toxic: Not well established Pharmacokinetics of gabapentin vary widely among patients, particularly those with compromised renal function. Adverse effects may include somnolence, dizziness, ataxia, and fatigue. Performed by [facility], [address] [place] [address] [id number] [email or web address], Christiano Hussein MD, Lab. Director Performed By: #### CBC, PT, CMP, TSH #### [facility] [address] [place] [address] #### KRYSTAL #### [address] [address] [phone] PROGRESS Observed: 06/27/2018 Status: COMPLETED Source: [place] 1:17 PM [facility] REPOSITORY HNO ID: [id number] Author: Mani Newman Service: (none) Author Type: [...] and Zyvox to cephalexin due to cost. tenant relations coordinator was here and trying to coordinate [...] Disease), Stage Iii (Hcc) Peripheral Vascular Disease ([facility]) Current Outpatient Prescriptions: ergocalciferol, vitamin D2, (VITAMIN [...] MD PROGRESS Observed: 06/27/2018 Status: COMPLETED Source: [place] 1:10 PM [facility] [place] REPOSITORY O ID: [id number] Author: Ty Beckman Service: (none) Author Type: Physician Type: Progress Notes Filed: 06/27/2018 1:36 PM Note Text: Ty Beckman DPM Department of Podiatry [address] [place] [address] Dept: [phone] Dept Nail Care SUBJECTIVE: Follow up office [...] DPM CNOV Observed: 06/27/2018 Status: COMPLETED Source: [place] 12:40 PM [facility] REPOSITORY Office Visit (PODIWS) ROSA BELTRAN ([id number]) 1935 F Date Time Provider Department 06/27/18 12:40 PM TY BECKMAN During your visit today, we recorded the following information about you: Ty Beckman DPM 06/27/2018 1:36 PM Signed Ty Beckman DPM Department of Podiatry [address] [facility] [address] Dept: [phone] Dept Nail Care SUBJECTIVE: Follow up office [...] 06/27/18 CNOV Observed: 06/27/2018 Status: COMPLETED Source: [place] 11:40 AM [facility] REPOSITORY Office Visit (INTMWS) ROSA BELTRAN ([id number]) 1935 F Date Time Provider Department 06/27/18 11:40 AM MANI NEWMAN INTMWS During your visit today, we recorded the following information about you: Temperature Pulse Respiration Blood pressure 97.4 degrees 68/minute 20/minute 116/54 Weight 97.1 kg Mani Newman MD 06/27/2018 1:34 PM Signed This note was created using NoteWriter. Subjective [place] Giselle Devin was here for follow up. She was admitted from the hospital to TCU for non healing venous stasis ulcer of the right leg. She was then transferred to TCU for ongoing wound care and rehabilitation. It was difficult to corroborate, but patient was switched from Cipro and Zyvox to cephalexin due to cost. tenant relations coordinator was here and trying to coordinate [...] Newman MD Referring Provider: BRODY SWEET CHI [[id number]] Allergies As of Date: 06/27/2018 (No Known [...] disease (HCC) [I73.9] Order(s):CBC [SQCBC] Order #: [id number] FUTURE COMP METABOLIC PANEL [SQCMP] Order #: [id number] FUTURE TSH BLD [SQTSH] Order #: [id number] FUTURE GABAPENTIN/NEURONTIN [SQGABA] Order #: [id number] FUTURE PROTHROMBIN TIME/PT [SQPT] Order #: [id number] FUTURE Prescriptions as of 06/27/2018 Sig: VITAMIN [...] More... CKD (chronic kidney disease), stage III ([facility]) [*INVALID FOR* Priority: D Hyperkalemia [E87.5] INVALID [...] 06/27/18 LOITOUTREACH Observed: 06/27/2018 Status: COMPLETED Source: [place] 12:00 AM [facility] REPOSITORY Patient Outreach (INTMWS) DEVINROSA L ([id number]) 1935 F Date Time Provider Department 06/27/18 [...] control. PCC Interventions: Get med list from S HH Arrange transportation and sooner appt with Hyperbaric Called VNS RN to make sure they see pt- she states now she is not averse Next Office Visit: 08/21/2018 Plan For Next Call: Later in week with plan for visit and transportation. Maritza Howe RN Ambulatory Bill Distributor Internal Medicine [facility] June 27, 2018 Maritza Tian RN [...] 06/28/18 PROGRESS Observed: 06/22/2018 Status: COMPLETED Source: [place] 10:52 AM [facility] REPOSITORY HNO ID: [id number] Author: Tiffanie ParksRn) ELENA Humphrey Service: (none) Author Type: Registered Nurse Type: Progress Notes Filed: 07/03/2018 8:57 PM Note Text: UNIVERSAL PROTOCOL / SAFETY CHECKLIST Procedure to be performed: Sharp debridement of bilateral lower leg wounds Sign in Communication: 1044 Time Out: Team Confirms the Correct Patient, Correct Procedure, Correct Site and Site Marking, Correct Position (if applicable), Prep and Dry Time (if applicable). Time: 1100 Affirmation of Time Out: Yes Sign Out Discussion: Procedure completed and the patient tolerated it well without complications. Tiffanie Humphrey RN PROGRESS Observed: 06/22/2018 Status: COMPLETED Source: [place] 10:00 AM [facility] REPOSITORY HNO ID: [id number] Author: Luis Simons Service: (none) Author Type: Nurse Practitioner Type: Progress Notes Filed: 09/13/2018 12:41 PM Note Text: DATE OF VISIT: 06/22/2018 REASON FOR VISIT: Non-healing lower extremity wound. HISTORY OF PRESENT ILLNESS: Rosa Beltran is a 81 year old female who presents to the [facility] for further [...] followed by Dr. Jaskaran Chance at the [facility]. It was felt that her home support system was inadequate and that she may not have the resources in her home environment to appropriately care for her needs. In this regard, a social work lecturer consultation had been recommended on several occassions, but patient apparently insisted on remaining in her home environment despite that there was thought that is may be less than optimal. The patient is here at the [facility] for a second opinion regarding management of the abovementioned bilateral lower extremity wounds. She offers no other complaints. She denies any fevers, chills, wound-related pain or other related symptoms. INTERVAL HISTORY: 05/19/18 Patient presents for a routine follow- up. She was recently admitted to [facility] in 03/2018 with right leg wound infection. [...] with hypoxia (HCC) 09/30/2017 - Atrial fibrillation ([facility]) - CAD (coronary artery disease) Dr. Brenda [...] 10/08/2016 - COPD (chronic obstructive pulmonary disease) ([facility]) - Depressive disorder 12/29/2016 - Disruption of surgical wound 09/2015 Right tibia - Dorsalgia 12/29/2016 - Dyslipidemia - Gastric bypass status for obesity 12/29/2016 - Gastroesophageal reflux disease without esophagitis 10/08/2016 - HTN (hypertension) - Muscular weakness 12/29/2016 - Primary osteoarthritis involving multiple joints 12/29/2016 - Pure hypercholesterolemia - Rheumatoid arthritis ([facility]) 2007 - Sleep apnea - Stented coronary artery 12/29/2016 PAST SURGICAL HISTORY Procedure Laterality Date - CC CORONARY STENT 11/20/2012 KIMMY LAD - CC CORONARY STENT 12/20/2014 KIMMY, Cfx - SECTION [facility] cecal ulcer - GASTRIC BYPASS HX 1986 - HERNIA REPAIR HX 1987; 1989 - PAST SURGICAL HISTORY OF Right 09/2015 right tibia fracture ORIF - PAST SURGICAL HISTORY OF Right 01/20/2016 Removal of hardware, right tibia - TOTAL KNEE REPLACEMENT Right 2003 [facility] Gen. - TOTAL KNEE REPLACEMENT Left 2004 [facility] Gen. MEDICATIONS ergocalciferol, vitamin D2, [...] Rubor of Dependency: Negative (Y) Positive (N) [place] Examination: Comments: +3 edema BLEs Measurements: Right Calf: 60 cm Right Ankle: 34.5 cm Left Calf: 54 cm Left Ankle: 37 cm Neuro: Alert AND oriented x3, PROCESS IMPROVEMENT ANALYST II-XII grossly intact, reflexes 2+ and symmetric, [...] No acute fracture or bony destruction. ? Automatic Grinder Operator: PSCB ? Transcribe Date/Time: Oct 14 2017 [...] No acute fracture or bony destruction. ? Automatic Grinder Operator: PSCB ? Transcribe Date/Time: Oct 14 2017 [...] vasospasm, small vessel disease of the foot. Automatic Grinder Operator: PSCVerónica ? Transcribe Date/Time: Mar 21 2018 ?4:03P [...] and Edge attached to base Periwound Tissue: [place], dry and intact, No fluctuance, induration or [...] and Edge attached to base Periwound Tissue: [place], dry and intact, No fluctuance, induration or [...] -- Week 5 Wound Bed (Post-debridement): 100% [place] % of Healthy tissue: Undermining: No Tunneling: No Tendon/bone exposed: NO Wound Edge/Margins: Well-defined wound edges and Edge attached to base Periwound Tissue: [place], dry and intact, No fluctuance, induration or [...] any pressure areas including wound opening Negative [id number] mmhg Continuous pressure x 48 hours then, [...] the ED by our RN. Luis Simons APRN.LOI Charge Capture: [id number]; [id number] ([id number]) CNOV Observed: 06/22/2018 Status: COMPLETED Source: [place] 10:00 AM CLINIC [facility] CAMPUS REPOSITORY Office Visit (PLWDMR) ROSA BELTRAN ([id number]) 1935 F Date Time Provider Department 06/22/18 10:00 AM LUIS SIMONS, (TESTING COORDINATOR) PLWDMR During your visit today, we recorded the following information about you: Temperature Pulse Respiration Blood pressure 98.8 degrees 75/minute 20/minute 134/68 Luis Simons APRN.LOI 09/13/2018 12:41 PM Addendum DATE OF VISIT: 06/22/2018 REASON FOR VISIT: Non-healing lower extremity wound. HISTORY OF PRESENT ILLNESS: Rosa Beltran is a 81 year old female who presents to the [facility] for further [...] followed by Dr. Jaskaran Chance at the [facility] [facility]. It was felt that her home support system was inadequate and that she may not have the resources in her home environment to appropriately care for her needs. In this regard, a social work lecturer consultation had been recommended on several occassions, but patient apparently insisted on remaining in her home environment despite that there was thought that is may be less than optimal. The patient is here at the [facility] for a second opinion regarding management of the abovementioned bilateral lower extremity wounds. She offers no other complaints. She denies any fevers, chills, wound-related pain or other related symptoms. INTERVAL HISTORY: 05/19/18 Patient presents for a routine follow- up. She was recently admitted to [facility] in 03/2018 with right leg wound infection. [...] 10/08/2016 - COPD (chronic obstructive pulmonary disease) ([facility]) - Depressive disorder 12/29/2016 - Disruption of surgical wound 09/2015 Right tibia - Dorsalgia 12/29/2016 - Dyslipidemia - Gastric bypass status for obesity 12/29/2016 - Gastroesophageal reflux disease without esophagitis 10/08/2016 - HTN (hypertension) - Muscular weakness 12/29/2016 - Primary osteoarthritis involving multiple joints 12/29/2016 - Pure hypercholesterolemia - Rheumatoid arthritis ([facility]) 2007 - Sleep apnea - Stented coronary artery 12/29/2016 PAST SURGICAL HISTORY Procedure Laterality Date - CC CORONARY STENT 11/20/2012 KIMMY LAD - CC CORONARY STENT 12/20/2014 KIMMY, Cfx - SECTION [facility] - GASTRIC BYPASS HX 1986 - HERNIA REPAIR HX 1987; 1989 - PAST SURGICAL HISTORY OF Right 09/2015 right tibia fracture ORIF - PAST SURGICAL HISTORY OF Right 01/20/2016 Removal of hardware, right tibia - TOTAL KNEE REPLACEMENT Right 2003 [facility] Gen. - TOTAL KNEE REPLACEMENT Left 2004 [facility] Gen. MEDICATIONS ergocalciferol, vitamin D2, [...] Rubor of Dependency: Negative (Y) Positive (N) [place] Examination: Comments: +3 edema BLEs Measurements: Right Calf: 60 cm Right Ankle: 34.5 cm Left Calf: 54 cm Left Ankle: 37 cm Neuro: Alert AND oriented x3, PROCESS IMPROVEMENT ANALYST II-XII grossly intact, reflexes 2+ and symmetric, [...] No acute fracture or bony destruction. ? Automatic Grinder Operator: DWIGHT ? Transcribe Date/Time: Oct 14 2017 [...] No acute fracture or bony destruction. ? Automatic Grinder Operator: DWIGHT ? Transcribe Date/Time: Oct 14 2017 [...] vasospasm, small vessel disease of the foot. Automatic Grinder Operator: DWIGHT ? Transcribe Date/Time: Mar 21 2018 [...] and Edge attached to base Periwound Tissue: [place], dry and intact, No fluctuance, induration or [...] and Edge attached to base Periwound Tissue: [place], dry and intact, No fluctuance, induration or [...] -- Week 5 Wound Bed (Post-debridement): 100% [place] % of Healthy tissue: Undermining: No Tunneling: No Tendon/bone exposed: NO Wound Edge/Margins: Well-defined wound edges and Edge attached to base Periwound Tissue: [place], dry and intact, No fluctuance, induration or [...] any pressure areas including wound opening Negative [id number] mmhg Continuous pressure x 48 hours then, [...] the ED by our RN. Luis Simons APRN.LOI Charge Capture: [id number]; [id number] ([id number]) Luis Simons APRN.LOI 09/13/2018 12:46 PM [...] dressings were applied. Tiffanie Humphrey RN, RN 06/22/2018 11:44 AM Signed Nursing [...] intent to comply. Tiffanie Humphrey, RN, RN 06/22/2018 11:11 AM Addendum WOUND [...] any pressure areas including wound opening Negative [id number] mmhg Continuous pressure x 48 hours then, [...] following changes to the Wound Center at [phone] or go to the Emergency Department: ? [...] before your scheduled visit Continue antibiotics Luis Simons, LOI/mjl Tiffanie Humphrey RN, RN 07/03/2018 8:57 PM Signed UNIVERSAL PROTOCOL / SAFETY CHECKLIST Procedure to be performed: Sharp debridement of bilateral lower leg wounds Sign in Communication: [id number] Time Out: Team Confirms the Correct Patient, [...] any pressure areas including wound opening Negative [id number] mmhg Continuous pressure x 48 hours then, [...] following changes to the Wound Center at [phone] or go to the Emergency Department: ? [...] 07/03/18 PROCEDURE Observed: 06/22/2018 Status: COMPLETED Source: [place] TOP 10:00 AM [facility] REPOSITORY HNO ID: [id number] Author: Luis Simons Service: (none) Author Type: Nurse Practitioner Type: Procedures Filed: 09/13/2018 11:03 AM Note Text: (No note.) PROCEDURE Observed: 06/22/2018 Status: COMPLETED Source: ROUND TOP 10:00 AM [facility] REPOSITORY HNO ID: [id number] Author: Luis Simons Service: (none) Author Type: [...] applied. PROGRESS Observed: 06/21/2018 Status: COMPLETED Source: [place] TOP 12:22 PM [facility] REPOSITORY HNO ID: [id number] Author: Volodymyr Gilbert Cma Service: (none) Author Type: (none) Type: Progress Notes Filed: 06/21/2018 12:24 PM Note Text: See discharge note. [place] discharged 07/21/18 from TCU. PROGRESS Observed: 06/21/2018 Status: COMPLETED Source: [place] 12:18 PM [facility] REPOSITORY HNO ID: [id number] Author: Volodymyr Gilbert Cma Service: (none) Author Type: (none) Type: Progress Notes Filed: 06/30/2018 8:14 AM Note Text: TRANSITION CARE MANAGEMENT (TCM) DISCHARGE FROM POST ACUTE FACILITY POST ACUTE TRANSFER SUMMARY: - Spoke to: Esperanza HEATH (Jessica - KUMAR who I'd been in contact with for Onas care was out of the office) - Pt discharged Home on 06/20/2018. - Records requested (discharge summary from SNF: discharge medication list discharge instructionslabs and imaging). Rosa was discharged yesterday from TCU yesterday. They've set up home PT, OT, and a visiting nurse for her. PROGRESS Observed: 06/21/2018 Status: COMPLETED Source: ROUND TOP 9:12 AM [facility] REPOSITORY HNO ID: [id number] Author: Volodymyr Gilbert Cma Service: (none) Author Type: (none) Type: Progress Notes Filed: 06/21/2018 9:13 AM Note Text: Spoke with KUMAR Paul (jessica is out today) who states she'll check on her status and get back to me. PEYMANMARYAM Observed: 06/21/2018 Status: COMPLETED Source: MARTIN 12:00 AM [facility] REPOSITORY Patient Outreach (INTMWS) ROSA BELTRAN ([id number]) 1935 F Date Time Provider Department 06/21/18 MARITZA HOWE (RN) INTMWS During your visit today, we recorded the following information about you: Volodymyr Gilbert Doors Prefitter 06/30/2018 8:14 AM Signed TRANSITION CARE MANAGEMENT (TCM) DISCHARGE FROM POST ACUTE FACILITY POST ACUTE TRANSFER SUMMARY: - Spoke to: Esperanza HEATH ([facility] KUMAR who I'd been in contact with for [...] Allergies) Date Reviewed: 05/24/2018 Reviewed by: Anel (Elena) ELENA Briscoe - Fully Assessed Reason for [...] TIME W/INR Collected: 06/19/2018 Status: F Source: [facility] 5:20 AM [facility] REPOSITORY TYPE CODE TESTS RESULT OUT OF RANGE REFERENCE UNITS LAB L300.4150 11.7-14.9 SECONDS High PROTIME 25.7 LAB L300.4200 Normal INR 2.3 Performed By: #### L300.3900 #### [facility] [address] [place], [place], [address] CBC W/DIFF, AUTOMATED Collected: 06/16/2018 Status: F Source: [facility] 5:10 AM [facility] REPOSITORY TYPE CODE TESTS RESULT OUT OF [...] Lymph 1.48 Performed By: #### L100.0100 #### [facility] [address] [place], [place], [address] BASIC METABOLIC Collected: 06/16/2018 Status: F Source: [facility] PROFILE ([facility]) 5:10 AM [facility] REPOSITORY TYPE CODE TESTS RESULT OUT OF [...] GAP 4 Performed By: #### L500.2500 #### [facility] [address] [place], [address] PROTHROMBIN TIME W/INR Collected: 06/15/2018 Status: F Source: [facility] 5:20 AM [facility] REPOSITORY TYPE CODE TESTS RESULT OUT OF RANGE REFERENCE UNITS LAB L300.4150 11.7-14.9 SECONDS High PROTIME 32.8 LAB L300.4200 Normal INR 3.2 Performed By: #### L300.3900 #### [facility] [address] [place], [address] DISCHARGE SUMMARY Observed: 06/14/2018 Status: F Source: [facility] 7:48 PM [facility] REPOSITORY [facility] Medical Records Department [address] [place] [address] Discharge Summary 06/14/181945 MR#: [id number] Acct: [id number] Name: ROSA BELTRAN Rep #: [id number] : 1935 82 From: Brody Sweet MD PCP: Mani Newman MD Status: ADM IN Location: [place] [address] Discharge Date and Diagnosis Date of Admission: [...] Creat Clear Calc 31.49 Consultations 05/25/18 Consult: Onc/Wound/drop press hand Routine Comment: Reason for Consult:: RLE Stasis [...] PRN #30 tab PRN Reason: Severe Pain (6-08/09) Ondansetron [Zofran Odt] 4 mg PO Q8H [...] Status: F Source: [facility] NOTE 7:48 PM [facility] REPOSITORY [facility] Medical Records Department [address] [place] [address] Home Health Progress Note Mmlv-yg-Vgus Encounter Encounter Date: 06/14/181947 MR#: [id number] Acct: [id number] Name: ROSA BELTRAN Rep #: [id number] : 1935 82 From: Brody Sweet MD PCP: Mani Newman MD Status: ADM IN Location: [place] [address] Home Health Note - Plan Overview of reason of hospitalization: The patient is a 82 year old F emale with below past medical history hospitalized for non-healing right lower extremity venous stasis ulcer, admitted to [facility] with debility, here for rehabilitation, strengthening, wound [...] (Chronic) - Requirements and Reasons Disciplines Needed/Ordered: Care Home, Physical Therapy Reason for Disciplines: Disease Specific [...] DISCHARGE INSTRUCTION Observed: 06/14/2018 Status: F Source: [facility] 7:46 PM [facility] REPOSITORY [facility] Medical Records Department [address] [place] [address] Instructions for Home/Discharge Instructions 06/14/181942 MR#: [id number] Acct: [id number] Name: ROSA BELTRAN Rep #: [id number] : 1935 82 From: Brody Sweet MD [...] [Mycostatin Powder] 1 applic TOPICAL 0600,2200 bottle 08/15/18 Ondansetron [Zofran Odt] 4 mg PO Q8H [...] PRN #30 tab PRN Reason: Severe Pain (-08/09) Ondansetron [Zofran Odt] 4 mg PO Q8H [...] DNA BY Collected: 06/14/2018 Status: F Source: VAL[facility] PCR 1:30 PM [facility] REPOSITORY Order Comment: Specimen Source? RLE wound TYPE CODE TESTS RESULT OUT OF REFERENCE UNITS RANGE LAB L8200.1100 Negative High MRSA POSITIVE RESULT Result Comment: RESULTS CALLED TO [facility] 06/14/18 1526 Cruz Bray. REPORT READ BACK BY SAME . SENT TO [facility] 06-14-18 AT 1527PM LAB L8200.1150 Negative High SA RESULT POSITIVE Performed By: #### L8200.1075 #### [facility] [address] [place], [address] Observed: 06/14/2018 Status: F Source: [facility] CULTURE, WOUND 1:30 PM [facility] REPOSITORY Comments: RLE drainage Gram Stain Gram Stain No White Blood Cells Rare Gram negative rods Wound Culture #2 Stenotrophomonas maltophilia Additional sensitivity performed at [facility]. Antibiotic Result Ceftazidime R Chloramphenicol R Levofloxacin R Trimethoprim/Sulfa R Ticar/Clav = 64 ug/ml INTERMEDIATE R = Resistant I = Intermediate S = Susceptible [facility] ORIGINAL REPORT ON FILE IN LAB [...] >=320 R (NF) indicates non-formulary drug at [facility]. Approval by Infectious Disease Specialist required before non-formulary drugs may be ordered and/or dispensed. Stenotrophomonas maltophilia: REACTION Levofloxacin $ >=8 R Trimethoprim/Sulfametho $ >=320 R (NF) indicates non-formulary drug at [facility]. Approval by Infectious Disease Specialist required before non-formulary drugs may be ordered and/or dispensed. Performed By: #### M100.1400 #### [facility] [address] [place], [address] PROGRESS Observed: 06/14/2018 Status: COMPLETED Source: [place] 8:19 AM [facility] [place] REPOSITORY HNO ID: [id number] Author: Volodymyr Gilbert Cma Service: (none) Author Type: (none) Type: Progress Notes Filed: 06/14/2018 8:21 AM Note Text: Left message for KUMAR Lopez to return call #[phone] BASIC METABOLIC Collected: 06/13/2018 Status: F Source: [facility] PROFILE (BMP) 5:20 AM [facility] REPOSITORY TYPE CODE TESTS RESULT OUT OF [...] GAP 7 Performed By: #### L500.2500 #### [facility] [address] [place], [place], [address] PROTHROMBIN TIME W/INR Collected: 06/12/2018 Status: F Source: [facility] 5:15 AM [facility] REPOSITORY TYPE CODE TESTS RESULT OUT OF RANGE REFERENCE UNITS LAB L300.4150 11.7-14.9 SECONDS High PROTIME 31.2 LAB L300.4200 Normal INR 3.0 Performed By: #### L300.3900 #### [facility] [address] [place], [place], [address] BASIC METABOLIC Collected: 06/12/2018 Status: F Source: [facility] PROFILE (BMP) 5:15 AM [facility] REPOSITORY TYPE CODE TESTS RESULT OUT OF [...] GAP 9 Performed By: #### L500.2500 #### [facility] [address] [place], [address] BASIC METABOLIC Collected: 06/10/2018 Status: F Source: [facility] PROFILE (BMP) 7:38 AM [facility] REPOSITORY TYPE CODE TESTS RESULT OUT OF [...] GAP 9 Performed By: #### L500.2500 #### [facility] [address] [place], [address] PROTHROMBIN TIME W/INR Collected: 06/09/2018 Status: F Source: [facility] 8:45 AM [facility] REPOSITORY TYPE CODE TESTS RESULT OUT OF RANGE REFERENCE UNITS LAB L300.4150 11.7-14.9 SECONDS High PROTIME 33.5 LAB L300.4200 Normal INR 3.3 Performed By: #### L300.3900 #### [facility] [address] [place], [place], [address] CBC W/DIFF, AUTOMATED Collected: 06/09/2018 Status: F Source: [facility] 5:15 AM [facility] REPOSITORY TYPE CODE TESTS RESULT OUT OF [...] Lymph 0.89 Performed By: #### L100.0100 #### [facility] [address] [place], [address] BASIC METABOLIC Collected: 06/09/2018 Status: F Source: [facility] PROFILE (BMP) 5:15 AM [facility] REPOSITORY TYPE CODE TESTS RESULT OUT OF [...] GAP 8 Performed By: #### L500.2500 #### [facility] [address] [place], [place] [address], [address] BASIC METABOLIC Collected: 06/08/2018 Status: F Source: [facility] PROFILE ([facility]) 10:46 PM [facility] REPOSITORY TYPE CODE TESTS RESULT OUT OF [...] GAP 5 Performed By: #### L500.2500 #### [facility] [address] [place], [place], [address] CBC W/DIFF, AUTOMATED Collected: 06/08/2018 Status: F Source: [facility] 10:46 PM [facility] REPOSITORY TYPE CODE TESTS RESULT OUT OF [...] Lymph 2.03 Performed By: #### L100.0100 #### [facility] [address] [place], [place], [address] URINALYSIS, COMPLETE Collected: 06/08/2018 Status: F Source: [facility] 10:40 PM [facility] REPOSITORY Order Comment: How was Urine Obtained? [...] URINE SEEN Performed By: #### L400.0001 #### [facility] [address] [place], [address] Observed: 06/08/2018 Status: F Source: [facility] CULTURE, URINE 10:40 PM [facility] REPOSITORY Urine Culture Culture exhibits no growth. Performed By: #### M100.0650 #### [facility] [address] [place], [address] CHEST 1 VIEW Observed: 06/08/2018 Status: F Source: [facility] (PORTABLE) 10:08 PM [facility]OSPITAL REPOSITORY [facility] Imaging Services [address] [place] [place] [address] Chest 1 View (Portable) MR#: [id number] Acct: [id number] Name: ROSA BELTRAN Rep #: [id number] : 1935 F 82 From: Javier Serrano MD PCP: Mani Newman MD Status: ADM IN Study: Chest 1 View (Portable) Date of Exam: 06/08/18 Exam# [id number] Ordering Dr: Brody Sweet MD STUDY: X-RAY [...] CC: Brody Sweet MD; Mani Newman MD Automatic Grinder Operator: Signed ABDOMEN SINGLE VIEW Observed: 06/08/2018 Status: F Source: [facility] (PORTABLE) 10:08 PM [facility] REPOSITORY [facility] Imaging Services [address] [place] [address] Abdomen Single View (Portable) MR#: [id number] Acct: [id number] Name: ROSA BELTRAN Rep #: [id number] : 1935 F 82 From: Javier Serrano MD PCP: Mani Newman MD Status: ADM IN Study: Abdomen Single View (Portable) Date of Exam: 06/08/18 Exam# [id number] Ordering Dr: Brody Sweet MD ADDENDUM by Javier Serrano MD on 06/08/18 at 2313 RAD/Abdomen Single View (Portable) IMPRESSION: No bowel obstruction. Constipation. Electronically Signed: Javier Serrano, at 23:13 EDT Tel , Service support , 06/08/18 2320 Date cc: Brody Sweet MD; Mani Newman MD * Signed ADDENDUM by Javier Serrano MD on 06/08/18 at 2313 ADDENDUM Correction: The impression should read: 06/08/182312 Date cc: Brody Sweet MD; Mani Newman [...] CC: Brody Sweet MD; Mani Newman MD Automatic Grinder Operator: Signed PROTHROMBIN TIME W/INR Collected: 06/08/2018 Status: F Source: [facility] 5:10 AM [facility] REPOSITORY TYPE CODE TESTS RESULT OUT OF RANGE REFERENCE UNITS LAB L300.4150 11.7-14.9 SECONDS High PROTIME 30.9 LAB L300.4200 Normal INR 3.0 Performed By: #### L300.3900 #### [facility] [address] [facility] [place], [address] 12 LEAD ELECTROCARDIOGRAM Observed: 06/07/2018 Status: F Source: [facility] 11:22 AM [facility] REPOSITORY [facility] Cardiovascular Services [address] [place] [address] 12 Lead EKG 06/04/181913 MR#: [id number] Acct: [id number] Name: ROSA BELTRAN Rep #: [id number] : 1935 82 From: Maicol Hawk MD [...] ,cannot be excluded Abnormal ECG Confirmed by MAICOL HAWK MD ([id number]), assignment desk editor LAURA BUENROSTRO ([id number]) on 06/07/2018 11:22:05 AM Referred By: KEE Confirmed By:MAICOL HAWK MD 06/07/18 1122 Date Maicol Hawk MD CC: Jay Nicholas MD; Mani Newman MD Signed 12 LEAD ELECTROCARDIOGRAM Observed: 06/07/2018 Status: F Source: [facility] 10:08 AM [facility] REPOSITORY [facility] Cardiovascular Services [address] [place] [address] 12 Lead EKG 06/05/18 1307 MR#: [id number] Acct: [id number] Name: ROSA BELTRAN Rep #: [id number] : 1935 82 From: Maicol Hawk MD Attending Dr: Kee RUIZ,Brody Santiago Status: ADM IN Ordering Dr: Brody Sweet MD Date: 06/04/18 Location: TCU Sex: F N Admitted: 05/25/18 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 Rate : 068 BPM Atrial Rate : 059 BPM P-R Int : 000 ms QRS Dur : 098 ms QT Int : 362 ms P-R-T Axes : 000 033 012 degrees QTc Int : 384 ms Atrial fibrillation Low voltage QRS (LIMB LEADS) Abnormal ECG Confirmed by MAICOL HAWK MD ([id number]), assignment desk editor LAURA BUENROSTRO ([id number]) on 06/07/2018 10:08:05 AM Referred By: CARMENCITA Confirmed By:MAICOL HAWK MD 06/07/18 1008 Date Maicol Hawk MD CC: Brody Sweet MD; Mani Newman MD Signed PROGRESS Observed: 06/07/2018 Status: COMPLETED Source: [facility] 10:06 AM [facility] REPOSITORY HNO ID: [id number] Author: Volodymyr Gilbert Edgard Service: (none) Author Type: (none) Type: Progress Notes Filed: 06/07/2018 10:06 AM Note Text: jessica returned my call and lmom. She states Rosa is still at SNF and no discharge planning in place as of yet. PROGRESS Observed: 06/07/2018 Status: COMPLETED Source: [facility] 8:59 AM [facility] REPOSITORY HNO ID: [id number] Author: Voldoymyr Harman Rene Service: (none) Author Type: (none) Type: Progress Notes Filed: 06/07/2018 9:00 AM Note Text: Left message for SW to return call #[phone] EMERGENCY DEPARTMENT Observed: 06/05/2018 Status: F Source: [facility] SUMMARY 3:47 PM [facility] REPOSITORY [facility] Medical Records Department [address] [place] [address] Emergency Department Summary 06/05/18 1329 MR#: [id number] Acct: [id number] Name: ROSA BELTRAN Rep #: [id number] : 1935 82 From: Jay Nicholas MD [...] pain resolved This note was generated with [employer] dictation software. It may contain incorrect words, [...] your Primary Care Provider. Call [facility] ([phone]) or report to the closest Emergency Room. Call 911 if necessary. 06/05/181546 <Electronically signed by Jay Nicholas MD> Date Jay Nicholas MD Cosigner Signature (If Indicated): Date CC: Mani Newman MD DISCHARGE INSTRUCTION Observed: 06/05/2018 Status: F Source: [facility] 3:47 PM [facility] REPOSITORY [facility] Medical Records Department [address] [place] [place] [address] Discharge Instruction 06/05/181546 MR#: [id number] Acct: [id number] Name: ROSA BELTRAN Giselle Rep #: [id number] : 1935 82 From: Jay Nicholas MD [...] your Primary Care Provider. Call [facility] ([phone]) or report to the closest Emergency Room. Call 911 if necessary. 06/05/18 1547 <Electronically signed by Jay Nicholas MD> Date Jay Nicholas MD Cosigner Signature (If Indicated): Date CC: Mani Newman MD BLOOD GASES BY CPS Collected: 06/05/2018 Status: F Source: [facility] 2:03 PM [facility] REPOSITORY TYPE CODE TESTS RESULT OUT OF RANGE REFERENCE UNITS LAB L9000.9990 Normal BLD GAS TYPE ART LAB L9001.1000 L Normal SITE Brachial LAB L9001.1010 NA Normal ELIN TEST LAB L9001.1050 O2 Normal Delivery Dev Nasal Can LAB L9001.1055 /min Normal LPM 3.0 LAB L9001.1104 ED Normal Results To LAB L9001.1105 Normal Time Given 1355 LAB [...] SO2 ISTAT Performed By: #### L9000.0800 #### [facility] Point of Care [address] [place] [address] CHEST 1 VIEW Observed: 06/05/2018 Status: F Source: [facility] (PORTABLE) 1:25 PM [facility] REPOSITORY [facility] Imaging Services [address] [place] [address] Chest 1 View (Portable) MR#: [id number] Acct: [id number] Name: ROSA BELTRAN Rep #: [id number] : 1935 F 82 From: Chintan Trinidad MD PCP: Mani Newman MD Status: REG ER Study: Chest 1 View (Portable) Date of Exam: 06/05/18 Exam# [id number] Ordering Dr: Jay Nicholas MD STUDY: X-RAY [...] superimposed upon underlying COPD/emphysema. Electronically Signed: Chintan Trinidad, at 15:39 EDT Tel , Service support , CC: Jay Nicholas MD; Mani Newman MD Automatic Grinder Operator: Signed CBC W/DIFF, AUTOMATED Collected: 06/05/2018 Status: F Source: [facility] 1:00 PM [facility] REPOSITORY TYPE CODE TESTS RESULT OUT OF [...] Lymph 1.94 Performed By: #### L100.0100 #### [facility] [address] [place], [address] BASIC METABOLIC Collected: 06/05/2018 Status: F Source: [facility] PROFILE ([facility]) 1:00 PM [facility] REPOSITORY TYPE CODE TESTS RESULT OUT OF [...] 4 Performed By: #### L500.2500, L501.4010 #### [facility] [address] [facility] [place], [place], [address] TROPONIN-I Collected: 06/05/2018 Status: F Source: [facility] 1:00 PM [facility] REPOSITORY TYPE CODE TESTS RESULT OUT OF RANGE REFERENCE UNITS LAB L501.4010 <0.045 ng/mL Normal < 0.015 TROPONIN-I Result Comment: TROPONIN-I EXPECTED VALUES <0.045 Negative 0.045 - 0.590 Consistent with Cardiac Damage > OR = 0.600 Critical Value Not every elevated troponin is indicative of [place]. These values should be used with clinical judgement in examining the patient's clinical picture for diagnosis. To establish a diagnosis of [place] versus myocardial injury, there must be a demonstrated rise and/or fall in the troponin values, in addition to ischemic symptoms, EKG changes, new regional wall motion abnormality, and/or angiographical evidence. PLEASE NOTE: REFERENCE RANGES EDITED 18 Performed By: #### L500.2500, L501.4010 #### [facility] [address], [address] BEDSIDE GLUCOSE Collected: 06/05/2018 Status: F Source: VALE 12:48 PM [facility] REPOSITORY TYPE CODE TESTS RESULT OUT OF REFERENCE UNITS RANGE LAB L501.080 70-110 mg/dL High BEDSIDE GLU 116 Result Comment: MANAGEMENT OF PATIENT CARE PER NURSING PROTOCOL Performed By: #### L501.080 #### [facility] Point of Care [address] 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 Sweet History of Present Illness: The patient is a 82 year old F with chronic venous stasis transferred to TCU from [place] due to nonhealing RLE ulcer. Reports ulcer [...] 06/05/2018 Status: F Source: VALE 5:47 AM [facility] REPOSITORY TYPE CODE TESTS RESULT OUT OF RANGE REFERENCE UNITS LAB L300.4150 11.7-14.9 SECONDS High PROTIME 24.9 LAB L300.4200 Normal INR 2.2 Performed By: #### L300.3900 #### [facility] [address] [place], [address] BASIC METABOLIC Collected: 06/03/2018 Status: F Source: VALE PROFILE (BMP) 7:21 AM [facility] REPOSITORY TYPE CODE TESTS RESULT OUT OF [...] GAP 5 Performed By: #### L500.2500 #### [facility] [address] [place], [place], [address] CBC W/DIFF, AUTOMATED Collected: 06/02/2018 Status: F Source: [facility] 5:10 AM [facility] REPOSITORY TYPE CODE TESTS RESULT OUT OF [...] Lymph 1.66 Performed By: #### L100.0100 #### [facility] [address] [place], [place], [address] BASIC METABOLIC Collected: 06/02/2018 Status: F Source: VALE PROFILE (BMP) 5:10 AM [facility] REPOSITORY TYPE CODE TESTS RESULT OUT OF [...] GAP 6 Performed By: #### L500.2500 #### [facility] [address] [place], [address] URINALYSIS, COMPLETE Collected: 06/01/2018 Status: F Source: VALE 4:45 PM [facility] REPOSITORY Order Comment: Order Date: 06/01/18 How [...] Normal AMORPHOUS Performed By: #### L400.0001 #### [facility] [address] [place], [place], [address] Observed: 06/01/2018 Status: F Source: [facility] CULTURE, URINE 4:45 PM [facility] REPOSITORY Order Date: 06/01/18 Urine Culture ORGANISM 1: Proteus mirabilis [place] Count >100,000 Proteus mirabilis: REACTION Amoxacillin/Clavulanic Acid [...] >=320 R (NF) indicates non-formulary drug at [facility]. Approval by Infectious Disease Specialist required before non-formulary drugs may be ordered and/or dispensed. Performed By: #### M100.0650 #### [facility] [address] [place], [address] PROTHROMBIN TIME W/INR Collected: 06/01/2018 Status: F Source: VALE 5:05 AM [facility] REPOSITORY TYPE CODE TESTS RESULT OUT OF RANGE REFERENCE UNITS LAB L300.4150 11.7-14.9 SECONDS High PROTIME 20.9 LAB L300.4200 Normal INR 1.8 Performed By: #### L300.3900 #### [facility] [address] [place], [address] Observed: 05/31/2018 Status: F Source: [place]E CULTURE, DEEP WOUND 1:30 PM [facility] REPOSITORY Gram Stain Gram Stain 2+ Red [...] >=320 R (NF) indicates non-formulary drug at [facility]. Approval by Infectious Disease Specialist required before non-formulary drugs may be ordered and/or dispensed. Burkholderia cepacia: REACTION Ceftazidime *NF >=64 R Ceftriaxone $ >=64 R Ciprofloxacin $ <=0.25 S Gentamicin $ <=1 S Imipenem *NF 1 S Levofloxacin $ 2 S Piperacillin/Tazobactam $$ >=128 R Tobramycin $ <=1 S Trimethoprim/Sulfametho $ >=320 R (NF) indicates non-formulary drug at [facility]. Approval by Infectious Disease Specialist required [...] <=0.5 S (NF) indicates non-formulary drug at [facility]. Approval by Infectious Disease Specialist required before non-formulary drugs may be ordered and/or dispensed. * CLSI guidelines does not recommend testing of cephalosporins. This interpretation is deduced from Beta-lactam/penicillin results. Cult, Anaerobic No anaerobic bacteria isolated. Performed By: #### M100.1500 #### [facility] [address] [place], [place], [address] PROGRESS Observed: 05/31/2018 Status: COMPLETED Source: ROUND TOP 9:19 AM [facility] REPOSITORY O ID: [id number] Author: Volodymyr [facility] Service: (none) Author Type: (none) Type: Progress [...] place. PROGRESS Observed: 05/31/2018 Status: COMPLETED Source: ROUND TOP 9:04 AM [facility] REPOSITORY HNO ID: [id number] Author: [facility] Service: (none) Author Type: (none) Type: Progress Notes Filed: 05/31/2018 9:07 AM Note Text: Called and lmom for Jessica to return my call if she has any updates/discharge planning for Rosa. PROTHROMBIN TIME W/INR Collected: 05/29/2018 Status: F Source: VALE 5:20 AM [facility] REPOSITORY TYPE CODE TESTS RESULT OUT OF RANGE REFERENCE UNITS LAB L300.4150 11.7-14.9 SECONDS High PROTIME 20.7 LAB L300.4200 Normal INR 1.8 Performed By: #### L300.3900 #### [facility] [address] [place], [address] PROGRESS Observed: 05/26/2018 Status: COMPLETED Source: ROUND TOP 11:12 AM [facility] REPOSITORY HNO ID: [id number] Author: Volodymyr Gilbert [facility] Service: (none) Author Type: (none) Type: Progress Notes Filed: 05/26/2018 11:13 AM Note Text: Will call [facility] next week for patient update/discharge planning. PROGRESS Observed: 05/26/2018 Status: COMPLETED Source: ROUND TOP 10:49 AM [facility] REPOSITORY HNO ID: [id number] Author: Maritza Howe Service: (none) Author Type: Registered Nurse Type: Progress Notes Filed: 05/26/2018 11:13 AM Note Text: TRANSITION CARE MANAGEMENT (TCM) DISCHARGE TO POST ACUTE FACILITY POST ACUTE TRANSFER SUMMARY: -Pt discharged from F on 05/25/18. -Post Acute Facility Admitted to [facility] -Admitted for: Ulcer of ankle, right, with fat layer exposed (HCC) PROTHROMBIN TIME W/INR Collected: 05/26/2018 Status: F Source: VALE 5:05 AM [facility] REPOSITORY TYPE CODE TESTS RESULT OUT OF RANGE REFERENCE UNITS LAB L300.4150 11.7-14.9 SECONDS High PROTIME 19.9 LAB L300.4200 Normal INR 1.7 Performed By: #### L300.3900 #### [facility] [address] [place], [address] BASIC METABOLIC Collected: 05/26/2018 Status: F Source: VALE PROFILE (BMP) 5:05 AM [facility] REPOSITORY TYPE CODE TESTS RESULT OUT OF [...] GAP 5 Performed By: #### L500.2500 #### [facility] [address] [place], [address] CBC W/DIFF, AUTOMATED Collected: 05/26/2018 Status: F Source: [facility] 5:05 AM [facility] REPOSITORY TYPE CODE TESTS RESULT OUT OF [...] Lymph 0.99 Performed By: #### L100.0100 #### [facility] [address] [place], [address] [facility] Observed: 05/26/2018 Status: COMPLETED Source: SALAZ[facility] 12:00 AM [facility] REPOSITORY Patient Outreach (INTMWS) ROSA BELTRAN ([id number]) 1935 F Date Time Provider Department 05/26/18 MARITZA RUSSELL During your visit today, we recorded the following information about you: Maritza Tian RN 05/26/2018 11:13 AM Signed TRANSITION CARE MANAGEMENT (TCM) DISCHARGE TO POST ACUTE FACILITY POST ACUTE TRANSFER SUMMARY: -Pt discharged from F on 05/25/18. -Post Acute Facility Admitted to [facility] -Admitted for: Ulcer of ankle, right, with fat layer exposed (HCC) [facility] 05/26/2018 11:13 AM Signed Will call [facility] next week for patient update/discharge planning. [facility] 05/31/2018 9:07 AM Signed Called and lmom for Jessica to return my call if she has any updates/discharge planning for Rosa. [facility] 05/31/2018 9:20 AM Signed Jessica returned my call and states they're having a meeting for Rosa today. She doesn't anticipate she'll be in SNF for a long period of time. Estimates 1-2 weeks. I will call back next week for another update and to see if any discharge plans are put in place. [facility] 06/07/2018 9:00 AM Signed Left message for KUMAR to return call #[phone] Volodym[facility] 06/07/2018 10:06 AM Signed jessica returned my call and lmom. She states Rosa is still at SNF and no discharge planning in place as of yet. [facility] 06/14/2018 8:21 AM Signed Left message for KUMAR Lopez, to return call #[phone] Vol[facility] 06/21/2018 9:13 AM Signed Spoke with KUMAR Paul (jessica is out today) who states she'll check on her status and get back to me. [facility] 06/21/2018 12:24 PM Signed See discharge note. [place] discharged 07/21/18 from TCU. Allergies As of [...] AND PHYSICAL Observed: 05/25/2018 Status: F Source: [facility] EXAM 8:31 PM [facility] REPOSITORY [facility] Medical Records Department [address] [place] [address] History and Physical 05/25/182015 MR#: [id number] Acct: [id number] Name: Rosa Beltran Rep #: [id number] : 1935 82 From: Brody Sweet MD PCP: Mani Newman MD Status: ADM IN Y Location: [place] [address] Problem List (1) Venous stasis ulcer of [...] old Female with below past medical history, [facility] resident, admitted to [facility] 05/22/2018 with non-healing venous stasis ulcer of right lower extremity. 08/01/2017 Patient was admitted to [facility] with bilateral lower extremity cellulitis, treated with [...] ORIF. Psychiatric History: No pertinent psych hx LABEL STITCHER History: No pertinent LABEL STITCHER history Lives: Alone Smoking Status: Never smoker [...] Signed CNDS Observed: 05/25/2018 Status: COMPLETED Source: ROUND TOP 5:14 PM CLINIC OTHER CAMPUS REPOSITORY HNO ID: [id number] Author: Shola Flores Service: Hospital Medicine Author [...] (HCC) CKD (chronic kidney disease), stage III (HCC) Resolved Problems: Hypotension due to hypovolemia Hyperkalemia Sundowning OPERATIONS DURING HOSPITALIZATION: None PROCEDURES DURING HOSPITALIZATION: [...] PATIENT CONDITION AT DISCHARGE: Stable DISCHARGE DISPOSITION: Care Home Facility BP 148/74 Pulse 62 Temp 37 [...] 25, 2018 TIME: 6:51 PM PAGER/CONTACT #: [phone] CASE MANAGEM Observed: 05/25/2018 Status: COMPLETED Source: ROUND TOP 3:58 PM [facility] OTHER CAMPUS REPOSITORY [facility] ID: [id number] Author: Lisa ParksRn) ELENA Irvin Service: Case Management Author Type: Registered Nurse Type: Care Mgt Progress Note Filed: 05/25/2018 4:05 PM Note Text: CARE MANAGEMENT DISCHARGE NOTE SERVICE DATE: 05/25/2018 SERVICE TIME: 3:58 PM LOS: 3 days Admission Date: 05/22/2018 DISCHARGE ARRANGEMENT (list agency and phone number) [facility] facility: Was an expedited discharge program used? No Provider: [facility] SN[facility] CAREGIVER ASSESSMENT: Caregiver is ready, willing and able to meet the patient's needs as recommended by the inter-professional team? Yes Patient's transition needs and plan for meeting these needs: SNF Does the patient have an acute stroke diagnosis, or has the patient had a stroke during this admission? No HANDOFF COMMUNICATION: Bill Distributor: [facility] Primary [facility] Physician: Dr. Mani Newman CM discharge note routed to patients [facility] via [employer]. TRANSPORTATION ARRANGEMENTS: Mode of Transportation: Ambulette Transportation Agency and Phone #: [facility] ( [facility] ) [phone] / [phone]. Date of Trip: 05/25/18 Type of Service: Wheelchair Is Patient Medicaid Pending: No Discussion of financial coverage occurred with Patient . Loss Prevention Supervisor Location: [facility] Destination: [facility] Financial Care Management Responsibility: None Estimated Charge: NA Approving Belt Polisher: NA ADDITIONAL CONTACT RESOURCES: NA Needs Prior to Discharge: Accepting Facility IM letter given to Rosa Beltran on 05/15/18. Discharge order written for today. Patient stated she would need ambulette lemon picker for transport. Notified the patient of potential cost to her for ambulette transport. Patient verbalized understanding. [facility] ambulette tranpsort set up for 4:30 lemon picker. Notified RN, EMILY and patient of lemon picker time. Notified [facility] of patients discharge today with a 4:30 lemon picker time. Call placed to patients daughter in law Sheron per the patients request and notified her of the patients discharge today going to [facility] with a 4:30 lemon picker time. SIGNATURE: Lisa Irvin PATIENT NAME: Rosa Beltran DATE: May 25, 2018 TIME: 3:58 PM PAGER/CONTACT #: [phone] NM BONE 3 PHASE Observed: 05/25/2018 Status: F Source: ROUND TOP 3:20 PM CLINIC OTHER CAMPUS REPOSITORY * [...] of osteomyelitis in the appropriate clinical setting. Automatic Grinder Operator: DWIGHT Transcribe Date/Time: May 28 2018 6:36P Dictated by : LASHA PATRICIA MD This examination was interpreted and the report reviewed and electronically signed by: LASHA PATRICIA MD on May 28 2018 6:47PM EST [id number] CASE MANAGEM Observed: 05/25/2018 Status: COMPLETED Source: ROUND TOP 2:40 PM [facility] REPOSITORY HNO ID: [id number] Author: Lisa ParksRn) ELENA Irvin Service: Case Management Author Type: Registered Nurse Type: Care Mgt Progress Note Filed: 05/25/2018 2:40 PM Note Text: CARE MANAGEMENT PROGRESS NOTE SERVICE DATE: 05/25/2018 SERVICE TIME: 2:40 PM LOS: 3 days Took call from Xena Granda at [facility] SN[facility], she noted they are able to accept the patient. Spoke with the patient, she noted she will need ambulette transport to [facility] set up. CM department will continue to follow for DC needs. 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 Patient to use [facility] Bedside Delivery - NO prefer own pharmacy 2. If fax, patient would like us to fax prescriptions to Pharmacy of choice a. Pharmacy: b. Location: c. Phone: 3. Insurance card on file - N/A 4. Credit card for payment - N/A Patient wants to use local pharmacy. CASE MANAGEM Observed: 05/25/2018 Status: COMPLETED Source: ROUND TOP 11:47 AM [facility] REPOSITORY HNO ID: [id number] Author: Lisa (Rn) ELENA Irvin Service: Case Management Author Type: Registered Nurse Type: Care Mgt Progress Note Filed: 05/25/2018 12:31 PM Note Text: CARE MANAGEMENT PROGRESS NOTE SERVICE DATE: 05/25/2018 SERVICE TIME: 11:47 AM LOS: 3 days Needs Prior to Discharge: Accepting Facility Took call from Tia at [facility], she noted she spoke with the medical logistics specialist and they feel this patient needs a private room and they do not have a private room at this time. CM inquired if she can return to her current room and move to a private room when one is available. Tia noted the the medical logistics specialist said they are unable to take her back. Met with the patient and updated her on [facility] decision regarding not being able to take her back. SNF list provided to the patient, she noted she would like #1- [facility] SNF, #2- [facility] and #3- [facility]. Referral placed to [facility] and [facility]. CM department will continue to follow for DC needs. SIGNATURE: Lisa Irvin PATIENT NAME: Rosa Beltran DATE: May 25, 2018 TIME: 11:47 AM PAGER/CONTACT #: [phone] CONSULT PROG Observed: 05/25/2018 Status: COMPLETED Source: ROUND TOP 10:40 AM [facility] REPOSITORY HNO ID: [id number] Author: Heather Lynn Service: Infectious Disease Author [...] CASE MANAGEM Observed: 05/25/2018 Status: COMPLETED Source: ROUND TOP 10:27 AM [facility] OTHER CAMPUS REPOSITORY O ID: [id number] Author: Lisa (Rn) ELENA Irvin Service: Case Management Author Type: Registered Nurse Type: Care Mgt Progress Note Filed: 05/25/2018 10:29 AM Note Text: CARE MANAGEMENT PROGRESS NOTE SERVICE DATE: 05/25/2018 SERVICE TIME: 10:27 AM LOS: 3 days Needs Prior to Discharge: Accepting Facility Notified by Dr. Flores that the patient will be discharged today. Call placed to Tia at [facility], notified her that the patient is being discharged today and that I needed to confirm she is able to return to them. Tia is requesting updated notes sent over in [employer]. Updated notes sent. CM department will continue to follow for DC needs. SIGNATURE: Lisa Irvin PATIENT NAME: Rosa Beltran DATE: May 25, 2018 TIME: 10:27 AM PAGER/CONTACT #: [phone] CASE MANAGEM Observed: 05/25/2018 Status: COMPLETED Source: ROUND TOP 10:11 AM [facility] OTHER [place] REPOSITORY HNO ID: [id number] Author: Lisa Irvin RN Service: Case Management Author Type: Registered Nurse Type: Care Mgt Progress Note Filed: 05/25/2018 10:13 AM Note Text: CARE MANAGEMENT PROGRESS NOTE SERVICE DATE: 05/25/2018 SERVICE TIME: 10:11 AM LOS: 3 days Met with the patient and she noted she wants to notify [facility] that she wants to hold her bed. Dr. Wynn also in the room and he noted the patient may be ready for discharge today. [facility] the patient wishes to hold her bed and potential for discharge home today. CM department will continue to follow for DC needs. SIGNATURE: iLsa Irvin PATIENT NAME: Rosa Beltran DATE: May 25, 2018 TIME: 10:11 AM PAGER/CONTACT #: [phone] CONSULT PROG Observed: 05/25/2018 Status: COMPLETED Source: ROUND TOP 8:58 AM [facility] REPOSITORY HNO ID: [id number] Author: Kapil Lopez Service: Podiatry Author Type: [...] III (HCC) POA: Unknown Assessment AND Plan: Sundowning POA: Unknown Assessment AND Plan: Resolved Problems: [...] PAGER: CBC Collected: 05/25/2018 Status: F Source: ROUND TOP 6:00 AM CLINIC OTHER CAMPUS REPOSITORY TYPE CODE [...] By: #### CBC, PT, MG1, RFP #### [facility] [address] [place] [address] PROTIME Collected: 05/25/2018 Status: F Source: ROUND TOP 6:00 AM [facility] OTHER CAMPUS REPOSITORY TYPE CODE TESTS RESULT OUT OF RANGE REFERENCE UNITS LAB PSEC 9.7-13.0 sec High PT Sec 18.0 LAB INR 0.9-1.3 High PT INR 1.8 Result Comment: Vitamin K Antagonist (VKA) Therapeutic Range: INR 2 to 3 (Target INR of 2.5) Note: For patients treated with VKA drugs, such as warfarin, the [place] [employer] 2012 Guideline recommends [...] Chest 2012, 141:7S-47S Genevieve RA, et al. [facility] 2017, 70: 252-289 Performed By: #### CBC, PT, MG1, RFP #### [facility] [address] [place] [address] MAGNESIUM Collected: 05/25/2018 Status: F Source: ROUND TOP 6:00 [facility] OTHER [place] REPOSITORY TYPE CODE TESTS RESULT OUT OF REFERENCE UNITS RANGE LAB MG 1.7-2.3 mg/dL Magnesium 1.9 Performed By: #### CBC, PT, MG1, RFP #### [facility] [address] [place], [place] [id number] RENAL FUNCTION PANEL Collected: 05/25/2018 Status: F Source: ROUND TOP 6:00 AM [facility] OTHER CAMPUS REPOSITORY TYPE CODE TESTS RESULT OUT OF REFERENCE UNITS RANGE LAB ALB 3.9-4.9 g/dL Low Albumin 2.6 LAB CA 8.5-10.2 mg/dL Low Calcium, Total 8.1 LAB PHOS 2.7-4.8 mg/dL Phosphorus 3.2 LAB GLU 74-99 mg/dL Glucose 97 Result Comment: The [place] [employer] (ADA) provides guidance for cutoff [...] Standards of Medical Care in Diabetes 2016, [place] [employer]. Diabetes Care. 2016.39(Suppl 1). LAB [...] By: #### CBC, PT, MG1, RFP #### [facility] [address] [facility] [phone] CNCO Observed: 05/25/2018 Status: COMPLETED Source: ROUND TOP 12:00 AM CLINIC OTHER CAMPUS REPOSITORY Letter Text May 25, 2018 Rosa Beltran [address] [place] [id number] Dear Ms. Beltran, The nurses and staff of [facility] hope this letter finds you feeling well [...] free to contact me, Ayanna Corley RN ([phone]) or email me at, [email or web address] Additionally, you will receive a survey in [...] participation and thank you for choosing the [facility] for your health needs. Sincerely, Nurse Belt Polisher: Ayanna Corley RN ([phone]) [facility] Unit: [address] [place] [address] PROGRESS Observed: 05/24/2018 Status: COMPLETED Source: ROUND TOP 1:52 PM [facility] REPOSITORY HNO ID: [id number] Author: Jolynn Lowe (Pharmacist) Service: Pharmacy Author [...] care. Please contact pharmacy if questions. Herrera Michaud PLAN OF CARE Observed: 05/24/2018 Status: COMPLETED Source: ROUND TOP 1:45 PM [facility] REPOSITORY HNO ID: [id number] Author: Heather Lynn Service: Infectious Disease Author Type: Physician Type: Plan of Care Filed: 05/24/2018 1:45 PM Note Text: Consult Dictated. Please call with questions. Will follow with you. Thank you. Heather Lynn MD Pager: [phone] Date: 05/24/2018 Time: 1:45 PM PROGRESS Observed: 05/24/2018 Status: COMPLETED Source: ROUND TOP 11:17 AM [facility] REPOSITORY HNO ID: [id number] Author: Maki Yeager (Pharmacist) Service: Pharmacy Author [...] have any questions, please contact pharmacy at [phone]. Age: [age] year old Allergies: ALLERGIES No [...] CASE MANAGEM Observed: 05/24/2018 Status: COMPLETED Source: ROUND TOP 10:52 AM [facility] REPOSITORY HNO ID: [id number] Author: Anel (Rn) ELENA Schneider Service: Case Management Author Type: Registered Nurse Type: Care Mgt Progress Note Filed: 05/24/2018 10:54 AM Note Text: CARE MANAGEMENT PROGRESS NOTE SERVICE DATE: 05/24/2018 SERVICE TIME: 10:52 AM LOS: 2 days FREEDOM OF CHOICE GIVEN: Yes - CM met with patient at bedside to discuss dc planning. CM discussed speaking to Tia at [facility] and facility not placing bed hold to confirm patient can return to facility at [place]. CM sent updated notes to [facility] and notified facility of patient wanting to return at [place]. Patient confirmed she will need wheelchair transport at [place]. Needs Prior to Discharge: Accepting Facility;Bed Availability;Discharge Transportation SIGNATURE: Anel Schneider RN PATIENT NAME: Rosa Beltran DATE: May 24, 2018 TIME: 10:52 AM PAGER/CONTACT #: [phone] PROGRESS Observed: 05/24/2018 Status: COMPLETED Source: ROUND TOP 10:02 AM [facility] REPOSITORY HNO ID: [id number] Author: Shola Flores Service: Hospital Medicine Author Type: Physician Type: Progress Notes Filed: 05/24/2018 10:05 AM Note Text: HOSPITAL MEDICINE PROGRESS NOTE Name: Rosa Beltran SERVICE DATE: 05/23/2018 SERVICE TIME: 11:48 AM LOCATION / ROOM: [id number] Hospital Medicine/Primary Attending: Shola Flores MD NIGHT COVERAGE BETWEEN 5.30P-7.30A Page [phone] ASSESSMENT AND PLAN Active Hospital Problems Diagnosis [...] - CKD (chronic kidney disease), stage III ([facility]) Renal function stable. - Hypotension due to [...] tablet ORAL q 6 H PRN Shola Jimenezsam 1 tablet at 05/24/18 0904 warfarin 3 [...] iron (THERAGRAN-M) 1 tablet ORAL DAILY Justin (Saeed) Antolin 1 tablet at 05/24/18 0850 aspirin, enteric coated 81 mg tab(s) (ASPIRIN, ENTERIC COATED) 81 mg ORAL DAILY Justin (Saeed) Antolin 81 mg at 05/24/[address] 20 mg tab(s) (PROTONIX) 20 mg ORAL DAILY Justin (Saeed) Antolin 20 mg at 05/24/18 0643 levothyroxine 100 mcg tab(s) (SYNTHROID) 100 mcg ORAL DAILY Justin (Saeed) Antolin 100 mcg at 05/24/18 0643 silver sulfADIAZINE 1 % (SILVADENE,THERMAZENE) TOPICAL DAILY Justin (Saeed) Antolin 0.9% NaCl 3-5 mL 3-5 mL INTRAVENOUS q 12 H Justin (Saeed) Antolin 5 mL at 05/24/18 0842 ciprofloxacin 400 mg in D5W 200 mL (CIPRO) 400 mg INTRAVENOUS q 12 H Justin (Saeed) Antolin Last Rate: 200 mL/hr at 05/24/18 0842 400 mg at 05/24/18 0842 vancomycin dosing and monitoring per pharmacy OTHER As Directed Amauri Lund (Pharmacist) vancomycin 1.5 g in D5W 250 mL (VANCOCIN) 1.5 g INTRAVENOUS q 24 HR Justin (Saeed) Antolin Last Rate: 125 mL/hr at 05/23/18 2214 1.5 g at 05/23/18 2214 OBJECTIVE PHYSICAL EXAM: BP 81/58 Pulse 62 [...] AM PROTIME Collected: 05/24/2018 Status: F Source: ROUND TOP 6:03 AM [facility] OTHER CAMPUS REPOSITORY TYPE CODE TESTS RESULT OUT OF RANGE REFERENCE UNITS LAB PSEC 9.7-13.0 sec High PT Sec 20.5 LAB INR 0.9-1.3 High PT INR 2.0 Result Comment: Vitamin K Antagonist (VKA) Therapeutic Range: INR 2 to 3 (Target INR of 2.5) Note: For patients treated with VKA drugs, such as warfarin, the [place] [employer] 2012 Guideline recommends [...] Chest 2012, 141:7S-47S Genevieve ESTRADA et al. [facility] 2017, 70: 252-289 Performed By: #### PT, CBC #### [facility] [address] [place] [address] CBC Collected: 05/24/2018 Status: F Source: ROUND TOP 6:03 AM [facility] REPOSITORY TYPE CODE TESTS RESULT OUT [...] 10.1 Performed By: #### PT, CBC #### [facility] [address] [place] [address] BASIC METABOLIC PANL Collected: 05/24/2018 Status: F Source: ROUND TOP 6:03 AM [facility] OTHER [place] REPOSITORY TYPE CODE TESTS RESULT OUT OF REFERENCE UNITS RANGE LAB GLU 74-99 mg/dL Glucose 81 Result Comment: The [place] [employer] Association (ADA) provides guidance for cutoff [...] Standards of Medical Care in Diabetes 2016, [place] [employer]. Diabetes Care. 2016.39(Suppl 1). LAB [...] actual GFR. Performed By: #### BMP #### [place] [id number] #### HBA1C #### [place] [address] HEMOGLOBIN A1C Collected: 05/24/2018 Status: F Source: ROUND TOP 6:03 AM CLINIC OTHER CAMPUS REPOSITORY TYPE CODE TESTS RESULT OUT OF REFERENCE UNITS RANGE LAB HGBA1C 4.3-5.6 % Hemoglobin A1c 5.4 LAB HBA0 mg/dL Est. Average Glucose 108 Result Comment: eAG: (Estimated average glucose) is a calculated value from HgbA1c and is residential sales representative of the average blood glucose level in the last 2-3 month period. Performed By: #### BMP #### [facility] [address] [place], [place] [id number] #### HBA1C #### [place] [id number] [place] [address] NURSING PROG Observed: 05/24/2018 Status: COMPLETED Source: ROUND TOP 4:27 AM [facility] REPOSITORY HNO ID: [id number] Author: Kam ParksRn) ELENA Kaiser Service: Nursing Author Type: Registered Nurse Type: Nursing Progress Note Filed: 05/24/2018 4:29 AM Note Text: Nursing Progress Note Patient Name: Rosa Beltran Patient Location: [place] [id number] Daily Note: 0425: Reported BP of 96/[address] Blanton. Ordered to hold morning dose of Lasix. This note was completed by: Kam Kaiser RN CONSULT Observed: 05/24/2018 Status: COMPLETED Source: ROUND TOP 12:00 AM [facility] OTHER [place] REPOSITORY HNO ID: [id number] Author: Heather Lynn Service: Infectious Disease Author Type: Physician Type: Consults Filed: 05/25/2018 8:51 AM Note Text: [facility]- Consultation ROSA BELTRAN : 1935 AGE: 82 SEX: F ACCTNUM: [id number] [facility]: [facility]: [facility] ATTENDING PHYSICIAN: SHOLA FLORES DATE OF CONSULTATION: 05/24/2018 REFERRING PHYSICIAN: Shola Flores MD REASON FOR CONSULTATION: Right leg infection. HISTORY: The patient is an 82-year-old female, who was admitted to [facility] in 03/2018 with right leg wound infection. [...] the consult. Heather Lynn M.D. Infectious Disease [id number] /[id number] THERAPY NT Observed: 05/23/2018 Status: COMPLETED Source: ROUND TOP 4:06 PM CLINIC OTHER CAMPUS REPOSITORY HNO ID: [id number] Author: Anel ParksOt/LSantino Barney Service: Occupational Therapy Author Type: Occupational Therapist Type: Therapy (PT/OT/Speech/Resp) Filed: 05/23/2018 4:16 PM Note Text: Occupational Therapy Evaluation SERVICE DATE: 05/23/2018 SERVICE TIME: 1447 to 1531 (Co-treatment with PT due to RN report of amount of assistance required earlier this date) ROOM: [place] [address] Recommended Discharge Disposition: Subacute/SNF Recommended Discharge Disposition [...] of daily living (ADL) Interventions Provided: Evaluation;Self Fci Management (74224) $ Evaluation-Moderate (19121) Billed Units: 1 unit Self Fci Management (55449) Treatment Minutes: 15 1 unit Skilled Intervention(s): [...] G CODE: OT 6 Clicks Score: 15 (05/23/18 1447) Self Care Current Status (G8987): CK (05/23/18 1447) Self Care Goal Status (G8988): CK (05/23/18 1447) Based on clinical assessment and the score [...] With: Self/Alone (however, admitted from SNF per ) Assistance Available: multimedia 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 (dtr in law lives upstairs, works different shifts) Entry To Home: (stair lift) Number Of Stairs To Bed/Bath: 0 Tub/Shower Type: walk in Laundry: pt completes Equipment Owned: Grab Bars-Shower;Grab Bars-Toilet;Hospital Bed;Wheeled Walker;Wheelchair;Home Oxygen;Lift Chair Prior Functional Level: Required Assistance Assistance Required With: Shopping;Transportation Prior Functional Level Comments: Pt reports ind with ADLs, dtr in assists with meals as needed, uses walker [...] THERAPY NT Observed: 05/23/2018 Status: COMPLETED Source: ROUND TOP 4:00 PM CLINIC OTHER CAMPUS REPOSITORY HNO ID: [id number] Author: Alicja (Pt) Megan Service: Physical Therapy Author Type: Physical Therapist Type: Therapy (PT/OT/Speech/Resp) Filed: 05/23/2018 4:10 PM Note Text: Physical Therapy Evaluation SERVICE DATE: 05/23/2018 SERVICE TIME: 1430 to 1530 Co-eval with OT due to anticipated level of assist as nursing reporting assist x 2 to mobilize. 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 SIGNATURE: Alicja Guzman PT PATIENT NAME: Rosa Beltran DATE: May 23, 2018 TIME: 4:00 PM ALLIED HEALTH Observed: 05/23/2018 Status: COMPLETED Source: ROUND TOP 2:50 PM [facility] OTHER [place] REPOSITORY HNO ID: [id number] Author: Svetlana ParksRn) Carlos RN Service: Ostomy Author Type: Registered Nurse Type: Allied Health Filed: 05/23/2018 2:54 PM Note Text: Consult received for wound care. Podiatry service also consulted, has evaluated and written wound care orders. I will defer my consult. I will remain available if needs arise. Svetlana Gonzalez RN CWOCN PT ED Observed: 05/23/2018 Status: COMPLETED Source: ROUND TOP 2:36 PM [facility] OTHER [place] REPOSITORY HNO ID: [id number] Author: Danica Alejandro (Testing Coordinator) Service: Pharmacy Author Type: Pharmacist Type: Patient Education Filed: 05/23/2018 2:39 PM Note Text: PHARMACY WARFARIN EDUCATION Patient Name: Rosa Beltran Account #: Data Unavailable Admission Date: 05/22/2018 5:25 PM Date of Contact: May 23, 2018 Time of Contact: 2:37 PM Patient new to warfarin? No: Previous (home) dosage: 3mg daily Outpatient follow-up plan: Follow-up in [facility] or outside Anticoagulation Clinic Details:[facility] Indication for warfarin: atrial fibrillation Target [...] information Outcomes not met: N/A Outpatient Follow-up: [facility] DANICA ALEJANDRO, ENGINEERING TECHNICAL SPECIALIST PROGRESS Observed: 05/23/2018 Status: COMPLETED Source: ROUND TOP 11:48 AM CLINIC OTHER CAMPUS REPOSITORY HNO ID: [id number] Author: Shola Flores Service: Hospital Medicine Author Type: Physician Type: Progress Notes Filed: 05/23/2018 11:52 AM Note Text: HOSPITAL MEDICINE PROGRESS NOTE Name: Rosa Beltran SERVICE DATE: 05/23/2018 SERVICE TIME: 11:48 AM LOCATION / ROOM: [facility]0408/[id number] Hospital Medicine/Primary Attending: Shola Flores MD NIGHT COVERAGE BETWEEN 5.30P-7.30A Page [phone] ASSESSMENT AND PLAN Active Hospital Problems Diagnosis [...] irrigation 0.25% (DAKINS HALF-STRENGTH) IRRIGATION ONCE Kapil (Res) John HYDROcodone 5 mg - acetaminophen 325 [...] DAILY Justin Dangelo (Pa) 81 mg at 05/23/[address] 20 mg tab(s) (PROTONIX) 20 mg ORAL DAILY Justin Dangelo (Pa) 20 mg at 05/23/18 0528 levothyroxine 100 mcg tab(s) (SYNTHROID) 100 mcg ORAL DAILY Justin Dangelo (Pa) 100 mcg at 05/23/18 0528 silver sulfADIAZINE 1 % (SILVADENE,THERMAZENE) TOPICAL DAILY Justin Dangelo (Pa) 0.9% NaCl 3-5 mL 3-5 mL INTRAVENOUS q 12 H Justin Dangelo (Pa) 5 mL at 05/23/18 0940 ciprofloxacin 400 mg in D5W 200 mL (CIPRO) 400 mg INTRAVENOUS q 12 H Justin Dangelo (Pa) Last Rate: 200 mL/hr at 05/23/18 0941 400 mg at 05/23/18 0941 furosemide 40 mg injection (LASIX) 40 mg INTRAVENOUS q 12 H 6a/6p Justin Dangelo (Pa) 40 mg at 05/23/18 0528 vancomycin dosing [...] Patient is already anti-coagulated. Disposition: [facility] with [facility] or Extended Care Facility Plan of care discussed with: Patient, Daughter and RN. 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 No Advance Directive: Current Advance Directive: Health Care Power of Etcher [employer] Bo[employer] In Chart: (family to bring in copy) [...] Receive Any Community Services or Home Care? Care Home from SNF Equipment Prior to Admission: Oxygen 3 liters per minute Walker Wound Care supplies Has the Patient Been in a Care Home Facility in the Past 30 days? Yes. Where and Dates: current at [facility] SOCIAL: Living Arrangement: Nursing Facility [facility] (Level of Care: skilled Bed Hold Days: .) Lives With: N/A Patient From Facility Financial Resources: Retired Primary Contact: Extended Emergency Contact Information Primary Emergency Contact: Sheron Beltran Address: [place]KNOWN [place] [id number] [facility] Mobile Relation: Relative Supportive: Yes Other Important [...] 0 I feel financially burdened by my [id number] expenses for my prescription medication: Disagree mostly [...] CHOICE EXPLAINED: Yes wants to return to [facility], if HHC wants [facility]> POTENTIAL TRANSITION PLANS Home Care Care Home Facility/Intermediate Care Facility CM in to speak with patient at bedside, introduced self and role. Pt is a 82y/o with medical history of hypothyroidism, acute respiratory failure with hypoxia, A. fib, CAD, COPD, depression, hypertension, dyslipidemia, and rheumatoid arthritis presents from wound center worsening wound infection . Pt is from [facility] (Skilled) and per pt, plan is to return, if HHC needed wants [facility]. CM instructed pt that a CM will remain available for any d/c needs. Pt had no further questions/concerns voiced at this time. SIGNATURE: Meredith Burns RN PATIENT NAME: Rosa Beltran DATE: May 23, 2018 TIME: 11:43 AM PAGER/CONTACT #: [phone] CONSULT Observed: 05/23/2018 Status: COMPLETED Source: ROUND TOP 10:33 AM CLINIC OTHER CAMPUS REPOSITORY O ID: [id number] Author: Kapil Lopez Service: Podiatry Author Type: [...] ulcers. Patient was sent to ED from [facility]. Patient reports feeling N/F/V/C for the [...] hypothyroidism - Acute respiratory failure with hypoxia ([facility]) 09/30/2017 - Atrial fibrillation ([facility]) - CAD (coronary artery disease) Dr. Brenda [...] 10/08/2016 - COPD (chronic obstructive pulmonary disease) ([facility]) - Depressive disorder 12/29/2016 - Disruption of [...] - TOTAL KNEE REPLACEMENT Right 2003 [facility] Gen. - TOTAL KNEE REPLACEMENT Left 2004 [facility] Gen. FAMILY HISTORY: No family [...] 05/23/2018 Neut% 67.3 05/22/2018 Lymph% 22.4 05/22/2018 Bowman% 7.4 05/22/2018 Eosin% 2.4 05/22/2018 Baso% 0.5 05/22/2018 Abs Neut (ANC) 5.57 05/22/2018 Abs Bowman 0.61 05/22/2018 Abs Eosin 0.20 05/22/2018 Abs [...] AM PROGRESS Observed: 05/23/2018 Status: COMPLETED Source: ROUND TOP 8:54 AM [facility] OTHER CAMPUS REPOSITORY O ID: [id number] Author: Rayshawn Arzate (Pharmacist) Service: Pharmacy Author [...] have any questions, please contact pharmacy at [phone]. Age: [age] year old Allergies: ALLERGIES No [...] 6.09 Vancomycin Levels: No results found for: DANISHA Arzate, Pharmacist CBC Collected: 05/23/2018 Status: F Source: ROUND TOP 6:28 AM [facility] OTHER CAMPUS REPOSITORY TYPE CODE TESTS RESULT [...] Performed By: #### CBC, PT, CMP #### [facility] [address] [place] [address] PROTIME Collected: 05/23/2018 Status: F Source: ROUND TOP 6:28 AM [facility] REPOSITORY TYPE CODE TESTS RESULT OUT OF RANGE REFERENCE UNITS LAB PSEC 9.7-13.0 sec High PT Sec 20.1 LAB INR 0.9-1.3 High PT INR 2.0 Result Comment: Vitamin K Antagonist (VKA) Therapeutic Range: INR 2 to 3 (Target INR of 2.5) Note: For patients treated with VKA drugs, such as warfarin, the [place] [employer]icians 2012 Guideline recommends [...] Chest 2012, 141:7S-47S Genevieve RA, et al. [facility] 2017, 70: 252-289 Performed By: #### CBC, PT, CMP #### [facility] [address] [place] [address] COMP METABOLIC PANEL Collected: 05/23/2018 Status: F Source: ROUND TOP 6:28 [facility] REPOSITORY TYPE CODE TESTS RESULT OUT OF REFERENCE UNITS RANGE LAB TP 6.3-8.0 g/dL Protein, Total 8.0 LAB ALB 3.9-4.9 g/dL Low Albumin 3.1 LAB CA 8.5-10.2 mg/dL Calcium, Total 8.6 LAB TBIL 0.2-1.3 mg/dL Bilirubin, Total 0.7 LAB ALKP 32-117 U/L Alkaline Phosphatase 74 LAB AST 13-35 U/L AST 32 LAB GLU 74-99 mg/dL Glucose 92 Result Comment: The [place] [employer] (ADA) provides guidance for cutoff [...] Standards of Medical Care in Diabetes 2016, [place] [employer]. Diabetes Care. 2016.39(Suppl 1). LAB [...] Performed By: #### CBC, PT, CMP #### [facility] [address] [place] [address] PROGRESS Observed: 05/22/2018 Status: COMPLETED Source: ROUND TOP 10:22 PM CLINIC OTHER CAMPUS REPOSITORY [facility] ID: [id number] Author: Amauri Lund (Pharmacist) Service: Pharmacy Author [...] have any questions, please contact pharmacy at [phone]. Age: [age] year old Allergies: ALLERGIES No [...] Vancomycin Levels: No results found for: DANISHA Lund, Pharmacist HISTORY PHYSICAL Observed: 05/22/2018 Status: COMPLETED Source: ROUND TOP 8:31 PM CLINIC OTHER CAMPUS REPOSITORY HNO ID: [id number] Author: Sharlene Angel Service: General Internal Medicine Author Type: Physician Type: HANDP Filed: 05/22/2018 10:33 PM Note Text: HOSPITAL MEDICINE HISTORY AND PHYSICAL EXAM PATIENT NAME: Rosa Beltran SERVICE DATE: 05/22/2018 SERVICE TIME: 8:31 PM Primary Care Physician: Mani Newman MD NIGHT COVERAGE Page [phone] for any questions between 5.30p-7.30a ASSESSMENT AND [...] with hypoxia (HCC) 09/30/2017 - Atrial fibrillation ([facility]) - CAD (coronary artery disease) Dr. Brenda [...] 10/08/2016 - COPD (chronic obstructive pulmonary disease) ([facility]) - Depressive disorder 12/29/2016 - Disruption of surgical wound 09/2015 Right tibia - Dorsalgia 12/29/2016 - Dyslipidemia - Gastric bypass status for obesity 12/29/2016 - Gastroesophageal reflux disease without esophagitis 10/08/2016 - HTN (hypertension) - Muscular weakness 12/29/2016 - Primary osteoarthritis involving multiple joints 12/29/2016 - Pure hypercholesterolemia - Rheumatoid arthritis ([facility]) 2007 - Sleep apnea - Stented coronary artery 12/29/2016 PAST SURGICAL HISTORY: PAST SURGICAL HISTORY Procedure Laterality Date - CC CORONARY STENT 11/20/2012 [facility] - CC CORONARY STENT 12/20/2014 [facility], Cfx - SECTION HX - COLONOSCOPY 06/10/2017 [facility], Nonspecific cecal ulcer - GASTRIC BYPASS HX 1986 - HERNIA REPAIR HX 1987; 1989 - PAST SURGICAL HISTORY OF Right 09/2015 right tibia fracture ORIF - PAST SURGICAL HISTORY OF Right 01/20/2016 Removal of hardware, right tibia - TOTAL KNEE REPLACEMENT Right 2003 [facility] Gen. - TOTAL KNEE REPLACEMENT Left 2004 [facility] Gen. FAMILY HISTORY: No family [...] consult WOUND Observed: 05/22/2018 Status: F Source: ROUND TOP CULTURE/STAIN 8:30 PM [facility] REPOSITORY Sp. Request/Comment: - Swab Smear Result [...] clinically indicated. Performed By: #### WCUL #### [facility] [address] [place] [id number] ED PROV NOTE Observed: 05/22/2018 Status: COMPLETED Source: ROUND TOP 8:06 PM [facility] REPOSITORY HNO ID: [id number] Author: Karan Diallo DO Service: Emergency Medicine [...] 10/08/2016 - COPD (chronic obstructive pulmonary disease) ([facility]) - Depressive disorder 12/29/2016 - Disruption of surgical wound 09/2015 Right tibia - Dorsalgia 12/29/2016 - Dyslipidemia - Gastric bypass status for obesity 12/29/2016 - Gastroesophageal reflux disease without esophagitis 10/08/2016 - HTN (hypertension) - Muscular weakness 12/29/2016 - Primary osteoarthritis involving multiple joints 12/29/2016 - Pure hypercholesterolemia - Rheumatoid arthritis ([facility]) 2007 - Sleep apnea - Stented coronary artery 12/29/2016 PAST SURGICAL HISTORY Procedure Laterality Date - CC CORONARY STENT 11/20/2012 [facility] - CC CORONARY STENT 12/20/2014 [facility], Cfx - SECTION [facility] - GASTRIC BYPASS HX 1986 - HERNIA REPAIR HX 1987; 1989 - PAST SURGICAL HISTORY OF Right 09/2015 right tibia fracture ORIF - PAST SURGICAL HISTORY OF Right 01/20/2016 Removal of hardware, right tibia - TOTAL KNEE REPLACEMENT Right 2003 [facility] Gen. - TOTAL KNEE REPLACEMENT Left 2004 [facility] Gen. No family history on [...] signs reviewed Triage note reviewed Medications administered Ten Sleep Cipro vancomycin Reviewed and summarized previous medical records including previous wound culture is showing pseudomonas growth Zosyn resistant Discussed with admitting hospitalist team physician assistant spa manager Giancarlo Dangelo - agreeable to admission for [...] of the patient and have reviewed the PA/GRE INSTRUCTOR note. My [place] findings include: History is [...] 0748 EKG Observed: 05/22/2018 Status: F Source: ROUND TOP 7:47 PM [facility] OTHER [place] REPOSITORY NAME : ROSA BELTRAN PID : [id number] : 1935 Gender : Female Race : Unknown ORD : [id number] Procedure Date : May 22 2018 19:47:13 Edit Date : May 24 2018 08:31:12 Diagnosis:ATRIAL FIBRILLATION LOW VOLTAGE QRS RSR' OR QR PATTERN IN V1 SUGGESTS RIGHT VENTRICULAR CONDUCTION DELAY BORDERLINE ECG WHEN COMPARED WITH ECG OF 17-MAR-2018 19:25, RSR' PATTERN IN V1 HAS REPLACED INCOMPLETE RIGHT BUNDLE BRANCH BLOCK Confirmed by MD Guillaume Qarab ([id number]) on 05/24/2018 8:31:09 AM Ventricular Rate : 79 BPM Atrial Rate : 101 BPM QRS Duration : 78 ms Q-T Interval : 348 ms QTC Calculation(Bezet) : 399 ms R [place] : 82 degrees T [place] : 7 degrees Test Reason : Arrhythmia Location : 1 : ER 9 Overread By : MD Guillaume Qarab Edited By : MD Guillaume Qarab Referred By : , Acquired by : MER, Observed: 05/22/2018 Status: F Source: ROUND TOP BLOOD CULTURE 7:35 PM [facility] REPOSITORY Sp. Request/Comment: - The blood culture bottles are underfilled. Adding volume lower or higher than the 8 to 10 mL per bottle, which is the manufacturers recommended volume, may adversely affect the re covery and/or detection of organisms. 8.2CC Culture Result - No growth 5 days Performed By: #### BLCUL #### [facility] [address] [place], [place] [address] Observed: 05/22/2018 Status: F Source: ROUND TOP BLOOD CULTURE 7:15 PM [facility] REPOSITORY Culture Result - No growth 5 days Performed By: #### BLCUL #### [facility] [address] [place], [place] [address] XR TIBIA FIBULA 2V Observed: 05/22/2018 Status: F Source: ROUND TOP AP/LAT RT 7:08 PM CLINIC OTHER CAMPUS REPOSITORY * * [...] OF OSTEOMYELITIS REMOTE POSTTRAUMATIC AND POSTSURGICAL CHANGE Automatic Grinder Operator: [facility] Transcribe Date/Time: May 22 2018 7:26P Dictated by : SHAMIKA MCKEON MD This examination was interpreted and the report reviewed and electronically signed by: SHAMIKA MCKEON MD on May 22 2018 7:32PM EST [id number] XR CHEST 1V FRONTAL Observed: 05/22/2018 Status: F Source: [facility] 7:07 PM CLINIC OTHER CAMPUS REPOSITORY [...] acute bony abnormality. Chronic rotator cuff tears. Automatic Grinder Operator: [employer] Transcribe Date/Time: May 22 2018 7:22P Dictated by : SHAMIKA MCKEON MD This examination was interpreted and the report reviewed and electronically signed by: SHAMIKA MCKEON MD on May 22 2018 7:24PM EST [id number] ANKLE 3V AP/LAT/OBL Observed: 05/22/2018 Status: F Source: ROUND TOP RT 7:07 PM CLINIC OTHER CAMPUS REPOSITORY * [...] OF OSTEOMYELITIS REMOTE POSTTRAUMATIC AND POSTSURGICAL CHANGE Automatic Grinder Operator: DWIGHT Transcribe Date/Time: May 22 2018 7:26P Dictated by : SHAMIKA MCKEON MD This examination was interpreted and the report reviewed and electronically signed by: SHAMIKA MCKEON MD on May 22 2018 7:32PM EST [id number] C-REACTIVE PROTEIN Collected: 05/22/2018 Status: F Source: ROUND TOP 6:37 PM CLINIC OTHER CAMPUS REPOSITORY TYPE CODE TESTS RESULT OUT OF REFERENCE UNITS RANGE LAB CRP <0.9 mg/dL High C-Reactive 5.0 Protein Performed By: #### CRP #### [facility] [address] [place], [place] [address] #### WSR #### [place] [address] SED RATE WESTERGREN Collected: 05/22/2018 Status: F Source: ROUND TOP 6:37 PM [facility] OTHER CAMPUS REPOSITORY TYPE CODE TESTS RESULT OUT OF REFERENCE UNITS RANGE LAB WSR 0-20 mm/hr Sed Rate High Westergren 79 Performed By: #### CRP #### [facility] [address] [place], [place] [address] #### WSR #### [place] [address] CBC AND DIFFERENTIAL Collected: 05/22/2018 Status: F Source: ROUND TOP 6:21 PM [facility] OTHER CAMPUS REPOSITORY TYPE CODE TESTS RESULT [...] k/uL Abs Lymph 1.85 LAB AMONO % Bowman% 7.4 LAB AAMONO <0.87 k/uL Abs Bowman 0.61 LAB AEOS % Eosin% 2.4 LAB AAEOS <0.46 k/uL Abs Eosin 0.20 LAB ABASO % Baso% 0.5 LAB AABASO <0.11 k/uL Abs Baso 0.04 Performed By: #### CBCDIF, PT, CMP #### [facility] [address] [place] [address] PROTIME Collected: 05/22/2018 Status: F Source: ROUND TOP 6:21 PM CLINIC OTHER CAMPUS REPOSITORY TYPE CODE TESTS RESULT OUT OF RANGE REFERENCE UNITS LAB PSEC 9.7-13.0 sec High PT Sec 22.4 LAB INR 0.9-1.3 High PT INR 2.2 Result Comment: Vitamin K Antagonist (VKA) Therapeutic Range: INR 2 to 3 (Target INR of 2.5) Note: For patients treated with VKA drugs, such as warfarin, the [place] [employer] 2012 Guideline recommends [...] GH, et al. Chest 2012, 141:7S-47S Genevieve RA et al. [facility] 2017, 70: 252-289 Performed By: #### CBCDIF, PT, CMP #### [facility] [address] [facility] [phone] COMP METABOLIC PANEL Collected: 05/22/2018 Status: F Source: ROUND TOP 6:21 PM CLINIC OTHER CAMPUS REPOSITORY TYPE [...] 74-99 mg/dL Glucose 87 Result Comment: The [place] [employer] (ADA) provides guidance for cutoff [...] Standards of Medical Care in Diabetes 2016, [place] [employer]. Diabetes Care. 2016.39(Suppl 1). LAB [...] Performed By: #### CBCDIF, PT, CMP #### [facility] [address] [place] [phone] NT PRO BNP Collected: 05/22/2018 Status: F Source: ROUND TOP 6:21 PM [facility] REPOSITORY TYPE CODE TESTS RESULT OUT OF REFERENCE UNITS RANGE LAB PBNP <450 pg/mL High PRO B Natr 1600 Peptide Performed By: #### NTBNP #### [facility] [address] [facility] [phone] ED NOTE Observed: 05/22/2018 Status: COMPLETED Source: ROUND TOP 6:01 PM [facility] REPOSITORY HNO ID: [id number] Author: Aurelia ParksRn) ELENA Simpson Service: (none) Author Type: Registered Nurse Type: ED Notes Filed: 05/22/2018 6:02 PM Note Text: Pt presents with odell leg edema, right lower leg bandage seeping clear fluid. Pt to BR and voided qs. Back to bed, right lower leg bandage changed and redressed, bandage was soaked. Pt's right leg elevated on blankets. ED NOTE Observed: 05/22/2018 Status: COMPLETED Source: ROUND TOP 4:02 PM [facility] REPOSITORY HNO ID: [id number] Author: Nasra ParksRn) ELENA Wan Service: (none) Author Type: Registered Nurse Type: ED Notes Filed: 05/22/2018 4:03 PM Note Text: Patient presents from wound center with increased edema in BLLE, weeping from BLLE wounds. Increased pain in legs and feet. PROGRESS Observed: 05/22/2018 Status: COMPLETED Source: ROUND TOP 3:45 PM [facility] REPOSITORY HNO ID: [id number] Author: Luis Simons Service: (none) Author Type: Nurse Practitioner Type: Progress Notes Filed: 06/02/2018 7:07 AM Note Text: DATE OF VISIT: 05/22/2018 REASON FOR VISIT: Non-healing lower extremity wound. HISTORY OF PRESENT ILLNESS: Rosa Beltran is a 81 year old female who presents to the [facility] for further [...] followed by Dr. Jaskaran Chance at the [facility]. It was felt that her home support system was inadequate and that she may not have the resources in her home environment to appropriately care for her needs. In this regard, a social work lecturer consultation had been recommended on several occassions, but patient apparently insisted on remaining in her home environment despite that there was thought that is may be less than optimal. The patient is here at the [facility] for a second opinion regarding management of the abovementioned bilateral lower extremity wounds. She offers no other complaints. She denies any fevers, chills, wound-related pain or other related symptoms. INTERVAL HISTORY: 05/19/18 Patient presents for a routine follow- up. She was recently admitted to [facility] in 03/2018 with right leg wound infection. [...] (HCC) - CAD (coronary artery disease) Dr. Brenad Awan [facility], Promus element KIMMY LAD 11/20/2012, Stress [...] 10/08/2016 - COPD (chronic obstructive pulmonary disease) ([facility]) - Depressive disorder 12/29/2016 - Disruption of surgical wound 09/2015 Right tibia - Dorsalgia 12/29/2016 - Dyslipidemia - Gastric bypass status for obesity 12/29/2016 - Gastroesophageal reflux disease without esophagitis 10/08/2016 - HTN (hypertension) - Muscular weakness 12/29/2016 - Primary osteoarthritis involving multiple joints 12/29/2016 - Pure hypercholesterolemia - Rheumatoid arthritis ([facility]) 2007 - Sleep apnea - Stented coronary artery 12/29/2016 PAST SURGICAL HISTORY Procedure Laterality Date - CC CORONARY STENT 11/20/2012 KIMMY LAD - CC CORONARY STENT 12/20/2014 KIMMY, Cfx - SECTION HX - COLONOSCOPY 06/10/2017 [facility], Nonspecific cecal ulcer - GASTRIC BYPASS HX 1986 - HERNIA REPAIR HX 1987; 1989 - PAST SURGICAL HISTORY OF Right 09/2015 right tibia fracture ORIF - PAST SURGICAL HISTORY OF Right 01/20/2016 Removal of hardware, right tibia - TOTAL KNEE REPLACEMENT Right 2003 [facility] Gen. - TOTAL KNEE REPLACEMENT Left 2004 [facility] Gen. MEDICATIONS ergocalciferol, vitamin D2, [...] Rubor of Dependency: Negative (Y) Positive (N) [place] Examination: Comments: +3 edema BLEs Measurements: Right Calf: 60 cm Right Ankle: 34.5 cm Left Calf: 54 cm Left Ankle: 37 cm Neuro: Alert AND oriented x3, PROCESS IMPROVEMENT ANALYST II-XII grossly intact, reflexes 2+ and symmetric, [...] No acute fracture or bony destruction. ? Automatic Grinder Operator: DWIGHT ? Transcribe Date/Time: Oct 14 2017 [...] No acute fracture or bony destruction. ? Automatic Grinder Operator: DWIGHT ? Transcribe Date/Time: Oct 14 2017 [...] and Edge attached to base Periwound Tissue: [place], dry and intact, No fluctuance, induration or [...] and Edge attached to base Periwound Tissue: [place], dry and intact, No fluctuance, induration or [...] -- Week 5 Wound Bed (Post-debridement): 100% [place] % of Healthy tissue: Undermining: No Tunneling: No Tendon/bone exposed: NO Wound Edge/Margins: Well-defined wound edges and Edge attached to base Periwound Tissue: [place], dry and intact, No fluctuance, induration or [...] our RN. Luis Simons CNP Charge Capture: [id number] CNOV Observed: 05/22/2018 Status: COMPLETED Source: ROUND TOP 3:45 PM [facility] OTHER CAMPUS REPOSITORY Office Visit (PLWDMR) ROSA BELTRAN ([id number]) 1935 F Date Time Provider Department 05/22/18 3:45 PM LUIS SIMONS, (LOI) PLWDMR During your visit today, we recorded the following information about you: Temperature Pulse Respiration Blood pressure 98.2 degrees 71/minute 18/minute 146/67 Luis Simons APRN.CNP 06/02/2018 7:07 AM Signed DATE OF VISIT: 05/22/2018 REASON FOR VISIT: Non-healing lower extremity wound. HISTORY OF PRESENT ILLNESS: Rosa Beltran is a 81 year old female who presents to the [facility] for further [...] followed by Dr. Jaskaran Chance at the [facility]. It was felt that her home support system was inadequate and that she may not have the resources in her home environment to appropriately care for her needs. In this regard, a social work lecturer consultation had been recommended on several occassions, but patient apparently insisted on remaining in her home environment despite that there was thought that is may be less than optimal. The patient is here at the [facility] for a second opinion regarding management of the abovementioned bilateral lower extremity wounds. She offers no other complaints. She denies any fevers, chills, wound-related pain or other related symptoms. INTERVAL HISTORY: 05/19/18 Patient presents for a routine follow- up. She was recently admitted to [facility] in 03/2018 with right leg wound infection. [...] with hypoxia (HCC) 09/30/2017 - Atrial fibrillation ([facility]) - CAD (coronary artery disease) Dr. Brneda Awan [facility], Promus element KIMMY LAD 11/20/2012, [...] 10/08/2016 - COPD (chronic obstructive pulmonary disease) ([facility]) - Depressive disorder 12/29/2016 - Disruption of surgical wound 09/2015 Right tibia - Dorsalgia 12/29/2016 - Dyslipidemia - Gastric bypass status for obesity 12/29/2016 - Gastroesophageal reflux disease without esophagitis 10/08/2016 - HTN (hypertension) - Muscular weakness 12/29/2016 - Primary osteoarthritis involving multiple joints 12/29/2016 - Pure hypercholesterolemia - Rheumatoid arthritis ([facility]) 2007 - Sleep apnea - Stented coronary artery 12/29/2016 PAST SURGICAL HISTORY Procedure Laterality Date - CC CORONARY STENT 11/20/2012 KIMMY LAD - CC CORONARY STENT 12/20/2014 KIMMY, Cfx - SECTION HX - [facility], Nonspecific cecal ulcer - GASTRIC BYPASS HX 1986 - HERNIA REPAIR HX 1987; 1989 - PAST SURGICAL HISTORY OF Right 09/2015 right tibia fracture ORIF - PAST SURGICAL HISTORY OF Right 01/20/2016 Removal of hardware, right tibia - TOTAL KNEE REPLACEMENT Right 2003 [facility] Gen. - TOTAL KNEE REPLACEMENT Left 2004 [facility] Gen. MEDICATIONS ergocalciferol, vitamin D2, [...] Rubor of Dependency: Negative (Y) Positive (N) [place] Examination: Comments: +3 edema BLEs Measurements: Right Calf: 60 cm Right Ankle: 34.5 cm Left Calf: 54 cm Left Ankle: 37 cm Neuro: Alert AND oriented x3, PROCESS IMPROVEMENT ANALYST II-XII grossly intact, reflexes 2+ and symmetric, [...] No acute fracture or bony destruction. ? Automatic Grinder Operator: DWIGHT ? Transcribe Date/Time: Oct 14 2017 [...] No acute fracture or bony destruction. ? Automatic Grinder Operator: DWIGHT ? Transcribe Date/Time: Oct 14 2017 [...] and Edge attached to base Periwound Tissue: [place], dry and intact, No fluctuance, induration or [...] and Edge attached to base Periwound Tissue: [place], dry and intact, No fluctuance, induration or [...] -- Week 5 Wound Bed (Post-debridement): 100% [place] % of Healthy tissue: Undermining: No Tunneling: No Tendon/bone exposed: NO Wound Edge/Margins: Well-defined wound edges and Edge attached to base Periwound Tissue: [place], dry and intact, No fluctuance, induration or [...] our RN. Luis Simons CNP Charge Capture: [id number] Tiffanie Humphrey RN, RN 05/22/2018 3:53 PM [...] Tiffanie Humphrey RN Referring Provider: CHINTAN DEMPSEY [[id number]] Allergies As of Date: 05/22/2018 (No Known Allergies) Date Reviewed: 05/22/2018 Reviewed by: Kam (Elena) ELENA Kaiser - Fully Assessed Reason for [...] Leg ulcer, right, with fat layer exposed ([facility]) *INVALID FOR* Venous stasis ulcer of right [...] More... CKD (chronic kidney disease), stage III ([facility]) [*INVALID FOR* Priority: D More... Hyperkalemia [E87.5] INVALID FOR* More... Visit Notes: >> Tiffanie (Elena) ELENA Humphrey Mon May 22, 2018 3:52 [...] PROTIME W/INR Collected: 05/22/2018 Status: F Source: [facility] [place] 6:38 AM [facility] REPOSITORY TYPE CODE TESTS RESULT OUT OF REFERENCE UNITS RANGE LAB L9200.1001 11.9-14.4 SEC High PROTIME ISTAT 31.5 Result Comment: Reference Range 11.9 - 14.4 LAB L9200.2000 Normal INR ISTAT 2.80 Result Comment: Critical Value > 3.5 Performed By: #### [id number] #### [facility] Point of Care [address] [place] [address] PROGRESS Observed: 05/19/2018 Status: COMPLETED Source: ROUND TOP 1:00 PM CLINIC OTHER CAMPUS REPOSITORY HNO ID: [id number] Author: Luis Lyles (Jacker Feeder) Carla Service: (none) Author Type: Nurse Practitioner Type: Progress Notes Filed: 06/01/2018 1:58 PM Note Text: DATE OF VISIT: 05/19/2018 REASON FOR VISIT: Non-healing lower extremity wound. HISTORY OF PRESENT ILLNESS: Rosa Beltran is a 81 year old female who presents to the [facility] for further [...] followed by Dr. Jaskaran Chance at the [facility]. It was felt that her home support system was inadequate and that she may not have the resources in her home environment to appropriately care for her needs. In this regard, a social work lecturer consultation had been recommended on several occassions, but patient apparently insisted on remaining in her home environment despite that there was thought that is may be less than optimal. The patient is here at the [facility] for a second opinion regarding management of the abovementioned bilateral lower extremity wounds. She offers no other complaints. She denies any fevers, chills, wound-related pain or other related symptoms. INTERVAL HISTORY: 05/19/18 Patient presents for a routine follow- up. She was recently admitted to [facility] in 03/2018 with right leg wound infection. [...] with hypoxia (HCC) 09/30/2017 - Atrial fibrillation ([facility]) - CAD (coronary artery disease) Dr. Brenda [...] 10/08/2016 - COPD (chronic obstructive pulmonary disease) ([facility]) - Depressive disorder 12/29/2016 - Disruption of surgical wound 09/2015 Right tibia - Dorsalgia 12/29/2016 - Dyslipidemia - Gastric bypass status for obesity 12/29/2016 - Gastroesophageal reflux disease without esophagitis 10/08/2016 - HTN (hypertension) - Muscular weakness 12/29/2016 - Primary osteoarthritis involving multiple joints 12/29/2016 - Pure hypercholesterolemia - Rheumatoid arthritis ([facility]) 2007 - Sleep apnea - Stented coronary artery 12/29/2016 PAST SURGICAL HISTORY Procedure Laterality Date - CC CORONARY STENT 11/20/2012 KIMMY LAD - CC CORONARY STENT 12/20/2014 KIMMY, Cfx - SECTION HX - COLONOSCOPY 06/10/2017 [facility], Nonspecific cecal ulcer - GASTRIC BYPASS HX 1986 - HERNIA REPAIR HX 1988; 1989 - PAST SURGICAL HISTORY OF Right 09/2015 right tibia fracture ORIF - PAST SURGICAL HISTORY OF Right 01/20/2016 Removal of hardware, right tibia - TOTAL KNEE REPLACEMENT Right 2003 [facility] Gen. - TOTAL KNEE REPLACEMENT Left 2004 [facility] Gen. MEDICATIONS ergocalciferol, vitamin D2, [...] Rubor of Dependency: Negative (Y) Positive (N) [place] Examination: Comments: +3 edema BLEs Measurements: Right Calf: 60 cm Right Ankle: 34.5 cm Left Calf: 54 cm Left Ankle: 37 cm Neuro: Alert AND oriented x3, PROCESS IMPROVEMENT ANALYST II-XII grossly intact, reflexes 2+ and symmetric, [...] No acute fracture or bony destruction. ? Automatic Grinder Operator: PSCB ? Transcribe Date/Time: Oct 14 2017 [...] No acute fracture or bony destruction. ? Automatic Grinder Operator: DWIGHT ? Transcribe Date/Time: Oct 14 2017 [...] and Edge attached to base Periwound Tissue: [place], dry and intact, No fluctuance, induration or [...] and Edge attached to base Periwound Tissue: [place], dry and intact, No fluctuance, induration or [...] -- Week 5 Wound Bed (Post-debridement): 100% [place] % of Healthy tissue: Undermining: No Tunneling: No Tendon/bone exposed: NO Wound Edge/Margins: Well-defined wound edges and Edge attached to base Periwound Tissue: [place], dry and intact, No fluctuance, induration or [...] our RN. Luis Simons CNP Charge Capture: [id number] CNOV Observed: 05/19/2018 Status: COMPLETED Source: ROUND TOP 1:00 PM CLINIC OTHER CAMPUS REPOSITORY Office Visit (PLWDMR) ROSA BELTRAN ([id number]) 1935 F Date Time Provider Department 05/19/18 1:00 PM LUIS SIMONS, (TESTING COORDINATOR) PLWDMR During your visit today, we recorded the following information about you: Temperature Pulse Respiration Blood pressure 98.4 degrees 67/minute 19/minute 121/75 Luis Simons APRN.CNP 06/01/2018 1:58 PM Signed DATE OF VISIT: 05/19/2018 REASON FOR VISIT: Non-healing lower extremity wound. HISTORY OF PRESENT ILLNESS: Rosa Beltran is a 81 year old female who presents to the [facility] for further [...] followed by Dr. Jaskaran Chance at the [facility]. It was felt that her home support system was inadequate and that she may not have the resources in her home environment to appropriately care for her needs. In this regard, a social work lecturer consultation had been recommended on several occassions, but patient apparently insisted on remaining in her home environment despite that there was thought that is may be less than optimal. The patient is here at the [facility] for a second opinion regarding management of the abovementioned bilateral lower extremity wounds. She offers no other complaints. She denies any fevers, chills, wound-related pain or other related symptoms. INTERVAL HISTORY: 05/19/18 Patient presents for a routine follow- up. She was recently admitted to [facility] in 03/2018 with right leg wound infection. [...] with hypoxia (HCC) 09/30/2017 - Atrial fibrillation ([facility]) - CAD (coronary artery disease) Dr. Brenda [...] 10/08/2016 - COPD (chronic obstructive pulmonary disease) ([facility]) - Depressive disorder 12/29/2016 - Disruption of surgical wound 09/2015 Right tibia - Dorsalgia 12/29/2016 - Dyslipidemia - Gastric bypass status for obesity 12/29/2016 - Gastroesophageal reflux disease without esophagitis 10/08/2016 - HTN (hypertension) - Muscular weakness 12/29/2016 - Primary osteoarthritis involving multiple joints 12/29/2016 - Pure hypercholesterolemia - Rheumatoid arthritis ([facility]) 2007 - Sleep apnea - Stented coronary artery 12/29/2016 PAST SURGICAL HISTORY Procedure Laterality Date - CC CORONARY STENT 11/20/2012 KIMMY LAD - CC CORONARY STENT 12/20/2014 KIMMY, Cfx - SECTION HX - COLONOSCOPY 06/10/2017 [facility], Nonspecific cecal ulcer - GASTRIC BYPASS HX 1986 - HERNIA REPAIR HX 1987; 1989 - PAST SURGICAL HISTORY OF Right 09/2015 right tibia fracture ORIF - PAST SURGICAL HISTORY OF Right 01/20/2016 Removal of hardware, right tibia - TOTAL KNEE REPLACEMENT Right 2003 [facility] Gen. - TOTAL KNEE REPLACEMENT Left 2004 [facility] Gen. MEDICATIONS ergocalciferol, vitamin D2, [...] Rubor of Dependency: Negative (Y) Positive (N) [place] Examination: Comments: +3 edema BLEs Measurements: Right Calf: 60 cm Right Ankle: 34.5 cm Left Calf: 54 cm Left Ankle: 37 cm Neuro: Alert AND oriented x3, PROCESS IMPROVEMENT ANALYST II-XII grossly intact, reflexes 2+ and symmetric, [...] No acute fracture or bony destruction. ? Automatic Grinder Operator: DWIGHT ? Transcribe Date/Time: Oct 14 2017 [...] No acute fracture or bony destruction. ? Automatic Grinder Operator: DWIGHT ? Transcribe Date/Time: Oct 14 2017 [...] and Edge attached to base Periwound Tissue: [place], dry and intact, No fluctuance, induration or [...] and Edge attached to base Periwound Tissue: [place], dry and intact, No fluctuance, induration or [...] -- Week 5 Wound Bed (Post-debridement): 100% [place] % of Healthy tissue: Undermining: No Tunneling: No Tendon/bone exposed: NO Wound Edge/Margins: Well-defined wound edges and Edge attached to base Periwound Tissue: [place], dry and intact, No fluctuance, induration or [...] our RN. Luis Simons CNP Charge Capture: [id number] Kayla Swenson Amadeo Noonan 05/19/2018 2:05 PM Addendum Nursing Note Dx: [...] following changes to the Wound Center at [phone] or go to the Emergency Department: ? [...] REDNESS AROUND THE LIPS Luis Simons CNP/kgr Referring Provider: CHINTAN DEMPSEY [[id number]] Allergies As of Date: 05/19/2018 (No Known [...] following changes to the Wound Center at [phone] or go to the Emergency Department: ? [...] 06/01/18 LUCIANO Observed: 05/17/2018 Status: COMPLETED Source: ROUND TOP 12:00 AM CLINIC OTHER CAMPUS REPOSITORY Telephone (PLWDMR) ROSA BELTRAN ([id number]) 1935 F Date Time Provider Department 05/17/18 LUIS SIMONS, (TESTING COORDINATOR) PLWD During your visit today, we recorded the following information about you: Maribel Bush 05/17/2018 3:11 PM Signed Malka called from [facility] and she said they do not have Coban 2 but it should arrive in the next day or two what could they substitute for this until it comes in or can this wait until Tuesday when patient comes in for her appointment. The Drymax has arrived and [facility] also asked if there are changes to the dressing if you could send a dressing change for a couple days until they are orderded if possible. Thank you. She can be reached at [phone]. Luis Simons APRN.LOI 05/18/2018 11:09 AM Signed ----- Message from Maribel Bush sent at 05/15/2018 12:56 PM EDT ----- Regarding: compression dressing Contact: You spoke to Jessica Tanner earlier regarding above patient and she stated they are not able to do Compression Dressings on patient due to not enough people are trained and she will notify the director of social work at The facility. She would like you to call her at [phone]. Thank you. Luis Simons APRN.LOI 05/30/2018 12:39 PM Addendum Return call made to Lela Tanner on 05/18/18 and discussed alternative compression [...] 05/19/18 POTASSIUM Collected: 05/16/2018 Status: F Source: [facility] 6:45 AM [facility] REPOSITORY Order Comment: 303-2 TYPE CODE TESTS RESULT OUT OF RANGE REFERENCE UNITS LAB L501.5600 3.5-5.1 mmol/L Normal K 4.7 Performed By: #### [id number] #### [facility] [address] [place], [place] [address] [place], [address] PROGRESS Observed: 05/15/2018 Status: COMPLETED Source: ROUND TOP 3:00 PM [facility] OTHER CAMPUS REPOSITORY HNO ID: [id number] Author: Luis Simons Service: (none) Author Type: Nurse Practitioner Type: Progress Notes Filed: 05/26/2018 6:46 AM Note Text: DATE OF VISIT: 05/15/2018 REASON FOR VISIT: Non-healing lower extremity wound. HISTORY OF PRESENT ILLNESS: Rosa Beltran is a 81 year old female who presents to the [facility] for further [...] followed by Dr. Jaskaran Chance at the [facility]. It was felt that her home support system was inadequate and that she may not have the resources in her home environment to appropriately care for her needs. In this regard, a social work lecturer consultation had been recommended on several occassions, but patient apparently insisted on remaining in her home environment despite that there was thought that is may be less than optimal. The patient is here at the [facility] for a second opinion [...] 10/08/2016 - COPD (chronic obstructive pulmonary disease) ([facility]) - Depressive disorder 12/29/2016 - Disruption of surgical wound 09/2015 Right tibia - Dorsalgia 12/29/2016 - Dyslipidemia - Gastric bypass status for obesity 12/29/2016 - Gastroesophageal reflux disease without esophagitis 10/08/2016 - HTN (hypertension) - Muscular weakness 12/29/2016 - Primary osteoarthritis involving multiple joints 12/29/2016 - Pure hypercholesterolemia - Rheumatoid arthritis (FORM[facility]LY [facility]) 2007 - Sleep apnea - Stented coronary artery 12/29/2016 PAST SURGICAL HISTORY Procedure Laterality Date - CC CORONARY STENT 11/20/2012 KIMMY LAD - CC CORONARY STENT 12/20/2014 KIMMY, Cfx - SECTION HX - COLONOSCOPY 06/10/2017 [facility], Nonspecific cecal ulcer - GASTRIC BYPASS HX 1986 - HERNIA REPAIR HX 1987; 1989 - PAST SURGICAL HISTORY OF Right 09/2015 right tibia fracture ORIF - PAST SURGICAL HISTORY OF Right 01/20/2016 Removal of hardware, right tibia - TOTAL KNEE REPLACEMENT Right 2003 [facility] Gen. - TOTAL KNEE REPLACEMENT Left 2004 [facility] Gen. MEDICATIONS ergocalciferol, vitamin D2, [...] Rubor of Dependency: Negative (Y) Positive (N) [place] Examination: Comments: Measurements: Right Calf: 57 cm Right Ankle: 37 cm Left Calf: 50.5 cm Left Ankle: 33.5 cm Neuro: Alert AND oriented x3, PROCESS IMPROVEMENT ANALYST II-XII grossly intact, reflexes 2+ and symmetric, [...] No acute fracture or bony destruction. ? Automatic Grinder Operator: DWIGHT ? Transcribe Date/Time: Oct 14 2017 [...] No acute fracture or bony destruction. ? Automatic Grinder Operator: DWIGHT ? Transcribe Date/Time: Oct 14 2017 [...] and Edge attached to base Periwound Tissue: [place], dry and intact, No fluctuance, induration or [...] and Edge attached to base Periwound Tissue: [place], dry and intact, No fluctuance, induration or [...] -- Week 5 Wound Bed (Post-debridement): 100% [place] % of Healthy tissue: Undermining: No Tunneling: No Tendon/bone exposed: NO Wound Edge/Margins: Well-defined wound edges and Edge attached to base Periwound Tissue: [place], dry and intact, No fluctuance, induration or [...] Systemis Rx: Begin: Doxycycline to prevent reoccurant [id number] mg PO BID x 14 days then [...] worsening symptoms. Luis Simons CNP Charge Capture: [id number]; [id number] (x5) OSEIOV Observed: 05/15/2018 Status: COMPLETED Source: ROUND TOP 3:00 PM CLINIC OTHER CAMPUS REPOSITORY Office Visit (PLWDMR) ROSA BELTRAN ([id number]) 1935 F Date Time Provider Department 05/15/18 [...] year old female who presents to the [facility] for further [...] followed by Dr. Jaskaran Chance at the [facility]. It was felt that her home support system was inadequate and that she may not have the resources in her home environment to appropriately care for her needs. In this regard, a social work lecturer consultation had been recommended on several occassions, but patient apparently insisted on remaining in her home environment despite that there was thought that is may be less than optimal. The patient is here at the [facility] for a second opinion [...] dressing changes. On 04/20/18, she presented to [facility] in [place] as she noticed worsening drainage from her right leg along with pain, increased swelling, and warmth. White count was elevated at 21,000 with a left shift. X-rays of her right leg were done, which did not show any acute changes. She was admitted to [facility] for further management. She was seen by [...] were adjusted.?The patient was discharged to a snf facility on 04/26/18 in stable condition. Today, [...] with hypoxia (HCC) 09/30/2017 - Atrial fibrillation ([facility]) - CAD (coronary artery disease) Dr. Brenda [...] 10/08/2016 - COPD (chronic obstructive pulmonary disease) ([facility]) - Depressive disorder 12/29/2016 - Disruption of surgical wound 09/2015 Right tibia - Dorsalgia 12/29/2016 - Dyslipidemia - Gastric bypass status for obesity 12/29/2016 - Gastroesophageal reflux disease without esophagitis 10/08/2016 - HTN (hypertension) - Muscular weakness 12/29/2016 - Primary osteoarthritis involving multiple joints 12/29/2016 - Pure hypercholesterolemia - Rheumatoid arthritis ([facility]) 2007 - Sleep apnea - Stented coronary artery 12/29/2016 PAST SURGICAL HISTORY Procedure Laterality Date - CC CORONARY STENT 11/20/2012 KIMMY LAD - CC CORONARY STENT 12/20/2014 KIMMY, Cfx - SECTION HX - [facility] Nons[facility] - GASTRIC BYPASS HX 1986 - HERNIA REPAIR HX 1987; 1989 - PAST SURGICAL HISTORY OF Right 09/2015 right tibia fracture ORIF - PAST SURGICAL HISTORY OF Right 01/20/2016 Removal of hardware, right tibia - TOTAL KNEE REPLACEMENT Right 2003 [facility] Gen. - TOTAL KNEE REPLACEMENT Left 2004 [facility] Gen. MEDICATIONS ergocalciferol, vitamin D2, [...] Rubor of Dependency: Negative (Y) Positive (N) [place] Examination: Comments: Measurements: Right Calf: 57 cm Right Ankle: 34.5 cm Left Calf: 52.6 cm Left Ankle: 34.5 cm Neuro: Alert AND oriented x3, PROCESS IMPROVEMENT ANALYST II-XII grossly intact, reflexes 2+ and symmetric, [...] No acute fracture or bony destruction. ? Automatic Grinder Operator: DWIGHT ? Transcribe Date/Time: Oct 14 2017 [...] No acute fracture or bony destruction. ? Automatic Grinder Operator: DWIGHT ? Transcribe Date/Time: Oct 14 2017 [...] and Edge attached to base Periwound Tissue: [place], dry and intact, No fluctuance, induration or [...] and Edge attached to base Periwound Tissue: [place], dry and intact, No fluctuance, induration or [...] -- Week 5 Wound Bed (Post-debridement): 100% [place] % of Healthy tissue: Undermining: No Tunneling: No Tendon/bone exposed: NO Wound Edge/Margins: Well-defined wound edges and Edge attached to base Periwound Tissue: [place], dry and intact, No fluctuance, induration or [...] initial assessment today Wound Bed (Post-debridement): 100% [place] % of Healthy tissue: Undermining: No Tunneling: [...] any concerns or worsening symptoms. Luis Simons, LOI Charge Capture: [id number] Peter Jason MA, MA 05/15/2018 4:14 PM Addendum Nursing Note Dx: [...] following changes to the Wound Center at [phone] or go to the Emergency Department: ? [...] Luis Simons CNP/csm Referring Provider: CHINTAN DEMPSEY [[id number]] Allergies As of Date: 05/15/2018 (No Known [...] following changes to the Wound Center at [phone] or go to the Emergency Department: ? [...] 05/26/18 PROGRESS Observed: 05/15/2018 Status: COMPLETED Source: ROUND TOP 3:00 PM CLINIC OTHER CAMPUS REPOSITORY HNO ID: [id number] Author: Luis Lyles (Jacker Feeder) Carla Service: (none) Author Type: Nurse Practitioner Type: Progress Notes Filed: 08/17/2018 10:55 AM Note Text: DATE OF VISIT: 05/15/2018 REASON FOR VISIT: Non-healing lower extremity wound. HISTORY OF PRESENT ILLNESS: Rosa Beltran is a 81 year old female who presents to the [facility] for further [...] followed by Dr. Jaskaran Chance at the [facility]. It was felt that her home support system was inadequate and that she may not have the resources in her home environment to appropriately care for her needs. In this regard, a social work lecturer consultation had been recommended on several occassions, but patient apparently insisted on remaining in her home environment despite that there was thought that is may be less than optimal. The patient is here at the [facility] for a second opinion [...] dressing changes. On 04/20/18, she presented to [facility] in [place] as she noticed worsening drainage from her right leg along with pain, increased swelling, and warmth. White count was elevated at 21,000 with a left shift. X-rays of her right leg were done, which did not show any acute changes. She was admitted to [facility] for further management. She was seen by [...] were adjusted.?The patient was discharged to a snf facility on 04/26/18 in stable condition. Today, [...] with hypoxia (HCC) 09/30/2017 - Atrial fibrillation ([facility]) - CAD (coronary artery disease) Dr. Brenda [...] 10/08/2016 - COPD (chronic obstructive pulmonary disease) ([facility]) - Depressive disorder 12/29/2016 - Disruption of surgical wound 09/2015 Right tibia - Dorsalgia 12/29/2016 - Dyslipidemia - Gastric bypass status for obesity 12/29/2016 - Gastroesophageal reflux disease without esophagitis 10/08/2016 - HTN (hypertension) - Muscular weakness 12/29/2016 - Primary osteoarthritis involving multiple joints 12/29/2016 - Pure hypercholesterolemia - Rheumatoid arthritis ([facility]) 2007 - Sleep apnea - Stented coronary artery 12/29/2016 PAST SURGICAL HISTORY Procedure Laterality Date - CC CORONARY STENT 11/20/2012 KIMMY LAD - CC CORONARY STENT 12/20/2014 KIMMY, Cfx - SECTION HX - COLONOSCOPY 06/10/2017 [facility], Nonspecific cecal ulcer - GASTRIC BYPASS HX 1986 - HERNIA REPAIR HX 1987; 1989 - PAST SURGICAL HISTORY OF Right 09/2015 right tibia fracture ORIF - PAST SURGICAL HISTORY OF Right 01/20/2016 Removal of hardware, right tibia - TOTAL KNEE REPLACEMENT Right 2003 [facility] Gen. - TOTAL KNEE REPLACEMENT Left 2004 [facility] Gen. MEDICATIONS ergocalciferol, vitamin D2, [...] Rubor of Dependency: Negative (Y) Positive (N) [place] Examination: Comments: Measurements: Right Calf: 57 cm Right Ankle: 34.5 cm Left Calf: 52.6 cm Left Ankle: 34.5 cm Neuro: Alert AND oriented x3, PROCESS IMPROVEMENT ANALYST II-XII grossly intact, reflexes 2+ and symmetric, [...] No acute fracture or bony destruction. ? Automatic Grinder Operator: DWIGHT ? Transcribe Date/Time: Oct 14 2017 [...] No acute fracture or bony destruction. ? Automatic Grinder Operator: DWIGHT ? Transcribe Date/Time: Oct 14 2017 [...] and Edge attached to base Periwound Tissue: [place], dry and intact, No fluctuance, induration or [...] and Edge attached to base Periwound Tissue: [place], dry and intact, No fluctuance, induration or [...] -- Week 5 Wound Bed (Post-debridement): 100% [place] % of Healthy tissue: Undermining: No Tunneling: No Tendon/bone exposed: NO Wound Edge/Margins: Well-defined wound edges and Edge attached to base Periwound Tissue: [place], dry and intact, No fluctuance, induration or [...] initial assessment today Wound Bed (Post-debridement): 100% [place] % of Healthy tissue: Undermining: No Tunneling: [...] worsening symptoms. Luis Simons CNP Charge Capture: [id number] PROTIME W/INR Collected: 05/11/2018 Status: F Source: VALE FINGERSTICK 6:21 AM [facility] REPOSITORY TYPE CODE TESTS RESULT OUT OF REFERENCE UNITS RANGE LAB L9200.1001 11.9-14.4 SEC High PROTIME ISTAT 27.3 Result Comment: Reference Range 11.9 - 14.4 LAB L9200.2000 Normal INR ISTAT 2.40 Result Comment: Critical Value > 3.5 Performed By: #### [id number] #### [facility] Point of Care [address] [place] [address] PROGRESS Observed: 05/10/2018 Status: COMPLETED Source: ROUND TOP 11:02 AM [facility] REPOSITORY HNO ID: [id number] Author: Tiffanie (Rn) ELENA Humphrey Service: (none) Author Type: Registered [...] RN PROGRESS Observed: 05/10/2018 Status: COMPLETED Source: ROUND TOP 10:30 AM [facility] REPOSITORY HNO ID: [id number] Author: Luis Simons Service: (none) Author Type: Nurse Practitioner Type: Progress Notes Filed: 08/17/2018 5:26 AM Note Text: DATE OF VISIT: 05/10/2018 REASON FOR VISIT: Non-healing lower extremity wound. HISTORY OF PRESENT ILLNESS: Rosa Beltran is a 81 year old female who presents to the [facility] for further [...] followed by Dr. Jaskaran Chance at the [facility]. It was felt that her home support system was inadequate and that she may not have the resources in her home environment to appropriately care for her needs. In this regard, a social work lecturer consultation had been recommended on several occassions, but patient apparently insisted on remaining in her home environment despite that there was thought that is may be less than optimal. The patient is here at the [facility] for a second opinion [...] dressing changes. On 04/20/18, she presented to [facility] in [place] as she noticed worsening drainage from her right leg along with pain, increased swelling, and warmth. White count was elevated at 21,000 with a left shift. X-rays of her right leg were done, which did not show any acute changes. She was admitted to [facility] for further management. She was seen by [...] were adjusted.?The patient was discharged to a snf facility on 04/26/18 in stable condition. Today, [...] hypothyroidism - Acute respiratory failure with hypoxia ([facility]) 09/30/2017 - Atrial fibrillation ([facility]) - CAD (coronary artery disease) Dr. Brenda [...] 10/08/2016 - COPD (chronic obstructive pulmonary disease) ([facility]) - Depressive disorder 12/29/2016 - Disruption of surgical wound 09/2015 Right tibia - Dorsalgia 12/29/2016 - Dyslipidemia - Gastric bypass status for obesity 12/29/2016 - Gastroesophageal reflux disease without esophagitis 10/08/2016 - HTN (hypertension) - Muscular weakness 12/29/2016 - Primary osteoarthritis involving multiple joints 12/29/2016 - Pure hypercholesterolemia - Rheumatoid arthritis ([facility]) 2007 - Sleep apnea - Stented coronary artery 12/29/2016 PAST SURGICAL HISTORY Procedure Laterality Date - CC CORONARY STENT 11/20/2012 KIMMY LAD - CC CORONARY STENT 12/20/2014 KIMMY, Cfx - SECTION HX - COLONOSCOPY [facility]10[facility], Nonspecific cecal ulcer - GASTRIC BYPASS HX 1987 - HERNIA REPAIR HX 1988; 1990 - PAST SURGICAL HISTORY OF Right 09/2015 right tibia fracture ORIF - PAST SURGICAL HISTORY OF Right 01/20/2016 Removal of hardware, right tibia - TOTAL KNEE REPLACEMENT Right 2003 [facility] Gen. - TOTAL KNEE REPLACEMENT Left 2004 [facility] Gen. MEDICATIONS ergocalciferol, vitamin D2, [...] Rubor of Dependency: Negative (Y) Positive (N) [place] Examination: Comments: Measurements: Right Calf: 57 cm Right Ankle: 34.5 cm Left Calf: 52.6 cm Left Ankle: 34.5 cm Neuro: Alert AND oriented x3, PROCESS IMPROVEMENT ANALYST II-XII grossly intact, reflexes 2+ and symmetric, [...] No acute fracture or bony destruction. ? Automatic Grinder Operator: DWIGHT ? Transcribe Date/Time: Oct 14 2017 [...] No acute fracture or bony destruction. ? Automatic Grinder Operator: DWIGHT ? Transcribe Date/Time: Oct 14 2017 [...] and Edge attached to base Periwound Tissue: [place], dry and intact, No fluctuance, induration or [...] and Edge attached to base Periwound Tissue: [place], dry and intact, No fluctuance, induration or [...] -- Week 5 Wound Bed (Post-debridement): 100% [place] % of Healthy tissue: Undermining: No Tunneling: No Tendon/bone exposed: NO Wound Edge/Margins: Well-defined wound edges and Edge attached to base Periwound Tissue: [place], dry and intact, No fluctuance, induration or [...] initial assessment today Wound Bed (Post-debridement): 100% [place] % of Healthy tissue: Undermining: No Tunneling: [...] worsening symptoms. Luis Simons CNP Charge Capture: [id number]; [id number] (s7) CNOV Observed: 05/10/2018 Status: COMPLETED Source: ROUND TOP 10:30 AM CLINIC OTHER CAMPUS REPOSITORY Office Visit (PLWDMR) ROSA BELTRAN ([id number]) 1935 F Date Time Provider Department 05/10/18 10:30 AM LUIS SIMONS, (TESTING COORDINATOR) PLWDMR During your visit today, we recorded the following information about you: Temperature Pulse Respiration Blood pressure 98.5 degrees 75/minute 19/minute 130/70 Luis Simons APRN.CNP 08/17/2018 5:26 AM Addendum DATE OF VISIT: 05/10/2018 REASON FOR VISIT: Non-healing lower extremity wound. HISTORY OF PRESENT ILLNESS: Rosa Beltran is a 81 year old female who presents to the [facility] for further [...] followed by Dr. Jaskaran Chance at the [facility]. It was felt that her home support system was inadequate and that she may not have the resources in her home environment to appropriately care for her needs. In this regard, a social work lecturer consultation had been recommended on several occassions, but patient apparently insisted on remaining in her home environment despite that there was thought that is may be less than optimal. The patient is here at the [facility] for a second opinion [...] dressing changes. On 04/20/18, she presented to [facility] in [place] as she noticed worsening drainage from her right leg along with pain, increased swelling, and warmth. White count was elevated at 21,000 with a left shift. X-rays of her right leg were done, which did not show any acute changes. She was admitted to [facility] for further management. She was seen by [...] were adjusted.?The patient was discharged to a snf facility on 04/26/18 in stable condition. Today, [...] with hypoxia (HCC) 09/30/2017 - Atrial fibrillation ([facility]) - CAD (coronary artery disease) Dr. Brenda [...] 10/08/2016 - COPD (chronic obstructive pulmonary disease) ([facility]) - Depressive disorder 12/29/2016 - Disruption of [...] Cfx - SECTION HX - COLONOSCOPY 06/10/2017 [facility], Nonspecific cecal ulcer - GASTRIC BYPASS HX 1987 - HERNIA REPAIR HX 1988; 1989 - PAST SURGICAL HISTORY OF Right 09/2015 right tibia fracture ORIF - PAST SURGICAL HISTORY OF Right 01/20/2016 Removal of hardware, right tibia - TOTAL KNEE REPLACEMENT Right 2003 [facility] Gen. - TOTAL KNEE REPLACEMENT Left 2004 [facility] Gen. MEDICATIONS ergocalciferol, vitamin D2, [...] Rubor of Dependency: Negative (Y) Positive (N) [place] Examination: Comments: Measurements: Right Calf: 57 cm Right Ankle: 34.5 cm Left Calf: 52.6 cm Left Ankle: 34.5 cm Neuro: Alert AND oriented x3, PROCESS IMPROVEMENT ANALYST II-XII grossly intact, reflexes 2+ and symmetric, [...] No acute fracture or bony destruction. ? Automatic Grinder Operator: PSCB ? Transcribe Date/Time: Oct 14 2017 [...] No acute fracture or bony destruction. ? Automatic Grinder Operator: DWIGHT ? Transcribe Date/Time: Oct 14 2017 [...] and Edge attached to base Periwound Tissue: [place], dry and intact, No fluctuance, induration or [...] and Edge attached to base Periwound Tissue: [place], dry and intact, No fluctuance, induration or [...] -- Week 5 Wound Bed (Post-debridement): 100% [place] % of Healthy tissue: Undermining: No Tunneling: No Tendon/bone exposed: NO Wound Edge/Margins: Well-defined wound edges and Edge attached to base Periwound Tissue: [place], dry and intact, No fluctuance, induration or [...] initial assessment today Wound Bed (Post-debridement): 100% [place] % of Healthy tissue: Undermining: No Tunneling: [...] worsening symptoms. Luis Simons CNP Charge Capture: [id number]; [id number] (x5) Luis Simons APRN.CNP 08/17/2018 4:33 AM Signed A time out [...] intent to comply. Tiffanie Humphrey, RN, RN 05/23/2018 7:05 AM Signed UNIVERSAL [...] following changes to the Wound Center at [phone] or go to the Emergency Department: ? [...] requires a 45 minute visit Luis Simons CNP/omarl Referring Provider: CHINTAN DEMPSEY [[id number]] Allergies As of Date: 05/10/2018 (No Known [...] following changes to the Wound Center at [phone] or go to the Emergency Department: ? [...] requires a 45 minute visit Luis Simons CNP/omarl Visit Notes: >> Kayla Childs Ma TueMay [...] 05/23/18 PROCEDURE Observed: 05/10/2018 Status: COMPLETED Source: ROUND TOP 10:30 AM [facility] OTHER CAMPUS REPOSITORY HNO ID: [id number] Author: Luis Lyles (Jacker Feeder) Carla Service: (none) Author Type: Nurse Practitioner [...] Status: F Source: VALE (DIPSTICK) 11:30 PM [facility] REPOSITORY Order Comment: How was Urine Obtained? [...] ESTERASE Negative Performed By: #### L400.2010 #### [facility] [address] [facility] [place], [address] Observed: 05/09/2018 Status: F Source: [facility] CULTURE, URINE 11:30 PM [facility] REPOSITORY Urine Culture Culture exhibits no growth. Performed By: #### M100.0650 #### [facility] [address] [place], [address] CBC W/DIFF, AUTOMATED Collected: 05/09/2018 Status: F Source: [facility] 1:25 PM [facility] REPOSITORY TYPE CODE TESTS RESULT OUT OF [...] Lymph 1.37 Performed By: #### L100.0100 #### [facility] [address] [place], [address] COMPREHENSIVE METABOLIC Collected: 05/09/2018 Status: F Source: [facility] 1:25 PM [facility] REPOSITORY TYPE CODE TESTS RESULT OUT OF [...] GAP 6 Performed By: #### L500.4050 #### [facility] [address] [place] [address], [id number] PROTIME W/INR Collected: 05/09/2018 Status: F Source: VALE FINGERSTICK 5:53 AM [facility] REPOSITORY TYPE CODE TESTS RESULT OUT OF REFERENCE UNITS RANGE LAB L9200.1001 11.9-14.4 SEC High PROTIME ISTAT 26.7 Result Comment: Reference Range 11.9 - 14.4 LAB L9200.2000 Normal INR ISTAT 2.30 Result Comment: Critical Value > 3.5 Performed By: #### [id number] #### [facility] Point of Care [address] [place] [address] [id number] PROTIME W/INR Collected: 05/05/2018 Status: F Source: VALE [place]INGER[place]ICK 6:22 AM [facility] REPOSITORY TYPE CODE TESTS RESULT OUT OF REFERENCE UNITS RANGE LAB L9200.1001 11.9-14.4 SEC High PROTIME ISTAT 22.0 Result Comment: Reference Range 11.9 - 14.4 LAB L9200.2000 Normal INR ISTAT 1.90 Result Comment: Critical Value > 3.5 Performed By: #### [id number] #### [facility] Point of Care [address], [place] [id number] PROTIME W/INR Collected: 05/04/2018 Status: F Source: [facility] FINGERSTICK 5:27 AM [facility] REPOSITORY TYPE CODE TESTS RESULT OUT OF REFERENCE UNITS RANGE LAB L9200.1001 11.9-14.4 SEC High PROTIME ISTAT 18.3 Result Comment: Reference Range 11.9 - 14.4 LAB L9200.2000 Normal INR ISTAT 1.60 Result Comment: Critical Value > 3.5 Performed By: #### [id number] #### [facility] Point of Care [address] [place] [address] PROTIME W/INR Collected: 05/03/2018 Status: F Source: VALE FINGER[place] 5:48 AM [facility] REPOSITORY TYPE CODE TESTS RESULT OUT OF REFERENCE UNITS RANGE LAB L9200.1001 11.9-14.4 SEC High PROTIME ISTAT 17.8 Result Comment: Reference Range 11.9 - 14.4 LAB L9200.2000 Normal INR ISTAT 1.50 Result Comment: Critical Value > 3.5 Performed By: #### [id number] #### [facility] Point of Care [address] [place], [place] [address]. [place] [address] PROTHROMBIN TIME W/INR Collected: 05/02/2018 Status: F Source: VALE 5:42 AM [facility] REPOSITORY Order Comment: ROOM 303 TYPE CODE TESTS RESULT OUT OF RANGE REFERENCE UNITS LAB L300.4150 11.7-14.9 SECONDS High PROTIME 16.9 LAB L300.4200 Normal INR 1.4 Performed By: #### L300.3900 #### [facility] [facility] [address] [place] [address]. [place], [address] PROTIME W/INR Collected: 05/01/2018 Status: F Source: VALE FINGERSTICK 6:52 AM [facility] REPOSITORY TYPE CODE TESTS RESULT OUT OF REFERENCE UNITS RANGE LAB L9200.1001 11.9-14.4 SEC High PROTIME ISTAT 16.5 Result Comment: Reference Range 11.9 - 14.4 LAB L9200.2000 Normal INR ISTAT 1.40 Result Comment: Critical Value > 3.5 Performed By: #### L9200.0000 #### [facility] Point of Care [address] [address] PROTHROMBIN TIME W/INR Collected: 04/29/2018 Status: F Source: VALE 7:35 AM [facility] REPOSITORY TYPE CODE TESTS RESULT OUT OF RANGE REFERENCE UNITS LAB L300.4150 11.7-14.9 SECONDS High PROTIME 17.1 LAB L300.4200 Normal INR 1.4 Performed By: #### L300.3900 #### [facility] [address] [place], [address] PROTHROMBIN TIME W/INR Collected: 04/28/2018 Status: F Source: VALE 6:12 AM [facility] REPOSITORY TYPE CODE TESTS RESULT OUT OF RANGE REFERENCE UNITS LAB L300.4150 11.7-14.9 SECONDS High PROTIME 18.5 LAB L300.4200 Normal INR 1.5 Performed By: #### L300.3900 #### [facility] [address] [place], [address] PROTHROMBIN TIME W/INR Collected: 04/27/2018 Status: F Source: VALE 6:40 AM [facility] REPOSITORY Order Comment: ROOM 303 TYPE CODE TESTS RESULT OUT OF RANGE REFERENCE UNITS LAB L300.4150 11.7-14.9 SECONDS High PROTIME 20.9 LAB L300.4200 Normal INR 1.8 Performed By: #### L300.3900 #### [facility] [address] [place], [address] CONSULT PROG Observed: 04/26/2018 Status: COMPLETED Source: ROUND TOP 12:33 PM CLINIC OTHER CAMPUS REPOSITORY O ID: [id number] Author: Heather Lynn Service: Infectious Disease Author [...] NURSING PROG Observed: 04/26/2018 Status: COMPLETED Source: ROUND TOP 10:47 AM CLINIC OTHER CAMPUS REPOSITORY HNO ID: [id number] Author: Yaneth (Rn) ELENA Roman Service: (none) Author Type: Registered Nurse Type: Nursing Progress Note Filed: 04/26/2018 12:52 PM Note Text: Nursing Progress Note Patient Name: Rosa Beltran Patient Location: [facility]7/FI-[id number] Daily Note: 0700: Assumed care of patient. Patient resting in bed w/eyes closed. No visible s/o pain or distress. Utilizing 2L n/c. IV fluids infusing w/o complication. Call banda in reach, bed down, safety maintained. 1230: Patient discharged to [facility] in stable condition. Left via wheelchair w/[facility]. Discharge paperwork and all personal belongings w/patient to facility. Report called to Keira. 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 Patient to use [facility] Bedside Delivery - N/A 2. If fax, patient would like us to fax prescriptions to Pharmacy of choice a. Pharmacy: b. Location: c. Phone: 3. Insurance card on file - N/A 4. Credit card for payment - N/A Patient d/c'ing to SNF. CASE MANAGEM Observed: 04/26/2018 Status: COMPLETED Source: ROUND TOP 9:53 AM [facility] REPOSITORY HNO ID: [id number] Author: Yaneth Jimenez (Sw) Service: Care Management Author Type: National Coverage Specialist Type: Care Mgt Progress Note Filed: 04/26/2018 9:58 AM Note Text: CARE MANAGEMENT DISCHARGE NOTE SERVICE DATE: 04/26/2018 SERVICE TIME: 9:53 AM LOS: 6 days Admission Date: 04/20/2018 DISCHARGE ARRANGEMENT (list agency and phone number) [facility] facility Provider: [facility] CAREGIVER ASSESSMENT: Caregiver is ready, willing and able to meet the patient's needs as recommended by the inter-professional team? Yes Patient's transition needs and plan for meeting these needs: Pt d/c to SNF where her needs will be met. Does the patient have an acute stroke diagnosis, or has the patient had a stroke during this admission? No HANDOFF COMMUNICATION: Bill Distributor: Maritza Howe Primary Care Physician: Mani Newman TRANSPORTATION ARRANGEMENTS: Mode of Transportation: [employer] Agency and Phone #: [facility] ( [facility] ) [phone] / [phone]. Date of Trip: 04/26/2018 Type of Service: Wheelchair Is Patient Medicaid Pending: No Discussion of financial coverage occurred with Patient . Loss Prevention Supervisor Location: [address] [place] [address] Destination: [facility] Financial Care Management Responsibility: None Estimated Charge: n/a Approving Belt Polisher: n/a ADDITIONAL CONTACT RESOURCES: n/a D/c orders received for pt to d/c to SNF. Pt has been accepted by [facility]. Sw met with pt and her dtr in law bedside to discuss d/c plan. Pt reluctantly agreeable to SNF and requested wheelchair transport. [facility] to transport at 1145am today. IM letter explained and copy given to pt. Pt agreeable with d/c. No additional identified skilled needs nor questions at this time. Summary of care sent to PCC and PCP via [employer]. SIGNATURE: FRANCI Burns LSW PATIENT NAME: Rosa Beltran DATE: April 26, 2018 TIME: 9:53 AM PAGER/CONTACT #: [phone] CNDS Observed: 04/26/2018 Status: COMPLETED Source: ROUND TOP 9:35 AM CLINIC OTHER CAMPUS REPOSITORY O ID: [id number] Author: Khai Edgar MD Service: Hospital Medicine [...] Team: Attending Provider: Khai Edgar MD Physician Risk Investigator: Justin Dangelo (Pa) Consulting: Heather Lynn Consulting: [...] for the wound and are sent to snf facility for compression dressing to be applied [...] No pending results Discharge Disposition Discharge Disposition: Care Home Facility - Less than 30 Days Activity [...] Podiatry ID in [place] Follow up in [facility] ?wound is so much better with just debridmeent and wound care Recommended [facility] daily wound care and compression Follow Up Appointments Follow-Up Appointment When: In 1 week Patient/Parents to call for appointment?: Yes Chintan Dempsey DPM [phone] [address] [facility] [address] PCP Requested Referral Additional Provider to Provider Information: Reason for Admission/Observation: Chronic venous stasis ulcer with the acute superimposed cellulitis ? HOSPITAL DAY ZERO: 04/20/2018 ? Presentation: 82 Y F with PMHx of venous stasis ulcer RLE, CAD s/p PCI, AF on coumadin, Pulm HTN,?HTN, HLD, BEBA, RA, hypothyroid??who is transferred from [facility] with chronic RLE wounds with suspected acute cellulitis with elevated wbc. She was admitted last month, seen by ID, podiatry, had debridement in pt and as out pt 2 weeks ago. She does have [facility] who noticed worsening signs of infection today so sent her to ED. ? Consultants: Dr. Roselyn Lynn ? Disposition: [facility] facility Hospital course: The patient was admitted [...] Discharge tomorrow and hopefully patient will choose snf facility on oral antibiotics B Chronic atrial [...] None FOLLOW-UP APPOINTMENTS ALREADY SCHEDULED WITH A [facility] PROVIDER: Future Appointments Date Time Provider Department Center 04/28/2018 11:30 AM Luis Simons [facility] 06/08/2018 11:25 AM Ty ERICKSON [facility] VALE 06/12/2018 2:20 PM Mani GARCIA [facility] DISCHARGE MEDICATION: Current Discharge Medication List START [...] AM CBC Collected: 04/26/2018 Status: F Source: ROUND TOP 5:48 AM [facility] OTHER CAMPUS REPOSITORY TYPE CODE TESTS RESULT [...] 10.3 Performed By: #### CBC, CMP #### [facility] [address] [place] [address] COMP METABOLIC PANEL Collected: 04/26/2018 Status: F Source: ROUND TOP 5:48 AM [facility] OTHER [place] REPOSITORY TYPE CODE TESTS RESULT OUT OF REFERENCE UNITS RANGE LAB TP 6.3-8.0 g/dL Protein, Total 7.3 LAB ALB 3.9-4.9 g/dL Low Albumin 2.8 LAB CA 8.5-10.2 mg/dL Calcium, Total 8.5 LAB TBIL 0.2-1.3 mg/dL Bilirubin, Total 0.3 LAB ALKP 32-117 U/L Alkaline Phosphatase 66 LAB AST 13-35 U/L AST 25 LAB GLU 74-99 mg/dL Glucose 94 Result Comment: The [place] [employer] Association (ADA) provides guidance for cutoff [...] Standards of Medical Care in Diabetes 2016, [place] [employer]. Diabetes Care. 2016.39(Suppl 1). LAB [...] GFR. Performed By: #### CBC, CMP #### [facility] [address] [place] [address] PROTIME Collected: 04/26/2018 Status: F Source: ROUND TOP 5:48 AM [facility] REPOSITORY TYPE CODE TESTS RESULT OUT OF RANGE REFERENCE UNITS LAB PSEC 9.7-13.0 sec High PT Sec 21.7 LAB INR 0.9-1.3 High PT INR 2.2 Result Comment: Vitamin K Antagonist (VKA) Therapeutic Range: INR 2 to 3 (Target INR of 2.5) Note: For patients treated with VKA drugs, such as warfarin, the [place] [employer] 2012 Guideline recommends [...] Chest 2012, 141:7S-47S Genevieve RA, et al. [facility] 2017, 70: 252-289 Performed By: #### PT #### [facility] [address] [place] [address] PT ED Observed: 04/25/2018 Status: COMPLETED Source: ROUND TOP 2:55 PM [facility] REPOSITORY HNO ID: [id number] Author: Tia Feldman (Pharmacist) Service: Pharmacy Author [...] on warfarin for 15 years. Abdulkadir Le (Reimbursement Auditor) Preceptor Addendum: This case has been reviewed and discussed with the pharmacy teacher. I agree with the assessment/plan described by the student. Changes and additions to the details in the note are indicated by italics and . TIA FELDMAN, HERRERA NUTRITION Observed: 04/25/2018 Status: COMPLETED Source: ROUND TOP 2:12 PM CLINIC OTHER [place] REPOSITORY HNO ID: [id number] Author: Radha Caceres Service: Nutrition Therapy Author [...] min 2 units SIGNATURE: Radha Caceres RD, LD PATIENT NAME: Rosa Beltran DATE: April 25, 2018 TIME: 2:12 PM PAGER: PROGRESS Observed: 04/25/2018 Status: COMPLETED Source: ROUND TOP 1:57 PM [facility] REPOSITORY HNO ID: [id number] Author: Khai Edgar MD Service: Hospital Medicine Author Type: Physician Type: Progress Notes Filed: 04/25/2018 1:57 PM Note Text: SERVICE DATE: 04/25/2018 SERVICE TIME: 1:57 PM HOSPITAL MEDICINE PROGRESS NOTE NIGHT AND WEEKEND COVERAGE: Nights: Please contact pager [phone]. Reason for Admission/Observation: Chronic venous stasis ulcer with the acute superimposed cellulitis HOSPITAL DAY ZERO: 04/20/2018 Presentation: 82 Y F with PMHx of venous stasis ulcer RLE, CAD s/p PCI, AF on coumadin, Pulm HTN,?HTN, HLD, BEBA, RA, hypothyroid??who is transferred from [place] ED with chronic RLE wounds with suspected acute cellulitis with elevated wbc. She was admitted last month, seen by ID, podiatry, had debridement in pt and as out pt 2 weeks ago. She does have [facility] who noticed worsening signs of infection today so sent her to ED. Consultants: Dr. Roselyn Lynn Disposition: [facility] facility SUBJECTIVE Interval HPI:No chest pain or [...] Discharge tomorrow and hopefully patient will choose snf facility on oral antibiotics B Chronic atrial [...] 04/20/182048 -- 04/20/182099 vte current anticoag therapy ([place], [place]) 04/20/182044 vte non-pharmacologic prophylaxis - none indicated ([place], [place]) VTE Prophylaxis: VTE prophylaxis appropriate Plan of care discussed with: Patient, Case Management and RN SIGNATURE: Khai Edgar MD PATIENT NAME: Rosa Beltran DATE: April 25, 2018 TIME: 1:57 PM PAGER/CONTACT #: CONSULT PROG Observed: 04/25/2018 Status: COMPLETED Source: ROUND TOP 1:41 PM CLINIC OTHER CAMPUS REPOSITORY O ID: [id number] Author: Heather Lynn Service: Infectious Disease Author [...] Pager: PROTIME Collected: 04/25/2018 Status: F Source: ROUND TOP 12:51 PM CLINIC OTHER CAMPUS REPOSITORY TYPE CODE TESTS RESULT OUT OF RANGE REFERENCE UNITS LAB PSEC 9.7-13.0 sec High PT Sec 24.9 LAB INR 0.9-1.3 High PT INR 2.5 Result Comment: Vitamin K Antagonist (VKA) Therapeutic Range: INR 2 to 3 (Target INR of 2.5) Note: For patients treated with VKA drugs, such as warfarin, the [place] [employer]icians 2012 Guideline recommends [...] Chest 2012, 141:7S-47S Genevieve RA, et al. [facility] 2017, 70: 252-289 Performed By: #### PT #### [facility] [address] [facility] [phone] CONSULT PROG Observed: 04/25/2018 Status: COMPLETED Source: ROUND TOP 9:02 AM CLINIC OTHER CAMPUS REPOSITORY HNO ID: [id number] Author: Chintan Dempsey DPM Service: Podiatry Author [...] Podiatry ID in [place] Follow up in [facility] ?wound is so much better with just debridmeent and wound care Recommended SNF daily wound care and compression If she allows Chintan Dempsey DPM 11:55 AM April 25, 2018 SIGNATURE: Jessica Yeager DPM PATIENT NAME: Rosa Beltran DATE: April 25, 2018 TIME: 9:03 AM PAGER: COMP METABOLIC PANEL Collected: 04/25/2018 Status: F Source: ROUND TOP 6:43 AM CLINIC OTHER CAMPUS REPOSITORY TYPE [...] 74-99 mg/dL Glucose 88 Result Comment: The [place] Diabetes Association (ADA) provides guidance for cutoff [...] Standards of Medical Care in Diabetes 2016, [place] [employer]. Diabetes Care. 2016.39(Suppl 1). LAB [...] has been calibrated to be traceable to IDOR. An eGFR <60 mL/min/1.73m2 for >3 months is consistent with chronic kidney disease. Refer to KDOQI guidelines for clinical interpretation. In patients with unstable renal function, e.g. those with acute kidney injury, the eGFR may not accurately reflect actual GFR. Performed By: #### CMP, CBC #### [facility] [address] [place] [address] CBC Collected: 04/25/2018 Status: F Source: ROUND TOP 6:43 AM [facility] OTHER [place] REPOSITORY TYPE CODE TESTS RESULT OUT OF [...] 10.4 Performed By: #### CMP, CBC #### [facility] [address] [place] [address] PROGRESS Observed: 04/24/2018 Status: COMPLETED Source: ROUND TOP 12:42 PM CLINIC OTHER CAMPUS REPOSITORY HNO ID: [id number] Author: Khai Edgar MD Service: Hospital Medicine Author Type: Physician Type: Progress Notes Filed: 04/24/2018 12:44 PM Note Text: SERVICE DATE: 04/24/2018 SERVICE TIME: 12:42 PM HOSPITAL MEDICINE PROGRESS NOTE NIGHT AND WEEKEND COVERAGE: Nights: Please contact pager [phone]. Reason for Admission/Observation: Chronic venous stasis ulcer with the acute superimposed cellulitis HOSPITAL DAY ZERO: 04/20/2018 Presentation: 82 Y F with PMHx of venous stasis ulcer RLE, CAD s/p PCI, AF on coumadin, Pulm HTN,?HTN, HLD, BEBA, RA, hypothyroid??who is transferred from [place] ED with chronic RLE wounds with suspected acute cellulitis with elevated wbc. She was admitted last month, seen by ID, podiatry, had debridement in pt and as out pt 2 weeks ago. She does have [facility] who noticed worsening signs of infection [...] calcaneal fracture on her x[facility]rays done at [facility]. ? [facility] cx data Local wound care [...] CONSULT PROG Observed: 04/24/2018 Status: COMPLETED Source: ROUND TOP 11:48 AM CLINIC OTHER CAMPUS REPOSITORY HNO ID: [id number] Author: Jessica Yeager Service: Podiatry Author Type: [...] CONSULT PROG Observed: 04/24/2018 Status: COMPLETED Source: ROUND TOP 11:29 AM CLINIC OTHER CAMPUS REPOSITORY HNO ID: [id number] Author: Heather Lynn Service: Infectious Disease Author [...] calcaneal fracture on her x-rays done at [facility]. PLAN: Keep zosyn D/c plan on po [...] Pager: CBC Collected: 04/24/2018 Status: F Source: ROUND TOP 5:55 AM CLINIC OTHER CAMPUS REPOSITORY TYPE [...] 10.4 Performed By: #### CBC, CMP #### [facility] [address] [facility] [phone] COMP METABOLIC PANEL Collected: 04/24/2018 Status: F Source: ROUND TOP 5:55 AM CLINIC OTHER CAMPUS REPOSITORY TYPE [...] 74-99 mg/dL Glucose 96 Result Comment: The [place] [employer] (ADA) provides guidance for cutoff [...] Standards of Medical Care in Diabetes 2016, [place] [employer]. Diabetes Care. 2016.39(Suppl 1). LAB [...] GFR. Performed By: #### CBC, CMP #### [facility] [address] [place] [address] PROTIME Collected: 04/24/2018 Status: F Source: ROUND TOP 5:55 AM [facility] REPOSITORY TYPE CODE TESTS RESULT OUT OF RANGE REFERENCE UNITS LAB PSEC 9.7-13.0 sec High PT Sec 28.7 LAB INR 0.9-1.3 High PT INR 2.9 Result Comment: Vitamin K Antagonist (VKA) Therapeutic Range: INR 2 to 3 (Target INR of 2.5) Note: For patients treated with VKA drugs, such as warfarin, the [place] [employer]icians 2012 Guideline recommends [...] Chest 2012, 141:7S-47S Genevieve RA, et al. [facility] 2017, 70: 252-289 Performed By: #### PT #### [facility] [address] [place] [address] NURSING PROG Observed: 04/23/2018 Status: COMPLETED Source: ROUND TOP 10:03 PM [facility] REPOSITORY HNO ID: [id number] Author: Timothy Hammer) ELENA Esposito Service: Nursing Author Type: Registered Nurse Type: Nursing Progress Note Filed: 04/23/2018 10:04 PM Note Text: Nursing Progress Note Patient Name: Rosa Beltran Patient Location: [id number] Daily Note: 2204 Dr. Lee called to clarify beta louann order with current BP/HR, LIP ordered to hold HS dose. This note was completed by: Timothy Esposito RN CONSULT PROG Observed: 04/23/2018 Status: COMPLETED Source: ROUND TOP 7:14 PM CLINIC OTHER CAMPUS REPOSITORY HNO ID: [id number] Author: Heather Lynn Service: Infectious Disease Author [...] calcaneal fracture on her x-rays done at [facility]. PLAN: Keep zosyn Follow final cx data [...] NURSING PROG Observed: 04/23/2018 Status: COMPLETED Source: ROUND TOP 3:36 PM CLINIC OTHER CAMPUS REPOSITORY HNO ID: [id number] Author: Sydni (Rn) ELENA Harper Service: Nursing Author Type: Registered Nurse Type: Nursing Progress Note Filed: 04/23/2018 3:40 PM Note Text: Nursing Progress Note Patient Name: Rosa Beltran Patient Location: [place] [id number] Daily Note: 1537: Call placed to Dr. Edgar in regard to pt's low blood pressure. Verbal orders to hold evening metoprolol. This note was completed by: Sydni Harper RN PROGRESS Observed: 04/23/2018 Status: COMPLETED Source: ROUND TOP 2:38 PM [facility] OTHER CAMPUS REPOSITORY HNO ID: [id number] Author: Khai Edgar MD Service: Hospital Medicine Author Type: Physician Type: Progress Notes Filed: 04/23/2018 2:39 PM Note Text: SERVICE DATE: 04/23/2018 SERVICE TIME: 2:38 PM HOSPITAL MEDICINE PROGRESS NOTE NIGHT AND WEEKEND COVERAGE: Nights: Please contact pager [phone]. Reason for Admission/Observation: Chronic venous stasis ulcer with the acute superimposed cellulitis HOSPITAL DAY ZERO: 04/20/2018 Presentation: 82 Y F with PMHx of venous stasis ulcer RLE, CAD s/p PCI, AF on coumadin, Pulm HTN,?HTN, HLD, BEBA, RA, hypothyroid??who is transferred from [place] ED with chronic RLE wounds with suspected acute cellulitis with elevated wbc. She was admitted last month, seen by ID, podiatry, had debridement in pt and as out pt 2 weeks ago. She does have [facility] who noticed worsening signs of infection [...] calcaneal fracture on her x-rays done at [facility]. ? PLAN: Keep zosyn Follow cx data [...] Medications Start Dose Route Frequency Ordered Stop 04/20/18 2100 warfarin 3 mg tab(s) (COUMADIN) 3 mg ORAL DAILY 04/20/182048 -- 04/20/182099 aspirin, enteric coated 81 mg tab(s) (ASPIRIN, ENTERIC COATED) 81 mg ORAL DAILY 04/20/182048 -- 04/20/18 2100 vte current anticoag therapy ([place]) 04/20/182044 vte non-pharmacologic prophylaxis - none indicated ([place]) VTE Prophylaxis: VTE prophylaxis appropriate Plan of care discussed with: Patient - RN not available SIGNATURE: Khai Edgar MD PATIENT NAME: oRsa Beltran DATE: April 23, 2018 TIME: 2:38 PM PAGER/CONTACT #: CONSULT PROG Observed: 04/23/2018 Status: COMPLETED Source: ROUND TOP 8:45 AM CLINIC OTHER CAMPUS REPOSITORY HNO ID: [id number] Author: Ty Martinez Service: Podiatry Author Type: [...] PAGER: CBC Collected: 04/23/2018 Status: F Source: ROUND TOP 4:26 AM CLINIC OTHER CAMPUS REPOSITORY TYPE CODE [...] 10.8 Performed By: #### CBC, CMP #### [facility] [address] [facility] [phone] COMP METABOLIC PANEL Collected: 04/23/2018 Status: F Source: ROUND TOP 4:26 AM CLINIC OTHER CAMPUS REPOSITORY TYPE CODE [...] 74-99 mg/dL Glucose 91 Result Comment: The [place] Diabetes Association (ADA) provides guidance for cutoff [...] Standards of Medical Care in Diabetes 2016, [place] [employer]. Diabetes Care. 2016.39(Suppl 1). LAB [...] GFR. Performed By: #### CBC, CMP #### [facility] [address] [place] [address] PROTIME Collected: 04/23/2018 Status: F Source: ROUND TOP 4:26 AM [facility] OTHER [place] REPOSITORY TYPE CODE TESTS RESULT OUT OF RANGE REFERENCE UNITS LAB PSEC 9.7-13.0 sec High PT Sec 26.1 LAB INR 0.9-1.3 High PT INR 2.6 Result Comment: Vitamin K Antagonist (VKA) Therapeutic Range: INR 2 to 3 (Target INR of 2.5) Note: For patients treated with VKA drugs, such as warfarin, the [place] [employer] 2012 Guideline recommends [...] Chest 2012, 141:7S-47S Genevieve RA, et al. [facility] 2017, 70: 252-289 Performed By: #### PT #### [facility] [address] [facility] [phone] NURSING PROG Observed: 04/22/2018 Status: COMPLETED Source: ROUND TOP 9:10 PM CLINIC OTHER [place] REPOSITORY HNO ID: [id number] Author: Timothy (Rn) ELENA Esposito Service: Nursing Author Type: Registered Nurse Type: Nursing Progress Note Filed: 04/22/2018 10:50 PM Note Text: Nursing Progress Note Patient Name: Rosa Beltran Patient Location: [facility]0217/[id number] Daily Note: 0 LIP paged r/t medication order clarification: Lopressor. 2249 LIP paged r/t need of O2 order and pain med parameter clarification. This note was completed by: Timothy Esposito RN CONSULT PROG Observed: 04/22/2018 Status: COMPLETED Source: ROUND TOP 6:54 PM [facility] REPOSITORY HNO ID: [id number] Author: Heather Lynn Service: Infectious Disease Author [...] calcaneal fracture on her x-rays done at [facility]. PLAN: Keep zosyn Follow cx data Will [...] reviewed Recent Labs 04/22/18 0527 04/21/18 0424 04/20/18211604/20/182111 WBC 9.32 14.27* -- -- HB 10.7* [...] NURSING PROG Observed: 04/22/2018 Status: COMPLETED Source: ROUND TOP 2:35 PM [facility] REPOSITORY HNO ID: [id number] Author: Rocio Lynne (Rn) ELENA Contreras Service: (none) Author Type: Registered Nurse Type: Nursing Progress Note Filed: 04/22/2018 2:37 PM Note Text: Nursing Progress Note Patient Name: Rosa Beltran Patient Location: [place] [id number] Daily Note: 1315: Podiatry resident, Ty Martinez, at bedside to perform dressing change. Patient encouraged to wear boots to offload heels but refuses despite continuing education. Patient agreeable to pillow, but will not allow heels to be floated. This note was completed by: Rocio Contreras RN PROGRESS Observed: 04/22/2018 Status: COMPLETED Source: ROUND TOP 1:46 PM CLINIC OTHER CAMPUS REPOSITORY HNO ID: [id number] Author: Marvin Stevenson) Franny Service: General Internal Medicine Author Type: Physician Type: Progress Notes Filed: 04/22/2018 1:48 PM Note Text: DEPARTMENT OF HOSPITAL MEDICINE PROGRESS NOTE Patient Name: Rosa Beltran SERVICE DATE AND TIME: April 22, 2018 1:47 PM Hospital Medicine/Primary Attending: Marvin Blanton MD NIGHT AND WEEKEND COVERAGE: Days: [phone], please page me or text for patient issues my pager cell # [phone]. Evening and Nights: [phone], please page [phone] ASSESSMENT AND PLAN Venous stasis ulcer of [...] CONSULT PROG Observed: 04/22/2018 Status: COMPLETED Source: ROUND TOP 1:17 PM CLINIC OTHER CAMPUS REPOSITORY HNO ID: [id number] Author: Chintan Dempsey DPM Service: Podiatry Author [...] PAGER: CBC Collected: 04/22/2018 Status: F Source: ROUND TOP 5:27 AM CLINIC OTHER CAMPUS REPOSITORY TYPE [...] 11.0 Performed By: #### CBC, CMP #### [facility] [address] [facility] [phone] COMP METABOLIC PANEL Collected: 04/22/2018 Status: F Source: ROUND TOP 5:27 AM CLINIC OTHER CAMPUS REPOSITORY TYPE [...] 74-99 mg/dL Glucose 89 Result Comment: The [place] Diabetes Association (ADA) provides guidance for cutoff [...] Standards of Medical Care in Diabetes 2016, [place] Diabetes Association. Diabetes Care. 2016.39(Suppl 1). LAB [...] GFR. Performed By: #### CBC, CMP #### [facility] [address] [facility] [phone] PROTIME Collected: 04/22/2018 Status: F Source: ROUND TOP 5:27 AM CLINIC OTHER CAMPUS REPOSITORY TYPE CODE TESTS RESULT OUT OF RANGE REFERENCE UNITS LAB PSEC 9.7-13.0 sec High PT Sec 22.0 LAB INR 0.9-1.3 High PT INR 2.2 Result Comment: Vitamin K Antagonist (VKA) Therapeutic Range: INR 2 to 3 (Target INR of 2.5) Note: For patients treated with VKA drugs, such as warfarin, the [place] [employer]icians 2012 Guideline recommends [...] Chest 2012, 141:7S-47S Genevieve RA, et al. [facility] 2017, 70: 252-289 Performed By: #### PT #### [facility] [address] [place] [address] MRI LOWER LEG WO/W Observed: 04/21/2018 Status: F Source: ROUND TOP IVCON RT 4:50 PM CLINIC OTHER CAMPUS REPOSITORY * * *Final Report* * * DATE OF EXAM: Apr 21 2018 4:50PM [facility] 0227 - MRI LOWER LEG WO/W [...] a better study to evaluate for osteomyelitis. Automatic Grinder Operator: PSCB Transcribe Date/Time: Apr 21 2018 5:12P Dictated by : BENNIE VELASQUEZ MD This examination was interpreted and the report reviewed and electronically signed by: BENNIE VELASQUEZ MD on Apr 21 2018 5:16PM EST [id number] NURSING PROG Observed: 04/21/2018 Status: COMPLETED Source: ROUND TOP 2:43 PM [facility] OTHER CAMPUS REPOSITORY HNO ID: [id number] Author: Dorene (Rn) ELENA Billy Service: Nursing Author Type: Registered Nurse Type: Nursing Progress Note Filed: 04/21/2018 5:25 PM Note Text: Nursing Progress Note Patient Name: Rosa Beltran Patient Location: [id number] Daily Note :1000 podiatry at bedside wound culture obtained and dressings changed bilateral legs at this time. 1430 to mri via bed with transport 1705 returns from mri via bed with o2., telemetry reapplied This note was completed by: Dorene Billy RN XR TIBIA FIBULA 2V Observed: 04/21/2018 Status: F Source: ROUND TOP AP/LAT RT 1:50 PM CLINIC OTHER CAMPUS [...] as discussed similar to the previous study Automatic Grinder Operator: DWIGHT Transcribe Date/Time: Apr 21 2018 4:30P Dictated by : HAO YORK DO This examination was interpreted and the report reviewed and electronically signed by: HAO YORK DO on Apr 21 2018 4:32PM EST [id number] PROGRESS Observed: 04/21/2018 Status: COMPLETED Source: ROUND TOP 1:42 PM [facility] REPOSITORY HNO ID: [id number] Author: Alisa Beltre (Pharmacist) Service: Pharmacy Author [...] patient's care. Please contact pharmacy if questions. Alisa Beltre, Pharmacist PLAN OF CARE Observed: 04/21/2018 Status: COMPLETED Source: ROUND TOP 1:34 PM [facility] REPOSITORY HNO ID: [id number] Author: Heather Lynn Service: Infectious Disease Author Type: Physician Type: Plan of Care Filed: 04/21/2018 1:34 PM Note Text: Consult Dictated. Please call with questions. Will follow with you. Thank you. Heather Lynn MD Pager: [phone] Date: 04/21/2018 Time: 1:34 PM PROGRESS Observed: 04/21/2018 Status: COMPLETED Source: ROUND TOP 1:16 PM [facility] REPOSITORY HNO ID: [id number] Author: Mravin Blanton Service: General Internal Medicine Author Type: Physician Type: Progress Notes Filed: 04/21/2018 1:18 PM Note Text: DEPARTMENT OF HOSPITAL MEDICINE PROGRESS NOTE Patient Name: Rosa Beltran SERVICE DATE AND TIME: April 21, 2018 1:16 PM Hospital Medicine/Primary Attending: Marvin Blanton MD NIGHT AND WEEKEND COVERAGE: Days: [phone], please page me or text for patient issues my pager cell # [phone]. Evening and Nights: [phone], please page [phone] ASSESSMENT AND PLAN Active Hospital Problems Diagnosis [...] ALLIED HEALTH Observed: 04/21/2018 Status: COMPLETED Source: ROUND TOP 11:28 AM [facility] OTHER [place] REPOSITORY HNO ID: [id number] Author: Svetlana Gonzalez RN Service: Ostomy Author [...] MGT INIT Observed: 04/21/2018 Status: COMPLETED Source: [facility] 11:04 AM [facility] OTHER [place] REPOSITORY HNO ID: [id number] Author: Linda Herring ([place]) Service: Care Management Author Type: National Coverage Specialist Type: Care Mgt Initial Assessment Filed: 04/21/2018 [...] Order;Other: See Comment;Wound Care (medical clearance) 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 No Advance Directive: Current Advance Directive: Health Care Power of [employer] (pt states her son recently , she states her dtr in law is now her POA. Pt states paperwork is at home and declines to complete or update POA forms at this time) In Chart: No Power Generation Technician Assisted with AD Completion: No Health Literacy: [...] or Home Care? Home Health Care Agency: [facility]; ; Active. Equipment Prior to Admission: Oxygen 3 liters per minute Walker Wound Care supplies Provider [facility] Has the Patient Been in a Care Home Facility in the Past 30 days? No SOCIAL: Living Arrangement: Home Lives With: Alone Financial Resources: Retired Primary Contact: Extended Emergency Contact Information Primary Emergency Contact: Sheron Beltran [place] Mobile Relation: Dtr in Law Supportive: Yes [...] 0 I feel financially burdened by my [id number]-uqytbc expenses for my prescription medication: Disagree completely [...] HHC with [facility] [facility] OT/PT Met with pt bedside, introduced self [...] would like to resume services at d/c. [facility] referral sent. Pt states her dtr in law will transport her at d/c. Anticipate complex d/c needs, case management to remain available for d/c planning and assist as needed. SIGNATURE: MERY Medina PATIENT NAME: Rosa Beltran DATE: April 21, 2018 TIME: 11:04 AM PAGER/CONTACT #: [phone] CONSULT Observed: 04/21/2018 Status: COMPLETED Source: ROUND TOP 10:41 AM CLINIC OTHER CAMPUS REPOSITORY HNO ID: [id number] Author: Jessica Yeager Service: Podiatry Author Type: Resident Type: Consults Filed: 04/21/2018 11:06 AM Note Text: CONSULT: POD SURG SERVICE SERVICE DATE: 04/21/2018 SERVICE TIME: 1030 REASON FOR CONSULT: Right LE ulcerations PRIMARY CARE PHYSICIAN: Mani Newman MD Subjective Ms. Beltran is a 82 year old female who presents for R LE wounds with increasing redness, swelling, pain, drainage. Patient was sent from [facility] due to previous care at [place]. Patient had OR debridement on last admission and required continued wound care. Patients states [facility] has been changing her dressings daily and pt was supposed to continue follow up with Dr. Dempsey in [place] wound care center. Pt was started PO abx for two weeks, off for one week, and restarted two days ago. Pt admits to nausea, denies V/C/F/SOB. PAST MEDICAL HISTORY Diagnosis Date - Acquired hypothyroidism - Acute respiratory failure with hypoxia (HCC) 09/30/2017 - Atrial fibrillation ([facility]) - CAD (coronary artery disease) Dr. Brenda [...] 10/08/2016 - COPD (chronic obstructive pulmonary disease) ([facility]) - Depressive disorder 12/29/2016 - Disruption of surgical wound 09/2015 Right tibia - Dorsalgia 12/29/2016 - Dyslipidemia - Gastric bypass status for obesity 12/29/2016 - Gastroesophageal reflux disease without esophagitis 10/08/2016 - HTN (hypertension) - Muscular weakness 12/29/2016 - Primary osteoarthritis involving multiple joints 12/29/2016 - Pure hypercholesterolemia - Rheumatoid arthritis ([facility]) 2007 - Sleep apnea - Stented coronary artery 12/29/2016 PAST SURGICAL HISTORY Procedure Laterality Date - CC CORONARY STENT 11/20/2012 [facility] LAD - CC CORONARY STENT 12/20/2014 KIMMY, Cfx - SECTION HX - COLONOSCOPY 06/10/2017 [facility] [place] [facility], Nonspecific cecal ulcer - GASTRIC BYPASS HX 1986 - HERNIA REPAIR HX 1987; 1989 - PAST SURGICAL HISTORY OF Right 09/2015 right tibia fracture ORIF - PAST SURGICAL HISTORY OF Right 01/20/2016 Removal of hardware, right tibia - TOTAL KNEE REPLACEMENT Right 2003 [facility] Gen. - TOTAL KNEE REPLACEMENT Left 2004 [facility] Gen. No family history on [...] twice daily. Disp: 60 tablet Rfl: 5 04/19/2018 at Unknown time metOLAzone (ZAROXOLYN) 2.5 [...] needed for Constipation. Disp: 30 capsule Rfl: 04/19/2018 at Unknown time furosemide (LASIX) 40 mg tablet Take 2 tablets by mouth twice daily. Disp: 120 tablet Rfl: 04/19/2018 at Unknown time sodium hypochlorite (DAKIN'S [...] wounds as directed. Disp: 50 g Rfl: 04/19/2018 at Unknown time acetaminophen (TYLENOL) 500 [...] PAGER: WOUND Observed: 04/21/2018 Status: F Source: ROUND TOP CULTURE/STAIN 10:30 AM [facility] REPOSITORY Sp. Request/Comment: - Eswab Smear Result [...] <=0.5 F Performed By: #### WCUL #### [facility] [address] [address] PROGRESS Observed: 04/21/2018 Status: COMPLETED Source: ROUND TOP 9:25 AM [facility] REPOSITORY HNO ID: [id number] Author: Taina Pride (Pharmacist) Service: Pharmacy Author [...] any questions, please contact inpatient pharmacy at [phone]. Age: [age] year old Allergies: ALLERGIES No [...] PHARMACIST CBC Collected: 04/21/2018 Status: F Source: ROUND TOP 4:24 AM CLINIC OTHER CAMPUS REPOSITORY TYPE [...] 10.9 Performed By: #### CBC, CMP #### [facility] [address] [place] [address] COMP METABOLIC PANEL Collected: 04/21/2018 Status: F Source: ROUND TOP 4:24 AM CLINIC OTHER CAMPUS REPOSITORY TYPE [...] 74-99 mg/dL Glucose 87 Result Comment: The [place] Diabetes Association (ADA) provides guidance for cutoff [...] Standards of Medical Care in Diabetes 2016, [place] [employer]. Diabetes Care. 2016.39(Suppl 1). LAB [...] GFR. Performed By: #### CBC, CMP #### [facility] [address] [facility] [phone] PROTIME Collected: 04/21/2018 Status: F Source: ROUND TOP 4:24 AM CLINIC OTHER CAMPUS REPOSITORY TYPE CODE TESTS RESULT OUT OF RANGE REFERENCE UNITS LAB PSEC 9.7-13.0 sec High PT Sec 19.9 LAB INR 0.9-1.3 High PT INR 2.0 Result Comment: Vitamin K Antagonist (VKA) Therapeutic Range: INR 2 to 3 (Target INR of 2.5) Note: For patients treated with VKA drugs, such as warfarin, the [place] [employer] Chest Physicians 2012 Guideline recommends [...] Chest 2012, 141:7S-47S Genevieve RA, et al. [facility] 2017, 70: 252-289 Performed By: #### PT #### [facility] [address] [facility] [phone] CONSULT Observed: 04/21/2018 Status: COMPLETED Source: ROUND TOP 12:00 AM CLINIC OTHER CAMPUS REPOSITORY HNO ID: [id number] Author: Heather Lynn Service: Infectious Disease Author Type: Physician Type: Consults Filed: 04/22/2018 3:37 PM Note Text: [facility]- Consultation ROSA BELTRAN : 1935 AGE: 82 SEX: F ACCTNUM: [id number] [facility]: [facility] LOCATION: [address] ATTENDING PHYSICIAN: MARVIN BLANTON DATE OF CONSULTATION: [...] concerns of ongoing infection. She went to [facility] in [place], [place], where she had a CBC checked. White count was elevated at 21,000 with a left shift. Her creatinine was normal. X-rays of her right leg were done, which did not show any acute changes. She was admitted to [facility] for further management. She was seen by [...] calcaneal fracture on her x-rays done [place] [facility]. Most of her wounds are though on the right lower extremity. RECOMMENDATIONS: 1. Treat with Zosyn for now. 2. Follow cultures that were sent by Podiatry. 3. Check MRI of her right lower extremity to look for underlying osteomyelitis. 4. Follow her closely with you. 5. We will discuss with Podiatry. Heather Lynn M.D. Infectious Disease [id number] PROGRESS Observed: 04/20/2018 Status: COMPLETED Source: ROUND TOP 10:54 PM [facility] OTHER CAMPUS REPOSITORY [facility] ID: [id number] Author: Kayla Payton (Pharmacist) Service: Pharmacy Author [...] in EPIC) At 1700 per RN and PALianneC. 2. No vancomycin level has been drawn [...] have any questions, please contact pharmacy at [phone]. Age: [age] year old Allergies: ALLERGIES No [...] BCPS LACTATE Collected: 04/20/2018 Status: F Source: ROUND TOP 9:17 PM CLINIC OTHER CAMPUS REPOSITORY TYPE CODE TESTS RESULT OUT OF REFERENCE UNITS RANGE LAB LACT 0.5-2.2 mmol/L Lactate 1.5 Performed By: #### LACT #### [facility] [address] [place] [address] PROTIME Collected: 04/20/2018 Status: F Source: ROUND TOP 9:12 PM CLINIC OTHER CAMPUS REPOSITORY TYPE CODE TESTS RESULT OUT OF RANGE REFERENCE UNITS LAB PSEC 9.7-13.0 sec High PT Sec 21.9 LAB INR 0.9-1.3 High PT INR 2.2 Result Comment: Vitamin K Antagonist (VKA) Therapeutic Range: INR 2 to 3 (Target INR of 2.5) Note: For patients treated with VKA drugs, such as warfarin, the [place] [employer]icians 2012 Guideline recommends [...] Chest 2012, 141:7S-47S Genevieve RA, et al. [facility] 2017, 70: 252-289 Performed By: #### PT #### [facility] [address] [facility] [phone] SED RATE WESTERGREN Collected: 04/20/2018 Status: F Source: ROUND TOP 9:12 PM [facility] OTHER CAMPUS REPOSITORY TYPE CODE TESTS RESULT OUT OF REFERENCE UNITS RANGE LAB WSR 0-20 mm/hr Sed Rate High Westergren 56 Performed By: #### WSR, HSCRP #### [facility] [address] [address] ULTRA-SENSITIVE CRP Collected: 04/20/2018 Status: F Source: ROUND TOP 9:12 PM [facility] OTHER CAMPUS REPOSITORY TYPE CODE TESTS RESULT [...] for Disease Control and Prevention and the [place] [employer]. Circulation 2003;107:499-511. Performed By: #### WSR, HSCRP #### [facility] [address] [place], [place] [address] HISTORY PHYSICAL Observed: 04/20/2018 Status: COMPLETED Source: ROUND TOP 7:51 PM CLINIC OTHER CAMPUS REPOSITORY HNO ID: [id number] Author: Justin Dangelo ([place]) Service: General Internal Medicine Author Type: Physician Risk Investigator Type: HANDP Filed: 04/20/2018 8:55 PM Note Text: Attestation signed by Xavier Mercado at 04/20/2018 9:58 PM [facility] STAFF PHYSICIAN NOTE OF PERSONAL INVOLVEMENT IN CARE I have reviewed the history and physical examination obtained and documented by the physician assistant spa manager and I personally participated in the [place] components. I have discussed the case and management of the patient's care. 82 Y F with PMHx of venous stasis ulcer RLE, CAD s/p PCI, AF on coumadin, Pulm HTN, HTN, HLD, BEBA, RA, hypothyroid? who is transferred from [place] ED with chronic RLE wounds with suspected acute cellulitis with elevated wbc. She was admitted last month, seen by ID, podiatry, had debridement in pt and as out pt 2 weeks ago. She does have [facility] who noticed worsening signs of infection [...] Physician: Mani Newman MD NIGHT COVERAGE Page [phone] for any questions between 5.30p-7.30a ASSESSMENT AND [...] HLD, BEBA, RA, hypothyroid who presents from [place] ED with chronic RLE wounds with acute [...] 10/08/2016 - COPD (chronic obstructive pulmonary disease) ([facility]) - Depressive disorder 12/29/2016 - Disruption of surgical wound 09/2015 Right tibia - Dorsalgia 12/29/2016 - Dyslipidemia - Gastric bypass status for obesity 12/29/2016 - Gastroesophageal reflux disease without esophagitis 10/08/2016 - HTN (hypertension) - Muscular weakness 12/29/2016 - Primary osteoarthritis involving multiple joints 12/29/2016 - Pure hypercholesterolemia - Rheumatoid arthritis ([facility]) 2007 - Sleep apnea - Stented coronary artery 12/29/2016 PAST SURGICAL HISTORY: PAST SURGICAL HISTORY Procedure Laterality Date - CC CORONARY STENT 11/20/2012 [facility] - CC CORONARY STENT 12/20/2014 KIM[facility], Cfx - SECTION HX - [facility], Nonspecific cecal ulcer - GASTRIC BYPASS HX 1986 - HERNIA REPAIR HX 1987; 1989 - PAST SURGICAL HISTORY OF Right 09/2015 right tibia fracture ORIF - PAST SURGICAL HISTORY OF Right 01/20/2016 Removal of hardware, right tibia - TOTAL KNEE REPLACEMENT Right 2003 [facility] Gen. - TOTAL KNEE REPLACEMENT Left 2004 [facility] Gen. FAMILY HISTORY: No family [...] MINIMUM 3 Observed: 04/20/2018 Status: C Source: [facility] RIGHT 4:51 PM [facility] REPOSITORY ADDENDUM Oblique fracture of the [...] MINIMUM 3 Observed: 04/20/2018 Status: F Source: [facility] VIEWS RIGHT 4:51 PM [facility] REPOSITORY ORIGINAL [...] 1 VIEW Observed: 04/20/2018 Status: F Source: [facility] 4:50 PM [facility] REPOSITORY ORIGINAL XR CHEST 1 VIEW [...] BRAIN W/O Observed: 04/20/2018 Status: F Source: [facility] CONTRAST 4:50 PM [facility] REPOSITORY ORIGINAL CT HEAD OR BRAIN W/O [...] PM CBC Collected: 04/20/2018 Status: C Source: [facility] 3:57 PM [facility] REPOSITORY TYPE CODE TESTS RESULT [...] 7.4-10.4 fL MPV 8.6 Performed By: #### CBC, PRO, GFR, APTT, BMP, DIFF, MORPH #### [address] [address] PRO Collected: 04/20/2018 Status: F Source: [facility] 3:57 PM [facility] REPOSITORY TYPE CODE TESTS RESULT [...] valves 2.5 - 3.5 Performed By: #### CBC, PRO, GFR, APTT, BMP, DIFF, MORPH #### [address] [place], [place] [address] .GFR Collected: 04/20/2018 Status: F Source: [facility] 3:57 PM [facility] REPOSITORY TYPE CODE TESTS RESULT OUT OF REFERENCE UNITS RANGE LAB GFRAA(LOINC ml/min/1.73 ) sqm GFR 71 [place] Result Comment: GFR Population mean for , [...] mL/min/1.73 square meters Performed By: #### CBC, PRO, GFR, APTT, BMP, DIFF, MORPH #### [address] [address] APTT Collected: 04/20/2018 Status: F Source: [facility] 3:57 [facility] REPOSITORY TYPE CODE TESTS RESULT OUT OF REFERENCE UNITS RANGE LAB PDOSE(LOIN C) Heparin dose Coumadin PO (APTT) LAB APTT0(LOIN 25.1-37.9 seconds C) High APTT 38.3 Result Comment: For Heparin anticoagulation therapy, the recommended therapeutic range is: 47.7-87.7 seconds (1.5 - 2.5 the normal plasma mean). Patients on heparin therapy may have an extreme result. Performed By: #### CBC, PRO, GFR, APTT, BMP, DIFF, MORPH #### [address] [address] BMP Collected: 04/20/2018 Status: F Source: [facility] 3:57 PM [facility] REPOSITORY TYPE CODE TESTS RESULT [...] mg/dL Calcium Lvl 9.1 Performed By: #### CBC, PRO, GFR, APTT, BMP, DIFF, MORPH #### [address] [address] .MANUAL DIFF Collected: 04/20/2018 Status: F Source: [facility] 3:57 PM [facility] REPOSITORY TYPE CODE TESTS RESULT [...] Basophil, Abs 0.10 Manual Performed By: #### CBC, PRO, GFR, APTT, BMP, DIFF, MORPH #### [address] [address] .MORPH Collected: 04/20/2018 Status: F Source: [facility] 3:57 PM [facility] REPOSITORY TYPE CODE TESTS RESULT OUT OF REFERENCE UNITS RANGE LAB PLTE(LOINC) Platelet Normal Estimate Performed By: #### CBC, PRO, GFR, APTT, BMP, DIFF, MORPH #### [address] [address] UA Collected: 04/20/2018 Status: F Source: [facility] 3:57 PM [facility] REPOSITORY TYPE CODE TESTS RESULT [...] Negative Performed By: #### UA, UAMICAO #### [facility] [place] [address] [place], [place] [address] .URINALYSIS MICROSCOPIC Collected: 04/20/2018 Status: F Source: [facility] (OBDUL[facility]) 3:57 PM [facility] REPOSITORY TYPE CODE TESTS RESULT OUT OF REFERENCE UNITS RANGE LAB WBCUA(LOIN None Seen /hpf C) UA WBC None Seen LAB RBCUA(LOIN None Seen /hpf C) UA RBC None Seen LAB EPIUA(LOIN None Seen /hpf C) UA Squam Epithelial None Seen Performed By: #### UA, UAMICAO #### [facility] [address] [place], [place] [address] PROGRESS Observed: 04/14/2018 Status: COMPLETED Source: ROUND TOP 5:37 PM [facility] REPOSITORY HNO ID: [id number] Author: Corey Mckeon Service: (none) Author Type: [...] met Beta louann for ASHD with prior [place] or prior LVEF<40 (NQF 0070) - met [...] was done while she was hospitalized in [place]. Her pulmonary hypertension had improved slightly. There is only moderate tricuspid insufficiency. Electronically Signed: Corey Mckeon MD April 14, 2018 5:37 PM CC: Mani Newman MD PROTIME Collected: 04/14/2018 Status: F Source: ROUND TOP 12:15 PM [facility] REPOSITORY TYPE CODE TESTS RESULT OUT OF RANGE REFERENCE UNITS LAB PSEC 9.7-13.0 sec High PT Sec 19.6 LAB INR 0.9-1.3 High PT INR 2.0 Result Comment: Vitamin K Antagonist (VKA) Therapeutic Range: INR 2 to 3 (Target INR of 2.5) Note: For patients treated with VKA drugs, such as warfarin, the [place] [employer] Physicians 2012 Guideline recommends [...] GH, et al. Chest 2012, 141:7S-47S Genevieve RA et al. [facility] 2017, 70: 252-289 Performed By: #### PT #### [facility] [address] [address] BASIC METABOLIC PANL Collected: 04/14/2018 Status: F Source: ROUND TOP 12:15 PM [facility] REPOSITORY TYPE CODE TESTS RESULT OUT OF REFERENCE UNITS RANGE LAB GLU 74-99 mg/dL Glucose 97 Result Comment: The [place] Diabetes Association (ADA) provides guidance for cutoff [...] Standards of Medical Care in Diabetes 2016, [place] [employer]. Diabetes Care. 2016.39(Suppl 1). LAB [...] actual GFR. Performed By: #### BMP #### [facility] [address] [place], [place] [address] CNOV Observed: 04/14/2018 Status: COMPLETED Source: ROUND TOP 11:30 AM [facility] REPOSITORY Office Visit (CAWSTR) ROSA BELTRAN ([id number]) 1935 F Date Time Provider Department 04/14/18 11:30 AM COREY MCKEON CAWSTR During your visit today, we recorded the [...] met Beta louann for ASHD with prior [place] or prior LVEF<40 (NQF 0070) - met [...] was done while she was hospitalized in [place]. Her pulmonary hypertension had improved slightly. There is only moderate tricuspid insufficiency. Electronically Signed: Corey Mckeon MD April 14, 2018 5:37 PM CC: Mani Newman MD Referring Provider: COREY MCKEON [[id number]] Allergies As of Date: 04/14/2018 (No Known [...] [I89.0] Order(s):BASIC METABOLIC PNL [SQBMP] Order #: [id number] FUTURE spironolactone (ALDACTONE) 25 mg tabletTake 2 [...] 04/14/18 PROGRESS Observed: 04/11/2018 Status: COMPLETED Source: ROUND TOP 2:19 PM CLINIC OTHER CAMPUS REPOSITORY O ID: [id number] Author: Chintan Dempsey DPM Service: (none) Author [...] 5*3 at that time post Id and arvindra is at [facility] here for wound check having wounds taken care of CURRENT MEDICATIONS: Warfarin Sodium Oral Tablet 1 MG (01/02/2018) Vitamin D (Ergocalciferol) Oral Capsule 19408 UNIT (12/24/2017) Spironolactone Oral Tablet 25 MG [...] possible mist therapy next step instructions for HHC givedn new ordres follow up can return [...] I89.0 CNOV Observed: 04/11/2018 Status: COMPLETED Source: ROUND TOP 11:00 AM CLINIC OTHER CAMPUS REPOSITORY Office Visit (PLWDMR) ROSA BELTRAN ([id number]) 1935 F Date Time Provider Department 04/11/18 [...] following changes to the Wound Center at [phone] or go to the Emergency Department: ? [...] time post Id and ravindra is at [facility] here for wound check having wounds taken care of CURRENT MEDICATIONS: Warfarin Sodium Oral Tablet 1 MG (01/02/2018) Vitamin D (Ergocalciferol) Oral Capsule 56760 UNIT (12/24/2017) Spironolactone Oral Tablet 25 MG [...] possible mist therapy next step instructions for HHC givedn new ordres follow up can return [...] lower extremity 457.1 I89.0 Referring Provider: LUIS SIMONS, ([facility]) [[id number]] Allergies As of Date: 04/11/2018 (No Known [...] following changes to the Wound Center at [phone] or go to the Emergency Department: ? Fever or chills ? Increased drainage ? Green or yellow drainage ? Foul odor ? Increased pain ? Hardness around the wound ? Redness, warmth or swelling of the surrounding tissue ? Color change to the wound PLAN: Follow up with Marlen in 2 weeks Use Lymphedema pumps DAILY Chintan Dempsey DPM/csm Visit Notes: >> Peter Martinez) TORY Jason Apr 11, 2018 11:23 AM [...] 04/11/18 ANA Observed: 04/06/2018 Status: COMPLETED Source: ROUND TOP 12:00 AM [facility] REPOSITORY Patient Outreach (INTMWS) DEVINROSA L ([id number]) 1935 F Date Time Provider Department 04/06/18 MARITZA RUSSELL During your visit today, we recorded the following information about you: Allergies As of Date: 04/06/2018 (No Known Allergies) Date Reviewed: 03/24/2018 Reviewed by: Guillermina (Rn) ELENA Mora - Fully Assessed 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 Patient to use [facility] Bedside Delivery - YES 2. If fax, patient would like us to fax prescriptions to Pharmacy of choice a. Pharmacy: b. Location: c. Phone: 3. Insurance card on file - YES 4. Credit card for payment - YES PHARMACY BEDSIDE DELIVERY SERVICE Patient Name: Rosa Beltran The marked outpatient medications were Filled at: [place] and delivered to the patient's bedside to [...] or your Primary Care Provider. Yamilka Rosa (ComCam) PAGER: [phone] March 24, 2018 2:13 PM CASE MANAGEM Observed: 03/24/2018 Status: COMPLETED Source: ROUND TOP 2:00 PM CLINIC OTHER CAMPUS REPOSITORY HNO ID: [id number] Author: Maritza ParksRn) ELENA Cadet Service: Case [...] and plan for meeting these needs: Home [facility] HHC and family assist as needed. Does the patient have an acute stroke diagnosis, or has the patient had a stroke during this admission? No HANDOFF COMMUNICATION: Primary Care Physician: Mani Newman MD Summary of Care to Dr. Newman and [facility] TRANSPORTATION ARRANGEMENTS: Car via family ADDITIONAL CONTACT RESOURCES: N/A Discharge Information Row Name Surgery in Location [place] OR on 03/22/2018 ED to Hosp-Admission (Current) from 03/17/2018 in [facility] Agency ? [facility] Phone# ? [phone] Start of Care ? 03/24/18 Needs Prior to Discharge: None;Ready for Discharge IM letter given to Rosa Beltran on 03/24/2018. Discharge order written for today to home with home health care. Patient continues to decline SNF as well as home PT and OT. Patient indicates to ELENA DIAZ that she is only agreeable to home care for nursing for wound care[facility]. Patient is agreeable to discharge today and indicates that her [id number] will be transporting home. Patient declines PCP follow-up indicating that she will follow-up with Dr. Dempsey and the wound center. SIGNATURE: Maritza Cadet RN PATIENT NAME: Rosa Beltran DATE: March 24, 2018 TIME: 2:00 PM PAGER/CONTACT #: [phone] CONSULT PROG Observed: 03/24/2018 Status: COMPLETED Source: ROUND TOP 1:09 PM CLINIC OTHER CAMPUS REPOSITORY HNO ID: [id number] Author: Checo Kay MD Service: Infectious Disease [...] reviewed Imaging data: reviewed Checo Kay MD [phone] 03/23/2018 9:06 AM ALLIED HEALTH Observed: 03/24/2018 Status: COMPLETED Source: ROUND TOP 1:07 PM CLINIC OTHER CAMPUS REPOSITORY HNO ID: [id number] Author: Svetlana (Rn) ELENA Gonzalez Service: Ostomy Author Type: Registered [...] 4) Assessment as above Active Pressure Injury 03/17/18 1704 Entered in Error (Active) Number of days: 6 Pressure Injury 03/17/18 1706 Ankle - Right Lateral (Active) Stage Injury 3 03/21/2018 10:23 PM Group Segment Consultant Related Pressure Injury No 03/21/2018 10:23 PM Dressing Status Initial Post-Op Dressing Intact 03/23/2018 8:45 AM Frequency of Dressing Change Daily 03/23/2018 8:45 AM Dressing Change Due 03/22/18 03/23/2018 8:45 AM Dressing/Treatment Type ABD;Kerlex Roll;Gauze/ Xeroform 03/21/2018 10:23 PM Drainage Description Serosanguineous 03/20/2018 5:00 PM Drainage Amount Large 03/20/2018 5:00 PM Odor No 03/19/2018 9:50 PM Wound Surface Color Red;[place];Yellow 03/20/2018 5:00 PM Surrounding Skin Erythematous 03/20/2018 [...] No 03/19/2018 9:50 PM Wound Surface Color Red;[place] 03/19/2018 9:50 PM Surrounding Skin Erythematous 03/19/2018 9:50 PM Number of days: Pressure Injury 03/17/18 1711 Heel - Left (Active) Stage Injury 1 03/21/2018 10:23 PM Group Segment Consultant Related Pressure Injury No 03/23/2018 8:45 AM Dressing Status None: Open to Air 03/23/2018 8:45 AM Drainage Description None 03/23/2018 8:45 AM Drainage Amount None 03/23/2018 8:45 AM Odor No 03/23/2018 8:45 AM Wound Surface Color Dark Purple 03/23/2018 8:45 AM Surrounding Skin Intact 03/23/2018 8:45 AM Number of days: 6 Recommendations: Dressing change done to all wounds as order by . Anterior ankle and ace padded with ABD [...] necessary. CNDS Observed: 03/24/2018 Status: COMPLETED Source: ROUND TOP 12:59 PM CLINIC OTHER CAMPUS REPOSITORY HNO ID: [id number] Author: Liza Barry Service: General Internal Medicine [...] ED to Hosp-Admission (Current) from 03/17/2018 in [facility] Agency ? [facility] Phone# ? [phone] Start of Care ? 03/24/18 TIME OF CARE (Use first blank if not applicable): TIME OF CARE: Discharge Management: I personally spent greater than 30 minutes involved in the discharge management of this patient. SIGNATURE: Liza Barry MD PATIENT NAME: Rosa Beltran DATE: March 24, 2018 TIME: 12:59 PM PAGER/CONTACT #: [phone] CBC AND DIFFERENTIAL Collected: 03/24/2018 Status: F Source: ROUND TOP 4:56 AM [facility] OTHER CAMPUS REPOSITORY TYPE CODE TESTS RESULT [...] k/uL Abs Lymph 1.39 LAB AMONO % Bowman% 10.1 LAB AAMONO <0.87 k/uL Abs Bowman 0.48 LAB AEOS % Eosin% 6.6 LAB AAEOS <0.46 k/uL Abs Eosin 0.31 LAB ABASO % Baso% 0.6 LAB AABASO <0.11 k/uL Abs Baso 0.03 Performed By: #### CBCDIF, PT, BMP #### [facility] [address] [place] [address] PROTIME Collected: 03/24/2018 Status: F Source: ROUND TOP 4:56 AM [facility] OTHER CAMPUS REPOSITORY TYPE CODE TESTS RESULT OUT OF RANGE REFERENCE UNITS LAB PSEC 9.7-13.0 sec High PT Sec 17.0 LAB INR 0.9-1.3 High PT INR 1.7 Result Comment: Vitamin K Antagonist (VKA) Therapeutic Range: INR 2 to 3 (Target INR of 2.5) Note: For patients treated with VKA drugs, such as warfarin, the [place] [employer] 2012 Guideline recommends [...] Chest 2012, 141:7S-47S Genevieve RA, et al. [facility] 2017, 70: 252-289 Performed By: #### CBCDIF, PT, BMP #### [facility] [address] [facility] [phone] BASIC METABOLIC PANL Collected: 03/24/2018 Status: F Source: ROUND TOP 4:56 AM CLINIC OTHER CAMPUS REPOSITORY TYPE CODE TESTS RESULT OUT OF REFERENCE UNITS RANGE LAB GLU 74-99 mg/dL High Glucose 121 Result Comment: The [place] Diabetes Association (ADA) provides guidance for cutoff [...] Standards of Medical Care in Diabetes 2016, [place] [employer]. Diabetes Care. 2016.39(Suppl 1). LAB [...] Performed By: #### CBCDIF, PT, BMP #### [facility] [address] [facility] [phone] PLAN OF CARE Observed: 03/23/2018 Status: COMPLETED Source: ROUND TOP 2:40 PM CLINIC OTHER CAMPUS REPOSITORY O ID: [id number] Author: Maritza (Rn) ELENA Cadet Service: Case [...] Leg Ulcer, Right, With Fat Layer Exposed ([facility]) Attendees Present at Rounds: Power Generation Technician: Maritza Cadte Provider: Dr. Barry Needs Discussed on Rounds: Discharge Needs Mobility Plan of Care Anticipated Discharge Disposition: Home with Home Health Care Last Vitals: BP 124/66 Pulse 58 Temp (Src) 98.2 (Oral) Resp 18 Ht 5' 4 (1.63m) Wt 198 lb 13.7 oz (90.2kg) SpO2 97% BMI 34.12 kg/(m2). EMR reviewed. Anticipate discharge tomorrow with [facility] for [facility]. Patient is refusing SNF. [...] March 23, 2018 TIME: 2:40 PM CSN: [id number] PROGRESS Observed: 03/23/2018 Status: COMPLETED Source: ROUND TOP 2:35 PM CLINIC OTHER CAMPUS REPOSITORY HNO ID: [id number] Author: Liza Barry Service: General Internal Medicine Author Type: Physician Type: Progress Notes Filed: 03/23/2018 2:36 PM Note Text: DEPARTMENT OF HOSPITAL MEDICINE PROGRESS NOTE SERVICE DATE: 03/23/2018 SERVICE TIME: 2:35 PM Hospital Medicine/Primary Attending: Liza Barry MD NIGHT AND WEEKEND COVERAGE: Nights: Please contact pager [phone]. Subjective INTERVAL HPI: pt seen and examined, [...] 2018 -- 03/17/182029 vte non-pharmacologic prophylaxis contraindicated (fl,oh) 03/17/182029 vte current anticoag therapy (ky,nc) VTE Prophylaxis: VTE prophylaxis appropriate Disposition: Home with [facility] Plan of care discussed with: Patient SIGNATURE: Liza Barry MD PATIENT NAME: Rosa Beltran DATE: March 23, 2018 TIME: 2:36 PM PAGER/CONTACT #: [phone] etx [id number] CONSULT PROG Observed: 03/23/2018 Status: COMPLETED Source: ROUND TOP 9:05 AM CLINIC OTHER CAMPUS REPOSITORY HNO ID: [id number] Author: Checo Kay MD Service: Infectious Disease [...] reviewed Imaging data: reviewed Checo Kay MD [phone] 03/23/2018 9:06 AM PROTIME Collected: 03/23/2018 Status: F Source: ROUND TOP 4:23 AM CLINIC OTHER CAMPUS REPOSITORY TYPE CODE TESTS RESULT OUT OF RANGE REFERENCE UNITS LAB PSEC 9.7-13.0 sec High PT Sec 16.2 LAB INR 0.9-1.3 High PT INR 1.6 Result Comment: Vitamin K Antagonist (VKA) Therapeutic Range: INR 2 to 3 (Target INR of 2.5) Note: For patients treated with VKA drugs, such as warfarin, the [place] [employer]icians 2012 Guideline recommends [...] Chest 2012, 141:7S-47S Genevieve RA, et al. [facility] 2017, 70: 252-289 Performed By: #### PT, CBCDIF, BMP #### [facility] [address] [place] [address] CBC AND DIFFERENTIAL Collected: 03/23/2018 Status: F Source: ROUND TOP 4:23 AM CLINIC OTHER CAMPUS REPOSITORY TYPE [...] k/uL Abs Lymph 1.57 LAB AMONO % Bowman% 12.3 LAB AAMONO <0.87 k/uL Abs Bowman 0.63 LAB AEOS % Eosin% 6.6 LAB AAEOS <0.46 k/uL Abs Eosin 0.34 LAB ABASO % Baso% 0.6 LAB AABASO <0.11 k/uL Abs Baso 0.03 Performed By: #### PT, CBCDIF, BMP #### [facility] [address] [facility] [phone] BASIC METABOLIC PANL Collected: 03/23/2018 Status: F Source: ROUND TOP 4:23 AM CLINIC OTHER CAMPUS REPOSITORY TYPE CODE TESTS RESULT OUT OF REFERENCE UNITS RANGE LAB GLU 74-99 mg/dL Glucose 82 Result Comment: The [place] Diabetes Association (ADA) provides guidance for cutoff [...] Standards of Medical Care in Diabetes 2016, [place] [employer]. Diabetes Care. 2016.39(Suppl 1). LAB [...] actual GFR. Performed By: #### PT, CBCDIF, GRETCHEN #### [facility] [address] [place] [address] ANES POST Observed: 03/22/2018 Status: COMPLETED Source: ROUND TOP 3:10 PM [facility] OTHER CAMPUS REPOSITORY O ID: [id number] Author: Vivek Gonzalez Service: Anesthesiology Author Type: Anesthesiologist Type: Anesthesia PostOp Filed: 03/22/2018 3:11 PM Note Text: POST ANESTHESIA EVALUATION NOTE SERVICE DATE: 03/22/2018 SERVICE TIME: 3:10 PM : 1935 Vitals: 03/21/187 03/21/18 2319 03/22/18 0915 03/22/18 1303 Temp: [...] 22, 2018 TIME: 3:10 PM PAGER/CONTACT #: [phone] PROGRESS Observed: 03/22/2018 Status: COMPLETED Source: ROUND TOP 2:20 PM CLINIC OTHER CAMPUS REPOSITORY HNO ID: [id number] Author: Liza Stevenson) Asha Service: General Internal Medicine Author Type: Physician Type: Progress Notes Filed: 03/22/2018 2:21 PM Note Text: DEPARTMENT OF HOSPITAL MEDICINE PROGRESS NOTE SERVICE DATE: 03/22/2018 SERVICE TIME: 2:20 PM Hospital Medicine/Primary Attending: Liza Barry MD NIGHT AND WEEKEND COVERAGE: Nights: Please contact pager [phone]. Subjective INTERVAL HPI: pt seen and examined, [...] (MAR Hold due to Transfer since 03/22/18 115) 81 mg ORAL DAILY 03/17/182017 -- 03/17/182029 [MAR Hold due to Transfer] warfarin 3 mg tab(s) (COUMADIN) (MAR Hold due to Transfer since 03/22/18 115) 3 mg ORAL DAILY 03/17/182017 -- 03/17/182029 vte non-pharmacologic prophylaxis contraindicated (ky,nc) 03/17/182029 vte current anticoag therapy (ky,nc) VTE Prophylaxis: VTE prophylaxis appropriate Disposition: Home with [facility] Plan of care discussed with: Patient SIGNATURE: Liza Barry MD PATIENT NAME: Rosa Beltran DATE: March 22, 2018 TIME: 2:21 PM PAGER/CONTACT #: [phone] etx [id number] WOUND Observed: 03/22/2018 Status: F Source: ROUND TOP CULTURE/STAIN 1:27 PM [facility] OTHER [place] REPOSITORY Smear Result - No organisms seen Rare Polymorphonuclear leukocytes Culture Result - Rare Pseudomonas aeruginosa --> ABNORMAL ALERT Refer to specimen collected on 03/19/2018 AT 17:00 ([id number]) Rare --> ABNORMAL ALERT Coagulase negative Staphylococcus species --&gt ; ABNORMAL ALERT No further workup --> ABNORMAL ALERT Performed By: #### WCUL #### [facility] [address] [place], [place] [address] Observed: 03/22/2018 Status: F Source: ROUND TOP ANAEROBE CULTURE 1:27 PM [facility] OTHER [place] REPOSITORY Culture Result - Negative for anaerobes. Performed By: #### ANACUL #### [facility] [address] [place], [place] [address] BRIEF OP NOT Observed: 03/22/2018 Status: COMPLETED Source: ROUND TOP 12:52 PM [facility] OTHER CAMPUS REPOSITORY HNO ID: [id number] Author: Chintan Dempsey DPM Service: Podiatry Author Type: Physician Type: Brief Op Note Filed: 03/22/2018 12:54 PM Note Text: BRIEF OPERATIVE / PROCEDURE NOTE LOG ID: [id number] SURGERY/PROCEDURE DATE: 03/22/2018 INCISION/PROCEDURE START TIME: 12:41 PM INCISION CLOSE/PROCEDURE END TIME: SURGEON(S)/PROCEDURALIST(S) AND RECEIVING ASSOCIATE STORE(S): Surgeon(s) and Role: * Chintan Dempsey DPM [...] ANES PREOP Observed: 03/22/2018 Status: COMPLETED Source: ROUND TOP 11:36 AM [facility] OTHER CAMPUS REPOSITORY HNO ID: [id number] Author: Taran Lawton Service: Anesthesiology Author Type: [...] (Hcc) Cecal Ulcer Respiratory Failure With Hypoxia ([facility]) Heart Failure With Preserved Ejection Fraction ([facility]) Adjustment Disorder With Depressed Mood Constipation Leg Ulcer, Right, With Fat Layer Exposed ([facility]) PAST MEDICAL HISTORY Diagnosis Date - Acquired hypothyroidism - Acute respiratory failure with hypoxia (HCC) 09/30/2017 - Atrial fibrillation ([facility]) - CAD (coronary artery disease) Dr. Brenda [...] 10/08/2016 - COPD (chronic obstructive pulmonary disease) ([facility]) - Depressive disorder 12/29/2016 - Disruption of [...] - TOTAL KNEE REPLACEMENT Right 2003 [facility] Gen. - TOTAL KNEE REPLACEMENT Left 2004 [facility] Gen. No family history on [...] (SYNTHROID) 100 mcg ORAL DAILY (6 AM) Dicksonramlula Meenakshisundaram 100 mcg at 03/22/18 0520 ondansetron [...] March 22, 2018 TIME: 11:36 AM CSN: [id number] CONSULT PROG Observed: 03/22/2018 Status: COMPLETED Source: ROUND TOP 9:28 AM CLINIC OTHER CAMPUS REPOSITORY HNO ID: [id number] Author: Checo Kay MD Service: Infectious Disease [...] reviewed Imaging data: reviewed Checo Kay MD [phone] 03/22/2018 9:30 AM PROTIME Collected: 03/22/2018 Status: F Source: ROUND TOP 5:33 AM [facility] OTHER CAMPUS REPOSITORY TYPE CODE TESTS RESULT OUT OF RANGE REFERENCE UNITS LAB PSEC 9.7-13.0 sec High PT Sec 19.1 LAB INR 0.9-1.3 High PT INR 1.9 Result Comment: Vitamin K Antagonist (VKA) Therapeutic Range: INR 2 to 3 (Target INR of 2.5) Note: For patients treated with VKA drugs, such as warfarin, the [place] [employer]icians 2012 Guideline recommends [...] Chest 2012, 141:7S-47S Genevieve RA, et al. [facility] 2017, 70: 252-289 Performed By: #### PT, CBCDIF #### [facility] [address] [place] [address] CBC AND DIFFERENTIAL Collected: 03/22/2018 Status: F Source: ROUND TOP 5:33 AM CLINIC OTHER CAMPUS REPOSITORY TYPE [...] k/uL Abs Lymph 1.66 LAB AMONO % Bowman% 11.1 LAB AAMONO <0.87 k/uL Abs Bowman 0.58 LAB AEOS % Eosin% 6.5 LAB AAEOS <0.46 k/uL Abs Eosin 0.34 LAB ABASO % Baso% 0.8 LAB AABASO <0.11 k/uL Abs Baso 0.04 Performed By: #### PT, CBCDIF #### [facility] [address] [place] [address] BASIC METABOLIC PANL Collected: 03/22/2018 Status: F Source: ROUND TOP 5:33 AM [facility] OTHER [place] REPOSITORY TYPE CODE TESTS RESULT OUT OF REFERENCE UNITS RANGE LAB GLU 74-99 mg/dL Glucose 76 Result Comment: The [place] Diabetes Association (ADA) provides guidance for cutoff [...] Standards of Medical Care in Diabetes 2016, [place] [employer]. Diabetes Care. 2016.39(Suppl 1). LAB [...] actual GFR. Performed By: #### BMP #### [facility] [address] [facility] [phone] NURSING PROG Observed: 03/22/2018 Status: COMPLETED Source: ROUND TOP 3:33 AM CLINIC OTHER CAMPUS REPOSITORY [facility] ID: [id number] Author: Timothy ParksRn) ELENA Esposito Service: Nursing Author Type: Registered Nurse Type: Nursing Progress Note Filed: 03/22/2018 3:54 AM Note Text: Nursing Progress Note Patient Name: Rosa Beltran [id number] Daily Note: 3333 LIP paged r/t pt asking for pain med, pt currently NPO. [phone] Okay with NPO except meds per Dr. Reyes. This note was completed by: Timothy Esposito RN OPERATIVE NO Observed: 03/22/2018 Status: COMPLETED Source: ROUND TOP 12:00 AM [facility] OTHER CAMPUS REPOSITORY O ID: [id number] Author: Chintan Dempsey DPM Service: Podiatry Author Type: Physician Type: Operative Report Filed: 03/23/2018 8:05 AM Note Text: [facility]- Operative Report ROSA BELTRAN : 1935 AGE: 82 SEX: F ACCTNUM: [id number] [facility]: [facility] LOCATION: [address] ATTENDING PHYSICIAN: LIZA STEVENSON) [facility] DATE OF PROCEDURE: 03/22/2018 SURGEON: Jose Guadalupe Arnold.PKellie. RECEIVING ASSOCIATE STORE: GONZALO YeagerY-3. ANESTHESIA: Local sedation. A total of 10 [...] the Wound Center. Chintan Dempsey D.P.M. Podiatry RL:[id number] /[phone] cc: * CONSULT PROG Observed: 03/21/2018 Status: COMPLETED Source: ROUND TOP 3:25 PM CLINIC OTHER CAMPUS REPOSITORY HNO ID: [id number] Author: Checo Kay MD Service: Infectious Disease [...] reviewed Imaging data: reviewed Checo Kay MD [phone] 03/21/2018 3:26 PM US ARTERIAL PVR Observed: 03/21/2018 Status: F Source: [facility] 3:01 PM CLINIC OTHER CAMPUS REPOSITORY * * *Final Report* * * DATE OF EXAM: Mar 21 2018 3:01PM U 1107 - US ARTERIAL PVR LOWER / [...] vasospasm, small vessel disease of the foot. Automatic Grinder Operator: DWIGHT Transcribe Date/Time: Mar 21 2018 4:03P Dictated by : CARYN SUMMERS MD This examination was interpreted and the report reviewed and electronically signed by: CARYN SUMMERS MD on Mar 21 2018 4:08PM EST [id number] Observed: 03/21/2018 Status: COMPLETED Source: ROUND TOP 2:42 PM CLINIC OTHER CAMPUS REPOSITORY HNO ID: [id number] Author: Liza Barry Service: General Internal Medicine Author Type: Physician Type: Progress Notes Filed: 03/22/2018 2:09 PM Note Text: DEPARTMENT OF HOSPITAL MEDICINE PROGRESS NOTE SERVICE DATE: 03/21/2018 SERVICE TIME: 2:45 PM Hospital Medicine/Primary Attending: Liza Barry MD NIGHT AND WEEKEND COVERAGE: Nights: Please contact pager [phone]. Subjective INTERVAL HPI: pt seen and examined, [...] 03/17/182017 -- 03/17/182029 vte non-pharmacologic prophylaxis contraindicated (ky,nc) 03/17/182029 vte current anticoag therapy (ky,nc) VTE Prophylaxis: VTE prophylaxis appropriate Disposition: Home with [facility] Plan of care discussed with: Patient SIGNATURE: Liza Barry MD PATIENT NAME: Rosa Beltran DATE: March 21, 2018 TIME: 2:43 PM PAGER/CONTACT #: [phone] etx [id number] NURSING PROG Observed: 03/21/2018 Status: COMPLETED Source: ROUND TOP 12:43 PM CLINIC OTHER CAMPUS REPOSITORY O ID: [id number] Author: Gay De La Rosa (Rn) ELENA Lauren Service: (none) Author Type: Registered Nurse Type: Nursing Progress Note Filed: 03/21/2018 3:34 PM Note Text: Nursing Progress Note Patient Name: Rosa Beltran Patient Location: [facility]-0205/EU-[id number] Daily Note: 1243: Spoke to Dr Brary regarding pt being on coumadin and plan for surgery tomorrow. Stated to hold tonights dose and podiatry aware of pts current medications. 1249: message left for dr dempsey regarding pt current INR and being on coumadin. 1330: Spoke to Dr Dempsey regarding current INR. Hold dose tonight and okay for surgery tomorrow. This note was completed by: Gay Lauren RN ALLIED HEALTH Observed: 03/21/2018 Status: COMPLETED Source: ROUND TOP 12:30 PM [facility] OTHER CAMPUS REPOSITORY HNO ID: [id number] Author: Svetlana Gonzalez RN Service: Ostomy Author Type: Registered Nurse Type: Allied Health Filed: 03/21/2018 1:38 PM Note Text: Patient seen today and was told podiatry resident had been in earlier and changed her dressings. Plan for OR debridement tomorrow. Deferred visit for today. Svetlana Gonzalez RN CWOCN CONSULT PROG Observed: 03/21/2018 Status: COMPLETED Source: ROUND TOP 10:08 AM [facility] REPOSITORY HNO ID: [id number] Author: Jessica Yeager Service: Podiatry Author Type: [...] OF CARE Observed: 03/21/2018 Status: COMPLETED Source: ROUND TOP 9:30 AM CLINIC OTHER CAMPUS REPOSITORY HNO ID: [id number] Author: Maritza ParksRn) ELENA Cadet Service: Case [...] Layer Exposed (Hcc) Attendees Present at Rounds: Power Generation Technician: Maritza Cadet Provider: Dr. Barry Needs Discussed [...] Plans on returning hoe with resumption of [facility]. Nursing: Cardiac Intervention(s) Plan: Monitor [...] Management;Position to Optimal Function;Assist with Ambulation and Transfers;[place] Safety Measures;Pressure Ulcer Prevention Mobility Patient/Family Goals: [...] March 21, 2018 TIME: 10:29 AM CSN: [id number] CBC AND DIFFERENTIAL Collected: 03/21/2018 Status: F Source: ROUND TOP 4:11 AM CLINIC OTHER CAMPUS REPOSITORY TYPE [...] k/uL Abs Lymph 1.47 LAB AMONO % Bowman% 11.7 LAB AAMONO <0.87 k/uL Abs Bowman 0.66 LAB AEOS % Eosin% 6.2 LAB AAEOS <0.46 k/uL Abs Eosin 0.35 LAB ABASO % Baso% 0.5 LAB AABASO <0.11 k/uL Abs Baso 0.03 Performed By: #### CBCDIF, PT, BMP, MG1 #### [facility] [address] [facility] [phone] PROTIME Collected: 03/21/2018 Status: F Source: ROUND TOP 4:11 AM CLINIC OTHER CAMPUS REPOSITORY TYPE CODE TESTS RESULT OUT OF RANGE REFERENCE UNITS LAB PSEC 9.7-13.0 sec High PT Sec 22.9 LAB INR 0.9-1.3 High PT INR 2.3 Result Comment: Vitamin K Antagonist (VKA) Therapeutic Range: INR 2 to 3 (Target INR of 2.5) Note: For patients treated with VKA drugs, such as warfarin, the [place] [employer] 2012 Guideline recommends [...] Chest 2012, 141:7S-47S Genevieve RA, et al. [facility] 2017, 70: 252-289 Performed By: #### CBCDIF, PT, BMP, MG1 #### [facility] [address] [facility] [phone] BASIC METABOLIC PANL Collected: 03/21/2018 Status: F Source: ROUND TOP 4:11 AM [facility] OTHER CAMPUS REPOSITORY TYPE CODE TESTS RESULT OUT OF REFERENCE UNITS RANGE LAB GLU 74-99 mg/dL Glucose 88 Result Comment: The [place] Diabetes Association (ADA) provides guidance for cutoff [...] Standards of Medical Care in Diabetes 2016, [place] [employer]. Diabetes Care. 2016.39(Suppl 1). LAB [...] By: #### CBCDIF, PT, BMP, MG1 #### [facility] [address] [facility] [phone] MAGNESIUM Collected: 03/21/2018 Status: F Source: ROUND TOP 4:11 AM CLINIC OTHER CAMPUS REPOSITORY TYPE CODE TESTS RESULT OUT OF REFERENCE UNITS RANGE LAB MG 1.7-2.3 mg/dL Magnesium 2.0 Performed By: #### CBCDIF, PT, BMP, MG1 #### [facility] [address] [place] [address] PROGRESS Observed: 03/21/2018 Status: COMPLETED Source: ROUND TOP 1:09 AM [facility] REPOSITORY HNO ID: [id number] Author: Timothy ParksRn) ELENA Esposito Service: Nursing Author Type: Registered Nurse Type: Progress Notes Filed: 03/21/2018 1:10 AM Note Text: Nursing Progress Note Vital Operations Agent Assessment Note Patient Name: Rosa Beltran Patient Location: [facility]5/[id number] Patient Vitals in the past 4 hrs: [...] NURSING PROG Observed: 03/21/2018 Status: COMPLETED Source: ROUND TOP 1:07 AM [facility] REPOSITORY HNO ID: [id number] Author: Timothy ParksRn) Cate RN Service: Nursing Author Type: Registered Nurse Type: Nursing Progress Note Filed: 03/21/2018 1:07 AM Note Text: Nursing Progress Note Patient Name: Rosa Beltran Patient Location: [facility]5/[id number] Daily Note: 0107 LIP paged r/t order clarification. This note was completed by: Timothy Esposito RN CNCO Observed: 03/21/2018 Status: COMPLETED Source: ROUND TOP 12:00 AM CLINIC OTHER CAMPUS REPOSITORY Letter Text Rosa Beltran March 21, 2018 [facility] [address] [place], [place] [address] 03/21/2018 [facility]# [id number] Rosa Beltran [address] [place] [phone] Dear Ms. Beltran: We have been unsuccessful in reaching you by phone. Please call our office at for further instructions. Thank you. Sincerely, Cardiology CASE MANAGEM Observed: 03/20/2018 Status: COMPLETED Source: ROUND TOP 2:50 PM [facility] OTHER CAMPUS REPOSITORY HNO ID: [id number] Author: Maritza Hammer) ELENA Cadet Service: Case [...] that she plans on returning home with [facility] for wound care. Patient indicates that she does not feel she needs PT/OT at home. Patient also reports that she wears 2-3 liters of O2 PRN and has a portable O2 tank available if needed. CM assigned will continue to follow. SIGNATURE: Maritza Cadet RN PATIENT NAME: Rosa Beltran DATE: March 20, 2018 TIME: 2:51 PM PAGER/CONTACT #: [phone] MRI LOWER LEG WO Observed: 03/20/2018 Status: F Source: [facility] IVCON RT 1:13 PM CLINIC OTHER CAMPUS REPOSITORY * * *Final Report* * * DATE OF EXAM: Mar 20 2018 1:13PM [facility] 0225 - MRI LOWER LEG WO [...] from hardware. 2. Diffuse soft tissue edema/cellulitis. Automatic Grinder Operator: PSCB Transcribe Date/Time: Mar 20 2018 2:10P Dictated by : BENNIE VELASQUEZ MD This examination was interpreted and the report reviewed and electronically signed by: BENNIE VELASQUEZ MD on Mar 20 2018 2:22PM EST [id number] PROGRESS Observed: 03/20/2018 Status: COMPLETED Source: ROUND TOP 12:58 PM CLINIC OTHER CAMPUS REPOSITORY O ID: [id number] Author: Liza Barry Service: General Internal Medicine Author Type: Physician Type: Progress Notes Filed: 03/20/2018 1:08 PM Note Text: DEPARTMENT OF HOSPITAL MEDICINE PROGRESS NOTE SERVICE DATE: 03/20/2018 SERVICE TIME: 12:58 PM Hospital Medicine/Primary Attending: Liza Barry MD NIGHT AND WEEKEND COVERAGE: Nights: Please contact pager [phone]. Subjective INTERVAL HPI: pt seen and examined, [...] Prophylaxis: VTE prophylaxis appropriate Disposition: Home with [facility] Plan of care discussed with: Patient SIGNATURE: Liza Barry MD PATIENT NAME: Rosa Beltran DATE: March 20, 2018 TIME: 12:58 PM PAGER/CONTACT #: [phone] etx [phone] CONSULT PROG Observed: 03/20/2018 Status: COMPLETED Source: ROUND TOP 10:45 AM CLINIC OTHER CAMPUS REPOSITORY HNO ID: [id number] Author: Checo Kay MD Service: Infectious Disease [...] METABOLIC PANL Collected: 03/20/2018 Status: F Source: ROUND TOP 5:00 AM CLINIC OTHER CAMPUS REPOSITORY TYPE CODE TESTS RESULT OUT OF REFERENCE UNITS RANGE LAB GLU 74-99 mg/dL Glucose 98 Result Comment: The [place] Diabetes Association (ADA) provides guidance for cutoff [...] Standards of Medical Care in Diabetes 2016, [place] [employer]. Diabetes Care. 2016.39(Suppl 1). LAB [...] GFR. Performed By: #### BMP, MG1 #### [facility] [address] [place] [address] MAGNESIUM Collected: 03/20/2018 Status: F Source: ROUND TOP 5:00 AM CLINIC OTHER CAMPUS REPOSITORY TYPE CODE TESTS RESULT OUT OF REFERENCE UNITS RANGE LAB MG 1.7-2.3 mg/dL Magnesium 1.8 Performed By: #### BMP, MG1 #### [facility] [address] [place] [address] PROTIME Collected: 03/20/2018 Status: F Source: ROUND TOP 5:00 AM [facility] OTHER [place] REPOSITORY TYPE CODE TESTS RESULT OUT OF RANGE REFERENCE UNITS LAB PSEC 9.7-13.0 sec High PT Sec 22.5 LAB INR 0.9-1.3 High PT INR 2.2 Result Comment: Vitamin K Antagonist (VKA) Therapeutic Range: INR 2 to 3 (Target INR of 2.5) Note: For patients treated with VKA drugs, such as warfarin, the [place] [employer]icians 2012 Guideline recommends [...] Chest 2012, 141:7S-47S Genevieve RA, et al. [facility] 2017, 70: 252-289 Performed By: #### PT #### [facility] [address] [place] [address] PROGRESS Observed: 03/19/2018 Status: COMPLETED Source: ROUND TOP 6:15 PM [facility] OTHER [place] REPOSITORY HNO ID: [id number] Author: Sydnee ParksRn) ELENA Bowles Service: (none) Author Type: Registered Nurse Type: Progress Notes Filed: 03/19/2018 6:16 PM Note Text: Nursing Progress Note Vital Operations Agent Assessment Note Patient Name: Rosa Beltran Patient Location: [place] [address]/[id number] Patient Vitals in the past 4 hrs: [...] RN WOUND Observed: 03/19/2018 Status: F Source: ROUND TOP CULTURE/STAIN 5:00 PM CLINIC OTHER CAMPUS REPOSITORY Sp. Request/Comment: - Eswab Specimen received [...] 2 F Performed By: #### WCUL #### [place] [address] NUTRITION Observed: 03/19/2018 Status: COMPLETED Source: ROUND TOP 2:03 PM CLINIC OTHER CAMPUS REPOSITORY HNO ID: [id number] Author: Deborah Colin Service: Nutrition Therapy Author [...] PM PROGRESS Observed: 03/19/2018 Status: COMPLETED Source: ROUND TOP 1:39 PM CLIN[facility] OTHER CAMPUS REPOSITORY HNO ID: [id number] Author: Gallito Clarke Service: Hospital Medicine Author Type: Physician Type: Progress Notes Filed: 03/19/2018 3:22 PM Note Text: HOSPITAL MEDICINE PROGRESS NOTE Name: Rosa Beltran SERVICE DATE: 03/19/2018 SERVICE TIME: 1:39 PM LOCATION / ROOM: [place] [id number] Hospital Medicine/Primary Attending: Gallito Clarke MD NIGHT COVERAGE BETWEEN 5.30P-7.30A Page [phone] ASSESSMENT AND PLAN Active Hospital Problems Diagnosis [...] mg tab(s) (COUMADIN) 3 mg ORAL DAILY Chandramohjackelyn Meenakshisundaram 3 mg at 03/18/182013 acetaminophen 1,000 mg tab(s) (TYLENOL) 1,000 mg ORAL q 6 H PRN Chandramohan Meenakshisundaram 1,000 mg at 03/19/18 0823 gabapentin 300 mg cap(s) (NEURONTIN) 300 mg ORAL BID Chandramohan Meenakshisundaram 300 mg at 03/19/18 0824 lisinopril 2.5 mg tab(s) (ZESTRIL, PRINIVIL) 2.5 mg ORAL DAILY [facility] 2.5 mg at 03/18/18 1023 therapeutic multivitamin with iron (THERAGRAN-M) 1 tablet ORAL DAILY Chandramohan Meenakshisundaram 1 tablet at 03/19/18 0824 aspirin, enteric coated 81 mg tab(s) (ASPIRIN, ENTERIC COATED) 81 mg ORAL DAILY Chandramohan Meenakshisundaram 81 mg at 03/18/18 1024 spironolactone 25 mg tab(s) (ALDACTONE) 25 mg ORAL BID Chandramohan Meenakshisundaram 25 mg at 03/18/[address] 20 mg tab(s) (PROTONIX) 20 mg ORAL DAILY Chandramohan Meenakshisundaram 20 mg at 03/19/18 0554 metOLAzone 2.5 mg tab(s) (ZAROXOLYN) 2.5 mg ORAL DAILY Chandramohan Meenakshisundaram 2.5 mg at 03/18/18 1024 levothyroxine 100 mcg tab(s) (SYNTHROID) 100 mcg ORAL DAILY (6 AM) Dicksonramohjackelyn Meenakshisundaram 100 mcg at 03/19/18 0554 furosemide 40 mg injection (LASIX) 40 mg INTRAVENOUS q 8 H Chandramohan Meenakshisundaram 40 mg at 03/19/18 0554 ondansetron orally disintegrating 4 mg tab(s) (ZOFRAN ODT) 4 mg ORAL q 6 H PRN Chandramohan Meenakshisundaram 4 mg at 03/19/18 0624 Or ondansetron (PF) 4 mg injection (ZOFRAN) 4 mg INTRAVENOUS q 6 H PRN Chandramohan Meenakshisundaram oxyCODONE-acetaminophen 5-325 mg 1 tablet (PERCOCET) 1 tablet ORAL q 8 H PRN Chandramohan Meenakshisundaram perflutren lipid microspheres 1.1 mg/mL 1.3 mL injection (DEFINITY) 1.3 mL INTRAVENOUS DIRECTED PRN Chandramohan Meenakshisundaram OBJECTIVE PHYSICAL EXAM: BP 123/76 Pulse [...] PT ED Observed: 03/19/2018 Status: COMPLETED Source: ROUND TOP 1:19 PM CLINIC OTHER CAMPUS REPOSITORY HNO ID: [id number] Author: Alisa Beltre (Pharmacist) Service: Pharmacy Author [...] THERAPY NT Observed: 03/19/2018 Status: COMPLETED Source: ROUND TOP 12:01 PM [facility] REPOSITORY HNO ID: [id number] Author: Carrie (Pt) Oumou Service: Physical Therapy Author Type: Physical Therapist Type: Therapy (PT/OT/Speech/Resp) Filed: 03/19/2018 12:12 PM Note Text: Physical Therapy Evaluation SERVICE DATE: 03/19/2018 SERVICE TIME: 1100 to 1132 ROOM: [place] [address] Recommended Discharge Disposition: Subacute/SNF Recommended Discharge Disposition [...] (generalized);Unsteadiness on feet Interventions Provided: Evaluation;Therapeutic Activity (62622);Gait Training (57208) $ Evaluation-Low (50577) Billed Units: 1 unit Therapeutic Activity (77082) Treatment Minutes: 9 1 unit Skilled Intervention(s): [...] deferred to minimize pt agitation) Gait Training (08408) Treatment Minutes: 4 Skilled Intervention(s): Instruction in [...] details for this therapy evaluation/treatment. SIGNATURE: Carrie Coello PT PATIENT NAME: Rosa Beltran DATE: March 19, 2018 TIME: 12:01 PM PAGER/CONTACT #: [phone] THERAPY NT Observed: 03/19/2018 Status: COMPLETED Source: ROUND TOP 9:36 AM CLINIC OTHER CAMPUS REPOSITORY HNO ID: [id number] Author: Carrie (Pt) Oumou Service: Physical Therapy Author Type: Physical Therapist Type: Therapy (PT/OT/Speech/Resp) Filed: 03/19/2018 1:16 PM Note Text: PHYSICAL THERAPY MISSED VISIT SERVICE DATE: 03/19/2018 SERVICE TIME: 1100 to 1132 ROOM: [place] [address] Attempted Evaluation. 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 Pt was active with [facility], [facility]. Will need new F2F upon dc. CM to continue to follow and support. SIGNATURE: MERY Abraham PATIENT NAME: Rosa Beltran DATE: March 19, 2018 TIME: 8:58 AM PAGER/CONTACT #: [phone] BASIC METABOLIC PANL Collected: 03/19/2018 Status: F Source: ROUND TOP 4:53 AM [facility] REPOSITORY TYPE CODE TESTS RESULT OUT OF REFERENCE UNITS RANGE LAB GLU 74-99 mg/dL Glucose 76 Result Comment: The [place] Diabetes [employer] (ADA) provides guidance for cutoff [...] Standards of Medical Care in Diabetes 2016, [place] [employer]. Diabetes Care. 2016.39(Suppl 1). LAB [...] has been calibrated to be traceable to IDOR. An eGFR <60 mL/min/1.73m2 for >3 months is consistent with chronic kidney disease. Refer to KDOQI guidelines for clinical interpretation. In patients with unstable renal function, e.g. those with acute kidney injury, the eGFR may not accurately reflect actual GFR. Performed By: #### BMP, CRP, MG1 #### [facility] [address] [place] [address] #### WSR #### [place] [phone] C-REACTIVE PROTEIN Collected: 03/19/2018 Status: F Source: ROUND TOP 4:53 AM [facility] OTHER CAMPUS REPOSITORY TYPE CODE TESTS RESULT OUT OF REFERENCE UNITS RANGE LAB CRP <0.9 mg/dL High C-Reactive 6.0 Protein Performed By: #### BMP, CRP, MG1 #### [place] [address] #### WSR #### [place] [phone] MAGNESIUM Collected: 03/19/2018 Status: F Source: ROUND TOP 4:53 AM [facility] OTHER [place] REPOSITORY TYPE CODE TESTS RESULT OUT OF REFERENCE UNITS RANGE LAB MG 1.7-2.3 mg/dL Magnesium 1.8 Performed By: #### BMP, CRP, MG1 #### [facility] [address] [place] [address] #### WSR #### [place] [id number] [place] [phone] SED RATE WESTERGREN Collected: 03/19/2018 Status: F Source: ROUND TOP 4:53 AM [facility] OTHER [place] REPOSITORY TYPE CODE TESTS RESULT OUT OF REFERENCE UNITS RANGE LAB WSR 0-20 mm/hr Sed Rate High Westergren 52 Performed By: #### BMP, CRP, MG1 #### [facility] [address] [place] [address] #### WSR #### [facility] [address] [place], [place] [address] PROTIME Collected: 03/19/2018 Status: F Source: ROUND TOP 4:53 AM [facility] REPOSITORY TYPE CODE TESTS RESULT OUT OF RANGE REFERENCE UNITS LAB PSEC 9.7-13.0 sec High PT Sec 24.1 LAB INR 0.9-1.3 High PT INR 2.4 Result Comment: Vitamin K Antagonist (VKA) Therapeutic Range: INR 2 to 3 (Target INR of 2.5) Note: For patients treated with VKA drugs, such as warfarin, the [place] [employer]icians 2012 Guideline recommends [...] Chest 2012, 141:7S-47S Genevieve RA, et al. [facility] 2017, 70: 252-289 Performed By: #### PT #### [facility] [address] [place] [address] PROGRESS Observed: 03/18/2018 Status: COMPLETED Source: ROUND TOP 4:45 PM [facility] REPOSITORY HNO ID: [id number] Author: Sydnee (Rn) ELENA Bowles Service: (none) Author Type: Registered Nurse Type: Progress Notes Filed: 03/18/2018 4:46 PM Note Text: Nursing Progress Note Vital Operations Agent Assessment Note Patient Name: Rosa Beltran Patient Location: [facility]0205/[id number] Patient Vitals in the past 4 hrs: [...] NURSING PROG Observed: 03/18/2018 Status: COMPLETED Source: ROUND TOP 4:29 PM CLINIC OTHER CAMPUS REPOSITORY HNO ID: [id number] Author: Sydnee (Rn) ELENA Bowles Service: (none) Author Type: Registered Nurse Type: Nursing Progress Note Filed: 03/18/2018 4:43 PM Note Text: Nursing Progress Note Patient Name: Rosa Beltran Patient Location: [place] [address]/[id number] Daily Note: 1300. Paged Dr. Clarke to [...] Hour. This note was completed by: Sydnee Bowlse RN PROGRESS Observed: 03/18/2018 Status: COMPLETED Source: ROUND TOP 10:58 AM CLINIC OTHER CAMPUS REPOSITORY HNO ID: [id number] Author: Gallito Clarke Service: Hospital Medicine Author Type: Physician Type: Progress Notes Filed: 03/18/2018 11:08 AM Note Text: HOSPITAL MEDICINE PROGRESS NOTE Name: Rosa Beltran SERVICE DATE: 03/18/2018 SERVICE TIME: 10:58 AM LOCATION / ROOM: [place] [address]/[id number] Hospital Medicine/Primary Attending: Gallito Clarke MD NIGHT COVERAGE BETWEEN 5.30P-7.30A Page [phone] ASSESSMENT AND PLAN Active Hospital Problems Diagnosis [...] 0.25% (DAKINS HALF-STRENGTH) IRRIGATION ONCE Jessica (Res) Yeager warfarin 3 mg tab(s) (COUMADIN) 3 mg ORAL DAILY Karishma Bashirm 3 mg at 03/17/18 2135 acetaminophen 1,000 mg tab(s) (TYLENOL) 1,000 mg ORAL q 6 H PRN [facility] Meenakshisundaram 1,000 mg at 03/18/18 0608 gabapentin 300 mg cap(s) (NEURONTIN) 300 mg ORAL BID [facility] Meenakshisundaram 300 mg at 03/18/18 1024 lisinopril 2.5 mg tab(s) (ZESTRIL, PRINIVIL) 2.5 mg ORAL DAILY [facility] Meenakshisundaram 2.5 mg at 03/18/18 1023 metoprolol tartrate (short acting) 12.5 mg tab(s) (LOPRESSOR) 12.5 mg ORAL BID [facility] Meenakshisundaram 12.5 mg at 03/18/18 1024 therapeutic multivitamin with iron (THERAGRAN-M) 1 tablet ORAL DAILY [facility] Meenakshisundaram 1 tablet at 03/18/18 1023 aspirin, enteric coated 81 mg tab(s) (ASPIRIN, ENTERIC COATED) 81 mg ORAL DAILY [facility] Meenakshisundaram 81 mg at 03/18/18 1024 spironolactone 25 mg tab(s) (ALDACTONE) 25 mg ORAL BID [facility] Meenakshisundaram 25 mg at 03/18/[address] 20 mg tab(s) (PROTONIX) 20 mg ORAL DAILY [facility] Meenakshisundaram 20 mg at 03/18/18 0609 metOLAzone 2.5 mg tab(s) (ZAROXOLYN) 2.5 mg ORAL DAILY [facility] Meenakshisundaram 2.5 mg at 03/18/18 1024 levothyroxine 100 mcg tab(s) (SYNTHROID) 100 mcg ORAL DAILY (6 AM) [facility] Meenakshisundaram 100 mcg at 03/18/18 0609 furosemide 40 mg injection (LASIX) 40 mg INTRAVENOUS q 8 H [facility] Meenakshisundaram 40 mg at 03/18/18 0608 ondansetron orally disintegrating 4 mg tab(s) (ZOFRAN ODT) 4 mg ORAL q 6 H [facility]N [facility] 4 mg at 03/18/18 0609 Or ondansetron (PF) 4 mg injection (ZOFRAN) 4 mg INTRAVENOUS q 6 H PRN Chandramohan Meenakshisundaram piperacillin-tazobactam 3.375 g in dextrose (iso-osmotic) [...] AM CONSULT Observed: 03/18/2018 Status: COMPLETED Source: ROUND TOP 9:55 AM CLINIC OTHER CAMPUS REPOSITORY HNO ID: [id number] Author: Jessica Yeager Service: Podiatry Author Type: [...] antibiotics. Pt has been seen in the [facility] and states she also has [facility] assist with dressing changes. Pt denies [...] 10/08/2016 - COPD (chronic obstructive pulmonary disease) ([facility]) - Depressive disorder 12/29/2016 - Disruption of [...] - TOTAL KNEE REPLACEMENT Right 2003 [facility] Gen. - TOTAL KNEE REPLACEMENT Left 2004 [facility] Gen. No family history on [...] PAGER: CONSULT Observed: 03/18/2018 Status: COMPLETED Source: ROUND TOP 8:06 AM CLINIC OTHER CAMPUS REPOSITORY HNO ID: [id number] Author: Mariajose Roque Service: Infectious Disease Author [...] with hypoxia (HCC) 09/30/2017 - Atrial fibrillation ([facility]) - CAD (coronary artery disease) Dr. Brenda [...] 10/08/2016 - COPD (chronic obstructive pulmonary disease) ([facility]) - Depressive disorder 12/29/2016 - Disruption of surgical wound 09/2015 Right tibia - Dorsalgia 12/29/2016 - Dyslipidemia - Gastric bypass status for obesity 12/29/2016 - Gastroesophageal reflux disease without esophagitis 10/08/2016 - HTN (hypertension) - Muscular weakness 12/29/2016 - Primary osteoarthritis involving multiple joints 12/29/2016 - Pure hypercholesterolemia - Rheumatoid arthritis ([facility]) 2007 - Sleep apnea - Stented coronary artery 12/29/2016 PAST SURGICAL HISTORY Procedure Laterality Date - CC CORONARY STENT 11/20/2012 [facility]AD - CC CORONARY STENT 12/20/2014 [facility], Cfx - SECTION HX - COLONOSCOPY 06/10/2017 [facility] [place] [facility], Nonspecific cecal ulcer - GASTRIC BYPASS HX 1986 - HERNIA REPAIR HX 1987; 1989 - PAST SURGICAL HISTORY OF Right 09/2015 right tibia fracture [facility] - PAST SURGICAL HISTORY OF Right 01/20/2016 Removal of hardware, right tibia - TOTAL KNEE REPLACEMENT Right 2003 [facility] Gen. - TOTAL KNEE REPLACEMENT Left 2004 [facility] Gen. No family history on [...] METABOLIC PANL Collected: 03/18/2018 Status: F Source: ROUND TOP 4:49 AM CLINIC OTHER CAMPUS REPOSITORY TYPE CODE TESTS RESULT OUT OF REFERENCE UNITS RANGE LAB GLU 74-99 mg/dL High Glucose 102 Result Comment: The [place] [employer] Association (ADA) provides guidance for cutoff [...] Standards of Medical Care in Diabetes 2016, [place] [employer]. Diabetes Care. 2016.39(Suppl 1). LAB [...] has been calibrated to be traceable to IDOR. An eGFR <60 mL/min/1.73m2 for >3 months is consistent with chronic kidney disease. Refer to KDOQI guidelines for clinical interpretation. In patients with unstable renal function, e.g. those with acute kidney injury, the eGFR may not accurately reflect actual GFR. Performed By: #### GRETCHEN, MG1, CBC #### [facility] [address] [place] [address] MAGNESIUM Collected: 03/18/2018 Status: F Source: ROUND TOP 4:49 AM [facility] OTHER CAMPUS REPOSITORY TYPE CODE TESTS RESULT OUT OF REFERENCE UNITS RANGE LAB MG 1.7-2.3 mg/dL Magnesium 1.7 Performed By: #### GRETCHEN, MG1, CBC #### [facility] [address] [place] [address] CBC Collected: 03/18/2018 Status: F Source: ROUND TOP 4:49 AM [facility] OTHER [place] REPOSITORY TYPE CODE TESTS RESULT OUT OF [...] Performed By: #### BMP, MG1, CBC #### [facility] [address] [place] [address] ULTRA-SENSITIVE CRP Collected: 03/18/2018 Status: F Source: ROUND TOP 4:49 AM [facility] OTHER [place] REPOSITORY TYPE CODE TESTS RESULT OUT OF [...] for Disease Control and Prevention and the [place] [employer]. Circulation 2003;107:499-511. Performed By: #### HSCRP, WSR #### [facility] [address] [place], [place] [address] SED RATE WESTERGREN Collected: 03/18/2018 Status: F Source: ROUND TOP 4:49 AM CLINIC OTHER CAMPUS REPOSITORY TYPE CODE TESTS RESULT OUT OF REFERENCE UNITS RANGE LAB WSR 0-20 mm/hr Sed Rate High Westergren 52 Performed By: #### HSCRP, WSR #### [facility] [address] [place], [place] [address] PROTIME Collected: 03/18/2018 Status: F Source: ROUND TOP 4:49 AM [facility] OTHER CAMPUS REPOSITORY TYPE CODE TESTS RESULT OUT OF RANGE REFERENCE UNITS LAB PSEC 9.7-13.0 sec High PT Sec 22.9 LAB INR 0.9-1.3 High PT INR 2.3 Result Comment: Vitamin K Antagonist (VKA) Therapeutic Range: INR 2 to 3 (Target INR of 2.5) Note: For patients treated with VKA drugs, such as warfarin, the [place] [employer] 2012 Guideline recommends [...] Chest 2012, 141:7S-47S Genevieve ESTRADA et al. [facility] 2017, 70: 252-289 Performed By: #### PT #### [facility] [address] [place] [address] PROGRESS Observed: 03/17/2018 Status: COMPLETED Source: ROUND TOP 8:41 PM CLINIC OTHER CAMPUS REPOSITORY O ID: [id number] Author: Quiana Zavala (Pharmacist) Service: Pharmacy Author [...] any questions, please contact inpatient pharmacy at [phone]. Age: [age] year old Allergies: ALLERGIES No [...] ED NOTE Observed: 03/17/2018 Status: COMPLETED Source: ROUND TOP 7:50 PM CLINIC OTHER CAMPUS REPOSITORY HNO ID: [id number] Author: Echo (Rn) Aviva Yeager RN Service: (none) Author Type: Registered Nurse Type: ED Notes Filed: 03/17/2018 7:51 PM Note Text: ED NOTE Observed: 03/17/2018 Status: COMPLETED Source: ROUND TOP 7:37 PM CLINIC OTHER CAMPUS REPOSITORY HNO ID: [id number] Author: Echo ParksRn) Aviva Yeager, ELENA Service: (none) Author Type: Registered Nurse Type: ED Notes Filed: 03/17/2018 7:39 PM Note Text: talked with pharmacy regarding infiltration of zosyn, nothing noted in police to be uses. Area not red or warm no irritation or tenderness URINALYSIS Collected: 03/17/2018 Status: F Source: ROUND TOP 7:00 PM CLINIC OTHER CAMPUS REPOSITORY TYPE CODE TESTS RESULT OUT OF RANGE REFERENCE UNITS LAB UCOL Yellow Color Yellow LAB [facility] Clear Clarity Clear LAB UGLUC Negative mg/dL Glucose, Urine Negative LAB UBIL Negative Bilirubin, Urine Negative LAB UKET Negative Ketones, Urine Negative LAB [facility] 1.001-1.029 Specific [place], Ur 1.020 LAB UHGB Negative Hemoglobin/Blood, Negative Ur LAB UPH 5.0-8.0 pH 6.0 LAB UPROT Negative mg/dL Protein, Abnormal Urine Trace Alert LAB UUROB 0.2-1.0 Urobilinogen 0.2 LAB UNITR Negative Nitrites Negative LAB ULKEST Negative Leukest Negative Performed By: #### UA, UAMIC #### [facility] [address] [facility] [phone] URINE MICROSCOPIC Collected: 03/17/2018 Status: F Source: ROUND TOP (FOR LAB USE ONLY) 7:00 PM CLINIC OTHER CAMPUS REPOSITORY TYPE CODE TESTS RESULT OUT OF REFERENCE UNITS RANGE LAB UWBC 0-5 /HPF WBC 0-5 LAB URBC 0-3 /HPF RBC 0-3 LAB UCAST 0 /LPF Cast SEE COMMENT Result Comment: 0 LAB UBACT 0 /HPF Abnormal Bacteria Alert Occasional LAB UEPI /HPF SEE Epithelial Cells COMMENT Result Comment: 0-5 Squamous Epithelial Cells Performed By: #### UA, UAMIC #### [facility] [address] [facility] [phone] HISTORY PHYSICAL Observed: 03/17/2018 Status: COMPLETED Source: ROUND TOP 6:48 PM CLINIC OTHER CAMPUS REPOSITORY HNO ID: [id number] Author: Karishma Cleary Service: General Internal Medicine Author Type: Physician Type: HANDP Filed: 03/18/2018 12:04 AM Note Text: DEPARTMENT OF HOSPITAL MEDICINE HISTORY AND PHYSICAL EXAM SERVICE DATE: 03/17/2018 SERVICE TIME: 6.20 PM Primary Care Physician: Mani Newman MD NIGHT AND WEEKEND COVERAGE: Nights: Please contact pager [phone]. Subjective CHIEF COMPLAINT: worsening of leg ulcers [...] were noted to be 183/81 mm Hg, NH- 60/min, Temp- 98.4, RR- 18/min, SPO2 98 [...] CAD (coronary artery disease) Dr. Brenda Awan [facility], [employer] element KIMMY LAD 11/20/2012, Stress [...] 10/08/2016 - COPD (chronic obstructive pulmonary disease) ([facility]) - Depressive disorder 12/29/2016 - Disruption of surgical wound 09/2015 Right tibia - Dorsalgia 12/29/2016 - Dyslipidemia - Gastric bypass status for obesity 12/29/2016 - Gastroesophageal reflux disease without esophagitis 10/08/2016 - HTN (hypertension) - Muscular weakness 12/29/2016 - Primary osteoarthritis involving multiple joints 12/29/2016 - Pure hypercholesterolemia - Rheumatoid arthritis ([facility]LY [facility]) 2007 - Sleep apnea - Stented coronary artery 12/29/2016 PAST SURGICAL HISTORY Procedure Laterality Date - CC CORONARY STENT 11/20/2012 KIMMY LAD - CC CORONARY STENT 12/20/2014 KIMMY, Cfx - SECTION HX - COLONOSCOPY 06/10/2017 [facility], Nonspecific cecal ulcer - GASTRIC BYPASS HX 1986 - HERNIA REPAIR HX 1987; 1989 - PAST SURGICAL HISTORY OF Right 09/2015 right tibia fracture ORIF - PAST SURGICAL HISTORY OF Right 01/20/2016 Removal of hardware, right tibia - TOTAL KNEE REPLACEMENT Right 2003 [facility] Gen. - TOTAL KNEE REPLACEMENT Left 2004 [facility] Gen. 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 Home Health Care Agency: [facility]; ; Active. Equipment Prior to Admission: Oxygen 3 liters per minute [facility] supplies Provider [facility] Has the Patient Been in a Care Home Facility in the Past 30 days? No [...] these needs: Pt is from home with [facility] nursing services and plans to resume services [...] 0 I feel financially burdened by my sje-jy-ejjyhy expenses for my prescription medication: Disagree completely [...] would like to resume nursing services with [facility]/ [employer]ITION PLANS Home Home Care SW met with pt and lngkwkrf-am-qok bedside. Pt and tciaylwl-qa-ngw are familiar with SW from previous hospitalization. Explained role again. Pt is from home and noted that although she and her yipretoa-uz-bvs are in separate units, they live in the same house. Pt reported she has an intercom system and can communicate with her vpkgntzt-mk-rdk. Pt confirmed she is active with [facility] and wants to resume services upon d/c. Haltlreh-ih-rci to transport. SIGNATURE: NAILA AMEZCUA PATIENT NAME: Rosa Beltran DATE: March 17, 2018 TIME: 6:02 PM PAGER/CONTACT #: [phone] ED NOTE Observed: 03/17/2018 Status: COMPLETED Source: ROUND TOP 6:00 PM CLINIC OTHER CAMPUS REPOSITORY HNO ID: [id number] Author: Echo (Rn) Aviva Yeager RN Service: (none) Author Type: Registered Nurse Type: ED Notes Filed: 03/17/2018 7:51 PM Note Text: Both heels floated again XR ANKLE 3V AP/LAT/OBL Observed: 03/17/2018 Status: F Source: ROUND TOP RT 4:06 PM CLINIC OTHER CAMPUS REPOSITORY [...] trauma, post-operative and degenerative change, as described. Automatic Grinder Operator: DWIGHT Transcribe Date/Time: Mar 17 2018 4:38P Dictated by : KATHIE CAMERON MD This examination was interpreted and the report reviewed and electronically signed by: KATHIE CAMERON MD on Mar 17 2018 4:43PM EST [id number] XR CHEST 2V FRONTAL/LAT Observed: 03/17/2018 Status: F Source: ROUND TOP 4:06 PM CLINIC OTHER CAMPUS REPOSITORY * [...] is unremarkable. 4. Other: Bony structures unremarkable. Automatic Grinder Operator: DWIGHT Transcribe Date/Time: Mar 17 2018 4:36P Dictated by : HAO YORK DO This examination was interpreted and the report reviewed and electronically signed by: HAO YORK DO on Mar 17 2018 4:46PM EST [id number] ED NOTE Observed: 03/17/2018 Status: COMPLETED Source: ROUND TOP 3:48 PM [facility] OTHER CAMPUS REPOSITORY HNO ID: [id number] Author: Jasmeet (Medic) Faby Beltran Service: (none) Author Type: Meeting/Event Planner and Resume Writer Type: ED Notes Filed: 03/17/2018 3:48 PM Note Text: Blood cultures drawn and sent. One set. CBC AND DIFFERENTIAL Collected: 03/17/2018 Status: F Source: ROUND TOP 3:40 PM [facility] OTHER CAMPUS REPOSITORY TYPE CODE TESTS RESULT [...] k/uL Abs Lymph 1.80 LAB AMONO % Bowman% 9.0 LAB AAMONO <0.87 k/uL Abs Bowman 0.61 LAB AEOS % Eosin% 2.7 LAB AAEOS <0.46 k/uL Abs Eosin 0.18 LAB ABASO % Baso% 0.4 LAB AABASO <0.11 k/uL Abs Baso 0.03 Performed By: #### CBCDIF, SLACT, CMP #### [facility] [address] [place] [address] SEPSIS LACTATE Collected: 03/17/2018 Status: F Source: ROUND TOP 3:40 PM CLINIC OTHER CAMPUS REPOSITORY TYPE CODE TESTS RESULT OUT OF REFERENCE UNITS RANGE LAB SLACTT 0.5-2.0 mmol/L Sepsis 1.1 Lactate Performed By: #### CBCDIF, SLACT, CMP #### [facility] [address] [place] [address] COMP METABOLIC PANEL Collected: 03/17/2018 Status: F Source: ROUND TOP 3:40 PM CLINIC OTHER CAMPUS REPOSITORY TYPE [...] mg/dL Glucose High 115 Result Comment: The [place] [employer] Association (ADA) provides guidance for cutoff [...] Standards of Medical Care in Diabetes 2016, [place] [employer]. Diabetes Care. 2016.39(Suppl 1). LAB [...] Performed By: #### CBCDIF, SLACT, CMP #### [facility] [address] [facility] [phone] NT PRO BNP Collected: 03/17/2018 Status: F Source: ROUND TOP 3:40 PM CLINIC OTHER CAMPUS REPOSITORY TYPE CODE TESTS RESULT OUT OF REFERENCE UNITS RANGE LAB PBNP <450 pg/mL High PRO B Natr 2023 Peptide Performed By: #### NTBNP #### [facility] [address] [place] [address] PROTIME Collected: 03/17/2018 Status: F Source: ROUND TOP 3:40 PM [facility] REPOSITORY TYPE CODE TESTS RESULT OUT OF RANGE REFERENCE UNITS LAB PSEC 9.7-13.0 sec High PT Sec 22.8 LAB INR 0.9-1.3 High PT INR 2.3 Result Comment: Vitamin K Antagonist (VKA) Therapeutic Range: INR 2 to 3 (Target INR of 2.5) Note: For patients treated with VKA drugs, such as warfarin, the [place] [employer]icians 2012 Guideline recommends [...] Chest 2012, 141:7S-47S Genevieve ESTRADA et al. [facility] 2017, 70: 252-289 Performed By: #### PT, PTT #### [facility] [address] [place] [address] APTT Collected: 03/17/2018 Status: F Source: ROUND TOP 3:40 PM [facility] REPOSITORY TYPE CODE TESTS RESULT OUT [...] laboratory APTT reagent in use throughout the [facility]. Performed By: #### PT, PTT #### [facility] [address] [facility] [phone] Observed: 03/17/2018 Status: F Source: ROUND TOP BLOOD CULTURE 3:40 PM [facility] REPOSITORY Sp. Request/Comment: - The blood culture bottles are underfilled. Adding volume lower or higher than the 8 to 10 mL per bottle, which is the manufacturers recommended volume, may adversely affect the re covery and/or detection of organisms. 11.8ML Culture Result - No growth 5 days Performed By: #### BLCUL #### [facility] [address] [address] Observed: 03/17/2018 Status: F Source: ROUND TOP BLOOD CULTURE 3:40 PM [facility] REPOSITORY Culture Result - No growth 5 days Performed By: #### BLCUL #### [facility] [address] [address] ED NOTE Observed: 03/17/2018 Status: COMPLETED Source: ROUND TOP 3:23 PM [facility] REPOSITORY HNO ID: [id number] Author: Roxann ParksRn) ELENA Kimbrough Service: (none) Author Type: Registered Nurse Type: ED Notes Filed: 03/17/2018 3:23 PM Note Text: Patient presents to ED with leg pain swelling infection ED PROV NOTE Observed: 03/17/2018 Status: COMPLETED Source: ROUND TOP 3:14 PM [facility] REPOSITORY HNO ID: [id number] Author: Karan Diallo DO Service: Emergency Medicine [...] with hypoxia (HCC) 09/30/2017 - Atrial fibrillation ([facility]) - CAD (coronary artery disease) Dr. Brenda [...] 10/08/2016 - COPD (chronic obstructive pulmonary disease) ([facility]) - Depressive disorder 12/29/2016 - Disruption of surgical wound 09/2015 Right tibia - Dorsalgia 12/29/2016 - Dyslipidemia - Gastric bypass status for obesity 12/29/2016 - Gastroesophageal reflux disease without esophagitis 10/08/2016 - HTN (hypertension) - Muscular weakness 12/29/2016 - Primary osteoarthritis involving multiple joints 12/29/2016 - Pure hypercholesterolemia - Rheumatoid arthritis ([facility]) 2007 - Sleep apnea - Stented coronary artery 12/29/2016 PAST SURGICAL HISTORY Procedure Laterality Date - CC CORONARY STENT 11/20/2012 KIMMY LAD - CC CORONARY STENT 12/20/2014 KIMMY, Cfx - SECTION HX - COLONOSCOPY 06/10/2017 [facility], Nonspecific cecal ulcer - GASTRIC BYPASS HX 1986 - HERNIA REPAIR HX 1987; 1989 - PAST SURGICAL HISTORY OF Right 09/2015 right tibia fracture ORIF - PAST SURGICAL HISTORY OF Right 01/20/2016 Removal of hardware, right tibia - TOTAL KNEE REPLACEMENT Right 2003 [facility] Gen. - TOTAL KNEE REPLACEMENT Left 2004 [facility] Gen. No family history on [...] vital signs reviewed Triage note reviewed Patient's jgkfvtqa-zd-uxw provides elements of past medical history and [...] admit. This note was partially generated using [employer] voice recognition system, and there may be some incorrect words, spellings, and punctuation that were not noted in checking the note before saving ED Course / Clinical Impression Clinical Impressions as of Mar 17 1656 Wound infection Plan SIGNATURE: Sachin Medellin PA-C Sachin (Saeed) Lacie 03/17/18 1740 Sachin Avendano) Lacie 03/17/18 1741 Attending Note I have personally performed a face to face assessment of the patient and have reviewed the PA/GRE INSTRUCTOR note. My [place] findings include: History is [...] Time: 6:07 PM Karan Diallo DO 03/17/18 181 PROGRESS Observed: 03/17/2018 Status: COMPLETED Source: ROUND TOP 2:15 PM CLINIC OTHER CAMPUS REPOSITORY HNO ID: [id number] Author: Luis Rodriguez) Carla Service: (none) Author Type: Nurse Practitioner Type: Progress Notes Filed: 04/03/2018 5:31 AM Note Text: DATE OF VISIT: 03/17/2018 REASON FOR VISIT: Non-healing lower extremity wound. HISTORY OF PRESENT ILLNESS: Rosa Beltran is a 81 year old female who presents to the [facility] for further [...] followed by Dr. Jaskaran Chance at the [facility]. It was felt that her home support system was inadequate and that she may not have the resources in her home environment to appropriately care for her needs. In this regard, a social work lecturer consultation had been recommended on several occassions, but patient apparently insisted on remaining in her home environment despite that there was thought that is may be less than optimal. The patient is here at the [facility] for a second opinion [...] hypothyroidism - Acute respiratory failure with hypoxia ([facility]) 09/30/2017 - Atrial fibrillation ([facility]) - CAD (coronary artery disease) Dr. Brenda [...] 10/08/2016 - COPD (chronic obstructive pulmonary disease) ([facility]) - Depressive disorder 12/29/2016 - Disruption of [...] BYPASS HX 1986 - HERNIA REPAIR HX 1988; 1989 - PAST SURGICAL HISTORY OF Right 09/2015 right tibia fracture ORIF - PAST SURGICAL HISTORY OF Right 01/20/2016 Removal of hardware, right tibia - TOTAL KNEE REPLACEMENT Right 2003 [facility] Gen. - TOTAL KNEE REPLACEMENT Left 2004 [facility] Gen. MEDICATIONS ergocalciferol, vitamin D2, [...] Rubor of Dependency: Negative (Y) Positive (N) [place] Examination: Comments: Measurements: Right Calf: 57 cm Right Ankle: 37 cm Left Calf: 50.5 cm Left Ankle: 33.5 cm Neuro: Alert AND oriented x3, PROCESS IMPROVEMENT ANALYST II-XII grossly intact, reflexes 2+ and symmetric, [...] No acute fracture or bony destruction. ? Automatic Grinder Operator: DWIGHT ? Transcribe Date/Time: Oct 14 2017 [...] No acute fracture or bony destruction. ? Automatic Grinder Operator: DWIGHT ? Transcribe Date/Time: Oct 14 2017 [...] and Edge attached to base Periwound Tissue: [place], dry and intact, No fluctuance, induration or [...] and Edge attached to base Periwound Tissue: [place], dry and intact, No fluctuance, induration or [...] -- Week 5 Wound Bed (Post-debridement): 100% [place] % of Healthy tissue: Undermining: No Tunneling: No Tendon/bone exposed: NO Wound Edge/Margins: Well-defined wound edges and Edge attached to base Periwound Tissue: [place], dry and intact, No fluctuance, induration or [...] Systemis Rx: Begin: Doxycycline to prevent reoccurant [id number] mg PO BID x 14 days then [...] worsening symptoms. Luis Simons CNP Charge Capture: [id number] CNOV Observed: 03/17/2018 Status: COMPLETED Source: ROUND TOP 2:15 PM [facility] OTHER CAMPUS REPOSITORY Office Visit ([facility]MR) ROSA BELTRAN ([id number]) 1935 F Date Time Provider Department 03/17/18 2:15 PM LUIS SIMONS, (LOI) [facility]MR During your visit today, we recorded the following information about you: Temperature Pulse Respiration Blood pressure 98.9 degrees 62/minute 17/minute 122/65 Luis Simons APRN.CNP 04/03/2018 5:31 AM Signed DATE OF VISIT: 03/17/2018 REASON FOR VISIT: Non-healing lower extremity wound. HISTORY OF PRESENT ILLNESS: Rosa Beltran is a 81 year old female who presents to the [facility] for further [...] followed by Dr. Jaskaran Chance at the [facility]. It was felt that her home support system was inadequate and that she may not have the resources in her home environment to appropriately care for her needs. In this regard, a social work lecturer consultation had been recommended on several occassions, but patient apparently insisted on remaining in her home environment despite that there was thought that is may be less than optimal. The patient is here at the [facility] for a second opinion [...] 10/08/2016 - COPD (chronic obstructive pulmonary disease) ([facility]) - Depressive disorder 12/29/2016 - Disruption of surgical wound 09/2015 Right tibia - Dorsalgia 12/29/2016 - Dyslipidemia - Gastric bypass status for obesity 12/29/2016 - Gastroesophageal reflux disease without esophagitis 10/08/2016 - HTN (hypertension) - Muscular weakness 12/29/2016 - Primary osteoarthritis involving multiple joints 12/29/2016 - Pure hypercholesterolemia - Rheumatoid arthritis ([facility]) 2007 - Sleep apnea - Stented coronary artery 12/29/2016 PAST SURGICAL HISTORY Procedure Laterality Date - CC CORONARY STENT 11/20/2012 KIMMY LAD - CC CORONARY STENT 12/20/2014 KIMMY, Cfx - SECTION HX - COLONOSCOPY 06/10/2017 [facility], Nonspecific cecal ulcer - GASTRIC BYPASS HX 1986 - HERNIA REPAIR HX 1987; 1989 - PAST SURGICAL HISTORY OF Right 09/2015 right tibia fracture ORIF - PAST SURGICAL HISTORY OF Right 01/20/2016 Removal of hardware, right tibia - TOTAL KNEE REPLACEMENT Right 2003 [facility] Gen. - TOTAL KNEE REPLACEMENT Left 2004 [facility] Gen. MEDICATIONS ergocalciferol, vitamin D2, [...] Rubor of Dependency: Negative (Y) Positive (N) [place] Examination: Comments: Measurements: Right Calf: 57 cm Right Ankle: 37 cm Left Calf: 50.5 cm Left Ankle: 33.5 cm Neuro: Alert AND oriented x3, PROCESS IMPROVEMENT ANALYST II-XII grossly intact, reflexes 2+ and symmetric, [...] No acute fracture or bony destruction. ? Automatic Grinder Operator: DWIGHT ? Transcribe Date/Time: Oct 14 2017 [...] No acute fracture or bony destruction. ? Automatic Grinder Operator: DWIGHT ? Transcribe Date/Time: Oct 14 2017 [...] and Edge attached to base Periwound Tissue: [place], dry and intact, No fluctuance, induration or [...] and Edge attached to base Periwound Tissue: [place], dry and intact, No fluctuance, induration or [...] -- Week 5 Wound Bed (Post-debridement): 100% [place] % of Healthy tissue: Undermining: No Tunneling: No Tendon/bone exposed: NO Wound Edge/Margins: Well-defined wound edges and Edge attached to base Periwound Tissue: [place], dry and intact, No fluctuance, induration or [...] Systemis Rx: Begin: Doxycycline to prevent reoccurant [id number] mg PO BID x 14 days then [...] worsening symptoms. Luis Simons CNP Charge Capture: [id number] Tiffanie Humphrey, RN, RN 03/17/2018 2:51 PM Addendum Nursing [...] Leg ulcer, right, with fat layer exposed ([facility]) *INVALID FOR* Other instructions from your clinician: Patient sent to the Emergency Room for evaluation Visit Notes: >> Tiffanie (Rn) ELENA Humphrey TueMarch 17, 2018 2:33 PM Status: Addendum [...] 04/03/18 HOSP Observed: 03/17/2018 Status: COMPLETED Source: ROUND TOP 12:00 AM CLINIC OTHER CAMPUS REPOSITORY Patient:Rosa Beltran MRN: <[id number]> Height:5' 4(1.626 m) Weight:206 lb 2.1 oz [...] lipid microspheres 1.1 mg/mL 1.3 mL injection ([employer]) Problem List: Gastroesophageal reflux disease without esophagitis [...] Leg ulcer, right, with fat layer exposed ([facility]) [L97.912] Allergies: No Known Allergies Date Verified:03/22/18 Lab Values Lab Value Units Date High Low POTA* 4.6 mmol/L 03/21/2018 5.1 3.7 MINH* 34.5 % 03/22/2018 46.0 36.0 Progress Notes ([facility]): SELENA Treviño, CT 03/20/2018 12:17 PM Sign at close [...] 10/08/2016 - COPD (chronic obstructive pulmonary disease) ([facility]) - Depressive disorder 12/29/2016 - Disruption of surgical wound 09/2015 Right tibia - Dorsalgia 12/29/2016 - Dyslipidemia - Gastric bypass status for obesity 12/29/2016 - Gastroesophageal reflux disease without esophagitis 10/08/2016 - HTN (hypertension) - Muscular weakness 12/29/2016 - Primary osteoarthritis involving multiple joints 12/29/2016 - Pure hypercholesterolemia - Rheumatoid arthritis ([facility]) 2007 - Sleep apnea - Stented coronary [...] - TOTAL KNEE REPLACEMENT Right 2003 [facility] Gen. - TOTAL KNEE REPLACEMENT Left 2004 [facility] Gen. No family history on [...] vital signs reviewed Triage note reviewed Patient's uvrmkarp-xk-jtl provides elements of past medical history and [...] admit. This note was partially generated using [employer] voice recognition system, and there may be some incorrect words, spellings, and punctuation that were not noted in checking the note before saving ED Course / Clinical Impression Clinical Impressions as of Mar 17 1656 Wound infection Plan SIGNATURE: Sachin Medellin PA-C Sachinbrennon Avendano) Lacie 03/17/181739 Sachin (Saeed) Lacie 03/17/181740 Attending Note I have personally performed a face to face assessment of the patient and have reviewed the PA/GRE INSTRUCTOR note. My [place] findings include: History is [...] Time: 6:07 PM Karan Diallo DO 03/17/181811 Previous Version Roxann Kimbrough RN, RN 03/17/2018 3:23 PM Signed Patient presents to ED with leg pain swelling infection Jasmeet Beltran Medic, Medic 03/17/2018 3:48 PM Signed Blood cultures drawn and sent. One set. 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 Home Health Care Agency: [facility]; ; Active. Equipment Prior to Admission: Oxygen 3 liters per minute [facility] supplies Provider [facility] Has the Patient Been in a Care Home Facility in the Past 30 days? No [...] these needs: Pt is from home with [facility] nursing services and plans to resume [...] 0 I feel financially burdened by my fub-yb-ijclhl expenses for my prescription medication: Disagree completely [...] would like to resume nursing services with [facility] POTENTIAL TRANSITION PLANS Home Home Care SW met with pt and hnulkple-na-rks bedside. Pt and uunknruy-xa-aac are familiar with SW from previous hospitalization. Explained role again. Pt is from home and noted that although she and her mssvgsum-us-tde are in separate units, they live in the same house. Pt reported she has an intercom system and can communicate with her rofrumrs-jl-cuj. Pt confirmed she is active with [facility] nursing services and wants to resume services upon d/c. Xuqpwlmu-kl-pfz to transport. SIGNATURE: NAILA AMEZCUA PATIENT NAME: Rosa Beltran DATE: March 17, 2018 TIME: 6:02 PM PAGER/CONTACT #: [phone] Karishma Cleary MD 03/18/2018 12:04 AM Signed DEPARTMENT OF HOSPITAL MEDICINE HISTORY AND PHYSICAL EXAM SERVICE DATE: 03/17/2018 SERVICE TIME: 6.20 PM Primary Care Physician: Mani Newman MD NIGHT AND WEEKEND COVERAGE: Nights: Please contact pager [phone]. Subjective CHIEF COMPLAINT: worsening of leg ulcers [...] were noted to be 183/81 mm Hg, NH- 60/min, Temp- 98.4, RR- 18/min, SPO2 98 % on 3 L NC O2. CBC and BMP normal. INR - 2.3. Podiatry consulted from ED. She is admitted for management of worsening of leg ulcers with cellulitis. PAST MEDICAL HISTORY Diagnosis Date - Acquired hypothyroidism - Acute respiratory failure with hypoxia (HCC) 09/30/2017 - Atrial fibrillation ([facility]) - CAD (coronary artery disease) Dr. Brenda [...] 10/08/2016 - COPD (chronic obstructive pulmonary disease) ([facility]) - Depressive disorder 12/29/2016 - Disruption of [...] - TOTAL KNEE REPLACEMENT Right 2003 [facility] Gen. - TOTAL KNEE REPLACEMENT Left 2004 [facility] Gen. No family history on [...] March 17, 2018 TIME:12:04 AM PAGER/CONTACT #: [phone] etx [phone] Echo Yeager, RN, RN 03/17/2018 7:39 PM [...] any questions, please contact inpatient pharmacy at [phone]. Age: [age] year old Allergies: ALLERGIES No [...] hypothyroidism - Acute respiratory failure with hypoxia ([facility]) 09/30/2017 - Atrial fibrillation ([facility]) - CAD (coronary artery disease) Dr. Brenda [...] 10/08/2016 - COPD (chronic obstructive pulmonary disease) ([facility]) - Depressive disorder 12/29/2016 - Disruption of [...] - TOTAL KNEE REPLACEMENT Right 2003 [facility] Gen. - TOTAL KNEE REPLACEMENT Left 2004 [facility] Gen. No family history on [...] antibiotics. Pt has been seen in the [place] [facility] and states she also has [facility] assist with dressing changes. Pt denies N/V/F/C/SOB. PAST MEDICAL HISTORY Diagnosis Date - Acquired hypothyroidism - Acute respiratory failure with hypoxia ([facility]) 09/30/2017 - Atrial fibrillation ([facility]) - CAD (coronary artery disease) Dr. Brenda [...] 10/08/2016 - COPD (chronic obstructive pulmonary disease) ([facility]) - Depressive disorder 12/29/2016 - Disruption of surgical wound 09/2015 Right tibia - Dorsalgia 12/29/2016 - Dyslipidemia - Gastric bypass status for obesity 12/29/2016 - Gastroesophageal reflux disease without esophagitis 10/08/2016 - HTN (hypertension) - Muscular weakness 12/29/2016 - Primary osteoarthritis involving multiple joints 12/29/2016 - Pure hypercholesterolemia - Rheumatoid arthritis ([facility]) 2007 - Sleep apnea - Stented coronary artery 12/29/2016 PAST SURGICAL HISTORY Procedure Laterality Date - CC CORONARY STENT 11/20/2012 KIMMY LAD - CC CORONARY STENT 12/20/2014 KIMMY, Cfx - SECTION HX - COLONOSCOPY 06/10/2017 [facility], Nonspecific cecal ulcer - GASTRIC BYPASS HX 1986 - HERNIA REPAIR HX 1987; 1989 - PAST SURGICAL HISTORY OF Right 09/2015 right tibia fracture ORIF - PAST SURGICAL HISTORY OF Right 01/20/2016 Removal of hardware, right tibia - TOTAL KNEE REPLACEMENT Right 2003 [facility] Gen. - TOTAL KNEE REPLACEMENT Left 2004 [facility] Gen. No family history on [...] SERVICE TIME: 10:58 AM LOCATION / ROOM: [place] [address]/[place] [address] Hospital Medicine/Primary Attending: Gallito Clarke MD NIGHT COVERAGE BETWEEN 5.30P-7.30A Page [phone] ASSESSMENT AND PLAN Active Hospital Problems Diagnosis [...] 0.25% (DAKINS HALF- STRENGTH) IRRIGATION ONCE Jessica (Parul Yeager warfarin 3 mg tab(s) (COUMADIN) 3 mg ORAL DAILY Karishma Busbyhisundaram 3 mg at 03/17/18 0998 acetaminophen 1,000 mg tab(s) (TYLENOL) 1,000 mg ORAL q 6 H [facility]N [facility] 1,000 mg at 03/18/18 0608 gabapentin 300 mg cap(s) (NEURONTIN) 300 mg ORAL BID [facility] 300 mg at 03/18/18 1024 lisinopril 2.5 mg tab(s) (ZESTRIL, PRINIVIL) 2.5 mg ORAL DAILY [facility] 2.5 mg at 03/18/18 1023 metoprolol tartrate (short acting) 12.5 mg tab(s) (LOPRESSOR) 12.5 mg ORAL BID [facility] Me[facility] 12.5 mg at 03/18/18 1024 therapeutic multivitamin with iron (THERAGRAN-M) 1 tablet ORAL DAILY [facility] 1 tablet at 03/18/18 1023 aspirin, enteric coated 81 mg tab(s) (ASPIRIN, ENTERIC COATED) 81 mg ORAL DAILY [facility] 81 mg at 03/18/18 1024 spironolactone 25 mg tab(s) (ALDACTONE) 25 mg ORAL BID [facility] 25 mg at 03/18/[address] 20 mg tab(s) (PROTONIX) 20 mg ORAL DAILY [facility]en[facility] 20 mg at 03/18/18 0609 metOLAzone 2.5 mg tab(s) (ZAROXOLYN) 2.5 mg ORAL DAILY [facility] 2.5 mg at 03/18/18 1024 levothyroxine 100 mcg tab(s) (SYNTHROID) 100 mcg ORAL DAILY (6 AM) [facility] 100 mcg at 03/18/18 0609 furosemide 40 mg injection (LASIX) 40 mg INTRAVENOUS q 8 H [facility] 40 mg at 03/18/18 0608 ondansetron orally disintegrating 4 mg tab(s) (ZOFRAN ODT) 4 mg ORAL q 6 H PRN [facility] Meenak[facility] 4 mg at 03/18/18 0609 Or ondansetron (PF) 4 mg injection (ZOFRAN) 4 mg INTRAVENOUS q 6 H PRN Chandramohan Meenakshisundaram piperacillin-tazobactam 3.375 g in dextrose (iso-osmotic) [...] Note Patient Name: Rosa Beltran Patient Location: [facility]204/[id number] Daily Note: 1300. Paged Dr. 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 Pt was active with [facility], DRUG SAFETY SPECIALIST. Will need new F2F upon dc. CM to continue to follow and support. SIGNATURE: MERY Abraham PATIENT NAME: Rosa Beltran DATE: March 19, 2018 TIME: 8:58 AM PAGER/CONTACT #: [phone] Carrie Coello, PT 03/19/2018 1:16 PM Signed PHYSICAL THERAPY MISSED VISIT SERVICE DATE: 03/19/2018 SERVICE TIME: 1100 to 1132 ROOM: [id number] Attempted Evaluation. Patient not seen due to [...] 19, 2018 TIME: 9:36 AM PAGER/CONTACT #: [phone] Carrie Coello, PT 03/19/2018 12:12 PM Signed Physical Therapy Evaluation SERVICE DATE: 03/19/2018 SERVICE TIME: 1100 to 1132 ROOM: [place] [address] Recommended Discharge Disposition: Subacute/SNF Recommended Discharge Disposition [...] (generalized);Unsteadiness on feet Interventions Provided: Evaluation;Therapeutic Activity (96206);Gait Training (86912) $ Evaluation-Low (70529) Billed Units: 1 unit Therapeutic Activity (22164) Treatment Minutes: 9 1 unit Skilled Intervention(s): [...] deferred to minimize pt agitation) Gait Training (29802) Treatment Minutes: 4 Skilled Intervention(s): Instruction in [...] 19, 2018 TIME: 12:01 PM PAGER/CONTACT #: [phone] Alisa Beltre Pharmacist 03/19/2018 1:26 PM Signed PHARMACY WARFARIN EDUCATION [...] Anticoagulant Medication Warfarin (Coumadin). Alisa Beltre, Pharmacist Gallito Clarke MD 03/19/2018 3:22 PM Signed HOSPITAL MEDICINE PROGRESS NOTE Name: Rosa Beltran SERVICE DATE: 03/19/2018 SERVICE TIME: 1:39 PM LOCATION / ROOM: [place] [address]/[id number] Hospital Medicine/Primary Attending: Gallito Clarke MD NIGHT COVERAGE BETWEEN 5.30P-7.30A Page [phone] ASSESSMENT AND PLAN Active Hospital Problems Diagnosis [...] ORAL DAILY Chandramohan Meenakshisundaram 3 mg at 03/18/182013 acetaminophen 1,000 mg tab(s) (TYLENOL) 1,000 mg ORAL q 6 H PRN Chandramohan Meenakshisundaram 1,000 mg at 03/19/18 0823 gabapentin 300 mg cap(s) (NEURONTIN) 300 mg ORAL BID Chandramohan Meenakshisundaram 300 mg at 03/19/18 0824 lisinopril 2.5 mg tab(s) (ZESTRIL, PRINIVIL) 2.5 mg ORAL DAILY [facility] 2.5 mg at 03/18/18 1023 therapeutic multivitamin with iron (THERAGRAN-M) 1 tablet ORAL DAILY Chandramohan Meenakshisundaram 1 tablet at 03/19/18 0824 aspirin, enteric coated 81 mg tab(s) (ASPIRIN, ENTERIC COATED) 81 mg ORAL DAILY Chandramohan Meenakshisundaram 81 mg at 03/18/18 1024 spironolactone 25 mg tab(s) (ALDACTONE) 25 mg ORAL BID Chandramohan Meenakshisundaram 25 mg at 03/18/[address] 20 mg tab(s) (PROTONIX) 20 mg ORAL DAILY Chandramohan Meenakshisundaram 20 mg at 03/19/18 0554 metOLAzone 2.5 mg tab(s) (ZAROXOLYN) 2.5 mg ORAL DAILY Chandramohan Meenakshisundaram 2.5 mg at 03/18/18 1024 levothyroxine 100 mcg tab(s) (SYNTHROID) 100 mcg ORAL DAILY (6 AM) Dicksonramohjackelyn Meenakshisundaram 100 mcg at 03/19/18 0554 furosemide 40 mg injection (LASIX) 40 mg INTRAVENOUS q 8 H Chandramohan Meenakshisundaram 40 mg at 03/19/18 0554 ondansetron orally disintegrating 4 mg tab(s) (ZOFRAN ODT) 4 mg ORAL q 6 H PRN Chandramohan Meenakshisundaram 4 mg at 03/19/18 0624 Or ondansetron (PF) 4 mg injection (ZOFRAN) 4 mg INTRAVENOUS q 6 H PRN Chandramohan Meenakshisundaram oxyCODONE-acetaminophen 5-325 mg 1 tablet (PERCOCET) 1 tablet ORAL q 8 H PRN Chandramohan Meenakshisundaram perflutren lipid microspheres 1.1 mg/mL 1.3 mL injection (DEFINITY) 1.3 mL INTRAVENOUS DIRECTED PRN Chandramohan Meenakshisundaram OBJECTIVE PHYSICAL EXAM: BP 123/76 Pulse [...] March 19, 2018 TIME: 2:03 PM Sydnee Bowles RN, RN 03/19/2018 6:16 PM Signed Nursing Progress Note Vital Operations Agent Assessment Note Patient Name: Rosa Beltran Patient Location: [facility]/[id number]-[id number]-9498- Patient Vitals in the past 4 hrs: [...] patients VS. This note was completed by: ELENA Iyer MD, MD 03/20/2018 1:26 PM Signed INFECTIOUS [...] AND WEEKEND COVERAGE: Nights: Please contact pager [phone]. Subjective INTERVAL HPI: pt seen and examined, [...] 03/17/182017 -- 03/17/182029 vte non-pharmacologic prophylaxis contraindicated (ky,nc) 03/17/182029 vte current anticoag therapy ([place]) VTE Prophylaxis: VTE prophylaxis appropriate Disposition: Home with [facility] Plan of care discussed with: Patient SIGNATURE: Liza Barry MD PATIENT NAME: Rosa Beltran DATE: March 20, 2018 TIME: 12:58 PM PAGER/CONTACT #: [phone] etx [phone] Maritza Cadet RN, RN 03/20/2018 2:54 PM Signed CARE MANAGEMENT PROGRESS NOTE SERVICE DATE: 03/20/2018 SERVICE TIME: 2:51 PM LOS: 3 days Needs Prior to Discharge: Home Care Order;To Be Determined;Other: See Comment;Wound Care (Medical Clearance) EMR reviewed. ELENA DIAZ met with patient at bedside to discuss the discharge plan. Physical Therapy is recommending SNF. Patient is declining SNF at this time and indicates that she plans on returning home with [facility] for wound care. Patient indicates that she does not feel she needs PT/OT at home. Patient also reports that she wears 2-3 liters of O2 PRN and has a portable O2 tank available if needed. CM assigned will continue to follow. SIGNATURE: Maritza Cadet RN PATIENT NAME: Rosa Beltran DATE: March 20, 2018 TIME: 2:51 PM PAGER/CONTACT #: [phone] Timothy Esposito RN, RN 03/21/2018 1:07 AM Signed Nursing Progress Note Patient Name: Rosa Beltran [facility]0205/ZL-7Q-5745-2 Daily Note: 0107 LIP paged r/t order clarification. This note was completed by: ELENA Shirley RN, RN 03/21/2018 1:10 AM Signed Nursing Progress Note Vital Operations Agent Assessment Note Patient Name: Rosa Beltran Patient [facility]: [facility]S-0205/MM-2U-4460-2 Patient Vitals in the past 4 hrs: 03/20/18 2327, BP:115/69, Temp:37.2 ?C (99 ?F), Temp src:Oral, Pulse:(!) 57, Resp:18, SpO2:94 % Status Change Related to: Cardiac Issues (See Nursing Clinical Assessment For Details) The Following People Were Notified: Attending Physician Caregiver/Provider: Dr. Mercado. See Documentation Related to: Continuous Monitoring Additional Comments : This note was completed by: Timothy Esposito RN Maritza Cadet, RN, RN 03/21/2018 10:32 AM Signed MULTIDISCIPLINARY [...] Layer Exposed (Hcc) Attendees Present at Rounds: Power Generation Technician: Maritza Cadet Provider: Dr. Barry Needs Discussed [...] Plans on returning hoe with resumption of [facility]. Nursing: Cardiac Intervention(s) Plan: Monitor [...] Management;Position to Optimal Function;Assist with Ambulation and Transfers;[place] Safety Measures;Pressure Ulcer Prevention Mobility Patient/Family Goals: [...] March 21, 2018 TIME: 10:29 AM CSN: [id number] Jessica Yeager DPM 03/21/2018 10:15 AM Signed [...] Note Patient Name: Rosa Beltran [facility]5/FG-0Q-2625-2 Daily Note: 1243: Spoke to Dr Barry [...] This note was completed by: Gay Lauren, ELENA Previous Version Liza Barry MD 03/21/2018 2:50 PM Addendum DEPARTMENT OF HOSPITAL MEDICINE PROGRESS NOTE SERVICE DATE: 03/21/2018 SERVICE TIME: 2:45 PM Hospital Medicine/Primary Attending: Liza Barry MD NIGHT AND WEEKEND COVERAGE: Nights: Please contact pager [phone]. Subjective INTERVAL HPI: pt seen and examined, [...] Prophylaxis: VTE prophylaxis appropriate Disposition: Home with [facility] Plan of care discussed with: Patient SIGNATURE: Liza Barry MD PATIENT NAME: Rosa Beltran DATE: March 21, 2018 TIME: 2:43 PM PAGER/CONTACT #: [phone] etx [phone] Previous Version Checo Kay MD, 03/21/2018 3:27 PM Signed INFECTIOUS DISEASE PROGRESS [...] reviewed Imaging data: reviewed Checo Kay MD [phone] 03/21/2018 3:26 PM Timothy Esposito, RN, RN 03/22/2018 3:54 AM Addendum Nursing Progress Note Patient Name: Rosa Beltran Patient Location: [place] [address] [address] Daily Note: 3333 LIP paged r/t pt [...] reviewed Imaging data: reviewed Checo Kay MD [phone] 03/22/2018 9:30 AM Taran Lawton MD 03/22/2018 [...] Leg Ulcer, Right, With Fat Layer Exposed ([facility]) PAST MEDICAL HISTORY Diagnosis Date - Acquired hypothyroidism - Acute respiratory failure with hypoxia (HCC) 09/30/2017 - Atrial fibrillation ([facility]) - CAD (coronary artery disease) Dr. Brenda [...] 10/08/2016 - COPD (chronic obstructive pulmonary disease) ([facility]) - Depressive disorder 12/29/2016 - Disruption of [...] - TOTAL KNEE REPLACEMENT Right 2003 [facility] Gen. - TOTAL KNEE REPLACEMENT Left 2004 [facility] Gen. No family history on [...] cap(s) (COLACE) 100 mg ORAL BID PRN Hussain Eric 100 mg at 03/21/18 1219 piperacillin-tazobactam 3.375 g in dextrose (iso-osmotic) 50 mL (ZOSYN) 3.375 g INTRAVENOUS q 8 H Checo Kay MD Last Rate: 100 mL/hr at 03/22/18 0520 3.375 g at 03/22/18 0520 warfarin 3 mg tab(s) (COUMADIN) 3 mg ORAL DAILY Chandramohjackelyn Meenakshisundaram 3 mg at 03/20/18 1631 acetaminophen 1,000 mg tab(s) (TYLENOL) 1,000 mg ORAL q 6 H PRN Dicksonramohan Meenakshisundaram 1,000 mg at 03/22/18 0519 gabapentin 300 mg cap(s) (NEURONTIN) 300 mg ORAL BID Dicksonramohjackelyn Meenakshisundaram 300 mg at 03/22/18 0908 therapeutic multivitamin with iron (THERAGRAN-M) 1 tablet ORAL DAILY Dicksonramncjackelyn Meenakshisundaram 1 tablet at 03/22/18 0908 aspirin, [...] H PRN Dicksonramohan Meenakshisundaram 4 mg at 03/20/18 1015 Or ondansetron (PF) 4 mg injection (ZOFRAN) 4 mg INTRAVENOUS q 6 H PRN Dicksonramlula Meenakshisundaram 4 mg at 03/22/18 0621 oxyCODONE-acetaminophen 5-325 mg 1 tablet (PERCOCET) 1 tablet ORAL q 8 H PRN Karishma Cleary perflutren lipid microspheres 1.1 mg/mL 1.3 mL injection (DEFINITY) 1.3 mL INTRAVENOUS DIRECTED PRN Karishma Cleary Allergies: ALLERGIES No Known Allergies DOS EXAM: [...] March 22, 2018 TIME: 11:36 AM CSN: [id number] PROGRESS Observed: 03/13/2018 Status: COMPLETED Source: ROUND TOP 1:06 PM [facility] [place] REPOSITORY [facility] ID: [id number] Author: Ty Beckman Service: (none) Author Type: Physician Type: Progress Notes Filed: 03/13/2018 11:23 PM Note Text: Ty Beckman DPM Department of Podiatry [address] [facility] [address] Dept: [phone] Dept Nail Care SUBJECTIVE: Follow up office [...] length and thickness Continue wound care per [facility] f/u in 3 months Ty Beckman DPM CNOV Observed: 03/13/2018 Status: COMPLETED Source: ROUND TOP 12:40 PM [facility]IC [facility] REPOSITORY Office Visit (PODIWS) ROSA BELTRAN ([id number]) 1935 F Date Time Provider Department 03/13/18 12:40 PM TY BECKMAN PODIWS During your visit today, we recorded the following information about you: Ty Beckman 03/13/2018 11:23 PM Signed Ty Beckman DPM Department of Podiatry [address] [facility] [address] Dept: [phone] Dept Nail Care SUBJECTIVE: Follow up office [...] length and thickness Continue wound care per [facility] f/u in 3 months Ty Beckman DPM Referring Provider: TY BECKMAN [[id number]] Allergies As of Date: 03/13/2018 (No Known [...] 03/13/18 PROGRESS Observed: 03/08/2018 Status: COMPLETED Source: ROUND TOP 2:00 PM CLINIC OTHER CAMPUS REPOSITORY [facility] ID: [id number] Author: Luis Lyles (Loi) Carla Service: (none) Author Type: Nurse Practitioner Type: Progress Notes Filed: 03/20/2018 2:15 PM Note Text: DATE OF VISIT: 03/08/2018 REASON FOR VISIT: Non-healing lower extremity wound. HISTORY OF PRESENT ILLNESS: Rosa Beltran is a 81 year old female who presents to the [facility] for further [...] followed by Dr. Jaskaran Chance at the [facility]. It was felt that her home support system was inadequate and that she may not have the resources in her home environment to appropriately care for her needs. In this regard, a social work lecturer consultation had been recommended on several occassions, but patient apparently insisted on remaining in her home environment despite that there was thought that is may be less than optimal. The patient is here at the [facility] for a second opinion [...] hypothyroidism - Acute respiratory failure with hypoxia ([facility]) 09/30/2017 - Atrial fibrillation ([facility]) - CAD (coronary artery disease) Dr. Brenda [...] 10/08/2016 - COPD (chronic obstructive pulmonary disease) ([facility]) - Depressive disorder 12/29/2016 - Disruption of surgical wound 09/2015 Right tibia - Dorsalgia 12/29/2016 - Dyslipidemia - Gastric bypass status for obesity 12/29/2016 - Gastroesophageal reflux disease without esophagitis 10/08/2016 - HTN (hypertension) - Muscular weakness 12/29/2016 - Primary osteoarthritis involving multiple joints 12/29/2016 - Pure hypercholesterolemia - Rheumatoid arthritis ([facility]) 2007 - Sleep apnea - Stented coronary artery 12/29/2016 PAST SURGICAL HISTORY Procedure Laterality Date - CC CORONARY STENT 11/20/2012 KIMMY LAD - CC CORONARY STENT 12/20/2014 KIMMY, Cfx - SE[facility] - GASTRIC BYPASS HX 1986 - HERNIA REPAIR HX 1987; 1989 - PAST SURGICAL HISTORY OF Right 09/2015 right tibia fracture ORIF - PAST SURGICAL HISTORY OF Right 01/20/2016 Removal of hardware, right tibia - TOTAL KNEE REPLACEMENT Right 2003 [facility] Gen. - TOTAL KNEE REPLACEMENT Left 2004 [facility] Gen. MEDICATIONS ergocalciferol, vitamin D2, [...] Rubor of Dependency: Negative (Y) Positive (N) [place] Examination: Comments: Measurements: Right Calf: 57 cm Right Ankle: 37 cm Left Calf: 50.5 cm Left Ankle: 33.5 cm Neuro: Alert AND oriented x3, PROCESS IMPROVEMENT ANALYST II-XII grossly intact, reflexes 2+ and symmetric, [...] No acute fracture or bony destruction. ? Automatic Grinder Operator: DWIGHT ? Transcribe Date/Time: Oct 14 2017 [...] No acute fracture or bony destruction. ? Automatic Grinder Operator: DWIGHT ? Transcribe Date/Time: Oct 14 2017 [...] and Edge attached to base Periwound Tissue: [place], dry and intact, No fluctuance, induration or [...] and Edge attached to base Periwound Tissue: [place], dry and intact, No fluctuance, induration or [...] -- Week 5 Wound Bed (Post-debridement): 100% [place] % of Healthy tissue: Undermining: No Tunneling: No Tendon/bone exposed: NO Wound Edge/Margins: Well-defined wound edges and Edge attached to base Periwound Tissue: [place], dry and intact, No fluctuance, induration or [...] Systemis Rx: Begin: Doxycycline to prevent reoccurant [id number] mg PO BID x 14 days then [...] worsening symptoms. Luis Simons CNP Charge Capture: [id number] CNOV Observed: 03/08/2018 Status: COMPLETED Source: ROUND TOP 2:00 PM CLINIC OTHER CAMPUS REPOSITORY Office Visit (PLWDMR) ROSA BELTRAN ([id number]) 1935 F Date Time Provider Department 03/08/18 2:00 PM LUIS SIMONS, (TESTING COORDINATOR) PLWDMR During your visit today, we recorded the following information about you: Temperature Pulse Respiration Blood pressure 98.2 degrees 73/minute 16/minute 137/62 Luis Simons APRN.CNP 03/20/2018 2:15 PM Signed DATE OF VISIT: 03/08/2018 REASON FOR VISIT: Non-healing lower extremity wound. HISTORY OF PRESENT ILLNESS: Dresdennicola Beltran is a 81 year old female who presents to the [facility] for further [...] followed by Dr. Jaskaran Chance at the [facility]. It was felt that her home support system was inadequate and that she may not have the resources in her home environment to appropriately care for her needs. In this regard, a social work lecturer consultation had been recommended on several occassions, but patient apparently insisted on remaining in her home environment despite that there was thought that is may be less than optimal. The patient is here at the [facility] for a second opinion [...] hypothyroidism - Acute respiratory failure with hypoxia ([facility]) 09/30/2017 - Atrial fibrillation ([facility]) - CAD (coronary artery disease) Dr. Brenda [...] 10/08/2016 - COPD (chronic obstructive pulmonary disease) ([facility]) - Depressive disorder 12/29/2016 - Disruption of [...] - TOTAL KNEE REPLACEMENT Right 2003 [facility] Gen. - TOTAL KNEE REPLACEMENT Left 2004 [facility] Gen. MEDICATIONS ergocalciferol, vitamin D2, [...] Rubor of Dependency: Negative (Y) Positive (N) [place] Examination: Comments: Measurements: Right Calf: 57 cm Right Ankle: 37 cm Left Calf: 50.5 cm Left Ankle: 33.5 cm Neuro: Alert AND oriented x3, PROCESS IMPROVEMENT ANALYST II-XII grossly intact, reflexes 2+ and symmetric, [...] No acute fracture or bony destruction. ? Automatic Grinder Operator: DWIGHT ? Transcribe Date/Time: Oct 14 2017 [...] No acute fracture or bony destruction. ? Automatic Grinder Operator: DWIGHT ? Transcribe Date/Time: Oct 14 2017 [...] and Edge attached to base Periwound Tissue: [place], dry and intact, No fluctuance, induration or [...] and Edge attached to base Periwound Tissue: [place], dry and intact, No fluctuance, induration or [...] -- Week 5 Wound Bed (Post-debridement): 100% [place] % of Healthy tissue: Undermining: No Tunneling: No Tendon/bone exposed: NO Wound Edge/Margins: Well-defined wound edges and Edge attached to base Periwound Tissue: [place], dry and intact, No fluctuance, induration or [...] Systemis Rx: Begin: Doxycycline to prevent reoccurant [id number] mg PO BID x 14 days then [...] worsening symptoms. Luis Simons CNP Charge Capture: [id number] Tiffanie Humphrey, RN, RN 03/08/2018 2:59 PM [...] following changes to the Wound Center at [phone] or go to the Emergency Department: ? [...] days off. Indefinitely Rx: Doxycycline Luis Simons TESTING COORDINATOR/mjl Referring Provider: MANI NEWMAN [[id number]] Allergies As of Date: 03/08/2018 (No Known [...] following changes to the Wound Center at [phone] or go to the Emergency Department: ? [...] days off. Indefinitely Rx: Doxycycline Luis Simons TESTING COORDINATOR/mjl Visit Notes: >> Tiffanie (Rn) ELENA Humphrey TueMarch 08, 2018 2:17 PM [...] METABOLIC PANL Collected: 03/06/2018 Status: F Source: ROUND TOP 4:07 PM [facility] REPOSITORY TYPE CODE TESTS RESULT OUT OF REFERENCE UNITS RANGE LAB GLU 74-99 mg/dL High Glucose 106 Result Comment: The [place] [employer] (ADA) provides guidance for cutoff [...] Standards of Medical Care in Diabetes 2016, [place] [employer]. Diabetes Care. 2016.39(Suppl 1). LAB [...] actual GFR. Performed By: #### BMP #### [facility] [facility] [address] [place], [place] [address] PROTIME Collected: 03/06/2018 Status: F Source: ROUND TOP 4:01 PM [facility] REPOSITORY TYPE CODE TESTS RESULT OUT OF RANGE REFERENCE UNITS LAB PSEC 9.7-13.0 sec High PT Sec 15.0 LAB INR 0.9-1.3 High PT INR 1.5 Result Comment: Vitamin K Antagonist (VKA) Therapeutic Range: INR 2 to 3 (Target INR of 2.5) Note: For patients treated with VKA drugs, such as warfarin, the [employer] 2012 Guideline recommends [...] Chest 2012, 141:7S-47S Genevieve RA, et al. [facility] 2017, 70: 252-289 Performed By: #### PT #### [facility] [address] [place], [place] [address] PROGRESS Observed: 03/06/2018 Status: COMPLETED Source: ROUND TOP 2:50 PM [facility] REPOSITORY HNO ID: [id number] Author: Mani Newman Service: (none) Author Type: Physician Type: Progress Notes Filed: 03/06/2018 3:21 PM Note Text: This note was created using Geewariter. Subjective Rosa Beltran is a 82 year old female was here for follow up. She was admitted again 02/24-02/27 at [facility] for congestive heart failure, pneumonia, hyponatremia, atrial [...] MD CNOV Observed: 03/06/2018 Status: COMPLETED Source: ROUND TOP 2:20 PM [facility] REPOSITORY Office Visit (INTMWS) ROSA BELTRAN ([id number]) 1935 F Date Time Provider Department 03/06/18 [...] up. She was admitted again 02/24-02/27 at [facility] for congestive heart failure, pneumonia, hyponatremia, atrial [...] list for changes. Referring Provider: MANI NEWMAN [[id number]] Allergies As of Date: 03/06/2018 (No Known [...] DOCUSATE SODIUM 100 MG CAPSULE 30 c* 5 03/06/2018 Route: ORAL Sig: Take 1 capsule by mouth once daily as needed for Constipation. FUROSEMIDE 40 MG TABLET 120 * 03/06/2018 Route: ORAL Sig: Take 2 tablets by mouth twice daily. SPIRONOLACTONE 25 MG TABLET 60 t* 5 03/06/2018 Route: ORAL Sig: Take [...] 03/06/18 BMP Collected: 02/27/2018 Status: F Source: [facility] 5:22 AM [facility] REPOSITORY TYPE CODE TESTS [...] Calcium Lvl 8.5 Performed By: #### BMP, GFR, PRO #### [address] [address] .GFR Collected: 02/27/2018 Status: F Source: [facility] 5:22 AM [facility] REPOSITORY TYPE CODE TESTS RESULT OUT OF REFERENCE UNITS RANGE LAB GFRAA(LOINC ml/min/1.73 ) sqm GFR 44 Jamaican Result Comment: GFR Population mean for , [...] mL/min/1.73 square meters Performed By: #### GRETCHEN, GFR, PRO #### [address] [place], [place] [address] PRO Collected: 02/27/2018 Status: F Source: [facility] 5:22 AM [facility] REPOSITORY TYPE CODE TESTS RESULT [...] valves 2.5 - 3.5 Performed By: #### GRETCHEN, GFR, PRO #### [place] [address] [address] XR CHEST 2 VIEWS Observed: 02/26/2018 Status: F Source: [facility] 10:16 AM [facility] REPOSITORY ORIGINAL XR CHEST 2 VIEWS CLINICAL [...] PM .GFR Collected: 02/26/2018 Status: F Source: [facility] 8:35 AM [facility] REPOSITORY TYPE CODE TESTS RESULT OUT OF REFERENCE UNITS RANGE LAB GFRAA(LOINC ml/min/1.73 ) sqm GFR 45 Jamaican Result Comment: GFR Population mean for , [...] Performed By: #### GFR, PRO, BMP #### [address] [address] PRO Collected: 02/26/2018 Status: F Source: [facility] 8:35 AM [facility] REPOSITORY TYPE CODE TESTS RESULT [...] Performed By: #### GFR, PRO, BMP #### [address] [address] BMP Collected: 02/26/2018 Status: F Source: [facility] 8:35 AM [facility] REPOSITORY TYPE CODE TESTS RESULT [...] Low Calcium Lvl 8.2 Performed By: #### GFR, PRO, BMP #### [address] [address] TROP Collected: 02/25/2018 Status: F Source: [facility] 6:26 AM [facility] REPOSITORY TYPE CODE TESTS RESULT OUT OF REFERENCE UNITS RANGE LAB TROP(LOINC) 0.00-0.30 ng/mL Troponin <0.30 Result Comment: Below measuring range >=0.30 Consistent with cardiac damage, increased clinical risk and possibility of myocardial infarction. Serial measurements, clinical history, appropriate symptoms and/or ECG changes may help assess possibility of [place]. *Other non-acute coronary syndrome conditions such as CHF, myocarditis, pulmonary emboli, sepsis and cardiac surgery could result in myocardial damage and increased troponin levels. Performed By: #### TROP, CBC, ADIFF, ANEU, PRO, BMP, MG, GFR #### [address] [address] CBC Collected: 02/25/2018 Status: F Source: [facility] 6:26 AM [facility] REPOSITORY TYPE CODE TESTS RESULT [...] 7.4-10.4 fL MPV 9.0 Performed By: #### TROP, CBC, ADIFF, ANEU, PRO, BMP, MG, GFR #### [address] [address] .AUTO DIFF Collected: 02/25/2018 Status: F Source: [facility] 6:26 AM [facility] REPOSITORY TYPE CODE TESTS RESULT [...] Basophil, 0.00 Absolute Performed By: #### TROP, CBC, ADIFF, ANEU, PRO, BMP, MG, GFR #### [address] [address] .NEUABS Collected: 02/25/2018 Status: F Source: [facility] 6:26 AM [facility] REPOSITORY TYPE CODE TESTS RESULT OUT OF REFERENCE UNITS RANGE LAB ANEU(LOINC) 2.85-6.16 10 3/mcL High Neutrophil, 10.50 Absolute Performed By: #### TROP, CBC, ADIFF, ANEU, PRO, BMP, MG, GFR #### [address] [address] PRO Collected: 02/25/2018 Status: F Source: [facility] 6:26 AM [facility] REPOSITORY TYPE CODE TESTS RESULT [...] valves 2.5 - 3.5 Performed By: #### TROP, CBC, ADIFF, ANEU, PRO, BMP, MG, GFR #### [address] [address] BMP Collected: 02/25/2018 Status: F Source: [facility] 6:26 AM [facility] REPOSITORY TYPE CODE TESTS RESULT [...] mg/dL Calcium Lvl 8.4 Performed By: #### TROP, CBC, ADIFF, ANEU, PRO, BMP, MG, GFR #### [address] [place], [place] [address] MG Collected: 02/25/2018 Status: F Source: [facility] 6:26 AM [facility] REPOSITORY TYPE CODE TESTS RESULT OUT OF REFERENCE UNITS RANGE LAB MG(LOINC) 1.7-2.5 mg/dL Magnesium Lvl 1.7 Performed By: #### TROP, CBC, ADIFF, ANEU, PRO, BMP, MG, GFR #### [address] [place], [place] [address] .GFR Collected: 02/25/2018 Status: F Source: [facility] 6:26 AM [facility] REPOSITORY TYPE CODE TESTS RESULT OUT OF REFERENCE UNITS RANGE LAB GFRAA(LOINC ml/min/1.73 ) sqm GFR 52 Jamaican Result Comment: GFR Population mean for , [...] mL/min/1.73 square meters Performed By: #### TROP, CBC, ADIFF, ANEU, PRO, BMP, MG, GFR #### [address] [place], [place] [address] UA Collected: 02/24/2018 Status: F Source: [facility] 6:42 PM [facility] REPOSITORY TYPE CODE TESTS RESULT [...] UA Leuk Est NEGATIVE Performed By: #### UA, UAMICAO #### [address] [address] .URINALYSIS MICROSCOPIC Collected: 02/24/2018 Status: F Source: [facility] () 6:42 [facility] REPOSITORY TYPE CODE TESTS RESULT OUT OF RANGE REFERENCE UNITS LAB WBCUA(LOIN None Seen /hpf C) UA WBC None Seen LAB RBCUA(LOIN None Seen /hpf C) UA RBC None Seen LAB EPIUA(LOIN None Seen /hpf C) UA Squam Epithelial None Seen LAB TEPUA(LOIN /hpf C) UA Unknown Transitional 0-5 Epithelial Performed By: #### UA, UAMICAO #### [address] [address] Observed: 02/24/2018 Status: F Source: [facility] 6:42 PM [facility] REPOSITORY . MICRO - Microbiology PROCEDURE: Urine [...] Locations *1: This test was performed at: [facility], [address] [place] [address], [address] Performed By: #### CUR #### [address] [address] ABG Collected: 02/24/2018 Status: F Source: [facility] 6:40 PM [facility] REPOSITORY Order Comment: On room air TYPE [...] Sat 99 Performed By: #### ABG #### [facility] [address] [place], [place] [address] XR CHEST 1 VIEW Observed: 02/24/2018 Status: F Source: [facility] 6:34 PM [facility] REPOSITORY ORIGINAL XR CHEST 1 VIEW CLINICAL [...] PM LAC Collected: 02/24/2018 Status: F Source: [facility] 6:10 PM [facility] REPOSITORY TYPE CODE TESTS RESULT OUT OF REFERENCE UNITS RANGE LAB LAC(LOINC) 0.5-2.2 mmol/L Lactic Acid 1.9 Lvl Performed By: #### PRO, LAC #### [address] [place], [place] [address] Observed: 02/24/2018 Status: F Source: [facility] 6:10 PM [facility] REPOSITORY . MICRO - Microbiology PROCEDURE: Blood [...] Locations *1: This test was performed at: [facility], [address] [place] [address], [facility] Performed By: #### CBL #### [address] [address] CBC Collected: 02/24/2018 Status: F Source: [facility] 6:03 PM [facility] REPOSITORY TYPE CODE TESTS RESULT [...] 7.4-10.4 fL MPV 9.2 Performed By: #### CBC, TROP, CMP, GFR, PBNP, ADIFF, ANEU #### [address] [address] TROP Collected: 02/24/2018 Status: F Source: [facility] 6:03 [facility] REPOSITORY TYPE CODE TESTS RESULT OUT OF REFERENCE UNITS RANGE LAB TROP(LOINC) 0.00-0.30 ng/mL Troponin <0.30 Result Comment: Below measuring range >=0.30 Consistent with cardiac damage, increased clinical risk and possibility of myocardial infarction. Serial measurements, clinical history, appropriate symptoms and/or ECG changes may help assess possibility of NJ. *Other non-acute coronary syndrome conditions such as CHF, myocarditis, pulmonary emboli, sepsis and cardiac surgery could result in myocardial damage and increased troponin levels. Performed By: #### CBC, TROP, CMP, GFR, PBNP, ADIFF, ANEU #### [address] [address] CMP Collected: 02/24/2018 Status: F Source: [facility] 6:03 [facility] REPOSITORY TYPE CODE TESTS RESULT OUT [...] 10-35 IU/L ALT/SGPT 10 Performed By: #### CBC, TROP, CMP, GFR, PBNP, ADIFF, ANEU #### [address] [address] .GFR Collected: 02/24/2018 Status: F Source: [facility] 6:03 PM [facility] REPOSITORY TYPE CODE TESTS RESULT OUT OF REFERENCE UNITS RANGE LAB GFRAA(LOINC ml/min/1.73 ) sqm GFR 83 Jamaican Result Comment: GFR Population mean for , [...] mL/min/1.73 square meters Performed By: #### CBC, TROP, CMP, GFR, PBNP, ADIFF, ANEU #### [address] [address] PBNP Collected: 02/24/2018 Status: F Source: [facility] 6:03 [facility] REPOSITORY TYPE CODE TESTS RESULT OUT OF REFERENCE UNITS RANGE LAB PBNP(LOINC) 5.0-300.0 pg/mL High N-Terminal 5465.0 proBNP Result Comment: In the presence of acute dyspnea, CHF likely if: Age <50 years: >450 pg/mL Age 50-75 years: >900 pg/mL Age >75 years: >1800 pg/mL Performed By: #### CBC, TROP, CMP, GFR, PBNP, ADIFF, ANEU #### [address] [address] .AUTO DIFF Collected: 02/24/2018 Status: F Source: [facility] 6:03 PM [facility] REPOSITORY TYPE CODE TESTS RESULT [...] Basophil, 0.00 Absolute Performed By: #### CBC, TROP, CMP, GFR, PBNP, ADIFF, ANEU #### [address] [address] .NEUABS Collected: 02/24/2018 Status: F Source: [facility] 6:03 [facility] REPOSITORY TYPE CODE TESTS RESULT OUT OF REFERENCE UNITS RANGE LAB ANEU(LOINC) 2.85-6.16 10 3/mcL High Neutrophil, 18.90 Absolute Performed By: #### CBC, TROP, CMP, GFR, PBNP, ADIFF, ANEU #### [address] [address] PRO Collected: 02/24/2018 Status: F Source: [facility] 6:03 [facility] REPOSITORY TYPE CODE TESTS RESULT OUT [...] 2.5 - 3.5 Performed By: #### PRO, LAC #### [address] [address] Observed: 02/24/2018 Status: F Source: [facility] 6:03 [facility] REPOSITORY . MICRO - Microbiology PROCEDURE: Rapid [...] Locations *1: This test was performed at: [id number] [place] [address] Performed By: #### RFLU #### [place] [address] Observed: 02/24/2018 Status: F Source: [facility] 6:03 PM [facility] REPOSITORY . MICRO - [...] Locations *1: This test was performed at: [address], [address] [place] [address] Performed By: #### CBL #### [place] [address] RESPID Collected: 02/24/2018 Status: F Source: [facility] 5:52 PM [facility] REPOSITORY Order Comment: Order added by [id number] TYPE CODE TESTS RESULT OUT OF REFERENCE UNITS RANGE LAB RESADENO( Not Detected LOINC) Adenovirus Not Detected LAB COVHKU1(L Not Detected OINC) Coronavirus HKU1 Not Detected LAB COVNL63(L Not Detected OINC) Coronavirus NL63 Not Detected LAB KtP701W(L Not Detected OINC) Coronavirus 229E Not Detected [...] Not Detected Performed By: #### RESPID #### [place] [address] PROGRESS Observed: 02/17/2018 Status: COMPLETED Source: [facility] 12:30 PM [facility] REPOSIT[facility] HNO ID: [id number] Author: Ty Mills Service: (none) Author Type: [...] record. CNOV Observed: 02/17/2018 Status: COMPLETED Source: [facility] 11:45 AM [facility] REPOSITORY Office Visit (OTOLMM) ROSA BELTRAN ([id number]) 1935 F Date Time Provider Department 02/17/18 11:45 AM [facility] During your visit today, we recorded the following information about you: Ty Mills MD 02/17/2018 12:32 PM Signed Subjective HPI Rosa Beltran is a 82 [...] electronic medical record. Referring Provider: MANI NEWMAN [[id number]] Allergies As of Date: 02/17/2018 (No Known [...] CAPSULE Take 100 mg by mouth once uyly* MULTIVITAMIN-IRON 9 MG-FOLIC * Take 1 tablet [...] 02/17/18 PROGRESS Observed: 02/14/2018 Status: COMPLETED Source: [facility] 3:47 PM [facility] REPOSITORY HNO ID: [id number] Author: Chintan Dempsey DPM Service: (none) Author [...] MG (01/02/2018) Vitamin D (Ergocalciferol) Oral Capsule 11148 UNIT (12/24/2017) Spironolactone Oral Tablet 25 MG [...] rlegs recommended compression recommended wraps recommended surepress will get approved for graft plan march [...] I83.019 CNOV Observed: 02/14/2018 Status: COMPLETED Source: [facility] 8:00 AM [facility] REPOSITORY Office Visit (PLWDMR) ROSA BELTRAN ([id number]) 1935 F Date Time Provider Department 02/14/18 [...] will contact her. Patient instructions faxed to [facility] EDUCATION PER PROVIDER: The patient/family was instructed [...] following changes to the Wound Center at [phone] or go to the Emergency Department: ? [...] contact you about surgery. Dr. Dempsey/kgr Chintan Dempsey DPM, YONNY 02/14/2018 3:49 PM Signed Problem list reviewed. [...] MG (01/02/2018) Vitamin D (Ergocalciferol) Oral Capsule 63859 UNIT (12/24/2017) Spironolactone Oral Tablet 25 MG [...] normal strength noted. Babinski Test is normal foot Orthopedic Exam: Additional Orthopedic Findings: edema [...] extremity 454.0 I83.019 Referring Provider: LUIS SIMONS, ([facility]) [[id number]] Allergies As of Date: 02/14/2018 (No Known Allergies) Date Reviewed: 02/14/2018 Reviewed by: Tracy (Tory) TORY Alas - Fully Assessed Reason for [...] following changes to the Wound Center at [phone] or go to the Emergency Department: ? [...] surgery. Dr. Dempsey/kgr Visit Notes: >> Tracy (Tory) Eileen TORY Josephine Feb 14, 2018 8:19 AM Status: Addendum [...] the leg above the heart. Done per PJ RN. #1 Right lateral distal leg: L: [...] to comply. Encounter Status:Closed by CHINTAN DEMPSEY YONNY on 02/14/18 WOUND Observed: 02/10/2018 Status: F Source: [facility] CULTURE/STAIN 1:30 PM [facility] REPOSITORY Sp. Request/Comment: - Swab Smear Result [...] <=0.5 F Performed By: #### WCUL #### [facility] [id number] PROGRESS Observed: 02/10/2018 Status: COMPLETED Source: ROUND TOP 1:00 PM [facility] REPOSITORY HNO ID: [id number] Author: Luis Simons Service: (none) Author Type: Nurse Practitioner Type: Progress Notes Filed: 05/01/2018 3:16 PM Note Text: DATE OF VISIT: 02/10/2018 REASON FOR VISIT: Non-healing lower extremity wound. HISTORY OF PRESENT ILLNESS: Rosa Beltran is a 81 year old female who presents to the [facility] for further [...] followed by Dr. Jaskaran Chance at the [facility]. It was felt that her home support system was inadequate and that she may not have the resources in her home environment to appropriately care for her needs. In this regard, a social work lecturer consultation had been recommended on several occassions, but patient apparently insisted on remaining in her home environment despite that there was thought that is may be less than optimal. The patient is here at the [facility] for a second opinion [...] 10/08/2016 - COPD (chronic obstructive pulmonary disease) ([facility]) - Depressive disorder 12/29/2016 - Disruption of surgical wound 09/2015 Right tibia - Dorsalgia 12/29/2016 - Dyslipidemia - Gastric bypass status for obesity 12/29/2016 - Gastroesophageal reflux disease without esophagitis 10/08/2016 - HTN (hypertension) - Muscular weakness 12/29/2016 - Primary osteoarthritis involving multiple joints 12/29/2016 - Pure hypercholesterolemia - Rheumatoid arthritis ([facility]LY [facility]) 2007 - Sleep apnea - Stented coronary artery 12/29/2016 PAST SURGICAL HISTORY Procedure Laterality Date - CC CORONARY STENT 11/20/2012 [facility] - CC CORONARY STENT 12/20/2014 [facility], Cfx - SECTION HX - COLONOSCOPY 06/10/2017 [facility] [place] [facility], Nonspecific cecal ulcer - GASTRIC BYPASS HX 1986 - HERNIA REPAIR HX 1987; 1989 - PAST SURGICAL HISTORY OF Right 09/2015 right tibia fracture ORIF - PAST SURGICAL HISTORY OF Right 01/20/2016 Removal of hardware, right tibia - TOTAL KNEE REPLACEMENT Right 2003 [facility] Gen. - TOTAL KNEE REPLACEMENT Left 2004 [facility] Gen. MEDICATIONS ergocalciferol, vitamin D2, [...] Rubor of Dependency: Negative (Y) Positive (N) [place] Examination: Comments: Measurements: Right Calf: 54.5 cm Right Ankle: 32.5 cm Left Calf: 39.5 cm Left Ankle: 31.3 cm Neuro: Alert AND oriented x3, PROCESS IMPROVEMENT ANALYST II-XII grossly intact, reflexes 2+ and symmetric, [...] No acute fracture or bony destruction. ? Automatic Grinder Operator: DWIGHT ? Transcribe Date/Time: Oct 14 2017 [...] No acute fracture or bony destruction. ? Automatic Grinder Operator: DWIGHT ? Transcribe Date/Time: Oct 14 2017 [...] -- Week 5 Wound Bed (Post-debridement): 100% [place] % of Healthy tissue: Undermining: No Tunneling: No Tendon/bone exposed: NO Wound Edge/Margins: Well-defined wound edges and Edge attached to base Periwound Tissue: [place], dry and intact, No fluctuance, induration or advancing soft tissue necrosis or ischemia Exudate: Nonr Consistency: None Odor:None Infection/Critical Colonization: N/A Localized s/s: None Systemic s/s: None Local/systemic Rx: None Wound Healing Status: Chronic Clinically presenting as: Healed Current topical treatment: Collagen Wound Number: 4 First Assessed Date: 10/14/17 Pre-existing: YES Location: Right Orientation: Anterior Distal Aec Wound Etiology: Venous Depth of Tissue Injury (Non-pressure): Full Thickness Diabetic Wounds:N/A Pressure Injury: N/A Pre-Measurements Initial (First Visit): 1.3 cm length x 1.2 cm width x 0.1 cm depth Post Measurement (Current): 1.0 cm length x 1.0 cm width x 0.1 cm depth % Healing Rate/#Weeks: Week 15 -- 33.3! Wound Bed (Post-debridement): 100% [place] % of Healthy tissue: Undermining: No Tunneling: No Tendon/bone exposed: NO Wound Edge/Margins: Well-defined wound edges and Edge attached to base Periwound Tissue: [place], dry and intact, No fluctuance, induration or [...] worsening symptoms. Luis Simons CNP Charge Capture: [id number]; [id number] CNOV Observed: 02/10/2018 Status: COMPLETED Source: [facility] 1:00 PM [facility] REPOSITORY Office Visit (PLWDMR) ROSA BELTRAN ([id number]) 1935 F Date Time Provider Department 02/10/18 1:00 PM LUIS SIMONS (LOI) PLWDMR During your visit today, we recorded the following information about you: Luis Simons APRN.CNP 05/01/2018 3:16 PM Addendum DATE OF VISIT: 02/10/2018 REASON FOR VISIT: Non-healing lower extremity wound. HISTORY OF PRESENT ILLNESS: Rosa Beltran is a 81 year old female who presents to the [facility] for further [...] followed by Dr. Jaskaran Chance at the [facility]. It was felt that her home support system was inadequate and that she may not have the resources in her home environment to appropriately care for her needs. In this regard, a social work lecturer consultation had been recommended on several occassions, but patient apparently insisted on remaining in her home environment despite that there was thought that is may be less than optimal. The patient is here at the [facility] for a second opinion [...] 10/08/2016 - COPD (chronic obstructive pulmonary disease) ([facility]) - Depressive disorder 12/29/2016 - Disruption of surgical wound 09/2015 Right tibia - Dorsalgia 12/29/2016 - Dyslipidemia - Gastric bypass status for obesity 12/29/2016 - Gastroesophageal reflux disease without esophagitis 10/08/2016 - HTN (hypertension) - Muscular weakness 12/29/2016 - Primary osteoarthritis involving multiple joints 12/29/2016 - Pure hypercholesterolemia - Rheumatoid arthritis ([facility]) 2007 - Sleep apnea - Stented coronary artery 12/29/2016 PAST SURGICAL HISTORY Procedure Laterality Date - CC CORONARY STENT 11/20/2012 [facility] - CC CORONARY STENT 12/20/2014 [facility], Cfx - SECTION HX - COLONOSCOPY 06/10/2017 [facility] [place] [facility], Nonspecific cecal ulcer - GASTRIC BYPASS HX 1986 - HERNIA REPAIR HX 1987; 1989 - PAST SURGICAL HISTORY OF Right 09/2015 right tibia fracture ORIF - PAST SURGICAL HISTORY OF Right 01/20/2016 Removal of hardware, right tibia - TOTAL KNEE REPLACEMENT Right 2003 [facility] Gen. - TOTAL KNEE REPLACEMENT Left 2004 [facility] Gen. MEDICATIONS ergocalciferol, vitamin D2, [...] Rubor of Dependency: Negative (Y) Positive (N) [place] Examination: Comments: Measurements: Right Calf: 54.5 cm Right Ankle: 32.5 cm Left Calf: 39.5 cm Left Ankle: 31.3 cm Neuro: Alert AND oriented x3, PROCESS IMPROVEMENT ANALYST II-XII grossly intact, reflexes 2+ and symmetric, [...] No acute fracture or bony destruction. ? Automatic Grinder Operator: DWIGHT ? Transcribe Date/Time: Oct 14 2017 [...] No acute fracture or bony destruction. ? Automatic Grinder Operator: DWIGHT ? Transcribe Date/Time: Oct 14 2017 [...] -- Week 5 Wound Bed (Post-debridement): 100% [place] % of Healthy tissue: Undermining: No Tunneling: No Tendon/bone exposed: NO Wound Edge/Margins: Well-defined wound edges and Edge attached to base Periwound Tissue: [place], dry and intact, No fluctuance, induration or [...] 15 -- 33.3! Wound Bed (Post-debridement): 100% [place] % of Healthy tissue: Undermining: No Tunneling: No Tendon/bone exposed: NO Wound Edge/Margins: Well-defined wound edges and Edge attached to base Periwound Tissue: [place], dry and intact, No fluctuance, induration or [...] worsening symptoms. Luis Simons CNP Charge Capture: [id number]; [id number] Luis Simons APRN.LOI 05/01/2018 3:18 PM Addendum [...] saline and dressings were applied. Charge Capture: [id number]; [id number] Tiffanie Humphrey, RN, RN 02/10/2018 1:54 PM Addendum Nursing [...] following changes to the Wound Center at [phone] or go to the Emergency Department: ? [...] for 02/14/18 Rx: Dakins solution Luis Simons CNP/mjl Referring Provider: SELF [[id number]] Allergies As of [...] CULTURE AND GRAM STAIN [SQWCUL] Order #: [id number]. #:[id number] Prescriptions as of 02/10/2018 Sig: X METOLAZONE [...] following changes to the Wound Center at [phone] or go to the Emergency Department: ? [...] for 02/14/18 Rx: Dakins solution Luis Simons CNP/mjl Visit Notes: >> Tiffanie (Rn) ELENA Humphrey [...] 02/20/18 PROCEDURE Observed: 02/10/2018 Status: COMPLETED Source: [facility] 1:00 PM [facility] OTHER [facility] REPOSITORY HNO ID: [id number] Author: Luis Lyles (Jacker Feeder) Carla Service: (none) Author Type: Nurse Practitioner [...] saline and dressings were applied. Charge Capture: [id number]; [id number] PROTIME Collected: 02/07/2018 Status: F Source: ROUND TOP 1:30 PM [facility] REPOSITORY TYPE CODE TESTS RESULT OUT OF RANGE REFERENCE UNITS LAB PSEC 9.7-13.0 sec High PT Sec 14.1 LAB INR 0.9-1.3 High PT INR 1.4 Result Comment: Vitamin K Antagonist (VKA) Therapeutic Range: INR 2 to 3 (Target INR of 2.5) Note: For patients treated with VKA drugs, such as warfarin, the [place] [employer] 2012 Guideline recommends [...] Chest 2012, 141:7S-47S Genevieve RA, et al. [facility] 2017, 70: 252-289 Performed By: #### PT, BMP #### [facility] [address] [place] [address] BASIC METABOLIC PANL Collected: 02/07/2018 Status: F Source: ROUND TOP 1:30 PM [facility] REPOSITORY TYPE CODE TESTS RESULT OUT OF REFERENCE UNITS RANGE LAB GLU 74-99 mg/dL Glucose 92 Result Comment: The [place] [employer] Association (ADA) provides guidance for cutoff [...] Standards of Medical Care in Diabetes 2016, [place] [employer]. Diabetes Care. 2016.39(Suppl 1). LAB [...] GFR. Performed By: #### PT, BMP #### [facility] [address] [place] [id number] PROGRESS Observed: 02/07/2018 Status: COMPLETED Source: ROUND TOP 12:43 PM [facility] OTHER CAMPUS REPOSITORY HNO ID: [id number] Author: Corey Mckeon Service: (none) Author Type: Physician Type: Progress Notes Filed: 02/07/2018 12:47 PM Note Text: PERTINENT CARDIAC HISTORY ASHD - PCI LAD 2012, PCI Cx 2015 Takatsubo? HL HTN Lymphedema CHF Atrial fib Bilateral radial artery occlusion? ADHERENCE TO GUIDELINES ANKIT-I or ARB for HF with prior LVEF<40 (NQF 0081) - N/A ASA or Plavix for ASHD (NQF 0067) - met Beta louann for ASHD with prior [place] or prior LVEF<40 (NQF 0070) - met [...] MD February 07, 2018 12:43 PM CC: MD OSEI MckennaOV Observed: 02/07/2018 Status: COMPLETED Source: ROUND TOP 11:30 AM [facility] OTHER [facility] REPOSITORY Office Visit (AGCARDWST) ROSA BELTRAN ([id number]) 1935 F Date Time Provider Department 02/07/18 [...] met Beta louann for ASHD with prior [place] or prior LVEFANDlt;40 (NQF 0070) - met [...] Mani Newman MD Referring Provider: COREY MCKEON [[id number]] Allergies As of Date: 02/07/2018 (No Known Allergies) Date Reviewed: 02/03/2018 Reviewed by: Carolina Vega Doors Prefitter - Fully Assessed Reason for Visit: Established Patient [175] Cmt: Hospital follow-up Primary Visit Diagnosis:ASHD (arteriosclerotic heart disease) [I25.10] Other Visit Diagnosis:Chronic diastolic CHF (congestive heart failure) (HCC) [I50.32] Order(s):BASIC METABOLIC PNL [SQBMP] Order #: [id number] FUTURE Prescriptions as of 02/07/2018 Sig: METOLAZONE [...] 02/07/2018 11:44 AM >> ETHAN MONSALVE RN Tue Feb 07, 2018 11:44 AM no longer [...] 02/07/18 PROGRESS Observed: 02/03/2018 Status: COMPLETED Source: ROUND TOP 11:31 AM [facility] REPOSITORY HNO ID: [id number] Author: Jina Rodriguez) Older Service: (none) Author Type: Nurse Practitioner Type: Progress Notes Filed: 02/03/2018 1:36 PM Note Text: CC: Patient presents with: [facility] Follow up HPI Rosa Beltran is a 82 year old female who presents today for hospital follow-up. Reason for visit: 10 lb weight gain and SOB Which facility: [facility] Date of visit: 01/25/18 to 01/27/18 [...] hypothyroidism - Acute respiratory failure with hypoxia ([facility]) 09/30/2017 - Atrial fibrillation ([facility]) - CAD (coronary artery disease) Dr. Brenda [...] 10/08/2016 - COPD (chronic obstructive pulmonary disease) ([facility]) - Depressive disorder 12/29/2016 - Disruption of surgical wound 09/2015 Right tibia - Dorsalgia 12/29/2016 - Dyslipidemia - Gastric bypass status for obesity 12/29/2016 - Gastroesophageal reflux disease without esophagitis 10/08/2016 - HTN (hypertension) - Muscular weakness 12/29/2016 - Primary osteoarthritis involving multiple joints 12/29/2016 - Pure hypercholesterolemia - Rheumatoid arthritis ([facility]) 2007 - Sleep apnea - Stented coronary artery 12/29/2016 PAST SURGICAL HISTORY Procedure Laterality Date - CC CORONARY STENT 11/20/2012 KIMMY LAD - CC CORONARY STENT 12/20/2014 KIMMY, Cfx - SECTION HX - COLONOSCOPY 06/10/2017 [facility] [place] [facility], Nonspecific cecal ulcer - GASTRIC BYPASS HX 1986 - HERNIA REPAIR HX 1987; 1989 - PAST SURGICAL HISTORY OF Right 09/2015 right tibia fracture ORIF - PAST SURGICAL HISTORY OF Right 01/20/2016 Removal of hardware, right tibia - TOTAL KNEE REPLACEMENT Right 2003 [facility] Gen. - TOTAL KNEE REPLACEMENT Left 2004 [facility] Gen. ALLERGIES Review of patient's [...] Patient agreeable to treatment plan. Jina Ny APRN.LOI FRANZOV Observed: 02/03/2018 Status: COMPLETED Source: ROUND TOP 11:20 AM [facility] REPOSITORY Office Visit (INTMWS) ROSA BELTRAN ([id number]) 1935 F Date Time Provider Department 02/03/18 11:20 AM JINA NY (LOI) INTMWS During your visit today, we recorded the following information about you: Temperature Pulse Respiration Blood pressure 97.9 degrees 75/minute 20/minute 142/72 Weight 95.7 kg Jina Ny APRN.TESTING COORDINATOR 02/03/2018 1:36 PM Signed CC: Patient presents with: [facility] Follow up HPI Rosa Beltran is a 82 year old female who presents today for hospital follow-up. Reason for visit: 10 lb weight gain and SOB Which facility: [facility] Date of visit: 01/25/18 to 01/27/18 [...] with hypoxia (HCC) 09/30/2017 - Atrial fibrillation ([facility]) - CAD (coronary artery disease) Dr. Brenda [...] 10/08/2016 - COPD (chronic obstructive pulmonary disease) ([facility]) - Depressive disorder 12/29/2016 - Disruption of surgical wound 09/2015 Right tibia - Dorsalgia 12/29/2016 - Dyslipidemia - Gastric bypass status for obesity 12/29/2016 - Gastroesophageal reflux disease without esophagitis 10/08/2016 - HTN (hypertension) - Muscular weakness 12/29/2016 - Primary osteoarthritis involving multiple joints 12/29/2016 - Pure hypercholesterolemia - Rheumatoid arthritis ([facility]) 2007 - Sleep apnea - Stented coronary artery 12/29/2016 PAST SURGICAL HISTORY Procedure Laterality Date - CC CORONARY STENT 11/20/2012 KIMMY LAD - CC CORONARY STENT 12/20/2014 KIMMY, Cfx - SECTION HX - COLONOSCOPY 06/10/2017 [facility] [place] [facility], [facility] cecal ulcer - GASTRIC BYPASS HX 1987 - HERNIA REPAIR HX 1988; 1990 - PAST SURGICAL HISTORY OF Right 09/2015 right tibia fracture ORIF - PAST SURGICAL HISTORY OF Right 01/20/2016 Removal of hardware, right tibia - TOTAL KNEE REPLACEMENT Right 2003 [facility] Gen. - TOTAL KNEE REPLACEMENT Left 2004 [facility] Gen. ALLERGIES Review of patient's [...] Date Reviewed: 02/03/2018 Reviewed by: Carolina Vega Doors Prefitter - Fully Assessed Reason for Visit: [facility] Follow up [Other] Primary Visit Diagnosis:Acute on [...] 02/03/18 PROGRESS Observed: 01/28/2018 Status: COMPLETED Source: ROUND TOP 9:05 AM [facility] [place] REPOSITORY HNO ID: [id number] Author: Mani Newman Service: (none) Author Type: Physician Type: Progress Notes Filed: 01/28/2018 9:08 AM Note Text: Addendum: It seems patient had not filled furosemide at [facility] since April 2017. Medication adherence needs monitored. Noted patient was referred to ER last week. Mani Newman MD BMP Collected: 01/27/2018 Status: F [facility] REPOSITORY TYPE CODE TESTS RESULT [...] 8.3 Performed By: #### BMP, GFR #### [place] [address] .GFR Collected: 01/27/2018 Status: F Source: [facility] 5:21 AM [facility] REPOSITORY TYPE CODE TESTS RESULT OUT OF REFERENCE UNITS RANGE LAB GFRAA(LOINC ml/min/1.73 ) sqm GFR 53 [place]ican Result Comment: GFR Population mean for , [...] meters Performed By: #### BMP, GFR #### [address] [address] PRO Collected: 01/26/2018 Status: F Source: [facility] 3:44 PM [facility] REPOSITORY TYPE CODE TESTS RESULT [...] - 3.5 Performed By: #### PRO #### [address] [address] .GFR Collected: 01/26/2018 Status: F Source: JERMA[facility] 5:04 AM [facility] REPOSITORY TYPE CODE TESTS RESULT OUT OF REFERENCE UNITS RANGE LAB GFRAA(LOINC ml/min/1.73 ) sqm GFR 61 [place] Result Comment: GFR Population mean for , [...] meters Performed By: #### GFR, GRETCHEN #### [address] [address] BMP Collected: 01/26/2018 Status: F Source: [facility] 5:04 AM [facility] REPOSITORY TYPE CODE TESTS RESULT [...] Calcium Lvl 8.5 Performed By: #### GFR, GRETCHEN #### [address] [address] XR CHEST 2 VIEWS Observed: 01/25/2018 Status: F Source: [facility] 2:07 PM [facility] REPOSITORY ORIGINAL XR CHEST 2 VIEWS CLINICAL [...] Sood MD Electronically Signed By: Maria Elena Sood MD Dictated Date: 01/25/2018 2:13:54 PM Prelim Date: 01/25/2018 2:13:54 PM Sign Date: 01/25/2018 2:15:11 PM PRO Collected: 01/25/2018 Status: F Source: [facility] 1:58 PM [facility] REPOSITORY TYPE CODE TESTS RESULT [...] - 3.5 Performed By: #### PRO #### [address] [address] CBC Collected: 01/25/2018 Status: F Source: [facility] 1:53 PM [facility] REPOSITORY TYPE CODE TESTS RESULT [...] 7.4-10.4 fL MPV 9.0 Performed By: #### CBC, ADIFF, ANEU, TROP, GFR, PBNP, CMP #### [address] [address] .AUTO DIFF Collected: 01/25/2018 Status: F Source: [facility] 1:53 PM [facility] REPOSITORY TYPE CODE TESTS RESULT [...] 0.10 Absolute Performed By: #### CBC, ADIFF, ANEU, TROP, GFR, PBNP, CMP #### [address] [address] .NEUABS Collected: 01/25/2018 Status: F Source: [facility] 1:53 PM [facility] REPOSITORY TYPE CODE TESTS RESULT OUT OF REFERENCE UNITS RANGE LAB ANEU(LOINC) 2.85-6.16 10 3/mcL Neutrophil, 4.00 Absolute Performed By: #### CBC, ADIFF, ANEU, TROP, GFR, PBNP, CMP #### [address] [address] TROP Collected: 01/25/2018 Status: F Source: [facility] 1:53 PM [facility] REPOSITORY TYPE CODE TESTS RESULT OUT OF REFERENCE UNITS RANGE LAB TROP(LOINC) 0.00-0.30 ng/mL Troponin <0.30 Result Comment: Below measuring range >=0.30 Consistent with cardiac damage, increased clinical risk and possibility of myocardial infarction. Serial measurements, clinical history, appropriate symptoms and/or ECG changes may help assess possibility of [place]. *Other non-acute coronary syndrome conditions such as CHF, myocarditis, pulmonary emboli, sepsis and cardiac surgery could result in myocardial damage and increased troponin levels. Performed By: #### CBC, ADIFF, ANEU, TROP, GFR, PBNP, CMP #### [place] [address] [place], [place] [address] .GFR Collected: 01/25/2018 Status: F Source: [facility] 1:53 PM [facility] REPOSITORY TYPE CODE TESTS RESULT OUT OF REFERENCE UNITS RANGE LAB GFRAA(LOINC ml/min/1.73 ) sqm GFR 79 Jamaican Result Comment: GFR Population mean for , [...] mL/min/1.73 square meters Performed By: #### CBC, ADIFF, ANEU, TROP, GFR, PBNP, CMP #### [facility] [address] [place], [place] [address] PBNP Collected: 01/25/2018 Status: F Source: [facility] 1:53 PM [facility] REPOSITORY TYPE CODE TESTS RESULT OUT OF REFERENCE UNITS RANGE LAB PBNP(LOINC) 5.0-300.0 pg/mL High N-Terminal 3221.0 proBNP Result Comment: In the presence of acute dyspnea, CHF likely if: Age <50 years: >450 pg/mL Age 50-75 years: >900 pg/mL Age >75 years: >1800 pg/mL Performed By: #### CBC, ADIFF, ANEU, TROP, GFR, PBNP, CMP #### [facility] [address] [place], [place] [address] CMP Collected: 01/25/2018 Status: F Source: [facility] 1:53 PM [facility] REPOSITORY TYPE CODE TESTS RESULT [...] 10-35 IU/L ALT/SGPT 10 Performed By: #### CBC, ADIFF, ANEU, TROP, GFR, PBNP, CMP #### [place] [address] [place], [place] [address] PROGRESS Observed: 01/20/2018 Status: COMPLETED Source: ROUND TOP 12:19 PM [facility] REPOSITORY HNO ID: [id number] Author: Mani Newman Service: (none) Author Type: Physician Type: Progress Notes Filed: 01/26/2018 8:17 AM Note Text: This note was created using Geewariter. Subjective Rosa Beltran is a 82 year [...] Anticoagulation monitored. 9. Coronary artery disease involving [place] heart without angina pectoris, unspecified vessel or [...] MD CNOV Observed: 01/20/2018 Status: COMPLETED Source: ROUND TOP 11:40 AM [facility] REPOSITORY Office Visit (INTMWS) ROSA BELTRAN ([id number]) 1935 F Date Time Provider Department 01/20/18 11:40 AM MANI NEWMAN INTMWS During your visit today, we recorded the following information about you: Pulse Respiration Blood pressure 76/minute 18/minute 144/86 Mani Newman MD 01/26/2018 8:17 AM Signed This note was created using Geewariter. Subjective Rosa Beltran is a 82 year [...] all her medications. Request medication profile from [facility]. 6. Lymphedema of both lower extremities - ICD9: 457.1, ICD10: I89.0 See #5. 7. Essential hypertension - ICD9: 401.9, ICD10: I10 - fair control - Continue current medication(s) - Verify medications. 8. Chronic atrial fibrillation (HCC) - ICD9: 427.31, ICD10: I48.2 Anticoagulation monitored. 9. Coronary artery disease involving [place] heart without angina pectoris, unspecified vessel or [...] seems patient had not filled furosemide at [facility] since April 2017. Medication adherence needs monitored. [...] fibrillation (HCC) [I48.2] Coronary artery disease involving [place] and [place] heart without angina pectoris, unspecified vessel or lesion type [I25.10] Physical debility [R53.81] Adjustment disorder with depressed mood [F43.21] Acquired hypothyroidism [E03.9] Ulcers of both lower extremities, unspecified ulcer stage (HCC) [L97.919, L97.929] Order(s):CONSULT TO ENT [3507] Order #: [id number]: 1 Prescriptions as of 01/20/2018 Sig: SPIRONOLACTONE [...] FIBULA 2V Observed: 01/13/2018 Status: F Source: ROUND TOP AP/LAT RT 1:08 PM CLINIC OTHER CAMPUS [...] lower leg. IMPRESSION: No significant interval change. Automatic Grinder Operator: DWIGHT Transcribe Date/Time: Jan 13 2018 4:29P Dictated by : HAO YORK DO This examination was interpreted and the report reviewed and electronically signed by: HAO YORK DO on Jan 13 2018 4:31PM EST [id number] BASIC METABOLIC PANL Collected: 01/13/2018 Status: F Source: ROUND TOP 12:00 PM [facility] [place] REPOSITORY TYPE CODE TESTS RESULT OUT OF REFERENCE UNITS RANGE LAB GLU 74-99 mg/dL High Glucose 108 Result Comment: The [place] [employer] Association (ADA) provides guidance for cutoff [...] Standards of Medical Care in Diabetes 2016, [place] [employer]. Diabetes Care. 2016.39(Suppl 1). LAB [...] actual GFR. Performed By: #### BMP #### [facility] [address] [place], [place] [address] PREALBUMIN Collected: 01/13/2018 Status: F Source: ROUND TOP 12:00 PM [facility] REPOSITORY TYPE CODE TESTS RESULT OUT OF REFERENCE UNITS RANGE LAB PREALB 17-36 mg/dL Low Prealbumin 16 Performed By: #### PREALB #### [facility] [address] [place], [place] [address] WOUND Observed: 01/13/2018 Status: F Source: ROUND TOP CULTURE/STAIN 11:30 AM [facility] OTHER CAMPUS REPOSITORY Smear Result - Many [...] <=0.5 F Performed By: #### WCUL #### [place] [address] Observed: 01/13/2018 Status: F Source: ROUND TOP ANAEROBE CULTURE 11:30 AM [facility] REPOSITORY Culture Result - Negative for anaerobes. Performed By: #### ANACUL #### [place] [address] Observed: 01/13/2018 Status: F Source: ROUND TOP FUNGAL CULTURE 11:30 AM [facility] REPOSITORY Culture Result - No Fungus isolated after 32 days Performed By: #### FCUL #### [place] [address] PROGRESS Observed: 01/13/2018 Status: COMPLETED Source: ROUND TOP 11:00 AM [facility] REPOSITORY HNO ID: [id number] Author: Luis Simons ([facility]) Service: (none) Author Type: Nurse Practitioner Type: Progress Notes Filed: 03/09/2018 10:29 AM Note Text: DATE OF VISIT: 01/13/2018 REASON FOR VISIT: Non-healing lower extremity wound. HISTORY OF PRESENT ILLNESS: Rosa Beltran is a 81 year old female who presents to the [facility] for further [...] followed by Dr. Jaskaran Chance at the [facility]. It was felt that her home support system was inadequate and that she may not have the resources in her home environment to appropriately care for her needs. In this regard, a social work lecturer consultation had been recommended on several occassions, but patient apparently insisted on remaining in her home environment despite that there was thought that is may be less than optimal. The patient is here at the [facility] for a second opinion [...] with hypoxia (HCC) 09/30/2017 - Atrial fibrillation ([facility]) - CAD (coronary artery disease) Dr. Brenda [...] 10/08/2016 - COPD (chronic obstructive pulmonary disease) ([facility]) - Depressive disorder 12/29/2016 - Disruption of [...] - TOTAL KNEE REPLACEMENT Right 2003 [facility] Gen. - TOTAL KNEE REPLACEMENT Left 2004 [facility] Gen. MEDICATIONS ergocalciferol, vitamin D2, [...] Rubor of Dependency: Negative (Y) Positive (N) [place] Examination: Comments: Measurements: Right Calf: 36.5 cm Right Ankle: 29 cm Left Calf: 37.5 cm Left Ankle: 24.2 cm Neuro: Alert AND oriented x3, PROCESS IMPROVEMENT ANALYST II-XII grossly intact, reflexes 2+ and symmetric, [...] No acute fracture or bony destruction. ? Automatic Grinder Operator: DWIGHT ? Transcribe Date/Time: Oct 14 2017 [...] No acute fracture or bony destruction. ? Automatic Grinder Operator: DWIGHT ? Transcribe Date/Time: Oct 14 2017 [...] -- Week 5 Wound Bed (Post-debridement): 100% [place] % of Healthy tissue: Undermining: No Tunneling: No Tendon/bone exposed: NO Wound Edge/Margins: Well-defined wound edges and Edge attached to base Periwound Tissue: [place], dry and intact, No fluctuance, induration or [...] worsening symptoms. Luis Simons CNP Charge Capture: [id number] CNOV Observed: 01/13/2018 Status: COMPLETED Source: ROUND TOP 11:00 AM [facility] OTHER CAMPUS REPOSITORY Office Visit (PLWDMR) ROSA BELTRAN ([id number]) 1935 F Date Time Provider Department 01/13/18 11:00 AM LUIS SIMONS, (LOI) PLWDMR During your visit today, we recorded the following information about you: Luis Simons APRN.CNP 03/09/2018 10:29 AM Addendum DATE OF VISIT: 01/13/2018 REASON FOR VISIT: Non-healing lower extremity wound. HISTORY OF PRESENT ILLNESS: Rosa Beltran is a 81 year old female who presents to the [facility] for further [...] followed by Dr. Jaskaran Chance at the [facility]. It was felt that her home support system was inadequate and that she may not have the resources in her home environment to appropriately care for her needs. In this regard, a social work lecturer consultation had been recommended on several occassions, but patient apparently insisted on remaining in her home environment despite that there was thought that is may be less than optimal. The patient is here at the [facility] for a second opinion [...] test 04/2014 inferoapical reversible ischemia,small LVEF 48-50%, C 12/2014 L main-normal, LAD widely patent, Cx diffuse mild luminal irregularities with 80%focal stenosis distal, RCA dominant with minimal luminal irregularities. PTCA and Promus premier KIMMY distal Cx 12/20/2014, RX aspirin and plavix - Cecal ulcer 06/10/2017 - Chronic atrial fibrillation (HCC) 10/08/2016 - COPD (chronic obstructive pulmonary disease) ([facility]) - Depressive disorder 12/29/2016 - Disruption of surgical wound 09/2015 Right tibia - Dorsalgia 12/29/2016 - Dyslipidemia - Gastric bypass status for obesity 12/29/2016 - Gastroesophageal reflux disease without esophagitis 10/08/2016 - HTN (hypertension) - Muscular weakness 12/29/2016 - Primary osteoarthritis involving multiple joints 12/29/2016 - Pure hypercholesterolemia - Rheumatoid arthritis ([facility]) 2007 - Sleep apnea - Stented coronary artery 12/29/2016 PAST SURGICAL HISTORY Procedure Laterality Date - CC CORONARY STENT 11/20/2012 KIMMY LAD - CC CORONARY STENT 12/20/2014 KIMMY, Cfx - SECTION HX - COLONOSCOPY 06/10/2017 [facility] [place] [facility], Nonspecific cecal ulcer - GASTRIC BYPASS HX 1986 - HERNIA REPAIR HX 1987; 1989 - PAST SURGICAL HISTORY OF Right 09/2015 right tibia fracture ORIF - PAST SURGICAL HISTORY OF Right 01/20/2016 Removal of hardware, right tibia - TOTAL KNEE REPLACEMENT Right 2003 [facility] Gen. - TOTAL KNEE REPLACEMENT Left 2004 [facility] Gen. MEDICATIONS ergocalciferol, vitamin D2, [...] Rubor of Dependency: Negative (Y) Positive (N) [place] Examination: Comments: Measurements: Right Calf: 36.5 cm Right Ankle: 29 cm Left Calf: 37.5 cm Left Ankle: 24.2 cm Neuro: Alert AND oriented x3, PROCESS IMPROVEMENT ANALYST II-XII grossly intact, reflexes 2+ and symmetric, [...] No acute fracture or bony destruction. ? Automatic Grinder Operator: DWIGHT ? Transcribe Date/Time: Oct 14 2017 [...] No acute fracture or bony destruction. ? Automatic Grinder Operator: DWIGHT ? Transcribe Date/Time: Oct 14 2017 [...] -- Week 5 Wound Bed (Post-debridement): 100% [place] % of Healthy tissue: Undermining: No Tunneling: No Tendon/bone exposed: NO Wound Edge/Margins: Well-defined wound edges and Edge attached to base Periwound Tissue: [place], dry and intact, No fluctuance, induration or [...] worsening symptoms. Luis Simons CNP Charge Capture: [id number] Luis Simons APRN.LOI 04/13/2018 2:45 PM Signed A procedural pause [...] dressings were applied. Peter Jason MA, MA 01/13/2018 11:42 AM Addendum WOUND CARE INSTRUCTIONS [...] following changes to the Wound Center at [phone] or go to the Emergency Department: ? [...] Copy of wound care instructions faxed to [facility] Home Care Lusi Simons CNP/csm Peter Jason MA, MA 01/13/2018 11:38 AM Signed Nursing Note Dx: [...] Copy of wound care instructions faxed to [facility] Home Care EDUCATION: The patient/family was instructed [...] intent to comply. Referring Provider: MANI NEWMAN [[id number]] Allergies As of Date: 01/13/2018 (No Known Allergies) Date Reviewed: 01/06/2018 Reviewed by: Megan Canales - Fully Assessed Primary Visit Diagnosis:Venous stasis ulcer of right lower leg with edema of right lower leg (HCC) [I83.019, I83.891, L97.919, R60.9] Other Visit Diagnosis:Venous insufficiency (chronic) (peripheral) [I87.2] Order(s):PREALBUMIN BLD [SQPREALB] Order #: [id number] FUTURE XR TIBIA FIBULA 2V AP/LAT RT [[id number]] Order #: [id number] FUTURE WOUND CULTURE AND GRAM STAIN [SQWCUL] Order #: [id number]. #:[id number] ANAEROBE CULTURE [SQANACUL] Order #: [id number]. #:[id number] FUNGAL CULTURE [SQFCUL] Order #: [id number]. #:[id number] Prescriptions as of 01/13/2018 Sig: X SPIRONOLACTONE [...] following changes to the Wound Center at [phone] or go to the Emergency Department: ? [...] Copy of wound care instructions faxed to [facility] Home Care Luis Simons TESTING COORDINATOR/csm Visit Notes: >> Peter (Tory) TORY Jason TueJan 13, 2018 11:14 AM Status: Signed [...] Copy of wound care instructions faxed to [facility] Home Care EDUCATION: The patient/family was instructed [...] 01/19/18 PROCEDURE Observed: 01/13/2018 Status: COMPLETED Source: [facility] 11:00 AM [facility] OTHER CAMPUS REPOSITORY HNO ID: [id number] Author: Luis Lyles (Jacker Feeder) Carla Service: (none) Author Type: Nurse Practitioner [...] BASIC PANEL Collected: 01/11/2018 Status: F Source: [facility] 2:30 PM HEALTH SYSTEM REPOSITORY TYPE CODE [...] Gap 12 Performed By: #### P8 #### [facility] [address] [place] [address] MDRD GFR Collected: 01/11/2018 Status: F Source: [facility] 2:30 PM HEALTH SYSTEM REPOSITORY TYPE CODE TESTS RESULT OUT OF RANGE REFERENCE UNITS LAB GFRFN(LOINC >60mL/min/1.73m ) 2 eGFR >60 Result Comment: If the patient is , multiply the result by 1.210. Performed By: #### GFR #### [place] [address] PROGRESS Observed: 01/06/2018 Status: COMPLETED Source: [facility] 1:51 PM CLINIC OTHER CAMPUS REPOSITORY O ID: [id number] Author: Corey Mckeon Service: (none) Author Type: [...] met Beta louann for ASHD with prior [place] or prior LVEF<40 (NQF 0070) - met [...] treatment plan. This note was generated using [employer] voice recognition system, and there may be [...] 10/08/2016 - COPD (chronic obstructive pulmonary disease) ([facility]) - Depressive disorder 12/29/2016 - Disruption of [...] - TOTAL KNEE REPLACEMENT Right 2003 [facility] Gen. - TOTAL KNEE REPLACEMENT Left 2004 [facility] Gen. No family history on file. 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 In [facility] for one year, and [facility] before that. Discharged home 2015. Lives alone [...] MD CNOV Observed: 01/06/2018 Status: COMPLETED Source: [facility] 1:30 PM CLINIC OTHER CAMPUS REPOSITORY Office Visit (AGCARDWST) ROSA BELTRAN ([id number]) 1935 F Date Time Provider Department 01/06/18 1:30 PM COREY MCKEON During your visit today, we recorded the [...] met Beta louann for ASHD with prior [place] or prior LVEFANDlt;40 (NQF 0070) - met [...] treatment plan. This note was generated using [employer] voice recognition system, and there may be [...] 10/08/2016 - COPD (chronic obstructive pulmonary disease) (FORM[facility]LY [facility]) - Depressive disorder 12/29/2016 - Disruption of surgical wound 09/2015 Right tibia - Dorsalgia 12/29/2016 - Dyslipidemia - Gastric bypass status for obesity 12/29/2016 - Gastroesophageal reflux disease without esophagitis 10/08/2016 - HTN (hypertension) - Muscular weakness 12/29/2016 - Primary osteoarthritis involving multiple joints 12/29/2016 - Pure hypercholesterolemia - Rheumatoid arthritis ([facility]LY [facility]) 2007 - Sleep apnea - Stented coronary [...] - TOTAL KNEE REPLACEMENT Right 2003 [facility] Gen. - TOTAL KNEE REPLACEMENT Left 2004 [facility] Gen. No family history on file. 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 In [facility] for one year, and [facility] before that. Discharged home 2015. Lives alone [...] the following areas and commit to making residential changes. EAT A WHOLE FOOD, PLANT BASED [...] Modules accepted: Orders Referring Provider: COREY MCKEON [[id number]] Allergies As of Date: 01/06/2018 (No Known Allergies) Date Reviewed: 01/06/2018 Reviewed by: Megan Canales - Fully Assessed Reason for Visit: Recheck [92] Primary Visit Diagnosis:ASHD (arteriosclerotic heart disease) [I25.10] Other Visit Diagnosis:Chronic systolic CHF (congestive heart failure) (HCC) [I50.22] Order(s):spironolactone (ALDACTONE) 25 mg tabletTake 1 tablet by mouth twice daily.Disp: Rfl: BASIC METABOLIC PNL [SQBMP] Order #: [id number] FUTURE Prescriptions as of 01/06/2018 Sig: SPIRONOLACTONE [...] the following areas and commit to making tank terminal gauger changes. EAT A WHOLE FOOD, PLANT BASED [...] 01/06/18 PROGRESS Observed: 12/30/2017 Status: COMPLETED Source: [facility] 1:45 PM CLINIC OTHER CAMPUS REPOSITORY HNO ID: [id number] Author: Luis Rodriguez) LOI Simons Service: (none) Author Type: Nurse Practitioner Type: Progress Notes Filed: 01/03/2018 11:03 AM Note Text: DATE OF VISIT: 12/30/2017 REASON FOR VISIT: Non-healing lower extremity wound. HISTORY OF PRESENT ILLNESS: Rosa Beltran is a 81 year old female who presents to the [facility] for further [...] followed by Dr. Jaskaran Chance at the [facility]. It was felt that her home support system was inadequate and that she may not have the resources in her home environment to appropriately care for her needs. In this regard, a social work lecturer consultation had been recommended on several occassions, but patient apparently insisted on remaining in her home environment despite that there was thought that is may be less than optimal. The patient is here at the [facility] for a second opinion [...] 10/08/2016 - COPD (chronic obstructive pulmonary disease) ([facility]) - Depressive disorder 12/29/2016 - Disruption of surgical wound 09/2015 Right tibia - Dorsalgia 12/29/2016 - Dyslipidemia - Gastric bypass status for obesity 12/29/2016 - Gastroesophageal reflux disease without esophagitis 10/08/2016 - HTN (hypertension) - Muscular weakness 12/29/2016 - Primary osteoarthritis involving multiple joints 12/29/2016 - Pure hypercholesterolemia - Rheumatoid arthritis ([facility]) 2007 - Sleep apnea - Stented coronary artery 12/29/2016 PAST SURGICAL HISTORY Procedure Laterality Date - CC CORONARY STENT 11/20/2012 KIMMY LAD - CC CORONARY STENT 12/20/2014 KIMMY, Cfx - SECTION HX - COLONOSCOPY 06/10/2017 [facility], Nonspecific cecal ulcer - GASTRIC BYPASS HX 1986 - HERNIA REPAIR HX 1987; 1989 - PAST SURGICAL HISTORY OF Right 09/2015 right tibia fracture ORIF - PAST SURGICAL HISTORY OF Right 01/20/2016 Removal of hardware, right tibia - TOTAL KNEE REPLACEMENT Right 2003 [facility] Gen. - TOTAL KNEE REPLACEMENT Left 2004 [facility] Gen. MEDICATIONS ergocalciferol, vitamin D2, [...] Rubor of Dependency: Negative (Y) Positive (N) [place] Examination: Comments: Measurements: Right Calf: 36.5 cm Right Ankle: 29 cm Left Calf: 37.5 cm Left Ankle: 24.2 cm Neuro: Alert AND oriented x3, PROCESS IMPROVEMENT ANALYST II-XII grossly intact, reflexes 2+ and symmetric, [...] No acute fracture or bony destruction. ? Automatic Grinder Operator: DWIGHT ? Transcribe Date/Time: Oct 14 2017 [...] No acute fracture or bony destruction. ? Automatic Grinder Operator: DWIGHT ? Transcribe Date/Time: Oct 14 2017 [...] -- Week 5 Wound Bed (Post-debridement): 100% [place] % of Healthy tissue: Undermining: No Tunneling: No Tendon/bone exposed: NO Wound Edge/Margins: Well-defined wound edges and Edge attached to base Periwound Tissue: [place], dry and intact, No fluctuance, induration or [...] worsening symptoms. Luis Simons CNP Charge Capture: [id number] PROCEDURE Observed: 12/30/2017 Status: COMPLETED Source: [facility] 1:45 PM CLINIC OTHER CAMPUS REPOSITORY HNO ID: [id number] Author: Luis Rodriguez) LOI Simons Service: (none) [...] applied. CNOV Observed: 12/30/2017 Status: COMPLETED Source: [facility] 1:45 PM [facility] OTHER CAMPUS REPOSITORY Office Visit (PLWDMR) ROSA BELTRAN ([id number]) 1935 F Date Time Provider Department 12/30/17 1:45 PM LUIS SIMONS, (LOI) [facility] During your visit today, we recorded the following information about you: Temperature Pulse Respiration Blood pressure 98.1 degrees 59/minute 15/minute 143/78 Luis Simons CNP, LOI 01/10/2018 2:27 PM Incomplete Revision DATE OF VISIT: 12/30/2017 REASON FOR VISIT: Non-healing lower extremity wound. HISTORY OF PRESENT ILLNESS: Rosa Beltran is a 81 year old female who presents to the [facility] for further [...] followed by Dr. Jaskaran Chance at the [facility]. It was felt that her home support system was inadequate and that she may not have the resources in her home environment to appropriately care for her needs. In this regard, a social work lecturer consultation had been recommended on several occassions, but patient apparently insisted on remaining in her home environment despite that there was thought that is may be less than optimal. The patient is here at the [facility] for a second opinion [...] with hypoxia (HCC) 09/30/2017 - Atrial fibrillation ([facility]) - CAD (coronary artery disease) Dr. Brenda [...] 10/08/2016 - COPD (chronic obstructive pulmonary disease) ([facility]) - Depressive disorder 12/29/2016 - Disruption of [...] Cfx - SECTION HX - COLONOSCOPY 06/10/2017 [facility], Nonspecific cecal ulcer - GASTRIC BYPASS HX 1987 - HERNIA REPAIR HX 1988; 1989 - PAST SURGICAL HISTORY OF Right 09/2015 right tibia fracture ORIF - PAST SURGICAL HISTORY OF Right 01/20/2016 Removal of hardware, right tibia - TOTAL KNEE REPLACEMENT Right 2003 [facility] Gen. - TOTAL KNEE REPLACEMENT Left 2004 [facility] Gen. MEDICATIONS ergocalciferol, vitamin D2, [...] Rubor of Dependency: Negative (Y) Positive (N) [place] Examination: Comments: Measurements: Right Calf: 36.5 cm Right Ankle: 29 cm Left Calf: 37.5 cm Left Ankle: 24.2 cm Neuro: Alert ANDamp; oriented x3, PROCESS IMPROVEMENT ANALYST II-XII grossly intact, reflexes 2+ and symmetric, [...] No acute fracture or bony destruction. ? Automatic Grinder Operator: PSCB ? Transcribe Date/Time: Oct 14 2017 [...] No acute fracture or bony destruction. ? Automatic Grinder Operator: DWIGHT ? Transcribe Date/Time: Oct 14 2017 [...] -- Week 5 Wound Bed (Post-debridement): 100% [place] % of Healthy tissue: Undermining: No Tunneling: No Tendon/bone exposed: NO Wound Edge/Margins: Well-defined wound edges and Edge attached to base Periwound Tissue: [place], dry and intact, No fluctuance, induration or [...] worsening symptoms. Luis Simons CNP Charge Capture: [id number] Luis Simons CNP, TESTING COORDINATOR 01/03/2018 11:03 AM In Progress DATE OF VISIT: 12/30/2017 REASON FOR VISIT: Non-healing lower extremity wound. HISTORY OF PRESENT ILLNESS: Rosa Beltran is a 81 year old female who presents to the [facility] for further [...] followed by Dr. Jaskaran Chance at the [facility]. It was felt that her home support system was inadequate and that she may not have the resources in her home environment to appropriately care for her needs. In this regard, a social work lecturer consultation had been recommended on several occassions, but patient apparently insisted on remaining in her home environment despite that there was thought that is may be less than optimal. The patient is here at the [facility] for a second opinion [...] hypothyroidism - Acute respiratory failure with hypoxia ([facility]) 09/30/2017 - Atrial fibrillation ([facility]) - CAD (coronary artery disease) Dr. Brenda [...] 10/08/2016 - COPD (chronic obstructive pulmonary disease) ([facility]) - Depressive disorder 12/29/2016 - Disruption of surgical wound 09/2015 Right tibia - Dorsalgia 12/29/2016 - Dyslipidemia - Gastric bypass status for obesity 12/29/2016 - Gastroesophageal reflux disease without esophagitis 10/08/2016 - HTN (hypertension) - Muscular weakness 12/29/2016 - Primary osteoarthritis involving multiple joints 12/29/2016 - Pure hypercholesterolemia - Rheumatoid arthritis ([facility]) 2007 - Sleep apnea - Stented coronary [...] - TOTAL KNEE REPLACEMENT Right 2003 [facility] Gen. - TOTAL KNEE REPLACEMENT Left 2004 [facility] Gen. MEDICATIONS ergocalciferol, vitamin D2, [...] Rubor of Dependency: Negative (Y) Positive (N) [place] Examination: Comments: Measurements: Right Calf: 36.5 cm Right Ankle: 29 cm Left Calf: 37.5 cm Left Ankle: 24.2 cm Neuro: Alert ANDamp; oriented x3, PROCESS IMPROVEMENT ANALYST II-XII grossly intact, reflexes 2+ and symmetric, [...] No acute fracture or bony destruction. ? Automatic Grinder Operator: DWIGHT ? Transcribe Date/Time: Oct 14 2017 [...] No acute fracture or bony destruction. ? Automatic Grinder Operator: DWIGHT ? Transcribe Date/Time: Oct 14 2017 [...] -- Week 5 Wound Bed (Post-debridement): 100% [place] % of Healthy tissue: Undermining: No Tunneling: No Tendon/bone exposed: NO Wound Edge/Margins: Well-defined wound edges and Edge attached to base Periwound Tissue: [place], dry and intact, No fluctuance, induration or [...] worsening symptoms. Luis Simons CNP Charge Capture: [id number] Luis Simons CNP, TESTING COORDINATOR 01/03/2018 11:03 AM Signed A procedural pause [...] dressings were applied. Tiffanie Humphrey, RN, RN 12/30/2017 2:54 PM Addendum Nursing [...] Copy of wound care instructions faxed to [facility] Home Care EDUCATION: The patient/family was instructed [...] following changes to the Wound Center at [phone] or go to the Emergency Department: ? [...] Copy of wound care instructions faxed to [facility] Home Care Luis Simons CNP/mjl Referring Provider: MANI NEWMAN [[id number]] Allergies As of Date: 12/30/2017 (No Known [...] following changes to the Wound Center at [phone] or go to the Emergency Department: ? [...] Copy of wound care instructions faxed to [facility] Home Care Luis Simons TESTING COORDINATOR/mjl Visit Notes: >> Tiffanie (Rn) ELENA Humphrey [...] Copy of wound care instructions faxed to [facility] Home Care EDUCATION: The patient/family was instructed [...] 01/03/18 PROGRESS Observed: 12/26/2017 Status: COMPLETED Source: ROUND TOP 1:51 PM [facility] REPOSITORY HNO ID: [id number] Author: Maritza Tian [facility] Service: (none) Author Type: Registered Nurse Type: Progress Notes Filed: 12/26/2017 1:57 PM Note Text: TRANSITION CARE MANAGEMENT (TCM) INITIAL CONTACT Provider Action/FYI: Pt feeling well. Grateful for call to F/U- she stated she feels much better after call. Has F/U 12/29. Initial contact with patient post discharge, spoke to Rosa. Patient identified by name and . SUMMARY: -Pt discharged from [facility] on 12/21/17. Adm 12/19 -Follow up [...] EF. ?? ?Pt will have HH from [facility] Visiting Nurse has Personal Touch will be closing office here and wound center at [place]. ANA Observed: 12/22/2017 Status: COMPLETED Source: [place] 12:00 AM [facility] REPOSITORY Patient Outreach (INTMWS) ROSA BELTRAN ([id number]) 1935 F Date Time Provider Department 12/22/17 MARITZA RUSSELL During your visit today, we recorded the following information about you: Maritza Tian RN 12/26/2017 1:57 PM Signed TRANSITION CARE MANAGEMENT (TCM) INITIAL CONTACT Provider Action/FYI: Pt feeling well. Grateful for call to F/U- she stated ANDquot;she feels much betterANDquot; after call. Has F/U 12/29. Initial contact with patient post discharge, spoke to Rosa. Patient identified by name and . SUMMARY: -Pt discharged from [facility] on 12/21/17. Adm 12/19 -Follow up [...] EF. ?? ?Pt will have HH from [facility] Visiting Nurse has Personal Touch will be closing office here and wound center at [place]. Allergies As of Date: 12/22/2017 (No Known Allergies) Date Reviewed: 12/21/2017 Reviewed by: Anat (Elena) ELENA Cheung - Fully Assessed Reason for Visit: [facility] Follow Up [[id number]] Prescriptions as of 12/22/2017 Sig: METOPROLOL TARTRATE [...] [Z51.81, Z79*INVALID FOR* Priority: Mild More... ANASARCA/HYPOXIA 12/1/17 ADMISSION SUMMARY [Z9*INVALID FOR* Priority: Very Severe [...] BLOOD SCREEN Collected: 12/21/2017 Status: F Source: [facility] 4:40 PM CLINIC OTHER CAMPUS REPOSITORY TYPE CODE TESTS RESULT OUT OF REFERENCE UNITS RANGE LAB OBSRCE Occult Stool Blood Source: LAB OBSC Occult Negative Blood Screen Performed By: #### OBSCN #### [facility] [address] [facility] [phone] CNDS Observed: 12/21/2017 Status: COMPLETED Source: ROUND [facility] 3:58 PM CLINIC OTHER CAMPUS REPOSITORY HNO ID: [id number] Author: Kenya Wilson Service: Hospital Medicine Author [...] Provider Department Center 01/06/2018 1:30 PM Corey Mckeon AGCARDWST [facility] 03/06/2018 2:20 PM Mani Newman INTMWS [facility] 03/13/2018 12:40 PM Ty Beckman PODIWS [facility] Total Discharge time: 32 minutes. Signature: Kenya Wilson MD Date: December 21, 2017 Time: 3:58 PM CASE MANAGEM Observed: 12/21/2017 Status: COMPLETED Source: [facility]OUND [facility] 3:53 PM CLINIC OTHER CAMPUS REPOSITORY HNO ID: [id number] Author: Ayanna ParksRn) ELENA Garcia Service: Case Management Author Type: Registered Nurse Type: Care Mgt Progress Note Filed: 12/21/2017 4:08 PM Note Text: CARE MANAGEMENT DISCHARGE NOTE SERVICE DATE: 12/21/2017 SERVICE TIME: 3:53 PM LOS: 2 days Admission Date: 12/19/2017 DISCHARGE ARRANGEMENT (list agency and phone number) Home care Provider:[facility] Pt has Chronic 3L. CAREGIVER ASSESSMENT: Caregiver is ready, willing and able to meet the patient's needs as recommended by the inter-professional team? Yes Patient's transition needs and plan for meeting these needs: self care, daughter Does the patient have an acute stroke diagnosis, or has the patient had a stroke during this admission? No HANDOFF COMMUNICATION: bedside RN Tina Beltran (DIL )[phone] (M), ETA 7pm TRANSPORTATION ARRANGEMENTS: Car daughter in law (DIL) ADDITIONAL CONTACT RESOURCES: Discharge Information ED to Hosp-Admission (Current) from 12/19/2017 in [facility] Agency Hang w/ No IM 2 days SIGNATURE: Ayanna Garcia RN PATIENT NAME: Rosa Beltran DATE: December 21, 2017 TIME: 3:53 PM PAGER/CONTACT #: [phone] ALLIED HEALTH Observed: 12/21/2017 Status: COMPLETED Source: [facility] 2:45 PM CLINIC OTHER CAMPUS REPOSITORY HNO ID: [id number] Author: Slick De Leon (Chaplain) Service: Spiritual Care Author Type: Care Navigator Type: Allied Health Filed: 12/21/2017 4:13 PM [...] needs please dial 0 to page the warehouse processor special education educational assistant. Care Navigator Signature: Chaplain Lula To contact the [facility] Care Department: Please call [phone] or Page the On-Call Care Navigator at pager [phone] Thank you for the opportunity to be of service. This is an electronically created document. IF PRINTED, PLEASE DO NOT REMOVE FROM THE CHART OR MODIFY PRINTED COPY. CASE MANAGEM Observed: 12/21/2017 Status: COMPLETED Source: ROUND TOP 2:42 PM [facility] REPOSITORY HNO ID: [id number] Author: Ayanna Petersen (Rn) ELENA Garcia Service: Case Management Author Type: Registered Nurse Type: Care Mgt Progress Note Filed: 12/21/2017 2:44 PM Note Text: CARE MANAGEMENT PROGRESS NOTE SERVICE DATE: 12/21/2017 SERVICE TIME: 2:43 PM LOS: 2 days EMR reviewed. New 3.5L n/c with baseline 3L. [facility] Accepted, NEED F2F. From Home Alone; her whcjnuml-fj-bkn lives in the unit above her ; dpseajyj-ym-qmu to transport. SIGNATURE: Ayanna Garcia RN PATIENT NAME: Rosa Beltran DATE: December 21, 2017 TIME: 2:43 PM PAGER/CONTACT #:[phone] PT ED Observed: 12/21/2017 Status: COMPLETED Source: [place]OUND [place] 1:08 PM [facility] REPOSITORY HNO ID: [id number] Author: Alisa Beltre (Pharmacist) Service: Pharmacy Author Type: Pharmacist Type: Patient Education Filed: 12/21/2017 3:14 PM Note Text: Heart Failure Education Note Patient Name:.Rosa Beltran Service Date: 12/21/2017 Service Time: 1:09 [...] RECOMMENDATIONS (IF ANY): n/a SIGNATURE: Norma Moore (Reimbursement Auditor) Preceptor Addendum: This case has been reviewed and discussed with the pharmacy teacher. I agree with the assessment/plan described by the student. Changes and additions to the details in the note are indicated by italics and . Alisa Beltre, Pharmacist NURSING PROG Observed: 12/21/2017 Status: COMPLETED Source: [facility] 12:34 PM CLINIC OTHER CAMPUS REPOSITORY [facility] ID: [id number] Author: Anat (Rn) ELENA Cheung Service: (none) Author Type: Registered Nurse Type: Nursing Progress Note Filed: 12/21/2017 7:52 PM Note Text: Nursing Progress Note Patient Name: Rosa Beltran Patient [id number] Daily Note:1145: assisted pt back to bed from [facility]. O2 intact at 3L/NC. denies pain at [...] ALLIED HEALTH Observed: 12/21/2017 Status: COMPLETED Source: [place] 11:38 AM [facility] OTHER CAMPUS REPOSITORY HNO ID: [id number] Author: Maile Bray Service: (none) Author Type: (none) Type: Allied Health Filed: 12/21/2017 11:42 AM Note Text: HEALING SERVICES THERAPY NOTE SERVICE DATE: 12/21/2017 The order placed is really for grief support and will be assessed first by our Care Navigator for grief counseling - I have placed an order for spiritual care. SIGNATURE: Maile Bray PATIENT NAME: Rosa Beltran DATE: December 21, 2017 TIME: 11:38 AM PAGER/CONTACT #: [phone] PROTIME Collected: 12/21/2017 Status: F Source: [place] 4:55 AM [facility] REPOSITORY TYPE CODE TESTS RESULT OUT OF RANGE REFERENCE UNITS LAB PSEC 9.7-13.0 sec High PT Sec 28.8 LAB INR 0.9-1.3 High PT INR 2.9 Result Comment: Vitamin K Antagonist (VKA) Therapeutic Range: INR 2 to 3 (Target INR of 2.5) Note: For patients treated with VKA drugs, such as warfarin, the [place] [employer] 2012 Guideline recommends [...] GH, et al. Chest 2012, 141:7S-47S Genevieve RA et al. [facility] 2017, 70: 252-289 Performed By: #### PT, CMP #### [facility] [address] [place] [address] COMP METABOLIC PANEL Collected: 12/21/2017 Status: F Source: [facility] [place] 4:55 AM [facility] OTHER CAMPUS REPOSITORY TYPE CODE TESTS RESULT [...] mg/dL Glucose High 100 Result Comment: The [place] [employer] (ADA) provides guidance for cutoff [...] Standards of Medical Care in Diabetes 2016, [place] [employer]. Diabetes Care. 2016.39(Suppl 1). LAB [...] GFR. Performed By: #### PT, CMP #### [facility] [address] [place] [address] CBC Collected: 12/21/2017 Status: F Source: [facility] [place] 4:55 AM [facility] REPOSITORY TYPE CODE TESTS RESULT OUT [...] 11.6 Performed By: #### CBC, MG1 #### [facility] [address] [place] [address] MAGNESIUM Collected: 12/21/2017 Status: F Source: ROUND TOP 4:55 AM [facility] REPOSITORY TYPE CODE TESTS RESULT OUT OF REFERENCE UNITS RANGE LAB MG 1.7-2.3 mg/dL Magnesium 1.7 Performed By: #### CBC, MG1 #### [facility] [address] [place] [address] ALLIED HEALTH Observed: 12/20/2017 Status: COMPLETED Source: ROUND TOP 5:00 PM [facility] REPOSITORY HNO ID: [id number] Author: Svetlana (Rn) Carlos, RN Service: Ostomy Author Type: Registered [...] and lymphedema. Patient is followed at the [facility] for management. [facility] changes [facility] dressings 2-3 times a [...] resume wound care as provided thru the [facility]. PAtient acknowledges instructions. Maintain [...] necessary. PROGRESS Observed: 12/20/2017 Status: COMPLETED Source: ROUND TOP 4:29 PM CLINIC OTHER CAMPUS REPOSITORY O ID: [id number] Author: Kenya Stevenson) Mike Service: Hospital Medicine Author Type: Physician Type: Progress Notes Filed: 12/21/2017 12:39 AM Note Text: HOSPITAL MEDICINE PROGRESS NOTE Name: Rosa Beltran SERVICE DATE: 12/20/2017 SERVICE TIME: 4:29 PM LOCATION / ROOM: [id number] Hospital Medicine/Primary Attending: Kenya Wilson MD NIGHT COVERAGE BETWEEN 5.30P-7.30A Page [phone] ASSESSMENT AND PLAN Active Hospital Problems Diagnosis [...] (LOPRESSOR) 25 mg ORAL BID Kenya Stevenson) Mike 25 mg at 12/20/172037 warfarin 4 mg [...] tab(s) (ZAROXOLYN) 2.5 mg ORAL DAILY Justin Dangelo (Pa) 2.5 mg at 12/20/17 1012 levothyroxine 100 mcg tab(s) (SYNTHROID) 100 mcg ORAL DAILY Justin Dangelo (Pa) 100 mcg at 12/20/17 0612 furosemide 40 mg injection (LASIX) 40 mg INTRAVENOUS q 12 H 6a/6p Justin Avendano) Antolin 40 mg at 12/20/17 1854 0.9% NaCl 3-5 mL 3-5 mL INTRAVENOUS q 12 H Justin Dangelo (Pa) 5 mL at 12/20/172037 acetaminophen 650 mg tab(s) (TYLENOL) 650 mg ORAL q 6 H PRN Justin Dangelo (Pa) 650 mg at 12/20/172037 OBJECTIVE PHYSICAL EXAM: [...] Patient is already anti-coagulated. Disposition: Home with C vs Extended Care Facility Plan of care discussed with: Patient SIGNATURE: Kenya Wilson MD DATE: December 21, 2017 TIME: 12:29 AM NURSING PROG Observed: 12/20/2017 Status: COMPLETED Source: SALAZAR 4:00 PM CLINIC OTHER CAMPUS REPOSITORY O ID: [id number] Author: Jacqueline (Rn) ELENA Martin Service: Nursing Author Type: Registered Nurse Type: Nursing Progress Note Filed: 12/20/2017 7:12 PM Note Text: Nursing Progress Note Patient Name: Rosa Beltran Patient Location: [id number] Daily Note: Phuc Gonzalez RN in to change dressings. Assistance provided. Venipuncture x 1 with #22 in rt FA that flushes well and has good blood return. This note was completed by: Jacqueline Martin RN NURSING PROG Observed: 12/20/2017 Status: COMPLETED Source: ROUND TOP 1:20 PM [facility] REPOSITORY HNO ID: [id number] Author: Tina (Rn) ELENA Cancino Service: Nursing Author Type: Registered Nurse Type: Nursing Progress Note Filed: 12/20/2017 1:32 PM Note Text: Nursing Progress Note Patient Name: Rosa Beltran Patient Location: [place] [id number] Daily Note: Noted heart rate afib/flutter in the mid 40's on tele. Dr. Wilson on unit and updated. Pt takes metoprolol 50 mg Q12H, will review when he rounds on pt This note was completed by: Tina Cancino RN PT ED Observed: 12/20/2017 Status: COMPLETED Source: ROUND TOP 1:12 PM [facility] REPOSITORY HNO ID: [id number] Author: Jolynn Lowe (Pharmacist) Service: Pharmacy Author [...] N/A Outpatient Follow-up: Primary Physician Norma Moore (Reimbursement Auditor) Preceptor Addendum: This case has been reviewed and discussed with the pharmacy teacher. I agree with the assessment/plan described by the student. Changes and additions to the details in the note are indicated by italics and . Jolynn Lowe, Pharmacist CASE MANAGEM Observed: 12/20/2017 Status: COMPLETED Source: ROUND TOP 12:23 PM [facility] REPOSITORY HNO ID: [id number] Author: Ayanna Petersen (Rn) ELENA Garcia Service: Case Management Author Type: Registered Nurse Type: Care Mgt Progress Note Filed: 12/20/2017 12:29 PM Note Text: CARE MANAGEMENT PROGRESS NOTE SERVICE DATE: 12/20/2017 SERVICE TIME: 12:23 PM LOS: 1 day EMR reviewed. Met with Rosa to review her dc plan. Current HHC closing . Chose 1- [facility] ( ref sent) 2- [facility]. NEED F2F. From Home Alone; her pvxfkytf-av-lda lives in the unit above her ; txispstj-xn-djl to transport. SIGNATURE: Ayanna Garcia RN PATIENT NAME: Rosa Beltran DATE: December 20, 2017 TIME: 12:23 PM PAGER/CONTACT #: [phone] PROTIME Collected: 12/20/2017 Status: F Source: ROUND TOP 10:07 AM [facility] OTHER [place] REPOSITORY TYPE CODE TESTS RESULT OUT OF RANGE REFERENCE UNITS LAB PSEC 9.7-13.0 sec High PT Sec 23.7 LAB INR 0.9-1.3 High PT INR 2.4 Result Comment: Vitamin K Antagonist (VKA) Therapeutic Range: INR 2 to 3 (Target INR of 2.5) Note: For patients treated with VKA drugs, such as warfarin, the [place] [employer] 2012 Guideline recommends [...] Chest 2012, 141:7S-47S Genevieve RA, et al. [facility] 2017, 70: 252-289 Performed By: #### PT #### [facility] [address] [place] [address] CBC Collected: 12/20/2017 Status: F Source: ROUND TOP 8:50 AM [facility] OTHER [place] REPOSITORY TYPE CODE TESTS RESULT OUT OF [...] Performed By: #### CBC, BMP, MG1 #### [facility] [address] [place] [address] BASIC METABOLIC PANL Collected: 12/20/2017 Status: F Source: ROUND TOP 8:50 AM [facility] REPOSITORY TYPE CODE TESTS RESULT OUT OF REFERENCE UNITS RANGE LAB GLU 74-99 mg/dL Glucose 86 Result Comment: The [place] [employer] Association (ADA) provides guidance for cutoff [...] Standards of Medical Care in Diabetes 2016, [place] [employer]. Diabetes Care. 2016.39(Suppl 1). LAB [...] Performed By: #### CBC, BMP, MG1 #### [facility] [address] [place] [address] MAGNESIUM Collected: 12/20/2017 Status: F Source: ROUND TOP 8:50 AM CLINIC OTHER CAMPUS REPOSITORY TYPE CODE TESTS RESULT OUT OF REFERENCE UNITS RANGE LAB MG 1.7-2.3 mg/dL Magnesium 1.7 Performed By: #### CBC, BMP, MG1 #### [facility] [address] [place] [address] TROPONIN T Collected: 12/20/2017 Status: F Source: ROUND TOP 3:30 AM [facility] OTHER [place] REPOSITORY TYPE CODE TESTS RESULT OUT OF REFERENCE UNITS RANGE LAB TROPT 0.000-0.029 ng/mL Troponin T <0.010 Performed By: #### YOLANDE #### [facility] [address] [place] [address] URINALYSIS Collected: 12/20/2017 Status: F Source: ROUND TOP 3:14 AM CLINIC OTHER CAMPUS REPOSITORY TYPE CODE TESTS RESULT OUT OF RANGE REFERENCE UNITS LAB UCOL Yellow Color Abnormal Straw Alert LAB [facility] Clear Clarity Clear LAB UGLUC Negative mg/dL Glucose, Urine Negative LAB UBIL Negative Bilirubin, Urine Negative LAB UKET Negative Ketones, Urine Negative LAB USPG 1.001-1.029 Specific [place], Ur 1.010 LAB UHGB Negative Abnormal Hemoglobin/Blood, Moderate Alert Ur LAB UPH 5.0-8.0 pH 6.0 LAB UPROT Negative mg/dL Protein, Urine Negative LAB UUROB 0.2-1.0 Urobilinogen 0.2 LAB UNITR Negative Nitrites Negative LAB ULKEST Negative Leukest Negative Performed By: #### UA, UAMIC #### [facility] [address] [facility] [phone] URINE MICROSCOPIC (FOR Collected: 12/20/2017 Status: F Source: ROUND TOP LAB USE ONLY) 3:14 AM CLINIC OTHER CAMPUS REPOSITORY TYPE CODE TESTS RESULT OUT OF REFERENCE UNITS RANGE LAB UWBC 0-5 /HPF WBC 0-5 LAB URBC 0-3 /HPF RBC 0-3 LAB UCAST 0 /LPF Cast SEE COMMENT Result Comment: 0 Performed By: #### UA, UAMIC #### [facility] [address] [place] [phone] TROPONIN T Collected: 12/19/2017 Status: F Source: ROUND TOP 8:44 PM CLINIC OTHER CAMPUS REPOSITORY TYPE CODE TESTS RESULT OUT OF REFERENCE UNITS RANGE LAB TROPT 0.000-0.029 ng/mL Troponin T <0.010 Performed By: #### YOLANDE #### [facility] [address] [facility] [phone] ED PROV NOTE Observed: 12/19/2017 Status: COMPLETED Source: ROUND TOP 8:00 PM CLINIC OTHER CAMPUS REPOSITORY HNO ID: [id number] Author: Tia Pardo DO Service: (none) Author [...] L nasal cannula. History provided by: Patient translator/interpreter used: No PAST MEDICAL HISTORY Diagnosis Date [...] 10/08/2016 - COPD (chronic obstructive pulmonary disease) ([facility]) - Depressive disorder 12/29/2016 - Disruption of surgical wound 09/2015 Right tibia - Dorsalgia 12/29/2016 - Dyslipidemia - Gastric bypass status for obesity 12/29/2016 - Gastroesophageal reflux disease without esophagitis 10/08/2016 - HTN (hypertension) - Muscular weakness 12/29/2016 - Primary osteoarthritis involving multiple joints 12/29/2016 - Pure hypercholesterolemia - Rheumatoid arthritis ([facility]) 2007 - Sleep apnea - Stented coronary artery 12/29/2016 PAST SURGICAL HISTORY Procedure Laterality Date - CC CORONARY STENT 11/20/2012 KIMMY LAD - CC CORONARY STENT 12/20/2014 KIMMY, Cfx - SECTION [facility] - GASTRIC BYPASS HX 1986 - HERNIA REPAIR HX 1987; 1989 - PAST SURGICAL HISTORY OF Right 09/2015 right tibia fracture ORIF - PAST SURGICAL HISTORY OF Right 01/20/2016 Removal of hardware, right tibia - TOTAL KNEE REPLACEMENT Right 2003 [facility] Gen. - TOTAL KNEE REPLACEMENT Left 2004 [facility] Gen. No family history on [...] Notable for the following: YOLANDE High Sensitivity 27 (*) <12 ng/L All [...] of the patient and have reviewed the PA/GRE INSTRUCTOR note. My [place] findings include: History: The [...] ED NOTE Observed: 12/19/2017 Status: COMPLETED Source: ROUND TOP 7:39 PM CLINIC OTHER CAMPUS REPOSITORY HNO ID: [id number] Author: Madiha Joyce RN Service: (none) Author Type: Registered Nurse Type: ED Notes Filed: 12/19/2017 7:40 PM Note Text: Report given to Echo BARBOSA [address] [place] [address]. ED NOTE Observed: 12/19/2017 Status: COMPLETED Source: ROUND TOP 5:55 PM CLINIC OTHER CAMPUS REPOSITORY HNO ID: [id number] Author: Madiha Hammer) ELENA Joyce Service: (none) Author Type: Registered Nurse Type: ED Notes Filed: 12/19/2017 5:57 PM Note Text: Pt ambulated with this RN and portable oxygen to bathroom. Pt very short of breath by time she made it back to bed. Oxygen stayed stable, 94% 4L NC. 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 Vevvhhij-xq-yer to transport at d/c. Pt reported she was recently informed that the [facility] agency is closing and she is looking for a [facility] agency. Pt stated that the wound [...] Agency Choices;Home Care Order Health Insurance: Medicare, [place] Living Arrangement: Home Lives With: Alone; however, pt noted that her osevhtny-hr-jjq lives in the unit above her Financial [...] would like to continue services at d/c; uzmlivpi-uy-gif to transport Does the patient have an [...] honored in another state while traveling (particularly [place], where her daughter lives) and SW found information on the internet stating that [place] honors AD paperwork completed in another state; pt advised this may not be the most recent information and encouraged pt to complete AD documents in [place] PRIOR TO ADMISSION: Baseline Mental Status: Alert AND Oriented, Person, Place , Time and Situation Functional Status: Independent Does Patient Currently Receive Any Community Services or Home Care? Home Health Care Agency: [facility]; ; Active. Equipment Prior to Admission: Oxygen 3 liters per minute Walker Wound Care supplies Provider [facility]: Health Issues Impacting Discharge Plan: HTN, COPD, [...] No Has the Patient Been in a Care Home Facility in the Past 30 days? No FREEDOM OF CHOICE EXPLAINED: Yes SW explained that pt is able to choose [facility] agency HANDOFF COMMUNICATION: To be completed upon d/c SIGNATURE: NAILA AMEZCUA PATIENT NAME: Rosa Beltran DATE: December 19, 2017 TIME: 5:50 PM PAGER/CONTACT #: [phone] HISTORY PHYSICAL Observed: 12/19/2017 Status: COMPLETED Source: ROUND TOP 5:37 PM CLINIC OTHER CAMPUS REPOSITORY O ID: [id number] Author: Justin Dangelo (Pa) Service: General Internal Medicine Author Type: Physician Risk Investigator Type: HANDP Filed: 12/19/2017 8:36 PM Note [...] Physician: Mani Newman MD NIGHT COVERAGE Page [phone] for any questions between 5.30p-7.30a ASSESSMENT AND [...] with hypoxia (HCC) 09/30/2017 - Atrial fibrillation ([facility]) - CAD (coronary artery disease) Dr. Brenda [...] 10/08/2016 - COPD (chronic obstructive pulmonary disease) ([facility]) - Depressive disorder 12/29/2016 - Disruption of surgical wound 09/2015 Right tibia - Dorsalgia 12/29/2016 - Dyslipidemia - Gastric bypass status for obesity 12/29/2016 - Gastroesophageal reflux disease without esophagitis 10/08/2016 - HTN (hypertension) - Muscular weakness 12/29/2016 - Primary osteoarthritis involving multiple joints 12/29/2016 - Pure hypercholesterolemia - Rheumatoid arthritis ([facility]) 2007 - Sleep apnea - Stented coronary [...] - TOTAL KNEE REPLACEMENT Right 2003 [facility] Gen. - TOTAL KNEE REPLACEMENT Left 2004 [facility] Gen. FAMILY HISTORY: No family [...] OF CARE Observed: 12/19/2017 Status: COMPLETED Source: ROUND TOP 2:33 PM CLINIC OTHER CAMPUS REPOSITORY HNO ID: [id number] Author: Channing Son (Pharmacist) Service: Pharmacy Author Type: Pharmacist Type: Plan of Care Filed: 12/19/2017 2:35 PM Note Text: MEDICATION HISTORY Patient Name:Rolo Beltran : 1935 Source of history:Patient: Reliability of source: Appears reliable, clearly identified: Medication name, Medication dose, Medication route, Medication frequency and Timing of last dose and Pharmacy records: [facility] Medication Nonadherence Identified: No barriers noted The [...] Allergies: ALLERGIES No Known Allergies Preferred Pharmacy: [facility] Current DRUG SAFETY SPECIALIST Medications: Prior to Admission medications as of 12/19/17 2233 Medication Sig Last Dose Taking ASCORBIC ACID [...] ED NOTE Observed: 12/19/2017 Status: COMPLETED Source: ROUND TOP 1:44 PM [facility] OTHER [place] REPOSITORY HNO ID: [id number] Author: Madiha Hammer) ELENA Joyce Service: (none) Author Type: Registered Nurse Type: ED Notes Filed: 12/19/2017 1:44 PM Note Text: Dr. Pardo rounds on pt at bedside to assess. ED NOTE Observed: 12/19/2017 Status: COMPLETED Source: ROUND TOP 1:41 PM [facility] REPOSITORY HNO ID: [id number] Author: Madiha Hammer) ELENA Joyce Service: (none) Author Type: Registered Nurse Type: ED Notes Filed: 12/19/2017 1:41 PM Note Text: Pt ambulated to and from bathroom with assistance of RN. Pt requesting snack and given ernesto crackers and diet willie marin. HIGH SENS TROPONIN T Collected: 12/19/2017 Status: F Source: ROUND TOP 1:19 PM [facility] OTHER [place] REPOSITORY TYPE CODE TESTS RESULT OUT OF [...] day MACE. Performed By: #### HSTNT #### [facility] [address] [facility] [phone] CBC AND DIFFERENTIAL Collected: 12/19/2017 Status: F Source: ROUND TOP 12:00 PM [facility] OTHER [place] REPOSITORY TYPE CODE TESTS RESULT OUT OF [...] k/uL Abs Lymph 1.85 LAB AMONO % Bowman% 6.6 LAB AAMONO <0.87 k/uL Abs Bowman 0.43 LAB AEOS % Eosin% 2.0 LAB AAEOS <0.46 k/uL Abs Eosin 0.13 LAB ABASO % Baso% 0.5 LAB AABASO <0.11 k/uL Abs Baso 0.03 Performed By: #### CBCDIF, PT, PTT, CMP, LIPA #### [facility] [address] [facility] [phone] PROTIME Collected: 12/19/2017 Status: F Source: ROUND TOP 12:00 PM CLINIC OTHER CAMPUS REPOSITORY TYPE CODE TESTS RESULT OUT OF RANGE REFERENCE UNITS LAB PSEC 9.7-13.0 sec High PT Sec 23.6 LAB INR 0.9-1.3 High PT INR 2.3 Result Comment: Vitamin K Antagonist (VKA) Therapeutic Range: INR 2 to 3 (Target INR of 2.5) Note: For patients treated with VKA drugs, such as warfarin, the [place] [employer] 2012 Guideline recommends [...] Chest 2012, 141:7S-47S Genevieve RA, et al. [facility] 2017, 70: 252-289 Performed By: #### CBCDIF, PT, PTT, CMP, LIPA #### [facility] [address] [facility] [phone] APTT Collected: 12/19/2017 Status: F Source: ROUND TOP 12:00 PM [facility] REPOSITORY TYPE CODE TESTS RESULT OUT [...] laboratory APTT reagent in use throughout the [facility]. Performed By: #### CBCDIF, PT, PTT, CMP, LIPA #### [facility] [address] [facility] [phone] COMP METABOLIC PANEL Collected: 12/19/2017 Status: F Source: ROUND TOP 12:00 [facility] REPOSITORY TYPE CODE TESTS RESULT [...] 74-99 mg/dL Glucose 98 Result Comment: The [place] [employer] (ADA) provides guidance for cutoff [...] Standards of Medical Care in Diabetes 2016, [place] [employer]. Diabetes Care. 2016.39(Suppl 1). LAB [...] #### CBCDIF, PT, PTT, CMP, LIPA #### [facility] [address] [place] [address] LIPASE Collected: 12/19/2017 Status: F Source: ROUND TOP 12:00 PM [facility] OTHER CAMPUS REPOSITORY TYPE CODE TESTS RESULT OUT OF REFERENCE UNITS RANGE LAB LIPA 16-61 U/L Lipase 22 Performed By: #### CBCDIF, PT, PTT, CMP, LIPA #### [facility] [address] [place] [address] NT PRO BNP Collected: 12/19/2017 Status: F Source: ROUND TOP 12:00 PM [facility] OTHER [place] REPOSITORY TYPE CODE TESTS RESULT OUT OF REFERENCE UNITS RANGE LAB PBNP <450 pg/mL High PRO B Natr 4066 Peptide Performed By: #### NTBNP #### [facility] [address] [facility] [phone] HIGH SENS TROPONIN T Collected: 12/19/2017 Status: F Source: ROUND TOP 12:00 PM [facility] OTHER [place] REPOSITORY TYPE CODE TESTS RESULT OUT OF [...] day MACE. Performed By: #### HSTNT #### [facility] [address] [place] [address] CK, TOTAL AND CKMB Collected: 12/19/2017 Status: F Source: ROUND TOP 12:00 PM [facility] REPOSITORY TYPE CODE TESTS RESULT OUT OF REFERENCE UNITS RANGE LAB CK 42-196 U/L Low 41 CK LAB MB <4.3 ng/mL MB 2.4 LAB CKMBRI 0.0-4.0 % CK CK MB MB % not % reported with CK <100 U/L. Performed By: #### CKCKMB #### [facility] [address] [place] [address] ED NOTE Observed: 12/19/2017 Status: COMPLETED Source: ROUND TOP 11:58 AM [facility] OTHER [place] REPOSITORY HNO ID: [id number] Author: Madiha ParksRn) ELENA Joyce Service: (none) Author Type: Registered Nurse Type: ED Notes Filed: 12/19/2017 11:58 AM Note Text: Medic at bedside to obtain PIV and lab work. XR CHEST 1V FRONTAL Observed: 12/19/2017 Status: F Source: [facility] 11:41 AM [facility] OTHER CAMPUS REPOSITORY * * *Final Report* [...] rib. Gaseous prominence of the gastric bubble. Automatic Grinder Operator: PSCB Transcribe Date/Time: Dec 19 2017 11:46A Dictated by : DORENE CARBONE MD This examination was interpreted and the report reviewed and electronically signed by: DORENE CARBONE MD on Dec 19 2017 11:49AM EST [id number] PROGRESS Observed: 12/19/2017 Status: COMPLETED Source: ROUND TOP 10:30 AM CLINIC OTHER CAMPUS REPOSITORY HNO ID: [id number] Author: Luis Lyles (Jacker Feeder) LOI Simons Service: (none) Author Type: Nurse Practitioner Type: Progress Notes Filed: 01/03/2018 10:52 AM Note Text: DATE OF VISIT: 12/19/2017 REASON FOR VISIT: Non-healing lower extremity wound. HISTORY OF PRESENT ILLNESS: Rosa Beltran is a 81 year old female who presents to the [facility] for further [...] to the ER for further evaluation. Tiffanie BRABOSA wheeled patient to the ER. INTERVAL HISTORY: [...] followed by Dr. Jaskaran Chance at the [facility]. It was felt that her home support system was inadequate and that she may not have the resources in her home environment to appropriately care for her needs. In this regard, a social work lecturer consultation had been recommended on several occassions, but patient apparently insisted on remaining in her home environment despite that there was thought that is may be less than optimal. The patient is here at the [facility] for a second opinion [...] with hypoxia (HCC) 09/30/2017 - Atrial fibrillation ([facility]) - CAD (coronary artery disease) Dr. Brenda [...] 10/08/2016 - COPD (chronic obstructive pulmonary disease) ([facility]) - Depressive disorder 12/29/2016 - Disruption of surgical wound 09/2015 Right tibia - Dorsalgia 12/29/2016 - Dyslipidemia - Gastric bypass status for obesity 12/29/2016 - Gastroesophageal reflux disease without esophagitis 10/08/2016 - HTN (hypertension) - Muscular weakness 12/29/2016 - Primary osteoarthritis involving multiple joints 12/29/2016 - Pure hypercholesterolemia - Rheumatoid arthritis ([facility]) 2007 - Sleep apnea - Stented coronary [...] - TOTAL KNEE REPLACEMENT Right 2003 [facility] Gen. - TOTAL KNEE REPLACEMENT Left 2004 [facility] Gen. MEDICATIONS ergocalciferol, vitamin D2, [...] Rubor of Dependency: Negative (Y) Positive (N) [place] Examination: Comments: Measurements: Right Calf: 36.5 cm Right Ankle: 29 cm Left Calf: 37.5 cm Left Ankle: 24.2 cm Neuro: Alert AND oriented x3, PROCESS IMPROVEMENT ANALYST II-XII grossly intact, reflexes 2+ and symmetric, [...] No acute fracture or bony destruction. ? Automatic Grinder Operator: DWIGHT ? Transcribe Date/Time: Oct 14 2017 [...] No acute fracture or bony destruction. ? Automatic Grinder Operator: DWIGHT ? Transcribe Date/Time: Oct 14 2017 [...] -- Week 5 Wound Bed (Post-debridement): 100% [place] % of Healthy tissue: Undermining: No Tunneling: No Tendon/bone exposed: NO Wound Edge/Margins: Well-defined wound edges and Edge attached to base Periwound Tissue: [place], dry and intact, No fluctuance, induration or [...] worsening symptoms. Luis Simons CNP Charge Capture: [id number] CNOV Observed: 12/19/2017 Status: COMPLETED Source: ROUND TOP 10:30 AM [facility] OTHER CAMPUS REPOSITORY Office Visit (PLWDMR) ROSA BELTRAN ([id number]) 1935 F Date Time Provider Department 12/19/17 10:30 AM LUIS SIMONS, (LOI) PLWDMR During your visit today, we recorded the following information about you: Temperature Pulse Respiration Blood pressure 97.6 degrees 65/minute 16/minute 141/74 Luis Simons CNP, LOI 01/03/2018 10:52 AM Addendum DATE OF VISIT: 12/19/2017 REASON FOR VISIT: Non-healing lower extremity wound. HISTORY OF PRESENT ILLNESS: Rosa Beltran is a 81 year old female who presents to the [facility] for further [...] followed by Dr. Jaskaran Chance at the [facility]. It was felt that her home support system was inadequate and that she may not have the resources in her home environment to appropriately care for her needs. In this regard, a social work lecturer consultation had been recommended on several occassions, but patient apparently insisted on remaining in her home environment despite that there was thought that is may be less than optimal. The patient is here at the [facility] for a second opinion [...] with hypoxia (HCC) 09/30/2017 - Atrial fibrillation ([facility]) - CAD (coronary artery disease) Dr. Brenda [...] 10/08/2016 - COPD (chronic obstructive pulmonary disease) ([facility]) - Depressive disorder 12/29/2016 - Disruption of [...] Cfx - SECTION HX - COLONOSCOPY 06/10/2017 [facility] [place] [facility], Nonspecific cecal ulcer - GASTRIC BYPASS HX 1986 - HERNIA REPAIR HX 1987; 1989 - PAST SURGICAL HISTORY OF Right 09/2015 right tibia fracture ORIF - PAST SURGICAL HISTORY OF Right 01/20/2016 Removal of hardware, right tibia - TOTAL KNEE REPLACEMENT Right 2003 [facility] Gen. - TOTAL KNEE REPLACEMENT Left 2004 [facility] Gen. MEDICATIONS ergocalciferol, vitamin D2, [...] Rubor of Dependency: Negative (Y) Positive (N) [place] Examination: Comments: Measurements: Right Calf: 36.5 cm Right Ankle: 29 cm Left Calf: 37.5 cm Left Ankle: 24.2 cm Neuro: Alert ANDamp; oriented x3, PROCESS IMPROVEMENT ANALYST II-XII grossly intact, reflexes 2+ and symmetric, [...] No acute fracture or bony destruction. ? Automatic Grinder Operator: DWIGHT ? Transcribe Date/Time: Oct 14 2017 [...] No acute fracture or bony destruction. ? Automatic Grinder Operator: DWIGHT ? Transcribe Date/Time: Oct 14 2017 [...] -- Week 5 Wound Bed (Post-debridement): 100% [place] % of Healthy tissue: Undermining: No Tunneling: No Tendon/bone exposed: NO Wound Edge/Margins: Well-defined wound edges and Edge attached to base Periwound Tissue: [place], dry and intact, No fluctuance, induration or [...] worsening symptoms. Luis Simons CNP Charge Capture: [id number] Tracy Alas MA, MA 12/19/2017 11:02 AM Signed Patient taken over to E.R for low SpO2. Patient felt more short of breath than usual. Nurse to nurse report given by ML to Echo Yeager RN. Referring Provider: MANI NEWMAN [[id number]] Allergies As of Date: 12/19/2017 (No Known [...] heart mag*INVALID FOR* Visit Notes: >> Tracy (Nadir Alas MA Mon Dec 19, 2017 11:00 AM Status: Signed Patient taken over to E.R for low SpO2. Patient felt more short of breath than usual. Nurse to nurse report given by ML to Echo Yeager RN. Encounter Status:Closed by LUIS SIMONS on 12/26/17 PROTIME Collected: 12/12/2017 Status: F Source: ROUND TOP 11:00 AM CLINIC MAIN CAMPUS REPOSITORY TYPE CODE TESTS RESULT OUT OF RANGE REFERENCE UNITS LAB PSEC 9.7-13.0 sec High PT Sec 27.7 LAB INR 0.9-1.3 High PT INR 2.9 Result Comment: Vitamin K Antagonist (VKA) Therapeutic Range: INR 2 to 3 (Target INR of 2.5) Note: For patients treated with VKA drugs, such as warfarin, the [place] [employer] 2012 Guideline recommends [...] Chest 2012, 141:7S-47S Genevieve ESTRADA et al. [facility] 2017, 70: 252-289 Performed By: #### PT #### [facility] [address], [place] [address] BASIC METABOLIC PANL Collected: 12/12/2017 Status: F Source: ROUND TOP 11:00 AM [facility] REPOSITORY TYPE CODE TESTS RESULT OUT OF REFERENCE UNITS RANGE LAB GLU 74-99 mg/dL High Glucose 102 Result Comment: The [place] [employer] Association (ADA) provides guidance for cutoff [...] Standards of Medical Care in Diabetes 2016, [place] [employer]. Diabetes Care. 2016.39(Suppl 1). LAB [...] actual GFR. Performed By: #### BMP #### [facility] [address] [place], [place] [address] PROGRESS Observed: 12/12/2017 Status: COMPLETED Source: ROUND TOP 10:32 AM [facility] MAIN CAMPUS REPOSITORY HNO ID: [id number] Author: Ty Beckman Service: (none) Author Type: Physician Type: Progress Notes Filed: 12/12/2017 10:34 AM Note Text: Subjective: Patient presents to clinic c/o painful toenails. They state that the nails are especially painful with shoe gear and pressure. Patient states that nails 1-5 b/l are painful. Patient has b/l legs wrapped in profore. Has an appointment later in day at wound clinic in [place]. No other pedal complaints at this time. [...] DPM PROGRESS Observed: 12/12/2017 Status: COMPLETED Source: ROUND TOP 10:10 AM [facility] REPOSITORY HNO ID: [id number] Author: Sharlene Billingsley Ma Service: (none) Author Type: (none) Type: Progress Notes Filed: 12/12/2017 10:34 AM Note Text: Pt has layer compression on BLE. BLE being managed at [facility]. Sharlene Billingsley Ma PROGRESS Observed: 12/05/2017 Status: COMPLETED Source: ROUND TOP 11:15 AM [facility] REPOSITORY HNO ID: [id number] Author: Lili Mcnair Service: (none) Author Type: Physician Type: Progress Notes Filed: 12/12/2017 8:00 AM Note Text: VASCULAR SURGERY INITIAL CONSULT SERVICE DATE: 12/05/2017 SERVICE TIME: 11:16 AM PRIMARY CARE PHYSICIAN: Mani Newman MD REFERRING PROVIDER: Luis Simons CNP [address] [place] [address] Consult requested for an opinion regarding the [...] leg, which is being treated at the [facility]. She reports past history of [...] 10/08/2016 - COPD (chronic obstructive pulmonary disease) ([facility]) - Depressive disorder 12/29/2016 - Disruption of surgical wound 09/2015 Right tibia - Dorsalgia 12/29/2016 - Dyslipidemia - Gastric bypass status for obesity 12/29/2016 - Gastroesophageal reflux disease without esophagitis 10/08/2016 - HTN (hypertension) - Muscular weakness 12/29/2016 - Primary osteoarthritis involving multiple joints 12/29/2016 - Pure hypercholesterolemia - Rheumatoid arthritis ([facility]) 2007 - Sleep apnea - Stented coronary [...] - TOTAL KNEE REPLACEMENT Right 2003 [facility] Gen. - TOTAL KNEE REPLACEMENT Left 2004 [facility] Gen. No family history on file. 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 In [facility] for one year, and [facility] before that. Discharged home 2015. Lives alone [...] sclerotherapy Will follow with [facility] and the [place] [facility] SIGNATURE: Lili Mcnair DO PATIENT NAME: Rosa Beltran DATE: December 05, 2017 TIME: 11:15 AM PROGRESS Observed: 12/03/2017 Status: COMPLETED Source: ROUND TOP 8:24 AM [facility] MAIN [place] REPOSITORY O ID: [id number] Author: Mani Newman Service: (none) Author Type: Physician Type: Progress Notes Filed: 12/03/2017 8:43 AM Note Text: This note was created using NoteWriter. Subjective Patient presents with: Recheck Rosa was [...] FRONTAL/LAT 2. Chronic respiratory failure with hypoxia ([facility]) - ICD9: 518.83, 799.02, ICD10: J96.11 On O2 supplement. 3. Chronic atrial fibrillation (HCC) - ICD9: 427.31, ICD10: I48.2 Rate controlled. Anticoagulated. 4. Essential hypertension - ICD9: 401.9, ICD10: I10 - good control 5. Ulcers of both lower extremities, unspecified ulcer stage ([facility]) - ICD9: 707.10, ICD10: L97.919, L97.929 Per Wound Clinic. Mani Newman MD XR CHEST 2V FRONTAL/LAT Observed: 12/02/2017 Status: F Source: ROUND TOP 1:13 PM [facility] REPOSITORY * * *Final Report* * [...] lung zones, left more so than right. Automatic Grinder Operator: PSCB Transcribe Date/Time: Dec 02 2017 4:32P Dictated by : JIGNESH DAVIS MD This examination was interpreted and the report reviewed and electronically signed by: JIGNESH DAVIS MD on Dec 02 2017 4:34PM EST [id number] PROGRESS Observed: 12/02/2017 Status: COMPLETED Source: ROUND TOP 12:48 PM [facility] REPOSITORY HNO ID: [id number] Author: Crissy Archer Service: (none) Author Type: [...] PM OBSOLETE Observed: 11/29/2017 Status: COMPLETED Source: ROUND TOP 12:00 AM [facility] REPOSITORY Refill (INTMWS) ROSA BELTRAN ([id number]) 1935 F Date Time Provider Department 11/29/17 [...] Allergies) Date Reviewed: 11/25/2017 Reviewed by: Peter (Tory) TORY Jason - Fully Assessed Reason for Visit: Refill [...] 11/30/17 PROTIME Collected: 11/25/2017 Status: F Source: ROUND TOP 12:27 PM CLINIC MAIN CAMPUS REPOSITORY TYPE CODE TESTS RESULT OUT OF RANGE REFERENCE UNITS LAB PSEC 9.7-13.0 sec High PT Sec 41.9 LAB INR 0.9-1.3 High PT INR 4.4 Result Comment: Vitamin K Antagonist (VKA) Therapeutic Range: INR 2 to 3 (Target INR of 2.5) Note: For patients treated with VKA drugs, such as warfarin, the [place] [employer] 2012 Guideline recommends [...] Chest 2012, 141:7S-47S Genevieve ESTRADA et al. [facility] 2017, 70: 252-289 Performed By: #### PT #### [facility] [address] [place], [place] [address] PROGRESS Observed: 11/25/2017 Status: COMPLETED Source: ROUND TOP 11:30 AM [facility] OTHER CAMPUS REPOSITORY O ID: [id number] Author: Luis Lyles (Jacker Feeder) LOI Simons Service: (none) Author Type: Nurse Practitioner Type: Progress Notes Filed: 11/29/2017 2:26 PM Note Text: DATE OF VISIT: 11/25/2017 REASON FOR VISIT: Non-healing lower extremity wound. HISTORY OF PRESENT ILLNESS: Rosa Beltran is a 81 year old female who presents to the [facility] for further [...] followed by Dr. Jaskaran Chance at the [facility]. It was felt that her home support system was inadequate and that she may not have the resources in her home environment to appropriately care for her needs. In this regard, a social work lecturer consultation had been recommended on several occassions, but patient apparently insisted on remaining in her home environment despite that there was thought that is may be less than optimal. The patient is here at the [facility] for a second opinion [...] with hypoxia (HCC) 09/30/2017 - Atrial fibrillation ([facility]) - CAD (coronary artery disease) Dr. Brenda [...] 10/08/2016 - COPD (chronic obstructive pulmonary disease) ([facility]) - Depressive disorder 12/29/2016 - Disruption of surgical wound 09/2015 Right tibia - Dorsalgia 12/29/2016 - Dyslipidemia - Gastric bypass status for obesity 12/29/2016 - Gastroesophageal reflux disease without esophagitis 10/08/2016 - HTN (hypertension) - Muscular weakness 12/29/2016 - Primary osteoarthritis involving multiple joints 12/29/2016 - Pure hypercholesterolemia - Rheumatoid arthritis ([facility]) 2007 - Sleep apnea - Stented coronary artery 12/29/2016 PAST SURGICAL HISTORY Procedure Laterality Date - CC CORONARY STENT 11/20/2012 KIMMY LAD - CC CORONARY STENT 12/20/2014 KIMMY, Cfx - SECTION HX - COLONOSCOPY 06/10/2017 [facility] [place] [facility], Nonspecific cecal ulcer - GASTRIC BYPASS HX 1987 - HERNIA REPAIR HX 1987; 1989 - PAST SURGICAL HISTORY OF Right 09/2015 right tibia fracture ORIF - PAST SURGICAL HISTORY OF Right 01/20/2016 Removal of hardware, right tibia - TOTAL KNEE REPLACEMENT Right 2003 [facility] Gen. - TOTAL KNEE REPLACEMENT Left 2004 [facility] Gen. MEDICATIONS ergocalciferol, vitamin D2, [...] Rubor of Dependency: Negative (Y) Positive (N) [place] Examination: Comments: Measurements: Right Calf: 36.5 cm Right Ankle: 29 cm Left Calf: 37.5 cm Left Ankle: 24.2 cm Neuro: Alert AND oriented x3, PROCESS IMPROVEMENT ANALYST II-XII grossly intact, reflexes 2+ and symmetric, [...] No acute fracture or bony destruction. ? Automatic Grinder Operator: DWIGHT ? Transcribe Date/Time: Oct 14 2017 [...] No acute fracture or bony destruction. ? Automatic Grinder Operator: DWIGHT ? Transcribe Date/Time: Oct 14 2017 [...] -- Week 5 Wound Bed (Post-debridement): 100% [place] % of Healthy tissue: Undermining: No Tunneling: No Tendon/bone exposed: NO Wound Edge/Margins: Well-defined wound edges and Edge attached to base Periwound Tissue: [place], dry and intact, No fluctuance, induration or [...] worsening symptoms. Luis Simons CNP Charge Capture: [id number], [id number] PROCEDURE Observed: 11/25/2017 Status: COMPLETED Source: ROUND TOP 11:30 AM CLINIC OTHER CAMPUS REPOSITORY O ID: [id number] Author: Luis Rodriguez) LOI Simons Service: (none) [...] sterile normal saline and dressings were applied. DAHLIA Observed: 11/25/2017 Status: COMPLETED Source: ROUND TOP 11:30 AM [facility] OTHER [place] REPOSITORY Office Visit (PLWDMR) ROSA BELTRAN ([id number]) 1935 F Date Time Provider Department 11/25/17 [...] year old female who presents to the [facility] for further [...] followed by Dr. Jaskaran Chance at the [facility]. It was felt that her home support system was inadequate and that she may not have the resources in her home environment to appropriately care for her needs. In this regard, a social work lecturer consultation had been recommended on several occassions, but patient apparently insisted on remaining in her home environment despite that there was thought that is may be less than optimal. The patient is here at the [facility] for a second opinion [...] hypothyroidism - Acute respiratory failure with hypoxia ([facility]) 09/30/2017 - Atrial fibrillation ([facility]) - CAD (coronary artery disease) Dr. Brenda [...] Cecal ulcer 06/10/2017 - Chronic atrial fibrillation ([facility]) 10/08/2016 - COPD (chronic obstructive pulmonary disease) ([facility]) - Depressive disorder 12/29/2016 - Disruption of surgical wound 09/2015 Right tibia - Dorsalgia 12/29/2016 - Dyslipidemia - Gastric bypass status for obesity 12/29/2016 - Gastroesophageal reflux disease without esophagitis 10/08/2016 - HTN (hypertension) - Muscular weakness 12/29/2016 - Primary osteoarthritis involving multiple joints 12/29/2016 - Pure hypercholesterolemia - Rheumatoid arthritis ([facility]) 2007 - Sleep apnea - Stented coronary [...] - TOTAL KNEE REPLACEMENT Right 2003 [facility] Gen. - TOTAL KNEE REPLACEMENT Left 2004 [facility] Gen. MEDICATIONS ergocalciferol, vitamin D2, [...] Rubor of Dependency: Negative (Y) Positive (N) [place] Examination: Comments: Measurements: Right Calf: 36.5 cm Right Ankle: 29 cm Left Calf: 37.5 cm Left Ankle: 24.2 cm Neuro: Alert ANDamp; oriented x3, PROCESS IMPROVEMENT ANALYST II-XII grossly intact, reflexes 2+ and symmetric, [...] No acute fracture or bony destruction. ? Automatic Grinder Operator: DWIGHT ? Transcribe Date/Time: Oct 14 2017 [...] No acute fracture or bony destruction. ? Automatic Grinder Operator: DWIGHT ? Transcribe Date/Time: Oct 14 2017 [...] -- Week 5 Wound Bed (Post-debridement): 100% [place] % of Healthy tissue: Undermining: No Tunneling: No Tendon/bone exposed: NO Wound Edge/Margins: Well-defined wound edges and Edge attached to base Periwound Tissue: [place], dry and intact, No fluctuance, induration or [...] worsening symptoms. Luis Simons CNP Charge Capture: [id number], [id number] Luis Simons CNP, TESTING COORDINATOR 11/29/2017 2:26 PM Signed A procedural pause [...] dressings were applied. Peter Jason MA, TORY 11/25/2017 11:54 AM Addendum Nursing Note See [...] [facility] as patient's request. [phone] EDUCATION: The patient/family was instructed how to [...] following changes to the Wound Center at [phone] or go to the Emergency Department: ? [...] to review vascular studies in her office 12/05 Begin using compression pumps - run with 40-50 mmhg of compression twice daily (Call company to have pumps set to proper compression) Please bring your creams to the wound center - every visit Luis Simons TESTING COORDINATOR/mjl Referring Provider: MANI NEWMAN [[id number]] Allergies As of Date: 11/25/2017 (No Known [...] following changes to the Wound Center at [phone] or go to the Emergency Department: ? [...] wound center - every visit Luis Simons TESTING COORDINATOR/mjl Visit Notes: >> Peter (Tory) TORY Jason [...] [facility] as patient's request. [phone] EDUCATION: The patient/family was instructed how to [...] Encounter Status:Closed by LUIS SIMONS on 11/29/17 ALLERGIES ALLERGIES DATE TYPE / CODE NAME / CODE REACTION SEVERITY SOURCE 06/05/2018 Drug No Known Unknown [facility] Allergy/416 Allergies/L61495 [facility] 179060(SNOM 0388(RXNORM) Repository ED CT) /[id number] NO KNOWN [facility] 6(SNOMED ALLERGIES [facility]) Repository Drug NO KNOWN [facility] Class/08634 ALLERGIES Other [place] 1003(SNOMED Repository CT) ENCOUNTERS ENCOUNTERS ADMIT/DISCHARGE ACCOUNT NUMBER ADMITTING ENCOUNTER LOCATION SOURCE CLASS 11/03/2018/ [id number] Yadi Doshi Inpatient [place] 019 [facility] lding:PCURo Repository om: [id number]: 1 11/03/2018 [id number] Yadi Doshi Ambulatory [facility] [place] :BMS.Pending sale to [facility] Repository 11/03/2018 [id number] Yadi Doshi [place] Ambulatory [facility] [place] :BMS.Pending sale to [facility] Repository 11/03/2018 [id number] Yadi Doshi [place]aina Ambulatory [facility] [place] :BMS.Pending sale to [facility] Repository 11/03/2018 [id number] Yadi Doshi Naina Ambulatory [facility] [place] :BMS.Pending sale to [facility] Repository 11/03/2018 [id number] Yadi Doshi Ambulatory [facility] [place] :BMS.Pending sale to [facility] Repository 11/03/2018 [id number] Ambulatory [facility] lding:OLS.A Repository VEB 11/01/2018 [id number] Ambulatory [facility] lding:MEDOU Repository TP 10/30/2018 [id number] [facility].A Repository VEB 10/30/2018 [id number] Ambulatory [facility] lding:OLS.A Repository VEB 10/23/2018 [id number] Ambulatory [facility] lding:OLS.A Repository VEB 10/16/2018 [id number] Ambulatory [facility] lding:OLS.A Repository VEB 10/10/2018 [id number] [facility].A Repository VEB 10/07/2018 [id number] Ambulatory [facility] lding:OLS.A Repository VEB 10/01/2018 [id number] [place], Ambulatory [facility] [place] :BMS.Pending sale to [facility] Repository 10/01/2018 [id number] [place], Ambulatory [facility] [place] Ghasem :BMS.[facility] Repository 10/01/2018 [id number] [place], Ambulatory [facility] [place] :BMS.Pending sale to [facility] Repository 10/01/2018 [id number] [place], Ambulatory [facility] [place] Ghasem :BMS.Pending sale to [facility] Repository 10/01/2018 [id number] [place], Ambulatory [facility] [place] :BMS.Pending sale to [facility] Repository 10/01/2018 [id number] [place], Ambulatory [facility] [place] Ghasem :BMS.Pending sale to [facility] Repository 10/01/2018/ [id number] [place], Inpatient [place] 018 Ghasem Encounter [facility] lding:PCURo Repository om: [id number]: 1 10/01/2018/ [id number] Ambulatory [facility] [place] 018 :[facility] Repository 09/26/2018 [id number] Ambulatory [facility] lding:OLS.A Repository VEB 09/12/2018 [id number] [facility] lding:OLS.A Repository VEB 08/29/2018 [id number] [facility] lding:OLS.A Repository VEB 08/15/2018 [id number] [facility] lding:OLS.A Repository VEB 08/14/2018 [id number] Ambulatory ABuilding:Farrah Meza [facility] Repository 07/31/2018/ [id number] Ambulatory ABuilding:Pinky Salomon DURoo: Health 0109Bed: A [facility] Repository 07/11/2018 [id number] Ambulatory ABuilding:Giselle Meza [facility] Repository 07/11/2018/ [id number] URIEL RUIZ, Inpatient LBuilding:Giselle Salomon [place]OWER Encounter TCHRoo: Health 4520Bed: A [facility] Repository 07/03/2018/ [id number] ANA DAVISON MD. Inpatient BBuilding:Tulio Salomon CARLA W Encounter SURRoom: Health 0231Bed: A [facility] Repository 06/27/2018/ [id number] Ambulatory [place] [facility]18 [facility] [place] Repository 06/27/2018/ [id number] Ambulatory [place] [facility]18 [facility] [place] Repository 06/27/2018/ [id number] Ambulatory [place] [facility]18 [facility] [place] Repository 06/22/2018/ [id number] Ambulatory [place] [facility]18 [facility] Other [place] Repository 06/05/2018/ [id number] [place] [facility]18 [facility] lding:ED Repository 06/04/2018 [id number] Ambulatory [facility] [place] :[facility] Repository 05/25/2018/ [id number] Kee Brody Chi Inpatient [place] 018 [facility] lding:TCURo Repository om: [id number]: 1 05/22/2018/ [id number] SUZIEAYATA, Inpatient [place]18 [place]OHAMED Encounter [facility] Other [place] Repository 05/22/2018/ [id number] Ambulatory [place] 018 [facility] Other [place] Repository 05/22/2018 [id number] [facility] Repository 05/19/2018/ [id number] Ambulatory [place] 018 [facility] Other [place] Repository 05/16/2018 [id number] [facility]OLS.A Repository 05/15/2018/ [id number] Ambulatory [place] 018 [facility] Other [place] Repository 05/11/2018 [id number] [facility] Repository 05/10/2018/ [id number] Ambulatory [place] 018 [facility] Other [place] Repository 05/10/2018 [id number] Ambulatory [facility] lding:OLS.A Repository 05/09/2018 [id number] Ambulatory [facility] lding:OLS.A Repository 05/05/2018 [id number] Ambulatory [facility] lding:OLS.A Repository 05/04/2018 [id number] [facility] lding:OLS.A Repository 05/03/2018 [id number] [facility] lding:OLS.A Repository 05/02/2018 [id number] [facility] lding:OLS.A Repository 05/01/2018 [id number] [facility] lding:OLS.A Repository 04/29/2018 [id number] [facility] lding:OLS.A Repository 04/28/2018 [id number] [facility] lding:OLS.A Repository 04/27/2018 [id number] [facility] lding:OLS.A Repository 04/20/2018/ [id number] XAVIER MERCADO Inpatient [place] [facility]18 Encounter Clinic Other [place] Repository 04/20/2018/ [id number] Emergency BBuilding:[address] Repository 04/14/2018/ [id number] Ambulatory [place] 018 [facility] Main [place] Repository 04/14/2018/ [id number] Ambulatory [place] [facility]18 [facility] [place] Repository 04/14/2018 [id number] [facility] Rep[facility] 04/11/2018/ [id number] Ambulatory [place] [facility]18 [facility] Other [place] Repository 03/17/2018/ [id number] [facility] Inpatient [place] 018 , Encounter Clinic Other [facility] Repository 03/17/2018/ [id number] Ambulatory [place] [facility]18 [facility] [place] Repository 03/13/2018/ [id number] Ambulatory [place] [facility]18 [facility] [place] Repository 03/08/2018/ [id number] Ambulatory [place] [facility]18 [facility] [place] Repository 03/06/2018 [id number] Ambulatory [place] [facility] [place] Repository 03/06/2018/ [id number] Ambulatory [place] [facility]18 [facility] [place] Repository 02/24/2018/ [id number] NEREIDA RUIZ, Inpatient BBuilding:Tulio Yan Encounter SURRoom: Health 0234Bed: A [facility] Repository 02/17/2018/ [id number] Ambulatory [place] [facility]18 [facility] [place] Repository 02/14/2018/ [id number] Ambulatory [place] [facility]18 [facility] [place] Repository 02/10/2018/ [id number] Ambulatory [place] [facility]18 [facility] [place] Repository 02/07/2018/ [id number] Ambulatory [place] [facility]18 [facility] [place] Repository 02/07/2018/ [id number] Ambulatory [facility] [place] Repository 02/07/2018/ [id number] Ambulatory [facility] Other [place] Repository 02/07/2018/ [id number] Ambulatory [place] [facility] 02/03/2018/ [id number] Ambulatory [facility] [place] Repository 01/25/2018/ [id number] ANA DAVISON MD. Inpatient BBuilding:Tulio Yan Encounter SURRoom: Health 0221Bed: A Foundation Repository 01/20/2018/ [id number] Ambulatory [facility] [place] Repository 01/13/2018 [id number] Ambulatory [facility] Other [place] Repository 01/13/2018 [id number] Ambulatory [facility] Main [place] Repository 01/13/2018/ [id number] Ambulatory [facility] Other [place] Repository 01/11/2018 [id number] Ambulatory [facility] [place] Repository 01/11/2018/ [id number] Ambulatory [place] [facility]18 [facility]AKLBG Repository 01/06/2018/ [id number] Ambulatory [facility] Other [place] Repository 01/06/2018/ [id number] Ambulatory [place] [facility]18 [facility]CAGWS Repository 12/30/2017/ [id number] Ambulatory [place] 018 [facility] Other [place] Repository 12/19/2017/ [id number] GALLITO CLARKE Inpatient [place] 018 [facility] Other [place] Repository 12/19/2017/ [id number] Ambulatory [place] 018 [facility] Other [place] Repository 12/12/2017 [id number] Ambulatory [place] Main [place] Repository 12/12/2017/ [id number] Ambulatory [place] 018 [facility] [place] Repository 12/12/2017/ [id number] Ambulatory [place] 018 [facility] Main [place] Repository 12/05/2017/ [id number] Ambulatory [place] 018 [facility] [place] Repository 12/02/2017/ [id number] Ambulatory [place] 018 [facility] [place] Repository 12/02/2017/ [id number] Ambulatory [place] 018 [facility] [place] Repository 11/25/2017 [id number] Ambulatory [facility] Main [place] Repository 11/25/2017/ [id number] Ambulatory [address] Other [place] Repository PAYERS PAYERS ENCOUNTER GUARANTOR PAYER SUBSCRIBER SOURCE 11/03/2018 ROSA L Primary ROSA L [place] [id number] E Insurance:MEDICARE PART [facility]: [facility] Number: [id number] [facility] [id number] Repository [address] OF Date:2018-11-03 [place], [place] [address]Oao: () 11/03/2018 Secondary ROSA L [place] Insurance:ANTHEMPolicy GREGORYDOB: Community Number: [id number] Hospital [id number] Repository e Date:8799-18-49HO [address] [place] [address]BJ: 11/03/2018 Tertiary Insurance:SELF NOT GIVENUNK [place] PAY INSURANCEPolicy Community Number: Effective Hospital Date:2018-11-03 Repository 11/03/2018 ROSA L [id number] Primary ROSA L [place] AVEC/O Insurance:MEDICARE PART [facility]: [facility] BPolicy Number: [id number] [place] [id number] Repository [place] [address]Lrq: Date:2018-11-03 () 11/03/2018 Secondary ROSA L [place] Insurance:ANTHEMPolicy GREGORYDOB: Community Number: [id number] Hospital [id number] Repository e Date:5646-05-42[address] [address]FE: 11/03/2018 Tertiary Insurance:SELF NOT GIVENUNK [place] PAY INSURANCEPolicy Community Number: Effective Hospital Date:2018-11-03 Repository 11/03/2018 ROSA L [id number] Primary ROSA L [place] AVEC/O Insurance:MEDICARE PART DESTINEEORYDOB: [facility] [place]ola BPolicy Number: [id number] Memorial Hospital [id number] Repository [place] [address]Jvf: Date:2018-11-03 () 11/03/2018 Secondary ROSA L [place] Insurance:ANTHEMPolicy DESTINEEORYDOB: Community Number: [id number] Hospital [id number] Repository e Date:4349-03-13QH [address] [address]BG: 11/03/2018 Tertiary Insurance:SELF NOT GIVENUNK [place] PAY INSURANCEPolicy Community Number: Effective Hospital Date:2018-11-03 Repository 11/03/2018 ROSA L [id number] Primary ROSA L [place] W[place] AVEC/O Insurance:MEDICARE PART DESTINEEFLOWER HOSPITALB: [facility] BPolicy Number: [id number] Memorial Hospital [id number] Repository [place] [address]Xws: Date:2018-11-03 () 11/03/2018 Secondary ROSA L [place] Insurance:ANTHEMPolicy GREGORYDOB: Community Number: [id number] Hospital [id number] Repository e Date:6838-46-97[address], [place] [address]YL: 11/03/2018 Tertiary Insurance:SELF NOT GIVENUNK [place] PAY INSURANCEPolicy Community Number: Effective Hospital Date:2018-11-03 Repository 11/03/2018 ROSA L [id number] Primary ROSA L [place] AVEC/O Insurance:MEDICARE PART SOLANGEB: [facility]en BPolicy Number: [id number] Memorial Hospital [id number] Repository [place] [address]Cut: Date:2018-11-03 () 11/03/2018 Secondary ROSA L [place] Insurance:ANTHEMPolicy DESTINEEORYDOB: Community Number: [id number] Hospital [id number] Repository e Date:9517-41-72JR [address] [place] [address] 176[address]RC: 11/03/2018 Tertiary Insurance:SELF NOT GIVENUNK [place] PAY INSURANCEPolicy Community Number: Effective Hospital Date:2018-11-03 Repository 11/03/2018 ROSA L [id number] Primary ROSA L [place] W[place] AVEC/O Insurance:MEDICARE PART DESTINEEORYDOB: [facility] BPolicy Number: [id number] Memorial Hospital [id number] Repository [place] [address]Zvp: Date:2018-11-03 () 11/03/2018 Secondary ROSA L [place] Insurance:ANTHEMPolicy DEVINDOB: Community Number: [id number] Hospital [id number] Repository e Date:6308-11-32CI [address]JXSMWEA[address] [place] [address] 08[address]SH: 11/03/2018 Tertiary Insurance:SELF NOT GIVENUNK [place] PAY INSURANCEPolicy Community Number: Effective Hospital Date:2018-11-03 Repository 11/03/2018 ROSA L [id number] Primary ROSA L [place] AVEC/O Insurance:MEDICARE PART DESTINEEORYDOB: [facility] [place] BPolicy Number: [id number] Memorial Hospital [id number] Repository [place] [address]Duf: Date:2018-11-03 () 11/03/2018 Secondary ROSA L [place] Insurance:ANTHEMPolicy DESTINEEORYDOB: Community Number: [id number] Hospital [id number] Repository e Date:0132-36-98CK [address]XZWZRTD, [place] [address]XA: 11/03/2018 Tertiary Insurance:SELF NOT GIVENUNK [place] PAY INSURANCEPolicy Community Number: Effective Hospital Date:2018-11-03 Repository 11/01/2018 ROSA L Primary ROSA L [place] [id number] E Insurance:ANTHEMPolicy DESTINEEORYDOB: [facility] Number: [id number] General [id number] Repository [place] e Date:0023-32-00[address] [address]Xru: (178) 346754CTTADJF, [place] [phone] () [address]JE: 11/01/2018 Secondary ROSA L [place] Insurance:MEDICARE PART SOLANGEB: [facility] A BPolicy Number: [id number] Hospital [id number] Repository Date:2018-10-30 11/01/2018 Tertiary Insurance:SELF NOT GIVENUNK [place] PAY INSURANCEPolicy Community Number: Effective Hospital Date:2018-10-30 Repository 10/30/2018 ROSA L [id number] Primary Insurance:SELF NOT GIVENUNK [place] AVEC/O PAY INSURANCEPolicy [facility] Number: Effective [facility], Date:2018-10-30 [place]ository [place] [address]Akv: () 10/30/2018 ROSA L [id number] Primary ROSA L [place] WABASH AVEC/O Insurance:MEDICARE PART DESTINEEORYDOB: [facility] A BPolicy Number: [id number] Memorial Hospital [id number] [place]ository [place] [address]Fng: Date:2018-10-30 () 10/30/2018 Secondary ROSA L [place] Insurance:ANTHEMPolicy DESTINEEORYDOB: Community Number: [id number] Hospital [id number] Repository e Date:9136-08-28WU [address] [place] [address]VW: 10/30/2018 Tertiary Insurance:SELF NOT GIVENUNK [place] PAY INSURANCEPolicy Community Number: Effective Hospital Date:2018-10-30 Repository 10/23/2018 ROSA L Primary ROSA L [place] [id number] E Insurance:MEDICARE PART DESTINEEORYDOB: [facility] BPolicy Number: [id number] Memorial Hospital [id number] Repository [address] OF Date:2018-10-23 [place], [place] [address]Pba: (RF) 10/23/2018 Secondary ROSA L [place] Insurance:ANTHEMPolicy GREGORYDOB: Community Number: [id number] Española [id number] Repository e Date:3645-42-47FF [address]WHDBFVZ, [place] [address]UV: 10/23/2018 Tertiary Insurance:SELF NOT GIVENUNK [place] PAY INSURANCEPolicy Community Number: Effective Hospital Date:2018-10-23 Repository 10/16/2018 ROSA L [id number] Primary ROSA L [place] AVEC/O Insurance:MEDICARE PART SOLANGEB: [facility] Nicola BPolicy Number: [id number] Memorial Hospital [id number] [place]ository [place] [address]Mzh: Date:2018-10-16 (OR) 10/16/2018 Secondary ROSA L [place] Insurance:ANTHEMPolicy GREGORYDOB: Community Number: [id number] Hospital [id number] Repository e Date:0683-49-38LL [address]JYDOLMI, [place] [address]NQ: 10/16/2018 Tertiary Insurance:SELF NOT GIVENUNK [place] PAY INSURANCEPolicy Community Number: Effective Hospital Date:2018-10-16 Repository 10/10/2018 ROSA L Primary ROSA L [place] [id number] E Insurance:MEDICARE PART DESTINEEORYDOB: [facility] BPolicy Number: [id number] Ville [id number] Repository [place] Date:2018-10-10 [address]Ajl: () 10/10/2018 Secondary ROSA L [place] Insurance:ANTHEMPolicy GREGORYDOB: Community Number: [id number] Hospital [id number] Repository e Date:0850-74-31XW [address]ISWZVPF, [place] [address]BO: 10/10/2018 Tertiary Insurance:SELF NOT GIVENUNK [place] PAY INSURANCEPolicy Community Number: Effective Hospital Date:2018-10-10 Repository 10/07/2018 ROSA L Primary ROSA L [place] [id number] E Insurance:MEDICARE PART GREGORYDOB: [facility] BPolicy Number: [id number] [place]ille [id number] Repository [place] Date:2018-10-07 [address]Hut: () 10/07/2018 Secondary ROSA L [place] Insurance:ANTHEMPolicy GREGORYDOB: Community Number: [id number] Española [id number] Repository e Date:0173-77-19EE [address]ZBVPJJI, [place] [address]XD: 10/07/2018 Tertiary Insurance:SELF NOT GIVENUNK [place] PAY INSURANCEPolicy Community Number: Effective Hospital Date:2018-10-07 Repository 10/01/2018 ROSA L Primary ROSA L [place] [id number] E Insurance:MEDICARE PART GREGORYDOB: [facility] BPolicy Number: [id number] Memorial Hospital [id number] Repository [place] Date:2018-10-01 9[address]Aff: () 10/01/2018 Secondary ROSA L [place] Insurance:ANTHEMPolicy GREGORYDOB: Community Number: [id number] Hospital [id number] Repository e Date:8990-95-96ND [address]OYACSIF, [place] [address]XL: 10/01/2018 Tertiary Insurance:SELF NOT GIVENUNK [place] PAY INSURANCEPolicy Community Number: Effective Hospital Date:2018-10-01 Repository 10/01/2018 ROSA L [id number] Primary ROSA L [place] E [place] Insurance:MEDICARE PART GREGORYDOB: [facility] BPolicy Number: [id number], [place] [id number] Repository [address]Odb: (468) Date:2018-10-01 [phone] () 10/01/2018 Secondary ROSA L [place] Insurance:ANTHEMPolicy GREGORYDOB: Community Number: [id number] Hospital [id number] Repository e Date:5256-09-82BE [address]LCCCXHZ[address] [place] [address] 28[address]XX: 10/01/2018 Tertiary Insurance:SELF NOT GIVENUNK [place] PAY INSURANCEPolicy Community Number: Effective Hospital Date:2018-10-01 Repository 10/01/2018 ROSA L Primary ROSA L [place] [id number] E Insurance:MEDICARE PART GREGORYDOB: [facility] BPolicy Number: [id number] Memorial Hospital [id number] Repository [place] Date:2018-10-01 [address]Tfs: () 10/01/2018 Secondary ROSA L [place] Insurance:ANTHEMPolicy DESTINEEORYDOB: Community Number: [id number] Hospital [id number] Repository e Date:3115-03-86VO [address]CG[address] [place] [address] 720[address]WN: 10/01/2018 Tertiary Insurance:SELF NOT GIVENUNK [place] PAY INSURANCEPolicy Community Number: Effective Hospital Date:2018-10-01 Repository 10/01/2018 ROSA L Primary ROSA L [place] [id number] E Insurance:MEDICARE PART GREGORYDOB: [facility] BPolicy Number: [id number] Memorial Hospital [id number] Repository [place] Date:2018-10-01 17[address]Nkt: () 10/01/2018 Secondary ROSA L [place] Insurance:ANTHEMPolicy GREGORYDOB: Community Number: [id number] Española [id number] Repository e Date:2101-22-10VE [address]WYWMPQM, [place] [address]VU: 10/01/2018 Tertiary Insurance:SELF NOT GIVENUNK [place] PAY INSURANCEPolicy Community Number: Effective Hospital Date:2018-10-01 Repository 10/01/2018 ROSA L Primary ROSA L [place] [id number] E Insurance:MEDICARE PART GREGORYDOB: [facility] BPolicy Number: [id number] Memorial Hospital [id number] Repository [place] Date:2018-10-01 [address]Bcw: () 10/01/2018 Secondary ROSA L [place] Insurance:ANTHEMPolicy GREGORYDOB: Community Number: [id number] Hospital [id number] Repository e Date:2305-02-06IR [address]KB[address]FH[address] [place] [address] 229[address]IF: 10/01/2018 Tertiary Insurance:SELF NOT GIVENUNK [place] PAY INSURANCEPolicy Community Number: Effective Hospital Date:2018-10-01 Repository 10/01/2018 ROSA L Primary ROSA L [place] [id number] E Insurance:MEDICARE PART GREGORYDOB: [facility] Number: [id number] Memorial Hospital [id number] Repository [place] Date:2018-10-01 146[address]Yde: () 10/01/2018 Secondary ROSA L [place] Insurance:ANTHEMPolicy GREGORYDOB: Community Number: [id number] Española [id number] Repository e Date:0178-45-23GX [address]NZXMKCE, [place] [address]TR: 10/01/2018 Tertiary Insurance:SELF NOT GIVENUNK [place] PAY INSURANCEPolicy Community Number: Effective Hospital Date:2018-10-01 Repository 10/01/2018 ROSA L Primary ROSA L [place] [id number] E Insurance:MEDICARE PART GREGORYDOB: [facility]ol[facility] Number: [id number] Memorial Hospital [id number] Repository [place] Date:2018-10-01 680[address]Bhu: () 10/01/2018 Secondary ROSA L [place] Insurance:ANTHEMPolicy DESTINEEORYDOB: Community Number: [id number] Hospital [id number] Repository e Date:1874-56-23YG [address] [place] [address] 54[address]QL: 10/01/2018 Tertiary Insurance:SELF NOT GIVENUNK [place] PAY [facility] Number: Effective Hospital Date:2018-10-01 Repository 10/01/2018 ROSA L Primary ROSA L [place] [id number] E Insurance:MEDICARE PART [facility]ORYDOB: [facility] Number: [id number] Memorial Hospital [id number] Repository [place] Date:2018-10-01 344[address]Eko: () 10/01/2018 Secondary ROSA L [place] Insurance:ANTHEMPolicy DEVINDOB: Community Number: [id number] Hospital [id number] Repository e Date:0036-25-61RM [address] [place] [address]UW: 10/01/2018 Tertiary Insurance:SELF NOT GIVENUNK [place] PAY [facility] Community Number: Effective Hospital Date:2018-10-01 Repository 09/26/2018 ROSA L [id number] Primary Insurance:SELF NOT GIVENUNK [place] PAY [facility] Number: Effective [facility] [place] [id number]: Date:2018-09-26 Repository (HP) 09/12/2018 ROSA L [id number] Primary Insurance:SELF NOT GIVENUNK [place] PAY [facility]Pol[facility], Number: [facility] [place] [id number]: Date:2018-09-12 Repository () 08/29/2018 ROSA L [id number] Primary Insurance:SELF NOT GIVENUNK [place] [facility] Number: Effective [place] [id number]: Date:2018-08-29 Repository () 08/15/2018 ROSANicola [id number] Primary Insurance:SELF NOT GIVENUNK [place] [facility] Number: Effective Hospital [place] [id number]: Date:2018-08-15 Repository (HP) 08/14/2018 [address] [id number] Primary [address], Insurance:MEDICARE PART SOLANGEB: [facility] [address]Awq: BPolicy Number: [id number] Repository [id number] [place] () Date:2018-08-09 - [place], [place] 6748-26-73Jaed [address]Dns: (330) Name:[facility] 012[facility]9 [facility] ()Tel: (080) [address] [address]Gvppkgmcl, [place] 000-0000 () 45[address]TZ: 08/14/2018 Secondary [facility] Insurance:ELSIE JACKSON: [facility] [id number] Repository Number: [place] [id number] [place], [place] e Date:2018-08-09 [address]Cla: (723) [id number] Name:[facility] [phone] [address]Rvlbhrb, [place] ()Tel: ([phone]) [phone]: [phone] (WP) 07/31/2018 UNIT [id number] Primary Insurance:SELF [address] Number: DESTINEEARAVINDB: [facility] [address]Jjl: Effective [id number] Repository Date:2018-07-26 WABA () 5423-42-15Uste Name:[address] [place] [address]Sgj: (HP) (WP) 07/11/2018 [facility] Primary Insurance:SELF [facility] CAREDOB: PAYPolicy Number: MANUEL: [facility] [id number] Effective [id number] Repository [facility] [facility], Date:2018-07-11 [facility] [address]Vmw: 7624-24-16Lidd Name:[address] [place] [address] 748[address]Gck: (330) (HP) [phone] (HP) (WP) 07/11/2018 ROSA L Primary [facility] SOLANGEB: Insurance:MEDICARE PART MANUEL: [facility] A INSCOPolicy Number: [id number] Repository [place] [id number], [place] Date:2017-05-14 - [place] [address]~JOIIIKIG85 2333-86-02Bsog 419[address]Rnt: 330) @[facility]ENTERel: Name:[facility] [phone] [address] (HP)Tel: (000) (HP)Tel: (999) 189[address]IozjrbdoAVENAL, [place] 000-0000 (WP) [phone] (WP) [address]CI: 07/11/2018 Secondary [facility] Insurance:MEDICARE PART MANUEL: [facility] B INSCOPolicy Number: [id number] Repository [id number] [place] Date:2017-05-14 - [place] 1624-25-94Foul [address]Qtf: (330) Name:[facility] [phone] Administrators LLCPO (HP)Tel: (000) [address] [address]Wbkbpmzsn, [place] 000-0000 (WP) 407[address]WO: 07/11/2018 Tertiary [facility] Insurance:ELSIE JACKSON: [facility]-SECONDAPolunitypoint [facility] [id number] Repository Number: ROB [id number] [place], [place] e Date:2017-05-14 [address]Bvk: (100) 0880-24-61Jdkm Name:[facility] [phone] [address]Iovirfb, [place] (HP)Tel: [phone]: 000-0000 (WP) 07/03/2018 ROSA L [facility]: Insurance:MEDICARE PART [facility]: [facility] APolicy Number: [id number] Repository SRIKANTH [id number] [place], [place] Date:2018-07-03 [place] [address]~PNTVZKSY26 3571-22-38Fvtn 1967[address]Dai: 330) @[facility]ENTERel: Name:[facility] [phone] [address] (HP)Tel: (000) (HP)Tel: (999) 813995Jgfkkluv, [place] 000-0000 (WP) [phone] (WP) [address]IY: 07/03/2018 Secondary [facility] Insurance:MEDICARE PART [facility]: [facility] BPolicy Number: [id number] Repository [id number] [place] Date:2018-07-03 [place], [place] 3972-03-67Gxfq [address]Cyh: (330) Name:[facility] [phone] Administrators LLCPO (HP)Tel: (000) [address] [address]Mhxgmewum, [place] 000-0000 (WP) [address]SC: 07/03/2018 Tertiary [facility] Insurance:[facility]ITALFRANCISCO FELIPEKETTER[facility]: [facility] [id number] Repository Number: ROB [id number] [place], [place] e Date:2018-07-03 [address]Pmh: 330 5788-93-22Ooky Name:[facility] [id number] [address] [place] [address] ()Tel: ([phone]) [phone]: [phone] () 06/05/2018 ROSA L [id number] Primary ROSA L [place] Insurance:MEDICARE PART GREGORYDOB: [facility] BPolicy Number: [id number] Hospital [place] [address]Soa: [id number] Repository Date:2018-06-05 () 06/05/2018 Secondary ROSA L [place] Insurance:ANTHEMPolicy GREGORYDOB: Community Number: [id number] Hospital [id number] Repository e Date:1947-11-63QW [address] [place] [address] 20299AT: 06/05/2018 Tertiary Insurance:SELF NOT GIVENUNK [place] PAY INSURANCEPolicy Community Number: Effective Hospital Date:2018-06-05 Repository 06/04/2018 ROSA L [id number] Primary ROSA L [place] Insurance:MEDICARE PART GREGORYDOB: [facility] BPolicy Number: [id number] [place] [address]Nww: [id number] Repository Date:2018-06-05 () 06/04/2018 Secondary ROSA L [place] Insurance:ANTHEMPolicy GREGORYDOB: Community Number: [id number] Hospital [id number] Repository e Date:8614-72-46TC [address] [place] [address] 15310ZX: 06/04/2018 Tertiary Insurance:SELF NOT GIVENUNK [place] PAY INSURANCEPolicy Community Number: Effective Hospital Date:2018-06-04 Repository 05/25/2018 ROSA L [id number] Primary ROSA L [place] Insurance:MEDICARE PART GREGORYDOB: [facility] BPolicy Number: [id number] [facility] [place] [address]Yog: [id number] Repository Date:2018-05-25 () 05/25/2018 Secondary ROSA L [place] Insurance:ANTHEMPolicy DEVINDOB: [facility] Number: [id number] Hospital [id number] Repository e Date:6385-84-67CD [address]MXFIKNZ, [place] [address]VZ: 05/25/2018 Tertiary Insurance:SELF NOT GIVENUNK [place] [facility] Number[facility] Effective Hospital Date:2018-05-25 Repository 05/22/2018 ROSANicola DE Primary Insurance:SELF NOT GIVENUNK [place] [facility] Number: [facility] [place] [id number]: Date:2018-05-22 Repository () 05/16/2018 Rosa De Primary Insurance:SELF NOT GIVENUNK [place] [facility]Y [facility] Number: [facility] [place] [id number]: Date:2018-05-16 Repository () 05/11/2018 Rosanicola De Primary Insurance:SELF NOT GIVENUNK [place] [facility]Y [facility] Number: [facility] [place] [id number]: Date:2018-05-11 Repository () 05/10/2018 ROSA [id number] Primary Insurance:SELF NOT GIVENUNK [place] [facility]Y [facility] Number: Effective [place] [id number]: Date:2018-05-10 Repository () 05/09/2018 ROSA DE Primary Insurance:SELF NOT GIVENUNK [place] [facility]Y [facility] Number: Effective [place] [id number]: Date:2018-05-09 Repository () 05/05/2018 Dresdennicola Beltran121 Primary Insurance:SELF NOT GIVENUNK [place] [facility]Y [facility] Number: [facility] [place] [id number]: Date:2018-05-05 Repository () 05/04/2018 ROSANicola DE Primary Insurance:SELF NOT GIVENUNK [place] [facility]Y [facility], Number: Effective [facility] [place] [id number]: Date:2018-05-04 Repository () 05/03/2018 Dresdennicola Beltran121 Primary Insurance:SELF NOT GIVENUNK [place] [facility]Y [facility] Number: [facility] [place] [id number]: Date:2018-05-03 Repository () 05/02/2018 Rosanicola Beltran121 Primary Insurance:SELF NOT GIVENUNK [place] [facility] Number: Effective [place] [id number]: Date:2018-05-02 Repository (HP) 05/01/2018 Dresdennicola Beltran121 Primary Insurance:SELF NOT GIVENUNK [place] [facility]Y [facility] Number: [facility] [place] [id number]: Date:2018-05-01 Repository () 04/29/2018 Dresdennicola Beltran121 Primary Insurance:SELF NOT GIVENUNK [place] [facility] Number: Effective [facility] [place] [id number]: Date:2018-04-29 Repository () 04/28/2018 Dresdennicola Beltran121 Primary Insurance:SELF NOT GIVENUNK [place] [place] Villal[facility] [place] [address]Mkt: Date:2018-04-28 Repository () 04/27/2018 Rosanicola Beltran121 Primary Insurance:SELF NOT GIVENUNK [place] Villalba [facility] [place] [address]Ctx: Date:2018-04-27 Repository (HP) 04/20/2018 ROSA L Primary [facility]: Insurance:MEDICARE PART MANUEL: [facility] [id number] BPolicy Number: [id number] Repository [place] [id number], [place] Date:2018-04-20 - [place] [address]~[id number] 50693Xte: (307) @[facility].MICHAELLEel: Name:[facility] [phone] Administrators LLCPO (HP)Tel: (000) (HP)Tel: (999) [address] [address]Rqjbowhqw, [place] 000-0000 (WP) [phone] (WP) 50865LM: 04/20/2018 Secondary ROSA L [facility] Insurance:ELSIE PATEL [facility] [id number] Repository Number: WABA [id number] [place], [place] e Date:2018-04-20 386[address]Swk: (903) [id number] Name:O [phone] [place] [address] (HP)Tel: [phone]: 000-0000 (WP) 04/14/2018 ROSA L Primary ROSA L [facility] NICHOLSDOB: Insurance:MEDICARE A NICHOLSDOB: [facility] AND BPolicy Number: [id number] Repository [place] [id number] [place], [place] Date: [address]Yuc: (HP) 04/14/2018 Secondary ROSA L [facility] Insurance:BLUE CARD [facility] [id number] Repository Number: [id number] e Date: 02/24/2018 ROSA L Primary ROSA L [facility] GREGORYDOB: Insurance:MEDICARE PART [facility]: [facility] APolicy Number: [id number] Repository [place] [id number] [place], [place] Date:2018-02-24 [place] [address]~[id number] 08212Gtd: (680) @[facility].MICHAELLEel: Name:[facility] [phone] [address] (HP)Tel: (000) (HP)Tel: [phone], [place] 000-0000 (WP) [phone] (WP) [phone]: 02/24/2018 Secondary ROSA L [facility] Insurance:[facility]ICARE PART [facility]: [facility] BPolicy Number: [id number] Repository [id number] [place] Date:2018-02-24 - [place], [place] [id number] [address]Ump: (330) Name:[facility] [phone] Administrators LLCPO (HP)Tel: (000) [address] [address]Kpxnjqamp, [place] 000-0000 (WP) [address]YQ: 02/24/2018 Tertiary ROSA L [facility] Insurance:ELSIE [facility]EL [facility]: [facility] [id number] Repository Number: WABA [id number] [place], [place] e Date:2018-02-24 280[address]Ntp: [phone]) 0517-02-27Gede Name:[facility] [phone] [place] [address] ()Tel: [phone]: 000-0000 (WP) 02/07/2018 ROSA L Primary ROSA L [facility]: Insurance:[facility]ICARE A [facility]: [facility] AND BPolicy Number: [id number] Repository [place] [id number] [place], [place] Date: [address]Axz: (HP) 02/07/2018 Secondary ROSA L [facility] [id number] Repository Number: [id number] e Date: 01/25/2018 ROSA L Primary ROSA L [facility] Insurance[facility]: [facility] APolicy Number: [id number] Repository [place] [id number] [place], [place] Date:2018-01-25 [place] [address]~[id number] 519[address]Nlx: 330) @[facility].MICHAELLEel: Name:Emilil Code [phone] [address] (HP)Tel: (000) (HP)Tel: [phone], [place] 000-0000 (WP) [phone] (WP) [address]BB: 01/25/2018 Secondary ROSA L [facility] Insurance:ELSIE JACKSON: [facility] [id number] Repository Number: PRHILDA [id number] [place], [place] e Date:2018-01-25 [address]Clr: 330 [id number] Name:[facility] [phone] [place] [address] (HP)Tel: [phone]) [phone]: 000-0000 (WP) 01/25/2018 Tertiary ROSA L [facility] Insurance:[facility]IC[facility] PART [facility]: [facility] BPolicy Number: [id number] Repository [id number] [place] Date:2018-01-25 - [place], [place] 7964-78-16Firc [address]Yvi: (330) Name:[facility] [phone] Administrators LLCPO (HP)Tel: (000) [address] [address]Ejsdglkmc, [place] 000-0000 (WP) [address]RV: 01/11/2018 ROSA L Primary ROSA L [facility] DEVINDOB: Insurance:[facility]IC[facility] A [facility] AND BPolicy Number: [id number] Repository [place] [id number] [place], [place] Date: [address]Djv: (HP) 01/11/2018 Secondary ROSA L [facility] Insurance:BLUE MARJORIE FELIPEOHIOHE[facility] MED[facility] CENTERB: [facility] [id number] Repository Number: [id number] e Date: 01/06/2018 ROSA L Primary ROSA L [facility] SOLANGEB: Insurance:MEDICARE A DESTINEEOHIOHEALTH SOUTHEASTERN MEDICAL CENTERMICHELLE: [facility] AND BPolicy Number: [id number] Repository [place] [id number] [place], [place] Date: [address]Wkc: () 01/06/2018 Secondary ROSA L [facility] Insurance:BLUE CARD MANUEL: [facility] [id number] Repository Number: [id number] e Date:
== END ==
LOC: OLS.AVEB 04:00
PROVIDERS: Visit Provider Family Medicine
DX: D64.9 Anemia, unspecified (principal)
CPT/HCPCS: 36415; 83880; 85027

== ENCOUNTER → 2018-10-16 04:00 | Outpatient (REF) | payer MEDICARE, BC, SELFPAY ==
[2018-10-01 14:34] VITALS: BMI 37.0
[2018-10-16 09:41] LABS: Hematocrit 34.6 % (37-47); Hemoglobin 10.1 g/dl (12.0-15.0); Mean Corp Hgb Conc 29.2 g/gl (32-36); Mean Corpuscular Hgb 28.1 pg (27.0-32.0); Mean Corpuscular Volume 96.1 fL (81-99); Mean Platelet Vol. 10.1 fl (6.2-12.0); Platelet Count 288 K/mm3 (150-450); RBC Distribution Width CV 16.7 % (11.6-14.6); RBC Distribution Width SD 58.7 fl (35.1-43.9); White Blood Count 6.7 K/mm3 (4.4-11.0)
[2018-10-16 09:42] LABS: Scan Indicated on CBC? Y/N NO
[2018-10-16 09:53] LABS: Anion Gap 6 (5-15); BUN 22 mg/dL (7-18); Calcium,Total 8.6 mg/dL (8.5-10.1); Chloride 96 mmol/L (98-107); EST Glomerular Filtration Rate 56 mL/min (>60); Est Glom Filt Rate - Afr Amer 68 mL/min (>60); Glucose 96 mg/dL (74-106); Potassium 4.5 mmol/L (3.5-5.1); Sodium Level 139 mmol/L (136-145)
[2018-11-03 13:46] VITALS: BMI 41.3
--- OUTSIDE RECORDS SUMMARY | 2019-01-17 14:47 | XMS RPT_ITS ---
:1935 Author Organization OHIP Support Name Relationship Address Phone ASHA BELTRAN Unavailable [address] + [place] [address] R Unavailable Unavailable Unavailable ASHA BELTRAN Unavailable [address] + [place] [address] R Unavailable Unavailable Unavailable ASHA BELTRAN Unavailable [address] + [place] [address] R Unavailable Unavailable Unavailable ASHA BELTRAN Unavailable [address] + [place] [address] R Unavailable Unavailable Unavailable ASHA BELTRAN Unavailable [address] + [place] [address] R Unavailable Unavailable Unavailable R Unavailable Unavailable Unavailable ASHA BELTRAN Unavailable [address] + [place] [address] R Unavailable Unavailable Unavailable R Unavailable Unavailable Unavailable ASHA BELTRAN Unavailable [address] + [place] [address] R Unavailable Unavailable Unavailable R Unavailable Unavailable Unavailable LORRIE BELTRAN Unavailable [address] + [place] [address] ASHA BELTRAN Unavailable [address] + [place] [address] R Unavailable Unavailable Unavailable ASHA BELTRAN Unavailable [address] + [place] [address] R Unavailable Unavailable Unavailable R Unavailable Unavailable Unavailable ASHA BELTRAN Unavailable [address] + [place] [address] R Unavailable Unavailable Unavailable R Unavailable Unavailable Unavailable DEVIN, ASHA Unavailable [address] + [place] [address] R Unavailable Unavailable Unavailable R Unavailable Unavailable Unavailable DEVIN ASHA Unavailable [address] + [place] [address] R Unavailable Unavailable Unavailable R Unavailable Unavailable Unavailable Lorrie Beltran Unavailable [address] + [place] [address] Devin Asha Unavailable [address] + [place] [address] R Unavailable Unavailable Unavailable Lorrie Beltran Unavailable [address] + [place] [address] Devin Asha Unavailable [address] + [place] [address] R Unavailable Unavailable Unavailable Lorrie Beltran Unavailable [address] + [place] [address] Devin Asha Unavailable [address] [facility] + [place] [address] R Unavailable Unavailable Unavailable Lorrie Beltran Unavailable [address] + [place] [address] Devin, Asha Unavailable [address] + [place] [address] R Unavailable Unavailable Unavailable Lorrie Beltran Unavailable [address] + [place] [address] Devin, Asha Unavailable [address] [facility] + [place] [address] R Unavailable Unavailable Unavailable Lorrie Beltran Unavailable [address] [facility] + [place] [address] Devin, Asha Unavailable [address] + [place] [address] R Unavailable Unavailable Unavailable Lorrie Beltran Unavailable [address] + [place] [address] Devin, Asha Unavailable [address] + [place] [address] R Unavailable Unavailable Unavailable Heather Beltranrick Unavailable [address] [facility] + [place] [address] Devin Asha Unavailable [address] [facility] + [place] [address] R Unavailable Unavailable Unavailable Devin, Lorrie Unavailable [address] [facility] + [place] [address] Devin Asha Unavailable [address] [facility] + [place] [address] R Unavailable Unavailable Unavailable Devin, Lorrie Unavailable [address] [facility] + [place] [address] Devin Asha Unavailable [address] [facility] + [place] [address] R Unavailable Unavailable Unavailable Devin Lorrie Unavailable [address] [facility] + [place] [address] Devin Asha Unavailable [address] [place] [address] + [place] [address] R Unavailable Unavailable Unavailable Heather Beltranrick Unavailable [address] [facility] + [place] [address] Devin Asha Unavailable [address] [place] [address] + [place] [address] R Unavailable Unavailable Unavailable Heather Beltranrick Unavailable [address] [place] [address] + [place] [address] Devin Asha Unavailable [address] [place] [address] + [place] [address] R Unavailable Unavailable Unavailable Heather Beltranrick Unavailable [address] [place] [address] + [place] [address] Devin Asha Unavailable [address] [place] [address] + [place] [address] R Unavailable Unavailable Unavailable DEVIN, SHERON Unavailable [address] [facility] + [place] [address] DEVIN, SHERON Unavailable Unavailable + DEVIN, SHERON Unavailable Unavailable + DEVIN, LORRIE Unavailable Unavailable + DEVIN, LORRIE Unavailable Unavailable + DEVIN, SHERON Unavailable [address] [facility] + [place] [address] DEVIN, SHERON Unavailable Unavailable + DEVIN, SHERON Unavailable Unavailable + DEVIN, LORRIE Unavailable Unavailable + DEVIN, LORRIE Unavailable Unavailable + DEVIN, SHERON Unavailable [address] [facility] + [place] [address] DEVIN, SHERON Unavailable Unavailable + DEVIN, SHERON Unavailable Unavailable + DEVIN, LORRIE Unavailable Unavailable + DEVIN, LORRIE Unavailable Unavailable + DEVIN, SHERON Unavailable [address] [facility] + [place] [address] DEVIN, SHERON Unavailable Unavailable + DEVIN, SHERON Unavailable Unavailable + DEVIN, LORRIE Unavailable Unavailable + DEVIN, LORRIE Unavailable Unavailable + DEVIN, SHERON Unavailable [address] [facility] + [place] [address] DEVIN, SHERON Unavailable Unavailable + DEVIN, SHERON Unavailable Unavailable + DEVIN, LORRIE Unavailable Unavailable + DEVIN, LORRIE Unavailable Unavailable + Devin, Lorrie Unavailable [address] [facility] + [place] [address] Devin, Asha Unavailable [address] [facility] + [place] [address] R Unavailable Unavailable Unavailable Devin, Lorrie Unavailable [address] [facility] + [place] [address] Devin, Asha Unavailable [address] [facility] + [place] [address] R Unavailable Unavailable Unavailable Devin, Lorrie Unavailable [address] [facility] + [place] [address] Devin, Asha Unavailable [address] [facility] + [place] [address] R Unavailable Unavailable Unavailable Devin, Lorrie Unavailable [address] [facility] + [place] [address] Devin, Asha Unavailable [address] + [place] [address] R Unavailable Unavailable Unavailable Devin, Lorrie Unavailable [address] + [place] [address] Devin, Asha Unavailable [address] + [place] [address] R Unavailable Unavailable Unavailable Devin, Lorrie Unavailable [address] + [place] [address] Devin, Asha Unavailable [address] + [place] [address] R Unavailable Unavailable Unavailable Devin, Lorrie Unavailable [address] [facility] + [place] [address] Devin, Asha Unavailable [address] [facility] + [place] [address] R Unavailable Unavailable Unavailable Devin, Lorrie Unavailable [address] [facility] + [place] [address] Devin, Asha Unavailable [address] [facility] + [place] [address] R Unavailable Unavailable Unavailable Devin, Lorrie Unavailable [address] [facility] + [place] [address] Devin, Asha Unavailable [address] [facility] + [place] [address] R Unavailable Unavailable Unavailable Devin, Lorrie Unavailable [address] [facility] + [place] [address] Devin, Asha Unavailable [address] [facility] + [place] [address] R Unavailable Unavailable Unavailable Devin, Lorrie Unavailable [address] [facility] + [place] [address] Devin, Asha Unavailable [address] [facility] + [place] [address] R Unavailable Unavailable Unavailable Devin, Lorrie Unavailable [address] + [place] [address] Devin, Asha Unavailable [address] + [place] [address] R Unavailable Unavailable Unavailable Devin, Lorrie Unavailable [address] [facility] + [place] [address] Devin Asha Unavailable [address] [facility] + [place] [address] R Unavailable Unavailable Unavailable Heather Beltranrick Unavailable [address] [facility] + [place] [address] Devin Asha Unavailable [address] [facility] + [place] [address] R Unavailable Unavailable Unavailable Heather Beltranrick Unavailable [address] [facility] + [place] [address] Devin Asha Unavailable [address] [place] [address] + [place] [address] R Unavailable Unavailable Unavailable Heather Beltranrick Unavailable [address] [facility] + [place] [address] Devin Asha Unavailable [address] [place] [address] + [place] [address] R Unavailable Unavailable Unavailable DEVIN, SHERON Unavailable [address] [place] [address] + [place] [address] DEVIN, SHERON Unavailable Unavailable + DEVIN, SHERON Unavailable Unavailable + DEVIN, LORRIE Unavailable Unavailable + DEVIN, LORRIE Unavailable Unavailable + DEVIN, SHERON Unavailable [address] [place] [address] + [place] [address] DEVIN, SHERON Unavailable Unavailable + DEVIN, SHERON Unavailable Unavailable + DEVIN, LORRIE Unavailable Unavailable + DEVIN, LORRIE Unavailable Unavailable + DEVIN, SHERON Unavailable [address] [place] [address] + [place] [address] DEVIN, SHERON Unavailable Unavailable + DEVIN, LORRIE Unavailable Unavailable + DEVIN, LORRIE Unavailable Unavailable + DEVIN, SHERON Unavailable Unavailable + Care Team Providers Name Role Phone Maicol Curran Attending Unavailable Maicol Curran Attending Unavailable Maicol Curran Attending Unavailable Bina, Maicol Attending Unavailable Tray Riggs Attending Unavailable Tray Riggs Referring Unavailable Newman, Mani Primary Care Unavailable Bina, Maicol Attending Unavailable Saw Sorensen Attending Unavailable Saw Sorensen Attending Unavailable Koram, Yadi Naina Admitting Unavailable Koram, Yadi Naina Attending Unavailable Koram, Yadi Naina Referring Unavailable Newman, Mani Primary Care Unavailable Carla Flor Consulting Unavailable Koram, Yadi Naina Consulting Unavailable Saw Sorensen Attending Unavailable Saw Sorensen Attending Unavailable Bina, Maicol Attending Unavailable Ashelfah, Ghasem Admitting Unavailable Ashelfah, Ghasem Attending Unavailable Newman, Mani Primary Care Unavailable Ashelfah, Ghasem Consulting Unavailable Ashelfah, Ghasem Admitting Unavailable Newman, Mani Primary Care Unavailable Brock, Fatmata Consulting Unavailable Brock, Fatmata Attending Unavailable Ashelfah, Ghasem Admitting Unavailable Newman, Mani Primary Care Unavailable Jamar Hernandez Consulting Unavailable White, Fatmata Attending Unavailable Abdiel Arevalo Consulting Unavailable Brock, Fatmata Consulting Unavailable Maicol Curran Attending Unavailable Bina, Maicol Attending Unavailable Saw Sorensen Attending Unavailable Koram, Yadi Naina Admitting Unavailable Koram, Yadi Naina Attending Unavailable Koram, Yadi Naina Referring Unavailable Newman, Mani Primary Care Unavailable Carla Flor Consulting Unavailable Koram, Yadi Naina Consulting Unavailable [...] Care Unavailable Koram, Yadi Naina Consulting Unavailable Newman, Mani Primary Care Unavailable Koram, Yadi Naina Admitting Unavailable Koram, Yadi Naina Attending Unavailable Koram, Yadi Naina Referring Unavailable Carla Flor Consulting Unavailable Saw Sorensen Attending Unavailable Petriandrewa, Saw Attending Unavailable Petrilla, Saw Attending Unavailable Petrilla, Saw Attending Unavailable Petrilla, Saw Attending Unavailable Petrilla, Saw Attending Unavailable Petrilla, Saw Attending Unavailable Petrilla, Saw Attending Unavailable Basil Fermin Attending Unavailable Ashelfah, Ghasem Referring Unavailable Ashelfah, Ghasem Admitting Unavailable Abdiel Arevalo Attending Unavailable Mani Newman [facility] Unavailable David, Jamar Consulting Unavailable Abdiel Arevalo Consulting Unavailable White, Fatmata Consulting Unavailable Ashelfah, Ghasem Admitting Unavailable Mani Newman [facility] Care Unavailable David, Jamar Consulting Unavailable White, Fatmata Attending Unavailable Arevalo, Abdiel Consulting Unavailable White, Fatmata Consulting Unavailable White, Fatmata Attending Unavailable Ashelfah, Ghasem Admitting Unavailable Mani Newman [facility] Unavailable David, Jamar Consulting Unavailable White, Fatmata Consulting Unavailable Mani Newman [facility] Unavailable Ashelfah, Ghasem Admitting Unavailable White, Fatmata Attending Unavailable David, Jamar Consulting Unavailable Abdiel Arevalo Consulting Unavailable Maicol Curran Attending Unavailable Maicol Curran Attending Unavailable Maicol Hawk Attending Unavailable Kee, Brody Chi Referring Unavailable Mani Newman [facility] Unavailable Jay Nicholas Attending Unavailable Kee, Brody Chi Admitting Unavailable Kee, Brody Chi Attending Unavailable Mani Newman [facility] Unavailable Carla Flor Consulting Unavailable Bina, Maicol Attending Unavailable PATY RUIZ., DR. BLACKWELL Primary [facility] Unavailable ANA DAVISON MD. CARLA Yan Consulting Unavailable ANA DAVISON MD. CARLA Yan Admitting Unavailable ANA DAVISON MD. CARLA Yan Attending Unavailable PATY DAVISON, DR. BLACKWELL Primary Care Unavailable JUSTIN PADRON MD Admitting Unavailable JUSTIN PADRON MD Attending Unavailable ANA DAVISON MD. CARLA Yan Consulting Unavailable JUSTIN PADRON MD Consulting Unavailable Chelsey Clay MD Attending Unavailable PATY DAVISON, DR. BLACKWELL Primary Care Unavailable JUSTIN PADRON MD Attending Unavailable PATY DAVISON, DR. BLACKWELL Primary Care Unavailable ANA DAVISON MD. CARLA Yan Admitting Unavailable JUSTIN PADRON MD Consulting Unavailable JUSTIN TARIQ Consulting Unavailable FLOWER TREVINO MD Attending Unavailable PATY DAVISON, DR. BLACKWELL Primary Care Unavailable URIEL RUIZ, FLOWER Attending Unavailable PATY RUIZ., DR. BLACKWELL Primary Care Unavailable FLOWER TREVINO MD Admitting Unavailable EUGENIA QURESHI MD, SPRING ZARAGOZA Consulting Unavailable STEFANIE SPEARS MD Consulting Unavailable REGAN RUIZ, STEFANIE [place] Attending Unavailable PATY RUIZ., DR. BLACKWELL Primary Care Unavailable YUMI BRAVO MD Consulting Unavailable BENNIE NGUYEN DO Consulting Unavailable REGAN RUIZ, STEAFNIE De [place] Attending Unavailable REGAN RUIZ, STEFANIE [place] Referring Unavailable PATY RUIZ., DR. BLACKWELL Primary Care Unavailable LUIS SIMONS, (LINOTYPER) Attending Unavailable MANI NEWMAN Referring Unavailable EHREN, LUIS Olivo, (LINOTYPER) Attending Unavailable MANI NEWMAN H Referring Unavailable GALLITO CLARKE Admitting Unavailable KENYA WILSON () Attending Unavailable LUIS SIMONS, (LINOTYPER) Attending Unavailable MANI NEWMAN Referring Unavailable ASHWINI, COREY E Attending Unavailable ASHWINI, COREY E Referring Unavailable ASHWINI, COREY E Referring Unavailable EHREN, LUIS Geovani, (LINOTYPER) Attending Unavailable MANI NEWMAN H Referring Unavailable EHREN, LUIS Geovani, (LINOTYPER) Referring Unavailable ASHWINI, COREY E Attending Unavailable ASHWINI, COREY E Referring Unavailable EHREN, LUSI J, (LINOTYPER) Attending Unavailable EHRLUIS HAND, (LINOTYPER) Referring Unavailable EHRENLUIS, (LINOTYPER) Attending Unavailable MANI NEWMAN H Referring Unavailable EHREN, LUIS Geovani, (LINOTYPER) Attending Unavailable KARISHMA CLEARY Admitting Unavailable LIMPEROS, CHINTAN Consulting Unavailable TONY BARRYEEM Attending Unavailable EHRNADER HANDLUIS J, (LINOTYPER) Referring Unavailable XAVIER MERCADO Admitting Unavailable CHELSEY CLAY Referring Unavailable LIMPEROS, CHINTAN Consulting Unavailable MADONNA LEE () Attending Unavailable LUIS SIMONS, (LINOTYPER) Attending Unavailable YARIPEROS, CHINTAN Referring Unavailable EHRENLUIS, (LINOTYPER) Attending Unavailable LIMPEROS, CHINTAN Referring Unavailable EHREN, LUIS J, (LINOTYPER) Attending Unavailable LIMPEROS, CHINTAN Referring Unavailable EHREN, LUIS J, (LINOTYPER) Attending Unavailable CHINTAN DEMPSEY Referring Unavailable MARAL CHANEY Admitting Unavailable SHOLA FLORES Attending Unavailable HEATHER LYNN Consulting Unavailable LUIS SIMONS (LINOTYPER) Attending Unavailable COREY MCKEON Attending Unavailable COREY [...] Unavailable LILI MCNAIR Attending Unavailable LUIS SIMONS (LINOTYPER) Referring Unavailable TESTRATY LOZANO Attending Unavailable TESTRAKETY Referring Unavailable COREY MCKEON E Referring Unavailable NEWMAN, JACY Referring Unavailable ASHWINI COREY E Referring Unavailable NEWMAN, MANI Hartmann Attending Unavailable JINA NY (LINOTYPER) Attending Unavailable ASHWINI, COREY E Referring Unavailable NEWMAN, JCAY Referring Unavailable TY MILLS Attending Unavailable NEWMAN, MANI Hartmann Referring Unavailable NEWMAN, MANI Hartmann Attending Unavailable NEWMAN, MANI Hartmann Referring Unavailable COREY MCKEON Referring Unavailable TESTRAKETY Attending Unavailable TESTRAKETY Referring Unavailable ASHWINI, COREY E Attending Unavailable ASHWINI, COREY E Referring Unavailable NEWMAN, JACY Referring Unavailable NEWMAN, MANI Hartmann Attending Unavailable KEE, BRODY CHI Referring Unavailable TESTRAKE, TY Attending Unavailable NEWMAN, MANI Hartmann Referring Unavailable PROBLEMS PROBLEMS DATE TYPE CONDITION / CODE ATTENDING STATUS SOURCE Unknown D64.9 - Anemia, Maicol Curran Active [facility] unspecified / Community D64.9(ICD-10) Hospital Repository Unknown J44.9 - Chronic Maicol Curran Active [facility] obstructive pulmonary Community disease, unspecified / Hospital J44.9(ICD-10) Repository Unknown I10 - Essential Miacol Curran Active [facility] (primary) hypertension Community / I10(ICD-10) Hospital Repository Unknown E78.5 - Maicol Curran Active [facility] Hyperlipidemia, Community unspecified / Hospital E78.5(ICD-10) Repository Unknown I50.9 - Heart failure, Maicol Curran Active [facility] unspecified / Community I50.9(ICD-10) Hospital Repository Active Chronic kidney NA Active [facility] disease, stage 3 Clinic Main (moderate) / [place] N18.3(ICD-10) Repository Active Unspecified diastolic NA Active [facility] (congestive) heart Clinic Main failure / [place] I50.30(ICD-10) Repository Active Chronic atrial NA Active [facility] fibrillation / Clinic Main I48.2(ICD-10) [place] Repository Active Hypothyroidism, NA Active [facility] unspecified / Clinic Main E03.9(ICD-10) [place] Repository Active Polyneuropathy, NA Active [facility] unspecified / Clinic Main G62.9(ICD-10) [place] Repository Unknown I48.2 - Chronic atrial [place], Active [facility] fibrillation / [facility] I48.2(ICD-10) Hospital Repository Unknown R94.31 - Abnormal [place], Active [facility] 8 electrocardiogram [facility] [ECG] [EKG] / Hospital R94.31(ICD-10) Repository Unknown I13.0 - Hypertensive [place], Active [facility] heart and chronic [facility] kidney disease with Hospital heart failure and Repository stage 1 through stage 4 chronic kidney disease, or unspecified chronic kidney disease / I13.0(ICD-10) Unknown 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, 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 / I25.10(ICD-10) Unknown R53.81 - Other malaise Kee, Brody Chi Active [facility] / R53.81(ICD-10) [facility] Repository Unknown R13.12 - Dysphagia, Kee, Brody Chi Active [facility] oropharyngeal phase / Community R13.12(ICD-10) Hospital Repository Unknown L97.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 - Non-pressure Kee, Brody Chi Active [facility] chronic ulcer of Community unspecified part of Hospital left lower leg with Repository unspecified severity / L97.929(ICD-10) Active Hyperkalemia / [place], Active [facility] E87.5(ICD-10) [facility] Clinic Other [place] Repository Active Cellulitis of left KAILASAM, Active [facility] lower limb / [facility] Clinic Other L03.116(ICD-10) [place] Repository Active Cellulitis of right KAILASAM, Active [facility] lower limb / [facility] Clinic Other L03.115(ICD-10) [place] Repository Active Unspecified open KAILASAM, Active [facility] wound, right lower [facility] Clinic Other leg, initial encounter [place] / S81.801A(ICD-10) Repository Active Other specified health [facility], [facility] status / Z78.9(ICD-10) [facility] Clinic Other [place] Repository Active Other specified KAILASAM, Active [facility] abnormal findings of [facility] Other blood chemistry / [place] R79.89(ICD-10) Repository Active Abnormal findings on KAILASA, Active [facility] diagnostic imaging of [facility] Other other specified body [place] structures / Repository R93.8(ICD-10) Active Encounter for Karey LEE 8 therapeutic drug level [facility]) Clinic Other monitoring / [place] Z51.81(ICD-10) Repository Active [facility]P (current) Karey LEE 8 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 M[facility] STEVENSON) Clinic Other / Z79.01(ICD-10) [place] Repository Active Non-pressure chronic AHMED, 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[facility] ulcer of unspecified Clinic Other part of right lower [place] leg with fat layer Repository exposed / L97.912(ICD-10) Active Other injury of AHMED, 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[facility] unspecified body Clinic Other region, initial [place] encounter / Repository T14.8XXA(ICD-10) Active Local infection of the LIZA BARRY Active [place] 8 skin and subcutaneous Clinic Other tissue, unspecified / [place] L08.9(ICD-10) Repository Active Acute kidney failure, LIZA BARRY Active [place] [facility] unspecified / Clinic Other N17.9(ICD-10) [place] Repository Active Lymphedema, not NA Active [place] [facility] elsewhere classified / Clinic Main I89.0(ICD-10) [place] Repository Active Chronic diastolic ASHWINI, Active [place] 8 (congestive) heart [place] [facility] Clinic Other failure / [place] I50.32(ICD-10) Repository Active Varicose veins of LUIS SIMONS Active [place] 8 right lower extremity J, (LINOTYPER) Clinic Other with ulcer of [place] unspecified site / Repository I83.019(ICD-10) Active Varicose veins of NADER SIMONSCELYN Active [place] 8 right lower extremity J, (LINOTYPER) Clinic Other with other [place] complications / Repository I83.891(ICD-10) Active Non-pressure chronic EHRENNADERLUIS Active [place] 8 ulcer of unspecified J, (LINOTYPER) Clinic Other part of right lower [place] leg with unspecified Repository severity / L97.919(ICD-10) Active Edema, unspecified / EHRNADER HANDLUIS Active [place] 8 R60.9(ICD-10) J, (LINOTYPER) Clinic Other [place] Repository Active Type 2 diabetes NA Active [place] 8 mellitus with Clinic Other hyperosmolarity [place] without nonketotic Repository hyperglycemic-hyperosm olar coma ([facility]) / E11.00(ICD-10) Active Atherosclerotic heart ASHWINI Active [place] 8 disease [facility] [place] Other coronary artery [place] without angina Repository pectoris / I25.10(ICD-10) Active Chronic systolic ASHWINI, Active [facility] (congestive) heart [place] [facility] Clinic Other failure / [place] I50.22(ICD-10) Repository Admitting Unknown / UNK(Unknown) ASHWINI Active [facility] 8 diagnosis [facility] Repository Active Heart failure, THUESTAD, KENYA Active [place] 8 unspecified / A (MD) Clinic Other I50.9(ICD-10) [place] Repository Active Acute on chronic THUESTAD, KENYA Active [place] 8 diastolic (congestive) A () Clinic Other heart failure / [place] I50.33(ICD-10) Repository Active Essential (primary) THUESTAD, KENYA Active [place] 8 hypertension / A () Clinic Other I10(ICD-10) [place] Repository Active Unknown / UNK(Unknown) LUIS SIMONS Active [place] 8 J, (LINOTYPER) Clinic Other [place] Repository PROCEDURES PROCEDURES No Procedure Records FoundRESULTS RESULTS PROGRESS Observed: 11/16/2018 Status: COMPLETED Source: [place] 9:08 AM [facility] REPOSITORY HNO ID: [id number] Author: Maritza Howe Service: (none) Author Type: Registered Nurse Type: Progress Notes Filed: 11/16/2018 9:09 AM Note Text: PRIMARY CARE COORDINATION QUICK NOTE Provider Action/FYI Pt at the [place] on 11/10/18 Patient identified by name and date . Pt at the [facility] Observed: 11/16/2018 Status: COMPLETED Source: [place] 12:00 AM [facility] REPOSITORY Patient Outreach ([facility]) ROSA BELTRAN ([id number]) 1935 F Date Time Provider Department 11/16/18 MARITZA RUSSELL During your visit today, we recorded the following information about you: Maritza Tian RN 11/16/2018 9:09 AM Signed PRIMARY CARE COORDINATION QUICK NOTE Provider Action/FYI Pt at the [place] on 11/10/18 Patient identified by name and date . Pt at the [place] Allergies As of Date: 11/16/2018 (No Known [...] Anemia [D64.9] INVALID FOR* Encounter Status:Closed by MARTIZA HOWE on 11/16/18 PROGRESS Observed: 11/15/2018 Status: COMPLETED Source: [place] 9:50 AM [facility] REPOSITORY HNO ID: [id number] Author: Volodymyr Gilbert Service: (none) Author Type: Patent Chemist Type: Progress Notes Filed: 11/15/2018 9:50 AM Note Text: I called Emilee at [facility] and she informed me that Harts on 11/10/2018. Someone changed her PCP the day prior to her passing away. PROGRESS Observed: 11/15/2018 Status: COMPLETED Source: [place] 9:45 AM [facility] REPOSITORY HNO ID: [id number] Author: Volodymyr Gilbert Service: (none) Author Type: Patent Chemist Type: Progress Notes Filed: 11/15/2018 9:51 AM Note Text: Rosa 11/10/18. CNPTOUTREACH Observed: 11/15/2018 Status: COMPLETED Source: [place] 12:00 AM [facility] REPOSITORY Patient Outreach (INTMWS) ROSA BELTRAN ([id number]) 1935 F Date Time Provider Department 11/15/18 VOLODYMYR GILBERT ([facility]) INTMWS During your visit today, we recorded [...] 11/15/18 PROGRESS Observed: 11/08/2018 Status: COMPLETED Source: [place] 9:00 AM [facility] REPOSITORY HNO ID: [id number] Author: Volodymyr Gilbert Service: (none) Author Type: Patent Chemist Type: Progress Notes Filed: 11/08/2018 9:02 AM Note Text: Spoke with Emilee at [facility]. 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 I will call back x 1 week for another update. DISCHARGE SUMMARY Observed: 11/07/2018 Status: F Source: [place] 2:31 PM [facility] REPOSITORY [facility] Medical Records Department [address] [place] [address] Discharge Summary 11/07/18 1025 MR#: [id number] Acct: [id number] Name: ROSA BELTRAN Rep #: [id number] : 1935 82 From: Yadi Doshi MD PCP: Maicol Curran MD Status: DIS IN Y Location: [place] [address] Discharge Date and Diagnosis Date of Admission: [...] Service support , Consultations 11/03/18 13:59 Consult: Onc/Wound/brake rider Routine Comment: Reason for Consult:: wound to R leg ID- Dr Flor Operations: None Procedures: None Summary of Care Provided: The patient is a 82 year old F with an extensive PMH as listed below; she was [facility] from a penitentiary after she was noted to be short [...] unit PO QWEEK 10/01/18 Hydrocodone Bitart/Apap 5-325 [[place] 5/325] 1 tablet PO Q8H PRN PRN [...] Primary Care Physician in: one week Disposition: Half-Way facility Minutes spent on discharge:: 40 Patient Condition:: Stable Medical Necessity - Tobacco Use Smoking Status: Unknown if ever smoked Meaningful Use Info Meaningful Use Diagnoses (Choose all that apply): None applicable, CHF - CHF ANKIT/ARB ordered at discharge?: No Reason ANKIT/ARB not ordered?: Worsening renal dysfunctn Documented LVEF (%): 65 Code Visit Inpatient E AND M: 55732 Disch Hosp 11/07/18 1431 <Electronically signed by Yadi Doshi MD> Date Yadi Doshi MD Cosigner Signature (if applicable): Date CC: Yadi Doshi MD; Maicol Curran MD; Mani Newman MD Signed TRANSFER TO [facility] Observed: 11/07/2018 Status: F Source: [facility] 10:25 AM [facility] REPOSIT[facility] Medical Records Department [address] [place] [address] [facility] Care MR#: [id number] Acct: [id number] Name: ROSA BELTRAN Giselle Rep #: [id number] : 1935 82 From: Yadi Doshi MD PCP: Maicol Curran MD Status: ADM IN DEVINROSA NAZARIO (Patient) (Health Ins. Claim No.) (Day of Discharge to Facility) Certification of patient admission REQUIRED AT TIME OF ADMISSION. I CERTIFY THAT POST-HOSPITAL ECF SERVICES ARE REQUIRED TO BE GIVEN ON AN IN-PATIENT BASIS BECAUSE OF THE ABOVE NAMED PATIENT'S NEED FOR PENITENTIARY CARE ON A CONTINUING BASIS FOR THE CONDITION(S) FOR WHICH HE/SHE WAS RECEIVING IN-PATIENT HOSPITAL SERVICES PRIOR TO HIS/HER TRANSFER TO THE [facility]. 11/07/18 1023 <Electronically signed by Yadi Doshi MD> Date Yadi Doshi MD ADDENDUM by Yadi Doshi MD on 11/07/18 at 1025 Code Visit Patient discharged to [facility]-Way Facility- [facility] 11/07/18 1025 <Electronically signed [...] LEAD ELECTROCARDIOGRAM Observed: 11/07/2018 Status: F Source: [place] 8:46 AM [facility] REPOSITORY [facility] Cardiovascular Services [address] [place] [address] 12 Lead EKG 11/03/18 1048 MR#: [id number] Acct: [id number] Name: ROSA BELTRAN Rep #: [id number] : 1935 82 From: Basil Fermin MD Attending Dr: Yadi Doshi MD Status: ADM IN Ordering Dr: Jay Nicholas MD Date: 11/03/18 Location: [facility] Sex: F N Admitted: 11/03/18 Test Reason [...] ECG Confirmed by BASIL FERMIN MD ([id number]), associate entertainment editor LAURA BUENROSTRO ([id number]) on 11/07/2018 8:46:23 AM Referred By: Yadi Doshi Confirmed By:BASIL FERMIN MD 11/07/18 0846 Date Basil Fermin MD CC: Jay Nicholas MD; Yadi Doshi MD; Maicol Curran MD; Mani Newman MD Signed CBC W/DIFF, AUTOMATED Collected: 11/07/2018 Status: F Source: [place] 5:30 AM [facility] REPOSIT[facility] TYPE CODE TESTS RESULT OUT OF [...] Lymph 2.10 Performed By: #### L100.0100 #### [facility] [address] [place], [address] BASIC METABOLIC Collected: 11/07/2018 Status: F Source: [place] PROFILE (BMP) 5:30 AM [facility] REPOSIT[facility] TYPE CODE TESTS RESULT OUT OF [...] GAP 6 Performed By: #### L500.2500 #### [facility] [address] [facility] [place], [address] CONSULTATION Observed: 11/06/2018 Status: F Source: [place] 1:12 PM [facility] REPOSIT[facility] Medical Records Department [address] [place] [address] Consultation 11/06/18 1307 MR#: [id number] Acct: [id number] Name: ROSA BELTRAN Rep #: [id number] : 1935 82 From: Carla Flor MD PCP: Maicol Curran MD Status: ADM IN Y Location: [place] [address] Problem List (1) Pneumonia Status: Acute Reason [...] 11/06/2018 Status: F Source: [place] 5:30 AM [facility] REPOSIT[facility] TYPE CODE TESTS RESULT OUT OF [...] Lymph 2.32 Performed By: #### L100.0100 #### [facility] [address] [facility]. [place], [place], [id number] BASIC METABOLIC Collected: 11/06/2018 Status: F Source: [place] PROFILE (BMP) 5:15 AM [facility] REPOSIT[facility] TYPE CODE TESTS RESULT OUT OF [...] GAP 7 Performed By: #### L500.2500 #### [facility] [address] [place], [address] VANCOMYCIN, RANDOM Collected: 11/06/2018 Status: F Source: [place] LEVEL 5:15 AM [facility] REPOSITORY TYPE CODE TESTS RESULT OUT OF REFERENCE UNITS RANGE LAB L501.8850 0.0-15.0 ug/mL High VANCO, RANDOM 20.1 Result Comment: VANCOMYCIN STANDARD DRUG THERAPY: CRITICAL VALUE IS > 15.0 mg/L VANCOMYCIN HIGH INTENSITY THERAPY: CRITICAL VALUE IS > 20.0 mg/L PLEASE CONTACT PHARMACY SERVICES (#[id number]) FOR INTERPRETATION OF RESULTS. THIS RESULT DOES NOT REPRESENT A PEAK OR TROUGH LEVEL FOR THIS DRUG. Performed By: #### L501.8850 #### [facility] [address] [facility] [facility] [place], [address] VANCOMYCIN, TROUGH Collected: 11/05/2018 Status: F Source: [place] L[place] 12:30 PM [facility] REPOSITORY Order Comment: Comments: PLEASE DRAW 30MIN [...] (Ventilator/Healtcare Associated) -Sepsis PLEASE CONTACT PHARMACY SERVICES (#[id number]) FOR INTERPRETATION OF RESULTS. Performed By: #### L501.8820 #### [facility] [address] [place], [place], [address] CBC W/DIFF, AUTOMATED Collected: 11/05/2018 Status: F Source: [place] 5:05 AM [facility] REPOSIT[facility] TYPE CODE TESTS RESULT OUT OF [...] Lymph 1.81 Performed By: #### L100.0100 #### [facility] [address] [place], [place], [address] BASIC METABOLIC Collected: 11/05/2018 Status: F Source: [place] PROFILE (BMP) 5:05 AM [facility] REPOSIT[facility] TYPE CODE TESTS RESULT OUT OF [...] GAP 7 Performed By: #### L500.2500 #### [facility] [address] [place], [address] CBC W/DIFF, AUTOMATED Collected: 11/04/2018 Status: F Source: [place] 5:35 AM [facility] REPOSIT[facility] TYPE CODE TESTS RESULT OUT OF [...] Lymph 2.02 Performed By: #### L100.0100 #### [facility] [address] [place], [place], [address] BASIC METABOLIC Collected: 11/04/2018 Status: F Source: [place] PROFILE (BMP) 5:35 AM [facility] REPOSIT[facility] TYPE CODE TESTS RESULT OUT OF [...] GAP 7 Performed By: #### L500.2500 #### [facility] [address] [facility] [place], [address] HISTORY AND PHYSICAL Observed: 11/03/2018 Status: F Source: [place] EXAM 4:57 PM [facility] REPOSITORY [facility] Medical Records Department [address] [place] [address] History and Physical 11/03/18 1228 MR#: [id number] Acct: [id number] Name: ROSA BELTRAN Rep #: [id number] : 1935 82 From: Yadi Doshi MD PCP: Maicol Curran MD Status: ADM IN Y Location: [place] [address] History of Present Illness Date of Admission: 11/03/18 Chief Complaint: hypoxia The patient is a 82 year old F with an extensive PMH as listed below; she was [facility] from a penitentiary after she was noted to be short [...] ORIF. 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 Lives: Assisted Smoking Status: Unknown if ever smoked - [...] to 70s on room air in the penitentiary * denies any cough * admit to [...] DNRCCA Code Visit Inpatient E AND M: 30934 Init Hosp L3 11/03/18 3787 <Electronically signed by Yadi Doshi MD> Date Yadi Doshi MD Cosigner Signature: Date (if applicable) CC: Yadi Doshi MD; Maicol Curran MD; Mani Newman MD Signed Observed: 11/03/2018 Status: F Source: [place] RESPIRATORY PANEL 3:25 PM [facility] MOLECULAR REPOSITORY RP PANEL ADENOVIRUS Not Detected [...] acid amplification Performed By: #### M100.638 #### [facility] [address] [facility] [place], [address] EMERGENCY DEPARTMENT Observed: 11/03/2018 Status: F Source: [place] SUMMARY 12:30 PM [facility] REPOSITORY [facility] Medical Records Department [address] [place] [address] Emergency Department Summary 11/03/18 1228 MR#: [id number] Acct: [id number] Name: ROSA BELTRAN Rep #: [id number] : 1935 82 From: Jay Nicholas MD PCP: Maicol Curran MD Status: REG ER - ER Visit Summary Date of Service: 11/03/18 Chief Complaint: Abnormal labs History of Present Illness: The patient is a 82 F who is being sent from the penitentiary for abnormal labs. History is obtained from [...] tract infection This note was generated with [employer] dictation software. It may contain incorrect words, [...] your Primary Care Provider. Call [facility] ([phone]) or report to the closest Emergency Room. Call 911 if necessary. 11/03/18 1230 <Electronically signed by Jay Nicholas MD> Date Jay Nicholas MD Cosigner Signature (If Indicated): Date CC: Maicol Curran MD; Mani Newman MD URINALYSIS, COMPLETE Collected: 11/03/2018 Status: F Source: [place] 12:00 PM [facility] REPOSITORY Order Comment: Order Date: 11/03/18 How [...] URINE SEEN Performed By: #### L400.0001 #### [facility] [address] [place] [address], [address] Observed: 11/03/2018 Status: F Source: [place] LEGIONELLA ANTIGEN 12:00 PM [facility] URINE REPOSITORY Order Date: 11/03/18 Has pt arrived? Y Specimen Source: URINE, VITALE Legionella, UR Legionella Antigen result interpretation: Negative Presumptive negative for Legionella pneumophila serogroup 1 antigen in urine, suggesting no recent or current infection. Legionella Ag, Urine Negative (See interpretation below) Performed By: #### M300.4500 #### [facility] [address] [place] [address], [address] STREP Observed: 11/03/2018 Status: F Source: [place] PNEUMONIAE ANTIG(UR,CSF) 12:00 PM [facility] REPOSIT[facility] Order Date: 11/03/18 Has pt arrived? [...] interpretation below) Performed By: #### M300.4600 #### [facility] [address] [place], [address] Observed: 11/03/2018 Status: F Source: [place] CULTURE, WOUND 12:00 PM [facility] REPOSITORY Order Date: 11/03/18 Gram Stain Gram [...] 1 S (NF) indicates non-formulary drug at [facility]. Approval by Infectious Disease Specialist required [...] >=320 R (NF) indicates non-formulary drug at [facility]. Approval by Infectious Disease Specialist required before non-formulary drugs may be ordered and/or dispensed. Acinetobacter baumannii: REACTION Cefepime $ 8 S Ceftazidime *NF 4 R Ceftriaxone $ 32 I Ciprofloxacin $ >=4 R Gentamicin $ 4 S Imipenem *NF >=16 R Levofloxacin $ >=8 R Tobramycin $ 4 S Trimethoprim/Sulfametho $ >=320 R (NF) indicates non-formulary drug at [facility]. Approval by Infectious Disease Specialist required before non-formulary drugs may be ordered and/or dispensed. Performed By: #### M100.1400 #### [facility] [address] [facility] [place], [place], [address] Observed: 11/03/2018 Status: F Source: [place] CULTURE, URINE 12:00 PM [facility] REPOSITORY Order Date: 11/03/18 Urine Culture ORGANISM 1: Citrobacter youngae [place] Count 50,000-80,000 Citrobacter youngae: REACTION Amoxacillin/Clavulanic Acid $ >=32 R Cefazolin $ >=64 R Cefepime $ <=1 S Ceftriaxone $ >=64 R Ciprofloxacin $ <=0.25 S Ertapenim $$$ <=0.5 S Gentamicin $ <=1 S Imipenem *NF <=0.25 S Levofloxacin $ <=0.12 S Nitrofurantoin $ <=16 S Tobramycin $ <=1 S Trimethoprim/Sulfametho $ <=20 S (NF) indicates non-formulary drug at [facility]. Approval by Infectious Disease Specialist required before non-formulary drugs may be ordered and/or dispensed. Performed By: #### M100.0650 #### [facility] [address] [place], [place], [address] Observed: 11/03/2018 Status: F Source: [place] CULTURE, BLOOD (WB) 10:55 AM [facility] REPOSITORY BC No growth in 5 days. Performed By: #### M200.1000 #### [facility] [address], [address] CHEST 1 VIEW Observed: 11/03/2018 Status: F Source: [place] (PORTABLE) 10:40 AM [facility] REPOSITORY [facility] Imaging [place] [address] Chest 1 View (Portable) MR#: [id number] Acct: [id number] Name: ROSA BELTRAN Rep #: [id number] : 1935 F 82 From: Susan Buenrostro MD PCP: Maicol Curran MD Status: REG ER Study: Chest 1 View (Portable) Date of Exam: 11/03/18 Exam# [id number] Ordering Dr: Jay Nicholas MD STUDY: X-RAY [...] CC: Jay Nicholas MD; Maicol Curran MD Credit Professional: Signed CBC W/DIFF, AUTOMATED Collected: 11/03/2018 Status: F Source: [place] 10:39 AM [facility] REPOSIT[facility] TYPE CODE TESTS RESULT OUT OF [...] - NEUTROPHILIA. Performed By: #### L100.0100 #### [facility] [address] [place], [place], [id number] PROTHROMBIN TIME W/INR Collected: 11/03/2018 Status: F Source: [place] 10:39 AM [facility] REPOSIT[facility] TYPE CODE TESTS RESULT OUT OF RANGE REFERENCE UNITS LAB L300.4150 11.7-14.9 SECONDS High PROTIME 18.7 LAB L300.4200 Normal INR 1.6 Performed By: #### L300.3900, L300.4310 #### [facility] [address] [place], [place], [address] PARTIAL THROMBOPLAST Collected: 11/03/2018 Status: F Source: [place] TIME 10:39 AM [facility] REPOS[facility] TYPE CODE TESTS RESULT OUT OF REFERENCE UNITS RANGE LAB L300.4310 24.1-36.2 Seconds High PTT 43.4 Performed By: #### L300.3900, L300.4310 #### [facility] [address] [place], [place], [address] COMPREHENSIVE METABOLIC Collected: 11/03/2018 Status: F Source: [place] PROFIL 10:39 AM [facility] TYPE CODE TESTS RESULT OUT OF [...] GAP 7 Performed By: #### L500.4050 #### [facility] [address] [facility] [place], [address] LACTIC ACID Collected: 11/03/2018 Status: F Source: [place] 10:39 AM [facility] RE[facility] Order Comment: Yes/No query for Sepsis Lactate Rule Y TYPE CODE TESTS RESULT OUT OF RANGE REFERENCE UNITS LAB L503.6005 0.4-2.0 mmol/L Normal LACTIC ACID 1.5 Performed By: #### L503.6005 #### [facility] [address] [facility] [place], [address] BNP,B-TYPE NATRIURETIC Collected: 11/03/2018 Status: F Source: [place] PEPTIDE 10:39 AM [facility] REPOS[facility] TYPE CODE TESTS RESULT OUT OF RANGE REFERENCE UNITS LAB L503.6620 0-100 pg/mL High B-TYPE 741.5 HERMELINDA PEP Performed By: #### L503.6620 #### [facility] [address] [facility] [place], [address] Observed: 11/03/2018 Status: F Source: [place] CULTURE, BLOOD (WB) 10:39 AM [facility] BC No growth in 5 days. Performed By: #### M200.1000 #### [facility] [address] [facility] [place], [place], [address] CBC W/DIFF, AUTOMATED Collected: 11/03/2018 Status: F Source: [place] 6:30 AM [facility] Order Comment: 113 TYPE CODE TESTS [...] NEUTROPHILIA NOTED. Performed By: #### L100.0100 #### [facility] [address] [place], [address] PROGRESS Observed: 11/01/2018 Status: COMPLETED Source: [place] 9:31 AM [facility] REPOSITORY HNO ID: [id number] Author: Volodymyr Gilbert Service: (none) Author Type: Patent Chemist Type: Progress Notes Filed: 11/01/2018 9:32 AM Note Text: Spoke with Emilee [facility]. States still no discharge plans at this time. TYPE AND SCREEN Collected: 10/30/2018 Status: P Source: [place] 3:20 PM [facility] Order Comment: CMV NEG?* N Give When? 11/01/18 Irradiated? N Leukodepleted? Y Reason for Type AND Screen/Red Cells: ANEMIA TYPE CODE TESTS RESULT OUT OF RANGE REFERENCE UNITS LAB B10.0800 O Normal BLOOD TYPE GEL POSITIVE LAB B100.4000 Normal Antibody NEGATIVE Screen Performed By: #### B101.7450 #### [facility] [address] [place], [address] TYPE AND SCREEN Collected: 10/30/2018 Status: P Source: [place] 3:20 PM [facility] Order Comment: CMV NEG?* N Give When? 11/01/18 Irradiated? N Leukodepleted? Y Reason for Type AND Screen/Red Cells: ANEMIA TYPE CODE TESTS RESULT OUT OF RANGE REFERENCE UNITS LAB B10.0800 O Normal BLOOD TYPE GEL POSITIVE LAB B100.4000 Normal Antibody NEGATIVE Screen Performed By: #### B101.7450 #### [facility] [address] [place], [place], [address] TYPE AND SCREEN Collected: 10/30/2018 Status: F Source: [place] 3:20 PM [facility] Order Comment: CMV NEG?* N Give When? 11/01/18 Irradiated? N Leukodepleted? Y Reason for Type AND Screen/Red Cells: ANEMIA TYPE CODE TESTS RESULT OUT OF RANGE REFERENCE UNITS LAB B10.0800 O Normal BLOOD TYPE GEL POSITIVE LAB B100.4000 Normal Antibody NEGATIVE Screen Performed By: #### B101.7450 #### [facility] [address] [place], [address] RC Collected: 10/30/2018 Status: F Source: [place] 3:20 PM [facility] TYPE CODE TESTS RESULT OUT OF REFERENCE UNITS RANGE LAB U100.0000 [id number] TRANSFUSED PRODUCT: T AND S with Crossmatch, Red Cells COUNT: 2 Performed By: #### U100.0000 #### [facility] - refer to report for specific site CBC-COMPLETE BLOOD CNT Collected: 10/30/2018 Status: F Source: [place] NO DIFF 5:05 AM [facility] Order Comment: 113 TYPE CODE TESTS [...] MPV 9.8 Performed By: #### L100.0500 #### [facility] [address] [place], [place], [address] BASIC METABOLIC Collected: 10/30/2018 Status: F Source: [place] PROFILE (BMP) 5:05 AM [facility] Order Comment: 113 TYPE CODE TESTS [...] GAP 8 Performed By: #### L500.2500 #### [facility] [address] [place], [address] PROGRESS Observed: 10/25/2018 Status: COMPLETED Source: [place] 9:15 AM [facility] REPOSITORY HNO ID: [id number] Author: Volodymyr ([facility]) Harman Service: (none) Author Type: Patent Chemist Type: Progress Notes Filed: 10/25/2018 9:15 AM Note Text: Spoke with Emilee at [facility] and she states no discharge plans in place at this time. BASIC METABOLIC Collected: 10/23/2018 Status: F Source: [place] PROFILE ([facility] 4:55 AM [facility] Order Comment: 113 TYPE CODE TESTS [...] GAP 4 Performed By: #### L500.2500 #### [facility] [address] [place], [place], [address] CBC-COMPLETE BLOOD CNT Collected: 10/23/2018 Status: F Source: [place] NO DIFF 4:55 AM [facility] Order Comment: 113 TYPE CODE TESTS [...] MPV 10.5 Performed By: #### L100.0500 #### [facility] [address] [place], [place], [address] PROGRESS Observed: 10/18/2018 Status: COMPLETED Source: [place] 8:33 AM [facility] REPOSITORY HNO ID: [id number] Author: Volodymyr Gilbert Service: (none) Author Type: Patent Chemist Type: Progress Notes Filed: 10/18/2018 8:34 AM Note Text: I spoke with Emilee at [facility] and she states there are no discharge plans at this time. CBC-COMPLETE BLOOD CNT Collected: 10/16/2018 Status: F Source: [place] NO DIFF 8:20 AM [facility] Order Comment: 113 TYPE CODE TESTS [...] MPV 10.1 Performed By: #### L100.0500 #### [facility] [address] [place], [place], [address] BASIC METABOLIC Collected: 10/16/2018 Status: F Source: [place] PROFILE (BMP) 8:20 AM [facility] Order Comment: 113 TYPE CODE TESTS [...] GAP 6 Performed By: #### L500.2500 #### [facility] [address] [facility] [place], [address] PROGRESS Observed: 10/11/2018 Status: COMPLETED Source: [place] 8:55 AM [facility] REPOSITORY HNO ID: [id number] Author: Volodymyr Aguiar) Harman Service: (none) Author Type: Patent Chemist Type: Progress Notes Filed: 10/11/2018 8:55 AM Note Text: I spoke with Kd @ the [place] and she states there's no discharge plans in place at this time. CBC-COMPLETE BLOOD CNT Collected: 10/10/2018 Status: F Source: [place] NO DIFF 6:35 AM [facility] Order Comment: 113 TYPE CODE TESTS [...] MPV 9.8 Performed By: #### L100.0500 #### [facility] [address] [facility] [place], [address] BNP,B-TYPE NATRIURETIC Collected: 10/10/2018 Status: F Source: [place] PEPTIDE 6:35 AM [facility] Order Comment: 113 TYPE CODE TESTS RESULT OUT OF RANGE REFERENCE UNITS LAB L503.6620 0-100 pg/mL High B-TYPE 328.3 HERMELINDA PEP Performed By: #### L503.6620 #### [facility] [facility] [address] [place], [address] CBC-COMPLETE BLOOD CNT Collected: 10/07/2018 Status: F Source: [place] NO DIFF 7:20 AM [facility] REPOSITORY TYPE CODE TESTS RESULT OUT OF [...] MPV 10.0 Performed By: #### L100.0500 #### [facility] [address], [address] BASIC METABOLIC Collected: 10/07/2018 Status: F Source: [place] PROFILE (BMP) 7:20 AM [facility] REPOSITORY TYPE CODE TESTS RESULT OUT OF [...] GAP 3 Performed By: #### L500.2500 #### [facility] [address] [place], [address] DISCHARGE SUMMARY Observed: 10/05/2018 Status: F Source: [place] 11:04 AM [facility] REPOSITORY [facility] Medical Records Department [address] [place] [address] Discharge Summary 10/05/18 1042 MR#: [id number] Acct: [id number] Name: ROSA BELTRAN Rep #: [id number] : 1935 82 From: Juana PEREZ PCP: Mani Newman MD Status: ADM IN Y Location: [place] [address] ADDENDUM by Fatmata Gutiérrez on 10/05/18 at 1104 Code Visit ATTENDING PHYSICIAN DISCHARGE NOTE: I have seen and examined the patient independently and agree with the assessment, plan, history per [] as noted. Discharge Diagnoses: (1) Acute on Chronic Hypoxic Respiratory Failure secondary to Acute on Chronic Diastolic CHF Exacerbation (2) Acute E. Coli Urinary Tract Infection (3) MRSA, GNR Lactose Slat Basket Maker Helper Machine, Proteus Chronic BL LE Chronic Venous Stasis [...] LE Chronic Venous Stasis Ulcers/Wounds following at [facility] who presented to the [facility] ED on 10/01/18 w/ history of transition from jail facility to ED secondary to dyspnea, lethargy, [...] Pseudomonas species, Proteus species, Gram-negative yousif lactose journeyman mechanic, ID consulted and felt chronic wounds only [...] hospital summary above. Inpatient E AND M: [id number] Disch Hosp 10/05/18 1104 <Electronically signed by [...] venous stasis wounds/ulcerations with MRSA, GNR lactose journeyman mechanic, Proteus - Secondary Discharge Diagnosis Chronic Problems [...] Henry Browne MD at 15:13 EST Tel [phone], Service support , Consultations 10/01/18 17:15 Consult: Onc/Wound/brake rider Routine Comment: Reason for Consult:: RLE wound [...] venous stasis wounds/ulcerations with MRSA, GNR lactose journeyman mechanic, Proteus-patient seen by ID. Wounds do not [...] unit PO QWEEK 10/01/18 Hydrocodone Bitart/Apap 5-325 [[place] 5/325] 1 tablet PO Q8H PRN PRN [...] With: Abdiel Arevalo MD - May see SALESFORCE BUSINESS ANALYST/PA When: 1-2 Weeks Disposition: Half-Way facility Minutes spent on discharge:: 35 Patient Condition:: Stable Medical Necessity - Tobacco Use Smoking Status: Unknown if ever smoked Meaningful Use Info Meaningful Use Diagnoses (Choose all that apply): CHF - CHF ANKIT/ARB ordered at discharge?: Yes Reason ANKIT/ARB not ordered?: Worsening renal dysfunctn Documented LVEF (%): 65 10/05/18 1056 <Electronically signed by uJana PEREZ> Date Juana MAJANOC 10/05/18 1103<Electronically signed by Fatmata Gutiérrez > Cosigner Signature (if applicable): Date Fatmata Gutiérrez CC: SALESFORCE BUSINESS ANALYSTUmm Velazquez; Fatmata Gutiérrez; Mani Newman MD Signed TRANSFER TO [facility] Observed: 10/05/2018 Status: F Source: [facility] 10:40 AM [facility] REPOSITORY [facility] Medical Records Department [address] [place] [address] Transfer to [facility] MR#: [id number] Acct: [id number] Name: DEVINROSA L Rep #: [id number] : 1935 82 From: Juana PEREZ PCP: Mani Newman MD Status: ADM IN DEVINROSA (Patient) (Health Ins. Claim No.) (Day of Discharge to Facility) Certification of patient admission REQUIRED AT TIME OF ADMISSION. I CERTIFY THAT POST-HOSPITAL ECF SERVICES ARE REQUIRED TO BE GIVEN ON AN IN-PATIENT BASIS BECAUSE OF THE ABOVE NAMED PATIENT'S NEED FOR PENITENTIARY CARE ON A CONTINUING BASIS FOR THE [...] with 1500 ml FR. Consider consult to PLANT ASSOCIATE re: pt reports difficulty swallowing at times. - Follow Up Care Primary Care Physician: Mani Newman MD [Primary Care Provider] - Please follow up with your Primary Care Physician in: 3-5 Days Please Follow Up With: [facility] When: 1 Week Please Follow Up With: Abdiel Arevalo MD - May see SALESFORCE BUSINESS ANALYST/PA When: 1-2 Weeks 10/05/18 1040 <Electronically signed by Juana Velazquez SALESFORCE BUSINESS ANALYST-C> Date Juana Velazquez SALESFORCE BUSINESS ANALYST-C 10/05/18 1040<Electronically signed by Fatmata Gutiérrez > Cosigner Signature: Date Fatmata Gutiérrez CC: Abdiel Arevalo MD; Jamar Hernandez M.D.; Mani Newman MD HH, HEMOGLOBIN AND Collected: 10/05/2018 Status: F Source: [place] HEMATOCRIT 5:40 AM [facility] REPOSITORY TYPE CODE TESTS RESULT OUT OF RANGE REFERENCE UNITS LAB L100.1300 12.0-15.0 g/dl Low HGB 10.0 LAB L100.1400 37-47 % Low HCT 33.5 Performed By: #### L100.0600 #### [facility] [address] [place], [address] BASIC METABOLIC Collected: 10/05/2018 Status: F Source: [place] PROFILE (BMP) 5:40 AM [facility] REPOSITORY TYPE CODE TESTS RESULT OUT OF [...] GAP 4 Performed By: #### L500.2500 #### [facility] [address] [place], [address] TYPE AND SCREEN Collected: 10/04/2018 Status: F Source: [place] 5:02 PM [facility] REPOSITORY Order Comment: RESULTS CALLED TO [facility] 10/04/18 2000 Cruz Bray. REPORT READ BACK [...] NEGATIVE Screen Performed By: #### B101.7450 #### [facility] [address] [place], [address] Collected: 10/04/2018 Status: F Source: [place] 5:02 PM [facility] REPOSITORY TYPE CODE TESTS RESULT OUT OF REFERENCE UNITS RANGE LAB U100.0000 [id number] TRANSFUSED PRODUCT: T AND S with Crossmatch, Red Cells COUNT: 1 Performed By: #### U100.0000 #### [facility] - refer to report for specific site CONSULTATION Observed: 10/04/2018 Status: F Source: [place] 3:58 PM [facility] REPOSITORY [facility] Medical Records Department [address] [place] [address] Consultation 10/04/18 1550 MR#: [id number] Acct: [id number] Name: ROSA BELTRAN Rep #: [id number] : 1935 82 From: Abdiel Arevalo MD PCP: Mani Newman MD Status: ADM IN Location: [place] [address] Problem List (1) Coronary artery disease Status: [...] an assisted living center, has a primary electric motor rebuilder whose name she cannot recall and [facility], with a long history of coronary artery disease status post stenting approximately 5 years ago at [facility], chronic atrial fibrillation for greater than 5 years on chronic Coumadin therapy and recently switched to Eliquis. In addition she has a history of morbid obesity, diabetes, anasarca, and lower extremity ulcers on her right leg which recently underwent skin grafting. While at the [facility] [place] she was found on the toilet to be cyanotic and unresponsive. She was brought to [facility] ER where she was given oxygen [...] ORIF. 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 - *Family History Maternal History Items: [...] side. Recommend obtaining records from her primary electric motor rebuilder at [facility]. Would not recommend stress testing [...] PM. Code Visit Inpatient E AND M: [id number] Init Hosp L2 10/04/18 1558 <Electronically signed by Abdiel Arevalo MD> Date Abdiel Arevalo MD Cosigner Signature (if applicable): Date CC: Abdiel Arevalo MD; Jamar Hernandez M.D.; Mani Newman MD Signed CONSULTATION Observed: 10/04/2018 Status: F Source: [place] 9:24 AM [facility] REPOSITORY [facility] Medical Records Department [address] [place] [address] Consultation 10/04/1820 MR#: [id number] Acct: [id number] Name: ROSA BELTRAN Rep #: [id number] : 1935 82 From: Jamar Hernandez MD PCP: Mani Newman MD Status: ADM IN Y Location: [place] [address] Reason for Consult: Cystitis and chronic right [...] AND LATERAL Observed: 10/04/2018 Status: F Source: [place] 9:24 AM [facility] REPOSITORY [facility] Imaging Services [address] [place] [address] Chest PA and Lateral MR#: [id number] Acct: [id number] Name: ROSA BELTRAN Rep #: [id number] : 1935 F 82 From: Henry Browne MD PCP: Mani Newman MD Status: ADM IN Study: Chest PA and Lateral Date of Exam: 10/04/18 Exam# [id number] Ordering Dr: Fatmata Gutiérrez STUDY: X-RAY CHEST [...] Henry Browne MD at 15:13 EST Tel [phone], Service support , CC: Fatmata Gutiérrez; Mani Newman MD Credit Professional: Signed PROGRESS Observed: 10/04/2018 Status: COMPLETED Source: [place] 8:39 AM [facility] REPOSITORY HNO ID: [id number] Author: Volodymyr Gilbert Cma Service: (none) Author Type: (none) Type: Progress Notes Filed: 10/04/2018 8:41 AM Note Text: No discharge plans at this time. HH, HEMOGLOBIN AND Collected: 10/04/2018 Status: F Source: [place] HEMATOCRIT 6:15 AM [facility] REPOSITORY TYPE CODE TESTS RESULT OUT OF RANGE REFERENCE UNITS LAB L100.1300 12.0-15.0 g/dl Low HGB 8.8 LAB L100.1400 37-47 % Low HCT 30.4 Performed By: #### L100.0600 #### [facility] [address] [place], [address] BASIC METABOLIC Collected: 10/04/2018 Status: F Source: [place] PROFILE (BMP) 6:15 AM [facility] REPOSITORY TYPE CODE TESTS RESULT OUT OF [...] GAP 4 Performed By: #### L500.2500 #### [facility] [address] [facility] [place], [address] 12 LEAD ELECTROCARDIOGRAM Observed: 10/03/2018 Status: F Source: [place] 3:01 PM [facility] REPOSITORY [facility] Cardiovascular Services [address] [place] [address] 12 Lead EKG 10/01/18 1108 MR#: [id number] Acct: [id number] Name: ROSA BELTRAN Giselle Rep #: [id number] : 1935 82 From: Maicol Hawk MD [...] Abnormal ECG Confirmed by JOSIAH RUIZ, MAICOL ([id number]), associate entertainment editor LAURA BUENROSTRO ([id number]) on 10/03/2018 3:01:07 PM Referred By: DC Confirmed By:MAICOL HAWK MD 10/03/18 1501 Date Maicol Hawk MD CC: Fatmata Gutiérrez; Abdiel Aldrich MD; Mani Newman MD Signed BASIC METABOLIC Collected: 10/03/2018 Status: F Source: [place] PROFILE (BMP) 6:10 AM [facility] REPOSITORY TYPE CODE TESTS RESULT OUT OF [...] GAP 6 Performed By: #### L500.2500 #### [facility] [address], [address] CBC W/DIFF, AUTOMATED Collected: 10/03/2018 Status: F Source: [place] 6:10 AM [facility] REPOSITORY TYPE CODE TESTS RESULT OUT OF [...] Lymph 1.58 Performed By: #### L100.0100 #### [facility] [address], [address] ECHOCARDIOGRAM COMPLETE Observed: 10/02/2018 Status: F Source: [place] 12:07 PM [facility] REPOSITORY [facility] Cardiovascular Services [address] [address] Echo Complete 10/02/18 1022 MR#: [id number] Acct: [id number] Name: ROSA BELTRAN Rep #: [id number] : 1935 82 From: Basil Fermin MD Attending Dr: Fatmata Gutiérrez Status: ADM IN Ordering Dr: Olivia Lees MD Date: 10/01/18 Location: [facility] Sex: F N Admitted: 10/01/18 Reason For [...] Referring Physician: Mani Newman Performed By: Sharlene Doss RDCS, RVT 10/02/18 1206 Date Basil Fermin MD CC: Fatmata Gutiérrez; Olivia Lees; Mani Newman MD Date Dictated: 10/02/18 1022 Date Transcribed: 10/02/18 1206 Credit Professional: Signed MRSA WOUND DNA BY Collected: 10/02/2018 Status: F Source: [place] PCR 11:50 AM [facility] REPOSITORY Order Comment: Specimen Source? LEG TYPE CODE TESTS RESULT OUT OF REFERENCE UNITS RANGE LAB L8200.1100 Negative High MRSA POSITIVE RESULT Result Comment: CALLED TO Samir MEDRANO 10/02/18 1612 BY [facility]. [facility]. LAB L8200.1150 Negative High SA RESULT POSITIVE Performed By: #### L8200.1075 #### [facility] [address], [address] Observed: 10/02/2018 Status: F Source: [place] CULTURE, WOUND 11:50 AM [facility] REPOSITORY Gram Stain Gram Stain 1+ White [...] <=1 S (NF) indicates non-formulary drug at [facility]. Approval by Infectious Disease Specialist required [...] >=320 R (NF) indicates non-formulary drug at [facility]. Approval by Infectious Disease Specialist required [...] <=20 S (NF) indicates non-formulary drug at [facility]. Approval by Infectious Disease Specialist required [...] 1 S (NF) indicates non-formulary drug at [facility]. Approval by Infectious Disease Specialist required before non-formulary drugs may be ordered and/or dispensed. * CLSI guidelines does not recommend testing of cephalosporins. This interpretation is deduced from Beta-lactam/penicillin results. Performed By: #### M100.1400 #### [facility] [address], [address] CBC W/DIFF, AUTOMATED Collected: 10/02/2018 Status: F Source: [place] 6:20 AM [facility] REPOSITORY TYPE CODE TESTS RESULT OUT OF [...] Lymph 2.09 Performed By: #### L100.0100 #### [facility] [address] [place], [address] BASIC METABOLIC Collected: 10/02/2018 Status: F Source: [place] PROFILE (BMP) 6:20 AM [facility] REPOSITORY TYPE CODE TESTS RESULT OUT OF [...] GAP 6 Performed By: #### L500.2500 #### [facility] [address] [facility] [place], [address] EMERGENCY DEPARTMENT Observed: 10/01/2018 Status: F Source: [place] SUMMARY 4:54 PM [facility] REPOSITORY [facility] Medical Records Department [address] [place] [address] Emergency Department Summary 10/01/18 1110 MR#: [id number] Acct: [id number] Name: ROSA BELTRAN Rep #: [id number] : 1935 82 From: Abdiel Aldrich MD [...] for her. She has a history of MO and coronary disease. History of CHF and [...] 3. CHF This note was generated with [employer] software. It may contain incorrect words, spelling, [...] your Primary Care Provider. Call [facility] ([phone]) or report to the closest Emergency Room. Call 911 if necessary. 10/01/18 1654 <Electronically signed by Abdiel Aldrich MD> Date Abdiel Aldrich MD Cosigner Signature (If Indicated): Date CC: Mani Newman MD HISTORY AND PHYSICAL Observed: 10/01/2018 Status: F Source: [place] EXAM 1:20 PM [facility] REPOSITORY [facility] Medical Records Department [address] [place] [address] History and Physical 10/01/18 1305 MR#: [id number] Acct: [id number] Name: ROSA BELTRAN Rep #: [id number] : 1935 82 From: Olivia Lees MD PCP: Mani Newman MD Status: ADM IN Location: [place] [address] Problem List (1) Coronary artery disease Status: [...] comorbidities as mentioned above [facility] because of shortness of breath, lethargy and [...] she has been on oxygen at the penitentiary. She states that she is usually on [...] ORIF. 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 Lives: Assisted Smoking Status: Unknown if [...] 82 years old female patient [facility] because of shortness of breath, lethargy and [...] patient, she is on oxygen at the penitentiary at 2-3 L. At this time, she [...] Continue Eliquis. This note was generated with [employer] dictation software. It may contain incorrect words, spelling, and punctuation that were not noted in checking the note before signing. Code Visit Inpatient E AND M: [id number] Init Hosp L3 10/01/18 1320 <Electronically signed by Olivia Lees MD> Date Olivia Lees MD Cosigner Signature: Date (if applicable) CC: Olivia Lees; Mani Newman MD Signed Observed: 10/01/2018 Status: F Source: [place] CULTURE, URINE 11:50 AM [facility] REPOSITORY Order Date: 10/01/18 Urine Culture ORGANISM 1: Escherichia coli [place] Count >100,000 Escherichia coli: REACTION Amoxacillin/Clavulanic Acid [...] <=20 S (NF) indicates non-formulary drug at [facility]. Approval by Infectious Disease Specialist required before non-formulary drugs may be ordered and/or dispensed. Performed By: #### M100.0650 #### [facility] [address] [place], [place], [address] Observed: 10/01/2018 Status: F Source: [place] CULTURE, BLOOD (WB) 11:45 AM [facility] REPOSITORY BC No growth in 5 days. Performed By: #### M200.1000 #### [facility] [address] [place], [place], [address] Observed: 10/01/2018 Status: F Source: [place] INFLUENZA A+B (RAPID 11:41 AM [facility]) REPOSITORY FLU A/B Rapid Negative test results should be confirmed by culture. Order Rapid Viral Culture for Influenzae A+B (841988) if clinically indicated. Influenza Ag, Direct Presumptive NEGATIVE for Influenza A/B Antigen (See Note) Performed By: #### M101.0101 #### [facility] [address] [place], [place], [address] URINALYSIS, COMPLETE Collected: 10/01/2018 Status: F Source: [place] 11:00 AM [facility] REPOSITORY Order Comment: How was Urine Obtained? [...] URINE SEEN Performed By: #### L400.0001 #### [facility] [address], [address] CHEST 1 VIEW Observed: 10/01/2018 Status: F Source: [place] (PORTABLE) 10:43 AM [facility] REPOSITORY [facility] Imaging Services [address] [place] [address] Chest 1 View (Portable) MR#: [id number] Acct: [id number] Name: Rosa Beltran Rep #: [id number] : 1935 F 82 From: Josh Ge MD PCP: Mani Newman MD Status: PRE ER Study: Chest 1 View (Portable) Date of Exam: 10/01/18 Exam# [id number] Ordering Dr: Abdiel Aldrich MD STUDY: X-RAY [...] CC: Abdiel Aldrich MD; Mani Newman MD Credit Professional: Signed ABDOMEN/PELVIS WITHOUT Observed: 10/01/2018 Status: F Source: [place] CONT 10:43 AM [facility] REPOSITORY [facility] Imaging Services [address] [place] [place] [address] Abdomen/Pelvis without Cont MR#: [id number] Acct: [id number] Name: ROSA BELTRAN Rep #: [id number] : 1935 F 82 From: aJvier Serrano MD PCP: Mani Newman MD Status: REG ER Study: Abdomen/Pelvis without Cont Date of Exam: 10/01/18 Exam# [id number] Ordering Dr: Abdiel Aldrich MD STUDY: CT [...] CC: Abdiel Aldrich MD; Mani Newman MD Credit Professional: Signed CBC W/DIFF, AUTOMATED Collected: 10/01/2018 Status: F Source: [place] 10:40 AM [facility] REPOSITORY TYPE CODE TESTS RESULT OUT OF [...] Lymph 1.12 Performed By: #### L100.0100 #### [facility] [address], [address] PROTHROMBIN TIME W/INR Collected: 10/01/2018 Status: F Source: [place] 10:40 AM [facility] REPOSITORY TYPE CODE TESTS RESULT OUT OF RANGE REFERENCE UNITS LAB L300.4150 11.7-14.9 SECONDS High PROTIME 16.8 LAB L300.4200 Normal INR 1.4 Performed By: #### L300.3900, L300.4310 #### [facility] [address] [place], [address] PARTIAL THROMBOPLAST Collected: 10/01/2018 Status: F Source: [facility] 10:40 AM [facility] REPOSITORY TYPE CODE TESTS RESULT OUT OF REFERENCE UNITS RANGE LAB L300.4310 24.1-36.2 Seconds High PTT 40.0 Performed By: #### L300.3900, L300.4310 #### [facility] [address] [place], [address] COMPREHENSIVE METABOLIC Collected: 10/01/2018 Status: F Source: [place] PROFIL 10:40 AM [facility] REPOSITORY TYPE CODE TESTS RESULT OUT OF [...] Performed By: #### L500.4050, L501.2450, L501.4010 #### [facility] [address] [place], [place], [address] LIPASE Collected: 10/01/2018 Status: F Source: [place] 10:40 AM [facility] REPOSITORY TYPE CODE TESTS RESULT OUT OF REFERENCE UNITS RANGE LAB L501.2450 73-393 U/L Low LIPASE 50 Performed By: #### L500.4050, L501.2450, L501.4010 #### [facility] [address] [place], [place], [address] TROPONIN-I Collected: 10/01/2018 Status: F Source: [place] 10:40 AM [facility] REPOSITORY TYPE CODE TESTS RESULT OUT OF RANGE REFERENCE UNITS LAB L501.4010 <0.045 ng/mL Normal < 0.015 TROPONIN-I Result Comment: TROPONIN-I EXPECTED VALUES <0.045 Negative 0.045 - 0.590 Consistent with Cardiac Damage > OR = 0.600 Critical Value Not every elevated troponin is indicative of MO. These values should be used with clinical judgement in examining the patient's clinical picture for diagnosis. To establish a diagnosis of MO versus myocardial injury, there must be a demonstrated rise and/or fall in the troponin values, in addition to ischemic symptoms, EKG changes, new regional wall motion abnormality, and/or angiographical evidence. PLEASE NOTE: REFERENCE RANGES EDITED 18 Performed By: #### L500.4050, L501.2450, L501.4010 #### [facility] [address] [place], [address] LACTIC ACID Collected: 10/01/2018 Status: F Source: [place] 10:40 AM [facility] REPOSITORY Order Comment: Yes/No query for Sepsis Lactate Rule Y TYPE CODE TESTS RESULT OUT OF RANGE REFERENCE UNITS LAB L503.6005 0.4-2.0 mmol/L Normal LACTIC ACID 1.4 Performed By: #### L503.6005 #### [facility] [address] [place], [address] BNP,B-TYPE NATRIURETIC Collected: 10/01/2018 Status: F Source: [place] PEPTIDE 10:40 AM [facility] REPOSITORY TYPE CODE TESTS RESULT OUT OF RANGE REFERENCE UNITS LAB L503.6620 0-100 pg/mL High B-TYPE 445.0 HERMELINDA PEP Performed By: #### L503.6620 #### [facility] [address] [place], [address] Observed: 10/01/2018 Status: F Source: [place] CULTURE, BLOOD (WB) 10:40 AM [facility] REPOSITORY BC No growth in 5 days. Performed By: #### M200.1000 #### [facility] [address] [place], [address] PROGRESS Observed: 09/27/2018 Status: COMPLETED Source: [place] 8:57 AM [facility] REPOSITORY HNO ID: [id number] Author: Volodymyr Gilbert Cma Service: (none) Author Type: (none) Type: Progress Notes Filed: 09/27/2018 8:58 AM Note Text: Left message for to return call #[phone]. Patient still @ [address] CBC-COMPLETE BLOOD CNT Collected: 09/26/2018 Status: F Source: [place] NO DIFF 5:25 AM [facility] REPOSITORY Order Comment: 113 TYPE CODE TESTS [...] MPV 9.9 Performed By: #### L100.0500 #### [facility] [address] [place], [address] BASIC METABOLIC Collected: 09/26/2018 Status: F Source: [place] PROFILE (BMP) 5:25 AM [facility] REPOSITORY Order Comment: 113 TYPE CODE TESTS [...] GAP 4 Performed By: #### L500.2500 #### [facility] [address] [place], [address] PROGRESS Observed: 09/20/2018 Status: COMPLETED Source: [place] 8:58 AM [facility] REPOSITORY HNO ID: [id number] Author: Volodymyr Gilbert Cma Service: (none) Author Type: (none) Type: Progress Notes Filed: 09/20/2018 8:59 AM Note Text: Left message for SW to return call #[phone] PROGRESS Observed: 09/13/2018 Status: COMPLETED Source: [place] 9:53 AM [facility] REPOSITORY HNO ID: [id number] Author: Volodymyr Gilbert Cma Service: (none) Author Type: (none) Type: Progress Notes Filed: 09/13/2018 9:53 AM Note Text: Left message for SW to return my call for an update. CBC-COMPLETE BLOOD CNT Collected: 09/12/2018 Status: F Source: [place] NO DIFF 6:10 AM [facility] REPOSITORY Order Comment: 113 TYPE CODE TESTS [...] MPV 10.3 Performed By: #### L100.0500 #### [facility] [address] [place], [place], [address] BASIC METABOLIC Collected: 09/12/2018 Status: F Source: [place] PROFILE (BMP) 6:10 AM [facility] REPOSITORY Order Comment: 113 TYPE CODE TESTS [...] GAP 6 Performed By: #### L500.2500 #### [facility] [address] [place], [address] PROGRESS Observed: 09/07/2018 Status: COMPLETED Source: [place] 10:00 AM [facility] REPOSITORY HNO ID: [id number] Author: Volodymyr Gilbert Cma Service: (none) Author Type: (none) Type: Progress Notes Filed: 09/07/2018 10:02 AM Note Text: No discharge plans in place at this time. PROGRESS Observed: 08/30/2018 Status: COMPLETED Source: [place] 9:23 AM [facility] REPOSITORY HNO ID: [id number] Author: Volodymyr Harman Rene Service: (none) Author Type: (none) Type: Progress Notes Filed: 08/30/2018 9:25 AM Note Text: Left message for to return call #[phone] CBC-COMPLETE BLOOD CNT Collected: 08/29/2018 Status: F Source: [place] 5:40 AM [facility] REPOSITORY Order Comment: ROOM 113 TYPE CODE [...] 9.9 Performed By: #### L100.0500, L100.4500 #### [facility] [address] [place], [place], [id number] DIFFERENTIAL COMMENT Collected: 08/29/2018 Status: F Source: [place] 5:40 AM [facility] REPOSITORY Order Comment: ROOM 113 TYPE CODE TESTS RESULT OUT OF RANGE REFERENCE UNITS LAB L100.4500 Normal SMEAR COMMENT SCANNED Result Comment: 1+ HYPOCHROMIA Performed By: #### L100.0500, L100.4500 #### [facility] [address] [place], [place], [id number] COMPREHENSIVE METABOLIC Collected: 08/29/2018 Status: F Source: [place] 5:40 AM [facility] REPOSITORY Order Comment: ROOM 113 TYPE CODE [...] GAP 3 Performed By: #### L500.4050 #### [facility] [place], [address] PROGRESS Observed: 08/24/2018 Status: COMPLETED Source: [place] 9:14 AM [facility] REPOSITORY HNO ID: [id number] Author: Volodymyr Harman [employer] Professional Service: (none) Author Type: (none) Type: Progress Notes Filed: 08/24/2018 9:17 AM Note Text: No discharge plans in place at this time. PROGRESS Observed: 08/16/2018 Status: COMPLETED Source: [place] 9:29 AM [facility] REPOSITORY HNO ID: [id number] Author: Volodymyr Harman [facility]: (none) Author Type: (none) Type: Progress Notes Filed: 08/16/2018 9:30 AM Note Text: I called and spoke with [facility] who states Rosa was transferred to their facility last week. Unable to reach , but they will give her the message and call with any discharge plans/updats. CBC-COMPLETE BLOOD CNT Collected: 08/15/2018 Status: F Source: [place] 5:05 AM [facility] REPOSIT[facility] Order Comment: RM 113 TYPE CODE [...] 10.1 Performed By: #### L100.0500, L100.4500 #### [facility] [place], [address] DIFFERENTIAL COMMENT Collected: 08/15/2018 Status: F Source: [place] [facility] AM [facility] Order Comment: RM 113 TYPE CODE TESTS RESULT OUT OF RANGE REFERENCE UNITS LAB L100.4500 Normal SMEAR COMMENT COMMENT Result Comment: SLIDE SCANNED - 1+ ANISO NOTED. Performed By: #### L100.0500, L100.4500 #### [facility] [address] [place], [address] COMPREHENSIVE METABOLIC Collected: 08/15/2018 Status: F Source: [place] [facility] 5:05 AM [facility] Order Comment: RM 113 TYPE CODE [...] Performed By: #### L500.4050, L500.4100, L501.9520 #### [facility] [address] [place], [address] LIPID PROFILE Collected: 08/15/2018 Status: F Source: [place] 5:05 AM [facility] REPOSIT[facility] Order Comment: RM 113 TYPE CODE [...] Performed By: #### L500.4050, L500.4100, L501.9520 #### [facility] [address] [place], [address] THYROID STIM HORMONE Collected: 08/15/2018 Status: F Source: [place] (TSH) 5:05 AM [facility] REPOSITORY Order Comment: RM 113 TYPE CODE TESTS RESULT OUT OF RANGE REFERENCE UNITS LAB L501.9520 0.358-3.74 uIU/mL Normal TSH 3.06 Performed By: #### L500.4050, L500.4100, L501.9520 #### [facility] [address] [place], [address] VITAMIN D,25 HYDROXY Collected: 08/15/2018 Status: F Source: [place] 5:05 AM [facility] REPOSITORY Order Comment: RM 113 TYPE CODE TESTS RESULT OUT OF RANGE REFERENCE UNITS LAB L506.1000 29.95-100.01 ng/mL Normal Vitamin D 43.2 25-OH Result Comment: Vitamin D 25(OH) Status Range Deficiency <20 ng/mL (50nmol/L) Insuffciency 20 - 30 ng/mL (50 - 75 nmol/L) Sufficiency 30 - 100 ng/mL (75 - 250 nmol/L) Toxicity >100 ng/mL (>250 nmol/L) Performed By: #### L506.1000 #### [facility] [address] [place], [place], [address] PROGRESS Observed: 08/09/2018 Status: COMPLETED Source: [place] 12:09 PM [facility] REPOSITORY HNO ID: [id number] Author: Volodymyr Gilbert Cma Service: (none) Author Type: (none) Type: Progress Notes Filed: 08/09/2018 12:14 PM Note Text: I spoke with KUMAR Velasquez at [facility] who states she's been in contact with Helena at [facility] in [place] and Rosa will potentially be transferring to [facility] today. She will be there for rehab/therapy and wound care and will hopefully will be able to be discharged home at some point. PRALB Collected: 08/09/2018 Status: F Source: [facility] 5:48 AM [facility] RE[facility] TYPE CODE TESTS RESULT OUT OF REFERENCE UNITS RANGE LAB PRALB(LOIN 18.0-38.0 mg/dL C) Low Prealbumin 9.8 Performed By: #### PRALB #### [facility] [address] [place] [address] CNPTOUTREACH Observed: 08/08/2018 Status: COMPLETED Source: [place] 12:00 AM [facility] REPOSITORY Patient Outreach (INTMWH) ROSA BELTRAN ([id number]) 1935 F Date Time Provider Department 08/08/18 MANI NEWMAN [facility] During your visit today, we recorded the following information about you: Allergies As of Date: 08/08/2018 (No Known Allergies) Date Reviewed: 06/27/2018 Reviewed by: Belle Ignacio RN - Fully Assessed Visit Diagnosis:Medication management [Z79.899] Order(s):LIPID PANEL BASIC [SQLIPB] Order #: [id number] FUTURE Prescriptions as of 08/08/2018 Sig: MENTHOL [...] Anemia [D64.9] INVALID FOR* Encounter Status:Closed by Avaak, PRODUSER on 09/08/18 CBC Collected: 08/07/2018 Status: F Source: [place] 5:50 AM [facility] RE[facility]IT[facility] TYPE CODE TESTS [...] #### CBC, ADIFF, ANEU, GFR, BMP #### [address] [address] .AUTO DIFF Collected: 08/07/2018 Status: F Source: [facility] 5:50 AM [facility] REPOSITORY TYPE CODE TESTS RESULT OUT OF [...] #### CBC, ADIFF, ANEU, GFR, BMP #### [address] [address] .NEUABS Collected: 08/07/2018 Status: F Source: [facility] 5:50 AM [facility] REPOSITORY TYPE CODE TESTS RESULT OUT OF REFERENCE UNITS RANGE LAB ANEU(LOINC) 2.25-8.10 10 3/mcL Neutrophil, 4.50 Absolute Performed By: #### CBC, ADIFF, ANEU, GFR, BMP #### [address] [address] .GFR Collected: 08/07/2018 Status: F Source: [facility] 5:50 AM [facility] REPOSITORY TYPE CODE TESTS RESULT OUT OF REFERENCE UNITS RANGE LAB GFRAA(LOINC ml/min/1.73 ) sqm GFR >60 [place] Result Comment: GFR Population mean for , [...] #### GABRIELLE, DORA, ANEU, GFR, BMP #### [address] [address] BMP Collected: 08/07/2018 Status: F Source: [facility] 5:50 AM [facility] REPOSITORY TYPE CODE TESTS RESULT OUT OF [...] #### CBC, ADIFF, ANEU, GFR, BMP #### [place] [address] PROGRESS Observed: 08/04/2018 Status: COMPLETED Source: [place] 10:57 AM [facility] REPOSITORY HNO ID: [id number] Author: Volodymyr Gilbert [facility]: (none) Author Type: (none) Type: Progress Notes Filed: 08/04/2018 11:05 AM Note Text: I called and spoke with KUMAR Velasquez at [facility] ([phone]) who states Rosa is doing well. This [...] health care set up) or look at intermodal customer service care facilities. They may have a decision next week. PROGRESS Observed: 08/03/2018 Status: COMPLETED Source: [place] 2:49 PM [facility] REPOSITORY HNO ID: [id number] Author: Volodymyr Gilbert [facility]: (none) Author Type: (none) Type: Progress Notes Filed: 08/03/2018 2:50 PM Note Text: Left message with Eva [phone] (she will call me back) CBC Collected: 08/03/2018 Status: F Source: [facility] 5:43 AM [facility] REPOSITORY TYPE CODE TESTS RESULT OUT OF [...] #### CBC, BMP, GFR, DIFF, MORPH #### [address] [address] BMP Collected: 08/03/2018 Status: F Source: [facility] 5:43 AM [facility] REPOSITORY TYPE CODE TESTS RESULT OUT OF [...] #### CBC, BMP, GFR, DIFF, MORPH #### [address] [address] .GFR Collected: 08/03/2018 Status: F Source: [facility] 5:43 AM [facility] REPOSITORY TYPE CODE TESTS RESULT OUT OF REFERENCE UNITS RANGE LAB GFRAA(LOINC ml/min/1.73 ) sqm GFR >60 [place] Result Comment: GFR Population mean for , [...] #### CBC, BMP, GFR, DIFF, MORPH #### [place] [address] .MANUAL DIFF Collected: 08/03/2018 Status: F Source: [facility] 5:43 AM [facility] REPOSITORY TYPE CODE TESTS RESULT OUT OF [...] #### CBC, BMP, GFR, DIFF, MORPH #### [address] [address] .MORPH Collected: 08/03/2018 Status: F Source: [facility] 5:43 AM [facility] RE[facility] TYPE CODE TESTS RESULT OUT OF REFERENCE UNITS RANGE LAB PLTE(LOINC ) Platelet Estimate Normal LAB ANIS(LOINC ) Anisocytosis Slight LAB POIK(LOINC ) Poik Slight LAB HYPC(LOINC ) Hypochrom Slight LAB POLC(LOINC ) Polychrom Slight LAB STMT(LOINC ) Stomatocytes Few Performed By: #### CBC, BMP, GFR, DIFF, MORPH #### [address] [address] PROGRESS Observed: 08/02/2018 Status: COMPLETED Source: [place] 8:48 AM [facility] REPOSITORY HNO ID: [id number] Author: Volodymyr Gilbert Cma Service: (none) Author Type: (none) Type: Progress Notes Filed: 08/02/2018 8:51 AM Note Text: I called [facility] the past several weeks and was unable to get a hold of anyone, but Left message for to return call #[phone]. I got a hold of someone today and they said the SW if out of the office at this time, but they took my Name and direct number so they will give her the message and have her give me a call back. CBC Collected: 08/01/2018 Status: F Source: [facility] 5:21 AM [facility] REPOSITORY TYPE CODE TESTS RESULT OUT OF [...] Performed By: #### CBC, DIFF, MORPH #### [place] [address] .MANUAL DIFF Collected: 08/01/2018 Status: F Source: [facility] 5:21 AM [facility] REPOSITORY TYPE CODE TESTS RESULT OUT OF [...] Performed By: #### CBC, DIFF, MORPH #### [address] [address] .MORPH Collected: 08/01/2018 Status: F Source: [facility] 5:21 AM [facility] REPOSITORY TYPE CODE TESTS RESULT OUT OF REFERENCE UNITS RANGE LAB PLTE(LOINC ) Platelet Estimate Decreased LAB ANIS(LOINC ) Anisocytosis Slight LAB POIK(LOINC ) Poik Slight LAB OVAL(LOINC ) Ovalocytes Few Performed By: #### CBC, DIFF, MORPH #### [place] [address] CBC Collected: 07/31/2018 Status: F Source: [facility] 8:11 AM [facility] REPOSITORY TYPE CODE TESTS RESULT OUT OF [...] Performed By: #### CBC, ADIFF, ANEU #### [place] [id number] .AUTO DIFF Collected: 07/31/2018 Status: F Source: [facility] 8:11 AM [facility] REPOSITORY TYPE CODE TESTS RESULT OUT OF [...] Absolute Performed By: #### CBCDORA ANEU #### [place] [address] .NEUABS Collected: 07/31/2018 Status: F Source: [facility] 8:11 AM [facility] REPOSITORY TYPE CODE TESTS RESULT OUT OF REFERENCE UNITS RANGE LAB ANEU(LOINC) 2.25-8.10 10 3/mcL Neutrophil, 2.80 Absolute Performed By: #### CBCDORA ANEU #### [place] [address] CBC Collected: 07/30/2018 Status: F Source: [facility] 5:36 AM [facility] REPOSITORY TYPE CODE TESTS RESULT OUT OF [...] 6.6-10.5 fL MPV 7.6 Performed By: #### CBCDORA, ANEU #### [place] [address] .AUTO DIFF Collected: 07/30/2018 Status: F Source: [facility] 5:36 AM [facility] REPOSITORY TYPE CODE TESTS RESULT OUT OF [...] Performed By: #### DORA ANTHONY, ANEU #### [place] [address] .NEUABS Collected: 07/30/2018 Status: F Source: [facility] 5:36 AM [facility] REPOSITORY TYPE CODE TESTS RESULT OUT OF REFERENCE UNITS RANGE LAB ANEU(LOINC) 2.25-8.10 10 3/mcL Low Neutrophil, 1.40 Absolute Performed By: #### CBC, DORA, ANEU #### [place] [address] RAPTEG Collected: 07/30/2018 Status: F Source: [facility] 5:36 AM [facility] REPOSITORY TYPE CODE TESTS RESULT OUT OF REFERENCE UNITS RANGE LAB RTEGR(LOINC 0.0-1.0 minutes ) R TEG 0.7 Rapid LAB KTEGR(LOINC 1.0-2.0 minutes ) K TEG 1.0 Rapid LAB ATEGR(LOINC 64.0-80.0 degrees ) Angle TEG 78.2 Rapid LAB MATEGR(LOIN 52.0-71.0 mm C) MA TEG 60.2 Rapid LAB [id number](MONI 0.0-8.0 % NC) LY30 0.1 Lysis TEG LAB TEGACT(LOIN 86.0-118.0 second(s) C) TEG ACT 113.0 Performed By: #### RAPTEG #### [address] [address] CBC Collected: 07/29/2018 Status: F Source: [facility] 5:46 AM [facility] REPOSITORY TYPE CODE TESTS RESULT OUT OF [...] Performed By: #### CBC, ADIFF, ANEU #### [address] [address] .AUTO DIFF Collected: 07/29/2018 Status: F Source: [facility] 5:46 AM [facility] REPOSITORY TYPE CODE TESTS RESULT OUT OF [...] Performed By: #### CBC, ADKATHRINE, ANEU #### [place] [address] .NEUABS Collected: 07/29/2018 Status: F Source: [facility] 5:46 AM [facility] REPOSITORY TYPE CODE TESTS RESULT OUT OF REFERENCE UNITS RANGE LAB ANEU(LOINC) 2.25-8.10 10 3/mcL Low Neutrophil, 1.50 Absolute Performed By: #### CBC, ADIFF, ANEU #### [place] [address] CBC Collected: 07/28/2018 Status: F Source: [facility] 5:32 AM [facility] REPOSITORY TYPE CODE TESTS RESULT OUT OF [...] Performed By: #### CBC, ADIFF, ANEU #### [place] [address] .AUTO DIFF Collected: 07/28/2018 Status: F Source: [facility] 5:32 AM [facility] REPOSITORY TYPE CODE TESTS RESULT OUT OF [...] Performed By: #### CBC, ADIFF, ANEU #### [place] [address] .NEUABS Collected: 07/28/2018 Status: F Source: [facility] 5:32 AM [facility] REPOSITORY TYPE CODE TESTS RESULT OUT OF REFERENCE UNITS RANGE LAB ANEU(LOINC) 2.25-8.10 10 3/mcL Low Neutrophil, 1.70 Absolute Performed By: #### CBC, ADIFF, ANEU #### [place] [address] TABO Collected: 07/27/2018 Status: F Source: [facility] 12:20 PM [facility] REPOSITORY TYPE CODE TESTS RESULT OUT OF RANGE REFERENCE UNITS LAB ABORH(LOINC ) Unknown ABO/Rh O POS Interp Performed By: #### ABORH, ANTIS #### [place] [address] TABS Collected: 07/27/2018 Status: F Source: [facility] 12:20 PM [facility] REPOSITORY TYPE CODE TESTS RESULT OUT OF REFERENCE UNITS RANGE LAB ANST(LOINC ) Antibody Negative ABSC Screen Tango Performed By: #### ABORH, ANTIS #### [place] [address] RBC (PRODUCT) Collected: 07/27/2018 Status: F Source: [facility] 10:47 AM [facility] REPOSITORY TYPE CODE TESTS RESULT OUT OF REFERENCE UNITS RANGE LAB RBCPR(LOINC ) RBC Product RBC Ready Ready for Pickup Performed By: #### RBCP #### [place] [address] HFP Collected: 07/27/2018 Status: F Source: [facility] 5:24 AM [facility] REPOSITORY TYPE CODE TESTS RESULT OUT OF [...] ALT/SGPT 9 Performed By: #### HFP #### [place] [address] PROGRESS Observed: 07/26/2018 Status: COMPLETED Source: [place] 8:50 AM [facility] REPOSITORY HNO ID: [id number] Author: Volodymyr Gilbert Cma Service: (none) Author Type: (none) Type: Progress Notes Filed: 07/26/2018 8:54 AM Note Text: Left message for at [facility] to call me back. CBC Collected: 07/26/2018 Status: F Source: [facility] 6:23 AM [facility] REPOSITORY TYPE CODE TESTS RESULT OUT OF [...] Performed By: #### CBC, DORA, ANEU #### [address] [address] .AUTO DIFF Collected: 07/26/2018 Status: F Source: [facility] 6:23 AM [facility] REPOSITORY TYPE CODE TESTS RESULT OUT OF [...] Performed By: #### CBC, ADKATHRINE, ANEU #### [address] [address] .NEUABS Collected: 07/26/2018 Status: F Source: [facility] 6:23 AM [facility] REPOSITORY TYPE CODE TESTS RESULT OUT OF REFERENCE UNITS RANGE LAB ANEU(LOINC) 2.25-8.10 10 3/mcL Low Neutrophil, 2.20 Absolute Performed By: #### CBC, ADIFF, ANEU #### [place] [address] CBC Collected: 07/25/2018 Status: F Source: [facility] 6:40 AM [facility] REPOSITORY TYPE CODE TESTS RESULT OUT OF [...] #### CBC, ADIFF, ANEU, BMP, GFR #### [place] [address] .AUTO DIFF Collected: 07/25/2018 Status: F Source: [facility] 6:40 AM [facility] REPOSITORY TYPE CODE TESTS RESULT OUT OF [...] #### CBC, ADIFF, ANEU, BMP, GFR #### [address] [address] .NEUABS Collected: 07/25/2018 Status: F Source: [facility] 6:40 AM [facility] REPOSITORY TYPE CODE TESTS RESULT OUT OF REFERENCE UNITS RANGE LAB ANEU(LOINC) 2.25-8.10 10 3/mcL Neutrophil, 2.60 Absolute Performed By: #### CBC, ADIFF, ANEU, BMP, GFR #### [place] [address] BMP Collected: 07/25/2018 Status: F Source: [facility] 6:40 AM [facility] REPOSITORY TYPE CODE TESTS RESULT OUT OF [...] #### CBC, ADIFF, ANEU, BMP, GFR #### [address] [address] .GFR Collected: 07/25/2018 Status: F Source: [facility] 6:40 AM [facility] [place] REPOSITORY TYPE CODE TESTS RESULT OUT OF REFERENCE UNITS RANGE LAB GFRAA(LOINC ml/min/1.73 ) sqm GFR >60 [place] Result Comment: GFR Population mean for , [...] #### CBC, ADIFF, ANEU, BMP, GFR #### [place] [address] CAION Collected: 07/24/2018 Status: F Source: [facility] 6:38 AM [facility] [place] REPOSITORY TYPE CODE TESTS RESULT OUT OF REFERENCE UNITS RANGE LAB CAION(LOINC 1.12-1.32 mmol/L ) Calcium 1.12 Ionized Performed By: #### CAION #### [place] [address] BMP Collected: 07/23/2018 Status: F Source: [facility] 5:33 AM [facility] [place] REPOSITORY TYPE CODE TESTS RESULT OUT OF [...] 7.5 Performed By: #### BMP, GFR #### [place] [address] .GFR Collected: 07/23/2018 Status: F Source: [facility] 5:33 AM [facility] REPOSITORY TYPE CODE TESTS RESULT OUT OF REFERENCE UNITS RANGE LAB GFRAA(LOINC ml/min/1.73 ) sqm GFR 57 [place] Result Comment: GFR Population mean for , [...] meters Performed By: #### BMP, GFR #### [address] [address] BMP Collected: 07/22/2018 Status: F Source: [facility] 6:26 AM [facility] [place] REPOSITORY TYPE CODE TESTS RESULT OUT OF [...] 7.6 Performed By: #### BMP, GFR #### [address] [address] .GFR Collected: 07/22/2018 Status: F Source: [place] 6:26 AM [facility] [place] REPOSITORY TYPE CODE TESTS RESULT OUT OF REFERENCE UNITS RANGE LAB GFRAA(LOINC ml/min/1.73 ) sqm GFR 59 [place] Result Comment: GFR Population mean for , [...] meters Performed By: #### BMP, GFR #### [place] [address] IR PICC LINE PLACEMENT Observed: 07/21/2018 Status: F Source: [facility] 1:00 PM [facility] REPOSITORY ORIGINAL PROCEDURE(S): 1. PICC placement with fluoroscopy and ultrasound guidance MILIEU COUNSELOR: Gay Lam PA-C CLINICAL HISTORY: Patient requires [...] PM BMP Collected: 07/21/2018 Status: F Source: [facility] 7:54 AM [facility] [place] REPOSITORY TYPE CODE TESTS RESULT OUT OF [...] 7.7 Performed By: #### BMP, GFR #### [address] [address] .GFR Collected: 07/21/2018 Status: F Source: [facility] 7:54 AM [facility] REPOSITORY TYPE CODE TESTS RESULT OUT OF REFERENCE UNITS RANGE LAB GFRAA(LOINC ml/min/1.73 ) sqm GFR 54 [place] Result Comment: GFR Population mean for , [...] meters Performed By: #### BMP, GFR #### [address] [address] PROGRESS Observed: 07/20/2018 Status: COMPLETED Source: [place] 10:05 AM [facility] REPOSITORY HNO ID: [id number] Author: Kapil (Jose Luis Rose Service: (none) Author Type: Physical Therapist Type: Progress Notes Filed: 07/20/2018 10:07 AM Note Text: The appointment was cancelled for this patient. During a chart review, it was noted that patient has had a change in medical status and was hospitalized. It appears she is now at [facility]. Patient did not show for this appointment and she is unable to attend Out- pt PT for wound care due to hospitalization. Kapil Rose PT CNTHERAPY Observed: 07/20/2018 Status: COMPLETED Source: [place] 9:30 AM [facility] REPOSITORY OT/PT/Speech Visit (PTMDRG) ROSA BELTRAN ([id number]) 1935 F Date Time Provider Department 07/20/18 9:30 AM KAPIL ROSE (PT) PTMDRG Date Time Provider Department [place] 07/20/2018 9:30 AM [id number], KELLY (PT)PTMDRG [facility] Reason for Visit: Appointment Cancelled [...] hospitalized. It appears she is now at [facility]. Patient did not show for this appointment and she is unable to attend Out-pt PT for wound care due to hospitalization. Kapil Rose, PT BMP Collected: 07/20/2018 Status: F Source: [facility] 7:19 AM [facility] REPOSITORY TYPE CODE TESTS RESULT OUT OF [...] 7.6 Performed By: #### BMP, GFR #### [place] [address] .GFR Collected: 07/20/2018 Status: F Source: [facility] 7:19 AM [facility] REPOSITORY TYPE CODE TESTS RESULT OUT OF REFERENCE UNITS RANGE LAB GFRAA(LOINC ml/min/1.73 ) sqm GFR 48 [place] Result Comment: GFR Population mean for , [...] meters Performed By: #### BMP, GFR #### [facility] [address] [place] [address] BMP Collected: 07/19/2018 Status: F Source: [facility] 7:18 AM [facility] REPOSITORY TYPE CODE [...] 7.4 Performed By: #### BMP, GFR #### [address] [address] .GFR Collected: 07/19/2018 Status: F Source: [facility] 7:18 AM [facility] REPOSITORY TYPE CODE TESTS RESULT OUT OF REFERENCE UNITS RANGE LAB GFRAA(LOINC ml/min/1.73 ) sqm GFR 46 [place] Result Comment: GFR Population mean for , [...] meters Performed By: #### BMP, GFR #### [place] [address] BMP Collected: 07/18/2018 Status: F Source: [facility] 6:30 AM [facility] [place] REPOSITORY TYPE CODE TESTS RESULT OUT OF [...] 7.4 Performed By: #### BMP, GFR #### [place] [address] .GFR Collected: 07/18/2018 Status: F Source: [facility] 6:30 AM [facility] [place] REPOSITORY TYPE CODE TESTS RESULT OUT OF REFERENCE UNITS RANGE LAB GFRAA(LOINC ml/min/1.73 ) sqm GFR 41 [place] Result Comment: GFR Population mean for , [...] meters Performed By: #### BMP, GFR #### [address] [address] CBC Collected: 07/17/2018 Status: F Source: [facility] 7:22 [facility] REPOSITORY TYPE CODE TESTS RESULT OUT OF [...] #### CBC, BMP, GFR, DIFF, MORPH #### [address] [address] BMP Collected: 07/17/2018 Status: F Source: [facility] 7:22 [facility] REPOSITORY TYPE CODE TESTS RESULT OUT OF [...] #### CBC, BMP, GFR, DIFF, MORPH #### [place] [id number] [place] [address] .GFR Collected: 07/17/2018 Status: F Source: [facility] 7:22 AM [facility] REPOSITORY TYPE CODE TESTS RESULT OUT OF REFERENCE UNITS RANGE LAB GFRAA(LOINC ml/min/1.73 ) sqm GFR 39 [place] Result Comment: GFR Population mean for , [...] #### CBC, BMP, GFR, DIFF, MORPH #### [address] [address] .MANUAL DIFF Collected: 07/17/2018 Status: F Source: [facility] 7:22 AM [facility] [place] REPOSITORY TYPE CODE TESTS RESULT OUT OF [...] #### CBC, BMP, GFR, DIFF, MORPH #### [address] [address] .MORPH Collected: 07/17/2018 Status: F Source: [facility] 7:22 AM [facility] [place] REPOSITORY TYPE CODE TESTS RESULT OUT OF REFERENCE UNITS RANGE LAB PLTE(LOINC ) Platelet Estimate Normal LAB ANIS(LOINC ) Anisocytosis Slight Performed By: #### CBC, BMP, GFR, DIFF, MORPH #### [place] [id number] CBC Collected: 07/16/2018 Status: F Source: [facility] 6:12 AM [facility] [place] REPOSITORY TYPE CODE TESTS RESULT OUT OF [...] #### CBC, ADIFF, ANEU, BMP, GFR #### [place] [address] .AUTO DIFF Collected: 07/16/2018 Status: F Source: [facility] 6:12 AM [facility] [place] REPOSITORY TYPE CODE TESTS RESULT OUT OF [...] #### CBC, ADIFF, ANEU, BMP, GFR #### [address] [address] .NEUABS Collected: 07/16/2018 Status: F Source: [facility] 6:12 AM [facility] [place] REPOSITORY TYPE CODE TESTS RESULT OUT OF REFERENCE UNITS RANGE LAB ANEU(LOINC) 2.25-8.10 10 3/mcL High Neutrophil, 8.40 Absolute Performed By: #### CBC, ADIFF, ANEU, BMP, GFR #### [place] [id number] BMP Collected: 07/16/2018 Status: F Source: [facility] 6:12 AM [facility] [place] REPOSITORY TYPE CODE TESTS RESULT OUT OF [...] #### CBC, ADIFF, ANEU, BMP, GFR #### [address] [address] .GFR Collected: 07/16/2018 Status: F Source: [facility] 6:12 AM [facility] [place] REPOSITORY TYPE CODE TESTS RESULT OUT OF REFERENCE UNITS RANGE LAB GFRAA(LOINC ml/min/1.73 ) sqm GFR 52 [place] Result Comment: GFR Population mean for , [...] #### CBC, ADIFF, ANEU, BMP, GFR #### [address] [address] TROPI Collected: 07/15/2018 Status: F Source: [facility] 10:39 PM [facility] REPOSITORY TYPE CODE [...] ECG changes may help assess possibility of MO. *Other non-acute coronary syndrome conditions such as CHF, myocarditis, pulmonary emboli, sepsis and cardiac surgery could result in myocardial damage and increased troponin levels. Performed By: #### TROPI #### [address] [address] TROPI Collected: 07/15/2018 Status: F Source: [facility] 10:27 AM [facility] [place] REPOSITORY TYPE CODE TESTS RESULT OUT OF [...] ECG changes may help assess possibility of MO. *Other non-acute coronary syndrome conditions such as CHF, myocarditis, pulmonary emboli, sepsis and cardiac surgery could result in myocardial damage and increased troponin levels. Performed By: #### TROPI #### [place] [address] CBC Collected: 07/13/2018 Status: F Source: [facility] 6:02 AM [facility] [place] REPOSITORY TYPE CODE TESTS RESULT OUT OF [...] #### CBC, ADIFF, ANEU, BMP, GFR #### [place] [address] .AUTO DIFF Collected: 07/13/2018 Status: F Source: [facility] 6:02 [facility] REPOSITORY TYPE CODE TESTS RESULT OUT OF [...] #### CBC, ADIFF, ANEU, BMP, GFR #### [place] [address] .NEUABS Collected: 07/13/2018 Status: F Source: [facility] 6:02 [facility] REPOSITORY TYPE CODE TESTS RESULT OUT OF REFERENCE UNITS RANGE LAB ANEU(LOINC) 2.25-8.10 10 3/mcL High Neutrophil, 10.20 Absolute Performed By: #### CBC, ADIFF, ANEU, BMP, GFR #### [place] [address] BMP Collected: 07/13/2018 Status: F Source: [facility] 6:02 [facility] REPOSITORY TYPE CODE TESTS RESULT OUT OF [...] #### CBC, ADIFF, ANEU, BMP, GFR #### [address] [address] .GFR Collected: 07/13/2018 Status: F Source: [facility] 6:02 AM [facility] REPOSITORY TYPE CODE TESTS RESULT OUT OF REFERENCE UNITS RANGE LAB GFRAA(LOINC ml/min/1.73 ) sqm GFR 52 [place] Result Comment: GFR Population mean for , [...] #### CBC, ADIFF, ANEU, BMP, GFR #### [address] [address] XR TIBIA/FIBULA 2 VIEWS Observed: 07/12/2018 Status: F Source: [facility] 2:20 PM [facility] REPOSITORY ORIGINAL XR TIBIA/FIBULA 2 VIEWS RIGHT [...] 4:53:43 PM Observed: 07/12/2018 Status: F Source: [facility] 11:07 AM [facility] [place] REPOSITORY . MICRO - Microbiology PROCEDURE: Culture [...] Locations *1: This test was performed at: [facility], [address] [place] [address], [address] [place] [address] Performed By: #### CWDP #### [place] [address] CBC Collected: 07/12/2018 Status: F Source: [facility] 5:22 AM [facility] [place] REPOSITORY TYPE CODE TESTS RESULT OUT OF [...] FES, CMP, GFR, B12, T3, PRALB #### [address] [address] .AUTO DIFF Collected: 07/12/2018 Status: F Source: [facility] 5:22 AM [facility] [place] REPOSITORY TYPE CODE TESTS RESULT OUT OF [...] FES, CMP, GFR, B12, T3, PRALB #### [place] [address] .NEUABS Collected: 07/12/2018 Status: F Source: [facility] 5:22 AM [facility] [place] REPOSITORY TYPE CODE TESTS RESULT OUT OF REFERENCE UNITS RANGE LAB ANEU(LOINC) 2.25-8.10 10 3/mcL High Neutrophil, 13.30 Absolute Performed By: #### CBC, ADIFF, ANEU, MG, PHOS, TSH, T4, FES, CMP, GFR, B12, T3, PRALB #### [place] [address] MG Collected: 07/12/2018 Status: F Source: [facility] 5:22 AM [facility] [place] REPOSITORY TYPE CODE TESTS RESULT OUT OF REFERENCE UNITS RANGE LAB MG(LOINC) 1.6-2.4 mg/dL Magnesium Lvl 2.1 Performed By: #### CBC, ADIFF, ANEU, MG, PHOS, TSH, T4, FES, CMP, GFR, B12, T3, PRALB #### [place] [address] PHOS Collected: 07/12/2018 Status: F Source: [facility] 5:22 AM [facility] [place] REPOSITORY TYPE CODE TESTS RESULT OUT OF REFERENCE UNITS RANGE LAB PHOS(LOINC 2.5-4.5 mg/dL ) Phosphorus 2.5 Performed By: #### CBC, ADIFF, ANEU, MG, PHOS, TSH, T4, FES, CMP, GFR, B12, T3, PRALB #### [place] [address] TSH Collected: 07/12/2018 Status: F Source: [facility] 5:22 AM [facility] [place] REPOSITORY TYPE CODE TESTS RESULT OUT OF RANGE REFERENCE UNITS LAB TSH(LOINC) 0.360-3.740 mcIU/mL TSH 2.020 Result Comment: Please note as of 05/14/17 new pediatric reference intervals were added for this test. Performed By: #### CBC, ADIFF, ANEU, MG, PHOS, TSH, T4, FES, CMP, GFR, B12, T3, PRALB #### [place] [address] T4 Collected: 07/12/2018 Status: F [facility] AM [facility] [place] REPOSITORY TYPE CODE TESTS RESULT OUT OF RANGE REFERENCE UNITS LAB T4(LOINC) 4.7-11.4 mcg/dL Low T4 4.4 Result Comment: Please note as of 05/14/17 new pediatric reference intervals were added for this test. Performed By: #### CBC, ADIFF, ANEU, MG, PHOS, TSH, T4, FES, CMP, GFR, B12, T3, PRALB #### [place] [address] FES Collected: 07/12/2018 Status: F [facility] 5[facility]22 AM [facility] [place] REPOSITORY TYPE CODE TESTS RESULT OUT OF RANGE REFERENCE UNITS LAB FE(LOINC) 37-170 mcg/dL Low Iron 13 LAB IBC(LOINC) 250-500 mcg/dL Low TIBC 92 LAB FESAT(LOINC % ) Iron Sat 14 Performed By: #### CBC, ADIFF, ANEU, MG, PHOS, TSH, T4, FES, CMP, GFR, B12, T3, PRALB #### [place] [address] CMP Collected: 07/12/2018 Status: F Source: [facility] 5:22 AM [facility] [place] REPOSITORY TYPE CODE TESTS RESULT OUT OF [...] FES, CMP, GFR, B12, T3, PRALB #### [place] [address] .GFR Collected: 07/12/2018 Status: F Source: [facility] 5:22 AM [facility] REPOSITORY TYPE CODE TESTS RESULT OUT OF REFERENCE UNITS RANGE LAB GFRAA(LOINC ml/min/1.73 ) sqm GFR 43 [place] Result Comment: GFR Population mean for , [...] FES, CMP, GFR, B12, T3, PRALB #### [address] [address] B12 Collected: 07/12/2018 Status: F Source: [facility] 5:22 AM [facility] [place] REPOSITORY TYPE CODE TESTS RESULT OUT OF REFERENCE UNITS RANGE LAB B12(LOINC) 211-911 pg/mL High Vitamin B12 1089 Lvl Performed By: #### CBC, ADIFF, ANEU, MG, PHOS, TSH, T4, FES, CMP, GFR, B12, T3, PRALB #### [address] [address] T3 Collected: 07/12/2018 Status: F Source: [facility] 5:22 AM [facility] [place] REPOSITORY TYPE CODE TESTS RESULT OUT OF RANGE REFERENCE UNITS LAB T3(LOINC) 60-181 ng/dL Low Total T3 25 Result Comment: Please note ? as of 7/15/17 new pediatric reference intervals were added for this test. Performed By: #### CBC, ADIFF, ANEU, MG, PHOS, TSH, T4, FES, CMP, GFR, B12, T3, PRALB #### [address] [address] PRALB Collected: 07/12/2018 Status: F Source: [facility] 5:22 AM [facility] [place] REPOSITORY TYPE CODE TESTS RESULT OUT OF REFERENCE UNITS RANGE LAB PRALB(LOIN 18.0-38.0 mg/dL C) Low Prealbumin 5.1 Performed By: #### CBC, ADIFF, ANEU, MG, PHOS, TSH, T4, FES, CMP, GFR, B12, T3, PRALB #### [address] [address] XR CHEST 1 VIEW Observed: 07/12/2018 Status: F Source: [facility] 4:59 AM [facility] [place] REPOSITORY ORIGINAL XR CHEST 1 VIEW portable [...] AM UA Collected: 07/11/2018 Status: F Source: [facility] 6:40 PM [facility] [place] REPOSITORY TYPE CODE TESTS RESULT OUT OF [...] Large Performed By: #### UA, UAMIC #### [place] [address] UAMIC Collected: 07/11/2018 Status: F Source: [facility] 6:40 PM [facility] [place] REPOSITORY TYPE CODE TESTS RESULT OUT OF [...] 3-5 Performed By: #### UA, UAMIC #### [place] [address] Observed: 07/11/2018 Status: F Source: [facility] 6:40 PM [facility] [place] REPOSITORY . MICRO - Microbiology PROCEDURE: Urine [...] Locations *1: This test was performed at: [address] Performed By: #### CUR #### [place] [address] PRO Collected: 07/11/2018 Status: F Source: [facility] 5:31 AM [facility] REPOSITORY TYPE CODE [...] By: #### PRO, CBC, DIFF, MORPH #### [address] [address] #### BMP, GFR #### [place] [address] BMP Collected: 07/11/2018 Status: F Source: [facility] 5:31 AM [facility] [place] REPOSITORY TYPE CODE TESTS RESULT OUT OF [...] By: #### PRO, CBC, DIFF, MORPH #### [address] [address] #### BMP, GFR #### [address] [address] .GFR Collected: 07/11/2018 Status: F Source: [facility] 5:31 AM [facility] [place] REPOSITORY TYPE CODE TESTS RESULT OUT OF REFERENCE UNITS RANGE LAB GFRAA(LOINC ml/min/1.73 ) sqm GFR 32 [place] Result Comment: GFR Population mean for , [...] By: #### PRO, CBC, DIFF, MORPH #### [address] [address] #### BMP, GFR #### [address] [address] CBC Collected: 07/11/2018 Status: F Source: [facility] 5:31 AM [facility] REPOSITORY TYPE CODE [...] By: #### PRO, CBC, DIFF, MORPH #### [address] [address] #### BMP, GFR #### [address] [address] .MANUAL DIFF Collected: 07/11/2018 Status: F Source: [facility] 5:31 AM [facility] [place] REPOSITORY TYPE CODE TESTS RESULT OUT OF [...] By: #### PRO, CBC, DIFF, MORPH #### [address] [address] #### BMP, GFR #### [address] [address] .MORPH Collected: 07/11/2018 Status: F Source: [facility] 5:31 [facility] REPOSITORY TYPE CODE TESTS RESULT OUT OF REFERENCE UNITS RANGE LAB PLTE(LOINC ) Platelet Estimate Normal LAB ANIS(LOINC ) Anisocytosis Slight LAB HYPC(LOINC ) Hypochrom Moderate LAB STMT(LOINC ) Stomatocytes Few LAB TGR(LOINC) Toxic Gran Moderate Performed By: #### PRO, CBC, DIFF, MORPH #### [address] [address] #### BMP, GFR #### [place] [address] PRO Collected: 07/10/2018 Status: F Source: [facility] 5:56 AM [facility] [place] REPOSITORY Order Comment: ordered secondary to warfarin [...] - 3.5 Performed By: #### PRO #### [address] [address] PRO Collected: 07/09/2018 Status: F Source: [facility] 6:03 AM [facility] [place] REPOSITORY TYPE CODE TESTS RESULT OUT OF [...] - 3.5 Performed By: #### PRO #### [address] [address] BMP Collected: 07/09/2018 Status: F Source: [facility] 6:03 AM [facility] [place] REPOSITORY TYPE CODE TESTS RESULT OUT OF [...] 8.2 Performed By: #### BMP, GFR #### [address] [address] .GFR Collected: 07/09/2018 Status: F Source: [facility] 6:03 AM [facility] REPOSITORY TYPE CODE TESTS RESULT OUT OF REFERENCE UNITS RANGE LAB GFRAA(LOINC ml/min/1.73 ) sqm GFR 33 [place] Result Comment: GFR Population mean for , [...] meters Performed By: #### BMP, GFR #### [address] [address] CBC Collected: 07/08/2018 Status: F Source: [facility] 8:43 AM [facility] [place] REPOSITORY Order Comment: ordered secondary to warfarin [...] Low MPV 7.3 Performed By: #### CBC, ADIFF, ANEU #### [address] [address] .AUTO DIFF Collected: 07/08/2018 Status: F Source: [facility] 8:43 [facility] REPOSITORY TYPE CODE TESTS RESULT OUT OF [...] Performed By: #### CBC, ADIFF, ANEU #### [place] [address] [place], [place] [address] .NEUABS Collected: 07/08/2018 Status: F Source: [facility] 8:43 AM [facility] [place] REPOSITORY TYPE CODE TESTS RESULT OUT OF REFERENCE UNITS RANGE LAB ANEU(LOINC) 2.85-6.16 10 3/mcL High Neutrophil, 17.40 Absolute Performed By: #### CBC, ADIFF, ANEU #### [place] [address] [place], [place] [address] BMP Collected: 07/08/2018 Status: F Source: [facility] 6:38 AM [facility] [place] REPOSITORY TYPE CODE TESTS RESULT OUT OF [...] 8.3 Performed By: #### BMP, GFR #### [address] [address] .GFR Collected: 07/08/2018 Status: F Source: [facility] 6:38 AM [facility] [place] REPOSITORY TYPE CODE TESTS RESULT OUT OF REFERENCE UNITS RANGE LAB GFRAA(LOINC ml/min/1.73 ) sqm GFR 30 [place] Result Comment: GFR Population mean for , [...] meters Performed By: #### BMP, GFR #### [place] [address] PRO Collected: 07/08/2018 Status: F Source: [facility] 6:38 AM [facility] [place] REPOSITORY TYPE CODE TESTS RESULT OUT OF [...] - 3.5 Performed By: #### PRO #### [address] [address] BMP Collected: 07/07/2018 Status: F Source: [facility] 5:09 AM [facility] [place] REPOSITORY TYPE CODE TESTS RESULT OUT OF [...] 7.8 Performed By: #### BMP, GFR #### [facility] [address] [place] [address] #### CBC, ADIFF, ANEU #### [address] [address] .GFR Collected: 07/07/2018 Status: F Source: [facility] 5:09 AM [facility] REPOSITORY TYPE CODE TESTS RESULT OUT OF REFERENCE UNITS RANGE LAB GFRAA(LOINC ml/min/1.73 ) sqm GFR 33 [place] Result Comment: GFR Population mean for , [...] meters Performed By: #### BMP, GFR #### [address] [address] #### CBC, ADIFF, ANEU #### [address] [address] CBC Collected: 07/07/2018 Status: F Source: [facility] 5:09 AM [facility] [place] REPOSITORY TYPE CODE TESTS RESULT OUT OF [...] 7.7 Performed By: #### BMP, GFR #### [address] [address] #### CBC, ADIFF, ANEU #### [address] [address] .AUTO DIFF Collected: 07/07/2018 Status: F Source: [facility] 5:09 AM [facility] [place] REPOSITORY TYPE CODE TESTS RESULT OUT OF [...] Absolute Performed By: #### BMP, GFR #### [place] [address] #### CBC, ADIFF, ANEU #### [address] [address] .NEUABS Collected: 07/07/2018 Status: F Source: [facility] 5:09 AM [facility] [place] REPOSITORY TYPE CODE TESTS RESULT OUT OF REFERENCE UNITS RANGE LAB ANEU(LOINC) 2.85-6.16 10 3/mcL High Neutrophil, 9.70 Absolute Performed By: #### BMP, GFR #### [place] [address] #### CBC, ADIFF, ANEU #### [address] [address] PRO Collected: 07/07/2018 Status: F Source: [facility] 5:09 [facility] REPOSITORY TYPE CODE TESTS RESULT OUT OF [...] - 3.5 Performed By: #### PRO #### [address] [address] OCC (LAB) Collected: 07/06/2018 Status: F Source: [facility] 1:41 PM [facility] [place] REPOSITORY TYPE CODE TESTS RESULT OUT OF REFERENCE UNITS RANGE LAB OCC(LOINC) Negative Occult Negative Blood Fecal Performed By: #### OCC #### [address] [address] CBC Collected: 07/06/2018 Status: F Source: [facility] 5:51 AM [facility] [place] REPOSITORY TYPE CODE TESTS RESULT OUT OF [...] Performed By: #### CBC, ADIFF, ANEU #### [address] [address] #### BMP, GFR, ESR, CRP #### [address] [address] .AUTO DIFF Collected: 07/06/2018 Status: F Source: [facility] 5:51 AM [facility] [place] REPOSITORY TYPE CODE TESTS RESULT OUT OF [...] Performed By: #### CBC, ADIFF, ANEU #### [place] [address] [place], [place] [address] #### BMP, GFR, ESR, CRP #### [address] [address] .NEUABS Collected: 07/06/2018 Status: F Source: [facility] 5:51 AM [facility] [place] REPOSITORY TYPE CODE TESTS RESULT OUT OF REFERENCE UNITS RANGE LAB ANEU(LOINC) 2.85-6.16 10 3/mcL Neutrophil, 6.10 Absolute Performed By: #### CBC, ADIFF, ANEU #### [address] [address] #### BMP, GFR, ESR, CRP #### [address] [address] BMP Collected: 07/06/2018 Status: F Source: [facility] 5:51 AM [facility] [place] REPOSITORY TYPE CODE TESTS RESULT OUT OF [...] Performed By: #### CBC, ADIFF, ANEU #### [address] [address] #### BMP, GFR, ESR, CRP #### [place] [address] .GFR Collected: 07/06/2018 Status: F Source: [facility] 5:51 AM [facility] REPOSITORY TYPE CODE TESTS RESULT OUT OF REFERENCE UNITS RANGE LAB GFRAA(LOINC ml/min/1.73 ) sqm GFR 33 [place] Result Comment: GFR Population mean for , [...] By: #### CBC, ADIFF, ANEU #### [place] [address] [place], [place] [address] #### BMP, GFR, ESR, CRP #### [place] [address] ESR Collected: 07/06/2018 Status: F Source: [facility] 5:51 AM [facility] [place] REPOSITORY TYPE CODE TESTS RESULT OUT OF REFERENCE UNITS RANGE LAB ESR(LOINC) 0-30 mm/hr Erythrocyte High Sed Rate 67 Performed By: #### CBC, ADIFF, ANEU #### [address] [address] #### BMP, GFR, ESR, CRP #### [place] [address] CRP Collected: 07/06/2018 Status: F Source: [facility] 5:51 AM [facility] [place] REPOSITORY TYPE CODE TESTS RESULT OUT OF REFERENCE UNITS RANGE LAB CRP(LOINC) <=0.80 mg/dL High C-Reactive 12.40 Protein Performed By: #### CBC, ADIFF, ANEU #### [address] [address] #### BMP, GFR, ESR, CRP #### [place] [address] PRO Collected: 07/06/2018 Status: F Source: [facility] 5:51 AM [facility] [place] REPOSITORY TYPE CODE TESTS RESULT OUT OF [...] - 3.5 Performed By: #### PRO #### [address] [address] PROGRESS Observed: 07/05/2018 Status: COMPLETED Source: [facility] 9:41 AM [facility] REPOSITORY HNO ID: [id number] Author: Maritza Tian [facility] Service: (none) Author Type: Registered Nurse Type: Progress Notes Filed: 07/05/2018 9:55 AM Note Text: PRIMARY CARE COORDINATION FOLLOW-UP NOTE Provider Action/FYI: Pt likely going to [facility] in [place] after hospitalization at [facility]. Patient identified by name and date of . YES Spoke to Carrie at [facility] Summary: Carrie is working directly with [facility] to transition pt to [facility] after her hospitalization. Concerns: We'll see how pt does when in rehab for longer period of time and hopefully she will be compliant with all their treatment plans. [employer] plan for next outreach: Will follow up after D/C from [facility] Maritza Howe RN Ambulatory Client Application Support Engineer [facility] July 05, 2018 CBC Collected: 07/05/2018 Status: F Source: [facility] 5:05 AM [facility] [place] REPOSITORY TYPE CODE TESTS RESULT OUT OF [...] Performed By: #### CBC, ADIFF, ANEU #### [facility] [address] [place], [place] [address] #### MG, FES, GFR, CMP #### [facility] [address] [place] [address] .AUTO DIFF Collected: 07/05/2018 Status: F Source: [facility] 5:05 AM [facility] [place] REPOSITORY TYPE CODE TESTS RESULT OUT OF [...] Performed By: #### CBC, ADIFF, ANEU #### [address] [address] #### MG, FES, GFR, CMP #### [place] [id number] .NEUABS Collected: 07/05/2018 Status: F Source: [place] 5:05 AM [facility] [place] REPOSITORY TYPE CODE TESTS RESULT OUT OF REFERENCE UNITS RANGE LAB ANEU(LOINC) 2.85-6.16 10 3/mcL High Neutrophil, 9.60 Absolute Performed By: #### CBC, ADIFF, ANEU #### [address] [address] #### MG, FES, GFR, CMP #### [place] [id number] MG Collected: 07/05/2018 Status: F Source: [facility] 5:05 [facility] REPOSITORY TYPE CODE TESTS RESULT OUT OF REFERENCE UNITS RANGE LAB MG(LOINC) 1.8-2.4 mg/dL Low Magnesium Lvl 1.6 Performed By: #### CBC, ADIFF, ANEU #### [address] [address] [address] #### MG, FES, GFR, CMP #### [place] [address] FES Collected: 07/05/2018 Status: F Source: JERMAINE Zaranga 5:05 AM [facility] [place] REPOSITORY TYPE CODE TESTS RESULT OUT OF RANGE REFERENCE UNITS LAB FE(LOINC) 50-70 mcg/dL Low Iron 9 LAB IBC(LOINC) 250-450 mcg/dL Low TIBC 102 LAB FESAT(LOINC % ) Iron Sat 9 Performed By: #### CBC, ADIFF, ANEU #### [address] [address] #### MG, FES, GFR, CMP #### [address] [address] .GFR Collected: 07/05/2018 Status: F Source: [email or web address] 5:05 AM [facility] [place] REPOSITORY TYPE CODE TESTS RESULT OUT OF REFERENCE UNITS RANGE LAB GFRAA(LOINC ml/min/1.73 ) sqm GFR 28 [place] Result Comment: GFR Population mean for , [...] Performed By: #### CBC, ADIFF, ANEU #### [address] [address] #### MG, FES, GFR, CMP #### [address] [address] CMP Collected: 07/05/2018 Status: F Source: [facility] 5:05 AM [facility] REPOSITORY TYPE CODE [...] Performed By: #### CBC, ADIFF, ANEU #### [address] [address] #### MG, FES, GFR, CMP #### [address] [address] PRO Collected: 07/05/2018 Status: F Source: [facility] 5:05 AM [facility] [place] REPOSITORY TYPE CODE TESTS RESULT OUT OF [...] - 3.5 Performed By: #### PRO #### [address] [address] CBC Collected: 07/04/2018 Status: F Source: [facility] 3:25 PM [facility] [place] REPOSITORY TYPE CODE TESTS RESULT OUT OF [...] Performed By: #### CBC, ADIFF, ANEU #### [address] [address] #### PBNP, BMP, GFR, LAC #### [address] [address] .AUTO DIFF Collected: 07/04/2018 Status: F Source: [facility] 3:25 PM [facility] [place] REPOSITORY TYPE CODE TESTS RESULT OUT OF [...] Performed By: #### CBC, ADIFF, ANEU #### [place] [address] #### PBNP, BMP, GFR, LAC #### [place] [address] .NEUABS Collected: 07/04/2018 Status: F Source: [facility] 3:25 [facility] [place] REPOSITORY TYPE CODE TESTS RESULT OUT OF REFERENCE UNITS RANGE LAB ANEU(LOINC) 2.85-6.16 10 3/mcL High Neutrophil, 13.30 Absolute Performed By: #### CBC, ADIFF, ANEU #### [place] [id number] #### PBNP, BMP, GFR, LAC #### [place] [address] PBNP Collected: 07/04/2018 Status: F Source: [facility] 3:25 PM [facility] [place] REPOSITORY TYPE CODE TESTS RESULT OUT OF REFERENCE UNITS RANGE LAB PBNP(LOINC) 0-450 pg/mL High N-Terminal [address] proBNP Result Comment: NT-proBNP results of less than 300 pg/mL effectively rules out acute congestive heart failure with 99% negative predictive value. Performed By: #### CBC, ADIFF, ANEU #### [place] [id number] #### PBNP, BMP, GFR, LAC #### [address] [address] BMP Collected: 07/04/2018 Status: F Source: [facility] 3:25 PM [facility] [place] REPOSITORY TYPE CODE TESTS RESULT OUT OF [...] Performed By: #### CBC, ADIFF, ANEU #### [address] [address] #### PBNP, BMP, GFR, LAC #### [place] [address] .GFR Collected: 07/04/2018 Status: F Source: [facility] 3:25 PM [facility] [place] REPOSITORY TYPE CODE TESTS RESULT OUT OF REFERENCE UNITS RANGE LAB GFRAA(LOINC ml/min/1.73 ) sqm GFR 34 [place] Result Comment: GFR Population mean for , [...] Performed By: #### CBC, ADIFF, ANEU #### [address] [address] #### PBNP, BMP, GFR, LAC #### [address] [address] LAC Collected: 07/04/2018 Status: F Source: [facility] 3:25 PM [facility] REPOSITORY TYPE CODE TESTS RESULT OUT OF REFERENCE UNITS RANGE LAB LAC(LOINC) 0.4-2.0 mmol/L Lactic Acid 1.0 Lvl Performed By: #### CBC, ADIFF, ANEU #### [address] [address] #### PBNP, BMP, GFR, LAC #### [address] [address] PROGRESS Observed: 07/04/2018 Status: COMPLETED Source: [place] 9:35 AM [facility] REPOSITORY HNO ID: [id number] Author: Maritza Tian [facility] Service: (none) Author Type: Registered Nurse Type: Progress Notes Filed: 07/05/2018 9:55 AM Note Text: PRIMARY CARE COORDINATION FOLLOW-UP NOTE Provider Action/FYI: Working on Rehab placement for pt again. Patient identified by name and date of . YES Spoke to numerous people Summary: The pt was not able to go to [facility] this weekend and wound up going to [facility] last night 9/3, per Sheron, her D-in-L. I then spoke [...] been clear that she will NOT consider intermodal customer service placement. They have decided to keep her at least one night since she was unable to participate in PT/OT eval. [employer] plan for next outreach: Will follow up with answer from Britney. Signature Maritza Howe founding partner Client Application Support Engineer Internal Medicine [place] [facility] July 04, 2018 Observed: 07/04/2018 Status: F Source: [facility] 5:26 AM [facility] REPOSITORY . MICRO [...] Locations *1: This test was performed at: [facility], [address] [place] [address], [id number]- , [facility] Performed By: #### CWD #### [address] [address] PRO Collected: 07/04/2018 Status: F Source: [facility] 5:02 AM [facility] REPOSITORY TYPE CODE [...] - 3.5 Performed By: #### PRO #### [facility] [address] [place], [place] [address] CNPTOUTREA Observed: 07/04/2018 Status: COMPLETED Source: [place] 12:00 AM [facility] REPOSITORY Patient Outreach (INTMWS) ROSA BELTRAN ([id number]) 1935 F Date Time Provider Department 07/04/18 MARITZA RUSSELL INTSimoneWS During your visit today, we recorded the following information about you: Maritza Tian RN 07/05/2018 9:55 AM Signed PRIMARY CARE COORDINATION FOLLOW-UP NOTE Provider Action/FYI: Working on Rehab placement for pt again. Patient identified by name and date of . YES Spoke to numerous people Summary: The pt was not able to go to [facility] this weekend and wound up going to [facility] last night 07/03, per Sheron, her D-in-L. [...] been clear that she will NOT consider retirement placement. They have decided to keep her at least one night since she was unable to participate in PT/OT eval. [employer] plan for next outreach: Will follow up with answer from Britney. Signature Maritza Howe RN Ambulatory Client Application Support Engineer Internal Medicine [facility] July 04, 2018 Maritza Tian RN 07/05/2018 9:55 AM Signed PRIMARY CARE COORDINATION FOLLOW-UP NOTE Provider Action/FYI: Pt likely going to [facility] in [place] after hospitalization at [facility]. Patient identified by name and date of . YES Spoke to Carrie at [facility] Summary: Carrie is working directly with [facility] to transition pt to [facility] after her hospitalization. Concerns: We'll see how pt does when in rehab for longer period of time and hopefully she will be compliant with all their treatment plans. [employer] plan for next outreach: Will follow up after D/C from Britney Signature Maritza Howe RN Ambulatory Client Application Support Engineer Internal Medicine [facility] July 05, 2018 Volodymyr Gilbert [facility] 07/26/2018 8:54 AM Signed Left message for SW at [facility] [place] to call me back. Volodymyr Gilbert [facility] 10/04/2018 8:41 AM Signed No discharge plans [...] on 07/05/18 Observed: 07/03/2018 Status: F Source: [facility] 10:44 PM [facility] [place] REPOSITORY . MICRO - Microbiology PROCEDURE: Blood [...] Locations *1: This test was performed at: [facility], [address] [place] [address], [facility]- , [facility] Performed By: #### CBL #### [place] [address] XR CHEST 1 VIEW Observed: 07/03/2018 Status: F Source: [facility] 10:42 PM [facility] [place] REPOSITORY ORIGINAL XR CHEST 1 VIEW PORTABLE [...] PM CBC Collected: 07/03/2018 Status: F Source: [facility] 10:29 [facility] [place] REPOSITORY TYPE CODE TESTS RESULT OUT OF [...] By: #### CBC, ADIFF, ANEU, PRO #### [address] [address] #### BMP, GFR, TROP, PBNP, LAC #### [address] [address] .AUTO DIFF Collected: 07/03/2018 Status: F Source: [facility] 10:29 [facility] [place] REPOSITORY TYPE CODE TESTS RESULT OUT OF [...] By: #### CBC, ADIFF, ANEU, PRO #### [address] [address] #### BMP, GFR, TROP, PBNP, LAC #### [address] [address] .NEUABS Collected: 07/03/2018 Status: F Source: [facility] 10:29 [facility] [place] REPOSITORY TYPE CODE TESTS RESULT OUT OF REFERENCE UNITS RANGE LAB ANEU(LOINC) 2.85-6.16 10 3/mcL High Neutrophil, 17.20 Absolute Performed By: #### CBC, ADIFF, ANEU, PRO #### [address] [address] #### BMP, GFR, TROP, PBNP, LAC #### [address] [address] BMP Collected: 07/03/2018 Status: F Source: [facility] 10:29 [facility] [place] REPOSITORY TYPE CODE TESTS RESULT OUT OF [...] By: #### CBC, ADIFF, ANEU, PRO #### [place] [address] [place], [place] [address] #### BMP, GFR, TROP, PBNP, LAC #### [facility] [address] [place] [address] .GFR Collected: 07/03/2018 Status: F Source: [facility] 10:29 PM [facility] REPOSITORY TYPE CODE TESTS RESULT OUT OF REFERENCE UNITS RANGE LAB GFRAA(LOINC ml/min/1.73 ) sqm GFR 46 [place] Result Comment: GFR Population mean for , [...] By: #### CBC, ADIFF, ANEU, PRO #### [address] [address] #### BMP, GFR, TROP, PBNP, LAC #### [address] [address] TROP Collected: 07/03/2018 Status: F Source: [facility] 10:29 PM [facility] [place] REPOSITORY TYPE CODE TESTS RESULT OUT OF REFERENCE UNITS RANGE LAB TROP(LOINC) 0.000-0.040 ng/mL Troponin <0.020 Result Comment: Troponin I reference range: 0.00-0.040 ng/mL Negative and non-diagnostic. >0.040 ng/mL Consistent with cardiac damage, increased clinical risk and possibility of myocardial infarction. Serial measurements, a rise & fall in test results, clinical history, appropriate symptoms and/or ECG changes may help assess possibility of MO. *Other non-acute coronary syndrome conditions such as CHF, myocarditis, pulmonary emboli, sepsis and cardiac surgery could result in myocardial damage and increased troponin levels. Performed By: #### CBC, ADIFF, ANEU, PRO #### [place] [address] #### BMP, GFR, TROP, PBNP, LAC #### [place] [address] PBNP Collected: 07/03/2018 Status: F Source: [facility] 10:29 [facility] [place] REPOSITORY TYPE CODE TESTS RESULT OUT OF REFERENCE UNITS RANGE LAB PBNP(LOINC) 0-450 pg/mL High N-Terminal 3546 proBNP Result Comment: NT-proBNP results of less than 300 pg/mL effectively rules out acute congestive heart failure with 99% negative predictive value. Performed By: #### CBC, ADIFF, ANEU, PRO #### [place] [id number] #### BMP, GFR, TROP, PBNP, LAC #### [place] [address] PRO Collected: 07/03/2018 Status: F Source: [facility] 10:29 PM [facility] [place] REPOSITORY TYPE CODE TESTS RESULT OUT OF [...] By: #### CBC, ADIFF, ANEU, PRO #### [address] [address] #### BMP, GFR, TROP, PBNP, LAC #### [address] [address] LAC Collected: 07/03/2018 Status: F Source: [facility] 10:29 PM [facility] [place] REPOSITORY TYPE CODE TESTS RESULT OUT OF REFERENCE UNITS RANGE LAB LAC(LOINC) 0.4-2.0 mmol/L Lactic Acid 1.4 Lvl Performed By: #### CBC, ADIFF, ANEU, PRO #### [address] [address] #### BMP, GFR, TROP, PBNP, LAC #### [address] [address] UA Collected: 07/03/2018 Status: F Source: [facility] 10:29 PM [facility] [place] REPOSITORY TYPE CODE TESTS RESULT OUT OF [...] Negative Performed By: #### UA, UAMICAO #### [facility] [address] [place], [place] [address] .URINALYSIS MICROSCOPIC Collected: 07/03/2018 Status: F Source: [place] () 10:29 PM [facility] REPOSITORY TYPE CODE TESTS RESULT OUT OF REFERENCE UNITS RANGE LAB WBCUA(LOIN None Seen /hpf C) UA WBC None Seen LAB RBCUA(LOIN None Seen /hpf C) UA RBC None Seen LAB EPIUA(LOIN None Seen /hpf C) UA Squam Epithelial None Seen Performed By: #### UA, UAMICAO #### [facility] [address] [place], [place] [address] Observed: 07/03/2018 Status: F Source: [facility] 10:29 PM [facility] [place] REPOSITORY . MICRO - Microbiology PROCEDURE: Blood [...] Locations *1: This test was performed at: [facility], [address] [place] [address], [address] [place] [address] Performed By: #### CBL #### [place] [address] Observed: 07/03/2018 Status: F Source: [facility] 10:29 PM [facility] [place] REPOSITORY . MICRO - Microbiology PROCEDURE: Urine [...] Locations *1: This test was performed at: [facility], [address] [place] [address], [address] , [facility] Performed By: #### CUR #### [address] [address] PROGRESS Observed: 06/30/2018 Status: COMPLETED Source: [place] 5:21 PM [facility] REPOSIT[facility] HNO ID: [id number] Author: Maritza Howe Service: (none) Author Type: Registered Nurse Type: Progress Notes Filed: 07/04/2018 9:18 AM Note Text: PRIMARY CARE COORDINATION FOLLOW-UP NOTE Provider Action/FYI: Pt to go to [facility]. Patient identified by name and date of [...] get wounds healed sufficiently. She prefers the [facility] in [place]. Sheron has spoke with Carrie and [...] in recliner, but legs not elevated enough. [employer] plan for next outreach: Will follow up Tu (due to holiday). with the [facility]. Signature Maritza Howe founding partner Client Application Support Engineer Internal Medicine [facility] June 30, 2018 ANA Observed: 06/30/2018 Status: COMPLETED Source: [place] 12:00 AM [facility] REPOSITORY Patient Outreach (INTMWS) ROSA BELTRAN ([id number]) 1935 F Date Time Provider Department 06/30/18 MARITZA RUSSELL During your visit today, we recorded the following information about you: Maritza Tian RN 07/04/2018 9:18 AM Signed PRIMARY CARE COORDINATION FOLLOW-UP NOTE Provider Action/FYI: Pt to go to [facility]. Patient identified by name and date of . YES Spoke to daughter in lawSheron Summary: Pt has used all 5 canisters [...] get wounds healed sufficiently. She prefers the [facility] in [place]. Sheron has spoke with Carrie and [...] in recliner, but legs not elevated enough. [employer] plan for next outreach: Will follow up Tu (due to holiday). with the [facility]. Signature Maritza Howe RN Ambulatory Client Application Support Engineer Internal Medicine [facility] June 30, 2018 Volodymyr Gilbert CMA 08/02/2018 8:51 AM Signed I called [facility] [place] the past several weeks and was unable to get a hold of anyone, but Left message for SW to return call #[phone]. I got a hold of someone today and they said the SW if out of the office at this time, but they took my Name and direct number so they will give her the message and have her give me a call back. Volodymyr Gilbert [facility] 08/03/2018 2:50 PM Signed Left message with Eva [phone] (she will call me back) Volodymyr Gilbert [facility] 08/04/2018 11:05 AM Signed I called and spoke with KUMAR Velasquez at [facility] ([phone]) who states Rosa is doing well. This [...] health care set up) or look at intermodal customer service care facilities. They may have a decision next week. Volodymyr Gilbert [facility] 08/09/2018 12:14 PM Signed I spoke with KUMAR Velasquez at [facility] [place] who states she's been in contact with Helena at [facility] in [place] and oRsa will potentially be transferring to [facility] today. She will be there for rehab/therapy and wound care and will hopefully will be able to be discharged home at some point. Volodymyr Gilbert CMA 08/16/2018 9:30 AM Signed I called and spoke with [facility] who states Rosa was transferred to their facility last week. Unable to reach SW, but they will give her the message and call with any discharge plans/updats. Volodymyr Gilbert CMA 08/24/2018 9:17 AM Signed No discharge plans in place at this time. Volodymyr Gilbert CMA 08/30/2018 9:25 AM Signed Left message for SW to return call #[phone] Volodymyr Gilbert CMA 09/07/2018 10:02 AM Signed No discharge plans in place at this time. Volodymyr Gilbert CMA 09/13/2018 9:53 AM Signed Left message for SW to return my call for an update. Volodymyr Gilbert [facility] 09/20/2018 8:59 AM Addendum Left message for to return call #[phone] Volodymyr Gilbert [facility] 09/27/2018 8:58 AM Signed Left message for to return call #[phone]. Patient still @ [facility]. Volodymyr Gilbert [facility] 10/11/2018 8:55 AM Signed I spoke with Kd @ [facility] and she states there's no discharge plans in place at this time. Volodymyr Gilbert [facility] 10/18/2018 8:34 AM Signed I spoke with Emilee at [facility] and she states there are no discharge plans at this time. Volodymyr Gilbert [facility] 10/25/2018 9:15 AM Signed Spoke with Emilee at [facility] and she states no discharge plans in place at this time. Volodymyr Gilbert [facility] 11/01/2018 9:32 AM Signed Spoke with Emilee at [facility]. States still no discharge plans at this time. Volodymyr Gilbert [facility] 11/08/2018 9:02 AM Signed Spoke with Emilee at [facility]. 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 I will call back x 1 week for another update. Volodymyr Gilbert [facility] 11/15/2018 9:51 AM Signed Rosa 11/10/18. Allergies As of Date: 06/30/2018 (No Known Allergies) Date Reviewed: 06/27/2018 Reviewed by: Belle Ignacio RN - Fully Assessed Reason for Visit: Transition Of Care [5854] Reason For Visit History Recorded Prescriptions as [...] Encounter Status:Closed by MARITZA HOWE on 07/04/18 LOIN Observed: 06/30/2018 Status: COMPLETED Source: [place] 12:00 AM [facility] REPOSITORY Telephone (INTMWS) ROSA BELTRAN ([id number]) 1935 F Date Time Provider Department 06/30/18 AURORA BOLAND During your visit today, we recorded the following information about you: Carrie Steiner RN 06/30/2018 1:14 PM Signed Nurse Marlen calling from [facility]. Patient had wound vac discontinued due to container being full every 3 hours and she now has a Optilock dressing that has to be drained twice a day and daughter works too many hours and is unable to do this and is needing SNF admission for her mother today if possible. VNS called to [facility] and [facility] and they are both full. They also have calls out to other LTC facilities in [facility] and are awaiting calls back for an open bed. This nurse forwarded to on-call doctor, Dr. Boland and to post anesthesia care unit nurse for review. Carrie BOLAND MD 06/30/2018 4:41 [...] [Other] looking for SNF [Other] Cmt: in [facility] for admission soon Reason For Visit [...] 07/04/18 PROGRESS Observed: 06/29/2018 Status: COMPLETED Source: [place] 5:01 PM [facility] REPOSITORY HNO ID: [id number] Author: Mani Newman Service: (none) Author Type: [...] MD PROGRESS Observed: 06/28/2018 Status: COMPLETED Source: [place] 3:30 PM [facility] REPOSITORY HNO ID: [id number] Author: Maritza Tian [facility] Service: (none) Author Type: Registered Nurse Type: Progress Notes Filed: 06/30/2018 8:13 AM Note Text: PRIMARY CARE COORDINATION FOLLOW-UP NOTE Provider Action/FYI: Hgb decreased, cannot find a previous scope record. Current med list from on your desk to review. Patient identified by name and date of . YES Spoke to Reyes at [facility]. Summary: Pt is NOT scheduled for hyperbaric treatments, but rather mist therapy- it is comparable to hydrotherapy done in physical therapy. Apparently they had talked about a local hyperbaric therapy but small unit that she would lay down for and place her leg in. These therapies are not covered by transportation. She has [place] as secondary insurance and they do not [...] Abs Lymph 1.00 - 4.00 k/uL 1.85 Chaves% % 7.4 Abs Chaves <0.87 k/uL 0.61 Eosin% % 2.4 Abs [...] 0.400 - 5.500 uU/mL 4.590 6.410 (H) [employer] plan for next outreach: Will follow up Fri Signature Maritza Howe founding partner Client Application Support Engineer Internal Medicine [facility] June 28, 2018 PROGRESS Observed: 06/28/2018 Status: COMPLETED Source: [place] 11:55 AM [facility] REPOSITORY HNO ID: [id number] Author: Maritza Howe Service: (none) Author Type: [...] <0.01 CNPTOUTREACH Observed: 06/28/2018 Status: COMPLETED Source: [place] 12:00 AM [facility] REPOSITORY Patient Outreach (INTMWS) ROSA BELTRAN ([id number]) 1935 F Date Time Provider Department 06/28/18 [...] at [facility] treatment at [facility]. Summary: Pt is NOT scheduled for hyperbaric treatments, but rather mist therapy- it is comparable to hydrotherapy done in physical therapy. Apparently they had talked about a local hyperbaric therapy but small unit that she would lay down for and place her leg in. These therapies are not covered by transportation. She has [place] as secondary insurance and they do not [...] Abs Lymph 1.00 - 4.00 k/uL 1.85 Chaves% % 7.4 Abs Chaves <0.87 k/uL 0.61 Eosin% % 2.4 Abs [...] 0.400 - 5.500 uU/mL 4.590 6.410 (H) [employer] plan for next outreach: Will follow up Fri Signature Maritza Howe RN Ambulatory Client Application Support Engineer Internal Medicine [facility] June 28, 2018 Mani Newman MD 06/30/2018 [...] 2 CBC + DIFF [SQCBCDIF] Order #: [id number] FUTURE IRON + TIBC [SQIRON] Order #: [id number] FUTURE BASIC METABOLIC PNL [SQBMP] Order #: [id number] FUTURE RETIC COUNT [SQRETIC] Order #: [id number] FUTURE VITAMIN B12 BLOOD [SQB12] Order #: [id number] FUTURE FOLATE SERUM [SQSERFOL] Order #: [id number] FUTURE Prescriptions as of 06/28/2018 Sig: MENTHOL [...] 06/30/18 PROGRESS Observed: 06/27/2018 Status: COMPLETED Source: [place] 8:10 PM [facility] REPOSITORY HNO ID: [id number] Author: Maritza Howe Service: (none) Author Type: [...] plan for visit and transportation. Maritza Howe founding partner Client Application Support Engineer Internal [facility] June 27, 2018 CBC Collected: 06/27/2018 Status: F Source: [place] 1:44 PM [facility] REPOSITORY TYPE CODE TESTS RESULT [...] CBC, PT, CMP, TSH #### [facility] [address] [place], [place] [address] #### KRYSTAL #### [facility] [address] [place] [address] [phone] PROTIME Collected: 06/27/2018 Status: F Source: [place] 1:44 PM [facility] [facility] REPOS[facility] TYPE CODE TESTS RESULT OUT OF RANGE REFERENCE UNITS LAB PSEC 9.7-13.0 sec High PT Sec 22.1 LAB INR 0.9-1.3 High PT INR 2.2 Result Comment: Vitamin K Antagonist (VKA) Therapeutic Range: INR 2 to 3 (Target INR of 2.5) Note: For patients treated with VKA drugs, such as warfarin, the [place] [employer] 2012 Guideline recommends [...] CBC, PT, CMP, TSH #### [facility] [address] [place], [place] [address] #### KRYSTAL #### [facility] [address] [place] [address] [phone] COMP METABOLIC PANEL Collected: 06/27/2018 Status: F Source: [place] 1:44 PM [facility] REPOSITORY TYPE CODE TESTS RESULT OUT OF REFERENCE UNITS RANGE LAB TP 6.3-8.0 g/dL Protein, Total 7.7 LAB ALB 3.9-4.9 g/dL Low Albumin 3.3 LAB CA 8.5-10.2 mg/dL Calcium, Total 8.8 LAB TBIL 0.2-1.3 mg/dL Bilirubin, Total 0.3 LAB ALKP 32-117 U/L Alkaline Phosphatase 69 LAB AST 13-35 U/L AST 28 LAB GLU 74-99 mg/dL Glucose 78 Result Comment: The [place] [employer] (ADA) provides guidance for cutoff [...] Standards of Medical Care in Diabetes 2016, [place] [employer]. Diabetes Care. 2016.39(Suppl 1). LAB [...] CBC, PT, CMP, TSH #### [facility] [address] [place] [address] #### KRYSTAL #### [address] [address] [phone] TSH Collected: 06/27/2018 Status: F Source: [place] 1:44 PM [facility] REPOSITORY TYPE CODE TESTS RESULT OUT OF RANGE REFERENCE UNITS LAB TSH 0.400-5.500 uU/mL High TSH 6.410 Performed By: #### CBC, PT, CMP, TSH #### [place] [address] [place] [address] #### KRYSTAL #### [address] [address] [phone] GABAPENTIN Collected: 06/27/2018 Status: F Source: [place] 1:44 PM [facility] REPOSITORY TYPE CODE TESTS RESULT OUT OF REFERENCE UNITS RANGE LAB KRYSTAL 2.0-20.0 ug/mL Gabapentin 6.8 Result Comment: (NOTE) INTERPRETIVE INFORMATION: Gabapentin Therapeutic Range: 2 - 20 ug/mL Toxic: Not well established Pharmacokinetics of gabapentin vary widely among patients, particularly those with compromised renal function. Adverse effects may include somnolence, dizziness, ataxia, and fatigue. Performed by [facility], [address] [place] [address] [id number] [email or web address], Christiano Hussein MD, Lab. Director Performed By: #### CBC, PT, CMP, TSH #### [facility] [address] [place] [address] #### KRYSTAL #### [address] [address] [phone] PROGRESS Observed: 06/27/2018 Status: COMPLETED Source: [place] 1:17 PM [facility] REPOSITORY HNO ID: [id number] Author: Mani Newman Service: (none) Author Type: [...] and Zyvox to cephalexin due to cost. mortgage loan coordinator was here and trying to coordinate [...] Disease), Stage Iii (Hcc) Peripheral Vascular Disease ([facility]) Current Outpatient Prescriptions: ergocalciferol, vitamin D2, [...] MD PROGRESS Observed: 06/27/2018 Status: COMPLETED Source: [place] 1:10 PM [facility] REPOSITORY O ID: [id number] Author: Ty Beckman Service: (none) Author Type: Physician Type: Progress Notes Filed: 06/27/2018 1:36 PM Note Text: Ty Beckman DPM Department of Podiatry [address] [place] [address] Dept: [phone] Dept Nail Care SUBJECTIVE: Follow up office [...] DPM CNOV Observed: 06/27/2018 Status: COMPLETED Source: [place] 12:40 PM [facility] REPOSITORY Office Visit (PODIWS) ROSA BELTRAN ([id number]) 1935 F Date Time Provider Department 06/27/18 12:40 PM TY BECKMAN During your visit today, we recorded the following information about you: Ty Beckman DPM 06/27/2018 1:36 PM Signed Ty Beckman DPM Department of Podiatry [address] [facility] [address] Dept: [phone] Dept Nail Care SUBJECTIVE: Follow up office [...] 06/27/18 CNOV Observed: 06/27/2018 Status: COMPLETED Source: [place] 11:40 AM [facility] REPOSITORY Office Visit (INTMWS) ROSA BELTRAN ([id number]) 1935 F Date Time Provider Department 06/27/18 [...] and Zyvox to cephalexin due to cost. mortgage loan coordinator was here and trying to coordinate [...] Newman MD Referring Provider: BRODY SWEET CHI [[id number]] Allergies As of Date: 06/27/2018 (No Known [...] disease (HCC) [I73.9] Order(s):CBC [SQCBC] Order #: [id number] FUTURE COMP METABOLIC PANEL [SQCMP] Order #: [id number] FUTURE TSH BLD [SQTSH] Order #: [id number] FUTURE GABAPENTIN/NEURONTIN [SQGABA] Order #: [id number] FUTURE PROTHROMBIN TIME/PT [SQPT] Order #: [id number] FUTURE Prescriptions as of 06/27/2018 Sig: VITAMIN [...] More... CKD (chronic kidney disease), stage III ([facility]) [*INVALID FOR* Priority: D Hyperkalemia [E87.5] INVALID [...] 06/27/18 LOITOUTREACH Observed: 06/27/2018 Status: COMPLETED Source: [place] 12:00 AM [facility] REPOSITORY Patient Outreach (INTMWS) DEVINROSA Giselle ([id number]) 1935 F Date Time Provider Department 06/27/18 [...] visit and transportation. Maritza Howe RN Ambulatory Client Application Support Engineer Internal Medicine [facility] June 27, 2018 Maritza Tian RN 06/28/2018 [...] 06/28/18 PROGRESS Observed: 06/22/2018 Status: COMPLETED Source: [place] 10:52 AM [facility] REPOSITORY HNO ID: [id number] Author: Tiffanie ParksRn) ELENA Humphrey Service: (none) Author Type: Registered Nurse Type: Progress Notes Filed: 07/03/2018 8:57 PM Note Text: UNIVERSAL PROTOCOL / SAFETY CHECKLIST Procedure to be performed: Sharp debridement of bilateral lower leg wounds Sign in Communication: 1049 Time Out: Team Confirms the Correct Patient, Correct Procedure, Correct Site and Site Marking, Correct Position (if applicable), Prep and Dry Time (if applicable). Time: 1100 Affirmation of Time Out: Yes Sign Out Discussion: Procedure completed and the patient tolerated it well without complications. Tiffanie Humphrey RN PROGRESS Observed: 06/22/2018 Status: COMPLETED Source: [place] 10:00 AM [facility] REPOSITORY HNO ID: [id number] Author: Luis Simons Service: (none) Author Type: Nurse Practitioner Type: Progress Notes Filed: 09/13/2018 12:41 PM Note Text: DATE OF VISIT: 06/22/2018 REASON FOR VISIT: Non-healing lower extremity wound. HISTORY OF PRESENT ILLNESS: Rosa Beltran is a 81 year old female who presents to the [facility] for further evaluation [...] followed by Dr. Jaskaran Chance at the [facility]. It was felt that her home support system was inadequate and that she may not have the resources in her home environment to appropriately care for her needs. In this regard, a social worker palliative care consultation had been recommended on several occassions, but patient apparently insisted on remaining in her home environment despite that there was thought that is may be less than optimal. The patient is here at the [facility] for a second opinion regarding management of the abovementioned bilateral lower extremity wounds. She offers no other complaints. She denies any fevers, chills, wound-related pain or other related symptoms. INTERVAL HISTORY: 05/19/18 Patient presents for a routine follow- up. She was recently admitted to [facility] in 03/2018 with right leg wound infection. [...] with hypoxia (HCC) 09/30/2017 - Atrial fibrillation ([facility]) - CAD (coronary artery disease) Dr. Brenda [...] 10/08/2016 - COPD (chronic obstructive pulmonary disease) ([facility]) - Depressive disorder 12/29/2016 - Disruption of surgical wound 09/2015 Right tibia - Dorsalgia 12/29/2016 - Dyslipidemia - Gastric bypass status for obesity 12/29/2016 - Gastroesophageal reflux disease without esophagitis 10/08/2016 - HTN (hypertension) - Muscular weakness 12/29/2016 - Primary osteoarthritis involving multiple joints 12/29/2016 - Pure hypercholesterolemia - Rheumatoid arthritis ([facility]) 2007 - Sleep apnea - Stented coronary [...] tibia - TOTAL KNEE REPLACEMENT Right 2003 [facility] Gen. - TOTAL KNEE REPLACEMENT Left 2004 [facility] Gen. MEDICATIONS ergocalciferol, vitamin D2, [...] Rubor of Dependency: Negative (Y) Positive (N) [place] Examination: Comments: +3 edema BLEs Measurements: Right Calf: 60 cm Right Ankle: 34.5 cm Left Calf: 54 cm Left Ankle: 37 cm Neuro: Alert AND oriented x3, ENGINE RESEARCH ENGINEER II-XII grossly intact, reflexes 2+ and symmetric, [...] No acute fracture or bony destruction. ? Credit Professional: PSCB ? Transcribe Date/Time: Oct 14 2017 [...] No acute fracture or bony destruction. ? Credit Professional: PSCB ? Transcribe Date/Time: Oct 14 2017 [...] vasospasm, small vessel disease of the foot. Credit Professional: DWIGHT ? Transcribe Date/Time: Mar 21 2018 [...] and Edge attached to base Periwound Tissue: [place], dry and intact, No fluctuance, induration or [...] and Edge attached to base Periwound Tissue: [place], dry and intact, No fluctuance, induration or [...] -- Week 5 Wound Bed (Post-debridement): 100% [place] % of Healthy tissue: Undermining: No Tunneling: No Tendon/bone exposed: NO Wound Edge/Margins: Well-defined wound edges and Edge attached to base Periwound Tissue: [place], dry and intact, No fluctuance, induration or [...] any pressure areas including wound opening Negative [id number] mmhg Continuous pressure x 48 hours then, [...] our RN. Luis Simons APRN.LOI Charge Capture: [id number]; [id number] (a52) CNOV Observed: 06/22/2018 Status: COMPLETED Source: [place] 10:00 AM [facility] REPOSITORY Office Visit (PLWDMR) ROSA BELTRAN ([id number]) 1935 F Date Time Provider Department 06/22/18 10:00 AM LUIS SIMONS, (LINOTYPER) PLWDMR During your visit today, we recorded the following information about you: Temperature Pulse Respiration Blood pressure 98.8 degrees 75/minute 20/minute 134/68 Luis Simons APRN.LOI 09/13/2018 12:41 PM Addendum DATE OF VISIT: 06/22/2018 REASON FOR VISIT: Non-healing lower extremity wound. HISTORY OF PRESENT ILLNESS: Rosa Beltran is a 81 year old female who presents to the [facility] for further evaluation [...] followed by Dr. Jaskaran Chance at the [facility]. It was felt that her home support system was inadequate and that she may not have the resources in her home environment to appropriately care for her needs. In this regard, a social worker palliative care consultation had been recommended on several occassions, but patient apparently insisted on remaining in her home environment despite that there was thought that is may be less than optimal. The patient is here at the [facility] for a second opinion regarding management of the abovementioned bilateral lower extremity wounds. She offers no other complaints. She denies any fevers, chills, wound-related pain or other related symptoms. INTERVAL HISTORY: 05/19/18 Patient presents for a routine follow- up. She was recently admitted to [facility] in 03/2018 with right leg wound infection. [...] 10/08/2016 - COPD (chronic obstructive pulmonary disease) ([facility]) - Depressive disorder 12/29/2016 - Disruption of surgical wound 09/2015 Right tibia - Dorsalgia 12/29/2016 - Dyslipidemia - Gastric bypass status for obesity 12/29/2016 - Gastroesophageal reflux disease without esophagitis 10/08/2016 - HTN (hypertension) - Muscular weakness 12/29/2016 - Primary osteoarthritis involving multiple joints 12/29/2016 - Pure hypercholesterolemia - Rheumatoid arthritis ([facility]) 2007 - Sleep apnea - Stented coronary [...] tibia - TOTAL KNEE REPLACEMENT Right 2003 [facility] Gen. - TOTAL KNEE REPLACEMENT Left 2004 [facility] Gen. MEDICATIONS ergocalciferol, vitamin D2, [...] Rubor of Dependency: Negative (Y) Positive (N) [place] Examination: Comments: +3 edema BLEs Measurements: Right Calf: 60 cm Right Ankle: 34.5 cm Left Calf: 54 cm Left Ankle: 37 cm Neuro: Alert AND oriented x3, ENGINE RESEARCH ENGINEER II-XII grossly intact, reflexes 2+ and symmetric, [...] No acute fracture or bony destruction. ? Credit Professional: DWIGHT ? Transcribe Date/Time: Oct 14 2017 [...] No acute fracture or bony destruction. ? Credit Professional: DWIGHT ? Transcribe Date/Time: Oct 14 2017 [...] vasospasm, small vessel disease of the foot. Credit Professional: DWIGHT ? Transcribe Date/Time: Mar 21 2018 [...] and Edge attached to base Periwound Tissue: [place], dry and intact, No fluctuance, induration or [...] and Edge attached to base Periwound Tissue: [place], dry and intact, No fluctuance, induration or [...] -- Week 5 Wound Bed (Post-debridement): 100% [place] % of Healthy tissue: Undermining: No Tunneling: No Tendon/bone exposed: NO Wound Edge/Margins: Well-defined wound edges and Edge attached to base Periwound Tissue: [place], dry and intact, No fluctuance, induration or [...] any pressure areas including wound opening Negative [id number] mmhg Continuous pressure x 48 hours then, [...] our RN. Luis Simons APRN.LOI Charge Capture: [id number]; [id number] ([id number]) Luis Simons APRN.LOI 09/13/2018 12:46 PM [...] normal saline and dressings were applied. Tiffanie Hupmhrey RN, RN 06/22/2018 11:44 AM Signed Nursing [...] any pressure areas including wound opening Negative [id number] mmhg Continuous pressure x 48 hours then, [...] following changes to the Wound Center at [phone] or go to the Emergency Department: ? [...] bilateral lower leg wounds Sign in Communication: 7735 Time Out: Team Confirms the Correct Patient, [...] any pressure areas including wound opening Negative [id number] mmhg Continuous pressure x 48 hours then, [...] following changes to the Wound Center at [phone] or go to the Emergency Department: ? [...] 07/03/18 PROCEDURE Observed: 06/22/2018 Status: COMPLETED Source: [place] 10:00 AM [facility] REPOSITORY HNO ID: [id number] Author: Luis Simons Service: (none) Author Type: Nurse Practitioner Type: Procedures Filed: 09/13/2018 11:03 AM Note Text: (No note.) PROCEDURE Observed: 06/22/2018 Status: COMPLETED Source: [place] 10:00 AM [facility] REPOSITORY HNO ID: [id number] Author: Luis Simons Service: (none) Author Type: [...] applied. PROGRESS Observed: 06/21/2018 Status: COMPLETED Source: [place] 12:22 PM [facility] REPOSITORY HNO ID: [id number] Author: Volodymyr Gilbert Cma Service: (none) Author Type: (none) Type: Progress Notes Filed: 06/21/2018 12:24 PM Note Text: See discharge note. Rosa discharged 07/21/18 from [facility]. PROGRESS Observed: 06/21/2018 Status: COMPLETED Source: [place] 12:18 PM [facility] REPOSITORY HNO ID: [id number] Author: Volodymyr Gilbert Cma Service: (none) Author [...] her. PROGRESS Observed: 06/21/2018 Status: COMPLETED Source: [place] 9:12 AM [facility] REPOSITORY HNO ID: [id number] Author: Volodymyr Gilbert Cma Service: (none) Author Type: (none) Type: Progress Notes Filed: 06/21/2018 9:13 AM Note Text: Spoke with KUMAR Paul (jessica is out today) who states she'll check on her status and get back to me. ANA Observed: 06/21/2018 Status: COMPLETED Source: [place] 12:00 AM [facility] REPOSITORY Patient Outreach (INTMWS) ROSA BELTRAN ([id number]) 1935 F Date Time Provider Department 06/21/18 MARITZA HOWE (RN) INTMWS During your visit today, we recorded the following information about you: Volodymyr Gilbert Technology Professional 06/30/2018 8:14 AM Signed TRANSITION CARE MANAGEMENT (TCM) DISCHARGE FROM POST ACUTE FACILITY POST ACUTE TRANSFER SUMMARY: - Spoke to: Esperanza HEATH ([facility] KUMAR who I'd been in contact with [...] TIME W/INR Collected: 06/19/2018 Status: F Source: [place] 5:20 AM [facility] REPOSITORY TYPE CODE TESTS RESULT OUT OF RANGE REFERENCE UNITS LAB L300.4150 11.7-14.9 SECONDS High PROTIME 25.7 LAB L300.4200 Normal INR 2.3 Performed By: #### L300.3900 #### [facility] [address] [place], [place], [address] CBC W/DIFF, AUTOMATED Collected: 06/16/2018 Status: F Source: [place] 5:10 AM [facility] REPOSITORY TYPE CODE TESTS RESULT OUT OF [...] Lymph 1.48 Performed By: #### L100.0100 #### [facility] [address] [place], [place], [address] BASIC METABOLIC Collected: 06/16/2018 Status: F Source: [place] PROFILE ([facility]) 5:10 AM [facility] REPOSITORY TYPE CODE TESTS RESULT OUT OF [...] GAP 4 Performed By: #### L500.2500 #### [facility] [address] [place], [address] PROTHROMBIN TIME W/INR Collected: 06/15/2018 Status: F Source: [place] 5:20 AM [facility] REPOSITORY TYPE CODE TESTS RESULT OUT OF RANGE REFERENCE UNITS LAB L300.4150 11.7-14.9 SECONDS High PROTIME 32.8 LAB L300.4200 Normal INR 3.2 Performed By: #### L300.3900 #### [facility] [address] [place], [address] DISCHARGE SUMMARY Observed: 06/14/2018 Status: F Source: [place] 7:48 PM [facility] REPOSITORY [facility] Medical Records Department [address] [place] [address] Discharge Summary 06/14/181945 MR#: [id number] Acct: [id number] Name: ROSA BELTRAN Rep #: [id number] : 1935 82 From: Brody Sweet MD PCP: Mani Newman MD Status: ADM IN Location: [place] [address]1 Discharge Date and Diagnosis Date of Admission: [...] Creat Clear Calc 31.49 Consultations 05/25/18 Consult: Onc/Wound/brake rider Routine Comment: Reason for Consult:: RLE Stasis [...] Status: F Source: [place] 7:48 PM [facility] REPOSITORY [facility] Medical Records Department [address] [address] Home Health Progress Note Vxhg-cu-Heag Encounter Encounter Date: 06/14/181947 MR#: [id number] Acct: [id number] Name: ROSA BELTRAN Rep #: [id number] : 1935 82 From: Brody Sweet MD PCP: Mani Newman MD Status: ADM IN Location: [place] [address] Home Health Note - Plan Overview of [...] DISCHARGE INSTRUCTION Observed: 06/14/2018 Status: F Source: [place] 7:46 PM [facility] REPOSITORY [facility] Medical Records Department [address] [place] [address] Instructions for Home/Discharge Instructions 06/14/181942 MR#: [id number] Acct: [id number] Name: ROSA BELTRAN Rep #: [id number] : 1935 82 From: Brody Sweet MD [...] When: 1 week. Proposed Discharge Date: 06/19/18 06/14/18 1946 <Electronically signed by Brody Sweet MD> Date Brody Sweet MD CC: Carla Flor MD; Mani Newman MD MRSA WOUND DNA BY Collected: 06/14/2018 Status: F Source: [place] PCR 1:30 PM [facility] REPOSITORY Order Comment: Specimen Source? RLE wound TYPE CODE TESTS RESULT OUT OF REFERENCE UNITS RANGE LAB L8200.1100 Negative High MRSA POSITIVE RESULT Result Comment: RESULTS CALLED TO [facility] 06/14/18 1526 [address] Bray. REPORT READ BACK BY SAME . SENT TO [facility] 06-14-18 AT 1527PM LAB L8200.1150 Negative High SA RESULT POSITIVE Performed By: #### L8200.1075 #### [facility] [address] [place], [address] Observed: 06/14/2018 Status: F Source: [place] CULTURE, WOUND 1:30 PM [facility] REPOSITORY Comments: RLE drainage Gram Stain Gram Stain No White Blood Cells Rare Gram negative rods Wound Culture #2 Stenotrophomonas maltophilia Additional sensitivity performed at [facility]. Antibiotic Result Ceftazidime R Chloramphenicol R Levofloxacin R Trimethoprim/Sulfa R Ticar/Clav = 64 ug/ml INTERMEDIATE R = Resistant I = Intermediate S = Susceptible TESTING PERFORMED AT [facility]. ORIGINAL REPORT ON FILE IN LAB [...] >=320 R (NF) indicates non-formulary drug at [facility]. Approval by Infectious Disease Specialist required before non-formulary drugs may be ordered and/or dispensed. Stenotrophomonas maltophilia: REACTION Levofloxacin $ >=8 R Trimethoprim/Sulfametho $ >=320 R (NF) indicates non-formulary drug at [facility]. Approval by Infectious Disease Specialist required before non-formulary drugs may be ordered and/or dispensed. Performed By: #### M100.1400 #### [facility] [address] [place], [address] PROGRESS Observed: 06/14/2018 Status: COMPLETED Source: [place] 8:19 AM [facility] REPOSITORY HNO ID: [id number] Author: Volodymyr Gilbert Cma Service: (none) Author Type: (none) Type: Progress Notes Filed: 06/14/2018 8:21 AM Note Text: Left message for KUMAR Lopez to return call #[phone] BASIC METABOLIC Collected: 06/13/2018 Status: F Source: [place] PROFILE (BMP) 5:20 AM [facility] REPOSITORY TYPE CODE TESTS RESULT OUT OF [...] GAP 7 Performed By: #### L500.2500 #### [facility] [address] [place], [place], [address] PROTHROMBIN TIME W/INR Collected: 06/12/2018 Status: F Source: [place] 5:15 AM [facility] REPOSITORY TYPE CODE TESTS RESULT OUT OF RANGE REFERENCE UNITS LAB L300.4150 11.7-14.9 SECONDS High PROTIME 31.2 LAB L300.4200 Normal INR 3.0 Performed By: #### L300.3900 #### [facility] [address] [place], [place], [address] BASIC METABOLIC Collected: 06/12/2018 Status: F Source: [place] PROFILE (BMP) 5:15 AM [facility] REPOSITORY TYPE CODE TESTS RESULT OUT OF [...] GAP 9 Performed By: #### L500.2500 #### [facility] [address] [place], [address] BASIC METABOLIC Collected: 06/10/2018 Status: F Source: [place] PROFILE (BMP) 7:38 AM [facility] REPOSITORY TYPE CODE TESTS RESULT OUT OF [...] GAP 9 Performed By: #### L500.2500 #### [facility] [address] [place], [place], [address] PROTHROMBIN TIME W/INR Collected: 06/09/2018 Status: F Source: [place] 8:45 AM [facility] REPOSITORY TYPE CODE TESTS RESULT OUT OF RANGE REFERENCE UNITS LAB L300.4150 11.7-14.9 SECONDS High PROTIME 33.5 LAB L300.4200 Normal INR 3.3 Performed By: #### L300.3900 #### [facility] [address] [facility] [address] [place], [place], [address] CBC W/DIFF, AUTOMATED Collected: 06/09/2018 Status: F Source: [place] 5:15 AM [facility] REPOSITORY TYPE CODE TESTS RESULT OUT OF [...] Lymph 0.89 Performed By: #### L100.0100 #### [facility] [address] [place], [address] BASIC METABOLIC Collected: 06/09/2018 Status: F Source: [place] PROFILE (BMP) 5:15 AM [facility] REPOSITORY TYPE CODE TESTS RESULT OUT OF [...] GAP 8 Performed By: #### L500.2500 #### [facility] [address] [place], [place] [address]guera. [place], [address] BASIC METABOLIC Collected: 06/08/2018 Status: F Source: [place] PROFILE ([facility]) 10:46 PM [facility] REPOSITORY TYPE CODE TESTS RESULT OUT OF [...] GAP 5 Performed By: #### L500.2500 #### [facility] [address] [place], [place], [address] CBC W/DIFF, AUTOMATED Collected: 06/08/2018 Status: F Source: [place] 10:46 PM [facility] REPOSITORY TYPE CODE TESTS RESULT OUT OF [...] Lymph 2.03 Performed By: #### L100.0100 #### [facility] [address] [place], [place], [address] URINALYSIS, COMPLETE Collected: 06/08/2018 Status: F Source: [place] 10:40 PM [facility] REPOSITORY Order Comment: How was Urine Obtained? [...] URINE SEEN Performed By: #### L400.0001 #### [facility] [address] [place], [address] Observed: 06/08/2018 Status: F Source: [place] CULTURE, URINE 10:40 PM [facility] REPOSITORY Urine Culture Culture exhibits no growth. Performed By: #### M100.0650 #### [facility] [address] [place] [place], [address] CHEST 1 VIEW Observed: 06/08/2018 Status: F Source: VAL[place] (PORTABLE) 10:08 PM [facility] REPOSITORY [facility] Imaging Services [address] [place] [address] Chest 1 View (Portable) MR#: [id number] Acct: [id number] Name: ROSA BELTRAN Rep #: [id number] : 1935 F 82 From: Javier Serrano MD PCP: Mani Newman MD Status: ADM IN Study: Chest 1 View (Portable) Date of Exam: 06/08/18 Exam# [id number] Ordering Dr: Brody Sweet MD STUDY: X-RAY [...] CC: Brody Sweet MD; Mani Newman MD Credit Professional: Signed ABDOMEN SINGLE VIEW Observed: 06/08/2018 Status: F Source: [place]E (PORTABLE) 10:08 PM [facility] REPOSITORY [facility] Imaging Services [address] [place] [address] Abdomen Single View (Portable) MR#: [id number] Acct: [id number] Name: ROSA BELTRAN Rep #: [id number] : 1935 F 82 From: Javier Serrano MD PCP: Mani Newman MD Status: ADM IN Study: Abdomen Single View (Portable) Date of Exam: 06/08/18 Exam# [id number] Ordering Dr: Brody Sweet MD ADDENDUM by [...] CC: Brody Sweet MD; Mani Newman MD Credit Professional: Signed PROTHROMBIN TIME W/INR Collected: 06/08/2018 Status: F Source: [place] 5:10 AM [facility] REPOSITORY TYPE CODE TESTS RESULT OUT OF RANGE REFERENCE UNITS LAB L300.4150 11.7-14.9 SECONDS High PROTIME 30.9 LAB L300.4200 Normal INR 3.0 Performed By: #### L300.3900 #### [facility] [address] [facility] [place], [address] 12 LEAD ELECTROCARDIOGRAM Observed: 06/07/2018 Status: F Source: [place] 11:22 AM [facility] REPOSITORY [facility] Cardiovascular Services [address] [place] [address] 12 Lead EKG 06/04/181913 MR#: [id number] Acct: [id number] Name: ROSA BELTRAN Rep #: [id number] : 1935 82 From: Maicol Hawk MD [...] Abnormal ECG Confirmed by MAICOL HAWK MD ([id number]), associate entertainment editor LAURA BUENROSTRO ([id number]) on 06/07/2018 11:22:05 AM Referred By: KEE Confirmed By:MAICOL HAWK MD 06/07/18 1122 Date Maicol Hawk MD CC: Jay Nicholas MD; Mani Newman MD Signed 12 LEAD ELECTROCARDIOGRAM Observed: 06/07/2018 Status: F Source: [place] 10:08 AM [facility] REPOSITORY [facility] Cardiovascular Services [address] [place] [address] 12 Lead EKG 06/05/18 1307 MR#: [id number] Acct: [id number] Name: ROSA BELTRAN Rep #: [id number] : 1935 82 From: Maicol Hawk MD Attending Dr: Kee RUIZ,Brody Santiago Status: ADM IN Ordering Dr: Brody Sweet MD Date: 06/04/18 Location: TCU Sex: F N Admitted: 05/25/18 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 Rate : 068 BPM Atrial Rate : 059 BPM P-R Int : 000 ms QRS Dur : 098 ms QT Int : 362 ms P-R-T Axes : 000 033 012 degrees QTc Int : 384 ms Atrial fibrillation Low voltage QRS (LIMB LEADS) Abnormal ECG Confirmed by MAICOL HAWK MD ([id number]), associate entertainment editor LAURA BUENROSTRO ([id number]) on 06/07/2018 10:08:05 AM Referred By: CARMENCITA Confirmed By:MAICOL HAWK MD 06/07/18 1008 Date Maicol Hawk MD CC: Brody Sweet MD; Mani Newman MD Signed PROGRESS Observed: 06/07/2018 Status: COMPLETED Source: [place] 10:06 AM [facility] REPOSITORY HNO ID: [id number] Author: Volodymyr Gilbert Edgard Service: (none) Author Type: (none) Type: Progress Notes Filed: 06/07/2018 10:06 AM Note Text: jessica returned my call and lmom. She states Harts is still at SNF and no discharge planning in place as of yet. PROGRESS Observed: 06/07/2018 Status: COMPLETED Source: [place] 8:59 AM [facility] REPOSITORY HNO ID: [id number] Author: Volodymyr Gilbert Cma Service: (none) Author Type: (none) Type: Progress Notes Filed: 06/07/2018 9:00 AM Note Text: Left message for SW to return call #[phone] EMERGENCY DEPARTMENT Observed: 06/05/2018 Status: F Source: [place] SUMMARY 3:47 PM [facility] REPOSITORY [facility] Medical Records Department [address] [place] [address] Emergency Department Summary 06/05/18 1329 MR#: [id number] Acct: [id number] Name: ROSA BELTRAN Rep #: [id number] : 1935 82 From: Jay Nicholas MD [...] pain resolved This note was generated with [employer] dictation software. It may contain incorrect words, [...] your Primary Care Provider. Call [facility] ([phone]) or report to the closest Emergency Room. Call 911 if necessary. 06/05/181546 <Electronically signed by Jay Nicholas MD> Date Jay Nicholas MD Cosigner Signature (If Indicated): Date CC: Mani Newman MD DISCHARGE INSTRUCTION Observed: 06/05/2018 Status: F Source: [place] 3:47 PM [facility] REPOSITORY [facility] Medical Records Department [address] [address] Discharge Instruction 06/05/181546 MR#: [id number] Acct: [id number] Name: ROSA BELTRAN Rep #: [id number] : 1935 82 From: Jay Nicholas MD [...] your Primary Care Provider. Call [facility] ([phone]) or report to the closest Emergency Room. Call 911 if necessary. 06/05/18 1547 <Electronically signed by Jay Nicholas MD> Date Jay Nicholas MD Cosigner Signature (If Indicated): Date CC: Mani Newman MD BLOOD GASES BY CPS Collected: 06/05/2018 Status: F Source: [place] 2:03 PM [facility] REPOSITORY TYPE CODE TESTS RESULT OUT OF [...] SO2 ISTAT Performed By: #### L9000.0800 #### [facility] Point of Care [address] [address] CHEST 1 VIEW Observed: 06/05/2018 Status: F Source: [place] (PORTABLE) 1:25 PM [facility] REPOSITORY [facility] Imaging Services [address] [place] [address] Chest 1 View (Portable) MR#: [id number] Acct: [id number] Name: ROSA BELTRAN Rep #: [id number] : 1935 F 82 From: Chintan Trinidad MD PCP: Mani Newman MD Status: REG ER Study: Chest 1 View (Portable) Date of Exam: 06/05/18 Exam# [id number] Ordering Dr: Jay Nicholas MD STUDY: X-RAY [...] CC: Jay Nicholas MD; Mani Newman MD Credit Professional: Signed CBC W/DIFF, AUTOMATED Collected: 06/05/2018 Status: F Source: [place] 1:00 PM [facility] REPOSITORY TYPE CODE TESTS RESULT OUT OF [...] Lymph 1.94 Performed By: #### L100.0100 #### [facility] [address], [address] BASIC METABOLIC Collected: 06/05/2018 Status: F Source: [place] PROFILE ([facility]) 1:00 PM [facility] REPOSITORY TYPE CODE TESTS RESULT OUT OF [...] 4 Performed By: #### L500.2500, L501.4010 #### [facility] [address] [facility] [place], [place], [address] TROPONIN-I Collected: 06/05/2018 Status: F Source: [place] 1:00 PM [facility] REPOSITORY TYPE CODE TESTS RESULT OUT OF RANGE REFERENCE UNITS LAB L501.4010 <0.045 ng/mL Normal < 0.015 TROPONIN-I Result Comment: TROPONIN-I EXPECTED VALUES <0.045 Negative 0.045 - 0.590 Consistent with Cardiac Damage > OR = 0.600 Critical Value Not every elevated troponin is indicative of MO. These values should be used with clinical judgement in examining the patient's clinical picture for diagnosis. To establish a diagnosis of MO versus myocardial injury, there must be a demonstrated rise and/or fall in the troponin values, in addition to ischemic symptoms, EKG changes, new regional wall motion abnormality, and/or angiographical evidence. PLEASE NOTE: REFERENCE RANGES EDITED 18 Performed By: #### L500.2500, L501.4010 #### [facility] [address], [address] BEDSIDE GLUCOSE Collected: 06/05/2018 Status: F Source: [place] 12:48 PM [facility] REPOSITORY TYPE CODE TESTS RESULT OUT OF REFERENCE UNITS RANGE LAB L501.080 70-110 mg/dL High BEDSIDE GLU 116 Result Comment: MANAGEMENT OF PATIENT CARE PER NURSING PROTOCOL Performed By: #### L501.080 #### [facility] Point of Care [address] 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 Sweet History of Present Illness: The patient is a 82 year old F with chronic venous stasis transferred to TCU from [place] due to nonhealing RLE ulcer. Reports ulcer [...] 06/05/2018 Status: F Source: [place] 5:47 AM [facility] REPOSITORY TYPE CODE TESTS RESULT OUT OF RANGE REFERENCE UNITS LAB L300.4150 11.7-14.9 SECONDS High PROTIME 24.9 LAB L300.4200 Normal INR 2.2 Performed By: #### L300.3900 #### [facility] [address] [place], [address] BASIC METABOLIC Collected: 06/03/2018 Status: F Source: [place] PROFILE (BMP) 7:21 AM [facility] REPOSITORY TYPE CODE TESTS RESULT OUT OF [...] GAP 5 Performed By: #### L500.2500 #### [facility] [address] [place], [place], [address] CBC W/DIFF, AUTOMATED Collected: 06/02/2018 Status: F Source: [place] 5:10 AM [facility] REPOSITORY TYPE CODE TESTS RESULT OUT OF [...] Lymph 1.66 Performed By: #### L100.0100 #### [facility] [address] [place], [place], [address] BASIC METABOLIC Collected: 06/02/2018 Status: F Source: [place] PROFILE (BMP) 5:10 AM [facility] REPOSITORY TYPE CODE TESTS RESULT OUT OF [...] GAP 6 Performed By: #### L500.2500 #### [facility] [address] [place], [address] URINALYSIS, COMPLETE Collected: 06/01/2018 Status: F Source: [place] 4:45 PM [facility] REPOSITORY Order Comment: Order Date: 06/01/18 How [...] Normal AMORPHOUS Performed By: #### L400.0001 #### [facility] [address] [place], [place], [address] Observed: 06/01/2018 Status: F Source: [place] CULTURE, URINE 4:45 PM [facility] REPOSITORY Order Date: 06/01/18 Urine Culture ORGANISM 1: Proteus mirabilis [place] Count >100,000 Proteus mirabilis: REACTION Amoxacillin/Clavulanic Acid [...] >=320 R (NF) indicates non-formulary drug at [facility]. Approval by Infectious Disease Specialist required before non-formulary drugs may be ordered and/or dispensed. Performed By: #### M100.0650 #### [facility] [address], [address] PROTHROMBIN TIME W/INR Collected: 06/01/2018 Status: F Source: [place] 5:05 AM [facility] REPOSITORY TYPE CODE TESTS RESULT OUT OF RANGE REFERENCE UNITS LAB L300.4150 11.7-14.9 SECONDS High PROTIME 20.9 LAB L300.4200 Normal INR 1.8 Performed By: #### L300.3900 #### [facility] [address], [address] Observed: 05/31/2018 Status: F Source: [place] CULTURE, DEEP WOUND 1:30 PM [facility] REPOSITORY Gram Stain Gram Stain 2+ Red [...] >=320 R (NF) indicates non-formulary drug at [facility]. Approval by Infectious Disease Specialist required before non-formulary drugs may be ordered and/or dispensed. Burkholderia cepacia: REACTION Ceftazidime *NF >=64 R Ceftriaxone $ >=64 R Ciprofloxacin $ <=0.25 S Gentamicin $ <=1 S Imipenem *NF 1 S Levofloxacin $ 2 S Piperacillin/Tazobactam $$ >=128 R Tobramycin $ <=1 S Trimethoprim/Sulfametho $ >=320 R (NF) indicates non-formulary drug at [facility]. Approval by Infectious Disease Specialist required [...] <=0.5 S (NF) indicates non-formulary drug at [facility]. Approval by Infectious Disease Specialist required before non-formulary drugs may be ordered and/or dispensed. * CLSI guidelines does not recommend testing of cephalosporins. This interpretation is deduced from Beta-lactam/penicillin results. Cult, Anaerobic No anaerobic bacteria isolated. Performed By: #### M100.1500 #### [facility] [address] [place], [place], [address] PROGRESS Observed: 05/31/2018 Status: COMPLETED Source: [place] 9:19 AM [facility] REPOSITORY O ID: [id number] Author: Volodymyr Gilbert [facility] Service: (none) Author Type: (none) Type: [...] place. PROGRESS Observed: 05/31/2018 Status: COMPLETED Source: [place] 9:04 AM [facility] REPOSITORY HNO ID: [id number] Author: Volodymyr Gilbert [facility] Service: (none) Author Type: (none) Type: Progress Notes Filed: 05/31/2018 9:07 AM Note Text: Called and lmom for Jessica to return my call if she has any updates/discharge planning for Harts. PROTHROMBIN TIME W/INR Collected: 05/29/2018 Status: F Source: [place] 5:20 AM [facility] REPOSITORY TYPE CODE TESTS RESULT OUT OF RANGE REFERENCE UNITS LAB L300.4150 11.7-14.9 SECONDS High PROTIME 20.7 LAB L300.4200 Normal INR 1.8 Performed By: #### L300.3900 #### [facility] [address] [place], [address] PROGRESS Observed: 05/26/2018 Status: COMPLETED Source: [place] 11:12 AM [facility] REPOSITORY HNO ID: [id number] Author: Volodymyr Gilbert Cma Service: (none) Author Type: (none) Type: Progress Notes Filed: 05/26/2018 11:13 AM Note Text: Will call [facility] next week for patient update/discharge planning. PROGRESS Observed: 05/26/2018 Status: COMPLETED Source: [place] 10:49 AM [facility] REPOSITORY HNO ID: [id number] Author: Maritza Tian agatha Service: (none) Author Type: Registered Nurse Type: Progress Notes Filed: 05/26/2018 11:13 AM Note Text: TRANSITION CARE MANAGEMENT (TCM) DISCHARGE TO POST ACUTE FACILITY POST ACUTE TRANSFER SUMMARY: -Pt discharged from F on 05/25/18. -Post Acute Facility Admitted to [facility] -Admitted for: Ulcer of ankle, right, with fat layer exposed (HCC) PROTHROMBIN TIME W/INR Collected: 05/26/2018 Status: F Source: [place] 5:05 AM [facility] REPOSITORY TYPE CODE TESTS RESULT OUT OF RANGE REFERENCE UNITS LAB L300.4150 11.7-14.9 SECONDS High PROTIME 19.9 LAB L300.4200 Normal INR 1.7 Performed By: #### L300.3900 #### [facility] [address] [place], [address] BASIC METABOLIC Collected: 05/26/2018 Status: F Source: [place] PROFILE (BMP) 5:05 AM [facility] REPOSITORY TYPE CODE TESTS RESULT OUT OF [...] GAP 5 Performed By: #### L500.2500 #### [facility] [address] [place], [address] CBC W/DIFF, AUTOMATED Collected: 05/26/2018 Status: F Source: [place] 5:05 AM [facility] REPOSITORY TYPE CODE TESTS RESULT OUT OF [...] Lymph 0.99 Performed By: #### L100.0100 #### [facility] [address] [place], [address] [facility] Observed: 05/26/2018 Status: COMPLETED Source: [place] 12:00 AM [facility] REPOSITORY Patient Outreach (INTMWS) ROSA BELTRAN ([id number]) 1935 F Date Time Provider Department 05/26/18 MARITZA RUSSELL During your visit today, we recorded the following information about you: Maritza Tian RN 05/26/2018 11:13 AM Signed TRANSITION CARE MANAGEMENT (TCM) DISCHARGE TO POST ACUTE FACILITY POST ACUTE TRANSFER SUMMARY: -Pt discharged from [facility] on 05/25/18. -Post Acute Facility Admitted to [facility] -Admitted for: Ulcer of ankle, right, with fat layer exposed (HCC) Volodymyr Gilbert [facility] 05/26/2018 11:13 AM Signed Will call [facility] next week for patient update/discharge planning. Volodymyr Gilbert [facility] 05/31/2018 9:07 AM Signed Called and lmom for Jessica to return my call if she has any updates/discharge planning for Rosa. Volodymyr Gilbert [facility] 05/31/2018 9:20 AM Signed Jessica returned my call and states they're having a meeting for Rosa today. She doesn't anticipate she'll be in SNF for a long period of time. Estimates 1-2 weeks. I will call back next week for another update and to see if any discharge plans are put in place. Volodymyr Gilbert [facility] 06/07/2018 9:00 AM Signed Left message for KUMAR to return call #[phone] Volodymyr Gilbert [facility] 06/07/2018 10:06 AM Signed jessica returned my call and lmom. She states Rosa is still at SNF and no discharge planning in place as of yet. Volodymyr Gilbert [facility] 06/14/2018 8:21 AM Signed Left message for KUMAR Lopez, to return call #[phone] Volodymyr Gilbert [facility] 06/21/2018 9:13 AM Signed Spoke with KUMAR Paul (jessica is out today) who states she'll check on her status and get back to me. Volodymyr Gilbert [facility] 06/21/2018 12:24 PM Signed See discharge note. Harts discharged 07/21/18 from TCU. Allergies As of [...] AND PHYSICAL Observed: 05/25/2018 Status: F Source: [place] EXAM 8:31 PM [facility] REPOSITORY [facility] Medical Records Department [address] [place] [address] History and Physical 05/25/182015 MR#: [id number] Acct: [id number] Name: Rosa Beltran Rep #: [id number] : 1935 82 From: Brody Sweet MD PCP: Mani Newman MD Status: ADM IN Y Location: [place] [address] Problem List (1) Venous stasis ulcer of [...] old Female with below past medical history, [facility] resident, admitted to [facility] 05/22/2018 with non-healing venous stasis ulcer [...] ORIF. 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 Lives: Alone Smoking Status: Never smoker [...] Signed CNDS Observed: 05/25/2018 Status: COMPLETED Source: [place] 5:14 PM [facility] OTHER [facility] REPOSITORY HNO ID: [id number] Author: Shola Flores Service: Hospital Medicine Author [...] 25, 2018 TIME: 6:51 PM PAGER/CONTACT #: [phone] CASE MANAGEM Observed: 05/25/2018 Status: COMPLETED Source: [place] 3:58 PM [facility]IC OTHER CAMPUS REPOSITORY [facility] ID: [id number] Author: Lisa ParksRn) ELENA Irvin Service: Case Management Author Type: Registered Nurse Type: Care Mgt Progress Note Filed: 05/25/2018 4:05 PM Note Text: CARE MANAGEMENT DISCHARGE NOTE SERVICE DATE: 05/25/2018 SERVICE TIME: 3:58 PM LOS: 3 days Admission Date: 05/22/2018 DISCHARGE ARRANGEMENT (list agency and phone number) [facility] facility: Was an expedited discharge program used? No Provider: [facility] SN[facility] CAREGIVER ASSESSMENT: Caregiver is ready, willing and able to meet the patient's needs as recommended by the inter-professional team? Yes Patient's transition needs and plan for meeting these needs: SNF Does the patient have an acute stroke diagnosis, or has the patient had a stroke during this admission? No HANDOFF COMMUNICATION: Client Application Support Engineer: Maritza Tian agatha Primary Care Physician: Dr. Mani Newman CM discharge note routed to patients [facility] via [facility]. TRANSPORTATION ARRANGEMENTS: Mode of Transportation: Amb[facility] Transportation Agency and Phone #: [facility] ( [facility] ) [phone] / [phone]. Date of Trip: 05/25/18 Type of Service: Wheelchair Is Patient Medicaid Pending: No Discussion of financial coverage occurred with Patient . Bus Inspector Location: [facility] Destination: [facility] Financial Care Management Responsibility: None Estimated Charge: NA Approving Electroencephalogram Technologist: NA ADDITIONAL CONTACT RESOURCES: NA Needs Prior to Discharge: Accepting Facility IM letter given to Rosa Beltran on 05/15/18. Discharge order written for today. Patient stated she would need ambulette cotton picker for transport. Notified the patient of potential cost to her for ambulette transport. Patient verbalized understanding. [facility] ambulette tranpsort set up for 4:30 cotton picker. Notified RN, EMILY and patient of cotton picker time. Notified [facility] of patients discharge today with a 4:30 cotton picker time. Call placed to patients daughter in law Sheron per the patients request and notified her of the patients discharge today going to [facility] with a 4:30 cotton picker time. SIGNATURE: Lisa Irvin PATIENT NAME: Rosa Beltran DATE: May 25, 2018 TIME: 3:58 PM PAGER/CONTACT #: [phone] NM BONE 3 PHASE Observed: 05/25/2018 Status: F Source: [place] 3:20 PM CLINIC OTHER CAMPUS REPOSITORY * [...] of osteomyelitis in the appropriate clinical setting. Credit Professional: DWIGHT Transcribe Date/Time: May 28 2018 6:36P Dictated by : LASHA PATRICIA MD This examination was interpreted and the report reviewed and electronically signed by: LASHA PATRICIA MD on May 28 2018 6:47PM EST [id number] CASE MANAGEM Observed: 05/25/2018 Status: COMPLETED Source: [place] 2:40 PM [facility] REPOSITORY HNO ID: [id number] Author: Lisa ParksRn) ELENA Irvin Service: Case [...] 25, 2018 TIME: 2:40 PM PAGER/CONTACT #: [phone] PLAN OF CARE Observed: 05/25/2018 Status: COMPLETED Source: [place] 12:27 PM [facility] OTHER CAMPUS REPOSITORY HNO ID: [id number] Author: Yamilka Rosa (In Flight Crew Member) Service: (none) Author Type: (none) Type: Plan of Care Filed: 05/25/2018 12:28 PM Note Text: AUTOMOTIVE CUSTOMER EXPERIENCE ADVISOR BEDSIDE DELIVERY SURVEY 1. Patient to use [facility] Bedside Delivery - NO prefer own pharmacy 2. If fax, patient would like us to fax prescriptions to Pharmacy of choice a. Pharmacy: b. Location: c. Phone: 3. Insurance card on file - N/A 4. Credit card for payment - N/A Patient wants to use local pharmacy. CASE MANAGEM Observed: 05/25/2018 Status: COMPLETED Source: [place] 11:47 AM [facility] REPOSITORY HNO ID: [id number] Author: Lisa (Rn) ELENA Irvin Service: Case Management Author Type: Registered Nurse Type: Care Mgt Progress Note Filed: 05/25/2018 12:31 PM Note Text: CARE MANAGEMENT PROGRESS NOTE SERVICE DATE: 05/25/2018 SERVICE TIME: 11:47 AM LOS: 3 days Needs Prior to Discharge: Accepting Facility Took call from Tia at [facility], she noted she spoke with the medical investigator and they feel this patient needs a private room and they do not have a private room at this time. CM inquired if she can return to her current room and move to a private room when one is available. Tia noted the the medical investigator said they are unable to take her back. Met with the patient and updated her on [facility] decision regarding not being able to take her back. SNF list provided to the patient, she noted she would like #1- [facility] SNF, #2- [facility] and #3- [facility]. Referral placed to [facility] and [facility]. CM department will continue to follow for DC needs. SIGNATURE: Lisa Irvin PATIENT NAME: Rosa Beltran DATE: May 25, 2018 TIME: 11:47 AM PAGER/CONTACT #: [phone] CONSULT PROG Observed: 05/25/2018 Status: COMPLETED Source: [place] 10:40 AM [facility] REPOSITORY HNO ID: [id number] Author: Heather Lynn Service: Infectious Disease Author [...] CASE MANAGEM Observed: 05/25/2018 Status: COMPLETED Source: [place] 10:27 AM [facility] OTHER CAMPUS REPOSITORY O ID: [id number] Author: Lisa (Rn) ELENA Irvin Service: Case Management Author Type: Registered Nurse Type: Care Mgt Progress Note Filed: 05/25/2018 10:29 AM Note Text: CARE MANAGEMENT PROGRESS NOTE SERVICE DATE: 05/25/2018 SERVICE TIME: 10:27 AM LOS: 3 days Needs Prior to Discharge: Accepting Facility Notified by Dr. Flores that the patient will be discharged today. Call placed to Tia at [facility], notified her that the patient is being discharged today and that I needed to confirm she is able to return to them. Tia is requesting updated notes sent over in All[employer]. Updated notes sent. CM department will continue to follow for DC needs. SIGNATURE: Lisa Irvin PATIENT NAME: Rosa Beltran DATE: May 25, 2018 TIME: 10:27 AM PAGER/CONTACT #: [phone] CASE MANAGEM Observed: 05/25/2018 Status: COMPLETED Source: [place] 10:11 AM [facility] REPOSITORY HNO ID: [id number] Author: Lisa Irvin RN Service: Case Management Author Type: Registered Nurse Type: Care Mgt Progress Note Filed: 05/25/2018 10:13 AM Note Text: CARE MANAGEMENT PROGRESS NOTE SERVICE DATE: 05/25/2018 SERVICE TIME: 10:11 AM LOS: 3 days Met with the patient and she noted she wants to notify [facility] that she wants to hold her bed. Dr. Wynn also in the room and he noted the patient may be ready for discharge today. [facility] the [facility] wishes to hold her bed and potential for discharge home today. CM department will continue to follow for DC needs. SIGNATURE: Lisa Irvin PATIENT NAME: Rosa Beltran DATE: May 25, 2018 TIME: 10:11 AM PAGER/CONTACT #: [phone] CONSULT PROG Observed: 05/25/2018 Status: COMPLETED Source: [place] 8:58 AM [facility] REPOSITORY HNO ID: [id number] Author: Kapil Lopez Service: Podiatry Author Type: [...] PAGER: CBC Collected: 05/25/2018 Status: F Source: [place] 6:00 AM [facility] OTHER CAMPUS REPOSITORY TYPE [...] By: #### CBC, PT, MG1, RFP #### [facility] [address] [facility] [phone] PROTIME Collected: 05/25/2018 Status: F Source: [place] 6:00 AM [facility] OTHER CAMPUS REPOSITORY TYPE CODE TESTS RESULT OUT OF RANGE REFERENCE UNITS LAB PSEC 9.7-13.0 sec High PT Sec 18.0 LAB INR 0.9-1.3 High PT INR 1.8 Result Comment: Vitamin K Antagonist (VKA) Therapeutic Range: INR 2 to 3 (Target INR of 2.5) Note: For patients treated with VKA drugs, such as warfarin, the [place] [employer] 2012 Guideline recommends [...] Chest 2012, 141:7S-47S Genevieve RA, et al. [facility] 2017, 70: 252-289 Performed By: #### CBC, PT, MG1, RFP #### [facility] [address] [place] [address] MAGNESIUM Collected: 05/25/2018 Status: F Source: [place] 6:00 [facility] [place] REPOSITORY TYPE CODE TESTS RESULT OUT OF REFERENCE UNITS RANGE LAB MG 1.7-2.3 mg/dL Magnesium 1.9 Performed By: #### CBC, PT, MG1, RFP #### [facility] [address] [place], [place] [phone] RENAL FUNCTION PANEL Collected: 05/25/2018 Status: F Source: [place] 6:00 AM [facility] OTHER [place] REPOSITORY TYPE CODE TESTS RESULT OUT OF REFERENCE UNITS RANGE LAB ALB 3.9-4.9 g/dL Low Albumin 2.6 LAB CA 8.5-10.2 mg/dL Low Calcium, Total 8.1 LAB PHOS 2.7-4.8 mg/dL Phosphorus 3.2 LAB GLU 74-99 mg/dL Glucose 97 Result Comment: The [place] Diabetes Association (ADA) provides guidance for cutoff [...] Standards of Medical Care in Diabetes 2016, [place] [employer]. Diabetes Care. 2016.39(Suppl 1). LAB [...] By: #### CBC, PT, MG1, RFP #### [facility] [address] [facility] [phone] CNCO Observed: 05/25/2018 Status: COMPLETED Source: [place] 12:00 AM CLINIC OTHER CAMPUS REPOSITORY Letter Text May 25, 2018 Rosa Beltran [address] [place] [address] Dear Ms. Beltran, The nurses and staff of [facility] hope this letter finds you feeling well [...] free to contact me, Ayanna Corley RN ([phone]) or email me at, [email or web address] Additionally, you will receive a [...] participation and thank you for choosing the [facility] for your health needs. Sincerely, Nurse Electroencephalogram Technologist: Ayanna Corley RN ([phone]) [facility] Unit: [facility] PROGRESS Observed: 05/24/2018 Status: COMPLETED Source: [place] 1:52 PM [facility] REPOSITORY HNO ID: [id number] Author: Jolynn Lowe (Pharmacist) Service: Pharmacy Author [...] OF CARE Observed: 05/24/2018 Status: COMPLETED Source: [place] 1:45 PM [facility] OTHER [place] REPOSITORY HNO ID: [id number] Author: Heather Lynn Service: Infectious Disease Author Type: Physician Type: Plan of Care Filed: 05/24/2018 1:45 PM Note Text: Consult Dictated. Please call with questions. Will follow with you. Thank you. Heather Lynn MD Pager: [phone] Date: 05/24/2018 Time: 1:45 PM PROGRESS Observed: 05/24/2018 Status: COMPLETED Source: [place] 11:17 AM [facility] OTHER [place] REPOSITORY HNO ID: [id number] Author: Maki Yeager (Pharmacist) Service: Pharmacy Author [...] have any questions, please contact pharmacy at [phone]. Age: [age] year old Allergies: ALLERGIES No [...] CASE MANAGEM Observed: 05/24/2018 Status: COMPLETED Source: [place] 10:52 AM [facility] REPOSITORY HNO ID: [id number] Author: Anel (Rn) ELENA Schneider Service: Case Management Author Type: Registered Nurse Type: Care Mgt Progress Note Filed: 05/24/2018 10:54 AM Note Text: CARE MANAGEMENT PROGRESS NOTE SERVICE DATE: 05/24/2018 SERVICE TIME: 10:52 AM LOS: 2 days FREEDOM OF CHOICE GIVEN: Yes - CM met with patient at bedside to discuss dc planning. CM discussed speaking to Tia at [facility] and facility not placing bed hold to confirm patient can return to facility at [place]. CM sent updated notes to [facility] and notified facility of patient wanting to return at [place]. Patient confirmed she will need wheelchair transport at [place]. Needs Prior to Discharge: Accepting Facility;Bed Availability;Discharge Transportation SIGNATURE: Anel Schneider RN PATIENT NAME: Rosa Beltran DATE: May 24, 2018 TIME: 10:52 AM PAGER/CONTACT #: [phone] PROGRESS Observed: 05/24/2018 Status: COMPLETED Source: [place] 10:02 AM [facility] REPOSITORY HNO ID: [id number] Author: Shola Flores Service: Hospital Medicine Author Type: Physician Type: Progress Notes Filed: 05/24/2018 10:05 AM Note Text: HOSPITAL MEDICINE PROGRESS NOTE Name: Rosa Beltran SERVICE DATE: 05/23/2018 SERVICE TIME: 11:48 AM LOCATION / ROOM: [id number] Hospital Medicine/Primary Attending: Shola Flores MD NIGHT COVERAGE BETWEEN 5.30P-7.30A Page [phone] ASSESSMENT AND PLAN Active Hospital Problems Diagnosis [...] - CKD (chronic kidney disease), stage III ([facility]) Renal function stable. - Hypotension due to [...] tablet ORAL q 6 H PRN Shola Teranilasam 1 tablet at 05/24/18 0904 warfarin 3 [...] AM PROTIME Collected: 05/24/2018 Status: F Source: [place] 6:03 AM [facility] OTHER CAMPUS REPOSITORY TYPE CODE TESTS RESULT OUT OF RANGE REFERENCE UNITS LAB PSEC 9.7-13.0 sec High PT Sec 20.5 LAB INR 0.9-1.3 High PT INR 2.0 Result Comment: Vitamin K Antagonist (VKA) Therapeutic Range: INR 2 to 3 (Target INR of 2.5) Note: For patients treated with VKA drugs, such as warfarin, the [place] [employer]icians 2012 Guideline recommends [...] Chest 2012, 141:7S-47S Genevieve ESTRADA et al. [facility] 2017, 70: 252-289 Performed By: #### PT, CBC #### [facility] [address] [place] [address] CBC Collected: 05/24/2018 Status: F Source: [place] 6:03 AM [facility] REPOSITORY TYPE CODE TESTS RESULT [...] 10.1 Performed By: #### PT, CBC #### [facility] [address] [place] [address] BASIC METABOLIC PANL Collected: 05/24/2018 Status: F Source: [place] 6:03 AM [facility] REPOSITORY TYPE CODE TESTS RESULT OUT OF REFERENCE UNITS RANGE LAB GLU 74-99 mg/dL Glucose 81 Result Comment: The [place] Diabetes Association (ADA) provides guidance for cutoff [...] Standards of Medical Care in Diabetes 2016, [place] [employer]. Diabetes Care. 2016.39(Suppl 1). LAB [...] actual GFR. Performed By: #### BMP #### [place] [address] #### HBA1C #### [place] [address] HEMOGLOBIN A1C Collected: 05/24/2018 Status: F Source: [place] 6:03 AM CLINIC OTHER CAMPUS REPOSITORY TYPE CODE TESTS RESULT OUT OF REFERENCE UNITS RANGE LAB HGBA1C 4.3-5.6 % Hemoglobin A1c 5.4 LAB HBA0 mg/dL Est. Average Glucose 108 Result Comment: eAG: (Estimated average glucose) is a calculated value from HgbA1c and is dental sales representative of the average blood glucose level in the last 2-3 month period. Performed By: #### BMP #### [facility] [address] [place], [place] [id number] #### HBA1C #### [place] [address] [place] [address] NURSING PROG Observed: 05/24/2018 Status: COMPLETED Source: [place] 4:27 AM [facility] REPOSITORY HNO ID: [id number] Author: Kam ParksRn) ELENA Kaiser Service: Nursing Author Type: Registered Nurse Type: Nursing Progress Note Filed: 05/24/2018 4:29 AM Note Text: Nursing Progress Note Patient Name: Rosa Beltran Patient Location: [place] [address]/[id number] Daily Note: 0425: Reported BP of 96/[address] Blanton. Ordered to hold morning dose of Lasix. This note was completed by: Kam Kaiser RN CONSULT Observed: 05/24/2018 Status: COMPLETED Source: [place] 12:00 AM [facility] OTHER [place] REPOSITORY HNO ID: [id number] Author: Heather Lynn Service: Infectious Disease Author Type: Physician Type: Consults Filed: 05/25/2018 8:51 AM Note Text: [facility]- Consultation ROSA BELTRAN : 1935 AGE: 82 SEX: F ACCTNUM: [id number] [facility]: [facility]: [facility] ATTENDING PHYSICIAN: SHOLA FLORES DATE OF CONSULTATION: 05/24/2018 REFERRING PHYSICIAN: Shola Flores MD REASON FOR CONSULTATION: Right leg infection. HISTORY: The patient is an 82-year-old female, who was admitted to [facility] in 03/2018 with right leg wound infection. [...] the consult. Heather Lynn M.D. Infectious Disease [id number] THERAPY NT Observed: 05/23/2018 Status: COMPLETED Source: [place] 4:06 PM [facility] OTHER CAMPUS REPOSITORY HNO ID: [id number] Author: Anel ParksOt/Aidee Barney Service: Occupational Therapy Author Type: Occupational Therapist Type: Therapy (PT/OT/Speech/Resp) Filed: 05/23/2018 4:16 PM Note Text: Occupational Therapy Evaluation SERVICE DATE: 05/23/2018 SERVICE TIME: 1447 to 1531 (Co-treatment with PT due to RN report of amount of assistance required earlier this date) ROOM: [id number] Recommended Discharge Disposition: Subacute/SNF Recommended Discharge Disposition [...] of daily living (ADL) Interventions Provided: Evaluation;Self Alf Management (59242) $ Evaluation-Moderate (61761) Billed Units: 1 unit Self Alf Management (97011) Treatment Minutes: 15 1 unit Skilled Intervention(s): [...] admitted from SNF per CM) Assistance Available: 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 ROOM: [place] [address] Recommended Discharge Disposition: Subacute/SNF Recommended Discharge Disposition [...] Diagnosis: Reduced mobility-other Interventions Provided: Evaluation;Therapeutic Activity (32045) $ Evaluation-Moderate (98212) Billed Units: 1 unit Therapeutic Activity (56485) Treatment Minutes: 30 2 units Skilled Intervention(s): [...] Environment Patient Lives With: Self/Alone Assistance Available: real time trader (dtr in [facility] lives upstairs, works different shifts) Entry To Home: (stair lift) Number Of Stairs To Bed/Bath: 0 Tub/Shower Type: walk in Laundry: pt completes Equipment Owned: Grab Bars-Shower;Grab Bars-Toilet;Hospital Bed;Wheeled Walker;Wheelchair;Home Oxygen;Lift Chair Prior Functional Level: Required Assistance Assistance Required With: Shopping;Transportation Prior Functional Level Comments: Pt reports ind with ADLs, dtr in [facility] assists with meals as needed, uses walker [...] for this therapy evaluation/treatment. SIGNATURE: Alicja Guzman, FOZIA PATIENT NAME: Rosa Beltran DATE: May 23, 2018 TIME: 4:00 PM [facility] HEALTH Observed: 05/23/2018 Status: COMPLETED Source: [place] 2:50 PM [facility] OTHER [place] REPOSITORY HNO ID: [id number] Author: Svetlana ParksRn) Carlos RN Service: Ostomy Author Type: Registered Nurse Type: Allied Health Filed: 05/23/2018 2:54 PM Note Text: Consult received for wound care. Podiatry service also consulted, has evaluated and written wound care orders. I will defer my consult. I will remain available if needs arise. Svetlana Gonzalez RN CWOCN PT ED Observed: 05/23/2018 Status: COMPLETED Source: [place] 2:36 PM [facility] OTHER CAMPUS REPOSITORY HNO ID: [id number] Author: Danica Alejandro (Boilerhouse Mechanic) Service: Pharmacy Author Type: Pharmacist Type: Patient Education Filed: 05/23/2018 2:39 PM Note Text: PHARMACY WARFARIN EDUCATION Patient Name: Rosa Beltran Account #: Data Unavailable Admission Date: 05/22/2018 5:25 PM Date of Contact: May 23, 2018 Time of Contact: 2:37 PM Patient new to warfarin? No: Previous (home) dosage: 3mg daily Outpatient follow-up plan: Follow[facility]up in [facility] or outside Anticoagulation Clinic Details:[facility] Indication for warfarin: atrial fibrillation Target [...] information Outcomes not met: N/A Outpatient Follow-up: [facility] DANICA ALEJANDRO, PIPE WRAPPING MACHINE OPERATOR PROGRESS Observed: 05/23/2018 Status: COMPLETED Source: [place] 11:48 AM [facility] OTHER CAMPUS REPOSITORY HNO ID: [id number] Author: Shola Flores Service: Hospital Medicine Author Type: Physician Type: Progress Notes Filed: 05/23/2018 11:52 AM Note Text: HOSPITAL MEDICINE PROGRESS NOTE Name: Rosa Beltran SERVICE DATE: 05/23/2018 SERVICE TIME: 11:48 AM LOCATION / ROOM: [facility]0408/[id number] Hospital Medicine/Primary Attending: Shola Flores MD NIGHT COVERAGE BETWEEN 5.30P-7.30A Page [phone] ASSESSMENT AND PLAN Active Hospital Problems Diagnosis [...] Patient is already anti-coagulated. Disposition: Home with [facility] or Extended Care Facility Plan of care discussed with: Patient, Daughter and RN. SIGNATURE: Shola Flores MD DATE: May 23, 2018 TIME: 11:48 AM CASE MGT INIT Observed: 05/23/2018 Status: COMPLETED Source: [place] 11:43 AM [facility] OTHER CAMPUS REPOSITORY HNO ID: [id number] Author: Meredith ParksRn) ELENA Burns Service: (none) Author Type: Registered Nurse Type: Care Mgt Initial Assessment Filed: 05/23/2018 11:48 AM Note Text: CARE MANAGEMENT: ASSESSMENT AND DISCHARGE PLAN SERVICE DATE: 05/23/2018 SERVICE TIME: 11:43 AM PRIMARY CARE PHYSICIAN: Mani Newman MD (confirmed) ADMISSION STATUS: Inpatient Needs Prior to Discharge: To Be Determined;Facility or Agency Choices MEDICAL: Patient/Wireless Team Member Stated Goals: To have reduction in pain To have reduction in symptoms To improve my functional status To return home to life as it was Health Insurance: MEDICARE A AND B [place] Health Issues Impacting Discharge Plan: CHF, afib, chronic wounds, CAD Last Admission Date: Previous admit date: 04/20/2018 Is this Within the Past 30 days? No Advance Directive: Current Advance Directive: Health Care Power of Street Sprinkler In Chart: (family to bring in copy) [...] days? Yes. Where and Dates: current at [facility] SOCIAL: Living Arrangement: Nursing Facility [facility] (Level of Care: skilled Bed Hold Days: .) Lives With: N/A Patient From Facility Financial Resources: Retired Primary Contact: Extended Emergency Contact Information Primary Emergency Contact: Sheron Beltran Address: UNKNOWN [address] [place] Relation: Relative Supportive: Yes Other Important [...] 0 I feel financially burdened by my ycm-ce-pueygg expenses for my prescription medication: Disagree mostly [...] CHOICE EXPLAINED: Yes wants to return to [facility], if HHC wants [facility]> POTENTIAL TRANSITION PLANS Home Care Half-Way Facility/Intermediate Care Facility CM in to speak with patient at bedside, introduced self and role. Pt is a 82y/o with medical history of hypothyroidism, acute respiratory failure with hypoxia, A. fib, CAD, COPD, depression, hypertension, dyslipidemia, and rheumatoid arthritis presents from wound center worsening wound infection . Pt is from [facility] (Skilled) and per pt, plan is to return, if HHC needed wants [facility]. CM instructed pt that a CM will remain available for any d/c needs. Pt had no further questions/concerns voiced at this time. SIGNATURE: Meredith Burns RN PATIENT NAME: Rosa Beltran DATE: May 23, 2018 TIME: 11:43 AM PAGER/CONTACT #: [phone] CONSULT Observed: 05/23/2018 Status: COMPLETED Source: [place] 10:33 AM [facility]IN[facility] OTHER CAMPUS REPOSITORY O ID: [id number] Author: Kapil Lopez Service: Podiatry Author Type: [...] ulcers. Patient was sent to ED from [facility]. Patient reports feeling N/F/V/C for the last [...] hypothyroidism - Acute respiratory failure with hypoxia ([facility]) 09/30/2017 - Atrial fibrillation ([facility]) - CAD (coronary artery disease) Dr. Brenda [...] Cfx - SE[facility]ons[facility] - GASTRIC BYPASS HX 1986 - HERNIA REPAIR HX 1987; 1989 - PAST SURGICAL HISTORY OF Right 09/2015 right tibia fracture ORIF - PAST SURGICAL HISTORY OF Right 01/20/2016 Removal of hardware, right tibia - TOTAL KNEE REPLACEMENT Right 2003 [facility] Gen. - TOTAL KNEE REPLACEMENT Left 2004 [facility] Gen. FAMILY HISTORY: No family [...] 05/23/2018 Neut% 67.3 05/22/2018 Lymph% 22.4 05/22/2018 Chaves% 7.4 05/22/2018 Eosin% 2.4 05/22/2018 Baso% 0.5 05/22/2018 Abs Neut (ANC) 5.57 05/22/2018 Abs Chaves 0.61 05/22/2018 Abs Eosin 0.20 05/22/2018 Abs [...] AM PROGRESS Observed: 05/23/2018 Status: COMPLETED Source: [place] 8:54 AM [facility] OTHER CAMPUS REPOSITORY O ID: [id number] Author: Rayshawn Arzate (Pharmacist) Service: Pharmacy Author [...] have any questions, please contact pharmacy at [phone]. Age: [age] year old Allergies: ALLERGIES No [...] Pharmacist CBC Collected: 05/23/2018 Status: F Source: [place] 6:28 AM CLINIC OTHER CAMPUS REPOSITORY TYPE [...] Performed By: #### CBC, PT, CMP #### [facility] [address] [place] [address] PROTIME Collected: 05/23/2018 Status: F Source: [place] 6:28 AM [facility] OTHER [place] REPOSITORY TYPE CODE TESTS RESULT OUT OF RANGE REFERENCE UNITS LAB PSEC 9.7-13.0 sec High PT Sec 20.1 LAB INR 0.9-1.3 High PT INR 2.0 Result Comment: Vitamin K Antagonist (VKA) Therapeutic Range: INR 2 to 3 (Target INR of 2.5) Note: For patients treated with VKA drugs, such as warfarin, the [place] [employer]icians 2012 Guideline recommends [...] Chest 2012, 141:7S-47S Genevieve RA, et al. [facility] 2017, 70: 252-289 Performed By: #### CBC, PT, CMP #### [facility] [address] [place] [address] COMP METABOLIC PANEL Collected: 05/23/2018 Status: F Source: [place] 6:28 [facility] REPOSITORY TYPE CODE TESTS RESULT OUT OF REFERENCE UNITS RANGE LAB TP 6.3-8.0 g/dL Protein, Total 8.0 LAB ALB 3.9-4.9 g/dL Low Albumin 3.1 LAB CA 8.5-10.2 mg/dL Calcium, Total 8.6 LAB TBIL 0.2-1.3 mg/dL Bilirubin, Total 0.7 LAB ALKP 32-117 U/L Alkaline Phosphatase 74 LAB AST 13-35 U/L AST 32 LAB GLU 74-99 mg/dL Glucose 92 Result Comment: The [place] [employer] Association (ADA) provides guidance for cutoff [...] Standards of Medical Care in Diabetes 2016, [place] [employer]. Diabetes Care. 2016.39(Suppl 1). LAB [...] Performed By: #### CBC, PT, CMP #### [facility] [address] [place] [address] PROGRESS Observed: 05/22/2018 Status: COMPLETED Source: [place] 10:22 PM [facility] OTHER CAMPUS REPOSITORY [facility] ID: [id number] Author: Amauri Lund (Pharmacist) Service: Pharmacy Author [...] have any questions, please contact pharmacy at [phone]. Age: [age] year old Allergies: ALLERGIES No [...] HISTORY PHYSICAL Observed: 05/22/2018 Status: COMPLETED Source: [place] 8:31 PM [facility] OTHER CAMPUS REPOSITORY HNO ID: [id number] Author: Sharlene Angel Service: General Internal Medicine Author Type: Physician Type: HANDP Filed: 05/22/2018 10:33 PM Note Text: HOSPITAL MEDICINE HISTORY AND PHYSICAL EXAM PATIENT NAME: Rosa Beltran SERVICE DATE: 05/22/2018 SERVICE TIME: 8:31 PM Primary Care Physician: Mani Newman MD NIGHT COVERAGE Page [phone] for any questions between 5.30p-7.30a ASSESSMENT AND [...] with hypoxia (H[facility]) 09/30/2017 - Atrial fibrillation ([facility]) - CAD (coronary artery disease) Dr. Brenda [...] 10/08/2016 - COPD (chronic obstructive pulmonary disease) ([facility]) - Depressive disorder 12/29/2016 - Disruption of surgical wound 09/2015 Right tibia - Dorsalgia 12/29/2016 - Dyslipidemia - Gastric bypass status for obesity 12/29/2016 - Gastroesophageal reflux disease without esophagitis 10/08/2016 - HTN (hypertension) - Muscular weakness 12/29/2016 - Primary osteoarthritis involving multiple joints 12/29/2016 - Pure hypercholesterolemia - Rheumatoid arthritis ([facility]) 2007 - Sleep apnea - Stented coronary [...] tibia - TOTAL KNEE REPLACEMENT Right 2003 [facility] Gen. - TOTAL KNEE REPLACEMENT Left 2004 [facility] Gen. FAMILY HISTORY: No family [...] consult WOUND Observed: 05/22/2018 Status: F Source: [place] CULTURE/STAIN 8:30 PM [facility] REPOSITORY Sp. Request/Comment: - Swab Smear Result [...] clinically indicated. Performed By: #### WCUL #### [facility] [employer] [address] [place] [id number] ED PROV NOTE Observed: 05/22/2018 Status: COMPLETED Source: [place] 8:06 PM [facility] REPOSITORY HNO ID: [id number] Author: Karan Diallo DO Service: Emergency Medicine [...] 10/08/2016 - COPD (chronic obstructive pulmonary disease) ([facility]) - Depressive disorder 12/29/2016 - Disruption of surgical wound 09/2015 Right tibia - Dorsalgia 12/29/2016 - Dyslipidemia - Gastric bypass status for obesity 12/29/2016 - Gastroesophageal reflux disease without esophagitis 10/08/2016 - HTN (hypertension) - Muscular weakness 12/29/2016 - Primary osteoarthritis involving multiple joints 12/29/2016 - Pure hypercholesterolemia - Rheumatoid arthritis ([facility]) 2007 - Sleep apnea - Stented coronary artery 12/29/2016 PAST SURGICAL HISTORY Procedure Laterality Date - CC CORONARY STENT 11/20/2012 [facility] - CC CORONARY STENT 12/20/2014 [facility], Cfx - SECTION HX - COLONOSCOPY 06/10/2017 [facility], Nonspecific cecal ulcer - GASTRIC BYPASS HX 1986 - HERNIA REPAIR HX 1987; 1989 - PAST SURGICAL HISTORY OF Right 09/2015 right tibia fracture ORIF - PAST SURGICAL HISTORY OF Right 01/20/2016 Removal of hardware, right tibia - TOTAL KNEE REPLACEMENT Right 2003 [facility] Gen. - TOTAL KNEE REPLACEMENT Left [facility] [facility] No family history on [...] signs reviewed Triage note reviewed Medications administered [place] Cipro vancomycin Reviewed and summarized previous medical records including previous wound culture is showing pseudomonas growth Zosyn resistant Discussed with admitting hospitalist team physician daycare assistant Giancarlo Dangelo - agreeable to admission [...] of disposition: stable SIGNATURE: DAFNE Lester (Pa) 05/22/18 120 Attending Note I have personally performed a face to face assessment of the patient and have reviewed the PA/CELEBRITY CHEF ENTREPRENEUR MEDIA PERSONALITY note. My [place] findings include: History is [...] 0748 EKG Observed: 05/22/2018 Status: F Source: [place] 7:47 PM [facility] OTHER [place] REPOSITORY NAME : ROSA BELTRAN PID : [id number] : 1935 Gender : Female Race : Unknown ORD : [id number] Procedure Date : May 22 2018 19:47:13 Edit Date : May 24 2018 08:31:12 Diagnosis:ATRIAL FIBRILLATION LOW VOLTAGE QRS RSR' OR QR PATTERN IN V1 SUGGESTS RIGHT VENTRICULAR CONDUCTION DELAY BORDERLINE ECG WHEN COMPARED WITH ECG OF 17-MAR-2018 19:25, RSR' PATTERN IN V1 HAS REPLACED INCOMPLETE RIGHT BUNDLE BRANCH BLOCK Confirmed by MD Guillaume Qarab ([id number]) on 05/24/2018 8:31:09 AM Ventricular Rate : 79 BPM Atrial Rate : 101 BPM QRS Duration : 78 ms Q-T Interval : 348 ms QTC Calculation(Bezet) : 399 ms R [place] : 82 degrees T [place] : 7 degrees Test Reason : Arrhythmia Location : 1 : ER 9 Overread By : MD Guillaume Qarab Edited By : MD Guillaume Qarab Referred By : , Acquired by : MER, Observed: 05/22/2018 Status: F Source: [place] BLOOD CULTURE 7:35 PM [facility] REPOSITORY Sp. Request/Comment: - The blood culture bottles are underfilled. Adding volume lower or higher than the 8 to 10 mL per bottle, which is the manufacturers recommended volume, may adversely affect the re covery and/or detection of organisms. 8.2CC Culture Result - No growth 5 days Performed By: #### BLCUL #### [facility] [employer] [address] [place], [place] [address] Observed: 05/22/2018 Status: F Source: [place] BLOOD CULTURE 7:15 PM [facility] REPOSITORY Culture Result - No growth 5 days Performed By: #### BLCUL #### [facility] [employer] [address] [place], [place] [address] XR TIBIA FIBULA 2V Observed: 05/22/2018 Status: F Source: [place] AP/LAT RT 7:08 PM CLINIC OTHER CAMPUS [...] OF OSTEOMYELITIS REMOTE POSTTRAUMATIC AND POSTSURGICAL CHANGE Credit Professional: [facility] Transcribe Date/Time: May 22 2018 7:26P Dictated by : SHAMIKA MCEKON MD This examination was interpreted and the report reviewed and electronically signed by: SHAMIKA MCKEON MD on May 22 2018 7:32PM EST [id number] XR CHEST 1V FRONTAL Observed: 05/22/2018 Status: F Source: [facility] 7:07 PM CLINIC OTHER CAMPUS REPOSITORY [...] acute bony abnormality. Chronic rotator cuff tears. Credit Professional: P[facility] Transcribe Date/Time: May 22 2018 7:22P Dictated by : SHAMIKA MCKEON MD This examination was interpreted and the report reviewed and electronically signed by: SHAMIKA MCKEON MD on May 22 2018 7:24PM EST [id number] XR ANKLE 3V AP/LAT/OBL Observed: 05/22/2018 Status: F Source: [place] RT 7:07 PM CLIN[facility] OTHER CAMPUS REPOSITORY [...] OF OSTEOMYELITIS REMOTE POSTTRAUMATIC AND POSTSURGICAL CHANGE Credit Professional: DWIGHT Transcribe Date/Time: May 22 2018 7:26P Dictated by : SHAMIKA MCKEON MD This examination was interpreted and the report reviewed and electronically signed by: SHAMIKA MCKEON MD on May 22 2018 7:32PM EST [id number] C-REACTIVE PROTEIN Collected: 05/22/2018 Status: F Source: [place] 6:37 PM CLINIC OTHER CAMPUS REPOSITORY TYPE CODE TESTS RESULT OUT OF REFERENCE UNITS RANGE LAB CRP <0.9 mg/dL High C-Reactive 5.0 Protein Performed By: #### CRP #### [facility] [address] [place], [place] [id number] #### WSR #### [place] [address] SED RATE WESTERGREN Collected: 05/22/2018 Status: F Source: [place] 6:37 PM [facility] OTHER CAMPUS REPOSITORY TYPE CODE TESTS RESULT OUT OF REFERENCE UNITS RANGE LAB WSR 0-20 mm/hr Sed Rate High [place] 79 Performed By: #### CRP #### [facility] [address] [place] [address] #### WSR #### [facility] [address] [place] [address] CBC AND DIFFERENTIAL Collected: 05/22/2018 Status: F Source: [place] 6:21 PM [facility] OTHER CAMPUS REPOSITORY TYPE CODE TESTS [...] k/uL Abs Lymph 1.85 LAB AMONO % Chaves% 7.4 LAB AAMONO <0.87 k/uL Abs Chaves 0.61 LAB AEOS % Eosin% 2.4 LAB AAEOS <0.46 k/uL Abs Eosin 0.20 LAB ABASO % Baso% 0.5 LAB AABASO <0.11 k/uL Abs Baso 0.04 Performed By: #### CBCDIF, PT, CMP #### [facility] [address] [place] [address] PROTIME Collected: 05/22/2018 Status: F Source: [place] 6:21 PM CLINIC OTHER CAMPUS REPOSITORY TYPE CODE TESTS RESULT OUT OF RANGE REFERENCE UNITS LAB PSEC 9.7-13.0 sec High PT Sec 22.4 LAB INR 0.9-1.3 High PT INR 2.2 Result Comment: Vitamin K Antagonist (VKA) Therapeutic Range: INR 2 to 3 (Target INR of 2.5) Note: For patients treated with VKA drugs, such as warfarin, the [place] [employer] 2012 Guideline recommends [...] Chest 2012, 141:7S-47S Genevieve RA et al. [facility] 2017, 70: 252-289 Performed By: #### CBCDIF, PT, CMP #### [facility] [address] [place] [address] COMP METABOLIC PANEL Collected: 05/22/2018 Status: F Source: [place] 6:21 PM CLINIC OTHER CAMPUS REPOSITORY TYPE [...] 74-99 mg/dL Glucose 87 Result Comment: The [place] [employer] Association (ADA) provides guidance for cutoff [...] Standards of Medical Care in Diabetes 2016, [place] [employer] Association. Diabetes Care. 2016.39(Suppl 1). LAB [...] Performed By: #### CBCDIF, PT, CMP #### [facility] [address] [phone] NT PRO BNP Collected: 05/22/2018 Status: F Source: [place] 6:21 PM [facility] REPOSITORY TYPE CODE TESTS RESULT OUT OF REFERENCE UNITS RANGE LAB PBNP <450 pg/mL High PRO B Natr 1600 Peptide Performed By: #### NTBNP #### [facility] [address] [facility] [phone] ED NOTE Observed: 05/22/2018 Status: COMPLETED Source: [place] 6:01 PM [facility] REPOSITORY HNO ID: [id number] Author: Aurelia ParksRn) ELENA Simpson Service: (none) [...] ED NOTE Observed: 05/22/2018 Status: COMPLETED Source: [place] 4:02 PM [facility] REPOSITORY HNO ID: [id number] Author: Nasra ParksRn) ELENA Wan Service: (none) Author Type: Registered Nurse Type: ED Notes Filed: 05/22/2018 4:03 PM Note Text: Patient presents from wound center with increased edema in BLLE, weeping from BLLE wounds. Increased pain in legs and feet. PROGRESS Observed: 05/22/2018 Status: COMPLETED Source: [place] 3:45 PM [facility] REPOSITORY HNO ID: [id number] Author: Luis Simons Service: (none) Author Type: Nurse Practitioner Type: Progress Notes Filed: 06/02/2018 7:07 AM Note Text: DATE OF VISIT: 05/22/2018 REASON FOR VISIT: Non-healing lower extremity wound. HISTORY OF PRESENT ILLNESS: Rosa Beltran is a 81 year old female who presents to the [facility] for further evaluation [...] followed by Dr. Jaskaran Chance at the [facility]. It was felt that her home support system was inadequate and that she may not have the resources in her home environment to appropriately care for her needs. In this regard, a social worker palliative care consultation had been recommended on several occassions, but patient apparently insisted on remaining in her home environment despite that there was thought that is may be less than optimal. The patient is here at the [facility] for a second opinion regarding management of the abovementioned bilateral lower extremity wounds. She offers no other complaints. She denies any fevers, chills, wound-related pain or other related symptoms. INTERVAL HISTORY: 05/19/18 Patient presents for a routine follow- up. She was recently admitted to [facility] in 03/2018 with right leg wound infection. [...] 10/08/2016 - COPD (chronic obstructive pulmonary disease) ([facility]) - Depressive disorder 12/29/2016 - Disruption of surgical wound 09/2015 Right tibia - Dorsalgia 12/29/2016 - Dyslipidemia - Gastric bypass status for obesity 12/29/2016 - Gastroesophageal reflux disease without esophagitis 10/08/2016 - HTN (hypertension) - Muscular weakness 12/29/2016 - Primary osteoarthritis involving multiple joints 12/29/2016 - Pure hypercholesterolemia - Rheumatoid arthritis ([facility]) 2007 - Sleep apnea - Stented coronary artery 12/29/2016 PAST SURGICAL HISTORY Procedure Laterality Date - CC CORONARY STENT 11/20/2012 [facility] - CC CORONARY STENT 12/20/2014 KIMMY, Cfx - SECTION HX - COLONOSCOPY 06/10/2017 [facility], Nonspecific cecal ulcer - GASTRIC BYPASS HX 1986 - HERNIA REPAIR HX 1987; 1989 - PAST SURGICAL HISTORY OF Right 09/2015 right tibia fracture ORIF - PAST SURGICAL HISTORY OF Right 01/20/2016 Removal of hardware, right tibia - TOTAL KNEE REPLACEMENT Right 2003 [facility] Gen. - TOTAL KNEE REPLACEMENT Left 2004 [facility] Gen. MEDICATIONS ergocalciferol, vitamin D2, [...] Rubor of Dependency: Negative (Y) Positive (N) [place] Examination: Comments: +3 edema BLEs Measurements: Right Calf: 60 cm Right Ankle: 34.5 cm Left Calf: 54 cm Left Ankle: 37 cm Neuro: Alert AND oriented x3, ENGINE RESEARCH ENGINEER II-XII grossly intact, reflexes 2+ and symmetric, [...] No acute fracture or bony destruction. ? Credit Professional: DWIGHT ? Transcribe Date/Time: Oct 14 2017 [...] No acute fracture or bony destruction. ? Credit Professional: DWIGHT ? Transcribe Date/Time: Oct 14 2017 [...] and Edge attached to base Periwound Tissue: [place], dry and intact, No fluctuance, induration or [...] and Edge attached to base Periwound Tissue: [place], dry and intact, No fluctuance, induration or [...] -- Week 5 Wound Bed (Post-debridement): 100% [place] % of Healthy tissue: Undermining: No Tunneling: No Tendon/bone exposed: NO Wound Edge/Margins: Well-defined wound edges and Edge attached to base Periwound Tissue: [place], dry and intact, No fluctuance, induration or [...] our RN. Luis Simons CNP Charge Capture: [id number] CNOV Observed: 05/22/2018 Status: COMPLETED Source: [place] 3:45 PM [facility] OTHER CAMPUS REPOSITORY Office Visit (PLWDMR) ROSA BELTRAN ([id number]) 1935 F Date Time Provider Department 05/22/18 [...] year old female who presents to the [facility] for further evaluation [...] followed by Dr. Jaskaran Chance at the [facility]. It was felt that her home support system was inadequate and that she may not have the resources in her home environment to appropriately care for her needs. In this regard, a social worker palliative care consultation had been recommended on several occassions, but patient apparently insisted on remaining in her home environment despite that there was thought that is may be less than optimal. The patient is here at the [facility] for a second opinion regarding management of the abovementioned bilateral lower extremity wounds. She offers no other complaints. She denies any fevers, chills, wound-related pain or other related symptoms. INTERVAL HISTORY: 05/19/18 Patient presents for a routine follow- up. She was recently admitted to [facility] in 03/2018 with right leg wound infection. [...] with hypoxia (HCC) 09/30/2017 - Atrial fibrillation ([facility]) - CAD (coronary artery disease) Dr. Brenda [...] 10/08/2016 - COPD (chronic obstructive pulmonary disease) ([facility]) - Depressive disorder 12/29/2016 - Disruption of surgical wound 09/2015 Right tibia - Dorsalgia 12/29/2016 - Dyslipidemia - Gastric bypass status for obesity 12/29/2016 - Gastroesophageal reflux disease without esophagitis 10/08/2016 - HTN (hypertension) - Muscular weakness 12/29/2016 - Primary osteoarthritis involving multiple joints 12/29/2016 - Pure hypercholesterolemia - Rheumatoid arthritis ([facility]) 2007 - Sleep apnea - Stented coronary artery 12/29/2016 PAST SURGICAL HISTORY Procedure Laterality Date - CC CORONARY STENT 11/20/2012 [facility] - CC CORONARY STENT 12/20/2014 [facility]IM[facility], Cfx - SE[facility] - GASTRIC BYPASS HX 1986 - HERNIA REPAIR HX 1987; 1989 - PAST SURGICAL HISTORY OF Right 09/2015 right tibia fracture ORIF - PAST SURGICAL HISTORY OF Right 01/20/2016 Removal of hardware, right tibia - TOTAL KNEE REPLACEMENT Right 2003 [facility] Gen. - TOTAL KNEE REPLACEMENT Left 2004 [facility] Gen. MEDICATIONS ergocalciferol, vitamin D2, [...] Rubor of Dependency: Negative (Y) Positive (N) [place] Examination: Comments: +3 edema BLEs Measurements: Right Calf: 60 cm Right Ankle: 34.5 cm Left Calf: 54 cm Left Ankle: 37 cm Neuro: Alert AND oriented x3, ENGINE RESEARCH ENGINEER II-XII grossly intact, reflexes 2+ and symmetric, [...] No acute fracture or bony destruction. ? Credit Professional: DWIGHT ? Transcribe Date/Time: Oct 14 2017 [...] No acute fracture or bony destruction. ? Credit Professional: DWIGHT ? Transcribe Date/Time: Oct 14 2017 [...] and Edge attached to base Periwound Tissue: [place], dry and intact, No fluctuance, induration or [...] and Edge attached to base Periwound Tissue: [place], dry and intact, No fluctuance, induration or [...] -- Week 5 Wound Bed (Post-debridement): 100% [place] % of Healthy tissue: Undermining: No Tunneling: No Tendon/bone exposed: NO Wound Edge/Margins: Well-defined wound edges and Edge attached to base Periwound Tissue: [place], dry and intact, No fluctuance, induration or [...] our RN. Luis Simons CNP Charge Capture: [id number] Tiffanie Humphrey RN, RN 05/22/2018 3:53 PM [...] Tiffanie Humphrey RN Referring Provider: CHINTAN DEMPSEY [[id number]] Allergies As of Date: 05/22/2018 (No Known [...] Leg ulcer, right, with fat layer exposed ([facility]) *INVALID FOR* Venous stasis ulcer of right [...] More... CKD (chronic kidney disease), stage III ([facility]) [*INVALID FOR* Priority: D More... Hyperkalemia [E87.5] [...] PROTIME W/INR Collected: 05/22/2018 Status: F Source: [place] 6:38 AM [facility] [place] [facility] REPOSITORY TYPE CODE TESTS RESULT OUT OF REFERENCE UNITS RANGE LAB L9200.1001 11.9-14.4 SEC High PROTIME ISTAT 31.5 Result Comment: Reference Range 11.9 - 14.4 LAB L9200.2000 Normal INR ISTAT 2.80 Result Comment: Critical Value > 3.5 Performed By: #### L9200.0000 #### [facility] Point of Care [address] [place] [address] PROGRESS Observed: 05/19/2018 Status: COMPLETED Source: [place] 1:00 PM CLINIC OTHER CAMPUS REPOSITORY HNO ID: [id number] Author: Luis Lyles (Telecommunication Engineer) Carla Service: (none) Author Type: Nurse Practitioner Type: Progress Notes Filed: 06/01/2018 1:58 PM Note Text: DATE OF VISIT: 05/19/2018 REASON FOR VISIT: Non-healing lower extremity wound. HISTORY OF PRESENT ILLNESS: Rosa Beltran is a 81 year old female who presents to the [facility] for further evaluation [...] followed by Dr. Jaskaran Chance at the [facility]. It was felt that her home support system was inadequate and that she may not have the resources in her home environment to appropriately care for her needs. In this regard, a social worker palliative care consultation had been recommended on several occassions, but patient apparently insisted on remaining in her home environment despite that there was thought that is may be less than optimal. The patient is here at the [facility] for a second opinion regarding management of the abovementioned bilateral lower extremity wounds. She offers no other complaints. She denies any fevers, chills, wound-related pain or other related symptoms. INTERVAL HISTORY: 05/19/18 Patient presents for a routine follow- up. She was recently admitted to [facility] in 03/2018 with right leg wound infection. [...] with hypoxia (HCC) 09/30/2017 - Atrial fibrillation ([facility]) - CAD (coronary artery disease) Dr. Brenda [...] 10/08/2016 - COPD (chronic obstructive pulmonary disease) ([facility]) - Depressive disorder 12/29/2016 - Disruption of surgical wound 09/2015 Right tibia - Dorsalgia 12/29/2016 - Dyslipidemia - Gastric bypass status for obesity 12/29/2016 - Gastroesophageal reflux disease without esophagitis 10/08/2016 - HTN (hypertension) - Muscular weakness 12/29/2016 - Primary osteoarthritis involving multiple joints 12/29/2016 - Pure hypercholesterolemia - Rheumatoid arthritis ([facility]) 2007 - Sleep apnea - Stented coronary artery 12/29/2016 PAST SURGICAL HISTORY Procedure Laterality Date - CC CORONARY STENT 11/20/2012 [facility] - CC CORONARY STENT 12/20/2014 KIMMY, Cfx - SECTION HX - COLONOSCOPY 06/10/2017 [facility], Nonspecific cecal ulcer - GASTRIC BYPASS HX 1986 - HERNIA REPAIR HX 1988; 1989 - PAST SURGICAL HISTORY OF Right 09/2015 right tibia fracture ORIF - PAST SURGICAL HISTORY OF Right 01/20/2016 Removal of hardware, right tibia - TOTAL KNEE REPLACEMENT Right 2003 [facility] Gen. - TOTAL KNEE REPLACEMENT Left 2004 [facility] Gen. MEDICATIONS ergocalciferol, vitamin D2, [...] Rubor of Dependency: Negative (Y) Positive (N) [place] Examination: Comments: +3 edema BLEs Measurements: Right Calf: 60 cm Right Ankle: 34.5 cm Left Calf: 54 cm Left Ankle: 37 cm Neuro: Alert AND oriented x3, ENGINE RESEARCH ENGINEER II-XII grossly intact, reflexes 2+ and symmetric, [...] arterial doppler study bilateral lower extremities Findings: INMISHA 1.04 to the right and 1.0 to [...] No acute fracture or bony destruction. ? Credit Professional: PSCB ? Transcribe Date/Time: Oct 14 2017 [...] No acute fracture or bony destruction. ? Credit Professional: DWIGHT ? Transcribe Date/Time: Oct 14 2017 [...] and Edge attached to base Periwound Tissue: [place], dry and intact, No fluctuance, induration or [...] and Edge attached to base Periwound Tissue: [place], dry and intact, No fluctuance, induration or [...] -- Week 5 Wound Bed (Post-debridement): 100% [place] % of Healthy tissue: Undermining: No Tunneling: No Tendon/bone exposed: NO Wound Edge/Margins: Well-defined wound edges and Edge attached to base Periwound Tissue: [place], dry and intact, No fluctuance, induration or [...] our RN. Luis Simons CNP Charge Capture: [id number] CNOV Observed: 05/19/2018 Status: COMPLETED Source: [place] 1:00 PM CLIN[facility] OTHER CAMPUS REPOSITORY Office Visit (PLWDMR) ROSA BELTRAN ([id number]) 1935 F Date Time Provider Department 05/19/18 1:00 PM LUIS SIMONS, (LINOTYPER) PLWDMR During your visit today, we recorded the following information about you: Temperature Pulse Respiration Blood pressure 98.4 degrees 67/minute 19/minute 121/75 Luis Simons APRN.CNP 06/01/2018 1:58 PM Signed DATE OF VISIT: 05/19/2018 REASON FOR VISIT: Non-healing lower extremity wound. HISTORY OF PRESENT ILLNESS: Rosa Beltran is a 81 year old female who presents to the [facility] for further evaluation [...] followed by Dr. Jaskaran Chance at the [facility]. It was felt that her home support system was inadequate and that she may not have the resources in her home environment to appropriately care for her needs. In this regard, a social worker palliative care consultation had been recommended on several occassions, but patient apparently insisted on remaining in her home environment despite that there was thought that is may be less than optimal. The patient is here at the [facility] for a second opinion regarding management of the abovementioned bilateral lower extremity wounds. She offers no other complaints. She denies any fevers, chills, wound-related pain or other related symptoms. INTERVAL HISTORY: 05/19/18 Patient presents for a routine follow- up. She was recently admitted to [facility] in 03/2018 with right leg wound infection. [...] 10/08/2016 - COPD (chronic obstructive pulmonary disease) ([facility]) - Depressive disorder 12/29/2016 - Disruption of surgical wound 09/2015 Right tibia - Dorsalgia 12/29/2016 - Dyslipidemia - Gastric bypass status for obesity 12/29/2016 - Gastroesophageal reflux disease without esophagitis 10/08/2016 - HTN (hypertension) - Muscular weakness 12/29/2016 - Primary osteoarthritis involving multiple joints 12/29/2016 - Pure hypercholesterolemia - Rheumatoid arthritis ([facility]) 2007 - Sleep apnea - Stented coronary artery 12/29/2016 PAST SURGICAL HISTORY Procedure Laterality Date - CC CORONARY STENT 11/20/2012 [facility] - CC CORONARY STENT 12/20/2014 KIMMY, Cfx - SECTION HX - COLONOSCOPY 06/10/2017 [facility], Nonspecific cecal ulcer - GASTRIC BYPASS HX 1986 - HERNIA REPAIR HX 1987; 1989 - PAST SURGICAL HISTORY OF Right 09/2015 right tibia fracture ORIF - PAST SURGICAL HISTORY OF Right 01/20/2016 Removal of hardware, right tibia - TOTAL KNEE REPLACEMENT Right 2003 [facility] Gen. - TOTAL KNEE REPLACEMENT Left 2004 [facility] Gen. MEDICATIONS ergocalciferol, vitamin D2, [...] Rubor of Dependency: Negative (Y) Positive (N) [place] Examination: Comments: +3 edema BLEs Measurements: Right Calf: 60 cm Right Ankle: 34.5 cm Left Calf: 54 cm Left Ankle: 37 cm Neuro: Alert AND oriented x3, ENGINE RESEARCH ENGINEER II-XII grossly intact, reflexes 2+ and symmetric, [...] No acute fracture or bony destruction. ? Credit Professional: DWIGHT ? Transcribe Date/Time: Oct 14 2017 [...] No acute fracture or bony destruction. ? Credit Professional: DWIGHT ? Transcribe Date/Time: Oct 14 2017 [...] and Edge attached to base Periwound Tissue: [place], dry and intact, No fluctuance, induration or [...] and Edge attached to base Periwound Tissue: [place], dry and intact, No fluctuance, induration or [...] -- Week 5 Wound Bed (Post-debridement): 100% [place] % of Healthy tissue: Undermining: No Tunneling: No Tendon/bone exposed: NO Wound Edge/Margins: Well-defined wound edges and Edge attached to base Periwound Tissue: [place], dry and intact, No fluctuance, induration or [...] our RN. Luis Simons CNP Charge Capture: [id number] Kayla Swenson Amadeo Noonan 05/19/2018 2:05 PM [...] following changes to the Wound Center at [phone] or go to the Emergency Department: ? [...] Luis Simons, LOI/kgr Referring Provider: CHINTAN DEMPSEY [[id number]] Allergies As of Date: 05/19/2018 (No Known [...] following changes to the Wound Center at [phone] or go to the Emergency Department: ? [...] 06/01/18 LUCIANO Observed: 05/17/2018 Status: COMPLETED Source: [place] 12:00 AM CLINIC OTHER CAMPUS REPOSITORY Telephone (PLWDMR) ROSA BELTRAN ([id number]) 1935 F Date Time Provider Department 05/17/18 LUIS SIMONS, [facility]PER[facility] During your visit today, we recorded the following information about you: Maribel Bush 05/17/2018 3:11 PM Signed Malka called from [facility] and she said they do not have Coban 2 but it should arrive in the next day or two what could they substitute for this until it comes in or can this wait until Tuesday when patient comes in for her appointment. The Drymax has arrived and [facility] also asked if there are changes to the dressing if you could send a dressing change for a couple days until they are orderded if possible. Thank you. She can be reached at [phone]. Luis Simons APRN.LOI 05/18/2018 11:09 AM Signed ----- Message from Mariebl Bush sent at 05/15/2018 12:56 PM EDT ----- Regarding: compression dressing Contact: You spoke to Jessica Tanner earlier regarding above patient and she stated they are not able to do Compression Dressings on patient due to not enough people are trained and she will notify the social services analyst at The facility. She would like you to call her at [phone]. Thank you. Luis Simons APRN.LOI 05/30/2018 12:39 [...] 05/19/18 POTASSIUM Collected: 05/16/2018 Status: F Source: [place] 6:45 AM [facility] REPOSITORY Order Comment: 303-2 TYPE CODE TESTS RESULT OUT OF RANGE REFERENCE UNITS LAB L501.5600 3.5-5.1 mmol/L Normal K 4.7 Performed By: #### [id number] #### [facility] [address] [place] [address] [place], [address] PROGRESS Observed: 05/15/2018 Status: COMPLETED Source: [place] 3:00 PM [facility] REPOSITORY HNO ID: [id number] Author: Luis Simons Service: (none) Author Type: Nurse Practitioner Type: Progress Notes Filed: 05/26/2018 6:46 AM Note Text: DATE OF VISIT: 05/15/2018 REASON FOR VISIT: Non-healing lower extremity wound. HISTORY OF PRESENT ILLNESS: Rosa Beltran is a 81 year old female who presents to the [facility] for further evaluation [...] followed by Dr. Jaskaran Chance at the [facility]. It was felt that her home support system was inadequate and that she may not have the resources in her home environment to appropriately care for her needs. In this regard, a social worker palliative care consultation had been recommended on several occassions, but patient apparently insisted on remaining in her home environment despite that there was thought that is may be less than optimal. The patient is here at the [facility] for a second opinion [...] CAD (coronary artery disease) Dr. Brenda Awan [facility], Prom[employer] element KIMMY LAD 11/20/2012, Stress test [...] 10/08/2016 - COPD (chronic obstructive pulmonary disease) ([facility]) - Depressive disorder 12/29/2016 - Disruption of surgical wound 09/2015 Right tibia - Dorsalgia 12/29/2016 - Dyslipidemia - Gastric bypass status for obesity 12/29/2016 - Gastroesophageal reflux disease without esophagitis 10/08/2016 - HTN (hypertension) - Muscular weakness 12/29/2016 - Primary osteoarthritis involving multiple joints 12/29/2016 - Pure hypercholesterolemia - Rheumatoid arthritis ([facility]) 2007 - Sleep apnea - Stented coronary artery 12/29/2016 PAST SURGICAL HISTORY Procedure Laterality Date - CC CORONARY STENT 11/20/2012 KIMMY LAD - CC CORONARY STENT 12/20/2014 KIMMY, Cfx - SECTION HX - COLONOSCOPY 06/10/2017 [facility], Nonspecific cecal ulcer - GASTRIC BYPASS HX 1986 - HERNIA REPAIR HX 1987; 1989 - PAST SURGICAL HISTORY OF Right 09/2015 right tibia fracture ORIF - PAST SURGICAL HISTORY OF Right 01/20/2016 Removal of hardware, right tibia - TOTAL KNEE REPLACEMENT Right 2003 [facility] Gen. - TOTAL KNEE REPLACEMENT Left 2004 [facility] Gen. MEDICATIONS ergocalciferol, vitamin D2, [...] Rubor of Dependency: Negative (Y) Positive (N) [place]-We[place]in Examination: Comments: Measurements: Right Calf: 57 cm Right Ankle: 37 cm Left Calf: 50.5 cm Left Ankle: 33.5 cm Neuro: Alert AND oriented x3, ENGINE RESEARCH ENGINEER II-XII grossly intact, reflexes 2+ and symmetric, [...] No acute fracture or bony destruction. ? Credit Professional: DWIGHT ? Transcribe Date/Time: Oct 14 2017 [...] No acute fracture or bony destruction. ? Credit Professional: DWIGHT ? Transcribe Date/Time: Oct 14 2017 [...] and Edge attached to base Periwound Tissue: [place], dry and intact, No fluctuance, induration or [...] and Edge attached to base Periwound Tissue: [place], dry and intact, No fluctuance, induration or [...] -- Week 5 Wound Bed (Post-debridement): 100% [place] % of Healthy tissue: Undermining: No Tunneling: No Tendon/bone exposed: NO Wound Edge/Margins: Well-defined wound edges and Edge attached to base Periwound Tissue: [place], dry and intact, No fluctuance, induration or [...] Systemis Rx: Begin: Doxycycline to prevent reoccurant [id number] mg PO BID x 14 days then [...] worsening symptoms. Luis Simons CNP Charge Capture: [id number]; [id number] (x5) CNOV Observed: 05/15/2018 Status: COMPLETED Source: [place] 3:00 PM [facility] REPOSITORY Office Visit (PLWDMR) ROSA BELTRAN ([id number]) 1935 F Date Time Provider Department 05/15/18 3:00 PM LUIS SIMONS, (LINOTYPER) PLWDMR During your visit today, we recorded the following information about you: Temperature Pulse Respiration Blood pressure 97.9 degrees 75/minute 17/minute 148/75 Luis Simons APRN.CNP 08/17/2018 10:55 AM Addendum DATE OF VISIT: 05/15/2018 REASON FOR VISIT: Non-healing lower extremity wound. HISTORY OF PRESENT ILLNESS: Rosa Beltran is a 81 year old female who presents to the [facility] for further evaluation [...] followed by Dr. Jaskaran Chance at the [facility]. It was felt that her home support system was inadequate and that she may not have the resources in her home environment to appropriately care for her needs. In this regard, a social worker palliative care consultation had been recommended on several occassions, but patient apparently insisted on remaining in her home environment despite that there was thought that is may be less than optimal. The patient is here at the [facility] for a second opinion [...] dressing changes. On 04/20/18, she presented to [facility] in [place] as she noticed worsening drainage from her right leg along with pain, increased swelling, and warmth. White count was elevated at 21,000 with a left shift. X-rays of her right leg were done, which did not show any acute changes. She was admitted to [facility] for further management. She was seen by [...] were adjusted.?[facility]18 in stable condition. Today, [...] with hypoxia (HCC) 09/30/2017 - Atrial fibrillation ([facility]) - CAD (coronary artery disease) Dr. Brenda [...] 10/08/2016 - COPD (chronic obstructive pulmonary disease) ([facility]) - Depressive disorder 12/29/2016 - Disruption of surgical wound 09/2015 Right tibia - Dorsalgia 12/29/2016 - Dyslipidemia - Gastric bypass status for obesity 12/29/2016 - Gastroesophageal reflux disease without esophagitis 10/08/2016 - HTN (hypertension) - Muscular weakness 12/29/2016 - Primary osteoarthritis involving multiple joints 12/29/2016 - Pure hypercholesterolemia - Rheumatoid arthritis ([facility]) 2007 - Sleep apnea - Stented coronary artery 12/29/2016 PAST SURGICAL HISTORY Procedure Laterality Date - CC CORONARY STENT 11/20/2012 KIMMY LAD - CC CORONARY STENT 12/20/2014 KIMMY, Cfx - SECTION HX - COLONOSCOPY 06/10/2017 [facility], Nonspecific cecal ulcer - GASTRIC BYPASS HX 1986 - HERNIA REPAIR HX 1987; 1989 - PAST SURGICAL HISTORY OF Right 09/2015 right tibia fracture ORIF - PAST SURGICAL HISTORY OF Right 01/20/2016 Removal of hardware, right tibia - TOTAL KNEE REPLACEMENT Right 2003 [facility] Gen. - TOTAL KNEE REPLACEMENT Left 2004 [facility] Gen. MEDICATIONS ergocalciferol, vitamin D2, [...] Rubor of Dependency: Negative (Y) Positive (N) [place]in Examination: Comments: Measurements: Right Calf: 57 cm Right Ankle: 34.5 cm Left Calf: 52.6 cm Left Ankle: 34.5 cm Neuro: Alert AND oriented x3, ENGINE RESEARCH ENGINEER II-XII grossly intact, reflexes 2+ and symmetric, [...] No acute fracture or bony destruction. ? Credit Professional: DWIGHT ? Transcribe Date/Time: Oct 14 2017 [...] No acute fracture or bony destruction. ? Credit Professional: PSCVerónica ? Transcribe Date/Time: Oct 14 2017 ?4:02P Dictated by : ZURDO SANTSO MD ? 10/14/17 XR 2 View Tib/Fib [...] and Edge attached to base Periwound Tissue: [place], dry and intact, No fluctuance, induration or [...] and Edge attached to base Periwound Tissue: [place], dry and intact, No fluctuance, induration or [...] -- Week 5 Wound Bed (Post-debridement): 100% [place] % of Healthy tissue: Undermining: No Tunneling: No Tendon/bone exposed: NO Wound Edge/Margins: Well-defined wound edges and Edge attached to base Periwound Tissue: [place], dry and intact, No fluctuance, induration or [...] initial assessment today Wound Bed (Post-debridement): 100% [place] % of Healthy tissue: Undermining: No Tunneling: [...] worsening symptoms. Luis Simons, LOI Charge Capture: [id number] Peter Jason MA, MA 05/15/2018 4:14 PM [...] following changes to the Wound Center at [phone] or go to the Emergency Department: ? [...] patients 02 was 86% during visit Luis Simosn CNP/csm Referring Provider: CHINTAN DEMPSEY [[id number]] Allergies As of Date: 05/15/2018 (No Known [...] following changes to the Wound Center at [phone] or go to the Emergency Department: ? [...] 05/26/18 PROGRESS Observed: 05/15/2018 Status: COMPLETED Source: [place] 3:00 PM [facility] REPOSITORY HNO ID: [id number] Author: Luis Lyles (Telecommunication Engineer) Carla Service: (none) Author Type: Nurse Practitioner Type: Progress Notes Filed: 08/17/2018 10:55 AM Note Text: DATE OF VISIT: 05/15/2018 REASON FOR VISIT: Non-healing lower extremity wound. HISTORY OF PRESENT ILLNESS: Rosa Beltran is a 81 year old female who presents to the [facility] for further evaluation [...] followed by Dr. Jaskaran Chance at the [facility]. It was felt that her home support system was inadequate and that she may not have the resources in her home environment to appropriately care for her needs. In this regard, a social worker palliative care consultation had been recommended on several occassions, but patient apparently insisted on remaining in her home environment despite that there was thought that is may be less than optimal. The patient is here at the [facility] for a second opinion [...] nutritional support. She denies fever or chills. 7/11/18 Patient was last seen here at the [...] dressing changes. On 04/20/18, she presented to [facility] in [place] as she noticed worsening drainage from her right leg along with pain, increased swelling, and warmth. White count was elevated at 21,000 with a left shift. X-rays of her right leg were done, which did not show any acute changes. She was admitted to [facility] for further management. She was seen by [...] were adjusted.?The [facility] was [facility] on 04[facility]/18 in stable condition. Today, [...] with hypoxia (HCC) 09/30/2017 - Atrial fibrillation ([facility]) - CAD (coronary artery disease) Dr. Brenda [...] Cecal ulcer 06/10/2017 - Chronic atrial fibrillation ([facility]) 10/08/2016 - COPD (chronic obstructive pulmonary disease) ([facility]) - Depressive disorder 12/29/2016 - Disruption of surgical wound 09/2015 Right tibia - Dorsalgia 12/29/2016 - Dyslipidemia - Gastric bypass status for obesity 12/29/2016 - Gastroesophageal reflux disease without esophagitis 10/08/2016 - HTN (hypertension) - Muscular weakness 12/29/2016 - Primary osteoarthritis involving multiple joints 12/29/2016 - Pure hypercholesterolemia - Rheumatoid arthritis ([facility]) 2007 - Sleep apnea - Stented coronary artery 12/29/2016 PAST SURGICAL HISTORY Procedure Laterality Date - CC CORONARY STENT 11/20/2012 KIMMY LAD - CC CORONARY STENT 12/20/2014 KIMMY, Cfx - SECTION HX - COLONOSCOPY 06/10/2017 [facility], Nonspecific cecal ulcer - GASTRIC BYPASS HX 1986 - HERNIA REPAIR HX 1987; 1989 - PAST SURGICAL HISTORY OF Right 09/2015 right tibia fracture ORIF - PAST SURGICAL HISTORY OF Right 01/20/2016 Removal of hardware, right tibia - TOTAL KNEE REPLACEMENT Right 2003 [facility] Gen. - TOTAL KNEE REPLACEMENT Left 2004 [facility] Gen. MEDICATIONS ergocalciferol, vitamin D2, [...] Rubor of Dependency: Negative (Y) Positive (N) [place]in Examination: Comments: Measurements: Right Calf: 57 cm Right Ankle: 34.5 cm Left Calf: 52.6 cm Left Ankle: 34.5 cm Neuro: Alert AND oriented x3, ENGINE RESEARCH ENGINEER II-XII grossly intact, reflexes 2+ and symmetric, [...] No acute fracture or bony destruction. ? Credit Professional: DWIGHT ? Transcribe Date/Time: Oct 14 2017 [...] No acute fracture or bony destruction. ? Credit Professional: DWIGHT ? Transcribe Date/Time: Oct 14 2017 [...] and Edge attached to base Periwound Tissue: [place], dry and intact, No fluctuance, induration or [...] and Edge attached to base Periwound Tissue: [place], dry and intact, No fluctuance, induration or [...] -- Week 5 Wound Bed (Post-debridement): 100% [place] % of Healthy tissue: Undermining: No Tunneling: No Tendon/bone exposed: NO Wound Edge/Margins: Well-defined wound edges and Edge attached to base Periwound Tissue: [place], dry and intact, No fluctuance, induration or [...] initial assessment today Wound Bed (Post-debridement): 100% [place] % of Healthy tissue: Undermining: No Tunneling: [...] worsening symptoms. Luis Simons CNP Charge Capture: [id number] PROTIME W/INR Collected: 05/11/2018 Status: F Source: [place] 6:21 AM [facility] REPOSITORY TYPE CODE TESTS RESULT OUT OF REFERENCE UNITS RANGE LAB L9200.1001 11.9-14.4 SEC High PROTIME ISTAT 27.3 Result Comment: Reference Range 11.9 - 14.4 LAB L9200.2000 Normal INR ISTAT 2.40 Result Comment: Critical Value > 3.5 Performed By: #### [id number] #### [facility] Point of Care [address] [place] [address] PROGRESS Observed: 05/10/2018 Status: COMPLETED Source: [place] 11:02 AM [facility] REPOSITORY HNO ID: [id number] Author: Tiffanie (Rn) ELENA Humphrey Service: (none) [...] patient tolerated it well without complications. Tiffanie Humphrye RN PROGRESS Observed: 05/10/2018 Status: COMPLETED Source: [place] 10:30 AM [facility] REPOSITORY HNO ID: [id number] Author: Luis Simons Service: (none) Author Type: Nurse Practitioner Type: Progress Notes Filed: 08/17/2018 5:26 AM Note Text: DATE OF VISIT: 05/10/2018 REASON FOR VISIT: Non-healing lower extremity wound. HISTORY OF PRESENT ILLNESS: Rosa Beltran is a 81 year old female who presents to the [facility] for further evaluation [...] followed by Dr. Jaskaran Chance at the [facility]. It was felt that her home support system was inadequate and that she may not have the resources in her home environment to appropriately care for her needs. In this regard, a social worker palliative care consultation had been recommended on several occassions, but patient apparently insisted on remaining in her home environment despite that there was thought that is may be less than optimal. The patient is here at the [facility] for a second opinion [...] dressing changes. On 04/20/18, she presented to [facility] in [place] as she noticed worsening drainage from her right leg along with pain, increased swelling, and warmth. White count was elevated at 21,000 with a left shift. X-rays of her right leg were done, which did not show any acute changes. She was admitted to [facility] for further management. She was seen by [...] were adjusted.?The patient was [facility] a [facility] on 04/26/18 in stable condition. Today, [...] hypothyroidism - Acute respiratory failure with hypoxia ([facility]) 09/30/2017 - Atrial fibrillation ([facility]) - CAD (coronary artery disease) Dr. Brenda [...] 10/08/2016 - COPD (chronic obstructive pulmonary disease) ([facility]) - Depressive disorder 12/29/2016 - Disruption of surgical wound 09/2015 Right tibia - Dorsalgia 12/29/2016 - Dyslipidemia - Gastric bypass status for obesity 12/29/2016 - Gastroesophageal reflux disease without esophagitis 10/08/2016 - HTN (hypertension) - Muscular weakness 12/29/2016 - Primary osteoarthritis involving multiple joints 12/29/2016 - Pure hypercholesterolemia - Rheumatoid arthritis ([facility]) 2007 - Sleep apnea - Stented coronary artery 12/29/2016 PAST SURGICAL HISTORY Procedure Laterality Date - CC CORONARY STENT 11/20/2012 KIMMY LAD - CC CORONARY STENT 12/20/2014 KIMMY, Cfx - SECTION HX - COLONOSCOPY 06/10/2017 [facility], Nonspecific cecal ulcer - GASTRIC BYPASS HX 1987 - HERNIA REPAIR HX 1988; 1989 - PAST SURGICAL HISTORY OF Right 09/2015 right tibia fracture ORIF - PAST SURGICAL HISTORY OF Right 01/20/2016 Removal of hardware, right tibia - TOTAL KNEE REPLACEMENT Right 2003 [facility] Gen. - TOTAL KNEE REPLACEMENT Left 2004 [facility] Gen. MEDICATIONS ergocalciferol, vitamin D2, [...] Rubor of Dependency: Negative (Y) Positive (N) [place]in Examination: Comments: Measurements: Right Calf: 57 cm Right Ankle: 34.5 cm Left Calf: 52.6 cm Left Ankle: 34.5 cm Neuro: Alert AND oriented x3, ENGINE RESEARCH ENGINEER II-XII grossly intact, reflexes 2+ and symmetric, [...] No acute fracture or bony destruction. ? Credit Professional: DWIGHT ? Transcribe Date/Time: Oct 14 2017 [...] No acute fracture or bony destruction. ? Credit Professional: DWIGHT ? Transcribe Date/Time: Oct 14 2017 [...] and Edge attached to base Periwound Tissue: [place], dry and intact, No fluctuance, induration or [...] and Edge attached to base Periwound Tissue: [place], dry and intact, No fluctuance, induration or [...] -- Week 5 Wound Bed (Post-debridement): 100% [place] % of Healthy tissue: Undermining: No Tunneling: No Tendon/bone exposed: NO Wound Edge/Margins: Well-defined wound edges and Edge attached to base Periwound Tissue: [place], dry and intact, No fluctuance, induration or [...] initial assessment today Wound Bed (Post-debridement): 100% [place] % of Healthy tissue: Undermining: No Tunneling: [...] insufficiency completed. Pt advised to see Dr. K. Mcnair of Vascular Surgery for further evaluation given her underlying PVD to help with wound healing. Follow-up is scheduled in 1 week, sooner with any concerns or worsening symptoms. Luis Simons CNP Charge Capture: [id number]; [id number] (k1) CNOV Observed: 05/10/2018 Status: COMPLETED Source: [place] 10:30 AM [facility] REPOSITORY Office Visit (PLWDMR) ROSA BELTRAN ([id number]) 1935 F Date Time Provider Department 05/10/18 10:30 AM LUIS SIMONS, (LINOTYPER) PLWDMR During your visit today, we recorded the following information about you: Temperature Pulse Respiration Blood pressure 98.5 degrees 75/minute 19/minute 130/70 Luis Simons APRN.CNP 08/17/2018 5:26 AM Addendum DATE OF VISIT: 05/10/2018 REASON FOR VISIT: Non-healing lower extremity wound. HISTORY OF PRESENT ILLNESS: Rosa Beltran is a 81 year old female who presents to the [facility] for further evaluation [...] followed by Dr. Jaskaran Chance at the [facility]. It was felt that her home support system was inadequate and that she may not have the resources in her home environment to appropriately care for her needs. In this regard, a social worker palliative care consultation had been recommended on several occassions, but patient apparently insisted on remaining in her home environment despite that there was thought that is may be less than optimal. The patient is here at the [facility] for a second opinion [...] dressing changes. On 04/20/18, she presented to [facility] in [place] as she noticed worsening drainage from her right leg along with pain, increased swelling, and warmth. White count was elevated at 21,000 with a left shift. X-rays of her right leg were done, which did not show any acute changes. She was admitted to [facility] for further management. She was seen by [...] were adjusted.?The patient was [facility] to a jail facility on 04/26/18 in stable condition. Today, [...] with hypoxia (HCC) 09/30/2017 - Atrial fibrillation ([facility]) - CAD (coronary artery disease) Dr. Brenda Awan [facility], [employer] element KIMMY LAD 11/20/2012, Stress test 04/2014 inferoapical reversible ischemia,small LVEF 48-50%, LHC 12/2014 L main-normal, LAD widely patent, Cx diffuse mild luminal irregularities with 80%focal stenosis distal, RCA dominant with minimal luminal irregularities. PTCA and Promus premier KIMMY distal Cx 12/20/2014, RX aspirin and plavix - Cecal ulcer 06/10/2017 - Chronic atrial fibrillation (HCC) 10/08/2016 - COPD (chronic obstructive pulmonary disease) ([facility]) - Depressive disorder 12/29/2016 - Disruption of [...] Cfx - SECTION HX - COLONOSCOPY 06/10/2017 [facility], Nonspecific cecal ulcer - GASTRIC BYPASS HX 1986 - HERNIA REPAIR HX 1987; 1989 - PAST SURGICAL HISTORY OF Right 09/2015 right tibia fracture ORIF - PAST SURGICAL HISTORY OF Right 01/20/2016 Removal of hardware, right tibia - TOTAL KNEE REPLACEMENT Right 2003 [facility] Gen. - TOTAL KNEE REPLACEMENT Left 2004 [facility] Gen. MEDICATIONS ergocalciferol, vitamin D2, [...] Rubor of Dependency: Negative (Y) Positive (N) [place]-We[place]in Examination: Comments: Measurements: Right Calf: 57 cm Right Ankle: 34.5 cm Left Calf: 52.6 cm Left Ankle: 34.5 cm Neuro: Alert AND oriented x3, ENGINE RESEARCH ENGINEER II-XII grossly intact, reflexes 2+ and symmetric, [...] No acute fracture or bony destruction. ? Credit Professional: PSCB ? Transcribe Date/Time: Oct 14 2017 [...] No acute fracture or bony destruction. ? Credit Professional: DWIGHT ? Transcribe Date/Time: Oct 14 2017 [...] and Edge attached to base Periwound Tissue: [place], dry and intact, No fluctuance, induration or [...] and Edge attached to base Periwound Tissue: [place], dry and intact, No fluctuance, induration or [...] -- Week 5 Wound Bed (Post-debridement): 100% [place] % of Healthy tissue: Undermining: No Tunneling: No Tendon/bone exposed: NO Wound Edge/Margins: Well-defined wound edges and Edge attached to base Periwound Tissue: [place], dry and intact, No fluctuance, induration or [...] initial assessment today Wound Bed (Post-debridement): 100% [place] % of Healthy tissue: Undermining: No Tunneling: [...] worsening symptoms. Luis Simons CNP Charge Capture: [id number]; [id number] (x5) Luis Simons APRN.LOI 08/17/2018 4:33 AM [...] instructions and has expressed intent to comply. Tiffaniemerrill Humphrey RN, RN 05/23/2018 7:05 AM Signed [...] following changes to the Wound Center at [phone] or go to the Emergency Department: ? [...] Luis Simons CNP/omarl Referring Provider: CHINTAN DEMPSEY [[id number]] Allergies As of Date: 05/10/2018 (No Known [...] following changes to the Wound Center at [phone] or go to the Emergency Department: ? [...] 05/23/18 PROCEDURE Observed: 05/10/2018 Status: COMPLETED Source: [place] 10:30 AM [facility] REPOSITORY HNO ID: [id number] Author: Luis Lyles (Telecommunication Engineer) Carla Service: (none) Author Type: Nurse Practitioner [...] Status: F Source: [place] [facility] 11:30 PM [facility] REPOSITORY Order Comment: How was Urine Obtained? [...] ESTERASE Negative Performed By: #### L400.2010 #### [facility] [address] [place], [address] Observed: 05/09/2018 Status: F Source: [place] CULTURE, URINE 11:30 PM [facility] REPOSITORY Urine Culture Culture exhibits no growth. Performed By: #### M100.0650 #### [facility] [address] [place], [address] CBC W/DIFF, AUTOMATED Collected: 05/09/2018 Status: F Source: [place] 1:25 PM [facility] REPOSITORY TYPE CODE TESTS RESULT OUT OF [...] Lymph 1.37 Performed By: #### L100.0100 #### [facility] [address] [place], [address] COMPREHENSIVE METABOLIC Collected: 05/09/2018 Status: F Source: [facility] 1:25 PM [facility] REPOSITORY TYPE CODE TESTS RESULT OUT OF [...] GAP 6 Performed By: #### L500.4050 #### [facility] [address] [place] [address], 922381 PROTIME W/INR Collected: 05/09/2018 Status: F Source: [place] 5:53 AM [facility] REPOSITORY TYPE CODE TESTS RESULT OUT OF REFERENCE UNITS RANGE LAB L9200.1001 11.9-14.4 SEC High PROTIME ISTAT 26.7 Result Comment: Reference Range 11.9 - 14.4 LAB L9200.2000 Normal INR ISTAT 2.30 Result Comment: Critical Value > 3.5 Performed By: #### L9200.0000 #### [facility] Point of Care [address] [place] [address] [id number] PROTIME W/INR Collected: 05/05/2018 Status: F Source: [place] 6:22 AM [facility] REPOSITORY TYPE CODE TESTS RESULT OUT OF REFERENCE UNITS RANGE LAB L9200.1001 11.9-14.4 SEC High PROTIME ISTAT 22.0 Result Comment: Reference Range 11.9 - 14.4 LAB L9200.2000 Normal INR ISTAT 1.90 Result Comment: Critical Value > 3.5 Performed By: #### L9200.0000 #### [facility] Point of Care [address] [place], [place] [address] PROTIME W/INR Collected: 05/04/2018 Status: F Source: [place] 5:27 AM [facility] REPOSITORY TYPE CODE TESTS RESULT OUT OF REFERENCE UNITS RANGE LAB L9200.1001 11.9-14.4 SEC High PROTIME ISTAT 18.3 Result Comment: Reference Range 11.9 - 14.4 LAB L9200.2000 Normal INR ISTAT 1.60 Result Comment: Critical Value > 3.5 Performed By: #### L9200.0000 #### [facility] Point of Care [address] [place] [address] PROTIME W/INR Collected: 05/03/2018 Status: F Source: [place] 5:48 AM [facility] REPOSITORY TYPE CODE TESTS RESULT OUT OF REFERENCE UNITS RANGE LAB L9200.1001 11.9-14.4 SEC High PROTIME ISTAT 17.8 Result Comment: Reference Range 11.9 - 14.4 LAB L9200.2000 Normal INR ISTAT 1.50 Result Comment: Critical Value > 3.5 Performed By: #### L9200.0000 #### [facility] Point of Care [address] [place] [address] PROTHROMBIN TIME W/INR Collected: 05/02/2018 Status: F Source: [place] 5:42 AM [facility] REPOSITORY Order Comment: ROOM 303 TYPE CODE TESTS RESULT OUT OF RANGE REFERENCE UNITS LAB L300.4150 11.7-14.9 SECONDS High PROTIME 16.9 LAB L300.4200 Normal INR 1.4 Performed By: #### L300.3900 #### [facility] [address] [place] [address]. [facility] [address] PROTIME W/INR Collected: 05/01/2018 Status: F Source: [place] 6:52 AM [facility] REPOSITORY TYPE CODE TESTS RESULT OUT OF REFERENCE UNITS RANGE LAB L9200.1001 11.9-14.4 SEC High PROTIME ISTAT 16.5 Result Comment: Reference Range 11.9 - 14.4 LAB L9200.2000 Normal INR ISTAT 1.40 Result Comment: Critical Value > 3.5 Performed By: #### L9200.0000 #### [facility] Point of Care [address] [place] [address] PROTHROMBIN TIME W/INR Collected: 04/29/2018 Status: F Source: [place] 7:35 AM [facility] REPOSITORY TYPE CODE TESTS RESULT OUT OF RANGE REFERENCE UNITS LAB L300.4150 11.7-14.9 SECONDS High PROTIME 17.1 LAB L300.4200 Normal INR 1.4 Performed By: #### L300.3900 #### [facility] [address] [place], [address] PROTHROMBIN TIME W/INR Collected: 04/28/2018 Status: F Source: [place] 6:12 AM [facility] REPOSITORY TYPE CODE TESTS RESULT OUT OF RANGE REFERENCE UNITS LAB L300.4150 11.7-14.9 SECONDS High PROTIME 18.5 LAB L300.4200 Normal INR 1.5 Performed By: #### L300.3900 #### [facility] [address] [place], [address] PROTHROMBIN TIME W/INR Collected: 04/27/2018 Status: F Source: [place] 6:40 AM [facility] REPOSITORY Order Comment: ROOM 303 TYPE CODE TESTS RESULT OUT OF RANGE REFERENCE UNITS LAB L300.4150 11.7-14.9 SECONDS High PROTIME 20.9 LAB L300.4200 Normal INR 1.8 Performed By: #### L300.3900 #### [facility] [address] [place], [address] CONSULT PROG Observed: 04/26/2018 Status: COMPLETED Source: [place] 12:33 PM [facility] REPOSITORY O ID: [id number] Author: Heather Lynn Service: Infectious Disease Author [...] NURSING PROG Observed: 04/26/2018 Status: COMPLETED Source: [place] 10:47 AM [facility] OTHER [facility] REPOSITORY HNO ID: [id number] Author: Yaneth (Rn) ELENA Roman Service: (none) Author Type: Registered Nurse Type: Nursing Progress Note Filed: 04/26/2018 12:52 PM Note Text: Nursing Progress Note Patient Name: Rosa Beltran Patient Location: [facility]-7/[id number] Daily Note: 0700: Assumed care of patient. Patient resting in bed w/eyes closed. No visible s/o pain or distress. Utilizing 2L n/c. IV fluids infusing w/o complication. Call banda in reach, bed down, safety maintained. 1230: Patient discharged to [facility] in stable condition. Left via wheelchair w/[facility]. Discharge paperwork and all personal belongings w/patient to facility. Report called to Keira. This note was completed by: Yaneth Roman RN PLAN OF CARE Observed: 04/26/2018 Status: COMPLETED Source: [place] 10:16 AM [facility] REPOSITORY HNO ID: [id number] Author: Yamilka Rosa (In Flight Crew Member) Service: (none) Author Type: (none) Type: Plan of Care Filed: 04/26/2018 10:16 AM Note Text: AUTOMOTIVE CUSTOMER EXPERIENCE ADVISOR BEDSIDE DELIVERY SURVEY 1. Patient to use [facility] Bedside Delivery - N/A 2. If fax, patient would like us to fax prescriptions to Pharmacy of choice a. Pharmacy: b. Location: c. Phone: 3. Insurance card on file - N/A 4. Credit card for payment - N/A Patient d/c'ing to SNF. CASE MANAGEM Observed: 04/26/2018 Status: COMPLETED Source: [place] 9:53 AM [facility] REPOSITORY HNO ID: [id number] Author: Yaneth Jimenez (Sw) Service: Care Management Author Type: Canal Equipment Mechanic Type: Care Mgt Progress Note Filed: 04/26/2018 9:58 AM Note Text: CARE MANAGEMENT DISCHARGE NOTE SERVICE DATE: 04/26/2018 SERVICE TIME: 9:53 AM LOS: 6 days Admission Date: 04/20/2018 DISCHARGE ARRANGEMENT (list agency and phone number) [facility] facility Provider: [facility] CAREGIVER ASSESSMENT: Caregiver is ready, willing and able to meet the patient's needs as recommended by the inter-professional team? Yes Patient's transition needs and plan for meeting these needs: Pt d/c to SNF where her needs will be met. Does the patient have an acute stroke diagnosis, or has the patient had a stroke during this admission? No HANDOFF COMMUNICATION: Client Application Support Engineer: Maritza Howe Primary Care Physician: Mani Newman TRANSPORTATION ARRANGEMENTS: Mode of Transportation: [employer] Agency and Phone #: [facility] ambulance ( [facility] ) [phone] / [phone]. Date of Trip: 04/26/2018 Type of Service: Wheelchair Is Patient Medicaid Pending: No Discussion of financial coverage occurred with Patient . Bus Inspector Location: [address] [place] [address] Destination: [facility] Financial Care Management Responsibility: None Estimated Charge: n/a Approving Electroencephalogram Technologist: n/a ADDITIONAL CONTACT RESOURCES: n/a D/c orders received for pt to d/c to SNF. Pt has been accepted by [facility]. Sw met with pt and her dtr in law bedside to discuss d/c plan. Pt reluctantly agreeable to SNF and requested wheelchair transport. [facility] to transport at 1145am today. IM letter explained and copy given to pt. Pt agreeable with d/c. No additional identified skilled needs nor questions at this time. Summary of care sent to PCC and PCP via [employer]. SIGNATURE: FRANCI Burns LSW PATIENT NAME: Rosa Beltran DATE: April 26, 2018 TIME: 9:53 AM PAGER/CONTACT #: [phone] CNDS Observed: 04/26/2018 Status: COMPLETED Source: [place] 9:35 AM [facility] REPOSITORY O ID: [id number] Author: Khai Edgar MD Service: Hospital Medicine [...] Team: Attending Provider: Khai Edgar MD Physician Director Trade: Justin Dangelo (Pa) Consulting: Heather Lynn Consulting: [...] for the wound and are sent to jail facility for compression dressing to be applied [...] Podiatry ID in [place] Follow up in [facility] ?wound is so much better with just debridmeent and wound care Recommended [facility] daily wound care and compression Follow Up Appointments Follow-Up Appointment When: In 1 week Patient/Parents to call for appointment?: Yes Chintan Dempsey DPM [phone] [facility] [address] PCP Requested Referral Additional Provider to Provider [...] pt 2 weeks ago. She does have [facility] who noticed worsening signs of infection today so sent her to ED. ? Consultants: Dr. Ramesh Lynn ? Disposition: [facility] facility Hospital course: The patient was admitted [...] Discharge tomorrow and hopefully patient will choose jail facility on oral antibiotics B Chronic atrial [...] None FOLLOW-UP APPOINTMENTS ALREADY SCHEDULED WITH A [facility] PROVIDER: Future Appointments Date Time Provider Department Center 04/28/2018 11:30 AM Luis Simons [facility] 06/08/2018 11:25 AM Ty [facility] 06/12/2018 2:20 PM [facility] DISCHARGE MEDICATION: Current Discharge Medication List [...] AM CBC Collected: 04/26/2018 Status: F Source: [place] 5:48 AM [facility] OTHER CAMPUS REPOSITORY TYPE CODE TESTS [...] 10.3 Performed By: #### CBC, CMP #### [facility] [address] [place] [address] COMP METABOLIC PANEL Collected: 04/26/2018 Status: F Source: [place] 5:48 AM [facility] OTHER [place] REPOSITORY TYPE CODE TESTS RESULT OUT OF REFERENCE UNITS RANGE LAB TP 6.3-8.0 g/dL Protein, Total 7.3 LAB ALB 3.9-4.9 g/dL Low Albumin 2.8 LAB CA 8.5-10.2 mg/dL Calcium, Total 8.5 LAB TBIL 0.2-1.3 mg/dL Bilirubin, Total 0.3 LAB ALKP 32-117 U/L Alkaline Phosphatase 66 LAB AST 13-35 U/L AST 25 LAB GLU 74-99 mg/dL Glucose 94 Result Comment: The [place] [employer] Association (ADA) provides guidance for cutoff [...] Standards of Medical Care in Diabetes 2016, [place] [employer]. Diabetes Care. 2016.39(Suppl 1). LAB [...] GFR. Performed By: #### CBC, CMP #### [facility] [address] [phone] PROTIME Collected: 04/26/2018 Status: F Source: [place] 5:48 AM [facility] OTHER [place] REPOSITORY TYPE CODE TESTS RESULT OUT OF RANGE REFERENCE UNITS LAB PSEC 9.7-13.0 sec High PT Sec 21.7 LAB INR 0.9-1.3 High PT INR 2.2 Result Comment: Vitamin K Antagonist (VKA) Therapeutic Range: INR 2 to 3 (Target INR of 2.5) Note: For patients treated with VKA drugs, such as warfarin, the [place] [employer] 2012 Guideline recommends [...] Chest 2012, 141:7S-47S Genevieve RA, et al. [facility] 2017, 70: 252-289 Performed By: #### PT #### [facility] [address] [place] [address] PT ED Observed: 04/25/2018 Status: COMPLETED Source: [place] 2:55 PM [facility] REPOSITORY HNO ID: [id number] Author: Tia Feldman (Pharmacist) Service: Pharmacy Author [...] on warfarin for 15 years. Abdulkadir Le (Pre Sales Network Engineer) Preceptor Addendum: This case has been reviewed and discussed with the certified pharmacy tech. I agree with the assessment/plan described by the student. Changes and additions to the details in the note are indicated by italics and . TIA FELDMAN, HERRERA NUTRITION Observed: 04/25/2018 Status: COMPLETED Source: [place] 2:12 PM [facility] REPOSITORY HNO ID: [id number] Author: Radha Caceres Service: Nutrition Therapy Author [...] PAGER: PROGRESS Observed: 04/25/2018 Status: COMPLETED Source: [place] 1:57 PM [facility] OTHER [facility] REPOSITORY HNO ID: [id number] Author: Khai Edgar MD Service: Hospital Medicine Author Type: Physician Type: Progress Notes Filed: 04/25/2018 1:57 PM Note Text: SERVICE DATE: 04/25/2018 SERVICE TIME: 1:57 PM HOSPITAL MEDICINE PROGRESS NOTE NIGHT AND WEEKEND COVERAGE: Nights: Please contact pager [phone]. Reason for Admission/Observation: Chronic venous stasis ulcer with the acute superimposed cellulitis HOSPITAL DAY ZERO: 04/20/2018 Presentation: 82 Y F with PMHx of venous stasis ulcer RLE, CAD s/p PCI, AF on coumadin, Pulm HTN,?HTN, HLD, BEBA, RA, hypothyroid??who is transferred from [place] ED with chronic RLE wounds with suspected acute cellulitis with elevated wbc. She was admitted last month, seen by ID, podiatry, had debridement in pt and as out pt 2 weeks ago. She does have [facility] who noticed worsening signs of infection today so sent her to ED. Consultants: Dr. Ramesh Lynn Disposition: [facility] facility SUBJECTIVE Interval HPI:No chest pain or [...] Discharge tomorrow and hopefully patient will choose jail facility on oral antibiotics B Chronic atrial [...] -- 04/20/18 2100 vte current anticoag therapy ([place], [place]) 04/20/182044 vte non-pharmacologic prophylaxis - none indicated ([place]) VTE Prophylaxis: VTE prophylaxis appropriate Plan of care discussed with: Patient, Case Management and RN SIGNATURE: Khai Edgar MD PATIENT NAME: Rosa Beltran DATE: April 25, 2018 TIME: 1:57 PM PAGER/CONTACT #: CONSULT PROG Observed: 04/25/2018 Status: COMPLETED Source: [place] 1:41 PM [facility] OTHER [facility] REPOSITORY O ID: [id number] Author: Heather Lynn Service: Infectious Disease Author [...] Pager: PROTIME Collected: 04/25/2018 Status: F Source: [place] 12:51 PM [facility] OTHER [facility] REPOSITORY TYPE CODE TESTS RESULT OUT OF RANGE REFERENCE UNITS LAB PSEC 9.7-13.0 sec High PT Sec 24.9 LAB INR 0.9-1.3 High PT INR 2.5 Result Comment: Vitamin K Antagonist (VKA) Therapeutic Range: INR 2 to 3 (Target INR of 2.5) Note: For patients treated with VKA drugs, such as warfarin, the [place] [employer]icians 2012 Guideline recommends [...] Chest 2012, 141:7S-47S Genevieve RA, et al. [facility] 2017, 70: 252-289 Performed By: #### PT #### [facility] [address] [facility] [phone] CONSULT PROG Observed: 04/25/2018 Status: COMPLETED Source: [place] 9:02 AM [facility] OTHER [facility]AMP[facility] REPOSITORY HNO ID: [id number] Author: Chintan Dempsey DPM Service: Podiatry Author [...] Podiatry ID in [place] Follow up in [facility] ?wound is so much better with just debridmeent and wound care Recommended SNF daily wound care and compression If she allows Chintan Dempsey DPM 11:55 AM April 25, 2018 SIGNATURE: Jessica Yeager DPM PATIENT NAME: Rosa Beltarn DATE: April 25, 2018 TIME: 9:03 AM PAGER: COMP METABOLIC PANEL Collected: 04/25/2018 Status: F Source: [place] 6:43 AM [facility] OTHER [facility] REPOSITORY TYPE [...] 74-99 mg/dL Glucose 88 Result Comment: The [place] Diabetes Association (ADA) provides guidance for cutoff [...] Standards of Medical Care in Diabetes 2016, [place] [employer]. Diabetes Care. 2016.39(Suppl 1). LAB [...] has been calibrated to be traceable to IDWI. An eGFR <60 mL/min/1.73m2 for >3 months is consistent with chronic kidney disease. Refer to KDOQI guidelines for clinical interpretation. In patients with unstable renal function, e.g. those with acute kidney injury, the eGFR may not accurately reflect actual GFR. Performed By: #### CMP, CBC #### [facility] [address] [place] [address] CBC Collected: 04/25/2018 Status: F Source: [place] 6:43 AM [facility] REPOSITORY TYPE CODE TESTS RESULT [...] 10.4 Performed By: #### CMP, CBC #### [facility] [address] [place] [address] PROGRESS Observed: 04/24/2018 Status: COMPLETED Source: [place] 12:42 PM [facility] OTHER [facility] REPOSITORY HNO ID: [id number] Author: Khai Edgar MD Service: Hospital Medicine Author Type: Physician Type: Progress Notes Filed: 04/24/2018 12:44 PM Note Text: SERVICE DATE: 04/24/2018 SERVICE TIME: 12:42 PM HOSPITAL MEDICINE PROGRESS NOTE NIGHT AND WEEKEND COVERAGE: Nights: Please contact pager [phone]. Reason for Admission/Observation: Chronic venous stasis ulcer with the acute superimposed cellulitis HOSPITAL DAY ZERO: 04/20/2018 Presentation: 82 Y F with PMHx of venous stasis ulcer RLE, CAD s/p PCI, AF on coumadin, Pulm HTN,?HTN, HLD, BEBA, RA, hypothyroid??who is transferred from [place] ED with chronic RLE wounds with suspected acute cellulitis with elevated wbc. She was admitted last month, seen by ID, podiatry, had debridement in pt and as out pt 2 weeks ago. She does have [facility] who noticed worsening signs of infection today so sent her to ED. Consultants: Dr. Ramesh Lynn Disposition: To be determined SUBJECTIVE Interval [...] calcaneal fracture on her x-rays done at [facility]. ? [facility] Follow cx data Local wound care B [...] 04/20/182048 -- 04/20/182099 vte [place]) 04/20/182044 vte non-pharmacologic prophylaxis - none indicated ([place]) VTE Prophylaxis: VTE prophylaxis appropriate Plan of care discussed with: Patient, Case Management, RN and Other Podiatry SIGNATURE: Khai Edgar MD PATIENT NAME: Rosa Beltran DATE: April 24, 2018 TIME: 12:42 PM PAGER/CONTACT #: CONSULT PROG Observed: 04/24/2018 Status: COMPLETED Source: [place] 11:48 AM [facility] REPOSITORY HNO ID: [id number] Author: Jessica Yeager Service: Podiatry Author Type: [...] CONSULT PROG Observed: 04/24/2018 Status: COMPLETED Source: [place] 11:29 AM [facility] OTHER [facility] REPOSITORY HNO ID: [id number] Author: Heather Lynn Service: Infectious Disease Author [...] calcaneal fracture on her x-rays done at [facility]. PLAN: Keep zosyn D/c plan on po [...] Pager: CBC Collected: 04/24/2018 Status: F Source: [place] 5:55 AM [facility] OTHER [facility]AMPUS REPOSITORY TYPE [...] 10.4 Performed By: #### CBC, CMP #### [facility] [address] [facility] [phone] COMP METABOLIC PANEL Collected: 04/24/2018 Status: F Source: [place] 5:55 AM [facility] OTHER [facility]AMP[facility] REPOSITORY TYPE [...] 74-99 mg/dL Glucose 96 Result Comment: The [place] [employer] Association (ADA) provides guidance for cutoff [...] Standards of Medical Care in Diabetes 2016, [place] [employer]. Diabetes Care. 2016.39(Suppl 1). LAB [...] GFR. Performed By: #### CBC, CMP #### [facility] [address] [facility] [phone] PROTIME Collected: 04/24/2018 Status: F Source: [place] 5:55 AM [facility] REPOSITORY TYPE CODE TESTS RESULT OUT OF RANGE REFERENCE UNITS LAB PSEC 9.7-13.0 sec High PT Sec 28.7 LAB INR 0.9-1.3 High PT INR 2.9 Result Comment: Vitamin K Antagonist (VKA) Therapeutic Range: INR 2 to 3 (Target INR of 2.5) Note: For patients treated with VKA drugs, such as warfarin, the [place] [employer]icians 2012 Guideline recommends [...] Chest 2012, 141:7S-47S Genevieve RA, et al. [facility] 2017, 70: 252-289 Performed By: #### PT #### [facility] [address] [place] [address] NURSING PROG Observed: 04/23/2018 Status: COMPLETED Source: [place] 10:03 PM [facility] REPOSITORY HNO ID: [id number] Author: Timothy Hammer) ELENA Esposito Service: Nursing Author Type: Registered Nurse Type: Nursing Progress Note Filed: 04/23/2018 10:04 PM Note Text: Nursing Progress Note Patient Name: Rosa Beltran Patient Location[facility]-0217/ZE-[id number]-8669-2 Daily Note: 2204 Dr. Lee called to clarify beta louann order with current BP/HR, LIP ordered to hold HS dose. This note was completed by: Timothy Esposito RN CONSULT PROG Observed: 04/23/2018 Status: COMPLETED Source: [place] 7:14 PM [facility] OTHER [facility]AMP[facility] REPOSITORY HNO ID: [id number] Author: Heather Lynn Service: Infectious Disease Author [...] calcaneal fracture on her x-rays done at [facility]. PLAN: Keep zosyn Follow final cx data [...] NURSING PROG Observed: 04/23/2018 Status: COMPLETED Source: [place] 3:36 PM [facility] OTHER CAMPUS REPOSITORY HNO ID: [id number] Author: Sydni (Rn) ELENA Harper Service: Nursing Author Type: Registered Nurse Type: Nursing Progress Note Filed: 04/23/2018 3:40 PM Note Text: Nursing Progress Note Patient Name: Rosa Beltran Patient Location: [facility]0217/YB-6H-3651-2 Daily Note: 1537: Call placed to Dr. Edgar in regard to pt's low blood pressure. Verbal orders to hold evening metoprolol. This note was completed by: Sydni Harper RN PROGRESS Observed: 04/23/2018 Status: COMPLETED Source: [place] 2:38 PM [facility] OTHER CAMPUS REPOSITORY HNO ID: [id number] Author: Khai Edgar MD Service: Hospital Medicine Author Type: Physician Type: Progress Notes Filed: 04/23/2018 2:39 PM Note Text: SERVICE DATE: 04/23/2018 SERVICE TIME: 2:38 PM HOSPITAL MEDICINE PROGRESS NOTE NIGHT AND WEEKEND COVERAGE: Nights: Please contact pager [phone]. Reason for Admission/Observation: Chronic venous stasis ulcer with the acute superimposed cellulitis HOSPITAL DAY ZERO: 04/20/2018 Presentation: 82 Y F with PMHx of venous stasis ulcer RLE, CAD s/p PCI, AF on coumadin, Pulm HTN,?HTN, HLD, BEBA, RA, hypothyroid??who is transferred from [place] ED with chronic RLE wounds with suspected acute cellulitis with elevated wbc. She was admitted last month, seen by ID, podiatry, had debridement in pt and as out pt 2 weeks ago. She does have [facility] who noticed worsening signs of infection today so sent her to ED. Consultants: Dr. Ramesh Lynn Disposition: To be determined SUBJECTIVE Interval [...] calcaneal fracture on her x-rays done at [facility]. ? PLAN: Keep zosyn Follow cx data [...] -- 04/20/18 2100 vte [place]ag therapy [place] 04/20/182044 vte non-pharmacologic prophylaxis - none indicated [place] VTE Prophylaxis: VTE prophylaxis appropriate Plan of care discussed with: Patient - RN not available SIGNATURE: Khai Edgar MD PATIENT NAME: Rosa Beltran DATE: April 23, 2018 TIME: 2:38 PM PAGER/CONTACT #: CONSULT PROG Observed: 04/23/2018 Status: COMPLETED Source: [place] 8:45 AM [facility] OTHER CAMPUS REPOSITORY HNO ID: [id number] Author: Ty Martinez Service: Podiatry Author Type: [...] wash with dakins, xeroform, 4x4s, abds, kerlix, NAKIT with mild compression Apply heel protectors to [...] PAGER: CBC Collected: 04/23/2018 Status: F Source: [place] 4:26 AM [facility] OTHER CAMPUS REPOSITORY TYPE [...] 10.8 Performed By: #### CBC, CMP #### [facility] [address] [facility] [phone] COMP METABOLIC PANEL Collected: 04/23/2018 Status: F Source: [place] 4:26 AM [facility] OTHER CAMPUS REPOSITORY TYPE [...] 74-99 mg/dL Glucose 91 Result Comment: The [place] Diabetes Association (ADA) provides guidance for cutoff [...] Standards of Medical Care in Diabetes 2016, [place] [employer]. Diabetes Care. 2016.39(Suppl 1). LAB [...] GFR. Performed By: #### CBC, CMP #### [facility] [address] [facility] [phone] PROTIME Collected: 04/23/2018 Status: F Source: [place] 4:26 AM [facility] OTHER CAMPUS REPOSITORY TYPE CODE TESTS RESULT OUT OF RANGE REFERENCE UNITS LAB PSEC 9.7-13.0 sec High PT Sec 26.1 LAB INR 0.9-1.3 High PT INR 2.6 Result Comment: Vitamin K Antagonist (VKA) Therapeutic Range: INR 2 to 3 (Target INR of 2.5) Note: For patients treated with VKA drugs, such as warfarin, the [place] [employer]icians 2012 Guideline recommends [...] Chest 2012, 141:7S-47S Genevieve RA, et al. [facility] 2017, 70: 252-289 Performed By: #### PT #### [facility] [address] [facility] [phone] NURSING PROG Observed: 04/22/2018 Status: COMPLETED Source: [place] 9:10 PM CLINIC OTHER CAMPUS REPOSITORY HNO ID: [id number] Author: Timothy (Rn) ELENA Esposito Service: Nursing Author Type: Registered Nurse Type: Nursing Progress Note Filed: 04/22/2018 10:50 PM Note Text: Nursing Progress Note Patient Name: Rosa Beltran Patient Location: [facility]0217/YS-6P-0820- Daily Note: 0 LIP paged r/t medication order clarification: Lopressor. 2249 LIP paged r/t need of O2 order and pain med parameter clarification. This note was completed by: Timothy Esposito RN CONSULT PROG Observed: 04/22/2018 Status: COMPLETED Source: [place] 6:54 PM [facility] REPOSITORY HNO ID: [id number] Author: Heather Lynn Service: Infectious Disease Author [...] calcaneal fracture on her x-rays done at [facility]. PLAN: Keep zosyn Follow cx data Will [...] NURSING PROG Observed: 04/22/2018 Status: COMPLETED Source: [place] 2:35 PM [facility] OTHER [place] REPOSITORY HNO ID: [id number] Author: Rocio Lynne (Rn) ELENA Contreras Service: (none) Author Type: Registered Nurse Type: Nursing Progress Note Filed: 04/22/2018 2:37 PM Note Text: Nursing Progress Note Patient Name: Rosa Beltran Patient Location: [place] [id number] Daily Note: 1315: Podiatry resident, Ty Martinez, at bedside to perform dressing change. Patient encouraged to wear boots to offload heels but refuses despite continuing education. Patient agreeable to pillow, but will not allow heels to be floated. This note was completed by: Rocio Contreras RN PROGRESS Observed: 04/22/2018 Status: COMPLETED Source: [place] 1:46 PM CLINIC OTHER CAMPUS REPOSITORY HNO ID: [id number] Author: Marvin Blanton Service: General Internal Medicine Author Type: Physician Type: Progress Notes Filed: 04/22/2018 1:48 PM Note Text: DEPARTMENT OF HOSPITAL MEDICINE PROGRESS NOTE Patient Name: Rosa Beltran SERVICE DATE AND TIME: April 22, 2018 1:47 PM Hospital Medicine/Primary Attending: Marvin Blanton MD NIGHT AND WEEKEND COVERAGE: Days: [phone], please page me or text for patient issues my pager cell # [phone]. Evening and Nights: 4720-8760, please page [phone] ASSESSMENT AND PLAN Venous stasis ulcer of [...] CONSULT PROG Observed: 04/22/2018 Status: COMPLETED Source: [place] 1:17 PM [facility]INIC OTHER CAMPUS REPOSITORY HNO ID: [id number] Author: Chintan Dempsey DPM Service: Podiatry Author [...] PAGER: CBC Collected: 04/22/2018 Status: F Source: [place] 5:27 AM CLINIC OTHER CAMPUS REPOSITORY TYPE [...] 11.0 Performed By: #### CBC, CMP #### [facility] [address] [facility] [phone] COMP METABOLIC PANEL Collected: 04/22/2018 Status: F Source: [place] 5:27 AM CLINIC OTHER CAMPUS REPOSITORY TYPE [...] 74-99 mg/dL Glucose 89 Result Comment: The [place] Diabetes Association (ADA) provides guidance for cutoff [...] Standards of Medical Care in Diabetes 2016, [place] [employer]. Diabetes Care. 2016.39(Suppl 1). LAB [...] GFR. Performed By: #### CBC, CMP #### [facility] [address] [facility] [phone] PROTIME Collected: 04/22/2018 Status: F Source: [place] 5:27 AM CLINIC OTHER CAMPUS REPOSITORY TYPE CODE TESTS RESULT OUT OF RANGE REFERENCE UNITS LAB PSEC 9.7-13.0 sec High PT Sec 22.0 LAB INR 0.9-1.3 High PT INR 2.2 Result Comment: Vitamin K Antagonist (VKA) Therapeutic Range: INR 2 to 3 (Target INR of 2.5) Note: For patients treated with VKA drugs, such as warfarin, the [place] [employer]icians 2012 Guideline recommends [...] Chest 2012, 141:7S-47S Genevieve RA, et al. [facility] 2017, 70: 252-289 Performed By: #### PT #### [facility] [address] [place] [address] MRI LOWER LEG WO/W Observed: 04/21/2018 Status: F Source: [place] IVCON RT 4:50 PM CLINIC OTHER CAMPUS REPOSITORY * * *Final Report* * * DATE OF EXAM: Apr 21 2018 4:50PM [facility] 0227 - MRI LOWER LEG WO/W IVCON [...] a better study to evaluate for osteomyelitis. Credit Professional: PSCB Transcribe Date/Time: Apr 21 2018 5:12P Dictated by : BENNIE VELASQUEZ MD This examination was interpreted and the report reviewed and electronically signed by: BENNIE VELASQUEZ MD on Apr 21 2018 5:16PM EST [id number] NURSING PROG Observed: 04/21/2018 Status: COMPLETED Source: [place] 2:43 PM [facility] OTHER CAMPUS REPOSITORY HNO ID: [id number] Author: Dorene ParksRn) ELENA Billy Service: Nursing Author Type: Registered Nurse Type: Nursing Progress Note Filed: 04/21/2018 5:25 PM Note Text: Nursing Progress Note Patient Name: Rosa Beltran Patient Location: MS-2S-0217/CG-3A-6075-2 Daily Note :1000 podiatry at bedside wound culture obtained and dressings changed bilateral legs at this time. 1430 to mri via bed with transport 1705 returns from mri via bed with o2., telemetry reapplied This note was completed by: Dorene Billy RN XR TIBIA FIBULA 2V Observed: 04/21/2018 Status: F Source: [place] AP/LAT RT 1:50 PM CLINIC OTHER CAMPUS [...] as discussed similar to the previous study Credit Professional: DWIGHT Transcribe Date/Time: Apr 21 2018 4:30P Dictated by : HAO YORK DO This examination was interpreted and the report reviewed and electronically signed by: HAO YORK DO on Apr 21 2018 4:32PM EST [id number] PROGRESS Observed: 04/21/2018 Status: COMPLETED Source: [place] 1:42 PM [facility] REPOSITORY HNO ID: [id number] Author: Alisa Beltre (Pharmacist) Service: Pharmacy Author [...] OF CARE Observed: 04/21/2018 Status: COMPLETED Source: [place] 1:34 PM [facility] REPOSITORY HNO ID: [id number] Author: Heather Lynn Service: Infectious Disease Author Type: Physician Type: Plan of Care Filed: 04/21/2018 1:34 PM Note Text: Consult Dictated. Please call with questions. Will follow with you. Thank you. Heather Lynn MD Pager: [phone] Date: 04/21/2018 Time: 1:34 PM PROGRESS Observed: 04/21/2018 Status: COMPLETED Source: [place] 1:16 PM [facility] REPOSITORY HNO ID: [id number] Author: Marvin Blanton Service: General Internal Medicine Author Type: Physician Type: Progress Notes Filed: 04/21/2018 1:18 PM Note Text: DEPARTMENT OF HOSPITAL MEDICINE PROGRESS NOTE Patient Name: Rosa Beltran SERVICE DATE AND TIME: April 21, 2018 1:16 PM Hospital Medicine/Primary Attending: Marvin Blanton MD NIGHT AND WEEKEND COVERAGE: Days: [phone], please page me or text for patient issues my pager cell # [phone]. Evening and Nights: 0616-2811, please page [phone] ASSESSMENT AND PLAN Active Hospital Problems Diagnosis [...] ALLIED HEALTH Observed: 04/21/2018 Status: COMPLETED Source: [place] 11:28 AM [facility] OTHER [place] REPOSITORY HNO ID: [id number] Author: Svetlana Gonzalez RN Service: Ostomy Author [...] MGT INIT Observed: 04/21/2018 Status: COMPLETED Source: [facility] 11:04 AM [facility] OTHER [place] REPOSITORY HNO ID: [id number] Author: Linda Herring ([place]) Service: Care Management Author Type: Canal Equipment Mechanic Type: Care Mgt Initial Assessment Filed: 04/21/2018 [...] Order;Other: See Comment;Wound Care (medical clearance) MEDICAL: Patient/Wireless Team Member Stated Goals: To have reduction in symptoms To return home to life as it was To be cured/healed Health Insurance: MEDICARE A AND B [place] Health Issues Impacting Discharge Plan: Chronic wounds Last Admission Date: Previous admit date: 03/17/2018 Is this Within the Past 30 days? No Advance Directive: Current Advance Directive: Health Care Power of Street Sprinkler (pt states her son recently , she states her dtr in law is now her POA. Pt states paperwork is at home and declines to complete or update POA forms at this time) In Chart: No Electrotyper Helper Assisted with AD Completion: No Health Literacy: [...] or Home Care? Home Health Care Agency: [facility]; ; Active. Equipment Prior to Admission: Oxygen [...] 0 I feel financially burdened by my lsw-ir-detjns expenses for my prescription medication: Disagree completely [...] HHC with [facility] POTENTIAL TRANSITION PLANS Home Alf OT/PT Met with pt bedside, introduced self [...] would like to resume services at d/c. [facility] referral sent. Pt states her dtr in law will transport her at d/c. Anticipate complex d/c needs, case management to remain available for d/c planning and assist as needed. SIGNATURE: MERY Medina PATIENT NAME: Rosa Beltran DATE: April 21, 2018 TIME: 11:04 AM PAGER/CONTACT #: [phone] CONSULT Observed: 04/21/2018 Status: COMPLETED Source: [place] 10:41 AM CLINIC OTHER CAMPUS REPOSITORY HNO ID: [id number] Author: Jessica Yeager Service: Podiatry Author Type: Resident Type: Consults Filed: 04/21/2018 11:06 AM Note Text: CONSULT: POD SURG SERVICE SERVICE DATE: 04/21/2018 SERVICE TIME: 1030 REASON FOR CONSULT: Right LE ulcerations PRIMARY CARE PHYSICIAN: Mani Newman MD Subjective Ms. Beltran is a 82 year old female who presents for R LE wounds with increasing redness, swelling, pain, drainage. Patient was sent from [facility] due to previous care at [place]. Patient had OR debridement on last admission and required continued wound care. Patients states [facility] has been changing her dressings daily and pt was supposed to continue follow up with Dr. Dempsey in [place] wound care center. Pt was started PO abx for two weeks, off for one week, and restarted two days ago. Pt admits to nausea, denies V/C/F/SOB. PAST MEDICAL HISTORY Diagnosis Date - Acquired hypothyroidism - Acute respiratory failure with hypoxia (HCC) 09/30/2017 - Atrial fibrillation ([facility]) - CAD (coronary artery disease) Dr. Gutierrez [place] Hts, Promus element KIMMY LAD 11/20/2012, Stress [...] 10/08/2016 - COPD (chronic obstructive pulmonary disease) ([facility]) - Depressive disorder 12/29/2016 - Disruption of surgical wound 09/2015 Right tibia - Dorsalgia 12/29/2016 - Dyslipidemia - Gastric bypass status for obesity 12/29/2016 - Gastroesophageal reflux disease without esophagitis 10/08/2016 - HTN (hypertension) - Muscular weakness 12/29/2016 - Primary osteoarthritis involving multiple joints 12/29/2016 - Pure hypercholesterolemia - Rheumatoid arthritis ([facility]) 2007 - Sleep apnea - Stented coronary artery 12/29/2016 PAST SURGICAL HISTORY Procedure Laterality Date - CC CORONARY STENT 11/20/2012 KIMMY LAD - CC CORONARY STENT 12/20/2014 KIMMY, Cfx - SECTION HX - COLONOSCOPY 06/10/2017 [facility], Nonspecific cecal ulcer - GASTRIC BYPASS HX 1986 - HERNIA REPAIR HX 1987; 1989 - PAST SURGICAL HISTORY OF Right 09/2015 right tibia fracture ORIF - PAST SURGICAL HISTORY OF Right 01/20/2016 Removal of hardware, right tibia - TOTAL KNEE REPLACEMENT Right 2003 [facility] Gen. - TOTAL KNEE REPLACEMENT Left 2004 [facility] Gen. No family history on [...] PAGER: WOUND Observed: 04/21/2018 Status: F Source: [place] CULTURE/STAIN 10:30 AM [facility] REPOSITORY Sp. Request/Comment: - Eswab Smear Result [...] <=0.5 F Performed By: #### WCUL #### [facility] [address] [place] [address] PROGRESS Observed: 04/21/2018 Status: COMPLETED Source: [place] 9:25 AM [facility] REPOSITORY HNO ID: [id number] Author: Taina Pride (Pharmacist) Service: Pharmacy Author [...] any questions, please contact inpatient pharmacy at [phone]. Age: [age] year old Allergies: ALLERGIES No [...] PHARMACIST CBC Collected: 04/21/2018 Status: F Source: [place] 4:24 AM CLINIC OTHER CAMPUS REPOSITORY TYPE [...] 10.9 Performed By: #### CBC, CMP #### [facility] [address] [place] [address] COMP METABOLIC PANEL Collected: 04/21/2018 Status: F Source: [place] 4:24 AM CLINIC OTHER CAMPUS REPOSITORY TYPE [...] 74-99 mg/dL Glucose 87 Result Comment: The [place] Diabetes Association (ADA) provides guidance for cutoff [...] Standards of Medical Care in Diabetes 2016, [place] [employer] Association. Diabetes Care. 2016.39(Suppl 1). LAB [...] GFR. Performed By: #### CBC, CMP #### [facility] [address] [facility] [phone] PROTIME Collected: 04/21/2018 Status: F Source: [place] 4:24 AM CLINIC OTHER CAMPUS REPOSITORY TYPE CODE TESTS RESULT OUT OF RANGE REFERENCE UNITS LAB PSEC 9.7-13.0 sec High PT Sec 19.9 LAB INR 0.9-1.3 High PT INR 2.0 Result Comment: Vitamin K Antagonist (VKA) Therapeutic Range: INR 2 to 3 (Target INR of 2.5) Note: For patients treated with VKA drugs, such as warfarin, the [place] [employer] Chest [employer]icians 2012 Guideline recommends [...] JAC 2017, 70: 252-289 Performed By: #### PT #### [facility] [address] [facility] [phone] CONSULT Observed: 04/21/2018 Status: COMPLETED Source: [place] 12:00 AM CLINIC OTHER CAMPUS REPOSITORY HNO ID: [id number] Author: Heather Lynn Service: Infectious Disease Author Type: Physician Type: Consults Filed: 04/22/2018 3:37 PM Note Text: [facility]- Consultation ROSA BELTRAN : 1935 AGE: 82 SEX: F ACCTNUM: [id number] [facility] [place] LOCATION: [facility] ATTENDING PHYSICIAN: MARVIN BLANTON DATE OF CONSULTATION: [...] concerns of ongoing infection. She went to [facility] in [place], [place], where she had a CBC checked. White count was elevated at 21,000 with a left shift. Her creatinine was normal. X-rays of her right leg were done, which did not show any acute changes. [facility] for [facility] management. She was seen by [...] calcaneal fracture on her x-rays done at [facility]. Most of her wounds are though on the right lower extremity. RECOMMENDATIONS: 1. Treat with Zosyn for now. 2. Follow cultures that were sent by Podiatry. 3. Check MRI of her right lower extremity to look for underlying osteomyelitis. 4. Follow her closely with you. 5. We will discuss with Podiatry. Heather Lynn M.D. Infectious Disease [id number] /[id number] PROGRESS Observed: 04/20/2018 Status: COMPLETED Source: [place] 10:54 PM [facility] OTHER CAMPUS REPOSITORY [facility] ID: [id number] Author: Kayla Payton (Pharmacist) Service: Pharmacy Author [...] next vancomycin level will be ordered for 6/25/18 unless clinically indicated sooner. (Pharmacy will order) We will follow patient renal function, vancomycin levels and doses with you during the course of therapy. Additional recommendations will appear in follow up notes. If you have any questions, please contact pharmacy at [phone]. Age: [age] year old Allergies: ALLERGIES No [...] BCPS LACTATE Collected: 04/20/2018 Status: F Source: [place] 9:17 PM CLINIC OTHER CAMPUS REPOSITORY TYPE CODE TESTS RESULT OUT OF REFERENCE UNITS RANGE LAB LACT 0.5-2.2 mmol/L Lactate 1.5 Performed By: #### LACT #### [facility] [address] [place] [address] PROTIME Collected: 04/20/2018 Status: F Source: [place] 9:12 PM CLINIC OTHER CAMPUS REPOSITORY TYPE CODE TESTS RESULT OUT OF RANGE REFERENCE UNITS LAB PSEC 9.7-13.0 sec High PT Sec 21.9 LAB INR 0.9-1.3 High PT INR 2.2 Result Comment: Vitamin K Antagonist (VKA) Therapeutic Range: INR 2 to 3 (Target INR of 2.5) Note: For patients treated with VKA drugs, such as warfarin, the [place] [employer] Physicians 2012 Guideline recommends [...] Chest 2012, 141:7S-47S Genevieve RA, et al. [facility] 2017, 70: 252-289 Performed By: #### PT #### [facility] [address] [facility] [phone] SED RATE WESTERGREN Collected: 04/20/2018 Status: F Source: [place] 9:12 PM [facility] OTHER CAMPUS REPOSITORY TYPE CODE TESTS RESULT OUT OF REFERENCE UNITS RANGE LAB WSR 0-20 mm/hr Sed Rate High Westergren 56 Performed By: #### WSR, HSCRP #### [facility] [address] [place] [address] ULTRA-SENSITIVE CRP Collected: 04/20/2018 Status: F Source: [place] 9:12 PM [facility] OTHER CAMPUS REPOSITORY TYPE CODE TESTS [...] for Disease Control and Prevention and the [place] [employer] Association. Circulation 2003;107:499-511. Performed By: #### WSR, HSCRP #### [facility] [address] [place], [place] [address] HISTORY PHYSICAL Observed: 04/20/2018 Status: COMPLETED Source: [place] 7:51 PM CLINIC OTHER CAMPUS REPOSITORY HNO ID: [id number] Author: Justin Dangelo ([place]) Service: General Internal Medicine Author Type: Physician Director Trade Type: HANDP Filed: 04/20/2018 8:55 PM Note Text: Attestation signed by Xavier Mercado at 04/20/2018 9:58 PM [facility] STAFF PHYSICIAN NOTE OF PERSONAL INVOLVEMENT IN CARE I have reviewed the history and physical examination obtained and documented by the physician daycare assistant and I personally participated in the [place] components. I have discussed the case and management of the patient's care. 82 Y F with PMHx of venous stasis ulcer RLE, CAD s/p PCI, AF on coumadin, Pulm HTN, HTN, HLD, BEBA, RA, hypothyroid? who is transferred from [place] ED with chronic RLE wounds with suspected acute cellulitis with elevated wbc. She was admitted last month, seen by ID, podiatry, had debridement in pt and as out pt 2 weeks ago. She does have [facility] who noticed worsening signs of infection today [...] Physician: Mani Newman MD NIGHT COVERAGE Page [phone] for any questions between 5.30p-7.30a ASSESSMENT AND [...] HLD, BEBA, RA, hypothyroid who presents from [place] ED with chronic RLE wounds with acute [...] 10/08/2016 - COPD (chronic obstructive pulmonary disease) ([facility]) - Depressive disorder 12/29/2016 - Disruption of surgical wound 09/2015 Right tibia - Dorsalgia 12/29/2016 - Dyslipidemia - Gastric bypass status for obesity 12/29/2016 - Gastroesophageal reflux disease without esophagitis 10/08/2016 - HTN (hypertension) - Muscular weakness 12/29/2016 - Primary osteoarthritis involving multiple joints 12/29/2016 - Pure hypercholesterolemia - Rheumatoid arthritis ([facility]) 2007 - Sleep apnea - Stented coronary artery 12/29/2016 PAST SURGICAL HISTORY: PAST SURGICAL HISTORY Procedure Laterality Date - CC CORONARY STENT 11/20/2012 KIMMY LAD - CC CORONARY STENT 12/20/2014 KIMMY, Cfx - SECTION H[facility] - [facility] Nonspecific cecal ulcer - GASTRIC BYPASS HX 1986 - HERNIA REPAIR HX 1987; 1989 - PAST SURGICAL HISTORY OF Right 09/2015 right tibia fracture ORIF - PAST SURGICAL HISTORY OF Right 01/20/2016 Removal of hardware, right tibia - TOTAL KNEE REPLACEMENT Right 2003 [facility] Gen. - TOTAL KNEE REPLACEMENT Left 2004 [facility] Gen. FAMILY HISTORY: No family [...] MINIMUM 3 Observed: 04/20/2018 Status: C Source: [facility] RIGHT 4:51 PM [facility] REPOSITORY ADDENDUM Oblique [...] MINIMUM 3 Observed: 04/20/2018 Status: F Source: [facility] VIEWS RIGHT 4:51 PM [facility] REPOSITORY ORIGINAL [...] 1 VIEW Observed: 04/20/2018 Status: F Source: [facility] 4:50 PM [facility] REPOSITORY ORIGINAL XR CHEST [...] BRAIN W/O Observed: 04/20/2018 Status: F Source: [facility] CONTRAST 4:50 PM [facility] REPOSITORY ORIGINAL CT HEAD OR BRAIN W/O [...] PM CBC Collected: 04/20/2018 Status: C Source: [facility] 3:57 PM [facility] REPOSITORY TYPE CODE TESTS RESULT OUT OF [...] PRO, GFR, APTT, BMP, DIFF, MORPH #### [address] [address] PRO Collected: 04/20/2018 Status: F Source: [facility] 3:57 PM [facility] REPOSITORY TYPE CODE TESTS RESULT OUT OF [...] PRO, GFR, APTT, BMP, DIFF, MORPH #### [address] [place], [place] [address] .GFR Collected: 04/20/2018 Status: F Source: [place] 3:57 PM [facility] REPOSITORY TYPE CODE TESTS RESULT OUT OF REFERENCE UNITS RANGE LAB GFRAA(LOINC ml/min/1.73 ) sqm GFR 71 [place] Result Comment: GFR Population mean for , [...] PRO, GFR, APTT, BMP, DIFF, MORPH #### [address] [place], [place] [address] APTT Collected: 04/20/2018 Status: F Source: [facility] 3:57 [facility] REPOSITORY TYPE CODE TESTS RESULT OUT OF [...] PRO, GFR, APTT, BMP, DIFF, MORPH #### [address] [address] BMP Collected: 04/20/2018 Status: F Source: [facility] 3:57 PM [facility] REPOSITORY TYPE CODE TESTS RESULT OUT OF [...] PRO, GFR, APTT, BMP, DIFF, MORPH #### [address] [address] .MANUAL DIFF Collected: 04/20/2018 Status: F Source: [facility] 3:57 PM [facility] REPOSITORY TYPE CODE TESTS RESULT OUT OF [...] PRO, GFR, APTT, BMP, DIFF, MORPH #### [address] [address] .MORPH Collected: 04/20/2018 Status: F Source: [facility] 3:57 PM [facility] REPOSITORY TYPE CODE TESTS RESULT OUT OF REFERENCE UNITS RANGE LAB PLTE(LOINC) Platelet Normal Estimate Performed By: #### CBC, PRO, GFR, APTT, BMP, DIFF, MORPH #### [address] [address] UA Collected: 04/20/2018 Status: F Source: [facility] 3:57 PM [facility] REPOSITORY TYPE CODE TESTS RESULT OUT OF [...] Performed By: #### UA, UAMICAO #### [facility] [address] [place], [place] [address] .URINALYSIS MICROSCOPIC Collected: 04/20/2018 Status: F Source: JERMAINE (OBDULIO) 3:57 PM [facility] REPOSITORY TYPE CODE TESTS RESULT OUT OF REFERENCE UNITS RANGE LAB WBCUA(LOIN None Seen /hpf C) UA WBC None Seen LAB RBCUA(LOIN None Seen /hpf C) UA RBC None Seen LAB EPIUA(LOIN None Seen /hpf C) UA Squam Epithelial None Seen Performed By: #### UA, UAMICAO #### [facility] [address] [place], [place] [address] PROGRESS Observed: 04/14/2018 Status: COMPLETED Source: [place] 5:37 PM 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 Her pulmonary hypertension had improved slightly. There is only moderate tricuspid insufficiency. Electronically Signed: Corey Mckeon MD April 14, 2018 5:37 PM CC: Mani Newman MD PROTIME Collected: 04/14/2018 Status: F Source: [place] 12:15 PM [facility] REPOSITORY TYPE CODE TESTS RESULT OUT OF RANGE REFERENCE UNITS LAB PSEC 9.7-13.0 sec High PT Sec 19.6 LAB INR 0.9-1.3 High PT INR 2.0 Result Comment: Vitamin K Antagonist (VKA) Therapeutic Range: INR 2 to 3 (Target INR of 2.5) Note: For patients treated with VKA drugs, such as warfarin, the [place] [employer] Physicians 2012 Guideline recommends [...] Chest 2012, 141:7S-47S Genevieve RA et al. [facility] 2017, 70: 252-289 Performed By: #### PT #### [facility] [address] [address] BASIC METABOLIC PANL Collected: 04/14/2018 Status: F Source: [place] 12:15 PM [facility] REPOSITORY TYPE CODE TESTS RESULT OUT OF REFERENCE UNITS RANGE LAB GLU 74-99 mg/dL Glucose 97 Result Comment: The [place] Diabetes Association (ADA) provides guidance for cutoff [...] Standards of Medical Care in Diabetes 2016, [place] [employer]. Diabetes Care. 2016.39(Suppl 1). LAB [...] Performed By: #### BMP #### [facility] [address] [place], [place] [address] CNOV Observed: 04/14/2018 Status: COMPLETED Source: [place] 11:30 AM 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 Her pulmonary hypertension had improved slightly. There is only moderate tricuspid insufficiency. Electronically Signed: Corey Mckeon MD April 14, 2018 5:37 PM CC: Mani Newman MD Referring Provider: COREY MCKEON [[id number]] Allergies As of Date: 04/14/2018 (No Known [...] [I89.0] Order(s):BASIC METABOLIC PNL [SQBMP] Order #: [id number] FUTURE spironolactone (ALDACTONE) 25 mg tabletTake 2 [...] Leg ulcer, right, with fat layer exposed ([facility]) *INVALID FOR* Venous stasis ulcer of right [...] 04/14/18 PROGRESS Observed: 04/11/2018 Status: COMPLETED Source: [place] 2:19 PM CLINIC OTHER CAMPUS REPOSITORY O ID: [id number] Author: Chintan Dempsey DPM Service: (none) Author [...] 5*3 at that time post Id and mary janenet is at [facility] here for wound check having wounds taken care of CURRENT MEDICATIONS: Warfarin Sodium Oral Tablet 1 MG (01/02/2018) Vitamin D (Ergocalciferol) Oral Capsule 37260 UNIT (12/24/2017) Spironolactone Oral Tablet 25 MG [...] possible mist therapy next step instructions for C givedn new ordres follow up can return [...] I89.0 CNOV Observed: 04/11/2018 Status: COMPLETED Source: [place] 11:00 AM CLINIC OTHER CAMPUS REPOSITORY Office Visit (PLWDMR) ROSA BELTRAN ([id number]) 1935 F Date Time Provider Department 04/11/18 [...] following changes to the Wound Center at [phone] or go to the Emergency Department: ? [...] time post Id and ravindra is at [facility] here for wound check having wounds taken care of CURRENT MEDICATIONS: Warfarin Sodium Oral Tablet 1 MG (01/02/2018) Vitamin D (Ergocalciferol) Oral Capsule 76893 UNIT (12/24/2017) Spironolactone Oral Tablet 25 MG [...] possible mist therapy next step instructions for C givedn new ordres follow up can return [...] extremity 457.1 I89.0 Referring Provider: LUIS SIMONS, ([facility]) [[id number]] Allergies As of Date: 04/11/2018 (No Known [...] following changes to the Wound Center at [phone] or go to the Emergency Department: ? Fever or chills ? Increased drainage ? Green or yellow drainage ? Foul odor ? Increased pain ? Hardness around the wound ? Redness, warmth or swelling of the surrounding tissue ? Color change to the wound PLAN: Follow up with Marlen in 2 weeks Use Lymphedema pumps DAILY YAHIR ArnoldM/csm Visit Notes: >> Peter Martinez) TORY Jason [...] 04/11/18 ANA Observed: 04/06/2018 Status: COMPLETED Source: [place] 12:00 AM [facility] REPOSITORY Patient Outreach (INTMWS) ROSA BELTRAN ([id number]) 1935 F Date Time Provider Department 04/06/18 MARITZA RUSSELL During your visit today, we recorded the following information about you: Allergies As of Date: 04/06/2018 (No Known Allergies) Date Reviewed: 03/24/2018 Reviewed by: Guillermina (Rn) ELENA Mora - Fully Assessed Reason for Visit: Client Application Support Engineer Chronic Care [[id number]] Prescriptions as of 04/06/2018 Sig: OMEPRAZOLE 20 [...] OF CARE Observed: 03/24/2018 Status: COMPLETED Source: [place] 2:13 PM CLINIC OTHER CAMPUS REPOSITORY O ID: [id number] Author: Yamilka Rosa (In Flight Crew Member) Service: (none) Author Type: (none) Type: Plan of Care Filed: 03/24/2018 2:14 PM Note Text: AUTOMOTIVE CUSTOMER EXPERIENCE ADVISOR BEDSIDE DELIVERY SURVEY 1. Patient to use [facility] Bedside Delivery - YES 2. If fax, patient would like us to fax prescriptions to Pharmacy of choice a. Pharmacy: b. Location: c. Phone: 3. Insurance card on file - YES 4. Credit card for payment - YES PHARMACY BEDSIDE DELIVERY SERVICE Patient Name: Rosa Beltran The marked outpatient medications were Filled at: [place] and delivered to the patient's bedside to [...] or your Primary Care Provider. Yamilka Rosa ([place]) PAGER: [phone] March 24, 2018 2:13 PM CASE MANAGEM Observed: 03/24/2018 Status: COMPLETED Source: [place] 2:00 PM CLINIC OTHER CAMPUS REPOSITORY HNO ID: [id number] Author: Maritza ParksRn) ELENA Cadet Service: Case [...] and plan for meeting these needs: Home [facility] and family assist as needed. Does the patient have an acute stroke diagnosis, or has the patient had a stroke during this admission? No HANDOFF COMMUNICATION: Primary Care Physician: Mani Newman MD Summary of Care to Dr. Newman and Monroeneal Hu S TRANSPORTATION ARRANGEMENTS: Car via family ADDITIONAL CONTACT RESOURCES: N/A Discharge Information Row Name [place] in [place] on 03/22/2018 ED to Hosp-Admission (Current) from 03/17/2018 in [facility] Agency ? [facility] Phone# ? [phone] Start of Care ? 03/24/18 Needs Prior to Discharge: None;Ready for Discharge IM letter given to Rosa Beltran on 03/24/2018. Discharge order written for today to home with home health care. Patient continues to decline SNF as well as home PT and OT. Patient indicates to ELENA DIAZ that she is only agreeable to home care for nursing for [facility] care. [facility]. Patient is agreeable to discharge today and indicates that her [id number] will be transporting home. Patient declines PCP follow-up indicating that she will follow-up with Dr. Dempsey and the wound center. SIGNATURE: Maritza Cadet RN PATIENT NAME: Rosa Beltran DATE: March 24, 2018 TIME: 2:00 PM PAGER/CONTACT #: [phone] CONSULT PROG Observed: 03/24/2018 Status: COMPLETED Source: [place] 1:09 PM CLINIC OTHER CAMPUS REPOSITORY HNO ID: [id number] Author: Checo Kay MD Service: Infectious Disease [...] reviewed Imaging data: reviewed Checo Kay MD [phone] 03/23/2018 9:06 AM ALLIED HEALTH Observed: 03/24/2018 Status: COMPLETED Source: [place] 1:07 PM CLINIC OTHER CAMPUS REPOSITORY HNO ID: [id number] Author: Svetlana (Rn) ELENA Gonzalez Service: Ostomy [...] (Active) Stage Injury 3 03/21/2018 10:23 PM Jig Box Operator Related Pressure Injury No 03/21/2018 10:23 PM Dressing Status Initial Post-Op Dressing Intact 03/23/2018 8:45 AM Frequency of Dressing Change Daily 03/23/2018 8:45 AM Dressing Change Due 03/22/18 03/23/2018 8:45 AM Dressing/Treatment Type ABD;Kerlex Roll;Gauze/ Xeroform 03/21/2018 10:23 PM Drainage Description Serosanguineous 03/20/2018 5:00 PM Drainage Amount Large 03/20/2018 5:00 PM Odor No 03/19/2018 9:50 PM Wound Surface Color Red;[place];Yellow 03/20/2018 5:00 PM Surrounding Skin Erythematous 03/20/2018 [...] No 03/19/2018 9:50 PM Wound Surface Color Red;[place] 03/19/2018 9:50 PM Surrounding Skin Erythematous 03/19/2018 9:50 PM Number of days: Pressure Injury 03/17/18 1711 Heel - Left (Active) Stage Injury 1 03/21/2018 10:23 PM Jig Box Operator Related Pressure Injury No 03/23/2018 8:45 AM [...] necessary. CNDS Observed: 03/24/2018 Status: COMPLETED Source: [place] 12:59 PM CLINIC OTHER CAMPUS REPOSITORY HNO ID: [id number] Author: Liza Barry Service: General Internal Medicine [...] FUTURE APPOINTMENTS: Follow Up with PCP: Mani Newamn MD Discharge Information Row Name [place] 03/22/2018 ED to Hosp-Admission (Current) from 03/17/2018 in [facility] Agency ? [facility] Phone# ? [phone] Start of Care ? 03/24/18 TIME OF CARE (Use first blank if not applicable): TIME OF CARE: Discharge Management: I personally spent greater than 30 minutes involved in the discharge management of this patient. SIGNATURE: Liza Barry MD PATIENT NAME: Rosa Beltran DATE: March 24, 2018 TIME: 12:59 PM PAGER/CONTACT #: [phone] CBC AND DIFFERENTIAL Collected: 03/24/2018 Status: F Source: [place] 4:56 AM [facility] OTHER CAMPUS REPOSITORY TYPE CODE TESTS [...] k/uL Abs Lymph 1.39 LAB AMONO % Chaves% 10.1 LAB AAMONO <0.87 k/uL Abs Chaves 0.48 LAB AEOS % Eosin% 6.6 LAB AAEOS <0.46 k/uL Abs Eosin 0.31 LAB ABASO % Baso% 0.6 LAB AABASO <0.11 k/uL Abs Baso 0.03 Performed By: #### CBCDIF, PT, BMP #### [facility] [address] [place] [address] PROTIME Collected: 03/24/2018 Status: F Source: [place] 4:56 AM [facility] OTHER CAMPUS REPOSITORY TYPE CODE TESTS RESULT OUT OF RANGE REFERENCE UNITS LAB PSEC 9.7-13.0 sec High PT Sec 17.0 LAB INR 0.9-1.3 High PT INR 1.7 Result Comment: Vitamin K Antagonist (VKA) Therapeutic Range: INR 2 to 3 (Target INR of 2.5) Note: For patients treated with VKA drugs, such as warfarin, the [place] [employer]icians 2012 Guideline recommends [...] Chest 2012, 141:7S-47S Genevieve RA et al. [facility] 2017, 70: 252-289 Performed By: #### CBCDIF, PT, BMP #### [facility] [address] [facility] [phone] BASIC METABOLIC PANL Collected: 03/24/2018 Status: F Source: [place] 4:56 AM CLINIC OTHER CAMPUS REPOSITORY TYPE CODE TESTS RESULT OUT OF REFERENCE UNITS RANGE LAB GLU 74-99 mg/dL High Glucose 121 Result Comment: The [place] Diabetes Association (ADA) provides guidance for cutoff [...] Standards of Medical Care in Diabetes 2016, [place] [employer]. Diabetes Care. 2016.39(Suppl 1). LAB [...] Performed By: #### CBCDIF, PT, BMP #### [facility] [address] [facility] [phone] PLAN OF CARE Observed: 03/23/2018 Status: COMPLETED Source: [place] 2:40 PM CLINIC OTHER CAMPUS REPOSITORY O ID: [id number] Author: Maritza (Rn) ELENA Cadet Service: Case [...] Leg Ulcer, Right, With Fat Layer Exposed ([facility]) Attendees Present at Rounds: Electrotyper Helper: Maritza Cadet Provider: Dr. Barry Needs Discussed on Rounds: Discharge Needs Mobility Plan of Care Anticipated Discharge Disposition: Home with Home Health Care Last Vitals: BP 124/66 Pulse 58 Temp (Src) 98.2 (Oral) Resp 18 Ht 5' 4 (1.63m) Wt 198 lb 13.7 oz (90.2kg) SpO2 97% BMI 34.12 kg/(m2). EMR reviewed. Anticipate discharge tomorrow with [facility] for HHC. Patient is refusing SNF. [...] March 23, 2018 TIME: 2:40 PM CSN: [id number] PROGRESS Observed: 03/23/2018 Status: COMPLETED Source: [place] 2:35 PM CLINIC OTHER CAMPUS REPOSITORY O ID: [id number] Author: Liza Barry Service: General Internal Medicine Author Type: Physician Type: Progress Notes Filed: 03/23/2018 2:36 PM Note Text: DEPARTMENT OF HOSPITAL MEDICINE PROGRESS NOTE SERVICE DATE: 03/23/2018 SERVICE TIME: 2:35 PM Hospital Medicine/Primary Attending: Liza Barry MD NIGHT AND WEEKEND COVERAGE: Nights: Please contact pager [phone]. Subjective INTERVAL HPI: pt seen and examined, [...] Prophylaxis: VTE prophylaxis appropriate Disposition: Home with [facility] Plan of care discussed with: Patient SIGNATURE: Liza Barry MD PATIENT NAME: Rosa Beltran DATE: March 23, 2018 TIME: 2:36 PM PAGER/CONTACT #: [phone] etx [phone] CONSULT PROG Observed: 03/23/2018 Status: COMPLETED Source: [place] 9:05 AM CLINIC OTHER CAMPUS REPOSITORY HNO ID: [id number] Author: Checo Kay MD Service: Infectious Disease [...] reviewed Imaging data: reviewed Checo Kay MD [phone] 03/23/2018 9:06 AM PROTIME Collected: 03/23/2018 Status: F Source: [place] 4:23 AM CLINIC OTHER CAMPUS REPOSITORY TYPE CODE TESTS RESULT OUT OF RANGE REFERENCE UNITS LAB PSEC 9.7-13.0 sec High PT Sec 16.2 LAB INR 0.9-1.3 High PT INR 1.6 Result Comment: Vitamin K Antagonist (VKA) Therapeutic Range: INR 2 to 3 (Target INR of 2.5) Note: For patients treated with VKA drugs, such as warfarin, the [place] [employer]icians 2012 Guideline recommends [...] Chest 2012, 141:7S-47S Genevieve RA, et al. [facility] 2017, 70: [phone] Performed By: #### PT, CBCDIF, BMP #### [facility] [address] [place] [address] CBC AND DIFFERENTIAL Collected: 03/23/2018 Status: F Source: [place] 4:23 AM CLINIC OTHER CAMPUS REPOSITORY TYPE [...] k/uL Abs Lymph 1.57 LAB AMONO % Chaves% 12.3 LAB AAMONO <0.87 k/uL Abs Chaves 0.63 LAB AEOS % Eosin% 6.6 LAB AAEOS <0.46 k/uL Abs Eosin 0.34 LAB ABASO % Baso% 0.6 LAB AABASO <0.11 k/uL Abs Baso 0.03 Performed By: #### PT, CBCDIF, BMP #### [facility] [address] [facility] [phone] BASIC METABOLIC PANL Collected: 03/23/2018 Status: F Source: [place] 4:23 AM CLINIC OTHER CAMPUS REPOSITORY TYPE CODE TESTS RESULT OUT OF REFERENCE UNITS RANGE LAB GLU 74-99 mg/dL Glucose 82 Result Comment: The [place] Diabetes Association (ADA) provides guidance for cutoff [...] Standards of Medical Care in Diabetes 2016, [place] [employer]. Diabetes Care. 2016.39(Suppl 1). LAB [...] Performed By: #### PT, CBCDIF, GRETCHEN #### [facility] [address] [facility] [phone] ANES POST Observed: 03/22/2018 Status: COMPLETED Source: [place] 3:10 PM [facility] OTHER CAMPUS REPOSITORY O ID: [id number] Author: Vivek Gonzalez Service: Anesthesiology Author Type: [...] 22, 2018 TIME: 3:10 PM PAGER/CONTACT #: [phone] PROGRESS Observed: 03/22/2018 Status: COMPLETED Source: [place] 2:20 PM CLINIC OTHER CAMPUS REPOSITORY HNO ID: [id number] Author: Liza Stevenson) Asha Service: General Internal Medicine Author Type: Physician Type: Progress Notes Filed: 03/22/2018 2:21 PM Note Text: DEPARTMENT OF HOSPITAL MEDICINE PROGRESS NOTE SERVICE DATE: 03/22/2018 SERVICE TIME: 2:20 PM Hospital Medicine/Primary Attending: Liza Barry MD NIGHT AND WEEKEND COVERAGE: Nights: Please contact pager [phone]. Subjective INTERVAL HPI: pt seen and examined, [...] 03/17/182017 -- 03/17/182029 vte non-pharmacologic prophylaxis contraindicated ([place]) 03/17/182029 vte current anticoag therapy ([place]) VTE Prophylaxis: VTE prophylaxis appropriate Disposition: Home with [facility] Plan of care discussed with: Patient SIGNATURE: Liza Barry MD PATIENT NAME: Rosa Beltran DATE: March 22, 2018 TIME: 2:21 PM PAGER/CONTACT #: [phone] etx [id number] WOUND Observed: 03/22/2018 Status: F Source: [place] CULTURE/STAIN 1:27 PM [facility] REPOSITORY Smear Result - No organisms seen Rare Polymorphonuclear leukocytes Culture Result - Rare Pseudomonas aeruginosa --> ABNORMAL ALERT Refer to specimen collected on 03/19/2018 AT 17:00 ([id number]) Rare --> ABNORMAL ALERT Coagulase negative Staphylococcus species --&gt ; ABNORMAL ALERT No further workup --> ABNORMAL ALERT Performed By: #### WCUL #### [facility] [employer] [address] [place], [place] [address] Observed: 03/22/2018 Status: F Source: [place] ANAEROBE CULTURE 1:27 PM [facility] OTHER [place] REPOSITORY Culture Result - Negative for anaerobes. Performed By: #### ANACUL #### [facility] [employer] [address] [place], [place] [address] BRIEF OP NOT Observed: 03/22/2018 Status: COMPLETED Source: [place] 12:52 PM [facility] OTHER [place] REPOSITORY HNO ID: [id number] Author: Chintan Dempsey DPM Service: Podiatry Author Type: Physician Type: Brief Op Note Filed: 03/22/2018 12:54 PM Note Text: BRIEF OPERATIVE / PROCEDURE NOTE LOG ID: [id number] SURGERY/PROCEDURE DATE: 03/22/2018 INCISION/PROCEDURE START TIME: 12:41 PM INCISION CLOSE/PROCEDURE END TIME: SURGEON(S)/PROCEDURALIST(S) AND SOCIAL SERVICES ANALYST(S): Surgeon(s) and Role: * Chintan Dempsey DPM [...] ANES PREOP Observed: 03/22/2018 Status: COMPLETED Source: [place] 11:36 AM [facility] OTHER [place] REPOSITORY HNO ID: [id number] Author: Taran Lawton Service: Anesthesiology Author Type: [...] (Hcc) Cecal Ulcer Respiratory Failure With Hypoxia ([facility]) Heart Failure With Preserved Ejection Fraction ([facility]) Adjustment Disorder With Depressed Mood Constipation Leg Ulcer, Right, With Fat Layer Exposed ([facility]) PAST MEDICAL HISTORY Diagnosis Date - Acquired hypothyroidism - Acute respiratory failure with hypoxia (HCC) 09/30/2017 - Atrial fibrillation ([facility]) - CAD (coronary artery disease) Dr. Brenda [...] 10/08/2016 - COPD (chronic obstructive pulmonary disease) ([facility]) - Depressive disorder 12/29/2016 - Disruption of [...] tibia - TOTAL KNEE REPLACEMENT Right 2003 [facility] Gen. - TOTAL KNEE REPLACEMENT Left 2004 [facility] Gen. No family history on [...] (6 AM) Dicksonramohjackelyn Meenakshisundaram 100 mcg at 03/22/18 0520 ondansetron [...] March 22, 2018 TIME: 11:36 AM CSN: [id number] CONSULT PROG Observed: 03/22/2018 Status: COMPLETED Source: [place] 9:28 AM CLINIC OTHER CAMPUS REPOSITORY HNO ID: [id number] Author: Checo Kay MD Service: Infectious Disease [...] reviewed Imaging data: reviewed Checo Kay MD [phone] 03/22/2018 9:30 AM PROTIME Collected: 03/22/2018 Status: F Source: [place] 5:33 AM CLINIC OTHER CAMPUS REPOSITORY TYPE CODE TESTS RESULT OUT OF RANGE REFERENCE UNITS LAB PSEC 9.7-13.0 sec High PT Sec 19.1 LAB INR 0.9-1.3 High PT INR 1.9 Result Comment: Vitamin K Antagonist (VKA) Therapeutic Range: INR 2 to 3 (Target INR of 2.5) Note: For patients treated with VKA drugs, such as warfarin, the [place] [employer]icians 2012 Guideline recommends [...] Chest 2012, 141:7S-47S Genevieve RA, et al. [facility] 2017, 70: 252-289 Performed By: #### PT, CBCDIF #### [facility] [address] [facility] [phone] CBC AND DIFFERENTIAL Collected: 03/22/2018 Status: F Source: [place] 5:33 AM CLINIC OTHER CAMPUS REPOSITORY TYPE [...] k/uL Abs Lymph 1.66 LAB AMONO % Chaves% 11.1 LAB AAMONO <0.87 k/uL Abs Chaves 0.58 LAB AEOS % Eosin% 6.5 LAB AAEOS <0.46 k/uL Abs Eosin 0.34 LAB ABASO % Baso% 0.8 LAB AABASO <0.11 k/uL Abs Baso 0.04 Performed By: #### PT, CBCDIF #### [facility] [address] [place] [address] BASIC METABOLIC PANL Collected: 03/22/2018 Status: F Source: [place] 5:33 AM [facility] OTHER CAMPUS REPOSITORY TYPE CODE TESTS RESULT OUT OF REFERENCE UNITS RANGE LAB GLU 74-99 mg/dL Glucose 76 Result Comment: The [place] Diabetes Association (ADA) provides guidance for cutoff [...] Standards of Medical Care in Diabetes 2016, [place] [employer]. Diabetes Care. 2016.39(Suppl 1). LAB [...] actual GFR. Performed By: #### BMP #### [facility] [address] [facility] [phone] NURSING PROG Observed: 03/22/2018 Status: COMPLETED Source: [place] 3:33 AM CLINIC OTHER CAMPUS REPOSITORY [facility] ID: [id number] Author: Timothy (Rn) ELENA Esposito Service: Nursing Author Type: Registered Nurse Type: Nursing Progress Note Filed: 03/22/2018 3:54 AM Note Text: Nursing Progress Note Patient Name: Rosa Beltran Patient Location: [place] [address]/[id number] Daily Note: 3333 LIP paged r/t pt asking for pain med, pt currently NPO. 0351 Okay with NPO except meds per Dr. Reyes. This note was completed by: Timothy Esposito RN OPERATIVE NO Observed: 03/22/2018 Status: COMPLETED Source: [place] 12:00 AM [facility] OTHER CAMPUS REPOSITORY O ID: [id number] Author: Chintan Dempsey DPM Service: Podiatry Author Type: Physician Type: Operative Report Filed: 03/23/2018 8:05 AM Note Text: [facility]- Operative Report ROSA BELTRAN : 1935 AGE: 82 SEX: F ACCTNUM: [id number] [facility]: [facility] LOCATION: [address] ATTENDING PHYSICIAN: LIZA STEVENSON) [facility] DATE OF PROCEDURE: 03/22/2018 SURGEON: Otto ArnoldPKellie. SOCIAL SERVICES ANALYST: GONZALO YeagerY-3. ANESTHESIA: Local sedation. A total [...] the Wound Center. Chintan Dempsey D.P.M. Podiatry RL:[id number] /[id number] cc: * CONSULT PROG Observed: 03/21/2018 Status: COMPLETED Source: [place] 3:25 PM CLINIC OTHER CAMPUS REPOSITORY HNO ID: [id number] Author: Checo Kay MD Service: Infectious Disease [...] reviewed Imaging data: reviewed Checo Kay MD [phone] 03/21/2018 3:26 PM US ARTERIAL PVR Observed: 03/21/2018 Status: F Source: [facility] 3:01 PM CLINIC OTHER CAMPUS REPOSITORY * [...] vasospasm, small vessel disease of the foot. Credit Professional: DWIGHT Transcribe Date/Time: Mar 21 2018 4:03P Dictated by : CARYN SUMMERS MD This examination was interpreted and the report reviewed and electronically signed by: CARYN SUMMERS MD on Mar 21 2018 4:08PM EST [id number] Observed: 03/21/2018 Status: COMPLETED Source: [place] 2:42 PM CLINIC OTHER CAMPUS REPOSITORY HNO ID: [id number] Author: Liza Stevenson) Asha Service: General Internal Medicine Author Type: Physician Type: Progress Notes Filed: 03/22/2018 2:09 PM Note Text: DEPARTMENT OF HOSPITAL MEDICINE PROGRESS NOTE SERVICE DATE: 03/21/2018 SERVICE TIME: 2:45 PM Hospital Medicine/Primary Attending: Liza Barry MD NIGHT AND WEEKEND COVERAGE: Nights: Please contact pager [phone]. Subjective INTERVAL HPI: pt seen and examined, [...] 03/17/182017 -- 03/17/182029 vte non-pharmacologic prophylaxis contraindicated ([place]) 03/17/182029 vte current anticoag therapy ([place]) VTE Prophylaxis: VTE prophylaxis appropriate Disposition: Home with [facility] Plan of care discussed with: Patient SIGNATURE: Liza Barry MD PATIENT NAME: Rosa Beltran DATE: March 21, 2018 TIME: 2:43 PM PAGER/CONTACT #: [phone] etx [id number] NURSING PROG Observed: 03/21/2018 Status: COMPLETED Source: [place] 12:43 PM CLINIC OTHER CAMPUS REPOSITORY O ID: [id number] Author: Gay De La Rosa (Rn) ELENA Lauren Service: (none) Author Type: Registered Nurse Type: Nursing Progress Note Filed: 03/21/2018 3:34 PM Note Text: Nursing Progress Note Patient Name: Rosa Beltran Patient Location: [facility]-0205/RD-2X-0634-2 Daily Note: 1243: Spoke to Dr Barry [...] ALLIED HEALTH Observed: 03/21/2018 Status: COMPLETED Source: [place] 12:30 PM [facility] OTHER CAMPUS REPOSITORY HNO ID: [id number] Author: Svetlana Gonzalez RN Service: Ostomy Author Type: Registered Nurse Type: Allied Health Filed: 03/21/2018 1:38 PM Note Text: Patient seen today and was told podiatry resident had been in earlier and changed her dressings. Plan for OR debridement tomorrow. Deferred visit for today. Svetlana Gonzalez RN CWOCN CONSULT PROG Observed: 03/21/2018 Status: COMPLETED Source: [place] 10:08 AM [facility] REPOSITORY HNO ID: [id number] Author: Jessica Yeager Service: Podiatry Author Type: [...] OF CARE Observed: 03/21/2018 Status: COMPLETED Source: [place] 9:30 AM CLINIC OTHER CAMPUS REPOSITORY HNO ID: [id number] Author: Maritza (Rn) ELENA Cadet Service: Case [...] Layer Exposed (Hcc) Attendees Present at Rounds: Electrotyper Helper: Maritza Cadet Provider: Dr. Barry Needs Discussed [...] Plans on returning hoe with resumption of [facility]. Nursing: Cardiac Intervention(s) Plan: Monitor [...] Management;Position to Optimal Function;Assist with Ambulation and Transfers;[place] Safety Measures;Pressure Ulcer Prevention Mobility Patient/Family Goals: [...] March 21, 2018 TIME: 10:29 AM CSN: [id number] CBC AND DIFFERENTIAL Collected: 03/21/2018 Status: F Source: [place] 4:11 AM CLINIC OTHER CAMPUS REPOSITORY TYPE [...] k/uL Abs Lymph 1.47 LAB AMONO % Chaves% 11.7 LAB AAMONO <0.87 k/uL Abs Chaves 0.66 LAB AEOS % Eosin% 6.2 LAB AAEOS <0.46 k/uL Abs Eosin 0.35 LAB ABASO % Baso% 0.5 LAB AABASO <0.11 k/uL Abs Baso 0.03 Performed By: #### CBCDIF, PT, BMP, MG1 #### [facility] [address] [facility] [phone] PROTIME Collected: 03/21/2018 Status: F Source: [place] 4:11 AM CLINIC OTHER CAMPUS REPOSITORY TYPE CODE TESTS RESULT OUT OF RANGE REFERENCE UNITS LAB PSEC 9.7-13.0 sec High PT Sec 22.9 LAB INR 0.9-1.3 High PT INR 2.3 Result Comment: Vitamin K Antagonist (VKA) Therapeutic Range: INR 2 to 3 (Target INR of 2.5) Note: For patients treated with VKA drugs, such as warfarin, the [place] [employer] Chest Physicians 2012 Guideline recommends [...] Chest 2012, 141:7S-47S Genevieve RA, et al. [facility] 2017, 70: 252-289 Performed By: #### CBCDIF, PT, BMP, MG1 #### [facility] [address] [facility] [phone] BASIC METABOLIC PANL Collected: 03/21/2018 Status: F Source: [place] 4:11 AM [facility] OTHER CAMPUS REPOSITORY TYPE CODE TESTS RESULT OUT OF REFERENCE UNITS RANGE LAB GLU 74-99 mg/dL Glucose 88 Result Comment: The [place] Diabetes Association (ADA) provides guidance for cutoff [...] Standards of Medical Care in Diabetes 2016, [place] [employer] Association. Diabetes Care. 2016.39(Suppl 1). LAB [...] By: #### CBCDIF, PT, BMP, MG1 #### [facility] [address] [facility] [phone] MAGNESIUM Collected: 03/21/2018 Status: F Source: [place] 4:11 AM [facility] OTHER CAMPUS REPOSITORY TYPE CODE TESTS RESULT OUT OF REFERENCE UNITS RANGE LAB MG 1.7-2.3 mg/dL Magnesium 2.0 Performed By: #### CBCDIF, PT, BMP, MG1 #### [facility] [address] [facility] [phone] PROGRESS Observed: 03/21/2018 Status: COMPLETED Source: [place] 1:09 AM [facility] REPOSITORY HNO ID: [id number] Author: Timothy ParksRn) ELENA Esposito Service: Nursing Author Type: Registered Nurse Type: Progress Notes Filed: 03/21/2018 1:10 AM Note Text: Nursing Progress Note Vital Ratings Analyst Assessment Note Patient Name: Rosa Beltran Patient Location: [facility]204/[id number] Patient Vitals in the past 4 hrs: [...] NURSING PROG Observed: 03/21/2018 Status: COMPLETED Source: [place] 1:07 AM [facility] REPOSITORY HNO ID: [id number] Author: Timothy ParksRn) Cate RN Service: Nursing Author Type: Registered Nurse Type: Nursing Progress Note Filed: 03/21/2018 1:07 AM Note Text: Nursing Progress Note Patient Name: Rosa Beltran Patient Location: [facility]204/[id number] Daily Note: 0107 LIP paged r/t order clarification. This note was completed by: Timothy Esposito RN CNCO Observed: 03/21/2018 Status: COMPLETED Source: [place] 12:00 AM [facility] OTHER CAMPUS REPOSITORY Letter Text Rosa Beltran March 21, 2018 [facility] [address] [place], [place] [address] 03/21/2018 [facility]# [id number] Rosa Beltran [address] [place] [phone] Dear Ms. Beltran: We have been unsuccessful in reaching you by phone. Please call our office at for further instructions. Thank you. Sincerely, Cardiology CASE MANAGEM Observed: 03/20/2018 Status: COMPLETED Source: [place] 2:50 PM [facility] OTHER CAMPUS REPOSITORY HNO ID: [id number] Author: Maritza (Elena) ELENA Cadet Service: Case Management Author Type: [...] that she plans on returning home with [facility] for wound care. Patient indicates that she does not feel she needs PT/OT at home. Patient also reports that she wears 2-3 liters of O2 PRN and has a portable O2 tank available if needed. CM assigned will continue to follow. SIGNATURE: Maritza Cadet RN PATIENT NAME: Rosa Beltran DATE: March 20, 2018 TIME: 2:51 PM PAGER/CONTACT #: [phone] MRI LOWER LEG WO Observed: 03/20/2018 Status: F Source: [place] 1:13 PM CLINIC OTHER CAMPUS REPOSITORY * * *Final Report* * * DATE OF EXAM: Mar 20 2018 1:13PM [facility] 0225 - MRI LOWER LEG WO IVCON [...] from hardware. 2. Diffuse soft tissue edema/cellulitis. Credit Professional: PSCB Transcribe Date/Time: Mar 20 2018 2:10P Dictated by : BENNIE VELASQUEZ MD This examination was interpreted and the report reviewed and electronically signed by: BENNIE VELASQUEZ MD on Mar 20 2018 2:22PM EST [id number] PROGRESS Observed: 03/20/2018 Status: COMPLETED Source: [place] 12:58 PM [facility] OTHER CAMPUS REPOSITORY O ID: [id number] Author: Liza Barry Service: General Internal Medicine Author Type: Physician Type: Progress Notes Filed: 03/20/2018 1:08 PM Note Text: DEPARTMENT OF HOSPITAL MEDICINE PROGRESS NOTE SERVICE DATE: 03/20/2018 SERVICE TIME: 12:58 PM Hospital Medicine/Primary Attending: Liza Barry MD NIGHT AND WEEKEND COVERAGE: Nights: Please contact pager [phone]. Subjective INTERVAL HPI: pt seen and examined, [...] Prophylaxis: VTE prophylaxis appropriate Disposition: Home with [facility] Plan of care discussed with: Patient SIGNATURE: Liza Barry MD PATIENT NAME: Rosa Beltran DATE: March 20, 2018 TIME: 12:58 PM PAGER/CONTACT #: [phone] etx [phone] CONSULT PROG Observed: 03/20/2018 Status: COMPLETED Source: [place] 10:45 AM [facility] OTHER CAMPUS REPOSITORY HNO ID: [id number] Author: Checo Kay MD Service: Infectious Disease [...] METABOLIC PANL Collected: 03/20/2018 Status: F Source: [place] 5:00 AM [facility] OTHER CAMPUS REPOSITORY TYPE CODE TESTS RESULT OUT OF REFERENCE UNITS RANGE LAB GLU 74-99 mg/dL Glucose 98 Result Comment: The [place] Diabetes Association (ADA) provides guidance for cutoff [...] Standards of Medical Care in Diabetes 2016, [place] Diabetes Association. Diabetes Care. 2016.39(Suppl 1). LAB [...] GFR. Performed By: #### BMP, MG1 #### [facility] [address] [place] [address] MAGNESIUM Collected: 03/20/2018 Status: F Source: [place] 5:00 AM [facility] OTHER CAMPUS REPOSITORY TYPE CODE TESTS RESULT OUT OF REFERENCE UNITS RANGE LAB MG 1.7-2.3 mg/dL Magnesium 1.8 Performed By: #### BMP, MG1 #### [facility] [address] [place] [address] PROTIME Collected: 03/20/2018 Status: F Source: [place] 5:00 AM [facility] OTHER [place] REPOSITORY TYPE CODE TESTS RESULT OUT OF RANGE REFERENCE UNITS LAB PSEC 9.7-13.0 sec High PT Sec 22.5 LAB INR 0.9-1.3 High PT INR 2.2 Result Comment: Vitamin K Antagonist (VKA) Therapeutic Range: INR 2 to 3 (Target INR of 2.5) Note: For patients treated with VKA drugs, such as warfarin, the [place] College of Chest Physicians 2012 Guideline recommends [...] Chest 2012, 141:7S-47S Genevieve RA, et al. [facility] 2017, 70: 252-289 Performed By: #### PT #### [facility] [address] [place] [address] PROGRESS Observed: 03/19/2018 Status: COMPLETED Source: [place] 6:15 PM [facility] OTHER CAMPUS REPOSITORY HNO ID: [id number] Author: Sydnee (Rn) ELENA Bowles Service: (none) Author Type: Registered Nurse Type: Progress Notes Filed: 03/19/2018 6:16 PM Note Text: Nursing Progress Note Vital Ratings Analyst Assessment Note Patient Name: Rosa Beltran Patient Location: [place] [address]/[id number] Patient Vitals in the past 4 hrs: [...] RN WOUND Observed: 03/19/2018 Status: F Source: [place] CULTURE/STAIN 5:00 PM CLINIC OTHER CAMPUS REPOSITORY [...] 2 F Performed By: #### WCUL #### [address] [place] [phone] NUTRITION Observed: 03/19/2018 Status: COMPLETED Source: [place] 2:03 PM [facility] OTHER CAMPUS REPOSITORY HNO ID: [id number] Author: Deborah Colin Service: Nutrition Therapy Author [...] PM PROGRESS Observed: 03/19/2018 Status: COMPLETED Source: [place] 1:39 PM [facility] OTHER CAMPUS REPOSITORY HNO ID: [id number] Author: Gallito Clarke Service: Hospital Medicine Author Type: Physician Type: Progress Notes Filed: 03/19/2018 3:22 PM Note Text: HOSPITAL MEDICINE PROGRESS NOTE Name: Rosa Beltran SERVICE DATE: 03/19/2018 SERVICE TIME: 1:39 PM LOCATION / ROOM: [place] 933375/[id number] Hospital Medicine/Primary Attending: Gallito Clarke MD NIGHT COVERAGE BETWEEN 5.30P-7.30A Page [phone] ASSESSMENT AND PLAN Active Hospital Problems Diagnosis [...] tab(s) (ZESTRIL, PRINIVIL) 2.5 mg ORAL DAILY [facility] 2.5 mg at 03/18/18 1023 therapeutic [...] (6 AM) Dicksonramohjackelyn Meenakshisundaram 100 mcg at 05/20/18 0554 furosemide 40 mg injection (LASIX) 40 [...] PT ED Observed: 03/19/2018 Status: COMPLETED Source: [place] 1:19 PM [facility] OTHER CAMPUS REPOSITORY HNO ID: [id number] Author: Alisa Beltre (Pharmacist) Service: Pharmacy Author [...] THERAPY NT Observed: 03/19/2018 Status: COMPLETED Source: [place] 12:01 PM [facility] REPOSITORY HNO ID: [id number] Author: Carrie (PtSantino Coello Service: Physical Therapy Author Type: Physical Therapist Type: Therapy (PT/OT/Speech/Resp) Filed: 03/19/2018 12:12 PM Note Text: Physical Therapy Evaluation SERVICE DATE: 03/19/2018 SERVICE TIME: 1100 to 1132 ROOM: [place] [address] Recommended Discharge Disposition: Subacute/SNF Recommended Discharge Disposition [...] (generalized);Unsteadiness on feet Interventions Provided: Evaluation;Therapeutic Activity (84872);Gait Training (30961) $ Evaluation-Low (25640) Billed Units: 1 unit Therapeutic Activity (17100) Treatment Minutes: 9 1 unit Skilled Intervention(s): [...] deferred to minimize pt agitation) Gait Training (05273) Treatment Minutes: 4 Skilled Intervention(s): Instruction in [...] details for this therapy evaluation/treatment. SIGNATURE: Carrie Colelo PT PATIENT NAME: Rosa Beltran DATE: March 19, 2018 TIME: 12:01 PM PAGER/CONTACT #: [phone] THERAPY NT Observed: 03/19/2018 Status: COMPLETED Source: [place] 9:36 AM [facility] OTHER CAMPUS REPOSITORY HNO ID: [id number] Author: Carrie (Pt) Oumou Service: Physical Therapy Author Type: Physical Therapist Type: Therapy (PT/OT/Speech/Resp) Filed: 03/19/2018 1:16 PM Note Text: PHYSICAL THERAPY MISSED VISIT SERVICE DATE: 03/19/2018 SERVICE TIME: 1100 to 1132 ROOM: [place] [address] Attempted Evaluation. 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 Pt was active with [facility], [facility]. Will need new F2F upon dc. CM to continue to follow and support. SIGNATURE: MERY Abraham PATIENT NAME: Rosa Beltran DATE: March 19, 2018 TIME: 8:58 AM PAGER/CONTACT #: [phone] BASIC METABOLIC PANL Collected: 03/19/2018 Status: F Source: [place] 4:53 AM [facility] REPOSITORY TYPE CODE TESTS RESULT OUT OF REFERENCE UNITS RANGE LAB GLU 74-99 mg/dL Glucose 76 Result Comment: The [place] Diabetes Association (ADA) provides guidance for cutoff [...] Standards of Medical Care in Diabetes 2016, [place] [employer] Association. Diabetes Care. 2016.39(Suppl 1). LAB [...] has been calibrated to be traceable to IDWI. An eGFR <60 mL/min/1.73m2 for >3 months is consistent with chronic kidney disease. Refer to KDOQI guidelines for clinical interpretation. In patients with unstable renal function, e.g. those with acute kidney injury, the eGFR may not accurately reflect actual GFR. Performed By: #### BMP, CRP, MG1 #### [place] [address] #### WSR #### [place] [phone] C-REACTIVE PROTEIN Collected: 03/19/2018 Status: F Source: [place] 4:53 AM [facility] OTHER CAMPUS REPOSITORY TYPE CODE TESTS RESULT OUT OF REFERENCE UNITS RANGE LAB CRP <0.9 mg/dL High C-Reactive 6.0 Protein Performed By: #### BMP, CRP, MG1 #### [place] [address] #### WSR #### [place] [phone] MAGNESIUM Collected: 03/19/2018 Status: F Source: [place] 4:53 AM [facility] OTHER [place] REPOSITORY TYPE CODE TESTS RESULT OUT OF REFERENCE UNITS RANGE LAB MG 1.7-2.3 mg/dL Magnesium 1.8 Performed By: #### BMP, CRP, MG1 #### [facility] [address] [place] [address] #### WSR #### [place] [address] [place] [phone] SED RATE WESTERGREN Collected: 03/19/2018 Status: F Source: [place] 4:53 AM [facility] OTHER CAMPUS REPOSITORY TYPE CODE TESTS RESULT OUT OF REFERENCE UNITS RANGE LAB WSR 0-20 mm/hr Sed Rate High Westergren 52 Performed By: #### BMP, CRP, MG1 #### [place] [address] #### WSR #### [facility] [address] [place], [place] [address] PROTIME Collected: 03/19/2018 Status: F Source: [place] 4:53 AM [facility] REPOSITORY TYPE CODE TESTS RESULT OUT OF RANGE REFERENCE UNITS LAB PSEC 9.7-13.0 sec High PT Sec 24.1 LAB INR 0.9-1.3 High PT INR 2.4 Result Comment: Vitamin K Antagonist (VKA) Therapeutic Range: INR 2 to 3 (Target INR of 2.5) Note: For patients treated with VKA drugs, such as warfarin, the [place] [employer] Chest Physicians 2012 Guideline recommends [...] Chest 2012, 141:7S-47S Genevieve RA, et al. [facility] 2017, 70: 252-289 Performed By: #### PT #### [facility] [address] [place] [address] PROGRESS Observed: 03/18/2018 Status: COMPLETED Source: [place] 4:45 PM [facility] REPOSITORY HNO ID: [id number] Author: Sydnee (Rn) ELENA Bowles Service: (none) Author Type: Registered Nurse Type: Progress Notes Filed: 03/18/2018 4:46 PM Note Text: Nursing Progress Note Vital Ratings Analyst Assessment Note Patient Name: Rosa Beltran Patient Location: [facility]-0205/[id number] Patient Vitals in the past 4 hrs: [...] NURSING PROG Observed: 03/18/2018 Status: COMPLETED Source: [place] 4:29 PM [facility] OTHER CAMPUS REPOSITORY HNO ID: [id number] Author: Sdynee (Rn) ELENA Bowles Service: (none) Author Type: Registered Nurse Type: Nursing Progress Note Filed: 03/18/2018 4:43 PM Note Text: Nursing Progress Note Patient Name: Rosa Beltran Patient Location: [place] 933375/[id number] Daily Note: 1300. Paged Dr. Clarke to [...] RN PROGRESS Observed: 03/18/2018 Status: COMPLETED Source: [place] 10:58 AM [facility] OTHER CAMPUS REPOSITORY HNO ID: [id number] Author: Gallito Clarke Service: Hospital Medicine Author Type: Physician Type: Progress Notes Filed: 03/18/2018 11:08 AM Note Text: HOSPITAL MEDICINE PROGRESS NOTE Name: Rosa Beltran SERVICE DATE: 03/18/2018 SERVICE TIME: 10:58 AM LOCATION / ROOM: [place] [address]375/[id number] Hospital Medicine/Primary Attending: Gallito Clarke MD NIGHT COVERAGE BETWEEN 5.30P-7.30A Page [phone] ASSESSMENT AND PLAN Active Hospital Problems Diagnosis [...] tab(s) (COUMADIN) 3 mg ORAL DAILY Karishma Cleary 3 mg at 03/17/18 2135 acetaminophen 1,000 mg tab(s) (TYLENOL) 1,000 mg ORAL q 6 H PRN [facility] Meenakshisundaram 1,000 mg at 03/18/18 0608 gabapentin 300 mg cap(s) (NEURONTIN) 300 mg ORAL BID [facility] Meenakshisundaram 300 mg at 03/18/18 1024 lisinopril 2.5 mg tab(s) (ZESTRIL, PRINIVIL) 2.5 mg ORAL DAILY [facility] Meenakshisundaram 2.5 mg at 03/18/18 1023 metoprolol tartrate (short acting) 12.5 mg tab(s) (LOPRESSOR) 12.5 mg ORAL BID [facility] Meenakshisundaram 12.5 mg at 03/18/18 1024 therapeutic multivitamin with iron (THERAGRAN-M) 1 tablet ORAL DAILY [facility] Meenakshisundaram 1 tablet at 03/18/18 1023 aspirin, enteric coated 81 mg tab(s) (ASPIRIN, ENTERIC COATED) 81 mg ORAL DAILY [facility] Meenakshisundaram 81 mg at 03/18/18 1024 spironolactone 25 mg tab(s) (ALDACTONE) 25 mg ORAL BID [facility] Meenakshisundaram 25 mg at 03/18/[address] 20 mg tab(s) (PROTONIX) 20 mg ORAL DAILY [facility] Meenakshisundaram 20 mg at 03/18/18 0609 metOLAzone 2.5 mg tab(s) (ZAROXOLYN) 2.5 mg ORAL DAILY [facility] Meenakshisundaram 2.5 mg at 03/18/18 1024 levothyroxine 100 mcg tab(s) (SYNTHROID) 100 mcg ORAL DAILY (6 AM) [facility] Meenakshisundaram 100 mcg at 03/18/18 0609 furosemide 40 mg injection (LASIX) 40 mg INTRAVENOUS q 8 H [facility] Meenakshisundaram 40 mg at 03/18/18 0608 ondansetron orally disintegrating 4 mg tab(s) (ZOFRAN ODT) 4 mg ORAL q 6 H PRN [facility] 4 mg at 03/18/18 0609 Or [...] AM CONSULT Observed: 03/18/2018 Status: COMPLETED Source: [place] 9:55 AM CLIN[facility] OTHER CAMPUS REPOSITORY HNO ID: [id number] Author: Jessica Yeager Service: Podiatry Author Type: [...] antibiotics. Pt [facility] and states she also has [facility] assist with dressing changes. Pt denies N/V/F/C/SOB. [...] 10/08/2016 - COPD (chronic obstructive pulmonary disease) ([facility]) - Depressive disorder 12/29/2016 - Disruption of [...] tibia - TOTAL KNEE REPLACEMENT Right 2003 [facility] Gen. - TOTAL KNEE REPLACEMENT Left 2004 [facility] Gen. No family history on [...] daily as directed. Patient is taking 2mg [place] and and 3mg other days. (Patient taking [...] PAGER: CONSULT Observed: 03/18/2018 Status: COMPLETED Source: [place] 8:06 AM [facility]IN[facility] OTHER CAMPUS REPOSITORY HNO ID: [id number] Author: Mariajose Roque Service: Infectious Disease Author [...] with hypoxia (HCC) 09/30/2017 - Atrial fibrillation ([facility]) - CAD (coronary artery disease) Dr. Brenda [...] 10/08/2016 - COPD (chronic obstructive pulmonary disease) ([facility]) - Depressive disorder 12/29/2016 - Disruption of surgical wound 09/2015 Right tibia - Dorsalgia 12/29/2016 - Dyslipidemia - Gastric bypass status for obesity 12/29/2016 - Gastroesophageal reflux disease without esophagitis 10/08/2016 - HTN (hypertension) - Muscular weakness 12/29/2016 - Primary osteoarthritis involving multiple joints 12/29/2016 - Pure hypercholesterolemia - Rheumatoid arthritis ([facility]) 2007 - Sleep apnea - Stented coronary artery 12/29/2016 PAST SURGICAL HISTORY Procedure Laterality Date - CC CORONARY STENT 11/20/2012 [facility] - CC CORONARY STENT 12/20/2014 [facility], Cfx - SECTION HX - COLONOSCOPY 06/10/2017 [facility], Nonspecific cecal ulcer - GASTRIC BYPASS HX 1986 - HERNIA REPAIR HX 1987; 1989 - PAST SURGICAL HISTORY OF Right 09/2015 right tibia fracture [facility] - PAST SURGICAL HISTORY OF Right 01/20/2016 Removal of hardware, right tibia - TOTAL KNEE REPLACEMENT Right 2003 [facility] Gen. - TOTAL KNEE REPLACEMENT Left 2004 [facility] Gen. No family history on [...] METABOLIC PANL Collected: 03/18/2018 Status: F Source: [place] 4:49 AM CLINIC OTHER CAMPUS REPOSITORY TYPE CODE TESTS RESULT OUT OF REFERENCE UNITS RANGE LAB GLU 74-99 mg/dL High Glucose 102 Result Comment: The [place] Diabetes Association (ADA) provides guidance for cutoff [...] Standards of Medical Care in Diabetes 2016, [place] [employer]. Diabetes Care. 2016.39(Suppl 1). LAB [...] has been calibrated to be traceable to IDWI. An eGFR <60 mL/min/1.73m2 for >3 months is consistent with chronic kidney disease. Refer to KDOQI guidelines for clinical interpretation. In patients with unstable renal function, e.g. those with acute kidney injury, the eGFR may not accurately reflect actual GFR. Performed By: #### GRETCHEN, MG1, CBC #### [facility] [address] [facility] [phone] MAGNESIUM Collected: 03/18/2018 Status: F Source: [place] 4:49 AM [facility] OTHER CAMPUS REPOSITORY TYPE CODE TESTS RESULT OUT OF REFERENCE UNITS RANGE LAB MG 1.7-2.3 mg/dL Magnesium 1.7 Performed By: #### GRETCHEN, MG1, CBC #### [facility] [address] [place] [address] CBC Collected: 03/18/2018 Status: F Source: [place] 4:49 AM [facility] OTHER [place] REPOSITORY TYPE CODE TESTS RESULT OUT OF [...] Performed By: #### BMP, MG1, CBC #### [facility] [address] [place] [address] ULTRA-SENSITIVE CRP Collected: 03/18/2018 Status: F Source: [place] 4:49 AM [facility] OTHER [place] REPOSITORY TYPE CODE TESTS RESULT OUT OF [...] for Disease Control and Prevention and the [place] [employer]. Circulation 2003;107:499-511. Performed By: #### HSCRP, WSR #### [facility] [address] [place], [place] [address] SED RATE WESTERGREN Collected: 03/18/2018 Status: F Source: [place] 4:49 AM CLINIC OTHER CAMPUS REPOSITORY TYPE CODE TESTS RESULT OUT OF REFERENCE UNITS RANGE LAB WSR 0-20 mm/hr Sed Rate High [place]gren 52 Performed By: #### HSCRP, WSR #### [facility] [address] [place], [place] [address] PROTIME Collected: 03/18/2018 Status: F Source: [place] 4:49 AM [facility] OTHER CAMPUS REPOSITORY TYPE CODE TESTS RESULT OUT OF RANGE REFERENCE UNITS LAB PSEC 9.7-13.0 sec High PT Sec 22.9 LAB INR 0.9-1.3 High PT INR 2.3 Result Comment: Vitamin K Antagonist (VKA) Therapeutic Range: INR 2 to 3 (Target INR of 2.5) Note: For patients treated with VKA drugs, such as warfarin, the [place] [employer] Chest Physicians 2012 Guideline recommends [...] Chest 2012, 141:7S-47S Genevieve ESTRADA et al. [facility] 2017, 70: 252-289 Performed By: #### PT #### [facility] [address] [place] [address] PROGRESS Observed: 03/17/2018 Status: COMPLETED Source: [place] 8:41 PM [facility]IN[facility] OTHER CAMPUS REPOSITORY O ID: [id number] Author: Quiana Zavala (Pharmacist) Service: Pharmacy Author [...] any questions, please contact inpatient pharmacy at [phone]. Age: [age] year old Allergies: ALLERGIES No [...] ED NOTE Observed: 03/17/2018 Status: COMPLETED Source: [place] 7:50 PM [facility]IN[facility] OTHER CAMPUS REPOSITORY HNO ID: [id number] Author: Echo (Rn) Aviva Yeager RN Service: (none) Author Type: Registered Nurse Type: ED Notes Filed: 03/17/2018 7:51 PM Note Text: ED NOTE Observed: 03/17/2018 Status: COMPLETED Source: [place] 7:37 PM [facility]IN[facility] OTHER CAMPUS REPOSITORY HNO ID: [id number] Author: Echo (Rn) Aviva Yeager, ELENA Service: (none) Author Type: Registered Nurse Type: ED Notes Filed: 03/17/2018 7:39 PM Note Text: talked with pharmacy regarding infiltration of zosyn, nothing noted in police to be uses. Area not red or warm no irritation or tenderness URINALYSIS Collected: 03/17/2018 Status: F Source: [place] 7:00 PM CLIN[facility] OTHER CAMPUS REPOSITORY TYPE CODE TESTS RESULT OUT OF RANGE REFERENCE UNITS LAB UCOL Yellow Color Yellow LAB [facility] Clear Clarity Clear LAB UGLUC Negative mg/dL Glucose, Urine Negative LAB UBIL Negative Bilirubin, Urine Negative LAB UKET Negative Ketones, Urine Negative LAB USPG 1.001-1.029 Specific [place], Ur 1.020 LAB UHGB Negative Hemoglobin/Blood, Negative Ur LAB UPH 5.0-8.0 pH 6.0 LAB UPROT Negative mg/dL Protein, Abnormal Urine Trace Alert LAB UUROB 0.2-1.0 Urobilinogen 0.2 LAB UNITR Negative Nitrites Negative LAB ULKEST Negative Leukest Negative Performed By: #### UA, UAMIC #### [facility] [address] [facility] [phone] URINE MICROSCOPIC Collected: 03/17/2018 Status: F Source: [place] (FOR LAB USE ONLY) 7:00 PM CLINIC [...] Cells Performed By: #### UA, UAMIC #### [facility] [address] [facility] [phone] HISTORY PHYSICAL Observed: 03/17/2018 Status: COMPLETED Source: [place] 6:48 PM [facility]IN[facility] OTHER CAMPUS REPOSITORY HNO ID: [id number] Author: Karishma Cleary Service: General Internal Medicine Author Type: Physician Type: HANDP Filed: 03/18/2018 12:04 AM Note Text: DEPARTMENT OF HOSPITAL MEDICINE HISTORY AND PHYSICAL EXAM SERVICE DATE: 03/17/2018 SERVICE TIME: 6.20 PM Primary Care Physician: Mani Newman MD NIGHT AND WEEKEND COVERAGE: Nights: Please contact pager [phone]. Subjective CHIEF COMPLAINT: worsening of leg ulcers [...] were noted to be 183/81 mm Hg, WV- 60/min, Temp- 98.4, RR- 18/min, SPO2 98 [...] CAD (coronary artery disease) Dr. Brenda Awan [facility], [employer] element [facility] 11/20/2012, Stress test [...] 10/08/2016 - COPD (chronic obstructive pulmonary disease) ([facility]) - Depressive disorder 12/29/2016 - Disruption of surgical wound 09/2015 Right tibia - Dorsalgia 12/29/2016 - Dyslipidemia - Gastric bypass status for obesity 12/29/2016 - Gastroesophageal reflux disease without esophagitis 10/08/2016 - HTN (hypertension) - Muscular weakness 12/29/2016 - Primary osteoarthritis involving multiple joints 12/29/2016 - Pure hypercholesterolemia - Rheumatoid arthritis ([facility]) 2007 - Sleep apnea - Stented coronary artery 12/29/2016 PAST SURGICAL HISTORY Procedure Laterality Date - CC CORONARY STENT 11/20/2012 [facility] - CC CORONARY STENT 12/20/2014 [facility], Cfx - SE[facility] - GASTRIC BYPASS HX 1986 - HERNIA REPAIR HX 1987; 1989 - PAST SURGICAL HISTORY OF Right 09/2015 right tibia fracture ORIF - PAST SURGICAL HISTORY OF Right 01/20/2016 Removal of hardware, right tibia - TOTAL KNEE REPLACEMENT Right 2003 [facility] Gen. - TOTAL KNEE REPLACEMENT Left 2004 [facility] Gen. No family history on [...] March 17, 2018 TIME:12:04 AM PAGER/CONTACT #: [phone] etx [phone] CASE MGT INIT Observed: 03/17/2018 Status: COMPLETED Source: [facility] 6:02 PM CLINIC OTHER CAMPUS REPOSITORY HNO ID: [id number] Author: Tiffany Cabrera) Dariel Service: (none) Author Type: Canal Equipment Mechanic Type: Care Mgt Initial Assessment Filed: 03/17/2018 6:09 PM Note Text: CARE MANAGEMENT: ASSESSMENT AND DISCHARGE PLAN SERVICE DATE: 03/17/2018 SERVICE TIME: 5:50 pm PRIMARY CARE PHYSICIAN: Mnai Newman MD - confirmed with pt ADMISSION STATUS: Emergency MEDICAL: Patient/Wireless Team Member Stated Goals: To have reduction in symptoms To return home to life as it was Health Insurance: MEDICARE A AND B [place] Health Issues Impacting Discharge Plan: Wound right [...] or Home Care? Home Health Care Agency: [facility]; ; Active. Equipment Prior to Admission: Oxygen [...] these needs: Pt is from home with [place] nursing services and plans to resume services [...] 0 I feel financially burdened by my nzg-ew-meqyop expenses for my prescription medication: Disagree completely [...] would like to resume nursing services with [facility] POTENTIAL TRANSITION PLANS Home Home Care SW met with pt and gotkghlp-le-khx bedside. Pt and pfmdqzoo-rh-qjy are familiar with SW from previous hospitalization. Explained role again. Pt is from home and noted that although she and her eblbvukp-um-mwo are in separate units, they live in the same house. Pt reported she has an intercom system and can communicate with her pewkubfx-em-bca. Pt confirmed she is active with [facility] nursing services and wants to resume services upon d/c. Kibhuynw-ip-vkd to transport. SIGNATURE: NAILA AMEZCUA PATIENT NAME: Rosa Beltran DATE: March 17, 2018 TIME: 6:02 PM PAGER/CONTACT #: [phone] ED NOTE Observed: 03/17/2018 Status: COMPLETED Source: [place] 6:00 PM CLINIC OTHER CAMPUS REPOSITORY HNO ID: [id number] Author: Echo (Rn) Aviva Yeager RN Service: (none) Author Type: Registered Nurse Type: ED Notes Filed: 03/17/2018 7:51 PM Note Text: Both heels floated again XR ANKLE 3V AP/LAT/OBL Observed: 03/17/2018 Status: F Source: [place] RT 4:06 PM CLINIC OTHER CAMPUS REPOSITORY [...] trauma, post-operative and degenerative change, as described. Credit Professional: DWIGHT Transcribe Date/Time: Mar 17 2018 4:38P Dictated by : KATHIE CAMERON MD This examination was interpreted and the report reviewed and electronically signed by: KATHIE CAMERON MD on Mar 17 2018 4:43PM EST [id number] XR CHEST 2V FRONTAL/LAT Observed: 03/17/2018 Status: F Source: [place] 4:06 PM CLINIC OTHER CAMPUS REPOSITORY * [...] is unremarkable. 4. Other: Bony structures unremarkable. Credit Professional: DWIGHT Transcribe Date/Time: Mar 17 2018 4:36P Dictated by : HAO YORK DO This examination was interpreted and the report reviewed and electronically signed by: HAO YORK DO on Mar 17 2018 4:46PM EST [id number] ED NOTE Observed: 03/17/2018 Status: COMPLETED Source: [place] 3:48 PM [facility] OTHER CAMPUS REPOSITORY HNO ID: [id number] Author: Jasmeet (Medic) Faby Beltran Service: (none) Author Type: Canvas Marker and Production Lead Type: ED Notes Filed: 03/17/2018 3:48 PM Note Text: Blood cultures drawn and sent. One set. CBC AND DIFFERENTIAL Collected: 03/17/2018 Status: F Source: [place] 3:40 PM [facility] OTHER CAMPUS REPOSITORY TYPE CODE TESTS [...] k/uL Abs Lymph 1.80 LAB AMONO % Chaves% 9.0 LAB AAMONO <0.87 k/uL Abs Chaves 0.61 LAB AEOS % Eosin% 2.7 LAB AAEOS <0.46 k/uL Abs Eosin 0.18 LAB ABASO % Baso% 0.4 LAB AABASO <0.11 k/uL Abs Baso 0.03 Performed By: #### CBCDIF, SLACT, CMP #### [facility] [address] [place] [address] SEPSIS LACTATE Collected: 03/17/2018 Status: F Source: [place] 3:40 PM [facility] OTHER CAMPUS REPOSITORY TYPE CODE TESTS RESULT OUT OF REFERENCE UNITS RANGE LAB SLACTT 0.5-2.0 mmol/L Sepsis 1.1 Lactate Performed By: #### CBCDIF, SLACT, CMP #### [facility] [address] [place] [address] COMP METABOLIC PANEL Collected: 03/17/2018 Status: F Source: [place] 3:40 PM [facility] OTHER CAMPUS REPOSITORY TYPE CODE TESTS [...] mg/dL Glucose High 115 Result Comment: The [place] Diabetes Association (ADA) provides guidance for cutoff [...] Standards of Medical Care in Diabetes 2016, [place] [employer]. Diabetes Care. 2016.39(Suppl 1). LAB [...] Performed By: #### CBCDIF, SLACT, CMP #### [facility] [address] [facility] [phone] NT PRO BNP Collected: 03/17/2018 Status: F Source: [place] 3:40 PM CLINIC OTHER CAMPUS REPOSITORY TYPE CODE TESTS RESULT OUT OF REFERENCE UNITS RANGE LAB PBNP <450 pg/mL High PRO B Natr 2023 Peptide Performed By: #### NTBNP #### [facility] [address] [place] [address] PROTIME Collected: 03/17/2018 Status: F Source: [place] 3:40 [facility] REPOSITORY TYPE CODE TESTS RESULT OUT OF RANGE REFERENCE UNITS LAB PSEC 9.7-13.0 sec High PT Sec 22.8 LAB INR 0.9-1.3 High PT INR 2.3 Result Comment: Vitamin K Antagonist (VKA) Therapeutic Range: INR 2 to 3 (Target INR of 2.5) Note: For patients treated with VKA drugs, such as warfarin, the [place] [employer]icians 2012 Guideline recommends [...] Chest 2012, 141:7S-47S Genevieve RA et al. [facility] 2017, 70: 252-289 Performed By: #### PT, PTT #### [facility] [address] [place] [address] APTT Collected: 03/17/2018 Status: F Source: [place] 3:40 [facility] REPOSITORY TYPE CODE TESTS RESULT OUT OF [...] laboratory APTT reagent in use throughout the [facility]. Performed By: #### PT, PTT #### [facility] [address] [facility] [phone] Observed: 03/17/2018 Status: F Source: [place] BLOOD CULTURE 3:40 PM [facility] REPOSITORY Sp. Request/Comment: - The blood culture bottles are underfilled. Adding volume lower or higher than the 8 to 10 mL per bottle, which is the manufacturers recommended volume, may adversely affect the re covery and/or detection of organisms. 11.8ML Culture Result - No growth 5 days Performed By: #### BLCUL #### [facility] [address] [address] Observed: 03/17/2018 Status: F Source: [place] BLOOD CULTURE 3:40 PM [facility] REPOSITORY Culture Result - No growth 5 days Performed By: #### BLCUL #### [facility] [address] [address] ED NOTE Observed: 03/17/2018 Status: COMPLETED Source: [place] 3:23 PM [facility] REPOSITORY HNO ID: [id number] Author: Roxann ParksRnSantino Kimbrough RN Service: (none) Author Type: Registered Nurse Type: ED Notes Filed: 03/17/2018 3:23 PM Note Text: Patient presents to ED with leg pain swelling infection ED PROV NOTE Observed: 03/17/2018 Status: COMPLETED Source: [place] 3:14 PM [facility] REPOSITORY HNO ID: [id number] Author: Karan Diallo DO Service: Emergency Medicine [...] with hypoxia (HCC) 09/30/2017 - Atrial fibrillation ([facility]) - CAD (coronary artery disease) Dr. Brenda [...] 10/08/2016 - COPD (chronic obstructive pulmonary disease) ([facility]) - Depressive disorder 12/29/2016 - Disruption of surgical wound 09/2015 Right tibia - Dorsalgia 12/29/2016 - Dyslipidemia - Gastric bypass status for obesity 12/29/2016 - Gastroesophageal reflux disease without esophagitis 10/08/2016 - HTN (hypertension) - Muscular weakness 12/29/2016 - Primary osteoarthritis involving multiple joints 12/29/2016 - Pure hypercholesterolemia - Rheumatoid arthritis ([facility]) 2007 - Sleep apnea - Stented coronary artery 12/29/2016 PAST SURGICAL HISTORY Procedure Laterality Date - CC CORONARY STENT 11/20/2012 [facility]IM[facility] LAD - CC CORONARY STENT 12/20/2014 KIMMY, Cfx - SECTION HX - COLONOSCOPY 06/10/2017 [facility], Nonspecific cecal ulcer - GASTRIC BYPASS HX 1986 - HERNIA REPAIR HX 1987; 1989 - PAST SURGICAL HISTORY OF Right 09/2015 right tibia fracture ORIF - PAST SURGICAL HISTORY OF Right 01/20/2016 Removal of hardware, right tibia - TOTAL KNEE REPLACEMENT Right 2003 [facility] Gen. - TOTAL KNEE REPLACEMENT Left 2004 [facility] Gen. No family history on [...] Reviewed - No data to display BNP 2000 ED imaging studies ordered and reviewed X-ray of right ankle with evidence of remote trauma Chest x-ray with chronic appearing moderate diffuse alveolar consolidations throughout both lungs likely pulmonary edema Procedures Medical Decision Making IV started Nursing notes and vital signs reviewed Triage note reviewed Patient's wmqhdhhn-gh-kgk provides elements of past medical history and [...] admit. This note was partially generated using [employer] voice recognition system, and there may be some incorrect words, spellings, and punctuation that were not noted in checking the note before saving ED Course / Clinical Impression Clinical Impressions as of Mar 17 1656 Wound infection Plan SIGNATURE: Sachin Medellin PA-C Sachin (Saeed) Lacie 03/17/18 1740 Sachin (Saeed) Lacie 03/17/18 1741 Attending Note I have personally performed a face to face assessment of the patient and have reviewed the PA/CELEBRITY CHEF ENTREPRENEUR MEDIA PERSONALITY note. My [place] findings include: History is [...] 181 PROGRESS Observed: 03/17/2018 Status: COMPLETED Source: [place] 2:15 PM CLINIC OTHER CAMPUS REPOSITORY O ID: [id number] Author: Luis Rodriguez) Carla Service: (none) Author Type: Nurse Practitioner Type: Progress Notes Filed: 04/03/2018 5:31 AM Note Text: DATE OF VISIT: 03/17/2018 REASON FOR VISIT: Non-healing lower extremity wound. HISTORY OF PRESENT ILLNESS: Rosa Beltran is a 81 year old female who presents to the [facility] for further evaluation [...] followed by Dr. Jaskaran Chance at the [facility]. It was felt that her home support system was inadequate and that she may not have the resources in her home environment to appropriately care for her needs. In this regard, a social worker palliative care consultation had been recommended on several occassions, but patient apparently insisted on remaining in her home environment despite that there was thought that is may be less than optimal. The patient is here at the [facility] for a second opinion [...] hypothyroidism - Acute respiratory failure with hypoxia ([facility]) 09/30/2017 - Atrial fibrillation ([facility]) - CAD (coronary artery disease) Dr. Brenda [...] 10/08/2016 - COPD (chronic obstructive pulmonary disease) ([facility]) - Depressive disorder 12/29/2016 - Disruption of [...] tibia - TOTAL KNEE REPLACEMENT Right 2003 [facility] Gen. - TOTAL KNEE REPLACEMENT Left 2004 [facility] Gen. MEDICATIONS ergocalciferol, vitamin D2, [...] Rubor of Dependency: Negative (Y) Positive (N) [place] Examination: Comments: Measurements: Right Calf: 57 cm Right Ankle: 37 cm Left Calf: 50.5 cm Left Ankle: 33.5 cm Neuro: Alert AND oriented x3, ENGINE RESEARCH ENGINEER II-XII grossly intact, reflexes 2+ and symmetric, [...] No acute fracture or bony destruction. ? Credit Professional: DWIGHT ? Transcribe Date/Time: Oct 14 2017 [...] No acute fracture or bony destruction. ? Credit Professional: DWIGHT ? Transcribe Date/Time: Oct 14 2017 [...] and Edge attached to base Periwound Tissue: [place], dry and intact, No fluctuance, induration or [...] and Edge attached to base Periwound Tissue: [place], dry and intact, No fluctuance, induration or [...] -- Week 5 Wound Bed (Post-debridement): 100% [place] % of Healthy tissue: Undermining: No Tunneling: No Tendon/bone exposed: NO Wound Edge/Margins: Well-defined wound edges and Edge attached to base Periwound Tissue: [place], dry and intact, No fluctuance, induration or [...] Systemis Rx: Begin: Doxycycline to prevent reoccurant [id number] mg PO BID x 14 days then [...] worsening symptoms. Luis Simons CNP Charge Capture: [id number] CNOV Observed: 03/17/2018 Status: COMPLETED Source: [place] 2:15 PM [facility] OTHER [place] REPOSITORY Office Visit (PLWDMR) ROSA BELTRAN ([id number]) 1935 F Date Time Provider Department 03/17/18 [...] year old female who presents to the [facility] for further evaluation [...] sent to the ER for further evaluation. Tifafnie BARBOSA wheeled patient to the ER. INTERVAL [...] followed by Dr. Jaskaran Chance at the [facility]. It was felt that her home support system was inadequate and that she may not have the resources in her home environment to appropriately care for her needs. In this regard, a social worker palliative care consultation had been recommended on several occassions, but patient apparently insisted on remaining in her home environment despite that there was thought that is may be less than optimal. The patient is here at the [facility] for a second opinion [...] 10/08/2016 - COPD (chronic obstructive pulmonary disease) ([facility]) - Depressive disorder 12/29/2016 - Disruption of surgical wound 09/2015 Right tibia - Dorsalgia 12/29/2016 - Dyslipidemia - Gastric bypass status for obesity 12/29/2016 - Gastroesophageal reflux disease without esophagitis 10/08/2016 - HTN (hypertension) - Muscular weakness 12/29/2016 - Primary osteoarthritis involving multiple joints 12/29/2016 - Pure hypercholesterolemia - Rheumatoid arthritis ([facility]) 2007 - Sleep apnea - Stented coronary artery 12/29/2016 PAST SURGICAL HISTORY Procedure Laterality Date - CC CORONARY STENT 11/20/2012 [facility] - CC CORONARY STENT 12/20/2014 KIMMY, Cfx - SE[facility] - GASTRIC BYPASS HX 1986 - HERNIA REPAIR HX 1987; 1989 - PAST SURGICAL HISTORY OF Right 09/2015 right tibia fracture ORIF - PAST SURGICAL HISTORY OF Right 01/20/2016 Removal of hardware, right tibia - TOTAL KNEE REPLACEMENT Right 2003 [facility] Gen. - TOTAL KNEE REPLACEMENT Left 2004 [facility] Gen. MEDICATIONS ergocalciferol, vitamin D2, [...] Rubor of Dependency: Negative (Y) Positive (N) [place] Examination: Comments: Measurements: Right Calf: 57 cm Right Ankle: 37 cm Left Calf: 50.5 cm Left Ankle: 33.5 cm Neuro: Alert AND oriented x3, ENGINE RESEARCH ENGINEER II-XII grossly intact, reflexes 2+ and symmetric, [...] No acute fracture or bony destruction. ? Credit Professional: DWIGHT ? Transcribe Date/Time: Oct 14 2017 [...] No acute fracture or bony destruction. ? Credit Professional: DWIGHT ? Transcribe Date/Time: Oct 14 2017 [...] and Edge attached to base Periwound Tissue: [place], dry and intact, No fluctuance, induration or [...] and Edge attached to base Periwound Tissue: [place], dry and intact, No fluctuance, induration or [...] -- Week 5 Wound Bed (Post-debridement): 100% [place] % of Healthy tissue: Undermining: No Tunneling: No Tendon/bone exposed: NO Wound Edge/Margins: Well-defined wound edges and Edge attached to base Periwound Tissue: [place], dry and intact, No fluctuance, induration or [...] Systemis Rx: Begin: Doxycycline to prevent reoccurant [id number] mg PO BID x 14 days then [...] worsening symptoms. Luis Simons CNP Charge Capture: [id number] Tfifanie Humphrey, RN, RN 03/17/2018 2:51 PM Addendum [...] 04/03/18 HOSP Observed: 03/17/2018 Status: COMPLETED Source: [place] 12:00 AM CLINIC OTHER CAMPUS REPOSITORY Patient:Rosa Beltran MRN: <[id number]> Height:5' 4(1.626 m) Weight:206 lb 2.1 oz [...] Leg ulcer, right, with fat layer exposed ([facility]) [L97.912] Allergies: No Known Allergies Date Verified:03/22/18 Lab Values Lab Value Units Date High Low POTA* 4.6 mmol/L 03/21/2018 5.1 3.7 MINH* 34.5 % 03/22/2018 46.0 36.0 Progress Notes ([facility]): SELENA Treviño, CT 03/20/2018 12:17 PM Sign [...] 10/08/2016 - COPD (chronic obstructive pulmonary disease) ([facility]) - Depressive disorder 12/29/2016 - Disruption of surgical wound 09/2015 Right tibia - Dorsalgia 12/29/2016 - Dyslipidemia - Gastric bypass status for obesity 12/29/2016 - Gastroesophageal reflux disease without esophagitis 10/08/2016 - HTN (hypertension) - Muscular weakness 12/29/2016 - Primary osteoarthritis involving multiple joints 12/29/2016 - Pure hypercholesterolemia - Rheumatoid arthritis ([facility]) 2007 - Sleep apnea - Stented coronary [...] tibia - TOTAL KNEE REPLACEMENT Right 2003 [facility] Gen. - TOTAL KNEE REPLACEMENT Left 2004 [facility] Gen. No family history on [...] vital signs reviewed Triage note reviewed Patient's aasejoiu-my-mio provides elements of past medical history and [...] admit. This note was partially generated using [employer] voice recognition system, and there may be some incorrect words, spellings, and punctuation that were not noted in checking the note before saving ED Course / Clinical Impression Clinical Impressions as of Mar 17 1656 Wound infection Plan SIGNATURE: Sachin Medellin PA-C Sachinbrennon Avendano) Lacie 03/17/181739 Sachin Avendano) Lacie 03/17/181740 Attending Note I have personally performed a face to face assessment of the patient and have reviewed the PA/CELEBRITY CHEF ENTREPRENEUR MEDIA PERSONALITY note. My [place] findings include: History is [...] Karan Diallo DO 03/17/181811 Previous Version Roxann Kimbrough, RN, RN 03/17/2018 3:23 PM Signed Patient presents to ED with leg pain swelling infection Jasmeet Beltran Medic, Medic 03/17/2018 3:48 PM Signed Blood cultures drawn and sent. One set. 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 Home Health Care Agency: [facility]; ; Active. Equipment Prior to Admission: Oxygen [...] these needs: Pt is from home with [facility] nursing services and plans to resume [...] 0 I feel financially burdened by my rha-vy-ewcsfy expenses for my prescription medication: Disagree completely [...] would like to resume nursing services with [facility] POTENTIAL TRANSITION PLANS Home Home Care SW met with pt and nynrzggu-qc-hbn bedside. Pt and ihssflrn-jv-yul are familiar with SW from previous hospitalization. Explained role again. Pt is from home and noted that although she and her oremmhms-qe-nhj are in separate units, they live in the same house. Pt reported she has an intercom system and can communicate with her jzfiyeht-pe-sxk. Pt confirmed she is active with [facility] nursing services and wants to resume services upon d/c. Xigpqbue-lm-cmf to transport. SIGNATURE: NAILA AMEZCUA PATIENT NAME: Rosa Beltran DATE: March 17, 2018 TIME: 6:02 PM PAGER/CONTACT #: [phone] Karishma Cleary MD 03/18/2018 12:04 AM Signed DEPARTMENT OF HOSPITAL MEDICINE HISTORY AND PHYSICAL EXAM SERVICE DATE: 03/17/2018 SERVICE TIME: 6.20 PM Primary Care Physician: Mani Newman MD NIGHT AND WEEKEND COVERAGE: Nights: Please contact pager [phone]. Subjective CHIEF COMPLAINT: worsening of leg ulcers [...] were noted to be 183/81 mm Hg, WV- 60/min, Temp- 98.4, RR- 18/min, SPO2 98 % on 3 L NC O2. CBC and BMP normal. INR - 2.3. Podiatry consulted from ED. She is admitted for management of worsening of leg ulcers with cellulitis. PAST MEDICAL HISTORY Diagnosis Date - Acquired hypothyroidism - Acute respiratory failure with hypoxia (HCC) 09/30/2017 - Atrial fibrillation ([facility]) - CAD (coronary artery disease) Dr. Brenda [...] 10/08/2016 - COPD (chronic obstructive pulmonary disease) ([facility]) - Depressive disorder 12/29/2016 - Disruption of [...] tibia - TOTAL KNEE REPLACEMENT Right 2003 [facility] Gen. - TOTAL KNEE REPLACEMENT Left 2004 [facility] Gen. No family history on [...] March 17, 2018 TIME:12:04 AM PAGER/CONTACT #: [phone] etx [phone] Echo Yeager, RN, RN 03/17/2018 7:39 PM [...] any questions, please contact inpatient pharmacy at [phone]. Age: [age] year old Allergies: ALLERGIES No [...] hypothyroidism - Acute respiratory failure with hypoxia ([facility]) 09/30/2017 - Atrial fibrillation ([facility]) - CAD (coronary artery disease) Dr. Brenda [...] 10/08/2016 - COPD (chronic obstructive pulmonary disease) ([facility]) - Depressive disorder 12/29/2016 - Disruption of [...] tibia - TOTAL KNEE REPLACEMENT Right 2003 [facility] Gen. - TOTAL KNEE REPLACEMENT Left 2004 [facility] Gen. No family history on [...] mouth every evening. Disp: 30 tablet Rfl: 03/17/2018 at Unknown time omeprazole (PRILOSEC) 20 [...] antibiotics. Pt has been seen [facility] and states she also has [facility] assist with dressing changes. Pt denies N/V/F/C/SOB. PAST MEDICAL HISTORY Diagnosis Date - Acquired hypothyroidism - Acute respiratory failure with hypoxia ([facility]) 09/30/2017 - Atrial fibrillation ([facility]) - CAD (coronary artery disease) Dr. Brenda [...] 10/08/2016 - COPD (chronic obstructive pulmonary disease) ([facility]) - Depressive disorder 12/29/2016 - Disruption of surgical wound 09/2015 Right tibia - Dorsalgia 12/29/2016 - Dyslipidemia - Gastric bypass status for obesity 12/29/2016 - Gastroesophageal reflux disease without esophagitis 10/08/2016 - HTN (hypertension) - Muscular weakness 12/29/2016 - Primary osteoarthritis involving multiple joints 12/29/2016 - Pure hypercholesterolemia - Rheumatoid arthritis ([facility]) 2007 - Sleep apnea - Stented coronary artery 12/29/2016 PAST SURGICAL HISTORY Procedure Laterality Date - CC CORONARY STENT 11/20/2012 K[facility] LAD - CC CORONARY STENT 12/20/2014 KIMMY, Cfx - SECTION HX - COLONOSCOPY 06/10/2017 [facility], Nonspecific cecal ulcer - GASTRIC BYPASS HX 1986 - HERNIA REPAIR HX 1987; 1989 - PAST SURGICAL HISTORY OF Right 09/2015 right tibia fracture ORIF - PAST SURGICAL HISTORY OF Right 01/20/2016 Removal of hardware, right tibia - TOTAL KNEE REPLACEMENT Right 2003 [facility] Gen. - TOTAL KNEE REPLACEMENT Left 2004 [facility] Gen. No family history on [...] SERVICE TIME: 10:58 AM LOCATION / ROOM: [place] [address]/[place] [address] Hospital Medicine/Primary Attending: Gallito Clarke MD NIGHT COVERAGE BETWEEN 5.30P-7.30A Page [phone] ASSESSMENT AND PLAN Active Hospital Problems Diagnosis [...] 0.25% (DAKINS HALF- STRENGTH) IRRIGATION ONCE Jessica (Marvin) Jimmy warfarin 3 mg tab(s) (COUMADIN) 3 mg ORAL DAILY Karishma Busbyhisundaram 3 mg at 03/17/18 2021 acetaminophen 1,000 mg tab(s) (TYLENOL) 1,000 mg ORAL q 6 H [facility] Meenakshisundaram 1,000 mg at 03/18/18 0608 gabapentin 300 mg cap(s) (NEURONTIN) 300 mg ORAL BID [facility] Meenaksh[facility] 300 mg at 03/18/18 1024 lisinopril 2.5 mg tab(s) (ZESTRIL, PRINIVIL) 2.5 mg ORAL DAILY [facility] Meen[facility]sh[facility] 2.5 mg at 03/18/18 1023 metoprolol tartrate (short acting) 12.5 mg tab(s) (LOPRESSOR) 12.5 mg ORAL BID [facility] Meenaksh[facility] 12.5 mg at 03/18/18 1024 therapeutic multivitamin with iron (THERAGRAN-M) 1 tablet ORAL DAILY [facility] 1 tablet at 03/18/18 1023 aspirin, enteric coated 81 mg tab(s) (ASPIRIN, ENTERIC COATED) 81 mg ORAL DAILY [facility] Meenaksh[facility] 81 mg at 03/18/18 1024 spironolactone 25 mg tab(s) (ALDACTONE) 25 mg ORAL BID [facility] Meenakshisundaram 25 mg at 03/18/[address] 20 mg tab(s) (PROTONIX) 20 mg ORAL DAILY [facility] Meenakshisundaram 20 mg at 03/18/18 0609 metOLAzone 2.5 mg tab(s) (ZAROXOLYN) 2.5 mg ORAL DAILY [facility] Meen[facility]sh[facility] 2.5 mg at 03/18/18 1024 levothyroxine 100 mcg tab(s) (SYNTHROID) 100 mcg ORAL DAILY (6 AM) [facility] Meenakshisundaram 100 mcg at 03/18/18 0609 furosemide 40 mg injection (LASIX) 40 mg INTRAVENOUS q 8 H [facility] Meenakshisundaram 40 mg at 03/18/18 0608 ondansetron orally disintegrating 4 mg tab(s) (ZOFRAN ODT) 4 mg ORAL q 6 H PRN [facility] Meenakshisundaram 4 mg at 03/18/18 0609 Or [...] Note Patient Name: Rosa Beltran Patient [place] [facility] [place]/[id number] Daily Note: 1300. Paged Dr. Clarke to [...] Hour. This note was completed by: Sydnee Bwoles RN Previous Version Sydnee Bowles RN, RN 03/18/2018 4:46 PM Signed Nursing Progress Note Vital Ratings Analyst Assessment Note Patient Name: Rosa Beltran Patient Location: [facility]204/[id number] Patient Vitals in the past 4 hrs: [...] SERVICE TIME: 8:59 AM LOS: 2 days TRACTOR TRAILER DRIVER updated ref to [facility]. Pt was active with [facility], BEHAVIORAL HEALTH DIRECTOR. Will need new F2F upon dc. CM to continue to follow and support. SIGNATURE: MERY Abraham PATIENT NAME: Rosa Beltran DATE: March 19, 2018 TIME: 8:58 AM PAGER/CONTACT #: [phone] Carrie Coello, PT 03/19/2018 1:16 PM Signed PHYSICAL THERAPY MISSED VISIT SERVICE DATE: 03/19/2018 SERVICE TIME: 1100 to 1132 ROOM: [place] [address] Attempted Evaluation. Patient not seen due to [...] 19, 2018 TIME: 9:36 AM PAGER/CONTACT #: [phone] Carrie Coello, PT 03/19/2018 12:12 PM Signed Physical Therapy Evaluation SERVICE DATE: 03/19/2018 SERVICE TIME: 1100 to 1132 ROOM: [place] [address] Recommended Discharge Disposition: Subacute/SNF Recommended Discharge Disposition [...] (generalized);Unsteadiness on feet Interventions Provided: Evaluation;Therapeutic Activity (35291);Gait Training (65533) $ Evaluation-Low (57595) Billed Units: 1 unit Therapeutic Activity (09420) Treatment Minutes: 9 1 unit Skilled Intervention(s): [...] deferred to minimize pt agitation) Gait Training (11085) Treatment Minutes: 4 Skilled Intervention(s): Instruction in [...] 19, 2018 TIME: 12:01 PM PAGER/CONTACT #: [phone] Alisa Beltre, Pharmacist 03/19/2018 1:26 PM Signed PHARMACY WARFARIN [...] SERVICE TIME: 1:39 PM LOCATION / ROOM: [place] [address]33375/[id number] Hospital Medicine/Primary Attending: Gallito Clarke MD NIGHT COVERAGE BETWEEN 5.30P-7.30A Page [phone] ASSESSMENT AND PLAN Active Hospital Problems Diagnosis [...] H PRN Dicksonramohan Meenakshisundaram 1,000 mg at 03/19/18 0823 gabapentin 300 mg cap(s) (NEURONTIN) 300 mg ORAL BID Chandramohan Meenakshisundaram 300 mg at 03/19/18 0824 lisinopril 2.5 mg tab(s) (ZESTRIL, PRINIVIL) 2.5 mg ORAL DAILY [facility] Meenakshisundaram 2.5 mg at 03/18/18 1023 therapeutic [...] 6:16 PM Signed Nursing Progress Note Vital Ratings Analyst Assessment Note Patient Name: Rosa Beltran Patient [place] [facility] [place][id number] Patient Vitals in the past 4 hrs: [...] AND WEEKEND COVERAGE: Nights: Please contact pager [phone]. Subjective INTERVAL HPI: pt seen and examined, [...] 03/17/182017 -- 03/17/182029 vte non-pharmacologic prophylaxis contraindicated (wy,pa) 03/17/182029 vte current anticoag therapy ([place]) VTE Prophylaxis: VTE prophylaxis appropriate Disposition: Home with [facility] Plan of care discussed with: Patient SIGNATURE: Liza Barry MD PATIENT NAME: Rosa Beltran DATE: March 20, 2018 TIME: 12:58 PM PAGER/CONTACT #: [phone] etx [phone] Maritza Cadet, RN, RN 03/20/2018 2:54 PM Signed CARE [...] that she plans on returning home with [facility] for wound care. Patient indicates that she does not feel she needs PT/OT at home. Patient also reports that she wears 2-3 liters of O2 PRN and has a portable O2 tank available if needed. CM assigned will continue to follow. SIGNATURE: Maritza Cadet RN PATIENT NAME: Rosa Beltran DATE: March 20, 2018 TIME: 2:51 PM PAGER/CONTACT #: [phone] Timothy Esposito, RN, RN 03/21/2018 1:07 AM Signed Nursing Progress Note Patient Name: Rosa Beltran [facility]/[id number] Daily Note: 0107 LIP paged r/t order clarification. This note was completed by: ELENA Shirley RN, RN 03/21/2018 1:10 AM Signed Nursing Progress Note Vital Ratings Analyst Assessment Note Patient Name: Rosa Beltran Patient Location: [facility] [place]2S-0205/TS-8U-7113-2 Patient Vitals in the past 4 hrs: [...] Layer Exposed (Hcc) Attendees Present at Rounds: Electrotyper Helper: Maritza Cadet Provider: Dr. Barry Needs Discussed [...] Plans on returning hoe with resumption of [facility]. Nursing: Cardiac Intervention(s) Plan: Monitor [...] Management;Position to Optimal Function;Assist with Ambulation and Transfers;[place] Safety Measures;Pressure Ulcer Prevention Mobility Patient/Family Goals: [...] March 21, 2018 TIME: 10:29 AM CSN: [id number] Jessica Yeager DPM 03/21/2018 10:15 AM Signed [...] Note Patient Name: Rosa Beltran Patient Location: [facility]5/RR-0W-9010-2 Daily Note: 1243: Spoke to Dr Barry [...] AND WEEKEND COVERAGE: Nights: Please contact pager [phone]. Subjective INTERVAL HPI: pt seen and examined, [...] Prophylaxis: VTE prophylaxis appropriate Disposition: Home with [facility] Plan of care discussed with: Patient SIGNATURE: Liza Barry MD PATIENT NAME: Rosa Beltran DATE: March 21, 2018 TIME: 2:43 PM PAGER/CONTACT #: [phone] etx [phone] Previous Version Checo Kay MD, 03/21/2018 3:27 [...] reviewed Imaging data: reviewed Checo Kay MD [phone] 03/21/2018 3:26 PM Timothy Esposito, ELENA, RN 03/22/2018 3:54 AM Addendum Nursing Progress Note Patient Name: Rosa Beltran Patient Location: [place] [address]/[id number] Daily Note: 3333 LIP paged r/t pt [...] reviewed Imaging data: reviewed Checo Kay MD [phone] 03/22/2018 9:30 AM Taran Lawton MD 03/22/2018 [...] Leg Ulcer, Right, With Fat Layer Exposed ([facility]) PAST MEDICAL HISTORY Diagnosis Date - Acquired hypothyroidism - Acute respiratory failure with hypoxia (HCC) 09/30/2017 - Atrial fibrillation ([facility]) - CAD (coronary artery disease) Dr. Brenda [...] 10/08/2016 - COPD (chronic obstructive pulmonary disease) ([facility]) - Depressive disorder 12/29/2016 - Disruption of [...] tibia - TOTAL KNEE REPLACEMENT Right 2003 [facility] Gen. - TOTAL KNEE REPLACEMENT Left 2004 [facility] Gen. No family history on [...] with iron (THERAGRAN-M) 1 tablet ORAL DAILY Dicksonramohjackelyn Meenakshisundaram 1 tablet at 03/22/18 0908 aspirin, enteric coated 81 mg tab(s) (ASPIRIN, ENTERIC COATED) 81 mg ORAL DAILY Chandramohan Meenakshisundaram 81 mg at 03/21/[address] 20 mg tab(s) (PROTONIX) 20 mg ORAL DAILY Chandramohjackelyn Meenakshisundaram 20 mg at 03/22/18 0520 levothyroxine [...] (DEFINITY) 1.3 mL INTRAVENOUS DIRECTED PRN Karishma Swartzundarasimone Allergies: ALLERGIES No Known Allergies DOS EXAM: [...] March 22, 2018 TIME: 11:36 AM CSN: [id number] PROGRESS Observed: 03/13/2018 Status: COMPLETED Source: [place] 1:06 PM [facility] [place] REPOSITORY [facility] ID: [id number] Author: Ty Beckman Service: (none) Author Type: Physician Type: Progress Notes Filed: 03/13/2018 11:23 PM Note Text: Ty Beckman DPM Department of Podiatry [address] [facility] [address] Dept: [phone] Dept Nail Care SUBJECTIVE: Follow up office [...] length and thickness Continue wound care per [facility] f/u in 3 months Ty Beckman DPM CNOV Observed: 03/13/2018 Status: COMPLETED Source: [place] 12:40 PM [facility] REPOSITORY Office Visit (PODIWS) ROSA BELTRAN ([id number]) 1935 F Date Time Provider Department 03/13/18 12:40 PM TY BECKMAN PODIWS During your visit today, we recorded the following information about you: Ty Beckman 03/13/2018 11:23 PM Signed Ty Beckman DPM Department of Podiatry [facility] [address] [facility] [address] Dept: [phone] Dept Nail Care SUBJECTIVE: Follow up office [...] length and thickness Continue wound care per [facility] f/u in 3 months Ty Beckman DPM Referring Provider: TY BECKMAN [[id number]] Allergies As of Date: 03/13/2018 (No Known [...] 03/13/18 PROGRESS Observed: 03/08/2018 Status: COMPLETED Source: [place] 2:00 PM CLINIC OTHER [facility] REPOSITORY HNO ID: [id number] Author: Luis Lyles (Loi) Carla Service: (none) Author Type: Nurse Practitioner Type: Progress Notes Filed: 03/20/2018 2:15 PM Note Text: DATE OF VISIT: 03/08/2018 REASON FOR VISIT: Non-healing lower extremity wound. HISTORY OF PRESENT ILLNESS: Rosa Beltran is a 81 year old female who presents to the [facility] for further evaluation [...] followed by Dr. Jaskaran Chance at the [facility]. It was felt that her home support system was inadequate and that she may not have the resources in her home environment to appropriately care for her needs. In this regard, a social worker palliative care consultation had been recommended on several occassions, but patient apparently insisted on remaining in her home environment despite that there was thought that is may be less than optimal. The patient is here at the [facility] for a second opinion [...] hypothyroidism - Acute respiratory failure with hypoxia ([facility]) 09/30/2017 - Atrial fibrillation ([facility]) - CAD (coronary artery disease) Dr. Brenda [...] 10/08/2016 - COPD (chronic obstructive pulmonary disease) ([facility]) - Depressive disorder 12/29/2016 - Disruption of surgical wound 09/2015 Right tibia - Dorsalgia 12/29/2016 - Dyslipidemia - Gastric bypass status for obesity 12/29/2016 - Gastroesophageal reflux disease without esophagitis 10/08/2016 - HTN (hypertension) - Muscular weakness 12/29/2016 - Primary osteoarthritis involving multiple joints 12/29/2016 - Pure hypercholesterolemia - Rheumatoid arthritis ([facility]) 2007 - Sleep apnea - Stented coronary artery 12/29/2016 PAST SURGICAL HISTORY Procedure Laterality Date - CC CORONARY STENT 11/20/2012 KIMMY LAD - CC CORONARY STENT 12/20/2014 [facility], Cfx - [facility] - GASTRIC BYPASS HX 1986 - HERNIA REPAIR HX 1987; 1989 - PAST SURGICAL HISTORY OF Right 09/2015 right tibia fracture ORIF - PAST SURGICAL HISTORY OF Right 01/20/2016 Removal of hardware, right tibia - TOTAL KNEE REPLACEMENT Right 2003 [facility] Gen. - TOTAL KNEE REPLACEMENT Left 2004 [facility] Gen. MEDICATIONS ergocalciferol, vitamin D2, [...] Rubor of Dependency: Negative (Y) Positive (N) [place] Examination: Comments: Measurements: Right Calf: 57 cm Right Ankle: 37 cm Left Calf: 50.5 cm Left Ankle: 33.5 cm Neuro: Alert AND oriented x3, ENGINE RESEARCH ENGINEER II-XII grossly intact, reflexes 2+ and symmetric, [...] No acute fracture or bony destruction. ? Credit Professional: DWIGHT ? Transcribe Date/Time: Oct 14 2017 [...] No acute fracture or bony destruction. ? Credit Professional: PSCB ? Transcribe Date/Time: Oct 14 2017 [...] and Edge attached to base Periwound Tissue: [place], dry and intact, No fluctuance, induration or [...] and Edge attached to base Periwound Tissue: [place], dry and intact, No fluctuance, induration or [...] -- Week 5 Wound Bed (Post-debridement): 100% [place] % of Healthy tissue: Undermining: No Tunneling: No Tendon/bone exposed: NO Wound Edge/Margins: Well-defined wound edges and Edge attached to base Periwound Tissue: [place], dry and intact, No fluctuance, induration or [...] Systemis Rx: Begin: Doxycycline to prevent reoccurant [id number] mg PO BID x 14 days then [...] sooner with any concerns or worsening symptoms. Lusi Simons CNP Charge Capture: [id number] CNOV Observed: 03/08/2018 Status: COMPLETED Source: [place] 2:00 PM [facility] OTHER [facility]AMP[facility] REPOSITORY Office Visit (PLWDMR) ROSA BELTRAN ([id number]) 1935 F Date Time Provider Department 03/08/18 2:00 PM LUIS SIMONS, (LINOTYPER) PLWDMR During your visit today, we recorded the following information about you: Temperature Pulse Respiration Blood pressure 98.2 degrees 73/minute 16/minute 137/62 uLis Simons APRN.CNP 03/20/2018 2:15 PM Signed DATE OF VISIT: 03/08/2018 REASON FOR VISIT: Non-healing lower extremity wound. HISTORY OF PRESENT ILLNESS: Rosa Beltran is a 81 year old female who presents to the [facility] for further evaluation [...] followed by Dr. Jaskaran Chance at the [facility]. It was felt that her home support system was inadequate and that she may not have the resources in her home environment to appropriately care for her needs. In this regard, a social worker palliative care consultation had been recommended on several occassions, but patient apparently insisted on remaining in her home environment despite that there was thought that is may be less than optimal. The patient is here at the [facility] for a second opinion [...] hypothyroidism - Acute respiratory failure with hypoxia ([facility]) 09/30/2017 - Atrial fibrillation ([facility]) - CAD (coronary artery disease) Dr. Brenda [...] 10/08/2016 - COPD (chronic obstructive pulmonary disease) ([facility]) - Depressive disorder 12/29/2016 - Disruption of [...] tibia - TOTAL KNEE REPLACEMENT Right 2003 [facility] Gen. - TOTAL KNEE REPLACEMENT Left 2004 [facility] Gen. MEDICATIONS ergocalciferol, vitamin D2, [...] Rubor of Dependency: Negative (Y) Positive (N) [place] Examination: Comments: Measurements: Right Calf: 57 cm Right Ankle: 37 cm Left Calf: 50.5 cm Left Ankle: 33.5 cm Neuro: Alert AND oriented x3, ENGINE RESEARCH ENGINEER II-XII grossly intact, reflexes 2+ and symmetric, [...] No acute fracture or bony destruction. ? Credit Professional: DWIGHT ? Transcribe Date/Time: Oct 14 2017 [...] No acute fracture or bony destruction. ? Credit Professional: DWIGHT ? Transcribe Date/Time: Oct 14 2017 [...] and Edge attached to base Periwound Tissue: [place], dry and intact, No fluctuance, induration or [...] and Edge attached to base Periwound Tissue: [place], dry and intact, No fluctuance, induration or [...] -- Week 5 Wound Bed (Post-debridement): 100% [place] % of Healthy tissue: Undermining: No Tunneling: No Tendon/bone exposed: NO Wound Edge/Margins: Well-defined wound edges and Edge attached to base Periwound Tissue: [place], dry and intact, No fluctuance, induration or [...] Systemis Rx: Begin: Doxycycline to prevent reoccurant [id number] mg PO BID x 14 days then [...] worsening symptoms. Luis Simons CNP Charge Capture: [id number] Tiffanie Humphrey, RN, RN 03/08/2018 2:59 PM [...] following changes to the Wound Center at [phone] or go to the Emergency Department: ? [...] days off. Indefinitely Rx: Doxycycline Luis Simons LINOTYPER/mjl Referring Provider: MANI NEWMAN [[id number]] Allergies As of Date: 03/08/2018 (No Known [...] following changes to the Wound Center at [phone] or go to the Emergency Department: ? [...] days off. Indefinitely Rx: Doxycycline Luis Simons LINOTYPER/mjl Visit Notes: >> Tiffanie (Rn) ELENA Humphrey [...] METABOLIC PANL Collected: 03/06/2018 Status: F Source: [place] 4:07 PM [facility] [place] REPOSITORY TYPE CODE TESTS RESULT OUT OF REFERENCE UNITS RANGE LAB GLU 74-99 mg/dL High Glucose 106 Result Comment: The [place] Diabetes Association (ADA) provides guidance for cutoff [...] Standards of Medical Care in Diabetes 2016, [place] [employer] Association. Diabetes Care. 2016.39(Suppl 1). LAB [...] actual GFR. Performed By: #### BMP #### [facility] [employer] [address] [place], [place] [address] PROTIME Collected: 03/06/2018 Status: F Source: [place] 4:01 PM [facility] REPOSITORY TYPE CODE TESTS RESULT OUT OF RANGE REFERENCE UNITS LAB PSEC 9.7-13.0 sec High PT Sec 15.0 LAB INR 0.9-1.3 High PT INR 1.5 Result Comment: Vitamin K Antagonist (VKA) Therapeutic Range: INR 2 to 3 (Target INR of 2.5) Note: For patients treated with VKA drugs, such as warfarin, the [place] [employer]icians 2012 Guideline recommends [...] Chest 2012, 141:7S-47S Genevieve RA, et al. [facility] 2017, 70: 252-289 Performed By: #### PT #### [facility] [employer] [address] [place], [place] [address] PROGRESS Observed: 03/06/2018 Status: COMPLETED Source: [place] 2:50 PM [facility] REPOSITORY HNO ID: [id number] Author: Mani Newman Service: (none) Author Type: Physician Type: Progress Notes Filed: 03/06/2018 3:21 PM Note Text: This note was created using Cynnyriter. Subjective Rosa Beltran is a 82 year old female was here for follow up. She was admitted again 02/24-02/27 at [facility] for congestive heart failure, pneumonia, hyponatremia, atrial [...] MD CNOV Observed: 03/06/2018 Status: COMPLETED Source: [place] 2:20 PM [facility] REPOSITORY Office Visit (INTMWS) ROSA BELTRAN ([id number]) 1935 F Date Time Provider Department 03/06/18 [...] up. She was admitted again 02/24-02/27 at [facility] for congestive heart failure, pneumonia, hyponatremia, atrial fibrillation, COPD, CAD, venous stasis ulcer. Her medications were unchanged. Her chronic wounds were not better. Her dyspnea was better. She saw Dr. Gene for ENT evaluation and nothing specific was [...] list for changes. Referring Provider: MANI NEWMAN [[id number]] Allergies As of Date: 03/06/2018 (No Known [...] 03/06/18 BMP Collected: 02/27/2018 Status: F Source: [facility] 5:22 AM [facility] REPOSITORY TYPE CODE [...] Performed By: #### BMP, GFR, PRO #### [address] [address] .GFR Collected: 02/27/2018 Status: F Source: [facility] 5:22 AM [facility] REPOSITORY TYPE CODE TESTS RESULT OUT OF REFERENCE UNITS RANGE LAB GFRAA(LOINC ml/min/1.73 ) sqm GFR 44 [place] Result Comment: GFR Population mean for , [...] By: #### GRETCHEN, GFR, PRO #### [place] [address] [place], [place] [address] PRO Collected: 02/27/2018 Status: F Source: [place] 5:22 AM [facility] REPOSITORY TYPE CODE TESTS RESULT OUT OF [...] By: #### GRETCHEN, GFR, PRO #### [place] [address] [address] XR CHEST 2 VIEWS Observed: 02/26/2018 Status: F Source: [place] 10:16 AM [facility] REPOSITORY ORIGINAL XR CHEST 2 VIEWS CLINICAL [...] PM .GFR Collected: 02/26/2018 Status: F Source: [place] 8:35 AM [facility] REPOSITORY TYPE CODE TESTS RESULT OUT OF REFERENCE UNITS RANGE LAB GFRAA(LOINC ml/min/1.73 ) sqm GFR 45 [place] Result Comment: GFR Population mean for , [...] Performed By: #### GFR, PRO, BMP #### [address] [address] PRO Collected: 02/26/2018 Status: F Source: [facility] 8:35 AM [facility] REPOSITORY TYPE CODE TESTS [...] Performed By: #### GFR, PRO, BMP #### [address] [address] BMP Collected: 02/26/2018 Status: F Source: [facility] 8:35 AM [facility] [place] REPOSITORY TYPE CODE TESTS RESULT OUT OF [...] Performed By: #### GFR, PRO, BMP #### [address] [address] TROP Collected: 02/25/2018 Status: F Source: [place] 6:26 AM [facility] [place] REPOSITORY TYPE CODE TESTS RESULT OUT OF REFERENCE UNITS RANGE LAB TROP(LOINC) 0.00-0.30 ng/mL Troponin <0.30 Result Comment: Below measuring range >=0.30 Consistent with cardiac damage, increased clinical risk and possibility of myocardial infarction. Serial measurements, clinical history, appropriate symptoms and/or ECG changes may help assess possibility of MO. *Other non-acute coronary syndrome conditions such as CHF, myocarditis, pulmonary emboli, sepsis and cardiac surgery could result in myocardial damage and increased troponin levels. Performed By: #### TROP, CBC, ADIFF, ANEU, PRO, BMP, MG, GFR #### [address] [address] CBC Collected: 02/25/2018 Status: F Source: [place] 6:26 AM [facility] [place] REPOSITORY TYPE CODE TESTS RESULT OUT OF [...] ADIFF, ANEU, PRO, BMP, MG, GFR #### [address] [address] .AUTO DIFF Collected: 02/25/2018 Status: F Source: [facility] 6:26 AM [facility] REPOSITORY TYPE CODE [...] ADIFF, ANEU, PRO, BMP, MG, GFR #### [address] [address] .NEUABS Collected: 02/25/2018 Status: F Source: [facility] 6:26 AM [facility] [place] REPOSITORY TYPE CODE TESTS RESULT OUT OF REFERENCE UNITS RANGE LAB ANEU(LOINC) 2.85-6.16 10 3/mcL High Neutrophil, 10.50 Absolute Performed By: #### TROP, CBC, ADIFF, ANEU, PRO, BMP, MG, GFR #### [address] [address] PRO Collected: 02/25/2018 Status: F Source: [facility] 6:26 AM [facility] [place] REPOSITORY TYPE CODE TESTS RESULT OUT OF [...] ADIFF, ANEU, PRO, BMP, MG, GFR #### [address] [address] BMP Collected: 02/25/2018 Status: F Source: [facility] 6:26 AM [facility] [place] REPOSITORY TYPE CODE TESTS RESULT OUT OF [...] ANEU, PRO, BMP, MG, GFR #### [place] [address] [place], [place] [address] MG Collected: 02/25/2018 Status: F Source: [facility] 6:26 AM [facility] [place] REPOSITORY TYPE CODE TESTS RESULT OUT OF REFERENCE UNITS RANGE LAB MG(LOINC) 1.7-2.5 mg/dL Magnesium Lvl 1.7 Performed By: #### TROP, CBC, ADIFF, ANEU, PRO, BMP, MG, GFR #### [place] [address] [place], [place] [address] .GFR Collected: 02/25/2018 Status: F Source: [facility] 6:26 AM [facility] [place] REPOSITORY TYPE CODE TESTS RESULT OUT OF REFERENCE UNITS RANGE LAB GFRAA(LOINC ml/min/1.73 ) sqm GFR 52 [place] Result Comment: GFR Population mean for , [...] ADIFF, ANEU, PRO, BMP, MG, GFR #### [place] [address] [place], [place] [address] UA Collected: 02/24/2018 Status: F Source: [facility] 6:42 PM [facility] [place] REPOSITORY TYPE CODE TESTS RESULT OUT OF [...] NEGATIVE Performed By: #### UA, UAMICAO #### [address] [address] .URINALYSIS MICROSCOPIC Collected: 02/24/2018 Status: F Source: [place] () 6:42 PM [facility] REPOSITORY TYPE CODE TESTS RESULT OUT OF RANGE REFERENCE UNITS LAB WBCUA(LOIN None Seen /hpf C) UA WBC None Seen LAB RBCUA(LOIN None Seen /hpf C) UA RBC None Seen LAB EPIUA(LOIN None Seen /hpf C) UA Squam Epithelial None Seen LAB TEPUA(LOIN /hpf C) UA Unknown Transitional 0-5 Epithelial Performed By: #### UA, UAMICAO #### [address] [address] Observed: 02/24/2018 Status: F Source: [facility] 6:42 PM [facility] [place] REPOSITORY . MICRO - Microbiology PROCEDURE: Urine [...] Locations *1: This test was performed at: [facility], [address] [place] [address], [address] Performed By: #### CUR #### [address] [address] ABG Collected: 02/24/2018 Status: F Source: [facility] 6:40 PM [facility] [place] REPOSITORY Order Comment: On room air TYPE [...] Sat 99 Performed By: #### ABG #### [facility] [address] [place], [place] [address] XR CHEST 1 VIEW Observed: 02/24/2018 Status: F Source: [facility] 6:34 PM [facility] [place] REPOSITORY ORIGINAL XR CHEST 1 VIEW CLINICAL [...] PM LAC Collected: 02/24/2018 Status: F Source: [facility] 6:10 PM [facility] [place] REPOSITORY TYPE CODE TESTS RESULT OUT OF REFERENCE UNITS RANGE LAB LAC(LOINC) 0.5-2.2 mmol/L Lactic Acid 1.9 Lvl Performed By: #### PRO, LAC #### [address] [address] Observed: 02/24/2018 Status: F Source: [facility] 6:10 PM [facility] [place] REPOSITORY . MICRO - Microbiology PROCEDURE: Blood [...] Locations *1: This test was performed at: [facility], [address] [place] [address], [facility] Performed By: #### CBL #### [address] [address] CBC Collected: 02/24/2018 Status: F Source: [facility] 6:03 PM [facility] [place] REPOSITORY TYPE CODE TESTS RESULT OUT OF [...] TROP, CMP, GFR, PBNP, ADIFF, ANEU #### [address] [address] TROP Collected: 02/24/2018 Status: F Source: [facility] 6:03 [facility] [place] REPOSITORY TYPE CODE TESTS RESULT OUT OF REFERENCE UNITS RANGE LAB TROP(LOINC) 0.00-0.30 ng/mL Troponin <0.30 Result Comment: Below measuring range >=0.30 Consistent with cardiac damage, increased clinical risk and possibility of myocardial infarction. Serial measurements, clinical history, appropriate symptoms and/or ECG changes may help assess possibility of MO. *Other non-acute coronary syndrome conditions such as CHF, myocarditis, pulmonary emboli, sepsis and cardiac surgery could result in myocardial damage and increased troponin levels. Performed By: #### CBC, TROP, CMP, GFR, PBNP, ADIFF, ANEU #### [address] [address] CMP Collected: 02/24/2018 Status: F Source: [facility] 6:03 [facility] [place] REPOSITORY TYPE CODE TESTS RESULT OUT OF [...] TROP, CMP, GFR, PBNP, ADIFF, ANEU #### [address] [address] .GFR Collected: 02/24/2018 Status: F Source: [facility] 6:03 PM [facility] REPOSITORY TYPE CODE TESTS RESULT OUT OF REFERENCE UNITS RANGE LAB GFRAA(LOINC ml/min/1.73 ) sqm GFR 83 [place] Result Comment: GFR Population mean for , [...] TROP, CMP, GFR, PBNP, ADIFF, ANEU #### [address] [address] PBNP Collected: 02/24/2018 Status: F Source: [facility] 6:03 [facility] [place] REPOSITORY TYPE CODE TESTS RESULT OUT OF REFERENCE UNITS RANGE LAB PBNP(LOINC) 5.0-300.0 pg/mL High N-Terminal 5465.0 proBNP Result Comment: In the presence of acute dyspnea, CHF likely if: Age <50 years: >450 pg/mL Age 50-75 years: >900 pg/mL Age >75 years: >1800 pg/mL Performed By: #### CBC, TROP, CMP, GFR, PBNP, ADIFF, ANEU #### [address] [address] .AUTO DIFF Collected: 02/24/2018 Status: F Source: [facility] 6:03 [facility] [place] REPOSITORY TYPE CODE TESTS RESULT OUT OF [...] TROP, CMP, GFR, PBNP, ADIFF, ANEU #### [address] [address] .NEUABS Collected: 02/24/2018 Status: F Source: [facility] 6:03 [facility] [place] REPOSITORY TYPE CODE TESTS RESULT OUT OF REFERENCE UNITS RANGE LAB ANEU(LOINC) 2.85-6.16 10 3/mcL High Neutrophil, 18.90 Absolute Performed By: #### CBC, TROP, CMP, GFR, PBNP, ADIFF, ANEU #### [address] [address] PRO Collected: 02/24/2018 Status: F Source: [facility] 6:03 [facility] [place] REPOSITORY TYPE CODE TESTS RESULT OUT OF [...] 3.5 Performed By: #### PRO, LAC #### [address] [address] Observed: 02/24/2018 Status: F Source: [facility] 6:03 [facility] [place] REPOSITORY . MICRO - Microbiology PROCEDURE: Rapid [...] Locations *1: This test was performed at: [address] Performed By: #### RFLU #### [place] [address] Observed: 02/24/2018 Status: F Source: [facility] 6:03 PM [facility] REPOSITORY . MICRO - [...] Locations *1: This test was performed at: [address], [address] [place] [address] Performed By: #### CBL #### [place] [address] RESPID Collected: 02/24/2018 Status: F Source: [facility] 5:52 PM [facility] REPOSITORY Order Comment: Order added by [id number] TYPE CODE TESTS RESULT OUT OF REFERENCE UNITS RANGE LAB RESADENO( Not Detected LOINC) Adenovirus Not Detected LAB COVHKU1(L Not Detected OINC) Coronavirus HKU1 Not Detected LAB COVNL63(L Not Detected OINC) Coronavirus NL63 Not Detected LAB CuP645I(L Not Detected OINC) Coronavirus 229E Not Detected [...] Not Detected Performed By: #### RESPID #### [place] [address] PROGRESS Observed: 02/17/2018 Status: COMPLETED Source: [place] 12:30 PM [facility] REPOSITORY HNO ID: [id number] Author: Ty Mills Service: (none) Author Type: [...] record. CNOV Observed: 02/17/2018 Status: COMPLETED Source: [place] 11:45 AM [facility] REPOSITORY Office Visit (OTOLMM) ROSA BELTRAN ([id number]) 1935 F Date Time Provider Department 02/17/18 [...] electronic medical record. Referring Provider: MANI NEWMAN [[id number]] Allergies As of Date: 02/17/2018 (No Known [...] 02/17/18 PROGRESS Observed: 02/14/2018 Status: COMPLETED Source: [place] 3:47 PM [facility] REPOSITORY HNO ID: [id number] Author: Chintan Dempsey DPM Service: (none) Author [...] MG (01/02/2018) Vitamin D (Ergocalciferol) Oral Capsule 81354 UNIT (12/24/2017) Spironolactone Oral Tablet 25 MG [...] I83.019 CNOV Observed: 02/14/2018 Status: COMPLETED Source: [place] 8:00 AM [facility] REPOSITORY Office Visit (PLWDMR) ROSA BELTRAN ([id number]) 1935 F Date Time Provider Department 02/14/18 [...] will contact her. Patient instructions faxed to [facility] EDUCATION PER PROVIDER: The patient/family was instructed [...] following changes to the Wound Center at [phone] or go to the Emergency Department: ? [...] MG (01/02/2018) Vitamin D (Ergocalciferol) Oral Capsule 89193 UNIT (12/24/2017) Spironolactone Oral Tablet 25 MG [...] extremity 454.0 I83.019 Referring Provider: LUIS SIMONS, ([facility]) [[id number]] Allergies As of Date: 02/14/2018 (No Known [...] [L97.919, L97.929] INVALID FOR* Priority: E Polyneuropathy ([facility]) [G62.9] INVALID FOR* Cecal ulcer [K63.3] INVALID FOR* Acute respiratory failure with hypoxia ([facility]) [J*INVALID FOR*10/10/2017 Priority: Severe More... More... More... Respiratory failure with hypoxia ([facility]) [J96.91] INVALID FOR* Priority: Severe Heart failure [...] following changes to the Wound Center at [phone] or go to the Emergency Department: ? [...] Dr. Dempsey/kgr Visit Notes: >> Tracy (Tory) EileenTORY Josephine Feb 14, 2018 8:19 AM Status: [...] calf: Remains closed. 4. Right anterior distal cae: L: 1.0 cm x W: 1.0 cm [...] 02/14/18 WOUND Observed: 02/10/2018 Status: F Source: [place] CULTURE/STAIN 1:30 PM [facility] REPOSITORY Sp. Request/Comment: - Swab Smear Result [...] <=0.5 F Performed By: #### WCUL #### [facility] [address] [place] [place] [id number] PROGRESS Observed: 02/10/2018 Status: COMPLETED Source: [place] 1:00 PM [facility] REPOSITORY HNO ID: [id number] Author: Luis Simons Service: (none) Author Type: Nurse Practitioner Type: Progress Notes Filed: 05/01/2018 3:16 PM Note Text: DATE OF VISIT: 02/10/2018 REASON FOR VISIT: Non-healing lower extremity wound. HISTORY OF PRESENT ILLNESS: Rosa Beltran is a 81 year old female who presents to the [facility] for further evaluation [...] followed by Dr. Jaskaran Chance at the [facility]. It was felt that her home support system was inadequate and that she may not have the resources in her home environment to appropriately care for her needs. In this regard, a social worker palliative care consultation had been recommended on several occassions, but patient apparently insisted on remaining in her home environment despite that there was thought that is may be less than optimal. The patient is here at the [facility] for a second opinion [...] 10/08/2016 - COPD (chronic obstructive pulmonary disease) ([facility]) - Depressive disorder 12/29/2016 - Disruption of surgical wound 09/2015 Right tibia - Dorsalgia 12/29/2016 - Dyslipidemia - Gastric bypass status for obesity 12/29/2016 - Gastroesophageal reflux disease without esophagitis 10/08/2016 - HTN (hypertension) - Muscular weakness 12/29/2016 - Primary osteoarthritis involving multiple joints 12/29/2016 - Pure hypercholesterolemia - Rheumatoid arthritis ([facility]) 2007 - Sleep apnea - Stented coronary artery 12/29/2016 PAST SURGICAL HISTORY Procedure Laterality Date - CC CORONARY STENT 11/20/2012 KIMMY LAD - CC CORONARY STENT 12/20/2014 KIMMY, Cfx - SECTION HX - COLONOSCOPY 06/10/2017 [facility], Nonspecific cecal ulcer - GASTRIC BYPASS HX 1986 - HERNIA REPAIR HX 1987; 1989 - PAST SURGICAL HISTORY OF Right 09/2015 right tibia fracture ORIF - PAST SURGICAL HISTORY OF Right 01/20/2016 Removal of hardware, right tibia - TOTAL KNEE REPLACEMENT Right 2003 [facility] Gen. - TOTAL KNEE REPLACEMENT Left 2004 [facility] Gen. MEDICATIONS ergocalciferol, vitamin D2, [...] Rubor of Dependency: Negative (Y) Positive (N) [place] Examination: Comments: Measurements: Right Calf: 54.5 cm Right Ankle: 32.5 cm Left Calf: 39.5 cm Left Ankle: 31.3 cm Neuro: Alert AND oriented x3, ENGINE RESEARCH ENGINEER II-XII grossly intact, reflexes 2+ and symmetric, [...] No acute fracture or bony destruction. ? Credit Professional: DWIGHT ? Transcribe Date/Time: Oct 14 2017 [...] No acute fracture or bony destruction. ? Credit Professional: DWIGHT ? Transcribe Date/Time: Oct 14 2017 [...] -- Week 5 Wound Bed (Post-debridement): 100% [place] % of Healthy tissue: Undermining: No Tunneling: No Tendon/bone exposed: NO Wound Edge/Margins: Well-defined wound edges and Edge attached to base Periwound Tissue: [place], dry and intact, No fluctuance, induration or [...] 15 -- 33.3! Wound Bed (Post-debridement): 100% [place] % of Healthy tissue: Undermining: No Tunneling: No Tendon/bone exposed: NO Wound Edge/Margins: Well-defined wound edges and Edge attached to base Periwound Tissue: [place], dry and intact, No fluctuance, induration or [...] worsening symptoms. Luis Simons CNP Charge Capture: [id number]; [id number] CNOV Observed: 02/10/2018 Status: COMPLETED Source: [place] 1:00 PM [facility] REPOSITORY Office Visit (PLWDMR) ROSA BELTRAN ([id number]) 1935 F Date Time Provider Department 02/10/18 1:00 PM LUIS SIMONS, (LOI) PLWDMR During your visit today, we recorded the following information about you: Luis Simons APRN.CNP 05/01/2018 3:16 PM Addendum DATE OF VISIT: 02/10/2018 REASON FOR VISIT: Non-healing lower extremity wound. HISTORY OF PRESENT ILLNESS: Rosa Beltran is a 81 year old female who presents to the [facility] for further evaluation [...] followed by Dr. Jaskaran Chance at the [facility]. It was felt that her home support system was inadequate and that she may not have the resources in her home environment to appropriately care for her needs. In this regard, a social worker palliative care consultation had been recommended on several occassions, but patient apparently insisted on remaining in her home environment despite that there was thought that is may be less than optimal. The patient is here at the [facility] for a second opinion [...] 10/08/2016 - COPD (chronic obstructive pulmonary disease) ([facility]) - Depressive disorder 12/29/2016 - Disruption of surgical wound 09/2015 Right tibia - Dorsalgia 12/29/2016 - Dyslipidemia - Gastric bypass status for obesity 12/29/2016 - Gastroesophageal reflux disease without esophagitis 10/08/2016 - HTN (hypertension) - Muscular weakness 12/29/2016 - Primary osteoarthritis involving multiple joints 12/29/2016 - Pure hypercholesterolemia - Rheumatoid arthritis ([facility]) 2007 - Sleep apnea - Stented coronary artery 12/29/2016 PAST SURGICAL HISTORY Procedure Laterality Date - CC CORONARY STENT 11/20/2012 KIMMY LAD - CC CORONARY STENT 12/20/2014 KIMMY, Cfx - SECTION HX - COLONOSCOPY 06/10/2017 [facility], Nonspecific cecal ulcer - GASTRIC BYPASS HX 1986 - HERNIA REPAIR HX 1987; 1989 - PAST SURGICAL HISTORY OF Right 09/2015 right tibia fracture ORIF - PAST SURGICAL HISTORY OF Right 01/20/2016 Removal of hardware, right tibia - TOTAL KNEE REPLACEMENT Right 2003 [facility] Gen. - TOTAL KNEE REPLACEMENT Left 2004 [facility] Gen. MEDICATIONS ergocalciferol, vitamin D2, [...] Rubor of Dependency: Negative (Y) Positive (N) [place] Examination: Comments: Measurements: Right Calf: 54.5 cm Right Ankle: 32.5 cm Left Calf: 39.5 cm Left Ankle: 31.3 cm Neuro: Alert AND oriented x3, ENGINE RESEARCH ENGINEER II-XII grossly intact, reflexes 2+ and symmetric, [...] No acute fracture or bony destruction. ? Credit Professional: DWIGHT ? Transcribe Date/Time: Oct 14 2017 [...] No acute fracture or bony destruction. ? Credit Professional: DWIGHT ? Transcribe Date/Time: Oct 14 2017 [...] -- Week 5 Wound Bed (Post-debridement): 100% [place] % of Healthy tissue: Undermining: No Tunneling: No Tendon/bone exposed: NO Wound Edge/Margins: Well-defined wound edges and Edge attached to base Periwound Tissue: [place], dry and intact, No fluctuance, induration or [...] 15 -- 33.3! Wound Bed (Post-debridement): 100% [place] % of Healthy tissue: Undermining: No Tunneling: No Tendon/bone exposed: NO Wound Edge/Margins: Well-defined wound edges and Edge attached to base Periwound Tissue: [place], dry and intact, No fluctuance, induration or [...] worsening symptoms. Luis Simons CNP Charge Capture: [id number]; [id number] Luis Simons APRN.LOI 05/01/2018 3:18 PM Addendum [...] saline and dressings were applied. Charge Capture: [id number]; [id number] Tiffanie Humphrey, RN, RN 02/10/2018 1:54 PM [...] wound care Schedule an appointment with Dr. Dempsye for 02/14/18 EDUCATION: The patient/family was instructed [...] following changes to the Wound Center at [phone] or go to the Emergency Department: ? [...] with Dr. Dempsey for 02/14/18 Rx: Dakins fredi Simons CNP/mjl Referring Provider: SELF [[id number]] Allergies [...] CULTURE AND GRAM STAIN [SQWCUL] Order #: [id number]. #:[id number] Prescriptions as of 02/10/2018 Sig: X METOLAZONE [...] following changes to the Wound Center at [phone] or go to the Emergency Department: ? [...] 02/20/18 PROCEDURE Observed: 02/10/2018 Status: COMPLETED Source: [place] 1:00 PM [facility] OTHER [facility] REPOSITORY HNO ID: [id number] Author: Luis Simons Service: (none) Author Type: [...] saline and dressings were applied. Charge Capture: [id number]; [id number] PROTIME Collected: 02/07/2018 Status: F Source: [place] 1:30 PM [facility] REPOSITORY TYPE CODE TESTS RESULT OUT OF RANGE REFERENCE UNITS LAB PSEC 9.7-13.0 sec High PT Sec 14.1 LAB INR 0.9-1.3 High PT INR 1.4 Result Comment: Vitamin K Antagonist (VKA) Therapeutic Range: INR 2 to 3 (Target INR of 2.5) Note: For patients treated with VKA drugs, such as warfarin, the [place] [employer]icians 2012 Guideline recommends [...] Chest 2012, 141:7S-47S Genevieve RA et al. [facility] 2017, 70: 252-289 Performed By: #### PT, BMP #### [facility] [address] [place] [address] BASIC METABOLIC PANL Collected: 02/07/2018 Status: F Source: [place] 1:30 PM [facility] REPOSITORY TYPE CODE TESTS RESULT OUT OF REFERENCE UNITS RANGE LAB GLU 74-99 mg/dL Glucose 92 Result Comment: The [place] Diabetes Association (ADA) provides guidance for cutoff [...] Standards of Medical Care in Diabetes 2016, [place] Diabetes Association. Diabetes Care. 2016.39(Suppl 1). LAB [...] GFR. Performed By: #### PT, BMP #### [facility] [address] [place] [id number] PROGRESS Observed: 02/07/2018 Status: COMPLETED Source: [place] 12:43 PM [facility] REPOSITORY HNO ID: [id number] Author: Corey Mckeon Service: (none) Author Type: [...] met Beta louann for ASHD with prior MO or prior LVEF<40 (NQF 0070) - met [...] OSEI MckennaOV Observed: 02/07/2018 Status: COMPLETED Source: [place] 11:30 AM [facility] REPOSITORY Office Visit (AGCARDWST) ROSA BELTRAN ([id number]) 1935 F Date Time Provider Department 02/07/18 [...] met Beta louann for ASHD with prior MO or prior LVEFANDlt;40 (NQF 0070) - met [...] Mani Newman MD Referring Provider: COREY MCKEON [[id number]] Allergies As of Date: 02/07/2018 (No Known Allergies) Date Reviewed: 02/03/2018 Reviewed by: Carolina Vega [facility] - Fully Assessed Reason for Visit: Established Patient [175] Cmt: Hospital follow-up Primary Visit Diagnosis:ASHD (arteriosclerotic heart disease) [I25.10] Other Visit Diagnosis:Chronic diastolic CHF (congestive heart failure) (HCC) [I50.32] Order(s):BASIC METABOLIC PNL [SQBMP] Order #: [id number] FUTURE Prescriptions as of 02/07/2018 Sig: METOLAZONE [...] 02/07/18 PROGRESS Observed: 02/03/2018 Status: COMPLETED Source: [place] 11:31 AM [facility] REPOSITORY HNO ID: [id number] Author: Jina Rodriguez) Older Service: (none) Author Type: Nurse Practitioner Type: Progress Notes Filed: 02/03/2018 1:36 PM Note Text: CC: Patient presents with: [facility] Follow up HPI Rosa Beltran is a 82 year old female who presents today for hospital follow-up. Reason for visit: 10 lb weight gain and SOB Which facility: [facility] Date of visit: 01/25/18 to 01/27/18 Diagnosis: [...] with hypoxia (HCC) 09/30/2017 - Atrial fibrillation ([facility]) - CAD (coronary artery disease) Dr. Brenda [...] 10/08/2016 - COPD (chronic obstructive pulmonary disease) ([facility]) - Depressive disorder 12/29/2016 - Disruption of surgical wound 09/2015 Right tibia - Dorsalgia 12/29/2016 - Dyslipidemia - Gastric bypass status for obesity 12/29/2016 - Gastroesophageal reflux disease without esophagitis 10/08/2016 - HTN (hypertension) - Muscular weakness 12/29/2016 - Primary osteoarthritis involving multiple joints 12/29/2016 - Pure hypercholesterolemia - Rheumatoid arthritis ([facility]) 2007 - Sleep apnea - Stented coronary artery 12/29/2016 PAST SURGICAL HISTORY Procedure Laterality Date - CC CORONARY STENT 11/20/2012 KIMMY LAD - CC CORONARY STENT 12/20/2014 KIMMY, Cfx - SECTION HX - COLONOSCOPY 06/10/2017 [facility], Nonspecific cecal ulcer - GASTRIC BYPASS HX 1986 - HERNIA REPAIR HX 1987; 1989 - PAST SURGICAL HISTORY OF Right 09/2015 right tibia fracture ORIF - PAST SURGICAL HISTORY OF Right 01/20/2016 Removal of hardware, right tibia - TOTAL KNEE REPLACEMENT Right 2003 [facility] Gen. - TOTAL KNEE REPLACEMENT Left 2004 [facility] Gen. ALLERGIES Review of patient's [...] Patient agreeable to treatment plan. Jina Ny APRN.OLI FRANZOV Observed: 02/03/2018 Status: COMPLETED Source: [place] 11:20 AM [facility] REPOSITORY Office Visit (INTMWS) ROSA BELTRAN ([id number]) 1935 F Date Time Provider Department 02/03/18 11:20 AM JINA NY (LOI) INTMWS During your visit today, we recorded the following information about you: Temperature Pulse Respiration Blood pressure 97.9 degrees 75/minute 20/minute 142/72 Weight 95.7 kg Jina Ny QA ARCHITECT.LINOTYPER 02/03/2018 1:36 PM Signed CC: Patient presents with: [facility] Follow up HPI Rosa Beltran is a 82 year old female who presents today for hospital follow-up. Reason for visit: 10 lb weight gain and SOB Which facility: [facility] Date of visit: 01/25/18 to 01/27/18 Diagnosis: [...] with hypoxia (HCC) 09/30/2017 - Atrial fibrillation ([facility]) - CAD (coronary artery disease) Dr. Brenda [...] 10/08/2016 - COPD (chronic obstructive pulmonary disease) ([facility]) - Depressive disorder 12/29/2016 - Disruption of surgical wound 09/2015 Right tibia - Dorsalgia 12/29/2016 - Dyslipidemia - Gastric bypass status for obesity 12/29/2016 - Gastroesophageal reflux disease without esophagitis 10/08/2016 - HTN (hypertension) - Muscular weakness 12/29/2016 - Primary osteoarthritis involving multiple joints 12/29/2016 - Pure hypercholesterolemia - Rheumatoid arthritis ([facility]) 2007 - Sleep apnea - Stented coronary artery 12/29/2016 PAST SURGICAL HISTORY Procedure Laterality Date - CC CORONARY STENT 11/20/2012 KIMMY LAD - CC CORONARY STENT 12/20/2014 KIMMY, Cfx - SECTION HX - COLONOSCOPY 06/10/2017 [facility], Nonspecific cecal ulcer - GASTRIC BYPASS HX 1987 - HERNIA REPAIR HX 1988; 1990 - PAST SURGICAL HISTORY OF Right 09/2015 right tibia fracture ORIF - PAST SURGICAL HISTORY OF Right 01/20/2016 Removal of hardware, right tibia - TOTAL KNEE REPLACEMENT Right 2003 [facility] Gen. - TOTAL KNEE REPLACEMENT Left 2004 [facility] Gen. ALLERGIES Review of patient's [...] Mckeon would like to see you next [place], late morning. They will call you to schedule appointment Increase Metolazone (Zaroxolyn) to 5 mg daily ( take two of the 2.5 mg tabs), continue with this until you see Dr. Mckeon Go to ER if your symptoms worsen Referring Provider: SELF [200] Allergies As of Date: 02/03/2018 (No Known Allergies) Date Reviewed: 02/03/2018 Reviewed by: Carolina Vega Technology Professional - Fully Assessed Reason for Visit: [facility] Follow up [Other] Primary Visit Diagnosis:Acute on [...] 02/03/18 PROGRESS Observed: 01/28/2018 Status: COMPLETED Source: [place] 9:05 AM [facility] REPOSITORY HNO ID: [id number] Author: Mani Newman Service: (none) Author Type: Physician Type: Progress Notes Filed: 01/28/2018 9:08 AM Note Text: Addendum: It seems patient had not filled furosemide at [facility] since April 2017. Medication adherence needs monitored. Noted patient was referred to ER last week. Mani Newman MD BMP Collected: 01/27/2018 Status: F Source: [facility] 5:21 AM [facility] REPOSITORY TYPE CODE TESTS RESULT OUT OF [...] 8.3 Performed By: #### BMP, GFR #### [place] [address] .GFR Collected: 01/27/2018 Status: F Source: [facility] [place] 5:21 AM [facility] REPOSITORY TYPE CODE TESTS RESULT OUT OF REFERENCE UNITS RANGE LAB GFRAA(LOINC ml/min/1.73 ) sqm GFR 53 [place] Result Comment: GFR Population mean for , [...] meters Performed By: #### BMP, GFR #### [address] [place], [place] [address] PRO Collected: 01/26/2018 Status: F Source: JERMAINE Zaranga 3:44 PM [facility] [place] REPOSITORY TYPE CODE TESTS RESULT OUT OF [...] - 3.5 Performed By: #### PRO #### [address] [address] .GFR Collected: 01/26/2018 Status: F Source: twiDAQ 5:04 AM [facility] [place] REPOSITORY TYPE CODE TESTS RESULT OUT OF REFERENCE UNITS RANGE LAB GFRAA(LOINC ml/min/1.73 ) sqm GFR 61 [place] Result Comment: GFR Population mean for , [...] meters Performed By: #### GFR, GRETCHEN #### [address] [address] BMP Collected: 01/26/2018 Status: F Source: twiDAQ 5:04 AM [facility] [place] REPOSITORY TYPE CODE TESTS RESULT OUT OF [...] 8.5 Performed By: #### GFR, GRETCHEN #### [address] [address] XR CHEST 2 VIEWS Observed: 01/25/2018 Status: F Source: twiDAQ 2:07 PM [facility] [place] REPOSITORY ORIGINAL XR CHEST 2 VIEWS CLINICAL [...] PM PRO Collected: 01/25/2018 Status: F Source: GLEN LYON Zaranga 1:58 PM [facility] [place] REPOSITORY TYPE CODE TESTS RESULT OUT OF [...] - 3.5 Performed By: #### PRO #### [address] [address] CBC Collected: 01/25/2018 Status: F Source: GLEN LYON Zaranga 1:53 PM [facility] [place] REPOSITORY TYPE CODE TESTS RESULT OUT OF [...] ADIFF, ANEU, TROP, GFR, PBNP, CMP #### [address] [address] .AUTO DIFF Collected: 01/25/2018 Status: F Source: [facility] 1:53 PM [facility] [place] REPOSITORY TYPE CODE TESTS RESULT OUT OF [...] ADIFF, ANEU, TROP, GFR, PBNP, CMP #### [address] [address] .NEUABS Collected: 01/25/2018 Status: F Source: [facility] 1:53 PM [facility] [place] REPOSITORY TYPE CODE TESTS RESULT OUT OF REFERENCE UNITS RANGE LAB ANEU(LOINC) 2.85-6.16 10 3/mcL Neutrophil, 4.00 Absolute Performed By: #### CBC, ADIFF, ANEU, TROP, GFR, PBNP, CMP #### [address] [address] TROP Collected: 01/25/2018 Status: F Source: [facility] 1:53 PM [facility] [place] REPOSITORY TYPE CODE TESTS RESULT OUT OF REFERENCE UNITS RANGE LAB TROP(LOINC) 0.00-0.30 ng/mL Troponin <0.30 Result Comment: Below measuring range >=0.30 Consistent with cardiac damage, increased clinical risk and possibility of myocardial infarction. Serial measurements, clinical history, appropriate symptoms and/or ECG changes may help assess possibility of MO. *Other non-acute coronary syndrome conditions such as CHF, myocarditis, pulmonary emboli, sepsis and cardiac surgery could result in myocardial damage and increased troponin levels. Performed By: #### CBC, ADIFF, ANEU, TROP, GFR, PBNP, CMP #### [address] [place], [place] [address] .GFR Collected: 01/25/2018 Status: F Source: twiDAQ 1:53 PM [facility] REPOSITORY TYPE CODE TESTS RESULT OUT OF REFERENCE UNITS RANGE LAB GFRAA(LOINC ml/min/1.73 ) sqm GFR 79 [place] Result Comment: GFR Population mean for , [...] ADIFF, ANEU, TROP, GFR, PBNP, CMP #### [facility] [address] [place], [place] [address] PBNP Collected: 01/25/2018 Status: F Source: [facility] 1:53 PM [facility] REPOSITORY TYPE CODE TESTS RESULT OUT OF REFERENCE UNITS RANGE LAB PBNP(LOINC) 5.0-300.0 pg/mL High N-Terminal 3221.0 proBNP Result Comment: In the presence of acute dyspnea, CHF likely if: Age <50 years: >450 pg/mL Age 50-75 years: >900 pg/mL Age >75 years: >1800 pg/mL Performed By: #### CBC, ADIFF, ANEU, TROP, GFR, PBNP, CMP #### [address] [place], [place] [address] CMP Collected: 01/25/2018 Status: F Source: [facility] 1:53 PM [facility] [place] REPOSITORY TYPE CODE TESTS RESULT OUT OF [...] ANEU, TROP, GFR, PBNP, CMP #### [address] [place], [place] [address] PROGRESS Observed: 01/20/2018 Status: COMPLETED Source: [place] 12:19 PM [facility] REPOSITORY HNO ID: [id number] Author: Mani Newman Service: (none) Author Type: Physician Type: Progress Notes Filed: 01/26/2018 8:17 AM Note Text: This note was created using Cynnyriter. Subjective Rosa Beltran is a 82 year [...] Anticoagulation monitored. 9. Coronary artery disease involving ekuk heart without angina pectoris, unspecified vessel or [...] MD CNOV Observed: 01/20/2018 Status: COMPLETED Source: [place] 11:40 AM [facility] REPOSITORY Office Visit (INTMWS) ROSA BELTRAN ([id number]) 1935 F Date Time Provider Department 01/20/18 11:40 AM MANI NEWMAN INTSimoneWS During your visit today, we recorded the following information about you: Pulse Respiration Blood pressure 76/minute 18/minute 144/86 Mani Newman MD 01/26/2018 8:17 AM Signed This note was created using Cynnyriter. Subjective Rosa Beltran is a 82 year [...] all her medications. Request medication profile from [facility]. 6. Lymphedema of both lower extremities - ICD9: 457.1, ICD10: I89.0 See #5. 7. Essential hypertension - ICD9: 401.9, ICD10: I10 - fair control - Continue current medication(s) - Verify medications. 8. Chronic atrial fibrillation (HCC) - ICD9: 427.31, ICD10: I48.2 Anticoagulation monitored. 9. Coronary artery disease involving ekuk heart without angina pectoris, unspecified vessel or [...] seems patient had not filled furosemide at [facility] since April 2017. Medication adherence needs monitored. [...] fibrillation (HCC) [I48.2] Coronary artery disease involving ekuk heart without angina pectoris, unspecified vessel or lesion type [I25.10] Physical debility [R53.81] Adjustment disorder with depressed mood [F43.21] Acquired hypothyroidism [E03.9] Ulcers of both lower extremities, unspecified ulcer stage (HCC) [L97.919, L97.929] Order(s):CONSULT TO ENT [1155] Order #: [id number]: 1 Prescriptions as of 01/20/2018 Sig: SPIRONOLACTONE [...] FIBULA 2V Observed: 01/13/2018 Status: F Source: [place] AP/LAT RT 1:08 PM [facility] OTHER [facility] [...] lower leg. IMPRESSION: No significant interval change. Credit Professional: DWIGHT Transcribe Date/Time: Jan 13 2018 4:29P Dictated by : HAO YORK DO This examination was interpreted and the report reviewed and electronically signed by: HAO YORK DO on Jan 13 2018 4:31PM EST [id number] BASIC METABOLIC PANL Collected: 01/13/2018 Status: F Source: [place] 12:00 PM [facility] REPOSITORY TYPE CODE TESTS RESULT OUT OF REFERENCE UNITS RANGE LAB GLU 74-99 mg/dL High Glucose 108 Result Comment: The [place] Diabetes Association (ADA) provides guidance for cutoff [...] Standards of Medical Care in Diabetes 2016, [place] Diabetes Association. Diabetes Care. 2016.39(Suppl 1). LAB [...] actual GFR. Performed By: #### BMP #### [facility] [employer] [address] [place], [place] [address] PREALBUMIN Collected: 01/13/2018 Status: F Source: [place] 12:00 PM [facility] REPOSITORY TYPE CODE TESTS RESULT OUT OF REFERENCE UNITS RANGE LAB PREALB 17-36 mg/dL Low Prealbumin 16 Performed By: #### PREALB #### [facility] [employer] [address] [place], [place] [address] WOUND Observed: 01/13/2018 Status: F Source: [place] CULTURE/STAIN 11:30 AM [facility] REPOSITORY Smear Result - [...] <=0.5 F Performed By: #### WCUL #### [address] [address] Observed: 01/13/2018 Status: F Source: [place] ANAEROBE CULTURE 11:30 AM [facility] REPOSITORY Culture Result - Negative for anaerobes. Performed By: #### ANACUL #### [address] [address] Observed: 01/13/2018 Status: F Source: [place] FUNGAL CULTURE 11:30 AM [facility] REPOSITORY Culture Result - No Fungus isolated after 32 days Performed By: #### FCUL #### [address] [address] PROGRESS Observed: 01/13/2018 Status: COMPLETED Source: [place] 11:00 AM [facility] REPOSITORY HNO ID: [id number] Author: Luis Simons ([facility]) Service: (none) Author Type: Nurse Practitioner Type: Progress Notes Filed: 03/09/2018 10:29 AM Note Text: DATE OF VISIT: 01/13/2018 REASON FOR VISIT: Non-healing lower extremity wound. HISTORY OF PRESENT ILLNESS: Rosa Beltran is a 81 year old female who presents to the [facility] for further evaluation [...] followed by Dr. Jaskaran Chance at the [facility]. It was felt that her home support system was inadequate and that she may not have the resources in her home environment to appropriately care for her needs. In this regard, a social worker palliative care consultation had been recommended on several occassions, but patient apparently insisted on remaining in her home environment despite that there was thought that is may be less than optimal. The patient is here at the [facility] for a second opinion [...] hypothyroidism - Acute respiratory failure with hypoxia ([facility]) 09/30/2017 - Atrial fibrillation ([facility]) - CAD (coronary artery disease) Dr. Brenda [...] 10/08/2016 - COPD (chronic obstructive pulmonary disease) ([facility]) - Depressive disorder 12/29/2016 - Disruption of [...] tibia - TOTAL KNEE REPLACEMENT Right 2003 [facility] Gen. - TOTAL KNEE REPLACEMENT Left 2004 [facility] Gen. MEDICATIONS ergocalciferol, vitamin D2, [...] Rubor of Dependency: Negative (Y) Positive (N) [place]-Weistein Examination: Comments: Measurements: Right Calf: 36.5 cm Right Ankle: 29 cm Left Calf: 37.5 cm Left Ankle: 24.2 cm Neuro: Alert AND oriented x3, ENGINE RESEARCH ENGINEER II-XII grossly intact, reflexes 2+ and symmetric, [...] No acute fracture or bony destruction. ? Credit Professional: DWIGHT ? Transcribe Date/Time: Oct 14 2017 [...] No acute fracture or bony destruction. ? Credit Professional: DWIGHT ? Transcribe Date/Time: Oct 14 2017 [...] -- Week 5 Wound Bed (Post-debridement): 100% [place] % of Healthy tissue: Undermining: No Tunneling: No Tendon/bone exposed: NO Wound Edge/Margins: Well-defined wound edges and Edge attached to base Periwound Tissue: [place], dry and intact, No fluctuance, induration or [...] worsening symptoms. Luis Simons CNP Charge Capture: [id number] CNOV Observed: 01/13/2018 Status: COMPLETED Source: [place] 11:00 AM [facility] REPOSITORY Office Visit (PLWDMR) ROSA BELTRAN ([id number]) 1935 F Date Time Provider Department 01/13/18 11:00 AM LUIS SIMONS (LOI) PLWDMR During your visit today, we recorded the following information about you: Luis Simons APRN.CNP 03/09/2018 10:29 AM Addendum DATE OF VISIT: 01/13/2018 REASON FOR VISIT: Non-healing lower extremity wound. HISTORY OF PRESENT ILLNESS: Rosa Beltran is a 81 year old female who presents to the [facility] for further evaluation [...] followed by Dr. Jaskaran Chance at the [facility]. It was felt that her home support system was inadequate and that she may not have the resources in her home environment to appropriately care for her needs. In this regard, a social worker palliative care consultation had been recommended on several occassions, but patient apparently insisted on remaining in her home environment despite that there was thought that is may be less than optimal. The patient is here at the [facility] for a second opinion [...] CAD (coronary artery disease) Dr. Brenda Awan [facility], [employer] element KIMMY LAD 11/20/2012, Stress test 04/2014 inferoapical reversible ischemia,small LVEF 48-50%, C 12/2014 L main-normal, LAD widely patent, Cx diffuse mild luminal irregularities with 80%focal stenosis distal, RCA dominant with minimal luminal irregularities. PTCA and [employer] premier KIMMY distal Cx 12/20/2014, RX aspirin and plavix - Cecal ulcer 06/10/2017 - Chronic atrial fibrillation (HCC) 10/08/2016 - COPD (chronic obstructive pulmonary disease) ([facility]) - Depressive disorder 12/29/2016 - Disruption of surgical wound 09/2015 Right tibia - Dorsalgia 12/29/2016 - Dyslipidemia - Gastric bypass status for obesity 12/29/2016 - Gastroesophageal reflux disease without esophagitis 10/08/2016 - HTN (hypertension) - Muscular weakness 12/29/2016 - Primary osteoarthritis involving multiple joints 12/29/2016 - Pure hypercholesterolemia - Rheumatoid arthritis ([facility]) 2007 - Sleep apnea - Stented coronary artery 12/29/2016 PAST SURGICAL HISTORY Procedure Laterality Date - CC CORONARY STENT 11/20/2012 KIMMY LAD - CC CORONARY STENT 12/20/2014 KIMMY, Cfx - SECTION HX - COLONOSCOPY 06/10/2017 [facility], Nonspecific cecal ulcer - GASTRIC BYPASS HX 1986 - HERNIA REPAIR HX 1987; 1989 - PAST SURGICAL HISTORY OF Right 09/2015 right tibia fracture ORIF - PAST SURGICAL HISTORY OF Right 01/20/2016 Removal of hardware, right tibia - TOTAL KNEE REPLACEMENT Right 2003 [facility] Gen. - TOTAL KNEE REPLACEMENT Left 2004 [facility] Gen. MEDICATIONS ergocalciferol, vitamin D2, [...] Rubor of Dependency: Negative (Y) Positive (N) [place]-Weistein Examination: Comments: Measurements: Right Calf: 36.5 cm Right Ankle: 29 cm Left Calf: 37.5 cm Left Ankle: 24.2 cm Neuro: Alert AND oriented x3, ENGINE RESEARCH ENGINEER II-XII grossly intact, reflexes 2+ and symmetric, [...] Simons ? Interpreting physician: Vishal Torres MD, RVJr ? 01/24/17 Segmental arterial doppler study bilateral [...] No acute fracture or bony destruction. ? Credit Professional: DWIGHT ? Transcribe Date/Time: Oct 14 2017 [...] No acute fracture or bony destruction. ? Credit Professional: DWIGHT ? Transcribe Date/Time: Oct 14 2017 [...] -- Week 5 Wound Bed (Post-debridement): 100% [place] % of Healthy tissue: Undermining: No Tunneling: No Tendon/bone exposed: NO Wound Edge/Margins: Well-defined wound edges and Edge attached to base Periwound Tissue: [place], dry and intact, No fluctuance, induration or [...] worsening symptoms. Luis Simons CNP Charge Capture: [id number] Luis Simons APRN.LOI 04/13/2018 2:45 PM Signed [...] following changes to the Wound Center at [phone] or go to the Emergency Department: ? [...] Copy of wound care instructions faxed to [facility] Home Care Luis Simons CNP/csm Peter Jason MA, MA 01/13/2018 [...] Copy of wound care instructions faxed to [facility] Home Care EDUCATION: The patient/family was [...] intent to comply. Referring Provider: MANI NEWMAN [[id number]] Allergies As of Date: 01/13/2018 (No Known Allergies) Date Reviewed: 01/06/2018 Reviewed by: Megan Canales - Fully Assessed Primary Visit Diagnosis:Venous stasis ulcer of right lower leg with edema of right lower leg (HCC) [I83.019, I83.891, L97.919, R60.9] Other Visit Diagnosis:Venous insufficiency (chronic) (peripheral) [I87.2] Order(s):PREALBUMIN BLD [SQPREALB] Order #: [id number] FUTURE XR TIBIA FIBULA 2V AP/LAT RT [5645036] Order #: [id number] FUTURE WOUND CULTURE AND GRAM STAIN [SQWCUL] Order #: [id number]. #:[id number] ANAEROBE CULTURE [SQANACUL] Order #: [id number]. #:[id number] FUNGAL CULTURE [SQFCUL] Order #: [id number]. #:[id number] Prescriptions as of 01/13/2018 Sig: X SPIRONOLACTONE [...] following changes to the Wound Center at [phone] or go to the Emergency Department: ? [...] Copy of wound care instructions faxed to [facility] Home Care Luis Simons LINOTYPER/csm Visit Notes: >> Peter (Tory) TORY Jason [...] Copy of wound care instructions faxed to [facility] Home Care EDUCATION: The patient/family was [...] 01/19/18 PROCEDURE Observed: 01/13/2018 Status: COMPLETED Source: [place] 11:00 AM [facility] REPOSITORY HNO ID: [id number] Author: Luis Lyles (Telecommunication Engineer) Carla Service: (none) Author Type: Nurse Practitioner [...] BASIC PANEL Collected: 01/11/2018 Status: F Source: [facility] 2:30 PM HEALTH SYSTEM REPOSITORY TYPE [...] Gap 12 Performed By: #### P8 #### [facility] [address] [address] MDRD GFR Collected: 01/11/2018 Status: F Source: [facility] 2:30 PM HEALTH SYSTEM REPOSITORY TYPE CODE TESTS RESULT OUT OF RANGE REFERENCE UNITS LAB GFRFN(LOINC >60mL/min/1.73m ) 2 eGFR >60 Result Comment: If the patient is , multiply the result by 1.210. Performed By: #### GFR #### [place] [address] PROGRESS Observed: 01/06/2018 Status: COMPLETED Source: [place] 1:51 PM [facility] OTHER [facility] REPOSITORY O ID: [id number] Author: Corey Mckeon Service: (none) Author Type: [...] met Beta louann for ASHD with prior MO or prior LVEF<40 (NQF 0070) - met [...] treatment plan. This note was generated using [employer] voice recognition system, and there may be [...] CAD (coronary artery disease) Dr. Brenda Awan [facility], [employer] KIMMY LAD 11/20/2012, Stress test [...] 10/08/2016 - COPD (chronic obstructive pulmonary disease) ([facility]) - Depressive disorder 12/29/2016 - Disruption of [...] tibia - TOTAL KNEE REPLACEMENT Right 2003 [facility] Gen. - TOTAL KNEE REPLACEMENT Left 2004 [facility] Gen. No family history on file. 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 In [facility] for one year, and [facility] before that. Discharged home 2015. Lives alone [...] MD CNOV Observed: 01/06/2018 Status: COMPLETED Source: [place] 1:30 PM [facility] REPOSITORY Office Visit (AGCARDWST) ROSA BELTRAN ([id number]) 1935 F Date Time Provider Department 01/06/18 [...] met Beta louann for ASHD with prior MO or prior LVEFANDlt;40 (NQF 0070) - met Beta louann for HF with prior LVEFANDlt;40 (NQ 0083) - N/A ANKIT-I or ARB for ASHD with DM or prior LVEFANDlt;40 (NQF 0066) - met Statin therapy for ASHD or FHL or DM - to be started BMI documented and plan if ANDgt;25 (NQ 0421) - lifestyle recommendation form Tobacco use [...] treatment plan. This note was generated using [employer] voice recognition system, and there may be [...] (HCC) - CAD (coronary artery disease) Dr. Gutierrez [facility], [employer] KIMMY LAD 11/20/2012, Stress [...] 10/08/2016 - COPD (chronic obstructive pulmonary disease) ([facility]) - Depressive disorder 12/29/2016 - Disruption of surgical wound 09/2015 Right tibia - Dorsalgia 12/29/2016 - Dyslipidemia - Gastric bypass status for obesity 12/29/2016 - Gastroesophageal reflux disease without esophagitis 10/08/2016 - HTN (hypertension) - Muscular weakness 12/29/2016 - Primary osteoarthritis involving multiple joints 12/29/2016 - Pure hypercholesterolemia - Rheumatoid arthritis ([facility]) 2007 - Sleep apnea - Stented coronary [...] tibia - TOTAL KNEE REPLACEMENT Right 2003 [facility] Gen. - TOTAL KNEE REPLACEMENT Left 2004 [facility] Gen. No family history on file. 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 In [facility] for one year, and [facility] before that. Discharged home 2015. Lives alone [...] the following areas and commit to making intermodal customer service changes. EAT A WHOLE FOOD, PLANT BASED [...] Modules accepted: Orders Referring Provider: COREY MCKEON [[id number]] Allergies As of Date: 01/06/2018 (No Known Allergies) Date Reviewed: 01/06/2018 Reviewed by: Megan Canales - Fully Assessed Reason for Visit: Recheck [92] Primary Visit Diagnosis:ASHD (arteriosclerotic heart disease) [I25.10] Other Visit Diagnosis:Chronic systolic CHF (congestive heart failure) (HCC) [I50.22] Order(s):spironolactone (ALDACTONE) 25 mg tabletTake 1 tablet by mouth twice daily.Disp: Rfl: BASIC METABOLIC PNL [SQBMP] Order #: [id number] FUTURE Prescriptions as of 01/06/2018 Sig: SPIRONOLACTONE [...] the following areas and commit to making retirement changes. EAT A WHOLE FOOD, PLANT BASED [...] 01/06/18 PROGRESS Observed: 12/30/2017 Status: COMPLETED Source: [place] 1:45 PM [facility] OTHER [facility]AMP[facility] REPOSITORY HNO ID: [id number] Author: Luis Rodriguez) LOI iSmons Service: (none) Author Type: Nurse Practitioner Type: Progress Notes Filed: 01/03/2018 11:03 AM Note Text: DATE OF VISIT: 12/30/2017 REASON FOR VISIT: Non-healing lower extremity wound. HISTORY OF PRESENT ILLNESS: Rosa Beltran is a 81 year old female who presents to the [facility] for further evaluation [...] followed by Dr. Jaskaran Chance at the [facility]. It was felt that her home support system was inadequate and that she may not have the resources in her home environment to appropriately care for her needs. In this regard, a social worker palliative care consultation had been recommended on several occassions, but patient apparently insisted on remaining in her home environment despite that there was thought that is may be less than optimal. The patient is here at the [facility] for a second opinion [...] 10/08/2016 - COPD (chronic obstructive pulmonary disease) ([facility]) - Depressive disorder 12/29/2016 - Disruption of surgical wound 09/2015 Right tibia - Dorsalgia 12/29/2016 - Dyslipidemia - Gastric bypass status for obesity 12/29/2016 - Gastroesophageal reflux disease without esophagitis 10/08/2016 - HTN (hypertension) - Muscular weakness 12/29/2016 - Primary osteoarthritis involving multiple joints 12/29/2016 - Pure hypercholesterolemia - Rheumatoid arthritis ([facility]) 2007 - Sleep apnea - Stented coronary artery 12/29/2016 PAST SURGICAL HISTORY Procedure Laterality Date - CC CORONARY STENT 11/20/2012 KIMMY LAD - CC CORONARY STENT 12/20/2014 KIMMY, Cfx - SECTION HX - COLONOSCOPY 06/10/2017 [facility], Nonspecific cecal ulcer - GASTRIC BYPASS HX 1986 - HERNIA REPAIR HX 1987; 1989 - PAST SURGICAL HISTORY OF Right 09/2015 right tibia fracture ORIF - PAST SURGICAL HISTORY OF Right 01/20/2016 Removal of hardware, right tibia - TOTAL KNEE REPLACEMENT Right 2003 [facility] Gen. - TOTAL KNEE REPLACEMENT Left 2004 [facility] Gen. MEDICATIONS ergocalciferol, vitamin D2, [...] Rubor of Dependency: Negative (Y) Positive (N) [place]-We[place]in Examination: Comments: Measurements: Right Calf: 36.5 cm Right Ankle: 29 cm Left Calf: 37.5 cm Left Ankle: 24.2 cm Neuro: Alert AND oriented x3, ENGINE RESEARCH ENGINEER II-XII grossly intact, reflexes 2+ and symmetric, [...] No acute fracture or bony destruction. ? Credit Professional: DWIGHT ? Transcribe Date/Time: Oct 14 2017 [...] No acute fracture or bony destruction. ? Credit Professional: DWIGHT ? Transcribe Date/Time: Oct 14 2017 [...] -- Week 5 Wound Bed (Post-debridement): 100% [place] % of Healthy tissue: Undermining: No Tunneling: No Tendon/bone exposed: NO Wound Edge/Margins: Well-defined wound edges and Edge attached to base Periwound Tissue: [place], dry and intact, No fluctuance, induration or [...] worsening symptoms. Luis Simons CNP Charge Capture: [id number] PROCEDURE Observed: 12/30/2017 Status: COMPLETED Source: [place] 1:45 PM CLIN[facility] OTHER CAMPUS REPOSITORY HNO ID: [id number] Author: Luis Rodriguez) LOI Simons Service: (none) [...] applied. CNOV Observed: 12/30/2017 Status: COMPLETED Source: [place] 1:45 PM [facility] OTHER CAMPUS REPOSITORY Office Visit (PLWDMR) ROSA BELTRAN ([id number]) 1935 F Date Time Provider Department 12/30/17 1:45 PM LUIS SIMONS, (LOI) [facility] During your visit today, we recorded the following information about you: Temperature Pulse Respiration Blood pressure 98.1 degrees 59/minute 15/minute 143/78 Luis Simons CNP, LOI 01/10/2018 2:27 PM Incomplete Revision DATE OF VISIT: 12/30/2017 REASON FOR VISIT: Non-healing lower extremity wound. HISTORY OF PRESENT ILLNESS: Rosa Beltran is a 81 year old female who presents to the [facility] for further evaluation [...] followed by Dr. Jaskaran Chance at the [facility]. It was felt that her home support system was inadequate and that she may not have the resources in her home environment to appropriately care for her needs. In this regard, a social worker palliative care consultation had been recommended on several occassions, but patient apparently insisted on remaining in her home environment despite that there was thought that is may be less than optimal. The patient is here at the [facility] for a second opinion [...] with hypoxia (HCC) 09/30/2017 - Atrial fibrillation ([facility]) - CAD (coronary artery disease) Dr. Brenda [...] 10/08/2016 - COPD (chronic obstructive pulmonary disease) ([facility]) - Depressive disorder 12/29/2016 - Disruption of [...] Cfx - SECTION HX - COLONOSCOPY 06/10/2017 [facility], Nonspecific cecal ulcer - GASTRIC BYPASS HX 1986 - HERNIA REPAIR HX 1987; 1989 - PAST SURGICAL HISTORY OF Right 09/2015 right tibia fracture ORIF - PAST SURGICAL HISTORY OF Right 01/20/2016 Removal of hardware, right tibia - TOTAL KNEE REPLACEMENT Right 2003 [facility] Gen. - TOTAL KNEE REPLACEMENT Left 2004 [facility] Gen. MEDICATIONS ergocalciferol, vitamin D2, [...] Rubor of Dependency: Negative (Y) Positive (N) [place] Examination: Comments: Measurements: Right Calf: 36.5 cm Right Ankle: 29 cm Left Calf: 37.5 cm Left Ankle: 24.2 cm Neuro: Alert ANDamp; oriented x3, ENGINE RESEARCH ENGINEER II-XII grossly intact, reflexes 2+ and symmetric, [...] at the distal calf. ? Technologist: Cleo aMgdaleno T Ordering physician: Luis Simons ? Interpreting [...] No acute fracture or bony destruction. ? Credit Professional: PSCB ? Transcribe Date/Time: Oct 14 2017 [...] No acute fracture or bony destruction. ? Credit Professional: DWIGHT ? Transcribe Date/Time: Oct 14 2017 [...] -- Week 5 Wound Bed (Post-debridement): 100% [place] % of Healthy tissue: Undermining: No Tunneling: No Tendon/bone exposed: NO Wound Edge/Margins: Well-defined wound edges and Edge attached to base Periwound Tissue: [place], dry and intact, No fluctuance, induration or [...] worsening symptoms. Luis Simons CNP Charge Capture: [id number] Luis Simons CNP, LINOTYPER 01/03/2018 11:03 AM In Progress DATE OF VISIT: 12/30/2017 REASON FOR VISIT: Non-healing lower extremity wound. HISTORY OF PRESENT ILLNESS: Rosa Beltran is a 81 year old female who presents to the [facility] for further evaluation [...] followed by Dr. Jaskaran Chance at the [facility]. It was felt that her home support system was inadequate and that she may not have the resources in her home environment to appropriately care for her needs. In this regard, a social worker palliative care consultation had been recommended on several occassions, but patient apparently insisted on remaining in her home environment despite that there was thought that is may be less than optimal. The patient is here at the [facility] for a second opinion [...] hypothyroidism - Acute respiratory failure with hypoxia ([facility]) 09/30/2017 - Atrial fibrillation ([facility]) - CAD (coronary artery disease) Dr. Brenda [...] 10/08/2016 - COPD (chronic obstructive pulmonary disease) ([facility]) - Depressive disorder 12/29/2016 - Disruption of surgical wound 09/2015 Right tibia - Dorsalgia 12/29/2016 - Dyslipidemia - Gastric bypass status for obesity 12/29/2016 - Gastroesophageal reflux disease without esophagitis 10/08/2016 - HTN (hypertension) - Muscular weakness 12/29/2016 - Primary osteoarthritis involving multiple joints 12/29/2016 - Pure hypercholesterolemia - Rheumatoid arthritis ([facility]) 2007 - Sleep apnea - Stented coronary [...] tibia - TOTAL KNEE REPLACEMENT Right 2003 [facility] Gen. - TOTAL KNEE REPLACEMENT Left 2004 [facility] Gen. MEDICATIONS ergocalciferol, vitamin D2, [...] Rubor of Dependency: Negative (Y) Positive (N) [place] Examination: Comments: Measurements: Right Calf: 36.5 cm Right Ankle: 29 cm Left Calf: 37.5 cm Left Ankle: 24.2 cm Neuro: Alert ANDamp; oriented x3, ENGINE RESEARCH ENGINEER II-XII grossly intact, reflexes 2+ and symmetric, [...] No acute fracture or bony destruction. ? Credit Professional: DWIGHT ? Transcribe Date/Time: Oct 14 2017 [...] No acute fracture or bony destruction. ? Credit Professional: DWIGHT ? Transcribe Date/Time: Oct 14 2017 [...] -- Week 5 Wound Bed (Post-debridement): 100% [place] % of Healthy tissue: Undermining: No Tunneling: No Tendon/bone exposed: NO Wound Edge/Margins: Well-defined wound edges and Edge attached to base Periwound Tissue: [place], dry and intact, No fluctuance, induration or [...] worsening symptoms. Luis Simons CNP Charge Capture: [id number] Luis Simons CNP, LINOTYPER 01/03/2018 11:03 AM Signed A procedural pause [...] Copy of wound care instructions faxed to [facility] Home Care EDUCATION: The patient/family was [...] following changes to the Wound Center at [phone] or go to the Emergency Department: ? [...] Copy of wound care instructions faxed to [facility] Home Care Luis Simons CNP/mjl Referring Provider: MANI NEWMAN [[id number]] Allergies As of Date: 12/30/2017 (No Known [...] L97.929] INVALID FOR* Priority: E More... Polyneuropathy ([facility]) [G62.9] INVALID FOR* Cecal ulcer [K63.3] INVALID FOR* Acute respiratory failure with hypoxia ([facility]) [J*INVALID FOR*10/10/2017 Priority: Severe Anticoagulation goal of INR 2 to 3 [Z51.81, Z79*INVALID FOR* Priority: Mild More... ANASARCA/HYPOXIA 09/30/17 ADMISSION SUMMARY [Z9*INVALID FOR* Priority: Very Severe More... Skin bulla [R23.8] INVALID FOR* Priority: Mild More... Respiratory failure with hypoxia ([facility]) [J96.91] INVALID FOR* Priority: Severe Heart failure [...] following changes to the Wound Center at [phone] or go to the Emergency Department: ? [...] Copy of wound care instructions faxed to [facility] Home Care Luis Simons LINOTYPER/mjl Visit Notes: >> Tiffanie (Rn) ELENA Humphrey [...] Copy of wound care instructions faxed to [facility] Home Care EDUCATION: The patient/family was [...] 01/03/18 PROGRESS Observed: 12/26/2017 Status: COMPLETED Source: [place] 1:51 PM [facility] REPOSITORY O ID: [id number] Author: Maritza Tian [facility] Service: (none) Author Type: Registered Nurse Type: Progress Notes Filed: 12/26/2017 1:57 PM Note Text: TRANSITION CARE MANAGEMENT (TCM) INITIAL CONTACT Provider Action/FYI: Pt feeling well. Grateful for call to F/U- she stated she feels much better after call. Has F/U 12/29. Initial contact with patient post discharge, spoke to Rosa. Patient identified by name and . SUMMARY: -Pt discharged from [facility] on 12/21/17. Adm 12/19 -Follow up [...] EF. ?? ?Pt will have HH from [facility] Visiting Nurse has Personal Touch will be closing office here and wound center at [place]. ANA Observed: 12/22/2017 Status: COMPLETED Source: [place] 12:00 AM [facility] REPOSITORY Patient Outreach (INTMWS) ROSA BELTRAN ([id number]) 1935 F Date Time Provider Department 12/22/17 [...] name and . SUMMARY: -Pt discharged from [facility] on 12/21/17. Adm 12/19 -Follow up [...] EF. ?? ?Pt will have HH from [facility] Visiting Nurse has Personal Touch will be closing office here and wound center at [place]. Allergies As of Date: 12/22/2017 (No Known Allergies) Date Reviewed: 12/21/2017 Reviewed by: Anat (Elena) ELENA Cheung - Fully Assessed Reason for Visit: Client Application Support Engineer Hospital Follow Up [2839] Prescriptions as of 12/22/2017 Sig: METOPROLOL TARTRATE [...] BLOOD SCREEN Collected: 12/21/2017 Status: F Source: [place] 4:40 PM [facility] OTHER CAMPUS REPOSITORY TYPE CODE TESTS RESULT OUT OF REFERENCE UNITS RANGE LAB OBSRCE Occult Stool Blood Source: LAB OBSC Occult Negative Blood Screen Performed By: #### OBSCN #### [facility] [address] [facility] [phone] CNDS Observed: 12/21/2017 Status: COMPLETED Source: [place] 3:58 PM [facility] OTHER CAMPUS REPOSITORY HNO ID: [id number] Author: Kenya Wilson Service: Hospital Medicine Author [...] Center 01/06/2018 1:30 PM Corey Mckeon [facility] 03/06/2018 2:20 PM [facility] 03/13/2018 12:40 PM Ty Beckman [facility] Total Discharge time: 32 minutes. Signature: Kenya Wilson MD Date: December 21, 2017 Time: 3:58 PM CASE MANAGEM Observed: 12/21/2017 Status: COMPLETED Source: [place] 3:53 PM CLINIC OTHER CAMPUS REPOSITORY HNO ID: [id number] Author: Ayanna ParksRn) ELENA Garcia Service: Case Management Author Type: Registered Nurse Type: Care Mgt Progress Note Filed: 12/21/2017 4:08 PM Note Text: CARE MANAGEMENT DISCHARGE NOTE SERVICE DATE: 12/21/2017 SERVICE TIME: 3:53 PM LOS: 2 days Admission Date: 12/19/2017 DISCHARGE ARRANGEMENT (list agency and phone number) Home care Provider:Vasu DEVLIN [facility] Pt has Chronic 3L. CAREGIVER ASSESSMENT: Caregiver is ready, willing and able to meet the patient's needs as recommended by the inter-professional team? Yes Patient's transition needs and plan for meeting these needs: self care, daughter Does the patient have an acute stroke diagnosis, or has the patient had a stroke during this admission? No HANDOFF COMMUNICATION: bedside RN Tina Beltran (DIL )[phone] (M), ETA 7pm TRANSPORTATION ARRANGEMENTS: Car daughter in law (DIL) ADDITIONAL CONTACT RESOURCES: Discharge Information ED to Hosp-Admission (Current) from 12/19/2017 in [facility] Care Agency [employer] No IM 2 days SIGNATURE: Ayanna Garcia RN PATIENT NAME: Rosa Beltran DATE: December 21, 2017 TIME: 3:53 PM PAGER/CONTACT #: [phone] ALLIED HEALTH Observed: 12/21/2017 Status: COMPLETED Source: [place] 2:45 PM CLINIC OTHER CAMPUS REPOSITORY HNO ID: [id number] Author: Slick De Leon (Chaplain) Service: Spiritual Care Author Type: Certified Coding Specialist Type: Allied Health Filed: 12/21/2017 4:13 PM [...] needs please dial 0 to page the pickle solution maker project management consultant. Certified Coding Specialist Signature: Chaplain Lula To contact the [facility] Care Department: Please call [phone] or Page the On-Call Certified Coding Specialist at pager [phone] Thank you for the opportunity to be of service. This is an electronically created document. IF PRINTED, PLEASE DO NOT REMOVE FROM THE CHART OR MODIFY PRINTED COPY. CASE MANAGEM Observed: 12/21/2017 Status: COMPLETED Source: [place] 2:42 PM [facility] [place] REPOSITORY HNO ID: [id number] Author: Ayanna Petersen (Rn) ELENA Garcia Service: Case Management Author Type: Registered Nurse Type: Care Mgt Progress Note Filed: 12/21/2017 2:44 PM Note Text: CARE MANAGEMENT PROGRESS NOTE SERVICE DATE: 12/21/2017 SERVICE TIME: 2:43 PM LOS: 2 days EMR reviewed. New 3.5L n/c with baseline 3L. [facility] Accepted, NEED F2F. From Home Alone; her fhqnxwst-ny-tst lives in the unit above her ; zqcfzdeq-ql-rsc to transport. SIGNATURE: Ayanna Garcia RN PATIENT NAME: Rosa Beltran DATE: December 21, 2017 TIME: 2:43 PM PAGER/CONTACT #:[phone] PT ED Observed: 12/21/2017 Status: COMPLETED Source: [place] 1:08 PM [facility] [place] REPOSITORY HNO ID: [id number] Author: Alisa Beltre (Pharmacist) Service: Pharmacy Author [...] RECOMMENDATIONS (IF ANY): n/a SIGNATURE: Norma Moore (Pre Sales Network Engineer) Preceptor Addendum: This case has been reviewed and discussed with the certified pharmacy tech. I agree with the assessment/plan described by the student. Changes and additions to the details in the note are indicated by italics and . Alisa Beltre, Pharmacist NURSING PROG Observed: 12/21/2017 Status: COMPLETED Source: [place] 12:34 PM CLINIC OTHER CAMPUS REPOSITORY [facility] ID: [id number] Author: Anat (Rn) ELENA Cheung Service: (none) Author Type: Registered Nurse Type: Nursing Progress Note Filed: 12/21/2017 7:52 PM Note Text: Nursing Progress Note Patient Name: Rosa Beltran Patient Location: [id number] Daily Note:1145: assisted pt back to bed from [facility]. O2 intact at 3L/NC. denies pain at [...] ALLIED HEALTH Observed: 12/21/2017 Status: COMPLETED Source: [place] 11:38 AM [facility] OTHER CAMPUS REPOSITORY HNO ID: [id number] Author: Maile Bray Service: (none) Author Type: (none) Type: Allied Health Filed: 12/21/2017 11:42 AM Note Text: HEALING SERVICES THERAPY NOTE SERVICE DATE: 12/21/2017 The order placed is really for grief support and will be assessed first by our Certified Coding Specialist for grief counseling - I have placed an order for spiritual care. SIGNATURE: Maile Bray PATIENT NAME: Rosa Beltran DATE: December 21, 2017 TIME: 11:38 AM PAGER/CONTACT #: [phone] PROTIME Collected: 12/21/2017 Status: F Source: [place] 4:55 AM [facility] REPOSITORY TYPE CODE TESTS RESULT OUT OF RANGE REFERENCE UNITS LAB PSEC 9.7-13.0 sec High PT Sec 28.8 LAB INR 0.9-1.3 High PT INR 2.9 Result Comment: Vitamin K Antagonist (VKA) Therapeutic Range: INR 2 to 3 (Target INR of 2.5) Note: For patients treated with VKA drugs, such as warfarin, the [place] [employer]icians 2012 Guideline recommends [...] Chest 2012, 141:7S-47S Genevieve RA et al. [facility] 2017, 70: 252-289 Performed By: #### PT, CMP #### [facility] [address] [place] [address] COMP METABOLIC PANEL Collected: 12/21/2017 Status: F Source: [place] 4:55 AM [facility] OTHER CAMPUS REPOSITORY TYPE CODE TESTS [...] mg/dL Glucose High 100 Result Comment: The [place] Diabetes Association (ADA) provides guidance for cutoff [...] Standards of Medical Care in Diabetes 2016, [place] [employer]. Diabetes Care. 2016.39(Suppl 1). LAB [...] GFR. Performed By: #### PT, CMP #### [facility] [address] [place] [address] CBC Collected: 12/21/2017 Status: F Source: [place] 4:55 AM [facility] REPOSITORY TYPE CODE TESTS RESULT [...] 11.6 Performed By: #### CBC, MG1 #### [facility] [address] [place] [address] MAGNESIUM Collected: 12/21/2017 Status: F Source: [place] 4:55 AM [facility] REPOSITORY TYPE CODE TESTS RESULT OUT OF REFERENCE UNITS RANGE LAB MG 1.7-2.3 mg/dL Magnesium 1.7 Performed By: #### CBC, MG1 #### [facility] [address] [place] [address] ALLIED HEALTH Observed: 12/20/2017 Status: COMPLETED Source: [place] 5:00 PM [facility] REPOSITORY HNO ID: [id number] Author: Svetlana (Rn) Carlos RN Service: Ostomy [...] and lymphedema. Patient is followed at the [facility] for management. Patient states [facility] changes her dressings 2-3 times a week. [...] resume wound care as provided thru the [place] [facility]. PAtient acknowledges instructions. Maintain [...] necessary. PROGRESS Observed: 12/20/2017 Status: COMPLETED Source: [place] 4:29 PM [facility] OTHER CAMPUS REPOSITORY O ID: [id number] Author: Kenya Stevenson) Mike Service: Hospital Medicine Author Type: Physician Type: Progress Notes Filed: 12/21/2017 12:39 AM Note Text: HOSPITAL MEDICINE PROGRESS NOTE Name: Rosa Beltran SERVICE DATE: 12/20/2017 SERVICE TIME: 4:29 PM LOCATION / ROOM: [id number] Hospital Medicine/Primary Attending: Kenya Wilson MD NIGHT COVERAGE BETWEEN 5.30P-7.30A Page [id number] ASSESSMENT AND PLAN Active Hospital Problems Diagnosis [...] Justin Dangelo (Pa) 2.5 mg at 12/20/17 101 levothyroxine 100 mcg tab(s) (SYNTHROID) 100 mcg [...] NURSING PROG Observed: 12/20/2017 Status: COMPLETED Source: [place] 4:00 PM [facility] OTHER [facility]AMP[facility] REPOSITORY [facility] ID: [id number] Author: Jacqueline (Rn) ELENA Martin Service: Nursing Author Type: Registered Nurse Type: Nursing Progress Note Filed: 12/20/2017 7:12 PM Note Text: Nursing Progress Note Patient Name: Rosa Beltran Patient Location: [facility]-0260/[id number] Daily Note: Phuc Gonzalez RN in to change dressings. Assistance provided. Venipuncture x 1 with #22 in rt FA that flushes well and has good blood return. This note was completed by: Jacqueline Martin RN NURSING PROG Observed: 12/20/2017 Status: COMPLETED Source: [place] 1:20 PM [facility] REPOSITORY HNO ID: [id number] Author: Tina (Rn) ELENA Cancino Service: Nursing Author Type: Registered Nurse Type: Nursing Progress Note Filed: 12/20/2017 1:32 PM Note Text: Nursing Progress Note Patient Name: Rosa Beltran Patient Location: [place] [id number]- Daily Note: Noted heart rate afib/flutter in the mid 40's on tele. Dr. Wilson on unit and updated. Pt takes metoprolol 50 mg Q12H, will review when he rounds on pt This note was completed by: Tina Cancino RN PT ED Observed: 12/20/2017 Status: COMPLETED Source: [place] 1:12 PM [facility] REPOSITORY HNO ID: [id number] Author: Jolynn Lowe (Pharmacist) Service: Pharmacy Author [...] N/A Outpatient Follow-up: Primary Physician Norma Moore (Pre Sales Network Engineer) Preceptor Addendum: This case has been reviewed and discussed with the certified pharmacy tech. I agree with the assessment/plan described by the student. Changes and additions to the details in the note are indicated by italics and . Jolynn Lowe, Pharmacist CASE MANAGEM Observed: 12/20/2017 Status: COMPLETED Source: [place] 12:23 PM [facility] REPOSITORY HNO ID: [id number] Author: Ayanna Petersen (Rn) ELENA Garcia Service: Case Management Author Type: Registered Nurse Type: Care Mgt Progress Note Filed: 12/20/2017 12:29 PM Note Text: CARE MANAGEMENT PROGRESS NOTE SERVICE DATE: 12/20/2017 SERVICE TIME: 12:23 PM LOS: 1 day EMR reviewed. Met with Rosa to review her dc plan. Current HHC closing . Chose 1- [facility] ( ref sent) 2- [facility]. NEED F2F. From Home Alone; her cmmwgejd-pn-euc lives in the unit above her ; neauprjl-vz-giu to transport. SIGNATURE: Ayanna Garcia RN PATIENT NAME: Rosa Beltran DATE: December 20, 2017 TIME: 12:23 PM PAGER/CONTACT #: [phone] PROTIME Collected: 12/20/2017 Status: F Source: [place] 10:07 AM [facility] REPOSITORY TYPE CODE TESTS RESULT OUT OF RANGE REFERENCE UNITS LAB PSEC 9.7-13.0 sec High PT Sec 23.7 LAB INR 0.9-1.3 High PT INR 2.4 Result Comment: Vitamin K Antagonist (VKA) Therapeutic Range: INR 2 to 3 (Target INR of 2.5) Note: For patients treated with VKA drugs, such as warfarin, the [place] [employer]icians 2012 Guideline recommends [...] Chest 2012, 141:7S-47S Genevieve RA, et al. [facility] 2017, 70: 252-289 Performed By: #### PT #### [facility] [address] [place] [address] CBC Collected: 12/20/2017 Status: F Source: [place] 8:50 AM [facility] [place] REPOSITORY TYPE CODE TESTS RESULT OUT OF [...] Performed By: #### CBC, BMP, MG1 #### [facility] [address] [place] [address] BASIC METABOLIC PANL Collected: 12/20/2017 Status: F Source: [place] 8:50 AM [facility] REPOSITORY TYPE CODE TESTS RESULT OUT OF REFERENCE UNITS RANGE LAB GLU 74-99 mg/dL Glucose 86 Result Comment: The [place] Diabetes Association (ADA) provides guidance for cutoff [...] Standards of Medical Care in Diabetes 2016, [place] [employer]. Diabetes Care. 2016.39(Suppl 1). LAB [...] Performed By: #### CBC, BMP, MG1 #### [facility] [address] [place] [address] MAGNESIUM Collected: 12/20/2017 Status: F Source: [place] 8:50 AM [facility] OTHER CAMPUS REPOSITORY TYPE CODE TESTS RESULT OUT OF REFERENCE UNITS RANGE LAB MG 1.7-2.3 mg/dL Magnesium 1.7 Performed By: #### CBC, BMP, MG1 #### [facility] [address] [place] [address] TROPONIN T Collected: 12/20/2017 Status: F Source: [place] 3:30 AM [facility] [place] REPOSITORY TYPE CODE TESTS RESULT OUT OF REFERENCE UNITS RANGE LAB TROPT 0.000-0.029 ng/mL Troponin T <0.010 Performed By: #### YOLANDE #### [facility] [address] [place], [place] [id number] URINALYSIS Collected: 12/20/2017 Status: F Source: [place] 3:14 AM [facility] OTHER CAMPUS REPOSITORY TYPE CODE TESTS RESULT OUT OF RANGE REFERENCE UNITS LAB UCOL Yellow Color Abnormal Straw Alert LAB [facility] Clear Clarity Clear LAB UGLUC Negative mg/dL Glucose, Urine Negative LAB UBIL Negative Bilirubin, Urine Negative LAB UKET Negative Ketones, Urine Negative LAB USPG 1.001-1.029 Specific [place], Ur 1.010 LAB UHGB Negative Abnormal Hemoglobin/Blood, Moderate Alert Ur LAB UPH 5.0-8.0 pH 6.0 LAB UPROT Negative mg/dL Protein, Urine Negative LAB UUROB 0.2-1.0 Urobilinogen 0.2 LAB UNITR Negative Nitrites Negative LAB ULKEST Negative Leukest Negative Performed By: #### UA, UAMIC #### [facility] [address] [facility] [phone] URINE MICROSCOPIC (FOR Collected: 12/20/2017 Status: F Source: [place] LAB USE ONLY) 3:14 AM CLINIC OTHER CAMPUS REPOSITORY TYPE CODE TESTS RESULT OUT OF REFERENCE UNITS RANGE LAB UWBC 0-5 /HPF WBC 0-5 LAB URBC 0-3 /HPF RBC 0-3 LAB UCAST 0 /LPF Cast SEE COMMENT Result Comment: 0 Performed By: #### UA, UAMIC #### [facility] [address] [place] [phone] TROPONIN T Collected: 12/19/2017 Status: F Source: [place] 8:44 PM [facility] OTHER CAMPUS REPOSITORY TYPE CODE TESTS RESULT OUT OF REFERENCE UNITS RANGE LAB TROPT 0.000-0.029 ng/mL Troponin T <0.010 Performed By: #### YOLANDE #### [facility] [address] [facility] [phone] ED PROV NOTE Observed: 12/19/2017 Status: COMPLETED Source: [place] 8:00 PM [facility] OTHER [facility]AMP[facility] REPOSITORY HNO ID: [id number] Author: Tia Pardo DO Service: (none) Author [...] L nasal cannula. History provided by: Patient health social work professor used: No PAST MEDICAL HISTORY Diagnosis Date [...] 10/08/2016 - COPD (chronic obstructive pulmonary disease) ([facility]) - Depressive disorder 12/29/2016 - Disruption of surgical wound 09/2015 Right tibia - Dorsalgia 12/29/2016 - Dyslipidemia - Gastric bypass status for obesity 12/29/2016 - Gastroesophageal reflux disease without esophagitis 10/08/2016 - HTN (hypertension) - Muscular weakness 12/29/2016 - Primary osteoarthritis involving multiple joints 12/29/2016 - Pure hypercholesterolemia - Rheumatoid arthritis ([facility]) 2007 - Sleep apnea - Stented coronary artery 12/29/2016 PAST SURGICAL HISTORY Procedure Laterality Date - CC CORONARY STENT 11/20/2012 KIMMY LAD - CC CORONARY STENT 12/20/2014 KIMMY, Cfx - SECTION HX - [facility] Nonspecific cecal ulcer - GASTRIC BYPASS HX 1986 - HERNIA REPAIR HX 1987; 1989 - PAST SURGICAL HISTORY OF Right 09/2015 right tibia fracture ORIF - PAST SURGICAL HISTORY OF Right 01/20/2016 Removal of hardware, right tibia - TOTAL KNEE REPLACEMENT Right 2003 [facility] Gen. - TOTAL KNEE REPLACEMENT Left 2004 [facility] Gen. No family history on [...] of the patient and have reviewed the PA/CELEBRITY CHEF ENTREPRENEUR MEDIA PERSONALITY note. My [place] findings include: History: The [...] ED NOTE Observed: 12/19/2017 Status: COMPLETED Source: [place] 7:39 PM CL[facility] OTHER CAMPUS REPOSITORY HNO ID: [id number] Author: Madiha Hammer) ELENA Joyce Service: (none) Author Type: Registered Nurse Type: ED Notes Filed: 12/19/2017 7:40 PM Note Text: Report given to Echo BARBOSA [address] [place] [address]. ED NOTE Observed: 12/19/2017 Status: COMPLETED Source: [place] 5:55 PM CLINIC OTHER CAMPUS REPOSITORY HNO ID: [id number] Author: Madiha Hammer) Maria Del Carmen, ELENA Service: (none) Author Type: Registered Nurse Type: ED Notes Filed: 12/19/2017 5:57 PM Note Text: Pt ambulated with this RN and portable oxygen to bathroom. Pt very short of breath by time she made it back to bed. Oxygen stayed stable, 94% 4L NC. CASE MGT INIT Observed: 12/19/2017 Status: COMPLETED Source: [place] 5:50 PM CLINIC OTHER CAMPUS REPOSITORY HNO ID: [id number] Author: Tiffany Vieira (Sw) Service: (none) Author Type: Canal Equipment Mechanic Type: Care Mgt Initial Assessment Filed: 12/19/2017 6:19 PM Note Text: CARE MANAGEMENT: ASSESSMENT AND DISCHARGE PLAN SERVICE DATE: 12/19/2017 SERVICE TIME: 4:35 pm PRIMARY CARE PHYSICIAN: Mani Newman MD - confirmed with pt ADMISSION STATUS: Emergency POTENTIAL DISCHARGE PLANS Home Home Care Patient/Wireless Team Member Stated Goals: Pt is from home and is active with [facility] for wound care. Upjbszsn-xa-zoh to transport at d/c. Pt reported she was recently informed that the [facility] agency is closing and she is looking for a [facility] agency. Pt stated that the wound RN [...] Agency Choices;Home Care Order Health Insurance: Medicare, [place] Living Arrangement: Home Lives With: Alone; however, pt noted that her audjdtbg-ko-vzn lives in the unit above her Financial [...] would like to continue services at d/c; ihwnngxo-lh-avf to transport Does the patient have an [...] honored in another state while traveling (particularly [place], where her daughter lives) and SW found information on the internet stating that [place] honors AD paperwork completed in another state; pt advised this may not be the most recent information and encouraged pt to complete AD documents in [place] PRIOR TO ADMISSION: Baseline Mental Status: Alert AND Oriented, Person, Place , Time and Situation Functional Status: Independent Does Patient Currently Receive Any Community Services or Home Care? Home Health Care Agency: [facility]; ; Active. Equipment Prior to Admission: Oxygen 3 liters per minute Walker Wound Care supplies Provider [facility]: Health Issues Impacting Discharge Plan: [...] explained that pt is able to choose [facility] agency HANDOFF COMMUNICATION: To be completed upon d/c SIGNATURE: NAILA AMEZCUA PATIENT NAME: Rosa Beltran DATE: December 19, 2017 TIME: 5:50 PM PAGER/CONTACT #: [phone] HISTORY PHYSICAL Observed: 12/19/2017 Status: COMPLETED Source: [place] 5:37 PM [facility] OTHER CAMPUS REPOSITORY O ID: [id number] Author: Justin Dangelo (Pa) Service: General Internal Medicine Author Type: Physician Director Trade Type: HANDP Filed: 12/19/2017 8:36 PM Note [...] Physician: Mani Newman MD NIGHT COVERAGE Page [phone] for any questions between 5.30p-7.30a ASSESSMENT AND [...] with hypoxia (HCC) 09/30/2017 - Atrial fibrillation ([facility]) - CAD (coronary artery disease) Dr. Brenda [...] 10/08/2016 - COPD (chronic obstructive pulmonary disease) ([facility]) - Depressive disorder 12/29/2016 - Disruption of surgical wound 09/2015 Right tibia - Dorsalgia 12/29/2016 - Dyslipidemia - Gastric bypass status for obesity 12/29/2016 - Gastroesophageal reflux disease without esophagitis 10/08/2016 - HTN (hypertension) - Muscular weakness 12/29/2016 - Primary osteoarthritis involving multiple joints 12/29/2016 - Pure hypercholesterolemia - Rheumatoid arthritis ([facility]) 2007 - Sleep apnea - Stented coronary [...] tibia - TOTAL KNEE REPLACEMENT Right 2003 [facility] Gen. - TOTAL KNEE REPLACEMENT Left 2004 [facility] Gen. FAMILY HISTORY: No family [...] OF CARE Observed: 12/19/2017 Status: COMPLETED Source: [place] 2:33 PM CLINIC OTHER CAMPUS REPOSITORY HNO ID: [id number] Author: Channing Son (Pharmacist) Service: Pharmacy Author Type: Pharmacist Type: Plan of Care Filed: 12/19/2017 2:35 PM Note Text: MEDICATION HISTORY Patient Name:Rolo Beltran : 1935 Source of history:Patient: Reliability of source: Appears reliable, clearly identified: Medication name, Medication dose, Medication route, Medication frequency and Timing of last dose and Pharmacy records: [facility] Medication Nonadherence Identified: No barriers noted The [...] Allergies: ALLERGIES No Known Allergies Preferred Pharmacy: [facility] Current BEHAVIORAL HEALTH DIRECTOR Medications: Prior to Admission medications as of 12/19/17 4933 Medication Sig Last Dose Taking ASCORBIC ACID [...] ED NOTE Observed: 12/19/2017 Status: COMPLETED Source: [place] 1:44 PM [facility] OTHER CAMPUS REPOSITORY HNO ID: [id number] Author: Madiha Hammer) ELENA Joyce Service: (none) Author Type: Registered Nurse Type: ED Notes Filed: 12/19/2017 1:44 PM Note Text: Dr. Pardo rounds on pt at bedside to assess. ED NOTE Observed: 12/19/2017 Status: COMPLETED Source: [place] 1:41 PM [facility] REPOSITORY HNO ID: [id number] Author: Madiha Hammer) ELENA Joyce Service: (none) Author Type: Registered Nurse Type: ED Notes Filed: 12/19/2017 1:41 PM Note Text: Pt ambulated to and from bathroom with assistance of RN. Pt requesting snack and given ernesto crackers and diet willie marin. HIGH SENS TROPONIN T Collected: 12/19/2017 Status: F Source: [place] 1:19 PM [facility] OTHER [place] REPOSITORY TYPE CODE TESTS RESULT OUT OF [...] day MACE. Performed By: #### HSTNT #### [facility] [address] [facility] [phone] CBC AND DIFFERENTIAL Collected: 12/19/2017 Status: F Source: [place] 12:00 PM [facility] OTHER [place] REPOSITORY TYPE CODE TESTS RESULT OUT OF [...] k/uL Abs Lymph 1.85 LAB AMONO % Chaves% 6.6 LAB AAMONO <0.87 k/uL Abs Chaves 0.43 LAB AEOS % Eosin% 2.0 LAB AAEOS <0.46 k/uL Abs Eosin 0.13 LAB ABASO % Baso% 0.5 LAB AABASO <0.11 k/uL Abs Baso 0.03 Performed By: #### CBCDIF, PT, PTT, CMP, LIPA #### [facility] [address] [facility] [phone] PROTIME Collected: 12/19/2017 Status: F Source: [place] 12:00 PM CLINIC OTHER CAMPUS REPOSITORY TYPE CODE TESTS RESULT OUT OF RANGE REFERENCE UNITS LAB PSEC 9.7-13.0 sec High PT Sec 23.6 LAB INR 0.9-1.3 High PT INR 2.3 Result Comment: Vitamin K Antagonist (VKA) Therapeutic Range: INR 2 to 3 (Target INR of 2.5) Note: For patients treated with VKA drugs, such as warfarin, the [place] [employer]icians 2012 Guideline recommends [...] Chest 2012, 141:7S-47S Genevieve RA, et al. [facility] 2017, 70: 252-289 Performed By: #### CBCDIF, PT, PTT, CMP, LIPA #### [facility] [address] [facility] [phone] APTT Collected: 12/19/2017 Status: F Source: [place] 12:00 PM [facility] REPOSITORY TYPE CODE TESTS RESULT [...] laboratory APTT reagent in use throughout the [facility]. Performed By: #### CBCDIF, PT, PTT, CMP, LIPA #### [facility] [address] [place] [address] COMP METABOLIC PANEL Collected: 12/19/2017 Status: F Source: [place] 12:00 [facility] REPOSITORY TYPE CODE TESTS RESULT OUT OF REFERENCE UNITS RANGE LAB TP 6.3-8.0 g/dL Protein, High Total 8.3 LAB ALB 3.9-4.9 g/dL Low Albumin 3.3 LAB CA 8.5-10.2 mg/dL Low Calcium, Total 8.3 LAB TBIL 0.2-1.3 mg/dL Bilirubin, Total 0.7 LAB ALKP 32-117 U/L Alkaline Phosphatase 79 LAB AST 13-35 U/L AST 23 LAB GLU 74-99 mg/dL Glucose 98 Result Comment: The [place] Diabetes Association (ADA) provides guidance for cutoff [...] Standards of Medical Care in Diabetes 2016, [place] [employer] Association. Diabetes Care. 2016.39(Suppl 1). LAB [...] #### CBCDIF, PT, PTT, CMP, LIPA #### [facility] [address] [place] [address] LIPASE Collected: 12/19/2017 Status: F Source: [place] 12:00 PM [facility] OTHER CAMPUS REPOSITORY TYPE CODE TESTS RESULT OUT OF REFERENCE UNITS RANGE LAB LIPA 16-61 U/L Lipase 22 Performed By: #### CBCDIF, PT, PTT, CMP, LIPA #### [facility] [address] [place] [address] NT PRO BNP Collected: 12/19/2017 Status: F Source: [place] 12:00 PM [facility] [place] REPOSITORY TYPE CODE TESTS RESULT OUT OF REFERENCE UNITS RANGE LAB PBNP <450 pg/mL High PRO B Natr 4066 Peptide Performed By: #### NTBNP #### [facility] [address] [facility] [phone] HIGH SENS TROPONIN T Collected: 12/19/2017 Status: F Source: [place] 12:00 PM [facility] [place] REPOSITORY TYPE CODE TESTS RESULT OUT OF [...] day MACE. Performed By: #### HSTNT #### [facility] [address] [place] [address] CK, TOTAL AND CKMB Collected: 12/19/2017 Status: F Source: [place] 12:00 PM [facility] REPOSITORY TYPE CODE TESTS RESULT OUT OF REFERENCE UNITS RANGE LAB CK 42-196 U/L Low 41 CK LAB MB <4.3 ng/mL MB 2.4 LAB CKMBRI 0.0-4.0 % CK CK MB MB % not % reported with CK <100 U/L. Performed By: #### CKCKMB #### [facility] [address] [place] [address] ED NOTE Observed: 12/19/2017 Status: COMPLETED Source: [place] 11:58 AM [facility] [place] REPOSITORY HNO ID: [id number] Author: Madiha ParksRn) ELENA Joyce Service: (none) Author Type: Registered Nurse Type: ED Notes Filed: 12/19/2017 11:58 AM Note Text: Medic at bedside to obtain PIV and lab work. XR CHEST 1V FRONTAL Observed: 12/19/2017 Status: F Source: [facility] 11:41 AM [facility] OTHER CAMPUS REPOSITORY * * *Final [...] rib. Gaseous prominence of the gastric bubble. Credit Professional: PSCB Transcribe Date/Time: Dec 19 2017 11:46A Dictated by : DORENE CARBONE MD This examination was interpreted and the report reviewed and electronically signed by: DORENE CARBONE MD on Dec 19 2017 11:49AM EST [id number] PROGRESS Observed: 12/19/2017 Status: COMPLETED Source: [place] 10:30 AM CLINIC OTHER CAMPUS REPOSITORY HNO ID: [id number] Author: Luis Lyles (Loi) LOI Simons Service: (none) Author Type: Nurse Practitioner Type: Progress Notes Filed: 01/03/2018 10:52 AM Note Text: DATE OF VISIT: 12/19/2017 REASON FOR VISIT: Non-healing lower extremity wound. HISTORY OF PRESENT ILLNESS: Rosa Beltran is a 81 year old female who presents to the [facility] for further evaluation [...] followed by Dr. Jaskaran Chance at the [facility]. It was felt that her home support system was inadequate and that she may not have the resources in her home environment to appropriately care for her needs. In this regard, a social worker palliative care consultation had been recommended on several occassions, but patient apparently insisted on remaining in her home environment despite that there was thought that is may be less than optimal. The patient is here at the [facility] for a second opinion [...] with hypoxia (HCC) 09/30/2017 - Atrial fibrillation ([facility]) - CAD (coronary artery disease) Dr. Brenda [...] 10/08/2016 - COPD (chronic obstructive pulmonary disease) ([facility]) - Depressive disorder 12/29/2016 - Disruption of surgical wound 09/2015 Right tibia - Dorsalgia 12/29/2016 - Dyslipidemia - Gastric bypass status for obesity 12/29/2016 - Gastroesophageal reflux disease without esophagitis 10/08/2016 - HTN (hypertension) - Muscular weakness 12/29/2016 - Primary osteoarthritis involving multiple joints 12/29/2016 - Pure hypercholesterolemia - Rheumatoid arthritis ([facility]) 2007 - Sleep apnea - Stented coronary [...] tibia - TOTAL KNEE REPLACEMENT Right 2003 [facility] Gen. - TOTAL KNEE REPLACEMENT Left 2004 [facility] Gen. MEDICATIONS ergocalciferol, vitamin D2, [...] Rubor of Dependency: Negative (Y) Positive (N) [place] Examination: Comments: Measurements: Right Calf: 36.5 cm Right Ankle: 29 cm Left Calf: 37.5 cm Left Ankle: 24.2 cm Neuro: Alert AND oriented x3, ENGINE RESEARCH ENGINEER II-XII grossly intact, reflexes 2+ and symmetric, [...] No acute fracture or bony destruction. ? Credit Professional: DWIGHT ? Transcribe Date/Time: Oct 14 2017 [...] No acute fracture or bony destruction. ? Credit Professional: DWIGHT ? Transcribe Date/Time: Oct 14 2017 [...] -- Week 5 Wound Bed (Post-debridement): 100% [place] % of Healthy tissue: Undermining: No Tunneling: No Tendon/bone exposed: NO Wound Edge/Margins: Well-defined wound edges and Edge attached to base Periwound Tissue: [place], dry and intact, No fluctuance, induration or [...] worsening symptoms. Luis Simons CNP Charge Capture: [id number] CNOV Observed: 12/19/2017 Status: COMPLETED Source: [place] 10:30 AM [facility] REPOSITORY Office Visit (PLWDMR) ROSA BELTRAN ([id number]) 1935 F Date Time Provider Department 12/19/17 [...] year old female who presents to the [facility] for further evaluation [...] followed by Dr. Jaskaran Chance at the [facility]. It was felt that her home support system was inadequate and that she may not have the resources in her home environment to appropriately care for her needs. In this regard, a social worker palliative care consultation had been recommended on several occassions, but patient apparently insisted on remaining in her home environment despite that there was thought that is may be less than optimal. The patient is here at the [facility] for a second opinion [...] with hypoxia (HCC) 09/30/2017 - Atrial fibrillation ([facility]) - CAD (coronary artery disease) Dr. Brenda [...] 10/08/2016 - COPD (chronic obstructive pulmonary disease) ([facility]) - Depressive disorder 12/29/2016 - Disruption of [...] Cfx - SECTION HX - COLONOSCOPY 06/10/2017 [facility], Nonspecific cecal ulcer - GASTRIC BYPASS HX 1986 - HERNIA REPAIR HX 1987; 1989 - PAST SURGICAL HISTORY OF Right 09/2015 right tibia fracture ORIF - PAST SURGICAL HISTORY OF Right 01/20/2016 Removal of hardware, right tibia - TOTAL KNEE REPLACEMENT Right 2003 [facility] Gen. - TOTAL KNEE REPLACEMENT Left 2004 [facility] Gen. MEDICATIONS ergocalciferol, vitamin D2, [...] Rubor of Dependency: Negative (Y) Positive (N) [place] Examination: Comments: Measurements: Right Calf: 36.5 cm Right Ankle: 29 cm Left Calf: 37.5 cm Left Ankle: 24.2 cm Neuro: Alert ANDamp; oriented x3, ENGINE RESEARCH ENGINEER II-XII grossly intact, reflexes 2+ and symmetric, [...] No acute fracture or bony destruction. ? Credit Professional: DWIGHT ? Transcribe Date/Time: Oct 14 2017 [...] No acute fracture or bony destruction. ? Credit Professional: DWIGHT ? Transcribe Date/Time: Oct 14 2017 [...] -- Week 5 Wound Bed (Post-debridement): 100% [place] % of Healthy tissue: Undermining: No Tunneling: No Tendon/bone exposed: NO Wound Edge/Margins: Well-defined wound edges and Edge attached to base Periwound Tissue: [place], dry and intact, No fluctuance, induration or [...] worsening symptoms. Luis Simons CNP Charge Capture: [id number] Tracy Alas MA, MA 12/19/2017 11:02 AM Signed Patient taken over to E.R for low SpO2. Patient felt more short of breath than usual. Nurse to nurse report given by ML to Echo Yeager RN. Referring Provider: MANI NEWMAN [[id number]] Allergies As of Date: 12/19/2017 (No Known [...] 12/26/17 PROTIME Collected: 12/12/2017 Status: F Source: [place] 11:00 AM [facility] REPOSITORY TYPE CODE TESTS RESULT OUT OF RANGE REFERENCE UNITS LAB PSEC 9.7-13.0 sec High PT Sec 27.7 LAB INR 0.9-1.3 High PT INR 2.9 Result Comment: Vitamin K Antagonist (VKA) Therapeutic Range: INR 2 to 3 (Target INR of 2.5) Note: For patients treated with VKA drugs, such as warfarin, the [place] [employer] Physicians 2012 Guideline recommends [...] Chest 2012, 141:7S-47S Genevieve ESTRADA et al. [facility] 2017, 70: 252-289 Performed By: #### PT #### [facility] [address] [place], [place] [address] BASIC METABOLIC PANL Collected: 12/12/2017 Status: F Source: [place] 11:00 AM [facility] REPOSITORY TYPE CODE TESTS RESULT OUT OF REFERENCE UNITS RANGE LAB GLU 74-99 mg/dL High Glucose 102 Result Comment: The [place] Diabetes Association (ADA) provides guidance for cutoff [...] Standards of Medical Care in Diabetes 2016, [place] [employer]. Diabetes Care. 2016.39(Suppl 1). LAB [...] Performed By: #### BMP #### [facility] [address] [place], [place] [address] PROGRESS Observed: 12/12/2017 Status: COMPLETED Source: [place] 10:32 AM [facility] REPOSITORY HNO ID: [id number] Author: Ty Beckman Service: (none) Author Type: Physician Type: Progress Notes Filed: 12/12/2017 10:34 AM Note Text: Subjective: Patient presents to clinic c/o painful toenails. They state that the nails are especially painful with shoe gear and pressure. Patient states that nails 1-5 b/l are painful. Patient has b/l legs wrapped in profore. Has an appointment later in day at wound clinic in [place]. No other pedal complaints at this time. [...] DPM PROGRESS Observed: 12/12/2017 Status: COMPLETED Source: [place] 10:10 AM [facility] REPOSITORY HNO ID: [id number] Author: Sharlene Billingsley Ma Service: (none) Author Type: (none) Type: Progress Notes Filed: 12/12/2017 10:34 AM Note Text: Pt has layer compression on BLE. BLE being managed at [facility]. Sharlene Billingsley Ma PROGRESS Observed: 12/05/2017 Status: COMPLETED Source: [place] 11:15 AM [facility] REPOSITORY HNO ID: [id number] Author: Lili Mcnair Service: (none) Author Type: Physician Type: Progress Notes Filed: 12/12/2017 8:00 AM Note Text: VASCULAR SURGERY INITIAL CONSULT SERVICE DATE: 12/05/2017 SERVICE TIME: 11:16 AM PRIMARY CARE PHYSICIAN: Mani Newman MD REFERRING PROVIDER: Luis Simons CNP [address] [place] [address] Consult requested for an opinion regarding the [...] leg, which is being treated at the [facility]. She reports past history of [...] 10/08/2016 - COPD (chronic obstructive pulmonary disease) ([facility]) - Depressive disorder 12/29/2016 - Disruption of surgical wound 09/2015 Right tibia - Dorsalgia 12/29/2016 - Dyslipidemia - Gastric bypass status for obesity 12/29/2016 - Gastroesophageal reflux disease without esophagitis 10/08/2016 - HTN (hypertension) - Muscular weakness 12/29/2016 - Primary osteoarthritis involving multiple joints 12/29/2016 - Pure hypercholesterolemia - Rheumatoid arthritis ([facility]) 2007 - Sleep apnea - Stented coronary [...] tibia - TOTAL KNEE REPLACEMENT Right 2003 [facility] Gen. - TOTAL KNEE REPLACEMENT Left 2004 [facility] Gen. No family history on file. 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 In [facility] for one year, and [facility] before that. Discharged home 2015. Lives alone [...] sclerotherapy Will follow with [facility] and the [place] [facility] SIGNATURE: Lili Mcnair DO PATIENT NAME: Rosa Beltran DATE: December 05, 2017 TIME: 11:15 AM PROGRESS Observed: 12/03/2017 Status: COMPLETED Source: [place] 8:24 AM [facility] REPOSITORY HNO ID: [id number] Author: Mani Newman Service: (none) Author Type: [...] FRONTAL/LAT 2. Chronic respiratory failure with hypoxia ([facility]) - ICD9: 518.83, 799.02, ICD10: J96.11 On O2 supplement. 3. Chronic atrial fibrillation (HCC) - ICD9: 427.31, ICD10: I48.2 Rate controlled. Anticoagulated. 4. Essential hypertension - ICD9: 401.9, ICD10: I10 - good control 5. Ulcers of both lower extremities, unspecified ulcer stage ([facility]) - ICD9: 707.10, ICD10: L97.919, L97.929 Per Wound Clinic. Mani Newman MD XR CHEST 2V FRONTAL/LAT Observed: 12/02/2017 Status: F Source: [place] 1:13 PM [facility] REPOSITORY * * *Final Report* * * [...] lung zones, left more so than right. Credit Professional: PSCB Transcribe Date/Time: Dec 02 2017 4:32P Dictated by : JIGNESH DAVIS MD This examination was interpreted and the report reviewed and electronically signed by: JIGNESH DAVIS MD on Dec 02 2017 4:34PM EST [id number] PROGRESS Observed: 12/02/2017 Status: COMPLETED Source: [place] 12:48 PM [facility] REPOSITORY HNO ID: [id number] Author: Crissy Archer Service: (none) Author Type: [...] PM OBSOLETE Observed: 11/29/2017 Status: COMPLETED Source: [place] 12:00 AM [facility] REPOSITORY Refill (INTMWS) ROSA BELTRAN ([id number]) 1935 F Date Time Provider Department 11/29/17 [...] 11/30/17 PROTIME Collected: 11/25/2017 Status: F Source: [place] 12:27 PM [facility] REPOSITORY TYPE CODE TESTS RESULT OUT OF RANGE REFERENCE UNITS LAB PSEC 9.7-13.0 sec High PT Sec 41.9 LAB INR 0.9-1.3 High PT INR 4.4 Result Comment: Vitamin K Antagonist (VKA) Therapeutic Range: INR 2 to 3 (Target INR of 2.5) Note: For patients treated with VKA drugs, such as warfarin, the [place] [employer] Physicians 2012 Guideline recommends [...] Chest 2012, 141:7S-47S Genevieve ESTRADA et al. [facility] 2017, 70: 252-289 Performed By: #### PT #### [facility] [address] [place] [place] [id number] PROGRESS Observed: 11/25/2017 Status: COMPLETED Source: [place] 11:30 AM [facility] CAMPUS REPOSITORY O ID: [id number] Author: Luis Lyles (Telecommunication Engineer) LOI Simons Service: (none) Author Type: Nurse Practitioner Type: Progress Notes Filed: 11/29/2017 2:26 PM Note Text: DATE OF VISIT: 11/25/2017 REASON FOR VISIT: Non-healing lower extremity wound. HISTORY OF PRESENT ILLNESS: Rosa Beltran is a 81 year old female who presents to the [facility] for further evaluation [...] followed by Dr. Jaskaran Chance at the [facility]. It was felt that her home support system was inadequate and that she may not have the resources in her home environment to appropriately care for her needs. In this regard, a social worker palliative care consultation had been recommended on several occassions, but patient apparently insisted on remaining in her home environment despite that there was thought that is may be less than optimal. The patient is here at the [facility] for a second opinion [...] hypothyroidism - Acute respiratory failure with hypoxia ([facility]) 09/30/2017 - Atrial fibrillation ([facility]) - CAD (coronary artery disease) Dr. Brenda [...] 10/08/2016 - COPD (chronic obstructive pulmonary disease) ([facility]) - Depressive disorder 12/29/2016 - Disruption of surgical wound 09/2015 Right tibia - Dorsalgia 12/29/2016 - Dyslipidemia - Gastric bypass status for obesity 12/29/2016 - Gastroesophageal reflux disease without esophagitis 10/08/2016 - HTN (hypertension) - Muscular weakness 12/29/2016 - Primary osteoarthritis involving multiple joints 12/29/2016 - Pure hypercholesterolemia - Rheumatoid arthritis ([facility]) 2007 - Sleep apnea - Stented coronary artery 12/29/2016 PAST SURGICAL HISTORY Procedure Laterality Date - CC CORONARY STENT 11/20/2012 KIMMY LAD - CC CORONARY STENT 12/20/2014 KIMMY, Cfx - SECTION HX - COLONOSCOPY 06/10/2017 [facility], Nonspecific cecal ulcer - GASTRIC BYPASS HX 1986 - HERNIA REPAIR HX 1987; 1989 - PAST SURGICAL HISTORY OF Right 09/2015 right tibia fracture ORIF - PAST SURGICAL HISTORY OF Right 01/20/2016 Removal of hardware, right tibia - TOTAL KNEE REPLACEMENT Right 2003 [facility] Gen. - TOTAL KNEE REPLACEMENT Left 2004 [facility] Gen. MEDICATIONS ergocalciferol, vitamin D2, [...] Rubor of Dependency: Negative (Y) Positive (N) [place]-Weistein Examination: Comments: Measurements: Right Calf: 36.5 cm Right Ankle: 29 cm Left Calf: 37.5 cm Left Ankle: 24.2 cm Neuro: Alert AND oriented x3, ENGINE RESEARCH ENGINEER II-XII grossly intact, reflexes 2+ and symmetric, [...] No acute fracture or bony destruction. ? Credit Professional: DWIGHT ? Transcribe Date/Time: Oct 14 2017 [...] No acute fracture or bony destruction. ? Credit Professional: DWIGHT ? Transcribe Date/Time: Oct 14 2017 [...] -- Week 5 Wound Bed (Post-debridement): 100% [place] % of Healthy tissue: Undermining: No Tunneling: No Tendon/bone exposed: NO Wound Edge/Margins: Well-defined wound edges and Edge attached to base Periwound Tissue: [place], dry and intact, No fluctuance, induration or [...] worsening symptoms. Luis Simons CNP Charge Capture: [id number] PROCEDURE Observed: 11/25/2017 Status: COMPLETED Source: [place] 11:30 AM CLINIC OTHER CAMPUS REPOSITORY O ID: [id number] Author: Luis Rodriguez) LOI Simons Service: (none) [...] applied. DAHLIA Observed: 11/25/2017 Status: COMPLETED Source: [place] 11:30 AM [facility] OTHER CAMPUS REPOSITORY Office Visit (PLWDMR) ROSA BELTRAN ([id number]) 1935 F Date Time Provider Department 11/25/17 11:30 AM LUIS SIMONS (LOI) PLWDMR During your visit today, we recorded the following information about you: Temperature Pulse Respiration Blood pressure 97.7 degrees 60/minute 16/minute 135/69 Luis Simons CNP, LINOTYPER 11/29/2017 2:26 PM Signed DATE OF VISIT: 11/25/2017 REASON FOR VISIT: Non-healing lower extremity wound. HISTORY OF PRESENT ILLNESS: Rosa Beltran is a 81 year old female who presents to the [facility] for further evaluation [...] followed by Dr. Jaskaran Chance at the [facility]. It was felt that her home support system was inadequate and that she may not have the resources in her home environment to appropriately care for her needs. In this regard, a social worker palliative care consultation had been recommended on several occassions, but patient apparently insisted on remaining in her home environment despite that there was thought that is may be less than optimal. The patient is here at the [facility] for a second opinion [...] hypothyroidism - Acute respiratory failure with hypoxia ([facility]) 09/30/2017 - Atrial fibrillation ([facility]) - CAD (coronary artery disease) Dr. Brenda [...] 10/08/2016 - COPD (chronic obstructive pulmonary disease) ([facility]) - Depressive disorder 12/29/2016 - Disruption of surgical wound 09/2015 Right tibia - Dorsalgia 12/29/2016 - Dyslipidemia - Gastric bypass status for obesity 12/29/2016 - Gastroesophageal reflux disease without esophagitis 10/08/2016 - HTN (hypertension) - Muscular weakness 12/29/2016 - Primary osteoarthritis involving multiple joints 12/29/2016 - Pure hypercholesterolemia - Rheumatoid arthritis ([facility]) 2007 - Sleep apnea - Stented coronary [...] tibia - TOTAL KNEE REPLACEMENT Right 2003 [facility] Gen. - TOTAL KNEE REPLACEMENT [...] Rubor of Dependency: Negative (Y) Positive (N) [place]in Examination: Comments: Measurements: Right Calf: 36.5 cm Right Ankle: 29 cm Left Calf: 37.5 cm Left Ankle: 24.2 cm Neuro: Alert ANDamp; oriented x3, ENGINE RESEARCH ENGINEER II-XII grossly intact, reflexes 2+ and symmetric, [...] No acute fracture or bony destruction. ? Credit Professional: DWIGHT ? Transcribe Date/Time: Oct 14 2017 [...] No acute fracture or bony destruction. ? Credit Professional: DWIGHT ? Transcribe Date/Time: Oct 14 2017 [...] -- Week 5 Wound Bed (Post-debridement): 100% [place] % of Healthy tissue: Undermining: No Tunneling: No Tendon/bone exposed: NO Wound Edge/Margins: Well-defined wound edges and Edge attached to base Periwound Tissue: [place], dry and intact, No fluctuance, induration or [...] worsening symptoms. Luis Simons CNP Charge Capture: [id number] Luis Simons CNP, LINOTYPER 11/29/2017 2:26 PM Signed A procedural pause [...] [facility] request. [phone] EDUCATION: The patient/family was instructed how to [...] following changes to the Wound Center at [phone] or go to the Emergency Department: ? [...] wound center - every visit Luis Simons LINOTYPER/mjl Referring Provider: MANI NEWMAN [[id number]] Allergies As of Date: 11/25/2017 (No Known [...] following changes to the Wound Center at [phone] or go to the Emergency Department: ? [...] to review vascular studies in her office 2/ Begin using compression pumps - run with 40-50 mmhg of compression twice daily (Call company to have pumps set to proper compression) Please bring your creams to the wound center - every visit Luis Simons LINOTYPER/mjl Visit Notes: >> Peter (Tory) TORY Jason [...] [facility] as patient's request. [phone] EDUCATION: The patient/family was instructed how to [...] Drug No Known Unknown [facility] Allergy/416 Allergies/J07832 Hospital 590795(SNOM 0388(RXNORM) Repository ED CT) NG/15191684 NO KNOWN [facility] 6(SNOMED ALLERGIES [facility]) Repository Drug NO KNOWN [facility] Class/62939 ALLERGIES Other [place] 1003(SNOMED Repository CT) ENCOUNTERS ENCOUNTERS ADMIT/DISCHARGE ACCOUNT NUMBER ADMITTING ENCOUNTER LOCATION SOURCE CLASS 11/03/2018 [id number] Yadi Doshi Ambulatory BMSBuilding [place] :BMS.[facility] Repository 11/03/2018 [id number] Yadi Doshi Ambulatory BMSBuilding [place] :BMS.[facility] Repository 11/03/2018 [id number] Yadi Doshi Ambulatory BMSBuilding Adrian :BMS.[facility] Repository 11/03/2018 [id number] Yadi Doshi Ambulatory BMSBuilding Adrian :BMS.[facility] Repository 11/03/2018 [id number] Yadi Doshi Ambulatory BMSBuilding Adrian :BMS.[facility] Repository 11/03/2018/ [id number] Yadi Doshi Inpatient [place] 019 [facility] lding:PCURo Repository om: [id number]: 1 11/03/2018 [id number] [facility] Repository VEB 11/01/2018 [id number] [facility] lding:MEDOU Repository TP 10/30/2018 [id number] [facility] lding:OLS.A Repository VEB 10/30/2018 [id number] [facility] lding:OLS.A Repository VEB 10/23/2018 [id number] [facility] lding:OLS.A Repository VEB 10/16/2018 [id number] [facility] lding:OLS.A Repository VEB 10/10/2018 [id number] [facility] lding:OLS.A Repository VEB 10/07/2018 [id number] [facility] lding:OLS.A Repository VEB 10/01/2018 [id number] Ashelfah, Ambulatory BMSBuilding Vale Ghasem :BMS.[facility] Repository 10/01/2018 [id number] [place], Ambulatory BMSBuilding Adrian Ghasem :BMS.[facility] Repository 10/01/2018 [id number] [place]helf[place], Ambulatory BMSBuilding Vale Ghasem :BMS.[facility] Repository 10/01/2018/ [id number] Ambulatory BMSBuilding [place] 018 :[facility] Repository 10/01/2018 [id number] Ashelfah, Ambulatory BMSBuilding Adrian Ghasem :BMS.[facility] Repository 10/01/2018 [id number] Ashelfah, Ambulatory BMSBuilding Adrian Ghasem :BMS.[facility] Repository 10/01/2018 [id number] Ashelfah, Ambulatory BMSBuilding Adrian Ghasem :BMS.[facility] Repository 10/01/2018/ [id number] Ashelf, Inpatient Adrian Adrian 018 Ghasem Encounter [facility] lding:PCURo Repository om: [id number]: 1 09/26/2018 [id number] [facility] lding:OLS.A Repository VEB 09/12/2018 [id number] [facility] lding:OLS.A Repository VEB 08/29/2018 [id number] [facility] lding:OLS.A Repository VEB 08/15/2018 [id number] [facility] lding:OLS.A Repository VEB 08/14/2018 [id number] Ambulatory ABuilding:[facility]rah [facility] Repository 07/31/2018/ [id number] Ambulatory ABuilding:Pinky Salomon DURoom: Health 0109Bed: A [facility] Repository 07/11/2018 [id number] Ambulatory ABuilding:Giselle [facility] Repository 07/11/2018/ [id number] URIEL RUIZ, Inpatient LBuilding:Giselle Salomon FLOWER Encounter TCHRoom: Health 4520Bed: A [facility] Repository 07/03/2018/ [id number] ANA DAVISON MD. Inpatient BBuilding:Simone Meza 018 CARLA W Encounter SURRoom: Health 0231Bed: A [facility] Repository 06/27/2018/ [id number] Ambulatory [place] 018 [facility] Main [place] Repository 06/27/2018/ [id number] Ambulatory [place] 018 [facility] [place] Repository 06/27/2018/ [id number] Ambulatory [place] 018 [facility] Main [place] Repository 06/22/2018/ [id number] Ambulatory [place] 018 Clinic Other [place] Repository 06/05/2018/ [id number] Emergency [place] 018 [facility] lding:ED Repository 06/04/2018 [id number] Ambulatory BMSBuilding [place] :[facility] Repository 05/25/2018/ [id number] Brody Sweet Chi Inpatient [place] 018 [facility] lding:TCURo Repository om: [id number]: 1 05/22/2018/ [id number] RITU, Inpatient [place] 018 [facility] Encounter [facility] Other [place] Repository 05/22/2018/ [id number] Ambulatory [place] 018 [facility] Other [place] Repository 05/22/2018 [id number] [facility] lding:OLS.A Repository 05/19/2018/ [id number] Ambulatory [place] 018 [facility] Other [place] Repository 05/16/2018 [id number] [facility] lding:OLS.A Repository 05/15/2018/ [id number] Ambulatory [place] 018 [facility] Other [place] Repository 05/11/2018 [id number] [facility] Rep[facility] 05/10/2018/ [id number] Ambulatory [place] 018 [facility] Other [place] Repository 05/10/2018 [id number] Ambulatory [facility] lding:OLS.A Repository 05/09/2018 [id number] Ambulatory [facility] lding:OLS.A Repository 05/05/2018 [id number] [facility] lding:OLS.A Repository 05/04/2018 [id number] [facility] lding:OLS.A Repository 05/03/2018 [id number] [facility] lding:OLS.A Repository 05/02/2018 [id number] [facility] lding:OLS.A Repository 05/01/2018 [id number] [facility] lding:OLS.A Repository 04/29/2018 [id number] [facility] lding:OLS.A Repository 04/28/2018 [id number] [facility] lding:OLS.A Repository 04/27/2018 [id number] [facility] lding:OLS.A Repository 04/20/2018/ [id number] XAVIER MERCADO Inpatient [place] 018 Encounter Clinic Other [place] Repository 04/20/2018/ [id number] Emergency BBuilding:[place] [address] Repository 04/14/2018/ [id number] Ambulatory [place] 018 [facility] Main [place] Repository 04/14/2018/ [id number] Ambulatory [place] 018 [facility] Main [place] Repository 04/14/[id number] [facility] Repository 04/11/2018/ [id number] Ambulatory [place] 018 Clinic Other [place] Repository 03/17/2018/ [id number] [facility] Inpatient [place] 018 , Encounter Clinic Other [facility] Repository 03/17/2018/ [id number] Ambulatory [place] 018 Clinic Other [place] Repository 03/13/2018/ [id number] Ambulatory [place] 018 [facility] [place] Repository 03/08/2018/ [id number] Ambulatory [place] 018 Clinic Other [place] Repository 03/06/2018 [id number] Ambulatory [place] [facility] Main [place] Repository 03/06/2018/ [id number] Ambulatory [place] 018 [facility] [place] Repository 02/24/2018/ [id number] NEREIDA RUIZ, Inpatient BBuilding:Simone [place] Encounter SURRoom: Health 0234Bed: A [facility] Repository 02/17/2018/ [id number] Ambulatory [place] 018 [facility] [place] Repository 02/14/2018/ [id number] Ambulatory [place] 018 Clinic Other [place] Repository 02/10/2018/ [id number] Ambulatory [place] 018 Clinic Other [place] Repository 02/07/2018/ [id number] Ambulatory [place] 018 [facility] [place] Repository 02/07/2018/ [id number] Ambulatory [place] 018 [facility] [place] Repository 02/07/2018/ [id number] Ambulatory [place] 018 Clinic Other [place] Repository 02/07/2018/ [id number] [facility]ulatory [place] [facility] Rep[facility] 02/03/2018/ [id number] Ambulatory [place] 018 [facility] [place] Repository 01/25/2018/ [id number] ANA DAVISON MD. Inpatient BBuilding:Simone Yan Encounter SURRoom: Health 0221Bed: A [facility] Repository 01/20/2018/ [id number] Ambulatory [place] 018 [facility] [place] Repository 01/13/2018 [id number] Ambulatory [place] Clinic Other [place] Repository 01/13/2018 [id number] Ambulatory [place] [facility] Main [place] Repository 01/13/2018/ [id number] Ambulatory [place] 018 Clinic Other [place] Repository 01/11/2018 [id number] Ambulatory [place] Clinic Other [place] Repository 01/11/2018/ [id number] Ambulatory [place] [facility] Repository 01/06/2018/ [id number] Ambulatory [place] 018 Clinic Other [place] Repository 01/06/2018/ [id number] Ambulatory AKRON [place] [facility]18 [facility]CAGWS Repository 12/30/2017/ [id number] Ambulatory [place] 018 [facility] Other [place] Repository 12/19/2017/ [id number] GALLITO CLARKE Inpatient [place] 018 [facility] Other [place] Repository 12/19/2017/ [id number] Ambulatory [place] 018 [facility] Other [place] Repository 12/12/2017 [id number] Ambulatory [facility] Main [place] Repository 12/12/2017/ [id number] Ambulatory [place] 018 [facility] Main [place] Repository 12/12/2017/ [id number] Ambulatory [place] 018 [facility] [place] Repository 12/05/2017/ [id number] Ambulatory [place] 018 [facility] Main [place] Repository 12/02/2017/ [id number] Ambulatory [place] 018 [facility] Main [place] Repository 12/02/2017/ [id number] Ambulatory [address] Main [place] Repository 11/25/2017 [id number] Ambulatory [facility] Main [place] Repository 11/25/2017/ [id number] Ambulatory [address] Other [place] Repository PAYERS PAYERS ENCOUNTER GUARANTOR PAYER SUBSCRIBER SOURCE 11/03/2018 ROSA L [id number] Primary ROSA L Adrian WABA AVEC/O Insurance:MEDICARE PART DESTINEEDAY[facility]IC HOSPITALMICHELLE: [facility] SHERON Petersen [facility] Number: [id number] River Memorial Hospital [id number] Repository [place] [address]Vci: Date:2018-11-03 () 11/03/2018 Secondary ROSA L Adrian Insurance:ANTHEMPolicy DESTINEEORYDOB: Community Number: [id number] Hospital [id number] Repository e Date:[id number] [address]TP: 11/03/2018 Tertiary Insurance:SELF NOT GIVENUNK [place] PAY INSURANCEPolicy Community Number: Effective Hospital Date:2018-11-03 Repository 11/03/2018 ROSA L [id number] Primary ROSA L Adrian MIBA AVEC/O Insurance:[place]ICARE PART [place]: [facility] SHERON Petersen [facility] Number: [id number] River Memorial Hospital [id number] Repository [place] [address]Hnd: Date:2018-11-03 () 11/03/2018 Secondary ROSA L [place] Insurance:ANTHEMPolicy DESTINEEORYDOB: Community Number: [id number] Hospital [id number] Repository e Date:2952-84-29JV [address] [address]TH: 11/03/2018 Tertiary Insurance:SELF NOT GIVENUNK [place] PAY INSURANCEPolicy Community Number: Effective Hospital Date:2018-11-03 Repository 11/03/2018 ROSA L [id number] Primary ROSA L Adrian WABASH AVEC/O Insurance:MEDICARE PART DESTINEEORYDOB: [facility] SHERON Nicola BPolicy Number: [id number] River Memorial Hospital [id number] Repository [place] [address]Bro: Date:2018-11-03 () 11/03/2018 Secondary ROSA L Adrian Insurance:ANTHEMPolicy DESTINEEORYDOB: Community Number: [id number] Hospital [id number] Repository e Date:0952-90-40[address] [address]IH: 11/03/2018 Tertiary Insurance:SELF NOT GIVENUNK Adrian PAY INSURANCEPolicy Community Number: Effective Hospital Date:2018-11-03 Repository 11/03/2018 ROSA L [id number] Primary ROSA L [place] WABASH AVEC/O Insurance:MEDICARE PART DESTINEEORYB: [facility] Number: [id number] River Memorial Hospital [id number] Repository [place] [address]Qgv: Date:2018-11-03 () 11/03/2018 Secondary ROSA L [place] Insurance:ANTHEMPolicy DESTINEEORYDOB: Community Number: [id number] Hospital [id number] Repository e Date:9506-10-85[address]V[place], [place] [address]XY: 11/03/2018 Tertiary Insurance:SELF NOT GIVENUNK Adrian PAY INSURANCEPolicy Community Number: Effective Hospital Date:2018-11-03 Repository 11/03/2018 ROSA L [id number] Primary ROSA L [place] WABASH AVEC/O Insurance:MEDICARE PART DESTINEEORYDOB: [facility] SHERON Petersen BPolicy Number: [id number] River Memorial Hospital [id number] Repository [place] [address]Ntr: Date:2018-11-03 () 11/03/2018 Secondary ROSA L [place] Insurance:ANTHEMPolicy DESTINEEORYDOB: Community Number: [id number] Hospital [id number] Repository e Date:6025-03-79PN [address] [place] [address]TU: 11/03/2018 Tertiary Insurance:SELF NOT GIVENUNK [place] PAY INSURANCEPolicy Community Number: Effective Hospital Date:2018-11-03 Repository 11/03/2018 ROSA L Primary ROSA L [place] [id number] E Insurance:MEDICARE PART DESTINEEAULTMAN ALLIANCE COMMUNITY HOSPITALB: [facility] BPolicy Number: [id number] [facility] [id number] Repository [address] OF Date:2018-11-03 [place], [place] [address]Yvk: () 11/03/2018 Secondary ROSA L Adrian Insurance:ANTHEMPolicy DEVINDOB: Community Number: [id number] Hospital [id number] Repository e Date:2129-79-38JR [address] [place] [address]CZ: 11/03/2018 Tertiary Insurance:SELF NOT GIVENUNK [place] PAY INSURANCEPolicy Community Number: Effective Hospital Date:2018-11-03 Repository 11/03/2018 ROSA L [id number] Primary ROSA L Adrian WABASH AVEC/O Insurance:MEDICARE PART DESTINEEORYB: Critical access hospital Nicola BPolicy Number: [id number] River Memorial Hospital [id number] Repository [place] [address]Dhs: Date:2018-11-03 () 11/03/2018 Secondary ROSA L Adrian Insurance:ANTHEMPolicy DESTINEEORYDOB: Community Number: [id number] Hospital [id number] Repository e Date:5648-50-83FM [address], [place] [address]FE: 11/03/2018 Tertiary Insurance:SELF NOT GIVENUNK [place] PAY INSURANCEPolicy Community Number: Effective Hospital Date:2018-11-03 Repository 11/01/2018 ROSA L Primary ROSA L Vale [id number] E Insurance:ANTHEMPolicy DESTINEEORYDOB: [facility] Number: [id number] Memorial [id number] Repository [place], [place] e Date:7586-84-43[address] [address]Kjf: (055) 857236ODILPT[place], [place] [phone] () [address]PN: 11/01/2018 Secondary ROSA L Adrian Insurance:MEDICARE PART SOLANGEB: [facility] A BPolicy Number: [id number] Hospital [id number] Repository Date:2018-10-30 11/01/2018 Tertiary Insurance:SELF NOT GIVENUNK Adrian PAY INSURANCEPolicy Community Number: Effective Hospital Date:2018-10-30 Repository 10/30/2018 ROSA L [id number] Primary Insurance:SELF NOT GIVENUNK Adrian WABASH AVEC/O PAY INSURANCEPolicy Critical access hospital Number: Effective [facility], Date:2018-10-30 Repository [place] [address]Hrb: () 10/30/2018 ROSA L [id number] Primary ROSA L Vale WABASH AVEC/O Insurance:MEDICARE PART DESTINEEORYDOB: Critical access hospital A BPolicy Number: [id number] River Memorial Hospital [id number] Repository [place] [address]Ncb: Date:2018-10-30 () 10/30/2018 Secondary ROSA L Vale Insurance:ANTHEMPolicy DESTINEEORYDOB: Community Number: [id number] Mexico Behavioral Health Institute at Las [id number] Repository e Date:7863-51-01FE [address] [place] [address]LE: 10/30/2018 Tertiary Insurance:SELF NOT GIVENUNK [place] PAY INSURANCEPolicy Community Number: Effective Hospital Date:2018-10-30 Repository 10/23/2018 ROSA L Primary ROSA L Adrian [id number] E Insurance:MEDICARE PART DEVINDOB: [facility] BPolicy Number: [id number] [facility] [id number] Repository [address] OF Date:2018-10-23 [place], [place] [address]Qei: (WJ) 10/23/2018 Secondary ROSA L [place] Insurance:ANTHEMPolicy GREGORYDOB: Community Number: [id number] Mexico Behavioral Health Institute at Las [id number] Repository e Date:7329-21-00[address], [place] [address]LV: 10/23/2018 Tertiary Insurance:SELF NOT GIVENUNK Adrian PAY INSURANCEPolicy Community Number: Effective Hospital Date:2018-10-23 Repository 10/16/2018 ROSA L [id number] Primary ROSA L [place] [address]/O Insurance:MEDICARE PART SOLANGEB: [facility] BPolicy Number: [id number] River Memorial Hospital [id number] Repository [place] [address]Nzr: Date:2018-10-16 (PF) 10/16/2018 Secondary ROSA L [place] Insurance:ANTHEMPolicy GREGORYDOB: Community Number: [id number] Mexico Behavioral Health Institute at Las [id number] Repository e Date:4969-20-23IW [address]FFDVPLH, [place] [address]WB: 10/16/2018 Tertiary Insurance:SELF NOT GIVENUNK [place] PAY INSURANCEPolicy Community Number: Effective Hospital Date:2018-10-16 Repository 10/10/2018 ROSA L Primary ROSA L Vale [id number] E Insurance:MEDICARE PART DESTINEEORYB: [facility] BPolicy Number: [id number] [place] [id number] Repository [place] Date:2018-10-10 [address]Igs: () 10/10/2018 Secondary ROSA L [place] Insurance:ANTHEMPolicy GREGORYDOB: Community Number: [id number] [id number] Repository e Date:8654-16-16CW [address], [place] [address]DX: 10/10/2018 Tertiary Insurance:SELF NOT GIVENUNK Adrian PAY INSURANCEPolicy Community Number: Effective Hospital Date:2018-10-10 Repository 10/07/2018 ROSA L Primary ROSA L Vale [id number] E Insurance:MEDICARE PART GREGORYDOB: [facility] BPolicy Number: [id number] [place] [id number] Repository [place] Date:2018-10-07 73757Xny: () 10/07/2018 Secondary ROSA L Vale Insurance:ANTHEMPolicy GREGORYDOB: Community Number: [id number] Hospital [id number] Repository e Date:4289-65-03LA [address]OF[place], [place] [address]ZG: 10/07/2018 Tertiary Insurance:SELF NOT GIVENUNK Adrian PAY INSURANCEPolicy Community Number: Effective Hospital Date:2018-10-07 Repository 10/01/2018 ROSA L Primary ROSA L Vale [id number] E Insurance:MEDICARE PART GREGORYDOB: [facility] BPolicy Number: [id number] [id number] Repository [place] Date:2018-10-01 29237Ylu: () 10/01/2018 Secondary ROSA L Adrian Insurance:ANTHEMPolicy GREGORYDOB: Community Number: [id number] Hospital [id number] Repository e Date:2095-56-90WR [address]QRWAPVO, [place] [address]XP: 10/01/2018 Tertiary Insurance:SELF NOT GIVENUNK Adrian PAY INSURANCEPolicy Community Number: Effective Hospital Date:2018-10-01 Repository 10/01/2018 ROSA L Primary ROSA L Adrian [id number] E Insurance:MEDICARE PART GREGORYDOB: [facility]: [id number] Valley Hospital [id number] Repository [place] Date:2018-10-01 09695Gvr: () 10/01/2018 Secondary ROSA L Vale Insurance:ANTHEMPolicy GREGORYDOB: Community Number: [id number] Hospital [id number] Repository e Date:9126-26-01IE [address] [place] [address]OZ: 10/01/2018 Tertiary Insurance:SELF NOT GIVENUNK Vale PAY INSURANCEPolicy Community Number: Effective Hospital Date:2018-10-01 Repository 10/01/2018 ROSA L Primary ROSA L Adrian [id number] E Insurance:MEDICARE PART GREGORYDOB: [facility] BPolicy Number: [id number] Valley Hospital [id number] Repository [place] Date:2018-10-01 20322Lqw: () 10/01/2018 Secondary ROSA L Adrian Insurance:ANTHEMPolicy DESTINEEORYDOB: Community Number: [id number] Hospital [id number] Repository e Date:8698-71-84WT [address] [place] [address] 527[address]LD: 10/01/2018 Tertiary Insurance:SELF NOT GIVENUNK Vale PAY INSURANCEPolicy Community Number: Effective Hospital Date:2018-10-01 Repository 10/01/2018 ROSA L Primary ROSA L Vale [id number] E Insurance:MEDICARE PART GREGORYDOB: [facility] Number: [id number] Valley Hospital [id number] Repository [place] Date:2018-10-01 64244Kkl: () 10/01/2018 Secondary ROSA L Adrian Insurance:ANTHEMPolicy GREGORYDOB: Community Number: [id number] Mexico Behavioral Health Institute at Las [id number] Repository e Date:2139-61-75ZH [address] [place] [address] 66[address]CC: 10/01/2018 Tertiary Insurance:SELF NOT GIVENUNK Vale PAY INSURANCEPolicy Community Number: Effective Hospital Date:2018-10-01 Repository 10/01/2018 ROSA L [id number] Primary ROSA L Vale E [place] Insurance:MEDICARE PART GREGORYDOB: [facility] BPolicy Number: [id number] [id number] Repository [address]Qmx: 330) Date:2018-10-01 [phone] () 10/01/2018 Secondary ROSA L Vale Insurance:ANTHEMPolicy GREGORYDOB: Community Number: [id number] [facility] [id number] Repository e Date:7521-11-84UD [address], [place] [address]CV: 10/01/2018 Tertiary Insurance:SELF NOT GIVENUNK Vale PAY INSURANCEPolicy Community Number: Effective Hospital Date:2018-10-01 Repository 10/01/2018 ORSA L Primary ROSA L Adrian [id number] E Insurance:MEDICARE PART GREGORYDOB: [facility] BPolicy Number: [id number] Valley Hospital [id number] Repository [place] Date:2018-10-01 10796Qsw: () 10/01/2018 Secondary ROSA L Adrian Insurance:ANTHEMPolicy GREGORYDOB: Community Number: [id number] Hospital [id number] Repository e Date:7145-94-33VK [address]ZNIXAJJ, [place] [address]QP: 10/01/2018 Tertiary Insurance:SELF NOT GIVENUNK Vale PAY INSURANCEPolicy Community Number: Effective Hospital Date:2018-10-01 Repository 10/01/2018 ROSA L Primary ORSA L Vale [id number] E Insurance:MEDICARE PART GREGORYDOB: [facility] Number: [id number] Valley Hospital [id number] Repository [place] Date:2018-10-01 42560Nkn: () 10/01/2018 Secondary ROSA L Adrian Insurance:ANTHEMPolicy DESTINEEORYDOB: Community Number: [id number] Hospital [id number] Repository e Date:8312-11-27RW [address] [place] [address] 005[address]VV: 10/01/2018 Tertiary Insurance:SELF NOT GIVENUNK Adrian [facility] Number[facility] Effective Hospital Date:2018-10-01 Repository 10/01/2018 ROSA L Primary ROSA L Vale [id number] E Insurance:MEDICARE PART [facility] Number: [id number] Ville [id number] Repository [place] Date:2018-10-01 41589Njt: () 10/01/2018 Secondary ROSA L Adrian Insurance:ANTHEMPolicy DEVINDOB: Community Number: [id number] Hospital [id number] Repository e Date:3334-86-44KF [address] [place] [address] 636[address]AT: 10/01/2018 Tertiary Insurance:SELF NOT GIVENUNK Adrian [facility] Number: Effective Hospital Date:2018-10-01 Repository 09/26/2018 ROSA L [id number] Primary Insurance:SELF NOT GIVENUNK Adrian Hutchinson [facility] Effective [facility] [place] [id number]: Date:2018-09-26 Repository () 09/12/2018 ROSA L [id number] Primary Insurance:SELF NOT GIVENUNK Vale Hutchinson [facility], Number: Effective [place] [id number]: Date:2018-09-12 Repository () 08/29/2018 ROSA [id number] Primary Insurance:SELF NOT GIVENUNK Vale Martin [facility] Effective Hospital [place] [id number]: Date:2018-08-29 Repository () 08/15/2018 ROSANicola BELTRAN121 Primary Insurance:SELF NOT GIVENUNK Vale Moransh [facility] Number: Effective Hospital [place] [id number]: Date:2018-08-15 Repository (HP) 08/14/2018 [id number], Insurance:MEDICARE PART SOLANGEB: [facility] [address]Odt: BPolicy Number: [id number] Repository [id number] [place] () Date:2018-08-09 - [place] 2434-61-13Dgdc [address]Fyl: 330) Name:[facility] [phone] [facility] ()Tel: (599) [address] [address]Qxwpdhoff, [place] 000-0000 () 16[address]ZL: 08/14/2018 Secondary [facility] Insurance:ELSIE JACKSON: [facility] [id number] Repository Number: WABASH [id number] [facility] Date:2018-08-09 622[address]Mnf: [phone]) [id number] Name:[facility] [phone] [address]Ajccfou, [place] ()Tel: [phone]) [phone]: [phone] (WP) 07/31/2018 [address] [id number] Primary Insurance:SELF [address] Number: SOLNAGEB: [facility] [address]Zzu: Effective [id number] Repository Date:2018-07-26 WABA () 3533-55-36Bsch Name:[address] [place] [address] 29[address]Yss: (HP) (WP) 07/11/2018 [facility] Primary Insurance:SELF [facility] CAREDOB: PAYPolicy Number: MANUEL: [facility] [id number] Effective [id number] Repository [facility] [facility], Date:2018-07-11 [facility] [address]Fbd: 3167-29-16Pzdm Name:[address] [place] [address] 99518Yol: (330) (HP) [phone] (HP) (WP) 07/11/2018 ROSA L Primary [facility] SOLANGEB: Insurance:MEDICARE PART DEVINMICHELLE: [facility] A INSCOPolicy Number: [id number] Repository [place] [id number], [place] Date:2017-05-14 - [place] [address]~UBAJUMXJ26 5804-92-62Bwhk 490[address]Gwp: 330) @[facility]: Name:[facility] [phone] [address] (HP)Tel: (000) (HP)Tel: (999) 533[address]ChbeudygCARO, [place] 000-0000 (WP) [phone] (WP) [address]KM: 07/11/2018 Secondary [facility] Insurance:MEDICARE PART MANUEL: [facility] B INSCOPolicy Number: [id number] Repository [id number] [place] Date:2017-05-14 - [place] 6054-07-83Rfgn [address]Qjb: (330) Name:[facility] [phone] Administrators LLCPO (HP)Tel: (000) [address] [address]Bxwwkglgw, [place] 000-0000 (WP) [address]JZ: 07/11/2018 Tertiary [facility] Insurance:ELSIE JACKSON: [facility] [id number] Repository Number: ROB [id number] [place], [place] e Date:2017-05-14 [address]Wpq: (963) 6296-91-56Lysv Name:[facility] [phone] [address]Guzpicx, [place] (HP)Tel: [phone]) 31962WP: 000-0000 (WP) 07/03/2018 [facility]A L [facility] Insurance:[facility]ICARE PART [facility]: [facility] APolicy Number: [id number] Repository SRIKANTH [id number] [place], [place] Date:2018-07-03 [place] [address]~AURRNJHD44 7526-36-43Wxfz 68846Hqz: 330) @[facility]el: Name:[facility] [phone] [address] (HP)Tel: (000) (HP)Tel: (999) 076[address]Tdtjfuzc, [place] 000-0000 (WP) [phone] (WP) [address]CO: 07/03/2018 Secondary [facility] Insurance:MEDICARE PART [facility]: [facility] BPolicy Number: [id number] Repository [id number] [place] Date:2018-07-03 [place], [place] 1088-18-11Wijw [address]Jeu: (330) Name:[facility] [phone] Administrators LLCPO (HP)Tel: (000) [address] [address]Rainkyyvd, [place] 000-0000 (WP) 14[address]LU: 07/03/2018 Tertiary [facility] Insurance:ELSIE [place]EC[place]: [facility] [id number] Repository Number: ROB [id number] [place], [place] e Date:2018-07-03 290[address]Ydh: 330 4474-88-03Avqo Name:[facility] [phone] [place] [address] ()Tel: ([phone]) 06262QL: 000-0000 () 06/05/2018 ROSA L [id number] Primary ROSA L Vale Hutchinson Insurance:MEDICARE PART GREGORYDOB: [facility] BPolicy Number: [id number] [place] [address]See: [id number] Repository Date:2018-06-05 () 06/05/2018 Secondary ROSA L Vale Insurance:ANTHEMPolicy GREGORYDOB: Community Number: [id number] Hospital [id number] Repository e Date:8802-60-98LV [address] [place] [address] 77365JJ: 06/05/2018 Tertiary Insurance:SELF NOT GIVENUNK Vale PAY INSURANCEPolicy Community Number: Effective Hospital Date:2018-06-05 Repository 06/04/2018 ROSA L [id number] Primary ROSA L Adrian Hutchinson Insurance:MEDICARE PART GREGORYDOB: [facility] BPolicy Number: [id number] [place] [address]Rcs: [id number] Repository Date:2018-06-05 () 06/04/2018 Secondary ROSA L Vale Insurance:ANTHEMPolicy GREGORYDOB: Community Number: [id number] Hospital [id number] Repository e Date:4778-38-21DM [address] [place] [address] 89138NA: 06/04/2018 Tertiary Insurance:SELF NOT GIVENUNK Vale PAY INSURANCEPolicy Community Number: Effective Hospital Date:2018-06-04 Repository 05/25/2018 ROSA L [id number] Primary ROSA L Vale Hutchinson Insurance:MEDICARE PART GREGORYDOB: [facility] BPolicy Number: [id number] Hospital [place] [address]Div: [id number] Repository Date:2018-05-25 () 05/25/2018 Secondary ROSA L Vale Insurance:ANTHEMPolicy DEVINDOB: [facility] Number: [id number] Hospital [id number] Repository e Date:6548-31-63DM [address]TRKJRYZ, [place] [address]ZY: 05/25/2018 Tertiary Insurance:SELF NOT GIVENUNK Adrian PAY [facility] Number: Effective Hospital Date:2018-05-25 Repository 05/22/2018 ROSANicola DE Primary Insurance:SELF NOT GIVENUNK Vale Hutchinson [facility] [place] [id number]: Date:2018-05-22 Repository () 05/16/2018 Rosa De Primary Insurance:SELF NOT GIVENUNK Adrian Hutchinson [facility]Y [facility] Number: [facility] [place] [id number]: Date:2018-05-16 Repository () 05/11/2018 Rosanicola De Primary Insurance:SELF NOT GIVENUNK Vale Hutchinson [facility]Y [facility] Number: Effective [place] [id number]: Date:2018-05-11 Repository () 05/10/2018 ROSA DE Primary Insurance:SELF NOT GIVENUNK Adrian Hutchinson [facility]Y [facility] Number: Effective [place] [id number]: Date:2018-05-10 Repository () 05/09/2018 ROSA DE Primary Insurance:SELF NOT GIVENUNK Vale Hutchinson [facility]Y [facility] Number: [facility] [place] [id number]: Date:2018-05-09 Repository () 05/05/2018 Hartsnicola De Primary Insurance:SELF NOT GIVENUNK Adrian Hutchinson [facility]Y [facility] Number: [facility] [place] [id number]: Date:2018-05-05 Repository () 05/04/2018 ROSANicola DE Primary Insurance:SELF NOT GIVENUNK Adrian Hutchinson PAY [facility] Number: Effective [place] [id number]: Date:2018-05-04 Repository () 05/03/2018 Hartsnicola Beltran121 Primary Insurance:SELF NOT GIVENUNK Vale Hutchinson [facility]Y [facility] Number: [facility] [place] [id number]: Date:2018-05-03 Repository () 05/02/2018 Hartsnicola Beltran121 Primary Insurance:SELF NOT GIVENUNK Vale Hutchinson PAY [facility] Number: [facility] [place] [id number]: Date:2018-05-02 Repository (HP) 05/01/2018 Hartsnicola Beltran121 Primary Insurance:SELF NOT GIVENUNK Adrian Hutchinson [facility]Y [facility] Number: Effective [place] [id number]: Date:2018-05-01 Repository () 04/29/2018 Hartsnicola Beltran121 Primary Insurance:SELF NOT GIVENUNK Vale Hutchinson [facility]Y [facility] Number: Effective [place] [id number]: Date:2018-04-29 Repository () 04/28/2018 Rosanicola Beltran121 Primary Insurance:SELF NOT GIVENUNK Adrian Hutchinson [facility]Y [facility] Number: [place] [id number]: Date:2018-04-28 Repository () 04/27/2018 Rosanicola Beltran121 Primary Insurance:SELF NOT GIVENUNK Vale Hutchinson [facility]Y [facility] Number: [facility] [place] [id number]: Date:2018-04-27 Repository (HP) 04/20/2018 ROSA L Primary [place] Giselle [facility]: Insurance:MEDICARE PART DESTINEEAULTMAN ALLIANCE COMMUNITY HOSPITALVerónica: [facility] [id number] BPolicy Number: [id number] Repository [place] [id number], [place] Date:2018-04-20 - [place] [address]~AIXHNCLL82 6006-56-40Hdhn [address]Enc: (377) @[facility].[place]: Name:[facility] [phone] Administrators LLCPO (HP)Tel: (000) (HP)Tel: (999) [address] [address]Tqpaiywwk, [place] 000-0000 (WP) [phone] (WP) 486[address]SB: 04/20/2018 Secondary ROSA L [facility] Insurance:ELSIE PATEL [facility]: [facility] [id number] Repository Number: [place] [id number] [place], [place] e Date:2018-04-20 [address]Erd: (880) 0562-03-40Fwvd Name:O [phone] [place] [address] (HP)Tel: (218) [phone]: 000-0000 (WP) 04/14/2018 ROSA L Primary ROSA L [facility] CROWN POINTDOB: Insurance:MEDICARE A [facility]: [facility] AND BPolicy Number: [id number] Repository [place] [id number] [place], [place] Date: [address]Xdn: (HP) 04/14/2018 Secondary ROSA L [facility] Insurance:BLUE CARD [facility]RAYB: [facility] [id number] Repository Number: [id number] e Date: 02/24/2018 ROSA L Primary ROSA L [facility]: Insurance:MEDICARE PART [facility]B: [facility] APolicy Number: [id number] Repository [place] [id number] [place], [place] Date:2018-02-24 [place] [address]~CUUPTEWB19 8592-06-97Ozsv [address]Nwz: (208) @[facility].[place]: Name:[facility] [phone] [address] (HP)Tel: (000) (HP)Tel: (654) [phone], [place] 000-0000 (WP) [phone] (WP) [address]HB: 02/24/2018 Secondary ROSA L [facility] Insurance:MEDICARE PART [facility]: [facility] BPolicy Number: [id number] Repository [id number] [place] Date:2018-02-24 - [place], [place] 3613-55-41Kjlg [address]Rqd: (330) Name:[facility] [phone] Administrators LLCPO (HP)Tel: (000) [address] [address]Oytufnvec, [place] 000-0000 (WP) [address]MG: 02/24/2018 Tertiary ROSA L [facility] Insurance:ELSIE PATEL [facility]: [facility] [id number] Repository Number: [place] [id number] [place], [place] e Date:2018-02-24 160[address]Ebi: (866) 5886-15-22Lttc Name:[facility] [phone] [place] [address] ()Tel: 000) 02331WP: 000-0000 (WP) 02/07/2018 ROSA L Primary ROSA L [facility] CROWN POINTDOB: Insurance:MEDICARE A [facility]: [facility] AND BPolicy Number: [id number] Repository [place] [id number] [place], [place] Date: [address]Ebt: (HP) 02/07/2018 Secondary ROSA L [facility] Insurance:JORGE AMADOR [facility]: [facility] [id number] Repository Number: [id number] e Date: 01/25/2018 ROSA L Primary ROSA L [facility] SystemORYD[facility]: Insurance:MEDICARE PART [facility]: [facility] APolicy Number: [id number] Repository [place] [id number] [place] Date:2018-01-25 [place] [address]~AUWWCRCX84 1241-32-92Hpyr 59[address]Gdb: 330) @[facility].MICHAELLEel: Name:Emilil Code [phone] [address] (HP)Tel: (000) (HP)Tel: 999 028940Axhxmhvb, [place] 000-0000 (WP) [phone] (WP) [address]BX: 01/25/2018 Secondary ROSA L [facility] Insurance:ELSIE JACKSON: [facility] [id number] Repository Number: [place] [id number] [place], [place] e Date:2018-01-25 [address]Ydw: 330 3236-26-38Obmz Name:[facility] [phone] [place] [address] (HP)Tel: (000) 17099WP: 000-0000 (WP) 01/25/2018 Tertiary ROSA L [facility] Insurance:MEDICARE PART [place]: [facility] BPolicy Number: [id number] Repository [id number] [place] Date:2018-01-25 - [place], [place] 4234-92-53Upgf [address]Kbw: (330) Name:[facility] 683-[facility]5 Administrators LLCPO (HP)Tel: (000) [address] [address]Qvltnasrj, [place] 000-0000 (WP) [address]QV: 01/11/2018 ROSA L Primary ROSA L [facility] DEVINDOB: Insurance:MEDICARE A [place]EC[place]: Health System AND BPolicy Number: [id number] Repository [place] [id number] [place], [place] Date: [address]Ihs: (HP) 01/11/2018 Secondary ROSA L [facility] Insurance:BLUE MARJORIE FELIPEDAYTON OSTEOPATHIC HOSPITALB: [facility] [id number] Repository Number: [id number] e Date: 01/06/2018 ROSA L Primary ROSA L [facility] SOLANGEB: Insurance:MEDICARE A SOLANGEB: [facility] AND BPolicy Number: [id number] Repository [place] [id number] [place], [place] Date: [address]Mmd: () 01/06/2018 Secondary ROSA L [facility] Insurance:BLUE CARD MANUEL: [facility] [id number] Repository Number: [id number] e Date:
== END ==
LOC: OLS.AVEB 04:00
PROVIDERS: Visit Provider Family Medicine
DX: D64.9 Anemia, unspecified (principal)
CPT/HCPCS: 36415; 80048; 85027

== ENCOUNTER → 2018-10-23 04:00 | Outpatient (REF) | payer MEDICARE, BC, SELFPAY ==
[2018-10-01 14:34] VITALS: BMI 37.0
[2018-10-23 07:45] LABS: Hematocrit 27.1 % (37-47); Hemoglobin 7.8 g/dl (12.0-15.0); Mean Corp Hgb Conc 28.8 g/gl (32-36); Mean Corpuscular Hgb 28.2 pg (27.0-32.0); Mean Corpuscular Volume 97.8 fL (81-99); Mean Platelet Vol. 10.5 fl (6.2-12.0); Platelet Count 226 K/mm3 (150-450); RBC Distribution Width CV 16.6 % (11.6-14.6); RBC Distribution Width SD 56.4 fl (35.1-43.9); Red Blood Count 2.77 M/mm3 (4.2-5.4); White Blood Count 6.4 K/mm3 (4.4-11.0)
[2018-10-23 07:53] LABS: Anion Gap 4 (5-15); BUN 28 mg/dL (7-18); BUN/Creat Ratio 24.8 RATIO (10-20); Chloride 99 mmol/L (98-107); Creatinine, Serum 1.13 mg/dL (0.55-1.02); EST Glomerular Filtration Rate 49 mL/min (>60); Est Glom Filt Rate - Afr Amer 59 mL/min (>60); Glucose 78 mg/dL (74-106); Potassium 4.3 mmol/L (3.5-5.1); Sodium Level 137 mmol/L (136-145)
[2018-10-23 07:59] LABS: Scan Indicated on CBC? Y/N NO
[2018-11-03 13:46] VITALS: BMI 41.3
== END ==
LOC: OLS.AVEB 04:00
PROVIDERS: Visit Provider Family Medicine
DX: I10 Essential (primary) hypertension (principal)
CPT/HCPCS: 36415; 80048; 85027

== ENCOUNTER → 2018-10-30 04:00 | Outpatient (REF) | payer MEDICARE, BC, SELFPAY ==
[2018-10-01 14:34] VITALS: BMI 37.0
[2018-10-30 07:26] LABS: Hematocrit 26.1 % (37-47); Hemoglobin 7.7 g/dl (12.0-15.0); Mean Corp Hgb Conc 29.5 g/gl (32-36); Mean Corpuscular Volume 94.9 fL (81-99); Mean Platelet Vol. 9.8 fl (6.2-12.0); Platelet Count 228 K/mm3 (150-450); RBC Distribution Width CV 17.3 % (11.6-14.6); RBC Distribution Width SD 59.7 fl (35.1-43.9); Red Blood Count 2.75 M/mm3 (4.2-5.4); White Blood Count 8.8 K/mm3 (4.4-11.0)
[2018-10-30 07:28] LABS: Scan Indicated on CBC? Y/N NO
[2018-10-30 07:33] LABS: Anion Gap 8 (5-15); BUN 38 mg/dL (7-18); BUN/Creat Ratio 25.3 RATIO (10-20); Calcium,Total 7.9 mg/dL (8.5-10.1); Chloride 98 mmol/L (98-107); EST Glomerular Filtration Rate 35 mL/min (>60); Est Glom Filt Rate - Afr Amer 43 mL/min (>60); Glucose 88 mg/dL (74-106); Potassium 4.3 mmol/L (3.5-5.1); Sodium Level 138 mmol/L (136-145)
[2018-11-03 13:46] VITALS: BMI 41.3
== END ==
LOC: OLS.AVEB 04:00
PROVIDERS: Visit Provider Family Medicine
DX: D64.9 Anemia, unspecified (principal); J44.9 Chronic obstructive pulmonary disease, unspecified; I10 Essential (primary) hypertension; E78.5 Hyperlipidemia, unspecified
CPT/HCPCS: 36415; 80048; 85027

== ENCOUNTER → 2018-10-30 15:20 | Outpatient (REF) | payer MEDICARE, MEDICAID, SELFPAY ==
[2018-10-30 14:38] VITALS: BMI 39.2
[2018-11-03 13:46] VITALS: BMI 41.3
== END ==
LOC: OLS.AVEB 15:20
PROVIDERS: Visit Provider Family Medicine
DX: D64.9 Anemia, unspecified (principal); E78.5 Hyperlipidemia, unspecified
CPT/HCPCS: 86920; 86922

== ENCOUNTER → 2018-11-01 08:50 | Outpatient (CLI) | payer MEDICARE, BC, SELFPAY ==
[2018-10-30 14:38] VITALS: BMI 39.2
[2018-11-01] VITALS (7 sets, daily range): BP systolic 92–105; BP diastolic 59–78; PULSE 63–77; RESP 16–18; TEMP 36.4–36.8; BMI 51.5
== END ==
PROVIDERS: Family Provider Internal Medicine; PCP Internal Medicine; Referring Provider Nurse Practitioner Family; Visit Provider Nurse Practitioner Family
DX: D64.9 Anemia, unspecified (principal); L08.9 Local infection of the skin and subcutaneous tissue, unspecified; E78.5 Hyperlipidemia, unspecified
CPT/HCPCS: 36415; 36430; 86850; 86900; 86920; 86922; J7040; P9040; A4216

== ENCOUNTER → 2018-11-03 05:00 | Outpatient (REF) | payer MEDICARE, BC, SELFPAY ==
[2018-11-01 09:00] VITALS: BMI 51.5
[2018-11-03 07:32] LABS: Absolute Lymphocyte Count 2.58 X10^3/ul (0.83-4.51); Absolute Neutrophil Count 23.2 X10^3/uL (2.0-7.7); Basophil# 0.02 X10^3/uL; Basophil% 0.1 % (0-1); Eosinophil# 0.15 X10^3/uL; Eosinophils% 0.6 % (0-5); Hematocrit 30.4 % (37-47); Hemoglobin 9.1 g/dl (12.0-15.0); Lymphocyte # 2.58 X10^3/ul (4.0); Lymphocyte % 9.7 % (19-41); Mean Corp Hgb Conc 29.9 g/gl (32-36); Mean Corpuscular Hgb 28.2 pg (27.0-32.0); Mean Corpuscular Volume 94.1 fL (81-99); Mean Platelet Vol. 9.6 fl (6.2-12.0); Monocyte# 0.53 X10^3/uL; Neutrophil # 23.15 X10^3/uL (2.7-7.7); Neutrophil % 87.2 % (47-70); Platelet Count 259 K/mm3 (150-450); RBC Distribution Width CV 17.4 % (11.6-14.6); RBC Distribution Width SD 59.2 fl (35.1-43.9); Red Blood Count 3.23 M/mm3 (4.2-5.4); White Blood Count 26.5 K/mm3 (4.4-11.0)
[2018-11-03 07:33] LABS: Differential Indicated SCAN CRITERIA MET; POSITIVE COUNT NO; POSITIVE DIFFERENTIAL YES; POSITIVE MORPHOLOGY NO
[2018-11-03 13:46] VITALS: BMI 41.3
== END ==
LOC: OLS.AVEB 05:00
PROVIDERS: Visit Provider Family Medicine
DX: D64.9 Anemia, unspecified (principal)
CPT/HCPCS: 36415; 85025

== ENCOUNTER 2018-11-03 10:31 | Inpatient (IN) | payer MEDICARE, BC, SELFPAY ==
[2018-11-01 09:00] VITALS: BMI 51.5
[2018-11-03] VITALS (21 sets, daily range): BP systolic 92–124; BP diastolic 34–70; PULSE 78–99; RESP 13–26; TEMP 36.5–39.1; O2SAT 85–100; BMI 43.4; BMI 41.3
--- NOTE | 2018-11-03 10:39 | RAD_ITS ---
STUDY: X-RAY CHEST REASON FOR EXAM: Female, 82 years old. Cough and labored breathing. TECHNIQUE: Single AP portable view of the chest. COMPARISON: October 04, 2018 FINDINGS: Cardiac monitoring leads are present. The lungs are underexpanded compared to previous study. There is suggestion for patchy right upper lobe, right basilar and left basilar airspace disease and/or atelectasis. There is no demonstrated pleural abnormality. There is moderate cardiac enlargement. There is a prominence of the right hilar area which may partly be related to the pulmonary artery. There is prominence of the pulmonary hilar arteries without peripheral pulmonary vascular congestion, suggesting pulmonary hypertension. There is atherosclerotic calcification of the aortic arch with tortuosity. There is moderate curvature of the thoracic spine with convexity towards the right. There are degenerative changes of both shoulders. Surgical clips are visible in the left upper quadrant. RAD/Chest 1 View (Portable) IMPRESSION: Cardiomegaly and persistent evidence for pulmonary congestion and airspace consolidation. Electronically Signed: Susan Buenrostro MD at 11:26 EST , Service support ,
--- NOTE | 2018-11-03 10:39 | EKG12_ITS ---
Test Reason : ALTERED LOC Blood Pressure : / mmHG Vent. Rate : 097 BPM Atrial Rate : 097 BPM P-R Int : 000 ms QRS Dur : 080 ms QT Int : 364 ms P-R-T Axes : 000 143 201 degrees QTc Int : 462 ms Accelerated Junctional rhythm with Premature supraventricular complexes Right axis deviation Possible Right ventricular hypertrophy ST & T wave abnormality, consider inferior ischemia Abnormal ECG Confirmed by IBAN RUIZ, SHAUNA ([id number]), offline editor LAURA JAMES ([id number]) on 11/07/2018 8:46:23 AM Referred By: Yadi Doshi Confirmed By:SHAUNA FERRERA MD
[2018-11-03 10:54] LABS: Absolute Lymphocyte Count 2.15 X10^3/ul (0.83-4.51); Absolute Neutrophil Count 22.1 X10^3/uL (2.0-7.7); Basophil# 0.03 X10^3/uL; Basophil% 0.1 % (0-1); Eosinophil# 0.09 X10^3/uL; Eosinophils% 0.4 % (0-5); Hemoglobin 9.4 g/dl (12.0-15.0); Lymphocyte # 2.15 X10^3/ul (4.0); Lymphocyte % 8.6 % (19-41); Mean Corp Hgb Conc 29.4 g/gl (32-36); Mean Corpuscular Hgb 27.6 pg (27.0-32.0); Mean Corpuscular Volume 93.8 fL (81-99); Mean Platelet Vol. 9.3 fl (6.2-12.0); Monocyte# 0.66 X10^3/uL; Monocyte% 2.6 % (0-10); Neutrophil # 22.06 X10^3/uL (2.7-7.7); Neutrophil % 87.9 % (47-70); Platelet Count 247 K/mm3 (150-450); RBC Distribution Width CV 17.1 % (11.6-14.6); RBC Distribution Width SD 58.5 fl (35.1-43.9); Red Blood Count 3.41 M/mm3 (4.2-5.4); White Blood Count 25.1 K/mm3 (4.4-11.0)
[2018-11-03 10:56] LABS: Differential Indicated SCAN CRITERIA MET; POSITIVE COUNT NO; POSITIVE DIFFERENTIAL YES; POSITIVE MORPHOLOGY NO
[2018-11-03 10:59] LABS: International Normalized Ratio 1.6; Prothrombin Time (Protime)PT. 18.7 SECONDS (11.7-14.9)
[2018-11-03 11:00] LABS: Partial Thromboplast Time 43.4 Seconds (24.1-36.2)
[2018-11-03 11:07] LABS: Albumin, Serum 2.5 g/dL (3.2-5.0); BUN 33 mg/dL (7-18); BUN/Creat Ratio 27.7 RATIO (10-20); Creatinine, Serum 1.19 mg/dL (0.55-1.02); EST Glomerular Filtration Rate 46 mL/min (>60); Est Glom Filt Rate - Afr Amer 56 mL/min (>60); Estimated Creatinine Clearance 32.02 ml/min; Glucose 102 mg/dL (74-106); Protein, Total 7.9 g/dL (6.4-8.2)
[2018-11-03 11:08] LABS: ALB/GLOB Ratio 0.5 RATIO (0.9-2.4); AST(SGOT) 24 U/L (15-37); Alanine Aminotransfer ALT/SGPT 12 U/L (13-56); Alkaline Phosphatase 87 U/L (45-117); Anion Gap 7 (5-15); Calcium,Total 8.2 mg/dL (8.5-10.1); Chloride 98 mmol/L (98-107); Globulin 5.4 g/dL (2.2-4.2); Potassium 4.3 mmol/L (3.5-5.1); Sodium Level 138 mmol/L (136-145)
[2018-11-03 11:09] LABS: Lactic Acid 1.5 mmol/L (0.4-2.0)
[2018-11-03 12:08] LABS: Mucous, Urine 0 SEEN /hpf (<or=2+)
[2018-11-03 12:11] LABS: Color, Urine Yellow (Yellow); Glucose, Dipstick Normal (Normal); Ketone-Dipstick Negative (Negative); Leukocyte Esterase-Dipstick 500 /ul (Negative); Nitrite-Dipstick Negative (Negative); Occult Blood-Urine 10 /ul (Negative); Protein-Dipstick 15 mg/dl (Negative); Specific Gravity, Urine 1.015 (1.002-1.030); Urine Bilirubin Dipstick Negative (Negative); Urine Clarity Sl. Cloudy (Clear); Urine Urobilinogen Normal (Normal)
[2018-11-03 12:20] LABS: Bacteria 1+ /hpf (None Seen); Red Blood Cells-Urine 0-5 SEEN /hpf (0-5); Squamous Epithelial Cells - UA 0-5 SEEN /hpf (5-10); White Blood Cells 25-50 SEEN /hpf (0-5)
[2018-11-03] MEDS: Albuterol 2.5 MG/3 ML VIAL.NEB. INHALATION (12:26)
--- NOTE | 2018-11-03 12:27 | NURSING ---
DR BEVERLEY RUANO
--- NOTE | 2018-11-03 12:28 | HP.PCM_ITS ---
History of Present Illness Date of Admission: 11/03/18 Chief Complaint: hypoxia The patient is a 82 year old F with an extensive PMH as listed below; she was admitted from a senior care after she was noted to be short of breath and oxygen level was checked and she was noted to be in the 70s. Oxygen level came up to the 90s after she was put on 4 L of oxygen. She was brought in to the ED where she was noted to be febrile and tachypneic as well. She admitted to being short of breath and feeling her heart racing. She also admitted to a fever but denied any chills. Patient was quite lethargic in the ED but was able to answer questions. In the ED she was noted to be febrile with temperature peaking at 102.1 Fahrenheit and she was tachypneic as well. She was on 4 L of oxygen by nonrebreather mask at time of review. CBC does show white cell count of 25 and hemoglobin of 9.4. Platelets were normal. BMP showed creatinine of 1.19 and bicarb of 33. Chest x-ray showed cardiomegaly and persistent evidence for pulmonary congestion and airspace consolidation. She is being admitted to manage for acute hypoxic respiratory failure and sepsis likely due to pneumonia. 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) Vitamin D deficiency (Chronic) Neuropathy (Chronic) Malnutrition (Chronic) Leg ulcer, left (Chronic) Lymphedema of lower extremity (Chronic) History of myocardial infarction (Chronic) Incontinence of urine (Chronic) Hypertension (Chronic) Morbid obesity (Chronic) Hypothyroidism (Chronic) Hypercholesterolemia (Chronic) Osteoarthritis (arthritis due to wear and tear of joints) (Chronic) Rheumatoid arthritis (Chronic) Allergies No Known Allergies Allergy (Verified 06/05/18 13:06) Home Medications: Ambulatory Orders Medication Instructions Recorded Acetaminophen [Pain Relief Extra 1,000 mg PO Q8H PRN PRN 04/25/17 Strength] Aspirin [Aspir-Low] 81 mg PO DAILY 04/25/17 Gabapentin [Neurontin] 300 mg PO BIDCM 04/25/17 Levothyroxine [Synthroid] 100 mcg PO DAILY@0600 08/01/17 Ondansetron [Zofran Odt] 4 mg PO Q8H PRN PRN #90 tab 06/14/18 Pantoprazole Sodium [Protonix] 20 mg PO DAILY tablet 06/14/18 Apixaban [Eliquis] 5 mg PO BID 10/01/18 Ergocalciferol (Vitamin D2) 50,000 unit PO QWEEK 10/01/18 [Drisdol] Hydrocodone Bitart/Apap 5-325 1 tablet PO Q8H PRN PRN 10/01/18 [[place] 5/325] L. Rhamnosus GG/Inulin [Culturelle 1 each PO BID 10/01/18 Capsule] Multivitamin [Multiple Vitamins] 1 each PO DAILY 10/01/18 Polyethylene Glycol 3350 [Miralax] 17 gm PO DAILY 10/01/18 Temazepam [Restoril] 15 mg PO QHS 10/01/18 Menthol/Lanolin/Calamine/Znox 1 applic TOPICAL BID tube 10/05/18 [Calmoseptine Ointment] Ipratropium/Albuterol Sulfate 3 ml INHALATION Q6H PRN PRN 11/01/18 [Duoneb] Bisacodyl [Biscolax] 10 mg RC DAILY PRN 11/03/18 Furosemide [Lasix] 40 mg PO BID 11/03/18 Magnesium Hydroxide [Milk Of 30 ml PO DAILY PRN 11/03/18 Magnesia] Melatonin 4 mg PO QHS PRN 11/03/18 Surgical History: herniorrhaphy, hysterectomy, total knee arthroplasty - Bilateral., tonsillectomy, - - Cardiac stents x 2, gastric bypass surgery, right ankle ORIF. 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 The patient's mother at the age of 90 with a history of arthritis. Paternal History Items: Heart Disease Review of Systems Constitutional: Reports: Fever, Malaise, Weakness. Denies: Chills Eyes: Denies: Blurred vision HEENT: Denies: Head Aches, Sinus Congestion, Sinus Drainage Cardiovascular: Reports: Chest Pain. Denies: Chest Pressure, Chest Tightness, Edema, Light Headedness, Orthopnea, Paroxysmal Noc. Dyspnea Respiratory: Reports: Shortness of Breath, Shortness of breath at rest, Shortness of breath upon exertion. Denies: Cough, Sputum production, Wheezing Gastrointestinal: Denies: Abdominal Pain, Nausea, Vomiting Genitourinary: Denies: Dysuria Musculoskeletal: Denies: Joint Pain, Joint Tenderness Skin: Denies: Rash, Wounds Neurological: Denies: Numbness, Tingling, Focal weakness Psychiatric: Denies: Anxiety, Depression, Homicidal Ideations, Suicidal Ideations Hematologic/ Lymphatic: Denies: Easy Bruising, Easy Bleeding VTE Information - Inpt Only VTE Present on Admission: No VTE Pharm Prophylaxis ordered?: Yes - Physical Exam General: Alert, Lethargic HEENT: EOMI, - - blood tinged crusty discharge over left eye. Denies hitting her head or falling or being hit Oral: Dry Mucosa Neck: Supple, No JVD, Negative Carotid Bruits Lungs: - - decreased breath sounds bibasally with some crackles. Poor inspiratory effort. Tachypneic. On 4L of oxygen by nonrebreather mask Cardiovascular: Normal S1, Normal S2, No murmurs, Tachycardic Abdomen: Bowel Sounds Present, Soft, Non Tender, Non-Distended, No Hepato- splenomegaly Extremities: - - bilateral LE pitting pedal edema, with mild erythema of both LEs; RLE wrapped in bandage. Skin: - - as under extremities Musculoskeletal: Tenderness - mild tenderness on palpation of both LEs Lymphatic: No Cervical, Supraclavicular, or Inguinal Adenopathy Neurological: Cranial nerves II-XII grossly intact, Neuro grossly intact Psych/Mental Status: - - lethargic, Vital Signs Temp Pulse Resp BP Pulse Ox 102.1 F H 91 22 H 124/70 H 96 11/03/18 11:39 11/03/18 12:26 11/03/18 12:26 11/03/18 11:39 11/03/18 11:40 Oxygen Flow Rate (L/min) 4 Oxygen Delivery Method Venturi Mask Weight: 253 lb 8.505 oz Body Mass Index (BMI) 43.4 Laboratory Tests Past 24 Hrs 11/03/18 11/03/18 11/03/18 10:39 10:39 10:39 WBC 25.1 H RBC 3.41 L Hgb 9.4 L Hct 32.0 L MCV 93.8 MCH 27.6 MCHC 29.4 L RDW 17.1 H RDW Differential 58.5 H Plt Count 247 MPV 9.3 Immature Gran % (Auto) 0.400 Neut % (Auto) 87.9 H Lymph % (Auto) 8.6 L [place] % (Auto) 2.6 Eos % (Auto) 0.4 Baso % (Auto) 0.1 Absolute Neuts (auto) 22.1 H Absolute Lymphs (auto) 2.15 Total Counted Not Reportable Differential Comment PT 18.7 H INR 1.6 APTT 43.4 H Sodium 138 Potassium 4.3 Chloride 98 Carbon Dioxide 33.0 H Anion Gap 7 BUN 33 H Creatinine 1.19 H Estim Creat Clear Calc 32.02 Est GFR (MDRD) Af Amer 56 L Est GFR (MDRD) Non-Af 46 L BUN/Creatinine Ratio 27.7 H Glucose 102 Lactic Acid Calcium 8.2 L Total Bilirubin 0.60 AST 24 ALT 12 L Alkaline Phosphatase 87 Total Protein 7.9 Albumin 2.5 L Globulin 5.4 H Albumin/Globulin Ratio 0.5 L Urine Color Urine Clarity Urine pH Ur Specific [place] Urine Protein Urine Glucose (UA) Urine Ketones Urine Occult Blood Urine Nitrite Urine Bilirubin Urine Urobilinogen Ur Leukocyte Esterase Urine RBC Urine WBC Ur Squamous Epith Cells Urine Bacteria Urine Mucus 11/03/18 11/03/18 10:39 12:00 WBC RBC Hgb Hct MCV MCH MCHC RDW RDW Differential Plt Count MPV Immature Gran % (Auto) Neut % (Auto) Lymph % (Auto) [place] % (Auto) Eos % (Auto) Baso % (Auto) Absolute Neuts (auto) Absolute Lymphs (auto) Total Counted Differential Comment PT INR APTT Sodium Potassium Chloride Carbon Dioxide Anion Gap BUN Creatinine Estim Creat Clear Calc Est GFR (MDRD) Af Amer Est GFR (MDRD) Non-Af BUN/Creatinine Ratio Glucose Lactic Acid 1.5 Calcium Total Bilirubin AST ALT Alkaline Phosphatase Total Protein Albumin Globulin Albumin/Globulin Ratio Urine Color Yellow Urine Clarity Sl. Cloudy Urine pH 6.0 Ur Specific [place] 1.015 Urine Protein 15 H Urine Glucose (UA) Normal Urine Ketones Negative Urine Occult Blood 10 H Urine Nitrite Negative Urine Bilirubin Negative Urine Urobilinogen Normal Ur Leukocyte Esterase 500 H Urine RBC 0-5 SEEN Urine WBC 25-50 SEEN Ur Squamous Epith Cells 0-5 SEEN Urine Bacteria 1+ Urine Mucus 0 SEEN Diagnostic Data Chest X-Ray 11/03/18 10:39 IMPRESSION: Cardiomegaly and persistent evidence for pulmonary congestion and airspace consolidation. Electronically Signed: Susan Buenrostro MD at 11:26 EST , Service support , Assessment/Plan All Active Problems Venous stasis ulcer of right lower extremity (Acute) Congestive heart failure (Acute) 82-year-old admitted from a nursing with a complaint of shortness of breath, fever and hypoxia. 1. Sepsis due to pneumonia and UTI * SIRS criteria is 3/4 (fever, tachypnea, leucocytosis) * saturation fell to 70s on room air in the senior care * denies any cough * admit to PCU with telemetry * check BNP; if WNL then hydrate per sepsis protocol * get 2D echo * blood cultures x 2 and urine culture; urine for strep and legionella * check respiratory panel * UA showed 500 LE and 25-50wbc per HPF * started on IV vancomycin and zosyn;will continue * 2.Acute hypoxic respiratory failure due to health associated pneumonia and acute systolic CHF exacerbation * saturation fell to the 70s on room air and came up to 90s on 4L of oxygen * CXR showed evidence of pulmonary congestion and infiltrate * currently saturating well on 4L of oxygen by nasal canula * titrate oxygen to maintain sats>92% * use BIPAP prn * breathing treatments * 3. Acute diastolic CHF exacerbation: * BNP is ~ 741. * CXR as above. * 2D echo(: EF of 65% with stage 3 diastolic dysfunction * WIll diurese with IV lasix and monitor 4. Chronic LE ulcers: present on admission. consult wound care nurse 5. Afib: on aspirin and eliquis 6. Hypothyroidism; on synthroid 7. Microcytic, hypochromic anemia: Hemoglobin is 9.4. Will monitor. 8. COPD: on breathing treatment DVT prophylaxis; on eliquis Code status: DNRCCA Code Visit Inpatient E&M: 43237 Init Hosp L3
--- NOTE | 2018-11-03 12:28 | ED.VISSUMM ---
- ER Visit Summary Date of Service: 11/03/18 Chief Complaint: Abnormal labs History of Present Illness: The patient is a 82 F who is being sent from the senior living for abnormal labs. History is obtained from paperwork. Patient does not give any history. Her white blood cell count on the outpatient labs was 26.5. They are concerned about a urinary tract infection. She is on Eliquis for atrial fibrillation. Upon EMS arrival for transportation her SPO2 is in the 70s. They placed her on a nonrebreather and she was up to 98% on that. According to paperwork she has no history of COPD. Physical Examination: Vital signs reviewed. HEENT exam reveals a minimal amount of blood coming from the left eye which according to paperwork is chronic. Heart is irregularly irregular and not tachycardic. Lungs have rhonchorous breath sounds bilaterally. Abdomen is soft with no tenderness. Extremities reveal 2+ edema with cellulitic changes. This appears to be chronic. She does have wounds on the right lower extremity. There are slightly erythematous. She has diffuse overall weakness and she is alerted to self only. Test Results: EKG is atrial fibrillation with a rate of 97. Nonspecific changes noted. Chest x-ray reveals a right upper lobe infiltrate. White blood cell count 25.1. Urinalysis does show infection. Creatinine is 1.19. Lactate 1.5. Emergency Department Course and Treatment: I did obtain a wound culture from the patient's right lower extremity. She has multiple areas which could be the nidus of her infection. Chest x-ray does reveal a right upper lobe infiltrate. She does have 25-50 white blood cells in her urine. The right lower extremity is erythematous. Her temperature was 102 here so she was given Tylenol. I will start her on vancomycin and Zosyn. She was able to be weaned to a 50% Ventimask. I feel she should be observed in the ICU overnight Treatment Plan: [] Disposition: Admit Impression: Sepsis Healthcare associated pneumonia Urinary tract infection This note was generated with [employer] dictation software. It may contain incorrect words, spelling, and punctuation that were not noted in review of the chart prior to signing ED Disposition - Plan for ED Patient: Chief Complaint: Alt LOC Referrals: Ramirez Curran MD [Primary Care Provider] -
[2018-11-03] MEDS: Acetaminophen 650 MG Suppository RECTAL (12:56)
[2018-11-03] MEDS: 0.9% Normal Saline 1,000 ML 150 ML IV (12:56)
--- NOTE | 2018-11-03 13:06 | NURSING ---
1145-ANDRADE INSERTED AND PT BRY WELL. DR. RUANO IN AND DANYA REMMOVED RT LOWER LEG AND LARGE AMT PURLELENT DRNG OBS AND LARGE OPEN AREA NOTED.
[2018-11-03 14:11] LABS: BNP,B-Type NATRIURETIC PEPTIDE 741.5 pg/mL (0-100)
--- NOTE | 2018-11-03 14:17 | PCM.RX.CS ---
Consult Pharmacy has been consulted to manage selected antiobiotic: Vancomycin Type of Consult: New start Suspected Infection: Sepsis, Pneumonia Prior Doses of Antibiotics Received/Current Regimen: VANCOMYCIN 1500MG IV X1 11/03 @1256 Labs: Sodium 138 mmol/L (136-145) 11/03/18 10:39 Potassium 4.3 mmol/L (3.5-5.1) 11/03/18 10:39 Chloride 98 mmol/L (98-107) 11/03/18 10:39 Carbon Dioxide 33.0 mmol/L (21.0-32.0) H 11/03/18 10:39 Anion Gap 7 (5-15) 11/03/18 10:39 BUN 33 mg/dL (7-18) H 11/03/18 10:39 Creatinine 1.19 mg/dL (0.55-1.02) H 11/03/18 10:39 Est GFR (MDRD) Af Amer 56 mL/min (>60) L 11/03/18 10:39 Est GFR (MDRD) Non-Af 46 mL/min (>60) L 11/03/18 10:39 BUN/Creatinine Ratio 27.7 RATIO (10-20) H 11/03/18 10:39 Glucose 102 mg/dL (74-106) 11/03/18 10:39 Microbiology: Microbiology 11/03/18 12:00 Wound - Leg, Right Gram Stain - Final 11/03/18 12:00 Urine Catheter - Vitale Streptococcus pneumoniae Antigen (M - Final 11/03/18 12:00 Urine Catheter - Vitale Legionella Antigen - Final Weight used for dosin kg Estimated Creatinine Clearance: 32ML/MIN Goal Trough: 15-20 mcg/mL Pharmacy Plan for Drug Dosing: PLAN/RECOMMENDATIONS 1. Vancomycin 1500mg Q24hr to start 11/04/18 @1300 2. Trough scheduled 11/05/18 @1230, prior to 3rd total dose of vancomycin 3. Pharmacy Service will continue to monitor and adjust dosing as required.
--- NOTE | 2018-11-03 14:26 | NURSING ---
wound photo: right medial lower leg
--- NOTE | 2018-11-03 14:28 | NURSING ---
wound photo: right posterolateral lower leg
[2018-11-03] MEDS: 0.9% NaCl Peripheral Flush Adult/Peds IV ×2 (16:34→22:40)
[2018-11-03] MEDS: Furosemide 40 MG/4 ML Vial IV (16:34)
[2018-11-03] MEDS: APIXABAN 5 MG TABLET PO (22:14)
[2018-11-03] MEDS: Acetaminophen 500 MG Tablet 1000 MG PO (22:14)
[2018-11-03] MEDS: Piperacil/Tazobactam 3.375 GM/50 ML ML IV (22:27)
[2018-11-04] VITALS (14 sets, daily range): BP systolic 85–101; BP diastolic 47–66; PULSE 71–82; RESP 18–20; TEMP 36.2–37.4; O2SAT 94–98
[2018-11-04] MEDS: Piperacil/Tazobactam 3.375 GM/50 ML ML IV ×3 (05:45→21:38)
[2018-11-04] MEDS: Levothyroxine 100 MCG Tablet PO (05:47)
--- NOTE | 2018-11-04 06:06 | CPS ---
PT HAS SWOLLEN EYES, SWOLLEN FACE, BIPAP NOT WANTED, PT ON VENTIMASK ANS COMFORTABLE ON IT
[2018-11-04 06:22] LABS: Absolute Lymphocyte Count 2.02 X10^3/ul (0.83-4.51); Absolute Neutrophil Count 11.5 X10^3/uL (2.0-7.7); Basophil# 0.03 X10^3/uL; Basophil% 0.2 % (0-1); Eosinophil# 0.11 X10^3/uL; Eosinophils% 0.8 % (0-5); Hemoglobin 9.1 g/dl (12.0-15.0); Lymphocyte # 2.02 X10^3/ul (4.0); Lymphocyte % 14.2 % (19-41); Mean Corp Hgb Conc 28.4 g/gl (32-36); Mean Corpuscular Hgb 27.7 pg (27.0-32.0); Mean Corpuscular Volume 97.3 fL (81-99); Mean Platelet Vol. 10.1 fl (6.2-12.0); Monocyte# 0.49 X10^3/uL; Monocyte% 3.4 % (0-10); Neutrophil # 11.51 X10^3/uL (2.7-7.7); Neutrophil % 80.9 % (47-70); Platelet Count 231 K/mm3 (150-450); RBC Distribution Width CV 17.2 % (11.6-14.6); RBC Distribution Width SD 57.6 fl (35.1-43.9); Red Blood Count 3.29 M/mm3 (4.2-5.4); White Blood Count 14.2 K/mm3 (4.4-11.0)
[2018-11-04 06:23] LABS: POSITIVE COUNT NO; POSITIVE DIFFERENTIAL NO; POSITIVE MORPHOLOGY NO
[2018-11-04 06:40] LABS: Anion Gap 7 (5-15); BUN 37 mg/dL (7-18); BUN/Creat Ratio 29.8 RATIO (10-20); Calcium,Total 7.9 mg/dL (8.5-10.1); Chloride 102 mmol/L (98-107); Creatinine, Serum 1.24 mg/dL (0.55-1.02); EST Glomerular Filtration Rate 44 mL/min (>60); Est Glom Filt Rate - Afr Amer 53 mL/min (>60); Estimated Creatinine Clearance 30.73 ml/min; Glucose 84 mg/dL (74-106); Potassium 4.1 mmol/L (3.5-5.1); Sodium Level 137 mmol/L (136-145)
[2018-11-04] MEDS: Multivitamins,Therapeutic Tablet 1 TABLET PO (08:31)
[2018-11-04] MEDS: Gabapentin 300 MG Capsule PO ×2 (08:31→17:18)
[2018-11-04] MEDS: Aspirin E.C. 81 MG Tablet PO (08:31)
[2018-11-04] MEDS: Pantoprazole Sodium 20 MG Tablet PO (08:31)
[2018-11-04] MEDS: Polyethylene Glycol 3350 17 GM PACKET PO (08:31)
[2018-11-04] MEDS: Furosemide 40 MG/4 ML Vial IV (08:31)
[2018-11-04] MEDS: Menthol/Lanolin/Calamine/Znox 113 GM Tube 1 APPLIC TOPICAL ×2 (08:31→21:41)
[2018-11-04] MEDS: APIXABAN 5 MG TABLET PO ×2 (08:31→21:40)
[2018-11-04] MEDS: Acetaminophen 500 MG Tablet 1000 MG PO (08:33)
--- NOTE | 2018-11-04 10:24 | PCM.PN.HOSP ---
Subjective: Patient seen and examined. She is much more alert today and able to answer questions. She complains of burning and discharge from her left eye. She denies any fever but admits to shortness of breath. She does have a cough but is unable to bring up any sputum. She denies any chest pain, palpitations, abdominal pain, diarrhea or vomiting. Review of systems otherwise negative. Labs and vitals reviewed. Patient is urine output over last 24 hours is just 550 mils. She remains on 4 L of oxygen. Vitals/I&O's: Vital Signs Temp Pulse Resp BP Pulse Ox 98.0 F 75 18 101/66 94 11/04/18 08:27 11/04/18 08:27 11/04/18 08:27 11/04/18 08:27 11/04/18 08:27 Oxygen Flow Rate (L/min) 4 Oxygen Delivery Method Nasal Cannula Weight: 247 lb 9.266 oz Body Mass Index (BMI) 41.3 Intake and Output for Last 24 Hours 11/02/18 11/03/18 11/04/18 23:59 23:59 23:59 Intake Total 585 / 585 Output Total 550 / 550 75 / 75 Balance 35 / 35 -75 / -75 General: Alert, Cooperative, No apparent distress, Lethargic HEENT: Atraumatic, PERRLA, - - mild erythema of left conjuctivae, wtih scanty discharge from right eye. Oral: Dry Mucosa Neck: Supple, No JVD, Negative Carotid Bruits Lungs: - - coarse crackles bibasally and in right mid and lower lung leone. Cardiovascular: Regular rate, Regular Rhythm, Normal S1, Normal S2, No murmurs Abdomen: Bowel Sounds Present, Soft, Non Tender, Non-Distended, No Hepato-splenomegaly Extremities: - - both LEs wrapped in ANKIT bandage; has chronic LE ulcers. Skin: No rashes, - - as under extremities Musculoskeletal: No Tenderness to Palpation of Joints or Extremities Lymphatic: No Cervical, Supraclavicular, or Inguinal Adenopathy Neurological: Cranial nerves II-XII grossly intact Psych/Mental Status: Normal Affect, Appropriate Microbiology Past 72 Hours 11/03/18 12:00 Wound - Leg, Right Gram Stain - Final 11/03/18 12:00 Wound - Leg, Right Wound Culture - Preliminary Staphylococcus species Gram negative yousif 11/03/18 12:00 Urine Catheter - Vitale Urine Culture - Preliminary Gram negative yousif 11/03/18 15:25 Interface Orders Respiratory Panel (PCR) - Final 11/03/18 12:00 Urine Catheter - Vitale Streptococcus pneumoniae Antigen (M - Final 11/03/18 12:00 Urine Catheter - Vitale Legionella Antigen - Final Laboratory Results 11/03/18 10:39: WBC 25.1 H, RBC 3.41 L, Hgb 9.4 L, Hct 32.0 L, MCV 93.8, MCH 27.6, MCHC 29.4 L, RDW 17.1 H, RDW Differential 58.5 H, Plt Count 247, MPV 9.3, Immature Gran % (Auto) 0.400, Neut % (Auto) 87.9 H, Lymph % (Auto) 8.6 L, [place] % (Auto) 2.6, Eos % (Auto) 0.4, Baso % (Auto) 0.1, Absolute Neuts (auto) 22.1 H, Absolute Lymphs (auto) 2.15, Total Counted Not Reportable, Differential Comment 11/03/18 10:39: PT 18.7 H, INR 1.6, APTT 43.4 H 11/03/18 10:39: Sodium 138, Potassium 4.3, Chloride 98, Carbon Dioxide 33.0 H, Anion Gap 7, BUN 33 H, Creatinine 1.19 H, Estim Creat Clear Calc 32.02, Est GFR (MDRD) Af Amer 56 L, Est GFR (MDRD) Non-Af 46 L, BUN/Creatinine Ratio 27.7 H, Glucose 102, Calcium 8.2 L, Total Bilirubin 0.60, AST 24, ALT 12 L, Alkaline Phosphatase 87, Total Protein 7.9, Albumin 2.5 L, Globulin 5.4 H, Albumin/Globulin Ratio 0.5 L 11/03/18 10:39: Lactic Acid 1.5 11/03/18 10:39: B-Natriuretic Peptide 741.5 H 11/03/18 12:00: Urine Color Yellow, Urine Clarity Sl. Cloudy, Urine pH 6.0, Ur Specific [place] 1.015, Urine Protein 15 H, Urine Glucose (UA) Normal, Urine Ketones Negative, Urine Occult Blood 10 H, Urine Nitrite Negative, Urine Bilirubin Negative, Urine Urobilinogen Normal, Ur Leukocyte Esterase 500 H, Urine RBC 0-5 SEEN, Urine WBC 25-50 SEEN, Ur Squamous Epith Cells 0-5 SEEN, Urine Bacteria 1+, Urine Mucus 0 SEEN 11/04/18 05:35: WBC 14.2 H, RBC 3.29 L, Hgb 9.1 L, Hct 32.0 L, MCV 97.3, MCH 27.7, MCHC 28.4 L, RDW 17.2 H, RDW Differential 57.6 H, Plt Count 231, MPV 10.1, Immature Gran % (Auto) 0.500, Neut % (Auto) 80.9 H, Lymph % (Auto) 14.2 L, [place] % (Auto) 3.4, Eos % (Auto) 0.8, Baso % (Auto) 0.2, Absolute Neuts (auto) 11.5 H, Absolute Lymphs (auto) 2.02, Total Counted Not Reportable 11/04/18 05:35: Sodium 137, Potassium 4.1, Chloride 102, Carbon Dioxide 28.0, Anion Gap 7, BUN 37 H, Creatinine 1.24 H, Estim Creat Clear Calc 30.73, Est GFR (MDRD) Af Amer 53 L, Est GFR (MDRD) Non-Af 44 L, BUN/Creatinine Ratio 29.8 H, Glucose 84, Calcium 7.9 L Current Medications Acetaminophen (Tylenol) 1,000 mg PO Q8H PRN PRN PRN Reason: PAIN Last Admin: 11/04/18 08:33 Dose: 1,000 mg Hydrocodone Bitart/Acetaminophen ([place] 5mg-325mg) 1 tablet PO Q8H PRN PRN PRN Reason: PAIN Albuterol/Ipratropium (Duoneb) 3 ml INHALATION Q6H PRN PRN PRN Reason: SOB &/OR WHEEZING Apixaban (Eliquis) 5 mg PO BID [facility] Last Admin: 11/04/18 08:31 Dose: 5 mg Aspirin ([facility]rin) [facility] Last Admin: 11/04/18 08:31 Dose: 81 mg Bisacodyl (Dulcolax) 10 mg RECTAL DAILY PRN PRN Reason: Constipation Calamine/Phenol (Calmoseptine Ointment) 1 applic TOPICAL BID [facility]; Protocol Last Admin: 11/04/18 08:31 Dose: 1 applicatio Ciprofloxacin HCl (Ciloxan) 1 drop EACH EYE Q6 [facility] Ergocalciferol (Vitamin D) 50,000 unit PO QWEEK [facility] Furosemide (Lasix) 40 mg IV DAILY [facility] Last Admin: 11/04/18 08:31 Dose: 40 mg Gabapentin (Neurontin) 300 mg PO BIDCM [facility] Last Admin: 11/04/18 08:31 Dose: 300 mg Piperacillin Sod/Tazobactam Sod (Zosyn) 3.375 gm in 50 mls @ 12.5 mls/hr IV Q8 [facility] Last Admin: 11/04/18 05:45 Dose: 12.5 mls/hr Vancomycin IV Pharmacy to Dose (1 ea/ Sodium Chloride) 500 mls @ 250 mls/hr IV PRN PRN; Protocol PRN Reason: Rx to Dose Vancomycin HCl 1,500 mg/ (Sodium Chloride) 530 mls @ 250 mls/hr IV Q24H [facility] Lactobacillus Acidophilus (Acidophilus) 1 tablet PO BID [facility] Last Admin: 11/04/18 08:31 Dose: 1 tablet Levothyroxine Sodium (Synthroid) 100 mcg PO DAILY@0600 [facility] Last Admin: 11/04/18 05:47 Dose: 100 mcg Magnesium Hydroxide (Milk Of Magnesia) 30 ml PO DAILY PRN PRN Reason: Constipation Multivitamins (Multivitamin) 1 tablet PO DAILY@0800 [facility] Last Admin: 11/04/18 08:31 Dose: 1 tablet Nutritional Formula (Lactose Free) (Ensure Enlive) 120 ml PO 4X/DAY [facility] Last Admin: 11/04/18 08:31 Dose: Not Given Ondansetron HCl (Zofran Odt) 4 mg PO Q8H PRN PRN PRN Reason: NAUSEA Pantoprazole Sodium (Protonix) 20 mg PO DAILY [facility] Last Admin: 11/04/18 08:31 Dose: 20 mg Polyethylene Glycol (Miralax) 17 gm PO DAILY [facility] Last Admin: 11/04/18 08:31 Dose: 17 gm Sodium Chloride () 5 - 15 ml IV UD PRN PRN Reason: SALINE FLUSH Last Admin: 11/03/18 22:40 Dose: 10 ml Temazepam (Restoril) 15 mg PO QHS [facility] Last Admin: 11/03/18 22:14 Dose: Not Given Medical Necessity - Tobacco Use Smoking Status: Unknown if ever smoked Assessment/Plan All Active Problems Venous stasis ulcer of right lower extremity (Acute) Congestive heart failure (Acute) 82-year-old admitted from a nursing with a complaint of shortness of breath, fever and hypoxia. 1. Sepsis due to pneumonia and UTI fever, tachypnea and tachycardia have resolved since admission saturating well on 4L of oxygen. BNP was elevated at 741 blood cultures pending. respriatory panel negative UA showed evidence of UTI as well. on IV vancomycin and zosyn; will continue urine cultured gram negative yousif; speciation is pending 2.Acute hypoxic respiratory failure due to health associated pneumonia and acute systolic CHF exacerbation saturating well on 4L of oxygen continue breathing treatments and antibiotics titrate oxygen to maintain sats>92% use BIPAP prn breathing treatments 3. Acute diastolic CHF exacerbation: BNP is ~ 741. CXR as above. 2D echo(10/17): EF of 65% with stage 3 diastolic dysfunction being diuresed with IV lasix 40mg daily; was mildly hypotensive overnight with BP going down into the 80s and 90s systolic will monitor and cut back on lasix as needed. 4. PING: Cr is 1.24, baseline Cr is ~ 0.8. Currently being diuresed o.a of PING though patient does appear dry. WIll monitor Cr 5. Bilateral conjuctivitis: complains of burning and dishcarge from her eye. Will give ciprofloxacin eye drops 6. Chronic LE ulcers: present on admission. consult wound care nurse. Wound culture gram-negative rods and Staphylococcus species. 7. Afib: on aspirin and eliquis 8. Hypothyroidism; on synthroid 9. Microcytic, hypochromic anemia: Hemoglobin is 9.4. Will monitor. 10. COPD: on breathing treatment DVT prophylaxis; on eliquis Code status: DNRCCA Code Visit Inpatient E&M: 58100 Subs Hosp L3
--- NOTE | 2018-11-04 10:33 | PN_ITS ---
Subjective: Patient seen and examined. She is much more alert today and able to answer questions. She complains of burning and discharge from her left eye. She denies any fever but admits to shortness of breath. She does have a cough but is unable to bring up any sputum. She denies any chest pain, palpitations, abdominal pain, diarrhea or vomiting. Review of systems otherwise negative. Labs and vitals reviewed. Patient is urine output over last 24 hours is just 550 mils. She remains on 4 L of oxygen. Vitals/I&O's: Vital Signs Temp Pulse Resp BP Pulse Ox 98.0 F 75 18 101/66 94 11/04/18 08:27 11/04/18 08:27 11/04/18 08:27 11/04/18 08:27 11/04/18 08:27 Oxygen Flow Rate (L/min) 4 Oxygen Delivery Method Nasal Cannula Weight: 247 lb 9.266 oz Body Mass Index (BMI) 41.3 Intake and Output for Last 24 Hours 11/02/18 11/03/18 11/04/18 23:59 23:59 23:59 Intake Total 585 / 585 Output Total 550 / 550 75 / 75 Balance 35 / 35 -75 / -75 General: Alert, Cooperative, No apparent distress, Lethargic HEENT: Atraumatic, PERRLA, - - mild erythema of left conjuctivae, wtih scanty discharge from right eye. Oral: Dry Mucosa Neck: Supple, No JVD, Negative Carotid Bruits Lungs: - - coarse crackles bibasally and in right mid and lower lung leone. Cardiovascular: Regular rate, Regular Rhythm, Normal S1, Normal S2, No murmurs Abdomen: Bowel Sounds Present, Soft, Non Tender, Non-Distended, No Hepato- splenomegaly Extremities: - - both LEs wrapped in ANKIT bandage; has chronic LE ulcers. Skin: No rashes, - - as under extremities Musculoskeletal: No Tenderness to Palpation of Joints or Extremities Lymphatic: No Cervical, Supraclavicular, or Inguinal Adenopathy Neurological: Cranial nerves II-XII grossly intact Psych/Mental Status: Normal Affect, Appropriate Microbiology Past 72 Hours 11/03/18 12:00 Wound - Leg, Right Gram Stain - Final 11/03/18 12:00 Wound - Leg, Right Wound Culture - Preliminary Staphylococcus species Gram negative yousif 11/03/18 12:00 Urine Catheter - Vitale Urine Culture - Preliminary Gram negative yousif 11/03/18 15:25 Interface Orders Respiratory Panel (PCR) - Final 11/03/18 12:00 Urine Catheter - Vitale Streptococcus pneumoniae Antigen (M - Final 11/03/18 12:00 Urine Catheter - Vitale Legionella Antigen - Final Laboratory Results 11/03/18 10:39: WBC 25.1 H, RBC 3.41 L, Hgb 9.4 L, Hct 32.0 L, MCV 93.8, MCH 27.6, MCHC 29.4 L, RDW 17.1 H, RDW Differential 58.5 H, Plt Count 247, MPV 9.3, Immature Gran % (Auto) 0.400, Neut % (Auto) 87.9 H, Lymph % (Auto) 8.6 L, [place] % (Auto) 2.6, Eos % (Auto) 0.4, Baso % (Auto) 0.1, Absolute Neuts (auto) 22.1 H, Absolute Lymphs (auto) 2.15, Total Counted Not Reportable, Differential Comment 11/03/18 10:39: PT 18.7 H, INR 1.6, APTT 43.4 H 11/03/18 10:39: Sodium 138, Potassium 4.3, Chloride 98, Carbon Dioxide 33.0 H, Anion Gap 7, BUN 33 H, Creatinine 1.19 H, Estim Creat Clear Calc 32.02, Est GFR (MDRD) Af Amer 56 L, Est GFR (MDRD) Non-Af 46 L, BUN/Creatinine Ratio 27.7 H, Glucose 102, Calcium 8.2 L, Total Bilirubin 0.60, AST 24, ALT 12 L, Alkaline Phosphatase 87, Total Protein 7.9, Albumin 2.5 L, Globulin 5.4 H, Albumin/Globulin Ratio 0.5 L 11/03/18 10:39: Lactic Acid 1.5 11/03/18 10:39: B-Natriuretic Peptide 741.5 H 11/03/18 12:00: Urine Color Yellow, Urine Clarity Sl. Cloudy, Urine pH 6.0, Ur Specific [place] 1.015, Urine Protein 15 H, Urine Glucose (UA) Normal, Urine Ketones Negative, Urine Occult Blood 10 H, Urine Nitrite Negative, Urine Bilirubin Negative, Urine Urobilinogen Normal, Ur Leukocyte Esterase 500 H, Urine RBC 0-5 SEEN, Urine WBC 25-50 SEEN, Ur Squamous Epith Cells 0-5 SEEN, Urine Bacteria 1+, Urine Mucus 0 SEEN 11/04/18 05:35: WBC 14.2 H, RBC 3.29 L, Hgb 9.1 L, Hct 32.0 L, MCV 97.3, MCH 27.7, MCHC 28.4 L, RDW 17.2 H, RDW Differential 57.6 H, Plt Count 231, MPV 10.1, Immature Gran % (Auto) 0.500, Neut % (Auto) 80.9 H, Lymph % (Auto) 14.2 L, [place] % (Auto) 3.4, Eos % (Auto) 0.8, Baso % (Auto) 0.2, Absolute Neuts (auto) 11.5 H, Absolute Lymphs (auto) 2.02, Total Counted Not Reportable 11/04/18 05:35: Sodium 137, Potassium 4.1, Chloride 102, Carbon Dioxide 28.0, Anion Gap 7, BUN 37 H, Creatinine 1.24 H, Estim Creat Clear Calc 30.73, Est GFR (MDRD) Af Amer 53 L, Est GFR (MDRD) Non-Af 44 L, BUN/Creatinine Ratio 29.8 H, Glucose 84, Calcium 7.9 L Current Medications Acetaminophen (Tylenol) 1,000 mg PO Q8H PRN PRN PRN Reason: PAIN Last Admin: 11/04/18 08:33 Dose: 1,000 mg Hydrocodone Bitart/Acetaminophen ([place] 5mg-325mg) 1 tablet PO Q8H PRN PRN PRN Reason: PAIN Albuterol/Ipratropium (Duoneb) 3 ml INHALATION Q6H PRN PRN PRN Reason: SOB &/OR WHEEZING Apixaban (Eliquis) 5 mg PO BID [facility] Last Admin: 11/04/18 08:31 Dose: 5 [facility] Last Admin: 11/04/18 08:31 Dose: 81 mg Bisacodyl (Dulcolax) 10 mg RECTAL DAILY PRN PRN Reason: Constipation Calamine/Phenol (Calmoseptine Ointment) 1 applic TOPICAL BID [facility]; Protocol Last Admin: 11/04/18 08:31 Dose: 1 applicatio Ciprofloxacin HCl (Ciloxan) 1 drop EACH EYE Q6 [facility] Ergocalciferol (Vitamin D) 50,000 unit PO QWEEK [facility] Furosemide (Lasix) 40 mg IV DAILY [facility] Last Admin: 11/04/18 08:31 Dose: 40 mg Gabapentin (Neurontin) 300 mg PO BIDCM [facility] Last Admin: 11/04/18 08:31 Dose: 300 mg Piperacillin Sod/Tazobactam Sod (Zosyn) 3.375 gm in 50 mls @ 12.5 mls/hr IV Q8 [facility] Last Admin: 11/04/18 05:45 Dose: 12.5 mls/hr Vancomycin IV Pharmacy to Dose (1 ea/ Sodium Chloride) 500 mls @ 250 mls/hr IV PRN PRN; Protocol PRN Reason: Rx to Dose Vancomycin HCl 1,500 mg/ (Sodium Chloride) 530 mls @ 250 mls/hr IV Q24H [facility] Lactobacillus Acidophilus (Acidophilus) 1 tablet PO BID [facility] Last Admin: 11/04/18 08:31 Dose: 1 tablet Levothyroxine Sodium (Synthroid) 100 mcg PO DAILY@0600 [facility] Last Admin: 11/04/18 05:47 Dose: 100 mcg Magnesium Hydroxide (Milk Of Magnesia) 30 ml PO DAILY PRN PRN Reason: Constipation Multivitamins (Multivitamin) 1 tablet PO DAILY@0800 [facility] Last Admin: 11/04/18 08:31 Dose: 1 tablet Nutritional Formula (Lactose Free) (Ensure Enlive) 120 ml PO 4X/DAY [facility] Last Admin: 11/04/18 08:31 Dose: Not Given Ondansetron HCl (Zofran Odt) 4 mg PO Q8H PRN PRN PRN Reason: NAUSEA Pantoprazole Sodium (Protonix) 20 mg PO DAILY [facility] Last Admin: 11/04/18 08:31 Dose: 20 mg Polyethylene Glycol (Miralax) 17 gm PO DAILY [facility] Last Admin: 11/04/18 08:31 Dose: 17 gm Sodium Chloride () 5 - 15 ml IV UD PRN PRN Reason: SALINE FLUSH Last Admin: 11/03/18 22:40 Dose: 10 ml Temazepam (Restoril) 15 mg PO QHS [facility] Last Admin: 11/03/18 22:14 Dose: Not Given Medical Necessity - Tobacco Use Smoking Status: Unknown if ever smoked Assessment/Plan All Active Problems Venous stasis ulcer of right lower extremity (Acute) Congestive heart failure (Acute) 82-year-old admitted from a nursing with a complaint of shortness of breath, fever and hypoxia. 1. Sepsis due to pneumonia and UTI * fever, tachypnea and tachycardia have resolved since admission * saturating well on 4L of oxygen. * BNP was elevated at 741 * blood cultures pending. respriatory panel negative * UA showed evidence of UTI as well. * on IV vancomycin and zosyn; will continue * urine cultured gram negative yousif; speciation is pending * * 2.Acute hypoxic respiratory failure due to health associated pneumonia and acute systolic CHF exacerbation * saturating well on 4L of oxygen * continue breathing treatments and antibiotics * titrate oxygen to maintain sats>92% * use BIPAP prn * breathing treatments * 3. Acute diastolic CHF exacerbation: * BNP is ~ 741. * CXR as above. * 2D echo(10/17): EF of 65% with stage 3 diastolic dysfunction * being diuresed with IV lasix 40mg daily; was mildly hypotensive overnight with BP going down into the 80s and 90s systolic * will monitor and cut back on lasix as needed. * 4. PING: Cr is 1.24, baseline Cr is ~ 0.8. Currently being diuresed o.a of PING though patient does appear dry. WIll monitor Cr 5. Bilateral conjuctivitis: complains of burning and dishcarge from her eye. Will give ciprofloxacin eye drops * 6. Chronic LE ulcers: present on admission. consult wound care nurse. Wound culture gram-negative rods and Staphylococcus species. 7. Afib: on aspirin and eliquis 8. Hypothyroidism; on synthroid 9. Microcytic, hypochromic anemia: Hemoglobin is 9.4. Will monitor. 10. COPD: on breathing treatment DVT prophylaxis; on eliquis Code status: DNRCCA Code Visit Inpatient E&M: 93401 Subs Hosp L3
--- NOTE | 2018-11-04 10:58 | CM.UR ---
When reviewing chart prior to assessment noted that patient came from [facility]. anticipating return to there. Alerted SW. Senthil Marroquin RN, CCM.
[2018-11-04] MEDS: Ciprofloxacin 0.3% 2.5ml Bottle 1 DRP EACH EYE ×3 (12:03→23:31)
[2018-11-04] MEDS: HYDROcodone Bitartrate/Apap 5/325 Tablet PO ×2 (15:14→23:30)
[2018-11-04] MEDS: Ondansetron ODT 4 MG Tablet PO (15:14)
--- NOTE | 2018-11-04 16:45 | NURSING ---
pt has refused turns this shift. extensive education provided to pt on importance of turning in order to protect bottom but pt is still refusing
[2018-11-04] MEDS: Temazepam 15 MG Capsule PO (23:30)
[2018-11-05] VITALS (10 sets, daily range): BP systolic 91–111; BP diastolic 55–62; PULSE 74–86; RESP 16–20; TEMP 36.6–37.1; O2SAT 91–99
[2018-11-05] MEDS: Piperacil/Tazobactam 3.375 GM/50 ML ML IV ×3 (06:08→23:17)
[2018-11-05] MEDS: Levothyroxine 100 MCG Tablet PO (06:08)
[2018-11-05] MEDS: Ciprofloxacin 0.3% 2.5ml Bottle 1 DRP EACH EYE ×4 (06:08→23:18)
[2018-11-05 06:27] LABS: Absolute Lymphocyte Count 1.81 X10^3/ul (0.83-4.51); Absolute Neutrophil Count 5.9 X10^3/uL (2.0-7.7); Basophil# 0.03 X10^3/uL; Basophil% 0.3 % (0-1); Eosinophil# 0.43 X10^3/uL; Eosinophils% 4.9 % (0-5); Hematocrit 31.6 % (37-47); Lymphocyte # 1.81 X10^3/ul (4.0); Lymphocyte % 20.8 % (19-41); Mean Corp Hgb Conc 28.5 g/gl (32-36); Mean Corpuscular Volume 98.1 fL (81-99); Mean Platelet Vol. 10.1 fl (6.2-12.0); Monocyte% 5.8 % (0-10); Neutrophil # 5.88 X10^3/uL (2.7-7.7); Neutrophil % 67.7 % (47-70); Platelet Count 238 K/mm3 (150-450); RBC Distribution Width CV 16.9 % (11.6-14.6); RBC Distribution Width SD 57.7 fl (35.1-43.9); Red Blood Count 3.22 M/mm3 (4.2-5.4); White Blood Count 8.7 K/mm3 (4.4-11.0)
[2018-11-05 06:33] LABS: POSITIVE COUNT NO; POSITIVE DIFFERENTIAL NO; POSITIVE MORPHOLOGY NO
[2018-11-05 06:44] LABS: Anion Gap 7 (5-15); BUN 41 mg/dL (7-18); BUN/Creat Ratio 27.3 RATIO (10-20); Chloride 99 mmol/L (98-107); EST Glomerular Filtration Rate 35 mL/min (>60); Est Glom Filt Rate - Afr Amer 43 mL/min (>60); Glucose 87 mg/dL (74-106); Potassium 4.5 mmol/L (3.5-5.1); Sodium Level 136 mmol/L (136-145)
--- NOTE | 2018-11-05 09:58 | PCM.PN.HOSP ---
Subjective: Patient seen and examined. She looks much more alert today. She still complains of shortness of breath though she is on 4 L of oxygen. She was breathing comfortably at rest. She denies any fever or chills, any palpitations, any chest pain, abdominal pain, any diarrhea vomiting. Review of systems otherwise negative. Labs and vitals reviewed. Creatinine noted to have trended up slightly to 1.5. Leucocytosis has resolved and is down to 8.7. Vitals/I&O's: Vital Signs Temp Pulse Resp BP Pulse Ox 98.8 F 86 16 96/62 96 11/05/18 03:36 11/05/18 05:00 11/05/18 03:36 11/05/18 03:36 11/05/18 07:00 Oxygen Flow Rate (L/min) 4 Oxygen Delivery Method Nasal Cannula Weight: 246 lb 4.101 oz Body Mass Index (BMI) 41.3 Intake and Output for Last 24 Hours 11/03/18 11/04/18 11/05/18 23:59 23:59 23:59 Intake Total 585 / 585 1562 / 1562 Output Total 550 / 550 525 / 525 100 / 100 Balance 35 / 35 1037 / 1037 -100 / -100 General: Alert, Cooperative, No apparent distress, Lethargic HEENT: Atraumatic, PERRLA, - - erythema of left eye has resolved. Oral: Dry Mucosa Neck: Supple, No JVD, Negative Carotid Bruits Lungs: - -still has few coarse crackles bibasally. Cardiovascular: Regular rate, Regular Rhythm, Normal S1, Normal S2, No murmurs Abdomen: Bowel Sounds Present, Soft, Non Tender, Non-Distended, No Hepato-splenomegaly Extremities: - - both LEs wrapped in ANKIT bandage; has chronic LE ulcers. Skin: No rashes, - - as under extremities Musculoskeletal: No Tenderness to Palpation of Joints or Extremities Lymphatic: No Cervical, Supraclavicular, or Inguinal Adenopathy Neurological: Cranial nerves II-XII grossly intact Psych/Mental Status: Normal Affect, Appropriate Microbiology Past 72 Hours 11/03/18 12:00 Wound - Leg, Right Gram Stain - Final 11/03/18 12:00 Wound - Leg, Right Wound Culture - Preliminary Staphylococcus aureus Proteus mirabilis 11/03/18 12:00 Urine Catheter - Vitale Urine Culture - Final Citrobacter youngae 11/03/18 15:25 Interface Orders Respiratory Panel (PCR) - Final 11/03/18 12:00 Urine Catheter - Vitale Streptococcus pneumoniae Antigen (M - Final 11/03/18 12:00 Urine Catheter - Vitale Legionella Antigen - Final Laboratory Results 11/05/18 05:05: WBC 8.7, RBC 3.22 L, Hgb 9.0 L, Hct 31.6 L, MCV 98.1, MCH 28.0, MCHC 28.5 L, RDW 16.9 H, RDW Differential 57.7 H, Plt Count 238, MPV 10.1, Immature Gran % (Auto) 0.500, Neut % (Auto) 67.7, Lymph % (Auto) 20.8, [place] % (Auto) 5.8, Eos % (Auto) 4.9, Baso % (Auto) 0.3, Absolute Neuts (auto) 5.9, Absolute Lymphs (auto) 1.81, Total Counted Not Reportable 11/05/18 05:05: Sodium 136, Potassium 4.5, Chloride 99, Carbon Dioxide 30.0, Anion Gap 7, BUN 41 H, Creatinine 1.50 H, Estim Creat Clear Calc 25.40, Est GFR (MDRD) Af Amer 43 L, Est GFR (MDRD) Non-Af 35 L, BUN/Creatinine Ratio 27.3 H, Glucose 87, Calcium 8.0 L Current Medications Acetaminophen (Tylenol) 1,000 mg PO Q8H PRN PRN PRN Reason: PAIN Last Admin: 11/04/18 08:33 Dose: 1,000 mg Hydrocodone Bitart/Acetaminophen ([place] 5mg-325mg) 1 tablet PO Q8H PRN PRN PRN Reason: PAIN Last Admin: 11/04/18 23:30 Dose: 1 tablet Albuterol/Ipratropium (Duoneb) 3 ml INHALATION Q6H PRN PRN PRN Reason: SOB &/OR WHEEZING Apixaban (Eliquis) 5 mg PO BID [facility] Last Admin: 11/04/18 21:40 Dose: 5 mg Aspirin (Ecotrin) 81 mg PO DAILYCM [facility] Last Admin: 11/04/18 08:31 Dose: 81 mg Bisacodyl (Dulcolax) 10 mg RECTAL DAILY PRN PRN Reason: Constipation Calamine/Phenol (Calmoseptine Ointment) 1 applic TOPICAL BID [facility]; Protocol Last Admin: 11/04/18 21:41 Dose: 1 applicatio Ciprofloxacin HCl (Ciloxan) 1 drop EACH EYE Q6 [facility] Last Admin: 11/05/18 06:08 Dose: 1 drop Ergocalciferol (Vitamin D) 50,000 unit PO QWEEK [facility] Furosemide (Lasix) 40 mg IV DAILY [facility] Last Admin: 11/04/18 08:31 Dose: 40 mg Gabapentin (Neurontin) 300 mg PO BIDCM [facility] Last Admin: 11/04/18 17:18 Dose: 300 mg Piperacillin Sod/Tazobactam Sod (Zosyn) 3.375 gm in 50 mls @ 12.5 mls/hr IV Q8 [facility] Last Admin: 11/05/18 06:08 Dose: 12.5 mls/hr Vancomycin IV Pharmacy to Dose (1 ea/ Sodium Chloride) 500 mls @ 250 mls/hr IV PRN PRN; Protocol PRN Reason: Rx to Dose Vancomycin HCl 1,500 mg/ (Sodium Chloride) 530 mls @ 250 mls/hr IV Q24H [facility] Last Admin: 11/04/18 12:03 Dose: 250 mls/hr Lactobacillus Acidophilus (Acidophilus) 1 tablet PO BID [facility] Last Admin: 11/04/18 21:40 Dose: 1 tablet Levothyroxine Sodium (Synthroid) 100 mcg PO DAILY@0600 [facility] Last Admin: 11/05/18 06:08 Dose: 100 mcg Magnesium Hydroxide (Milk Of Magnesia) 30 ml PO DAILY PRN PRN Reason: Constipation Multivitamins (Multivitamin) 1 tablet PO DAILY@0800 [facility] Last Admin: 11/04/18 08:31 Dose: 1 tablet Nutritional Formula (Lactose Free) (Ensure Enlive) 120 ml PO 4X/DAY [facility] Last Admin: 11/04/18 21:39 Dose: Not Given Ondansetron HCl (Zofran Odt) 4 mg PO Q8H PRN PRN PRN Reason: NAUSEA Last Admin: 11/04/18 15:14 Dose: 4 mg Pantoprazole Sodium (Protonix) 20 mg PO DAILY [facility] Last Admin: 11/04/18 08:31 Dose: 20 mg Polyethylene Glycol (Miralax) 17 gm PO DAILY [facility] Last Admin: 11/04/18 08:31 Dose: 17 gm Sodium Chloride () 5 - 15 ml IV UD PRN PRN Reason: SALINE FLUSH Last Admin: 11/03/18 22:40 Dose: 10 ml Temazepam (Restoril) 15 mg PO QHS [facility] Last Admin: 11/04/18 23:30 Dose: 15 mg Medical Necessity - Tobacco Use Smoking Status: Unknown if ever smoked Assessment/Plan All Active Problems Venous stasis ulcer of right lower extremity (Acute) Congestive heart failure (Acute) 82-year-old admitted from a nursing with a complaint of shortness of breath, fever and hypoxia. 1. Sepsis due to pneumonia and UTI resolving. on IV vancomycin and IV zosyn urine cultured Citrobacter youngae will de-escalate antibiotics to PO levofloxacin 2.Acute hypoxic respiratory failure due to health associated pneumonia and acute systolic CHF exacerbation still on 4L of oxygen continue breathing treatments and antibiotics titrate oxygen to maintain sats>92% use BIPAP prn breathing treatments 3. Acute diastolic CHF exacerbation: BNP is ~ 741. CXR as above. 2D echo(10/17): EF of 65% with stage 3 diastolic dysfunction being diuresed with IV lasix 40mg daily; creatine trended up to 1.5 will hold lasix and hydrate gently due to worsening PING 4. 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 will hold lasix and hydrate with IVF gently Currently being diuresed o.a of PING though patient does appear dry. WIll monitor Cr 5. Bilateral conjuctivitis: resolving. On ciprofloxacin eye drops 6. Chronic LE ulcers: present on admission. wound care nurse on board. Wound culture gram-negative rods and Staphylococcus species. 7. Afib: on aspirin and eliquis 8. Hypothyroidism; on synthroid 9. Microcytic, hypochromic anemia: Hemoglobin is 9.0. Will monitor. 10. COPD: on breathing treatment DVT prophylaxis; on eliquis Code status: DNRCCA Code Visit Inpatient E&M: 00145 [facility] Hosp L3
--- NOTE | 2018-11-05 10:04 | PN_ITS ---
Subjective: Patient seen and examined. She looks much more alert today. She still complains of shortness of breath though she is on 4 L of oxygen. She was jose athing comfortably at rest. She denies any fever or chills, any palpitations, any chest pain, abdominal pain, any diarrhea vomiting. Review of systems otherwise negative. Labs and vitals reviewed. Creatinine noted to have trended up slightly to 1.5. Leucocytosis has resolved and is down to 8.7. Vitals/I&O's: Vital Signs Temp Pulse Resp BP Pulse Ox 98.8 F 86 16 96/62 96 11/05/18 03:36 11/05/18 05:00 11/05/18 03:36 11/05/18 03:36 11/05/18 07:00 Oxygen Flow Rate (L/min) 4 Oxygen Delivery Method Nasal Cannula Weight: 246 lb 4.101 oz Body Mass Index (BMI) 41.3 Intake and Output for Last 24 Hours 11/03/18 11/04/18 11/05/18 23:59 23:59 23:59 Intake Total 585 / 585 1562 / 1562 Output Total 550 / 550 525 / 525 100 / 100 Balance 35 / 35 1037 / 1037 -100 / -100 General: Alert, Cooperative, No apparent distress, Lethargic HEENT: Atraumatic, PERRLA, - - erythema of left eye has resolved. Oral: Dry Mucosa Neck: Supple, No JVD, Negative Carotid Bruits Lungs: - -still has few coarse crackles bibasally. Cardiovascular: Regular rate, Regular Rhythm, Normal S1, Normal S2, No murmurs Abdomen: Bowel Sounds Present, Soft, Non Tender, Non-Distended, No Hepato- splenomegaly Extremities: - - both LEs wrapped in ANKIT bandage; has chronic LE ulcers. Skin: No rashes, - - as under extremities Musculoskeletal: No Tenderness to Palpation of Joints or Extremities Lymphatic: No Cervical, Supraclavicular, or Inguinal Adenopathy Neurological: Cranial nerves II-XII grossly intact Psych/Mental Status: Normal Affect, Appropriate Microbiology Past 72 Hours 11/03/18 12:00 Wound - Leg, Right Gram Stain - Final 11/03/18 12:00 Wound - Leg, Right Wound Culture - Preliminary Staphylococcus aureus Proteus mirabilis 11/03/18 12:00 Urine Catheter - Vitale Urine Culture - Final Citrobacter youngae 11/03/18 15:25 Interface Orders Respiratory Panel (PCR) - Final 11/03/18 12:00 Urine Catheter - Vitale Streptococcus pneumoniae Antigen (M - Final 11/03/18 12:00 Urine Catheter - Vitale Legionella Antigen - Final Laboratory Results 11/05/18 05:05: WBC 8.7, RBC 3.22 L, Hgb 9.0 L, Hct 31.6 L, MCV 98.1, MCH 28.0, MCHC 28.5 L, RDW 16.9 H, RDW Differential 57.7 H, Plt Count 238, MPV 10.1, Immature Gran % (Auto) 0.500, Neut % (Auto) 67.7, Lymph % (Auto) 20.8, [place] % (Auto) 5.8, Eos % (Auto) 4.9, Baso % (Auto) 0.3, Absolute Neuts (auto) 5.9, Absolute Lymphs (auto) 1.81, Total Counted Not Reportable 11/05/18 05:05: Sodium 136, Potassium 4.5, Chloride 99, Carbon Dioxide 30.0, Anion Gap 7, BUN 41 H, Creatinine 1.50 H, Estim Creat Clear Calc 25.40, Est GFR (MDRD) Af Amer 43 L, Est GFR (MDRD) Non-Af 35 L, BUN/Creatinine Ratio 27.3 H, Glucose 87, Calcium 8.0 L Current Medications Acetaminophen (Tylenol) 1,000 mg PO Q8H PRN PRN PRN Reason: PAIN Last Admin: 11/04/18 08:33 Dose: 1,000 mg Hydrocodone Bitart/Acetaminophen ([place] 5mg-325mg) 1 tablet PO Q8H PRN PRN PRN Reason: PAIN Last Admin: 11/04/18 23:30 Dose: 1 tablet Albuterol/Ipratropium (Duoneb) 3 ml INHALATION Q6H PRN PRN PRN Reason: SOB &/OR WHEEZING Apixaban (Eliquis) 5 mg PO BID [facility] Last Admin: 11/04/18 21:40 Dose: 5 mg Aspirin (Ecotrin) 81 mg PO DAILYCM [facility] Last Admin: 11/04/18 08:31 Dose: 81 mg Bisacodyl (Dulcolax) 10 mg RECTAL DAILY PRN PRN Reason: Constipation Calamine/Phenol (Calmoseptine Ointment) 1 applic TOPICAL BID [facility]; Protocol Last Admin: 11/04/18 21:41 Dose: 1 applicatio Ciprofloxacin HCl (Ciloxan) 1 drop EACH EYE Q6 [facility] Last Admin: 11/05/18 06:08 Dose: 1 drop Ergocalciferol (Vitamin D) 50,000 unit PO QWEEK [facility] Furosemide (Lasix) 40 mg IV DAILY [facility] Last Admin: 11/04/18 08:31 Dose: 40 mg Gabapentin (Neurontin) 300 mg PO BIDCM [facility] Last Admin: 11/04/18 17:18 Dose: 300 mg Piperacillin Sod/Tazobactam Sod (Zosyn) 3.375 gm in 50 mls @ 12.5 mls/hr IV Q8 [facility] Last Admin: 11/05/18 06:08 Dose: 12.5 mls/hr Vancomycin IV Pharmacy to Dose (1 ea/ Sodium Chloride) 500 mls @ 250 mls/hr IV PRN PRN; Protocol PRN Reason: Rx to Dose Vancomycin HCl 1,500 mg/ (Sodium Chloride) 530 mls @ 250 mls/hr IV Q24H [facility] Last Admin: 11/04/18 12:03 Dose: 250 mls/hr Lactobacillus Acidophilus (Acidophilus) 1 tablet PO BID [facility] Last Admin: 11/04/18 21:40 Dose: 1 tablet Levothyroxine Sodium (Synthroid) 100 mcg PO DAILY@0600 [facility] Last Admin: 11/05/18 06:08 Dose: 100 mcg Magnesium Hydroxide (Milk Of Magnesia) 30 ml PO DAILY PRN PRN Reason: Constipation Multivitamins (Multivitamin) 1 tablet PO DAILY@0800 [facility] Last Admin: 11/04/18 08:31 Dose: 1 tablet Nutritional Formula (Lactose Free) (Ensure Enlive) 120 ml PO 4X/DAY [facility] Last Admin: 11/04/18 21:39 Dose: Not Given Ondansetron HCl (Zofran Odt) 4 mg PO Q8H PRN PRN PRN Reason: NAUSEA Last Admin: 11/04/18 15:14 Dose: 4 mg Pantoprazole Sodium (Protonix) 20 mg PO DAILY [facility] Last Admin: 11/04/18 08:31 Dose: 20 mg Polyethylene Glycol (Miralax) 17 gm PO DAILY [facility] Last Admin: 11/04/18 08:31 Dose: 17 gm Sodium Chloride () 5 - 15 ml IV UD PRN PRN Reason: SALINE FLUSH Last Admin: 11/03/18 22:40 Dose: 10 ml Temazepam (Restoril) 15 mg PO QHS [facility] Last Admin: 11/04/18 23:30 Dose: 15 mg Medical Necessity - Tobacco Use Smoking Status: Unknown if ever smoked Assessment/Plan All Active Problems Venous stasis ulcer of right lower extremity (Acute) Congestive heart failure (Acute) 82-year-old admitted from a nursing with a complaint of shortness of breath, fever and hypoxia. 1. Sepsis due to pneumonia and UTI * resolving. * on IV vancomycin and IV zosyn * urine cultured Citrobacter youngae * will de-escalate antibiotics to PO levofloxacin * * * 2.Acute hypoxic respiratory failure due to health associated pneumonia and acute systolic CHF exacerbation * still on 4L of oxygen * continue breathing treatments and antibiotics * titrate oxygen to maintain sats>92% * use BIPAP prn * breathing treatments * 3. Acute diastolic CHF exacerbation: * BNP is ~ 741. * CXR as above. * 2D echo(10/17): EF of 65% with stage 3 diastolic dysfunction * being diuresed with IV lasix 40mg daily; creatine trended up to 1.5 * will hold lasix and hydrate gently due to worsening PING * 4. PING: Cr is 1.5, baseline Cr is ~ 0.8. will hold lasix and hydrate with IVF gently Currently being diuresed o.a of PING though patient does appear dry. WIll monitor Cr 5. Bilateral conjuctivitis: resolving. On ciprofloxacin eye drops * 6. Chronic LE ulcers: present on admission. wound care nurse on board. Wound culture gram-negative rods and Staphylococcus species. 7. Afib: on aspirin and eliquis 8. Hypothyroidism; on synthroid 9. Microcytic, hypochromic anemia: Hemoglobin is 9.0. Will monitor. 10. COPD: on breathing treatment DVT prophylaxis; on eliquis Code status: DNRCCA Code Visit Inpatient E&M: 21639 Subs Hosp L3
[2018-11-05] MEDS: Gabapentin 300 MG Capsule PO ×2 (10:35→18:13)
[2018-11-05] MEDS: Aspirin E.C. 81 MG Tablet PO (10:35)
[2018-11-05] MEDS: Polyethylene Glycol 3350 17 GM PACKET PO (10:36)
[2018-11-05] MEDS: APIXABAN 5 MG TABLET PO ×2 (10:36→23:17)
[2018-11-05] MEDS: Multivitamins,Therapeutic Tablet 1 TABLET PO (10:36)
[2018-11-05] MEDS: Menthol/Lanolin/Calamine/Znox 113 GM Tube 1 APPLIC TOPICAL ×2 (10:58→23:18)
[2018-11-05] MEDS: 0.9% Normal Saline 1,000 ML 100 ML IV (11:06)
[2018-11-05] MEDS: Pantoprazole Sodium 20 MG Tablet PO (11:08)
[2018-11-05] MEDS: Ondansetron ODT 4 MG Tablet PO (11:08)
[2018-11-05 13:30] LABS: Vancomycin, Trough Level 22.4 ug/mL (5.0-15.0)
[2018-11-05] MEDS: 0.9% NaCl Peripheral Flush Adult/Peds IV (13:49)
--- NOTE | 2018-11-05 14:35 | PCM.RX.CS ---
Consult Pharmacy has been consulted to manage selected antiobiotic: Vancomycin Type of Consult: Follow-up Suspected Infection: Pneumonia Prior Doses of Antibiotics Received/Current Regimen: VANCOMYCIN 1500MG IV Q24HRS: 11/03 @1256, 11/04 @1203 Labs: Sodium 136 mmol/L (136-145) 11/05/18 05:05 Potassium 4.5 mmol/L (3.5-5.1) 11/05/18 05:05 Chloride 99 mmol/L (98-107) 11/05/18 05:05 Carbon Dioxide 30.0 mmol/L (21.0-32.0) 11/05/18 05:05 Anion Gap 7 (5-15) 11/05/18 05:05 BUN 41 mg/dL (7-18) H 11/05/18 05:05 Creatinine 1.50 mg/dL (0.55-1.02) H 11/05/18 05:05 Est GFR (MDRD) Af Amer 43 mL/min (>60) L 11/05/18 05:05 Est GFR (MDRD) Non-Af 35 mL/min (>60) L 11/05/18 05:05 BUN/Creatinine Ratio 27.3 RATIO (10-20) H 11/05/18 05:05 Glucose 87 mg/dL (74-106) 11/05/18 05:05 Vancomycin Trough 22.4 ug/mL (5.0-15.0) H 11/05/18 12:30 Microbiology: Microbiology 11/03/18 10:55 Blood Culture (Wb) - Right Forearm Blood Culture - Preliminary No growth in 48 hours. 11/03/18 10:39 Blood Culture (Wb) - Anticubital Left Blood Culture - Preliminary No growth in 48 hours. 11/03/18 12:00 Wound - Leg, Right Gram Stain - Final 11/03/18 12:00 Wound - Leg, Right Wound Culture - Preliminary Staphylococcus aureus Proteus mirabilis 11/03/18 12:00 Urine Catheter - Vitale Urine Culture - Final Citrobacter youngae 11/03/18 15:25 Interface Orders Respiratory Panel (PCR) - Final 11/03/18 12:00 Urine Catheter - Vitale Streptococcus pneumoniae Antigen (M - Final 11/03/18 12:00 Urine Catheter - Vitale Legionella Antigen - Final Estimated Creatinine Clearance: 25ML/MIN Goal Trough: 15-20 mcg/mL Pharmacy Plan for Drug Dosing: The patient had a trough drawn which resulted in a value of 22.4 (drawn ~24hrs from last administered dose). The patient's dose for 11/05/18 was held due to elevated trough. Also of note, the patient had had a steady increase in SCr, which could also be contributing to the elevated trough. Will plan on holding vancomycin and checking a trough with AM labs on 11/06 to reassess dosing at that time. PLAN/RECOMMENDATIONS 1. Discontinue vancomycin 1500mg IV Q24hrs 2. Random vancomycin trough scheduled for 11/06/18 with AM labs 3. Pharmacy Service will continue to monitor and adjust dosing as required.
[2018-11-05] MEDS: HYDROcodone Bitartrate/Apap 5/325 Tablet PO (18:13)
[2018-11-05] MEDS: Acetaminophen 500 MG Tablet 1000 MG PO (23:31)
[2018-11-05] MEDS: Temazepam 15 MG Capsule PO (23:32)
[2018-11-06] VITALS (12 sets, daily range): BP systolic 96–115; BP diastolic 53–68; PULSE 77–87; RESP 18–24; TEMP 36.1–37.1; O2SAT 94–97
[2018-11-06] MEDS: Piperacil/Tazobactam 3.375 GM/50 ML ML IV (05:26)
[2018-11-06] MEDS: Levothyroxine 100 MCG Tablet PO (05:27)
[2018-11-06] MEDS: Ciprofloxacin 0.3% 2.5ml Bottle 1 DRP EACH EYE ×4 (05:29→23:14)
[2018-11-06 05:46] LABS: Absolute Lymphocyte Count 2.32 X10^3/ul (0.83-4.51); Basophil# 0.03 X10^3/uL; Basophil% 0.4 % (0-1); Eosinophil# 0.41 X10^3/uL; Eosinophils% 4.8 % (0-5); Hemoglobin 8.9 g/dl (12.0-15.0); Lymphocyte # 2.32 X10^3/ul (4.0); Lymphocyte % 27.3 % (19-41); Mean Corp Hgb Conc 28.7 g/gl (32-36); Mean Corpuscular Hgb 27.7 pg (27.0-32.0); Mean Corpuscular Volume 96.6 fL (81-99); Mean Platelet Vol. 9.2 fl (6.2-12.0); Monocyte# 0.74 X10^3/uL; Monocyte% 8.7 % (0-10); Neutrophil # 4.98 X10^3/uL (2.7-7.7); Neutrophil % 58.4 % (47-70); Platelet Count 234 K/mm3 (150-450); RBC Distribution Width CV 16.7 % (11.6-14.6); Red Blood Count 3.21 M/mm3 (4.2-5.4); White Blood Count 8.5 K/mm3 (4.4-11.0)
[2018-11-06 05:58] LABS: Anion Gap 7 (5-15); BUN 43 mg/dL (7-18); BUN/Creat Ratio 30.3 RATIO (10-20); Chloride 100 mmol/L (98-107); Creatinine, Serum 1.42 mg/dL (0.55-1.02); EST Glomerular Filtration Rate 38 mL/min (>60); Est Glom Filt Rate - Afr Amer 46 mL/min (>60); Estimated Creatinine Clearance 26.83 ml/min; Glucose 92 mg/dL (74-106); Potassium 4.8 mmol/L (3.5-5.1); Sodium Level 138 mmol/L (136-145)
[2018-11-06 06:13] LABS: Vancomycin, Random Level 20.1 ug/mL (0.0-15.0)
[2018-11-06 06:25] LABS: POSITIVE COUNT NO; POSITIVE DIFFERENTIAL NO; POSITIVE MORPHOLOGY NO
--- NOTE | 2018-11-06 08:08 | PHA.PHARE_ITS ---
Consult Pharmacy has been consulted to manage selected antiobiotic: Vancomycin Type of Consult: Follow-up Suspected Infection: Sepsis, Pneumonia Prior Doses of Antibiotics Received/Current Regimen: VANCOMYCIN 1500MG 11/04/18 @1203 Labs: Sodium 138 mmol/L (136-145) 11/06/18 05:15 Potassium 4.8 mmol/L (3.5-5.1) 11/06/18 05:15 Chloride 100 mmol/L (98-107) 11/06/18 05:15 Carbon Dioxide 31.0 mmol/L (21.0-32.0) 11/06/18 05:15 Anion Gap 7 (5-15) 11/06/18 05:15 BUN 43 mg/dL (7-18) H 11/06/18 05:15 Creatinine 1.42 mg/dL (0.55-1.02) H 11/06/18 05:15 Est GFR (MDRD) Af Amer 46 mL/min (>60) L 11/06/18 05:15 Est GFR (MDRD) Non-Af 38 mL/min (>60) L 11/06/18 05:15 BUN/Creatinine Ratio 30.3 RATIO (10-20) H 11/06/18 05:15 Glucose 92 mg/dL (74-106) 11/06/18 05:15 Vancomycin Trough 22.4 ug/mL (5.0-15.0) H 11/05/18 12:30 Random Vancomycin 20.1 ug/mL (0.0-15.0) H 11/06/18 05:15 Microbiology: Microbiology 11/03/18 12:00 Wound - Leg, Right Gram Stain - Final 11/03/18 12:00 Wound - Leg, Right Wound Culture - Preliminary Meth. resistant Staph. aureus Proteus mirabilis Acinetobacter baumannii 11/03/18 10:55 Blood Culture (Wb) - Right Forearm Blood Culture - Preliminary No growth in 48 hours. 11/03/18 10:39 Blood Culture (Wb) - Anticubital Left Blood Culture - Preliminary No growth in 48 hours. 11/03/18 12:00 Urine Catheter - Vitale Urine Culture - Final Citrobacter youngae 11/03/18 15:25 Interface Orders Respiratory Panel (PCR) - Final 11/03/18 12:00 Urine Catheter - Vitale Streptococcus pneumoniae Antigen (M - Final 11/03/18 12:00 Urine Catheter - Vitale Legionella Antigen - Final Weight used for dosin kg Estimated Creatinine Clearance: 27ML/MIN Goal Trough: 15-20 mcg/mL Pharmacy Plan for Drug Dosing: The patient had a random level drawn @0515, which resulted in a value of 20.1 (~41hrs from last administered dose). The patient's SCr has slightly improved to 1.42 today. Will plan on placing the patient on a q48hr dosing regimen. Estimated trough with new dosing ~16.8 per [facility] nomogram. Will draw another trough prior to the next dose of q48h dosing to reassess at that time. PLAN/RECOMMENDATIONS 1. Vancomycin 1500mg IV Q48hr to start 11/06/18 @1200 2. Trough scheduled 11/08/18 @1130 3. Pharmacy Service will continue to monitor and adjust dosing as required.
[2018-11-06] MEDS: 0.9% Normal Saline 1,000 ML 100 ML IV (08:22)
[2018-11-06] MEDS: Multivitamins,Therapeutic Tablet 1 TABLET PO (08:22)
[2018-11-06] MEDS: Aspirin E.C. 81 MG Tablet PO (08:22)
--- NOTE | 2018-11-06 09:46 | PCM.PN.HOSP ---
Subjective: Patient seen and examined. Patient has no complaints. She is a bit more confused today and she was now waking up from sleep. She denies any fever or chills, chest pain, abdominal pain, diarrhea or vomiting. Review of systems otherwise negative. Labs and vitals reviewed. Creatinine trended down slightly 1.42. Vitals/I&O's: Vital Signs Temp Pulse Resp BP Pulse Ox 98.7 F 81 20 H 106/66 97 11/06/18 05:34 11/06/18 07:00 11/06/18 05:34 11/06/18 05:34 11/06/18 05:34 Oxygen Flow Rate (L/min) 4 Oxygen Delivery Method Nasal Cannula Weight: 248 lb 10.903 oz Body Mass Index (BMI) 41.3 Intake and Output for Last 24 Hours 11/04/18 11/05/18 11/06/18 23:59 23:59 23:59 Intake Total 1562 / 1562 1848 / 1848 Output Total 525 / 525 875 / 875 Balance 1037 / 1037 973 / 973 General: Alert, drowsy, lethargic HEENT: Atraumatic, PERRLA, - - erythema of left eye has resolved. Oral: Dry Mucosa Neck: Supple, No JVD, Negative Carotid Bruits Lungs: - -still has very few coarse crackles bibasally. Lungs have improved significantly since admission Cardiovascular: Regular rate, Regular Rhythm, Normal S1, Normal S2, No murmurs Abdomen: Bowel Sounds Present, Soft, Non Tender, Non-Distended, No Hepato-splenomegaly Extremities: - - both LEs wrapped in ANKIT bandage; has chronic LE ulcers. Skin: No rashes, - - as under extremities Musculoskeletal: No Tenderness to Palpation of Joints or Extremities Lymphatic: No Cervical, Supraclavicular, or Inguinal Adenopathy Neurological: Cranial nerves II-XII grossly intact Psych/Mental Status: drowsy and lethargic Microbiology Past 72 Hours 11/03/18 12:00 Wound - Leg, Right Gram Stain - Final 11/03/18 12:00 Wound - Leg, Right Wound Culture - Preliminary Meth. resistant Staph. aureus Proteus mirabilis Acinetobacter baumannii 11/03/18 10:55 Blood Culture (Wb) - Right Forearm Blood Culture - Preliminary No growth in 48 hours. 11/03/18 10:39 Blood Culture (Wb) - Anticubital Left Blood Culture - Preliminary No growth in 48 hours. 11/03/18 12:00 Urine Catheter - Vitale Urine Culture - Final Citrobacter youngae 11/03/18 15:25 Interface Orders Respiratory Panel (PCR) - Final 11/03/18 12:00 Urine Catheter - Vitale Streptococcus pneumoniae Antigen (M - Final 11/03/18 12:00 Urine Catheter - Vitale Legionella Antigen - Final Laboratory Results 11/05/18 12:30: Vancomycin Trough 22.4 H 11/06/18 05:15: Sodium 138, Potassium 4.8, Chloride 100, Carbon Dioxide 31.0, Anion Gap 7, BUN 43 H, Creatinine 1.42 H, Estim Creat Clear Calc 26.83, Est GFR (MDRD) Af Amer 46 L, Est GFR (MDRD) Non-Af 38 L, BUN/Creatinine Ratio 30.3 H, Glucose 92, Calcium 8.0 L 11/06/18 05:15: Random Vancomycin 20.1 H 11/06/18 05:30: WBC 8.5, RBC 3.21 L, Hgb 8.9 L, Hct 31.0 L, MCV 96.6, MCH 27.7, MCHC 28.7 L, RDW 16.7 H, RDW Differential 59.0 H, Plt Count 234, MPV 9.2, Immature Gran % (Auto) 0.400, Neut % (Auto) 58.4, Lymph % (Auto) 27.3, [place] % (Auto) 8.7, Eos % (Auto) 4.8, Baso % (Auto) 0.4, Absolute Neuts (auto) 5.0, Absolute Lymphs (auto) 2.32, Total Counted Not Reportable Current Medications Acetaminophen (Tylenol) 1,000 mg PO Q8H PRN PRN PRN Reason: PAIN Last Admin: 11/05/18 23:31 Dose: 1,000 mg Hydrocodone Bitart/Acetaminophen ([place] 5mg-325mg) 1 tablet PO Q8H PRN PRN PRN Reason: PAIN Last Admin: 11/05/18 18:13 Dose: 1 tablet Albuterol/Ipratropium (Duoneb) 3 ml INHALATION Q6H PRN PRN PRN Reason: SOB &/OR WHEEZING Apixaban (Eliquis) 5 mg PO BID [facility] Last Admin: 11/05/18 23:17 Dose: 5 mg Aspirin (Ecotrin) 81 mg PO DAILYCM [facility] Last Admin: 11/06/18 08:22 Dose: 81 mg Bisacodyl (Dulcolax) 10 mg RECTAL DAILY PRN PRN Reason: Constipation Calamine/Phenol (Calmoseptine Ointment) 1 applic TOPICAL BID [facility]; Protocol Last Admin: 11/05/18 23:18 Dose: 1 applicatio Ciprofloxacin HCl (Ciloxan) 1 drop EACH EYE Q6 [facility] Last Admin: 11/06/18 05:29 Dose: 1 drop Ergocalciferol (Vitamin D) 50,000 unit PO QWEEK [facility]ap[facility]ontin) [facility] Last Admin: 11/06/18 08:22 Dose: 300 mg Piperacillin Sod/Tazobactam Sod (Zosyn) 3.375 gm in 50 mls @ 12.5 mls/hr IV Q8 [facility] Last Admin: 11/06/18 05:26 Dose: 12.5 mls/hr Vancomycin IV Pharmacy to Dose (1 ea/ Sodium Chloride) 500 mls @ 250 mls/hr IV PRN PRN; Protocol PRN Reason: Rx to Dose Vancomycin HCl 1,500 mg/ (Sodium Chloride) 530 mls @ 250 mls/hr IV Q48H [facility] Lactobacillus Acidophilus (Acidophilus) 1 tablet PO BID [facility] Last Admin: 11/05/18 23:17 Dose: 1 tablet Levothyroxine Sodium (Synthroid) 100 mcg PO DAILY@0600 [facility] Last Admin: 11/06/18 05:27 Dose: 100 mcg Magnesium Hydroxide (Milk Of Magnesia) 30 ml PO DAILY PRN PRN Reason: Constipation Multivitamins (Multivitamin) 1 tablet PO DAILY@0800 [facility] Last Admin: 11/06/18 08:22 Dose: 1 tablet Nutritional Formula (Lactose Free) (Ensure Enlive) 120 ml PO 4X/DAY [facility] Last Admin: 11/05/18 23:18 Dose: Not Given Ondansetron HCl (Zofran Odt) 4 mg PO Q8H PRN PRN PRN Reason: NAUSEA Last Admin: 11/05/18 11:08 Dose: 4 mg Pantoprazole Sodium (Protonix) 20 mg PO DAILY [facility] Last Admin: 11/05/18 11:08 Dose: 20 mg Polyethylene Glycol (Miralax) 17 gm PO DAILY [facility] Last Admin: 11/05/18 10:36 Dose: 17 gm Sodium Chloride () 5 - 15 ml IV UD PRN PRN Reason: SALINE FLUSH Last Admin: 11/05/18 13:49 Dose: 10 ml Temazepam (Restoril) 15 mg PO QHS [facility] Last Admin: 11/05/18 23:32 Dose: 15 mg Medical Necessity - Tobacco Use Smoking Status: Unknown if ever smoked Assessment/Plan All Active Problems Venous stasis ulcer of right lower extremity (Acute) Congestive heart failure (Acute) 82-year-old admitted from a nursing with a complaint of shortness of breath, fever and hypoxia. 1. Sepsis due to pneumonia and UTI resolving. on IV vancomycin and IV zosyn urine cultured Citrobacter youngae continue IV antibiotics for today and switch to PO antibioitics 2.Acute on chronic hypoxic respiratory failure due to health associated pneumonia and acute systolic CHF exacerbation still on 4L of oxygen; on 2-4L of oxygen in the [facility] continue breathing treatments and antibiotics titrate oxygen to maintain sats>92% use BIPAP prn breathing treatments 3. Acute diastolic CHF exacerbation: BNP is ~ 741. CXR as above. 2D echo(10/17): EF of 65% with stage 3 diastolic dysfunction lasix held o/a of worsening PING 4. PING: Cr is 1.42 today, baseline Cr is ~ 0.8. being gently hydrated with IVF. 5. Bilateral conjuctivitis: resolving. On ciprofloxacin eye drops 6. Chronic LE ulcers: present on admission. wound care nurse on board. Wound cultured Proteus mirabilis, Acinetobacter baumanii and MRSA on IV vancomycin and IV zosyn 7. Afib: on aspirin and eliquis 8. Hypothyroidism; on synthroid 9. Microcytic, hypochromic anemia: Hemoglobin is 8.9. Will monitor. 10. COPD: on breathing treatment DVT prophylaxis; on eliquis Code status: DNRCCA Code Visit Inpatient E&M: 57860 [facility] Hosp L3
[2018-11-06] MEDS: Bisacodyl 10 MG Suppository RECTAL (09:51)
[2018-11-06] MEDS: Menthol/Lanolin/Calamine/Znox 113 GM Tube 1 APPLIC TOPICAL ×2 (09:52→21:20)
--- NOTE | 2018-11-06 09:52 | PN_ITS ---
Subjective: Patient seen and examined. Patient has no complaints. She is a bit more confused today and she was now waking up from sleep. She denies any fever or chills, chest pain, abdominal pain, diarrhea or vomiting. Review of systems otherwise negative. Labs and vitals reviewed. Creatinine trended down slightly 1.42. Vitals/I&O's: Vital Signs Temp Pulse Resp BP Pulse Ox 98.7 F 81 20 H 106/66 97 11/06/18 05:34 11/06/18 07:00 11/06/18 05:34 11/06/18 05:34 11/06/18 05:34 Oxygen Flow Rate (L/min) 4 Oxygen Delivery Method Nasal Cannula Weight: 248 lb 10.903 oz Body Mass Index (BMI) 41.3 Intake and Output for Last 24 Hours 11/04/18 11/05/18 11/06/18 23:59 23:59 23:59 Intake Total 1562 / 1562 1848 / 1848 Output Total 525 / 525 875 / 875 Balance 1037 / 1037 973 / 973 General: Alert, drowsy, lethargic HEENT: Atraumatic, PERRLA, - - erythema of left eye has resolved. Oral: Dry Mucosa Neck: Supple, No JVD, Negative Carotid Bruits Lungs: - -still has very few coarse crackles bibasally. Lungs have improved significantly since admission Cardiovascular: Regular rate, Regular Rhythm, Normal S1, Normal S2, No murmurs Abdomen: Bowel Sounds Present, Soft, Non Tender, Non-Distended, No Hepato- splenomegaly Extremities: - - both LEs wrapped in ANKIT bandage; has chronic LE ulcers. Skin: No rashes, - - as under extremities Musculoskeletal: No Tenderness to Palpation of Joints or Extremities Lymphatic: No Cervical, Supraclavicular, or Inguinal Adenopathy Neurological: Cranial nerves II-XII grossly intact Psych/Mental Status: drowsy and lethargic Microbiology Past 72 Hours 11/03/18 12:00 Wound - Leg, Right Gram Stain - Final 11/03/18 12:00 Wound - Leg, Right Wound Culture - Preliminary Meth. resistant Staph. aureus Proteus mirabilis Acinetobacter baumannii 11/03/18 10:55 Blood Culture (Wb) - Right Forearm Blood Culture - Preliminary No growth in 48 hours. 11/03/18 10:39 Blood Culture (Wb) - Anticubital Left Blood Culture - Preliminary No growth in 48 hours. 11/03/18 12:00 Urine Catheter - Vitale Urine Culture - Final Citrobacter youngae 11/03/18 15:25 Interface Orders Respiratory Panel (PCR) - Final 11/03/18 12:00 Urine Catheter - Vitale Streptococcus pneumoniae Antigen (M - Final 11/03/18 12:00 Urine Catheter - Vitale Legionella Antigen - Final Laboratory Results 11/05/18 12:30: Vancomycin Trough 22.4 H 11/06/18 05:15: Sodium 138, Potassium 4.8, Chloride 100, Carbon Dioxide 31.0, Anion Gap 7, BUN 43 H, Creatinine 1.42 H, Estim Creat Clear Calc 26.83, Est GFR (MDRD) Af Amer 46 L, Est GFR (MDRD) Non-Af 38 L, BUN/Creatinine Ratio 30.3 H, Glucose 92, Calcium 8.0 L 11/06/18 05:15: Random Vancomycin 20.1 H 11/06/18 05:30: WBC 8.5, RBC 3.21 L, Hgb 8.9 L, Hct 31.0 L, MCV 96.6, MCH 27.7, MCHC 28.7 L, RDW 16.7 H, RDW Differential 59.0 H, Plt Count 234, MPV 9.2, Immature Gran % (Auto) 0.400, Neut % (Auto) 58.4, Lymph % (Auto) 27.3, [place] % (Auto) 8.7, Eos % (Auto) 4.8, Baso % (Auto) 0.4, Absolute Neuts (auto) 5.0, Absolute Lymphs (auto) 2.32, Total Counted Not Reportable Current Medications Acetaminophen (Tylenol) 1,000 mg PO Q8H PRN PRN PRN Reason: PAIN Last Admin: 11/05/18 23:31 Dose: 1,000 mg Hydrocodone Bitart/Acetaminophen ([place] 5mg-325mg) 1 tablet PO Q8H PRN PRN PRN Reason: PAIN Last Admin: 11/05/18 18:13 Dose: 1 tablet Albuterol/Ipratropium (Duoneb) 3 ml INHALATION Q6H PRN PRN PRN Reason: SOB &/OR WHEEZING Apixaban (Eliquis) 5 mg PO BID [facility] Last Admin: 11/05/18 23:17 Dose: 5 mg Aspirin (Ecotrin) 81 mg PO DAILYCM [facility] Last Admin: 11/06/18 08:22 Dose: 81 mg Bisacodyl (Dulcolax) 10 mg RECTAL DAILY PRN PRN Reason: Constipation Calamine/Phenol (Calmoseptine Ointment) 1 applic TOPICAL BID [facility]; Protocol Last Admin: 11/05/18 23:18 Dose: 1 applicatio Ciprofloxacin HCl (Ciloxan) 1 drop EACH EYE Q6 [facility] Last Admin: 11/06/18 05:29 Dose: 1 drop Ergocalciferol (Vitamin D) 50,000 unit PO QWEEK [facility] Last Admin: 11/06/18 08:22 Dose: 300 mg Piperacillin Sod/Tazobactam Sod (Zosyn) 3.375 gm in 50 mls @ 12.5 mls/hr IV Q8 [facility] Last Admin: 11/06/18 05:26 Dose: 12.5 mls/hr Vancomycin IV Pharmacy to Dose (1 ea/ Sodium Chloride) 500 mls @ 250 mls/hr IV PRN PRN; Protocol PRN Reason: Rx to Dose Vancomycin HCl 1,500 mg/ (Sodium Chloride) 530 mls @ 250 mls/hr IV Q48H [facility] Lactobacillus Acidophilus (Acidophilus) 1 tablet PO BID [facility] Last Admin: 11/05/18 23:17 Dose: 1 tablet Levothyroxine Sodium (Synthroid) 100 mcg PO DAILY@0600 [facility] Last Admin: 11/06/18 05:27 Dose: 100 mcg Magnesium Hydroxide (Milk Of Magnesia) 30 ml PO DAILY PRN PRN Reason: Constipation Multivitamins (Multivitamin) 1 tablet PO DAILY@0800 [facility] Last Admin: 11/06/18 08:22 Dose: 1 tablet Nutritional Formula (Lactose Free) (Ensure Enlive) 120 ml PO 4X/DAY [facility] Last Admin: 11/05/18 23:18 Dose: Not Given Ondansetron HCl (Zofran Odt) 4 mg PO Q8H PRN PRN PRN Reason: NAUSEA Last Admin: 11/05/18 11:08 Dose: 4 mg Pantoprazole Sodium (Protonix) 20 mg PO DAILY [facility] Last Admin: 11/05/18 11:08 Dose: 20 mg Polyethylene Glycol (Miralax) 17 gm PO DAILY [facility] Last Admin: 11/05/18 10:36 Dose: 17 gm Sodium Chloride () 5 - 15 ml IV UD PRN PRN Reason: SALINE FLUSH Last Admin: 11/05/18 13:49 Dose: 10 ml Temazepam (Restoril) 15 mg PO QHS [facility] Last Admin: 11/05/18 23:32 Dose: 15 mg Medical Necessity - Tobacco Use Smoking Status: Unknown if ever smoked Assessment/Plan All Active Problems Venous stasis ulcer of right lower extremity (Acute) Congestive heart failure (Acute) 82-year-old admitted from a nursing with a complaint of shortness of breath, fever and hypoxia. 1. Sepsis due to pneumonia and UTI * resolving. * on IV vancomycin and IV zosyn * urine cultured Citrobacter youngae * continue IV antibiotics for today and switch to PO antibioitics * * 2.Acute on chronic hypoxic respiratory failure due to health associated pneumonia and acute systolic CHF exacerbation * still on 4L of oxygen; on 2-4L of oxygen in the [facility] * continue breathing treatments and antibiotics * titrate oxygen to maintain sats>92% * use BIPAP prn * breathing treatments * 3. Acute diastolic CHF exacerbation: * BNP is ~ 741. * CXR as above. * 2D echo(10/17): EF of 65% with stage 3 diastolic dysfunction * lasix held o/a of worsening PING * * 4. PING: * Cr is 1.42 today, baseline Cr is ~ 0.8. * being gently hydrated with IVF. * 5. Bilateral conjuctivitis: resolving. On ciprofloxacin eye drops * 6. Chronic LE ulcers: * present on admission. * wound care nurse on board. * Wound cultured Proteus mirabilis, Acinetobacter baumanii and MRSA * on IV vancomycin and IV zosyn * 7. Afib: on aspirin and eliquis 8. Hypothyroidism; on synthroid 9. Microcytic, hypochromic anemia: Hemoglobin is 8.9. Will monitor. 10. COPD: on breathing treatment DVT prophylaxis; on eliquis Code status: DNRCCA Code Visit Inpatient E&M: 16185 [facility] Hosp L3
[2018-11-06] MEDS: APIXABAN 5 MG TABLET PO ×2 (09:53→21:19)
--- NOTE | 2018-11-06 10:17 | NURSING ---
wound photo: right medial lower leg
--- NOTE | 2018-11-06 10:18 | NURSING ---
wound photo: right posterolateral lower leg
--- NOTE | 2018-11-06 10:51 | CASEMGMT ---
Faxed clinicals to [facility]. Loraine ORDOENZ CARE DIRECTOR
--- NOTE | 2018-11-06 13:07 | PCM.HP.ID ---
Problem List (1) Pneumonia Status: Acute Reason for Consult: pneumonia Consulted by: Dr. Doshi History of Present Illness: The patient is a 82 year old F who presented from [facility] with acute onset of hypoxia, fever, altered mental status. No recent outpt abx. Taken to ED 11/03, admitted on vanc/zosyn. Found to have pneumonia, uti, and infected R calf ulcer. Fever resolved, wbc back to normal. Mental status remains poor and is unable to answer questions. ROS unobtainable. 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) Vitamin D deficiency (Chronic) Neuropathy (Chronic) Malnutrition (Chronic) Leg ulcer, left (Chronic) Lymphedema of lower extremity (Chronic) History of myocardial infarction (Chronic) Incontinence of urine (Chronic) Hypertension (Chronic) Morbid obesity (Chronic) Hypothyroidism (Chronic) Hypercholesterolemia (Chronic) Osteoarthritis (arthritis due to wear and tear of joints) (Chronic) Rheumatoid arthritis (Chronic) Allergies/Adverse Reactions: Allergies No Known Allergies Allergy (Verified 06/05/18 13:06) Home Medications: Ambulatory Orders Medication Instructions Recorded Acetaminophen [Pain Relief Extra 1,000 mg PO Q8H PRN PRN 04/25/17 Strength] Aspirin [Aspir-Low] 81 mg PO DAILY 04/25/17 Gabapentin [Neurontin] 300 mg PO BIDCM 04/25/17 Levothyroxine [Synthroid] 100 mcg PO DAILY@0600 08/01/17 Ondansetron [Zofran Odt] 4 mg PO Q8H PRN PRN #90 tab 06/14/18 Pantoprazole Sodium [Protonix] 20 mg PO DAILY tablet 06/14/18 Apixaban [Eliquis] 5 mg PO BID 10/01/18 Ergocalciferol (Vitamin D2) 50,000 unit PO QWEEK 10/01/18 [Drisdol] Hydrocodone Bitart/Apap 5-325 1 tablet PO Q8H PRN PRN 10/01/18 [[place] 5/325] L. Rhamnosus GG/Inulin [Culturelle 1 each PO BID 10/01/18 Capsule] Multivitamin [Multiple Vitamins] 1 each PO DAILY 10/01/18 Polyethylene Glycol 3350 [Miralax] 17 gm PO DAILY 10/01/18 Temazepam [Restoril] 15 mg PO QHS 10/01/18 Menthol/Lanolin/Calamine/Znox 1 applic TOPICAL BID tube 10/05/18 [Calmoseptine Ointment] Ipratropium/Albuterol Sulfate 3 ml INHALATION Q6H PRN PRN 11/01/18 [Duoneb] Bisacodyl [Biscolax] 10 mg RC DAILY PRN 11/03/18 Furosemide [Lasix] 40 mg PO BID 11/03/18 Magnesium Hydroxide [Milk Of 30 ml PO DAILY PRN 11/03/18 Magnesia] Melatonin 4 mg PO QHS PRN 11/03/18 - Social History SMOKING STATUS:: Unknow if ever smoked Vital Signs Temp Pulse Resp BP Pulse Ox 97.9 F 87 20 H 103/53 L 96 11/06/18 11:34 11/06/18 11:34 11/06/18 11:34 11/06/18 11:34 11/06/18 11:34 Oxygen Flow Rate (L/min) 4 Oxygen Delivery Method Nasal Cannula Weight: 112.8 kg Body Mass Index (BMI) 41.3 Microbiology Past 72 Hours 11/03/18 12:00 Gram Stain - Final Wound - Leg, Right Wound Culture - Preliminary Meth. resistant Staph. aureus Proteus mirabilis Acinetobacter baumannii 11/03/18 10:55 Blood Culture - Preliminary Blood Culture (Wb) - Right Forearm No growth in 48 hours. 11/03/18 10:39 Blood Culture - Preliminary Blood Culture (Wb) - Anticubital Left No growth in 48 hours. 11/03/18 12:00 Urine Culture - Final Urine Catheter - Vitale Citrobacter youngae 11/03/18 15:25 Respiratory Panel (PCR) - Final Interface Orders 11/03/18 12:00 Streptococcus pneumoniae Antigen (M - Final Urine Catheter - Vitale 11/03/18 12:00 Legionella Antigen - Final Urine Catheter - Vitale Laboratory Tests Past 24 Hrs 11/05/18 11/06/18 11/06/18 12:30 05:15 05:15 WBC RBC Hgb Hct MCV MCH MCHC RDW RDW Differential Plt Count MPV Immature Gran % (Auto) Neut % (Auto) Lymph % (Auto) [place] % (Auto) Eos % (Auto) Baso % (Auto) Absolute Neuts (auto) Absolute Lymphs (auto) Total Counted Sodium 138 Potassium 4.8 Chloride 100 Carbon Dioxide 31.0 Anion Gap 7 BUN 43 H Creatinine 1.42 H Estim Creat Clear Calc 26.83 Est GFR (MDRD) Af Amer 46 L Est GFR (MDRD) Non-Af 38 L BUN/Creatinine Ratio 30.3 H Glucose 92 Calcium 8.0 L Vancomycin Trough 22.4 H Random Vancomycin 20.1 H 11/06/18 05:30 WBC 8.5 RBC 3.21 L Hgb 8.9 L Hct 31.0 L MCV 96.6 MCH 27.7 MCHC 28.7 L RDW 16.7 H RDW Differential 59.0 H Plt Count 234 MPV 9.2 Immature Gran % (Auto) 0.400 Neut % (Auto) 58.4 Lymph % (Auto) 27.3 [place] % (Auto) 8.7 Eos % (Auto) 4.8 Baso % (Auto) 0.4 Absolute Neuts (auto) 5.0 Absolute Lymphs (auto) 2.32 Total Counted Not Reportable Sodium Potassium Chloride Carbon Dioxide Anion Gap BUN Creatinine Estim Creat Clear Calc Est GFR (MDRD) Af Amer Est GFR (MDRD) Non-Af BUN/Creatinine Ratio Glucose Calcium Vancomycin Trough Random Vancomycin - Other Studies Radiology: [] reviewed Other Studies: [] Route of nutrition/ use of supplements: [] Nutritional Intake: [] IV Site: [] Vitale Catheter: [] - Physical Exam General: Lethargic - able to follow some commands HEENT: Atraumatic, PERRLA, EOMI Neck: Supple, No Nodes Lungs: Diminished Cardiovascular: Regular rate, Regular Rhythm Abdomen: Soft, Non Tender, Non-Distended Extremities: Edema - mild BLE Skin: Ulcer/ Wound - R calf wound, reviewed photos IV Site: Peripheral Musculoskeletal: No Tenderness to Palpation of Joints or Extremities - Assessment/Plan Antibiotics: [] Assessment/Plan: [] sepsis due to CAP - improved. On vanc/zosyn. Fever and leukocytosis resolved. Narrow abx to po doxy/omnicef, plan on stop date 11/10/18. complicated citrobacter uti - abx as above infected R calf wound - cx with AcB, proteus, and MRSA. Abx as above and local wound care. Will follow, thank you.
[2018-11-06] MEDS: Acetaminophen 500 MG Tablet 1000 MG PO (21:04)
[2018-11-06] MEDS: Cefdinir 300 MG Capsule PO (21:19)
[2018-11-06] MEDS: Doxycycline 100 MG CAPSULE PO (21:19)
[2018-11-06] MEDS: Temazepam 15 MG Capsule PO (21:19)
[2018-11-07] VITALS (8 sets, daily range): BP systolic 105–148; BP diastolic 68–79; PULSE 77–87; RESP 18; TEMP 36.3–37.1; O2SAT 94–96
[2018-11-07] MEDS: Ciprofloxacin 0.3% 2.5ml Bottle 1 DRP EACH EYE ×2 (05:11→11:22)
[2018-11-07 06:15] LABS: Basophil# 0.04 X10^3/uL; Basophil% 0.6 % (0-1); Eosinophil# 0.21 X10^3/uL; Hematocrit 32.6 % (37-47); Hemoglobin 9.2 g/dl (12.0-15.0); Mean Corp Hgb Conc 28.2 g/gl (32-36); Mean Corpuscular Hgb 27.5 pg (27.0-32.0); Mean Corpuscular Volume 97.3 fL (81-99); Mean Platelet Vol. 9.5 fl (6.2-12.0); Monocyte# 0.65 X10^3/uL; Monocyte% 9.3 % (0-10); Neutrophil # 3.98 X10^3/uL (2.7-7.7); Neutrophil % 56.8 % (47-70); Platelet Count 252 K/mm3 (150-450); RBC Distribution Width CV 16.6 % (11.6-14.6); RBC Distribution Width SD 58.6 fl (35.1-43.9); Red Blood Count 3.35 M/mm3 (4.2-5.4)
[2018-11-07 06:20] LABS: POSITIVE COUNT NO; POSITIVE DIFFERENTIAL NO; POSITIVE MORPHOLOGY NO
[2018-11-07 06:34] LABS: Anion Gap 6 (5-15); BUN 39 mg/dL (7-18); BUN/Creat Ratio 31.2 RATIO (10-20); Calcium,Total 8.4 mg/dL (8.5-10.1); Chloride 101 mmol/L (98-107); Creatinine, Serum 1.25 mg/dL (0.55-1.02); EST Glomerular Filtration Rate 44 mL/min (>60); Est Glom Filt Rate - Afr Amer 53 mL/min (>60); Estimated Creatinine Clearance 30.48 ml/min; Glucose 85 mg/dL (74-106); Potassium 4.7 mmol/L (3.5-5.1); Sodium Level 137 mmol/L (136-145)
[2018-11-07] MEDS: Pantoprazole Sodium 20 MG Tablet PO (09:38)
[2018-11-07] MEDS: Cefdinir 300 MG Capsule PO (09:39)
[2018-11-07] MEDS: Polyethylene Glycol 3350 17 GM PACKET PO (09:39)
[2018-11-07] MEDS: Doxycycline 100 MG CAPSULE PO (09:39)
[2018-11-07] MEDS: Menthol/Lanolin/Calamine/Znox 113 GM Tube 1 APPLIC TOPICAL (09:39)
[2018-11-07] MEDS: APIXABAN 5 MG TABLET PO (09:39)
--- NOTE | 2018-11-07 10:19 | PCM.TXEXTCAR ---
- Diet 11/03/18 13:26 Diet: Cardiac/Low Cholesterol Food consistency:: Regular Liquid Consistency:: Regular/Thin - Routine Orders/Code Status Enema Type: Fleetz Enema Frequency: Daily PRN Suppository Type: Dulcolax 10mg Suppository Frequency: Daily PRN O2 Liters per Minute: 2-4 O2 Frequency: Continuous Keep PO Greater than or Equal to (%): 92 - Wound(s) Coccyx Wound Type: Skin Tear right posterolateral lower leg Wound Type: nonhealing stasis ulcer Dressing Change: AntiMicrobial (Aquacel AG, etc) - Therapies Weight Bearing: Weight bearing as tolerated Physical Therapy: Eval and Treat Occupational Therapy: Eval and Treat - Allergies/Procedures Done in Hospital Allergies/Adverse Reactions: Allergies No Known Allergies Allergy (Verified 06/05/18 13:06) Procedures: None - Type of Care/Length of Stay Estimated LOS: More Than 30 Days Type of Care Needed: Skilled Rehab Potential: Fair Prognosis: Fair - Additional Orders/Day of Discharge Day of Discharge: 11/07/18 - Dietary and Speech Recommendations Dietitian Recommendations/Changes: Rec diet change to Cardiac / low sodium w/ fluid restriction as needed if PO improves at meals. Rec Carlo bid to help w/ skin healing. - Follow Up Care Primary Care Physician: Ramirez Curran MD [Primary Care Provider] - Please follow up with your Primary Care Physician in: one week
--- NOTE | 2018-11-07 10:23 | TREXTCAR_ITS ---
- Diet 11/03/18 13:26 Diet: Cardiac/Low Cholesterol Food consistency:: Regular Liquid Consistency:: Regular/Thin - Routine Orders/Code Status Enema Type: Fleetz Enema Frequency: Daily PRN Suppository Type: Dulcolax 10mg Suppository Frequency: Daily PRN O2 Liters per Minute: 2-4 O2 Frequency: Continuous Keep PO Greater than or Equal to (%): 92 - Wound(s) Coccyx Wound Type: Skin Tear right posterolateral lower leg Wound Type: nonhealing stasis ulcer Dressing Change: AntiMicrobial (Aquacel AG, etc) - Therapies Weight Bearing: Weight bearing as tolerated Physical Therapy: Eval and Treat Occupational Therapy: Eval and Treat - Allergies/Procedures Done in Hospital Allergies/Adverse Reactions: Allergies No Known Allergies Allergy (Verified 06/05/18 13:06) Procedures: None - Type of Care/Length of Stay Estimated LOS: More Than 30 Days Type of Care Needed: Skilled Rehab Potential: Fair Prognosis: Fair - Additional Orders/Day of Discharge Day of Discharge: 11/07/18 - Dietary and Speech Recommendations Dietitian Recommendations/Changes: Rec diet change to Cardiac / low sodium w/ fl uid restriction as needed if PO improves at meals. Rec Carlo bid to help w/ skin healing. - Follow Up Care Primary Care Physician: Ramirez Curran MD [Primary Care Provider] - Please follow up with your Primary Care Physician in: one week
--- NOTE | 2018-11-07 10:25 | PCM.DC.SUM ---
Discharge Date and Diagnosis Date of Admission: 11/03/18 Date of Discharge: 11/07/18 - Primary Discharge Diagnosis Active and Suspected Problems Pneumonia (Acute) acute on chronic hypoxic respiratory failure due to pneumonia - Secondary Discharge Diagnosis Chronic Problems Coronary artery disease (Chronic) Atrial fibrillation (Chronic) COPD (chronic obstructive pulmonary disease) (Chronic) Sleep apnea (Chronic) GERD (gastroesophageal reflux disease) (Chronic) Migraine (Chronic) Obesity (Chronic) Immobility (Chronic) Heart failure with preserved ejection fraction (Chronic) Fracture of fifth metatarsal bone of left foot (Chronic) Delayed wound healing (Chronic) 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) Vitamin D deficiency (Chronic) Neuropathy (Chronic) Malnutrition (Chronic) Leg ulcer, left (Chronic) Lymphedema of lower extremity (Chronic) History of myocardial infarction (Chronic) Incontinence of urine (Chronic) Hypertension (Chronic) Morbid obesity (Chronic) Hypothyroidism (Chronic) Hypercholesterolemia (Chronic) Osteoarthritis (arthritis due to wear and tear of joints) (Chronic) Rheumatoid arthritis (Chronic) Hospital Course and Treatment Imaging Results: Diagnostic Data Chest X-Ray 11/03/18 10:39 IMPRESSION: Cardiomegaly and persistent evidence for pulmonary congestion and airspace consolidation. 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 Oxygen level came up to the 90s after she was put on 4 L of oxygen. She was brought in to the ED where she was noted to be febrile and tachypneic as well. She admitted to being short of breath and feeling her heart racing. She also admitted to a fever but denied any chills. Patient was quite lethargic in the ED but was able to answer questions. In the ED she was noted to be febrile with temperature peaking at 102.1 Fahrenheit and she was tachypneic as well. She was on 4 L of oxygen by nonrebreather mask at time of review. CBC does show white cell count of 25 and hemoglobin of 9.4. Platelets were normal. BMP showed creatinine of 1.19 and bicarb of 33. Chest x-ray showed cardiomegaly and persistent evidence for pulmonary congestion and airspace consolidation. UA showed evidence of UTI. She is being admitted to manage for acute hypoxic respiratory failure and sepsis due to health associated pneumonia and UTI as well as acute systolic CHF exacerbation. She was diuresedwith IV lasix and started on IV vancomycin and zosyn. White cell count trended down leukocytosis resolved. She developed AK I with creatinine trended up to 1.5. Therefore diuresis was stopped and she was started on gentle hydration with IV fluid. She required 4 L of oxygen was in the hospital. Urine culture Citrobacter youngae and chronic leg ulcers cultured Proteus, Acinectobacter and MRSA. ID was consulted and she was transitioned from IV vancomycin and IV zosyn to PO Omnicef and PO doxycycline till 11/10/17. Patient's Cr trended down to 1.25. she was discharged back to her SNF on 11/07/18 on PO Omnicef and PO Doxycycline. She is to follow up with her PCP. Patient seen and examined prior to discharge. She was confused and just mumbling. Unable to do review of systems on account of confusion. o/e: Vital Signs Height 5 ft 4 in Weight: 248 lb 10.903 oz Weight in Pounds 248.7 lbs Pulse Ox 94 Temperature 97.4 F Pulse Rate 81 Respiratory Rate 18 Blood Pressure [2nd BP] 96/52 Blood Pressure 125/68 Blood Pressure Position [2nd Semi-Fowlers BP] Blood Pressure Position Semi-Fowlers [] General: Alert, drowsy, lethargic HEENT: Atraumatic, PERRLA, - - erythema of left eye has resolved. Oral: Dry Mucosa Neck: Supple, No JVD, Negative Carotid Bruits Lungs: - -few coarse crackles bibasally. Lungs have improved significantly since admission. on 4L of oxygen Cardiovascular: Regular rate, Regular Rhythm, Normal S1, Normal S2, No murmurs Abdomen: Bowel Sounds Present, Soft, Non Tender, Non-Distended, No Hepato-splenomegaly Extremities: - - both LEs wrapped in ANKIT bandage; has chronic LE ulcers. Skin: No rashes, - - as under extremities Musculoskeletal: No Tenderness to Palpation of Joints or Extremities Lymphatic: No Cervical, Supraclavicular, or Inguinal Adenopathy Neurological: Cranial nerves II-XII grossly intact Psych/Mental Status: confused Plan as described above. She is to continue with oxygen in the SNF, to titrate to baseline of 2-4L to maintain sats>92%. - Physical Exam Vital Signs Temp Pulse Resp BP Pulse Ox 97.4 F L 77 18 105/79 96 11/07/18 09:48 11/07/18 09:48 11/07/18 09:48 11/07/18 09:48 11/07/18 09:48 Oxygen Flow Rate (L/min) 4 Oxygen Delivery Method Nasal Cannula Weight: 248 lb 10.903 oz Body Mass Index (BMI) 41.3 Intake and Output for Last 24 Hours 11/05/18 11/06/18 11/07/18 23:59 23:59 23:59 Intake Total 1848 / 1848 1650 / 1650 Output Total 875 / 875 825 / 825 150 / 150 Balance 973 / 973 825 / 825 -150 / -150 Microbiology Past 72 Hours 11/03/18 12:00 Gram Stain - Final Wound - Leg, Right Wound Culture - Final Meth. resistant Staph. aureus Proteus mirabilis Acinetobacter baumannii 11/03/18 10:55 Blood Culture - Preliminary Blood Culture (Wb) - Right Forearm No growth in 48 hours. 11/03/18 10:39 Blood Culture - Preliminary Blood Culture (Wb) - Anticubital Left No growth in 48 hours. 11/03/18 12:00 Urine Culture - Final Urine Catheter - Vitale Citrobacter youngae 11/03/18 15:25 Respiratory Panel (PCR) - Final Interface Orders Laboratory Tests Past 24 Hrs 11/07/18 11/07/18 05:30 05:30 WBC 7.0 RBC 3.35 L Hgb 9.2 L Hct 32.6 L MCV 97.3 MCH 27.5 MCHC 28.2 L RDW 16.6 H RDW Differential 58.6 H Plt Count 252 MPV 9.5 Immature Gran % (Auto) 0.300 Neut % (Auto) 56.8 Lymph % (Auto) 30.0 [place] % (Auto) 9.3 Eos % (Auto) 3.0 Baso % (Auto) 0.6 Absolute Neuts (auto) 4.0 Absolute Lymphs (auto) 2.10 Total Counted Not Reportable Sodium 137 Potassium 4.7 Chloride 101 Carbon Dioxide 30.0 Anion Gap 6 BUN 39 H Creatinine 1.25 H Estim Creat Clear Calc 30.48 Est GFR (MDRD) Af Amer 53 L Est GFR (MDRD) Non-Af 44 L BUN/Creatinine Ratio 31.2 H Glucose 85 Calcium 8.4 L Discharge Diet: Low fat/ Low Cholesterol Weight Bearing Status: Weight bearing as tolerated Call your doctor if you observe: Fever of 101 or Higher, Shortness of breath, Dizziness, Swelling in the ankles Home Medications: Medications to take at Discharge Acetaminophen [Pain Relief Extra Strength] 1,000 mg PO Q8H PRN PRN 04/25/17 Aspirin [Aspir-Low] 81 mg PO DAILY 04/25/17 Gabapentin [Neurontin] 300 mg PO BIDCM 04/25/17 Levothyroxine [Synthroid] 100 mcg PO DAILY@0600 08/01/17 Ondansetron [Zofran Odt] 4 mg PO Q8H PRN PRN #90 tab 06/14/18 Pantoprazole Sodium [Protonix] 20 mg PO DAILY tablet 06/14/18 Apixaban [Eliquis] 5 mg PO BID 10/01/18 Ergocalciferol (Vitamin D2) [Drisdol] 50,000 unit PO QWEEK 10/01/18 Hydrocodone Bitart/Apap 5-325 [[place] 5/325] 1 tablet PO Q8H PRN PRN 10/01/18 L. Rhamnosus GG/Inulin [Culturelle Capsule] 1 each PO BID 10/01/18 Multivitamin [Multiple Vitamins] 1 each PO DAILY 10/01/18 Polyethylene Glycol 3350 [Miralax] 17 gm PO DAILY 10/01/18 Temazepam [Restoril] 15 mg PO QHS 10/01/18 Menthol/Lanolin/Calamine/Znox [Calmoseptine Ointment] 1 applic TOPICAL BID tube 10/05/18 Ipratropium/Albuterol Sulfate [Duoneb] 3 ml INHALATION Q6H PRN PRN 11/01/18 Bisacodyl [Biscolax] 10 mg RC DAILY PRN 11/03/18 Furosemide [Lasix] 40 mg PO BID 11/03/18 Magnesium Hydroxide [Milk Of Magnesia] 30 ml PO DAILY PRN 11/03/18 Melatonin 4 mg PO QHS PRN 11/03/18 Cefdinir [Omnicef [equiv]] 300 mg PO Q12 #6 capsule 11/07/18 Doxycycline 100 mg PO BID #6 capsule 11/07/18 Following Prescrptions Were Given to Patient: Cefdinir [Omnicef [equiv]] 300 mg PO Q12 #6 capsule Doxycycline 100 mg PO BID #6 capsule Primary Care Physician: Ramirez Curran MD [Primary Care Provider] - Please follow up with your Primary Care Physician in: one week Disposition: Longterm facility Minutes spent on discharge:: 40 Patient Condition:: Stable Medical Necessity - Tobacco Use Smoking Status: Unknown if ever smoked Meaningful Use Info Meaningful Use Diagnoses (Choose all that apply): None applicable, CHF - CHF ANKIT/ARB ordered at discharge?: No Reason ANKIT/ARB not ordered?: Worsening renal dysfunctn Documented LVEF (%): 65 Code Visit Inpatient E&M: 90209 Disch Hosp
--- NOTE | 2018-11-07 10:46 | CASEMGMT ---
Addendum entered by Loraine Kelly 11/07/18 11:04: SW left a message for patient's daughter in law letting her know patient is headed back to [facility] at 1p today. Loraine KOROMA Original Note: Patient is ready for discharge back to [facility]. SW faxed orders to [facility]. Called [facility] and arranged for patient to get picked up at 1p via cot. RN notified as well as nursing secretary and Helena at [facility]. SW will notify family. Plan: [facility] Loraine KOROMA
--- NOTE | 2018-11-07 10:46 | PCM.PN.ID ---
Patient Problems: Active and Suspected Problems Pneumonia (Acute) Subjective: C/o SOB. No fever, no abd pain. - Physical Exam General: Alert, Oriented x3 Lungs: Clear to auscultation, Normal air movement, Diminished Cardiovascular: Regular rate, Regular Rhythm Abdomen: Soft, Non Tender, Non-Distended Skin: Ulcer/ Wound - leg ulcer bandaged Vital Signs Temp Pulse Resp BP Pulse Ox 97.4 F L 77 18 105/79 96 11/07/18 09:48 11/07/18 09:48 11/07/18 09:48 11/07/18 09:48 11/07/18 09:48 Oxygen Flow Rate (L/min) 4 Oxygen Delivery Method Nasal Cannula Weight: 112.8 kg Body Mass Index (BMI) 41.3 Intake and Output for Last 24 Hours 11/05/18 11/06/18 11/07/18 23:59 23:59 23:59 Intake Total 1848 / 1848 1650 / 1650 Output Total 875 / 875 825 / 825 150 / 150 Balance 973 / 973 825 / 825 -150 / -150 Microbiology Past 72 Hours 11/03/18 12:00 Gram Stain - Final Wound - Leg, Right Wound Culture - Final Meth. resistant Staph. aureus Proteus mirabilis Acinetobacter baumannii 11/03/18 10:55 Blood Culture - Preliminary Blood Culture (Wb) - Right Forearm No growth in 48 hours. 11/03/18 10:39 Blood Culture - Preliminary Blood Culture (Wb) - Anticubital Left No growth in 48 hours. 11/03/18 12:00 Urine Culture - Final Urine Catheter - Vitale Citrobacter youngae 11/03/18 15:25 Respiratory Panel (PCR) - Final Interface Orders Laboratory Tests Past 24 Hrs 11/07/18 11/07/18 05:30 05:30 WBC 7.0 RBC 3.35 L Hgb 9.2 L Hct 32.6 L MCV 97.3 MCH 27.5 MCHC 28.2 L RDW 16.6 H RDW Differential 58.6 H Plt Count 252 MPV 9.5 Immature Gran % (Auto) 0.300 Neut % (Auto) 56.8 Lymph % (Auto) 30.0 [place] % (Auto) 9.3 Eos % (Auto) 3.0 Baso % (Auto) 0.6 Absolute Neuts (auto) 4.0 Absolute Lymphs (auto) 2.10 Total Counted Not Reportable Sodium 137 Potassium 4.7 Chloride 101 Carbon Dioxide 30.0 Anion Gap 6 BUN 39 H Creatinine 1.25 H Estim Creat Clear Calc 30.48 Est GFR (MDRD) Af Amer 53 L Est GFR (MDRD) Non-Af 44 L BUN/Creatinine Ratio 31.2 H Glucose 85 Calcium 8.4 L Medical Necessity - Tobacco Use Smoking Status: Unknown if ever smoked Route of nutrition/ use of supplements: [] Nutritional Intake: [] IV Site: [] Vitale Catheter: [] - Assessment/Plan Antibiotics: [] Assessment/Plan: [] sepsis due to CAP - improved. Was on vanc/zosyn. Fever and leukocytosis resolved. Narrowed abx to po doxy/omnicef, plan on stop date 11/10/18. complicated citrobacter uti - abx as above infected R calf wound - cx with AcB, proteus, and MRSA. Abx as above and local wound care. Will follow
--- NOTE | 2018-11-07 12:10 | NURSING ---
Called report to [facility] at [phone] - Requested romero be left in. not willing to leave catheter in. Removed Romero at this time. Dorothy given RN direct number.
== END 2018-11-07 13:20 | disposition intermediate care facility (04) | DRG 871 ==
LOC: ED 11:03 → PCU 12:50
PROVIDERS: Admitting Provider Student in an Organized Health Care Education/Training Program; Emergency Provider Emergency Medicine; Family Provider Internal Medicine; PCP Family Medicine; Referring Provider Student in an Organized Health Care Education/Training Program; Visit Provider Student in an Organized Health Care Education/Training Program
DX: A41.9 Sepsis, unspecified organism (principal); J18.9 Pneumonia, unspecified organism; J96.01 Acute respiratory failure with hypoxia; J96.21 Acute and chronic respiratory failure with hypoxia; I50.23 Acute on chronic systolic (congestive) heart failure; N39.0 Urinary tract infection, site not specified; N17.9 Acute kidney failure, unspecified; Z68.41 Body mass index [BMI] 40.0-44.9, adult; L97.219 Non-pressure chronic ulcer of right calf with unspecified severity; E03.9 Hypothyroidism, unspecified; I48.91 Unspecified atrial fibrillation; Z66 Do not resuscitate; D50.9 Iron deficiency anemia, unspecified; J44.9 Chronic obstructive pulmonary disease, unspecified; K21.9 Gastro-esophageal reflux disease without esophagitis; E66.01 Morbid (severe) obesity due to excess calories; B95.62 Methicillin resistant Staphylococcus aureus infection as the cause of diseases classified elsewhere; I11.0 Hypertensive heart disease with heart failure; B96.4 Proteus (mirabilis) (morganii) as the cause of diseases classified elsewhere; B96.89 Other specified bacterial agents as the cause of diseases classified elsewhere; M06.9 Rheumatoid arthritis, unspecified; E55.9 Vitamin D deficiency, unspecified; I25.10 Atherosclerotic heart disease of native coronary artery without angina pectoris; Y95 Nosocomial condition; I25.2 Old myocardial infarction; Z79.82 Long term (current) use of aspirin; Z79.01 Long term (current) use of anticoagulants; Z79.899 Other long term (current) drug therapy; Z99.81 Dependence on supplemental oxygen
CPT/HCPCS: 36415; 36430; 71045; 80048; 80053; 80202; 81001; 83605; 83880; 85025; 85610; 85730; 86850; 86900; 86920; 86922; 87040; 87070; 87077; 87086; 87088; 87186; 87205; 87449; 87633; 93005; 94640; 99285; J7030; J7040; P9040; A4216; J1940